=== PATIENT | female | born 1995 | race Caucasian/White ===

== ENCOUNTER 2023-05-10 20:47 | Outpatient (REF) | payer OTHER, SELFPAY ==
[2023-05-16 16:09] LABS: Age Gdln ACOG Testing Note (.); IGP, rfx Aptima HPV ASCU Note (.)
== END 2023-05-10 20:48 | disposition home or self-care (01) ==
LOC: LAB 20:47
PROVIDERS: PCP Family Medicine; Visit Provider Physician Assistant
DX: Z12.4 Encounter for screening for malignant neoplasm of cervix (principal)
CPT/HCPCS: G0145

== ENCOUNTER 2023-10-27 09:34 | Emergency (ER) | payer OTHER, SELFPAY ==
[2023-10-27 09:44] VITALS: BP 153/93; PULSE 56; RESP 16; TEMP 36.6; O2SAT 99; BMI 68.0
--- NOTE | 2023-10-27 09:54 | US_ITS ---
The [address] [address] Patient Name: MADDIE PACHECO MRN: [id number] date: 1995 Sex: F Assigned Patient Location: ED.MAIN Current Patient Location: ER Accession/Order Number: [id number] Exam Date: 10/27/2023 10:15 Report Date: 10/27/2023 10:42 At the request of: DUARTE ROBERTS Procedure: US right upper quadrant EXAMINATION: US right upper quadrant HISTORY: Right upper quadrant pain COMPARISON: No relevant comparison available. TECHNIQUE: Transabdominal evaluation of the right upper quadrant. FINDINGS: LIVER: Mild fatty infiltration. Color Doppler demonstrates patent hepatic veins. PORTAL VEIN: Duplex Doppler demonstrates normal hepatopetal flow pattern with flow velocity averaging 26 cm/s. GALLBLADDER: No visible gallstones, wall thickening, or pericholecystic free fluid. Negative sonographic Walters's sign. BILIARY: No abnormal dilation or stones. Common bile duct diameter is within normal limits. PANCREASE: No visible mass, abnormal atrophy, or duct dilation. KIDNEY: No hydronephrosis. No visible mass or stones. Size: 11.6 x 5.9 x 6.5 cm US/US right upper quadrant IMPRESSION: 1. No acute or suspicious findings to account for patient's symptoms. Electronically authenticated by: ULI INGRAM Date: 10/27/2023 10:42
--- NOTE | 2023-10-27 09:59 | ED.ABDPAIN1 ---
HPI - Abdominal Pain General Chief Complaint: Abdominal Pain Stated Complaint: ABD PAIN Time Seen by Provider: 10/27/23 09:38 Source: patient Mode of arrival: walk-in Limitations: no limitations History of Present Illness HPI narrative: 28-year-old female presents for right upper quadrant abdominal pain that she has had intermittently for 3 days. It seems to come on more when she eats. She was seen at another hospital yesterday and had blood work and was given a prescription for an outpatient ultrasound of her gallbladder which she has not yet done. No fever or trauma. Related Data Home Medications Medication Instructions Recorded Confirmed albuterol sulfate 90 mcg/actuation 1 inh inhalation Q6H PRN shortness 10/27/23 10/27/23 aerosol inhaler of breath or wheezing buspirone 15 mg tablet 30 mg PO BIDWM 10/27/23 10/27/23 citalopram 20 mg tablet 20 mg PO DAILY 10/27/23 10/27/23 lisinopril 10 mg tablet 10 mg PO DAILY 10/27/23 10/27/23 omeprazole 20 mg capsule,delayed 20 mg PO DAILY 10/27/23 10/27/23 release Allergies Allergy/AdvReac Type Severity Reaction Status Date / Time sumatriptan [From Imitrex] Allergy Severe Difficulty Verified 10/27/23 09:55 Breathing Review of Systems ROS Narrative A ten point review of systems is negative except as noted above. Exam Narrative Exam Narrative: Nurses note and vital signs reviewed and patient is not hypoxic. General: The patient appears well and in no apparent distress. Patient is resting comfortably on cart. Skin: Warm, dry, no pallor noted. There is no rash noted. Head: Normocephalic, atraumatic Eye: Normal conjunctiva, no drainage Ears, Nose, Mouth, and Throat: oral mucosa is moist. Nares patent. Cardiovascular: Regular Rate and Rhythm Respiratory: Patient is in no distress, no accessory muscle use, lungs are clear to auscultation, no wheezing, rales or rhonchi Back: non-tender GI: Obese, minimal tenderness in the right upper quadrant Musculoskeletal: The patient has no evidence of calf tenderness, no pitting edema, symmetrical pulses noted bilaterally Neurological: A&O, normal speech Psychiatric: Cooperative Constitutional Vital Signs, click to edit/add: Last Vital Signs Temp 98 F 10/27/23 09:44 Pulse 56 L 10/27/23 09:44 Resp 16 10/27/23 09:44 BP 153/93 H 10/27/23 09:44 Pulse Ox 99 10/27/23 09:44 O2 Del Method Room Air 10/27/23 09:44 Course Vital Signs Vital signs: Vital Signs Temperature 98 F 10/27/23 09:44 Pulse Rate 56 L 10/27/23 09:44 Respiratory Rate 16 10/27/23 09:44 Blood Pressure 153/93 H 10/27/23 09:44 Pulse Oximetry 99 10/27/23 09:44 Oxygen Delivery Method Room Air 10/27/23 09:44 Temperature 98 F 10/27/23 09:44 Pulse Rate 56 L 10/27/23 09:44 Respiratory Rate 16 10/27/23 09:44 Blood Pressure 153/93 H 10/27/23 09:44 Pulse Oximetry 99 10/27/23 09:44 Oxygen Delivery Method Room Air 10/27/23 09:44 MDM - Abdominal Pain MDM Narrative Medical decision making narrative: Gallbladder ultrasound here is negative. We obtained records from other hospital and she had a negative noncontrasted CAT scan and her blood work was negative as well. She is being discharged home and will follow-up with her PCP if symptoms persist. Treatment diagnosis and follow-up were discussed with the patient. Differential Diagnosis Differential diagnosis: Likely abdominal pain, constipation and gastroenteritis Imaging Data Gallbladder ultrasound: Radiologist's impression: ITS Impressions Upper Quadrant Ultrasound 10/27/23 09:54 IMPRESSION: 1. No acute or suspicious findings to account for patient's symptoms. Electronically authenticated by: ULI INGRAM Date: 10/27/2023 10:42 Discharge Plan Discharge Chief Complaint: Abdominal Pain Clinical Impression: Abdominal pain Patient Disposition: Home, Self-Care Time of Disposition Decision: 10:49 Condition: Good Mode of Transportation: Private Vehicle Prescriptions / Home Meds: No Action albuterol sulfate 90 mcg/actuation HFA aerosol inhaler 1 inh INHALATION Q6H PRN (Reason: shortness of breath or wheezing) buspirone 15 mg tablet 30 mg PO BIDWM citalopram 20 mg tablet 20 mg PO DAILY lisinopril 10 mg tablet 10 mg PO DAILY omeprazole 20 mg capsule,delayed release(DR/EC) 20 mg PO DAILY Instructions: Abdominal Pain (ED) Stand Alone Forms: Portal Instructions Referrals: JESSICA MARISCAL [Primary Care Provider] - 1 week
== END 2023-10-27 11:15 | disposition home or self-care (01) ==
PROVIDERS: Emergency Provider Emergency Medicine; PCP Family Medicine
DX: R10.11 Right upper quadrant pain (principal); E66.9 Obesity, unspecified; Z68.44 Body mass index [BMI] 60.0-69.9, adult
CPT/HCPCS: 76705; 99284

== ENCOUNTER 2025-03-25 07:46 | Outpatient (OUT) | payer OTHER, SELFPAY ==
--- OUTSIDE RECORDS SUMMARY | 2025-03-20 08:30 | XMS_ITS | Encounter Summary ---
Author Organization [facility] Address [address] [place] [address] Care Team Providers Care Supervisor Pl[employer] Name Role Phone Riddhi Plata MD Primary Care Provider [phone] Encounter Details Date Type Department Care Team (Late st Contact Info) Description 03/20/2025 8:30 AM EDT Ancillary Procedure [facility] [address] [place] [address] Missed menses Social History Tobacco Use Types Packs/Day Years Used Date Smoking Tobacco: Never Smokeless Tobacco: Never Alcohol Use Standard Drinks/Week Comments Never 0 (1 standard drink = 0.6 oz pure alcohol) Caffeine intake: 1-2 cups per day coffee Estimated Date of Delivery Comme nts Yes 10/16/2025 Based on last me nstrual period of 01/09/2025 Sex and Gender Information Value Date Recorded Sex Assigned at Not on file Legal Sex Female 9:44 PM EDT Gender Identity Not on file Sexual Orientation Not on file documented as of this encounter Plan of Treatment Upcoming Encounters Date Type Department Care Team (Late st Contact Info) Description 04/20/2025 9:10 AM EDT Routine [facility] [address] [address] Bin Morales DO [address] [facility] [place] [address] documented as of this encounter Goals Goal Patient Goal Type Associated Problems Recent Progress Patient-Stated? Author Help patient manage antidepressant medication Care Plan Patient on antidepressant monitoring plan Riddhi Atkinson MD Baseline PHQ-9 Care Plan Baseline PHQ-9 No Riddhi Plata MD documented as of this encounter Procedures Procedure Name Priority Date/Time Associated Diagnosis Comments US OB TRANSVAGINAL Routine 03/20/2025 8: 54 AM EDT Missed menses documented in this encounter Results * US OB transvaginal (03/20/2025 8:54 AM EDT) Anatomical Region Laterality Modality Body Ultrasound 03/20/2025 6:11 PM EDT Impressions 03/23/2025 8:01 AM EDT Findings consistent with a live intrauterine gestation, current sonographic age of 9 weeks and 2 days resulting in an estimated date of delivery of October 21, 2025. TRANSCRIBED BY: ELECTRONICALLY SIGNED BY: Aman Amado MD Narrative 03/23/2025 8:01 AM EDT FINDINGS: A single intrauterine gestational sac is present. No subchorionic hemorrhage. A single pole is present. Normal heart rate at 184 beats per minute. Yolk sac also is seen. Current sonographic age is 9 weeks and 2 days. Based on this age, current estimated date of delivery is October 21, 2025. No pelvic fluid or adnexal mass present. Cervical length is 4.3 cm, closed. Procedure Note Aman Amado MD - 03/23/2025 FINDINGS: A single intrauterine gestational sac is present. No subchorionichemorrhage. A single pole is present. Normal heart rate at184 beats per minute. Yolk sac also is seen. Current sonographic age is9 weeks and 2 days. Based on this age, current estimated date of deliveryis October 21, 2025. No pelvic fluid or adnexal mass present. Cervicallength is 4.3 cm, closed. IMPRESSION: Findings consistent with a live intrauterine gestation, currentsonographic age of 9 weeks and 2 days resulting in an estimated date ofdelivery of October 21, 2025. TRANSCRIBED BY: ELECTRONICALLY SIGNED BY: Aman Amado MD us Bin Carmen DO IMG OB US PROCEDURES Final Resul t documented in this encounter Visit Diagnoses Diagnosis Missed menses documented in this encounter Additional Health Concerns Active Problems Noted Date Diagnosed Date Patient on antidepressant monitoring plan 2023 Baseline PHQ-9 02/01/2024 documented as of this encounter Care Teams Supervisor Plastic Sheets Relationship Specialty Start Date End Date Riddhi Plata MD [address] [place] [address] PCP - General Family Medicine 01/16/23 documented as of this encounter
--- OUTSIDE RECORDS SUMMARY | 2025-03-20 09:00 | XMS_ITS | Encounter Summary ---
Author Organization [facility] Address [address] [place] [address] Care Team Providers Care Director Sales And Trade [employer] Name Role Phone Riddhi Plata MD Primary Care Provider [phone] Reason for Visit * Reason Comments Routine Visit Encounter Details Date Type Department Care Team (Late st Contact Info) Description 03/20/2025 9:00 AM EDT Initial [facility] [address] [place] [address] GA: 10w0d Social History Tobacco Use Types Packs/Day Years [...] on file documented as of this encounter Last Filed Vital Signs Vital Sign Reading Time Taken Comments Blood Pressure 118/70 03/20/2025 9:27 AM EDT Pulse - - Temperature - - Respiratory Rate - - Oxygen Saturation - - Inhaled Oxygen Concentration - - Weight 103 kg (227 lb) 03/20/2025 9:27 AM EDT Height - - Body Mass Index 42.89 10/10/2024 3:32 PM EST documented in this encounter Progress Notes * Leslye Chairez LPN - 03/20/2025 9:00 AM EDT Reason for Appointment: Patient ID: Shira Jett is a 29 y.o. female who presents for Routine Visit Patient presents today for a Nurse OB Intake appointment. Patient is 10w0d with a Estimated Date ofDelivery: 10/16/25 OB History Para Term AB Living 3 2 1 2 SAB IAB Ectopic Multiple Live Births # Outcome Date GA Lbr [place]/2nd Weight Sex Type Anes PTL Lv 3 Current 2 Para 11/20/21 8 lb 3 oz Vag-Spont 1 Term 11/18/18 39w0d 8 lb 2 oz M Vag-Spont Current Medications: has a current medication list which includes the following prescription(s): albuterol hfa, buspirone, citalopram, cyanocobalamin, omeprazole, ondansetron odt, and vitamins. Medical History: Active Ambulatory Problems Diagnosis Date Noted Morbid obesity with body mass index of 60.0-69.9 in [place] 01/26/2023 Polycystic ovarian disease 01/26/2023 Primary hypertension 01/26/2023 Adjustment disorder with anxiety 11/30/2021 Amnesia 05/17/2023 Anxiety 07/07/2019 Anemia 06/26/2019 Depression 06/13/2019 Disorder of endocrine system 05/17/2023 Family history of diabetes during 11/28/2021 Family history of thrombosis 03/17/2022 Frequent headaches 05/17/2023 Gastroesophageal reflux disease 12/15/2019 Gestational diabetes mellitus (GDM) ([facility]) 12/09/2018 History of diet controlled gestational diabetes mellitus (GDM) 11/30/2021 Iron deficiency anemia 12/29/2019 Irregular periods 05/17/2023 Menorrhagia with regular cycle 05/17/2023 Asthma ([facility]) 12/09/2018 Class 3 severe obesity due to excess calories with serious comorbidity and body mass index (BMI) of50.0 to 59.9 in adult [place] 05/17/2023 Nausea and vomiting 05/17/2023 Pneumonia due to infectious organism 07/30/2022 Preeclampsia in period ([facility]) 11/26/2021 Acute pulmonary embolism ([facility]) 05/17/2023 Single subsegmental pulmonary embolism without acute cor pulmonale ([facility]) 05/17/2023 Seasonal allergic rhinitis due to pollen 12/15/2019 Thyroid nodule 05/17/2023 Urinary tract infection without hematuria 05/17/2023 LUCIANO on CPAP 02/22/2023 History of pulmonary embolism 03/17/2022 Resolved Ambulatory Problems Diagnosis Date Noted No Resolved Ambulatory Problems Past Medical History: Diagnosis Date Acute memory impairment COVID 02/2020 Encounter for insertion of Mirena IUD GERD without esophagitis Gestational diabetes ([facility]) H/O blood clots H/O gastric bypass H/O: hypertension High blood pressure History of being hospitalized Hormone imbalance Intrauterine device surveillance Irregular bleeding Morbid obesity with BMI of 50.0-59.9, adult [place] Nausea Nausea with vomiting Pneumonia 07/30/2022 hypertension ([facility]) Pulmonary embolism ([facility]) 11/2021 Well woman exam Family History Problem Relation Name Age of Onset Hypertension Mother Diabetes Father Hypertension Father Mental illness Father Cancer Maternal Grandmother Cancer Paternal Grandmother Diabetes Paternal Grandfather Social History Tobacco Use Smoking status: Never Smokeless tobacco: Never Substance Use Topics Alcohol use: Never Comment: Caffeine intake: 1-2 cups per day coffee Drug use: Never Past Surgical History: Procedure Laterality Date CT ANGIOGRAM HEART CORONARY 07/30/2022 CT ANGIOGRAM TAVR 07/30/2022 CT ANGIOGRAM HEART CORONARY 11/23/2018 CT ANGIOGRAM TAVR 11/23/2018 GASTRIC BYPASS 04/23/2024 PELVIC LAPAROSCOPY 11/03/2022 with removal of IUD US GUIDED FINE PERCUTANEOUS ASPIRATION 06/14/2020 US GUIDED FINE PERCUTANEOUS ASPIRATION 06/14/2020 Allergies Allergen Reactions Sumatriptan Unknown and Anaphylaxis IMITREX FOR MIGRAINES Vitals: Estimated body mass index is 42.89 kg/m² as calculated from the following: Height as of 10/10/24: 5' 1 . Weight as of this encounter: 227 lb. BP: 118/70 Patient's last menstrual period was 01/09/2025. Assessment/Plan Diagnoses and all orders for this visit: Missed menses - Type and screen; Future - ABO/Rh; Future - CBC and differential - Hemoglobin A1c - RPR - Rubella antibody, IgG - Hepatitis B surface antigen - Hepatitis C antibody - HIV-1 and HIV-2 antibodies - Urine culture - POCT , urine manually resulted - POCT urinalysis dipstick manually resulted , unspecified [facility] - Type and screen; Future - ABO/Rh; Future - CBC and differential - Hemoglobin A1c - RPR - Rubella antibody, IgG - Hepatitis B surface antigen - Hepatitis C antibody - HIV-1 and HIV-2 antibodies - Rapid drug screen, urine; Future - ondansetron ODT (Zofran-ODT) 4 MG disintegrating tablet; Take 1 tablet (4 mg) by mouth every 6 (six) hours if needed for nausea or vomiting - Vit-Fe Fumarate-FA ( Vitamins) 28-0.8 MG tablet; Take 1 tablet by mouth Daily Encounter for supervision of normal first in first trimester ([facility]) - Rapid drug screen, urine; Future - Vit-Fe Fumarate-FA ( Vitamins) 28-0.8 MG tablet; Take 1 tablet by mouth Daily Nausea - ondansetron ODT (Zofran-ODT) 4 MG disintegrating tablet; Take 1 tablet (4 mg) by mouth every 6 (six) hours if needed for nausea or vomiting Nurse Note: OB Intake: Patient presents today for first OB visit. Patients history has been reviewed in great detail including any potential risks. Patient signed consent forms and patient desires testing in both trimesters. Patient currently has no complaints and has been advised to drink 6-8 glasses of water a day, eatno raw or undercooked meat, and stay away from [facility]. Patient has also been advised to not change litter boxes and eat 6 small meals a day. Patient has been consulted regarding the do's and don'ts ofpregnancy. Patient was given labs and all questions and concerns were answered. Patient given Frohna to have completed with initial labs and scripts for Zofran and prenatals sent in at this time. Follow Up: Patient is to return in 4 weeks for routine OB appointment. Follow Up: Patient is to have labs drawn at directed and return to office for initial OB appointment with provider. Patient may call office as needed with any concerns or questions. Nurse Visit Completed by: Leslye Chairez LPN documented in this encounter Plan of Treatment Upcoming Encounters Date Type Department Care Team (Late st Contact Info) Description 04/20/2025 9:10 AM EDT Routine [facility] [address] [place] [address] Bin Morales, DO [address] [place] [place] [address] Scheduled Orders Name Type Priority Associated Diagnoses Orde r Schedule Type and screen Lab Routine Missed menses , unspecified gestational age ([facility]) Expected: 03/20/2025 (Approximate), Expires: 03/20/2026 ABO/Rh Lab Routine Missed menses , unspecified gestational age ([facility]) Expected: 03/20/2025 (Approximate), Expires: 03/20/2026 CBC and differential Lab Routine Missed menses , unspecified gestational age ([facility]) Ordered: 03/20/2025 Hemoglobin A1c Lab Routine Missed menses , unspecified gestational age ([facility]) Ordered: 03/20/2025 RPR Lab Routine Missed menses , unspecified gestational age ([facility]) Ordered: 03/20/2025 Rubella antibody, IgG Lab Routine Missed menses , unspecified gestational age ([facility]) Ordered: 03/20/2025 Hepatitis B surface antigen Lab Routine Missed menses , unspecified gestational age ([facility]) Ordered: 03/20/2025 Hepatitis C antibody Lab Routine Missed menses , unspecified gestational age ([facility]) Ordered: 03/20/2025 HIV-1 and HIV-2 antibodies Lab Routine Missed menses , unspecified gestational age ([facility]) Ordered: 03/20/2025 Urine culture Microbiology Routine Missed menses Ordered: 03/20/2025 Rapid drug screen, urine Lab Routine , unspecified gestational age ([facility]) Encounter for supervision of normal first in first trimester ([facility]) Expected: 03/20/2025 (Approximate), Expires: 03/20/2026 documented as of this encounter Goals Goal Patient Goal Type Associated Problems Recent Progress Patient-Stated? Author Help patient manage antidepressant medication Care Plan Patient on antidepressant monitoring plan No Riddhi Plata MD Baseline PHQ-9 Care Plan Baseline PHQ-9 No Riddhi Plata MD documented as of this encounter Procedures Procedure Name Priority Date/Time Associated Diagnosis Comments POCT , URINE Routine 03/20/2025 9:06 AM EDT Missed menses POCT URINALYSIS DIPSTICK Routine 03/20/2025 9:06 AM EDT Missed menses documented in this encounter Results * POCT urinalysis dipstick manually resulted (03/20/2025 9:06 AM EDT) Color, UA Yellow Clarity, UA Clear Glucose, UA Negative Negative - 2000(110) ++++ mg/dL Bilirubin, UA Negative Negative - 4(70) +++ mg/dL Ketones, UA Negative Negative - 160(16) ++++ mg/dL Spec Grav, UA 1.020 1 - 1.03 Blood, UA Negative Negative - 50 Raul/mcL pH, UA 6.0 5 - 9 Protein, UA Negative Negative - 2000(20) ++++ mg/dL Urobilinogen, UA 2.0 0.2 - 12 mg/dL Leukocytes, UA Trace Negative - 500+++ Ramo/mcL Nitrite, UA Negative Negative - Positive Urine 03/20/2025 9:06 AM EDT Bin Carmen DO POINT OF CARE TEST ENTER/EDIT OR DERABLES Final Result * POCT , urine manually resulted (03/20/2025 9:06 AM EDT) Preg Test, Ur Positive Negative Urine 03/20/2025 9:06 AM EDT Bin Carmen DO POINT OF CARE TEST ENTER/EDIT OR DERABLES Final Result documented in this encounter Visit Diagnoses Diagnosis Missed menses , unspecified gestational age ([facility]) Encounter for supervision of normal first in first trimester ([facility]) Nausea Nausea alone documented in this encounter Additional Health Concerns Active Problems Noted Date Diagnosed Date Patient on antidepressant monitoring plan 2023 Baseline PHQ-9 02/01/2024 documented as of this encounter Care Teams Director Sales And Trade Marketing Relationship Specialty Start Date End Date Riddhi Plata MD [address] [place] [address] PCP - General Family Medicine 01/16/23 documented as of this encounter
--- OUTSIDE RECORDS SUMMARY | 2025-03-25 07:50 | XMS_ITS | Encounter Summary ---
Author Organization Movie[employer] tem Address [id number] [address] [place] [address] Care Team Providers Care Coal Trimmer Machine Operator Name Role Phone Riddhi Plata MD Primary Care Provider [phone] Reason for Visit * Reason Comments Med Refill Encounter Details Date Type Department Care Team (Late st Contact Info) Description 10/19/2024 Refill [facility] [address] [facility]. [address] [place] [phone] Moriah Lira PAPamelaC [address] [facility] [address] [place] [address] Malnutrition following gastrointestinal surgery; Postsurgical malabsorption; H/O gastric bypass Social History Tobacco Use Types Packs/Day Years Used Date Smoking Tobacco: Never Smokeless Tobacco: Never Alcohol Use Standard Drinks/Week Comments Not Currently 0 (1 standard drink = 0.6 oz pur e alcohol) social AHC Utilities Answer Date Recorded In the past 12 months has [employer], gas, oil, or water [employer] threatened to shut off services in your home? No 04/23/2024 AUDIT-C Answer Date Recorded Q1: How often do you have a drink containing alcohol? Never 04/23/2024 Q2: How many drinks containi ng alcohol do you have on a typical day when you are drinking? Patient does not drink Q3: How often do you have si x or more drinks on one occasion? Never 04/23/2024 PHQ-2 Answer Date Recorded Total Score 0 04/23/2024 PRAPARE - Transportation Answer Date Re corded In the past 12 months, has l ack of transportation kept you from medical appointments or from getting medications? No 04/10 In the past 12 months, has l ack of transportation kept you from meetings, work, or from getting things needed for daily living? No 04/23/2024 Housing Instability Answer Date Recorde d Are you worried or concerned that in the next two months you may not have stable housing that you own, rent or stay in as a part of a household? No 04/23/2024 Childcare Answer Date Recorded Childcare Unknown 02/13/2019 Employment Answer Date Recorded Employment Unknown 02/13/2019 Hunger Screening Answer Date Recorded Within the past 12 months we worried whether our food would run out before we got money to buy more. Never True 04/23/2024 Within the past 12 months th e food we bought just didn't last and we didn't have money to get more. Never True 04/23/2024 Purpose - Life Answer Date Recorded Purpose and direction in life Unknown Comments No Sex and Gender Information Value Date Recorded Sex Assigned at Female 07/30/2022 9:31 PM EST Legal Sex Female 11:49 AM EDT Gender Identity Female 07/30/2022 9:31 PM EST Sexual Orientation Straight 07/30/2022 9: 31 PM EST documented as of this encounter Plan of Treatment Upcoming Encounters Date Type Department Care Team (Late st Contact Info) Description 04/23/2025 8:30 AM EDT Office Visit [facility] [address] [facility]. [address] [place] [phone] Ken Manzo MD [address] [facility] [address] [place] [address] documented as of this encounter Goals Goal Patient Goal Type Associated Problems Recent Progress Patient-Stated? Author safe discharge to home General Yes Kate Blanton, RN Note: Evaluation of progress towards goal: safe transition from hospital to home with family support. documented as of this encounter Visit Diagnoses Diagnosis Malnutrition following gastrointestinal surgery Other and unspecified postsurgical nonabsorption Postsurgical malabsorption H/O gastric bypass documented in this encounter Additional Health Concerns Assessment Noted Time PHQ-9 Depression Total Score: 0 04/23/20 24 3:05 PM EDT documented as of this encounter Care Teams Coal Trimmer Machine Operator Relationship Specialty Start Date End Date Riddhi Plata MD PCP - General Family Medicine 12/09/23 documented as of this encounter
--- OUTSIDE RECORDS SUMMARY | 2025-03-25 07:50 | XMS_ITS | Encounter Summary ---
Author Organization [employer] tem Address [id number] [address] [place] [address] Care Team Providers Care Health Counselor Name Role Phone Riddhi Plata MD Primary Care Provider [phone] Reason for Visit * Reason Comments Med Refill Encounter Details Date Type Department Care Team (Late st Contact Info) Description 09/11/2024 Refill [facility] [address] [facility]. [address] [place] [phone] Moriah Lira PAPamelaC [address] [facility] [address] [place] [address] Social History Tobacco Use Types Packs/Day Years Used Date Smoking Tobacco: Never Smokeless Tobacco: Never Alcohol Use Standard Drinks/Week Comments Not Currently 0 (1 standard drink = 0.6 oz pur e alcohol) social AHC Utilities Answer Date Recorded In the past 12 months has [employer], gas, oil, or water company threatened to shut off services in your [...] PM EST documented as of this encounter Miscellaneous Notes * Telephone Encounter - Moriah Lira PA-C - 09/11/2024 8:12 PM EST Needs appointment documented in this encounter Plan of Treatment Upcoming Encounters Date Type Department Care Team (Late st Contact Info) Description 04/23/2025 8:30 AM EDT Office Visit [facility] [address] [facility]. [address] [place] [phone] Ken Manzo MD [address] [address] documented as of this encounter Goals Goal Patient Goal Type Associated Problems Recent Progress Patient-Stated? Author safe discharge to home General Yes Kate Blanton, RN Note: Evaluation of progress towards goal: safe transition from hospital to home with family support. documented as of this encounter Visit Diagnoses Not on filedocumented in this encounter Additional Health Concerns Assessment Noted Time PHQ-9 Depression Total Score: 0 04/23/20 24 3:05 PM EDT documented as of this encounter Care Teams Health Counselor Relationship Specialty Start Date End Date Riddhi Plata MD PCP - General Family Medicine 12/09/23 documented as of this encounter
--- OUTSIDE RECORDS SUMMARY | 2025-03-25 07:50 | XMS_ITS | Clinical Summary ---
Author Organization [employer] tem Address [id number] [address] [place] [address] Care Team Providers Care Fluxer Name Role Phone Riddhi Plata MD Primary Care Provider [phone] Allergies Active Allergy Reactions Criticality Noted Date Comments Sumatriptan Anaphylaxis,Other (S ee Comments) High 11/28/2018 IMITREX FOR MIGRAINES Medications albuterol (PROVENTIL HFA;VENTOLIN HFA) 90 mcg/actuation inhalerIndications: Mild intermittent asthma, unspecified whether complicated Inhale 2 puffs every 4 (four) hours as needed for wheezing. 18 g 07/28/20 22 Active lisinopriL (PRINIVIL,ZESTRIL) 20 mg tablet Take 0.5 tablets (10 mg total) by mouth in the morning. Active citalopram (CeleXA) 20 mg tabletIndications:a nxiety with depression Take 1 tablet (20 mg total) by mouth nightly Indications: anxiousness associated with depression. Active omeprazole (PriLOSEC) 40 mg capsule Take 1 capsule (40 mg total) by mouth every morning before breakfast. 90 capsule 04/24/20 24 Active folic acid (FOLVITE) 1 mg tabletIndications:H istory of Arlene-en-Y gastric bypass,Postsurgical malabsorption,Malnu trition following gastrointestinal surgery,Folate deficiency Take 1 tablet (1 mg total) by mouth in the morning. 90 tablet 01/03/20 Active ferrous sulfate 325 (65 FE) MG tabletIndications:H istory of Arlene-en-Y gastric bypass,Postsurgical malabsorption,Malnu trition following gastrointestinal surgery,Iron deficiency Take 1 tablet (325 mg total) by mouth in the morning. 90 tablet 01/03/20 Active cyanocobalamin (VITAMIN B-12) 1,000 mcg/mL injectionIndication s:History of Arlene-en-Y gastric bypass,Postsurgical malabsorption,Malnu trition following gastrointestinal surgery,B12 deficiency Inject 1 mL (1,000 mcg total) into the appropriate muscle every 30 (thirty) days. 3 mL 1 01/03/20 Active syringe with needle (BD LUER-KARENA SYRINGE) 3 mL 25 x 1 1/2 syringeIndications: History of Arlene-en-Y gastric bypass,Postsurgical malabsorption,Malnu trition following gastrointestinal surgery,B12 deficiency 1 SYRG by miscellaneous route every 30 (thirty) days. 3 each 1 01/03/20 Active Active Problems Problem Noted Date Diagnosed Date H/O gastric bypass 12/30/2024 Postsurgical malabsorption 12/30/2024 Malnutrition following gastrointestinal surgery 12/30/2024 Class 3 severe obesity with body mass index (BMI) of 60.0 to 69.9 in adult 04/23/2024 LUCIANO on CPAP 02/22/2023 History of pulmonary embolism 03/17/2022 Family history of thrombosis 03/17/2022 Asthma 12/09/2018 Resolved Problems Problem Noted Date Diagnosed Date Resolved Date Pneumonia due to infectious organism, unspecified laterality, unspecified part of lung 07/30/2022 05/24/2023 Gestational diabetes 12/09/2018 024 Preeclampsia, severe 11/23/2018 024 Encounters Date Type Department Care Team Description 01/01/2025 11:30 AM EDT Office Visit [facility] [address] [place] [phone] Ken Manzo MD Hoitenga, Kathleen M, PAPamelaC History of Arlene-en-Y gastric bypass (Primary Dx); Postsurgical malabsorption; Malnutrition following gastrointestinal surgery; History of anemia; B12 deficiency; Iron deficiency; Folate deficiency 01/01/2025 9:10 AM EDT - 01/01/2025 11:59 PM EDT Hospital Encounter [facility] [address] [place] [phone] Malnutrition following gastrointestinal surgery; Postsurgical malabsorption; H/O gastric bypass; History of anemia Discharge Disposition: Home 01/01/2025 Travel from Last 3 Months Immunizations No known immunizations Family History Medical History Relation Name Comments Arthritis Father Philip COPD Father Philip Clotting disorder Father Philip Depression Father Philip Diabetes Father Philip Hypertension Father Philip Mental illness Father Philip defects Maternal Grandfather Breast cancer Maternal Grandmother Bhavana Diabetes Maternal Grandmother Bhavana Ovarian cancer Maternal Grandmother Bhavana Anemia Mother Lynn Diabetes Mother Lynn Hypertension Mother Lynn defects Paternal Grandfather Shola Diabetes Paternal Grandfather Shola Asthma Paternal Grandmother Gary Breast cancer Paternal Grandmother Gary Diabetes Paternal Grandmother Gray Anesthesia problems Neg Hx Relation Name Status Comments Father Philip Alive Maternal Grandfather Maternal Grandmother Bhavana Mother Lynn Alive Paternal Grandfather Shola Paternal Grandmother Gary Social History Tobacco Use Types Packs/Day Years Used Date Smoking Tobacco: Never Smokeless Tobacco: Never Tobacco Cessation:Counseling Given: Not Answered Alcohol Use Standard Drinks/Week Comments Not Currently 0 (1 standard drink = 0.6 oz pur e alcohol) social [employer] Utilities Answer Date Recorded In the past 12 months has e [email or web address], gas, oil, or water [employer] threatened to shut off services in your [...] got money to buy more. Never True 12/15/2024 Within the past 12 months th e food we bought just didn't last and we didn't have money to get more. Never True 12/15/2024 Purpose - Life Answer Date Recorded Purpose and direction in life Unknown Comments No Sex and Gender Information Value Date Recorded Sex Assigned at Female 07/30/2022 9:31 PM EST Legal Sex Female 11:49 AM EDT Gender Identity Female 07/30/2022 9:31 PM EST Sexual Orientation Straight 07/30/2022 9: 31 PM EST Last Filed Vital Signs Vital Sign Reading Time Taken Comments Blood Pressure 110/73 01/01/2025 11:00 AM EDT Pulse 84 01/01/2025 11:00 AM EDT Temperature 36.6 C (97.8 F) 12/15/2024 1:00 PM EDT Respiratory Rate 18 12/15/2024 2:31 PM EDT Oxygen Saturation 100% 01/01/2025 11: 00 AM EDT Inhaled Oxygen Concentration - - Weight 108.7 kg (239 lb 11.2 oz) 2024 11:00 AM EDT Height 154.9 cm (5' 0.98 ) 01/01/2025 1 1:00 AM EDT Body Mass Index 45.31 01/01/2025 11:00 AM EDT Plan of Treatment Upcoming Encounters Date Type Department Care Team (Late st Contact Info) Description 04/23/2025 8:30 AM EDT Office Visit [facility] [address] [facility] [address] [place] [phone] Ken Manzo MD [address] [address] Health Maintenance Due Date Last Done Comments Pap Smear 2015 DTaP,Tdap and Td Vaccines (7 - Td or Tdap) 12/01/2018 12/01/2008, 01/14/1999, 10/23/1996, Additional history exists Depression Screening 04/23/2025 04/23/2024 Adult BMI Follow Up Plan 05/01/2025 05/01/2024 Influenza Vaccine 05/11/2025 08/11/2019, 07/11/2011 Adult BMI Screening 01/01/2026 01/01/2025 Tobacco Screening 01/01/2026 01/01/2025 Goals Goal Patient Goal Type Associated Problems Recent Progress Patient-Stated? Author safe discharge to home General Yes Kate Blanton, RN Note: Evaluation of progress towards goal: safe transition from hospital to home with family support. Medical Devices Not on file Procedures Procedure Name Priority Date/Time Associated Diagnosis Comments CBC WITH AUTO DIFFERENTIAL Routine 01/01/2025 9:09 AM EDT Malnutrition following gastrointestinal surgery Postsurgical malabsorption H/O gastric bypass History of anemia FERRITIN Routine 01/01/2025 9:09 AM EDT Malnutrition following gastrointestinal surgery Postsurgical malabsorption H/O gastric bypass History of anemia FOLATE Routine 01/01/2025 9:09 AM EDT Malnutrition following gastrointestinal surgery Postsurgical malabsorption H/O gastric bypass History of anemia IRON AND TIBC Routine 01/01/2025 9:09 AM EDT Malnutrition following gastrointestinal surgery Postsurgical malabsorption H/O gastric bypass History of anemia LIVER PANEL Routine 01/01/2025 9:09 AM EDT Malnutrition following gastrointestinal surgery Postsurgical malabsorption H/O gastric bypass History of anemia THIAMIN (VITAMIN B1), WB Routine 01/01/2025 9:09 AM EDT Malnutrition following gastrointestinal surgery Postsurgical malabsorption H/O gastric bypass History of anemia VITAMIN B12 Routine 01/01/2025 9:09 AM EDT Malnutrition following gastrointestinal surgery Postsurgical malabsorption H/O gastric bypass History of anemia VITAMIN D 25 HYDROXY Routine 01/01/2025 9:09 AM EDT Malnutrition following gastrointestinal surgery Postsurgical malabsorption H/O gastric bypass History of anemia from Last 3 Months Results * Thiamin (Vitamin B1), WB (01/01/2025 9:09 AM EDT) Pathologist [facility] Thiamine 118 70 - 180 nmol/L 01/04/2025 5:06 AM EDT [facility] Comment: NOTE ADDITIONAL INFORMATION This test was developed and its performance characteristics determined by [facility] in a manner consistent with CLIA requirements. This test has not been cleared or approved by the U.S. Food and Drug Administration. Test Performed by: [facility] - [facility] [address] [place] [address] Answering Service Agent: Jayce Daniels Ph.D.; CLIA# [id number] Blood Blood / Unknown 01/01/2025 9 :09 AM EDT 01/01/2025 9:11 AM EDT us May Dunlap ELECTRONIC TECHNOLOGIST-BANKRUPTCY LEGAL ASSISTANT LAB BLOOD ORDERABLES Fi nal Result [address] [place] [address] * (ABNORMAL) CBC auto differential (01/01/2025 9:09 AM EDT) Pathologist [facility] White Blood Cells 10.5 4.0 - 11.0 X10E9/L 01/01/2025 1:40 PM EDT [facility] RBC count 4.45 3.80 - 5.20 X10E12/L 01/01/2025 1:40 PM EDT [facility] Hemoglobin 12.8 11.7 - 15.5 g/dL 01/01/2025 1:40 PM EDT [facility] Hematocrit 38.0 35 - 47 % 01/01/2025 1:40 PM EDT [facility] MCV 85 80 - 100 fL 01/01/2025 1:40 PM EDT [facility] MCH 28.8 27 - 34 pg 01/01/2025 1:40 PM EDT [facility] MCHC 33.8 32 - 36 g/dL 01/01/2025 1:40 PM EDT [facility] RDW 14.2 11.5 - 15.0 % 01/01/2025 1:40 PM EDT [facility] Platelets 308 150 - 450 X10E9/L 01/01/2025 1:40 PM EDT [facility] MPV 8.7 7 - 12 fL 01/01/2025 1:40 PM EDT [facility] % neutrophils 57.9 % 01/01/2025 1:40 PM EDT [facility] % lymphocytes 36.4 % 01/01/2025 1:40 PM EDT [facility] % monocytes 4.1 % 01/01/2025 1:40 PM EDT [facility] % eosinophils 0.9 % 01/01/2025 1:40 PM EDT [facility] % Basophils 0.7 % 01/01/2025 1:40 PM EDT [facility] Neutrophils Absolute (A) 6.0 1.5 - 6.6 X10E9/L 01/01/2025 1:40 PM EDT [facility] Lymphocytes Absolute 3.8(H) 1.0 - 3.5 X10E9/L 01/01/2025 1:40 PM EDT [facility] Monocytes Absolute 0.4 0 - 0.9 X10E9/L 01/01/2025 1:40 PM EDT [facility] Eosinophils Absolute 0.1 0.0 - 0.4 X10E9/L 01/01/2025 1:40 PM EDT [facility] Basophils Absolute 0.1 0.0 - 0.2 X10E9/L 01/01/2025 1:40 PM EDT [facility] Blood / Unknown 01/01/2025 9 :09 AM EDT 01/01/2025 9:11 AM EDT [facility] Germ[facility] ELECTRONIC TECHNOLOGIST-[facility] BLOOD ORDERABLES Fi nal Result Performing Organization Address City/[facility]/ZIP Co de Phone Number [facility] [address] [place] [address], [address] [address] * (ABNORMAL) Iron and TIBC (01/01/2025 9:09 AM EDT) Iron 36(L) 50 - 170 ug/dL 01/01/2025 1:55 PM EDT [facility] Tibc-calc only do not order 346 250 - 425 ug/dL 01/01/2025 1:55 PM EDT [facility] Iron Saturation 10(L) 15 - 50 % SATURATION 01/01/2025 1:55 PM EDT [facility] PLASMA 01/01/2025 9:09 AM EDT 01/01/2025 9:11 AM EDT May Germán ELECTRONIC TECHNOLOGIST-[facility] BLOOD ORDERABLES Fi nal Result Performing Organization Address [facility]/ZIP Co de Phone Number [facility] [address] [place] [address], [facility] [address] [place] [address] * Vitamin D 25 hydroxy (01/01/2025 9:09 AM EDT) Vit D, 25-Hydroxy 32.4 30 - 100 ng/mL 01/01/2025 2:17 PM EDT [facility] Comment: Vitamin D status 25 [place] Vitamin D Deficiency <20 ng/mL Insufficiency 20-29 ng/mL Sufficiency 30-100 ng/mL Toxicity >100 ng/mL NOTE: A pediatric reference range has not been established by the sheep farm worker of this kit. The [place] [employer] recommends a Vitamin D level of = or >20ng/mL in infants and children. PLASMA 01/01/2025 9:09 AM EDT 01/01/2025 9:11 AM EDT May Dunlap ELECTRONIC TECHNOLOGIST-BANKRUPTCY LEGAL ASSISTANT LAB BLOOD ORDERABLES Fi nal Result Performing Organization Address City/[facility]/ZIP Co de Phone Number [facility] [address] [place] [address], [address] [address] * (ABNORMAL) Folate (01/01/2025 9:09 AM EDT) Folate 4.0(L) >5.8 ng/mL 01/01/2025 2:14 PM EDT [facility] Comment:NEW REFERENCE RANGE PLASMA 01/01/2025 9:09 AM EDT 01/01/2025 9:11 AM EDT May Dunlap ELECTRONIC TECHNOLOGIST-BANKRUPTCY LEGAL ASSISTANT LAB BLOOD ORDERABLES Fi nal Result Performing Organization Address [facility]/ZIP Co de Phone Number [facility] [address] [place] [address], [address] [address] * Ferritin (01/01/2025 9:09 AM EDT) Ferritin 40 11 - 307 ng/mL 01/01/2025 2:11 PM EDT [facility] PLASMA 01/01/2025 9:09 AM EDT 01/01/2025 9:11 AM EDT May Dunlap ELECTRONIC TECHNOLOGIST-BANKRUPTCY LEGAL ASSISTANT LAB BLOOD ORDERABLES Fi nal Result Performing Organization Address City/[facility]/ZIP Co de Phone Number [facility] [address] [place] [address], [address] [address] * Vitamin B12 (01/01/2025 9:09 AM EDT) Vitamin B-12 379 180 - 914 pg/mL 01/01/2025 2:13 PM EDT [facility] Serum / Unknown 01/01/2025 9 :09 AM EDT 01/01/2025 9:11 AM EDT May Dunlap ELECTRONIC TECHNOLOGIST-BANKRUPTCY LEGAL ASSISTANT LAB BLOOD ORDERABLES Fi nal Result [facility] [address] [facility] [address] [place] [address] * Liver panel (01/01/2025 9:09 AM EDT) Alkaline phosphatase 95 39 - 130 U/L 01/01/2025 1:55 PM EDT [facility] AST 18 0 - 41 U/L 01/01/2025 1:55 PM EDT [facility] ALT 24 0 - 31 U/L 01/01/2025 1:55 PM EDT [facility] Total Bilirubin 0.4 0.3 - 1.2 mg/dL 01/01/2025 1:55 PM EDT [facility] Bilirubin, direct 0.2 0.0 - 0.4 mg/dL 01/01/2025 1:55 PM EDT [facility] Albumin 4.1 3.2 - 5.3 g/dL 01/01/2025 1:55 PM EDT [facility] Total Protein 7.1 6.0 - 8.0 g/dL 01/01/2025 1:55 PM EDT [facility] PLASMA 01/01/2025 9:09 AM EDT 01/01/2025 9:11 AM EDT May Dunlap ELECTRONIC TECHNOLOGIST-BANKRUPTCY LEGAL ASSISTANT LAB BLOOD ORDERABLES Fi nal Result [facility] [address] [facility] [place] [address] from Last 3 Months Insurance [employer] Member Subscriber Plan / Payer (Ef fective 2023-Present) Name:Shira Jett Relation to Subscriber:Self Name:JohnieShira Libby Payer ID:[id number] (NAIC) Type:Not on file Address: [place] [phone] Advance Directives * Full Code (Latest Code Status on File) Date Activated Date Inactivated Comments 04/23/2024 11:06 AM 04/24/2024 4:47 PM * Full Code Date Activated Date Inactivated Comments 07/30/2022 11:42 PM 07/31/2022 2:48 PM * Full Code Date Activated Date Inactivated Comments 11/24/2018 10:44 PM 11/27/2018 4:48 PM Care Teams Fluxer Relationship Specialty Start Date End Date Riddhi Plata MD PCP - General Family Medicine 12/09/23
--- OUTSIDE RECORDS SUMMARY | 2025-03-25 07:50 | XMS_ITS | Encounter Summary ---
Author Organization [employer] tem Address [facility]-[id number] [address] [place] [address] Care Team Providers Care Distillery Supervisor Name Role Phone Riddhi Plata MD Primary Care Provider [phone] Reason for Visit * Reason Comments Med Refill Encounter Details Date Type Department Care Team (Late st Contact Info) Description 09/04/2024 Refill [facility] [address] [facility]. [address] [place] [phone] Moriah Lira PAPamelaC [address] [facility] [address] [place] [address] Social History Tobacco Use Types Packs/Day Years Used Date Smoking Tobacco: Never Smokeless Tobacco: Never Alcohol Use Standard Drinks/Week Comments Not Currently 0 (1 standard drink = 0.6 oz pur e alcohol) social [employer] Utilities Answer Date Recorded In the past 12 months has [employer], gas, oil, or water company threatened to [...] Telephone Encounter - Moriah Lira PA-C - 09/04/2024 7:50 AM EST Needs appointment documented in this encounter Plan of Treatment Upcoming Encounters Date Type Department Care Team (Late st Contact Info) Description 04/23/2025 8:30 AM EDT Office Visit [facility] [address] [facility] [place] [phone] Ken Manzo MD [address] [address] documented as of this encounter Goals Goal [...] documented as of this encounter Care Teams Distillery Supervisor Relationship Specialty Start Date End Date Riddhi Plata MD PCP - General Family Medicine 12/09/23 documented as of this encounter
--- OUTSIDE RECORDS SUMMARY | 2025-03-25 07:50 | XMS_ITS | Encounter Summary ---
Author Organization [employer] tem Address [facility] [place]-[id number] [address] [place] [address] Care Team Providers Care Toddler Lead Teacher Name Role Phone Riddhi Plata MD Primary Care Provider [phone] Reason for Visit * Reason Comments Med Refill Encounter Details Date Type Department Care Team (Late st Contact Info) Description 07/14/2024 Refill [facility] [address] [facility]. [address] [place] [address] Moriah Lira PAPamelaC [address] [facility] [address] [place] [address] Social History Tobacco Use Types Packs/Day Years Used Date Smoking Tobacco: Never Smokeless Tobacco: Never Alcohol Use Standard Drinks/Week Comments Not Currently 0 (1 standard drink = 0.6 oz pur e alcohol) social [facility] Utilities Answer Date Recorded In the past 12 months has [employer], gas, oil, or water company threatened to [...] Telephone Encounter - Moriah Lira PA-C - 07/14/2024 3:03 PM EST Will discuss possible need for refill at upcoming appointment 07/24/24. documented in this encounter Plan of Treatment Upcoming Encounters Date Type Department Care Team (Late st Contact Info) Description 04/23/2025 8:30 AM EDT Office Visit [facility] [address] [facility] [address] [place] [address] Ken Manzo MD [address] [facility] [place] [address] [place] [address] documented as of this encounter Goals Goal [...] documented as of this encounter Care Teams Toddler Lead Teacher Relationship Specialty Start Date End Date Riddhi Plata MD PCP - General Family Medicine 12/09/23 documented as of this encounter
--- OUTSIDE RECORDS SUMMARY | 2025-03-25 07:50 | XMS_ITS | Encounter Summary ---
Author Organization [employer] [facility] tem Address [facility]-[id number] [address] [place] [address] Care Team Providers Care Historical Archeologist Name Role Phone Riddhi Plata MD Primary Care Provider [phone] Encounter Details Date Type Department Care Team ([facility] st Contact Info) Description 09/01/2020 Orders Only [facility] [address] [facility]. [address] [place] [address] Aman Tang MD [address] [facility], [facility] [address] [place] [address] Social History Tobacco Use Types Packs/Day Years Used Date Smoking Tobacco: Never Smokeless Tobacco: Never Alcohol Use Standard Drinks/Week Comments Yes 0 (1 standard drink = 0.6 oz pur e alcohol) social PHQ-2 Answer Date Recorded Total Score 0 12/24/2018 Childcare Answer Date Recorded Childcare Unknown 02/13/2019 Employment Answer Date Recorded Employment Unknown 02/13/2019 Comments No Sex and Gender Information Value Date Recorded Sex Assigned at Female 07/30/2022 9:31 PM EST Legal Sex Female 11:49 AM EDT Gender Identity Female 07/30/2022 9:31 PM EST Sexual Orientation Straight 07/30/2022 9: 31 PM EST COVID-19 Exposure Response Date Recorded In the last month, have you been in contact with someone who was confirmed or suspected to have Coronavirus / COVID-19? No / Unsure 08/23/2020 9:25 AM EST documented as of this encounter Plan of Treatment Upcoming Encounters Date Type Department Care Team (Late st Contact Info) Description 04/23/2025 8:30 AM EDT Office Visit [facility] [address] [facility]. [address] [place] [id number] Ken Manzo MD [address] [facility] [place] [address] [place] [address] documented as of this encounter Procedures Procedure Name Priority Date/Time Associated Diagnosis Comments SURGICAL PATHOLOGY Routine 09/01/2020 10:00 AM EST documented in this encounter Results * Surgical Pathology (09/01/2020 10:00 AM EST) us Aman Tang MD PATHOLOGY/CYTOLOGY ORDERABLES Final Result MANUALLY TRANSCRIBED RESULTS documented in this encounter Visit Diagnoses Not on filedocumented in this encounter Additional Health Concerns Infection Onset Date Last Indicated Resolved Time COVID-19 Rule-Out 07/28/2022 07/28/2022 07/28/2022 5:50 PM EST COVID-19 Rule-Out 07/30/2022 07/30/2022 07/31/2022 12:22 PM EST COVID-19 Rule-Out 10/17/2022 10/17/2022 10/17/2022 5:21 PM EST Assessment Noted Time PHQ-9 Depression Total Score: 0 12/25/19 19 1:00 PM EDT documented as of this encounter Care Teams Historical Archeologist Relationship Specialty Start Date End Date Riddhi Plata MD PCP - General Family Medicine 12/09/23 documented as of this encounter
--- OUTSIDE RECORDS SUMMARY | 2025-03-25 07:50 | XMS_ITS | Encounter Summary ---
Author Organization [employer] tem Address [facility] [id number] [address] [place] [address] Care Team Providers Care Plastic Sheeting Cutter Name Role Phone Riddhi Plata MD Primary Care Provider [phone] Encounter Details Date Type Department Care Team (Late st Contact Info) Description 05/26/2022 Telephone [facility] [address] [place] [address] Diana Mccray Social History Tobacco Use Types Packs/Day Years Used Date Smoking Tobacco: Never Smokeless Tobacco: Never Alcohol Use Standard Drinks/Week Comments Not Currently 0 (1 standard drink = 0.6 oz pur e alcohol) social PHQ-2 Answer Date Recorded Total Score 0 12/24/2018 Childcare Answer Date Recorded Childcare Unknown 02/13/2019 Employment Answer Date Recorded Employment Unknown 02/13/2019 Purpose - Life Answer Date Recorded Purpose [...] Office Visit [facility] [address] [facility]. [address] [place] [address] Ken Manzo MD [address] [facility] [place] [address] [place] [address] documented as of this encounter Visit Diagnoses [...] documented as of this encounter Care Teams Plastic Sheeting Cutter Relationship Specialty Start Date End Date Riddhi Plata MD PCP - General Family Medicine 12/09/23 documented as of this encounter
--- OUTSIDE RECORDS SUMMARY | 2025-03-25 07:50 | XMS_ITS | Encounter Summary ---
Author Organization [employer] [facility] tem Address [facility] [id number] [address] [place] [address] Care Team Providers Care Slat Basket Maker Name Role Phone Riddhi Plata MD Primary Care Provider [phone] Encounter Details Date Type Department Care Team (Late st Contact Info) Description 01/22/2024 External Surgery [facility] [address] [facility] [address] [place] [phone] Isa Jack CMA Social History Tobacco Use Types Packs/Day Years [...] got money to buy more. Never True 12/09/2023 Within the past 12 months th e food we bought just didn't last and we didn't have money to get more. Never True 12/09/2023 Purpose - Life Answer Date Recorded Purpose [...] Office Visit [facility] [address] [facility] [place] [address] Ken Manzo MD [address] [facility] [place] [address] [place] [address] documented as of this encounter Goals Goal [...] documented as of this encounter Care Teams Slat Basket Maker Relationship Specialty Start Date End Date Riddhi Plata MD PCP - General Family Medicine 12/09/23 documented as of this encounter
--- OUTSIDE RECORDS SUMMARY | 2025-03-25 07:50 | XMS_ITS | Encounter Summary ---
Author Organization [employer] tem Address [facility] [place]-[id number] [address] [place] [address] Care Team Providers Care Garment Form Assembler Name Role Phone Riddhi Plata MD Primary Care Provider [phone] Reason for Visit * Reason Comments Med Refill Encounter Details Date Type Department Care Team (Late st Contact Info) Description 10/27/2024 Refill [facility] [address] [facility]. [address] [place] [address] Moriah Lira PA-C [address] [facility] [address] [place] [address] Class 3 severe obesity due to excess calories with serious comorbidity and body mass index (BMI) of 60.0 to 69.9 in adult (CMS-HCC); History of pulmonary embolism; Malnutrition following gastrointestinal surgery; Postsurgical malabsorption; H/O gastric bypass Social History Tobacco Use Types Packs/Day Years Used Date Smoking Tobacco: Never Smokeless Tobacco: Never Alcohol Use Standard Drinks/Week Comments Not Currently 0 (1 standard drink = 0.6 oz pur e alcohol) social AHC Utilities Answer Date Recorded In the past 12 months has [employer], gas, oil, or water [employer] threatened to shut off services in your [...] Office Visit [facility] [address] [facility]. [address] [place] [address] Kne Manzo MD [address] [facility] [address] [place] [address] documented as of this encounter Goals Goal Patient Goal Type Associated Problems Recent Progress Patient-Stated? Author safe discharge to home General Yes Kate Blanton, RN Note: Evaluation of progress towards goal: safe transition from hospital to home with family support. documented as of this encounter Visit Diagnoses Diagnosis Class 3 severe obesity due to excess calories with serious comorbidity and body mass index (BMI) of 60.0 to 69.9 in adult ([facility]) History of pulmonary embolism Personal history of venous thrombosis and embolism Malnutrition following gastrointestinal surgery Other and unspecified postsurgical nonabsorption Postsurgical malabsorption H/O gastric bypass documented in this encounter Additional Health Concerns Assessment Noted Time PHQ-9 Depression Total Score: 0 04/23/20 24 3:05 PM EDT documented as of this encounter Care Teams Garment Form Assembler Relationship Specialty Start Date End Date Riddhi Plata MD PCP - General Family Medicine 12/09/23 documented as of this encounter
--- OUTSIDE RECORDS SUMMARY | 2025-03-25 07:51 | XMS_ITS | Clinical Summary ---
Author Organization [facility] Address [address] [place] [address] Care Team Providers Care Air Conditioning Sheet Metal Installer Name Role Phone Riddhi Plata MD Primary Care Provider [phone] Allergies Active Allergy Reactions Criticality Noted Date Comments Sumatriptan Unknown,Anaphylaxis High 11/28/2018 IMITREX FOR MIGRAINES Medications albuterol HFA 90 mcg/act inhalerIndication s:Moderate persistent asthma without complication (HCC) Inhale 2 puffs every 4 (four) hours if needed for shortness of breath 18 g 3 02/01/20 24 Active busPIRone (Buspar) 15 MG tabletIndications :Anxiety Take 1 tablet (15 mg) by mouth in the morning and 1 tablet (15 mg) before bedtime. 200 tablet 3 02/01/20 24 Active citalopram (CeleXA) 20 MG tabletIndications :Anxiety Take 1 tablet (20 mg) by mouth in the morning. 100 tablet 3 02/01/20 24 Active omeprazole (PriLOSEC) [address] capsuleIndication s:Gastroesophagea l reflux disease without esophagitis TAKE 1 CAPSULE BY MOUTH DAILY 30 MINUTES BEFORE MORNING MEAL 100 capsule 3 02/01/20 24 Active cyanocobalamin (Vitamin B-12) 1000 MCG/ML injection 07/14/20 24 Active ondansetron ODT (Zofran-ODT) 4 MG disintegrating tabletIndications :, unspecified gestational age ([facility]),Nausea Take 1 tablet (4 mg) by mouth every 6 (six) hours if needed for nausea or vomiting 30 tablet 3 03/20/20 25 025 Active Vit-Fe Fumarate-FA ( Vitamins) 28-0.8 MG tabletIndications :, unspecified gestational age ([facility]),Encount er for supervision of normal first in first trimester ([facility]) Take 1 tablet by mouth Daily 30 tablet 6 03/20/20 25 026 Active D3-50 1.25 MG (97551 UT) capsule 05/30/20 23 025 Discontinued fluticasone (Flonase) 50 MCG/ACT nasal spray 11/12/19 24 025 Discontinued sertraline (Zoloft) 100 MG tablet 025 Discontinued predniSONE (Deltasone) 20 MG tablet 08/20/20 24 025 Discontinued azithromycin (Zithromax) 500 MG tablet 08/20/20 24 025 Discontinued Active Problems Problem Noted Date Diagnosed Date Amnesia 05/17/2023 Disorder of endocrine system 05/17/2023 Frequent headaches 05/17/2023 Irregular periods 05/17/2023 Menorrhagia with regular cycle 05/17/2023 Class 3 severe obesity due t o excess calories with serious comorbidity and body mass index (BMI) of 50.0 to 59.9 in adult 05/17/2023 Nausea and vomiting 05/17/2023 Acute pulmonary embolism 05/17/2023 Single subsegmental pulmonar y embolism without acute cor pulmonale 05/17/2023 Thyroid nodule 05/17/2023 Urinary tract infection without hematuria 2022 LUCIANO on CPAP 02/22/2023 Morbid obesity with body mass index of 60.0-69.9 in adult 01/26/2023 Polycystic ovarian disease 01/26/2023 Primary hypertension 01/26/2023 Pneumonia due to infectious organism 07/30/2022 Family history of thrombosis 03/17/2022 History of pulmonary embolism 03/17/2022 Adjustment disorder with anxiety 11/30/2021 History of diet controlled g estational diabetes mellitus (GDM) 11/30/2021 Family history of diabetes during 11/09 Preeclampsia in period ([facility]) 11/08 Overview (05/17/2023): 11/29/21: Discharged home with Labetalol 600 QID and Procardia 90 XL qd. Pt has appt with Dr. Morales in [place] 11/30/21 for her PP appt. Pt has BP cuff at home already and would like to f/u with [facility] Web Support Engineer 12/09/21: Decreased to Labetalol 600 TID 12/26/21: Decreased to Procardia 90 XL qd. Iron deficiency anemia 12/29/2019 Gastroesophageal reflux disease 12/15/2019 Seasonal allergic rhinitis due to pollen 020 Anxiety 07/07/2019 Anemia 06/26/2019 Depression 06/13/2019 Overview (05/17/2023): Started on Celexa Gestational diabetes mellitus (GDM) ([facility]) Asthma 12/09/2018 Estimated Date of Delivery Comme nts Yes 10/16/2025 Based on last me nstrual period of 01/09/2025 Encounters Date Type Department Care Team Description 03/20/2025 9:00 AM EDT Initial [facility] [address] [place] [address] [place]: 10w0d 03/20/2025 8:30 AM EDT Ancillary Procedure [facility] [address] [place] [address] Missed menses 03/20/2025 Abstract [facility] [address] [place] [address] Bin Morales DO 03/20/2025 Abstract [facility] [address] [place] [address] Bin Morales DO from Last 3 Months Immunizations Immunization Administration Dates Next Due DTaP, Unspecified 01/14/1999, 7,01/17/1996,09/28,03/28/1995 HPV, Quadrivalent 06/08/2009,02/05/2009,12/02/19 09 Hep A, ped/adol, 2 dose 02/08/2012,02/05/2009, Hep B, Adolescent or Pediatric 01/17/1996,1995,03/28/1995 HiB, unspecified 10/23/1996, 6,09/28/1995,03/28 Influenza, injectable, quadr ivalent, preservative free 08/11/2019 Influenza, seasonal, injectable 07/11/2011 MMR 01/14/1999,03/28/1995 Meningococcal MCV4P 12/01/2008 Polio, Unspecified 01/14/1999, 6,09/28/1995,03/28 Tdap 12/01/2008 Family History Medical History Relation Name Comments Diabetes Father Hypertension Father Mental illness Father Cancer Maternal Grandmother Hypertension Mother Diabetes Paternal Grandfather Cancer Paternal Grandmother Relation Name Status Comments Brother 1 Daughter 1 Father Alive Maternal Grandmother Mother Alive Paternal Grandfather Paternal Grandmother Sister 1 Son 1 Social History Tobacco Use Types Packs/Day Years Used Date Smoking Tobacco: Never Smokeless Tobacco: Never Tobacco Cessation:Counseling Given: Not Answered Alcohol Use Standard Drinks/Week Comments Never 0 [...] on file Sexual Orientation Not on file Last Filed Vital Signs Vital Sign Reading Time Taken Comments Blood Pressure 118/70 03/20/2025 9:27 AM EDT Pulse 91 10/10/2024 3:32 PM EST Temperature - - Respiratory Rate 18 10/10/2024 3:32 PM EST Oxygen Saturation 97% 10/10/2024 3:32 PM EST Inhaled Oxygen Concentration - - Weight 103 kg (227 lb) 03/20/2025 9:27 AM EDT Height 154.9 cm (5' 1 ) 10/10/2024 3:32 PM EST Body Mass Index 42.89 10/10/2024 3:32 PM EST Plan of Treatment Upcoming Encounters Date Type Department Care Team (Late st Contact Info) Description 04/20/2025 9:10 AM EDT Routine [facility] [address] [place] [address] Bin Morales, DO [address] [facility] [place] [address] Health Maintenance Due Date Last Done Comments Pap Smear 2015 Influenza Vaccine (#1) 2025 08/11/2019, 2010 Cervical Cancer Screening 06/07/2028 HPV/Cotest 06/07/2028 06/07/2023, 12/11/2017 Goals Goal Patient Goal Type Associated Problems Recent Progress Patient-Stated? Author Help patient manage antidepressant medication Care Plan Patient on antidepressant monitoring plan No Riddhi Plata MD Baseline PHQ-9 Care Plan Baseline PHQ-9 No Riddhi Plata MD Procedures Procedure Name Priority Date/Time Associated Diagnosis Comments POCT URINALYSIS DIPSTICK Routine 03/20/2025 9:06 AM EDT Missed menses POCT , URINE Routine 03/20/2025 9:06 AM EDT Missed menses US OB TRANSVAGINAL Routine 03/20/2025 8: 54 AM EDT Missed menses THINPREP PAP AND HPV MRNA E6/E7 W/RFL HPV 16,18/45 Routine 06/07/2023 4:13 PM EDT Well woman exam with routine gynecological exam from Last 3 Months or Most Recently Relevant to Health Maintenance Results * POCT , urine manually resulted (03/20/2025 9:06 AM EDT) Preg Test, Ur Positive Negative Urine 03/20/2025 9:06 AM EDT us Bin Morales DO POINT OF CARE TEST ENTER/EDIT OR DERABLES Final Result * POCT urinalysis dipstick manually resulted (03/20/2025 [...] - 9 Protein, UA Negative Negative - 1999(20) ++++ mg/dL Urobilinogen, UA 2.0 0.2 - 12 mg/dL Leukocytes, UA Trace Negative - 500+++ Ramo/mcL Nitrite, UA Negative Negative - Positive Urine 03/20/2025 9:06 AM EDT us Bin Morales DO POINT OF CARE TEST ENTER/EDIT OR DERABLES Final Result * US OB transvaginal (03/20/2025 8:54 AM [...] SIGNED BY: Aman Amado MD us Bin Morales DO IMG OB US PROCEDURES Final Resul t * THINPREP PAP AND HPV MRNA E6/E7 W/RFL HPV 16,18/45 (06/07/2023 4:13 PM EDT) us Winter [facility] BLOOD ORDERABLES Final Resul t EXTERNAL LAB from Last 3 Months or Most Recently Relevant to Health Maintenance Additional Health Concerns Active Problems Noted Date Diagnosed Date Patient on antidepressant monitoring plan 2023 Baseline PHQ-9 02/01/2024 Insurance [employer] Care Teams Air Conditioning Sheet Metal Installer Relationship Specialty Start Date End Date Riddhi Plata MD [address] [place] [address] PCP - General Family Medicine 01/16/23
--- OUTSIDE RECORDS SUMMARY | 2025-03-25 07:51 | XMS_ITS | Encounter Summary ---
Author Organization [employer] tem Address [facility] [place]-[id number] [address] [place] [address] Care Team Providers Care Privacy Analyst Name Role Phone Riddhi Plata MD Primary Care Provider [phone] Encounter Details Date Type Department Care Team (Late st Contact Info) Description 06/20/2023 Telephone [facility] [address] [address] Allyssa Carter LPN Social History Tobacco Use Types Packs/Day Years [...] encounter Miscellaneous Notes * Telephone Encounter - Allyssa Carter LPN - 06/20/2023 10:11 AM EDT Per cert LM on SE nurse line stating the ECHO is under re-view, you can still do the peer to peer if you would like, no date + time did they tell me it needed to be completed. Number to call is [phone], Tracking number is [id number]. documented in this encounter Plan of Treatment Upcoming Encounters Date Type Department Care Team (Late st Contact Info) Description 04/23/2025 8:30 AM EDT Office Visit [facility] [address] [facility] [place] [address] Ken Manzo MD [address] [facility] [address] [place] [address] documented as of this encounter Goals Goal [...] documented as of this encounter Care Teams Privacy Analyst Relationship Specialty Start Date End Date Riddhi Plata MD PCP - General Family Medicine 12/09/23 documented as of this encounter
--- OUTSIDE RECORDS SUMMARY | 2025-03-25 07:51 | XMS_ITS | Encounter Summary ---
Author Organization [facility] Address [address] [facility] [place] [address] Care Team Providers Care Line Installer Trolley Name Role Phone Riddhi Plata MD Primary Care Provider [phone] Encounter Details Date Type Department Care Team (Late Contact Info) Description 05/09/2023 Abstract [facility] [address] [place] [address] Winter English PA [address] [place] [address] [address] [place], [place] [address] Social History Tobacco Use Types Packs/Day Years Used Date Smoking Tobacco: Never Tobacco Cessation:Counseling Given: Not Answered Alcohol Use Standard Drinks/Week Comments Never 0 (1 standard drink = 0.6 oz pure alcohol) Caffeine intake: 1-2 cups per day coffee Comments Unknown Sex and Gender Information Value Date Recorded Sex Assigned at Not on file Legal Sex Female 9:44 PM EDT Gender Identity Not on file Sexual Orientation Not on file documented as of this encounter Plan of Treatment Upcoming Encounters Date Type Department Care Team (Late st Contact Info) Description 04/20/2025 9:10 AM EDT Routine [facility] [address] [place] [address] [address] Morales [address] [place], [place] [id number] documented as of this encounter Visit Diagnoses Not on filedocumented in this encounter Care Teams Line Installer Trolley Relationship Specialty Start Date End Date Riddhi Plata MD [address] [place] [address] PCP - General Family Medicine 01/16/23 documented as of this encounter
--- OUTSIDE RECORDS SUMMARY | 2025-03-25 07:51 | XMS_ITS | Encounter Summary ---
Author Organization [facility] Address [address] [facility] [place] [address] Care Team Providers Care Clinical Programmer Name Role Phone Riddhi Plata MD Primary Care Provider [phone] Encounter Details Date Type Department Care Team (Late st Contact Info) Description 03/20/2025 Abstract [facility] [address] [place] [address] [facility] [place], [facility] Social History Tobacco Use Types Packs/Day Years [...] Description 04/20/2025 9:10 AM EDT Routine [facility] [address] [place] [address] [facility] [place], [place] [id number] documented as of this encounter Goals Goal Patient Goal Type Associated Problems Recent Progress Patient-Stated? Author Help patient manage antidepressant medication Care Plan Patient on antidepressant monitoring plan No Riddhi Plata MD Baseline PHQ-9 Care Plan Baseline PHQ-9 No Riddhi Plata MD documented as of this encounter Visit Diagnoses Not on filedocumented in this encounter Additional Health Concerns Active Problems Noted Date Diagnosed Date Patient on antidepressant monitoring plan 2023 Baseline PHQ-9 02/01/2024 documented as of this encounter Care Teams Clinical Programmer Relationship Specialty Start Date End Date Riddhi Plata MD [address] [place] [address] PCP - General Family Medicine 01/16/23 documented as of this encounter
--- OUTSIDE RECORDS SUMMARY | 2025-03-25 07:51 | XMS_ITS | Encounter Summary ---
Author Organization [employer] tem Address [id number] [address] [place] [address] Care Team Providers Care Duplicating Machine Operator Name Role Phone Riddhi Plata MD Primary Care Provider [phone] Encounter Details Date Type Department Care Team (Late st Contact Info) Description 07/19/2023 Telephone [facility] Pulmonary/Sleep Medicine [address] [address] Lyla Butt, LEANDRO Social History Tobacco Use Types Packs/Day Years [...] got money to buy more. Never True 07/14/2023 Within the past 12 months th e food we bought just didn't last and we didn't have money to get more. Never True 07/14/2023 Purpose - Life Answer Date Recorded Purpose and direction in life Unknown Comments No Sex and Gender Information Value Date Recorded Sex Assigned at Female 07/30/2022 9:31 PM EST Legal Sex Female 11:49 AM EDT Gender Identity Female 07/30/2022 9:31 PM EST Sexual Orientation Straight 07/30/2022 9: 31 PM EST documented as of this encounter Miscellaneous Notes * Telephone Encounter - Lyla Butt RN - 07/19/2023 11:18 AM EST Patient called nurse line and stated she is trying to get Bariatric surgery and Dr Manzo needs clearance. House Decorator spoke to nurse Page at Dr Manzo office. Informed of clearance noted on 07-06-23. Page stated surgery/billing person said they have come across issues with insurance companies not approving/denying bariatric surgery. Page agreed to send a clearance for to our office for Dr Vidal to sign to help with insurance. House Decorator spoke to patient and informed on above. Patient agreeable documented in this encounter Plan of Treatment Upcoming Encounters Date Type Department Care Team (Late st Contact Info) Description 04/23/2025 8:30 AM EDT Office Visit [facility] General Surgery-Bariatric [address] [facility] [place] [address] Ken Manzo MD [address] [address] documented as of this encounter Goals Goal [...] documented as of this encounter Care Teams Duplicating Machine Operator Relationship Specialty Start Date End Date Riddhi Plata MD PCP - General Family Medicine 12/09/23 documented as of this encounter
--- OUTSIDE RECORDS SUMMARY | 2025-03-25 07:51 | XMS_ITS | Encounter Summary ---
Author Organization [facility] Address [address] [place] [address] Care Team Providers Care Heading And Priming Operator Name Role Phone Riddhi Plata MD Primary Care Provider [phone] Encounter Details Date Type Department Care Team (Late Contact Info) Description 05/18/2023 Abstract [facility] [address] [place] [phone] Riddhi Plata MD [address] [place], [place] [id number] Social History Tobacco Use Types Packs/Day Years [...] AM EDT Routine [facility] [address] [place] [address] Bin Morales DO [address] [place] [address] documented as of this encounter Visit Diagnoses Not on filedocumented in this encounter Care Teams Heading And Priming Operator Relationship Specialty Start Date End Date Riddhi Plata MD [address] [place] [address] PCP - General Family Medicine 01/16/23 documented as of this encounter
--- OUTSIDE RECORDS SUMMARY | 2025-03-25 07:51 | XMS_ITS | Encounter Summary ---
Author Organization [employer] Address [id number] [address] [place] [address] Care Team Providers Care General Internist And Physician Leader Name Role Phone Riddhi Plata MD Primary Care Provider [phone] Encounter Details Date Type Department Care Team (Late st Contact Info) Description 07/26/2023 Telephone [facility] Cardiology [address] [place] [address] Tal Nunez MD [address] [place], [place] [id number] Social History Tobacco Use Types Packs/Day Years [...] encounter Miscellaneous Notes * Telephone Encounter - Winter Zhang - 07/26/2023 8:12 AM EST This is notification that we have received a referral for the patient. Please reach out to schedulenew patient appointment in your office. Please check the referral tab in appt desk for details and to make sure to assign referral or schedule off of it. Thank you. documented in this encounter Plan of Treatment Upcoming Encounters Date Type Department Care Team (Late st Contact Info) Description 04/23/2025 8:30 AM EDT Office Visit [facility] General Surgery-Bariatric [address] [facility] [place] [address] Ken Manzo MD [address] [facility] [address] [place] [address] documented as of this encounter Goals Goal Patient Goal Type Associated Problems Recent Progress Patient-Stated? Author safe discharge to home General Yes Kate Blanton RN Note: Evaluation of progress towards goal: safe transition from hospital to home with family support. documented as of this encounter Visit Diagnoses Not on filedocumented in this encounter Additional Health Concerns Assessment Noted Time PHQ-9 Depression Total Score: 0 12/25/19 19 1:00 PM EDT documented as of this encounter Care Teams General Internist And Physician Leader Relationship Specialty Start Date End Date Riddhi Plata MD PCP - General Family Medicine 12/09/23 documented as of this encounter
--- OUTSIDE RECORDS SUMMARY | 2025-03-25 07:51 | XMS_ITS | Encounter Summary ---
Author Organization [employer] tem Address [facility] [id number] [address] [place] [address] Care Team Providers Care Regional Facilities Manager Name Role Phone Riddhi Plata MD Primary Care Provider [phone] Encounter Details Date Type Department Care Team (Late st Contact Info) Description 07/06/2023 Telephone [facility] Pulmonary/Sleep Medicine [address] [address] Lyla Butt RN Social History Tobacco Use Types Packs/Day Years [...] Telephone Encounter - Lyla Butt RN - 07/06/2023 10:36 AM EDT Commercial Airplane Pilot spoke to patient and informed per Dr Vidal, ECHO reviewed. Overall right ventricle and function appeared normal. It is noted that they could not estimate the RVSP to compare to prior imaging.Patient is cleared for surgery with low risk of post operative pulmonary complication. Patient agreeable ----- Message from Jalyn Vidal DO sent at 07/06/2023 7:52 AM EDT ----- Overall right ventricle and function appeared normal. It is noted that they could not estimate the RVSP to compare to her prior imaging. Patient is cleared for surgery with low risk of post operativepulmonary complication. Please see office note in Sept documented in this encounter Plan of Treatment Upcoming Encounters Date Type Department Care Team (Late st Contact Info) Description 04/23/2025 8:30 AM EDT Office Visit [facility] General Surgery-Bariatric [address] [facility] [place] [address] Ken Manzo MD [address] [address] documented as of this encounter Goals Goal [...] documented as of this encounter Care Teams Regional Facilities Manager Relationship Specialty Start Date End Date Riddhi Plata MD PCP - General Family Medicine 12/09/23 documented as of this encounter
--- OUTSIDE RECORDS SUMMARY | 2025-03-25 07:51 | XMS_ITS | Encounter Summary ---
Author Organization [facility] tem Address [id number] [address] [place] [address] Care Team Providers Care Information Officer Name Role Phone Riddhi Plata MD Primary Care Provider [phone] Encounter Details Date Type Department Care Team (Late st Contact Info) Description 09/14/2020 Orders Only [facility] General Surgery [address] [facility] [place] [address] Aman Tang MD [address] [facility], [facility] [address] [place] [address] Social History Tobacco Use Types Packs/Day Years [...] Office Visit [facility] General Surgery-Bariatric [address] [facility] [place] [phone] Ken Manzo MD [address] [facility] [place] [address] [place] [address] documented as of this encounter Procedures Procedure Name Priority Date/Time Associated Diagnosis Comments SURGICAL PATHOLOGY Routine 09/14/2020 4:02 PM EST documented in this encounter Results * Surgical Pathology (09/14/2020 4:02 PM EST) us Aman Tang MD PATHOLOGY/CYTOLOGY ORDERABLES [...] documented as of this encounter Care Teams Information Officer Relationship Specialty Start Date End Date Riddhi Plata MD PCP - General Family Medicine 12/09/23 documented as of this encounter
--- OUTSIDE RECORDS SUMMARY | 2025-03-25 07:51 | XMS_ITS | Encounter Summary ---
Author Organization [facility] Address [address] [place] [address] Care Team Providers Care Treasury Agent Name Role Phone Riddhi Plata MD Primary Care Provider [phone] Reason for Visit * Reason Comments Med Refill Encounter Details Date Type Department Care Team (Late st Contact Info) Description 01/29/2023 Refill [facility] [address] [place] [address] Riddhi Plata MD [address] [place], [place] [id number] Gastroesophageal reflux disease without esophagitis (Primary Dx); Anxiety Social History Tobacco Use Types Packs/Day Years Used Date Smoking Tobacco: Never Assessed Comments Unknown Sex and Gender Information Value Date Recorded Sex Assigned at Not on file Legal Sex Female 9:44 PM EDT Gender Identity Not on file Sexual Orientation Not on file documented as of this encounter Miscellaneous Notes * Telephone Encounter - Yolanda Castillo - 02/14/2023 11:18 AM EDT This message keeps coming from Summer back to me. Not sure if theres anything I am to do? Okay to close? * Telephone Encounter - Marce Tuttle NP - 02/08/2023 6:46 AM EDT Can you please help with this? * Telephone Encounter - Yolanda Castillo - 02/07/2023 1:14 PM EDT Pt is asking if referral for sleep study put in? No one has contacted her and its been about 2 weeks. * Telephone Encounter - Riddhi Plata MD - 01/29/2023 12:14 PM EDT Approving, but needs appt for additional refills. documented in this encounter Plan of Treatment Upcoming Encounters Date Type Department Care Team (Late st Contact Info) Description 04/20/2025 9:10 AM EDT Routine [facility] [address] [facility] [place] [address] Bin Morales, DO [address] [facility] [address] [place], [place] [id number] documented as of this encounter Visit Diagnoses Diagnosis Gastroesophageal reflux disease without esophagitis- Primary Esophageal reflux Anxiety Anxiety state, unspecified documented in this encounter Care Teams Treasury Agent Relationship Specialty Start Date End Date Riddhi Plata MD [address] [place] [address] PCP - General Family Medicine 01/16/23 documented as of this encounter
--- OUTSIDE RECORDS SUMMARY | 2025-03-25 07:51 | XMS_ITS | Encounter Summary ---
Author Organization [facility] Address [address] [facility] [place] [address] Care Team Providers Care Faculty Member Name Role Phone Riddhi Plata MD Primary Care Provider [phone] Encounter Details Date Type Department Care Team (Late st Contact Info) Description 03/20/2025 Abstract [facility] OB [address] [place] [address] Bin Morales [facility] [place], [facility] Social History Tobacco Use Types Packs/Day Years [...] Description 04/20/2025 9:10 AM EDT Routine [facility] [address] [place] [address] Bin Morales [facility] [address] [place], [place] [id number] documented as of this encounter Goals Goal [...] documented as of this encounter Care Teams Faculty Member Relationship Specialty Start Date End Date Riddhi Plata MD [address] [place] [address] PCP - General Family Medicine 01/16/23 documented as of this encounter
--- OUTSIDE RECORDS SUMMARY | 2025-03-25 07:51 | XMS_ITS | Encounter Summary ---
Author Organization [employer] tem Address [id number] [address] [place] [address] Care Team Providers Care Splitter Tender Name Role Phone Riddhi Plata MD Primary Care Provider [phone] Encounter Details Date Type Department Care Team (Late st Contact Info) Description 06/08/2023 Telephone [facility] Pulmonary/Sleep Medicine [address] [address] Lyla Butt RN Social History [...] Telephone Encounter - Lyla Butt RN - 06/08/2023 10:11 AM EDT Valorie at pre-cert, called nurse line and left message. Valorie stated a P2P needs to be done for ECHOd/t ASTRID stating not medically necessary d/t no documentation stating patient having chest pain or any breathing/heart problems. Sawmill Worker returned call and spoke with Fuentes. Informed in Dr Vidal's office note states, Given history of previous pulmonary emboli and isolated impaired DLCO, will obtain echocardiogram to re-evaluate right ventricular systolic pressure and exclude pulmonary hypertension. Fuentes spoke to Valorie and was informed Office note, PFT report and ECHO from 2018. Informed there was a ECHO completed 12-01-21 at [facility]. Fuentes stated, Valorie will refax everything including ECHO from 2021. Fuentes statedwill contact patient and re-schedule ECHO until approval can be obtained. Have 5 business days to perform P2P. Needs to be completed by end of business on 06-13-23 or will bedenied. ASTRID [phone] Ref #[id number] documented in this encounter Plan of Treatment Upcoming Encounters Date Type Department Care Team (Late st Contact Info) Description 04/23/2025 8:30 AM EDT Office Visit [facility] General Surgery-Bariatric [address] [facility] [place] [address] Ken Manzo MD [address] [facility] [address] [place] [address] documented as of this encounter Goals Goal Patient Goal Type Associated Problems Recent Progress Patient-Stated? Author safe discharge to home General Yes Kate Blanton, LEANDRO Note: Evaluation of progress towards goal: safe transition from hospital to home with family support. documented as of this encounter Visit Diagnoses Not on filedocumented in this encounter Additional Health Concerns Assessment Noted Time PHQ-9 Depression Total Score: 0 12/25/19 19 1:00 PM EDT documented as of this encounter Care Teams Splitter Tender Relationship Specialty Start Date End Date Riddhi Plata MD PCP - General Family Medicine 12/09/23 documented as of this encounter
--- OUTSIDE RECORDS SUMMARY | 2025-03-25 08:05 | XMS_ITS | CCD ---
Author Organization [facility] Care Team Providers Care Retrimmer Name Role Phone PHYSICIAN, DEFAULT Admitting Unavailable PHYSICIAN, DEFAULT Attending Unavailable Unavailable Primary Care Provider UnavailDUARTE Rutherford Attending Unavailable JADIELTONIA Attending Unavailable GIORGI, ZAINULABEDIN Admitting Unavailable GIORGI, ZAINULABEDIN Attending Unavailable DAVE ROBERTS Consulting Unavailable RITA DE LA ROSA Consulting Unavailable MAURICIO, ISIDRO ABURTO Consulting Un available MAURICIO, ISIDRO ABURTO Attending Un available MAURICIO, ISIDRO ABURTO Admitting Un available CARMEN ., DR ROTH Primary Care Unavailable CARMEN ., DR ROTH Attending Unavailable CARMEN ., DR ROTH Admitting Unavailable KARASIK ., DR MIR Consulting Unavailabl e CARMEN ., DR ROTH Primary Care Unavailable CARMEN ., DR ROTH Attending Unavailable CARMEN ., DR ROTH Admitting Unavailable CARMEN ., DR ROTH Consulting Unavailable CARMEN ., DR ROTH Procedure Practitioner Unavail able CARMEN ., DR ROTH Consulting Unavailable CARMEN ., DR ROTH Attending Unavailable CARMEN ., DR ROTH Admitting Unavailable CARMEN ., DR ROTH Primary Care Unavailable CARMEN ., DR ROTH Consulting Unavailable BONI, DR LOPEZ Primary Care Unavailable CARMEN ., DR ROTH Attending Unavailable CARMEN ., DR ROTH Admitting Unavailable HERNÁNDEZIMELDA OLIVO Consulting Unavailable CARMEN ., DR ROTH Consulting Unavailable BONI, DR LOPEZ Primary Care Unavailable CARMEN ., DR ROTH Attending Unavailable CARMEN ., DR ROTH Admitting Unavailable SCAR PEGUERO Consulting Unavailable SERGIO ALONSO Consulting Unavailable CARMEN ., DR ROTH Primary Care Unavailable CARMEN ., DR ROTH Attending Unavailable CARMEN ., DR ROTH Admitting Unavailable CARMEN ., DR ROTH Primary Care Unavailable CARMEN ., DR ROTH Attending Unavailable CARMEN ., DR ROTH Admitting Unavailable WEST, DR ASHLEY Weir Consulting Unavailable BONI, DR LOPEZ Primary Care Unavailable CARMEN ., DR ROTH Attending Unavailable CARMEN ., DR ROTH Admitting Unavailable CARMEN ., DR ROTH Consulting Unavailable WEST, DR ASHLEY Weir Consulting Unavailable CARMEN ., DR ROTH Primary Care Unavailable CARMEN ., DR ROTH Attending Unavailable CARMEN ., DR ROTH Admitting Unavailable CARMEN ., DR ROTH Consulting Unavailable CARMEN ., DR ROTH Consulting Unavailable CARMEN ., DR ROTH Primary Care Unavailable CARMEN ., DR ROTH Attending Unavailable CARMEN ., DR ROTH Admitting Unavailable JALYN VIDAL Attending Unavailable BONI, RIDDHI F Referring Unavailable BONI, RIDDHI F Primary Care Unavailable Boni GUERRERO, [facility] Primary Care Provider [phone] Boni GUERRERO, [facility] Primary Care Provider Boni GUERRERO, [facility] Primary Care Provider Boni GUERRERO, [facility] Primary Care Provider Boni GUERRERO, [facility] Primary Care Provider LES DIANE Attending Unavailable BONI, RIDDHI F Referring Unavailable BONI, RIDDHI F Primary Care Unavailable LES DIANE Attending Unavailable BONI, RIDDHI F Referring Unavailable BONI, RIDDHI F Primary Care Unavailable TONIA MANZO Attending Unavailable BONI, RIDDHI F Referring Unavailable BONI, RIDDHI F Primary Care Unavailable TONIA MANZO Referring Unavailable BONI, RIDDHI F Primary Care Unavailable TONIA MANZO Referring Unavailable OBNI, RIDDHI F Primary Care Unavailable BONI, RIDDHI F Referring Unavailable BONI, RIDDHI F Primary Care Unavailable TONIA MANZO Attending Unavailable TONIA MANZO Referring Unavailable BONI, RIDDHI F Primary Care Unavailable TONIA MANZO Admitting Unavailable TONIA MANZO Attending Unavailable BONI, RIDDHI F Primary Care Unavailable BONI, RIDDHI F Primary Care Unavailable TONIA MANZO Attending Unavailable BONI, RIDDHI F Referring Unavailable BONI, RIDDHI F Primary Care Unavailable LES DIANE Attending Unavailable BONI, RIDDHI F Referring Unavailable BONI, RIDDHI F Primary Care Unavailable TONIA MANZO Attending Unavailable BONI, RIDDHI Mcdaniel Referring Unavailable BONI, RIDDHI Mcdaniel Primary Care Unavailable LES DIANE Attending Unavailable BONI, RIDDHI Mcdaniel Referring Unavailable BONI, RIDDHI Mcdaniel Primary Care Unavailable BONI, RIDDHI Mcdaniel Referring Unavailable BONI, RIDDHI Mcdaniel Primary Care Unavailable MORIAH GUTHRIE Attending Unavailable BONI, RIDDHI Mcdaniel Referring Unavailable BONI, RIDDHI Mcdaniel Primary Care Unavailable MAY DUNLAP Referring Unavailable BONI, RIDDHI Mcdaniel Primary Care Unavailable BONI, RIDDHI Mcdaniel Primary Care Unavailable TONIA MANZO Referring Unavailable BONI, RIDDHI Mcdaniel Primary Care Unavailable OSIRIS VENEGAS Attending Unavailable BONI, RIDDHI Mcdaniel Referring Unavailable BONI, RIDDHI Mcdaniel Primary Care Unavailable BONI, RIDDHI Mcdaniel Attending Unavailable BONI, RIDDHI Mcdaniel Attending Unavailable BONI, RIDDHI Mcdaniel Attending Unavailable Allergies Allergy Classification Reported Allergen(s) Allergy Type Date of Onset Reaction(s) Facility (4 sources) [facility] Allergy 11-29-[address] [facility] [employer] (20 sources) SUMAtriptan; Translations: [SUMATRIPTAN] Drug Allergy 11-28-2018 Anaphylaxis, Unknown, Other (See Comments) [employer] Work Phone: Medications Current Medications Medication Drug Class(es) Dates Sig (Normalized) Sig (Original) acetaminophen 325 mg / oxyCODONE hydrochloride 5 mg oral tablet (7 sources) Opioid Agonist Start: 04-24-2024 End: 05-01-2024 oxyCODONE-acetamin ophen (PERCOCET) 5-325 mg per tablet Indications: Acute post-operative pain Take 1 tablet by mouth every 6 (six) hours as needed for pain for up to 7 days. Max Daily Amount: 4 tablets 15 tablet 04/24/2024 05/01/2024 Active Start: 04-23-2024 End: 04-24-2024 take 2 tablets by mouth every four hours as needed for pain 2 tablet, oral, Every 4 hours PRN, sever e pain - pain scale 7-10, Starting on Sun04/23/24 at 1412, Look-alike/sound-alike medication - verify indication for use. azithromycin 500 mg oral tablet (6 sources) Macrolide Antimicrobial Start: 08-20-2024 End: 03-20-2025 azithromycin (Zithromax) 500 MG tablet 08/20/2024 03/20/2025 Discontinued busPIRone hydrochloride 15 mg oral tablet (20 sources) Start: 07-04-2023 End: 01-31-2025 take 1 tablet by mouth in the morning busPIRone (Buspar) 15 MG tablet Indications: Anxiety Take 1 tablet (15 mg) by mouth in the morning and 1 tablet (15 mg) before bedtime. 200 tablet 3 02/01/2024 Active Start: 07-04-2023 End: 07-03-2024 take 50 mg by mouth in the morning buspirone HCl (BUSPIRONE ORAL) Take 50 mg by mouth in the morning and 50 mg before bedtime. 07/04/2023 07/03/2024 Start: 07-04-2023 End: 07-03-2024 take 50 mg by mouth in the morning buspirone HCl (BUSPIRONE ORAL) Take 50 mg by mouth in the morning and 50 mg before bedtime. 07/04/2023 07/03/2024 Active Start: 07-04-2023 End: 07-03-2024 take 50 mg by mouth in the morning buspirone HCl (BUSPIRONE ORAL) Take 50 mg by mouth in the morning and 50 mg before bedtime. 0 07/04/2023 07/03/2024 Active calcium carbonate 500 mg chewable tablet (1 source) Start: 11-26-2021 calcium carbon ate (TUMS) chewable tablet 1,000 mg 10 ml calcium gluconate 100 mg/ml injection (1 source) Start: 11-25-2021 calcium glucon ate 10 % injection 1,000 mg cefuroxime 500 mg oral tablet (2 sources) Cephalosporin Antibacterial Start: 08-25-2024 End: 09-08-2024 take 1 tablet by mouth in the morning cefuroxime (Ceftin) 500 MG tablet Indications: Non-recurrent acute serous otitis media of left ear Take 1 tablet (500 mg) by mouth in the morning and 1 tablet (500 mg) before bedtime. Do all this for 14 days. 28 tablet 08/25/2024 09/08/2024 Active cephalexin 500 mg oral capsule (2 sources) Cephalosporin Antibacterial Start: 06-12-2024 End: 06-19-2024 take 1 capsule by mouth in the morning, then take 1 capsule by mouth in the evening, then take 1 capsule by mouth at bedtime cephalexin (Keflex) 500 MG capsule Indications: Acute cystitis with hematuria Take 1 capsule (500 mg) by mouth in the morning and 1 capsule (500 mg) in the evening and 1 capsule (500 mg) before bedtime. Do all this for 7 days. 21 capsule 06/12/2024 06/19/2024 Active citalopram 20 mg oral tablet (20 sources) Serotonin Reuptake Inhibitor Start: 02-01-2024 End: 01-31-2025 take 1 tablet by mouth in the morning citalopram (CeleXA) 20 MG tablet Indications: Anxiety Take 1 tablet (20 mg) by mouth in the morning. 100 tablet 3 02/01/2024 Active Start: 11-27-2021 take 1 tablet by lora th once daily citalopram (CELEXA) 10 MG tablet Take 1 tablet by mouth daily 30 tablet 3 11/27/2021 Active diphenhydrAMINE hydrochloride 25 mg oral tablet (2 sources) Histamine-1 Receptor Antagonist Start: 11-26-2021 diphenhydrAMINE (BENADRYL) tablet 25 mg 0.4 ml enoxaparin sodium 100 mg/ml prefilled syringe (7 sources) Low Molecular Weight Heparin Start: 04-25-2024 End: 04-24-2024 inject 0.4 mL by subcutaneous injection once enoxaparin (LOVENOX) 40 mg/0.4 mL syringe Indications: Class 3 severe obesity due to excess calories with serious comorbidity and body mass index (BMI) of 60.0 to 69.9 in adult ([facility]) , History of pulmonary embolism Inject 0.4 mL (40 mg total) under the skin Every 12 (twelve) hours for 14 days. 11.2 mL 04/25/2024 04/24/2024 Discontinued Start: 04-24-2024 End: 05-08-2024 inject 0.4 mL by subcutaneous injection once enoxaparin (LOVENOX) 40 mg/0.4 mL syringe Indications: Class 3 severe obesity due to excess calories with serious comorbidity and body mass index (BMI) of 60.0 to 69.9 in adult ([facility]) , History of pulmonary embolism Inject 0.4 mL (40 mg total) under the skin Every 12 (twelve) hours for 14 days. 11.2 mL 04/24/2024 05/08/2024 Active Start: 04-24-2024 End: 04-24-2024 40 mg, subcutaneous, Every 1 2 hours scheduled, First dose on Belkis 04/24/24 at 0600, BMI greater than 40 Look-alike/sound-alike medication - verify indication for use. ethinyl estradiol 0.035 mg / norgestimate 0.25 mg oral tablet (2 sources) Progestin, Estrogen take 1 tablet by mouth once daily, then take 0.25-35 tablets by mouth once norgestimate-ethinyl estradiol (ORTHO-CYCLEN) 0.25-35 MG-MCG per tablet Take 1 tablet by mouth daily 0 Active fluticasone propionate 0.05 mg/actuat metered dose nasal spray (10 sources) Corticosteroid Start : 11-11 End: 03-20 fluticasone (Flonase) 50 MCG/ACT nasal spray 11/12/2023 03/20/2025 Discontinued hydrOXYzine hydrochloride 25 mg oral tablet (2 sources) Antihistamine Start : 11-26 hydrOXYzine (ATARAX) tablet 25 mg magnesium oxide 400 mg oral tablet (2 sources) Start : 08-25 take 1 tablet by mouth once daily magnesium oxide (MAG-OX) 400 MG tablet TAKE 1 TABLET BY MOUTH EVERY DAY 0 08/25/2021 Active 100 ml magnesium sulfate 10 mg/ml injection (5 sources) Start : 11-30 take 1000 mg intravenously every hour as needed 1,000 mg, IntraVENous, at 100 mL/hr, Administer over 1 Hours, PRN, Other, Per IV Magnesium Replacement Protocol, Starting on Sun11/30/21 at 2358 Mg Lab &nbs p;Replacement Action 1.4-1.6 1 gram IVPB x 2 doses &n bsp; &nb sp; &nbs p; &nbsp ; (2 gram Total) 1.0-1.3 1 gram IVPB x 4 doses &n bsp; &nb sp; &nbs p; &nbsp ; (4 gram Total) <1.0 &nb sp; &nbs p; CALL PHYSICIAN and & nbsp; &n bsp; &nb sp; &nbs p;1 gram IVPB x 4 doses & nbsp; (4 gram Total) Infuse at 1 gram/hr Repeat Mag level next AM Protocol not for use in Patients with CrCl<30ml/min Start: 11-26-2021 End: 11-26-2021 magnesium sulfate (35356 mg/ 500mL infusion) Start: 11-25-2021 End: 11-27-2021 magnesium sulfate 2000 mg in 50 mL IVPB premix melatonin 5 mg oral tablet (1 source) Start: 11-28-2021 melatonin tabl et 5 mg NIFEdipine 90 mg osmotic 24 hr extended release oral tablet (10 sources) Dihydropyridine Calcium Channel Sally Start: 11-28-2021 take 1 tablet by mouth once daily NIFEdipine (PROCARDIA XL) 90 MG extended release tablet Take 1 tablet by mouth daily 30 tablet 3 11/28/2021 Active Start: 11-28-2021 End: 11-28-2021 take 1 tablet by mouth once daily NIFEdipine (PROCARDIA XL) 60 MG extended release tablet Take 1 tablet by mouth daily 30 tablet 3 11/28/2021 11/28/2021 Discontinued (Stop Taking at Discharge) Start: 11-28-2021 NIFEdipine (IL OCARDIA XL) extended release tablet 90 mg Start: 11-26-2021 End: 11-28-2021 NIFEdipine (PROCARDIA XL) ex tended release tablet 30 mg omeprazole 40 mg delayed release oral capsule (20 sources) Proton Pump Inhibitor Start: 04-24-2024 take 1 capsule by mouth once daily before breakfast omeprazole (PriLOSEC) 40 mg capsule Take 1 capsule (40 mg total) by mouth every morning before breakfast. 90 capsule 04/24/2024 Active Start: 2020 End: 04-24-2024 omeprazole (PriLOSEC) [address] capsule Indications: Gastroesophageal reflux disease without esophagitis TAKE 1 CAPSULE BY MOUTH DAILY 30 MINUTES BEFORE MORNING MEAL 100 capsule 3 02/01/2024 Active ondansetron 4 mg disintegrating oral tablet (15 sources) Serotonin-3 Receptor Antagonist Start: 03-20-2025 End: 04-19-2025 take 1 tablet by mouth every six hours for nausea ondansetron ODT (Zofran-ODT) 4 MG disintegrating tablet Indications: , unspecified gestational age ([facility]) , Nausea Take 1 tablet (4 mg) by mouth every 6 (six) hours if needed for nausea or vomiting 30 tablet 3 03/20/2025 04/19/2025 Active Start: 04-24-2024 End: 01-01-2025 take 1 tablet by mouth every six hours as needed for nausea and vomiting ondansetron ODT (ZOFRAN ODT) 4 mg disintegrating tablet Dissolve 1 tablet (4 mg total) on tongue every 6 (six) hours as needed for nausea or vomiting. 20 tablet 1 04/24/2024 01/01/2025 Discontinued Start: 04-23-2024 End: 04-24-2024 take 4 mg intravenously every four hours as needed for nausea and vomiting Start: 11-30-2021 End: 11-30-2021 ondansetron (ZOFRAN) injecti on 4 mg Start: 11-26-2021 End: 11-26-2021 ondansetron (ZOFRAN-ODT) disintegrating tablet 4 mg Start: 10-25-2021 ondansetron (Z OFRAN-ODT) 4 MG disintegrating tablet DISSOLVE 1 TABLET EVERY 6 HOURS NEEDED FOR NAUSEA AND VOMITING 0 10/25/2021 Active ondansetron (ZOFRAN-ODT) disintegrating tablet 4 mg (1 source) Start: 11-30-2021 ondansetron (ZOFRAN-ODT) disintegrating tablet 4 mg oseltamivir 75 mg oral capsule (2 sources) Neuraminidase Inhibitor Start: 10-10-2024 End: 10-15-2024 take 1 capsule by mouth in the morning oseltamivir (Tamiflu) 75 MG capsule Indications: Influenza A Take 1 capsule (75 mg) by mouth in the morning and 1 capsule (75 mg) before bedtime. Do all this for 5 days. 10 capsule 10/10/2024 10/15/2024 Active Potassium Chloride (1 source) Start: 11-30-2021 potassium chloride (KLOR-CON M) extended release tablet 40 mEq predniSONE 20 mg oral tablet (6 sources) Start: 08-20-2024 End: 03-20-2025 predniSONE (Deltasone) 20 MG tablet 08/20/2024 03/20/2025 Discontinued Vit-Fe Fumarate-FA ( Vitamins) 28-0.8 MG tablet (1 source) Start: 03-20-2025 End: 03-20-2026 take 1 tablet by mouth once daily Vit-Fe Fumarate-FA ( Vitamins) 28-0.8 MG tablet Indications: , unspecified gestational age ([facility]) , Encounter for supervision of normal first in first trimester ([facility]) Take 1 tablet by mouth Daily 30 tablet 6 03/20/2025 03/20/2026 Active vitamin plus iron 29-1 MG tablet 1 tablet (1 source) Start: 11-26-2021 vitamin plus iron 29-1 MG tablet 1 tablet rivaroxaban (3 sources) Factor Xa Inhibitor Start: 12-01-2021 End: 12-22-2021 rivaroxaban (XARELTO) tablet 15 mg Start: 12-01-2021 rivaroxaban 15 & 20 MG Starter Pack Take as directed on package. 1 each 0 12/01/2021 Active 72 hr scopolamine 0.0139 mg/hr transdermal system (1 source) Anticholinergic Start: 03-27-2024 End: 03-27-2024 apply 1 dose transdermal route once daily scopolamine (TRANSDERM-SCOP) 1 mg/3 days Indications: PONV (postoperative nausea and vomiting) Place 1 patch on the skin once for [address] behind ear night before surgery. Wash hands immediately after applying. 1 patch 03/27/2024 03/27/2024 Active sertraline 100 mg oral tablet (12 sources) Serotonin Reuptake Inhibitor End: 03-20-2025 sertraline (Zoloft) 100 MG tablet 03/20/2025 Discontinued End: 11-27-2021 take 1 tablet by mouth once daily sertraline (ZOLOFT) 50 MG tablet Take 50 mg by mouth daily 0 11/27/2021 Discontinued (Stop Taking at Discharge) syringe with needle (BD LUER-KARENA SYRINGE) 3 mL 25 x 1 1/2 syringe (3 sources) Start: 06-04-2024 syringe with n eedle (BD LUER-KARENA SYRINGE) 3 mL 25 x 1 1/2 syringe Indications: Malnutrition following gastrointestinal surgery , Postsurgical malabsorption , H/O gastric bypass 1 SYRG by miscellaneous route every 30 (thirty) days. 3 each 06/04/2024 Active Completed/Discontinued Medications Medication Drug Class(es) Dates Sig (Normalized) Sig (Original) acetaminophen 500 mg oral tablet (4 sources) Start: 04-23-2024 End: 04-23-2024 take 1000 mg by mouth once 1,000 mg, oral, Once, On Sun04/23/24 at 0800, For 1 dose, Pre-op Start: 11-30-2021 acetaminophen (TYLENOL) tablet 650 mg Start: 11-25-2021 End: 11-25-2021 acetaminophen (TYLENOL) tabl et 1,000 mg acetaminophen 325 mg / HYDROcodone bitartrate 5 mg oral tablet (1 source) Opioid Agonist Start: 12-05-2021 End: 12-05-2021 HYDROcodone-acetaminophen (NORCO) 5-325 MG per tablet 1 tablet albuterol 0.83 mg/ml inhalation solution (20 sources) beta2-Adren ergic Agonist Start: 04-23-2024 End: 04-24-2024 take 2.5 mg by inhalation every six hours as needed for wheezing and dyspnea Start: 02-01-2024 take 2 puff(s) by in halation every four hours albuterol HFA 90 mcg/act inhaler Indications: Moderate persistent asthma without complication (HCC) Inhale 2 puffs every 4 (four) hours if needed for shortness of breath 18 g 3 02/01/2024 Active Start: 07-28-2022 take 2 puff(s) by in halation every four hours as needed for wheezing albuterol (PROVENTIL HFA;VENTOLIN HFA) 90 mcg/actuation inhaler Indications: Mild intermittent asthma, unspecified whether complicated Inhale 2 puffs every 4 (four) hours as needed for wheezing. 18 g 07/28/2022 Active apixaban 5 mg oral tablet (1 source) Factor Xa Inhibitor Start: 12-01-2021 End: 12-01-2021 apixaban starter pack (ELIQUIS DVT/PE STARTER PACK) 5 MG TBPK tablet Take 1 tablet by mouth See Admin Instructions 74 tablet 0 12/01/2021 12/01/2021 Discontinued (Stop Taking at Discharge) aprepitant 40 mg oral capsule (1 source) Substance P/Neurokinin-1 Receptor Antagonist Start: 04-23-2024 End: 04-23-2024 take 40 mg by mouth once 40 mg, oral, Once, On Sun04/23/24 at 0800, For 1 dose, Pre-op aspirin 325 mg delayed release oral tablet (1 source) Platelet Aggregation Inhibitor, Nonsteroidal Anti-inflammatory Drug Start: 12-01-2021 325 mg, Oral, DAILY, First dose on Belkis 12/01/21 at 0015, Until Discontinued Please give ASA dose upon admission if not done in ER then DAILY calcium chloride 0.0014 meq/ml / potassium chloride 0.004 meq/ml / sodium chloride 0.103 meq/ml / sodium lactate 0.028 meq/ml injectable solution (4 sources) Start: 04-23-2024 End: 04-24-2024 take 100 mL intravenously every hour 100 mL/hr, intravenous, Continuous, Starting on Sun04/23/24 at 1415 Start: 11-26-2021 End: 11-26-2021 IntraVENous, at 125 mL/hr, C ONTINUOUS, Starting on 11/26/21 at 0645 Start: 11-26-2021 End: 11-26-2021 lactated ringers infusion cholecalciferol 1.25 mg oral tablet (20 sources) Vitamin D Start: 03-27-2024 End: 01-01-2025 take 1 tablet by mouth every week cholecalciferol, vitamin D3, 50,000 units tablet Indications: Vitamin D deficiency Take 1 tablet (50,000 Units total) by mouth once a week. 12 tablet 03/27/2024 01/01/2025 Discontinued (Therapy completed) Start: 05-31-2023 End: 09-27-2023 take 1 tablet by mouth two times weekly cholecalciferol, vitamin D3, 50,000 units tablet Indications: Vitamin D deficiency Take 1 tablet (50,000 Units total) by mouth 2 (two) times a week. 24 tablet 0 05/31/2023 09/27/2023 Discontinued Start: 05-30-2023 End: 03-20-2025 D3-50 1.25 MG (07928 UT) cap mimi 05/30/2023 03/20/2025 Discontinued cyclobenzaprine hydrochloride 10 mg oral tablet (10 sources) Muscle Relaxant Start: 12-15-2024 End: 01-01-2025 take 1 tablet by mouth twice daily as needed for muscle spasms cyclobenzaprine (FLEXERIL) 10 mg tablet Take 1 tablet (10 mg total) by mouth 2 (two) times a day as needed for muscle spasms. 10 tablet 12/15/2024 01/01/2025 Discontinued Start: 04-24-2024 End: 01-01-2025 take 1 tablet by mouth three times daily as needed for muscle spasms cyclobenzaprine (FLEXERIL) 10 mg tablet Take 1 tablet (10 mg total) by mouth 3 (three) times a day as needed for muscle spasms. 20 tablet 04/24/2024 01/01/2025 Discontinued docusate sodium 100 mg oral capsule (16 sources) Start: 03-27-2024 End: 01-01-2025 take 1 capsule by mouth in the morning, then take 1 capsule by mouth every week at bedtime docusate sodium (COLACE) 100 mg capsule Indications: Constipation, unspecified constipation type Take 1 capsule (100 mg total) by mouth in the morning and 1 capsule (100 mg total) before bedtime. Start one week prior to surgery and continue two weeks after surgery.. 42 capsule 04/17/2024 01/01/2025 Discontinued 1 ml fentaNYL 0.05 mg/ml injection (1 source) Opioid Agonist Start: 04-23-2024 End: 04-23-2024 50 mcg, intravenous, Every 5 min PRN, Pain Scale 6-10, Starting on Sun04/23/24 at 1058, PACU (only), Up to a maximum dose of 150 mcg. Look-alike/sound-ali ke medication - verify indication for use. ferrous sulfate 325 mg delayed release oral tablet (4 sources) Start: 12-01-2021 take 325 mg by mouth once daily at breakfast 325 mg, Oral, DAILY WITH BREAKFAST, First dose on Belkis 12/01/21 at 0800, Until Discontinued Start: 11-30-2021 take 1 tablet by lora th once daily at breakfast ferrous sulfate (IRON 325) 325 (65 Fe) MG tablet Indications: Iron deficiency anemia secondary to inadequate dietary iron intake Take 1 tablet by mouth daily (with breakfast) 180 tablet 1 11/30/2021 Active Start: 11-26-2021 ferrous sulfat e (FE TABS 325) EC tablet 325 mg glucagon (rdna) 1 mg injecti on (1 source) Antihypoglycemic Agent Start: 04-23-2024 End: 04-24-2024 150 ml glucose 50 mg/ml inje ction (3 sources) Start: 04-23-2024 End: 04-24-2024 Start: 04-23-2024 End: 04-24-2024 Start: 04-23-2024 End: 04-24-2024 1 ml heparin sodium, porcine 5000 unt/ml injection (4 sources) Unfractionated Heparin, Anti-coagulant Start: 04-23-2024 End: 04-23-2024 inject 5000 [IU] by subcutaneous injection once 5,000 Units, subcutaneous, Once, On Sun04/23/24 at 0845, For 1 dose, Look-alike/sound-alike medication - verify indication for use. Observe for bleeding. Start: 11-30-2021 End: 11-30-2021 heparin (porcine) injection 10,000 Units Start: 11-30-2021 End: 12-01-2021 5-30 Units/kg/hr 126.6 kg (6 .33-37.98 mL/hr, rounded to 6.3-38 mL/hr), IntraVENous, CONTINUOUS, Starting on Belkis 12/01/21 at 0015, Until Belkis 12/01/21 at 0837 Initial dose 16.6 units/kg/hr Heparin Weight-Based Infusion: VTE/DVT/PE (Xa Monitoring) Initial dose is 16.6 units/kg/hr. WARNING Patient weight EXCEEDS max initial dose of 2100 units/hr. Please recalculate patient weight based initial dose. Recorded patient weight: 126.6 kg. Start at: 80 units/kg IV bolus x 1 (max 10,000 units), then 18 units/kg/hr (max initial rate 2100 units/hr) = 16.6 units/kg/hr. Adjust infusion rate based on Anti-Xa results (target range 0.3-0.7). For titration purposes, continue to use the initial weight of 126.6 kg for adjustments. Anti-Xa < 0.1 Heparin 80 units/kg (max 10,000 units) bolus, then increase infusion by 4 units/kg/hr Anti-Xa 0.1 - 0.29 Heparin 40 units/kg (max 5,000 units) bolus, then increase infusion by 2 units/kg/hr Anti-Xa 0.3 - 0.7 No bolus No change in rate Anti-Xa 0.71-0.8 No bolus Decrease infusion by 1 units/kg/hr Anti-Xa 0.81 - 0.99 No bolus Decrease infusion by 2 units/kg/hr Anti-Xa 1 unit/mL or greater Hold heparin for 60 min , then decrease infusion by 3 units/kg/hr from previous rate (no bolus for restart) Check Anti-Xa 6 hours after initiation and 6 hours after every dose change. When Anti-Xa is within target range for two consecutive times, check Anti-Xa once daily. *80 units/kg bolus max= 10,000 units *40 units/kg bolus max= 5,000 units (for bolus doses, use patient's current weight) . 1 ml hydrALAZINE hydrochloride 20 mg/ml injection (6 sources) Arteriolar Vasodilator Start: 11-28-2021 End: 11-28-2021 hydrALAZINE (APRESOLINE) injection 10 mg Start: 11-28-2021 End: 11-28-2021 hydrALAZINE (APRESOLINE) inj ection 10 mg Start: 11-28-2021 End: 11-28-2021 hydrALAZINE (APRESOLINE) inj ection 10 mg Start: 11-27-2021 End: 11-27-2021 hydrALAZINE (APRESOLINE) inj ection 10 mg Start: 11-27-2021 End: 11-27-2021 hydrALAZINE (APRESOLINE) 20 MG/ML injection Start: 11-25-2021 End: 11-25-2021 hydrALAZINE (APRESOLINE) inj ection 10 mg hyoscyamine sulfate 0.125 mg disintegrating oral tablet (1 source) Start: 04-23-2024 End: 04-24-2024 take 125 ug under the tongue four times daily 125 mcg, sublingual, 4 times daily, First dose on Sun04/23/24 at 1200 ibuprofen 800 mg oral tablet (4 sources) Nonsteroidal Anti-inflammatory Drug Start: 07-14-2023 End: 09-27-2023 take 1 tablet by mouth every six hours as needed for pain ibuprofen (MOTRIN) 800 mg tablet Take 1 tablet (800 mg total) by mouth every 6 (six) hours as needed for pain. 30 tablet 0 07/14/2023 09/27/2023 Discontinued Start: 11-26-2021 ibuprofen (ADV IL;MOTRIN) tablet 600 mg iopamidol (ISOVUE-370) 76 % injection 75 mL (1 source) Start: 11-30-2021 End: 11-30-2021 iopamidol (ISOVUE-370) 76 % injection 75 mL iopamidol (ISOVUE-370) 76 % injection 85 mL (1 source) Start: 11-26-2021 End: 11-26-2021 iopamidol (ISOVUE-370) 76 % injection 85 mL 1 ml ketorolac tromethamine 15 mg/ml injection (2 sources) Nonsteroidal Anti-inflammatory Drug, Cyclooxygenase Inhibitor Start: 04-23-2024 End: 04-24-2024 take 15 mg intravenously every six hours 15 mg, intravenous, Every 6 hours, First dose on Sun04/23/24 at 1500, For 5 days, Patients 65 years or older or weigh less than 50 kg. Hold for patients 80 or older. Maximum of 20 doses. Look-alike/sound -alike medication - verify indication for use. Duration of therapy is not to exceed 5 days. Maximum recommended dose + 120mg/24 hours. Start: 11-26-2021 End: 11-26-2021 ketorolac (TORADOL) injectio n 30 mg labetalol hydrochloride 200 mg oral tablet (19 sources) beta-Adrenergic Sally Start: 12-01-2021 take 600 mg by mouth four times daily 600 mg, Oral, 4 TIMES DAILY, First dose on Sun12/01/21 at 0015, Until Discontinued Start: 11-28-2021 End: 11-28-2021 take 2 tablets by mouth four times daily labetalol (NORMODYNE) 300 MG tablet Take 2 tablets by mouth 4 times daily 60 tablet 3 11/28/2021 Active Start: 11-27-2021 End: 11-28-2021 labetalol (NORMODYNE) tablet 600 mg Start: 11-27-2021 End: 11-28-2021 take 3 tablets by mouth at bedtime labetalol (NORMODYNE) 200 MG tablet Take 3 tablets by mouth in the morning, at noon, and at bedtime 120 tablet 1 11/27/2021 11/28/2021 Discontinued (REORDER) Start: 11-27-2021 labetalol (NOR MODYNE;TRANDATE) 5 MG/ML injection Start: 11-26-2021 labetalol (NOR MODYNE;TRANDATE) injection 40 mg Start: 11-26-2021 End: 11-27-2021 labetalol (NORMODYNE) tablet 400 mg Start: 11-26-2021 labetalol (NOR MODYNE;TRANDATE) injection 20 mg Start: 11-23-2021 End: 11-27-2021 labetalol (NORMODYNE) 200 MG tablet lidocaine 0.05 mg/mg medicated patch (3 sources) Antiarrhythmic, Amide Local Anesthetic Start: 07-14-2023 End: 09-27-2023 apply 1 dose transdermal route once daily, then apply 1 dose transdermal route every twelve hours lidocaine (LIDODERM) 5 % Place 1 patch on the skin daily. Remove & Discard patch within 12 hours or as directed by 15 patch 0 07/14/2023 09/27/2023 Discontinued lisinopril 10 mg oral tablet (20 sources) Angiotensin Converting Enzyme Inhibitor Start: 04-24-2024 End: 04-24-2024 take 10 mg by mouth once daily 10 mg, oral, Daily, First dose on [facility] 04/24/24 at 0900, Look-alike/sound- alike medication - verify indication for use. Start: 03-04-2024 End: 03-04-2025 take 1 tablet by mouth once daily lisinopril 20 MG tablet Indications: Gastroesophageal reflux disease without esophagitis Take 1 tablet (20 mg) by mouth Daily 100 tablet 3 03/04/2024 06/12/2024 Discontinued (Therapy completed) take 0.5 tablet by m outh in the morning lisinopriL (PRINIVIL,ZESTRIL) 20 mg tablet Take 0.5 tablets (10 mg total) by mouth in the morning. Active take 1 tablet by lora th in the morning lisinopriL (PRINIVIL,ZESTRIL) 20 mg tablet Take 1 tablet (20 mg total) by mouth in the morning. 0 Active take 1 tablet by lora th in the morning lisinopriL (PRINIVIL,ZESTRIL) 10 mg tablet Take 1 tablet (10 mg total) by mouth in the morning. 0 Active magnesium hydroxide 80 mg/ml oral suspension (1 source) Start: 11-30-2021 take 30 mL by mouth once daily as needed 30 mL, Oral, DAILY PRN, Starting on Sun11/30/21 at 2358, Until Discontinued, Constipation First line therapy for constipation. osmotic 24 hr metFORMIN hydrochloride 500 mg extended release oral tablet (3 sources) Biguanide End: 09-27-2023 take 1 tablet by mouth once daily at breakfast metFORMIN (FORTAMET) 500 MG (OSM) 24 hr tablet Take 1 tablet (500 mg total) by mouth daily with breakfast. 0 09/27/2023 Discontinued 1 ml morphine sulfate 4 mg/ml injection (2 sources) Opioid Agonist Start: 04-23-2024 End: 04-24-2024 take 4 mg intravenously every two hours as needed Start: 11-30-2021 End: 11-30-2021 morphine (PF) injection 2 mg nitroglycerin 0.4 mg sublingual tablet (1 source) Nitrate Vasodilator Start: 11-30-2021 0.4 mg, SubLINGual, EVERY 5 MIN PRN, 3 doses, Starting on Sun11/30/21 at 2358, Until Discontinued, Chest pain Place 1 tablet under tongue upon chest pain, wait 5 minutes and may repeat up to 3 doses in 15 minutes. Do not crush or break. 12 hr orphenadrine citrate 100 mg extended release oral tablet (3 sources) Muscle Relaxant Start: 07-14-2023 End: 09-27-2023 take 1 tablet by mouth in the morning, then take 1 tablet by mouth every twelve hours at bedtime orphenadrine (NORFLEX) 100 mg 12 hr tablet Take 1 tablet (100 mg total) by mouth in the morning and 1 tablet (100 mg total) before bedtime. 20 tablet 0 07/14/2023 09/27/2023 Discontinued pantoprazole 40 mg delayed release oral tablet (1 source) Proton Pump Inhibitor Start: 04-23-2024 End: 04-24-2024 40 mg, oral, Daily, First dose on Sun04/23/24 at 1500, Look-alike/sound-al derek medication - verify indication for use. If patient is receiving enteral feeding, consider alternative PPI or continue IV pantoprazole until the delayed-release tablet can be taken orally, Indication: GERD vit 10-iron fum-folic 65-1 mg tablet (3 sources) Start: 02-22-2023 End: 09-27-2023 take 1 tablet by mouth in the morning vit 10-iron fum-folic 65-1 mg tablet Indications: Morbid obesity (CMS-HCC) , Preop testing Take 1 tablet by mouth in the morning. 90 tablet 3 02/22/2023 09/27/2023 Discontinued Start: 02-22-2023 take 1 tablet by lora th in the morning vit 10-iron fum-folic 65-1 mg tablet Indications: Morbid obesity (CMS-HCC) , Preop testing Take 1 tablet by mouth in the morning. 90 tablet 3 02/22/2023 Active prochlorperazine 5 mg/ml injectable solution (1 source) Phenothiazine Start: 04-23-2024 End: 04-24-2024 take 5 mg intravenously every six hours as needed for nausea and vomiting 5 ml sodium chloride 9 mg/ml injection (9 sources) Start: 12-01-2021 take 1 dose intravenously twice daily 5-40 mL, IntraVENous, EVERY 12 HOURS SCHEDULED (2 times per day), First dose on Sun12/01/21 at 0900, Until Discontinued For Line Patency: Peripheral IV = 5 mL; Midline or Central Line = 10 mL/lumen.&nbs p; If following IV push medication, administer flush at same rate as the IV push. Flush volume is determined by type of infusion therapy being given. &nbsp ;For non-viscous solutions use: Periphe ral IV = 5 mL Midline or Central Line = 10 mL/lumen &nb sp;For viscous solutions (i.e. blood components, parenteral nutrition, contrast media, or after obtaining blood sample) use: Periphe ral IV = 10 mL Midline or Central Line = 20 mL/lumen Start: 11-30-2021 take 25 mL intraveno usly every hour as needed 25 mL, IntraVENous, at 100 mL/hr, PRN, If patient receiving piggyback infusions without ordered maintenance IV fluids or with frequent/long duration piggyback infusions, Starting on Sun11/30/21 at 2358 Administer at the same rate as the piggyback being infused. Start: 11-30-2021 take 10 mL intraveno usly once as needed 10 mL, IntraVENous, PRN, Starting on 11/30/21 at 2358, Until Discontinued, Line Care, After every IV line use Start: 11-30-2021 End: 12-01-2021 sodium chloride flush 0.9 % injection 10 mL Start: 11-30-2021 End: 11-30-2021 0.9 % sodium chloride bolus Start: 11-26-2021 take 1 dose intraven ously twice daily 5-40 mL, IntraVENous, EVERY 12 HOURS SCHEDULED (2 times per day), First dose on 11/26/21 at 0900 For Line Patency: Peripheral IV = 5 mL; Midline or Central Line = 10 mL/lumen. If following IV push medication, administer flush at same rate as the IV push. Flush volume is determined by type of infusion therapy being given. For non-viscous solutions use: Peripheral IV = 5 mL Midline or Central Line = 10 mL/lumen For viscous solutions (i.e. blood components, parenteral nutrition, contrast media, or after obtaining blood sample) use: Peripheral IV = 10 mL Midline or Central Line = 20 mL/lumen Start: 11-26-2021 take 25 mL intraveno usly every hour as needed 25 mL, IntraVENous, at 100 mL/hr, PRN, If patient receiving piggyback infusions without ordered maintenance IV fluids or with frequent/long duration piggyback infusions, Starting on 11/26/21 at 0623 Administer at the same rate as the piggyback being infused. Start: 11-26-2021 take 5-40 mL intrave nously once as needed 5-40 mL, IntraVENous, PRN, Line Care, After every IV line use, Starting on 11/26/21 at 0623 For Line Patency: Peripheral IV = 5 mL; Midline or Central Line = 10 mL/lumen. If following IV push medication, administer flush at same rate as the IV push. Flush volume is determined by type of infusion therapy being given. For non-viscous solutions use: Peripheral IV = 5 mL Midline or Central Line = 10 mL/lumen For viscous solutions (i.e. blood components, parenteral nutrition, contrast media, or after obtaining blood sample) use: Peripheral IV = 10 mL Midline or Central Line = 20 mL/lumen thiamine (B-1) 100 mg, folic acid (FOLVITE) 1 mg in sodium chloride 0.9 % 50 mL IVPB (1 source) Start: 04-23-2024 End: 04-23-2024 intravenous, at 102 mL/hr, Administer over 30 Minutes, Once, On Sun04/23/24 at 1130, For 1 dose, PACU (only), Look-alike/sound-alike medication - verify indication for use. vitamin b12 1 mg/ml injectable solution (13 sources) Vitamin B12 Start: 01-01-2025 End: 01-01-2025 cyanocobalamin (VITAMIN B-12 ) injection 1,000 mcg Start: 01-01-2025 End: 01-01-2025 inject 1000 ug by intramuscular injection once 1,000 mcg, intramuscular, Once, On [place] 01/01/25 at 1230, For 1 dose Start: 06-04-2024 cyanocobalamin (Vitamin B-12) 1000 MCG/ML injection 07/14/2024 Active Start: 06-04-2024 End: 06-04-2024 cyanocobalamin (VITAMIN B-12 ) injection 1,000 mcg Start: 06-04-2024 End: 06-04-2024 inject 1000 ug by intramuscular injection once 1,000 mcg, intramuscular, Once, On Sun06/04/24 at 1130, For 1 dose Problems Active Problems Problem Classification Problem Date Documented Da te Episodic/Chronic Adjustment disorders (12 sources) Adjustment disorder with anxious mood; Translations: [Adjustment disorder with anxiety] Onset: 2 11-30-2021 Chronic Anxiety disorders (10 sources) Anxiety; Translations: [Anxiety disorder, unspecified] Onset: 9 05-17-2023 Chronic Asthma (20 sources) Mild intermittent asthma, uncomplicated; Translations: [Asthma] Onset: 9 05-17-2023 Chronic Complications of surgical procedures or medical care (16 sources) Post-gastrointestinal tract surgery malnutrition; Translations: [Postsurgical malabsorption, not elsewhere classified] Onset: 5 05-01-2024 Chronic Contraceptive and procreative management (5 sources) Encounter for sterilization; Translations: [Encounter for removal of intrauterine contraceptive device] Onset: 3 Episodic Esophageal disorders (10 sources) Gastroesophageal reflux disease; Translations: [Gastro-esophageal reflux disease without esophagitis] Onset: 0 05-17-2023 Chronic Essential hypertension (11 sources) Essential hypertension; Translations: [Essential (primary) hypertension] Onset: 3 01-26-2023 Chronic Fever of unknown origin (2 sources) Fever; Translations: [Fever, unspecified] 10-10-2024 Episodic Genitourinary symptoms and ill-defined conditions (3 sources) Personal history of urinary (tract) infections; Translations: [Dysuria] Onset: 2 06-12-2024 Episodic Hypertension complicating ; childbirth and the puerperium (2 sources) Pre-eclampsia added to pre-existing hypertension; Translations: [Pre-existing hypertension with pre-eclampsia, unspecified trimester] Onset: 2 11-30-2021 Chronic Influenza (2 sources) Influenza due to Influenza A virus; Translations: [Influenza due to other identified influenza virus with other respiratory manifestations] 10-10-2024 Episodic Menstrual disorders (20 sources) Excessive and frequent menstruation with regular cycle; Translations: [Irregular periods] Onset: 2 Chronic Mood disorders (14 sources) Depressive disorder; Translations: [Depression] Onset: 9 Chronic Nausea and vomiting (13 sources) Nausea and vomiting; Translations: [Nausea with vomiting, unspecified] Onset: 3 05-17-2023 Episodic Nutritional deficiencies (4 sources) Vitamin D deficiency; Translations: [Vitamin D deficiency, unspecified] Onset: 4 08-25-2024 Chronic Nutritional deficiencies (3 sources) Cobalamin deficiency; Translations: [Deficiency of other specified B group vitamins] Onset: 5 06-04-2024 Episodic Other aftercare (1 source) Other residential (current) drug therapy; Translations: [[facility] CURRENT DRUG THERAPY] Onset: 3 Episodic Other complications of ; puerperium affecting management of mother (1 source) Obesity complicating childbirth; Translations: [OBESITY COMPLICATING CHILDBIRTH] Onset: 2 Chronic Other endocrine disorders (10 sources) Polycystic ovary syndrome; Translations: [Polycystic ovarian syndrome] Onset: 3 01-26-2023 Chronic Other gastrointestinal disorders (2 sources) History of bariatric surgical procedure; Translations: [Bariatric surgery status] 08-25-2024 Episodic Other gastrointestinal disorders (5 sources) History of bypass of stomach; Translations: [Bariatric surgery status] Onset: 5 05-01-2024 Episodic Other gastrointestinal disorders (2 sources) Bariatric surgery status; Translations: [Bariatric surgery status] Onset: 5 Episodic Other hematologic conditions (2 sources) History of anemia; Translations: [Personal history of diseases of the blood and blood-forming organs and certain disorders involving the immune mechanism] 10-30-2024 Episodic Other hematologic conditions (2 sources) Personal history of diseases of the blood and blood-forming organs and certain disorders involving the immune mechanism; Translations: [Personal history of diseases of the blood and blood-forming organs and certain disorders involving the immune mechanism] Onset: 5 Episodic Other lower respiratory disease (1 source) Dyspnea; Translations: [Shortness of breath] Episodic Other nervous system disorders (1 source) Other chronic pain; Translations: [Other chronic pain] Onset: 4 Chronic Other nutritional; endocrine; and metabolic disorders (20 sources) Severe obesity; Translations: [Morbid (severe) obesity due to excess calories] Onset: 3 Chronic Other nutritional; endocrine; and metabolic disorders (2 sources) Morbid (severe) obesity due to excess calories; Translations: [MORBID SEVERE OBES D/T EXCESS KALEY] Onset: 2 Chronic Other nutritional; endocrine; and metabolic disorders (11 sources) Body mass index 40+ - severely obese; Translations: [Morbid (severe) obesity due to excess calories] Onset: 3 01-26-2023 Chronic Other nutritional; endocrine; and metabolic disorders (8 sources) Morbid obesity; Translations: [Morbid (severe) obesity due to excess calories] 08-30-2023 Chronic Other nutritional; endocrine; and metabolic disorders (1 source) Body mass index (BMI) 60.0-69.9, adult; Translations: [Body mass index (BMI) 60.0-69.9, adult] Onset: 4 Chronic Other and delivery including normal (3 sources) Single live ; Translations: [] Onset: 2 03-20-2025 Episodic Other upper respiratory disease (10 sources) Allergic rhinitis due to pollen; Translations: [Allergic rhinitis due to pollen] Onset: 0 05-17-2023 Chronic Otitis media and related conditions (2 sources) Acute non-suppurative otitis media - serous; Translations: [Acute serous otitis media, left ear] 08-25-2024 Episodic Ovarian cyst (4 sources) Unspecified ovarian cyst, right side; Translations: [UNSPECIFIED OVARIAN CYST RIGHT SIDE] Onset: 3 Episodic Residual codes; unclassified (2 sources) Obstructive sleep apnea (adult) (pediatric); Translations: [Obstructive sleep apnea (adult) (pediatric)] Onset: 4 Chronic Residual codes; unclassified (3 sources) Sleep apnea; Translations: [Sleep apnea, unspecified] Onset: 3 02-22-2023 Chronic Residual codes; unclassified (20 sources) Obstructive sleep apnea syndrome; Translations: [Obstructive sleep apnea (adult) (pediatric)] Onset: 3 03-04-2024 Chronic Spondylosis; intervertebral disc disorders; other back problems (2 sources) Backache Onset: 5 Episodic Thyroid disorders (13 sources) Thyroid nodule; Translations: [Nontoxic single thyroid nodule] Onset: 3 Chronic Unclassified (1 source) PERSONAL HISTORY OF COVID-19; Translations: [PERSONAL HISTORY OF COVID-19] Onset: 2 Unclassified (1 source) CONTACT W/AND (SUSP) EXPOS COVID-19; Translations: [CONTACT W/AND (SUSP) EXPOS COVID-19] Onset: 2 Unclassified (10 sources) Patient on antidepressant monitoring plan Onset: 4 02-01-2024 Unclassified (10 sources) Baseline PHQ-9 Onset: 4 02-01-2024 Unclassified (1 source) Injection Onset: 5 Unclassified (1 source) Post-op Onset: 4 Unclassified (1 source) MORBID OBESITY/HYPERTENSION Onset: 4 Unclassified (1 source) Consult Onset: 4 Unclassified (1 source) Nutrition Counseling Onset: 4 Unclassified (1 source) Low back pain, unspecified; Translations: [Low back pain, unspecified] Onset: 5 Unclassified (1 source) Pre-op Exam Onset: 4 Past or Other Problems Problem Classification Problem Date Documented Da te Episodic/Chronic Abdominal pain (2 sources) Right upper quadrant pain; Translations: [Right upper quadrant pain] Onset: 03-27-2024 03-27-2024 Episodic Administrative/social admission (10 sources) Patient encounter status; Translations: [Dietary counseling and surveillance] Onset: 02-07-2024 08-30-2023 Episodic Deficiency and other anemia (14 sources) Anemia; Translations: [Anemia, unspecified] Onset: 06-26-2019 Episodic Deficiency and other anemia (12 sources) Iron deficiency anemia; Translations: [Iron deficiency anemia, unspecified] Onset: 12-29-2019 05-17-2023 Episodic Diabetes or abnormal glucose tolerance complicating ; childbirth; or the puerperium (20 sources) Gestational diabetes mellitus; Translations: [Gestational diabetes mellitus in , unspecified control] Onset: 12-09-2018 Resolved: 04-24-2024 Episodic Headache; including migraine (10 sources) Frequent headache; Translations: [Frequent headaches] Onset: 05-17-2023 05-17-2023 Episodic Hypertension complicating ; childbirth and the puerperium (20 sources) pre-eclampsia; Translations: [Unspecified pre-eclampsia, complicating the puerperium] Onset: 11-23-2018 Resolved: 04-24-2024 Episodic Immunizations and screening for infectious disease (1 source) Encounter for screening for human papillomavirus (HPV); Translations: [ENC SCREENING HUMAN PAPILLOMAVIRUS] Onset: 06-28-2022 Episodic Mood disorders (20 sources) Mood disorders Onset: 12-24-2018 Resolved: 04-23-2024 12-24-2018 Other endocrine disorders (10 sources) Disorder of endocrine system; Translations: [Endocrine disorder, unspecified] Onset: 05-17-2023 05-17-2023 Episodic Other gastrointestinal disorders (2 sources) Constipation; Translations: [Constipation, unspecified] 2024 Episodic Other gastrointestinal disorders (1 source) Constipation, unspecified; Translations: [Constipation, unspecified] Onset: 03-27-2024 Episodic Other nervous system disorders (1 source) Acute postoperative pain; Translations: [Other acute postprocedural pain] 04-24-2024 Episodic Other nervous system disorders (1 source) Other acute postprocedural pain; Translations: [Other acute postprocedural pain] Onset: 04-23-2024 Episodic Other screening for suspected conditions (not mental disorders or infectious disease) (4 sources) Encounter for screening for malignant neoplasm of cervix; Translations: [ENC SCREENING MALIG NEOPLASM CERV] Onset: 06-27-2022 Episodic Pneumonia (except that caused by tuberculosis or sexually transmitted disease) (20 sources) Pneumonia; Translations: [Pneumonia, unspecified organism] Onset: 07-30-2022 Resolved: 05-24-2023 05-17-2023 Episodic Pulmonary heart disease (20 sources) Acute pulmonary embolism; Translations: [Other pulmonary embolism without acute cor pulmonale] Onset: 03-17-2022 Episodic Residual codes; unclassified (14 sources) FH: Diabetes in ; Translations: [Family history of diabetes mellitus] Onset: 11-28-2021 Episodic Residual codes; unclassified (1 source) 39 weeks gestation of ; Translations: [39 WEEKS GESTATION OF ] Onset: 11-28-2021 Episodic Residual codes; unclassified (1 source) Personal history of other specified conditions; Translations: [PERSONAL HISTORY OTH SPEC CONDITION] Onset: 11-28-2021 Episodic Residual codes; unclassified (1 source) 38 weeks gestation of ; Translations: [38 WEEKS GESTATION OF ] Onset: 11-18-2021 Episodic Residual codes; unclassified (10 sources) Amnesia; Translations: [Other amnesia] Onset: 05-17-2023 05-17-2023 Episodic Residual codes; unclassified (20 sources) FH: Thrombosis; Translations: [Family history of ischemic heart disease and other diseases of the circulatory system] Onset: 03-17-2022 05-17-2023 Episodic Residual codes; unclassified (1 source) Procedure not done; Translations: [Procedure and treatment not carried out, unspecified reason] 2024 Episodic Residual codes; unclassified (1 source) Other specified postprocedural states; Translations: [Other specified postprocedural states] Onset: 03-27-2024 Episodic Residual codes; unclassified (1 source) Procedure and treatment not carried out, unspecified reason; Translations: [Procedure and treatment not carried out, unspecified reason] Onset: 03-27-2024 Episodic Urinary tract infections (12 sources) Urinary tract infectious disease; Translations: [Urinary tract infection, site not specified] Onset: 05-17-2023 05-17-2023 Episodic Results Test Name Value Interpretation Reference Range Facility HCG ( test) Ql (U)o n 03-20-2025 Interpretation and review of laboratory results Normal [facility] Preg Test, Ur Positive Negative Located within [facility] care [facility] OB TRANSVAGINALon 025 US OB TRANSVAGINAL FINDINGS: A single intrauterine gestational sac is [...] present. Cervical length is 4.3 cm, closed. IMPRESSION: Findings consistent with a live intrauterine gestation, current sonographic age of 9 weeks and 2 days resulting in an estimated date of delivery of October 21, 2025. TRANSCRIBED BY: ELECTRONICALLY SIGNED BY: Aman Amado MD Normal Not Available Comment on above: Order Comment: US OB TRANSVAGINAL No LMP recorded. Urinalysis macro (dipstick) panel (U)on 03-20-2025 Bilirubin, UA Negative Negative - 4(70) +++ mg/dL [facility] Blood, UA Negative Negative - 50 Raul/mcL [facility] Clarity, UA Clear [facility] Color, UA Yellow [facility] Glucose, UA Negative Negative - 2000(110) ++++ mg/dL [facility] Interpretation and review of laboratory results Normal [facility] Ketones, UA Negative Negative - 160(16) ++++ mg/dL [facility] Leukocytes, UA Trace Negative - 500+++ Ramo/mcL [facility] Nitrite, UA Negative Negative - Positive [facility] pH, UA 6 5 - 9 [facility] Protein, UA Negative Negative - 2000(20) ++++ mg/dL [facility] Spec Grav, UA 1.02 1 - 1.03 Located within [facility] care Urobilinogen, UA 2.0 0.2 - 12 mg/dL [facility] CBC AND AUTO DIFFon 24-20 25 ABSOLUTE BASOPHIL 0.1 X10E9/L Normal 0.0-0.2 [facility] Comment on above: Performed By: #### C BCA, FEPR, LIVR, 6-4, 9, 2284-04, 14053-5 #### [facility] ([id number]) [address] [place] [address], [address] [place] [address] #### 60661-9 #### [facility] ([id number]) [address] [place] [address] 38292 ABSOLUTE NEUTROPHIL 6.0 X10E9/L Normal 1.5-6.6 [facility] Comment on above: Performed By: #### C BCA, FEPR, LIVR, 2275-, 2132-05, 2284-04, 24271-5 #### [facility] ([id number]) [address] [place] [address], [address] [place] [address] #### 15557-8 #### [facility] ([id number]) [address] [place] [address] 42225 Basophils/100 WBC (Bld) 0.7 % Normal [facility] Comment on above: Performed By: #### C BCA, FEPR, LIVR, 2275-, 2132-05, 2284-04, 16309-2 #### [facility] ([id number]) [address] [place] [address], [address] [place] [address] #### 32168-2 #### [facility] ([id number]) [address] [place] [address] 46166 Eosinophils (Bld) [#/Vol] 0.1 10*3/uL Normal 0.0-0.4 [facility] Comment on above: Performed By: #### C BCA, FEPR, LIVR, 6-4, 9, 8, 74711-0 #### [facility] ([id number]) [address], [address] [place] [address] #### 21454-9 #### [facility] ([id number]) [address] [place] [address] 03428 Eosinophils/100 WBC (Bld) 0.9 % Normal [facility] Comment on above: Performed By: #### C BCA, FEPR, LIVR, 2275-12, 2132-05, 2284-04, 26052-9 #### [facility] ([id number]) [address], [address] [place] [address] #### 50440-3 #### [facility] ([id number]) [address] [place] [address] 01119 Erythrocyte distribution width (RBC) [Ratio] 14.2 % Normal 11.5-15.0 [facility] Comment on above: Performed By: #### C BCA, FEPR, LIVR, 2275-12, 2132-05, 2284-04, 52066-3 #### [facility] ([id number]) [address], [address] [place] [address] #### 21263-7 #### [facility] ([id number]) [address] [place] [address] 20042 Hematocrit (Bld) [Volume fraction] 38.0 % Normal 35-47 [facility] Comment on above: Performed By: #### C BCA, FEPR, LIVR, 2275-, 2132-05, 2284-04, 40524-2 #### [facility] ([id number]) [address], [address] [place] [address] #### 19485-3 #### [facility] ([id number]) [address] [place] [address] 53376 Hemoglobin (Bld) [Mass/Vol] 12.8 g/dL Normal 11.7-15.5 [facility] Comment on above: Performed By: #### C BCA, FEPR, LIVR, 6-4, 2132-05, 2284-04, 51492-0 #### [facility] ([id number]) [address], [address] [place] [address] #### 87839-0 #### [facility] ([id number]) [address] [place] [address] 61913 Lymphocytes (Bld) [#/Vol] 3.8 10*3/uL High 1.0-3.5 [facility] Comment on above: Performed By: #### C BCA, FEPR, LIVR, 2275-, 2132-05, 2284-04, 00237-4 #### [facility] ([id number]) [address], [address] [place] [address] #### 78713-7 #### [facility] ([id number]) [address] [place] [address] 47939 Lymphocytes/100 WBC (Bld) 36.4 % Normal [facility] Comment on above: Performed By: #### C BCA, FEPR, LIVR, 2275-, 2132-05, 2284-04, 71917-3 #### [facility] ([id number]) [address], [address] [place] [address] #### 92155-3 #### [facility] ([id number]) [address] [place] [address] 79857 MCH (RBC) [Entitic mass] 28.8 pg Normal 27-34 [facility] Comment on above: Performed By: #### C BCA, FEPR, LIVR, 2275-12, 2132-05, 2284-04, 92502-8 #### [facility] ([id number]) [address], [address] [place] [address] #### 91063-2 #### [facility] ([id number]) [address] [place] [address] 40811 MCHC (RBC) [Mass/Vol] 33.8 g/dL Normal 32-36 [facility] Comment on above: Performed By: #### C BCA, FEPR, LIVR, 2275-12, 2132-05, 2284-04, 06828-6 #### [facility] ([id number]) [address], [address] [place] [address] #### 16934-4 #### [facility] ([id number]) [address] [place] [address] 55008 MCV (RBC) [Entitic vol] 85 fL Normal 80-100 [facility] Comment on above: Performed By: #### C BCA, FEPR, LIVR, 2275-12, 2132-05, 2284-04, 44829-6 #### [facility] ([id number]) [address], [address] [place] [address] #### 74745-5 #### [facility] ([id number]) [address] [place] [address] 10376 Monocytes (Bld) [#/Vol] 0.4 10*3/uL Normal 0-0.9 [facility] Comment on above: Performed By: #### C BCA, FEPR, LIVR, 2275-12, 2132-05, 2284-04, 37025-1 #### [facility] ([id number]) [address], [address] [place] [address] #### 90338-8 #### [facility] ([id number]) [address] [place] [address] 93300 Monocytes/100 WBC (Bld) 4.1 % Normal [facility] Comment on above: Performed By: #### C BCA, FEPR, LIVR, 6-4, 9, 2284-04, 72279-8 #### [facility] ([id number]) [address], [address] [place] [address] #### 24272-6 #### [facility] ([id number]) [address] [place] [address] 00840 Neutrophils/100 WBC (Bld) 57.9 % Normal [facility] Comment on above: Performed By: #### C BCA, FEPR, LIVR, 2275-, 9, 2284-04, 76223-3 #### [facility] ([id number]) [address], [address] [place] [address] #### 25713-2 #### [facility] ([id number]) [address] [place] [address] 72976 Platelet mean volume (Bld) [Entitic vol] 8.7 fL Normal 7-12 [facility] Comment on above: Performed By: #### C BCA, FEPR, LIVR, 6-4, 9, 2284-04, 90854-1 #### [facility] ([id number]) [address], [address] [place] [address] #### 71487-7 #### [facility] ([id number]) [address] [place] [address] 27969 Platelets (Bld) [#/Vol] 308 10*3/uL Normal 150-450 [facility] Comment on above: Performed By: #### C BCA, FEPR, LIVR, 6-4, 9, 2283-8, 15422-5 #### [facility] ([id number]) [address], [address] [place] [address] #### 83440-9 #### [facility] ([id number]) [address] [place] [address] 96237 RBC COUNT 4.45 X10E12/L Normal 3.80-5.20 [facility] Comment on above: Performed By: #### C BCA, FEPR, LIVR, 6-4, 9, 2284-04, 40203-2 #### [facility] ([id number]) [address], [address] [place] [address] #### 36674-8 #### [facility] ([id number]) [address] [place] [address] 08471 WBC (Bld) [#/Vol] 10.5 10*3/uL Normal 4.0-11.0 [facility] Comment on above: Performed By: #### C BCA, FEPR, LIVR, 6-4, 9, 2283-8, 21588-8 #### [facility] ([id number]) [address], [address] [place] [address] #### 60774-1 #### [facility] ([id number]) [address] [place] [address] 24676 FERRITINon 01-01-2025 Ferritin [Mass/Vol] 40 ng/mL Normal 11-307 [facility] Comment on above: Performed By: #### H A1C, FEPR, 20882-1, 3016-3, 4-8, 2131- 9, 87090-3 #### [facility] ([id number]) [address], [address] [place] [address] #### 45023-4 #### [facility] ([id number]) [address] [place] [address] 30469 Folate [Mass/Vol]on 01-02-20 25 FOLIC ACID 4.0 ng/mL Low >5.8 [facility] Comment on above: Result Comment: NEW REFERENCE RANGE Performed By: #### H A1C, FEPR, 29331-0, 3016-3, 2284-8, 2-9, 57142-1 #### [facility] ([id number]) [address], [address] [place] [address] #### 01906-3 #### [facility] ([id number]) [address] [place] [address] 07410 IRON PROFILEon 01-01-2025 Iron [Mass/Vol] 36 ug/dL Low 50-170 [facility] Comment on above: Performed By: #### H A1C, FEPR, 83847-3, 3016-3, 2284-8, 2131- 9, 59704-4 #### [facility] ([id number]) [address] [facility], [address] [place] [address] #### 10043-0 #### [facility] ([id number]) [address] [place] [address] 76648 IRON BINDING 346 ug/dL Normal 250-425 [facility] Comment on above: Performed By: #### H A1C, FEPR, 03544-4, 3016-3, 2284-8, 2- 9, 73513-9 #### [facility] ([id number]) [address], [address] [place] [address] #### 38102-6 #### [facility] ([id number]) [address] [place] [address] 81224 IRON SATURATION 10 % SATURATION Low 15-50 [facility] Comment on above: Performed By: #### H A1C, FEPR, 51547-4, 3016-3, 2284-8, 2132- 9, 42023-2 #### [facility] ([id number]) [address], [address] [place] [address] #### 60048-9 #### [facility] ([id number]) [address] [place] [address] 73141 LIVER PANELon 01-01-2025 Albumin [Mass/Vol] 4.1 g/dL Normal 3.2-5.3 [facility] Comment on above: Performed By: #### H A1C, FEPR, 71064-6, 3016-3, 2284-8, 2131- 9, 84415-8 #### [facility] ([id number]) [address], [address] [place] [address] #### 58770-5 #### [facility] ([id number]) [address] [place] [address] 64093 ALP [Catalytic activity/Vol] 95 U/L Normal 39-130 [facility] Comment on above: Performed By: #### H A1C, FEPR, 51637-8, 3016-3, 2284-8, 2- 9, 45183-4 #### [facility] ([id number]) [address], [address] [place] [address] #### 45893-5 #### [facility] ([id number]) [address] [place] [address] 36049 ALT [Catalytic activity/Vol] 24 U/L Normal 0-31 [facility] Comment on above: Performed By: #### H A1C, FEPR, 99307-2, 3016-3, 2284-8, 2132- 9, 55185-4 #### [facility] ([id number]) [address], [address] [place] [address] #### 10653-5 #### [facility] ([id number]) [address] [place] [address] 73396 AST [Catalytic activity/Vol] 18 U/L Normal 0-41 [facility] Comment on above: Performed By: #### H A1C, FEPR, 73163-4, 3016-3, 2284-8, 2132- 9, 61995-4 #### [facility] ([id number]) [address] [place] [address] #### 75089-1 #### [facility] ([id number]) [address] [place] [address] 24751 Bilirubin [Mass/Vol] 0.4 mg/dL Normal 0.3-1.2 [facility] Comment on above: Performed By: #### H A1C, FEPR, 41559-9, 3016-3, 4-8, 2131- 9, 83757-5 #### [facility] ([id number]) [address] [facility], [address] [place] [address] #### 57932-4 #### [facility] ([id number]) [address] [place] [address] 80135 Bilirubin.direct [Mass/Vol] 0.2 mg/dL Normal 0.0-0.4 [facility] Comment on above: Performed By: #### H A1C, FEPR, 32566-5, 3016-3, 2284-8, 2131- 9, 93658-5 #### [facility] ([id number]) [address] [facility], [address] [place] [address] #### 33487-5 #### [facility] ([id number]) [address] [place] [address] 15975 Protein [Mass/Vol] 7.1 g/dL Normal 6.0-8.0 [facility] Comment on above: Performed By: #### H A1C, FEPR, 04691-4, 3016-3, 2284-8, 2- 9, 08122-9 #### [facility] ([id number]) [address], [address] [place] [address] #### 23468-8 #### [facility] ([id number]) [address] [place] [address] Thiamine (Bld) [Moles/Vol]on 01-01-2025 Thiamin (Vitamin B1), WB 118 nmol/L Normal 70-180 [facility] Comment on above: Result Comment: NOTE ADDITIONAL INFORMATION This test was developed and its performance characteristics determined by [facility] in a manner consistent with CLIA requirements. This test has not been cleared or approved by the U.S. Food and Drug Administration. Test Performed by: [facility] [address] [place] [address] Kettle Operator Head: Jayce Daniels Ph.D.; CLIA# [id number] Performed By: #### H A1C, FEPR, 19094-4, 3016-3, 2284-8, 2131-9, 22365-7 #### [facility] ([id number]) [address] [place] [address] #### 68199-5 #### [facility] ([id number]) [address] [place] [address] VITAMIN B12on 01-01-2025 Cobalamin (Vitamin B12) [Mass/Vol] 379 pg/mL Normal 180-914 [facility] Comment on above: Performed By: #### H A1C, FEPR, 17899-7, 3016-3, 2284-8, 2- 9, 40317-7 #### [facility] ([id number]) [address] [place] [address] #### 29761-9 #### [facility] ([id number]) [address] [place] [address] 98099 Vitamin D+Metabolites [Mass/ Vol]on 01-01-2025 VITAMIN D 25 HYD TOT 32.4 ng/mL Normal 30-100 [facility] Comment on above: Result Comment: Vitamin D status 25 [place] Vitamin D Deficiency <20 ng/mL Insufficiency 20-29 ng/mL Sufficiency 30-100 ng/mL Toxicity >100 ng/mL NOTE: A pediatric reference range has not been established by the sales porter of this kit. The [place] [employer] recommends a Vitamin D level of = or >20ng/mL in infants and children. Performed By: #### H A1C, FEPR, 80102-4, 3016-3, 2284-8, 2132-9, 54737-0 #### [facility] ([id number]) [address] [place] [address] #### 73421-6 #### [facility] ([id number]) [address] [place] [address] 34663 XR SPINE LUMBAR 2 OR 3 VWSon 12-15-2024 XR SPINE LUMBAR 2 OR 3 VWS XR SPINE LUMBAR 2 OR 3 VWS Clinical history: Back pain Lumbar spine: 12/15/2024 COMPARISON: None FINDINGS: 3 views lumbar spine were obtained. 5 lumbar-type vertebrae are present. Vertebral shapes are within normal limits. Disc spacing is normal. Facet alignment is anatomic. Some small bowel distention the right midabdomen may represent a localized ileus. IMPRESSION: No acute osseous abnormality evident radiographically. IMPRESSION: Nonspecific bowel gas pattern with possible localized ileus on the right. Finalized by Jovanni Gallegos MD on 12/15/2024 1:53 PM Normal [facility] - Microbiology an d Antimicrobial susceptibilityon 10-10-2024 SARS-CoV-2 (COVID-19) RNA MYNOR+probe Ql (Unsp spec) Negative [facility] No Panel Informationon 10-10 FLU A Positive [facility] FLU B Negative [facility] Interpretation and review of laboratory results Abnormal [facility] Urinalysis macro (dipstick) panel (U)on 06-12-2024 Bilirubin, UA Negative Negative - 4(70) +++ mg/dL [facility] Blood, UA Positive Negative - 50 Raul/mcL [facility] Clarity, UA Clear [facility] Color, UA Yellow [facility] Glucose, UA Negative Negative - 1999(110) ++++ mg/dL [facility] Interpretation and review of laboratory results Abnormal [facility] Ketones, UA Positive Negative - 160(16) ++++ mg/dL [facility] Leukocytes, UA 1+ Negative - 500+++ Ramo/mcL [facility] Nitrite, UA Negative Negative - Positive [facility] pH, UA 5.0 5 - 9 [facility] Protein, UA 1+ Negative - 1999(20) ++++ mg/dL [facility] Spec Grav, UA 1.020 1 - 1.03 [facility] Urobilinogen, UA 4.0 0.2 - 12 mg/dL [facility] ti Serviceson 05-01-2024 [facility] CREATININEon 04-24-2024 Creatinine [Mass/Vol] 0.69 mg/dL Normal 0.40-1.00 [facility] Comment on above: Result Comment: METH OD TRACEABLE TO IDMS STANDARD Performed By: #### C RT, PLTCT, #### [facility] ([id number]) [address], [address] [place] [address] eGFR (CKD-EPI) NON-RACE DEPENDENT >90 Normal >59 [facility] Comment on above: Result Comment: Reported eGFR is based on the CKD-EPI 2020 equation that does not use a race coefficient. Performed By: #### C RT, PLTCT, #### [facility] ([id number]) [address] [place] [address] Creatinine includes GFR, ser umon 04-24-2024 Creatinine [Mass/Vol] 0.69 mg/dL 0.40 - 1.00 mg/dL [facility] Comment on above: METHOD TRACEABLE TO IDMN STANDARD eGFR (CKD-EPI)non-race dependent - PINF [facility] Comment on above: Reported eGFR is based on the CKD-EPI 2020 equation that does not use a race coefficient. [facility] HGB AND HCTon 04-24-2024 Hematocrit (Bld) [Volume fraction] 35.0 % Normal 35-47 [facility] Comment on above: Performed By: #### C RT, PLTCT, HH #### [facility] ([id number]) [address], [address] [place] [address] Hemoglobin (Bld) [Mass/Vol] 11.4 g/dL Low 11.7-15.5 [facility] Comment on above: Performed By: #### C RT, PLTCT, HH #### [facility] ([id number]) [address], [address] [place] [address] Hemoglobin and hematocrit, b loodon 04-24-2024 Hematocrit (Bld) [Volume fraction] 35.0 % 35 - 47 % [facility] Hemoglobin (Bld) [Mass/Vol] 11.4 g/dL Low 11.7 - 15.5 g/dL [facility] Interpretation and review of laboratory results Abnormal [facility] No Panel Informationon 04-[address] [facility] PLATELET COUNT AND MPVon Platelet mean volume (Bld) [Entitic vol] 7.8 fL Normal 7-12 [facility] Comment on above: Performed By: #### C RT, PLTCT, HH #### [facility] ([id number]) [address], [address] [place] [address] Platelets (Bld) [#/Vol] 323 10*3/uL Normal 150-450 [facility] Comment on above: Performed By: #### C RT, PLTCT, HH #### [facility] ([id number]) [address], [address] [place] [address] Platelet counton 04-24-2024 Platelet mean volume (Bld) [Entitic vol] 7.8 fL 7 - [address] [facility] Platelets (Bld) [#/Vol] 323 10*3/uL [facility] HCG ( test) Ql (U)o n 04-23-[address] [facility] Beta HCG ( test) Ql (U) Negative Normal NEG [facility] Comment on above: Performed By: #### 2 106-3 #### [facility] ([id number]) [address] [place] [address] POCT , urineon 04-10 HCG ( test) Ql (U) Negative Negative^Nega tive [facility] BASIC METABOLIC PANLon 04-15 Anion gap [Moles/Vol] 11 mmol/L Normal 5-15 [facility] Comment on above: Performed By: #### C KELLY, BMP #### [facility] ([id number]) [address], [address] [place] [address] Calcium [Mass/Vol] 9.6 mg/dL Normal 8.5-10.5 [facility] Comment on above: Performed By: #### C BC, BMP #### [facility] ([id number]) [address], [address] [place] [address] Chloride [Moles/Vol] 102 mmol/L Normal 98-109 [facility] Comment on above: Performed By: #### C BC, BMP #### [facility] ([id number]) [address], [address] [place] [address] CO2 [Moles/Vol] 24 mmol/L Normal 22-32 [facility] Comment on above: Performed By: #### C BC, BMP #### [facility] ([id number]) [address], [address] [place] [address] Creatinine [Mass/Vol] 0.60 mg/dL Normal 0.40-1.00 [facility] Comment on above: Result Comment: METH OD TRACEABLE TO IDMS STANDARD Performed By: #### C KELLY, BMP #### [facility] ([id number]) [address], [address] [place] [address] eGFR (CKD-EPI) NON-RACE DEPENDENT >90 Normal >59 [facility] Comment on above: Result Comment: Reported eGFR is based on the CKD-EPI 2020 equation that does not use a race coefficient. Performed By: #### Deepika MENDOZA, BMP #### [facility] ([id number]) [address], [address] [place] [address] Glucose [Mass/Vol] 110 mg/dL High 65-99 [facility] Comment on above: Performed By: #### Deepika MENDOZA, BMP #### [facility] ([id number]) [address], [address] [place] [address] Potassium [Moles/Vol] 4.2 mmol/L Normal 3.5-5.0 [facility] Comment on above: Performed By: #### Deepika MENDOZA, BMP #### [facility] ([id number]) [address], [address] [place] [address] Sodium [Moles/Vol] 137 mmol/L Normal 134-146 [facility] Comment on above: Performed By: #### Deepika MENDOZA, BMP #### [facility] ([id number]) [address], [address] [place] [address] Urea nitrogen [Mass/Vol] 13 mg/dL Normal 5-23 [facility] Comment on above: Performed By: #### Deepika MENDOZA, BMP #### [facility] ([id number]) [address], [address] [place] [address] Basic Metabolic Panelon 08-0 Anion gap [Moles/Vol] 11 mmol/L 5 - 15 mmol/L [facility] Calcium [Mass/Vol] 9.6 mg/dL 8.5 - 10. 5 mg/dL [facility] Chloride [Moles/Vol] 102 mmol/L 98 - 10 9 mmol/L [facility] CO2 [Moles/Vol] 24 mmol/L 22 - 32 mmol/L [facility] Creatinine [Mass/Vol] 0.60 mg/dL 0.40 - 1.00 mg/dL [facility] Comment on above: METHOD TRACEABLE TO [facility] STANDARD eGFR (CKD-EPI)non-race dependent - PINF [facility] Comment on above: Reported eGFR is based on the CKD-EPI 2020 equation that does not use a race coefficient. Glucose [Mass/Vol] 110 mg/dL High 65 - 99 mg/dL [facility] Interpretation and review of laboratory results Abnormal [facility] Potassium [Moles/Vol] 4.2 mmol/L 3.5 - 5.0 mmol/L [facility] Sodium [Moles/Vol] 137 mmol/L 134 - 146 mmol/L [facility] Urea nitrogen [Mass/Vol] 13 mg/dL 5 - 23 mg/dL [facility] CBC without diffon Erythrocyte distribution width (RBC) [Ratio] 15.0 % 11.5 - 15.0 % [facility] Hematocrit (Bld) [Volume fraction] 38.3 % 35 - 47 % [facility] Hemoglobin (Bld) [Mass/Vol] 12.8 g/dL 11.7 - 15.5 g/dL [facility] MCH (RBC) [Entitic mass] 27.7 pg 27 - [address] [facility] MCHC (RBC) [Mass/Vol] 33.5 g/dL 32 - 36 g/dL [facility] MCV (RBC) [Entitic vol] 83 fL 80 - [address] [facility] Platelet mean volume (Bld) [Entitic vol] 7.9 fL 7 - [address] [facility] Platelets (Bld) [#/Vol] 318 10*3/uL [facility] RBC (Bld) [#/Vol] 4.63 10*6/uL [facility] WBC corrected for nucl RBC Auto (Bld) [#/Vol] 9.0 [facility] COMPLETE BLOOD COUNTon 04-15 Erythrocyte distribution width (RBC) [Ratio] 15.0 % Normal 11.5-15.0 [facility] Comment on above: Performed By: #### C KELLY, BMP #### [facility] ([id number]) [address], [address] [place] [address] Hematocrit (Bld) [Volume fraction] 38.3 % Normal 35-47 [facility] Comment on above: Performed By: #### Deepika MENDOZA, BMP #### [facility] ([id number]) [address], [address] [place] [address] Hemoglobin (Bld) [Mass/Vol] 12.8 g/dL Normal 11.7-15.5 [facility] Comment on above: Performed By: #### Deepika MENDOZA, BMP #### [facility] ([id number]) [address], [address] [place] [address] MCH (RBC) [Entitic mass] 27.7 pg Normal 27-34 [facility] [facility] Comment on above: Performed By: #### Deepika MENDOZA, BMP #### [facility] ([id number]) [address], [address] [place] [address] MCHC (RBC) [Mass/Vol] 33.5 g/dL Normal 32-36 [facility] Comment on above: Performed By: #### Deepika MENDOZA, BMP #### [facility] ([id number]) [address], [address] [place] [address] MCV (RBC) [Entitic vol] 83 fL Normal 80-100 [facility] Comment on above: Performed By: #### Deepika MENDOZA, BMP #### [facility] ([id number]) [address], [address] [place] [address] Platelet mean volume (Bld) [Entitic vol] 7.9 fL Normal 7-12 [facility] Comment on above: Performed By: #### C KELLY, BMP #### [facility] ([id number]) [address], [address] [place] [address] Platelets (Bld) [#/Vol] 318 10*3/uL Normal 150-450 [facility] Comment on above: Performed By: #### C KELLY, BMP #### [facility] ([id number]) [address], [address] [place] [address] RBC COUNT 4.63 X10E12/L Normal 3.80-5.20 [facility] Comment on above: Performed By: #### C KELLY, BMP #### [facility] ([id number]) [address] [address] [place] [address] WBC (Bld) [#/Vol] 9.0 10*3/uL Normal 4.0-11.0 [facility] Comment on above: Performed By: #### C KELLY, BMP #### [facility] ([id number]) [address] [address] [place] [address] Nicotine and Metabolites knapp el (U) [Mass/Vol]on 03-27-2024 Anabasine <2.0 Normal <2.0 [facility] Comment on above: Result Comment: NOTE ADDITIONAL INFORMATION This test was developed and its performance characteristics determined by [facility] in a manner consistent with CLIA requirements. This test has not been cleared or approved by the U.S. Food and Drug Administration. Test Performed by: [facility] [address] [place] [address] Kettle Operator Head: Jayce Daniels Ph.D.; CLIA# [id number] Cotinine <5.0 Normal <5.0 [facility] Nicotine <5.0 Normal <5.0 [facility] Nornicotine <2.0 Normal <2.0 [facility] Folate [Mass/Vol]on 03-24-20 FOLIC ACID 9.4 ng/mL Normal >5.8 [facility] Comment on above: Result Comment: NEW REFERENCE RANGE Performed By: #### H A1C, FEPR, 30310-1, 3016-3, 2284-8, 2131-9, 69110-1 #### [facility] ([id number]) [address] [place] [address], [address] [place] [address] #### 64401-7 #### [facility] ([id number]) [address] [place] [address] HGB A1C (GLYCO-HGB)on 2023 Glucose [Mass/Vol] 126 mg/dL Normal [facility] Comment on above: Performed By: #### H A1C, FEPR, 91403-5, 3016-3, 2283-8, 9, 75767-6 #### [facility] ([id number]) [address] [place] [address], [address] [place] [address] #### 40024-1 #### [facility] ([id number]) [address] [place] [address] HbA1c (Bld) [Mass fraction] 6.0 % High 4.4-5.6 [facility] Comment on above: Result Comment: NOTE ADA Guidelines Result HgbA1c Normal : less than 5.7 % Prediabetes : 5.7 % to 6.4 % Diabetes : > 6.4 % Use with caution in patients with abnormal hemoglobin variants as the half-life of red blood cells and in vivo glycation rates are affected. Performed By: #### H A1C, FEPR, 09311-9, 3016-3, 2284-8, 2131-9, 01987-2 #### [facility] ([id number]) [address] [facility], [address] [place] [address] #### 09910-5 #### [facility] ([id number]) [address] [place] [address] IRON PROFILEon 03-24-2024 Iron [Mass/Vol] 60 ug/dL Normal 50-170 [facility] Comment on above: Performed By: #### H A1C, FEPR, 31805-1, 3016-3, 2284-8, 2132- 9, 65924-9 #### [facility] ([id number]) [address] [place] [address], [address] [place] [address] #### 08025-4 #### [facility] ([id number]) [address] [place] [address] IRON BINDING 393 ug/dL Normal 250-425 [facility] Comment on above: Performed By: #### H A1C, FEPR, 83734-0, 3016-3, 2284-8, 2- 9, 52423-7 #### [facility] ([id number]) [address] [place] [address], [facility] [address] [place] [address] #### 35189-8 #### [facility] ([id number]) [address] [place] [address] IRON SATURATION 15 % SATURATION Normal 15-50 [facility] Comment on above: Performed By: #### H A1C, FEPR, 42138-1, 3016-3, 2284-8, 2132- 9, 98807-1 #### [facility] ([id number]) [address] [facility], [facility] [address] [place] [address] #### 64456-8 #### [facility] ([id number]) [address] [place] [address] Lipid 1996 panelon Cholesterol [Mass/Vol] 181 mg/dL Normal 150-200 [facility] Comment on above: Performed By: #### H A1C, FEPR, 87121-6, 3016-3, 2284-8, 2132- 9, 01397-2 #### [facility] ([id number]) [address] [place] [address] #### 96716-9 #### [facility] ([id number]) [address] [place] [address] Cholesterol in HDL [Mass/Vol] 38 mg/dL Low >39 [facility] Comment on above: Result Comment: HDL <40 mg/dL - High Risk HDL > or = 40mg/dL- Desirable HDL >60 mg/dL - Negative Risk Performed By: #### H A1C, FEPR, 89508-8, 3016-3, 2284-8, 2131-9, 04191-3 #### [facility] ([id number]) [address] [place] [address] #### 41318-9 #### [facility] ([id number]) [address] [place] [address] Cholesterol in LDL [Mass/Vol] 109 mg/dL Normal <130 [facility] Comment on above: Result Comment: LDL <100 mg/dL - Desirable LDL >160 mg/dL - High Risk Performed By: #### H A1C, FEPR, 43703-6, 3016-3, 2284-8, 2132-9, 40601-8 #### [facility] ([id number]) [address] [place] [address] #### 87827-7 #### [facility] ([id number]) [address] [place] [address] Cholesterol in VLDL [Mass/Vol] 34 mg/dL High 0-30 [facility] Comment on above: Performed By: #### H A1C, FEPR, 67950-0, 3016-3, 2284-8, 2- 9, 39934-4 #### [facility] ([id number]) [address] [place] [address] #### 77177-8 #### [facility] ([id number]) [address] [place] [address] CHOLESTEROL:HDL 4.8 Normal 1.0-5.0 [facility] Comment on above: Performed By: #### H A1C, FEPR, 40395-1, 3016-3, 2284-8, 2131- 9, 60481-2 #### [facility] ([id number]) [address] [place] [address] #### 83077-6 #### [facility] ([id number]) [address] [place] [address] Triglyceride [Mass/Vol] 172 mg/dL High 27-150 [facility] Comment on above: Performed By: #### H A1C, FEPR, 00537-5, 3016-3, 2284-8, 2131- 9, 12725-0 #### [facility] ([id number]) [address] [place] [address] #### 39700-9 #### [facility] ([id number]) [address] [place] [address] TSH Qnon 03-24-2024 TSH 1.53 uIU/mL Normal 0.49-4.67 [facility] Comment on above: Performed By: #### H A1C, FEPR, 60396-6, 3016-3, 2284-8, 2131- 9, 25059-1 #### [facility] ([id number]) [address] [place] [address] #### 47462-0 #### [facility] ([id number]) [address] [place] [address] VITAMIN B12on 03-24-2024 Cobalamin (Vitamin B12) [Mass/Vol] 344 pg/mL Normal 180-914 [facility] Comment on above: Performed By: #### H A1C, FEPR, 45919-9, 3016-3, 4-8, 9, 33798-3 #### [facility] ([id number]) [address] [place] [address] #### 43029-6 #### [facility] ([id number]) [address] [place] [address] Vitamin D+Metabolites [Mass/ Vol]on 03-24-2024 VITAMIN D 25 HYD TOT 24.7 ng/mL Low 30-100 [facility] Comment on above: Result Comment: Vitamin D status 25 [place] Vitamin D Deficiency <20 ng/mL Insufficiency 20-29 ng/mL Sufficiency 30-100 ng/mL Toxicity >100 ng/mL NOTE: A pediatric reference range has not been established by the sales porter of this kit. The [place] [employer] recommends a Vitamin D level of = or >20ng/mL in infants and children. Performed By: #### H A1C, FEPR, 93925-1, 3016-3, 2284-8, 2-9, 13149-5 #### [facility] ([id number]) [address] [place] [address] #### 89000-5 #### [facility] ([id number]) [address] [place] [address], [place] [address] CBC AUTO DIFFon 11-03-2022 BASO # 0.1 103/ul Normal 0.0-0.1 [facility] Comment on above: Performed By: #### C BC #### [facility] [address] [address] [address] Emmanuel Murray Basophils/100 WBC (Bld) 0.6 % Normal 0.2-2.0 [facility] Comment on above: Performed By: #### C BC #### [facility] [address] [address] [address] Emmanuel Murray EO # 0.2 103/ul Normal 0.0-0.7 [facility] Comment on above: Performed By: #### C BC #### [facility] [address] [address] [address] Emmanuel Murray Eosinophils/100 WBC (Bld) 1.8 % Normal 0.9-7.0 [facility] Comment on above: Performed By: #### C BC #### [facility] [address] [address] [address] Emmanuel Murray Erythrocyte distribution width (RBC) [Ratio] 14.4 % Normal 11.0-15.0 [facility] Comment on above: Performed By: #### C BC #### [facility] [address] [address] [address] Emmanuel Murray Hematocrit (Bld) [Volume fraction] 37.7 % Normal 36.0-48.0 [facility] Comment on above: Performed By: #### C BC #### [facility] [address] [address] [address] Emmanuel Murray Hemoglobin (Bld) [Mass/Vol] 12.2 g/dL Normal 12.0-16.0 [facility] Comment on above: Performed By: #### C BC #### [facility] [address] [address] [address] Emmanuel Murray IG # 0.08 10e3/ul Critically high 0.00-0.03 [facility] Comment on above: Performed By: #### C BC #### [facility] [address] [address] [address] Emmanuel Murray IG % 0.8 % Critically high 0.0-0.5 [facility] Comment on above: Performed By: #### C BC #### [facility] [address] [place] [address] Dr. Emmanuel Murray LYMPH # 3.0 103/ul Normal 1.2-3.8 [facility] Comment on above: Performed By: #### C BC #### [facility] [address] [place] [address] Dr. Emmanuel Murray Lymphocytes/100 WBC (Bld) 30.6 % Normal 20.5-60.0 [facility] Comment on above: Performed By: #### C BC #### [facility] [address] [place] [address] Dr. Emmanuel Murray MANUAL DIFF REQ NO Normal [facility] Comment on above: Performed By: #### C BC #### [facility] [address] [place] [address] Dr. Emmanuel Murray MCH (RBC) [Entitic mass] 26.0 pg Critically low 26.7-34.0 [facility] Comment on above: Performed By: #### C BC #### [facility] [address] [place] [address] Dr. Emmanuel Murray MCHC (RBC) [Mass/Vol] 32.4 g/dL Normal 29.9-35.2 [facility] Comment on above: Performed By: #### C BC #### [facility] [address] [place] [address] Dr. Emmanuel Murray MCV (RBC) [Entitic vol] 80.4 fL Critically low 81.0-99.0 [facility] Comment on above: Performed By: #### C BC #### [facility] [address] [place] [address] Dr. Emmanuel Murray MONO # 0.4 103/ul Normal 0.3-0.8 [facility] Comment on above: Performed By: #### C BC #### [facility] [address] [place] [address] Dr. Emmanuel Murray Monocytes/100 WBC (Bld) 4.6 % Normal 1.7-12.0 [facility] Comment on above: Performed By: #### C BC #### [facility] [address] [address] [address] Emmanuel Murray NEUT # 6.0 103/ul Normal 1.4-6.5 [facility] Comment on above: Performed By: #### C BC #### [facility] [address] [place] [address] Dr. Emmanuel Murray Neutrophils/100 WBC (Bld) 61.6 % Normal 43.0-75.0 [facility] Comment on above: Performed By: #### C BC #### [facility] [address] [place] [address] Dr. Emmanuel Murray Platelet mean volume (Bld) [Entitic vol] 8.9 fL Critically low 9.5-13.5 [facility] Comment on above: Performed By: #### C BC #### [facility] [address] [place] [address] Dr. Emmanuel Murray PLT 301 103/ul Normal 150-450 [facility] Comment on above: Performed By: #### C BC #### [facility] [address] [place] [address] Dr. Emmanuel Murray RBC 4.69 106/ul Normal 4.20-5.40 [facility] Comment on above: Performed By: #### C BC #### [facility] [address] [place] [address] Dr. Emmanuel Murray WBC 9.7 103/ul Normal 4.0-11.0 [facility] Comment on above: Performed By: #### C BC #### [facility] [address] [place] [address] Dr. Emmanuel Murray PREG QUANT HCGon 11-03-2022 HCG QUANT 1 mIU/mL Normal [facility] Comment on above: Performed By: #### C VDTBH #### [facility] [address] [place] [address] Dr. Emmanuel Murray HCG RANGE SEE BELOW [facility] Comment on above: Result Comment: 5-50 0.2-1 WEEK 50-500 1-2 WEEKS 100-5,000 2-3 WEEKS 500-10,000 3-4 WEEKS 1,000-50,000 4-5 WEEKS 10,000-100,000 5-6 WEEKS 15,000-200,000 6-8 WEEKS 10,000-100,000 2-3 MONTHS Performed By: #### [facility] #### [facility] [address] [place] [address] Dr. Emmanuel Murray US PELVIS AND TRANSVAGon US PELVIS AND TRANSVAG EXAMINATION: US PELVIS AND TRANSVAG HISTORY: Cyst of right ovary COMPARISON: 07/01/2022 FINDINGS: The uterus is normal in size, contour and myometrial echotexture measuring 9.6 x 5.5 x 4.9 cm, anteflexed. The endometrium measures 7 mm, normal. Linear hyperechogenicity in endometrial cavity Small amount of fluid in the endocervical canal The right ovary is normal in appearance measuring 3.3 x 2.7 x 2.5 cm. Normal color and Doppler flow. Left ovary is normal in appearance measuring 3.1 x 2.0 x 2.1 cm normal color and Doppler flow. Small amount of fluid in the endocervical canal. IMPRESSION: IUD normally positioned Electronically authenticated by: ASHLEY GRIER Date: 2022-09-26 16:50 Normal [facility] PAP ACOG PANEL 2: 20 to 28on 07-04-2022 . . Normal [facility] Comment on above: Performed By: #### 4 [id number] #### [facility] [address] [place] [address] Dr. Emmanuel Murray Age Gdln ACOG Testing 20- Normal [facility] Comment on above: Performed By: #### 4 [id number] #### [facility] [address] [place] [address] Dr. Emmanuel Murray DIAGNOSIS: Comment Normal [facility] Comment on above: Result Comment: NEGA TIVE FOR INTRAEPITHELIAL LESION OR MALIGNANCY. Performed By: #### 4 [id number] #### [facility] [address] [place] [address] Dr. Emmanuel Murray Methodology: Comment Normal [facility] Comment on above: Result Comment: This liquid based ThinPrep(R) pap test was screened with the use of an image guided system. Performed By: #### 4 [id number] #### [facility] [address] [place] [address] Dr. Emmanuel Murray Note: Comment Normal [facility] Comment on above: Result Comment: The Pap smear is a screening test designed to aid in the detection of premalignant and malignant conditions of the uterine cervix. It is not a diagnostic procedure and should not be used as the sole means of detecting cervical cancer. Both false-positive and false-negative reports do occur. . Performed By: #### 4 [id number] #### [facility] [address] [place] [address] Dr. Emmanuel Murray Performed by: Comment Normal [facility] Comment on above: Result Comment: Lana Grier, Clergy Member (ASCP) Performed By: #### 4 [id number] #### [facility] [address] [place] [address] Dr. Emmanuel Murray Reflex Criteria: Comment Normal [facility] Comment on above: Result Comment: The HPV DNA reflex criteria were not met with this specimen result therefore, no HPV testing was performed. . Performed By: #### 4 [id number] #### [facility] [address] [place] [address] Dr. Emmanuel Murray Specimen adequacy: Comment Normal [facility] Comment on above: Result Comment: Sati sfactory for evaluation. No endocervical component is identified. Performed By: #### 4 [id number] #### [facility] [address] [place] [address] Dr. Emmanuel Murray US PELVIS AND TRANSVAGon US PELVIS AND TRANSVAG EXAMINATION: US PELVIS AND TRANSVAG HISTORY: Excessive and frequent menstruation COMPARISON: No relevant comparison available. FINDINGS: The uterus is anteverted. The uterus is normal in size, contour and echotexture measuring 10.2 x 5.0 x 6.2 cm. The endometrium measures 1.1 cm. IUD identified normally positioned with acoustic shadowing The ovaries are not visualized No free fluid IMPRESSION: Normal appearance of the uterus Nonvisualization of the ovaries Electronically authenticated by: ASHLEY GRIER Date: 2022-07-02 16:21 Normal [facility] CBC AUTO DIFFon 07-01-2022 BASO # 0.0 103/ul Normal 0.0-0.1 [facility] Comment on above: Performed By: #### C BC #### [facility] [address] [place] [address] Dr. Emmanuel Murray Basophils/100 WBC (Bld) 0.5 % Normal 0.2-2.0 [facility] Comment on above: Performed By: #### C BC #### [facility] [address] [place] [address] Dr. Emmanuel Murray EO # 0.2 103/ul Normal 0.0-0.7 [facility] Comment on above: Performed By: #### C BC #### [facility] [address] [place] [address] Dr. Emmanuel Murray Eosinophils/100 WBC (Bld) 1.8 % Normal 0.9-7.0 [facility] Comment on above: Performed By: #### C BC #### [facility] [address] [place] [address] Dr. Emmanuel Murray Erythrocyte distribution width (RBC) [Ratio] 14.3 % Normal 11.0-15.0 [facility] Comment on above: Performed By: #### C BC #### [facility] [address] [place] [address] Dr. Emmanuel Murray Hematocrit (Bld) [Volume fraction] 36.8 % Normal 36.0-48.0 [facility] Comment on above: Performed By: #### C BC #### [facility] [address] [place] [address] Dr. Emmanuel Murray Hemoglobin (Bld) [Mass/Vol] 11.5 g/dL Critically low 12.0-16.0 [facility] Comment on above: Performed By: #### C BC #### [facility] [address] [place] [address] Dr. Emmanuel Murray IG # 0.03 10e3/ul Normal 0.00-0.03 [facility] Comment on above: Performed By: #### C BC #### [facility] [address] [place] [address] Dr. Emmanuel Murray IG % 0.4 % Normal 0.0-0.5 [facility] Comment on above: Performed By: #### C BC #### [facility] [address] [place] [address] Dr. Emmanuel Murray LYMPH # 1.9 103/ul Normal 1.2-3.8 [facility] Comment on above: Performed By: #### C BC #### [facility] [address] [place] [address] Dr. Emmanuel Murray Lymphocytes/100 WBC (Bld) 23.2 % Normal 20.5-60.0 [facility] Comment on above: Performed By: #### C BC #### [facility] [address] [place] [address] Dr. Emmanuel Murray MANUAL DIFF REQ NO Normal [facility] Comment on above: Performed By: #### C BC #### [facility] [address] [place] [address] Dr. Emmanuel Murray MCH (RBC) [Entitic mass] 25.6 pg Critically low 26.7-34.0 [facility] Comment on above: Performed By: #### C BC #### [facility] [address] [place] [address] Dr. Emmanuel Murray MCHC (RBC) [Mass/Vol] 31.3 g/dL Normal 29.9-35.2 [facility] Comment on above: Performed By: #### C BC #### [facility] [address] [place] [address] Dr. Emmanuel Murray MCV (RBC) [Entitic vol] 81.8 fL Normal 81.0-99.0 [facility] Comment on above: Performed By: #### C BC #### [facility] [address] [place] [address] Dr. Emmanuel Murray MONO # 0.3 103/ul Normal 0.3-0.8 [facility] Comment on above: Performed By: #### C BC #### [facility] [address] [place] [address] Dr. Emmanuel Murray Monocytes/100 WBC (Bld) 3.5 % Normal 1.7-12.0 [facility] Comment on above: Performed By: #### C BC #### [facility] [address] [place] [address] Dr. Emmanuel Murray NEUT # 5.9 103/ul Normal 1.4-6.5 [facility] Comment on above: Performed By: #### C BC #### [facility] [address] [place] [address] Dr. Emmanuel Murray Neutrophils/100 WBC (Bld) 70.6 % Normal 43.0-75.0 [facility] Comment on above: Performed By: #### C BC #### [facility] [address] [place] [address] Dr. Emmanuel Murray Platelet mean volume (Bld) [Entitic vol] 9.5 fL Normal 9.5-13.5 [facility] Comment on above: Performed By: #### C BC #### [facility] [address] [place] [address] Dr. Emmanuel Murray PLT 292 103/ul Normal 150-450 [facility] Comment on above: Performed By: #### C BC #### [facility] [address] [place] [address] Dr. Emmanuel Murray RBC 4.50 106/ul Normal 4.20-5.40 [facility] Comment on above: Performed By: #### C BC #### [facility] [address] [place] [address] Dr. Emmanuel Murray WBC 8.4 103/ul Normal 4.0-11.0 [facility] Comment on above: Performed By: #### C BC #### [facility] [address] [place] [address] Dr. Emmanuel Murray PREG QUANT HCGon 07-01-2022 HCG QUANT <1 Normal [facility] Comment on above: Performed By: #### P REGQNT, TSH #### [facility] [address] [place] [address] Dr. Emmanuel Murray HCG RANGE SEE BELOW Normal [facility] Comment on above: Result Comment: 5-50 0.2-1 WEEK 50-500 1-2 WEEKS 100-5,000 2-3 WEEKS 500-10,000 3-4 WEEKS 1,000-50,000 4-5 WEEKS 10,000-100,000 5-6 WEEKS 15,000-200,000 6-8 WEEKS 10,000-100,000 2-3 MONTHS Performed By: #### P REGQNT, TSH #### [facility] [address] [place] [address] Dr. Emmanuel Murray PROTIMEon 07-01-2022 INR Coag (PPP) [Relative time] 1.01 {INR} Normal [facility] Comment on above: Performed By: #### P T, PTT #### [facility] [address] [place] [address] Dr. Emmanuel Murray INR GUIDELINES SEE BELOW Normal [facility] Comment on above: Result Comment: SAMIA RED INR: 2.0 - 3.0 CONDITIONS NOT LISTED BELOW 2.5 - 3.5 FOR PROSTHETIC HEART VALVE REPLACEMENT 2.5 - 3.5 RECURRENT THROMBOSIS Performed By: #### P T, PTT #### [facility] [address] [place] [id number] Dr. Emmanuel Murray PT Coag (PPP) [Time] 10.9 s Normal 9.0-11.6 [facility] Comment on above: Performed By: #### P T, PTT #### [facility] [address] [place] [address] Dr. Emmanuel Murray PTTon 07-01-2022 aPTT Coag (Bld) [Time] 27.2 s Normal 22.3-36.2 [facility] Comment on above: Performed By: #### P T, PTT #### [facility] [address] [place] [address] Dr. Emmanuel Murray TSHon 07-01-2022 TSH 1.795 uIU/mL Normal 0.358-3.740 [facility] Comment on above: Performed By: #### P REGQNT, TSH #### [facility] [address] [address] [address] Emmanuel Murray Basic Metabolic Panelon 11-09 Anion gap [Moles/Vol] 13 mmol/L 9 - 17 mmol/L [employer] Calcium [Mass/Vol] 9.2 mg/dL 8.6 - 10. 4 mg/dL [employer] Chloride [Moles/Vol] 99 mmol/L 98 - 10 7 mmol/L [employer] CO2 [Moles/Vol] 23 mmol/L 20 - 31 mmol/L [facility] [employer] Creatinine [Mass/Vol] 0.53 mg/dL 0.50 - 0.90 mg/dL [facility] [employer] GFR >60 >60 mL/min [employer] GFR Non- >60 >60 mL/min [employer] GFR/1.73 sq M.predicted MDRD (S/P/Bld) [Vol rate/Area] [facility] [employer] Comment on above: Average GFR for 20-2 9 years old: 116 mL/min/1.73sq m Chronic Kidney Disease: <60 mL/min/1.73sq m Kidney failure: <15 mL/min/1.73sq m eGFR calculated using average adult body mass. Additional eGFR calculator available at: http://www.[employer]/multiple_crcl_2011.htm Glucose [Mass/Vol] 109 mg/dL High 70 - 99 mg/dL [facility] Interpretation and review of laboratory results Abnormal [employer] Potassium [Moles/Vol] 4.2 mmol/L 3.7 - 5.3 mmol/L [facility] [employer] Sodium [Moles/Vol] 135 mmol/L 135 - 144 mmol/L [facility] [employer] Urea nitrogen (BldV) [Mass/Vol] 13 mg/dL 6 - 20 mg/dL [employer] Urea nitrogen/Creatinine (Bld) [Mass ratio] 25 High [facility] [employer] Basic Metabolic Profon 12-05 (cont.) Normal [facility] Comment on above: Result Comment: Aver age GFR for 20-29 years old: 116 mL/min/1.73sq m Chronic Kidney Disease: <60 mL/min/1.73sq m Kidney failure: <15 mL/min/1.73sq m eGFR calculated using average adult body mass. Additional eGFR calculator available at: http://www.[employer]/multiple_crcl_2012.htm Performed By: #### C BC, HEPXA, CMPX, MG, TSHX, TROPI #### [facility] [address] [place] [address] Kettle Operator Head: Dexter Fried MD #### LIPR #### [address] [address] Kettle Operator Head: Paco Tatum MD Anion gap [Moles/Vol] 13 mmol/L Normal 9-17 [facility] Comment on above: Performed By: #### C BC, HEPXA, CMPX, MG, TSHX, TROPI #### [facility] [address] [place] [address] [employer] Head: Dexter Fried MD #### LIPR #### [address] [address] Kettle Operator Head: Paco Tatum MD BUN/CRE Ratio 25 High 9-20 [facility] Comment on above: Performed By: #### C BC, HEPXA, CMPX, MG, TSHX, TROPI #### [facility] [place] [address] Kettle Operator Head: Dexter Fried MD #### LIPR #### [address] [address] Kettle Operator Head: Paco Tatum MD Calcium [Mass/Vol] 9.2 mg/dL Normal 8.6-10.4 [facility] Comment on above: Performed By: #### C BC, HEPXA, CMPX, MG, TSHX, TROPI #### [facility] [address] [place] [address] Kettle Operator Head: Dexter Fried MD #### LIPR #### [address] [address] Kettle Operator Head: Paco Tatum MD Chloride [Moles/Vol] 99 mmol/L Normal 98-107 [facility] Comment on above: Performed By: #### C BC, HEPXA, CMPX, MG, TSHX, TROPI #### [facility] [address] [place] [address] Kettle Operator Head: Dexter Fried MD #### LIPR #### [address] [address] Kettle Operator Head: Paco Tatum MD CO2 [Moles/Vol] 23 mmol/L Normal 20-31 [facility] Comment on above: Performed By: #### C BC, HEPXA, CMPX, MG, TSHX, TROPI #### [facility] [address] [place] [address] Kettle Operator Head: Dexter Fried MD #### LIPR #### [address] [address] Kettle Operator Head: Paco Tatum MD Creatinine [Mass/Vol] 0.53 mg/dL Normal 0.50-0.90 [facility] Comment on above: Performed By: #### C BC, HEPXA, CMPX, MG, TSHX, TROPI #### [facility] [address] [place] [address] Kettle Operator Head: Dexter Fried MD #### LIPR #### [address] [address] Kettle Operator Head: Paco Tatum MD GFR, Amer >60 Normal >60 [facility] Comment on above: Performed By: #### C BC, HEPXA, CMPX, MG, TSHX, TROPI #### [facility] [address] [place] [address] Kettle Operator Head: Dexter Fried MD #### LIPR #### [address] [address] Kettle Operator Head: Paco Tatum MD GFR,non Amer >60 Normal >60 [facility] Comment on above: Performed By: #### C BC, HEPXA, CMPX, MG, TSHX, TROPI #### [facility] [address] [place] [address] Kettle Operator Head: Dexter Fried MD #### LIPR #### [address] [address] Kettle Operator Head: Paco Tatum MD Glucose [Mass/Vol] 109 mg/dL High 70-99 [facility] Comment on above: Performed By: #### C BC, HEPXA, CMPX, MG, TSHX, TROPI #### [facility] [address] [place] [address] Kettle Operator Head: Dexter Fried MD #### LIPR #### [address] [address] Kettle Operator Head: Paco Tatum MD Potassium [Moles/Vol] 4.2 mmol/L Normal 3.7-5.3 [facility] Comment on above: Performed By: #### C BC, HEPXA, CMPX, MG, TSHX, TROPI #### [facility] [address] [place] [address] Kettle Operator Head: Dexter Fried MD #### LIPR #### [address] [address] Kettle Operator Head: Paco Tatum MD Sodium [Moles/Vol] 135 mmol/L Normal 135-144 [facility] Comment on above: Performed By: #### C BC, HEPXA, CMPX, MG, TSHX, TROPI #### [facility] [address] [place] [address] Kettle Operator Head: Dexter Fried MD #### LIPR #### [id number] [place], [place] [phone] Kettle Operator Head: Paco Tatum MD Urea nitrogen [Mass/Vol] 13 mg/dL Normal 6-20 [facility] Comment on above: Performed By: #### C BC, HEPXA, CMPX, MG, TSHX, TROPI #### [facility] [address] [place], [place] [phone] Kettle Operator Head: Dexter Fried MD #### LIPR #### [id number] [place] [address] Kettle Operator Head: Paco Tatum MD CBC with Auto Differentialon 12-05-2021 Absolute Eos # 0.[address] [facility] th Absolute Immature Granulocyte 0.03 [facility] Absolute Lymph # 2.57 [facility]th Absolute [place] # 0.34 [facility] lt Basophils (Bld) [#/Vol] 0.10 10*3/uL [facility] Basophils/100 WBC (Bld) 1 % 0 - 2 % [facility] Eosinophils/100 WBC (Bld) 2 % 1 - 4 % [facility] Hematocrit (Bld) [Volume fraction] 38.1 % 36.3 - 47.1 % [facility] Hemoglobin.gastroint estinal spec 1 Ql (Stl) 11.8 g/dL Low 11.9 - 15.1 g/dL [facility] Immature granulocytes/100 WBC (Bld) 0 % 0 [facility] Interpretation and review of laboratory results Abnormal [facility] Lymphocytes/100 WBC (Bld) 29 % 24 - 43 % [facility] MCH (RBC) [Entitic mass] 26.5 pg 25.2 - 33.5 pg [facility] MCHC (RBC) [Mass/Vol] 31.0 g/dL 28.4 - 34.8 g/dL [facility] MCV (RBC) [Entitic vol] 85.6 fL 82.6 - 102.9 fL [facility] Monocytes/100 WBC (Bld) 4 % 3 - 12 % [facility] NRBC Automated 0.0 0.0 per 100 WBC [facility] Platelet distribution width (Bld) [Ratio] 14.2 % 11.8 - 14.4 % [facility] Platelet mean volume (Bld) [Entitic vol] 9.3 fL 8.1 - 13.5 fL [facility] Platelets (Bld) [#/Vol] 377 10*3/uL [facility] RBC (Bld) [#/Vol] 4.45 10*6/uL 3.95 - 5.1 1 m/uL [facility] Segmented neutrophils/100 WBC (Bld) 64 % 36 - 65 % [facility] Segs Absolute [address] [facility] WBC (Bld) [#/Vol] 8.8 10*3/uL [facility] CBC with Diffon 12-05-2021 Abs. Basophil 0.10 k/uL Normal 0.00-0.20 [facility] Comment on above: Performed By: #### C BC, HEPXA, CMPX, MG, TSHX, TROPI #### [facility] [address] [place] [address] Kettle Operator Head: Dexter Fried MD #### LIPR #### [facility] [employer] [address] [place] [phone] Kettle Operator Head: Paco Tatum MD Abs.Imm.Granulocyte 0.03 k/uL Normal 0.00-0.30 [facility] Comment on above: Performed By: #### C BC, HEPXA, CMPX, MG, TSHX, TROPI #### [facility] [address] [place], [place] [phone] Kettle Operator Head: Dexter Fried MD #### LIPR #### [address] [place] [address] Kettle Operator Head: Paco Tatum MD Abs.Neutrophil (Seg) 5.62 k/uL Normal 1.50-8.10 [facility] Comment on above: Performed By: #### C BC, HEPXA, CMPX, MG, TSHX, TROPI #### [facility] [address] [place] [address] Kettle Operator Head: Dexter Fried MD #### LIPR #### [address] [address] Kettle Operator Head: Paco Tatum MD Basophils/100 WBC (Bld) 1 % Normal 0-2 [facility] Comment on above: Performed By: #### C BC, HEPXA, CMPX, MG, TSHX, TROPI #### [facility] [address] [place] [address] Kettle Operator Head: Dexter Fried MD #### LIPR #### [address] [address] Kettle Operator Head: Paco Tatum MD Eosinophils (Bld) [#/Vol] 0.14 10*3/uL Normal 0.00-0.44 [facility] Comment on above: Performed By: #### C BC, HEPXA, CMPX, MG, TSHX, TROPI #### [facility] [address] [place] [address] Kettle Operator Head: Dexter Fried MD #### LIPR #### [address] [address] Kettle Operator Head: Paco Tatum MD Eosinophils/100 WBC (Bld) 2 % Normal 1-4 [facility] Comment on above: Performed By: #### C BC, HEPXA, CMPX, MG, TSHX, TROPI #### [facility] [address] [place] [address] Kettle Operator Head: Dexter Fried MD #### LIPR #### [address] [address] Kettle Operator Head: Paco Tatum MD Erythrocyte distribution width (RBC) [Ratio] 14.2 % Normal 11.8-14.4 [facility] Comment on above: Performed By: #### C BC, HEPXA, CMPX, MG, TSHX, TROPI #### [facility] [address] [place] [address] Kettle Operator Head: Dexter Fried MD #### LIPR #### [address] [address] Kettle Operator Head: Paco Tatum MD Hematocrit (Bld) [Volume fraction] 38.1 % Normal 36.3-47.1 [facility] Comment on above: Performed By: #### C BC, HEPXA, CMPX, MG, TSHX, TROPI #### [facility] [address] [place] [address] Kettle Operator Head: Dexter Fried MD #### LIPR #### [address] [address] Kettle Operator Head: Paco Tatum MD Hemoglobin (Bld) [Mass/Vol] 11.8 g/dL Low 11.9-15.1 [facility] Comment on above: Performed By: #### C BC, HEPXA, CMPX, MG, TSHX, TROPI #### [facility] [address] [place] [address] Kettle Operator Head: Dexter Fried MD #### LIPR #### [address] [address] Kettle Operator Head: Paco Tatum MD Immature granulocytes/100 WBC (Bld) 0 % Normal 0 [facility] Comment on above: Performed By: #### C BC, HEPXA, CMPX, MG, TSHX, TROPI #### [facility] [place] [address] Kettle Operator Head: Dexter Fried MD #### LIPR #### [address] [address] Kettle Operator Head: Paco Tatum MD Lymphocytes (Bld) [#/Vol] 2.57 10*3/uL Normal 1.10-3.70 [facility] Comment on above: Performed By: #### C BC, HEPXA, CMPX, MG, TSHX, TROPI #### [facility] [address] [place] [address] Kettle Operator Head: Dexter Fried MD #### LIPR #### [address] [address] Kettle Operator Head: Paco Tatum MD Lymphocytes/100 WBC (Bld) 29 % Normal 24-43 [facility] Comment on above: Performed By: #### C BC, HEPXA, CMPX, MG, TSHX, TROPI #### [facility] [address] [place] [address] Kettle Operator Head: Dexter Fried MD #### LIPR #### [address] [address] Kettle Operator Head: Paco Tatum MD MCH (RBC) [Entitic mass] 26.5 pg Normal 25.2-33.5 [facility] Comment on above: Performed By: #### C BC, HEPXA, CMPX, MG, TSHX, TROPI #### [facility] [address] [place] [address] Kettle Operator Head: Dexter Fried MD #### LIPR #### [address] [address] Kettle Operator Head: Paco Tatum MD MCHC (RBC) [Mass/Vol] 31.0 g/dL Normal 28.4-34.8 [facility] Comment on above: Performed By: #### C BC, HEPXA, CMPX, MG, TSHX, TROPI #### [facility] [address] [place] [address] Kettle Operator Head: Dexter Fried MD #### LIPR #### [address] [address] Kettle Operator Head: Paco Tatum MD MCV (RBC) [Entitic vol] 85.6 fL Normal 82.6-102.9 [facility] Comment on above: Performed By: #### C BC, HEPXA, CMPX, MG, TSHX, TROPI #### [facility] [address] [place] [address] Kettle Operator Head: Dexter Fried MD #### LIPR #### [address] [address] Kettle Operator Head: Paco Tatum MD Monocytes (Bld) [#/Vol] 0.34 10*3/uL Normal 0.10-1.20 [facility] Comment on above: Performed By: #### C BC, HEPXA, CMPX, MG, TSHX, TROPI #### [facility] [address] [place] [address] Kettle Operator Head: Dexter Fried MD #### LIPR #### [address] [address] Kettle Operator Head: Paco Tatum MD Monocytes/100 WBC (Bld) 4 % Normal 3-12 [facility] Comment on above: Performed By: #### C BC, HEPXA, CMPX, MG, TSHX, TROPI #### [facility] [address] [place] [address] Kettle Operator Head: Dexter Fried MD #### LIPR #### [address] [address] Kettle Operator Head: Paco Tatum MD Neutrophil (Seg) 64 % Normal 36-65 [facility] Comment on above: Performed By: #### C BC, HEPXA, CMPX, MG, TSHX, TROPI #### [facility] [address] [place] [address] Kettle Operator Head: Dexter Fried MD #### LIPR #### [address] [address] Kettle Operator Head: Paco Tatum MD NRBC Automated 0.0 per 100 WBC Normal 0.0 [facility] Comment on above: Performed By: #### C BC, HEPXA, CMPX, MG, TSHX, TROPI #### [facility] [address] [place] [address] Kettle Operator Head: Dexter Fried MD #### LIPR #### [address] [address] Kettle Operator Head: Paco Tatum MD Platelet mean volume (Bld) [Entitic vol] 9.3 fL Normal 8.1-13.5 [facility] Comment on above: Performed By: #### C BC, HEPXA, CMPX, MG, TSHX, TROPI #### [facility] [address] [place] [address] Kettle Operator Head: Dexter Fried MD #### LIPR #### [address] [address] Kettle Operator Head: Paco Tatum MD Platelets (Bld) [#/Vol] 377 10*3/uL Normal 138-453 [facility] Comment on above: Performed By: #### C BC, HEPXA, CMPX, MG, TSHX, TROPI #### [facility] [address] [place] [address] Kettle Operator Head: Dexter Fried MD #### LIPR #### [address] [address] Kettle Operator Head: Paco Tatum MD RBC (Bld) [#/Vol] 4.45 10*6/uL Normal 3.95-5.11 [facility] Comment on above: Performed By: #### C BC, HEPXA, CMPX, MG, TSHX, TROPI #### [facility] [address] [place] [address] Kettle Operator Head: Dexter Fried MD #### LIPR #### [address] [address] Kettle Operator Head: Paco Tatum MD WBC (Bld) [#/Vol] 8.8 10*3/uL Normal 3.5-11.3 [facility] Comment on above: Performed By: #### C BC, HEPXA, CMPX, MG, TSHX, TROPI #### [facility] [address] [place] [address] Kettle Operator Head: Dexter Fried MD #### LIPR #### [address] [address] Kettle Operator Head: Paco Tatum MD XR CHEST PORTABLEon 12-06-19 XR CHEST PORTABLE EXAMINATION: ONE XRAY VIEW OF THE CHEST 12/05/2021 3:55 pm COMPARISON: 11/30/2021 HISTORY: ORDERING SYSTEM PROVIDED HISTORY: cough Additional signs and symptoms: cough, sob and chest pain FINDINGS: The lungs are without acute focal process. No effusion or pneumothorax. The cardiomediastinal silhouette is stable. The osseous structures are intact without acute process. IMPRESSION: Stable chest without acute process. Interpreted by: Elmira Cisneros MD Signed by: Elmira Cisneros MD 12/05/21 Final result Normal [facility] Stable chest without acute process. [facility] EXAMINATION: ONE XRAY VIEW OF THE CHEST 12/05/2021 3:55 pm COMPARISON: 11/30/2021 HISTORY: ORDERING SYSTEM PROVIDED HISTORY: cough Additional signs and symptoms: cough, sob and chest pain FINDINGS: The lungs are without acute focal process. No effusion or pneumothorax. The cardiomediastinal silhouette is stable. The osseous structures are intact without acute process. [facility] Elmira Cisneros MD - 12/05/2021 EXAMINATION: ONE XRAY VIEW OF THE CHEST 12/05/2021 3:55 pm COMPARISON: 11/30/2021 HISTORY: ORDERING SYSTEM PROVIDED HISTORY: cough Additional signs and symptoms: cough, sob and chest pain FINDINGS: The lungs are without acute focal process. No effusion or pneumothorax. The cardiomediastinal silhouette is stable. The osseous structures are intact without acute process. IMPRESSION: Stable chest without acute process. [employer] Phone: Radiology Study observation (narrative) [employer] Phone: XR CHEST PORTABLEOrdered By: Elmira Cisneros on 12-05-2021 [facility] [place] [employer] Phone: Prot. Electrophoresis, Uron 12-02-2021 Pathologist Review: ELECTRONICALLY SIGNED. DEXTER FRIED M.D. Normal [facility] Comment on above: Performed By: #### C BC, HEPXA, CMPX, MG, TSHX, TROPI #### [facility] [address] [place] [address] Kettle Operator Head: Dexter Fried MD #### LIPR #### [facility] [address] [place], [place] [phone] Kettle Operator Head: Paco Tatum MD Ur.-Prot.Elect-Inter SLIGHTLY ELEVATED TOTAL PROTEIN CONCENTRATION. PATTERN OBSERVED IS INCREASED Normal [facility] Comment on above: Result Comment: CONC . OF LOW MOLECULAR WEIGHT PROTEINS. PATTERN MAY BE SEEN WITH MINIMAL RENAL DYSFUNCTION OR WITH VARIOUS INFLAMMITORY/INFECTIOUS PROCESSES IN THE BODY (OVERFLOW PROTEINURIA). Performed By: #### C BC, HEPXA, CMPX, MG, TSHX, TROPI #### [facility] [address] [place] [address] Kettle Operator Head: Dexter Fried MD #### LIPR #### [address] [address] Kettle Operator Head: Paco Tatum MD APTTon 12-01-2021 aPTT Coag (Bld) [Time] s Critically high 23.9-33.8 [facility] Comment on above: Result Comment: IV Heparin Therapy Range: 62.0-94.0 TEST CONFIRMED Performed By: #### C BC, HEPXA, CMPX, MG, TSHX, TROPI #### [facility] [address] [place] [address] Kettle Operator Head: Dexter Fried MD #### LIPR #### [address] [address] Kettle Operator Head: Paco Tatum MD aPTT Coag (Bld) [Time] 25.9 s Normal 23.9-33.8 [facility] Comment on above: Result Comment: IV Heparin Therapy Range: 62.0-94.0 Performed By: #### C BC, HEPXA, CMPX, MG, TSHX, TROPI #### [facility] [address] [place] [address] Kettle Operator Head: Dexter Fried MD #### LIPR #### [address] [address] Kettle Operator Head: Paco Tatum MD aPTT Coag (Bld) [Time] s Critically high [facility] Comment on above: IV Heparin Therapy Range: 62.0-94.0 TEST CONFIRMED Interpretation and review of laboratory results Abnormal [facility] Anti-Xa, Unfractionated Hepa rinon 12-01-2021 Anti-XA Unfrac Heparin 0.[address] [facility] CBCon 12-01-2021 Erythrocyte distribution width (RBC) [Ratio] 14.8 % High 11.8-14.4 [facility] Comment on above: Performed By: #### C BC, HEPXA, CMPX, MG, TSHX, TROPI #### [facility] [address] [place] [address] Kettle Operator Head: Dexter Fried MD #### LIPR #### [address] [phone] Kettle Operator Head: Paco Tatum MD Hematocrit (Bld) [Volume fraction] 33.3 % Low 36.3-47.1 [facility] Comment on above: Performed By: #### C BC, HEPXA, CMPX, MG, TSHX, TROPI #### [facility] [address] [place] [address] Kettle Operator Head: Dexter Fried MD #### LIPR #### [address] [address] Kettle Operator Head: Paco Tatum MD Hemoglobin (Bld) [Mass/Vol] 10.2 g/dL Low 11.9-15.1 [facility] Comment on above: Performed By: #### C BC, HEPXA, CMPX, MG, TSHX, TROPI #### [facility] [address] [place] [address] Kettle Operator Head: Dexter Fried MD #### LIPR #### [address] [address] Kettle Operator Head: Paco Tatum MD MCH (RBC) [Entitic mass] 26.4 pg Normal 25.2-33.5 [facility] Comment on above: Performed By: #### C BC, HEPXA, CMPX, MG, TSHX, TROPI #### [facility] [address] [place] [address] Kettle Operator Head: Dexter Fried MD #### LIPR #### [address] [address] Kettle Operator Head: Paco Tatum MD MCHC (RBC) [Mass/Vol] 30.6 g/dL Normal 28.4-34.8 [facility] Comment on above: Performed By: #### C BC, HEPXA, CMPX, MG, TSHX, TROPI #### [facility] [address] [place] [address] Kettle Operator Head: Dexter Fried MD #### LIPR #### [address] [address] Kettle Operator Head: Paco Tatum MD MCV (RBC) [Entitic vol] 86.3 fL Normal 82.6-102.9 [facility] Comment on above: Performed By: #### C BC, HEPXA, CMPX, MG, TSHX, TROPI #### [facility] [address] [place] [address] Kettle Operator Head: Dexter Fried MD #### LIPR #### [address] [address] Kettle Operator Head: Paco Tatum MD NRBC Automated 0.0 per 100 WBC Normal 0.0 [facility] Comment on above: Performed By: #### C BC, HEPXA, CMPX, MG, TSHX, TROPI #### [facility] [address] [place] [address] Kettle Operator Head: Dexter Fried MD #### LIPR #### [address] [address] Kettle Operator Head: Paco Tatum MD Platelet mean volume (Bld) [Entitic vol] 8.9 fL Normal 8.1-13.5 [facility] Comment on above: Performed By: #### C BC, HEPXA, CMPX, MG, TSHX, TROPI #### [facility] [address] [place] [address] Kettle Operator Head: Dexter Fried MD #### LIPR #### [address] [address] Kettle Operator Head: Paco Tatum MD Platelets (Bld) [#/Vol] 314 10*3/uL Normal 138-453 [facility] Comment on above: Performed By: #### C BC, HEPXA, CMPX, MG, TSHX, TROPI #### [facility] [address] [place] [address] Kettle Operator Head: Dexter Fried MD #### LIPR #### [address] [address] Kettle Operator Head: Paco Tatum MD RBC (Bld) [#/Vol] 3.86 10*6/uL Low 3.95-5.11 [facility] Comment on above: Performed By: #### C BC, HEPXA, CMPX, MG, TSHX, TROPI #### [facility] [address] [place] [address] Kettle Operator Head: Dexter Fried MD #### LIPR #### [address] [address] Kettle Operator Head: Paco Tatum MD WBC (Bld) [#/Vol] 10.0 10*3/uL Normal 3.5-11.3 [facility] Comment on above: Performed By: #### C BC, HEPXA, CMPX, MG, TSHX, TROPI #### [facility] [address] [place], [place] [id number] Kettle Operator Head: Dexter Fried MD #### LIPR #### [facility] [address] [place] [address] Kettle Operator Head: Paco Tatum MD Hematocrit (Bld) [Volume fraction] 33.3 % Low 36.3 - 47.1 % [facility] Hemoglobin.gastroint estinal spec 1 Ql (Stl) 10.2 g/dL Low 11.9 - 15.1 g/dL [facility] Interpretation and review of laboratory results Abnormal [facility] MCH (RBC) [Entitic mass] 26.4 pg 25.2 - 33.5 pg [facility] MCHC (RBC) [Mass/Vol] 30.6 g/dL 28.4 - 34.8 g/dL [facility] MCV (RBC) [Entitic vol] 86.3 fL 82.6 - 102.9 fL [facility] NRBC Automated 0.0 0.0 per 100 WBC [facility] Platelet distribution width (Bld) [Ratio] 14.8 % High 11.8 - 14.4 % [facility] Platelet mean volume (Bld) [Entitic vol] 8.9 fL 8.1 - 13.5 fL [facility] Platelets (Bld) [#/Vol] 314 10*3/uL [facility] RBC (Bld) [#/Vol] 3.86 10*6/uL Low 3.95 - 5.1 1 m/uL [facility] WBC (Bld) [#/Vol] 10.0 10*3/uL [facility] Erythrocyte distribution width (RBC) [Ratio] 14.8 % High 11.8-14.4 [facility] Comment on above: Performed By: #### P T, TROPI, PTT, CBC #### [facility] [address] [place] [address] Kettle Operator Head: Dexter Fried MD Hematocrit (Bld) [Volume fraction] 33.6 % Low 36.3-47.1 [facility] Comment on above: Performed By: #### P T, TROPI, PTT, CBC #### [facility] [place] [address] Kettle Operator Head: Dexter Fried MD Hemoglobin (Bld) [Mass/Vol] 10.4 g/dL Low 11.9-15.1 [facility] Comment on above: Performed By: #### P T, TROPI, PTT, CBC #### [facility] [address] [place] [address] Kettle Operator Head: Dexter Fried MD MCH (RBC) [Entitic mass] 26.7 pg Normal 25.2-33.5 [facility] Comment on above: Performed By: #### P T, TROPI, PTT, CBC #### [facility] [address] [place] [address]. [place] [address] Kettle Operator Head: Dexter Fried MD MCHC (RBC) [Mass/Vol] 31.0 g/dL Normal 28.4-34.8 [facility] Comment on above: Performed By: #### P T, TROPI, PTT, CBC #### [facility] [address] [place] [address]. [place] [address] Kettle Operator Head: Dexter Fried MD MCV (RBC) [Entitic vol] 86.2 fL Normal 82.6-102.9 [facility] Comment on above: Performed By: #### P T, TROPI, PTT, CBC #### [facility] [address] [place] [address]. [place] [address] Kettle Operator Head: Dexter Fried MD NRBC Automated 0.0 per 100 WBC Normal 0.0 [facility] Comment on above: Performed By: #### P T, TROPI, PTT, CBC #### [facility] [address] [place] [address] Kettle Operator Head: Dexter Fried MD Platelet mean volume (Bld) [Entitic vol] 9.1 fL Normal 8.1-13.5 [facility] Comment on above: Performed By: #### P T, TROPI, PTT, CBC #### [facility] [address] [place] [address] Kettle Operator Head: Dexter Fried MD Platelets (Bld) [#/Vol] 342 10*3/uL Normal 138-453 [facility] Comment on above: Performed By: #### P T, TROPI, PTT, CBC #### [facility] [address] [facility] [place] [address] Kettle Operator Head: Dexter Fried MD RBC (Bld) [#/Vol] 3.90 10*6/uL Low 3.95-5.11 [facility] Comment on above: Performed By: #### P T, TROPI, PTT, CBC #### [facility] [address] [facility] [place] [address] Kettle Operator Head: Dexter Fried MD WBC (Bld) [#/Vol] 10.4 10*3/uL Normal 3.5-11.3 [facility] Comment on above: Performed By: #### P T, TROPI, PTT, CBC #### [facility] [place] [address] Kettle Operator Head: Dexter Fried MD Hematocrit (Bld) [Volume fraction] 33.6 % Low 36.3 - 47.1 % [facility] Hemoglobin.gastroint estinal spec 1 Ql (Stl) 10.4 g/dL Low 11.9 - 15.1 g/dL [facility] Interpretation and review of laboratory results Abnormal [facility] MCH (RBC) [Entitic mass] 26.7 pg 25.2 - 33.5 pg [facility] MCHC (RBC) [Mass/Vol] 31.0 g/dL 28.4 - 34.8 g/dL [facility] MCV (RBC) [Entitic vol] 86.2 fL 82.6 - 102.9 fL [facility] NRBC Automated 0.0 0.0 per 100 WBC [facility] Platelet distribution width (Bld) [Ratio] 14.8 % High 11.8 - 14.4 % [facility] Platelet mean volume (Bld) [Entitic vol] 9.1 fL 8.1 - 13.5 fL [facility] Platelets (Bld) [#/Vol] 342 10*3/uL [facility] RBC (Bld) [#/Vol] 3.90 10*6/uL Low 3.95 - 5.1 1 m/uL [facility] WBC (Bld) [#/Vol] 10.4 10*3/uL [facility] CT CHEST PULMONARY EMBOLISM W CONTRASTon 12-01-2021 CT CHEST PULMONARY EMBOLISM W CONTRAST EXAMINATION: CTA OF THE CHEST 11/30/2021 6:40 pm TECHNIQUE: CTA of the chest was performed after the administration of intravenous contrast. Multiplanar reformatted images are provided for review. MIP images are provided for review. Dose modulation, iterative reconstruction, and/or weight based adjustment of the mA/kV was utilized to reduce the radiation dose to as low as reasonably achievable. COMPARISON: Chest x-ray dated November 30, 2021, prior CT PA dated November 26, 2021 HISTORY: ORDERING SYSTEM PROVIDED HISTORY: Elevated D-dimer, shortness of breath, chest pain TECHNOLOGIST PROVIDED HISTORY: Elevated D-dimer, shortness of breath, chest pain Decision Support Exception - unselect if not a suspected or confirmed emergency medical condition->Emergency Medical Condition (MA) Reason for Exam: Pt c/o pain to left shoulder that radiates to her chest with shortness of breath sudden onset this morning. FINDINGS: Pulmonary Arteries: Pulmonary arteries are adequately opacified for evaluation. A filling defect is present within a distal segmental and subsegmental branches of the right lower lobe pulmonary artery. Main and central pulmonary arteries opacified normally. No evidence of RV strain is present. Main pulmonary artery is normal in caliber. Mediastinum: No evidence of mediastinal lymphadenopathy. Thyroid gland is enlarged and heterogeneous. An approximate 13 mm nodule is present within the medial portion of the right lobe, extending into the isthmus of the thyroid gland. Cardiomegaly is present. The heart and pericardium demonstrate no acute abnormality. There is no acute abnormality of the thoracic aorta. Lungs/pleura: No focal area of consolidation, pleural effusion, or pneumothorax is noted. Patchy air trapping is present within the lower lobes. Upper Abdomen: Limited images of the upper abdomen are unremarkable. Soft Tissues/Bones: No acute bone or soft tissue abnormality. IMPRESSION: 1. Acute embolus, within a distal segmental and proximal subsegmental branches, right lower lobe pulmonary artery, without evidence of RV strain 2. Cardiomegaly 3. 13 mm thyroid nodule, within the medial portion of the right lobe extending into the isthmus. Recommendation as discussed below 4. Critical results were called by Dr. Ernie Gamino to COMPUTED TOMOGRAPHY TECHNOLOGIST Bandar Vaughan on 11/30/2021 at 10:54 p.m. hours. RECOMMENDATIONS: 1.3 cm incidental right thyroid nodule with heterogeneous and enlarged thyroid. Recommend thyroid US. Reference: J Am Sukhjinder Radiol. 2015 Oct;12(2): 143-50 Interpreted by: Ernie Gamino DO Signed by: Ernie Gamino DO 11/30/21 Final result Normal [facility] Comp Metabolic Pr/rfx MGon 0 12-01-2021 (cont.) Normal [facility] Comment on above: Result Comment: Aver age GFR for 20-29 years old: 116 mL/min/1.73sq m Chronic Kidney Disease: <60 mL/min/1.73sq m Kidney failure: <15 mL/min/1.73sq m eGFR calculated using average adult body mass. Additional eGFR calculator available at: http://www.[employer].com/multiple_crcl_2011.htm Performed By: #### C BC, HEPXA, CMPX, MG, TSHX, TROPI #### [facility] [address] [place] [address] Kettle Operator Head: Dexter Fried MD #### LIPR #### [address] [address] Kettle Operator Head: Paco Tatum MD Albumin [Mass/Vol] 3.4 g/dL Low 3.5-5.2 [facility] Comment on above: Performed By: #### C BC, HEPXA, CMPX, MG, TSHX, TROPI #### [facility] [address] [place] [address] Kettle Operator Head: Dexter Fried MD #### LIPR #### [address] [address] Kettle Operator Head: Paco Tatum MD Alkaline Phos 93 U/L Normal 35-104 [facility] Comment on above: Performed By: #### C BC, HEPXA, CMPX, MG, TSHX, TROPI #### [facility] [address] [place] [address] Kettle Operator Head: Dexter Fried MD #### LIPR #### [address] [address] Kettle Operator Head: Paco Tatum MD ALT [Catalytic activity/Vol] 28 U/L Normal 5-33 [facility] Comment on above: Performed By: #### C BC, HEPXA, CMPX, MG, TSHX, TROPI #### [facility] [address] [place] [address] Kettle Operator Head: Dexter Fried MD #### LIPR #### [address] [address] Kettle Operator Head: Paco Tatum MD Anion gap [Moles/Vol] 7 mmol/L Low 9-17 [facility] Comment on above: Performed By: #### C BC, HEPXA, CMPX, MG, TSHX, TROPI #### [facility] [address] [place] [address] Kettle Operator Head: Dexter Fried MD #### LIPR #### [address] [address] Kettle Operator Head: Paco Tatum MD AST [Catalytic activity/Vol] 16 U/L Normal <32 [facility] Comment on above: Performed By: #### C BC, HEPXA, CMPX, MG, TSHX, TROPI #### [facility] [address] [place] [address] Kettle Operator Head: Dexter Fried MD #### LIPR #### [address] [address] Kettle Operator Head: Paco Tatum MD Bilirubin [Mass/Vol] 0.18 mg/dL Low 0.3-1.2 [facility] Comment on above: Performed By: #### C BC, HEPXA, CMPX, MG, TSHX, TROPI #### [facility] [place] [address] Kettle Operator Head: Dexter Fried MD #### LIPR #### [address] [address] Kettle Operator Head: Paco Tatum MD BUN/CRE Ratio 21 High 9-20 [facility] Comment on above: Performed By: #### C BC, HEPXA, CMPX, MG, TSHX, TROPI #### [facility] [address] [place] [address] Kettle Operator Head: Dexter Fried MD #### LIPR #### [address] [address] Kettle Operator Head: Paco Tatum MD Calcium [Mass/Vol] 8.5 mg/dL Low 8.6-10.4 [facility] Comment on above: Performed By: #### C BC, HEPXA, CMPX, MG, TSHX, TROPI #### [facility] [address] [place] [address] Kettle Operator Head: Dexter Fried MD #### LIPR #### [address] [address] Kettle Operator Head: Paco Tatum MD Chloride [Moles/Vol] 105 mmol/L Normal 98-107 [facility] Comment on above: Performed By: #### C BC, HEPXA, CMPX, MG, TSHX, TROPI #### [facility] [address] [place] [address] Kettle Operator Head: Dexter Fried MD #### LIPR #### [address] [address] Kettle Operator Head: Paco Tatum MD CO2 [Moles/Vol] 25 mmol/L Normal 20-31 [facility] Comment on above: Performed By: #### C BC, HEPXA, CMPX, MG, TSHX, TROPI #### [facility] [address] [place] [address] Kettle Operator Head: Dexter Fried MD #### LIPR #### [address] [address] Kettle Operator Head: Paco Tatum MD Creatinine [Mass/Vol] 0.61 mg/dL Normal 0.50-0.90 [facility] Comment on above: Performed By: #### C BC, HEPXA, CMPX, MG, TSHX, TROPI #### [facility] [address] [place] [address] Kettle Operator Head: Dexter Fried MD #### LIPR #### [address] [address] Kettle Operator Head: Paco Tatum MD GFR, Amer >60 Normal >60 [facility] Comment on above: Performed By: #### C BC, HEPXA, CMPX, MG, TSHX, TROPI #### [facility] [address] [place] [address] Kettle Operator Head: Dexter Fried MD #### LIPR #### [address] [address] Kettle Operator Head: Paco Tatum MD GFR,non Amer >60 Normal >60 [facility] Comment on above: Performed By: #### C BC, HEPXA, CMPX, MG, TSHX, TROPI #### [facility] [address] [place] [address] Kettle Operator Head: Dexter Fried MD #### LIPR #### [address] [address] Kettle Operator Head: Paco Tatum MD Glucose [Mass/Vol] 90 mg/dL Normal 70-99 [facility] Comment on above: Performed By: #### C BC, HEPXA, CMPX, MG, TSHX, TROPI #### [facility] [place] [address] Kettle Operator Head: Dexter Fried MD #### LIPR #### [address] [address] Kettle Operator Head: Paco Tatum MD Potassium [Moles/Vol] 4.0 mmol/L Normal 3.7-5.3 [facility] Comment on above: Performed By: #### C BC, HEPXA, CMPX, MG, TSHX, TROPI #### [facility] [address] [place] [address] Kettle Operator Head: Dexter Fried MD #### LIPR #### [address] [address] Kettle Operator Head: Paco Tatum MD Protein [Mass/Vol] 6.3 g/dL Low 6.4-8.3 [facility] Comment on above: Performed By: #### C BC, HEPXA, CMPX, MG, TSHX, TROPI #### [facility] [address] [place] [address] Kettle Operator Head: Dexter Fried MD #### LIPR #### [address] [address] Kettle Operator Head: Paco Tatum MD Sodium [Moles/Vol] 137 mmol/L Normal 135-144 [facility] Comment on above: Performed By: #### C BC, HEPXA, CMPX, MG, TSHX, TROPI #### [facility] [address] [place] [address] Kettle Operator Head: Dexter Fried MD #### LIPR #### [address] [address] Kettle Operator Head: Paco Tatum MD Urea nitrogen [Mass/Vol] 13 mg/dL Normal 6-20 [facility] Comment on above: Performed By: #### C BC, HEPXA, CMPX, MG, TSHX, TROPI #### [facility] [address] [place] [address] Kettle Operator Head: Dexter Fried MD #### LIPR #### [address] [address] Kettle Operator Head: Paco Tatum MD Comprehensive Metabolic Pane l w/ Reflex to MGon 12-01-2021 Albumin [Mass/Vol] 3.4 g/dL Low 3.5 - 5.2 g/dL [facility] ALP (Bld) [Catalytic activity/Vol] 93 U/L 35 - 104 U/L [employer] ALT [Catalytic activity/Vol] 28 U/L 5 - 33 U/L [facility] [employer] Anion gap [Moles/Vol] 7 mmol/L Low 9 - 17 mmol/L [facility] [employer] AST [Catalytic activity/Vol] 16 U/L <[address] [facility] [employer] Bilirubin [Mass/Vol] 0.18 mg/dL Low 0.3 - 1 .2 mg/dL [facility] [employer] Calcium [Mass/Vol] 8.5 mg/dL Low 8.6 - 10. 4 mg/dL [facility] [employer] Chloride [Moles/Vol] 105 mmol/L 98 - 10 7 mmol/L [employer] CO2 [Moles/Vol] 25 mmol/L 20 - 31 mmol/L [facility] [employer] Creatinine [Mass/Vol] 0.61 mg/dL 0.50 - 0.90 mg/dL [facility] [employer] Free PSA/Total PSA [Mass fraction] 6.3 g/dL Low 6.4 - 8.3 g/dL [facility] [employer] GFR >60 >60 mL/min [employer] GFR Non- >60 >60 mL/min [facility] [employer] GFR/1.73 sq M.predicted MDRD (S/P/Bld) [Vol rate/Area] [facility] [employer] Comment on above: Average GFR for 20-2 9 years old: 116 mL/min/1.73sq m Chronic Kidney Disease: <60 mL/min/1.73sq m Kidney failure: <15 mL/min/1.73sq m eGFR calculated using average adult body mass. Additional eGFR calculator available at: http://www.[employer]/multiple_crcl_2011.htm Glucose [Mass/Vol] 90 mg/dL 70 - 99 mg/dL [facility] [employer] Interpretation and review of laboratory results Abnormal [facility] Potassium [Moles/Vol] 4.0 mmol/L 3.7 - 5.3 mmol/L [facility] [employer] Sodium [Moles/Vol] 137 mmol/L 135 - 144 mmol/L [facility] [employer] Urea nitrogen (BldV) [Mass/Vol] 13 mg/dL 6 - 20 mg/dL [facility] Urea nitrogen/Creatinine (Bld) [Mass ratio] 21 [facility] 12-01-2021 [facility] Transthoracic Echocardiography Report (TTE) Patient Name MILLIE Date of Study 12/01/2021 SHIRA Date of 1995 Gender Female Age 26 year(s) Race Room Number 2042 Height: 61 inch, 154.94 cm Corporate ID [id number] Weight: 279 pounds, 126.6 kg # Patient Acct [id number] BSA: 2.18 m^2 BMI: 52.72 # kg/m^2 MR # [id number] Volcanology Professor Ashley Mendez Interpreting Physician Mata Mar Fellow Referring Nurse Practitioner Interpreting Referring Physician Marilee Medina Fellow Type of Study TTE procedure:2D Echocardiogram, M-Mode, Doppler, Color Doppler. Procedure Date Date: 12/01/2021 Start: 02:19 PM Study Location: [facility] Technical Quality: Adequate visualization Indications:Pulmonary embolus. History / Tech. Comments: Procedure explained to patient. Patient Status: Inpatient Height: 61 inches Weight: 279.01 pounds BSA: 2.18 m^2 BMI: 52.72 kg/m^2 CONCLUSIONS Summary Mild left ventricular hypertrophy Global left ventricular systolic function is normal Estimated ejection fraction is 65 % . No significant valvular regurgitation or stenosis seen. No pericardial effusion seen. Normal aortic root dimension. Signature FINDINGS Left Atrium Left atrium is normal in size. Left Ventricle Mild left ventricular hypertrophy Global left ventricular systolic function is normal Estimated ejection fraction is 65 % . Right Atrium Right atrium is normal in size. Right Ventricle Normal right ventricular size and function. Mitral Valve Normal mitral valve structure and function. Trivial mitral regurgitation. Aortic Valve Normal aortic valve structure and function without stenosis or regurgitation. Tricuspid Valve Normal tricuspid valve structure and function. No tricuspid regurgitation was seen. Pulmonic Valve The pulmonic valve is normal in structure. No pulmonic insufficiency. Pericardial Effusion No pericardial effusion seen. Miscellaneous Normal aortic root dimension. M-mode / 2D Measurements & Calculations: LVIDd:4.8 cm(3.7 - 5.6 cm) Diastolic Volume:111 ml LVIDs:3.1 cm(2.2 - 4.0 cm) Systolic Volume:29.8 ml IVSd:1 cm(0.6 - 1.1 cm) Aortic Root:2.7 cm(2.0 - 3.7 cm) LVPWd:1.2 cm(0.6 - 1.1 cm) LA Dimension: 3.3 cm(1.9 - 4.0 cm) Fractional Shortenin.42 % LA volume/Index: 57.4 ml /26m^2 Calculated LVEF (%): 73.15 % Mitral: Aortic Valve Area (P1/2-Time): 2.5 cm^2 Peak Velocity: 1.83 m/s Peak E-Wave: 1.44 m/s Peak Gradient: 13.4 mmHg Peak A-Wave: 0.58 m/s E/A Ratio: 2.47 Peak Gradient: 8.29 mmHg Deceleration Time: 229 msec P1/2t: 88 msec Septal Wall E' velocity:0.09 m/s Lateral Wall E' velocity:0.13 m/s [facility] Mata Mar MD - 12/01/2021 [facility] Transthoracic Echocardiography Report (TTE) Patient Name MILLIE Date of Study 12/01/2021 SHIRA Date of 1995 Gender Female Age 26 year(s) Race Room Number 2042 Height: 61 inch, 154.94 cm Corporate ID [id number] Weight: 279 pounds, 126.6 kg # Patient Acct [id number] BSA: 2.18 m^2 BMI: 52.72 # kg/m^2 MR # [id number] Volcanology Professor Ashley Mendez Interpreting Physician Mata Mar Fellow Referring Nurse Practitioner Interpreting Referring Physician Marilee Medina Fellow Type of Study TTE procedure:2D Echocardiogram, M-Mode, Doppler, Color Doppler. Procedure Date Date: 12/01/2021 Start: 02:19 PM Study Location: [facility] Technical Quality: Adequate visualization Indications:Pulmonary embolus. History / Tech. Comments: Procedure explained to patient. Patient Status: Inpatient Height: 61 inches Weight: 279.01 pounds BSA: 2.18 m^2 BMI: 52.72 kg/m^2 CONCLUSIONS Summary Mild left ventricular hypertrophy Global left ventricular systolic function is normal Estimated ejection fraction is 65 % . No significant valvular regurgitation or stenosis seen. No pericardial effusion seen. Normal aortic root dimension. Signature - - - - FINDINGS Left Atrium Left atrium is normal in size. Left Ventricle Mild left ventricular hypertrophy Global left ventricular systolic function is normal Estimated ejection fraction is 65 % . Right Atrium Right atrium is normal in size. Right Ventricle Normal right ventricular size and function. Mitral Valve Normal mitral valve structure and function. Trivial mitral regurgitation. Aortic Valve Normal aortic valve structure and function without stenosis or regurgitation. Tricuspid Valve Normal tricuspid valve structure and function. No tricuspid regurgitation was seen. Pulmonic Valve The pulmonic valve is normal in structure. No pulmonic insufficiency. Pericardial Effusion No pericardial effusion seen. Miscellaneous Normal aortic root dimension. M-mode / 2D Measurements & Calculations: LVIDd:4.8 cm(3.7 - 5.6 cm) Diastolic Volume:111 ml LVIDs:3.1 cm(2.2 - 4.0 cm) Systolic Volume:29.8 ml IVSd:1 cm(0.6 - 1.1 cm) Aortic Root:2.7 cm(2.0 - 3.7 cm) LVPWd:1.2 cm(0.6 - 1.1 cm) LA Dimension: 3.3 cm(1.9 - 4.0 cm) Fractional Shortenin.42 % LA volume/Index: 57.4 ml /26m^2 Calculated LVEF (%): 73.15 % Mitral: Aortic Valve Area (P1/2-Time): 2.5 cm^2 Peak Velocity: 1.83 m/s Peak E-Wave: 1.44 m/s Peak Gradient: 13.4 mmHg Peak A-Wave: 0.58 m/s E/A Ratio: 2.47 Peak Gradient: 8.29 mmHg Deceleration Time: 229 msec P1/2t: 88 msec Septal Wall E' velocity:0.09 m/s Lateral Wall E' velocity:0.13 m/s [facility] [place] [employer] Phone: Echocardiogram 2D W M-ModeOr dered By: Mata Kellyceci on 12-01-2021 [facility] Phone: Heparin Anti-Xaon 12-01-2021 Heparin Anti-Xa 0.50 IU/L Normal 0.30-0.70 [facility] Comment on above: Performed By: #### C BC, HEPXA, CMPX, MG, TSHX, TROPI #### [facility] [address] [place] [address] Kettle Operator Head: Dexter Fried MD #### LIPR #### [facility] [place], [place] [id number] Kettle Operator Head: Paco Tatum MD Lipid Profileon 12-01-2021 Cholesterol [Mass/Vol] 217 mg/dL High <200 [facility] Comment on above: Result Comment: Cholesterol Guidelines: <200 Desirable 200-240 Borderline >240 Undesirable Performed By: #### C BC, HEPXA, CMPX, MG, TSHX, TROPI #### [facility] [address] [place] [address] Kettle Operator Head: Dexter Fried MD #### LIPR #### [facility] [place], [place] [address] Kettle Operator Head: Paco Tatum MD Cholesterol in HDL [Mass/Vol] 49 mg/dL Normal >40 [facility] Comment on above: Result Comment: HDL Guidelines: <40 Undesirable 40-59 Borderline >59 Desirable Performed By: #### C BC, HEPXA, CMPX, MG, TSHX, TROPI #### [facility] [place] [address] Kettle Operator Head: Dexter Fried MD #### LIPR #### [address] [address] Kettle Operator Head: Paco Tatum MD Cholesterol in LDL [Mass/Vol] 112 mg/dL Normal 0-130 [facility] Comment on above: Result Comment: LDL Guidelines: <100 Desirable 100-129 Near to/above Desirable 130-159 Borderline >159 Undesirable Direct (measured) LDL and calculated LDL are not interchangeable tests. Performed By: #### C BC, HEPXA, CMPX, MG, TSHX, TROPI #### [facility] [address] [place] [address] Kettle Operator Head: Dexter Fried MD #### LIPR #### [address] [phone] Kettle Operator Head: Paco Tatum MD Cholesterol.total/Ch olesterol in HDL [Mass ratio] 4.4 {ratio} Normal <5 [facility] Comment on above: Performed By: #### C BC, HEPXA, CMPX, MG, TSHX, TROPI #### [facility] [address] [place] [address] Kettle Operator Head: Dexter Fried MD #### LIPR #### [address] [address] Kettle Operator Head: Paco Tatum MD Triglyceride [Mass/Vol] 281 mg/dL High <150 [facility] Comment on above: Result Comment: Triglyceride Guidelines: <150 Desirable 150-199 Borderline 200-499 High >499 Very high Based on AHA Guidelines for fasting triglyceride, June 2012. Performed By: #### C BC, HEPXA, CMPX, MG, TSHX, TROPI #### [facility] [address] [place], [place] [phone] Kettle Operator Head: Dexter Fried MD #### LIPR #### [facility] [address] [place], [place] [phone] Kettle Operator Head: Paco Tatum MD Lipid panel - fastingon 11-09 Cholesterol [Mass/Vol] 217 mg/dL High <200 [facility] Comment on above: Cholesterol Guidelines: <200 Desirable 200-240 Borderline >240 Undesirable Cholesterol in HDL [Mass/Vol] 49 mg/dL >40 [facility] Comment on above: HDL Guidelines: <40 Undesirable 40-59 Borderline >59 Desirable Cholesterol in LDL [Mass/Vol] 112 mg/dL 0 - 130 mg/dL [facility] Comment on above: LDL Guidelines: <100 Desirable 100-129 Near to/above Desirable 130-159 Borderline >159 Undesirable Direct (measured) LDL and calculated LDL are not interchangeable tests. Cholesterol.total/Ch olesterol in HDL [Mass ratio] 4.4 {ratio} <5 [facility] Interpretation and review of laboratory results Abnormal [facility] Triglyceride [Mass/Vol] 281 mg/dL High <150 [facility] Comment on above: Triglyceride Guidelines: <150 Desirable 150-199 Borderline 200-499 High >499 Very high Based on AHA Guidelines for fasting triglyceride, June 2012. [facility] Magnesiumon 12-01-2021 Magnesium [Mass/Vol] 1.9 mg/dL Normal 1.6-2.6 [facility] Comment on above: Performed By: #### C BC, HEPXA, CMPX, MG, TSHX, TROPI #### [facility] [address] [place], [place] [phone] Kettle Operator Head: Dexter Fried MD #### LIPR #### [facility] [address] [place], [place] [phone] Kettle Operator Head: Paco Tatum MD Magnesium [Mass/Vol] 1.9 mg/dL 1.6 - 2 .6 mg/dL [facility] No Panel Informationon 12-[address] [facility] POC Glucose Fingerstickon Glucose [Mass/Vol] 91 mg/dL 65 - 105 mg/dL [facility] PTon 12-01-2021 INR Coag (PPP) [Relative time] 1.3 {INR} Normal [facility] Comment on above: Result Comment: Non-therapeutic Range: INR = 0.9-1.2 Therapeutic Range: Moderate Anticoagulant Intensity: INR = 2.0-3.0 High Anticoagulant Intensity: INR = 2.5-3.5 Performed By: #### C BC, HEPXA, CMPX, MG, TSHX, TROPI #### [facility] [address] [place] [address] Kettle Operator Head: Dexter Fried MD #### LIPR #### [place] [phone] Kettle Operator Head: Paco Tatum MD PT Coag (PPP) [Time] 16.0 s High 11.5-14.2 [facility] Comment on above: Performed By: #### C BC, HEPXA, CMPX, MG, TSHX, TROPI #### [facility] [address] [place] [address] Kettle Operator Head: Dexter Fried MD #### LIPR #### [place] [address] Kettle Operator Head: Paco Tatum MD INR Coag (PPP) [Relative time] 1.1 {INR} Normal [facility] Comment on above: Result Comment: Non-therapeutic Range: INR = 0.9-1.2 Therapeutic Range: Moderate Anticoagulant Intensity: INR = 2.0-3.0 High Anticoagulant Intensity: INR = 2.5-3.5 Performed By: #### C BC, HEPXA, CMPX, MG, TSHX, TROPI #### [facility] [address] [place] [address] Kettle Operator Head: Dexter Fried MD #### LIPR #### [address] [address] Kettle Operator Head: Paco Tatum MD PT Coag (PPP) [Time] 14.0 s Normal 11.5-14.2 [facility] Comment on above: Performed By: #### C BC, HEPXA, CMPX, MG, TSHX, TROPI #### [facility] [address] [place] [address] Kettle Operator Head: Dexter Fried MD #### LIPR #### [address] [address] Kettle Operator Head: Paco Tatum MD Prot. Electrophoresis, Uron 12-01-2021 Total Protein Conc. 15 mg/dL Normal [facility] Comment on above: Performed By: #### C BC, HEPXA, CMPX, MG, TSHX, TROPI #### [facility] [address] [place] [address] Kettle Operator Head: Dexter Freid MD #### LIPR #### [address] [address] Kettle Operator Head: Paco Tatum MD Protein / creatinine ratio, urineon 12-01-2021 Creatinine, Ur 96.1 mg/dL 28.0 - 217.0 mg/dL [facility] Protein (U) [Mass/Vol] 15 mg/dL [facility] Comment on above: No normal range esta blished. Urine Total Protein Creatinine Ratio 0.[address] [facility] Protein,Tot,Peytona Uron 2021 Creatinine [Mass/Vol] 96.1 mg/dL Normal 28.0-217.0 [facility] Comment on above: Performed By: #### C BC, HEPXA, CMPX, MG, TSHX, TROPI #### [facility] [address] [place] [address] Kettle Operator Head: Dexter Fried MD #### LIPR #### [address] [address] Kettle Operator Head: Paco Tatum MD Tot Prot. Conc. 15 mg/dL Normal [facility] Comment on above: Result Comment: No n ormal range established. Performed By: #### C BC, HEPXA, CMPX, MG, TSHX, TROPI #### [facility] [place] [address] Kettle Operator Head: Dexter Fried MD #### LIPR #### [address] [address] Kettle Operator Head: Paco Tatum MD TP/Cre Ratio 0.16 Normal 0.00-0.20 [facility] Comment on above: Performed By: #### C BC, HEPXA, CMPX, MG, TSHX, TROPI #### [facility] [place] [address] Kettle Operator Head: Dexter Fried MD #### LIPR #### [address] [address] Kettle Operator Head: Paco Tatum MD Protime-INRon 12-01-2021 INR Coag (Bld) [Relative time] 1.3 {INR} [facility] Comment on above: Non-therapeutic Range: INR = 0.9-1.2 Therapeutic Range: Moderate Anticoagulant Intensity: INR = 2.0-3.0 High Anticoagulant Intensity: INR = 2.5-3.5 Interpretation and review of laboratory results Abnormal [facility] PT Coag (PPP) [Time] [address] [facility] TSH w/reflex to FT4on 2021 TSH Qn 2.20 m[IU]/L Normal 0.30-5.00 [facility] Comment on above: Performed By: #### C BC, HEPXA, CMPX, MG, TSHX, TROPI #### [facility] [address] [place] [address] Kettle Operator Head: Dexter Fried MD #### LIPR #### [facility] [address] [place], [place] [phone] Kettle Operator Head: Paco Tatum MD TSH Qn 2.20 m[IU]/L [facility] Troponinon 12-01-2021 Troponin, High Sens <6 Normal 0-14 [facility] Comment on above: Result Comment: High Sensitivity Troponin values cannot be compared with other Troponin methodologies. Patients with high levels of Biotin oral intake (i.e >5mg/day) may have falsely decreased Troponin levels. Samples collected within 8 hours of biotin intake may require additional information for diagnosis. Performed By: #### C BC, HEPXA, CMPX, MG, TSHX, TROPI #### [facility] [address] [place] [address] Kettle Operator Head: Dexter Fried MD #### LIPR #### [facility] [address] [place], [place] [phone] Kettle Operator Head: Paco Tatum MD Troponin, High Sensitivity <6 0 - 14 ng/L [facility] Comment on above: High Sensitivity Troponin values cannot be compared with other Troponin methodologies. Patients with high levels of Biotin oral intake (i.e >5mg/day) may have falsely decreased Troponin levels. Samples collected within 8 hours of biotin intake may require additional information for diagnosis. Troponin, High Sens <6 Normal 0-14 [facility] Comment on above: Result Comment: High Sensitivity Troponin values cannot be compared with other Troponin methodologies. Patients with high levels of Biotin oral intake (i.e >5mg/day) may have falsely decreased Troponin levels. Samples collected within 8 hours of biotin intake may require additional information for diagnosis. Performed By: #### C BC, HEPXA, CMPX, MG, TSHX, TROPI #### [facility] [address] [place] [address] Kettle Operator Head: Dexter Fried MD #### LIPR #### [place] [id number] [place], [place] [phone] Kettle Operator Head: Paco Tatum MD Troponin, High Sensitivity <6 0 - 14 ng/L [facility] Comment on above: High Sensitivity Troponin values cannot be compared with other Troponin methodologies. Patients with high levels of Biotin oral intake (i.e >5mg/day) may have falsely decreased Troponin levels. Samples collected within 8 hours of biotin intake may require additional information for diagnosis. [facility] Troponin, High Sens <6 Normal 0-14 [facility] Comment on above: Result Comment: High Sensitivity Troponin values cannot be compared with other Troponin methodologies. Patients with high levels of Biotin oral intake (i.e >5mg/day) may have falsely decreased Troponin levels. Samples collected within 8 hours of biotin intake may require additional information for diagnosis. Performed By: #### C BC, HEPXA, CMPX, MG, TSHX, TROPI #### [facility] [address] [place] [address] Kettle Operator Head: Dexter Fried MD #### LIPR #### [address] [phone] Kettle Operator Head: Paco Tatum MD APTTon 11-30-2021 aPTT Coag (Bld) [Time] 25.9 s [facility] Comment on above: IV Heparin Therapy Range: 62.0-94.0 [facility] Brain Natri. Peptideon 11-30 Natriuretic peptide B (Bld) [Mass/Vol] 31 pg/mL Normal <300 [facility] Comment on above: Result Comment: An age-independent cutoff point of 300 pg/ml has a 98% negative predictive value excluding acute heart failure. Performed By: #### C BC, HEPXA, CMPX, MG, TSHX, TROPI #### [facility] [address] [place] [address] Kettle Operator Head: Dexter Fried MD #### LIPR #### [facility] [address] [place] [address] Kettle Operator Head: Paco Tatum MD Brain Natriuretic Peptideon 11-30-2021 Natriuretic peptide B (Bld) [Mass/Vol] 31 pg/mL <[address] [facility] [employer] Comment on above: An age-independent cutoff point of 300 pg/ml has a 98% negative predictive value excluding acute heart failure. CBC with Auto Differentialon 11-30-2021 Absolute Eos # 0.[address] [facility] th Absolute Immature Granulocyte 0.11 [facility] [employer] Absolute Lymph # 2.99 [employer] [facility] alth [facility] [place] [facility] Basophils (Bld) [#/Vol] 0.08 10*3/uL [employer] Basophils/100 WBC (Bld) 1 % 0 - 2 % [employer] Eosinophils/100 WBC (Bld) 2 % 1 - 4 % [employer] Hematocrit (Bld) [Volume fraction] 35.0 % Low 36.3 - 47.1 % [employer] Hemoglobin.gastroint estinal spec 1 Ql (Stl) 10.8 g/dL Low 11.9 - 15.1 g/dL [employer] Immature granulocytes/100 WBC (Bld) 1 % High 0 [facility] Interpretation and review of laboratory results Abnormal [employer] Lymphocytes/100 WBC (Bld) 29 % 24 - 43 % [facility] MCH (RBC) [Entitic mass] 26.6 pg 25.2 - 33.5 pg [facility] MCHC (RBC) [Mass/Vol] 30.9 g/dL 28.4 - 34.8 g/dL [facility] MCV (RBC) [Entitic vol] 86.2 fL 82.6 - 102.9 fL [employer] Monocytes/100 WBC (Bld) 6 % 3 - 12 % [employer] NRBC Automated 0.0 0.0 per 100 WBC [employer] Platelet distribution width (Bld) [Ratio] 14.8 % High 11.8 - 14.4 % [employer] Platelet mean volume (Bld) [Entitic vol] 9.1 fL 8.1 - 13.5 fL [employer] Platelets (Bld) [#/Vol] 351 10*3/uL [facility] RBC (Bld) [#/Vol] 4.06 10*6/uL 3.95 - 5.1 1 m/uL [facility] RBC (Bld) [#/Vol] ANISOCYTOSIS PRESENT [facility] Segmented neutrophils/100 WBC (Bld) 61 % 36 - 65 % [facility] Segs [facility] [address] [facility] W[facility] (Bld) [#/Vol] 10.2 10*3/uL [facility] CBC with Diffon 11-30-2021 Abs. Basophil 0.08 k/uL Normal 0.00-0.20 [facility] Comment on above: Performed By: #### C BC, HEPXA, CMPX, MG, TSHX, TROPI #### [facility] [address] [place] [address] Kettle Operator Head: Dexter Fried MD #### LIPR #### [address] [address] Kettle Operator Head: Paco Tatum MD Abs.Imm.Granulocyte 0.11 k/uL Normal 0.00-0.30 [facility] Comment on above: Performed By: #### C BC, HEPXA, CMPX, MG, TSHX, TROPI #### [facility] [address] [place] [address] Kettle Operator Head: Dexter Fried MD #### LIPR #### [address] [address] Kettle Operator Head: Paco Tatum MD Abs.Neutrophil (Seg) 6.17 k/uL Normal 1.50-8.10 [facility] Comment on above: Performed By: #### C BC, HEPXA, CMPX, MG, TSHX, TROPI #### [facility] [address] [place] [address] Kettle Operator Head: Dexter Fried MD #### LIPR #### [address] [address] Kettle Operator Head: Paco Tatum MD Basophils/100 WBC (Bld) 1 % Normal 0-2 [facility] Comment on above: Performed By: #### C BC, HEPXA, CMPX, MG, TSHX, TROPI #### [facility] [place] [address] Kettle Operator Head: Dexter Fried MD #### LIPR #### [address] [address] Kettle Operator Head: Paco Tatum MD Eosinophils (Bld) [#/Vol] 0.22 10*3/uL Normal 0.00-0.44 [facility] Comment on above: Performed By: #### C BC, HEPXA, CMPX, MG, TSHX, TROPI #### [facility] [address] [place] [address] Kettle Operator Head: Dexter Fried MD #### LIPR #### [address] [address] Kettle Operator Head: Paco Tatum MD Eosinophils/100 WBC (Bld) 2 % Normal 1-4 [facility] Comment on above: Performed By: #### C BC, HEPXA, CMPX, MG, TSHX, TROPI #### [facility] [address] [place] [address] Kettle Operator Head: Dexter Fried MD #### LIPR #### [address] [address] Kettle Operator Head: Paco Tatum MD Erythrocyte distribution width (RBC) [Ratio] 14.8 % High 11.8-14.4 [facility] Comment on above: Performed By: #### C BC, HEPXA, CMPX, MG, TSHX, TROPI #### [facility] [address] [place] [address] Kettle Operator Head: Dexter Fried MD #### LIPR #### [address] [address] Kettle Operator Head: Paco Tatum MD Hematocrit (Bld) [Volume fraction] 35.0 % Low 36.3-47.1 [facility] Comment on above: Performed By: #### C BC, HEPXA, CMPX, MG, TSHX, TROPI #### [facility] [address] [place] [address] Kettle Operator Head: Dexter Fried MD #### LIPR #### [address] [address] Kettle Operator Head: Paco Tatum MD Hemoglobin (Bld) [Mass/Vol] 10.8 g/dL Low 11.9-15.1 [facility] Comment on above: Performed By: #### C BC, HEPXA, CMPX, MG, TSHX, TROPI #### [facility] [address] [place] [address] Kettle Operator Head: Dexter Fried MD #### LIPR #### [address] [address] Kettle Operator Head: Paco Tatum MD Immature granulocytes/100 WBC (Bld) 1 % High 0 [facility] Comment on above: Performed By: #### C BC, HEPXA, CMPX, MG, TSHX, TROPI #### [facility] [address] [place] [address] Kettle Operator Head: Dexter Fried MD #### LIPR #### [address] [address] Kettle Operator Head: Paco Tatum MD Lymphocytes (Bld) [#/Vol] 2.99 10*3/uL Normal 1.10-3.70 [facility] Comment on above: Performed By: #### C BC, HEPXA, CMPX, MG, TSHX, TROPI #### [facility] [address] [place] [address] Kettle Operator Head: Dexter Fried MD #### LIPR #### [address] [address] Kettle Operator Head: Pcao Tatum MD Lymphocytes/100 WBC (Bld) 29 % Normal 24-43 [facility] Comment on above: Performed By: #### C BC, HEPXA, CMPX, MG, TSHX, TROPI #### [facility] [address] [place] [address] Kettle Operator Head: Dexter Fried MD #### LIPR #### [address] [address] Kettle Operator Head: Paco Tatum MD MCH (RBC) [Entitic mass] 26.6 pg Normal 25.2-33.5 [facility] Comment on above: Performed By: #### C BC, HEPXA, CMPX, MG, TSHX, TROPI #### [facility] [place] [address] Kettle Operator Head: Dexter Fried MD #### LIPR #### [address] [address] Kettle Operator Head: Paco Tatum MD MCHC (RBC) [Mass/Vol] 30.9 g/dL Normal 28.4-34.8 [facility] Comment on above: Performed By: #### C BC, HEPXA, CMPX, MG, TSHX, TROPI #### [facility] [place] [address] Kettle Operator Head: Dexter Fried MD #### LIPR #### [address] [address] Kettle Operator Head: Paco Tatum MD MCV (RBC) [Entitic vol] 86.2 fL Normal 82.6-102.9 [facility] Comment on above: Performed By: #### C BC, HEPXA, CMPX, MG, TSHX, TROPI #### [facility] [address] [place] [address] Kettle Operator Head: Dexter Fried MD #### LIPR #### [address] [address] Kettle Operator Head: Paco Tatum MD Monocytes (Bld) [#/Vol] 0.61 10*3/uL Normal 0.10-1.20 [facility] Comment on above: Performed By: #### C BC, HEPXA, CMPX, MG, TSHX, TROPI #### [facility] [address] [place] [address] Kettle Operator Head: Dexter Fried MD #### LIPR #### [address] [address] Kettle Operator Head: Paco Tatum MD Monocytes/100 WBC (Bld) 6 % Normal 3-12 [facility] Comment on above: Performed By: #### C BC, HEPXA, CMPX, MG, TSHX, TROPI #### [facility] [address] [place] [address] Kettle Operator Head: Dexter Fried MD #### LIPR #### [address] [address] Kettle Operator Head: Paco Tatum MD Neutrophil (Seg) 61 % Normal 36-65 [facility] Comment on above: Performed By: #### C BC, HEPXA, CMPX, MG, TSHX, TROPI #### [facility] [address] [place] [address] Kettle Operator Head: Dexter Fried MD #### LIPR #### [address] [address] Kettle Operator Head: Paco Tatum MD NRBC Automated 0.0 per 100 WBC Normal 0.0 [facility] Comment on above: Performed By: #### C BC, HEPXA, CMPX, MG, TSHX, TROPI #### [facility] [address] [place] [address] Kettle Operator Head: Dexter Fried MD #### LIPR #### [address] [address] Kettle Operator Head: Paco Tatum MD Platelet mean volume (Bld) [Entitic vol] 9.1 fL Normal 8.1-13.5 [facility] Comment on above: Performed By: #### C BC, HEPXA, CMPX, MG, TSHX, TROPI #### [facility] [address] [place] [address] Kettle Operator Head: Dexter Fried MD #### LIPR #### [address] [address] Kettle Operator Head: Paco Tatum MD Platelets (Bld) [#/Vol] 351 10*3/uL Normal 138-453 [facility] Comment on above: Performed By: #### C BC, HEPXA, CMPX, MG, TSHX, TROPI #### [facility] [address] [place] [address] Kettle Operator Head: Dexter Fried MD #### LIPR #### [address] [address] Kettle Operator Head: Paco Tatum MD RBC (Bld) [#/Vol] 4.06 10*6/uL Normal 3.95-5.11 [facility] Comment on above: Performed By: #### C BC, HEPXA, CMPX, MG, TSHX, TROPI #### [facility] [address] [place] [address] Kettle Operator Head: Dexter Fried MD #### LIPR #### [address] [address] Kettle Operator Head: Paco Tatum MD RBC morphology finding Nom (Bld) ANISOCYTOSIS PRESENT Normal [facility] Comment on above: Performed By: #### C BC, HEPXA, CMPX, MG, TSHX, TROPI #### [facility] [address] [place] [address] Kettle Operator Head: Dexter Fried MD #### LIPR #### [address] [address] Kettle Operator Head: Paco Tatum MD WBC (Bld) [#/Vol] 10.2 10*3/uL Normal 3.5-11.3 [facility] Comment on above: Performed By: #### C BC, HEPXA, CMPX, MG, TSHX, TROPI #### [facility] [address] [place] [address] Kettle Operator Head: Dexter Fried MD #### LIPR #### [address] [address] Kettle Operator Head: Paco Tatum MD CT CHEST PULMONARY EMBOLISM W CONTRASTon 11-30-2021 1. Acute embolus, within a distal segmental and proximal subsegmental branches, right lower lobe pulmonary artery, without evidence of RV strain 2. Cardiomegaly 3. 13 mm thyroid nodule, within the medial portion of the right lobe extending into the isthmus. Recommendation as discussed below 4. Critical results were called by Dr. Ernie Gamino to COMPUTED TOMOGRAPHY TECHNOLOGIST Bandar Vaughan on 11/30/2021 at 10:54 p.m. hours. RECOMMENDATIONS: 1.3 cm incidental right thyroid nodule with heterogeneous and enlarged thyroid. Recommend thyroid US. Reference: J Am Sukhjinder Radiol. 2014;12(2): 143-50 [facility] EXAMINATION: CTA OF THE CHEST 11/30/2021 6:40 pm TECHNIQUE: CTA of the chest was performed after the administration of intravenous contrast. Multiplanar reformatted images are provided for review. MIP images are provided for review. Dose modulation, iterative reconstruction, and/or weight based adjustment of the mA/kV was utilized to reduce the radiation dose to as low as reasonably achievable. COMPARISON: Chest x-ray dated November 30, 2021, prior CT PA dated November 26, 2021 HISTORY: ORDERING SYSTEM PROVIDED HISTORY: Elevated D-dimer, shortness of breath, chest pain TECHNOLOGIST PROVIDED HISTORY: Elevated D-dimer, shortness of breath, chest pain Decision Support Exception - unselect if not a suspected or confirmed emergency medical condition->Emergency Medical Condition (MA) Reason for Exam: Pt c/o pain to left shoulder that radiates to her chest with shortness of breath sudden onset this morning. FINDINGS: Pulmonary Arteries: Pulmonary arteries are adequately opacified for evaluation. A filling defect is present within a distal segmental and subsegmental branches of the right lower lobe pulmonary artery. Main and central pulmonary arteries opacified normally. No evidence of RV strain is present. Main pulmonary artery is normal in caliber. Mediastinum: No evidence of mediastinal lymphadenopathy. Thyroid gland is enlarged and heterogeneous. An approximate 13 mm nodule is present within the medial portion of the right lobe, extending into the isthmus of the thyroid gland. Cardiomegaly is present. The heart and pericardium demonstrate no acute abnormality. There is no acute abnormality of the thoracic aorta. Lungs/pleura: No focal area of consolidation, pleural effusion, or pneumothorax is noted. Patchy air trapping is present within the lower lobes. Upper Abdomen: Limited images of the upper abdomen are unremarkable. Soft Tissues/Bones: No acute bone or soft tissue abnormality. [facility] Ernie Gamino, - 11/30/2021 EXAMINATION: CTA OF THE CHEST 11/30/2021 6:40 pm TECHNIQUE: CTA of the chest was performed after the administration of intravenous contrast. Multiplanar reformatted images are provided for review. MIP images are provided for review. Dose modulation, iterative reconstruction, and/or weight based adjustment of the mA/kV was utilized to reduce the radiation dose to as low as reasonably achievable. COMPARISON: Chest x-ray dated November 30, 2021, prior CT PA dated November 26, 2021 HISTORY: ORDERING SYSTEM PROVIDED HISTORY: Elevated D-dimer, shortness of breath, chest pain TECHNOLOGIST PROVIDED HISTORY: Elevated D-dimer, shortness of breath, chest pain Decision Support Exception - unselect if not a suspected or confirmed emergency medical condition->Emergency Medical Condition (MA) Reason for Exam: Pt c/o pain to left shoulder that radiates to her chest with shortness of breath sudden onset this morning. FINDINGS: Pulmonary Arteries: Pulmonary arteries are adequately opacified for evaluation. A filling defect is present within a distal segmental and subsegmental branches of the right lower lobe pulmonary artery. Main and central pulmonary arteries opacified normally. No evidence of RV strain is present. Main pulmonary artery is normal in caliber. Mediastinum: No evidence of mediastinal lymphadenopathy. Thyroid gland is enlarged and heterogeneous. An approximate 13 mm nodule is present within the medial portion of the right lobe, extending into the isthmus of the thyroid gland. Cardiomegaly is present. The heart and pericardium demonstrate no acute abnormality. There is no acute abnormality of the thoracic aorta. Lungs/pleura: No focal area of consolidation, pleural effusion, or pneumothorax is noted. Patchy air trapping is present within the lower lobes. Upper Abdomen: Limited images of the upper abdomen are unremarkable. Soft Tissues/Bones: No acute bone or soft tissue abnormality. IMPRESSION: 1. Acute embolus, within a distal segmental and proximal subsegmental branches, right lower lobe pulmonary artery, without evidence of RV strain 2. Cardiomegaly 3. 13 mm thyroid nodule, within the medial portion of the right lobe extending into the isthmus. Recommendation as discussed below 4. Critical results were called by Dr. Ernie Gamino to DEREK Vaughan on 11/30/2021 at 10:54 p.m. hours. RECOMMENDATIONS: 1.3 cm incidental right thyroid nodule with heterogeneous and enlarged thyroid. Recommend thyroid US. Reference: J Am Sukhjinder Radiol. 2015 Oct;12(2): 143-[address] [facility] [employer] Phone: [facility] [employer] Work Phone: Radiology Study observation (narrative) [facility] [employer] Phone: Comp Metabolic Pr/rfx MGon 0 11-30-2021 (cont.) Normal [facility] Comment on above: Result Comment: Aver age GFR for 20-29 years old: 116 mL/min/1.73sq m Chronic Kidney Disease: <60 mL/min/1.73sq m Kidney failure: <15 mL/min/1.73sq m eGFR calculated using average adult body mass. Additional eGFR calculator available at: http://www.[employer]/multiple_crcl_2012.htm Performed By: #### C BC, HEPXA, CMPX, MG, TSHX, TROPI #### [facility] [place] [address] Kettle Operator Head: Dexter Fried MD #### LIPR #### [address] [id number] Kettle Operator Head: Paco Tatum MD Albumin [Mass/Vol] 3.7 g/dL Normal 3.5-5.2 [facility] Comment on above: Performed By: #### C BC, HEPXA, CMPX, MG, TSHX, TROPI #### [facility] [address] [place] [address] Kettle Operator Head: Dexter Fried MD #### LIPR #### [address] [id number] Kettle Operator Head: Paco Tatum MD Alkaline Phos 102 U/L Normal 35-104 [facility] Comment on above: Performed By: #### C BC, HEPXA, CMPX, MG, TSHX, TROPI #### [facility] [address] [place] [address] Kettle Operator Head: Dexter Fried MD #### LIPR #### [address] [address] Kettle Operator Head: Paco Tatum MD ALT [Catalytic activity/Vol] 31 U/L Normal 5-33 [facility] Comment on above: Performed By: #### C BC, HEPXA, CMPX, MG, TSHX, TROPI #### [facility] [address] [place] [address] Kettle Operator Head: Dexter Fried MD #### LIPR #### [address] [address] Kettle Operator Head: Paco Tatum MD Anion gap [Moles/Vol] 10 mmol/L Normal 9-17 [facility] Comment on above: Performed By: #### C BC, HEPXA, CMPX, MG, TSHX, TROPI #### [facility] [address] [place] [address] Kettle Operator Head: Dexter Fried MD #### LIPR #### [address] [address] Kettle Operator Head: Paco Tatum MD AST [Catalytic activity/Vol] 15 U/L Normal <32 [facility] Comment on above: Performed By: #### C BC, HEPXA, CMPX, MG, TSHX, TROPI #### [facility] [address] [place] [address] Kettle Operator Head: Dexter Fried MD #### LIPR #### [address] [address] Kettle Operator Head: Paco Tatum MD Bilirubin [Mass/Vol] 0.21 mg/dL Low 0.3-1.2 [facility] Comment on above: Performed By: #### C BC, HEPXA, CMPX, MG, TSHX, TROPI #### [facility] [address] [place] [address] Kettle Operator Head: Dexter Fried MD #### LIPR #### [address] [address] Kettle Operator Head: Paco Tatum MD BUN/CRE Ratio 29 High 9-20 [facility] Comment on above: Performed By: #### C BC, HEPXA, CMPX, MG, TSHX, TROPI #### [facility] [address] [place] [address] Kettle Operator Head: Dexter Fried MD #### LIPR #### [address] [address] Kettle Operator Head: Paco Tatum MD Calcium [Mass/Vol] 9.0 mg/dL Normal 8.6-10.4 [facility] Comment on above: Performed By: #### C BC, HEPXA, CMPX, MG, TSHX, TROPI #### [facility] [address] [place] [address] Kettle Operator Head: Dexter Fried MD #### LIPR #### [address] [address] Kettle Operator Head: Paco Tatum MD Chloride [Moles/Vol] 101 mmol/L Normal 98-107 [facility] Comment on above: Performed By: #### C BC, HEPXA, CMPX, MG, TSHX, TROPI #### [facility] [address] [place] [address] Kettle Operator Head: Dexter Fried MD #### LIPR #### [address] [address] Kettle Operator Head: Paco Tatum MD CO2 [Moles/Vol] 23 mmol/L Normal 20-31 [facility] Comment on above: Performed By: #### C BC, HEPXA, CMPX, MG, TSHX, TROPI #### [facility] [address] [place] [address] Kettle Operator Head: Dexter Fried MD #### LIPR #### [address] [address] Kettle Operator Head: aPco Tatum MD Creatinine [Mass/Vol] 0.55 mg/dL Normal 0.50-0.90 [facility] Comment on above: Performed By: #### C BC, HEPXA, CMPX, MG, TSHX, TROPI #### [facility] [address] [place] [address] Kettle Operator Head: Dexter Fried MD #### LIPR #### [address] [address] Kettle Operator Head: Paco Tatum MD GFR, Amer >60 Normal >60 [facility] Comment on above: Performed By: #### C BC, HEPXA, CMPX, MG, TSHX, TROPI #### [facility] [address] [place] [address] Kettle Operator Head: Dexter Fried MD #### LIPR #### [address] [address] Kettle Operator Head: Paco Tatum MD GFR,non Amer >60 Normal >60 [facility] Comment on above: Performed By: #### C BC, HEPXA, CMPX, MG, TSHX, TROPI #### [facility] [address] [place] [address] Kettle Operator Head: Dexter Fried MD #### LIPR #### [address] [address] Kettle Operator Head: Paco Tatum MD Glucose [Mass/Vol] 101 mg/dL High 70-99 [facility] Comment on above: Performed By: #### C BC, HEPXA, CMPX, MG, TSHX, TROPI #### [facility] [place] [address] Kettle Operator Head: Dexter Fried MD #### LIPR #### [address] [address] Kettle Operator Head: Paco Tatum MD Potassium [Moles/Vol] 4.0 mmol/L Normal 3.7-5.3 [facility] Comment on above: Performed By: #### C BC, HEPXA, CMPX, MG, TSHX, TROPI #### [facility] [address] [place] [address] Kettle Operator Head: Dexter Fried MD #### LIPR #### [address] [address] Kettle Operator Head: Paco Tatum MD Protein [Mass/Vol] 6.9 g/dL Normal 6.4-8.3 [facility] Comment on above: Performed By: #### C BC, HEPXA, CMPX, MG, TSHX, TROPI #### [facility] [address] [place] [address] Kettle Operator Head: Dexter Fried MD #### LIPR #### [address] [address] Kettle Operator Head: Paco Tatum MD Sodium [Moles/Vol] 134 mmol/L Low 135-144 [facility] Comment on above: Performed By: #### C BC, HEPXA, CMPX, MG, TSHX, TROPI #### [facility] [address] [place], [place] [phone] Kettle Operator Head: Dexter Fried MD #### LIPR #### [facility] [address] [place], [place] [phone] Kettle Operator Head: Paco Tatum MD Urea nitrogen [Mass/Vol] 16 mg/dL Normal 6-20 [facility] Comment on above: Performed By: #### C BC, HEPXA, CMPX, MG, TSHX, TROPI #### [facility] [address] [place], [place] [phone] Kettle Operator Head: Dexter Fried MD #### LIPR #### [facility] [address] [place], [place] [address] Kettle Operator Head: Paco Tatum MD Comprehensive Metabolic Pane l w/ Reflex to on 11-30-2021 Albumin [Mass/Vol] 3.7 g/dL 3.5 - 5.2 g/dL [facility] ALP (Bld) [Catalytic activity/Vol] 102 U/L 35 - 104 U/L [facility] ALT [Catalytic activity/Vol] 31 U/L 5 - 33 U/L [facility] Anion gap [Moles/Vol] 10 mmol/L 9 - 17 mmol/L [facility] AST [Catalytic activity/Vol] 15 U/L <32 [facility] Bilirubin [Mass/Vol] 0.21 mg/dL Low 0.3 - 1 .2 mg/dL [facility] Calcium [Mass/Vol] 9.0 mg/dL 8.6 - 10. 4 mg/dL [facility] Chloride [Moles/Vol] 101 mmol/L 98 - 10 7 mmol/L [facility] CO2 [Moles/Vol] 23 mmol/L 20 - 31 mmol/L [facility] Creatinine [Mass/Vol] 0.55 mg/dL 0.50 - 0.90 mg/dL [facility] Free PSA/Total PSA [Mass fraction] 6.9 g/dL 6.4 - 8.3 g/dL [facility] GFR >60 >60 mL/min [facility] GFR Non- >60 >60 mL/min [facility] [employer] GFR/1.73 sq M.predicted MDRD (S/P/Bld) [Vol rate/Area] [facility] Comment on above: Average GFR for 20-2 9 years old: 116 mL/min/1.73sq m Chronic Kidney Disease: <60 mL/min/1.73sq m Kidney failure: <15 mL/min/1.73sq m eGFR calculated using average adult body mass. Additional eGFR calculator available at: http://www.[employer]/multiple_crcl_2011.htm Glucose [Mass/Vol] 101 mg/dL High 70 - 99 mg/dL [facility] Potassium [Moles/Vol] 4.0 mmol/L 3.7 - 5.3 mmol/L [facility] [employer] Sodium [Moles/Vol] 134 mmol/L Low 135 - 144 mmol/L [facility] Urea nitrogen (BldV) [Mass/Vol] 16 mg/dL 6 - 20 mg/dL [facility] Urea nitrogen/Creatinine (Bld) [Mass ratio] [address] [facility] [employer] D-Dimer Teston 11-30-2021 D-Dimer Test 1.73 mg/L FEU High 0.00-0.59 [facility] Comment on above: Result Comment: When combined with a low clinical probability, a D dimer value of <0.50 mg/L FEU is considered negative for DVT and PE (negative predictive value of 98%, sensitivity of 97%). If this test is not being used to help rule out DVT and PE, then the following reference range should be utilized: 0.00 - 0.59 mg/L FEU. The D-Dimer assay is intended for use as an aid in the diagnosis of venous thromboembolism (DVT and PE) and the results should be interpreted in conjunction with the patient's medical history, clinical presentation, and other findings. Elevated levels of D-dimer activity can be seen in any state of coagulation activation and is not recommended in patients with therapeutic dose anticoagulant therapy for >24 hours, fibrinolytic therapy within the previous 7 days, trauma or surgery within the previous 4 weeks, disseminated malignancies, aortic aneurysm, sepsis, severe infections, pneumonia, severe skin infections, liver cirrhosis, advanced age, coronary disease, diabetes, and . A very low percentage of patients with DVT may yield D-dimer results below the cutoff of 0.5 mg/L FEU. This is known to be more prevalent in patients with distal DVT. Performed By: #### C BC, HEPXA, CMPX, MG, TSHX, TROPI #### [facility] [address] [place], [place] [id number] Kettle Operator Head: Dexter Fried MD #### LIPR #### [facility] [address] [place], [place] [phone] Kettle Operator Head: Paco Tatum MD D-Dimer, Quantitativeon 11-09 D-Dimer, Quant 1.73 [facility] Comment on above: When combined with a low clinical probability, a D dimer value of <0.50 mg/L FEU is considered negative for DVT and PE (negative predictive value of 98%, sensitivity of 97%). If this test is not being used to help rule out DVT and PE, then the following reference range should be utilized: 0.00 - 0.59 mg/L FEU. The D-Dimer assay is intended for use as an aid in the diagnosis of venous thromboembolism (DVT and PE) and the results should be interpreted in conjunction with the patient's medical history, clinical presentation, and other findings. Elevated levels of D-dimer activity can be seen in any state of coagulation activation and is not recommended in patients with therapeutic dose anticoagulant therapy for >24 hours, fibrinolytic therapy within the previous 7 days, trauma or surgery within the previous 4 weeks, disseminated malignancies, aortic aneurysm, sepsis, severe infections, pneumonia, severe skin infections, liver cirrhosis, advanced age, coronary disease, diabetes, and . A very low percentage of patients with DVT may yield D-dimer results below the cutoff of 0.5 mg/L FEU. This is known to be more prevalent in patients with distal DVT. Interpretation and review of laboratory results Abnormal [facility] Lactate Dehydrogenaseon 11-09 LDH [Catalytic activity/Vol] 171 U/L Normal 135-214 [facility] Comment on above: Performed By: #### C BC, HEPXA, CMPX, MG, TSHX, TROPI #### [facility] [address] [place] [address] Kettle Operator Head: Dexter Fried MD #### LIPR #### [id number] [place] [address] Kettle Operator Head: Paco Tatum MD LD 171 U/L 135 - 214 U/L [facility] Magnesiumon 11-30-2021 Magnesium [Mass/Vol] 1.9 mg/dL Normal 1.6-2.6 [facility] Comment on above: Performed By: #### C BC, HEPXA, CMPX, MG, TSHX, TROPI #### [facility] [address] [place] [address] Kettle Operator Head: Dexter Fried MD #### LIPR #### [address] [address] Kettle Operator Head: Paco Tatum MD Magnesium [Mass/Vol] 1.9 mg/dL 1.6 - 2 .6 mg/dL [facility] Microscopic Urinalysison - [facility] Bacteria, UA RARE Abnormal None [facility] Epithelial Cells UA 0 TO 2 [facility] Interpretation and review of laboratory results Abnormal [facility] RBC, UA 2 TO 5 [facility] WBC, UA 2 TO [address] [facility] No Panel Informationon 11-30 Interpretation and review of laboratory results Abnormal [facility] Prot. Electrophoresis, Uron 11-30-2021 Type of Specimen .CLEAN CATCH URINE Normal [facility] Comment on above: Performed By: #### C BC, HEPXA, CMPX, MG, TSHX, TROPI #### [facility] [address] [place] [address] Kettle Operator Head: Dexter Fried MD #### LIPR #### [id number] [place] [address] Kettle Operator Head: Paco Tatum MD Protime-INRon 11-30-2021 INR Coag (Bld) [Relative time] 1.1 {INR} [facility] Comment on above: Non-therapeutic Range: INR = 0.9-1.2 Therapeutic Range: Moderate Anticoagulant Intensity: INR = 2.0-3.0 High Anticoagulant Intensity: INR = 2.5-3.5 PT Coag (PPP) [Time] [address] [facility] Troponinon 11-30-2021 Troponin, High Sens <6 Normal 0-14 [facility] Comment on above: Result Comment: High Sensitivity Troponin values cannot be compared with other Troponin methodologies. Patients with high levels of Biotin oral intake (i.e >5mg/day) may have falsely decreased Troponin levels. Samples collected within 8 hours of biotin intake may require additional information for diagnosis. Performed By: #### C BC, HEPXA, CMPX, MG, TSHX, TROPI #### [facility] [address] [facility] [place] [address] Kettle Operator Head: Dexter Fried MD #### LIPR #### [id number] [place] [address] Kettle Operator Head: Paco Tatum MD Troponin, High Sensitivity <6 0 - 14 ng/L [facility] Comment on above: High Sensitivity Troponin values cannot be compared with other Troponin methodologies. Patients with high levels of Biotin oral intake (i.e >5mg/day) may have falsely decreased Troponin levels. Samples collected within 8 hours of biotin intake may require additional information for diagnosis. [facility] Troponin, High Sensitivity <6 0 - 14 ng/L [facility] Comment on above: High Sensitivity Troponin values cannot be compared with other Troponin methodologies. Patients with high levels of Biotin oral intake (i.e >5mg/day) may have falsely decreased Troponin levels. Samples collected within 8 hours of biotin intake may require additional information for diagnosis. UA w/Reflex Cultureon 2021 Bilirubin, SemiQt,Ur Negative Normal NEG [facility] Comment on above: Performed By: #### C BC, HEPXA, CMPX, MG, TSHX, TROPI #### [facility] [address] [place] [address] Kettle Operator Head: Dexter Fried MD #### LIPR #### [address] [address] Kettle Operator Head: Paco Tatum MD Blood, Urine 3+ Abnormal NEG [facility] Comment on above: Performed By: #### C BC, HEPXA, CMPX, MG, TSHX, TROPI #### [facility] [address] [place] [address] Kettle Operator Head: Dexter Fried MD #### LIPR #### [address] [address] Kettle Operator Head: Paco Tatum MD Clarity (U) SLIGHTLY CLOUDY Abnormal CLEAR [facility] Comment on above: Performed By: #### C BC, HEPXA, CMPX, MG, TSHX, TROPI #### [facility] [address] [place] [address] Kettle Operator Head: Dexter Fried MD #### LIPR #### [address] [address] Kettle Operator Head: Paco Tatum MD Color (U) Yellow Normal YEL [facility] Comment on above: Performed By: #### C BC, HEPXA, CMPX, MG, TSHX, TROPI #### [facility] [address] [place] [address] Kettle Operator Head: Dexter Fried MD #### LIPR #### [address] [address] Kettle Operator Head: Paco Tatum MD Glucose Ql (U) Negative Normal NEG [facility] Comment on above: Performed By: #### C BC, HEPXA, CMPX, MG, TSHX, TROPI #### [facility] [address] [place] [address] Kettle Operator Head: Dexter Fried MD #### LIPR #### [address] [address] Kettle Operator Head: Paco Tatum MD Ketones Ql (U) Negative Normal NEG [facility] Comment on above: Performed By: #### C BC, HEPXA, CMPX, MG, TSHX, TROPI #### [facility] [address] [place] [address] Kettle Operator Head: Dexter Fried MD #### LIPR #### [address] [address] Kettle Operator Head: Paco Tatum MD Leukocyte esterase Test strip Ql (U) SMALL Abnormal NEG [facility] Comment on above: Performed By: #### C BC, HEPXA, CMPX, MG, TSHX, TROPI #### [facility] [address] [place] [address] Kettle Operator Head: Dexter Fried MD #### LIPR #### [address] [address] Kettle Operator Head: Paco Tatum MD Nitrite,Ur Negative Normal NEG [facility] Comment on above: Performed By: #### C BC, HEPXA, CMPX, MG, TSHX, TROPI #### [facility] [address] [place] [address] Kettle Operator Head: Dexter Fried MD #### LIPR #### [address] [address] Kettle Operator Head: Paco Tatum MD PH,Ur 6.0 Normal 5.0-8.0 [facility] Comment on above: Performed By: #### C BC, HEPXA, CMPX, MG, TSHX, TROPI #### [facility] [address] [place] [address] Kettle Operator Head: Dexter Fried MD #### LIPR #### [address] [address] Kettle Operator Head: Paco Tatum MD Protein Ql (U) Negative Normal NEG [facility] Comment on above: Performed By: #### C BC, HEPXA, CMPX, MG, TSHX, TROPI #### [facility] [address] [place] [address] Kettle Operator Head: Dexter Fried MD #### LIPR #### [address] [address] Kettle Operator Head: Paco Tatum MD Spec. [place],Ur 1.035 High 1.005-1.030 [facility] Comment on above: Performed By: #### C BC, HEPXA, CMPX, MG, TSHX, TROPI #### [facility] [address] [place] [address] Kettle Operator Head: Dexter Fried MD #### LIPR #### [address] [address] Kettle Operator Head: Paco Tatum MD Urobilinogen,Ur Normal Normal NORM [facility] Comment on above: Performed By: #### C BC, HEPXA, CMPX, MG, TSHX, TROPI #### [facility] [place] [address] Kettle Operator Head: Dexter Fried MD #### LIPR #### [address] [address] Kettle Operator Head: Paco Tatum MD Uric Acidon 11-30-2021 Urate [Mass/Vol] 8.0 mg/dL High 2.4-5.7 [facility] Comment on above: Performed By: #### C BC, HEPXA, CMPX, MG, TSHX, TROPI #### [facility] [address] [place] [address] Kettle Operator Head: Dexter Fried MD #### LIPR #### [id number] [place], [place] [phone] Kettle Operator Head: Paco Tatum MD Urate [Mass/Vol] 8.0 mg/dL High 2.4 - 5.7 mg/dL [facility] Urinalysis with Reflex to Cu ltureon 11-30-2021 Bilirubin Urine Negative NEGATIVE [facility] Color, UA Yellow Yellow [facility] Glucose, Ur Negative NEGATIVE [facility] Interpretation and review of laboratory results Abnormal [facility] Ketones Ql (U) Negative NEGATIVE [facility] Leukocyte esterase Test strip Ql (U) SMALL Abnormal NEGATIVE [facility] Nitrite, Urine Negative NEGATIVE [facility] pH, UA 6.0 [facility] Protein, UA Negative NEGATIVE [facility] Specific [place], UA 1.035 High [facility] Turbidity UA SLIGHTLY CLOUDY Abnormal Clear [facility] Urine Hgb 3+ Abnormal NEGATIVE [facility] Urobilinogen, Urine Normal Normal [facility] Urinalysis,Microon 2 ----- Normal [facility] Comment on above: Performed By: #### C BC, HEPXA, CMPX, MG, TSHX, TROPI #### [facility] [address] [place] [address] Kettle Operator Head: Dexter Fried MD #### LIPR #### [address] [address] Kettle Operator Head: Paco Tatum MD Bacteria RARE Abnormal NONE [facility] Comment on above: Performed By: #### C BC, HEPXA, CMPX, MG, TSHX, TROPI #### [facility] [address] [place] [address] Kettle Operator Head: Dexter Fried MD #### LIPR #### [address] [address] Kettle Operator Head: Paco Tatum MD Epithelial cells LM Ql (Urine sed) 0 TO 2 Normal 0-5 [facility] Comment on above: Performed By: #### C BC, HEPXA, CMPX, MG, TSHX, TROPI #### [facility] [address] [place] [address] Kettle Operator Head: Dexter Fried MD #### LIPR #### [address] [address] Kettle Operator Head: Paco Tatum MD Urine RBC's 2 TO 5 Normal 0-2 [facility] Comment on above: Performed By: #### C BC, HEPXA, CMPX, MG, TSHX, TROPI #### [facility] [place] [address] Kettle Operator Head: Dexter Fried MD #### LIPR #### [address] [address] Kettle Operator Head: Paco Tatum MD Urine WBC's 2 TO 5 Normal 0-5 [facility] Comment on above: Performed By: #### C BC, HEPXA, CMPX, MG, TSHX, TROPI #### [facility] [place] [address] Kettle Operator Head: Dexter Fried MD #### LIPR #### [address] [address] Kettle Operator Head: Paco Tatum MD XR CHEST PORTABLEon 12-01-19 XR CHEST PORTABLE EXAMINATION: ONE XRAY VIEW OF THE CHEST 11/30/2021 5:46 pm COMPARISON: CT PA dated November 26, 2021 HISTORY: ORDERING SYSTEM PROVIDED HISTORY: sob TECHNOLOGIST PROVIDED HISTORY: sob Reason for Exam: SOB FINDINGS: Adequate inspiration is present. No focal area of consolidation or pneumothorax is noted. Heart size is prominent. Vascular markings are distinct. No acute osseous abnormality is present. IMPRESSION: 1. Cardiomegaly, without evidence of CHF Interpreted by: Ernie Gamino DO Signed by: Ernie Gamino DO 11/30/21 Final result Normal [facility] 1. Cardiomegaly, without evidence of CHF [facility] RIS CONSOLIDATED EXAMINATION: ONE XRAY VIEW OF THE CHEST 11/30/2021 5:46 pm COMPARISON: CT PA dated November 26, 2021 HISTORY: ORDERING SYSTEM PROVIDED HISTORY: sob TECHNOLOGIST PROVIDED HISTORY: sob Reason for Exam: SOB FINDINGS: Adequate inspiration is present. No focal area of consolidation or pneumothorax is noted. Heart size is prominent. Vascular markings are distinct. No acute osseous abnormality is present. [facility] RIS CONSOLIDATED Ernie Gamino DO - 11/30/2021 EXAMINATION: ONE XRAY VIEW OF THE CHEST 11/30/2021 5:46 pm COMPARISON: CT PA dated November 26, 2021 HISTORY: ORDERING SYSTEM PROVIDED HISTORY: sob TECHNOLOGIST PROVIDED HISTORY: sob Reason for Exam: SOB FINDINGS: Adequate inspiration is present. No focal area of consolidation or pneumothorax is noted. Heart size is prominent. Vascular markings are distinct. No acute osseous abnormality is present. IMPRESSION: 1. Cardiomegaly, without evidence of CHF [facility] Phone: Radiology Study observation (narrative) [facility] Phone: XR CHEST PORTABLEOrdered By: Ernie Gamino on 11-30-2021 [facility] Phone: CBC with Auto Differentialon 11-26-2021 Absolute Eos # 0.[address] [facility] Heal th Absolute Immature Granulocyte 0.13 [employer] Absolute Lymph # 1.98 [facility] al[facility] Absolute [place] # 0.51 [facility] lt Basophils (Bld) [#/Vol] 0.06 10*3/uL [employer] Basophils/100 WBC (Bld) 1 % 0 - 2 % [employer] Eosinophils/100 WBC (Bld) 3 % 1 - 4 % [facility] Hematocrit (Bld) [Volume fraction] 28.9 % Low 36.3 - 47.1 % [facility] Hemoglobin.gastroint estinal spec 1 Ql (Stl) 8.9 g/dL Low 11.9 - 15.1 g/dL [facility] Immature granulocytes/100 WBC (Bld) 2 % High 0 [facility] Interpretation and review of laboratory results Abnormal [facility] Lymphocytes/100 WBC (Bld) 23 % Low 24 - 43 % [facility] MCH (RBC) [Entitic mass] 26.5 pg 25.2 - 33.5 pg [facility] MCHC (RBC) [Mass/Vol] 30.8 g/dL 28.4 - 34.8 g/dL [facility] MCV (RBC) [Entitic vol] 86.0 fL 82.6 - 102.9 fL [facility] Monocytes/100 WBC (Bld) 6 % 3 - 12 % [facility] NRBC Automated 0.0 0.0 per 100 WBC [facility] Platelet distribution width (Bld) [Ratio] 14.8 % High 11.8 - 14.4 % [facility] Platelet mean volume (Bld) [Entitic vol] 10.3 fL 8.1 - 13.5 fL [facility] Platelets (Bld) [#/Vol] 236 10*3/uL [facility] RBC (Bld) [#/Vol] 3.36 10*6/uL Low 3.95 - 5.1 1 m/uL [facility] RBC (Bld) [#/Vol] ANISOCYTOSIS PRESENT [facility] Segmented neutrophils/100 WBC (Bld) 65 % 36 - 65 % [facility] Segs [facility] [address] [facility] WBC (Bld) [#/Vol] 8.7 10*3/uL [facility] CBC with Diffon 11-26-2021 Abs. Basophil 0.06 k/uL Normal 0.00-0.20 [facility] Comment on above: Performed By: #### C DP, CP, URI #### [facility] [place] [address] Kettle Operator Head: Paco Tatum MD Abs.Imm.Granulocyte 0.13 k/uL Normal 0.00-0.30 [facility] Comment on above: Performed By: #### C DP, CP, URI #### [place] [address] Kettle Operator Head: Paco Tatum MD Abs.Neutrophil (Seg) 5.77 k/uL Normal 1.50-8.10 [facility] Comment on above: Performed By: #### C DP, CP, URI #### [place] [address] Kettle Operator Head: Paco Tatum MD Basophils/100 WBC (Bld) 1 % Normal 0-2 [facility] Comment on above: Performed By: #### C DP, CP, URI #### [place] [address] Kettle Operator Head: Paco Tatum MD Eosinophils (Bld) [#/Vol] 0.23 10*3/uL Normal 0.00-0.44 [facility] Comment on above: Performed By: #### C DP, CP, URI #### [place] [address] Kettle Operator Head: Paco Tatum MD Eosinophils/100 WBC (Bld) 3 % Normal 1-4 [facility] Comment on above: Performed By: #### C DP, CP, URI #### [place] [address] Kettle Operator Head: Paco Tatum MD Erythrocyte distribution width (RBC) [Ratio] 14.8 % High 11.8-14.4 [facility] Comment on above: Performed By: #### C DP, CP, URI #### [address] [address] Kettle Operator Head: Paco Tatum MD Hematocrit (Bld) [Volume fraction] 28.9 % Low 36.3-47.1 [facility] Comment on above: Performed By: #### C DP, CP, URI #### [address] [address] Kettle Operator Head: Paco Tatum MD Hemoglobin (Bld) [Mass/Vol] 8.9 g/dL Low 11.9-15.1 [facility] Comment on above: Performed By: #### C DP, CP, URI #### [address] [address] Kettle Operator Head: Paco Tatum MD Immature granulocytes/100 WBC (Bld) 2 % High 0 [facility] Comment on above: Performed By: #### C DP, CP, URI #### [address] [address] Kettle Operator Head: Paco Tatum MD Lymphocytes (Bld) [#/Vol] 1.98 10*3/uL Normal 1.10-3.70 [facility] Comment on above: Performed By: #### C DP, CP, URI #### [address] [address] Kettle Operator Head: Paco Tatum MD Lymphocytes/100 WBC (Bld) 23 % Low 24-43 [facility] Comment on above: Performed By: #### C DP, CP, URI #### [place] [address] Kettle Operator Head: Paco Tatum MD MCH (RBC) [Entitic mass] 26.5 pg Normal 25.2-33.5 [facility] Comment on above: Performed By: #### C DP, CP, URI #### [address] [address] Kettle Operator Head: Paco Tatum MD MCHC (RBC) [Mass/Vol] 30.8 g/dL Normal 28.4-34.8 [facility] Comment on above: Performed By: #### C DP, CP, URI #### [facility] [employer] [address] [place] [address] Kettle Operator Head: Paco Tatum MD MCV (RBC) [Entitic vol] 86.0 fL Normal 82.6-102.9 [facility] Comment on above: Performed By: #### C DP, CP, URI #### [facility] [employer] [address] [place] [address] Kettle Operator Head: Paco Tatum MD Monocytes (Bld) [#/Vol] 0.51 10*3/uL Normal 0.10-1.20 [facility] Comment on above: Performed By: #### C DP, CP, URI #### [facility] [employer] [address] [place] [address] Kettle Operator Head: Paco Tatum MD Monocytes/100 WBC (Bld) 6 % Normal 3-12 [facility] Comment on above: Performed By: #### C DP, CP, URI #### [address] [address] Kettle Operator Head: Paco Tatum MD Neutrophil (Seg) 65 % Normal 36-65 [facility] Comment on above: Performed By: #### C DP, CP, URI #### [address] [address] Kettle Operator Head: Paco Tatum MD NRBC Automated 0.0 per 100 WBC Normal 0.0 [facility] Comment on above: Performed By: #### C DP, CP, URI #### [facility] [employer] [address] [place] [address] Kettle Operator Head: Paco Tatum MD Platelet mean volume (Bld) [Entitic vol] 10.3 fL Normal 8.1-13.5 [facility] Comment on above: Performed By: #### C DP, CP, URI #### [id number] [place] [address] Kettle Operator Head: Paco Tatum MD Platelets (Bld) [#/Vol] 236 10*3/uL Normal 138-453 [facility] Comment on above: Performed By: #### C DP, CP, URI #### [address] [address] Kettle Operator Head: Paco Tatum MD RBC (Bld) [#/Vol] 3.36 10*6/uL Low 3.95-5.11 [facility] Comment on above: Performed By: #### C DP, CP, URI #### [address] [address] Kettle Operator Head: Paco Tatum MD RBC morphology finding Nom (Bld) ANISOCYTOSIS PRESENT Normal [facility] Comment on above: Performed By: #### C DP, CP, URI #### [address] [address] Kettle Operator Head: Paco Tatum MD WBC (Bld) [#/Vol] 8.7 10*3/uL Normal 3.5-11.3 [facility] Comment on above: Performed By: #### C DP, CP, URI #### [address] [address] Kettle Operator Head: Paco Tatum MD COVID-19, Rapidon 11-26-2021 SARS-CoV-2 (COVID-19) RNA MYNOR+probe Ql (Unsp spec) Not detected Not Detected [facility] Comment on above: Rapid NAAT: The specimen is NEGATIVE for SARS-CoV-2, the novel coronavirus associated with COVID-19. The ID NOW COVID-19 assay is designed to detect the virus that causes COVID-19 in patients with signs and symptoms of infection who are suspected of COVID-19. An individual without symptoms of COVID-19 and who is not shedding SARS-CoV-2 virus would expect to have a negative (not detected) result in this assay. Negative results should be treated as presumptive and, if inconsistent with clinical signs and symptoms or necessary for patient management, should be tested with an alternative molecular assay. Negative results do not preclude SARS-CoV-2 infection and should not be used as the sole basis for patient management decisions. Fact sheet for Healthcare Providers: https://www.fda.gov/media/546150/download Fact sheet for Patients: https://www.fda.gov/media/943469/download Methodology: Isothermal Nucleic Acid Amplification Specimen Description .NASOPHARYNGEAL SWAB [facility] CT CHEST PULMONARY EMBOLISM W CONTRASTon 11-26-2021 CT CHEST PULMONARY EMBOLISM W CONTRAST EXAMINATION: CTA OF THE CHEST 11/26/2021 5:23 am TECHNIQUE: CTA of the chest was performed after the administration of intravenous contrast. Multiplanar reformatted images are provided for review. MIP images are provided for review. Dose modulation, iterative reconstruction, and/or weight based adjustment of the mA/kV was utilized to reduce the radiation dose to as low as reasonably achievable. COMPARISON: None. HISTORY: ORDERING SYSTEM PROVIDED HISTORY: tachypnea, chest pain TECHNOLOGIST PROVIDED HISTORY: tachypnea, chest pain Reason for Exam: CHEST PAIN,TACHYPNEA FINDINGS: Pulmonary Arteries: Pulmonary arteries are adequately opacified for evaluation. Motion artifact is noted, degrading evaluation of the segmental branches. No evidence for central pulmonary embolism. Main pulmonary artery is normal in caliber. Mediastinum: No evidence of mediastinal lymphadenopathy. The heart and pericardium demonstrate no acute abnormality. There is no acute abnormality of the thoracic aorta. Lungs/pleura: Respiratory motion artifact. No focal consolidation or pulmonary edema. No evidence of pleural effusion or pneumothorax. Upper Abdomen: No acute findings. The partially visualized liver and spleen appear enlarged. Soft Tissues/Bones: No acute bone or soft tissue abnormality. IMPRESSION: Motion degraded exam. No evidence for central pulmonary embolism. Probable subsegmental atelectasis in the lung bases. No consolidation. Interpreted by: Alok San MD Signed by: Alok San MD 11/26/21 Final result Normal [facility] Motion degraded exam . No evidence for central pulmonary embolism. Probable subsegmental atelectasis in the lung bases. No consolidation. [facility] RIS CONSOLIDATED EXAMINATION: CTA OF THE CHEST 11/26/2021 5:23 am TECHNIQUE: CTA of the chest was performed after the administration of intravenous contrast. Multiplanar reformatted images are provided for review. MIP images are provided for review. Dose modulation, iterative reconstruction, and/or weight based adjustment of the mA/kV was utilized to reduce the radiation dose to as low as reasonably achievable. COMPARISON: None. HISTORY: ORDERING SYSTEM PROVIDED HISTORY: tachypnea, chest pain TECHNOLOGIST PROVIDED HISTORY: tachypnea, chest pain Reason for Exam: CHEST PAIN,TACHYPNEA FINDINGS: Pulmonary Arteries: Pulmonary arteries are adequately opacified for evaluation. Motion artifact is noted, degrading evaluation of the segmental branches. No evidence for central pulmonary embolism. Main pulmonary artery is normal in caliber. Mediastinum: No evidence of mediastinal lymphadenopathy. The heart and pericardium demonstrate no acute abnormality. There is no acute abnormality of the thoracic aorta. Lungs/pleura: Respiratory motion artifact. No focal consolidation or pulmonary edema. No evidence of pleural effusion or pneumothorax. Upper Abdomen: No acute findings. The partially visualized liver and spleen appear enlarged. Soft Tissues/Bones: No acute bone or soft tissue abnormality. [facility] RIS CONSOLIDATED Alok San MD - 11/26/2021 EXAMINATION: CTA OF THE CHEST 11/26/2021 5:23 am TECHNIQUE: CTA of the chest was performed after the administration of intravenous contrast. Multiplanar reformatted images are provided for review. MIP images are provided for review. Dose modulation, iterative reconstruction, and/or weight based adjustment of the mA/kV was utilized to reduce the radiation dose to as low as reasonably achievable. COMPARISON: None. HISTORY: ORDERING SYSTEM PROVIDED HISTORY: tachypnea, chest pain TECHNOLOGIST PROVIDED HISTORY: tachypnea, chest pain Reason for Exam: CHEST PAIN,TACHYPNEA FINDINGS: Pulmonary Arteries: Pulmonary arteries are adequately opacified for evaluation. Motion artifact is noted, degrading evaluation of the segmental branches. No evidence for central pulmonary embolism. Main pulmonary artery is normal in caliber. Mediastinum: No evidence of mediastinal lymphadenopathy. The heart and pericardium demonstrate no acute abnormality. There is no acute abnormality of the thoracic aorta. Lungs/pleura: Respiratory motion artifact. No focal consolidation or pulmonary edema. No evidence of pleural effusion or pneumothorax. Upper Abdomen: No acute findings. The partially visualized liver and spleen appear enlarged. Soft Tissues/Bones: No acute bone or soft tissue abnormality. IMPRESSION: Motion degraded exam. No evidence for central pulmonary embolism. Probable subsegmental atelectasis in the lung bases. No consolidation. [facility] Phone: Radiology Study observation (narrative) [facility] Phone: CT CHEST PULMONARY EMBOLISM W CONTRASTOrdered By: Alok San on 11-26-2021 [facility] Phone: Comp Metabolic Profon 2021 (cont.) Normal [facility] Comment on above: Result Comment: Aver age GFR for 20-29 years old: 116 mL/min/1.73sq m Chronic Kidney Disease: <60 mL/min/1.73sq m Kidney failure: <15 mL/min/1.73sq m eGFR calculated using average adult body mass. Additional eGFR calculator available at: http://www.[employer]/multiple_crcl_2011.htm Performed By: #### C DENG PARIKH, URI #### [facility] [address] [place] [address] Kettle Operator Head: Paco Tatum MD Albumin [Mass/Vol] 3.3 g/dL Low 3.5-5.2 [facility] Comment on above: Performed By: #### C DENG PARIKH, URI #### [facility] [address] [place] [address] Kettle Operator Head: Paco Tatum MD Albumin/Glob Ratio 1.1 Normal 1.0-2.5 [facility] Comment on above: Performed By: #### C DENG PARIKH, URI #### [facility] [address] [place] [address] Kettle Operator Head: Paco Tatum MD Alkaline Phos 105 U/L High 35-104 [facility] Comment on above: Performed By: #### C DENG PARIKH, URI #### [facility] [address] [place] [address] Kettle Operator Head: Paco Tatum MD ALT [Catalytic activity/Vol] 44 U/L High 5-33 [facility] Comment on above: Performed By: #### C DP, CP, URI #### [address] [address] Kettle Operator Head: Paco Tatum MD Anion gap [Moles/Vol] 14 mmol/L Normal 9-17 [facility] Comment on above: Performed By: #### C DP, CP, URI #### [facility] [employer] [address] [place] [address] Kettle Operator Head: Paco aTtum MD AST [Catalytic activity/Vol] 26 U/L Normal <32 [facility] Comment on above: Performed By: #### C DP, CP, URI #### [address] [address] Kettle Operator Head: Paco Tatum MD Bilirubin [Mass/Vol] 0.19 mg/dL Low 0.3-1.2 [facility] Comment on above: Performed By: #### C DP, CP, URI #### [address] [address] Kettle Operator Head: Paco Tatum MD Calcium [Mass/Vol] 8.3 mg/dL Low 8.6-10.4 [facility] Comment on above: Performed By: #### C DP, CP, URI #### [address] [address] Kettle Operator Head: Paco Tatum MD Chloride [Moles/Vol] 102 mmol/L Normal 98-107 [facility] Comment on above: Performed By: #### C DP, CP, URI #### [facility] [employer] [address] [place] [address] Kettle Operator Head: Paco Tatum MD CO2 [Moles/Vol] 21 mmol/L Normal 20-31 [facility] Comment on above: Performed By: #### C DP, CP, URI #### [facility] [address] [place] [address] Kettle Operator Head: Paco Tatum MD Creatinine [Mass/Vol] 0.32 mg/dL Low 0.50-0.90 [facility] Comment on above: Performed By: #### C DP, CP, URI #### [facility] [employer] [address] [place] [address] Kettle Operator Head: Paco Tatum MD GFR, Amer >60 Normal >60 [facility] Comment on above: Performed By: #### C DP, CP, URI #### [facility] [employer] [address] [place] [address] Kettle Operator Head: Paco Tatum MD GFR,non Amer >60 Normal >60 [facility] Comment on above: Performed By: #### C DP, CP, URI #### [facility] [employer] [address] [place] [address] Kettle Operator Head: Paco Tatum MD Glucose [Mass/Vol] 98 mg/dL Normal 70-99 [facility] Comment on above: Performed By: #### C DP, CP, URI #### [facility] [employer] [address] [place] [address] Kettle Operator Head: Paco Tatum MD Potassium [Moles/Vol] 3.7 mmol/L Normal 3.7-5.3 [facility] Comment on above: Performed By: #### C DP, CP, URI #### [facility] [employer] [address] [place] [address] Kettle Operator Head: Paco Tatum MD Protein [Mass/Vol] 6.2 g/dL Low 6.4-8.3 [facility] Comment on above: Performed By: #### C DP, CP, URI #### [facility] [address] [place] [address] Kettle Operator Head: Paco Tatum MD Sodium [Moles/Vol] 137 mmol/L Normal 135-144 [facility] Comment on above: Performed By: #### C JL, DENG, URI #### [facility] [address] [place], [place] [id number] Kettle Operator Head: Paco Tatum MD Urea nitrogen [Mass/Vol] 7 mg/dL Normal 6-20 [facility] Comment on above: Performed By: #### C JL, DENG, URI #### [facility] [address] [place], [place] [phone] Kettle Operator Head: Paco Tatum MD Comprehensive Metabolic Pane [facility] 11-26-2021 Albumin [Mass/Vol] 3.3 g/dL Low 3.5 - 5.2 g/dL [facility] [employer] Albumin/Globulin [Mass ratio] 1.1 {ratio} [facility] ALP (Bld) [Catalytic activity/Vol] 105 U/L High 35 - 104 U/L [employer] ALT [Catalytic activity/Vol] 44 U/L High 5 - 33 U/L [employer] Anion gap [Moles/Vol] 14 mmol/L 9 - 17 mmol/L [facility] AST [Catalytic activity/Vol] 26 U/L <32 [employer] Bilirubin [Mass/Vol] 0.19 mg/dL Low 0.3 - 1 .2 mg/dL [employer] Calcium [Mass/Vol] 8.3 mg/dL Low 8.6 - 10. 4 mg/dL [employer] Chloride [Moles/Vol] 102 mmol/L 98 - 10 7 mmol/L [employer] CO2 [Moles/Vol] 21 mmol/L 20 - 31 mmol/L [employer] Creatinine [Mass/Vol] 0.32 mg/dL Low 0.50 - 0.90 mg/dL [employer] Free PSA/Total PSA [Mass fraction] 6.2 g/dL Low 6.4 - 8.3 g/dL [employer] GFR >60 >60 mL/min [employer] GFR Non- >60 >60 mL/min [facility] GFR/1.73 sq M.predicted MDRD (S/P/Bld) [Vol rate/Area] [facility] Comment on above: Average GFR for 20-2 9 years old: 116 mL/min/1.73sq m Chronic Kidney Disease: <60 mL/min/1.73sq m Kidney failure: <15 mL/min/1.73sq m eGFR calculated using average adult body mass. Additional eGFR calculator available at: http://www.[employer]/multiple_crcl_2012.htm Glucose [Mass/Vol] 98 mg/dL 70 - 99 mg/dL [facility] Potassium [Moles/Vol] 3.7 mmol/L 3.7 - 5.3 mmol/L [facility] Sodium [Moles/Vol] 137 mmol/L 135 - 144 mmol/L [facility] Urea nitrogen (BldV) [Mass/Vol] 7 mg/dL 6 - 20 mg/dL [facility] No Panel Informationon 11-26 Interpretation and review of laboratory results Abnormal [facility] Protein / Creatinine Ratio, Urineon 11-26-2021 Creatinine, Ur 31.3 mg/dL 28.0 - 217.0 mg/dL [facility] Interpretation and review of laboratory results Abnormal [facility] Protein (U) [Mass/Vol] 11 mg/dL [facility] Comment on above: No normal range esta blished. Urine Total Protein Creatinine Ratio 0.[address] [facility] Protein,Tot,Peytona Uron 2021 Creatinine [Mass/Vol] 31.3 mg/dL Normal 28.0-217.0 [facility] Comment on above: Performed By: #### C BC, HEPXA, CMPX, MG, TSHX, TROPI #### [facility] [address] [place] [address] Kettle Operator Head: Dexter Fried MD #### LIPR #### [facility] [address] [place], [place] [phone] Kettle Operator Head: Paco Tatum MD Tot Prot. Conc. 11 mg/dL Normal [facility] Comment on above: Result Comment: No n ormal range established. Performed By: #### C BC, HEPXA, CMPX, MG, TSHX, TROPI #### [facility] [address] [place] [address] Kettle Operator Head: Dexter Fried MD #### LIPR #### [id number] [place] [address] Kettle Operator Head: Paco Tatum MD TP/Cre Ratio 0.35 High 0.00-0.20 [facility] Comment on above: Performed By: #### C BC, HEPXA, CMPX, MG, TSHX, TROPI #### [facility] [address] [place] [address] Kettle Operator Head: Dexter Fried MD #### LIPR #### [address] [address] Kettle Operator Head: Paco Tatum MD [id number] 11-26-2021 SARS-CoV-2 (COVID-19) RNA MYNOR+probe Ql (Unsp spec) Not detected Normal NOTDET [facility] Comment on above: Result Comment: Rapid NAAT: The specimen is NEGATIVE for SARS-CoV-2, the novel coronavirus associated with COVID-19. The ID NOW COVID-19 assay is designed to detect the virus that causes COVID-19 in patients with signs and symptoms of infection who are suspected of COVID-19. An individual without symptoms of COVID-19 and who is not shedding SARS-CoV-2 virus would expect to have a negative (not detected) result in this assay. Negative results should be treated as presumptive and, if inconsistent with clinical signs and symptoms or necessary for patient management, should be tested with an alternative molecular assay. Negative results do not preclude SARS-CoV-2 infection and should not be used as the sole basis for patient management decisions. Fact sheet for Healthcare Providers: https://www.fda.gov/media/219046/download Fact sheet for Patients: https://www.fda.gov/media/705381/download Methodology: Isothermal Nucleic Acid Amplification Performed By: #### C OVRB #### [facility] [address] [place], [place] [id number] Kettle Operator Head: Dexter Fried MD Uric Acidon 11-26-2021 Urate [Mass/Vol] 6.4 mg/dL High 2.4-5.7 [facility] Comment on above: Performed By: #### C DP, CP, URI #### [facility] [address] [place], [place] [id number] Kettle Operator Head: Paco Tatum MD Urate [Mass/Vol] 6.4 mg/dL High 2.4 - 5.7 mg/dL [employer] Basic Metabolic Panelon 11-08 Anion gap [Moles/Vol] 11 mmol/L 9 - 17 mmol/L [employer] Calcium [Mass/Vol] 8.5 mg/dL Low 8.6 - 10. 4 mg/dL [facility] [employer] Chloride [Moles/Vol] 104 mmol/L 98 - 10 7 mmol/L [facility] [employer] CO2 [Moles/Vol] 22 mmol/L 20 - 31 mmol/L [employer] Creatinine [Mass/Vol] 0.43 mg/dL Low 0.50 - 0.90 mg/dL [employer] GFR >60 >60 mL/min [employer] GFR Non- >60 >60 mL/min [employer] GFR/1.73 sq M.predicted MDRD (S/P/Bld) [Vol rate/Area] [facility] Comment on above: Average GFR for 20-2 9 years old: 116 mL/min/1.73sq m Chronic Kidney Disease: <60 mL/min/1.73sq m Kidney failure: <15 mL/min/1.73sq m eGFR calculated using average adult body mass. Additional eGFR calculator available at: http://www.[employer]/multiple_crcl_2012.htm Glucose [Mass/Vol] 101 mg/dL High 70 - 99 mg/dL [employer] Potassium [Moles/Vol] 4.2 mmol/L 3.7 - 5.3 mmol/L [facility] [employer] Sodium [Moles/Vol] 137 mmol/L 135 - 144 mmol/L [facility] [employer] Urea nitrogen (BldV) [Mass/Vol] 9 mg/dL 6 - 20 mg/dL [facility] Urea nitrogen/Creatinine (Bld) [Mass ratio] 21 High [facility] Basic Metabolic Profon 11-25 Anion gap [Moles/Vol] 11 mmol/L Normal 9-17 [facility] Comment on above: Performed By: #### C BC, HEPXA, CMPX, MG, TSHX, TROPI #### [facility] [address] [place] [address] Kettle Operator Head: Dexter Fried MD #### LIPR #### [address] [address] Kettle Operator Head: Paco Tatum MD BUN/CRE Ratio 21 High 9-20 [facility] Comment on above: Performed By: #### C BC, HEPXA, CMPX, MG, TSHX, TROPI #### [facility] [address] [place] [address] Kettle Operator Head: Dexter Fried MD #### LIPR #### [address] [address] Kettle Operator Head: Paco Tatum MD Calcium [Mass/Vol] 8.5 mg/dL Low 8.6-10.4 [facility] Comment on above: Performed By: #### C BC, HEPXA, CMPX, MG, TSHX, TROPI #### [facility] [address] [place] [address] Kettle Operator Head: Dexter Fried MD #### LIPR #### [address] [address] Kettle Operator Head: Paco Tatum MD Chloride [Moles/Vol] 104 mmol/L Normal 98-107 [facility] Comment on above: Performed By: #### C BC, HEPXA, CMPX, MG, TSHX, TROPI #### [facility] [address] [place] [address] Kettle Operator Head: Dexter Fried MD #### LIPR #### [address] [address] Kettle Operator Head: Paco Tatum MD CO2 [Moles/Vol] 22 mmol/L Normal 20-31 [facility] Comment on above: Performed By: #### C BC, HEPXA, CMPX, MG, TSHX, TROPI #### [facility] [address] [place] [address] Kettle Operator Head: Dexter Fried MD #### LIPR #### [address] [address] Kettle Operator Head: Paco Tatum MD Creatinine [Mass/Vol] 0.43 mg/dL Low 0.50-0.90 [facility] Comment on above: Performed By: #### C BC, HEPXA, CMPX, MG, TSHX, TROPI #### [facility] [address] [place] [address] Kettle Operator Head: Dexter Fried MD #### LIPR #### [address] [address] Kettle Operator Head: Paco Tatum MD GFR, Amer >60 Normal >60 [facility] Comment on above: Performed By: #### C BC, HEPXA, CMPX, MG, TSHX, TROPI #### [facility] [address] [place] [address] Kettle Operator Head: Dexter Fried MD #### LIPR #### [address] [address] Kettle Operator Head: Paco Tatum MD GFR,non Amer >60 Normal >60 [facility] Comment on above: Performed By: #### C BC, HEPXA, CMPX, MG, TSHX, TROPI #### [facility] [address] [place] [address] Kettle Operator Head: Dexter Fried MD #### LIPR #### [address] [address] Kettle Operator Head: Paco Tatum MD Glucose [Mass/Vol] 101 mg/dL High 70-99 [facility] Comment on above: Performed By: #### C BC, HEPXA, CMPX, MG, TSHX, TROPI #### [facility] [address] [place] [address] Kettle Operator Head: Dexter Fried MD #### LIPR #### [address] [address] Kettle Operator Head: Paco Tatum MD Potassium [Moles/Vol] 4.2 mmol/L Normal 3.7-5.3 [facility] Comment on above: Performed By: #### C BC, HEPXA, CMPX, MG, TSHX, TROPI #### [facility] [address] [place] [address] Kettle Operator Head: Dexter Fried MD #### LIPR #### [address] [address] Kettle Operator Head: Paco Tatum MD Sodium [Moles/Vol] 137 mmol/L Normal 135-144 [facility] Comment on above: Performed By: #### C BC, HEPXA, CMPX, MG, TSHX, TROPI #### [facility] [address] [place] [address] Kettle Operator Head: Dexter Fried MD #### LIPR #### [address] [address] Kettle Operator Head: Paco Tatum MD Urea nitrogen [Mass/Vol] 9 mg/dL Normal 6-20 [facility] Comment on above: Performed By: #### C BC, HEPXA, CMPX, MG, TSHX, TROPI #### [facility] [address] [place] [address] Kettle Operator Head: Dexter Fried MD #### LIPR #### [id number] [place] [address] Kettle Operator Head: Paco Tatum MD (cont.) [facility] Comment on above: Result Comment: Aver age GFR for 20-29 years old: 116 mL/min/1.73sq m Chronic Kidney Disease: <60 mL/min/1.73sq m Kidney failure: <15 mL/min/1.73sq m eGFR calculated using average adult body mass. Additional eGFR calculator available at: http://www.[employer]/multiple_crcl_2012.htm Performed By: #### C BC, HEPXA, CMPX, MG, TSHX, TROPI #### [facility] [address] [place] [address] Kettle Operator Head: Dexter Fried MD #### LIPR #### [id number] [place] [address] Kettle Operator Head: Paco Tatum MD Brain Natri. Peptideon 11-25 Natriuretic peptide B (Bld) [Mass/Vol] 163 pg/mL Normal <300 [facility] Comment on above: Result Comment: An age-independent cutoff point of 300 pg/ml has a 98% negative predictive value excluding acute heart failure. Performed By: #### C BC, HEPXA, CMPX, MG, TSHX, TROPI #### [facility] [address] [place], [place] [id number] Kettle Operator Head: Dexter Fried MD #### LIPR #### [facility] [address] [place] [address] Kettle Operator Head: Paco Tatum MD Brain Natriuretic Peptideon 11-25-2021 Natriuretic peptide B (Bld) [Mass/Vol] 163 pg/mL <300 [employer] Comment on above: An age-independent cutoff point of 300 pg/ml has a 98% negative predictive value excluding acute heart failure. CBC with Auto Differentialon 11-25-2021 [facility] 0.[facility] Immature Granulocyte 0.10 [facility] Absolute Lymph # 2.14 [employer] [facility] Absolute Norton # 0.58 [employer] [facility] Basophils (Bld) [#/Vol] 0.05 10*3/uL [facility] Basophils/100 WBC (Bld) 1 % 0 - 2 % [facility] Eosinophils/100 WBC (Bld) 2 % 1 - 4 % [facility] Hematocrit (Bld) [Volume fraction] 28.0 % Low 36.3 - 47.1 % [employer] Hemoglobin.gastroint estinal spec 1 Ql (Stl) 8.8 g/dL Low 11.9 - 15.1 g/dL [facility] Immature granulocytes/100 WBC (Bld) 1 % High 0 [facility] Interpretation and review of laboratory results Abnormal [facility] Lymphocytes/100 WBC (Bld) 22 % Low 24 - 43 % [employer] MCH (RBC) [Entitic mass] 26.9 pg 25.2 - 33.5 pg [employer] MCHC (RBC) [Mass/Vol] 31.4 g/dL 28.4 - 34.8 g/dL [employer] MCV (RBC) [Entitic vol] 85.6 fL 82.6 - 102.9 fL [facility] Monocytes/100 WBC (Bld) 6 % 3 - 12 % [employer] NRBC Automated 0.2 High 0.0 per 100 WBC [employer] Platelet distribution width (Bld) [Ratio] 14.7 % High 11.8 - 14.4 % [employer] Platelet mean volume (Bld) [Entitic vol] 9.8 fL 8.1 - 13.5 fL [employer] Platelets (Bld) [#/Vol] 227 10*3/uL [employer] RBC (Bld) [#/Vol] 3.27 10*6/uL Low 3.95 - 5.1 1 m/uL [facility] RBC (Bld) [#/Vol] ANISOCYTOSIS PRESENT [facility] Segmented neutrophils/100 WBC (Bld) 68 % High 36 - 65 % [facility] Segs [facility] [address] [facility] WBC (Bld) [#/Vol] 9.6 10*3/uL [facility] CBC with Diffon 11-25-2021 Abs. Basophil 0.05 k/uL Normal 0.00-0.20 [facility] Comment on above: Performed By: #### C BC, HEPXA, CMPX, MG, TSHX, TROPI #### [facility] [address] [place] [address] Kettle Operator Head: Dexter Fried MD #### LIPR #### [address] [address] Kettle Operator Head: Paco Tatum MD Abs.Imm.Granulocyte 0.10 k/uL Normal 0.00-0.30 [facility] Comment on above: Performed By: #### C BC, HEPXA, CMPX, MG, TSHX, TROPI #### [facility] [address] [place] [address] Kettle Operator Head: Dexter Fried MD #### LIPR #### [address] [address] Kettle Operator Head: Paco Tatum MD Abs.Neutrophil (Seg) 6.46 k/uL Normal 1.50-8.10 [facility] Comment on above: Performed By: #### C BC, HEPXA, CMPX, MG, TSHX, TROPI #### [facility] [address] [place] [address] Kettle Operator Head: Dexter Fried MD #### LIPR #### [address] [address] Kettle Operator Head: Paco Tatum MD Basophils/100 WBC (Bld) 1 % Normal 0-2 [facility] Comment on above: Performed By: #### C BC, HEPXA, CMPX, MG, TSHX, TROPI #### [facility] [place] [address] Kettle Operator Head: Dexter Fried MD #### LIPR #### [address] [address] Kettle Operator Head: Pcao Tatum MD Eosinophils (Bld) [#/Vol] 0.22 10*3/uL Normal 0.00-0.44 [facility] Comment on above: Performed By: #### C BC, HEPXA, CMPX, MG, TSHX, TROPI #### [facility] [address] [place] [address] Kettle Operator Head: Dexter Fried MD #### LIPR #### [address] [address] Kettle Operator Head: Paco Tatum MD Eosinophils/100 WBC (Bld) 2 % Normal 1-4 [facility] Comment on above: Performed By: #### C BC, HEPXA, CMPX, MG, TSHX, TROPI #### [facility] [address] [place] [address] Kettle Operator Head: Dexter Fried MD #### LIPR #### [address] [address] Kettle Operator Head: Paco Tatum MD Erythrocyte distribution width (RBC) [Ratio] 14.7 % High 11.8-14.4 [facility] Comment on above: Performed By: #### C BC, HEPXA, CMPX, MG, TSHX, TROPI #### [facility] [address] [place] [address] Kettle Operator Head: Dexter Fried MD #### LIPR #### [address] [address] Kettle Operator Head: Paco Tatum MD Hematocrit (Bld) [Volume fraction] 28.0 % Low 36.3-47.1 [facility] Comment on above: Performed By: #### C BC, HEPXA, CMPX, MG, TSHX, TROPI #### [facility] [address] [place] [address] Kettle Operator Head: Dexter Fried MD #### LIPR #### [address] [address] Kettle Operator Head: Paco Tatum MD Hemoglobin (Bld) [Mass/Vol] 8.8 g/dL Low 11.9-15.1 [facility] Comment on above: Performed By: #### C BC, HEPXA, CMPX, MG, TSHX, TROPI #### [facility] [address] [place] [address] Kettle Operator Head: Dexter Fried MD #### LIPR #### [address] [address] Kettle Operator Head: Paco Tatum MD Immature granulocytes/100 WBC (Bld) 1 % High 0 [facility] Comment on above: Performed By: #### C BC, HEPXA, CMPX, MG, TSHX, TROPI #### [facility] [address] [place] [address] Kettle Operator Head: Dexter Fried MD #### LIPR #### [address] [address] Kettle Operator Head: Paco Tatum MD Lymphocytes (Bld) [#/Vol] 2.14 10*3/uL Normal 1.10-3.70 [facility] Comment on above: Performed By: #### C BC, HEPXA, CMPX, MG, TSHX, TROPI #### [facility] [address] [place] [address] Kettle Operator Head: Dexter Fried MD #### LIPR #### [address] [address] Kettle Operator Head: Paco Tatum MD Lymphocytes/100 WBC (Bld) 22 % Low 24-43 [facility] Comment on above: Performed By: #### C BC, HEPXA, CMPX, MG, TSHX, TROPI #### [facility] [address] [place] [address] Kettle Operator Head: Dexter Fried MD #### LIPR #### [address] [address] Kettle Operator Head: Paco Tatum MD MCH (RBC) [Entitic mass] 26.9 pg Normal 25.2-33.5 [facility] Comment on above: Performed By: #### C BC, HEPXA, CMPX, MG, TSHX, TROPI #### [facility] [address] [place] [address] Kettle Operator Head: Dexter Fried MD #### LIPR #### [address] [address] Kettle Operator Head: Paco Tatum MD MCHC (RBC) [Mass/Vol] 31.4 g/dL Normal 28.4-34.8 [facility] Comment on above: Performed By: #### C BC, HEPXA, CMPX, MG, TSHX, TROPI #### [facility] [address] [place] [address] Kettle Operator Head: Dexter Fried MD #### LIPR #### [id number] [place] [address] Kettle Operator Head: Paco Tatum MD MCV (RBC) [Entitic vol] 85.6 fL Normal 82.6-102.9 [facility] Comment on above: Performed By: #### C BC, HEPXA, CMPX, MG, TSHX, TROPI #### [facility] [address] [place] [address] Kettle Operator Head: Dexter Fried MD #### LIPR #### [address] [address] Kettle Operator Head: Paco Tatum MD Monocytes (Bld) [#/Vol] 0.58 10*3/uL Normal 0.10-1.20 [facility] Comment on above: Performed By: #### C BC, HEPXA, CMPX, MG, TSHX, TROPI #### [facility] [address] [place] [address] Kettle Operator Head: Dexter Fried MD #### LIPR #### [address] [address] Kettle Operator Head: Paco Tatum MD Monocytes/100 WBC (Bld) 6 % Normal 3-12 [facility] Comment on above: Performed By: #### C BC, HEPXA, CMPX, MG, TSHX, TROPI #### [facility] [address] [place] [address] Kettle Operator Head: Dexter Fried MD #### LIPR #### [address] [address] Kettle Operator Head: Paco Tatum MD Neutrophil (Seg) 68 % High 36-65 [facility] Comment on above: Performed By: #### C BC, HEPXA, CMPX, MG, TSHX, TROPI #### [facility] [address] [place] [address] Kettle Operator Head: Dexter Fried MD #### LIPR #### [address] [address] Kettle Operator Head: Paco Tatum MD NRBC Automated 0.2 per 100 WBC High 0.0 [facility] Comment on above: Performed By: #### C BC, HEPXA, CMPX, MG, TSHX, TROPI #### [facility] [address] [place] [address] Kettle Operator Head: Dexter Fried MD #### LIPR #### [address] [address] Kettle Operator Head: Paco Tatum MD Platelet mean volume (Bld) [Entitic vol] 9.8 fL Normal 8.1-13.5 [facility] Comment on above: Performed By: #### C BC, HEPXA, CMPX, MG, TSHX, TROPI #### [facility] [address] [place] [address] Kettle Operator Head: Dexter Fried MD #### LIPR #### [address] [address] Kettle Operator Head: Paco Tatum MD Platelets (Bld) [#/Vol] 227 10*3/uL Normal 138-453 [facility] Comment on above: Performed By: #### C BC, HEPXA, CMPX, MG, TSHX, TROPI #### [facility] [address] [place] [address] Kettle Operator Head: Dexter Fried MD #### LIPR #### [address] [address] Kettle Operator Head: Paco Tatum MD RBC (Bld) [#/Vol] 3.27 10*6/uL Low 3.95-5.11 [facility] Comment on above: Performed By: #### C BC, HEPXA, CMPX, MG, TSHX, TROPI #### [facility] [address] [place] [address] Kettle Operator Head: Dexter Fried MD #### LIPR #### [address] [address] Kettle Operator Head: Paco Tatum MD RBC morphology finding Nom (Bld) ANISOCYTOSIS PRESENT Normal [facility] Comment on above: Performed By: #### C BC, HEPXA, CMPX, MG, TSHX, TROPI #### [facility] [address] [place] [address] Kettle Operator Head: Dexter Fried MD #### LIPR #### [address] [address] Kettle Operator Head: Paco Tatum MD WBC (Bld) [#/Vol] 9.6 10*3/uL Normal 3.5-11.3 [facility] Comment on above: Performed By: #### C BC, HEPXA, CMPX, MG, TSHX, TROPI #### [facility] [address] [place] [address] Kettle Operator Head: Dexter Fried MD #### LIPR #### [address] [address] Kettle Operator Head: Paco Tatum MD Hepatic Function Panelon Albumin [Mass/Vol] 3.2 g/dL Low 3.5 - 5.2 g/dL [facility] ALP (Bld) [Catalytic activity/Vol] 102 U/L 35 - 104 U/L [facility] ALT [Catalytic activity/Vol] 44 U/L High 5 - 33 U/L [facility] AST [Catalytic activity/Vol] 29 U/L <32 [facility] Bilirubin [Mass/Vol] 0.13 mg/dL Low 0.3 - 1 .2 mg/dL [facility] Bilirubin, Indirect Can not be calculated 0.00 - 1.00 mg/dL [facility] Bilirubin.indirect [Mass/Vol] mg/dL <0.31 mg/dL [facility] Free PSA/Total PSA [Mass fraction] 6.2 g/dL Low 6.4 - 8.3 g/dL [facility] Lactate Dehydrogenaseon 11-08 LDH [Catalytic activity/Vol] 183 U/L Normal 135-214 [facility] Comment on above: Performed By: #### C BC, HEPXA, CMPX, MG, TSHX, TROPI #### [facility] [address] [place] [address] Kettle Operator Head: Dexter Fried MD #### LIPR #### [address] [address] Kettle Operator Head: Paco Tatum MD LD 183 U/L 135 - 214 U/L [facility] Liver Profileon 11-25-2021 Albumin [Mass/Vol] 3.2 g/dL Low 3.5-5.2 [facility] Comment on above: Performed By: #### C BC, HEPXA, CMPX, MG, TSHX, TROPI #### [facility] [address] [place] [address] Kettle Operator Head: Dexter Fried MD #### LIPR #### [facility] [address] [place] [address] Kettle Operator Head: Paco Tatum MD Alkaline Phos 102 U/L Normal 35-104 [facility] Comment on above: Performed By: #### C BC, HEPXA, CMPX, MG, TSHX, TROPI #### [facility] [address] [place] [address] Kettle Operator Head: Dexter Fried MD #### LIPR #### [address] [address] Kettle Operator Head: Paco Tatum MD ALT [Catalytic activity/Vol] 44 U/L High 5-33 [facility] Comment on above: Performed By: #### C BC, HEPXA, CMPX, MG, TSHX, TROPI #### [facility] [address] [place] [address] Kettle Operator Head: Dexter Fried MD #### LIPR #### [address] [address] Kettle Operator Head: Paco Tatum MD AST [Catalytic activity/Vol] 29 U/L Normal <32 [facility] Comment on above: Performed By: #### C BC, HEPXA, CMPX, MG, TSHX, TROPI #### [facility] [address] [place] [address] Kettle Operator Head: Dexter Fried MD #### LIPR #### [address] [address] Kettle Operator Head: Paco Tatum MD Bilirubin [Mass/Vol] 0.13 mg/dL Low 0.3-1.2 [facility] Comment on above: Performed By: #### C BC, HEPXA, CMPX, MG, TSHX, TROPI #### [facility] [address] [place] [address] Kettle Operator Head: Dexter Fried MD #### LIPR #### [address] [address] Kettle Operator Head: Paco Tatum MD Bilirubin, Indirect Can not be calculated Normal 0.00- 1.00 [facility] Comment on above: Performed By: #### C BC, HEPXA, CMPX, MG, TSHX, TROPI #### [facility] [place] [address] Kettle Operator Head: Dexter Fried MD #### LIPR #### [address] [address] Kettle Operator Head: Paco Tatum MD Bilirubin.indirect [Mass/Vol] mg/dL Normal <0.31 [facility] Comment on above: Performed By: #### C BC, HEPXA, CMPX, MG, TSHX, TROPI #### [facility] [address] [place] [address] Kettle Operator Head: Dexter Fried MD #### LIPR #### [address] [address] Kettle Operator Head: Paco Tatum MD Protein [Mass/Vol] 6.2 g/dL Low 6.4-8.3 [facility] Comment on above: Performed By: #### C BC, HEPXA, CMPX, MG, TSHX, TROPI #### [facility] [address] [place] [address] Kettle Operator Head: Dexter Fried MD #### LIPR #### [address] [address] Kettle Operator Head: Paco Tatum MD Magnesiumon 11-25-2021 Magnesium [Mass/Vol] 1.9 mg/dL Normal 1.6-2.6 [facility] Comment on above: Performed By: #### C BC, HEPXA, CMPX, MG, TSHX, TROPI #### [facility] [address] [place] [address] Kettle Operator Head: Dexter Fried MD #### LIPR #### [address] [phone] Kettle Operator Head: Paco Tatum MD Magnesium [Mass/Vol] 1.9 mg/dL 1.6 - 2 .6 mg/dL [facility] Microscopic Urinalysison - [facility] Bacteria, UA RARE Abnormal None [facility] Epithelial Cells UA 0 TO 2 [facility] Interpretation and review of laboratory results Abnormal [facility] RBC, UA 5 TO 10 [facility] WBC, UA 0 TO [address] [facility] No Panel Informationon 11-25 Interpretation and review of laboratory results Abnormal [facility] Troponinon 11-25-2021 Troponin, High Sens 6 ng/L Normal 0-14 [facility] Comment on above: Result Comment: High Sensitivity Troponin values cannot be compared with other Troponin methodologies. Patients with high levels of Biotin oral intake (i.e >5mg/day) may have falsely decreased Troponin levels. Samples collected within 8 hours of biotin intake may require additional information for diagnosis. Performed By: #### C BC, HEPXA, CMPX, MG, TSHX, TROPI #### [facility] [address] [place], [place] [phone] Kettle Operator Head: Dexter Fried MD #### LIPR #### [id number] [place], [place] [phone] Kettle Operator Head: Paco Tatum MD Troponin, High Sensitivity 6 ng/L 0 - 14 ng/L [facility] Comment on above: High Sensitivity Troponin values cannot be compared with other Troponin methodologies. Patients with high levels of Biotin oral intake (i.e >5mg/day) may have falsely decreased Troponin levels. Samples collected within 8 hours of biotin intake may require additional information for diagnosis. UA w/Reflex Cultureon 2021 Bilirubin, SemiQt,Ur Negative Normal NEG [facility] Comment on above: Performed By: #### C BC, HEPXA, CMPX, MG, TSHX, TROPI #### [facility] [address] [place], [place] [phone] Kettle Operator Head: Dexter Fried MD #### LIPR #### [address] [id number] Kettle Operator Head: Paco Tatum MD Blood, Urine 3+ Abnormal NEG [facility] Comment on above: Performed By: #### C BC, HEPXA, CMPX, MG, TSHX, TROPI #### [facility] [place] [address] Kettle Operator Head: Dexter Fried MD #### LIPR #### [address] [address] Kettle Operator Head: Paco Tatum MD Clarity (U) SLIGHTLY CLOUDY Abnormal CLEAR [facility] Comment on above: Performed By: #### C BC, HEPXA, CMPX, MG, TSHX, TROPI #### [facility] [address] [place] [id number] Kettle Operator Head: Dexter Fried MD #### LIPR #### [address] [address] Kettle Operator Head: Paco Tatum MD Color (U) SHIRA Abnormal YEL [facility] Comment on above: Performed By: #### C BC, HEPXA, CMPX, MG, TSHX, TROPI #### [facility] [address] [place] [address] Kettle Operator Head: Dexter Fried MD #### LIPR #### [address] [address] Kettle Operator Head: Paco Tatum MD Glucose Ql (U) Negative Normal NEG [facility] Comment on above: Performed By: #### C BC, HEPXA, CMPX, MG, TSHX, TROPI #### [facility] [address] [place] [address] Kettle Operator Head: Dexter Fried MD #### LIPR #### [address] [address] Kettle Operator Head: Paco Tatum MD Ketones Ql (U) Negative Normal NEG [facility] Comment on above: Performed By: #### C BC, HEPXA, CMPX, MG, TSHX, TROPI #### [facility] [address] [place] [address] Kettle Operator Head: Dexter Fried MD #### LIPR #### [address] [address] Kettle Operator Head: Paco Tatum MD Leukocyte esterase Test strip Ql (U) TRACE Abnormal NEG [facility] Comment on above: Performed By: #### C BC, HEPXA, CMPX, MG, TSHX, TROPI #### [facility] [address] [place] [address] Kettle Operator Head: Dexter Fried MD #### LIPR #### [address] [address] Kettle Operator Head: Paco Tatum MD Nitrite,Ur Negative Normal NEG [facility] Comment on above: Performed By: #### C BC, HEPXA, CMPX, MG, TSHX, TROPI #### [facility] [address] [place] [address] Kettle Operator Head: Dexter Fried MD #### LIPR #### [address] [address] Kettle Operator Head: Paco Tatum MD PH,Ur 6.0 Normal 5.0-8.0 [facility] Comment on above: Performed By: #### C BC, HEPXA, CMPX, MG, TSHX, TROPI #### [facility] [address] [place] [address] Kettle Operator Head: Dexter Fried MD #### LIPR #### [address] [address] Kettle Operator Head: Paco Tatum MD Protein Ql (U) Negative Normal NEG [facility] Comment on above: Performed By: #### C BC, HEPXA, CMPX, MG, TSHX, TROPI #### [facility] [address] [place] [address] Kettle Operator Head: Dexter Fried MD #### LIPR #### [address] [address] Kettle Operator Head: Paco Tatum MD Spec. [place],Ur 1.015 Normal 1.005-1.030 [facility] Comment on above: Performed By: #### C BC, HEPXA, CMPX, MG, TSHX, TROPI #### [facility] [address] [place] [address] Kettle Operator Head: Dexter Fried MD #### LIPR #### [address] [address] Kettle Operator Head: Paco Tatum MD Urobilinogen,Ur Normal Normal NORM [facility] Comment on above: Performed By: #### C BC, HEPXA, CMPX, MG, TSHX, TROPI #### [facility] [address] [place] [phone] Kettle Operator Head: Dexter Fried MD #### LIPR #### [address] [address] Kettle Operator Head: Paco Tatum MD Urinalysis with Reflex to Cu ltureon 11-25-2021 Bilirubin Urine Negative NEGATIVE [facility] Color, UA SHIRA Abnormal Yellow [facility] Glucose, Ur Negative NEGATIVE [facility] Interpretation and review of laboratory results Abnormal [facility] Ketones Ql (U) Negative NEGATIVE [facility] Leukocyte esterase Test strip Ql (U) TRACE Abnormal NEGATIVE [facility] Nitrite, Urine Negative NEGATIVE [facility] pH, UA 6.0 [facility] Protein, UA Negative NEGATIVE [facility] Specific [place], UA 1.015 [facility] Turbidity UA SLIGHTLY CLOUDY Abnormal Clear [facility] Urine Hgb 3+ Abnormal NEGATIVE [facility] Urobilinogen, Urine Normal Normal [facility] Urinalysis,Microon 2 ----- Normal [facility] Comment on above: Performed By: #### C BC, HEPXA, CMPX, MG, TSHX, TROPI #### [facility] [address] [place], [place] [phone] Kettle Operator Head: Dexter Fried MD #### LIPR #### [address] [phone] Kettle Operator Head: Paco Tatum MD Bacteria RARE Abnormal NONE [facility] Comment on above: Performed By: #### C BC, HEPXA, CMPX, MG, TSHX, TROPI #### [facility] [address] [place], [place] [id number] Kettle Operator Head: Dexter Fried MD #### LIPR #### [address] [phone] Kettle Operator Head: Paco Tatum MD Epithelial cells LM Ql (Urine sed) 0 TO 2 Normal 0-5 [facility] Comment on above: Performed By: #### C BC, HEPXA, CMPX, MG, TSHX, TROPI #### [facility] [address] [place], [place] [phone] Kettle Operator Head: Dexter Fried MD #### LIPR #### [address] [phone] Kettle Operator Head: Paco Tatum MD Urine RBC's 5 TO 10 Normal 0-2 [facility] Comment on above: Performed By: #### C BC, HEPXA, CMPX, MG, TSHX, TROPI #### [facility] [address] [place], [place] [phone] Kettle Operator Head: Dexter Fried MD #### LIPR #### [address] [phone] Kettle Operator Head: Paco Tatum MD Urine WBC's 0 TO 2 Normal 0-5 [facility] Comment on above: Performed By: #### C BC, HEPXA, CMPX, MG, TSHX, TROPI #### [facility] [address] [place], [place] [phone] Kettle Operator Head: Dexter Fried MD #### LIPR #### [address] [phone] Kettle Operator Head: Paco Tatum MD POINT OF CARE GLUCOSEon 11-08 Glucose [Mass/Vol] 123 mg/dL Critically high 74-106 [facility] Comment on above: Performed By: #### C VDTB #### [facility] [address] [place] [address] Dr. Emmanuel Murray CBC AUTO DIFFon 11-22-2021 BASO # 0.0 103/ul Normal 0.0-0.1 [facility] Comment on above: Performed By: #### C BC #### [facility] [address] [place] [address] Dr. Emmanuel Murray Basophils/100 WBC (Bld) 0.3 % Normal 0.2-2.0 [facility] Comment on above: Performed By: #### C BC #### [facility] [address] [place] [address] Dr. Emmanuel Murray EO # 0.2 103/ul Normal 0.0-0.7 [facility] Comment on above: Performed By: #### C BC #### [facility] [address] [address] [address] Emmanuel Murray Eosinophils/100 WBC (Bld) 1.4 % Normal 0.9-7.0 [facility] Comment on above: Performed By: #### C BC #### [facility] [address] [place] [address] Dr. Emmanuel Murray Erythrocyte distribution width (RBC) [Ratio] 14.7 % Normal 11.0-15.0 [facility] Comment on above: Performed By: #### C BC #### [facility] [address] [place] [address] Dr. Emmanuel Murray Hematocrit (Bld) [Volume fraction] 28.9 % Critically low 36.0-48.0 [facility] Comment on above: Performed By: #### C BC #### [facility] [address] [place] [address] Dr. Emmanuel Murray Hemoglobin (Bld) [Mass/Vol] 9.5 g/dL Critically low 12.0-16.0 [facility] Comment on above: Performed By: #### C BC #### [facility] [address] [place] [address] Dr. Emmanuel Murray IG # 0.09 10e3/ul Critically high 0.00-0.03 [facility] Comment on above: Performed By: #### C BC #### [facility] [address] [place] [address] Dr. Emmanuel Murray IG % 0.8 % Critically high 0.0-0.5 [facility] Comment on above: Performed By: #### C BC #### [facility] [address] [place] [address] Dr. Emmanuel Murray LYMPH # 2.5 103/ul Normal 1.2-3.8 [facility] Comment on above: Performed By: #### C BC #### [facility] [address] [place] [address] Dr. Emmanuel Murray Lymphocytes/100 WBC (Bld) 21.4 % Normal 20.5-60.0 [facility] Comment on above: Performed By: #### C BC #### [facility] [address] [place] [address] Dr. Emmanuel Murray MANUAL DIFF REQ NO Normal [facility] Comment on above: Performed By: #### C BC #### [facility] [address] [place] [address] Dr. Emmanuel Murray MCH (RBC) [Entitic mass] 28.1 pg Normal 26.7-34.0 [facility] Comment on above: Performed By: #### C BC #### [facility] [address] [place] [address] Dr. Emmanuel Murray MCHC (RBC) [Mass/Vol] 32.9 g/dL Normal 29.9-35.2 [facility] Comment on above: Performed By: #### C BC #### [facility] [address] [place] [address] Dr. Emmanuel Murray MCV (RBC) [Entitic vol] 85.5 fL Normal 81.0-99.0 [facility] Comment on above: Performed By: #### C BC #### [facility] [address] [place] [address] Dr. Emmanuel Murray MONO # 0.6 103/ul Normal 0.3-0.8 [facility] Comment on above: Performed By: #### C BC #### [facility] [address] [place] [address] Dr. Emmanuel Murray Monocytes/100 WBC (Bld) 5.2 % Normal 1.7-12.0 [facility] Comment on above: Performed By: #### C BC #### [facility] [address] [place] [address] Dr. Emmanuel Murray NEUT # 8.1 103/ul Critically high 1.4-6.5 [facility] Comment on above: Performed By: #### C BC #### [facility] [address] [place] [address] Dr. Emmanuel Murray Neutrophils/100 WBC (Bld) 70.9 % Normal 43.0-75.0 [facility] Comment on above: Performed By: #### C BC #### [facility] [address] [place] [address] Dr. Emmanuel Murray Platelet mean volume (Bld) [Entitic vol] 10.0 fL Normal 9.5-13.5 [facility] Comment on above: Performed By: #### C BC #### [facility] [address] [address] [address] Emmanuel Murray PLT 186 103/ul Normal 150-450 [facility] Comment on above: Performed By: #### C BC #### [facility] [address] [place] [address] Dr. Emmanuel Murray RBC 3.38 106/ul Critically low 4.20-5.40 [facility] Comment on above: Performed By: #### C BC #### [facility] [address] [place] [address] Dr. Emmanuel Murray WBC 11.4 103/ul Critically high 4.0-11.0 [facility] Comment on above: Performed By: #### C BC #### [facility] [address] [place] [address] Dr. Emmanuel Murray CBC AUTO DIFFon 11-20-2021 BASO # 0.1 103/ul Normal 0.0-0.1 [facility] Comment on above: Performed By: #### C VDTBH #### [facility] [address] [place] [address] Dr. Emmanuel Murray Basophils/100 WBC (Bld) 0.4 % Normal 0.2-2.0 [facility] Comment on above: Performed By: #### C VDTBH #### [facility] [address] [place] [address] Dr. Emmanuel Murray EO # 0.1 103/ul Normal 0.0-0.7 [facility] Comment on above: Performed By: #### C VDTBH #### [facility] [address] [place] [address] Dr. Emmanuel Murray Eosinophils/100 WBC (Bld) 0.4 % Critically low 0.9-7.0 [facility] Comment on above: Performed By: #### C VDTBH #### [facility] [address] [address] [address] Emmanuel Murray Erythrocyte distribution width (RBC) [Ratio] 14.8 % Normal 11.0-15.0 [facility] Comment on above: Performed By: #### C VDTBH #### [facility] [address] [place] [address] Dr. Emmanuel Murray Hematocrit (Bld) [Volume fraction] 32.6 % Critically low 36.0-48.0 [facility] Comment on above: Performed By: #### C VDTBH #### [facility] [address] [place] [address] Dr. Emmanuel Murray Hemoglobin (Bld) [Mass/Vol] 10.6 g/dL Critically low 12.0-16.0 [facility] Comment on above: Performed By: #### C VDTBH #### [facility] [address] [place] [address] Dr. Emmanuel Murray IG # 0.10 10e3/ul Critically high 0.00-0.03 [facility] Comment on above: Performed By: #### C VDTBH #### [facility] [address] [place] [address] Dr. Emmanuel Murray IG % 0.9 % Critically high 0.0-0.5 [facility] Comment on above: Performed By: #### C VDTBH #### [facility] [address] [place] [address] Dr. Emmanuel Murray LYMPH # 2.3 103/ul Normal 1.2-3.8 [facility] Comment on above: Performed By: #### C VDTBH #### [facility] [address] [place] [address] Dr. Emmanuel Murray Lymphocytes/100 WBC (Bld) 19.6 % Critically low 20.5-60.0 [facility] Comment on above: Performed By: #### C VDTBH #### [facility] [address] [place] [address] Dr. Emmanuel Murray MANUAL DIFF REQ NO Normal [facility] Comment on above: Performed By: #### C VDTBH #### [facility] [address] [address] [address] Emmanuel Murray MCH (RBC) [Entitic mass] 27.2 pg Normal 26.7-34.0 [facility] Comment on above: Performed By: #### C VDTBH #### [facility] [address] [place] [address] Dr. Emmanuel Murray MCHC (RBC) [Mass/Vol] 32.5 g/dL Normal 29.9-35.2 [facility] Comment on above: Performed By: #### C VDTBH #### [facility] [address] [place] [address] Dr. Emmanuel Murray MCV (RBC) [Entitic vol] 83.6 fL Normal 81.0-99.0 [facility] Comment on above: Performed By: #### C VDTBH #### [facility] [address] [place] [address] Dr. Emmanuel Murray MONO # 0.5 103/ul Normal 0.3-0.8 [facility] Comment on above: Performed By: #### C VDTBH #### [facility] [address] [place] [address] Dr. Emmanuel Murray Monocytes/100 WBC (Bld) 4.4 % Normal 1.7-12.0 [facility] Comment on above: Performed By: #### C VDTBH #### [facility] [address] [place] [address] Dr. Emmanuel Murray NEUT # 8.7 103/ul Critically high 1.4-6.5 [facility] Comment on above: Performed By: #### C VDTBH #### [facility] [address] [place] [address] Dr. Emmanuel Murray Neutrophils/100 WBC (Bld) 74.3 % Normal 43.0-75.0 [facility] Comment on above: Performed By: #### C VDTBH #### [facility] [address] [place] [address] Dr. Emmanuel Murray Platelet mean volume (Bld) [Entitic vol] 10.1 fL Normal 9.5-13.5 [facility] Comment on above: Performed By: #### C VDTBH #### [facility] [address] [place] [address] Dr. Emmanuel Murray PLT 239 103/ul Normal 150-450 [facility] Comment on above: Performed By: #### C VDTBH #### [facility] [address] [address] [address] Emmanuel Murray RBC 3.90 106/ul Critically low 4.20-5.40 [facility] Comment on above: Performed By: #### C VDTBH #### [facility] [address] [address] [address] Emmanuel Murray WBC 11.7 103/ul Critically high 4.0-11.0 [facility] Comment on above: Performed By: #### C VDTBH #### [facility] [address] [place] [address] Dr. Emmanuel Murray Covid-19 PCR ([facility])on 11-08 SARS-CoV-2 (COVID-19) RNA MYNOR+probe Ql (Unsp spec) Not detected Normal NOT DETECTED [facility] Comment on above: Result Comment: When diagnostic testing is negative, the possibility of a false negative should be considered in the context of a patient's recent exposures and the presence of clinical signs and symptoms consistent with SARS-CoV-2. This test is not yet approved or cleared by the [place] FDA. When there are no FDA-approved or cleared tests available, and other criteria are met, FDA can make tests available under an emergency access mechanism called an Emergency Use Authorization (EUA). The EUA for this test is supported by the [employer] Administrator of Health and Human Service's declaration that circumstances exist to justify the emergency use of in vitro diagnostics for the detection and/or diagnosis of the virus that causes COVID-19. This EUA will remain in effect for the duration of the COVID-19 declaration justifying emergency of IVDs, unless it is terminated or revoked by the FDA (after which the test may no longer be used). Performed By: #### C VDTBH #### [facility] [address] [place] [address] Dr. Emmanuel Murray DRUG SCREEN RAPID (URINE)on 11-20-2021 AMP Negative Normal NEGATIVE [facility] Comment on above: Performed By: #### D RUGRPD #### [facility] [address] [place] [address] Dr. Emmanuel Murray BAR Negative Normal NEGATIVE [facility] Comment on above: Performed By: #### D RUGRPD #### [facility] [address] [place] [address] Dr. Emmanuel Murray BUP Negative Normal NEGATIVE [facility] Comment on above: Performed By: #### D RUGRPD #### [facility] [address] [place] [address] Dr. Emmanuel Murray BZO Negative Normal NEGATIVE [facility] Comment on above: Performed By: #### D RUGRPD #### [facility] [address] [place] [address] Dr. Emmanuel Murray PATI Negative Normal NEGATIVE [facility] Comment on above: Performed By: #### D RUGRPD #### [facility] [address] [place] [address] Dr. Emmanuel Murray CUT-OFFS SEE BELOW Normal [facility] Comment on above: Result Comment: AMP (Amphetamine): 500ng/mL, BAR (Barbituates): 200 ng/mL, BZO (Benzodiazepines): 150 ng/mL, BUP (Buprenorphine): 10 ng/mL, PATI (Cocaine): 150 ng/mL, mAMP (Methamphetamine): 500 ng/mL, MTD (Methadone): 200 ng/mL, OPI (Opiates): 100 ng/mL, OXY (Oxycodone): 100 ng/mL, PCP (Phencyclidine): 25 ng/mL, PPX (Propoxyphene): 300 ng/mL, THC (Cannabinoids): 50 ng/mL, TCA (Trycyclic Antidepressants): 300 ng/mL Performed By: #### D RUGRPD #### [facility] [address] [place] [address] Dr. Emmanuel Murray DRUG CUT HEADER DRUG CLASS TEST SYSTEM CUT-OFF CONCENTRATIONS ARE FOLLOWS: Normal [facility] Comment on above: Performed By: #### D RUGRPD #### [facility] [address] [address] [address] Emmanuel Murray mAMP Negative Normal NEGATIVE [facility] Comment on above: Performed By: #### D RUGRPD #### [facility] [address] [address] [address] Emmanuel Murray MTD Negative Normal NEGATIVE [facility] Comment on above: Performed By: #### D RUGRPD #### [facility] [address] [address] [address] Emmanuel Murray OPI Negative Normal NEGATIVE [facility] Comment on above: Performed By: #### D RUGRPD #### [facility] [address] [place] [address] Dr. Emmanuel Murray OXY Negative Normal NEGATIVE [facility] Comment on above: Performed By: #### D RUGRPD #### [facility] [address] [place] [address] Dr. Emmanuel Murray PCP Negative Normal NEGATIVE [facility] Comment on above: Performed By: #### D RUGRPD #### [facility] [address] [place] [address] Dr. Emmanuel Murray PPX Negative Normal NEGATIVE [facility] Comment on above: Performed By: #### D RUGRPD #### [facility] [address] [place] [address] Dr. Emmanuel Murray TCA Negative Normal NEGATIVE [facility] Comment on above: Performed By: #### D RUGRPD #### [facility] [address] [place] [address] Dr. Emmanuel Murray THC Negative Normal NEGATIVE [facility] Comment on above: Performed By: #### D RUGRPD #### [facility] [address] [place] [address] Dr. Emmanuel Murray TYPE AND SCREENon 11-20-2021 TYPE AND SCREEN Negative Normal [facility] Comment on above: Performed By: #### C VDTBH #### [facility] [address] [place] [address] Dr. Emmanuel Murray Vital Signs Date Time Vital Sign Value Performing Clinician Facility 03-20-2025 09:27-0400 Body mass index (BMI) [Ratio] 42.89 kg/m2 [facility] 03-20-2025 09:27-0400 Body weight 102.97 kg [facility] 03-20-2025 09:27-0400 Diastolic blood pressure 70 mm[Hg] [facility] 03-20-2025 09:27-0400 Systolic blood pressure 118 mm[Hg] [facility] 01-01-2025 11:00-0400 Body height 154.9 cm Moriah Hoitenga PA-C Work Phone: [facility] 01-01-2025 11:00-0400 Body mass index (BMI) [Ratio] 45.31 kg/m2 Moriah Hoitenga PA-C Work Phone: [facility] 01-01-2025 11:00-0400 Body weight 108.73 kg Moriah Hoitenga PA-C Work Phone: [facility] 01-01-2025 11:00-0400 Diastolic blood pressure 73 mm[Hg] Moriah Hoitenga PA-C Work Phone: [facility] 01-01-2025 11:00-0400 Heart rate 84 /min Moriah Hoitenga PA-C Work Phone: [facility] 01-01-2025 11:00-0400 SaO2% (BldA) [Mass fraction] 100 % Moriah Hoitenga PA-C Work Phone: [facility] 01-01-2025 11:00-0400 Systolic blood pressure 110 mm[Hg] Moriah Hoitenga PA-C Work Phone: [facility] 10-10-2024 15:32-0500 Body height 154.9 cm Riddhi Plata MD Work Phone: [facility] 10-10-2024 15:32-0500 Body mass index (BMI) [Ratio] 50.26 kg/m2 Riddhi Plata MD Work Phone: [facility] 10-10-2024 15:32-0500 Body weight 120.66 kg Riddhi Plata MD Work Phone: [facility] 10-10-2024 15:32-0500 Diastolic blood pressure 74 mm[Hg] Riddhi Plata MD Work Phone: [facility] 10-10-2024 15:32-0500 Heart rate 91 /min Riddhi Plata MD Work Phone: [facility] 10-10-2024 15:32-0500 Respiratory rate 18 /min Riddhi Plata MD Work Phone: [facility] 10-10-2024 15:32-0500 SaO2% (BldA) [Mass fraction] 97 % Riddhi Plata MD Work Phone: [facility] 10-10-2024 15:32-0500 Systolic blood pressure 132 mm[Hg] Riddhi Plata MD Work Phone: [facility] 08-25-2024 08:16-0500 Body height 154.9 cm Riddhi Plata MD Work Phone: [facility] 08-25-2024 08:16-0500 Body mass index (BMI) [Ratio] 53.81 kg/m2 Riddhi Plata MD Work Phone: [facility] 08-25-2024 08:16-0500 Body weight 129.18 kg Riddhi Plata MD Work Phone: [facility] 08-25-2024 08:16-0500 Diastolic blood pressure 70 mm[Hg] Riddhi Plata MD Work Phone: [facility] 08-25-2024 08:16-0500 Heart rate 86 /min Riddhi Plata MD Work Phone: [facility] 08-25-2024 08:16-0500 Respiratory rate 18 /min Riddhi Plata MD Work Phone: [facility] 08-25-2024 08:16-0500 SaO2% (BldA) [Mass fraction] 98 % Riddhi Plata MD Work Phone: [facility] 08-25-2024 08:16-0500 Systolic blood pressure 114 mm[Hg] Riddhi Plata MD Work Phone: [facility] 06-12-2024 15:47-0400 Body height 154.9 cm Riddhi Plata MD Work Phone: [facility] 06-12-2024 15:47-0400 Body mass index (BMI) [Ratio] 60.27 kg/m2 Riddhi Plata MD Work Phone: [facility] 06-12-2024 15:47-0400 Body weight 144.7 kg Riddhi Plata MD Work Phone: [facility] 06-12-2024 15:47-0400 Respiratory rate 18 /min Riddhi Plata MD Work Phone: [facility] 06-04-2024 10:00-0400 Body height 154.[address] [facility] 06-04-2024 10:00-0400 Body mass index (BMI) [Ratio] 60.95 kg/m2 Les Sorg RD [facility] 06-04-2024 10:00-0400 Body weight 146.[address] [facility] 05-01-2024 12:07-0400 Body height 154.9 cm Tonia Manzo MD Work Phone: [facility] Comment on above: 5'1 05-01-2024 12:07-0400 Body mass index (BMI) [Ratio] 63.86 kg/m2 Tonia Manzo MD Work Phone: [facility] 05-01-2024 12:07-0400 Body weight 153.32 kg Tonia Manzo MD Work Phone: [facility] 05-01-2024 12:07-0400 Diastolic blood pressure 83 mm[Hg] Tonia Manzo MD Work Phone: [facility] 05-01-2024 12:07-0400 Heart rate 108 /min Tonia Manzo MD Work Phone: [facility] [employer] [facility] 05-01-2024 12:07-0400 Systolic blood pressure 127 mm[Hg] Tonia Manzo MD Work Phone: [facility] 04-24-2024 08:54-0400 Body height 154.9 cm Tonia Manzo MD Work Phone: [facility] 04-24-2024 08:35-0400 Body temperature 98.2 [degF] Tonia Manzo MD Work Phone: [facility] [employer] [facility] 04-24-2024 08:35-0400 Diastolic blood pressure 71 mm[Hg] Tonia Manzo MD Work Phone: [facility] 04-24-2024 08:35-0400 Heart rate 52 /min Tonia Manzo MD Work Phone: [facility] [employer] [facility] 04-24-2024 08:35-0400 Respiratory rate 20 /min Tonia Manzo MD Work Phone: [facility] [employer] [facility] 04-24-2024 08:35-0400 SaO2% (BldA) [Mass fraction] 98 % Tonia Manzo MD Work Phone: [facility] 04-24-2024 08:35-0400 Systolic blood pressure 133 mm[Hg] Tonia Manzo MD Work Phone: [facility] 04-24-2024 08:30-0400 Body mass index (BMI) [Ratio] 66.9 kg/m2 Tonia Manzo MD Work Phone: [facility] [employer] [facility] 04-24-2024 08:30-0400 Body weight 160.6 kg Tonia Manzo MD Work Phone: [facility] 04-15-2024 08:49-0400 Body height 154.9 cm [facility] [address] [facility] 04-15-2024 08:49-0400 Body mass index (BMI) [Ratio] 67.98 kg/m2 [facility] [address] [facility] 04-15-2024 08:49-0400 Body temperature 98.2 [degF] [facility] 04-15-2024 08:49-0400 Body weight 163.2 kg [facility] [address] [facility] 04-15-2024 08:49-0400 Diastolic blood pressure 58 mm[Hg] [facility] [address] [facility] 04-15-2024 08:49-0400 Heart rate 76 /min [facility] [address] [facility] 04-15-2024 08:49-0400 Respiratory rate 18 /min [facility] 04-15-2024 08:49-0400 SaO2% (BldA) [Mass fraction] 97 % [facility] [address] [facility] 04-15-2024 08:49-0400 Systolic blood pressure 112 mm[Hg] [facility] [address] [facility] 03-27-2024 13:33-0400 Body height 157.5 cm Tonia Manzo MD Work Phone: [facility] 03-27-2024 13:33-0400 Body mass index (BMI) [Ratio] 65.43 kg/m2 Tonia Manzo MD Work Phone: [facility] 03-27-2024 13:33-0400 Body weight 162.3 kg Tonia Manzo MD Work Phone: [facility] 03-27-2024 13:33-0400 Diastolic blood pressure 84 mm[Hg] Tonia Manzo MD Work Phone: [facility] 03-27-2024 13:33-0400 Heart rate 76 /min Tonia Manzo MD Work Phone: [facility] 03-27-2024 13:33-0400 Respiratory rate 16 /min Tonia Manzo MD Work Phone: [facility] 03-27-2024 13:33-0400 Systolic blood pressure 131 mm[Hg] Tonia Manzo MD Work Phone: [facility] 03-17-2024 08:27-0400 Body height 157.5 cm Osiris Venegas MD Work Phone: [facility] 03-17-2024 08:27-0400 Body mass index (BMI) [Ratio] 66.94 kg/m2 Osiris Venegas MD Work Phone: [facility] 03-17-2024 08:27-0400 Body weight 166.02 kg Osiris Venegas MD Work Phone: [facility] 03-17-2024 08:27-0400 Diastolic blood pressure 80 mm[Hg] sOiris Venegas MD Work Phone: [facility] 03-17-2024 08:27-0400 Heart rate 80 /min Osiris Venegas MD Work Phone: [facility] 03-17-2024 08:27-0400 SaO2% (BldA) [Mass fraction] 97 % Osiris Venegas MD Work Phone: [facility] 03-17-2024 08:27-0400 Systolic blood pressure 130 mm[Hg] Osiris Venegas MD Work Phone: [facility] 03-06-2024 13:00-0400 Body mass index (BMI) [Ratio] 66.21 kg/m2 Les Sorg RD [facility] 03-06-2024 13:00-0400 Body weight 164.[address] [facility] 02-07-2024 13:00-0400 Body mass index (BMI) [Ratio] 66.76 kg/m2 Les Sorg RD [facility] 02-07-2024 13:00-0400 Body weight 165.[address] [facility] 01-02-2024 12:00-0400 Body mass index (BMI) [Ratio] 65.41 kg/m2 Les Sorg RD [facility] 01-02-2024 12:00-0400 Body weight 162.[address] [facility] 12-05-2023 13:00-0400 Body mass index (BMI) [Ratio] 65.92 kg/m2 Les Sorg RD [facility] 12-05-2023 13:00-0400 Body weight 163.[address] [facility] 11-08-2023 11:00-0500 Body mass index (BMI) [Ratio] 65.66 kg/m2 Les Sorg RD [facility] 11-08-2023 11:00-0500 Body weight 162.[address] [facility] 10-10-2023 07:53-0500 Body height 154.9 cm Theodora Early MD Work Phone: [facility] 10-10-2023 07:53-0500 Body mass index (BMI) [Ratio] 68.4 kg/m2 Thoedora Early MD Work Phone: [facility] 10-10-2023 07:53-0500 Body weight 164.2 kg Theodora Early MD Work Phone: [facility] 10-10-2023 07:53-0500 Diastolic blood pressure 70 mm[Hg] Theodora Early MD Work Phone: [facility] 10-10-2023 07:53-0500 Heart rate 78 /min Theodora Early MD Work Phone: [facility] 10-10-2023 07:53-0500 SaO2% (BldA) [Mass fraction] 97 % Theodora Eraly MD Work Phone: [facility] 10-10-2023 07:53-0500 Systolic blood pressure 128 mm[Hg] Theodora Early MD Work Phone: [facility] 10-09-2023 11:00-0500 Body mass index (BMI) [Ratio] 67.38 kg/m2 Les Sorg RD [facility] 10-09-2023 11:00-0500 Body weight 161.[address] [facility] 09-27-2023 11:41-0500 Body height 154.9 cm Jalyn Vidal DO Work Phone: [facility] 09-27-2023 11:41-0500 Body mass index (BMI) [Ratio] 67.85 kg/m2 Jalyn Vidal DO Work Phone: [facility] [employer] 09-27-2023 11:41-0500 Body weight 162.89 kg Jalyn Vidal DO Work Phone: [facility] [employer] 09-27-2023 11:41-0500 Diastolic blood pressure 89 mm[Hg] Jalyn Vidal DO Work Phone: [facility] [employer] 09-27-2023 11:41-0500 Heart rate 68 /min Jalyn Viadl DO Work Phone: [facility] [employer] 09-27-2023 11:41-0500 SaO2% (BldA) [Mass fraction] 98 % Jalyn Vidal DO Work Phone: [facility] [employer] 09-27-2023 11:41-0500 Systolic blood pressure 144 mm[Hg] Jalyn Vidal DO Work Phone: [facility] [employer] 09-06-2023 11:00-0500 Body mass index (BMI) [Ratio] 67.17 kg/m2 Les Sorg RD [facility] [employer] 09-06-2023 11:00-0500 Body weight 161.[address] [facility] [employer] [facility] 12-05-2021 15:29-0400 Body height 154.9 cm Duarte Sosa MD Work Phone: [employer] 12-05-2021 15:29-0400 Body mass index (BMI) [Ratio] 51.51 kg/m2 Duarte Sosa MD Work Phone: [employer] 12-05-2021 15:29-0400 Body temperature 98.01 [degF] Duarte Sosa MD Work Phone: [employer] 12-05-2021 15:29-0400 Body weight 123.65 kg Duarte Sosa MD Work Phone: [employer] 12-05-2021 15:29-0400 Diastolic blood pressure 85 mm[Hg] Duarte Sosa MD Work Phone: [employer] 12-05-2021 15:29-0400 Heart rate 62 /min Duarte Sosa MD Work Phone: [employer] 12-05-2021 15:29-0400 Respiratory rate 14 /min Duarte Sosa MD Work Phone: [employer] 12-05-2021 15:29-0400 SaO2% (BldA) [Mass fraction] 100 % Duarte Sosa MD Work Phone: [employer] 12-05-2021 15:29-0400 Systolic blood pressure 128 mm[Hg] Duarte Sosa MD Work Phone: [employer] 12-01-2021 15:11-0400 Diastolic blood pressure 76 mm[Hg] Gunjan Valentino DO Work Phone: [employer] 12-01-2021 15:11-0400 Heart rate 77 /min Gunjan Valentino DO Work Phone: [employer] 12-01-2021 15:11-0400 Systolic blood pressure 155 mm[Hg] Gunjan Valentino DO Work Phone: [employer] 12-01-2021 04:14-0400 Body temperature 98.1 [degF] Gunjan Valentino DO Work Phone: [employer] 12-01-2021 04:00-0400 Respiratory rate 20 /min Gunjan Valentino DO Work Phone: [employer] 12-01-2021 04:00-0400 SaO2% (BldA) [Mass fraction] 95 % Gunjan Valentino DO Work Phone: [employer] 12-01-2021 00:00-0400 Body height 154.9 cm Gunjan Valentino DO Work Phone: [employer] 12-01-2021 00:00-0400 Body mass index (BMI) [Ratio] 52.72 kg/m2 Gunjan Valentino DO Work Phone: [employer] 12-01-2021 00:00-0400 Body weight 126.55 kg Gunjan Valentino DO Work Phone: [employer] 11-29-2021 09:58-0400 Diastolic blood pressure 64 mm[Hg] Marielos Torres MD Work Phone: [employer] 11-29-2021 09:58-0400 Heart rate 84 /min Marielos Torres MD Work Phone: [employer] 11-29-2021 09:58-0400 Respiratory rate 18 /min Marielos Torres MD Work Phone: [employer] 11-29-2021 09:58-0400 Systolic blood pressure 132 mm[Hg] Marielos Torres MD Work Phone: [employer] 11-29-2021 08:01-0400 Body temperature 97.9 [degF] Marielos Torres MD Work Phone: [employer] 11-28-2021 08:00-0400 SaO2% (BldA) [Mass fraction] 95 % Marielos Torres MD Work Phone: [employer] 11-26-2021 06:15-0400 Body height 154.9 cm Marielos Torres MD Work Phone: [employer] 11-26-2021 06:15-0400 Body mass index (BMI) [Ratio] 54.8 kg/m2 Marielos Torres MD Work Phone: [employer] 11-26-2021 06:15-0400 Body weight 131.54 kg Marielos Torres MD Work Phone: [employer] 11-26-2021 01:00-0400 Diastolic blood pressure 80 mm[Hg] Tonia Garibay DO Work Phone: [employer] 11-26-2021 01:00-0400 Heart rate 73 /min Tonia Garibay DO Work Phone: [employer] 11-26-2021 01:00-0400 Respiratory rate 28 /min Tonia Garibay DO Work Phone: [employer] 03-19-2022 01:00-0400 SaO2% (BldA) [Mass fraction] 96 % Tonia Garibay DO Work Phone: [employer] 11-26-2021 01:00-0400 Systolic blood pressure 142 mm[Hg] Toina Garibay DO Work Phone: [employer] 11-25-2021 18:54-0400 Body height 154.9 cm Tonia Garibay DO Work Phone: [employer] 11-25-2021 18:54-0400 Body mass index (BMI) [Ratio] 54.8 kg/m2 Tonia Garibay DO Work Phone: [employer] 11-25-2021 18:54-0400 Body temperature 98.2 [degF] Tonia Garibay DO Work Phone: [employer] 11-25-2021 18:54-0400 Body weight 131.54 kg Tonia Garibay DO Work Phone: [employer] Encounters Encounter Date Encounter Type Care Provider Facility Start: 03-20-2025 End: 03-20-2025 Office outpatient visit 5 minutes Carmen Nurse [facility] Comment on above: GA: 10w0d Start: 03-20-2025 End: 03-20-2025 ambulatory RIDDHI PLATA Not Available Start: 01-01-2025 End: 01-01-2025 Office outpatient visit 25 minutes Tonia Manzo MD Work Phone: [facility] Comment on above: History of Bonnie-en-Y gastric bypass (Primary Dx); Postsurgical malabsorption; Malnutrition following gastrointestinal surgery; History of anemia; B12 deficiency Start: 01-01-2025 End: [facility]-01[facility]: 01-01-[facility]25 End: 01-01-2025 ambulatory MAY DUNLAP [facility] Start: 12-15-2024 End: 12-15-2024 Emergency department patient visit RIDDHI PLATA [facility] Start: 10-30-2024 End: 10-30-2024 Orders Only Nilam Stallworth RN Work Phone: [facility] Comment on above: Malnutrition followi ng gastrointestinal surgery (Primary Dx); Postsurgical malabsorption; H/O gastric bypass; History of anemia Start: 10-10-2024 End: 10-10-2024 Office outpatient visit 15 minutes Riddhi Plata MD Work Phone: [facility] Comment on above: Influenza A (Primary Dx); Fever, unspecified fever cause Start: 10-10-2024 End: 10-10-2024 ambulatory RIDDHI PLATA Not Available Start: 10-10-2024 End: 10-10-2024 Bamboo flowsheet Riddhi Plata MD Work Phone: [facility] Start: 10-10-2024 End: 10-10-2024 Jennifero flowsheet Riddhi Plata MD Work Phone: [facility] Start: 08-25-2024 End: 08-25-2024 Bamboo flowsheet Riddhi Plata MD Work Phone: [facility] Start: 08-25-2024 End: 08-25-2024 Bamboo flowsheet Riddhi Plata MD Work Phone: [facility] Start: 08-25-2024 End: 08-25-2024 Office outpatient visit 15 minutes Riddhi Plata MD Work Phone: [facility] Comment on above: Non-recurrent acute serous otitis media of left ear (Primary Dx); Bariatric surgery status; Vitamin D deficiency; Iron deficiency anemia, unspecified iron deficiency anemia type Start: 08-25-2024 End: 08-25-2024 ambulatory RIDDHI PLATA Not Available Start: 06-12-2024 End: 06-12-2024 ambulatory RIDDHI PLATA Not Available Start: 06-12-2024 End: 06-12-2024 Office outpatient visit 15 minutes Riddhi Plata MD Work Phone: [facility] Comment on above: Acute cystitis with hematuria (Primary Dx); Dysuria Start: 06-12-2024 End: 06-12-2024 Bamboo flowsheet Riddhi Plata MD Work Phone: [facility] Start: 06-12-2024 End: 06-12-2024 Bamboo flowsheet Riddhi Plata MD Work Phone: [facility] Start: 06-04-2024 End: 06-04-2024 Ambulatory [facility] General Surgery-Bariatric Start: 06-04-2024 End: 06-04-2024 Admission to same day surgery center Tonia Manzo MD Work Phone: [facility] Comment on above: Dietary counseling a nd surveillance (Primary Dx); Malnutrition following gastrointestinal surgery; Postsurgical malabsorption; H/O gastric bypass Malnutrition followi ng gastrointestinal surgery (Primary Dx); Postsurgical malabsorption; H/O gastric bypass; B12 deficiency Start: 05-01-2024 End: 05-01-2024 Admission to same day surgery center Les Jose Maria [facility] Comment on above: Dietary counseling a nd surveillance (Primary Dx); Morbid obesity (CMS-HCC); Malnutrition following gastrointestinal surgery; Postsurgical malabsorption Start: 05-01-2024 End: 05-01-2024 Postop follow up visit related to original px Tonia Manzo MD Work Phone: [facility] Comment on above: LUCIANO on CPAP (Primary Dx); H/O gastric bypass; Postoperative malabsorption; Malnutrition following gastrointestinal surgery Start: 05-01-2024 End: 05-01-2024 ambulatory LES DIANE [facility] Start: 05-01-2024 End: 05-01-2024 ambulatory TONIA MANZO [facility] Start: 04-27-2024 End: 04-27-2024 Telephone encounter Shayy Alonso [facility] Comment on above: bloody mocus Start: 04-24-2024 End: 04-24-2024 Evaluation and management of inpatient RIDDHI PLATA [facility] Start: 04-23-2024 End: 04-24-2024 Evaluation and management of inpatient Tonia Manzo MD Work Phone: [facility] 5E Acute Comment on above: Class 3 severe obesi ty due to excess calories with serious comorbidity and body mass index (BMI) of 60.0 to 69.9 in adult ([facility]) (Primary Dx); History of pulmonary embolism; Acute post-operative pain Start: 04-17-2024 End: 04-17-2024 Telephone encounter Nilam Stalwlorth RN Work Phone: [facility] Start: 04-15-2024 End: 04-15-2024 Office outpatient visit 5 minutes [facility] Surg Nurse [facility] Comment on above: Morbid obesity with BMI of 60.0-69.9, adult ([facility]) (Primary Dx) Start: 04-15-2024 End: 04-15-2024 Patient encounter status Nilam Stallworth RN Work Phone: [facility] [employer] [facility] Work Phone: Start: 04-15-2024 Encounter for other preprocedural examination [facility] Start: 04-15-2024 End: 04-15-2024 Orders Only Nilam Stallworth RN Work Phone: [facility] Comment on above: Preop testing (Prima ry Dx) Pre-op testing (Prim joey Dx) Start: 03-27-2024 End: 03-27-2024 ambulatory TONIA M [facility] Start: 03-27-2024 End: 03-27-2024 Office outpatient visit 10 minutes Tonia Manzo MD Work Phone: [facility] Comment on above: PONV (postoperative nausea and vomiting) (Primary Dx); Unable to assess patient's smoking status within the last 12 months; Constipation, unspecified constipation type; Vitamin D deficiency; Chronic RUQ pain Start: 03-27-2024 End: 03-27-2024 ambulatory [facility] Maria Elena [facility] Start: 03-24-2024 End: 03-24-2024 ambulatory TONIA MANZO [facility] Start: 03-24-2024 Encounter for other preprocedural examination MAYBRIANNA DUNLAP [facility] Start: 03-17-2024 End: 03-17-2024 Office consultation new/estab patient 40 min Max Bhandari MD Work Phone: [facility] Comment on above: Preop cardiovascular exam (Primary Dx) Start: 03-17-2024 End: 03-17-2024 Patient encounter status Max Bhandari MD Work Phone: [facility] Start: 03-17-2024 End: 03-17-2024 ambulatory [facility] Start: 03-17-2024 Encounter for preprocedural cardiovascular examination [facility] Start: 03-12-2024 End: 03-12-2024 Telephone encounter Anne [facility] Start: 03-06-2024 End: 03-06-2024 Telemedicine consultation with patient Les Nogueirasanford RODRIGUEZ [facility] Comment on above: Pre-bariatric surger y nutrition evaluation (Primary Dx); Morbid obesity ([facility]) Start: 03-06-2024 End: 03-06-2024 ambulatory [facility] Start: 02-07-2024 End: 02-07-2024 Telemedicine consultation with patient Les Nogueirasanford RODRIGUEZ [facility] Comment on above: Pre-bariatric surger y nutrition evaluation (Primary Dx); Morbid obesity ([facility]) Start: 02-07-2024 End: 02-07-2024 ambulatory [facility] Start: 01-17-2024 End: 01-17-2024 Orders Only Isa Lehman [facility] Comment on above: Preop testing (Prima ry Dx) Start: 01-17-2024 End: 01-17-2024 [facility] Start: 01-02-2024 End: 01-02-2024 Admission to same day surgery center Les Diane RD [facility] Comment on above: Pre-bariatric surger y nutrition evaluation (Primary Dx); Morbid obesity ([facility]) Start: 12-05-2023 Patient encounter procedure Aby Davey [facility] Start: 12-05-2023 End: 12-05-2023 Admission to same day surgery center Les Diane RD [facility] Comment on above: Pre-bariatric surger y nutrition evaluation (Primary Dx); Morbid obesity ([facility]) Start: 11-08-2023 End: 11-08-2023 Admission to same day surgery center Les Diane RD [facility] Comment on above: Pre-bariatric surger y nutrition evaluation (Primary Dx); Morbid obesity ([facility]) Start: 10-10-2023 End: 10-10-2023 Office outpatient new 30 minutes Patel Alcaraz MD Work Phone: [facility] Comment on above: Preop testing (Prima ry Dx); LUCIANO on CPAP; History of pulmonary embolism; Class 2 severe obesity due to excess calories with serious comorbidity in adult, unspecified BMI ([facility]); Essential hypertension Start: 10-10-2023 End: 10-10-2023 Patient encounter status Patel Alcaraz MD Work Phone: [facility] Start: 10-09-2023 Telephone encounter [facility] Start: 10-09-2023 End: 10-09-2023 Admission to same day surgery center Les Diane RD [facility] Comment on above: Pre-bariatric surger y nutrition evaluation (Primary Dx); Morbid obesity ([facility]) Start: 09-27-2023 End: 09-27-2023 ambulatory [facility] Maria Elena COLTEN [facility] Start: 09-27-2023 End: 09-27-2023 Office outpatient visit 10 minutes Jalyn Vidal DO Work Phone: [facility] Comment on above: Mild intermittent as thma, unspecified whether complicated (Primary Dx); LUCIANO on CPAP Start: 09-26-2023 Chart abstracting Scanning Pro vider External [facility] Start: 09-06-2023 End: 09-06-2023 Admission to same day surgery center Les Diane RD [facility] Comment on above: Pre-bariatric surger y nutrition evaluation (Primary Dx); Morbid obesity ([facility]) Start: 09-06-2023 End: 09-06-[address] [facility] Start: 11-03-2022 End: 11-03-[address] BIN MORALES . Facility: Start: 10-29-2022 Encounter for other preprocedural examination DR BIN MORALES . [facility] Start: 10-29-2022 Encounter for preprocedural cardiovascular examination DR BIN MORALES . [facility] Start: 10-24-2022 End: 10-25-[address] BIN MORALES . Facility:[facility] Start: 10-24-2022 End: 10-25-2022 Encounter for other preprocedural examination DR BIN MORALES . Facility: Start: 09-26-2022 End: 09-27-[address] ASHLEY GRIER Facility:[facility] Start: 08-09-[address] BIN MORALES . Facili ty:[facility] Start: 08-04-[address] BIN MORALES . Facili ty:[facility] Start: 07-01-2022 End: 07-02-[address] ASHLEY GRIER Facility:[facility] Start: 06-27-2022 End: 06-27-[address] BIN MORALES . Facility: Start: 12-05-2021 End: 12-05-2021 Emergency department patient visit DUARTE SOSA [facility] Start: 12-05-2021 End: 12-05-2021 Emergency department patient visit Duarte Sosa MD Work Phone: [facility] ED Comment on above: Shortness of breath (Primary Dx) Start: 11-30-2021 End: 12-01-2021 Evaluation and management of inpatient MARILEE MEDINA [facility] Start: 11-30-2021 End: 12-01-2021 Evaluation and management of inpatient Gunjan Maria Elena Valentino DO [facility] Comment on above: Acute pulmonary embo lism, unspecified pulmonary embolism type, unspecified whether acute cor pulmonale present (HCC) (Primary Dx) Start: 11-26-2021 End: 11-29-2021 Evaluation and management of inpatient ISIDRO MARTÍNEZ [facility] Start: 11-26-2021 End: 11-29-2021 Evaluation and management of inpatient Marielos Torres MD Work Phone: [id number] Comment on above: Preeclampsia in post period (Primary Dx) Start: 11-25-2021 End: 11-26-2021 Emergency department patient visit TONIA GARIBAY [facility] Start: 11-25-2021 End: 11-26-2021 Emergency department patient visit Tonia Garibay DO Work Phone: [facility] ED Comment on above: Preeclampsia in post period (Primary Dx) Start: 11-21-[address] BIN MORALES . Facili ty:[facility] Start: 11-20-2021 End: 11-23-2021 Evaluation and management of inpatient DR CLARKE SCHUMACHER . Facility: Start: 11-17-2021 End: 11-17-[address] BIN MORALES . Facility: Start: 01-06-2019 End: 01-07-2019 Patient encounter procedure DEFAULT PHYSICIAN Facility:[facility] Procedures Date Procedure Procedure Detail Performing Clinician Start: 03-20-2025 Urnls dip stick/tabl et rgnt non-auto w/o micrscp Bin Morales DO Work Phone: Start: 01-01-2025 Follow-up visit Follow-up AKBAR GUTHRIE Start: 10-10-2024 STATUS COVID-19/FLU Kaley Plata MD Work Phone: Start: 06-12-2024 Urnls dip stick/tabl et rgnt non-auto w/o micrscp Riddhi Plata MD Work Phone: Start: 05-01-2024 AMB REFERRAL TO [facility] Tonia Manzo MD Work Phone: Start: 04-24-2024 Creatinine blood Arias Manzo MD Work Phone: Start: 04-23-2024 End: 04-23-2024 Laps gstr rstcv px w/byp bonnie-en-y limb <150 cm Tonia Manzo MD Work Phone: Start: 04-23-2024 Urine test visual color cmprsn meths Tonia Manzo MD Work Phone: Start: 04-23-2024 Adult depression scr eening assessment Shayy Alonso RMA Start: 04-15-2024 Basic metabolic pane l calcium total Hamilton Lee MD Work Phone: Start: 03-24-2024 Antibody helicobacte r pylori MAY DUNLAP Comment on above: Result Comment: NOTE Result indicates the absence of current Helicobacter pylori infection. Test Performed by: [place] [address] Kettle Operator Head: Jayce Daniels Ph.D.; CLIA# [id number] Performed By: #### H A1C, FEPR, 96015-7, 3016-3, 2284-8, 2132-9, 60615-6 #### [facility] ([id number]) [address] [place] [address], [address] [place] [address] #### [id number] #### [facility] ([id number]) [address] [place] [address], [place] [address] Start: 03-17-2024 Ecg routine ecg w/le ast 12 lds w/i&r Osiris Venegas MD Work Phone: Start: 10-10-2023 Ecg routine ecg w/le ast 12 lds w/i&r Theodora Early MD Work Phone: Start: 12-05-2021 Ecg routine ecg w/le ast 12 lds w/i&r Tonia Wolfe PA-C Start: 12-05-2021 Basic metabolic pane l calcium total Tonia Wolfe PA-C Start: 12-05-2021 Radiologic exam ches t single view Tonia Isidro Wolfe PA-C Start: 12-01-2021 Echo tthrc r-t 2d w/wom-mode compl spec&colr d Mairaniraj Gill KNITTER MACHINE - COMPUTED TOMOGRAPHY TECHNOLOGIST Work Phone: Start: 12-01-2021 ANTI-XA, UNFRACTIONA KATJA HEPARIN Timothy Hill KNITTER MACHINE - COMPUTED TOMOGRAPHY TECHNOLOGIST Work Phone: Start: 12-01-2021 End: 12-01-2021 Assay of magnesium Nevaeh Deckersullivan KNITTER MACHINE - COMPUTED TOMOGRAPHY TECHNOLOGIST Work Phone: Start: 12-01-2021 Lipid panel Nevaeh Vela [facility] KNITTER MACHINE - [facility] Work Phone: Start: 12-01-2021 Blood count complete automated Nevaeh Deckersullivan KNITTER MACHINE - COMPUTED TOMOGRAPHY TECHNOLOGIST Work Phone: Start: 11-30-2021 Ct thorax w/contrast material Bandar Vaughan KNITTER MACHINE - COMPUTED TOMOGRAPHY TECHNOLOGIST Work Phone: Start: 11-30-2021 Assay of troponin quantitative Bandar Vaughan KNITTER MACHINE - COMPUTED TOMOGRAPHY TECHNOLOGIST Work Phone: Start: 11-30-2021 Urinalysis microscopic only Badnar Vaughan KNITTER MACHINE - COMPUTED TOMOGRAPHY TECHNOLOGIST Work Phone: Start: 11-30-2021 Urnls dip stick/tabl et rgnt auto w/o microscopy Bandar Vaughan KNITTER MACHINE - COMPUTED TOMOGRAPHY TECHNOLOGIST Work Phone: Start: 11-30-2021 Radiologic exam ches t single view Bandar Vaughan KNITTER MACHINE - COMPUTED TOMOGRAPHY TECHNOLOGIST Work Phone: Start: 11-30-2021 End: 11-30-2021 Lactate dehydrogenase ldh Bandar Vaughan KNITTER MACHINE - COMPUTED TOMOGRAPHY TECHNOLOGIST Work Phone: Start: 11-30-2021 Ecg routine ecg w/le ast 12 lds w/i&r Bandar Vaughan KNITTER MACHINE - COMPUTED TOMOGRAPHY TECHNOLOGIST Work Phone: Start: 11-26-2021 Ct thorax w/contrast material Yessi Milton DO Work Phone: Start: 11-26-2021 Comprehensive metabo lic panel Yessi Milton DO Work Phone: Start: 11-26-2021 COVID-19, RAPID Tonia Garibay DO Work Phone: Start: 11-25-2021 End: 11-25-2021 Basic metabolic panel calcium total Tonia Garibay DO Work Phone: Start: 11-25-2021 Hepatic function panel Tonia Garibay DO Work Phone: Start: 11-25-2021 Urinalysis microscopic only Tonia Garibay DO Work Phone: Start: 11-25-2021 Urnls dip stick/tabl et rgnt auto w/o microscopy Tonia Garibay DO Work Phone: Start: 11-21-2021 Delivery of Products of Conception, External Approach DR BIN MORALES . Start: 11-21-2021 Drainage of Amniotic Fluid, Therapeutic from Products of Conception, Via Natural or Artificial Opening DR BIN MORALES . Start: 11-20-2021 Introduction of Othe r Hormone into Peripheral Vein, Percutaneous Approach DR BIN MORALES . History of gastroint estinal tract bypass History of Bonnie-en-Y gastric bypass Tonia Manzo MD Work Phone: Plan of Treatment Date Care Activity Detail Author Start: 06-07-2028 Screening for malign ant neoplasm of cervix [facility] Start: 01-01-2026 Adult BMI Screening Adult BMI Screen ing [facility] Start: 01-01-2026 Tobacco Screening Tobacco Screening [facility] Start: 06-04-2025 Adult BMI Screening Adult BMI Screen ing [facility] Start: 05-11-2025 Influenza vaccination P [facility] Start: 05-01-2025 Adult BMI Follow Up Plan Adult BMI F ollow Up Plan [facility] Start: 05-01-2025 Adult BMI Screening Adult BMI Screen ing [facility] Start: 05-01-2025 Tobacco Screening Tobacco Screening [facility] Start: 04-24-2025 Adult BMI Screening Adult BMI Screen ing [facility] Start: 04-23-2025 Depression Screening Depression Scre ening [facility] Start: 04-23-2025 Tobacco Screening Tobacco Screening [facility] Start: 04-23-2025 End: 04-23-2025 Patient encounter procedure 04/23/2025 8:30 AM EDT Office Visit [facility] [address] [place] [address] Tonia Manzo MD [address], [facility] [address] [place] [address] [facility] Start: 04-20-2025 End: 04-20-2025 Patient encounter procedure 04/20/2025 9:10 AM EDT Routine [facility] [address] [phone] Bin Morales, DO [address] [place], [place] [id number] [facility] Start: 04-15-2025 Adult BMI Screening Adult BMI Screen ing [facility] Start: 04-15-2025 Tobacco Screening Tobacco Screening [facility] Start: 04-10-2025 End: 04-10-2026 Calcium [Mass/volume] in Serum or Plasma Calcium Lab Routine History of Bonnie-en-Y gastric bypass Postsurgical malabsorption Malnutrition following gastrointestinal surgery Expected: 04/10/2025 (Approximate), Expires: 04/10/2026 [facility] Work Phone: Comment on above: Expected: 04/10/2025 (Approximate), Expires: 04/10/2026 Start: 04-10-2025 End: 04-10-2026 CBC W Auto Differential panel - Blood CBC auto differential Lab Routine History of Bonnie-en-Y gastric bypass Postsurgical malabsorption Malnutrition following gastrointestinal surgery Expected: 04/10/2025 (Approximate), Expires: 04/10/[address] [facility] Comment on above: Expected: 04/10/2025 (Approximate), Expires: 04/10/2026 Start: 04-10-2025 End: 04-10-2026 Copper, S Copper, S Lab Routine History of Bonnie-en-Y gastric bypass Postsurgical malabsorption Malnutrition following gastrointestinal surgery Expected: 04/10/2025 (Approximate), Expires: 04/10/[address] [facility] Comment on above: Expected: 04/10/2025 (Approximate), Expires: 04/10/2026 Start: 04-10-2025 End: 04-10-2026 Cyanocobalamin vitamin b-12 Vitamin B12 Lab Routine History of Bonnie-en-Y gastric bypass Postsurgical malabsorption Malnutrition following gastrointestinal surgery Expected: 04/10/2025 (Approximate), Expires: 04/10/[address] [facility] Comment on above: Expected: 04/10/2025 (Approximate), Expires: 04/10/2026 Start: 04-10-2025 End: 04-10-2026 Ferritin [Mass/volume] in Serum or Plasma Ferritin Lab Routine History of Bonnie-en-Y gastric bypass Postsurgical malabsorption Malnutrition following gastrointestinal surgery History of anemia Expected: 04/10/2025 (Approximate), Expires: 04/10/[address] [facility] Comment on above: Expected: 04/10/2025 (Approximate), Expires: 04/10/2026 Start: 04-10-2025 End: 04-10-2026 Folate Folate Lab Routine History of Bonnie-en-Y gastric bypass Postsurgical malabsorption Malnutrition following gastrointestinal surgery Expected: 04/10/2025 (Approximate), Expires: 04/10/[address] [facility] Comment on above: Expected: 04/10/2025 (Approximate), Expires: 04/10/2026 Start: 04-10-2025 End: 04-10-2026 Iron and TIBC Iron and TIBC Lab Routine History of Bonnie-en-Y gastric bypass Postsurgical malabsorption Malnutrition following gastrointestinal surgery History of anemia Expected: 04/10/2025 (Approximate), Expires: 04/10/[address] [facility] Comment on above: Expected: 04/10/2025 (Approximate), Expires: 04/10/2026 Start: 04-10-2025 End: 04-10-2026 Liver panel Liver panel Lab Routine History of Bonnie-en-Y gastric bypass Postsurgical malabsorption Malnutrition following gastrointestinal surgery Expected: 04/10/2025 (Approximate), Expires: 04/10/[address] [facility] Comment on above: Expected: 04/10/2025 (Approximate), Expires: 04/10/2026 Start: 04-10-2025 End: 04-10-2026 Parathyroid Hormone, intact Parathyroid Hormone, intact Lab Routine History of Bonnie-en-Y gastric bypass Postsurgical malabsorption Malnutrition following gastrointestinal surgery Expected: 04/10/2025 (Approximate), Expires: 04/10/[address] [facility] Comment on above: Expected: 04/10/2025 (Approximate), Expires: 04/10/2026 Start: 04-10-2025 End: 04-10-2026 Thiamin (Vitamin B1), WB Thiamin (Vitamin B1), WB Lab Routine History of Bonnie-en-Y gastric bypass Postsurgical malabsorption Malnutrition following gastrointestinal surgery Expected: 04/10/2025 (Approximate), Expires: 04/10/[address] [facility] Comment on above: Expected: 04/10/2025 (Approximate), Expires: 04/10/2026 Start: 04-10-2025 End: 04-10-2026 Vitamin A (Retinol) Vitamin A (Retinol) Lab Routine History of Bonnie-en-Y gastric bypass Postsurgical malabsorption Malnutrition following gastrointestinal surgery Expected: 04/10/2025 (Approximate), Expires: 04/10/[address] [facility] Comment on above: Expected: 04/10/2025 (Approximate), Expires: 04/10/2026 Start: 04-10-2025 End: 04-10-2026 Vitamin D 25 hydroxy Vitamin D 25 hydroxy Lab Routine History of Bonnie-en-Y gastric bypass Postsurgical malabsorption Malnutrition following gastrointestinal surgery Expected: 04/10/2025 (Approximate), Expires: 04/10/[address] [facility] Comment on above: Expected: 04/10/2025 (Approximate), Expires: 04/10/2026 Start: 04-10-2025 End: 04-10-2026 Zinc, Serum Zinc, Serum Lab Routine History of Bonnie-en-Y gastric bypass Postsurgical malabsorption Malnutrition following gastrointestinal surgery Expected: 04/10/2025 (Approximate), Expires: 04/10/[address] [facility] Comment on above: Expected: 04/10/2025 (Approximate), Expires: 04/10/2026 Start: 03-20-2025 End: 03-20-2026 ABO/Rh ABO/Rh Lab Routine Missed menses , unspecified gestational age ([facility]) Expected: 03/20/2025 (Approximate), Expires: 03/20/2026 [facility] Comment on above: Expected: 03/20/2025 (Approximate), Expires: 03/20/2026 Start: 03-20-2025 End: 03-20-2026 Blood type and Indirect antibody screen panel - Blood Type and screen Lab Routine Missed menses , unspecified gestational age ([facility]) Expected: 03/20/2025 (Approximate), Expires: 03/20/2026 [facility] Work Phone: Comment on above: Expected: 03/20/2025 (Approximate), Expires: 03/20/2026 Start: 03-20-2025 End: 03-20-2026 Drugs of abuse panel - Urine by Screen method Rapid drug screen, urine Lab Routine , unspecified gestational age ([facility]) Encounter for supervision of normal first in first trimester ([facility]) Expected: 03/20/2025 (Approximate), Expires: 03/20/2026 [facility] Comment on above: Expected: 03/20/2025 (Approximate), Expires: 03/20/2026 Start: 03-17-2025 Adult BMI Screening Adult BMI Screen ing [facility] Start: 03-17-2025 Tobacco Screening Tobacco Screening [facility] Start: 03-09-2025 Influenza vaccination Influenza Vacc ine (#1) [facility] Comment on above: Postponed from 05/11 (Patient Refused) Start: 03-06-2025 Adult BMI Screening Adult BMI Screen ing [facility] Start: 02-06-2025 Adult BMI Screening Adult BMI Screen ing [facility] Start: 01-01-2025 Adult BMI Screening Adult BMI Screen ing [facility] Start: 12-08-2024 Tobacco Screening Tobacco Screening [facility] Start: 12-04-2024 Adult BMI Screening [facility] ing [facility] Start: 11-13-2024 End: 11-13-2024 Patient encounter procedure 11/13/2024 11:00 AM EST Office Visit [facility] [address] [place] [phone] Tonia Manzo MD [address] [facility] [address] [place] [address] May Dunlap, KNITTER MACHINE-COMPUTED TOMOGRAPHY TECHNOLOGIST [address] [place] [address] [facility] Start: 11-07-2024 Adult BMI Screening Adult BMI Screen ing [facility] Start: 10-30-2024 End: 10-30-2025 CBC W Auto Differential panel - Blood CBC auto differential Lab Routine Malnutrition following gastrointestinal surgery Postsurgical malabsorption H/O gastric bypass History of anemia Expected: 10/30/2024, Expires: 10/30/2025 [employer] Work Phone: Comment on above: Expected: 10/30/2024 , Expires: 10/30/2025 Start: 10-30-2024 End: 10-30-2025 Cyanocobalamin vitamin b-12 Vitamin B12 Lab Routine Malnutrition following gastrointestinal surgery Postsurgical malabsorption H/O gastric bypass History of anemia Expected: 10/30/2024, Expires: 10/30/2025 [facility] Comment on above: Expected: 10/30/2024 , Expires: 10/30/2025 Start: 10-30-2024 End: 10-30-2025 Ferritin [Mass/volume] in Serum or Plasma Ferritin Lab Routine Malnutrition following gastrointestinal surgery Postsurgical malabsorption H/O gastric bypass History of anemia Expected: 10/30/2024, Expires: 10/30/2025 [facility] Comment on above: Expected: 10/30/2024 , Expires: 10/30/2025 Start: 10-30-2024 End: 10-30-2025 Folate Folate Lab Routine Malnutrition following gastrointestinal surgery Postsurgical malabsorption H/O gastric bypass History of anemia Expected: 10/30/2024, Expires: 10/30/[address] [facility] Comment on above: Expected: 10/30/2024 , Expires: 10/30/2025 Start: 10-30-2024 End: 10-30-2025 Iron and TIBC Iron and TIBC Lab Routine Malnutrition following gastrointestinal surgery Postsurgical malabsorption H/O gastric bypass History of anemia Expected: 10/30/2024, Expires: 10/30/[address] [facility] Comment on above: Expected: 10/30/2024 , Expires: 10/30/2025 Start: 10-30-2024 End: 10-30-2025 Liver panel Liver panel Lab Routine Malnutrition following gastrointestinal surgery Postsurgical malabsorption H/O gastric bypass History of anemia Expected: 10/30/2024, Expires: 10/30/[address] [facility] Comment on above: Expected: 10/30/2024 , Expires: 10/30/2025 Start: 10-30-2024 End: 10-30-2025 Thiamin (Vitamin B1), WB Thiamin (Vitamin B1), WB Lab Routine Malnutrition following gastrointestinal surgery Postsurgical malabsorption H/O gastric bypass History of anemia Expected: 10/30/2024, Expires: 10/30/[address] [facility] Comment on above: Expected: 10/30/2024 , Expires: 10/30/2025 Start: 10-30-2024 End: 10-30-2025 Vitamin D 25 hydroxy Vitamin D 25 hydroxy Lab Routine Malnutrition following gastrointestinal surgery Postsurgical malabsorption H/O gastric bypass History of anemia Expected: 10/30/2024, Expires: 10/30/[address] [facility] Comment on above: Expected: 10/30/2024 , Expires: 10/30/2025 Start: 10-26-2024 Tobacco Screening Tobacco Screening [facility] Start: 10-10-2024 End: 10-10-2024 Patient encounter procedure 10/10/2024 3:40 PM EST Office Visit [facility] [address] [place] [address] Riddhi Plata MD [address] [place], [place] [phone] Arrived [facility] Comment on above: Arrived Start: 10-10-2024 Adult BMI Screening Adult BMI Screen ing [facility] Start: 10-10-2024 Tobacco Screening Tobacco Screening [facility] Start: 09-27-2024 Adult BMI Screening Adult BMI Screen ing [facility] Start: 09-27-2024 Tobacco Screening Tobacco Screening [facility] Start: 09-06-2024 Adult BMI Screening Adult BMI Screen ing [facility] Start: 08-25-2024 End: 08-25-2025 25-hydroxyvitamin D3 [Mass/volume] in Serum or Plasma Vitamin D 25 hydroxy Lab Routine Bariatric surgery status Vitamin D deficiency Expected: 08/25/2024 (Approximate), Expires: 08/25/2025 [facility] Comment on above: Expected: 08/25/2024 (Approximate), Expires: 08/25/2025 Start: 08-25-2024 End: 08-25-2025 CBC W Auto Differential panel - Blood CBC and differential Lab Routine Bariatric surgery status Vitamin D deficiency Iron deficiency anemia, unspecified iron deficiency anemia type Expected: 08/25/2024 (Approximate), Expires: 08/25/2025 [facility] Comment on above: Expected: 08/25/2024 (Approximate), Expires: 08/25/2025 Start: 08-25-2024 End: 08-25-2025 Cobalamin (Vitamin B12) [Mass/volume] in Serum or Plasma Vitamin B12 Lab Routine Bariatric surgery status Vitamin D deficiency Iron deficiency anemia, unspecified iron deficiency anemia type Expected: 08/25/2024 (Approximate), Expires: 08/25/2025 [facility] Work Phone: Comment on above: Expected: 08/25/2024 (Approximate), Expires: 08/25/2025 Start: 08-25-2024 End: 08-25-2025 Iron + transferrin + TIBC Iron + transferrin + TIBC Lab Routine Bariatric surgery status Vitamin D deficiency Iron deficiency anemia, unspecified iron deficiency anemia type Expected: 08/25/2024 (Approximate), Expires: 08/25/2025 [facility] Comment on above: Expected: 08/25/2024 (Approximate), Expires: 08/25/2025 Start: 08-25-2024 End: 08-25-2024 Patient encounter procedure 08/25/2024 8:20 AM EST Office Visit [facility] [address] [facility] [place] [phone] Riddhi Plata MD [address] [facility] [place] [address] Arrived [facility] Comment on above: Arrived Start: 08-08-2024 Adult BMI Screening Adult BMI Screen ing [facility] Start: 07-31-2024 End: 04-30-2025 CBC W Auto Differential panel - Blood CBC auto differential Lab Routine H/O gastric bypass Postoperative malabsorption Malnutrition following gastrointestinal surgery Expected: 07/31/2024 (Approximate), Expires: 04/30/2025 [employer] Work Phone: Comment on above: Expected: 07/31/2024 (Approximate), Expires: 04/30/2025 Start: 07-31-2024 End: 04-30-2025 Cyanocobalamin vitamin b-12 Vitamin B12 Lab Routine H/O gastric bypass Postoperative malabsorption Malnutrition following gastrointestinal surgery Expected: 07/31/2024 (Approximate), Expires: 04/30/2025 [facility] Comment on above: Expected: 07/31/2024 (Approximate), Expires: 04/30/2025 Start: 07-31-2024 End: 04-30-2025 Folate Folate Lab Routine H/O gastric bypass Postoperative malabsorption Malnutrition following gastrointestinal surgery Expected: 07/31/2024 (Approximate), Expires: 04/30/2025 [facility] Comment on above: Expected: 07/31/2024 (Approximate), Expires: 04/30/2025 Start: 07-31-2024 End: 04-30-2025 Iron [Mass/volume] in Serum or Plasma Iron Lab Routine H/O gastric bypass Postoperative malabsorption Malnutrition following gastrointestinal surgery Expected: 07/31/2024 (Approximate), Expires: 04/30/2025 [facility] Comment on above: Expected: 07/31/2024 (Approximate), Expires: 04/30/2025 Start: 07-31-2024 End: 04-30-2025 Liver panel Liver panel Lab Routine H/O gastric bypass Postoperative malabsorption Malnutrition following gastrointestinal surgery Expected: 07/31/2024 (Approximate), Expires: 04/30/[address] [facility] Comment on above: Expected: 07/31/2024 (Approximate), Expires: 04/30/2025 Start: 07-31-2024 End: 04-30-2025 Thiamin (Vitamin B1), WB Thiamin (Vitamin B1), WB Lab Routine H/O gastric bypass Postoperative malabsorption Malnutrition following gastrointestinal surgery Expected: 07/31/2024 (Approximate), Expires: 04/30/[address] [facility] Comment on above: Expected: 07/31/2024 (Approximate), Expires: 04/30/2025 Start: 07-31-2024 End: 04-30-2025 Vitamin D 25 hydroxy Vitamin D 25 hydroxy Lab Routine H/O gastric bypass Postoperative malabsorption Malnutrition following gastrointestinal surgery Expected: 07/31/2024 (Approximate), Expires: 04/30/[address] [facility] Comment on above: Expected: 07/31/2024 (Approximate), Expires: 04/30/2025 Start: 07-24-2024 End: 07-24-2024 Patient encounter procedure 07/24/2024 11:30 AM EST Office Visit [facility] [address] [place] [phone] Tonia Manzo MD [address] [address] May Dunlap, KNITTER MACHINE-COMPUTED TOMOGRAPHY TECHNOLOGIST [address] [place] [id number] [facility] Start: 07-19-2024 Tobacco Screening Tobacco Screening [facility] Start: 06-12-2024 End: 06-12-2025 Bacteria identified in Urine by Culture Urine culture (clean catch) Microbiology Routine Dysuria Expected: 06/12/2024 (Approximate), Expires: 06/12/2025 [facility] Work Phone: Comment on above: Expected: 06/12/2024 (Approximate), Expires: 06/12/2025 Start: 06-12-2024 End: 06-12-2025 Urinalysis complete panel - Urine Urinalysis with reflex microscopic (clean catch) Lab Routine Dysuria Expected: 06/12/2024 (Approximate), Expires: 06/12/2025 [facility] Comment on above: Expected: 06/12/2024 (Approximate), Expires: 06/12/2025 Start: 06-04-2024 End: 06-04-2024 ambulatory 06/04/2024 10:30 AM EDT Support Visit [facility] [address] [place] [address] Tonia Manzo MD [address] [id number] [address] [facility] Start: 06-02-2024 End: 06-02-2024 ambulatory 06/02/2024 1:00 PM EDT Support Visit [facility] [address] [place] [address] Tonia Manzo MD [address] [address] Belem Pleitez LD [facility] Start: 05-11-2024 Influenza vaccination N [facility] Start: 05-01-2024 End: 05-01-2024 Patient encounter procedure 05/01/2024 1:30 PM EDT Office Visit [facility] [address] [place] [address] Tonia Manzo MD [address] [id number] [facility] Start: 05-01-2024 End: 05-01-2024 ambulatory 05/01/2024 1:00 PM EDT Support Visit [facility] [address] [place] [phone] [facility] Start: 04-23-2024 End: 04-23-2024 Admission to same day surgery center 04/23/2024 9:30 AM EDT - 04/23/2024 11:30 AM EDT Surgery [address] [phone] Tonia Manzo MD [address], [place] [address] [place] [id number] [facility] [61403 (CPT )] [facility] Comment on above: [facility] [82708 (CPT )] Start: 04-23-2024 End: 04-23-2024 Laps gstr rstcv px w/byp bonnie-en-y limb <150 cm [facility] MORBID OBESITY/HYPERTENSION 04/23/2024 9:30 AM EDT [facility] Start: 04-23-2024 Subsequent hospital visit by physician 04/23/2024 9:30 AM EDT Hospital Encounter [address] [place] [phone] Tonia Manzo MD [address], [place] [address] [place], [place] [phone] [facility] Start: 04-15-2024 End: 04-15-2025 XR Chest PA and Lateral [facility] Work Phone: Comment on above: Expected: 04/15/2024 (Approximate), Expires: 04/15/2025 Start: 03-27-2024 End: 07-12-2025 Nicotine and Metabolites, Random, Urine Nicotine and Metabolites, Random, Urine Lab Routine Unable to assess patient's smoking status within the last 12 months Expected: 03/27/2024, Expires: 2025 [facility] Work Phone: Comment on above: Expected: 03/27/2024 , Expires: 2025 Start: 03-27-2024 End: 03-27-2025 US Abdomen limited Ultrasound abdomen limited Imaging Routine Chronic RUQ pain Expected: 03/27/2024, Expires: 03/27/[address] [facility] Comment on above: Expected: 03/27/2024 , Expires: 03/27/2025 Start: 03-27-2024 End: 03-27-2024 Patient encounter procedure 03/27/2024 1:30 PM EDT Office Visit [facility] Physicians General Surgery-Bariatric [address] [place] [phone] Tonia Manzo MD [address] [address] [facility] General Surgery-Bariatric Start: 03-23-2024 Adult BMI Follow Up Plan Adult BMI F ollow Up Plan [facility] Start: 03-17-2024 End: 01-16-2025 Cyanocobalamin vitamin b-12 Vitamin B12 Lab Routine Preop testing Expected: 03/17/2024, Expires: 01/16/[address] [facility] Comment on above: Expected: 03/17/2024 , Expires: 01/16/2025 Start: 03-17-2024 End: 01-16-2025 Folate Folate Lab Routine Preop testing Expected: 03/17/2024, Expires: 01/16/[address] [facility] Comment on above: Expected: 03/17/2024 , Expires: 01/16/2025 Start: 03-17-2024 End: 01-16-2025 H Pylori Breath Adult H Pylori Breath Adult Lab Routine Preop testing Expected: 03/17/2024, Expires: 01/16/[address] [facility] Comment on above: Expected: 03/17/2024 , Expires: 01/16/2025 Start: 03-17-2024 End: 01-16-2025 Hemoglobin A1c/Hemoglobin.total in Blood Hemoglobin A1c Lab Routine Preop testing Expected: 03/17/2024, Expires: 01/16/2025 [employer] Work Phone: Comment on above: Expected: 03/17/2024 , Expires: 01/16/2025 Start: 03-17-2024 End: 01-16-2025 Iron and TIBC Iron and TIBC Lab Routine Preop testing Expected: 03/17/2024, Expires: 01/16/[address] [facility] Comment on above: Expected: 03/17/2024 , Expires: 01/16/2025 Start: 03-17-2024 End: 01-16-2025 Lipid 1996 panel - Serum or Plasma Lipid profile Lab Routine Preop testing Expected: 03/17/2024, Expires: 01/16/[address] [facility] Comment on above: Expected: 03/17/2024 , Expires: 01/16/2025 Start: 03-17-2024 End: 01-16-2025 Thyrotropin [Units/volume] in Serum or Plasma TSH Lab Routine Preop testing Expected: 03/17/2024, Expires: 01/16/[address] [facility] Comment on above: Expected: 03/17/2024 , Expires: 01/16/2025 Start: 03-17-2024 End: 01-16-2025 Vitamin D 25 hydroxy Vitamin D 25 hydroxy Lab Routine Preop testing Expected: 03/17/2024, Expires: 01/16/[address] [facility] Comment on above: Expected: 03/17/2024 , Expires: 01/16/2025 Start: 03-17-2024 End: 03-17-2024 Patient encounter procedure [facility] Card[facility] Start: 03-06-2024 End: 03-06-2024 Telemedicine consultation with patient 03/06/2024 1:30 PM EDT Telemedicine [facility] [address] [place] [phone] [facility] Start: 02-07-2024 End: 02-07-2024 ambulatory 02/07/2024 1:30 PM EDT Support Visit [facility] [address] [place] [address] [facility] Start: 01-02-2024 End: 01-02-2024 ambulatory 01/02/2024 12:30 PM EDT Support Visit [facility] [address] [place] [address] [facility] Start: 12-12-2023 End: 12-12-2023 Patient encounter procedure 12/12/2023 1:00 PM EDT Appointment [facility] [address] [place] [address] [facility] Start: 12-05-2023 End: 12-05-2023 ambulatory 12/05/2023 1:30 PM EDT Support Visit [facility] [address] [place] [address], [place] [phone] [facility] Start: 11-21-2023 End: 11-21-2023 Patient encounter procedure 11/21/2023 1:00 PM EDT Appointment [facility] [address] [place] [address] Tonia Manzo MD [address] [facility] Start: 11-08-2023 End: 11-08-2023 ambulatory 11/08/2023 11:30 AM EST Support Visit [facility] [address] [place] [address] [facility] Start: 10-10-2023 End: 10-10-2023 Patient encounter procedure 10/10/2023 8:15 AM EST Office Visit [facility] [address] [place] [phone] Patel Alcaraz MD [address] [place] [address] Theodora Early MD [address] [place] [address] [facility] Start: 10-09-2023 End: 10-09-2023 ambulatory 10/09/2023 11:00 AM EST Support Visit [facility] [address] [place] [phone] [facility] Start: 09-27-2023 End: 09-27-2023 Patient encounter procedure 09/27/2023 11:45 AM EST Office Visit [facility] [facility] [place] [phone] Jalyn Vidal DO [address] [address] [facility] Start: 05-11-2023 Influenza vaccination Influenza Vacc ine [facility] Start: 12-05-2022 Creatinine measurement Creatinine mo [facility] Start: 12-05-2022 Potassium monitoring Potassium monit [facility] Start: 12-01-2022 Creatinine measurement Creatinine mo [facility] Start: 12-01-2022 Potassium monitoring Potassium monit [facility] Start: 11-29-2022 Depression Monitoring Depression Mon [facility] Start: 11-26-2022 Creatinine measurement Creatinine mo [facility] Start: 11-26-2022 Potassium monitoring Potassium monit [facility] Start: 12-09-2021 End: 12-09-2021 Patient encounter procedure 12/09/2021 Office Visit Obstetrics and Gynecology Brandie Moore DO [address] [place] [address] [facility] [employer] [facility] [place] Start: 11-30-2021 End: 11-30-2021 Patient encounter procedure 11/30/2021 Office Visit Family Medicine Rochelle Louis MD [address] [place] [address] [facility] Start: 11-30-2021 End: 11-30-2021 Telemedicine consultation with patient 11/30/2021 Telemedicine Family Medicine Rochelle Louis MD [address] [place] [address] [facility] Start: 05-11-2021 Influenza vaccination Flu vaccine (# 1) [facility] Start: 12-01-2018 DTaP,Tdap and Td Vaccines (7 - Td or Tdap) DTaP,Tdap and Td Vaccines (7 - Td or Tdap) [facility] Start: 2015 Screening for malign ant neoplasm of cervix Pap smear [facility] Start: 2013 DTaP/Tdap/Td vaccine (1 - Tdap) DTaP/Tdap/Td vaccine (1 - Tdap) [facility] Start: 2009 HIV screening HIV screen [facility] Start: 2006 Depression Monitoring Depression Mon [facility] Start: 2006 Depression Screen Depression Screen [facility] Start: 2006 Depression Screening Depression Scre ening [facility] Start: 1999 COVID-19 Vaccine (1) COVID-19 Vaccin e (1) [facility] Start: 1995 Varicella vaccine (1 of 2 - 2-dose childhood series) Varicella vaccine (1 of 2 - 2-dose childhood series) [facility] Start: 1994 Hepatitis C screening Hepatitis C sc reen [facility] End: 12-07-2021 Anti-Xa, Unfractionated Heparin Anti-Xa, Unfractionated Heparin Lab Timed Every 6 Hours (Lab) for 7 Days starting 12/01/2021 until 12/07/2021 [employer]: Comment on above: Every 6 Hours (Lab) for 7 Days starting 12/01/2021 until 12/07/2021 Bacteria identified in Urine by Culture Urine culture Microbiology Routine Missed menses Ordered: 03/20/2025 [employer] Comment on above: Ordered: 03/20/2025 CBC panel - Blood by Automated count CBC Lab Routine Every Other Day until discontinued starting 12/02/2021 [employer]: Comment on above: Every Other Day unti l discontinued starting 12/02/2021 CBC W Auto Different ial panel - Blood CBC and differential Lab Routine Missed menses , unspecified gestational age ([facility]) Ordered: 03/20/2025 [employer] Comment on above: Ordered: 03/20/2025 EKG 12 lead EKG 12 lead ECG Routine As Needed until discontinued starting 11/30/2021 [employer]: Comment on above: As Needed until disc ontinued starting 11/30/2021 EKG 12 Lead EKG 12 Lead ECG STAT 11/30/2021 7:35 PM EDT [employer] Phone: EKG 12 Lead EKG 12 Lead ECG STAT 12/05/2021 4:00 PM EDT [employer] Glucose [Mass/volume ] in Serum or Plasma POCT Glucose Point of Care Testing Routine 4X Daily (AC & HS) until discontinued starting 12/01/2021 [employer] Phone: Comment on above: 4X Daily (AC & HS) u ntil discontinued starting 12/01/2021 Hemoglobin A1c/Hemoglobin.total in Blood Hemoglobin A1c Lab Routine Missed menses , unspecified gestational age ([facility]) Ordered: 03/20/2025 [employer] Comment on above: Ordered: 03/20/2025 Hepatitis B virus surface Ag [Presence] in Serum or Plasma by Immunoassay Hepatitis B surface antigen Lab Routine Missed menses , unspecified gestational age ([facility]) Ordered: 03/20/2025 [employer] Comment on above: Ordered: 03/20/2025 Hepatitis C virus Ab [Presence] in Serum or Plasma by Immunoassay Hepatitis C antibody Lab Routine Missed menses , unspecified gestational age ([facility]) [facility]20/2025 [facility] on above: Ordered: 03/20/2025 HIV-1/HIV-2 antigen/antibody combination immunoassay HIV-1 and HIV-2 antibodies Lab Routine Missed menses , unspecified gestational age ([facility]) Ordered: 03/20/2025 [facility] Comment on above: Ordered: 03/20/2025 End: 12-01-2021 Intermittent pulse oximetry Pulse Oximetry Spot Check Respiratory Care Routine One Time for 1 Occurrences starting 12/01/2021 until 12/01/2021 [employer]: Comment on above: One Time for 1 Occur rences starting 12/01/2021 until 12/01/2021 Nicotine and Metabol ites panel [Mass/volume] - Urine Nicotine and Metabolites, Random, Urine Lab Routine Unable to assess patient's smoking status within the last 12 months 03/27/2024 6:08 PM EDT [facility] [employer] Oxygen therapy [[facility] Data Set] Initiate Oxygen Therapy Protocol Respiratory Care Routine As Needed until discontinued starting 11/30/2021 [employer]: Comment on above: As Needed until disc ontinued starting 11/30/2021 POCT EKG POCT EKG ECG Rou octavio Preop testing 10/10/2023 [employer] Phone: POCT EKG POCT EKG ECG Rou octavio Preop cardiovascular exam 03/17/2024 [employer] Phone: Protein Electrophore sis, Urine Protein Electrophoresis, Urine Lab STAT 11/30/2021 9:20 PM EDT [employer]: Reagin Ab [Presence] in Serum by RPR RPR Lab Routine Missed menses , unspecified gestational age ([facility]) Ordered: 03/20/2025 [facility] Comment on above: Ordered: 03/20/2025 Rubella antibody, IgG Rubella an tibody, IgG Lab Routine Missed menses , unspecified gestational age ([facility]) Ordered: 03/20/2025 [facility] Comment on above: Ordered: 03/20/2025 Immunizations Immunization Date Immunization Notes Care Provider Fa cility 08-11-2019 influenza, injectabl e, quadrivalent, preservative free Riddhi Plata MD Work Phone: [facility] 08-11-2019 influenza virus vacc ine, unspecified formulation Les Diane [facility] 02-08-2012 hepatitis A vaccine, pediatric/adolescent dosage, 2 dose schedule Riddhi Plata MD Work Phone: [facility] 07-11-2011 influenza, seasonal, injectable Riddhi Plata MD Work Phone: [facility] 06-08-2009 human papilloma viru s vaccine, quadrivalent Riddhi Plata MD Work Phone: [facility] 02-05-2009 hepatitis A vaccine, pediatric/adolescent dosage, 2 dose schedule Riddhi Plata MD Work Phone: [facility] 02-05-2009 human papilloma viru s vaccine, quadrivalent Riddhi Plata MD Work Phone: [facility] 12-01-2008 hepatitis A vaccine, pediatric/adolescent dosage, 2 dose schedule Riddhi Plata MD Work Phone: [facility] 12-01-2008 human papilloma viru s vaccine, quadrivalent Riddhi Plata MD Work Phone: [facility] 12-01-2008 meningococcal polysaccharide (groups A, C, Y and W-135) diphtheria toxoid conjugate vaccine (MCV4P) Riddhi Plata MD Work Phone: [facility] 12-01-2008 tetanus toxoid, redu lanre diphtheria toxoid, and acellular pertussis vaccine, adsorbed Riddhi Plata MD Work Phone: [facility] 01-14-1999 diphtheria, tetanus toxoids and acellular pertussis vaccine, unspecified formulation Riddhi Plata MD Work Phone: [facility] 01-14-1999 measles, mumps and rubella virus vaccine Riddhi Plata MD Work Phone: [facility] 01-14-1999 poliovirus vaccine, unspecified formulation Riddhi Plata MD Work Phone: [facility] 10-23-1996 diphtheria, tetanus toxoids and acellular pertussis vaccine, unspecified formulation Riddhi Plata MD Work Phone: [facility] 10-23-1996 haemophilus influenz ae type b vaccine, conjugate unspecified formulation Riddhi Plata MD Work Phone: [facility] 01-17-1996 diphtheria, tetanus toxoids and acellular pertussis vaccine, unspecified formulation Riddhi Plata MD Work Phone: [facility] 01-17-1996 haemophilus influenz ae type b vaccine, conjugate unspecified formulation Riddhi Plata MD Work Phone: [facility] 01-17-1996 hepatitis B vaccine, pediatric or pediatric/adolescent dosage Riddhi Plata MD Work Phone: [facility] 01-17-1996 poliovirus vaccine, unspecified formulation Riddhi Plata MD Work Phone: [facility] 09-28-1995 diphtheria, tetanus toxoids and acellular pertussis vaccine, unspecified formulation Riddhi Plata MD Work Phone: [facility] 09-28-1995 haemophilus influenz ae type b vaccine, conjugate unspecified formulation Riddhi Plata MD Work Phone: [facility] 09-28-1995 hepatitis B vaccine, pediatric or pediatric/adolescent dosage Riddhi Plata MD Work Phone: [facility] 09-28-1995 poliovirus vaccine, unspecified formulation Riddhi Plata MD Work Phone: [facility] 03-28-1995 diphtheria, tetanus toxoids and acellular pertussis vaccine, unspecified formulation Riddhi Plata MD Work Phone: [facility] 03-28-1995 haemophilus influenz ae type b vaccine, conjugate unspecified formulation Riddhi Plata MD Work Phone: [facility] 03-28-1995 hepatitis B vaccine, pediatric or pediatric/adolescent dosage Riddhi Plata MD Work Phone: [facility] 03-28-1995 measles, mumps and rubella virus vaccine Riddhi Plata MD Work Phone: [facility] 03-28-1995 poliovirus vaccine, unspecified formulation Ridhdi Plata MD Work Phone: [facility] Healthcare Payers Date Payer Category Payer Private Health Insurance [id number] 2023 Managed Care Other (unspecified) [employer] [id number] 2023 Unknown [id number] 2023 Medicaid (Managed Care) [employer] [id number] 2021 Medicaid [id number] 2021 Medicaid [place] [employer] [id number] 2017 Unknown [id number] 2016 Unknown [id number] 1994 Unknown [id number] 2.16.840.1.692646.3.579.2. 647 1994 Unknown [id number] 2.16.840.1.456358.3.579.2. 177 1994 Unknown [id number] 2.16.840.1.662551.3.579.2. 177 1994 Unknown [id number] 2.16.840.1.793535.3.579.2. 177 1994 Unknown [id number] 2.16.840.1.108964.3.579.2. 175 1994 Unknown [id number] 2.16.840.1.068329.3.579.2. 593 1994 Unknown [id number] 2.16.840.1.214345.3.579.2. 593 1994 Unknown [id number] 2.16.840.1.537005.3.579.2. 593 1994 Unknown [id number] 2.16.840.1.348712.3.579.2. 593 1994 Unknown [id number] 2.16.840.1.943045.3.579.2. 593 1994 Unknown [id number] 2.16.840.1.816038.3.579.2. 593 1994 Unknown [id number] 2.16.840.1.232059.3.579.2. 593 1994 Unknown [id number] 2.16.840.1.933092.3.579.2. 593 1994 Unknown [id number] 2.16.840.1.705666.3.579.2. 593 1994 Unknown [id number] 2.16.840.1.091368.3.579.2. 593 1994 Unknown [id number] 2.16.840.1.330178.3.579.2. 1285 1994 Unknown [id number] 2.16840.1.393296.3.579.2. 1285 1994 Unknown [id number] 2.16.840.1.521228.3.579.2. 1285 1994 Unknown [id number] 2.16840.1.328330.3.579.2. 1285 1994 Unknown [id number] 2.16840.1.700712.3.579.2. 1285 1994 Unknown [id number] 2.0.1.138040.3.579.2. 1285 1994 Unknown [id number] 2.16840.1.942075.3.579.2. 1285 1994 Unknown [id number] 2.840.1.909621.3.579.2. 1285 1994 Unknown [id number] 2.16840.1.653165.3.579.2. 1285 1994 Unknown [id number] 2.840.1.578601.3.579.2. 1285 1994 Unknown [id number] 2.16840.1.840107.3.579.2. 1285 1994 Unknown [id number] 2.16840.1.842678.3.579.2. 1285 1994 Unknown [id number] 2.16840.1.426660.3.579.2. 1285 1994 Unknown [id number] 2.16840.1.442934.3.579.2. 1285 1994 Unknown [id number] 2.16.840.1.608581.3.579.2. 1286 1994 Unknown [id number] 2.16.840.1.071063.3.579.2. 1285 1994 Unknown [id number] 2.16.840.1.666542.3.579.2. 1285 1994 Unknown [id number] 2.16.840.1.792003.3.579.2. 1285 1994 Unknown [id number] 2.16.840.1.769026.3.579.2. 1285 1994 Unknown [id number] 2.16.840.1.533136.3.579.2. 1285 1994 Unknown [id number] 2.16.840.1.111945.3.579.2. 1285 1994 Unknown [id number] 2.16.840.1.822635.3.579.2. 1258 1994 Unknown [id number] 2.16.840.1.320074.3.579.2. 1258 1994 Unknown [id number] 2.16.840.1.893538.3.579.2. 1258 1994 Unknown [id number] 2.16.840.1.982974.3.579.2. 1258 1994 Unknown [id number] 2.16.840.1.016183.3.579.2. 1259 1959 Self-pay [id number] 1959 Unknown [id number] 1.2.840.436380.1.13.239.2. 7.3.967047.315 1959 Unknown [id number] 1.2.840.970855.1.13.239.2. 7.3.744564.315 Unknown Social History Date Type Detail Facility Tobacco smoking stat [facility] Tobacco smoking consumption unknown [employer] Work Phone: Start: 1995 Sex Assigned At Not on file [employer] [facility]: Start: 11-15-2021 End: 12-05-2021 Exposure to SARS-CoV-2 (event) Not sure [employer]: Start: 11-29-2021 End: 05-17-2023 Tobacco smoking status NHIS Never smoked tobacco [employer]: Start: 11-29-2021 End: 05-17-2023 Tobacco use and exposure Smokeless tobacco non-user [employer]: Start: 12-01-2021 End: 03-20-2025 Alcohol intake Lifetime non-drinker (finding) [employer]: Start: 11-29-2021 History SDOH Financial 5 [employer] Phone: Start: 11-29-2021 History SDOH Food Worry 1 [employer] Phone: Start: 03-04-2024 End: 10-11-2024 History of Social function [facility] Start: 03-04-2024 End: 10-11-2024 Tobacco use panel [facility] Start: 05-09-2023 Alcohol Comment Caffeine intake: 1-2 cups per day coffee [facility] Start: 07-19-2023 End: 01-01-2025 Alcohol intake Ex-drinker (finding) [facility] Adolescent depressio n screening assessment [address] [facility] Start: 12-17-2017 Alcohol Comment social [facility] Start: 1995 Sex Assigned At Female [facility] Start: 07-30-2022 Gender identity Identifies as female gender (finding) [facility] Start: 07-30-2022 Sexual orientation Heterosexual (finding) [facility] Has the [employer], [employer], or water [employer] threatened to shut off services in your home in past 12Mo No [facility] How often to you hav e a drink containing alcohol? Never [facility] Start: 04-15-2015 Sex Female (finding) [facility] Start: 01-23-2025 [facility] Goals Date Patient Goal Desired Activity /State Personal health goal Personal health goal Comment on above: Formatting of this n ote might be different from the original. Evaluation of progress towards goal: safe transition from hospital to home with family support. Clinical Notes 11-28-2021 to 03-20-2025 Leslye WANG Chairez - 03/20/2025 9:00 AM Gonzales Guthrie PA-C - 01/01/2025 11:30 AM Lucille Guzmán CMA - 01/01/2025 11:30 AM EDTPatigregg Stallworth RN - 10/30/2024 8:38 AM EST Note Date & Type Note Facility 03-20-2025 History of Present illness Narrative Reason for Appointment: Patient ID: Shira Jett is a 29 y.o. female who presents for Routine Visit Patient presents today for a Nurse OB Intake appointment. Patient is 10w0d with a Estimated Date of Delivery: 10/16/25 OB History Para Term AB Living [...] body mass index of 60.0-69.9 in adult ([facility]) 01/26/2023 Polycystic ovarian disease 01/26/2023 Primary hypertension 01/26/2023 Adjustment disorder with anxiety 11/30/2021 Amnesia 05/17/2023 Anxiety 07/07/2019 Anemia 06/26/2019 Depression 06/13/2019 Disorder of endocrine system 05/17/2023 Family history of diabetes during 11/28/2021 Family history of thrombosis 03/17/2022 Frequent headaches 05/17/2023 Gastroesophageal reflux disease 12/15/2019 Gestational diabetes mellitus (GDM) ([facility]) 12/09/2018 History of diet controlled gestational diabetes mellitus (GDM) 11/30/2021 Iron deficiency anemia 12/29/2019 Irregular periods 05/17/2023 Menorrhagia with regular cycle 05/17/2023 Asthma (HCC) 12/09/2018 Class 3 severe obesity due to excess calories with serious comorbidity and body mass index (BMI) of 50.0 to 59.9 in adult ([facility]) 05/17/2023 Nausea and vomiting 05/17/2023 Pneumonia due to infectious organism 07/30/2022 Preeclampsia in period ([facility]) 11/26/2021 Acute pulmonary embolism ([facility]) 05/17/2023 Single subsegmental pulmonary embolism without acute cor pulmonale ([facility]) 05/17/2023 Seasonal allergic rhinitis due to pollen 12/15/2019 Thyroid nodule 05/17/2023 Urinary tract infection without hematuria 05/17/2023 LUCIANO on CPAP 02/22/2023 History of pulmonary embolism 03/17/2022 Resolved Ambulatory Problems Diagnosis Date Noted No Resolved Ambulatory Problems Past Medical History: Diagnosis Date Acute memory impairment COVID 02/2020 Encounter for insertion of Mirena IUD GERD without esophagitis Gestational diabetes ([facility]) H/O blood clots H/O gastric bypass H/O: hypertension High blood pressure History of being hospitalized Hormone imbalance Intrauterine device surveillance Irregular bleeding Morbid obesity with BMI of 50.0-59.9, adult ([facility]) Nausea Nausea with vomiting Pneumonia 07/30/2022 hypertension ([facility]) Pulmonary embolism ([facility]) 11/2021 Well woman exam Family History Problem [...] Vitals: Estimated body mass index is 42.89 kg/m as calculated from the following: Height as [...] dipstick manually resulted , unspecified gestational age [facility] - Type and screen; Future - ABO/Rh; [...] supervision of normal first in first trimester ([facility]) - Rapid drug screen, urine; Future [...] drink 6-8 glasses of water a day, eat no raw or undercooked meat, and stay away from [facility]. Patient has also been advised to not change litter boxes and eat 6 small meals a day. Patient has been consulted regarding the do's and don'ts of . Patient was given labs and all questions and concerns were answered. Patient given [place] to have completed with initial labs and [...] Leslye Chairez LPN documented in this encounter [facility] 01-01-2025 History of Present illness Narrative Summary: 8 months s/p RYGB, Dr. Manzo Images from the original note were not included. [facility]RIC [address] [place] [id number] Subjective Patient ID: Shira eJtt is a 29 y.o. female who is an established patient. HPI: Shira is here for a late 6 month post-op visit, 8 months after robotic Bonnie-en-Y gastric bypass with Dr. Manzo on 04/23/24. She c/o left hip pain when standing for a long time at work and when she lies on her left side. She denies abdominal pain. Heartburn has improved. No nausea or emesis. Occasional constipation. No diarrhea. No dysphagia. Feeling a little fatigue recently. No rashes. Incisions healed well. Meals: 4-5 meals and snacks. Meal size is under 1 cup. + protein with every meal/snack. Getting about 50-60g of protein QD. Fluids: About 40 oz water SF and Gatorade daily. ETOH: None Tobacco/Nicotine: None NSAIDS: None. 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 Exercise: Just got a gym membership. Walking [address] No formal exercise plan. Control: Condoms. prevention for 12-18 months postop discussed with patient. The following portions of the patient's history were reviewed and updated as appropriate: allergies, current medications, past family history, past medical history, past social history, past surgical history, problem list, and medication reconciliation was completed including current medication and post discharge medication. Weight and Comorbid Conditions: 1. Morbid Obesity Height: 5 ft 1 in [place] body weight: 132 lb BMI 25.0 Personal Goal: To get healthy, stop BP meds, improve LUCIANO Pre op: 359 lb BMI 67.87 1 week post op: 338 lb BMI 63.86 6 weeks post op: NO [employer] VISIT 3 months post op: NO VISIT 8 months post op: 239 lb BMI 45.31 2. GERD - improved, continues on omeprazole 3. LUCIANO - continues using CPAP, feels more rested 4. PCOS - no change in facial hair growth. Has regular periods 5. H/o Vit D deficiency - current labs pending Vitamins: Multivitamin - PNV QD Calcium citrate - OTC calcium BID (meets recommended amts per pt) Vitamin B12 - B12 teaching and rx done 06/04/24, ran out about 2 months ago Other: none Past Medical History: Diagnosis Date ADHD (attention deficit hyperactivity disorder) Allergic Anemia while Anxiety Asthma Back pain Depression GERD (gastroesophageal reflux disease) Gestational diabetes 12/09/2018 Irregular heart beat Menstrual flow excessive Migraine Muscle pain Obesity Obstructive sleep apnea PCOS (polycystic ovarian syndrome) Pneumonia Preeclampsia, severe 11/23/2018 Pulmonary embolism ([facility]) Shortness of breath Visual impairment stigmatism ROS: Review of Systems Constitutional: Negative for fatigue. HENT: Negative for trouble swallowing. Cardiovascular: Negative for leg swelling. Gastrointestinal: Negative for abdominal distention, abdominal pain, constipation, diarrhea, nausea and vomiting. Skin: Negative for rash and wound (Incisions well-healed). Objective Lab Review: No results found for this or any previous visit (from the past 4 weeks). Vitals and Bariatric Vitals: Vitals: 01/01/25 1100 BP: 110/73 BP Site: Left Arm BP Postition: Sitting BP CUFF SIZE: L (13-17 inches) Pulse: 84 SpO2: 100% Weight: 108.7 kg (239 lb 11.2 oz) Height: 154.9 cm (5' 0.98 ) # Days Post Op: (LATE 6 MONTH bypass [place] 04/23/24) Weight: 108.7 kg (239 lb 11.2 oz) BMI: 45.31 Decrease in BMI: 22.56 Weight Lost (kg): 54.11 Weight Lost (lbs): 119.29 % Decreased BMI: 33.24 % Decreased Excess Weight: 52.55 Physical Exam Vitals reviewed. Constitutional: General: She is not in acute distress. Appearance: Normal appearance. She is obese. She is not ill-appearing, toxic-appearing or diaphoretic. HENT: Head: Normocephalic and atraumatic. Mouth/Throat: Mouth: Mucous membranes are moist. Pulmonary: Effort: Pulmonary effort is normal. Skin: Coloration: Skin is not jaundiced or pale. Neurological: Mental Status: She is alert and oriented to person, place, and time. Psychiatric: Mood and Affect: Mood normal. Behavior: Behavior normal. Behavior is cooperative. Thought Content: Thought content normal. Assesment and Plan: Shira was seen today for follow-up and injection. Diagnoses and all orders for this visit: History of Bonnie-en-Y gastric bypass - Calcium; Future - CBC auto differential; Future - Copper, S; Future - Ferritin; Future - Folate; Future - Iron and TIBC; Future - Zinc, Serum; Future - Vitamin D 25 hydroxy; Future - Vitamin B12; Future - Vitamin A (Retinol); Future - Thiamin (Vitamin B1), WB; Future - Parathyroid Hormone, intact; Future - Liver panel; Future Postsurgical malabsorption - Calcium; Future - CBC auto differential; Future - Copper, S; Future - Ferritin; Future - Folate; Future - Iron and TIBC; Future - Zinc, Serum; Future - Vitamin D 25 hydroxy; Future - Vitamin B12; Future - Vitamin A (Retinol); Future - Thiamin (Vitamin B1), WB; Future - Parathyroid Hormone, intact; Future - Liver panel; Future Malnutrition following gastrointestinal surgery - Calcium; Future - CBC auto differential; Future - Copper, S; Future - Ferritin; Future - Folate; Future - Iron and TIBC; Future - Zinc, Serum; Future - Vitamin D 25 hydroxy; Future - Vitamin B12; Future - Vitamin A (Retinol); Future - Thiamin (Vitamin B1), WB; Future - Parathyroid Hormone, intact; Future - Liver panel; Future History of anemia - Ferritin; Future - Iron and TIBC; Future B12 deficiency - cyanocobalamin (VITAMIN B-12) injection 1,000 mcg 8 months s/p RYGB, down 119.29 lbs (52.55% EBWL) Continue high protein, high veggie diet Can start eating nuts, seeds, fruits with skins and raw vegetables Consume 4-5 small meals per day, eating something every 3-4 hours Continue water intake; goal is at least 64 oz of water per day Increase exercise; goal is 150 minutes cardio per week and 2 days strength training Lifelong avoidance of all NSAIDs and tobacco/nicotine products to reduce risk of anastomotic ulcer formation. Lab results will be reviewed when available. F/U with PCP re: hip pain Continue PNV or MVT, calcium and vitamin B12 for life Follow up labs at 1 year, obtain 1 week prior to scheduled appointment Follow up in 6 months for annual visit with Dr. Manzo Total time spent was 35 minutes: Preparing to see the patient (e.g., review of tests) Obtaining and/or reviewing separately obtained history Performing a medically appropriate examination and/or evaluation Counseling and educating the patient/family/caregiver Ordering medications, tests, or procedures Documenting clinical information in the electronic or other health record Independently interpreting results (not separately reported) and communicating results to the patient/family/caregiver Moriah Guthrie PA-C 01/01/25 1258 Per order of JOSEPHINE Kessler, patient received B12 injection IM. Patient tolerated injection well. Patient was advised to stay in clinic for 20 minutes and to report any adverse reactions immediately. documented in this encounter [facility] 01-01-2025 Instructions Moriah Guthrie PA-C - 01/01/2025 11:30 AM EDT 8 months s/p RYGB, down 119.29 lbs (52.55% EBWL) Continue high protein, high veggie diet Can start eating nuts, seeds, fruits with skins and raw vegetables Consume 4-5 small meals per day, eating something every 3-4 hours Continue water intake; goal is at least 64 oz of water per day Increase exercise; goal is 150 minutes cardio per week and 2 days strength training Lifelong avoidance of all NSAIDs and tobacco/nicotine products to reduce risk of anastomotic ulcer formation. Lab results will be reviewed when available. Follow up with PCP re: hip pain Continue PNV or MVT, calcium and vitamin B12 for life Follow up labs at 1 year, obtain 1 week prior to scheduled appointment Follow up in 6 months for annual visit with Dr. Manzo documented in this encounter [facility] 10-30-2024 History of Present illness Narrative 6 month labs entered. Patient has appointment 11/13/24 with May. documented in this encounter [facility] 10-10-2024 History of Present illness Narrative Images from the original note were not included. Shira Jett is a 29 y.o. female presents with chief complaint of URI HPI: HPI History of Present Illness C/o chill body ache and cognestion x 2 days SUBJECTIVE: MEDICATIONS: Current Outpatient Medications Medication Instructions albuterol HFA 90 mcg/act inhaler 2 puffs, Inhalation, Every 4 hours PRN azithromycin (Zithromax) 500 MG tablet busPIRone (BUSPAR) 15 mg, Oral, 2 times daily citalopram (CELEXA) 20 mg, Oral, Every morning cyanocobalamin (Vitamin B-12) 1000 MCG/ML injection D3-50 1.25 MG (25728 UT) capsule fluticasone (Flonase) 50 MCG/ACT nasal spray omeprazole (PriLOSEC) [address] capsule TAKE 1 CAPSULE BY MOUTH DAILY 30 MINUTES BEFORE MORNING MEAL predniSONE (Deltasone) 20 MG tablet sertraline (Zoloft) 100 MG tablet ALLERGIES: Allergies Allergen Reactions Sumatriptan Unknown and Anaphylaxis IMITREX FOR MIGRAINES SURGICAL HISTORY: Past Surgical History: Procedure Laterality Date CT ANGIOGRAM HEART CORONARY 07/30/2022 CT ANGIOGRAM TAVR 07/30/2022 CT ANGIOGRAM HEART CORONARY 11/23/2018 CT ANGIOGRAM TAVR 11/23/2018 PELVIC LAPAROSCOPY 11/03/2022 with removal of IUD US GUIDED FINE PERCUTANEOUS ASPIRATION 06/14/2020 US GUIDED FINE PERCUTANEOUS ASPIRATION 06/14/2020 FAMILY HISTORY: Family History Problem Relation Name Age of Onset Hypertension Mother Diabetes Father Hypertension Father Mental illness Father Cancer Maternal Grandmother Cancer Paternal Grandmother Diabetes Paternal Grandfather SOCIAL HISTORY: Social History Tobacco Use Smoking status: Never Smokeless tobacco: Never Substance Use Topics Alcohol use: Never Comment: Caffeine intake: 1-2 cups per day coffee Drug use: Never Depression: Not at risk (04/23/2024) Received from [facility] PHQ-2 Total Score: 0 REVIEW OF SYMPTOMS: Review of Systems OBJECTIVE: Visit Vitals BP 132/74 (BP Location: Left arm, Patient Position: Sitting, BP Cuff Size: Large adult) Pulse 91 Resp 18 Ht 5' 1 Wt 266 lb SpO2 97% BMI 50.26 kg/m Smoking Status Never BSA 2.28 m Physical Exam Constitutional: Appearance: Normal appearance. She is normal weight. HENT: Head: Normocephalic and atraumatic. Right Ear: Tympanic membrane and ear canal normal. Left Ear: Tympanic membrane and ear canal normal. Nose: Congestion and rhinorrhea present. Mouth/Throat: Mouth: Mucous membranes are moist. Pharynx: Oropharyngeal exudate present. Eyes: Pupils: Pupils are equal, round, and reactive to light. Cardiovascular: Rate and Rhythm: Normal rate and regular rhythm. Heart sounds: No murmur heard. Pulmonary: Effort: Pulmonary effort is normal. Breath sounds: Normal breath sounds. No wheezing or rhonchi. Musculoskeletal: General: No swelling. Cervical back: Normal range of motion and neck supple. Right lower leg: No edema. Left lower leg: No edema. Lymphadenopathy: Cervical: No cervical adenopathy. Skin: General: Skin is warm and dry. Findings: No rash. Neurological: Mental Status: She is oriented to person, place, and time. Sensory: No sensory deficit. Gait: Gait normal. Psychiatric: Mood and Affect: Mood normal. Thought Content: Thought content normal. Judgment: Judgment normal. ASSESSMENT AND PLAN: Assessment/Plan Problem List Items Addressed This Visit None Visit Diagnoses Influenza A - Primary Relevant Medications oseltamivir (Tamiflu) 75 MG capsule Fever, unspecified fever cause Relevant Orders STATUS COVID-19/FLU (Completed) documented in this encounter [facility] 08-25-2024 History of Present illness Narrative Images from the original note were not included. Shira Jett is a 29 y.o. female presents with chief complaint of Earache (Bilateral ear pain. Patient states that she has pressure and ringing in her ears. Patient states that the left is worse. Patient went to Urgent Care on 08/19 and got azithromycin and prednisone, but it has not helped.) HPI: HPI Tinnitis, no vetigo and pressure. Decreaed hearing SUBJECTIVE: MEDICATIONS: Current Outpatient Medications Medication Instructions albuterol HFA 90 mcg/act inhaler 2 puffs, Inhalation, Every 4 hours PRN azithromycin (Zithromax) 500 MG tablet busPIRone (BUSPAR) 15 mg, Oral, 2 times daily citalopram (CELEXA) 20 mg, Oral, Every morning cyanocobalamin (Vitamin B-12) 1000 MCG/ML injection D3-50 1.25 MG (22249 UT) capsule fluticasone (Flonase) 50 MCG/ACT nasal spray omeprazole (PriLOSEC) [address] capsule TAKE 1 CAPSULE BY MOUTH DAILY 30 MINUTES BEFORE MORNING MEAL predniSONE (Deltasone) 20 MG tablet sertraline (Zoloft) 100 MG tablet Take 1 tablet every day by oral route for 30 days. ALLERGIES: Allergies Allergen Reactions Sumatriptan Unknown and Anaphylaxis IMITREX FOR MIGRAINES SURGICAL HISTORY: Past Surgical History: Procedure Laterality Date CT ANGIOGRAM HEART CORONARY 07/30/2022 CT ANGIOGRAM TAVR 07/30/2022 CT ANGIOGRAM HEART CORONARY 11/23/2018 CT ANGIOGRAM TAVR 11/23/2018 PELVIC LAPAROSCOPY 11/03/2022 with removal of IUD US GUIDED FINE PERCUTANEOUS ASPIRATION 06/14/2020 US GUIDED FINE PERCUTANEOUS ASPIRATION 06/14/2020 FAMILY HISTORY: Family History Problem Relation Name Age of Onset Hypertension Mother Diabetes Father Hypertension Father Mental illness Father Cancer Maternal Grandmother Cancer Paternal Grandmother Diabetes Paternal Grandfather SOCIAL HISTORY: Social History Tobacco Use Smoking status: Never Smokeless tobacco: Never Substance Use Topics Alcohol use: Never Comment: Caffeine intake: 1-2 cups per day coffee Drug use: Never Depression: Not at risk (04/23/2024) Received from [facility] [employer] [facility] PHQ-2 Total Score: 0 REVIEW OF SYMPTOMS: Review of Systems OBJECTIVE: Visit Vitals BP 114/70 (BP Location: Left arm, Patient Position: Sitting, BP Cuff Size: Large adult) Pulse 86 Resp 18 Ht 5' 1 Wt 284 lb 12.8 oz SpO2 98% BMI 53.81 kg/m Smoking Status Never BSA 2.36 m Physical Exam Constitutional: Appearance: Normal appearance. She is normal weight. HENT: Head: Normocephalic and atraumatic. Right Ear: Tympanic membrane and ear canal normal. Left Ear: Ear canal normal. Ears: Comments: Left tm with significant effusion Nose: Congestion and rhinorrhea present. Mouth/Throat: Mouth: Mucous membranes are moist. Pharynx: Oropharyngeal exudate present. Eyes: Pupils: Pupils are equal, round, and reactive to light. Cardiovascular: Rate and Rhythm: Normal rate and regular rhythm. Heart sounds: No murmur heard. Pulmonary: Effort: Pulmonary effort is normal. Breath sounds: Normal breath sounds. No wheezing or rhonchi. Musculoskeletal: General: No swelling. Cervical back: Normal range of motion and neck supple. Right lower leg: No edema. Left lower leg: No edema. Lymphadenopathy: Cervical: No cervical adenopathy. Skin: General: Skin is warm and dry. Findings: No rash. Neurological: Mental Status: She is oriented to person, place, and time. Sensory: No sensory deficit. Gait: Gait normal. Psychiatric: Mood and Affect: Mood normal. Thought Content: Thought content normal. Judgment: Judgment normal. ASSESSMENT AND PLAN: Assessment/Plan Problem List Items Addressed This Visit Iron deficiency anemia Relevant Orders Vitamin B12 CBC and differential Iron + transferrin + TIBC Other Visit Diagnoses Non-recurrent acute serous otitis media of left ear - Primary Relevant Medications cefuroxime (Ceftin) 500 MG tablet Bariatric surgery status Relevant Orders Vitamin B12 Vitamin D 25 hydroxy CBC and differential Iron + transferrin + TIBC Vitamin D deficiency Relevant Orders Vitamin B12 Vitamin D 25 hydroxy CBC and differential Iron + transferrin + TIBC Assessment & Plan documented in this encounter [facility] 06-12-2024 History of Present illness Narrative Shira Jett is a 29 y.o. female presents with chief complaint of UTI HPI: HPI SUBJECTIVE: MEDICATIONS: Current Outpatient Medications Medication Instructions albuterol HFA 90 mcg/act inhaler 2 puffs, Inhalation, Every 4 hours PRN busPIRone (BUSPAR) 15 mg, Oral, 2 times daily citalopram (CELEXA) 20 mg, Oral, Every morning D3-50 1.25 MG (09286 UT) capsule fluticasone (Flonase) 50 MCG/ACT nasal spray lisinopril 20 mg, Oral, Daily omeprazole (PriLOSEC) [address] capsule TAKE 1 CAPSULE BY MOUTH DAILY 30 MINUTES BEFORE MORNING MEAL sertraline (Zoloft) 100 MG tablet Take 1 tablet every day by oral route for 30 days. ALLERGIES: Allergies Allergen Reactions Sumatriptan Unknown and Anaphylaxis IMITREX FOR MIGRAINES SURGICAL HISTORY: Past Surgical History: Procedure Laterality Date CT ANGIOGRAM HEART CORONARY 07/30/2022 CT ANGIOGRAM TAVR 07/30/2022 CT ANGIOGRAM HEART CORONARY 11/23/2018 CT ANGIOGRAM TAVR 11/23/2018 PELVIC LAPAROSCOPY 11/03/2022 with removal of IUD US GUIDED FINE PERCUTANEOUS ASPIRATION 06/14/2020 US GUIDED FINE PERCUTANEOUS ASPIRATION 06/14/2020 FAMILY HISTORY: Family History Problem Relation Name Age of Onset Hypertension Mother Diabetes Father Hypertension Father Mental illness Father Cancer Maternal Grandmother Cancer Paternal Grandmother Diabetes Paternal Grandfather SOCIAL HISTORY: Social History Tobacco Use Smoking status: Never Smokeless tobacco: Never Substance Use Topics Alcohol use: Never Comment: Caffeine intake: 1-2 cups per day coffee Drug use: Never Depression: Not at risk (04/23/2024) Received from [employer] PHQ-2 Total Score: 0 REVIEW OF SYMPTOMS: Review of Systems OBJECTIVE: Visit Vitals Smoking Status Never Visit Vitals Resp 18 Ht 5' 1 Wt 319 lb BMI 60.27 kg/m Smoking Status Never BSA 2.5 m Physical Exam Constitutional: Appearance: Normal appearance. She is normal weight. Musculoskeletal: Cervical back: Normal range of motion and neck supple. Skin: General: Skin is warm and dry. Neurological: General: No focal deficit present. Mental Status: She is alert and oriented to person, place, and time. Mental status is at baseline. Psychiatric: Mood and Affect: Mood normal. Behavior: Behavior normal. Thought Content: Thought content normal. Judgment: Judgment normal. ASSESSMENT AND PLAN: Assessment/Plan Problem List Items Addressed This Visit None Visit Diagnoses Acute cystitis with hematuria - Primary Relevant Medications cephalexin (Keflex) 500 MG capsule Dysuria Relevant Orders POCT Urinalysis dipstick (Completed) Urine culture (clean catch) Urinalysis with reflex microscopic (clean catch) Reviewed diet, importance of vitamin comlpiance documented in this encounter [facility] 06-04-2024 History of Present illness Narrative Per order of JOSEPHINE Kessler, patient received education on self administration of B12 injection (IM). Patient tolerated injection well and was able to provide teach back instructions. A prescription will be sent to her pharmacy for her to do her injections at home. Patient was advised to stay in clinic for 20 minutes and to report any adverse reactions immediately. documented in this encounter [facility] 06-04-2024 History of Present illness Narrative Bariatric Medical Nutrition Therapy Nutritional Education Post-Op Weight Loss Surgery Shira Jett is a 29 y.o. female who presents for medical nutritional therapy education for post-bariatric surgery patients. Type of Surgery: RYGB Ht 154.9 cm (5' 1 ) Wt (!) 146.3 kg (322 lb 9.6 oz) BMI 60.95 kg/m Weight Lost (lbs): 36.4 since Surgery Date: 04/23/24 % Decreased Excess Weight: 16.03 % Decreased BMI: 10.14 Tacking intake in WEALTH at work sly. Struggles meeting 80 grams of protein everyday but getting it some days. Nutrition Diagnosis: Obesity as evidenced by BMI. Body mass index is 60.95 kg/m . Nutrition Intervention: Comprehensive Nutrition Education 1) Stressed permanent lifestyle changes with diet, exercise, and behavioral modifications to be successful with weight loss after weight loss surgery. 2) Reviewed post-op gastric reduction diet guidelines. Stressed the importance of proper food choices that are low in sugar and fat. Reviewed appropriate portion sizes and food labeling. Provided information on behavior modification with eating like taking small bites, chewing well, recognizing fullness, stopping eating when full, and taking time with meals. 3) Discussed the importance of adequate protein in the diet and ways to obtain this through high protein foods or supplements. 4) Discussed ways to prevent signs and symptoms of dumping syndrome. 5) Stressed the importance of adequate hydration (64 ounces/day). 6) Discussed post-op gastric reduction diet vitamin/mineral regimen that begins 6 weeks post weight loss surgery. 1) 2 multivitamins with iron daily or 1 vitamin daily. 2) 2058-4958 mg calcium in divided doses (2x/day) for sleeve and gastric bypass, 0302-6239 mg in divided doses (3x/day) for SADS and distalization of bypass. Calcium Citrate can be taken with or without meals, however Calcium Carbonate should be consumed with meals. Take at least 2 hours before or after taking iron, since calcium will decrease iron absorption. 3) 350-1000 mcg oral vitamin B12 daily or 1000 mcg monthly injectable. 7) Encouraged bariatric support group meetings for additional support. Written information on all discussed has been provided within the [facility] Bariatric Guide. Start time: 1038 End time: 1108 [facility] 06-04[facility] - 06/04/2024 10:30 AM EDT Read the [facility] Bariatric Guide. If you re looking for general health and wellness resources, please visit [email or web address] History of Present illness Narrative Bariatric Medical Nutrition Therapy Nutritional Assessment/Education Post-Op Weight Loss Surgery Shira Jett is a 29 y.o. female who presents s/p Bonnie-en-Y Gastric Bypass. Ht 154.9 cm (5' 1 ) Comment: 5'1 Wt (!) 153.3 kg (338 lb) LMP 03/07/2024 (Exact Date) BMI 63.86 kg/m Weight Lost (lbs): 21.01 since Surgery Date: 04/23/24 % Decreased BMI: 5.85 % Decreased Excess Weight: 9.26 Shira is drinking > 60 ounces of water and Powerade Zero. She is tolerating full liquids and at least 1 protein shake per day. She vomited once on a scrambled egg. Nutrition Diagnosis: Obesity as evidenced by BMI. Body mass index is 63.86 kg/m . Nutrition Intervention: Review nutrition education 1) Reinforced Day 3 tab in bariatric binder - eating for healing with full liquids. 2) Reinforced Day 10 tab in bariatric binder - eating for healing with creamy foods. Start of bariatric vitamin/mineral supplementation regimen. (05/03/24) 3) Reinforced day 17 tab in bariatric binder - eating for healing with soft foods. (05/10/24) 4) Reinforced compliance with diet progression to decrease complications and promote healing. 5) Reviewed common nutritional complaints after weight loss surgery. 6) Encouraged bariatric support group meetings for additional support. Written information on all discussed has been provided within the [facility] Bariatric Guide. Nutrition Monitoring: To follow up approximately 6 weeks post-op weight loss surgery. Start time: 1243 End time: 1301 documented in this encounter [facility] 05-01-[address] - 05/01/2024 1:00 PM EDT Read the [facility] Bariatric Guide. If you re looking for general health and wellness resources, please visit [email or web address] documented in this encounter [facility] 05-01-2024 History of Present illness Narrative [facility] [address] [place], [place] [id number] SURGICAL WEIGHT LOSS PROGRAM PROGRESS NOTE POSTOP 1 Week Patient: Shira Jett Service Date: 05/01/2024 BP 127/83 (BP Site: Right Wrist, BP CUFF SIZE: L (13-17 inches)) Pulse 108 Ht 154.9 cm (5' 1 ) Wt (!) 153.3 kg (338 lb) LMP 03/07/2024 (Exact Date) BMI 63.86 kg/m Subjective: Patient is here today for postoperative visit. she is 1 week s/p RYGB Has one more week of lovenox Weight loss since surgery: 21 pounds Complaints today: none. She did have a few episodes of vomiting Medication/Comorbidity changes: none Fluid intake [x] Less than 48 oz [] 48-64 oz [] 64 + oz Protein intake: less than 60 g/day Review of Systems: Review of Systems - General ROS: negative Respiratory ROS: no cough, shortness of breath, or wheezing Cardiovascular ROS: no chest pain or dyspnea on exertion Gastrointestinal ROS: no abdominal pain, change in bowel habits, or black or bloody stools Physical Assessment: BP 127/83 (BP Site: Right Wrist, BP CUFF SIZE: L (13-17 inches)) Pulse 108 Ht 154.9 cm (5' 1 ) Wt (!) 153.3 kg (338 lb) LMP 03/07/2024 (Exact Date) BMI 63.86 kg/m General Awake, alert and oriented Cardio-Pulmonary [x] Heart RRR [x] No murmurs [] Pulses nl x4 extrem [x] Good inspiratory effort [x] No wheezing [x] Lungs clear to auscultation bilaterally [] Other: Abdominal [x] Abd S/NT/ND/Benign [x] No abdominal mass/hernia [x] No Splenomegaly [] Other: Muskuloskeletal [x] Good muscle strength x4 extremities [x] nl gait and ambul [x] Nl ROM x4 extremities [] Other: Neurologic [x] Alert and oriented x3 [] Other: Skin [x] Intact w/ no open wounds [x] Incisions C/D/I [] Steri strips removed [x] No drainage or Infection [] Other: Assessment & Plan: S/P RYGB Plan RD visit today to discuss diet progression Will schedule for 6 week nutrition class Instructed on further follow up for the first year- 3, 6, 12 months [x] Daily protein (65-75gm/day) [x] Take Vitamins [x] Attend Support Group [x] Exercise Regularly documented in this encounter [facility] 04-27-2024 Miscellaneous Notes Contract: OC 105 Patient calling in stating she just had surgery on the Apr 23 and she is having bloody mucous when she coughs. Connected Dr. Manzo with Shira [facility] [employer] 04-27-2024 Telephone encounter Note Contract: OC 105 Patient calling in stating she just had surgery on the Apr 23 and she is having bloody mucous when she coughs. Connected Dr. Manzo with Shira [facility] 04-24-2024 Hospital course Narrative Images from the original note were not included. Admission date: 04/23/24 Discharge date: 04/24/24 Admission diagnoses: Morbid obesity, LUCIANO, HTN, GERD, h/o PE Discharge diagnoses: Same Procedures: Robotic Bonnie-en-Y Gastric Bypass Brief history: Shira Jett wished to proceed with weight loss surgery after discussing the risks and benefits with Dr. Manzo, undergoing multiple visits with our dietitians and a psychological evaluation. Hospital course: Shira Jett underwent the above-mentioned procedure on the day of admission and tolerated it well. On the morning of POD #1 the patient was doing well. We discussed discharge goals for later today. Patient was in agreement with that plan. Condition discharge: Good Disposition: To home Discharge instructions: Outlined with the patient and placed in the orders. Follow up with us next week in the office. Discharge medications: Your medication list START taking these medications Instructions Last Dose Given Next Dose Due cyclobenzaprine 10 mg tablet Commonly known as: FLEXERIL Take 1 tablet (10 mg total) by mouth 3 (three) times a day as needed for muscle spasms. enoxaparin 40 mg/0.4 mL syringe Commonly known as: LOVENOX Inject 0.4 mL (40 mg total) under the skin Every 12 (twelve) hours for 14 days. ondansetron ODT 4 mg disintegrating tablet Commonly known as: ZOFRAN ODT Dissolve 1 tablet (4 mg total) on tongue every 6 (six) hours as needed for nausea or vomiting. oxyCODONE-acetaminophen 5-325 mg per tablet Commonly known as: PERCOCET Take 1 tablet by mouth every 6 (six) hours as needed for pain for up to 7 days. Max Daily Amount: 4 tablets CHANGE how you take these medications Instructions Last Dose Given Next Dose Due docusate sodium 100 mg capsule Commonly known as: COLACE What changed: Another medication with the same name was removed. Continue taking this medication, and follow the directions you see here. Take 1 capsule (100 mg total) by mouth in the morning and 1 capsule (100 mg total) before bedtime. Start one week prior to surgery and continue two weeks after surgery.. omeprazole 40 mg capsule Commonly known as: PriLOSEC What changed: medication strength how much to take when to take this Take 1 capsule (40 mg total) by mouth every morning before breakfast. CONTINUE taking these medications Instructions Last Dose Given Next Dose Due albuterol 90 mcg/actuation inhaler Commonly known as: PROVENTIL HFA;VENTOLIN HFA Inhale 2 puffs every 4 (four) hours as needed for wheezing. BUSPIRONE ORAL cholecalciferol (vitamin D3) 50,000 units tablet Take 1 tablet (50,000 Units total) by mouth once a week. citalopram 20 mg tablet Commonly known as: CeleXA lisinopriL 20 mg tablet Commonly known as: PRINIVIL,ZESTRIL Where to Get Your Medications These medications were sent to [facility] [id number] [place] [id number] [place] [address] cyclobenzaprine 10 mg tablet enoxaparin 40 mg/0.4 mL syringe omeprazole 40 mg capsule ondansetron ODT 4 mg disintegrating tablet oxyCODONE-acetaminophen 5-325 mg per tablet Moriah Guthrie PA-C 04/24/24 1048 Moriah Guthrie PA-C 04/24/24 1050 documented in this encounter [facility] [employer] 04-24-2024 Progress note Formatting of t his note might be different from the original. DISCHARGE PLANNING NOTE Case discussed in daily transition rounds and chart reviewed by CN. Barriers to discharge include diet tolerance Discharge Plan remains: Home self care with family support. Family to transport home. Patient denies any needs for discharge at this time. CN will continue to follow and is available should any further needs arise. - Shira Bledsoe RN 04/24/24 10:44 AM [facility] [employer] 04-24-2024 Miscellaneous Notes DISCHARGE PLANNING NOTE Case discussed in daily transition rounds and chart reviewed by CN. Barriers to discharge include diet tolerance Discharge Plan remains: Home self care with family support. Family to transport home. Patient denies any needs for discharge at this time. CN will continue to follow and is available should any further needs arise. - Shira Bledsoe RN 04/24/24 10:44 AM Problem: Pain Goal: Patient goal is pain score less than 4, able to rest, and participant in treatment plan as appropriate Description: INTERVENTIONS: 1. Encourage patient or legal service center representative to report early pain and ask for pain medicine when needed 2. Assess pain using appropriate pain scale and include the scale used when documenting 3. Administer analgesics based on type and severity of pain and evaluate response within appropriate time frame 4. Implement non-pharmacological measures as appropriate and evaluate response 5. Consider cultural and social influences on pain and pain management 6. Notify LIP if interventions ineffective or patient reports new pain 7. Monitor vital signs including pulse ox, end-tidal CO2 based on pain intervention 8. Reassess pain per policy 9. Teach patient or legal service center representative interventions for comforting Outcome: Progressing Note: Evaluation of progress towards goal: medicated prn. Meds help, cont to monitor Problem: Safety Goal: Patient will be injury free during hospitalization Description: INTERVENTIONS: 1. Assess patient's risk for falls and implement fall prevention plan of care per policy 2. Provide and maintain a safe environment 3. Proper use of double Identifiers 4. Medication administration using the 5 rights 5. Hand hygiene 6. Specimens are labeled at the bedside 7. Instruct patient/ patient service center representative about use of safety devices 8. Include patient/ patient service center representative in decisions related to safety Outcome: Progressing Note: Evaluation of progress towards goal: safety maintained, hourly rounding, uses call light Problem: Infection Goal: Absence of infection during hospitalization Description: Interventions: 1. Assess and monitor for signs and symptoms of infection 2. Monitor lab/diagnostic results 3. Monitor all insertion sites i.e., indwelling lines, tubes and drains 4. Monitor endotracheal (as able) and nasal secretions for changes in amount and color 5. Administer medications as ordered 6. Instruct and encourage patient and family to use good hand hygiene technique 7. Identify and instruct patient/patient service center representative in use of appropriate isolation precautions for identified infection/symptoms 8. Provide and discuss with patient/patient service center representative on educational MDRO sheet 9. Encourage and monitor nutritional status daily and consult graphic art designer if indicated 10. Implement neutropenic guidelines as needed 11. Review exposure to history of communicable disease and recent travel history on admission 12. Encourage annual influenza vaccine 13. Encourage pneumonia vaccine Outcome: Progressing Note: Evaluation of progress towards goal: afebrile, cont to monitor Problem: Knowledge Deficit Goal: Patient/patient service center representative demonstrates understanding of disease process, treatment plan, medications, and discharge instructions Description: INTERVENTIONS 1. Complete learning assessment and assess knowledge base 2. Provide teaching at level of understanding 3. Provide teaching via preferred learning method(s) Outcome: Progressing Note: Evaluation of progress towards goal: voiced understanding poc freely Problem: Discharge Planning Goal: Discharge to post-acute care, other facility, or home with appropriate resources Description: Patient's goal is: INTERVENTIONS 1. Conduct assessment to determine patient/family and health care team treatment goals, and need for post-acute services based on payer coverage, community resources, and patient preferences, and barriers to discharge 2. Coordinate with Social work, Care Navigation, and Utilization Review to arrange appropriate level of services according to patient's needs based on patient preference and payer coverage in collaboration with the physician and health care team 3. Address psychosocial, clinical, and financial barriers to discharge as identified in assessment in conjunction with the patient/family and health care team 4. Consult appropriate ancillary services (i.e.. PT/OT/ST, etc) as needed 5. Communicate with and update the patient/family, physician, and health care team regarding progress on the discharge plan 6. Identify discharge learning needs (meds, wound care, etc). 7. Arrange for needed discharge transportation as appropriate Outcome: Progressing Note: Evaluation of progress towards goal: dc planning to home later today Additional Comments: Problem: Inadequate Airway Clearance Goal: Patient will maintain patent airway Description: INTERVENTIONS 1. Assess and monitor breath sounds, cough and sputum (if present) 2. Monitor respiratory rate and oxygen saturation 3. Collaborate with respiratory therapy to administer medication, oxygen, and suitable airway clearance techniques as ordered 4. Position patient for maximum ventilatory efficiency; elevate head of bed at least 30 degrees if appropriate 5. Provide adequate fluid intake to liquify secretions if appropriate 6. Suction secretions as indicated to maintain patent airway 7. Instruct patient to turn, cough, and deep breathe; encourage incentive spirometer if indicated Outcome: Progressing Note: Evaluation of progress towards goal: Pt vitals, labs, respiratory rate, and breath sounds monitored, pt able to turn self Problem: Anxiety Goal: Anxiety is at manageable level Description: Patient's goal is: INTERVENTIONS 1. Assess and monitor patient's anxiety level 2. Monitor for signs and symptoms of anxiety both physical and emotional (heart palpitations, chest pain, shortness of breath, headaches, nausea, feeling jumpy, restlessness, irritable, apprehensive) 3. Reorient/orient patient to unit/surroundings 4. Explain treatment plan 5. Explain tests/procedures prior to initiation 6. Encourage participation in care 7. Encourage verbalization of concerns/fears 8. Assess coping mechanisms 9. Assist in developing anxiety-reducing skills 10. Administer complimentary therapies 11. Manage patient's environment 12. Limit or eliminate stimulants such as caffeine and nicotine 13. Collaborate with ancillary departments 14. Include patient/patient service center representative in decisions related to anxiety Outcome: Progressing Note: Evaluation of progress towards goal: pt anxiety at tolerable level, vitals and behaviors monitored Problem: Inadequate Coping Goal: Demonstrates and verbalizes ability to cope effectively Description: Patient's goal is: INTERVENTIONS 1. Patient is able to verbalize feelings related to emotional state 2. Encourage verbalization of feelings, perceptions, fears, stressors, loss of loved ones 3. Encourage verbalization of problems out of their control 4. Encourage participation in care and self management 5. Inform patient of all treatment/care prior to providing care 6. Collaborate with pastoral/spiritual care, social work professor, mental health counselor as needed. 7. Instruct patient on diversional activities such as physical activity, distraction, and deep breathing exercises to assist with coping 8. Involve patient's service center representative in care Outcome: Progressing Note: Evaluation of progress towards goal: Patient is cooperative, social and attends unit programming. 1:1 interaction, support and encouragement provided. Patient discusses issues openly with staff and identifies stressors, develops goals and coping skills Problem: Pain Goal: Patient goal is pain score less than 4, able to rest, and participant in treatment plan as appropriate Description: INTERVENTIONS: 1. Encourage patient or legal service center representative to report early pain and ask for pain medicine when needed 2. Assess pain using appropriate pain scale and include the scale used when documenting 3. Administer analgesics based on type and severity of pain and evaluate response within appropriate time frame 4. Implement non-pharmacological measures as appropriate and evaluate response 5. Consider cultural and social influences on pain and pain management 6. Notify LIP if interventions ineffective or patient reports new pain 7. Monitor vital signs including pulse ox, end-tidal CO2 based on pain intervention 8. Reassess pain per policy 9. Teach patient or legal service center representative interventions for comforting Outcome: Progressing Note: Evaluation of progress towards goal: Patient's pain is assessed and documented with appropriate pain scale. Patient's pain is relieved with PRN medications. Problem: Safety Goal: Patient will be injury free during hospitalization Description: INTERVENTIONS: 1. Assess patient's risk for falls and implement fall prevention plan of care per policy 2. Provide and maintain a safe environment 3. Proper use of double Identifiers 4. Medication administration using the 5 rights 5. Hand hygiene 6. Specimens are labeled at the bedside 7. Instruct patient/ patient service center representative about use of safety devices 8. Include patient/ patient service center representative in decisions related to safety Outcome: Progressing Note: Evaluation of progress towards goal: Pt remains free from falls and injury, medicated using 5 rights, hand hygiene in and out of room, specimens labeled at bedside Problem: Infection Goal: Absence of infection during hospitalization Description: Interventions: 1. Assess and monitor for signs and symptoms of infection 2. Monitor lab/diagnostic results 3. Monitor all insertion sites i.e., indwelling lines, tubes and drains 4. Monitor endotracheal (as able) and nasal secretions for changes in amount and color 5. Administer medications as ordered 6. Instruct and encourage patient and family to use good hand hygiene technique 7. Identify and instruct patient/patient service center representative in use of appropriate isolation precautions for identified infection/symptoms 8. Provide and discuss with patient/patient service center representative on educational MDRO sheet 9. Encourage and monitor nutritional status daily and consult graphic art designer if indicated 10. Implement neutropenic guidelines as needed 11. Review exposure to history of communicable disease and recent travel history on admission 12. Encourage annual influenza vaccine 13. Encourage pneumonia vaccine Outcome: Progressing Note: Evaluation of progress towards goal: Pt vitals and labs monitored, proper standard precautions for infection prevention, all insertion/surgical sites monitored for infection Problem: Knowledge Deficit Goal: Patient/patient service center representative demonstrates understanding of disease process, treatment plan, medications, and discharge instructions Description: INTERVENTIONS 1. Complete learning assessment and assess knowledge base 2. Provide teaching at level of understanding 3. Provide teaching via preferred learning method(s) Outcome: Progressing Note: Evaluation of progress towards goal: Pt demonstrates understanding of disease process, treatment plan and medications Problem: Discharge Planning Goal: Discharge to post-acute care, other facility, or home with appropriate resources Description: Patient's goal is: INTERVENTIONS 1. Conduct assessment to determine patient/family and health care team treatment goals, and need for post-acute services based on payer coverage, community resources, and patient preferences, and barriers to discharge 2. Coordinate with Social work, Care Navigation, and Utilization Review to arrange appropriate level of services according to patient's needs based on patient preference and payer coverage in collaboration with the physician and health care team 3. Address psychosocial, clinical, and financial barriers to discharge as identified in assessment in conjunction with the patient/family and health care team 4. Consult appropriate ancillary services (i.e.. PT/OT/ST, etc) as needed 5. Communicate with and update the patient/family, physician, and health care team regarding progress on the discharge plan 6. Identify discharge learning needs (meds, wound care, etc). 7. Arrange for needed discharge transportation as appropriate Outcome: Progressing Note: Evaluation of progress towards goal: Awaiting discharge instructions Problem: Low Risk Fall Score Description: Spring Fall Score of 0 - 24 or indicated by [facility] Assessment Goal: Patient should be free from fall Description: Interventions: 1. [place] to environment 2. Hourly rounds addressing the 4 P's (Pain, Positioning, Possessions, Potty) 3. Clear area of hazards (spills, clutter, electrical cords, unnecessary equipment) 4. Place equipment (bed & TV controls, call light, phone, urinal) within reach 5. Encourage patient to wear glasses and hearing aides as appropriate 6. Maintain bed in lowest position 7. Lock wheels on bed/wheelchair 8. Provide adequate lighting, including night light 9. Assess need for additional bedding, food/fluids, pain med's prior to sleep/routinely 10. Provide gripper slippers or personal non-skid footwear 11. Teach patient and patient service center representative to maintain environment for safety and engage in all aspects of fall prevention program Outcome: Progressing Note: Evaluation of progress towards goal: Patient remains free from falls and injuries. Patient's 5 P's addressed. Patient bed is in a locked position. Patient has call light for assistance. Problem: Pain Goal: Patient goal is pain score less than 4, able to rest, and participant in treatment plan as appropriate Description: INTERVENTIONS: 1. Encourage patient or legal service center representative to report early pain and ask for pain medicine when needed 2. Assess pain using appropriate pain scale and include the scale used when documenting 3. Administer analgesics based on type and severity of pain and evaluate response within appropriate time frame 4. Implement non-pharmacological measures as appropriate and evaluate response 5. Consider cultural and social influences on pain and pain management 6. Notify LIP if interventions ineffective or patient reports new pain 7. Monitor vital signs including pulse ox, end-tidal CO2 based on pain intervention 8. Reassess pain per policy 9. Teach patient or legal service center representative interventions for comforting Outcome: Progressing Note: Evaluation of progress towards goal: patient states abdominal pain. Rn medicates per prn scale Problem: Safety Goal: Patient will be injury free during hospitalization Description: INTERVENTIONS: 1. Assess patient's risk for falls and implement fall prevention plan of care per policy 2. Provide and maintain a safe environment 3. Proper use of double Identifiers 4. Medication administration using the 5 rights 5. Hand hygiene 6. Specimens are labeled at the bedside 7. Instruct patient/ patient service center representative about use of safety devices 8. Include patient/ patient service center representative in decisions related to safety Outcome: Progressing Note: Evaluation of progress towards goal: patient is independent and stead on feet Problem: Knowledge Deficit Goal: Patient/patient service center representative demonstrates understanding of disease process, treatment plan, medications, and discharge instructions Description: INTERVENTIONS 1. Complete learning assessment and assess knowledge base 2. Provide teaching at level of understanding 3. Provide teaching via preferred learning method(s) Note: Evaluation of progress towards goal: patient educated on importance of ambulating in the hallways Bonnie-en-Y Gastric Bypass Operative Note Patient: Shira Jett : 1995 Date: 04/23/24 Preoperative diagnosis: Class 3 obesity with a BMI of 66.9 Postoperative diagnosis: same Procedure: Robotic Bonnie-en-Y Gastric Bypass Surgeon: Tonia Manzo MD Inspector Crystal: Hanna Jaquez MD-Fellow Anesthesia: General Endotracheal Intra-operative TAP Block Estimated Blood loss: 10 ml Fluids: 2L crystalloid Indications: The patient is a 29 y.o. female who presented with morbid obesity with associated comorbidities. The risks and benefits of weight loss surgery has been thoroughly discussed and reviewed and consent was obtained. The pre-op requirements for bariatric surgery have been met. Procedure: The patient was brought to the operating room and placed supine on the operating room table. After anesthesia was administered the abdomen was prepped and draped in the usual sterile fashion. I entered the abdomen approximately 12-14 cm distal to the xyophoid process and to the right of the midline. To do this a skin incision was made. A 0 degree laparoscope was then introduced using an optical access trocar. Pneumoperitoneum was then established through this trocar. Once pneumoperitoneum was created all ports were placed in a standard fashion for a robotic Bonnie-en-Y gastric bypass and a Eze liver retractor was also introduced in a subxyphoid location and the liver was elevated. Prior to proceeding with the operation, an intraoperative TAP block was performed. Under visualization with the laparoscope, a needle was inserted percutaneously and, confirming that I was in the right plane, 30 mL of Marcaine were injected on both sides for a total of 60 ml. Good separation of the muscle planes was seen bilaterally indicating good placement of the anesthetic solution. Prior to docking the robot, the ligament of Trietz was clearly identified and a distance of approximately 100 cm was measured and at this level, the mesentery was marked to delineate the proximal and distal bowel. One hemoclip was used to sonu the BP end and two clips were placed distally to sonu the Bonnie limb. The patient was then placed in the reverse trendelenburg position and the robotic patient cart was brought in the from the patient s side and docked and the remaining parts of the procedure were performed from the console. I first inspected the esophageal hiatus and there was no evidence of a significant hiatal hernia. The angle of His was mobilized bluntly. I then measured a distance of 5 cm distal to the GE junction and at this level, the lesser curve fat and vasculature were divided using the vessel sealer device, making sure to avoid the left gastric artery. Having gained clear access to the lesser sac, a 60 blue load robotic stapler was used to start the creation of the pouch distally. Once this fire was done then a 32 Qatari VisiGi 3D orogastric tube was guided along the lesser curve into the pouch and then the pouch was completed using a total of 3 white loads of the robotic stapler with the tube in place. Once the pouch was created then the omentum was reflected in the epigastrium and using the vessel sealer device I did divide the omentum starting at the transverse colon and working proximally to create a passage for the antecolic Bonnie limb. Next, the transverse mesocolon was elevated and the previously placed clips were easily identified marking proximal and distal. The bowel was then brought up to the pouch in an [place] loop technique and reached the pouch without any tension. Enterotomies were then made using the hot scissors in both pouch and the small bowel. A linear stapled gastrojejunostomy was then performed using a blue load robotic stapler to a distance of approximately 28 mm. The stoma was then closed in two layers using a 0 Stratafix suture in a running fashion. Prior to completing the stoma, the 32 Qatari tube was advanced from the pouch into the Bonnie limb. The sutures were secured using a hemlock. Once the gastrojejunostomy was completed, then the small bowel was divided just lateral to the gastrojejunostomy using a 60 white load of the robotic stapler. I then measured a distance of 120 cm for the Bonnie limb and the jejunojejunostomy was completed in the left upper quadrant. To do this, enterotomies were made using hot scissors in both the BP limb as well as the Bonnie limb and then a jdik-ky-hdgl stapled jejunojejunostomy was completed using a 60 white load robotic stapler. The jejunal defect was then closed using a running 2-0 V lock suture and then the mesenteric defect was closed with a running 2-0 Ethibond suture. Once this was all completed, an intraoperative leak test was performed using IcG and saline solution through the OG tube. The Bonnie limb was occluded. The pouch was then filled with the solution through the OG tube. The anastomosis and pouch staple line was inspected using the firefly function and there was no evidence of a leak. The pouch was suctioned out and the OG was withdrawn. Once this was completed then both anastomoses were checked one more time. There was no evidence of any bleeding or ischemia so the Eze liver retractor was removed under vision. All remaining robotic instruments were removed under vision, as were the ports and then the camera port was removed last. Once all ports were out all skin incisions were injected with local anesthetic solution, closed with 4-0 Monocryl suture and then skin glue material was applied. The patient tolerated the procedure well and was transferred to the recovery room in satisfactory condition. TONIA MANZO MD 04/23/24 documented in this encounter [facility] 04-24-2024 Plan of care note Problem: Pain Goal: Patient goal is pain score less than 4, able to rest, and participant in treatment plan as appropriate Description: INTERVENTIONS: 1. Encourage patient or legal service center representative to report early pain and ask for pain medicine when needed 2. Assess pain using appropriate pain scale and include the scale used when documenting 3. Administer analgesics based on type and severity of pain and evaluate response within appropriate time frame 4. Implement non-pharmacological measures as appropriate and evaluate response 5. Consider cultural and social influences on pain and pain management 6. Notify LIP if interventions ineffective or patient reports new pain 7. Monitor vital signs including pulse ox, end-tidal CO2 based on pain intervention 8. Reassess pain per policy 9. Teach patient or legal service center representative interventions for comforting Outcome: Progressing Note: Evaluation of progress towards goal: medicated prn. Meds help, cont to monitor Problem: Safety Goal: Patient will be injury free during hospitalization Description: INTERVENTIONS: 1. Assess patient's risk for falls and implement fall prevention plan of care per policy 2. Provide and maintain a safe environment 3. Proper use of double Identifiers 4. Medication administration using the 5 rights 5. Hand hygiene 6. Specimens are labeled at the bedside 7. Instruct patient/ patient service center representative about use of safety devices 8. Include patient/ patient service center representative in decisions related to safety Outcome: Progressing Note: Evaluation of progress towards goal: safety maintained, hourly rounding, uses call light Problem: Infection Goal: Absence of infection during hospitalization Description: Interventions: 1. Assess and monitor for signs and symptoms of infection 2. Monitor lab/diagnostic results 3. Monitor all insertion sites i.e., indwelling lines, tubes and drains 4. Monitor endotracheal (as able) and nasal secretions for changes in amount and color 5. Administer medications as ordered 6. Instruct and encourage patient and family to use good hand hygiene technique 7. Identify and instruct patient/patient service center representative in use of appropriate isolation precautions for identified infection/symptoms 8. Provide and discuss with patient/patient service center representative on educational MDRO sheet 9. Encourage and monitor nutritional status daily and consult graphic art designer if indicated 10. Implement neutropenic guidelines as needed 11. Review exposure to history of communicable disease and recent travel history on admission 12. Encourage annual influenza vaccine 13. Encourage pneumonia vaccine Outcome: Progressing Note: Evaluation of progress towards goal: afebrile, cont to monitor Problem: Knowledge Deficit Goal: Patient/patient service center representative demonstrates understanding of disease process, treatment plan, medications, and discharge instructions Description: INTERVENTIONS 1. Complete learning assessment and assess knowledge base 2. Provide teaching at level of understanding 3. Provide teaching via preferred learning method(s) Outcome: Progressing Note: Evaluation of progress towards goal: voiced understanding poc freely Problem: Discharge Planning Goal: Discharge to post-acute care, other facility, or home with appropriate resources Description: Patient's goal is: INTERVENTIONS 1. Conduct assessment to determine patient/family and health care team treatment goals, and need for post-acute services based on payer coverage, community resources, and patient preferences, and barriers to discharge 2. Coordinate with Social work, Care Navigation, and Utilization Review to arrange appropriate level of services according to patient's needs based on patient preference and payer coverage in collaboration with the physician and health care team 3. Address psychosocial, clinical, and financial barriers to discharge as identified in assessment in conjunction with the patient/family and health care team 4. Consult appropriate ancillary services (i.e.. PT/OT/ST, etc) as needed 5. Communicate with and update the patient/family, physician, and health care team regarding progress on the discharge plan 6. Identify discharge learning needs (meds, wound care, etc). 7. Arrange for needed discharge transportation as appropriate Outcome: Progressing Note: Evaluation of progress towards goal: dc planning to home later today Additional Comments: [facility] 04-24-2024 History of Present illness Narrative MBS Coordinator Rounding Note POD #1 Reinforced Postoperative Bariatric Goals with patient. Dietary Goals: 1. Reviewed examples of sugar-free clear liquids and protein shakes allowed on post-op day # 1 and # 2. 2. Reviewed fluid goal of 64 ounces to prevent dehydration. 3. Stressed measuring portion sizes utilizing medicine cups or 20-ounce sipping cup provided. 4. Educated on sugar-free, non-carbonated, non-alcoholic, caffeine free beverages. 5. Educated on no straws. 6. Reviewed diet advancement for the first two weeks as outlined in the Bariatric Patient Guide. 7. Reporting nausea to nurse immediately and available antiemetics. Tolerating water and and 1/2 of protein shake thus far. DVT Prophylaxis Goals: 1. Importance of ambulation in hallway every hour and sitting in recliner. 2. Wearing sequential compression device while in bed or chair for prolonged period. 3. Placing shoe magnet on doorframe to record how many times walked. 4. Pharmacological prophylaxis - Lovenox injection rationale. 5. Signs and symptoms to report while at home that may indicate DVT Complication. 6. Continuing ambulation after discharged. Pulmonary Goals: 1. Reinforce and demonstrate as needed proper technique in utilizing incentive spirometer. 10 times / hour while awake. Continuing for two weeks after discharge. 2. Deep breathing and coughing exercises. 3. Signs and symptoms to report while at home that may indicate PE complication. Needed instructions on correct technique of using IS. Able to raise IS to 1000. Generated a congestive cough. Unable to expectorate mucous. Does have a history of allergies. States she will be starting singular. Reviewed signs and symptoms that may indicate C-Pap/BIPAP machine pressures need adjusted. Pain Management Goals: 1. Encouraging oral pills to keep pain under control. 2. Encouraging discussion with nurse on a pain control plan. 3. Constipation issues that may occur requiring Milk of Magnesia or Miralax upon discharge. (Beginning within 48-hours after starting the Colace regimen with no bowel movement and continuing PRN). 4. Alerting surgeon of poor pain control after taking pain medication. States pain is well controlled with current pain regimen. Relays that the abdominal binder has really helped with her abdominal pain. Urinary Goals: 1. Possible green blue urine from Methylene blue dye (Drs. Rudolph and Lesa patient's only). 2. Utilizing measuring hat/urinal to make sure urinary output is good before discharge. 3. Reporting difficulty with urination. 4. Reviewed measures outlined in bariatric guide to prevent a UTI. States it was hard to start a urinary stream today but was able to void. Relates to dehydration, as she did not drink very much yesterday due to being groggy from anesthesia. Passing flatus. Denies having a bowel movement. Incision Line Goals: 1. Reviewed incision line care outlined in the Bariatric Patient Guide. 2. Reviewed signs and symptoms of possible infection that would need reported. 3. Showering Instructions. 4. Reviewed measures outlined in bariatric guide to prevent a SSI. Discharge Planning Goals: 1. Stressed importance of follow-up care for life. 2. Educated on having access to the bariatric surgeon bottom ironer 02/04, by calling the office phone number. Will monitor her B/P when goes home. Instructed to bring B/P log to her one-week follow-up appointment. All education provided outlined within the [facility] Bariatric Guide. Patient verbalized an understanding of all education reinforced. Personalized letter mailed to patient, providing report writer's contact information. Melanie Zee RN, CBN Metabolic & Bariatric Surgery Coordinator [facility] Shira Jett is doing very well. Tolerating liquids and protein shake. Mild nausea with drinking, no emesis, + flatus, no BM yet. Incisional pain controlled with Percocet. Voiding without difficulty. Ambulating in the halls. Discussed potential discharge later today if she continues to do well and tolerate protein drink. Patient agrees with the plan. Physical examination: Vitals: 04/24/24 0055 04/24/24 0329 04/24/24 0835 04/24/24 0854 BP: 151/66 143/69 133/71 Pulse: (!) 46 54 52 Resp: 19 20 20 Temp: 36.9 C (98.5 F) 36.8 C (98.2 F) 36.8 C (98.2 F) TempSrc: Oral Oral Oral SpO2: 96% 97% 98% Weight: Height: 154.9 cm (5' 1 ) Gen: WNWD, alert, NAD, answers questions appropriately. Sitting in bed. Lungs: normal effort. Heart: Regular rate Abd: Soft, obese, nondistended, appropriate incisional tenderness to palpation. Abdominal incisions C/D/I with skin glue. Abdominal binder in place. Ext: No calf tenderness or LE edema. EPCs are currently off, patient states she has been wearing them. Labs: Recent Results (from the past 18 hour(s)) Hemoglobin and hematocrit, blood Collection Time: 04/24/24 6:56 AM Result Value Ref Range Hemoglobin 11.4 (L) 11.7 - 15.5 g/dL Hematocrit 35.0 35 - 47 % Creatinine includes GFR, serum Collection Time: 04/24/24 6:56 AM Result Value Ref Range Creatinine 0.69 0.40 - 1.00 mg/dL eGFR (CKD-EPI)non-race dependent >90 >59 ml/min/1.73sq.m Platelet count Collection Time: 04/24/24 6:56 AM Result Value Ref Range Platelets 323 150 - 450 X10E9/L MPV 7.8 7 - 12 fL Assessment: 1. POD #1 s/p robotic Bonnie-en-Y gastric bypass - stable Plan: 1. Anticipate discharge to home later today if patient continues to tolerate protein drink. 2. Encouraged continued ambulation and use of incentive spirometer. 3. Continue outpatient postop DVT prophylaxis, Lovenox 40mg SQ Q12H x14 days, d/t h/o PE 3. Discharge instructions and medications reviewed with patient. 4. Discussed with Dr. Anais Guthrie PA-C 04/24/24 1041 documented in this encounter [facility] 04-23-2024 Plan of care note Problem: Inadequate Airway Clearance Goal: Patient will maintain patent airway Description: INTERVENTIONS 1. Assess and monitor breath sounds, cough and sputum (if present) 2. Monitor respiratory rate and oxygen saturation 3. Collaborate with respiratory therapy to administer medication, oxygen, and suitable airway clearance techniques as ordered 4. Position patient for maximum ventilatory efficiency; elevate head of bed at least 30 degrees if appropriate 5. Provide adequate fluid intake to liquify secretions if appropriate 6. Suction secretions as indicated to maintain patent airway 7. Instruct patient to turn, cough, and deep breathe; encourage incentive spirometer if indicated Outcome: Progressing Note: Evaluation of progress towards goal: Pt vitals, labs, respiratory rate, and breath sounds monitored, pt able to turn self Problem: Anxiety Goal: Anxiety is at manageable level Description: Patient's goal is: INTERVENTIONS 1. Assess and monitor patient's anxiety level 2. Monitor for signs and symptoms of anxiety both physical and emotional (heart palpitations, chest pain, shortness of breath, headaches, nausea, feeling jumpy, restlessness, irritable, apprehensive) 3. Reorient/orient patient to unit/surroundings 4. Explain treatment plan 5. Explain tests/procedures prior to initiation 6. Encourage participation in care 7. Encourage verbalization of concerns/fears 8. Assess coping mechanisms 9. Assist in developing anxiety-reducing skills 10. Administer complimentary therapies 11. Manage patient's environment 12. Limit or eliminate stimulants such as caffeine and nicotine 13. Collaborate with ancillary departments 14. Include patient/patient service center representative in decisions related to anxiety Outcome: Progressing Note: Evaluation of progress towards goal: pt anxiety at tolerable level, vitals and behaviors monitored Problem: Inadequate Coping Goal: Demonstrates and verbalizes ability to cope effectively Description: Patient's goal is: INTERVENTIONS 1. Patient is able to verbalize feelings related to emotional state 2. Encourage verbalization of feelings, perceptions, fears, stressors, loss of loved ones 3. Encourage verbalization of problems out of their control 4. Encourage participation in care and self management 5. Inform patient of all treatment/care prior to providing care 6. Collaborate with pastoral/spiritual care, social work professor, mental health counselor as needed. 7. Instruct patient on diversional activities such as physical activity, distraction, and deep breathing exercises to assist with coping 8. Involve patient's service center representative in care Outcome: Progressing Note: Evaluation of progress towards goal: Patient is cooperative, social and attends unit programming. 1:1 interaction, support and encouragement provided. Patient discusses issues openly with staff and identifies stressors, develops goals and coping skills Problem: Pain Goal: Patient goal is pain score less than 4, able to rest, and participant in treatment plan as appropriate Description: INTERVENTIONS: 1. Encourage patient or legal service center representative to report early pain and ask for pain medicine when needed 2. Assess pain using appropriate pain scale and include the scale used when documenting 3. Administer analgesics based on type and severity of pain and evaluate response within appropriate time frame 4. Implement non-pharmacological measures as appropriate and evaluate response 5. Consider cultural and social influences on pain and pain management 6. Notify LIP if interventions ineffective or patient reports new pain 7. Monitor vital signs including pulse ox, end-tidal CO2 based on pain intervention 8. Reassess pain per policy 9. Teach patient or legal service center representative interventions for comforting Outcome: Progressing Note: Evaluation of progress towards goal: Patient's pain is assessed and documented with appropriate pain scale. Patient's pain is relieved with PRN medications. Problem: Safety Goal: Patient will be injury free during hospitalization Description: INTERVENTIONS: 1. Assess patient's risk for falls and implement fall prevention plan of care per policy 2. Provide and maintain a safe environment 3. Proper use of double Identifiers 4. Medication administration using the 5 rights 5. Hand hygiene 6. Specimens are labeled at the bedside 7. Instruct patient/ patient service center representative about use of safety devices 8. Include patient/ patient service center representative in decisions related to safety Outcome: Progressing Note: Evaluation of progress towards goal: Pt remains free from falls and injury, medicated using 5 rights, hand hygiene in and out of room, specimens labeled at bedside Problem: Infection Goal: Absence of infection during hospitalization Description: Interventions: 1. Assess and monitor for signs and symptoms of infection 2. Monitor lab/diagnostic results 3. Monitor all insertion sites i.e., indwelling lines, tubes and drains 4. Monitor endotracheal (as able) and nasal secretions for changes in amount and color 5. Administer medications as ordered 6. Instruct and encourage patient and family to use good hand hygiene technique 7. Identify and instruct patient/patient service center representative in use of appropriate isolation precautions for identified infection/symptoms 8. Provide and discuss with patient/patient service center representative on educational MDRO sheet 9. Encourage and monitor nutritional status daily and consult graphic art designer if indicated 10. Implement neutropenic guidelines as needed 11. Review exposure to history of communicable disease and recent travel history on admission 12. Encourage annual influenza vaccine 13. Encourage pneumonia vaccine Outcome: Progressing Note: Evaluation of progress towards goal: Pt vitals and labs monitored, proper standard precautions for infection prevention, all insertion/surgical sites monitored for infection Problem: Knowledge Deficit Goal: Patient/patient service center representative demonstrates understanding of disease process, treatment plan, medications, and discharge instructions Description: INTERVENTIONS 1. Complete learning assessment and assess knowledge base 2. Provide teaching at level of understanding 3. Provide teaching via preferred learning method(s) Outcome: Progressing Note: Evaluation of progress towards goal: Pt demonstrates understanding of disease process, treatment plan and medications Problem: Discharge Planning Goal: Discharge to post-acute care, other facility, or home with appropriate resources Description: Patient's goal is: INTERVENTIONS 1. Conduct assessment to determine patient/family and health care team treatment goals, and need for post-acute services based on payer coverage, community resources, and patient preferences, and barriers to discharge 2. Coordinate with Social work, Care Navigation, and Utilization Review to arrange appropriate level of services according to patient's needs based on patient preference and payer coverage in collaboration with the physician and health care team 3. Address psychosocial, clinical, and financial barriers to discharge as identified in assessment in conjunction with the patient/family and health care team 4. Consult appropriate ancillary services (i.e.. PT/OT/ST, etc) as needed 5. Communicate with and update the patient/family, physician, and health care team regarding progress on the discharge plan 6. Identify discharge learning needs (meds, wound care, etc). 7. Arrange for needed discharge transportation as appropriate Outcome: Progressing Note: Evaluation of progress towards goal: Awaiting discharge instructions Problem: Low Risk Fall Score Description: Spring Fall Score of 0 - 24 or indicated by [facility] Assessment Goal: Patient should be free from fall Description: Interventions: 1. [place] to environment 2. Hourly rounds addressing the 4 P's (Pain, Positioning, Possessions, Potty) 3. Clear area of hazards (spills, clutter, electrical cords, unnecessary equipment) 4. Place equipment (bed & TV controls, call light, phone, urinal) within reach 5. Encourage patient to wear glasses and hearing aides as appropriate 6. Maintain bed in lowest position 7. Lock wheels on bed/wheelchair 8. Provide adequate lighting, including night light 9. Assess need for additional bedding, food/fluids, pain med's prior to sleep/routinely 10. Provide gripper slippers or personal non-skid footwear 11. Teach patient and patient service center representative to maintain environment for safety and engage in all aspects of fall prevention program Outcome: Progressing Note: Evaluation of progress towards goal: Patient remains free from falls and injuries. Patient's 5 P's addressed. Patient bed is in a locked position. Patient has call light for assistance. T [facility] [employer] [facility] 04-23-2024 Plan of care note Problem: Pain Goal: Patient goal is pain score less than 4, able to rest, and participant in treatment plan as appropriate Description: INTERVENTIONS: 1. Encourage patient or legal service center representative to report early pain and ask for pain medicine when needed 2. Assess pain using appropriate pain scale and include the scale used when documenting 3. Administer analgesics based on type and severity of pain and evaluate response within appropriate time frame 4. Implement non-pharmacological measures as appropriate and evaluate response 5. Consider cultural and social influences on pain and pain management 6. Notify LIP if interventions ineffective or patient reports new pain 7. Monitor vital signs including pulse ox, end-tidal CO2 based on pain intervention 8. Reassess pain per policy 9. Teach patient or legal service center representative interventions for comforting Outcome: Progressing Note: Evaluation of progress towards goal: patient states abdominal pain. Rn medicates per prn scale Problem: Safety Goal: Patient will be injury free during hospitalization Description: INTERVENTIONS: 1. Assess patient's risk for falls and implement fall prevention plan of care per policy 2. Provide and maintain a safe environment 3. Proper use of double Identifiers 4. Medication administration using the 5 rights 5. Hand hygiene 6. Specimens are labeled at the bedside 7. Instruct patient/ patient service center representative about use of safety devices 8. Include patient/ patient service center representative in decisions related to safety Outcome: Progressing Note: Evaluation of progress towards goal: patient is independent and stead on feet Problem: Knowledge Deficit Goal: Patient/patient service center representative demonstrates understanding of disease process, treatment plan, medications, and discharge instructions Description: INTERVENTIONS 1. Complete learning assessment and assess knowledge base 2. Provide teaching at level of understanding 3. Provide teaching via preferred learning method(s) Note: Evaluation of progress towards goal: patient educated on importance of ambulating in the hallways [facility] [employer] [facility] 04-23-2024 Procedure note Bonnie-en-Y Gastric Bypass Operative Note Patient: Shira Jett : 1995 Date: 04/23/24 Preoperative diagnosis: Class 3 obesity with a BMI of 66.9 Postoperative diagnosis: same Procedure: Robotic Bonnie-en-Y Gastric Bypass Surgeon: Tonia Manzo MD Inspector Crystal: Hanna Jaquez MD-Fellow Anesthesia: General Endotracheal Intra-operative TAP Block Estimated Blood loss: 10 ml Fluids: 2L crystalloid Indications: The patient is a 29 y.o. female who presented with morbid obesity with associated comorbidities. The risks and benefits of weight loss surgery has been thoroughly discussed and reviewed and consent was obtained. The pre-op requirements for bariatric surgery have been met. Procedure: The patient was brought to the operating room and placed supine on the operating room table. After anesthesia was administered the abdomen was prepped and draped in the usual sterile fashion. I entered the abdomen approximately 12-14 cm distal to the xyophoid process and to the right of the midline. To do this a skin incision was made. A 0 degree laparoscope was then introduced using an optical access trocar. Pneumoperitoneum was then established through this trocar. Once pneumoperitoneum was created all ports were placed in a standard fashion for a robotic Bonnie-en-Y gastric bypass and a Eze liver retractor was also introduced in a subxyphoid location and the liver was elevated. Prior to proceeding with the operation, an intraoperative TAP block was performed. Under visualization with the laparoscope, a needle was inserted percutaneously and, confirming that I was in the right plane, 30 mL of Marcaine were injected on both sides for a total of 60 ml. Good separation of the muscle planes was seen bilaterally indicating good placement of the anesthetic solution. Prior to docking the robot, the ligament of Trietz was clearly identified and a distance of approximately 100 cm was measured and at this level, the mesentery was marked to delineate the proximal and distal bowel. One hemoclip was used to sonu the BP end and two clips were placed distally to sonu the Bonnie limb. The patient was then placed in the reverse trendelenburg position and the robotic patient cart was brought in the from the patient s side and docked and the remaining parts of the procedure were performed from the console. I first inspected the esophageal hiatus and there was no evidence of a significant hiatal hernia. The angle of His was mobilized bluntly. I then measured a distance of 5 cm distal to the GE junction and at this level, the lesser curve fat and vasculature were divided using the vessel sealer device, making sure to avoid the left gastric artery. Having gained clear access to the lesser sac, a 60 blue load robotic stapler was used to start the creation of the pouch distally. Once this fire was done then a 32 Qatari VisiGi 3D orogastric tube was guided along the lesser curve into the pouch and then the pouch was completed using a total of 3 white loads of the robotic stapler with the tube in place. Once the pouch was created then the omentum was reflected in the epigastrium and using the vessel sealer device I did divide the omentum starting at the transverse colon and working proximally to create a passage for the antecolic Bonnie limb. Next, the transverse mesocolon was elevated and the previously placed clips were easily identified marking proximal and distal. The bowel was then brought up to the pouch in an Ararat loop technique and reached the pouch without any tension. Enterotomies were then made using the hot scissors in both pouch and the small bowel. A linear stapled gastrojejunostomy was then performed using a blue load robotic stapler to a distance of approximately 28 mm. The stoma was then closed in two layers using a 0 Stratafix suture in a running fashion. Prior to completing the stoma, the 32 Qatari tube was advanced from the pouch into the Bonnie limb. The sutures were secured using a hemlock. Once the gastrojejunostomy was completed, then the small bowel was divided just lateral to the gastrojejunostomy using a 60 white load of the robotic stapler. I then measured a distance of 120 cm for the Bonnie limb and the jejunojejunostomy was completed in the left upper quadrant. To do this, enterotomies were made using hot scissors in both the BP limb as well as the Bonnie limb and then a acdu-bd-cgmd stapled jejunojejunostomy was completed using a 60 white load robotic stapler. The jejunal defect was then closed using a running 2-0 V lock suture and then the mesenteric defect was closed with a running 2-0 Ethibond suture. Once this was all completed, an intraoperative leak test was performed using IcG and saline solution through the OG tube. The Bonnie limb was occluded. The pouch was then filled with the solution through the OG tube. The anastomosis and pouch staple line was inspected using the firefly function and there was no evidence of a leak. The pouch was suctioned out and the OG was withdrawn. Once this was completed then both anastomoses were checked one more time. There was no evidence of any bleeding or ischemia so the Eze liver retractor was removed under vision. All remaining robotic instruments were removed under vision, as were the ports and then the camera port was removed last. Once all ports were out all skin incisions were injected with local anesthetic solution, closed with 4-0 Monocryl suture and then skin glue material was applied. The patient tolerated the procedure well and was transferred to the recovery room in satisfactory condition. OTNIA MANZO MD 04/23/[address] [facility] 04-23-2024 Attending History and physical note HISTORY AND PHYSICAL INTERVAL NOTE: Shira Jett 1995 [id number] H&P reviewed. The patient was examined and there are no changes to the H&P. TONIA MANZO MD Source Note - Brenda Hubbard APRN-COMPUTED TOMOGRAPHY TECHNOLOGIST - 04/15/2024 8:30 AM EDT PRE-ADMISSION TESTING HISTORY AND PHYSICAL EXAM DATE: 04/15/24 PCP: Riddhi Plata MD HISTORY OF PRESENT ILLNESS: Shira Jett, a 29 y.o. White or female, presents to [facility] for a pre-surgical H&P. The patient has been diagnosed with MORBID OBESITY/HYPERTENSION . Patient states she has struggled with her weight for her entire life. She states that there is a family history of obesity on both sides. Patient does have a history of PCOS. Patient's mother had bariatric surgery many years ago. Patient has tried multiple diets to lose weight including portion control, keto, Atkins with very little sustained weight loss. She is currently walking almost daily for exercise and taking her kids to the park to play. She has been thinking about bariatric surgery for the last 2 years. Her family is supportive in her decision to undergo bariatric surgery. Her goal is to feel healthy, get her blood pressure under control and possibly go off of some of her medications as well as decreased her body and joint pain. She denies any recent illness, fever, or cough. Anesthesia problems: denies. Latex allergy: denies. Bleeding/ clotting disorders: denies. Recent hospitalizations: denies. PAST MEDICAL HISTORY: Past Medical History: Diagnosis Date ADHD (attention deficit hyperactivity disorder) Allergic Anemia while Anxiety Asthma Back pain Depression GERD (gastroesophageal reflux disease) Gestational diabetes 12/09/2018 Irregular heart beat Menstrual flow excessive Migraine Muscle pain Obesity Obstructive sleep apnea PCOS (polycystic ovarian syndrome) Pneumonia Preeclampsia, severe 11/23/2018 Pulmonary embolism ([facility]) Shortness of breath Visual impairment stigmatism PAST SURGICAL HISTORY: Past Surgical History: Procedure Laterality Date MINI-LAPAROTOMY removal of IUD FAMILY HISTORY: Family History Problem Relation Age of Onset Diabetes Mother Hypertension Mother Anemia Mother Diabetes Father Hypertension Father Arthritis Father Depression Father Clotting disorder Father COPD Father Mental illness Father Breast cancer Maternal Grandmother Diabetes Maternal Grandmother Ovarian cancer Maternal Grandmother defects Maternal Grandfather Diabetes Paternal Grandmother Asthma Paternal Grandmother Breast cancer Paternal Grandmother defects Paternal Grandfather Diabetes Paternal Grandfather Anesthesia problems Neg Hx SOCIAL HISTORY: The patient reports that she does not currently use alcohol. She reports that she has never smoked. She has never used smokeless tobacco. She reports no history of drug use. ALLERGIES: Allergies Allergen Reactions Sumatriptan Anaphylaxis and Other (See Comments) IMITREX FOR MIGRAINES MEDICATIONS: Current Outpatient Medications: albuterol (PROVENTIL HFA;VENTOLIN HFA) 90 mcg/actuation inhaler, Inhale 2 puffs every 4 (four) hours as needed for wheezing., Disp: 18 g, Rfl: 0 buspirone HCl (BUSPIRONE ORAL), Take 50 mg by mouth in the morning and 50 mg before bedtime., Disp: , Rfl: cholecalciferol, vitamin D3, 50,000 units tablet, Take 1 tablet (50,000 Units total) by mouth once a week., Disp: 12 tablet, Rfl: 0 citalopram (CeleXA) 20 mg tablet, Take 1 tablet (20 mg total) by mouth nightly Indications: anxiousness associated with depression., Disp: , Rfl: docusate sodium (COLACE) 100 mg capsule, Take 1 capsule (100 mg total) by mouth in the morning and 1 capsule (100 mg total) before bedtime. Start one week prior to surgery and continue two weeks after surgery.., Disp: 42 capsule, Rfl: 0 lisinopriL (PRINIVIL,ZESTRIL) 20 mg tablet, Take 0.5 tablets (10 mg total) by mouth in the morning., Disp: , Rfl: omeprazole (PriLOSEC) 20 mg capsule, Take 1 capsule (20 mg total) by mouth nightly., Disp: , Rfl: REVIEW OF SYSTEMS: Review of Systems Constitutional: Negative. HENT: Negative. Eyes: Negative. Respiratory: Positive for apnea. Negative for shortness of breath and wheezing. Cardiovascular: Negative for chest pain, palpitations and tachycardia. Gastrointestinal: GERD, morbid obesity Endocrine: Negative. Genitourinary: PCOS Musculoskeletal: Negative. Skin: Negative. Allergic/Immunologic: Negative. Neurological: Negative. Hematological: Negative. Psychiatric/Behavioral: Negative. VITAL SIGNS: BP 112/58 Pulse 76 Temp 36.8 C (98.2 F) (Temporal) Resp 18 Ht 154.9 cm (5' 1 ) Wt (!) 163.2 kg (359 lb 12.7 oz) LMP 03/07/2024 Comment: irregular cycles SpO2 97% BMI 67.98 kg/m PHYSICAL EXAM: Physical Exam Constitutional: Appearance: Normal appearance. HENT: Head: Normocephalic and atraumatic. Nose: Nose normal. Mouth/Throat: Pharynx: Oropharynx is clear. Eyes: Extraocular Movements: Extraocular movements intact. Conjunctiva/sclera: Conjunctivae normal. Pupils: Pupils are equal, round, and reactive to light. Cardiovascular: Rate and Rhythm: Normal rate and regular rhythm. Heart sounds: Normal heart sounds. Pulmonary: Effort: Pulmonary effort is normal. Breath sounds: Normal breath sounds. Abdominal: General: Bowel sounds are normal. Palpations: Abdomen is soft. Comments: Obesity Musculoskeletal: General: Normal range of motion. Cervical back: Normal range of motion and neck supple. Skin: General: Skin is warm. Neurological: General: No focal deficit present. Mental Status: She is alert and oriented to person, place, and time. RECENT LABS: Lab Results Component Value Date WBC 9.5 10/26/2023 HGB 11.7 10/26/2023 HCT 34.8 (L) 10/26/2023 PLT 332 10/26/2023 INR 1.4 (H) 07/30/2022 PTT 30 07/30/2022 SODIUM 133 (L) 10/26/2023 K 3.7 10/26/2023 CL 107 10/26/2023 CO2 21 (L) 10/26/2023 CALCIUM 9.0 10/26/2023 ALKPHOS 82 10/26/2023 ALBUMIN 3.7 10/26/2023 GLU 115 (H) 10/26/2023 HGBA1C 6.0 (H) 03/24/2024 ALT 69 (H) 10/26/2023 AST 39 10/26/2023 CREATININE 0.59 10/26/2023 BUN 12 10/26/2023 GFR >60 11/24/2021 GFR >60 11/24/2021 EGFR >90 10/26/2023 TSH 1.53 03/24/2024 *Please note that labs listed above are the most recent lab values available in [facility] at the time of the office visit and additional labs may have been drawn since that time. ASSESSMENT / DIAGNOSIS: MORBID OBESITY/HYPERTENSION PLAN: Shira Jett is scheduled for Davinci Bypass Gastric Bonnie En Y on 04/23/[address] Manzo. MACREL Louis 04/15/24 1001 MARCEL Louis 04/23/24 [id number] [facility] [employer] [facility] 04-23-2024 History and physical note HISTORY AND PHYSICAL INTERVAL NOTE: Shira Jett 1995 [id number] H&P reviewed. The patient was examined and there are no changes to the H&P. TONIA MANZO MD Source Note - Brenda Hubbard, KNITTER MACHINE-COMPUTED TOMOGRAPHY TECHNOLOGIST - 04/15/2024 8:30 AM EDT PRE-ADMISSION TESTING HISTORY AND PHYSICAL EXAM DATE: 04/15/24 PCP: Riddhi Plata MD HISTORY OF PRESENT ILLNESS: Shira Jett, a 29 y.o. White or female, presents to [facility] for a pre-surgical H&P. The patient has been diagnosed with MORBID OBESITY/HYPERTENSION . Patient states she has struggled with her weight for her entire life. She states that there is a family history of obesity on both sides. Patient does have a history of PCOS. Patient's mother had bariatric surgery many years ago. Patient has tried multiple diets to lose weight including portion control, keto, Atkins with very little sustained weight loss. She is currently walking almost daily for exercise and taking her kids to the park to play. She has been thinking about bariatric surgery for the last 2 years. Her family is supportive in her decision to undergo bariatric surgery. Her goal is to feel healthy, get her blood pressure under control and possibly go off of some of her medications as well as decreased her body and joint pain. She denies any recent illness, fever, or cough. Anesthesia problems: denies. Latex allergy: denies. Bleeding/ clotting disorders: denies. Recent hospitalizations: denies. PAST MEDICAL HISTORY: Past Medical History: Diagnosis Date ADHD (attention deficit hyperactivity disorder) Allergic Anemia while Anxiety Asthma Back pain Depression GERD (gastroesophageal reflux disease) Gestational diabetes 12/09/2018 Irregular heart beat Menstrual flow excessive Migraine Muscle pain Obesity Obstructive sleep apnea PCOS (polycystic ovarian syndrome) Pneumonia Preeclampsia, severe 11/23/2018 Pulmonary embolism ([facility]) Shortness of breath Visual impairment stigmatism PAST SURGICAL HISTORY: Past Surgical History: Procedure Laterality Date MINI-LAPAROTOMY removal of IUD FAMILY HISTORY: Family History Problem Relation Age of Onset Diabetes Mother Hypertension Mother Anemia Mother Diabetes Father Hypertension Father Arthritis Father Depression Father Clotting disorder Father COPD Father Mental illness Father Breast cancer Maternal Grandmother Diabetes Maternal Grandmother Ovarian cancer Maternal Grandmother defects Maternal Grandfather Diabetes Paternal Grandmother Asthma Paternal Grandmother Breast cancer Paternal Grandmother defects Paternal Grandfather Diabetes Paternal Grandfather Anesthesia problems Neg Hx SOCIAL HISTORY: The patient reports that she does not currently use alcohol. She reports that she has never smoked. She has never used smokeless tobacco. She reports no history of drug use. ALLERGIES: Allergies Allergen Reactions Sumatriptan Anaphylaxis and Other (See Comments) IMITREX FOR MIGRAINES MEDICATIONS: Current Outpatient Medications: albuterol (PROVENTIL HFA;VENTOLIN HFA) 90 mcg/actuation inhaler, Inhale 2 puffs every 4 (four) hours as needed for wheezing., Disp: 18 g, Rfl: 0 buspirone HCl (BUSPIRONE ORAL), Take 50 mg by mouth in the morning and 50 mg before bedtime., Disp: , Rfl: cholecalciferol, vitamin D3, 50,000 units tablet, Take 1 tablet (50,000 Units total) by mouth once a week., Disp: 12 tablet, Rfl: 0 citalopram (CeleXA) 20 mg tablet, Take 1 tablet (20 mg total) by mouth nightly Indications: anxiousness associated with depression., Disp: , Rfl: docusate sodium (COLACE) 100 mg capsule, Take 1 capsule (100 mg total) by mouth in the morning and 1 capsule (100 mg total) before bedtime. Start one week prior to surgery and continue two weeks after surgery.., Disp: 42 capsule, Rfl: 0 lisinopriL (PRINIVIL,ZESTRIL) 20 mg tablet, Take 0.5 tablets (10 mg total) by mouth in the morning., Disp: , Rfl: omeprazole (PriLOSEC) 20 mg capsule, Take 1 capsule (20 mg total) by mouth nightly., Disp: , Rfl: REVIEW OF SYSTEMS: Review of Systems Constitutional: Negative. HENT: Negative. Eyes: Negative. Respiratory: Positive for apnea. Negative for shortness of breath and wheezing. Cardiovascular: Negative for chest pain, palpitations and tachycardia. Gastrointestinal: GERD, morbid obesity Endocrine: Negative. Genitourinary: PCOS Musculoskeletal: Negative. Skin: Negative. Allergic/Immunologic: Negative. Neurological: Negative. Hematological: Negative. Psychiatric/Behavioral: Negative. VITAL SIGNS: BP 112/58 Pulse 76 Temp 36.8 C (98.2 F) (Temporal) Resp 18 Ht 154.9 cm (5' 1 ) Wt (!) 163.2 kg (359 lb 12.7 oz) LMP 03/07/2024 Comment: irregular cycles SpO2 97% BMI 67.98 kg/m PHYSICAL EXAM: Physical Exam Constitutional: Appearance: Normal appearance. HENT: Head: Normocephalic and atraumatic. Nose: Nose normal. Mouth/Throat: Pharynx: Oropharynx is clear. Eyes: Extraocular Movements: Extraocular movements intact. Conjunctiva/sclera: Conjunctivae normal. Pupils: Pupils are equal, round, and reactive to light. Cardiovascular: Rate and Rhythm: Normal rate and regular rhythm. Heart sounds: Normal heart sounds. Pulmonary: Effort: Pulmonary effort is normal. Breath sounds: Normal breath sounds. Abdominal: General: Bowel sounds are normal. Palpations: Abdomen is soft. Comments: Obesity Musculoskeletal: General: Normal range of motion. Cervical back: Normal range of motion and neck supple. Skin: General: Skin is warm. Neurological: General: No focal deficit present. Mental Status: She is alert and oriented to person, place, and time. RECENT LABS: Lab Results Component Value Date WBC 9.5 10/26/2023 HGB 11.7 10/26/2023 HCT 34.8 (L) 10/26/2023 PLT 332 10/26/2023 INR 1.4 (H) 07/30/2022 PTT 30 07/30/2022 SODIUM 133 (L) 10/26/2023 K 3.7 10/26/2023 CL 107 10/26/2023 CO2 21 (L) 10/26/2023 CALCIUM 9.0 10/26/2023 ALKPHOS 82 10/26/2023 ALBUMIN 3.7 10/26/2023 GLU 115 (H) 10/26/2023 HGBA1C 6.0 (H) 03/24/2024 ALT 69 (H) 10/26/2023 AST 39 10/26/2023 CREATININE 0.59 10/26/2023 BUN 12 10/26/2023 GFR >60 11/24/2021 GFR >60 11/24/2021 EGFR >90 10/26/2023 TSH 1.53 03/24/2024 *Please note that labs listed above are the most recent lab values available in [facility] at the time of the office visit and additional labs may have been drawn since that time. ASSESSMENT / DIAGNOSIS: MORBID OBESITY/HYPERTENSION PLAN: Shira Jett is scheduled for Davinci Bypass Gastric Bonnie En Y on 04/23/[address] Manzo. MARCEL Louis 04/15/24 1001 MARCEL Louis 04/23/24 [id number] documented in this encounter [facility] 04-17-2024 Miscellaneous Notes Patient contacted office. Needs RX for colace resent to [facility]. documented in this encounter [facility] 04-17-2024 Telephone encounter Note Patient contacted office. Needs RX for colace resent to [facility]. [facility] 04-16-2024 Note XR CHEST 2 VWS Clinical history: Preoperative evaluation. Comparisons: 11/24/2018 through 06/23/2023. Findings: PA and lateral chest radiographs were obtained. Cardiomediastinal silhouette and pulmonary vasculature appear within normal limits. Lungs appear clear. There is no evidence for pleural effusion nor pneumothorax. IMPRESSION: No evidence for acute cardiopulmonary disease. Finalized by Patel Abraham MD on 04/16/2024 11:03 AM [facility] 04-15-2024 History of Present illness Narrative Pre-operative Bariatric Educational Class Date and start time of pre-operative class: 04/15/2024 1418 Date and end time of pre-operative class: 04/15/2024 1530 DX: Morbid obesity, BMI 67.98 The following education was reviewed during the pre-operative class: 1. Reinforced potential risks already reviewed by the surgeon:leak, blood clots, pulmonary embolus, dumping syndrome, nutritional deficiencies and infection. 2. Reviewed patient's role in helping prevent complications: ambulating, deep breathing and coughing exercises, using incentive spirometer every hour X 10 times, following the recommended diet, compliance with taking recommended vitamins and minerals and knowing the signs and symptoms of complications to report. 3. [id number] steps to weight loss surgery. 4. Instructed to bring [facility] Bariatric Guide to all appointments. 5. Explained patient's role with importance of follow-up care in a comprehensive accredited program. 6. Reviewed Introduction tab - contact numbers and bariatric websites. Informed of having a physician on-call at all times during the day and night. 7. Reviewed Preparing for Surgery tab - Importance of exercise, Medications before and after surgery, Alcohol and Smoking, Tobacco policy, Your hospital stay. 8. Reviewed Surgery tab- Types of surgery, Benefits of laparoscopic surgery, Risks of bariatric operations, Pre-operative liquid diet, Before surgery, Pre-operative shower and Your surgery. 9. Reviewed Day 1 tab - Discharge from the hospital, Follow-up visits with your bariatric team, Support groups, Emotional concerns after weight loss surgery. 10. Demonstrated proper use of incentive spirometer, EPC cuffs, [employer] tennis shoe magnet, Lovenox injections, Drain care and Monitoring for signs and symptoms of infection, leak, blood clot or pulmonary embolus. 11. Provided an opportunity to ask questions. Written materials provided within the [facility] Bariatric Guide. Attesting Statement (Primary Care Exception) I reviewed the care furnished by the resident, immediately after the visit including the medical history, diagnosis, findings on physical examination, and treatment plan. I participated in the review and direction of the services furnished by Page Huang RN. [facility] Instructions Nilam Stallworth RN - 04/15/2024 2:00 PM EDT Preoperative Bariatric Surgery Educational Class [facility] 04-15-2024 History of Present illness Narrative Pre op CXR entered. documented in this encounter [facility] 04-15-2024 History and physical note PRE-ADMISSION TESTING HISTORY AND PHYSICAL EXAM DATE: 04/15/24 PCP: Riddhi Plata MD HISTORY OF PRESENT ILLNESS: Shira Jett, a 29 y.o. White or female, presents to [facility] for a pre-surgical H&P. The patient has been diagnosed with MORBID OBESITY/HYPERTENSION . Patient states she has struggled with her weight for her entire life. She states that there is a family history of obesity on both sides. Patient does have a history of PCOS. Patient's mother had bariatric surgery many years ago. Patient has tried multiple diets to lose weight including portion control, keto, Atkins with very little sustained weight loss. She is currently walking almost daily for exercise and taking her kids to the park to play. She has been thinking about bariatric surgery for the last 2 years. Her family is supportive in her decision to undergo bariatric surgery. Her goal is to feel healthy, get her blood pressure under control and possibly go off of some of her medications as well as decreased her body and joint pain. She denies any recent illness, fever, or cough. Anesthesia problems: denies. Latex allergy: denies. Bleeding/ clotting disorders: denies. Recent hospitalizations: denies. PAST MEDICAL HISTORY: Past Medical History: Diagnosis Date ADHD (attention deficit hyperactivity disorder) Allergic Anemia while Anxiety Asthma Back pain Depression GERD (gastroesophageal reflux disease) Gestational diabetes 12/09/2018 Irregular heart beat Menstrual flow excessive Migraine Muscle pain Obesity Obstructive sleep apnea PCOS (polycystic ovarian syndrome) Pneumonia Preeclampsia, severe 11/23/2018 Pulmonary embolism ([facility]) Shortness of breath Visual impairment stigmatism PAST SURGICAL HISTORY: Past Surgical History: Procedure Laterality Date MINI-LAPAROTOMY removal of IUD FAMILY HISTORY: Family History Problem Relation Age of Onset Diabetes Mother Hypertension Mother Anemia Mother Diabetes Father Hypertension Father Arthritis Father Depression Father Clotting disorder Father COPD Father Mental illness Father Breast cancer Maternal Grandmother Diabetes Maternal Grandmother Ovarian cancer Maternal Grandmother defects Maternal Grandfather Diabetes Paternal Grandmother Asthma Paternal Grandmother Breast cancer Paternal Grandmother defects Paternal Grandfather Diabetes Paternal Grandfather Anesthesia problems Neg Hx SOCIAL HISTORY: The patient reports that she does not currently use alcohol. She reports that she has never smoked. She has never used smokeless tobacco. She reports no history of drug use. ALLERGIES: Allergies Allergen Reactions Sumatriptan Anaphylaxis and Other (See Comments) IMITREX FOR MIGRAINES MEDICATIONS: Current Outpatient Medications: albuterol (PROVENTIL HFA;VENTOLIN HFA) 90 mcg/actuation inhaler, Inhale 2 puffs every 4 (four) hours as needed for wheezing., Disp: 18 g, Rfl: 0 buspirone HCl (BUSPIRONE ORAL), Take 50 mg by mouth in the morning and 50 mg before bedtime., Disp: , Rfl: cholecalciferol, vitamin D3, 50,000 units tablet, Take 1 tablet (50,000 Units total) by mouth once a week., Disp: 12 tablet, Rfl: 0 citalopram (CeleXA) 20 mg tablet, Take 1 tablet (20 mg total) by mouth nightly Indications: anxiousness associated with depression., Disp: , Rfl: docusate sodium (COLACE) 100 mg capsule, Take 1 capsule (100 mg total) by mouth in the morning and 1 capsule (100 mg total) before bedtime. Start one week prior to surgery and continue two weeks after surgery.., Disp: 42 capsule, Rfl: 0 lisinopriL (PRINIVIL,ZESTRIL) 20 mg tablet, Take 0.5 tablets (10 mg total) by mouth in the morning., Disp: , Rfl: omeprazole (PriLOSEC) 20 mg capsule, Take 1 capsule (20 mg total) by mouth nightly., Disp: , Rfl: REVIEW OF SYSTEMS: Review of Systems Constitutional: Negative. HENT: Negative. Eyes: Negative. Respiratory: Positive for apnea. Negative for shortness of breath and wheezing. Cardiovascular: Negative for chest pain, palpitations and tachycardia. Gastrointestinal: GERD, morbid obesity Endocrine: Negative. Genitourinary: PCOS Musculoskeletal: Negative. Skin: Negative. Allergic/Immunologic: Negative. Neurological: Negative. Hematological: Negative. Psychiatric/Behavioral: Negative. VITAL SIGNS: BP 112/58 Pulse 76 Temp 36.8 C (98.2 F) (Temporal) Resp 18 Ht 154.9 cm (5' 1 ) Wt (!) 163.2 kg (359 lb 12.7 oz) LMP 03/07/2024 Comment: irregular cycles SpO2 97% BMI 67.98 kg/m PHYSICAL EXAM: Physical Exam Constitutional: Appearance: Normal appearance. HENT: Head: Normocephalic and atraumatic. Nose: Nose normal. Mouth/Throat: Pharynx: Oropharynx is clear. Eyes: Extraocular Movements: Extraocular movements intact. Conjunctiva/sclera: Conjunctivae normal. Pupils: Pupils are equal, round, and reactive to light. Cardiovascular: Rate and Rhythm: Normal rate and regular rhythm. Heart sounds: Normal heart sounds. Pulmonary: Effort: Pulmonary effort is normal. Breath sounds: Normal breath sounds. Abdominal: General: Bowel sounds are normal. Palpations: Abdomen is soft. Comments: Obesity Musculoskeletal: General: Normal range of motion. Cervical back: Normal range of motion and neck supple. Skin: General: Skin is warm. Neurological: General: No focal deficit present. Mental Status: She is alert and oriented to person, place, and time. RECENT LABS: Lab Results Component Value Date WBC 9.5 10/26/2023 HGB 11.7 10/26/2023 HCT 34.8 (L) 10/26/2023 PLT 332 10/26/2023 INR 1.4 (H) 07/30/2022 PTT 30 07/30/2022 SODIUM 133 (L) 10/26/2023 K 3.7 10/26/2023 CL 107 10/26/2023 CO2 21 (L) 10/26/2023 CALCIUM 9.0 10/26/2023 ALKPHOS 82 10/26/2023 ALBUMIN 3.7 10/26/2023 GLU 115 (H) 10/26/2023 HGBA1C 6.0 (H) 03/24/2024 ALT 69 (H) 10/26/2023 AST 39 10/26/2023 CREATININE 0.59 10/26/2023 BUN 12 10/26/2023 GFR >60 11/24/2021 GFR >60 11/24/2021 EGFR >90 10/26/2023 TSH 1.53 03/24/2024 *Please note that labs listed above are the most recent lab values available in [facility] at the time of the office visit and additional labs may have been drawn since that time. ASSESSMENT / DIAGNOSIS: MORBID OBESITY/HYPERTENSION PLAN: Shira Jett is scheduled for Davinci Bypass Gastric Bonnie En Y on 04/23/[address] Manzo. MARCEL Louis 04/15/24 1001 [facility] Work Phone: 04-15-2024 History and physical note PRE-ADMISSION TESTING HISTORY AND PHYSICAL EXAM DATE: 04/15/24 PCP: Riddhi Plata MD HISTORY OF PRESENT ILLNESS: Shira Jett, a 29 y.o. White or female, presents to [facility] for a pre-surgical H&P. The patient has been diagnosed with MORBID OBESITY/HYPERTENSION . Patient states she has struggled with her weight for her entire life. She states that there is a family history of obesity on both sides. Patient does have a history of PCOS. Patient's mother had bariatric surgery many years ago. Patient has tried multiple diets to lose weight including portion control, keto, Atkins with very little sustained weight loss. She is currently walking almost daily for exercise and taking her kids to the park to play. She has been thinking about bariatric surgery for the last 2 years. Her family is supportive in her decision to undergo bariatric surgery. Her goal is to feel healthy, get her blood pressure under control and possibly go off of some of her medications as well as decreased her body and joint pain. She denies any recent illness, fever, or cough. Anesthesia problems: denies. Latex allergy: denies. Bleeding/ clotting disorders: denies. Recent hospitalizations: denies. PAST MEDICAL HISTORY: Past Medical History: Diagnosis Date ADHD (attention deficit hyperactivity disorder) Allergic Anemia while Anxiety Asthma Back pain Depression GERD (gastroesophageal reflux disease) Gestational diabetes 12/09/2018 Irregular heart beat Menstrual flow excessive Migraine Muscle pain Obesity Obstructive sleep apnea PCOS (polycystic ovarian syndrome) Pneumonia Preeclampsia, severe 11/23/2018 Pulmonary embolism ([facility]) Shortness of breath Visual impairment stigmatism PAST SURGICAL HISTORY: Past Surgical History: Procedure Laterality Date MINI-LAPAROTOMY removal of IUD FAMILY HISTORY: Family History Problem Relation Age of Onset Diabetes Mother Hypertension Mother Anemia Mother Diabetes Father Hypertension Father Arthritis Father Depression Father Clotting disorder Father COPD Father Mental illness Father Breast cancer Maternal Grandmother Diabetes Maternal Grandmother Ovarian cancer Maternal Grandmother defects Maternal Grandfather Diabetes Paternal Grandmother Asthma Paternal Grandmother Breast cancer Paternal Grandmother defects Paternal Grandfather Diabetes Paternal Grandfather Anesthesia problems Neg Hx SOCIAL HISTORY: The patient reports that she does not currently use alcohol. She reports that she has never smoked. She has never used smokeless tobacco. She reports no history of drug use. ALLERGIES: Allergies Allergen Reactions Sumatriptan Anaphylaxis and Other (See Comments) IMITREX FOR MIGRAINES MEDICATIONS: Current Outpatient Medications: albuterol (PROVENTIL HFA;VENTOLIN HFA) 90 mcg/actuation inhaler, Inhale 2 puffs every 4 (four) hours as needed for wheezing., Disp: 18 g, Rfl: 0 buspirone HCl (BUSPIRONE ORAL), Take 50 mg by mouth in the morning and 50 mg before bedtime., Disp: , Rfl: cholecalciferol, vitamin D3, 50,000 units tablet, Take 1 tablet (50,000 Units total) by mouth once a week., Disp: 12 tablet, Rfl: 0 citalopram (CeleXA) 20 mg tablet, Take 1 tablet (20 mg total) by mouth nightly Indications: anxiousness associated with depression., Disp: , Rfl: docusate sodium (COLACE) 100 mg capsule, Take 1 capsule (100 mg total) by mouth in the morning and 1 capsule (100 mg total) before bedtime. Start one week prior to surgery and continue two weeks after surgery.., Disp: 42 capsule, Rfl: 0 lisinopriL (PRINIVIL,ZESTRIL) 20 mg tablet, Take 0.5 tablets (10 mg total) by mouth in the morning., Disp: , Rfl: omeprazole (PriLOSEC) 20 mg capsule, Take 1 capsule (20 mg total) by mouth nightly., Disp: , Rfl: REVIEW OF SYSTEMS: Review of Systems Constitutional: Negative. HENT: Negative. Eyes: Negative. Respiratory: Positive for apnea. Negative for shortness of breath and wheezing. Cardiovascular: Negative for chest pain, palpitations and tachycardia. Gastrointestinal: GERD, morbid obesity Endocrine: Negative. Genitourinary: PCOS Musculoskeletal: Negative. Skin: Negative. Allergic/Immunologic: Negative. Neurological: Negative. Hematological: Negative. Psychiatric/Behavioral: Negative. VITAL SIGNS: BP 112/58 Pulse 76 Temp 36.8 C (98.2 F) (Temporal) Resp 18 Ht 154.9 cm (5' 1 ) Wt (!) 163.2 kg (359 lb 12.7 oz) LMP 03/07/2024 Comment: irregular cycles SpO2 97% BMI 67.98 kg/m PHYSICAL EXAM: Physical Exam Constitutional: Appearance: Normal appearance. HENT: Head: Normocephalic and atraumatic. Nose: Nose normal. Mouth/Throat: Pharynx: Oropharynx is clear. Eyes: Extraocular Movements: Extraocular movements intact. Conjunctiva/sclera: Conjunctivae normal. Pupils: Pupils are equal, round, and reactive to light. Cardiovascular: Rate and Rhythm: Normal rate and regular rhythm. Heart sounds: Normal heart sounds. Pulmonary: Effort: Pulmonary effort is normal. Breath sounds: Normal breath sounds. Abdominal: General: Bowel sounds are normal. Palpations: Abdomen is soft. Comments: Obesity Musculoskeletal: General: Normal range of motion. Cervical back: Normal range of motion and neck supple. Skin: General: Skin is warm. Neurological: General: No focal deficit present. Mental Status: She is alert and oriented to person, place, and time. RECENT LABS: Lab Results Component Value Date WBC 9.5 10/26/2023 HGB 11.7 10/26/2023 HCT 34.8 (L) 10/26/2023 PLT 332 10/26/2023 INR 1.4 (H) 07/30/2022 PTT 30 07/30/2022 SODIUM 133 (L) 10/26/2023 K 3.7 10/26/2023 CL 107 10/26/2023 CO2 21 (L) 10/26/2023 CALCIUM 9.0 10/26/2023 ALKPHOS 82 10/26/2023 ALBUMIN 3.7 10/26/2023 GLU 115 (H) 10/26/2023 HGBA1C 6.0 (H) 03/24/2024 ALT 69 (H) 10/26/2023 AST 39 10/26/2023 CREATININE 0.59 10/26/2023 BUN 12 10/26/2023 GFR >60 11/24/2021 GFR >60 11/24/2021 EGFR >90 10/26/2023 TSH 1.53 03/24/2024 *Please note that labs listed above are the most recent lab values available in [facility] at the time of the office visit and additional labs may have been drawn since that time. ASSESSMENT / DIAGNOSIS: MORBID OBESITY/HYPERTENSION PLAN: Shira Jett is scheduled for Davinci Bypass Gastric Bonnie En Y on 04/23/[address] Manzo. MARCEL Louis 04/15/24 1001 documented in this encounter [facility] 04-15-2024 Instructions Melanie Garcia RN - 04/15/2024 8:30 AM EDT Your surgery/procedure is scheduled at [facility] on at 9:30 am Arrival Time 7:30 am [facility] Address: [address] [place] [address] Park in [address] Parking lot located on [facility]. Report to the Entrance B. Check in at the information desk the surgery. The waiting room located on the second floor. If you have any questions prior to surgery, please call Pre-Admission Clinic at [phone] between 7:30 am and 4:30 pm Sunday through Sunday. If you have questions the morning of surgery, please call the Pre-op Department at [phone]. Notify your SURGEON if you develop any illness such as a cold, cough, fever, sore throat, vomiting or are hospitalized between now and your surgery. CONTINUE TO TAKE YOUR MEDICATIONS PRESCRIBED. DO NOT STOP YOUR PRESCRIBED MEDICATIONS UNLESS DIRECTED BY YOUR PRESCRIBING PHYSICIAN Take the following medications the morning of surgery with a sip of water: Lisinopril. Diabetic or weight loss medications: STOP Take inhalers as prescribed the morning of surgery. . Blood thinners: Medications such as Coumadin, Heparin, Aspirin, Plavix, Eliquis, Pradaxa) Please contact your physician regarding a stop/hold date for these medications. Diabetics: If you take insulin, contact your prescribing doctor for instructions on how to manage this the night before and the morning of surgery. Non-steriodal Anti-Inflammatory Drugs (NSAIDS)- Stop 3 days prior to surgery unless otherwise directed by your surgeon. Vitamins/Herbal Products: You may continue to take your prescribed vitamins such as potassium, iron, vitamin B, vitamin C, or multivitamin unless specifically instructed by your surgeon to stop. STOP taking all herbal products/teas one week prior to your surgery. Marijuana: Stop marijuana 72 hours prior to surgery, stop CBD oil 48 hours prior to surgery. If you have been given bowel prep instructions by your surgeon, please call the surgeon's office with any questions about these instructions. What do I do the day of Surgery? Age 2 through adult - Stop all solids by midnight, You may have clear liquids up to 2 hours before surgery, unless otherwise instructed by your surgeon. Clear liquids are: water, sports drinks such as Gatorade or G2, or apple juice. You may NOT have: tube feedings, dairy products, alcoholic beverages, orange juice, or any liquids with solids or pulp in it. If applicable, shower again with CHG soap the morning of your surgery. If you received a green plastic bracelet, bring it with you the day of surgery and your nurse will put it on you. In order to help prevent infection post-operatively, you may be asked to use a CHG mouthwash when you arrive to the Pre-op area. Your nurse will provide instruction the morning of. What do I need to do to prepare for surgery? If you will be going home the same day as your surgery, arrange for an adult over [address] Riding in a bus or taxi by yourself is not permitted. You should not smoke or drink alcohol 24 hours before your surgery. Alcohol thins the blood and may cause bleeding problems during surgery. Smoking increases the risk of breathing problems after surgery. Do not use lotions, creams, powders, perfume, make up, cologne or after-shaves day of surgery. Remove ALL jewelry including wedding rings, body piercings (including dermal piercings ,hair extensions that contain metal, nail italian, make-up, and contact lens. You may brush your teeth the morning of surgery, but do not swallow the water. Wear your dentures and partial plates to the hospital (no adhesive). Shower the night the before. If applicable, use the CHG (chlorhexidine gluconate) soap or wipes What should I bring to the hospital? If you received a green plastic bracelet, bring it with you the day of surgery and your nurse will put it on you. Eyeglass or contact lens case If you will be spending the night, please bring personal care items and leave them in the car until you are taken to your room after surgery. Leave ALL valuables at home. If any of these instructions conflict with those you received from the surgeon, please seek clarification from your surgeon's office. DEEP BREATHING EXERCISES This exercise helps promote good air exchange and helps to prevent pneumonia after surgery. Breathe in slowly and deeply through the nose. Hold your breath for a few seconds and then exhale slowly through the mouth. Repeat this three times and then cough.Coughing helps to clear your lungs. If you have had a surgery with an incision into your abdomen or chest, press gently against your incision with a pillow or a folded blanket when you cough. Please be aware - it may not be ruiz to cough following some types of surgeries involving the eyes, ears, sinuses and throat. Always follow your doctor's instructions. LEG EXERCISE These exercises help promote good circulation and help to prevent blood clots after surgery. Point your toes to the ceiling and then point them to the wall. Do this slowly about 15-20 times. You may also move your feet in circles. Do the exercise that is most comfortable for you. If you have had surgery involving your shoulder or arm, we recommend you move your fingers. PRACTICING We ask that you begin practicing these exercises before your surgery. After surgery try to do both exercises at least every 2 hours during the day and early evening. SURGICAL SITE INFECTION PREVENTION What is a Surgical Site Infection? Infection can happen to the area of the body where surgery is done. This is called a surgical site infection (SSI). A SSI does not happen very often. Can SSIs be treated? Antibiotics are used to treat SSI. Some patients may need another surgery to treat the infection. The doctor will discuss treatment options with you. What are some of the things that hospitals are doing to prevent SSIs? Soap and water or alcohol hand rub are used before and after caring for each patient. Special soap is used to clean surgery workers hands and arms just before the surgery. Masks, gowns, gloves and hair covers are worn during the surgery to keep the area clean. Hair in the surgery area may be removed with clippers (not razors). A special soap that kills germs is used to clean the skin at the surgery site. Antibiotics may be given before the surgery starts. What can you do to prevent SSIs? Before surgery: You may be asked to shower or bathe with a special soap that kills germs the night before and the day of surgery. Use the soap as you were told. If you smoke, stop or cut down. Ask your doctor about ways to quit. Do not shave near where you will have surgery. Shaving can irritate the skin and make it easier to get and infection. After surgery: Be sure that the doctors and nurses clean their hands before and after touching you. Be sure your family and friends clean their hands before and after visiting you. Do not be afraid to remind them. * Care for your wound at home as told by your doctor or nurse * Call your doctor right away if you have fever, redness, increased pain, or drainage at the surgery site. Further questions? Contact the doctor, nurse or the Infection Prevention and Control department if you have any questions. PATIENT RIGHTS AND RESPONSIBILITIES As a patient at [facility], you have the right to: Receive medical care and be informed of who is taking care of you Be treated with dignity and respect Have a family member/service center representative of choice and your physician notified of your admission Receive information and actively participate in decisions about your care and treatment Refuse care, treatment and services Decide who may provide your support and speak for you Access latter day and spiritual services Participate in ethical issues and questions about your care Receive private and confidential care Have appropriate assessment and management of your pain Know guest visitation restrictions or limitations Have an advance directive Access protective services Consent or refuse to participate in research studies or production or recordings, films or other images Have resolution of your complaints Receive information of hospital charges and payment methods Patient/patient service center representative responsibilities are to: Provide information about health status to facilitate care, treatment and services Follow the treatment, plan, keep appointments and speak up when you do not understand the plan Respect the rights of other patients and healthcare personnel Follow organizational rules and regulations that support quality care and a safe environment Fulfill financial obligations as promptly as possible Bathing Before Surgery- Patients greater than 2 months of age You can help to lower your chance of infection at the site of your surgery by showering or bathing with a special soap called chlorhexidine gluconate (CHG). Germs live on your skin. This special soap will help lower the amount of germs so they do not get into your surgery site. Special points to know: Do not use this soap if you know that you are allergic to CHG. Shower or bathe with CHG the night before and the morning of surgery. Do not shave the area of your body where the surgery will be done within 7 days of surgery. The CHG may make your skin a little dry, but do not use lotion. Steps for Bathing: Wash your hair as usual with your normal shampoo. Rinse your hair and body well after you shampoo to get rid all of the shampoo. Wash gently with the CHG from the neck down, but do not scrub the skin to hard. Be sure to wash the area of your surgery very well. If showering, turn the water off while washing and then turn the water back onto rinse. Do not get CHG in the genital (private) area. Do not get CHG in the eyes, ears, nose or mouth. (If the soap gets into the eyes, flush them immediately with water). Do not wash with regular soap after CHG is used. Pat skin dry with a soft, clean towel. Patient should sleep in freshly laundered night clothes and report for surgery in clean clothes. documented in this encounter [facility] 03-27-2024 History of Present illness Narrative Subjective: Patient is here today for her final preoperative visit. she has completed the preoperative MNT and psychological evaluation. All clearances have been reviewed. They have shown compliance throughout the process. Planned procedure: RYGB Physical Exam: BP 131/84 (BP Site: Left Arm, BP Postition: Sitting, BP CUFF SIZE: L (13-17 inches)) Pulse 76 Resp 16 Ht 157.5 cm (5' 2.01 ) Wt (!) 162.3 kg (357 lb 12.8 oz) BMI 65.43 kg/m Constitutional Appears well-developed and well-nourished. Eyes Pupils are equal, round, and reactive to light. Cardiovascular: Normal rate, regular rhythm and normal heart sounds. Pulmonary/Chest Effort normal. Skin Skin is warm. Psychiatric normal mood and affect. Assessment: Morbid obesity with BMI of 65 Need for postoperative DVT prophylaxis: no Plan: We did discuss her procedure in detail today and all questions were answered. ERAS protocol was discussed Prescription for preoperative scopolamine was given today Return for one week post operative visit [facility] History of Present illness Narrative Shira Jett Date of visit: 03/17/2024 Date of : 1995 Age: 28 y.o. Patient Active Problem List Diagnosis Preeclampsia, severe Asthma Gestational diabetes History of pulmonary embolism Family history of thrombosis LUCIANO on CPAP Allergies Allergen Reactions Sumatriptan Anaphylaxis and Other (See Comments) IMITREX FOR MIGRAINES Current Outpatient Medications Medication Sig Dispense Refill albuterol (PROVENTIL HFA;VENTOLIN HFA) 90 mcg/actuation inhaler Inhale 2 puffs every 4 (four) hours as needed for wheezing. 18 g 0 buspirone HCl (BUSPIRONE ORAL) Take 50 mg by mouth in the morning and 50 mg before bedtime. citalopram (CeleXA) 20 mg tablet Take 1 tablet (20 mg total) by mouth in the morning. lisinopriL (PRINIVIL,ZESTRIL) 20 mg tablet Take 0.5 tablets (10 mg total) by mouth in the morning. omeprazole (PriLOSEC) 20 mg capsule Take 1 capsule (20 mg total) by mouth every morning before breakfast. No current facility-administered medications for this visit. Chief Complaint Patient presents with Pre-op Exam Preop Bariatric surg Dr. Shirley History of Present Illness Very pleasant 28-year-old with medicines controlled hypertension in need of gastric bypass surgery. 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 She is good metabolic activity level above 4 Mets with no problems Past Medical History: Diagnosis Date ADHD (attention deficit hyperactivity disorder) Allergic Anemia Anxiety Asthma Back pain Depression GERD (gastroesophageal reflux disease) Gestational diabetes 12/09/2018 Heartburn Irregular heart beat Menstrual flow excessive Migraine Muscle pain Obesity Obstructive sleep apnea Pneumonia Preeclampsia, severe 11/23/2018 Pulmonary embolism ([facility]) Shortness of breath No data recorded No data recorded No data recorded History reviewed. No pertinent surgical history. Family History Problem Relation Age of Onset Diabetes Mother Hypertension Mother Anemia Mother Diabetes Father Hypertension Father Arthritis Father Depression Father Clotting disorder Father COPD Father Mental illness Father defects Maternal Grandfather Diabetes Paternal Grandmother Asthma Paternal Grandmother Breast cancer Paternal Grandmother defects Paternal Grandfather Diabetes Paternal Grandfather Breast cancer Maternal Grandmother Diabetes Maternal Grandmother Ovarian cancer Maternal Grandmother Social History Socioeconomic History Marital status: Single Spouse name: Not on file Number of children: Not on file Years of education: Not on file Highest education level: Not on file Occupational History Not on file Tobacco Use Smoking status: Never Smokeless tobacco: Never Vaping Use Vaping status: Never Used Substance and Sexual Activity Alcohol use: Not Currently Comment: social Drug use: No Sexual activity: Yes Partners: Female control/protection: Abstinence, Condom, None Other Topics Concern Caffeine Use Yes Social History Narrative Not on file Social Determinants of Health Financial Resource Strain: Low Risk (11/29/2021) Received from [facility] Overall Financial Resource Strain (CARDIA) Difficulty of Paying Living Expenses: Not hard at all Food Insecurity: No Food Insecurity (03/17/2024) Hunger Screening Food Insecurity - Worry: Never True Food Insecurity - Inability: Never True Transportation Needs: Not on file Physical Activity: Not on file Stress: Not on file Social Connections: Not on file Interpersonal Safety: Not on file Housing Instability: Not on file Review of Systems Review of Systems Constitutional: Negative. HENT: Negative. Eyes: Negative. Respiratory: Negative. Hematologic/Lymphatic: Negative. Skin: Negative. Musculoskeletal: Negative. Gastrointestinal: Negative. Neurological: Negative. Psychiatric/Behavioral: Positive for depression. The patient is nervous/anxious. Allergic/Immunologic: Positive for environmental allergies. CARDIOVASCULAR: Please review HPI. Physical Examination General appearance: Alert, oriented and cooperative. In no acute distress. Skin: Warm and dry to touch. Head: Normocephalic, without obvious abnormality, atraumatic. Ears, Nose, Mouth, Throat: Throat clear without erythema or exudate. Dentition intact. Eyes: Conjunctivae unremarkable, EOM intact. Neck: No JVD, No carotid bruit. Neck supple, trachea midline. Respiratory: Clear to auscultation bilaterally, no use of accessory muscles. Cardiovascular: RRR with normal S1 and S2 with no murmurs. Gastrointestinal: Soft, non-tender. Bowel sounds normal. Musculoskeletal: No peripheral edema. Neurologic: Oriented to time, person and place, affect appropriate. No focal/major motor defects noted. Psychiatric: Appropriate mood, memory and judgement. VITAL SIGNS: BP 130/80 (BP Site: Left Arm, BP Postition: Sitting) Pulse 80 Ht 157.5 cm (5' 2 ) Wt (!) 166 kg (366 lb) SpO2 97% BMI 66.94 kg/m No orders of the defined types were placed in this encounter. There are no discontinued medications. IMPRESSIONS/PLAN 1. Preop cardiovascular exam - POCT EKG 1. Low cardiovascular risk for anticipated gastric bypass surgery the patient can achieve above 4 Mets with no issues. Her ECG shows no significant changes TODAYS ORDERS Orders Placed This Encounter Procedures POCT EKG FOLLOW UP No follow-ups on file. PCP: Riddhi Plata MD Referring Physician: Riddhi Plata MD [address] [place] [address] documented in this encounter [facility] 03-12-2024 Miscellaneous Notes Called patient to remind them to bring their most current copy of their medication list with them to their appt. Patient verbalizes understanding. documented in this encounter [facility] 03-12-2024 Telephone encounter Note Called patient to remind them to bring their most current copy of their medication list with them to their appt. Patient verbalizes understanding. [facility] 03-06-2024 History of Present illness Narrative Bariatric Medical Nutrition Therapy Nutritional Assessment/Education Session #: 12 Shira Jett is a 28 y.o. female who presents for follow up medical nutritional therapy for weight loss surgery. Weight Change 03/06/2024 Weight: (!) 164.2 kg (362 lb) Weight Change: down 3 pounds in 1 month Diet Recall: Breakfast Snack Lunch Snack Dinner Snack Scrambled eggs with cheese and yogurt parfait: light vanilla yogurt, strawberries and protein granola Protein shake Taco Wright: Rice and crowder burrito Beverage Intake: water Physical Activity: lifting and walking with working 20 hours per week Shira has been focusing her meals on protein. Discussed healthier choices at [email or web address]. Bariatric Medical Nutrition Therapy Goal Summary Eat 4-5 meals per day. No night time snacking.: 75% of the time Avoid all sugars, sweets, desserts, and sugared beverages.: 75% of the time Eat fewer fried foods, limit fats added to foods, and avoid high-fat fast foods.: 75% of the time Eat protein-rich food at each meal.: 75% of the time Take a multi-vitamin/mineral supplement daily.: never (Ran out but will get more Flinstone's vitamins) Sip liquids. Drink 64 ounces/day.: 100% of the time Eliminate drinks with sugar, carbonation, caffeine and alcohol.: 100% of the time Eat meals very slowly (appr 30 mins per meal). Stop eating when full.: 75% of the time Take small bites. Chew foods well.: 75% of the time Avoid emotional eating/mindless eating.: 75% of the time Exercise 3 - 5 times per week by: 75% of the time Nutrition Diagnosis: Obesity as evidenced by BMI. Body mass index is 66.21 kg/m . Nutrition Intervention: Nutrition education Discussed diet and behavioral changes needed to be successful with weight loss surgery. Pt is to continue to work towards making medical nutrition therapy goals part of daily habits prior to surgery. 1) Eat 4-5 meals per day. No night time snacking. 2) Avoid all sugars, sweets and desserts. Read food labels and avoid foods/beverages with > 5 grams sugar per serving. 3) Eat fewer fried foods, limit fats added to foods, and avoid high fat fast foods. Read food labels for foods < 3 grams fat per serving. 4) Eat protein-rich food at each meal followed by vegetables, then fruit, while limiting starches. 5) Take a multivitamin/mineral supplement daily. 6) Sip 64 ounces of liquids between meals. 7) Eliminate drinks with sugar, alcohol, caffeine and carbonation. 8) Eat meals very slowly, approximately 30 minutes per meal. Stop eating when feel full. 9) Take small bites. Chew foods well. 10) Avoid emotional eating / mindless eating. 11) Exercise 3 times per week. Written information on all discussed has been provided within the [facility] Bariatric Guide. My contact name and number provided if questions or concerns arise. Nutrition Monitoring: To follow up in 1 month to show progress towards goals. Start time: 1316 End time: 1329 documented in this encounter [facility] 03-06-[address] - 03/06/2024 1:30 PM EDT Read the [facility] Bariatric Guide. If you re looking for general health and wellness resources, please visit [email or web address]. [facility] History of Present illness Narrative Bariatric Medical Nutrition Therapy Nutritional Assessment/Education Session #: 11 Shira Jett is a 28 y.o. female who presents for follow up medical nutritional therapy for weight loss surgery. Weight Change 02/07/2024 Weight: (!) 165.6 kg (365 lb) Weight Change: up 4.6 pounds in the last month, up 29.2 pounds in the last 11 months Shira feels her activity increased this month with extra walking with fun activities. She hasn't been feeling well so may skip meals with an upset stomach. She is limiting starches to dinner meal only. Diet Recall: Breakfast Snack Lunch Snack Dinner Snack Skipped as not feeling well Grilled chicken with cucumber salad Cheesy chicken baked with rice and peppers Beverage Intake: water, smaller amount of coffee with creamer every 3 days, Physical Activity: walking the zoo, went to [place] for vacation and walked at the [facility] trips and active with work Bariatric Medical Nutrition Therapy Goal Summary Eat 4-5 meals per day. No night time snacking.: 50% of the time Avoid all sugars, sweets, desserts, and sugared beverages.: 75% of the time Eat fewer fried foods, limit fats added to foods, and avoid high-fat fast foods.: 75% of the time Eat protein-rich food at each meal.: 75% of the time Take a multi-vitamin/mineral supplement daily.: 100% of the time (Taking Flinstone's with Iron supplements) Sip liquids. Drink 64 ounces/day.: 100% of the time Eliminate drinks with sugar, carbonation, caffeine and alcohol.: 75% of the time Eat meals very slowly (appr 30 mins per meal). Stop eating when full.: 75% of the time Take small bites. Chew foods well.: 75% of the time Avoid emotional eating/mindless eating.: 75% of the time Exercise 3 - 5 times per week by: 75% of the time Nutrition Diagnosis: Obesity as evidenced by BMI. Body mass index is 66.76 kg/m . Nutrition Intervention: Nutrition education Discussed diet and behavioral changes needed to be successful with weight loss surgery. Pt is to continue to work towards making medical nutrition therapy goals part of daily habits prior to surgery. 1) Eat 4-5 meals per day. No night time snacking. 2) Avoid all sugars, sweets and desserts. Read food labels and avoid foods/beverages with > 5 grams sugar per serving. 3) Eat fewer fried foods, limit fats added to foods, and avoid high fat fast foods. Read food labels for foods < 3 grams fat per serving. 4) Eat protein-rich food at each meal followed by vegetables, then fruit, while limiting starches. 5) Take a multivitamin/mineral supplement daily. 6) Sip 64 ounces of liquids between meals. 7) Eliminate drinks with sugar, alcohol, caffeine and carbonation. 8) Eat meals very slowly, approximately 30 minutes per meal. Stop eating when feel full. 9) Take small bites. Chew foods well. 10) Avoid emotional eating / mindless eating. 11) Exercise 3 times per week. Written information on all discussed has been provided [facility]. My contact name and number provided if questions or concerns arise. Nutrition Monitoring: To follow up in 1 month to show progress towards goals. Start time: 1330 End time: 1348 documented [facility] this [facility] 02-07-[address] - 02/07/2024 1:30 PM EDT Read the [facility]. If you re looking for general health and wellness resources, please visit [email or web address] documented [facility] this encounter [facility] History of Present illness Narrative Bariatric Medical Nutrition Therapy Nutritional Assessment/Education Session #: 10 Shira Jett is a 28 y.o. female who presents for follow up medical nutritional therapy for weight loss surgery. Weight Change 01/02/2024 Weight: (!) 162.2 kg (357 lb 9.6 oz) Weight Change: down down 2.8 pounds in the last month, but still up 21.8 pounds in the last 10 months of supervised dieting Shira has everything completed to submit off to insurance. Stressed avoiding caloric beverages. Diet Recall: Breakfast Snack Lunch Snack Dinner Snack [place] with cheese and low fat sour cream Clinton cheese and low fat sour cream Clinton cheese and low fat sour cream Beverage Intake: Propel, coffee with creamer, rarely 100% juice Physical Activity: Walking outside + working Bariatric Medical Nutrition Therapy Goal Summary Eat 4-5 meals per day. No night time snacking.: 50% of the time Avoid all sugars, sweets, desserts, and sugared beverages.: 50% of the time Eat fewer fried foods, limit fats added to foods, and avoid high-fat fast foods.: 50% of the time Eat protein-rich food at each meal.: 50% of the time Take a multi-vitamin/mineral supplement daily.: 100% of the time Sip liquids. Drink 64 ounces/day.: 100% of the time Eliminate drinks with sugar, carbonation, caffeine and alcohol.: 75% of the time Eat meals very slowly (appr 30 mins per meal). Stop eating when full.: 75% of the time Take small bites. Chew foods well.: 75% of the time Avoid emotional eating/mindless eating.: 75% of the time Exercise 3 - 5 times per week by: 75% of the time Nutrition Diagnosis: Obesity as evidenced by BMI. Body mass index is 65.41 kg/m . Nutrition Intervention: Nutrition education Discussed diet and behavioral changes needed to be successful with weight loss surgery. Pt is to continue to work towards making medical nutrition therapy goals part of daily habits prior to surgery. 1) Eat 4-5 meals per day. No night time snacking. 2) Avoid all sugars, sweets and desserts. Read food labels and avoid foods/beverages with > 5 grams sugar per serving. 3) Eat fewer fried foods, limit fats added to foods, and avoid high fat fast foods. Read food labels for foods < 3 grams fat per serving. 4) Eat protein-rich food at each meal followed by vegetables, then fruit, while limiting starches. 5) Take a multivitamin/mineral supplement daily. 6) Sip 64 ounces of liquids between meals. 7) Eliminate drinks with sugar, alcohol, caffeine and carbonation. 8) Eat meals very slowly, approximately 30 minutes per meal. Stop eating when feel full. 9) Take small bites. Chew foods well. 10) Avoid emotional eating / mindless eating. 11) Exercise 3 times per week. Written information on all discussed has been provided within the [facility] Bariatric Guide. My contact name and number provided if questions or concerns arise. Nutrition Monitoring: To follow up in 1 month to show progress towards goals. Start time: 1208 End time: 1219 documented in this encounter [facility] 01-02-[address] - 01/02/2024 12:30 PM EDT Read the [facility] Bariatric Guide. If you re looking for general health and wellness resources, please visit [email or web address]. documented in this encounter [facility] 12-05-2023 History of Present illness Narrative Patient visited the [facility] and received food on 12/05/23. Provided one time food bag today. Patient needs a referral. Aby Davey [facility] documented in this encounter [facility] 12-05-2023 History of Present illness Narrative Bariatric Medical Nutrition Therapy Nutritional Assessment/Education Session #: 9 Shira Jett is a 28 y.o. female who presents for follow up medical nutritional therapy for weight loss surgery. Weight Change 12/05/2023 Weight: (!) 163.5 kg (360 lb 6.4 oz) Weight Change: up 1.4 pounds in 1 month Shira's lost his job, so she started working with [employer]. She finds this has really increased her daily activity. She is drinking just water. But with lack of funds she has been using up foods in her house. She has applied for food stamps and hopes to get that soon. She has not tried food vega as the ones in her area only give starches. Discussed [facility]. Bariatric Medical Nutrition Therapy Goal Summary Eat 4-5 meals per day. No night time snacking.: 50% of the time Avoid all sugars, sweets, desserts, and sugared beverages.: 50% of the time Eat fewer fried foods, limit fats added to foods, and avoid high-fat fast foods.: 50% of the time Eat protein-rich food at each meal.: 50% of the time Take a multi-vitamin/mineral supplement daily.: 100% of the time Sip liquids. Drink 64 ounces/day.: 100% of the time Eliminate drinks with sugar, carbonation, caffeine and alcohol.: 75% of the time Eat meals very slowly (appr 30 mins per meal). Stop eating when full.: 75% of the time Take small bites. Chew foods well.: 75% of the time Avoid emotional eating/mindless eating.: 75% of the time Exercise 3 - 5 times per week by: 75% of the time Nutrition Diagnosis: Obesity as evidenced by BMI. Body mass index is 65.92 kg/m . Nutrition Intervention: Nutrition education Discussed diet and behavioral changes needed to be successful with weight loss surgery. Pt is to continue to work towards making medical nutrition therapy goals part of daily habits prior to surgery. 1) Eat 4-5 meals per day. No night time snacking. 2) Avoid all sugars, sweets and desserts. Read food labels and avoid foods/beverages with > 5 grams sugar per serving. 3) Eat fewer fried foods, limit fats added to foods, and avoid high fat fast foods. Read food labels for foods < 3 grams fat per serving. 4) Eat protein-rich food at each meal followed by vegetables, then fruit, while limiting starches. 5) Take a multivitamin/mineral supplement daily. 6) Sip 64 ounces of liquids between meals. 7) Eliminate drinks with sugar, alcohol, caffeine and carbonation. 8) Eat meals very slowly, approximately 30 minutes per meal. Stop eating when feel full. 9) Take small bites. Chew foods well. 10) Avoid emotional eating / mindless eating. 11) Exercise 3 times per week. Written information on all discussed has been provided within the [facility] Bariatric Guide. My contact name and number provided if questions or concerns arise. Nutrition Monitoring: To follow up in 1 month to show progress towards goals. Start time: 1332 End time: 1355 documented in this encounter [facility] 12-05-[address] - 12/05/2023 1:30 PM EDT Read the [facility] Bariatric Guide. If you re looking for general health and wellness resources, please visit [email or web address]. documented [facility] this encounter [facility] History of Present illness Narrative Bariatric Medical Nutrition Therapy Nutritional Assessment/Education Session #: 8 Shira Jett is a 28 y.o. female who presents for follow up medical nutritional therapy for weight loss surgery. Weight Change 11/08/2023 Weight: (!) 162.8 kg (359 lb) Weight Change: up 2.4 pounds in one month Shira is walking with a friend 1-2 times a week. She is drinking propel, crystal light, and coffee with creamer. Discussed switching to zero sugar creamer. She is eating protein with each meal. Discussed adding fruit to yogurt instead of having the Chobani flips. Diet Recall: Breakfast Snack Lunch Snack Dinner Snack 2 boiled eggs, grapes, yogurt (Chobani flip) Chicken stir chacon (birds eye) wright peppers, pineapple, and rice Pot roast with green beans and pepperoncini peppers Beverage Intake: Propel, crystal light, coffee with creamer, Physical Activity: walk with friend 1-2 days a week Bariatric Medical Nutrition Therapy Goal Summary Eat 4-5 meals per day. No night time snacking.: 75% of the time Avoid all sugars, sweets, desserts, and sugared beverages.: 100% of the time Eat fewer fried foods, limit fats added to foods, and avoid high-fat fast foods.: 100% of the time Eat protein-rich food at each meal.: 100% of the time Take a multi-vitamin/mineral supplement daily.: 100% of the time Sip liquids. Drink 64 ounces/day.: 100% of the time Eliminate drinks with sugar, carbonation, caffeine and alcohol.: 75% of the time Eat meals very slowly (appr 30 mins per meal). Stop eating when full.: 75% of the time Take small bites. Chew foods well.: 75% of the time Avoid emotional eating/mindless eating.: 100% of the time Exercise 3 - 5 times per week by: 50% of the time Nutrition Diagnosis: Obesity as evidenced by BMI. Body mass index is 65.66 kg/m . Nutrition Intervention: Nutrition education Discussed diet and behavioral changes needed to be successful with weight loss surgery. Pt is to continue to work towards making medical nutrition therapy goals part of daily habits prior to surgery. 1) Eat 4-5 meals per day. No night time snacking. 2) Avoid all sugars, sweets and desserts. Read food labels and avoid foods/beverages with > 5 grams sugar per serving. 3) Eat fewer fried foods, limit fats added to foods, and avoid high fat fast foods. Read food labels for foods < 3 grams fat per serving. 4) Eat protein-rich food at each meal followed by vegetables, then fruit, while limiting starches. 5) Take a multivitamin/mineral supplement daily. 6) Sip 64 ounces of liquids between meals. 7) Eliminate drinks with sugar, alcohol, caffeine and carbonation. 8) Eat meals very slowly, approximately 30 minutes per meal. Stop eating when feel full. 9) Take small bites. Chew foods well. 10) Avoid emotional eating / mindless eating. 11) Exercise 3 times per week. Written information on all discussed has been provided within the [facility] Bariatric Guide. My contact name and number provided if questions or concerns arise. Nutrition Monitoring: To follow up in 1 month to show progress towards goals. Start time: 1122 End time: 1138 documented in this encounter [facility] [employer] [facility] 11-08-[address] - 11/08/2023 11:30 AM EST Read the [facility] Bariatric Guide. If you re looking for general health and wellness resources, please visit [email or web address]. documented in this encounter [facility] 10-26-2023 Evaluation note Diagnosis PONV (postoperative nausea and vomiting)- Primary Nausea with vomiting Unable to assess patient's smoking status within the last 12 months Constipation, unspecified constipation type Vitamin D deficiency Chronic RUQ pain Abdominal pain, right upper quadrant documented in this encounter [facility]2024 History of Present illness Narrative* Theodora Early MD - 10/10/2023 8:15 AM EST Shira Souza Johnie Date of visit: 10/10/2023 Date of : 1995 Age: 28 y.o. Patient Active Problem List Diagnosis Preeclampsia, severe Asthma Gestational diabetes History of pulmonary embolism Family history of thrombosis LUCIANO on CPAP Allergies Allergen Reactions Sumatriptan Anaphylaxis and Other (See Comments) IMITREX FOR MIGRAINES Current Outpatient Medications Medication Sig Dispense Refill albuterol (PROVENTIL HFA;VENTOLIN HFA) 90 mcg/actuation inhaler Inhale 2 puffs every 4 (four) hoursas needed for wheezing. 18 g 0 buspirone HCl (BUSPIRONE ORAL) Take 50 mg by mouth in the morning and 50 mg before bedtime. citalopram (CeleXA) 20 mg tablet Take 1 tablet (20 mg total) by mouth in the morning. lisinopriL (PRINIVIL,ZESTRIL) 20 mg tablet Take 0.5 tablets (10 mg total) by mouth in the morning. omeprazole (PriLOSEC) 20 mg capsule Take 1 capsule (20 mg total) by mouth every morning before breakfast. No current facility-administered medications for this visit. 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 She has past medical history of morbid obesity, obstructive sleep apnea on CPAP, hypertension, history of pulmonary embolism. She had PE back in 2018 took oral anticoagulation for 6 months. She is on lisinopril for hypertension. Last year had echocardiogram in June that showed preserved ejection fraction with no significantvalvular disease She also had a Holter monitor placed for palpitation which showed normal sinus rhythm with PACs. She says after CPAP her symptoms have improved significantly she has mild shortness of breath with activity. However her blood pressure has improved. She reports no chest pain palpitations or syncope. She is getting prepared for gastric bypass surgery. This is not been scheduled yet. EKG in the office showed normal sinus rhythm. Past Medical History: Diagnosis Date ADHD (attention deficit hyperactivity disorder) Allergic Anemia Anxiety Asthma Back pain Depression GERD (gastroesophageal reflux disease) Gestational diabetes 12/09/2018 Heartburn Irregular heart beat Menstrual flow excessive Migraine Muscle pain Obesity Obstructive sleep apnea Pneumonia Preeclampsia, severe 11/23/2018 Pulmonary embolism ([facility]) Shortness of breath No data recorded No data recorded No data recorded History reviewed. No pertinent surgical history. Family History Problem Relation Age of Onset Diabetes Mother Hypertension Mother Anemia Mother Diabetes Father Hypertension Father Arthritis Father Depression Father Clotting disorder Father COPD Father Mental illness Father defects Maternal Grandfather Diabetes Paternal Grandmother Asthma Paternal Grandmother Breast cancer Paternal Grandmother defects Paternal Grandfather Diabetes Paternal Grandfather Breast cancer Maternal Grandmother Diabetes Maternal Grandmother Ovarian cancer Maternal Grandmother Social History Socioeconomic History Marital status: Single Spouse name: Not on file Number of children: Not on file Years of education: Not on file Highest education level: Not on file Occupational History Not on file Tobacco Use Smoking status: Never Smokeless tobacco: Never Vaping Use Vaping Use: Never used Substance and Sexual Activity Alcohol use: Not Currently Comment: social Drug use: No Sexual activity: Yes Partners: Female control/protection: Abstinence, Condom, None Other Topics Concern Caffeine Use Yes Social History Narrative Not on file Social Determinants of Health Financial Resource Strain: Not on file Food Insecurity: No Food Insecurity (10/10/2023) Hunger Screening Food Insecurity - Worry: Never True Food Insecurity - Inability: Never True Transportation Needs: Not on file Physical Activity: Not on file Stress: Not on file Social Connections: Not on file Interpersonal Safety: Not on file Housing Instability: Not on file Review of Systems Review of Systems Psychiatric/Behavioral: Positive for depression. The patient is nervous/anxious. Allergic/Immunologic: Positive for environmental allergies. CARDIOVASCULAR: Please review HPI. Physical Examination General appearance: Alert, oriented and cooperative. In no acute distress. Skin: Warm and dry to touch. Head: Normocephalic, without obvious abnormality, atraumatic. Ears, Nose, Mouth, Throat: Throat clear without erythema or exudate. Dentition intact. Eyes: Conjunctivae unremarkable, EOM intact. Neck: No JVD, No carotid bruit. Neck supple, trachea midline. Respiratory: Clear to auscultation bilaterally, no use of accessory muscles. Cardiovascular: RRR with normal S1 and S2 with no murmurs. Gastrointestinal: Soft, non-tender. Bowel sounds normal. Musculoskeletal: No peripheral edema. Neurologic: Oriented to time, person and place, affect appropriate. No focal/major motor defects noted. Psychiatric: Appropriate mood, memory and judgement. VITAL SIGNS: Ht 154.9 cm (5' 1 ) Wt (!) 164.2 kg (362 lb) BMI 68.40 kg/m No orders of the defined types were placed in this encounter. There are no discontinued medications. IMPRESSIONS/PLAN Preoperative cardiovascular risk assessment She is planned for gastric bypass surgery. Echo on 07/05/2023 showed preserved ejection fraction. Holter monitor on 11/16/2022 showed normal sinus rhythm with occasional PACs remote history of PE forwhich she took oral anticoagulation blood pressure is very well controlled. She is ambulating without any active cardiac symptoms. She should be okay to proceed with gastric bariatric surgery at moderate risk for periprocedure cardiovascular complication. This was discussed with the patient. EKG inthe office showed normal sinus rhythm. 2. Hypertension Continue lisinopril 3. Obstructive sleep apnea TODAYS ORDERS Orders Placed This Encounter Procedures POCT EKG FOLLOW UP No follow-ups on file. PCP: Riddhi Plata MD Referring Physician: Tonia Manzo MD [address] [place] [address] documented [address] History of Present illness Narrative* Les Diane RD - 10/09/2023 11:00 AM EST Bariatric Medical Nutrition Therapy Nutritional Assessment/Education Session #: 7 Shira Jett is a 28 y.o. female who presents for follow up medical nutritional therapy for weight loss surgery. Weight Change 10/09/2023 Weight: (!) 161.8 kg (356 lb 9.6 oz) Weight Change: up 1.1 pounds in one month Shira insurance lapsed and is in the process of getting it reinstated, will get requirements after reinstated. She is eating protein with each meal and discussed ways to make diet lower in fat. Diet Recall:Awake 7:00 am Breakfast 8:00 am Snack Lunch 12:30 pm Snack Dinner Snack Eggs with raspberries Air fried frozen breaded fish, tater tots, Hard boiled egg Tacos, with lettuce, cheese, sour cream, ground beef, and hard shells Beverage Intake: Powerade zero sugar, crystal light, 1 cup of coffee with creamer. Physical Activity: chasing two children Bariatric Medical Nutrition Therapy Goal Summary Eat 4-5 meals per day. No night time snacking.: 75% of the time Avoid all sugars, sweets, desserts, and sugared beverages.: 75% of the time Eat fewer fried foods, limit fats added to foods, and avoid high-fat fast foods.: 50% of the time Eat protein-rich food at each meal.: 100% of the time Take a multi-vitamin/mineral supplement daily.: 100% of the time Sip liquids. Drink 64 ounces/day.: 75% of the time Eliminate drinks with sugar, carbonation, caffeine and alcohol.: 75% of the time Eat meals very slowly (appr 30 mins per meal). Stop eating when full.: 75% of the time Take small bites. Chew foods well.: 75% of the time Avoid emotional eating/mindless eating.: 75% of the time Exercise 3 - 5 times per week by: 50% of the time Nutrition Diagnosis: Obesity as evidenced by BMI. Body mass index is 67.38 kg/m . Nutrition Intervention: Nutrition education Discussed diet and behavioral changes needed to be successful with weight loss surgery. Pt is to continue to work towards making medical nutrition therapy goals part of daily habits prior to surgery. 1) Eat 4-5 meals per day. No night time snacking. 2) Avoid all sugars, sweets and desserts. Read food labels and avoid foods/beverages with > 5 grams sugar per serving. 3) Eat fewer fried foods, limit fats added to foods, and avoid high fat fast foods. Read food labels for foods < 3 grams fat per serving. 4) Eat protein-rich food at each meal followed by vegetables, then fruit, while limiting starches. 5) Take a multivitamin/mineral supplement daily. 6) Sip 64 ounces of liquids between meals. 7) Eliminate drinks with sugar, alcohol, caffeine and carbonation. 8) Eat meals very slowly, approximately 30 minutes per meal. Stop eating when feel full. 9) Take small bites. Chew foods well. 10) Avoid emotional eating / mindless eating. 11) Exercise 3 times per week. Written information on all discussed has been provided within the [facility] Bariatric Guide. My contact name and number provided if questions or concerns arise. Nutrition Monitoring: To follow up in 1 month to show progress towards goals. Start time: 1045 End time: 1108 documented [address] [facility]24 Instructions* Patient Instructions* Les Diane RD - 10/09/2023 11:00 AM EST Read the [facility] Bariatric Guide. If you re looking for general health and wellness resources, please visit [email or web address]. documented in this encounterMount [facility]. [facility]01-[facility]-2024 Miscellaneous Notes* Telephone Encounter - Anne Ruiz CMA - 10/09/2023 10:27 AM EST Called patient to remind them to bring their most current copy of their medication list with them to their appt. Patient verbalizes understanding. documented in this encounter[facility]24 Telephone encounter Note* Telephone Encounter - Anne Ruiz CMA - 10/09/2023 10:27 AM EST Called patient to remind them to bring their most current copy of their medication list with them to their appt. Patient verbalizes understanding. [facility] [employer] [id number] History of Present illness Narrative* NEIL Mcgowan - 09/27/2023 11:45 AM EST Images from the original note were not included. * Jalyn Vidal DO - 09/27/2023 11:45 AM EST [facility] Progress Note [facility] - [facility] Jett Age - 28 [facility] 1995 [id number] ASSESSMENT Mild intermittent asthma, well controlled LUCIANO on CPAP History of pulmonary emboli, considered provoked. November 2021 -s/p hypercoagulable work up with hematology. Completed 6 months xarelto Seasonal allergies Adiposity with plans for upcoming bariatric surgery PLAN Continue p.r.n. rescue albuterol CPAP download reviewed. Encouraged ongoing excellent adherence Patient was given sample of alternative head gear to assess for better fit Ongoing daily exercise program, dietary efforts for goal of weight loss Return to clinic in 1 year earlier if needed SUBJECTIVE Shira presents for follow-up after her sleep study testing. She was a new patient at last office visit in May where she was pursuing surgical clearance for upcoming anticipated bariatric surgery. She is history of asthma which has not been bothered. She has not had any needs for her rescue albuterol inhaler since prior to last office visit. She did express some concerns related to her sleepwith increased sleep symptoms. She underwent home sleep study which was diagnostic of obstructive sleep apnea and she has since been started on auto CPAP with min pressure 5 max pressure 20. Downloadis reviewed today and demonstrates excellent adherence of the past 90 days with nearly 100% compliance of days used greater than 4 hours. Corrected AHI is well controlled less than 2. She states thatshe feels great on her CPAP. She sleeps much more soundly and wakes up feeling refreshed. She no longer dozes off during the day. She is really pleased with her CPAP machine. She does have some issues with the head gear feeling somewhat too large and she can not tightness any further. It is slidingoff of her head in the middle of the night. VITALS BP 144/89 Pulse 68 Ht 154.9 cm (5' 1 ) Wt (!) 162.9 kg (359 lb 1.6 oz) SpO2 98% BMI 67.85kg/m Exam General: Alert, oriented, no acute distress, nontoxic Chest: Clear to auscultation bilaterally without any crackles, wheezes, rhonchi. Normal AP diameter. CV: Regular rate regular rhythm Extremities: No distal cyanosis, clubbing Integumentary: Warm and dry. No rash or lesion Neuro: No lateralizing deficits. No tremors Meds Medications Reviewed. Dr. Jalyn Vidal DO. [facility] Office: [phone] [address] [facility]12-28-2023 History of Present illness Narrative* Les Diane, MICHAEL - 09/06/2023 11:00 AM EST Bariatric Medical Nutrition Therapy Nutritional Assessment/Education Session #: 6 Shira Jett is a 28 y.o. female who presents for follow up medical nutritional therapy for weight loss surgery. Weight Change 09/06/2023 Weight: (!) 161.3 kg (355 lb 8 oz) Weight Change: up 2.4 pounds in 1 month Diet Recall: Breakfast Snack Lunch Snack Dinner Snack Cheese eggs, sausage and low carb toast Beef stick [employer]: wings and fries Beverage Intake: crystal light, Cirkul Physical Activity: walking with shopping almost daily, walked the zoo 1x Discussed ways to make her diet healthier: using turkey sausage instead of pork sausage, avoiding fried foods with eating out and increasing vegetable intake. Bariatric Medical Nutrition Therapy Goal Summary Eat 4-5 meals per day. No night time snacking.: 75% of the time Avoid all sugars, sweets, desserts, and sugared beverages.: 75% of the time Eat fewer fried foods, limit fats added to foods, and avoid high-fat fast foods.: 50% of the time Eat protein-rich food at each meal.: 75% of the time Take a multi-vitamin/mineral supplement daily.: 100% of the time Sip liquids. Drink 64 ounces/day.: 75% of the time Eliminate drinks with sugar, carbonation, caffeine and alcohol.: 100% of the time Eat meals very slowly (appr 30 mins per meal). Stop eating when full.: 75% of the time Take small bites. Chew foods well.: 75% of the time Avoid emotional eating/mindless eating.: 75% of the time Exercise 3 - 5 times per week by: 75% of the time Awaiting cardiac clearance, UGI and labs. Nutrition Diagnosis: Obesity as evidenced by BMI. Body mass index is 67.17 kg/m . Nutrition Intervention: Nutrition education Discussed diet and behavioral changes needed to be successful with weight loss surgery. Pt is to continue to work towards making medical nutrition therapy goals part of daily habits prior to surgery. 1) Eat 4-5 meals per day. No night time snacking. 2) Avoid all sugars, sweets and desserts. Read food labels and avoid foods/beverages with > 5 grams sugar per serving. 3) Eat fewer fried foods, limit fats added to foods, and avoid high fat fast foods. Read food labels for foods < 3 grams fat per serving. 4) Eat protein-rich food at each meal followed by vegetables, then fruit, while limiting starches. 5) Take a multivitamin/mineral supplement daily. 6) Sip 64 ounces of liquids between meals. 7) Eliminate drinks with sugar, alcohol, caffeine and carbonation. 8) Eat meals very slowly, approximately 30 minutes per meal. Stop eating when feel full. 9) Take small bites. Chew foods well. 10) Avoid emotional eating / mindless eating. 11) Exercise 3 times per week. Written information on all discussed has been provided within the [facility] Bariatric Guide. My contact name and number provided if questions or concerns arise. Nutrition Monitoring: To follow up in 1 month to show progress towards goals. Start time: 1100 End time: 1119 documented in this [facility] Instructions* Patient Instructions* Les Diane RD - 09/06/2023 11:00 AM EST Read the [facility] Bariatric Guide. If you re looking for general health and wellness resources, please visit [email or web address]. documented in this encounterUC [facility] Hospital[facility]-24-2023 NoteOP Note OPERATION DATE: 11/03/2022 PROCEDURE: Diagnostic laparoscopy with removal of IUD. PREOPERATIVE DIAGNOSIS: Desires permanent sterilization, desires removal of IUD, multiparity. POSTOPERATIVE DIAGNOSIS: Desires permanent sterilization, desires removal of IUD, multiparity. ANESTHESIA: General. SURGEON: Bin Carmen, D.O. PRODUCTION INSPECTOR: TIMOTEO Watson URINE OUTPUT: Yellow and clear. BLOOD LOSS: 5 mL. SPECIMEN: None. FINDINGS: Unable to perform procedure due to patient's extreme BMI and inadequate visualization. PROCEDURE: Patient was taken back to the operating room. She was given general anesthesia without difficulty. She was prepped and draped in the normal sterile fashion, placed in Yellofins. The weighted speculum was placed in patient's vagina. The anterior lip of the cervix identified, grasped with a single tooth tenaculum and the IUD was removed. Attention was then turned to the patient's abdomen where a small infraumbilical incision was made. The blunt port was (sentence not completed). The abdomen was surveyed. The (sounds like S-check but unable to verify) was used to identify the fascia. Fascia was grasped with Christina clamps, tented up and excised sharply. The peritoneum was then entered bluntly. The port was then placed. The camera was inserted confirming placement. The abdomen was insufflated with approximately 4 liters of gas; however, due to unable to put patient in Trendelenburg due to respiratory trouble with ventilation, adequate visualization could not be obtained. At that point, the procedure was aborted. The fascia was closed using 0-Vicryl. This was performed without difficulty. The skin was closed using 4-0 Vicryl. Sponge, lap and needle counts were correct x2. Patient was waken up and taken to recovery.[id number] Discharge instructions* Instructions* Tonia Wolfe PA-C - 12/05/2021 Follow outpatient tomorrow with doctor or by calling [phone] or [phone]. Return to ER immediately if symptoms worsen or persist. * Attachments The following attachments cannot be sent through Care Everywhere. * SOB (Shortness of Breath) (Surinamese) documented in this [facility] Work Phone: [phone]) 331-770803-24-2022 History of Present illness Narrative* Sonu Morales - 12/01/2021 4:13 PM EDT CLINICAL PHARMACY NOTE: MEDS TO BEDS Total # of Prescriptions Filled: 1 The following medications were delivered to the patient: xarelto starter pack Additional Documentation: * Marilee Medina MD - 12/01/2021 8:44 AM EDT Images from the original note were not included. [facility] Office: [phone] Cem Jenkins DO, Cyrus Cannon DO, Dave Roberts DO, Ervin Laguna DO, Checo Metzger MD, Jesusita Magallanes MD, Michael Louis MD, Echo Payan MD, Britni Lau MD, Rui Obrien MD, Francesca Santillan MD, Isidro Cruz DO, Rudi Molina DO, Marilee Medina MD, Bonnie Verdugo DO, MD [place], Rashad Downing MD, Yifan Clements MD, Hamlet Jenkins DO, Suman Mclaughlin MD, Antonio Burr MD, Nevaeh Wisdom CNP, Violet Mojica CNP, Ysabel Steen CNP, Jami Heard, NAVYA, Tiomthy Hill CNP, Tayler Watts CNP, Grecia Chavez CNP, Shira Payne CNP, Sergio Steiner CNP, Alok Reese PA-C, Nilam Valdes DNP, Oriana Montero DNP, Krystina Gil CNP, Georgina Dale CNP, Stacy Velazquez CNP [facility] IN-PATIENT SERVICE [facility] Progress Note 12/01/2021 8:44 AM Name: Shira Leone Acct: [id number] Room: Day: 1 Admit Date: 11/30/2021 7:38 PM PCP: No primary care provider on file. Code Status: Full Code Subjective: C/C: Chief Complaint Patient presents with Chest Pain onset this morning, was admitted for preeclampsia Shortness of Breath Interval History Status: not changed. Patient seen and examined at bedside. No acute issues overnight. Blood pressure overall stable having minimal spotting while on heparin drip while therapeutic. Did discuss with patient about breast-feeding and she states that she has no intention to breast-feed her child. Brief History: 26-year-old female recently delivered at [place] around 11/24/2021 was transferred to [facility] for blood pressure management due to history of eclampsia 11/26/2021 discharged on labetalol 600 mg 4 times a day nifedipine 90 mg daily and was also started on Celexa 10 mg daily. Patient had anappointment with her PCP yesterday in the morning had no issues. Patient presented to the ER later on with new chest pain and pressure underwent CT PE protocol found to have acute PE of distal subsegmental proximal subsegmental branches of the right lower lobe pulmonary artery. Review of Systems: Constitutional: negative for chills, fevers, sweats Respiratory: negative for cough, dyspnea on exertion, shortness of breath, wheezing Cardiovascular: negative for chest pain, chest pressure/discomfort, lower extremity edema, palpitations Gastrointestinal: negative for abdominal pain, constipation, diarrhea, nausea, vomiting Neurological: negative for dizziness, headache Medications: Allergies: Allergies Allergen Reactions Sumatriptan Anaphylaxis IMITREX FOR MIGRAINES Fibrinolysin Current Meds: Scheduled Meds: apixaban 10 mg Oral BID Followed by [START ON 12/08/2021] apixaban 5 mg Oral BID citalopram 10 mg Oral Daily ferrous sulfate 325 mg Oral Daily with breakfast labetalol 600 mg Oral 4x Daily NIFEdipine 90 mg Oral Daily sodium chloride flush 5-40 mL IntraVENous 2 times per day aspirin 325 mg Oral Daily Continuous Infusions: sodium chloride PRN Meds: sodium chloride flush, sodium chloride, ondansetron OR ondansetron, acetaminophen OR acetaminophen, magnesium hydroxide, potassium chloride OR potassium alternative oral replacement OR potassium chloride, magnesium sulfate, nitroGLYCERIN Data: Past Medical History: has a past medical history of Gestational diabetes, pulmonary embolism, Pre-eclampsia in period, and Thyroid nodule. Social History: reports that she is a non-smoker but has been exposed to tobacco smoke. She has never used smokeless tobacco. She reports that she does not drink alcohol and does not use drugs. Family History: Family History Problem Relation Age of Onset Thyroid Disease Mother Pulmonary Embolism Father Hypertension Father Diabetes Father Vitals: BP (!) 96/48 Pulse 64 Temp 98.1 F (36.7 C) (Temporal) Resp 20 Ht 5' 1 (1.549 m) Wt 279 lb (126.6 kg) SpO2 95% BMI 52.72 kg/m Temp (24hrs), Av.8 F (36.6 C), Min:97.4 F (36.3 C), Max:98.1 F (36.7 C) Recent Labs 12/01/21 0414 POCGLU 91 I/O (24Hr): No intake or output data in the 24 hours ending 12/01/21 0844 Labs: Hematology: Recent Labs 11/30/21202012/01/21812/01/21357 WBC 10.2 10.4 10.0 RBC 4.06 3.90* 3.86* HGB 10.8* 10.4* 10.2* HCT 35.0* 33.6* 33.3* MCV 86.2 86.2 86.3 MCH 26.6 26.7 26.4 MCHC 30.9 31.0 30.6 RDW 14.8* 14.8* 14.8* PLT 351 342 314 MPV 9.1 9.1 8.9 INR 1.1 1.3 -- DDIMER 1.73* -- -- Chemistry: Recent Labs 11/30/21202011/30/21202011/30/21220112/01/21812/01/21 0358 NA 134* -- -- -- 137 K 4.0 -- -- -- 4.0 CL 101 -- -- -- 105 CO2 23 -- -- -- 25 GLUCOSE 101* -- -- -- 90 BUN 16 -- -- -- 13 CREATININE 0.55 -- -- -- 0.61 MG 1.9 -- -- -- 1.9 ANIONGAP 10 -- -- -- 7* LABGLOM >60 -- -- -- >60 GFRAA >60 -- -- -- >60 CALCIUM 9.0 -- -- -- 8.5* PROBNP 31 -- -- -- -- TROPHS <6 < > <6 <6 <6 < > = values in this interval not displayed. Recent Labs 11/30/21202012/01/21 0358 12/01/21 0414 PROT 6.9 6.3* -- LABALBU 3.7 3.4* -- TSH -- 2.20 -- AST 15 16 -- ALT 31 28 -- LDH 171 -- -- ALKPHOS 102 93 -- BILITOT 0.21* 0.18* -- URICACID 8.0* -- -- POCGLU -- -- 91 ABG:No results found for: POCPH, PHART, PH, POCPCO2, GZX6TCV, PCO2, POCPO2, PO2ART, PO2, POCHCO3, AME5EYO, HCO3, NBEA, PBEA, BEART, BE, THGBART, THB, EQU8JDD, UGQO0FDK, T8DJDAYC, O2SAT, FIO2 No results found for: SPECIAL No results found for: CULTURE Radiology: XR CHEST PORTABLE Result Date: 11/30/2021 1. Cardiomegaly, without evidence of CHF CT CHEST PULMONARY EMBOLISM W CONTRAST Result Date: 11/30/2021 1. Acute embolus, within a distal segmental and proximal subsegmental branches, right lower lobe pulmonary artery, without evidence of RV strain 2. Cardiomegaly 3. 13 mm thyroid nodule, within the medial portion of the right lobe extending into the isthmus. Recommendation as discussed below 4. Critical results were called by Dr. Ernie Gamino to COMPUTED TOMOGRAPHY TECHNOLOGIST Bandar Vaughan on 11/30/2021 at 10:54 p.m. hours. RECOMMENDATIONS: 1.3 cm incidental right thyroid nodule with heterogeneous and enlarged thyroid. Recommend thyroid US. Reference: J Am Sukhjinder Radiol. 2015 Oct;12(2): 143-50 CT CHEST PULMONARY EMBOLISM W CONTRAST Result Date: 11/26/2021 Motion degraded exam. No evidence for central pulmonary embolism. Probable subsegmental atelectasisin the lung bases. No consolidation. Physical Examination: General appearance: alert, cooperative and no distress Mental Status: oriented to person, place and time and normal affect Lungs: Decreased in bases Heart: regular rate and rhythm, no murmur Abdomen: soft, nontender, nondistended, normal bowel sounds, no masses, hepatomegaly, splenomegaly Extremities: no edema, redness, tenderness in the calves Skin: no gross lesions, rashes, induration Assessment: Hospital Problems Last Modified POA * (Principal) Acute pulmonary embolism (HCC) 11/30/2021 Yes Class 3 severe obesity due to excess calories with serious comorbidity and body mass index (BMI) of50.0 to 59.9 in adult (HCC) 11/30/2021 Yes Thyroid nodule 11/30/2021 Yes Plan: 1. Acute subsegmental PE. Did discuss with patient about treatment options occluding warfarin versus DOAC's did discuss about concerns with breast-feeding and they will ask. Patient tells me that shehas no intention of breast-feeding her child and would like to start Eliquis or xarelto. Did discuss with patient about monitoring bleeding and did discuss about if she continues to bleed that we would have to continue to monitor her. However if she continues to remain stable that she would prefer to go home and follow-up with outpatient laboratory for monitoring her hemoglobin hematocrit and will follow up with her PCP. Patient also endorses that she has a family history of her father having bi lateral DVTs requiring what appears to be a [place] filter in place. Due to insurance patient started on Xarelto 2. Outpatient ultrasound for thyroid nodule 3. Morbid obesity encourage weight loss 4. Discharge planning. Did discuss with patient she has 2 children at home that she wants to take care of. Does have assistance with her mother 5. Outpatient follow-up with hematology 6. Marilee Medina MD 12/01/2021 8:44 AM * Afsaneh Oviedo RN - 12/01/2021 12:00 AM EDT Patient arrived to room 2041. Vitals obtained. Orders released. documented in this [facility] Phone: [phone] 453-473503-24-2022 Hospital Discharge instructions* Discharge Instr - Activity* Stacy Conley RN - 12/01/2021 10:49 AM EDT Activity as Tolerated * Discharge Instr - Diet* Stacy Conley RN - 12/01/2021 1:22 PM EDT Good nutrition is important when healing from an illness, injury, or surgery. Follow any nutrition recommendations given to you during your hospital stay. If you were given an oral nutrition supplement while in the hospital, continue to take this supplement at home. You can take it with meals, in-between meals, and/or before bedtime. These supplements can be purchased at most local grocery stores, pharmacies, and chain videoNEXT-stores. If you have any questions about your diet or nutrition, call the hospital and ask for the dietitian. * Attachments The following attachments cannot be sent through Care Everywhere. * Pulmonary Embolism (Surinamese) * rivaroxaban (Surinamese) * Blood Clots: Inpatient: Quick List (Surinamese) * Blood Clots and : General Info (Surinamese) documented in this [facility] Work Phone: [phone] 371-875003-22-2022 History of Present illness Narrative* Milana Luong - 11/29/2021 11:03 AM EDT CLINICAL PHARMACY NOTE: MEDS TO BEDS Total # of Prescriptions Filled: 3 The following medications were delivered to the patient: Nifedipine er 90 mg tab Citalopram 10 mg tab Labetalol 300 mg tab Additional Documentation:Medications delivered to patients room 702 @ 10:38 am no copays. * Kitty Flores DO - 11/29/2021 2:14 AM EDT POST DAY # 8 Shira Leone is a 26 y.o. female This patient was seen & examined today. Her was complicated by: Patient Active Problem List Diagnosis Hx PP Pre E w/ SF Anemia Depression/Anxiety Hx GDM FHx DM Today she is doing well without any chief complaint. Her lochia is light. She denies chest pain, shortness of breath, headache, lightheadedness, and blurred vision. She is bottle feeding and she denies any breast tenderness. She is ambulating well. Her voiding pattern is normal. I reviewed signs and symptoms of post depression with the patient, she currently denies any of these symptoms. She is tolerating solids. She is feeling much better than she was yesterday. She states that she onlyhas a mild RIZVI here and there. She is less anxious since her blood pressures have been normal. Vital Signs: Vitals: 11/28/21 2101 11/28/21 2201 11/28/21 2301 11/29/21 0001 BP: (!) 144/82 (!) 146/82 138/66 135/68 Pulse: 73 78 75 72 Resp: 16 16 Temp: TempSrc: SpO2: Weight: Height: Physical Exam: General: no apparent distress, alert, and cooperative Neurologic: alert, oriented, normal speech, no focal findings or movement disorder noted Lungs: No increased work of breathing, good air exchange, clear to auscultation bilaterally, no crackles or wheezing Heart: regular rate and rhythm Abdomen: abdomen soft, non-distended, non-tender Fundus: non-tender, normal size, firm, below umbilicus Extremities: no calf tenderness, non edematous Lab: Lab Results Component Value Date HGB 8.9 (L) 11/26/2021 Lab Results Component Value Date HCT 28.9 (L) 11/26/2021 Assessment/Plan: 1. Shira Leone is a PPD # 8 s/p complicated by PP Pre E w/ SF's - S/p Mag x 24 hours - BP normotensive overnight, with several elevated blood pressures - Last severe 11/28/21 @ 1431 - Denies s/s of pre E - Labetalol increased to 600 QID 11/28 - Procardia increased to 90 XL daily 11/28 - S/p labetalol 20 IV x5, 40 IV x2 (last @0254, 11/28) - S/p IV Hydralazine 10 mg x4 (last @1539, 11/28) - Pre E labs x 1, P/C 0.35 - ALT/AST 44/29>44/26 2. Bottle feeding - Denies s/s of mastits 3. Depression/Anxiety - Denies SI/HI - On Celexa - Has an apt with her therapist next week 4. Anemia - Hg 8.9 - PO iron ordered - Asymptomatic 5. BMI 54 Counseling Completed: Secondary Smoke risks and Sudden Syndrome were reviewed with recommendations. Infant sleeping, back to sleep and avoidance of co-sleeping recommendations were reviewed. Signs and Symptoms of Post Depression were reviewed. The patient is to call if any occur. Signs and symptoms of Mastitis were reviewed. The patient is to call if any occur for follow up. Discharge instructions including pelvic rest, no driving with pain medicine and office follow-up were reviewed with patient Attending Physician: Dr. Reji Flores DO Water Meter Reader Resident 11/29/2021, 2:15 AM * Adeola Gupta DO - 11/28/2021 4:22 AM EDT POST DAY # 7 Shira Leone is a 26 y.o. female This patient was seen & examined today. Her was complicated by: Patient Active Problem List Diagnosis Preeclampsia in period Today she is doing well without any chief complaint. She states that she is just worried about herself and her pressures being so high. Counseled patient that now that baby is delivered we have access to whatever medications we need to adjust her blood pressures. Counseled her that we will not discharge her until her blood pressures are controlled and that we are adjusting her medications today. Patient also states that she has a lot of anxiety. Her Celexa was restarted yesterday and she has anapt with her therapist next week. Her lochia is light. She denies chest pain, shortness of breath, headache, lightheadedness, and blurred vision. She is breast feeding and she denies any breast tenderness. She is ambulating well. Her voiding pattern is normal. I reviewed signs and symptoms of post depression with the patient, she currently denies any of these symptoms. She is tolerating solids. Vital Signs: Vitals: 11/28/21 0350 11/28/21 0400 11/28/21 0410 11/28/21 0420 BP: (!) 153/64 (!) 161/76 (!) 156/67 (!) 153/69 Pulse: 83 79 84 85 Resp: Temp: TempSrc: SpO2: 97% 97% 98% Weight: Height: Physical Exam: General: no apparent distress, alert, and cooperative Neurologic: alert, oriented, normal speech, no focal findings or movement disorder noted Lungs: No increased work of breathing, good air exchange, clear to auscultation bilaterally, no crackles or wheezing Heart: regular rate and rhythm Abdomen: abdomen soft, non-distended, non-tender Fundus: non-tender, normal size, firm, below umbilicus Extremities: no calf tenderness, non edematous Lab: Lab Results Component Value Date HGB 8.9 (L) 11/26/2021 Lab Results Component Value Date HCT 28.9 (L) 11/26/2021 Assessment/Plan: 1. Shira Leone is a No obstetric history on file. PPD # 7 s/p complicated by PP Pre E w/ SF's - S/p Mag x 24 hours - BP elevated, with pressures requiring IV antihypertensives overnight - Last severe 11/28/21 @ 0400 - Denies s/s of pre E - Labetalol increased to 600 TID 11/27 - Procardia increased to 90 XL daily 11/28 - S/p labetalol 20 IV x4, 40 IV x2 (last @1724 11/27) S/p IV Hydralazine 10 mg x3 (last @0226, 11/28) - Pre E labs x 1, P/C 0.35 - ALT/AST 44/29>44/26 2. Breast feeding - Denies s/s of mastits 3. Depression/Anxiety - Denies SI/HI - Patient was restarted on her Celexa - Has an apt with her therapist next week 4. Anemia - Hgb 8.9 - PO iron ordered - Asymptomatic 5. BMI 54 Counseling Completed: Secondary Smoke risks and Sudden Syndrome were reviewed with recommendations. Infant sleeping, back to sleep and avoidance of co-sleeping recommendations were reviewed. Signs and Symptoms of Post Depression were reviewed. The patient is to call if any occur. Signs and symptoms of Mastitis were reviewed. The patient is to call if any occur for follow up. Discharge instructions including pelvic rest, no driving with pain medicine and office follow-up were reviewed with patient Attending Physician: Dr. Candy Flores DO Water Meter Reader Resident 11/28/2021, 4:22 AM Date: 11/28/2021 Time: 7:32 PM Patient Name: Shira Leone Patient : [id number] Room/Bed: 0702/0702-01 Admission Date/Time: 11/26/2021 2:06 AM Attending Physician Statement I have discussed the care of Shira Leone, including pertinent history and exam findings with the resident. I have reviewed and edited their note in the electronic medical record. The navarrete elements of all parts of the encounter have been performed/reviewed by me . I agree with the assessment, plan and orders as documented by the resident. The level of care submitted represents to the best of my ability the care documented in the medicalrecord today. GC Modifier. This service has been performed in part by a resident under the direction of a teaching physician. Continue to monitor BPs and adjust meds as needed. Hopefully DC home tomorrow. Attending's Name: ADEOLA GUPTA DO * Isidro Martínez DO - 11/27/2021 6:13 AM EDT Images from the original note were not included. POST DAY # 6 Shira Leone is a 26 y.o. female This patient was seen & examined today. on 11/21/21 complicated by PP preeclampsia w/ SF's Her was complicated by: Patient Active Problem List Diagnosis Preeclampsia in period Today she is doing well without any chief complaint. Her lochia is light. She denies chest pain, shortness of breath, headache, lightheadedness and blurred vision. She is breast feeding and she denies any breast tenderness. She is ambulating well. Her voiding pattern is normal. I reviewed signs andsymptoms of post depression with the patient, she currently denies any of these symptoms. She is tolerating solids. Vital Signs: Vitals: 11/26/21 2328 11/27/21 0402 11/27/21 0422 11/27/21 0531 BP: (!) 150/61 (!) 174/115 (!) 128/59 131/64 Pulse: 74 69 67 77 Resp: Temp: TempSrc: SpO2: Weight: Height: Physical Exam: General: no apparent distress, alert and cooperative Neurologic: alert, oriented, normal speech, no focal findings or movement disorder noted Lungs: No increased work of breathing, good air exchange, clear to auscultation bilaterally, no crackles or wheezing Heart: Normal apical impulse, regular rate and rhythm, normal S1 and S2, no S3 or S4, and no murmurnoted Abdomen: abdomen soft, non-distended, non-tender Fundus: non-tender, firm, below umbilicus Extremities: no calf tenderness, non edematous Lab: Lab Results Component Value Date HGB 8.9 (L) 11/26/2021 Lab Results Component Value Date HCT 28.9 (L) 11/26/2021 Assessment/Plan: Shira Leone is a PPD# 6 s/p complicated by PP preeclampsia w/ SF's - S/p Mag sulfate x24h - BPs elevated, last severe @ 0402 (11/27). RN noted poor fitting blood pressure cuff. Blood pressure cuff changed and repeat blood pressures normotensive. Will plan to continue to watch blood pressures closely today. - Patient denies any s/s PreE - PreE labs wnl x2, P/C 0.35 - Labetalol 400 mg TID (11/26) - Procardia 30 XL (11/26) - S/p IV labetalol 20 x2, 40 (0854, 11/26) - S/p IV Hydrazine 10 x1 - Continue to monitor closely 1. Hx depression/anxiety - Mood stable on no meds, however patient is requesting to start medications for anxiety. She states Zoloft and Celexa have not worked in the past, patient would like to start Celexa. - Denies SI/HI 2. Anemia - Hgb 8.9 - PO iron ordered - Clinically asymptomatic 3. BMI 54 4. Continue post care Counseling Completed: Secondary Smoke risks and Sudden Infant Syndrome were reviewed with recommendations. Infant sleeping, back to sleep and avoidance of co-sleeping recommendations were reviewed. Signs and Symptoms of Post Depression were reviewed. The patient is to call if any occur. Signs and symptoms of Mastitis were reviewed. The patient is to call if any occur for follow up. Discharge instructions including pelvic rest, no driving with pain medicine and office follow-up were reviewed with patient Attending Physician: Dr. Mauricio Moore DO Water Meter Reader Resident 11/27/2021, 6:13 AM Attending Physician Statement I have discussed the care of Shira Leone, including pertinent history and exam findings, with theresident. I have seen and examined the patient and the navarrete elements of all parts of the encounter have been performed by me. I agree with the assessment, plan and orders as documented by the resident. (GC Modifier) Isidro Martínez DO * Brandie Moore DO - 11/26/2021 7:13 PM EDT Resident Interval Magnesium Sulfate Note Shira Leone is a 26 y.o. female PPD# 5 s/p complicated by PP preeclampsia w/ SF's The patient is resting comfortably. She denies visual changes and abdominal pain in the right upperquadrant. She denies any shortness of breath, headache, or chest pain. She denies change in her extremities, regarding swelling. Continuous Medications: lactated ringers 75 mL/hr at 11/26/21 1358 sodium chloride magnesium sulfate 2,000 mg/hr (11/26/21 1358) Vitals: Vitals: 11/26/21 1601 11/26/21 1700 11/26/21 1801 11/26/21 1830 BP: (!) 143/71 (!) 145/73 (!) 140/68 Pulse: 78 78 76 Resp: 16 16 16 Temp: 98.1 F (36.7 C) TempSrc: Oral SpO2: 99% 99% 99% 97% Weight: Height: Physical Exam: Chest: clear to auscultation bilaterally Heart: RRR no murmur Abdomen: soft, nontender, nondistended Extremities: DTR normal Right: 2/4 Left: 2/4 Clonus: absent Urine Output: 125mL/hr; Yellow urine Labs: Last Magnesium Level: Lab Results Component Value Date MG 1.9 11/25/2021 BMP: Recent Labs 11/25/21205411/26/21 0310 NA 137 137 K 4.2 3.7 CL 104 102 CO2 22 21 BUN 9 7 CREATININE 0.43* 0.32* GLUCOSE 101* 98 ASSESSMENT/PLAN Shira Leone is a 26 y.o. female PPD# 5 s/p complicated by PP preeclampsia w/ SF's - Continue Magnesium Sulfate Treatment 2g/hr, off @ 2210 on 11/26/21 - BPs elevated, last severe @ 0827 (11/26) - Patient denies any s/s PreE - UOP adequate - PreE labs wnl x2, P/C 0.35 - Labetalol 400 mg TID (11/26) - Procardia 30 XL (11/26) - IV labetalol 20 x2, 40 (0854, 11/26) - IV Hydrazine 10 x1 - Continue to monitor closely Brandie Moore DO Water Meter Reader Resident 11/26/2021, 7:15 PM * Brandie Moore DO - 11/26/2021 3:09 PM EDT Resident Interval Magnesium Sulfate Note Shira Leone is a 26 y.o. female PPD# 5 s/p complicated by PP preeclampsia w/ SF's The patient is resting comfortably. She denies visual changes and abdominal pain in the right upperquadrant. She admits to a minor headache from the magnesium. She denies any shortness of breath or chest pain. She denies change in her extremities, regarding swelling. Continuous Medications: lactated ringers 75 mL/hr at 11/26/21 1358 sodium chloride magnesium sulfate 2,000 mg/hr (11/26/21 1358) Vitals: Vitals: 11/26/21 1231 11/26/21 1300 11/26/21 1400 11/26/21 1500 BP: (!) 123/59 138/82 (!) 141/80 (!) 142/62 Pulse: 81 88 85 81 Resp: Temp: 97.5 F (36.4 C) TempSrc: Oral SpO2: 98% 98% 98% Weight: Height: Physical Exam: Chest: clear to auscultation bilaterally Heart: RRR no murmur Abdomen: soft, nontender, nondistended Extremities: DTR decreased Right: 1/4 Left: 14 Clonus: absent Urine Output: 133mL/hr; Yellow urine Labs: Last Magnesium Level: Lab Results Component Value Date MG 1.9 11/25/2021 BMP: Recent Labs 11/25/21205411/26/21 0310 NA 137 137 K 4.2 3.7 CL 104 102 CO2 22 21 BUN 9 7 CREATININE 0.43* 0.32* GLUCOSE 101* 98 ASSESSMENT/PLAN Shira Leone is a 26 y.o. female PPD# 5 s/p complicated by PP preeclampsia w/ SF's - Continue Magnesium Sulfate Treatment 2g/hr, off @ 2210 on 11/26/21 - BPs elevated, last severe @ 0827 (11/26) - Patient admits to minor headache, denies any other s/s PreE - UOP adequate - PreE labs wnl x2, P/C 0.35 - Labetalol 400 mg TID (11/26) - Procardia 30 XL (11/26) - IV labetalol 20 x2, 40 (0854, 11/26) - IV Hydrazine 10 x1 - Continue to monitor closely Brandie Moore DO Water Meter Reader Resident 11/26/2021, 3:10 PM * Juliana Leyva DO - 11/26/2021 11:10 AM EDT Resident Interval Magnesium Sulfate Note Shira Leone is a 26 y.o. female No obstetric history on file. PPD# 5 s/p 11/21/21 The patient is resting comfortably. She denies visual changes and abdominal pain in the right upperquadrant. She denies any shortness of breath or chest pain. She denies change in her extremities, regarding swelling. She endorses dull mag headache but states she just took Tylenol. Reports feeling much better overall. Continuous Medications: lactated ringers 75 mL/hr at 11/26/21 0255 sodium chloride magnesium sulfate 2,000 mg/hr (11/26/21 0703) Vitals: Vitals: 11/26/21 0916 11/26/21 0931 11/26/21 1001 11/26/21 1031 BP: (!) 150/70 (!) 146/70 136/65 (!) 153/63 Pulse: 80 78 69 84 Resp: 16 Temp: TempSrc: SpO2: 98% Weight: Height: Physical Exam: Chest: clear to auscultation bilaterally Heart: RRR no murmur Abdomen: soft, nontender, nondistended Extremities: DTR decreased Right: 1/4 Left: 1/4 Clonus: absent Urine Output: 250mL out since admission; clear urine Labs: Last Magnesium Level: Lab Results Component Value Date MG 1.9 11/25/2021 BMP: Recent Labs 11/25/21205411/26/21 0310 NA 137 137 K 4.2 3.7 CL 104 102 CO2 22 21 BUN 9 7 CREATININE 0.43* 0.32* GLUCOSE 101* 98 ASSESSMENT/PLAN Shira Leone is a 26 y.o. female PPD#5 s/p 11/21/21 admitted with PP PreE with SF - Continue Magnesium Sulfate Treatment 2g/hr, off @ 2210 on 11/26/21 - No Mag levels q6hrs per provider - BPs elevated, non severe currently - Patient denies any s/s PreE - UOP adequate - PreE labs wnl x2, P/C 0.35 - S/p Labetalol IV 20 and Procardia XL 30mg at 0854 (11/26) - Continue labetalol 400mg TID (11/26) - Continue to monitor Juliana Leyva DO Water Meter Reader Resident 11/26/2021, 10:02 AM * Jenifer Maki DO - 11/26/2021 8:51 AM EDT Obstetric/Gynecology Resident Interval Note Notified by RN of severe range blood pressures. Will treat with IV labetalol 20 mg and add Procardia 30 mg XL. Jenifer Maki DO CLEAT THROWER Resident, PGY3 [place], [place] 11/26/2021, 8:51 AM * Juany Salmeron DO - 11/26/2021 6:54 AM EDT Resident Interval Magnesium Sulfate Note Shira Leone is a 26 y.o. female PPD# 5 s/p The patient is resting comfortably. She denies headache, visual changes, abdominal pain in the right upper quadrant and vaginal bleeding. She denies any shortness of breath or chest pain. She denies change in her extremities, regarding swelling. Continuous Medications: lactated ringers 75 mL/hr at 11/26/21 0255 sodium chloride magnesium sulfate Vitals: Vitals: 11/26/21 0545 11/26/21 0546 11/26/21 0607 11/26/21 0615 BP: (!) 165/75 (!) 157/73 (!) 158/78 Pulse: 79 80 74 Resp: (!) 33 (!) 36 Temp: TempSrc: SpO2: 96% 94% Weight: 290 lb (131.5 kg) Height: 5' 1 (1.549 m) Physical Exam: Chest: clear to auscultation bilaterally Heart: RRR no murmur Abdomen: soft, nontender, nondistended Extremities: DTR normal Right: +2/4 Left: +2/4 Clonus: absent Urine Output: None recorded Labs: Last Magnesium Level: Lab Results Component Value Date MG 1.9 11/25/2021 BMP: Recent Labs 11/25/21205411/26/21 0310 NA 137 137 K 4.2 3.7 CL 104 102 CO2 22 21 BUN 9 7 CREATININE 0.43* 0.32* GLUCOSE 101* 98 ASSESSMENT/PLAN Shira Leone is a 26 y.o. female PPD#5 s/p admitted with PP PreE w/ Sfs - Continue Magnesium Sulfate Treatment 2g/hr, off @ 2210 on 11/26/21 - no Mag levels q6hrs per provider - BPs have remained elevated with intermittent severe ranges - Patient denies any s/s PreE - UOP not recorded - PreE labs ALT/AST 44/29>44.26, P/C 0.35 Juany Salmeron DO Water Meter Reader Resident 11/26/2021, 6:54 AM documented in this [facility] Work Phone: [phone] 314-267003-21-2022 Hospital Discharge instructions* Instructions* Mich Duran DO - 11/28/2021 Images from the original note were not included. Learning About Preeclampsia After Childbirth What is preeclampsia? A woman with preeclampsia has blood pressure that is higher than usual. She may also have other serious symptoms. Preeclampsia can be dangerous. When it is severe, it can cause seizures (eclampsia) or liver or kidney damage. When the liver is affected, some women get HELLP syndrome, a blood-clotting and bleedingproblem. HELLP can come on quickly and can be deadly. This is why your doctor checks you and your baby often. Preeclampsia usually occurs after 20 weeks of . Most often, it starts near the end of and goes away after childbirth. But symptoms may last a few weeks or more and can get worse after delivery. Rarely, symptoms of preeclampsia don't show up until days or even weeks after childbirth. What are the symptoms? Mild preeclampsia usually doesn't cause symptoms. But preeclampsia can cause rapid weight gain and sudden swelling of the hands and face. Severe preeclampsia does cause symptoms. It can cause a very bad headache and trouble seeing and breathing. It also can cause belly pain. You may also urinate less than usual. What can you expect after you have had preeclampsia? In the hospital After the baby and the placenta are delivered, preeclampsia usually starts to improve. Most women get better in the first few days after childbirth. After having preeclampsia, you still have a risk of seizures for a day or more after childbirth. (Very rarely, seizures happen later on.) So your doctor may have you take magnesium sulfate for a day or more to prevent seizures. You may also take medicine to lower your blood pressure. When you go home Your blood pressure will most likely return to normal a few days after delivery. Your doctor will want to check your blood pressure sometime in the first week after you leave the hospital. Some women still have high blood pressure 6 weeks after childbirth. But most return to normal levels over the termite control servicer. Take and record your blood pressure at home if your doctor tells you to. ? Ask your doctor to check your blood pressure monitor to be sure that it is accurate and that the cuff fits you. Also ask your doctor to watch you use it, to make sure that you are using it right. ? You should not eat, use tobacco products, or use medicine known to raise blood pressure (such as some nasal decongestant sprays) before you take your blood pressure. ? Avoid taking your blood pressure if you have just exercised. Also avoid taking it if you are nervous or upset. Rest at least 15 minutes before you take your blood pressure. Be safe with medicines. If you take medicine, take it exactly as prescribed. Call your doctor if you think you are having a problem with your medicine. Do not smoke. Quitting smoking will help improve your baby's growth and health. If you need help quitting, talk to your doctor about stop-smoking programs and medicines. These can increase your chances of quitting for good. Eat a balanced and healthy diet that has lots of fruits and vegetables. Long-term health After you have had preeclampsia, you have a lsrumy-bvvi-lqysjlb risk of heart disease, stroke, and kidney disease. This may be because the same things that cause preeclampsia also cause heart and kidney disease. To protect your health, work with your doctor on living a heart-healthy lifestyle and getting the checkups you need. Your doctor may also want you to check your blood pressure at home. Follow-up care is a navarrete part of your treatment and safety. Be sure to make and go to all appointments, and call your doctor if you are having problems. It's also a good idea to know your test resultsand keep a list of the medicines you take. When should you call for help? Share this information with your partner or a friend. They can help you watch for warning signs. Call 911 anytime you think you may need emergency care. For example, call if: You passed out (lost consciousness). You have a seizure. Call your doctor now or seek immediate medical care if: You have symptoms of preeclampsia, such as: ? Sudden swelling of your face, hands, or feet. ? New vision problems (such as dimness, blurring, or seeing spots). ? A severe headache. Your blood pressure is very high, such as 160/110 or higher. Your blood pressure is higher than your doctor told you it should be, or it rises quickly. You have new nausea or vomiting. You have pain in your belly or pelvis. Watch closely for changes in your health, and be sure to contact your doctor if: You gain weight rapidly. Where can you learn more? Go to [email or web address] and sign in to your [email or web address] account. Enter Q718 in the Search Health Information box to learn more about Learning About Preeclampsia After Childbirth. If you do not have an account, please click on the Sign Up Now link. Current as of: February 23, 2021 Content Version: 13. [employer]. Care instructions adapted under license by [employer]. If you have questions about a medical condition or this instruction, always ask your healthcare professional. [employer] disclaims any warranty or liability for your use of this information. documented in this encounterCalligo Phone: evaluation note* Diagnosis Preeclampsia in period- Primary documented in this encounter [employer] Phone: [email or web address] note* Diagnosis Hx PP Pre E w/ SF- Primary Anemia Anemia, unspecified Depression/Anxiety Depressive disorder, not elsewhere classified Hx GDM Abnormal maternal glucose tolerance, complicating , childbirth, or the puerperium, unspecified as to episode of care FHx DM documented in this encounter [employer] Phone: evalhhmngk note* Diagnosis Acute pulmonary embolism, unspecified pulmonary embolism type, unspecified whether acute cor pulmonale present ([facility]) Class 3 severe obesity due to excess calories with serious comorbidity and body mass index (BMI) of 50.0 to 59.9 in adult ([facility]) Thyroid nodule Nontoxic uninodular goiter documented in this encounter [employer] Phone: evaluation note* Diagnosis Shortness of breath- Primary documented in this encounter [employer] Phone: evaluation note* Diagnosis Acute cystitis with hematuria- Primary Dysuria [facility] Diagnosis Non-recurrent acute serous otitis media of left ear- Primary Bariatric surgery status Vitamin D deficiency Iron deficiency anemia, unspecified iron deficiency anemia type [facility] Diagnosis Influenza A- Primary Influenza with other respiratory manifestations Fever, unspecified fever cause [facility] Diagnosis Pre-bariatric surgery nutrition evaluation- Primary Morbid obesity ([facility]) Morbid [facility] Diagnosis Pre-bariatric surgery nutrition evaluation- Primary Morbid obesity ([facility]) Morbid obesity [facility] Diagnosis Preop testing- Primary Unspecified pre-operative examination [facility] Diagnosis Mild intermittent asthma, unspecified whether complicated- Primary LUCIANO on CPAP [facility] Diagnosis Pre-bariatric surgery nutrition evaluation- Primary Morbid obesity ([facility]) Morbid obesity [facility] Diagnosis Preop testing- Primary Unspecified pre-operative examination LUCIANO on CPAP History of pulmonary embolism Personal history of venous thrombosis and embolism Class 2 severe obesity due to excess calories with serious comorbidity in adult, unspecified BMI ([facility]) Essential hypertension Unspecified essential hypertension [facility] Diagnosis Pre-bariatric surgery nutrition evaluation- Primary Morbid obesity ([facility]) Morbid obesity [facility] Diagnosis Pre-bariatric surgery nutrition evaluation- Primary Morbid obesity ([facility]) Morbid obesity [facility] Diagnosis Preop cardiovascular exam- Primary Pre-operative cardiovascular examination [facility] Diagnosis Preop testing- Primary Unspecified pre-operative examination [facility] Diagnosis Pre-op testing- Primary Unspecified pre-operative examination [facility] Diagnosis Constipation, unspecified constipation type- Primary [facility] Diagnosis Class 3 severe obesity with body mass index (BMI) of 60.0 to 69.9 in adult ([facility])- Primary Class 3 severe obesity due to excess calories with serious comorbidity and body mass index (BMI) of 60.0 to 69.9 in adult ([facility]) History of pulmonary embolism Personal history of venous thrombosis and embolism Acute post-operative pain [facility] Diagnosis Dietary counseling and surveillance- Primary Morbid obesity ([facility]) Morbid obesity Malnutrition following gastrointestinal surgery Other and unspecified postsurgical nonabsorption Postsurgical malabsorption [facility] Diagnosis LUCIANO on CPAP- Primary H/O gastric bypass Postoperative malabsorption Malnutrition following gastrointestinal surgery Other and unspecified postsurgical nonabsorption [facility] Diagnosis Morbid obesity with BMI of 60.0-69.9, adult ([facility])- Primary Dietary counseling and surveillance- Primary Malnutrition following gastrointestinal surgery Other and unspecified postsurgical nonabsorption Postsurgical malabsorption H/O gastric bypass [facility] Diagnosis Dietary counseling and surveillance- Primary Malnutrition following gastrointestinal surgery Other and unspecified postsurgical nonabsorption Postsurgical malabsorption H/O gastric bypass [facility] Diagnosis Malnutrition following gastrointestinal surgery- Primary Other and unspecified postsurgical nonabsorption Postsurgical malabsorption H/O gastric bypass B12 deficiency [facility] Diagnosis Malnutrition following gastrointestinal surgery- Primary Other and unspecified postsurgical nonabsorption Postsurgical malabsorption H/O gastric bypass History of anemia Personal history of diseases of blood and blood-forming organs [facility] Diagnosis History of Bonnie-en-Y gastric bypass- Primary Postsurgical malabsorption Malnutrition following gastrointestinal surgery Other and unspecified postsurgical nonabsorption History of anemia Personal history of diseases of blood and blood-forming organs B12 deficiency [facility]* Diagnosis Missed menses , unspecified gestational age ([facility]) Encounter for supervision of normal first in first trimester ([facility]) Nausea Nausea alone [facility] Discharge instructionsNot on filedocumented in this encounterPro[facility] SystemInstructionsNot on filedocumented in this encounterProMedica Health SystemInstructionsNot on filedocumented in this encounterProMedica Health SystemInstructionsNot on filedocumented in this encounterProMedica [facility] SystemInstructionsNot on filedocumented in this encounterProMedica Health SystemInstructionsNot on filedocumented in this encounterProMedica Health SystemInstructionsNot on filedocumented in this encounterProMedica Health SystemInstructionsNot on filedocumented in this encounterProMedica Health SystemInstructionsNot on filedocumented in this encounterProW[facility] SystemInstructionsNot on filedocumented in this encounterProWadsworth-Rittman [facility] SystemInstructionsNot on filedocumented in this encounterTol[facility] SystemInstructionsNot on filedocumented in this encounterMount St. [facility] HospitalReason for visit Narrative* Consultation (Routine) - Pending Review Specialty Diagnoses / Procedures Referred By [facility] Referred To Contact Nutrition Diagnoses Morbid obesity ([facility]) Pre-bariatric surgery nutrition evaluation Preop testing Tonia Manzo MD [address] , [address] [address] Referral ID Status Reason Start Date Expiration Date Visits Requested Visits Authorized [id number] Pending Review Specialty Services Required 02/22/2023 02/22/[address] [facility] N[facility]ative* Consultation (Routine) - Pending Review Specialty Diagnoses / Procedures [facility] Referred To Contact Nutrition Diagnoses Malnutrition following gastrointestinal surgery Postsurgical malabsorption Tonia Manzo MD [address] , [address] [address] Referral ID Status Reason Start Date Expiration Date Visits Requested Visits Authorized [id number] Pending Review Specialty Services Required 05/01/2024 05/01/[address] [facility] Summary Purpose Family History No Family History Records FoundNo Family History Records FoundNo Family History Records FoundNo Family History Records FoundNo Family History Records FoundNo Family History Records FoundNo Family History Records FoundNo Family History Records Found Advance Directives No Advanced Directives Records FoundLatest Code Status on File Code Status Date Activated Date Inactivated Comments Full Code 11/26/2021 6:26 AM Latest Code Status on File Code Status Date Activated Date Inactivated Comments Full Code 11/30/2021 11:58 PM Full Code 11/26/2021 6:26 AM 11/29/2021 1:42 PM Latest Code Status on File Code Status Date Activated Date Inactivated Comments Full Code 11/30/2021 11:58 PM 12/01/2021 6:28 PM Latest Code Status on File Code Status Date Activated Date Inactivated Comments Full Code 07/30/2022 11:42 PM 07/31/2022 2:48 PM Code Status History Code Status Date Activated Date Inactivated Comments Full Code 11/24/2018 10:44 PM 11/27/2018 4:48 PM Date Activated Date Inactivated Comments 07/30/2022 11:42 PM 07/31/2022 2:48 PM Date Activated Date Inactivated Comments 11/24/2018 10:44 PM 11/27/2018 4:48 PM Latest Code Status on File Code Status Date Activated Date Inactivated Comments Full Code 07/30/2022 11:42 PM 07/31/2022 2:48 PM Code Status History Code Status Date Activated Date Inactivated Comments Full Code 11/24/2018 10:44 PM 11/27/2018 4:48 PM Date Activated Date Inactivated Comments 04/23/2024 11:06 AM 04/24/2024 4:47 PM Date Activated Date Inactivated Comments 07/30/2022 11:42 PM 07/31/2022 2:48 PM Date Activated Date Inactivated Comments 11/24/2018 10:44 PM 11/27/2018 4:48 PM Date Activated Date Inactivated Comments 04/23/2024 11:06 AM 04/24/2024 4:47 PM Date Activated Date Inactivated Comments 07/30/2022 11:42 PM 07/31/2022 2:48 PM Date Activated Date Inactivated Comments 11/24/2018 10:44 PM 11/27/2018 4:48 PM Reason for Referral Specialty Diagnoses / Procedures Referred By Contac t Referred To Contact Procedures Discharge Follow-Up Moriah Guthrie PA-C [address] [address] Referral ID Status Reason Start Date Expiration Date V isits Requested Visits Authorized [id number] Pending Review 04/24/2024 04/24/2025 1 1 Specialty Diagnoses / Procedures Referred By Contac t Referred To Contact Procedures No dressing needed Moriah Guthrie PA-C [address] [facility] [address] [place] [id number] Referral ID Status Reason Start Date Expiration Date V isits Requested Visits Authorized [id number] Pending Review 04/24/2024 04/24/2025 1 1 Specialty Diagnoses / Procedures Referred By Contac t Referred To Contact Procedures Hygiene Moriah Guthrie PA-C [address] [facility] [address] [place] [id number] Referral ID Status Reason Start Date Expiration Date V isits Requested Visits Authorized [id number] Pending Review 04/24/2024 04/24/2025 1 1 Specialty Diagnoses / Procedures Referred By Contac t Referred To Contact Procedures Adult diet Moriah Guthrie PA-C [address] [facility] [address] [place] [address] Referral ID Status Reason Start Date Expiration Date V isits Requested Visits Authorized [id number] Pending Review 04/24/2024 04/24/2025 1 1 Additional Source Comments INFORMATION SOURCE (unrecogn ized section and content) DATE CREATED AUTHOR 01/10/2019 [facility] DATE CREATED AUTHOR AUTHOR'S ORGANIZ ATION 12/06/2021 [facility] DATE CREATED AUTHOR AUTHOR'S ORGANIZ ATION 01/16/2022 [facility] DATE CREATED AUTHOR AUTHOR'S ORGANIZ ATION 11/16/2022 [facility] DATE CREATED AUTHOR AUTHOR'S ORGANIZ ATION 09/30/2023 [facility] DATE CREATED AUTHOR AUTHOR'S ORGANIZ ATION 01/02/2025 [facility] DATE CREATED AUTHOR AUTHOR'S ORGANIZ ATION 01/04/2025 [facility] DATE CREATED AUTHOR AUTHOR'S ORGANIZ ATION 03/24/2025 [facility] EPIC Reason for Visit (unrecogniz ed section and content) Reason Comments Chest [facility] gave on 11[facility]21/21. Hypertension on 200 mg labetalol daily. Reason Comments Hypertension Specialty Diagnoses / Procedures Referred By Contac t Referred To Contact Diagnoses Preeclampsia in period Isidro Martínez DO [address] [address] [facility] [address] [place] [address] Referral ID Status Reason Start Date Expiration Date Visits Re quested Visits Authorized 1 1 Reason Comments Chest Pain onset this morning, was admitted for preeclampsia Shortness of Breath Specialty Diagnoses / Procedures Referred By Temi devi Referred To Contact Diagnoses Right pulmonary embolus (HCC) Acute pulmonary embolism, unspecified pulmonary embolism type, unspecified whether acute cor pulmonale present ([facility]) Marilee Medina MD [address] [place] [address] [facility] [address] [place] [address] Referral ID Status Reason Start Date Expiration Date Visits Re quested Visits Authorized 1 1 Reason Comments Shortness of Breath recently dx with pul monary embolism. pt was d/c and still feels sob Reason Comments UTI Patient presents tod ay for urinary frequency and urgency for 3 days. Reason Comments Earache Bilateral ear pain. Patient states that she has pressure and ringing in her ears. Patient states that the left is worse. Patient went to Urgent Care on 08/19 and got azithromycin and prednisone, but it has not helped. 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-ref from Maria Elena Manzo MD for pre op for bariatric surgery-patient has no date/time/place set for surgery-never seen cardiology-no covid-no cardiac devices-echo/labs done at [facility] 07/05-sched wt pt Specialty Diagnoses / Procedures Referred By Temi devi Referred To Contact Cardiology Diagnoses Preop testing Tonia Manzo MD [address] , [address] [place] [address] [facility] [address] [place] [address] Referral ID Status Reason Start Date Expiration Date Visits Requested Visits Authorized [id number] Pending Review Specialty Services Required 3 07/22/2024 1 1 Referral ID Status Reason Start Date Expiration Date V isits Requested Visits Authorized [id number] Closed Specialty Services Required 02/22/2023 02/22/2024 12 12 Reason Comments Pre-op Exam Preop Bariatric surg Dr. Shirley Reason Comments Consult Sign consent Specialty Diagnoses / Procedures Referred By Contac t Referred To Contact Diagnoses MORBID OBESITY/HYPERTENSION Procedures IL LAP GASTRIC BYPASS/BONNIE-EN-Y DAVINCI DV5 BYPASS GASTRIC BONNIE-EN Y Tonia aMnzo MD [address], [address] [address] Referral ID Status Reason Start Date Expiration Date Visits Re quested Visits Authorized [id number] 1 1 Reason Onset Date Comments bloody mocus 04/27/2024 Reason Comments Post-op 1 week RYGB; feels t ired;40 ounces of fluids; 2 protein shakes a day, struggles with the evening protein shake Reason Comments Patient Education Pre op bariatric sissy hannah education class Reason Comments Injection B12 lesson Reason Comments Follow-up LATE 6 MONTH bypass [place] 04/23/24 Injection B12 INJECTION Reason Comments Routine Visit Scheduled Active and Recently Administ ered Medications (unrecognized section and content) Medication Order 11/24/2021 11/25/2021 11/26/2021 acetaminophen (TYLENOL) tablet 1,000 mg (COMPLETED) 1,000 mg, Oral, ONCE, On Sun11/25/21 at 2330, For 1 dose, Maximum dose of acetaminophen is 4000 mg from all sources in 24 hours. 2324 (Given - Provider: Sabina Glover RN) hydrALAZINE (APRESOLINE) injection 10 mg (COMPLETED) 10 mg, IntraVENous, ONCE, On Sun11/25/21 at 2130, For 1 dose 2130 (Given - Provider: Mark Aguillon RN) magnesium sulfate 2000 mg in 50 mL IVPB premix 2,000 mg/hr (50 mL/hr), IntraVENous, Administer over 1 Hours, EVERY HOUR, First dose on Sun11/25/21 at 2215, For 48 hours, Pre-Infusion: Assess baseline vital signs, breath sounds, oxygen saturation level, intake and output, and neurologic status (deep tendon reflexes, presence or absence of clonus, and level of consciousness (LOC), presence of headaches or visual disturbances, presence or absence of epigastric pain. Vitals to include baseline temperature. Temperature to be reassessed every 4 hours if membranes are intact or every 2 hours if membranes have ruptured. Loading Dose/Infusion: Stay with the patient during the loading dose to monitor for adverse drug reactions. - Monitor pulse oximetry continuously throughout the infusion - Monitor vital signs, deep tendon reflexes, and LOC every 15 minutes for one hour, then every 30 minutes for one hour, then hourly while infusing Notify care provider immediately of absent deep tendon reflexes, a urine output of less than 30 mL/hour, respirations of less than 12 breaths/minute, or an oxygen saturation level of less than 90%. Grams to milligrams conversion table: 1 gram = 1000 mg 2 grams = 2000 mg 4 grams = 4000 mg 6 grams = 6000 mg 20 grams = 20,000 mg 2237 (New Bag - Provider: Sabina Glover RN) 0020 (New Bag - Provider: Sabina Glover RN)0021 (Stopped - Provider: Sabina Glover RN)0100 (Due)0120 (New Bag - Provider: Sabina Glover RN)0157 (Stopped - Provider: Sabina Glover RN)0159 (Due: Stopped - Provider: Sabina Glover RN)0200 (Due)0300 (Due)0400 (Due)0500 (Due)0600 (Due)0700 (Due)0800 (Due)0900 (Due)1000 (Due)1100 (Due)1200 (Due)1300 (Due)1400 (Due)1500 (Due)1600 (Due)1700 (Due)1800 (Due)1900 (Due)2000 (Due)2100 (Due)2200 (Due)2300 (Due) magnesium sulfate 2000 mg in dextrose 50 mL IVPB (COMPLETED) 2,000 mg, IntraVENous, at 300 mL/hr, Administer over 10 Minutes, EVERY 10 MIN, First dose on Sun11/25/21 at 2215, For 2 doses, Pre-Infusion: Assess baseline vital signs, breath sounds, oxygen saturation level, intake and output, and neurologic status (deep tendon reflexes, presence or absence of clonus, and level of consciousness (LOC). Vitals to include baseline temperature. Temperature to be reassessed every 4 hours if membranes are intact or every 2 hours if membranes have ruptured. Loading Dose/Infusion: Stay with the patient during the loading dose to monitor for adverse drug reactions. - Monitor pulse oximetry continuously throughout the infusion - Monitor vital signs, deep tendon reflexes, and LOC every 15 minutes for one hour, then every 30 minutes for one hour, then hourly while infusing Notify care provider immediately of absent deep tendon reflexes, a urine output of less than 30 mL/hour, respirations of less than 12 breaths/minute, or an oxygen saturation level of less than 90%. Grams to milligrams conversion table: 1 gram = 1000 mg 2 grams = 2000 mg 4 grams = 4000 mg 6 grams = 6000 mg 20 grams = 20,000 mg 2211 (New Bag - Provider: Sabina Glover RN)2223 (Stopped - Provider: Sabina Glover RN)2226 (New Bag - Provider: Sabina Glover RN)2240 (Stopped - Provider: Sabina Glover RN) PRN Medication Order 11/24/2021 11/25/2021 11/26/2021 calcium gluconate 10 % injection 1,000 mg 1,000 mg, IntraVENous, PRN, For suspected magnesium toxicity or for respiratory rate less than 6 per minute., Starting on Sun11/25/21 at 2142, Administer slow IV push over 5 minutes. Scheduled Medication Order 11/27/2021 11/28/2021 11/29/2021 citalopram (CELEXA) tablet 10 mg 10 mg, Oral, DAILY, First dose on Sun11/27/21 at 0900 0939 (Given - Provider: Gale Saravia RN) 0847 (Given - Provider: Liyah Asher RN) 0900 (Given - Provider: Nilam Montes, LEANDRO) ferrous sulfate (FE TABS 325) EC tablet 325 mg 325 mg, Oral, DAILY WITH BREAKFAST, First dose on Sun11/26/21 at 0800 0938 (Given - Provider: Gale Saravia RN) 0847 (Given - Provider: Liyah Asher RN) 0759 (Given - Provider: Nilam Montes, LEANDRO) hydrALAZINE (APRESOLINE) injection 10 mg (COMPLETED) 10 mg, IntraVENous, ONCE, On 11/27/21 at 2000, For 1 dose 1938 (Given - Provider: Radha Correa RN) hydrALAZINE (APRESOLINE) injection 10 mg (COMPLETED) 10 mg, IntraVENous, ONCE, On Sun11/28/21 at 0145, For 1 dose 0129 (Given - Provider: May Malone, LEANDRO) hydrALAZINE (APRESOLINE) injection 10 mg (COMPLETED) 10 mg, IntraVENous, ONCE, On Sun11/28/21 at 0230, For 1 dose 0226 (Given - Provider: May Malone, LEANDRO) hydrALAZINE (APRESOLINE) injection 10 mg (COMPLETED) 10 mg, IntraVENous, ONCE, On Sun11/28/21 at 1600, For 1 dose 1539 (Given - Provider: Liyah Asher RN) labetalol (NORMODYNE) tablet 400 mg (CANCELED) 400 mg, Oral, EVERY 8 HOURS, First dose on 11/26/21 at 0415 0409 (Given - Provider: Soco Navarro RN)1258 (Given - Provider: Gale Saravia RN) labetalol (NORMODYNE) tablet 600 mg (CANCELED) 600 mg, Oral, EVERY 8 HOURS, First dose (after last modification) on 11/27/21 at 2000, STAT 1846 (Given by Other - Provider: Radha Correa RN - Comment: Given by day shift nurse) 0407 (Given - Provider: May Malone, LEANDRO)1159 (Given - Provider: Liyah Asher, LEANDRO) labetalol (NORMODYNE) tablet 600 mg 600 mg, Oral, EVERY 6 HOURS, First dose (after last modification) on 11/28/21 at 1600, STAT 1539 (Given - Provider: Liyah Asher RN)2157 (Given - Provider: Emma Borja, LEANDRO) 0346 (Given - Provider: Emma Borja RN)0956 (Given - Provider: Nilam Montes RN)1600 (Due)2200 (Due) labetalol (NORMODYNE;TRANDATE) injection 20 mg (COMPLETED) 20 mg, IntraVENous, ONCE, On 11/27/21 at 1100, For 1 dose 1041 (Given - Provider: Gale Saravia RN) labetalol (NORMODYNE;TRANDATE) injection 20 mg (COMPLETED) 20 mg, IntraVENous, ONCE, On 11/27/21 at 1730, For 1 dose 1712 (Given - Provider: Gale Saravia RN) labetalol (NORMODYNE;TRANDATE) injection 20 mg (COMPLETED) 20 mg, IntraVENous, ONCE, On 11/28/21 at 0315, For 1 dose 0254 (Given - Provider: May Malone RN) NIFEdipine (PROCARDIA XL) extended release tablet 30 mg (CANCELED) 30 mg, Oral, DAILY, First dose on 11/27/21 at 0900, Do not crush or break. 938 (Given - Provider: Gale Saravia RN) NIFEdipine (PROCARDIA XL) extended release tablet 30 mg (COMPLETED) 30 mg, Oral, ONCE, On 11/27/21 at 2100, For 1 dose, Do not crush or break. 2053 (Given - Provider: Radha Correa RN) NIFEdipine (PROCARDIA XL) extended release tablet 90 mg 90 mg, Oral, DAILY, First dose on 11/28/21 at 0900, Do not crush or break. 0810 (Given - Provider: Liyah Asher RN) 0900 (Given - Provider: Nilam Montes RN) vitamin plus iron 29-1 MG tablet 1 tablet 1 tablet, Oral, DAILY, First dose on 11/26/21 at 0900 0938 (Given - Provider: Gale Saravia RN) 0847 (Given - Provider: Liyah Asher RN) 0900 (Given - Provider: Nilam Montes RN) sodium chloride flush 0.9 % injection 5-40 mL 5-40 mL, IntraVENous, EVERY 12 HOURS SCHEDULED (2 times per day), First dose on 11/26/21 at 0900, For Line Patency: Peripheral IV = 5 mL; Midline or Central Line = 10 mL/lumen. If following IV push medication, administer flush at same rate as the IV push. Flush volume is determined by type of infusion therapy being given. For non-viscous solutions use: Peripheral IV = 5 mL Midline or Central Line = 10 mL/lumen For viscous solutions (i.e. blood components, parenteral nutrition, contrast media, or after obtaining blood sample) use: Peripheral IV = 10 mL Midline or Central Line = 20 mL/lumen 1053 (Given - Provider: Gale Saravia RN)4 (Given - Provider: Radha Correa RN) 0848 (Given - Provider: Liyah Asher, LEANDRO)2111 (Given - Provider: Emma Borja, LEANDRO) 09 (Given - Provider: Nilam Montes, LEANDRO)2100 (Due) PRN Medication Order 11/27/2021 11/28/2021 11/29/2021 0.9 % sodium chloride infusion 25 mL, IntraVENous, at 100 mL/hr, PRN, If patient receiving piggyback infusions without ordered maintenance IV fluids or with frequent/long duration piggyback infusions, Starting on 11/26/21 at 0623, Administer at the same rate as the piggyback being infused. acetaminophen (TYLENOL) tablet 1,000 mg 1,000 mg, Oral, EVERY 6 HOURS PRN, Pain Mild (1-3), Starting on 11/26/21 at 0402, Maximum dose of acetaminophen is 4000 mg from all sources in 24 hours. 0129 (Given - Provider: May Malone RN)0815 (Given - Provider: Liyah Asher RN)2111 (Given - Provider: Emma Borja, LEANDRO) 0713 (Given - Provider: Nilam Montes, LEANDRO) calcium carbonate (TUMS) chewable tablet 1,000 mg 1,000 mg, Oral, 3 TIMES DAILY PRN, Heartburn, Starting on 11/26/21 at 0402 diphenhydrAMINE (BENADRYL) tablet 25 mg 25 mg, Oral, EVERY 6 HOURS PRN, Itching, Starting on 11/26/21 at 0402 diphenhydrAMINE (BENADRYL) tablet 25 mg 25 mg, Oral, EVERY 6 HOURS PRN, Itching, Sleep, Starting on 11/28/21 at 0422 0424 (Given - Provider: May Malone, LEANDRO) hydrOXYzine (ATARAX) tablet 25 mg 25 mg, Oral, 3 TIMES DAILY PRN, Itching, Anxiety, Starting on 11/26/21 at 2324 0013 (Given - Provider: Soco Navarro, RN) hydrOXYzine (ATARAX) tablet 25 mg 25 mg, Oral, 3 TIMES DAILY PRN, Itching, Anxiety, Starting on 11/27/21 at 2038 2054 (Given - Provider: Radha Correa, LEANDRO) ibuprofen (ADVIL;MOTRIN) tablet 600 mg 600 mg, Oral, EVERY 6 HOURS PRN, Pain Mild (1-3), Starting on 11/26/21 at 0401, Do not crush or chew. 0626 (Given - Provider: May Malone, LEANDRO)1400 (Given - Provider: Liyah Asher RN) melatonin tablet 5 mg 5 mg, Oral, NIGHTLY PRN, Sleep, Starting on 11/28/21 at 2100 2200 (Given - Provider: Emma Borja RN) sodium chloride flush 0.9 % injection 5-40 mL 5-40 mL, IntraVENous, PRN, Line Care, After every IV line use, Starting on 11/26/21 at 0623, For Line Patency: Peripheral IV = 5 mL; Midline or Central Line = 10 mL/lumen. If following IV push medication, administer flush at same rate as the IV push. Flush volume is determined by type of infusion therapy being given. For non-viscous solutions use: Peripheral IV = 5 mL Midline or Central Line = 10 mL/lumen For viscous solutions (i.e. blood components, parenteral nutrition, contrast media, or after obtaining blood sample) use: Peripheral IV = 10 mL Midline or Central Line = 20 mL/lumen 0939 (Given - Provider: Gale Saravia, LEANDRO) No Frequency Medication Order 11/27/2021 11/28/2021 11/29/2021 labetalol (NORMODYNE;TRANDATE) 5 MG/ML injection (COMPLETED) Starting on 11/27/21 at 1722, For 1 dose, Gale Saravia: cabinet override 1724 (Given - Provider: Gale Saravia RN) Scheduled Medication Order 11/29/2021 11/30/2021 12/01/2021 0.9 % sodium chloride bolus (COMPLETED) 1,000 mL (7.9 mL/kg), IntraVENous, at 1,000 mL/hr, Administer over 1 Hours, ONCE, On Sun11/30/21 at 2015, For 1 dose 2026 (New Bag - Provider: Casandra Maddox RN)2126 (Stopped - Provider: Casandra Maddox RN) 0.9 % sodium chloride bolus (COMPLETED) 80 mL (0.632 mL/kg), IntraVENous, at 80 mL/hr, Administer over 1 Hours, ONCE, On Sun11/30/21 at 2145, For 1 dose 2212 (New Bag - Provider: Juhi Yuan)2216 (Stopped - Provider: Juhi Yuan) apixaban (ELIQUIS) tablet 10 mg (CANCELED) 10 mg, Oral, 2 TIMES DAILY, 14 doses, First dose on Sun12/01/21 at 0900, Last dose on Sun12/07/21 at 2100, ANTICOAGULANT 0905 (Given - Provid er: Stacy Conley RN) aspirin EC tablet 325 mg 325 mg, Oral, DAILY, First dose on Sun12/01/21 at 0015, Until Discontinued, Please give ASA dose upon admission if not done in ER then DAILY 0124 (Given - Provid er: Afsaneh Oviedo RN) citalopram (CELEXA) tablet 10 mg 10 mg, Oral, DAILY, First dose on Sun12/01/21 at 0900, Until Discontinued 0855 (Given - Provid er: Stacy Conley RN) ferrous sulfate (FE TABS 325) EC tablet 325 mg 325 mg, Oral, DAILY WITH BREAKFAST, First dose on Sun12/01/21 at 0800, Until Discontinued 0855 (Given - Provid er: Stacy Conley RN) heparin (porcine) injection 10,000 Units (COMPLETED) 10,000 Units, IntraVENous, ONCE, 1 dose, On Sun11/30/21 at 2300, Initial one time bolus 2323 (Given - Provider: Casandra Maddox RN) labetalol (NORMODYNE) tablet 600 mg 600 mg, Oral, 4 TIMES DAILY, First dose on [facility] 12/01/21 at 0015, Until Discontinued 0124 (Given - Provid er: Afsaneh Oviedo RN)0856 (Given - Provider: Stacy Conley RN)1238 (Not Given - Provider: Stacy Conley RN - Reason: Patient/family refused)1511 (Given - Provider: Stacy Conley, LEANDRO)2100 (Due) morphine (PF) injection 2 mg (COMPLETED) 2 mg, IntraVENous, ONCE, 1 dose, On Sun11/30/21 at 2014, If oral and IV narcotics ordered, use oral first and only use IV if oral is ineffective or cannot take oral. Do Not give oral and IV within 1 hour of each other unless specifically ordered. 2026 (Given - Provider: Casandra Maddox RN) NIFEdipine (PROCARDIA XL) extended release tablet 90 mg 90 mg, Oral, DAILY, First dose on [place] 12/01/21 at 0900, Until Discontinued, Do not crush or break. 0855 (Given - Provid er: Stacy Conley RN) ondansetron (ZOFRAN) injection 4 mg (COMPLETED) 4 mg, IntraVENous, ONCE, 1 dose, On Sun11/30/21 at 2014 2026 (Given - Provider: Casandra Maddox RN) rivaroxaban (XARELTO) tablet 15 mg(Linked Group 1) ANTICOAGULANT! Renal dose for NONVALVULAR A.FIB is 15 mg/day for CrCl 15-50 mL/min., 15 mg, Oral, 2 TIMES DAILY WITH MEALS, 41 doses, First dose on Sun12/01/21 at 1700, Last dose on Sun12/21/21 at 1700, ANTICOAGULANT! Doses greater than 15 mg/day must be administered with food. 1700 (Due) rivaroxaban (XARELTO) tablet 20 mg(Linked Group 1) ANTICOAGULANT! Renal dose for NONVALVULAR A.FIB is 15 mg/day for CrCl 15-50 mL/min., 20 mg, Oral, DAILY WITH DINNER, First dose on [facility] 12/22/21 at 0800, Until Discontinued, ANTICOAGULANT! Doses greater than 15 mg/day must be administered with food. sodium chloride flush 0.9 % injection 5-40 mL 5-40 mL, IntraVENous, EVERY 12 HOURS SCHEDULED (2 times per day), First dose on [facility] 12/01/21 at 0900, Until Discontinued, For Line Patency: Peripheral IV = 5 mL; Midline or Central Line = 10 mL/lumen. If following IV push medication, administer flush at same rate as the IV push. Flush volume is determined by type of infusion therapy being given. For non-viscous solutions use: Peripheral IV = 5 mL Midline or Central Line = 10 mL/lumen For viscous solutions (i.e. blood components, parenteral nutrition, contrast media, or after obtaining blood sample) use: Peripheral IV = 10 mL Midline or Central Line = 20 mL/lumen 0900 (Not Given - Provider: Stacy Conley RN - Reason: IV Fluid Infusing)2100 (Due) Continuous Medication Order 11/29/2021 11/30/2021 12/01/2021 heparin 25,000 units in dextrose 5% 250 mL (premix) infusion (CANCELED) 5-30 Units/kg/hr 126.6 kg (6.33-37.98 mL/hr, rounded to 6.3-38 mL/hr), IntraVENous, CONTINUOUS, Starting on Sun11/30/21 at 2300, Until [facility] 12/01/21 at 0103, Initial dose 16.6 units/kg/hr Heparin Weight-Based Infusion: VTE/DVT/PE (Xa Monitoring) Initial dose is 16.6 units/kg/hr. WARNING Patient weight EXCEEDS max initial dose of 2100 units/hr. Please recalculate patient weight based initial dose. Recorded patient weight: 126.6 kg. Start at: 80 units/kg IV bolus x 1 (max 10,000 units), then 18 units/kg/hr (max initial rate 2100 units/hr) = 16.6 units/kg/hr. Adjust infusion rate based on Anti-Xa results (target range 0.3-0.7). For titration purposes, continue to use the initial weight of 126.6 kg for adjustments. Anti-Xa < 0.1 Heparin 80 units/kg (max 10,000 units) bolus, then increase infusion by 4 units/kg/hr Anti-Xa 0.1 - 0.29 Heparin 40 units/kg (max 5,000 units) bolus, then increase infusion by 2 units/kg/hr Anti-Xa 0.3 - 0.7 No bolus No change in rate Anti-Xa 0.71-0.8 No bolus Decrease infusion by 1 units/kg/hr Anti-Xa 0.81 - 0.99 No bolus Decrease infusion by 2 units/kg/hr Anti-Xa 1 unit/mL or greater Hold heparin for 60 min , then decrease infusion by 3 units/kg/hr from previous rate (no bolus for restart) Check Anti-Xa 6 hours after initiation and 6 hours after every dose change. When Anti-Xa is within target range for two consecutive times, check Anti-Xa once daily. *80 units/kg bolus max= 10,000 units *40 units/kg bolus max= 5,000 units, (for bolus doses, use patient's current weight) 2326 (New Bag - Provider: Casandra Maddox RN) heparin 25,000 units in dextrose 5% 250 mL (premix) infusion (CANCELED) 5-30 Units/kg/hr 126.6 kg (6.33-37.98 mL/hr, rounded to 6.3-38 mL/hr), IntraVENous, CONTINUOUS, Starting on [facility] 12/01/21 at 0015, Until [facility] 12/01/21 at 0837, Initial dose 16.6 units/kg/hr Heparin Weight-Based Infusion: VTE/DVT/PE (Xa Monitoring) Initial dose is 16.6 units/kg/hr. WARNING Patient weight EXCEEDS max initial dose of 2100 units/hr. Please recalculate patient weight based initial dose. Recorded patient weight: 126.6 kg. Start at: 80 units/kg IV bolus x 1 (max 10,000 units), then 18 units/kg/hr (max initial rate 2100 units/hr) = 16.6 units/kg/hr. Adjust infusion rate based on Anti-Xa results (target range 0.3-0.7). For titration purposes, continue to use the initial weight of 126.6 kg for adjustments. Anti-Xa < 0.1 Heparin 80 units/kg (max 10,000 units) bolus, then increase infusion by 4 units/kg/hr Anti-Xa 0.1 - 0.29 Heparin 40 units/kg (max 5,000 units) bolus, then increase infusion by 2 units/kg/hr Anti-Xa 0.3 - 0.7 No bolus No change in rate Anti-Xa 0.71-0.8 No bolus Decrease infusion by 1 units/kg/hr Anti-Xa 0.81 - 0.99 No bolus Decrease infusion by 2 units/kg/hr Anti-Xa 1 unit/mL or greater Hold heparin for 60 min , then decrease infusion by 3 units/kg/hr from previous rate (no bolus for restart) Check Anti-Xa 6 hours after initiation and 6 hours after every dose change. When Anti-Xa is within target range for two consecutive times, check Anti-Xa once daily. *80 units/kg bolus max= 10,000 units *40 units/kg bolus max= 5,000 units, (for bolus doses, use patient's current weight) . 0125 (Rate/Dose Veri fy - Provider: Afsaneh Oviedo RN)0730 (Rate/Dose Verify - Provider: Stacy Conley, LEANDRO)0853 (Stopped - Provider: Stacy Conley, LEANDRO) PRN Medication Order 11/29/2021 11/30/2021 12/01/2021 0.9 % sodium chloride infusion 25 mL, IntraVENous, at 100 mL/hr, PRN, If patient receiving piggyback infusions without ordered maintenance IV fluids or with frequent/long duration piggyback infusions, Starting on Sun11/30/21 at 2358, Administer at the same rate as the piggyback being infused. acetaminophen (TYLENOL) suppository 650 mg(Linked Group 2) 650 mg, Rectal, EVERY 6 HOURS PRN, Starting on Sun11/30/21 at 2358, Until Discontinued, Pain Mild (1-3), Fever, For temp greater than 100.4 F (38 C), Administer if oral route cannot be used. acetaminophen (TYLENOL) tablet 650 mg(Linked Group 2) 650 mg, Oral, EVERY 6 HOURS PRN, Starting on Sun11/30/21 at 2358, Until Discontinued, Pain Mild (1-3), Fever, For temp greater than 100.4 F (38 C), Maximum dose of acetaminophen is 4000 mg from all sources in 24 hours. iopamidol (ISOVUE-370) 76 % injection 75 mL (COMPLETED) 75 mL, IntraVENous, IMG ONCE PRN, 1 dose, Starting on Sun11/30/21 at 2140, Until Sun11/30/21 at 2213, Other 2213 (Given - Provider: Juhi Yuan) magnesium hydroxide (MILK OF MAGNESIA) 400 MG/5ML suspension 30 mL 30 mL, Oral, DAILY PRN, Starting on Sun11/30/21 at 2358, Until Discontinued, Constipation, First line therapy for constipation. magnesium sulfate 1000 mg in dextrose 5% 100 mL IVPB 1,000 mg, IntraVENous, at 100 mL/hr, Administer over 1 Hours, PRN, Other, Per IV Magnesium Replacement Protocol, Starting on Sun11/30/21 at 2358, Mg Lab Replacement Action 1.4-1.6 1 gram IVPB x 2 doses (2 gram Total) 1.0-1.3 1 gram IVPB x 4 doses (4 gram Total) <1.0 CALL PHYSICIAN and 1 gram IVPB x 4 doses (4 gram Total) Infuse at 1 gram/hr Repeat Mag level next AM Protocol not for use in Patients with CrCl<30ml/min nitroGLYCERIN (NITROSTAT) SL tablet 0.4 mg 0.4 mg, SubLINGual, EVERY 5 MIN PRN, 3 doses, Starting on Sun11/30/21 at 2358, Until Discontinued, Chest pain, Place 1 tablet under tongue upon chest pain, wait 5 minutes and may repeat up to 3 doses in 15 minutes. Do not crush or break. ondansetron (ZOFRAN) injection 4 mg(Linked Group 3) 4 mg, IntraVENous, EVERY 6 HOURS PRN, Starting on Sun11/30/21 at 2358, Until Discontinued, Nausea, Vomiting, Administer if oral route cannot be used. ondansetron (ZOFRAN-ODT) disintegrating tablet 4 mg(Linked Group 3) 4 mg, Oral, EVERY 8 HOURS PRN, Starting on Sun11/30/21 at 2358, Until Discontinued, Nausea, Vomiting potassium bicarb-citric acid (EFFER-K) effervescent tablet 40 mEq(Linked Group 4) 40 mEq, Oral, PRN, Starting on Sun11/30/21 at 2358, Until Discontinued, Per Potassium Replacement Protocol, Administer as alternative if patient unable to tolerate oral tablet. K Lab Replacement Action 3.1 to 3.5 40 mEq ORAL x 1 Under 3.1 Refer to IV replacement protocol Recheck K level in AM. Protocol not for use in patients with CrCl less than 30 mL/min. Do not chew or crush. Dissolve flavored tablets completely in 3 to 4 ounces of cold water; unflavored tablets may be dissolved in 3 to 4 ounces of cold juice. Patient to sip slowly over a 5 to 10 minute period. May further dilute if GI adverse effects occur. potassium chloride (KLOR-CON M) extended release tablet 40 mEq(Linked Group 4) 40 mEq, Oral, PRN, Starting on Sun11/30/21 at 2358, Until Discontinued, Potassium Replacement, May give oral solution if patient unable to tolerate tablet. K Lab Replacement Action 3.1-3.5 40 mEq ORAL x 1 2.7-3.0 Refer to IV replacement orders < 2.7 Refer to IV replacement orders Recheck K level in AM. Not for use in patients with CrCl less than 30 mL/min. potassium chloride 10 mEq/100 mL IVPB (Peripheral Line)(Linked Group 4) 10 mEq, IntraVENous, PRN, Starting on Sun11/30/21 at 2358, Until Discontinued, at 100 mL/hr, Potassium Replacement, K Lab Replacement Action 2.7-3.0 10 mEq IVPB x 6 doses (60 mEq Total) < 2.7 CALL PHYSICIAN and 10 mEq IVPB x 6 doses (60 mEq Total) Infuse at 10 mEq/hr Repeat Potassium lab 1 hour after final administration. Not for use in patients with CrCl less than 30 mL/min. sodium chloride flush 0.9 % injection 10 mL (CANCELED) 10 mL, IntraVENous, PRN, Starting on Sun11/30/21 at 2140, Until [place] 12/01/21 at 0116, Line Care 2213 (Given - Provider: Juhi Yuan) sodium chloride flush 0.9 % injection 10 mL 10 mL, IntraVENous, PRN, Starting on Sun11/30/21 at 2358, Until Discontinued, Line Care, After every IV line use Linked Groups Order Group 1: rivaroxaban (XARELTO) tablet 15 mgJump to med ANTICOAGULANT! Renal dose for NONVALVULAR A.FIB is 15 mg/day for CrCl 15-50 mL/min.
15 mg, Oral, 2 TIMES DAILY WITH MEALS, 41 doses, First dose on [facility] 12/01/21 at 1700, Last dose on Sun12/21/21 at 1700
ANTICOAGULANT! Doses greater than 15 mg/day must be administered with food.
Followed by rivaroxaban (XARELTO) tablet 20 mgJump to med ANTICOAGULANT! Renal dose for NONVALVULAR A.FIB is 15 mg/day for CrCl 15-50 mL/min.
20 mg, Oral, DAILY WITH DINNER, First dose on [facility] 12/22/21 at 0800, Until Discontinued
ANTICOAGULANT! Doses greater than 15 mg/day must be administered with food.
Group 2: acetaminophen (TYLENOL) tablet 650 mgJump to med 650 mg, Oral, EVERY 6 HOURS PRN, Starting on Sun11/30/21 at 2358, Until Discontinued, Pain Mild (1-3), Fever, For temp greater than 100.4 F (38 C)
Maximum dose of acetaminophen is 4000 mg from all sources in 24 hours.
Or acetaminophen (TYLENOL) suppository 650 mgJump to med 650 mg, Rectal, EVERY 6 HOURS PRN, Starting on Sun11/30/21 at 2358, Until Discontinued, Pain Mild (1-3), Fever, For temp greater than 100.4 F (38 C)
Administer if oral route cannot be used.
Group 3: ondansetron (ZOFRAN-ODT) disintegrating tablet 4 mgJump to med 4 mg, Oral, EVERY 8 HOURS PRN, Starting on Sun11/30/21 at 2358, Until Discontinued, Nausea, Vomiting Or ondansetron (ZOFRAN) injection 4 mgJump to med 4 mg, IntraVENous, EVERY 6 HOURS PRN, Starting on Sun11/30/21 at 2358, Until Discontinued, Nausea, Vomiting
Administer if oral route cannot be used.
Group 4: potassium chloride (KLOR-CON M) extended release tablet 40 mEqJump to med 40 mEq, Oral, PRN, Starting on Sun11/30/21 at 2358, Until Discontinued, Potassium Replacement
May give oral solution if patient unable to tolerate tablet. K Lab Replacement Action 3.1-3.5 40 mEq ORAL x 1 & nbsp; 2.7-3.0 Refer to IV replacement orders < 2.7 Refer to IV replacement orders Recheck K level in AM. Not for use in patients with CrCl less than 30 mL/min.
Or potassium bicarb-citric acid (EFFER-K) effervescent tablet 40 mEqJump to med 40 mEq, Oral, PRN, Starting on Sun11/30/21 at 2358, Until Discontinued, Per Potassium Replacement Protocol
Administer as alternative if patient unable to tolerate oral tablet. K Lab Repla cemen t Action 3.1 to 3.5 40 mEq ORAL x 1 Under 3.1 Refer to IV replacement protocol Recheck K level in AM. Protocol not for use in patients with CrCl less than 30 mL/min. Do not chew or crush. Dissolve flavored tablets completely in 3 to 4 ounces of cold water; unflavored tablets may be dissolved in 3 to 4 ounces of cold juice. Patient to sip slowly over a 5 to 10 minute period. May further dilute if GI adverse effects occur.
Or potassium chloride 10 mEq/100 mL IVPB (Peripheral Line)Jump to med 10 mEq, IntraVENous, PRN, Starting on Sun11/30/21 at 2358, Until Discontinued, at 100 mL/hr, Potassium Replacement
K Lab Replacement Action 2.7-3.0 10 mEq IVPB x 6 doses (60 mEq Total) < 2.7 CALL PHYSICIAN and 10 mEq IVPB x 6 doses (60 mEq Total) Infuse at 10 mEq/hr Repeat Potassium lab 1 hour after final administration. Not for use in patients with CrCl less than 30 mL/min.
Scheduled Medication Order 12/03/2021 12/04/2021 12/05/2021 HYDROcodone-acetaminophen (NORCO) 5-325 MG per tablet 1 tablet (COMPLETED) 1 tablet, Oral, ONCE, 1 dose, On Sun12/05/21 at 1600, Maximum dose of acetaminophen is 4000 mg from all sources in 24 hours. 1604 (Given - Provid er: Leatha Larsen RN) Scheduled Medication Order 04/22/2024 04/23/2024 04/24/2024 acetaminophen (TYLENOL EXTRA STRENGTH) tablet 1,000 mg (COMPLETED) 1,000 mg, oral, Once, On Sun04/23/24 at 0800, For 1 dose, Pre-op 0830 (Given - Provider: Essence Schulz RN) aprepitant (EMEND) capsule 40 mg (COMPLETED) 40 mg, oral, Once, On Sun04/23/24 at 0800, For 1 dose, Pre-op 0831 (Given - Provider: Essence Schulz RN) busPIRone (BUSPAR) tablet 15 mg 15 mg, oral, 2 times daily, First dose on Sun04/23/24 at 2100, Look-alike/sound-alike medication - verify indication for use. Avoid grapefruit juice. 2124 (Given - Provider: Macrina Armenta RN) 37 (Given - Provider: Olga Montana RN) ceFAZolin (ANCEF) 3,000 mg in sodium chloride 0.9 % 100 mL IVPB-MBP 3,000 mg, intravenous, at 200 mL/hr, Administer over 30 Minutes, Once, On Sun04/23/24 at 0845, For 1 dose, ADD-VANTAGE/MBP- Discard 24 hours after activating; dissolve drug prior to administration, Indication: Surgical prophylaxis 0845 (Due) citalopram (CeleXA) tablet 20 mg 20 mg, oral, Nightly, First dose on Sun04/23/24 at 2200, Look-alike/sound-alike medication - verify indication for use., Indications: anxiety with depression 2124 (Given - Provider: Macrina Armenta, RN) enoxaparin (LOVENOX) syringe 40 mg 40 mg, subcutaneous, Every 12 hours scheduled, First dose on Sun04/24/24 at 0600, BMI greater than 40 Look-alike/sound-alike medication - verify indication for use. 0613 (Given - Provid er: Macrina Armenta RN) heparin (porcine) injection 5,000 Units (COMPLETED) 5,000 Units, subcutaneous, Once, On Sun04/23/24 at 0845, For 1 dose, Look-alike/sound-alike medication - verify indication for use. Observe for bleeding. 0851 (Given - Provider: Essence Schulz RN) hyoscyamine sulfate (LEVSIN) tablet 125 mcg 125 mcg, sublingual, 4 times daily, First dose on Sun04/23/24 at 1200 1324 (Given - Provider: Marielos Crocker RN)1715 (Given - Provider: Staci Dey RN)2125 (Given - Provider: Macrina Armenta RN) 0837 (Given - Provider: Olga Montana, LEANDRO)1310 (Given - Provider: Olga Montana, LEANDOR) ketorolac (TORADOL) injection 15 mg 15 mg, intravenous, Every 6 hours, First dose on Sun04/23/24 at 1500, For 5 days, Patients 65 years or older or weigh less than 50 kg. Hold for patients 80 or older. Maximum of 20 doses. Look-alike/sound-alike medication - verify indication for use. Duration of therapy is not to exceed 5 days. Maximum recommended dose + 120mg/24 hours. 1444 (Given - Provider: Staci Dey RN)2125 (Given - Provider: Macrina Armenta, RN) 0324 (Given - Provider: Macrina Armenta RN)0837 (Given - Provider: Olga Montana RN) lisinopriL (PRINIVIL,ZESTRIL) tablet 10 mg 10 mg, oral, Daily, First dose on Sun04/24/24 at 0900, Look-alike/sound-alike medication - verify indication for use. 0837 (Given - Provid er: Ogla Montana RN) pantoprazole (PROTONIX) EC tablet 40 mg 40 mg, oral, Daily, First dose on Sun04/23/24 at 1500, Look-alike/sound-alike medication - verify indication for use. If patient is receiving enteral feeding, consider alternative PPI or continue IV pantoprazole until the delayed-release tablet can be taken orally, Indication: GERD 5 (Given - Provider: Macrina Armenta, RN) 0613 (Given - Provider: Macrina Armenta RN) thiamine (B-1) 100 mg, folic acid (FOLVITE) 1 mg in sodium chloride 0.9 % 50 mL IVPB (COMPLETED) intravenous, at 102 mL/hr, Administer over 30 Minutes, Once, On Sun04/23/24 at 1130, For 1 dose, PACU (only), Look-alike/sound-alike medication - verify indication for use. 1238 (New Bag - Provider: Marielos Crocker RN)1308 (Stop Bag - Provider: Marielos Crocker RN) Continuous Medication Order 04/22/2024 04/23/2024 04/24/2024 lactated ringers infusion (CANCELED) 50 mL/hr, intravenous, Continuous, Starting on Sun04/23/24 at 0800, Pre-op, If fluid restriction is not indicated, infuse at a rate up to 5 mL/kg/hr not to exceed the total replacement volume (2 ml/kg/hr) from the time NPO status was initiated. 0833 (New Bag - Provider: Essence Schulz RN)2009 (Stop Bag - Provider: Macrina Armenta RN) lactated ringers infusion 100 mL/hr, intravenous, Continuous, Starting on Sun04/23/24 at 1415 1444 (New Bag - Provider: Staci Dey RN)1849 (Rate/Dose Verify - Provider: Staci Dey RN)2009 (Rate/Dose Verify - Provider: Macrina Armenta, RN)2240 (Rate/Dose Verify - Provider: Macrina Armenta, RN) 0012 (New Bag - Provider: Cherise Choudhury RN)0955 (New Bag - Provider: Olga Montana RN) PRN Medication Order 04/22/2024 04/23/2024 04/24/2024 albuterol (PROVENTIL,VENTOLIN) nebulizer solution 2.5 mg 2.5 mg, nebulization, Every 6 hours PRN, wheezing, shortness of breath, Starting on Sun04/23/24 at 1412, Implement INPATIENT/ED Bronchodilator Clinical Practice Guidelines? Yes, Document: [email or web address]\[email or web address]\EP IC_Reference\Orders\Respirat ory Care Guidelines\CPG Bronchodilator 2019.pdf bupivacaine PF (MARCAINE) 0.5 % (5 mg/mL) injection (CANCELED) As needed, Starting on Sun04/23/24 at 0951, Intra-op 0934 (Given - Provider: Tonia Manzo MD) dextrose (GLUTOSE) 40 % gel 15 g 15 g, oral, As needed, low blood sugar, blood glucose less than 70 mg/dL, Starting on Sun04/23/24 at 1412, If patient conscious and taking PO. If blood glucose is not greater than 70 mg/dL after initial treatment, repeat treatment. dextrose 5 % (D5W) infusion 100 mL/hr, intravenous, Continuous PRN, blood glucose less than 70 mg/dL, Starting on Sun04/23/24 at 1412, Use immediately following dextrose 50% or glucagon treatment for patients who are unconscious or NPO. Contact prescriber for additional orders. If blood glucose is not greater than 70 mg/dL after initial treatment, repeat treatment. dextrose 50 % in water (D50W) 50% solution 25 mL 25 mL, intravenous, As needed, low blood sugar, blood glucose less than 70 mg/dL and unconscious or NPO with IV access, Starting on Sun04/23/24 at 1412, Push over 1-3 minutes STAT. If conscious and not NPO, immediately follow with meal tray or high protein (7 grams) snack if tray not available. If NPO, initiate 5% dextrose in water at 100 mL/hr and contact prescriber for additional orders. If blood glucose is not greater than 70 mg/dL after initial treatment, repeat treatment. VESICANT (RED) Warning: HYPERTONIC solution. fentaNYL (SUBLIMAZE) injection 50 mcg (CANCELED) 50 mcg, intravenous, Every 5 min PRN, Pain Scale 6-10, Starting on Sun04/23/24 at 1058, PACU (only), Up to a maximum dose of 150 mcg. Look-alike/sound-alike medication - verify indication for use. 1121 (Given - Provider: Marielos Crocker RN)1341 (Given - Provider: Marielos Crocker RN) glucagon HCL injection 1 mg 1 mg, intramuscular, As needed, low blood sugar, blood glucose less than 70 mg/dL and unconscious or NPO without IV access., Starting on Sun04/23/24 at 1412, If conscious and not NPO, immediately follow with meal tray or high protein (7Grams) snack if tray not available. If NPO, initiate IV 5% Dextrose/Water at 100 mL/hr and contact prescriber for additional orders. If blood glucose is not greater than 70 mg/dL after initial treatment, repeat treatment. morphine injection 4 mg 4 mg, intravenous, Every 2 hour PRN, pain unresponsive to oral pain medication or breakthrough pain, Starting on Sun04/23/24 at 1412, Look-alike/sound-alike medication - verify indication for use. ondansetron (PF) (ZOFRAN) injection 4 mg 4 mg, intravenous, Every 4 hours PRN, nausea, vomiting, Starting on Sun04/23/24 at 1412, Administer over 2-5 minutes. oxyCODONE (ROXICODONE) immediate release tablet 10 mg (CANCELED)(Linked Group 1) 10 mg, oral, Every 4 hours PRN, severe pain - pain scale 7-10, Starting on Sun04/23/24 at 1058, PACU (only), Look-alike/sound-alike medication - verify indication for use. Immediate release. 1323 (Given - Provider: Marielos Crocker RN) oxyCODONE-acetaminophen (PERCOCET) 5-325 mg per tablet 1 tablet 1 tablet, oral, Every 4 hours PRN, moderate pain - pain scale 4-6, Starting on Sun04/23/24 at 1412, Look-alike/sound-alike medication - verify indication for use. 2023 (Given - Provider: Macrina Armenta RN) oxyCODONE-acetaminophen (PERCOCET) 5-325 mg per tablet 2 tablet 2 tablet, oral, Every 4 hours PRN, severe pain - pain scale 7-10, Starting on Sun04/23/24 at 1412, Look-alike/sound-alike medication - verify indication for use. 1310 (Given - Provid er: Olga Montana RN) prochlorperazine (COMPAZINE) injection 5 mg 5 mg, intravenous, Every 6 hours PRN, nausea, vomiting, Starting on Sun04/23/24 at 1412, When administered via IV Push, do not exceed 5 mg per minute sodium chloride 0.9% (NS) irrigation bottle (CANCELED) As needed, Starting on Sun04/23/24 at 0925, Intra-op 0925 (Given - Provider: Tonia Manzo MD - Comment: GIVEN TO STERILE FI[employer]) Linked Groups Order Group 1: oxyCODONE (ROXICODONE) immediate release tablet 5 mg (CANCELED) 5 mg, oral, Every 4 hours PRN, pain scale 1-6, Starting on Sun04/23/24 at 1058, PACU (only), Look-alike/sound-alike medication - verify indication for use. Immediate release. Or oxyCODONE (ROXICODONE) immediate release tablet 10 mg (CANCELED)Jump to med 10 mg, oral, Every 4 hours PRN, severe pain - pain scale 7-10, Starting on Sun04/23/24 at 1058, PACU (only), Look-alike/sound-alike medication - verify indication for use. Immediate release. Ordered Prescriptions (unrec ognized section and content) Prescription Sig Dispensed Refills Start Date End Da te labetalol (NORMODYNE) 300 MG tablet Take 2 tablets by mouth 4 times daily 60 tablet 3 11/28/2021 NIFEdipine (PROCARDIA XL) 90 MG extended release tablet Take 1 tablet by mouth daily 30 tablet 3 11/28/2021 citalopram (CELEXA) 10 MG tablet Take 1 tablet by mouth daily 30 tablet 3 11/27/2021 NIFEdipine (PROCARDIA XL) 60 MG extended release tablet Take 1 tablet by mouth daily 30 tablet 3 11/28/2021 11/28/2021 labetalol (NORMODYNE) 300 MG tablet Take 2 tablets by mouth in the morning, at noon, and at bedtime 60 tablet 3 11/28/2021 11/28/2021 NIFEdipine (PROCARDIA XL) 30 MG extended release tablet Take 1 tablet by mouth daily 30 tablet 1 11/27/2021 11/28/2021 labetalol (NORMODYNE) 200 MG tablet Take 3 tablets by mouth in the morning, at noon, and at bedtime 120 tablet 1 11/27/2021 11/28/2021 Prescription Sig Dispensed Refills Start Date End Da te rivaroxaban 15 & 20 MG Starter Pack Take as directed on package. 1 each 0 12/01/2021 apixaban starter pack (ELIQUIS DVT/PE STARTER PACK) 5 MG TBPK tablet Take 1 tablet by mouth See Admin Instructions 74 tablet 0 12/01/2021 12/01/2021 Care Teams (unrecognized sec tion and content) Retrimmer Relationship Specialty Start Date End Date Riddhi Plata MD [address] [place] [address] PCP - General Family Medicine 01/16/23 Retrimmer Relationship Specialty Start Date End Date Riddhi Plata MD [address] [facility] [place] [address] PCP - General Family Medicine 01/16/23 Retrimmer Relationship Specialty Start Date End Date Riddhi Plata MD [address] [facility] [place] [address] PCP - General Family Medicine 01/16/23 Retrimmer Relationship Specialty Start Date End Date Riddhi Plata MD [address] [facility] [place] [address] PCP - General Family Medicine 01/16/23 Retrimmer Relationship Specialty Start Date End Date Riddhi Plata MD [address] [place] [address] PCP - General Family Medicine 06/27/22 Retrimmer Relationship Specialty Start Date End Date Riddhi Plata MD [address] [place] [address] PCP - General Family Medicine 12/09/23 Retrimmer Relationship Specialty Start Date End Date Riddhi Plata MD [address] [facility] [place] [address] PCP - General Family Medicine 12/09/23 Retrimmer Relationship Specialty Start Date End Date Riddhi Plata MD [address] [facility] [place] [address] PCP - General Family Medicine 06/27/22 Retrimmer Relationship Specialty Start Date End Date Riddhi Plata MD [address] [facility] [place] [address] PCP - General Family Medicine 06/27/22 Retrimmer Relationship Specialty Start Date End Date Riddhi Plata MD [address] [facility] [place] [address] PCP - General Family Medicine 06/27/22 Retrimmer Relationship Specialty Start Date End Date Riddhi Plata MD [address] [facility] [place] [address] PCP - General Family Medicine 06/27/22 Retrimmer Relationship Specialty Start Date End Date Riddhi Plata MD [address] [facility] [place] [address] PCP - General Family Medicine 06/27/22 Retrimmer Relationship Specialty Start Date End Date Riddhi Plata MD [address] [facility] [place] [address] PCP - General Family Medicine 12/09/23 Retrimmer Relationship Specialty Start Date End Date Riddhi Plata MD [address] [place] [address] PCP - General Family Medicine 12/09/23 Retrimmer Relationship Specialty Start Date End Date Riddhi Plata MD [address] [place] [address] PCP - General Family Medicine 12/09/23 Retrimmer Relationship Specialty Start Date End Date Riddhi Plata MD [address] [place] [address] PCP - General Family Medicine 12/09/23 Retrimmer Relationship Specialty Start Date End Date Riddhi Plata MD [address] [place] [address] PCP - General Family Medicine 06/27/22 Retrimmer Relationship Specialty Start Date End Date Riddhi Plata MD [address] [place] [address] PCP - General Family Medicine 12/09/23 Retrimmer Relationship Specialty Start Date End Date Riddhi Plata MD [address] [place] [address] PCP - General Family Medicine 06/27/22 Retrimmer Relationship Specialty Start Date End Date Riddhi Plata MD [address] [place] [address] PCP - General Family Medicine 12/09/23 Retrimmer Relationship Specialty Start Date End Date Riddhi Plata MD [address] [place] [address] PCP - General Family Medicine 12/09/23 Retrimmer Relationship Specialty Start Date End Date Riddhi Plata MD PCP - General Family Medicine 12/09/23 Retrimmer Relationship Specialty Start Date End Date Riddhi Plata MD PCP - General Family Medicine 12/09/23 Retrimmer Relationship Specialty Start Date End Date Riddhi Plata MD PCP - General Family Medicine 12/09/23 Retrimmer Relationship Specialty Start Date End Date Riddhi Plata MD PCP - General Family Medicine 12/09/23 Retrimmer Relationship Specialty Start Date End Date Riddhi Plata MD PCP - General Family Medicine 12/09/23 Retrimmer Relationship Specialty Start Date End Date Riddhi Plata MD PCP - General Family Medicine 12/09/23 Retrimmer Relationship Specialty Start Date End Date Riddhi Plata MD PCP - General Family Medicine 12/09/23 Retrimmer Relationship Specialty Start Date End Date Riddhi Plata MD PCP - General Family Medicine 12/09/23 Retrimmer Relationship Specialty Start Date End Date Riddhi Plata MD [address] [place] [address] PCP - General Family Medicine 01/16/23 FOR RECORDS PERTAINING TO PATIENTS WHO ARE OR HAVE BEEN ENROLLED IN A CHEMICAL DEPENDENCY/SUBSTANCEABUSE PROGRAM, SOME INFORMATION MAY BE OMITTED. This clinical summary was aggregated from multiple sources. Caution should be exercised in using it in the provision of clinical care. This summary normalizes information from multiple sources, and as a consequence, information in this document may materially change the coding, format and clinical context of patient data. In addition, data may be omitted in some cases. CLINICAL DECISIONS SHOULD BE BASED ON THE PRIMARY CLINICAL RECORDS. [facility]. provides no warranty or guarantee of the accuracy or completeness of information in this document.
[2025-03-25 08:43] LABS: Hematocrit 36.5 % (36.0-48.0); Hemoglobin 12.3 g/dL (12.0-16.0); Immature Granulocytes Abs Auto 0.04 10^3/uL (0.00-0.03); Immature Granulocytes Pct Auto 0.3 % (0.0-0.5); Lymphocytes Absolute Auto 3.0 10^3/uL (1.2-3.8); Mean Corpuscular HGB Conc 33.7 g/dL (29.9-35.2); Mean Corpuscular Hemoglobin 29.4 pg (26.7-34.0); Mean Corpuscular Volume 87.1 fL (81.0-99.0); Platelet Count 243 10^3/uL (150-450); Red Blood Count 4.19 10^6/uL (4.20-5.40); White Blood Count 12.4 10^3/uL (4.0-11.0)
[2025-03-25 08:54] LABS: Cannabinoid Screen Urine NEGATIVE (NEGATIVE); Methamphetamines Screen Urine NEGATIVE (NEGATIVE); Tricyclic Antidepressant Urine NEGATIVE (NEGATIVE)
[2025-03-26 05:10] LABS: Rubella Antibodies, IgG 1.59 index (Immune >0.99)
[2025-03-26 12:08] LABS: Rapid Plasma Reagin, Quant Non Reactive titer (NonRea<1:1)
== END 2025-03-25 07:47 | disposition home or self-care (01) ==
LOC: LAB 07:48
PROVIDERS: PCP Family Medicine; Visit Provider Obstetrics & Gynecology
DX: Z34.01 Encounter for supervision of normal first pregnancy, first trimester (principal); N92.6 Irregular menstruation, unspecified
CPT/HCPCS: 36415; 80307; 83036; 85025; 86592; 86762; 86803; 86850; 86900; 86901; 87086; 87340; 87389

== ENCOUNTER 2025-04-12 18:45 | Emergency (ER) | payer OTHER, SELFPAY ==
[2025-04-12 18:48] VITALS: BP 142/88; PULSE 61; TEMP 36.6; O2SAT 100; BMI 42.9
--- OUTSIDE RECORDS SUMMARY | 2025-04-12 18:51 | XMS_ITS | CCD ---
Author Organization [facility] Care Team Providers Care Head Charger Name Role Phone PHYSICIAN, DEFAULT Admitting Unavailable [...] RIDDHI F Primary Care Unavailable Boni GUERRERO, [facility] Primary Care Provider Boni GUERRERO, [facility] Primary Care Provider Boni GUERRERO, [facility] Primary Care Provider Boni GUERRERO, [facility] Primary Care Provider [phone] Boni GUERRERO, [facility] Primary Care Provider LES DIANE Attending Unavailable [...] Care Unavailable TONIA MANZO Attending Unavailable TONIA MNAZO Referring Unavailable BONI, RIDDHI F Primary Care [...] Facility (4 sources) [facility] Allergy 11-29-2021 [facility] DDN (20 sources) SUMAtriptan; Translations: [SUMATRIPTAN] Drug Allergy 11-28-2018 Anaphylaxis, Unknown, Other (See Comments) [employer] Work Phone: Medications Current Medications Medication Drug [...] (BMI) of 60.0 to 69.9 in adult ([facility]) , History of pulmonary embolism Inject 0.4 [...] (BMI) of 60.0 to 69.9 in adult ([facility]) , History of pulmonary embolism Inject 0.4 [...] CrCl<30ml/min Start: 11-26-2021 End: 11-26-2021 magnesium sulfate (36048 mg/ 500mL infusion) Start: 11-25-2021 End: 11-27-2021 [...] (Stop Taking at Discharge) Start: 11-28-2021 NIFEdipine (AR OCARDIA XL) extended release tablet 90 mg [...] Active ondansetron 4 mg disintegrating oral tablet (16 sources) Serotonin-3 Receptor Antagonist Start: 03-20-2025 End: 04-19-2025 take 1 tablet by mouth every six hours for nausea ondansetron ODT (Zofran-ODT) 4 MG disintegrating tablet Indications: , unspecified gestational age ([facility]) , Nausea Take 1 tablet (4 mg) [...] Vit-Fe Fumarate-FA ( Vitamins) 28-0.8 MG tablet (2 sources) Start: 03-20-2025 End: 03-20-2026 take 1 tablet by mouth once daily Vit-Fe Fumarate-FA ( Vitamins) 28-0.8 MG tablet Indications: , unspecified gestational age ([facility]) , Encounter for supervision of normal first in first trimester ([facility]) Take 1 tablet by mouth Daily [...] Start: 05-30-2023 End: 03-20-2025 D3-50 1.25 MG (36270 UT) cap mimi 05/30/2023 03/20/2025 Discontinued cyclobenzaprine [...] use. vitamin b12 1 mg/ml injectable solution (14 sources) Vitamin B12 Start: 01-01-2025 End: 01-01-2025 [...] Date Documented Da te Episodic/Chronic Adjustment disorders (13 sources) Adjustment disorder with anxious mood; Translations: [Adjustment disorder with anxiety] Onset: 2 11-30-2021 Chronic Anxiety disorders (11 sources) Anxiety; Translations: [Anxiety disorder, unspecified] Onset: [...] contraceptive device] Onset: 3 Episodic Esophageal disorders (11 sources) Gastroesophageal reflux disease; Translations: [Gastro-esophageal reflux disease without esophagitis] Onset: 0 05-17-2023 Chronic Essential hypertension (12 sources) Essential hypertension; Translations: [Essential (primary) hypertension] [...] [Irregular periods] Onset: 2 Chronic Mood disorders (15 sources) Depressive disorder; Translations: [Depression] Onset: 9 Chronic Nutritional deficiencies (4 sources) Vitamin D deficiency; Translations: [Vitamin D deficiency, unspecified] Onset: 4 08-25-2024 Chronic Nutritional deficiencies (3 sources) Cobalamin deficiency; Translations: [Deficiency of other specified B group vitamins] Onset: 5 06-04-2024 Episodic Other aftercare (1 source) Other fci (current) drug therapy; Translations: [OTH MCC CURRENT DRUG THERAPY] Onset: 3 Episodic Other complications of ; puerperium affecting management of mother (1 source) Obesity complicating childbirth; Translations: [OBESITY COMPLICATING CHILDBIRTH] Onset: 2 Chronic Other endocrine disorders (11 sources) Polycystic ovary syndrome; Translations: [Polycystic ovarian [...] Chronic Other nutritional; endocrine; and metabolic disorders (12 sources) Body mass index 40+ - severely [...] 2 03-20-2025 Episodic Other upper respiratory disease (11 sources) Allergic rhinitis due to pollen; Translations: [...] sources) Backache Onset: 5 Episodic Thyroid disorders (14 sources) Thyroid nodule; Translations: [Nontoxic single thyroid nodule] Onset: 3 Chronic Unclassified (1 source) PERSONAL HISTORY OF COVID-19; Translations: [PERSONAL HISTORY OF COVID-19] Onset: 2 Unclassified (1 source) CONTACT W/AND (SUSP) EXPOS COVID-19; Translations: [CONTACT W/AND (SUSP) EXPOS COVID-19] Onset: 2 Unclassified (11 sources) Patient on antidepressant monitoring plan Onset: 4 02-01-2024 Unclassified (11 sources) Baseline PHQ-9 Onset: 4 02-01-2024 Unclassified [...] 02-07-2024 08-30-2023 Episodic Deficiency and other anemia (15 sources) Anemia; Translations: [Anemia, unspecified] Onset: 06-26-2019 Episodic Deficiency and other anemia (13 sources) Iron deficiency anemia; Translations: [Iron deficiency anemia, unspecified] Onset: 12-29-2019 05-17-2023 Episodic Diabetes or abnormal glucose tolerance complicating ; childbirth; or the puerperium (20 sources) Gestational diabetes mellitus; Translations: [Gestational diabetes mellitus in , unspecified control] Onset: 12-09-2018 Resolved: 04-24-2024 Episodic Headache; including migraine (11 sources) Frequent headache; Translations: [Frequent headaches] Onset: [...] Mood disorders Onset: 12-24-2018 Resolved: 04-23-2024 12-24-2018 Nausea and vomiting (14 sources) Nausea and vomiting; Translations: [Nausea with vomiting, unspecified] Onset: 05-17-2023 05-17-2023 Episodic Other endocrine disorders (11 sources) Disorder of endocrine system; Translations: [Endocrine [...] pulmonale] Onset: 03-17-2022 Episodic Residual codes; unclassified (15 sources) FH: Diabetes in ; Translations: [Family [...] ] Onset: 11-18-2021 Episodic Residual codes; unclassified (11 sources) Amnesia; Translations: [Other amnesia] Onset: 05-17-2023 [...] reason] Onset: 03-27-2024 Episodic Urinary tract infections (13 sources) Urinary tract infectious disease; Translations: [Urinary tract infection, site not specified] Onset: 05-17-2023 05-17-2023 Episodic Results Test Name Value Interpretation Reference Range Facility BOX TESTon 03-25-2025 [facility] BOX1 [facility] [employer] BOX2 03/25/25 [facility] [employer] [facility] DDNcar e HCG ( test) Ql (U)o n 03-20-2025 Interpretation and review of laboratory results Normal [facility] Preg Test, Ur Positive Negative [facility] US OB TRANSVAGINALon 025 US OB TRANSVAGINAL FINDINGS: [...] UA Negative Negative - 4(70) +++ mg/dL [facility] Blood, UA Negative Negative - 50 Raul/mcL [facility] Clarity, UA Clear [facility] DDNoh re Color, UA Yellow [facility] [employer] Glucose, UA Negative Negative - 2000(110) ++++ mg/dL [facility] Interpretation and review of laboratory results Normal [facility] Ketones, UA Negative Negative - 160(16) ++++ mg/dL [facility] Leukocytes, UA Trace Negative - 500+++ Ramo/mcL [facility] Nitrite, UA Negative Negative - Positive [facility] pH, UA 6 5 - 9 [facility] Health[facility] Protein, UA Negative Negative - 2000(20) ++++ mg/dL [facility] Spec Grav, UA 1.02 1 - 1.03 [facility] Urobilinogen, UA 2.0 0.2 - 12 mg/dL [facility] CBC AND AUTO DIFFon 01-02-20 ABSOLUTE BASOPHIL 0.1 X10E9/L Normal 0.0-0.2 [facility] Comment on above: Performed By: #### C BCA, FEPR, LIVR, 6-4, 9, 8, 13646-4 #### [facility] ([id number]) [address] [place] [address], [address] [address] #### 50759-7 #### [facility] ([id number]) [address] [place] [address] 41682 ABSOLUTE NEUTROPHIL 6.0 X10E9/L Normal 1.5-6.6 [facility] Comment on above: Performed By: #### C BCA, FEPR, LIVR, 6-4, 9, 2284-04, 18608-4 #### [facility] ([id number]) [address] [place] [address], [address] [place] [address] #### 41356-5 #### [facility] ([id number]) [address] [place] [address]781 Basophils/100 WBC (Bld) 0.7 % Normal [facility] Comment on above: Performed By: #### C BCA, FEPR, LIVR, 6-4, 9, 8, 62214-8 #### [facility] ([id number]) [address], [address] [place] [address] #### 82088-3 #### [facility] ([id number]) [address] [place] [address] 26825 Eosinophils (Bld) [#/Vol] 0.1 10*3/uL Normal 0.0-0.4 [facility] Comment on above: Performed By: #### C BCA, FEPR, LIVR, 6-4, 2-9, 4-8, 11894-7 #### [facility] ([id number]) [address] [facility], [address] [place] [address] #### 52939-5 #### [facility] ([id number]) [address] [place] [address]126 Eosinophils/100 WBC (Bld) 0.9 % Normal [facility] Comment on above: Performed By: #### C BCA, FEPR, LIVR, 6-4, 2131-9, 2283-8, 90373-1 #### [facility] ([id number]) [address] [facility], [address] [place] [address] #### 58182-0 #### [facility] ([id number]) [address] [place] [address]684 Erythrocyte distribution width (RBC) [Ratio] 14.2 % Normal 11.5-15.0 [facility] Comment on above: Performed By: #### C BCA, FEPR, LIVR, 6-4, 2-9, 4-8, 99367-9 #### [facility] ([id number]) [address] [facility], [address] [place] [address] #### 40307-0 #### [facility] ([id number]) [address] [place] [address] 39786 Hematocrit (Bld) [Volume fraction] 38.0 % Normal 35-47 [facility] Comment on above: Performed By: #### C BCA, FEPR, LIVR, 6-4, 9, 2284-04, 38231-2 #### [facility] ([id number]) [address], [address] [place] [address] #### 47991-0 #### [facility] ([id number]) [address] [place] [address] 74083 Hemoglobin (Bld) [Mass/Vol] 12.8 g/dL Normal 11.7-15.5 [facility] Comment on above: Performed By: #### C BCA, FEPR, LIVR, 6-4, 2132-05, 2284-04, 58077-2 #### [facility] ([id number]) [address], [address] [place] [address] #### 57466-3 #### [facility] ([id number]) [address] [place] [address] 99052 Lymphocytes (Bld) [#/Vol] 3.8 10*3/uL High 1.0-3.5 [facility] Comment on above: Performed By: #### C BCA, FEPR, LIVR, 6-4, 2132-05, 2284-04, 53452-6 #### [facility] ([id number]) [address], [address] [place] [address] #### 55917-8 #### [facility] ([id number]) [address] [place] [address] 47873 Lymphocytes/100 WBC (Bld) 36.4 % Normal [facility] Comment on above: Performed By: #### C BCA, FEPR, LIVR, 6-4, 9, 8, 88399-8 #### [facility] ([id number]) [address], [address] [place] [address] #### 56643-3 #### [facility] ([id number]) [address] [place] [address] 17474 MCH (RBC) [Entitic mass] 28.8 pg Normal 27-34 [facility] Comment on above: Performed By: #### C BCA, FEPR, LIVR, 2275-, 2132-05, 2284-04, 80521-5 #### [facility] ([id number]) [address], [address] [place] [address] #### 13666-8 #### [facility] ([id number]) [address] [place] [address] 32890 MCHC (RBC) [Mass/Vol] 33.8 g/dL Normal 32-36 [facility] Comment on above: Performed By: #### C BCA, FEPR, LIVR, 2275-12, 2132-05, 2284-04, 87854-0 #### [facility] ([id number]) [address], [address] [place] [address] #### 07670-6 #### [facility] ([id number]) [address] [place] [address] 80984 MCV (RBC) [Entitic vol] 85 fL Normal 80-100 [facility] Comment on above: Performed By: #### C BCA, FEPR, LIVR, 2275-12, 2132-05, 2284-04, 46143-3 #### [facility] ([id number]) [address], [address] [place] [address] #### 02194-5 #### [facility] ([id number]) [address] [place] [address] 48882 Monocytes (Bld) [#/Vol] 0.4 10*3/uL Normal 0-0.9 [facility] Comment on above: Performed By: #### C BCA, FEPR, LIVR, 2275-4, 9, 8, 56209-2 #### [facility] ([id number]) [address] [facility], [address] [place] [address] #### 48146-3 #### [facility] ([id number]) [address] [place] [address] 53330 Monocytes/100 WBC (Bld) 4.1 % Normal [facility] Comment on above: Performed By: #### C BCA, FEPR, LIVR, 2275-, 2132-05, 2284-04, 47267-1 #### [facility] ([id number]) [address] [facility], [address] [place] [address] #### 92296-8 #### [facility] ([id number]) [address] [place] [address] 53025 Neutrophils/100 WBC (Bld) 57.9 % Normal [facility] Comment on above: Performed By: #### C BCA, FEPR, LIVR, 2275-12, 2132-05, 2284-04, 01682-0 #### [facility] ([id number]) [address] [facility], [address] [place] [address] #### 37362-6 #### [facility] ([id number]) [address] [place] [address] 63006 Platelet mean volume (Bld) [Entitic vol] 8.7 fL Normal 7-12 [facility] Comment on above: Performed By: #### C BCA, FEPR, LIVR, 2275-, 2132-05, 2284-04, 00750-5 #### [facility] ([id number]) [address] [facility], [address] [place] [address] #### 17125-3 #### [facility] ([id number]) [address] [place] [address] 37815 Platelets (Bld) [#/Vol] 308 10*3/uL Normal 150-450 [facility] Comment on above: Performed By: #### C BCA, FEPR, LIVR, 6-4, 2131-9, 2283-8, 44092-2 #### [facility] ([id number]) [address] [place] [address], [address] [place] [address] #### 34978-9 #### [facility] ([id number]) [address] [place] [address] 61004 RBC COUNT 4.45 X10E12/L Normal 3.80-5.20 [facility] Comment on above: Performed By: #### C BCA, FEPR, LIVR, 2275-4, 9, 2283-8, 30257-7 #### [facility] ([id number]) [address] [place] [address], [address] [place] [address] #### 30959-7 #### [facility] ([id number]) [address] [place] [address] 78491 WBC (Bld) [#/Vol] 10.5 10*3/uL Normal 4.0-11.0 [facility] Comment on above: Performed By: #### C BCA, FEPR, LIVR, 2275-4, 9, 2283-8, 72293-2 #### [facility] ([id number]) [address] [place] [address], [address] [place] [address] #### 61856-0 #### [facility] ([id number]) [address] [place] [address]148 FERRITINon 01-01-2025 Ferritin [Mass/Vol] 40 ng/mL Normal 11-307 [facility] Comment on above: Performed By: #### H A1C, FEPR, 29014-2, 3016-3, 2284-8, 2131- 9, 26399-8 #### [facility] ([id number]) [address], [address] [place] [address] #### 16073-3 #### [facility] ([id number]) [address] [place] [address] 67185 Folate [Mass/Vol]on 01-02-20 25 FOLIC ACID 4.0 ng/mL Low >5.8 [facility] Comment on above: Result Comment: NEW REFERENCE RANGE Performed By: #### H A1C, FEPR, 96295-0, 3016-3, 4-8, 2131-9, 77075-5 #### [facility] ([id number]) [address], [address] [place] [address] #### 93691-5 #### [facility] ([id number]) [address] [place] [address] 08543 IRON PROFILEon 01-01-2025 Iron [Mass/Vol] 36 ug/dL Low 50-170 [facility] Comment on above: Performed By: #### H A1C, FEPR, 28624-8, 3016-3, 4-8, 9, 05727-5 #### [facility] ([id number]) [address], [address] [place] [address] #### 87391-7 #### [facility] ([id number]) [address] [place] [address] 13265 IRON BINDING 346 ug/dL Normal 250-425 [facility] Comment on above: Performed By: #### H A1C, FEPR, 61897-2, 3016-3, 2284-8, 2131- 9, 83626-2 #### [facility] ([id number]) [address], [address] [place] [address] #### 49090-3 #### [facility] ([id number]) [address] [place] [address] IRON SATURATION 10 % SATURATION Low 15-50 [facility] Comment on above: Performed By: #### H A1C, FEPR, 73646-6, 3016-3, 2284-8, 2131- 9, 67641-0 #### [facility] ([id number]) [address] [facility], [address] [place] [address] #### 15989-4 #### [facility] ([id number]) [address] [place] [address] 14021 LIVER PANELon 01-01-2025 Albumin [Mass/Vol] 4.1 g/dL Normal 3.2-5.3 [facility] Comment on above: Performed By: #### H A1C, FEPR, 77326-1, 3016-3, 4-8, 9, 96498-4 #### [facility] ([id number]) [address] [facility], [address] [place] [address] #### 59187-2 #### [facility] ([id number]) [address] [place] [address] 79000 ALP [Catalytic activity/Vol] 95 U/L Normal 39-130 [facility] Comment on above: Performed By: #### H A1C, FEPR, 71998-4, 3016-3, 4-8, 9, 94300-3 #### [facility] ([id number]) [address] [facility], [address] [place] [address] #### 62899-9 #### [facility] ([id number]) [address] [place] [address] 28750 ALT [Catalytic activity/Vol] 24 U/L Normal 0-31 [facility] Comment on above: Performed By: #### H A1C, FEPR, 34276-2, 3016-3, 2284-8, 9, 01327-4 #### [facility] ([id number]) [address], [address] [place] [address] #### 16431-9 #### [facility] ([id number]) [address] [place] [address] 33112 AST [Catalytic activity/Vol] 18 U/L Normal 0-41 [facility] Comment on above: Performed By: #### H A1C, FEPR, 13007-1, 3016-3, 4-8, 9, 28119-5 #### [facility] ([id number]) [address], [address] [place] [address] #### 64592-6 #### [facility] ([id number]) [address] [place] [address] 73941 Bilirubin [Mass/Vol] 0.4 mg/dL Normal 0.3-1.2 [facility] Comment on above: Performed By: #### H A1C, FEPR, 78534-6, 3016-3, 4-8, 9, 25216-7 #### [facility] ([id number]) [address], [address] [place] [address] #### 25960-5 #### [facility] ([id number]) [address] [place] [address] 64835 Bilirubin.direct [Mass/Vol] 0.2 mg/dL Normal 0.0-0.4 [facility] Comment on above: Performed By: #### H A1C, FEPR, 22394-4, 3016-3, 4-8, 9, 77260-9 #### [facility] ([id number]) [address], [address] [place] [address] #### 95580-3 #### [facility] ([id number]) [address] [place] [address] Protein [Mass/Vol] 7.1 g/dL Normal 6.0-8.0 [facility] Comment on above: Performed By: #### H A1C, FEPR, 47038-2, 6-3, 4-8, 2131- 9, 19277-2 #### [facility] ([id number]) [address] [facility], [address] [place] [address] #### 16515-0 #### [facility] ([id number]) [address] [place] [address] Thiamine (Bld) [Moles/Vol]on 01-01-2025 Thiamin (Vitamin B1), WB 118 nmol/L Normal 70-180 [facility] Comment on above: Result Comment: NOTE ADDITIONAL INFORMATION This test was developed and its performance characteristics determined by [facility] in a manner consistent with CLIA requirements. This test has not been cleared or approved by the U.S. Food and Drug Administration. Test Performed by: [place] [address] Shooting Gallery Operator: Jayce Daniels Ph.D.; CLIA# [id number] Performed By: #### H A1C, FEPR, 26334-4, 6-3, 2283-8, 9, 54481-8 #### [facility] ([id number]) [address] [facility], [address] [place] [address] #### 85697-0 #### [facility] ([id number]) [address] [place] [address] 10507 VITAMIN B12on 01-01-2025 Cobalamin (Vitamin B12) [Mass/Vol] 379 pg/mL Normal 180-914 [facility] Comment on above: Performed By: #### H A1C, FEPR, 90476-5, 6-3, 2283-8, 2132- 9, 48153-5 #### [facility] ([id number]) [address], [address] [place] [address] #### 80749-0 #### [facility] ([id number]) [address] [place] [address] Vitamin D+Metabolites [Mass/ Vol]on 01-01-2025 VITAMIN D 25 HYD TOT 32.4 ng/mL Normal 30-100 [facility] Comment on above: Result Comment: Vitamin D status 25 [place] Vitamin D Deficiency <20 ng/mL Insufficiency 20-29 ng/mL Sufficiency 30-100 ng/mL Toxicity >100 ng/mL NOTE: A pediatric reference range has not been established by the wireless sales associate of this kit. The [place] [employer] recommends a Vitamin D level of = or >20ng/mL in infants and children. Performed By: #### H A1C, FEPR, 26055-9, 3016-3, 2284-8, 2-9, 90059-8 #### [facility] ([id number]) [address], [address] [place] [address] #### 68403-0 #### [facility] ([id number]) [address] [place] [address] 51579 XR SPINE LUMBAR 2 OR 3 VWSon [...] Gallegos MD on 12/15/2024 1:53 PM Normal [facility] - Microbiology an d Antimicrobial susceptibilityon 10-10-2024 SARS-CoV-2 (COVID-19) RNA MYNOR+probe Ql (Unsp spec) Negative [facility] No Panel Informationon 10-10 FLU A Positive [facility] FLU B Negative [facility] Interpretation and review of laboratory results Abnormal [facility] Urinalysis macro (dipstick) panel (U)on 06-12-2024 Bilirubin, UA Negative Negative - 4(70) +++ mg/dL [facility] Blood, UA Positive Negative - 50 Raul/mcL [facility] Clarity, UA Clear [facility] Healthoh re Color, UA Yellow [facility] Glucose, UA Negative Negative - 2000(110) ++++ mg/dL [facility] Interpretation and review of laboratory results Abnormal [facility] Ketones, UA Positive Negative - 160(16) ++++ mg/dL [facility] Leukocytes, UA 1+ Negative - 500+++ Ramo/mcL [facility] Nitrite, UA Negative Negative - Positive [facility] pH, UA 5.0 5 - 9 [facility] Protein, UA 1+ Negative - 1999(20) ++++ mg/dL [facility] Spec Grav, UA 1.020 1 - 1.03 [facility] Urobilinogen, UA 4.0 0.2 - 12 mg/dL [facility] ti Serviceson 05-01-2024 [facility] CREATININEon 04-24-2024 Creatinine [Mass/Vol] 0.69 mg/dL Normal 0.40-1.00 [facility] Comment on above: Result Comment: METH OD TRACEABLE TO IDMS STANDARD Performed By: #### C RT, PLTCT, #### [facility] ([id number]) [address] [facility], [address] [place] [address] eGFR (CKD-EPI) NON-RACE DEPENDENT >90 Normal >59 [facility] Comment on above: Result Comment: Reported eGFR is based on the CKD-EPI 2020 equation that does not use a race coefficient. Performed By: #### C RT, PLTCT, #### [facility] ([id number]) [address], [address] [place] [address] Creatinine includes GFR, ser umon 04-24-2024 Creatinine [Mass/Vol] 0.69 mg/dL 0.40 - 1.00 mg/dL [facility] Comment on above: METHOD TRACEABLE TO IDVA STANDARD eGFR (CKD-EPI)non-race dependent - PINF [facility] Comment on above: Reported eGFR is based on the CKD-EPI 2020 equation that does not use a race coefficient. [facility] HGB AND HCTon 04-24-2024 Hematocrit (Bld) [Volume fraction] 35.0 % Normal 35-47 [facility] Comment on above: Performed By: #### C RT, PLTCT, MELISSA #### [facility] ([id number]) [address], [address] [place] [address] Hemoglobin (Bld) [Mass/Vol] 11.4 g/dL Low 11.7-15.5 [facility] Comment on above: Performed By: #### C RT, PLTCT, MELISSA #### [facility] ([id number]) [address], [address] [place] [id number] Hemoglobin and hematocrit, b loodon 04-24-2024 Hematocrit (Bld) [Volume fraction] 35.0 % 35 - 47 % [facility] Hemoglobin (Bld) [Mass/Vol] 11.4 g/dL Low 11.7 - 15.5 g/dL [facility] Interpretation and review of laboratory results Abnormal [facility] No Panel Informationon 04-24 [facility] PLATELET COUNT AND MPVon Platelet mean volume (Bld) [Entitic vol] 7.8 fL Normal 7-12 [facility] Comment on above: Performed By: #### C RT, PLTCT, MELISSA #### [facility] ([id number]) [address], [address] [place] [address] Platelets (Bld) [#/Vol] 323 10*3/uL Normal 150-450 [facility] Comment on above: Performed By: #### C RT, PLTCT, #### [facility] ([id number]) [address], [address] [place] [address] Platelet counton 04-24-2024 Platelet mean volume (Bld) [Entitic vol] 7.8 fL 7 - 12 fL [facility] Platelets (Bld) [#/Vol] 323 10*3/uL [facility] HCG ( test) Ql (U)o n 04-23-2024 [facility] Beta HCG ( test) Ql (U) Negative Normal NEG [facility] Comment on above: Performed By: #### 2 106-3 #### [facility] ([id number]) [address] [place] [address] POCT , urineon 04-10 HCG ( test) Ql (U) Negative Negative^Nega tive [facility] BASIC METABOLIC PANLon 04-15 Anion gap [Moles/Vol] 11 mmol/L Normal 5-15 [facility] Comment on above: Performed By: #### C BC, BMP #### [facility] ([id number]) [address], [address] [place] [address] Calcium [Mass/Vol] 9.6 mg/dL Normal 8.5-10.5 [facility] Comment on above: Performed By: #### C BC, BMP #### [facility] ([id number]) [address], [address] [place] [address] Chloride [Moles/Vol] 102 mmol/L Normal 98-109 [facility] Comment on above: Performed By: #### C BC, BMP #### [facility] ([id number]) [address], [address] [place] [address] CO2 [Moles/Vol] 24 mmol/L Normal 22-32 [facility] Comment on above: Performed By: #### C KELLY, BMP #### [facility] ([id number]) [address] [address] Creatinine [Mass/Vol] 0.60 mg/dL Normal 0.40-1.00 [facility] Comment on above: Result Comment: METH OD TRACEABLE TO IDMS STANDARD Performed By: #### C KELLY, BMP #### [facility] ([id number]) [address] [address] eGFR (CKD-EPI) NON-RACE DEPENDENT >90 Normal >59 [facility] Comment on above: Result Comment: Reported eGFR is based on the CKD-EPI 2020 equation that does not use a race coefficient. Performed By: #### C KELLY, BMP #### [facility] ([id number]) [address], [address] [place] [address] Glucose [Mass/Vol] 110 mg/dL High 65-99 [facility] Comment on above: Performed By: #### C KELLY, BMP #### [facility] ([id number]) [address] [address] Potassium [Moles/Vol] 4.2 mmol/L Normal 3.5-5.0 [facility] Comment on above: Performed By: #### C KELLY, BMP #### [facility] ([id number]) [address] [address] [place] [address] Sodium [Moles/Vol] 137 mmol/L Normal 134-146 [facility] Comment on above: Performed By: #### C KELLY, BMP #### [facility] ([id number]) [address] [address] Urea nitrogen [Mass/Vol] 13 mg/dL Normal 5-23 [facility] Comment on above: Performed By: #### C KELLY, BMP #### [facility] ([id number]) [address] [facility] [place] [address] Basic Metabolic Panelon Anion gap [Moles/Vol] 11 mmol/L 5 - 15 mmol/L [facility] Calcium [Mass/Vol] 9.6 mg/dL 8.5 - 10. 5 mg/dL [facility] Chloride [Moles/Vol] 102 mmol/L 98 - 10 9 mmol/L [facility] CO2 [Moles/Vol] 24 mmol/L 22 - 32 mmol/L [facility] Creatinine [Mass/Vol] 0.60 mg/dL 0.40 - 1.00 mg/dL [facility] Comment on above: METHOD TRACEABLE TO IDVA STANDARD eGFR (CKD-EPI)non-race dependent - PINF [facility] Comment on above: Reported eGFR is based on the CKD-EPI 2020 equation that does not use a race coefficient. Glucose [Mass/Vol] 110 mg/dL High 65 - 99 mg/dL [facility] Interpretation and review of laboratory results Abnormal [facility] Potassium [Moles/Vol] 4.2 mmol/L 3.5 - 5.0 mmol/L [facility] Sodium [Moles/Vol] 137 mmol/L 134 - 146 mmol/L [facility] Urea nitrogen [Mass/Vol] 13 mg/dL 5 - 23 mg/dL [facility] CBC without diffon Erythrocyte distribution width (RBC) [Ratio] 15.0 % 11.5 - 15.0 % [facility] Hematocrit (Bld) [Volume fraction] 38.3 % 35 - 47 % [facility] Hemoglobin (Bld) [Mass/Vol] 12.8 g/dL 11.7 - 15.5 g/dL [facility] MCH (RBC) [Entitic mass] 27.7 pg 27 - 34 pg [facility] MCHC (RBC) [Mass/Vol] 33.5 g/dL 32 - 36 g/dL [facility] MCV (RBC) [Entitic vol] 83 fL 80 - 100 fL [facility] Platelet mean volume (Bld) [Entitic vol] 7.9 fL 7 - 12 fL [facility] Platelets (Bld) [#/Vol] 318 10*3/uL [facility] RBC (Bld) [#/Vol] 4.63 10*6/uL [facility] WBC corrected for nucl RBC Auto (Bld) [#/Vol] 9.0 [facility] COMPLETE BLOOD COUNTon 04-15 Erythrocyte distribution width (RBC) [Ratio] 15.0 % Normal 11.5-15.0 [facility] Comment on above: Performed By: #### C KELLY, BMP #### [facility] ([id number]) [address], [address] [place] [address] Hematocrit (Bld) [Volume fraction] 38.3 % Normal 35-47 [facility] Comment on above: Performed By: #### C KELLY, BMP #### [facility] ([id number]) [address], [address] [place] [address] Hemoglobin (Bld) [Mass/Vol] 12.8 g/dL Normal 11.7-15.5 [facility] Comment on above: Performed By: #### C KELLY, BMP #### [facility] ([id number]) [address], [address] [place] [address] MCH (RBC) [Entitic mass] 27.7 pg Normal 27-34 [facility] Comment on above: Performed By: #### C KELLY, BMP #### [facility] ([id number]) [address], [address] [place] [address] MCHC (RBC) [Mass/Vol] 33.5 g/dL Normal 32-36 [facility] Comment on above: Performed By: #### C KELLY, BMP #### [facility] ([id number]) [address], [address] [place] [address] MCV (RBC) [Entitic vol] 83 fL Normal 80-100 [facility] Comment on above: Performed By: #### C KELLY, BMP #### [facility] ([id number]) [address], [address] [place] [address] Platelet mean volume (Bld) [Entitic vol] 7.9 fL Normal 7-12 [facility] Comment on above: Performed By: #### C KELLY, BMP #### [facility] ([id number]) [address], [facility] [address] [place] [address] Platelets (Bld) [#/Vol] 318 10*3/uL Normal 150-450 [facility] Comment on above: Performed By: #### C KELLY, BMP #### [facility] ([id number]) [address], [address] [place] [address] RBC COUNT 4.63 X10E12/L Normal 3.80-5.20 [facility] Comment on above: Performed By: #### C KELLY, BMP #### [facility] ([id number]) [address], [address] [place] [address] WBC (Bld) [#/Vol] 9.0 10*3/uL Normal 4.0-11.0 [facility] Comment on above: Performed By: #### Deepika MENDOZA, BMP #### [facility] ([id number]) [address], [address] [place] [address] Nicotine and Metabolites knapp el (U) [Mass/Vol]on 03-27-2024 Anabasine <2.0 Normal <2.0 [facility] Comment on above: Result Comment: NOTE ADDITIONAL INFORMATION This test was developed and its performance characteristics determined by [facility] in a manner consistent with CLIA requirements. This test has not been cleared or approved by the U.S. Food and Drug Administration. Test Performed by: [facility] [address] [place] [address] Shooting Gallery Operator: Jayce Daniels Ph.D.; CLIA# [id number] Cotinine <5.0 Normal <5.0 [facility] Nicotine <5.0 Normal <5.0 [facility] Nornicotine <2.0 Normal <2.0 [facility] Folate [Mass/Vol]on 03-24-20 FOLIC ACID 9.4 ng/mL Normal >5.8 [facility] Comment on above: Result Comment: NEW REFERENCE RANGE Performed By: #### H A1C, FEPR, 60104-5, 3016-3, 2284-8, 2132-9, 71737-9 #### [facility] ([id number]) [address] [place] [address], [address] [address] #### 87747-5 #### [facility] ([id number]) [address] [place] [address] HGB A1C (GLYCO-HGB)on 2023 Glucose [Mass/Vol] 126 mg/dL Normal [facility] Comment on above: Performed By: #### H A1C, FEPR, 59389-2, 3016-3, 2284-8, 2132- 9, 47600-1 #### [facility] ([id number]) [address] [place] [address], [facility] [address] [place] [address] #### 58069-1 #### [facility] ([id number]) [address] [place] [address] HbA1c (Bld) [Mass fraction] 6.0 % High 4.4-5.6 [facility] Comment on above: Result Comment: NOTE ADA Guidelines Result HgbA1c Normal : less than 5.7 % Prediabetes : 5.7 % to 6.4 % Diabetes : > 6.4 % Use with caution in patients with abnormal hemoglobin variants as the half-life of red blood cells and in vivo glycation rates are affected. Performed By: #### H A1C, FEPR, 95834-9, 3016-3, 2284-8, 2131-9, 81916-1 #### [facility] ([id number]) [address] [place] [address] #### 73795-3 #### [facility] ([id number]) [address] [place] [address] IRON PROFILEon 03-24-2024 Iron [Mass/Vol] 60 ug/dL Normal 50-170 [facility] Comment on above: Performed By: #### H A1C, FEPR, 35449-6, 3016-3, 2284-8, 9, 99934-1 #### [facility] ([id number]) [address] [place] [address] #### 06897-0 #### [facility] ([id number]) [address] [place] [address] IRON BINDING 393 ug/dL Normal 250-425 [facility] Comment on above: Performed By: #### H A1C, FEPR, 07033-3, 3016-3, 4-8, 9, 78275-2 #### [facility] ([id number]) [address] [place] [address] #### 72932-0 #### [facility] ([id number]) [address] [place] [address] IRON SATURATION 15 % SATURATION Normal 15-50 [facility] Comment on above: Performed By: #### H A1C, FEPR, 05399-5, 3016-3, 2284-8, 9, 58812-0 #### [facility] ([id number]) [address] [place] [address] #### 93370-1 #### [facility] ([id number]) [address] [place] [address] Lipid 1996 panelon 4 Cholesterol [Mass/Vol] 181 mg/dL Normal 150-200 [facility] Comment on above: Performed By: #### H A1C, FEPR, 79209-2, 3016-3, 2284-8, 2132- 9, 67464-5 #### [facility] ([id number]) [address] [facility], [address] [place] [address] #### 70774-2 #### [facility] ([id number]) [address] [place] [address] Cholesterol in HDL [Mass/Vol] 38 mg/dL Low >39 [facility] Comment on above: Result Comment: HDL <40 mg/dL - High Risk HDL > or = 40mg/dL- Desirable HDL >60 mg/dL - Negative Risk Performed By: #### H A1C, FEPR, 89897-9, 3016-3, 4-8, 9, 82689-6 #### [facility] ([id number]) [address] [facility] [place] [address] #### 21834-9 #### [facility] ([id number]) [address] [place] [address] Cholesterol in LDL [Mass/Vol] 109 mg/dL Normal <130 [facility] Comment on above: Result Comment: LDL <100 mg/dL - Desirable LDL >160 mg/dL - High Risk Performed By: #### H A1C, FEPR, 15237-5, 3016-3, 2284-8, 2131-9, 04819-2 #### [facility] ([id number]) [address] [facility] [place] [address] #### 61664-2 #### [facility] ([id number]) [address] [place] [address] Cholesterol in VLDL [Mass/Vol] 34 mg/dL High 0-30 [facility] Comment on above: Performed By: #### H A1C, FEPR, 11645-6, 3016-3, 4-8, 2131- 9, 72661-1 #### [facility] ([id number]) [address] [facility] [place] [address] #### 91216-6 #### [facility] ([id number]) [address] [place] [address] CHOLESTEROL:HDL 4.8 Normal 1.0-5.0 [facility] Comment on above: Performed By: #### H A1C, FEPR, 66833-7, 3016-3, 4-8, 2131- 9, 41876-8 #### [facility] ([id number]) [address] [facility] [place] [address] #### 27781-8 #### [facility] ([id number]) [address] [place] [address] Triglyceride [Mass/Vol] 172 mg/dL High 27-150 [facility] Comment on above: Performed By: #### H A1C, FEPR, 40928-6, 3016-3, 2284-8, 2131- 9, 63639-4 #### [facility] ([id number]) [address] [facility] [place] [address] #### 30089-7 #### [facility] ([id number]) [address] [place] [address] TSH Qnon 03-24-2024 TSH 1.53 uIU/mL Normal 0.49-4.67 [facility] Comment on above: Performed By: #### H A1C, FEPR, 46903-4, 3016-3, 4-8, 9, 60935-2 #### [facility] ([id number]) [address] [facility] [place] [address] #### 39953-5 #### [facility] ([id number]) [address] [place] [address] VITAMIN B12on 03-24-2024 Cobalamin (Vitamin B12) [Mass/Vol] 344 pg/mL Normal 180-914 [facility] Comment on above: Performed By: #### H A1C, FEPR, 01402-4, 6-3, 8, , 32497-1 #### [facility] ([id number]) [address] [facility] [place] [address] #### 91026-5 #### [facility] ([id number]) [address] [place] [address] Vitamin D+Metabolites [Mass/ Vol]on 03-24-2024 VITAMIN D 25 HYD TOT 24.7 ng/mL Low 30-100 [facility] Comment on above: Result Comment: Vitamin D status 25 [place] Vitamin D Deficiency <20 ng/mL Insufficiency 20-29 ng/mL Sufficiency 30-100 ng/mL Toxicity >100 ng/mL NOTE: A pediatric reference range has not been established by the wireless sales associate of this kit. The [place] [employer] recommends a Vitamin D level of = or >20ng/mL in infants and children. Performed By: #### H A1C, FEPR, 44882-5, 3016-3, 4-8, 9, 97570-0 #### [facility] ([id number]) [address] [place] [address], [address] [place] [address] #### 35708-3 #### [facility] ([id number]) [address] [place] [address], [place] [address] CBC AUTO DIFFon 11-03-2022 BASO # 0.1 103/ul Normal 0.0-0.1 [facility] Comment on above: Performed By: #### C BC #### [facility] [address] [place] [address] Dr. Emmanuel Murray Basophils/100 WBC (Bld) 0.6 % Normal 0.2-2.0 [facility] Comment on above: Performed By: #### C BC #### [facility] [address] [place] [address] Dr. Emmanuel Murray EO # 0.2 103/ul Normal 0.0-0.7 [facility] Comment on above: Performed By: #### C BC #### [facility] [address] [place] [address] Dr. Emmanuel Murray Eosinophils/100 WBC (Bld) 1.8 % Normal 0.9-7.0 [facility] Comment on above: Performed By: #### C BC #### [facility] [address] [place] [address] Dr. Emmanuel Murray Erythrocyte distribution width (RBC) [Ratio] 14.4 % Normal 11.0-15.0 [facility] Comment on above: Performed By: #### C BC #### [facility] [address] [place] [address] Dr. Emmanuel Murray Hematocrit (Bld) [Volume fraction] 37.7 % Normal 36.0-48.0 [facility] Comment on above: Performed By: #### C BC #### [facility] [address] [place] [address] Dr. Emmanuel Murray Hemoglobin (Bld) [Mass/Vol] 12.2 g/dL Normal 12.0-16.0 [facility] Comment on above: Performed By: #### C BC #### [facility] [address] [address] [address] Emmanuel Murray IG # 0.08 10e3/ul Critically high 0.00-0.03 [facility] Comment on above: Performed By: #### C BC #### [facility] [address] [address] [address] Emmanuel Murray IG % 0.8 % Critically high 0.0-0.5 [facility] Comment on above: Performed By: #### C BC #### [facility] [address] [address] [address] Emmanuel Murray LYMPH # 3.0 103/ul Normal 1.2-3.8 [facility] Comment on above: Performed By: #### C BC #### [facility] [address] [place] [address] Dr. Emmanuel Murray Lymphocytes/100 WBC (Bld) 30.6 % Normal 20.5-60.0 [facility] Comment on above: Performed By: #### C BC #### [facility] [address] [place] [address] Dr. Emmanuel Murray MANUAL DIFF REQ NO Normal [facility] Comment on above: Performed By: #### C BC #### [facility] [address] [place] [address] Dr. Emmanuel Murray MCH (RBC) [Entitic mass] 26.0 pg Critically low 26.7-34.0 [facility] Comment on above: Performed By: #### C BC #### [facility] [address] [place] [address] Dr. Emmanuel Murray MCHC (RBC) [Mass/Vol] 32.4 g/dL Normal 29.9-35.2 [facility] Comment on above: Performed By: #### C BC #### [facility] [address] [place] [address] Dr. Emmanuel Murray MCV (RBC) [Entitic vol] 80.4 fL Critically low 81.0-99.0 [facility] Comment on above: Performed By: #### C BC #### [facility] [address] [place] [address] Dr. Emmanuel Murray MONO # 0.4 103/ul Normal 0.3-0.8 [facility] Comment on above: Performed By: #### C BC #### [facility] [address] [place] [address] Dr. Emmanuel Murray Monocytes/100 WBC (Bld) 4.6 % Normal 1.7-12.0 [facility] Comment on above: Performed By: #### C BC #### [facility] [address] [place] [address] Dr. Emmanuel Murray NEUT # 6.0 103/ul Normal 1.4-6.5 [facility] Comment on above: Performed By: #### C BC #### [facility] [address] [place] [address] Dr. Emmanuel Murray Neutrophils/100 WBC (Bld) 61.6 % Normal 43.0-75.0 [facility] Comment on above: Performed By: #### C BC #### [facility] [address] [place] [address] Dr. Emmanuel Murray Platelet mean volume (Bld) [Entitic vol] 8.9 fL Critically low 9.5-13.5 [facility] Comment on above: Performed By: #### C BC #### [facility] [address] [place] [address] Dr. Emmanuel Murray PLT 301 103/ul Normal 150-450 [facility] Comment on above: Performed By: #### C BC #### [facility] [address] [place] [address] Dr. Emmanuel Murray RBC 4.69 106/ul Normal 4.20-5.40 [facility] Comment on above: Performed By: #### C BC #### [facility] [address] [place] [address] Dr. Emmanuel Murray WBC 9.7 103/ul Normal 4.0-11.0 [facility] Comment on above: Performed By: #### C BC #### [facility] [address] [place] [address] Dr. Emmanuel Murray PREG QUANT HCGon 11-03-2022 HCG QUANT 1 mIU/mL Normal [facility] Comment on above: Performed By: #### C VDTBH #### [facility] [address] [place] [address] Dr. Emmanuel Murray HCG RANGE SEE BELOW Normal [facility] Comment on above: Result Comment: 5-50 0.2-1 WEEK 50-500 1-2 WEEKS 100-5,000 2-3 WEEKS 500-10,000 3-4 WEEKS 1,000-50,000 4-5 WEEKS 10,000-100,000 5-6 WEEKS 15,000-200,000 6-8 WEEKS 10,000-100,000 2-3 MONTHS Performed By: #### C VDTBH #### [facility] [address] [place] [address] Dr. Emmanuel Murray US PELVIS AND TRANSVAGon [...] by: ASHLEY GRIER Date: 2022-09-26 16:50 Normal [facility] PAP ACOG PANEL 2: 21 to 29on 07-04-2022 . . Normal [facility] Comment on above: Performed By: #### 4 [id number] #### [facility] [address] [place] [address] Dr. Emmanuel Murray Age Gdln ACOG Testing 21-29 Normal [facility] Comment on above: Performed By: #### 4 [id number] #### [facility] [address] [place] [address] Dr. Emmanuel Murray DIAGNOSIS: Comment Normal [facility] Comment on above: Result Comment: NEGA TIVE FOR INTRAEPITHELIAL LESION OR MALIGNANCY. Performed By: #### 4 [id number] #### [facility] [address] [place] [address] Dr. Emmanuel Murray Methodology: Comment Normal [facility] Comment on above: Result Comment: This liquid based ThinPrep(R) pap test was screened with the use of an image guided system. Performed By: #### 4 [id number] #### [facility] [address] [place] [address] Dr. Emmanuel Murray Note: Comment Normal [facility] Comment on above: Result Comment: The Pap smear is a screening test designed to aid in the detection of premalignant and malignant conditions of the uterine cervix. It is not a diagnostic procedure and should not be used as the sole means of detecting cervical cancer. Both false-positive and false-negative reports do occur. . Performed By: #### 4 [id number] #### [facility] [address] [place] [address] Dr. Emmanuel Murray Performed by: Comment Normal [facility] Comment on above: Result Comment: Lana Grier, Director Of Assessment (ASCP) Performed By: #### 4 [id number] #### [facility] [address] [place] [address] Dr. Emmanuel Murray Reflex Criteria: Comment Normal [facility] Comment on above: Result Comment: The HPV DNA reflex criteria were not met with this specimen result therefore, no HPV testing was performed. . Performed By: #### 4 [id number] #### [facility] [address] [place] [address] Dr. Emmanuel Murray Specimen adequacy: Comment Normal [facility] Comment on above: Result Comment: Sati sfactory for evaluation. No endocervical component is identified. Performed By: #### 4 [id number] #### [facility] [address] [place] [address] Dr. Emmanuel Murray US PELVIS AND TRANSVAGon [...] ASHLEY GRIER Date: 2022-07-02 16:21 Normal [facility] CBC AUTO DIFFon 07-01-2022 BASO # 0.0 103/ul Normal 0.0-0.1 [facility] Comment on above: Performed By: #### C BC #### [facility] [address] [place] [address] Dr. Emmanuel Murray Basophils/100 WBC (Bld) 0.5 % Normal 0.2-2.0 [facility] Comment on above: Performed By: #### C BC #### [facility] [address] [place] [address] Dr. Emmanuel Murray EO # 0.2 103/ul Normal 0.0-0.7 [facility] Comment on above: Performed By: #### C BC #### [facility] [address] [place] [address] Dr. Emmanuel Murray Eosinophils/100 WBC (Bld) 1.8 % Normal 0.9-7.0 [facility] Comment on above: Performed By: #### C BC #### [facility] [address] [place] [address] Dr. Emmanuel Murray Erythrocyte distribution width (RBC) [Ratio] 14.3 % Normal 11.0-15.0 [facility] Comment on above: Performed By: #### C BC #### [facility] [address] [place] [address] Dr. Emmanuel Murray Hematocrit (Bld) [Volume fraction] 36.8 % Normal 36.0-48.0 [facility] Comment on above: Performed By: #### C BC #### [facility] [address] [place] [address] Dr. Emmanuel Murray Hemoglobin (Bld) [Mass/Vol] 11.5 g/dL Critically low 12.0-16.0 [facility] Comment on above: Performed By: #### C BC #### [facility] [address] [place] [address] Dr. Emmanuel Murray IG # 0.03 10e3/ul Normal 0.00-0.03 [facility] Comment on above: Performed By: #### C BC #### [facility] [address] [place] [address] Dr. Emmanuel Murray IG % 0.4 % Normal 0.0-0.5 [facility] Comment on above: Performed By: #### C BC #### [facility] [address] [place] [address] Dr. Emmanuel Murray LYMPH # 1.9 103/ul Normal 1.2-3.8 [facility] Comment on above: Performed By: #### C BC #### [facility] [address] [place] [address] Dr. Emmanuel Murray Lymphocytes/100 WBC (Bld) 23.2 % Normal 20.5-60.0 [facility] Comment on above: Performed By: #### C BC #### [facility] [address] [place] [address] Dr. Emmanuel Murray MANUAL DIFF REQ NO Normal [facility] Comment on above: Performed By: #### C BC #### [facility] [address] [place] [address] Dr. Emmanuel Murray MCH (RBC) [Entitic mass] 25.6 pg Critically low 26.7-34.0 [facility] Comment on above: Performed By: #### C BC #### [facility] [address] [place] [address] Dr. Emmanuel Murray MCHC (RBC) [Mass/Vol] 31.3 g/dL Normal 29.9-35.2 [facility] Comment on above: Performed By: #### C BC #### [facility] [address] [place] [address] Dr. Emmanuel Murray MCV (RBC) [Entitic vol] 81.8 fL Normal 81.0-99.0 [facility] Comment on above: Performed By: #### C BC #### [facility] [address] [address] [address] Emmanuel Murray MONO # 0.3 103/ul Normal 0.3-0.8 [facility] Comment on above: Performed By: #### C BC #### [facility] [address] [address] [address] Emmanuel Murray Monocytes/100 WBC (Bld) 3.5 % Normal 1.7-12.0 [facility] Comment on above: Performed By: #### C BC #### [facility] [address] [address] [address] Emmanuel Murray NEUT # 5.9 103/ul Normal 1.4-6.5 [facility] Comment on above: Performed By: #### C BC #### [facility] [address] [place] [address] Dr. Emmanuel Murray Neutrophils/100 WBC (Bld) 70.6 % Normal 43.0-75.0 [facility] Comment on above: Performed By: #### C BC #### [facility] [address] [place] [address] Dr. Emmanuel Murray Platelet mean volume (Bld) [Entitic vol] 9.5 fL Normal 9.5-13.5 [facility] Comment on above: Performed By: #### C BC #### [facility] [address] [place] [address] Dr. Emmanuel Murray PLT 292 103/ul Normal 150-450 [facility] Comment on above: Performed By: #### C BC #### [facility] [address] [place] [address] Dr. Emmanuel Murray RBC 4.50 106/ul Normal 4.20-5.40 [facility] Comment on above: Performed By: #### C BC #### [facility] [address] [place] [address] Dr. Emmanuel Murray WBC 8.4 103/ul Normal 4.0-11.0 [facility] Comment on above: Performed By: #### C BC #### [facility] [address] [place] [address] Dr. Emmanuel Murray PREG QUANT HCGon 07-01-2022 HCG QUANT <1 Normal [facility] Comment on above: Performed By: #### P REGQNT, TSH #### [facility] [address] [place] [address] Dr. Emmanuel Murray HCG RANGE SEE BELOW Normal [facility] Comment on above: Result Comment: 5-50 0.2-1 WEEK 50-500 1-2 WEEKS 100-5,000 2-3 WEEKS 500-10,000 3-4 WEEKS 1,000-50,000 4-5 WEEKS 10,000-100,000 5-6 WEEKS 15,000-200,000 6-8 WEEKS 10,000-100,000 2-3 MONTHS Performed By: #### P REGQNT, TSH #### [facility] [address] [place] [address] Dr. Emmanuel Murray PROTIMEon 07-01-2022 INR Coag (PPP) [Relative time] 1.01 {INR} Normal [facility] Comment on above: Performed By: #### P T, PTT #### [facility] [address] [place] [address] Dr. Emmanuel Murray INR GUIDELINES SEE BELOW Normal [facility] Comment on above: Result Comment: SAMIA RED INR: 2.0 - 3.0 CONDITIONS NOT LISTED BELOW 2.5 - 3.5 FOR PROSTHETIC HEART VALVE REPLACEMENT 2.5 - 3.5 RECURRENT THROMBOSIS Performed By: #### P T, PTT #### [facility] [address] [place] [address] Dr. Emmanuel Murray PT Coag (PPP) [Time] 10.9 s Normal 9.0-11.6 [facility] Comment on above: Performed By: #### P T, PTT #### [facility] [address] [place] [address] Dr. Emmanuel Murray PTTon 07-01-2022 aPTT Coag (Bld) [Time] 27.2 s Normal 22.3-36.2 [facility] Comment on above: Performed By: #### P T, PTT #### [facility] [address] [address] [address] Emmanuel Murray TSHon 07-01-2022 TSH 1.795 uIU/mL Normal 0.358-3.740 [facility] Comment on above: Performed By: #### P REGQNT, TSH #### [facility] [address] [address] [address] Emmanuel Murray Basic Metabolic Panelon 11-09 Anion gap [Moles/Vol] 13 mmol/L 9 - 17 mmol/L [facility] Calcium [Mass/Vol] 9.2 mg/dL 8.6 - 10. 4 mg/dL [facility] Chloride [Moles/Vol] 99 mmol/L 98 - 10 7 mmol/L [facility] CO2 [Moles/Vol] 23 mmol/L 20 - 31 mmol/L [facility] Creatinine [Mass/Vol] 0.53 mg/dL 0.50 - 0.90 mg/dL [facility] GFR >60 >60 mL/min [facility] GFR Non- >60 >60 mL/min [facility] GFR/1.73 sq M.predicted MDRD (S/P/Bld) [Vol rate/Area] [facility] Comment on above: Average GFR for 20-2 9 years old: 116 mL/min/1.73sq m Chronic Kidney Disease: <60 mL/min/1.73sq m Kidney failure: <15 mL/min/1.73sq m eGFR calculated using average adult body mass. Additional eGFR calculator available at: http://www.[employer].LangoLab/multiple_crcl_2011.htm Glucose [Mass/Vol] 109 mg/dL High 70 - 99 mg/dL [facility] Interpretation and review of laboratory results Abnormal [facility] Potassium [Moles/Vol] 4.2 mmol/L 3.7 - 5.3 mmol/L [facility] Sodium [Moles/Vol] 135 mmol/L 135 - 144 mmol/L [facility] Urea nitrogen (BldV) [Mass/Vol] 13 mg/dL 6 - 20 mg/dL NCR [facility] Urea nitrogen/Creatinine (Bld) [Mass ratio] 25 High [facility] Basic Metabolic Profon 12-05 (cont.) Normal [facility] Comment on above: Result Comment: Aver age GFR for 20-29 years old: 116 mL/min/1.73sq m Chronic Kidney Disease: <60 mL/min/1.73sq m Kidney failure: <15 mL/min/1.73sq m eGFR calculated using average adult body mass. Additional eGFR calculator available at: http://www.[employer].Lango[employer]/multiple_crcl_2012.htm Performed By: #### C BC, HEPXA, CMPX, MG, TSHX, TROPI #### [facility] [address] [place] [address] Shooting Gallery Operator: Dexter Fried MD #### LIPR #### [address] [address] Shooting Gallery Operator: Paco Tatum MD Anion gap [Moles/Vol] 13 mmol/L Normal 9-17 [facility] Comment on above: Performed By: #### C BC, HEPXA, CMPX, MG, TSHX, TROPI #### [facility] [address] [place] [address] Shooting Gallery Operator: Dexter Fried MD #### LIPR #### [address] [address] Shooting Gallery Operator: Paco Tatum MD BUN/CRE Ratio 25 High 9-20 [facility] Comment on above: Performed By: #### C BC, HEPXA, CMPX, MG, TSHX, TROPI #### [facility] [address] [place] [address] Shooting Gallery Operator: Dexter Fried MD #### LIPR #### [address] [address] Shooting Gallery Operator: Paco Tatum MD Calcium [Mass/Vol] 9.2 mg/dL Normal 8.6-10.4 [facility] Comment on above: Performed By: #### C BC, HEPXA, CMPX, MG, TSHX, TROPI #### [facility] [address] [place] [address] Shooting Gallery Operator: Dexter Fried MD #### LIPR #### [address] [address] Shooting Gallery Operator: Paco Tatum MD Chloride [Moles/Vol] 99 mmol/L Normal 98-107 [facility] Comment on above: Performed By: #### C BC, HEPXA, CMPX, MG, TSHX, TROPI #### [facility] [address] [place] [address] Shooting Gallery Operator: Dexter Fried MD #### LIPR #### [address] [address] Shooting Gallery Operator: Paco Tatum MD CO2 [Moles/Vol] 23 mmol/L Normal 20-31 [facility] Comment on above: Performed By: #### C BC, HEPXA, CMPX, MG, TSHX, TROPI #### [facility] [address] [place] [address] Shooting Gallery Operator: Dexter Fried MD #### LIPR #### [address] [address] Shooting Gallery Operator: Paco Tatum MD Creatinine [Mass/Vol] 0.53 mg/dL Normal 0.50-0.90 [facility] Comment on above: Performed By: #### C BC, HEPXA, CMPX, MG, TSHX, TROPI #### [facility] [address] [place] [address] Shooting Gallery Operator: Dexter Fried MD #### LIPR #### [address] [address] Shooting Gallery Operator: Paco Tatum MD GFR, Amer >60 Normal >60 [facility] Comment on above: Performed By: #### C BC, HEPXA, CMPX, MG, TSHX, TROPI #### [facility] [address] [place] [address] Shooting Gallery Operator: Dexter Fried MD #### LIPR #### [address] [address] Shooting Gallery Operator: Paco Tatum MD GFR,non Amer >60 Normal >60 [facility] Comment on above: Performed By: #### C BC, HEPXA, CMPX, MG, TSHX, TROPI #### [facility] [address] [place] [address] Shooting Gallery Operator: Dexter Fried MD #### LIPR #### [address] [address] Shooting Gallery Operator: Paco Tatum MD Glucose [Mass/Vol] 109 mg/dL High 70-99 [facility] Comment on above: Performed By: #### C BC, HEPXA, CMPX, MG, TSHX, TROPI #### [facility] [address] [place] [address] Shooting Gallery Operator: Dexter Fried MD #### LIPR #### [address] [address] Shooting Gallery Operator: Paco Tatum MD Potassium [Moles/Vol] 4.2 mmol/L Normal 3.7-5.3 [facility] Comment on above: Performed By: #### C BC, HEPXA, CMPX, MG, TSHX, TROPI #### [facility] [address] [place] [address] Shooting Gallery Operator: Dexter Fried MD #### LIPR #### [address] [place] [address] Shooting Gallery Operator: Paco Tatum MD Sodium [Moles/Vol] 135 mmol/L Normal 135-144 [facility] Comment on above: Performed By: #### C BC, HEPXA, CMPX, MG, TSHX, TROPI #### [facility] [address] [place] [address] Shooting Gallery Operator: Dexter Fried MD #### LIPR #### [address] [phone] Shooting Gallery Operator: Paco Tatum MD Urea nitrogen [Mass/Vol] 13 mg/dL Normal 6-20 [facility] Comment on above: Performed By: #### C BC, HEPXA, CMPX, MG, TSHX, TROPI #### [facility] [address] [place] [address] Shooting Gallery Operator: Dexter Fried MD #### LIPR #### [address] [address] Shooting Gallery Operator: Paco Tatum MD CBC with Auto Differentialon 12-05-2021 Absolute Eos # 0.14 [facility] th Absolute Immature Granulocyte 0.03 [facility] Absolute Lymph # 2.57 [facility] Absolute [place] # 0.34 [facility] Basophils (Bld) [#/Vol] 0.10 10*3/uL [facility] Basophils/100 WBC (Bld) 1 % 0 - 2 % [facility] Eosinophils/100 WBC (Bld) 2 % 1 - 4 % [facility] Hematocrit (Bld) [Volume fraction] 38.1 % 36.3 - 47.1 % [facility] Hemoglobin.gastroint estinal spec 1 Ql (Stl) 11.8 g/dL Low 11.9 - 15.1 g/dL [facility] Immature granulocytes/100 WBC (Bld) 0 % 0 [facility] Interpretation and review of laboratory results Abnormal [facility] Lymphocytes/100 WBC (Bld) 29 % 24 - 43 % [facility] MCH (RBC) [Entitic mass] 26.5 pg 25.2 - 33.5 pg [facility] MCHC (RBC) [Mass/Vol] 31.0 g/dL 28.4 - 34.8 g/dL [facility] MCV (RBC) [Entitic vol] 85.6 fL 82.6 - 102.9 fL [facility] Monocytes/100 WBC (Bld) 4 % 3 - 12 % [facility] NRBC Automated 0.0 0.0 per 100 WBC [facility] Platelet distribution width (Bld) [Ratio] 14.2 % 11.8 - 14.4 % [facility] Platelet mean volume (Bld) [Entitic vol] 9.3 fL 8.1 - 13.5 fL [facility] Platelets (Bld) [#/Vol] 377 10*3/uL [facility] RBC (Bld) [#/Vol] 4.45 10*6/uL 3.95 - 5.1 1 m/uL [facility] Segmented neutrophils/100 WBC (Bld) 64 % 36 - 65 % [facility] Segs [facility] 5.[facility] [#/Vol] 8.8 10*3/uL [facility] CBC with Diffon 12-05-2021 Abs. Basophil 0.10 k/uL Normal 0.00-0.20 [facility] Comment on above: Performed By: #### C BC, HEPXA, CMPX, MG, TSHX, TROPI #### [facility] [address] [place] [address] Shooting Gallery Operator: Dexter Fried MD #### LIPR #### [facility] [address] [place], [place] [phone] Shooting Gallery Operator: Paco Tatum MD Abs.Imm.Granulocyte 0.03 k/uL Normal 0.00-0.30 [facility] Comment on above: Performed By: #### C BC, HEPXA, CMPX, MG, TSHX, TROPI #### [facility] [address] [place] [address] Shooting Gallery Operator: Dexter Fried MD #### LIPR #### [address] [address] Shooting Gallery Operator: Paco Tatum MD Abs.Neutrophil (Seg) 5.62 k/uL Normal 1.50-8.10 [facility] Comment on above: Performed By: #### C BC, HEPXA, CMPX, MG, TSHX, TROPI #### [facility] [address] [place] [address] Shooting Gallery Operator: Dexter Fried MD #### LIPR #### [address] [address] Shooting Gallery Operator: Paco Tatum MD Basophils/100 WBC (Bld) 1 % Normal 0-2 [facility] Comment on above: Performed By: #### C BC, HEPXA, CMPX, MG, TSHX, TROPI #### [facility] [address] [place] [address] Shooting Gallery Operator: Dexter Fried MD #### LIPR #### [address] [address] Shooting Gallery Operator: Paco Tatum MD Eosinophils (Bld) [#/Vol] 0.14 10*3/uL Normal 0.00-0.44 [facility] Comment on above: Performed By: #### C BC, HEPXA, CMPX, MG, TSHX, TROPI #### [facility] [address] [place] [address] Shooting Gallery Operator: Dexter Fried MD #### LIPR #### [address] [address] Shooting Gallery Operator: Paco Tatum MD Eosinophils/100 WBC (Bld) 2 % Normal 1-4 [facility] Comment on above: Performed By: #### C BC, HEPXA, CMPX, MG, TSHX, TROPI #### [facility] [address] [place] [address] Shooting Gallery Operator: Dexter Fried MD #### LIPR #### [address] [address] Shooting Gallery Operator: Paco Tatum MD Erythrocyte distribution width (RBC) [Ratio] 14.2 % Normal 11.8-14.4 [facility] Comment on above: Performed By: #### C BC, HEPXA, CMPX, MG, TSHX, TROPI #### [facility] [address] [place] [address] Shooting Gallery Operator: Dexter Fried MD #### LIPR #### [address] [address] Shooting Gallery Operator: Paco Tatum MD Hematocrit (Bld) [Volume fraction] 38.1 % Normal 36.3-47.1 [facility] Comment on above: Performed By: #### C BC, HEPXA, CMPX, MG, TSHX, TROPI #### [facility] [address] [place] [address] Shooting Gallery Operator: Dexter Fried MD #### LIPR #### [address] [address] Shooting Gallery Operator: Paco Tatum MD Hemoglobin (Bld) [Mass/Vol] 11.8 g/dL Low 11.9-15.1 [facility] Comment on above: Performed By: #### C BC, HEPXA, CMPX, MG, TSHX, TROPI #### [facility] [address] [place] [address] Shooting Gallery Operator: Dexter Fried MD #### LIPR #### [address] [address] Shooting Gallery Operator: Paco Tatum MD Immature granulocytes/100 WBC (Bld) 0 % Normal 0 [facility] Comment on above: Performed By: #### C BC, HEPXA, CMPX, MG, TSHX, TROPI #### [facility] [address] [place] [address] Shooting Gallery Operator: Dexter Fried MD #### LIPR #### [address] [address] Shooting Gallery Operator: Paco Tatum MD Lymphocytes (Bld) [#/Vol] 2.57 10*3/uL Normal 1.10-3.70 [facility] Comment on above: Performed By: #### C BC, HEPXA, CMPX, MG, TSHX, TROPI #### [facility] [address] [place] [address] Shooting Gallery Operator: Dexter Fried MD #### LIPR #### [address] [address] Shooting Gallery Operator: Paco Tatum MD Lymphocytes/100 WBC (Bld) 29 % Normal 24-43 [facility] Comment on above: Performed By: #### C BC, HEPXA, CMPX, MG, TSHX, TROPI #### [facility] [address] [place] [address] Shooting Gallery Operator: Dexter Fried MD #### LIPR #### [address] [address] Shooting Gallery Operator: Paco Tatum MD MCH (RBC) [Entitic mass] 26.5 pg Normal 25.2-33.5 [facility] Comment on above: Performed By: #### C BC, HEPXA, CMPX, MG, TSHX, TROPI #### [facility] [address] [place] [address] Shooting Gallery Operator: Dexter Fried MD #### LIPR #### [address] [address] Shooting Gallery Operator: Paco Tatum MD MCHC (RBC) [Mass/Vol] 31.0 g/dL Normal 28.4-34.8 [facility] Comment on above: Performed By: #### C BC, HEPXA, CMPX, MG, TSHX, TROPI #### [facility] [address] [place] [address] Shooting Gallery Operator: Dexter Fried MD #### LIPR #### [address] [address] Shooting Gallery Operator: Paco Tatum MD MCV (RBC) [Entitic vol] 85.6 fL Normal 82.6-102.9 [facility] Comment on above: Performed By: #### C BC, HEPXA, CMPX, MG, TSHX, TROPI #### [facility] [address] [place] [address] Shooting Gallery Operator: Dexter Fried MD #### LIPR #### [address] [address] Shooting Gallery Operator: Paco Tatum MD Monocytes (Bld) [#/Vol] 0.34 10*3/uL Normal 0.10-1.20 [facility] Comment on above: Performed By: #### C BC, HEPXA, CMPX, MG, TSHX, TROPI #### [facility] [address] [place] [address] Shooting Gallery Operator: Dexter Fried MD #### LIPR #### [address] [address] Shooting Gallery Operator: Paco Tatum MD Monocytes/100 WBC (Bld) 4 % Normal 3-12 [facility] Comment on above: Performed By: #### C BC, HEPXA, CMPX, MG, TSHX, TROPI #### [facility] [address] [place] [address] Shooting Gallery Operator: Dexter Fried MD #### LIPR #### [address] [address] Shooting Gallery Operator: Paco Tatum MD Neutrophil (Seg) 64 % Normal 36-65 [facility] Comment on above: Performed By: #### C BC, HEPXA, CMPX, MG, TSHX, TROPI #### [facility] [address] [place] [address] Shooting Gallery Operator: Dexter Fried MD #### LIPR #### [address] [address] Shooting Gallery Operator: Paco Tatum MD NRBC Automated 0.0 per 100 WBC Normal 0.0 [facility] Comment on above: Performed By: #### C BC, HEPXA, CMPX, MG, TSHX, TROPI #### [facility] [address] [place] [address] Shooting Gallery Operator: Dexter Fried MD #### LIPR #### [address] [address] Shooting Gallery Operator: Paco Tatum MD Platelet mean volume (Bld) [Entitic vol] 9.3 fL Normal 8.1-13.5 [facility] Comment on above: Performed By: #### C BC, HEPXA, CMPX, MG, TSHX, TROPI #### [facility] [address] [place] [address] Shooting Gallery Operator: Dexter Fried MD #### LIPR #### [address] [address] Shooting Gallery Operator: Paco Tatum MD Platelets (Bld) [#/Vol] 377 10*3/uL Normal 138-453 [facility] Comment on above: Performed By: #### C BC, HEPXA, CMPX, MG, TSHX, TROPI #### [facility] [address] [place] [address] Shooting Gallery Operator: Dexter Fried MD #### LIPR #### [address] [address] Shooting Gallery Operator: Paco Tatum MD RBC (Bld) [#/Vol] 4.45 10*6/uL Normal 3.95-5.11 [facility] Comment on above: Performed By: #### C BC, HEPXA, CMPX, MG, TSHX, TROPI #### [facility] [address] [place] [address] Shooting Gallery Operator: Dexter Fried MD #### LIPR #### [address] [address] Shooting Gallery Operator: Paco Tatum MD WBC (Bld) [#/Vol] 8.8 10*3/uL Normal 3.5-11.3 [facility] Comment on above: Performed By: #### C BC, HEPXA, CMPX, MG, TSHX, TROPI #### [facility] [address] [place] [address] Shooting Gallery Operator: Dexter Fried MD #### LIPR #### [address] [address] Shooting Gallery Operator: Paco Tatum MD XR CHEST PORTABLEon 12-06-19 [...] Elmira Cisneros MD 12/05/21 Final result Normal [facility] Stable chest without acute process. [facility] EXAMINATION: ONE XRAY VIEW OF THE CHEST 12/05/2021 3:55 pm COMPARISON: 11/30/2021 HISTORY: ORDERING SYSTEM PROVIDED HISTORY: cough Additional signs and symptoms: cough, sob and chest pain FINDINGS: The lungs are without acute focal process. No effusion or pneumothorax. The cardiomediastinal silhouette is stable. The osseous structures are intact without acute process. [facility] Elmira Cisneros MD - 12/05/2021 EXAMINATION: ONE XRAY VIEW OF THE CHEST 12/05/2021 3:55 pm COMPARISON: 11/30/2021 HISTORY: ORDERING SYSTEM PROVIDED HISTORY: cough Additional signs and symptoms: cough, sob and chest pain FINDINGS: The lungs are without acute focal process. No effusion or pneumothorax. The cardiomediastinal silhouette is stable. The osseous structures are intact without acute process. IMPRESSION: Stable chest without acute process. [employer]: Radiology Study observation (narrative) [employer]: XR CHEST PORTABLEOrdered By: Elmira Cisneros on 12-05-2021 [employer]: Prot. Electrophoresis, Uron 12-02-2021 Pathologist Review: ELECTRONICALLY SIGNED. DEXTER FRIED M.D. Normal [facility] Comment on above: Performed By: #### C BC, HEPXA, CMPX, MG, TSHX, TROPI #### [facility] [address] [place] [address] Shooting Gallery Operator: Dexter Fried MD #### LIPR #### [address] [address] Shooting Gallery Operator: Paco Tatum MD Ur.-Prot.Elect-Inter SLIGHTLY ELEVATED TOTAL PROTEIN CONCENTRATION. PATTERN OBSERVED IS INCREASED Normal [facility] Comment on above: Result Comment: CONC . OF LOW MOLECULAR WEIGHT PROTEINS. PATTERN MAY BE SEEN WITH MINIMAL RENAL DYSFUNCTION OR WITH VARIOUS INFLAMMITORY/INFECTIOUS PROCESSES IN THE BODY (OVERFLOW PROTEINURIA). Performed By: #### C BC, HEPXA, CMPX, MG, TSHX, TROPI #### [facility] [address] [place] [address] Shooting Gallery Operator: Dexter Fried MD #### LIPR #### [address] [address] Shooting Gallery Operator: Paco Tatum MD APTTon 12-01-2021 aPTT Coag (Bld) [Time] s Critically high 23.9-33.8 [facility] Comment on above: Result Comment: IV Heparin Therapy Range: 62.0-94.0 TEST CONFIRMED Performed By: #### C BC, HEPXA, CMPX, MG, TSHX, TROPI #### [facility] [address] [place] [address] Shooting Gallery Operator: Dexter Fried MD #### LIPR #### [address] [address] Shooting Gallery Operator: Paco Tatum MD aPTT Coag (Bld) [Time] 25.9 s Normal 23.9-33.8 [facility] Comment on above: Result Comment: IV Heparin Therapy Range: 62.0-94.0 Performed By: #### C BC, HEPXA, CMPX, MG, TSHX, TROPI #### [facility] [address] [place] [address] Shooting Gallery Operator: Dexter Fried MD #### LIPR #### [address] [id number] Shooting Gallery Operator: Paco Tatum MD aPTT Coag (Bld) [Time] s Critically high [facility] Comment on above: IV Heparin Therapy Range: 62.0-94.0 TEST CONFIRMED Interpretation and review of laboratory results Abnormal [facility] Anti-Xa, Unfractionated Hepa rinon 12-01-2021 Anti-XA Unfrac Heparin 0.5 [facility] CBCon 12-01-2021 Erythrocyte distribution width (RBC) [Ratio] 14.8 % High 11.8-14.4 [facility] Comment on above: Performed By: #### C BC, HEPXA, CMPX, MG, TSHX, TROPI #### [facility] [address] [place], [place] [id number] Shooting Gallery Operator: Dexter Fried MD #### LIPR #### [address] [phone] Shooting Gallery Operator: Paco Tatum MD Hematocrit (Bld) [Volume fraction] 33.3 % Low 36.3-47.1 [facility] Comment on above: Performed By: #### C BC, HEPXA, CMPX, MG, TSHX, TROPI #### [facility] [address] [place] [address] Shooting Gallery Operator: Dexter Fried MD #### LIPR #### [address] [phone] Shooting Gallery Operator: Paco Tatum MD Hemoglobin (Bld) [Mass/Vol] 10.2 g/dL Low 11.9-15.1 [facility] Comment on above: Performed By: #### C BC, HEPXA, CMPX, MG, TSHX, TROPI #### [facility] [address] [place] [address] Shooting Gallery Operator: Dexter Fried MD #### LIPR #### [address] [address] Shooting Gallery Operator: Paco Tatum MD MCH (RBC) [Entitic mass] 26.4 pg Normal 25.2-33.5 [facility] Comment on above: Performed By: #### C BC, HEPXA, CMPX, MG, TSHX, TROPI #### [facility] [address] [place] [address] Shooting Gallery Operator: Dexter Fried MD #### LIPR #### [address] [address] Shooting Gallery Operator: Paco Tatum MD MCHC (RBC) [Mass/Vol] 30.6 g/dL Normal 28.4-34.8 [facility] Comment on above: Performed By: #### C BC, HEPXA, CMPX, MG, TSHX, TROPI #### [facility] [address] [place] [address] Shooting Gallery Operator: Dexter Fried MD #### LIPR #### [address] [address] Shooting Gallery Operator: Paco Tatum MD MCV (RBC) [Entitic vol] 86.3 fL Normal 82.6-102.9 [facility] Comment on above: Performed By: #### C BC, HEPXA, CMPX, MG, TSHX, TROPI #### [facility] [address] [place] [address] Shooting Gallery Operator: Dexter Fried MD #### LIPR #### [address] [address] Shooting Gallery Operator: Paco Tatum MD NRBC Automated 0.0 per 100 WBC Normal 0.0 [facility] Comment on above: Performed By: #### C BC, HEPXA, CMPX, MG, TSHX, TROPI #### [facility] [address] [place] [address] Shooting Gallery Operator: Dexter Fried MD #### LIPR #### [address] [address] Shooting Gallery Operator: Paco Tatum MD Platelet mean volume (Bld) [Entitic vol] 8.9 fL Normal 8.1-13.5 [facility] Comment on above: Performed By: #### C BC, HEPXA, CMPX, MG, TSHX, TROPI #### [facility] [address] [place] [address] Shooting Gallery Operator: Dexter Fried MD #### LIPR #### [address] [address] Shooting Gallery Operator: Paco Tatum MD Platelets (Bld) [#/Vol] 314 10*3/uL Normal 138-453 [facility] Comment on above: Performed By: #### C BC, HEPXA, CMPX, MG, TSHX, TROPI #### [facility] [address] [place] [address] Shooting Gallery Operator: Dexter Fried MD #### LIPR #### [address] [address] Shooting Gallery Operator: Paco Tatum MD RBC (Bld) [#/Vol] 3.86 10*6/uL Low 3.95-5.11 [facility] Comment on above: Performed By: #### C BC, HEPXA, CMPX, MG, TSHX, TROPI #### [facility] [address] [place] [address] Shooting Gallery Operator: Dexter Fried MD #### LIPR #### [facility] [address] [place], [place] [phone] Shooting Gallery Operator: Paco Tatum MD WBC (Bld) [#/Vol] 10.0 10*3/uL Normal 3.5-11.3 [facility] Comment on above: Performed By: #### C BC, HEPXA, CMPX, MG, TSHX, TROPI #### [facility] [address] [place], [place] [phone] Shooting Gallery Operator: Dexter Fried MD #### LIPR #### [facility] [address] [place], [place] [phone] Shooting Gallery Operator: Paco Tatum MD Hematocrit (Bld) [Volume fraction] 33.3 % Low 36.3 - 47.1 % [facility] Hemoglobin.gastroint estinal spec 1 Ql (Stl) 10.2 g/dL Low 11.9 - 15.1 g/dL [facility] Interpretation and review of laboratory results Abnormal [facility] MCH (RBC) [Entitic mass] 26.4 pg 25.2 - 33.5 pg [facility] MCHC (RBC) [Mass/Vol] 30.6 g/dL 28.4 - 34.8 g/dL [facility] MCV (RBC) [Entitic vol] 86.3 fL 82.6 - 102.9 fL [facility] NRBC Automated 0.0 0.0 per 100 WBC [facility] Platelet distribution width (Bld) [Ratio] 14.8 % High 11.8 - 14.4 % [facility] Platelet mean volume (Bld) [Entitic vol] 8.9 fL 8.1 - 13.5 fL [facility] Platelets (Bld) [#/Vol] 314 10*3/uL [facility] RBC (Bld) [#/Vol] 3.86 10*6/uL Low 3.95 - 5.1 1 m/uL [facility] WBC (Bld) [#/Vol] 10.0 10*3/uL [facility] Erythrocyte distribution width (RBC) [Ratio] 14.8 % High 11.8-14.4 [facility] Comment on above: Performed By: #### P T, TROPI, PTT, CBC #### [facility] [address] [facility] [place] [address] Shooting Gallery Operator: Dexter Fried MD Hematocrit (Bld) [Volume fraction] 33.6 % Low 36.3-47.1 [facility] Comment on above: Performed By: #### P T, TROPI, PTT, CBC #### [facility] [place] [address] Shooting Gallery Operator: Dexter Fried MD Hemoglobin (Bld) [Mass/Vol] 10.4 g/dL Low 11.9-15.1 [facility] Comment on above: Performed By: #### P T, TROPI, PTT, CBC #### [facility] [address] [place] [address]. [place] [address] Shooting Gallery Operator: Dexter Fried MD MCH (RBC) [Entitic mass] 26.7 pg Normal 25.2-33.5 [facility] Comment on above: Performed By: #### P T, TROPI, PTT, CBC #### [facility] [address] [place] [address]. [place] [address] Shooting Gallery Operator: Dexter rFied MD MCHC (RBC) [Mass/Vol] 31.0 g/dL Normal 28.4-34.8 [facility] Comment on above: Performed By: #### P T, TROPI, PTT, CBC #### [facility] [address] [place] [address] Shooting Gallery Operator: Dexter Fried MD MCV (RBC) [Entitic vol] 86.2 fL Normal 82.6-102.9 [facility] Comment on above: Performed By: #### P T, TROPI, PTT, CBC #### [facility] [address] [place] [address] Shooting Gallery Operator: Dexter Fried MD NRBC Automated 0.0 per 100 WBC Normal 0.0 [facility] Comment on above: Performed By: #### P T, TROPI, PTT, CBC #### [facility] [address] [place] [address] Shooting Gallery Operator: Dexter Fried MD Platelet mean volume (Bld) [Entitic vol] 9.1 fL Normal 8.1-13.5 [facility] Comment on above: Performed By: #### P T, TROPI, PTT, CBC #### [facility] [address] [place] [address] Shooting Gallery Operator: Dexter Fried MD Platelets (Bld) [#/Vol] 342 10*3/uL Normal 138-453 [facility] Comment on above: Performed By: #### P T, TROPI, PTT, CBC #### [facility] [address] [place] [address] Shooting Gallery Operator: Dexter Fried MD RBC (Bld) [#/Vol] 3.90 10*6/uL Low 3.95-5.11 [facility] Comment on above: Performed By: #### P T, TROPI, PTT, CBC #### [facility] [address] [facility] [place] [address] Shooting Gallery Operator: Dexter Fried MD WBC (Bld) [#/Vol] 10.4 10*3/uL Normal 3.5-11.3 [facility] Comment on above: Performed By: #### P T, TROPI, PTT, CBC #### [facility] [address] [place] [address] Shooting Gallery Operator: Dexter Fried MD Hematocrit (Bld) [Volume fraction] 33.6 % Low 36.3 - 47.1 % [facility] Hemoglobin.gastroint estinal spec 1 Ql (Stl) 10.4 g/dL Low 11.9 - 15.1 g/dL [facility] Interpretation and review of laboratory results Abnormal [facility] MCH (RBC) [Entitic mass] 26.7 pg 25.2 - 33.5 pg [facility] MCHC (RBC) [Mass/Vol] 31.0 g/dL 28.4 - 34.8 g/dL [facility] MCV (RBC) [Entitic vol] 86.2 fL 82.6 - 102.9 fL [facility] NRBC Automated 0.0 0.0 per 100 WBC [facility] Platelet distribution width (Bld) [Ratio] 14.8 % High 11.8 - 14.4 % [facility] Platelet mean volume (Bld) [Entitic vol] 9.1 fL 8.1 - 13.5 fL [facility] Platelets (Bld) [#/Vol] 342 10*3/uL [facility] DDN RBC (Bld) [#/Vol] 3.90 10*6/uL Low 3.95 - 5.1 1 m/uL [facility] WBC (Bld) [#/Vol] 10.4 10*3/uL [facility] CT CHEST PULMONARY EMBOLISM W CONTRASTon [...] were called by Dr. Ernie Gamino to CASE CHECKER Bandar Vaughan on 11/30/2021 at 10:54 p.m. hours. RECOMMENDATIONS: 1.3 cm incidental right thyroid nodule with heterogeneous and enlarged thyroid. Recommend thyroid US. Reference: J Am Sukhjinder Radiol. 2015 Oct;12(2): 143-50 Interpreted by: Ernie Gamino DO Signed by: Ernie Gamino DO 11/30/21 Final result Normal [facility] Comp Metabolic Pr/rfx MGon 0 12-01-2021 (cont.) Normal [facility] Comment on above: Result Comment: Aver age GFR for 20-29 years old: 116 mL/min/1.73sq m Chronic Kidney Disease: <60 mL/min/1.73sq m Kidney failure: <15 mL/min/1.73sq m eGFR calculated using average adult body mass. Additional eGFR calculator available at: http://www.[employer]ango[employer]/multiple_crcl_2012.htm Performed By: #### C BC, HEPXA, CMPX, MG, TSHX, TROPI #### [facility] [address] [place] [address] Shooting Gallery Operator: Dexter Fried MD #### LIPR #### [address] [address] Shooting Gallery Operator: Paco Tatum MD Albumin [Mass/Vol] 3.4 g/dL Low 3.5-5.2 [facility] Comment on above: Performed By: #### C BC, HEPXA, CMPX, MG, TSHX, TROPI #### [facility] [address] [place] [address] Shooting Gallery Operator: Dexter Fried MD #### LIPR #### [address] [address] Shooting Gallery Operator: Paco Tatum MD Alkaline Phos 93 U/L Normal 35-104 [facility] Comment on above: Performed By: #### C BC, HEPXA, CMPX, MG, TSHX, TROPI #### [facility] [address] [place] [address] Shooting Gallery Operator: Dexter Fried MD #### LIPR #### [address] [address] Shooting Gallery Operator: Paco Tatum MD ALT [Catalytic activity/Vol] 28 U/L Normal 5-33 [facility] Comment on above: Performed By: #### C BC, HEPXA, CMPX, MG, TSHX, TROPI #### [facility] [address] [place] [address] Shooting Gallery Operator: Dexter Fried MD #### LIPR #### [address] [address] Shooting Gallery Operator: Paco Tatum MD Anion gap [Moles/Vol] 7 mmol/L Low 9-17 [facility] Comment on above: Performed By: #### C BC, HEPXA, CMPX, MG, TSHX, TROPI #### [facility] [address] [place] [address] Shooting Gallery Operator: Dexter Fried MD #### LIPR #### [address] [address] Shooting Gallery Operator: Paco Tatum MD AST [Catalytic activity/Vol] 16 U/L Normal <32 [facility] Comment on above: Performed By: #### C BC, HEPXA, CMPX, MG, TSHX, TROPI #### [facility] [address] [place] [address] Shooting Gallery Operator: Dexter Fried MD #### LIPR #### [address] [address] Shooting Gallery Operator: Paco Tatum MD Bilirubin [Mass/Vol] 0.18 mg/dL Low 0.3-1.2 [facility] Comment on above: Performed By: #### C BC, HEPXA, CMPX, MG, TSHX, TROPI #### [facility] [address] [place] [address] Shooting Gallery Operator: Dexter Fried MD #### LIPR #### [address] [address] Shooting Gallery Operator: Paco Tatum MD BUN/CRE Ratio 21 High 9-20 [facility] Comment on above: Performed By: #### C BC, HEPXA, CMPX, MG, TSHX, TROPI #### [facility] [address] [place] [address] Shooting Gallery Operator: Dexter Fried MD #### LIPR #### [address] [address] Shooting Gallery Operator: Paoc Tatum MD Calcium [Mass/Vol] 8.5 mg/dL Low 8.6-10.4 [facility] Comment on above: Performed By: #### C BC, HEPXA, CMPX, MG, TSHX, TROPI #### [facility] [address] [place] [address] Shooting Gallery Operator: Dexter Fried MD #### LIPR #### [address] [address] Shooting Gallery Operator: Paco Tatum MD Chloride [Moles/Vol] 105 mmol/L Normal 98-107 [facility] Comment on above: Performed By: #### C BC, HEPXA, CMPX, MG, TSHX, TROPI #### [facility] [address] [place] [address] Shooting Gallery Operator: Dexter Fried MD #### LIPR #### [address] [address] Shooting Gallery Operator: Paco Tatum MD CO2 [Moles/Vol] 25 mmol/L Normal 20-31 [facility] Comment on above: Performed By: #### C BC, HEPXA, CMPX, MG, TSHX, TROPI #### [facility] [address] [place] [address] Shooting Gallery Operator: Dexter Fried MD #### LIPR #### [address] [address] Shooting Gallery Operator: Paco Tatum MD Creatinine [Mass/Vol] 0.61 mg/dL Normal 0.50-0.90 [facility] Comment on above: Performed By: #### C BC, HEPXA, CMPX, MG, TSHX, TROPI #### [facility] [address] [place] [address] Shooting Gallery Operator: Dexter Fried MD #### LIPR #### [address] [address] Shooting Gallery Operator: Paco Tatum MD GFR, Amer >60 Normal >60 [facility] Comment on above: Performed By: #### C BC, HEPXA, CMPX, MG, TSHX, TROPI #### [facility] [address] [place] [address] Shooting Gallery Operator: Dexter Fried MD #### LIPR #### [address] [address] Shooting Gallery Operator: Paco Tatum MD GFR,non Amer >60 Normal >60 [facility] Comment on above: Performed By: #### C BC, HEPXA, CMPX, MG, TSHX, TROPI #### [facility] [address] [place] [address] Shooting Gallery Operator: Dexter Fried MD #### LIPR #### [address] [address] Shooting Gallery Operator: Paco Tatum MD Glucose [Mass/Vol] 90 mg/dL Normal 70-99 [facility] Comment on above: Performed By: #### C BC, HEPXA, CMPX, MG, TSHX, TROPI #### [facility] [address] [place] [address] Shooting Gallery Operator: Dexter Fried MD #### LIPR #### [address] [address] Shooting Gallery Operator: Paco Tatum MD Potassium [Moles/Vol] 4.0 mmol/L Normal 3.7-5.3 [facility] Comment on above: Performed By: #### C BC, HEPXA, CMPX, MG, TSHX, TROPI #### [facility] [address] [place] [address] Shooting Gallery Operator: Dexter Fried MD #### LIPR #### [address] [address] Shooting Gallery Operator: Paco Tatum MD Protein [Mass/Vol] 6.3 g/dL Low 6.4-8.3 [facility] Comment on above: Performed By: #### C BC, HEPXA, CMPX, MG, TSHX, TROPI #### [facility] [address] [place] [address] Shooting Gallery Operator: Dexter Fried MD #### LIPR #### [address] [address] Shooting Gallery Operator: Paco Tatum MD Sodium [Moles/Vol] 137 mmol/L Normal 135-144 [facility] Comment on above: Performed By: #### C BC, HEPXA, CMPX, MG, TSHX, TROPI #### [facility] [address] [place] [address] Shooting Gallery Operator: Dexter Fried MD #### LIPR #### [address] [address] Shooting Gallery Operator: Paco Tatum MD Urea nitrogen [Mass/Vol] 13 mg/dL Normal 6-20 [facility] Comment on above: Performed By: #### C BC, HEPXA, CMPX, MG, TSHX, TROPI #### [facility] [address] [place] [address] Shooting Gallery Operator: Dexter Fried MD #### LIPR #### [address] [address] Shooting Gallery Operator: Paco Tatum MD Comprehensive Metabolic Pane l w/ Reflex to MGon 12-01-2021 Albumin [Mass/Vol] 3.4 g/dL Low 3.5 - 5.2 g/dL [facility] [employer] [facility] ALP (Bld) [Catalytic activity/Vol] 93 U/L 35 - 104 U/L [facility] ALT [Catalytic activity/Vol] 28 U/L 5 - 33 U/L [facility] Anion gap [Moles/Vol] 7 mmol/L Low 9 - 17 mmol/L [facility] AST [Catalytic activity/Vol] 16 U/L <32 [facility] Bilirubin [Mass/Vol] 0.18 mg/dL Low 0.3 - 1 .2 mg/dL [facility] [employer] [facility] Calcium [Mass/Vol] 8.5 mg/dL Low 8.6 - 10. 4 mg/dL [facility] Chloride [Moles/Vol] 105 mmol/L 98 - 10 7 mmol/L [facility] CO2 [Moles/Vol] 25 mmol/L 20 - 31 mmol/L [facility] Creatinine [Mass/Vol] 0.61 mg/dL 0.50 - 0.90 mg/dL [facility] Free PSA/Total PSA [Mass fraction] 6.3 g/dL Low 6.4 - 8.3 g/dL [facility] [employer] [facility] GFR >60 >60 mL/min HowDo GFR Non- >60 >60 mL/min [facility] GFR/1.73 sq M.predicted MDRD (S/P/Bld) [Vol rate/Area] [facility] Comment on above: Average GFR for 20-2 9 years old: 116 mL/min/1.73sq m Chronic Kidney Disease: <60 mL/min/1.73sq m Kidney failure: <15 mL/min/1.73sq m eGFR calculated using average adult body mass. Additional eGFR calculator available at: http://www.[employer]/multiple_crcl_2011.htm Glucose [Mass/Vol] 90 mg/dL 70 - 99 mg/dL [facility]N Interpretation and review of laboratory results Abnormal [facility] Potassium [Moles/Vol] 4.0 mmol/L 3.7 - 5.3 mmol/L [facility] Sodium [Moles/Vol] 137 mmol/L 135 - 144 mmol/L [facility] Urea nitrogen (BldV) [Mass/Vol] 13 mg/dL 6 - 20 mg/dL [facility] Urea nitrogen/Creatinine (Bld) [Mass ratio] 21 High [facility] Echocardiogram 2D W M-Modeon 12-01-2021 [facility] Transthoracic Echocardiography Report (TTE) Patient Name MILLIE Date of Study 12/01/2021 SHIRA Date of 1995 Gender Female Age 26 year(s) Race Room Number 2042 Height: 61 inch, 154.94 cm Corporate ID [id number] Weight: 279 pounds, 126.6 kg # Patient Acct [id number] BSA: 2.18 m^2 BMI: 52.72 # kg/m^2 MR # [id number] Typesetting Machine Operator/Tender Ashley Mendez Interpreting Physician Mata Mar Fellow Referring Nurse Practitioner Interpreting Referring Physician Marilee Medina Fellow Type of Study TTE procedure:2D Echocardiogram, M-Mode, Doppler, Color Doppler. Procedure Date Date: 12/01/2021 Start: 02:19 PM Study Location: [facility] Technical Quality: Adequate visualization Indications:Pulmonary embolus. [...] velocity:0.09 m/s Lateral Wall E' velocity:0.13 m/s [facility] Mata Mar MD - 12/01/2021 [facility] Transthoracic Echocardiography Report (TTE) Patient Name MILLIE Date of Study 12/01/2021 SHIRA Date of 1995 Gender Female Age 26 year(s) Race Room Number 2042 Height: 61 inch, 154.94 cm Corporate ID [id number] Weight: 279 pounds, 126.6 kg # Patient Acct [id number] BSA: 2.18 m^2 BMI: 52.72 # kg/m^2 MR # [id number] Typesetting Machine Operator/Tender Ashley Mendez Interpreting Physician Mata Mar Fellow Referring Nurse Practitioner Interpreting Referring Physician Marilee Medina Fellow Type of Study TTE procedure:2D Echocardiogram, M-Mode, Doppler, Color Doppler. Procedure Date Date: 12/01/2021 Start: 02:19 PM Study Location: [facility] Technical Quality: Adequate visualization Indications:Pulmonary embolus. [...] velocity:0.09 m/s Lateral Wall E' velocity:0.13 m/s [facility] [employer] Phone: Echocardiogram 2D W M-ModeOr dered By: Mata Mar on 12-01-2021 [facility] [employer] Phone: Heparin Anti-Xaon 12-01-2021 Heparin Anti-Xa 0.50 IU/L Normal 0.30-0.70 [facility] Comment on above: Performed By: #### C BC, HEPXA, CMPX, MG, TSHX, TROPI #### [facility] [address] [place] [address] Shooting Gallery Operator: Dexter Fried MD #### LIPR #### [facility] [address] [place] [id number] Shooting Gallery Operator: Paco Tatum MD Lipid Profileon 12-01-2021 Cholesterol [Mass/Vol] 217 mg/dL High <200 [facility] Comment on above: Result Comment: Cholesterol Guidelines: <200 Desirable 200-240 Borderline >240 Undesirable Performed By: #### C BC, HEPXA, CMPX, MG, TSHX, TROPI #### [facility] [address] [place], [place] [id number] Shooting Gallery Operator: Dexter Fried MD #### LIPR #### [facility] [address] [place] [address] Shooting Gallery Operator: Paco Tatum MD Cholesterol in HDL [Mass/Vol] 49 mg/dL Normal >40 [facility] Comment on above: Result Comment: HDL Guidelines: <40 Undesirable 40-59 Borderline >59 Desirable Performed By: #### C BC, HEPXA, CMPX, MG, TSHX, TROPI #### [facility] [address] [place] [address] Shooting Gallery Operator: Dexter Fried MD #### LIPR #### [address] [address] Shooting Gallery Operator: Paco Tatum MD Cholesterol in LDL [Mass/Vol] 112 mg/dL Normal 0-130 [facility] Comment on above: Result Comment: LDL Guidelines: <100 Desirable 100-129 Near to/above Desirable 130-159 Borderline >159 Undesirable Direct (measured) LDL and calculated LDL are not interchangeable tests. Performed By: #### C BC, HEPXA, CMPX, MG, TSHX, TROPI #### [facility] [address] [place] [address] Shooting Gallery Operator: Dexter Fried MD #### LIPR #### [address] [address] Shooting Gallery Operator: Paco Tatum MD Cholesterol.total/Ch olesterol in HDL [Mass ratio] 4.4 {ratio} Normal <5 [facility] Comment on above: Performed By: #### C BC, HEPXA, CMPX, MG, TSHX, TROPI #### [facility] [place] [address] Shooting Gallery Operator: Dexter Fried MD #### LIPR #### [address] [address] Shooting Gallery Operator: Paco Tatum MD Triglyceride [Mass/Vol] 281 mg/dL High <150 [facility] Comment on above: Result Comment: Triglyceride Guidelines: <150 Desirable 150-199 Borderline 200-499 High >499 Very high Based on AHA Guidelines for fasting triglyceride, June 2012. Performed By: #### C BC, HEPXA, CMPX, MG, TSHX, TROPI #### [facility] [address] [place], [place] [phone] Shooting Gallery Operator: Dexter Fried MD #### LIPR #### [facility] [address] [place], [place] [phone] Shooting Gallery Operator: Paco Tatum MD Lipid panel - fasting 11-09 Cholesterol [Mass/Vol] 217 mg/dL High <200 [facility] Comment on above: Cholesterol Guidelines: <200 Desirable 200-240 Borderline >240 Undesirable Cholesterol in HDL [Mass/Vol] 49 mg/dL >40 [facility] Comment on above: HDL Guidelines: <40 Undesirable 40-59 Borderline >59 Desirable Cholesterol in LDL [Mass/Vol] 112 mg/dL 0 - 130 mg/dL [facility] Comment on above: LDL Guidelines: <100 Desirable 100-129 Near to/above Desirable 130-159 Borderline >159 Undesirable Direct (measured) LDL and calculated LDL are not interchangeable tests. Cholesterol.total/Ch olesterol in HDL [Mass ratio] 4.4 {ratio} <5 [facility] Interpretation and review of laboratory results Abnormal [facility] Triglyceride [Mass/Vol] 281 mg/dL High <150 [facility] Comment on above: Triglyceride Guidelines: <150 Desirable 150-199 Borderline 200-499 High >499 Very high Based on AHA Guidelines for fasting triglyceride, June 2012. [facility] Magnesiumon 12-01-2021 Magnesium [Mass/Vol] 1.9 mg/dL Normal 1.6-2.6 [facility] Comment on above: Performed By: #### C BC, HEPXA, CMPX, MG, TSHX, TROPI #### [facility] [address] [place], [place] [id number] Shooting Gallery Operator: Dexter Fried MD #### LIPR #### [address] [id number] Shooting Gallery Operator: Paco Tatum MD Magnesium [Mass/Vol] 1.9 mg/dL 1.6 - 2 .6 mg/dL [facility] No Panel Informationon 12-01 [facility] POC Glucose Fingerstickon Glucose [Mass/Vol] 91 mg/dL 65 - 105 mg/dL [facility] PTon 12-01-2021 INR Coag (PPP) [Relative time] 1.3 {INR} Normal [facility] Comment on above: Result Comment: Non-therapeutic Range: INR = 0.9-1.2 Therapeutic Range: Moderate Anticoagulant Intensity: INR = 2.0-3.0 High Anticoagulant Intensity: INR = 2.5-3.5 Performed By: #### C BC, HEPXA, CMPX, MG, TSHX, TROPI #### [facility] [address] [place] [address] Shooting Gallery Operator: Dexter Fried MD #### LIPR #### [address] [address] Shooting Gallery Operator: Paco Tatum MD PT Coag (PPP) [Time] 16.0 s High 11.5-14.2 [facility] Comment on above: Performed By: #### C BC, HEPXA, CMPX, MG, TSHX, TROPI #### [facility] [address] [place] [address] Shooting Gallery Operator: Dexter Fried MD #### LIPR #### [address] [phone] Shooting Gallery Operator: Paco Tatum MD INR Coag (PPP) [Relative time] 1.1 {INR} Normal [facility] Comment on above: Result Comment: Non-therapeutic Range: INR = 0.9-1.2 Therapeutic Range: Moderate Anticoagulant Intensity: INR = 2.0-3.0 High Anticoagulant Intensity: INR = 2.5-3.5 Performed By: #### C BC, HEPXA, CMPX, MG, TSHX, TROPI #### [facility] [place] [address] Shooting Gallery Operator: Dexter Fried MD #### LIPR #### [address] [phone] Shooting Gallery Operator: Paco Tatum MD PT Coag (PPP) [Time] 14.0 s Normal 11.5-14.2 [facility] Comment on above: Performed By: #### C BC, HEPXA, CMPX, MG, TSHX, TROPI #### [facility] [address] [place] [address] Shooting Gallery Operator: Dexter Fried MD #### LIPR #### [address] [address] Shooting Gallery Operator: Paco Tatum MD Prot. Electrophoresis, Uron 12-01-2021 Total Protein Conc. 15 mg/dL Normal [facility] Comment on above: Performed By: #### C BC, HEPXA, CMPX, MG, TSHX, TROPI #### [facility] [address] [place] [address] Shooting Gallery Operator: Dexter rFied MD #### LIPR #### [address] [address] Shooting Gallery Operator: Paco Tatum MD Protein / creatinine ratio, urineon 12-01-2021 Creatinine, Ur 96.1 mg/dL 28.0 - 217.0 mg/dL [facility] Protein (U) [Mass/Vol] 15 mg/dL [facility] Comment on above: No normal range esta blished. Urine Total Protein Creatinine Ratio 0.16 [facility] Protein,Tot,Barnum Uron 2021 Creatinine [Mass/Vol] 96.1 mg/dL Normal 28.0-217.0 [facility] Comment on above: Performed By: #### C BC, HEPXA, CMPX, MG, TSHX, TROPI #### [facility] [place] [address] Shooting Gallery Operator: Dexter Fried MD #### LIPR #### [address] [address] Shooting Gallery Operator: Paco Tatum MD Tot Prot. Conc. 15 mg/dL Normal [facility] Comment on above: Result Comment: No n ormal range established. Performed By: #### C BC, HEPXA, CMPX, MG, TSHX, TROPI #### [facility] [address] [place] [address] Shooting Gallery Operator: Dexter Fried MD #### LIPR #### [address] [address] Shooting Gallery Operator: Paco Tatum MD TP/Cre Ratio 0.16 Normal 0.00-0.20 [facility] Comment on above: Performed By: #### C BC, HEPXA, CMPX, MG, TSHX, TROPI #### [facility] [address] [place] [address] Shooting Gallery Operator: Dexter Fried MD #### LIPR #### [address] [address] Shooting Gallery Operator: Paco Tatum MD Protime-INRon 12-01-2021 INR Coag (Bld) [Relative time] 1.3 {INR} [facility] Comment on above: Non-therapeutic Range: INR = 0.9-1.2 Therapeutic Range: Moderate Anticoagulant Intensity: INR = 2.0-3.0 High Anticoagulant Intensity: INR = 2.5-3.5 Interpretation and review of laboratory results Abnormal [facility] PT Coag (PPP) [Time] 16 s High [facility] TSH w/reflex to FT4on 2021 TSH Qn 2.20 m[IU]/L Normal 0.30-5.00 [facility] Comment on above: Performed By: #### C BC, HEPXA, CMPX, MG, TSHX, TROPI #### [facility] [address] [place] [address] Shooting Gallery Operator: Dexter Fried MD #### LIPR #### [facility] [address] [place], [place] [phone] Shooting Gallery Operator: Paco Tatum MD TSH Qn 2.20 m[IU]/L [facility] Troponinon 12-01-2021 Troponin, High Sens <6 Normal 0-14 [facility] Comment on above: Result Comment: High Sensitivity Troponin values cannot be compared with other Troponin methodologies. Patients with high levels of Biotin oral intake (i.e >5mg/day) may have falsely decreased Troponin levels. Samples collected within 8 hours of biotin intake may require additional information for diagnosis. Performed By: #### C BC, HEPXA, CMPX, MG, TSHX, TROPI #### [facility] [address] [place] [address] Shooting Gallery Operator: Dexter Fried MD #### LIPR #### [facility] [address] [place], [place] [phone] Shooting Gallery Operator: Paco Tatum MD Troponin, High Sensitivity <6 0 - 14 ng/L [facility] Comment on above: High Sensitivity Troponin values cannot be compared with other Troponin methodologies. Patients with high levels of Biotin oral intake (i.e >5mg/day) may have falsely decreased Troponin levels. Samples collected within 8 hours of biotin intake may require additional information for diagnosis. Troponin, High Sens <6 Normal 0-14 [facility] Comment on above: Result Comment: High Sensitivity Troponin values cannot be compared with other Troponin methodologies. Patients with high levels of Biotin oral intake (i.e >5mg/day) may have falsely decreased Troponin levels. Samples collected within 8 hours of biotin intake may require additional information for diagnosis. Performed By: #### C BC, HEPXA, CMPX, MG, TSHX, TROPI #### [facility] [address] [place] [address] Shooting Gallery Operator: Dexter Fried MD #### LIPR #### [address] [phone] Shooting Gallery Operator: Paco Tatum MD Troponin, High Sensitivity <6 0 - 14 ng/L [facility] Comment on above: High Sensitivity Troponin values cannot be compared with other Troponin methodologies. Patients with high levels of Biotin oral intake (i.e >5mg/day) may have falsely decreased Troponin levels. Samples collected within 8 hours of biotin intake may require additional information for diagnosis. [facility] Troponin, High Sens <6 Normal 0-14 [facility] Comment on above: Result Comment: High Sensitivity Troponin values cannot be compared with other Troponin methodologies. Patients with high levels of Biotin oral intake (i.e >5mg/day) may have falsely decreased Troponin levels. Samples collected within 8 hours of biotin intake may require additional information for diagnosis. Performed By: #### C BC, HEPXA, CMPX, MG, TSHX, TROPI #### [facility] [address] [place] [address] [phone] Shooting Gallery Operator: Dexter Fried MD #### LIPR #### [address] [phone] Shooting Gallery Operator: Paco Tatum MD APTTon 11-30-2021 aPTT Coag (Bld) [Time] 25.9 s [facility] Comment on above: IV Heparin Therapy Range: 62.0-94.0 [facility] Brain Natri. Peptideon 11-30 Natriuretic peptide B (Bld) [Mass/Vol] 31 pg/mL Normal <300 [facility] Comment on above: Result Comment: An age-independent cutoff point of 300 pg/ml has a 98% negative predictive value excluding acute heart failure. Performed By: #### C KELLY HEPXA, CMPX, MG, TSHX, TROPI #### [facility] [address] [place] [address] Shooting Gallery Operator: Dexter Fried MD #### LIPR #### [facility] [address] [place], [place] [phone] Shooting Gallery Operator: Paco Tatum MD Brain Natriuretic Peptideon 11-30-2021 Natriuretic peptide B (Bld) [Mass/Vol] 31 pg/mL <300 [facility] Comment on above: An age-independent cutoff point of 300 pg/ml has a 98% negative predictive value excluding acute heart failure. CBC with Auto Differentialon 11-30-2021 Absolute Eos # 0.22 [facility] th Absolute Immature Granulocyte 0.11 [facility] [employer] [facility] Absolute Lymph # 2.99 [facility] [place] # 0.[address] [facility] lt Basophils (Bld) [#/Vol] 0.08 10*3/uL [facility] Basophils/100 WBC (Bld) 1 % 0 - 2 % [employer] Eosinophils/100 WBC (Bld) 2 % 1 - 4 % [employer] Hematocrit (Bld) [Volume fraction] 35.0 % Low 36.3 - 47.1 % [employer] Hemoglobin.gastroint estinal spec 1 Ql (Stl) 10.8 g/dL Low 11.9 - 15.1 g/dL [facility] Immature granulocytes/100 WBC (Bld) 1 % High 0 [facility] Interpretation and review of laboratory results Abnormal [facility] Lymphocytes/100 WBC (Bld) 29 % 24 - 43 % [facility] MCH (RBC) [Entitic mass] 26.6 pg 25.2 - 33.5 pg [facility] MCHC (RBC) [Mass/Vol] 30.9 g/dL 28.4 - 34.8 g/dL [facility] MCV (RBC) [Entitic vol] 86.2 fL 82.6 - 102.9 fL [facility] Monocytes/100 WBC (Bld) 6 % 3 - 12 % [facility] NRBC Automated 0.0 0.0 per 100 WBC [facility] Platelet distribution width (Bld) [Ratio] 14.8 % High 11.8 - 14.4 % [facility] Platelet mean volume (Bld) [Entitic vol] 9.1 fL 8.1 - 13.5 fL [facility] Platelets (Bld) [#/Vol] 351 10*3/uL [facility] RBC (Bld) [#/Vol] 4.06 10*6/uL 3.95 - 5.1 1 m/uL [facility] RBC (Bld) [#/Vol] ANISOCYTOSIS PRESENT [facility] Segmented neutrophils/100 WBC (Bld) 61 % 36 - 65 % [facility] Segs [facility] 6.17 [facility] [#/Vol] 10.2 10*3/uL [facility] CBC with Diffon 11-30-2021 Abs. Basophil 0.08 k/uL Normal 0.00-0.20 [facility] Comment on above: Performed By: #### C BC, HEPXA, CMPX, MG, TSHX, TROPI #### [facility] [address] [place] [address] Shooting Gallery Operator: Dexter Fried MD #### LIPR #### [place] [address] Shooting Gallery Operator: Paco Tatum MD Abs.Imm.Granulocyte 0.11 k/uL Normal 0.00-0.30 [facility] Comment on above: Performed By: #### C BC, HEPXA, CMPX, MG, TSHX, TROPI #### [facility] [address] [place] [address] Shooting Gallery Operator: Dexter Fried MD #### LIPR #### [place] [address] Shooting Gallery Operator: Paco Tatum MD Abs.Neutrophil (Seg) 6.17 k/uL Normal 1.50-8.10 [facility] Comment on above: Performed By: #### C BC, HEPXA, CMPX, MG, TSHX, TROPI #### [facility] [address] [place] [address] Shooting Gallery Operator: Dexter Fried MD #### LIPR #### [address] [address] Shooting Gallery Operator: Paco Tatum MD Basophils/100 WBC (Bld) 1 % Normal 0-2 [facility] Comment on above: Performed By: #### C BC, HEPXA, CMPX, MG, TSHX, TROPI #### [facility] [address] [place] [address] Shooting Gallery Operator: Dexter Fried MD #### LIPR #### [address] [address] Shooting Gallery Operator: Paco Tatum MD Eosinophils (Bld) [#/Vol] 0.22 10*3/uL Normal 0.00-0.44 [facility] Comment on above: Performed By: #### C BC, HEPXA, CMPX, MG, TSHX, TROPI #### [facility] [address] [place] [address] Shooting Gallery Operator: Dexter Fried MD #### LIPR #### [address] [address] Shooting Gallery Operator: Paco Tatum MD Eosinophils/100 WBC (Bld) 2 % Normal 1-4 [facility] Comment on above: Performed By: #### C BC, HEPXA, CMPX, MG, TSHX, TROPI #### [facility] [address] [place] [address] Shooting Gallery Operator: Dexter Fried MD #### LIPR #### [address] [address] Shooting Gallery Operator: Paco Tatum MD Erythrocyte distribution width (RBC) [Ratio] 14.8 % High 11.8-14.4 [facility] Comment on above: Performed By: #### C BC, HEPXA, CMPX, MG, TSHX, TROPI #### [facility] [address] [place] [address] Shooting Gallery Operator: Dexter Fried MD #### LIPR #### [address] [address] Shooting Gallery Operator: Paco Tatum MD Hematocrit (Bld) [Volume fraction] 35.0 % Low 36.3-47.1 [facility] Comment on above: Performed By: #### C BC, HEPXA, CMPX, MG, TSHX, TROPI #### [facility] [address] [place] [address] Shooting Gallery Operator: Dexter Fried MD #### LIPR #### [address] [address] Shooting Gallery Operator: Paco Tatum MD Hemoglobin (Bld) [Mass/Vol] 10.8 g/dL Low 11.9-15.1 [facility] Comment on above: Performed By: #### C BC, HEPXA, CMPX, MG, TSHX, TROPI #### [facility] [address] [place] [address] Shooting Gallery Operator: Dexter Fried MD #### LIPR #### [address] [address] Shooting Gallery Operator: Paco Tatum MD Immature granulocytes/100 WBC (Bld) 1 % High 0 [facility] Comment on above: Performed By: #### C BC, HEPXA, CMPX, MG, TSHX, TROPI #### [facility] [address] [place] [address] Shooting Gallery Operator: Dexter Fried MD #### LIPR #### [address] [address] Shooting Gallery Operator: Paco Tatum MD Lymphocytes (Bld) [#/Vol] 2.99 10*3/uL Normal 1.10-3.70 [facility] Comment on above: Performed By: #### C BC, HEPXA, CMPX, MG, TSHX, TROPI #### [facility] [address] [place] [address] Shooting Gallery Operator: Dexter Fried MD #### LIPR #### [address] [address] Shooting Gallery Operator: Paco Tatum MD Lymphocytes/100 WBC (Bld) 29 % Normal 24-43 [facility] Comment on above: Performed By: #### C BC, HEPXA, CMPX, MG, TSHX, TROPI #### [facility] [address] [place] [address] Shooting Gallery Operator: Dexter Fried MD #### LIPR #### [address] [address] Shooting Gallery Operator: Paco Tatum MD MCH (RBC) [Entitic mass] 26.6 pg Normal 25.2-33.5 [facility] Comment on above: Performed By: #### C BC, HEPXA, CMPX, MG, TSHX, TROPI #### [facility] [address] [place] [address] Shooting Gallery Operator: Dexter Fried MD #### LIPR #### [address] [address] Shooting Gallery Operator: Paco Tatum MD MCHC (RBC) [Mass/Vol] 30.9 g/dL Normal 28.4-34.8 [facility] Comment on above: Performed By: #### C BC, HEPXA, CMPX, MG, TSHX, TROPI #### [facility] [address] [place] [address] Shooting Gallery Operator: Dexter Fried MD #### LIPR #### [address] [address] Shooting Gallery Operator: Paco Tatum MD MCV (RBC) [Entitic vol] 86.2 fL Normal 82.6-102.9 [facility] Comment on above: Performed By: #### C BC, HEPXA, CMPX, MG, TSHX, TROPI #### [facility] [address] [place] [address] Shooting Gallery Operator: Dexter Fried MD #### LIPR #### [address] [address] Shooting Gallery Operator: Paco Tatum MD Monocytes (Bld) [#/Vol] 0.61 10*3/uL Normal 0.10-1.20 [facility] Comment on above: Performed By: #### C BC, HEPXA, CMPX, MG, TSHX, TROPI #### [facility] [address] [place] [address] Shooting Gallery Operator: Dexter Fried MD #### LIPR #### [address] [address] Shooting Gallery Operator: Paco Tatum MD Monocytes/100 WBC (Bld) 6 % Normal 3-12 [facility] Comment on above: Performed By: #### C BC, HEPXA, CMPX, MG, TSHX, TROPI #### [facility] [address] [place] [address] Shooting Gallery Operator: Dexter Fried MD #### LIPR #### [address] [address] Shooting Gallery Operator: Paco Tatum MD Neutrophil (Seg) 61 % Normal 36-65 [facility] Comment on above: Performed By: #### C BC, HEPXA, CMPX, MG, TSHX, TROPI #### [facility] [address] [place] [address] Shooting Gallery Operator: Dexter Fried MD #### LIPR #### [address] [address] Shooting Gallery Operator: Paco Tatum MD NRBC Automated 0.0 per 100 WBC Normal 0.0 [facility] Comment on above: Performed By: #### C BC, HEPXA, CMPX, MG, TSHX, TROPI #### [facility] [address] [place] [address] Shooting Gallery Operator: Dexter Fried MD #### LIPR #### [address] [address] Shooting Gallery Operator: Paco Tatum MD Platelet mean volume (Bld) [Entitic vol] 9.1 fL Normal 8.1-13.5 [facility] Comment on above: Performed By: #### C BC, HEPXA, CMPX, MG, TSHX, TROPI #### [facility] [place] [address] Shooting Gallery Operator: Dexter Fried MD #### LIPR #### [address] [address] Shooting Gallery Operator: Paco Tatum MD Platelets (Bld) [#/Vol] 351 10*3/uL Normal 138-453 [facility] Comment on above: Performed By: #### C BC, HEPXA, CMPX, MG, TSHX, TROPI #### [facility] [address] [place] [address] Shooting Gallery Operator: Dexter Fried MD #### LIPR #### [address] [address] Shooting Gallery Operator: Paco Tatum MD RBC (Bld) [#/Vol] 4.06 10*6/uL Normal 3.95-5.11 [facility] Comment on above: Performed By: #### C BC, HEPXA, CMPX, MG, TSHX, TROPI #### [facility] [address] [place] [address] Shooting Gallery Operator: Dexter Fried MD #### LIPR #### [address] [address] Shooting Gallery Operator: Paco Tatum MD RBC morphology finding Nom (Bld) ANISOCYTOSIS PRESENT Normal [facility] Comment on above: Performed By: #### C BC, HEPXA, CMPX, MG, TSHX, TROPI #### [facility] [address] [place] [address] Shooting Gallery Operator: Dexter Fried MD #### LIPR #### [address] [address] Shooting Gallery Operator: Paco Tatum MD WBC (Bld) [#/Vol] 10.2 10*3/uL Normal 3.5-11.3 [facility] Comment on above: Performed By: #### C BC, HEPXA, CMPX, MG, TSHX, TROPI #### [facility] [address] [place] [address] Shooting Gallery Operator: Dexter Fried MD #### LIPR #### [address] [address] Shooting Gallery Operator: Paco Tatum MD CT CHEST PULMONARY EMBOLISM [...] were called by Dr. Ernie Gamino to CASE CHECKER Bandar Vaughan on 11/30/2021 at 10:54 p.m. hours. RECOMMENDATIONS: 1.3 cm incidental right thyroid nodule with heterogeneous and enlarged thyroid. Recommend thyroid US. Reference: J Am Sukhjinder Radiol. 2015 Oct;12(2): 143-50 [facility] RIS CONSOLIDATED EXAMINATION: CTA OF THE CHEST 11/30/2021 [...] No acute bone or soft tissue abnormality. [facility] Ernie Langley, - 11/30/2021 EXAMINATION: CTA OF THE CHEST [...] J Am Sukhjinder Radiol. 2015 Oct;12(2): 143-50 [facility] [employer] Phone: [facility] [employer] Phone: Radiology Study observation (narrative) [facility] [employer] Phone: Comp Metabolic Pr/rfx MGon 0 11-30-2021 (cont.) Normal [facility] Comment on above: Result Comment: Aver age GFR for 20-29 years old: 116 mL/min/1.73sq m Chronic Kidney Disease: <60 mL/min/1.73sq m Kidney failure: <15 mL/min/1.73sq m eGFR calculated using average adult body mass. Additional eGFR calculator available at: http://www.LocalOn/multiple_crcl_2011.htm Performed By: #### C BC, HEPXA, CMPX, MG, TSHX, TROPI #### [facility] [address] [place] [address] Shooting Gallery Operator: Dexter Fried MD #### LIPR #### [address] [phone] Shooting Gallery Operator: Paco Tatum MD Albumin [Mass/Vol] 3.7 g/dL Normal 3.5-5.2 [facility] Comment on above: Performed By: #### C BC, HEPXA, CMPX, MG, TSHX, TROPI #### [facility] [address] [place] [address] Shooting Gallery Operator: Dexter Fried MD #### LIPR #### [address] [phone] Shooting Gallery Operator: Paco Tatum MD Alkaline Phos 102 U/L Normal 35-104 [facility] Comment on above: Performed By: #### C BC, HEPXA, CMPX, MG, TSHX, TROPI #### [facility] [address] [place] [address] Shooting Gallery Operator: Dexter Fried MD #### LIPR #### [address] [address] Shooting Gallery Operator: Paco Tatum MD ALT [Catalytic activity/Vol] 31 U/L Normal 5-33 [facility] Comment on above: Performed By: #### C BC, HEPXA, CMPX, MG, TSHX, TROPI #### [facility] [address] [place] [address] Shooting Gallery Operator: Dexter Fried MD #### LIPR #### [address] [address] Shooting Gallery Operator: Paco Tatum MD Anion gap [Moles/Vol] 10 mmol/L Normal 9-17 [facility] Comment on above: Performed By: #### C BC, HEPXA, CMPX, MG, TSHX, TROPI #### [facility] [address] [place] [address] Shooting Gallery Operator: Dexter Fried MD #### LIPR #### [address] [address] Shooting Gallery Operator: Paco Tatum MD AST [Catalytic activity/Vol] 15 U/L Normal <32 [facility] Comment on above: Performed By: #### C BC, HEPXA, CMPX, MG, TSHX, TROPI #### [facility] [address] [place] [address] Shooting Gallery Operator: Dexter Fried MD #### LIPR #### [address] [address] Shooting Gallery Operator: Paco Tatum MD Bilirubin [Mass/Vol] 0.21 mg/dL Low 0.3-1.2 [facility] Comment on above: Performed By: #### C BC, HEPXA, CMPX, MG, TSHX, TROPI #### [facility] [address] [place] [address] Shooting Gallery Operator: Dexter Fried MD #### LIPR #### [address] [address] Shooting Gallery Operator: Paco Tatum MD BUN/CRE Ratio 29 High 9-20 [facility] Comment on above: Performed By: #### C BC, HEPXA, CMPX, MG, TSHX, TROPI #### [facility] [address] [place] [address] Shooting Gallery Operator: Dexter Fried MD #### LIPR #### [address] [address] Shooting Gallery Operator: Paco Tatum MD Calcium [Mass/Vol] 9.0 mg/dL Normal 8.6-10.4 [facility] Comment on above: Performed By: #### C BC, HEPXA, CMPX, MG, TSHX, TROPI #### [facility] [place] [address] Shooting Gallery Operator: Dexter Fried MD #### LIPR #### [address] [address] Shooting Gallery Operator: Paco Tatum MD Chloride [Moles/Vol] 101 mmol/L Normal 98-107 [facility] Comment on above: Performed By: #### C BC, HEPXA, CMPX, MG, TSHX, TROPI #### [facility] [address] [place] [address] Shooting Gallery Operator: Dexter Fried MD #### LIPR #### [address] [address] Shooting Gallery Operator: Paco Tatum MD CO2 [Moles/Vol] 23 mmol/L Normal 20-31 [facility] Comment on above: Performed By: #### C BC, HEPXA, CMPX, MG, TSHX, TROPI #### [facility] [address] [place] [address] Shooting Gallery Operator: Dexter Fried MD #### LIPR #### [address] [address] Shooting Gallery Operator: Paco Tatum MD Creatinine [Mass/Vol] 0.55 mg/dL Normal 0.50-0.90 [facility] Comment on above: Performed By: #### C BC, HEPXA, CMPX, MG, TSHX, TROPI #### [facility] [address] [place] [address] Shooting Gallery Operator: Dexter Fried MD #### LIPR #### [address] [address] Shooting Gallery Operator: Paco Tatum MD GFR, Amer >60 Normal >60 [facility] Comment on above: Performed By: #### C BC, HEPXA, CMPX, MG, TSHX, TROPI #### [facility] [address] [place] [address] Shooting Gallery Operator: Dexter Fried MD #### LIPR #### [address] [address] Shooting Gallery Operator: Paco Tatum MD GFR,non Amer >60 Normal >60 [facility] Comment on above: Performed By: #### C BC, HEPXA, CMPX, MG, TSHX, TROPI #### [facility] [address] [place] [address] Shooting Gallery Operator: Dexter Fried MD #### LIPR #### [address] [address] Shooting Gallery Operator: Paco Tatum MD Glucose [Mass/Vol] 101 mg/dL High 70-99 [facility] Comment on above: Performed By: #### C BC, HEPXA, CMPX, MG, TSHX, TROPI #### [facility] [address] [place] [address] Shooting Gallery Operator: Dexter Fried MD #### LIPR #### [address] [address] Shooting Gallery Operator: Paco Tatum MD Potassium [Moles/Vol] 4.0 mmol/L Normal 3.7-5.3 [facility] Comment on above: Performed By: #### C BC, HEPXA, CMPX, MG, TSHX, TROPI #### [facility] [address] [place] [address] Shooting Gallery Operator: Dexter Fried MD #### LIPR #### [address] [address] Shooting Gallery Operator: Paco Tatum MD Protein [Mass/Vol] 6.9 g/dL Normal 6.4-8.3 [facility] Comment on above: Performed By: #### C BC, HEPXA, CMPX, MG, TSHX, TROPI #### [facility] [address] [place] [address] Shooting Gallery Operator: Dexter Fried MD #### LIPR #### [address] [address] Shooting Gallery Operator: Paco Tatum MD Sodium [Moles/Vol] 134 mmol/L Low 135-144 [facility] Comment on above: Performed By: #### C BC, HEPXA, CMPX, MG, TSHX, TROPI #### [facility] [address] [place], [place] [id number] Shooting Gallery Operator: Dexter Fried MD #### LIPR #### [facility] [address] [place], [place] [id number] Shooting Gallery Operator: Paco Tatum MD Urea nitrogen [Mass/Vol] 16 mg/dL Normal 6-20 [facility] Comment on above: Performed By: #### C BC, HEPXA, CMPX, MG, TSHX, TROPI #### [facility] [address] [place], [place] [phone] Shooting Gallery Operator: Dexter Fried MD #### LIPR #### [address] [place], [place] [id number] Shooting Gallery Operator: Paco Tatum MD Comprehensive Metabolic Pane l w/ Reflex to on 11-30-2021 Albumin [Mass/Vol] 3.7 g/dL 3.5 - 5.2 g/dL [facility] ALP (Bld) [Catalytic activity/Vol] 102 U/L 35 - 104 U/L [facility] ALT [Catalytic activity/Vol] 31 U/L 5 - 33 U/L [facility] Anion gap [Moles/Vol] 10 mmol/L 9 - 17 mmol/L [facility] AST [Catalytic activity/Vol] 15 U/L <32 [facility] Bilirubin [Mass/Vol] 0.21 mg/dL Low 0.3 - 1 .2 mg/dL [facility] Calcium [Mass/Vol] 9.0 mg/dL 8.6 - 10. 4 mg/dL [facility] Chloride [Moles/Vol] 101 mmol/L 98 - 10 7 mmol/L [facility] CO2 [Moles/Vol] 23 mmol/L 20 - 31 mmol/L [facility] Creatinine [Mass/Vol] 0.55 mg/dL 0.50 - 0.90 mg/dL [facility] Free PSA/Total PSA [Mass fraction] 6.9 g/dL 6.4 - 8.3 g/dL [facility] DDN GFR >60 >60 mL/min [facility] GFR Non- >60 >60 mL/min [facility] GFR/1.73 sq M.predicted MDRD (S/P/Bld) [Vol rate/Area] [facility] Comment on above: Average GFR for 20-2 9 years old: 116 mL/min/1.73sq m Chronic Kidney Disease: <60 mL/min/1.73sq m Kidney failure: <15 mL/min/1.73sq m eGFR calculated using average adult body mass. Additional eGFR calculator available at: http://www.LocalOn/Peek_crcl_2011.htm Glucose [Mass/Vol] 101 mg/dL High 70 - 99 mg/dL [facility] Potassium [Moles/Vol] 4.0 mmol/L 3.7 - 5.3 mmol/L [facility] Sodium [Moles/Vol] 134 mmol/L Low 135 - 144 mmol/L [facility] Urea nitrogen (BldV) [Mass/Vol] 16 mg/dL 6 - 20 mg/dL [facility] Urea nitrogen/Creatinine (Bld) [Mass ratio] 29 High [facility] D-Dimer Teston 11-30-2021 D-Dimer Test 1.73 mg/L FEU High 0.00-0.59 [facility] Comment on above: Result Comment: When [...] BC, HEPXA, CMPX, MG, TSHX, TROPI #### [facility] [address] [place], [place] [id number] Shooting Gallery Operator: Dexter Fried MD #### LIPR #### [facility] [address] [place], [place] [phone] Shooting Gallery Operator: Paco Tatum MD D-Dimer, Quantitativeon 11-09 D-Dimer, Quant 1.73 [facility] Comment on above: When combined with a [...] Interpretation and review of laboratory results Abnormal [facility] Lactate Dehydrogenaseon 11-09 LDH [Catalytic activity/Vol] 171 U/L Normal 135-214 [facility] Comment on above: Performed By: #### C BC, HEPXA, CMPX, MG, TSHX, TROPI #### [facility] [address] [place] [address] Shooting Gallery Operator: Dexter Fried MD #### LIPR #### [address] [place], [place] [phone] Shooting Gallery Operator: Paco Tatum MD LD 171 U/L 135 - 214 U/L [facility] Magnesiumon 11-30-2021 Magnesium [Mass/Vol] 1.9 mg/dL Normal 1.6-2.6 [facility] Comment on above: Performed By: #### C BC, HEPXA, CMPX, MG, TSHX, TROPI #### [facility] [address] [place], [place] [phone] Shooting Gallery Operator: Dexter Fried MD #### LIPR #### [address] [address] Shooting Gallery Operator: Paco Tatum MD Magnesium [Mass/Vol] 1.9 mg/dL 1.6 - 2 .6 mg/dL [facility] Microscopic Urinalysison - [facility] Bacteria, UA RARE Abnormal None [facility] Epithelial Cells UA 0 TO 2 [facility] Interpretation and review of laboratory results Abnormal [facility] RBC, UA 2 TO 5 [facility] WBC, UA 2 TO 5 [facility] No Panel Informationon 11-30 Interpretation and review of laboratory results Abnormal [facility] Prot. Electrophoresis, Uron 11-30-2021 Type of Specimen .CLEAN CATCH URINE Normal [facility] Comment on above: Performed By: #### C BC, HEPXA, CMPX, MG, TSHX, TROPI #### [facility] [address] [place], [place] [phone] Shooting Gallery Operator: Dexter Fried MD #### LIPR #### [facility] [address] [place], [place] [phone] Shooting Gallery Operator: Paco Tatum MD Protime-INRon 11-30-2021 INR Coag (Bld) [Relative time] 1.1 {INR} [facility] Comment on above: Non-therapeutic Range: INR = 0.9-1.2 Therapeutic Range: Moderate Anticoagulant Intensity: INR = 2.0-3.0 High Anticoagulant Intensity: INR = 2.5-3.5 PT Coag (PPP) [Time] 14 s [facility] Troponinon 11-30-2021 Troponin, High Sens <6 Normal 0-14 [facility] Comment on above: Result Comment: High Sensitivity Troponin values cannot be compared with other Troponin methodologies. Patients with high levels of Biotin oral intake (i.e >5mg/day) may have falsely decreased Troponin levels. Samples collected within 8 hours of biotin intake may require additional information for diagnosis. Performed By: #### C BC, HEPXA, CMPX, MG, TSHX, TROPI #### [facility] [address] [place], [place] [phone] Shooting Gallery Operator: Dexter Fried MD #### LIPR #### [facility] [address] [place], [place] [phone] Shooting Gallery Operator: Paco Tatum MD Troponin, High Sensitivity <6 0 - 14 ng/L [facility] Comment on above: High Sensitivity Troponin values cannot be compared with other Troponin methodologies. Patients with high levels of Biotin oral intake (i.e >5mg/day) may have falsely decreased Troponin levels. Samples collected within 8 hours of biotin intake may require additional information for diagnosis. [facility] Troponin, High Sensitivity <6 0 - 14 ng/L [facility] Comment on above: High Sensitivity Troponin values cannot be compared with other Troponin methodologies. Patients with high levels of Biotin oral intake (i.e >5mg/day) may have falsely decreased Troponin levels. Samples collected within 8 hours of biotin intake may require additional information for diagnosis. UA w/Reflex Cultureon 2021 Bilirubin, SemiQt,Ur Negative Normal NEG [facility] Comment on above: Performed By: #### C BC, HEPXA, CMPX, MG, TSHX, TROPI #### [facility] [address] [place] [address] Shooting Gallery Operator: Dexter Fried MD #### LIPR #### [address] [address] Shooting Gallery Operator: Paco Tatum MD Blood, Urine 3+ Abnormal NEG [facility] Comment on above: Performed By: #### C BC, HEPXA, CMPX, MG, TSHX, TROPI #### [facility] [address] [place] [address] Shooting Gallery Operator: Dexter Fried MD #### LIPR #### [address] [address] Shooting Gallery Operator: Paco Tatum MD Clarity (U) SLIGHTLY CLOUDY Abnormal CLEAR [facility] Comment on above: Performed By: #### C BC, HEPXA, CMPX, MG, TSHX, TROPI #### [facility] [address] [place] [address] Shooting Gallery Operator: Dexter Fried MD #### LIPR #### [address] [address] Shooting Gallery Operator: Paco Tatum MD Color (U) Yellow Normal YEL [facility] Comment on above: Performed By: #### C BC, HEPXA, CMPX, MG, TSHX, TROPI #### [facility] [address] [place] [address] Shooting Gallery Operator: Dexter Fried MD #### LIPR #### [address] [address] Shooting Gallery Operator: Paco Tatum MD Glucose Ql (U) Negative Normal NEG [facility] Comment on above: Performed By: #### C BC, HEPXA, CMPX, MG, TSHX, TROPI #### [facility] [address] [place] [address] Shooting Gallery Operator: Dexter Fried MD #### LIPR #### [address] [address] Shooting Gallery Operator: Paco Tatum MD Ketones Ql (U) Negative Normal NEG [facility] Comment on above: Performed By: #### C BC, HEPXA, CMPX, MG, TSHX, TROPI #### [facility] [address] [place] [address] Shooting Gallery Operator: Dexter Fried MD #### LIPR #### [address] [address] Shooting Gallery Operator: Paco Tatum MD Leukocyte esterase Test strip Ql (U) SMALL Abnormal NEG [facility] Comment on above: Performed By: #### C BC, HEPXA, CMPX, MG, TSHX, TROPI #### [facility] [address] [place] [address] Shooting Gallery Operator: Dexter Fried MD #### LIPR #### [address] [address] Shooting Gallery Operator: Paco Tatum MD Nitrite,Ur Negative Normal NEG [facility] Comment on above: Performed By: #### C BC, HEPXA, CMPX, MG, TSHX, TROPI #### [facility] [address] [place] [address] Shooting Gallery Operator: Dexter Fried MD #### LIPR #### [address] [address] Shooting Gallery Operator: Paco Tatum MD PH,Ur 6.0 Normal 5.0-8.0 [facility] Comment on above: Performed By: #### C BC, HEPXA, CMPX, MG, TSHX, TROPI #### [facility] [address] [place] [address] Shooting Gallery Operator: Dexter Fried MD #### LIPR #### [address] [address] Shooting Gallery Operator: Paco Tatum MD Protein Ql (U) Negative Normal NEG [facility] Comment on above: Performed By: #### C BC, HEPXA, CMPX, MG, TSHX, TROPI #### [facility] [address] [place] [address] Shooting Gallery Operator: Dexter Fried MD #### LIPR #### [address] [address] Shooting Gallery Operator: Paco Tatum MD Spec. Callahan,Ur 1.035 High 1.005-1.030 [facility] Comment on above: Performed By: #### C BC, HEPXA, CMPX, MG, TSHX, TROPI #### [facility] [address] [place] [address] Shooting Gallery Operator: Dexter Fried MD #### LIPR #### [address] [address] Shooting Gallery Operator: Paco Tatum MD Urobilinogen,Ur Normal Normal NORM [facility] Comment on above: Performed By: #### C BC, HEPXA, CMPX, MG, TSHX, TROPI #### [facility] [address] [place] [address] Shooting Gallery Operator: Dexter Fried MD #### LIPR #### [address] [place] [address] Shooting Gallery Operator: Paco Tatum MD Uric Acidon 11-30-2021 Urate [Mass/Vol] 8.0 mg/dL High 2.4-5.7 [facility] Comment on above: Performed By: #### C BC, HEPXA, CMPX, MG, TSHX, TROPI #### [facility] [address] [place] [address] Shooting Gallery Operator: Dexter Fried MD #### LIPR #### [facility] [address] [place] [address] Shooting Gallery Operator: Paco Tatum MD Urate [Mass/Vol] 8.0 mg/dL High 2.4 - 5.7 mg/dL [facility] Urinalysis with Reflex to Cu ltureon 11-30-2021 Bilirubin Urine Negative NEGATIVE [facility] Color, UA Yellow Yellow [facility] Glucose, Ur Negative NEGATIVE [facility] Interpretation and review of laboratory results Abnormal [facility] Ketones Ql (U) Negative NEGATIVE [facility] Leukocyte esterase Test strip Ql (U) SMALL Abnormal NEGATIVE [facility] Nitrite, Urine Negative NEGATIVE [facility] pH, UA 6.0 [facility] Protein, UA Negative NEGATIVE [facility] Specific Callahan, UA 1.035 High [facility] Turbidity UA SLIGHTLY CLOUDY Abnormal Clear [facility] ealt Urine Hgb 3+ Abnormal NEGATIVE [facility] Urobilinogen, Urine Normal Normal [facility] Urinalysis,Microon 2 ----- Normal [facility] Comment on above: Performed By: #### C BC, HEPXA, CMPX, MG, TSHX, TROPI #### [facility] [address] [place] [address] Shooting Gallery Operator: Dexter Fried MD #### LIPR #### [address] [address] Shooting Gallery Operator: Paco Tatum MD Bacteria RARE Abnormal NONE [facility] Comment on above: Performed By: #### C BC, HEPXA, CMPX, MG, TSHX, TROPI #### [facility] [address] [place] [address] Shooting Gallery Operator: Dexter Fried MD #### LIPR #### [address] [address] Shooting Gallery Operator: Paco Tatum MD Epithelial cells LM Ql (Urine sed) 0 TO 2 Normal 0-5 [facility] Comment on above: Performed By: #### C BC, HEPXA, CMPX, MG, TSHX, TROPI #### [facility] [address] [place] [address] Shooting Gallery Operator: Dexter Fried MD #### LIPR #### [address] [address] Shooting Gallery Operator: Paco Tatum MD Urine RBC's 2 TO 5 Normal 0-2 [facility] Comment on above: Performed By: #### C BC, HEPXA, CMPX, MG, TSHX, TROPI #### [facility] [address] [place] [address] Shooting Gallery Operator: Dexter Fried MD #### LIPR #### [address] [address] Shooting Gallery Operator: Paco Tatum MD Urine WBC's 2 TO 5 Normal 0-5 [facility] Comment on above: Performed By: #### C BC, HEPXA, CMPX, MG, TSHX, TROPI #### [facility] [address] [place] [address] Shooting Gallery Operator: Dexter Fried MD #### LIPR #### [address] [address] Shooting Gallery Operator: Paco Tatum MD XR CHEST PORTABLEon 12-01-19 [...] Ernie Gamino DO 11/30/21 Final result Normal [facility] 1. Cardiomegaly, without evidence of CHF [...] IMPRESSION: 1. Cardiomegaly, without evidence of CHF [facility] Phone: Radiology Study observation (narrative) [facility] Phone: XR CHEST PORTABLEOrdered By: Ernie Gamino on 11-30-2021 [facility] Phone: CBC with Auto Differentialon 11-26-2021 Absolute Eos # 0.23 [facility] Absolute Immature Granulocyte 0.13 [facility] Absolute Lymph # 1.98 [facility] Absolute [place] # 0.[address] [facility] lth Basophils (Bld) [#/Vol] 0.06 10*3/uL [facility] Basophils/100 WBC (Bld) 1 % 0 - 2 % [facility] Eosinophils/100 WBC (Bld) 3 % 1 - 4 % [facility] Hematocrit (Bld) [Volume fraction] 28.9 % Low 36.3 - 47.1 % [facility] Hemoglobin.gastroint estinal spec 1 Ql (Stl) 8.9 g/dL Low 11.9 - 15.1 g/dL [facility] Immature granulocytes/100 WBC (Bld) 2 % High 0 [facility] Interpretation and review of laboratory results Abnormal [facility] Lymphocytes/100 WBC (Bld) 23 % Low 24 - 43 % [facility] MCH (RBC) [Entitic mass] 26.5 pg 25.2 - 33.5 pg [facility] MCHC (RBC) [Mass/Vol] 30.8 g/dL 28.4 - 34.8 g/dL [facility] MCV (RBC) [Entitic vol] 86.0 fL 82.6 - 102.9 fL [facility] Monocytes/100 WBC (Bld) 6 % 3 - 12 % [facility] NRBC Automated 0.0 0.0 per 100 WBC [facility] Platelet distribution width (Bld) [Ratio] 14.8 % High 11.8 - 14.4 % [facility] Platelet mean volume (Bld) [Entitic vol] 10.3 fL 8.1 - 13.5 fL [facility] Platelets (Bld) [#/Vol] 236 10*3/uL [facility] RBC (Bld) [#/Vol] 3.36 10*6/uL Low 3.95 - 5.1 1 m/uL [facility] RBC (Bld) [#/Vol] ANISOCYTOSIS PRESENT [facility] Segmented neutrophils/100 WBC (Bld) 65 % 36 - 65 % [facility] [#/Vol] 8.7 10*3/uL [facility] CBC with Diffon 11-26-2021 Abs. Basophil 0.06 k/uL Normal 0.00-0.20 [facility] Comment on above: Performed By: #### C DP, CP, URI #### [address] [address] Shooting Gallery Operator: Paco Tatum MD Abs.Imm.Granulocyte 0.13 k/uL Normal 0.00-0.30 [facility] Comment on above: Performed By: #### C DP, CP, URI #### [address] [address] Shooting Gallery Operator: Paco Tatum MD Abs.Neutrophil (Seg) 5.77 k/uL Normal 1.50-8.10 [facility] Comment on above: Performed By: #### C DP, CP, URI #### [address] [address] Shooting Gallery Operator: Paco Tatum MD Basophils/100 WBC (Bld) 1 % Normal 0-2 [facility] Comment on above: Performed By: #### C DP, CP, URI #### [address] [address] Shooting Gallery Operator: Paco Tatum MD Eosinophils (Bld) [#/Vol] 0.23 10*3/uL Normal 0.00-0.44 [facility] Comment on above: Performed By: #### C DP, CP, URI #### [address] [address] Shooting Gallery Operator: Paco Tatum MD Eosinophils/100 WBC (Bld) 3 % Normal 1-4 [facility] Comment on above: Performed By: #### C DP, CP, URI #### [address] [address] Shooting Gallery Operator: Paco Tatum MD Erythrocyte distribution width (RBC) [Ratio] 14.8 % High 11.8-14.4 [facility] Comment on above: Performed By: #### C DP, CP, URI #### [address] [address] Shooting Gallery Operator: Paco Tatum MD Hematocrit (Bld) [Volume fraction] 28.9 % Low 36.3-47.1 [facility] Comment on above: Performed By: #### C DP, CP, URI #### [facility] [address] [place] [address] Shooting Gallery Operator: Paco Tatum MD Hemoglobin (Bld) [Mass/Vol] 8.9 g/dL Low 11.9-15.1 [facility] Comment on above: Performed By: #### C DP, CP, URI #### [address] [address] Shooting Gallery Operator: Paco Tatum MD Immature granulocytes/100 WBC (Bld) 2 % High 0 [facility] Comment on above: Performed By: #### C DP, CP, URI #### [address] [address] Shooting Gallery Operator: Paco Tatum MD Lymphocytes (Bld) [#/Vol] 1.98 10*3/uL Normal 1.10-3.70 [facility] Comment on above: Performed By: #### C DP, CP, URI #### [address] [address] Shooting Gallery Operator: Paco Tatum MD Lymphocytes/100 WBC (Bld) 23 % Low 24-43 [facility] Comment on above: Performed By: #### C DP, CP, URI #### [facility] [address] [place] [address] Shooting Gallery Operator: Paco Tatum MD MCH (RBC) [Entitic mass] 26.5 pg Normal 25.2-33.5 [facility] Comment on above: Performed By: #### C DP, CP, URI #### [facility] [address] [place] [address] Shooting Gallery Operator: Paco Tatum MD MCHC (RBC) [Mass/Vol] 30.8 g/dL Normal 28.4-34.8 [facility] Comment on above: Performed By: #### C DP CP, URI #### [address] [address] Shooting Gallery Operator: Paco Tatum MD MCV (RBC) [Entitic vol] 86.0 fL Normal 82.6-102.9 [facility] Comment on above: Performed By: #### C DP, CP, URI #### [address] [address] Shooting Gallery Operator: Paco Tatum MD Monocytes (Bld) [#/Vol] 0.51 10*3/uL Normal 0.10-1.20 [facility] Comment on above: Performed By: #### C DP, CP, URI #### [address] [address] Shooting Gallery Operator: Paco Tatum MD Monocytes/100 WBC (Bld) 6 % Normal 3-12 [facility] Comment on above: Performed By: #### C DP, CP, URI #### [address] [address] Shooting Gallery Operator: Paco Tatum MD Neutrophil (Seg) 65 % Normal 36-65 [facility] Comment on above: Performed By: #### C DP, CP, URI #### [address] [address] Shooting Gallery Operator: Paco Tatum MD NRBC Automated 0.0 per 100 WBC Normal 0.0 [facility] Comment on above: Performed By: #### C DP, CP, URI #### [address] [address] Shooting Gallery Operator: Paco Tatum MD Platelet mean volume (Bld) [Entitic vol] 10.3 fL Normal 8.1-13.5 [facility] Comment on above: Performed By: #### C JL CP, URI #### [address] [address] Shooting Gallery Operator: Paco Tatum MD Platelets (Bld) [#/Vol] 236 10*3/uL Normal 138-453 [facility] Comment on above: Performed By: #### C DP CP, URI #### [address] [address] Shooting Gallery Operator: Paco Tatum MD RBC (Bld) [#/Vol] 3.36 10*6/uL Low 3.95-5.11 [facility] Comment on above: Performed By: #### C DP CP, URI #### [address] [address] Shooting Gallery Operator: Paco Tatum MD RBC morphology finding Nom (Bld) ANISOCYTOSIS PRESENT Normal [facility] Comment on above: Performed By: #### C DENG PARIKH, URI #### [address] [address] Shooting Gallery Operator: Paco Tatum MD WBC (Bld) [#/Vol] 8.7 10*3/uL Normal 3.5-11.3 [facility] Comment on above: Performed By: #### C DP CP, URI #### [address] [address] Shooting Gallery Operator: Paco Tatum MD COVID-19, Rapidon 11-26-2021 SARS-CoV-2 (COVID-19) RNA MYNOR+probe Ql (Unsp spec) Not detected Not Detected [facility] Comment on above: Rapid NAAT: The [...] management decisions. Fact sheet for Healthcare Providers: https://www.fda.gov/media/491646/download Fact sheet for Patients: https://www.fda.gov/media/943251/download Methodology: Isothermal Nucleic Acid Amplification Specimen Description .NASOPHARYNGEAL SWAB [facility] CT CHEST PULMONARY EMBOLISM W CONTRASTon [...] Alok San MD 11/26/21 Final result Normal [facility] Motion degraded exam . No evidence for central pulmonary embolism. Probable subsegmental atelectasis in the lung bases. No consolidation. [facility] EXAMINATION: CTA OF THE CHEST 11/26/2021 [...] acute bone or soft tissue abnormality. [facility] Alok San MD - 11/26/2021 EXAMINATION: [...] atelectasis in the lung bases. No consolidation. [facility] Phone: Radiology Study observation (narrative) [facility] Phone: CT CHEST PULMONARY EMBOLISM W CONTRASTOrdered By: Alok San on 11-26-2021 [facility] Phone: Comp Metabolic Profon 2021 (cont.) Normal [facility] Comment on above: Result Comment: Aver age GFR for 20-29 years old: 116 mL/min/1.73sq m Chronic Kidney Disease: <60 mL/min/1.73sq m Kidney failure: <15 mL/min/1.73sq m eGFR calculated using average adult body mass. Additional eGFR calculator available at: http://www.LocalOn/multiple_crcl_2012.htm Performed By: #### C DENG PARIKH, URI #### [facility] [address] [place] [address] Shooting Gallery Operator: Paco Tatum MD Albumin [Mass/Vol] 3.3 g/dL Low 3.5-5.2 [facility] Comment on above: Performed By: #### C DENG PARIKH, URI #### [facility] [address] [place] [address] Shooting Gallery Operator: Paco Tatum MD Albumin/Glob Ratio 1.1 Normal 1.0-2.5 [facility] Comment on above: Performed By: #### C DENG PARIKH, URI #### [facility] [address] [place] [address] Shooting Gallery Operator: Paco Tatum MD Alkaline Phos 105 U/L High 35-104 [facility] Comment on above: Performed By: #### C JL CP, URI #### [facility] [place] [place] [address] Shooting Gallery Operator: Paco Tatum MD ALT [Catalytic activity/Vol] 44 U/L High 5-33 [facility] Comment on above: Performed By: #### C DP, CP, URI #### [facility] [address] [place] [address] Shooting Gallery Operator: Paco Tatum MD Anion gap [Moles/Vol] 14 mmol/L Normal 9-17 [facility] Comment on above: Performed By: #### C DP, CP, URI #### [facility] [address] [place] [address] Shooting Gallery Operator: Paco Tatum MD AST [Catalytic activity/Vol] 26 U/L Normal <32 [facility] Comment on above: Performed By: #### C DP, CP, URI #### [facility] [address] [place] [address] Shooting Gallery Operator: Paco Tatum MD Bilirubin [Mass/Vol] 0.19 mg/dL Low 0.3-1.2 [facility] Comment on above: Performed By: #### C DP, CP, URI #### [facility] [address] [place] [address] Shooting Gallery Operator: Paco Tatum MD Calcium [Mass/Vol] 8.3 mg/dL Low 8.6-10.4 [facility] Comment on above: Performed By: #### C DP, CP, URI #### [facility] [address] [place] [address] Shooting Gallery Operator: Paco Tatum MD Chloride [Moles/Vol] 102 mmol/L Normal 98-107 [facility] Comment on above: Performed By: #### C DP, CP, URI #### [facility] [address] [place] [address] Shooting Gallery Operator: Paco Tatum MD CO2 [Moles/Vol] 21 mmol/L Normal 20-31 [facility] Comment on above: Performed By: #### C DP, CP, URI #### [address] [address] Shooting Gallery Operator: Paco Tatum MD Creatinine [Mass/Vol] 0.32 mg/dL Low 0.50-0.90 [facility] Comment on above: Performed By: #### C DP, CP, URI #### [address] [address] Shooting Gallery Operator: Paco Tatum MD GFR, Amer >60 Normal >60 [facility] Comment on above: Performed By: #### C DP, CP, URI #### [address] [address] Shooting Gallery Operator: Paco Tatum MD GFR,non Amer >60 Normal >60 [facility] Comment on above: Performed By: #### C DP, CP, URI #### [address] [address] Shooting Gallery Operator: Paco Tatum MD Glucose [Mass/Vol] 98 mg/dL Normal 70-99 [facility] Comment on above: Performed By: #### C DP, CP, URI #### [address] [address] Shooting Gallery Operator: Paco Tatum MD Potassium [Moles/Vol] 3.7 mmol/L Normal 3.7-5.3 [facility] Comment on above: Performed By: #### C DP, CP, URI #### [facility] [address] [place] [address] Shooting Gallery Operator: Paco Tatum MD Protein [Mass/Vol] 6.2 g/dL Low 6.4-8.3 [facility] Comment on above: Performed By: #### C DP, CP, URI #### [facility] [address] [place] [address] Shooting Gallery Operator: Paco Tatum MD Sodium [Moles/Vol] 137 mmol/L Normal 135-144 [facility] Comment on above: Performed By: #### C DP, CP, URI #### [facility] [address] [place], [place] [phone] Shooting Gallery Operator: Paco Tatum MD Urea nitrogen [Mass/Vol] 7 mg/dL Normal 6-20 [facility] Comment on above: Performed By: #### C DENG PARIKH, URI #### [facility] [address] [place], [place] [phone] Shooting Gallery Operator: Paco Tatum MD Comprehensive Metabolic Pane [facility] 11-26-2021 Albumin [Mass/Vol] 3.3 g/dL Low 3.5 - 5.2 g/dL [facility] Albumin/Globulin [Mass ratio] 1.1 {ratio} [facility] ALP (Bld) [Catalytic activity/Vol] 105 U/L High 35 - 104 U/L [facility] ALT [Catalytic activity/Vol] 44 U/L High 5 - 33 U/L [facility] Anion gap [Moles/Vol] 14 mmol/L 9 - 17 mmol/L [facility] AST [Catalytic activity/Vol] 26 U/L <32 [facility] Bilirubin [Mass/Vol] 0.19 mg/dL Low 0.3 - 1 .2 mg/dL [facility] Calcium [Mass/Vol] 8.3 mg/dL Low 8.6 - 10. 4 mg/dL [facility] Chloride [Moles/Vol] 102 mmol/L 98 - 10 7 mmol/L [facility] CO2 [Moles/Vol] 21 mmol/L 20 - 31 mmol/L [facility] Creatinine [Mass/Vol] 0.32 mg/dL Low 0.50 - 0.90 mg/dL [facility] Free PSA/Total PSA [Mass fraction] 6.2 g/dL Low 6.4 - 8.3 g/dL [facility] GFR >60 >60 mL/min [facility] GFR Non- >60 >60 mL/min [facility] GFR/1.73 sq M.predicted MDRD (S/P/Bld) [Vol rate/Area] [facility] Comment on above: Average GFR for 20-2 9 years old: 116 mL/min/1.73sq m Chronic Kidney Disease: <60 mL/min/1.73sq m Kidney failure: <15 mL/min/1.73sq m eGFR calculated using average adult body mass. Additional eGFR calculator available at: http://www.LocalOn/multiple_crcl_2012.htm Glucose [Mass/Vol] 98 mg/dL 70 - 99 mg/dL [facility] Potassium [Moles/Vol] 3.7 mmol/L 3.7 - 5.3 mmol/L [facility] Sodium [Moles/Vol] 137 mmol/L 135 - 144 mmol/L [facility] Urea nitrogen (BldV) [Mass/Vol] 7 mg/dL 6 - 20 mg/dL [facility] No Panel Informationon 11-26 Interpretation and review of laboratory results Abnormal [facility] Protein / Creatinine Ratio, Urineon 11-26-2021 Creatinine, Ur 31.3 mg/dL 28.0 - 217.0 mg/dL [facility] Interpretation and review of laboratory results Abnormal [facility] Protein (U) [Mass/Vol] 11 mg/dL [facility] Comment on above: No normal range esta blished. Urine Total Protein Creatinine Ratio 0.35 High [facility] Protein,Tot,Barnum Uron 2021 Creatinine [Mass/Vol] 31.3 mg/dL Normal 28.0-217.0 [facility] Comment on above: Performed By: #### C BC, HEPXA, CMPX, MG, TSHX, TROPI #### [facility] [address] [place] [address] Shooting Gallery Operator: Dexter Fried MD #### LIPR #### [facility] [address] [place], [place] [phone] Shooting Gallery Operator: Paco Tatum MD Tot Prot. Conc. 11 mg/dL Normal [facility] Comment on above: Result Comment: No n ormal range established. Performed By: #### C BC, HEPXA, CMPX, MG, TSHX, TROPI #### [facility] [address] [place] [address] Shooting Gallery Operator: Dexter Fried MD #### LIPR #### [address] [address] Shooting Gallery Operator: Paco Tatum MD TP/Cre Ratio 0.35 High 0.00-0.20 [facility] Comment on above: Performed By: #### C BC, HEPXA, CMPX, MG, TSHX, TROPI #### [facility] [address] [place] [address] Shooting Gallery Operator: Dexter Fried MD #### LIPR #### [address] [place] [address] Shooting Gallery Operator: Paco Tatum MD [id number] 11-26-2021 SARS-CoV-2 (COVID-19) RNA MYNOR+probe Ql (Unsp spec) Not detected Normal [facility] Comment on above: Result Comment: Rapid [...] management decisions. Fact sheet for Healthcare Providers: https://www.fda.gov/media/965490/download Fact sheet for Patients: https://www.fda.gov/media/693482/download Methodology: Isothermal Nucleic Acid Amplification Performed By: #### C OVRB #### [facility] [address] [place], [place] [phone] Shooting Gallery Operator: Dexter Fried MD Uric Acidon 11-26-2021 Urate [Mass/Vol] 6.4 mg/dL High 2.4-5.7 [facility] Comment on above: Performed By: #### C DP, CP, URI #### [facility] [address] [place], [place] [id number] Shooting Gallery Operator: Paco Tatum MD Urate [Mass/Vol] 6.4 mg/dL High 2.4 - 5.7 mg/dL [facility] Basic Metabolic Panelon 11-08 Anion gap [Moles/Vol] 11 mmol/L 9 - 17 mmol/L [facility] Calcium [Mass/Vol] 8.5 mg/dL Low 8.6 - 10. 4 mg/dL [facility] Chloride [Moles/Vol] 104 mmol/L 98 - 10 7 mmol/L [facility] CO2 [Moles/Vol] 22 mmol/L 20 - 31 mmol/L [facility] Creatinine [Mass/Vol] 0.43 mg/dL Low 0.50 - 0.90 mg/dL [facility] GFR >60 >60 mL/min [facility] GFR Non- >60 >60 mL/min [facility] GFR/1.73 sq M.predicted MDRD (S/P/Bld) [Vol rate/Area] [facility] Comment on above: Average GFR for 20-2 9 years old: 116 mL/min/1.73sq m Chronic Kidney Disease: <60 mL/min/1.73sq m Kidney failure: <15 mL/min/1.73sq m eGFR calculated using average adult body mass. Additional eGFR calculator available at: http://www.[employer].LangoLab/multiple_crcl_2012.htm Glucose [Mass/Vol] 101 mg/dL High 70 - 99 mg/dL Project 2020 Potassium [Moles/Vol] 4.2 mmol/L 3.7 - 5.3 mmol/L [facility] Sodium [Moles/Vol] 137 mmol/L 135 - 144 mmol/L [facility] Urea nitrogen (BldV) [Mass/Vol] 9 mg/dL 6 - 20 mg/dL [facility] Urea nitrogen/Creatinine (Bld) [Mass ratio] 21 High [facility] Basic Metabolic Profon 11-25 Anion gap [Moles/Vol] 11 mmol/L Normal 9-17 [facility] Comment on above: Performed By: #### C BC, HEPXA, CMPX, MG, TSHX, TROPI #### [facility] [address] [place] [address] Shooting Gallery Operator: Dexter Fried MD #### LIPR #### [address] [address] Shooting Gallery Operator: Paco Tatum MD BUN/CRE Ratio 21 High 9-20 [facility] Comment on above: Performed By: #### C BC, HEPXA, CMPX, MG, TSHX, TROPI #### [facility] [address] [place] [address] Shooting Gallery Operator: Dexter Fried MD #### LIPR #### [address] [address] Shooting Gallery Operator: Paco Tatum MD Calcium [Mass/Vol] 8.5 mg/dL Low 8.6-10.4 [facility] Comment on above: Performed By: #### C BC, HEPXA, CMPX, MG, TSHX, TROPI #### [facility] [address] [place] [address] Shooting Gallery Operator: Dexter Fried MD #### LIPR #### [address] [id number] Shooting Gallery Operator: Paco Tatum MD Chloride [Moles/Vol] 104 mmol/L Normal 98-107 [facility] Comment on above: Performed By: #### C BC, HEPXA, CMPX, MG, TSHX, TROPI #### [facility] [address] [place] [address] Shooting Gallery Operator: Dexter Fried MD #### LIPR #### [address] [address] Shooting Gallery Operator: Paco Tatum MD CO2 [Moles/Vol] 22 mmol/L Normal 20-31 [facility] Comment on above: Performed By: #### C BC, HEPXA, CMPX, MG, TSHX, TROPI #### [facility] [address] [place] [address] Shooting Gallery Operator: Dexter Fried MD #### LIPR #### [address] [address] Shooting Gallery Operator: Paco Tatum MD Creatinine [Mass/Vol] 0.43 mg/dL Low 0.50-0.90 [facility] Comment on above: Performed By: #### C BC, HEPXA, CMPX, MG, TSHX, TROPI #### [facility] [address] [place] [address] Shooting Gallery Operator: Dexter Fried MD #### LIPR #### [address] [address] Shooting Gallery Operator: Paco Tatum MD GFR, Amer >60 Normal >60 [facility] Comment on above: Performed By: #### C BC, HEPXA, CMPX, MG, TSHX, TROPI #### [facility] [address] [place] [address] Shooting Gallery Operator: Dexter Fried MD #### LIPR #### [address] [place] [address] Shooting Gallery Operator: Paco Tatum MD GFR,non Amer >60 Normal >60 [facility] Comment on above: Performed By: #### C BC, HEPXA, CMPX, MG, TSHX, TROPI #### [facility] [address] [place] [address] Shooting Gallery Operator: Dexter Fried MD #### LIPR #### [address] [address] Shooting Gallery Operator: Paco Tatum MD Glucose [Mass/Vol] 101 mg/dL High 70-99 [facility] Comment on above: Performed By: #### C BC, HEPXA, CMPX, MG, TSHX, TROPI #### [facility] [address] [place] [address] Shooting Gallery Operator: Dexter Fried MD #### LIPR #### [address] [address] Shooting Gallery Operator: Paco Tatum MD Potassium [Moles/Vol] 4.2 mmol/L Normal 3.7-5.3 [facility] Comment on above: Performed By: #### C BC, HEPXA, CMPX, MG, TSHX, TROPI #### [facility] [address] [place] [address] Shooting Gallery Operator: Dexter Fried MD #### LIPR #### [address] [address] Shooting Gallery Operator: Paco Tatum MD Sodium [Moles/Vol] 137 mmol/L Normal 135-144 [facility] Comment on above: Performed By: #### C BC, HEPXA, CMPX, MG, TSHX, TROPI #### [facility] [address] [place] [address] Shooting Gallery Operator: Dexter Fried MD #### LIPR #### [address] [place] [address] Shooting Gallery Operator: Paco Tatum MD Urea nitrogen [Mass/Vol] 9 mg/dL Normal 6-20 [facility] Comment on above: Performed By: #### C BC, HEPXA, CMPX, MG, TSHX, TROPI #### [facility] [address] [place] [address] Shooting Gallery Operator: Dexter Fried MD #### LIPR #### [address] [address] Shooting Gallery Operator: Paco Tatum MD (cont.) Normal [facility] Comment on above: Result Comment: Aver age GFR for 20-29 years old: 116 mL/min/1.73sq m Chronic Kidney Disease: <60 mL/min/1.73sq m Kidney failure: <15 mL/min/1.73sq m eGFR calculated using average adult body mass. Additional eGFR calculator available at: http://www.[employer].LangoLab/multiple_crcl_2012.htm Performed By: #### C BC, HEPXA, CMPX, MG, TSHX, TROPI #### [facility] [address] [place] [address] Shooting Gallery Operator: Dexter Fried MD #### LIPR #### [address] [place] [address] Shooting Gallery Operator: Paco Tatum MD Brain Natri. Peptideon 11-25 Natriuretic peptide B (Bld) [Mass/Vol] 163 pg/mL Normal <300 [facility] Comment on above: Result Comment: An age-independent cutoff point of 300 pg/ml has a 98% negative predictive value excluding acute heart failure. Performed By: #### C BC, HEPXA, CMPX, MG, TSHX, TROPI #### [facility] [address] [place], [place] [phone] Shooting Gallery Operator: Dexter Fried MD #### LIPR #### [facility] [address] [place], [place] [phone] Shooting Gallery Operator: Paco Tatum MD Brain Natriuretic Peptideon 11-25-2021 Natriuretic peptide B (Bld) [Mass/Vol] 163 pg/mL <300 [facility] Comment on above: An age-independent cutoff point of 300 pg/ml has a 98% negative predictive value excluding acute heart failure. CBC with Auto Differentialon 11-25-2021 Absolute Eos # 0.22 [facility] th Absolute Immature Granulocyte 0.10 [facility] [employer] [facility] Absolute Lymph # 2.14 [facility] alth Absolute Wilkes # 0.[address] [facility] lth Basophils (Bld) [#/Vol] 0.05 10*3/uL [facility] Basophils/100 WBC (Bld) 1 % 0 - 2 % [facility] Eosinophils/100 WBC (Bld) 2 % 1 - 4 % [facility] Hematocrit (Bld) [Volume fraction] 28.0 % Low 36.3 - 47.1 % [facility] Hemoglobin.gastroint estinal spec 1 Ql (Stl) 8.8 g/dL Low 11.9 - 15.1 g/dL [facility] Immature granulocytes/100 WBC (Bld) 1 % High 0 [facility] Interpretation and review of laboratory results Abnormal [facility] Lymphocytes/100 WBC (Bld) 22 % Low 24 - 43 % [facility] MCH (RBC) [Entitic mass] 26.9 pg 25.2 - 33.5 pg [facility] MCHC (RBC) [Mass/Vol] 31.4 g/dL 28.4 - 34.8 g/dL [facility] MCV (RBC) [Entitic vol] 85.6 fL 82.6 - 102.9 fL [facility] Monocytes/100 WBC (Bld) 6 % 3 - 12 % [facility] NRBC Automated 0.2 High 0.0 per 100 WBC [facility] Platelet distribution width (Bld) [Ratio] 14.7 % High 11.8 - 14.4 % [facility] Platelet mean volume (Bld) [Entitic vol] 9.8 fL 8.1 - 13.5 fL [facility] Platelets (Bld) [#/Vol] 227 10*3/uL [facility] RBC (Bld) [#/Vol] 3.27 10*6/uL Low 3.95 - 5.1 1 m/uL [facility] RBC (Bld) [#/Vol] ANISOCYTOSIS PRESENT [facility] Segmented neutrophils/100 WBC (Bld) 68 % High 36 - 65 % [facility] Segs Absolute [facility]Bld[facility] [#/Vol] 9.6 10*3/uL [facility] CBC with Diffon 11-25-2021 Abs. Basophil 0.05 k/uL Normal 0.00-0.20 [facility] Comment on above: Performed By: #### C BC, HEPXA, CMPX, MG, TSHX, TROPI #### [facility] [address] [place] [address] Shooting Gallery Operator: Dexter Fried MD #### LIPR #### [address] [address] Shooting Gallery Operator: Paco Tatum MD Abs.Imm.Granulocyte 0.10 k/uL Normal 0.00-0.30 [facility] Comment on above: Performed By: #### C BC, HEPXA, CMPX, MG, TSHX, TROPI #### [facility] [address] [place] [address] Shooting Gallery Operator: Dexter Fried MD #### LIPR #### [address] [address] Shooting Gallery Operator: Paco Tatum MD Abs.Neutrophil (Seg) 6.46 k/uL Normal 1.50-8.10 [facility] Comment on above: Performed By: #### C BC, HEPXA, CMPX, MG, TSHX, TROPI #### [facility] [address] [place] [address] Shooting Gallery Operator: Dexter Fried MD #### LIPR #### [address] [address] Shooting Gallery Operator: Paco Tatum MD Basophils/100 WBC (Bld) 1 % Normal 0-2 [facility] Comment on above: Performed By: #### C BC, HEPXA, CMPX, MG, TSHX, TROPI #### [facility] [address] [place] [address] Shooting Gallery Operator: Dexter Fried MD #### LIPR #### [address] [address] Shooting Gallery Operator: Paco Tatum MD Eosinophils (Bld) [#/Vol] 0.22 10*3/uL Normal 0.00-0.44 [facility] Comment on above: Performed By: #### C BC, HEPXA, CMPX, MG, TSHX, TROPI #### [facility] [address] [place] [address] Shooting Gallery Operator: Dexter Fried MD #### LIPR #### [address] [address] Shooting Gallery Operator: Paco Tatum MD Eosinophils/100 WBC (Bld) 2 % Normal 1-4 [facility] Comment on above: Performed By: #### C BC, HEPXA, CMPX, MG, TSHX, TROPI #### [facility] [address] [place] [address] Shooting Gallery Operator: Dexter Fried MD #### LIPR #### [address] [address] Shooting Gallery Operator: Paco Tatum MD Erythrocyte distribution width (RBC) [Ratio] 14.7 % High 11.8-14.4 [facility] Comment on above: Performed By: #### C BC, HEPXA, CMPX, MG, TSHX, TROPI #### [facility] [address] [place] [address] Shooting Gallery Operator: Dexter Fried MD #### LIPR #### [address] [id number] Shooting Gallery Operator: Paco Tatum MD Hematocrit (Bld) [Volume fraction] 28.0 % Low 36.3-47.1 [facility] Comment on above: Performed By: #### C BC, HEPXA, CMPX, MG, TSHX, TROPI #### [facility] [address] [place] [address] Shooting Gallery Operator: Dexter Fried MD #### LIPR #### [address] [address] Shooting Gallery Operator: Paco Tatum MD Hemoglobin (Bld) [Mass/Vol] 8.8 g/dL Low 11.9-15.1 [facility] Comment on above: Performed By: #### C BC, HEPXA, CMPX, MG, TSHX, TROPI #### [facility] [address] [place] [address] Shooting Gallery Operator: Dexter Fried MD #### LIPR #### [address] [address] Shooting Gallery Operator: Paco Tatum MD Immature granulocytes/100 WBC (Bld) 1 % High 0 [facility] Comment on above: Performed By: #### C BC, HEPXA, CMPX, MG, TSHX, TROPI #### [facility] [address] [place] [address] Shooting Gallery Operator: Dexter Fried MD #### LIPR #### [address] [address] Shooting Gallery Operator: Paco Tatum MD Lymphocytes (Bld) [#/Vol] 2.14 10*3/uL Normal 1.10-3.70 [facility] Comment on above: Performed By: #### C BC, HEPXA, CMPX, MG, TSHX, TROPI #### [facility] [address] [place] [address] Shooting Gallery Operator: Dexter Fried MD #### LIPR #### [address] [address] Shooting Gallery Operator: Paco Tatum MD Lymphocytes/100 WBC (Bld) 22 % Low 24-43 [facility] Comment on above: Performed By: #### C BC, HEPXA, CMPX, MG, TSHX, TROPI #### [facility] [address] [place] [address] Shooting Gallery Operator: Dexter Fried MD #### LIPR #### [address] [address] Shooting Gallery Operator: Paco Tatum MD MCH (RBC) [Entitic mass] 26.9 pg Normal 25.2-33.5 [facility] Comment on above: Performed By: #### C BC, HEPXA, CMPX, MG, TSHX, TROPI #### [facility] [address] [place] [address] Shooting Gallery Operator: Dexter Fried MD #### LIPR #### [address] [address] Shooting Gallery Operator: Paco Tatum MD MCHC (RBC) [Mass/Vol] 31.4 g/dL Normal 28.4-34.8 [facility] Comment on above: Performed By: #### C BC, HEPXA, CMPX, MG, TSHX, TROPI #### [facility] [address] [place] [address] Shooting Gallery Operator: Dexter Fried MD #### LIPR #### [address] [address] Shooting Gallery Operator: Paco Tatum MD MCV (RBC) [Entitic vol] 85.6 fL Normal 82.6-102.9 [facility] Comment on above: Performed By: #### C BC, HEPXA, CMPX, MG, TSHX, TROPI #### [facility] [address] [place] [address] Shooting Gallery Operator: Dexter Fried MD #### LIPR #### [address] [address] Shooting Gallery Operator: Paco Tatum MD Monocytes (Bld) [#/Vol] 0.58 10*3/uL Normal 0.10-1.20 [facility] Comment on above: Performed By: #### C BC, HEPXA, CMPX, MG, TSHX, TROPI #### [facility] [address] [place] [address] Shooting Gallery Operator: Dexter Fried MD #### LIPR #### [address] [address] Shooting Gallery Operator: Paco Tatum MD Monocytes/100 WBC (Bld) 6 % Normal 3-12 [facility] Comment on above: Performed By: #### C BC, HEPXA, CMPX, MG, TSHX, TROPI #### [facility] [address] [place] [address] Shooting Gallery Operator: Dexter Fried MD #### LIPR #### [address] [address] Shooting Gallery Operator: Paco Tatum MD Neutrophil (Seg) 68 % High 36-65 [facility] Comment on above: Performed By: #### C BC, HEPXA, CMPX, MG, TSHX, TROPI #### [facility] [address] [place] [address] Shooting Gallery Operator: Dexter Fried MD #### LIPR #### [address] [address] Shooting Gallery Operator: Paco Tatum MD NRBC Automated 0.2 per 100 WBC High 0.0 [facility] Comment on above: Performed By: #### C BC, HEPXA, CMPX, MG, TSHX, TROPI #### [facility] [address] [place] [address] Shooting Gallery Operator: Dexter Fried MD #### LIPR #### [address] [address] Shooting Gallery Operator: Paco Tatum MD Platelet mean volume (Bld) [Entitic vol] 9.8 fL Normal 8.1-13.5 [facility] Comment on above: Performed By: #### C BC, HEPXA, CMPX, MG, TSHX, TROPI #### [facility] [address] [place] [address] Shooting Gallery Operator: Dexter Fried MD #### LIPR #### [address] [address] Shooting Gallery Operator: Paco Tatum MD Platelets (Bld) [#/Vol] 227 10*3/uL Normal 138-453 [facility] Comment on above: Performed By: #### C BC, HEPXA, CMPX, MG, TSHX, TROPI #### [facility] [address] [place] [address] Shooting Gallery Operator: Dexter Fried MD #### LIPR #### [address] [place] [address] Shooting Gallery Operator: Paco Tatum MD RBC (Bld) [#/Vol] 3.27 10*6/uL Low 3.95-5.11 [facility] Comment on above: Performed By: #### C BC, HEPXA, CMPX, MG, TSHX, TROPI #### [facility] [address] [place] [address] Shooting Gallery Operator: Dexter Fried MD #### LIPR #### [address] [address] Shooting Gallery Operator: Paco Tatum MD RBC morphology finding Nom (Bld) ANISOCYTOSIS PRESENT Normal [facility] Comment on above: Performed By: #### C BC, HEPXA, CMPX, MG, TSHX, TROPI #### [facility] [address] [place] [address] Shooting Gallery Operator: Dexter Fried MD #### LIPR #### [address] [address] Shooting Gallery Operator: Paco Tatum MD WBC (Bld) [#/Vol] 9.6 10*3/uL Normal 3.5-11.3 [facility] Comment on above: Performed By: #### C BC, HEPXA, CMPX, MG, TSHX, TROPI #### [facility] [address] [place] [address] Shooting Gallery Operator: Dexter Fried MD #### LIPR #### [address] [address] Shooting Gallery Operator: Paco Tatum MD Hepatic Function Panelon Albumin [Mass/Vol] 3.2 g/dL Low 3.5 - 5.2 g/dL [facility] ALP (Bld) [Catalytic activity/Vol] 102 U/L 35 - 104 U/L [facility] ALT [Catalytic activity/Vol] 44 U/L High 5 - 33 U/L [facility] AST [Catalytic activity/Vol] 29 U/L <32 [facility] Bilirubin [Mass/Vol] 0.13 mg/dL Low 0.3 - 1 .2 mg/dL [facility] Bilirubin, Indirect Can not be calculated 0.00 - 1.00 mg/dL [facility] Bilirubin.indirect [Mass/Vol] mg/dL <0.31 mg/dL [facility] Free PSA/Total PSA [Mass fraction] 6.2 g/dL Low 6.4 - 8.3 g/dL [facility] Lactate Dehydrogenaseon 11-08 LDH [Catalytic activity/Vol] 183 U/L Normal 135-214 [facility] Comment on above: Performed By: #### C BC, HEPXA, CMPX, MG, TSHX, TROPI #### [facility] [address] [place] [address] Shooting Gallery Operator: Dexter Fried MD #### LIPR #### [facility] [address] [place], [place] [id number] Shooting Gallery Operator: Paco Tatum MD LD 183 U/L 135 - 214 U/L [facility] Liver Profileon 11-25-2021 Albumin [Mass/Vol] 3.2 g/dL Low 3.5-5.2 [facility] Comment on above: Performed By: #### C BC, HEPXA, CMPX, MG, TSHX, TROPI #### [facility] [address] [place] [address] Shooting Gallery Operator: Dexter Fried MD #### LIPR #### [facility] [address] [place], [place] [phone] Shooting Gallery Operator: Paco Tatum MD Alkaline Phos 102 U/L Normal 35-104 [facility] Comment on above: Performed By: #### C BC, HEPXA, CMPX, MG, TSHX, TROPI #### [facility] [address] [place] [address] Shooting Gallery Operator: Dexter Fried MD #### LIPR #### [address] [address] Shooting Gallery Operator: Paco Tatum MD ALT [Catalytic activity/Vol] 44 U/L High 5-33 [facility] Comment on above: Performed By: #### C BC, HEPXA, CMPX, MG, TSHX, TROPI #### [facility] [address] [place] [address] Shooting Gallery Operator: Dexter Fried MD #### LIPR #### [address] [address] Shooting Gallery Operator: Paco Tatum MD AST [Catalytic activity/Vol] 29 U/L Normal <32 [facility] Comment on above: Performed By: #### C BC, HEPXA, CMPX, MG, TSHX, TROPI #### [facility] [address] [place] [address] Shooting Gallery Operator: Dexter Fried MD #### LIPR #### [address] [address] Shooting Gallery Operator: Paco Tatum MD Bilirubin [Mass/Vol] 0.13 mg/dL Low 0.3-1.2 [facility] Comment on above: Performed By: #### C BC, HEPXA, CMPX, MG, TSHX, TROPI #### [facility] [address] [place] [address] Shooting Gallery Operator: Dexter Fried MD #### LIPR #### [address] [address] Shooting Gallery Operator: Paco Tatum MD Bilirubin, Indirect Can not be calculated Normal 0.00- 1.00 [facility] Comment on above: Performed By: #### C BC, HEPXA, CMPX, MG, TSHX, TROPI #### [facility] [address] [place] [address] Shooting Gallery Operator: Dexter Fried MD #### LIPR #### [address] [address] Shooting Gallery Operator: Paco Tatum MD Bilirubin.indirect [Mass/Vol] mg/dL Normal <0.31 [facility] Comment on above: Performed By: #### C BC, HEPXA, CMPX, MG, TSHX, TROPI #### [facility] [address] [place] [address] Shooting Gallery Operator: Dexter Fried MD #### LIPR #### [address] [address] Shooting Gallery Operator: Paco Tatum MD Protein [Mass/Vol] 6.2 g/dL Low 6.4-8.3 [facility] Comment on above: Performed By: #### C BC, HEPXA, CMPX, MG, TSHX, TROPI #### [facility] [address] [place] [address] Shooting Gallery Operator: Dexter Fried MD #### LIPR #### [address] [address] Shooting Gallery Operator: Paco Tatum MD Magnesiumon 11-25-2021 Magnesium [Mass/Vol] 1.9 mg/dL Normal 1.6-2.6 [facility] Comment on above: Performed By: #### C BC, HEPXA, CMPX, MG, TSHX, TROPI #### [facility] [address] [place] [address] [place] [id number] Shooting Gallery Operator: Dexter Fried MD #### LIPR #### [facility] [address] [address] [place], [place] [id number] Shooting Gallery Operator: Paco Tatum MD Magnesium [Mass/Vol] 1.9 mg/dL 1.6 - 2 .6 mg/dL [facility] Microscopic Urinalysison - [facility] Bacteria, UA RARE Abnormal None [facility] Epithelial Cells UA 0 TO 2 [facility] Interpretation and review of laboratory results Abnormal [facility] RBC, UA 5 TO 10 [facility] WBC, UA 0 TO 2 [facility] No Panel Informationon 11-25 Interpretation and review of laboratory results Abnormal [facility] Troponinon 11-25-2021 Troponin, High Sens 6 ng/L Normal 0-14 [facility] Comment on above: Result Comment: High Sensitivity Troponin values cannot be compared with other Troponin methodologies. Patients with high levels of Biotin oral intake (i.e >5mg/day) may have falsely decreased Troponin levels. Samples collected within 8 hours of biotin intake may require additional information for diagnosis. Performed By: #### C BC, HEPXA, CMPX, MG, TSHX, TROPI #### [facility] [address] [facility] [place], [place] [phone] Shooting Gallery Operator: Dexter Fried MD #### LIPR #### [facility] [address] [place], [place] [phone] Shooting Gallery Operator: Paco Tatum MD Troponin, High Sensitivity 6 ng/L 0 - 14 ng/L [facility] Comment on above: High Sensitivity Troponin values cannot be compared with other Troponin methodologies. Patients with high levels of Biotin oral intake (i.e >5mg/day) may have falsely decreased Troponin levels. Samples collected within 8 hours of biotin intake may require additional information for diagnosis. UA w/Reflex Cultureon 2021 Bilirubin, SemiQt,Ur Negative Normal NEG [facility] Comment on above: Performed By: #### C BC, HEPXA, CMPX, MG, TSHX, TROPI #### [facility] [address] [place] [address] Shooting Gallery Operator: Dexter Fried MD #### LIPR #### [address] [address] Shooting Gallery Operator: Paco Tatum MD Blood, Urine 3+ Abnormal NEG [facility] Comment on above: Performed By: #### C BC, HEPXA, CMPX, MG, TSHX, TROPI #### [facility] [address] [place] [address] Shooting Gallery Operator: Dexter Fried MD #### LIPR #### [address] [address] Shooting Gallery Operator: Paco Tatum MD Clarity (U) SLIGHTLY CLOUDY Abnormal CLEAR [facility] Comment on above: Performed By: #### C BC, HEPXA, CMPX, MG, TSHX, TROPI #### [facility] [address] [place] [address] Shooting Gallery Operator: Dexter Fried MD #### LIPR #### [address] [address] Shooting Gallery Operator: Paco Tatum MD Color (U) SHIRA Abnormal YEL [facility] Comment on above: Performed By: #### C BC, HEPXA, CMPX, MG, TSHX, TROPI #### [facility] [address] [place] [address] Shooting Gallery Operator: Dexter Fried MD #### LIPR #### [address] [address] Shooting Gallery Operator: Paco Tatum MD Glucose Ql (U) Negative Normal NEG [facility] Comment on above: Performed By: #### C BC, HEPXA, CMPX, MG, TSHX, TROPI #### [facility] [address] [place] [address] Shooting Gallery Operator: Dexter Fried MD #### LIPR #### [address] [address] Shooting Gallery Operator: Paco Tatum MD Ketones Ql (U) Negative Normal NEG [facility] Comment on above: Performed By: #### C BC, HEPXA, CMPX, MG, TSHX, TROPI #### [facility] [address] [place] [address] Shooting Gallery Operator: Dexter Fried MD #### LIPR #### [address] [address] Shooting Gallery Operator: Paco Tatum MD Leukocyte esterase Test strip Ql (U) TRACE Abnormal NEG [facility] Comment on above: Performed By: #### C BC, HEPXA, CMPX, MG, TSHX, TROPI #### [facility] [address] [place] [address] Shooting Gallery Operator: Dexter Fried MD #### LIPR #### [address] [address] Shooting Gallery Operator: Paco Tatum MD Nitrite,Ur Negative Normal NEG [facility] Comment on above: Performed By: #### C BC, HEPXA, CMPX, MG, TSHX, TROPI #### [facility] [address] [place] [address] Shooting Gallery Operator: Dexter Fried MD #### LIPR #### [address] [address] Shooting Gallery Operator: Paco Tatum MD PH,Ur 6.0 Normal 5.0-8.0 [facility] Comment on above: Performed By: #### C BC, HEPXA, CMPX, MG, TSHX, TROPI #### [facility] [place] [address] Shooting Gallery Operator: Dexter Fried MD #### LIPR #### [address] [address] Shooting Gallery Operator: Paco Tatum MD Protein Ql (U) Negative Normal NEG [facility] Comment on above: Performed By: #### C BC, HEPXA, CMPX, MG, TSHX, TROPI #### [facility] [address] [place] [address] Shooting Gallery Operator: Dexter Fried MD #### LIPR #### [address] [address] Shooting Gallery Operator: Paco Tatum MD Spec. Callahan,Ur 1.015 Normal 1.005-1.030 [facility] Comment on above: Performed By: #### C BC, HEPXA, CMPX, MG, TSHX, TROPI #### [facility] [address] [place] [address] Shooting Gallery Operator: Dexter Fried MD #### LIPR #### [address] [address] Shooting Gallery Operator: Paco Tatum MD Urobilinogen,Ur Normal Normal NORM [facility] Comment on above: Performed By: #### C BC, HEPXA, CMPX, MG, TSHX, TROPI #### [facility] [address] [place] [address] Shooting Gallery Operator: Dexter Fried MD #### LIPR #### [address] [address] Shooting Gallery Operator: Paco Tatum MD Urinalysis with Reflex to Cu ltureon 11-25-2021 Bilirubin Urine Negative NEGATIVE [facility] Color, UA SHIRA Abnormal Yellow [facility] Glucose, Ur Negative NEGATIVE [facility] Interpretation and review of laboratory results Abnormal [facility] Ketones Ql (U) Negative NEGATIVE [facility] Leukocyte esterase Test strip Ql (U) TRACE Abnormal NEGATIVE [facility] Nitrite, Urine Negative NEGATIVE [facility] pH, UA 6.0 [facility] Protein, UA Negative NEGATIVE [facility] Specific Callahan, UA 1.015 [facility] Turbidity UA SLIGHTLY CLOUDY Abnormal Clear [facility] ealt Urine Hgb 3+ Abnormal NEGATIVE [facility] Urobilinogen, Urine Normal Normal [facility] Urinalysis,Microon 2 ----- Normal [facility] Comment on above: Performed By: #### C BC, HEPXA, CMPX, MG, TSHX, TROPI #### [facility] [address] [place] [address] Shooting Gallery Operator: Dexter Fried MD #### LIPR #### [address] [id number] Shooting Gallery Operator: Paco Tatum MD Bacteria RARE Abnormal NONE [facility] Comment on above: Performed By: #### C BC, HEPXA, CMPX, MG, TSHX, TROPI #### [facility] [address] [place] [address] Shooting Gallery Operator: Dexter Fried MD #### LIPR #### [address] [address] Shooting Gallery Operator: Paco Tatum MD Epithelial cells LM Ql (Urine sed) 0 TO 2 Normal 0-5 [facility] Comment on above: Performed By: #### C BC, HEPXA, CMPX, MG, TSHX, TROPI #### [facility] [address] [place], [place] [phone] Shooting Gallery Operator: Dexter Fried MD #### LIPR #### [address] [place], [place] [phone] Shooting Gallery Operator: Paco Tatum MD Urine RBC's 5 TO 10 Normal 0-2 [facility] Comment on above: Performed By: #### C BC, HEPXA, CMPX, MG, TSHX, TROPI #### [facility] [address] [place], [place] [phone] Shooting Gallery Operator: Dexter Fried MD #### LIPR #### [address] [id number] Shooting Gallery Operator: Paco Tatum MD Urine WBC's 0 TO 2 Normal 0-5 [facility] Comment on above: Performed By: #### C BC, HEPXA, CMPX, MG, TSHX, TROPI #### [facility] [address] [place] [address] Shooting Gallery Operator: Dexter Fried MD #### LIPR #### [address] [address] Shooting Gallery Operator: Paco Tatum MD POINT OF CARE GLUCOSEon 11-08 Glucose [Mass/Vol] 123 mg/dL Critically high 74-106 T [facility] Comment on above: Performed By: #### C VDTB #### [facility] [address] [place] [address] Dr. Emmanuel Murray CBC AUTO DIFFon 11-22-2021 BASO # 0.0 103/ul Normal 0.0-0.1 [facility] Comment on above: Performed By: #### C BC #### [facility] [address] [address] [address] Emmanuel Murray Basophils/100 WBC (Bld) 0.3 % Normal 0.2-2.0 [facility] Comment on above: Performed By: #### C BC #### [facility] [address] [address] [address] Emmanuel Murray EO # 0.2 103/ul Normal 0.0-0.7 [facility] Comment on above: Performed By: #### C BC #### [facility] [address] [place] [address] Dr. Emmanuel Murray Eosinophils/100 WBC (Bld) 1.4 % Normal 0.9-7.0 [facility] Comment on above: Performed By: #### C BC #### [facility] [address] [place] [address] Dr. Emmanuel Murray Erythrocyte distribution width (RBC) [Ratio] 14.7 % Normal 11.0-15.0 [facility] Comment on above: Performed By: #### C BC #### [facility] [address] [place] [address] Dr. Emmanuel Murray Hematocrit (Bld) [Volume fraction] 28.9 % Critically low 36.0-48.0 [facility] Comment on above: Performed By: #### C BC #### [facility] [address] [place] [address] Dr. Emmanuel Murray Hemoglobin (Bld) [Mass/Vol] 9.5 g/dL Critically low 12.0-16.0 [facility] Comment on above: Performed By: #### C BC #### [facility] [address] [place] [address] Dr. Emmanuel Murray IG # 0.09 10e3/ul Critically high 0.00-0.03 [facility] Comment on above: Performed By: #### C BC #### [facility] [address] [place] [address] Dr. Emmanuel Murray IG % 0.8 % Critically high 0.0-0.5 [facility] Comment on above: Performed By: #### C BC #### [facility] [address] [place] [address] Dr. Emmanuel Murray LYMPH # 2.5 103/ul Normal 1.2-3.8 [facility] Comment on above: Performed By: #### C BC #### [facility] [address] [place] [address] Dr. Emmanuel Murray Lymphocytes/100 WBC (Bld) 21.4 % Normal 20.5-60.0 [facility] Comment on above: Performed By: #### C BC #### [facility] [address] [place] [address] Dr. Emmanuel Murray MANUAL DIFF REQ NO Normal [facility] Comment on above: Performed By: #### C BC #### [facility] [address] [place] [address] Dr. Emmanuel Murray MCH (RBC) [Entitic mass] 28.1 pg Normal 26.7-34.0 [facility] Comment on above: Performed By: #### C BC #### [facility] [address] [place] [address] Dr. Emmanuel Murray MCHC (RBC) [Mass/Vol] 32.9 g/dL Normal 29.9-35.2 [facility] Comment on above: Performed By: #### C BC #### [facility] [address] [place] [address] Dr. Emmanuel Murray MCV (RBC) [Entitic vol] 85.5 fL Normal 81.0-99.0 [facility] Comment on above: Performed By: #### C BC #### [facility] [address] [place] [address] Dr. Emmanuel Murray MONO # 0.6 103/ul Normal 0.3-0.8 [facility] Comment on above: Performed By: #### C BC #### [facility] [address] [place] [address] Dr. Emmanuel Murray Monocytes/100 WBC (Bld) 5.2 % Normal 1.7-12.0 [facility] Comment on above: Performed By: #### C BC #### [facility] [address] [place] [address] Dr. Emmanuel Murray NEUT # 8.1 103/ul Critically high 1.4-6.5 [facility] Comment on above: Performed By: #### C BC #### [facility] [address] [place] [address] Dr. Emmanuel Murray Neutrophils/100 WBC (Bld) 70.9 % Normal 43.0-75.0 [facility] Comment on above: Performed By: #### C BC #### [facility] [address] [place] [address] Dr. Emmanuel Murray Platelet mean volume (Bld) [Entitic vol] 10.0 fL Normal 9.5-13.5 [facility] Comment on above: Performed By: #### C BC #### [facility] [address] [place] [address] Dr. Emmanuel Murray PLT 186 103/ul Normal 150-450 [facility] Comment on above: Performed By: #### C BC #### [facility] [address] [place] [address] Dr. Emmanuel Murray RBC 3.38 106/ul Critically low 4.20-5.40 [facility] Comment on above: Performed By: #### C BC #### [facility] [address] [place] [address] Dr. Emmanuel Murray WBC 11.4 103/ul Critically high 4.0-11.0 [facility] Comment on above: Performed By: #### C BC #### [facility] [address] [place] [address] Dr. Emmanuel Murray CBC AUTO DIFFon 11-20-2021 BASO # 0.1 103/ul Normal 0.0-0.1 [facility] Comment on above: Performed By: #### C VDTBH #### [facility] [address] [place] [address] Dr. Emmanuel Murray Basophils/100 WBC (Bld) 0.4 % Normal 0.2-2.0 [facility] Comment on above: Performed By: #### C VDTBH #### [facility] [address] [place] [address] Dr. Emmanuel Murray EO # 0.1 103/ul Normal 0.0-0.7 [facility] Comment on above: Performed By: #### C VDTBH #### [facility] [address] [place] [address] Dr. Emmanuel Murray Eosinophils/100 WBC (Bld) 0.4 % Critically low 0.9-7.0 [facility] Comment on above: Performed By: #### C VDTBH #### [facility] [address] [place] [address] Dr. Emmanuel Murray Erythrocyte distribution width (RBC) [Ratio] 14.8 % Normal 11.0-15.0 [facility] Comment on above: Performed By: #### C VDTBH #### [facility] [address] [place] [address] Dr. Emmanuel Murray Hematocrit (Bld) [Volume fraction] 32.6 % Critically low 36.0-48.0 [facility] Comment on above: Performed By: #### C VDTBH #### [facility] [address] [place] [address] Dr. Emmanuel Murray Hemoglobin (Bld) [Mass/Vol] 10.6 g/dL Critically low 12.0-16.0 [facility] Comment on above: Performed By: #### C VDTBH #### [facility] [address] [place] [address] Dr. Emmanuel Murray IG # 0.10 10e3/ul Critically high 0.00-0.03 [facility] Comment on above: Performed By: #### C VDTBH #### [facility] [address] [place] [address] Dr. Emmanuel Murray IG % 0.9 % Critically high 0.0-0.5 [facility] Comment on above: Performed By: #### C VDTBH #### [facility] [address] [place] [address] Dr. Emmanuel Murray LYMPH # 2.3 103/ul Normal 1.2-3.8 [facility] Comment on above: Performed By: #### C VDTBH #### [facility] [address] [place] [address] Dr. Emmanuel Murray Lymphocytes/100 WBC (Bld) 19.6 % Critically low 20.5-60.0 [facility] Comment on above: Performed By: #### C VDTBH #### [facility] [address] [place] [address] Dr. Emmanuel Murray MANUAL DIFF REQ NO Normal [facility] Comment on above: Performed By: #### C VDTBH #### [facility] [address] [place] [address] Dr. Emmanuel Murray MCH (RBC) [Entitic mass] 27.2 pg Normal 26.7-34.0 [facility] Comment on above: Performed By: #### C VDTBH #### [facility] [address] [place] [address] Dr. Emmanuel Murray MCHC (RBC) [Mass/Vol] 32.5 g/dL Normal 29.9-35.2 [facility] Comment on above: Performed By: #### C VDTBH #### [facility] [address] [place] [address] Dr. Emmanuel Murray MCV (RBC) [Entitic vol] 83.6 fL Normal 81.0-99.0 [facility] Comment on above: Performed By: #### C VDTBH #### [facility] [address] [place] [address] Dr. Emmanuel Murray MONO # 0.5 103/ul Normal 0.3-0.8 [facility] Comment on above: Performed By: #### C VDTBH #### [facility] [address] [place] [address] Dr. Emmanuel Murray Monocytes/100 WBC (Bld) 4.4 % Normal 1.7-12.0 [facility] Comment on above: Performed By: #### C VDTBH #### [facility] [address] [place] [address] Dr. Emmanuel Murray NEUT # 8.7 103/ul Critically high 1.4-6.5 [facility] Comment on above: Performed By: #### C VDTBH #### [facility] [address] [place] [address] Dr. Emmanuel Murray Neutrophils/100 WBC (Bld) 74.3 % Normal 43.0-75.0 [facility] Comment on above: Performed By: #### C VDTBH #### [facility] [address] [address] [address] Emmanuel Murray Platelet mean volume (Bld) [Entitic vol] 10.1 fL Normal 9.5-13.5 [facility] Comment on above: Performed By: #### C VDTBH #### [facility] [address] [address] [address] Emmanuel Murray PLT 239 103/ul Normal 150-450 [facility] Comment on above: Performed By: #### C VDTBH #### [facility] [address] [address] [address] Emmanuel Murray RBC 3.90 106/ul Critically low 4.20-5.40 [facility] Comment on above: Performed By: #### C VDTBH #### [facility] [address] [address] [address] Emmanuel Murray WBC 11.7 103/ul Critically high 4.0-11.0 [facility] Comment on above: Performed By: #### C VDTBH #### [facility] [address] [address] [address] Emmanuel Murray Covid-19 PCR ([facility])on 11-08 SARS-CoV-2 (COVID-19) RNA MYNOR+probe Ql (Unsp spec) Not detected Normal NOT DETECTED [facility] Comment on above: Result Comment: When [...] for this test is supported by the Chief Business Officer of Health and Human Service's declaration that [...] used). Performed By: #### C VDTBH #### [facility] [address] [place] [address] Dr. Emmanuel Murray DRUG SCREEN RAPID (URINE)on 11-20-2021 AMP Negative Normal NEGATIVE [facility] Comment on above: Performed By: #### D RUGRPD #### [facility] [address] [place] [address] Dr. Emmanuel Murray BAR Negative Normal NEGATIVE [facility] Comment on above: Performed By: #### D RUGRPD #### [facility] [address] [place] [address] Dr. Emmanuel Murray BUP Negative Normal NEGATIVE [facility] Comment on above: Performed By: #### D RUGRPD #### [facility] [address] [place] [address] Dr. Emmanuel Murray BZO Negative Normal NEGATIVE [facility] Comment on above: Performed By: #### D RUGRPD #### [facility] [address] [place] [address] Dr. Emmanuel Murray PATI Negative Normal NEGATIVE [facility] Comment on above: Performed By: #### D RUGRPD #### [facility] [address] [place] [address] Dr. Emmanuel Murray CUT-OFFS SEE BELOW Normal [facility] Comment on above: Result Comment: AMP (Amphetamine): 500ng/mL, BAR (Barbituates): 200 ng/mL, BZO (Benzodiazepines): 150 ng/mL, BUP (Buprenorphine): 10 ng/mL, PATI (Cocaine): 150 ng/mL, mAMP (Methamphetamine): 500 ng/mL, MTD (Methadone): 200 ng/mL, OPI (Opiates): 100 ng/mL, OXY (Oxycodone): 100 ng/mL, PCP (Phencyclidine): 25 ng/mL, PPX (Propoxyphene): 300 ng/mL, THC (Cannabinoids): 50 ng/mL, TCA (Trycyclic Antidepressants): 300 ng/mL Performed By: #### D RUGRPD #### [facility] [address] [address] [address] Emmanuel Murray DRUG CUT HEADER DRUG CLASS TEST SYSTEM CUT-OFF CONCENTRATIONS ARE FOLLOWS: Normal [facility] Comment on above: Performed By: #### D RUGRPD #### [facility] [address] [address] [address] Emmanuel Murray mAMP Negative Normal NEGATIVE [facility] Comment on above: Performed By: #### D RUGRPD #### [facility] [address] [address] [address] Emmanuel Murray MTD Negative Normal NEGATIVE [facility] Comment on above: Performed By: #### D RUGRPD #### [facility] [address] [place] [address] Dr. Emmanuel Murray OPI Negative Normal NEGATIVE [facility] Comment on above: Performed By: #### D RUGRPD #### [facility] [address] [place] [address] Dr. Emmanuel Murray OXY Negative Normal NEGATIVE [facility] Comment on above: Performed By: #### D RUGRPD #### [facility] [address] [address] [address] Emmanuel Murray PCP Negative Normal NEGATIVE [facility] Comment on above: Performed By: #### D RUGRPD #### [facility] [address] [place] [address] Dr. Emmanuel Murray PPX Negative Normal NEGATIVE [facility] Comment on above: Performed By: #### D RUGRPD #### [facility] [address] [address] [address] Emmanuel Murray TCA Negative Normal NEGATIVE [facility] Comment on above: Performed By: #### D RUGRPD #### [facility] [address] [address] [address] Emmanuel Murray THC Negative Normal NEGATIVE [facility] Comment on above: Performed By: #### D RUGRPD #### [facility] [address] [place] [address] Dr. Emmanuel Murray TYPE AND SCREENon 11-20-2021 TYPE AND SCREEN Negative Normal [facility] Comment on above: Performed By: #### C VDTB #### [facility] [address] [place] [address] Dr. Emmanuel Murray Vital Signs Date Time Vital Sign Value Performing Clinician Facility 03-20-2025 09:27-0400 Body mass index (BMI) [Ratio] 42.89 kg/m2 [facility] 03-20-2025 09:27-0400 Body weight 102.97 kg [facility] 03-20-2025 09:27-0400 Diastolic blood pressure 70 mm[Hg] [facility] 03-20-2025 09:27-0400 Systolic blood pressure 118 mm[Hg] [facility] 01-01-2025 11:00-0400 Body height 154.9 cm Moriah Hoitenga PA-C Work Phone: [facility] 01-01-2025 11:00-0400 Body mass index (BMI) [Ratio] 45.31 kg/m2 Moriah Hoitenga PA-C Work Phone: [facility] 01-01-2025 11:00-0400 Body weight 108.73 kg Moriah Hoitenga PA-C Work Phone: [facility] 01-01-2025 11:00-0400 Diastolic blood pressure 73 mm[Hg] Moriah Hoitenga PA-C Work Phone: [facility] 01-01-2025 11:00-0400 Heart rate 84 /min Moriah Hoitenga PA-C Work Phone: [facility] 01-01-2025 11:00-0400 SaO2% (BldA) [Mass fraction] 100 % Moriah Hoitenga PA-C Work Phone: [facility] 01-01-2025 11:00-0400 Systolic blood pressure 110 mm[Hg] Moriah Hoitenga PA-C Work Phone: [facility] 10-10-2024 15:32-0500 Body height 154.9 cm Riddhi Plata MD Work Phone: [facility] 10-10-2024 15:32-0500 Body mass index (BMI) [Ratio] 50.26 kg/m2 Riddhi Plata MD Work Phone: [facility] 10-10-2024 15:32-0500 Body weight 120.66 kg Riddhi Plata MD Work Phone: [facility] 10-10-2024 15:32-0500 Diastolic blood pressure 74 mm[Hg] Riddhi Plata MD Work Phone: [facility] 10-10-2024 15:32-0500 Heart rate 91 /min Riddhi Plata MD Work Phone: [facility] 10-10-2024 15:32-0500 Respiratory rate 18 /min Riddhi Plata MD Work Phone: [facility] 10-10-2024 15:32-0500 SaO2% (BldA) [Mass fraction] 97 % Riddhi Plata MD Work Phone: [facility] 10-10-2024 15:32-0500 Systolic blood pressure 132 mm[Hg] Riddhi Plata MD Work Phone: [facility] 08-25-2024 08:16-0500 Body height 154.9 cm Riddhi Plata MD Work Phone: [facility] 08-25-2024 08:16-0500 Body mass index (BMI) [Ratio] 53.81 kg/m2 Riddhi Plata MD Work Phone: [facility] 08-25-2024 08:16-0500 Body weight 129.18 kg Riddhi Plata MD Work Phone: [facility] 08-25-2024 08:16-0500 Diastolic blood pressure 70 mm[Hg] Riddhi Plata MD Work Phone: [facility] 08-25-2024 08:16-0500 Heart rate 86 /min Riddhi Plata MD Work Phone: [facility] 08-25-2024 08:16-0500 Respiratory rate 18 /min Riddhi Plata MD Work Phone: [facility] 08-25-2024 08:16-0500 SaO2% (BldA) [Mass fraction] 98 % Riddhi Plata MD Work Phone: [facility] 08-25-2024 08:16-0500 Systolic blood pressure 114 mm[Hg] Riddhi Plata MD Work Phone: [facility] 06-12-2024 15:47-0400 Body height 154.9 cm Riddhi Plata MD Work Phone: [facility] 06-12-2024 15:47-0400 Body mass index (BMI) [Ratio] 60.27 kg/m2 Riddhi Plata MD Work Phone: [facility] 06-12-2024 15:47-0400 Body weight 144.7 kg Riddhi Plata MD Work Phone: [facility] 06-12-2024 15:47-0400 Respiratory rate 18 /min Riddhi Plata MD Work Phone: [facility] 06-04-2024 10:00-0400 Body height 154.[address] [facility] 06-04-2024 10:00-0400 Body mass index (BMI) [Ratio] 60.95 kg/m2 Les Sorg RD [facility] 06-04-2024 10:00-0400 Body weight 146.[address] [facility] 05-01-2024 12:07-0400 Body height 154.9 cm Tonia Manzo MD Work Phone: [facility] Comment on above: 5'1 05-01-2024 12:07-0400 Body mass index (BMI) [Ratio] 63.86 kg/m2 Tonia Manzo MD Work Phone: [facility] 05-01-2024 12:07-0400 Body weight 153.32 kg Tonia Manzo MD Work Phone: [facility] 05-01-2024 12:07-0400 Diastolic blood pressure 83 mm[Hg] Tonia Manzo MD Work Phone: [facility] 05-01-2024 12:07-0400 Heart rate 108 /min Tonia Manzo MD Work Phone: [facility] 05-01-2024 12:07-0400 Systolic blood pressure 127 mm[Hg] Tonia Manzo MD Work Phone: [facility] [employer] 04-24-2024 08:54-0400 Body height 154.9 cm Tonia Manzo MD Work Phone: [facility] [employer] 04-24-2024 08:35-0400 Body temperature 98.2 [degF] Tonia Manzo MD Work Phone: [facility] 04-24-2024 08:35-0400 Diastolic blood pressure 71 mm[Hg] Tonia Manzo MD Work Phone: [facility] 04-24-2024 08:35-0400 Heart rate 52 /min Tonia Manzo MD Work Phone: [facility] 04-24-2024 08:35-0400 Respiratory rate 20 /min Tonia Manzo MD Work Phone: [facility] 04-24-2024 08:35-0400 SaO2% (BldA) [Mass fraction] 98 % Tonia Manzo MD Work Phone: [facility] 04-24-2024 08:35-0400 Systolic blood pressure 133 mm[Hg] Tonia Manzo MD Work Phone: [facility] 04-24-2024 08:30-0400 Body mass index (BMI) [Ratio] 66.9 kg/m2 Tonia Manzo MD Work Phone: [facility] 04-24-2024 08:30-0400 Body weight 160.6 kg Tonia Manzo MD Work Phone: [facility] 04-15-2024 08:49-0400 Body height 154.9 cm [facility] 04-15-2024 08:49-0400 Body mass index (BMI) [Ratio] 67.98 kg/m2 [facility] 04-15-2024 08:49-0400 Body temperature 98.2 [degF] [facility] 04-15-2024 08:49-0400 Body weight 163.2 kg [facility] 04-15-2024 08:49-0400 Diastolic blood pressure 58 mm[Hg] [facility] 04-15-2024 08:49-0400 Heart rate 76 /min [facility] 04-15-2024 08:49-0400 Respiratory rate 18 /min [facility] 04-15-2024 08:49-0400 SaO2% (BldA) [Mass fraction] 97 % [facility] 04-15-2024 08:49-0400 Systolic blood pressure 112 mm[Hg] [facility] 03-27-2024 13:33-0400 Body height 157.5 cm Tonia Manzo MD Work Phone: [facility] 03-27-2024 13:33-0400 Body mass index (BMI) [Ratio] 65.43 kg/m2 Tonia Manzo MD Work Phone: [facility] 03-27-2024 13:33-0400 Body weight 162.3 kg Tonia Manzo MD Work Phone: [facility] 03-27-2024 13:33-0400 Diastolic blood pressure 84 mm[Hg] Tonia Manzo MD Work Phone: [facility] 03-27-2024 13:33-0400 Heart rate 76 /min Tonia Manzo MD Work Phone: [facility] 03-27-2024 13:33-0400 Respiratory rate 16 /min Tonia Manzo MD Work Phone: [facility] 03-27-2024 13:33-0400 Systolic blood pressure 131 mm[Hg] Tonia Manzo MD Work Phone: [facility] 03-17-2024 08:27-0400 Body height 157.5 cm Osiris Venegas MD Work Phone: [facility] 03-17-2024 08:27-0400 Body mass index (BMI) [Ratio] 66.94 kg/m2 Osiris Venegas MD Work Phone: [facility] 03-17-2024 08:27-0400 Body weight 166.02 kg Osiris Venegas MD Work Phone: [facility] 03-17-2024 08:27-0400 Diastolic blood pressure 80 mm[Hg] Osiris Venegas MD Work Phone: [facility] 03-17-2024 08:27-0400 Heart rate 80 /min Osiris Venegas MD Work Phone: [facility] 03-17-2024 08:27-0400 SaO2% (BldA) [Mass fraction] 97 % Osiris Venegas MD Work Phone: [facility] 03-17-2024 08:27-0400 Systolic blood pressure 130 mm[Hg] Osiris Venegas MD Work Phone: [facility] 03-06-2024 13:00-0400 Body mass index (BMI) [Ratio] 66.21 kg/m2 Les Sorg RD [facility] 03-06-2024 13:00-0400 Body weight 164.[address] [facility] 02-07-2024 13:00-0400 Body mass index (BMI) [Ratio] 66.76 kg/m2 Les Sorg RD [facility] 02-07-2024 13:00-0400 Body weight 165.[address] [facility] 01-02-2024 12:00-0400 Body mass index (BMI) [Ratio] 65.41 kg/m2 Les Sorg RD [facility] 01-02-2024 12:00-0400 Body weight 162.[address] [facility] 12-05-2023 13:00-0400 Body mass index (BMI) [Ratio] 65.92 kg/m2 Les Sorg RD [facility] 12-05-2023 13:00-0400 Body weight 163.[address] [facility] 11-08-2023 11:00-0500 Body mass index (BMI) [Ratio] 65.66 kg/m2 Les Sorg RD [facility] 11-08-2023 11:00-0500 Body weight 162.[address] [facility] 10-10-2023 07:53-0500 Body height 154.9 cm Theodora Early MD Work Phone: 1(078)618-890053 [place] [address] 10-10-2023 07:53-0500 Body mass index (BMI) [Ratio] 68.4 kg/m2 Theodora Early MD Work Phone: 4(082)598-632153 [place] [address] 10-10-2023 07:53-0500 Body weight 164.2 kg Theodora Early MD Work Phone: 7(815)974-498453 [place] [address] 10-10-2023 07:53-0500 Diastolic blood pressure 70 mm[Hg] Theodora Early MD Work Phone: 8(792)685-484353 [place] [address] 10-10-2023 07:53-0500 Heart rate 78 /min Theodora Early MD Work Phone: [facility] 10-10-2023 07:53-0500 SaO2% (BldA) [Mass fraction] 97 % Theodora Early MD Work Phone: 9(328)614-331953 [place] [address] 10-10-2023 07:53-0500 Systolic blood pressure 128 mm[Hg] Theodora Early MD Work Phone: 3(281)283-725453 [place] [address] 10-09-2023 11:00-0500 Body mass index (BMI) [Ratio] 67.38 kg/m2 Les Sorg RD [facility] 10-09-2023 11:00-0500 Body weight 161.[address] [facility] 09-27-2023 11:41-0500 Body height 154.9 cm Jalyn Vidal DO Work Phone: [facility] [employer] 09-27-2023 11:41-0500 Body mass index (BMI) [Ratio] 67.85 kg/m2 Jalyn Vidal DO Work Phone: [facility] 09-27-2023 11:41-0500 Body weight 162.89 kg Jalyn Vidal DO Work Phone: [facility] [employer] 09-27-2023 11:41-0500 Diastolic blood pressure 89 mm[Hg] Jalyn Vidal DO Work Phone: [facility] [employer] 09-27-2023 11:41-0500 Heart rate 68 /min Jalyn Vidal DO Work Phone: [facility] [employer] 09-27-2023 11:41-0500 SaO2% (BldA) [Mass fraction] 98 % Jalyn Vidal DO Work Phone: [facility] [employer] 09-27-2023 11:41-0500 Systolic blood pressure 144 mm[Hg] Jalyn Vidal DO Work Phone: [facility] [employer] 09-06-2023 11:00-0500 Body mass index (BMI) [Ratio] 67.17 kg/m2 [facility] 09-06-2023 11:00-0500 Body weight 161.[address] [facility] 12-05-2021 15:29-0400 Body height 154.9 cm Duarte Sosa MD Work Phone: [employer] 12-05-2021 15:29-0400 Body mass index (BMI) [Ratio] 51.51 kg/m2 Duarte Sosa MD Work Phone: [employer] 12-05-2021 15:29-0400 Body temperature 98.01 [degF] Duarte Sosa MD Work Phone: [employer] 12-05-2021 15:29-0400 Body weight 123.65 kg Duarte Sosa MD Work Phone: [employer] 12-05-2021 15:29-0400 Diastolic blood pressure 85 mm[Hg] Duarte Sosa MD Work Phone: [employer] 12-05-2021 15:29-0400 Heart rate 62 /min Duarte Sosa MD Work Phone: [employer] 12-05-2021 15:29-0400 Respiratory rate 14 /min Duarte Sosa MD Work Phone: [employer] 12-05-2021 15:29-0400 SaO2% (BldA) [Mass fraction] 100 % Duarte Sosa MD Work Phone: [employer] 12-05-2021 15:29-0400 Systolic blood pressure 128 mm[Hg] Duarte Sosa MD Work Phone: [employer] 12-01-2021 15:11-0400 Diastolic blood pressure 76 mm[Hg] Gunjan Valentino DO Work Phone: [employer] 12-01-2021 15:11-0400 Heart rate 77 /min Gunjan Valentino DO Work Phone: [employer] 12-01-2021 15:11-0400 Systolic blood pressure 155 mm[Hg] Gunjan Valentino DO Work Phone: [employer] 12-01-2021 04:14-0400 Body temperature 98.1 [degF] Gunjan Valentino DO Work Phone: [employer] 12-01-2021 04:00-0400 Respiratory rate 20 /min Gunjan Valentino DO Work Phone: [employer] 12-01-2021 04:00-0400 SaO2% (BldA) [Mass fraction] 95 % Gunjan Valentino DO Work Phone: [employer] 12-01-2021 00:00-0400 Body height 154.9 cm Gunjan Valentino DO Work Phone: [employer] 12-01-2021 00:00-0400 Body mass index (BMI) [Ratio] 52.72 kg/m2 Gunjan Valentino DO Work Phone: [employer] 12-01-2021 00:00-0400 Body weight 126.55 kg Gunjan Valentino DO Work Phone: [employer] 11-29-2021 09:58-0400 Diastolic blood pressure 64 mm[Hg] Marielos Torres MD Work Phone: [employer] 11-29-2021 09:58-0400 Heart rate 84 /min Marielos Torres MD Work Phone: [employer] 11-29-2021 09:58-0400 Respiratory rate 18 /min Marielos Torres MD Work Phone: [employer] 11-29-2021 09:58-0400 Systolic blood pressure 132 mm[Hg] Marielos Torres MD Work Phone: [employer] 11-29-2021 08:01-0400 Body temperature 97.9 [degF] Marielos Torres MD Work Phone: [employer] 11-28-2021 08:00-0400 SaO2% (BldA) [Mass fraction] 95 % Marielos Torres MD Work Phone: [employer] 11-26-2021 06:15-0400 Body height 154.9 cm Marielos Torres MD Work Phone: [employer] 11-26-2021 06:15-0400 Body mass index (BMI) [Ratio] 54.8 kg/m2 Marielos Torres MD Work Phone: [employer] 11-26-2021 06:15-0400 Body weight 131.54 kg Marielos Torres MD Work Phone: [employer] 11-26-2021 01:00-0400 Diastolic blood pressure 80 mm[Hg] Tonia Garibay DO Work Phone: [employer] 11-26-2021 01:00-0400 Heart rate 73 /min Tonia Garibay DO Work Phone: [employer] 11-26-2021 01:00-0400 Respiratory rate 28 /min Tonia Garibay DO Work Phone: [employer] 11-26-2021 01:00-0400 SaO2% (BldA) [Mass fraction] 96 % Tonia Garibay DO Work Phone: [employer] 11-26-2021 01:00-0400 Systolic blood pressure 142 mm[Hg] Tonia Garibay DO Work Phone: [employer] 11-25-2021 18:54-0400 Body height 154.9 cm Tonia Garibay DO Work Phone: [employer] 11-25-2021 18:54-0400 Body mass index (BMI) [Ratio] 54.8 kg/m2 Tonia Garibay DO Work Phone: [employer] 11-25-2021 18:54-0400 Body temperature 98.2 [degF] Tonia Garibay DO Work Phone: [employer] 11-25-2021 18:54-0400 Body weight 131.54 kg Tonia Garibay DO Work Phone: [employer] Encounters Encounter Date Encounter Type Care Provider Facility Start: 03-25-2025 End: 03-25-2025 Clinisync Result Encounter Generic External Data Provider [facility] External Department Unsolicited Start: 03-25-2025 End: 03-25-2025 Clinisync Result Encounter Generic External Data Provider [facility] External Department Unsolicited Start: 03-20-2025 End: 03-20-2025 Office outpatient visit 5 minutes Carmen Nurse [facility] Comment on above: GA: 10w0d Start: 03-20-2025 End: 03-20-2025 ambulatory RIDDHI PLATA Not Available Start: 01-01-2025 End: 01-01-2025 Office outpatient visit 25 minutes Tonia Manzo MD Work Phone: [facility] Comment on above: History of Bonnie-en-Y gastric bypass (Primary Dx); Postsurgical malabsorption; Malnutrition following gastrointestinal surgery; History of anemia; B12 deficiency Start: 01-01-2025 End: 01-01-2025 ambulatory MORIAH Arredondo [facility] Start: 01-01-2025 End: 01-01-2025 ambulatory MAY DUNLAP [facility] Start: 12-15-2024 End: 12-15-2024 Emergency department patient visit RIDDHI Jonas CHRISTIANSONER [facility] Start: 10-30-2024 End: 10-30-2024 Orders Only Nilam Stallworth RN Work Phone: [facility] Comment on above: Malnutrition [...] [facility] Start: 10-10-2024 End: 10-10-2024 Bamboo flowsheet Riddhi [...] [facility] Start: 06-04-2024 End: 06-04-2024 Ambulatory [facility] Start: 06-04-2024 End: 06-04-2024 Admission to same day surgery center Tonia Manzo MD Work Phone: [facility] Comment on above: Dietary counseling a nd surveillance (Primary Dx); Malnutrition following gastrointestinal surgery; Postsurgical malabsorption; H/O gastric bypass Malnutrition followi ng gastrointestinal surgery (Primary Dx); Postsurgical malabsorption; H/O gastric bypass; B12 deficiency Start: 05-01-2024 End: 05-01-2024 Admission to same day surgery center Les Diane RD [facility] Comment on above: Dietary counseling a nd surveillance (Primary Dx); Morbid obesity ([facility]); Malnutrition following gastrointestinal surgery; Postsurgical malabsorption Start: 05-01-2024 End: 05-01-2024 Postop follow up visit related to original px Tonia Manzo MD Work Phone: [facility] Comment on above: LUCIANO on CPAP (Primary Dx); H/O gastric bypass; Postoperative malabsorption; Malnutrition following gastrointestinal surgery Start: 05-01-2024 End: [facility]-01[facility]: 05-01-[facility]24 End: 05-01-2024 ambulatory TONIA CABRERAMAN [facility] Start: 04-27-2024 End: 04-27-2024 Telephone encounter Shayy Alonso [facility] Comment on above: bloody mocus Start: 04-24-2024 End: 04-24-2024 Evaluation and management of inpatient RIDDHI PLATA [facility] Start: 04-23-2024 End: 04-24-2024 Evaluation and management of inpatient Tonia Manzo MD Work Phone: [facility] Acute Comment on above: Class 3 severe obesi ty due to excess calories with serious comorbidity and body mass index (BMI) of 60.0 to 69.9 in adult ([facility]) (Primary Dx); History of pulmonary embolism; Acute post-operative pain Start: 04-17-2024 End: 04-17-2024 Telephone encounter Nilam Stallworth RN Work Phone: [facility] Start: 04-15-2024 End: 04-15-2024 Office outpatient visit 5 minutes [facility] S[facility] Nurse [facility] Comment on above: Morbid obesity with BMI of 60.0-69.9, adult ([facility]) (Primary Dx) Start: 04-15-2024 End: 04-15-2024 Patient encounter status Nilam Stallworth RN Work Phone: [facility] Work Phone: Start: 04-15-2024 Encounter for other preprocedural examination [facility] Start: 04-15-2024 End: 04-15-2024 Orders Only Nilam Stallworth RN Work Phone: [facility] Comment on above: Preop testing (Prima ry Dx) Pre-op testing (Prim joey Dx) Start: 03-27-2024 End: 03-27-2024 ambulatory TONIA Maria Elena ANAIS [facility] Start: 03-27-2024 End: 03-27-2024 Office outpatient visit 10 minutes Tonia Manzo MD Work Phone: [facility] Comment on above: PONV (postoperative nausea and vomiting) (Primary Dx); Unable to assess patient's smoking status within the last 12 months; Constipation, unspecified constipation type; Vitamin D deficiency; Chronic RUQ pain Start: 03-27-2024 End: 03-27-2024 ambulatory TONIA Arredondo [facility] Start: 03-24-2024 End: 03-24-2024 ambulatory TONIA Arredondo [facility] Start: 03-24-2024 [facility] Start: 03-17-2024 End: 03-17-2024 Office consultation new/estab patient 40 min Max Bhandari MD Work Phone: [facility] Comment on above: Preop cardiovascular exam (Primary Dx) Start: 03-17-2024 End: 03-17-2024 Patient encounter status Max Bhandari MD Work Phone: [facility] Start: 03-17-2024 End: 03-17-2024 ambulatory [facility] Start: 03-17-2024 Encounter for preprocedural cardiovascular examination [facility] Start: 03-12-2024 End: 03-12-2024 Telephone encounter Anne Ruiz CMA [facility] Start: 03-06-2024 End: 03-06-2024 Telemedicine consultation with patient Les Jose Maria RODRIGUEZ [facility] Comment on above: Pre-bariatric surger y nutrition evaluation (Primary Dx); Morbid obesity ([facility]) Start: 03-06-2024 End: 03-06-2024 ambulatory [facility] Start: 02-07-2024 End: 02-07-2024 Telemedicine consultation with patient Les Nogueirasanford RODRIGUEZ [facility] Comment on above: Pre-bariatric surger y nutrition evaluation (Primary Dx); Morbid obesity ([facility]) Start: 02-07-2024 End: 02-07-2024 ambulatory [facility] Start: 01-17-2024 End: 01-17-2024 Orders Only [facility] Comment on above: Preop testing (Prima ry Dx) Start: 01-17-2024 End: 01-17-2024 Patient encounter status Isajeronimo Jack ROSARIO [facility] Start: 01-02-2024 End: 01-02-2024 Admission to same day surgery center Les Diane RD [facility] Comment on above: Pre-bariatric surger y nutrition evaluation (Primary Dx); Morbid obesity ([facility]) Start: 12-05-2023 Patient encounter procedure Aby Davey [facility] Start: 12-05-2023 End: 12-05-2023 Admission to same day surgery center Les Diane RD [facility] Comment on above: Pre-bariatric surger y nutrition evaluation (Primary Dx); Morbid obesity ([facility]) Start: 11-08-2023 End: 11-08-2023 Admission to same day surgery center Les Diane RD [facility] Comment on above: Pre-bariatric surger y nutrition evaluation (Primary Dx); Morbid obesity ([facility]) Start: 10-10-2023 End: 10-10-2023 Office outpatient new 30 minutes Patel Alcaraz MD Work Phone: [facility] Comment on above: Preop testing (Prima ry Dx); LUCIANO on CPAP; History of pulmonary embolism; Class 2 severe obesity due to excess calories with serious comorbidity in adult, unspecified BMI ([facility]); Essential hypertension Start: 10-10-2023 End: 10-10-2023 Patient encounter status Patel Alcaraz MD Work Phone: [facility] Start: 10-09-2023 Telephone encounter [facility] Start: 10-09-2023 End: 10-09-2023 Admission to same day surgery center Les Diane RD [facility] Comment on above: Pre-bariatric surger y nutrition evaluation (Primary Dx); Morbid obesity ([facility]) Start: 09-27-2023 End: 09-27-[address] [facility] Start: 09-27-2023 End: 09-27-2023 Office outpatient visit 10 minutes Jalyn Vidal DO Work Phone: [facility] Comment on above: Mild intermittent as thma, unspecified whether complicated (Primary Dx); LUCIANO on CPAP Start: 09-26-2023 Chart abstracting Scanning Pro vider External [facility] Start: 09-06-2023 End: 09-06-2023 Admission to same day surgery center Les Diane RD [facility] Comment on above: Pre-bariatric surger y nutrition evaluation (Primary Dx); Morbid obesity ([facility]) Start: 09-06-2023 End: 09-06-[address] [facility] Start: 11-03-2022 End: 11-03-[address] BIN MORALES . Facility:[facility] Start: 10-29-2022 Encounter for other preprocedural examination DR BIN MORALES . [facility] Start: 10-29-2022 Encounter for preprocedural cardiovascular examination DR BIN MORALES . [facility] Start: 10-24-2022 End: 10-25-[address] BIN MORALES . Facility:[facility] Start: 10-24-2022 End: 10-25-2022 Encounter for other preprocedural examination DR BIN MORALES . Facility:[facility] Start: 09-26-2022 End: 09-27-[address] ASHLEY GRIER Facility:[facility] Start: 08-09-[address] BIN MORALES . Facili ty:[facility] Start: 08-04-[address] BIN MORALES . Facili ty:[facility] Start: 07-01-2022 End: 07-02-[address] ASHLEY GRIER Facility:[facility] Start: 06-27-2022 End: 06-27-[address] BIN MORALES . Facility:[facility] Start: 12-05-2021 End: 12-05-2021 Emergency department patient visit DUARTE SOSA [facility] Start: 12-05-2021 End: 12-05-2021 Emergency department patient visit Duarte Sosa MD Work Phone: [facility] Comment on above: Shortness of breath (Primary Dx) Start: 11-30-2021 End: 12-01-2021 Evaluation and management of inpatient MARILEE MEDINA [facility] Start: 11-30-2021 End: 12-01-2021 Evaluation and management of inpatient Gunjan Valentino DO Work Phone: [facility] Comment on above: Acute pulmonary embo lism, unspecified pulmonary embolism type, unspecified whether acute cor pulmonale present (HCC) (Primary Dx) Start: 11-26-2021 End: 11-29-2021 Evaluation and management of inpatient ISIDRO ABURTO [facility] Start: 11-26-2021 End: 11-29-2021 Evaluation and management of inpatient Marielos Torres MD Work Phone: [facility] Comment on above: Preeclampsia in post period (Primary Dx) Start: 11-25-2021 End: 11-26-2021 Emergency department patient visit TONIALOC GARIBAY [facility] Start: 11-25-2021 End: 11-26-2021 Emergency department patient visit Tonia Garibay DO Work Phone: [facility] Comment on above: Preeclampsia in post period (Primary Dx) Start: 11-21-[address] BIN MORALES . Facili ty:[facility] Start: 11-20-2021 End: 11-23-2021 Evaluation and management of inpatient DR CLARKE SCHUMACHER . Facility:[facility] Start: 11-17-2021 End: 11-17-[address] BIN MORALES . Facility:[facility] Start: 01-06-2019 End: 01-07-2019 Patient encounter procedure DEFAULT PHYSICIAN Facility:[facility] Procedures Date Procedure Procedure Detail Performing Clinician Start: 03-25-2025 BOX TEST Bin mcmillan DO Work Phone: Start: 03-20-2025 Urnls dip stick/tabl et rgnt non-auto w/o micrscp Bin Morales DO Work Phone: Start: 01-01-2025 Follow-up visit Follow-up AKBAR GUTHRIE Start: 10-10-2024 STATUS COVID-19/FLU Mar malena Plata MD Work Phone: Start: 06-12-2024 Urnls dip stick/tabl et rgnt non-auto w/o micrscp Riddhi Plata MD Work Phone: Start: 05-01-2024 AMB REFERRAL TO NUTR ITION SERVICES Tonia Manzo MD Work Phone: [...] current Helicobacter pylori infection. Test Performed by: [facility] [address] [place] [address] Shooting Gallery Operator: Jayce Daniels Ph.D.; CLIA# [id number] Performed By: #### H A1C, FEPR, 33428-5, 3016-3, 2284-8, 2132-9, 61029-5 #### [facility] ([id number]) [address] [place] [address], [address] [place] [address] #### [id number] #### [facility] ([id number]) [address] [place] [address], [place] [address] Start: 03-17-2024 Ecg routine ecg w/le ast 12 lds w/i&r Osiris Venegas MD Work Phone: Start: 10-10-2023 Ecg routine ecg w/le ast 12 lds w/i&r Theodora Early MD Work Phone: Start: 12-05-2021 Ecg routine ecg w/le ast 12 lds w/i&r Tonia Wolfe PA-C Start: 12-05-2021 Basic metabolic pane l calcium total Tonia Wolfe PA-C Start: 12-05-2021 Radiologic exam ches t single view Tonia Wolfe PA-C Start: 12-01-2021 Echo tthrc r-t 2d w/wom-mode compl spec&colr d Maira Dave [employer] Work Phone: Start: 12-01-2021 ANTI-XA, UNFRACTIONA KATJA HEPARIN Timothy Hill [employer] Work Phone: Start: 12-01-2021 End: 12-01-2021 Assay of magnesium Nevaeh Benavidez [place] [employer] Work Phone: Start: 12-01-2021 Lipid panel Nevaeh oliver [facility] [employer] CASE [employer] Work Phone: Start: 12-01-2021 Blood count complete automated Nevaeh Reema [place] [employer] Work Phone: Start: 11-30-2021 Ct thorax w/contrast material Bandar Vaughan [employer] Work Phone: Start: 11-30-2021 Assay of troponin quantitative Bandar Vaughan [employer] Work Phone: Start: 11-30-2021 Urinalysis microscopic only Bandar Vaughan [employer] Work Phone: Start: 11-30-2021 Urnls dip stick/tabl et rgnt auto w/o microscopy Bandar Vaughan [employer] Work Phone: Start: 11-30-2021 Radiologic exam ches t single view Bandar Vaughan APRN - CASE CHECKER Work Phone: Start: 11-30-2021 End: 11-30-2021 Lactate dehydrogenase ldh Bandar Santiago CASE CHECKER Work Phone: Start: 11-30-2021 Ecg routine ecg w/le ast 12 lds w/i&r Bandar Vaughan APRN - CASE CHECKER Work Phone: Start: 11-26-2021 Ct thorax w/contrast material Yessi Milton DO Work Phone: Start: 11-26-2021 Comprehensive metabo lic panel Yessi Milton DO Work Phone: Start: 11-26-2021 COVID-19, RAPID Tonia Garibay DO Work Phone: Start: 11-25-2021 End: 11-25-2021 Basic metabolic panel calcium total Tonia Garibay DO Work Phone: Start: 11-25-2021 Hepatic function panel Tonia Garibay DO Work Phone: Start: 11-25-2021 Urinalysis microscopic only Tonai Garibay DO Work Phone: Start: 11-25-2021 Urnls [...] Screening for malign ant neoplasm of cervix [facility] Start: 01-01-2026 Adult BMI Screening Adult BMI Screen [facility] Start: 01-01-2026 Tobacco Screening Tobacco Screening [facility] Start: 06-04-2025 Adult BMI Screening Adult BMI Screen ing [facility] Start: 05-11-2025 Influenza vaccination P [facility] Start: 05-01-2025 Adult BMI Follow Up Plan Adult BMI F ollow Up Plan [facility] Start: 05-01-2025 Adult BMI Screening Adult BMI Screen ing [facility] Start: 05-01-2025 Tobacco Screening Tobacco Screening [facility] Start: 04-24-2025 Adult BMI Screening Adult BMI Screen ing [facility] Start: 04-23-2025 Depression Screening Depression Scre ening [facility] Start: 04-23-2025 Tobacco Screening Tobacco Screening [facility] Start: 04-23-2025 End: 04-23-2025 Patient encounter procedure 04/23/2025 8:30 AM EDT Office Visit [facility] [address] [facility] [facility] [address] [place] [phone] Tonia Manzo MD [address] [facility], [address] [address] [facility] Start: 04-20-2025 End: 04-20-2025 Patient encounter procedure 04/20/2025 9:10 AM EDT Routine [facility] [address] [facility] [place] [address] Bin Morales, [address] [facility] [place], [place] [id number] [facility] Start: 04-15-2025 Adult BMI Screening Adult BMI Screen ing [facility] Start: 04-15-2025 Tobacco Screening Tobacco Screening [facility] Start: 04-10-2025 End: 04-10-2026 Calcium [Mass/volume] in Serum or Plasma Calcium Lab Routine History of Bonnie-en-Y gastric bypass Postsurgical malabsorption Malnutrition following gastrointestinal surgery Expected: 04/10/2025 (Approximate), Expires: 04/10/2026 [facility] Work Phone: Comment on above: Expected: 04/10/2025 (Approximate), Expires: 04/10/2026 Start: 04-10-2025 End: 04-10-2026 CBC W Auto Differential panel - Blood CBC auto differential Lab Routine History of Bonnie-en-Y gastric bypass Postsurgical malabsorption Malnutrition following gastrointestinal surgery Expected: 04/10/2025 (Approximate), Expires: 04/10/2026 [facility] Comment on above: Expected: 04/10/2025 (Approximate), Expires: 04/10/2026 Start: 04-10-2025 End: 04-10-2026 Copper, S Copper, S Lab Routine History of Bonnie-en-Y gastric bypass Postsurgical malabsorption Malnutrition following gastrointestinal surgery Expected: 04/10/2025 (Approximate), Expires: 04/10/2026 [facility] Comment on above: Expected: 04/10/2025 (Approximate), Expires: 04/10/2026 Start: 04-10-2025 End: 04-10-2026 Cyanocobalamin vitamin b-12 Vitamin B12 Lab Routine History of Bonnie-en-Y gastric bypass Postsurgical malabsorption Malnutrition following gastrointestinal surgery Expected: 04/10/2025 (Approximate), Expires: 04/10/2026 [facility] Comment on above: Expected: 04/10/2025 (Approximate), Expires: 04/10/2026 Start: 04-10-2025 End: 04-10-2026 Ferritin [Mass/volume] in Serum or Plasma Ferritin Lab Routine History of Bonnie-en-Y gastric bypass Postsurgical malabsorption Malnutrition following gastrointestinal surgery History of anemia Expected: 04/10/2025 (Approximate), Expires: 04/10/2026 [facility] Comment on above: Expected: 04/10/2025 (Approximate), Expires: 04/10/2026 Start: 04-10-2025 End: 04-10-2026 Folate Folate Lab Routine History of Bonnie-en-Y gastric bypass Postsurgical malabsorption Malnutrition following gastrointestinal surgery Expected: 04/10/2025 (Approximate), Expires: 04/10/2026 [facility] Comment on above: Expected: 04/10/2025 (Approximate), Expires: 04/10/2026 Start: 04-10-2025 End: 04-10-2026 Iron and TIBC Iron and TIBC Lab Routine History of Bonnie-en-Y gastric bypass Postsurgical malabsorption Malnutrition following gastrointestinal surgery History of anemia Expected: 04/10/2025 (Approximate), Expires: 04/10/2026 [facility] Comment on above: Expected: 04/10/2025 (Approximate), Expires: 04/10/2026 Start: 04-10-2025 End: 04-10-2026 Liver panel Liver panel Lab Routine History of Bonnie-en-Y gastric bypass Postsurgical malabsorption Malnutrition following gastrointestinal surgery Expected: 04/10/2025 (Approximate), Expires: 04/10/2026 [facility] Comment on above: Expected: 04/10/2025 (Approximate), Expires: 04/10/2026 Start: 04-10-2025 End: 04-10-2026 Parathyroid Hormone, intact Parathyroid Hormone, intact Lab Routine History of Bonnie-en-Y gastric bypass Postsurgical malabsorption Malnutrition following gastrointestinal surgery Expected: 04/10/2025 (Approximate), Expires: 04/10/2026 [facility] Comment on above: Expected: 04/10/2025 (Approximate), Expires: 04/10/2026 Start: 04-10-2025 End: 04-10-2026 Thiamin (Vitamin B1), WB Thiamin (Vitamin B1), WB Lab Routine History of Bonnie-en-Y gastric bypass Postsurgical malabsorption Malnutrition following gastrointestinal surgery Expected: 04/10/2025 (Approximate), Expires: 04/10/2026 [facility] Comment on above: Expected: 04/10/2025 (Approximate), Expires: 04/10/2026 Start: 04-10-2025 End: 04-10-2026 Vitamin A (Retinol) Vitamin A (Retinol) Lab Routine History of Bonnie-en-Y gastric bypass Postsurgical malabsorption Malnutrition following gastrointestinal surgery Expected: 04/10/2025 (Approximate), Expires: 04/10/2026 [facility] Comment on above: Expected: 04/10/2025 (Approximate), Expires: 04/10/2026 Start: 04-10-2025 End: 04-10-2026 Vitamin D 25 hydroxy Vitamin D 25 hydroxy Lab Routine History of Bonnie-en-Y gastric bypass Postsurgical malabsorption Malnutrition following gastrointestinal surgery Expected: 04/10/2025 (Approximate), Expires: 04/10/2026 [facility] Comment on above: Expected: 04/10/2025 (Approximate), Expires: 04/10/2026 Start: 04-10-2025 End: 04-10-2026 Zinc, Serum Zinc, Serum Lab Routine History of Bonnie-en-Y gastric bypass Postsurgical malabsorption Malnutrition following gastrointestinal surgery Expected: 04/10/2025 (Approximate), Expires: 04/10/2026 [facility] Comment on above: Expected: 04/10/2025 (Approximate), Expires: 04/10/2026 Start: 03-20-2025 End: 03-20-2026 ABO/Rh ABO/Rh Lab Routine Missed menses , unspecified gestational age ([facility]) Expected: 03/20/2025 (Approximate), Expires: 03/20/2026 [facility] Comment on above: Expected: 03/20/2025 (Approximate), Expires: 03/20/2026 Start: 03-20-2025 End: 03-20-2026 Blood type and Indirect antibody screen panel - Blood Type and screen Lab Routine Missed menses , unspecified gestational age ([facility] Expected: 03/20/2025 (Approximate), Expires: 03/20/2026 [facility] Work Phone: Comment on above: Expected: 03/20/2025 (Approximate), Expires: 03/20/2026 Start: 03-20-2025 End: 03-20-2026 Drugs of abuse panel - Urine by Screen method Rapid drug screen, urine Lab Routine , unspecified gestational age ([facility]) Encounter for supervision of normal first in first trimester ([facility]) Expected: 03/20/2025 (Approximate), Expires: 03/20/2026 [facility] Comment on above: Expected: 03/20/2025 (Approximate), Expires: 03/20/2026 Start: 03-17-2025 Adult BMI Screening Adult BMI Screen ing [facility] Start: 03-17-2025 Tobacco Screening Tobacco Screening [facility] Start: 03-09-2025 Influenza vaccination Influenza Vacc ine (#1) [facility] Comment on above: Postponed from 05/11 (Patient Refused) Start: 03-06-2025 Adult BMI Screening Adult BMI Screen ing [facility] Start: 02-06-2025 Adult BMI Screening Adult BMI Screen ing [facility] Start: 01-01-2025 Adult BMI Screening Adult BMI Screen ing [facility] Start: 12-08-2024 Tobacco Screening Tobacco Screening [facility] Start: 12-04-2024 Adult BMI Screening Adult BMI Screen ing [facility] Start: 11-13-2024 End: 11-13-2024 Patient encounter procedure 11/13/2024 11:00 AM EST Office Visit [facility] [address] [place] [phone] Tonia Manzo MD [address] [place] [address] May Dunlap, [employer]CASE [employer]ER [address] [place] [address] [facility] Start: 11-07-2024 Adult BMI Screening Adult BMI Screen ing [facility] Start: 10-30-2024 End: 10-30-2025 CBC W Auto Differential panel - Blood CBC auto differential Lab Routine Malnutrition following gastrointestinal surgery Postsurgical malabsorption H/O gastric bypass History of anemia Expected: 10/30/2024, Expires: 10/30/2025 [facility] Work Phone: Comment on above: Expected: 10/30/2024 , Expires: 10/30/2025 Start: 10-30-2024 End: 10-30-2025 Cyanocobalamin vitamin b-12 Vitamin B12 Lab Routine Malnutrition following gastrointestinal surgery Postsurgical malabsorption H/O gastric bypass History of anemia Expected: 10/30/2024, Expires: 10/30/2025 [facility] Comment on above: Expected: 10/30/2024 , Expires: 10/30/2025 Start: 10-30-2024 End: 10-30-2025 Ferritin [Mass/volume] in Serum or Plasma Ferritin Lab Routine Malnutrition following gastrointestinal surgery Postsurgical malabsorption H/O gastric bypass History of anemia Expected: 10/30/2024, Expires: 10/30/2025 [facility] Comment on above: Expected: 10/30/2024 , Expires: 10/30/2025 Start: 10-30-2024 End: 10-30-2025 Folate Folate Lab Routine Malnutrition following gastrointestinal surgery Postsurgical malabsorption H/O gastric bypass History of anemia Expected: 10/30/2024, Expires: 10/30/2025 [facility] Comment on above: Expected: 10/30/2024 , Expires: 10/30/2025 Start: 10-30-2024 End: 10-30-2025 Iron and TIBC Iron and TIBC Lab Routine Malnutrition following gastrointestinal surgery Postsurgical malabsorption H/O gastric bypass History of anemia Expected: 10/30/2024, Expires: 10/30/2025 [facility] Comment on above: Expected: 10/30/2024 , Expires: 10/30/2025 Start: 10-30-2024 End: 10-30-2025 Liver panel Liver panel Lab Routine Malnutrition following gastrointestinal surgery Postsurgical malabsorption H/O gastric bypass History of anemia Expected: 10/30/2024, Expires: 10/30/2025 [facility] Comment on above: Expected: 10/30/2024 , Expires: 10/30/2025 Start: 10-30-2024 End: 10-30-2025 Thiamin (Vitamin B1), WB Thiamin (Vitamin B1), WB Lab Routine Malnutrition following gastrointestinal surgery Postsurgical malabsorption H/O gastric bypass History of anemia Expected: 10/30/2024, Expires: 10/30/2025 [facility] Comment on above: Expected: 10/30/2024 , Expires: 10/30/2025 Start: 10-30-2024 End: 10-30-2025 Vitamin D 25 hydroxy Vitamin D 25 hydroxy Lab Routine Malnutrition following gastrointestinal surgery Postsurgical malabsorption H/O gastric bypass History of anemia Expected: 10/30/2024, Expires: 10/30/2025 [facility] Comment on above: Expected: 10/30/2024 , Expires: 10/30/2025 Start: 10-26-2024 Tobacco Screening Tobacco Screening [facility] Start: 10-10-2024 End: 10-10-2024 Patient encounter procedure 10/10/2024 3:40 PM EST Office Visit [facility] [address] [place] [phone] Riddhi Plata MD [address] [place] [address] Arrived [facility] Comment on above: Arrived Start: 10-10-2024 Adult BMI Screening Adult BMI Screen ing [facility] Start: 10-10-2024 Tobacco Screening Tobacco Screening [facility] Start: 09-27-2024 Adult BMI Screening Adult BMI Screen ing [facility] Start: 09-27-2024 Tobacco Screening Tobacco Screening [facility] Start: 09-06-2024 Adult BMI Screening Adult BMI Screen ing [facility] Start: 08-25-2024 End: 08-25-2025 25-hydroxyvitamin D3 [Mass/volume] in Serum or Plasma Vitamin D 25 hydroxy Lab Routine Bariatric surgery status Vitamin D deficiency Expected: 08/25/2024 (Approximate), Expires: 08/25/2025 [facility] Comment on above: Expected: 08/25/2024 (Approximate), Expires: 08/25/2025 Start: 08-25-2024 End: 08-25-2025 CBC W Auto Differential panel - Blood CBC and differential Lab Routine Bariatric surgery status Vitamin D deficiency Iron deficiency anemia, unspecified iron deficiency anemia type Expected: 08/25/2024 (Approximate), Expires: 08/25/2025 [facility] Comment on above: Expected: 08/25/2024 (Approximate), Expires: 08/25/2025 Start: 08-25-2024 End: 08-25-2025 Cobalamin (Vitamin B12) [Mass/volume] in Serum or Plasma Vitamin B12 Lab Routine Bariatric surgery status Vitamin D deficiency Iron deficiency anemia, unspecified iron deficiency anemia type Expected: 08/25/2024 (Approximate), Expires: 08/25/2025 [facility] Work Phone: Comment on above: Expected: 08/25/2024 (Approximate), Expires: 08/25/2025 Start: 08-25-2024 End: 08-25-2025 Iron + transferrin + TIBC Iron + transferrin + TIBC Lab Routine Bariatric surgery status Vitamin D deficiency Iron deficiency anemia, unspecified iron deficiency anemia type Expected: 08/25/2024 (Approximate), Expires: 08/25/2025 [facility] Comment on above: Expected: 08/25/2024 (Approximate), Expires: 08/25/2025 Start: 08-25-2024 End: 08-25-2024 Patient encounter procedure 08/25/2024 8:20 AM EST Office Visit [facility] [address] [place] [phone] Riddhi Plata MD [address] [place] [address] Arrived [facility] Comment on above: Arrived Start: 08-08-2024 Adult BMI Screening Adult BMI Screen [facility] Start: 07-31-2024 End: 04-30-2025 CBC W Auto Differential panel - Blood CBC auto differential Lab Routine H/O gastric bypass Postoperative malabsorption Malnutrition following gastrointestinal surgery Expected: 07/31/2024 (Approximate), Expires: 04/30/2025 [employer] Work Phone: Comment on above: Expected: 07/31/2024 (Approximate), Expires: 04/30/2025 Start: 07-31-2024 End: 04-30-2025 Cyanocobalamin vitamin b-12 Vitamin B12 Lab Routine H/O gastric bypass Postoperative malabsorption Malnutrition following gastrointestinal surgery Expected: 07/31/2024 (Approximate), Expires: 04/30/2025 [facility] Comment on above: Expected: 07/31/2024 (Approximate), Expires: 04/30/2025 Start: 07-31-2024 End: 04-30-2025 Folate Folate Lab Routine H/O gastric bypass Postoperative malabsorption Malnutrition following gastrointestinal surgery Expected: 07/31/2024 (Approximate), Expires: 04/30/2025 [facility] Comment on above: Expected: 07/31/2024 (Approximate), Expires: 04/30/2025 Start: 07-31-2024 End: 04-30-2025 Iron [Mass/volume] in Serum or Plasma Iron Lab Routine H/O gastric bypass Postoperative malabsorption Malnutrition following gastrointestinal surgery Expected: 07/31/2024 (Approximate), Expires: 04/30/2025 [facility] Comment on above: Expected: 07/31/2024 (Approximate), Expires: 04/30/2025 Start: 07-31-2024 End: 04-30-2025 Liver panel Liver panel Lab Routine H/O gastric bypass Postoperative malabsorption Malnutrition following gastrointestinal surgery Expected: 07/31/2024 (Approximate), Expires: 04/30/2025 [facility] Comment on above: Expected: 07/31/2024 (Approximate), Expires: 04/30/2025 Start: 07-31-2024 End: 04-30-2025 Thiamin (Vitamin B1), WB Thiamin (Vitamin B1), WB Lab Routine H/O gastric bypass Postoperative malabsorption Malnutrition following gastrointestinal surgery Expected: 07/31/2024 (Approximate), Expires: 04/30/2025 [facility] Comment on above: Expected: 07/31/2024 (Approximate), Expires: 04/30/2025 Start: 07-31-2024 End: 04-30-2025 Vitamin D 25 hydroxy Vitamin D 25 hydroxy Lab Routine H/O gastric bypass Postoperative malabsorption Malnutrition following gastrointestinal surgery Expected: 07/31/2024 (Approximate), Expires: 04/30/2025 [facility] Comment on above: Expected: 07/31/2024 (Approximate), Expires: 04/30/2025 Start: 07-24-2024 End: 07-24-2024 Patient encounter procedure 07/24/2024 11:30 AM EST Office Visit [facility] General [facility]-B[facility] [address] [place] [address] Tonia Manzo MD [address] [address] May Dunlap, TRAVEL COUNSELOR [employer]-CASE CHECKER [address] [place] [address] [facility] General [facility] Start: 07-19-2024 Tobacco Screening Tobacco Screening [facility] Start: 06-12-2024 End: 06-12-2025 Bacteria identified in Urine by Culture Urine culture (clean catch) Microbiology Routine Dysuria Expected: 06/12/2024 (Approximate), Expires: 06/12/2025 [facility] Work Phone: Comment on above: Expected: 06/12/2024 (Approximate), Expires: 06/12/2025 Start: 06-12-2024 End: 06-12-2025 Urinalysis complete panel - Urine Urinalysis with reflex microscopic (clean catch) Lab Routine Dysuria Expected: 06/12/2024 (Approximate), Expires: 06/12/2025 [facility] Comment on above: Expected: 06/12/2024 (Approximate), Expires: 06/12/2025 Start: 06-04-2024 End: 06-04-2024 ambulatory 06/04/2024 10:30 AM EDT Support Visit [facility] [address] [place] [address] [phone] Tonia Manzo MD [address] [facility] Start: 06-02-2024 End: 06-02-2024 ambulatory 06/02/2024 1:00 PM EDT Support Visit [facility] [address] [place] [address] [phone] Tonia Manzo MD [address] [facility], [address] [address] Belem Pleitez LD [facility] Start: 05-11-2024 Influenza vaccination [facility] Start: 05-01-2024 End: 05-01-2024 Patient encounter procedure 05/01/2024 1:30 PM EDT Office Visit [facility] [address] [place] [address] Tonia Manzo MD [address] [address] [facility] Start: 05-01-2024 End: 05-01-2024 ambulatory 05/01/2024 1:00 PM EDT Support Visit [facility] [address] [place] [phone] Les Diane RD [facility] Start: 04-23-2024 End: 04-23-2024 Admission to same day surgery center 04/23/2024 9:30 AM EDT - 04/23/2024 11:30 AM EDT Surgery [address] [phone] Tonia Manzo MD [address] [address] [facility] [87134 (CPT )] [facility] Comment on above: [facility]IE [facility] Y [19091 (CPT )] Start: 04-23-2024 End: 04-23-2024 Laps gstr rstcv px w/byp bonnie-en-y limb <150 cm [facility] MORBID OBESITY/HYPERTENSION 04/23/2024 9:30 AM EDT [facility] Start: 04-23-2024 Subsequent hospital visit by physician 04/23/2024 9:30 AM EDT Hospital Encounter [facility] Surgery [address] [place] [address] [phone] Tonia Manzo MD [address] [facility], [facility] [address] [place], [place] [phone] [facility] - [facility] Start: 04-15-2024 End: 04-15-2025 XR Chest PA and Lateral [facility] Work Phone: Comment on above: Expected: 04/15/2024 (Approximate), Expires: 04/15/2025 Start: 03-27-2024 End: 2025 Nicotine and Metabolites, Random, Urine Nicotine and Metabolites, Random, Urine Lab Routine Unable to assess patient's smoking status within the last 12 months Expected: 03/27/2024, Expires: 2025 [facility] Work Phone: Comment on above: Expected: 03/27/2024 , Expires: 2025 Start: 03-27-2024 End: 03-27-2025 US Abdomen limited Ultrasound abdomen limited Imaging Routine Chronic RUQ pain Expected: 03/27/2024, Expires: 03/27/2025 [facility] Comment on above: Expected: 03/27/2024 , Expires: 03/27/2025 Start: 03-27-2024 End: 03-27-2024 Patient encounter procedure 03/27/2024 1:30 PM EDT Office Visit [facility] General Surgery-Bariatric [facility] [place] [address] Tonia Manzo MD [address] [facility] [address] [place] [address] [facility] General Surgery-B[facility] Start: 03-23-2024 Adult BMI Follow Up Plan Adult BMI F ollow Up Plan [facility] Start: 03-17-2024 End: 01-16-2025 Cyanocobalamin vitamin b-12 Vitamin B12 Lab Routine Preop testing Expected: 03/17/2024, Expires: 01/16/2025 [facility] Comment on above: Expected: 03/17/2024 , Expires: 01/16/2025 Start: 03-17-2024 End: 01-16-2025 Folate Folate Lab Routine Preop testing Expected: 03/17/2024, Expires: 01/16/2025 [facility] Comment on above: Expected: 03/17/2024 , Expires: 01/16/2025 Start: 03-17-2024 End: 01-16-2025 H Pylori Breath Adult H Pylori Breath Adult Lab Routine Preop testing Expected: 03/17/2024, Expires: 01/16/2025 [facility] Comment on above: Expected: 03/17/2024 , Expires: 01/16/2025 Start: 03-17-2024 End: 01-16-2025 Hemoglobin A1c/Hemoglobin.total in Blood Hemoglobin A1c Lab Routine Preop testing Expected: 03/17/2024, Expires: 01/16/2025 [facility] Work Phone: Comment on above: Expected: 03/17/2024 , Expires: 01/16/2025 Start: 03-17-2024 End: 01-16-2025 Iron and TIBC Iron and TIBC Lab Routine Preop testing Expected: 03/17/2024, Expires: 01/16/2025 [facility] Comment on above: Expected: 03/17/2024 , Expires: 01/16/2025 Start: 03-17-2024 End: 01-16-2025 Lipid 1996 panel - Serum or Plasma Lipid profile Lab Routine Preop testing Expected: 03/17/2024, Expires: 01/16/2025 [facility] Comment on above: Expected: 03/17/2024 , Expires: 01/16/2025 Start: 03-17-2024 End: 01-16-2025 Thyrotropin [Units/volume] in Serum or Plasma TSH Lab Routine Preop testing Expected: 03/17/2024, Expires: 01/16/2025 [facility] Comment on above: Expected: 03/17/2024 , Expires: 01/16/2025 Start: 03-17-2024 End: 01-16-2025 Vitamin D 25 hydroxy Vitamin D 25 hydroxy Lab Routine Preop testing Expected: 03/17/2024, Expires: 01/16/2025 [facility] Comment on above: Expected: 03/17/2024 , Expires: 01/16/2025 Start: 03-17-2024 End: 03-17-2024 Patient encounter procedure [facility] Start: 03-06-2024 End: 03-06-2024 Telemedicine consultation with patient 03/06/2024 1:30 PM EDT Telemedicine [facility] [address] [place] [address] [facility] Start: 02-07-2024 End: 02-07-2024 ambulatory 02/07/2024 1:30 PM EDT Support Visit [facility] [address] [place] [address], [place] [phone] [facility] Start: 01-02-2024 End: 01-02-2024 ambulatory 01/02/2024 12:30 PM EDT Support Visit [facility] [address] [place] [address] [facility] Start: 12-12-2023 End: 12-12-2023 Patient encounter procedure 12/12/2023 1:00 PM EDT Appointment [facility] - Radiology [address] [place] [address] [facility] - Radiology Start: 12-05-2023 End: 12-05-2023 ambulatory 12/05/2023 1:30 PM EDT Support Visit [facility] [address] [place] [address] [facility] Start: 11-21-2023 End: 11-21-2023 Patient encounter procedure 11/21/2023 1:00 PM EDT Appointment [facility] - Radiology [address] [facility] [place] [address] Tonia Manzo MD [address] [facility], [place] [address] [place] [address] [facility] - Radiology Start: 11-08-2023 End: 11-08-2023 ambulatory 11/08/2023 11:30 AM EST Support Visit [facility] [address] [place] [address] [facility] Start: 10-10-2023 End: 10-10-2023 Patient encounter procedure 10/10/2023 8:15 AM EST Office Visit [facility] [address] [facility] [address] [place] [phone] Patel Alcaraz MD [address] [place], [place] [phone] Theodora Early MD [address] [place] [address] [facility] Start: 10-09-2023 End: 10-09-2023 ambulatory 10/09/2023 11:00 AM EST Support Visit [facility] [address] [place] [phone] [facility] Start: 09-27-2023 End: 09-27-2023 Patient encounter procedure 09/27/2023 11:45 AM EST Office Visit [facility] Pul[facility]/Sleep [facility] [place] [place] [address] Jalyn Vidal DO [address] [address] [facility] Start: 05-11-2023 Influenza vaccination Influenza Vacc ine [facility] Start: 12-05-2022 Creatinine measurement Creatinine mo [facility] Start: 12-05-2022 Potassium monitoring Potassium monit [facility] Start: 12-01-2022 Creatinine measurement Creatinine mo [facility] Start: 12-01-2022 Potassium monitoring Potassium monit [facility] Start: 11-29-2022 Depression Monitoring Depression Mon [facility] Start: 11-26-2022 Creatinine measurement Creatinine mo [facility] Start: 11-26-2022 Potassium monitoring Potassium monit [facility] Start: 12-09-2021 End: 12-09-2021 Patient encounter procedure 12/09/2021 Office Visit Obstetrics and Gynecology Brandie Moore DO [address] [place] [address] [facility] Orthopedic Physical Therapist [place] Start: 11-30-2021 End: 11-30-2021 Patient encounter procedure 11/30/2021 Office Visit Family Medicine Rochelle Louis MD [address] [facility] [address] [place] [phone] [facility] Physicians [facility] Start: 11-30-2021 End: 11-30-2021 Telemedicine consultation with patient 11/30/2021 Telemedicine Family Medicine Rochelle Louis MD [address] [facility] [address] [place] [address] [facility] Start: 05-11-2021 Influenza vaccination Flu vaccine (# 1) [facility] Start: 12-01-2018 DTaP,Tdap and Td Vaccines (7 - Td or Tdap) DTaP,Tdap and Td Vaccines (7 - Td or Tdap) [facility] Start: 2015 Screening for malign ant neoplasm of cervix Pap smear [facility] Start: 2013 DTaP/Tdap/Td vaccine (1 - Tdap) DTaP/Tdap/Td vaccine (1 - Tdap) [facility] Start: 2009 HIV screening HIV screen [facility] Start: 2006 Depression Monitoring Depression Mon [facility] Start: 2006 Depression Screen Depression Screen [facility] Start: 2006 Depression Screening Depression Scre [facility] Start: 1999 COVID-19 Vaccine (1) COVID-19 Vaccin e (1) [facility] Start: 1995 Varicella vaccine (1 of 2 - 2-dose childhood series) Varicella vaccine (1 of 2 - 2-dose childhood series) [facility] Start: 1994 Hepatitis C screening Hepatitis C sc reen [facility] End: 12-07-2021 Anti-Xa, Unfractionated Heparin Anti-Xa, Unfractionated Heparin Lab Timed Every 6 Hours (Lab) for 7 Days starting 12/01/2021 until 12/07/2021 [facility] Phone: Comment on above: Every 6 Hours (Lab) for 7 Days starting 12/01/2021 until 12/07/2021 Bacteria identified in Urine by Culture Urine culture Microbiology Routine Missed menses Ordered: 03/20/2025 [employer] Comment on above: Ordered: 03/20/2025 CBC panel - Blood by Automated count CBC Lab Routine Every Other Day until discontinued starting 12/02/2021 [facility] Phone: Comment on above: Every Other Day unti l discontinued starting 12/02/2021 CBC W Auto Different ial panel - Blood CBC and differential Lab Routine Missed menses , unspecified gestational age ([facility]) Ordered: 03/20/2025 [employer] Comment on above: Ordered: 03/20/2025 EKG 12 lead EKG 12 lead ECG Routine As Needed until discontinued starting 11/30/2021 [facility] Phone: Comment on above: As Needed until disc ontinued starting 11/30/2021 EKG 12 Lead EKG 12 Lead ECG STAT 11/30/2021 7:35 PM EDT [facility] Phone: EKG 12 Lead EKG 12 Lead ECG STAT 12/05/2021 4:00 PM EDT [facility] Glucose [Mass/volume ] in Serum or Plasma POCT Glucose Point of Care Testing Routine 4X Daily (AC & HS) until discontinued starting 12/01/2021 [facility] Phone: Comment on above: 4X Daily (AC & HS) u ntil discontinued starting 12/01/2021 Hemoglobin A1c/Hemoglobin.total in Blood Hemoglobin A1c Lab Routine Missed menses , unspecified gestational age ([facility]) Ordered: 03/20/2025 [facility] Comment on above: Ordered: 03/20/2025 Hepatitis B virus surface Ag [Presence] in Serum or Plasma by Immunoassay Hepatitis B surface antigen Lab Routine Missed menses , unspecified gestational age ([facility]) Or[facility]: 03/20/2025 [facility] Comment on above: Ordered: 03/20/2025 Hepatitis C virus Ab [Presence] in Serum or Plasma by Immunoassay Hepatitis C antibody Lab Routine Missed menses , unspecified gestational age ([facility]) Ordered: 03/20/2025 [facility] Comment on above: Ordered: 03/20/2025 HIV-1/HIV-2 antigen/antibody combination immunoassay HIV-1 and HIV-2 antibodies Lab Routine Missed menses , unspecified gestational age ([facility]) Ordered: 03/20/2025 [facility] Comment on above: Ordered: 03/20/2025 End: 12-01-2021 Intermittent pulse oximetry Pulse Oximetry Spot Check Respiratory Care Routine One Time for 1 Occurrences starting 12/01/2021 until 12/01/2021 [facility]: Comment on above: One Time for 1 Occur rences starting 12/01/2021 until 12/01/2021 Nicotine and Metabol ites panel [Mass/volume] - Urine Nicotine and Metabolites, Random, Urine Lab Routine Unable to assess patient's smoking status within the last 12 months 03/27/2024 6:08 PM EDT [employer] Oxygen therapy [[facility] Data Set] Initiate Oxygen Therapy Protocol Respiratory Care Routine As Needed until discontinued starting 11/30/2021 [employer] Phone: Comment on above: As Needed until disc ontinued starting 11/30/2021 POCT EKG POCT EKG ECG Rou octavio Preop testing 10/10/2023 [employer] Phone: POCT EKG POCT EKG ECG Rou octavio Preop cardiovascular exam 03/17/2024 [employer] Phone: Protein Electrophore sis, Urine Protein Electrophoresis, Urine Lab STAT 11/30/2021 9:20 PM EDT [facility] Work Phone: Reagin Ab [Presence] in Serum by RPR RPR Lab Routine Missed menses , unspecified gestational age ([facility]) Ordered: 03/20/2025 [facility] Comment on above: Ordered: 03/20/2025 Rubella antibody, IgG Rubella an tibody, IgG Lab Routine Missed menses , unspecified gestational age ([facility]) Ordered: 03/20/2025 [facility] Comment on above: Ordered: 03/20/2025 Immunizations Immunization Date Immunization Notes Care Provider Fa cili 08-11-2019 influenza, injectabl e, quadrivalent, preservative free Riddhi Plata MD Work Phone: [facility] 08-11-2019 influenza virus vacc ine, unspecified formulation Les Diane [facility] 02-08-2012 hepatitis A vaccine, pediatric/adolescent dosage, 2 dose schedule Riddhi Plata MD Work Phone: [facility] 07-11-2011 influenza, seasonal, injectable Riddhi Plata MD Work Phone: [facility] 06-08-2009 human papilloma viru s vaccine, quadrivalent Riddhi Plata MD Work Phone: [facility] 02-05-2009 hepatitis A vaccine, pediatric/adolescent dosage, 2 dose schedule Riddhi Plata MD Work Phone: [facility] 02-05-2009 human papilloma viru s vaccine, quadrivalent Riddhi Plata MD Work Phone: [facility] 12-01-2008 hepatitis A vaccine, pediatric/adolescent dosage, 2 dose schedule Riddhi Plata MD Work Phone: [facility] 12-01-2008 human papilloma viru s vaccine, quadrivalent Riddhi Plata MD Work Phone: [facility] 12-01-2008 meningococcal polysaccharide (groups A, C, Y and W-135) diphtheria toxoid conjugate vaccine (MCV4P) Riddhi Plata MD Work Phone: [facility] 12-01-2008 tetanus toxoid, redu lanre diphtheria toxoid, and acellular pertussis vaccine, adsorbed Riddhi Plata MD Work Phone: [facility] 01-14-1999 diphtheria, tetanus toxoids and acellular pertussis vaccine, unspecified formulation Riddhi Plata MD Work Phone: [facility] 01-14-1999 measles, mumps and rubella virus vaccine Riddhi Plata MD Work Phone: [facility] 01-14-1999 poliovirus vaccine, unspecified formulation Riddhi Plata MD Work Phone: [facility] 10-23-1996 diphtheria, tetanus toxoids and acellular pertussis vaccine, unspecified formulation Riddhi Plata MD Work Phone: [facility] 10-23-1996 haemophilus influenz ae type b vaccine, conjugate unspecified formulation Riddhi Plata MD Work Phone: [facility] 01-17-1996 diphtheria, tetanus toxoids and acellular pertussis vaccine, unspecified formulation Riddhi Plata MD Work Phone: [facility] 01-17-1996 haemophilus influenz ae type b vaccine, conjugate unspecified formulation Riddhi Plata MD Work Phone: [facility] 01-17-1996 hepatitis B vaccine, pediatric or pediatric/adolescent dosage Riddhi Plata MD Work Phone: [facility] 01-17-1996 poliovirus vaccine, unspecified formulation Riddhi Plata MD Work Phone: [facility] 09-28-1995 diphtheria, tetanus toxoids and acellular pertussis vaccine, unspecified formulation Riddhi Plata MD Work Phone: [facility] 09-28-1995 haemophilus influenz ae type b vaccine, conjugate unspecified formulation Riddhi Plata MD Work Phone: [facility] 09-28-1995 hepatitis B vaccine, pediatric or pediatric/adolescent dosage Riddhi Plata MD Work Phone: [facility] 09-28-1995 poliovirus vaccine, unspecified formulation Riddhi Plata MD Work Phone: [facility] 03-28-1995 diphtheria, tetanus toxoids and acellular pertussis vaccine, unspecified formulation Riddhi Plata MD Work Phone: [facility] 03-28-1995 haemophilus influenz ae type b vaccine, conjugate unspecified formulation Riddhi Plata MD Work Phone: [facility] 03-28-1995 hepatitis B vaccine, pediatric or pediatric/adolescent dosage Riddhi Plata MD Work Phone: [facility] 03-28-1995 measles, mumps and rubella virus vaccine Riddhi Plata MD Work Phone: [facility] 03-28-1995 poliovirus vaccine, unspecified formulation Riddhi Plata MD Work Phone: [facility] Payers Date Payer Category Payer Private Health Insurance [id number] 2023 Managed Care Other (unspecified) [employer] [id number] 2023 Unknown [id number] 2023 Medicaid (Managed Care) [employer] [id number] 2021 Medicaid [id number] 2021 Medicaid [place] [employer] [id number] 2017 Unknown [id number] 2016 Unknown [id number] 1994 Unknown [id number] 2.16.840.1.586826.3.579.2. 647 1994 Unknown [id number] 2.16.840.1.250403.3.579.2. 177 1994 Unknown [id number] 2.16.840.1.699886.3.579.2. 177 1994 Unknown [id number] 2.16.840.1.466682.3.579.2. 177 1994 Unknown [id number] 2.16.840.1.448589.3.579.2. 175 1994 Unknown [id number] 2.16.840.1.461282.3.579.2. 593 1994 Unknown [id number] 2.16.840.1.332668.3.579.2. 593 1994 Unknown [id number] 2.16.840.1.749132.3.579.2. 593 1994 Unknown [id number] 2.16.840.1.236629.3.579.2. 593 1994 Unknown [id number] 2.16.840.1.185393.3.579.2. 593 1994 Unknown [id number] 2.16.840.1.742559.3.579.2. 59 1994 Unknown [id number] 2.16.840.1.781139.3.579.2. 59 1994 Unknown [id number] 2.16.840.1.439674.3.579.2. 59 1994 Unknown [id number] 2.16.840.1.388745.3.579.2. 59 1994 Unknown [id number] 2.16.840.1.644413.3.579.2. 59 1994 Unknown [id number] 2.16.840.1.595429.3.579.2. 1285 1994 Unknown [id number] 2.16.840.1.158923.3.579.2. 1285 1994 Unknown [id number] 2.16.840.1.053170.3.579.2. 1285 1994 Unknown [id number] 2.16.840.1.327250.3.579.2. 1285 1994 Unknown [id number] 2.16.840.1.422271.3.579.2. 1285 1994 Unknown [id number] 2.16.840.1.139141.3.579.2. 1285 1994 Unknown [id number] 2.16.840.1.747876.3.579.2. 1285 1994 Unknown [id number] 2.16.840.1.064761.3.579.2. 1285 1994 Unknown [id number] 2.16.840.1.176241.3.579.2. 1285 1994 Unknown [id number] 2.16.840.1.173536.3.579.2. 1285 1994 Unknown [id number] 2.16.840.1.007687.3.579.2. 1285 1994 Unknown [id number] 2.16.840.1.345159.3.579.2. 1285 1994 Unknown [id number] 2.16.840.1.041331.3.579.2. 1285 1994 Unknown [id number] 2.16.840.1.364923.3.579.2. 1285 1994 Unknown [id number] 2.16.840.1.226070.3.579.2. 1285 1994 Unknown [id number] 2.16.840.1.995062.3.579.2. 1285 1994 Unknown [id number] 2.16840.1.502092.3.579.2. 1285 1994 Unknown [id number] 2.16840.1.039032.3.579.2. 1285 1994 Unknown [id number] 2.16.840.1.350315.3.579.2. 1285 1994 Unknown [id number] 2.16.840.1.493828.3.579.2. 1285 1994 Unknown [id number] 2.16840.1.527442.3.579.2. 1285 1994 Unknown [id number] 2.16840.1.279096.3.579.2. 1258 1994 Unknown [id number] 2.16.840.1.449865.3.579.2. 1258 1994 Unknown [id number] 2.16.840.1.118441.3.579.2. 1258 1994 Unknown [id number] 2.16.840.1.647465.3.579.2. 1258 1994 Unknown [id number] 2.16.840.1.714541.3.579.2. 1259 1959 Self-pay [id number] 1959 Unknown [id number] 1.2.840.934870.1.13.239.2. 7.3.327424.315 1959 Unknown [id number] 1.2.840.795107.1.13.239.2. 7.3.843476.315 Unknown Social History Date Type Detail Facility Tobacco smoking stat [facility] Tobacco smoking consumption unknown [facility] Phone: Start: 1994 Sex Assigned At Not on file [facility] Phone: Start: 11-15-2021 End: 12-05-2021 Exposure to SARS-CoV-2 (event) Not sure [facility] [facility]: Start: 11-29-2021 End: 05-17-2023 Tobacco smoking status [facility] Never smoked tobacco [employer] Phone: Start: 11-29-2021 End: 05-17-2023 Tobacco use and exposure Smokeless tobacco non-user [employer] [facility]: Start: 12-01-2021 End: 03-20-2025 Alcohol intake Lifetime non-drinker (finding) [facility] Phone: Start: 11-29-2021 History SDOH Financial 5 [employer] Phone: Start: 11-29-2021 History SDOH Food Worry 1 [employer] Phone: Start: 03-04-2024 End: 10-11-2024 History of Social function [facility] Start: 03-04-2024 End: 10-11-2024 [facility] Start: 05-09-2023 Alcohol Comment Caffeine intake: 1-2 cups per day coffee [facility] Start: 07-19-2023 End: 01-01-2025 Alcohol intake Ex-drinker (finding) [facility] Adolescent depressio n screening assessment 0 [facility] Start: 12-17-2017 Alcohol Comment social [facility] Start: 1995 Sex Assigned At Female [facility] Start: 07-30-2022 Gender identity Identifies as female gender (finding) [facility] Start: 07-30-2022 Sexual orientation Heterosexual (finding) [facility] Has the electric, [employer] oil, or water company threatened to shut off services in your home in past 12Mo No [facility] How often to you hav e a drink containing alcohol? Never [facility] Start: 04-15-2015 Sex Female (finding) [facility] Start: 01-23-2025 [facility] Goals Date Patient Goal Desired Activity /State Personal health goal Personal health goal Comment on above: Formatting of this n ote might be different from the original. Evaluation of progress towards goal: safe transition from hospital to home with family support. Clinical Notes 11-28-2021 to 03-20-2025 Leslye Chairez LPN - 03/20/2025 9:00 AM Gonzales Guthrie PA-C [...] body mass index of 60.0-69.9 in adult ([facility]) 01/26/2023 Polycystic ovarian disease 01/26/2023 Primary hypertension 01/26/2023 Adjustment disorder with anxiety 11/30/2021 Amnesia 05/17/2023 Anxiety 07/07/2019 Anemia 06/26/2019 Depression 06/13/2019 Disorder of endocrine system 05/17/2023 Family history of diabetes during 11/28/2021 Family history of thrombosis 03/17/2022 Frequent headaches 05/17/2023 Gastroesophageal reflux disease 12/15/2019 Gestational diabetes mellitus (GDM) ([facility]) 12/09/2018 History of diet controlled gestational diabetes mellitus (GDM) 11/30/2021 Iron deficiency anemia 12/29/2019 Irregular periods 05/17/2023 Menorrhagia with regular cycle 05/17/2023 Asthma ([facility]) 12/09/2018 Class 3 severe obesity due to excess calories with serious comorbidity and body mass index (BMI) of 50.0 to 59.9 in adult ([facility]) 05/17/2023 Nausea and vomiting 05/17/2023 Pneumonia due to infectious organism 07/30/2022 Preeclampsia in period ([facility]) 11/26/2021 Acute pulmonary embolism ([facility]) 05/17/2023 Single subsegmental pulmonary embolism without acute cor pulmonale (HCC) 05/17/2023 Seasonal allergic rhinitis due to pollen 12/15/2019 Thyroid nodule 05/17/2023 Urinary tract infection without hematuria 05/17/2023 LUCIANO on CPAP 02/22/2023 History of pulmonary embolism 03/17/2022 Resolved Ambulatory Problems Diagnosis Date Noted No Resolved Ambulatory Problems Past Medical History: Diagnosis Date Acute memory impairment COVID 02/2020 Encounter for insertion of Mirena IUD GERD without esophagitis Gestational diabetes ([facility]) H/O blood clots H/O gastric bypass H/O: hypertension High blood pressure History of being hospitalized Hormone imbalance Intrauterine device surveillance Irregular bleeding Morbid obesity with BMI of 50.0-59.9, adult ([facility]) Nausea Nausea with vomiting Pneumonia 07/30/2022 hypertension ([facility]) Pulmonary embolism ([facility]) 11/2021 Well woman exam Family History Problem [...] dipstick manually resulted , unspecified gestational age ([facility]) - Type and screen; Future - ABO/Rh; [...] supervision of normal first in first trimester ([facility]) - Rapid drug screen, urine; Future - [...] undercooked meat, and stay away from [facility]. Patient has also been advised to not change litter boxes and eat 6 small meals a day. Patient has been consulted regarding the do's and don'ts of . Patient was given labs and all questions and concerns were answered. Patient given Dewy Rose to have completed with initial labs and [...] Leslye Chairez LPN documented in this encounter [facility] 01-01-2025 History of Present illness Narrative Summary: 8 months s/p RYGB, Dr. Manzo Images from the original note were not included. [facility] GENERAL SURGERY-BARIATRIC [address] [place] [id number] Subjective Patient ID: Shira Jett is a 29 y.o. female who is [...] Morbid Obesity Height: 5 ft 1 in [place] body weight: 132 lb BMI 25.0 Personal Goal: To get healthy, stop BP meds, improve LUCIANO Pre op: 359 lb BMI 67.87 1 week post op: 338 lb BMI 63.86 6 weeks post op: NO FAMILY PRACTICE DOCTOR VISIT 3 months post op: NO VISIT [...] syndrome) Pneumonia Preeclampsia, severe 11/23/2018 Pulmonary embolism ([facility]) Shortness of breath Visual impairment stigmatism ROS: [...] adverse reactions immediately. documented in this encounter [facility] 01-01-2025 Instructions Moriah Guthrie PA-C - 01/01/2025 [...] with Dr. Manzo documented in this encounter [facility] 10-30-2024 History of Present illness Narrative 6 month labs entered. Patient has appointment 11/13/24 with May. documented in this encounter [facility] 10-10-2024 History of Present illness Narrative Images [...] B-12) 1000 MCG/ML injection D3-50 1.25 MG (64789 UT) capsule fluticasone (Flonase) 50 MCG/ACT nasal [...] Depression: Not at risk (04/23/2024) Received from [facility] PHQ-2 Total Score: 0 REVIEW OF SYMPTOMS: [...] STATUS COVID-19/FLU (Completed) documented in this encounter [facility] 08-25-2024 History of Present illness Narrative Images [...] B-12) 1000 MCG/ML injection D3-50 1.25 MG (22006 UT) capsule fluticasone (Flonase) 50 MCG/ACT nasal [...] Depression: Not at risk (04/23/2024) Received from [facility] PHQ-2 Total Score: 0 REVIEW OF SYMPTOMS: [...] Assessment & Plan documented in this encounter [facility] 06-12-2024 History of Present illness Narrative Shira Jett is a 29 y.o. female presents with chief complaint of UTI HPI: HPI SUBJECTIVE: MEDICATIONS: Current Outpatient Medications Medication Instructions albuterol HFA 90 mcg/act inhaler 2 puffs, Inhalation, Every 4 hours PRN busPIRone (BUSPAR) 15 mg, Oral, 2 times daily citalopram (CELEXA) 20 mg, Oral, Every morning D3-50 1.25 MG (28958 UT) capsule fluticasone (Flonase) 50 MCG/ACT nasal [...] Depression: Not at risk (04/23/2024) Received from [facility] PHQ-2 Total Score: 0 REVIEW OF SYMPTOMS: [...] of vitamin comlpiance documented in this encounter [facility] 06-04-2024 History of Present illness Narrative Per [...] adverse reactions immediately. documented in this encounter [facility] 06-04-2024 History of Present illness Narrative Bariatric [...] % Decreased BMI: 10.14 Tacking intake in [employer] sly. Struggles meeting 80 grams of protein [...] iron daily or 1 vitamin daily. 2) 2612-8458 mg calcium in divided doses (2x/day) for sleeve and gastric bypass, 8408-8757 mg in divided doses (3x/day) for SADS [...] been provided within the [facility]. Start time: 1038 End time: 1108 documented in this encounter [facility] 06-04-[address] - 06/04/2024 10:30 AM EDT Read the [facility] Guide. If you re looking for general health and wellness resources, please visit [email or web address]. documented [facility] encounter [facility] History of Present illness Narrative Bariatric Medical [...] been provided within the [facility]. Nutrition Monitoring: To follow up approximately 6 weeks post-op weight loss surgery. Start time: 1243 End time: 1301 documented in this encounter [facility] 05-01-[address] - 05/01/2024 1:00 PM EDT Read the [facility] Guide. If you re looking for general health and wellness resources, please visit [email or web address] documented [facility] encounter [facility] 05-[facility] History of Present illness Narrative [facility] [address] [facility] [phone] SURGICAL WEIGHT LOSS PROGRAM PROGRESS NOTE POSTOP [...] [x] Exercise Regularly documented in this encounter [facility] 04-27-2024 Miscellaneous Notes Contract: OC 105 Patient calling in stating she just had surgery on the Apr 23 and she is having bloody mucous when she coughs. Connected Dr. Manzo with Shira documented in this encounter [facility] 04-27-2024 Telephone encounter Note Contract: OC 105 Patient calling in stating she just had surgery on the Apr 23 and she is having bloody mucous when she coughs. Connected Dr. Manzo with Shira [facility] 04-24-2024 Hospital course Narrative Images from the [...] Your Medications These medications were sent to [facility] [id number] [facility] [address] [facility] [address] [facility] [address] cyclobenzaprine 10 mg tablet enoxaparin 40 mg/0.4 mL syringe omeprazole 40 mg capsule ondansetron ODT 4 mg disintegrating tablet oxyCODONE-acetaminophen 5-325 mg per tablet Moriah Guthrie PA-C 04/24/24 1048 Moriah Guthrie PA-C 04/24/24 1050 documented in this encounter [facility] 04-24-2024 Progress note Formatting of t his [...] - Shira Bledsoe RN 04/24/24 10:44 AM [facility] 04-24-2024 Miscellaneous Notes DISCHARGE PLANNING NOTE Case [...] Description: INTERVENTIONS: 1. Encourage patient or legal district sales representative to report early pain and ask [...] per policy 9. Teach patient or legal district sales representative interventions for comforting Outcome: Progressing Note: [...] at the bedside 7. Instruct patient/ patient district sales representative about use of safety devices 8. Include patient/ patient district sales representative in decisions related to safety Outcome: [...] hygiene technique 7. Identify and instruct patient/patient district sales representative in use of appropriate isolation precautions for identified infection/symptoms 8. Provide and discuss with patient/patient district sales representative on educational MDRO sheet 9. Encourage and monitor nutritional status daily and consult drum sander if indicated 10. Implement neutropenic guidelines as needed 11. Review exposure to history of communicable disease and recent travel history on admission 12. Encourage annual influenza vaccine 13. Encourage pneumonia vaccine Outcome: Progressing Note: Evaluation of progress towards goal: afebrile, cont to monitor Problem: Knowledge Deficit Goal: Patient/patient district sales representative demonstrates understanding of disease process, treatment [...] Collaborate with ancillary departments 14. Include patient/patient district sales representative in decisions related to anxiety Outcome: [...] care 6. Collaborate with pastoral/spiritual care, social research assistant, mental health counselor as needed. 7. Instruct patient on diversional activities such as physical activity, distraction, and deep breathing exercises to assist with coping 8. Involve patient's district sales representative in care Outcome: Progressing Note: Evaluation [...] Description: INTERVENTIONS: 1. Encourage patient or legal district sales representative to report early pain and ask [...] per policy 9. Teach patient or legal district sales representative interventions for comforting Outcome: Progressing Note: [...] at the bedside 7. Instruct patient/ patient district sales representative about use of safety devices 8. Include patient/ patient district sales representative in decisions related to safety Outcome: [...] hygiene technique 7. Identify and instruct patient/patient district sales representative in use of appropriate isolation precautions for identified infection/symptoms 8. Provide and discuss with patient/patient district sales representative on educational MDRO sheet 9. Encourage and monitor nutritional status daily and consult drum sander if indicated 10. Implement neutropenic guidelines as needed 11. Review exposure to history of communicable disease and recent travel history on admission 12. Encourage annual influenza vaccine 13. Encourage pneumonia vaccine Outcome: Progressing Note: Evaluation of progress towards goal: Pt vitals and labs monitored, proper standard precautions for infection prevention, all insertion/surgical sites monitored for infection Problem: Knowledge Deficit Goal: Patient/patient district sales representative demonstrates understanding of disease process, treatment [...] be free from fall Description: Interventions: 1. [place] to environment 2. Hourly rounds addressing the [...] non-skid footwear 11. Teach patient and patient district sales representative to maintain environment for safety and [...] Description: INTERVENTIONS: 1. Encourage patient or legal district sales representative to report early pain and ask [...] per policy 9. Teach patient or legal district sales representative interventions for comforting Outcome: Progressing Note: [...] at the bedside 7. Instruct patient/ patient district sales representative about use of safety devices 8. Include patient/ patient district sales representative in decisions related to safety Outcome: Progressing Note: Evaluation of progress towards goal: patient is independent and stead on feet Problem: Knowledge Deficit Goal: Patient/patient district sales representative demonstrates understanding of disease process, treatment [...] Bonnie-en-Y Gastric Bypass Surgeon: Tonia Manzo MD Body Piercer: Hanna Jaquez MD-Fellow Anesthesia: General Endotracheal Intra-operative [...] brought up to the pouch in an [place] loop technique and reached the pouch without [...] as the Bonnie limb and then a [id number] stapled jejunojejunostomy was completed using a 60 [...] MANZO MD 04/23/24 documented in this encounter [facility] [employer] 04-24-2024 Plan of care note Problem: Pain Goal: Patient goal is pain score less than 4, able to rest, and participant in treatment plan as appropriate Description: INTERVENTIONS: 1. Encourage patient or legal district sales representative to report early pain and ask [...] per policy 9. Teach patient or legal district sales representative interventions for comforting Outcome: Progressing Note: [...] at the bedside 7. Instruct patient/ patient district sales representative about use of safety devices 8. Include patient/ patient district sales representative in decisions related to safety Outcome: [...] hygiene technique 7. Identify and instruct patient/patient district sales representative in use of appropriate isolation precautions for identified infection/symptoms 8. Provide and discuss with patient/patient district sales representative on educational MDRO sheet 9. Encourage and monitor nutritional status daily and consult drum sander if indicated 10. Implement neutropenic guidelines as needed 11. Review exposure to history of communicable disease and recent travel history on admission 12. Encourage annual influenza vaccine 13. Encourage pneumonia vaccine Outcome: Progressing Note: Evaluation of progress towards goal: afebrile, cont to monitor Problem: Knowledge Deficit Goal: Patient/patient district sales representative demonstrates understanding of disease process, treatment [...] planning to home later today Additional Comments: [facility] 04-24-2024 History of Present illness Narrative MBS [...] on having access to the bariatric surgeon glue bone drier 02/04, by calling the office phone number. Will monitor her B/P when goes home. Instructed to bring B/P log to her one-week follow-up appointment. All education provided outlined within the [facility]. Patient verbalized an understanding of all education reinforced. Personalized letter mailed to patient, providing quality analyst/technical writer's contact information. Melanie Zee RN, CBN Metabolic & Bariatric Surgery Coordinator [facility] Surgery Shira Jett is doing [...] Discussed with Dr. Anais Guthrie PA-C 04/24/24 1046 documented in this encounter [facility] [employer] 04-23-2024 Plan of care note Problem: Inadequate [...] Collaborate with ancillary departments 14. Include patient/patient district sales representative in decisions related to anxiety Outcome: [...] care 6. Collaborate with pastoral/spiritual care, social research assistant, mental health counselor as needed. 7. Instruct patient on diversional activities such as physical activity, distraction, and deep breathing exercises to assist with coping 8. Involve patient's district sales representative in care Outcome: Progressing Note: Evaluation [...] Description: INTERVENTIONS: 1. Encourage patient or legal district sales representative to report early pain and ask [...] per policy 9. Teach patient or legal district sales representative interventions for comforting Outcome: Progressing Note: [...] at the bedside 7. Instruct patient/ patient district sales representative about use of safety devices 8. Include patient/ patient district sales representative in decisions related to safety Outcome: [...] hygiene technique 7. Identify and instruct patient/patient district sales representative in use of appropriate isolation precautions for identified infection/symptoms 8. Provide and discuss with patient/patient district sales representative on educational MDRO sheet 9. Encourage and monitor nutritional status daily and consult drum sander if indicated 10. Implement neutropenic guidelines as needed 11. Review exposure to history of communicable disease and recent travel history on admission 12. Encourage annual influenza vaccine 13. Encourage pneumonia vaccine Outcome: Progressing Note: Evaluation of progress towards goal: Pt vitals and labs monitored, proper standard precautions for infection prevention, all insertion/surgical sites monitored for infection Problem: Knowledge Deficit Goal: Patient/patient district sales representative demonstrates understanding of disease process, treatment [...] be free from fall Description: Interventions: 1. [place] to environment 2. Hourly rounds addressing the [...] non-skid footwear 11. Teach patient and patient district sales representative to maintain environment for safety and engage in all aspects of fall prevention program Outcome: Progressing Note: Evaluation of progress towards goal: Patient remains free from falls and injuries. Patient's 5 P's addressed. Patient bed is in a locked position. Patient has call light for assistance. [facility] 04-23-2024 Plan of care note Problem: Pain Goal: Patient goal is pain score less than 4, able to rest, and participant in treatment plan as appropriate Description: INTERVENTIONS: 1. Encourage patient or legal district sales representative to report early pain and ask [...] per policy 9. Teach patient or legal district sales representative interventions for comforting Outcome: Progressing Note: [...] at the bedside 7. Instruct patient/ patient district sales representative about use of safety devices 8. Include patient/ patient district sales representative in decisions related to safety Outcome: Progressing Note: Evaluation of progress towards goal: patient is independent and stead on feet Problem: Knowledge Deficit Goal: Patient/patient district sales representative demonstrates understanding of disease process, treatment plan, medications, and discharge instructions Description: INTERVENTIONS 1. Complete learning assessment and assess knowledge base 2. Provide teaching at level of understanding 3. Provide teaching via preferred learning method(s) Note: Evaluation of progress towards goal: patient educated on importance of ambulating in the hallways [facility] 04-23-2024 Procedure note Bonnie-en-Y Gastric Bypass Operative Note Patient: Shira Jett : 1995 Date: 04/23/24 Preoperative diagnosis: Class 3 obesity with a BMI of 66.9 Postoperative diagnosis: same Procedure: Robotic Bonnie-en-Y Gastric Bypass Surgeon: Tonia Manzo MD Body Piercer: Hanna Jaquez MD-Fellow Anesthesia: General Endotracheal Intra-operative [...] brought up to the pouch in an [place] loop technique and reached the pouch without [...] as the Bonnie limb and then a [id number] stapled jejunojejunostomy was completed using a 60 [...] in satisfactory condition. TONIA MANZO MD 04/23/24 [facility] 04-23-2024 Attending History and physical note HISTORY AND PHYSICAL INTERVAL NOTE: Shira Jett 1995 [id number] H&P reviewed. The patient was examined and there are no changes to the H&P. TONIA MANZO MD Source Note - Brenda Hubbard, TRAVEL COUNSELOR [employer]-CASE CHECKER - 04/15/2024 8:30 AM EDT PRE-ADMISSION TESTING HISTORY AND PHYSICAL EXAM DATE: 04/15/24 PCP: Riddhi Plata MD HISTORY OF PRESENT ILLNESS: Shira Jett, a 29 y.o. White or female, presents to [facility] for a pre-surgical H&P. The patient has [...] syndrome) Pneumonia Preeclampsia, severe 11/23/2018 Pulmonary embolism ([facility]) Shortness of breath Visual impairment stigmatism PAST [...] the most recent lab values available in [facility] at the time of the office visit and additional labs may have been drawn since that time. ASSESSMENT / DIAGNOSIS: MORBID OBESITY/HYPERTENSION PLAN: Shira Jett is scheduled for Davinci Bypass Gastric Bonnie En Y on 04/23/[address] Manzo. MARCEL Louis 04/15/24 1001 MARCEL Louis 04/23/24 0843 [facility] 04-23-2024 History and physical note HISTORY AND PHYSICAL INTERVAL NOTE: Shira Jett 1995 [id number] H&P reviewed. The patient was examined and there are no changes to the H&P. TONIA MANZO MD Source Note - MARCEL Louis - 04/15/2024 8:30 AM EDT PRE-ADMISSION TESTING HISTORY AND PHYSICAL EXAM DATE: 04/15/24 PCP: Riddhi Plata MD HISTORY OF PRESENT ILLNESS: Shira Jett, a 29 y.o. White or female, presents to [facility] for a pre-surgical H&P. The patient has [...] syndrome) Pneumonia Preeclampsia, severe 11/23/2018 Pulmonary embolism ([facility]) Shortness of breath Visual impairment stigmatism PAST [...] the most recent lab values available in [facility] at the time of the office visit and additional labs may have been drawn since that time. ASSESSMENT / DIAGNOSIS: MORBID OBESITY/HYPERTENSION PLAN: Shira Jett is scheduled for Davinci Bypass Gastric Bonnie En Y on 04/23/[address] Manzo. Brenda Hubbard APRN-DEREK 04/15/24 1001 MARCEL Louis 04/23/24 0843 documented in this encounter [facility] 04-17-2024 Miscellaneous Notes Patient contacted office. Needs RX for colace resent to [facility]. documented in this encounter [facility] 04-17-2024 Telephone encounter Note Patient contacted office. Needs RX for colace resent to [facility]. [facility] 04-16-2024 Note XR CHEST 2 VWS Clinical history: Preoperative evaluation. Comparisons: 11/24/2018 through 06/23/2023. Findings: PA and lateral chest radiographs were obtained. Cardiomediastinal silhouette and pulmonary vasculature appear within normal limits. Lungs appear clear. There is no evidence for pleural effusion nor pneumothorax. IMPRESSION: No evidence for acute cardiopulmonary disease. Finalized by Patel Abraham MD on 04/16/2024 11:03 AM [facility] 04-15-2024 History of Present illness Narrative Pre-operative [...] and symptoms of complications to report. 3. [id number] steps to weight loss surgery. 4. Instructed to bring [facility] Guide to all appointments. 5. Explained [...] ask questions. Written materials provided within the [facility] Guide. Attesting Statement (Primary Care Exception) I reviewed the care furnished by the resident, immediately after the visit including the medical history, diagnosis, findings on physical examination, and treatment plan. I participated in the review and direction of the services furnished by Page Huang RN. documented in this encounter [facility] 04-15-2024 Instructions Nilam Stallworth RN - 04/15/2024 2:00 PM EDT Preoperative Bariatric Surgery Educational Class documented in this encounter [facility] 04-15-2024 History of Present illness Narrative Pre op CXR entered. documented in this encounter [facility] 04-15-2024 History and physical note PRE-ADMISSION TESTING HISTORY AND PHYSICAL EXAM DATE: 04/15/24 PCP: Riddhi Plata MD HISTORY OF PRESENT ILLNESS: Shira Jett, a 29 y.o. White or female, presents to [facility] for a pre-surgical H&P. The patient has [...] syndrome) Pneumonia Preeclampsia, severe 11/23/2018 Pulmonary embolism ([facility]) Shortness of breath Visual impairment stigmatism PAST [...] the most recent lab values available in [facility] at the time of the office visit and additional labs may have been drawn since that time. ASSESSMENT / DIAGNOSIS: MORBID OBESITY/HYPERTENSION PLAN: Shira Jett is scheduled for [facility] Bypass Gastric Bonnie En Y on 04/23/[address] Manzo. MARCEL Louis 04/15/24 1001 [facility] Work Phone: 04-15-2024 History and physical note PRE-ADMISSION TESTING HISTORY AND PHYSICAL EXAM DATE: 04/15/24 PCP: Riddhi Plata MD HISTORY OF PRESENT ILLNESS: Shira Jett, a 29 y.o. White or female, presents to [facility] for a pre-surgical H&P. The patient has [...] syndrome) Pneumonia Preeclampsia, severe 11/23/2018 Pulmonary embolism ([facility]) Shortness of breath Visual impairment stigmatism PAST [...] the most recent lab values available in [facility] at the time of the office visit and additional labs may have been drawn since that time. ASSESSMENT / DIAGNOSIS: MORBID OBESITY/HYPERTENSION PLAN: Shira Jett is scheduled for Davinci Bypass Gastric Bonnie En Y on 04/23/[address] Manzo. MARCEL Louis 04/15/24 1001 documented in this encounter [facility] 04-15-2024 Instructions Melanie Garcia RN - 04/15/2024 8:30 AM EDT Your surgery/procedure is scheduled at [facility] on at 9:30 am Arrival Time 7:30 am [facility] Address: [address] [place] [address] in [address]1 Parking lot located on [facility]. Report to the Entrance B. Check in at the information desk the surgery. The waiting room located on the second floor. If you have any questions prior to surgery, please call Pre-Admission Clinic at [phone] between 7:30 am and 4:30 pm Sunday through Sunday. If you have questions the morning of surgery, please call the Pre-op Department at [phone]. Notify your SURGEON if you develop any [...] piercings ,hair extensions that contain metal, nail occitan, make-up, and contact lens. You may brush [...] RIGHTS AND RESPONSIBILITIES As a patient at [facility], you have the right to: Receive medical care and be informed of who is taking care of you Be treated with dignity and respect Have a family member/district sales representative of choice and your physician notified of your admission Receive information and actively participate in decisions about your care and treatment Refuse care, treatment and services Decide who may provide your support and speak for you Access cheondoism and spiritual services Participate in ethical issues [...] of hospital charges and payment methods Patient/patient district sales representative responsibilities are to: Provide information about [...] in clean clothes. documented in this encounter [facility] 03-27-2024 History of Present illness Narrative Subjective: [...] post operative visit documented in this encounter [facility] 03-17-2024 History of Present illness Narrative Shira Souza Johnie Date of visit: 03/17/2024 Date of : [...] apnea Pneumonia Preeclampsia, severe 11/23/2018 Pulmonary embolism ([facility]) Shortness of breath No data recorded No [...] Resource Strain: Low Risk (11/29/2021) Re[facility] from [facility] Overall Financial Resource Strain (CARDIA) Difficulty [...] MD Referring Physician: Riddhi Plata MD [address] [place] [address] documented in this encounter [facility] 03-12-2024 Miscellaneous Notes Called patient to remind them to bring their most current copy of their medication list with them to their appt. Patient verbalizes understanding. documented in this encounter [facility] 03-12-2024 Telephone encounter Note Called patient to remind them to bring their most current copy of their medication list with them to their appt. Patient verbalizes understanding. [facility] 03-06-2024 History of Present illness Narrative Bariatric [...] meals on protein. Discussed healthier choices at [facility]. Bariatric Medical Nutrition Therapy Goal Summary Eat [...] all discussed has been provided within the [facility] Bariatric Guide. My contact name and number provided if questions or concerns arise. Nutrition Monitoring: To follow up in 1 month to show progress towards goals. Start time: 1316 End time: 1329 documented in this encounter [facility] 03-06-[address] - 03/06/2024 1:30 PM EDT Read the [facility] Bariatric Guide. If you re looking for general health and wellness resources, please visit [email or web address]. documented in this encounter [facility] 02-07-2024 History of Present illness Narrative Bariatric [...] Physical Activity: walking the zoo, went to [place] for vacation and walked at the [facility] trips and active with work Bariatric [...] all discussed has been provided within the [facility] Bariatric Guide. My contact name and number provided if questions or concerns arise. Nutrition Monitoring: To follow up in 1 month to show progress towards goals. Start time: 1330 End time: 1348 documented in this encounter [facility] 02-07-[address] - 02/07/2024 1:30 PM EDT Read the [facility] Bariatric Guide. If you re looking for general health and wellness resources, please visit [email or web address]. documented in this encounter [facility] 01-02-2024 History of Present illness Narrative Bariatric [...] Recall: Breakfast Snack Lunch Snack Dinner Snack [place] with cheese and low fat sour cream [place] cheese and low fat sour cream [place] cheese and low fat sour cream Beverage [...] all discussed has been provided within the [facility]. My contact name and number provided if questions or concerns arise. Nutrition Monitoring: To follow up in 1 month to show progress towards goals. Start time: 1208 End time: 1219 documented in this encounter [facility] 01-02-[address] - 01/02/2024 12:30 PM EDT Read the [facility] Bariatric Guide. If you re looking for general health and wellness resources, please visit [email or web address]. documented in this encounter [facility] 12-05-2023 History of Present illness Narrative Patient visited the [facility] and received food on 12/05/23. Provided one time food bag today. Patient needs a referral. Aby Davey [facility] documented in this encounter [facility] 12-05-2023 History of Present illness Narrative Bariatric Medical Nutrition Therapy Nutritional Assessment/Education Session #: 9 Shira Jett is a 28 y.o. female who presents for follow up medical nutritional therapy for weight loss surgery. Weight Change 12/05/2023 Weight: (!) 163.5 kg (360 lb 6.4 oz) Weight Change: up 1.4 pounds in 1 month Shira's lost his job, so she started working with [employer] and [employer]. She finds this has really increased her daily activity. She is drinking just water. But with lack of funds she has been using up foods in her house. She has applied for food stamps and hopes to get that soon. She has not tried food vega as the ones in her area only give starches. Discussed [facility]. Bariatric Medical Nutrition Therapy Goal [...] all discussed has been provided within the [facility] Bariatric Guide. My contact name and number provided if questions or concerns arise. Nutrition Monitoring: To follow up in 1 month to show progress towards goals. Start time: 1332 End time: 1355 documented in this encounter [facility] 12-05-[address] - 12/05/2023 1:30 PM EDT Read the [facility] Bariatric Guide. If you re looking for general health and wellness resources, please visit [email or web address]. documented in this encounter [facility] 11-08-2023 History of Present illness Narrative Bariatric [...] all discussed has been provided within the [facility] Bariatric Guide. My contact name and number provided if questions or concerns arise. Nutrition Monitoring: To follow up in 1 month to show progress towards goals. Start time: 1122 End time: 1138 documented in this encounter [facility] 11-08-[address] - 11/08/2023 11:30 AM EST Read the [facility] Bariatric Guide. If you re looking for general health and wellness resources, please visit [email or web address]. documented in this encounter [facility] Evaluation note Diagnosis PONV (postoperative nausea and vomiting)- Primary Nausea with vomiting Unable to assess patient's smoking status within the last 12 months Constipation, unspecified constipation type Vitamin D deficiency Chronic RUQ pain Abdominal pain, right upper quadrant documented in this encounter [facility]N [id number] History of Present illness Narrative* Theodora Early MD - 10/10/2023 8:15 AM EST Shira Millardgh Johnie Date of visit: 10/10/2023 Date of [...] Patient presents with New Patient pre op data input clerk-ref from Tonia Manzo MD for pre op [...] pulmonary embolism. She had PE back in 2019 took oral anticoagulation for 6 months. She [...] apnea Pneumonia Preeclampsia, severe 11/23/2018 Pulmonary embolism ([facility]) Shortness of breath No data recorded [...] Referring Physician: Tonia Manzo MD [address] [address] [facility] in [facility] [id number] History of Present illness Narrative* Les Diane [...] 1045 End time: 1108 documented in this [facility]01-30-2024 Instructions* Patient Instructions* Les Diane RD - 10/09/2023 11:00 AM EST Read the [facility] Bariatric Guide. If you re looking for general health and wellness resources, please visit [email or web address]. documented in this [facility]01-30-2024 Miscellaneous Notes* Telephone Encounter - Anne Ruiz CMA - 10/09/2023 10:27 AM EST Called patient to remind them to bring their most current copy of their medication list with them to their appt. Patient verbalizes understanding. documented in this [facility]01-30-2024 Telephone encounter Note* Telephone Encounter - Anne Ruiz CMA - 10/09/2023 10:27 AM EST Called patient to remind them to bring their most current copy of their medication list with them to their appt. Patient verbalizes understanding. [facility]01-18-2024 History of Present illness Narrative* NEIL Mcgowan - 09/27/2023 11:45 AM EST Images from the original note were not included. * Jalyn Arredondo Marcy, DO - 09/27/2023 11:45 AM EST [employer] [employer] Progress Note Patient - Shira Jett Age - 28 y.o. - 1995 ASSESSMENT Mild intermittent asthma, well controlled LUCIANO [...] Meds Medications Reviewed. Dr. Jalyn Vidal DO. [facility] Office: [phone] [facility] History of Present illness Narrative* Les Diane RD - 09/06/2023 11:00 AM EST Bariatric Medical Nutrition Therapy Nutritional Assessment/Education Session #: 6 Shira eJtt is a 28 y.o. female who presents [...] 1100 End time: 1119 documented in this encounterFort [facility] HospitalDynam[facility]12-28-2023 Instructions* Patient Instructions* Les Diane RD - 09/06/2023 11:00 AM EST Read the [facility] Bariatric Guide. If you re looking for general health and wellness resources, please visit [email or web address]. [facility]23 NoteOP Note OPERATION DATE: 11/03/2022 PROCEDURE: Diagnostic laparoscopy with removal of IUD. PREOPERATIVE DIAGNOSIS: Desires permanent sterilization, desires removal of IUD, multiparity. POSTOPERATIVE DIAGNOSIS: Desires permanent sterilization, desires removal of IUD, multiparity. ANESTHESIA: General. SURGEON: Bin Morales D.O. STEAM TRAP WORKER: TIMOTEO Watson URINE OUTPUT: Yellow and clear. BLOOD LOSS: 5 mL. SPECIMEN: None. FINDINGS: Unable to perform procedure due to patient's extreme BMI and inadequate visualization. PROCEDURE: Patient was taken back to the operating room. She was given general anesthesia without difficulty. She was prepped and draped in the normal sterile fashion, [facility]. The weighted speculum was placed in patient's [...] was waken up and taken to recovery.[id number] Hospital Discharge instructions* Instructions* Tonia Wolfe PA-C - 12/05/2021 Follow outpatient tomorrow with doctor or by calling [phone] or [phone]. Return to ER immediately if symptoms worsen or persist. * Attachments The following attachments cannot be sent through Care Everywhere. * SOB (Shortness of Breath) ([facility]) documented in this encounterKiala Phone: 1(781) 542-659403-24-2022 History of Present illness Narrative* Sonu Morales - 12/01/2021 4:13 PM EDT CLINICAL PHARMACY NOTE: MEDS TO BEDS Total # of Prescriptions Filled: 1 The following medications were delivered to the patient: xarelto starter pack Additional Documentation: * Marilee Medina MD - 12/01/2021 8:44 AM EDT Images from the original note were not included. [facility] Office: [phone] Cem Jenkins DO, Cyrus Cannon DO, Dave [...] CNP, Ysabel Steen CNP, Jami Heard, NAVYA, Timothy Hill CNP, Tayler Watts CNP, Grecia Chavez, CASE CHECKER, Shira Payne, CASE CHECKER, Sergio Steiner, CASE CHECKER, Alok Reese PA-C, Nilam Valdes DNP, Oriana Montero, CORNELL, Krystina Gil, DEREK, Georgina Dale CNP, Stacy Velazquez CNP [facility] IN-PATIENT SERVICE [facility] Progress Note 12/01/2021 8:44 AM Name: Shira Leone Acct: [id number] Room: Day: 1 Admit Date: 11/30/2021 7:38 [...] Brief History: 26-year-old female recently delivered at [place] around 11/24/2021 was transferred to [facility] for blood pressure management due to history [...] ending 12/01/21 0844 Labs: Hematology: Recent Labs 11/30/21202012/01/21812/01/21 0358 WBC 10.2 10.4 10.0 RBC 4.06 3.90* 3.86* HGB 10.8* 10.4* 10.2* HCT 35.0* 33.6* 33.3* MCV 86.2 86.2 86.3 MCH 26.6 26.7 26.4 MCHC 30.9 31.0 30.6 RDW 14.8* 14.8* 14.8* PLT 351 342 314 MPV 9.1 9.1 8.9 INR 1.1 1.3 -- DDIMER 1.73* -- -- Chemistry: Recent Labs 11/30/21202011/30/21202011/30/21220112/01/21 0009 12/01/21 0358 NA 134* -- -- -- 137 [...] this interval not displayed. Recent Labs 11/30/21202012/01/21 03512/01/21 0414 PROT 6.9 6.3* -- LABALBU 3.7 3.4* -- TSH -- 2.20 -- AST 15 16 -- ALT 31 28 -- LDH 171 -- -- ALKPHOS 102 93 -- BILITOT 0.21* 0.18* -- URICACID 8.0* -- -- POCGLU -- -- 91 ABG:No results found for: POCPH, PHART, PH, POCPCO2, EXH1NAG, PCO2, POCPO2, PO2ART, PO2, POCHCO3, EBW4SDA, HCO3, NBEA, PBEA, BEART, BE, THGBART, THB, KMC7VHT, SFQS2EYK, C6BIMCPM, O2SAT, FIO2 No results found for: SPECIAL [...] DVTs requiring what appears to be a Tonio filter in place. Due to insurance patient [...] 12:00 AM EDT Patient arrived to room 2042. Vitals obtained. Orders released. documented in this encounterKettering [facility] CenterPl[facility] Phone: 1(363) 283-793003-24-2022 Hospital Discharge instructions* Discharge Instr - Activity* [...] most local grocery stores, pharmacies, and chain [employer]-stores. If you have any questions about your diet or nutrition, call the hospital and ask for the dietitian. * Attachments The following attachments cannot be sent through Care Everywhere. * Pulmonary Embolism ([facility]) * rivaroxaban ([facility]) * Blood Clots: Inpatient: Quick List ([facility]) * Blood Clots and : General Info ([facility]) documented in this [facility] Phone: 1(831) 184-231303-22-2022 History of Present illness Narrative* Milana Luong - 11/29/2021 11:03 AM EDT CLINICAL PHARMACY NOTE: MEDS TO BEDS Total # of Prescriptions Filled: 3 The following medications were delivered to the patient: Nifedipine er 90 mg tab Citalopram 10 mg tab Labetalol 300 mg tab Additional Documentation:Medications delivered to patients room 702 @ 10:38 am no copays. * Kitty Flores, DO - 11/29/2021 2:14 AM EDT POST [...] patient Attending Physician: Dr. Reji Flores DO Orthopedic Physical Therapist Resident 11/29/2021, 2:15 AM * Adeola Gupta [...] Sudden Infant Syndrome were reviewed with recommendations. sleeping, back to sleep and avoidance of [...] patient Attending Physician: Dr. Candy Flores DO Orthopedic Physical Therapist Resident 11/28/2021, 4:22 AM Date: 11/28/2021 Time: 7:32 PM Patient Name: Shira Leone Patient : 1995 Room/Bed: [facility]/0702- Admission Date/Time: 11/26/2021 2:06 AM Attending Physician [...] Attending's Name: ADEOLA GUPTA DO * Isidro Chester DO - 11/27/2021 6:13 AM EDT Images [...] patient Attending Physician: Dr. Mauricio Moore DO Orthopedic Physical Therapist Resident 11/27/2021, 6:13 AM Attending Physician Statement I have discussed the care of Shira Leone, including pertinent history and exam findings, with theresident. I have seen and examined the patient and the navarrete elements of all parts of the encounter have been performed by me. I agree with the assessment, plan and orders as documented by the resident. (GC Modifier) Isidro Chester DO * Brandie Moore DO - 11/26/2021 [...] Continue to monitor closely Brandie Moore DO Orthopedic Physical Therapist Resident 11/26/2021, 7:15 PM * Brandie Moore [...] 142/62 Pulse: 81 88 85 81 Resp: 16 Temp: 97.5 F (36.4 C) TempSrc: Oral SpO2: 98% 98% 98% Weight: Height: Physical Exam: Chest: clear to auscultation bilaterally Heart: RRR no murmur Abdomen: soft, nontender, nondistended Extremities: DTR decreased Right: 09/13 Left: 09/13 Clonus: absent Urine Output: 133mL/hr; Yellow urine [...] Continue to monitor closely Brandie Moore DO Orthopedic Physical Therapist Resident 11/26/2021, 3:10 PM * Juliana Leyva DO - 11/26/2021 11:10 AM EDT Resident Interval Magnesium Sulfate Note Shira Leone is a 26 y.o. female No obstetric history on file. PPD# 5 s/p 3/14/22 The patient is resting comfortably. She denies [...] Pulse: 80 78 69 84 Resp: 16 16 Temp: TempSrc: SpO2: 98% Weight: Height: [...] - Continue to monitor Juliana Leyva DO Orthopedic Physical Therapist Resident 11/26/2021, 10:02 AM * Jenifer Maki DO - 11/26/2021 8:51 AM EDT Obstetric/Gynecology Resident Interval Note Notified by RN of severe range blood pressures. Will treat with IV labetalol 20 mg and add Procardia 30 mg XL. Jenifer Maki DO COUNTER HELPER Resident, PGY3 [place], [place] 11/26/2021, 8:51 AM * Juany Salmeron, - 11/26/2021 6:54 AM EDT Resident Interval [...] ALT/AST 44/29>44.26, P/C 0.35 Juany Salmeron DO Orthopedic Physical Therapist Resident 11/26/2021, 6:54 AM documented in this [facility] Phone: 1(573) 821-215003-21-2022 Hospital Discharge instructions* Instructions* Mich Duran DO [...] most return to normal levels over the medical terminologist. Take and record your blood pressure at [...] you have had preeclampsia, you have a [id number]-[id number] risk of heart disease, stroke, and kidney [...] Where can you learn more? Go to [email or web address] and sign in to your CH4e account. Enter Q718 in the Search Health Information box to learn more about Learning About Preeclampsia After Childbirth. If you do not have an account, please click on the Sign Up Now link. Current as of: February 23, 2021 Content Version: 13.1 [employer]. Care instructions adapted under license by [employer]. If you have questions about a medical condition or this instruction, always ask your healthcare professional. [employer] disclaims any warranty or liability for your use of this information. documented in this encounterKiala Phone: evaluation note* Diagnosis Preeclampsia in period- Primary documented in this encounter [facility] Phone: evalrpfxja note* Diagnosis Hx PP Pre E w/ SF- Primary Anemia Anemia, unspecified Depression/Anxiety Depressive disorder, not elsewhere classified Hx GDM Abnormal maternal glucose tolerance, complicating , childbirth, or the puerperium, unspecified as to episode of care FHx DM documented in this encounter [facility] Phone: evalttqshl note* Diagnosis Acute pulmonary embolism, unspecified pulmonary embolism type, unspecified whether acute cor pulmonale present ([facility]) Class 3 severe obesity due to excess calories with serious comorbidity and body mass index (BMI) of 50.0 to 59.9 in adult (HCC) Thyroid nodule Nontoxic uninodular goiter documented in this encounter [facility] Phone: evaluation note* Diagnosis Shortness of breath- Primary documented in this encounter [facility] Phone: evaluation note* Diagnosis Acute cystitis with hematuria- Primary Dysuria documented in this encounter [facility]* Diagnosis Non-recurrent acute serous otitis media of left ear- Primary Bariatric surgery status Vitamin D deficiency Iron deficiency anemia, unspecified iron deficiency anemia type documented in this encounter [facility] HealthcareEvaluation note* Diagnosis Influenza A- Primary Influenza with other respiratory manifestations Fever, unspecified fever cause documented in this encounter [facility] HealthcareEvaluation note* Diagnosis Pre-bariatric surgery nutrition evaluation- Primary Morbid obesity ([facility]) Morbid obesity [facility]* Diagnosis Pre-bariatric surgery nutrition evaluation- Primary Morbid obesity ([facility]) Morbid obesity documented [facility] encounter [facility]* Diagnosis Preop testing- Primary Unspecified pre-operative examination documented [facility]* Diagnosis Mild intermittent asthma, unspecified whether complicated- Primary LUCIANO on CPAP documented [facility] encounter [facility]* Diagnosis Pre-bariatric surgery nutrition evaluation- Primary Morbid obesity ([facility]) Morbid obesity [facility]* Diagnosis Preop testing- Primary Unspecified pre-operative examination LUCIANO on CPAP History of pulmonary embolism Personal history of venous thrombosis and embolism Class 2 severe obesity due to excess calories with serious comorbidity in adult, unspecified BMI ([facility]) Essential hypertension Unspecified essential hypertension documented [facility]* Diagnosis Pre-bariatric surgery nutrition evaluation- Primary Morbid obesity ([facility]) Morbid obesity documented [facility]* Diagnosis Pre-bariatric surgery nutrition evaluation- Primary Morbid obesity ([facility]) Morbid obesity [facility]* Diagnosis Preop cardiovascular exam- Primary Pre-operative cardiovascular examination [facility]* Diagnosis Preop testing- Primary Unspecified pre-operative examination [facility] Diagnosis Pre-op testing- Primary Unspecified pre-operative examination [facility] Diagnosis Constipation, unspecified constipation type- Primary [facility] Diagnosis Class 3 severe obesity with body mass index (BMI) of 60.0 to 69.9 in adult ([facility] Primary Class 3 severe obesity due to excess calories with serious comorbidity and body mass index (BMI) of 60.0 to 69.9 in adult ([facility]) History of pulmonary embolism Personal history of venous thrombosis and embolism Acute post-operative pain [facility] Diagnosis Dietary counseling and surveillance- Primary Morbid obesity ([facility]) Morbid obesity Malnutrition following gastrointestinal surgery Other and unspecified postsurgical nonabsorption Postsurgical malabsorption [facility] Diagnosis LUCIANO on CPAP- Primary H/O gastric bypass Postoperative malabsorption Malnutrition following gastrointestinal surgery Other and unspecified postsurgical nonabsorption [facility] Diagnosis Morbid obesity with BMI of 60.0-69.9, adult ([facility] Primary Dietary counseling and surveillance- Primary Malnutrition following gastrointestinal surgery Other and unspecified postsurgical nonabsorption Postsurgical malabsorption H/O gastric bypass [facility] Diagnosis Dietary counseling and surveillance- Primary Malnutrition following gastrointestinal surgery Other and unspecified postsurgical nonabsorption Postsurgical malabsorption H/O gastric bypass documented [facility] Diagnosis Malnutrition following gastrointestinal surgery- Primary Other and unspecified postsurgical nonabsorption Postsurgical malabsorption H/O gastric bypass B12 deficiency documented [facility] Diagnosis Malnutrition following gastrointestinal surgery- Primary Other and unspecified postsurgical nonabsorption Postsurgical malabsorption H/O gastric bypass History of anemia Personal history of diseases of blood and blood-forming organs documented [facility] Diagnosis History of Bonnie-en-Y gastric bypass- Primary Postsurgical malabsorption Malnutrition following gastrointestinal surgery Other and unspecified postsurgical nonabsorption History of anemia Personal history of diseases of blood and blood-forming organs B12 deficiency [facility] Diagnosis Missed menses , unspecified gestational age ([facility]) Encounter for supervision of normal first in first trimester ([facility]) Nausea Nausea alone [facility] instructionsNot on filedocumented in this encounterProMedica [...] encounterProMedica Health SystemInstructionsNot on filedocumented in this encounterProJoint [facility] SystemReason for visit Narrative* Consultation (Routine) - Pending Review Specialty Diagnoses / Procedures Referred By Temi devi Referred To Contact Nutrition Diagnoses Morbid obesity ([facility]) Pre-bariatric surgery nutrition evaluation Preop testing Tonia Manzo MD [address] , [address] [address] Referral ID Status Reason Start Date Expiration Date Visits Requested Visits Authorized [id number] Pending Review Specialty Services Required 02/22/2023 02/22/2024 12 12 [facility] Consultation (Routine) - Pending Review Specialty Diagnoses / Procedures Referred By Temi devi Referred To Contact Nutrition Diagnoses Malnutrition following gastrointestinal surgery Postsurgical malabsorption Tonia Manzo MD [address] [facility] [address] [place] [address] Referral ID Status Reason Start Date Expiration Date Visits Requested Visits Authorized [id number] Pending Review Specialty Services Required 05/01/2024 05/01/2025 12 12 [facility] Summary Purpose Family History No Family History Records FoundNo Family History Records FoundNo Family History Records FoundNo Family History Records FoundNo Family History Records FoundNo Family History Records FoundNo Family History Records FoundNo Family History Records Found Advance Directives Latest Code Status on File Code Status [...] Referral Specialty Diagnoses / Procedures Referred By Temi devi Referred To Contact Procedures Discharge Follow-Up Moriah Guthrie PA-C [address] [facility] [address] [place] [address] Referral ID Status Reason Start Date Expiration Date V isits Requested Visits Authorized [id number] Pending Review 04/24/2024 04/24/2025 1 1 Specialty Diagnoses / Procedures Referred By Contac t Referred To Contact Procedures No dressing needed Moriah Guthrie PA-C [address] [address] Referral ID Status Reason Start Date Expiration Date V isits Requested Visits Authorized [id number] Pending Review 04/24/2024 04/24/2025 1 1 Specialty Diagnoses / Procedures Referred By Contac t Referred To Contact Procedures Hygiene Moriah Guthrie PA-C [address] [address] Referral ID Status Reason Start Date Expiration Date V isits Requested Visits Authorized [id number] Pending Review 04/24/2024 04/24/2025 1 1 Specialty Diagnoses / Procedures Referred By Contac t Referred To Contact Procedures Adult diet Moriah Guthrie PA-C [address] [address] Referral ID Status Reason Start Date Expiration Date V isits Requested Visits Authorized [id number] Pending Review 04/24/2024 04/24/2025 1 1 Additional Source Comments INFORMATION SOURCE (unrecogn ized section and content) DATE CREATED AUTHOR 01/10/2019 [facility] DATE CREATED AUTHOR AUTHOR'S ORGANIZ ATION 12/06/2021 [facility] DATE CREATED AUTHOR AUTHOR'S ORGANIZ ATION 01/16/2022 [facility] DATE CREATED AUTHOR AUTHOR'S ORGANIZ ATION 11/16/2022 [facility] DATE CREATED AUTHOR AUTHOR'S ORGANIZ ATION 09/30/2023 [facility] DATE CREATED AUTHOR AUTHOR'S ORGANIZ ATION 01/02/2025 [facility] DATE CREATED AUTHOR AUTHOR'S ORGANIZ ATION 01/04/2025 [facility] DATE CREATED AUTHOR AUTHOR'S ORGANIZ ATION 03/24/2025 [facility] Reason for Visit (unrecogniz ed section and content) Reason Comments Chest Pain pressure in center o f chest. gave on 11/21/21. Hypertension on 200 mg labetalol daily. Reason Comments Hypertension Specialty Diagnoses / Procedures Referred By Temi devi Referred To Contact Diagnoses Preeclampsia in period Isidro Chester DO [address] [address] [facility] [address] [place] [address] Referral ID Status Reason Start Date Expiration Date Visits Re quested Visits Authorized 1 1 Reason Comments Chest Pain onset this morning, was admitted for preeclampsia Shortness of Breath Specialty Diagnoses / Procedures Referred By Temi devi Referred To Contact Diagnoses Right pulmonary embolus (HCC) Acute pulmonary embolism, unspecified pulmonary embolism type, unspecified whether acute cor pulmonale present (HCC) Marilee Medina MD [address] [place] [address] [facility] [address] [place] [address] Referral ID Status Reason Start Date Expiration [...] Referred To Contact Nutrition Diagnoses Morbid obesity ([facility]) Pre-bariatric surgery nutrition evaluation Preop testing Tonia Manzo MD [address] 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 clerk-ref from Maria Elena Manzo MD for pre op for bariatric surgery-patient has no date/time/place set for surgery-never seen cardiology-no covid-no cardiac devices-echo/labs done at [facility] 07/05-sched wt pt Specialty Diagnoses / Procedures Referred By Temi devi Referred To Contact Cardiology Diagnoses Preop testing Tonia Manzo MD [address], [place] [address] [place] [address] [facility] [address] [place] [address] Referral ID Status Reason Start Date Expiration Date Visits Requested Visits Authorized [id number] Pending Review Specialty Services Required 3 07/22/2024 1 1 Referral ID Status Reason Start Date Expiration Date V isits Requested Visits Authorized [id number] Closed Specialty Services Required 02/22/2023 02/22/2024 12 12 Reason Comments Pre-op Exam Preop Bariatric surg Dr. Shirley Reason Comments Consult Sign consent Specialty Diagnoses / Procedures Referred By Temi devi Referred To Contact Diagnoses MORBID OBESITY/HYPERTENSION Procedures AR LAP GASTRIC BYPASS/BONNIE-EN-Y DAVINCI DV5 BYPASS GASTRIC BONNIE-EN Y Tonia Manzo MD [address] , [place] [place] [address] Referral ID Status Reason Start Date Expiration Date Visits Re quested Visits Authorized [id number] 1 1 Reason Onset Date Comments bloody mocus 04/27/2024 Reason Comments Post-op 1 week RYGB; feels t ired;40 ounces of fluids; 2 protein shakes a day, struggles with the evening protein shake Reason Comments Patient Education Pre op bariatric sissy hannah education class Reason Comments Injection B12 lesson Reason Comments Follow-up LATE 6 MONTH bypass Anais 04/23/24 Injection B12 INJECTION Reason Comments Routine Visit Scheduled Active and Recently Administ ered Medications (unrecognized section and content) Medication Order 11/24/2021 11/25/202111/26/2021 acetaminophen (TYLENOL) tablet 1,000 mg (COMPLETED) 1,000 [...] 6000 mg 20 grams = 20,000 mg 221 (New Bag - Provider: Sabina Glover RN)2223 [...] at 0900 0939 (Given - Provider: Gale Saravia, LEANDRO) 0847 (Given - Provider: Liyah Asher, LEANDRO) 0900 (Given - Provider: Nilam Montes, LEANDRO) ferrous sulfate (FE TABS 325) EC tablet 325 mg 325 mg, Oral, DAILY WITH BREAKFAST, First dose on 11/26/21 at 0800 0938 (Given - Provider: Gale Saravia, LEANDRO) 0847 (Given - Provider: Liyah Asher, LEANDRO) 0759 (Given - Provider: Nilam Montes, LEANDRO) [...] shift nurse) 0407 (Given - Provider: May Malone RN)1159 (Given - Provider: Liyah Asher RN) labetalol (NORMODYNE) tablet 600 mg 600 mg, Oral, EVERY 6 HOURS, First dose (after last modification) on Sun11/28/21 at 1600, STAT 1539 (Given - Provider: Liyah Asher, LEANDRO)2157 (Given - Provider: Emma Borja RN) 0346 (Given - Provider: Emma Borja RN)0956 (Given - Provider: Nilam Montes RN)1600 (Due)2200 (Due) labetalol (NORMODYNE;TRANDATE) injection 20 mg (COMPLETED) 20 mg, IntraVENous, ONCE, On 11/27/21 at 1100, For 1 dose 1041 (Given - Provider: Gale Saravia RN) labetalol (NORMODYNE;TRANDATE) injection 20 mg (COMPLETED) 20 mg, IntraVENous, ONCE, On Sun11/27/21 at 1730, For 1 dose 1712 (Given - Provider: Gale Saravia RN) labetalol (NORMODYNE;TRANDATE) injection 20 mg (COMPLETED) 20 mg, IntraVENous, ONCE, On Sun11/28/21 at 0315, For 1 dose 0254 (Given - Provider: May Malone RN) NIFEdipine (PROCARDIA XL) extended release tablet 30 mg (CANCELED) 30 mg, Oral, DAILY, First dose on Sun11/27/21 at 0900, Do not crush or break. 938 (Given - Provider: Gale Saravia RN) NIFEdipine (PROCARDIA XL) extended release tablet 30 mg (COMPLETED) 30 mg, Oral, ONCE, On Sun11/27/21 at 2100, For 1 dose, Do not crush or break. 2053 (Given - Provider: Radha Correa RN) NIFEdipine (PROCARDIA XL) extended release tablet 90 mg 90 mg, Oral, DAILY, First dose on Sun11/28/21 at 0900, Do not crush or break. 0810 (Given - Provider: Liyah Asher RN) 0900 (Given - Provider: Nilam Montes, LEANDRO) vitamin plus iron 29-1 MG tablet 1 tablet 1 tablet, Oral, DAILY, First dose on 11/26/21 at 0900 0938 (Given - Provider: Gale Saravia RN) 0847 (Given - Provider: Liyah Asher RN) 0900 (Given - Provider: Nilam Montes, LEANDRO) sodium chloride flush 0.9 % injection 5-40 [...] mL/lumen 1053 (Given - Provider: Gale Saravia RN)2054 (Given - Provider: Radha Correa RN) 0848 (Given - Provider: Liyah Asher, LEANDRO)2111 (Given - Provider: Emma Borja, LEANDRO) 0902 (Given - Provider: Nilam Montes, LEANDRO)2100 (Due) [...] Liyah Asher RN)2111 (Given - Provider: Emma Borja RN) 0713 (Given - Provider: Nilam Montes, LEANDRO) [...] 2324 0013 (Given - Provider: Soco Navarro, LEANDRO) hydrOXYzine (ATARAX) tablet 25 mg 25 mg, Oral, 3 TIMES DAILY PRN, Itching, Anxiety, Starting on 11/27/21 at 2038 2054 (Given - Provider: Radha Correa, LEANDRO) ibuprofen (ADVIL;MOTRIN) tablet 600 mg 600 mg, Oral, EVERY 6 HOURS PRN, Pain Mild (1-3), Starting on 11/26/21 at 0401, Do not crush or chew. 0626 (Given - Provider: May Malone, LEANDRO)1400 (Given - Provider: Liyah Asher, LEANDRO) melatonin tablet 5 mg 5 mg, Oral, NIGHTLY PRN, Sleep, Starting on Sun11/28/21 at 2100 2200 (Given - Provider: Emma Borja, LEANDRO) sodium chloride flush 0.9 % injection 5-40 [...] (NORMODYNE;TRANDATE) 5 MG/ML injection (COMPLETED) Starting on Sun11/27/21 at 1722, For 1 dose, Gale Saravia: cabinet override 1724 (Given - Provider: Gale Saravia, RN) Scheduled Medication Order 11/29/2021 11/30/2021 12/01/2021 [...] dose on Sun12/01/21 at 0015, Until Discontinued 0124 (Given - Provid er: Afsaneh Oviedo RN)0856 (Given - Provider: Stacy Conley RN)1238 (Not Given - Provider: Stacy Conley RN - Reason: Patient/family refused)1511 (Given - Provider: Stacy Conley RN)2100 (Due) morphine (PF) injection 2 mg (COMPLETED) [...] 90 mg, Oral, DAILY, First dose on Sun12/01/21 at 0900, Until Discontinued, Do not crush [...] Stacy Conley, LEANDRO)0853 (Stopped - Provider: Stacy Conley RN) PRN Medication Order 11/29/2021 11/30/2021 12/01/2021 0.9 [...] Oral, DAILY WITH DINNER, First dose on Sun12/22/21 at 0800, Until Discontinued
ANTICOAGULANT! Doses greater [...] Sun04/23/24 at 0800, For 1 dose, Pre-op 829 (Given - Provider: Essence Schulz RN) aprepitant (EMEND) capsule 40 mg (COMPLETED) 40 mg, oral, Once, On Sun04/23/24 at 0800, For 1 dose, Pre-op 830 (Given - Provider: Essence Schulz RN) busPIRone (BUSPAR) tablet 15 mg 15 mg, oral, 2 times daily, First dose on Sun04/23/24 at 2100, Look-alike/sound-alike medication - verify indication for use. Avoid grapefruit juice. 2124 (Given - Provider: Macrina Armenta RN) 836 (Given - Provider: Olga Montana RN) ceFAZolin (ANCEF) 3,000 mg in sodium chloride 0.9 % 100 mL IVPB-MBP 3,000 mg, intravenous, at 200 mL/hr, Administer over 30 Minutes, Once, On Sun04/23/24 at 0845, For 1 dose, ADD-VANTAGE/MBP- Discard 24 hours after activating; dissolve drug prior to administration, Indication: Surgical prophylaxis 45 (Due) citalopram (CeleXA) tablet 20 mg 20 mg, oral, Nightly, First dose on Sun04/23/24 at 2200, Look-alike/sound-alike medication - verify indication for use., Indications: anxiety with depression 2124 (Given - Provider: Macrina Armenta RN) enoxaparin (LOVENOX) syringe 40 mg 40 mg, subcutaneous, Every 12 hours scheduled, First dose on Sun04/24/24 at 0600, BMI greater than 40 Look-alike/sound-alike medication - verify indication for use. 06 (Given - Provid er: Macrnia Armenta RN) heparin (porcine) injection 5,000 Units [...] Olga Montana, LEANDRO)1310 (Given - Provider: Olga Montana RN) ketorolac (TORADOL) injection 15 mg 15 mg, [...] Armenta, RN) 0324 (Given - Provider: Macrina Armenta, LEANDRO)0837 (Given - Provider: Olga Montana, LEANDRO) lisinopriL (PRINIVIL,ZESTRIL) tablet 10 mg 10 mg, oral, Daily, First dose on Belkis 04/24/24 at 0900, Look-alike/sound-alike medication - verify indication for use. 0837 (Given - Provid er: Olga Montana RN) pantoprazole (PROTONIX) EC tablet 40 mg 40 mg, oral, Daily, First dose on Sun04/23/24 at 1500, Look-alike/sound-alike medication - verify indication for use. If patient is receiving enteral feeding, consider alternative PPI or continue IV pantoprazole until the delayed-release tablet can be taken orally, Indication: GERD 2124 (Given - Provider: Macrina Armenta RN) 0613 (Given - Provider: Macrina Armenta [...] 1415 1444 (New Bag - Provider: Staci Dey, RN)1849 (Rate/Dose Verify - Provider: Staci Dey RN)2009 (Rate/Dose Verify - Provider: Macrina Armenta, RN)2240 (Rate/Dose Verify - Provider: Macrina Armenta, RN) 0012 (New Bag - Provider: Cherise Choudhury, RN)0955 (New Bag - Provider: Olga Montana, LEANDRO) PRN Medication Order 04/22/2024 04/23/2024 04/24/2024 albuterol (PROVENTIL,VENTOLIN) nebulizer solution 2.5 mg 2.5 mg, nebulization, Every 6 hours PRN, wheezing, shortness of breath, Starting on Sun04/23/24 at 1412, Implement INPATIENT/ED Bronchodilator Clinical Practice Guidelines? Yes, Document: [email or web address]\[email or web address] IC_Reference\Orders\Respirat ory Care Guidelines\CPG Bronchodilator 2020.pdf bupivacaine PF (MARCAINE) 0.5 % (5 mg/mL) [...] for use. 2023 (Given - Provider: Macrina rAmenta RN) oxyCODONE-acetaminophen (PERCOCET) 5-325 mg per tablet 2 tablet 2 tablet, oral, Every 4 hours PRN, severe pain - pain scale 7-10, Starting on Sun04/23/24 at 1412, Look-alike/sound-alike medication - verify indication for use. 1309 (Given - Provid er: Olga Montana RN) [...] Care Teams (unrecognized sec tion and content) Head Charger Relationship Specialty Start Date End Date Riddhi Plata MD [address] [facility] [place] [address] PCP - General Family Medicine 01/16/23 Head Charger Relationship Specialty Start Date End Date Riddhi Plata MD [address] [facility] [place] [address] PCP - General Family Medicine 01/16/23 Head Charger Relationship Specialty Start Date End Date Riddhi Plata MD [address] [facility] [place] [place] [address] PCP - General Family Medicine 01/16/23 Head Charger Relationship Specialty Start Date End Date Riddhi Plata MD [address] [facility] [place] [address] PCP - General Family Medicine 01/16/23 Head Charger Relationship Specialty Start Date End Date Riddhi Plata MD [address] [facility] [address] PCP - General Family Medicine 06/27/22 Head Charger Relationship Specialty Start Date End Date Riddhi Plata MD [address] [facility] [address] PCP - General Family Medicine 12/09/23 Head Charger Relationship Specialty Start Date End Date Riddhi Plata MD [address] [facility] [address] PCP - General Family Medicine 12/09/23 Head Charger Relationship Specialty Start Date End Date Riddhi Plata MD [address] [facility] [place] [address] PCP - General Family Medicine 06/27/22 Head Charger Relationship Specialty Start Date End Date Riddhi Plata MD [address] [facility] [address] PCP - General Family Medicine 06/27/22 Head Charger Relationship Specialty Start Date End Date Riddhi Plata MD [address] [facility] [address] PCP - General Family Medicine 06/27/22 Head Charger Relationship Specialty Start Date End Date Riddhi Plata MD [address] [facility] [address] PCP - General Family Medicine 06/27/22 Head Charger Relationship Specialty Start Date End Date Riddhi Plata MD [address] [place] [address] PCP - General Family Medicine 06/27/22 Head Charger Relationship Specialty Start Date End Date Riddhi Plata MD [address] [place] [address] PCP - General Family Medicine 12/09/23 Head Charger Relationship Specialty Start Date End Date Riddhi Plata MD [address] [place] [address] PCP - General Family Medicine 12/09/23 Head Charger Relationship Specialty Start Date End Date Riddhi Plata MD [address] [place] [address] PCP - General Family Medicine 12/09/23 Head Charger Relationship Specialty Start Date End Date Riddhi Plata MD [address] [place] [address] PCP - General Family Medicine 12/09/23 Head Charger Relationship Specialty Start Date End Date Riddhi Plata MD [address] [place] [address] PCP - General Family Medicine 06/27/22 Head Charger Relationship Specialty Start Date End Date Riddhi Plata MD [address] [place] [address] PCP - General Family Medicine 12/09/23 Head Charger Relationship Specialty Start Date End Date Riddhi Plata MD [address] [place] [address] PCP - General Family Medicine 06/27/22 Head Charger Relationship Specialty Start Date End Date Riddhi Plata MD [address] [place] [address] PCP - General Family Medicine 12/09/23 Head Charger Relationship Specialty Start Date End Date Riddhi Plata MD [address] [place] [address] PCP - General Family Medicine 12/09/23 Head Charger Relationship Specialty Start Date End Date Riddhi Plata MD PCP - General Family Medicine 12/09/23 Head Charger Relationship Specialty Start Date End Date Riddhi Plata MD PCP - General Family Medicine 12/09/23 Head Charger Relationship Specialty Start Date End Date Riddhi Plata MD PCP - General Family Medicine 12/09/23 Head Charger Relationship Specialty Start Date End Date Riddhi Plata MD PCP - General Family Medicine 12/09/23 Head Charger Relationship Specialty Start Date End Date Riddhi Plata MD PCP - General Family Medicine 12/09/23 Head Charger Relationship Specialty Start Date End Date Riddhi Plata MD PCP - General Family Medicine 12/09/23 Head Charger Relationship Specialty Start Date End Date Riddhi Plata MD PCP - General Family Medicine 12/09/23 Head Charger Relationship Specialty Start Date End Date Riddhi Plata MD PCP - General Family Medicine 12/09/23 Head Charger Relationship Specialty Start Date End Date Riddhi Plata MD [address] [place] [address] PCP - General Family Medicine 01/16/23 FOR [...] BE BASED ON THE PRIMARY CLINICAL RECORDS. [employer] [facility]. provides no warranty or guarantee of the accuracy or completeness of information in this document.
--- NOTE | 2025-04-12 19:11 | PC.NURSE ---
Patient resting on cot, family at bedside. She has had headache since , has taken Tylenol with no relief. She had preeclampsia with last and was worried because her BP was elevated at home today. BP was WNL during triage today.
[2025-04-12 19:52] LABS: Hematocrit 38.1 % (36.0-48.0); Hemoglobin 13.2 g/dL (12.0-16.0); Immature Granulocytes Abs Auto 0.04 10^3/uL (0.00-0.03); Immature Granulocytes Pct Auto 0.5 % (0.0-0.5); Lymphocytes Absolute Auto 2.3 10^3/uL (1.2-3.8); Mean Corpuscular HGB Conc 34.6 g/dL (29.9-35.2); Mean Corpuscular Hemoglobin 30.1 pg (26.7-34.0); Mean Corpuscular Volume 86.8 fL (81.0-99.0); Platelet Count 253 10^3/uL (150-450); Red Blood Count 4.39 10^6/uL (4.20-5.40); White Blood Count 8.3 10^3/uL (4.0-11.0)
[2025-04-12 19:53] LABS: Glucose Urine UA NEGATIVE (NEGATIVE)
[2025-04-12] MEDS: METOCLOPRAMIDE HCL 10 MG/2 ML VIAL 5 MG IVP (19:56)
[2025-04-12 20:09] LABS: Alanine Aminotransferase 25 U/L (14-59); Albumin Globulin Ratio 0.7; Albumin Level 3.2 g/dL (3.4-5.0); Alkaline Phosphatase 92 U/L (46-116); Anion Gap 13.0; Aspartate Amino Transferase 11 U/L (15-37); Blood Urea Nitrogen 6.0 mg/dL (7.0-18.0); Calcium 9.3 mg/dL (8.5-10.1); Carbon Dioxide 23.7 mmol/L (21.0-32.0); Chloride 102 mmol/L (98-107); Estimated GFR (African America >60 (>=60 mL/min/1.73m^2); Estimated GFR (Non-African Ame >60 (>=60 mL/min/1.73m^2); Globulin 4.3 g/dL; Glucose 91 mg/dL (74-106); Potassium 3.7 mmol/L (3.5-5.1); Sodium 135 mmol/L (136-145); Total Protein 7.5 g/dL (6.4-8.2)
--- NOTE | 2025-04-12 20:12 | ED_ITS ---
HPI HPI - General Adult General Chief complaint: Headache Stated complaint: headache/hypertension Time Seen by Provider: 04/12/25 18:55 Source: patient and family Mode of arrival: walk-in Limitations: no limitations History of Present Illness HPI narrative: 1-year-old female presents to the ER being 13 weeks . She is G3, P2 with a history of preeclampsia. She states she today started to develop a headache in the frontal aspect of her head she describes it as throbbing. She does have a history of migraines but does not typically take anything regularly for them. She states she did have a couple emesis episodes as well. She did have her normal onset of this headache and it was not sudden onset nor is it the worst headache of her life. Patient denies any chest pain shortness of breath abdominal pain vaginal discharge or bleeding. She is urinating normally. She states at home she took her blood pressure and systolic was in the 160s. She did reach out to her electrician helper [employer] who recommended she come to the ED for evaluation. Her blood pressure here is 142/88. Related Data Home Medications ?Medication ?Instructions ?Recorded ?Confirmed albuterol sulfate 90 mcg/actuation 1 inh inhalation Q6 H PRN shortness 10/27/23 04/12/25 aerosol inhaler of breath or wheezing buspirone 15 mg tablet 30 mg PO BIDWM PRN anxiety 0 10/27/23 04/12/25 citalopram 20 mg tablet 20 mg PO DAILY 10/27/23 0812/02 omeprazole 20 mg capsule,delayed 20 mg PO DAILY 04/12/25 release cyanocobalamin (vitamin B-12) 1,000 mcg IM .MONTHLY 04/12/25 1,000 mcg/mL injection solution folic acid 1 mg tablet 04/12/25 Allergies Allergy/AdvReac Type Severity Reaction Status Date / Time sumatriptan (From Imitrex) Allergy Severe Difficulty Verified 04/12/25 18:48 Breathing Opioid HPI Opioid Management Most Recent Opioid Data: Ur Phencyclidine Scrn, (NEGATIVE) Negative , 07:56 PFSH PFSH Social History Little interest or pleasure in doing things: not at all Feeling down, depressed, or hopeless: not at all Exam Constitutional Vital Signs, click to edit/add: Last Vital Signs Temp 98 F 04/12/25 18:48 Pulse 61 04/12/25 18:48 Resp 18 04/12/25 18:48 BP 116/70 04/12/25 21:06 Pulse Ox 100 04/12/25 18:48 O2 Del Method Room Air 04/12/25 18:48 Documenting provider has reviewed patient's vital signs: yes Common normals: no apparent distress General appearance: cooperative, comfortable and well developed HENMT Common normals: normocephalic and head/scalp atraumatic Head and scalp: normal to inspection Tympanic membrane: TMs normal bilaterally Mouth: oral and palatal mucosa normal, lip normal and tongue normal Throat: posterior oropharynx normal and tonsils normal Eye Common normals: PERRL, EOMs intact bilaterally and conjunctivae normal Conjunctiva: conjunctiva(e) normal Pupil: PERRL and accommodation reflex normal Respiratory Common normals: normal respiratory effort, no retractions and clear to auscultation bilaterally Cardio Common normals: regular rate, regular rhythm, S1 normal heart sound, S2 normal heart sound, no murmurs and peripheral pulses 2+ throughout GI Common normals: Normal to inspection, nondistended, normoactive bowel sounds present, soft to palpation and non-tender Neuro Keegan Coma Scale: document GCS findings Common normals: oriented x3 and CN's II-XII intact bilaterally Sensorium/orientation: awake, alert and oriented to person Meningeal signs: no meningeal signs Speech: speech normal Gait (neuro): normal gait Sensory exam: extremities Psych Common normals: mental status grossly normal Appearance: grossly normal Attitude: calm Course Vital Signs Vital signs: Vital Signs Temperature 98 F 04/12/25 18:48 Pulse Rate 61 04/12/25 18:48 Respiratory Rate 18 04/12/25 18:48 Blood Pressure 142/88 H 04/12/25 18:48 Pulse Oximetry 100 04/12/25 18:48 Oxygen Delivery Method Room Air 04/12/25 18:48 Temperature 98 F 04/12/25 18:48 Pulse Rate 61 04/12/25 18:48 Respiratory Rate 18 04/12/25 18:48 Blood Pressure 116/70 04/12/25 21:06 Pulse Oximetry 100 04/12/25 18:48 Oxygen Delivery Method Room Air 04/12/25 18:48 Medical Decision Making MDM Narrative Medical decision making narrative: 30-year-old female presents to the ER being 13 weeks . She is G3, P2 with a history of preeclampsia. She states she today started to develop a headache in the frontal aspect of her head she describes it as throbbing. She does have a history of migraines but does not typically take anything regularly for them. She states she did have a couple emesis episodes as well. She did have her normal onset of this headache and it was not sudden onset nor is it the worst headache of her life. Patient denies any chest pain shortness of breath abdominal pain vaginal discharge or bleeding. She is urinating normally. She states at home she took her blood pressure and systolic was in the 160s. She did reach out to her electrician helper [employer] who recommended she come to the ED for evaluation. Her blood pressure here is 142/88. Patient's exam patient is alert and oriented no acute distress. She is resting comfortably in her bed. Neurologically patient is intact. Pupils are equal and reactive good extraocular movements. HEENT exam is unremarkable heart lung soun ds are unremarkable abdomen is soft and nontender. Patient is mentating at baseline. She is pleasant and interactive. Patient's nausea and headache was treated with Reglan and Benadryl. Labs were obtained. She does not have thrombocytopenia no leukocytosis, no proteinuria, Patient's blood pressure was checked several other times. She had her final reading was 116/70. She had another reading in the 120 systolic. On reevaluation patient states she was feeling much better. She was resting comfortably in her room she was eating and drinking. She states her headache is completely resolved. She and her partner seem to be very relieved of the blood pressure levels as well as her lab values that were nonconcerning. I strongly advise she follow-up with her OB Dr. Morales. She will return with any worse or concerning symptoms. Both her and her partner understand all her discharge instructions and will follow-up as discussed Medical Records Medical records reviewed: Yes I reviewed the patient's medical records Lab Data Lab results reviewed: Yes I reviewed the patient's lab results Labs: Lab Results 04/12/25 04/12/25 Range/Units 19:25 19:35 WBC 8.3 (4.0-11.0) 10^3/uL RBC 4.39 (4.20-5.40) 10^6/uL Hgb 13.2 (12.0-16.0) g/dL Hct 38.1 (36.0-48.0) % MCV 86.8 (81.0-99.0) fL MCH 30.1 (26.7-34.0) pg MCHC 34.6 (29.9-35.2) g/dL RDW 13.6 (11.0-15.0) % Plt Count 253 (150-450) 10^3/uL MPV 10.0 (9.5-13.5) fL Neut % (Auto) 67.0 (43.0-75.0) % Lymph % (Auto) 27.3 (20.5-60.0) % [place] % (Auto) 4.0 (1.7-12.0) % Eos % (Auto) 0.7 L (0.9-7.0) % Baso % (Auto) 0.5 (0.2-2.0) % Neut # (Auto) 5.6 (1.4-6.5) 10^3/uL Lymph # (Auto) 2.3 (1.2-3.8) 10^3/uL [place] # (Auto) 0.3 (0.3-0.8) 10^3/uL Eos # (Auto) 0.1 (0.0-0.7) 10^3/uL Baso # (Auto) 0.0 (0.0-0.1) 10^3/uL Abs Immat Gran (auto) 0.04 H (0.00-0.03) 10^3/uL Imm/Tot Granulo (auto) 0.5 (0.0-0.5) % Sodium 135 L (136-145) mmol/L Potassium 3.7 (3.5-5.1) mmol/L Chloride 102 (98-107) mmol/L Carbon Dioxide 23.7 (21.0-32.0) mmol/L Anion Gap 13.0 BUN 6.0 L (7.0-18.0) mg/dL Creatinine 0.45 L (0.55-1.02) mg/dL Est GFR ( Amer) >60 (>=60 mL/min/1.73m^2) Est GFR (Non-Af Amer) >60 (>=60 mL/min/1.73m^2) BUN/Creatinine Ratio 13.3 Glucose 91 (74-106) mg/dL Calcium 9.3 (8.5-10.1) mg/dL Total Bilirubin 0.4 (0.2-1.0) mg/dL AST 11 L (15-37) U/L ALT 25 (14-59) U/L Alkaline Phosphatase 92 (46-116) U/L Total Protein 7.5 (6.4-8.2) g/dL Albumin 3.2 L (3.4-5.0) g/dL Globulin 4.3 g/dL Albumin/Globulin Ratio 0.7 Urine Color Yellow (YELLOW) Urine Clarity Slightly cloudy A (CLEAR) Urine pH 6.0 (5.0-9.0) Ur Specific Arnold 1.020 (1.005-1.025) Urine Protein Negative (NEG/TRACE) mg/dL Urine Glucose (UA) Negative (NEGATIVE) mg/dL Urine Ketones Negative (NEGATIVE) mg/dL Urine Occult Blood Negative (NEGATIVE) Urine Nitrite Negative (NEGATIVE) Urine Bilirubin Negative (NEGATIVE) Urine Urobilinogen 2.0 A (0.2-1.0) EU/dL Ur Leukocyte Esterase Small A (NEGATIVE) Discharge Plan Discharge Chief Complaint: Headache Clinical Impression: Headache, History of maternal hypertension Patient Disposition: Home, Self-Care Time of Disposition Decision: 21:20 Condition: Good Prescriptions / Home Meds: No Action albuterol sulfate 90 mcg/actuation HFA aerosol inhaler 1 inh INHALATION Q6H PRN (Reason: shortness of breath or wheezing) buspirone 15 mg tablet 30 mg PO BIDWM PRN (Reason: anxiety) citalopram 20 mg tablet 20 mg PO DAILY omeprazole 20 mg capsule,delayed release(DR/EC) 20 mg PO DAILY cyanocobalamin (vitamin B-12) 1,000 mcg/mL solution 1,000 mcg IM .MONTHLY folic acid 1 mg tablet Print Language: [place] Instructions: General Headache (ED), Hypertension During (ED) Referrals: Bin Morales DO [Physician, [employer]] - As soon as possible Referral Note: Call office tomorrow for follow up. JESSICA MARISCAL [Primary Care Provider, Family Practice] - 1 week Discharge Date/Time: 04/12/25 21:31
[2025-04-12] MEDS: DIPHENHYDRAMINE HCL 50 MG/ML VIAL 25 MG IVP (20:23)
[2025-04-12 20:30] VITALS: BP 123/84
[2025-04-12 21:06] VITALS: BP 116/70
== END 2025-04-12 21:31 | disposition home or self-care (01) ==
PROVIDERS: Physician Assistant; Emergency Provider Emergency Medicine; PCP Family Medicine
DX: O26.891 Other specified pregnancy related conditions, first trimester (principal); R51.9 Headache, unspecified; Z3A.13 13 weeks gestation of pregnancy
CPT/HCPCS: 36415; 80053; 81003; 85025; 96374; 96375; 99285; J1200; J2765

== ENCOUNTER 2025-06-10 20:30 | Outpatient (REF) | payer OTHER, SELFPAY ==
--- OUTSIDE RECORDS SUMMARY | 2025-05-29 09:30 | XMS_ITS | Encounter Summary ---
Author Organization [place] Address [id number] [address] [place] [address] Care Team Providers Care Director Of Accreditation Name Role Phone Riddhi Plata MD Primary Care Provider Reason for Visit * Diagnostic Imaging (Routine) - Pending Review Specialty Diagnoses / Procedures Referred By Contac t Referred To Contact Maternal and Medicine Diagnoses Screening, , for anatomic survey Procedures US MFM with or without consult US MFM with or without consult Maisha Pratt MD [address] [place] [address] Phone: tel: fax: Maternal- Medicine at [facility] [address] [place] [address] Phone: tel: fax: Referral ID Status Reason Start Date Expiration Date V isits Requested Visits Authorized [id number] Pending Review 04/24/2025 04/24/2026 1 1 Encounter Details Date Type Department Care Team (Latest Contact Info) Description 05/29/2025 9:30 AM EDT - 05/29/2025 11:59 PM EDT Hospital Encounter [facility] - MFM US Imaging [address] [place] [address] Screening, , for anatomic survey Discharge Disposition: Home Social History Tobacco Use Types Packs/Day Years Used Date Smoking Tobacco: Never Smokeless Tobacco: Never Alcohol Use Standard Drinks/Week Comments Not Currently 0 (1 standard drink = 0.6 oz pur e alcohol) social [facility] Utilities Answer Date Recorded In the past 12 months has th e electric, gas, oil, or water company threatened to [...] got money to buy more. Never True 05/29/2025 Within the past 12 months th e food we bought just didn't last and we didn't have money to get more. Never True 05/29/2025 Purpose - Life Answer Date Recorded Purpose and direction in life Unknown Estimated Date of Delivery Comme nts Yes 10/16/2025 Based on last me nstrual period of 01/09/2025 Sex and Gender Information Value Date Recorded Sex Assigned at Female 07/30/2022 9:31 PM EST Legal Sex Female 11:49 AM EDT Gender Identity Female 07/30/2022 9:31 PM EST Sexual Orientation Straight 07/30/2022 9: 31 PM EST documented as of this encounter Medications at Time of Discharge albuterol (PROVENTIL HFA;VENTOLIN HFA) 90 mcg/actuation inhalerIndications:Mi ld intermittent asthma, unspecified whether complicated Inhale 2 puffs every 4 (four) hours as needed for wheezing. 18 g 2 aspirin 81 mgIndications:20 weeks gestation of ,Chronic hypertension affecting Take 1 tablet (81 mg total) by mouth in the morning. 30 tablet 6 5 blood sugar diagnostic stripIndications:20 weeks gestation of ,History of gestational diabetes in prior , currently Check fingersticks 4 times daily, fasting and 1 hour after the start of a meal 100 strip 1 5 busPIRone (BUSPAR) 15 mg tablet Take 1 tablet (15 mg total) by mouth 2 (two) times a day as needed. citalopram (CeleXA) 20 mg tabletIndications:anx iety with depression Take 1 tablet (20 mg total) by mouth nightly Indications: anxiousness associated with depression. cyanocobalamin (VITAMIN B-12) 1,000 mcg/mL injectionIndications: History of Arlene-en-Y gastric bypass,Postsurgical malabsorption,Malnutr ition following gastrointestinal surgery,B12 deficiency Inject 1 mL (1,000 mcg total) into the appropriate muscle every 30 (thirty) days. 3 mL 1 5 enoxaparin (LOVENOX) 40 mg/0.4 mL syringeIndications:20 weeks gestation of ,History of maternal pulmonary embolus Inject 0.4 mL (40 mg total) under the skin in the morning and at bedtime. 12 mL 11 5 labetaloL (NORMODYNE) 200 mg tablet Take 1 tablet (200 mg total) by mouth 3 (three) times a day. omeprazole (PriLOSEC OTC) 20 mg EC tablet Take 1 tablet (20 mg total) by mouth in the morning. 115/iron/folic acid ( 19 ORAL) Take by mouth. sennosides-docusate sodium (SENOKOT-S) 8.6-50 mg Take 1 tablet by mouth in the morning. 30 tablet 6 5 syringe with needle (BD LUER-KARENA SYRINGE) 3 mL 25 x 1 1/2 syringeIndications:Hi story of Arlene-en-Y gastric bypass,Postsurgical malabsorption,Malnutr ition following gastrointestinal surgery,B12 deficiency 1 SYRG by miscellaneous route every 30 (thirty) days. 3 each 1 5 ferrous sulfate 325 (65 FE) MG tabletIndications:His tory of Arlene-en-Y gastric bypass,Postsurgical malabsorption,Malnutr ition following gastrointestinal surgery,Iron deficiency Take 1 tablet (325 mg total) by mouth in the morning. 90 tablet 5 06/08/20 25 folic acid (FOLVITE) 1 mg tabletIndications:His tory of Arlene-en-Y gastric bypass,Postsurgical malabsorption,Malnutr ition following gastrointestinal surgery,Folate deficiency Take 1 tablet (1 mg total) by mouth in the morning. 90 tablet 5 06/08/20 25 documented as of this encounter Plan of Treatment Upcoming Encounters Date Type Department Care Team (Late st Contact Info) Description 07/09/2025 9:45 AM EDT Appointment [facility] - [facility] US Imaging [address] [place] [id number] 07/09/2025 11:30 AM EDT Office Visit Maternal- Medicine at [facility] [address] [place] [id number] Sana Lima MD [address] [place] [address] documented as of this encounter Goals Goal Patient Goal Type Associated Problems Recent Progress Patient-Stated? Author safe discharge to home General Yes Kate Blanton, RN Note: Evaluation of progress towards goal: safe transition from hospital to home with family support. documented as of this encounter Procedures Procedure Name Priority Date/Time Associated Diagnosis Comments [facility] COMPREHENSIVE ANATOMIC SURVEY Routine 05/29/2025 12:07 PM EDT Screening, , for anatomic survey documented in this encounter Results * US MFM COMPREHENSIVE ANATOMIC SURVEY (05/29/2025 12:07 PM EDT) Anatomical Region Laterality Modality OB-SAP SOLUTION MANAGER CONSULTANT Ultrasound 05/29/2025 10:1 3 AM EDT Narrative 06/01/2025 5:47 PM EDT NAME: TARA PERKINS : 1995 SEX: F Accession Number: [id number] ORDERING PHYSICIAN: MAISHA PRATT REFERRING PHYSICIAN: GONZALEZ PASCAL Coding ----- --------- Procedures [id number]: Ultrasound, uterus, real time with image documentation, and maternal evaluation plus detailed anatomic examination, transabdominal approach;single or first gestation [id number]: Ultrasound, uterus, real time with image documentation, transvaginal Indication ----- --------- Screening for Anatomic Survey , Screening for cervical length , Obesity in , history of gastric bypass , history of PE , History of gestational hypertension , History of prior with gestational diabetes , Supervision of high risk . History ----- --------- OB History 3. Para 2 Children born living ?37w 2 T2L2 Current ----- --------- Cell free DNA low risk analysis Maternal Assessment ----- --------- Physical Exam Height 152 cm, 5 ft. Weight 108 kg, 239 lb. Initial weight 108 kg, 239 lb. BMI 46.68 kg/m . Initial BMI 46.68 kg/m Method ----- --------- Transabdominal and transvaginal ultrasound examination. View: Suboptimal view: limited by position. ----- --------- Wilder . Number of fetuses: 1 Dating ----- --------- LMP on: 01/09/2025 GA by LMP 20 w + 0 d SEBASTIAN by LMP: 10/16/2025 Previous Ultrasound on: 03/20/2025 Type of prior assessment: GA GA at prior assessment date 9 w + 2 d GA by previous U/S 19 w + 2 d SEBASTIAN by previous Ultrasound: 10/21/2025 Ultrasound examination on: 05/29/2025 GA by U/S based upon: AC, BPD, Femur, HC GA by U/S 19 w + 4 d SEBASTIAN by U/S: 10/19/2025 Assigned: based on the LMP, selected on 05/29/2025 Assigned GA (weeks days) 20 w + 0 d Assigned SEBASTIAN: 10/16/2025 General Evaluation ----- --------- Cardiac activity Present. FHR 150 bpm. Presentation: cephalic Placenta: Placental site: anterior, fundal, away from cervical os Umbilical cord: Cord vessels: 3 vessel cord. Insertion site: marginal insertion Amniotic fluid: Amount of AF: normal amount. MVP 4.7 cm Biometry ----- --------- Standard BPD 41.8 mm 18w 5d 7% Hadlock OFD 59.9 mm 20w 5d 75% Natalya HC 164.0 mm 19w 1d 10% Hadlock Cerebellum tr 21.6 mm 20w 3d 86% Hill Nuchal fold 3.4 mm AC 153.8 mm 20w 4d 64% Hadlock Femur 30.9 mm 19w 4d 27% Hadlock Humerus 29.7 mm 19w 5d 45% Natalya HC / AC 1.07 5% Hadlock EFW 324 g 44% Hadlock EFW (lb) 0 lb EFW (oz) 11 oz EFW by: Hadlock (SCS-NP-OG-FL) Extended Tibia 24.7 mm 18w 5d 17% Natalya Civil Engineering Technician 5.8 mm CM 4.6 mm 37% Nicolaides Inner IOD 12.4 mm Outer IOD 29.1 mm Nasal bone 5.7 mm 14% [place] Head / Face / Neck Cephalic index 0.70 <1% Nicolaides Nasal bone: present Extremities / Bony Struc FL / BPD 0.74 84% Hadlock FL / HC 0.19 65% Hadlock FL / AC 0.20 10% Hadlock Other Structures FHR 150 bpm Anatomy ----- --------- The following structures appear normal: Head/Neck: Cranium. Lateral ventricles. Choroid plexus. Midline falx. Cavum septi pellucidi. Cerebellum. Cisterna magna. Parenchyma. Neck. Nuchal fold. Face: Lips. Profile. Nose. Nasal bone. Maxilla. Mandible. Orbits. Heart/Thorax: RVOT view. LVOT view. 3-vessel view. 6-qtoqig-mlvacnz view. Situs. Aortic arch view. Bicaval view. Ductal arch view. Cardiac position. Cardiac axis. Cardiac size. Cardiac rhythm. Diaphragm. Abdomen: Abdom. wall. Cord insertion. Stomach. Kidneys. Bladder. Small bowel. Large bowel. Right renal artery. Left renal artery. Genitals. Extremities/Skeleton: Right upper arm. Right forearm. Right hand. Left upper arm. Left forearm. Left hand. Right upper leg. Right lower leg. Left upper leg. Left lower leg. The following structures could not be adequately visualized: Head / Neck Vermis. Heart / Thorax 4-chamber view. Interventricular septum. Great vessels. The following structures could not be examined: Heart / Thorax Right lung. Left lung. Spine: Cervical spine. Thoracic spine. Lumbar spine. Sacral spine. Extremities / Right foot. Left foot. Skeleton Maternal Structures ----- --------- Uterus Visualized Cervix Visualized Approach - Transvaginal: Cervical length 3.97 cm Right Ovary Not visualized Left Ovary Not visualized Cul de Sac Visualized. No free fluid visualized Impression ----- --------- Single live intrauterine consistent with 20w 0d with an SEBASTIAN of 10/16/2025. Normal growth. EFW measures at the 44%, AC measures at the 64%. Transvaginal cervical length measures 3.97 cm. Amniotic fluid MVP measures 4.7 cm. Marginal cord insertion noted. Recommendations ----- --------- Please see [facility] documentation from today. The patient is scheduled in four to six week(s) to complete anatomic survey. Subsequent follow up or other follow up as clinically determined by primary OB provider unless otherwise specified by [facility]. Results forwarded to ordering provider so they can follow up with the patient as necessary. Procedure Note Maisha Pratt MD - 06/01/2025 NAME: TARA PERKINS : 1995 SEX: F Accession Number: [id number] ORDERING PHYSICIAN: MAISHA PRATT REFERRING PHYSICIAN: GONZALEZ PASCAL Coding ----- --------- Procedures [id number]: Ultrasound, uterus, real time with imagedocumentation, and maternal evaluation plus detailed anatomic examination, transabdominalapproach;single or first gestation [id number]: Ultrasound, uterus, real time with imagedocumentation, transvaginal Indication ----- --------- Screening for Anatomic Survey , Screening for cervical length , Obesity inpregnancy , history of gastric bypass , history of PE , History of gestational hypertension , History of priorpregnancy with gestational diabetes , Supervision of high risk . History ----- --------- OB History 3. Para 2 Children born living ?37w 2 T2L2 Current ----- --------- Cell free DNA low risk analysis Maternal Assessment ----- --------- Physical Exam Height 152 cm, 5 ft. Weight 108 kg, 239 lb. Initial azjdip777 kg, 239 lb. BMI 46.68 kg/m . Initial BMI 46.68 kg/m Method ----- --------- Transabdominal and transvaginal ultrasound examination. View: Suboptimalview: limited by position. ----- --------- Wilder . Number of fetuses: 1 Dating ----- --------- LMP on: 01/09/2025 GA by LMP 20 w + 0 d SEBASTIAN by LMP: 10/16/2025 Previous Ultrasound on: 03/20/2025 Type of prior assessment: GA GA at prior assessment date 9 w + 2 d GA by previous U/S 19 w + 2 d SEBASTIAN by previous Ultrasound: 10/21/2025 Ultrasound examination on: 05/29/2025 GA by U/S based upon: AC, BPD, Femur, HC GA by U/S 19 w + 4 d SEBASTIAN by U/S: 10/19/2025 Assigned: based on the LMP, selected on 05/29/2025 Assigned GA (weeks days) 20 w + 0 d Assigned SEBASTIAN: 10/16/2025 General Evaluation ----- --------- Cardiac activity Present. FHR 150 bpm. Presentation: cephalic Placenta: Placental site: anterior, fundal, away from cervical os Umbilical cord: Cord vessels: 3 vessel cord. Insertion site: marginalinsertion Amniotic fluid: Amount of AF: normal amount. MVP 4.7 cm Biometry ----- --------- Standard BPD 41.8 mm 18w 5d 7% Hadlock OFD 59.9 mm 20w 5d 75% Natalya HC 164.0 mm 19w 1d 10% Hadlock Cerebellum tr 21.6 mm 20w 3d 86% Hill Nuchal fold 3.4 mm AC 153.8 mm 20w 4d 64% Hadlock Femur 30.9 mm 19w 4d 27% Hadlock Humerus 29.7 mm 19w 5d 45% Natalya HC / AC 1.07 5% Hadlock EFW 324 g 44% Hadlock EFW (lb) 0 lb EFW (oz) 11 oz EFW by: Hadlock (PLO-FD-JC-FL) Extended Tibia 24.7 mm 18w 5d 17% Natalya Civil Engineering Technician 5.8 mm CM 4.6 mm 37% Nicolaides Inner IOD 12.4 mm Outer IOD 29.1 mm Nasal bone 5.7 mm 14% [place] Head / Face / Neck Cephalic index 0.70 <1% Nicolaides Nasal bone: present Extremities / Bony Struc FL / BPD 0.74 84% Hadlock FL / HC 0.19 65% Hadlock FL / AC 0.20 10% Hadlock Other Structures FHR 150 bpm Anatomy ----- --------- The following structures appear normal: Head/Neck: Cranium. Lateral ventricles. Choroid plexus. Midline falx.Cavum septi pellucidi. Cerebellum. Cisterna magna. Parenchyma. Neck. Nuchal fold. Face: Lips. Profile. Nose. Nasal bone. Maxilla. Mandible. Orbits. Heart/Thorax: RVOT view. LVOT view. 3-vessel view. 5-vqvnvs-rlmmvvu view.Situs. Aortic arch view. Bicaval view. Ductal arch view. Cardiac position. Cardiac axis. Cardiac size. Cardiacrhythm. Diaphragm. Abdomen: Abdom. wall. Cord insertion. Stomach. Kidneys. Bladder. Smallbowel. Large bowel. Right renal artery. Left renal artery. Genitals. Extremities/Skeleton: Right upper arm. Right forearm. Right hand. Leftupper arm. Left forearm. Left hand. Right upper leg. Right lower leg. Left upper leg. Left lower leg. The following structures could not be adequately visualized: Head / Neck Vermis. Heart / Thorax 4-chamber view. Interventricular septum. Great vessels. The following structures could not be examined: Heart / Thorax Right lung. Left lung. Spine: Cervical spine. Thoracic spine. Lumbar spine. Sacral spine. Extremities / Right foot. Left foot. Skeleton Maternal Structures ----- --------- Uterus Visualized Cervix Visualized Approach - Transvaginal: Cervical length 3.97 cm Right Ovary Not visualized Left Ovary Not visualized Cul de Sac Visualized. No free fluid visualized Impression ----- --------- Single live intrauterine consistent with 20w 0d with an SEBASTIAN of10/16/2025. Normal growth. EFW measures at the 44%, AC measures at the 64%. Transvaginal cervical length measures 3.97 cm. Amniotic fluid MVP measures 4.7 cm. Marginal cord insertion noted. Recommendations ----- --------- Please see [facility] documentation from today. The patient is scheduled in four to six week(s) to complete anatomicsurvey. Subsequent follow up or other follow up as clinically determined byprimary OB provider unless otherwise specified by [facility]. Results forwarded to ordering provider so they can follow up with thepatient as necessary. us Maisha Pratt MD [facility] [place] Final Result documented in this encounter Visit Diagnoses Diagnosis Screening, , for anatomic survey Encounter for anatomic survey documented in this encounter Additional Health Concerns Assessment Noted Time PHQ-9 Depression Total Score: 0 04/23/20 24 3:05 PM EDT documented as of this encounter Care Teams Director Of Accreditation Relationship Specialty Start Date End Date Riddhi Plata MD PCP - General Family Medicine 12/09/23 documented as of this encounter
--- OUTSIDE RECORDS SUMMARY | 2025-05-29 11:00 | XMS_ITS | Encounter Summary ---
Author Organization [facility] Address [id number] [address] [place] [address] Care Team Providers Care Lead Application Architect Name Role Phone Riddhi Plata MD Primary Care Provider [phone] Reason for Referral * Cardiology (Routine) - Authorized Specialty Diagnoses / Procedures Referred By Contac t Referred To Contact Diagnoses 20 weeks gestation of Chronic hypertension affecting Procedures ECG 12 lead Maisha Pratt MD [address] [place] [address] Phone: tel: fax: Referral ID Status Reason Start Date Expiration Date V isits Requested Visits Authorized [id number] Authorized 05/29/2025 05/29/2026 1 1 Reason for Visit * Reason Comments Hx PE Hx Gastric Bypass Anemia Asthma Hx GDM Encounter Details Date Type Department Care Team (Late st Contact Info) Description 05/29/2025 11:00 AM EDT Office Visit Maternal- Medicine at [facility] [address] [place] [id number] Maisha Pratt MD [address] [id number] History of maternal pulmonary embolus (Primary Dx); 20 weeks gestation of ; Chronic hypertension affecting ; History of pre-eclampsia in prior , currently in second trimester; History of gestational diabetes in prior , currently in second trimester; History of prediabetes; Bariatric surgery status complicating , second trimester; Severe obesity due to excess calories affecting , antepartum ([facility]); Obstructive sleep apnea; History of gestational diabetes in prior , currently ; Depression affecting ; Anxiety disorder affecting , antepartum Social History Tobacco Use Types Packs/Day Years Used Date Smoking Tobacco: Never Smokeless Tobacco: Never Alcohol Use Standard Drinks/Week Comments Not Currently 0 (1 standard drink = 0.6 oz pur e alcohol) social [facility] Utilities Answer Date Recorded In the past 12 months has th e [employer], gas, oil, or water [email or web address] threatened to shut off services in your [...] PM EST documented as of this encounter Last Filed Vital Signs Vital Sign Reading Time Taken Comments Blood Pressure 100/62 05/29/2025 10:20 AM EDT Pulse 51 05/29/2025 10:20 AM EDT Temperature - - Respiratory Rate - - Oxygen Saturation - - Inhaled Oxygen Concentration - - Weight 103.5 kg (228 lb 3.2 oz) 025 10:20 AM EDT Height 154.9 cm (5' 0.98 ) 05/29/2025 1 0:20 AM EDT Body Mass Index 43.14 05/29/2025 10:20 AM EDT documented in this encounter Progress Notes * Winter Gibbons LPN - 05/29/2025 11:00 AM EDT Headache/epigastric pain/blurry vision/swelling? Headaches with blurry vision Cramping/contractions? No Spotting/vaginal bleeding? No Loss or gush of fluid like your water may have broken? No Do you have cats at home? Yes, indoor/outdoor Do you change the litter box (reason: risk of toxoplasmosis)? No Genetic testing done this here or other office? Yes, through primary OB, low risk Have you been seen here at [facility] in a previous ? No Recent ER visits or hospitalizations? Yes, for elevated blood pressure Bring blood sugar log or meter with you today? (Please bring them with you for every visit at [facility]) N/A Flu vaccine (Jul-November)? N/A Any concerns that you would like me to mention to the provider today? Increased urinary frequency denies burning, OB would like her to discuss Hx of blood clots - is a blood thinner needed, discuss BP management * Maisha Pratt MD - 05/29/2025 11:00 AM EDT REASON FOR CONSULTATION: History pulmonary embolus , history of gastric bypass HISTORY OF PRESENT ILLNESS: Shira Jett is a pleasant 30 y.o. at 20w0d due on Estimated Date of Delivery: 10/16/25. complicated by: CHTN, previously managed on lisinopril prior to weight loss and bariatric surgery. Currently managed on labetalol 200 mg TID. History of pulmonary embolism in 11/30/2021. 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 Patient's father with multiple episodes of DVT. History of prediabetes, A1c 6.1% in 2023, 5.0% following weight loss/bariatric surgery History of gestational diabetes in 2 prior pregnancies History of gastric bypass in 04/23/2024 (Bonnie-en-y surgery) Obesity affecting , pre gravid BMI >40 LUCIANO, uses CPAP machine History of gestational hypertension and preeclampsia Depression and anxiety, currently celexa and buspar. Mood stable. Denies SI/HI Today, the patient is doing well. She denies headaches, vision changes, nausea, vomiting, right upper quadrant or epigastric pain, SOB or chest pain. She denies contractions, vaginal bleeding, leaking of fluid. She reports good movement. Aneuploidy screening: low risk cell free DNA for trisomy 13, 18, 21, monosomy X, ([place]) Carrier screening: I have reviewed the pertinent available patient records including but not limited to notes, labs and images. PAST OBSTETRICAL HISTORY: OB History Para Term AB Living 3 2 2 0 0 2 SAB IAB Ectopic Multiple Live Births 0 0 0 0 2 # Outcome Date GA Lbr Aquilino/2nd Weight Sex Type Anes PTL Lv 3 Current 2 Term 11/21/21 39w1d 3.685 kg F Vag-Spont IRVIN Complications: Gestational hypertension, Gestational diabetes, Preeclampsia in period 1 Term 11/18/18 39w0d 3.685 kg M Vag-Spont N IRVIN Complications: Gestational diabetes, Preeclampsia in period MEDICAL HISTORY: Past Medical History: Diagnosis Date ADHD (attention deficit hyperactivity disorder) Anxiety Asthma, mild intermittent Depression Disorder of endocrine system GERD (gastroesophageal reflux disease) Gestational diabetes 12/09/2018 H/O gastric bypass History of anemia while History of pneumonia History of hypertension History of pre-eclampsia History of pulmonary embolism Irregular heart beat Migraine Obesity Obstructive sleep apnea PCOS (polycystic ovarian syndrome) Visual impairment stigmatism SURGICAL HISTORY: Past Surgical History: Procedure Laterality Date CARDIAC CATHETERIZATION 07/30/2022 CARDIAC CATHETERIZATION 11/23/2018 DAVINCI DV5 BYPASS GASTRIC BNONIE-EN Y N/A 04/23/2024 Performed by Ken Manzo MD at [facility] FINE NEEDLE ASPIRATION 06/14/2020 US Guided Percutaneous Aspiration MINI-LAPAROTOMY removal of IUD PELVIC LAPAROSCOPY 11/03/2022 with removal of IUD FAMILY/GENETIC HISTORY: Family History Problem Relation Age of Onset defects Paternal Grandfather Diabetes Paternal Grandfather Autoimmune disease Paternal Grandmother lupus Cancer Paternal Grandmother Diabetes Paternal Grandmother Asthma Paternal Grandmother Breast cancer Paternal Grandmother Cancer Maternal Grandmother Breast cancer Maternal Grandmother Diabetes Maternal Grandmother Ovarian cancer Maternal Grandmother defects Maternal Grandfather Diabetes Father Hypertension Father Arthritis Father Depression Father Clotting disorder Father COPD Father Mental illness Father Autoimmune disease Mother thyroid disease Diabetes Mother Hypertension Mother Anemia Mother Anesthesia problems Neg Hx Autism Neg Hx Developmental delay Neg Hx Down syndrome Neg Hx Bleeding Disorder Neg Hx Heart defect Neg Hx Sudden Neg Hx SOCIAL HISTORY: Social History Tobacco Use Smoking status: Never Smokeless tobacco: Never Vaping Use Vaping status: Never Used Substance Use Topics Alcohol use: Not Currently Comment: social Drug use: Never ALLERGIES: Allergies Allergen Reactions Sumatriptan Anaphylaxis and Other (See Comments) IMITREX FOR MIGRAINES CURRENT MEDICATIONS: Current Outpatient Medications: albuterol (PROVENTIL HFA;VENTOLIN HFA) 90 mcg/actuation inhaler, Inhale 2 puffs every 4 (four) hours as needed for wheezing., Disp: 18 g, Rfl: 0 busPIRone (BUSPAR) 15 mg tablet, Take 1 tablet (15 mg total) by mouth 2 (two) times a day as needed., Disp: , Rfl: citalopram (CeleXA) 20 mg tablet, Take 1 tablet (20 mg total) by mouth nightly Indications: anxiousness associated with depression., Disp: , Rfl: cyanocobalamin (VITAMIN B-12) 1,000 mcg/mL injection, Inject 1 mL (1,000 mcg total) into the appropriate muscle every 30 (thirty) days., Disp: 3 mL, Rfl: 1 labetaloL (NORMODYNE) 200 mg tablet, Take 1 tablet (200 mg total) by mouth 3 (three) times a day., Disp: , Rfl: 115/iron/folic acid ( 19 ORAL), Take by mouth., Disp: , Rfl: syringe with needle (BD LUER-KARENA SYRINGE) 3 mL 25 x 1 1/2 syringe, 1 SYRG by miscellaneous route every 30 (thirty) days., Disp: 3 each, Rfl: 1 aspirin 81 mg, Take 1 tablet (81 mg total) by mouth in the morning., Disp: 30 tablet, Rfl: 6 blood sugar diagnostic strip, Check fingersticks 4 times daily, fasting and 1 hour after the start of a meal, Disp: 100 strip, Rfl: 1 enoxaparin (LOVENOX) 40 mg/0.4 mL syringe, Inject 0.4 mL (40 mg total) under the skin in the morning and at bedtime., Disp: 12 mL, Rfl: 11 ferrous sulfate 325 (65 FE) MG tablet, Take 1 tablet (325 mg total) by mouth in the morning. (Patient not taking: Reported on 05/29/2025), Disp: 90 tablet, Rfl: 0 folic acid (FOLVITE) 1 mg tablet, Take 1 tablet (1 mg total) by mouth in the morning. (Patient not taking: Reported on 05/29/2025), Disp: 90 tablet, Rfl: 0 omeprazole (PriLOSEC OTC) 20 mg EC tablet, Take 1 tablet (20 mg total) by mouth in the morning., Disp: , Rfl: sennosides-docusate sodium (SENOKOT-S) 8.6-50 mg, Take 1 tablet by mouth in the morning., Disp: 30 tablet, Rfl: 6 RECENT HOSPITALIZATION: none HABITS: Patient activity no restrictions, diet no restrictions REVIEW OF SYSTEMS: Head and Neck: Negative for any dizziness and headaches. Cardiovascular and Respiratory System: Denies any chest pain, shortness of breath, and coughing. Abdominal and System: Denies any abdominal pain, nausea, vomiting, vaginal bleeding, and vaginal discharge REVIEW OF TESTS AND ULTRASOUND REPORTS: Referral records and the medical center chart were reviewed Pertinent Ultrasound findings are see formal ultrasound report. PHYSICAL EXAMINATION: BP 100/62 (BP Site: Left Arm, BP Postition: Sitting) Pulse 51 Ht 154.9 cm(5' 0.98 ) Wt 103.5 kg (228 lb 3.2 oz) LMP 01/09/2025 BMI 43.14 kg/m?? Well-appearing in no distress. Respirations not labored, speaking comfortably in full sentences Gravid abdomen OVERALL ASSESSMENT -Shira Jett is a pleasant 30 y.o. at 20w0d -history of pulmonary embolus, -family history of VTE -chronic hypertension affecting -history of preeclampsia in prior -history of gastric bypass -severe obesity affecting -history of prediabetes -history of gestational diabetes in prior -depression anxiety affecting COUNSELING/MEDICAL DECISION-MAKING History of pulmonary embolus in 2021, Women who are or in the period have a fourfold to fivefold increased risk of thromboembolism compared with non women. is associated with physiologic and anatomicchanges that increase the risk of thromboembolism, including hypercoagulability, increased venous stasis, were having as you have any any vaginal bleeding everything heart Breeze under lots decreasedvenous outflow compression of the inferior vena cava and pelvic veins by the enlarging uterus and decreased mobility. The most important individual risk factor for VTE in is a personal history of thrombosis.The risk of recurrent VTE during is increased threefold to fourfold (relative risk, 3.5; 95% CI, 1.6-7.8), and 15-25% of all cases of VTE in are recurrent events. The next most important individual risk factor for VTE in is the presence of a thrombophilia. Both acquired and inherited thrombophilias increase the risk of VTE. In the context of aIn those patients with asingle unprovoked VTE (includes no identified precipitating factors and prior VTE in or VTE associated with hormonal contraception) who were not on long-term anticoagulation, ACOG recommends that antepartum management and management can include prophylactic, intermediate dose, or adjusted dose low-molecular weight/unfractionated heparin to be continued through 6 weeks . Given patient's family history of DVTs and elevated BMI, we discussed antepartum management with intermediate area dose Lovenox at 0.5 mg/kg b.i.d.; transitioning to full-dose anticoagulation with Lovenox 1.0 mg/kg b.i.d. Signs and symptoms of VTE were reviewed in detail, including unilateral lower extremity swelling, pain, palpable cord, or erythema in a lower extremity, shortness of breath and difficulty breathing, and chest pain. I would recommend completing testing for inherited thrombophilias (protein S and C deficiency, antithrombin III deficiency), if this testing is positive I would transition patient to full-dose anticoagulation during the remainder her antepartum care. Reviewed precautions of holding Lovenox in the event of vaginal bleeding, signs symptoms of pretermlabor and PPROM. Additionally, reviewed with the patient the importance of holding her evening Lovenox the night prior to her scheduled induction of labor and the morning of her scheduled induction of labor. I do not recommend transitioning to heparin at the end of . Chronic Hypertension We discussed the risks of chronic hypertension including growth restriction, increased risk of preeclampsia, delivery, and/ or placental abruption. With mild hypertension, no underlyingcardiac disease, and normal renal function, most women do well in . We recommend baseline p reeclampsia labs, 24 hour urine protein, EKG and BNP. I explained that acceptable blood pressures in pregnancies with chronic hypertension < 140 systolic and <90 diastolic. Antihypertensive medication treatment with aim to maintain BPs <140/90 have demonstrated improvements in outcomes including development of severe preeclampsia, indicated delivery < 35 weeks, abruption, or , without increased risk of fetalgrowth restriction or other serious maternal or adverse outcomes. Based on this data, ACOGrecommends utilizing 140/90 as the threshold for initiation or titration of medical therapy for chronic hypertension in , rather than the previously recommended threshold of 160/110. Referenc e: PMID: [id number]. Blood pressures do increase as progresses and it is possible that she may require an increase in her medication dosing. However, any significant exacerbation in baseline BPs in after 20 weeks in a patient with CHTN should be worked up closely for possible superimposed preeclampsia. I recommended serial growth ultrasounds every 4 weeks after 20 weeks to ensure appropriate growth. In addition, testing recommended should be initiated at 32 weeks with once weekly NST and weekly MELY assesent, increase to twice weekly NSTs with weekly MELY at 36 weeks gestational age. With uncomplicated hypertension, reassuring testing, and no evidence of preeclampsia it is reasonable to deliver at 39 weeks. If complications arise, it may be necessary to deliver earlier. I also recommend baby aspirin once daily to reduce the risk of preeclampsia. There have been several dosing strategies for low dose aspirin for preeclampsia prevention, 81 mg (endorsed by ACOG) and 150 mg daily. Our practice continues to endorse the 81 mg dosing regimen for preeclampsia prevention as is recommended by the [place] [employer] Committee Opinion No. 743. Higher doses (150mg) have been studied, but utilized a screening strategy that is not widely performed in the [place] (serum analytes and uterine artery Doppler), limiting the generalizability of the findings. We discussed the safety profile of nifedipine and betal blockers when used to treat chronic hypertension in . Bariatric Surgery S/p Bariatric surgery It is advisable to delay for 12 to 24 month after bariatric surgeryto accommodate the rapid weight loss and allow attainment of goal weight. Complications associated with following bariatric surgery include but not limited to bowel obstruction, Band slippage, gastric ulcers and staple line strictures. Micronutrient supplementation may include Vitamins B1, B6, B12, D, and K, zinc, biotin, iron and calcium citrate. We discussed that given the theoretical risk of dumping syndrome with a 50 g glucose challenge testalternative testing for gestational diabetes should be considered in those pregnancies who cannot tolerate sugared soft drinks. Dumping syndrome typically does not occur in women who have undergone restrictive-type bariatric procedures such as gastric banding. These women can undergo standard testing for GDM. I recommend monitoring FSBG x4/day (fasting and 1hr postprandial) for 1-2 weeks now and again at 24-28 weeks gestation if negative initial screen. Additional recommendations for woman status post bariatric surgery include a nutrition consult (if not already placed), surveillance for adequate maternal weight gain during , serial growth ultrasounds. Due to micronutrient deficiencies, initial evaluation for micronutrient deficiencies includes laboratory workup of CBC, thiamine, vitamin B12, ferritin, iron, folate, vitamin-D and calcium. In each trimester follow-up with routine routine laboratory workup CBC, ferritin, B12, calcium and vitamin-D is recommended. Vitamin B1 deficiency is associated with neurological deficits, that are prominent if left untreated. The most common manifestation vitamin B1 deficiency in post bariatric bypass surgical patients isWernicke encephalopathy (encephalopathy, ocular motor dysfunction, and gait ataxia). Patients are re commended 50 mg of thiamine once to twice daily following bariatric surgery. Vitamin B12 deficiency results in pernicious anemia. Chronic vitamin B12 deficiency can also resultin peripheral neuropathy, which may not be reversible. Typically the body has 12-18 months storage of vitamin B12, thus vitamin B12 deficiencies commonly identified 2 years following bariatric surgery. Baby aspirin for the attempted prevention of preeclampsia is recommended. NSAIDs are known to increase the risk of developing marginal as ulcer following laparoscopic Bonnie-en-Y gastric bypass surgery. However a retrospective cohort study evaluating the risk of low-dose daily aspirin at 81 mg did not show an increased risk of marginal ulceration (8.3% aspirin vs 10.3% no aspirin, p=0.45) (PMBID: [id number]). Given well-established benefits baby aspirin for the prevention of preeclampsia, I recommend initiating baby aspirin even in the setting of history of Bonnie-en-Y surgery. Micronutrient Dosing Recommendations: Calcium: recommend 1000-1200mg daily; if deficient, recommend 8572-9938 mg PO daily in divided doses Vitamin D: recommend 800IU during and ; if deficient, recommend 3000-6000IU of D3 daily Vitamin B1: recommend 50mg daily; if deficient, recommend 100-250mg monthly IM injects or 100mg TIDPO until symptoms resolve Vitamin B12: recommend 35-100mcg daily PO; if deficient, recommend 1000mcg daily PO until level normalize Folate: recommend 800mcg-1000mcg daily PO (do not exceed 1mg daily); if deficient, recommend 1000mcg daily PO until levels normalize Iron: recommend 45-60mg of elemental iron daily from all sources; if deficient, recommend 150-300mgPO BID to TID OR IV iron SUMMARY/RECOMMENDATION: recommend obtaining baseline EKG and BNP in the setting of chronic hypertension and maternal age, ordered recommend baseline 24 hour urine protein in addition to CBC CMP uric acid and lactate dehydrogenase, ordered continue labetalol 200mg BID monitor BP daily at home, BP cuff prescribed, BP logs to be reviewed with primary OB uptitrate antihypertensives, either with labetalol or nifedipine, to maintain blood pressure goal of less than 140/90 if she develops severe range BPs in this , I recommend she be admitted to the hospital forevaluation of suspected superimposed preeclampsia. Initiated on baby aspirin for attempted preeclampsia prevention, see above counseling Evaluation for micronutrient deficiencies at first visit: CBC, thiamine (vitamin B1), vitamin B12, folate, ferritin, iron, vitamin D and calcium, ordered Continue evaluation for micronutrient deficiencies every trimester: CBC, ferritin, B12, calcium andVitamin D See above for specific recommendations regarding maintenance and repletion dosing of micronutrients Alternative testing for gestational diabetes as patient cannot tolerate 50g GCT. Consider FSBG x4/day x1-2 weeks as alternative testing Supplies ordered today. Recommend patient monitor for 2 weeks now and again at 26-28 weeks gestation if initial screening is negative Remainder of inherited thrombophilia testing ordered (protein S and C deficiency, antithrombin III deficiency) Initiated on intermediate anticoagulation dosing with Lovenox 0.5mg/kg BID for the remainder of DVT precautions reviewed Reviewed precautions of holding Lovenox in the event of vaginal bleeding, signs symptoms of pretermlabor and PPROM. Recommend holding evening Lovenox the night prior to her scheduled induction of labor and the morning of her scheduled induction of labor to facilitate regional anesthesia at time of labor/delviery Do not recommend transitioning to heparin at the end of . Transition to full-dose anticoagulation with Lovenox 1mg/kg BID for 6 weeks . Can be restarted during hospitalization once hemodynamically stable and cleared by anesthesia. Incomplete level 2 anatomy ultrasound, attempt completion in 4-6 weeks Serial growth ultrasound every 4 weeks starting at 24 weeks Level 2 anatomy ultrasound, attempt completion in 4-6 weeks through MFM serial growth ultrasounds every 4 weeks following completion of level 2 anatomy US, through primaryOB testing recommendation; weekly NSTs with MELY starting at 32 weeks, increasing to twice weekly NSTs with MELY starting at 36 weeks, given multiple comorbidities including chronic hypertension, elevated BMI reviewed monitoring for movements reviewed preeclampsia precautions Delivery recommended 38-39 weeks gestation at local hosptial DISPOSITION: At this point the patient is in complete care of her vp design. Patient does have ultrasound and office visit scheduled with us. Thank you for allowing me to participate in the care of Shira Jett. If there any questions please do not hesitate to contact us. Total time spent was 70 minutes: Preparing to see the patient (e.g., review of tests) Obtaining and/or reviewing separately obtained history Performing a medically appropriate examination and/or evaluation Counseling and educating the patient/family/caregiver Ordering medications, tests, or procedures Referring and communicating with other health care navigator (not separately reported) Documenting clinical information in the electronic or other health record Independently interpreting results (not separately reported) and communicating results to the patient/family/caregiver Maisha Pratt MD Maternal- Medicine [facility] [address] [place] [address] This document was created with [employer] technology. Though I make every effort to review the dictation as it is transcribed, on occasion the spoken word can be misinterpreted by the technology leading to inappropriate words, phrases, or sentences. This note is addressed to the requesting provider as a consultation for clinical guidance. Specificmedical abbreviations are occasionally used and those are generally approved by the [place]?Board of?Obstetrics and?Gynecology?as well as?[place]???s abbreviations. The above plan of care was based solely on the diagnoses for which a consultation was requested. ?More frequent testing may be indicated based on her other medical/obstetrical conditions. The management of other or medical conditions is beyond the scope of requested consultation and will c ontinue to be followed by the primary vp design or primary care provider. Note to patient: The Century Cures Act makes medical notes like these available to patients inthe interest of transparency. However, be advised this is a medical document. It is intended as peer to peer communication. It is written in medical language and may contain abbreviations or verbiagethat are unfamiliar. It may appear blunt or direct. Medical documents are intended to carry relevant information, facts as evident, and the clinical opinion of the practitioner. documented in this encounter Plan of Treatment Upcoming Encounters Date Type Department Care Team (Late st Contact Info) Description 07/09/2025 9:45 AM EDT Appointment [facility] [address] [place] [address] 07/09/2025 11:30 AM EDT Office Visit Maternal- Medicine at [facility] [address] [facility] [place] [address] Sana Lima MD [address] [place] [address] Scheduled Orders Name Type Priority Associated Diagnoses Orde r Schedule ECG 12 lead ECG Routine 20 weeks gestation of Chronic hypertension affecting 1 Occurrences starting 05/29/2025 until 05/29/2026 documented as of this encounter Goals Goal Patient Goal Type Associated Problems Recent Progress Patient-Stated? Author safe discharge to home General Yes Kate Blanton, LEANDRO Note: Evaluation of progress towards goal: safe transition from hospital to home with family support. documented as of this encounter Results * Anti thrombin 3 funct (05/29/2025 1:48 PM EDT) ANTI THROMBIN 3 FUNCT 93 83 - 128 % 06/05/2025 9:14 AM EDT [facility] Blood Venous blood / Unknown Venipuncture / Unknown 05/29/2025 1:48 PM EDT 05/29/2025 1:48 PM EDT us Maisha Pratt MD LAB BLOOD ORDERABLES Final Resul t [facility] [address] [place] [address], [place] [phone] * Protein C activity (05/29/2025 1:48 PM EDT) PROTEIN C ACTIVITY 137 70 - 140 % 06/05/2025 9:14 AM EDT [facility] Blood Venous blood / Unknown Venipuncture / Unknown 05/29/2025 1:48 PM EDT 05/29/2025 1:48 PM EDT us Maisha Pratt MD LAB BLOOD ORDERABLES Final Resul t [facility] [address] [place] [address], [place] [phone] * (ABNORMAL) Protein S activity (05/29/2025 1:48 PM EDT) PROTEIN S ACTIVITY 55(L) 64 - 149 % 06/05/2025 9:14 AM EDT [facility] Comment: Oral contraceptives, hormonal therapy, , acute illness,thrombosis, DIC, liver disease, warfarin or the presence of Factor V Leiden mutation, may lead to diminished recovery of Protein S. If Protein S activity is decreased, reflex testing for Protein S free and total antigen may be performed. Results of the test should be interpreted in conjunction with the patient's medical history, clinical presentation and other laboratory findings. Blood Venous blood / Unknown Venipuncture / Unknown 05/29/2025 1:48 PM EDT 05/29/2025 1:48 PM EDT Maisha Pratt MD LAB BLOOD ORDERABLES Final Resul t Performing Organization Address [facility] de Phone Number [facility] [address] [place] [address], * (ABNORMAL) Iron and TIBC (05/29/2025 1:48 PM EDT) Pathologist [facility] IRON 71 50 - 170 ug/dL 05/29/2025 3:58 PM EDT [facility] TRANSFERRIN 332 168 - 336 mg/dL 05/29/2025 3:58 PM EDT [facility] IRON BINDING 465(H) 250 - 425 ug/dL 05/29/2025 3:58 PM EDT [facility] IRON SATURATION 15 15 - 50 % SATURATION 05/29/2025 3:58 PM EDT [facility] Blood Venous blood / Unknown Venipuncture / Unknown 05/29/2025 1:48 PM EDT 05/29/2025 1:48 PM EDT Maisha Pratt MD LAB BLOOD ORDERABLES Final Resul t Performing Organization Address [facility] Co de Phone Number [facility] [address] [place] [address], * Ferritin (05/29/2025 1:48 PM EDT) [facility] FERRITIN 15 11 - 307 ng/mL 05/29/2025 4:12 PM EDT [facility] Blood Venous blood / Unknown Venipuncture / Unknown 05/29/2025 1:48 PM EDT 05/29/2025 1:48 PM EDT us Maisha Pratt MD LAB BLOOD ORDERABLES Final Resul t [facility] [address] [place] [address], * Folate (05/29/2025 1:48 PM EDT) [facility] FOLIC ACID 13.3 >5.8 ng/mL 05/29/2025 4:18 PM EDT [facility] Blood Venous blood / Unknown Venipuncture / Unknown 05/29/2025 1:48 PM EDT 05/29/2025 1:48 PM EDT us Maisha Pratt MD LAB BLOOD ORDERABLES Final Resul t Performing Organization Address City/[facility] Co de Phone Number [facility] [address] [place] [address], * Zinc, Serum (05/29/2025 1:48 PM EDT) [facility] ZINC, S 62 60 - 106 mcg/dL 05/30/2025 2:14 PM EDT [facility] Comment: ADDITIONAL INFORMATION This test was developed and its performance characteristics determined by [facility] in a manner consistent with CLIA requirements. This test has not been cleared or approved by the U.S. Food and Drug Administration. Test Performed by: [facility] [address] [place] [id number] Environmental Engineering Technician: Jayce Daniels Ph.D.; CLIA# [id number] Blood Venous blood / Unknown Venipuncture / Unknown 05/29/2025 1:48 PM EDT 05/29/2025 1:48 PM EDT Maisha Pratt MD LAB BLOOD ORDERABLES Final Resul t [facility] [address] [place] [address], [place] * (ABNORMAL) Vitamin D 25 hydroxy (05/29/2025 1:48 PM EDT) VITAMIN D 25 HYD TOT 27.1(L) 30.0 - 100.0 ng/mL 05/29/2025 4:18 PM EDT [facility] Blood Venous blood / Unknown Venipuncture / Unknown 05/29/2025 1:48 PM EDT 05/29/2025 1:48 PM EDT Narrative [facility] - 05/29/2025 4:18 PM EDT Vitamin D status 25 [place] Vitamin D Deficiency <20 ng/mL Insufficiency 20-29 ng/mL Sufficiency 30-100 ng/mL Toxicity >100 ng/mL NOTE: A pediatric reference range has not been established by the auto specialty services manager of this kit. The [place] [employer] recommends a Vitamin D level of = or >20ng/mL in infants and children. us Maisha Pratt MD LAB BLOOD ORDERABLES Final Resul t [facility] [address] [place] [address], [place] [phone] * Vitamin B12 (05/29/2025 1:48 PM EDT) VITAMIN B12 243 180 - 914 pg/mL 05/29/2025 4:20 PM EDT [facility] Blood Venous blood / Unknown Venipuncture / Unknown 05/29/2025 1:48 PM EDT 05/29/2025 1:48 PM EDT us Maisha Pratt MD LAB BLOOD ORDERABLES Final Resul t Performing Organization Address City/[facility]/ZIP Co de Phone Number [facility] [address] [place] [address], * Thiamin (Vitamin B1), WB (05/29/2025 1:48 PM EDT) THIAMIN (VITAMIN B1), WB 123 70 - 180 nmol/L 06/02/2025 2:13 PM EDT [facility] Comment: ADDITIONAL INFORMATION This test was developed and its performance characteristics determined by [facility] in a manner consistent with CLIA requirements. This test has not been cleared or approved by the U.S. Food and Drug Administration. Test Performed by: [facility] [address] [place] [address] Environmental Engineering Technician: Jayce Daniels Ph.D.; CLIA# [id number] Blood Venous blood / Unknown Venipuncture / Unknown 05/29/2025 1:48 PM EDT 05/29/2025 1:48 PM EDT us Maisha Pratt MD LAB BLOOD ORDERABLES Final Resul t [facility] [address] [place] [address], * LDH (05/29/2025 1:48 PM EDT) LDH 164 100 - 235 U/L 05/29/2025 3:58 PM EDT [facility] Blood Venous blood / Unknown Venipuncture / Unknown 05/29/2025 1:48 PM EDT 05/29/2025 1:48 PM EDT us Maisha Pratt MD LAB BLOOD ORDERABLES Final Resul t [facility] [address] [place] [address], [place] [phone] * Uric acid (05/29/2025 1:48 PM EDT) URIC ACID 4.4 2.6 - 7.2 mg/dL 05/29/2025 3:58 PM EDT [facility] Blood Venous blood / Unknown Venipuncture / Unknown 05/29/2025 1:48 PM EDT 05/29/2025 1:48 PM EDT us Maisha Pratt MD LAB BLOOD ORDERABLES Final Resul t Performing Organization Address City/[facility] Co de Phone Number [facility] [address] [place] [address], [place] [phone] * Protein creat ratio (05/29/2025 1:48 PM EDT) URINE PROTEIN, RANDOM (MG/L) 110 <120 mg/L 05/29/2025 3:58 PM EDT [facility] URINE CREATININE,RDM 138.80 mg/dL 05/29/2025 3:58 PM EDT [facility] U/PRO/EQUAL OPPORTUNITY DIRECTOR RATIO CALC 0.08 <=0.20 05/29/2025 3:58 PM EDT [facility] Urine Urine specimen collection, clean catch / Unknown Collection / Unknown 05/29/2025 1:48 PM EDT 05/29/2025 1:48 PM EDT Narrative [facility] - 05/29/2025 3:58 PM EDT Nephrotic Syndrome is associated with ratios >3.5 us Maisha Pratt MD URINE ORDERABLES Final Result Performing Organization Address City/[facility]/ZIP Co de Phone Number [facility] [address] [place] [id number], * (ABNORMAL) Comprehensive metabolic panel (05/29/2025 1:48 PM EDT) SODIUM 139 134 - 146 mmol/L 05/29/2025 3:58 PM EDT [facility] POTASSIUM 3.6 3.5 - 5.0 mmol/L 05/29/2025 3:58 PM EDT [facility] CHLORIDE 106 98 - 109 mmol/L 05/29/2025 3:58 PM EDT [facility] CARBON DIOXIDE 19(L) 22 - 32 mmol/L 05/29/2025 3:58 PM EDT [facility] ANION GAP 14 5 - 15 mmol/L 05/29/2025 3:58 PM EDT [facility] BLOOD UREA NITROGEN 9 5 - 23 mg/dL 05/29/2025 3:58 PM EDT [facility] CREATININE 0.45 0.40 - 1.00 mg/dL 05/29/2025 3:58 PM EDT [facility] Comment:METHOD TRACEABLE TO IDWA STANDARD GLUCOSE 128(H) 65 - 99 mg/dL 05/29/2025 3:58 PM EDT [facility] CALCIUM 8.8 8.5 - 10.5 mg/dL 05/29/2025 3:58 PM EDT [facility] TOTAL PROTEIN 6.5 6.0 - 8.0 g/dL 05/29/2025 3:58 PM EDT [facility] ALBUMIN 3.7 3.2 - 5.3 g/dL 05/29/2025 3:58 PM EDT [facility] ALKALINE PHOSPHATASE 69 39 - 130 U/L 05/29/2025 3:58 PM EDT [facility] AST 12 <=41 U/L 05/29/2025 3:58 PM EDT [facility] ALT 11 <=31 U/L 05/29/2025 3:58 PM EDT [facility] BILIRUBIN,TOTAL 0.3 0.3 - 1.2 mg/dL 05/29/2025 3:58 PM EDT [facility] EGFR Non-Race Dependent >90 >=60 ml/min/1.7 3sq.m 05/29/2025 3:58 PM EDT [facility] Comment: Reported eGFR is based on the CKD-EPI 2020 equation that does not use a race coefficient. Blood Venous blood / Unknown Venipuncture / Unknown 05/29/2025 1:48 PM EDT 05/29/2025 1:48 PM EDT us Maisha Pratt MD LAB BLOOD ORDERABLES Final Resul t [facility] [address] [place] [address], * (ABNORMAL) CBC without diff (05/29/2025 1:48 PM EDT) WBC 9.8 4 - 11 x10E9/L 05/29/2025 3:30 PM EDT [facility] RBC Count 3.81 3.8 - 5.2 X10E12/L 05/29/2025 3:30 PM EDT [facility] Hemoglobin 11.8 11.7 - 15.5 g/dL 05/29/2025 3:30 PM EDT [facility] Hematocrit 33.8(L) 35 - 47 % 05/29/2025 3:30 PM EDT [facility] MCV 89 80 - 100 fL 05/29/2025 3:30 PM EDT [facility] MCH 30.9 27 - 34 pg 05/29/2025 3:30 PM EDT [facility] MCHC 34.8 32 - 36 g/dL 05/29/2025 3:30 PM EDT [facility] RDW 13.5 11.5 - 15 % 05/29/2025 3:30 PM EDT [facility] Platelet Count 245 150 - 450 X10E9/L 05/29/2025 3:30 PM EDT [facility] MPV 8.4 7 - 12 fL 05/29/2025 3:30 PM EDT [facility] Blood Venous blood / Unknown Venipuncture / Unknown 05/29/2025 1:48 PM EDT 05/29/2025 1:48 PM EDT us Maisha Pratt MD LAB BLOOD ORDERABLES Final Resul t [facility] [address] [place] [address], [place] [phone] * B-type natriuretic peptide (05/29/2025 1:48 PM EDT) BNP 23 <=100 pg/mL 05/29/2025 4:03 PM EDT [facility] Blood Venous blood / Unknown Venipuncture / Unknown 05/29/2025 1:48 PM EDT 05/29/2025 1:48 PM EDT us Maisha Pratt MD LAB BLOOD ORDERABLES Final Resul t [facility] [address] [place] [address], documented in this encounter Visit Diagnoses Diagnosis History of maternal pulmonary embolus- Primary Personal history of venous thrombosis and embolism 20 weeks gestation of Chronic hypertension affecting History of pre-eclampsia in prior , currently in second trimester History of gestational diabetes in prior , currently in second trimester History of prediabetes Bariatric surgery status complicating , second trimester Severe obesity due to excess calories affecting , antepartum ([facility] Obstructive sleep apnea Obstructive sleep apnea (adult) (pediatric) History of gestational diabetes in prior , currently with other poor obstetric history Depression affecting Anxiety disorder affecting , antepartum documented in this encounter Additional Health Concerns Assessment Noted Time PHQ-9 Depression Total Score: 0 04/23/20 24 3:05 PM EDT documented as of this encounter Care Teams Lead Application Architect Relationship Specialty Start Date End Date Riddhi Plata MD PCP - General Family Medicine 12/09/23 documented as of this encounter
--- OUTSIDE RECORDS SUMMARY | 2025-06-10 08:49 | XMS_ITS ---
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 Name Role Phone JESSICA MARISCAL F Primary Care Unavailable KELLY VILLAREAL Referring Unavailable LOIDA, JESSICA F Primary Care Unavailable LANA GUTHRIE Attending Unavailable LOIDA, JESSICA F Referring Unavailable LOIDA, JESSICA F Primary Care Unavailable GONZALEZ PASCAL Referring Unavailable LOIDA JESSICA F Primary Care Unavailable ESTER MARIE Attending Unavailable GONZALEZ PASCAL Referring Unavailable LOIDA JESSICA F Primary Care Unavailable [place], ESTER Referring Unavailable JESSICA MARISCAL Primary Care Unavailable JESSICA MARISCAL Attending Unavailable GONZALEZ PASCAL Attending Unavailable [place] Attending Unavailable [place] Attending Unavailable JESSICA MARISCAL Attending Unavailable JESSICA MARISCAL Attending Unavailable PROBLEMS DATE TYPE CONDITION / CODE ATTENDING STATUS [facility] 05/29/2025 Unknown Personal history of pulmonary embolism / Z86.711(ICD-10) [facility] 05/29/2025 Unknown Personal history of other complications of , childbirth and the puerperium / Z87.59(ICD-10) [facility] 05/29/2025 Unknown 20 weeks gestati on of / Z3A.20(ICD-10) [facility] 05/29/2025 Unknown Unspecified pre-existing hypertension complicating , unspecified trimester / O10.919(ICD-10) [facility] 05/29/2025 Unknown Supervision of with other poor reproductive or obstetric history, second trimester / O09.292(ICD-10) [facility] 05/29/2025 Unknown Personal history of gestational diabetes / Z86.32(ICD-10) [facility] 05/29/2025 Unknown Personal history of other specified conditions / Z87.898(ICD-10) [facility] 05/29/2025 Unknown Bariatric surger y status complicating , second trimester / O99.842(ICD-10) [facility] 05/29/2025 Unknown Obesity complica ting , unspecified trimester / O99.210(ICD-10) [facility] 05/29/2025 Unknown Morbid (severe) obesity due to excess calories / E66.01(ICD-10) [facility] 05/29/2025 Unknown Obstructive slee p apnea (adult) (pediatric) / G47.33(ICD-10) [facility] 05/29/2025 Unknown Supervision of with other poor reproductive or obstetric history, unspecified trimester / O09.299(ICD-10) [place] [facility] 05/29/2025 Unknown Other mental dis orders complicating , unspecified trimester / O99.340(ICD-10) [facility] 05/29/2025 Unknown Depression, unsp ecified / F32.A(ICD-10) [facility] 05/29/2025 Unknown Anxiety disorder , unspecified / F41.9(ICD-10) [facility] 05/29/2025 Unknown Anemia / FREETEXT(AOF) [facility] 05/29/2025 Unknown Asthma / FREETEXT(AOF) [facility] 05/29/2025 Unknown Encounter for ot her specified screening / Z36.89(ICD-10) [facility] 01/01/2025 Unknown Deficiency of ot her specified B group vitamins / E53.8(ICD-10) LANA GUTHRIE [facility] 01/01/2025 Unknown Follow-up / FREETEXT(AOF) LANA GUTHRIE [facility] 01/01/2025 Unknown Injection / FREETEXT(AOF) LANA GUTHRIE [facility] 12/30/2024 Unknown Postsurgical malabsorption, not elsewhere classified / K91.2(ICD-10) [facility] 12/30/2024 Unknown Bariatric surger y status / Z98.84(ICD-10) [facility] 01/01/2025 Unknown Personal history of diseases of the blood and blood-forming organs and certain disorders involving the immune mechanism / Z86.2(ICD-10) [facility] 12/15/2024 Unknown Low back pain, unspecified / M54.50(ICD-10) [facility] 12/15/2024 Unknown Back Pain / FREETEXT(AOF) NA Active [facility] 12/15/2024 Unknown Back pain / UNK(Unknown) NA Active [facility] PROCEDURES No Procedure Records Found RESULTS CBC (NO DIFF) Collected: 05/29/2025 1:48 PM S tatus: COMPLETED Source: [facility] TYPE CODE TESTS RESULT OUT OF RANGE REFERENCE UNITS LAB WBC WBC 9.8 4-11 x10E9/L LAB RBC RBC COUNT 3.81 3.8-5.2 X10E12/L LAB HGB HEMOGLOBIN 11.8 11.7-15.5 g/dL LAB HCT HEMATOCRIT 33.8 Low 35-47 % LAB MCV MCV 89 80-100 fL LAB MCH MCH 30.9 27-34 pg LAB MCHC MCHC 34.8 32-36 g/dL LAB RDW RDW 13.5 11.5-15 % LAB PLTC PLATELET COUNT 245 150-450 X10E9/L LAB MPV MPV 8.4 7-12 fL Performed By: #### CBC #### [facility] ([facility]) [address] [place] [address] VIR PROTEIN CREAT RATIO Collected: 05/29/2025 1:48 PM Status: COMPLETED Source: [facility] Order Comment: Nephrotic Syn drome is associated with ratios >3.5 TYPE CODE TESTS RESULT OUT OF RANGE REFERENCE UNITS LAB UTPR URINE PROTEIN, RANDOM (MG/L) 110 <120 mg/L LAB UCRR URINE CREATININE,RDM 138.80 mg/dL LAB UPCRC U/PRO/SWEATER OPERATOR RATIO CALC 0.08 <=0.20 NA Performed By: #### UPCR #### [facility] ([facility]) [address] [place] [address] VIR URIC ACID Collected: 05/29/2025 1:48 PM S tatus: COMPLETED Source: [facility] TYPE CODE TESTS RESULT OUT OF RANGE REFERENCE UNITS LAB URIC URIC ACID 4.4 2.6-7.2 mg/dL Performed By: #### URIC #### [facility] ([facility]) [address] [place] [address] VIR COMPREHENSIVE METABOLIC PANEL Collected: 2024 1:48 PM Status: COMPLETED Source: [facility] TYPE CODE TESTS RESULT OUT OF RANGE REFERENCE UNITS LAB NA SODIUM 139 134-146 mmol/L LAB K POTASSIUM 3.6 3.5-5.0 mmol/L LAB CL CHLORIDE 106 98-109 mmol/L LAB CO2 CARBON DIOXIDE 19 Low 22-32 mmol/L LAB AGAP ANION GAP 14 5-15 mmol/L LAB BUN BLOOD UREA NITROGEN 9 5-23 mg/dL LAB CRET CREATININE 0.45 0.40-1.00 mg/dL Result Comment: METHOD TRACE ABLE TO IDMS STANDARD LAB GLU GLUCOSE 128 High 65-99 mg/dL LAB CA CALCIUM 8.8 8.5-10.5 mg/dL LAB TP TOTAL PROTEIN 6.5 6.0-8.0 g/dL LAB ALB ALBUMIN 3.7 3.2-5.3 g/dL LAB ALK ALKALINE PHOSPHATASE 69 39-130 U/L LAB AST AST 12 <=41 U/L LAB ALT ALT 11 <=31 U/L LAB TBIL BILIRUBIN,TOTAL 0.3 0.3-1.2 mg/dL LAB EGFR EGFR (CKD-EPI) NON-RACE DEPENDENT >^90 >=60 ml/min/1 .73sq.m Result Comment: Reported eGF R is based on the CKD-EPI 2020 equation that does not use a race coefficient. Performed By: #### CMP #### [facility] ([facility]) [address] [place] [address] VIR LDH Collected: 05/29/2025 1:48 PM S tatus: COMPLETED Source: [facility] TYPE CODE TESTS RESULT OUT OF RANGE REFERENCE UNITS LAB LDH LDH 164 100-235 U/L Performed By: #### LDH #### [facility] ([facility]) [address] [place] [address] VIR IRON AND TIBC Collected: 1:48 PM Status: COMPLETED Source: [facility] TYPE CODE TESTS RESULT OUT OF RANGE REFERENCE UNITS LAB FE IRON 71 50-170 ug/dL LAB TRF TRANSFERRIN 332 168-336 mg/dL LAB TIBC IRON BINDING 465 High 250-425 ug/dL LAB SAT IRON SATURATION 15 15-50 % SATURATION Performed By: #### FEPR #### [facility] ([facility]) [address] [place] [address] VIR B-TYPE NATRIURETIC PEPTIDE Collected: 1:48 PM Status: COMPLETED Source: [facility] TYPE CODE TESTS RESULT OUT OF RANGE REFERENCE UNITS LAB BNP B-TYPE NATRIURETIC PEPTIDE 23 <=100 pg/mL Performed By: #### BNP #### [facility] ([facility]) [address] [place] [address] VIR FERRITIN Collected: 05/29/2025 1:48 PM S tatus: COMPLETED Source: [facility] TYPE CODE TESTS RESULT OUT OF RANGE REFERENCE UNITS LAB FERR FERRITIN 15 11-307 ng/mL Performed By: #### FERR #### [facility] ([facility]) [address] [address] VIR VITAMIN D 25 HYDROXY Collected: 05/29/2025 1:48 PM Status: COMPLETED Source: [facility] Order Comment: Vitamin D sta tus 25 [place] Vitamin D Deficiency <20 ng/mL Insufficiency 20-29 ng/mL Sufficiency 30-100 ng/mL Toxicity >100 ng/mL NOTE: A pediatric reference range has not been established by the fur dyer of this kit. The [place] [employer] recommends a Vitamin D level of = or >20ng/mL in infants and children. TYPE CODE TESTS RESULT OUT OF RANGE REFERENCE UNITS LAB VITD VITAMIN D 25 HYD TOT 27.1 Low 30.0-100.0 ng/mL Performed By: #### VITD #### [facility] ([facility]) [address] [place] [address] VIR FOLATE Collected: 05/29/2025 1:48 PM S tatus: COMPLETED Source: [facility] TYPE CODE TESTS RESULT OUT OF RANGE REFERENCE UNITS LAB FOLI FOLIC ACID 13.3 >5.8 ng/mL Performed By: #### FOLI #### [facility] ([facility]) [address] [place] [address] VIR VITAMIN B12 Collected: 05/29/2025 1:48 PM S tatus: COMPLETED Source: [facility] TYPE CODE TESTS RESULT OUT OF RANGE REFERENCE UNITS LAB B12 VITAMIN B12 243 180-914 pg/mL Performed By: #### B12 #### [facility] ([facility]) [address] [place] [address] VIR ZINC, SERUM Collected: 1:48 PM Status: COMPLETED Source: [facility] TYPE CODE TESTS RESULT OUT OF RANGE REFERENCE UNITS LAB ZINCSR ZINC, S 62 60-106 mcg/dL Result Comment: ADDITIONAL INFORMATION This test was developed and its performance characteristics determined by [facility] in a manner consistent with CLIA requirements. This test has not been cleared or approved by the U.S. Food and Drug Administration. Test Performed by: [facility] [place] [address] Associate Professor Of Automation: Jayce Daniels Ph.D.; CLIA# [id number] Performed By: #### ZINCS ### # [facility] [employer] ([facility]) [address] [place] [address] VIR THIAMIN (VITAMIN B1), WB Collected: 1:48 PM Status: COMPLETED Source: [facility] TYPE CODE TESTS RESULT OUT OF RANGE REFERENCE UNITS LAB VTB1BR THIAMIN (VITAMIN B1), WB 123 70-180 nmol/L Result Comment: ADDITIONAL INFORMATION This test was developed and its performance characteristics determined by [facility] in a manner consistent with CLIA requirements. This test has not been cleared or approved by the U.S. Food and Drug Administration. Test Performed by: [facility] [place] [address] Associate Professor Of Automation: Jayce Daniels Ph.D.; CLIA# [id number] Performed By: #### VTB1B ### # [facility] [address] [place] [address] VIR PROTEIN S ACTIVITY Collected: 05/29/2025 1:48 P M Status: COMPLETED Source: [facility] TYPE CODE TESTS RESULT OUT OF RANGE REFERENCE UNITS LAB PRSAC PROTEIN S ACTIVITY 55 Low 64-149 % Result Comment: Oral contrac eptives, hormonal therapy, , acute illness,thrombosis, DIC, liver disease, warfarin or the presence of Factor V Leiden mutation, may lead to diminished recovery of Protein S. If Protein S activity is decreased, reflex testing for Protein S free and total antigen may be performed. Results of the test should be interpreted in conjunction with the patient's medical history, clinical presentation and other laboratory findings. Performed By: #### PRSAC ### # [facility] ([facility]) [address] [place] [address] VIR PROTEIN C ACTIVITY Collected: 05/29/2025 1:48 P M Status: COMPLETED Source: [facility] TYPE CODE TESTS RESULT OUT OF RANGE REFERENCE UNITS LAB PROTC PROTEIN C ACTIVITY 137 70-140 % Performed By: #### PROTC ### # [facility] ([facility]) [address] [place] [address] VIR ANTI THROMBIN 3 FUNCT Collected: 05/29/2025 1:4 8 PM Status: COMPLETED Source: [facility] TYPE CODE TESTS RESULT OUT OF RANGE REFERENCE UNITS LAB ATT3 ANTI THROMBIN 3 FUNCT 93 83-128 % Performed By: #### ATT3 #### [facility] ([facility]) [address] [place] [address] VIR US OB TRANSVAGINAL Observed: 03/20/2025 8:37 AM Status: F Source: [facility] EPIC Order Comment: US OB TRANSVA GINAL No LMP recorded. FINDINGS: A single intrauterine gestational sac is [...] BY: ELECTRONICALLY SIGNED BY: Aman Amado MD CBC AND AUTO DIFF Collected: 01/01/2025 9:09 AM Status: COMPLETED Source: [facility] TYPE CODE TESTS RESULT OUT OF RANGE REFERENCE UNITS LAB WBC(LOINC) WBC COUNT 10.5 4.0-11.0 X10E9/L LAB RBC(LOINC) RBC COUNT 4.45 3.80-5.20 X10E12/L LAB HGB(LOINC) HEMOGLOBIN 12.8 11.7-15.5 g/dL LAB HCT(LOINC) HEMATOCRIT 38.0 35-47 % LAB MCV(LOINC) MCV 85 80-100 fL LAB MCH(LOINC) MCH 28.8 27-34 pg LAB MCHC(LOINC) MCHC 33.8 32-36 g/dL LAB RDW(LOINC) RDW 14.2 11.5-15.0 % LAB PLTC(LOINC) PLATELET COUNT 308 150-450 X10E9 /L LAB MPV(LOINC) MPV 8.7 7-12 fL LAB NEUT(LOINC) % NEUTROPHILS 57.9 % LAB LYMP(LOINC) % LYMPHOCYTES 36.4 % LAB MONO(LOINC) % MONOCYTES 4.1 % LAB EOS(LOINC) % EOSINOPHILS 0.9 % LAB BASO(LOINC) % BASOPHILS 0.7 % LAB ANEUT(LOINC) ABSOLUTE NEUTROPHIL 6.0 1.5-6.6 X10E9/L LAB ALYMP(LOINC) ABSOLUTE LYMPHOCYTE 3.8 High 1.0-3.5 X10E9/L LAB AMONO(LOINC) ABSOLUTE MONOCYTE 0.4 0-0.9 X10E9/L LAB AEOS(LOINC) ABSOLUTE EOSINOPHIL 0.1 0.0-0.4 X10E9/L LAB ABASO(LOINC) ABSOLUTE BASOPHIL 0.1 0.0-0.2 X10E9/L Performed By: #### CBCA, FEP R, LIVR, 2275-4, 2132-9, 8, 13587-7 #### [facility] ([id number]) [address] [place] [address], [address] [address] #### 22469-2 #### [facility] ([id number]) [address] [place] [address] IRON PROFILE Collected: 9:09 AM Status: COMPLETED Source: [facility] TYPE CODE TESTS RESULT OUT OF RANGE REFERENCE UNITS LAB FE(LOINC) IRON 36 Low 50-170 ug/dL LAB TIBC(LOINC) IRON BINDING 346 250-425 ug/dL LAB SAT(LOINC) IRON SATURATION 10 Low 15-50 % SATURATION Performed By: #### CBCA, FEP R, LIVR, 2275-12, 2132-05, 8, 56577-2 #### [facility] ([id number]) [address] [place] [address], [place] [address] #### 56257-0 #### [facility] ([id number]) [address] [place] [address] LIVER PANEL Collected: 01/01/2025 9:09 AM S tatus: COMPLETED Source: [facility] TYPE CODE TESTS RESULT OUT OF RANGE REFERENCE UNITS LAB ALK2(LOINC) ALKALINE PHOSPHATASE 95 39-130 U/L LAB AST2(LOINC) AST 18 0-41 U/L LAB ALT(LOINC) ALT 24 0-31 U/L LAB TBIL2(LOINC) BILIRUBIN, TOTAL 0.4 0.3-1.2 mg /dL LAB DBIL(LOINC) BILIRUBIN,DIRECT 0.2 0.0-0.4 mg/ dL LAB ALB2(LOINC) ALBUMIN 4.1 3.2-5.3 g/dL LAB TP2(LOINC) TOTAL PROTEIN 7.1 6.0-8.0 g/dL Performed By: #### CBCA, FEP R, LIVR, 2275-4, 9, 8, 08512-6 #### [facility] ([id number]) [address] [place] [address], [address] [place] [address] #### 87483-0 #### [facility] ([id number]) [address] [place] [address] FERRITIN Collected: 01/01/2025 9:09 AM S tatus: COMPLETED Source: [facility] TYPE CODE TESTS RESULT OUT OF RANGE REFERENCE UNITS LAB FERR(LOINC) FERRITIN 40 11-307 ng/mL Performed By: #### CBCA, FEP R, LIVR, 2276-4, 2131-9, 4-8, 51065-1 #### [facility] ([id number]) [address] [place] [address] #### 54431-2 #### [facility] ([id number]) [address] [place] [address] VITAMIN B12 Collected: 01/01/2025 9:09 AM S tatus: COMPLETED Source: [facility] TYPE CODE TESTS RESULT OUT OF RANGE REFERENCE UNITS LAB B12(LOINC) VITAMIN B12 379 180-914 pg/mL Performed By: #### CBCA, FEP R, LIVR, 6-4, 2131-9, 4-8, 95446-3 #### [facility] ([id number]) [address] [place] [address], [facility] [address] [place] [address] #### 17104-7 #### [facility] ([id number]) [address] [place] [address] FOLIC ACID Collected: 01/01/2025 9:09 AM S tatus: COMPLETED Source: [facility] TYPE CODE TESTS RESULT OUT OF RANGE REFERENCE UNITS LAB FOLI(LOINC) FOLIC ACID 4.0 Low >5.8 ng/mL Result Comment: NEW REFERENC E RANGE Performed By: #### CBCA, FEP R, LIVR, 2276-4, 2131-9, 2284-8, 91625-1 #### [facility] ([id number]) [address] [place] [address], [address] [place] [address] #### 66689-8 #### [facility] ([id number]) [address] [place] [address] VITAMIN D 25 HYD TOT Collected: 01/01/2025 9:09 AM Status: COMPLETED Source: [facility] TYPE CODE TESTS RESULT OUT OF RANGE REFERENCE UNITS LAB VITD(LOINC) VITAMIN D 25 HYD TOT 32.4 30-100 ng/mL Result Comment: Vitamin D status 25 [place] Vitamin D Deficiency <20 ng/mL Insufficiency 20-29 ng/mL Sufficiency 30-100 ng/mL Toxicity >100 ng/mL NOTE: A pediatric reference range has not been established by the fur dyer of this kit. The [place] [employer] recommends a Vitamin D level of = or >20ng/mL in infants and children. Performed By: #### CBCA, FEP R, LIVR, 2276-4, 2132-9, 2284-8, 60462-5 #### [facility] ([id number]) [address] [place] [address], [address] [place] [address] #### 70509-3 #### [facility] ([id number]) [address] [place] [address] THIAMIN (VITAMIN B1), WB Collected: 9:09 AM Status: COMPLETED Source: [facility] TYPE CODE TESTS RESULT OUT OF RANGE REFERENCE UNITS LAB VTB1BR(LOINC) Thiamin (Vitamin B1), WB 118 70-180 nmol/L Result Comment: NOTE ADDITIONAL INFORMATION This test was developed and its performance characteristics determined by [facility] in a manner consistent with CLIA requirements. This test has not been cleared or approved by the U.S. Food and Drug Administration. Test Performed by: [facility] [address] [place] [address] Associate Professor Of Automation: Jayce Daniels Ph.D.; CLIA# [id number] Performed By: #### CBCA, FEP R, LIVR, 2276-4, 2132-9, 2284-8, 73012-4 #### [facility] ([id number]) [address] [facility], [address] [place] [address] #### 24742-9 #### [facility] ([id number]) [address] [facility] [place] [address] XR SPINE LUMBAR 2 OR 3 VWS Observed: 12/15/2024 1:41 PM Status: COMPLETED Source: [facility] XR SPINE LUMBAR 2 OR 3 VWS [...] Jovanni Gallegos MD on 12/15/2024 1:53 PM ALLERGIES DATE TYPE / CODE NAME / CODE REACTION SEVERITY SOURCE 11/28/2018 DRUG INGREDI/[id number]( SNOMED CT) [facility]ATR[facility]AN Anaphylaxis High [facility] ENCOUNTERS ADMIT/DISCHARGE ACCOUNT NUMBER ADMITTING ENCOUNTER CLASS LOCATION SOURCE 06/10/2025/06/10/20 [id number] Ambulatory Building:NOM S BCP OB [facility] 05/29/2025/05/29/20 [id number] Ambulatory Building:PTH _PCJ [facility] 05/29/2025/05/29/20 [id number] Ambulatory Buildin 4 [facility] 05/29/2025/05/29/20 [id number] Ambulatory Building:PTH _MFMUS [facility] 05/14/2025/05/14/20 [id number] Ambulatory Building:NOM S BCP OB [facility] EPIC 04/20/2025/04/20/20 25 [id number] Ambulatory Building:NOM S BCP OB [facility] EPIC 03/20/2025/03/20/20 25 [id number] Ambulatory Building:NOM S BCP OB [facility] EPIC 03/20/2025/03/20/20 25 [id number] Ambulatory Building:NOM S BCP OB [facility] 01/01/2025/01/02/20 25 [id number] Ambulatory Buildin 0 [facility] 01/01/2025/01/02/20 25 [id number] Ambulatory Building:PFM _LAB [facility] 12/15/2024/12/16/19 25 [id number] Emergency Building:PFM _EDRoom: H4Bed: H4 [facility] 10/10/2024/10/10/19 25 [id number] Ambulatory Building:[facility] 08/25/2024/08/25/20 24 [id number] Ambulatory Building:[facility] 06/12/2024/06/12/20 24 [id number] Ambulatory Building:[facility] PAYERS ENCOUNTER GUARANTOR PAYER SUBSCRIBER SOURCE 06/10/2025 MADDIE AGUERO: [place] [address]Biy: () Primary Insurance:[employer] milan Number: [id number] Date:2024-07-07 MADDIE AGUERO: [id number] [place] [address] [facility] 05/29/2025 MADDIE AGUERO: [place] [address]Vme: () Primary Insurance:[employer] cy Number: [id number] Date:2023-09-10 MADDIE AGUERO: [id number] [place] [address] [facility] 05/29/2025 MADDIE PACHECODOB: [place] [address]Frx: (HP) Primary Insurance:[employer]ENEFITS/[facility] cy Number: [id number] Date:2023-09-10 MADDIE PACHECOB: [id number] [place] [address] [facility] 05/29/2025 MADDIE PACHECODOB: [place] [address]Vng: (HP) Primary Insurance:[employer]EF[employer]/[facility] cy Number: [id number] Date:2023-09-10 MADDIE PACHECOB: [id number] [place] [address] [facility] 05/14/2025 MADDIE Hodge VINIB: [place] [address]Wjq: (HP) Primary Insurance:[employer] olicy Number: [id number] Date:2024-07-07 MADDIE PACHECOB: [id number] [place] [address] [facility] 04/20/2025 MADDIE Hodge VINIB: [place] [address]Xph: (HP) Primary Insurance:[employer] olicy Number: [id number] Date:2024-07-07 MADDIE Hodge VINIB: [id number] [place] [address] [facility] 03/20/2025 MADDIE Hodge TARADOB: [place] [address]Atj: (HP) Primary Insurance:[employer] olicy Number: [id number] Date:2024-07-07 MADDIE MARTINIB: [id number] [place] [address] [facility] 03/20/2025 MADDIE MARTINIB: [place] [address]Sve: (HP) Primary Insurance:[employer]EP [facility] Number: [id number] Date:2024-07-07 MADDIE MARTINIB: [id number] [place] [address] [facility] 01/01/2025 MADDIE CARDOZO VINIB: [place] [address]Dkj: (HP) Primary Insurance:[employer] cy Number: [id number] Date:2023-09-10 MADDIE PACHECOB: [id number] [place] [address] [facility] 01/01/2025 MADDIE PACHECOB: [place] [address]Ptb: (HP) Primary Insurance:[employer] BENEFITS/WHIRLPOOLPoli cy Number: [id number] Date:2023-09-10 MADDIE PACHECOB: [id number] [place] [address] [facility] 12/15/2024 MADDIE PACHECOB: [place] [address]Fpr: (HP) Primary Insurance:[employer] BENEFITS/WHIRLPOOLPoli cy Number: [id number] Date:2023-09-10 MADDIE PACHECOB: [id number] [place] [address] [facility] 10/10/2024 MADDIE PACHECOB: [place] [address]Ssj: (HP) Primary Insurance:[employer] MEDICAIDPolicy Number: [id number] Date:2023-01-08 MADDIE MARTINIB: [id number] [place] [address] [facility] EPIC 10/10/2024 Secondary Insurance:HEALTHSCOPEP olicy Number: [id number] Date:2024-07-07 MADDIE MARTINIB: [id number] [place] [address] [facility] EPIC 08/25/2024 MADDIE PACHECODOB: [place] [address]Jio: (HP) Primary Insurance:[employer] MEDICAIDPolicy Number: [id number] Date:2023-01-08 MADDIE MARTINIB: [id number] [place] [address] [facility] EPIC 08/25/2024 Secondary Insurance:HEALTHSCOPEP olicy Number: [id number] Date:2024-07-18 MADDIE MARTINIB: [id number] [place] [address] [facility] EPIC 06/12/2024 MADDIE MARTINIB: [place] [address]Hto: (HP) Primary Insurance:[employer] MEDICAIDPolicy Number: [id number] Date:2023-01-08 MADDIE MARTINIB: [id number] [place] [address] [facility] EPIC
--- OUTSIDE RECORDS SUMMARY | 2025-06-10 08:50 | XMS_ITS | Encounter Summary ---
Author Organization [facility] Address [address] [facility] [place] [address] Care Team Providers Care Sewing Machine Repairer Name Role Phone Riddhi Plata MD Primary Care Provider [phone] Reason for Visit * Reason Comments Routine Visit Encounter Details Date Type Department Care Team (Latest Contact Info) Description 06/10/2025 8:50 AM EDT Routine [facility] [address] [place] [address] Nena Spicer, RONALD [address] [place] [address] 21 weeks gestation of ([facility]); Well woman exam; Second trimester ([facility]); Screen for STD (sexually transmitted disease); Well woman exam with routine gynecological exam; Diabetes mellitus screening; Iron deficiency anemia, unspecified iron deficiency anemia type Social History Tobacco Use Types Packs/Day Years [...] Sign Reading Time Taken Comments Blood Pressure 122/72 06/10/2025 9:13 AM EDT Pulse - - Temperature - - Respiratory Rate - - Oxygen Saturation - - Inhaled Oxygen Concentration - - Weight 105 kg (231 lb) 06/10/2025 9:13 AM EDT Height - - Body Mass Index 43.65 10/10/2024 3:32 PM EST documented in this encounter Progress Notes * Nena Spicer NP - 06/10/2025 8:50 AM EDT Reason for Appointment: Patient ID: Shira Jett is a 30 y.o. female who presents for Routine Visit Patient presents today for Annual Exam., STD Check., and Return OB appointment. MEDICATIONS Current Outpatient Medications Medication Instructions albuterol HFA 90 mcg/act inhaler 2 puffs, Inhalation, Every 4 hours PRN busPIRone (Buspar) 15 MG tablet TAKE 1 TABLET BY MOUTH 2 TIMES A DAY (MORNING AND BEFORE BEDTIME) citalopram (CELEXA) 20 mg, Oral, Every morning cyanocobalamin (Vitamin B-12) 1000 MCG/ML injection labetalol (NORMODYNE) 200 mg, Oral, 3 times daily omeprazole (PriLOSEC) [address] capsule TAKE 1 CAPSULE BY MOUTH DAILY 30 MINUTES BEFORE MORNING MEAL Vit-Fe Fumarate-FA ( Vitamins) 28-0.8 MG tablet 1 tablet, Oral, Daily ALLERGIES Allergies Allergen Reactions Sumatriptan Unknown and Anaphylaxis IMITREX FOR MIGRAINES PROBLEMS Active Ambulatory Problems Diagnosis Date Noted Morbid obesity with body mass index of 60.0-69.9 in adult ([facility]) 01/26/2023 Polycystic ovarian disease 01/26/2023 Primary hypertension 01/26/2023 Adjustment disorder with anxiety 11/30/2021 Amnesia 05/17/2023 Anxiety 07/07/2019 Anemia 06/26/2019 Depression 06/13/2019 Disorder of endocrine system 05/17/2023 Family history of diabetes during 11/28/2021 Family history of thrombosis 03/17/2022 Frequent headaches 05/17/2023 Gastroesophageal reflux disease 12/15/2019 Gestational diabetes mellitus (GDM) ([facility]) 12/09/2018 History of diet controlled gestational diabetes mellitus (GDM) 11/30/2021 Iron deficiency anemia 12/29/2019 Irregular periods 05/17/2023 Menorrhagia with regular cycle 05/17/2023 Asthma ([facility]) 12/09/2018 Class 3 severe obesity due to excess calories with serious comorbidity and body mass index (BMI) of50.0 to 59.9 in adult ([facility]) 05/17/2023 Nausea and vomiting 05/17/2023 Pneumonia due to infectious organism 07/30/2022 Preeclampsia in period ([facility]) 11/26/2021 Acute pulmonary embolism (HCC) 05/17/2023 Single subsegmental pulmonary embolism without acute cor pulmonale (HCC) 05/17/2023 Seasonal allergic rhinitis due to pollen 12/15/2019 Thyroid nodule 05/17/2023 Urinary tract infection without hematuria 05/17/2023 LUCIANO on CPAP 02/22/2023 History of pulmonary embolism 03/17/2022 H/O gastric bypass 04/20/2025 Resolved Ambulatory Problems Diagnosis Date Noted No Resolved Ambulatory Problems Past Medical History: Diagnosis Date Acute memory impairment COVID 02/2020 Encounter for insertion of Mirena IUD GERD without esophagitis Gestational diabetes ([facility]) H/O blood clots H/O: hypertension High blood pressure History of being hospitalized Hormone imbalance Intrauterine device surveillance Irregular bleeding Morbid obesity with BMI of 50.0-59.9, adult ([facility]) Nausea Nausea with vomiting Pneumonia 07/30/2022 hypertension ([facility]) Pulmonary embolism (HCC) 11/2021 Well woman exam HISTORY PAST MEDICAL HISTORY SOCIAL HISTORY Past Medical History: Diagnosis Date Acute memory impairment Anemia Asthma (HCC) COVID 02/2020 Depression Encounter for insertion of Mirena IUD Frequent headaches GERD without esophagitis Gestational diabetes ([facility]) H/O blood clots H/O gastric bypass H/O: hypertension High blood pressure History of being hospitalized Pt was re-admitted to [facility] for HTN (11/2021) , Pt had a baby (11/21/21) Hormone imbalance Intrauterine device surveillance Irregular bleeding Morbid obesity with BMI of 50.0-59.9, adult ([facility]) Nausea Nausea with vomiting Pneumonia 07/30/2022 hypertension ([facility]) Pulmonary embolism (HCC) 11/2021 Rt. ; [facility] post Well woman exam Social History Tobacco Use Smoking status: Never Smokeless tobacco: Never Substance Use Topics Alcohol use: Never Comment: Caffeine intake: 1-2 cups per day coffee Drug use: Never FAMILY HISTORY Family History Problem Relation Name Age of Onset Hypertension Mother Diabetes Father Hypertension Father Mental illness Father Cancer Maternal Grandmother Cancer Paternal Grandmother Diabetes Paternal Grandfather SURGICAL HISTORY Past Surgical History: Procedure Laterality Date CT ANGIOGRAM HEART CORONARY 07/30/2022 CT ANGIOGRAM TAVR 07/30/2022 CT ANGIOGRAM HEART CORONARY 11/23/2018 CT ANGIOGRAM TAVR 11/23/2018 GASTRIC BYPASS 04/23/2024 PELVIC LAPAROSCOPY 11/03/2022 with removal of IUD US GUIDED FINE PERCUTANEOUS ASPIRATION 06/14/2020 US GUIDED FINE PERCUTANEOUS ASPIRATION 06/14/2020 REVIEW OF SYSTEMS Review of Systems: Review of Systems Constitutional: Negative. HENT: Negative. Eyes: Negative. Respiratory: Negative. Cardiovascular: Negative. Gastrointestinal: Negative. Genitourinary: Negative. Musculoskeletal: Negative. Skin: Negative. Neurological: Negative. All other systems reviewed and are negative. Hematological: Negative. Endocrine: Negative. Allergic/Immunologic: Negative. OBJECTIVE Objective: Physical Exam Constitutional: Appearance: Normal appearance. She is well-developed. Genitourinary: Vulva normal. Breasts: Breasts are soft. Right: Normal. Left: Normal. Cardiovascular: Rate and Rhythm: Normal rate and regular rhythm. Pulmonary: Effort: Pulmonary effort is normal. Breath sounds: Normal breath sounds. Abdominal: General: Bowel sounds are normal. There is no distension. Palpations: Abdomen is soft. Tenderness: There is no abdominal tenderness. There is no guarding or rebound. Musculoskeletal: General: No swelling. Normal range of motion. Right lower leg: No edema. Left lower leg: No edema. Neurological: Mental Status: She is alert and oriented to person, place, and time. Skin: General: Skin is warm and dry. Psychiatric: Mood and Affect: Mood normal. Behavior: Behavior normal. Vitals and nursing note reviewed. Exam conducted with a stem teacher present. Vitals: Estimated body mass index is 44.37 kg/m?? as calculated from the following: Height as of 10/10/24: 5' 1 . Weight as of 05/14/25: 234 lb 12.8 oz. BP: Patient's last menstrual period was 01/09/2025. ASSESSMENT & PLAN ICD-10-CM 1. 21 weeks gestation of ([facility]) Z3A.21 POCT urinalysis dipstick manually resulted 2. Well woman exam Z01.419 3. Second trimester ([facility]) Z34.92 4. Screen for STD (sexually transmitted disease) Z11.3 SURESWAB(R) ADVANCED VAGINITIS PLUS, TMA CHLAMYDIA TRACHOMATIS (GENITO/STI) Neisseria gonorrhea DNA probe, direct 5. Well woman exam with routine gynecological exam Z01.419 Pap Smear HPV DNA probe, amplified Return OB/Annual Exam: Patient presents today for an annual exam/routine obstetrics appointment. Patient is currently 21w5d . Patient is doing well and states she has no complaints. Pap/cultures was obtained without difficulty and patient was given msAFP order on 05/14/2025 to have obtained. Patient was given A1Cand CBC to have completed due to Gastric Surgery she did have. Orders Placed This Encounter Procedures HPV DNA probe, amplified CHLAMYDIA TRACHOMATIS (GENITO/STI) Neisseria gonorrhea DNA probe, direct POCT urinalysis dipstick manually resulted Follow Up: Patient is to return to our office in 4 weeks for routine OB appointment Documented by Leslye Chairez LPN on behalf of: Nena Spicer NP documented in this encounter Plan of Treatment Upcoming Encounters Date Type Department Care Team (Late st Contact Info) Description 07/08/2025 8:30 AM EDT Routine [facility] [address] [facility] [place] [address] Winter English PA [address] [place] [address] Scheduled Orders Name Type Priority Associated Diagnoses Orde r Schedule SURESWAB(R) ADVANCED VAGINITIS PLUS, TMA Pathology and Cytology Routine Screen for STD (sexually transmitted disease) Ordered: 06/10/2025 CHLAMYDIA TRACHOMATIS (GENITO/STI) Lab Routine Screen for STD (sexually transmitted disease) Ordered: 06/10/2025 Neisseria gonorrhea DNA probe, direct Lab Routine Screen for STD (sexually transmitted disease) Ordered: 06/10/2025 Pap Smear Pathology and Cytology Routine Well woman exam with routine gynecological exam Ordered: 06/10/2025 HPV DNA probe, amplified Microbiology Routine Well woman exam with routine gynecological exam Ordered: 06/10/2025 Hemoglobin A1c Lab Routine 21 weeks gestation of ([facility]) Second trimester ([facility]) Diabetes mellitus screening Expected: 06/10/2025 (Approximate), Expires: 06/10/2026 CBC and differential Lab Routine 21 weeks gestation of ([facility]) Second trimester ([facility]) Expected: 06/10/2025 (Approximate), Expires: 06/10/2026 documented as of this encounter Goals Goal Patient Goal Type Associated Problems Recent Progress Patient-Stated? Author Help patient manage antidepressant medication Care Plan Patient on antidepressant monitoring plan Riddhi Atkinson MD Baseline PHQ-9 Care Plan Baseline PHQ-9 Riddhi Atkinson MD documented as of this encounter Procedures Procedure Name Priority Date/Time Associated Diagnosis Comments POCT URINALYSIS DIPSTICK Routine 06/10/2025 9:14 AM EDT 21 weeks gestation of ([facility]) documented in this encounter Results * (ABNORMAL) POCT urinalysis dipstick manually resulted (06/10/2025 9:14 AM EDT) Color, UA Yellow Clarity, UA Clear Glucose, UA Negative Negative - 2000(110) ++++ mg/dL Bilirubin, UA Negative Negative - 4(70) +++ mg/dL Ketones, UA Negative Negative - 160(16) ++++ mg/dL Spec Grav, UA 1.025 1 - 1.03 Blood, UA Negative Negative - 50 Raul/mcL pH, UA 6.0 5 - 9 Protein, UA Trace Negative - 2000(20) ++++ mg/dL Urobilinogen, UA 2.0 0.2 - 12 mg/dL Leukocytes, UA Negative Negative - 500+++ Ramo/mcL Nitrite, UA Negative Negative - Positive Urine 06/10/2025 9:14 AM EDT Nena Spicer NP POINT OF CARE TEST ENTER/EDIT ORDERABLES Final Result documented in this encounter Visit Diagnoses Diagnosis 21 weeks gestation of ([facility]) Well woman exam Routine general medical examination at a health care facility Second trimester ([facility]) state, incidental Screen for STD (sexually transmitted disease) Screening examination for venereal disease Well woman exam with routine gynecological exam Routine gynecological examination Diabetes mellitus screening Screening for diabetes mellitus Iron deficiency anemia, unspecified iron deficiency anemia type documented in this encounter Additional Health Concerns Active Problems Noted Date Diagnosed Date Patient on antidepressant monitoring plan 2023 Baseline PHQ-9 02/01/2024 documented as of this encounter Care Teams Sewing Machine Repairer Relationship Specialty Start Date End Date Riddhi Plata MD [address] [id number] PCP - General Family Medicine 01/16/23 documented as of this encounter
--- OUTSIDE RECORDS SUMMARY | 2025-06-10 20:34 | XMS_ITS | Encounter Summary ---
Author Organization [facility] Address [address] [facility] [place] [address] Care Team Providers Care Diamond Assorter Name Role Phone Riddhi Plata MD Primary Care Provider [phone] Encounter Details Date Type Department Care Team (Late Contact Info) Description 06/01/2025 External Result Encounter [facility] T[facility] [address] [place] [address] Gonzalez Morales DO [address] [facility] [address] [place], [facility] Social History Tobacco Use Types Packs/Day Years [...] 07/08/2025 8:30 AM EDT Routine [facility] Nichole TAYLOR [address] [place] [address] Winter English PA [address] [facility] [address] [place], [place] [id number] documented as of this encounter Goals Goal Patient Goal Type Associated Problems Recent Progress Patient-Stated? Author Help patient manage antidepressant medication Care Plan Patient on antidepressant monitoring plan Riddhi Atkinson MD Baseline PHQ-9 Care Plan Baseline PHQ-9 Riddhi Atkinson MD documented as of this encounter Procedures Procedure Name Priority Date/Time Associated Diagnosis Comments US OB 14+ WEEKS ANATOMY SCAN 06/01/2025 5:47 PM EDT documented in this encounter Results * US OB 14+ weeks anatomy scan (06/01/2025 5:47 PM EDT) Anatomical Region Laterality Modality Body Ultrasound 06/01/2025 5:47 PM EDT Narrative 06/01/2025 5:47 PM EDT THIS EXAM WAS PERFORMED AT [facility] NAME: TARA PERKINS : 1995 SEX: F Accession Number: [id number] ORDERING PHYSICIAN: ESTER MARIE REFERRING PHYSICIAN: GONZALEZ MORALES Coding ----- --------- Procedures [id number]: Ultrasound, uterus, real time with image documentation, and maternal evaluation plus detailed anatomic examination, transabdominal approach;single or first gestation 81053: Ultrasound, uterus, real time with image documentation, [...] weight 108 kg, 239 lb. BMI 46.68 kg/m???. Initial BMI 46.68 kg/m??? Method ----- --------- Transabdominal and transvaginal ultrasound [...] EFW (oz) 11 oz EFW by: Hadlock ([id number]) Extended Tibia 24.7 mm 18w 5d 17% Natalya Junior Systems Analyst 5.8 mm CM 4.6 mm 37% Nicolaides [...] Heart/Thorax: RVOT view. LVOT view. 3-vessel view. 1-ggwzkc-znjclij view. Situs. Aortic arch view. Bicaval view. [...] insertion noted. Recommendations ----- --------- Please see MFM documentation from today. The patient is scheduled in four to six week(s) to complete anatomic survey. Subsequent follow up or other follow up as clinically determined by primary OB provider unless otherwise specified by MFM. Results forwarded to ordering provider so they can follow up with the patient as necessary. The copy-to physician of this order is GONZALEZ Jenkins The ordering physician of this order is ESTER Lopez Procedure Note Radiology, Radiologist, MD - 06/01/2025 THIS EXAM WAS PERFORMED AT [facility] NAME: TARA PERKINS : 1995 SEX: F Accession Number: [id number] ORDERING PHYSICIAN: ESTER MARIE REFERRING PHYSICIAN: GONZALEZ MORALES Coding ----- --------- Procedures [id number]: Ultrasound, uterus, real time with imagedocumentation, and maternal evaluation plus detailed anatomic examination, transabdominalapproach;single or first gestation 67427: Ultrasound, uterus, real time with imagedocumentation, transvaginal [...] ft. Weight 108 kg, 239 lb. Initial [id number] kg, 239 lb. BMI 46.68 kg/m???. Initial BMI 46.68 kg/m??? Method ----- --------- Transabdominal and transvaginal ultrasound [...] EFW (oz) 11 oz EFW by: Hadlock ([id number]) Extended Tibia 24.7 mm 18w 5d 17% Natalya Junior Systems Analyst 5.8 mm CM 4.6 mm 37% Nicolaides [...] Heart/Thorax: RVOT view. LVOT view. 3-vessel view. 3-zpjoac-hhidwwn view.Situs. Aortic arch view. Bicaval view. Ductal [...] insertion noted. Recommendations ----- --------- Please see [facility] documentation from today. The patient is scheduled in four to six week(s) to complete anatomicsurvey. Subsequent follow up or other follow up as clinically determined byprimary OB provider unless otherwise specified by [facility]. Results forwarded to ordering provider so they can follow up with thepatient as necessary. The copy-to physician of this order is GONZALEZ Jenkins The ordering physician of this order is ESTER Lopez us Gonzalez Morales DO [facility] OB US PROCEDURES Final Resul t documented in this encounter Visit Diagnoses Not on filedocumented in this encounter Additional Health Concerns Active Problems Noted Date Diagnosed Date Patient on antidepressant monitoring plan 2023 Baseline PHQ-9 02/01/2024 documented as of this encounter Care Teams Diamond Assorter Relationship Specialty Start Date End Date Riddhi Plata MD [address] [place] [address] PCP - General Family Medicine 01/16/23 documented as of this encounter
--- OUTSIDE RECORDS SUMMARY | 2025-06-10 20:34 | XMS_ITS | Encounter Summary ---
Author Organization [employer] Address [id number] [address] [place] [address] Care Team Providers Care Filter Operator Name Role Phone Riddhi Plata MD Primary Care Provider [phone] Encounter Details Date Type Department Care Team (Late st Contact Info) Description 07/26/2023 Telephone [facility] [address] [place] [address] Tal Nunez MD [address] [place], [place] [id number] Social History Tobacco Use Types Packs/Day Years [...] Info) Description 07/09/2025 9:45 AM EDT Appointment [facility] US Imaging [address] [place] [address] 07/09/2025 11:30 AM EDT Office Visit Maternal- Medicine at [facility] [address] [place] [address] Sana Lima MD [address] [place] [address] documented as of this encounter Goals Goal [...] documented as of this encounter Care Teams Filter Operator Relationship Specialty Start Date End Date Riddhi Plata MD PCP - General Family Medicine 12/09/23 documented as of this encounter
--- OUTSIDE RECORDS SUMMARY | 2025-06-10 20:34 | XMS_ITS | Encounter Summary ---
Author Organization [employer] Address [id number] [address] [place] [address] Care Team Providers Care Certified Tumor Registrar Name Role Phone Riddhi Plata MD Primary Care Provider [phone] Reason for Visit * Reason Comments Med Refill Encounter Details Date Type Department Care Team (Late st Contact Info) Description 07/14/2024 Refill [facility] General Surgery-Bariatric [address] [facility] [place] [phone] Moriah Lira PAPamelaC [address] [facility] [address] [place] [address] Social History Tobacco Use Types Packs/Day Years Used Date Smoking Tobacco: Never Smokeless Tobacco: Never Alcohol Use Standard Drinks/Week Comments Not Currently 0 (1 standard drink = 0.6 oz pur e alcohol) social [facility] Util[employer] Answer Date Recorded In the past 12 months has [employer], gas, oil, or water company threatened to [...] Info) Description 07/09/2025 9:45 AM EDT Appointment [facility] US Imaging [address] [place] [address] 07/09/2025 11:30 AM EDT Office Visit Maternal- Medicine at [facility] [address] [place] [address] Sana Lima MD [address] [place] [address] documented as of this encounter Goals Goal [...] documented as of this encounter Care Teams Certified Tumor Registrar Relationship Specialty Start Date End Date Riddhi Plata MD PCP - General Family Medicine 12/09/23 documented as of this encounter
--- OUTSIDE RECORDS SUMMARY | 2025-06-10 20:34 | XMS_ITS | Encounter Summary ---
Author Organization [facility] Address [address] [facility] [place] [address] Care Team Providers Care Commercial Insurance Underwriter Name Role Phone Ridhdi Plata MD Primary Care Provider [phone] Encounter Details Date Type Department Care Team (Late Contact Info) Description 06/02/2025 Abstract [facility] [address] [place] [address] Bin Morales DO [address] [facility] [address] [place], [facility] Social History Tobacco Use Types Packs/Day [...] Info) Description 07/08/2025 8:30 AM EDT Routine [facility] TAYL[facility] [address] [place] [address] Winter English PA [address] [facility] [address] [place], [place] [id number] documented as of this encounter Goals Goal [...] documented as of this encounter Care Teams Commercial Insurance Underwriter Relationship Specialty Start Date End Date Riddhi Plata MD [address] [place] [address] PCP - General Family Medicine 01/16/23 documented as of this encounter
--- OUTSIDE RECORDS SUMMARY | 2025-06-10 20:34 | XMS_ITS | Clinical Summary ---
Author Organization [employer] tem Address [id number] [address] [place] [address] Care Team Providers Care Ice Scraper Name Role Phone Riddhi Plata MD Primary Care Provider [phone] Allergies Active Allergy Reactions Criticality Noted Date Comments Sumatriptan Anaphylaxis,Other (S ee Comments) High 11/28/2018 IMITREX FOR MIGRAINES Medications albuterol (PROVENTIL HFA;VENTOLIN HFA) 90 mcg/actuation inhalerIndications :Mild intermittent asthma, unspecified whether complicated Inhale 2 puffs every 4 (four) hours as needed for wheezing. 18 g 022 Active citalopram (CeleXA) 20 mg tabletIndications: anxiety with depression Take 1 tablet (20 mg total) by mouth nightly Indications: anxiousness associated with depression. Active cyanocobalamin (VITAMIN B-12) 1,000 mcg/mL injectionIndicatio ns:History of Arlene-en-Y gastric bypass,Postsurgica l malabsorption,Maln utrition following gastrointestinal surgery,B12 deficiency Inject 1 mL (1,000 mcg total) into the appropriate muscle every 30 (thirty) days. 3 mL 1 025 Active syringe with needle (BD LUER-KARENA SYRINGE) 3 mL 25 x 1 /2 syringeIndications :History of Arlene-en-Y gastric bypass,Postsurgica l malabsorption,Maln utrition following gastrointestinal surgery,B12 deficiency 1 SYRG by miscellaneous route every 30 (thirty) days. 3 each Active omeprazole (PriLOSEC OTC) 20 mg EC tablet Take 1 tablet (20 mg total) by mouth in the morning. Active 115/iron/folic acid ( 19 ORAL) Take by mouth. Activ e labetaloL (NORMODYNE) 200 mg tablet Take 1 tablet (200 mg total) by mouth 3 (three) times a day. Active busPIRone (BUSPAR) 15 mg tablet Take 1 tablet (15 mg total) by mouth 2 (two) times a day as needed. Active sennosides-docusat e sodium (SENOKOT-S) 8.6-50 mg Take 1 tablet by mouth in the morning. 30 tablet Active aspirin 81 mgIndications:20 weeks gestation of ,Chronic hypertension affecting Take 1 tablet (81 mg total) by mouth in the morning. 30 tablet 025 Active blood sugar diagnostic stripIndications:2 0 weeks gestation of ,History of gestational diabetes in prior , currently Check fingersticks 4 times daily, fasting and 1 hour after the start of a meal 100 strip Active enoxaparin (LOVENOX) 40 mg/0.4 mL syringeIndications :20 weeks gestation of ,History of maternal pulmonary embolus Inject 0.4 mL (40 mg total) under the skin in the morning and at bedtime. 12 mL Active cholecalciferol 1,000 units tabletIndications: Vitamin D deficiency Take 1 tablet (1,000 Units total) by mouth in the morning for 30 days. 30 tablet 3 025 2024 Active ferrous sulfate 325 (65 FE) MG tabletIndications: History of Arlene-en-Y gastric bypass,Postsurgica l malabsorption,Maln utrition following gastrointestinal surgery,Iron deficiency Take 1 tablet (325 mg total) by mouth in the morning. 90 tablet 1 Active folic acid (FOLVITE) 400 MCG tablet Take 1 tablet (400 mcg total) by mouth in the morning. 30 tablet 6 025 Active lisinopriL (PRINIVIL,ZESTRIL) 20 mg tablet Take 0.5 tablets (10 mg total) by mouth in the morning. 2024 Discontinued omeprazole (PriLOSEC) 40 mg capsule Take 1 capsule (40 mg total) by mouth every morning before breakfast. 90 capsule 024 2024 Discontinued folic acid (FOLVITE) 1 mg tabletIndications: History of Arlene-en-Y gastric bypass,Postsurgica l malabsorption,Maln utrition following gastrointestinal surgery,Folate deficiency Take 1 tablet (1 mg total) by mouth in the morning. 90 tablet 025 2024 Discontinued ferrous sulfate 325 (65 FE) MG tabletIndications: History of Arlene-en-Y gastric bypass,Postsurgica l malabsorption,Maln utrition following gastrointestinal surgery,Iron deficiency Take 1 tablet (325 mg total) by mouth in the morning. 90 tablet 025 2024 Discontinued( Reorder) ondansetron (ZOFRAN) 4 mg tablet Take 1 tablet (4 mg total) by mouth every 8 (eight) hours as needed for nausea or vomiting. 2024 Discontinued Active Problems Problem Noted Date Diagnosed Date H/O gastric bypass 12/30/2024 Postsurgical malabsorption 12/30/2024 Malnutrition following gastrointestinal surgery 12/30/2024 Class 3 severe obesity with body mass index (BMI) of 60.0 to 69.9 in adult 04/23/2024 LUCIANO on CPAP 02/22/2023 History of pulmonary embolism 03/17/2022 Family history of thrombosis 03/17/2022 Asthma 12/09/2018 Estimated Date of Delivery Comme nts Yes 10/16/2025 Based on last me nstrual period of 01/09/2025 Resolved Problems Problem Noted Date Diagnosed Date Resolved Date Pneumonia due to infectious organism, unspecified laterality, unspecified part of lung 07/30/2022 05/24/2023 Gestational diabetes 12/09/2018 024 Preeclampsia, severe 11/23/2018 024 Encounters Date Type Department Care Team Description 06/08/2025 Orders Only Maternal- Medicine at [facility] [address] [place] [address] Ester Pratt MD History of Arlene-en-Y gastric bypass; Postsurgical malabsorption; Malnutrition following gastrointestinal surgery; Folate deficiency; Iron deficiency 06/01/2025 Results Follow-Up Maternal- Medicine at [facility] [address] [place] [phone] Ester Pratt MD B-type natriuretic peptide, CBC without diff, Comprehensive metabolic panel, Additional followed-up results: 05/29/2025 11:00 AM EDT Office Visit Maternal- Medicine at [facility] [address] [place] [phone] Ester Pratt MD History of maternal pulmonary embolus (Primary Dx); 20 weeks gestation of ; Chronic hypertension affecting ; History of pre-eclampsia in prior , currently in second trimester; History of gestational diabetes in prior , currently in second trimester; History of prediabetes; Bariatric surgery status complicating , second trimester; Severe obesity due to excess calories affecting , antepartum (CMS-HCC); Obstructive sleep apnea; History of gestational diabetes in prior , currently ; Depression affecting ; Anxiety disorder affecting , antepartum 05/29/2025 9:30 AM EDT - 05/29/2025 11:59 PM EDT Hospital Encounter [facility] Imaging [address] [place] [phone] Screening, , for anatomic survey Discharge Disposition: Home 05/29/2025 Orders Only Maternal- Medicine at [facility] [address] [place] [address] Winter Gibbons LPN 20 weeks gestation of (Primary Dx); Chronic hypertension affecting ; History of pre-eclampsia in prior , currently in second trimester; History of gestational diabetes in prior , currently in second trimester; History of prediabetes; Bariatric surgery status complicating , second trimester; Severe obesity due to excess calories affecting , antepartum (CMS-HCC); History of maternal pulmonary embolus; Obstructive sleep apnea; History of gestational diabetes in prior , currently ; Depression affecting ; Anxiety disorder affecting , antepartum 05/29/2025 Travel 05/28/2025 Orders Only Maternal- Medicine at [facility] [address] [place] [phone] Ref Prov, Not In System 05/28/2025 Abstract Maternal- Medicine at [facility] [address] [place] [phone] Ester Pratt MD 05/26/2025 Refill [facility] [address] [place] [phone] Moriah Lira PA-C History of Arlene-en-Y gastric bypass; Postsurgical malabsorption; Malnutrition following gastrointestinal surgery; B12 deficiency 05/21/2025 Refill [facility] [address] [place] [phone] Moriah Lira PA-C History of Arlene-en-Y gastric bypass; Postsurgical malabsorption; Malnutrition following gastrointestinal surgery; B12 deficiency 04/26/2025 Refill [facility] [address] [place] [phone] Moriah Lira PA-C History of Arlene-en-Y gastric bypass; Postsurgical malabsorption; Malnutrition following gastrointestinal surgery; B12 deficiency from Last 3 Months Immunizations No known immunizations Family History Medical History Relation Name Comments Arthritis Father Philip COPD Father Philip Clotting disorder Father Philip Depression Father Philip Diabetes Father Philip Hypertension Father Philip Mental illness Father Philip defects Maternal Grandfather Breast cancer Maternal Grandmother Bhavana Cancer Maternal Grandmother Bhavana Diabetes Maternal Grandmother Bhavana Ovarian cancer Maternal Grandmother Bhavana Anemia Mother Lynn Autoimmune disease Mother Lynn thyroid d isease Diabetes Mother Lynn Hypertension Mother Lynn defects Paternal Grandfather Shola Diabetes Paternal Grandfather Shola Asthma Paternal Grandmother Gary Autoimmune disease Paternal Grandmother Gary l upus Breast cancer Paternal Grandmother Gary Cancer Paternal Grandmother Gary Diabetes Paternal Grandmother Gary Anesthesia problems Neg Hx Autism Neg Hx Bleeding Disorder Neg Hx Developmental delay Neg Hx Down syndrome Neg Hx Heart defect Neg Hx Sudden Neg Hx Relation Name Status Comments Father Philip Alive Maternal Grandfather Maternal Grandmother Bhavana Mother Lynn Alive Paternal Grandfather Shola Paternal Grandmother Gary Social History Tobacco Use Types Packs/Day Years Used Date Smoking Tobacco: Never Smokeless Tobacco: Never Tobacco Cessation:Counseling Given: Not Answered Alcohol Use Standard Drinks/Week Comments Not Currently 0 (1 standard drink = 0.6 oz pur e alcohol) social [employer] Answer Date Recorded In the past [...] Pulse 51 05/29/2025 10:20 AM EDT Temperature 36.6 C (97.8 F) 12/15/2024 1:00 PM EDT Respiratory Rate 18 12/15/2024 2:31 PM EDT Oxygen Saturation 100% 01/01/2025 11: 00 AM EDT Inhaled Oxygen Concentration - - Weight 103.5 kg (228 lb 3.2 oz) 025 10:20 AM EDT Height 154.9 cm (5' 0.98 ) 05/29/2025 1 0:20 AM EDT Body Mass Index 43.14 05/29/2025 10:20 AM EDT Plan of Treatment Upcoming Encounters Date Type Department Care Team (Late st Contact Info) Description 07/09/2025 9:45 AM EDT Appointment [facility] Imaging [address] [place] [address] 07/09/2025 11:30 AM EDT Office Visit Maternal- Medicine at [facility] [address] [place] [address] Sana Lima MD [address] [place] [address] Health Maintenance Due Date Last Done Comments Pap Smear 2015 DTaP,Tdap and Td Vaccines (7 - Td or Tdap) 12/01/2018 12/01/2008, 01/14/1999, 10/23/1996, Additional history exists Depression Screening 04/23/2025 04/23/2024 Adult BMI Follow Up Plan 05/01/2025 05/01/2024 Influenza Vaccine 05/11/2025 08/11/2019, 07/11/2011 Adult BMI Screening 05/29/2026 05/29/2025 Tobacco Screening 05/29/2026 05/29/2025 Goals Goal Patient Goal Type Associated Problems Recent Progress Patient-Stated? Author safe discharge to home General Yes Kate Blanton, RN Note: Evaluation of progress towards goal: safe transition from hospital to home with family support. Medical Devices Not on file Procedures Procedure Name Priority Date/Time Associated Diagnosis Comments ANTI THROMBIN 3 FUNCT Routine 05/29/2025 1:48 PM EDT 20 weeks gestation of History of maternal pulmonary embolus PROTEIN C ACTIVITY Routine 05/29/2025 1: 48 PM EDT 20 weeks gestation of History of maternal pulmonary embolus PROTEIN S ACTIVITY Routine 05/29/2025 1: 48 PM EDT 20 weeks gestation of History of maternal pulmonary embolus IRON AND TIBC Routine 05/29/2025 1:48 PM EDT 20 weeks gestation of Bariatric surgery status complicating , second trimester FERRITIN Routine 05/29/2025 1:48 PM EDT 20 weeks gestation of Bariatric surgery status complicating , second trimester FOLATE Routine 05/29/2025 1:48 PM EDT 20 weeks gestation of Bariatric surgery status complicating , second trimester ZINC, SERUM Routine 05/29/2025 1:48 PM EDT 20 weeks gestation of Bariatric surgery status complicating , second trimester VITAMIN D 25 HYDROXY Routine 05/29/2025 1:48 PM EDT 20 weeks gestation of Bariatric surgery status complicating , second trimester VITAMIN B12 Routine 05/29/2025 1:48 PM EDT 20 weeks gestation of Bariatric surgery status complicating , second trimester THIAMIN (VITAMIN B1), WB Routine 05/29/2025 1:48 PM EDT 20 weeks gestation of Bariatric surgery status complicating , second trimester LDH Routine 05/29/2025 1:48 PM EDT 20 weeks gestation of Chronic hypertension affecting URIC ACID Routine 05/29/2025 1:48 PM EDT 20 weeks gestation of Chronic hypertension affecting PROTEIN CREAT RATIO Routine 05/29/2025 1 :48 PM EDT 20 weeks gestation of Chronic hypertension affecting COMPREHENSIVE METABOLIC PANEL Routine 05/29/2025 1:48 PM EDT 20 weeks gestation of Chronic hypertension affecting CBC (NO DIFF) Routine 05/29/2025 1:48 PM EDT 20 weeks gestation of Chronic hypertension affecting B-TYPE NATRIURETIC PEPTIDE Routine 05/29/2025 1:48 PM EDT 20 weeks gestation of Chronic hypertension affecting US MFM COMPREHENSIVE ANATOMIC SURVEY Routine 05/29/2025 12:07 PM EDT Screening, , for anatomic survey US PREG LMTD 1 OR MORE FETUS Routine 05/28/2025 11:41 AM EDT UNLISTED LAB TEST Routine 05/28/2025 11: 15 AM EDT TYPE AND SCREEN Routine 03/25/2025 TYPE AND SCREEN Routine 03/25/2025 DRUG SCREEN, URINE Routine 03/25/2025 CBC (NO DIFF) Routine 03/25/2025 HEMOGLOBIN A1C Routine 03/25/2025 BASIC METABOLIC PANEL Routine 03/25/2025 CBC AND DIFFERENTIAL Routine 03/25/2025 HEPATITIS C(HCV) ANTIBODY W/REFLEX TO PCR Routine 03/25/2025 HIV 1&2 AB/AG SCREEN (P24 AG) Routine 03/25/2025 RUBELLA IGG IMMUNE STATUS Routine 03/25/2025 HEPATITIS B SURFACE ANTIGEN Routine 03/25/2025 HIV 1&2 AB/AG SCREEN (P24 AG) Routine 03/25/2025 SYPHILIS TOTAL(UNKNOWN SYPHILIS STATUS) Routine 03/25/2025 from Last 3 Months Results * Thiamin (Vitamin B1), WB (05/29/2025 1:48 PM EDT) THIAMIN (VITAMIN B1), WB 123 70 - 180 nmol/L 06/02/2025 2:13 PM EDT [facility] Comment: ADDITIONAL INFORMATION This test was developed and its performance characteristics determined by [facility] in a manner consistent with CLIA requirements. This test has not been cleared or approved by the U.S. Food and Drug Administration. Test Performed by: [facility] [place] [address] Gyroscopic Instrument Mechanic: Jayce Daniels Ph.D.; CLIA# [id number] Blood Venous blood / Unknown Venipuncture / Unknown 05/29/2025 1:48 PM EDT 05/29/2025 1:48 PM EDT us Ester Pratt MD LAB BLOOD ORDERABLES Final Resul t [facility] [address] [place] [phone], * Zinc, Serum (05/29/2025 1:48 PM EDT) ZINC, S 62 60 - 106 mcg/dL 05/30/2025 2:14 PM EDT [facility] Comment: ADDITIONAL INFORMATION This test was developed and its performance characteristics determined by [facility] in a manner consistent with CLIA requirements. This test has not been cleared or approved by the U.S. Food and Drug Administration. Test Performed by: [facility] [address] [id number] Gyroscopic Instrument Mechanic: Jayce Daniels Ph.D.; CLIA# [id number] Blood Venous blood / Unknown Venipuncture / Unknown 05/29/2025 1:48 PM EDT 05/29/2025 1:48 PM EDT us Ester Pratt MD LAB BLOOD ORDERABLES Final Resul t Performing Organization Address City/[facility]/ZIP Co de Phone Number [facility] [address] [place] [phone], * Protein creat ratio (05/29/2025 1:48 PM EDT) URINE PROTEIN, RANDOM (MG/L) 110 <120 mg/L 05/29/2025 3:58 PM EDT [facility] URINE CREATININE,RDM 138.80 mg/dL 05/29/2025 3:58 PM EDT [facility] U/PRO/CONDUCTOR YARD RATIO CALC 0.08 <=0.20 05/29/2025 3:58 PM EDT [facility] Urine Urine specimen collection, clean catch / Unknown Collection / Unknown 05/29/2025 1:48 PM EDT 05/29/2025 1:48 PM EDT Narrative [facility] - 05/29/2025 3:58 PM EDT Nephrotic Syndrome is associated with ratios >3.5 us Ester Pratt MD URINE ORDERABLES Final Result [facility] [address] [place] [address], [place] [phone] * LDH (05/29/2025 1:48 PM EDT) Pathologist [facility] LDH 164 100 - 235 U/L 05/29/2025 3:58 PM EDT [facility] Blood Venous blood / Unknown Venipuncture / Unknown 05/29/2025 1:48 PM EDT 05/29/2025 1:48 PM EDT Ester Pratt MD LAB BLOOD ORDERABLES Final Resul t [facility] [address] [place] [address], [place] [phone] * (ABNORMAL) Iron and TIBC (05/29/2025 1:48 PM EDT) [facility] IRON 71 50 - 170 ug/dL 05/29/2025 3:58 PM EDT [facility] TRANSFERRIN 332 168 - 336 mg/dL 05/29/2025 3:58 PM EDT [facility] IRON BINDING 465(H) 250 - 425 ug/dL 05/29/2025 3:58 PM EDT [facility] IRON SATURATION 15 15 - 50 % SATURATION 05/29/2025 3:58 PM EDT [facility] Blood Venous blood / Unknown Venipuncture / Unknown 05/29/2025 1:48 PM EDT 05/29/2025 1:48 PM EDT us Ester Pratt MD LAB BLOOD ORDERABLES Final Resul t [facility] [address] [place] [address], [place] [phone] * (ABNORMAL) Vitamin D 25 hydroxy (05/29/2025 1:48 PM EDT) Pathologist [facility] VITAMIN D 25 HYD TOT 27.1(L) 30.0 - 100.0 ng/mL 05/29/2025 4:18 PM EDT [facility] Blood Venous blood / Unknown Venipuncture / Unknown 05/29/2025 1:48 PM EDT 05/29/2025 1:48 PM EDT Narrative [facility] - 05/29/2025 4:18 PM EDT Vitamin D status 25 [place] Vitamin D Deficiency <20 ng/mL Insufficiency 20-29 ng/mL Sufficiency 30-100 ng/mL Toxicity >100 ng/mL NOTE: A pediatric reference range has not been established by the parking lot attendant and cashier of this kit. The [place] [employer] recommends a Vitamin D level of = or >20ng/mL in infants and children. Ester Pratt MD LAB BLOOD ORDERABLES Final Resul t Performing Organization Address City/[facility]/ZIP Co de Phone Number [facility] [address] [place] [address], [place] [phone] * (ABNORMAL) Protein S activity (05/29/2025 1:48 PM EDT) [facility] PROTEIN S ACTIVITY 55(L) 64 - 149 % 06/05/2025 9:14 AM EDT [facility] Comment: Oral contraceptives, hormonal therapy, [...] PM EDT 05/29/2025 1:48 PM EDT us Ester Pratt MD LAB BLOOD ORDERABLES Final Resul t Performing Organization Address City/[facility]/ZIP Co de Phone Number [facility] [address] [place] [address], [place] [phone] * Protein C activity (05/29/2025 1:48 PM EDT) [facility] PROTEIN C ACTIVITY 137 70 - 140 % 06/05/2025 9:14 AM EDT [facility] Blood Venous blood / Unknown Venipuncture / Unknown 05/29/2025 1:48 PM EDT 05/29/2025 1:48 PM EDT Ester Pratt MD LAB BLOOD ORDERABLES Final Resul t Performing Organization Address City/[facility]/ZIP Co de Phone Number [facility] [address] [place] [address], [place] [phone] * Anti thrombin 3 funct (05/29/2025 1:48 PM EDT) [facility] ANTI THROMBIN 3 FUNCT 93 83 - 128 % 06/05/2025 9:14 AM EDT [facility] Blood Venous blood / Unknown Venipuncture / Unknown 05/29/2025 1:48 PM EDT 05/29/2025 1:48 PM EDT us Ester Pratt MD LAB BLOOD ORDERABLES Final Resul t [facility] [address] [place] [address], [place] [phone] * (ABNORMAL) CBC without diff (05/29/2025 1:48 PM EDT) Only the most recent of2 resultswithin the time period is included. [facility] WBC 9.8 4 - 11 x10E9/L 05/29/2025 3:30 PM EDT [facility] RBC Count 3.81 3.8 - 5.2 X10E12/L 05/29/2025 3:30 PM EDT [facility] Hemoglobin 11.8 11.7 - 15.5 g/dL 05/29/2025 3:30 PM EDT [facility] Hematocrit 33.8(L) 35 - 47 % 05/29/2025 3:30 PM EDT [facility] MCV 89 80 - 100 fL 05/29/2025 3:30 PM EDT [facility] MCH 30.9 27 - 34 pg 05/29/2025 3:30 PM EDT [facility] MCHC 34.8 32 - 36 g/dL 05/29/2025 3:30 PM EDT [facility] RDW 13.5 11.5 - 15 % 05/29/2025 3:30 PM EDT [facility] Platelet Count 245 150 - 450 X10E9/L 05/29/2025 3:30 PM EDT [facility] MPV 8.4 7 - 12 fL 05/29/2025 3:30 PM EDT [facility] Blood Venous blood / Unknown Venipuncture / Unknown 05/29/2025 1:48 PM EDT 05/29/2025 1:48 PM EDT Ester Pratt MD LAB BLOOD ORDERABLES Final Resul t [facility] [address] [place] [address], [place] [phone] * Uric acid (05/29/2025 1:48 PM EDT) URIC ACID 4.4 2.6 - 7.2 mg/dL 05/29/2025 3:58 PM EDT [facility] Blood Venous blood / Unknown Venipuncture / Unknown 05/29/2025 1:48 PM EDT 05/29/2025 1:48 PM EDT us Ester Pratt MD LAB BLOOD ORDERABLES Final Resul t [facility] [address] [place] [address], [place] [phone] * B-type natriuretic peptide (05/29/2025 1:48 PM EDT) BNP 23 <=100 pg/mL 05/29/2025 4:03 PM EDT [facility] Blood Venous blood / Unknown Venipuncture / Unknown 05/29/2025 1:48 PM EDT 05/29/2025 1:48 PM EDT us Ester Pratt MD LAB BLOOD ORDERABLES Final Resul t [facility] [address] [place] [address], * Folate (05/29/2025 1:48 PM EDT) Pathologist [facility] FOLIC ACID 13.3 >5.8 ng/mL 05/29/2025 4:18 PM EDT [facility] Blood Venous blood / Unknown Venipuncture / Unknown 05/29/2025 1:48 PM EDT 05/29/2025 1:48 PM EDT us Ester Pratt MD LAB BLOOD ORDERABLES Final Resul t [facility] [address] [place] [address], [place] [phone] * Ferritin (05/29/2025 1:48 PM EDT) Pathologist [facility] FERRITIN 15 11 - 307 ng/mL 05/29/2025 4:12 PM EDT [facility] Blood Venous blood / Unknown Venipuncture / Unknown 05/29/2025 1:48 PM EDT 05/29/2025 1:48 PM EDT us Ester Pratt MD LAB BLOOD ORDERABLES Final Resul t [facility] [address] [place] [address], [place] [phone] * Vitamin B12 (05/29/2025 1:48 PM EDT) VITAMIN B12 243 180 - 914 pg/mL 05/29/2025 4:20 PM EDT [facility] Blood Venous blood / Unknown Venipuncture / Unknown 05/29/2025 1:48 PM EDT 05/29/2025 1:48 PM EDT us Ester Pratt MD LAB BLOOD ORDERABLES Final Resul t [facility] [address] [place] [address], * (ABNORMAL) Comprehensive metabolic panel (05/29/2025 1:48 PM EDT) Pathologist [facility] SODIUM 139 134 - 146 mmol/L 05/29/2025 3:58 PM EDT [facility] POTASSIUM 3.6 3.5 - 5.0 mmol/L 05/29/2025 3:58 PM EDT [facility] CHLORIDE 106 98 - 109 mmol/L 05/29/2025 3:58 PM EDT [facility] CARBON DIOXIDE 19(L) 22 - 32 mmol/L 05/29/2025 3:58 PM EDT [facility] ANION GAP 14 5 - 15 mmol/L 05/29/2025 3:58 PM EDT [facility] BLOOD UREA NITROGEN 9 5 - 23 mg/dL 05/29/2025 3:58 PM EDT [facility] CREATININE 0.45 0.40 - 1.00 mg/dL 05/29/2025 3:58 PM EDT [facility] Comment:METHOD TRACEABLE TO IDMS STANDARD GLUCOSE 128(H) 65 - 99 mg/dL 05/29/2025 3:58 PM EDT [facility] CALCIUM 8.8 8.5 - 10.5 mg/dL 05/29/2025 3:58 PM EDT [facility] TOTAL PROTEIN 6.5 6.0 - 8.0 g/dL 05/29/2025 3:58 PM EDT [facility] ALBUMIN 3.7 3.2 - 5.3 g/dL 05/29/2025 3:58 PM EDT [facility] ALKALINE PHOSPHATASE 69 39 - 130 U/L 05/29/2025 3:58 PM EDT [facility] LABORATORY AST 12 <=41 U/L 05/29/2025 3:58 PM EDT [facility] ALT 11 <=31 U/L 05/29/2025 3:58 PM EDT [facility] BILIRUBIN,TOTAL 0.3 0.3 - 1.2 mg/dL 05/29/2025 3:58 PM EDT [facility] EGFR Non-Race Dependent >90 >=60 ml/min/1.7 3sq.m 05/29/2025 3:58 PM EDT [facility] Comment: Reported eGFR is based on the CKD-EPI 2020 equation that does not use a race coefficient. Blood Venous blood / Unknown Venipuncture / Unknown 05/29/2025 1:48 PM EDT 05/29/2025 1:48 PM EDT us Ester Pratt MD LAB BLOOD ORDERABLES Final Resul t [facility] [address] [place] [address], [place] [phone] * US MFM COMPREHENSIVE ANATOMIC SURVEY (05/29/2025 12:07 PM EDT) Anatomical Region Laterality Modality OB-CLAY PIGEON SETTER Ultrasound 05/29/2025 10:1 3 AM EDT Narrative 06/01/2025 5:47 PM EDT NAME: TARA PERKINS : 1995 SEX: F Accession Number: [id number] ORDERING PHYSICIAN: ESTER PRATT REFERRING PHYSICIAN: GONZALEZ PASCAL Coding ----- --------- Procedures [id number]: Ultrasound, uterus, real time with image documentation, and maternal evaluation plus detailed anatomic examination, transabdominal approach;single or first gestation [id number]: Ultrasound, uterus, real time with image documentation, [...] EFW (oz) 11 oz EFW by: Hadlock ([id number]) Extended Tibia 24.7 mm 18w 5d 17% Natalya Can Machine Operator 5.8 mm CM 4.6 mm 37% Nicolaides [...] Heart/Thorax: RVOT view. LVOT view. 3-vessel view. 4-fatiqq-svuycjr view. Situs. Aortic arch view. Bicaval view. [...] insertion noted. Recommendations ----- --------- Please see [facility] documentation from today. The patient is scheduled in four to six week(s) to complete anatomic survey. Subsequent follow up or other follow up as clinically determined by primary OB provider unless otherwise specified by MFM. Results forwarded to ordering provider so they can follow up with the patient as necessary. Procedure Note Ester Pratt MD - 06/01/2025 NAME: TARA PERKINS : 1995 SEX: F Accession Number: [id number] ORDERING PHYSICIAN: ESTER PRATT REFERRING PHYSICIAN: GONZALEZ PASCAL Coding ----- --------- Procedures [id number]: Ultrasound, uterus, real time with imagedocumentation, and maternal evaluation plus detailed anatomic examination, transabdominalapproach;single or first gestation [id number]: Ultrasound, uterus, real time with imagedocumentation, transvaginal [...] ft. Weight 108 kg, 239 lb. Initial kg, 239 lb. BMI 46.68 kg/m . [...] EFW (oz) 11 oz EFW by: Hadlock ([id number]) Extended Tibia 24.7 mm 18w 5d 17% Natalya Can Machine Operator 5.8 mm CM 4.6 mm 37% Nicolaides [...] Heart/Thorax: RVOT view. LVOT view. 3-vessel view. 2-uvpggw-yqlagkv view.Situs. Aortic arch view. Bicaval view. Ductal [...] byprimary OB provider unless otherwise specified by MFM. Results forwarded to ordering provider so they can follow up with thepatient as necessary. us Ester Pratt MD IMG US ORDERABLES Final Result * Ultrasound limited 1 or more fetus (05/28/2025 11:41 AM EDT) Anatomical Region Laterality Modality OB-CLAY PIGEON SETTER Ultrasound us Not In System Ref Prov IMG US ORDERABLES Final R esult * Unlisted Lab Test (05/28/2025 11:15 AM EDT) us Not In System Ref Prov LAB BLOOD ORDERABLES Jumana l Result Performing Organization Address City/[facility] Co de Phone Number MANUALLY TRANSCRIBED RESULTS * HIV 1&2 AB/AG Screen (P24 AG) (03/25/2025) Only the most recent of2 resultswithin the time period is included. HIV 1&2 AB/AG non reactive MAN UALLY TRANSCRIBED RESULTS Blood Venous blood / Unknown us Not In System Ref Prov LAB BLOOD ORDERABLES Jumana l Result Performing Organization Address City/[facility] Co de Phone Number MANUALLY TRANSCRIBED RESULTS * Rubella IGG immune status (03/25/2025) Rubella immune IgG 1.59 MANUALLY TRANSCRIBED RESULTS Blood Venous blood / Unknown us Not In System Ref Prov LAB BLOOD ORDERABLES Jumana l Result Performing Organization Address City/[facility] Co de Phone Number MANUALLY TRANSCRIBED RESULTS * Syphilis Total (Unknown Syphilis Status) (03/25/2025) Syphilis non reactive MANUALL Y TRANSCRIBED RESULTS Blood Venous blood / Unknown us Not In System Ref Prov LAB BLOOD ORDERABLES Jumana l Result Performing Organization Address City/[facility]/ZIP Co de Phone Number MANUALLY TRANSCRIBED RESULTS * Hepatitis C(HCV) Ab w/ Reflex to PCR (03/25/2025) Pathologist [facility] Hepatitis C Antibody non reactive MANUALLY TRANSCRIBED RESULTS Blood Venous blood / Unknown us Not In System Ref Prov LAB BLOOD ORDERABLES Jumana l Result MANUALLY TRANSCRIBED RESULTS * Drug Screen, Urine (03/25/2025) Pathologist [facility] Methadone negative MANUALLY TRANSCRIBED RESULTS Opiates negative MANUALLY TRANSCRIBED RESULTS Amphetamine/Methamp hetamine negative MANUALLY TRANSCRIBED RESULTS Cocaine Metabolite negative M ANUALLY TRANSCRIBED RESULTS Phencyclidine negative MANUAL LY TRANSCRIBED RESULTS Thc Marijuana, Urine negative MANUALLY TRANSCRIBED RESULTS Oxycodone negative MANUALLY TRANSCRIBED RESULTS Barbiturates negative MANUALL Y TRANSCRIBED RESULTS Benzodiazepines negative MANU ALLY TRANSCRIBED RESULTS Urine us Not In System Ref Prov URINE ORDERABLES Final Re sult Performing Organization Address [facility] Co de Phone Number MANUALLY TRANSCRIBED RESULTS * Hepatitis B surface antigen (03/25/2025) Pathologist [facility] Hepatitis B Surface Antigen negative MANUALLY TRANSCRIBED RESULTS Blood Venous blood / Unknown us Not In System Ref Prov LAB BLOOD ORDERABLES Jumana l Result Performing Organization Address City/[facility] Co de Phone Number MANUALLY TRANSCRIBED RESULTS * (ABNORMAL) CBC and differential (03/25/2025) Hemoglobin 12.3 12.0 - 16.0 g/dL MANUALLY TRANSCRIBED RESULTS Hematocrit 37 36 - 46 % MANUALLY TRANSCRIBED RESULTS Platelets 243 150 - 399 10*3/uL MANUALLY TRANSCRIBED RESULTS Auto WBC 12.4(A) 3.3 - 10.0 10*3/mL MANUALLY TRANSCRIBED RESULTS Blood us Gonzalez R Carmen DO LAB BLOOD ORDERABLES Final Resu lt MANUALLY TRANSCRIBED RESULTS * Type and screen (03/25/2025) Only the most recent of2 resultswithin the time period is included. Antibody Screen negative MANUALLY TRANSCRIBED RESULTS Blood Venous blood / Unknown us Not In System Ref Prov BLOOD BANK TEST ORDERABLE S Final Result MANUALLY TRANSCRIBED RESULTS * Hemoglobin A1c (03/25/2025) Hemoglobin A1C 5.0 4.0 - 6.0 % MANUALLY TRANSCRIBED RESULTS Blood Venous blood / Unknown us Gonzalez R Carmen DO LAB BLOOD ORDERABLES Final Resu lt Performing Organization Address City/[facility]/ZIP Co de Phone Number MANUALLY TRANSCRIBED RESULTS * Basic Metabolic Panel (03/25/2025) Glucose 97 mg/dL MANUALLY TRANSCRIBED RESULTS Blood Venous blood / Unknown us Gonzalez R Carmen DO LAB BLOOD ORDERABLES Final Resu lt Performing Organization Address City/[facility] Co de Phone Number MANUALLY TRANSCRIBED RESULTS from Last [address] [place] [address] [employer] Advance Directives * Full Code (Latest Code Status on File) Date Activated Date Inactivated Comments 04/23/2024 11:06 AM 04/24/2024 4:47 PM * Full Code Date Activated Date Inactivated Comments 07/30/2022 11:42 PM 07/31/2022 2:48 PM * Full Code Date Activated Date Inactivated Comments 11/24/2018 10:44 PM 11/27/2018 4:48 PM Care Teams Ice Scraper Relationship Specialty Start Date End Date Riddhi Plata MD PCP - General Family Medicine 12/09/23
--- OUTSIDE RECORDS SUMMARY | 2025-06-10 20:34 | XMS_ITS | Encounter Summary ---
Author Organization [employer] tem Address [id number] [address] [place] [address] Care Team Providers Care Marketing Segment Manager Name Role Phone Riddhi Plata MD Primary Care Provider [phone] Reason for Visit * Reason Comments Med Refill Encounter Details Date Type Department Care Team (Late st Contact Info) Description 05/21/2025 Refill [facility] General Surgery-Bariatric [address] [facility] [place] [address] Moriah Lira PAPamelaC [address] [facility] [address] [place] [address] History of Arlene-en-Y gastric bypass; Postsurgical malabsorption; Malnutrition following gastrointestinal surgery; B12 deficiency Social History Tobacco Use Types Packs/Day Years Used Date Smoking Tobacco: Never Smokeless Tobacco: Never Alcohol Use Standard Drinks/Week Comments Not Currently 0 (1 standard drink = 0.6 oz pur e alcohol) social [facility] Utilities Answer Date Recorded In the past 12 months has th e [employer], gas, oil, or water company threatened to [...] Info) Description 07/09/2025 9:45 AM EDT Appointment [facility] US Imaging [address] [place] [phone] 07/09/2025 11:30 AM EDT Office Visit Maternal- Medicine at [facility] [address] [place] [phone] Sana Lima MD [address] [facility] [place] [address] documented as of this encounter Goals Goal Patient Goal Type Associated Problems Recent Progress Patient-Stated? Author safe discharge to home General Yes Kate Blanton, RN Note: Evaluation of progress towards goal: safe transition from hospital to home with family support. 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
--- OUTSIDE RECORDS SUMMARY | 2025-06-10 20:34 | XMS_ITS | Encounter Summary ---
Author Organization [employer] tem Address [id number] [address] [place] [address] Care Team Providers Care Beach Lifeguard Name Role Phone Riddhi Plata MD Primary Care Provider [phone] Reason for Visit * Reason Comments Med Refill Encounter Details Date Type Department Care Team (Late st Contact Info) Description 05/26/2025 Refill [facility] General Surgery-Bariatric [address] [facility] [place] [phone] Moriah Lira PAPamelaC [address] [facility] [address] [place] [address] History of Arlene-en-Y gastric bypass; Postsurgical malabsorption; Malnutrition following gastrointestinal surgery; B12 deficiency Social History Tobacco Use Types Packs/Day Years Used Date Smoking Tobacco: Never Smokeless Tobacco: Never Alcohol Use Standard Drinks/Week Comments Not Currently 0 (1 standard drink = 0.6 oz pur e alcohol) social [facility] Utilities Answer Date Recorded In the past 12 months has th e [employer], gas, oil, or water company threatened to [...] Telephone Encounter - Moriah Lira PA-C - 05/26/2025 8:12 AM EDT Needs appt documented in this encounter Plan of Treatment Upcoming Encounters Date Type Department Care Team (Late st Contact Info) Description 07/09/2025 9:45 AM EDT Appointment [facility] US Imaging [address] [place] [address] 07/09/2025 11:30 AM EDT Office Visit Maternal- Medicine at [facility] [address] [place] [phone] Sana Lima MD [address] [place] [place] [address] documented as of this encounter Goals Goal [...] documented as of this encounter Care Teams Beach Lifeguard Relationship Specialty Start Date End Date Riddhi Plata MD PCP - General Family Medicine 12/09/23 documented as of this encounter
--- OUTSIDE RECORDS SUMMARY | 2025-06-10 20:34 | XMS_ITS | Encounter Summary ---
Author Organization [employer] tem Address [id number] [address] [place] [address] Care Team Providers Care Producer Assistant Name Role Phone Riddhi Plata MD Primary Care Provider [phone] Encounter Details Date Type Department Care Team (Late st Contact Info) Description 07/06/2023 Telephone [facility] Pulmonary/Sleep Medicine [address] [address] Lyla Butt RN Social History [...] Butt RN - 07/06/2023 10:36 AM EDT Pharmacist Manager spoke to patient and informed per Dr [...] [facility] US Imaging [address] [place] [address] 07/09/2025 11:30 AM EDT Office Visit Maternal- Medicine at [facility] [address] [place] [address] Sana Lima MD [address] [place] [address] documented as of this encounter Goals Goal [...] documented as of this encounter Care Teams Producer Assistant Relationship Specialty Start Date End Date Riddhi Plata MD PCP - General Family Medicine 12/09/23 documented as of this encounter
--- OUTSIDE RECORDS SUMMARY | 2025-06-10 20:34 | XMS_ITS | Encounter Summary ---
Author Organization [employer] tem Address [facility] [id number] [address] [place] [address] Care Team Providers Care Supervisor Grinding Name Role Phone Riddhi Plata MD Primary Care Provider [phone] Reason for Visit * Reason Onset Date Comments Med Refill 04/26/2025 Encounter Details Date Type Department Care Team (Late st Contact Info) Description 04/26/2025 Refill [facility] General Surgery-Bariatric [address] [facility] [place] [phone] Moriah Lira PA-C [address] [facility] [address] [place] [address] History of Arlene-en-Y gastric bypass; Postsurgical malabsorption; Malnutrition following gastrointestinal surgery; B12 deficiency Social History Tobacco Use Types Packs/Day Years Used Date Smoking Tobacco: Never Smokeless Tobacco: Never Alcohol Use Standard Drinks/Week Comments Not Currently 0 (1 standard drink = 0.6 oz pur e alcohol) social C Utilities Answer Date Recorded In the past 12 months has [employer], gas, oil, or water company threatened [...] encounter Miscellaneous Notes * Telephone Encounter - Nilam Stallworth RN - 04/26/2025 4:04 AM EDT 6 month supply prescribed 3 months ago. documented in this encounter Plan of Treatment Upcoming Encounters Date Type Department Care Team (Late st Contact Info) Description 07/09/2025 9:45 AM EDT Appointment [facility] US Imaging [address] [place] [address] 07/09/2025 11:30 AM EDT Office Visit Maternal- Medicine at [facility] [address] [facility] [address] Sana Lima MD [address] [place] [address] documented as of this encounter Goals Goal [...] as of this encounter Care Teams Supervisor Grinding Relationship Specialty Start Date End Date Riddhi Plata MD PCP - General Family Medicine 12/09/23 documented as of this encounter
--- OUTSIDE RECORDS SUMMARY | 2025-06-10 20:34 | XMS_ITS | Encounter Summary ---
Author Organization [employer] tem Address [facility] [place]-[id number] [address] [place] [address] Care Team Providers Care Park Recreation Manager Name Role Phone Riddhi Plata MD Primary Care Provider [phone] Encounter Details Date Type Department Care Team (Late st Contact Info) Description 06/20/2023 Telephone [facility]/Sleep Medicine [address] [address] Allyssa Carter LPN Social History [...] to be completed. Number to call is [phone], Tracking number is [id number]. documented in this encounter Plan of Treatment Upcoming Encounters Date Type Department Care Team (Late st Contact Info) Description 07/09/2025 9:45 AM EDT Appointment - [facility] US Imaging [address] [place] [address] 07/09/2025 11:30 AM EDT Office Visit Maternal- Medicine at [address] [place] [address] Sana Lima MD [address] [place] [address] documented as of this encounter Goals Goal [...] documented as of this encounter Care Teams Park Recreation Manager Relationship Specialty Start Date End Date Riddhi Plata MD PCP - General Family Medicine 12/09/23 documented as of this encounter
--- OUTSIDE RECORDS SUMMARY | 2025-06-10 20:34 | XMS_ITS | Encounter Summary ---
Author Organization [employer] tem Address [id number] [address] [place] [address] Care Team Providers Care Angle Shearer Name Role Phone Riddhi Plata MD Primary Care Provider [phone] Encounter Details Date Type Department Care Team (Late st Contact Info) Description 06/08/2023 Telephone [facility]/Sleep Medicine [address] [address] Lyla Butt RN Social History [...] having chest pain or any breathing/heart problems. Expanded Duty Dental Assistant returned call and spoke with Fuentes. Informed in Dr Vidal's office note states, Given history of previous pulmonary emboli and isolated impaired DLCO, will obtain echocardiogram to re-evaluate right ventricular systolic pressure and exclude pulmonary hypertension. Fuentes spoke to Valorie and was informed Office note, PFT report and ECHO from 2018. Informed there was a ECHO completed 12-01-21 at [facility] Everywhere. Fuentes stated, Valorie will refax everything including ECHO from 2021. Fuentes statedwill contact patient and re-schedule ECHO until approval can be obtained. Have 5 business days to perform P2P. Needs to be completed by end of business on 06-13-23 or will bedenied. [facility] [phone] Ref #[id number] documented in this encounter Plan of Treatment Upcoming Encounters Date Type Department Care Team (Late st Contact Info) Description 07/09/2025 9:45 AM EDT Appointment [facility] US Imaging [address] [place] [address] 07/09/2025 11:30 AM EDT Office Visit Maternal- Medicine at [facility] [address] [place] [address] Sana Lima MD [address] [place] [address] documented as of this encounter Goals Goal [...] documented as of this encounter Care Teams Angle Shearer Relationship Specialty Start Date End Date Riddhi Plata MD PCP - General Family Medicine 12/09/23 documented as of this encounter
--- OUTSIDE RECORDS SUMMARY | 2025-06-10 20:34 | XMS_ITS | Encounter Summary ---
Author Organization [employer] [facility] tem Address [id number] [address] [place] [address] Care Team Providers Care Line Haul Owner Operator Name Role Phone Riddhi Plata MD Primary Care Provider [phone] Encounter Details Date Type Department Care Team ([facility] st Contact Info) Description 09/01/2020 Orders Only [facility] General Surgery [address] [facility] [place] [address] Aman Tang MD [address] [facility], [facility] [address] [place] [address] Social History Tobacco Use Types Packs/Day Years [...] Info) Description 07/09/2025 9:45 AM EDT Appointment [facility] US Imaging [address] [place] [phone] 07/09/2025 11:30 AM EDT Office Visit Maternal- Medicine at [facility] [address] [place] [phone] Sana Lima MD [address] [place] [address] documented as of this encounter Procedures Procedure Name Priority Date/Time Associated Diagnosis Comments SURGICAL PATHOLOGY Routine 09/01/2020 10:00 AM EST documented in this encounter Results * Surgical Pathology (09/01/2020 10:00 AM EST) Aman Tang MD PATHOLOGY/CYTOLOGY ORDERABLES Final Result [...] documented as of this encounter Care Teams Line Haul Owner Operator Relationship Specialty Start Date End Date Riddhi Plata MD PCP - General Family Medicine 12/09/23 documented as of this encounter
--- OUTSIDE RECORDS SUMMARY | 2025-06-10 20:34 | XMS_ITS | Encounter Summary ---
Author Organization [facility] Address [address] [facility] [place] [address] Care Team Providers Care Diver Helper Name Role Phone Riddhi Plata MD Primary Care Provider [phone] Encounter Details Date Type Department Care Team (Late st Contact Info) Description 05/12/2025 Abstract [facility] [address] [facility] [place] [address] Roseanne Jones MA Social History Tobacco Use Types Packs/Day Years [...] 8:30 AM EDT Routine [facility] [address] [facility] [place] [address] Winter English PA [address] [place], [place] [id number] documented as of this encounter Goals Goal [...] documented as of this encounter Care Teams Diver Helper Relationship Specialty Start Date End Date Riddhi Plata MD [address] [place] [address] PCP - General Family Medicine 01/16/23 documented as of this encounter
--- OUTSIDE RECORDS SUMMARY | 2025-06-10 20:34 | XMS_ITS | Encounter Summary ---
Author Organization [facility] Address [address] [place] [address] Care Team Providers Care Epic Ambulatory Analyst Name Role Phone Riddhi Plata MD Primary Care Provider [phone] Encounter Details Date Type Department Care Team (Late st Contact Info) Description 06/10/2025 Bamboo flowsheet [facility] [address] [facility] [place] [address] Nena Spicer, RONALD [address] [facility] [place] [address] Social History Tobacco Use Types Packs/Day Years [...] Info) Description 07/08/2025 8:30 AM EDT Routine [facility] [address] [facility] [place] [address] Winter English PA [address] [place] [address] documented as of this encounter Goals Goal Patient Goal Type Associated Problems Recent Progress Patient-Stated? Author Help patient manage antidepressant medication Care Plan Patient on antidepressant monitoring plan No Riddhi Palta MD Baseline PHQ-9 Care Plan Baseline PHQ-9 No Riddhi Plata MD documented as of this encounter Visit Diagnoses Not on filedocumented in this encounter Additional Health Concerns Active Problems Noted Date Diagnosed Date Patient on antidepressant monitoring plan 2023 Baseline PHQ-9 02/01/2024 documented as of this encounter Care Teams Epic Ambulatory Analyst Relationship Specialty Start Date End Date Riddhi Plata MD [address] [place] [address] PCP - General Family Medicine 01/16/23 documented as of this encounter
--- OUTSIDE RECORDS SUMMARY | 2025-06-10 20:34 | XMS_ITS | Encounter Summary ---
Author Organization [employer] tem Address [facility] [id number] [address] [place] [address] Care Team Providers Care Safety Grooving Machine Operator Name Role Phone Riddhi Plata MD Primary Care Provider [phone] Reason for Visit * Reason Comments Med Refill Encounter Details Date Type Department Care Team (Late st Contact Info) Description 09/11/2024 Refill [facility] General [facility]-B[facility]ric [address] [facility]. [address] [place] [address] Moriah Lira PAPamelaC [address] [facility] [address] [place] [address] Social History Tobacco Use Types Packs/Day Years Used Date Smoking Tobacco: Never Smokeless Tobacco: Never Alcohol Use Standard Drinks/Week Comments Not Currently 0 (1 standard drink = 0.6 oz pur e alcohol) social AHC Utilities Answer Date Recorded In the past 12 months has [employer], gas, oil, or water company threatened to [...] Info) Description 07/09/2025 9:45 AM EDT Appointment [facility] US Imaging [address] [place] [address] 07/09/2025 11:30 AM EDT Office Visit Maternal- Medicine at [facility] [address] [place] [address] Sana Lima MD [address] [place] [address] documented as of this encounter Goals Goal [...] documented as of this encounter Care Teams Safety Grooving Machine Operator Relationship Specialty Start Date End Date Riddhi Plata MD PCP - General Family Medicine 12/09/23 documented as of this encounter
--- OUTSIDE RECORDS SUMMARY | 2025-06-10 20:34 | XMS_ITS | Encounter Summary ---
Author Organization [facility] tem Address [facility] [id number] [address] [place] [address] Care Team Providers Care Fret Saw Operator Name Role Phone Riddhi Plata MD Primary Care Provider [phone] Encounter Details Date Type Department Care Team (Late st Contact Info) Description 05/28/2025 Abstract Maternal- Medicine at [facility] [address] [place] [address] Maisha Pratt MD [address] [facility] 1st [place] [address] Social History Tobacco Use Types Packs/Day Years Used Date Smoking Tobacco: Never Smokeless Tobacco: Never Alcohol Use Standard Drinks/Week Comments Not Currently 0 (1 standard drink = 0.6 oz pur e alcohol) social C Utilities Answer Date Recorded In the past 12 months has [employer], gas, oil, or water company threatened to [...] 07/09/2025 9:45 AM EDT Appointment [facility] - [facility] US Imaging [address] [place] [address] 07/09/2025 11:30 AM EDT Office Visit Maternal- Medicine at [facility] [address] [place] [address] Sana Lima MD [address] [place] [address] documented as of this encounter Goals Goal Patient Goal Type Associated Problems Recent Progress Patient-Stated? Author safe discharge to home General Yes Kate Blanton, RN Note: Evaluation of progress towards goal: safe transition from hospital to home with family support. documented as of this encounter Procedures Procedure Name Priority Date/Time Associated Diagnosis Comments HIV 1&2 AB/AG SCREEN (P24 AG) Routine 03/25/2025 HIV 1&2 AB/AG SCREEN (P24 AG) Routine 03/25/2025 RUBELLA IGG IMMUNE STATUS Routine 03/25/2025 SYPHILIS TOTAL(UNKNOWN SYPHILIS STATUS) Routine 03/25/2025 HEPATITIS C(HCV) ANTIBODY W/REFLEX TO PCR Routine 03/25/2025 DRUG SCREEN, URINE Routine 03/25/2025 HEPATITIS B SURFACE ANTIGEN Routine 03/25/2025 CBC (NO DIFF) Routine 03/25/2025 CBC AND DIFFERENTIAL Routine 03/25/2025 TYPE AND SCREEN Routine 03/25/2025 TYPE AND SCREEN Routine 03/25/2025 HEMOGLOBIN A1C Routine 03/25/2025 BASIC METABOLIC PANEL Routine 03/25/2025 documented in this encounter Results * Drug Screen, Urine (03/25/2025) Methadone negative MANUALLY TRANSCRIBED RESULTS Opiates negative [...] ORDERABLES Final Re sult Performing Organization Address [facility] Co de Phone Number MANUALLY TRANSCRIBED RESULTS * CBC without diff (03/25/2025) Hemoglobin 12.3 MANUALLY TRANSCRIBED RESULTS Hematocrit 36.5 MANUALLY TRANSCRIBED RESULTS Rbc Mcv (Fl) By Automated Count 87.1 MANUALLY TRANSCRIBED RESULTS Platelets 243 MANUALLY TRANSCRIBED RESULTS Blood Venous blood / Unknown us Not In System Ref Prov LAB BLOOD ORDERABLES Jumana l Result Performing Organization Address [facility] de Phone Number MANUALLY TRANSCRIBED RESULTS * Type and screen (03/25/2025) Antibody Screen negative MANUALLY TRANSCRIBED RESULTS Blood Venous blood / Unknown us Not In System Ref Prov BLOOD BANK TEST ORDERABLE S Final Result Performing Organization Address [facility] de Phone Number MANUALLY TRANSCRIBED RESULTS * Hemoglobin A1c (03/25/2025) Hemoglobin A1C 5.0 4.0 - 6.0 % MANUALLY TRANSCRIBED RESULTS Blood Venous blood / Unknown us Bin R Carmen DO LAB BLOOD ORDERABLES Final Resu lt Performing Organization Address [facility] Co de Phone Number MANUALLY TRANSCRIBED RESULTS * Basic Metabolic Panel (03/25/2025) Glucose 97 mg/dL MANUALLY TRANSCRIBED RESULTS Blood Venous blood / Unknown us Bin R Carmen DO LAB BLOOD ORDERABLES Final Resu lt Performing Organization Address [facility] de Phone Number MANUALLY TRANSCRIBED RESULTS * (ABNORMAL) CBC and differential (03/25/2025) Hemoglobin 12.3 12.0 - 16.0 g/dL MANUALLY TRANSCRIBED RESULTS Hematocrit 37 36 - 46 % MANUALLY TRANSCRIBED RESULTS Platelets 243 150 - 399 10*3/uL MANUALLY TRANSCRIBED RESULTS Auto WBC 12.4(A) 3.3 - 10.0 10*3/mL MANUALLY TRANSCRIBED RESULTS Blood us Bin R Carmen DO LAB BLOOD ORDERABLES Final Resu lt MANUALLY TRANSCRIBED RESULTS * Hepatitis C(HCV) Ab w/ Reflex to PCR (03/25/2025) Hepatitis C Antibody non reactive MANUALLY TRANSCRIBED RESULTS Blood Venous blood / Unknown us Not In System Ref Prov LAB BLOOD ORDERABLES Jumana l Result Performing Organization Address [facility] Co de Phone Number MANUALLY TRANSCRIBED RESULTS * HIV 1&2 AB/AG Screen (P24 AG) (03/25/2025) HIV 1&2 AB/AG non reactive MAN UALLY TRANSCRIBED RESULTS Blood Venous blood / Unknown us Not In System Ref Prov LAB BLOOD ORDERABLES Jumana l Result Performing Organization Address [facility] de Phone Number MANUALLY TRANSCRIBED RESULTS * Type and screen (03/25/2025) Antibody Screen negative MANUALLY TRANSCRIBED RESULTS Blood Venous blood / Unknown us Not In System Ref Prov BLOOD BANK TEST ORDERABLE S Final Result MANUALLY TRANSCRIBED RESULTS * Rubella IGG immune status (03/25/2025) Rubella immune IgG 1.59 MANUALLY TRANSCRIBED RESULTS Blood Venous blood / Unknown us Not In System Ref Prov LAB BLOOD ORDERABLES Jumana l Result MANUALLY TRANSCRIBED RESULTS * Hepatitis B surface antigen (03/25/2025) Hepatitis B Surface Antigen negative MANUALLY TRANSCRIBED RESULTS Blood Venous blood / Unknown us Not In System Ref Prov LAB BLOOD ORDERABLES Jumana l Result MANUALLY TRANSCRIBED RESULTS * HIV 1&2 AB/AG Screen (P24 AG) (03/25/2025) HIV 1&2 AB/AG non reactive MAN UALLY TRANSCRIBED RESULTS Blood Venous blood / Unknown us Not In System Ref Prov LAB BLOOD ORDERABLES Jumana l Result MANUALLY TRANSCRIBED RESULTS * Syphilis Total (Unknown Syphilis Status) (03/25/2025) Syphilis non reactive MANUALL Y TRANSCRIBED RESULTS Blood Venous blood / Unknown us Not In System Ref Prov LAB BLOOD ORDERABLES Jumana l Result MANUALLY TRANSCRIBED RESULTS documented in this encounter Visit Diagnoses Not on filedocumented in this encounter Additional Health Concerns Assessment Noted Time PHQ-9 Depression Total Score: 0 04/23/20 24 3:05 PM EDT documented as of this encounter Care Teams Fret Saw Operator Relationship Specialty Start Date End Date Riddhi Plata MD PCP - General Family Medicine 12/09/23 documented as of this encounter
--- OUTSIDE RECORDS SUMMARY | 2025-06-10 20:34 | XMS_ITS | Encounter Summary ---
Author Organization [facility] tem Address [facility] [id number] [address] [place] [address] Care Team Providers Care Boilermaker Industrial Boilers Name Role Phone Riddhi Plata MD Primary Care Provider [phone] Encounter Details Date Type Department Care Team (Late st Contact Info) Description 01/22/2024 External Surgery [facility] General Surgery-B[facility]ric [address] [facility] [address] [place] [address] Isa Jack CMA Social History Tobacco [...] Info) Description 07/09/2025 9:45 AM EDT Appointment [facility] US Imaging [address] [place] [address] 07/09/2025 11:30 AM EDT Office Visit Maternal- Medicine at [facility] [address] [place] [address] Sana Lmia MD [address] [place] [address] documented as of this encounter Goals Goal [...] documented as of this encounter Care Teams Boilermaker Industrial Boilers Relationship Specialty Start Date End Date Riddhi Plata MD PCP - General Family Medicine 12/09/23 documented as of this encounter
--- OUTSIDE RECORDS SUMMARY | 2025-06-10 20:34 | XMS_ITS | Encounter Summary ---
Author Organization [employer] tem Address [facility] [id number] [address] [place] [address] Care Team Providers Care Wireless Sales Representative Name Role Phone Riddhi Plata MD Primary Care Provider [phone] Reason for Visit * Reason Comments Med Refill Encounter Details Date Type Department Care Team (Late st Contact Info) Description 10/27/2024 Refill [facility] General Surgery-Bariatric [address] [facility]. [address] [place] [address] Moriah Lira PA-C [address] [facility] [address] [place] [address] Class 3 severe obesity due [...] Recorded In the past 12 months has [employer], gas, oil, or water [employer] threatened to shut off services in your [...] Info) Description 07/09/2025 9:45 AM EDT Appointment [facility] US Imaging [address] [place] [address] 07/09/2025 11:30 AM EDT Office Visit Maternal- Medicine at [facility] [address] [place] [address] Sana Lima MD [address] [place] [address] documented as of this encounter Goals Goal [...] (BMI) of 60.0 to 69.9 in adult ([facility]) History of pulmonary embolism Personal history of venous thrombosis and embolism Malnutrition following gastrointestinal surgery Other and unspecified postsurgical nonabsorption Postsurgical malabsorption H/O gastric bypass documented in this encounter Additional Health Concerns Assessment Noted Time PHQ-9 Depression Total Score: 0 04/23/20 24 3:05 PM EDT documented as of this encounter Care Teams Wireless Sales Representative Relationship Specialty Start Date End Date Riddhi Plata MD PCP - General Family Medicine 12/09/23 documented as of this encounter
--- OUTSIDE RECORDS SUMMARY | 2025-06-10 20:34 | XMS_ITS | Encounter Summary ---
Author Organization [employer] tem Address [facility] [id number] [address] [place] [address] Care Team Providers Care Loader Demolder Name Role Phone Riddhi Plata MD Primary Care Provider [phone] Encounter Details Date Type Department Care Team (Late st Contact Info) Description 07/19/2023 Telephone [facility] Pulmonary/Sleep Medicine [address] [address] Lyla Butt, LEANDRO Social History [...] Bariatric surgery and Dr Manzo needs clearance. Retail Custodial Associate spoke to nurse Page at Dr Manzo office. Informed of clearance noted on 07-06-23. Page stated surgery/billing person said they have come across issues with insurance companies not approving/denying bariatric surgery. Page agreed to send a clearance for to our office for Dr Vidal to sign to help with insurance. Retail Custodial Associate spoke to patient and informed on above. Patient agreeable documented in this encounter Plan of Treatment Upcoming Encounters Date Type Department Care Team (Late st Contact Info) Description 07/09/2025 9:45 AM EDT Appointment [facility] US Imaging [address] [place] [address] 07/09/2025 11:30 AM EDT Office Visit Maternal- Medicine at [facility] [address] [place] [address] Sana Lima MD [address] [place] [address] documented as of this encounter Goals Goal [...] documented as of this encounter Care Teams Loader Demolder Relationship Specialty Start Date End Date Riddhi Plata MD PCP - General Family Medicine 12/09/23 documented as of this encounter
--- OUTSIDE RECORDS SUMMARY | 2025-06-10 20:34 | XMS_ITS | Encounter Summary ---
Author Organization [facility] Address [address] [facility] [place] [address] Care Team Providers Care Director Dance Name Role Phone Riddhi Plata MD Primary Care Provider [phone] Encounter Details Date Type Department Care Team (Late Contact Info) Description 05/18/2023 Abstract [facility] Family Medicine [address] [place] [address] Riddhi Plata MD [address] [place], [place] [phone] Social History Tobacco Use Types Packs/Day Years [...] Description 07/08/2025 8:30 AM EDT Routine [facility] [address] [facility] [place] [phone] Winter English PA [address] [place] [address] documented as of this encounter Visit Diagnoses Not on filedocumented in this encounter Care Teams Director Dance Relationship Specialty Start Date End Date Riddhi Plata MD [address] [facility] [place] [address] PCP - General Family Medicine 01/16/23 documented as of this encounter
--- OUTSIDE RECORDS SUMMARY | 2025-06-10 20:34 | XMS_ITS | Encounter Summary ---
Author Organization [employer] tem Address [facility] [id number] [address] [place] [address] Care Team Providers Care Mothercraft Nurse Name Role Phone Riddhi Plata MD Primary Care Provider [phone] Reason for Visit * Reason Comments Med Refill Encounter Details Date Type Department Care Team (Late st Contact Info) Description 09/04/2024 Refill [facility] General Surgery-Bariatric [address] [facility] [place] [address] Moriah Lira PAPamelaC [address] [facility] [address] [place] [address] Social History Tobacco Use Types Packs/Day Years Used Date Smoking Tobacco: Never Smokeless Tobacco: Never Alcohol Use Standard Drinks/Week Comments Not Currently 0 (1 standard drink = 0.6 oz pur e alcohol) social AHC Utilities Answer Date Recorded In the past 12 months has [employer], gas, oil, or water company threatened to [...] Info) Description 07/09/2025 9:45 AM EDT Appointment [facility] US Imaging [address] [place] [address] 07/09/2025 11:30 AM EDT Office Visit Maternal- Medicine at [facility] [address] [place] [address] Sana Lima MD [address] [place] [address] documented as of this encounter Goals Goal [...] documented as of this encounter Care Teams Mothercraft Nurse Relationship Specialty Start Date End Date Riddhi Plata MD PCP - General Family Medicine 12/09/23 documented as of this encounter
--- OUTSIDE RECORDS SUMMARY | 2025-06-10 20:34 | XMS_ITS | Encounter Summary ---
Author Organization [employer] tem Address [facility] [place] [facility] [id number] [address] [place] [address] Care Team Providers Care Bookbinder Apprentice Name Role Phone Riddhi Plata MD Primary Care Provider [phone] Reason for Visit * Reason Comments Med Refill Encounter Details Date Type Department Care Team (Late st Contact Info) Description 10/19/2024 Refill [facility] General Surgery-Bariatric [address] [facility] [place] [address] Moriah Lira PAPamelaC [address] [facility] [address] [place] [address] Malnutrition following gastrointestinal surgery; Postsurgical malabsorption; H/O gastric bypass Social History Tobacco Use Types Packs/Day Years Used Date Smoking Tobacco: Never Smokeless Tobacco: Never Alcohol Use Standard Drinks/Week Comments Not Currently 0 (1 standard drink = 0.6 oz pur e alcohol) social AHC Utilities Answer Date Recorded In the past 12 months has [employer], gas, oil, or water [employer] threatened to shut off services in your [...] Info) Description 07/09/2025 9:45 AM EDT Appointment [facility] US Imaging [address] [place] [address] 07/09/2025 11:30 AM EDT Office Visit Maternal- Medicine at [facility] [address] [place] [address] Sana Lima MD [address] [place] [address] documented as of this encounter Goals Goal [...] documented as of this encounter Care Teams Bookbinder Apprentice Relationship Specialty Start Date End Date Riddhi Plata MD PCP - General Family Medicine 12/09/23 documented as of this encounter
--- OUTSIDE RECORDS SUMMARY | 2025-06-10 20:34 | XMS_ITS | Encounter Summary ---
Author Organization [employer] tem Address [facility] [id number] [address] [place] [address] Care Team Providers Care International Banker Name Role Phone Riddhi Plata MD Primary Care Provider [phone] Encounter Details Date Type Department Care Team (Late st Contact Info) Description 05/26/2022 Telephone [facility] [address] [place] [address] Diana Mccray Social History Tobacco Use [...] 07/09/2025 9:45 AM EDT Appointment [facility] US Imaging [address] [place] [address] 07/09/2025 11:30 AM EDT Office Visit Maternal- Medicine at [facility] [address] [facility] [place] [address] Sana Lima MD [address] [place] [address] documented as of this encounter Visit Diagnoses [...] documented as of this encounter Care Teams International Banker Relationship Specialty Start Date End Date Riddhi Plata MD PCP - General Family Medicine 12/09/23 documented as of this encounter
--- OUTSIDE RECORDS SUMMARY | 2025-06-10 20:34 | XMS_ITS | Encounter Summary ---
Author Organization [facility] Address [address] [facility] [place] [address] Care Team Providers Care Engineering Design Supervisor Name Role Phone Riddhi Plata MD Primary Care Provider [phone] Encounter Details Date Type Department Care Team ([facility] Contact Info) Description 05/09/2023 Abstract [facility] [address] [place] [address] [place] [phone] Winter English PA [address] [place] [address] Dr [place], [place] [address] Social History Tobacco Use Types Packs/Day Years [...] Encounters Date Type Department Care Team (Late Contact Info) Description 07/08/2025 8:30 AM EDT Routine [facility] T[facility] [address] [facility] [address] Winter English PA [address] [place] [address] Dr [place], [facility] documented as of this encounter Visit Diagnoses Not on filedocumented in this encounter Care Teams Engineering Design Supervisor Relationship Specialty Start Date End Date Riddhi Plata MD [address] [place] [address] PCP - General Family Medicine 01/16/23 documented as of this encounter
--- OUTSIDE RECORDS SUMMARY | 2025-06-10 20:34 | XMS_ITS ---
Author Organization [employer] (ClinicalSummary Clone) Address Unknown Care Team Providers Care Transmitter Tester Name Role Phone Unavailable Primary Care Physician Unavailab le Results * [UNITY] ANEUPLOIDY NIPT Performed by: [employer] Component Value Range Date Fraction 4.8% 04/07/2025 02 :56 am UT Rh(D) NIPT RhD DETECTED 04/07/2025 02:5 6 am UTC Sex Chromosome Aneuploidy NOT DETECTED 02:56 am UTC Monosomy X LOW RISK <1 in 10,000 2024 02:56 am UTC Trisomy 13 LOW RISK <1 in 10,000 2024 02:56 am UTC Trisomy 18 LOW RISK <1 in 10,000 2024 02:56 am UTC Trisomy 21 LOW RISK <1 in 10,000 2024 02:56 am UTC Sex FEMALE 04/07/2025 02:5 6 am UTC Gestation CENTENO 04/07/20 02:56 am UTC For detailed report, see PDF See PDF 04/07/2025 02:56 am UTC 04/07/2025 02:5 6 am UT Social History Observation Value Start Date End Date
--- OUTSIDE RECORDS SUMMARY | 2025-06-10 20:34 | XMS_ITS | Encounter Summary ---
Author Organization [facility] Address [address] [place] [address] Care Team Providers Care Rn Home Health Name Role Phone Riddhi Plata MD Primary Care Provider [phone] Reason for Visit * Reason Comments Med Refill Encounter Details Date Type Department Care Team (Late st Contact Info) Description 01/29/2023 Refill [facility] Family Medicine [address] [place] [address] Riddhi Plata MD [address] [place], [place] [phone] Gastroesophageal reflux disease without esophagitis (Primary Dx); [...] Miscellaneous Notes * Telephone Encounter - Yolanda Catsillo - 02/14/2023 11:18 AM EDT This message [...] 07/08/2025 8:30 AM EDT Routine [facility] [address] [address] Winter English PA [address] [facility] [place] [address] documented as of this encounter Visit Diagnoses Diagnosis Gastroesophageal reflux disease without esophagitis- Primary Esophageal reflux Anxiety Anxiety state, unspecified documented in this encounter Care Teams Rn Home Health Relationship Specialty Start Date End Date Riddhi Plata MD [address] [place] [address] PCP - General Family Medicine 01/16/23 documented as of this encounter
--- OUTSIDE RECORDS SUMMARY | 2025-06-10 20:34 | XMS_ITS | Encounter Summary ---
Author Organization [employer] [facility] tem Address [facility] [id number] [address] [place] [address] Care Team Providers Care Latin Professor Name Role Phone Riddhi Plata MD Primary Care Provider [phone] Encounter Details Date Type Department Care Team (Late st Contact Info) Description 09/14/2020 Orders Only [facility] General Surgery [address] [facility] [place] [address] Aman Tang MD [address] [facility], [facility] [address] [place] [address] Social History Tobacco Use Types Packs/Day Years [...] Info) Description 07/09/2025 9:45 AM EDT Appointment [facility] US Imaging [address] [place] [address] 07/09/2025 11:30 AM EDT Office Visit Maternal- Medicine at [facility] [address] [place] [address] Sana Lima MD [address] [place] [address] documented as of this encounter Procedures Procedure Name Priority Date/Time Associated Diagnosis Comments SURGICAL PATHOLOGY Routine 09/14/2020 4:02 PM EST documented in this encounter Results * Surgical Pathology (09/14/2020 4:02 PM EST) Aman Tang MD PATHOLOGY/CYTOLOGY ORDERABLES Final [...] documented as of this encounter Care Teams Latin Professor Relationship Specialty Start Date End Date Riddhi Plata MD PCP - General Family Medicine 12/09/23 documented as of this encounter
--- OUTSIDE RECORDS SUMMARY | 2025-06-10 20:35 | XMS_ITS | Encounter Summary ---
Author Organization [facility] Address [address] [facility] [place] [address] Care Team Providers Care Office Inspector Name Role Phone Riddhi Plata MD Primary Care Provider [phone] Encounter Details Date Type Department Care Team (Late Contact Info) Description 03/20/2025 Abstract [facility] [address] [place] [place] [address] Bin Morales DO [address] [facility] [address] Kenneth Varela, [facility]11 Social History Tobacco Use Types Packs/Day [...] EDT Routine [facility] [address] [place] [address] Winter English PA [address] [facility] [address] [place], [place] [id number] documented as of this encounter Goals Goal [...] documented as of this encounter Care Teams Office Inspector Relationship Specialty Start Date End Date Riddhi Plata MD [address] [place] [address] PCP - General Family Medicine 01/16/23 documented as of this encounter
--- OUTSIDE RECORDS SUMMARY | 2025-06-10 20:35 | XMS_ITS | Encounter Summary ---
[id number] [address] [place] [address] Care Team Providers Care Registered Public Health Nurse Name Role Phone Riddhi Plata MD Primary Care Provider [phone] Reason for Referral * Diagnostic Imaging (Routine) - Pending Review Specialty Diagnoses / Procedures Referred By Contac t Referred To Contact Maternal and Medicine Diagnoses 20 weeks gestation of Chronic hypertension affecting History of pre-eclampsia in prior , currently in second trimester History of gestational diabetes in prior , currently in second trimester History of prediabetes Bariatric surgery status complicating , second trimester Severe obesity due to excess calories affecting , antepartum ([facility]) History of maternal pulmonary embolus Obstructive sleep apnea History of gestational diabetes in prior , currently Depression affecting Anxiety disorder affecting , antepartum Procedures US MFM with or without consult Maisha Pratt MD [address] [facility] [address] [place] [address] Phone: tel: fax: Maternal- Medicine at [facility] [address] [place] [address] Phone: tel: fax: Referral ID Status Reason Start Date Expiration Date V isits Requested Visits Authorized [id number] Pending Review 05/29/2025 05/29/2026 1 1 Encounter Details Date Type Department Care Team (Late st Contact Info) Description 05/29/2025 Orders Only Maternal- Medicine at [facility] [address] [place] [address] Winter Gibbons LPN 20 weeks gestation of (Primary Dx); Chronic hypertension affecting ; History of pre-eclampsia in prior , currently in second trimester; History of gestational diabetes in prior , currently in second trimester; History of prediabetes; Bariatric surgery status complicating , second trimester; Severe obesity due to excess calories affecting , antepartum ([facility]); History of maternal pulmonary embolus; Obstructive sleep apnea; History of gestational diabetes in prior , currently ; Depression affecting ; Anxiety disorder affecting , antepartum Social History Tobacco Use Types Packs/Day Years Used Date Smoking Tobacco: Never Smokeless Tobacco: Never Alcohol Use Standard Drinks/Week Comments Not Currently 0 (1 standard drink = 0.6 oz pur e alcohol) social [facility] Utilities Answer Date Recorded In the past 12 months has [employer], gas, oil, or water [employer] threatened to shut off services in your [...] Info) Description 07/09/2025 9:45 AM EDT Appointment [facility] [address] [place] [id number] 07/09/2025 11:30 AM EDT Office Visit Maternal- Medicine at [facility] [address] [place] [phone] Sana Lima MD [address] [place] [address] Scheduled Orders Name Type Priority Associated Diagnoses Orde r Schedule US M with or without consult Imaging Routine 20 weeks gestation of Chronic hypertension affecting History of pre-eclampsia in prior , currently in second trimester History of gestational diabetes in prior , currently in second trimester History of prediabetes Bariatric surgery status complicating , second trimester Severe obesity due to excess calories affecting , antepartum ([facility]) History of maternal pulmonary embolus Obstructive sleep apnea History of gestational diabetes in prior , currently Depression affecting Anxiety disorder affecting , antepartum Expected: 05/29/2025, Expires: 05/29/2026 documented as of this encounter Goals Goal Patient Goal Type Associated Problems Recent Progress Patient-Stated? Author safe discharge to home General Yes Kate Blanton, RN Note: Evaluation of progress towards goal: safe transition from hospital to home with family support. documented as of this encounter Visit Diagnoses Diagnosis 20 weeks gestation of - Primary Chronic hypertension affecting History of pre-eclampsia in prior , currently in second trimester History of gestational diabetes in prior , currently in second trimester History of prediabetes Bariatric surgery status complicating , second trimester Severe obesity due to excess calories affecting , antepartum ([facility]) History of maternal pulmonary embolus Personal history of venous thrombosis and embolism Obstructive sleep apnea Obstructive sleep apnea (adult) (pediatric) History of gestational diabetes in prior , currently with other poor obstetric history Depression affecting Anxiety disorder affecting , antepartum documented in this encounter Additional Health Concerns Assessment Noted Time PHQ-9 Depression Total Score: 0 04/23/20 3:05 PM EDT documented as of this encounter Care Teams Registered Public Health Nurse Relationship Specialty Start Date End Date Riddhi Plata MD PCP - General Family Medicine 12/09/23 documented as of this encounter
--- OUTSIDE RECORDS SUMMARY | 2025-06-10 20:35 | XMS_ITS | Encounter Summary ---
Author Organization [facility] Address [address] [facility] [place] [address] Care Team Providers Care Polishing Machine Operator Helper Name Role Phone Riddhi Plata MD Primary Care Provider [phone] Encounter Details Date Type Department Care Team (Late Contact Info) Description 03/20/2025 Abstract [facility] [address] [place] [address] Bin Morales DO [address] [facility] [facility] [address] [facility] [address] Kenneth Varela, [facility]11 Social History Tobacco Use Types Packs/Day [...] EDT Routine [facility] TAYLOR [address] [place] [address] Winter English PA [address] [facility] [address] [place], [place] [id number] documented as of this encounter Goals Goal [...] documented as of this encounter Care Teams Polishing Machine Operator Helper Relationship Specialty Start Date End Date Riddhi Plata MD [address] [place] [address] PCP - General Family Medicine 01/16/23 documented as of this encounter
--- OUTSIDE RECORDS SUMMARY | 2025-06-10 20:35 | XMS_ITS | Clinical Summary ---
Author Organization [facility] Healthcare Address [address] [place] [address] Care Team Providers Care Director Dermatology Name Role Phone Riddhi Plata MD Primary Care Provider [phone] Allergies Active Allergy Reactions Criticality Noted Date Comments Sumatriptan Unknown,Anaphylaxis High 11/28/2018 IMITREX FOR MIGRAINES Medications albuterol HFA 90 mcg/act inhalerIndicatio ns:Moderate persistent asthma without complication ([facility]) Inhale 2 puffs every 4 (four) hours if needed for shortness of breath 18 g 3 02/01/20 24 Active citalopram (CeleXA) 20 MG tabletIndication s:Anxiety Take 1 tablet (20 mg) by mouth in the morning. 100 tablet 3 02/01/20 24 Active omeprazole (PriLOSEC) [address] capsuleIndicatio ns:Gastroesophag eal reflux disease without esophagitis TAKE 1 CAPSULE BY MOUTH DAILY 30 MINUTES BEFORE MORNING MEAL 100 capsule 3 02/01/20 24 Active cyanocobalamin (Vitamin B-12) 1000 MCG/ML injection 07/14/20 24 Active Vit-Fe Fumarate-FA ( Vitamins) 28-0.8 MG tabletIndication s:, unspecified gestational age ([facility]),Encoun ter for supervision of normal first in first trimester ([facility]) Take 1 tablet by mouth Daily 30 tablet 6 03/20/20 25 026 Active labetalol (Normodyne) 200 MG tabletIndication s:Pre-existing essential hypertension during , antepartum ([facility]),Primar y hypertension,His tory of pulmonary embolism Take 1 tablet (200 mg) by mouth in the morning and 1 tablet (200 mg) in the evening and 1 tablet (200 mg) before bedtime. 90 tablet 1 05/04/20 25 Active busPIRone (Buspar) 15 MG tabletIndication s:Anxiety TAKE 1 TABLET BY MOUTH 2 TIMES A DAY (MORNING AND BEFORE BEDTIME) 180 tablet 11 05/25/20 25 Active busPIRone (Buspar) 15 MG tabletIndication s:Anxiety Take 1 tablet (15 mg) by mouth in the morning and 1 tablet (15 mg) before bedtime. 200 tablet 3 02/01/20 24 025 Discontinued Active Problems Problem Noted Date Diagnosed Date H/O gastric bypass 04/20/2025 Amnesia 05/17/2023 Disorder of endocrine system 05/17/2023 [...] of diabetes during 11/09 Preeclampsia in period ([facility]) 11/08 Overview (05/17/2023): 11/29/21: Discharged home with Labetalol 600 QID and Procardia 90 XL qd. Pt has appt with Dr. Morales in [place] 11/30/21 for her PP appt. Pt has BP cuff at home already and would like to f/u with [facility] [employer] 12/09/21: Decreased to Labetalol 600 TID 12/26/21: Decreased to Procardia 90 XL qd. Iron deficiency anemia 12/29/2019 Gastroesophageal reflux disease 12/15/2019 Seasonal allergic rhinitis due to pollen 020 Anxiety 07/07/2019 Anemia 06/26/2019 Depression 06/13/2019 Overview (05/17/2023): Started on Celexa Gestational diabetes mellitus (GDM) ([facility]) Asthma 12/09/2018 Estimated Date of Delivery Comme nts Yes 10/16/2025 Based on last me nstrual period of 01/09/2025 Encounters Date Type Department Care Team Description 06/10/2025 8:50 [place] [address] Nena Spicer NP 21 weeks gestation of ([facility]); Well woman exam; Second trimester ([facility]); Screen for STD (sexually transmitted disease); Well woman exam with routine gynecological exam; Diabetes mellitus screening; Iron deficiency anemia, unspecified iron deficiency anemia type 06/10/2025 Bamboo flowsheet [facility] [place] [address] [place] [address] Nena Spicer NP 06/02/20[place] [address] Gonzalez Morales, 06/01/2025 External [place] [address] Gonzalez Morales, 05/25/2025 Refill [facility] [address] [place] [address] Riddhi Plata MD Anxiety 05/14/2025 8:30 AM EDT Routine [facility] [place] [facility] [address] [place] [address] Nena Spicer NP Well woman exam with routine gynecological exam; Screening, , for anatomic survey ([facility]); Second trimester ([facility]); 17 weeks gestation of ([facility]); Vaginal discharge; STD exposure 05/12/2025 Abstract [facility] [place] [facility] [address] [place] [address] Roseanne Jones MA 05/04/2025 Telephone [facility] [place] [facility] [address] [place] [address] Maryana Orozco LPN 04/30/2025 Telephone [facility] [place] [facility] [address] [place] [address] [place] [address] Marav Cooney MA 04/27/2025 Telephone [facility] [place] [facility] [address] [place] [address] [place] [address] Marva Cooney MS 04/20/2025 9:10 AM EDT [facility]ine [facility] [place] [place] [address] Gonzalez Morales DO Second trimester ([facility]); 14 weeks gestation of ([facility]); Primary hypertension ; H/O gastric bypass; History of diet controlled gestational diabetes mellitus (GDM); Diabetes mellitus screening 04/20/2025 Bamboo flowsheet [facility] [place] [facility] [address] [place] [address] Gonzalez Morales DO 03/25/2025 Clinisync Result Encounter [facility] External Department Unsolicited Provider, Generic External Data 03/20/2025 9:00 AM EDT Initial [facility] [place] [address] GA: 10w0d 03/20/2025 8:30 AM EDT Ancillary Procedure [facility] [place] [phone] Missed menses 03/20/20[place] [phone] Gonzalez Morales DO 03/20/2025 Abstract [facility] [place] [place] [address] Gonzalez Morales, from Last 3 Months Immunizations Immunization Administration [...] Pressure 122/72 06/10/2025 9:13 AM EDT Pulse 91 10/10/2024 3:32 PM EST Temperature - - Respiratory Rate 18 10/10/2024 3:32 PM EST Oxygen Saturation 97% 10/10/2024 3:32 PM EST Inhaled Oxygen Concentration - - Weight 105 kg (231 lb) 06/10/2025 9:13 AM EDT Height 154.9 cm (5' 1 ) 10/10/2024 3:32 PM EST Body Mass Index 43.65 10/10/2024 3:32 PM EST Plan of Treatment Upcoming Encounters Date Type Department Care Team (Late st Contact Info) Description 07/08/2025 8:30 AM EDT Routine [facility] [place] [facility] [address] [place] [address] Winter English PA [address] [place] [address] Health Maintenance Due Date Last Done Comments [...] 9:14 AM EDT 21 weeks gestation of ([facility]) US OB 14+ WEEKS ANATOMY SCAN 06/01/2025 5:47 PM EDT POCT URINALYSIS DIPSTICK Routine 05/14/2025 9:32 AM EDT Second trimester ([facility]) 17 weeks gestation of ([facility]) POCT URINALYSIS DIPSTICK Routine 04/20/2025 9:22 AM EDT Second trimester ([facility]) HBSAG SCREEN Routine 03/25/2025 8:22 AM EDT RAPID PLASMA REAGIN, QUANT Routine 03/25/2025 8:22 AM EDT HIV AB/P24 AG WITH REFLEX Routine 03/25/2025 8:22 AM EDT HCV ANTIBODY RFX TO QUANT PCR Routine 03/25/2025 8:22 AM EDT ALL RUBELLA IGG AB Routine 03/25/2025 8: 22 AM EDT ALL TYPE AND SCREEN Routine 03/25/2025 8 :22 AM EDT MLR HEMOGLOBIN A1C Routine 03/25/2025 8: 22 AM EDT ALL CBC WITH AUTO DIFF Routine 03/25/2025 8:22 AM EDT BOX TEST Routine 03/25/2025 8:22 AM EDT URINE CULTURE, ROUTINE Routine 03/25/2025 7:56 AM EDT TBH DRUG SCREEN RAPID (URINE) Routine 03/25/2025 7:56 AM EDT POCT URINALYSIS DIPSTICK Routine 03/20/2025 9:06 AM [...] Recently Relevant to Health Maintenance Results * (ABNORMAL) POCT urinalysis dipstick manually resulted (06/10/2025 9:14 AM EDT) Only the most recent of4 resultswithin the time period is included. Color, UA Yellow Clarity, UA Clear Glucose, [...] - Positive Urine 06/10/2025 9:14 AM EDT us Nena Spicer NP POINT OF CARE TEST ENTER/EDIT ORDERABLES Final Result * US OB 14+ weeks anatomy scan (06/01/2025 5:47 PM EDT) Anatomical Region Laterality Modality Body Ultrasound 06/01/2025 5:47 PM EDT Narrative 06/01/2025 5:47 PM EDT THIS EXAM WAS PERFORMED AT [facility] NAME: TARA PERKINS : 1995 SEX: F Accession Number: [id number] ORDERING PHYSICIAN: ESTER PRATT REFERRING PHYSICIAN: GONZALEZ MORALES Coding ----- --------- Procedures [id number]: Ultrasound, uterus, real time with image documentation, and maternal evaluation plus detailed anatomic examination, transabdominal approach;single or first gestation [id number]: Ultrasound, uterus, real time with image documentation, [...] EFW (oz) 11 oz EFW by: Hadlock ([id number]) Extended Tibia 24.7 mm 18w 5d 17% Natalya Food Service Manager 5.8 mm CM 4.6 mm 37% Nicolaides [...] Heart/Thorax: RVOT view. LVOT view. 3-vessel view. 0-lsippq-xfbxuul view. Situs. Aortic arch view. Bicaval view. [...] insertion noted. Recommendations ----- --------- Please see [facility] documentation from today. The patient is scheduled in four to six week(s) to complete anatomic survey. Subsequent follow up or other follow up as clinically determined by primary OB provider unless otherwise specified by [facility]. Results forwarded to ordering provider so they can follow up with the patient as necessary. The copy-to physician of this order is GONZALEZ Jenkins The ordering physician of this order is ESTER Lopez Procedure Note Radiology, Radiologist, - 06/01/2025 THIS EXAM WAS PERFORMED AT [facility] NAME: TARA PERKINS : 1995 SEX: F Accession Number: [id number] ORDERING PHYSICIAN: ESTER PRATT REFERRING PHYSICIAN: GONZALEZ MORALES Coding ----- --------- Procedures [id number]: Ultrasound, uterus, real time with imagedocumentation, and maternal evaluation plus detailed anatomic examination, transabdominalapproach;single or first gestation [id number]: Ultrasound, uterus, real time with imagedocumentation, transvaginal [...] lb. Initial kg, 239 lb. BMI 46.68 kg/m???. Initial [...] EFW (oz) 11 oz EFW by: Hadlock ([id number]) Extended Tibia 24.7 mm 18w 5d 17% Natalya Food Service Manager 5.8 mm CM 4.6 mm 37% Nicolaides [...] Heart/Thorax: RVOT view. LVOT view. 3-vessel view. 6-avgmod-qbfixwh view.Situs. Aortic arch view. Bicaval view. Ductal [...] is ESTER Lopez us Gonzalez Morales DO IMG OB US PROCEDURES Final Resul t * BOX TEST (03/25/2025 8:22 AM EDT) BOX TEST SENT OUT [facility] BOX1 [facility] BOX2 03/25/25 [facility] 03/25/2025 8:22 AM EDT 03/25/2025 8:27 AM EDT Narrative CLINISY[facility] - 03/25/2025 8:42 AM EDT us Gonzalez Morales DO LAB BLOOD ORDERABLES Final Resul t Performing Organization Address City/[facility] Co de Phone Number [facility] * HBSAG SCREEN (03/25/2025 8:22 AM EDT) HBSAG SCREEN Negative Negative [facility] Comment: Performed at: [address] [id number] Director Of Construction: Sedrick Snider PhD, Phone: [phone] 03/25/2025 8:22 AM EDT 03/25/2025 8:27 AM EDT Narrative CLINISYNC - 03/26/2025 12:08 PM EDT us Generic External Data Provider LAB BLOOD ORDERAB LES Final Result Performing Organization Address City/[facility]/ZIP Co de Phone Number [facility] * RAPID PLASMA REAGIN, QUANT (03/25/2025 8:22 AM EDT) Pathologist [facility] RAPID PLASMA REAGIN, QUANT Non Reactive NonRea<1: 1 titer [facility] Comment: Please Note: This test does not meet current guidelines for screening and diagnosis of syphilis. This test is intended for following treatment response in patients being treated for syphilis infection. To screen for syphilis infection, a reflex cascade that includes both RPR and a treponema-specific assay should be utilized, such as Treponema pallidum (Syphilis) Screening [place] (423656) or Rapid Plasma Reagin (RPR) Test With Reflex to Quantitative RPR and Confirmatory Treponema pallidum Antibodies ([id number]). Performed at: [address] [id number] Director Of Construction: Sedrick Snider PhD, Phone: [phone] 03/25/2025 8:22 AM EDT 03/25/2025 8:27 AM EDT Narrative CLINISYWA - 03/26/2025 12:08 PM EDT Generic External Data Provider LAB BLOOD ORDERAB LES Final Result Performing Organization Address [facility]/ZIP Co de Phone Number [facility] * HIV AB/P24 AG WITH REFLEX (03/25/2025 8:22 AM EDT) [facility] HIV AB/P24 AG SCREEN Non Reactive Non Reactive [facility] Comment: HIV-1/HIV-2 antibodies and HIV-1 p24 antigen were NOT detected. There is no laboratory evidence of HIV infection. HIV Negative Performed at: [address] [id number] Director Of Construction: Sedrick Snider PhD, Phone: [phone] 03/25/2025 8:22 AM EDT 03/25/2025 8:27 AM EDT Narrative CLINISYNC - 03/26/2025 5:10 AM EDT Generic External Data Provider LAB BLOOD ORDERAB LES Final Result Performing Organization Address [facility]/ZIP Co de Phone Number [facility] * HCV ANTIBODY RFX TO QUANT PCR (03/25/2025 8:22 AM EDT) [facility] HCV AB Non Reactive Non Reactive [facility] INTERPRETATION: Comment . [facility] Comment: Not infected with HCV unless early or acute infection is suspected (which may be delayed in an immunocompromised individual), or other evidence exists to indicate HCV infection. 03/25/2025 8:22 AM EDT 03/25/2025 8:27 AM EDT Narrative CLINISYNC - 03/26/2025 5:10 AM EDT Generic External Data Provider LAB BLOOD ORDERAB LES Final Result Performing Organization Address [facility]/State/ZIP Co de Phone Number [facility] * MLR HEMOGLOBIN A1C (03/25/2025 8:22 AM EDT) [facility] GLYCOHEMOGLOBIN A1C 5.0 4.5 - 6.2 % [facility] Comment: ADA RECOMMENDED LIMIT 4.0 - 6.0 ADA THERAPEUTIC TARGET < 7.0 ACTION SUGGESTED > 7.0 ESTIMATED AVERAGE GLUCOSE 97 mg/dL [facility] 03/25/2025 8:22 AM EDT 03/25/2025 8:27 AM EDT Narrative CLINISYNC - 03/25/2025 8:55 AM EDT Gonzalez Morales DO CLINISYNC Final Result Performing Organization Address [facility] Co de Phone Number [facility] * ALL TYPE AND SCREEN (03/25/2025 8:22 AM EDT) [facility] BLOOD TYPE B Positive [facility] ANTIBODY SCREEN NEGATIVE TB 03/25/2025 8:22 AM EDT 03/25/2025 8:27 AM EDT Narrative CLINISYNC - 03/25/2025 9:51 AM EDT [facility] , Generic External Data Provider CLINISYNC F inal Result Performing Organization Address [facility] Co de Phone [facility] * ALL RUBELLA IGG AB (03/25/2025 8:22 AM EDT) [facility] RUBELLA ANTIBODIES, IGG 1.59 Immune >0.99 index [facility] Comment: Non-immune <0.90 Equivocal 0.90 - 0.99 Immune >0.99 Performed at: [facility] [address] [id number] Director Of Construction: Sedrick Snider PhD, Phone: [phone] 03/25/2025 8:22 AM EDT 03/25/2025 8:27 AM EDT Narrative CLINISYNC - 03/26/2025 5:10 AM EDT us Generic External Data Provider CLINISYNC F inal Result [facility] * (ABNORMAL) ALL CBC WITH AUTO DIFF (03/25/2025 8:22 AM EDT) [facility] TB WBC 12.4(H) 4.0 - 11.0 10 3/uL TBH TBH RBC 4.19(L) 4.20 - 5.40 10 6/uL TBH TBH HGB 12.3 12.0 - 16.0 g/dL TB TB HCT 36.5 36.0 - 48.0 % TBH TB MCV 87.1 81.0 - 99.0 fL TB TB MCH 29.4 26.7 - 34.0 pg TBH TBH MCHC 33.7 29.9 - 35.2 g/dL TB TB RDW 13.7 11.0 - 15.0 % TBH TB PLT 243 150 - 450 10 3/uL TBH TB MPV 10.5 9.5 - 13.5 fL TBH NEUTROPHILS PERCENT AUTO 70.1 43.0 - 75.0 % TBH LYMPHOCYTES PERCENT AUTO 24.3 20.5 - 60.0 % TBH MONOCYTES PERCENT AUTO 4.4 1.7 - 12.0 % TBH TBH EO % 0.6(L) 0.9 - 7.0 % TBH BASOPHILS PERCENT AUTO 0.3 0.2 - 2.0 % TB[facility] IMMATURE GRANULOCYTES PCT AUTO 0.3 0.0 - 0.5 % TBH NEUTROPHILS ABSOLUTE AUTO 8.7(H) 1.4 - 6.5 10 3/uL TBH LYMPHOCYTES ABSOLUTE AUTO 3.0 1.2 - 3.8 10 3/uL TBH MONOCYTES ABSOLUTE AUTO 0.6 0.3 - 0.8 10 3/uL TBH TBH EO # 0.1 0.0 - 0.7 10 3/uL TBH BASOPHILS ABSOLUTE AUTO 0.0 0.0 - 0.1 10 3/uL TBH IMMATURE GRANULOCYTES ABS AUTO 0.04(H) 0.00 - 0.03 10 3/uL [facility] 03/25/2025 8:22 AM EDT 03/25/2025 8:27 AM EDT Narrative CLINISYNC - 03/25/2025 8:46 AM EDT us Gonzalez Morales DO CLINISYNC Final Result Performing Organization Address City/[facility]/ZIP Co de Phone Number [facility] * URINE CULTURE, ROUTINE (03/25/2025 7:56 AM EDT) URINE CULTURE, ROUTINE Urine Culture, Routine [facility] URINE CULTURE, ROUTINE Mixed urogenital asim [facility] URINE CULTURE, ROUTINE 10,000-25,000 colony forming units per mL [facility] URINE CULTURE, ROUTINE [facility]formed at: [facility]INE C[facility], ROUTINE [address] [place] [id number] [facility] URINE CULTURE, ROUTINE Director Of Construction: Sedrick Snider PhD, Phone: [phone] [facility] 03/25/2025 7:56 AM EDT 03/25/2025 8:27 AM EDT Narrative CLINISYNC - 03/26/2025 9:10 PM EDT us Generic External Data Provider LAB BLOOD ORDERAB LES Final Result [facility] * TB DRUG SCREEN RAPID (URINE) (03/25/2025 7:56 AM EDT) CANNABINOID SCREEN URINE NEGATIVE NEGATIVE TBH PHENCYCLIDINE SCREEN URINE NEGATIVE NEGATIVE TBH COCAINE SCREEN URINE NEGATIVE NEGATIVE TBH METHAMPHETAMINES SCREEN URINE NEGATIVE NEGATIVE TBH OPIATE SCREEN URINE NEGATIVE NEGATIVE TBH AMPHETAMINE SCREEN URINE NEGATIVE NEGATIVE TBH BENZODIAZEPINES SCREEN URINE NEGATIVE NEGATIVE TBH TRICYCLIC ANTIDEPRESSANT URINE NEGATIVE NEGATIVE TBH METHADONE SCREEN URINE NEGATIVE NEGATIVE TBH BARBITURATES SCREEN URINE NEGATIVE NEGATIVE TBH OXYCODONE SCREEN URINE NEGATIVE NEGATIVE TBH BUPRENORPHINE SCREEN URINE NEGATIVE NEGATIVE TBH Comment: DRUG CLASS TEST SYSTEM CUT-OFF CONCENTRATIONS ARE FOLLOWS: AMP (Amphetamine): 500 ng/mL BAR (Barbiturates): 200 ng/mL BZO (Benzodiazepines): 150 ng/mL BUP (Buprenorphine): 10 ng/mL PATI (Cocaine): 150 ng/mL mAMP (Methamphetamine): 500 ng/mL MTD (Methadone): 200 ng/mL OPI (Opiates): 100 ng/mL OXY (Oxycodone): 100 ng/mL PCP (Phencyclidine): 25 ng/mL THC (Cannabinoids): 50 ng/mL TCA (Trycyclic Antidepressants): 300 ng/mL 03/25/2025 7:56 AM EDT 03/25/2025 8:27 AM EDT Narrative CLINISYNC - 03/25/2025 8:54 AM EDT us Gonzalez Carmen DO CLINISYNC Final Result [facility] * POCT , urine manually resulted (03/20/2025 9:06 AM EDT) Preg Test, Ur Positive Negative Urine 03/20/2025 9:06 AM EDT us Gonzalez Carmen DO POINT OF CARE TEST ENTER/EDIT [...] ELECTRONICALLY SIGNED BY: Aman Amado MD us Gonzalez Morales DO IMG OB US PROCEDURES Final Resul t * THINPREP PAP AND HPV MRNA E6/E7 W/RFL HPV 16,18/45 (06/07/2023 4:13 PM EDT) us Winter [facility] LAB BLOOD ORDERABLES Final Resul t EXTERNAL LAB from Last 3 Months or Most Recently Relevant to Health Maintenance Additional Health Concerns Active Problems Noted Date Diagnosed Date Patient on antidepressant monitoring plan 2023 Baseline PHQ-9 02/01/2024 [place] [address] Care Teams Director Dermatology Relationship Specialty Start Date End Date Riddhi Plata MD [address] [place] [address] PCP - General Family Medicine 01/16/23
--- OUTSIDE RECORDS SUMMARY | 2025-06-10 20:35 | XMS_ITS | Encounter Summary ---
Author Organization [facility] tem Address [id number] [address] [place] [address] Care Team Providers Care Construction Helper Name Role Phone Riddhi Plata MD Primary Care Provider [phone] Encounter Details Date Type Department Care Team (Late st Contact Info) Description 06/08/2025 Orders Only Maternal- Medicine at [facility] [address] [place] [phone] Maisha Pratt MD [address] [facility] 1[address] [place] [address] History of Arlene-en-Y gastric bypass; Postsurgical malabsorption; Malnutrition following gastrointestinal surgery; Folate deficiency; Iron deficiency Social History Tobacco Use Types Packs/Day Years Used Date Smoking Tobacco: Never Smokeless Tobacco: Never Alcohol Use Standard Drinks/Week Comments Not Currently 0 (1 standard drink = 0.6 oz pur e alcohol) social [facility] Utilities Answer Date Recorded In the past 12 months has [employer], gas, oil, or water [employer] threatened to shut off services in your [...] 07/09/2025 9:45 AM EDT Appointment [facility] US Imaging [address] [place] [phone] 07/09/2025 11:30 AM EDT Office Visit Maternal- Medicine at [facility] [address] [place] [phone] Sana Lima MD [address] [place] [address] documented as of this encounter Goals Goal [...] gastrointestinal surgery Other and unspecified postsurgical nonabsorption Folate deficiency Other B-complex deficiencies Iron deficiency Disorders of iron metabolism documented in this encounter Additional Health Concerns Assessment Noted Time PHQ-9 Depression Total Score: 0 04/23/20 24 3:05 PM EDT documented as of this encounter Care Teams Construction Helper Relationship Specialty Start Date End Date Riddhi Plata MD PCP - General Family Medicine 12/09/23 documented as of this encounter
--- OUTSIDE RECORDS SUMMARY | 2025-06-10 20:35 | XMS_ITS | Encounter Summary ---
Author Organization [employer] tem Address [id number] [address] [place] [address] Care Team Providers Care Motion Picture Equipment Machinist Name Role Phone Riddhi Plata MD Primary Care Provider [phone] Encounter Details Date Type Department Care Team (Latest Contact Info) Description 05/29/2025 Travel Social History Tobacco Use Types Packs/Day Years Used Date Smoking Tobacco: Never Smokeless Tobacco: Never Alcohol Use Standard Drinks/Week Comments Not Currently 0 (1 standard drink = 0.6 oz pur e alcohol) social [facility] Utilities Answer Date Recorded In the past 12 months has [employer], gas, oil, or water company threatened to [...] Info) Description 07/09/2025 9:45 AM EDT Appointment [facility] US Imaging [address] [place] [phone] 07/09/2025 11:30 AM EDT Office Visit Maternal- Medicine at [facility] [address] [place] [phone] Sana Lima MD [address] [place] [address] documented as of this encounter Goals Goal [...] documented as of this encounter Care Teams Motion Picture Equipment Machinist Relationship Specialty Start Date End Date Riddhi Plata MD PCP - General Family Medicine 12/09/23 documented as of this encounter
--- OUTSIDE RECORDS SUMMARY | 2025-06-10 20:35 | XMS_ITS | Encounter Summary ---
Author Organization [facility] [employer] [facility] tem Address [id number] [address] [place] [address] Care Team Providers Care Upholstery Restorer Name Role Phone Riddhi Plata MD Primary Care Provider [phone] Encounter Details Date Type Department Care Team (Late st Contact Info) Description 05/28/2025 Orders Only Maternal- Medicine at [facility] [address] [place] [address] Ref Prov, [place] [address] Social History Tobacco Use Types Packs/Day Years Used Date Smoking Tobacco: Never Smokeless Tobacco: Never Alcohol Use Standard Drinks/Week Comments Not Currently 0 (1 standard drink = 0.6 oz pur e alcohol) social [employer] Utilities Answer Date Recorded In the past 12 months has [employer], gas, oil, or water [employer] threatened to shut off services in your [...] Description 07/09/2025 9:45 AM EDT Appointment [facility] [address] [place] [phone] 07/09/2025 11:30 AM EDT Office Visit Maternal- Medicine at [facility] [address] [facility] [place] [phone] Sana Lima MD [address] [place], [place] [id number] documented as of this encounter Goals Goal Patient Goal Type Associated Problems Recent Progress Patient-Stated? Author safe discharge to home General Yes Kate Blanton, RN Note: Evaluation of progress towards goal: safe transition from hospital to home with family support. documented as of this encounter Procedures Procedure Name Priority Date/Time Associated Diagnosis Comments US PREG LMTD 1 OR MORE FETUS Routine 05/28/2025 11:41 AM EDT UNLISTED LAB TEST Routine 05/28/2025 11:15 AM EDT documented in this encounter Results * Ultrasound limited 1 or more fetus (05/28/2025 11:41 AM EDT) Anatomical Region Laterality Modality OB-CHEMIST ORGANIC Ultrasound us Not In System Ref Prov [...] documented as of this encounter Care Teams Upholstery Restorer Relationship Specialty Start Date End Date Riddhi Plata MD PCP - General Family Medicine 12/09/23 documented as of this encounter
--- OUTSIDE RECORDS SUMMARY | 2025-06-10 20:35 | XMS_ITS | Encounter Summary ---
Author Organization [facility] [employer] [facility] tem Address [id number] [address] [place] [address] Care Team Providers Care Real Estate Specialist Name Role Phone Riddhi Plata MD Primary Care Provider [phone] Encounter Details Date Type Department Care Team (Latest Contact Info) Description 06/01/2025 Results Follow-Up Maternal- Medicine at [facility] [address] [place] [phone] Maisha Pratt MD [address] [facility] 1[address] [place] [address] B-type natriuretic peptide, CBC without diff, Comprehensive metabolic panel, Additional followed-up results: 10 Social History Tobacco Use Types Packs/Day Years Used Date Smoking Tobacco: Never Smokeless Tobacco: Never Alcohol Use Standard Drinks/Week Comments Not Currently 0 (1 standard drink = 0.6 oz pur e alcohol) social [facility] Utilities Answer Date Recorded In the past 12 months has [employer], gas, oil, or water [employer] threatened to shut off services in your [...] Info) Description 07/09/2025 9:45 AM EDT Appointment [facility] Imaging [address] [place] [phone] 07/09/2025 11:30 AM EDT Office Visit Maternal- Medicine at [facility] [address] [place] [phone] Sana Lima MD [address] [place] [address] documented as of this encounter Goals Goal Patient Goal Type Associated Problems Recent Progress Patient-Stated? Author safe discharge to home General Yes Kate Blanton, RN Note: Evaluation of progress towards goal: safe transition from hospital to home with family support. documented as of this encounter Visit Diagnoses Diagnosis Vitamin D deficiency- Primary documented in this encounter Additional Health Concerns Assessment Noted Time PHQ-9 Depression Total Score: 0 04/23/20 24 3:05 PM EDT documented as of this encounter Care Teams Real Estate Specialist Relationship Specialty Start Date End Date Riddhi Plata MD PCP - General Family Medicine 12/09/23 documented as of this encounter
[2025-06-17 15:09] LABS: Age Gdln ACOG Testing Note (.); IGP, Aptima HPV, rfx 16/18,45 Note (.)
== END 2025-06-10 20:31 | disposition home or self-care (01) ==
LOC: LAB 20:30
PROVIDERS: PCP Family Medicine; Visit Provider Nurse Practitioner Family
DX: Z01.419 Encounter for gynecological examination (general) (routine) without abnormal findings (principal)
CPT/HCPCS: 87624; 88175

== ENCOUNTER 2025-07-01 08:53 | Outpatient (OUT) | payer OTHER, SELFPAY ==
--- OUTSIDE RECORDS SUMMARY | 2025-06-17 10:39 | XMS_ITS | Encounter Summary ---
Author Organization [facility] ideasoft tem Address [id number] [address] [place] [address] Care Team Providers Care Retail Greeting Card Merchandiser Name Role Phone Riddhi Plata MD Primary Care Provider [phone] Reason for Visit * ReasonCommentsShortness of BreathPt states SOB for the past couple days. Pain in ribs for about 1 week. States she is 23 weeks . Denies any chest pain. Encounter Details DateTypeDepartmentCare Team (Latest Contact Info)Sjiybevzjnh07/08/2025 10:39 AM EDT - 06/17/2025 12:10 PM EDTEmergency [facility] [address] [place] [id number] Jaswinder Melvin MD [address] [place] [address] [address] [place] [address] Symptomatic cholelithiasis (Primary Dx) Discharge Disposition: Home Social History Tobacco UseTypesPacks/DayYears UsedDateSmoking Tobacco: NeverSmokeless Tobacco: NeverAlcohol UseStandard Drinks/WeekCommentsNot Currently0 (1 standard drink = 0.6 oz pure alcohol)socialUNIVERSITY [facility] UtilitiesAnswerDate RecordedIn the past 12 months has the [employer], [employer], oil, or water [employer] threatened to shut off services in your home?No4AUDIT-CAnswerDate RecordedQ1: How often do you have a drink containing alcohol?Never04/23/2024Q2: How many drinks containing alcohol do you have on a typical day when you are drinking?Patient does not drink 04/23/2024Q3: How often do you have six or more drinks on one occasion?Never 04/23/2024HQ-2AnswerDate RecordedTotal Xfdcj287RAPARE - Transportation AnswerDate RecordedIn the past 12 months, has lack of transportation kept you from medical appointments or from getting medications?No04/23/2024In the past 12 months, has lack of transportation kept you from meetings, work, or from getting things needed for daily living?No04/23/2024Housing InstabilityAnswerDate RecordedAre you worried or concerned that in the next two months you may not have stable housing that you own, rent or stay in as a part of a household?No 04/23/2024hildcareAnswerDate TmwfldttNxwjwyrzpCjsogud23/06/2019EmploymentAnswer Date GbisjcctNkxoyizwnxObipoow65/06/2019Hunger ScreeningAnswerDate Recorded Within the past 12 months we worried whether our food would run out before we got money to buy more.Never True06/17/2025Within the past 12 months the food we bought just didn't last and we didn't have money to get more.Never True 06/17/2025Purpose - LifeAnswerDate RecordedPurpose and direction in lifeUnknown 1Estimated Date of SyfceekpLtacycycUdh13/06/2026Based on last menstrual period of 01/09/2025Sex and Gender InformationValueDate RecordedSex Assigned at ZznxyJbsfze41/20/2022 9:31 PM ESTLegal YyhFnelcc66/06/2015 11:49 AM EDTGender HmcmhlhiWyutdx60/20/2022 9:31 PM ESTSexual OrientationStraight 07/30/2022 9:31 PM ESTdocumented as of this encounter Last Filed Vital Signs Vital SignReadingTime TakenCommentsBlood Upxqoics560/4710/04/2025 10:45 AM EDT Rjatv213106/17/2025 12:09 PM UAHAqnatosygrz35.9 ??C (98.4 ??F)06/17/2025 10:42 AM EDTRespiratory Dfoy2287 12:09 PM EDTOxygen Ffugfqdsmg002%06/17/2025 12:09 PM EDTInhaled Oxygen Concentration--Amfvnj982.3 kg (230 lb)06/17/2025 10:42 AM TFOBlwvdl779.9 cm (5' 1 )06/17/2025 10:42 AM EDTBody Mass Index43.46 06/17/2025 10:42 AM EDTdocumented in this encounter Discharge Instructions * Attachments The following attachments cannot be sent through Care Everywhere. * Gallstones ??? ED discharge instructions (Kazakh) documented in this encounter Medications at Time of Discharge MedicationSigDispense QuantityRefillsLast FilledStart DateEnd Date albuterol (PROVENTIL HFA;VENTOLIN HFA) 90 mcg/actuation inhaler Indications:Mild intermittent asthma, unspecified whether complicatedInhale 2 puffs every 4 (four) hours as needed for wheezing. 18 g 07/28/2022 aspirin 81 mg Indications:20 weeks gestation of ,Chronic hypertension affecting pregnancyTake 1 tablet (81 mg total) by mouth in the morning. 30 tablet 6005/29/2025 blood sugar diagnostic strip Indications:20 weeks gestation of ,History of gestational diabetes in prior , currently Check fingersticks 4 times daily, fasting and 1 hour after the start of a meal 100 strip busPIRone (BUSPAR) 15 mg tablet Take 1 tablet (15 mg total) by mouth 2 (two) times a day as needed. cholecalciferol 1,000 units tablet Indications:Vitamin D deficiencyTake 1 tablet (1,000 Units total) by mouth in the morning for 30 days. 30 tablet 30951 citalopram (CeleXA) 20 mg tablet Indications:anxiety with depressionTake 1 tablet (20 mg total) by mouth nightly Indications: anxiousness associated with depression. cyanocobalamin (VITAMIN B-12) 1,000 mcg/mL injection Indications:History of Bonnie-en-Y gastric bypass,Postsurgical malabsorption, Malnutrition following gastrointestinal surgery,B12 deficiencyInject 1 mL (1,000 mcg total) into the appropriate muscle every 30 (thirty) days. 3 mL enoxaparin (LOVENOX) 40 mg/0.4 mL syringe Indications:20 weeks gestation of ,History of maternal pulmonary embolusInject 0.4 mL (40 mg total) under the skin in the morning and at bedtime. 12 mL ferrous sulfate 325 (65 FE) MG tablet Indications:History of Bonnie-en-Y gastric bypass,Postsurgical malabsorption, Malnutrition following gastrointestinal surgery,Iron deficiencyTake 1 tablet (325 mg total) by mouth in the morning. 90 tablet folic acid (FOLVITE) 400 MCG tablet Take 1 tablet (400 mcg total) by mouth in the morning. 30 tablet labetaloL (NORMODYNE) 200 mg tablet Take 1 tablet (200 mg total) by mouth 3 (three) times a day. omeprazole (PriLOSEC OTC) 20 mg EC tablet Take 1 tablet (20 mg total) by mouth in the morning. 115/iron/folic acid ( 19 ORAL) Take by mouth. sennosides-docusate sodium (SENOKOT-S) 8.6-50 mg Take 1 tablet by mouth in the morning. 30 tablet syringe with needle (BD LUER-KARENA SYRINGE) 3 mL 25 x 1 1/2 syringe Indications:History of Bonnie-en-Y gastric bypass,Postsurgical malabsorption, Malnutrition following gastrointestinal surgery,B12 deficiency1 SYRG by miscellaneous route every 30 (thirty) days. 3 each documented as of this encounter ED Notes * Jaswinder Melvin MD - 06/17/2025 10:52 AM EDT Images from the original note were not included. [facility] - EMERGENCY Pt Name: Shira Jett Birthdate: 1995 Chief Complaint: Chief Complaint Patient presents with Shortness of Breath Pt states SOB for the past couple days. Pain in ribs for about 1 week. States she is 23 weeks . Denies any chest pain. History of Present Illness: Initial evaluation performed at 10:[address] Lizeth Melvin. Patient is a 30 y.o. female who presents to the ED for evaluation of shortness of breath. Kirit statesdavon is about 20 weeks and was sent here by maternal- medicine for concern of shortness of breath with pain underneath both sides of her ribs. Pt states this is her third , and she has had preeclampsia with the other two pregnancies. She states that her pain started about a week ago, and the shortness of breath started yesterday. She states that the pain started out of nowhere, with no cause, and at first she thought it was gas pain. The shortness of breath started out of no where as well, and is usually worse when she is standing up and trying to do anything. She statesdavon does get a slight cough from this issue, but it is not productive. Pt states that nothing really makes the pain worse, except sometimes eating which also makes her shortness of breath worse. She states does still have her gallbladder and has history of bariatric surgery. She denied any chest pain, swelling in legs, smoking, or any vaginal bleeding. She states she has experienced some slight cramping and feeling as if her muscles are stiff. She also denied any recent travel or surgeries. Pt states she is on Lovenox for her history of pulmonary embolism. She denied missing any doses. She states her was conceived normally. 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 used: No Past Medical History: Past Medical History: Diagnosis Date ADHD (attention deficit hyperactivity disorder) Anxiety Asthma, mild intermittent Depression Disorder of endocrine system GERD (gastroesophageal reflux disease) Gestational diabetes 12/09/2018 H/O gastric bypass History of anemia while History of pneumonia History of hypertension History of pre-eclampsia History of pulmonary embolism Irregular heart beat Migraine Obesity Obstructive sleep apnea PCOS (polycystic ovarian syndrome) Visual impairment stigmatism Past Surgical History: Past Surgical History: Procedure Laterality Date CARDIAC CATHETERIZATION 07/30/2022 CARDIAC CATHETERIZATION 11/23/2018 RUT DV5 BYPASS GASTRIC BONNIE-EN Y N/A 04/23/2024 Performed by Ken Manzo MD at [facility] FINE NEEDLE ASPIRATION 06/14/2020 US Guided Percutaneous Aspiration MINI-LAPAROTOMY removal of IUD PELVIC LAPAROSCOPY 11/03/2022 with removal of IUD Family History: Family History Problem Relation Age [...] Heart defect Neg Hx Sudden Neg Hx Social History: Social History Socioeconomic History Marital status: Tobacco Use Smoking status: Never Smokeless tobacco: Never Vaping Use Vaping status: Never Used Substance and Sexual Activity Alcohol use: Not Currently Comment: social Drug use: Never Sexual activity: Defer Partners: Female control/protection: Abstinence, Condom, None Other Topics Concern Caffeine Use Yes Social Drivers of Health Financial Resource Strain: Low Risk (11/29/2021) Received from [facility] Overall Financial Resource Strain (CARDIA) Difficulty of Paying Living Expenses: Not hard at all Food Insecurity: No Food Insecurity (06/17/2025) Hunger Screening Food Insecurity - Worry: Never True Food Insecurity - Inability: Never True Transportation Needs: No Transportation Needs (04/23/2024) PRAPARE - Transportation Lack of Transportation (Medical): No Lack of Transportation (Non-Medical): No Interpersonal Safety: Not At Risk (04/23/2024) Humiliation, Afraid, Rape, and Kick questionnaire Fear of Current or Ex-Partner: No Emotionally Abused: No Physically Abused: No Sexually Abused: No Housing Instability: Low Risk (04/23/2024) Housing Instability Housing Instability: No Review of Systems: Review of Systems Physical Exam: ED Triage Vitals [06/17/25 1042] Temp Heart Rate Resp BP SpO2 36.9 ??C (98.4 ??F) 50 16 116/47 99 % Temp Source Heart Rate Source Patient Position BP Location FiO2 (%) Oral -- High-fowlers Left arm -- Vitals: 06/17/25 1042 06/17/25 1045 06/17/25 1209 BP: 116/47 116/47 Temp: 36.9 ??C (98.4 ??F) TempSrc: Oral Pulse: 50 72 Resp: 16 18 SpO2: 99% 99% 100% MAP (mmHg): 66 Height: 154.9 cm (5' 1 ) Weight: 104.3 kg (230 lb) 100 Physical Exam Vitals and nursing note reviewed. Constitutional: General: She is awake. She is not in acute distress. HENT: Head: Normocephalic and atraumatic. Eyes: Conjunctiva/sclera: Conjunctivae normal. Cardiovascular: Rate and Rhythm: Normal rate and regular rhythm. Heart sounds: No murmur heard. Pulmonary: Effort: Pulmonary effort is normal. No tachypnea. Breath sounds: Normal breath sounds and air entry. No decreased breath sounds, wheezing, rhonchi orrales. Chest: Chest wall: No tenderness. Abdominal: General: There is no distension. Palpations: Abdomen is soft. Tenderness: There is abdominal tenderness in the right upper quadrant. Positive signs include Walters's sign. Musculoskeletal: General: Normal range of motion. Cervical back: Normal range of motion and neck supple. Skin: General: Skin is warm and dry. Neurological: General: No focal deficit present. Mental Status: She is alert and oriented to person, place, and time. GCS: GCS eye subscore is 4. GCS verbal subscore is 5. GCS motor subscore is 6. Procedure: Procedures Re-evaluation: Re-Evaluation Medical Decision Making Problems Addressed: Symptomatic cholelithiasis: undiagnosed new problem with uncertain prognosis Amount and/or Complexity of Data Reviewed Labs: ordered. Decision-making details documented in ED Course. Radiology: ordered. Decision-making details documented in ED Course. ED Course: ED Course as of 06/17/25 1505 SunJun 17, 2025 1134 Lipase within normal indices, lessens concerns for pancreatitis. Mild leukocytosis likely related to , H&H reassuring against acute clinically significant anemia, normal platelets, sodium mildly low, no other electrolyte derangements, renal function within normal indices, unremarkable liver panel. Patient is on Lovenox and has not missed any doses therefore I have very low suspicion for acute VTE. No fever or productive cough to suggest pneumonia. [RH] 1135 Ultrasound abdomen limited Independently reviewed, gallstones present with the acoustic shadowing, no pericholecystic fluid. [RH] 1152 Ultrasound abdomen limited IMPRESSION: Cholelithiasis without sonographic evidence of acute cholecystitis. [RH] 1158 Plan to discharge patient with follow up to primary care physician. Patient given strict return precautions. Patient expressed understanding. All questions and concerns answered and addressed. Patient agreeable to discharge plan. [RH] ED Course User Index [RH] Jaswinder Melvin MD Clinical Impressions as of 06/17/25 1505 Symptomatic cholelithiasis . ED Disposition ED Disposition Discharge Date/Time SunJun 17, 2025 11:58 AM Comment At the time of discharge, the plan has been discussed with the patient regarding the diagnosis and prognosis. All questions have been answered. Verbal discharge instructions were discussed with the patient. The patient has been advised to follow up w ith their Primary Care Provider and Specialist within 1-2 days. The patient was also instructed to return to the ED if their symptoms change, worsen, new symptoms arise or if they have any additional concerns. . Please note that portions of this note were completed with a voice recognition program. Efforts were made to edit the dictations but occasionally words are mis-transcribed. Sher Weber 06/17/25 1103 Sher Weber 06/17/25 1112 Sher Weber 06/17/25 1141 Jaswinder Melvin MD 06/17/25 1505 documented in this encounter Plan of Treatment DateTypeDepartmentCare Team (Latest Contact Info)Iijgnthkder01/30/2025 9:45 AM EDTAppointment [facility] Imaging [address] [place] [phone] 07/09/2025 11:30 AM EDTOffice Visit [facility]aternal- [facility] at [facility] [address] [place] [address] Sana Lima MD [address] [place] [address] documented as of this encounter Goals GoalPatient Goal TypeAssociated ProblemsRecent ProgressPatient-Stated?Author safe discharge to home GeneralYesTrimble, Kate, RN Note: Evaluation of progress towards goal: safe transition from hospital to home with family support. documented as of this encounter Procedures Procedure NamePriorityDate/TimeAssociated DiagnosisCommentsUS ABDOMEN LMTDSTAT 06/17/2025 11:31 AM EDT ER EXTRA HSKERXMRE35/08/2025 11:24 AM EDT POCT NURSING URINE MACROSCOPIC FQJrhcuip70/08/2025 11:09 AM EDT EXTRA TUBES BLUE BQRKozrjui69/08/2025 11:04 AM EDT EXTRA XFBPPQtablpi41/08/2025 11:04 AM EDT CBC WITH AUTO FRNDCRYGBKYMEKBT12/08/2025 11:04 AM EDT CQAUBYFHFR36/08/2025 11:04 AM EDT COMPREHENSIVE METABOLIC OQPRYNTPK62/08/2025 11:04 AM EDT documented in this encounter Results * Ultrasound abdomen limited (06/17/2025 11:31 AM EDT)Anatomical Region LateralityModalityBody, AbdomenUltrasoundSpecimen (Source)Anatomical Location / LateralityCollection Method / VolumeCollection TimeReceived Time06/17/2025 11:33 AM EDT Narrative 06/17/2025 11:35 AM EDT US ABDOMEN LMTD HISTORY: ??Right upper quadrant pain COMPARISON: CT abdomen pelvis dated 10/26/2023 TECHNIQUE: Multiple real-time grayscale images were obtained in transverse and sagittal projections. Color Doppler was used. FINDINGS: Visualized portions of liver are homogenous in echotexture without demonstrated focal lesion. No intrahepatic biliary dilatation. ??The common duct is not dilated and measures 0.4 cm. Main portal vein is patent with appropriate direction of flow. Gallstone measures 0.9 cm without gallbladder distention, wall thickening, or pericholecystic fluid. Technologist reports negative sonographic Walters's sign. Visualized portions of the pancreatic head and body are unremarkable. Provided images of the right kidney show no abnormalities. IMPRESSION: Cholelithiasis without sonographic evidence of acute cholecystitis. Finalized by Murali Mendoza MD on 06/17/2025 11:35 AM Procedure Note Murali Mendoza MD - 06/17/2025 US ABDOMEN LMTD HISTORY: Right upper quadrant pain COMPARISON: CT abdomen pelvis dated 10/26/2023 TECHNIQUE: Multiple real-time grayscale images were obtained in transverseand sagittal projections. Color Doppler was used. FINDINGS: Visualized portions of liver are homogenous in echotexture withoutdemonstrated focal lesion. No intrahepatic biliary dilatation. The common duct is not dilated andmeasures 0.4 cm. Main portal vein is patent with appropriate direction of flow. Gallstone measures 0.9 cm without gallbladder distention, wall thickening,or pericholecystic fluid. Technologist reports negative sonographicMurphy's sign. Visualized portions of the pancreatic head and body are unremarkable. Provided images of the right kidney show no abnormalities. IMPRESSION: Cholelithiasis without sonographic evidence of acute cholecystitis. Finalized by Murali Mendoza MD on 06/17/2025 11:35 AM Authorizing ProviderResult TypeResult StatusJaswinder VEGA US ORDERABLES Final Result * Er Extra Urine (06/17/2025 11:24 AM EDT)ComponentValueRef RangeTest Method Analysis TimePerformed AtPathologist SignatureExtra TubeAuto Resulted 06/17/2025 1:01 PM EDTPROMEDST. BERNARDINE MEDICAL CENTERpecimen (Source) Anatomical Location / LateralityCollection Method / VolumeCollection Time Received TimeUrineUrine / UnknownCollection / Aaoxxvh5206/17/2025 11:24 AM EDT 06/17/2025 11:24 AM EDT Narrative Authorizing ProviderResult TypeResult StatusJaswinder Melvin MDURINE ORDERABLES Final ResultPerforming OrganizationAddressCity/State/ZIP CodePhone Number [facility] [address] [place] [address], [place] * POCT Nursing Urine Macroscopic UA (06/17/2025 11:09 AM EDT)ComponentValueRef RangeTest MethodAnalysis TimePerformed AtPathologist Psychiatric Urine Specific Gravity1.0251.010, 1.015, 1.020, 1.4129306/17/2025 11:10 AM EDT [facility] Urine Leukocyte EsteraseNegative Mtvuvzni75/08/2025 11:10 AM [facility]rine KgybfnzWfgseadfWnoopouk46/08/2025 11:10 AM [facility] Urine pH6.55.0, 6.0, 6.5, 7.0, 7.5, 8.0, 8.5, 5.510 11:10 AM [facility] Urine ProteinNegativeNegative 06/17/2025 11:10 AM [facility] Urine Glucose SnrifdozQldaksay17/08/2025 11:10 AM [facility] Urine MqlqrkhDnoapppbOyhdcxbz37/08/2025 11:10 AM [facility] Urine Urobilinogen2.0 E.U./dL06/17/2025 11:10 AM [facility] Urine MvznvbvqtBtxdwqbnDxeaeupy33/08/2025 11:10 AM [facility] Urine Blood/HGBNegativeNegative 06/17/2025 11:10 AM [facility]ITALpecimen (Source) Anatomical Location / LateralityCollection Method / VolumeCollection Time Received JhsoFkeyl11/08/2025 11:09 AM EDT1 11:10 AM EDT Narrative Authorizing ProviderResult TypeResult StatusJaswinder Melvin MDPOINT OF CARE TEST ORDERABLESFinal ResultPerforming OrganizationAddressCity/State/ZIP CodePhone Number [facility] [address] [place] [address], * Light Blue Top (06/17/2025 11:04 AM EDT)ComponentValueRef RangeTest Method Analysis TimePerformed AtPathologist SignatureExtra TubeAuto Resulted 06/17/2025 1:01 PM EDSCCI HOSPITAL LIMApecimen (Source) Anatomical Location / LateralityCollection Method / VolumeCollection Time Received TimeBloodVenous blood / Dcgehht2106/17/2025 11:04 AM EDT1 11:12 AM EDT Narrative Authorizing ProviderResult TypeResult StatusJaswinder GILBERT BLOOD ORDERABLES Final ResultPerforming OrganizationAddressCity/State/ZIP CodePhone Number [facility] [address] [place] [address], * (ABNORMAL) Comprehensive metabolic panel (06/17/2025 11:04 AM EDT)Component ValueRef RangeTest MethodAnalysis TimePerformed AtPathologist SignatureSODIUM 133(L)134 - 146 mmol/L1 11:31 AM [facility] WESTPOTASSIUM3.63.5 - 5.0 mmol/L1 11:31 AM [facility] WESTCHLORIDE10598 - 109 mmol/L1 11:31 AM [facility] WESTCARBON IDLAXBB08(L)22 - 32 mmol/L1 11:31 AM [facility] WESTANION GAP85 - 15 mmol/L1 11:31 AM [facility] WESTBLOOD UREA MSFYNRVU740 - 23 mg/dL 06/17/2025 11:31 AM [facility] WESTCREATININE0.540.40 - 1.00 mg/dL06/17/2025 11:31 AM [facility] WESTComment: METHOD TRACEABLE TO IDMS DWYBHWOFGALZKUX8162 - 99 mg/dL06/17/2025 11:31 AM EDT [facility] CENTERCALCIUM8.58.5 - 10.5 mg/dL06/17/2025 11:31 AM [facility] WESTTOTAL PROTEIN6.36.0 - 8.0 g/dL 06/17/2025 11:31 AM [facility] WESTALBUMIN3.0(L)3.2 - 5.3 g/dL06/17/2025 11:31 AM [facility] WESTALKALINE VPWQAKLVDSI1141 - 130 U/L1 11:31 AM [facility] WESTAST17<=41 U/L1 11:31 AM [facility] WESTALT17<=31 U/L1 11:31 AM [facility] WESTBILIRUBIN,TOTAL0.80.3 - 1.2 mg/dL06/17/2025 11:31 AM [facility] WESTEGFR Non-Race Dependent>90>=60 ml/min/1.73sq.m 06/17/2025 11:31 AM [facility] WESTComment: eGFR not reported due to non-numeric value for Creatinine. Reported eGFR is based on the CKD-EPI 2020 equation that does not use a race coefficient. Specimen (Source)Anatomical Location / LateralityCollection Method / Volume Collection TimeReceived TimeBloodVenous blood / UnknownVenipuncture / Unknown 06/17/2025 11:04 AM EDT1 11:11 AM EDT Narrative Authorizing ProviderResult TypeResult StatusJaswinder GILBERT BLOOD ORDERABLES Final ResultPerforming OrganizationAddressCity/State/ZIP CodePhone Number [address] [place] [address], * Lipase (06/17/2025 11:04 AM EDT)ComponentValueRef RangeTest MethodAnalysis TimePerformed AtPathologist PwuacyomzKMBPRN7823 - 40 U/L1 11:29 AM [facility]ITALpecimen (Source)Anatomical Location / LateralityCollection Method / VolumeCollection TimeReceived TimeBloodVenous blood / UnknownVenipuncture / Pdhfsmr7206/17/2025 11:04 AM EDT1 11:11 AM EDT Narrative Authorizing ProviderResult TypeResult StatusJaswinder GILBERT BLOOD ORDERABLES Final ResultPerforming OrganizationAddressCity/State/ZIP CodePhone Number [address] [place] [address], [place] * (ABNORMAL) CBC auto differential (06/17/2025 11:04 AM EDT)ComponentValueRef RangeTest MethodAnalysis TimePerformed AtPathologist RfisxrpfkYGU21.3(H)4 - 11 x10E9/L1 11:15 AM EDTPPEOPLES HOSPITALRBC Count 3.68(L)3.8 - 5.2 X10E12/L1 11:15 AM EDTPPEOPLES HOSPITALHemoglobin11.4(L)11.7 - 15.5 g/dL06/17/2025 11:15 AM EDTPPEOPLES HOSPITALHematocrit32.5(L)35 - 47 %06/17/2025 11:15 AM EDT [facility]ENTERV8880 - 100 fL06/17/2025 11:15 AM EDT [facility]ENTERH30.827 - 34 pg06/17/2025 11:15 AM EDT [facility]ENTERMCHC35.032 - 36 g/dL06/17/2025 11:15 AM EDT [facility] CENTERRDW13.411.5 - 15 %06/17/2025 11:15 AM EDT [facility] CENTERPlatelet Mbmrt771602 - 450 X10E9/L 06/17/2025 11:15 AM EDTPPEOPLES HOSPITALMPV7.67 - 12 fL 06/17/2025 11:15 AM EDTPPEOPLES HOSPITALNeutrophils %65.5% 06/17/2025 11:15 AM EDTPPEOPLES HOSPITALLymphocytes %27.4% 06/17/2025 11:15 AM EDTPPEOPLES HOSPITALMonocytes %4.5% 06/17/2025 11:15 AM EDTPPEOPLES HOSPITALEosinophils %1.3% 06/17/2025 11:15 AM EDTPPEOPLES HOSPITALBasophils %1.3% 06/17/2025 11:15 AM EDSYCAMORE MEDICAL CENTERNeutrophils Absolute (A)7.4(H)1.5 - 6.6 10*3/uL06/17/2025 11:15 AM EDSYCAMORE MEDICAL CENTERLymphocytes Absolute3.11.0 - 3.5 10*3/uL06/17/2025 11:15 AM EDT [facility]ITALMonocytes Absolute0.50.0 - 0.9 10*3/uL 06/17/2025 11:15 AM EDSYCAMORE MEDICAL CENTEREosinophils Absolute 0.10.0 - 0.4 10*3/uL06/17/2025 11:15 AM [facility] Basophils Absolute0.10.0 - 0.2 10*3/uL06/17/2025 11:15 AM [facility]Differential TypeAUTOMATED QRULEYEXYRAH89/08/2025 11:15 AM [facility] (Source)Anatomical Location / LateralityCollection Method / VolumeCollection TimeReceived TimeBloodVenous blood / UnknownVenipuncture / Vwaouot2706/17/2025 11:04 AM EDT1 11:11 AM EDT Narrative Authorizing ProviderResult TypeResult StatusJaswinder Melvin MDLAB BLOOD ORDERABLES Final ResultPerforming OrganizationAddressCity/State/ZIP CodePhone Number [facility] [address] documented in this encounter Visit Diagnoses Diagnosis Symptomatic cholelithiasis- Primary documented in this encounter Additional Health Concerns AssessmentNoted TimePHQ-9 Depression Total Score: 3:05 PM EDT documented as of this encounter Care Teams Team MemberRelationshipSpecialtyStart DateEnd Date Riddhi Plata MD PCP - GeneralFamily Medicine12/09/23documented as of this encounter
--- OUTSIDE RECORDS SUMMARY | 2025-06-23 04:05 | XMS_ITS | Encounter Summary ---
Author Organization [facility] centerMulticast Media tem Address [facility] [id number] [address] [place] [address] Care Team Providers Care Reading Coach Name Role Phone Riddhi Plata MD Primary Care Provider [phone] Reason for Visit * ReasonCommentsAbdominal PainPatient reports having rt sided abdominal pain that radiates to rt side of back. Constant and sharp. Tylenol has been ineffective. Denies contractions/tightening. Denies VB, LOF. +FMBack Pain Encounter Details DateTypeDepartmentCare Team (Latest Contact Info)Rzuthabxjwu48/14/2025 4:05 AM EDT - 06/23/2025 9:28 AM EDTEmergency [facility] [address] [place] [id number] Spencer Melendez DO [address] [place] [address] Nita Dunlap MD [address] [place] [address] Abdominal pain of multiple sites (Primary Dx) Discharge Disposition: Home Social History Tobacco UseTypesPacks/DayYears UsedDateSmoking Tobacco: NeverSmokeless Tobacco: NeverAlcohol UseStandard Drinks/WeekCommentsNot Currently0 (1 standard drink = 0.6 oz pure alcohol)[facility] UtilitiesAnswerDate RecordedIn the past 12 months has the electric, gas, oil, or water company threatened to shut off services in your home?No06/23/2025UDIT-CAnswerDate RecordedQ1: How often do you have a drink containing alcohol?Never04/23/2024Q2: How many drinks containing alcohol do you have on a typical day when you are drinking?Patient does not drink 04/23/2024Q3: How often do you have six or more drinks on one occasion?Never 04/23/2024Overall Financial Resource Strain (CARDIA)AnswerDate RecordedHow hard is it for you to pay for the very basics like food, housing, medical care, and heating?Not hard at all06/23/2025PHQ-2AnswerDate RecordedTotal [id number] PRAPARE - TransportationAnswerDate RecordedIn the past 12 months, has lack of transportation kept you from medical appointments or from getting medications?No 06/23/2025In the past 12 months, has lack of transportation kept you from meetings, work, or from getting things needed for daily living?No06/23/2025 Housing InstabilityAnswerDate RecordedAre you worried or concerned that in the next two months you may not have stable housing that you own, rent or stay in as a part of a household?No06/23/2025hildcareAnswerDate RecordedDo problems getting childcare administrator make it difficult for you to work or study?No06/23/2025 EmploymentAnswerDate VrpizgqbXbcycqpapeKbbtqnp72/06/2019Hunger ScreeningAnswer Date RecordedWithin the past 12 months we worried whether our food would run out before we got money to buy more.Never True06/23/2025Within the past 12 months the food we bought just didn't last and we didn't have money to get more.Never True06/23/2025Purpose - LifeAnswerDate RecordedPurpose and direction in life Ipjlkwx17/27/2021Estimated Date of EldlwdqwRpgklbshGiq44/06/2026Based on last menstrual period of 01/09/2025Sex and Gender InformationValueDate RecordedSex Assigned at ElhvoEtumpx15/20/2022 9:31 PM ESTLegal BueEzppcj21/06/2015 11:49 AM EDTGender ZphdsleaWsnnot36/20/2022 9:31 PM ESTSexual OrientationStraight 07/30/2022 9:31 PM ESTdocumented as of this encounter Last Filed Vital Signs Vital SignReadingTime TakenCommentsBlood Dtlgemrb50/561 7:07 AM EDT Cxxfp322106/23/2025 7:07 AM BLZNwvydzojpew27.8 ??C (98.2 ??F)06/23/2025 7:07 AM EDTRespiratory Tlle5397 7:07 AM EDTOxygen Oclupztvjy26%06/23/2025 5:39 AM EDTInhaled Oxygen Concentration--Yqyaeu691.3 kg (230 lb)06/23/2025 4:11 AM EZRWncztj989.9 cm (5' 1 )06/23/2025 4:11 AM EDTBody Mass Index43.4606/23/2025 4:11 AM EDTdocumented in this encounter Discharge Instructions * Attachments The following attachments cannot be sent through Care Everywhere. * Choosing surgery to treat gallstones (German) * [place] diet (German) documented in this encounter Medications at Time of Discharge MedicationSigDispense QuantityRefillsLast FilledStart DateEnd Date acetaminophen (TYLENOL EXTRA STRENGTH) 500 mg tablet Indications:painTake 3 tablets (1,500 mg total) by mouth every 8 (eight) hours as needed for pain Indications: pain. albuterol (PROVENTIL HFA;VENTOLIN HFA) 90 mcg/actuation inhaler Indications:Mild intermittent asthma, unspecified whether complicatedInhale 2 puffs every 4 (four) hours as needed for wheezing. 18 g 07/28/2022 aspirin 81 mg Indications:20 weeks gestation of ,Chronic hypertension affecting pregnancyTake 1 tablet (81 mg total) by mouth in the morning. 30 tablet blood sugar diagnostic strip Indications:20 weeks gestation [...] the morning and at bedtime. 12 mL 11005/29/2025 ferrous sulfate 325 (65 FE) MG tablet [...] 3 each documented as of this encounter Progress Notes * KATINA Pandey - 06/23/2025 9:07 AM EDT S: Continues to have some pain in her upper right quadrant with palpation Only with palpation. Right upper back pain remains continuously. Denies any nausea and has not had any vomiting. Ate regular diet. O: 98.2-58-18, BP 97/[address] and time Respirations ar e easy. Lungs clear to auscultation on all casiano. AP is regular rate and rhythm without murmur noted. Abdomen is soft, non distended, active bowel sounds in all four quadrants. She [place] have some tenderness in the right upper quadrant. No hepatomegaly noted. No CVA tenderness noted but states she has constant pain in her mid right back area. Voiding without difficulty. Gravid uterus at 23 weeks, non tender uterus. [place] was silent all night. Stable FHT with doppler this AM. Extremities without edema, tenderness or inflammation. Negative Homans' sign bilaterally. CT this morning is negative for any evidence of acute pulmonary Embolism or acute pulmonary infiltrate. S: 23 weeks gestation that is stable No evidence of pulmonary embolism Known cholelithiasis P: Discharge to home. She is to call her OB provider as well as MFM and let them know of this Visit and the results. Given written information on diet to help with symptoms of cholelithiasis. Discussed options of surgical removal of gall stones once her is complete and she has delivered. Keep her regular OB appointment as scheduled. KATINA Pandey 06/23/25 0936 documented in this encounter ED Notes * Spencer Melendez DO - 06/23/2025 4:18 AM EDT Images from the original note were not included. [facility] - EMERGENCY Pt Name: Shira Jett Birthdate: 1995 Chief Complaint: Chief Complaint Patient presents with ??? Abdominal Pain ??? Back Pain History of Present Illness: 30-year-old female at roughly 24 weeks gestation presenting for evaluation of abdominal pain. She states that the pain is located in the right upper quadrant, the right side of the middle of herback, and radiation down the abdomen and into the lower back. She states this is similar to when she was previously evaluated and found to have gallstones however no evidence of cholecystitis. She was subsequently discharged at that encounter about a week ago. She has had waxing and waning symptomshowever this evening she had acute onset of unrelenting pain. She took some Tylenol and last took 1500 mg at 0130 this morning. She denies any fevers, chills, nausea, vomiting, lightheadedness, dizziness, chest pain, shortness of breath. Pain is worse with palpation and improved slightly with sitting still but still present. Past Medical History: Past Medical History: Diagnosis Date ??? ADHD (attention deficit hyperactivity disorder) ??? Anxiety ??? Asthma, mild intermittent ??? Depression ??? Disorder of endocrine system ??? GERD (gastroesophageal reflux disease) ??? Gestational diabetes 12/09/2018 ??? H/O gastric bypass ??? History of anemia while ??? History of pneumonia ??? History of hypertension ??? History of pre-eclampsia ??? History of pulmonary embolism ??? Irregular heart beat ??? Migraine ??? Obesity ??? Obstructive sleep apnea ??? PCOS (polycystic ovarian syndrome) ??? Visual impairment stigmatism Past Surgical History: Past Surgical History: Procedure Laterality Date ??? CARDIAC CATHETERIZATION 07/30/2022 ??? CARDIAC CATHETERIZATION 11/23/2018 ??? ALEJOI DV5 BYPASS GASTRIC BONNIE-EN Y N/A 04/23/2024 Performed by Ken Manzo MD at [facility] ??? FINE NEEDLE ASPIRATION 06/14/2020 US Guided Percutaneous Aspiration ??? MINI-LAPAROTOMY removal of IUD ??? PELVIC LAPAROSCOPY 11/03/2022 with removal of IUD Family History: Family History Problem Relation Age of Onset ??? defects Paternal Grandfather ??? Diabetes Paternal Grandfather ??? Autoimmune disease Paternal Grandmother lupus ??? Cancer Paternal Grandmother ??? Diabetes Paternal Grandmother ??? Asthma Paternal Grandmother ??? Breast cancer Paternal Grandmother ??? Cancer Maternal Grandmother ??? Breast cancer Maternal Grandmother ??? Diabetes Maternal Grandmother ??? Ovarian cancer Maternal Grandmother ??? defects Maternal Grandfather ??? Diabetes Father ??? Hypertension Father ??? Arthritis Father ??? Depression Father ??? Clotting disorder Father ??? COPD Father ??? Mental illness Father ??? Autoimmune disease Mother thyroid disease ??? Diabetes Mother ??? Hypertension Mother ??? Anemia Mother ??? Anesthesia problems Neg Hx ??? Autism Neg Hx ??? Developmental delay Neg Hx ??? Down syndrome Neg Hx ??? Bleeding Disorder Neg Hx ??? Heart defect Neg Hx ??? Sudden Neg Hx Social History: Social History Socioeconomic History ??? Marital status: Tobacco Use ??? Smoking status: Never ??? Smokeless tobacco: Never Vaping Use ??? Vaping status: Never Used Substance and Sexual Activity ??? Alcohol use: Not Currently Comment: social ??? Drug use: Never ??? Sexual activity: Defer Partners: Female control/protection: Abstinence, Condom, None Other Topics Concern ??? Caffeine Use Yes Social Drivers of Health Financial Resource Strain: Low Risk (11/29/2021) Received from [facility] Overall Financial Resource Strain (CARDIA) ??? Difficulty of Paying Living Expenses: Not hard at all Food Insecurity: No Food Insecurity (06/23/2025) Hunger Screening ??? Food Insecurity - Worry: Never True ??? Food Insecurity - Inability: Never True Transportation Needs: No Transportation Needs (04/23/2024) PRAPARE - Transportation ??? Lack of Transportation (Medical): No ??? Lack of Transportation (Non-Medical): No Interpersonal Safety: Not At Risk (04/23/2024) Humiliation, Afraid, Rape, and Kick questionnaire ??? Fear of Current or Ex-Partner: No ??? Emotionally Abused: No ??? Physically Abused: No ??? Sexually Abused: No Housing Instability: Low Risk (04/23/2024) Housing Instability ??? Housing Instability: No Review of Systems: Review of Systems Physical Exam: ED Triage Vitals [06/23/25 0411] Temp Heart Rate Resp BP SpO2 -- 83 19 126/65 97 % Temp src Heart Rate Source Patient Position BP Location FiO2 (%) -- Pulse Ox Semi-fowlers Left arm -- Vitals: 06/23/25 0411 BP: 126/65 Pulse: 83 Resp: 19 SpO2: 97% Height: 154.9 cm (5' 1 ) Weight: 104.3 kg (230 lb) Physical Exam Vitals reviewed. HENT: Head: Normocephalic and atraumatic. Eyes: Conjunctiva/sclera: Conjunctivae normal. Cardiovascular: Rate and Rhythm: Normal rate. Pulmonary: Effort: Pulmonary effort is normal. Breath sounds: Normal breath sounds. Abdominal: General: There is no distension. Palpations: Abdomen is soft. Tenderness: There is abdominal tenderness in the right upper quadrant and right lower quadrant. There is right CVA tenderness. Comments: Gravid abdomen Musculoskeletal: General: Normal range of motion. Cervical back: Normal range of motion and neck supple. Skin: General: Skin is warm and dry. Neurological: General: No focal deficit present. Mental Status: She is alert and oriented to person, place, and time. GCS: GCS eye subscore is 4. GCS verbal subscore is 5. GCS motor subscore is 6. Procedure: Procedures Re-evaluation: Re-Evaluation Medical Decision Making 30-year-old female at 24 weeks gestation presenting for evaluation of abdominal pain. On physical examination she appears to be in no apparent distress vital signs are stable. There is some tenderness to palpation throughout the right side of the abdomen as well as in the right flank and lower back. Given her history of cholelithiasis I did keep her in the emergency department to test LFTs and lipase. These were within normal limits. Given her continued symptoms I think she would be best further evaluated in labor and delivery, especially since she is greater than 20 weeks gestation. Called up to labor and delivery and informed them that she would be transferred to their unit. Amount and/or Complexity of Data Reviewed Labs: ordered. Decision-making details documented in ED Course. ED Course: ED Course as of 06/23/25 0509 SunJun 23, [address] Dunlap who agreed with plan to send patient to L&D for further evaluation. [CEM] ED Course User Index [CEM] Spencer A Park, DO Clinical Impressions as of 06/23/25 0509 Abdominal pain of multiple sites . ED Disposition ED Disposition ED Transfer to L&D Date/Time SunJun 23, 2025 5:06 AM Comment -- . Please note that portions of this note were completed with a voice recognition program. Efforts were made to edit the dictations but occasionally words are mis-transcribed. Spencer Melendez DO 06/23/25 0421 Spencer Melendez DO 06/23/25 0507 * Emmanuelle Carlson RN - 06/23/2025 4:12 AM EDT Pt reports worsening RUQ abd pain since 9am yesterday. Taking tylenol without improvement. documented in this encounter Plan of Treatment DateTypeDepartmentCare Team (Latest Contact Info)Zuboiclnsaa45/30/2025 9:45 AM EDTAppointment [facility] [address] [place] [phone] 07/09/2025 11:30 AM EDTOffice Visit Maternal- Medicine at [facility] [address] [place] [address] Sana Lima MD [address] [place] [address] documented as of this encounter Goals GoalPatient Goal TypeAssociated ProblemsRecent ProgressPatient-Stated?Author safe discharge to home Kate Malave RN Note: Evaluation of progress towards goal: safe transition from hospital to home with family support. documented as of this encounter Procedures Procedure NamePriorityDate/TimeAssociated DiagnosisCommentsCT CTA CHESTSTAT 06/23/2025 8:40 AM EDT IXOKFQNCXLYHTP35/14/2025 5:20 AM EDT CBC WITH AUTO NTAWHIZTBNTTUVMW36/14/2025 4:21 AM EDT FDFRMGOQJQ74/14/2025 4:21 AM EDT COMPREHENSIVE METABOLIC QQCNIRAAL72/14/2025 4:21 AM EDT documented in this encounter Results * CT angiogram chest (06/23/2025 8:40 AM EDT)Anatomical RegionLateralityModality Lung, Body, Chest, Vascular, Body CoveraN/AComputed TomographySpecimen (Source)Anatomical Location / LateralityCollection Method / VolumeCollection TimeReceived Time06/23/2025 8:44 AM EDT Narrative 06/23/2025 8:49 AM EDT Clinical History: History of pulmonary embolism. CTA chest: 06/23/2025 Comparison: 07/30/2022 Procedure: Axial images were obtained through the chest following 100 mL Omnipaque 350 intravenously. Three-dimensional reconstructions were performed at a separate workstation under concurrent physician supervision. ??All CT scans at this facility use dose modulation, iterative reconstruction, and/or weight based dosing when appropriate to reduce radiation dose to as low as reasonably achievable. Findings: Evaluation is somewhat inhibited by difficulty positioning the patient. No pulmonary arterial filling defects are present and the caliber of pulmonary vessels is normal. The study is not optimized for thoracic aortic evaluation but no definite abnormality is present. The main pulmonary artery diameter is 2.8 cm. The ascending thoracic aortic diameter is 2.9 cm. The descending thoracic aortic diameter is 1.9 cm. There is no coronary artery calcification. The heart size is within normal limits with no pericardial effusion or filling defect. There is no acute osseous abnormality within the thorax. To rounded calcification in the right thyroid is nonspecific. IMPRESSION: No evidence of acute pulmonary embolism. No acute pulmonary infiltrate. Thyroid calcification is nonspecific. Finalized by Jovanni Gallegos MD on 06/23/2025 8:49 AM Procedure Note Jovanni Gallegos MD - 06/23/2025 Clinical History: History of pulmonary embolism. CTA chest: 06/23/2025 Comparison: 07/30/2022 Procedure: Axial images were obtained through the chest following 100 mL Omnipaque 350 intravenously. Three-dimensional reconstructions wereperformed at a separate workstation under concurrent physiciansupervision. All CT scans at this facility use dose modulation, iterativereconstruction, and/or weight based dosing when appropriate to reduce radiation dose to aslow as reasonably achievable. Findings: Evaluation is somewhat inhibited by difficulty positioning the patient. No pulmonary arterial filling defects are present and the caliber ofpulmonary vessels is normal. The study is not optimized for thoracicaortic evaluation but no definite abnormality is present. The main pulmonary artery diameter is 2.8 cm. The ascending thoracic aortic diameter is 2.9 cm. The descending thoracic aortic diameter is 1.9 cm. There is no coronary artery calcification. The heart size is within normal limits with no pericardial effusion orfilling defect. There is no acute osseous abnormality within the thorax. To rounded calcification in the right thyroid is nonspecific. IMPRESSION: No evidence of acute pulmonary embolism. No acute pulmonary infiltrate. Thyroid calcification is nonspecific. Finalized by Jovanni Gallegos MD on 06/23/2025 8:49 AM Authorizing ProviderResult TypeResult StatusCoribridget Dunlap MDNORMAN SPECIAL[facility] [place] [facility] ORDERABLES Final Result * Urinalysis (06/23/2025 5:20 AM EDT)ComponentValueRef RangeTest MethodAnalysis TimePerformed AtPathologist PlcgevrhcWZOHSMhoajgLqewtw08/14/2025 6:36 AM EDT [facility]ITALTURBIDITYClearClear06/23/2025 6:36 AM EDT [facility]ITALPECIFIC GRAVITY1.0201.003 - 1.035 06/23/2025 6:36 AM EDTPSAMARITAN HOSPITALNITRITENegative Pkzrkorm02/14/2025 6:36 AM EDTPSAMARITAN HOSPITALPH,URINE6.0 5.0 - 8.510 6:36 AM EDPROMEDICA TOLEDO HOSPITALLEUKOCYTE RPARDVLPTihbsyvkKcrkfozk17/14/2025 6:36 AM EDTPSAMARITAN HOSPITALPROTEINNegativeNegative06/23/2025 6:36 AM EDTPSAMARITAN HOSPITALKETONES (URINE)XnmxciqoJpqonnwn63/14/2025 6:36 AM EDT [facility]PITALUROBILINOGEN1.0 eu/dL0.2 eu/dL, 1.0 eu/dL 06/23/2025 6:36 AM EDTPSAMARITAN HOSPITALBILIRUBIN (URINE) YrlhtmybMhpyeqci66/14/2025 6:36 AM EDPROMEDICA TOLEDO HOSPITAL BLOOD/MBWPtftgaxmVakjbqoj53/14/2025 6:36 AM EDPROMEDICA TOLEDO HOSPITALGLUCOSE (URINE)NegativeNegative, 250 mg/dL06/23/2025 6:36 AM EDT [facility] (Source)Anatomical Location / LateralityCollection Method / VolumeCollection TimeReceived TimeUrineUrine specimen collection, clean catch / Vrejbuk7406/23/2025 5:20 AM EDT1 6:32 AM EDT Narrative Authorizing ProviderResult TypeResult StatusCojyoti Dunlap MDURINE ORDERABLES Final ResultPerforming OrganizationAddressCity/State/ZIP CodePhone Number [address] [place] [address], [place] * Lipase (06/23/2025 4:21 AM EDT)ComponentValueRef RangeTest MethodAnalysis Time Performed AtPathologist EqntjizspGOSDFE9058 - 40 U/L1 5:02 AM EDT [facility] (Source)Anatomical Location / LateralityCollection Method / VolumeCollection TimeReceived TimeBloodVenous blood / UnknownVenipuncture / Dnoiqhh8306/23/2025 4:21 AM EDT1 4:44 AM EDT Narrative Authorizing ProviderResult TypeResult StatusJemanjula BROWNAB BLOOD ORDERABLES Final ResultPerforming OrganizationAddressty/State/ZIP CodePhone Number [address] [address], [place] * (ABNORMAL) Comprehensive metabolic panel (06/23/2025 4:21 AM EDT)Component ValueRef RangeTest MethodAnalysis TimePerformed AtPathologist SignatureSODIUM 797571 - 146 mmol/L1 5:05 AM [facility] POTASSIUM3.93.5 - 5.0 mmol/L1 5:05 AM [facility] HOSPITALCHLORIDE10898 - 109 mmol/L1 5:05 AM [facility]ABIL[facility] HOSPITALCARBON MKKXXVB69(L)22 - 32 mmol/L1 5:05 AM EDT [facility]ITALANION GAP85 - 15 mmol/L1 5:05 AM [facility]ABIL[facility]ATION HOSPITALBLOOD UREA LXCIFZWO93 - 23 mg/dL 06/23/2025 5:05 AM [facility]ATION HOSPITALCREATININE0.440.40 - 1.00 mg/dL06/23/2025 5:05 AM [facility]AB[facility]ATION HOSPITALComment: METHOD TRACEABLE TO IDMS NFOKUZWDVJCXIBW6951 - 99 mg/dL06/23/2025 5:05 AM EDT [facility]OSPITALCALCIUM8.78.5 - 10.5 mg/dL06/23/2025 5:05 AM [facility]ABIL[facility]ATION HOSPITALTOTAL PROTEIN6.36.0 - 8.0 g/dL 06/23/2025 5:05 AM [facility]ABIL[facility]ATION HOSPITALALBUMIN3.1(L)3.2 - 5.3 g/dL06/23/2025 5:05 AM [facility] HOSPITALALKALINE FMOWTJDHGLK1012 - 130 U/L1 5:05 AM [facility]OS[facility]ITALAST11<=41 U/L1 5:05 AM [facility] ALT16<=31 U/L1 5:05 AM [facility] BILIRUBIN,TOTAL0.50.3 - 1.2 mg/dL06/23/2025 5:05 AM [facility] REHABILITATION HOSPITALEGFR Non-Race Dependent>90>=60 ml/min/1.73sq.m1 5:05 AM [facility]ABIL[facility]ATION HOSPITALComment: eGFR not reported due to non-numeric value for Creatinine. Reported eGFR is based on the CKD-EPI 2020 equation that does not use a race coefficient. Specimen (Source)Anatomical Location / LateralityCollection Method / Volume Collection TimeReceived TimeBloodVenous blood / UnknownVenipuncture / Unknown 06/23/2025 4:21 AM EDT1 4:44 AM EDT Narrative Authorizing ProviderResult TypeResult StatusJesse Lou Melendez [facility] BLOOD ORDERABLES Final ResultPerforming OrganizationAddressCity/State/ZIP CodePhone Number [facility] [address] [place] [address], * (ABNORMAL) CBC auto differential (06/23/2025 4:21 AM EDT)ComponentValueRef RangeTest MethodAnalysis TimePerformed AtPathologist SignatureWBC9.74 - 11 x10E9/L1 4:49 AM [facility]HABILITATION HOSPITALRBC Count3.38 (L)3.8 - 5.2 X10E12/L1 4:49 AM [facility] Rgsizyqkij02.6(L)11.7 - 15.5 g/dL06/23/2025 4:49 AM [facility]HABILITATION HOSPITALHematocrit29.9(L)35 - 47 %06/23/2025 4:49 AM [facility] HOSPITALMCV8880 - 100 fL06/23/2025 4:49 AM [facility]ABIL[facility]ATION HOSPITALMCH31.327 - 34 pg06/23/2025 4:49 AM [facility]ABIL[facility]ATION HOSPITALMCHC35.332 - 36 g/dL06/23/2025 4:49 AM [facility]ABILITATION HOSPITALRDW13.011.5 - 15 %06/23/2025 4:49 AM [facility]HABILITATION HOSPITALPlatelet Cexpf463303 - 450 X10E9/L1 4:49 AM [facility]ATION HOSPITALMPV7.87 - 12 fL06/23/2025 4:49 AM EDT [facility]ITALNeutrophils %69.6%06/23/2025 4:49 AM EDT [facility] HOSPITALLymphocytes %24.9%06/23/2025 4:49 AM EDT [facility] HOSPITALMonocytes %4.0%06/23/2025 4:49 AM EDT [facility] HOSPITALEosinophils %1.1%06/23/2025 4:49 AM EDT [facility]ITALBasophils %0.4%06/23/2025 4:49 AM EDT [facility]OSPITALNeutrophils Absolute (A)6.8(H)1.5 - 6.6 10*3/uL06/23/2025 4:49 AM EDTPSAMARITAN HOSPITALLymphocytes Absolute2.41.0 - 3.5 10*3/uL06/23/2025 4:49 AM EDTPPOMERENE HOSPITAL HOSPITALMonocytes Absolute0.40.0 - 0.9 10*3/uL06/23/2025 4:49 AM EDTPPOMERENE HOSPITAL HOSPITALEosinophils Absolute0.10.0 - 0.4 10*3/uL06/23/2025 4:49 AM EDTPSAMARITAN HOSPITALBasophils Absolute0.00.0 - 0.2 10*3/uL06/23/2025 4:49 AM [facility] HOSPITALDifferential TypeAUTOMATED GOIXSXDVKQFY74/14/2025 4:49 AM EDTRUMBULL MEMORIAL HOSPITALpecimen (Source)Anatomical Location / LateralityCollection Method / VolumeCollection TimeReceived TimeBloodVenous blood / UnknownVenipuncture / Ljxppvg2706/23/2025 4:21 AM EDT1 4:44 AM EDT Narrative Authorizing ProviderResult TypeResult StatusJesse Lou Melendez [facility]AB BLOOD ORDERABLES Final ResultPerforming OrganizationAddressCity/State/ZIP CodePhone Number [facility] [address] [place] [address], documented in this encounter Visit Diagnoses Diagnosis Abdominal pain of multiple sites- Primary documented in this encounter Administered Medications Medication OrderMAR ActionAction DateDoseRateSite cyclobenzaprine (FLEXERIL) tablet 10 mg 10 mg, oral, Once, On Sun06/23/25 at 0700, For 1 dose Given06/23/2025 7:08 AM EDT10 mg iohexoL (OMNIPAQUE) 350 mg iodine/mL injection 100 mL 100 mL, intravenous, Once in imaging, contrast, Starting on Sun06/23/25 at 0719, For 1 dose, VESICANT (RED) Given06/23/2025 8:22 AM RPE681 mL sodium chloride 0.9 % flush 10 mL 10 mL, intravenous, As needed, line care, Starting on Sun06/23/25 at 0719 Given06/23/2025 7:37 AM EDT10 mL sodium chloride 0.9 % radiology injection 80 mL, intravenous, Once in imaging, pre/post contrast, Starting on Sun06/23/25 at 0719, For 1 dose Given06/23/2025 8:21 AM EDT80 mLdocumented in this encounter Active and Recently Administered Medications Times are shown in EDT.Medication Order/// cyclobenzaprine (FLEXERIL) tablet 10 mg (COMPLETED) 10 mg, oral, Once, On Sun06/23/25 at 0700, For 1 dose * 0708 (Given - Provider: Jenny Duffy RN) Medication Order// iohexoL (OMNIPAQUE) 350 mg iodine/mL injection 100 mL (COMPLETED) 100 mL, intravenous, Once in imaging, contrast, Starting on e 06/23/25 at 0719, For 1 dose, VESICANT (RED) * 0822 (Given - Provider: Anne Maldonado - Comment: lot [id number] exp 03/09/28) sodium chloride 0.9 % flush 10 mL 10 mL, intravenous, As needed, line care, Starting on 06/23/25 at 0719 * 0737 (Given - Provider: Anne Maldonado) sodium chloride 0.9 % radiology injection (COMPLETED) 80 mL, intravenous, Once in imaging, pre/post contrast, Starting on Sun06/23/25 at 0719, For 1 dose * 0821 (Given - Provider: Anne Maldonado) documented in this encounter Additional Health Concerns AssessmentNoted TimePHQ-9 Depression Total Score: 3:05 PM EDT documented as of this encounter Care Teams Team MemberRelationshipSpecialtyStart DateEnd Date Riddhi Plata MD PCP - GeneralFamily Medicine12/09/23documented as of this encounter
--- OUTSIDE RECORDS SUMMARY | 2025-06-24 13:40 | XMS_ITS | Encounter Summary ---
Author Organization [facility] Address [address] [place] [address] Care Team Providers Care Lithographic Printing Machinist Name Role Phone Riddhi Plata MD Primary Care Provider [phone] Reason for Visit * ReasonCommentsRoutine Visit Encounter Details DateTypeDepartmentCare Team (Latest Contact Info)Uyofmhuzzsj90/15/2025 1:40 PM EDTRoutine [facility] [address] [place] [address] Winter English PA [address] [place] [address] Gallstones and inflammation of gallbladder without obstruction (Primary Dx); Second trimester ([facility]); 23 weeks gestation of ([facility]); History of diet controlled gestational diabetes mellitus (GDM); Preeclampsia in period ([facility]); History of pulmonary embolism; Primary hypertension; Diabetes mellitus screening Social History Tobacco UseTypesPacks/DayYears UsedDateSmoking Tobacco: NeverSmokeless Tobacco: NeverAlcohol UseStandard Drinks/WeekCommentsNever0 (1 standard drink = 0.6 oz pure alcohol)Caffeine intake: 1-2 cups per day coffeeEstimated Date of GsstultvNrtmwszbQbn39/06/2026ased on last menstrual period of 01/09/2025Sex and Gender InformationValueDate RecordedSex Assigned at BirthNot on fileLegal Sex Fyqtvj0311/22/2022 9:44 PM EDTGender IdentityNot on fileSexual OrientationNot on filedocumented as of this encounter Last Filed Vital Signs Vital SignReadingTime TakenCommentsBlood Asvvudiu930/7006/24/2025 1:57 PM EDT Pulse--Temperature--Respiratory Rate--Oxygen Saturation--Inhaled Oxygen Concentration--Kwtvlh211 kg (234 lb)06/24/2025 1:57 PM EDTHeight--Body Mass [...] body mass index of 60.0-69.9 in adult ([facility]) 01/26/2023 Polycystic ovarian disease 01/26/2023 Primary hypertension 01/26/2023 Adjustment disorder with anxiety 11/30/2021 Amnesia 05/17/2023 Anxiety 07/07/2019 Anemia 06/26/2019 Depression 06/13/2019 Disorder of endocrine system 05/17/2023 Family history of diabetes during 11/28/2021 Family history of thrombosis 03/17/2022 Frequent headaches 05/17/2023 Gastroesophageal reflux disease 12/15/2019 Gestational diabetes mellitus (GDM) ([facility]) 12/09/2018 History of diet controlled gestational diabetes mellitus (GDM) 11/30/2021 Iron deficiency anemia 12/29/2019 Irregular periods 05/17/2023 Menorrhagia with regular cycle 05/17/2023 Asthma ([facility]) 12/09/2018 Class 3 severe obesity due to excess calories with serious comorbidity and body mass index (BMI) of50.0 to 59.9 in adult ([facility]) 05/17/2023 Nausea and vomiting 05/17/2023 Pneumonia due to infectious organism 07/30/2022 Preeclampsia in period ([facility]) 11/26/2021 Acute pulmonary embolism ([facility]) 05/17/2023 Single subsegmental pulmonary embolism without acute cor pulmonale ([facility]) 05/17/2023 Seasonal allergic rhinitis due to pollen 12/15/2019 Thyroid nodule 05/17/2023 Urinary tract infection without hematuria 05/17/2023 LUCIANO on CPAP 02/22/2023 History of pulmonary embolism 03/17/2022 H/O gastric bypass 04/20/2025 Resolved Ambulatory Problems Diagnosis Date Noted No Resolved Ambulatory Problems Past Medical History: Diagnosis Date Acute memory impairment COVID 02/2020 Encounter for insertion of Mirena IUD GERD without esophagitis Gestational diabetes ([facility]) H/O blood clots H/O: hypertension High blood pressure History of being hospitalized Hormone imbalance Intrauterine device surveillance Irregular bleeding Morbid obesity with BMI of 50.0-59.9, adult ([facility]) Nausea Nausea with vomiting Pneumonia 07/30/2022 hypertension ([facility]) Pulmonary embolism ([facility]) 11/2021 Well woman exam HISTORY PAST MEDICAL [...] nursing note reviewed. Exam conducted with a catering driver present. Vitals: Estimated body mass index is 43.65 kg/m?? as calculated from the following: Height as of 10/10/24: 5' 1 . Weight as of 06/10/25: 231 lb. BP: Patient's last menstrual period was 01/09/2025. ASSESSMENT & PLAN ICD-10-CM 1. Second trimester ([facility]) Z34.92 POCT urinalysis dipstick manually resulted 2. 23 weeks gestation of ([facility]) Z3A.23 3. History of diet controlled gestational diabetes mellitus (GDM) Z86.32 4. Preeclampsia in period ([facility]) O14.95 5. History of pulmonary embolism Z86.711 [...] given A1C/CBC order to have scheduled at [facility]. Pt can't not drink the glucose drink due to having gastric bypass surgery. Pt was advised to make sure to have her blood drawn. PVU. Pt states she was dx w/gallstones at the [facility] on 06/17/2025. Pt states she ended [...] Frequent headaches GERD without esophagitis Gestational diabetes ([facility]) H/O blood clots H/O gastric bypass H/O: hypertension High blood pressure History of being hospitalized Pt was re-admitted to [facility] for HTN (11/2021) , Pt had a baby (11/21/21) Hormone imbalance Intrauterine device surveillance Irregular bleeding Morbid obesity with BMI of 50.0-59.9, adult ([facility]) Nausea Nausea with vomiting Pneumonia 07/30/2022 hypertension ([facility]) Pulmonary embolism ([facility]) 11/2021 Rt. ; [facility] post Well woman exam [3] Family History [...] Plan of Treatment DateTypeDepartmentCare Team (Latest Contact Info)Kldrpexmuud90/29/2025 8:30 AM EDTRoutine [facility] [address] [place] [phone] Winter English PA [address] [place] [address] NameTypePriorityAssociated DiagnosesOrder ScheduleCBC and differentialLabRoutine Diabetes mellitus [...] cholecystitis, without mention of obstruction Second trimester ([facility]) state, incidental 23 weeks gestation of ([facility]) History of diet controlled gestational diabetes mellitus (GDM) Preeclampsia in period ([facility]) History of pulmonary embolism Personal history of venous thrombosis and embolism Primary hypertension Unspecified essential hypertension Diabetes mellitus screening Screening for diabetes mellitus documented in this encounter Additional Health Concerns Active ProblemsNoted DateDiagnosed DatePatient on antidepressant monitoring plan 4Baseline PHQ-904documented as of this encounter Care Teams Team MemberRelationshipSpecialtyStart DateEnd Date Riddhi Plata MD [address] [place] [address] PCP - GeneralFamily Medicine01/16/23documented as of this encounter
--- OUTSIDE RECORDS SUMMARY | 2025-07-01 08:59 | XMS_ITS | Encounter Summary ---
Author Organization [facility] Address [address] [place] [address] Care Team Providers Care Slip Filler Name Role Phone Riddhi Plata MD Primary Care Provider [phone] Encounter Details DateTypeDepartmentCare Team (Latest Contact Info)Rkijsipnmgm32/14/2025Telephone [facility] [address] [place] [address] Bin Morales DO [address] [place] [address] Social History Tobacco UseTypesPacks/DayYears UsedDateSmoking Tobacco: NeverSmokeless Tobacco: NeverAlcohol UseStandard Drinks/WeekCommentsNever0 (1 standard drink = 0.6 oz pure alcohol)Caffeine intake: 1-2 cups per day coffeeEstimated Date of HvaogzoyWqdwvlfpZpz46/06/2026Based on last menstrual period of 01/09/2025Sex and Gender InformationValueDate RecordedSex Assigned at BirthNot on fileLegal Sex Svfhqy2011/22/2022 9:44 PM EDTGender IdentityNot on fileSexual OrientationNot on filedocumented as of this encounter Miscellaneous Notes * Telephone Encounter - Leslye Chairez LPN - 06/23/2025 9:45 AM EDT Patient called the office and she left a voicemail that she is leaving the ER now and that she doeshave Gallstones and she is not sure if she need to follow up with Dr or her PCP. Patient call was returned and she was advised we will have her follow with and she can reach out to her PCP also. Patient states that she was in [place]. Transferred to clerical to schedule appointment. documented in this encounter Plan of Treatment DateTypeDepartmentCare Team (Latest Contact Info)Lxnldfeauux15/29/2025 8:30 AM EDTRoutine [facility] [address] [place] [phone] Winter English PA [address] [place] [address] documented as of this encounter Goals GoalPatient Goal TypeAssociated ProblemsRecent ProgressPatient-Stated?Author Help patient manage antidepressant medication Care PlanPatient on antidepressant monitoring planRiddhi Lerma MD Baseline PHQ-9 Care PlanBaseline PHQ-9Riddhi Lerma, MDdocumented as of this encounter Visit Diagnoses Not on filedocumented in this encounter Additional Health Concerns Active ProblemsNoted DateDiagnosed DatePatient on antidepressant monitoring plan 4Baseline PHQ-904documented as of this encounter Care Teams Team MemberRelationshipSpecialtyStart DateEnd Date Riddhi Plata MD [address] [place] [address] PCP - GeneralFamily Medicine01/16/23documented as of this encounter
--- OUTSIDE RECORDS SUMMARY | 2025-07-01 08:59 | XMS_ITS | Encounter Summary ---
Author Organization [facility] Address [address] [place] [address] Care Team Providers Care Marketing Communication Manager Name Role Phone Riddhi Plata MD Primary Care Provider [phone] Encounter Details DateTypeDepartmentCare Team (Latest Contact Info)Kbcwmkvopix55/09/2025Orders Only CHEVY TAYLOR [email or web address] [place] [address] Leslye Chairez LPN [address] [facility] [address] [facility] Social History Tobacco UseTypesPacks/DayYears UsedDateSmoking Tobacco: NeverSmokeless Tobacco: NeverAlcohol UseStandard Drinks/WeekCommentsNever0 (1 standard drink = 0.6 oz pure alcohol)Caffeine intake: 1-2 cups per day coffeeEstimated Date of DqxorzhqDoperyqpMam13/06/2026Based on last menstrual period of 01/09/2025Sex and Gender InformationValueDate RecordedSex Assigned at BirthNot on fileLegal Sex Dsrthq4111/22/2022 9:44 PM EDTGender IdentityNot on fileSexual OrientationNot on filedocumented as of this encounter Plan of Treatment DateTypeDepartmentCare Team (Latest Contact Info)Eihvvrpgoof31/29/2025 8:30 AM EDTRoutine [facility] [address] [address] [email or web address] [place] [address] Winter English PA [address] [place], [facility] documented as of this encounter Goals GoalPatient Goal TypeAssociated ProblemsRecent ProgressPatient-Stated?Author Help patient manage antidepressant medication Care PlanPatient on antidepressant monitoring Riddhi Mcdonald MD Baseline PHQ-9 Care PlanBaseline PHQ-9Riddhi Lerma, MDdocumented as of this encounter Procedures Procedure NamePriorityDate/TimeAssociated DiagnosisCommentsPAP SMEARRoutine 06/10/2025 12:00 AM EDTdocumented in this encounter Results * Pap Smear (06/10/2025 12:00 AM EDT)Specimen (Source)Anatomical Location / LateralityCollection Method / VolumeCollection TimeReceived TimeSwabCervical swab / Unknown Narrative Authorizing ProviderResult TypeResult StatusFazio Nurse Noms Bcp ObLAB CYTOLOGY ORDERABLESFinal ResultPerforming OrganizationAddressCity/State/ZIP CodePhone Number EXTERNAL LAB documented in this encounter Visit Diagnoses Not on filedocumented in this encounter Additional Health Concerns Active ProblemsNoted DateDiagnosed DatePatient on antidepressant monitoring plan 4Baseline PHQ-904documented as of this encounter Care Teams Team MemberRelationshipSpecialtyStart DateEnd Date Riddhi Plata MD [address] [place] [address] PCP - GeneralFamily Medicine01/16/23documented as of this encounter
--- OUTSIDE RECORDS SUMMARY | 2025-07-01 08:59 | XMS_ITS | Encounter Summary ---
Author Organization [facility] Address [address] [facility] [place] [address] Care Team Providers Care Jigger Crown Pouncing Machine Operator Name Role Phone Riddhi Plata MD Primary Care Provider [phone] Encounter Details DateTypeDepartmentCare Team (Latest Contact Info)Gbdqeztvzzd56/01/2025linisync Result Encounter [facility] External Department Unsolicited Nena Spicer, RONALD [address] [facility] [address] [place] [address] Social History Tobacco UseTypesPacks/DayYears UsedDateSmoking Tobacco: NeverSmokeless Tobacco: NeverAlcohol UseStandard Drinks/WeekCommentsNever0 (1 standard drink = 0.6 oz pure alcohol)Caffeine intake: 1-2 cups per day coffeeEstimated Date of DzkhejcsYexpbhxfNym71/06/2026Based on last menstrual period of 01/09/2025Sex and Gender InformationValueDate RecordedSex Assigned at BirthNot on fileLegal Sex Mrmfme1311/22/2022 9:44 PM EDTGender IdentityNot on fileSexual OrientationNot on filedocumented as of this encounter Plan of Treatment DateTypeDepartmentCare Team (Latest Contact Info)Ajhbtzetdlz34/29/2025 8:30 AM EDTRoutine [facility] [address] [place] [address] Winter English PA [address] [facility] [address] documented as of this encounter Goals GoalPatient Goal TypeAssociated ProblemsRecent ProgressPatient-Stated?Author Help patient manage antidepressant medication Care PlanPatient on antidepressant monitoring Riddhi Mcdonald MD Baseline PHQ-9 Care PlanBaseline PHQ-9Riddhi Lerma, MDdocumented as of this encounter Procedures Procedure NamePriorityDate/TimeAssociated DiagnosisCommentsIGPMIKEIMA HPV,AGE QGYZMfkctvg17/01/2025 9:06 AM EDT documented in this encounter Results * IGP,APTIMA HPV,AGE GDLN (06/10/2025 9:06 AM EDT)ComponentValueRef RangeTest MethodAnalysis TimePerformed AtPathologist SignatureAGE GDLN ACOG TESTINGNote. TBHComment: ?? TESTS ? RESULT ??FLAG ??UNITS ?REF RANGE ??LAB ?? Clinician Provided Cytology Information ?? Source.............Endocervix ?? No. of containers..01 ThinPrep Vial Age Algo ACOG Luisa... ??30-65 ? 01 ?FLAG LEGEND: ?L-Low Normal,H-High Normal,LL-Alert Low,HH-Alert High <-Panic Low,>-Panic High,A-Abnormal,AA-Critical Abnormal Performed at: 01 =G ?[facility] ?? [address] ??[phone] ?? Flores Rodgers MD, IGP, APTIMA HPV, RFX 16/18,45Note.TBHComment: ?? TESTS ? RESULT ??FLAG ??UNITS ?REF RANGE ??LAB DIAGNOSIS: ?02 ?? NEGATIVE FOR INTRAEPITHELIAL LESION OR MALIGNANCY. Specimen adequacy: ?02 ?? Satisfactory for evaluation. No endocervical component is identified. Performed by: ? 02 ?? Jorge Whittington, Assistant Teacher (ASCP) . ? 02 Note: ? Note ?02 ?? The Pap smear is a screening test designed to aid in the ?? detection of premalignant and malignant conditions of the ?? uterine cervix. ??It is not a diagnostic procedure and ?? should not be used as the sole means of detecting cervical ?? cancer. ??Both false-positive and false-negative reports do ?? occur. Test Methodology: ? Note ?02 ?? This liquid based ThinPrep(R) pap test was screened with ?? the use of an image guided system. HPV Genotype Reflex ?? Note ?02 ?? Criteria not met, HPV Genotype not performed. ?FLAG LEGEND: ?L-Low Normal,H-High Normal,LL-Alert Low,HH-Alert High <-Panic Low,>-Panic High,A-Abnormal,AA-Critical Abnormal Performed at: 02 WB ?[facility] ?? [address] [place] [address] ??[phone] ?? Flores Rodgers MD, HPV APTIMANegativeNegativeTBHComment: This nucleic acid amplification test detects fourteen high- risk HPV types (16,18,31,33,35,39,45,51,52,56,58,59,66,68) without differentiation. Performed at: ??=G - [facility] ??[id number] Unit [employer]: Flores Rodgers MD, Phone: ??[phone] Performed at: ??WB - [facility] ??[id number] Unit Manager [employer]: Flores Rodgers MD, Phone: ??[phone] Specimen (Source)Anatomical Location / LateralityCollection Method / Volume Collection TimeReceived Time06/10/2025 9:06 AM EDT1 8:57 PM EDT Narrative [facility] - 06/17/2025 3:09 PM EDT [facility] ENDOCERVIX Authorizing ProviderResult TypeResult StatusGeneric External Data ProviderLAB BLOOD ORDERABLESFinal ResultPerforming OrganizationAddressCity/State/ZIP Code Phone Number [facility] documented in this encounter Visit Diagnoses Not on filedocumented in this encounter Additional Health Concerns Active ProblemsNoted DateDiagnosed DatePatient on antidepressant monitoring plan 4Baseline PHQ-904documented as of this encounter Care Teams Team MemberRelationshipSpecialtyStart DateEnd Date Riddhi Plata MD [address] [place] [address] PCP - GeneralFamily Medicine01/16/23documented as of this encounter
--- OUTSIDE RECORDS SUMMARY | 2025-07-01 08:59 | XMS_ITS | Clinical Summary ---
Author Organization [employer] tem Address [id number] [address] [place] [address] Care Team Providers Care Sales Advisor Name Role Phone Riddhi Plata MD Primary Care Provider [phone] Allergies Active AllergyReactionsCriticalityNoted DateCommentsSumatriptanAnaphylaxis,Other (See Comments)High11/28/2018 IMITREX FOR MIGRAINES Medications MedicationSigDispense QuantityRefillsLast FilledStart DateEnd DateStatus albuterol (PROVENTIL HFA;VENTOLIN HFA) 90 mcg/actuation inhaler Indications:Mild intermittent asthma, unspecified whether complicatedInhale 2 puffs every 4 (four) hours as needed for wheezing. 18 g 2Active Additional Information Patient not taking.Reported on 06/23/2025 citalopram (CeleXA) 20 mg tablet Indications:anxiety with depressionTake 1 tablet (20 mg total) by mouth nightly Indications: anxiousness associated with depression.Active cyanocobalamin (VITAMIN B-12) 1,000 mcg/mL injection Indications:History of Arlene-en-Y gastric bypass,Postsurgical malabsorption, Malnutrition following gastrointestinal surgery,B12 deficiencyInject 1 mL (1,000 mcg total) into the appropriate muscle every 30 (thirty) days. 3 mL 5Active Additional Information Patient not taking.Reported on 06/23/2025 syringe with needle (BD LUER-KARENA SYRINGE) 3 mL 25 x 1 1/2 syringe Indications:History of Arlene-en-Y gastric bypass,Postsurgical malabsorption, Malnutrition following gastrointestinal surgery,B12 deficiency1 SYRG by miscellaneous route every 30 (thirty) days. 3 each 5Active omeprazole (PriLOSEC OTC) 20 mg EC tablet Take 1 tablet (20 mg total) by mouth in the morning.Active 115/iron/folic acid ( 19 ORAL) Take by mouth.Active labetaloL (NORMODYNE) 200 mg tablet Take 1 tablet (200 mg total) by mouth 3 (three) times a day.Active busPIRone (BUSPAR) 15 mg tablet Take 1 tablet (15 mg total) by mouth 2 (two) times a day as needed.Active sennosides-docusate sodium (SENOKOT-S) 8.6-50 mg Take 1 tablet by mouth in the morning. 30 tablet 605Active aspirin 81 mg Indications:20 weeks gestation of ,Chronic hypertension affecting pregnancyTake 1 tablet (81 mg total) by mouth in the morning. 30 tablet 605Active blood sugar diagnostic strip Indications:20 weeks gestation of ,History of gestational diabetes in prior , currently Check fingersticks 4 times daily, fasting and 1 hour after the start of a meal 100 strip 5Active enoxaparin (LOVENOX) 40 mg/0.4 mL syringe Indications:20 weeks gestation of ,History of maternal pulmonary embolusInject 0.4 mL (40 mg total) under the skin in the morning and at bedtime. 12 mL 1105Active cholecalciferol 1,000 units tablet Indications:Vitamin D deficiencyTake 1 tablet (1,000 Units total) by mouth in the morning for 30 days. 30 tablet 309/2107265Active ferrous sulfate 325 (65 FE) MG tablet Indications:History of Arlene-en-Y gastric bypass,Postsurgical malabsorption, Malnutrition following gastrointestinal surgery,Iron deficiencyTake 1 tablet (325 mg total) by mouth in the morning. 90 tablet 5Active folic acid (FOLVITE) 400 MCG tablet Take 1 tablet (400 mcg total) by mouth in the morning. 30 tablet 5Active acetaminophen (TYLENOL EXTRA STRENGTH) 500 mg tablet Indications:painTake 3 tablets (1,500 mg total) by mouth every 8 (eight) hours as needed for pain Indications: pain.Active folic acid (FOLVITE) 1 mg tablet Indications:History of Arlene-en-Y gastric bypass,Postsurgical malabsorption, Malnutrition following gastrointestinal surgery,Folate deficiencyTake 1 tablet (1 mg total) by mouth in the morning. 90 tablet Discontinued ferrous sulfate 325 (65 FE) MG tablet Indications:History of Arlene-en-Y gastric bypass,Postsurgical malabsorption, Malnutrition following gastrointestinal surgery,Iron deficiencyTake 1 tablet (325 mg total) by mouth in the morning. 90 tablet Discontinued(Reorder) Active Problems ProblemNoted DateDiagnosed DateH/O gastric jzftpp7312/30/2024Postsurgical dnlfbkiwqcvhx24/22/2025Malnutrition following gastrointestinal ycnhouf8312/30/2024 Class 3 severe obesity with body mass index (BMI) of 60.0 to 69.9 in adult 04/23/2024OSA on CPAP02/22/2023History of pulmonary doehfszj53/08/2022Family history of oksqgconlb93/08/4743Bduvlb77/01/2019Estimated Date of CwsobgowRhpxgeowXwd57/06/2026ased on last menstrual period of 01/09/2025 Resolved Problems ProblemNoted DateDiagnosed DateResolved DatePneumonia due to infectious organism, unspecified laterality, unspecified part of lung Gestational emxmeuvl68reeclampsia, mawhpe91 Encounters DateTypeDepartmentCare TuqkSlkqjscpixd03/16/2025Orders Only Maternal- Medicine at [facility] [address] [place] [address] Winter Gibbons LPN History of gestational diabetes in prior , currently in second trimester (PrimaryDx); History of prediabetes; History of gestational diabetes in prior , currently raisxfch39/14/2025 4:05 AM EDT - 06/23/2025 9:28 AM [facility]TE[facility] [place] [facility] [address] [place] [phone] Spencer Melendez DO Kovach, Corie L, MD Abdominal pain of multiple sites (Primary Dx) Discharge Disposition: Home06/23/20258147Xobdsg40/13/2025Telephone Maternal- Medicine at [facility] [address] [place] [phone] Winter Gibbons LPN 06/17/2025 10:39 AM EDT - 06/17/2025 12:10 PM EDTEmerKing[facility] [place] [facility] [address] [place] [address] Jaswinder Melvin MD Symptomatic cholelithiasis (Primary Dx) Discharge Disposition: Home06/17/20257376Boxapd02/08/2025Telephone Maternal- Medicine at [facility] [address] [place] [phone] Winter Gibbons LPN 06/16/2025Refill [facility] General Surgery-Bariatric [address] [place] [address] [address] [place] [phone] Moriah Lira PA-C History of Arlene-en-Y gastric bypass; Postsurgical malabsorption; Malnutrition following gastrointestinal surgery; B12 nqujjxczno34/29/2025Orders Only Maternal- Medicine at [facility] [address] [place] [phone] Ester Marie MD History of Arlene-en-Y gastric bypass; Postsurgical malabsorption; Malnutrition following gastrointestinal surgery; Folate deficiency; Iron epjuesxecd34/22/2025Results Follow-Up Maternal- Medicine at [facility] [address] [place] [phone] Ester Marie MD B-type natriuretic peptide, CBC without diff, Comprehensive metabolic panel, Additional followed-upresults: 11:00 AM EDTOffice Visit Maternal- Medicine at [facility] [address] [place] [phone] Ester Marie MD History of maternal pulmonary embolus (Primary Dx); 20 weeks gestation of ; Chronic hypertension affecting ; History of pre-eclampsia in prior , currently in second trimester; History of gestational diabetes in prior , currently in second trimester; History of prediabetes; Bariatric surgery status complicating , second trimester; Severe obesity due to excess calories affecting , antepartum ([facility]); Obstructive sleep apnea; History of gestational diabetes in prior , currently ; Depression affecting ; Anxiety disorder affecting , zmbrwihewn31/19/2025 9:30 AM EDT - 05/29/2025 11:59 PM EDTHospital Encounter [facility] US Imaging [address] [place] [phone] Screening, , for anatomic survey Discharge Disposition: Home05/29/2025Orders Only Maternal- Medicine at [address] [phone] Winter Gibbons LPN 20 weeks gestation of (Primary Dx); Chronic hypertension affecting ; History of pre-eclampsia in prior , currently in second trimester; History of gestational diabetes in prior , currently in second trimester; History of prediabetes; Bariatric surgery status complicating , second trimester; Severe obesity due to excess calories affecting , antepartum ([facility]); History of maternal pulmonary embolus; Obstructive sleep apnea; History of gestational diabetes in prior , currently ; Depression affecting ; Anxiety disorder affecting , hithgsltcy82/19/7258Scqvaz19/18/2025Orders Only Maternal- Medicine at [address] [phone] Ref Prov, Not In System 05/28/2025bstract Maternal- Medicine at [address] [place] [address] Ester Marie MD 05/26/2025[facility] [address] [place] [phone] Moriah Lira PA-C History of Arlene-en-Y gastric bypass; Postsurgical malabsorption; Malnutrition following gastrointestinal surgery; B12 utuysmfvsl88/11/2025Refill [facility] [address] [place] [phone] Moriah Lira PA-C History of Arlene-en-Y gastric bypass; Postsurgical malabsorption; Malnutrition following gastrointestinal surgery; B12 vaxkxjbfuo54/17/2025[facility] [address] [place] [phone] Moriah Lira PA-C History of Arlene-en-Y gastric bypass; Postsurgical malabsorption; Malnutrition following gastrointestinal surgery; B12 deficiencyfrom Last 3 Months Immunizations No known immunizations Family History Medical HistoryRelationNameCommentsArthritisFatherSeanCOPDFatherSeanClotting disorderFatherSeanDepressionFatherSeanDiabetesFatherSeanHypertensionFatherSean Mental illnessFatherSeanBirth defectsMaternal GrandfatherBreast cancerMaternal GrandmotherBettyCancerMaternal GrandmotherBettyDiabetesMaternal GrandmotherBetty Ovarian cancerMaternal GrandmotherBettyAnemiaMotherTerriAutoimmune diseaseMother Territhyroid diseaseDiabetesMotherTerriHypertensionMotherTerriBirth defects Paternal GrandfatherTimDiabetesPaternal GrandfatherTimAsthmaPaternal Grandmother JeanAutoimmune diseasePaternal GrandmotherJeanlupusBreast cancerPaternal GrandmotherJeanCancerPaternal GrandmotherJeanDiabetesPaternal GrandmotherJean Anesthesia problemsNeg HxAutismNeg HxBleeding DisorderNeg HxDevelopmental delay Neg HxDown syndromeNeg HxHeart defectNeg HxSudden deathNeg HxRelationNameStatus CommentsFatherSeanAliveMaternal GrandfatherMaternal GrandmotherBettyMotherTerri AlivePaternal GrandfatherTimPaternal GrandmotherJean Social History Tobacco UseTypesPacks/DayYears UsedDateSmoking Tobacco: NeverSmokeless Tobacco: Never Tobacco Cessation:Counseling Given: Not Answered Alcohol UseStandard Drinks/WeekCommentsNot Currently0 (1 standard drink = 0.6 oz pure alcohol)[facility] UtilitiesAnswerDate RecordedIn the past 12 months has the [employer], gas, oil, or water [employer] threatened to shut off services in your home?No06/23/2025UDIT-CAnswerDate RecordedQ1: How often do you have a drink containing alcohol?Never04/23/2024Q2: How many drinks containing alcohol do you have on a typical day when you are drinking?Patient does not drink04/23/2024Q3: How often do you have six or more drinks on one occasion?Never04/23/2024Overall Financial Resource Strain (CARDIA)AnswerDate RecordedHow hard is it for you to pay for the very basics like food, housing, medical care, and heating?Not hard at all06/23/2025PHQ-2AnswerDate RecordedTotal Vuutw395RAPARE - TransportationAnswerDate RecordedIn the past 12 months, [...] part of a household?No06/23/2025hildcareAnswerDate RecordedDo problems getting child care associate make it difficult for you to work or study?No06/23/2025 EmploymentAnswerDate GvixumxhIgkqvsavphXnwxnxs53/06/2019Hunger ScreeningAnswer Date RecordedWithin the past 12 months we worried whether our food would run out before we got money to buy more.Never True06/23/2025Within the past 12 months the food we bought just didn't last and we didn't have money to get more.Never True06/23/2025Purpose - LifeAnswerDate RecordedPurpose and direction in life Mosdxte79/27/2021Estimated Date of CqkexnpsHunjujsqPda93/06/2026Based on last menstrual period of 01/09/2025Sex and Gender InformationValueDate RecordedSex Assigned at ScggxUleppa83/20/2022 9:31 PM ESTLegal EcnRwyetg41/06/2015 11:49 AM EDTGender QgcogydgYdudef75/20/2022 9:31 PM ESTSexual OrientationStraight 07/30/2022 9:31 PM EST Last Filed Vital Signs Vital SignReadingTime TakenCommentsBlood Krsufpje19/561 7:07 AM EDT Fvuaz941106/23/2025 7:07 AM KIUFujqxtvwvbj95.8 ??C (98.2 ??F)06/23/2025 7:07 AM EDTRespiratory Qfro1597 7:07 AM EDTOxygen Egpmhezzhz49%06/23/2025 5:39 AM EDTInhaled Oxygen Concentration--Dxulwi461.3 kg (230 lb)06/23/2025 4:11 AM SEUWphlfn048.9 cm (5' 1 )06/23/2025 4:11 AM EDTBody Mass Index43.4606/23/2025 4:11 AM EDT Plan of Treatment DateTypeDepartmentCare Team (Latest Contact Info)Moixglsbztn85/30/2025 9:45 AM EDTAppointment [facility] Imaging [address] [place] [phone] 07/09/2025 11:30 AM EDTOffice Visit Maternal- Medicine at [facility] [address] [place] [phone] Sana Lima MD [address], [place] [phone] Health MaintenanceDue DateLast DoneCommentsDTaP,Tdap and Td Vaccines (7 - Td or Tdap), 01/14/1999, 10/23/1996, Additional history exists Depression Htmyrhgjb10dult BMI Follow Up Plan05/01/2025 05/01/2024Influenza Eogoqwh31/10/2018, 07/11/2011dult BMI Screening Tobacco Vrnochcto63Pap Smear06/10/2028 06/10/2025 Goals GoalPatient Goal TypeAssociated ProblemsRecent ProgressPatient-Stated?Author safe discharge to home Kate Malave RN Note: Evaluation of progress towards goal: safe transition from hospital to home with family support. Medical Devices Not on file Procedures Procedure NamePriorityDate/TimeAssociated DiagnosisCommentsCT CTA CHESTSTAT 06/23/2025 8:40 AM EDT WDHWMYWCMYPRHM66/14/2025 5:20 AM EDT NQEEDRBHTN08/14/2025 4:21 AM EDT COMPREHENSIVE METABOLIC UURBXCATR16/14/2025 4:21 AM EDT CBC WITH AUTO PUIKNUYWCMZEGQJU21/14/2025 4:21 AM EDT US ABDOMEN RHNVPDWN76/08/2025 11:31 AM EDT ER EXTRA QKYSZVGHF75/08/2025 11:24 AM EDT POCT NURSING URINE MACROSCOPIC NMGuipnxx42/08/2025 11:09 AM EDT EXTRA TUBES BLUE CNZLgpcuwu81/08/2025 11:04 AM EDT EXTRA BCEJEPabwxaj61/08/2025 11:04 AM EDT COMPREHENSIVE METABOLIC HRCYWSEZQ82/08/2025 11:04 AM EDT KBCAQGVDXJ85/08/2025 11:04 AM EDT CBC WITH AUTO BKRMBCZJHXINQZQC40/08/2025 11:04 AM EDT ANTI THROMBIN 3 KNYIOChhhblg23/19/2025 1:48 PM EDT 20 weeks gestation of History of maternal pulmonary embolus PROTEIN C SGJTUEGGPlmbuzd23/19/2025 1:48 PM EDT 20 weeks gestation of History of maternal pulmonary embolus PROTEIN S GQMMEEJCFkuhidu01/19/2025 1:48 PM EDT 20 weeks gestation of History of maternal pulmonary embolus IRON AND OAPLFvbnshy36/19/2025 1:48 PM EDT 20 weeks gestation of Bariatric surgery status complicating , second trimester EKUAGOYKPuszntu63/19/2025 1:48 PM EDT 20 weeks gestation of Bariatric surgery status complicating , second trimester GQHBGLMgwewdj74/19/2025 1:48 PM EDT 20 weeks gestation of Bariatric surgery status complicating , second trimester ZINC, GIFBSQthekin09/19/2025 1:48 PM EDT 20 weeks gestation of Bariatric surgery status complicating , second trimester VITAMIN D 25 NVHLZQGWoexwew21/19/2025 1:48 PM EDT 20 weeks gestation of Bariatric surgery status complicating , second trimester VITAMIN C12Npypgfr43/19/2025 1:48 PM EDT 20 weeks gestation of Bariatric surgery status complicating , second trimester THIAMIN (VITAMIN B1), BTXchvzgv96/19/2025 1:48 PM EDT 20 weeks gestation of Bariatric surgery status complicating , second trimester XHAOjgbcaj10/19/2025 1:48 PM EDT 20 weeks gestation of Chronic hypertension affecting URIC QWARHqnneqj90/19/2025 1:48 PM EDT 20 weeks gestation of Chronic hypertension affecting PROTEIN CREAT ORHFMSvhxejj16/19/2025 1:48 PM EDT 20 weeks gestation of Chronic hypertension affecting COMPREHENSIVE METABOLIC HBHRAJgthgbl03/19/2025 1:48 PM EDT 20 weeks gestation of Chronic hypertension affecting CBC (NO DIFF)Aqamftk2605/29/2025 1:48 PM EDT 20 weeks gestation of Chronic hypertension affecting B-TYPE NATRIURETIC GPPXLYWDmwixny83/19/2025 1:48 PM EDT 20 weeks gestation of Chronic hypertension affecting US MFM COMPREHENSIVE ANATOMIC RCGTZIHnuycij05/19/2025 12:07 PM EDT Screening, , for anatomic survey US PREG LMTD 1 OR MORE RYHMZKbjdcpl82/18/2025 11:41 AM EDTUNLISTED LAB TEST Vbvqwyu9905/28/2025 11:15 AM EDTfrom Last 3 Months Results * CT angiogram chest (06/23/2025 8:40 [...] 06/23/2025 8:49 AM Authorizing ProviderResult TypeResult StatusCoribridget VEGA CT ORDERABLES Final Result * Urinalysis (06/23/2025 5:20 AM EDT)ComponentValueRef RangeTest MethodAnalysis TimePerformed AtPathologist GxrmtlyfcCGYXCXumzmhJttwpg20/14/2025 6:36 AM EDT [facility]ITALTURBIDITYClearClear06/23/2025 6:36 AM EDT [facility]ITALPECIFIC GRAVITY1.0201.003 - 1.035 06/23/2025 6:36 AM EDTPUNIVERSITY HOSPITALS HEALTH SYSTEMNITRITENegative Yebzvenl49/14/2025 6:36 AM EDOH[facility]HE[facility]FIELD [facility]OSPITALPH,URINE6.0 5.0 - 8.510 6:36 AM EDOHIOHEALTH MANSFIELD HOSPITALLEUKOCYTE PFHQVFZTKnxcfxhnYvwydybi10/14/2025 6:36 AM [facility]ENTERPROTEINNegativeNegative06/23/2025 6:36 AM EDTPUNIVERSITY HOSPITALS HEALTH SYSTEMKETONES (URINE)FjosbgpsGlxeoaxy49/14/2025 6:36 AM EDT [facility]ITALUROBILINOGEN1.0 eu/dL0.2 eu/dL, 1.0 eu/dL 06/23/2025 6:36 AM EDOHIOHEALTH MANSFIELD HOSPITALBILIRUBIN (URINE) WwcwtjxkJjorivij52/14/2025 6:36 AM [facility] BLOOD/AOIMwbxrxmeNjdwisal47/14/2025 6:36 AM [facility] CENTERGLUCOSE (URINE)NegativeNegative, 250 mg/dL06/23/2025 6:36 AM EDT [facility]ITALpecimen (Source)Anatomical Location / LateralityCollection Method / VolumeCollection TimeReceived TimeUrineUrine specimen collection, clean catch / Ncvkvfb3506/23/2025 5:20 AM EDT1 6:32 AM EDT Narrative Authorizing ProviderResult TypeResult StatusCojyoti UNGER ORDERABLES Final ResultPerforming OrganizationAddressCity/State/ZIP CodePhone Number [facility] [address] [place] [address], [place] * (ABNORMAL) CBC auto differential (06/23/2025 4:21 AM EDT) Only the most recent of2 resultswithin the time period is included. ComponentValueRef RangeTest MethodAnalysis TimePerformed AtPathologist Signature WBC9.74 - 11 x10E9/L1 4:49 AM EDTPUNIVERSITY HOSPITALS HEALTH SYSTEMRBC Count3.38(L)3.8 - 5.2 X10E12/L1 4:49 AM EDTPUNIVERSITY HOSPITALS HEALTH SYSTEMHemoglobin10.6(L)11.7 - 15.5 g/dL06/23/2025 4:49 AM EDTPUNIVERSITY HOSPITALS HEALTH SYSTEMHematocrit29.9(L)35 - 47 %06/23/2025 4:49 AM EDOHIOHEALTH MANSFIELD HOSPITALMCV8880 - 100 fL06/23/2025 4:49 AM EDTPUNIVERSITY HOSPITALS HEALTH SYSTEMMCH31.327 - 34 pg06/23/2025 4:49 AM EDTPUNIVERSITY HOSPITALS HEALTH SYSTEMMCHC35.332 - 36 g/dL06/23/2025 4:49 AM EDTPUNIVERSITY HOSPITALS HEALTH SYSTEMRDW13.011.5 - 15 %06/23/2025 4:49 AM EDOHIOHEALTH MANSFIELD HOSPITALPlatelet Vsdhd352322 - 450 X10E9/L1 4:49 AM EDT [facility]ITALMPV7.87 - 12 fL06/23/2025 4:49 AM EDT [facility]ITALNeutrophils %69.6%06/23/2025 4:49 AM EDT [facility]ITALLymphocytes %24.9%06/23/2025 4:49 AM EDT [facility] HOSPITALMonocytes %4.0%06/23/2025 4:49 AM EDT [facility]ITALEosinophils %1.1%06/23/2025 4:49 AM EDT [facility]ITALBasophils %0.4%06/23/2025 4:49 AM EDT [facility]OSPITALNeutrophils Absolute (A)6.8(H)1.5 - 6.6 10*3/uL06/23/2025 4:49 AM [facility] CENTERLymphocytes Absolute2.41.0 - 3.5 10*3/uL06/23/2025 4:49 AM EDOHIOHEALTH MANSFIELD HOSPITALMonocytes Absolute0.40.0 - 0.9 10*3/uL06/23/2025 4:49 AM [facility] CENTEREosinophils Absolute0.10.0 - 0.4 10*3/uL06/23/2025 4:49 AM [facility] CENTERBasophils Absolute0.00.0 - 0.2 10*3/uL 06/23/2025 4:49 AM [facility] CENTERDifferential Type AUTOMATED ZRECIGQGGUOM05/14/2025 4:49 AM [facility] Specimen (Source)Anatomical Location / LateralityCollection Method / Volume Collection TimeReceived TimeBloodVenous blood / UnknownVenipuncture / Unknown 06/23/2025 4:21 AM EDT1 4:44 AM EDT Narrative Authorizing ProviderResult TypeResult StatusJesse Lou Melendez [facility] BLOOD ORDERABLES Final ResultPerforming OrganizationAddressCity/State/ZIP CodePhone Number [facility] [address] [place] [address], * Lipase (06/23/2025 4:21 AM EDT) Only the most recent of2 resultswithin the time period is included. ComponentValueRef RangeTest MethodAnalysis TimePerformed AtPathologist Signature CZNJWZ2711 - 40 U/L1 5:02 AM [facility] Specimen (Source)Anatomical Location / LateralityCollection Method / Volume Collection TimeReceived TimeBloodVenous blood / UnknownVenipuncture / Unknown 06/23/2025 4:21 AM EDT1 4:44 AM EDT Narrative Authorizing ProviderResult TypeResult StatusJessbridget TRIPP BLOOD ORDERABLES Final ResultPerforming OrganizationAddressCity/State/ZIP CodePhone Number [facility] [address] [place] [address], * (ABNORMAL) Comprehensive metabolic panel (06/23/2025 4:21 AM EDT) Only the most recent of3 resultswithin the time period is included. ComponentValueRef RangeTest MethodAnalysis TimePerformed AtPathologist Signature FNTVVR813792 - 146 mmol/L1 5:05 AM [facility] CENTERPOTASSIUM3.93.5 - 5.0 mmol/L1 5:05 AM [facility] CENTERCHLORIDE10898 - 109 mmol/L1 5:05 AM [facility] CENTERCARBON WBMCLHY55(L)22 - 32 mmol/L1 5:05 AM EDT [facility]ITALANION GAP85 - 15 mmol/L1 5:05 AM EDT [facility]OSPITALBLOOD UREA EJVWZMQP36 - 23 mg/dL06/23/2025 5:05 AM [facility] CENTERCREATININE0.440.40 - 1.00 mg/dL 06/23/2025 5:05 AM [facility] CENTERComment:METHOD TRACEABLE TO IDMS XBHLMKCMLEEMRKT4857 - 99 mg/dL06/23/2025 5:05 AM [facility] CENTERCALCIUM8.78.5 - 10.5 mg/dL06/23/2025 5:05 AM EDT [facility]ITALTOTAL PROTEIN6.36.0 - 8.0 g/dL06/23/2025 5:05 AM [facility] CENTERALBUMIN3.1(L)3.2 - 5.3 g/dL06/23/2025 5:05 AM [facility] CENTERALKALINE PBGWYGWXSLH9793 - 130 U/L 06/23/2025 5:05 AM [facility]ENTERAST11<=41 U/L1 5:05 AM [facility]ENTERALT16<=31 U/L1 5:05 AM [facility] CENTERBILIRUBIN,TOTAL0.50.3 - 1.2 mg/dL 06/23/2025 5:05 AM [facility] CENTEREGFR Non-Race Dependent >90>=60 ml/min/1.73sq.m1 5:05 AM [facility] Comment: eGFR not reported due to non-numeric value for Creatinine. Reported eGFR is based on the CKD-EPI 2020 equation that does not use a race coefficient. Specimen (Source)Anatomical Location / LateralityCollection Method / Volume Collection TimeReceived TimeBloodVenous blood / UnknownVenipuncture / Unknown 06/23/2025 4:21 AM EDT1 4:44 AM EDT Narrative Authorizing ProviderResult TypeResult StatusJesse Lou Melendez [facility] BLOOD ORDERABLES Final ResultPerforming OrganizationAddressCity/State/ZIP CodePhone Number [facility] [address] [place] [address], [place] * Ultrasound abdomen limited (06/17/2025 11:31 AM [...] AtPathologist SignatureExtra TubeAuto Resulted 06/17/2025 1:01 PM EDTPROMEDSIERRA VISTA REGIONAL MEDICAL CENTERpecimen (Source) Anatomical Location / LateralityCollection Method / VolumeCollection Time Received TimeUrineUrine / UnknownCollection / Hyxmhqx3506/17/2025 11:24 AM EDT 06/17/2025 11:24 AM EDT Narrative Authorizing ProviderResult TypeResult StatusJaswinder Melvin MDURINE ORDERABLES Final ResultPerforming OrganizationAddressCity/State/ZIP CodePhone Number [facility] [address] [place] [address], [place] * POCT Nursing Urine Macroscopic UA (06/17/2025 11:09 AM EDT)ComponentValueRef RangeTest MethodAnalysis TimePerformed AtPathologist SignaturePOC Urine Specific Gravity1.0251.010, 1.015, 1.020, 1.7988806/17/2025 11:10 AM EDT [facility] Urine Leukocyte EsteraseNegative Bxmxmqyv19/08/2025 11:10 AM [facility] Urine QzibyzsZnpgchmlWfcagyll66/08/2025 11:10 AM [facility] Urine pH6.55.0, 6.0, 6.5, 7.0, 7.5, 8.0, 8.5, 5.510 11:10 AM [facility] Urine ProteinNegativeNegative 06/17/2025 11:10 AM [facility] Urine Glucose WvqinnpoRzxkwdkc89/08/2025 11:10 AM [facility] Urine VjqbccgVvsgtusqBzruptqw61/08/2025 11:10 AM [facility] Urine Urobilinogen2.0 E.U./dL06/17/2025 11:10 AM [facility] Urine BcphgjpfeXvgrywhkRxoxuikm53/08/2025 11:10 AM [facility] Urine Blood/HGBNegativeNegative 06/17/2025 11:10 AM [facility] (Source) Anatomical Location / LateralityCollection Method / VolumeCollection Time Received GmldJtxlf08/08/2025 11:09 AM EDT1 11:10 AM EDT Narrative Authorizing ProviderResult TypeResult StatusJaswinder Melvin MDPOINT OF CARE TEST ORDERABLESFinal ResultPerforming OrganizationAddressCity/State/ZIP CodePhone Number [facility] [address] [place] [address], * Light Blue Top (06/17/2025 11:04 AM EDT)ComponentValueRef RangeTest Method Analysis TimePerformed AtPathologist SignatureExtra TubeAuto Resulted 06/17/2025 1:01 PM EDTPROM[facility]ITALSpecimen (Source) Anatomical Location / LateralityCollection Method / VolumeCollection Time Received TimeBloodVenous blood / Znedexg1506/17/2025 11:04 AM EDT1 11:12 AM EDT Narrative Authorizing ProviderResult TypeResult StatusJaswinder Melvin MDLAB BLOOD ORDERABLES Final ResultPerforming OrganizationAddressCity/State/ZIP CodePhone Number [facility] [address] [facility] [place] [address], [place] * Thiamin (Vitamin B1), WB (05/29/2025 1:48 PM EDT)ComponentValueRef RangeTest MethodAnalysis TimePerformed AtPathologist SignatureTHIAMIN (VITAMIN B1), [place] [address] - 180 nmol/L06/02/2025 2:[address] [facility] LABORATORIESComment: ADDITIONAL INFORMATION This test was developed and its performance characteristics determined by [facility] in a manner consistent with CLIA requirements. This test has not been cleared or approved by the U.S. Food and Drug Administration. Test Performed by: [facility] [address] [place] [address] Adoption Manager: Jayce Daniels Ph.D.; CLIA# [id number] Specimen (Source)Anatomical Location / LateralityCollection Method / Volume Collection TimeReceived TimeBloodVenous blood / UnknownVenipuncture / Unknown 05/29/2025 1:48 PM EDT05/29/2025 1:48 PM EDT Narrative Authorizing ProviderResult TypeResult StatusEster Marie GALAB BLOOD ORDERABLES Final ResultPerforming OrganizationAddressty/State/ZIP CodePhone Number [facility] [address] [place] [address], [place] * Zinc, Serum (05/29/2025 1:48 PM EDT)ComponentValueRef RangeTest MethodAnalysis TimePerformed AtPathologist SignatureZINC, S6260 - 106 mcg/dL05/30/2025 2:[address] [facility] LABORATORIESComment: ADDITIONAL INFORMATION This test was developed and its performance characteristics determined by [facility] in a manner consistent with CLIA requirements. This test has not been cleared or approved by the U.S. Food and Drug Administration. Test Performed by: [facility] [address] [place] [address] Adoption Manager: Jayce Daniels Ph.D.; CLIA# [id number] Specimen (Source)Anatomical Location / LateralityCollection Method / Volume Collection TimeReceived TimeBloodVenous blood / UnknownVenipuncture / Unknown 05/29/2025 1:48 PM EDT05/29/2025 1:48 PM EDT Narrative Authorizing ProviderResult TypeResult Lara GILBERT BLOOD ORDERABLES Final ResultPerforming OrganizationAddressCity/State/ZIP CodePhone Number [facility] [address] [place] [address], * Protein creat ratio (05/29/2025 1:48 PM EDT)ComponentValueRef RangeTest Method Analysis TimePerformed AtPathologist SignatureURINE PROTEIN, RANDOM (MG/L)110 <120 mg/L05/29/2025 3:58 PM [facility] LABORATORYURINE CREATININE,SWV906.80mg/dL05/29/2025 3:58 PM [facility] LABORATORYU/PRO/MARINA DRY DOCK MANAGER RATIO CALC0.08<=0. 3:58 PM [facility] LABORATORYSpecimen (Source)Anatomical Location / LateralityCollection Method / VolumeCollection TimeReceived TimeUrineUrine specimen collection, clean catch / UnknownCollection / Oqozgze9805/29/2025 1:48 PM EDT05/29/2025 1:48 PM EDT Narrative [facility] - 05/29/2025 3:58 PM EDT Nephrotic Syndrome is associated with ratios >3.5 Authorizing ProviderResult TypeResult Lara UNGER ORDERABLESFinal ResultPerforming OrganizationAddressCity/State/ZIP CodePhone Number [facility] [address] [place] [address], * LDH (05/29/2025 1:48 PM EDT)ComponentValueRef RangeTest MethodAnalysis Time Performed AtPathologist PhyfncuznFEB997847 - 235 U/L05/29/2025 3:58 PM EDT [facility] LABORATORYSpecimen (Source)Anatomical Location / LateralityCollection Method / VolumeCollection TimeReceived TimeBloodVenous blood / UnknownVenipuncture / Nfctguz7005/29/2025 1:48 PM EDT05/29/2025 1:48 PM EDT Narrative Authorizing ProviderResult TypeResult StatusEster [facility] HealthLAB BLOOD ORDERABLES Final ResultPerforming OrganizationAddressCity/State/ZIP CodePhone Number [facility] [address] [place] [address], [place] [phone] * (ABNORMAL) Iron and TIBC (05/29/2025 1:48 PM EDT)ComponentValueRef RangeTest MethodAnalysis TimePerformed AtPathologist HdiqwbmohQETM7319 - 170 ug/dL 05/29/2025 3:58 PM [facility] ISQWKNMEZGOVNHGIYSLLU057447 - 336 mg/dL05/29/2025 3:58 PM [facility] LABORATORYIRON BINDING 465(H)250 - 425 ug/dL05/29/2025 3:58 PM [facility] IRON QKEACPFJMX2332 - 50 % ACBTQNWCUE40/19/2025 3:58 PM [facility] LABORATORYSpecimen (Source)Anatomical Location / LateralityCollection Method / VolumeCollection TimeReceived TimeBloodVenous blood / Unknown Venipuncture / Qgoesnk4105/29/2025 1:48 PM EDT05/29/2025 1:48 PM EDT Narrative Authorizing ProviderResult TypeResult Lara [facility]LAB BLOOD ORDERABLES Final ResultPerforming OrganizationAddressCity/State/ZIP CodePhone Number [facility] [address] [place] [address], [place] [phone] * (ABNORMAL) Vitamin D 25 hydroxy (05/29/2025 1:48 PM EDT)ComponentValueRef RangeTest MethodAnalysis TimePerformed AtPathologist SignatureVITAMIN D 25 HYD TOT27.1(L)30.0 - 100.0 ng/mL05/29/2025 4:18 PM [facility] LABORATORYSpecimen (Source)Anatomical Location / LateralityCollection Method / VolumeCollection TimeReceived TimeBloodVenous blood / UnknownVenipuncture / Uvavxsm4105/29/2025 1:48 PM EDT05/29/2025 1:48 PM EDT Narrative [facility] - 05/29/2025 4:18 PM EDT Vitamin D status 25 [place] Vitamin D Deficiency <20 ng/mL Insufficiency ? 20-29 ng/mL Sufficiency ? 30-100 ng/mL Toxicity >100 ng/mL NOTE: A pediatric reference range has not been established by the shingle inspector of this kit. The [place] [employer] recommends a Vitamin D level of = or >20ng/mL in infants and children. Authorizing ProviderResult TypeResult StatusE[facility] BLOOD ORDERABLES Final ResultPerforming OrganizationAddressCity/State/ZIP CodePhone Number [facility] [address] [place] [address], * (ABNORMAL) Protein S activity (05/29/2025 1:48 PM EDT)ComponentValueRef Range Test MethodAnalysis TimePerformed AtPathologist SignaturePROTEIN S QJRCXJOT63 (L)64 - 149 %06/05/2025 9:14 AM [facility] LABORATORYComment: Oral contraceptives, hormonal therapy, , acute illness,thrombosis, ??DIC, liver disease, warfarin or the presence of Factor V Leiden mutation, may lead to diminished recovery of Protein S. If Protein S activity is decreased, reflex testing for Protein S free and total antigen may be performed. Results of the test should be interpreted in conjunction with the patient's medical history, clinical presentation and other laboratory findings. Specimen (Source)Anatomical Location / LateralityCollection Method / Volume Collection TimeReceived TimeBloodVenous blood / UnknownVenipuncture / Unknown 05/29/2025 1:48 PM EDT05/29/2025 1:48 PM EDT Narrative Authorizing ProviderResult TypeResult Lara Marie MDLAB BLOOD ORDERABLES Final ResultPerforming OrganizationAddressCity/State/ZIP CodePhone Number [facility] [address] [place] [address], [place] [phone] * Protein C activity (05/29/2025 1:48 PM EDT)ComponentValueRef RangeTest Method Analysis TimePerformed AtPathologist SignaturePROTEIN C JBGWVDZF46020 - 140 % 06/05/2025 9:14 AM [facility] LABORATORYSpecimen (Source) Anatomical Location / LateralityCollection Method / VolumeCollection Time Received TimeBloodVenous blood / UnknownVenipuncture / Zssktkw6405/29/2025 1:48 PM EDT05/29/2025 1:48 PM EDT Narrative Authorizing ProviderResult TypeResult Lara [facility] BLOOD ORDERABLES Final ResultPerforming OrganizationAddressCity/State/ZIP CodePhone Number [facility] [address] [place] [address], [place] [phone] * Anti thrombin 3 funct (05/29/2025 1:48 PM EDT)ComponentValueRef RangeTest MethodAnalysis TimePerformed AtPathologist SignatureANTI THROMBIN 3 XEZSP5878 - 128 %06/05/2025 9:14 AM [facility] LABORATORYSpecimen (Source)Anatomical Location / LateralityCollection Method / VolumeCollection TimeReceived TimeBloodVenous blood / UnknownVenipuncture / Dvbkffq2605/29/2025 1:48 PM EDT05/29/2025 1:48 PM EDT Narrative Authorizing ProviderResult TypeResult [facility] CampusEster [facility] HealthLAB BLOOD ORDERABLES Final ResultPerforming OrganizationAddressCity/State/ZIP CodePhone Number [facility] [address] [place] [address], [place] [phone] * (ABNORMAL) CBC without diff (05/29/2025 1:48 PM EDT)ComponentValueRef Range Test MethodAnalysis TimePerformed AtPathologist SignatureWBC9.84 - 11 x10E9/L 05/29/2025 3:30 PM [facility] LABORATORYRBC Count3.813.8 - 5.2 X10E12/L05/29/2025 3:30 PM [facility] Xndnrzvwls21.811.7 - 15.5 g/dL05/29/2025 3:30 PM [facility] KMUYFDQRIKJdzzgcucjk67.8(L)35 - 47 %05/29/2025 3:30 PM [facility] CVDOKAXIZEVVU6839 - 100 fL05/29/2025 3:30 PM [facility] RIFLUNIXEPAWZ44.927 - 34 pg05/29/2025 3:30 PM [facility] JHZSGTXBOBOHME06.832 - 36 g/dL05/29/2025 3:30 PM [facility] JTPWAWQXGXWYF95.511.5 - 15 %05/29/2025 3:30 PM [facility] LABORATORYPlatelet Kxnwb687578 - 450 X10E9/L05/29/2025 3:30 PM EDT [facility] LABORATORYMPV8.47 - 12 MO05/29/2025 3:30 PM [facility] LABORATORYSpecimen (Source)Anatomical Location / Laterality Collection Method / VolumeCollection TimeReceived TimeBloodVenous blood / UnknownVenipuncture / Xiybvlb3205/29/2025 1:48 PM EDT05/29/2025 1:48 PM EDT Narrative Authorizing ProviderResult TypeResult StatusIra [facility] BLOOD ORDERABLES Final ResultPerforming OrganizationAddressCity/State/ZIP CodePhone Number [facility] [address] [place] [id number], * Uric acid (05/29/2025 1:48 PM EDT)ComponentValueRef RangeTest MethodAnalysis TimePerformed AtPathologist SignatureURIC ACID4.42.6 - 7.2 mg/dL05/29/2025 3:58 PM [facility] LABORATORYSpecimen (Source)Anatomical Location / LateralityCollection Method / VolumeCollection TimeReceived Time BloodVenous blood / UnknownVenipuncture / Pwakzgc5605/29/2025 1:48 PM EDT 05/29/2025 1:48 PM EDT Narrative Authorizing ProviderResult TypeResult Lara Marie MDLAB BLOOD ORDERABLES Final ResultPerforming OrganizationAddressCity/State/ZIP CodePhone Number [facility] [address] [place] [address], * B-type natriuretic peptide (05/29/2025 1:48 PM EDT)ComponentValueRef RangeTest MethodAnalysis TimePerformed AtPathologist CizdepcbzDDA51<=100 pg/mL05/29/2025 4:03 PM [facility] LABORATORYSpecimen (Source)Anatomical Location / LateralityCollection Method / VolumeCollection TimeReceived Time BloodVenous blood / UnknownVenipuncture / Cgyfpcw1005/29/2025 1:48 PM EDT 05/29/2025 1:48 PM EDT Narrative Authorizing ProviderResult TypeResult Lara [facility] BLOOD ORDERABLES Final ResultPerforming OrganizationAddressCity/State/ZIP CodePhone Number [facility] [address] [place] [address], * Folate (05/29/2025 1:48 PM EDT)ComponentValueRef RangeTest MethodAnalysis Time Performed AtPathologist SignatureFOLIC ACID13.3>5.8 ng/mL05/29/2025 4:18 PM [facility] LABORATORYSpecimen (Source)Anatomical Location / LateralityCollection Method / VolumeCollection TimeReceived TimeBloodVenous blood / UnknownVenipuncture / Qekfsrl2505/29/2025 1:48 PM EDT05/29/2025 1:48 PM EDT Narrative Authorizing ProviderResult TypeResult Lara [facility]LAB BLOOD ORDERABLES Final ResultPerforming OrganizationAddressCity/State/ZIP CodePhone Number [facility] [address] [place] [address], * Ferritin (05/29/2025 1:48 PM EDT)ComponentValueRef RangeTest MethodAnalysis TimePerformed AtPathologist DilfvhkjiAVTTONRO7994 - 307 ng/mL05/29/2025 4:12 PM [facility] LABORATORYSpecimen (Source)Anatomical Location / LateralityCollection Method / VolumeCollection TimeReceived TimeBloodVenous blood / UnknownVenipuncture / Vnlzvgr4105/29/2025 1:48 PM EDT05/29/2025 1:48 PM EDT Narrative Authorizing ProviderResult TypeResult StatusGreystone Park Psychiatric HospitalLAB BLOOD ORDERABLES Final ResultPerforming OrganizationAddressCity/State/ZIP CodePhone Number [facility] [address] [place] [address], * Vitamin B12 (05/29/2025 1:48 PM EDT)ComponentValueRef RangeTest MethodAnalysis TimePerformed AtPathologist SignatureVITAMIN [id number] - 914 pg/mL05/29/2025 4:20 PM [facility] LABORATORYSpecimen (Source)Anatomical Location / LateralityCollection Method / VolumeCollection TimeReceived Time BloodVenous blood / UnknownVenipuncture / Frqvwtr3705/29/2025 1:48 PM EDT 05/29/2025 1:48 PM EDT Narrative Authorizing ProviderResult TypeResult StatusEster [facility] HealthLAB BLOOD ORDERABLES Final ResultPerforming OrganizationAddressCity/State/ZIP CodePhone Number [facility] [address] [place] [address], * [facility] COMPREHENSIVE ANATOMIC SURVEY (05/29/2025 12:07 PM EDT)Anatomical RegionLateralityModalityOB-GYNUltrasoundSpecimen (Source)Anatomical Location / LateralityCollection Method / VolumeCollection TimeReceived Time05/29/2025 10:13 AM EDT Narrative 06/01/2025 5:47 PM EDT NAME: ??TARA PERKINS : 1995 SEX: F Accession Number: [id number] ORDERING PHYSICIAN: ESTER MARIE REFERRING PHYSICIAN: GONZALEZ PASCAL Coding Procedures ? 20630: Ultrasound, uterus, real time with image documentation, and maternal evaluation ? plus detailed anatomic examination, transabdominal approach;single or first gestation ? 67706: Ultrasound, uterus, real time with image documentation, transvaginal Indication Screening for Anatomic Survey , Screening for cervical length , Obesity in , history of gastric bypass , history of PE , History of gestational hypertension , History of prior with gestational diabetes , Supervision of high risk . History OB History ? 3. Para 2 ? Children born living ?37w 2 ? T2L2 Current Cell free DNA ?low risk analysis Maternal Assessment Physical Exam ??Height 152 cm, 5 ft. Weight 108 kg, 239 lb. Initial weight 108 kg, 239 lb. BMI 46.68 kg/m??. Initial BMI ? 46.68 kg/m?? Method Transabdominal and transvaginal ultrasound examination. View: Suboptimal view: limited by position. Wilder . Number of fetuses: 1 Dating LMP on: ?01/09/2025 GA by LMP ?20 w + 0 d SEBASTIAN by LMP: ?10/16/2025 Previous Ultrasound on: ?03/20/2025 Type of prior assessment: ?GA GA at prior assessment date ?9 w + 2 d GA by previous U/S ? 19 w + 2 d SEBASTIAN by previous Ultrasound: ?10/21/2025 Ultrasound examination on: ? 05/29/2025 GA by U/S based upon: ??AC, BPD, Femur, HC GA by U/S ?19 w + 4 d SEBASTIAN by U/S: ?10/19/2025 Assigned: ?based on the LMP, selected on 05/29/2025 Assigned GA (weeks days) ? 20 w + 0 d Assigned SEBASTIAN: ??10/16/2025 General Evaluation Cardiac activity Present. FHR 150 bpm. Presentation: cephalic Placenta: Placental site: anterior, fundal, away from cervical os Umbilical cord: Cord vessels: 3 vessel cord. Insertion site: marginal insertion Amniotic fluid: Amount of AF: normal amount. MVP 4.7 cm Biometry Standard BPD ?41.8 mm 18w 5d 7% Hadlock OFD ?59.9 mm 20w 5d 75% Natalya HC ? 164.0 mm ?19w 1d 10% Hadlock Cerebellum tr ??21.6 mm 20w 3d 86% Hill Nuchal fold ?3.4 mm AC ? 153.8 mm ?20w 4d 64% Hadlock Femur ??30.9 mm 19w 4d 27% Hadlock Humerus ?29.7 mm 19w 5d 45% Natalya HC / AC ?1.07 ? 5% Hadlock EFW ?324 g ?44% Hadlock EFW (lb) ? 0 lb EFW (oz) ? 11 oz EFW by: ?Hadlock (WEK-YJ-LD-FL) Extended Tibia ??24.7 mm 18w 5d 17% Natalya Waste Machine Operator ? 5.8 mm CM ? 4.6 mm ?? 37% Nicolaides Inner IOD ?12.4 mm Outer IOD ?29.1 mm Nasal bone ? 5.7 mm ?? 14% [place] Head / Face / Neck Cephalic index 0.70 <1% Nicolaides Nasal bone: ?present Extremities / Bony Struc FL / BPD ? 0.74 ? 84% Hadlock FL / HC ?0.19 ? 65% Hadlock FL / AC ?0.20 ? 10% Hadlock Other Structures FHR ?150 bpm Anatomy The following structures appear normal: Head/Neck: Cranium. Lateral ventricles. Choroid plexus. Midline falx. Cavum septi pellucidi. Cerebellum. Cisterna ? magna. Parenchyma. ? Neck. Nuchal fold. Face: Lips. Profile. Nose. Nasal bone. Maxilla. Mandible. Orbits. Heart/Thorax: RVOT view. LVOT view. 3-vessel view. 9-jzdknw-rcpstyb view. Situs. Aortic arch view. Bicaval view. Ductal ? arch view. Cardiac position. Cardiac axis. Cardiac size. Cardiac rhythm. ? Diaphragm. Abdomen: Abdom. wall. Cord insertion. Stomach. Kidneys. Bladder. Small bowel. Large bowel. Right renal artery. ? Left renal artery. Genitals. Extremities/Skeleton: Right upper arm. Right forearm. Right hand. Left upper arm. Left forearm. Left hand. Right upper leg. ? Right lower leg. Left upper leg. Left lower leg. The following structures could not be adequately visualized: Head / Neck ?Vermis. Heart / Thorax 4-chamber view. Interventricular septum. Great vessels. The following structures could not be examined: Heart / Thorax Right lung. Left lung. Spine: Cervical spine. Thoracic spine. Lumbar spine. Sacral spine. Extremities / ??Right foot. Left foot. Skeleton Maternal Structures Uterus Visualized Cervix Visualized ? Approach - Transvaginal: Cervical length 3.97 cm Right Ovary ?Not visualized Left Ovary ? Not visualized Cul de Sac ? Visualized. No free fluid visualized Impression Single live intrauterine consistent with 20w 0d with an SEBASTIAN of 10/16/2025. Normal growth. EFW measures at the 44%, AC measures at the 64%. Transvaginal cervical length measures 3.97 cm. Amniotic fluid MVP measures 4.7 cm. Marginal cord insertion noted. Recommendations Please see [facility] documentation from today. The patient is scheduled in four to six week(s) to complete anatomic survey. Subsequent follow up or other follow up as clinically determined by primary OB provider unless otherwise specified by [facility]. Results forwarded to ordering provider so they can follow up with the patient as necessary. Procedure Note Ester Marie MD - 06/01/2025 NAME: TARA PERKINS : 1995 SEX: F Accession Number: [id number] ORDERING PHYSICIAN: ESTER MARIE REFERRING PHYSICIAN: GONZALEZ PASCAL Coding Procedures 88900: Ultrasound, uterus, real time with image documentation, and maternal evaluation plus detailed anatomic examination, transabdominalapproach;single or first gestation 86842: Ultrasound, uterus, real time with imagedocumentation, transvaginal Indication Screening for Anatomic Survey , Screening for cervical length , Obesity in , history of gastric bypass , history of PE , History of gestational hypertension , History of priorpregnancy with gestational diabetes , Supervision of high risk . History OB History 3. Para 2 Children born living ?37w 2 T2L2 Current Cell free DNA low risk analysis Maternal Assessment Physical Exam Height 152 cm, 5 ft. Weight 108 kg, 239 lb. Initial ewdvdd770 kg, 239 lb. BMI 46.68 kg/m??. Initial BMI 46.68 kg/m?? Method Transabdominal and transvaginal ultrasound examination. View: Suboptimalview: limited by position. Wilder . Number of fetuses: 1 Dating LMP on: 01/09/2025 GA by LMP 20 [...] 0 d Assigned SEBASTIAN: 10/16/2025 General Evaluation Cardiac activity Present. FHR 150 bpm. Presentation: cephalic Placenta: Placental site: anterior, fundal, away from cervical os Umbilical cord: Cord vessels: 3 vessel cord. Insertion site: marginalinsertion Amniotic fluid: Amount of AF: normal amount. MVP 4.7 cm Biometry Standard BPD 41.8 mm 18w 5d 7% [...] EFW (oz) 11 oz EFW by: Hadlock (LMA-UN-NC-FL) Extended Tibia 24.7 mm 18w 5d 17% Natalya Waste Machine Operator 5.8 mm CM 4.6 mm 37% Nicolaides Inner IOD 12.4 mm Outer IOD 29.1 mm Nasal bone 5.7 mm 14% Quartzyek Head / Face / Neck Cephalic index 0.70 <1% Nicolaides Nasal bone: present Extremities / Bony Struc FL / BPD 0.74 84% Hadlock FL / HC 0.19 65% Hadlock FL / AC 0.20 10% Hadlock Other Structures FHR 150 bpm Anatomy The following structures appear normal: Head/Neck: Cranium. Lateral ventricles. Choroid plexus. Midline falx.Cavum septi pellucidi. Cerebellum. Cisterna magna. Parenchyma. Neck. Nuchal fold. Face: Lips. Profile. Nose. Nasal bone. Maxilla. Mandible. Orbits. Heart/Thorax: RVOT view. LVOT view. 3-vessel view. 9-yfdyow-tmwojdw view.Situs. Aortic arch view. Bicaval view. Ductal [...] Right foot. Left foot. Skeleton Maternal Structures Uterus Visualized Cervix Visualized Approach - Transvaginal: Cervical length 3.97 cm Right Ovary Not visualized Left Ovary Not visualized Cul de Sac Visualized. No free fluid visualized Impression Single live intrauterine consistent with 20w 0d with an SEBASTIAN of 10/16/2025. Normal growth. EFW measures at the 44%, AC measures at the 64%. Transvaginal cervical length measures 3.97 cm. Amniotic fluid MVP measures 4.7 cm. Marginal cord insertion noted. Recommendations Please see [facility] documentation from today. The patient is scheduled in four to six week(s) to complete anatomicsurvey. Subsequent follow up or other follow up as clinically determined byprimary OB provider unless otherwise specified by [facility]. Results forwarded to ordering provider so they can follow up with thepatient as necessary. Authorizing ProviderResult TypeResult Lara VEGA US ORDERABLES Final Result * Ultrasound limited 1 or more fetus (05/28/2025 11:41 AM EDT) Anatomical RegionLateralityModalityOB-GYNUltrasound Narrative Authorizing ProviderResult TypeResult StatusNot In System Ref ProvIMG US ORDERABLESFinal Result * Unlisted Lab Test (05/28/2025 11:15 AM EDT) Narrative Authorizing ProviderResult TypeResult StatusNot In System Ref ProvLAB BLOOD ORDERABLESFinal ResultPerforming OrganizationAddressCity/State/ZIP CodePhone Number MANUALLY TRANSCRIBED RESULTS from Last [address] [place] [address] Advance Directives * Full Code (Latest Code Status on File) Date ActivatedDate OserotfhasdLxzuqcwg71/14/2025 9:38 AM06/23/2025 11:46 AM * Full Code Date ActivatedDate InactivatedComments04/23/2024 11:06 AM04/24/2024 4:47 PM * Full Code Date ActivatedDate RopvdopgqgvMuhqjnct46/20/2022 11:42 PM07/31/2022 2:48 PM * Full Code Date ActivatedDate InactivatedComments11/24/2018 10:44 PM11/27/2018 4:48 PM Care Teams Team MemberRelationshipSpecialtyStart DateEnd Date Riddhi Plata MD PCP - GeneralFamily Medicine12/09/23
--- OUTSIDE RECORDS SUMMARY | 2025-07-01 09:00 | XMS_ITS | Encounter Summary ---
Author Organization [employer] tem Address [facility] [place]-[id number] [address] [place] [address] Care Team Providers Care Clinical Trials Specialist Name Role Phone Riddhi Plata MD Primary Care Provider [phone] Encounter Details DateTypeDepartmentCare Team (Latest Contact Info)Yhltiqglpru93/14/2025Travel Social History Tobacco UseTypesPacks/DayYears UsedDateSmoking Tobacco: NeverSmokeless Tobacco: NeverAlcohol UseStandard Drinks/WeekCommentsNot Currently0 (1 standard drink = 0.6 oz pure alcohol)socialAH UtilitiesAnswerDate RecordedIn the past 12 months has the [employer], gas, oil, or water [employer] threatened to shut off services in your [...] care, and heating?Not hard at all06/23/2025PHQ-2AnswerDate RecordedTotal Sjvah888/ PRAPARE - TransportationAnswerDate RecordedIn the past 12 [...] part of a household?No06/23/2025hildcareAnswerDate RecordedDo problems getting early childhood worker make it difficult for you to work or study?No06/23/2025 EmploymentAnswerDate DskvxjfiNqrkgyzjdrVxmhurz39/06/2019Hunger ScreeningAnswer Date RecordedWithin the past 12 months we worried whether our food would run out before we got money to buy more.Never True06/23/2025Within the past 12 months the food we bought just didn't last and we didn't have money to get more.Never True06/23/2025Purpose - LifeAnswerDate RecordedPurpose and direction in life Zyaqqfq15/27/2021Estimated Date of ScfrepkrUkchqqaoVkc89/06/2026Based on last menstrual period of 01/09/2025Sex and Gender InformationValueDate RecordedSex Assigned at QatbyIfatuw81/20/2022 9:31 PM ESTLegal HwnDlfrup21/06/2015 11:49 AM EDTGender JkmnfyewOjahrz14/20/2022 9:31 PM ESTSexual OrientationStraight 07/30/2022 9:31 PM ESTdocumented as of this encounter Plan of Treatment DateTypeDepartmentCare Team (Latest Contact Info)Frbknizgvvq24/30/2025 9:45 AM EDTAppointment [facility] US Imaging [address] [place] [phone] 07/09/2025 11:30 AM EDTOffice Visit Maternal- Medicine at [facility] [address] [place] [address] Sana Lima MD [address] [place] [address] documented as of this encounter Goals GoalPatient Goal TypeAssociated ProblemsRecent ProgressPatient-Stated?Author safe discharge to home Kate Malave RN Note: Evaluation of progress towards goal: safe transition from hospital to home with family support. documented as of this encounter Visit Diagnoses Not on filedocumented in this encounter Additional Health Concerns AssessmentNoted TimePHQ-9 Depression Total Score: 3:05 PM EDT documented as of this encounter Care Teams Team MemberRelationshipSpecialtyStart DateEnd Date Riddhi Plata MD PCP - GeneralFamily Medicine12/09/23documented as of this encounter
--- OUTSIDE RECORDS SUMMARY | 2025-07-01 09:00 | XMS_ITS | Encounter Summary ---
Author Organization [employer] tem Address [facility] [id number] [address] [place] [address] Care Team Providers Care Barrel Bridge Assembler Name Role Phone Riddhi Plata MD Primary Care Provider [phone] Encounter Details DateTypeDepartmentCare Team (Latest Contact Info)Byybihvkrxf71/08/2025Travel Social History Tobacco UseTypesPacks/DayYears UsedDateSmoking Tobacco: NeverSmokeless Tobacco: NeverAlcohol UseStandard Drinks/WeekCommentsNot Currently0 (1 standard drink = 0.6 oz pure alcohol)[facility] UtilitiesAnswerDate RecordedIn the past 12 months has the [employer], gas, oil, or water [employer] threatened to shut off services in your home?No04/23/2024UDIT-CAnswerDate RecordedQ1: How often do you have a drink containing alcohol?Never04/23/2024Q2: How many drinks containing alcohol do you have on a typical day when you are drinking?Patient does not drink 04/23/2024Q3: How often do you have six or more drinks on one occasion?Never 04/23/2024HQ-2AnswerDate RecordedTotal [id number] - Transportation AnswerDate RecordedIn the past 12 [...] in as a part of a household?No 4ChildcareAnswerDate LslpzpzuJahhsanzdQopqrpb28/06/2019EmploymentAnswer Date GqgamatgSbucxcrmsiYpjevdl47/06/2019Hunger ScreeningAnswerDate Recorded Within the past 12 months we worried whether our food would run out before we got money to buy more.Never True06/17/2025Within the past 12 months the food we bought just didn't last and we didn't have money to get more.Never True 06/17/2025Purpose - LifeAnswerDate RecordedPurpose and direction in lifeUnknown 1Estimated Date of JwtbdgibFalmhukgEtd81/06/2026Based on last menstrual period of 01/09/2025Sex and Gender InformationValueDate RecordedSex Assigned at BownoNyehly15/20/2022 9:31 PM ESTLegal EipSspfsa16/06/2015 11:49 AM EDTGender VtktpkdrLucuxv35/20/2022 9:31 PM ESTSexual OrientationStraight 07/30/2022 9:31 PM ESTdocumented as of this encounter Plan of Treatment DateTypeDepartmentCare Team (Latest Contact Info)Wxywlhvvafv69/30/2025 9:45 AM EDTAppointment [facility] US Imaging [address] [place] [phone] 07/09/2025 11:30 AM EDTOffice Visit Maternal- Medicine at [facility] [address] [place] [address] Sana Lima MD [address] [place] [address] documented as of this encounter Goals GoalPatient [...]
--- OUTSIDE RECORDS SUMMARY | 2025-07-01 09:00 | XMS_ITS | Encounter Summary ---
Author Organization [facility] tem Address [facility] [place][id number] [address] [place] [address] Care Team Providers Care Steam Hand Name Role Phone Riddhi Plata MD Primary Care Provider [phone] Encounter Details DateTypeDepartmentCare Team (Latest Contact Info)Kxqnwsqziuz72/16/2025Orders Only Maternal- Medicine at [facility] [address] [facility] [place] [phone] Winter Gibbons LPN History of gestational diabetes in prior , currently in second trimester (PrimaryDx); History of prediabetes; History of gestational diabetes in prior , currently Social History Tobacco UseTypesPacks/DayYears UsedDateSmoking Tobacco: NeverSmokeless Tobacco: NeverAlcohol UseStandard Drinks/WeekCommentsNot Currently0 (1 standard drink = 0.6 oz pure alcohol)Bree[employer] UtilitiesAnswerDate RecordedIn the past 12 months has the [employer], gas, oil, or water [email or web address] threatened to shut off services in your [...] care, and heating?Not hard at all06/23/2025PHQ-2AnswerDate RecordedTotal [id number] PRAPARE - TransportationAnswerDate RecordedIn the past 12 [...] of a household?No06/23/2025hildcareAnswerDate RecordedDo problems getting childcare center director make it difficult for you to work or study?No06/23/2025 EmploymentAnswerDate EnqozfncUqukgsccvtEeksmvx99/06/2019Hunger ScreeningAnswer Date RecordedWithin the past 12 months we worried whether our food would run out before we got money to buy more.Never True06/23/2025Within the past 12 months the food we bought just didn't last and we didn't have money to get more.Never True06/23/2025Purpose - LifeAnswerDate RecordedPurpose and direction in life Hkssxey05/27/2021Estimated Date of QowfwgofIbibqxmlRco11/06/2026Based on last menstrual period of 01/09/2025Sex and Gender InformationValueDate RecordedSex Assigned at TnhsbVytfwt40/20/2022 9:31 PM ESTLegal HbzJfhbqc31/06/2015 11:49 AM EDTGender TaxbmyexCobbvt63/20/2022 9:31 PM ESTSexual OrientationStraight 07/30/2022 9:31 PM ESTdocumented as of this encounter Plan of Treatment DateTypeDepartmentCare Team (Latest Contact Info)Ysaldkxieba64/30/2025 9:45 AM EDTAppointment [facility] US Imaging [address] [place] [address] 07/09/2025 11:30 AM EDTOffice Visit Maternal- Medicine at [facility] [address] [place] [address] Sana Lima MD [address] [place] [address] documented as of this encounter Goals GoalPatient Goal TypeAssociated ProblemsRecent ProgressPatient-Stated?Author safe discharge to home Kate Malave RN Note: Evaluation of progress towards goal: safe transition from hospital to home with family support. documented as of this encounter Visit Diagnoses Diagnosis History of gestational diabetes in prior , currently in second trimester- Primary History of prediabetes History of gestational diabetes in prior , currently with other poor obstetric history documented in this encounter Additional Health Concerns AssessmentNoted TimePHQ-9 Depression Total Score: 3:05 PM EDT documented as of this encounter Care Teams Team MemberRelationshipSpecialtyStart DateEnd Date Riddhi Plata MD PCP - GeneralFamily Medicine12/09/23documented as of this encounter
--- OUTSIDE RECORDS SUMMARY | 2025-07-01 09:00 | XMS_ITS | Encounter Summary ---
Author Organization [facility] tem Address [facility] [place]-[id number] [address] [place] [address] Care Team Providers Care Tank Truck Loader Name Role Phone Riddhi Plata MD Primary Care Provider [phone] Encounter Details DateTypeDepartmentCare Team (Latest Contact Info)Bumqcjibbkx94/08/2025Telephone Maternal- Medicine at [facility] [address] [facility] [place] [address] Winter Gibbons LPN Social History Tobacco UseTypesPacks/DayYears UsedDateSmoking Tobacco: NeverSmokeless Tobacco: NeverAlcohol UseStandard Drinks/WeekCommentsNot Currently0 (1 standard drink = 0.6 oz pure alcohol)[facility] UtilitiesAnswerDate RecordedIn the past 12 months has the [employer], gas, oil, or water [employer] threatened to shut off services in your home?No4AUDIT-CAnswerDate RecordedQ1: How often do you have a drink containing alcohol?Never04/23/2024Q2: How many drinks containing alcohol do you have on a typical day when you are drinking?Patient does not drink 04/23/2024Q3: How often do you have six or more drinks on one occasion?Never 4PHQ-2AnswerDate RecordedTotal [id number] - Transportation AnswerDate RecordedIn the past 12 [...] as a part of a household?No 04/23/2024hildcareAnswerDate KgxrfvhtTteuocubuKxhacpu63/06/2019EmploymentAnswer Date JhxsamagNrrmcsolodWvzpmfn57/06/2019Hunger ScreeningAnswerDate Recorded Within the past 12 months we worried whether our food would run out before we got money to buy more.Never True06/17/2025Within the past 12 months the food we bought just didn't last and we didn't have money to get more.Never True 06/17/2025Purpose - LifeAnswerDate RecordedPurpose and direction in lifeUnknown 1Estimated Date of FwtpzxqsIdiprrjfVjm91/06/2026Based on last menstrual period of 01/09/2025Sex and Gender InformationValueDate RecordedSex Assigned at FjloaRwrcua92/20/2022 9:31 PM ESTLegal UzdWbdtfm69/06/2015 11:49 AM EDTGender OwmczmhkEddpwq01/20/2022 9:31 PM ESTSexual OrientationStraight 07/30/2022 9:31 PM ESTdocumented as of this encounter Miscellaneous Notes * Telephone Encounter - Winter Gibbons LPN - 06/17/2025 8:59 AM EDT Spoke with patient in regards to mychart message from last evening. Patient states the SOB and under the rib pain comes and goes. Denies headache or blurry vision but is noticing some swelling. Patient states this started out of the blue. Lawn Mower Mechanic encouraged patient to be evaluated as soon as possible at the closest Emergency Room for further evaluation. Patient verbalized understanding. documented in this encounter Plan of Treatment DateTypeDepartmentCare Team (Latest Contact Info)Jyojzuoofjp70/30/2025 9:45 AM EDTAppointment [facility] US Imaging [address] [place] [address] 07/09/2025 11:30 AM EDTOffice Visit Maternal- Medicine at [facility] [address] [place] [address] Sana Lima MD [address] [place] [address] documented as of this encounter Goals GoalPatient [...]
--- OUTSIDE RECORDS SUMMARY | 2025-07-01 09:00 | XMS_ITS | Encounter Summary ---
Author Organization [facility] tem Address [facility] [place]-[id number] [address] [place] [address] Care Team Providers Care Overweaver Name Role Phone Riddhi Plata MD Primary Care Provider [phone] Encounter Details DateTypeDepartmentCare Team (Latest Contact Info)Uddmtymcmwn53/13/2025Telephone Maternal- Medicine at [facility] [address] [facility] [place] [phone] Winter Gibbons LPN Social History Tobacco UseTypesPacks/DayYears UsedDateSmoking Tobacco: NeverSmokeless Tobacco: NeverAlcohol UseStandard Drinks/WeekCommentsNot Currently0 (1 standard drink = 0.6 oz pure alcohol)[facility] UtilitiesAnswerDate RecordedIn the past 12 months has the [employer], gas, oil, or water [employer] threatened to shut off services in your [...] care, and heating?Not hard at all06/23/2025PHQ-2AnswerDate RecordedTotal [id number] PRAPARE - TransportationAnswerDate RecordedIn the past 12 [...] of a household?No06/23/2025hildcareAnswerDate RecordedDo problems getting children's ministry director make it difficult for you to work or study?No06/23/2025 EmploymentAnswerDate PhafwkacMuhmejkixoOlftuno30/06/2019Hunger ScreeningAnswer Date RecordedWithin the past 12 months we worried whether our food would run out before we got money to buy more.Never True06/23/2025Within the past 12 months the food we bought just didn't last and we didn't have money to get more.Never True06/23/2025Purpose - LifeAnswerDate RecordedPurpose and direction in life Harafyd18/27/2021Estimated Date of JoqddukaKvunqhufFmi19/06/2026Based on last menstrual period of 01/09/2025Sex and Gender InformationValueDate RecordedSex Assigned at DpomhMbonkk77/20/2022 9:31 PM ESTLegal WpwYfvkbd16/06/2015 11:49 AM EDTGender MgpbljwpDqrjha60/20/2022 9:31 PM ESTSexual OrientationStraight 07/30/2022 9:31 PM ESTdocumented as of this encounter Miscellaneous Notes * Telephone Encounter - Winter Gibbons LPN - 06/22/2025 3:41 PM EDT Left voicemail at [facility] pharmacy with my direct phone number to inquire why patient is unable to refill her Lovexox as the prior auth was approved by insurance last week. documented in this encounter Plan of Treatment DateTypeDepartmentCare Team (Latest Contact Info)Lbullmhyefk19/30/2025 9:45 AM EDTAppointment [facility] US Imaging [address] [place] [address] 07/09/2025 11:30 AM EDTOffice Visit Maternal- Medicine at [facility] [address] [place] [address] Sana Lima MD [address] [place] [address] documented as of this encounter Goals GoalPatient [...]
--- OUTSIDE RECORDS SUMMARY | 2025-07-01 09:00 | XMS_ITS | Encounter Summary ---
Author Organization [facility] Address [address] [place] [address] Care Team Providers Care Channeler Insole Name Role Phone Riddhi Plata MD Primary Care Provider [phone] Reason for Visit * ReasonCommentsMed Refill Encounter Details DateTypeDepartmentCare Team (Latest Contact Info)Ruhdbittoyj71/18/2025Refill [facility] [address] [place] [address] Bin Morales DO [address] [facility] [address] Kenneth Varela, [facility]11 Pre-existing essential hypertension during , antepartum ([facility]); Primary hypertension; History of pulmonary embolism Social History Tobacco UseTypesPacks/DayYears UsedDateSmoking Tobacco: NeverSmokeless Tobacco: NeverAlcohol UseStandard Drinks/WeekCommentsNever0 (1 standard drink = 0.6 oz pure alcohol)Caffeine intake: 1-2 cups per day coffeeEstimated Date of XmapowbdMdhrmlsbMfg22/06/2026Based on last menstrual period of 01/09/2025Sex and Gender InformationValueDate RecordedSex Assigned at BirthNot on fileLegal Sex Vymkgi4211/22/2022 9:44 PM EDTGender IdentityNot on fileSexual OrientationNot on filedocumented as of this encounter Plan of Treatment DateTypeDepartmentCare Team (Latest Contact Info)Tjboxpujhqq87/29/2025 8:30 AM EDTRoutine [facility] [address] [place] [address] Winter English PA [address] [place] [address] [place] [address] documented as of this encounter Goals GoalPatient Goal TypeAssociated ProblemsRecent ProgressPatient-Stated?Author Help patient manage antidepressant medication Care PlanPatient on antidepressant monitoring planRiddhi Lerma MD Baseline PHQ-9 Care PlanBaseline PHQ-9Riddhi Lerma, MDdocumented as of this encounter Visit Diagnoses Diagnosis Pre-existing essential hypertension during , antepartum ([facility]) Primary hypertension Unspecified essential hypertension History of pulmonary embolism Personal history of venous thrombosis and embolism documented in this encounter Additional Health Concerns Active ProblemsNoted DateDiagnosed DatePatient on antidepressant monitoring plan 4Baseline PHQ-904documented as of this encounter Care Teams Team MemberRelationshipSpecialtyStart DateEnd Date Riddhi Plata MD [address] [place] [address] PCP - GeneralFamily Medicine01/16/23documented as of this encounter
--- OUTSIDE RECORDS SUMMARY | 2025-07-01 09:00 | XMS_ITS | Clinical Summary ---
Author Organization [facility] Address [address] [place] [address] Care Team Providers Care Socket Welder Helper Name Role Phone Riddhi Plata MD Primary Care Provider [phone] Allergies Active AllergyReactionsCriticalityNoted DateCommentsSumatriptanAnaphylaxis, MyzudvoLnhx82/21/2019 IMITREX FOR MIGRAINES Other Reaction(s): Other (See Comments) Medications MedicationSigDispense QuantityRefillsLast FilledStart DateEnd DateStatus albuterol HFA 90 mcg/act inhaler Indications:Moderate persistent asthma without complication (HCC)Inhale 2 puffs every 4 (four) hours if needed for shortness of breath 18 g ctive citalopram (CeleXA) 20 MG tablet Indications:AnxietyTake 1 tablet (20 mg) by mouth in the morning. 100 tablet ctive omeprazole (PriLOSEC) [address] capsule Indications:Gastroesophageal reflux disease without esophagitisTAKE 1 CAPSULE BY MOUTH DAILY 30 MINUTES BEFORE MORNING MEAL 100 capsule ctive cyanocobalamin (Vitamin B-12) 1000 MCG/ML injection 07/14/2024ctive Vit-Fe Fumarate-FA ( Vitamins) 28-0.8 MG tablet Indications:, unspecified gestational age ([facility]),Encounter for supervision of normal first in first trimester ([facility])Take 1 tablet by mouth Daily 30 tablet 605003/20/2026ctive labetalol (Normodyne) 200 MG tablet Indications:Pre-existing essential hypertension during , antepartum ([facility]),Primary hypertension,History of pulmonary embolismTake 1 tablet (200 mg) by mouth in the morning and 1 tablet (200 mg) in the evening and 1 tablet (200 mg) before bedtime. 90 tablet 5Active busPIRone (Buspar) 15 MG tablet Indications:AnxietyTAKE 1 TABLET BY MOUTH 2 TIMES A DAY (MORNING AND BEFORE BEDTIME) 180 tablet 1105Active acetaminophen-codeine (Tylenol w/ Codeine #3) 300-30 MG tablet Indications:Gallstones and inflammation of gallbladder without obstructionTake 1 tablet by mouth every 6 (six) hours if needed for severe pain for up to 5 days 20 tablet Expired Active Problems ProblemNoted DateDiagnosed DateH/O gastric ldcomx0504/20/20251805Mgtxtsu87/07/2023 Disorder of endocrine lxqbib6905/17/2023Frequent /07/2023Irregular exhyyoh7405/17/2023Menorrhagia with regular cycle05/17/2023lass 3 severe obesity due to excess calories with serious comorbidity and body mass index (BMI) of50.0 to 59.9 in adult05/17/2023Nausea and rxniddru23/07/2023cute pulmonary embolism 05/17/2023Single subsegmental pulmonary embolism without acute cor pulmonale 05/17/2023Thyroid ihvsap5505/17/2023Urinary tract infection without hematuria 05/17/2023OSA on CPAP02/22/2023Morbid obesity with body mass index of 60.0-69.9 in adult01/26/2023olycystic ovarian wydjkxc6001/26/2023rimary hypertension 01/26/2023neumonia due to infectious wuziceih18/20/2022Family history of /08/2022History of pulmonary egqgbudb26/08/2022djustment disorder with khskmgl3111/30/2021History of diet controlled gestational diabetes mellitus (GDM)11/30/2021Family history of diabetes during fjuebevtz13/21/2022reeclampsia in period ([facility])11/26/2021 Overview (05/17/2023): 11/29/21: Discharged home with Labetalol 600 QID and Procardia 90 XL qd. Pt has appt with Dr. Morales in [place] 11/30/21 for her PP appt. Pt has BP cuff at home already and would like to f/u with [facility] Grant Officer 12/09/21: Decreased to Labetalol 600 TID 12/26/21: Decreased to Procardia 90 XL qd. Iron deficiency zdndqv6512/29/2019Gastroesophageal reflux erhmxjk6812/15/2019 Seasonal allergic rhinitis due to aojadl4112/15/20192889Bamebor05/28/2019Anemia 06/26/20199440Auwxkwmjjx01/04/2019 Overview (05/17/2023): Started on Celexa Gestational diabetes mellitus (GDM) ([facility])12/09/20180473Xucnbl88/01/2019 Estimated Date of SvckkxsqFogoeimtDlg49/06/2026Based on last menstrual period of 01/09/2025 Encounters DateTypeDepartmentCare ZfgvMrthvjwhboe31/18/2025Refill [facility] [address] [place] [address] [place] [address] Gonzalez Morales DO Pre-existing essential hypertension during , antepartum ([facility]); Primary hypertension; History of pulmonary gbrtyjua81/15/2025 1:40 PM EDTRoutine [facility] [address] [place] [address] [place] [address] Winter English PA Gallstones and inflammation of gallbladder without obstruction (Primary Dx); Second trimester ([facility]); 23 weeks gestation of ([facility]); History of diet controlled gestational diabetes mellitus (GDM); Preeclampsia in period ([facility]); History of pulmonary embolism; Primary hypertension; Diabetes mellitus hqlzirgiq04/14/2025Telephone [facility] [address] [place] [address] [place] [address] Gonzalez Morales DO 06/18/2025Orders Only [facility] [address] [place], [place] [address] [place] [address] Leslye Chairez LPN 06/10/2025 8:50 AM EDTRoutine [facility] [address] [place] [address] Nena Spicer NP 21 weeks gestation of ([facility]); Well woman exam; Second trimester ([facility]); Screen for STD (sexually transmitted disease); Well woman exam with routine gynecological exam; Diabetes mellitus screening; Iron deficiency anemia, unspecified iron deficiency anemia type06/10/2025 Clinisync Result Encounter [facility] External Department Unsolicited Nena Spicer NP 06/10/2025amboo flowsheet [facility] [address] [place] [address] Nena Spicer NP 06/02/2025bstract [facility] [address] [place] [address] Gonzalez Morales, DO 06/01/2025External Result Encounter [facility] [address] [place] [address] Gonzalez Morales, DO 05/25/2025Refill [facility] [address] [place] [address] Riddhi Plata MD Umtnggk7205/14/2025 8:30 AM EDTRoutine [facility] [address] [place] [address] Nena Spicer NP Well woman exam with routine gynecological exam; Screening, , for anatomic survey ([facility]); Second trimester ([facility]); 17 weeks gestation of ([facility]); Vaginal discharge; STD wjjliqhp54/02/2025bstract [facility] [address] [place] [address] Roseanne Jones MA 05/04/2025Telephone [facility] [address] [facility] [place] [address] Maryana Orozco LPN 04/30/2025Telephone [facility] [address] [facility] [place] [address] Marva Cooney, [place] 04/27/2025Telephone [facility] [address] [facility] [place] [address] Marva Cooney, [place] 04/20/2025 9:10 AM EDTRoutine [facility] [place]ole [place] [address] Gonzalez Morales DO Second trimester ([facility]); 14 weeks gestation of ([facility]); Primary hypertension ; H/O gastric bypass; History of diet controlled gestational diabetes mellitus (GDM); Diabetes mellitus xjyqyzizk66/11/2025amboo flowsheet [facility] [address] [place] [address] Gonzalez Morales DO from Last 3 Months Immunizations ImmunizationAdministration DatesNext DueDTaP, Gnbiqtreepg75/07/1999,10/23/1996, 01/17/1996,09/28/1995,03/28/1995HPV, Vehnwkecjyek07/29/2009,02/05/2009, 12/01/2008Hep A, ped/adol, 2 dose02/08/2012,02/05/2009,12/01/2008Hep B, Adolescent or Alamhplky55/09/1996,09/28/1995,03/28/1995HiB, unspecified 10/23/1996,01/17/1996,09/28/1995,03/28/1995Influenza, injectable, quadrivalent, preservative free08/11/2019Influenza, seasonal, wdtfoolcae36/01/2011MMR 01/14/1999,03/28/1995Meningococcal DNC6D4412/01/2008Polio, Gbuidrzpewh67/07/1999, 01/17/1996,09/28/1995,03/28/1995Tdap12/01/2008 Family History Medical HistoryRelationNameCommentsDiabetesFatherHypertensionFatherMental illnessFatherCancerMaternal GrandmotherHypertensionMotherDiabetesPaternal GrandfatherCancerPaternal UdmcrbzkghqOvoghoekObfdVbmlbvPmfxmzyiBixxwxm2Vmumgdba6 FatherAliveMaternal GrandmotherMotherAlivePaternal GrandfatherPaternal IffvlluxqbnDwxhbj0Mlg4 Social History Tobacco UseTypesPacks/DayYears UsedDateSmoking Tobacco: NeverSmokeless Tobacco: Never Tobacco Cessation:Counseling Given: Not Answered Alcohol UseStandard Drinks/WeekCommentsNever0 (1 standard drink = 0.6 oz pure alcohol)Caffeine intake: 1-2 cups per day coffeeEstimated Date of RkcrlhgmYmuexkyjOdj44/06/2026Based on last menstrual period of 01/09/2025Sex and Gender InformationValueDate RecordedSex Assigned at BirthNot on fileLegal Sex Keccpm8911/22/2022 9:44 PM EDTGender IdentityNot on fileSexual OrientationNot on file Last Filed Vital Signs Vital SignReadingTime TakenCommentsBlood Fisbipcj244/7006/24/2025 1:57 PM EDT Bgyaz636310/10/2024 3:32 PM ESTTemperature--Respiratory Ozhx712410/10/2024 3:32 PM ESTOxygen Mfpcdaimob63%10/10/2024 3:32 PM ESTInhaled Oxygen Concentration-- Rvtowl344 kg (234 lb)06/24/2025 1:57 PM JQDBzdyxl562.9 cm (5' 1 )10/10/2024 3:32 PM ESTBody Mass Index44.21010/10/2024 3:32 PM EST Plan of Treatment DateTypeDepartmentCare Team (Latest Contact Info)Pkvasbddtev48/29/2025 8:30 AM EDTRoutine [facility] [address] [facility] [place] [address] Winter English PA [address] [facility] [address] [place], [place] [id number] Health MaintenanceDue DateLast DoneCommentsInfluenza Vaccine (#1)05/11/2025 08/11/2019, 07/11/2011HPV/Xlirmi64, 12/11/2017Cervical Cancer Wcguiqssp45/01/2028Pap Smear Goals GoalPatient Goal TypeAssociated ProblemsRecent ProgressPatient-Stated?Author Help patient manage antidepressant medication Care PlanPatient on antidepressant monitoring Riddhi Mcdonald MD Baseline PHQ-9 Care PlanBaseline PHQ-9Riddhi Lerma MD Procedures Procedure NamePriorityDate/TimeAssociated DiagnosisCommentsRECURRENT VAGINITIS (HTRX)Jddxgbm2806/10/2025 10:04 AM EDT POCT URINALYSIS MZUMTGKZBxporgb13/01/2025 9:14 AM EDT 21 weeks gestation of ([facility]) IGP,APTIMA HPV,AGE GSFSVuhburb38/01/2025 9:06 AM EDT PAP HDCIXAdopouu86/01/2025 12:00 AM EDTUS OB 14+ WEEKS ANATOMY SCAN06/01/2025 5:47 PM EDT POCT URINALYSIS DDRTOCRVRmplpor05/04/2025 9:32 AM EDT Second trimester ([facility]) 17 weeks gestation of ([facility]) POCT URINALYSIS GWWBFFBNZeuqywh08/11/2025 9:22 AM EDT Second trimester ([facility]) THINPREP PAP AND HPV MRNA E6/E7 W/RFL HPV 16,18/98Hmjljyu62/28/2023 4:13 PM EDT Well woman exam with routine gynecological exam from Last 3 Months or Most Recently Relevant to Health Maintenance Results * RECURRENT VAGINITIS (HTRX) (06/10/2025 10:04 AM EDT)ComponentValueRef Range Test MethodAnalysis TimePerformed AtPathologist SignatureATOPOBIUM VAGINAE0 19.961 - 24.689 ppm06/11/2025 6:30 AM EDTHealthTrackRx at LabPortATOPOBIUM VAGINAENot Ixbobhud33.961 - 24.689 ppm06/11/2025 6:30 AM EDTHealthTrackRx at [facility] CenterBVAB 2,3 (BACTERIAL VAGINOSIS ASSOCIATED BACTERIA 2, 3); MOBILUNCUS SPP 019.961 - 24.689 ppm06/11/2025 6:30 AM EDTHealthTrackRx at [facility] CenterBVAB 2,3 (BACTERIAL VAGINOSIS ASSOCIATED BACTERIA 2, 3); MOBILUNCUS SPPNot Detected 19.961 - 24.689 ppm06/11/2025 6:30 AM EDTHealthTrackRx at [facility]ty CenterCANDIDA ALBICANS, PARAPSILOSIS, UWJFIJUJHT868.000 - 30.347 ppm06/11/2025 6:30 AM EDT [facility] CenterCANDIDA ALBICANS, PARAPSILOSIS, TROPICALISNot Detected 23.000 - 30.347 ppm06/11/2025 6:30 AM EDTHealthTrackRx at [facility]ty CenterCANDIDA NVAXKUYO149.000 - 31.618 ppm06/11/2025 6:30 AM EDTHealthTrackRx at [facility] YUAN GLABRATANot Nlzsgnxi48.000 - 31.618 ppm06/11/2025 6:30 AM EDT [facility] CenterCANDIDA ECHDKG750.000 - 30.873 ppm06/11/2025 6:30 AM EDTHealthTrackRx at [facility]ty CenterCANDIDA KRUSEINot Ijtbltqc74.000 - 30.873 ppm 06/11/2025 6:30 AM EDTHealthTrackRx at [facility]ty CenterCHLAMYDIA BHTYEEBAXAL653.000 - 31.586 ppm06/11/2025 6:30 AM EDTHealthTrackRx at [facility]ty CenterCHLAMYDIA TRACHOMATIS Not Hbgxxvok37.000 - 31.586 ppm06/11/2025 6:30 AM EDTHealthTrackRx at [facility] GARDNERELLA PGREEZNHZ287.961 - 24.689 ppm06/11/2025 6:30 AM EDTHealthTrackRx at LabInd[facility]ony HospitalGARDNERELLA VAGINALISNot Dmmnddtp54.961 - 24.689 ppm06/11/2025 6:30 AM EDTHealthTrackRx at LabPortMEGASPHAERA (TYPES 1, 2)019.961 - 24.689 ppm 06/11/2025 6:30 AM EDTHealthTrackRx at LabPortMEGASPHAERA (TYPES 1, 2)Not Fcrhtyil67.961 - 24.689 ppm06/11/2025 6:30 AM EDTHealthTrackRx at [facility] NEISSERIA HQTRCNAVCFB947.000 - 32.587 ppm06/11/2025 6:30 AM EDTHealthTrackRx at [facility]ty CenterNEISSERIA GONORRHOEAENot Wnpnwbmg21.000 - 32.587 ppm06/11/2025 6:30 AM EDTHealthTrackRx at LabInd[facility] Saxony HospitalTRICHOMONAS IXZCJFRBH550.000 - 31.995 ppm 06/11/2025 6:30 AM EDTHealthTrackRx at LabInd[facility] Saxony HospitalTRICHOMONAS VAGINALISNot Kusncrla51.000 - 31.995 ppm06/11/2025 6:30 AM EDTHealthTrackRx at [facility] MYCOPLASMA DDNCNCGAEN347.961 - 24.689 ppm06/11/2025 6:30 AM EDTHealthTrackRx at LabInd[facility]ony HospitalMYCOPLASMA GENITALIUMNot Xhnvedct42.961 - 24.689 ppm06/11/2025 6:30 AM EDTHealthTrackRx at LabPortSpecimen (Source)Anatomical Location / LateralityCollection Method / VolumeCollection TimeReceived TimeTissue 06/10/2025 10:04 AM EDT1 1:43 AM EDT Narrative Authorizing ProviderResult TypeResult StatusKrconstantin Spicer NPLAB BLOOD ORDERABLESFinal ResultPerforming OrganizationAddressCity/State/ZIP CodePhone Number [facility] [address] [address] * (ABNORMAL) POCT urinalysis dipstick manually resulted (06/10/2025 9:14 AM EDT) Only the most recent of3 resultswithin the time period is included. ComponentValueRef RangeTest MethodAnalysis TimePerformed AtPathologist Signature Color, UAYellowClarity, UAClearGlucose, UANegativeNegative - 1999(110) ++++ mg/dLBilirubin, UANegativeNegative - 4(70) +++ mg/dLKetones, UANegativeNegative - 160(16) ++++ mg/dLSpec Grav, UA1.0251 - 1.03Blood, UANegativeNegative - 50 Raul/mcLpH, UA6.05 - 9Protein, UATraceNegative - 1999(20) ++++ mg/dLUrobilinogen, UA2.00.2 - 12 mg/dLLeukocytes, UANegativeNegative - 500+++ Ramo/mcLNitrite, UA NegativeNegative - PositiveSpecimen (Source)Anatomical Location / Laterality Collection Method / VolumeCollection TimeReceived UpscValbq56/01/2025 9:14 AM EDT Narrative Authorizing ProviderResult TypeResult StatusNena Spicer [facility] CARE TEST ENTER/EDIT ORDERABLESFinal Result * IGP,APTIMA HPV,AGE GDLN (06/10/2025 9:06 AM [...] at: 01 =G ?[facility] ?? [address] [place] ??[phone] ?? Flores Rodgers MD, IGP, APTIMA HPV, RFX 16/18,45Note.TBHComment: ?? TESTS ? RESULT ??FLAG ??UNITS ?REF RANGE ??LAB DIAGNOSIS: ?02 ?? NEGATIVE FOR INTRAEPITHELIAL LESION OR MALIGNANCY. Specimen adequacy: ?02 ?? Satisfactory for evaluation. No endocervical component is identified. Performed by: ? 02 ?? Jorge Whittington, Circular Saw Edge Fuser (ASCP) . ? 02 Note: ? Note [...] Low,>-Panic High,A-Abnormal,AA-Critical Abnormal Performed at: 02 WB ?[facility] ?? [address] [place] ??[address] ?? Flores Rodgers MD, HPV APTIMANegativeNegativeTBHComment: This nucleic acid amplification test detects fourteen high- risk HPV types (16,18,31,33,35,39,45,51,52,56,58,59,66,68) without differentiation. Performed at: ??=G - [facility] [address] ??[id number] [place]: Flores Rodgers MD, Phone: ??[phone] Performed at: ??WB - [facility] [address] ??[id number] [place]: Flores Rodgers MD, Phone: ??[phone] Specimen (Source)Anatomical Location / LateralityCollection Method / Volume Collection TimeReceived Time06/10/2025 9:06 AM EDT1 8:57 PM EDT Narrative ABHIJITWA - 06/17/2025 3:09 PM EDT SPATULA-ALONE ENDOCERVIX Authorizing ProviderResult TypeResult StatusGeneric External Data ProviderLAB BLOOD ORDERABLESFinal ResultPerforming OrganizationAddressCity/State/ZIP Code Phone Number [facility] * Pap Smear (06/10/2025 12:00 AM EDT)Specimen (Source)Anatomical Location / LateralityCollection Method / VolumeCollection TimeReceived TimeSwabCervical swab / Unknown Narrative Authorizing ProviderResult TypeResult StatusFazio Nurse Noms Bcp ObLAB CYTOLOGY ORDERABLESFinal ResultPerforming OrganizationAddressCity/State/ZIP CodePhone Number EXTERNAL LAB * US OB 14+ weeks anatomy scan (06/01/2025 5:47 PM EDT)Anatomical Region LateralityModalityBodyUltrasoundSpecimen (Source)Anatomical Location / LateralityCollection Method / VolumeCollection TimeReceived Time06/01/2025 5:47 PM EDT Narrative 06/01/2025 5:47 PM EDT THIS EXAM WAS PERFORMED AT [facility] NAME: ??TARA PERKINS : 1995 SEX: F Accession Number: [id number] ORDERING PHYSICIAN: ESTER PRATT REFERRING PHYSICIAN: GONZALEZ MORALES Coding Procedures ? 68462: Ultrasound, uterus, real time with image documentation, and maternal evaluation ? plus detailed anatomic examination, transabdominal approach;single or first gestation ? 21838: Ultrasound, uterus, real time with image documentation, [...] 239 lb. BMI 46.68 kg/m???. Initial BMI ? 46.68 kg/m??? Method Transabdominal and transvaginal ultrasound examination. View: [...] (oz) ? 11 oz EFW by: ?Hadlock ([id number]) Extended Tibia ??24.7 mm 18w 5d 17% [address] Operations Clerk ? 5.8 mm CM ? 4.6 mm [...] Heart/Thorax: RVOT view. LVOT view. 3-vessel view. 2-fqdqto-gjnwqxo view. Situs. Aortic arch view. Bicaval view. [...] Marginal cord insertion noted. Recommendations Please see M documentation from today. The patient is scheduled in four to six week(s) to complete anatomic survey. Subsequent follow up or other follow up as clinically determined by primary OB provider unless otherwise specified by M. Results forwarded to ordering provider so they can follow up with the patient as necessary. The copy-to physician of this order is GONZALEZ Jenkins The ordering physician of this order is ESTER Lopez Procedure Note Radiology, Radiologist, - 06/01/2025 THIS EXAM WAS PERFORMED AT [facility] NAME: TARA PERKINS : 1995 SEX: F Accession Number: [id number] ORDERING PHYSICIAN: ESTER PRATT REFERRING PHYSICIAN: GONZALEZ MORALES Coding Procedures 35001: Ultrasound, uterus, real time with image documentation, and maternal evaluation plus detailed anatomic examination, transabdominalapproach;single or first gestation 73276: Ultrasound, uterus, real time with imagedocumentation, transvaginal [...] ft. Weight 108 kg, 239 lb. Initial npoeii950 kg, 239 lb. BMI 46.68 kg/m???. Initial BMI 46.68 kg/m??? Method Transabdominal and transvaginal ultrasound examination. View: [...] EFW (oz) 11 oz EFW by: Hadlock ([id number]) Extended Tibia 24.7 mm 18w 5d 17% [address] Operations Clerk 5.8 mm CM 4.6 mm 37% Nicolaides [...] Heart/Thorax: RVOT view. LVOT view. 3-vessel view. 4-amhwmc-qbvseyi view.Situs. Aortic arch view. Bicaval view. Ductal [...] Marginal cord insertion noted. Recommendations Please see M documentation from today. The patient is scheduled in four to six week(s) to complete anatomicsurvey. Subsequent follow up or other follow up as clinically determined byprimary OB provider unless otherwise specified by M. Results forwarded to ordering provider so they can follow up with thepatient as necessary. The copy-to physician of this order is GONZALEZ Jenkins The ordering physician of this order is ESTER Lopez Authorizing ProviderResult TypeResult StatusCorey Carmen DOIMG OB US PROCEDURES Final Result * THINPREP PAP AND HPV MRNA E6/E7 W/RFL HPV 16,18/45 (06/07/2023 4:13 PM EDT) Narrative Authorizing ProviderResult TypeResult StatusAmy Amador PALAB BLOOD ORDERABLES Final ResultPerforming OrganizationAddressCity/State/ZIP CodePhone Number EXTERNAL LAB from Last 3 Months or Most Recently Relevant to Health Maintenance Additional Health Concerns Active ProblemsNoted DateDiagnosed DatePatient on antidepressant monitoring plan 02/01/2024aseline PHQ-9002/01/2024 Insurance [facility] [facility] [place] [address] Care Teams Team MemberRelationshipSpecialtyStart DateEnd Date Riddhi Plata MD [address] [place] [address] PCP - GeneralFamily Medicine01/16/23
--- OUTSIDE RECORDS SUMMARY | 2025-07-01 09:04 | XMS_ITS | CCD ---
Author Organization [facility] CliniSymd Care Team Providers Care Pullman Conductor Name Role Phone PHYSICIAN, DEFAULT Admitting Unavailable PHYSICIAN, DEFAULT Attending Unavailable Unavailable Primary Care Provider UnavailDUARTE Rutherford Attending Unavailable LANITONIA BOLAÑOS Attending Unavailable GIORGI, ZAINULABEDIN Admitting Unavailable GIORGI, [...] MIR Consulting Unavailabl e CARMEN ., DR ROHT Primary Care Unavailable CARMEN ., DR ROTH [...] Unavailable CARMEN ., DR ROTH Admitting Unavailable IMELDA HERNÁNDEZ Consulting Unavailable CARMEN ., DR ROTH Consulting [...] BONI, RIDDHI F Referring Unavailable BONI, RIDDHI Jonas Primary Care Unavailable Boni GUERRERO, [facility] Primary Care Provider [phone] Boni GUERRERO, [facility] Primary Care Provider Boni GUERRERO, [facility] Primary Care Provider Boni GUERRERO, [facility] Primary Care Provider Boni GUERRERO, [facility] Primary Care Provider [phone] Boni GUERRERO, [facility] Primary Care Provider [phone] MORIAH GUTHRIE Attending Unavailable BONI, RIDDHI F Referring Unavailable BONI, RIDDHI Jonas Primary Care Unavailable CARMENBIN R Referring Unavailable BONI, RIDDHI F Primary Care Unavailable PRATT, ESTER Attending Unavailable CARMENBIN R Referring Unavailable BONI, RIDDHI Jonas Primary Care Unavailable PRATT, ESTER Referring Unavailable BONI, RIDDHI F Primary Care Unavailable BONI, RIDDHI F Primary Care Unavailable MAY DUNLAP Referring Unavailable BONI, RIDDHI F Primary Care Unavailable BONI, RIDDHI F Primary Care Unavailable ERASTO ELLSWORTH Attending Unavailable BONI, RIDDHI F Primary Care Unavailable KHUSHBOO LITTLE Admitting Unavailable KHUSHBOO LITTLE Attending Unavailable BONI, RIDDHI F Attending Unavailable CARMENBIN Attending Unavailable DANNIELLENED HYDE Attending Unavailable DANNIELLENED SUBRAMANIAN Attending Unavailable BONI, RIDDHI F Attending Unavailable WINTER ENGLISH Attending Unavailable Allergies Allergy ClassificationReported Allergen(s)Allergy TypeDate of OnsetReaction(s) Facility (4 sources)PlasminDrug [facility]kmz07-42-7947[facility] (20 sources)SUMAtriptan; Translations: [SUMATRIPTAN]Drug Lohegda19-61-4330 Anaphylaxis, Unknown, Other (See Comments)[employer] Work Phone: Medications Current Medications MedicationDrug Class(es)DatesSig (Normalized)Sig (Original)acetaminophen 300 mg / codeine phosphate 30 mg oral tablet (2 sources)Opioid AgonistStart: 06-24-2025 End: 32-60-2665tcdw 1 tablet by mouth every six hours for painacetaminophen- codeine (Tylenol w/ Codeine #3) 300-30 MG tablet Indications: Gallstones and inflammation of gallbladder without obstruction Take 1 tablet by mouth every 6 (six) hours if needed for severe pain for up to 5 days 20 tablet 06/24/2025 06/29/2025 Activeacetaminophen 325 mg / oxyCODONE hydrochloride 5 mg oral tablet (7 sources)Opioid AgonistStart: 04-24-2024 End: 64-16-4153tjrHJYDPD-acetaminophen (PERCOCET) 5-325 mg per tablet Indications: Acute post-operative pain Take 1 tablet by mouth every 6 (six) hours as needed for pain for up to 7 days. Max Daily Amount: 4 tablets 15 tablet 04/24/2024 05/01/2024 ActiveStart: 04-23-2024 End: 48-75-9232foqg 2 tablets by mouth every four hours as needed for pain2 tablet, oral, Every 4 hours PRN, severe pain - pain scale 7-10, Starting on Sun04/23/24 at 1412, Look-alike/sound-alike medication - verify indication for use. aspirin 81 mg delayed release oral tablet (7 sources)Platelet Aggregation Inhibitor, Nonsteroidal Anti-inflammatory Drug Start: 75-34-0936fyco 1 tablet by mouth in the morningaspirin 81 mg Indications: 20 weeks gestation of , Chronic hypertension affecting Take 1 tablet (81 mg total) by mouth in the morning. 30 tablet 6 05/29/2025 Active Start: 50-16-6872046 mg, Oral, DAILY, First dose on Belkis 12/01/21 at 0015, Until Discontinued Please give ASA dose upon admission if not done in ER then DAILY azithromycin 500 mg oral tablet (6 sources)Macrolide AntimicrobialStart: 08-20-2024 End: 24-70-5369dybztnhkeyvh (Zithromax) 500 MG tablet 08/20/2024 03/20/2025 DiscontinuedbusPIRone hydrochloride 15 mg oral tablet (20 sources)Start: 07-04-2023 End: 72-10-1645gdlr 1 tablet by mouth twice daily at bedtimebusPIRone (Buspar) 15 MG tablet Indications: Anxiety TAKE 1 TABLET BY MOUTH 2 TIMES A DAY (MORNING AND BEFORE BEDTIME) 180 tablet 11 05/25/2025 ActiveStart: 07-04-2023 End: 44-06-4484xwqi 50 mg by mouth in the morningbuspirone HCl (BUSPIRONE ORAL) Take 50 mg by mouth in the morning and 50 mg before bedtime. 07/04/2023 07/03/2024Start: 07-04-2023 End: 55-86-1954ghps 50 mg by mouth in the morningbuspirone HCl (BUSPIRONE ORAL) Take 50 mg by mouth in the morning and 50 mg before bedtime. 07/04/2023 07/03/2024 ActiveStart: 07-04-2023 End: 65-36-6487polp 50 mg by mouth in the morningbuspirone HCl (BUSPIRONE ORAL) Take 50 mg by mouth in the morning and 50 mg before bedtime. 0 07/04/2023 07/03/2024 Activecalcium carbonate 500 mg chewable tablet (1 source)Start: 01-18-3936woxfudr carbonate (TUMS) chewable tablet 1,000 mg10 ml calcium gluconate 100 mg/ml injection (1 source)Start: 22-63-5609uswrmid gluconate 10 % injection 1,000 mgcefuroxime 500 mg oral tablet (2 sources)Cephalosporin AntibacterialStart: 08-25-2024 End: 71-82-9929hwec 1 tablet by mouth in the morningcefuroxime (Ceftin) 500 MG tablet Indications: Non-recurrent acute serous otitis media of left ear Take 1 tablet (500 mg) by mouth in the morning and 1 tablet (500 mg) before bedtime. Do all this for14 days. 28 tablet 08/25/2024 09/08/2024 Activecephalexin 500 mg oral capsule (2 sources)Cephalosporin AntibacterialStart: 06-12-2024 End: 08-60-9127hdiy 1 capsule by mouth in the morning, then take 1 capsule by mouth in the evening, then take 1 capsule by mouth at bedtimecephalexin (Keflex) 500 MG capsule Indications: Acute cystitis with hematuria Take 1 capsule (500 mg) by mouth in the morning and 1 capsule (500 mg) in the evening and 1 capsule (500 mg) before bedtime. Do all this for 7 days. 21 capsule 06/12/2024 06/19/2024 Activecholecalciferol 0.025 mg oral tablet (20 sources)Vitamin DStart: 06-01-2025 End: 79-20-6168lzrw 1 tablet by mouth once in the morningcholecalciferol 1,000 units tablet Indications: Vitamin D deficiency Take 1 tablet (1,000 Units total) by mouth in the morning for 30 days. 30 tablet 3 06/01/2025 07/01/2025 Active Start: 03-27-2024 End: 02-59-2671jodj 1 tablet by mouth every weekcholecalciferol, vitamin D3, 50,000 units tablet Indications: Vitamin D deficiency Take 1 tablet (50,000 Units total) by mouth once a week. 12 tablet 03/27/2024 01/01/2025 Discontinued (Therapy completed)Start: 05-31-2023 End: 87-25-1562cpsa 1 tablet by mouth two times weeklycholecalciferol, vitamin D3, 50,000 units tablet Indications: Vitamin D deficiency Take 1 tablet (50,000 Units total) by mouth 2 (two) times a week. 24 tablet 0 05/31/2023 09/27/2023 DiscontinuedStart: 05-30-2023 End: 54-32-8911Q0-50 1.25 MG (60021 UT) capsule 05/30/2023 03/20/2025 Discontinuedcitalopram 20 mg oral tablet (20 sources)Serotonin Reuptake InhibitorStart: 02-01-2024 End: 63-81-1312mfjh 1 tablet by mouth in the morningcitalopram (CeleXA) 20 MG tablet Indications: Anxiety Take 1 tablet (20 mg) by mouth in the morning. 100 tablet 3 02/01/2024 ActiveStart: 14-16-6266tyzd 1 tablet by mouth once daily citalopram (CELEXA) 10 MG tablet Take 1 tablet by mouth daily 30 tablet 3 11/27/2021 ActivediphenhydrAMINE hydrochloride 25 mg oral tablet (2 sources)Histamine-1 Receptor AntagonistStart: 71-10-0035mrlrcldcatAANLB (BENADRYL) tablet 25 mgdocusate sodium 50 mg / sennosides, nursing home 8.6 mg oral tablet (6 sources)Start: 25-05-4456pfwy 1 tablet by mouth in the morningsennosides- docusate sodium (SENOKOT-S) 8.6-50 mg Take 1 tablet by mouth in the morning. 30 tablet Active0.4 ml enoxaparin sodium 100 mg/ml prefilled syringe (13 sources)Low Molecular Weight HeparinStart: 00-85-6012jsesyt 0.4 mL by subcutaneous injection at bedtimeenoxaparin (LOVENOX) 40 mg/0.4 mL syringe Indications: 20 weeks gestation of , History ofmaternal pulmonary embolus Inject 0.4 mL (40 mg total) under the skin in the morning and at bedtime. 12 mL 11 05/29/2025 ActiveStart: 04-25-2024 End: 78-07-8432ifxnpt 0.4 mL by subcutaneous injection onceenoxaparin (LOVENOX) 40 mg/0.4 mL syringe Indications: Class 3 severe obesity due to excess calories with serious comorbidity and body mass index (BMI) of 60.0 to 69.9 in adult [place] , History ofpulmonary embolism Inject 0.4 mL (40 mg total) under the skin Every 12 (twelve) hours for 14 days. 11.2 mL 04/25/2024 04/24/2024 DiscontinuedStart: 04-24-2024 End: 54-38-2077ytgnfo 0.4 mL by subcutaneous injection onceenoxaparin (LOVENOX) 40 mg/0.4 mL syringe Indications: Class 3 severe obesity due to excess calories with serious comorbidity and body mass index (BMI) of 60.0 to 69.9 in adult ([facility] , History ofpulmonary embolism Inject 0.4 mL (40 mg total) under the skin Every 12 (twelve) hours for 14 days. 11.2 mL 04/24/2024 05/08/2024 Active Start: 04-24-2024 End: 40-06-674956 mg, subcutaneous, Every 12 hours scheduled, First dose on Sun04/24/24 at 0600, BMI greater than 40 Look-alike/sound-alike medication - verify indication for use.ethinyl estradiol 0.035 mg / norgestimate 0.25 mg oral tablet (2 sources)Progestin, Estrogentake 1 tablet by mouth once daily, then take 0.25- 35 tablets by mouth oncenorgestimate-ethinyl estradiol (ORTHO-CYCLEN) 0.25-35 MG-MCG per tablet Take 1 tablet by mouth daily 0 Activeferrous sulfate 325 mg oral tablet (12 sources)Start: 01-02-2025 End: 28-72-4415lsgv 1 tablet by mouth in the morningferrous sulfate 325 (65 FE) MG tablet Indications: History of Bonnie-en-Y gastric bypass , Postsurgical malabsorption , Malnutrition following gastrointestinal surgery , Iron deficiency Take 1 tablet (325 mg total) by mouth in the morning. 90 tablet 1 06/08/2025 ActiveStart: 80-92-0176pwbc 325 mg by mouth once daily at breakfast 325 mg, Oral, DAILY WITH BREAKFAST, First dose on Sun12/01/21 at 0800, Until DiscontinuedStart: 09-99-2527tcaj 1 tablet by mouth once daily at breakfast ferrous sulfate (IRON 325) 325 (65 Fe) MG tablet Indications: Iron deficiency anemia secondary to inadequate dietary iron intake Take 1 tablet by mouth daily (with breakfast) 180 tablet 1 11/30/2021 ActiveStart: 06-44-2615cyvfcxo sulfate (FE TABS 325) EC tablet 325 mgfluticasone propionate 0.05 mg/actuat metered dose nasal spray (10 sources)CorticosteroidStart: 11-12-2023 End: 71-18-6609lbircezakgl (Flonase) 50 MCG/ACT nasal spray 11/12/2023 03/20/2025 Discontinuedfolic acid 0.4 mg oral tablet (8 sources)Start: 26-67-6261zurq 1 tablet by mouth in the morningfolic acid (FOLVITE) 400 MCG tablet Take 1 tablet (400 mcg total) by mouth in the morning. 30 tablet 6 06/08/2025 ActiveStart: 01-02-2025 End: 70-62-3528cewk 1 tablet by mouth in the morningfolic acid (FOLVITE) 1 mg tablet Indications: History of Bonnie-en-Y gastric bypass , Postsurgical mal absorption , Malnutrition following gastrointestinal surgery , Folate deficiency Take 1 tablet (1 mg total) by mouth in the morning. 90 tablet 01/02/2025 06/08/2025 DiscontinuedhydrOXYzine hydrochloride 25 mg oral tablet (2 sources)AntihistamineStart: 66-52-7500ihpqUWZsakw (ATARAX) tablet 25 mg labetalol hydrochloride 200 mg oral tablet (20 sources)beta-Adrenergic BlockerStart: 05-04-2025 End: 40-49-7163wdoe 1 tablet by mouth in the morning, then take 1 tablet by mouth in the evening, then take 1 tablet by mouth at bedtimelabetalol (Normodyne) 200 MG tablet Indications: Pre-existing essential hypertension during , antepartum ([facility]) , Primary hypertension , History of pulmonary embolism Take 1 tablet (200 mg) by mouth in the morning and 1 tablet (200 mg) in the evening and 1 tablet (200 mg) before bedtime. 90 tablet 1 05/04/2025 ActiveStart: 51-57-8101ixps 600 mg by mouth four times dvcra431 mg, Oral, 4 TIMES DAILY, First dose on Belkis 12/01/21 at 0015, Until DiscontinuedStart: 11-28-2021 End: 73-18-3577tffo 2 tablets by mouth four times dailylabetalol (NORMODYNE) 300 MG tablet Take 2 tablets by mouth 4 times daily 60 tablet 3 11/28/2021 Active Start: 11-27-2021 End: 56-79-7296olzefrfcg (NORMODYNE) tablet 600 mgStart: 11-27-2021 End: 53-13-8698ocjb 3 tablets by mouth at bedtimelabetalol (NORMODYNE) 200 MG tablet Take 3 tablets by mouth in the morning, at noon, and at foxnzbq953 tablet 1 11/27/2021 11/28/2021 Discontinued (REORDER)Start: 55-80-9633imwsvdrou (NORMODYNE;TRANDATE) 5 MG/ML injectionStart: 79-18-7097yqptykrck (NORMODYNE;TRANDATE) injection 40 mgStart: 11-26-2021 End: 32-28-5299ixypjixpr (NORMODYNE) tablet 400 mgStart: 99-20-8241hwcqzajee (NORMODYNE;TRANDATE) injection 20 mgStart: 11-23-2021 End: 44-36-2754gxalctidh (NORMODYNE) 200 MG tabletmagnesium oxide 400 mg oral tablet (2 sources)Start: 43-11-5147xhfq 1 tablet by mouth once dailymagnesium oxide (MAG-OX) 400 MG tablet TAKE 1 TABLET BY MOUTH EVERY DAY 0 08/25/2021 Cnhsim140 ml magnesium sulfate 10 mg/ml injection (5 sources)Start: 10-28-8304lkrd 1000 mg intravenously every hour as needed1,000 mg, IntraVENous, at 100 mL/hr, Administer over 1 Hours, PRN, Other, Per IV Magnesium Replacement Protocol, Starting on Sun11/30/21 at 2358 Mg Lab Replacement Action 1.4- 1.6 1 gram IVPB x 2 doses&am p;nbsp; &am p;nbsp; (2 gram Total) 1.0- 1.3 1 gram IVPB x 4 doses & amp;nbsp; & amp;nbsp; (4 gram Total) <1.0 CALL PHYSICIAN and 1 gram IVPB x 4 doses (4 gram Total) Infuse at 1 gram/hr Repeat Mag level next AM Protocol not for use in Patients with CrCl<30ml/min Start: 11-26-2021 End: 90-30-9247ogmoblseg sulfate (59924 mg/500mL infusion)Start: 11-25-2021 End: 48-30-1833uczdfooqq sulfate 2000 mg in 50 mL IVPB premixmelatonin 5 mg oral tablet (1 source)Start: 79-62-6738ohcwwvzpe tablet 5 mgNIFEdipine 90 mg osmotic 24 hr extended release oral tablet (10 sources)Dihydropyridine Calcium Channel BlockerStart: 64-98-2193fmar 1 tablet by mouth once dailyNIFEdipine (PROCARDIA XL) 90 MG extended release tablet Take 1 tablet by mouth daily 30 tablet 3 11/28/2021 ActiveStart: 11-28-2021 End: 69-08-9557vaqg 1 tablet by mouth once dailyNIFEdipine (PROCARDIA XL) 60 MG extended release tablet Take 1 tablet by mouth daily 30 tablet 3 11/28/2021 11/28/2021 Discontinued (Stop Taking at Discharge)Start: 00-68-8776SSAZjilorw (PROCARDIA XL) extended release tablet 90 mgStart: 11-26-2021 End: 09-10-5682ZIOKafpukb (PROCARDIA XL) extended release tablet 30 mg ondansetron 4 mg disintegrating oral tablet (18 sources)Serotonin-3 Receptor AntagonistStart: 03-20-2025 End: 94-84-3677ljbx 1 tablet by mouth every six hours for nauseaondansetron ODT (Zofran-ODT) 4 MG disintegrating tablet Indications: , unspecified gestational age ([facility]) , Nausea Take 1 tablet (4 mg) by mouth every 6 (six) hours if needed for nausea or vomiting 30 tablet 3 03/20/2025 04/19/2025 Active Start: 04-24-2024 End: 45-91-0663miqx 1 tablet by mouth every six hours as needed for nausea and vomitingondansetron ODT (ZOFRAN ODT) 4 mg disintegrating tablet Dissolve 1 tablet (4 mg total) on tongue every 6 (six) hours as needed for nausea or vomiting. 20 tablet 1 04/24/2024 01/01/2025 DiscontinuedStart: 04-23-2024 End: 35-04-3379vqyd 4 mg intravenously every four hours as needed for nausea and vomitingStart: 11-30-2021 End: 83-92-9783mexhntpcvws (ZOFRAN) injection 4 mgStart: 11-26-2021 End: 01-56-2282leaqziernuc (ZOFRAN-ODT) disintegrating tablet 4 mgStart: 46-93-2082oeflnazgedz (ZOFRAN-ODT) 4 MG disintegrating tablet DISSOLVE 1 TABLET EVERY 6 HOURS NEEDED FOR NAUSEA AND VOMITING 0 10/25/2021 Active End: 18-41-4797qnvy 1 tablet by mouth every eight hours as needed for nausea and vomitingondansetron (ZOFRAN) 4 mg tablet Take 1 tablet (4 mg total) by mouth every 8 (eight) hours as needed for nausea or vomiting. 05/29/2025 Discontinued ondansetron (ZOFRAN-ODT) disintegrating tablet 4 mg (1 source)Start: 01-45-3985rwzutqyiseq (ZOFRAN-ODT) disintegrating tablet 4 mg oseltamivir 75 mg oral capsule (2 sources)Neuraminidase InhibitorStart: 10-10-2024 End: 29-63-3272yfsf 1 capsule by mouth in the morningoseltamivir (Tamiflu) 75 MG capsule Indications: Influenza A Take 1 capsule (75 mg) by mouth in themorning and 1 capsule (75 mg) before bedtime. Do all this for 5 days. 10 capsule 10/10/2024 10/15/2024 ActivePotassium Chloride (1 source)Start: 70-82-0472egtdgfdxc chloride (KLOR-CON M) extended release tablet 40 mEqpredniSONE 20 mg oral tablet (6 sources)Start: 08-20-2024 End: 43-30-8129xknjboYZTX (Deltasone) 20 MG tablet 08/20/2024 03/20/2025 Discontinuedprenatal 115/iron/folic acid ( 19 ORAL) (7 sources) 115/iron/folic acid ( 19 ORAL) Take by mouth. Active Vit-Fe Fumarate-FA ( Vitamins) 28-0.8 MG tablet (14 sources)Start: 03-20-2025 End: 83-14-4717lpkg 1 tablet by mouth once dailyPrenatal Vit-Fe Fumarate-FA ( Vitamins) 28-0.8 MG tablet Indications: , unspecified [facility] age [facility] , Encounter for supervision of normal first in first trimester([facility]) Take 1 tablet by mouth Daily 30 tablet 6 03/20/2025 03/20/2026 Activeprenatal vitamin plus iron 29-1 MG tablet 1 tablet (1 source)Start: 00-96-1887ntxbmmom vitamin plus iron 29-1 MG tablet 1 tablet rivaroxaban (3 sources)Factor Xa InhibitorStart: 12-01-2021 End: 46-28-8830agvqvhmuote (XARELTO) tablet 15 mgStart: 76-36-0168edthjrjbsxx 15 & 20 MG Starter Pack Take as directed on package. 1 each 0 12/01/2021 Odlnya89 hr scopolamine 0.0139 mg/hr transdermal system (1 source)AnticholinergicStart: 03-27-2024 End: 28-75-6706apdgl 1 dose transdermal route once dailyscopolamine (TRANSDERM- SCOP) 1 mg/3 days Indications: PONV (postoperative nausea and vomiting) Place 1 patch on the skin once for [address] behind ear night before surgery. Wash hands immediatelyafter applying. 1 patch 03/27/2024 03/27/2024 Activesertraline 100 mg oral tablet (12 sources)Serotonin Reuptake Inhibitor End: 91-13-5371jitojnnadb (Zoloft) 100 MG tablet 03/20/2025 Discontinued End: 21-35-2012apgh 1 tablet by mouth once dailysertraline (ZOLOFT) 50 MG tablet Take 50 mg by mouth daily 0 11/27/2021 Discontinued (Stop Taking at Discharge) syringe with needle (BD LUER-KARENA SYRINGE) 3 mL 25 x 1 1/2 syringe (10 sources)Start: 61-19-5287ffvvdhz with needle (BD LUER-KARENA SYRINGE) 3 mL 25 x 1 1/2 syringe Indications: History of Bonnie-en-Y gastric bypass , Postsurgical malabsorption , Malnutrition following gastrointestinal surgery , B12 deficiency 1 SYRG by miscellaneous route every 30 (thirty) days. 3 each 1 01/02/2025 ActiveStart: 46-31-4368besiiad with needle (BD LUER-KARENA SYRINGE) 3 mL 25 x 1 1/2 syringe Indications: Malnutrition following gastrointestinal surgery , Postsurgical malabsorption , H/O gastric bypass 1 SYRG by miscellaneo us route every 30 (thirty) days. 3 each 06/04/2024 Activevitamin b12 1 mg/ml injectable solution (20 sources)Vitamin E14Witby: 01-01-2025 End: 28-27-9571ggafssjsiflufd (VITAMIN B-12) injection 1,000 mcgStart: 01-01-2025 End: 63-31-1910ugeutd 1000 ug by intramuscular injection once1,000 mcg, intramuscular, Once, On Sun01/01/25 at 1230, For 1 doseStart: 06-04-2024 cyanocobalamin (VITAMIN B-12) 1,000 mcg/mL injection Indications: History of Bonnie-en-Y gastric bypass , Postsurgical malabsorption , Malnutrition following gastrointestinal surgery , B12 deficiency Inject 1 mL (1,000 mcg total) into the appropriate muscle every 30 (thirty) days. 3 mL 1 01/02/2025 ActiveStart: 06-04-2024 End: 41-96-4827igbtvxqejqyjol (VITAMIN B-12) injection 1,000 mcgStart: 06-04-2024 End: 49-11-1770cmfdym 1000 ug by intramuscular injection once1,000 mcg, intramuscular, Once, On Sun06/04/24 at 1130, For 1 dose Completed/Discontinued Medications MedicationDrug Class(es)DatesSig (Normalized)Sig (Original)acetaminophen 500 mg oral tablet (5 sources)Start: 04-23-2024 End: 05-91-7938bdrp 1000 mg by mouth once1,000 mg, oral, Once, On Sun04/23/24 at 0800, For 1 dose, Pre-opStart: 96-92-2483apsqhxhablghy (TYLENOL) tablet 650 mg Start: 11-25-2021 End: 19-17-1694uftxkzexmzfao (TYLENOL) tablet 1,000 mgtake 3 tablets by mouth every eight hours as needed for painacetaminophen (TYLENOL EXTRA STRENGTH) 500 mg tablet Indications: pain Take 3 tablets (1,500 mg total) by mouth every 8 (eight) hours as needed for pain Indications: pain. Activeacetaminophen 325 mg / HYDROcodone bitartrate 5 mg oral tablet (1 source)Opioid AgonistStart: 12-05-2021 End: 08-02-8762PFFQZwencea-acetaminophen (NORCO) 5-325 MG per tablet 1 tablet albuterol 0.83 mg/ml inhalation solution (20 sources)beta2-Adrenergic AgonistStart: 04-23-2024 End: 04-35-1733gzam 2.5 mg by inhalation every six hours as needed for wheezing and dyspneaStart: 02-12-2818kznu 2 puff(s) by inhalation every four hours albuterol HFA 90 mcg/act inhaler Indications: Moderate persistent asthma without complication (HCC)Inhale 2 puffs every 4 (four) hours if needed for shortness of breath 18 g 3 02/01/2024 ActiveStart: 84-34-7753ipsi 2 puff(s) by inhalation every four hours as needed for wheezingalbuterol (PROVENTIL HFA;VENTOLIN HFA) 90 mcg/actuation inhaler Indications: Mild intermittent asthma, unspecified whether complicated Inhale 2 puffs every 4 (four) hours as needed for wheezing. 18 g109/27/2021 Activeapixaban 5 mg oral tablet (1 source)Factor Xa InhibitorStart: 12-01-2021 End: 15-20-2625uozildjg starter pack (ELIQUIS DVT/PE STARTER PACK) 5 MG TBPK tablet Take 1 tablet by mouth See Admin Instructions 74 tablet 0 12/01/2021 12/01/2021 Discontinued (Stop Taking at Discharge)aprepitant 40 mg oral capsule (1 source)Substance P/Neurokinin-1 Receptor AntagonistStart: 04-23-2024 End: 36-89-8830qyop 40 mg by mouth once40 mg, oral, Once, On Sun04/23/24 at 0800, For 1 dose, Pre-opcalcium chloride 0.0014 meq/ml / potassium chloride 0.004 meq/ml / sodium chloride 0.103 meq/ml / sodium lactate 0.028 meq/ml injectable solution (4 sources)Start: 04-23-2024 End: 42-65-8110lljc 100 mL intravenously every onzf438 mL/hr, intravenous, Continuous, Starting on Sun04/23/24 at 1415Start: 11-26-2021 End: 37-67-0314CgcjtSDQgnu, at 125 mL/hr, CONTINUOUS, Starting on Sun11/26/21 at 0645Start: 11-26-2021 End: 36-51-0788yvzmgfst ringers infusioncyclobenzaprine hydrochloride 10 mg oral tablet (10 sources)Muscle RelaxantStart: 12-15-2024 End: 89-42-1305uiki 1 tablet by mouth twice daily as needed for muscle spasms cyclobenzaprine (FLEXERIL) 10 mg tablet Take 1 tablet (10 mg total) by mouth 2 (two) times a day asneeded for muscle spasms. 10 tablet 12/15/2024 01/01/2025 DiscontinuedStart: 04-24-2024 End: 94-48-0690ztvo 1 tablet by mouth three times daily as needed for muscle spasmscyclobenzaprine (FLEXERIL) 10 mg tablet Take 1 tablet (10 mg total) by mouth 3 (three) times a day as needed for muscle spasms. 20 tablet 04/24/2024 01/01/2025 Discontinueddocusate sodium 100 mg oral capsule (16 sources)Start: 03-27-2024 End: 27-61-3040lytn 1 capsule by mouth in the morning, then take 1 capsule by mouth every week at bedtimedocusate sodium (COLACE) 100 mg capsule Indications: Constipation, unspecified constipation type Take 1 capsule (100 mg total) by mouth in the morning and 1 capsule (100 mg total) before bedtime. Start one week prior to surgery and continue two weeks after surgery.. 42 capsule 04/17/2024 01/01/20252699Tfhfhcayketj9 ml fentaNYL 0.05 mg/ml injection (1 source)Opioid AgonistStart: 04-23-2024 End: mcg, intravenous, Every 5 min PRN, Pain Scale 6-10, Starting on Sun04/23/24 at 1058, PACU (only), Up to a maximum dose of 150 mcg. Look-alike/sound-alike medication - verify indication for use.glucagon (rdna) 1 mg injection (1 source)Antihypoglycemic AgentStart: 04-23-2024 End: 64-59-9505131 ml glucose 50 mg/ml injection (3 sources)Start: 04-23-2024 End: 05-01-6329Jcaco: 04-23-2024 End: 87-67-8213Xgvvl: 04-23-2024 End: ml heparin sodium, porcine 5000 unt/ml injection (4 sources)Unfractionated Heparin, Anti-coagulantStart: 04-23-2024 End: 77-87-6612umovyj 5000 [IU] by subcutaneous injection once5,000 Units, subcutaneous, Once, On Sun04/23/24 at 0845, For 1 dose, Look-alike/sound-alike medication - verify indication for use. Observe for bleeding.Start: 11-30-2021 End: 34-72-1715svnqrow (porcine) injection 10,000 UnitsStart: 11-30-2021 End: -30 Units/kg/hr 126.6 kg (6.33-37.98 mL/hr, rounded to [...] IV bolus x 1 (max 10,000 units), then18 units/kg/hr (max initial rate 2100 units/hr) = 16.6 units/kg/hr. Adjust infusion rate based on Anti-Xa results (target range 0.3-0.7). For titrationpurposes, continue to use the initial weight of 126.6 kg for adjustments. Anti-Xa < 0.1 Heparin 80 units/kg (max 10,000 units) bolus, then increase infusion by 4 units/kg/hr Anti- Xa 0.1 - 0.29 Heparin 40 units/kg (max 5,000 units)bolus, then increase infusion by 2 units/kg/hr Anti-Xa 0.3 - 0.7 No bolu s No change in rate Anti-Xa 0.71-0.8 No bolus Decrease infusion by 1 units/kg/hr Anti- Xa 0.81 - 0.99 No bolus Decrease infusion by 2 units/kg/hr Anti-Xa 1 unit/mL or greater Hold heparin for 60 min, then decrease infusion by 3 units/kg/hr from previous rate (no bolus for restart) Check Anti-Xa 6 hours after initiation and 6 hours after every dose change. When Anti-Xa is within target range for two consecutive times, check Anti-Xa once daily. *80 units/kg bolus max= 10,000 units *40 units/kg bolus max= 5,000 units (for bolus doses, use patient's current weight) .1 ml hydrALAZINE hydrochloride 20 mg/ml injection (6 sources)Arteriolar VasodilatorStart: 11-28-2021 End: 60-41-6959fwtoVTEBZSO (APRESOLINE) injection 10 mgStart: 11-28-2021 End: 78-72-7714achuMGTISJT (APRESOLINE) injection 10 mgStart: 11-28-2021 End: 26-00-4293nkxeMENQQCO (APRESOLINE) injection 10 mgStart: 11-27-2021 End: 58-52-5350jmnnSTGRXBT (APRESOLINE) injection 10 mgStart: 11-27-2021 End: 08-37-5969kdnbGJYPXII (APRESOLINE) 20 MG/ML injectionStart: 11-25-2021 End: 39-14-0086viljMJODZCH (APRESOLINE) injection 10 mghyoscyamine sulfate 0.125 mg disintegrating oral tablet (1 source)Start: 04-23-2024 End: 32-12-1378kwla 125 ug under the tongue four times jqujq213 mcg, sublingual, 4 times daily, First dose on Sun04/23/24 at 1200ibuprofen 800 mg oral tablet (4 sources)Nonsteroidal Anti-inflammatory DrugStart: 07-14-2023 End: 46-36-1049oosl 1 tablet by mouth every six hours as needed for pain ibuprofen (MOTRIN) 800 mg tablet Take 1 tablet (800 mg total) by mouth every 6 (six) hours as needed for pain. 30 tablet 0 07/14/2023 09/27/2023 Discontinued Start: 78-47-0772mkvaybbgs (ADVIL;MOTRIN) tablet 600 mgiopamidol (ISOVUE-370) 76 % injection 75 mL (1 source)Start: 11-30-2021 End: 33-25-5941aibnknitn (ISOVUE-370) 76 % injection 75 mLiopamidol (ISOVUE-370) 76 % injection 85 mL (1 source)Start: 11-26-2021 End: 70-37-4572omluienie (ISOVUE-370) 76 % injection 85 mL1 ml ketorolac tromethamine 15 mg/ml injection (2 sources)Nonsteroidal Anti-inflammatory Drug, Cyclooxygenase InhibitorStart: 04-23-2024 End: 17-87-9758hzmh 15 mg intravenously every six hours15 mg, intravenous, Every 6 hours, First dose on Sun04/23/24 at 1500, For 5 days, Patients 65 yearsor older or weigh less than 50 kg. Hold for patients 80 or older. Maximum of 20 doses. Look-alike/sound-alike medication - verify indication for use. Duration of therapy is not to exceed 5 days. Maximum recommended dose + 120mg/24 hours. Start: 11-26-2021 End: 48-33-4737eudgyojqb (TORADOL) injection 30 mglidocaine 0.05 mg/mg medicated patch (3 sources)Antiarrhythmic, Amide Local AnestheticStart: 07-14-2023 End: 08-63-7370unqga 1 dose transdermal route once daily, then apply 1 dose transdermal route every twelve hourslidocaine (LIDODERM) 5 % Place 1 patch on the skin daily. Remove & Discard patch within 12 hours or as directed by 15 patch 0 07/14/2023 09/27/2023 Discontinuedlisinopril 10 mg oral tablet (20 sources)Angiotensin Converting Enzyme InhibitorStart: 04-24-2024 End: 85-60-7820mxdu 10 mg by mouth once daily10 mg, oral, Daily, First dose on Sun04/24/24 at 0900, Look-alike/sound-alike medication - verify indication for use.Start: 03-04-2024 End: 62-34-3705bwbx 1 tablet by mouth once dailylisinopril 20 MG tablet Indications: Gastroesophageal reflux disease without esophagitis Take 1 tablet (20 mg) by mouth Daily 100 tablet 3 03/04/2024 06/12/2024 Discontinued (Therapy completed) End: 02-87-4224vcvt 0.5 tablet by mouth in the morninglisinopriL (PRINIVIL,ZESTRIL) 20 mg tablet Take 0.5 tablets (10 mg total) by mouth in the morning. 05/29/2025 Discontinuedtake 1 tablet by mouth in the morninglisinopriL (PRINIVIL,ZESTRIL) 20 mg tablet Take 1 tablet (20 mg total) by mouth in the morning. 0 Activetake 1 tablet by mouth in the morninglisinopriL (PRINIVIL,ZESTRIL) 10 mg tablet Take 1 tablet (10 mg total) by mouth in the morning. 0 Activemagnesium hydroxide 80 mg/ml oral suspension (1 source)Start: 06-22-0974znpd 30 mL by mouth once daily as mhmtpy19 mL, Oral, DAILY PRN, Starting on Sun11/30/21 at 2358, Until Discontinued, Constipation First line therapy for constipation.osmotic 24 hr metFORMIN hydrochloride 500 mg extended release oral tablet (3 sources)Biguanide End: 64-67-2657rxwi 1 tablet by mouth once daily at breakfastmetFORMIN (FORTAMET) 500 MG (OSM) 24 hr tablet Take 1 tablet (500 mg total) by mouth daily with breakfast. 0 09/27/2023 Discontinued1 ml morphine sulfate 4 mg/ml injection (2 sources)Opioid AgonistStart: 04-23-2024 End: 06-95-6406fcxu 4 mg intravenously every two hours as neededStart: 11-30-2021 End: 16-49-9398ugtdxlts (PF) injection 2 mgnitroglycerin 0.4 mg sublingual tablet (1 source)Nitrate VasodilatorStart: .4 mg, SubLINGual, EVERY 5 MIN PRN, 3 doses, Starting on Sun11/30/21 at 2358, Until Discontinued, Chest pain Place 1 tablet under tongue upon chest pain, wait 5 minutes and may repeat up to 3 doses in 15 minutes. Do not crush or break.omeprazole 40 mg delayed release oral capsule (20 sources)Proton Pump InhibitorStart: 04-24-2024 End: 12-16-4380mjkv 1 capsule by mouth once daily before breakfastomeprazole (PriLOSEC) 40 mg capsule Take 1 capsule (40 mg total) by mouth every morning before breakfast. 90 capsule 04/24/2024 05/29/2025 DiscontinuedStart: 2020 End: 85-35-8749dvzgrfnabp (PriLOSEC) [address] capsule Indications: Gastroesophageal reflux disease without esophagitis TAKE 1 CAPSULE BY MOUTH DAILY 30 MINUTES BEFORE MORNING MEAL 100 capsule 3 02/01/2024 Activetake 1 tablet by mouth in the morningomeprazole (PriLOSEC OTC) 20 mg EC tablet Take 1 tablet (20 mg total) by mouth in the morning. Biczwc59 hr orphenadrine citrate 100 mg extended release oral tablet (3 sources)Muscle RelaxantStart: 07-14-2023 End: 85-82-5356liqr 1 tablet by mouth in the morning, then take 1 tablet by mouth every twelve hours at bedtimeorphenadrine (NORFLEX) 100 mg 12 hr tablet Take 1 tablet (100 mg total) by mouth in the morning and1 tablet (100 mg total) before bedtime. 20 tablet 0 07/14/2023 09/27/2023 Discontinuedpantoprazole 40 mg delayed release oral tablet (1 source)Proton Pump InhibitorStart: 04-23-2024 End: 84-22-518094 mg, oral, Daily, First dose on Sun04/23/24 at 1500, Look-alike/sound-alike medication - verify indication for use. If patient is receiving enteral feeding, consider alternative PPI or continue IV pantoprazole until the delayed-release tablet can be taken orally, Indication: GERDprenatal vit 10-iron fum-folic 65-1 mg tablet (3 sources)Start: 02-22-2023 End: 23-28-6975nzbs 1 tablet by mouth in the morningprenatal vit 10-iron fum- folic 65-1 mg tablet Indications: Morbid obesity (CMS-HCC) , Preop testingTake 1 tablet by mouth in the morning. 90 tablet 3 02/22/2023 09/27/2023 Discontinued Start: 72-72-1870wmjq 1 tablet by mouth in the morningprenatal vit 10-iron fum- folic 65-1 mg tablet Indications: Morbid obesity (CMS-HCC) , Preop testingTake 1 tablet by mouth in the morning. 90 tablet 3 02/22/2023 Activeprochlorperazine 5 mg/ml injectable solution (1 source)PhenothiazineStart: 04-23-2024 End: 25-98-5976zyhx 5 mg intravenously every six hours as needed for nausea and vomiting5 ml sodium chloride 9 mg/ml injection (9 sources)Start: 95-62-6469sjgg 1 dose intravenously twice daily5-40 mL, IntraVENous, EVERY 12 HOURS SCHEDULED (2 [...] mL Midline or Central Line = 20 mL/lumenStart: 28-24-7688ipll 25 mL intravenously every hour as bsajck93 mL, IntraVENous, at 100 mL/hr, PRN, If patient receiving piggyback infusions without ordered maintenance IV fluids or with frequent/long duration piggyback infusions, Starting on Sun11/30/21 at 2358 Administer at the same rate as the piggyback being infused.Start: 11-30-2021 take 10 mL intravenously once as ojrqro90 mL, IntraVENous, PRN, Starting on 11/30/21 at 2358, Until Discontinued, Line Care, After every IV line useStart: 11-30-2021 End: 54-52-2778fgiiyo chloride flush 0.9 % injection 10 mLStart: 11-30-2021 End: .9 % sodium chloride bolusStart: 78-49-6760tmch 1 dose intravenously twice daily5-40 mL, IntraVENous, EVERY 12 HOURS SCHEDULED (2 times per day), First dose on 11/26/21 at 0900For Line Patency: Peripheral IV = 5 mL; [...] parenteral nutrition, contrast media, or after obtaining bloodsample) use: Peripheral IV = 10 mL Midline or Central Line = 20 mL/lumenStart: 80-48-4954dsyk 25 mL intravenously every hour as sjvimm14 mL, IntraVENous, at 100 mL/hr, PRN, If patient receiving piggyback infusions without ordered maintenance IV fluids or with frequent/long duration piggyback infusions, Starting on 11/26/21 at 0623 Administer at the same rate as the piggyback being infused.Start: 11-26-2021 take 5-40 mL intravenously once as needed5-40 mL, IntraVENous, PRN, Line Care, After every IV line use, Starting on 11/26/21 at 0623 For Line Patency: Peripheral IV = 5 mL; Midline or Central Line = 10 mL/lumen. If foll owing IV push medication, administer flush at same [...] chloride 0.9 % 50 mL IVPB (1 source)Start: 04-23-2024 End: 64-81-9205jseoyazwcbl, at 102 mL/hr, Administer over 30 Minutes, Once, On Sun04/23/24 at 1130, For 1 dose, PACU (only), Look-alike/sound-alike medication - verify indication for use. Problems Active Problems Problem ClassificationProblemDateDocumented DateEpisodic/ChronicAbdominal pain (3 sources)Right upper quadrant pain; Translations: [Right upper quadrant pain] Onset: 954244-93-5139VfjwultkAhvikjseky disorders (20 sources)Adjustment disorder with anxious mood; Translations: [Adjustment disorder with anxiety]Onset: 377597-89-6052KyurbnzNpbflls disorders (20 sources)Anxiety; Translations: [Anxiety disorder, unspecified]Onset: 376455-67-7449XlvqvsdKvvadk (20 sources)Mild intermittent asthma, uncomplicated; Translations: [Asthma] Onset: 369957-52-3574RxlnnynDjljenm tract disease (3 sources)Calculus of gallbladder without cholecystitis without obstruction; Translations: [Gallbladder calculus with acute cholecystitis and no obstruction] Onset: 994529-82-6904CyacendlUggnhrqrhegss of surgical procedures or medical care (20 sources)Post-gastrointestinal tract surgery malnutrition; Translations: [Postsurgical malabsorption, not elsewhere classified]Onset: 12-30-2024 45-43-2565ShcplidCtkfkqrrgywxn and procreative management (5 sources)Encounter for sterilization; Translations: [Encounter for removal of intrauterine contraceptive device]Onset: 14-80-4113GzbgxzfnLrugetgvbj disorders (20 sources)Gastroesophageal reflux disease; Translations: [Gastro-esophageal reflux disease without esophagitis]Onset: 675344-20-0096TgxatatBzohigmpx hypertension (20 sources)Essential hypertension; Translations: [Essential (primary) hypertension]Onset: 071008-20-7825OpwdwriFqthf of unknown origin (2 sources)Fever; Translations: [Fever, unspecified]60-32-7703Pivygyfv Genitourinary symptoms and ill-defined conditions (3 sources)Personal history of urinary (tract) infections; Translations: [Dysuria]Onset: 265343-12-9670QxixlgjjNyhfruocbbci complicating ; childbirth and the puerperium (7 sources)Pre-eclampsia added to pre-existing hypertension; Translations: [Pre- existing hypertension with pre-eclampsia, unspecified trimester]Onset: 873053-25-9027IisunoeChtubzzvflxqk and screening for infectious disease (5 sources)Encounter for screening for human papillomavirus (HPV); Translations: [Exposure to sexually transmissible disorder]Onset: 001586-76-1055Ilmusumo Influenza (2 sources)Influenza due to Influenza A virus; Translations: [Influenza due to other identified influenza virus with other respiratory manifestations] 77-09-1097BwpjjysaLjvuzxxio disorders (20 sources)Excessive and frequent menstruation with regular cycle; Translations: [Irregular periods]Onset: 17-51-1839CimrfoaRjkq disorders (20 sources)Depressive disorder; Translations: [Depression]Onset: 06-13-2019 ChronicNutritional deficiencies (3 sources)Vitamin D deficiency; Translations: [Vitamin D deficiency, unspecified]93-09-3257OlmwyfwHrjoo aftercare (1 source)Other rn long term care (current) drug therapy; Translations: [OTH RETIREMENT CURRENT DRUG THERAPY]Onset: 29-61-0799DyckzkpoGnpcs complications of ; puerperium affecting management of mother (1 source)Obesity complicating childbirth; Translations: [OBESITY COMPLICATING CHILDBIRTH]Onset: 30-79-9531XarrnmkBqsac complications of (3 sources)Maternal obesity complicating , childbirth and the puerperium, antepartum; Translations: [Obesity complicating , unspecified trimester]69-40-7409TxwgzyiTiljy complications of (1 source)Obesity complicating , unspecified trimester; Translations: [Obesity complicating , unspecified trimester]Onset: 55-58-3423Ptfhmpz Other complications of (3 sources)History of pre-eclampsia; Translations: [Supervision of with other poor reproductive or obstetric history, second trimester]05-29-2025 EpisodicOther complications of (4 sources)Supervision of with other poor reproductive or obstetric history, second trimester; Translations: [ with other poor obstetric history]Onset: 005307-52-0912CbmqkxoaWkush complications of (3 sources)History of gestational diabetes mellitus; Translations: [Supervision of with other poor reproductive or obstetric history, unspecified trimester]82-29-1531HpbysiyhGeqks complications of (3 sources)Depressive disorder in mother complicating ; Translations: [Other mental disorders complicating , unspecified trimester]05-29-2025 EpisodicOther complications of (3 sources)Other mental disorders complicating , unspecified trimester; Translations: [Mental disorders of mother, antepartum condition or complication] Onset: 356365-19-6715NzbhlugoHbwgs complications of (1 source)Bariatric surgery status complicating , second trimester; Translations: [Bariatric surgerystatus complicating , second trimester] Onset: 49-69-6416NgabpcdiGzfox complications of (1 source)Supervision of with other poor reproductive or obstetric history, unspecified trimester; Translations: [Supervision of with other poor reproductive or obstetric history, unspecified trimester]Onset: 57-92-0366McgsjgxzDwxxn complications of (1 source)Other specified related conditions, unspecified trimester; Translations: [Other specifiedpregnancy related conditions, unspecified trimester]Onset: 61-42-7802XcehfygiSwmca endocrine disorders (20 sources)Polycystic ovary syndrome; Translations: [Polycystic ovarian syndrome]Onset: 328490-51-3990LhvmbohEdjau female genital disorders (2 sources)Vaginal discharge; Translations: [Other specified noninflammatory disorders of vagina]45-32-9449HcwyrjrkFwqog gastrointestinal disorders (5 sources)History of bariatric surgical procedure; Translations: [Bariatric surgery status]65-99-9408EsvmwltwWwprq hematologic conditions (2 sources)History of anemia; Translations: [Personal history of diseases of the blood and blood-forming organs and certain disorders involving the immune mechanism]10-73-8939BhtfpyxeHmgqt lower respiratory disease (2 sources)Dyspnea; Translations: [Shortness of breath]Onset: 04-14-8421Ooibtquk Other nutritional; endocrine; and metabolic disorders (20 sources)Severe obesity; Translations: [Morbid (severe) obesity due to excess calories]Onset: 57-13-9152MemwbtoKltnr nutritional; endocrine; and metabolic disorders (2 sources)Morbid (severe) obesity due to excess calories; Translations: [MORBID SEVERE OBES D/T EXCESS KALEY]Onset: 58-99-5016BctmpirWvqol nutritional; endocrine; and metabolic disorders (20 sources)Body mass index 40+ - severely obese; Translations: [Morbid (severe) obesity due to excess calories]Onset: 340205-56-1466AzkqvhgMlzyh nutritional; endocrine; and metabolic disorders (8 sources)Morbid obesity; Translations: [Morbid (severe) obesity due to excess calories]31-73-3896WksutivXgoun and delivery including normal (11 sources)Single live ; Translations: []Onset: 11-28-2021 27-41-2704OlhlbkqjXqlkk screening for suspected conditions (not mental disorders or infectious disease) (13 sources)Encounter for screening for malignant neoplasm of cervix; Translations: [Patient encounter status]Onset: 17-91-8995QhyecehcLswww upper respiratory disease (20 sources)Allergic rhinitis due to pollen; Translations: [Allergic rhinitis due to pollen]Onset: 248627-55-8115PabxvbmQvgryb media and related conditions (2 sources)Acute non-suppurative otitis media - serous; Translations: [Acute serous otitis media, left ear]49-52-0338VqsqoixuSxdfnja cyst (4 sources)Unspecified ovarian cyst, right side; Translations: [UNSPECIFIED OVARIAN CYST RIGHT SIDE]Onset: 87-14-5627TudblhwjXdpwmgkx codes; unclassified (2 sources)Obstructive sleep apnea (adult) (pediatric); Translations: [Obstructive sleep apnea (adult) (pediatric)]Onset: 54-30-8139XeuvjfhHtxdeznh codes; unclassified (3 sources)Sleep apnea; Translations: [Sleep apnea, unspecified]Onset: 024675-39-2710VwoewdlBxwvbqrd codes; unclassified (20 sources)Obstructive sleep apnea syndrome; Translations: [Obstructive sleep apnea (adult) (pediatric)]Onset: 294624-96-7002DfzijzvDwhjorig codes; unclassified (2 sources)Personal history of other specified conditions; Translations: [PERSONAL HISTORY OTH SPEC CONDITION]Onset: 21-20-2258UokvgbfbMoifgjyl codes; unclassified (2 sources)Gestation period, 14 weeks; Translations: [14 weeks gestation of ]54-70-8708QguqofarBhmjijiu codes; unclassified (2 sources)Gestation period, 17 weeks; Translations: [17 weeks gestation of ]77-44-8031DreawfkdBijhpsnw codes; unclassified (4 sources)Gestation period, 20 weeks; Translations: [20 weeks gestation of ]44-30-8730QxdbvdnfCznltkmk codes; unclassified (4 sources)H/O: endocrine disorder; Translations: [Personal history of other specified conditions]28-49-2556KnuqukmyLlndelwm codes; unclassified (2 sources)Gestation period, 21 weeks; Translations: [21 weeks gestation of ]55-67-4608BhjnzodiXhxxaykx codes; unclassified (1 source)Personal history of other complications of , childbirth and the puerperium; Translations: [Personal history of other complications of , childbirth and the puerperium]Onset: 82-04-6935SyrnephgCcnbhkyb codes; unclassified (1 source)20 weeks gestation of ; Translations: [20 weeks gestation of ]Onset: 35-97-4288RkfaeqrnRvnaxtfn codes; unclassified (2 sources)Gestation period, 23 weeks; Translations: [23 weeks gestation of ]21-78-8729JubllnouIidghxj disorders (20 sources)Thyroid nodule; Translations: [Nontoxic single thyroid nodule]Onset: 47-08-3694CslotywRllcitjbkgew (1 source)PERSONAL HISTORY OF COVID-19; Translations: [PERSONAL HISTORY OF COVID-19]Onset: 87-39-9744Gnqgvqtrcuoi (1 source)CONTACT W/AND (SUSP) EXPOS COVID-19; Translations: [CONTACT W/AND (SUSP) EXPOS COVID-19]Onset: 52-46-0225Myzqfpshdjkx (20 sources)Patient on antidepressant monitoring planOnset: 251101-62-5346 Unclassified (20 sources)Baseline PHQ-9Onset: 598907-52-1789Vkgvmlbwdfow (1 source)Hx PEOnset: 04-70-6530Ijntncbyfqfh (1 source)InjectionOnset: 60-69-3323Aetxhivgpfaa (1 source)Abdominal pain of multiple sites; Translations: [Abdominal pain of multiple sites]Onset: 65-74-6569Othykdusbjfw (1 source)Low back pain, unspecified; Translations: [Low back pain, unspecified] Onset: 12-15-2024 Past or Other Problems Problem ClassificationProblemDateDocumented DateEpisodic/Chronic Administrative/social admission (9 sources)Patient encounter status; Translations: [Dietary counseling and surveillance]81-67-5395VnvbscfvDfoqtsktuj and other anemia (20 sources)Anemia; Translations: [Anemia, unspecified]Onset: 43-47-7969Uiykagbi Deficiency and other anemia (20 sources)Iron deficiency anemia; Translations: [Iron deficiency anemia, unspecified]Onset: 895550-86-2384FzncutdpSouvorro or abnormal glucose tolerance complicating ; childbirth; or the puerperium (20 sources)Gestational diabetes mellitus; Translations: [Gestational diabetes mellitus in , unspecified control]Onset: 12-09-2018 Resolved: 64-18-3472NjbxjeysSjevtbzw; including migraine (20 sources)Frequent headache; Translations: [Frequent headaches]Onset: 068157-75-2851DpyfyvkpAltqsagotxra complicating ; childbirth and the puerperium (20 sources) pre-eclampsia; Translations: [Unspecified pre-eclampsia, complicating the puerperium]Onset: 11-23-2018 Resolved: 58-27-3859AtmbdyljBtic disorders (20 sources)Mood disorders; Translations: [Depression, unspecified]Onset: 12-24-2018 Resolved: Nausea and vomiting (20 sources)Nausea and vomiting; Translations: [Nausea with vomiting, unspecified]Onset: 315494-06-9731IykdibwnZipymlkygto deficiencies (5 sources)Cobalamin deficiency; Translations: [Deficiency of other specified B group vitamins]Onset: 416193-49-3872OilsjlreMwcqg endocrine disorders (20 sources)Disorder of endocrine system; Translations: [Endocrine disorder, unspecified]Onset: 929890-37-0091AuezevnzNvney gastrointestinal disorders (2 sources)Constipation; Translations: [Constipation, unspecified]2024 EpisodicOther gastrointestinal disorders (20 sources)History of bypass of stomach; Translations: [Bariatric surgery status]Onset: 654479-17-2968KerfhgguAhqwl gastrointestinal disorders (2 sources)Bariatric surgery status; Translations: [Bariatric surgery status] Onset: 11-73-5025HtuinuvpDtgxk hematologic conditions (2 sources)Personal history of diseases of the blood and blood-forming organs and certain disorders involving the immune mechanism; Translations: [Personal history of diseases of the blood and blood-forming organs and certain disorders involving the immune mechanism]Onset: 46-99-4211ZxlcrrypJymem nervous system disorders (1 source)Acute postoperative pain; Translations: [Other acute postprocedural pain]09-11-5329EqtuprwwZvsgguxhp (except that caused by tuberculosis or sexually transmitted disease) (20 sources)Pneumonia; Translations: [Pneumonia, unspecified organism]Onset: 07-30-2022 Resolved: 974936-31-0269YruqgshwWgaoqoosd heart disease (20 sources)Acute pulmonary embolism; Translations: [Other pulmonary embolism without acute cor pulmonale]Onset: 64-50-1857EdhtiwztOpjaitwd codes; unclassified (20 sources)FH: Diabetes in ; Translations: [Family history of diabetes mellitus]Onset: 71-01-6744BlentpzuBmjtfoso codes; unclassified (1 source)39 weeks gestation of ; Translations: [39 WEEKS GESTATION OF ]Onset: 98-85-2187VepxfbigVmgvnajn codes; unclassified (1 source)38 weeks gestation of ; Translations: [38 WEEKS GESTATION OF ]Onset: 95-64-4167FvxxrnhoFetjvvoc codes; unclassified (20 sources)Amnesia; Translations: [Other amnesia]Onset: 759934-07-8167 EpisodicResidual codes; unclassified (20 sources)FH: Thrombosis; Translations: [Family history of ischemic heart disease and other diseases of the circulatory system]Onset: EpisodicResidual codes; unclassified (1 source)Procedure not done; Translations: [Procedure and treatment not carried out, unspecified reason]51-10-2397ThkbdpgnMojwajrnekv; intervertebral disc disorders; other back problems (2 sources)BackacheOnset: 80-58-7124MdugnoloHjcvnhvaicgg (1 source)History of gestational diabetes in prior , currently in second qjvxqxomu87-19-9328Nvxxiumggizr (1 source)Anxiety disorder affecting , euxihighrm07-23-2946Zvstgfj tract infections (20 sources)Urinary tract infectious disease; Translations: [Urinary tract infection, site not specified]Onset: 475678-88-8673Ilqfvnph Results Test NameValueInterpretationReference RangeFacilityCBC WITH AUTO DIFFERENTIALon 85-22-8077NXCCRXOAA ABSOLUTE COUNT (10*3/UL) BY AUTOMATED COUNT0.0 10*3/uLNormal 0.0-0.2PKindred Hospital LimaComment on above:Performed By: #### CBCA, FEPR, LIVR, 2276-4, 2131-9, 4-8, 17273-7 #### [facility] ([id number]) [address] [place] [address], [address] [place] [address] #### 12165-7 #### [facility] ([id number]) [address] [place] [address] 80783NBKVPVMXH RELATIVE PERCENT BY AUTOMATED COUNT0.4 %Normal [facility] CenterComment on above:Performed By: #### CBCA, FEPR, LIVR, 6-4, 9, 2283-8, 24063-8 #### [facility] ([id number]) [address] [place] [address], [address] [place] [address] #### 25766-5 #### [facility] ([id number]) [address] [place] [address] 91772ZEABLSOKYHE DIFFERENTIAL TYPEAUTOMATED DIFFERENTIALNormal [facility] CenterComment on above:Performed By: #### CBCA, FEPR, LIVR, 6-4, 9, 4-8, 75749-8 #### [facility] ([id number]) [address] [place] [address], [address] [place] [address] #### 03533-2 #### [facility] ([id number]) [address] [place] [address] 50893Eyqkjxihfnp (Bld) [#/Vol]0.1 10*3/uLNormal0.0-0.4ProMedica Marquette HospitalComment on above:Performed By: #### CBCA, FEPR, LIVR, 6-4, 9, 2284-04, 33694-6 #### [facility] ([id number]) [address] [facility], [address] [place] [address] #### 54386-5 #### [facility] ([id number]) [address] [place] [address] 04472AWHFCDPJMYT RELATIVE PERCENT BY AUTOMATED COUNT1.1 %Normal [facility] Medical CenterComment on above:Performed By: #### CBCA, FEPR, LIVR, 2275-, 2132-05, 2284-04, 71860-9 #### [facility] ([id number]) [address] [facility], [facility] [address] [place] [address] #### 64823-1 #### [facility] ([id number]) [address] [place] [address] 82420Xlmcnknbdjh distribution width (RBC) [Ratio]13.0 %Brvsii98.5-15 [facility] Medical CenterComment on above:Performed By: #### CBCA, FEPR, LIVR, 2275-4, 2132-05, 2284-04, 65091-7 #### [facility] ([id number]) [address] [facility], [address] [place] [address] #### 16985-4 #### [facility] ([id number]) [address] [place] [address] 53736Hwiqnymnkc (Bld) [Volume fraction]29.9 %Esq72-07OesFouhwdTrinity Health System Twin City Medical CenterComment on above:Performed By: #### CBCA, FEPR, LIVR, 6-4, 2132-05, 2284-04, 11870-3 #### [facility] ([id number]) [address] [facility], [address] [place] [address] #### 99914-0 #### [facility] ([id number]) [address] [place] [address] 69479Rgokgymhqj (Bld) [Mass/Vol]10.6 g/dLLow11.7-15.5PKindred Hospital LimaComment on above:Performed By: #### CBCA, FEPR, LIVR, 6-4, 2-9, 4-8, 88944-9 #### [facility] ([id number]) [address], [address] [place] [address] #### 47340-4 #### [facility] ([id number]) [address] [place] [address] 02097CGMDUZSQTIB ABSOLUTE COUNT (10*3/UL) BY AUTOMATED COUNT2.4 10*3/uLNormal1.0-3.5PKindred Hospital LimaComment on above:Performed By: #### CBCA, FEPR, LIVR, 6-4, 2131-9, 4-8, 73695-4 #### [facility] ([id number]) [address] [facility], [address] [place] [address] #### 95125-9 #### [facility] ([id number]) [address] [place] [address] 38711EDOEFDPJCER RELATIVE PERCENT BY AUTOMATED COUNT24.9 %Normal Pro[facility]icSonora Regional Medical CenterComment on above:Performed By: #### CBCA, FEPR, LIVR, 6-4, 2131-9, 4-8, 18637-0 #### [facility] ([id number]) [address], [address] [place] [address] #### 94803-4 #### [facility] ([id number]) [address] [place] [address] 05592AFK (RBC) [Entitic mass]31.3 vlCjdepc34-91GfkQiskil Marquette HospitalComment on above:Performed By: #### CBCA, FEPR, LIVR, 6-4, 9, 2283-8, 78098-2 #### [facility] ([id number]) [address], [address] [place] [address] #### 65216-8 #### [facility] ([id number]) [address] [place] [address] 16170BWCN (RBC) [Mass/Vol]35.3 g/hLGvujcp76-68YqdQbwlvlThe Hospitals Of Providence Sierra CampusComment on above:Performed By: #### CBCA, FEPR, LIVR, 6-4, 2132-05, 2284-04, 71002-7 #### [facility] ([id number]) [address], [address] [place] [address] #### 70762-1 #### [facility] ([id number]) [address] [place] [address] 67522CVI (RBC) [Entitic vol]88 vVOfcptu50-857WyxQtauof Fremont HospitalComment on above:Performed By: #### CBCA, FEPR, LIVR, 6-4, 2132-05, 2284-04, 31566-8 #### [facility] ([id number]) [address], [address] [place] [address] #### 39831-6 #### [facility] ([id number]) [address] [place] [address] 64211PBJLNHEAG ABSOLUTE COUNT (10*3/UL) BY AUTOMATED COUNT0.4 10*3/uLNormal0.0-0.9ProThe Hospitals Of Providence Sierra CampusComment on above:Performed By: #### CBCA, FEPR, LIVR, 6-4, 9, 8, 01943-2 #### [facility] ([id number]) [address], [address] [place] [address] #### 55090-3 #### [facility] ([id number]) [address] [place] [address] 26488NZWZFNCFM RELATIVE PERCENT BY AUTOMATED COUNT4.0 %Normal [facility] CenterComment on above:Performed By: #### CBCA, FEPR, LIVR, 2276-4, 2-9, 2284-8, 02592-0 #### [facility] ([id number]) [address], [address] [place] [address] #### 33318-4 #### [facility] ([id number]) [address] [place] [address] 29694WVYOOHEYQBZ ABSOLUTE COUNT BY AUTOMATED COUNT6.8 10*3/uLHigh 1.5-6.6ProMedica Los Alamitos Medical CenterComment on above:Performed By: #### CBCA, FEPR, LIVR, 6-4, 2131-9, 4-8, 38034-0 #### [facility] ([id number]) [address], [address] [place] [address] #### 73257-3 #### [facility] ([id number]) [address] [place] [address] 08918TNSLVIQODGH RELATIVE PERCENT BY AUTOMATED COUNT69.6 %Normal [facility] CenterComment on above:Performed By: #### CBCA, FEPR, LIVR, 6-4, 2131-9, 4-8, 28879-4 #### [facility] ([id number]) [address], [address] [place] [address] #### 80768-8 #### [facility] ([id number]) [address] [place] [address] 83945Zncascvl mean volume (Bld) [Entitic vol]7.8 fLNormal7-12 ProMMemorial Medical CenterComment on above:Performed By: #### CBCA, FEPR, LIVR, 2276-4, 2-9, 2284-8, 66285-9 #### [facility] ([id number]) [address], [address] [place] [address] #### 19664-7 #### [facility] ([id number]) [address] [place] [address] 42845Vlanyqdpn (Bld) [#/Vol]244 10*3/aMBexicq060-896JztJqlpik Fremont HospitalComment on above:Performed By: #### CBCA, FEPR, LIVR, 2276-4, 2131-9, 4-8, 19450-6 #### [facility] ([id number]) [address], [address] [place] [address] #### 75062-7 #### [facility] ([id number]) [address] [place] [address] 63999MKG COUNT3.38 X10E12/LLow3.8-5.2PKindred Hospital Lima Comment on above:Performed By: #### CBCA, FEPR, LIVR, 2276-4, 2131-9, 4-8, 07840-8 #### [facility] ([id number]) [address], [address] [place] [address] #### 89282-6 #### [facility] ([id number]) [address] [place] [address] 07392CRF (Bld) [#/Vol]9.7 10*3/uLNormal4-11ProThe Hospitals Of Providence Sierra CampusComment on above:Performed By: #### CBCA, FEPR, LIVR, 2276-4, 2-9, 2284-8, 06090-5 #### [facility] ([id number]) [address], [address] [place] [address] #### 66921-8 #### [facility] ([id number]) [address] [place], [place] [address]IPEHRJCDVEZWX METABOLIC PANELon 27-79-3879Iqtikic [Mass/Vol]3.1 g/dLLow3.2-5.3PKindred Hospital LimaComment on above:Performed By: #### CBCA, FEPR, LIVR, 2276-4, 2131-9, 4-8, 58118-1 #### [facility] ([id number]) [address], [address] [place] [address] #### 19134-1 #### [facility] ([id number]) [address] [place] [address] 43584UTM [Catalytic activity/Vol]62 U/XTsgcrv46-332WrcZkanjkThe Hospitals Of Providence Sierra CampusComment on above:Performed By: #### CBCA, FEPR, LIVR, 6-4, 2131-9, 4-8, 28034-8 #### [facility] ([id number]) [address], [address] [place] [address] #### 76746-1 #### [facility] ([id number]) [address] [place] [address] 67663XAA [Catalytic activity/Vol]16 U/LNormal<=31PKindred Hospital LimaComment on above:Performed By: #### CBCA, FEPR, LIVR, 6-4, 2131-9, 4-8, 28949-0 #### [facility] ([id number]) [address], [address] [place] [address] #### 79514-8 #### [facility] ([id number]) [address] [place] [address] 07587Ayfjb gap [Moles/Vol]8 mmol/LNormal5-15ProMarshall Medical Center Southmont HospitalComment on above:Performed By: #### CBCA, FEPR, LIVR, 6-4, 2132-05, 2284-04, 16404-0 #### [facility] ([id number]) [address], [address] [place] [address] #### 21150-8 #### [facility] ([id number]) [address] [place] [address] 41335HMI [Catalytic activity/Vol]11 U/LNormal<=41ProThe Hospitals Of Providence Sierra CampusComment on above:Performed By: #### CBCA, FEPR, LIVR, 2275-4, 2132-05, 2284-04, 45323-1 #### [facility] ([id number]) [address], [address] [place] [address] #### 63340-1 #### [facility] ([id number]) [address] [place] [address] 77087Wwqrrcbba [Mass/Vol]0.5 mg/dLNormal0.3-1.2PKindred Hospital LimaComment on above:Performed By: #### CBCA, FEPR, LIVR, 6-4, 2132-05, 2284-04, 36412-6 #### [facility] ([id number]) [address], [address] [place] [address] #### 01488-6 #### [facility] ([id number]) [address] [place] [address] 63049Jlrcaxq [Mass/Vol]8.7 mg/dLNormal8.5-10.5PKindred Hospital LimaComment on above:Performed By: #### CBCA, FEPR, LIVR, 6-4, 2132-05, 2284-04, 49404-0 #### [facility] ([id number]) [address], [address] [place] [address] #### 38482-4 #### [facility] ([id number]) [address] [place] [address] 09692Icabcimr [Moles/Vol]108 mmol/UGdytvf37-659OfuOfjqdxThe Hospitals Of Providence Sierra CampusComment on above:Performed By: #### CBCA, FEPR, LIVR, 6-4, 9, 4-8, 37171-5 #### [facility] ([id number]) [address], [address] [place] [address] #### 05018-8 #### [facility] ([id number]) [address] [place] [address] 89646OS9 [Moles/Vol]20 mmol/DAzi16-15UrzRxfxxqKindred Hospital Lima Comment on above:Performed By: #### CBCA, FEPR, LIVR, 6-4, 9, 2284-04, 89188-8 #### [facility] ([id number]) [address], [address] [place] [address] #### 01873-6 #### [facility] ([id number]) [address] [place] [address] 67887Prjzswagsv [Mass/Vol]0.44 mg/dLNormal0.40-1.00[facility] Medical CenterComment on above:Result Comment: METHOD TRACEABLE TO IDMS STANDARD Performed By: #### CBCA, FEPR, LIVR, 6-4, 9, 4-8, 01759-1 #### [facility] ([id number]) [address], [address] [place] [address] #### 82445-8 #### [facility] ([id number]) [address] [place] [address] 92486ZFZZ (CKD-EPI) NON-RACE DEPENDENT>^90Normal>=60ProThe Hospitals Of Providence Sierra CampusComment on above:Result Comment: eGFR not reported due to non- numeric value for Creatinine. Reported eGFR is based on the CKD-EPI 2020 equation that does not use a race coefficient.Performed By: #### CBCA, FEPR, LIVR, 6-4, 2132-05, 2284-04, 07835-1 #### [facility] ([id number]) [address] [facility], [facility] [address] [place] [address] #### 17325-5 #### [facility] ([id number]) [address] [place] [address] 65013Nagdrps [Mass/Vol]97 mg/qPIrlhfj54-94FizWgigvaTrinity Health System [facility] Center Comment on above:Performed By: #### CBCA, FEPR, LIVR, 2275-12, 2132-05, 2284-04, 97631-1 #### [facility] ([id number]) [address] [facility], [address] [place] [address] #### 40132-2 #### [facility] ([id number]) [address] [place] [address] 02446Fhxcndebi [Moles/Vol]3.9 mmol/LNormal3.5-5.0ProThe Hospitals Of Providence Sierra CampusComment on above:Performed By: #### CBCA, FEPR, LIVR, 2275-12, 2132-05, 2284-04, 05069-5 #### [facility] ([id number]) [address] [facility], [address] [place] [address] #### 04857-4 #### [facility] ([id number]) [address] [place] [address] 89311Rolmnkw [Mass/Vol]6.3 g/dLNormal6.0-8.0ProThe Hospitals Of Providence Sierra CampusComment on above:Performed By: #### CBCA, FEPR, LIVR, 2275-, 2132-05, 2284-8, 73100-8 #### [facility] ([id number]) [address], [address] [place] [address] #### 61608-5 #### [facility] ([id number]) [address] [place] [address] 94449Japrlu [Moles/Vol]136 mmol/STqzmxu292-366ZofNohglv [facility]remont HospitalComment on above:Performed By: #### CBCA, FEPR, LIVR, 2276-4, 2132-9, 2284-8, 86049-1 #### [facility] ([id number]) [address] [facility], [address] [place] [address] #### 11806-9 #### [facility] ([id number]) [address] [place] [address] 49863Dabr nitrogen [Mass/Vol]9 mg/dLNormal5-23ProThe Hospitals Of Providence Sierra CampusComment on above:Performed By: #### CBCA, FEPR, LIVR, 2276-4, 2132-9, 2284-8, 62923-9 #### [facility] ([id number]) [address], [address] [place] [address] #### 14056-7 #### [facility] ([id number]) [address] [place] [address] [id number] CTA CHESTon 26-37-3830ZS CTA CHESTCT CTA CHEST Clinical History: History of pulmonary embolism. CTA chest: 06/23/2025 Comparison: 07/30/2022 Procedure: Axial images were obtained through the chest following 100 mL Omnipaque 350 intravenously. Three-dimensional reconstructions were performed at a separate workstation under concurrent physician supervision. All CT scans at this facility use [...] by Jovanni Gallegos MD on 06/23/2025 8:49 AMNormalTrinity Health System Twin City Medical CenterLIPASEon 77-78-4152Nohfib [Catalytic activity/Vol]25 U/THbdcsf60-21 [facility] Medical CenterComment on above:Performed By: #### CBCA, FEPR, LIVR, 6-4, 9, 2283-8, 48896-2 #### [facility] ([id number]) [address] [place] [address], [address] [place] [address] #### 37603-8 #### [facility] ([id number]) [address] [place] [address] 07483EUIVVRJQBMio 62-07-7599Nnwuevugo Ql (U)NegativeNormalNegative [facility] Medical CenterComment on above:Performed By: #### CBCA, FEPR, LIVR, 6-4, 9, 4-8, 74793-2 #### [facility] ([id number]) [address] [place] [address], [address] [place] [address] #### 81471-3 #### [facility] ([id number]) [address] [place] [address] 29919KSRJS/HGBNegativeNormalNegativeTrinity Health System [facility] Center Comment on above:Performed By: #### CBCA, FEPR, LIVR, 6-4, 9, 4-8, 54772-3 #### [facility] ([id number]) [address] [place] [address], [address] [place] [address] #### 43971-7 #### [facility] ([id number]) [address] [place] [address] 38359Lzcjj (U)YellowNormalYellowTrinity Health System Twin City Medical CenterComment on above:Performed By: #### CBCA, FEPR, LIVR, 6-4, 2131-9, 4-8, 86008-0 #### [facility] ([id number]) [address] [place] [address], [address] [place] [address] #### 40834-2 #### [facility] ([id number]) [address] [place] [address] 75958Vgcjguc Ql (U)NegativeNormalNegative, 250 mg/dLProThe Hospitals Of Providence Sierra CampusComment on above:Performed By: #### CBCA, FEPR, LIVR, 6-4, 2131-9, 2283-8, 54985-5 #### [facility] ([id number]) [address] [place] [address], [address] [place] [address] #### 51326-8 #### [facility] ([id number]) [address] [place] [address] 94377Dnsmbua Ql (U)NegativeNormalNegativeTrinity Health System [facility] Comment on above:Performed By: #### CBCA, FEPR, LIVR, 6-4, 2131-9, 2283-8, 22912-7 #### [facility] ([id number]) [address] [place] [address], [address] [place] [address] #### 75486-2 #### [facility] ([id number]) [address] [place] [address] 02595Bphkjtfhs esterase Test strip Ql (U)NegativeNormalNegative [facility] CenterComment on above:Performed By: #### CBCA, FEPR, LIVR, 2276-4, 2131-9, 4-8, 39311-1 #### [facility] ([id number]) [address], [address] [place] [address] #### 95130-0 #### [facility] ([id number]) [address] [place] [address] 11257Wqbwdrj Ql (U)NegativeNormalNegDoctors Hospital Comment on above:Performed By: #### CBCA, FEPR, LIVR, 6-4, 2131-9, 2283-8, 51202-3 #### [facility] ([id number]) [address] [facility], [address] [place] [address] #### 34913-2 #### [facility] ([id number]) [address] [place] [address] 19860RK,URINE6.2Dgwfhh7.0-8.5Pro[facility] Medical CenterComment on above:Performed By: #### CBCA, FEPR, LIVR, 6-4, 2131-9, 2283-8, 62335-2 #### [facility] ([id number]) [address] [facility], [address] [place] [address] #### 50981-6 #### [facility] ([id number]) [address] [place] [address] 54032Rwewqdp Ql (U)NegativeNormalNegDoctors Hospital Comment on above:Performed By: #### CBCA, FEPR, LIVR, 6-4, 2131-9, 4-8, 91622-6 #### [facility] ([id number]) [address], [address] [place] [address] #### 66521-1 #### [facility] ([id number]) [address] [place] [address] 74829Bubgojit gravity (U) [Rel density]1.882Cjuzee5.003-1.035 [facility] Medical CenterComment on above:Performed By: #### CBCA, FEPR, LIVR, 2275-12, 2132-05, 2284-04, 62457-8 #### [facility] ([id number]) [address] [facility], [address] [place] [address] #### 33634-2 #### [facility] ([id number]) [address] [place] [address] 80582NELUKPWGKOxdeyQwmojaMhrmxDbrSnmyao [facility]remont HospitalComment on above:Performed By: #### CBCA, FEPR, LIVR, 2275-12, 2132-05, 2284-04, 47938-8 #### [facility] ([id number]) [address] [facility] [facility], [address] [place] [address] #### 66804-5 #### [facility] ([id number]) [address] [place] [address] [id number] eu/dLNormal0.2 eu/dL, 1.0 eu/dLTrinity Health System Twin City Medical CenterComment on above:Performed By: #### CBCA, FEPR, LIVR, 2275-12, 2132-05, 2284-04, 00803-4 #### [facility] ([id number]) [address] [facility], [address] [place] [address] #### 44997-5 #### [facility] ([id number]) [address] [place] [address] [id number] WITH AUTO DIFFERENTIALon [id number] ABSOLUTE COUNT (10*3/UL) BY AUTOMATED COUNT0.1 10*3/uLNormal0.0-0.2[facility] Comment on above:Performed By: #### CBCA, FEPR, LIVR, 4, 9, 2283-8, 06175-1 #### [facility] ([id number]) [address], [address] [place] [address] #### 52682-6 #### [facility] ([id number]) [address] [place] [address] [id number] RELATIVE PERCENT BY AUTOMATED COUNT1.3 %Normal [facility] City Medical CenterComment on above:Performed By: #### CBCA, FEPR, LIVR, 6-4, 9, 2283-8, 30125-4 #### [facility] ([id number]) [address] [facility], [address] [place] [address] #### 15720-2 #### [facility] ([id number]) [address] [place] [address] [id number] DIFFERENTIAL TYPEAUTOMATED DIFFERENTIALNormal [facility] CenterComment on above:Performed By: #### CBCA, FEPR, LIVR, 6-4, 9, 2284-04, 07224-9 #### [facility] ([id number]) [address] [facility], [address] [place] [address] #### 08237-5 #### [facility] ([id number]) [address] [place] [address] [id number] (Bld) [#/Vol]0.1 10*3/uLNormal0.0-0.4[facility] CenterCombeaumont hospital on above:Performed By: #### CBCA, FEPR, LIVR, 6-4, 9, 2284-04, 62093-4 #### [facility] ([id number]) [address], [address] [place] [address] #### 53713-0 #### [facility] ([id number]) [address] [place] [address] [id number] RELATIVE PERCENT BY AUTOMATED COUNT1.3 %Normal [facility] CenterComment on above:Performed By: #### CBCA, FEPR, LIVR, 6-4, 9, 8, 01216-5 #### [facility] ([id number]) [address] [place] [address], [address] [place] [address] #### 25824-6 #### [facility] ([id number]) [address] [place] [address] [id number] distribution width (RBC) [Ratio]13.4 %Eeuael77.5-15 [facility] Medical CenterComment on above:Performed By: #### CBCA, FEPR, LIVR, 2275-12, 2132-05, 2284-04, 78527-2 #### [facility] ([id number]) [address] [place] [address], [address] [place] [address] #### 05475-4 #### [facility] ([id number]) [address] [place] [address] [id number] (Bld) [Volume fraction]32.5 %Sth71-71TjsAqagbv [facility] Medical CenterComment on above:Performed By: #### CBCA, FEPR, LIVR, 2275-12, 2132-05, 2284-04, 91722-1 #### [facility] ([id number]) [address] [place] [address], [address] [place] [address] #### 89049-6 #### [facility] ([id number]) [address] [place] [address] 99635Mreaxsyfqq (Bld) [Mass/Vol]11.4 g/dLLow11.7-15.5[facility] CenterComment on above:Performed By: #### CBCA, FEPR, LIVR, 2275-, 2132-05, 2284-04, 70267-5 #### [facility] ([id number]) [address], [address] [place] [address] #### 70165-3 #### [facility] ([id number]) [address] [place] [address] [id number] ABSOLUTE COUNT (10*3/UL) BY AUTOMATED COUNT3.1 10*3/uLNormal1.0-3.5[facility] CenterComment on above:Performed By: #### CBCA, FEPR, LIVR, 6-, 2132-05, 2284-04, 28258-5 #### [facility] ([id number]) [address] [facility], [address] [place] [address] #### 45321-4 #### [facility] ([id number]) [address] [place] [address] [id number] RELATIVE PERCENT BY AUTOMATED COUNT27.4 %Normal [facility] CenterComment on above:Performed By: #### CBCA, FEPR, LIVR, 2275-12, 2132-05, 2284-04, 57843-0 #### [facility] ([id number]) [address], [address] [place] [address] #### 95850-1 #### [facility] ([id number]) [address] [place] [address] 62861LDK (RBC) [Entitic mass]30.8 upPeyzyf54-26ZowUldojf [facility] Al[facility]itos Medical CenterComment on above:Performed By: #### CBCA, FEPR, LIVR, 2275-, 2132-05, 2284-04, 52726-8 #### [facility] ([id number]) [address], [address] [place] [address] #### 48663-2 #### [facility] ([id number]) [address] [place] [address] 02875BUGM (RBC) [Mass/Vol]35.0 g/mKRohyyv69-34AskOkczlwTrinity Health System Twin City Medical CenterComment on above:Performed By: #### CBCA, FEPR, LIVR, 2275-4, 9, 8, 31097-5 #### [facility] ([id number]) [address], [address] [place] [address] #### 97953-4 #### [facility] ([id number]) [address] [place] [address] 11825KXW (RBC) [Entitic vol]88 gZAueudl51-999IxcSdsvsv [facility]remont HospitalComment on above:Performed By: #### CBCA, FEPR, LIVR, 2275-, 2132-05, 2284-04, 95985-5 #### [facility] ([id number]) [address], [address] [place] [address] #### 41481-1 #### [facility] ([id number]) [address] [place] [address] 53786TMFQSXGOM ABSOLUTE COUNT (10*3/UL) BY AUTOMATED COUNT0.5 10*3/uLNormal0.0-0.9ProThe Hospitals Of Providence Sierra CampusComment on above:Performed By: #### CBCA, FEPR, LIVR, 2275-4, 2132-05, 2284-04, 60564-9 #### [facility] ([id number]) [address], [address] [place] [address] #### 45406-5 #### [facility] ([id number]) [address] [place] [address] 46166ZNCRMZBOE RELATIVE PERCENT BY AUTOMATED COUNT4.5 %Normal [facility] Medical CenterComment on above:Performed By: #### CBCA, FEPR, LIVR, 2275-4, 2132-05, 8, 95884-4 #### [facility] ([id number]) [address], [address] [place] [address] #### 33707-6 #### [facility] ([id number]) [address] [place] [address] 74967SORRBTDBIBX ABSOLUTE COUNT BY AUTOMATED COUNT7.4 10*3/uLHigh 1.5-6.6ProMount Carmel Health Systemca [place] Medical CenterComment on above:Performed By: #### CBCA, FEPR, LIVR, 2275-, 2132-05, 2284-04, 09696-1 #### [facility] ([id number]) [address], [address] [place] [address] #### 97783-1 #### [facility] ([id number]) [address] [place] [address] 63137PEUOSACMIZW RELATIVE PERCENT BY AUTOMATED COUNT65.5 %Normal [facility] Twin City Medical CenterComment on above:Performed By: #### CBCA, FEPR, LIVR, 2275-12, 2132-05, 2284-04, 01026-5 #### [facility] ([id number]) [address], [address] [place] [address] #### 64309-8 #### [facility] ([id number]) [address] [place] [address] 56342Icfkzjnd mean volume (Bld) [Entitic vol]7.6 fLNormal7-12 [facility] Medical CenterComment on above:Performed By: #### CBCA, FEPR, LIVR, 2275-, 2132-05, 2284-04, 14965-0 #### [facility] ([id number]) [address], [address] [place] [address] #### 80988-5 #### [facility] ([id number]) [address] [place] [address] 93312Gmhyjefho (Bld) [#/Vol]262 10*3/dWDlsjzz309-826KgqOyxuztTrinity Health System Twin City Medical CenterComment on above:Performed By: #### CBCA, FEPR, LIVR, 2276-4, 2-9, 2284-8, 00047-8 #### [facility] ([id number]) [address], [address] [place] [address] #### 02030-1 #### [facility] ([id number]) [address] [place] [address] 00682IKL COUNT3.68 X10E12/LLow3.8-5.2PKindred Hospital Lima Comment on above:Performed By: #### CBCA, FEPR, LIVR, 6-4, 2131-9, 4-8, 05183-2 #### [facility] ([id number]) [address], [address] [place] [address] #### 30922-5 #### [facility] ([id number]) [address] [place] [address] 30629BUB (Bld) [#/Vol]11.3 10*3/uLHigh4-11[facility] Comment on above:Performed By: #### CBCA, FEPR, LIVR, 6-4, 2131-9, 4-8, 73669-4 #### [facility] ([id number]) [address], [address] [place] [address] #### 44178-0 #### [facility] ([id number]) [address] [place] [address] 10690UCACDKAENJFYN METABOLIC PANELon 34-29-3614Ejicouo [Mass/Vol]3.0 g/dLLow3.2-5.3PKindred Hospital LimaComment on above:Performed By: #### CBCA, FEPR, LIVR, 2276-4, 2131-9, 2283-8, 33086-3 #### [facility] ([id number]) [address], [address] [place] [address] #### 68194-3 #### [facility] ([id number]) [address] [place] [address] 82978SGW [Catalytic activity/Vol]60 U/DClxzek25-903TgmPqdxvpThe Hospitals Of Providence Sierra CampusComment on above:Performed By: #### CBCA, FEPR, LIVR, 6-4, 9, 2284-04, 07294-7 #### [facility] ([id number]) [address], [address] [place] [address] #### 61942-4 #### [facility] ([id number]) [address] [place] [address] 26705CUU [Catalytic activity/Vol]17 U/LNormal<=31ProMedMorningside HospitalComment on above:Performed By: #### CBCA, FEPR, LIVR, 6-4, 2132-05, 2284-04, 64623-5 #### [facility] ([id number]) [address], [address] [place] [address] #### 88927-7 #### [facility] ([id number]) [address] [place] [address] 75424Bgowa gap [Moles/Vol]8 mmol/LNormal5-15ProThe Hospitals Of Providence Sierra CampusComment on above:Performed By: #### CBCA, FEPR, LIVR, 6-4, 2132-05, 2284-04, 24050-9 #### [facility] ([id number]) [address], [address] [place] [address] #### 97132-5 #### [facility] ([id number]) [address] [place] [address] 20844ZIJ [Catalytic activity/Vol]17 U/LNormal<=41ProThe Hospitals Of Providence Sierra CampusComment on above:Performed By: #### CBCA, FEPR, LIVR, 2275-4, 2132-05, 2284-04, 36101-6 #### [facility] ([id number]) [address] [place] [address], [address] [place] [address] #### 41349-2 #### [facility] ([id number]) [address] [place] [address] 41372Sldjhlkwa [Mass/Vol]0.8 mg/dLNormal0.3-1.2PKindred Hospital LimaComment on above:Performed By: #### CBCA, FEPR, LIVR, 2275-12, 2132-05, 2284-04, 59492-2 #### [facility] ([id number]) [address] [place] [address], [address] [place] [address] #### 34735-9 #### [facility] ([id number]) [address] [place] [address] 64843Jysuapt [Mass/Vol]8.5 mg/dLNormal8.5-10.5PKindred Hospital LimaComment on above:Performed By: #### CBCA, FEPR, LIVR, 2275-12, 2132-05, 2284-04, 99543-9 #### [facility] ([id number]) [address] [place] [address], [address] [place] [address] #### 23214-2 #### [facility] ([id number]) [address] [place] [address] 47552Xajjcazz [Moles/Vol]105 mmol/VKunjvi31-457ZhaQnpkrnThe Hospitals Of Providence Sierra CampusComment on above:Performed By: #### CBCA, FEPR, LIVR, 2275-12, 2132-05, 2284-04, 35711-4 #### [facility] ([id number]) [address], [address] [place] [address] #### 71001-6 #### [facility] ([id number]) [address] [place] [address] 74094LK5 [Moles/Vol]20 mmol/SAos30-90FuxYtmsdpKindred Hospital Lima Comment on above:Performed By: #### CBCA, FEPR, LIVR, 6-4, 9, 8, 17197-7 #### [facility] ([id number]) [address], [address] [place] [address] #### 41363-8 #### [facility] ([id number]) [address] [place] [address] 74701Uxpmhbndag [Mass/Vol]0.54 mg/dLNormal0.40-1.00Tr[facility] Twin City Medical CenterComment on above:Result Comment: METHOD TRACEABLE TO IDMS STANDARD Performed By: #### CBCA, FEPR, LIVR, 6-4, 9, 8, 50954-8 #### [facility] ([id number]) [address], [address] [place] [address] #### 32354-6 #### [facility] ([id number]) [address] [place] [address] 40576BRAY (CKD-EPI) NON-RACE DEPENDENT>^90Normal>=60ProThe Hospitals Of Providence Sierra CampusComment on above:Result Comment: eGFR not reported due to non- numeric value for Creatinine. Reported eGFR is based on the CKD-EPI 2020 equation that does not use a race coefficient.Performed By: #### CBCA, FEPR, LIVR, 2276-4, 2131-9, 4-8, 08752-7 #### [facility] ([id number]) [address], [address] [place] [address] #### 45141-7 #### [facility] ([id number]) [address] [place] [address] 53658Lgbpxdo [Mass/Vol]96 mg/dMKzfjod27-40EelEthgqxThe Hospitals Of Providence [facility] Campus Comment on above:Performed By: #### CBCA, FEPR, LIVR, 6-4, 9, 2284-04, 43925-9 #### [facility] ([id number]) [address], [address] [place] [address] #### 42022-4 #### [facility] ([id number]) [address] [place] [address] 48476Drykarhuv [Moles/Vol]3.6 mmol/LNormal3.5-5.0ProThe Hospitals Of Providence Sierra CampusComment on above:Performed By: #### CBCA, FEPR, LIVR, 6-4, 2132-05, 2284-04, 00499-9 #### [facility] ([id number]) [address], [address] [place] [address] #### 32480-6 #### [facility] ([id number]) [address] [place] [address] 21726Heomtab [Mass/Vol]6.3 g/dLNormal6.0-8.0ProThe Hospitals Of Providence Sierra CampusComment on above:Performed By: #### CBCA, FEPR, LIVR, 6-4, 9, 2284-04, 65313-9 #### [facility] ([id number]) [address], [address] [place] [address] #### 97771-3 #### [facility] ([id number]) [address] [place] [address] 53039Gnulam [Moles/Vol]133 mmol/LGcf286-172UsyGiiqqeThe Hospitals Of Providence Sierra CampusComment on above:Performed By: #### CBCA, FEPR, LIVR, 6-4, 2131-9, 4-8, 27269-7 #### [facility] ([id number]) [address] [place] [address], [address] [place] [address] #### 93004-5 #### [facility] ([id number]) [address] [place] [address] 11387Ipof nitrogen [Mass/Vol]12 mg/dLNormal5-23Pro[facility] Medical CenterCombeaumont hospital on above:Performed By: #### CBCA, FEPR, LIVR, 6-4, 9, 2283-8, 73088-5 #### [facility] ([id number]) [address] [place] [address], [address] [place] [address] #### 99094-7 #### [facility] ([id number]) [address] [place] [address] 34640KGV,APTIMA HPV,AGE GDLNon 33-16-6975ZXR GDLN ACOG TESTINGNote. [facility] Van Wert HospitalComment on above:TESTS RESULT FLAG UNITS REF RANGE LAB Clinician Provided Cytology Information Source.............Endocervix No. of containers..01 ThinPrep Vial Age Algo ACOG Luisa... FLAG LEGEND: L-Low Normal,H-High Normal,LL-Alert Low,HH-Alert High <-Panic Low,>-Panic High,A-Abnormal,AA-Critical Abnormal Performed at: 01 =[address] [place] [address] Flores Rodgers MD, HPV APTIMANegativeNegativeNOMS HealthcareComment on above:This nucleic acid amplification test detects fourteen high- risk HPV types (16,18,31,33,35,39,45,51,52,56,58,59,66,68) without differentiation. Performed at: =[address], [place] [id number] [employer] Museum Aide: Flores Rodgers MD, Phone: [phone] Performed at: [address] [id number] [employer] Aide: Flores Rodgers MD, Phone: [phone] IGP, APTIMA HPV, RFX 16/18,45Note.NOMS HealthcareComment on above:TESTS RESULT FLAG UNITS REF RANGE LAB DIAGNOSIS: 02 NEGATIVE FOR INTRAEPITHELIAL LESION OR MALIGNANCY. Specimen adequacy: 02 Satisfactory for evaluation. No endocervical component is identified. Performed by: 02 Jorge Whittington, Custom Clothier (ASCP) . 02 Note: Note 02 The Pap smear is a screening test designed to aid in the detection of premalignant and malignant conditions of the uterine cervix. It is not a diagnostic procedure and should not be used as the sole means of detecting cervical cancer. Both false-positive and false-negative reports do occur. Test Methodology: Note 02 This liquid based ThinPrep(R) pap test was screened with the use of an image guided system. HPV Genotype Reflex Note 02 Criteria not met, HPV Genotype not performed. FLAG LEGEND: L-Low Normal,H-High Normal,LL-Alert Low,HH-Alert High <-Panic Low,>-Panic High,A-Abnormal,AA-Critical Abnormal Performed at: 02 [facility] [address] [place] [address] Flores Rodgers MD, SPATULA-ALONE ENDOCERVIX CLINISYNCNOMS HealthcareLIPASEon 51-39-7625Obfpoa [Catalytic activity/Vol]25 U/L Vkoelc56-50VlkHiuczjTrinity Health System Twin City Medical CenterComment on above:Performed By: #### CBCA, FEPR, LIVR, 2276-4, 2132-9, 2284-8, 91501-5 #### [facility] ([id number]) [address] [place] [address], [address] [place] [address] #### 70675-4 #### [facility] ([id number]) [address] [place] [address], [place], [place] [address]VSRE NURSING URINE MACROSCOPIC UAon 10-24-3047UNYJMJTUY LAMBERT NegativeNormalNegativeTrinity Health System Twin City Medical CenterComment on above:Performed By: #### NUM #### [facility] ([facility]) [address] [place] [address] VIRBLOOD/HGB NURNegativeNormalNegativeTrinity Health System Twin City Medical CenterComment on above:Performed By: #### NUM #### [facility] ([facility]) [address] [place] [address] VIRGLUCOSE NURNegativeNormalNegativeTrinity Health System [facility] Center Comment on above:Performed By: #### NUM #### [facility] ([address] [address] VIRKETONES NURNegativeWachapreagueNegativeTrinity Health System [facility] Comment on above:Performed By: #### NUM #### [facility] ([address] [place] [address] VIRLEUKOCYTE ESTERASE NURNegativeNormalNegativeTrinity Health System Twin City Medical CenterComment on above:Performed By: #### NUM #### [facility] ([address] [address] VIRNITRITE NURNegativeWachapreagueNegDoctors Hospital Comment on above:Performed By: #### NUM #### [facility] ([address] [address] VIRPH NUR6.5Euzsbh3.0, 6.0, 6.5, 7.0, 7.5, 8.0, 8.5, 5.5 [facility] Medical CenterComment on above:Performed By: #### NUM #### [facility] ([address] [address] VIRPROTEIN NURNegativeWachapreagueNegDoctors Hospital Comment on above:Performed By: #### NUM #### [facility] ([address] [place] [address] VIRSPECIFIC GRAVITY NUR1.327Ptmzgd9.010, 1.015, 1.020, 1.025 [facility] Medical CenterComment on above:Performed By: #### NUM #### [facility] ([address] [address] VIRUROBILINOGEN NUR2.0 E.U./dLEllett Memorial HospitalalTrinity Health System [facility] Comment on above:Performed By: #### NUM #### [facility] ([address] [place] [address] VIRUS ABDOMEN LMTDon 14-99-3021XH ABDOMEN LMTDUS ABDOMEN LMTD US ABDOMEN LMTD HISTORY: Right upper quadrant pain COMPARISON: CT abdomen pelvis dated 10/26/2023 TECHNIQUE: Multiple real-time grayscale images were obtained in transverse and sagittal projections. Color Doppler was used. FINDINGS: Visualized portions of liver are homogenous in echotexture without demonstrated focal lesion. No intrahepatic biliary dilatation. The common duct is not dilated and measures [...] by Murali Mendoza MD on 06/17/2025 11:35 AMNormalProThe Hospitals Of Providence Sierra CampusUrinalysis macro (dipstick) panel (U)on 95-71-6510Cmyckjtqc, UANegative Negative - 4(70) +++ mg/dLNOMS HealthcareBlood, UANegativeNegative - 50 Raul/mcL NOMS HealthcareClarity, UAClearNOMS HealthcareColor, UAYellowNOMS Healthcare Glucose, UANegativeNegative - 2000(110) ++++ mg/dLNOMS HealthcareInterpretation and review of laboratory resultsAbnormalNOMS HealthcareKetones, UANegative Negative - 160(16) ++++ mg/dLNOMS HealthcareLeukocytes, UANegativeNegative - 500+++ Ramo/mcLNOMS HealthcareNitrite, UANegativeNegative - PositiveNOMS HealthcarepH, UA65 - 9NOMS HealthcareProtein, UATraceNegative - 2000(20) ++++ mg/dLNOMS HealthcareSpec Grav, UA1.0251 - 1.03NOMS HealthcareUrobilinogen, UA2.0 0.2 - 12 mg/dLNOMS HealthcareNOMS HealthcareANTI THROMBIN 3 FUNCTon 05-29-2025 ANTI THROMBIN 3 FUNCT93 %Ugashg50-737AykJyyuehMercy Health Willard HospitalComment on above: Performed By: #### UPCR #### [facility] ([facility]) [address] [place] [address] VIRB-TYPE NATRIURETIC PEPTIDEon 57-70-6886Zdzifgrcmms peptide B (Bld) [Mass/Vol]23 pg/mLNormal<=100Pro[facility]ica Augusta HospitalComment on above: Performed By: #### BNP #### [facility] ([facility]) [address] [place] [address] VIRCBC (NO DIFF)on 57-96-7881Dgnbokmlqpq distribution width (RBC) [Ratio]13.5 %Qilolt40.5-15ProMedica Augusta HospitalComment on above: Performed By: #### CBC #### [facility] ([facility]) [address] [place] [address] VIRHematocrit (Bld) [Volume fraction]33.8 %Tcf98-56VpoGxifcm Augusta HospitalComment on above:Performed By: #### CBC #### [facility] ([facility]) [address] [place] [address] VIRHemoglobin (Bld) [Mass/Vol]11.8 g/xYIaxnda77.7-15.5ProMedica Augusta HospitalComment on above:Performed By: #### CBC #### [facility] ([facility]) [address] [place] [address] VIRMCH (RBC) [Entitic mass]30.9 myHigdwa72-28HfhRgmawa Augusta HospitalComment on above:Performed By: #### CBC #### [facility] ([facility]) [address] [place] [address] VIRMCHC (RBC) [Mass/Vol]34.8 g/kEXfqmba23-80MboOqthej Augusta HospitalComment on above:Performed By: #### CBC #### [facility] ([facility]) [address] [place] [address] VIRMCV (RBC) [Entitic vol]89 pBGcebin05-119GvkOprsrq [place] HospitalComment on above:Performed By: #### CBC #### [facility] ([facility]) [address] [place] [address] VIRPlatelet mean volume (Bld) [Entitic vol]8.4 fLNormal7-12 [facility] ToledoComment on above:Performed By: #### CBC #### [facility] ([facility]) [address] [place] [address] VIRPlatelets (Bld) [#/Vol]245 10*3/zSBuayif044-669HqwFwzrbo [place] HospitalComment on above:Performed By: #### CBC #### [facility] ([facility]) [address] [place] [address] VIRRBC COUNT3.81 X10E12/LNormal3.8-5.2PC[facility]innati [facility] Comment on above:Performed By: #### CBC #### [facility] ([facility]) [address] [place] [address] VIRWBC (Bld) [#/Vol]9.8 10*3/uLNormal4-11ProMercy Health Willard HospitalComment on above:Performed By: #### CBC #### [facility] ([facility]) [address] [place] [address] VIRCBC without diffon 14-65-5482Kdjoirpqyln distribution width (RBC) [Ratio]13.5 %11.5 - 15 %[facility] Medical CenterHematocrit (Bld) [Volume fraction]33.8 %Low35 - 47 %[facility] Medical CenterHemoglobin (Bld) [Mass/Vol] 11.8 g/dL11.7 - 15.5 g/dLOhio State University Wexner Medical CenterInterpretation and review of laboratory resultsAbnormalMartins Ferry Hospital (RBC) [Entitic mass]30.9 pg 27 - 34 [facility] (RBC) [Mass/Vol]34.8 g/dL32 - 36 g/dL [facility] Medical CenterMCV (RBC) [Entitic vol]89 fL80 - 100 [facility] SystemPlatelet mean volume (Bld) [Entitic vol]8.4 fL7 - 12 [facility] Sports MedicinePlatelets (Bld) [#/Vol]245 10*3/[facility]rosse PointeRBC (Bld) [#/Vol] 3.81 10*6/[facility]-Grosse PointeWBC LM Ql (Sput)9.8[facility] Medical CenterCOMPREHENSIVE METABOLIC PANELon 07-64-1203Palmehf [Mass/Vol]3.7 g/dLNormal3.2-5.3PCincinnati VA Medical CenterComment on above: Performed By: #### CMP #### [facility] ([facility]) [address] [place] [address] VIRALP [Catalytic activity/Vol]69 U/LPtulmb59-842PqnPgbnar [place] HospitalComment on above:Performed By: #### CMP #### [facility] ([facility]) [address] [place] [address] VIRALT [Catalytic activity/Vol]11 U/LNormal<=31PCincinnati VA Medical CenterComment on above:Performed By: #### CMP #### [facility] ([facility]) [address] [place] [address] VIRAnion gap [Moles/Vol]14 mmol/LNormal5-15Pro[facility] [place] [facility] HospitalComment on above:Performed By: #### CMP #### [facility] ([facility]) [address] [place] [address] VIRAST [Catalytic activity/Vol]12 U/LNormal<=41Pro[facility] [place] [facility] HospitalComment on above:Performed By: #### CMP #### [facility] ([facility]) [address] [place] [address] VIRBilirubin [Mass/Vol]0.3 mg/dLNormal0.3-1.2Pro[facility] HospitalComment on above:Performed By: #### CMP #### [facility] ([facility]) [address] [place] [address] VIRCalcium [Mass/Vol]8.8 mg/dLNormal8.5-10.5PCincinnati VA Medical CenterComment on above:Performed By: #### CMP #### [facility] ([facility]) [address] [place] [address] VIRChloride [Moles/Vol]106 mmol/QVkaqhh78-735QuwZpzyyo [place] HospitalComment on above:Performed By: #### CMP #### [facility] ([facility]) [address] [place] [address] VIRCO2 [Moles/Vol]19 mmol/BSxp29-65CtbPrbqub [facility] Comment on above:Performed By: #### CMP #### [facility] ([facility]) [address] [place] [address] VIRCreatinine [Mass/Vol]0.45 mg/dLNormal0.40-1.00Pro[facility] [place] [facility] HospitalComment on above:Result Comment: METHOD TRACEABLE TO IDMS STANDARDPerformed By: #### CMP #### [facility] ([facility]) [address] [place] [address] VIREGFR (CKD-EPI) NON-RACE DEPENDENT>^90Normal>=60ProMercy Health Willard HospitalComment on above:Result Comment: Reported eGFR is based on the CKD-EPI 2021 equation that does not use a race coefficient.Performed By: #### CMP #### [facility] ([facility]) [address] [place] [address] VIRGlucose [Mass/Vol]128 mg/wCRkio74-09EsbJuzazn [place] HospitalComment on above:Performed By: #### CMP #### [facility] ([facility]) [address] [place] [address] VIRPotassium [Moles/Vol]3.6 mmol/LNormal3.5-5.0ProMedica Kent HospitalComment on above:Performed By: #### CMP #### [facility] ([facility]) [address] [place] [address] VIRProtein [Mass/Vol]6.5 g/dLNormal6.0-8.0ProMedica Kent HospitalComment on above:Performed By: #### CMP #### [facility] ([facility]) [address] [place] [address] VIRSodium [Moles/Vol]139 mmol/HIwggzh276-375TrxPwlqwp Kent HospitalComment on above:Performed By: #### CMP #### [facility] ([facility]) [address] [place] [address] VIRUrea nitrogen [Mass/Vol]9 mg/dLNormal5-23ProMedica Kent HospitalComment on above:Performed By: #### CMP #### [facility] ([facility]) [address] [place] [address] VIRFERRITINon 23-93-4189Zeonsijx [Mass/Vol]15 ng/gXHczeet22-751 [facility] Augusta HospitalComment on above:Performed By: #### FERR #### [facility] ([facility]) [address] [place] [address] VIRFOLATEon 01-82-2906BJBWU ACID13.3 ng/mLNormal>5.8ProMedica [facility] HospitalComment on above:Performed By: #### FOLI #### [facility] ([facility]) [address] [place] [address] VIRIRON AND TIBCon 43-71-8583Kzsq [Mass/Vol]71 ug/dLNormal 50-170ProMedica [facility] HospitalComment on above:Performed By: #### FEPR #### [facility] ([facility]) [address] [place] [address] VIRIRON LLGDGAP435 ug/eOVexi675-894NrbQlnjdl [facility] Comment on above:Performed By: #### FEPR #### [facility] ([facility]) [address] [place] [address] VIRIRON SFUFWQNMLN50 % HFUSWXFHNOBrehbn10-42SsnYudira [place] HospitalComment on above:Performed By: #### FEPR #### [facility] ([facility]) [address] [place] [address] VIRTransferrin [Mass/Vol]332 mg/kCLiqfsc976-292CjwBgdqxf [place] HospitalComment on above:Performed By: #### FEPR #### [facility] ([facility]) [address] [place] [address] VIRLDHon 86-90-5570IQR024 U/MUzygfh959-351WftOpmffd [place] HospitalComment on above:Performed By: #### LDH #### [facility] ([facility]) [address] [place] [address] VIRPROTEIN C ACTIVITYon 98-11-3307GVJIOUP C AWUSKFLK497 %Normal 70-140ProMercy Health Willard HospitalComment on above:Performed By: #### UPCR #### [facility] ([facility]) [address] [place] [address] VIRPROTEIN CREAT RATIOon 05-29-2025U/PRO/ASSORTMENT PLANNER RATIO CALC0.08 Normal<=0.20ProMercy Health Willard HospitalComment on above:Order Comment: Nephrotic Syndrome is associated with ratios >3.5Performed By: #### UPCR #### [facility] ([facility]) [address] [place] [address] VIRURINE CREATININE,KPI177.80 mg/dLNormalProMercy Health Willard HospitalComment on above:Order Comment: Nephrotic Syndrome is associated with ratios >3.5Performed By: #### UPCR #### [facility] ([facility]) [address] [place] [address] VIRURINE PROTEIN, RANDOM (MG/L)110 mg/LNormal<120ProMercy Health Willard HospitalComment on above:Order Comment: Nephrotic Syndrome is associated with ratios >3.5Performed By: #### UPCR #### [facility] ([facility]) [address] [place] [address] VIRPROTEIN S ACTIVITYon 45-13-5496GPKESXC S UDYTXPHC17 %Low 64-149ProMercy Health Willard HospitalComment on above:Result Comment: Oral contraceptives, hormonal therapy, , acute illness,thrombosis, DIC, harley er disease, warfarin or the presence of Factor V Leiden mutation, may lead to diminished recovery of Protein S. If Protein S activity is decreased, reflex testing for Protein S free and total antigen may be performed. Results of the test should be interpreted in conjunction with the patient's medical history, clinical presentation and other laboratory findings.Performed By: #### UPCR #### [facility] ([facility]) [address] [place] [address] VIRTHIAMIN (VITAMIN B1), WBon 71-71-2261VUNGFUD (VITAMIN B1), WB123 nmol/LUvuyus91-535JsvXirmlc [place] HospitalComment on above:Result Comment: ADDITIONAL INFORMATION This test was developed and its performance characteristics determined by [facility] in a manner consistent with CLIA requirements. This test has not been cleared or approved by the U.S. Food and Drug Administration. Test Performed by: [facility] [address] [place] [address] [employer] Aide: Jayce Daniels Ph.D.; CLIA# [id number] By: #### UPCR #### [facility] ([facility]) [address] [place] [address] VIRURIC ACIDon 62-66-7798Eryos [Mass/Vol]4.4 mg/dLNormal2.6-7.2 [facility]rbana HospitalComment on above:Performed By: #### URIC #### [facility] ([facility]) [address] [place] [address] VIRVITAMIN B12on 18-88-2778Evbjdqyem (Vitamin B12) [Mass/Vol] 243 pg/yNMnbugo046-894NjbQrjkdo [facility] HospitalComment on above:Performed By: #### UPCR #### [facility] ([facility]) [address] [place] [address] VIRVITAMIN D 25 HYDROXYon 29-78-6051YAGEPRZ D 25 HYD TOT27.1 ng/mLLow30.0-100.0Pro[facility]ica [facility] Urbana HospitalComment on above:Order Comment: Vitamin D status 25 [place] Vitamin D Deficiency <20 ng/mL Insufficiency 20-29 ng/mL Sufficiency 30-100 ng/mL Toxicity >100 ng/mL NOTE: A pediatric reference range has not been established by the hand potter of this kit. The [place] [employer] recommends a Vitamin D level of = or >20ng/mL in infants and children.Performed By: #### VITD #### [facility] ([facility]) [address] [place] [address] VIRZINC, SERUMon 34-64-1419OZEH, S62 mcg/pFNopndf30-356 [facility]rbana HospitalComment on above:Result Comment: ADDITIONAL INFORMATION This test was developed and its performance characteristics determined by [facility] in a manner consistent with CLIA requirements. This test has not been cleared or approved by the U.S. Food and Drug Administration. Test Performed by: [facility] [address] [place] [address] [employer] Aide: Jayce Daniels Ph.D.; CLIA# [id number] By: #### UPCR #### [facility] ([facility]) [address] [place] [address] VIRUrinalysis macro (dipstick) panel (U)on 83-43-7763Uvxynwhrp, UANegativeNegative - 4(70) +++ mg/dLNOMS HealthcareBlood, UANegativeNegative - 50 Raul/mcLNOMS HealthcareClarity, UAClearNOMS HealthcareColor, UAYellowNOMS HealthcareGlucose, UANegativeNegative - 1999(110) ++++ mg/dLNOMS Healthcare Interpretation and review of laboratory resultsNormalNOMS HealthcareKetones, UA NegativeNegative - 160(16) ++++ mg/dLNOMS HealthcareLeukocytes, UANegative Negative - 500+++ Ramo/mcLNOMS HealthcareNitrite, UANegativeNegative - Positive NOMS HealthcarepH, UA5.55 - 9NOMS HealthcareProtein, UANegativeNegative - 1999(20) ++++ mg/dLNOMS HealthcareSpec Grav, UA1.021 - 1.03N[facility] Healthcare Urobilinogen, UA1.00.2 - 12 mg/dLNOMS [facility] HospitalNOHI HealthcareUrinalysis macro (dipstick) panel (U)on 89-18-4168Qymcchchy, UANegativeNegative - 4(70) +++ mg/dL NOMS HealthcareBlood, UANegativeNegative - 50 Raul/mcLNOMS HealthcareClarity, UA ClearNOMS HealthcareColor, UAAmberNOMS HealthcareGlucose, UANegativeNegative - 1999(110) ++++ mg/dLNOMS HealthcareInterpretation and review of laboratory resultsNormalNOMS HealthcareKetones, UANegativeNegative - 160(16) ++++ mg/dLNOMS HealthcareLeukocytes, UANegativeNegative - 500+++ Ramo/[facility] SystemNOHI Healthcare Nitrite, UANegativeNegative - PositiveNOMS HealthcarepH, UA65 - 9[facility] Protein, UANegativeNegative - 2000(20) ++++ mg/dLNOMS HealthcareSpec Grav, UA 1.031 - 1.03NOMS HealthcareUrobilinogen, UA1.00.2 - 12 mg/dLNOMS HealthcareNOHI HealthcareBOX TESTon 70-34-2749JLV TEST SENT OUTUNHillside HospitalHbbtodtljyHAE0JYQFQ NOMS QgsjkbjaemSEB21/NOHI HealthcareCLINISYNCBasic Metabolic Panelon 02-09-8999Uyriytn [Mass/Vol]97 mg/dLOhio State University Wexner Medical CenterCBC and differential on 34-92-1584Faburlrxpi (Bld) [Volume fraction]37 %36 - 46 %[facility] Medical CenterInterpretation and review of laboratory resultsAbnormalOhio State University Wexner Medical CenterWBC (Bld) [#/Vol]12.4 10*3/mLAbnormal3.3 - 10.0 10*3/mLOhio State University Wexner Medical CenterCBC without diffon 61-73-6229Qubeuqtyja (Bld) [Volume fraction]36.5 % [facility] CenterRb Mcv (Fl) By Automated Count87.1PWadsworth-Rittman HospitalDrug Screen, Urineon 11-78-5092Xoldlzvytrc/MethamphetamineNegative [facility] Medical CenterBarbituratesNegativeOhio State University [facility] Center BenzodiazepinesNegativeOhio State University Wexner Medical CenterCocaine MetaboliteNegative [facility] Medical CenterMethadoneNegativeOhio State University Wexner Medical CenterOpiatesNegative [facility] Medical CenterOxycodoneNegativeOhio State University Wexner Medical CenterPhencyclidine NegativeOhio State University Wexner Medical CenterThc Marijuana, UrineNegativeOhio State University Wexner Medical CenterHBV surface Ag IA Qlon 01-60-8201Drjocwtdi B Surface AntigenNegative [facility] Medical CenterHCV Ab IA Qlon 17-84-9995GBV Ab Ql (S)Non-Reactive [facility] Medical CenterHIV 1+2 Ab+HIV1 p24 Ag IA Qlon 64-05-3170LKP 1&2 AB/AG Non-ReactiveOhio State University Wexner Medical CenterHemoglobin A1con 04-22-6877MpR4l (Bld) [Mass fraction]5 %4.0 - 6.0 %[facility] CenterLaboratory - Hematology and Cell countson 59-98-7243Dydxwcmrbb (Bld) [Mass/Vol]12.3 g/dLOhio State University Wexner Medical Center Platelets (Bld) [#/Vol]243 10*3/uLOhio State University Wexner Medical CenterNo Panel Informationon 11-20-8228ASNU HealthcareRubella IGG immune statuson 29-47-3866Zppezwe immune IgG1.59[facility] Medical CenterT. pallidum IgG+IgM IA Ql (S)Ordered By: Anne Pozo on 93-13-7218IqhpijikVmb-ReactiveOhio State University Wexner Medical CenterHCG ( test) Ql (U)on 75-71-6464Agdliklpclacvv and review of laboratory resultsNormal NOMS HealthcarePreg Test, UrPositiveNegativeNOMS HealthcareNOMS HealthcareUS OB TRANSVAGINALon 75-56-7085BM OB TRANSVAGINALFINDINGS: A single intrauterine gestational sac is present. [...] 21, 2025. TRANSCRIBED BY: ELECTRONICALLY SIGNED BY: Alfonso RockwellNot AvailableComment on above:Order Comment: US OB TRANSVAGINAL No LMP recorded.Urinalysis macro (dipstick) panel (U)on 71-80-8663Gmovohtjv, UA NegativeNegative - 4(70) +++ mg/dLNOMS HealthcareBlood, UANegativeNegative - 50 Raul/mcLNOMS HealthcareClarity, UAClearNOMS HealthcareColor, UAYellowNOMS HealthcareGlucose, UANegativeNegative - 1999(110) ++++ mg/dLNOHI Healthcare Interpretation and review of laboratory resultsNormalNOMS HealthcareKetones, UA NegativeNegative - 160(16) ++++ mg/dLNOMS HealthcareLeukocytes, UATraceNegative - 500+++ Ramo/mcLNOMS HealthcareNitrite, UANegativeNegative - PositiveNOMS HealthcarepH, UA65 - 9NOMS HealthcareProtein, UANegativeNegative - 2000(20) ++++ mg/dLNOMS HealthcareSpec Grav, UA1.021 - 1.03NOMS HealthcareUrobilinogen, UA2.0 0.2 - 12 mg/dLNOOutagamie County Health CenterCB AND AUTO DIFFon 01-01-2025 ABSOLUTE BASOPHIL0.1 X10E9/LNormal0.0-0.2ProMedMorningside HospitalComment on above:Performed By: #### CBCA, FEPR, LIVR, 2275-4, 2131-9, 2283-8, 71951-2 #### [facility] ([id number]) [address], [address] [place] [address] #### 30472-7 #### [facility] ([id number]) [address] [place] [address] 31130MEBKWMZU NEUTROPHIL6.0 X10E9/LNormal1.5-6.6ProThe Hospitals Of Providence Sierra CampusComment on above:Performed By: #### CBCA, FEPR, LIVR, 2275-, 2132-05, 2284-04, 93197-3 #### [facility] ([id number]) [address], [address] [place] [address] #### 62020-9 #### [facility] ([id number]) [address] [place] [address] 91720Acxijcmsv/100 WBC (Bld)0.7 %NormalProThe Hospitals Of Providence Sierra Campus Comment on above:Performed By: #### CBCA, FEPR, LIVR, 2275-4, 2132-05, 2284-04, 23761-9 #### [facility] ([id number]) [address], [address] [place] [address] #### 18139-8 #### [facility] ([id number]) [address] [place] [address] 05801Rqnvdfttrpu (Bld) [#/Vol]0.1 10*3/uLNormal0.0-0.4ProThe Hospitals Of Providence Sierra CampusComment on above:Performed By: #### CBCA, FEPR, LIVR, 2276-4, 2131-9, 4-8, 70711-0 #### [facility] ([id number]) [address], [address] [place] [address] #### 19174-7 #### [facility] ([id number]) [address] [place] [address] 97391Pwjtzpvwpfm/100 WBC (Bld)0.9 %NormalProThe Hospitals Of Providence Sierra Campus Comment on above:Performed By: #### CBCA, FEPR, LIVR, 6-4, 9, 2283-8, 62698-2 #### [facility] ([id number]) [address], [address] [place] [address] #### 29691-9 #### [facility] ([id number]) [address] [place] [address] 98118Wbcrtwjrzsp distribution width (RBC) [Ratio]14.2 %Normal 11.5-15.0ProThe Hospitals Of Providence Sierra CampusComment on above:Performed By: #### CBCA, FEPR, LIVR, 6-4, 9, 2284-04, 12159-3 #### [facility] ([id number]) [address], [address] [place] [address] #### 90376-8 #### [facility] ([id number]) [address] [place] [address] 40009Knnpkrtxnq (Bld) [Volume fraction]38.0 %Psdamy36-75PvaHryfldThe Hospitals Of Providence Sierra CampusComment on above:Performed By: #### CBCA, FEPR, LIVR, 6-4, 9, 2284-04, 24474-0 #### [facility] ([id number]) [address], [address] [place] [address] #### 50049-9 #### [facility] ([id number]) [address] [place] [address] 33385Lpoxdbylnz (Bld) [Mass/Vol]12.8 g/zLMsmtiv47.7-15.5PKindred Hospital LimaComment on above:Performed By: #### CBCA, FEPR, LIVR, 6-4, 2-9, 2284-8, 03933-6 #### [facility] ([id number]) [address], [address] [place] [address] #### 78009-1 #### [facility] ([id number]) [address] [place] [address] 46189Zlskbdnkldc (Bld) [#/Vol]3.8 10*3/uLHigh1.0-3.5PKindred Hospital LimaComment on above:Performed By: #### CBCA, FEPR, LIVR, 6-4, 2131-9, 4-8, 31985-7 #### [facility] ([id number]) [address], [address] [place] [address] #### 88039-0 #### [facility] ([id number]) [address] [place] [address] 79677Ucgnrbnsnkz/100 WBC (Bld)36.4 %NormalProThe Hospitals Of [facility] Campus Comment on above:Performed By: #### CBCA, FEPR, LIVR, 6-4, 2131-9, 4-8, 34846-1 #### [facility] ([id number]) [address], [address] [place] [address] #### 75648-3 #### [facility] ([id number]) [address] [place] [address] 78034VIZ (RBC) [Entitic mass]28.8 sxSbensk08-75TtfRvqwvzThe Hospitals Of Providence Sierra CampusComment on above:Performed By: #### CBCA, FEPR, LIVR, 6-4, 2131-9, 4-8, 48373-2 #### [facility] ([id number]) [address], [address] [place] [address] #### 40776-3 #### [facility] ([id number]) [address] [place] [address] 96828SOWY (RBC) [Mass/Vol]33.8 g/sJZmglah60-87IypGeswsiThe Hospitals Of Providence Sierra CampusComment on above:Performed By: #### CBCA, FEPR, LIVR, 6-4, 2131-9, 2283-8, 64399-8 #### [facility] ([id number]) [address], [address] [place] [address] #### 59561-5 #### [facility] ([id number]) [address] [place] [address] 28151STW (RBC) [Entitic vol]85 wIClnvwz82-994XezQeajar Fremont HospitalComment on above:Performed By: #### CBCA, FEPR, LIVR, 6-4, 9, 2283-8, 72798-8 #### [facility] ([id number]) [address], [address] [place] [address] #### 42919-6 #### [facility] ([id number]) [address] [place] [address] 32677Gyeztiwfb (Bld) [#/Vol]0.4 10*3/uLNormal0-0.9[facility] City Medical CenterComment on above:Performed By: #### CBCA, FEPR, LIVR, 6-4, 2131-9, 4-8, 11414-0 #### [facility] ([id number]) [address], [address] [place] [address] #### 94381-7 #### [facility] ([id number]) [address] [place] [address] 69745Wjmzqxsww/100 WBC (Bld)4.1 %[facility] Comment on above:Performed By: #### CBCA, FEPR, LIVR, 6-4, 9, 2283-8, 00997-1 #### [facility] ([id number]) [address], [address] [place] [address] #### 34989-8 #### [facility] ([id number]) [address] [place] [address] 94627Andlbyeziei/100 WBC (Bld)57.9 %[facility] Comment on above:Performed By: #### CBCA, FEPR, LIVR, 2275-, 2132-05, 2284-04, 46775-9 #### [facility] ([id number]) [address], [address] [place] [address] #### 29207-8 #### [facility] ([id number]) [address] [place] [address] 79881Kpmhapxp mean volume (Bld) [Entitic vol]8.7 fLNormal7-12 ProMedicSonora Regional Medical CenterComment on above:Performed By: #### CBCA, FEPR, LIVR, 2275-, 9, 2284-04, 43647-1 #### [facility] ([id number]) [address], [address] [place] [address] #### 81538-8 #### [facility] ([id number]) [address] [place] [address] 85121Dbxgfdmaw (Bld) [#/Vol]308 10*3/jMQokbaz431-673AfkOaubomTrinity Health System Twin City Medical CenterComment on above:Performed By: #### CBCA, FEPR, LIVR, 6-4, 9, 2283-8, 84306-5 #### [facility] ([id number]) [address] [facility], [address] [place] [address] #### 80128-0 #### [facility] ([id number]) [address] [place] [address] 79111TMV COUNT4.45 X10E12/LNormal3.80-5.20[facility] Comment on above:Performed By: #### CBCA, FEPR, LIVR, 2275-4, 9, 8, 20697-1 #### [facility] ([id number]) [address] [place] [address], [address] [place] [address] #### 08377-3 #### [facility] ([id number]) [address] [place] [address] 37926FGD (Bld) [#/Vol]10.5 10*3/uLNormal4.0-11.0[facility] Medical CenterComment on above:Performed By: #### CBCA, FEPR, LIVR, 2275-, 2132-05, 2284-04, 87211-0 #### [facility] ([id number]) [address] [place] [address], [address] [place] [address] #### 43825-8 #### [facility] ([id number]) [address] [place] [address] 60968BGZQPPJAki 57-41-7919Dedqpazt [Mass/Vol]40 ng/zVAhsdaw53-184 [facility] Medical CenterComment on above:Performed By: #### CBCA, FEPR, LIVR, 2275-4, 9, 2284-04, 03916-4 #### [facility] ([id number]) [address], [address] [place] [address] #### 56923-3 #### [facility] ([id number]) [address] [place] [address] 29880Ixxjbw [Mass/Vol]on 82-58-1856WAVXG ACID4.0 ng/mLLow>5.8 [facility] Medical CenterComment on above:Result Comment: NEW REFERENCE [facility] Performed By: #### CBCA, FEPR, LIVR, 6-4, 9, 8, 03084-6 #### [facility] ([id number]) [address] [place] [address], [address] [place] [address] #### 35904-2 #### [facility] ([id number]) [address] [place] [address] 50825EWTK PROFILEon 55-32-5275Kwpq [Mass/Vol]36 ug/oKRwu99-977 [facility] Medical CenterComment on above:Performed By: #### CBCA, FEPR, LIVR, 2275-4, 2132-05, 2284-04, 25329-6 #### [facility] ([id number]) [address] [place] [address], [address] [place] [address] #### 65372-0 #### [facility] ([id number]) [address] [place] [address] 87980EFBD OKGMGVB941 ug/zSNsjqrw589-791OhwIcbzuaTrinity Health System [facility] Center Comment on above:Performed By: #### CBCA, FEPR, LIVR, 2275-4, 2132-05, 2284-04, 66225-6 #### [facility] ([id number]) [address] [place] [address], [address] [place] [address] #### 37039-9 #### [facility] ([id number]) [address] [place] [address] 42093VAHH KTNYNXVWKB08 % CLFARZQUJMAgl55-86LdzAdjwpu [facility]remont HospitalComment on above:Performed By: #### CBCA, FEPR, LIVR, 6-4, 2131-9, 4-8, 26200-4 #### [facility] ([id number]) [address], [address] [place] [address] #### 68394-3 #### [facility] ([id number]) [address] [place] [address] 71779EBCEJ PANELon 80-41-8799Pfkctcq [Mass/Vol]4.1 g/dLNormal3.2-5.3 [facility] CenterComment on above:Performed By: #### CBCA, FEPR, LIVR, 6-4, 9, 2283-8, 35734-2 #### [facility] ([id number]) [address] [facility], [address] [place] [address] #### 69577-4 #### [facility] ([id number]) [address] [place] [address] [id number] [Catalytic activity/Vol]95 U/KWqipvb12-603KcsSluspu [facility] CenterComment on above:Performed By: #### CBCA, FEPR, LIVR, 6-4, 2131-9, 2283-8, 52823-8 #### [facility] ([id number]) [address] [facility], [address] [place] [address] #### 33148-4 #### [facility] ([id number]) [address] [place] [address] [id number] [Catalytic activity/Vol]24 U/LNormal0-31[facility] CenterComment on above:Performed By: #### CBCA, FEPR, LIVR, 6-4, 2131-9, 2283-8, 72292-9 #### [facility] ([id number]) [address] [facility] [facility], [address] [place] [address] #### 16249-2 #### [facility] ([id number]) [address] [place] [address] [id number] [Catalytic activity/Vol]18 U/LNormal0-41ProThe [facility] Sierra CampusComment on above:Performed By: #### CBCA, FEPR, LIVR, 2275-4, 2131-9, 2283-8, 18386-0 #### [facility] ([id number]) [address] [place] [address], [address] [place] [address] #### 09799-3 #### [facility] ([id number]) [address] [place] [address] [id number] [Mass/Vol]0.4 mg/dLNormal0.3-1.2ProMedMorningside HospitalComment on above:Performed By: #### CBCA, FEPR, LIVR, 2275-, 2132-05, 2284-04, 84315-1 #### [facility] ([id number]) [address] [place] [address], [address] [place] [address] #### 74487-1 #### [facility] ([id number]) [address] [place] [address] [id number].direct [Mass/Vol]0.2 mg/dLNormal0.0-0.4ProThe Hospitals [facility] Sierra CampusComment on above:Performed By: #### CBCA, FEPR, LIVR, 2275-4, 9, 2284-04, 25554-3 #### [facility] ([id number]) [address] [place] [address], [address] [place] [address] #### 12015-8 #### [facility] ([id number]) [address] [place] [address] 87469Vcnjlov [Mass/Vol]7.1 g/dLNormal6.0-8.0ProThe Hospitals [facility] Sierra CampusComment on above:Performed By: #### CBCA, FEPR, LIVR, 6-4, 9, 8, 79539-4 #### [facility] ([id number]) [address] [facility], [address] [place] [address] #### 56697-2 #### [facility] ([id number]) [address] [place], [place] [address] 57014Pobtqpdv (Bld) [Moles/Vol]on 15-96-2156Ahccrdf (Vitamin B1), WB 118 nmol/HBzilyj91-614EsyIdvxha [facility] Al[facility]itos Medical CenterComment on above:Result Comment: NOTE ADDITIONAL INFORMATION This test was developed and its performance characteristics determined by [facility] in a manner consistent with CLIA requirements. This test has not been cleared or approved by the U.S. Food and Drug Administration. Test Performed by: [facility] [address] [place] [address] Art Museum Aide: Jayce Daniels Ph.D.; CLIA# [id number] By: #### CBCA, FEPR, LIVR, 2275-12, 2132-05, 2284-04, 62939-3 #### [facility] ([id number]) [address] [facility], [address] [place] [address] #### [id number] #### [facility] ([id number]) [address] [place] [address] [id number] B12on 22-37-4698Fxldahdst (Vitamin B12) [Mass/Vol]379 pg/zHKyqghs671-520DjaGpsjvg [facility] Medical CenterComment on above:Performed By: #### CBCA, FEPR, LIVR, 2275-12, 2132-05, 2284-04, 94926-4 #### [facility] ([id number]) [address] [facility], [address] [place] [address] #### [id number] #### [facility] ([id number]) [address] [place] [address] 20610Dzvdwei D+Metabolites [Mass/Vol]on 33-30-8207VZAPKGG D 25 HYD TOT32.4 ng/kULrkaix39-860CjxQglwftTrinity Health System Twin City Medical CenterComment on above:Result Comment: Vitamin D status 25 [place] Vitamin D Deficiency <20 ng/mL Insufficiency 20-29 ng/mL Sufficiency 30-100 ng/mL Toxicity >100 ng/mL NOTE: A pediatric reference range has not been established by the hand potter of this kit. The [place] [employer] recommends a Vitamin D level of = or >20ng/mL in infants and children.Performed By: #### CBCA, FEPR, LIVR, 2276-4, 2132-9, 2284-8, 07431- 6 #### [facility] ([id number]) [address] [place] [address], [address] [place] [address] #### 57351-4 #### [facility] ([id number]) [address] [place] [address] [id number] SPINE LUMBAR 2 OR 3 VWSon 18-55-8880WV SPINE LUMBAR 2 OR 3 VWSXR SPINE LUMBAR 2 OR 3 VWS Clinical [...] by Jovanni Gallegos MD on 12/15/2024 1:53 PMNormalProThe Hospitals Of Providence Sierra CampusLaboratory - Microbiology and Antimicrobial susceptibilityon 10-10-2024 SARS-CoV-2 (COVID-19) RNA MYNOR+probe Ql (Unsp spec)NegativeNOHI HealthcareNo Panel Informationon 51-67-8969VGV APositiveNOMS HealthcareFLU BNegativeNOMS HealthcareInterpretation and review of laboratory resultsAbnoThe Children's Hospital Foundation NOMS HealthcareUrinalysis macro (dipstick) panel (U)on 27-01-2298Dzlwebkzq, UA NegativeNegative - 4(70) +++ mg/dLNOMS HealthcareBlood, UAPositiveNegative - 50 Raul/mcLNOHI HealthcareClarity, UAClearNOMS HealthcareColor, UAYellowNOHI HealthcareGlucose, UANegativeNegative - 2000(110) ++++ mg/dLNOHI Healthcare Interpretation and review of laboratory resultsAbnoAultman Hospital HealthcareKetones, UAPositiveNegative - 160(16) ++++ mg/dLDAVIS HOSPITAL AND MEDICAL [facility]ENTER HealthcareLeukocytes, UA1+Negative - 500+++ Ramo/mcLDAVIS HOSPITAL AND MEDICAL CENTER HealthcareNitrite, UANegativeNegative - PositiveNOMS HealthcarepH, UA5.05 - 9NOMS HealthcareProtein, UA1+Negative - 2000(20) ++++ mg/dLNOHI HealthcareSpec Grav, UA1.0201 - 1.03NOHI HealthcareUrobilinogen, UA4.0 0.2 - 12 mg/dLNOHI HealthcareNOHI HealthcareAmbulatory referral to Nutrition Serviceson 18-79-3200ZdlOmyemv[address] [place], [place] [address]Creatinine includes GFR, serumon 76-15-1438Ieqvenzbwe [Mass/Vol]0.69 mg/dL0.40 - 1.00 mg/dLOhio State University Wexner Medical CenterComment on above:METHOD TRACEABLE TO [facility] STANDARDeGFR (CKD-EPI)non-race dependent- [facility] Children's HospitalComment on above: Reported eGFR is based on the CKD-EPI 2020 equation that does not use a race coefficient. [facility] Medical CenterHemoglobin and hematocrit, bloodon 12-73-8720Odhhhjqgsa (Bld) [Volume fraction]35.0 %35 - 47 %[facility] Medical CenterHemoglobin (Bld) [Mass/Vol]11.4 g/dLLow11.7 - 15.5 g/dLOhio State University Wexner Medical CenterInterpretation and review of laboratory resultsAbElmira Psychiatric CenterNo Panel Information on 95-19-1629InnXmlkfnWadsworth-Rittman HospitalPlatelet counton 11-32-4912Rsxmygng mean volume (Bld) [Entitic vol]7.8 fL7 - 12 fLPWadsworth-Rittman HospitalPlatelets (Bld) [#/Vol]323 10*3/uLProPremier HealthHCG ( test) Ql (U)on 69-17-4121HwoXuagjpWadsworth-Rittman HospitalPOCT , urineon 52-86-3119KGG ( test) Ql (U)NegativeNegative^NegativeOhio State University Wexner Medical CenterBasi Metabolic Panelon 69-33-9611Qyxwo gap [Moles/Vol]11 mmol/L5 - 15 mmol/[facility] SystemCalcium [Mass/Vol]9.6 mg/dL8.5 - 10.5 mg/dLOhio State University Wex[facility] Medical Center Chloride [Moles/Vol]102 mmol/L98 - 109 mmol/[facility] Health SystemCO2 [Moles/Vol]24 mmol/L22 - 32 mmol/[facility] SystemCreatinine [Mass/Vol] 0.60 mg/dL0.40 - 1.00 mg/dLOhio State University Wexner Medical CenterComment on above:METHOD TRACEABLE TO IDHI STANDARDeGFR (CKD-EPI)non-race dependent- [facility] Children's HospitalComment on above: Reported eGFR is based on the CKD-EPI 2020 equation that does not use a race coefficient. Glucose [Mass/Vol]110 mg/rHPfge45 - 99 mg/dLOhio State University Wexner Medical Center Interpretation and review of laboratory resultsAbnormalOhio State University [facility]ner Medical Center Potassium [Moles/Vol]4.2 mmol/L3.5 - 5.0 mmol/[facility] Health SystemSodium [Moles/Vol]137 mmol/L134 - 146 mmol/[facility] SystemUrea nitrogen [Mass/Vol]13 mg/dL5 - 23 mg/dLEncompass HealthCBC without diffon 58-99-3284Nyfqqowvvzx distribution width (RBC) [Ratio]15.0 %11.5 - 15.0 %[facility] Medical CenterHematocrit (Bld) [Volume fraction]38.3 %35 - 47 % [facility] Medical CenterHemoglobin (Bld) [Mass/Vol]12.8 g/dL11.7 - 15.5 g/dL [facility] ClinicH (RBC) [Entitic mass]27.7 pg27 - [address] [facility] HospitalMCHC (RBC) [Mass/Vol]33.5 g/dL32 - 36 g/dLOhio State University Wexner Medical CenterMCV (RBC) [Entitic vol]83 fL80 - 100 [facility] Sports MedicinePlatelet mean volume (Bld) [Entitic vol]7.9 fL7 - 12 [facility] Sports MedicinePlatelets (Bld) [#/Vol]318 10*3/[facility]-Grosse PointeRBC (Bld) [#/Vol]4.63 10*6/[facility]rosse PointeWBC corrected for nucl RBC Auto (Bld) [#/Vol]9.0[facility] Medical CenterCBC AUTO DIFFon 11-00-4276OWJY #0.1 103/ulNormal0.0-0.1 [facility] HospitalComment on above:Performed By: #### CBC #### [facility] [address] [address] [address] Emmanuel MurrayBasophils/100 WBC (Bld)0.6 %Normal0.2-2.0[facility] Comment on above:Performed By: #### CBC #### [facility] [address] [address] [address] Emmanuel Hopkins #0.2 103/ulNormal0.0-0.7ThMercy Health St. Rita's Medical CenterComment on above: Performed By: #### CBC #### [facility] [address] [address] [address] Emmanuel Brownosinophils/100 WBC (Bld)1.8 %Normal0.9-7.0[facility] Comment on above:Performed By: #### CBC #### [facility] [address] [address] [address] Emmanuel Brownrythrocyte distribution width (RBC) [Ratio]14.4 %Zuwkfj50.0-15.0 [facility] HospitalComment on above:Performed By: #### CBC #### [facility] [address] [address] [address] Emmanuel MurrayHematocrit (Bld) [Volume fraction]37.7 %Bqtotw09.0-48.0The St. Anthony'S HospitalComment on above:Performed By: #### CBC #### [facility] [address] [address] [address] Emmanuel MurrayHemoglobin (Bld) [Mass/Vol]12.2 g/qHNoqjuq12.0-16.0The St. Anthony'S HospitalComment on above:Performed By: #### CBC #### [facility] [address] [address] [address] Emmanuel Gunderson #0.08 10e3/ulCritically high0.00-0.03The [facility] Comment on above:Performed By: #### CBC #### [facility] [address] [address] [address] Emmanuel Gunderson %0.8 %Critically high0.0-0.5The St. Anthony'S HospitalComment on above:Performed By: #### CBC #### [facility] [address] [address] [address] Emmanuel Dorsey #3.0 103/ulNormal1.2-3.8The St. Anthony'S HospitalComment on above:Performed By: #### CBC #### [facility] [address] [address] [address] Emmanuel Hanksmphocytes/100 WBC (Bld)30.6 %Pksrak35.5-60.0The St. Anthony'S HospitalComment on above:Performed By: #### CBC #### [facility] [address] [address] [address] Emmanuel MurrayMANUAL DIFF REQNONormalThe St. Anthony'S HospitalComment on above: Performed By: #### CBC #### [facility] [address] [address] [address] Emmanuel Austin (RBC) [Entitic mass]26.0 pgCritically low26.7-34.0The St[facility]'S HospitalComment on above:Performed By: #### CBC #### [facility] [address] [address] [address] Emmanuel MarcusHC (RBC) [Mass/Vol]32.4 g/sEAbkpfh93.9-35.2The St. [facility]'S HospitalComment on above:Performed By: #### CBC #### [facility] [address] [place] [address] Dr. Emmanuel MarcusV (RBC) [Entitic vol]80.4 fLCritically low81.0-99.0The St. [facility]'S HospitalComment on above:Performed By: #### CBC #### [facility] [address] [place] [address] Dr. Emmanuel Baldwin #0.4 103/ulNormal0.3-0.8The St. Anthony'S HospitalComment on above:Performed By: #### CBC #### [facility] [address] [place] [address] Dr. Emmanuel Sanchezocytes/100 WBC (Bld)4.6 %Normal1.7-12.0The [facility] Comment on above:Performed By: #### CBC #### [facility] [address] [place] [address] Dr. Emmanuel VillaltaUT #6.0 103/ulNormal1.4-6.5The St. [facility]'S HospitalComment on above:Performed By: #### CBC #### [facility] [address] [place] [address] Dr. Emmanuel Villaltautrophils/100 WBC (Bld)61.6 %Aogigd97.0-75.0The St[facility]'S HospitalComment on above:Performed By: #### CBC #### [facility] [address] [place] [address] Dr. Emmanuel Coboslet mean volume (Bld) [Entitic vol]8.9 fLCritically low 9.5-13.5The St. [facility]'S HospitalComment on above:Performed By: #### CBC #### [facility] [address] [place] [address] Dr. Emmanuel MurrayPLT301 103/zuOtfnpd598-772Wnj St. Anthony'S HospitalComment on above: Performed By: #### CBC #### [facility] [address] [place] [address] Dr. Emmanuel MurrayRBC4.69 106/ulNormal4.20-5.40[facility] HospitalComment on above:Performed By: #### CBC #### [facility] [address] [place] [address] Dr. Emmanuel MurrayWBC9.7 103/ulNormal4.0-11.0The St. [facility]'S HospitalComment on above: Performed By: #### CBC #### [facility] [address] [place] [address] Dr. Emmanuel MurrayPREG QUANT HCGon 17-37-2331DZC QUANT1 mIU/mLNormalThe St. Anthony'S HospitalComment on above:Performed By: #### CVDTBH #### [facility] [address] [place] [address] Dr. Emmanuel MurrayHCG RANGESEE Martins Ferry HospitalComment on above: Result Comment: 5-50 0.2-1 WEEK 50-500 1-2 WEEKS 100-5,000 2-3 WEEKS 500-10,000 3-4 WEEKS 1,000-50,000 4-5 WEEKS 10,000-100,000 5-6 WEEKS 15,000-200,000 6-8 WEEKS 10,000-100,000 2-3 MONTHSPerformed By: #### CVDTBH #### [facility] [address] [place] [address] Dr. Emmanuel MurrayUS PELVIS AND TRANSVAGon 13-49-3102YC PELVIS AND TRANSVAG EXAMINATION: US PELVIS AND [...] Electronically authenticated by: ASHLEY GRIER Date: 2022-09-26 16:50[facility] HospitalOG PANEL 2: 21 to 29on 07-04-2022..NormalThe [facility] on above:Performed By: #### [id number] #### [facility] [address] [place] [address] Dr. Emmanuel MurrayAge Gdln ACOG Jzjtnzh26-16CfvnsbJaaWilson Memorial Hospital on above:Performed By: #### [id number] #### [facility] [address] [place] [address] Dr. Emmanuel MurrayDIAGNOSIS:CommentOhioHealth Pickerington Methodist Hospital on above: Result Comment: NEGATIVE FOR INTRAEPITHELIAL LESION OR MALIGNANCY.Performed By: #### [id number] #### [facility] [address] [place] [address] Dr. Emmanuel MurrayMethodology:CommentOhioHealth Pickerington Methodist Hospital on above: Result Comment: This liquid based ThinPrep(R) pap test was screened with the use of an image guided system.Performed By: #### [id number] #### [facility] [address] [place] [address] Dr. Emmanuel MurrayNote:CommentOhioHealth Pickerington Methodist Hospital on above:Result Comment: The Pap smear is a screening test designed to aid in the detection of premalignant and malignant conditions of the uterine cervix. It is not a diagnostic procedure and should not be used as the sole means of detecting cervical cancer. Both false-positive and false-negative reports do occur. .Performed By: #### [id number] #### [facility] [address] [place] [address] Dr. Emmanuel MurrayPerformed by:CommentOhioHealth Pickerington Methodist Hospital on above: Result Comment: Nathalia Grier, Furniture Assembler (ASCP)Performed By: #### [id number] #### [facility] [address] [place] [address] Dr. Emmanuel MurrayReflex Criteria:CommentOhioHealth Pickerington Methodist Hospital on above:Result Comment: The HPV DNA reflex criteria were not met with this specimen result therefore, no HPV testing was performed. .Performed By: #### [id number] #### [facility] [address] [place] [address] Dr. Emmanuel MurraySpecimemelody adequacy:CommentOhioHealth Pickerington Methodist Hospital on above:Result Comment: Satisfactory for evaluation. No endocervical component is identified.Performed By: #### [id number] #### [facility] [address] [place] [address] Dr. Emmanuel MurrayUS PELVIS AND TRANSVAGon 24-38-7695AP PELVIS AND TRANSVAG EXAMINATION: US PELVIS AND [...] Electronically authenticated by: ASHLEY GRIER Date: 2022-07-02 16:21[facility] AUTO DIFFon 95-79-2685WPPG #0.0 103/ulNormal0.0-0.1The St[facility]'S HospitalComment on above:Performed By: #### CBC #### [facility] [address] [place] [address] Dr. Emmanuel MurrayBasophils/100 WBC (Bld)0.5 %Normal0.2-2.0The [facility] Comment on above:Performed By: #### CBC #### [facility] [address] [place] [address] Dr. Emmanuel Hopkins #0.2 103/ulNormal0.0-0.7The [facility]S HospitalCombeaumont hospital on above: Performed By: #### CBC #### [facility] [address] [place] [address] Dr. Emmanuel Brownosinophils/100 WBC (Bld)1.8 %Normal0.9-7.0The [facility] Comment on above:Performed By: #### CBC #### [facility] [address] [place] [address] Dr. Emmanuel Brownrythrocyte distribution width (RBC) [Ratio]14.3 %Bagejm30.0-15.0 [facility] HospitalComment on above:Performed By: #### CBC #### [facility] [address] [place] [address] Dr. Emmanuel MurrayHematocrit (Bld) [Volume fraction]36.8 %Kovymy86.0-48.0The St. [facility]'S HospitalComment on above:Performed By: #### CBC #### [facility] [address] [place] [address] Dr. Emmanuel MurrayHemoglobin (Bld) [Mass/Vol]11.5 g/dLCritically low12.0-16.0The St[facility]'S HospitalComment on above:Performed By: #### CBC #### [facility] [address] [place] [address] Dr. Emmanuel Gunderson #0.03 10e3/ulNormal0.00-0.03The St[facility]'S HospitalComment on above:Performed By: #### CBC #### [facility] [address] [place] [address] Dr. Emmanuel Gunderson %0.4 %Normal0.0-0.5The St[facility]'S HospitalComment on above: Performed By: #### CBC #### [facility] [address] [place] [address] Dr. Emmanuel Dorsey #1.9 103/ulNormal1.2-3.8The St[facility]'S HospitalComment on above:Performed By: #### CBC #### [facility] [address] [place] [address] Dr. Emmanuel Gonzalezhocytes/100 WBC (Bld)23.2 %Ccjbxh24.5-60.0The [facility]'S HospitalComment on above:Performed By: #### CBC #### [facility] [address] [place] [address] Dr. Emmanuel AwadUAL DIFF REQNONormalThe St. Anthony'S HospitalComment on above: Performed By: #### CBC #### [facility] [address] [place] [address] Dr. Emmanuel Marcus (RBC) [Entitic mass]25.6 pgCritically low26.7-34.0The [facility]'S HospitalComment on above:Performed By: #### CBC #### [facility] [address] [place] [address] Dr. Emmanuel Marcus (RBC) [Mass/Vol]31.3 g/dPUcdspx79.9-35.2The [facility] HospitalComment on above:Performed By: #### CBC #### [facility] [address] [place] [address] Dr. Emmanuel Guerra (RBC) [Entitic vol]81.8 aAZzefvc94.0-99.0The [facility]'S HospitalComment on above:Performed By: #### CBC #### [facility] [address] [place] [address] Dr. Emmanuel Baldwin #0.3 103/ulNormal0.3-0.8The [facility]'S HospitalComment on above:Performed By: #### CBC #### [facility] [address] [place] [address] Dr. Emmanuel Sanchezocytes/100 WBC (Bld)3.5 %Normal1.7-12.0The [facility] Comment on above:Performed By: #### CBC #### [facility] [address] [place] [address] Dr. Emmanuel Hannah #5.9 103/ulNormal1.4-6.5The [facility]'S HospitalComment on above:Performed By: #### CBC #### [facility] [address] [place] [address] Dr. Emmanuel Villaltautrophils/100 WBC (Bld)70.6 %Xaditr46.0-75.0The [facility]'S HospitalComment on above:Performed By: #### CBC #### [facility] [address] [place] [address] Dr. Yilan ChangPlatelet mean volume (Bld) [Entitic vol]9.5 fLNormal9.5-13.5ThMercy Health St. Rita's Medical CenterComment on above:Performed By: #### CBC #### [facility] [address] [place] [address] Dr. Emmaneul MurrayPLT292 103/loCstwgx074-331Tia St. [facility]'S HospitalComment on above: Performed By: #### CBC #### [facility] [address] [place] [address] Dr. Emmanuel MurrayRBC4.50 106/ulNormal4.20-5.40The St[facility]'S HospitalComment on above:Performed By: #### CBC #### [facility] [address] [place] [address] Dr. Emmanuel MurrayWBC8.4 103/ulNormal4.0-11.0The [facility]'S HospitalComment on above: Performed By: #### CBC #### [facility] [address] [place] [address] Dr. Emmanuel MurrayPRETrini QUANT HCGon 50-93-0980FNJ QUANT<1NormalThe [facility] Comment on above:Performed By: #### PREGQNT, TSH #### [facility] [address] [place] [address] Dr. Emmanuel Vasquez RANGESEE BELOWNoUniversity Hospitals Cleveland Medical CenterComment on above: Result Comment: 5-50 0.2-1 WEEK 50-500 1-2 WEEKS 100-5,000 2-3 WEEKS 500-10,000 3-4 WEEKS 1,000-50,000 4-5 WEEKS 10,000-100,000 5-6 WEEKS 15,000-200,000 6-8 WEEKS 10,000-100,000 2-3 MONTHSPerformed By: #### PREGQNT, TSH #### [facility] [address] [place] [address] Dr. Emmanuel MurrayPROTIMEon 74-83-3565OBI Coag (PPP) [Relative time]1.01 {INR} NormalMercy Health West HospitalComment on above:Performed By: #### PT, PTT #### [facility] [address] [address] [address] Emmanuel Cantu Corey HospitalComment on above:Result Comment: DESIRED INR: 2.0 - 3.0 CONDITIONS NOT LISTED BELOW 2.5 - 3.5 FOR PROSTHETIC HEART VALVE REPLACEMENT 2.5 - 3.5 RECURRENT THROMBOSIS Performed By: #### PT, PTT #### [facility] [address] [address] [address] Emmanuel Sterling Coag (PPP) [Time]10.9 sNormal9.0-11.6The [facility] Comment on above:Performed By: #### PT, PTT #### [facility] [address] [place] [address] Dr. Emmanuel Lobo 30-58-2383jIRH Coag (Bld) [Time]27.2 rRlkqkv91.3-36.2Mer[facility] West HospitalComment on above:Performed By: #### PT, PTT #### [facility] [address] [place] [address] Dr. Emmanuel Gtz 33-30-9054RIT8.795 uIU/mLNormal0.358-3.740The St[facility]'S HospitalComment on above:Performed By: #### PREGQNT, TSH #### [facility] [address] [place] [address] Dr. Emmanuel Saunders Metabolic Panelon 27-63-0859Tojcg gap [Moles/Vol]13 mmol/L9 - 17 mmol/LMercy HealthCalcium [Mass/Vol]9.2 mg/dL8.6 - 10.4 mg/dLMercy Health Chloride [Moles/Vol]99 mmol/L98 - 107 mmol/LMercy HealthCO2 [Moles/Vol]23 mmol/L 20 - 31 mmol/LMercy HealthCreatinine [Mass/Vol]0.53 mg/dL0.50 - 0.90 mg/dLMercy HealthGFR >60>60 mL/minMercy HealthGFR Non->60 >60 mL/minMercy HealthGFR/1.73 sq M.predicted MDRD (S/P/Bld) [Vol rate/Area] [facility] HospitalComment on above:Average GFR for 20-29 years old: 116 mL/min/1.73sq m Chronic Kidney Disease: <60 mL/min/1.73sq m Kidney failure: <15 mL/min/1.73sq m eGFR calculated using average adult body mass. Additional eGFR calculator available at: http://www.Iizuu/multiple_crcl_2011.htm Glucose [Mass/Vol]109 mg/vJAcvi50 - 99 mg/dLOhiohealth Hardin Memorial HospitalInterpretation and review of laboratory resultsAbnormalFisher-Titus Medical Center HealthPotassium [Moles/Vol]4.2 mmol/L 3.7 - 5.3 mmol/LMercy HealthSodium [Moles/Vol]135 mmol/L135 - 144 mmol/LMercy HealthUrea nitrogen (BldV) [Mass/Vol]13 mg/dL6 - 20 mg/dLFisher-Titus Medical Center HealthUrea nitrogen/Creatinine (Bld) [Mass ratio]25[facility] Health CenterBasic Metabolic Profon 12-05-2021(cont.)[facility] Medical CenterComment on above: Result Comment: Average GFR for 20-29 years old: 116 mL/min/1.73sq m Chronic Kidney Disease: <60 mL/min/1.73sq m Kidney failure: <15 mL/min/1.73sq m eGFR calculated using average adult body mass. Additional eGFR calculator available at: http://www.Iizuu/Xhale_crcl_2011.htmPerformed By: #### CBC, HEPXA, CMPX, MG, TSHX, TROPI #### [facility] [address] [place] [address] Art Museum Aide: Dexter Fried MD #### LIPR #### [facility] coRank [address] [place] [address] Art Museum Aide: Flynn Porter gap [Moles/Vol]13 mmol/LNormal9-17[facility] Brent[facility] HospitalComment on above:Performed By: #### CBC, HEPXA, CMPX, MG, TSHX, TROPI #### [facility] [address] [place] [address] Art Museum Aide: Dexter Fried MD #### LIPR #### [address] [address] Art Museum Aide: Paco Tatum MDBUN/CRE Ukpea07Vocf8-27PmsdbSuburban Community Hospital & Brentwood Hospital Comment on above:Performed By: #### CBC, HEPXA, CMPX, MG, TSHX, TROPI #### [facility] [address] [place] [address] Art Museum Aide: Dexter Fried MD #### LIPR #### [address] [address] Art Museum Aide: CELESTE Porteralcium [Mass/Vol]9.2 mg/dLNormal8.6-10.4[facility] Brentwood HospitalComment on above:Performed By: #### CBC, HEPXA, CMPX, MG, TSHX, TROPI #### [facility] [address] [place] [address] [employer] Museum Aide: Dexter Fried MD #### LIPR #### [address] [address] Art Museum Aide: CELESTE Porterhloride [Moles/Vol]99 mmol/SEhztsa35-374OhcukSuburban Community Hospital & Brentwood HospitalComment on above:Performed By: #### CBC, HEPXA, CMPX, MG, TSHX, TROPI #### [facility] [address] [place] [address] Art Museum Aide: Dexter Fried MD #### LIPR #### [address] [address] Art Museum Aide: Paco Tatum MDCO2 [Moles/Vol]23 mmol/GNzzrtl41-50Rxihx [facility] on above:Performed By: #### CBC, HEPXA, CMPX, MG, TSHX, TROPI #### [facility] [address] [place] [address] Art Museum Aide: Dexter Fried MD #### LIPR #### [address] [address] Art Museum Aide: Fiordaliza Porter [Mass/Vol]0.53 mg/dLNormal0.50-0.90 [facility] on above:Performed By: #### CBC, HEPXA, CMPX, MG, TSHX, TROPI #### [facility] [address] [place] [address] Art Museum Aide: Dexter Fried MD #### LIPR #### [address] [address] Art Museum Aide: Paco Tatum MDGFR, Amer>60Normal>60[facility] on above:Performed By: #### CBC, HEPXA, CMPX, MG, TSHX, TROPI #### [facility] [address] [place] [address] Art Museum Aide: Dexter Fried MD #### LIPR #### [address] [address] Art Museum Aide: Paco Tatum MDGFR,non Amer>60Normal>60[facility] on above:Performed By: #### CBC, HEPXA, CMPX, MG, TSHX, TROPI #### [facility] [address] [place] [address] Art Museum Aide: Dexter Fried MD #### LIPR #### [address] [address] Art Museum Aide: Paco Tatum MDGlucose [Mass/Vol]109 mg/dESqlw56-59RozfhForks Community HospitalComment on above:Performed By: #### CBC, HEPXA, CMPX, MG, TSHX, TROPI #### [facility] [address] [place] [address] Art Museum Aide: Dexter Fried MD #### LIPR #### [address] [address] Art Museum Aide: RAHUL Porterotassium [Moles/Vol]4.2 mmol/LNormal3.7-5.3 [facility] on above:Performed By: #### CBC, HEPXA, CMPX, MG, TSHX, TROPI #### [facility] [address] [place] [address] Art Museum Aide: Dexter Fried MD #### LIPR #### [address] [address] Art Museum Aide: Paco Tatum MDSodium [Moles/Vol]135 mmol/RYyfjkk976-294FtzkcSuburban Community Hospital & [facility]wood HospitalCombeaumont hospital on above:Performed By: #### CBC, HEPXA, CMPX, MG, TSHX, TROPI #### [facility] [address] [place] [address] Art Museum Aide: Dexter Fried MD #### LIPR #### [address] [address] Art Museum Aide: Paco Tatum MDUrea nitrogen [Mass/Vol]13 mg/dLNormal6-20[facility]Com[facility] on above:Performed By: #### CBC, HEPXA, CMPX, MG, TSHX, TROPI #### [facility] [address] [place] [address] Art Museum Aide: Dexter Fried MD #### LIPR #### [facility] [address] [place] [address] Art Museum Aide: Paco Tatum [facility] with Auto Differentialon [id number] Eos #0.14MerProvidence St. Joseph's HospitalAbsolute Immature Granulocyte0.03Mer HealthAbsolute Lymph #2.57Mer HealthAbsolute Towns #0.34MerProvidence St. Joseph's HospitalBasophils (Bld) [#/Vol]0.10 10*3/uLMer HealthBasophils/100 WBC (Bld)1 %0 - 2 %[facility] HospitalEosinophils/100 WBC (Bld)2 %1 - 4 %[facility] HospitalHematocrit (Bld) [Volume fraction]38.1 %36.3 - 47.1 %[facility] HospitalHemoglobin.gastrointestinal spec 1 Ql (Stl)11.8 g/dLLow11.9 - 15.1 g/dLOhiohealth Hardin Memorial HospitalImmature granulocytes/100 WBC (Bld)0 %0[facility] Interpretation and review of laboratory resultsAbnormalOhiohealth Hardin Memorial Hospital Lymphocytes/100 WBC (Bld)29 %24 - 43 %[facility] HospitalH (RBC) [Entitic mass]26.5 pg25.2 - 33.5 pgMercy Health Kings Mills HospitalHC (RBC) [Mass/Vol]31.0 g/dL28.4 - 34.8 g/dLMercy Health Kings Mills HospitalV (RBC) [Entitic vol]85.6 fL82.6 - 102.9 fLOhiohealth Hardin Memorial HospitalMonocytes/100 WBC (Bld)4 %3 - 12 %[facility] HospitalNRBC Automated0.00.0 per 100 WBCFisher-Titus Medical Center HealthPlatelet distribution width (Bld) [Ratio]14.2 %11.8 - 14.4 %[facility] HospitalPlatelet mean volume (Bld) [Entitic vol]9.3 fL8.1 - 13.5 fLFisher-[facility] HealthPlatelets (Bld) [#/Vol] 377 10*3/uLMer HealthRBC (Bld) [#/Vol]4.45 10*6/uL3.95 - 5.11 m/[facility] Segmented neutrophils/100 WBC (Bld)64 %36 - 65 %[facility] HospitalSegs Absolute5.62 [facility] HospitalWBC (Bld) [#/Vol]8.8 10*3/[facility] HospitalCBC with Diffon [id number]. Basophil0.10 k/uLNormal0.00-0.20[facility] Brentwood HospitalComment on above:Performed By: #### CBC, HEPXA, CMPX, MG, TSHX, TROPI #### [facility] [address] [place] [address] Art Museum Aide: Dexter Fried MD #### LIPR #### [address] [address] Art Museum Aide: Khadra Porter.Imm.Granulocyte0.03 k/uLNormal0.00-0.30[facility] HospitalCombeaumont hospital on above:Performed By: #### CBC, HEPXA, CMPX, MG, TSHX, TROPI #### [facility] [address] [place] [address] Art Museum Aide: Dexter Fried MD #### LIPR #### [address] [address] Art Museum Aide: Khadra Porter.Neutrophil (Seg)5.62 k/uLNormal1.50-8.10 [facility] HospitalCombeaumont hospital on above:Performed By: #### CBC, HEPXA, CMPX, MG, TSHX, TROPI #### [facility] [address] [place] [address] Art Museum Aide: Dexter Fried MD #### LIPR #### [address] [address] Art Museum Aide: Paco Madoff, MDBasophils/100 WBC (Bld)1 %Normal0-2Mclevel[facility] hospitaly [facility] HospitalComment on above:Performed By: #### CBC, HEPXA, CMPX, MG, TSHX, TROPI #### [facility] [address] [place] [address] Art Museum Aide: Dexter Fried MD #### LIPR #### [address] [address] Art Museum Aide: Paco Tatum MDEosinophils (Bld) [#/Vol]0.14 10*3/uLNormal 0.00-0.44[facility] HospitalCombeaumont hospital on above:Performed By: #### CBC, HEPXA, CMPX, MG, TSHX, TROPI #### [facility] [address] [place] [address] Art Museum Aide: Dexter Fried MD #### LIPR #### [address] [address] Art Museum Aide: Paco Tatum MDEosinophils/100 WBC (Bld)2 %Normal1-4[facility] Brentwood HospitalComment on above:Performed By: #### CBC, HEPXA, CMPX, MG, TSHX, TROPI #### [facility] [address] [place] [address] Art Museum Aide: Dexter Fried MD #### LIPR #### [address] [address] Art Museum Aide: Paco Tatum MDErythrocyte distribution width (RBC) [Ratio]14.2 %Fcatzf44.8-14.4[facility] Brentwood HospitalComment on above:Performed By: #### CBC, HEPXA, CMPX, MG, TSHX, TROPI #### [facility] [address] [place] [address] [place] [address] Art Museum Aide: Dexter Fried MD #### LIPR #### [address] [address] Art Museum Aide: Paco Tatum MDHematocrit (Bld) [Volume fraction]38.1 %Normal 36.3-47.1MSt. John of God Hospital on above:Performed By: #### CBC, HEPXA, CMPX, MG, TSHX, TROPI #### [facility] [address] [place] [address] Art Museum Aide: Dexter Fried MD #### LIPR #### [address] [address] Art Museum Aide: Paco Tatum MDHemoglobin (Bld) [Mass/Vol]11.8 g/dLLow11.9-15.1 [facility] HospitalCombeaumont hospital on above:Performed By: #### CBC, HEPXA, CMPX, MG, TSHX, TROPI #### [facility] [address] [place] [address] Art Museum Aide: Dexter Fried MD #### LIPR #### [address] [address] Art Museum Aide: Paco Tatum MDImmature granulocytes/100 WBC (Bld)0 %Normal0 [facility] HospitalCombeaumont hospital on above:Performed By: #### CBC, HEPXA, CMPX, MG, TSHX, TROPI #### [facility] [address] [place] [address] Art Museum Aide: Dexter Fried MD #### LIPR #### [address] [address] Art Museum Aide: Paco Tatum MDLymphocytes (Bld) [#/Vol]2.57 10*3/uLNormal 1.10-3.70[facility] Brentwood HospitalComment on above:Performed By: #### CBC, HEPXA, CMPX, MG, TSHX, TROPI #### [facility] [address] [place] [address] Art Museum Aide: Dexter Fried MD #### LIPR #### [address] [address] Art Museum Aide: Paco Tatum MDLymphocytes/100 WBC (Bld)29 %Sxevjm37-47VpiwfSuburban Community Hospital & Brentwood HospitalCombeaumont hospital on above:Performed By: #### CBC, HEPXA, CMPX, MG, TSHX, TROPI #### [facility] [address] [place] [address] Art Museum Aide: Dexter Fried MD #### LIPR #### [address] [address] Art Museum Aide: AMIRA Porter (RBC) [Entitic mass]26.5 asHkrguu36.2-33.5 [facility] HospitalCombeaumont hospital on above:Performed By: #### CBC, HEPXA, CMPX, MG, TSHX, TROPI #### [facility] [address] [place] [address] Art Museum Aide: Dexter Fried MD #### LIPR #### [address] [address] Art Museum Aide: AMIRA PorterC (RBC) [Mass/Vol]31.0 g/oLXdjnol40.4-34.8 [facility] on above:Performed By: #### CBC, HEPXA, CMPX, MG, TSHX, TROPI #### [facility] [address] [place] [address] Art Museum Aide: Dexter Fried MD #### LIPR #### [address] [address] Art Museum Aide: OCTAVIA PorterCV (RBC) [Entitic vol]85.6 aFXqpdaf41.6-102.9 [facility] HospitalCombeaumont hospital on above:Performed By: #### CBC, HEPXA, CMPX, MG, TSHX, TROPI #### [facility] [address] [place] [address] Art Museum Aide: Dexter Fried MD #### LIPR #### [address] [address] Art Museum Aide: Paco Tatum MDMonocytes (Bld) [#/Vol]0.34 10*3/uLNormal 0.10-1.20[facility] Brentwood HospitalComment on above:Performed By: #### CBC, HEPXA, CMPX, MG, TSHX, TROPI #### [facility] [address] [place] [address] Art Museum Aide: Dexter Fried MD #### LIPR #### [address] [address] Art Museum Aide: OCTAVIA Porteronocytes/100 WBC (Bld)4 %Normal3-12[facility] Brentwood HospitalComment on above:Performed By: #### CBC, HEPXA, CMPX, MG, TSHX, TROPI #### [facility] [address] [place] [address] Art Museum Aide: Dexter Fried MD #### LIPR #### [address] [address] Art Museum Aide: Paco Tatum MDNeutrophil (Seg)64 %Yhngww42-95NkfpzMercy Health Anderson Hospital on above:Performed By: #### CBC, HEPXA, CMPX, MG, TSHX, TROPI #### [facility] [place] [address] Art Museum Aide: Dexter Fried MD #### LIPR #### [address] [address] Art Museum Aide: Paco Tatum MDNRBC Automated0.0 per 100 WBCNormal0.0[facility] on above:Performed By: #### CBC, HEPXA, CMPX, MG, TSHX, TROPI #### [facility] [address] [place] [address] Art Museum Aide: Dexter Fried MD #### LIPR #### [address] [address] Art Museum Aide: Keysha Porter mean volume (Bld) [Entitic vol]9.3 fL Normal8.1-13.5[facility] on above:Performed By: #### CBC, HEPXA, CMPX, MG, TSHX, TROPI #### [facility] [address] [place] [address] Art Museum Aide: Dexter Fried MD #### LIPR #### [address] [address] Art Museum Aide: Dinorah Portertejocelyn (Bld) [#/Vol]377 10*3/jZGmcvfd502-580 [facility] on above:Performed By: #### CBC, HEPXA, CMPX, MG, TSHX, TROPI #### [facility] [address] [place] [address] Art Museum Aide: Dexter Fried MD #### LIPR #### [facility] [address] [place] [address] Art Museum Aide: PATRICIA Porter (Bld) [#/Vol]4.45 10*6/uLNormal3.95-5.11 [facility] Brentwood HospitalComment on above:Performed By: #### CBC, HEPXA, CMPX, MG, TSHX, TROPI #### [facility] [address] [place] [address] Art Museum Aide: Dexter Fried MD #### LIPR #### [address] [address] Art Museum Aide: Paco Tatum MDKINGS COUNTY H[facility] (Bld) [#/Vol]8.8 10*3/uLNormal3.5-11.3MForks Community HospitalComment on above:Performed By: #### CBC, HEPXA, CMPX, MG, TSHX, TROPI #### [facility] [address] [place] [address] Art Museum Aide: Dexter Fried MD #### LIPR #### [address] [address] Art Museum Aide: ALFIE Porter CHEST PORTABLEon [id number] CHEST PORTABLE EXAMINATION: ONE XRAY VIEW OF [...] Signed by: Elmira Cisneros MD 12/05/21 Final resultNormalMerCity Emergency Hospitaltable chest without acute process. MHPN RIS CONSOLIDATEDEXAMINATION: ONE XRAY VIEW OF THE CHEST 12/05/2021 3:55 pm COMPARISON: 11/30/2021 HISTORY: ORDERING SYSTEM PROVIDED HISTORY: cough Additional signs and symptoms: cough, sob and chest pain FINDINGS: The lungs are without acute focal process. No effusion or pneumothorax. The cardiomediastinal silhouette is stable. The osseous structures are intact without acute process. [facility] Elmira August MD - 12/05/2021 EXAMINATION: ONE XRAY VIEW OF THE CHEST 12/05/2021 3:55 pm COMPARISON: 11/30/2021 HISTORY: ORDERING SYSTEM PROVIDED HISTORY: cough Additional signs and symptoms: cough, sob and chest pain FINDINGS: The lungs are without acute focal process. No effusion or pneumothorax. The cardiomediastinal silhouette is stable. The osseous structures are intact without acute process. IMPRESSION: Stable chest without acute process. [email or web address] Phone: radiology Study observation (narrative)[email or web address] Phone: XR CHEST PORTABLEOrdered By: Elmira Cisneros on [id number] Work Phone: Prot. Electrophoresis, Uron [id number] Review:ELECTRONICALLY SIGNED. DEXTER FRIED M.D.NormalSuburban Community Hospital & Brentwood HospitalComment on above:Performed By: #### CBC, HEPXA, CMPX, MG, TSHX, TROPI #### [facility] [address] [place] [address] Art Museum Aide: Dexter Fried MD #### LIPR #### [facility] [address] [place] [address] Art Museum Aide: Paco Tatum MDUr.-Prot.Elect-InterSLIGHTLY ELEVATED TOTAL PROTEIN CONCENTRATION. PATTERN OBSERVED IS INCREASEDNormalSuburban Community Hospital & Brentwood HospitalComment on above:Result Comment: CONC. OF LOW MOLECULAR WEIGHT PROTEINS. PATTERN MAY BE SEEN WITH MINIMAL RENAL DYSFUNCTION OR WITH VARIOUS INFLAMMITORY/INFECTIOUS PROCESSES IN THE BODY (OVERFLOW PROTEINURIA).Performed By: #### CBC, HEPXA, CMPX, MG, TSHX, TROPI #### [facility] [place] [address] Art Museum Aide: Dexter Fried MD #### LIPR #### [address] [address] Art Museum Aide: Dash Porter [id number] Coag (Bld) [Time]s Critically high23.9-33.8[facility] Brentwood HospitalComment on above:Result Comment: IV Heparin Therapy Range: 62.0-94.0 TEST CONFIRMEDPerformed By: #### CBC, HEPXA, CMPX, MG, TSHX, TROPI #### [facility] [address] [place] [address] Art Museum Aide: Dexter Fried MD #### LIPR #### [address] [address] Art Museum Aide: Belgica PorterT Coag (Bld) [Time]25.9 eUrtcht17.9-33.8[facility] & Brentwood HospitalComment on above:Result Comment: IV Heparin Therapy Range: 62.0-94.0Performed By: #### CBC, HEPXA, CMPX, MG, TSHX, TROPI #### [facility] [address] [place] [address] Art Museum Aide: Dexter Fried MD #### LIPR #### [address] [address] Art Museum Aide: Belgica PorterT Coag (Bld) [Time]sCritically [facility] HospitalComment on above: IV Heparin Therapy Range: 62.0-94.0 TEST CONFIRMED Interpretation and review of laboratory resultsAbnormalMayo Clinic Health System[facility] Anti-Xa, Unfractionated Heparinon [id number]-XA Unfrac Heparin0.5[facility]– Chippewa ValleyCBCon 36-02-9597Osozdurxrlf distribution width (RBC) [Ratio] 14.8 %High11.8-14.4[facility] HospitalCombeaumont hospital on above:Performed By: #### CBC, HEPXA, CMPX, MG, TSHX, TROPI #### [facility] [address] [place] [address] Art Museum Aide: Dexter Fried MD #### LIPR #### [address] [address] Art Museum Aide: Paco Tatum MDHematocrit (Bld) [Volume fraction]33.3 %Low 36.3-47.1MForks Community HospitalComment on above:Performed By: #### CBC, HEPXA, CMPX, MG, TSHX, TROPI #### [facility] [address] [place] [address] Art Museum Aide: Dexter Fried MD #### LIPR #### [address] [address] Art Museum Aide: Paco Tatum MDHemoglobin (Bld) [Mass/Vol]10.2 g/dLLow11.9-15.1 [facility] HospitalCombeaumont hospital on above:Performed By: #### CBC, HEPXA, CMPX, MG, TSHX, TROPI #### [facility] [address] [place] [address] Art Museum Aide: Dexter Fried MD #### LIPR #### [address] [address] Art Museum Aide: OCTAVIA PorterCH (RBC) [Entitic mass]26.4 rrSwxppm18.2-33.5 [facility] HospitalCombeaumont hospital on above:Performed By: #### CBC, HEPXA, CMPX, MG, TSHX, TROPI #### [facility] [address] [place] [address] Art Museum Aide: Dexter Fried MD #### LIPR #### [address] [address] Art Museum Aide: OCTAVIA PorterCHC (RBC) [Mass/Vol]30.6 g/pMIeczrh16.4-34.8 [facility] HospitalCombeaumont hospital on above:Performed By: #### CBC, HEPXA, CMPX, MG, TSHX, TROPI #### [facility] [address] [place] [address] Art Museum Aide: Dexter Fried MD #### LIPR #### [address] [address] Art Museum Aide: OCTAVIA PorterCV (RBC) [Entitic vol]86.3 dRZiutxr80.6-102.9 [facility] HospitalCombeaumont hospital on above:Performed By: #### CBC, HEPXA, CMPX, MG, TSHX, TROPI #### [facility] [address] [place] [address] Art Museum Aide: Dexter Fried MD #### LIPR #### [address] [address] Art Museum Aide: Paco Tatum MDNRBC Automated0.0 per 100 WBCNormal0.0[facility] on above:Performed By: #### CBC, HEPXA, CMPX, MG, TSHX, TROPI #### [facility] [address] [place] [address] Art Museum Aide: Dexter Fried MD #### LIPR #### [address] [address] Art Museum Aide: RAHUL Porterlatelet mean volume (Bld) [Entitic vol]8.9 fL Normal8.1-13.5[facility] on above:Performed By: #### CBC, HEPXA, CMPX, MG, TSHX, TROPI #### [facility] [address] [place] [address] Art Museum Aide: Dexter Fried MD #### LIPR #### [address] [address] Art Museum Aide: Dinorah Portertesturdy memorial hospital (Bld) [#/Vol]314 10*3/pEWjblll572-674 [facility] on above:Performed By: #### CBC, HEPXA, CMPX, MG, TSHX, TROPI #### [facility] [address] [place] [address] Art Museum Aide: Dexter Fried MD #### LIPR #### [address] [address] Art Museum Aide: PATRICIA Porter (Bld) [#/Vol]3.86 10*6/uLLow3.95-5.11[facility] HospitalCombeaumont hospital on above:Performed By: #### CBC, HEPXA, CMPX, MG, TSHX, TROPI #### [facility] [address] [place] [address] Art Museum Aide: Dexter Fried MD #### LIPR #### [address] [address] Art Museum Aide: Paco Tatum MDKINGS COUNTY H[facility] (Bld) [#/Vol]10.0 10*3/uLNormal3.5-11.3MSt. John of God Hospital on above:Performed By: #### CBC, HEPXA, CMPX, MG, TSHX, TROPI #### [facility] [address] [place], [place] [address] Art Museum Aide: Dexter Fried MD #### LIPR #### [facility] [address] [place], [place] [phone] Art Museum Aide: Paco Tatum MDHematocrit (Bld) [Volume fraction]33.3 %Low36.3 - 47.1 %[facility] Memorial HospitalHemoglobin.gastrointestinal spec 1 Ql (Stl)10.2 g/dLLow11.9 - 15.1 g/dLOhiohealth Hardin Memorial HospitalInterpretation and review of laboratory resultsAbnormal [facility] (RBC) [Entitic mass]26.4 pg25.2 - 33.5 pgMercy Health Kings Mills HospitalHC (RBC) [Mass/Vol]30.6 g/dL28.4 - 34.8 g/dLMercy Health Kings Mills HospitalV (RBC) [Entitic vol]86.3 fL 82.6 - 102.9 fLOhiohealth Hardin Memorial HospitalNRBC Automated0.00.0 per 100 WBCFisher-Titus Medical Center HealthPlatelet distribution width (Bld) [Ratio]14.8 %High11.8 - 14.4 %[facility] Memorial HospitalPlatelet mean volume (Bld) [Entitic vol]8.9 fL8.1 - 13.5 fLFisher-Titus Medical Center HealthPlatelets (Bld) [#/Vol]314 10*3/uLOhiohealth Hardin Memorial HospitalRBC (Bld) [#/Vol]3.86 10*6/uLLow3.95 - 5.11 m/uL [facility] HospitalWBC (Bld) [#/Vol]10.0 10*3/uLTriHealth Bethesda Butler Hospital HealthErythrocyte distribution width (RBC) [Ratio]14.8 %High11.8-14.4[facility] Comment on above:Performed By: #### PT, TROPI, PTT, CBC #### [facility] [address] [place] [address] Art Museum Aide: Dexter Fried MDHematocrit (Bld) [Volume fraction]33.6 %Low 36.3-47.1[facility] Valley HospitalComment on above:Performed By: #### PT, TROPI, PTT, CBC #### [facility] [address] [place] [address] Art Museum Aide: Dexter Fried MDHemoglobin (Bld) [Mass/Vol]10.4 g/dLLow 11.9-15.1MForks Community HospitalCombeaumont hospital on above:Performed By: #### PT, TROPI, PTT, CBC #### [facility] [address] [place] [address] Art Museum Aide: AMIRA Herrera (RBC) [Entitic mass]26.7 cpDzqlnp73.2-33.5 [facility] on above:Performed By: #### PT, TROPI, PTT, CBC #### [facility] [address] [place] [address] Art Museum Aide: AMIRA HerreraC (RBC) [Mass/Vol]31.0 g/jKHjatzr63.4-34.8 [facility] on above:Performed By: #### PT, TROPI, PTT, CBC #### [facility] [address] [place] [address] Art Museum Aide: OCTAVIA HerreraCV (RBC) [Entitic vol]86.2 yWGqstuq92.6-102.9 [facility] on above:Performed By: #### PT, TROPI, PTT, CBC #### [facility] [address] [place] [address] Art Museum Aide: JANNETH HerreraBC Automated0.0 per 100 WBCNormal0.0[facility] on above:Performed By: #### PT, TROPI, PTT, CBC #### [facility] [address] [place] [address] Art Museum Aide: Keysha Herrera mean volume (Bld) [Entitic vol]9.1 fL Normal8.1-13.5[facility] on above:Performed By: #### PT, TROPI, PTT, CBC #### [facility] [address] [facility] [place] [address] Art Museum Aide: Jason Herrera (Bld) [#/Vol]342 10*3/zXNiwvth533-181 [facility] HospitalCombeaumont hospital on above:Performed By: #### PT, TROPI, PTT, CBC #### [facility] [address] [place] [address] Art Museum Aide: PATRICIA Herrera (Bld) [#/Vol]3.90 10*6/uLLow3.95-5.11[facility] HospitalCombeaumont hospital on above:Performed By: #### PT, TROPI, PTT, CBC #### [facility] [address] [facility] [place] [address] Art Museum Aide: Dexter Fried MDWBC (Bld) [#/Vol]10.4 10*3/uLNormal3.5-11.3 [facility] HospitalCombeaumont hospital on above:Performed By: #### PT, TROPI, PTT, CBC #### [facility] [address] [facility] [place] [address] Art Museum Aide: Dexter Fried MDHematocrit (Bld) [Volume fraction]33.6 %Low36.3 - 47.1 %[facility] HospitalHemoglobin.gastrointestinal spec 1 Ql (Stl)10.4 g/dLLow11.9 - 15.1 g/dLOhiohealth Hardin Memorial HospitalInterpretation and review of laboratory resultsAbnormal [facility] (RBC) [Entitic mass]26.7 pg25.2 - 33.5 pgMercy Health Kings Mills HospitalHC (RBC) [Mass/Vol]31.0 g/dL28.4 - 34.8 g/dLMercy Health Kings Mills HospitalV (RBC) [Entitic vol]86.2 fL 82.6 - 102.9 fLOhiohealth Hardin Memorial HospitalNRBC Automated0.00.0 per 100 WBCOhiohealth Hardin Memorial HospitalPlatelet distribution width (Bld) [Ratio]14.8 %High11.8 - 14.4 %[facility] HospitalPlatelet mean volume (Bld) [Entitic vol]9.1 fL8.1 - 13.5 fLOhiohealth Hardin Memorial HospitalPlatelets (Bld) [#/Vol]342 10*3/uLOhiohealth Hardin Memorial HospitalRBC (Bld) [#/Vol]3.90 10*6/uLLow3.95 - 5.11 m/uL [facility] HospitalWBC (Bld) [#/Vol]10.4 10*3/uLTriHealth Bethesda Butler Hospital HealthCT CHEST PULMONARY EMBOLISM W CONTRASTon [id number] CHEST PULMONARY EMBOLISM W CONTRAST EXAMINATION: CTA [...] were called by Dr. Ernie Gamino to [employer] Bandar Vaughan on 11/30/2021 at 10:54 p.m. hours. RECOMMENDATIONS: 1.3 cm incidental right thyroid nodule with heterogeneous and enlarged thyroid. Recommend thyroid US. Reference: J Am Sukhjinder Radiol. 2015 Oct;12(2): 143-50 Interpreted by: Ernie Gamino DO Signed by: Ernie Gamino DO 11/30/21 Final resultNormalSuburban Community Hospital & Brentwood HospitalComp Metabolic Pr/rfx MGon 12-01-2021 (cont.)NormalSuburban Community Hospital & Brentwood HospitalComment on above:Result Comment: Average GFR for 20-29 years old: 116 mL/min/1.73sq m Chronic Kidney Disease: <60 mL/min/1.73sq m Kidney failure: <15 mL/min/1.73sq m eGFR calculated using average adult body mass. Additional eGFR calculator available at: http://www.cVidya.com/multiple_crcl_2012.htmPerformed By: #### CBC, HEPXA, CMPX, MG, TSHX, TROPI #### [facility] [address] [place] [address] Art Museum Aide: Dexter Fried MD #### LIPR #### [facility]Rank [address] [place] [address] Art Museum Aide: Paco Madoff, MDAlbumin [Mass/Vol]3.4 g/dLLow3.5-5.2[facility]y [facility] on above:Performed By: #### CBC, HEPXA, CMPX, MG, TSHX, TROPI #### [facility] [address] [place] [address] Art Museum Aide: Dexter Fried MD #### LIPR #### [address] [address] Art Museum Aide: Angela Porterline Phos93 U/ZYkyryd11-519NkfbxMercy Health Anderson Hospital on above:Performed By: #### CBC, HEPXA, CMPX, MG, TSHX, TROPI #### [facility] [address] [place] [address] Art Museum Aide: Dexter Fried MD #### LIPR #### [address] [address] Art Museum Aide: Paco Tatum MDALT [Catalytic activity/Vol]28 U/LNormal5-33 [facility] on above:Performed By: #### CBC, HEPXA, CMPX, MG, TSHX, TROPI #### [facility] [address] [place] [address] Art Museum Aide: Dexter Fried MD #### LIPR #### [address] [address] Art Museum Aide: Flynn Porter gap [Moles/Vol]7 mmol/LLow9-17[facility] on above:Performed By: #### CBC, HEPXA, CMPX, MG, TSHX, TROPI #### [facility] [address] [place] [address] Art Museum Aide: Dexter Fried MD #### LIPR #### [address] [address] Art Museum Aide: Paco Tatum MDAST [Catalytic activity/Vol]16 U/LNormal<32MerLegacy HealthComment on above:Performed By: #### CBC, HEPXA, CMPX, MG, TSHX, TROPI #### [facility] [address] [place] [address] Art Museum Aide: Dexter Fried MD #### LIPR #### [address] [address] Art Museum Aide: Paco Tatum MDBilirubin [Mass/Vol]0.18 mg/dLLow0.3-1.2MForks Community HospitalComment on above:Performed By: #### CBC, HEPXA, CMPX, MG, TSHX, TROPI #### [facility] [address] [place] [address] Art Museum Aide: Dexter Fried MD #### LIPR #### [address] [address] Art Museum Aide: Paco Tatum MDBUN/CRE Eucww81Zbst6-94CrhjiSuburban Community Hospital & Brentwood Hospital Comment on above:Performed By: #### CBC, HEPXA, CMPX, MG, TSHX, TROPI #### [facility] [address] [place] [address] Art Museum Aide: Dexter Fried MD #### LIPR #### [address] [address] Art Museum Aide: CELESTE Porteralcium [Mass/Vol]8.5 mg/dLLow8.6-10.4Sub[facility] Hospital & Brentwood HospitalComment on above:Performed By: #### CBC, HEPXA, CMPX, MG, TSHX, TROPI #### [facility] [address] [place] [address] Art Museum Aide: Dexter Fried MD #### LIPR #### [address] [address] Art Museum Aide: CELESTE Porterhloride [Moles/Vol]105 mmol/BZspnjo59-998XbajpSuburban Community Hospital & Brentwood HospitalComment on above:Performed By: #### CBC, HEPXA, CMPX, MG, TSHX, TROPI #### [facility] [address] [place] [address] Art Museum Aide: Dexter Fried MD #### LIPR #### [address] [address] Art Museum Aide: CELESTE PorterO2 [Moles/Vol]25 mmol/KEsevuy17-39QgeobSuburban Community Hospital & Brentwood HospitalCombeaumont hospital on above:Performed By: #### CBC, HEPXA, CMPX, MG, TSHX, TROPI #### [facility] [address] [place] [address] Art Museum Aide: Dexter Fried MD #### LIPR #### [address] [address] Art Museum Aide: CELESTE Porterreatinine [Mass/Vol]0.61 mg/dLNormal0.50-0.90 [facility] Brentwood HospitalCombeaumont hospital on above:Performed By: #### CBC, HEPXA, CMPX, MG, TSHX, TROPI #### [facility] [address] [place] [address] Art Museum Aide: Dexter Fried MD #### LIPR #### [address] [address] Art Museum Aide: Paco Madoff, MDGFR, Amer>60Normal>60MerLegacy HealthCombeaumont hospital on above:Performed By: #### CBC, HEPXA, CMPX, MG, TSHX, TROPI #### [facility] [address] [place] [address] Art Museum Aide: Dexter Fried MD #### LIPR #### [address] [address] Art Museum Aide: Paco Tatum MDGFR,non Amer>60Normal>60[facility] HospitalCombeaumont hospital on above:Performed By: #### CBC, HEPXA, CMPX, MG, TSHX, TROPI #### [facility] [address] [place] [address] Art Museum Aide: Dexter Fried MD #### LIPR #### [address] [address] Art Museum Aide: Paco Tatum MDGlucose [Mass/Vol]90 mg/iDNgebgd90-66Lfpis[address] [place], [place] [address]Combeaumont hospital on above:Performed By: #### CBC, HEPXA, CMPX, MG, TSHX, TROPI #### [facility] [address] [place] [address] Art Museum Aide: Dexter Fried MD #### LIPR #### [address] [address] Art Museum Aide: RAHUL Porterotassium [Moles/Vol]4.0 mmol/LNormal3.7-5.3 [facility] Brentwood HospitalCombeaumont hospital on above:Performed By: #### CBC, HEPXA, CMPX, MG, TSHX, TROPI #### [facility] [address] [place] [address] Art Museum Aide: Dexter Fried MD #### LIPR #### [address] [address] Art Museum Aide: RAHUL Porterrotein [Mass/Vol]6.3 g/dLLow6.4-8.3MForks Community HospitalComment on above:Performed By: #### CBC, HEPXA, CMPX, MG, TSHX, TROPI #### [facility] [address] [place] [address] Art Museum Aide: Dexter Fried MD #### LIPR #### [address] [address] Art Museum Aide: KELLY Porterodium [Moles/Vol]137 mmol/WHeyzfk750-991YwqxwSuburban Community Hospital & Brentwood HospitalComment on above:Performed By: #### CBC, HEPXA, CMPX, MG, TSHX, TROPI #### [facility] [address] [place] [address] Art Museum Aide: Dexter Fried MD #### LIPR #### [address] [address] Art Museum Aide: Paco Tatum MDUrea nitrogen [Mass/Vol]13 mg/dLNormal6-20[facility] & Brentwood HospitalComment on above:Performed By: #### CBC, HEPXA, CMPX, MG, TSHX, TROPI #### [facility] [address] [place] [address] Art Museum Aide: Dexter Fried MD #### LIPR #### [address] [address] Art Museum Aide: CELESTE Porteromprehensive Metabolic Panel w/ Reflex to MGon 07-72-4771Apfrcsp [Mass/Vol]3.4 g/dLLow3.5 - 5.2 g/dLFisher-[facility] HealthALP (Bld) [Catalytic activity/Vol]93 U/L35 - 104 U/LMercy HealthALT [Catalytic activity/Vol]28 U/L5 - 33 U/LMercy HealthAnion gap [Moles/Vol]7 mmol/LLow9 - 17 mmol/LMercy HealthAST [Catalytic activity/Vol]16 U/L<32Mer HealthBilirubin [Mass/Vol]0.18 mg/dLLow0.3 - 1.2 mg/dLMercy HealthCalcium [Mass/Vol]8.5 mg/dLLow 8.6 - 10.4 mg/dLMercy HealthChloride [Moles/Vol]105 mmol/L98 - 107 mmol/LMercy HealthCO2 [Moles/Vol]25 mmol/L20 - 31 mmol/LMercy HealthCreatinine [Mass/Vol] 0.61 mg/dL0.50 - 0.90 mg/dLOhiohealth Hardin Memorial HospitalFree PSA/Total PSA [Mass fraction]6.3 g/dLLow6.4 - 8.3 g/dLFisher-Titus Medical Center HealthGFR >60>60 mL/minFisher-Titus Medical Center Health GFR Non->60>60 mL/minMercy HealthGFR/1.73 sq M.predicted MDRD (S/P/Bld) [Vol rate/Area][facility] HospitalComment on above:Average GFR for 20-29 years old: 116 mL/min/1.73sq m Chronic Kidney Disease: <60 mL/min/1.73sq m Kidney failure: <15 mL/min/1.73sq m eGFR calculated using average adult body mass. Additional eGFR calculator available at: http://www.cVidya.[employer]/multiple_crcl_2011.htm Glucose [Mass/Vol]90 mg/dL70 - 99 mg/dLFisher-Titus Medical Center HealthInterpretation and review of laboratory resultsAbnormalMer HealthPotassium [Moles/Vol]4.0 mmol/L3.7 - 5.3 mmol/LMercy HealthSodium [Moles/Vol]137 mmol/L135 - 144 mmol/LMercy HealthUrea nitrogen (BldV) [Mass/Vol]13 mg/dL6 - 20 mg/dLMercy HealthUrea nitrogen/Creatinine (Bld) [Mass ratio]21HighMer HealthEchocardiogram 2D W M-Modeon [id number] [facility] Transthoracic Echocardiography Report (TTE) Patient Name MILLIE Date of Study 12/01/2021 SHIRA Date of 1995 Gender Female Age 26 year(s) Race Room Number 2042 Height: 61 inch, 154.94 cm Corporate ID [id number] Weight: 279 pounds, 126.6 kg # Patient Acct [id number] BSA: 2.18 m^2 BMI: 52.72 # kg/m^2 MR # [id number] [employer] Public Ashley Mendez Interpreting Physician Mata Mar Fellow Referring Nurse Practitioner Interpreting Referring Physician Camelia Medina Fellow Type of Study TTE procedure:2D Echocardiogram, M-Mode, Doppler, Color Doppler. Procedure Date Date: 12/01/2021 Start: 02:19 PM Study Location: [facility] Technical Quality: Adequate visualization Indications:Pulmonary embolus. [...] E' velocity:0.09 m/s Lateral Wall E' velocity:0.13 m/sMHPN Mata Stapleton MD - 12/01/2021 [facility] Transthoracic Echocardiography Report (TTE) Patient Name MILLIE Date of Study 12/01/2021 SHIRA Date of 1995 Gender Female Age 26 year(s) Race Room Number 2042 Height: 61 inch, 154.94 cm Corporate ID [id number] Weight: 279 pounds, 126.6 kg # Patient Acct [id number] BSA: 2.18 m^2 BMI: 52.72 # kg/m^2 MR # [id number] [employer] Ashley Mendez Interpreting Physician Mata Mar Fellow Referring Nurse Practitioner Interpreting Referring Physician Camelia Medina Fellow Type of Study TTE procedure:2D Echocardiogram, M-Mode, Doppler, Color Doppler. Procedure Date Date: 12/01/2021 Start: 02:19 PM Study Location: [facility] Technical Quality: Adequate visualization Indications:Pulmonary embolus. [...] E' velocity:0.09 m/s Lateral Wall E' velocity:0.13 m/sMercy Health Work Phone: echocardiogram 2D W M-ModeOrdered By: Mata aMr on 74-90-1736CcfkcMartins Ferry Hospital Phone: Heparin Anti-Xaon 53-40-7233Lwszxlw Anti-Xa0.50 IU/L Normal0.30-0.70[facility] & Brentwood HospitalComment on above:Performed By: #### CBC, HEPXA, CMPX, MG, TSHX, TROPI #### [facility] [address] [place], [place] [phone] Art Museum Aide: Dexter Fried MD #### LIPR #### [facility] [employer] [address] [place] [phone] Art Museum Aide: Paco Tatum MDLipid Profileon 19-36-8481Vjvzztjixog [Mass/Vol] 217 mg/dLHigh<200MerLegacy HealthComment on above:Result Comment: Cholesterol Guidelines: <200 Desirable 200-240 Borderline >240 UndesirablePerformed By: #### CBC, HEPXA, CMPX, MG, TSHX, TROPI #### [facility] [address] [place] [address] Art Museum Aide: Dexter Fried MD #### LIPR #### [facility] [employer] [address] [place] [phone] Art Museum Aide: CELESTE Porterholesterol in HDL [Mass/Vol]49 mg/dLNormal>40 [facility] on above:Result Comment: HDL Guidelines: <40 Undesirable 40-59 Borderline >59 DesirablePerformed By: #### CBC, HEPXA, CMPX, MG, TSHX, TROPI #### [facility] [address] [place] [address] Art Museum Aide: Dexter Fried MD #### LIPR #### [address] [address] Art Museum Aide: CELESTE Porterholesterol in LDL [Mass/Vol]112 mg/dLNormal 0-130[facility] on above:Result Comment: LDL Guidelines: <100 Desirable 100-129 Near to/above Desirable 130-159 Borderline >159 Undesirable Direct (measured) LDL and calculated LDL are not interchangeable tests.Performed By: #### CBC, HEPXA, CMPX, MG, TSHX, TROPI #### [facility] [address] [place] [address] Art Museum Aide: Dexter Fried MD #### LIPR #### [address] [address] Art Museum Aide: Alejandro Porter.total/Cholesterol in HDL [Mass ratio]4.4 {ratio}Normal<5Mer[facility] HospitalCombeaumont hospital on above:Performed By: #### CBC, HEPXA, CMPX, MG, TSHX, TROPI #### [facility] [place] [address] Art Museum Aide: Dexter Fried MD #### LIPR #### [address] [address] Art Museum Aide: Paco Tatum MDTriglyceride [Mass/Vol]281 mg/dLHigh<150[facility] on above:Result Comment: Triglyceride Guidelines: <150 Desirable 150-199 Borderline 200-499 High >499 Very high Based on AHA Guidelines for fasting triglyceride, June 2012.Performed By: #### CBC, HEPXA, CMPX, MG, TSHX, TROPI #### [facility] [address] [place] [address] Art Museum Aide: Dexter Fried MD #### LIPR #### [facility] [address] [place] [phone] Art Museum Aide: Paco Tatum MDLipid panel - fastingon 72-85-7046Pvkugztpobv [Mass/Vol]217 mg/dLHigh<200Mercy HealthComment on above: Cholesterol Guidelines: <200 Desirable 200-240 Borderline >240 Undesirable Cholesterol in HDL [Mass/Vol]49 mg/dL>40Mercy HealthComment on above: HDL Guidelines: <40 Undesirable 40-59 Borderline >59 Desirable Cholesterol in LDL [Mass/Vol]112 mg/dL0 - 130 mg/dLMer HealthComment on above: LDL Guidelines: <100 Desirable 100-129 Near to/above Desirable 130-159 Borderline >159 Undesirable Direct (measured) LDL and calculated LDL are not interchangeable tests. Cholesterol.total/Cholesterol in HDL [Mass ratio]4.4 {ratio}<5[facility] Interpretation and review of laboratory resultsAbnormalMerProvidence St. Joseph's HospitalTriglyceride [Mass/Vol]281 mg/dLHigh<150Mercy HealthComment on above: Triglyceride Guidelines: <150 Desirable 150-199 Borderline 200-499 High >499 Very high Based on AHA Guidelines for fasting triglyceride, June 2012. [facility] HospitalMagnesiumon 07-37-4151Hxqyyxdhi [Mass/Vol]1.9 mg/dLNormal1.6-2.6 [facility] Brent[facility] HospitalComment on above:Performed By: #### CBC, HEPXA, CMPX, MG, TSHX, TROPI #### [facility] [address] [place], [place] [phone] Art Museum Aide: Dexter Fried MD #### LIPR #### [address] [phone] Art Museum Aide: Jani Portergnesium [Mass/Vol]1.9 mg/dL1.6 - 2.6 mg/dL [facility] HospitalNo Panel Informationon 67-74-2740KsaicRogers Memorial Hospital - [place] Glucose Fingerstickon 53-92-9525Bigzdms [Mass/Vol]91 mg/dL65 - 105 mg/dLFormerly named [facility] 16-70-1415LPY Coag (PPP) [Relative time]1.3 {INR}NormalSuburban Community Hospital & Brentwood HospitalComment on above:Result Comment: Non-therapeutic Range: INR = 0.9-1.2 Therapeutic Range: Moderate Anticoagulant Intensity: INR = 2.0-3.0 High Anticoagulant Intensity: INR = 2.5-3.5Performed By: #### CBC, HEPXA, CMPX, MG, TSHX, TROPI #### [facility] [address] [place] [address] Art Museum Aide: Dexter Fried MD #### LIPR #### [place] [address] Art Museum Aide: NAT Porter Coag (PPP) [Time]16.0 sHigh11.5-14.2Mer[facility] Multicare Valley HospitalComment on above:Performed By: #### CBC, HEPXA, CMPX, MG, TSHX, TROPI #### [facility] [address] [place] [address] Art Museum Aide: Dexter Fried MD #### LIPR #### [place] [address] Art Museum Aide: Paco Tatum MDINR Coag (PPP) [Relative time]1.1 {INR}Normal [facility] Brent[facility] HospitalCombeaumont hospital on above:Result Comment: Non-therapeutic Range: INR = 0.9-1.2 Therapeutic Range: Moderate Anticoagulant Intensity: INR = 2.0-3.0 High Anticoagulant Intensity: INR = 2.5-3.5Performed By: #### CBC, HEPXA, CMPX, MG, TSHX, TROPI #### [facility] [address] [place] [address] Art Museum Aide: Dexter Fried MD #### LIPR #### [address] [phone] Art Museum Aide: NAT Porter Coag (PPP) [Time]14.0 oPkluog84.5-14.2Mer[facility] Valley HospitalComment on above:Performed By: #### CBC, HEPXA, CMPX, MG, TSHX, TROPI #### [facility] [address] [place] [address] Art Museum Aide: Dexter Fried MD #### LIPR #### [address] [address] Art Museum Aide: Dariel Porter. Electrophoresis, Uron 97-83-5006Rwuhy Protein Conc.15 mg/dLNormalSuburban Community Hospital & Brentwood HospitalComment on above:Performed By: #### CBC, HEPXA, CMPX, MG, TSHX, TROPI #### [facility] [address] [place] [address] Art Museum Aide: Dexter Fried MD #### LIPR #### [address] [address] Art Museum Aide: RAHUL Porterrotein / creatinine ratio, urineon 12-01-2021 Creatinine, Ur96.1 mg/dL28.0 - 217.0 mg/dLMercy HealthProtein (U) [Mass/Vol]15 mg/dLMercy HealthComment on above:No normal range established.Urine Total Protein Creatinine Ratio0.16Mercy HealthMercy HealthProtein,Tot,[place] Uron 73-33-1500Mkjlnnzuus [Mass/Vol]96.1 mg/tGLfhvsm25.0-217.0[facility] Comment on above:Performed By: #### CBC, HEPXA, CMPX, MG, TSHX, TROPI #### [facility] [place] [address] Art Museum Aide: Dexter Fried MD #### LIPR #### [address] [address] Art Museum Aide: Paco Tatum MDTot Prot. Conc.15 mg/dLNoWood County HospitalComment on above:Result Comment: No normal range established.Performed By: #### CBC, HEPXA, CMPX, MG, TSHX, TROPI #### [facility] [address] [place] [address] Art Museum Aide: Dexter Fried MD #### LIPR #### [address] [address] Art Museum Aide: Paco Tatum MDTP/Cre Ratio0.02Yxwhrh7.00-0.20[facility] Brentwood HospitalComment on above:Performed By: #### CBC, HEPXA, CMPX, MG, TSHX, TROPI #### [facility] [address] [place] [address] Art Museum Aide: Dexter Fried MD #### LIPR #### [address] [address] Art Museum Aide: RAHUL Porterrotime-INRon 79-31-9662QDS Coag (Bld) [Relative time]1.3 {INR}[facility] HospitalCombeaumont hospital on above: Non-therapeutic Range: INR = 0.9-1.2 Therapeutic Range: Moderate Anticoagulant Intensity: INR = 2.0-3.0 High Anticoagulant Intensity: INR = 2.5-3.5 Interpretation and review of laboratory resultsAbnormalMercy HealthPT Coag (PPP) [Time]16 [facility] w/reflex to FT4on 79-53-6094WBQ Qn2.20 m[IU]/LNormal0.30-5.00[facility] on above:Performed By: #### CBC, HEPXA, CMPX, MG, TSHX, TROPI #### [facility] [address] [place] [address] Art Museum Aide: Dexter Fried MD #### LIPR #### [facility] [place], [place] [phone] Art Museum Aide: Paco Tatum MDPEACEHEALTH ST. [facility] Qn2.20 m[IU]/[facility] Health Systemoponinon 14-64-0407Wygweapx, High Sens<2Shnqqm7-76BxufySuburban Community Hospital & Brentwood HospitalCombeaumont hospital on above:Result Comment: High Sensitivity Troponin values cannot be compared with other Troponin methodologies. Patients with high levels of Biotin oral intake (i.e >5mg/day) may have falsely decreased Troponin levels. Samples collected within 8 hours of biotin intake may require additional information for diagnosis.Performed By: #### CBC, HEPXA, CMPX, MG, TSHX, TROPI #### [facility] [address] [place] [address] Art Museum Aide: Dexter Fried MD #### LIPR #### [facility] [employer] [address] [place] [phone] Art Museum Aide: Yuri Porter, High Sensitivity<60 - 14 ng/[facility] on above: High Sensitivity Troponin values cannot be compared with other Troponin methodologies. Patients with high levels of Biotin oral intake (i.e >5mg/day) may have falsely decreased Troponin levels. Samples collected within 8 hours of biotin intake may require additional information for diagnosis. Troponin, High Sens<5Uzsacn5-52FiierSuburban Community Hospital & Brentwood HospitalCombeaumont hospital on above:Result Comment: High Sensitivity Troponin values cannot be compared with other Troponin methodologies. Patients with high levels of Biotin oral intake (i.e >5mg/day) may have falsely decreased Troponin levels. Samples collected within 8 hours of biotin intake may require additional information for diagnosis.Performed By: #### CBC, HEPXA, CMPX, MG, TSHX, TROPI #### [facility] [address] [place], [place] [phone] Art Museum Aide: Dexter Fried MD #### LIPR #### [address] [phone] Art Museum Aide: Yuri Porter, High Sensitivity<60 - 14 ng/LMMercy Health Perrysburg Hospital on above: High Sensitivity Troponin values cannot be compared with other Troponin methodologies. Patients with high levels of Biotin oral intake (i.e >5mg/day) may have falsely decreased Troponin levels. Samples collected within 8 hours of biotin intake may require additional information for diagnosis. Holzer Hospitalmaxim, High Sens<8Ubwcln7-88Iensr [facility] on above:Result Comment: High Sensitivity Troponin values cannot be compared with other Troponin methodologies. Patients with high levels of Biotin oral intake (i.e >5mg/day) may have falsely decreased Troponin levels. Samples collected within 8 hours of biotin intake may require additional information for diagnosis.Performed By: #### CBC, HEPXA, CMPX, MG, TSHX, TROPI #### [facility] [address] [place], [place] [phone] Art Museum Aide: Dexter Fried MD #### LIPR #### [place] [address] [place], [place] [phone] Art Museum Aide: Dash Porter 90-74-7458xBLB Coag (Bld) [Time]25.9 s [facility] on above: IV Heparin Therapy Range: 62.0-94.0 [facility] Natri. Peptideon 91-51-2008Utefcmvjgcf peptide B (Bld) [Mass/Vol]31 pg/mLNormal<300Mer[facility] Coffee City HospitalComment on above:Result Comment: An age-independent cutoff point of 300 pg/ml has a 98% negative predictive value excluding acute heart failure.Performed By: #### CBC, HEPXA, CMPX, MG, TSHX, TROPI #### [facility] [address] [place], [place] [phone] Art Museum Aide: Dexter Fried MD #### LIPR #### [facility] [address] [place], [place] [phone] Art Museum Aide: Paco Tatum MDBrain Natriuretic Peptideon 11-30-2021 Natriuretic peptide B (Bld) [Mass/Vol]31 pg/mL<300Ohio[facility] Hardin Memorial HospitalComment on above: An age-independent cutoff point of 300 pg/ml has a 98% negative predictive value excluding acute heart failure. CBC with Auto Differentialon 56-01-4700Efqmrubf Eos #0.22MerProvidence St. Joseph's HospitalAbsolute Immature Granulocyte0.11Ohiohealth Hardin Memorial HospitalAbsolute Lymph #2.99MercValley HealthAbsolute Towns #0.61Ohio[facility] Hardin Memorial HospitalBasophils (Bld) [#/Vol]0.08 10*3/uLOhiohealth Hardin Memorial Hospital Basophils/100 WBC (Bld)1 %0 - 2 %[facility] HospitalEosinophils/100 WBC (Bld)2 %1 - 4 % [facility] HospitalHematocrit (Bld) [Volume fraction]35.0 %Low36.3 - 47.1 %[facility] Hemoglobin.gastrointestinal spec 1 Ql (Stl)10.8 g/dLLow11.9 - 15.1 g/dLOhiohealth Hardin Memorial HospitalImmature granulocytes/100 WBC (Bld)1 %Qzth7OrjgjOhiohealth Hardin Memorial HospitalInterpretation and review of laboratory resultsAbnormalOhiohealth Hardin Memorial HospitalLymphocytes/100 WBC (Bld)29 %24 - 43 %[facility] HospitalH (RBC) [Entitic mass]26.6 pg25.2 - 33.5 pgMercy Health Kings Mills HospitalHC (RBC) [Mass/Vol]30.9 g/dL28.4 - 34.8 g/dLMercy Health Kings Mills HospitalV (RBC) [Entitic vol]86.2 fL82.6 - 102.9 fLOhiohealth Hardin Memorial HospitalMonocytes/100 WBC (Bld)6 %3 - 12 %[facility] HospitalNRBC Automated0.00.0 per 100 WBCOhiohealth Hardin Memorial HospitalPlatelet distribution width (Bld) [Ratio] 14.8 %High11.8 - 14.4 %[facility] Memorial HospitalPlatelet mean volume (Bld) [Entitic vol]9.1 fL8.1 - 13.5 fLFisher-Titus Medical Center HealthPlatelets (Bld) [#/Vol]351 10*3/uLOhiohealth Hardin Memorial HospitalRBC (Bld) [#/Vol]4.06 10*6/uL3.95 - 5.11 m/[facility] Barber[facility] CampusRBC (Bld) [#/Vol] ANISOCYTOSIS PRESENTOhiohealth Hardin Memorial HospitalSegmented neutrophils/100 WBC (Bld)61 %36 - 65 % [facility] Memorial HospitalSegs Absolute6.17Ohio[facility] Hard[facility] Memorial HospitalWBC (Bld) [#/Vol]10.2 10*3/[facility] HospitalCBC with Diffon [id number]. Basophil0.08 k/uLNormal 0.00-0.20[facility] Brentwood HospitalComment on above:Performed By: #### CBC, HEPXA, CMPX, MG, TSHX, TROPI #### [facility] [address] [place] [address] Art Museum Aide: Dexter Fried MD #### LIPR #### [place] [id number] Art Museum Aide: MDAbs. GermanImm.Granulocyte0.11 k/uLNormal0.00-0.30[facility] Brentwood HospitalComment on above:Performed By: #### CBC, HEPXA, CMPX, MG, TSHX, TROPI #### [facility] [place], [place] [phone] Art Museum Aide: Dexter Fried MD #### LIPR #### [address] [phone] Art Museum Aide: Paco Madoff, MDAbs.Neutrophil (Seg)6.17 k/uLNormal1.50-8.10 [facility] on above:Performed By: #### CBC, HEPXA, CMPX, MG, TSHX, TROPI #### [facility] [address] [place] [address] Art Museum Aide: Dexter Fried MD #### LIPR #### [address] [address] Art Museum Aide: Paco Tatum MDBasophils/100 WBC (Bld)1 %Normal0-2MForks Community HospitalCombeaumont hospital on above:Performed By: #### CBC, HEPXA, CMPX, MG, TSHX, TROPI #### [facility] [address] [place] [address] Art Museum Aide: Dexter Fried MD #### LIPR #### [place] [address] Art Museum Aide: Paco Tatum MDEosinophils (Bld) [#/Vol]0.22 10*3/uLNormal 0.00-0.44[facility] on above:Performed By: #### CBC, HEPXA, CMPX, MG, TSHX, TROPI #### [facility] [address] [place] [address] Art Museum Aide: Dexter Fried MD #### LIPR #### [address] [address] Art Museum Aide: Paco Tatum MDEosinophils/100 WBC (Bld)2 %Normal1-4[facility] on above:Performed By: #### CBC, HEPXA, CMPX, MG, TSHX, TROPI #### [facility] [address] [place] [address] Art Museum Aide: Dexter Fried MD #### LIPR #### [address] [address] Art Museum Aide: Paco Tatum MDErythrocyte distribution width (RBC) [Ratio]14.8 %High11.8-14.4[facility] on above:Performed By: #### CBC, HEPXA, CMPX, MG, TSHX, TROPI #### [facility] [address] [place] [address] Art Museum Aide: Dexter Fried MD #### LIPR #### [address] [address] Art Museum Aide: Paco Tatum MDHematocrit (Bld) [Volume fraction]35.0 %Low 36.3-47.1[facility]y [facility] HospitalCombeaumont hospital on above:Performed By: #### CBC, HEPXA, CMPX, MG, TSHX, TROPI #### [facility] [address] [place] [address] Art Museum Aide: Dexter Fried MD #### LIPR #### [address] [address] Art Museum Aide: Paco Tatum MDHemoglobin (Bld) [Mass/Vol]10.8 g/dLLow11.9-15.1 [facility] on above:Performed By: #### CBC, HEPXA, CMPX, MG, TSHX, TROPI #### [facility] [address] [place] [address] Art Museum Aide: Dexter Fried MD #### LIPR #### [address] [address] Art Museum Aide: Paco Tatum MDImmature granulocytes/100 WBC (Bld)1 %Knbf1HxwosSuburban Community Hospital & Brentwood HospitalCombeaumont hospital on above:Performed By: #### CBC, HEPXA, CMPX, MG, TSHX, TROPI #### [facility] [address] [place] [address] Art Museum Aide: Dexter Fried MD #### LIPR #### [address] [address] Art Museum Aide: Paco Tatum MDLymphocytes (Bld) [#/Vol]2.99 10*3/uLNormal 1.10-3.70[facility] HospitalCombeaumont hospital on above:Performed By: #### CBC, HEPXA, CMPX, MG, TSHX, TROPI #### [facility] [address] [place] [address] Art Museum Aide: Dexter Fried MD #### LIPR #### [address] [address] Art Museum Aide: Paco Tatum MDLymphocytes/100 WBC (Bld)29 %Tzbhij02-57KxhxtSuburban Community Hospital & Brentwood HospitalCombeaumont hospital on above:Performed By: #### CBC, HEPXA, CMPX, MG, TSHX, TROPI #### [facility] [address] [place] [address] Art Museum Aide: Dexter Fried MD #### LIPR #### [address] [address] Art Museum Aide: OCTAVIA PorterCH (RBC) [Entitic mass]26.6 rpMiglvd78.2-33.5 [facility] HospitalCombeaumont hospital on above:Performed By: #### CBC, HEPXA, CMPX, MG, TSHX, TROPI #### [facility] [address] [place] [phone] Art Museum Aide: Dexter Fried MD #### LIPR #### [address] [address] Art Museum Aide: OCTAVIA PorterCHC (RBC) [Mass/Vol]30.9 g/rFRufjon40.4-34.8 [facility] Brent[facility] HospitalComment on above:Performed By: #### CBC, HEPXA, CMPX, MG, TSHX, TROPI #### [facility] [address] [place] [address] Art Museum Aide: Dexter Fried MD #### LIPR #### [address] [address] Art Museum Aide: OCTAVIA PorterCV (RBC) [Entitic vol]86.2 eKXmnady21.6-102.9 [facility] HospitalCombeaumont hospital on above:Performed By: #### CBC, HEPXA, CMPX, MG, TSHX, TROPI #### [facility] [address] [place] [address] Art Museum Aide: eDxter Fried MD #### LIPR #### [address] [address] Art Museum Aide: Paco Tatum MDMonocytes (Bld) [#/Vol]0.61 10*3/uLNormal 0.10-1.20[facility] HospitalCombeaumont hospital on above:Performed By: #### CBC, HEPXA, CMPX, MG, TSHX, TROPI #### [facility] [address] [place] [address] Art Museum Aide: Dexter Fried MD #### LIPR #### [address] [address] Art Museum Aide: Paco Tatum MDMonocytes/100 WBC (Bld)6 %Normal3-12[facility] HospitalCombeaumont hospital on above:Performed By: #### CBC, HEPXA, CMPX, MG, TSHX, TROPI #### [facility] [address] [place] [address] Art Museum Aide: Dexter Fried MD #### LIPR #### [address] [address] Art Museum Aide: Paco Tatum MDNeutrophil (Seg)61 %Zmaahr82-03NfvaaSuburban Community Hospital & Brentwood HospitalCombeaumont hospital on above:Performed By: #### CBC, HEPXA, CMPX, MG, TSHX, TROPI #### [facility] [address] [place] [address] Art Museum Aide: Dexter Fried MD #### LIPR #### [address] [address] Art Museum Aide: Paco Tatum MDNRBC Automated0.0 per 100 WBCNormal0.0[facility] HospitalCombeaumont hospital on above:Performed By: #### CBC, HEPXA, CMPX, MG, TSHX, TROPI #### [facility] [address] [place] [address] Art Museum Aide: Dexter Fried MD #### LIPR #### [address] [address] Art Museum Aide: RAHUL Porterlatejavier mean volume (Bld) [Entitic vol]9.1 fL Normal8.1-13.5[facility] HospitalCombeaumont hospital on above:Performed By: #### CBC, HEPXA, CMPX, MG, TSHX, TROPI #### [facility] [address] [place] [address] Art Museum Aide: Dexter Fried MD #### LIPR #### [address] [address] Art Museum Aide: Dinorah Portertelets (Bld) [#/Vol]351 10*3/fJWeqgzo449-514 [facility] on above:Performed By: #### CBC, HEPXA, CMPX, MG, TSHX, TROPI #### [facility] [address] [place] [address] Art Museum Aide: Dexter Fried MD #### LIPR #### [address] [address] Art Museum Aide: PATRICIA Porter (Bld) [#/Vol]4.06 10*6/uLNormal3.95-5.11 [facility] on above:Performed By: #### CBC, HEPXA, CMPX, MG, TSHX, TROPI #### [facility] [address] [place] [address] Art Museum Aide: Dexter Fried MD #### LIPR #### [address] [address] Art Museum Aide: PATRICIA Porter morphology finding Nom (Bld)ANISOCYTOSIS PRESENTNormalMercy Prosser Memorial Hospital on above:Performed By: #### CBC, HEPXA, CMPX, MG, TSHX, TROPI #### [facility] [address] [place] [address] Art Museum Aide: Dexter Fried MD #### LIPR #### [address] [address] Art Museum Aide: Paco Tatum MDWBC (Bld) [#/Vol]10.2 10*3/uLNormal3.5-11.3[facility] City HospitalComment on above:Performed By: #### CBC, HEPXA, CMPX, MG, TSHX, TROPI #### [facility] [address] [place] [address] Art Museum Aide: Dexter Fried MD #### LIPR #### [facility] [address] [place], [place] [phone] Art Museum Aide: Paco Tatum, MDCT CHEST PULMONARY EMBOLISM W CONTRASTon . Acute embolus, within a distal segmental and proximal subsegmental branches, right lower lobe pulmonary artery, without evidence of RV strain 2. Cardiomegaly 3. 13 mm thyroid nodule, within the medial portion of the right lobe extending into the isthmus. Recommendation as discussed below 4. Critical results were called by Dr. Ernie Gamino to [employer] Bandar Vaughan on 11/30/2021 at 10:54 p.m. hours. RECOMMENDATIONS: 1.3 cm incidental right thyroid nodule with heterogeneous and enlarged thyroid. Recommend thyroid US. Reference: J Am Sukhjinder Radiol. 2015 Oct;12(2): 143-50 [facility] RIS CONSOLIDATEDEXAMINATION: CTA OF THE CHEST 11/30/2021 6:40 pm [...] No acute bone or soft tissue abnormality. [facility] Ernie Cooney, DO - 11/30/2021 EXAMINATION: CTA OF THE CHEST [...] were called by Dr. Ernie Gamino to [employer] Bandar Phanel on 11/30/2021 at 10:54 p.m. hours. RECOMMENDATIONS: 1.3 cm incidental right thyroid nodule with heterogeneous and enlarged thyroid. Recommend thyroid US. Reference: J Am Sukhjinder Radiol. 2015 Oct;12(2): 143-50 [email or web address] Phone: [facility] Centerjslyhl Phone: radiology Study observation (narrative)[email or web address] Phone: comp Metabolic Pr/rfx MGon 11-30-2021(cont.)Normal [facility] Brent[facility] HospitalComment on above:Result Comment: Average GFR for 20-29 years old: 116 mL/min/1.73sq m Chronic Kidney Disease: <60 mL/min/1.73sq m Kidney failure: <15 mL/min/1.73sq m eGFR calculated using average adult body mass. Additional eGFR calculator available at: http://www.cVidya.[employer]/multiple_crcl_2012.htmPerformed By: #### CBC, HEPXA, CMPX, MG, TSHX, TROPI #### [facility] [address] [place] [address] Art Museum Aide: Dexter Fried MD #### LIPR #### [facility] [address] [place] [address] Art Museum Aide: Paco Tatum MDAlbumin [Mass/Vol]3.7 g/dLNormal3.5-5.2[facility] Valley HospitalComment on above:Performed By: #### CBC, HEPXA, CMPX, MG, TSHX, TROPI #### [facility] [address] [place] [address] Art Museum Aide: Dexter Fried MD #### LIPR #### [address] [address] Art Museum Aide: Dinah Porter Ojrc976 U/SZjrytp04-820TqwujSuburban Community Hospital & Brentwood HospitalComment on above:Performed By: #### CBC, HEPXA, CMPX, MG, TSHX, TROPI #### [facility] [address] [place] [address] Art Museum Aide: Dexter Fried MD #### LIPR #### [address] [address] Art Museum Aide: MELITA Porter [Catalytic activity/Vol]31 U/LNormal5-33 [facility] Brent[facility] HospitalComment on above:Performed By: #### CBC, HEPXA, CMPX, MG, TSHX, TROPI #### [facility] [address] [place] [address] Art Museum Aide: Dexter Fried MD #### LIPR #### [address] [address] Art Museum Aide: Flynn Porter gap [Moles/Vol]10 mmol/LNormal9-17[facility] HospitalComment on above:Performed By: #### CBC, HEPXA, CMPX, MG, TSHX, TROPI #### [facility] [address] [place] [address] Art Museum Aide: Dexter Fried MD #### LIPR #### [address] [address] Art Museum Aide: Paco Tatum MDAST [Catalytic activity/Vol]15 U/LNormal<32[facility] Brent[facility] HospitalComment on above:Performed By: #### CBC, HEPXA, CMPX, MG, TSHX, TROPI #### [facility] [address] [place] [address] Art Museum Aide: Dexter Fried MD #### LIPR #### [address] [address] Art Museum Aide: Paco Tatum MDBilirubin [Mass/Vol]0.21 mg/dLLow0.3-1.2[facility]y [facility] HospitalComment on above:Performed By: #### CBC, HEPXA, CMPX, MG, TSHX, TROPI #### [facility] [address] [place] [address] Art Museum Aide: Dexter Fried MD #### LIPR #### [address] [address] Art Museum Aide: Paco Tatum MDBUN/CRE Wqcar71Fozs9-25OpkrdSuburban Community Hospital & Brentwood Hospital Comment on above:Performed By: #### CBC, HEPXA, CMPX, MG, TSHX, TROPI #### [facility] [address] [place] [address] Art Museum Aide: Dexter Fried MD #### LIPR #### [address] [address] Art Museum Aide: CELESTE Porteralcium [Mass/Vol]9.0 mg/dLNormal8.6-10.4[facility] Brent[facility] HospitalComment on above:Performed By: #### CBC, HEPXA, CMPX, MG, TSHX, TROPI #### [facility] [address] [place] [address] Art Museum Aide: Dexter Fried MD #### LIPR #### [address] [address] Art Museum Aide: CELESTE Porterhloride [Moles/Vol]101 mmol/RGvvudb50-473CppxhSuburban Community Hospital & Brentwood HospitalCombeaumont hospital on above:Performed By: #### CBC, HEPXA, CMPX, MG, TSHX, TROPI #### [facility] [address] [place] [address] Art Museum Aide: Dexter Fried MD #### LIPR #### [address] [address] Art Museum Aide: Paco Tatum MDCO2 [Moles/Vol]23 mmol/FIajamy79-93IpttlSuburban Community Hospital & Brentwood HospitalCombeaumont hospital on above:Performed By: #### CBC, HEPXA, CMPX, MG, TSHX, TROPI #### [facility] [address] [place] [address] Art Museum Aide: Dexter Fried MD #### LIPR #### [address] [address] Art Museum Aide: CELESTE Porterreatinine [Mass/Vol]0.55 mg/dLNormal0.50-0.90 [facility] HospitalCombeaumont hospital on above:Performed By: #### CBC, HEPXA, CMPX, MG, TSHX, TROPI #### [facility] [address] [place] [address] Art Museum Aide: Dexter Fried MD #### LIPR #### [address] [address] Art Museum Aide: Paco Tatum MDGFR, Amer>60Normal>60[facility] Brent[facility] HospitalComment on above:Performed By: #### CBC, HEPXA, CMPX, MG, TSHX, TROPI #### [facility] [address] [place] [address] Art Museum Aide: Dexter Fried MD #### LIPR #### [address] [address] Art Museum Aide: Paco Tatum MDGFR,non Amer>60Normal>60[facility] HospitalCombeaumont hospital on above:Performed By: #### CBC, HEPXA, CMPX, MG, TSHX, TROPI #### [facility] [address] [place] [address] Art Museum Aide: Dexter Fried MD #### LIPR #### [address] [address] Art Museum Aide: Paco Tatum MDGlucose [Mass/Vol]101 mg/pRHvaw02-37BdnpnForks Community HospitalCombeaumont hospital on above:Performed By: #### CBC, HEPXA, CMPX, MG, TSHX, TROPI #### [facility] [address] [place] [address] Art Museum Aide: Dexter Fried MD #### LIPR #### [address] [address] Art Museum Aide: RAHUL Porterotassium [Moles/Vol]4.0 mmol/LNormal3.7-5.3 [facility] on above:Performed By: #### CBC, HEPXA, CMPX, MG, TSHX, TROPI #### [facility] [address] [place] [address] Art Museum Aide: Dexter Fried MD #### LIPR #### [address] [address] Art Museum Aide: Paco Tatum MDProtein [Mass/Vol]6.9 g/dLNormal6.4-8.3MForks Community HospitalCombeaumont hospital on above:Performed By: #### CBC, HEPXA, CMPX, MG, TSHX, TROPI #### [facility] [address] [place] [address] Art Museum Aide: Dexter Fried MD #### LIPR #### [address] [address] Art Museum Aide: Paco Tatum MDSodium [Moles/Vol]134 mmol/ZXys542-594TshxtSuburban Community Hospital & Brentwood HospitalComment on above:Performed By: #### CBC, HEPXA, CMPX, MG, TSHX, TROPI #### [facility] [address] [place] [address] Art Museum Aide: Dexter Fried MD #### LIPR #### [address] [address] Art Museum Aide: Paco Tatum MDUrea nitrogen [Mass/Vol]16 mg/dLNormal6-20[facility] HospitalComment on above:Performed By: #### CBC, HEPXA, CMPX, MG, TSHX, TROPI #### [facility] [address] [place] [address] Art Museum Aide: Dexter Fried MD #### LIPR #### [address] [address] Art Museum Aide: CELESTE Porteromprehensive Metabolic Panel w/ Reflex to MGon [id number] [Mass/Vol]3.7 g/dL3.5 - 5.2 g/dLFisher-Titus Medical Center HealthALP (Bld) [Catalytic activity/Vol]102 U/L35 - 104 U/LMercy HealthALT [Catalytic activity/Vol]31 U/L5 - 33 U/LMercy HealthAnion gap [Moles/Vol]10 mmol/L9 - 17 mmol/LMercy HealthAST [Catalytic activity/Vol]15 U/L<32Mer HealthBilirubin [Mass/Vol]0.21 mg/dLLow0.3 - 1.2 mg/dLMercy HealthCalcium [Mass/Vol]9.0 mg/dL8.6 - 10.4 mg/dLMercy HealthChloride [Moles/Vol]101 mmol/L98 - 107 mmol/LMercy HealthCO2 [Moles/Vol]23 mmol/L20 - 31 mmol/LMercy HealthCreatinine [Mass/Vol] 0.55 mg/dL0.50 - 0.90 mg/dLOhiohealth Hardin Memorial HospitalFree PSA/Total PSA [Mass fraction]6.9 g/dL6.4 - 8.3 g/dLFisher-Titus Medical Center HealthGFR >60>60 mL/minFisher-Titus Medical Center HealthGFR Non->60>60 mL/minFisher-Titus Medical Center HealthGFR/1.73 sq M.predicted MDRD (S/P/Bld) [Vol rate/Area][facility] HospitalComment on above:Average GFR for 20-29 years old: 116 mL/min/1.73sq m Chronic Kidney Disease: <60 mL/min/1.73sq m Kidney failure: <15 mL/min/1.73sq m eGFR calculated using average adult body mass. Additional eGFR calculator available at: http://www.I[employer]uu/multiple_crcl_2011.htm Glucose [Mass/Vol]101 mg/pFOtva48 - 99 mg/dLFisher-Titus Medical Center HealthPotassium [Moles/Vol]4.0 mmol/L3.7 - 5.3 mmol/LMercy HealthSodium [Moles/Vol]134 mmol/GRpi323 - 144 mmol/LMercy HealthUrea nitrogen (BldV) [Mass/Vol]16 mg/dL6 - 20 mg/dLFisher-Titus Medical Center HealthUrea nitrogen/Creatinine (Bld) [Mass ratio]29HighFisher-Titus Medical Center HealthD-Dimer Test on 40-73-4325F-Dimer Test1.73 mg/L FEUHigh0.00-0.59[facility] Comment on above:Result Comment: When combined with a low clinical [...] be more prevalent in patients with distal DVT.Performed By: #### CBC, HEPXA, CMPX, MG, TSHX, TROPI #### [facility] [address] [place], [place] [phone] Art Museum Aide: Dexter Fried MD #### LIPR #### [facility] [address] [place], [place] [phone] Art Museum Aide: PRASAD Porter-Dimer, Quantitativeon [id number]-Dimer, Quant 1.73[facility] Ridge Medical Centerment on above: When combined with a low [...] distal DVT. Interpretation and review of laboratory resultsAbnormalMayo Clinic Health System– [facility] Lactate Dehydrogenaseon [id number] [Catalytic activity/Vol]171 U/LNormal 135-214[facility] Brent[facility] HospitalComment on above:Performed By: #### CBC, HEPXA, CMPX, MG, TSHX, TROPI #### [facility] [address] [place] [address] Art Museum Aide: Dexter Fried MD #### LIPR #### [facility]Rank [address] [place] [phone] Art Museum Aide: Paco Tatum MDLD171 U/L135 - 214 U/LMercy HealthMagnesiumon [id number] [Mass/Vol]1.9 mg/dLNormal1.6-2.6M[facility] hospitaly [facility] Comment on above:Performed By: #### CBC, HEPXA, CMPX, MG, TSHX, TROPI #### [facility] [address] [place] [address] Art Museum Aide: Dexter Fried MD #### LIPR #### [address] [address] Art Museum Aide: Jani Portergnesium [Mass/Vol]1.9 mg/dL1.6 - 2.6 mg/dL [facility] HospitalMicroscopic Urinalysison 11-30-2021-[facility] HospitalBacteria, UARARE AbnormalNoneMerc HealthEpithelial Cells UA0 TO 2[facility]cy HealthInterpretation and review of laboratory resultsAbnoKettering HealthRBC, UA2 TO 5[facility] HospitalWBC, UA 2 TO 5[facility] ValleyNo Panel Informationon [id number] and review of laboratory resultsAbOsceola [facility]add [facility] Prot. Electrophoresis, Uron [id number] of Specimen.CLEAN CATCH URINENormal [facility] HospitalComment on above:Performed By: #### CBC, HEPXA, CMPX, MG, TSHX, TROPI #### [facility] [address] [place], [place] [phone] Art Museum Aide: Dexter Fried MD #### LIPR #### [place] [address] [place], [place] [address] Art Museum Aide: Paco Tatum [facility]-INRon [id number] Coag (Bld) [Relative time]1.1 {INR}[facility] on above: Non-therapeutic Range: INR = 0.9-1.2 Therapeutic Range: Moderate Anticoagulant Intensity: INR = 2.0-3.0 High Anticoagulant Intensity: INR = 2.5-3.5 PT Coag (PPP) [Time]14 sMcleveland clinic mercy hospitaly [facility] HealthTroponinon [id number], High Sens<8Gkpnhh4-65SquybSuburban Community Hospital & Brentwood HospitalCombeaumont hospital on above:Result Comment: High Sensitivity Troponin values cannot be compared with other Troponin methodologies. Patients with high levels of Biotin oral intake (i.e >5mg/day) may have falsely decreased Troponin levels. Samples collected within 8 hours of biotin intake may require additional information for diagnosis.Performed By: #### CBC, HEPXA, CMPX, MG, TSHX, TROPI #### [facility] [address] [place], [place] [phone] Art Museum Aide: Dexter Fried MD #### LIPR #### [place] [address] [place] [address] Art Museum Aide: Yuri Porter, High Sensitivity<60 - 14 ng/LMercy HealthComment on above: High Sensitivity Troponin values cannot be compared with other Troponin methodologies. Patients with high levels of Biotin oral intake (i.e >5mg/day) may have falsely decreased Troponin levels. Samples collected within 8 hours of biotin intake may require additional information for diagnosis. [facility] Memorial HospitalTroponin, High Sensitivity<60 - 14 ng/LMercy HealthComment on above: High Sensitivity Troponin values cannot be compared with other Troponin methodologies. Patients with high levels of Biotin oral intake (i.e >5mg/day) may have falsely decreased Troponin levels. Samples collected within 8 hours of biotin intake may require additional information for diagnosis. UA w/Reflex Cultureon [id number], SemiQt,UrNegativeNormalNEGMerLegacy HealthComment on above:Performed By: #### CBC, HEPXA, CMPX, MG, TSHX, TROPI #### [facility] [address] [place], [place] [phone] Art Museum Aide: Dexter Fried MD #### LIPR #### [address] [phone] Art Museum Aide: Gerber Porter, Urine3+AbnormalNEGSuburban Community Hospital & [facility] Comment on above:Performed By: #### CBC, HEPXA, CMPX, MG, TSHX, TROPI #### [facility] [address] [place], [place] [phone] Art Museum Aide: Dexter Fried MD #### LIPR #### [address] [phone] Art Museum Aide: Nenita Porter (U)SLIGHTLY CLOUDYAbnormalCLEARMForks Community HospitalComment on above:Performed By: #### CBC, HEPXA, CMPX, MG, TSHX, TROPI #### [facility] [address] [place] [address] Art Museum Aide: Dexter Fried MD #### LIPR #### [address] [address] Art Museum Aide: CELESTE Porterolor (U)YellowNormalYELMerLegacy Health Comment on above:Performed By: #### CBC, HEPXA, CMPX, MG, TSHX, TROPI #### [facility] [address] [place] [address] Art Museum Aide: Dexter Fried MD #### LIPR #### [address] [address] Art Museum Aide: Paco Tatum MDGlucose Ql (U)NegativeNormalNEGMerLegacy HealthComment on above:Performed By: #### CBC, HEPXA, CMPX, MG, TSHX, TROPI #### [facility] [address] [place] [address] Art Museum Aide: Dexter Fried MD #### LIPR #### [address] [address] Art Museum Aide: Paco Tatum MDKetones Ql (U)NegativeNormalNEGMercy Multicare Valley HospitalComment on above:Performed By: #### CBC, HEPXA, CMPX, MG, TSHX, TROPI #### [facility] [address] [place] [address] Art Museum Aide: Dexter Fried MD #### LIPR #### [address] [address] Art Museum Aide: Paco Tatum MDLeukocyte esterase Test strip Ql (U)SMALL AbnormalNEGMercy Multicare Valley HospitalComment on above:Performed By: #### CBC, HEPXA, CMPX, MG, TSHX, TROPI #### [facility] [address] [place] [address] Art Museum Aide: Dexter Fried MD #### LIPR #### [address] [address] Art Museum Aide: Paco Tatum MDNitrite,UrNegativeNormalNEGGenesis Hospitalment on above:Performed By: #### CBC, HEPXA, CMPX, MG, TSHX, TROPI #### [facility] [address] [place] [address] Art Museum Aide: Dexter Fried MD #### LIPR #### [address] [address] Art Museum Aide: RAHUL Porter,Ur6.3Wmfite9.0-8.0[facility] Comment on above:Performed By: #### CBC, HEPXA, CMPX, MG, TSHX, TROPI #### [facility] [address] [place] [address] Art Museum Aide: Dexter Fried MD #### LIPR #### [address] [address] Art Museum Aide: RAHUL Porterrotein Ql (U)NegativeNormalNEGMercy Health Anderson Hospital on above:Performed By: #### CBC, HEPXA, CMPX, MG, TSHX, TROPI #### [facility] [address] [place] [address] Art Museum Aide: Dexter Fried MD #### LIPR #### [address] [address] Art Museum Aide: KELLY Porterpec. [place],Ur1.687Ulfp6.005-1.030[facility] on above:Performed By: #### CBC, HEPXA, CMPX, MG, TSHX, TROPI #### [facility] [address] [place] [address] Art Museum Aide: Dexter Fried MD #### LIPR #### [address] [phone] Art Museum Aide: Paco Tatum MDUrobilinogen,UrNormalNormalNORMMercy Health Anderson Hospital on above:Performed By: #### CBC, HEPXA, CMPX, MG, TSHX, TROPI #### [facility] [address] [place] [address] [phone] Art Museum Aide: Dexter Fried MD #### LIPR #### [address] [address] Art Museum Aide: Arlene Porter Acidon [id number] [Mass/Vol]8.0 mg/dL High2.4-5.7[facility] on above:Performed By: #### CBC, HEPXA, CMPX, MG, TSHX, TROPI #### [facility] [address] [place] [address] Art Museum Aide: Dexter Fried MD #### LIPR #### [address] [address] Art Museum Aide: Paco Tatum MDUrate [Mass/Vol]8.0 mg/dLHigh2.4 - 5.7 mg/dL [facility] HealthUrinalysis with Reflex to Cultureon [id number] Urine NegativeNEGATIVEMercy HealthColor, UAYellowYellowMercy HealthGlucose, UrNegative NEGATIVEMercy HealthInterpretation and review of laboratory resultsAbnormalMercy HealthKetones Ql (U)NegativeNEGATIVEMercy HealthLeukocyte esterase Test strip Ql (U)SMALLAbnormalNEGATIVEMercy HealthNitrite, UrineNegativeNEGATIVEMercy HealthpH, UA6.0Mercy HealthProtein, UANegativeNEGATIVEMercy HealthSpecific [place], UA1.035HighMercy HealthTurbidity UASLIGHTLY CLOUDYAbnormalClearMercy HealthUrine Hgb3+AbnormalNEGATIVEMercy HealthUrobilinogen, UrineNormalNormal [facility] HealthUrinalysis,Microon 11-30-2021-----NormalMercy Multicare Valley HospitalComment on above:Performed By: #### CBC, HEPXA, CMPX, MG, TSHX, TROPI #### [facility] [address] [place] [address] Art Museum Aide: Dexter Fried MD #### LIPR #### [address] [phone] Art Museum Aide: Paco Tatum MDBacteriaRAREAbnormAshtabula General Hospital Comment on above:Performed By: #### CBC, HEPXA, CMPX, MG, TSHX, TROPI #### [facility] [address] [place] [address] [phone] Art Museum Aide: Dexter Fried MD #### LIPR #### [address] [phone] Art Museum Aide: Paco Tatum MDEpithelial cells LM Ql (Urine sed)0 TO 2Normal 0-5MerLegacy HealthComment on above:Performed By: #### CBC, HEPXA, CMPX, MG, TSHX, TROPI #### [facility] [address] [place] [address] [phone] Art Museum Aide: Dexter Fried MD #### LIPR #### [address] [phone] Art Museum Aide: Paco Tatum MDUrine RBC's2 TO 5Nappun0-9DgyvaForks Community HospitalComment on above:Performed By: #### CBC, HEPXA, CMPX, MG, TSHX, TROPI #### [facility] [address] [place] [address] Art Museum Aide: Dexter Fried MD #### LIPR #### [facility] [address] [place] [address] Art Museum Aide: Mary Porter WBC's2 TO 8Nxghvg8-1RhrzcSuburban Community Hospital & Brentwood HospitalComment on above:Performed By: #### CBC, HEPXA, CMPX, MG, TSHX, TROPI #### [facility] [address] [place] [address] Art Museum Aide: Dexter Fried MD #### LIPR #### [address] [address] Art Museum Aide: ALFIE Porter CHEST PORTABLEon [id number] CHEST PORTABLE EXAMINATION: ONE XRAY VIEW OF [...] Signed by: Ernie Gamino DO 11/30/21 Final resultNormalSuburban Community Hospital & [facility]wood Hospital1. Cardiomegaly, without evidence of CHF MHPN RIS CONSOLIDATEDEXAMINATION: ONE XRAY VIEW OF THE CHEST 11/30/2021 5:46 pm COMPARISON: CT PA dated November 26, 2021 HISTORY: ORDERING SYSTEM PROVIDED HISTORY: sob TECHNOLOGIST PROVIDED HISTORY: sob Reason for Exam: SOB FINDINGS: Adequate inspiration is present. No focal area of consolidation or pneumothorax is noted. Heart size is prominent. Vascular markings are distinct. No acute osseous abnormality is present. MHPN Ernie Cooney, DO - 11/30/2021 EXAMINATION: ONE XRAY VIEW [...] IMPRESSION: 1. Cardiomegaly, without evidence of CHF [employer] Work Phone: radiology Study observation (narrative)[email or web address] Phone: xr CHEST PORTABLEOrdered By: Ernie Gamino on [id number] Work Phone: cbc with Auto Differentialon [id number] Eos # 0.23[facility] Medical CenterPulmonxAbsolute Immature Granulocyte0.13[facility] Medical CenterPulmonxAbsolute Lymph # 1.98[facility] Medical CenterPulmonxAbsolute Towns #0.51[facility] Medical CenterPulmonxBasophils (Bld) [#/Vol]0.06 10*3/uLTrinity Health System Twin City Medical CenterPulmonxBasophils/100 WBC (Bld)1 %0 - 2 %[facility]beighVivoEosinophils/100 WBC (Bld)3 %1 - 4 %[facility] GlenbeighVivoHematocrit (Bld) [Volume fraction]28.9 %Low36.3 - 47.1 %[facility] JumpStartHemoglobin.gastrointestinal spec 1 Ql (Stl)8.9 g/dLLow11.9 - 15.1 g/dLTrinity Health System Twin City Medical CenterPulmonxImmature granulocytes/100 WBC (Bld)2 %Eyux9Gjxal JumpStart Interpretation and review of laboratory resultsAbnormalOhiohealth Hardin Memorial Hospital Lymphocytes/100 WBC (Bld)23 %Low24 - 43 %[facility] HospitalH (RBC) [Entitic mass] 26.5 pg25.2 - 33.5 pgMercy Health Kings Mills HospitalHC (RBC) [Mass/Vol]30.8 g/dL28.4 - 34.8 g/dL [facility] HospitalV (RBC) [Entitic vol]86.0 fL82.6 - 102.9 fLOhiohealth Hardin Memorial Hospital Monocytes/100 WBC (Bld)6 %3 - 12 %[facility] HospitalNRBC Automated0.00.0 per 100 WBC [facility] HospitalPlatelet distribution width (Bld) [Ratio]14.8 %High11.8 - 14.4 % [facility] Memorial HospitalPlatelet mean volume (Bld) [Entitic vol]10.3 fL8.1 - 13.5 fLOhiohealth Hardin Memorial HospitalPlatelets (Bld) [#/Vol]236 10*3/[facility] CampusRBC (Bld) [#/Vol]3.36 10*6/uLLow3.95 - 5.11 m/[facility] CampusRBC (Bld) [#/Vol]ANISOCYTOSIS PRESENTOhiohealth Hardin Memorial HospitalSegmented neutrophils/100 WBC (Bld)65 %36 - 65 %[facility] Memorial HospitalSegs Absolute 5.77Ohio[facility] Memorial HospitalWBC (Bld) [#/Vol]8.7 10*3/[facility] HospitalCBC with Diffon [id number]. Basophil0.06 k/uLNormal0.00-0.20Mer[facility] County Community HospitalComment on above:Performed By: #### DENG MERRILL, URI #### [facility] [address] [place] [address] Art Museum Aide: Khadra Porter.Imm.Granulocyte0.13 k/uLNormal0.00-0.30[facility] HospitalComment on above:Performed By: #### DENG MERRILL, URI #### [facility] [address] [place] [address] Art Museum Aide: Khadra Porter.Neutrophil (Seg)5.77 k/uLNormal1.50-8.10 [facility] HospitalComment on above:Performed By: #### DENG MERRILL, URI #### [facility] [address] [place], [place] [phone] Art Museum Aide: Paco Tatum MDBasophils/100 WBC (Bld)1 %Normal0-2MSherman Oaks Hospital and the Grossman Burn CenterComment on above:Performed By: #### CDP, CP, URI #### [address] [address] Art Museum Aide: Paco Tatum MDEosinophils (Bld) [#/Vol]0.23 10*3/uLNormal 0.00-0.44[facility] Community HospitalComment on above:Performed By: #### GARFIELD, CP, URI #### [address] [address] Art Museum Aide: Paco Tatum MDEosinophils/100 WBC (Bld)3 %Normal1-4Mer[facility] Community HospitalComment on above:Performed By: #### GARFIELD, CP, URI #### [place] [address] Art Museum Aide: Paco Tatum MDErythrocyte distribution width (RBC) [Ratio]14.8 %High11.8-14.4Mer[facility] Community HospitalComment on above:Performed By: #### DENG MERRILL, URI #### [address] [address] Art Museum Aide: Paco Tatum MDHematocrit (Bld) [Volume fraction]28.9 %Low 36.3-47.1MSherman Oaks Hospital and the Grossman Burn CenterComment on above:Performed By: #### GARFIELD, CP, URI #### [address] [address] Art Museum Aide: Paco Tatum MDHemoglobin (Bld) [Mass/Vol]8.9 g/dLLow11.9-15.1 [facility] HospitalComment on above:Performed By: #### CDP, CP, URI #### [facility] [address] [place] [address] Art Museum Aide: Paco Tatum MDImmature granulocytes/100 WBC (Bld)2 %Dxeo0FbbyyMercer County Community HospitalComment on above:Performed By: #### GARFIELD, CP, URI #### [facility] [address] [place] [address] Art Museum Aide: Kris Portermphocytes (Bld) [#/Vol]1.98 10*3/uLNormal 1.10-3.70[facility] Community HospitalComment on above:Performed By: #### GARFIELD, CP, URI #### [facility] [address] [place] [address] Art Museum Aide: Scarlett Porterhocytes/100 WBC (Bld)23 %Rlz17-41ChoffMercer County Community HospitalComment on above:Performed By: #### GARFIELD, CP, URI #### [address] [address] Art Museum Aide: OCTAVIA PorterCH (RBC) [Entitic mass]26.5 iiUjhtmx88.2-33.5 [facility] HospitalComment on above:Performed By: #### GARFIELD, DENG, URI #### [facility] [address] [place] [address] Art Museum Aide: OCTAVIA PorterCHC (RBC) [Mass/Vol]30.8 g/vMDvgvlt27.4-34.8 [facility] HospitalComment on above:Performed By: #### GARFIELD, CP, URI #### [facility] [address] [place] [address] Art Museum Aide: OCTAVIA PorterCV (RBC) [Entitic vol]86.0 gIJouupq85.6-102.9 [facility] HospitalComment on above:Performed By: #### GARFIELD, CP, URI #### [facility] [address] [place] [address] Art Museum Aide: Paco Madoff, MDMonocytes (Bld) [#/Vol]0.51 10*3/uLNormal 0.10-1.20[facility] HospitalComment on above:Performed By: #### GARFIELD, CP, URI #### [facility] [address] [place] [address] Art Museum Aide: Paco Tatum MDMonocytes/100 WBC (Bld)6 %Normal3-12[facility] HospitalComment on above:Performed By: #### CDP, CP, URI #### [facility] [address] [place] [address] Art Museum Aide: Vi Porterutrophil (Seg)65 %Kbqdex91-94RgfrqMercer County Community HospitalComment on above:Performed By: #### GARFIELD CP, URI #### [address] [address] Art Museum Aide: Paco Tatum MDNRBC Automated0.0 per 100 WBCNormal0.0Mer[facility] County Community HospitalComment on above:Performed By: #### GARFIELD CP, URI #### [facility] [address] [place] [address] Art Museum Aide: RAHUL Porterlatelet mean volume (Bld) [Entitic vol]10.3 fL Normal8.1-13.5[facility] Community HospitalComment on above:Performed By: #### GARFIELD, CP, URI #### [facility] [address] [place] [address] Art Museum Aide: Paco Tatum MDPlatelets (Bld) [#/Vol]236 10*3/lRCpkmli641-267 [facility] HospitalComment on above:Performed By: #### GARFIELD, CP, URI #### [facility] [address] [place] [address] Art Museum Aide: Paco Tatum MDRBC (Bld) [#/Vol]3.36 10*6/uLLow3.95-5.11[facility] Of NorwalkComment on above:Performed By: #### DENG MERRILL, URI #### [facility] [address] [place] [address] Art Museum Aide: PATRICIA Porter morphology finding Nom (Bld)ANISOCYTOSIS PRESENTNormalMerRancho Springs Medical CenterComment on above:Performed By: #### DENG MERRILL, URI #### [facility] [address] [place] [address] Art Museum Aide: BREEZY Porter (Bld) [#/Vol]8.7 10*3/uLNormal3.5-11.3[facility] Hospital Of NorwalkComment on above:Performed By: #### DENG MERRILL, URI #### [facility] [address] [place] [address] Art Museum Aide: CELESTE PorterOVID-19, Rapidon [id number]-CoV-2 (COVID- 19) RNA MYNOR+probe Ql (Unsp spec)Not detectedNot [facility]Health Mansfield HospitalComment on above: Rapid NAAT: The specimen is [...] management decisions. Fact sheet for Healthcare Providers: https://www.fda.gov/media/972747/download Fact sheet for Patients: https://www.fda.gov/media/053323/download Methodology: Isothermal Nucleic Acid Amplification Specimen Description.NASOPHARYNGEAL SWABMercy HealthMercy HealthCT CHEST PULMONARY EMBOLISM W CONTRASTon [id number] CHEST PULMONARY EMBOLISM W CONTRAST EXAMINATION: CTA [...] Signed by: Alok San MD 11/26/21 Final resultNoOhioHealth Dublin Methodist HospitalMotion degraded exam. No evidence for central pulmonary embolism. Probable subsegmental atelectasis in the lung bases. No consolidation. PN RIS CONSOLIDATEDEXAMINATION: CTA OF THE CHEST 11/26/2021 5:23 am [...] No acute bone or soft tissue abnormality. [facility] Alok Saleem MD - 11/26/2021 EXAMINATION: CTA OF THE [...] atelectasis in the lung bases. No consolidation. [email or web address] Phone: radiology Study observation (narrative)[email or web address] Phone: cT CHEST PULMONARY EMBOLISM W CONTRASTOrdered By: Alok San on [email or web address] Phone: Comp Metabolic Profon 11-26-2021(cont.)NormalMercer County Community HospitalComment on above:Result Comment: Average GFR for 20-29 years old: 116 mL/min/1.73sq m Chronic Kidney Disease: <60 mL/min/1.73sq m Kidney failure: <15 mL/min/1.73sq m eGFR calculated using average adult body mass. Additional eGFR calculator available at: http://www.Iizuu/multiple_crcl_2012.htmPerformed By: #### DENG MERRILL, URI #### [facility] [address] [place] [address] Art Museum Aide: Paco Tatum MDAlbumin [Mass/Vol]3.3 g/dLLow3.5-5.2MSherman Oaks Hospital and the Grossman Burn CenterComment on above:Performed By: #### DENG MERRILL, URI #### [facility] [address] [place] [address] Art Museum Aide: Paco Tatum MDAlbumin/Glob Ratio1.7Jweopz6.0-2.5[facility] Community HospitalComment on above:Performed By: #### DENG MERRILL, URI #### [facility] [address] [place] [address] Art Museum Aide: Clovis Porterkaline Lzsf882 U/SXebr44-649WniruMercer County Community HospitalComment on above:Performed By: #### DENG MERRILL, URI #### [facility] [address] [place] [address] Art Museum Aide: Paco Tatum MDALT [Catalytic activity/Vol]44 U/LHigh5-33[facility] Community HospitalComment on above:Performed By: #### DENG MERRILL, URI #### [facility] [address] [place] [address] Art Museum Aide: Paco Tatum MDAnion gap [Moles/Vol]14 mmol/LNormal9-17[facility] Community HospitalComment on above:Performed By: #### GARFIELD, CP, URI #### [facility] [address] [place] [address] Art Museum Aide: Paco Tatum MDAST [Catalytic activity/Vol]26 U/LNormal<32[facility] Community HospitalComment on above:Performed By: #### GARFIELD, CP, URI #### [facility] [address] [place] [address] Art Museum Aide: Paco Tatum MDBilirubin [Mass/Vol]0.19 mg/dLLow0.3-1.2MSherman Oaks Hospital and the Grossman Burn CenterComment on above:Performed By: #### GARFIELD CP, URI #### [facility] [address] [place] [address] Art Museum Aide: Paco Tatum MDCalcium [Mass/Vol]8.3 mg/dLLow8.6-10.4[facility] Community HospitalComment on above:Performed By: #### GARFIELD, CP, URI #### [facility] [address] [place] [address] Art Museum Aide: Paco Tatum MDChloride [Moles/Vol]102 mmol/TVvfjsp79-684PuxmiMercer County Community HospitalComment on above:Performed By: #### GARFIELD, CP, URI #### [facility] [address] [place] [address] Art Museum Aide: Paco Tatum MDCO2 [Moles/Vol]21 mmol/JFizslx48-44VmcyoMercer County Community HospitalComment on above:Performed By: #### CDP, CP, URI #### [facility] [address] [place] [address] Art Museum Aide: Paco Tatum MDCreatinine [Mass/Vol]0.32 mg/dLLow0.50-0.90Mer[facility] County Community HospitalComment on above:Performed By: #### CDP, CP, URI #### [facility] [address] [place] [address] Art Museum Aide: Paco Tatum MDGFR, Amer>60Normal>60[facility] Community HospitalComment on above:Performed By: #### GARFIELD CP, URI #### [facility] [address] [place] [address] Art Museum Aide: Paco Tatum MDGFR,non Amer>60Normal>60[facility] Community HospitalComment on above:Performed By: #### GARFIELD CP, URI #### [facility] [address] [place] [address] Art Museum Aide: Paco Tatum MDGlucose [Mass/Vol]98 mg/pDTyrgkd89-10WyjfmSherman Oaks Hospital and the Grossman Burn CenterComment on above:Performed By: #### DENG MERRILL, URI #### [address] [address] Art Museum Aide: RAHUL Porterotassium [Moles/Vol]3.7 mmol/LNormal3.7-5.3 [facility] HospitalComment on above:Performed By: #### DENG MERRILL, URI #### [facility] [address] [place] [address] Art Museum Aide: Paco Tatum MDProtein [Mass/Vol]6.2 g/dLLow6.4-8.3MSherman Oaks Hospital and the Grossman Burn CenterComment on above:Performed By: #### GARFIELD CP, URI #### [facility] [address] [place] [address] Art Museum Aide: Paco Tatum MDSodium [Moles/Vol]137 mmol/WXxqkru428-278MsbpeMercer County Community HospitalComment on above:Performed By: #### GARFIELD CP, URI #### [facility] [address] [place] [address] Art Museum Aide: Paco Tatum MDUrea nitrogen [Mass/Vol]7 mg/dLNormal6-20[facility] HospitalComment on above:Performed By: #### GARFIELD, CP, URI #### [facility] [address] [phone] Art Museum Aide: Paco Tatum [facility] HEALDTONomprehensive Metabolic Panelon 11-26-2021 Albumin [Mass/Vol]3.3 g/dLLow3.5 - 5.2 g/dLFisher-Titus [facility] Center HealthAlbumin/Globulin [Mass ratio]1.1 {ratio}[facility] HospitalALP (Bld) [Catalytic activity/Vol]105 U/LHigh35 - 104 U/LMercy HealthALT [Catalytic activity/Vol]44 U/LHigh5 - 33 U/LMercy Health Anion gap [Moles/Vol]14 mmol/L9 - 17 mmol/LMercy HealthAST [Catalytic activity/Vol]26 U/L<32Mer HealthBilirubin [Mass/Vol]0.19 mg/dLLow0.3 - 1.2 mg/dLFisher-T[facility] Center HealthCalcium [Mass/Vol]8.3 mg/dLLow8.6 - 10.4 mg/dLOhiohealth Hardin Memorial Hospital Chloride [Moles/Vol]102 mmol/L98 - 107 mmol/LMercy HealthCO2 [Moles/Vol]21 mmol/L20 - 31 mmol/LMercy HealthCreatinine [Mass/Vol]0.32 mg/dLLow0.50 - 0.90 mg/dLOhiohealth Hardin Memorial HospitalFree PSA/Total PSA [Mass fraction]6.2 g/dLLow6.4 - 8.3 g/dL [facility] HospitalGFR >60>60 mL/minFisher-Titus Medical Center HealthGFR Non->60>60 mL/minFisher-Titus Medical Center HealthGFR/1.73 sq M.predicted MDRD (S/P/Bld) [Vol rate/Area][facility] HospitalComment on above:Average GFR for 20-29 years old: 116 mL/min/1.73sq m Chronic Kidney Disease: <60 mL/min/1.73sq m Kidney failure: <15 mL/min/1.73sq m eGFR calculated using average adult body mass. Additional eGFR calculator available at: http://www.globalrp.com/multiple_crcl_2011.htm Glucose [Mass/Vol]98 mg/dL70 - 99 mg/dLFisher-Titus Medical Center HealthPotassium [Moles/Vol]3.7 mmol/L3.7 - 5.3 mmol/LMercy HealthSodium [Moles/Vol]137 mmol/L135 - 144 mmol/L [facility] HospitalUrea nitrogen (BldV) [Mass/Vol]7 mg/dL6 - 20 mg/dLOhiohealth Hardin Memorial HospitalNo Panel Informationon [id number] and review of laboratory results AbnormalTriHealth Bethesda Butler Hospital HealthProtein / Creatinine Ratio, Urineon 11-26-2021 Creatinine, Ur31.3 mg/dL28.0 - 217.0 mg/dLOhiohealth Hardin Memorial HospitalInterpretation and review of laboratory resultsAbnormalFisher-[facility] HealthProtein (U) [Mass/Vol]11 mg/dLOhiohealth Hardin Memorial HospitalComment on above:No normal range established.Urine Total Protein Creatinine Ratio0.35HighTriHealth Bethesda Butler Hospital HealthProtein,Tot,[place] Uron 11-26-2021 Creatinine [Mass/Vol]31.3 mg/kHYtbgbt41.0-217.0[facility] Brentwood HospitalComment on above:Performed By: #### CBC, HEPXA, CMPX, MG, TSHX, TROPI #### [facility] [address] [place] [address] Art Museum Aide: Dexter Fried MD #### LIPR #### [address] [address] Art Museum Aide: Paco Tatum MDTot Prot. Conc.11 mg/dLNormalSuburban Community Hospital & [facility] on above:Result Comment: No normal range established.Performed By: #### CBC, HEPXA, CMPX, MG, TSHX, TROPI #### [facility] [address] [place] [address] Art Museum Aide: Dexter Fried MD #### LIPR #### [address] [phone] Art Museum Aide: Paco Tatum MDTP/Cre Ratio0.39Nrml1.00-0.20[facility] HospitalComment on above:Performed By: #### CBC, HEPXA, CMPX, MG, TSHX, TROPI #### [facility] [address] [place], [place] [phone] Art Museum Aide: Dexter Fried MD #### LIPR #### [facility] [address] [place], [place] [phone] Art Museum Aide: RADHA Porter-CoV-2on [id number]-CoV-2 (COVID-19) RNA MYNOR+probe Ql (Unsp spec)Not detectedNormalNOTDESelect Medical Specialty Hospital - ColumbusComment on above:Result Comment: Rapid NAAT: The specimen is NEGATIVE [...] management decisions. Fact sheet for Healthcare Providers: https://www.fda.gov/media/302273/download Fact sheet for Patients: https://www.fda.gov/media/701888/download Methodology: Isothermal Nucleic Acid AmplificationPerformed By: #### COVRB #### [facility] [address] [place], [place] [phone] Art Museum Aide: Dexter Fried MDUric Acidon [id number] [Mass/Vol]6.4 mg/dL High2.4-5.7Mer[facility] County Community HospitalComment on above:Performed By: #### CDP, CP, URI #### [facility] [address] [place] [address] Art Museum Aide: Paco Tatum MDUrate [Mass/Vol]6.4 mg/dLHigh2.4 - 5.7 mg/dL [facility] Metabolic Panelon [id number] gap [Moles/Vol]11 mmol/L9 - 17 mmol/LMercy HealthCalcium [Mass/Vol]8.5 mg/dLLow8.6 - 10.4 mg/dLFisher-[facility] Health Chloride [Moles/Vol]104 mmol/L98 - 107 mmol/LMercy HealthCO2 [Moles/Vol]22 mmol/L20 - 31 mmol/LMercy HealthCreatinine [Mass/Vol]0.43 mg/dLLow0.50 - 0.90 mg/dLFisher-Titus Medical Center HealthGFR >60>60 mL/minFisher-Titus Medical Center HealthGFR Non->60>60 mL/minTrinity Health System Twin City Medical Centercy HealthGFR/1.73 sq M.predicted MDRD (S/P/Bld) [Vol rate/Area]Ohio[facility] Hardin Memorial HospitalComment on above:Average GFR for 20-29 years old: 116 mL/min/1.73sq m Chronic Kidney Disease: <60 mL/min/1.73sq m Kidney failure: <15 mL/min/1.73sq m eGFR calculated using average adult body mass. Additional eGFR calculator available at: http://www.cVidya.[employer]/multiple_crcl_2011.htm Glucose [Mass/Vol]101 mg/xOGyds71 - 99 mg/dLFisher-Titus Medical Center HealthPotassium [Moles/Vol]4.2 mmol/L3.7 - 5.3 mmol/LMercy HealthSodium [Moles/Vol]137 mmol/L135 - 144 mmol/L [facility] HealthUrea nitrogen (BldV) [Mass/Vol]9 mg/dL6 - 20 mg/dLFisher-Titus Medical Center HealthUrea nitrogen/Creatinine (Bld) [Mass ratio]21HighOhiohealth Hardin Memorial HospitalBasic Metabolic Profon 95-24-9111Asgbf gap [Moles/Vol]11 mmol/LNormal9-17[facility] HospitalComment on above:Performed By: #### CBC, HEPXA, CMPX, MG, TSHX, TROPI #### [facility] [address] [place] [address] Art Museum Aide: Dexter Fried MD #### LIPR #### [address] [address] Art Museum Aide: Paco Tatum MDBUN/CRE Sqszp21Chbm6-07SsgjmSuburban Community Hospital & [facility] Comment on above:Performed By: #### CBC, HEPXA, CMPX, MG, TSHX, TROPI #### [facility] [address] [place] [address] Art Museum Aide: Dexter Fried MD #### LIPR #### [address] [address] Art Museum Aide: CELESTE Porteralcium [Mass/Vol]8.5 mg/dLLow8.6-10.4[facility]wood HospitalComment on above:Performed By: #### CBC, HEPXA, CMPX, MG, TSHX, TROPI #### [facility] [address] [place] [address] Art Museum Aide: Dexter Fried MD #### LIPR #### [address] [address] Art Museum Aide: Paco Tatum MDChloride [Moles/Vol]104 mmol/OFtagah70-168RkpclSuburban Community Hospital & Brentwood HospitalComment on above:Performed By: #### CBC, HEPXA, CMPX, MG, TSHX, TROPI #### [facility] [address] [place] [address] Art Museum Aide: Dexter Fried MD #### LIPR #### [address] [address] Art Museum Aide: Paco Tatum MDCO2 [Moles/Vol]22 mmol/LTnehja66-55SqsaiLegacy HealthCombeaumont hospital on above:Performed By: #### CBC, HEPXA, CMPX, MG, TSHX, TROPI #### [facility] [address] [place] [address] Art Museum Aide: Dexter Fried MD #### LIPR #### [address] [address] Art Museum Aide: Paco Tatum MDCreatinine [Mass/Vol]0.43 mg/dLLow0.50-0.90[facility] HospitalCombeaumont hospital on above:Performed By: #### CBC, HEPXA, CMPX, MG, TSHX, TROPI #### [facility] [address] [place] [address] Art Museum Aide: Dexter Fried MD #### LIPR #### [address] [address] Art Museum Aide: Paco Tatum MDGFR, Amer>60Normal>60MerLegacy HealthCombeaumont hospital on above:Performed By: #### CBC, HEPXA, CMPX, MG, TSHX, TROPI #### [facility] [address] [place] [address] Art Museum Aide: Dexter Fried MD #### LIPR #### [address] [address] Art Museum Aide: Paco Tatum MDGFR,non Amer>60Normal>60MerLegacy HealthCombeaumont hospital on above:Performed By: #### CBC, HEPXA, CMPX, MG, TSHX, TROPI #### [facility] [address] [place] [address] Art Museum Aide: Dexter Fried MD #### LIPR #### [address] [address] Art Museum Aide: Paco Tatum MDGlucose [Mass/Vol]101 mg/bUDxfx69-65LxoagForks Community HospitalComment on above:Performed By: #### CBC, HEPXA, CMPX, MG, TSHX, TROPI #### [facility] [address] [place] [address] Art Museum Aide: Dexter Fried MD #### LIPR #### [address] [address] Art Museum Aide: RAHUL Porterotassium [Moles/Vol]4.2 mmol/LNormal3.7-5.3 [facility] HospitalCombeaumont hospital on above:Performed By: #### CBC, HEPXA, CMPX, MG, TSHX, TROPI #### [facility] [address] [place] [address] Art Museum Aide: Dexter Fried MD #### LIPR #### [address] [address] Art Museum Aide: Paco Tatum MDSodium [Moles/Vol]137 mmol/WKjnjai091-239MgxbbSuburban Community Hospital & [facility] HospitalCombeaumont hospital on above:Performed By: #### CBC, HEPXA, CMPX, MG, TSHX, TROPI #### [facility] [address] [place] [address] Art Museum Aide: Dexter Fried MD #### LIPR #### [address] [address] Art Museum Aide: Paco Tatum MDUrea nitrogen [Mass/Vol]9 mg/dLNormal6-20[facility] HospitalComment on above:Performed By: #### CBC, HEPXA, CMPX, MG, TSHX, TROPI #### [facility] [address] [place] [address] Art Museum Aide: Dexter Fried MD #### LIPR #### [address] [address] Art Museum Aide: Paco Tatum MD(cont.)[facility] CenterCombeaumont hospital on above:Result Comment: Average GFR for 20-29 years old: 116 mL/min/1.73sq m Chronic Kidney Disease: <60 mL/min/1.73sq m Kidney failure: <15 mL/min/1.73sq m eGFR calculated using average adult body mass. Additional eGFR calculator available at: http://www.[employer]/multiple_crcl_2012.htmPerformed By: #### CBC, HEPXA, CMPX, MG, TSHX, TROPI #### [facility] [address] [place] [address] Art Museum Aide: Dexter Fried MD #### LIPR #### [address] [address] Art Museum Aide: Paco Tatum MDBrain Natri. Peptideon 53-49-4736Rxkzmdurate peptide B (Bld) [Mass/Vol]163 pg/mLNormal<300[facility] HospitalCombeaumont hospital on above:Result Comment: An age-independent cutoff point of 300 pg/ml has a 98% negative predictive value excluding acute heart failure.Performed By: #### CBC, HEPXA, CMPX, MG, TSHX, TROPI #### [facility] [place] [address] Art Museum Aide: Dexter Fried MD #### LIPR #### [address] [address] Art Museum Aide: Paco Tatum MDBrain Natriuretic Peptideon 11-25-2021 Natriuretic peptide B (Bld) [Mass/Vol]163 pg/mL<300Ohiohealth Hardin Memorial HospitalComment on above: An age-independent cutoff point of 300 pg/ml has a 98% negative predictive value excluding acute heart failure. CBC with Auto Differentialon 77-90-8682Kxnaladw Eos #0.22MerProvidence St. Joseph's HospitalAbsolute Immature Granulocyte0.10Ohio[facility] Hardin Memorial HospitalAbsolute Lymph #2.14MerProvidence St. Joseph's HospitalAbsolute Towns #0.58Ohio[facility] Hardin Memorial HospitalBasophils (Bld) [#/Vol]0.05 10*3/uLOhiohealth Hardin Memorial Hospital Basophils/100 WBC (Bld)1 %0 - 2 %[facility] Memorial HospitalEosinophils/100 WBC (Bld)2 %1 - 4 % [facility] Memorial HospitalHematocrit (Bld) [Volume fraction]28.0 %Low36.3 - 47.1 %[facility] Hemoglobin.gastrointestinal spec 1 Ql (Stl)8.8 g/dLLow11.9 - 15.1 g/dLOhiohealth Hardin Memorial HospitalImmature granulocytes/100 WBC (Bld)1 %Hfnh2XronyOhiohealth Hardin Memorial HospitalInterpretation and review of laboratory resultsAbnormalOhiohealth Hardin Memorial HospitalLymphocytes/100 WBC (Bld)22 %Low 24 - 43 %[facility] Memorial HospitalMCH (RBC) [Entitic mass]26.9 pg25.2 - 33.5 pgOhiohealth Hardin Memorial Hospital MCHC (RBC) [Mass/Vol]31.4 g/dL28.4 - 34.8 g/dLOhiohealth Hardin Memorial HospitalMCV (RBC) [Entitic vol]85.6 fL82.6 - 102.9 fLOhiohealth Hardin Memorial HospitalMonocytes/100 WBC (Bld)6 %3 - 12 %[facility] Memorial HospitalNRBC Automated0.2High0.0 per 100 WBCOhiohealth Hardin Memorial HospitalPlatelet distribution width (Bld) [Ratio]14.7 %High11.8 - 14.4 %Ohio[facility] Hard[facility] Memorial HospitalPlatelet mean volume (Bld) [Entitic vol]9.8 fL8.1 - 13.5 fLFisher-T[facility] HealthPlatelets (Bld) [#/Vol]227 10*3/uL [facility] Memorial HospitalRBC (Bld) [#/Vol]3.27 10*6/uLLow3.95 - 5.11 m/uLSelect Medical Specialty Hospital - [facility]on (Bld) [#/Vol]ANISOCYTOSIS PRESENTOhioHealth Grady Memorial Hospital neutrophils/100 WBC (Bld) 68 %High36 - 65 %Ohio[facility] Memorial HospitalSe Absolute6.46Ohiohealth Hardin Memorial HospitalWBC (Bld) [#/Vol]9.6 10*3/uLMidwest Orthopedic Specialty Hospital with Diffon [id number]. Basophil0.05 k/uL Normal0.00-0.20[facility] HospitalComment on above:Performed By: #### CBC, HEPXA, CMPX, MG, TSHX, TROPI #### [facility] [address] [place] [address] Art Museum Aide: Dexter Fried MD #### LIPR #### [address] [address] Art Museum Aide: Khadra Porter.Imm.Granulocyte0.10 k/uLNormal0.00-0.30[facility] HospitalComment on above:Performed By: #### CBC, HEPXA, CMPX, MG, TSHX, TROPI #### [facility] [address] [place] [address] Art Museum Aide: Dexter Fried MD #### LIPR #### [address] [address] Art Museum Aide: Khadra Porter.Neutrophil (Seg)6.46 k/uLNormal1.50-8.10 [facility] HospitalCombeaumont hospital on above:Performed By: #### CBC, HEPXA, CMPX, MG, TSHX, TROPI #### [facility] [address] [place] [address] Art Museum Aide: Dexter Fried MD #### LIPR #### [address] [address] Art Museum Aide: Paco Tatum MDBasophils/100 WBC (Bld)1 %Normal0-2Mclevel[facility] clinic mercy hospitaly [facility]are Valley HospitalComment on above:Performed By: #### CBC, HEPXA, CMPX, MG, TSHX, TROPI #### [facility] [address] [place] [address] Art Museum Aide: Dexter Fried MD #### LIPR #### [address] [address] Art Museum Aide: Paco Tatum MDEosinophils (Bld) [#/Vol]0.22 10*3/uLNormal 0.00-0.44[facility] HospitalCombeaumont hospital on above:Performed By: #### CBC, HEPXA, CMPX, MG, TSHX, TROPI #### [facility] [address] [place] [address] Art Museum Aide: Dexter Fried MD #### LIPR #### [address] [address] Art Museum Aide: MARQUITA Porterosinophils/100 WBC (Bld)2 %Normal1-4[facility] HospitalComment on above:Performed By: #### CBC, HEPXA, CMPX, MG, TSHX, TROPI #### [facility] [address] [place] [address] Art Museum Aide: Dexter Fried MD #### LIPR #### [address] [address] Art Museum Aide: Paco Tatum MDErythrocyte distribution width (RBC) [Ratio]14.7 %High11.8-14.4[facility] HospitalComment on above:Performed By: #### CBC, HEPXA, CMPX, MG, TSHX, TROPI #### [facility] [address] [place] [address] Art Museum Aide: Dexter Fried MD #### LIPR #### [address] [address] Art Museum Aide: Paco Tatum MDHematocrit (Bld) [Volume fraction]28.0 %Low 36.3-47.1M[facility] hospitaly [facility] on above:Performed By: #### CBC, HEPXA, CMPX, MG, TSHX, TROPI #### [facility] [address] [place] [address] Art Museum Aide: Dexter Fried MD #### LIPR #### [address] [address] Art Museum Aide: Paco Tatum MDHemoglobin (Bld) [Mass/Vol]8.8 g/dLLow11.9-15.1 [facility] on above:Performed By: #### CBC, HEPXA, CMPX, MG, TSHX, TROPI #### [facility] [address] [place] [address] Art Museum Aide: Dexter Fried MD #### LIPR #### [address] [address] Art Museum Aide: Paco Tatum MDImmature granulocytes/100 WBC (Bld)1 %Lqtf9VckslLegacy HealthCombeaumont hospital on above:Performed By: #### CBC, HEPXA, CMPX, MG, TSHX, TROPI #### [facility] [place] [address] Art Museum Aide: Dexter Fried MD #### LIPR #### [address] [address] Art Museum Aide: Paco Tatum MDLymphocytes (Bld) [#/Vol]2.14 10*3/uLNormal 1.10-3.70[facility] HospitalComment on above:Performed By: #### CBC, HEPXA, CMPX, MG, TSHX, TROPI #### [facility] [address] [place] [address] Art Museum Aide: Dexter Fried MD #### LIPR #### [address] [address] Art Museum Aide: Paco Tatum MDLymphocytes/100 WBC (Bld)22 %Vjg94-74YhgisSuburban Community Hospital & Brentwood HospitalComment on above:Performed By: #### CBC, HEPXA, CMPX, MG, TSHX, TROPI #### [facility] [address] [place] [address] Art Museum Aide: Dexter Fried MD #### LIPR #### [address] [address] Art Museum Aide: OCTAVIA PorterCH (RBC) [Entitic mass]26.9 guQvlnez64.2-33.5 [facility] HospitalCombeaumont hospital on above:Performed By: #### CBC, HEPXA, CMPX, MG, TSHX, TROPI #### [facility] [address] [place] [address] Art Museum Aide: Dexter Fried MD #### LIPR #### [address] [address] Art Museum Aide: AMIRA PorterC (RBC) [Mass/Vol]31.4 g/iYNmcjjt14.4-34.8 [facility] HospitalCombeaumont hospital on above:Performed By: #### CBC, HEPXA, CMPX, MG, TSHX, TROPI #### [facility] [address] [place] [address] Art Museum Aide: Dexter Fried MD #### LIPR #### [address] [address] Art Museum Aide: OCTAVIA PorterCV (RBC) [Entitic vol]85.6 cJGukvgg93.6-102.9 [facility] on above:Performed By: #### CBC, HEPXA, CMPX, MG, TSHX, TROPI #### [facility] [address] [place] [address] Art Museum Aide: Dexter Fried MD #### LIPR #### [address] [address] Art Museum Aide: OCTAVIA Porteronocytes (Bld) [#/Vol]0.58 10*3/uLNormal 0.10-1.20[facility] on above:Performed By: #### CBC, HEPXA, CMPX, MG, TSHX, TROPI #### [facility] [address] [place] [address] Art Museum Aide: Dexter Fried MD #### LIPR #### [address] [address] Art Museum Aide: OCTAVIA Porteronocytes/100 WBC (Bld)6 %Normal3-12[facility] HospitalCombeaumont hospital on above:Performed By: #### CBC, HEPXA, CMPX, MG, TSHX, TROPI #### [facility] [address] [place] [address] Art Museum Aide: Dexter Fried MD #### LIPR #### [address] [address] Art Museum Aide: Paco Tatum MDNeutrophil (Seg)68 %Orhk49-92XyhtqMercy Health Anderson Hospital on above:Performed By: #### CBC, HEPXA, CMPX, MG, TSHX, TROPI #### [facility] [address] [place] [address] Art Museum Aide: Dexter Fried MD #### LIPR #### [address] [address] Art Museum Aide: Paco Tatum MDNRBC Automated0.2 per 100 WBCHigh0.0[facility] on above:Performed By: #### CBC, HEPXA, CMPX, MG, TSHX, TROPI #### [facility] [address] [place] [address] Art Museum Aide: Dexter Fried MD #### LIPR #### [address] [address] Art Museum Aide: Keysha Porter mean volume (Bld) [Entitic vol]9.8 fL Normal8.1-13.5[facility] on above:Performed By: #### CBC, HEPXA, CMPX, MG, TSHX, TROPI #### [facility] [address] [place] [address] Art Museum Aide: Dexter Fried MD #### LIPR #### [address] [address] Art Museum Aide: Dinorah Portertejocelyn (Bld) [#/Vol]227 10*3/jRRptatf527-977 [facility] on above:Performed By: #### CBC, HEPXA, CMPX, MG, TSHX, TROPI #### [facility] [address] [place] [address] Art Museum Aide: Dexter Fried MD #### LIPR #### [address] [address] Art Museum Aide: PATRICIA Porter (Bld) [#/Vol]3.27 10*6/uLLow3.95-5.11[facility] HospitalComment on above:Performed By: #### CBC, HEPXA, CMPX, MG, TSHX, TROPI #### [facility] [address] [place] [address] Art Museum Aide: Dexter Fried MD #### LIPR #### [address] [address] Art Museum Aide: PATRICIA Porter morphology finding Nom (Bld)ANISOCYTOSIS PRESENTNormalSuburban Community Hospital & Brentwood HospitalComment on above:Performed By: #### CBC, HEPXA, CMPX, MG, TSHX, TROPI #### [facility] [address] [place] [address] Art Museum Aide: Dexter Fried MD #### LIPR #### [address] [address] Art Museum Aide: Paco Tatum MDWBC (Bld) [#/Vol]9.6 10*3/uLNormal3.5-11.3Mclevel[facility] clinic [facility] hospitaly [facility] Valley HospitalComment on above:Performed By: #### CBC, HEPXA, CMPX, MG, TSHX, TROPI #### [facility] [address] [place] [address] Art Museum Aide: Dexter Fried MD #### LIPR #### [address] [address] Art Museum Aide: Paco Tatum MDHepatic Function Panelon [id number] [Mass/Vol]3.2 g/dLLow3.5 - 5.2 g/dLMercy HealthALP (Bld) [Catalytic activity/Vol]102 U/L35 - 104 U/LMercy HealthALT [Catalytic activity/Vol]44 U/L High5 - 33 U/LMercy HealthAST [Catalytic activity/Vol]29 U/L<32MerProvidence St. [facility] Hospital Bilirubin [Mass/Vol]0.13 mg/dLLow0.3 - 1.2 mg/dLFisher-Titus Medical Center HealthBilirubin, Indirect Can not be calculated0.00 - 1.00 mg/dLOhiohealth Hardin Memorial HospitalBilirubin.indirect [Mass/Vol] mg/dL<0.31 mg/dLOhiohealth Hardin Memorial HospitalFree PSA/Total PSA [Mass fraction]6.2 g/dLLow6.4 - 8.3 g/dLOhiohealth Hardin Memorial HospitalLactate Dehydrogenaseon 26-02-9887SAA [Catalytic activity/Vol]183 U/CQrlmpe870-863UjbdcSuburban Community Hospital & Brentwood HospitalComment on above: Performed By: #### CBC, HEPXA, CMPX, MG, TSHX, TROPI #### [facility] [address] [place] [address] Art Museum Aide: Dexter Fried MD #### LIPR #### [facility] coRank [address] [place] [phone] Art Museum Aide: Paco Tatum MDLD183 U/L135 - 214 U/LMcleveland clinic mercy hospitaly HealthLiver Profile on 04-68-4613Eyzotvm [Mass/Vol]3.2 g/dLLow3.5-5.2MForks Community HospitalComment on above:Performed By: #### CBC, HEPXA, CMPX, MG, TSHX, TROPI #### [facility] [address] [place] [address] Art Museum Aide: Dexter Fried MD #### LIPR #### [address] [address] Art Museum Aide: Dinah Porter Wqmh150 U/XPfoydn93-657EazaySuburban Community Hospital & Brentwood HospitalComment on above:Performed By: #### CBC, HEPXA, CMPX, MG, TSHX, TROPI #### [facility] [address] [place] [address] Art Museum Aide: Dexter Fried MD #### LIPR #### [address] [address] Art Museum Aide: Paco Tatum MDALT [Catalytic activity/Vol]44 U/LHigh5-33[facility] HospitalCombeaumont hospital on above:Performed By: #### CBC, HEPXA, CMPX, MG, TSHX, TROPI #### [facility] [address] [place] [address] Art Museum Aide: Dexter Fried MD #### LIPR #### [address] [address] Art Museum Aide: Paco Tatum MDAST [Catalytic activity/Vol]29 U/LNormal<32[facility] HospitalCombeaumont hospital on above:Performed By: #### CBC, HEPXA, CMPX, MG, TSHX, TROPI #### [facility] [address] [place] [address] Art Museum Aide: Dexter Fried MD #### LIPR #### [address] [address] Art Museum Aide: Paco Tatum MDBilirubin [Mass/Vol]0.13 mg/dLLow0.3-1.2M[facility] hospitaly [facility] HospitalCombeaumont hospital on above:Performed By: #### CBC, HEPXA, CMPX, MG, TSHX, TROPI #### [facility] [address] [place] [address] Art Museum Aide: Dexter Fried MD #### LIPR #### [address] [address] Art Museum Aide: Paco Tatum MDBilirubin, IndirectCan not be calculatedNormal 0.00-1.00[facility] Centercy [facility] Valley HospitalComment on above:Performed By: #### CBC, HEPXA, CMPX, MG, TSHX, TROPI #### [facility] [address] [place] [address] Art Museum Aide: Dexter Fried MD #### LIPR #### [address] [address] Art Museum Aide: Oumou Porterirubin.indirect [Mass/Vol]mg/dLNormal<0.31 [facility] HospitalComment on above:Performed By: #### CBC, HEPXA, CMPX, MG, TSHX, TROPI #### [facility] [address] [place] [address] Art Museum Aide: Dexter Fried MD #### LIPR #### [address] [address] Art Museum Aide: Paco Tatum MDProtein [Mass/Vol]6.2 g/dLLow6.4-8.3Mercy [facility] Valley HospitalComment on above:Performed By: #### CBC, HEPXA, CMPX, MG, TSHX, TROPI #### [facility] [address] [place] [address] Art Museum Aide: Dexter Fried MD #### LIPR #### [place] [address] Art Museum Aide: Jani Portergnesiumon 06-14-6073Xytxzaqba [Mass/Vol]1.9 mg/dLNormal1.6-2.6Mercy [facility] Valley HospitalComment on above:Performed By: #### CBC, HEPXA, CMPX, MG, TSHX, TROPI #### [facility] [address] [place], [place] [phone] Art Museum Aide: Dexter Fried MD #### LIPR #### [place] [address] [place], [place] [phone] Art Museum Aide: Jani Portergnesium [Mass/Vol]1.9 mg/dL1.6 - 2.6 mg/dL [facility] HospitalMicroscopic Urinalysison 11-25-2021-[facility] Memorial HospitalBacteria, UARARE AbnormalNoneMercy HealthEpithelial Cells UA0 TO 2Mercy HealthInterpretation and review of laboratory resultsAbnormAkron Children's HospitalRBC, UA5 TO [address] Joseph's HospitalWBC, UA0 TO 2[facility] HospitalNo Panel Informationon [id number] and review of laboratory resultsAbOsceola Ladd [facility] Troponinon [id number], High Sens6 ng/LNormal0-14[facility] Comment on above:Result Comment: High Sensitivity Troponin values cannot be compared with other Troponin methodologies. Patients with high levels of Biotin oral intake (i.e >5mg/day) may have falsely decreased Troponin levels. Samples collected within 8 hours of biotin intake may require additional information for diagnosis.Performed By: #### CBC, HEPXA, CMPX, MG, TSHX, TROPI #### [facility] [address] [place], [place] [id number] Art Museum Aide: Dexter Fried MD #### LIPR #### [address] [id number] Art Museum Aide: Paco Tatum MDTroponin, High Sensitivity6 ng/L0 - 14 ng/LMercy Premier Health Miami Valley HospitalComment on above: High Sensitivity Troponin values cannot be compared with other Troponin methodologies. Patients with high levels of Biotin oral intake (i.e >5mg/day) may have falsely decreased Troponin levels. Samples collected within 8 hours of biotin intake may require additional information for diagnosis. UA w/Reflex Cultureon [id number], SemiQt,UrNegativeNormalNEGMerLegacy HealthComment on above:Performed By: #### CBC, HEPXA, CMPX, MG, TSHX, TROPI #### [facility] [address] [place] [address] [employer] Museum Aide: Dexter Fried MD #### LIPR #### [address] [address] Art Museum Aide: Gerber Porter, Urine3+AbnormalNEGSuburban Community Hospital & [facility] Comment on above:Performed By: #### CBC, HEPXA, CMPX, MG, TSHX, TROPI #### [facility] [address] [place] [address] Art Museum Aide: Dexter Fried MD #### LIPR #### [address] [address] Art Museum Aide: CELESTE Porterscrity (U)SLIGHTLY CLOUDYAbnormalCLEARMercy Multicare Valley HospitalComment on above:Performed By: #### CBC, HEPXA, CMPX, MG, TSHX, TROPI #### [facility] [address] [place] [address] Art Museum Aide: Dexter Fried MD #### LIPR #### [address] [address] Art Museum Aide: CELESTE Porterbarn[facility] (U)AMBERAbnormalYELMerLegacy Health Comment on above:Performed By: #### CBC, HEPXA, CMPX, MG, TSHX, TROPI #### [facility] [address] [place] [address] Art Museum Aide: Dexter Fried MD #### LIPR #### [address] [address] Art Museum Aide: Paco Tatum MDGlucose Ql (U)NegativeNormalNEGMercy [facility] on above:Performed By: #### CBC, HEPXA, CMPX, MG, TSHX, TROPI #### [facility] [address] [place] [address] Art Museum Aide: Dexter Fried MD #### LIPR #### [address] [address] Art Museum Aide: Paco Tatum MDKetones Ql (U)NegativeNormalNEGMercy [facility] on above:Performed By: #### CBC, HEPXA, CMPX, MG, TSHX, TROPI #### [facility] [address] [place] [address] Art Museum Aide: Dexter Fried MD #### LIPR #### [address] [address] Art Museum Aide: Paco Tatum MDLeukocyte esterase Test strip Ql (U)TRACE AbnormalNEGMercy Multicare Valley HospitalCombeaumont hospital on above:Performed By: #### CBC, HEPXA, CMPX, MG, TSHX, TROPI #### [facility] [address] [place] [address] Art Museum Aide: Dexter Fried MD #### LIPR #### [address] [address] Art Museum Aide: Paco Tatum MDNitrite,UrNegativeNormalNEGMerLourdes Counseling Center on above:Performed By: #### CBC, HEPXA, CMPX, MG, TSHX, TROPI #### [facility] [address] [place] [address] Art Museum Aide: Dexter Fried MD #### LIPR #### [address] [address] Art Museum Aide: RAHUL Porter,Ur6.2Cjuofa6.0-8.0[facility] Comment on above:Performed By: #### CBC, HEPXA, CMPX, MG, TSHX, TROPI #### [facility] [address] [place] [address] Art Museum Aide: Dexter Fried MD #### LIPR #### [address] [address] Art Museum Aide: RAHUL [facility]co[facility] Ql (U)NegativeNormalNEGSuburban Community Hospital & Brentwood HospitalComment on above:Performed By: #### CBC, HEPXA, CMPX, MG, TSHX, TROPI #### [facility] [address] [place] [address] Art Museum Aide: Dexter Fried MD #### LIPR #### [address] [address] Art Museum Aide: KELLY Porterpec. [place],Ur1.489Llfpcd8.005-1.030[facility] Brentwood HospitalComment on above:Performed By: #### CBC, HEPXA, CMPX, MG, TSHX, TROPI #### [facility] [address] [place] [address] Art Museum Aide: Dexter Fried MD #### LIPR #### [address] [address] Art Museum Aide: Paco Tatum MDUrobilinogen,UrNormalNormalNORMMercy Health [facility] Hospital on above:Performed By: #### CBC, HEPXA, CMPX, MG, TSHX, TROPI #### [facility] [address] [place] [address] [phone] Art Museum Aide: Dexter Fried MD #### LIPR #### [address] [phone] Art Museum Aide: Paco Tatum MDUrinalysis with Reflex to Cultureon 11-25-2021 Bilirubin UrineNegativeNEGATIVEMercy HealthColor, UAAMBERAbnormalYellowMercy HealthGlucose, UrNegativeNEGATIVEMercy HealthInterpretation and review of laboratory resultsAbnormalMercy HealthKetones Ql (U)NegativeNEGATIVEMercy Health Leukocyte esterase Test strip Ql (U)TRACEAbnormalNEGATIVEMercy HealthNitrite, UrineNegativeNEGATIVEMercy HealthpH, UA6.0Mercy HealthProtein, UANegative NEGATIVEMercy HealthSpecific [place], UA1.015Mercy HealthTurbidity UASLIGHTLY CLOUDYAbnormalClearMercy HealthUrine Hgb3+AbnormalNEGATIVEMercy Health Urobilinogen, UrineNormalNormalMercy HealthMercy HealthUrinalysis,Microon 11-25-2021-----NormalSuburban Community Hospital & Brentwood HospitalComment on above:Performed By: #### CBC, HEPXA, CMPX, MG, TSHX, TROPI #### [facility] [address] [place] [address] Art Museum Aide: Dexter Fried MD #### LIPR #### [address] [phone] Art Museum Aide: Paco Tatum MDBacteriaRAREAbSt. Mary's Medical [facility] Comment on above:Performed By: #### CBC, HEPXA, CMPX, MG, TSHX, TROPI #### [facility] [address] [place] [address] Art Museum Aide: Dexter Fried MD #### LIPR #### [address] [phone] Art Museum Aide: Paco Tatum MDEpithelial cells LM Ql (Urine sed)0 TO 2Normal 0-5Mercy [facility]are Valley HospitalComment on above:Performed By: #### CBC, HEPXA, CMPX, MG, TSHX, TROPI #### [facility] [address] [place] [address] Art Museum Aide: Dexter Fried MD #### LIPR #### [address] [address] Art Museum Aide: Paco Tatum MDUrine RBC's5 TO 47Ojsmef8-9Angzs [facility]are Valley HospitalComment on above:Performed By: #### CBC, HEPXA, CMPX, MG, TSHX, TROPI #### [facility] [address] [place] [address] Art Museum Aide: Dexter Fried MD #### LIPR #### [address] [address] Art Museum Aide: Paco Tatum MDUrine WBC's0 TO 6Luoldo9-1Twwsj [facility] Valley HospitalComment on above:Performed By: #### CBC, HEPXA, CMPX, MG, TSHX, TROPI #### [facility] [address] [place] [address] Art Museum Aide: Dexter Fried MD #### LIPR #### [address] [address] Art Museum Aide: Paco Tatum [facility] MEDICAL CENTEROINT OF CARE GLUCOSEon 86-63-5620Zebgwoq [Mass/Vol]123 mg/dLCritically hchy42-232Wxo [facility] on above: Performed By: #### CVDTBH #### [facility] [address] [place] [address] Dr. Emmanuel Dugan AUTO DIFFon 20-50-9238SDDP #0.0 103/ulNormal0.0-0.1The Nichole HospitalComment on above:Performed By: #### CBC #### [facility] [address] [place] [address] Dr. Emmaunel MurrayBasophils/100 WBC (Bld)0.3 %Normal0.2-2.0[facility] Comment on above:Performed By: #### CBC #### [facility] [address] [place] [address] Dr. Emmanuel Hopkins #0.2 103/ulNormal0.0-0.7The St. [facility]'S HospitalComment on above: Performed By: #### CBC #### [facility] [address] [place] [address] Dr. Emmanuel Brownosinophils/100 WBC (Bld)1.4 %Normal0.9-7.0[facility] Comment on above:Performed By: #### CBC #### [facility] [address] [place] [address] Dr. Emmanuel Brownrythrocyte distribution width (RBC) [Ratio]14.7 %Vldche34.0-15.0 [facility] HospitalComment on above:Performed By: #### CBC #### [facility] [address] [place] [address] Dr. Emmanuel MurrayHematocrit (Bld) [Volume fraction]28.9 %Critically low36.0-48.0 [facility] HospitalComment on above:Performed By: #### CBC #### [facility] [address] [place] [address] Dr. Emmanuel MurrayHemoglobin (Bld) [Mass/Vol]9.5 g/dLCritically low12.0-16.0[facility] HospitalComment on above:Performed By: #### CBC #### [facility] [address] [place] [address] Dr. Emmanuel Gunderson #0.09 10e3/ulCritically high0.00-0.03[facility] Comment on above:Performed By: #### CBC #### [facility] [address] [place] [address] Dr. Emmanuel Gunderson %0.8 %Critically high0.0-0.5The St. [facility]'S HospitalComment on above:Performed By: #### CBC #### [facility] [address] [place] [address] Dr. Emmanuel Dorsey #2.5 103/ulNormal1.2-3.8The St[facility]'S HospitalComment on above:Performed By: #### CBC #### [facility] [address] [place] [address] Dr. Emmanuel Gonzalezhocytes/100 WBC (Bld)21.4 %Trazoz36.5-60.0The [facility]'S HospitalComment on above:Performed By: #### CBC #### [facility] [address] [place] [address] Dr. Emmanuel Guevara DIFF REQNONormalThe St. Anthony'S HospitalComment on above: Performed By: #### CBC #### [facility] [address] [place] [address] Dr. Emmanuel Austin (RBC) [Entitic mass]28.1 oyVpzdaz31.7-34.0The St[facility]'S HospitalComment on above:Performed By: #### CBC #### [facility] [address] [place] [address] Dr. Emmanuel Marcus (RBC) [Mass/Vol]32.9 g/nWLoxdmx58.9-35.2The St[facility]'S HospitalComment on above:Performed By: #### CBC #### [facility] [address] [place] [address] Dr. Emmanuel Guerra (RBC) [Entitic vol]85.5 xCJfajby49.0-99.0The St[facility]'S HospitalComment on above:Performed By: #### CBC #### [facility] [address] [place] [address] Dr. Emmanuel Baldwin #0.6 103/ulNormal0.3-0.8The [facility]'S HospitalComment on above:Performed By: #### CBC #### [facility] [address] [place] [address] Dr. Emmanuel Sanchezocytes/100 WBC (Bld)5.2 %Normal1.7-12.0The [facility] Comment on above:Performed By: #### CBC #### [facility] [address] [place] [address] Dr. Emmanuel Hannah #8.1 103/ulCritically high1.4-6.5ThMercy Health St. [facility] Comment on above:Performed By: #### CBC #### [facility] [address] [place] [address] Dr. Emmanuel Villaltautrophils/100 WBC (Bld)70.9 %Kauxgp38.0-75.0The [facility]'S HospitalComment on above:Performed By: #### CBC #### [facility] [address] [place] [address] Dr. Emmanuel Coboslet mean volume (Bld) [Entitic vol]10.0 fLNormal9.5-13.5The St. [facility]'S HospitalComment on above:Performed By: #### CBC #### [facility] [address] [place] [address] Dr. Emmanuel MurrayPLT186 103/pnHfrsze272-188Vvz St. Anthony'S HospitalComment on above: Performed By: #### CBC #### [facility] [address] [place] [address] Dr. Emmanuel MurrayRBC3.38 106/ulCritically low4.20-5.40The [facility]'S HospitalComment on above:Performed By: #### CBC #### [facility] [address] [place] [address] Dr. Emmanuel MurrayWBC11.4 103/ulCritically high4.0-11.0The [facility]'S HospitalComment on above:Performed By: #### CBC #### [facility] [address] [place] [address] Dr. Emmanuel DuganC AUTO DIFFon 48-10-7453DMTK #0.1 103/ulNormal0.0-0.1The [facility]'S HospitalComment on above:Performed By: #### CVDTBH #### [facility] [address] [place] [address] Dr. Emmanuel MurrayBasophils/100 WBC (Bld)0.4 %Normal0.2-2.0The [facility] Comment on above:Performed By: #### CVDTBH #### [facility] [address] [place] [address] Dr. Emmanuel Hopkins #0.1 103/ulNormal0.0-0.7The [facility]'S HospitalComment on above: Performed By: #### CVDTBH #### [facility] [address] [place] [address] Dr. Emmanuel Brownosinophils/100 WBC (Bld)0.4 %Critically low0.9-7.0The [facility]'S HospitalComment on above:Performed By: #### CVDTBH #### [facility] [address] [place] [address] Dr. Emmanuel Brownrythrocyte distribution width (RBC) [Ratio]14.8 %Xommfa86.0-15.[address] [facility]'S HospitalComment on above:Performed By: #### CVDTBH #### [facility] [address] [place] [address] Dr. Emmanuel MurrayHematocrit (Bld) [Volume fraction]32.6 %Critically low36.0-48.[address] [facility]'S HospitalComment on above:Performed By: #### CVDTBH #### [facility] [address] [place] [address] Dr. Emmanuel MurrayHemoglobin (Bld) [Mass/Vol]10.6 g/dLCritically low12.0-16.0The [facility]'S HospitalComment on above:Performed By: #### CVDTBH #### [facility] [address] [place] [address] Dr. Emmanuel Gunderson #0.10 10e3/ulCritically high0.00-0.03The [facility] Comment on above:Performed By: #### CVDTBH #### [facility] [address] [place] [address] Dr. Emmanuel Gunderson %0.9 %Critically high0.0-0.5The [facility]'S HospitalComment on above:Performed By: #### CVDTBH #### [facility] [address] [place] [address] Dr. Emmanuel Dorsey #2.3 103/ulNormal1.2-3.8The [facility]'S HospitalComment on above:Performed By: #### CVDTBH #### [facility] [address] [place] [address] Dr. Emmanuel Gonzalezhocytes/100 WBC (Bld)19.6 %Critically low20.5-60.0The [facility]'S HospitalComment on above:Performed By: #### CVDTBH #### [facility] [address] [place] [address] Dr. Emmanuel Guevara DIFF REQNONormalThe St. [facility]'S HospitalComment on above: Performed By: #### CVDTBH #### [facility] [address] [place] [address] Dr. Emmanuel Austin (RBC) [Entitic mass]27.2 wkSdubqn95.7-34.0The St[facility]'S HospitalComment on above:Performed By: #### CVDTBH #### [facility] [address] [place] [address] Dr. Emmanuel Marcus (RBC) [Mass/Vol]32.5 g/cIBatxju91.9-35.2The [facility]'S HospitalComment on above:Performed By: #### CVDTBH #### [facility] [address] [place] [address] Dr. Emmanuel Marcus (RBC) [Entitic vol]83.6 oKVcwcym82.0-99.0The [facility]'S HospitalComment on above:Performed By: #### CVDTBH #### [facility] [address] [place] [address] Dr. Emmanuel Baldwin #0.5 103/ulNormal0.3-0.8The [facility]'S HospitalComment on above:Performed By: #### CVDTBH #### [facility] [address] [place] [address] Dr. Emmanuel Sanchezocytes/100 WBC (Bld)4.4 %Normal1.7-12.0[facility] Comment on above:Performed By: #### CVDTBH #### [facility] [address] [place] [address] Dr. Emmanuel Hannah #8.7 103/ulCritically high1.4-6.5ThMercy Health St. [facility] Comment on above:Performed By: #### CVDTBH #### [facility] [address] [place] [address] Dr. Emmanuel Villaltautrophils/100 WBC (Bld)74.3 %Ejepyx22.0-75.0The [facility]'S HospitalComment on above:Performed By: #### CVDTBH #### [facility] [address] [place] [address] Dr. Emmanuel MurrayPlatelet mean volume (Bld) [Entitic vol]10.1 fLNormal9.5-13.5The St[facility]'S HospitalComment on above:Performed By: #### CVDTBH #### [facility] [address] [place] [address] Dr. Emmanuel MurrayPLT239 103/mgAnxlqe363-861JqaMercy Health West HospitalComment on above: Performed By: #### CVDTBH #### [facility] [address] [place] [address] Dr. Emmanuel MurrayRBC3.90 106/ulCritically low4.20-5.40The [facility]'S HospitalComment on above:Performed By: #### CVDTBH #### [facility] [address] [place] [address] Dr. Emmanuel MurrayWBC11.7 103/ulCritically high4.0-11.0[facility] HospitalComment on above:Performed By: #### CVDTBH #### [facility] [address] [place] [address] Dr. Emmanuel Handyvid-19 PCR (CVDENCOMPASS RE[facility])on [id number]-CoV-2 (COVID-19) RNA MYNOR+probe Ql (Unsp spec)Not detectedNormalNOT DETECTEDThe [facility] Comment on above:Result Comment: When diagnostic testing is negative, the [...] for this test is supported by the [place] of Health and Human Service's declaration that circumstances exist to justify the emergency use of in vitro diagnostics for the detection and/or diagnosis of the virus that causes COVID-19. This EUA will remain in effect for the duration of the COVID-19 declaration justifying emergency of IVDs, unless it is terminated or revoked by the FDA (after which the test may no longer be used).Performed By: #### CVDTBH #### [facility] [address] [place] [address] Dr. Emmanuel MurrayDRUG SCREEN RAPID (URINE)on [id number]pKFGWTJLZ [facility] HospitalComment on above:Performed By: #### DRUGRPD #### [facility] [address] [place] [address] Dr. Emmanuel MurrayBARNegativeNormalNEGATIVEMercy Health West HospitalComment on above: Performed By: #### DRUGRPD #### [facility] [address] [place] [address] Dr. Emmanuel MurrayBUPNegativeNormalNEGATIVEMercy Health West HospitalComment on above: Performed By: #### DRUGRPD #### [facility] [address] [place] [address] Dr. Emmanuel MurrayBZONegativeNormalNEGATIVEMercy Health West HospitalComment on above: Performed By: #### DRUGRPD #### [facility] [address] [place] [address] Dr. Emmanuel MurrayCOCNegativeNormalNEGATIVEMercy Health West HospitalComment on above: Performed By: #### DRUGRPD #### [facility] [address] [place] [address] Dr. Emmanuel MillardAshtabula County Medical Centerment on above: Result Comment: AMP (Amphetamine): 500ng/mL, BAR (Barbituates): 200 ng/mL, BZO (Benzodiazepines): 150 ng/mL, BUP (Buprenorphine): 10 ng/mL, PATI (Cocaine): 150 ng/mL, mAMP (Methamphetamine): 500 ng/mL, MTD (Methadone): 200 ng/mL, OPI (Opiates): 100 ng/mL, OXY (Oxycodone): 100 ng/mL, PCP (Phencyclidine): 25 ng/mL, PPX (Propoxyphene): 300 ng/mL, THC (Cannabinoids): 50 ng/mL, TCA (Trycyclic Antidepressants): 300 ng/mLPerformed By: #### DRUGRPD #### [facility] [address] [place] [address] Dr. Emmanuel MurrayDRUG CUT HEADERDRUG CLASS TEST SYSTEM CUT-OFF CONCENTRATIONS ARE FOLLOWS:NormalThe St. [facility]'S HospitalComment on above:Performed By: #### DRUGRPD #### [facility] [address] [place] [address] Dr. Emmanuel MurraymAMPNegativeNormalNEGATIVEMercy Health West HospitalCombeaumont hospital on above: Performed By: #### DRUGRPD #### [facility] [address] [place] [address] Dr. Emmanuel MurrayMTDNegativeNormalNEGATIVEMercy Health West HospitalCombeaumont hospital on above: Performed By: #### DRUGRPD #### [facility] [address] [place] [address] Dr. Emmanuel PruittINegativeNormalNEGATIVEMercy Health West HospitalCombeaumont hospital on above: Performed By: #### DRUGRPD #### [facility] [address] [place] [address] Dr. Emmanuel MurrayOXYNegativeNormalNEGATIVEMercy Health West HospitalCombeaumont hospital on above: Performed By: #### DRUGRPD #### [facility] [address] [place] [address] Dr. Emmanuel MurrayPCPNegativeNormalNEGAvita Health System Ontario HospitalComment on above: Performed By: #### DRUGRPD #### [facility] [address] [address] [address] Emmanuel MurrayPPXNegativeNormalNEGAvita Health System Ontario HospitalComment on above: Performed By: #### DRUGRPD #### [facility] [address] [address] [address] Emmanuel MurrayTCANegativeNormalNEGAvita Health System Ontario HospitalComment on above: Performed By: #### DRUGRPD #### [facility] [address] [address] [address] Emmanuel MurrayTHCNegativeNormalNEGAvita Health System Ontario HospitalComment on above: Performed By: #### DRUGRPD #### [facility] [address] [address] [address] Emmanuel MurrayTYPE AND SCREENon 66-42-0734FWLY AND SCREENNegativeNormalThMercy Health St. Rita's Medical CenterComment on above:Performed By: #### CVDTBH #### [facility] [address] [address] [address] Emmanuel Murray Vital Signs Date TimeVital SignValuePerforming OwfbfqwkaUlsccwky25-39-8779 13:57-0400Body mass index (BMI) [Ratio]44.21 kg/m2Winter BURTON Work Phone: [phone]-[facility] HospitalBeegeoevld72-97-1660 13:57-0400Body .14 kgWinter BURTON Work Phone: [phone]-[facility] HospitalNyxxiqzotm86-38-2395 13:57-0400Diastolic blood yalukxqx20 mm[Hg]Winter BURTON Work Phone: [phone]-[facility] HospitalSnxhgdzytk21-83-7476 13:57-0400Systolic blood uqdftyho420 mm[Hg]Winter BURTON Work Phone: [phone] [place], [place] [address]Ezhbnlhywr03-24-6702 09:13-0400Body mass index (BMI) [Ratio]43.65 kg/l2RtruubanNed Spicer NP Work Phone: [facility] HospitalZogglwkimw01-75-9246 09:13-0400Body tfpeun957.78 kgNed Spicer [employer] Work Phone: [phone]10-01-2025 09:13-0400Diastolic blood fplwtxed45 mm[Hg]Ned Spicer [employer] Work Phone: [phone] [place], [place] [address]Mubfikfatx77-25-6427 09:13-0400Systolic blood mm[Hg]Ned Spicer [employer] Work Phone: [phone] [place], [place] 0156909-19-2025 10:20-0400Body bfogrd005.9 cmEster Pratt MD Work Phone: [phone] [place], [place] 3376509-19-2025 10:20-0400Body mass index (BMI) [Ratio]43.14 kg/m2Ester Pratt MD Work Phone: [phone] [place], [place] 3376509-19-2025 10:20-0400Body wxdfnu744.51 kgEster Pratt MD Work Phone: [phone] [place], [place] 3376509-19-2025 10:20-0400Diastolic blood mm[Hg]Ester Pratt MD Work Phone: [phone] [place], [place] 3376509-19-2025 10:20-0400Heart rate 51 /Kelley Pratt MD Work Phone: [phone] [place], [place] 3376509-19-2025 10:20-0400Systolic blood ujzrkbsl015 mm[Hg]Ester Pratt MD Work Phone: [phone] [place], [place] 3376509-04-2025 08:53-0400Body mass index (BMI) [Ratio]44.37 kg/i2ZvwlwxzkNed Spicer [employer] Work Phone: [phone] [place], [place] 0156909-04-2025 08:53-0400Body bgtqwi080.5 kgNed Spicer [employer] Work Phone: [phone] [place], [place] [address]156909-04-2025 08:53-0400Diastolic blood ylhyavht23 mm[Hg]Ned Spicer [employer] Work Phone: [phone] [place], [place] [address]Hbglhjazdf09-08-9183 08:53-0400Systolic blood mxzfgbiz634 mm[Hg]Ned Spicer [employer] Work Phone: [facility] HospitalOnktxyhsao67-77-3112 09:17-0400Body mass index (BMI) [Ratio]43.08 kg/y2Jylrq Carmen DO Work Phone: [facility] HospitalGeqobtzsig62-03-1655 09:17-0400Body .42 kgCorey Carmen DO Work Phone: [facility] HospitalTlswwvlvqo83-93-1408 09:17-0400Diastolic blood mjiqtowd90 mm[Hg]Bin Carmen DO Work Phone: [facility] HospitalRsydszfwsn13-64-3802 09:17-0400Systolic blood kyjsztpc638 mm[Hg]Bin Carmen DO Work Phone: [facility] HospitalUeayehnrhr95-81-1653 09:27-0400Body mass index (BMI) [Ratio]42.89 kg/o0KgfqeUtica Psychiatric Center07-11-2025 09:27-0400Body weight 102.97 kgUtica Psychiatric [facility]07[facility] 09:27-0400Diastolic blood owqoibaw03 mm[Hg][facility]07-11-2025 09:27-0400Systolic blood iqmsmwcb210 mm[Hg][facility]04-24-2025 11:00-0400Body lbykqv424.9 cmKathleen Hoitenga PA-C Work Phone: [facility]04-24-2025 11:00-0400Body mass index (BMI) [Ratio]45.31 kg/p2Ffehyxfn Hoitenga PA-C Work Phone: [facility]04-24-2025 11:00-0400Body ecicvy772.73 kgKathleen Hoitenga PA-C Work Phone: [facility]04-24-2025 11:00-0400Diastolic blood lgbxutrv28 mm[Hg]Moriah Hoitenga PA-C Work Phone: 1(419)291-[address] [place], [place] 5465904-24-2025 11:00-0400Heart rate 84 /minMoriah Bhattia PA-C Work Phone: 1(717)[facility] [place], [place] 5465904-24-2025 11:00-7996FhN6% (BldA) [Mass fraction]100 %Moriah Bhattia PA-C Work Phone: 1(664)882-[address] [place], [place] 5465904-24-2025 11:00-0400Systolic blood bjdehbjf127 mm[Hg]Moriah Guthrie PA-C Work Phone: 1(075)[facility] [place], [place] 5465901-31-2025 15:32-0500Body bbkvyk364.9 cmRiddhi Plata MD Work Phone: [phone] HospitalTfxdhvsmva37-40-7239 15:32-0500Body mass index (BMI) [Ratio]50.26 kg/m2Riddhi Plata MD Work Phone: 1(596)864-[address] [place], [place] [address]Toxjwxvmwo58-43-4672 15:32-0500Body .66 kgRiddhi Plata MD Work Phone: [phone])150-76[facility] HospitalHzbpvkpfou27-91-9335 15:32-0500Diastolic blood bjdbcown86 mm[Hg]Riddhi Plata MD Work Phone: [phone] HospitalTebhcnogjl96-70-2557 15:32-0500Heart rate91 /min Riddhi Plata MD Work Phone: [phone] HospitalCdkonluqwl49-61-2229 15:32-0500Respiratory rate18 /minRiddhi Plata MD Work Phone: 1(040)991-16[facility] HospitalNbvpmqncdc74-27-8132 15:32-6543LtY9% (BldA) [Mass fraction]97 %Riddhi Plata MD Work Phone: 1(674)832-47[facility] HospitalDbvegqimid26-66-1766 15:32-0500Systolic blood rvuoyaln260 mm[Hg]Riddhi Plata MD Work Phone: [facility] HospitalXmpemglcku69-61-1718 08:16-0500Body xadarl253.9 cmRiddhi Plata MD Work Phone: 1(354)020-[address] [place], [place] [address]Kvqwyyqplj02-97-7806 08:16-0500Body mass index (BMI) [Ratio]53.81 kg/m2Riddhi Plata MD Work Phone: 1(490)[facility] [place], [place] [address]Wkepywvfoq79-50-0086 08:16-0500Body .18 kgRiddhi Plata MD Work Phone: 1(721)[facility] [place], [place] [address]Bbfyladods49-18-3661 08:16-0500Diastolic blood xsyjaafy35 mm[Hg]Riddhi Plata MD Work Phone: 1(537)[facility] [place], [place] [address]Eighkkpwuj22-83-1305 08:16-0500Heart rate86 /min Riddhi Plata MD Work Phone: 1(284)[address] [place] [address]-16-2024 08:16-0500Respiratory rate18 /minRiddhi Plata MD Work Phone: 1(875)[address] [place] [address]-16-2024 08:16-2582YmO4% (BldA) [Mass fraction]98 %Riddhi Plata MD Work Phone: 1(238)[address] [place], [place] 9950612-16-2024 08:16-0500Systolic blood umjwkbqp565 mm[Hg]Riddih Plata MD Work Phone: 1(323)[address] [place], [place] 9950610-03-2024 15:47-0400Body .9 cmRiddhi Plata MD Work Phone: 1(593)[facility] [place], [place] [address]Kniigvpett11-40-7490 15:47-0400Body mass index (BMI) [Ratio]60.27 kg/m2Riddhi Plata MD Work Phone: 1(644)[address] [place], [place] 9950610-03-2024 15:47-0400Body mdflej022.7 kgRiddhi Plata MD Work Phone: 1(403)[address] [place] [address]-03-2024 15:47-0400Respiratory rate18 /minRiddhi Plata MD Work Phone: 1(250)[address] [place], [place] 9950609-25-2024 10:00-0400Body hbldly371.9 cmShannon [facility]09-25-2024 10:00-0400Body mass index (BMI) [Ratio]60.95 kg/e8Cvthmgc [facility]09-25-2024 10:00-0400Body uphlgk297.33 kgShannon Jerog [facility]08-22-2024 12:07-0400Body gipqnw777.9 cmMattblair Manzo MD Work Phone: 1(732)[facility] [place], [place] [address]Comment on above:5'1 05-01-2024 12:07-0400Body mass index (BMI) [Ratio]63.86 kg/s0IsnllkyTonia Manzo MD Work Phone: 1(748)[address] [place], [place] 7644808-22-2024 12:07-0400Body rngphe596.32 kgTonia Manzo MD Work Phone: 1(545)[address] [place], [place] 7644808-22-2024 12:07-0400Diastolic blood vcbhykws21 mm[Hg]Tonia Manzo MD Work Phone: 1(133)[address] [place], [place] 7644808-22-2024 12:07-0400Heart rate 108 /minMattblair Manzo MD Work Phone: 1(667)[address] [place], [place] 7644808-22-2024 12:07-0400Systolic blood tcuyfdyo718 mm[Hg]Tonia Manzo MD Work Phone: 1(544)[address] [place], [place] 7644808-15-2024 08:54-0400Body .9 cmMalionel Mnazo MD Work Phone: 1(277)[facility] [place], [place] 4448308-15-2024 08:35-0400Body agyqhsedwbm42.2 [degF]Tonia Manzo MD Work Phone: 1(597)[facility] [place], [place] 4448308-15-2024 08:35-0400Diastolic blood tdvxvxuy66 mm[Hg]Tonia Manzo MD Work Phone: 1(292)[facility] [place], [place] 4448308-15-2024 08:35-0400Heart rate 52 /minMattblair Manzo MD Work Phone: 1(813)[address] [place], [place] 7644808-15-2024 08:35-0400 Respiratory rate20 /minTonia Manzo MD Work Phone: [facility]08-15-2024 08:35-7683FcY3% (BldA) [Mass fraction]98 %Tonia Manzo MD Work Phone: [facility]08-15-2024 08:35-0400Systolic blood nwteexne193 mm[Hg]Tonia Manzo MD Work Phone: [facility]08-15-2024 08:30-0400Body mass index (BMI) [Ratio]66.9 kg/f8Nqhohpsblair Manzo MD Work Phone: [phone])811-[facility]08-15-2024 08:30-0400Body kxfrum255.6 kgMattlaw Anais GUERRERO Work Phone: [facility]08-06-2024 08:49-0400Body zabnfz588.[address]08-06-2024 08:49-0400Body mass index (BMI) [Ratio]67.98 kg/r0Drfdg[address]08-06-2024 08:49-0400Body zuypdpmrztf32.2 [degF][address]08-06-2024 08:49-0400Body zejsxi641.[address]08-06-2024 08:49-0400Diastolic blood mm[Hg][address]08-06-2024 08:49-0400Heart rate 76 /min[address]08-06-2024 08:49-0400Respiratory rate18 /min[address]08-06-2024 08:49-6626KaA7% (BldA) [Mass fraction]97 %[address]08-06-2024 08:49-0400Systolic blood twrntaww244 mm[Hg][address]07-18-2024 13:33-0400Body height 157.5 cmMattblair Manzo MD Work Phone: 1(934)476-[facility]07-18-2024 13:33-0400Body mass index (BMI) [Ratio]65.43 kg/k2Twmomywblair Manzo MD Work Phone: 1(005)685-[facility] MilwaukeeBar[facility] HospitalAO[facility] Medical Ryfozo25-97-5237 13:33-0400Body .3 kgMattblair Manzo MD Work Phone: 1(439)496-[facility] HospitalSterio.me Xoabit44-30-1978 13:33-0400Diastolic blood ylfgmyed39 mm[Hg]Tonia Manzo MD Work Phone: 1(204)[facility] [place], [place] [address]Sterio.me Dhuhik13-21-2606 13:33-0400Heart rate 76 /minMattblair Manzo MD Work Phone: 1(640)[facility] [place], [place] [address]Sterio[employer]me Kfxveq51-53-1331 13:33-0400 Respiratory rate16 /minMattlaw Anais GUERRERO Work Phone: 1(979)[facility] [place]9[facility] HospitalSterio.me Qkiroe54-30-1534 13:33-0400Systolic blood ognokvpn546 mm[Hg]Tonia Manzo MD Work Phone: 1(385)707-[facility] [place]2[facility] HospitalSterio.me Ujvjas52-84-4577 08:27-0400Body mvoims779.5 April Venegas MD Work Phone: 1(161)758-[address] [place], [place] [address] Ipdczq20-25-8464 08:27-0400Body mass index (BMI) [Ratio]66.94 kg/a1Pasupjseferino Venegas MD Work Phone: 1(619)736-[address] [place], [place] [address] Qiplql73-44-0908 08:27-0400Body lsteop232.02 kgThseferino Venegas MD Work Phone: 1(567)265-[facility]endingStandardBarre City HospitalAO[facility] Medical Outlrr68-90-6488 08:27-0400Diastolic blood qxzoxorj03 mm[Hg]Cr Venegas MD Work Phone: 1(528)004-LendingStandardBarre City HospitalAO[facility] Medical Apxtyc58-25-4307 08:27-0400Heart rate 80 /minThseferino Venegas MD Work Phone: 1(655)768-LendingStandardBarre City HospitalAO[facility] Medical Whuhgy81-13-1576 08:27-3661KcO7% (BldA) [Mass fraction]97 %Cr Venegas MD Work Phone: 1(622)565-[address] [place], [place] [address]85007-08-2024 08:27-0400Systolic blood vqolzwrz804 mm[Hg]Cr Venegas MD Work Phone: [facility]06-27-2024 13:00-0400Body mass index (BMI) [Ratio]66.21 kg/u6Iemyorp [facility]06-27-2024 13:00-0400Body mvflan721.2 kgShannon [facility]05-30-2024 13:00-0400Body mass index (BMI) [Ratio]66.76 kg/g5Hdutdue [facility]05-30-2024 13:00-0400Body cuipaz324.56 kgShannon [facility]04-24-2024 12:00-0400Body mass index (BMI) [Ratio]65.41 kg/m2 Jenny [facility]04-24-2024 12:00-0400Body lpzgre792.21 kg Jenny [facility]03-27-2024 13:00-0400Body mass index (BMI) [Ratio]65.92 kg/i9Dtyelqp [facility]03-27-2024 13:00-0400 Body qvawdz069.48 kgShannon [facility]02-29-2024 11:00-0500 Body mass index (BMI) [Ratio]65.66 kg/x7Qxiuidb [facility] 11-08-2023 11:00-0500Body diqjkx945.84 kgShannon [facility] 10-10-2023 07:53-0500Body riamjq362.9 cmTheodora Early MD Work Phone: 8(198)454-[address] [place], [place] 3685001-31-2024 07:53-0500Body mass index (BMI) [Ratio]68.4 kg/w0HopbfoTheodora Early MD Work Phone: [facility]01-31-2024 07:53-0500Body wyscft618.2 kgTheodora Early MD Work Phone: [facility] [employer] Tttglm97-09-0599 07:53-0500Diastolic blood fvxsnnly10 mm[Hg]Theodora Early MD Work Phone: [facility] [employer] Upeaye18-55-2450 07:53-0500Heart rate 78 /minTheodora Early MD Work Phone: [phone] [employer] Iadhdq20-78-7735 07:53-7567DhW1% (BldA) [Mass fraction]97 %Theodora Early MD Work Phone: 1(339)300-[address] [place] [address] [employer] Conmqg62-91-1217 07:53-0500Systolic blood oxigxbhi812 mm[Hg]Theodora Early MD Work Phone: 1(593)279-[address] [place] [address] [employer] Riwbbh08-17-1435 11:00-0500Body mass index (BMI) [Ratio]67.38 kg/m2Moearae [facility] [employer] Qkoesp32-25-3488 11:00-0500Body tdhujt599.75 kgJenny NogueiraRiverside Methodist Hospital01-18-2024 11:41-0500Body ycjfqk641.9 cmSradha Vidal DO Work Phone: [facility] [employer] Nupkwf93-15-2416 11:41-0500Body mass index (BMI) [Ratio]67.85 kg/w6IggicuJalyn Vidal DO Work Phone: [facility] [employer] Czcrpc65-42-0142 11:41-0500Body .89 kgJalyn Vidal DO Work Phone: [facility] [employer] Xubzrp67-15-9554 11:41-0500Diastolic blood azojoqgt14 mm[Hg]Jalyn Vidal DO Work Phone: [facility] [employer] Qsrypq51-75-1763 11:41-0500Heart rate 68 /minSradha Vidal DO Work Phone: [facility] [employer] Jjdmok11-66-7254 11:41-8434ArV3% (BldA) [Mass fraction]98 %Jalyn Vidal DO Work Phone: [facility]01-18-2024 11:41-0500Systolic blood mm[Hg]Jalyn Vidal DO Work Phone: [facility]12-28-2023 11:00-0500Body mass index (BMI) [Ratio]67.17 kg/e6Exzakpedoug Moise [facility]12-28-2023 11:00-0500Body sejooq612.25 kgShannon Jose Maria [facility]03-28-2022 15:29-0400Body htbixy258.9 cmDuarte Sosa MD Work Phone: [facility] HospitalDxfbuy71-56-9261 15:29-0400Body mass index (BMI) [Ratio]51.51 kg/h1JfvcqwrDuarte Sosa MD Work Phone: [facility] HospitalKqspku47-75-7947 15:29-0400Body mjjfjvkiogc87.01 [degF]Duarte Sosa MD Work Phone: 1(218)095-[facility]1[place] [address]Sautnq77-52-7040 15:29-0400Body xigjop093.65 kg Duarte Sosa MD Work Phone: [facility] HospitalKwueip94-39-1428 15:29-0400Diastolic blood wpjegitw79 mm[Hg]Duarte Sosa MD Work Phone: [facility] HospitalPqavzj44-35-8097 15:29-0400Heart rate62 /min Duarte Sosa MD Work Phone: 1(842)202-[facility]2[place] [address]Miabvp82-85-4268 15:29-0400Respiratory rate14 /minDuarte Sosa MD Work Phone: [place] [address]Myqrba14-10-0529 15:29-1881KtW6% (BldA) [Mass fraction]100 %Duarte Sosa MD Work Phone: [place] [address]Jrzpuj61-21-4430 15:29-0400Systolic blood irlozhdq075 mm[Hg]Duarte Sosa MD Work Phone: [place] [address]Kqccdl24-58-0162 15:11-0400Diastolic blood ywjgjejv67 mm[Hg]Gunjan Valentino DO Work Phone: 1(548)831-[address] [place] [address]-24-2022 15:11-0400Heart rate77 /min Gunjan Valentino DO Work Phone: 1(197)[facility] [place] [address]-24-2022 15:11-0400Systolic blood qpvcakvk651 mm[Hg]Gunjan Valentino DO Work Phone: 1(618)505-[address] [place] [address]-24-2022 04:14-0400Body fmpadtrgwut67.1 [degF]Gunjan Valentino DO Work Phone: 1(778)574-[address] [place] [address]-24-2022 04:00-0400Respiratory rate20 /minGunjan Valentino DO Work Phone: 1(580)116-[address] [place] [address]-24-2022 04:00-7769AzM3% (BldA) [Mass fraction]95 %Gunjan Valentino DO Work Phone: 1(521)818-[address] [place] [address]-24-2022 00:00-0400Body msfrey789.9 cm Gunjan Valentino DO Work Phone: 1(915)014-[address] [place] [address]-24-2022 00:00-0400Body mass index (BMI) [Ratio]52.72 kg/z1DpploclrGunjan Valentino DO Work Phone: 1(218)[facility] [place] [address]-24-2022 00:00-0400Body amutgl315.55 kg Gunjan Valentino DO Work Phone: 1(805)[facility] [place], [place] [address]503-22-2022 09:58-0400Diastolic blood lgjodsyj10 mm[Hg]Marielos Torres MD Work Phone: 1(030)977-[address] [place] [address]-22-2022 09:58-0400Heart rate84 /min Marielos Torres MD Work Phone: 1(568)[facility] [place] [address]-22-2022 09:58-0400Respiratory rate18 /minMarielos Torres MD Work Phone: 1(437)447-[address] [place] [address]-22-2022 09:58-0400Systolic blood pyhsisnn496 mm[Hg]Marielos Torres MD Work Phone: 1(685)[facility] [place] [address]-22-2022 08:01-0400Body pbwoyykqynu59.9 [degF]Marielos Torres MD Work Phone: 1(723)[address] [place] [address]-21-2022 08:00-0652TbF2% (BldA) [Mass fraction]95 %Marielos Torres MD Work Phone: 1(202)[address] [place] [address]-19-2022 06:15-0400Body riokzt225.9 cm Marielos Torres MD Work Phone: 1(243)[address] [place] [address]-19-2022 06:15-0400Body mass index (BMI) [Ratio]54.8 kg/w5Oozmzplxoneal Torres MD Work Phone: 1(712)[address] [place] [address]-19-2022 06:15-0400Body hjhosk591.54 kg Marielos Torres MD Work Phone: 1(254)[address] [place] [address]-19-2022 01:00-0400Diastolic blood trsujbbd16 mm[Hg]Tonia Lani DO Work Phone: 1(201)[address] [place] [address]-19-2022 01:00-0400Heart rate73 /min Tonia Lani DO Work Phone: 1(809)[address] [place] [address]-19-2022 01:00-0400Respiratory rate28 /minMatthew Lani DO Work Phone: 1(806)[address] [place] [address]-19-2022 01:00-1279AbZ0% (BldA) [Mass fraction]96 %Tonia Lani DO Work Phone: 1(158)[address] [place] [address]-19-2022 01:00-0400Systolic blood usazkund951 mm[Hg]Tonia Lani DO Work Phone: 1(660)[address] [place] [address]-18-2022 18:54-0400Body .9 cm Tonia Lani DO Work Phone: 1(731)[address] [place] [address]-18-2022 18:54-0400Body mass index (BMI) [Ratio]54.8 kg/m8Frocrxf Lani DO Work Phone: 1(749)[address] [place] [address]-18-2022 18:54-0400Body qewjylmtdvk98.2 [degF]Tonia Garibay DO Work Phone: [facility] HospitalSgjbhy40-10-7154 18:54-0400Body ykxtoy639.54 kg Tonia Garibay DO Work Phone: [facility] Encounters Encounter DateEncounter TypeCare ProviderFacilityStart: 06-25-2025 End: 88-92-6748Kosyrf OnlyAmy Edwige LPNMaternal- Medicine at [facility]Comment on above:History of gestational diabetes in prior , currently in second trimester (PrimaryDx); History of prediabetes; History of gestational diabetes in prior , currently Start: 06-24-2025 End: 78-00-1565Wjgzckwg flow Jennifer BURTON Work Phone: [facility] Nichole OBGYNComment on above:Gallstones and inflammation of gallbladder without obstruction (Primary Dx); Second trimester ([facility] 23 weeks gestation of ([facility]); History of diet controlled gestational diabetes mellitus (GDM); Preeclampsia in period ([facility]); History of pulmonary embolism; Primary hypertension; Diabetes mellitus screeningStart: 06-24-2025 End: 82-74-1815irivqxwdydRYG RAMEYNot AvailableStart: 06-23-2025 End: 07-91-7198mvczpdwqfcSDIK [facility] HospitalStart: 06-22-2025 End: 82-30-2833Cgohyfseo encounterAmy Edwige LPNMaternal- Medicine at [facility]art: 06-17-2025 End: 32-98-7439Syakwaguh encounterAmy Edwige LPNMaternal- Medicine at [facility]: 06-17-2025 End: 78-47-1442Msmminadc department patient visitRIDDHI [facility] Hospitaltart: 06-10-2025 End: 69-02-4935Txjiyc flowsheetNed Spicer NP Work Phone: [facility] Nichole OBGYNStart: 06-10-2025 End: 69-89-8298Hqtzsn flowsheetWayneconstantin Spicer NP Work Phone: noMS Varela OBGYNStart: 06-10-2025 End: 82-45-5435Evwdogvqu Result EncounterNed Spicer NP Work Phone: no External Department UnsolicitedStart: 06-10-2025 End: 20-43-2353Xbiaigg encounter procedureNed Spicer NP Work Phone: no HealthcareStart: 06-10-2025 End: 43-41-9999Tioasist flow sheetNed Spicer NP Work Phone: noMS Varela OBGYNComment on above:21 weeks gestation of ([facility]); Well woman exam; Second trimester ([facility]); Screen for STD (sexually transmitted disease); Well woman exam with routine gynecological exam; Diabetes mellitus screening; Iron deficiency anemia, unspecified iron deficiency anemia typeStart: 06-10-2025 End: 82-27-7736eejyhmxzdfCQAXMGVM EBERLYNot AvailableStart: 06-08-2025 End: 16-98-6768ObogxgSamantha Pratt MD Work Phone: [phone]-Jmyqp Medicine at [facility] Comment on above:History of Bonnie-en-Y gastric bypass; Postsurgical malabsorption; Malnutrition following gastrointestinal surgery; Folate deficiency; Iron deficiencyStart: 05-29-2025 End: 64-13-0797Lsbvmm consultation new/estab patient 80 Kelley Pratt MD Work Phone: [phone]-Epfcx Medicine at [facility] Comment on above:History of maternal pulmonary embolus (Primary Dx); 20 weeks gestation of ; Chronic hypertension affecting ; History of pre-eclampsia in prior , currently in second trimester; History of gestational diabetes in prior , currently in second trimester; History of prediabetes; Bariatric surgery status complicating , second trimester; Severe obesity due to excess calories affecting , antepartum ([facility] Obstructive sleep apnea; History of gestational diabetes in prior , currently ; Depression affecting ; Anxiety disorder affecting , antepartumStart: 05-29-2025 End: 93-16-5698Qwhcgx OnlyAmy Edwige LPNMaternal- Medicine at [facility]edoComment on above:20 weeks gestation of (Primary Dx); Chronic hypertension affecting ; History of pre-eclampsia in prior , currently in second trimester; History of gestational diabetes in prior , currently in second trimester; History of prediabetes; Bariatric surgery status complicating , second trimester; Severe obesity due to excess calories affecting , antepartum ([facility]); History of maternal pulmonary embolus; Obstructive sleep apnea; History of gestational diabetes in prior , currently ; Depression affecting ; Anxiety disorder affecting , antepartumStart: 05-28-2025 End: 47-76-9742Erfbg Arthur Pratt MD Work Phone: [phone]-Txetl Medicine at [facility] Start: 05-25-2025 End: 39-91-1783PctwmtImzw F Bower MD Work Phone: [facility] NaplesComment on above:Anxiety Start: 05-14-2025 End: 33-18-8268Vdlgkwf encounter procedureNed Spicer NP Work Phone: [facility] Work Phone: Start: 05-14-2025 End: 24-98-9778Ihwvnflc flow sheetNed Spicer NP Work Phone: [facility] Nichole OBGYNComment on above:Well woman exam with routine gynecological exam; Screening, , for anatomic survey ([facility]); Second trimester ([facility]); 17 weeks gestation of ([facility]); Vaginal discharge; STD exposureStart: 05-14-2025 End: 62-70-5618bkcmlxieoyBOHOBTXJ EBERLYNot AvailableStart: 04-20-2025 End: 77-44-5014Zqfcuc flowsheetBin Morales DO Work Phone: [facility] Nichole OBGYNStart: 04-20-2025 End: 17-93-0903Kwksvr flowsheetCorey Carmen DO Work Phone: NO Nichole OBGYNStart: 04-20-2025 End: 10-20-0669Hiylodrq flow sheetCorey Carmen DO Work Phone: NO [facility] OBGYNComment on above:Second trimester ([facility] 14 weeks gestation of ([facility]); Primary hypertension ; H/O gastric bypass; History of diet controlled gestational diabetes mellitus (GDM); Diabetes mellitus screeningStart: 04-20-2025 End: 37-06-1413hfvkxwnxklFWOEV FAZIONot AvailableStart: 03-25-2025 End: 52-84-4782Zpgagwnpq Result EncounterGeneric External Data ProviderNOMS External Department UnsolicitedStart: 03-25-2025 End: 25-90-3386Fwjedwlva Result EncounterGeneric External Data ProviderNOMS External Department UnsolicitedStart: 03-20-2025 End: 39-78-8028Xuvahl outpatient visit 5 minutesFazio Nurse Noms Bcp ObNOMS BCP OBComment on above:GA: 27k9kYmcqz: 03-20-2025 End: 44-40-1352txustzqtcpMNNG BOWERNot AvailableStart: 01-01-2025 End: 79-75-8746Ingkbr outpatient visit 25 minutesTonia Manzo MD Work Phone: [facility]-BariatricComment on above:History of Bonnie-en-Y gastric bypass (Primary Dx); Postsurgical malabsorption; Malnutrition following gastrointestinal surgery; History of anemia; B12 deficiencyStart: 01-01-2025 End: 61-08-3382nyhpgkrbakICKOQEHW M HOITENGAProMedica Kent HospitalStart: 01-01-2025 End: 12-38-3499ceypoufdunPGBJPE L OSWALDMiddletown Hospital HospitalStart: 12-15-2024 End: 69-74-0009Tcvzgmgio department patient visitRIDDHI PLATAProMedica Fostoria Community Hospitaltart: 10-30-2024 End: 07-56-0745NcippbSamantha Stallworth RN Work Phone: [facility]-BariatricComment on above:Malnutrition following gastrointestinal surgery (Primary Dx); Postsurgical malabsorption; H/O gastric bypass; History of anemiaStart: 10-10-2024 End: 23-06-9680Obfzxw outpatient visit 15 Ed Plata MD Work Phone: NOQF FNR FMComment on above:Influenza A (Primary Dx); Fever, unspecified fever causeStart: 10-10-2024 End: 36-81-5964vikohygyxpOZOJ F BOWERNot AvailableStart: 10-10-2024 End: 79-66-9189Lnbpod Gallo Plata MD Work Phone: [facility] FNR FMStart: 10-10-2024 End: 91-10-9108Hkwccv Gallo Plata MD Work Phone: [facility] FNR FMStart: 08-25-2024 End: 70-93-7254Tjdbna Gallo Plata MD Work Phone: [facility] FNR FMStart: 08-25-2024 End: 07-62-9051Jsstgm Gallo Plata MD Work Phone: [facility] FNR FMStart: 08-25-2024 End: 12-88-0983Edmvny outpatient visit 15 Ed Plata MD Work Phone: [facility] FNR FMComment on above:Non-recurrent acute serous otitis media of left ear (Primary Dx); Bariatric surgery status; Vitamin D deficiency; Iron deficiency anemia, unspecified iron deficiency anemia typeStart: 08-25-2024 End: 82-24-1903nxftupevxxISKJ F BOWERNot AvailableStart: 06-12-2024 End: 47-11-5959Yywmnz outpatient visit 15 Ed Plata MD Work Phone: [facility] FNR FMComment on above:Acute cystitis with hematuria (Primary Dx); DysuriaStart: 06-12-2024 End: 33-48-7128Oisvoo Gallo Plata MD Work Phone: noms FNR FMStart: 06-12-2024 End: 87-97-2021Hmelul Gallo Plata MD Work Phone: noms FNR FMStart: 06-04-2024 End: 03-96-6639FgpsjsqklzQot [facility] P07IueYytgbq Physicians General Surgery-BariatricStart: 06-04-2024 End: 77-68-5326Nrnyirnwl to same day surgery Fabiana Manzo MD Work Phone: [facility] DieticiansComment on above: Dietary counseling and surveillance (Primary Dx); Malnutrition following gastrointestinal surgery; Postsurgical malabsorption; H/O gastric bypassMalnutrition following gastrointestinal surgery (Primary Dx); Postsurgical malabsorption; H/O gastric bypass; B12 deficiencyStart: 05-01-2024 End: 41-88-0314Uejmajlvb to same day surgery [facility] Systemro[facility] Moise [facility] DieticiansComment on above:Dietary counseling and surveillance (Primary Dx); Morbid obesity ([facility]); Malnutrition following gastrointestinal surgery; Postsurgical malabsorptionStart: 05-01-2024 End: 60-11-7096Jbhyhk follow up visit related to original pxTonia Manzo MD Work Phone: [facility] General Surgery-BariatricComment on above:LUCIANO on CPAP (Primary Dx); H/O gastric bypass; Postoperative malabsorption; Malnutrition following gastrointestinal surgeryStart: 04-27-2024 End: 56-09-0802Zhzyiytvi encounterCreedmoor Psychiatric Centerjody Alonso [facility] Call Center Comment on above:bloody mocusStart: 04-23-2024 End: 63-18-1457Gmbokcbgym and management of inpatientTonia Manzo MD Work Phone: [phone] AcuteComment on above:Class 3 severe obesity due to excess calories with serious comorbidity and body mass index (BMI) of60.0 to 69.9 in adult ([facility]) (Primary Dx); History of pulmonary embolism; Acute post-operative painStart: 04-17-2024 End: 15-27-5408Xzirltdox encounterNilam Stallworth RN Work Phone: [facility] Physicians General Surgery-BariatricStart: 04-15-2024 End: 84-20-5546Kexujm outpatient visit 5 minutesWlc [facility] S[facility] NurseProMedica Physicians General Surgery-BariatricComment on above:Morbid obesity with BMI of 60.0-69.9, adult (CMS-HCC) (Primary Dx)Start: 04-15-2024 End: 79-61-0473Svmtsp OnlyNilam Stallworth RN Work Phone: [facility] Physicians General Surgery-BariatricComment on above:Preop testing (Primary Dx)Pre-op testing (Primary Dx)Start: 04-15-2024 End: 43-17-4766Uaqsfqi encounter statusNilam Stallworth RN Work Phone: p[facility] Work Phone: start: 03-27-2024 End: 52-13-5122Nvlgzg outpatient visit 10 minutesMattblair Manzo MD Work Phone: [facility] Physicians General Surgery-BariatricComment on above:PONV (postoperative nausea and vomiting) (Primary Dx); Unable to assess patient's smoking status within the last 12 months; Constipation, unspecified constipation type; Vitamin D deficiency; Chronic RUQ painStart: 03-17-2024 End: 76-05-3872Bimdju consultation new/estab patient 40 Sylwia Bhandari MD Work Phone: [facility] Physicians CardiologyComment on above:Preop cardiovascular exam (Primary Dx)Start: 03-17-2024 End: 09-02-4983Ncunfgy encounter Bryn Bhandari MD Work Phone: [facility] HospitalAOI Medical SystemStart: 03-12-2024 End: 44-64-7267Uqtbdyxkw encounterAnne Ruiz CMASouthview Medical Center Physicians CardiologyStart: 03-06-2024 End: 04-56-1911Nbskmzrcmtss consultation with Pema Moise [facility] DieticiansComment on above:Pre-bariatric surgery nutrition evaluation (Primary Dx); Morbid obesity ([facility])Start: 02-07-2024 End: 44-92-7568Nwuokmtdovrd consultation with [facility] DieticiansComment on above:Pre-bariatric surgery nutrition evaluation (Primary Dx); Morbid obesity ([facility])Start: 01-17-2024 End: 81-08-6427Jkuufa OnlyIsa [facility] Physicians General Surgery-BariatricComment on above:Preop testing (Primary Dx)Start: 01-17-2024 End: 23-50-5434Ldszdeu encounter [facility] Start: 01-02-2024 End: 94-50-4786Ugmqrxtus to same day surgery [facility] DieticiansComment on above:Pre-bariatric surgery nutrition evaluation (Primary Dx); Morbid obesity ([facility])Start: 48-43-3114Mrlukzt encounter procedureMaalejo DaveyRangely District Hospital - Food ClinicStart: 12-05-2023 End: 35-15-7693Xmzjhgksz to same day surgery [facility] DieticiansComment on above:Pre-bariatric surgery nutrition evaluation (Primary Dx); Morbid obesity ([facility])Start: 11-08-2023 End: 01-21-4127Rmvywvlyp to same day surgery [facility] DieticiansComment on above:Pre-bariatric surgery nutrition evaluation (Primary Dx); Morbid obesity ([facility])Start: 10-10-2023 End: 77-26-3740Wjkdul outpatient new 30 minutesPatel Alcaraz MD Work Phone: [facility] Physicians CardiologyComment on above:Preop testing (Primary Dx); LUCIANO on CPAP; History of pulmonary embolism; Class 2 severe obesity due to excess calories with serious comorbidity in adult, unspecified BMI ([facility]); Essential hypertensionStart: 10-10-2023 End: 00-97-9578Fcnmjdl encounter statusPatel Alcaraz MD Work Phone: [facility] Hospitaltart: 28-15-0160Dvbkntimp encounterJetim Ruiz [facility] HospitalMed[facility] Physicians CardiologyStart: 10-09-2023 End: 17-83-1695Wdviqkrup to same day surgery [facility] DieticiansComment on above:Pre-bariatric surgery nutrition evaluation (Primary Dx); Morbid obesity ([facility])Start: 09-27-2023 End: 22-08-2443ybuwxcwadkCJISMMEncompass Health [facility] Ambulatory PPGStart: 09-27-2023 End: 76-54-9568Xnnryp outpatient visit 10 minutesJalyn Arredondo [facility] DO Work Phone: [facility] Pulmonary/Sleep MedicineComment on above:Mild intermittent asthma, unspecified whether complicated (Primary Dx); LUCIANO on CPAPStart: 85-29-2617Lfwyq abstractingScanning Provider ExternalBarre City HospitalMedica Physicians CardiologyStart: 09-06-2023 End: 50-57-8900Sgwwqftas to same day surgery [facility] DieticiansComment on above:Pre-bariatric surgery nutrition evaluation (Primary Dx); Morbid obesity ([facility])Start: 09-06-2023 End: 13-63-1113iokrffbokzDfffdhtUvalde Memorial Hospital Dieticians Start: 11-03-2022 End: 44-22-0939wwzzmtbrreDA BIN CARMEN .Facility:Q9Incjr: 96-85-7747Shdbugwgz for other preprocedural examinationDR BIN CARMEN .[facility] Hamiltontart: 16-91-7150Vxfvnjlms for preprocedural cardiovascular examinationDR BIN CARMEN . [facility]Start: 10-24-2022 End: 64-30-9587lmdcywyylxMD BIN CARMEN .Facility:O1Qyeld: 10-24-2022 End: 47-06-4276Nggqnoslu for other preprocedural examinationDR BIN CARMEN . Facility:M3Hlcwg: 09-26-2022 End: 47-10-7110tutwggngvtLO ASHLEY Veracility:I1Mwpys: 87-84-0817fvpmhmgvqaRZ BIN CARMEN .Facility:S9Uashx: 24-48-6136lieppdnswvQW BIN CARMEN .Facility:H1 Start: 07-01-2022 End: 66-82-4220yjsrnxiszrWA ASHLEY Weir TriHealthcility:O8Tffru: 06-27-2022 End: 35-07-7336bgeozuywwnVS BIN CARMEN .Facility:B6Tysen: 12-05-2021 End: 18-68-5116Hcnztutai department patient visitJEJUDY SOSAAdams County Regional Medical Centertart: 12-05-2021 End: 91-82-5499Tlydbyofs department patient visitDuarte Sosa MD Work Phone: [facility] EDComment on above:Shortness of breath (Primary Dx)Start: 11-30-2021 End: 42-48-1779Rpmxutgttv and management of inpatientZAINULABEDIN WAQARMercy Island Hospitaltart: 11-30-2021 End: 65-22-6755Ajkedulloo and management of inpatientAngeline M Chelsy DO Work Phone: stAZ CVICUComment on above:Acute pulmonary embolism, unspecified pulmonary embolism type, unspecified whether acute cor pulmonale present (HCC) (Primary Dx)Start: 11-26-2021 End: 48-87-0108Ppzuemsdji and management of inpatientCHRISTOPHER LAMONTE LUKENTEMeVencor Hospitaltart: 11-26-2021 End: 05-95-0496Fgtcgcvtdt and management of inpatientCooneal Torres MD Work Phone: stVZ 7A Labor & DeliveryComment on above:Preeclampsia in period (Primary Dx)Start: 11-25-2021 End: 40-32-0115Oycsdtemu department patient visitMATTHEW SYVERSONAdams County Regional Medical Centertart: 11-25-2021 End: 08-31-6357Smwkvbxds department patient visitMatthew Lani DO Work Phone: [facility] EDComment on above:Preeclampsia in period (Primary Dx)Start: 46-64-2063jfrydlzprvCI BIN CARMEN . Facility:H4Iwjze: 11-20-2021 End: 85-58-3192Iuglzbfsvg and management of inpatientDR CLARKE SCHUMACHER . Facility:G8Ulvgg: 11-17-2021 End: 18-13-8113lfobwseyyvEM BIN MORALES .Facility:H4Bqlmu: 01-06-2019 End: 10-60-6959Eyhddct encounter procedureDEFAULT PHYSICIANFacility:[facility] Procedures DateProcedureProcedure DetailPerforming ClinicianStart: 22-15-9171Qpxhu dip stick/tablet rgnt non-auto w/o micrscpKristina Dannielle [employer] Work Phone: Start: 60-97-4475POH,APTIMA HPV,AGE GDLNGeneric External Data ProviderStart: 43-87-5195Evlurzrzhbw observation [Identifier] in Cervix by Cyto stainWinter BURTON Work Phone: Start: 28-81-4930Hqynu dip stick/tablet rgnt non-auto w/o micrscpKristina Dannielle [employer] Work Phone: Start: 16-73-7591Sbatn dip stick/tablet rgnt non-auto w/o micrscpCorey Carmen DO Work Phone: Start: 31-29-8882Ilmlxosr Zaina Pratt MD Work Phone: Start: 72-28-2558Vghek metabolic panel calcium total Bin R Carmen DO Work Phone: Start: 86-51-4830LQR W Auto Differential panel - Blood Bin R Carmen DO Work Phone: Start: 97-19-8441Cwst scrn 1+ class nonchromoNot In System Ref ProvStart: 98-63-5263Cismatlib c antibodyNot In System Ref ProvStart: 83-58-6923XVK 1&2 AB/AG SCREEN (P24 AG)Not In System Ref ProvStart: 03-25-2025 Iaad ia hepatitis b surface antigenNot In System Ref ProvStart: 03-25-2025 SYPHILIS TOTAL(UNKNOWN SYPHILIS STATUS)Not In System Ref ProvStart: 03-25-2025 TYPE AND SCREENNot In System Ref ProvStart: 16-09-9737GOK TESTCorey Carmen DO Work Phone: Start: 77-50-6525Nbroo dip stick/tablet rgnt non-auto w/o micrscpCorey Carmen DO Work Phone: Start: 27-18-0447Selpnb-up visitFollow-upKATHLEEN Maria Elena HOITENGAStart: 92-09-9327LHOGPZ COVID-19/FLUMarmalena Plata MD Work Phone: Start: 81-61-7170Xmycv dip stick/tablet rgnt non-auto w/o micrscpMary Jonas Plata MD Work Phone: Start: 26-96-1074NOH REFERRAL TO NUTRITION SERVICES Tonia Manzo MD Work Phone: Start: 73-02-9233Magagaiyuz bloodMattblair Manzo MD Work Phone: Start: 04-23-2024 End: 54-12-4255Cuzg gstr rstcv px w/byp bonnie-en-y limb <150 cmMattblair Manzo MD Work Phone: Start: 89-36-2272Eixrt test visual color cmprsn methsMattblair Manzo MD Work Phone: Start: 90-41-6341Qlgtv depression screening assessment Shayy Alonso RMAStart: 98-93-7565Jxrms metabolic panel calcium totalOmar Rosa GUERRERO Work Phone: start: 44-11-4902Akv routine ecg w/least 12 lds w/i&r Cr Venegas MD Work Phone: Start: 38-19-7634Kqy routine ecg w/least 12 lds w/i&r Theodora Early MD Work Phone: Start: 92-85-8277Wlk routine ecg w/least 12 lds w/i&r Tonia BURTON-CStart: 70-23-3458Zjzsu metabolic panel calcium totalMatthew Isidro BURTON-CStart: 82-99-5829Yqebspvlll exam chest single viewMatthew Isidro BURTON-CStart: 23-28-4008Vlgd tthrc r-t 2d w/wom-mode compl spec&colr dNichole Dave [employer] OPERATOR - [employer]YOR [employer]ER Work Phone: Start: 30-89-9991NURS-XA, UNFRACTIONATED HEPARINJamie Sergio [employer]MING [employer] OPERATOR - [employer] CON[employer]YOR T[employer]ER Work Phone: Start: 12-01-2021 End: 08-96-7039Woqfr of magnesiumShirley [facility] FORMING MILL OPERATOR - [employer] CONVEYOR TENDER Work Phone: Start: 54-32-4908Ycuoq panelShirWomen & Infants Hospital of [facility] FORMING MILL OPERATOR - [employer] CONVEYOR TENDER Work Phone: Start: 94-88-1412Bsdil count complete automatedWhitesburg Arh Hospital FORMING MILL OPERATOR - [employer] CONVEYOR TENDER Work Phone: Start: 89-42-0195Iw thorax w/contrast materialEric Clement FORMING MILL OPERATOR - [employer] CONVEYOR TENDER Work Phone: Start: 15-71-9367Xyyzw of troponin quantitativeEric Clement [employer]MING MILL OPERATOR - [employer]ER Work Phone: Start: 94-68-3031Vommwudhdr microscopic onlyEric Clement [employer]MING MILL OPERATOR - [employer]YOR T[employer]ER Work Phone: Start: 93-60-8578Bxuff dip stick/tablet rgnt auto w/o microscopyEric Clement FORMING MILL OPERATOR - [employer] CONVEYOR TENDER Work Phone: Start: 50-80-9714Hhaulaosbm exam chest single viewEric Clement FORMING MILL OPERATOR - [employer] CONVEYOR TENDER Work Phone: Start: 11-30-2021 End: 51-21-7421Xxuzohp dehydrogenase ldhEric Clement FORMING MILL OPERATOR - [employer]YOR T[employer]ER Work Phone: Start: 19-63-4555Nai routine ecg w/least 12 lds w/i&r Bandar Clement FORMING MILL OPERATOR - [employer] CON[employer]YOR TENDER Work Phone: Start: 59-88-9115Lf thorax w/contrast materialKrista Lizeth Milton DO Work Phone: Start: 40-06-1746Oypeewbmiaxlr metabolic panelKrista R Yoan DO Work Phone: Start: 57-27-8397HJDCY-19, RAPIDMatthew Lani DO Work Phone: Start: 11-25-2021 End: 32-16-6333Nuqbj metabolic panel calcium totalMatthew Lani DO Work Phone: Start: 33-15-6224Cxlhbpz function panelMatthew Lani DO Work Phone: Start: 35-50-9763Aaecycuyoe microscopic onlyMatthew Lani DO Work Phone: Start: 31-94-4319Zifph dip stick/tablet rgnt auto w/o microscopyMatthew Lani DO Work Phone: Start: 42-47-2526Vtdsufos of Products of Conception, External ApproachDR BIN MORALES .Start: 67-73-5834Enkmgwbr of Amniotic Fluid, Therapeutic from Products of Conception, Via Natural or Artificial OpeningDR BIN MORALES .Start: 16-02-0175Zrgazqwneohl of Other Hormone into Peripheral Vein, Percutaneous ApproachDR BIN MORALES .History of gastrointestinal tract bypassHistory of Bonnie-en-Y gastric bypassTonia Manzo MD Work Phone: History of gastrointestinal tract bypassHistory of Bonnie-en-Y gastric bypassEster Pratt MD Work Phone: Plan of Treatment DateCare ActivityDetailAuthorStart: 65-88-9236Ucftlahse for malignant neoplasm of cervixNOMS HealthcareStart: 78-98-4030Alzvjqgxd for malignant neoplasm of cervixNOMS HealthcareStart: 64-62-7643Nftzj BMI ScreeningAdult BMI Screening [facility] SystemStart: 20-17-0803Cigxqkw ScreeningTobacco Screening [facility] Hospitaltart: 96-83-6497Ywcsh BMI ScreeningAdult BMI Screening [facility] Hospitaltart: 43-11-5776Kmcel BMI ScreeningAdult BMI Screening [facility]tart: 33-34-1667Yzgdshd ScreeningTobacco Screening [facility]tart: 00-76-9638Uiunu BMI ScreeningAdult BMI Screening [facility]tart: 40-18-5030Iszoyqb ScreeningTobacco Screening [facility] Hospitaltart: 07-09-2025 End: 42-70-3180Npxmmly encounter bsbxspfwe82/30/2025 11:30 AM EDT Office Visit Maternal- Medicine at [facility] [address] [place] [address] Sana Lima MD [address] [place], [place] [phone] (Work) [facility]: 07-09-2025 End: 32-95-9536Tgojucr encounter mmmuemypo85/30/2025 9:45 AM EDT Appointment [facility] [address] [place] [address] [phone] County Hospital US ImagingStart: 07-08-2025 End: 57-21-0270Tgxyhao encounter amaqaemmt33/29/2025 8:30 AM EDT Routine [facility] Nichole TAYLOR [address] [place], [place] Winter English PA [address] [place] [address] CHEVY ESCOTOGYNStart: 06-24-2025 End: 37-14-6933SND W Auto Differential panel - BloodCBC and differential Lab Routine Diabetes mellitus screening Expected: 06/24/2025 (Approximate), Expires: 06/24/2026[facility] Work Phone: comment on above:Expected: 06/24/2025 (Approximate), Expires: 06/24/2026Start: 06-10-2025 End: 28-23-3627XBW W Auto Differential panel - BloodCBC and differential Lab Routine 21 weeks gestation of ([facility]) Second trimester ([facility]) Expected: 06/10/2025 (Approximate), Expires: 06/10/2026[facility] Comment on above:Expected: 06/10/2025 (Approximate), Expires: 06/10/2026Start: 06-10-2025 End: 22-88-1359Vbthwdhjes A1c/Hemoglobin.total in BloodHemoglobin A1c Lab Routine 21 weeks gestation of ([facility]) Second trimester ([facility]) Diabetes mellitus screening Expected: 06/10/2025 (Approximate), Expires: 06/10/2026N[facility]S HealthcareComment on above:Expected: 06/10/2025 (Approximate), Expires: 06/10/2026Start: 06-10-2025 End: 76-31-9208Ikyydzf encounter procedureNOHI Nichole OBGYNComment on above: ArrivedStart: 24-12-2375Biesq BMI ScreeningAdult BMI ScreeningProRegency Hospital Cleveland Westtart: 05-29-2025 End: 57-85-3469W[place] MFM with or without consultUS MFM with or without consult Imaging Routine 20 weeks gestation of Chronic hypertensionaffecting History of pre-eclampsia in prior , currently in second trimester History of gestational diabetes in prior , currently in second trimester History of prediabetes Bariatric surgery status complicating , second trimester Severe obesity due to excess calories affecting , antepartum ([facility]) History of maternal pulmonary embolus Obstructive sleep apnea History of gestational diabetes in prior , currently Depression affecting Anxiety disorder affecting , antepartum Expected: 05/29/2025, Expires: 05/29/2026[facility] Work Phone: comment on above:Expected: 05/29/2025, Expires: 05/29/2026Start: 05-29-2025 End: 73-35-3152Yspyzhl encounter procedureProMediMercy Health [facility] Hospital US ImagingStart: 05-14-2025 End: 18-90-8630Xwdzx fetoprotein, maternalAlpha fetoprotein, maternal Lab Routine Second trimester ([facility]) 17 weeks gestation of ([facility]) Expected: 05/14/2025 (Approximate), Expires: 11/11/2025[facility] Work Phone: comment on above:Expected: 05/14/2025 (Approximate), Expires: 11/11/2025Start: 05-14-2025 End: 33-85-0928Vxqcxrl encounter mzzxunqhp71/04/2025 8:30 AM EDT Routine NOMEl STRETEN [address] [place], [id number] Ned Spicer, [employer] [address] [place] [address] N[facility] Nichole OBGYNStart: 41-78-0127Ddiqzwhud vaccinationProLakehealth [facility] SystemStart: 64-48-9016Cylqc BMI Follow Up PlanAdult BMI Follow Up PlanUniversity Hospitals Conne[facility] SystemStart: 05-01-2025 Adult BMI ScreeningAdult BMI ScreeningSouthview Medical Center Health SystemStart: 05-01-2025 Tobacco ScreeningTobacco ScreeningSouthview Medical Center Health SystemStart: 45-87-3536Ybbkf BMI ScreeningAdult BMI ScreeningSouthview Medical Center Health SystemStart: 04-23-2025 Depression ScreeningDepression ScreeningSouthview Medical Center Health SystemStart: 04-23-2025 Tobacco ScreeningTobacco ScreeningSouthview Medical Center Health SystemStart: 04-23-2025 End: 05-71-3554Smbtegv encounter tnusefrak95/14/2025 8:30 AM EDT Office Visit [facility] [address] [place] [phone] Tonia Manzo MD [address] [address] [facility] [place] [address] [facility] General Surgery-BariatricStart: 04-20-2025 End: 08-73-2992Glfgaknesum of glucose 1 hour after glucose challenge for glucose tolerance testGlucose tolerance, 1 hour Lab Routine Diabetes mellitus screening Expected: 04/20/2025 (Approximate), Expires: 04/20/2026[facility] Work Phone: comment on above:Expected: 04/20/2025 (Approximate), Expires: 04/20/2026Start: 04-20-2025 End: 36-97-8710Skvgbrw encounter procedureNOCOMMUNITY HOSPITAL OF SAN BERNARDINO OBComment on above:Arrived Start: 16-88-2332Kyxvn BMI ScreeningAdult BMI ScreeningUniversity Hospitals [facility] System Start: 20-31-0739Gsanfpc ScreeningTobacco ScreeningGood Hope Hospitaltart: 04-10-2025 End: 73-67-1087Ayxylrk [Mass/volume] in Serum or PlasmaCalcium Lab Routine History of Bonnie-en-Y gastric bypass Postsurgical malabsorption Malnutrition foll owing gastrointestinal surgery Expected: 04/10/2025 (Approximate), Expires: 04/10/2026ProMount Carmel Health SystemNavTech Work Phone: Comment on above:Expected: 04/10/2025 (Approximate), Expires: 04/10/2026Start: 04-10-2025 End: 39-23-3673FJM W Auto Differential panel - BloodCBC auto differential Lab Routine History of Bonnie-en-Y gastric bypass Postsurgical malabsorption Mal nutrition following gastrointestinal surgery Expected: 04/10/2025 (Approximate), Expires: 04/10/2026ProLakehealth Beachwood Medical Center SystemComment on above:Expected: 04/10/2025 (Approximate), Expires: 04/10/2026Start: 04-10-2025 End: 19-50-0519AtqulcChristo romano S Lab Routine History of Bonnie-en-Y gastric bypass Postsurgical malabsorption Malnutrition following gastrointestinal surgery Expected: 04/10/2025 (Approximate), Expires: 04/10/2026ProLakehealth Beachwood Medical Center SystemComment on above:Expected: 04/10/2025 (Approximate), Expires: 04/10/2026 Start: 04-10-2025 End: 98-86-6110Tzcbpsumlywtdh vitamin b-12Vitamin B12 Lab Routine History of Bonnie-en-Y gastric bypass Postsurgical malabsorption Malnutritionfollowing gastrointestinal surgery Expected: 04/10/2025 (Approximate), Expires: 04/10/2026 [facility] CenterComment on above:Expected: 04/10/2025 (Approximate), Expires: 04/10/2026Start: 04-10-2025 End: 93-83-9402Qrsoxsgs [Mass/volume] in Serum or PlasmaFerritin Lab Routine History of Bonnie-en-Y gastric bypass Postsurgical malabsorption Malnutrition fol lowing gastrointestinal surgery History of anemia Expected: 04/10/2025 (Approximate), Expires: 04/10/2026[facility] CenterComment on above: Expected: 04/10/2025 (Approximate), Expires: 04/10/2026Start: 04-10-2025 End: 69-72-6748KjqybzUdpkzx Lab Routine History of Bonnie-en-Y gastric bypass Postsurgical malabsorption Malnutrition following gastrointestinal surgery Expected: 04/10/2025 (Approximate), Expires: 04/10/2026[facility] Comment on above:Expected: 04/10/2025 (Approximate), Expires: 04/10/2026Start: 04-10-2025 End: 58-24-7974Fbyi and TIBCIron and TIBC Lab Routine History of Bonnie-en-Y gastric bypass Postsurgical malabsorption Malnutrition following gastrointestinal surgery History of anemia Expected: 04/10/2025 (Approximate), Expires:04/10/2026[facility] CenterComment on above:Expected: 04/10/2025 (Approximate), Expires: 04/10/2026Start: 04-10-2025 End: 77-02-8169Thmmu panelLiver panel Lab Routine History of Bonnie-en-Y gastric bypass Postsurgical malabsorption Malnutritionfollowing gastrointestinal surgery Expected: 04/10/2025 (Approximate), Expires: 04/10/2026[facility] Comment on above:Expected: 04/10/2025 (Approximate), Expires: 04/10/2026Start: 04-10-2025 End: 37-44-4209Ffoyiobdigs Hormone, intactParathyroid Hormone, intact Lab Routine History of Bonnie-en-Y gastric bypass Postsurgical malabsorption Malnutrition following gastrointestinal surgery Expected: 04/10/2025 (Approximate), Expires: 04/10/2026[facility] CenterComment on above: Expected: 04/10/2025 (Approximate), Expires: 04/10/2026Start: 04-10-2025 End: 59-68-5810Xyqmngh (Vitamin B1), WBThiamin (Vitamin B1), WB Lab Routine History of Bonnie-en-Y gastric bypass Postsurgical malabsorptionMalnutrition following gastrointestinal surgery Expected: 04/10/2025 (Approximate), Expires: 04/10/2026[facility] CenterComment on above:Expected: 04/10/2025 (Approximate), Expires: 04/10/2026Start: 04-10-2025 End: 34-16-4911Xrblfhd A (Retinol)Vitamin A (Retinol) Lab Routine History of Bonnie-en-Y gastric bypass Postsurgical malabsorption Malnutrition following gastrointestinal surgery Expected: 04/10/2025 (Approximate), Expires: 04/10/2026 [facility] CenterComment on above:Expected: 04/10/2025 (Approximate), Expires: 04/10/2026Start: 04-10-2025 End: 20-79-9302Bwobqsp D 25 hydroxyVitamin D 25 hydroxy Lab Routine History of Bonnie-en-Y gastric bypass Postsurgical malabsorption Malnutrition following gastrointestinal surgery Expected: 04/10/2025 (Approximate), Expires: 04/10/2026 [facility] CenterComment on above:Expected: 04/10/2025 (Approximate), Expires: 04/10/2026Start: 04-10-2025 End: 91-63-0277Sijl, SerumZinc, Serum Lab Routine History of Bonnie-en-Y gastric bypass Postsurgical malabsorption Malnutritionfollowing gastrointestinal surgery Expected: 04/10/2025 (Approximate), Expires: 04/10/2026[facility] Comment on above:Expected: 04/10/2025 (Approximate), Expires: 04/10/2026Start: 03-20-2025 End: 97-68-5788LQZ/RhABO/Rh Lab Routine Missed menses , unspecified gestational age ([facility]) Expected: 03/20/2025 (Approximate), Expires: 03/20/2026[facility] HealthcareComment on above:Expected: 03/20/2025 (Approximate), Expires: 03/20/2026Start: 03-20-2025 End: 44-31-7307Umgqp type and Indirect antibody screen panel - BloodType and screen Lab Routine Missed menses , unspecified gestational age ([facility]) Expected: 03/20/2025 (Approximate), Expires: 03/20/2026[facility] Work Phone: comment on above:Expected: 03/20/2025 (Approximate), Expires: 03/20/2026Start: 03-20-2025 End: 24-80-1049Glxan of abuse panel - Urine by Screen methodRapid drug screen, urine Lab Routine , unspecified gestational age ([facility]) Encounter for supervision of normal first in first trimester ([facility]) Expected: 03/20/2025 (Approximate), Expires: 03/20/2026[facility] HealthcareComment on above: Expected: 03/20/2025 (Approximate), Expires: 03/20/2026Start: 58-36-2138Ewoco BMI ScreeningAdult BMI ScreeningProLakehealth Beachwood Medical Center SystemStart: 55-03-1210Ebztaud ScreeningTobacco ScreeningUniversity Hospitals Conneaut Medical Center SystemStart: 19-82-5844Pszgaethm vaccinationInfluenza Vaccine (#1)[facility] HealthcareComment on above:Postponed from 05/11/2024 (Patient Refused)Start: 34-26-8375Pzacm BMI ScreeningAdult BMI ScreeningProNoland Hospital Tuscaloosa Health SystemStart: 59-25-2825Uatgf BMI ScreeningAdult BMI ScreeningProMedica Health SystemStart: 62-87-5378Oshqx BMI ScreeningAdult BMI ScreeningProMedica Health SystemStart: 52-44-9047Ypdpfuk ScreeningTobacco ScreeningProNoland Hospital Tuscaloosa Health SystemStart: 76-36-2404Ylnvk BMI ScreeningAdult BMI ScreeningProMount Carmel Health Systemca Health SystemStart: 11-13-2024 End: 14-45-8264Gsulbvs encounter yishxummm26/06/2025 11:00 AM EST Office Visit [facility] [address] [facility] [place] [phone] Tonia Manzo MD [address] [facility] [address] [place] [address] May Dunlap, FORMING MILL OPERATOR-CHIP BIN CONVEYOR TENDER [address] [place] [address] [facility] General Surgery-BariatricStart: 88-21-9517Ynubm BMI ScreeningAdult BMI ScreeningProMount Carmel Health SystemFliplifetart: 10-30-2024 End: 74-26-6482KAK W Auto Differential panel - BloodCBC auto differential Lab Routine Malnutrition following gastrointestinal surgery Postsurgical malab sorption H/O gastric bypass History of anemia Expected: 10/30/2024, Expires: 10/30/2025[facility] Hospital[facility] Work Phone: Comment on above:Expected: 10/30/2024, Expires: 10/30/2025Start: 10-30-2024 End: 88-41-2083Lwbbbyguipexsr vitamin b-12Vitamin B12 Lab Routine Malnutrition following gastrointestinal surgery Postsurgical malabsorption H/O gastric bypass History of anemia Expected: 10/30/2024, Expires: 10/30/2025[facility] HospitalFieldView SolutionsComment on above:Expected: 10/30/2024, Expires: 10/30/2025Start: 10-30-2024 End: 91-91-7204Nmgglrfj [Mass/volume] in Serum or PlasmaFerritin Lab Routine Malnutrition following gastrointestinal surgery Postsurgical malabsorption H/O gastric bypass History of anemia Expected: 10/30/2024, Expires: 10/30/2025 [facility]CentrePathComment on above:Expected: 10/30/2024, Expires: 10/30/2025Start: 10-30-2024 End: 02-39-6330AulvlcDmivcy Lab Routine Malnutrition following gastrointestinal surgery Postsurgical malabsorption H/O gastric bypass History of anemia Expected: 10/30/2024, Expires: 10/30/2025[facility] CenterComment on above:Expected: 10/30/2024, Expires: 10/30/2025Start: 10-30-2024 End: 61-68-3816Tbuf and TIBCIron and TIBC Lab Routine Malnutrition following gastrointestinal surgery Postsurgical malabsorption H/O gastric bypass History of anemia Expected: 10/30/2024, Expires: 10/30/2025[facility] Comment on above:Expected: 10/30/2024, Expires: 10/30/2025Start: 10-30-2024 End: 38-96-8321Hutwi panelLiver panel Lab Routine Malnutrition following gastrointestinal surgery Postsurgical malabsorption H/O gastric bypass History of anemia Expected: 10/30/2024, Expires: 10/30/2025[facility] Comment on above:Expected: 10/30/2024, Expires: 10/30/2025Start: 10-30-2024 End: 23-84-2581Sjlaute (Vitamin B1), WBThiamin (Vitamin B1), WB Lab Routine Malnutrition following gastrointestinal surgery Postsurgical malabsorption H/O gastric bypass History of anemia Expected: 10/30/2024, Expires: 10/30/2025 [facility] CenterComment on above:Expected: 10/30/2024, Expires: 10/30/2025Start: 10-30-2024 End: 81-93-4013Npvaiix D 25 hydroxyVitamin D 25 hydroxy Lab Routine Malnutrition following gastrointestinal surgery Postsurgical malabsorption H/O gastric bypass History of anemia Expected: 10/30/2024, Expires: 10/30/2025[facility] CenterComment on above:Expected: 10/30/2024, Expires: 10/30/2025Start: 59-80-3425Rpjqnup ScreeningTobacco ScreeningGood Hope Hospitaltart: 10-10-2024 End: 80-81-7766Qdkqnri encounter ltpdifywf17/31/2025 3:40 PM EST Office Visit [facility] [address] [place] [address] Riddhi Plata MD [address] [place] [address] [facility] FMComment on above:ArrivedStart: 47-83-3799Iotbm BMI Screening Adult BMI ScreeningUniversity Hospitals Conneaut Medical Center SystemStart: 92-68-0467Rjyhsnt Screening Tobacco ScreeningProNoland Hospital Tuscaloosa Health SystemStart: 04-11-8069Oieol BMI Screening Adult BMI ScreeningProLakehealth Beachwood Medical Center SystemStart: 10-15-0465Pwivehb Screening Tobacco ScreeningUniversity Hospitals Conneaut Medical Center SystemStart: 27-09-7751Ogqgd BMI Screening Adult BMI ScreeningUniversity Hospitals Conneaut Medical Center SystemStart: 08-25-2024 End: 934914-tasqjadnczdyug D3 [Mass/volume] in Serum or PlasmaVitamin D 25 hydroxy Lab Routine Bariatric surgery status Vitamin D deficiency Expected: 08/25/2024(Approximate), Expires: 08/25/2025[facility] HealthcareComment on above: Expected: 08/25/2024 (Approximate), Expires: 08/25/2025Start: 08-25-2024 End: 13-45-2179QDQ W Auto Differential panel - BloodCBC and differential Lab Routine Bariatric surgery status Vitamin D deficiency Iron deficiency anemia, unspecified iron deficiency anemia type Expected: 08/25/2024 (Approximate), Expires: 08/25/2025[facility] HealthcareComment on above:Expected: 08/25/2024 (Approximate), Expires: 08/25/2025Start: 08-25-2024 End: 23-73-2380Pgwyapzaq (Vitamin B12) [Mass/volume] in Serum or PlasmaVitamin B12 Lab Routine Bariatric surgery status Vitamin D deficiency Iron deficiency anemia, unspecified iron deficiency anemia type Expected: 08/25/2024 (Approximate), Expires: 08/25/2025[facility] Healthcare Work Phone: Comment on above:Expected: 08/25/2024 (Approximate), Expires: 08/25/2025Start: 08-25-2024 End: 06-50-3883Sfqm + transferrin + TIBCIron + transferrin + TIBC Lab Routine Bariatric surgery status Vitamin D deficiency Iron deficiencyanemia, unspecified iron deficiency anemia type Expected: 08/25/2024 (Approximate), Expires: 08/25/2025[facility] HospitalComment on above:Expected: 08/25/2024 (Approximate), Expires: 08/25/2025Start: 08-25-2024 End: 85-69-9691Vawvful encounter gynzxspqm06/16/2024 8:20 AM EST Office Visit [facility] [address] [place] [address] Riddhi Plata MD [address] [place], [place] [phone] [facility] HOSPITALLizeth Comment on above:ArrivedStart: 56-22-4861Cnufg BMI Screening Adult BMI ScreeningGood Hope Hospitaltart: 07-31-2024 End: 94-95-6990LHU W Auto Differential panel - BloodCBC auto differential Lab Routine H/O gastric bypass Postoperative malabsorption Malnutrition following gastrointestinal surgery Expected: 07/31/2024 (Approximate), Expires: 04/30/2025 [facility] Work Phone: Comment on above:Expected: 07/31/2024 (Approximate), Expires: 04/30/2025Start: 07-31-2024 End: 84-95-6205Tocgqvxqrqfzaz vitamin b-12Vitamin B12 Lab Routine H/O gastric bypass Postoperative malabsorption Malnutrition following gastrointestinal surgery Expected: 07/31/2024 (Approximate), Expires: 04/30/2025ProLakehealth [facility] SystemComment on above:Expected: 07/31/2024 (Approximate), Expires: 04/30/2025 Start: 07-31-2024 End: 00-97-0903IftrfeUtrrmm Lab Routine H/O gastric bypass Postoperative malabsorption Malnutrition following gastrointestinal surgery Expected: 07/31/2024 (Approximate), Expires: 04/30/2025ProL[facility] SystemComment on above:Expected: 07/31/2024 (Approximate), Expires: 04/30/2025Start: 07-31-2024 End: 65-47-5364Iodl [Mass/volume] in Serum or PlasmaIron Lab Routine H/O gastric bypass Postoperative malabsorption Malnutrition following gastrointestinal surgery Expected: 07/31/2024 (Approximate), Expires: 04/30/2025[facility] CenterComment on above:Expected: 07/31/2024 (Approximate), Expires: 04/30/2025 Start: 07-31-2024 End: 41-81-4710Fxqry panelLiver panel Lab Routine H/O gastric bypass Postoperative malabsorption Malnutrition following gastrointestinal surgery Expected: 07/31/2024 (Approximate), Expires: 04/30/2025[facility] System Comment on above:Expected: 07/31/2024 (Approximate), Expires: 04/30/2025Start: 07-31-2024 End: 08-69-0083Azghcys (Vitamin B1), WBThiamin (Vitamin B1), WB Lab Routine H/O gastric bypass Postoperative malabsorption Malnutrition following gastrointestinal surgery Expected: 07/31/2024 (Approximate), Expires: 04/30/2025 [facility] CenterComment on above:Expected: 07/31/2024 (Approximate), Expires: 04/30/2025Start: 07-31-2024 End: 97-98-5504Giwhwtw D 25 hydroxyVitamin D 25 hydroxy Lab Routine H/O gastric bypass Postoperative malabsorption Malnutrition following gastrointestinal surgery Expected: 07/31/2024 (Approximate), Expires: 04/30/2025[facility] CenterComment on above:Expected: 07/31/2024 (Approximate), Expires: 04/30/2025 Start: 07-24-2024 End: 82-92-1687Tvlmdmm encounter ygopobbuw02/14/2024 11:30 AM EST Office Visit [facility] [address] [place] [phone] Tonia Manzo MD [address] [address] May Dunlap, FORMING MILL OPERATOR-CHIP BIN CONVEYOR TENDER [address] [place], [place] [phone] [facility] Surgery-BariatricStart: 34-22-7413Zwbeuxx ScreeningTobacco ScreeningGood Hope Hospitaltart: 06-12-2024 End: 36-67-6121Wxvnhvyr identified in Urine by CultureUrine culture (clean catch) Microbiology Routine Dysuria Expected: 06/12/2024 (Approximate), Expires: 06/12/2025[facility] Healthcare Work Phone: Comment on above:Expected: 06/12/2024 (Approximate), Expires: 06/12/2025Start: 06-12-2024 End: 29-33-7415Bntucckybd complete panel - UrineUrinalysis with reflex microscopic (clean catch) Lab Routine Dysuria Expected: 06/12/2024 (Approxima te), Expires: 06/12/2025[facility] HealthcareComment on above:Expected: 06/12/2024 (Approximate), Expires: 06/12/2025Start: 06-04-2024 End: 68-64-0913mkyiwefqws54/25/2024 10:30 AM EDT Support Visit [facility] [address] [place] [address] [phone] Tonia Manzo MD [address] [phone] Jenny Moise RDRangely [facility] Start: 06-02-2024 End: 79-85-5367rmexvzrorh25/23/2024 1:00 PM EDT Support Visit [facility] [address] [place] [address] [phone] Tonia Manzo MD [address] [phone] Belem Pleitez LDRangely District Hospital DieticiansStart: 33-18-2196Ezuabckyj [facility] HealthcareStart: 05-01-2024 End: 03-45-6252Bozecoj encounter zcaiekoav06/22/2024 1:30 PM EDT Office Visit [facility] General Surgery-Bariatric [address] [place] [address] Tonia Manzo MD [address] [facility] [place] [address] [facility] General Surgery-BariatricStart: 05-01-2024 End: 63-70-7545lwcfaqyjvn54/22/2024 1:00 PM EDT Support Visit [facility] [address] [place] [address] Jenny Moise RDProMount Carmel Health Systemca [facility] DieticiansStart: 04-23-2024 End: 60-84-6695Hzqgyhsuz to same day surgery tlwdum4404/23/2024 9:30 AM EDT - 04/23/2024 11:30 AM EDT Surgery [facility] Surgery [address] [place] [phone] Tonia Manzo MD [address] [facility], [address] [address] DAVINCI BYPASS GASTRIC BONNIE EN Y [68047 (CPT )][facility] SurgeryComment on above:DAVINCI BYPASS GASTRIC BONNIE EN Y [58260 (CPT )]Start: 04-23-2024 End: 08-59-1726Tsex gstr rstcv px w/byp bonnie-en-y limb <150 cmDAVINCI BYPASS GASTRIC BONNIE EN Y MORBID OBESITY/HYPERTENSION 04/23/2024 9:30 AM EDTTOLEDO SURGERYStart: 48-58-1983Fjxmdsqyas hospital visit by kmrzfzcwo93/14/2024 9:30 AM EDT Hospital Encounter [facility] Surgery [address] [place] [phone] Tonia Manzo MD [address] [facility] [address] [place], [place] [phone] (Work) [facility] - SurgeryStart: 04-15-2024 End: 57-99-8357VB Chest PA and LateralProMedica Work Phone: Comment on above:Expected: 04/15/2024 (Approximate), Expires: 04/15/2025Start: 03-27-2024 End: 13-60-4738Pwaytiwf and Metabolites, Random, UrineNicotine and Metabolites, Random, Urine Lab Routine Unable to assess patient's smoking status within the last 12 months Expected: 03/27/2024, Expires: 2025[facility] Work Phone: Comment on above:Expected: 03/27/2024, Expires: 2025Start: 03-27-2024 End: 64-88-8688MS Abdomen limitedUltrasound abdomen limited Imaging Routine Chronic RUQ pain Expected: 03/27/2024, Expires: 03/27/2025[facility] SystemComment on above:Expected: 03/27/2024, Expires: 03/27/2025Start: 03-27-2024 End: 90-92-2719Weciign encounter qavkxokya38/18/2024 1:30 PM EDT Office Visit [facility] General Surgery-Bariatric [address] [place] [address] Tonia Manzo MD [address] [address] [facility] General Surgery-BariatricStart: 10-27-5009Ljngn BMI Follow Up PlanAdult BMI Follow Up PlanUniversity Hospitals Conneaut Medical Center SystemStart: 03-17-2024 End: 99-30-3823Ydckvkkaifynqd vitamin b-12Vitamin B12 Lab Routine Preop testing Expected: 03/17/2024, Expires: 01/16/2025[facility] SystemComment on above:Expected: 03/17/2024, Expires: 01/16/2025Start: 03-17-2024 End: 08-43-4945NqurudYgbksb Lab Routine Preop testing Expected: 03/17/2024, Expires: 01/16/2025[facility] CenterComment on above:Expected: 03/17/2024, Expires: 01/16/2025Start: 03-17-2024 End: 01-16-2025H Pylori Breath AdultH Pylori Breath Adult Lab Routine Preop testing Expected: 03/17/2024, Expires: 01/16/2025[facility] CenterComment on above:Expected: 03/17/2024, Expires: 01/16/2025Start: 03-17-2024 End: 69-01-8734Ucspaeddfl A1c/Hemoglobin.total in BloodHemoglobin A1c Lab Routine Preop testing Expected: 03/17/2024, Expires: 01/16/2025[facility] Work Phone: Comment on above:Expected: 03/17/2024, Expires: 01/16/2025Start: 03-17-2024 End: 62-42-1398Mhdy and TIBCIron and TIBC Lab Routine Preop testing Expected: 03/17/2024, Expires: 01/16/2025[facility] CenterComment on above:Expected: 03/17/2024, Expires: 01/16/2025Start: 03-17-2024 End: 58-20-9530Xxxjq 1996 panel - Serum or PlasmaLipid profile Lab Routine Preop testing Expected: 03/17/2024, Expires: 01/16/2025[facility] CenterComment on above:Expected: 03/17/2024, Expires: 01/16/2025Start: 03-17-2024 End: 97-91-3123Ujmyvusmkut [Units/volume] in Serum or PlasmaTSH Lab Routine Preop testing Expected: 03/17/2024, Expires: 01/16/2025[facility] Comment on above:Expected: 03/17/2024, Expires: 01/16/2025Start: 03-17-2024 End: 80-78-5538Qqyvlzj D 25 hydroxyVitamin D 25 hydroxy Lab Routine Preop testing Expected: 03/17/2024, Expires: 01/16/2025[facility] SystemComment on above:Expected: 03/17/2024, Expires: 01/16/2025Start: 03-17-2024 End: 13-96-3658Zuzwdbu encounter procedureProNoland Hospital Tuscaloosa Physicians CardiologyStart: 03-06-2024 End: 98-05-0781Niqhshxdcfnh consultation with myaerqq7003/06/2024 1:30 PM EDT Telemedicine [facility] [address] [place] [address], [place] [phone] Jenny Moise RDRangely [facility] Start: 02-07-2024 End: 92-61-2146lxhwqjaxye79/30/2024 1:30 PM EDT Support Visit [facility] [address] [place] [phone] Jenny Moise RDRangely [facility] Hospital DieticiansStart: 01-02-2024 End: 86-73-2806ikqvehgwjn41/24/2024 12:30 PM EDT Support Visit [facility] [address] [place] [phone] Jenny Moise RDRangely District Hospital DieticiansStart: 12-12-2023 End: 97-05-2021Ccjhjoq encounter sxiblypfr53/03/2024 1:00 PM EDT Appointment [facility] - Radiology [address] [place] [address] UxkQccnuvACMC [facility] - RadiologyStart: 12-05-2023 End: 56-71-3674sdyxuyfzfj60/27/2024 1:30 PM EDT Support Visit [facility] [address] [place] [phone] Jenny Moise RDRangely District Hospital DieticiansStart: 11-21-2023 End: 96-65-0043Nsongpy encounter lxvjnfqla97/13/2024 1:00 PM EDT Appointment [facility] - Radiology [address] [place] [address] Tonia Manzo MD [address] [facility] [address] [place] [address] [facility] - RadiologyStart: 11-08-2023 End: 33-03-1312wskqpuomkh79/29/2024 11:30 AM EST Support Visit [facility] [address] [place] [phone] Jenny Moise RDRangely District Hospital DieticiansStart: 10-10-2023 End: 27-66-7397Atcifrl encounter kbbtqfbku80/31/2024 8:15 AM EST Office Visit [facility] [address] [facility] [address] [place] [address] Patel Alcaraz MD [address] [place], [place] [phone] Theodora Early MD [address] [place] [address] [facility] CardiologyStart: 10-09-2023 End: 12-20-4906fugrbvvluv76/30/2024 11:00 AM EST Support Visit [facility] [address] [place] [phone] Jenny Moise RDRangely District Hospital DieticiansStart: 09-27-2023 End: 20-50-5814Kwaajmg encounter pjolmlfyw58/18/2024 11:45 AM EST Office Visit [facility] [address] [facility] [place] [address] [place] [address] [place] [address] [facility] Pulmonary/Sleep MedicineStart: 12-70-7025Awwslassg vaccinationInfluenza Vaccine [facility] SystemStart: 00-70-3200Dgxmffrtlx measurementCreatinine monitoringOhiohealth Hardin Memorial HospitalStart: 26-27-8052Lftyrmzgl monitoringPotassium monitoring [facility] HospitalStart: 04-52-2963Mxlujgubit measurementCreatinine monitoringOhiohealth Hardin Memorial HospitalStart: 90-15-7046Dvbllesbv monitoringPotassium monitoringOhiohealth Hardin Memorial Hospital Start: 44-37-5870Desdnufhdh MonitoringDepression MonitoringOhiohealth Hardin Memorial HospitalStart: 51-47-6843Gmhrjswklh measurementCreatinine [facility] HospitalStart: 63-92-9718Wptnkikma monitoringPotassium monitoringOhiohealth Hardin Memorial HospitalStart: 12-09-2021 End: 11-09-6255Oiofkjh encounter axmhwhsvp60/01/2022 Office Visit Obstetrics and Gynecology Brandie Moore, [address] [place] [address] [facility] [place]fieldStart: 11-30-2021 End: 97-51-3494Ffhjuhw encounter qhhrzmjet03/23/2022 Office Visit Family Medicine Rochelle Louis MD [address] [facility] [address] [place] [address] [facility] CenterStart: 11-30-2021 End: 61-59-6500Qfhmncwnuhgr consultation with mhibttk7911/30/2021 Telemedicine Family Medicine Rochelle Louis MD [address] [facility] [address] [place] [address] [facility] Start: 68-02-9123Rgczxlzvc vaccinationFlu vaccine (#1)[facility] HospitalStart: 18-39-0931FBfV,Tdap and Td Vaccines (7 - Td or Tdap)DTaP,Tdap and Td Vaccines (7 - Td or Tdap)[facility] SystemStart: 48-51-7443Ceebwrtbk for malignant neoplasm of cervixPap smearOhiohealth Hardin Memorial HospitalStart: 53-34-7872IPzZ/Tdap/Td vaccine (1 - Tdap)DTaP/Tdap/Td vaccine (1 - Tdap)[facility] HospitalStart: 70-70-6025UCZ screening HIV screenOhiohealth Hardin Memorial HospitalStart: 58-33-4077Bhwnksiehx MonitoringDepression MonitoringOhiohealth Hardin Memorial HospitalStart: 98-19-9333Knvarhasmd ScreenDepression ScreenSelect Medical Cleveland Clinic Rehabilitation Hospital, Edwin Shawart: 59-86-6859Zqhijjaibc ScreeningDepression ScreeningGood Hope Hospitaltart: 98-03-5660AVAUK-19 Vaccine (1)COVID-19 Vaccine (1)[facility] Start: 51-48-4732Gzjoxqbpx vaccine (1 of 2 - 2-dose childhood series)Varicella vaccine (1 of 2 - 2-dose childhood series)[facility] HospitalStart: 23-91-9061Tdbstdpil C screeningHepatitis C screenOhiohealth Hardin Memorial Hospital End: 79-76-2215Shzn thrombin 3 functAnti thrombin 3 funct Lab Routine 20 weeks gestation of History of maternal pulmonary embolus 1 Occurrences starting 05/29/2025 until 05/29/2026[facility] CenterComment on above:1 Occurrences starting 05/29/2025 until 6Anti thrombin 3 functAnti thrombin 3 funct Lab Routine 20 weeks gestation of History of maternal pulmonary embolus 05/29/2025 1:48 PM [facility] End: 06-71-3422Qekj-Xa, Unfractionated HeparinAnti-Xa, Unfractionated Heparin Lab Timed Every 6 Hours (Lab) for 7 Days starting 12/01/2021 until 12/07/2021 [facility] [employer] Phone: comment on above:Every 6 Hours (Lab) for 7 Days starting 12/01/2021 until 12/07/2021acteria identified in Urine by CultureUrine culture Microbiology Routine Missed menses Ordered: 03/20/2025[facility] Comment on above:Ordered: 5CBC panel - Blood by Automated countCBC Lab Routine Every Other Day until discontinued starting 12/02/2021[facility] [employer] Phone: comment on above:Every Other Day until discontinued starting 2CBC W Auto Differential panel - BloodCBC and differential Lab Routine Missed menses , unspecified gestational age ([facility]) Ordered: 03/20/2025[facility] HospitalComment on above:Ordered: 03/20/2025HLAMYDIA TRACHOMATIS (GENITO/STI)CHLAMYDIA TRACHOMATIS (GENITO/STI) Lab Routine Screen for STD (sexually transmitted disease) Ordered: 06/10/2025[facility] HospitalComment on above:Ordered: 06/10/2025 End: 50-36-7986Hleiuxbvcumir metabolic 2000 panel - Serum or PlasmaComprehensive metabolic panel Lab Routine 20 weeks gestation of Chronic hypertension affecting 1 Occurrences starting 05/29/2025 until 05/29/2026[facility] SystemComment on above:1 Occurrences starting 05/29/2025 until 05/29/2026omprehensive metabolic 1999 panel - Serum or Plasma Comprehensive metabolic panel Lab Routine 20 weeks gestation of Chronic hypertension affecting 05/29/2025 1:48 PM [facility] End: 29-27-8777Megbxwiukimaqp vitamin b-12Vitamin B12 Lab Routine 20 weeks gestation of Bariatric surgery status complicating , second trimester 1 Occurrences starting 05/29/2025 until 05/29/2026[facility] CenterComment on above:1 Occurrences starting 05/29/2025 until 05/29/2026 Cyanocobalamin vitamin b-12Vitamin B12 Lab Routine 20 weeks gestation of Bariatric surgery status complicating , second trimester 05/29/2025 1:48 PM [facility] Cervical or vaginal smear or scraping studyPap Smear Pathology and Cytology Routine Well woman exam with routine gynecological exam Ordered: 06/10/2025[facility] HospitalComment on above: Ordered: 06/10/2025 End: 79-62-0562ITJ 12 leadECG 12 lead ECG Routine 20 weeks gestation of Chronic hypertension affecting 1 Occurrences starting 05/29/2025 until 05/29/2026[employer] Phone: comment on above:1 Occurrences starting 05/29/2025 until 05/29/2026EKG 12 leadEKG 12 lead ECG Routine As Needed until discontinued starting 11/30/2021[facility] Work Phone: comment on above:As Needed until discontinued starting 11/30/2021EKG 12 LeadEKG 12 Lead ECG STAT 11/30/2021 7:35 PM [employer] Phone: ekg 12 LeadEKG 12 Lead ECG STAT 12/05/2021 4:00 PM [facility] [employer] End: 73-29-8361Ensmxxpz [Mass/volume] in Serum or PlasmaFerritin Lab Routine 20 weeks gestation of Bariatric surgery status complicating , second trimester 1 Occurrences starting 05/29/2025 until 05/29/2026[facility] HospitalSterio.me SystemComment on above:1 Occurrences starting 05/29/2025 until 05/29/2026 Ferritin [Mass/volume] in Serum or PlasmaFerritin Lab Routine 20 weeks gestation of Bariatric surgery status complicating , second trimester 05/29/2025 1:48 PM [facility] End: 96-36-2669SechkeEqgohs Lab Routine 20 weeks gestation of Bariatric surgery status complicating ,second trimester 1 Occurrences starting 05/29/2025 until 05/29/2026[facility]AO[facility] SystemComment on above:1 Occurrences starting 05/29/2025 until 05/29/2026FolateFolate Lab Routine 20 weeks gestation of Bariatric surgery status complicating , second trimester 05/29/2025 1:48 PM [facility]PharmaGlucose [Mass/volume] in Serum or PlasmaPOCT Glucose Point of Care Testing Routine 4X Daily (AC & HS) until discontinued starting 12/01/2021[facility] Centerjslyhl Phone: comment on above:4X Daily (AC & HS) until discontinued starting 12/01/2021Hemoglobin A1c/Hemoglobin.total in BloodHemoglobin A1c Lab Routine Missed menses , unspecified gestational age ([facility]) Ordered: 03/20/2025[facility] [employer] SystemsComment on above:Ordered: 03/20/2025Hepatitis B virus surface Ag [Presence] in Serum or Plasma by ImmunoassayHepatitis B surface antigen Lab Routine Missed menses , unspecified gestational age ([facility]) Ordered: 03/20/2025[facility] HealthcareComment on above:Ordered: 03/20/2025 Hepatitis C virus Ab [Presence] in Serum or Plasma by ImmunoassayHepatitis C antibody Lab Routine Missed menses , unspecified gestational age ([facility]) Ordered: 03/20/2025[facility] HealthcareComment on above:Ordered: 03/20/2025 HIV-1/HIV-2 antigen/antibody combination immunoassayHIV-1 and HIV-2 antibodies Lab Routine Missed menses , unspecified gestational age ([facility]) Ordered: 03/20/2025[facility] HealthcareComment on above:Ordered: 03/20/2025Human papilloma virus DNA [Presence] in Unspecified specimen by Probe with amplificationHPV DNA probe, amplified Microbiology Routine Well woman exam with routine gynecological exam Ordered: 06/10/2025[facility] HealthcareComment on above: Ordered: 06/10/2025 End: 43-21-9178Dhholuoninkq pulse oximetryPulse Oximetry Spot Check Respiratory Care Routine One Time for 1 Occurrences starting 12/01/2021 until 12/01/2021 [email or web address] Phone: comment on above:One Time for 1 Occurrences starting 12/01/2021 until 12/01/2021 End: 23-89-9202Vlvt and TIBCIron and TIBC Lab Routine 20 weeks gestation of Bariatric surgery status complicating , second trimester 1 Occurrences starting 05/29/2025 until 05/29/2026[facility] CenterComment on above:1 Occurrences starting 05/29/2025 until 05/29/2026Iron and TIBCIron and TIBC Lab Routine 20 weeks gestation of Bariatric surgery status complicating , second trimester 05/29/2025 1:48 PM [facility] End: 41-69-2331GZRLHN Lab Routine 20 weeks gestation of Chronic hypertension affecting 1 Occurrences starting 05/29/2025 until 05/29/2026[facility] SystemComment on above:1 Occurrences starting 05/29/2025 until 05/29/2026LDHLDH Lab Routine 20 weeks gestation of Chronic hypertension affecting 51:48 PM [facility] End: 48-91-3663Xkhdgxppcwe peptide B [Mass/volume] in BloodB-type natriuretic peptide Lab Routine 20 weeks gestation of Chronic hypertension affecting 1 Occurrences starting 05/29/2025 until 05/29/2026[facility] CenterComment on above:1 Occurrences starting 05/29/2025 until 05/29/2026 Natriuretic peptide B [Mass/volume] in BloodB-type natriuretic peptide Lab Routine 20 weeks gestation of Chronic hypertension affecting 05/29/2025 1:48 PM [facility] [employer]iPharmaNeisseria gonorrhoeae DNA [Presence] in Unspecified specimen by MYNOR with probe detectionNeisseria gonorrhea DNA probe, direct Lab Routine Screen for STD (sexually transmitted disease) Ordered: 06/10/2025[facility] HospitalComment on above:Ordered: 06/10/2025 Nicotine and Metabolites panel [Mass/volume] - UrineNicotine and Metabolites, Random, Urine Lab Routine Unable to assess patient's smoking status within the last 12 months 03/27/2024 6:08 PM [facility]armaOxygen therapy [Minimum Data Set]Initiate Oxygen Therapy Protocol Respiratory Care Routine As Needed until discontinued starting 11/30/2021[facility] CenterPulmonx Work Phone: comment on above:As Needed until discontinued starting 11/30/2021OCT EKGPOCT EKG ECG Routine Preop testing 10/10/2023[employer] Work Phone: POCT EKGPOCT EKG ECG Routine Preop cardiovascular exam 03/17/2024[employer] Work Phone: End: 58-91-5874Zzoiywu C activityProtein C activity Lab Routine 20 weeks gestation of History of maternal pulmonary embolus 1 Occurrences starting 05/29/2025 until 05/29/2026[facility] HospitalAO[facility] Medical [facility] AlmaComment on above:1 Occurrences starting 05/29/2025 until 05/29/2026Protein C activityProtein C activity Lab Routine 20 weeks gestation of History of maternal pulmonary embolus 05/29/2025 1:48 PM [employer] End: 46-60-8727Ejqiffv creat ratioProtein creat ratio Lab Routine 20 weeks gestation of Chronic hypertension affecting 1 Occurrences starting 05/29/2025 until 05/29/2026[facility] HospitalSterio.me [facility] AlmaComment on above:1 Occurrences starting 05/29/2025 until 05/29/2026Protein creat ratioProtein creat ratio Lab Routine 20 weeks gestation of Chronic hypertension affecting 05/29/2025 1:48 PM [facility] [employer]iPharmaProtein Electrophoresis, UrineProtein Electrophoresis, Urine Lab STAT 11/30/2021 9:20 PM [employer] Work Phone: End: 23-38-7827Whgprgc S activityProtein S activity Lab Routine 20 weeks gestation of History of maternal pulmonary embolus 1 Occurrences starting 05/29/2025 until 05/29/2026[facility] HospitalSendUsComment on above:1 Occurrences starting 05/29/2025 until 05/29/2026Protein S activityProtein S activity Lab Routine 20 weeks gestation of History of maternal pulmonary embolus 05/29/2025 1:48 PM [facility] [employer]armaReagin Ab [Presence] in Serum by RPRRPR Lab Routine Missed menses , unspecified gestational age ([facility]) Ordered: 03/20/2025[facility] [employer] SystemsComment on above: Ordered: 03/20/2025Rubella antibody, IgGRubella antibody, IgG Lab Routine Missed menses , unspecified gestational age ([facility]) Ordered: 03/20/2025[facility] [employer] SystemsComment on above:Ordered: 03/20/2025SURESWAB(R) ADVANCED VAGINITIS PLUS, TMASURESWAB(R) ADVANCED VAGINITIS PLUS, TMA Pathology and Cytology Routine Screen for STD (sexually transmitted disease) Ordered: 06/10/2025[facility] [employer] Work Phone: comment on above:Ordered: 06/10/2025 End: 60-24-9632Pcxqhzx (Vitamin B1), WBThiamin (Vitamin B1), WB Lab Routine 20 weeks gestation of Bariatric surgery status complicating , second trimester 1 Occurrences starting 05/29/2025 until 05/29/2026[facility] HospitalSterio.me [facility] AlmaComment on above:1 Occurrences starting 05/29/2025 until 05/29/2026 Thiamin (Vitamin B1), WBThiamin (Vitamin B1), WB Lab Routine 20 weeks gestation of Bariatric surgery status complicating , second trimester 05/29/2025 1:48 PM [facility] [employer] End: 46-85-0841Alaoc [Mass/volume] in Serum or PlasmaUric acid Lab Routine 20 weeks gestation of Chronic hypertension affecting 1 Occ urrences starting 05/29/2025 until 05/29/2026[facility] [employer] [facility] AlmaComment on above:1 Occurrences starting 05/29/2025 until 05/29/2026Urate [Mass/volume] in Serum or PlasmaUric acid Lab Routine 20 weeks gestation of Chronic hypertension affecting 05/29/2025 1:48 PM [facility] End: 13-12-8926Jlfdhkq D 25 hydroxyVitamin D 25 hydroxy Lab Routine 20 weeks gestation of Bariatric surgery status complicating , second trimester 1 Occurrences starting 05/29/2025 until 05/29/2026[facility] [employer] [facility] AlmaComment on above:1 Occurrences starting 05/29/2025 until 05/29/2026Vitamin D 25 hydroxyVitamin D 25 hydroxy Lab Routine 20 weeks gestation of Bariatric surgery status complicating , second trimester 05/29/2025 1:48 PM [facility] End: 16-13-3511Unps, SerumZinc, Serum Lab Routine 20 weeks gestation of Bariatric surgery status complicating , second trimester 1 Occurrences starting 05/29/2025 until 05/29/2026[facility] [employer] [facility] AlmaComment on above:1 Occurrences starting 05/29/2025 until 05/29/2026Zinc, SerumZinc, Serum Lab Routine 20 weeks gestation of Bariatric surgery status complicating , second trimester 05/29/2025 1:48 PM [facility] Immunizations Immunization DateImmunizationNotesCare HikscsxfLcfkkcpn73-96-5786giilmnsbu, injectable, quadrivalent, preservative freeRiddhi Plata MD Work Phone: [facility] HospitalQfoxdjzmwb23-66-9844eweerybtl virus vaccine, unspecified formulationSEncompass Health Rehabilitation Hospital of Sewickley05-31-2012hepatitis A vaccine, pediatric/adolescent dosage, 2 dose scheduleRiddhi Plata MD Work Phone: [facility] HospitalDdesmnojaz87-53-0370puelabucs, seasonal, injectableRiddhi Plata MD Work Phone: [facility] HospitalGadqlppdfd90-65-3583ubadi papilloma virus vaccine, quadrivalentRiddhi Plata MD Work Phone: [facility] HospitalClyeafxpvw32-34-2198cmhhfbipj A vaccine, pediatric/adolescent dosage, 2 dose scheduleRiddhi Plata MD Work Phone: [facility] HospitalUofwtlpldp36-74-7213ennex papilloma virus vaccine, quadrivalentRiddhi Plata MD Work Phone: [facility] HospitalXjznriovkp50-40-5999poakeicoz A vaccine, pediatric/adolescent dosage, 2 dose scheduleRiddhi Plata MD Work Phone: [facility] HospitalJcslzeptgl42-75-6513wjrrz papilloma virus vaccine, quadrivalentRiddhi Plata MD Work Phone: [facility] HospitalXhlyhzcdlg64-97-4748elsbqbpvkguoz polysaccharide (groups A, C, Y and W-135) diphtheria toxoid conjugate vaccine (MCV4P)Riddhi Plata MD Work Phone: [facility] HospitalFffyllhgnm28-28-3342kaulaws toxoid, reduced diphtheria toxoid, and acellular pertussis vaccine, adsorbedRiddhi Plata MD Work Phone: [facility] HospitalHsexoernyb70-77-0030gzdmnndnhn, tetanus toxoids and acellular pertussis vaccine, unspecified formulationRiddhi Plata MD Work Phone: [facility] HospitalYepurergis18-21-1893hcdihzu, mumps and rubella virus vaccineRiddhi Plata MD Work Phone: [facility] HospitalLceyaenssk43-57-8952njuclleemc vaccine, unspecified formulationRiddhi Plata MD Work Phone: [facility] HospitalBfyaqfulhf29-82-6448ssndsxrowq, tetanus toxoids and acellular pertussis vaccine, unspecified formulationRiddhi Plata MD Work Phone: [facility] HospitalXkyzhscxey65-65-5429qsdthpzrwop influenzae type b vaccine, conjugate unspecified formulationRiddhi Plata MD Work Phone: [facility] HospitalNpvlvzpiwx98-73-6030zsqtrifcdv, tetanus toxoids and acellular pertussis vaccine, unspecified formulationRiddhi Plata MD Work Phone: [facility] HospitalIikrgepojm41-38-7038lgqppvmrzzn influenzae type b vaccine, conjugate unspecified formulationRiddhi Plata MD Work Phone: [facility] HospitalBwhgzszded54-64-0559pankiqadj B vaccine, pediatric or pediatric/adolescent dosageRiddhi Plata MD Work Phone: [facility] HospitalLcfbhlaxge91-86-8756ikjnmiqonn vaccine, unspecified formulationRiddhi Plata MD Work Phone: [facility] HospitalPzdwirzxkj62-02-3253ckydvyzusq, tetanus toxoids and acellular pertussis vaccine, unspecified formulationRiddhi Plata MD Work Phone: [facility] HospitalXogvyykdvy65-03-7786mzacevsuysp influenzae type b vaccine, conjugate unspecified formulationRiddhi Plata MD Work Phone: [facility] HospitalVfavmiqobi06-63-0970osglgsknf B vaccine, pediatric or pediatric/adolescent Jazlyn Plata MD Work Phone: [facility] HospitalZzhizdyzzb64-30-3307ozkyfprntg vaccine, unspecified formulationRiddhi Plata MD Work Phone: [facility] HospitalYgnzwhiykh41-88-7992ldepooylee, tetanus toxoids and acellular pertussis vaccine, unspecified formulationRiddhi Plata MD Work Phone: [facility] HospitalZwbezehliu27-06-7117rslnjcmzvrs influenzae type b vaccine, conjugate unspecified formulationRiddhi Plata MD Work Phone: [facility] HospitalZwkqhzodaj67-47-8705zugaduldq B vaccine, pediatric or pediatric/adolescent Jazlyn Plata MD Work Phone: [facility] HospitalYbfrzqfbmr49-92-0425aczlcoa, mumps and rubella virus vaccineRiddhi Plata MD Work Phone: [facility] HospitalKmbyeqezec66-74-8875vmbjvwlrwi vaccine, unspecified formulationRiddhi Plata MD Work Phone: [facility] Payers DatePayer CategoryPayerPolicy [id number] Health Insurance [id number] Care Other (unspecified)[employer] [id number] Medicaid (Managed Care)[employer] Member Subscriber Plan / Payer (Effective 2023-Present) Name: Shira Jett Relation to Subscriber: Self Name: Shira Jett Payer ID: Not on file Group ID: Not on file Type: Not on file Address: [address] [place] [id number] [id number] 2021Medicaid [place] [employer] Member Subscriber Plan / Payer (Effective 2021-Present) Name: Shira Jett Relation to Subscriber: Self Name: Shira Jett Payer ID: [id number] (NAIC) Group ID: Type: Not on file Address: [address] [place] [id number] [id number] 10.26.840.1.802800.3.57[id number] 2840.1.963537.3.57[id number] 2.16.840.1.294607.3.57[id number] 2.16.840.1.742827.3.57[id number] 2.16840.1.448698.3.57[id number] 2.16840.1.355243.3.57[id number] 2.840.1.554809.3.57[id number] 2.840.1.030855.3.57[id number] 2.840.1.151171.3.57[id number] 2.840.1.484587.3.57[id number] 2.840.1.847042.3.579.2.75280-90-5233Mxbvkdy9691519 2.840.1.406102.3.579.2.09834-90-0836Ekrmxci6763827 2.840.1.577801.3.579.[id number] 2.840.1.466298.3.57[id number] 2.840.1.581163.3.579.2.35369-52-3115Tbpxikb7506684 2.840.1.810706.3.57[id number] 2.16.840.1.225357.3.57[id number] 2.0.1.225556.3.57[id number] 2.840.1.306885.3.579.[id number] 2.0.1.248283.3.57[id number] 2.0.1.403419.3.579.[id number] 2..1.841967.3.57[id number] 2.0.1.708955.3.579.2.[id number] 2..1.949582.3.579.2.1[id number] 2..1.232638.3.57[id number] 2.840.1.211185.3.57[id number] 2..1.607323.3.579.2.291169-34-7091Skaomnt12670572 2.0.1.801227.3.579.2.894812-86-1729Dzhhsxi02073097 2..1.655146.3.579.2.306673-51-7775Gulnobz58740055 2.840.1.681375.3.579.2.396760-73-5991Tjvrwyz3034029 2.0.1.775635.3.579.2.601289-53-9746Abdlzhv1273494 2.16.840.1.701789.3.579.2.793558-21-0032Upgs-wpf04266401676-97-5989Zraprzm [id number] 1.2.840.791049.1.13.239.2.7.3.510715.24293-59-2269Uixkpmw [id number] 1.2.840.043634.1.13.239.2.7.3.144304.315Unknown Social History DateTypeDetailFacilityTobacco smoking status NHISTobacco smoking consumption unknownTrinity Health System [facility] CenterPulmonx Work Phone: start: 02-81-8844Bac Assigned At BirthNot on [facility] CenterP[facility]x Work Phone: start: 11-15-2021 End: 60-08-5788Imeqgwyl to SARS-CoV-2 (event)Not sureTrinity Health System Twin City Medical CenterPulmonx Work Phone: start: 11-29-2021 End: 72-02-5961Rdgmxvz smoking status NHISNever smoked tobaccoTrinity Health System Twin City Medical Centerjslyhl Phone: start: 11-29-2021 End: 82-52-8482Zevxrqi use and exposureSmokeless tobacco non-userTrinity Health System Twin [facility] Medical CenterPulmonx Work Phone: start: 12-01-2021 End: 96-63-1806Xcjcstn intakeLifetime non-drinker (finding)[facility] [employer] Work Phone: start: 48-00-5091Bheeuxv SDOH Iaojydmku0Fvcat Health Work Phone: start: 02-55-6472Mpvxxzq SDOH Food Uwfka1Iamwv Health Work Phone: start: 10-06-2020 End: 36-19-4827Zzfikab of Social functionProAOI Medical SystemStart: 10-06-2020 End: 59-66-7193Rklemkg use panelGood Hope Hospitaltart: 36-12-0106Nlgcpeq CommentCaffeine intake: 1-2 cups per day coffeeTwo Rivers Psychiatric HospitalStart: 07-19-2023 End: 49-20-7773Bmnctnb intakeEx-drinker (finding)[facility] Hospitaltart: 11-36-4513Vnhueuchjh depression screening rfylotvcjp2OacKtrbwk[address] [place] [address] Start: 42-67-3411Ojftufe CommentsocialGood Hope Hospitaltart: 1995 Sex Assigned At BirthDo[facility] Hospital [facility] Springfieldtart: 16-63-2906Pivttj identityIdentifies as female gender (finding)[facility] Hospitaltart: 49-42-4069Fietrz orientationHeterosexual (finding)[facility] CenterHa the [employer] gas, oil, or water Decisyon threatened to shut off services in your home in past 12MoNTriHealth Good Samaritan HospitalHow often to you have a drink containing alcohol?NeverGood Hope Hospitaltart: 67-26-7098ZjzIarmkh (finding)[facility] Hospitaltart: 71-08-6114CvjroiozhJUWR Healthcare Medical Equipment Procedure CodeEquipment CodeEquipment Original TextEquipment IdentifierDates Check fingersticks 4 times daily, fasting and 1 hour after the start of a meal [id number]: 05-29-2025 Goals DatePatient GoalDesired Activity/StatePersonal health goalPersonal health goal Comment on above: Evaluation of progress towards goal: safe transition from hospital to home with family support. Clinical Notes 11-28-2021 to 06-24-2025 Note Date & RrfaWzrbBveangll18-22-0116 History of Present illness Narrative* JOSEPHINE Chinchilla - 06/24/2025 1:40 PM EDT [...] index of 60.0-69.9 in adult ([facility] 01/26/2023 Polycystic ovarian disease 01/26/2023 Primary hypertension 01/26/2023 Adjustment disorder with anxiety 11/30/2021 Amnesia 05/17/2023 Anxiety 07/07/2019 Anemia 06/26/2019 Depression 06/13/2019 Disorder of endocrine system 05/17/2023 Family history of diabetes during 11/28/2021 Family history of thrombosis 03/17/2022 Frequent headaches 05/17/2023 Gastroesophageal reflux disease 12/15/2019 Gestational diabetes mellitus (GDM) ([facility]) 12/09/2018 History of diet controlled gestational diabetes mellitus (GDM) 11/30/2021 Iron deficiency anemia 12/29/2019 Irregular periods 05/17/2023 Menorrhagia with regular cycle 05/17/2023 Asthma ([facility]) 12/09/2018 Class 3 severe obesity due to excess calories with serious comorbidity and body mass index (BMI) of50.0 to 59.9 in adult ([facility] 05/17/2023 Nausea and vomiting 05/17/2023 Pneumonia due to infectious organism 07/30/2022 Preeclampsia in period ([facility]) 11/26/2021 Acute pulmonary embolism ([facility]) 05/17/2023 Single subsegmental pulmonary embolism without acute cor pulmonale ([facility]) 05/17/2023 Seasonal allergic rhinitis due to pollen 12/15/2019 Thyroid nodule 05/17/2023 Urinary tract infection without hematuria 05/17/2023 LUCIANO on CPAP 02/22/2023 History of pulmonary embolism 03/17/2022 H/O gastric bypass 04/20/2025 Resolved Ambulatory Problems Diagnosis Date Noted No Resolved Ambulatory Problems Past Medical History: Diagnosis Date Acute memory impairment COVID 02/2020 Encounter for insertion of Mirena IUD GERD without esophagitis Gestational diabetes ([facility]) H/O blood clots H/O: hypertension High blood pressure History of being hospitalized Hormone imbalance Intrauterine device surveillance Irregular bleeding Morbid obesity with BMI of 50.0-59.9, adult ([facility] Nausea Nausea with vomiting Pneumonia 07/30/2022 hypertension ([facility]) Pulmonary embolism ([facility]) 11/2021 Well woman exam HISTORY PAST MEDICAL [...] nursing note reviewed. Exam conducted with a community health outreach worker present. Vitals: Estimated body mass index is 43.65 kg/m as calculated from the following: Height as of 10/10/24: 5' 1 . Weight as of 06/10/25: 231 lb. BP: Patient's last menstrual period was 01/09/2025. ASSESSMENT & PLAN ICD-10-CM 1. Second trimester ([facility]) Z34.92 POCT urinalysis dipstick manually resulted 2. 23 weeks gestation of ([facility] [facility]) Z3A.23 3. History of diet controlled gestational diabetes mellitus (GDM) Z86.32 4. Preeclampsia in period ([facility]) O14.95 5. History of pulmonary embolism [...] given A1C/CBC order to have scheduled at [facility]. Pt can't not drink the glucose drink due to having gastric bypass surgery. Pt was advised to make sure to have her blood drawn. PVU. Pt states she was dx w/gallstones at the [facility] on 06/17/2025. Pt states she ended up [...] Diagnosis Date Acute memory impairment Anemia Asthma ([facility]) COVID 02/2020 Depression Encounter for insertion of Mirena IUD Frequent headaches GERD without esophagitis Gestational diabetes ([facility]) H/O blood clots H/O gastric bypass H/O: hypertension High blood pressure History of being hospitalized Pt was re-admitted to [facility] for HTN (11/2021) , Pt had a baby (11/21/21) Hormone imbalance Intrauterine device surveillance Irregular bleeding Morbid obesity with BMI of 50.0-59.9, adult (CMS-HCC) Nausea Nausea with vomiting Pneumonia 07/30/2022 hypertension (HHS-HCC) Pulmonary embolism (HCC) 11/2021 Rt. ; [place] post Well woman exam [3] Family History [...] FINE PERCUTANEOUS ASPIRATION 06/14/2020 documented in this encounterTwo Rivers Psychiatric [id number] Miscellaneous Notes* Telephone Encounter - Winter Gibbons LPN - 06/22/2025 3:41 PM EDT Left voicemail at [facility] with my direct phone number to inquire why patient is unable to refill her Lovexox as the prior auth was approved by insurance last week. [facility] Telephone encounter Note* Telephone Encounter - Winter Gibbons LPN - 06/22/2025 3:41 PM EDT Left voicemail at [facility] with my direct phone number to inquire why patient is unable to refill her Lovexox as the prior auth was approved by insurance last week. [facility]10[facility] Miscellaneous Notes* Telephone Encounter - Winter Gibbons LPN - 06/17/2025 8:59 AM EDT Spoke with patient in regards to [employer] message from last evening. Patient states the SOB and under the rib pain comes and goes. Denies headache or blurry vision but is noticing some swelling. Patient states this started out of the blue. Beef Skinner encouraged patient to be evaluated as soon as possible at the closest Emergency Room for further evaluation. Patient verbalized understanding. documented in this encounterOhio [facility]-2025 Telephone encounter Note* Telephone Encounter - Winter Gibbons LPN - 06/17/2025 8:59 AM EDT Spoke with patient in regards to [employer] message from last evening. Patient states the SOB and under the rib pain comes and goes. Denies headache or blurry vision but is noticing some swelling. Patient states this started out of the blue. [employer] encouraged patient to be evaluated as soon as possible at the closest Emergency Room for further evaluation. Patient verbalized understanding. [facility]10[facility]01-[facility]25 History of Present illness Narrative* Ned Spicer NP - 06/10/2025 8:50 AM EDT [...] index of 60.0-69.9 in adult ([facility]) 01/26/2023 Polycystic ovarian disease 01/26/2023 Primary hypertension 01/26/2023 Adjustment disorder with anxiety 11/30/2021 Amnesia 05/17/2023 Anxiety 07/07/2019 Anemia 06/26/2019 Depression 06/13/2019 Disorder of endocrine system 05/17/2023 Family history of diabetes during 11/28/2021 Family history of thrombosis 03/17/2022 Frequent headaches 05/17/2023 Gastroesophageal reflux disease 12/15/2019 Gestational diabetes mellitus (GDM) ([facility]) 12/09/2018 History of diet controlled gestational diabetes mellitus (GDM) 11/30/2021 Iron deficiency anemia 12/29/2019 Irregular periods 05/17/2023 Menorrhagia with regular cycle 05/17/2023 Asthma ([facility]) 12/09/2018 Class 3 severe obesity due to excess calories with serious comorbidity and body mass index (BMI) of50.0 to 59.9 in adult ([facility]) 05/17/2023 Nausea and vomiting 05/17/2023 Pneumonia due to infectious organism 07/30/2022 Preeclampsia in period ([facility]) 11/26/2021 Acute pulmonary embolism ([facility]) 05/17/2023 Single subsegmental pulmonary embolism without acute [...] IUD GERD without esophagitis Gestational diabetes ([facility]) H/O blood clots H/O: hypertension High blood pressure History of being hospitalized Hormone imbalance Intrauterine device surveillance Irregular bleeding Morbid obesity with BMI of 50.0-59.9, adult ([facility]) Nausea Nausea with vomiting Pneumonia 07/30/2022 hypertension ([facility]) Pulmonary embolism ([facility]) 11/2021 Well woman exam HISTORY PAST MEDICAL HISTORY SOCIAL HISTORY Past Medical History: Diagnosis Date Acute memory impairment Anemia Asthma (HCC) COVID 02/2020 Depression Encounter for insertion of Mirena IUD Frequent headaches GERD without esophagitis Gestational diabetes ([facility]) H/O blood clots H/O gastric bypass H/O: hypertension High blood pressure History of being hospitalized Pt was re-admitted to [facility] for HTN (11/2021) , Pt had a baby (11/21/21) Hormone imbalance Intrauterine device surveillance Irregular bleeding Morbid obesity with BMI of 50.0-59.9, adult ([facility]) Nausea Nausea with vomiting Pneumonia 07/30/2022 hypertension ([facility]) Pulmonary embolism ([facility]) 11/2021 Rt. ; [facility] post Well woman exam Social History Tobacco [...] nursing note reviewed. Exam conducted with a community health outreach worker present. Vitals: Estimated body mass index is 44.37 kg/m as calculated from the following: Height as of 10/10/24: 5' 1 . Weight as of 05/14/25: 234 lb 12.8 oz. BP: Patient's last menstrual period was 01/09/2025. ASSESSMENT & PLAN ICD-10-CM 1. 21 weeks gestation of ([facility]) Z3A.21 POCT urinalysis dipstick manually resulted 2. Well woman exam Z01.419 3. Second trimester ([facility]) Z34.92 4. Screen for STD (sexually transmitted [...] by Leslye Chairez LPN on behalf of: Ned Spicer NP documented in this encounterTwo Rivers Psychiatric [id number] History of Present illness Narrative* Winter Gibbons LPN - 05/29/2025 11:00 AM [...] risk Have you been seen here at [facility] in a previous ? No Recent ER visits or hospitalizations? Yes, for elevated blood pressure Bring blood sugar log or meter with you today? (Please bring them with you for every visit at [facility]) N/A Flu vaccine (Jul-November)? N/A Any concerns that you would like me to mention to the provider today? Increased urinary frequency denies burning, OB would like her to discuss Hx of blood clots - is a blood thinner needed, discuss BP management * Ester Pratt MD - 05/29/2025 11:00 AM EDT [...] for trisomy 13, 18, 21, monosomy X, ([place]) Carrier screening: I have reviewed the pertinent [...] Term 11/21/21 39w1d 3.685 kg F Vag-Spont HARLEY Complications: Gestational hypertension, Gestational diabetes, Preeclampsia in period 1 Term 11/18/18 39w0d 3.685 kg M Vag-Spont N [place] Complications: Gestational diabetes, Preeclampsia in period MEDICAL [...] Date CARDIAC CATHETERIZATION 07/30/2022 CARDIAC CATHETERIZATION 11/23/2018 SHIRLEYINCI DV5 BYPASS GASTRIC BONNIE-EN Y N/A 04/23/2024 Performed by Tonia Manzo MD at [facility] FINE NEEDLE ASPIRATION 06/14/2020 US Guided [...] TESTS AND ULTRASOUND REPORTS: Referral records and epic chart were reviewed Pertinent Ultrasound findings are see formal ultrasound report. PHYSICAL EXAMINATION: BP 100/62 (BP Site: Left Arm, BP Postition: Sitting) Pulse 51 Ht 154.9 cm(5' 0.98 ) Wt 103.5 kg (228 lb 3.2 oz) LMP 01/09/2025 BMI 43.14 kg/m Well-appearing in no distress. Respirations not labored, [...] recommended threshold of 160/110. Referenc e: PMID: [id number], 2021. Blood pressures do increase as progresses and [...] preeclampsia prevention as is recommended by the [place] [employer] Committee Opinion No. 743. [...] aspirin vs 10.3% no aspirin, p=0.45) (PMBID: [id number]). Given well-established benefits baby aspirin for the prevention of preeclampsia, I recommend initiating baby aspirin even in the setting of history of Bonnie-en-Y surgery. Micronutrient Dosing Recommendations: Calcium: recommend 1000-1200mg daily; if deficient, recommend [id number] mg PO daily in divided doses Vitamin [...] ultrasound, attempt completion in 4-6 weeks through [facility] serial growth ultrasounds every 4 weeks following [...] patient is in complete care of her automation sales manager. Patient does have ultrasound and office visit [...] procedures Referring and communicating with other health neurocritical care physician (not separately reported) Documenting clinical information in the electronic or other health record Independently interpreting results (not separately reported) and communicating results to the patient/family/caregiver Ester Pratt MD Maternal- Medicine [facility] [address] [place] [address] This document was created with [employer] technology. Though I make every effort to review the dictation as it is transcribed, on occasion the spoken word can be misinterpreted by the technology leading to inappropriate words, phrases, or sentences. This note is addressed to the requesting provider as a consultation for clinical guidance. Specificmedical abbreviations are occasionally used and those are generally approved by the [place]?Board of?Obstetrics and?Gynecology?as well as?Antonio s abbreviations. The above plan of care was based solely on the diagnoses for which a consultation was requested. ?More frequent testing may be indicated based on her other medical/obstetrical conditions. The management of other or medical conditions is beyond the scope of requested consultation and will c ontinue to be followed by the primary automation sales manager or primary care provider. Note to patient: The Cures Act makes medical notes like these [...] opinion of the practitioner. documented in this encounterOhio [facility]09-[facility]-2025 Telephone encounter Note* Telephone Encounter - Riddhi Plata MD - 05/25/2025 6:30 PM EDT Approvals with refills [facility] [id number] Miscellaneous Notes* Telephone Encounter - Riddhi Plata MD - 05/25/2025 6:30 PM EDT Approvals with refills documented in this encounterTwo Rivers Psychiatric [id number] History of Present illness Narrative* Ned Spicer NP - 05/14/2025 8:30 AM EDT Reason for Appointment: Patient ID: Shira Jett is a 30 y.o. female who presents for No chief complaint on file. Patient presents today for Return OB appointment. [...] body mass index of 60.0-69.9 in adult ([facility]) 01/26/2023 Polycystic ovarian disease 01/26/2023 Primary hypertension 01/26/2023 Adjustment disorder with anxiety 11/30/2021 Amnesia 05/17/2023 Anxiety 07/07/2019 Anemia 06/26/2019 Depression 06/13/2019 Disorder of endocrine system 05/17/2023 Family history of diabetes during 11/28/2021 Family history of thrombosis 03/17/2022 Frequent headaches 05/17/2023 Gastroesophageal reflux disease 12/15/2019 Gestational diabetes mellitus (GDM) ([facility]) 12/09/2018 History of diet controlled gestational diabetes mellitus (GDM) 11/30/2021 Iron deficiency anemia 12/29/2019 Irregular periods 05/17/2023 Menorrhagia with regular cycle 05/17/2023 Asthma ([facility]) 12/09/2018 Class 3 severe obesity due to excess calories with serious comorbidity and body mass index (BMI) of50.0 to 59.9 in adult ([facility]) 05/17/2023 Nausea and vomiting 05/17/2023 Pneumonia due to infectious organism 07/30/2022 Preeclampsia in period ([facility]) 11/26/2021 Acute pulmonary embolism ([facility]) 05/17/2023 Single subsegmental pulmonary embolism without acute cor pulmonale ([facility]) 05/17/2023 Seasonal allergic rhinitis due to pollen 12/15/2019 Thyroid nodule 05/17/2023 Urinary tract infection without hematuria 05/17/2023 LUCIANO on CPAP 02/22/2023 History of pulmonary embolism 03/17/2022 H/O gastric bypass 04/20/2025 Resolved Ambulatory Problems Diagnosis Date Noted No Resolved Ambulatory Problems Past Medical History: Diagnosis Date Acute memory impairment COVID 02/2020 Encounter for insertion of Mirena IUD GERD without esophagitis Gestational diabetes ([facility]) H/O blood clots H/O: hypertension High blood pressure History of being hospitalized Hormone imbalance Intrauterine device surveillance Irregular bleeding Morbid obesity with BMI of 50.0-59.9, adult ([facility]) Nausea Nausea with vomiting Pneumonia 07/30/2022 hypertension ([facility]) Pulmonary embolism ([facility]) 11/2021 Well woman exam HISTORY PAST MEDICAL HISTORY SOCIAL HISTORY Past Medical History: Diagnosis Date Acute memory impairment Anemia Asthma ([facility]) COVID 02/2020 Depression Encounter for insertion of Mirena IUD Frequent headaches GERD without esophagitis Gestational diabetes ([facility]) H/O blood clots H/O gastric bypass H/O: hypertension High blood pressure History of being hospitalized Pt was re-admitted to [facility] for HTN (11/2021) , Pt had a baby (11/21/21) Hormone imbalance Intrauterine device surveillance Irregular bleeding Morbid obesity with BMI of 50.0-59.9, adult ([facility]) Nausea Nausea with vomiting Pneumonia 07/30/2022 hypertension ([facility]) Pulmonary embolism ([facility]) 11/2021 Rt. ; [facility] post Well woman exam Social History Tobacco [...] SYSTEMS Review of Systems: Review of Systems OBJECTIVE Objective: OBGyn Exam Vitals: Estimated body mass index is 44.37 kg/m as calculated from the following: Height as of 10/10/24: 5' 1 . Weight as of this encounter: 234 lb 12.8 oz. BP: 124/80 Patient's last menstrual period was 01/09/2025. ASSESSMENT & PLAN ICD-10-CM 1. Well woman exam with routine gynecological exam Z01.419 Pap Smear HPV DNA probe, amplified 2. Screening, , for anatomic survey ([facility]) Z36.89 US OB 14+ weeks anatomy scan US OB 14+ weeks anatomy scan 3. Second trimester ([facility]) Z34.92 POCT urinalysis dipstick manually resulted Alpha fetoprotein, maternal Alpha fetoprotein, maternal 4. 17 weeks gestation of ([facility]) Z3A.17 POCT urinalysis dipstick manually resulted Alpha fetoprotein, maternal Alpha fetoprotein, maternal 5. Vaginal discharge N89.8 SURESWAB(R) ADVANCED VAGINITIS PLUS, TMA 6. STD exposure Z20.2 CHLAMYDIA TRACHOMATIS (GENITO/STI) Neisseria gonorrhea DNA probe, direct Return OB: Patient presents today for a routine obstetrics appointment. Patient is currently 17w6d . Patient states she is doing well but has complaints of being tired due to current . Patient has verbalizes frequent movement. labor precautions was discussed/given and patient was instructed to perform kick counts three times a day. Orders Placed This Encounter Procedures HPV DNA probe, amplified US OB 14+ weeks anatomy scan CHLAMYDIA TRACHOMATIS (GENITO/STI) Neisseria gonorrhea DNA probe, direct Alpha fetoprotein, maternal POCT urinalysis dipstick manually resulted Follow Up: Patient is to return to office in 4 week for routine OB appointment. Patient is scheduled with [facility] on May 29 and was given early 1 hour GTT at last appointment an states she will obtain 1 hour glucose this week. Taking Labetalol 200 mg TID and monitoring B/P at home. B/P today 124/80. Documented by Ned Spicer NP on behalf of: Ned Spicer NP documented in this encounterTwo Rivers Psychiatric [id number] History of Present illness Narrative* Ned Spicer NP - 04/20/2025 9:10 AM EDT Reason for Appointment: Patient ID: [...] morning cyanocobalamin (Vitamin B-12) 1000 MCG/ML injection omeprazole (PriLOSEC) [address] capsule TAKE 1 CAPSULE BY MOUTH DAILY 30 MINUTES BEFORE MORNING MEAL Vit-Fe Fumarate-FA ( Vitamins) 28-0.8 MG tablet 1 tablet, Oral, Daily ALLERGIES Allergies Allergen Reactions Sumatriptan Unknown and Anaphylaxis IMITREX FOR MIGRAINES PROBLEMS Active Ambulatory Problems Diagnosis Date Noted Morbid obesity with body mass index of 60.0-69.9 in adult ([facility]) 01/26/2023 Polycystic ovarian disease 01/26/2023 Primary hypertension 01/26/2023 Adjustment disorder with anxiety 11/30/2021 Amnesia 05/17/2023 Anxiety 07/07/2019 Anemia 06/26/2019 Depression 06/13/2019 Disorder of endocrine system 05/17/2023 Family history of diabetes during 11/28/2021 Family history of thrombosis 03/17/2022 Frequent headaches 05/17/2023 Gastroesophageal reflux disease 12/15/2019 Gestational diabetes mellitus (GDM) ([facility]) 12/09/2018 History of diet controlled gestational diabetes mellitus (GDM) 11/30/2021 Iron deficiency anemia 12/29/2019 Irregular periods 05/17/2023 Menorrhagia with regular cycle 05/17/2023 Asthma ([facility]) 12/09/2018 Class 3 severe obesity due to excess calories with serious comorbidity and body mass index (BMI) of50.0 to 59.9 in adult ([facility]) 05/17/2023 Nausea and vomiting 05/17/2023 Pneumonia due to infectious organism 07/30/2022 Preeclampsia in period ([facility]) 11/26/2021 Acute pulmonary embolism ([facility]) 05/17/2023 Single subsegmental pulmonary embolism without acute [...] IUD GERD without esophagitis Gestational diabetes ([facility]) H/O blood clots H/O: hypertension High blood pressure History of being hospitalized Hormone imbalance Intrauterine device surveillance Irregular bleeding Morbid obesity with BMI of 50.0-59.9, adult ([facility]) Nausea Nausea with vomiting Pneumonia 07/30/2022 hypertension ([facility]) Pulmonary embolism ([facility]) 11/2021 Well woman exam HISTORY PAST MEDICAL HISTORY SOCIAL HISTORY Past Medical History: Diagnosis Date Acute memory impairment Anemia Asthma (HCC) COVID 02/2020 Depression Encounter for insertion of Mirena IUD Frequent headaches GERD without esophagitis Gestational diabetes ([facility]) H/O blood clots H/O gastric bypass H/O: hypertension High blood pressure History of being hospitalized Pt was re-admitted to [facility] for HTN (11/2021) , Pt had a baby (11/21/21) Hormone imbalance Intrauterine device surveillance Irregular bleeding Morbid obesity with BMI of 50.0-59.9, adult ([facility]) Nausea Nausea with vomiting Pneumonia 07/30/2022 hypertension ([facility]) Pulmonary embolism ([facility]) 11/2021 Rt. ; [facility] post Well woman exam Social History Tobacco [...] nursing note reviewed. Exam conducted with a community health outreach worker present. Vitals: Estimated body mass index is 43.08 kg/m as calculated from the following: Height as of 10/10/24: 5' 1 . Weight as of this encounter: 228 lb. BP: 138/78 Patient's last menstrual period was 01/09/2025. ASSESSMENT & PLAN ICD-10-CM 1. Second trimester ([facility]) Z34.92 POCT urinalysis dipstick manually resulted 2. 14 weeks gestation of ([facility]) Z3A.14 3. Primary hypertension I10 4. H/O gastric bypass Z98.84 5. History of diet controlled gestational diabetes mellitus (GDM) Z86.32 Return OB: Patient presents today for a routine obstetrics appointment. Patient is currently 14w3d . Patient states she is doing well but has complaints of being tired due to current . Patient has verbalizes frequent movement. labor precautions was discussed/given and patient was instructed to perform kick counts three times a day. Orders Placed This Encounter Procedures POCT urinalysis dipstick manually resulted Follow Up: Patient is to return to office in 3 week for routine OB appointment. Will refer to MFM with historyof PE and gastric bypass. Will obtain early 1 hour glucose. Documented by Ned Spicer NP on behalf of: Bin Morales DO documented in this encounterTwo Rivers Psychiatric [id number] History of Present illness Narrative* Leslye Chairez LPN - 03/20/2025 9:00 AM [...] index of 60.0-69.9 in adult ([facility]) 01/26/2023 Polycystic ovarian disease 01/26/2023 Primary hypertension 01/26/2023 Adjustment disorder with anxiety 11/30/2021 Amnesia 05/17/2023 Anxiety 07/07/2019 Anemia 06/26/2019 Depression 06/13/2019 Disorder of endocrine system 05/17/2023 Family history of diabetes during 11/28/2021 Family history of thrombosis 03/17/2022 Frequent headaches 05/17/2023 Gastroesophageal reflux disease 12/15/2019 Gestational diabetes mellitus (GDM) ([facility]) 12/09/2018 History of diet controlled gestational diabetes mellitus (GDM) 11/30/2021 Iron deficiency anemia 12/29/2019 Irregular periods 05/17/2023 Menorrhagia with regular cycle 05/17/2023 Asthma ([facility]) 12/09/2018 Class 3 severe obesity due to excess calories with serious comorbidity and body mass index (BMI) of50.0 to 59.9 in adult ([facility]) 05/17/2023 Nausea and vomiting 05/17/2023 Pneumonia due to infectious organism 07/30/2022 Preeclampsia in period ([facility]) 11/26/2021 Acute pulmonary embolism ([facility]) 05/17/2023 Single subsegmental pulmonary embolism without acute cor pulmonale ([facility]) 05/17/2023 Seasonal allergic rhinitis due to pollen 12/15/2019 Thyroid nodule 05/17/2023 Urinary tract infection without hematuria 05/17/2023 LUCIANO on CPAP 02/22/2023 History of pulmonary embolism 03/17/2022 Resolved Ambulatory Problems Diagnosis Date Noted No Resolved Ambulatory Problems Past Medical History: Diagnosis Date Acute memory impairment COVID 02/2020 Encounter for insertion of Mirena IUD GERD without esophagitis Gestational diabetes ([facility]) H/O blood clots H/O gastric bypass H/O: hypertension High blood pressure History of being hospitalized Hormone imbalance Intrauterine device surveillance Irregular bleeding Morbid obesity with BMI of 50.0-59.9, adult ([facility]) Nausea Nausea with vomiting Pneumonia 07/30/2022 hypertension ([facility]) Pulmonary embolism (HCC) 11/2021 Well woman exam Family History Problem [...] dipstick manually resulted , unspecified gestational age ([facility]) - Type and screen; Future - ABO/Rh; [...] of normal first in first trimester ([facility]) - Rapid drug screen, urine; Future [...] or undercooked meat, and stay away from [facility]. Patient has also been advised to not change litter boxes and eat 6 small meals a day. Patient has been consulted regarding the do's and don'ts ofpregnancy. Patient was given labs and all questions and concerns were answered. Patient given [place] to have completed with initial labs and [...] by: Leslye Chairez LPN documented in this encounterTwo Rivers Psychiatric [id number] History of Present illness Narrative* Moriah Guthrie PA-C - 01/01/2025 11:30 AM EDTSummary: 8 months s/p RYGB, Dr. Manzo Images from the original note were not included. [facility] [address] [place] [phone] Subjective Patient ID: Shira Jett is a [...] improved. No nausea or emesis. Occasional constipation. Nodiarrhea. No dysphagia. Feeling a little fatigue recently. [...] past medical history, past social history, past surgicalhistory, problem list, and medication reconciliation was completed including current medication andpost discharge medication. Weight and Comorbid Conditions: 1. Morbid Obesity Height: 5 ft 1 in [place] body weight: 132 lb BMI 25.0 Personal Goal: To get healthy, stop BP meds, improve LUCIANO Pre op: 359 lb BMI 67.87 1 week post op: 338 lb BMI 63.86 6 weeks post op: NO INSPECTOR AND CLERK VISIT 3 months post op: NO VISIT [...] syndrome) Pneumonia Preeclampsia, severe 11/23/2018 Pulmonary embolism ([facility]) Shortness of breath Visual impairment stigmatism ROS: Review of Systems Constitutional: Negative for fatigue. HENT: Negative for trouble swallowing. Cardiovascular: Negative for leg swelling. Gastrointestinal: Negative for abdominal distention, abdominal pain, constipation, diarrhea, nauseaand vomiting. Skin: Negative for rash and wound [...] Days Post Op: (LATE 6 MONTH bypass [place] 04/23/24) Weight: 108.7 kg (239 lb 11.2 oz) BMI: 45.31 Decrease in BMI: 22.56 Weight Lost (kg): 54.11 Weight Lost (lbs): 119.29 % Decreased BMI: 33.24 % Decreased Excess Weight: 52.55 Physical Exam Vitals reviewed. Constitutional: General: She is not in acute distress. Appearance: Normal appearance. She is obese. She is not ill-appearing, toxic- appearing or diaphoretic. HENT: Head: Normocephalic and atraumatic. [...] the patient/family/caregiver Moriah Guthrie PA-C 01/01/25 1258 * Judson Guzmán CMA - 01/01/2025 11:30 AM EDT Per order of JOSEPHINE Kessler, patient received B12 injection IM. Patient tolerated injection well. Patient was advised to stay in clinic for 20 minutes and to report any adverse reactions immediately. documented in this encounterCleveland Clinic Lutheran HospitalNavTech University Of [facility] [id number] Instructions* Patient Instructions* Moriah Guthrie PA-C - 01/01/2025 11:30 AM [...] visit with Dr. Manzo documented in this encounterOhio State University [facility]02-20-2025 History of Present illness Narrative* Nilam Stallworth RN - 10/30/2024 8:38 AM EST 6 month labs entered. Patient has appointment 11/13/24 with May. documented in this encounterOhio State University [facility]01-31-2025 History of Present illness Narrative* Riddhi Plata MD - 10/10/2024 3:40 PM EST Images from the original note were [...] B-12) 1000 MCG/ML injection D3-50 1.25 MG (73941 UT) capsule fluticasone (Flonase) 50 MCG/ACT nasal [...] Depression: Not at risk (04/23/2024) Received from [employer] PHQ-2 Total Score: 0 REVIEW OF SYMPTOMS: [...] Orders STATUS COVID-19/FLU (Completed) documented in this encounterTwo Rivers Psychiatric [id number] History of Present illness Narrative* Riddhi Plata MD - 08/25/2024 8:20 AM EST Images from the original note [...] B-12) 1000 MCG/ML injection D3-50 1.25 MG (19601 UT) capsule fluticasone (Flonase) 50 MCG/ACT nasal [...] Depression: Not at risk (04/23/2024) Received from [employer] PHQ-2 Total Score: 0 REVIEW OF SYMPTOMS: [...] TIBC Assessment & Plan documented in this encounterTwo Rivers Psychiatric [id number] History of Present illness Narrative* Riddhi Plata MD - 06/12/2024 3:20 PM EDT Shira Jett is a 29 y.o. female presents with chief complaint of UTI HPI: HPI SUBJECTIVE: MEDICATIONS: Current Outpatient Medications Medication Instructions albuterol HFA 90 mcg/act inhaler 2 puffs, Inhalation, Every 4 hours PRN busPIRone (BUSPAR) 15 mg, Oral, 2 times daily citalopram (CELEXA) 20 mg, Oral, Every morning D3-50 1.25 MG (40782 UT) capsule fluticasone (Flonase) 50 MCG/ACT nasal [...] Depression: Not at risk (04/23/2024) Received from [employer] PHQ-2 Total Score: 0 REVIEW OF SYMPTOMS: [...] importance of vitamin comlpiance documented in this encounterTwo Rivers Psychiatric HospitalNplizbrlcb82-84-4674 History of Present illness Narrative* Judson Guzmán CMA - 06/04/2024 11:30 AM EDT Per order of JOSEPHINE Kessler, patient received education on self administration of B12 injection (IM). Patient tolerated injection well and was able to provide teach back instructions. A prescription will be sent to her pharmacy for her to do her injections at home. Patient was advised to stay in clinic for 20 minutes and to report any adverse reactions immediately. documented in this encounterOhio State University [facility] Center09-25-2024 History of Present illness Narrative* Jenny Moise, MICHAEL - 06/04/2024 10:30 AM EDT Bariatric Medical Nutrition Therapy Nutritional Education Post-Op [...] % Decreased BMI: 10.14 Tacking intake in [employer] sly. Struggles meeting 80 grams of protein [...] vitamin/mineral regimen that begins 6 weeks post weightloss surgery. 1) 2 multivitamins with iron daily or 1 vitamin daily. 2) 1508-4619 mg calcium in divided doses (2x/day) for sleeve and gastric bypass, 4351-3920 mg in divided doses (3x/day) for SADS [...] all discussed has been provided within the [facility] Bariatric Guide. Start time: 1038 End time: 1108 documented in this encounterCleveland Clinic Lutheran HospitalFieldView Solutions09-25-2024 Instructions* Patient Instructions* Jenny Moise RD - 06/04/2024 10:30 AM EDT Read the [facility] Bariatric Guide. If you re looking for general health and wellness resources, please visit [email or web address]. documented in this encounterCleveland Clinic Lutheran HospitalSterio.me [id number] History of Present illness Narrative* Jenny Moise RD - 05/01/2024 1:00 PM EDT Bariatric Medical Nutrition Therapy Nutritional Assessment/Education Post-Op [...] all discussed has been provided within the [facility] Bariatric Guide. Nutrition Monitoring: To follow up approximately 6 weeks post-op weight loss surgery. Start time: 1243 End time: 1301 documented in this encounterOhio State University [facility]08-22-2024 Instructions* Patient Instructions* Jenny Moise RD - 05/01/2024 1:00 PM EDT Read the [facility] Bariatric Guide. If you re looking for general health and wellness resources, please visit [facility] [email or web address]. documented in this encounterOhio State University [facility]08-22-2024 History of Present illness Narrative* Tonia Manzo MD - 05/01/2024 12:30 PM EDT [facility] [address] [place] [phone] SURGICAL WEIGHT LOSS PROGRAM PROGRESS NOTE POSTOP [...] Group [x] Exercise Regularly documented in this encounterOhio State University [facility] Center08-18-2024 Miscellaneous Notes* Telephone Encounter - Shayy Alonso Lou - 04/27/2024 1:07 PM EDT Contract: OC 105 Patient calling in stating she just had surgery on the Apr 23 and she is having bloody mucous when she coughs. Connected Dr. Manzo with Shira documented in this encounterOhio State University [facility] Center08-18-2024 Telephone encounter Note* Telephone Encounter - NEIL Davenport - 04/27/2024 1:07 PM EDT Contract: OC 105 Patient calling in stating she just had surgery on the Apr 23 and she is having bloody mucous when she coughs. Connected Dr. Manzo with Shira [facility]08-15-2024 Hospital course Narrative* Moriah Guthrie PA-C - 04/24/2024 10:46 AM EDT Images from the original note [...] up to 7 days. Max Daily Amount: 4tablets CHANGE how you take these medications Instructions [...] Your Medications These medications were sent to [facility] [id number] [facility] [address] [facility] [address] [facility] [address] cyclobenzaprine 10 mg tablet enoxaparin 40 mg/0.4 mL syringe omeprazole 40 mg capsule ondansetron ODT 4 mg disintegrating tablet oxyCODONE-acetaminophen 5-325 mg per tablet Moriah Guthrie PA-C 04/24/24 1048 Moriah Guthrie PA-C 04/24/24 1050 documented in this encounterOhio State University [facility] Center08-15-2024 Progress note* Discharge Planning Note - Shira Bledsoe RN - 04/24/2024 10:43 AM EDT DISCHARGE PLANNING NOTE Case discussed in daily transition rounds and chart reviewed by CN. Barriers to discharge include diet tolerance Discharge Plan remains: Home self care with family support. Family to transport home. Patient denies any needs for discharge at this time. CN will continue to follow and is available should any further needs arise. - Shira Bledsoe RN 04/24/24 10:44 AM [facility]08-15-2024 Miscellaneous Notes* Discharge Planning Note - Shira Bledsoe RN - 04/24/2024 10:43 AM EDT DISCHARGE PLANNING NOTE Case discussed in daily transition rounds and chart reviewed by CN. Barriers to discharge include diet tolerance Discharge Plan remains: Home self care with family support. Family to transport home. Patient denies any needs for discharge at this time. CN will continue to follow and is available should any further needs arise. - Shira Bledsoe RN 04/24/24 10:44 AM * Plan of Care - Olga Montana RN - 04/24/2024 10:34 AM EDT Problem: Pain Goal: Patient goal is pain score less than 4, able to rest, and participant in treatment plan as appropriate Description: INTERVENTIONS: 1. Encourage patient or legal business office representative to report early pain and ask [...] per policy 9. Teach patient or legal business office representative interventions for comforting Outcome: Progressing Note: [...] at the bedside 7. Instruct patient/ patient business office representative about use of safety devices 8. Include patient/ patient business office representative in decisions related to safety Outcome: [...] hygiene technique 7. Identify and instruct patient/patient business office representative in use of appropriate isolation precautionsfor identified infection/symptoms 8. Provide and discuss with patient/patient business office representative on educational MDRO sheet 9. Encourage and monitor nutritional status daily and consult data processing equipment repairer if indicated 10. Implement neutropenic guidelines as needed 11. Review exposure to history of communicable disease and recent travel history on admission 12. Encourage annual influenza vaccine 13. Encourage pneumonia vaccine Outcome: Progressing Note: Evaluation of progress towards goal: afebrile, cont to monitor Problem: Knowledge Deficit Goal: Patient/patient business office representative demonstrates understanding of disease process, treatment plan,medications, and discharge instructions Description: INTERVENTIONS 1. Complete [...] planning to home later today Additional Comments: * Plan of Care - Macrina Armenta RN - 04/23/2024 10:46 PM EDT Problem: Inadequate Airway Clearance Goal: Patient will [...] anxiety both physical and emotional (heart palpitations, chestpain, shortness of breath, headaches, nausea, feeling jumpy, [...] Collaborate with ancillary departments 14. Include patient/patient business office representative in decisions related to anxiety Outcome: [...] care 6. Collaborate with pastoral/spiritual care, social welfare clerk, mental health counselor as needed. 7. Instruct patient on diversional activities such as physical activity, distraction, and deep breathing exercises to assist with coping 8. Involve patient's business office representative in care Outcome: Progressing Note: Evaluation of progress towards goal: Patient is cooperative, social and attends unit programming. 1:1 interaction, support and encouragement provided. Patient discusses issues openly with staffand identifies stressors, develops goals and coping skills Problem: Pain Goal: Patient goal is pain score less than 4, able to rest, and participant in treatment plan as appropriate Description: INTERVENTIONS: 1. Encourage patient or legal business office representative to report early pain and ask [...] per policy 9. Teach patient or legal business office representative interventions for comforting Outcome: Progressing Note: [...] at the bedside 7. Instruct patient/ patient business office representative about use of safety devices 8. Include patient/ patient business office representative in decisions related to safety Outcome: Progressing Note: Evaluation of progress towards goal: Pt remains free from falls and injury, medicated using 5rights, hand hygiene in and out of room, [...] hygiene technique 7. Identify and instruct patient/patient business office representative in use of appropriate isolation precautionsfor identified infection/symptoms 8. Provide and discuss with patient/patient business office representative on educational MDRO sheet 9. Encourage and monitor nutritional status daily and consult data processing equipment repairer if indicated 10. Implement neutropenic guidelines as needed 11. Review exposure to history of communicable disease and recent travel history on admission 12. Encourage annual influenza vaccine 13. Encourage pneumonia vaccine Outcome: Progressing Note: Evaluation of progress towards goal: Pt vitals and labs monitored, proper standard precautions for infection prevention, all insertion/surgical sites monitored for infection Problem: Knowledge Deficit Goal: Patient/patient business office representative demonstrates understanding of disease process, treatment plan,medications, and discharge instructions Description: INTERVENTIONS 1. Complete [...] of 0 - 24 or indicated by [facility] Rehab Assessment Goal: Patient should be free from fall Description: Interventions: 1. [place] to environment 2. Hourly rounds addressing the [...] non-skid footwear 11. Teach patient and patient business office representative to maintain environment for safety and engage in all aspects of fall prevention program Outcome: Progressing Note: Evaluation of progress towards goal: Patient remains free from falls and injuries. Patient's 5 P's addressed. Patient bed is in a locked position. Patient has call light for assistance. * Plan of Care - Staci Dey RN - 04/23/2024 3:23 PM EDT Problem: Pain Goal: Patient goal is pain score less than 4, able to rest, and participant in treatment plan as appropriate Description: INTERVENTIONS: 1. Encourage patient or legal business office representative to report early pain and ask [...] per policy 9. Teach patient or legal business office representative interventions for comforting Outcome: Progressing Note: [...] at the bedside 7. Instruct patient/ patient business office representative about use of safety devices 8. Include patient/ patient business office representative in decisions related to safety Outcome: Progressing Note: Evaluation of progress towards goal: patient is independent and stead on feet Problem: Knowledge Deficit Goal: Patient/patient business office representative demonstrates understanding of disease process, treatment plan,medications, and discharge instructions Description: INTERVENTIONS 1. Complete learning assessment and assess knowledge base 2. Provide teaching at level of understanding 3. Provide teaching via preferred learning method(s) Note: Evaluation of progress towards goal: patient educated on importance of ambulating in the hallways * Op Note - Tonia Manzo MD - 04/23/2024 9:02 AM EDT Bonnie-en-Y Gastric Bypass Operative Note Patient: Shira Jett : 1995 Date: 04/23/24 Preoperative diagnosis: Class 3 obesity with a BMI of 66.9 Postoperative diagnosis: same Procedure: Robotic Bonnie-en-Y Gastric Bypass Surgeon: Tonia Manzo MD Post Hole Digging Machine Operator: Hanna Jaquez MD-Fellow Anesthesia: General Endotracheal Intra-operative [...] total of 60 ml. Good separation of themuscle planes was seen bilaterally indicating good placement of the anesthetic solution. Prior to docking the robot, the ligament of Trietz was clearly identified and a distance of approximately 100 cm was measured and at this level, the mesentery was marked to delineate the proximal anddistal bowel. One hemoclip was used to sonu [...] this fire was done then a 32 [place] VisiGi 3D orogastric tube was guided along [...] at the transverse colon and working proximally tocreate a passage for the antecolic Bonnie limb. Next, the transverse mesocolon was elevated and the pr eviously placed clips were easily identified marking proximal and distal. The bowel was then brought up to the pouch in an [place] loop technique and reached the pouch without any tension. Enterotomieswere then made using the hot scissors in both pouch and the small bowel. A linear stapled gastrojejunostomy was then performed using a blue load robotic stapler to a distance of approximately 28 mm. The stoma was then closed in two layers using a 0 Stratafix suture in a running fashion. Prior to completing the stoma, the 32 [place] tube was advanced from the pouch into the Bonnie limb. The sutures were secured using a hemlock. Once the gastrojejunostomy was completed, then the small bowel was divided just lateral to the gastrojejunostomy using a 60 white load of the robotic stapler. I then measured a distance of 120 cm for the Bonnie limb and the jejunojejunostomy was completed in the left upperquadrant. To do this, enterotomies were made using hot scissors in both the BP limb as well as the Bonnie limb and then a [id number] stapled jejunojejunostomy was completed using a 60 white load robot ic stapler. The jejunal defect was then closed [...] was no evidence of a leak. The pouchwas suctioned out and the OG was withdrawn. Once this was completed then both anastomoses were checked one more time. There was no evidence of any bleeding or ischemia so the Eze liver retractor was removed under vision. All remaining robotic instruments were removed under vision, as were theports and then the camera port was removed last. Once all ports were out all skin incisions were injected with local anesthetic solution, closed with 4-0 Monocryl suture and then skin glue material was applied. The patient tolerated the procedure well and was transferred to the recovery room in satisfactory condition. TONIA MANZO MD 04/23/24 documented in this [facility]08-15-2024 Plan of care note * Plan of Care - Olga Montana RN - 04/24/2024 10:34 AM EDT Problem: Pain Goal: Patient goal is pain score less than 4, able to rest, and participant in treatment plan as appropriate Description: INTERVENTIONS: 1. Encourage patient or legal business office representative to report early pain and ask [...] per policy 9. Teach patient or legal business office representative interventions for comforting Outcome: Progressing Note: [...] at the bedside 7. Instruct patient/ patient business office representative about use of safety devices 8. Include patient/ patient business office representative in decisions related to safety Outcome: [...] hygiene technique 7. Identify and instruct patient/patient business office representative in use of appropriate isolation precautionsfor identified infection/symptoms 8. Provide and discuss with patient/patient business office representative on educational MDRO sheet 9. Encourage and monitor nutritional status daily and consult data processing equipment repairer if indicated 10. Implement neutropenic guidelines as needed 11. Review exposure to history of communicable disease and recent travel history on admission 12. Encourage annual influenza vaccine 13. Encourage pneumonia vaccine Outcome: Progressing Note: Evaluation of progress towards goal: afebrile, cont to monitor Problem: Knowledge Deficit Goal: Patient/patient business office representative demonstrates understanding of disease process, treatment plan,medications, and discharge instructions Description: INTERVENTIONS 1. Complete [...] planning to home later today Additional Comments: T [facility]08-15-2024 History of Present illness Narrative* Melanie Zee RN - 04/24/2024 10:30 AM EDT MBS Coordinator Rounding Note POD #1 Reinforced [...] proper technique in utilizing incentive spirometer. 10 times/ hour while awake. Continuing for two weeks [...] was able to void. Relates to dehydration, asshe did not drink very much yesterday due [...] on having access to the bariatric surgeon monitoring analyst 02/04, by calling the office phone number. Will monitor her B/P when goes home. Instructed to bring B/P log to her one-week follow-up appointment. All education provided outlined within the [facility] Bariatric Guide. Patient verbalized an understanding of all education reinforced. Personalized letter mailed to patient, providing medical technical writer's contact information. Melanie Zee RN, CBN Metabolic & Bariatric Surgery Coordinator [facility] Weight Loss Surgery * Moriah Guthrie PA-C - 04/24/2024 9:30 AM EDT Shira Jett is doing very well. Tolerating liquids and protein shake. Mild nausea with drinking, no emesis, + flatus, no BM yet. Incisional pain controlled with Percocet. Voiding without difficulty. Ambulating in the halls. Discussed potential discharge later today if she continues to do welland tolerate protein drink. Patient agrees with the [...] nondistended, appropriate incisional tenderness to palpation. Abdominal incisionsC/D/I with skin glue. Abdominal binder in place. [...] Guthrie PA-C 04/24/24 1046 documented in this encounterOhio State University [facility]08-14-2024 Plan of care note * Plan of Care - Macrina Armenta RN - 04/23/2024 10:46 PM EDT Problem: Inadequate Airway Clearance Goal: Patient will [...] anxiety both physical and emotional (heart palpitations, chestpain, shortness of breath, headaches, nausea, feeling jumpy, [...] Collaborate with ancillary departments 14. Include patient/patient business office representative in decisions related to anxiety Outcome: [...] care 6. Collaborate with pastoral/spiritual care, social welfare clerk, mental health counselor as needed. 7. Instruct patient on diversional activities such as physical activity, distraction, and deep breathing exercises to assist with coping 8. Involve patient's business office representative in care Outcome: Progressing Note: Evaluation of progress towards goal: Patient is cooperative, social and attends unit programming. 1:1 interaction, support and encouragement provided. Patient discusses issues openly with staffand identifies stressors, develops goals and coping skills Problem: Pain Goal: Patient goal is pain score less than 4, able to rest, and participant in treatment plan as appropriate Description: INTERVENTIONS: 1. Encourage patient or legal business office representative to report early pain and ask [...] per policy 9. Teach patient or legal business office representative interventions for comforting Outcome: Progressing Note: [...] at the bedside 7. Instruct patient/ patient business office representative about use of safety devices 8. Include patient/ patient business office representative in decisions related to safety Outcome: Progressing Note: Evaluation of progress towards goal: Pt remains free from falls and injury, medicated using 5rights, hand hygiene in and out of room, [...] hygiene technique 7. Identify and instruct patient/patient business office representative in use of appropriate isolation precautionsfor identified infection/symptoms 8. Provide and discuss with patient/patient business office representative on educational MDRO sheet 9. Encourage and monitor nutritional status daily and consult data processing equipment repairer if indicated 10. Implement neutropenic guidelines as needed 11. Review exposure to history of communicable disease and recent travel history on admission 12. Encourage annual influenza vaccine 13. Encourage pneumonia vaccine Outcome: Progressing Note: Evaluation of progress towards goal: Pt vitals and labs monitored, proper standard precautions for infection prevention, all insertion/surgical sites monitored for infection Problem: Knowledge Deficit Goal: Patient/patient business office representative demonstrates understanding of disease process, treatment plan,medications, and discharge instructions Description: INTERVENTIONS 1. Complete [...] of 0 - 24 or indicated by [facility] Assessment Goal: Patient should be free from fall Description: Interventions: 1. [place] to environment 2. Hourly rounds addressing the [...] non-skid footwear 11. Teach patient and patient business office representative to maintain environment for safety and engage in all aspects of fall prevention program Outcome: Progressing Note: Evaluation of progress towards goal: Patient remains free from falls and injuries. Patient's 5 P's addressed. Patient bed is in a locked position. Patient has call light for assistance. [facility]08-14-2024 Plan of care note* Plan of Care - Staci Dey RN - 04/23/2024 3:23 PM EDT Problem: Pain Goal: Patient goal is pain score less than 4, able to rest, and participant in treatment plan as appropriate Description: INTERVENTIONS: 1. Encourage patient or legal business office representative to report early pain and ask [...] per policy 9. Teach patient or legal business office representative interventions for comforting Outcome: Progressing Note: [...] at the bedside 7. Instruct patient/ patient business office representative about use of safety devices 8. Include patient/ patient business office representative in decisions related to safety Outcome: Progressing Note: Evaluation of progress towards goal: patient is independent and stead on feet Problem: Knowledge Deficit Goal: Patient/patient business office representative demonstrates understanding of disease process, treatment plan,medications, and discharge instructions Description: INTERVENTIONS 1. Complete learning assessment and assess knowledge base 2. Provide teaching at level of understanding 3. Provide teaching via preferred learning method(s) Note: Evaluation of progress towards goal: patient educated on importance of ambulating in the hallways [employer] [id number] Procedure note* Op Note - Tonia Manzo MD - 04/23/2024 9:02 AM EDT Bonnie-en-Y Gastric Bypass Operative Note Patient: Shira Jett : 1995 Date: 04/23/24 Preoperative diagnosis: Class 3 obesity with a BMI of 66.9 Postoperative diagnosis: same Procedure: Robotic Bonnie-en-Y Gastric Bypass Surgeon: Tonia Manzo MD Post Hole Digging Machine Operator: Hanna Jaquez MD-Fellow Anesthesia: General Endotracheal Intra-operative [...] total of 60 ml. Good separation of themuscle planes was seen bilaterally indicating good placement of the anesthetic solution. Prior to docking the robot, the ligament of Trietz was clearly identified and a distance of approximately 100 cm was measured and at this level, the mesentery was marked to delineate the proximal anddistal bowel. One hemoclip was used to sonu [...] this fire was done then a 32 Rwandan VisiGi 3D orogastric tube was guided along [...] at the transverse colon and working proximally tocreate a passage for the antecolic Bonnie limb. Next, the transverse mesocolon was elevated and the pr eviously placed clips were easily identified marking proximal and distal. The bowel was then brought up to the pouch in an [place] loop technique and reached the pouch without any tension. Enterotomieswere then made using the hot scissors in both pouch and the small bowel. A linear stapled gastrojejunostomy was then performed using a blue load robotic stapler to a distance of approximately 28 mm. The stoma was then closed in two layers using a 0 Stratafix suture in a running fashion. Prior to completing the stoma, the 32 Rwandan tube was advanced from the pouch into the Bonnie limb. The sutures were secured using a hemlock. Once the gastrojejunostomy was completed, then the small bowel was divided just lateral to the gastrojejunostomy using a 60 white load of the robotic stapler. I then measured a distance of 120 cm for the Bonnie limb and the jejunojejunostomy was completed in the left upperquadrant. To do this, enterotomies were made using hot scissors in both the BP limb as well as the Bonnie limb and then a pivx-lv-wcpg stapled jejunojejunostomy was completed using a 60 white load robot ic stapler. The jejunal defect was then closed [...] was no evidence of a leak. The pouchwas suctioned out and the OG was withdrawn. Once this was completed then both anastomoses were checked one more time. There was no evidence of any bleeding or ischemia so the Eze liver retractor was removed under vision. All remaining robotic instruments were removed under vision, as were theports and then the camera port was removed last. Once all ports were out all skin incisions were injected with local anesthetic solution, closed with 4-0 Monocryl suture and then skin glue material was applied. The patient tolerated the procedure well and was transferred to the recovery room in satisfactory condition. TONIA MANZO MD 04/23/24 [facility]ClauseMatchGalion Community [id number] Attending History and physical note* Tonia Manzo MD - 04/23/2024 8:43 AM EDT HISTORY AND PHYSICAL INTERVAL NOTE: Shira Jett 1995 [id number] H&P reviewed. The patient was examined and there are no changes to the H&P. TONIA MANZO MD Source Note - Brendany Hubbard APRN-CHIP BIN CONVEYOR TENDER - 04/15/2024 8:30 AM EDT PRE-ADMISSION TESTING HISTORY AND PHYSICAL EXAM DATE: 04/15/24 PCP: Riddhi Plata MD HISTORY OF PRESENT ILLNESS: Shira Jett, a 29 y.o. White or female, presents to [facility] for a pre-surgical H&P.The patient has been diagnosed with MORBID OBESITY/HYPERTENSION [...] syndrome) Pneumonia Preeclampsia, severe 11/23/2018 Pulmonary embolism ([facility]) Shortness of breath Visual impairment stigmatism PAST [...] the morning and 50 mg before bedtime., Disp:, Rfl: cholecalciferol, vitamin D3, 50,000 units tablet, [...] the most recent lab values available in [facility] at the time ofthe office visit and additional labs may have been drawn since that time. ASSESSMENT / DIAGNOSIS: MORBID OBESITY/HYPERTENSION PLAN: Shira Jett is scheduled for Davinci Bypass Gastric Bonnie En Y on 04/23/[address] Manzo. MARCEL Louis 04/15/24 1001 MARCEL Louis 04/23/24 0843 [facility]08-14-2024 History and physical note* Tonia Manzo MD - 04/23/2024 8:43 AM EDT HISTORY AND PHYSICAL INTERVAL NOTE: Shira Jett 1995 [id number] H&P reviewed. The patient was examined and there are no changes to the H&P. TONIA MANZO MD Source Note - MARCEL Louis - 04/15/2024 8:30 AM EDT PRE-ADMISSION TESTING HISTORY AND PHYSICAL EXAM DATE: 04/15/24 PCP: Riddhi Plata MD HISTORY OF PRESENT ILLNESS: Shira Jett, a 29 y.o. White or female, presents to [facility] for a pre-surgical H&P.The patient has been diagnosed with MORBID OBESITY/HYPERTENSION [...] syndrome) Pneumonia Preeclampsia, severe 11/23/2018 Pulmonary embolism ([facility]) Shortness of breath Visual impairment stigmatism PAST [...] the morning and 50 mg before bedtime., Disp:, Rfl: cholecalciferol, vitamin D3, 50,000 units tablet, [...] the most recent lab values available in [facility] at the time ofthe office visit and additional labs may have been drawn since that time. ASSESSMENT / DIAGNOSIS: MORBID OBESITY/HYPERTENSION PLAN: Shira Jett is scheduled for Davinci Bypass Gastric Bonnie En Y on 04/23/[address] Manzo. Brenda Hubbard APRN-DEREK 04/15/24 1001 Brenda Hubbard APRN-DEREK 04/23/24 0843 documented in [facility]Ohio [facility] Miscellaneous Notes* Telephone Encounter - Nilam Stallworth RN - 04/17/2024 1:49 PM EDT Patient contacted office. Needs RX for colace resent to [facility]. documented in [facility] Telephone encounter Note* Telephone Encounter - Nilam Stallworth RN - 04/17/2024 1:49 PM EDT Patient contacted office. Needs RX for colace resent to [facility]. [facility]08-06-2024 History of Present illness Narrative* Nilam Stallworth RN - 04/15/2024 2:00 PM EDT Pre-operative Bariatric Educational Class Date and start time of pre-operative class: 04/15/2024 1418 Date and end time of pre-operative class: 04/15/2024 1530 DX: Morbid obesity, BMI 67.98 The following education was reviewed during the pre-operative class: 1. Reinforced potential risks already reviewed by the surgeon:leak, blood clots, pulmonary embolus,dumping syndrome, nutritional deficiencies and infection. 2. Reviewed patient's role in helping prevent complications: ambulating, deep breathing and coughing exercises, using incentive spirometer every hour X 10 times, following the recommended diet, compliance with taking recommended vitamins and minerals and knowing the signs and symptoms of complications to report. 3. [id number] steps to weight loss surgery. 4. Instructed to bring [facility] Bariatric Guide to all appointments. [...] bariatric operations, Pre-operative liquid diet, Before surgery, Pre- operative shower and Your surgery. 9. Reviewed Day [...] materials provided within the [facility] Bariatric Guide. * Tonia Manzo MD - 04/15/2024 2:00 PM EDT Attesting Statement (Primary Care Exception) I reviewed the care furnished by the resident, immediately after the visit including the medical history, diagnosis, findings on physical examination, and treatment plan. I participated in the reviewand direction of the services furnished by Page Huang RN. documented in this [facility]08-06-2024 Instructions* Patient Instructions* Nilam Stallworth RN - 04/15/2024 2:00 PM EDT Preoperative Bariatric Surgery Educational Class documented in this [facility]08-06-2024 History of Present illness Narrative* Nilam Stallworth RN - 04/15/2024 1:23 PM EDT Pre op CXR entered. documented in this [facility]08-06-2024 History and physical note* MARCEL Louis - 04/15/2024 8:30 AM EDT PRE-ADMISSION TESTING HISTORY AND PHYSICAL EXAM DATE: 04/15/24 PCP: Riddhi Plata MD HISTORY OF PRESENT ILLNESS: Shira Jett, a 29 y.o. White or female, presents to [facility] for a pre-surgical H&P.The patient has been diagnosed with MORBID OBESITY/HYPERTENSION [...] syndrome) Pneumonia Preeclampsia, severe 11/23/2018 Pulmonary embolism ([facility]) Shortness of breath Visual impairment stigmatism PAST [...] the morning and 50 mg before bedtime., Disp:, Rfl: cholecalciferol, vitamin D3, 50,000 units tablet, [...] the most recent lab values available in [facility] at the time ofthe office visit and additional labs may have been drawn since that time. ASSESSMENT / DIAGNOSIS: MORBID OBESITY/HYPERTENSION PLAN: Shira Jett is scheduled for Davinci Bypass Gastric Bonnie En Y on 04/23/[address] Manzo. Brenda Hubbard APRN-CHIP BIN CONVEYOR TENDER 04/15/24 1001 [employer] Work Phone: [phone]) 126-355108-06-2024 History and physical note* Brenda Hubbard, [employer]MING MILL OPERATOR-CHIP BIN CONVEYOR TENDER - 04/15/2024 8:30 AM EDT PRE-ADMISSION TESTING HISTORY AND PHYSICAL EXAM DATE: 04/15/24 PCP: Riddhi Plata MD HISTORY OF PRESENT ILLNESS: Shira Jett, a 29 y.o. White or female, presents to [facility] for a pre-surgical H&P.The patient has been diagnosed with MORBID OBESITY/HYPERTENSION [...] syndrome) Pneumonia Preeclampsia, severe 11/23/2018 Pulmonary embolism ([facility]) Shortness of breath Visual impairment stigmatism PAST [...] the morning and 50 mg before bedtime., Disp:, Rfl: cholecalciferol, vitamin D3, 50,000 units tablet, [...] the most recent lab values available in [facility] at the time ofthe office visit and additional labs may have been drawn since that time. ASSESSMENT / DIAGNOSIS: MORBID OBESITY/HYPERTENSION PLAN: Shira Jett is scheduled for Davinci Bypass Gastric Bonnie En Y on 04/23/[address] Manzo. MARCEL Louis 04/15/24 1001 documented in this encounterOhio [facility]08[facility]2024 Instructions* Patient Instructions* Melanie Garcia RN - 04/15/2024 8:30 AM EDT Your surgery/procedure is scheduled at [facility] on at 9:30 am Arrival Time 7:30 am [facility] Address: [address] [place] [address] in [address]ing lot located on [facility]. Report to the Entrance B. Check in at the information desk the surgery. The waiting room located on the second floor. If you have any questions prior to surgery, please call Pre-Admission Clinic at [phone] between 7:30 am and 4:30 pm Sunday through Sunday. If you have questions the morning of surgery, please call the Pre-op Department at [phone]. Notify your SURGEON if you develop any [...] specifically instructed by your surgeon to stop. STOPtaking all herbal products/teas one week prior to [...] piercings ,hair extensions that contain metal, nail tamazight, make-up, and contact lens. You may brush [...] items and leave them in the car untilyou are taken to your room after surgery. [...] following some types of surgeries involving the eyes,ears, sinuses and throat. Always follow your doctor's [...] RIGHTS AND RESPONSIBILITIES As a patient at [facility], you have the right to: Receive medical care and be informed of who is taking care of you Be treated with dignity and respect Have a family member/business office representative of choice and your physician notified of your admission Receive information and actively participate in decisions about your care and treatment Refuse care, treatment and services Decide who may provide your support and speak for you Access mandaen and spiritual services Participate in ethical issues [...] of hospital charges and payment methods Patient/patient business office representative responsibilities are to: Provide information about [...] Germs live on your skin. This special soapwill help lower the amount of germs so [...] skin to hard. Be sure to wash thearea of your surgery very well. If showering, [...] surgery in clean clothes. 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 Overall Financial Resource Strain (CARDIA) Difficulty [...] MD Referring Physician: Riddhi Plata MD [address] [place] [address] documented in this encounterOhio State University [facility]07-03-2024 Miscellaneous Notes* Telephone Encounter - Anne Ruiz CMA - 03/12/2024 9:12 AM EDT Called patient to remind them to bring their most current copy of their medication list with them to their appt. Patient verbalizes understanding. documented in this encounterOhio State University [facility]07-03-2024 Telephone encounter Note* Telephone Encounter - Anne Ruiz CMA - 03/12/2024 9:12 AM EDT Called patient to remind them to bring their most current copy of their medication list with them to their appt. Patient verbalizes understanding. [facility]06-27-2024 History of Present illness Narrative* Jenny Moise RD - 03/06/2024 1:30 PM EDT Bariatric Medical Nutrition Therapy Nutritional Assessment/Education Session [...] yogurt, strawberries and protein granola Protein shake [facility]: Rice and crowder burrito Beverage Intake: water Physical Activity: lifting and walking with working 20 hours per week Shira has been focusing her meals on protein. Discussed healthier choices at [facility]. Bariatric Medical Nutrition Therapy Goal Summary [...] never (Ran out but will get more FlSoldsietone's vitamins) Sip liquids. Drink 64 ounces/day.: 100% [...] all discussed has been provided within the [facility] Bariatric Guide. My contact name and number provided if questions or concerns arise. Nutrition Monitoring: To follow up in 1 month to show progress towards goals. Start time: 1316 End time: 1329 documented in this encounterOhio State University [facility]06-27-2024 Instructions* Patient Instructions* Jenny Moise RD - 03/06/2024 1:30 PM EDT [facility]. If you re looking for general health and wellness resources, please visit [email or web address]. documented in this encounterOhio State University [facility]05-30-2024 History of Present illness Narrative* Jenny Moise RD - 02/07/2024 1:30 PM EDT Bariatric Medical Nutrition Therapy Nutritional Assessment/Education Session [...] Physical Activity: walking the zoo, went to [place] for vacation and walked [facility] the [facility] and active with work Bariatric Medical Nutrition [...] 1330 End time: 1348 documented in this encounterSouthview [facility] Center JumpStart [id number] Instructions* Patient Instructions* Jenny Moise RD - 02/07/2024 1:30 PM EDT Read the [facility] Bariatric Guide. If you re looking for general health and wellness resources, please visit [email or web address]. documented in this encounterOhio State University [facility]04-24-2024 History of Present illness Narrative* Jenny Moise RD - 01/02/2024 12:30 PM EDT Bariatric Medical Nutrition Therapy Nutritional Assessment/Education Session [...] Recall: Breakfast Snack Lunch Snack Dinner Snack [place] with cheese and low fat sour cream [place]bbering cheese and low fat sour cream [place] cheese and low fat sour cream Beverage [...] 1208 End time: 1219 documented in this encounterCleveland Clinic Lutheran HospitalNavTech University Of [facility] [id number] Instructions* Patient Instructions* Jenny Moise RD - 01/02/2024 12:30 PM EDT Read the [facility] Bariatric Guide. If you re looking for general health and wellness resources, please visit [email or web address]. documented in this encounterCleveland Clinic Lutheran HospitalSterio.me [id number] History of Present illness Narrative* Aby Escobarfaina - 12/05/2023 1:55 PM EDT Patient visited the [facility] and received food on 12/05/23. Provided one time food bag today. Patient needs a referral. [facility] documented in this encounterOhio State University [facility]03-27-2024 History of Present illness Narrative* Jenny Moise, RD - 12/05/2023 1:30 PM EDT Bariatric Medical Nutrition Therapy Nutritional Assessment/Education Session #: 9 Shira Jett is a 28 y.o. female who presents for follow up medical nutritional therapy for weight loss surgery. Weight Change 12/05/2023 Weight: (!) 163.5 kg (360 lb 6.4 oz) Weight Change: up 1.4 pounds in 1 month Shira's lost his job, so she started working with [employer] and [employer]. She finds this has really increased her daily activity. She is drinking just water. But with lack of funds shehas been using up foods in her house. [...] all discussed has been provided [facility] the [facility]. My contact name and number provided if questions or concerns arise. Nutrition Monitoring: To follow up in 1 month to show progress towards goals. Start time: 1332 End time: 1355 documented in this encounterCleveland Clinic Lutheran HospitalSterio.me [id number] Instructions* Patient Instructions* Jenny Moise RD - 12/05/2023 1:30 PM EDT [facility]. If you re looking for general health and wellness resources, please visit [email or web address]. documented in this encounterCleveland Clinic Lutheran HospitalSterio.me [id number] History of Present illness Narrative* Jenny Moise RD - 11/08/2023 11:30 AM EST Bariatric Medical Nutrition Therapy Nutritional [...] (Chobani flip) Chicken stir chacon (birds eye) sahni peppers, pineapple, and rice Pot roast with [...] all discussed has been provided within the [facility] Bariatric Guide. My contact name and number provided if questions or concerns arise. Nutrition Monitoring: To follow up in 1 month to show progress towards goals. Start time: 1122 End time: 1138 documented in this encounterSouthview Medical Center [employer] [id number] Instructions* Patient Instructions* Jenny Moise RD - 11/08/2023 11:30 AM EST [facility]. If you re looking for general health and wellness resources, please visit [facility] [email or web address]. documented in this encounterSouthview Medical Center JumpStart [id number] Evaluation note* Diagnosis PONV (postoperative nausea and vomiting)- Primary Nausea with vomiting Unable to assess patient's smoking status within the last 12 months Constipation, unspecified constipation type Vitamin D deficiency Chronic RUQ pain Abdominal pain, right upper quadrant documented in this encounter [facility]01-31-2024 History of Present illness Narrative* Theodora Early [...] Patient presents with New Patient pre op intake clinician-ref from Tonia Manzo MD for pre op [...] apnea Pneumonia Preeclampsia, severe 11/23/2018 Pulmonary embolism ([facility]) Shortness of breath No data recorded No [...] Referring Physician: Tonia Manzo MD [address] [address] documented in this encounterOhio State University [facility]01-30-2024 History of Present illness Narrative* Jenny Moise, RD - 10/09/2023 11:00 AM EST Bariatric [...] 1045 End time: 1108 documented in this encounterBarre City HospitalSendUs01-30-2024 Instructions* Patient Instructions* Jenny Moise RD - 10/09/2023 11:00 AM EST Read the [facility] Bariatric Guide. If you re looking for general health and wellness resources, please visit [email or web address]. documented in this encounterBarre City HospitalSendUs01-30-2024 Miscellaneous Notes* Telephone Encounter - Anne Ruiz CMA - 10/09/2023 10:27 AM EST Called patient to remind them to bring their most current copy of their medication list with them to their appt. Patient verbalizes understanding. documented in this encounterCleveland Clinic Lutheran HospitalFieldView Solutions01-30-2024 Telephone encounter Note* Telephone Encounter - Anne Ruiz CMA - 10/09/2023 10:27 AM EST Called patient to remind them to bring their most current copy of their medication list with them to their appt. Patient verbalizes understanding. [facility] JumpStart [id number] History of Present illness Narrative* NEIL Mcgowan - 09/27/2023 11:45 AM EST Images from the original note were not included. * Jalyn Vidal DO - 09/27/2023 11:45 AM EST [facility] Pulmonary And Sleep Progress Note Patient - [...] Meds Medications Reviewed. Dr. Jalyn Vidal DO. [facility] Pulmonary & Critical Care Office: [phone] documented in this encounter[facility]12-28-2023 History of Present illness Narrative* Jenny Moise, RD - 09/06/2023 11:00 AM EST Bariatric [...] 1100 End time: 1119 documented in this encounterOhio [facility]12-28-2023 Instructions* Patient Instructions* Jenny Moise RD - 09/06/2023 11:00 AM EST Read the [facility] Bariatric Guide. If you re looking for general health and wellness resources, please visit [email or web address]. documented in this encounterOhio State [facility]02-24-2023 NoteOP Note OPERATION DATE: 11/03/2022 PROCEDURE: Diagnostic laparoscopy with removal of IUD. PREOPERATIVE DIAGNOSIS: Desires permanent sterilization, desires removal of IUD, multiparity. POSTOPERATIVE DIAGNOSIS: Desires permanent sterilization, desires removal of IUD, multiparity. ANESTHESIA: General. SURGEON: Bin Morales D.O. MICROWAVE REMOTE SENSING SCIENTIST: TIMOTEO Watson URINE OUTPUT: Yellow and clear. BLOOD LOSS: 5 mL. SPECIMEN: None. FINDINGS: Unable to perform procedure due to patient's extreme BMI and inadequate visualization. PROCEDURE: Patient was taken back to the operating room. She was given general anesthesia without difficulty. She was prepped and draped in the normal sterile fashion, [facility] The weighted speculum was placed in [...] was waken up and taken to recovery.[facility] [id number] Hospital Discharge instructions* Instructions* Tonia Wolfe PA-C - 12/05/2021 Follow outpatient tomorrow with doctor or by calling [phone] or [phone]. Return to ER immediately if symptoms worsen or persist. * Attachments The following attachments cannot be sent through Care Everywhere. * SOB (Shortness of Breath) (Gambian) documented in this caro [email or web address] Phone: 1([phone]) 328-270003-24-2022 History of Present illness Narrative* Sonu Morales - 12/01/2021 4:13 PM EDT CLINICAL PHARMACY NOTE: MEDS TO BEDS Total # of Prescriptions Filled: 1 The following medications were delivered to the patient: xarelto starter pack Additional Documentation: * Camelia Medina MD - 12/01/2021 8:44 AM EDT Images from the original note were not included. [facility] Office: [phone] Cem Jenkins DO, Cyrus Cannon DO, Dave Roberts DO, Ervin Laguna DO, Checo Metzger MD, Jesusita Magallanes MD, Michael Louis MD, Echo Payan MD, Britni Lau MD, Rui Obrien MD, Francesca Santillan MD, Isidro Cruz DO, Rudi Molina DO, Camelia Medina MD, Bonnie Verdugo DO, MD [place], Rashad Downing MD, Yifan Clements MD, Hamlet Jenkins DO, Suman Mclaughlin MD, Antonio Burr MD, Nevaeh Wisdom CNP, Violet Mojica CNP, Ysabel Steen CNP, Jami Heard, NAVYA, Timothy Hill, DEREK, Tayler Watts, DEREK, Grecia Chavez, DEREK, Shira Payne, DEREK, Sergio Steiner, DEREK, Alok Reese PA-C, Nilam Valdes, CORNELL, Oriana Montero, CORNELL, Krystina Gil, DEREK, Georgina Dale, DEREK, Stacy Velazquez, CHIP BIN CONVEYOR TENDER [facility] IN-PATIENT SERVICE [facility] Progress Note 12/01/2021 8:44 AM Name: Shira Leone Acct: [id number] Room: Day: 1 Admit Date: 11/30/2021 7:38 [...] Brief History: 26-year-old female recently delivered at [facility] around 11/24/2021 was transferred to [facility] for blood pressure management due to history [...] ending 12/01/21 0844 Labs: Hematology: Recent Labs 11/30/21202012/01/21 0009 12/01/21 0358 WBC 10.2 10.4 10.0 RBC 4.06 3.90* 3.86* HGB 10.8* 10.4* 10.2* HCT 35.0* 33.6* 33.3* MCV 86.2 86.2 86.3 MCH 26.6 26.7 26.4 MCHC 30.9 31.0 30.6 RDW 14.8* 14.8* 14.8* PLT 351 342 314 MPV 9.1 9.1 8.9 INR 1.1 1.3 -- DDIMER 1.73* -- -- Chemistry: Recent Labs 11/30/21202011/30/21202011/30/21220112/01/219 12/01/21357 NA 134* -- -- -- 137 K [...] in this interval not displayed. Recent Labs 11/30/21202012/01/2135712/01/21413 PROT 6.9 6.3* -- LABALBU 3.7 3.4* -- TSH -- 2.20 -- AST 15 16 -- ALT 31 28 -- LDH 171 -- -- ALKPHOS 102 93 -- BILITOT 0.21* 0.18* -- URICACID 8.0* -- -- POCGLU -- -- 91 ABG:No results found for: POCPH, PHART, PH, POCPCO2, CXX2IRK, PCO2, POCPO2, PO2ART, PO2, POCHCO3, MGU3DWJ, HCO3, NBEA, PBEA, BEART, BE, THGBART, THB, YME0CMX, ROPU4ZNU, E9CIVAQH, O2SAT, FIO2 No results found for: SPECIAL [...] were called by Dr. Ernie Gamino to CHIP BIN CONVEYOR TENDER Bandar Vaughan on 11/30/2021 at 10:54 p.m. hours. RECOMMENDATIONS: 1.3 cm incidental right thyroid nodule with heterogeneous and enlarged thyroid. Recommend thyroid US. Reference: J Am Sukhjinder Radiol. 2014;12(2): 143-50 CT CHEST PULMONARY EMBOLISM W CONTRAST [...] DVTs requiring what appears to be a [place] filter in place. Due to insurance patient started on Xarelto 2. Outpatient ultrasound for thyroid nodule 3. Morbid obesity encourage weight loss 4. Discharge planning. Did discuss with patient she has 2 children at home that she wants to take care of. Does have assistance with her mother 5. Outpatient follow-up with hematology 6. Camelia Medina MD 12/01/2021 8:44 AM * Afsaneh Oviedo RN - 12/01/2021 12:00 AM EDT Patient arrived to room 2041. Vitals obtained. Orders released. documented in this encounterTrinity [facility] Centerjslyhl Phone: 1(191) 914-877003-24-2022 Hospital Discharge instructions* Discharge Instr - Activity* [...] at most local grocery stores, pharmacies, and [employer]-stores. If you have any questions about your diet or nutrition, call the hospital and ask for the dietitian. * Attachments The following attachments cannot be sent through Care Everywhere. * Pulmonary Embolism (Gambian) * rivaroxaban (Gambian) * Blood Clots: Inpatient: Quick List (Gambian) * Blood Clots and : General Info (Gambian) documented in this [email or web address] Phone: 1(183) 973-878103-22-2022 History of Present illness Narrative* Milana Luong [...] and Sudden Syndrome were reviewed with recommendations. sleeping, back [...] patient Attending Physician: Dr. Reji Flores DO [employer]ress [employer] Foundation Sewer Resident 11/29/2021, 2:15 AM * Adeola Gupta [...] IV x4, 40 IV x2 (last @1724 3/20) S/p IV Hydralazine 10 mg x3 (last [...] patient Attending Physician: Dr. Candy Flores DO [employer] Sewer Resident 11/28/2021, 4:22 AM Date: 11/28/2021 Time: 7:32 PM Patient Name: Shira Leone Patient : [id number] Room/Bed: [address] [place], [place] [id number] Ad[facility] Date/Time: 11/26/2021 2:06 AM Attending Physician [...] patient Attending Physician: Dr. Mauricio Moore DO [employer] Sewer Resident 11/27/2021, 6:13 AM Attending Physician Statement [...] Pulse: 78 78 76 Resp: 16 16 Temp: 98.1 F (36.7 C) [...] Continue to monitor closely Brandie Moore DO [employer]er Resident 11/26/2021, 7:15 PM * Brandie Moore [...] 1/4 Left: 1/4 Clonus: absent Urine Output: 133mL/hr; Yellow urine [...] Continue to monitor closely Brandie Moore DO [employer] Sewer Resident 11/26/2021, 3:10 PM * Juliana Leyva [...] Pulse: 80 78 69 84 Resp: 16 18 16 16 Temp: TempSrc: SpO2: 98% Weight: [...] - Continue to monitor Juliana Leyva DO [employer]er Resident 11/26/2021, 10:02 AM * Jenifer Maki DO - 11/26/2021 8:51 AM EDT Obstetric/Gynecology Resident Interval Note Notified by RN of severe range blood pressures. Will treat with IV labetalol 20 mg and add Procardia 30 mg XL. Jenifer Maki DO JUKE[employer] COIN COLLECTOR Resident, PGY3 [place], [place] 11/26/2021, 8:51 AM * Juany Salmeron [...] ALT/AST 44/29>44.26, P/C 0.35 Juany Salmeron DO [employer]er Resident 11/26/2021, 6:54 AM documented in this [facility] Phone: [phone]) 698-313203-21-2022 Hospital Discharge instructions* Instructions* Mich Duran DO [...] most return to normal levels over the [place] [facility]. Take and record your blood pressure at [...] you have had preeclampsia, you have a jzojgt-rsmu-bqzgcyy risk of heart disease, stroke, and kidney [...] Where can you learn more? Go to [email or web address] and sign in to your [email or web address] account. Enter Q718 in the Search Health Information box to learn more about Learning About Preeclampsia After Childbirth. If you do not have an account, please click on the Sign Up Now link. Current as of: February 23, 2021 Content Version: 13. [employer] Player. Care instructions adapted under license by [employer]. If you have questions about a medical condition or this instruction, always ask your healthcare professional. [employer] disclaims any warranty or liability for your use of this information. documented in this [email or web address] Phone: evaluation note* Diagnosis Preeclampsia in period- Primary documented in this encounter [email or web address] Phone: evaluation note* Diagnosis Hx PP Pre E w/ SF- Primary Anemia Anemia, unspecified Depression/Anxiety Depressive disorder, not elsewhere classified Hx GDM Abnormal maternal glucose tolerance, complicating , childbirth, or the puerperium, unspecified as to episode of care FHx DM documented in this encounter [email or web address] Phone: evaluation note* Diagnosis Acute pulmonary embolism, unspecified pulmonary embolism type, unspecified whether acute cor pulmonale present ([facility]) Class 3 severe obesity due to excess calories with serious comorbidity and body mass index (BMI) of50.0 to 59.9 in adult (HCC) Thyroid nodule Nontoxic uninodular goiter documented in this encounter [email or web address] Phone: evalbgjxgh note* Diagnosis Shortness of breath- Primary documented in this encounter [email or web address] Phone: evaluation note* Diagnosis Acute cystitis with hematuria- Primary Dysuria documented in this encounter [facility] HealthcareEvaluation note* Diagnosis Non-recurrent acute serous otitis media of left ear- Primary Bariatric surgery status Vitamin D deficiency Iron deficiency anemia, unspecified iron deficiency anemia type documented in this encounter [facility] HealthcareEvaluation note* Diagnosis Influenza A- Primary Influenza with other respiratory manifestations Fever, unspecified fever cause documented in this encounter [facility] HealthcareEvaluation note* Diagnosis Pre-bariatric surgery nutrition evaluation- Primary Morbid obesity ([facility]) Morbid obesity documented in this encounter [facility] SystemEvaluation note* Diagnosis Pre-bariatric surgery nutrition evaluation- Primary Morbid obesity ([facility]) Morbid obesity documented in this encounter [facility] SystemEvaluation note* Diagnosis Preop testing- Primary Unspecified pre-operative examination documented in this encounter [facility] SystemEvaluation note* Diagnosis Mild intermittent asthma, unspecified whether complicated- Primary LUCIANO on CPAP documented in this encounter [facility] SystemEvaluation note* Diagnosis Pre-bariatric surgery nutrition evaluation- Primary Morbid obesity ([facility]) Morbid obesity documented in this encounter [facility] SystemEvaluation note* Diagnosis Preop testing- Primary Unspecified pre-operative examination LUCIANO on CPAP History of pulmonary embolism Personal history of venous thrombosis and embolism Class 2 severe obesity due to excess calories with serious comorbidity in adult, unspecified BMI ([facility]) Essential hypertension Unspecified essential hypertension documented in this encounter [facility] SystemEvaluation note* Diagnosis Pre-bariatric surgery nutrition evaluation- Primary Morbid obesity ([facility]) Morbid obesity documented in this encounter [facility] SystemEvaluation note* Diagnosis Pre-bariatric surgery nutrition evaluation- Primary Morbid obesity ([facility]) Morbid obesity documented in this encounter [facility] SystemEvaluation note* Diagnosis Preop cardiovascular exam- Primary Pre-operative cardiovascular examination documented in this encounter [facility] SystemEvaluation note* Diagnosis Preop testing- Primary Unspecified pre-operative examination documented in this encounter [facility] SystemEvaluation note* Diagnosis Pre-op testing- Primary Unspecified pre-operative examination documented in this encounter [facility] SystemEvaluation note* Diagnosis Constipation, unspecified constipation type- Primary documented in this encounter [facility] SystemEvaluation note* Diagnosis Class 3 severe obesity with body mass index (BMI) of 60.0 to 69.9 in adult ([facility] Primary Class 3 severe obesity due to excess calories with serious comorbidity and body mass index (BMI) of60.0 to 69.9 in adult ([facility]) History of pulmonary embolism Personal history of venous thrombosis and embolism Acute post-operative pain documented in this encounter [facility] SystemEvaluation note* Diagnosis Dietary counseling and surveillance- Primary Morbid obesity ([facility]) Morbid obesity Malnutrition following gastrointestinal surgery Other and unspecified postsurgical nonabsorption Postsurgical malabsorption documented in this encounter [facility] SystemEvaluation note* Diagnosis LUCIANO on CPAP- Primary H/O gastric bypass Postoperative malabsorption Malnutrition following gastrointestinal surgery Other and unspecified postsurgical nonabsorption documented in this encounter [facility] SystemEvaluation note* Diagnosis Morbid obesity with BMI of 60.0-69.9, adult ([facility])- Primary Dietary counseling and surveillance- Primary Malnutrition following gastrointestinal surgery Other and unspecified postsurgical nonabsorption Postsurgical malabsorption H/O gastric bypass documented in this encounter [facility] SystemEvaluation note* Diagnosis Dietary counseling and surveillance- Primary Malnutrition following gastrointestinal surgery Other and unspecified postsurgical nonabsorption Postsurgical malabsorption H/O gastric bypass documented in this encounter [facility] SystemEvaluation note* Diagnosis Malnutrition following gastrointestinal surgery- Primary Other and unspecified postsurgical nonabsorption Postsurgical malabsorption H/O gastric bypass B12 deficiency documented in this encounter [facility] SystemEvaluation note* Diagnosis Malnutrition following gastrointestinal surgery- Primary Other and unspecified postsurgical nonabsorption Postsurgical malabsorption H/O gastric bypass History of anemia Personal history of diseases of blood and blood-forming organs documented in this encounter [facility] SystemEvaluation note* Diagnosis History of Bonnie-en-Y gastric bypass- Primary Postsurgical malabsorption Malnutrition following gastrointestinal surgery Other and unspecified postsurgical nonabsorption History of anemia Personal history of diseases of blood and blood-forming organs B12 deficiency [facility]* Diagnosis Missed menses , unspecified gestational age ([facility]) Encounter for supervision of normal first in first trimester ([facility]) Nausea Nausea alone documented in this encounter [facility] HealthcareEvaluation note* Diagnosis Second trimester ([facility]) state, incidental 14 weeks gestation of ([facility]) Primary hypertension Unspecified essential hypertension H/O gastric bypass History of diet controlled gestational diabetes mellitus (GDM) Diabetes mellitus screening Screening for diabetes mellitus documented in this encounter [facility] HealthcareEvaluation note* Diagnosis Well woman exam with routine gynecological exam Routine gynecological examination Screening, , for anatomic survey ([facility]) Encounter for anatomic survey Second trimester ([facility]) state, incidental 17 weeks gestation of ([facility]) Vaginal discharge Leukorrhea, not specified as infective STD exposure documented in this encounter [facility] HealthcareEvaluation note* Diagnosis Anxiety Anxiety state, unspecified documented in this encounter [facility] HealthcareEvaluation note* Diagnosis History of maternal pulmonary embolus- Primary Personal history of venous thrombosis and embolism 20 weeks gestation of Chronic hypertension affecting History of pre-eclampsia in prior , currently in second trimester History of gestational diabetes in prior , currently in second trimester History of prediabetes Bariatric surgery status complicating , second trimester Severe obesity due to excess calories affecting , antepartum ([facility]) Obstructive sleep apnea Obstructive sleep apnea (adult) (pediatric) History of gestational diabetes in prior , currently with other poor obstetric history Depression affecting Anxiety disorder affecting , antepartum documented in this encounter [facility] SystemEvaluation note* Diagnosis 20 weeks gestation of - Primary Chronic hypertension affecting History of pre-eclampsia in prior , currently in second trimester History of gestational diabetes in prior , currently in second trimester History of prediabetes Bariatric surgery status complicating , second trimester Severe obesity due to excess calories affecting , antepartum ([facility]) History of maternal pulmonary embolus Personal history of venous thrombosis and embolism Obstructive sleep apnea Obstructive sleep apnea (adult) (pediatric) History of gestational diabetes in prior , currently with other poor obstetric history Depression affecting Anxiety disorder affecting , antepartum documented in this encounter [facility] SystemEvaluation note* Diagnosis History of Bonnie-en-Y gastric bypass Postsurgical malabsorption Malnutrition following gastrointestinal surgery Other and unspecified postsurgical nonabsorption Folate deficiency Other B-complex deficiencies Iron deficiency Disorders of iron metabolism documented in this encounter [facility] SystemEvaluation note* Diagnosis 21 weeks gestation of ([facility]) Well woman exam Routine general medical examination at a health care facility Second trimester ([facility]) state, incidental Screen for STD (sexually transmitted disease) Screening examination for venereal disease Well woman exam with routine gynecological exam Routine gynecological examination Diabetes mellitus screening Screening for diabetes mellitus Iron deficiency anemia, unspecified iron deficiency anemia type documented in this encounter [facility] HealthcareEvaluation note* Diagnosis Gallstones and inflammation of gallbladder without obstruction- Primary Calculus of gallbladder with acute cholecystitis, without mention of obstruction Second trimester ([facility]) state, incidental 23 weeks gestation of ([facility]) History of diet controlled gestational diabetes mellitus (GDM) Preeclampsia in period ([facility]) History of pulmonary embolism Personal history of venous thrombosis and embolism Primary hypertension Unspecified essential hypertension Diabetes mellitus screening Screening for diabetes mellitus documented in this encounter [facility] HealthcareEvaluation note* Diagnosis History of gestational diabetes in prior , currently in second trimester- Primary History of prediabetes History of gestational diabetes in prior , currently with other poor obstetric history documented [facility] this encounter [facility] Discharge instructionsNot on filedocumented in this encounterProMedior Health SystemInstructionsNot on filedocumented in this encounterProMedica [...] encounterProMedica Health SystemInstructionsNot on filedocumented in this encounterProNoland Hospital Tuscal[facility] Health SystemInstructionsNot on filedocumented in this encounterProNoland Hospital Tuscaloosa Health SystemInstructionsNot on filedocumented in this encounterProNoland Hospital Tuscal[facility] Health SystemInstructionsNot on filedocumented in this encounterProLakehealth [facility] SystemInstructionsNot on filedocumented in this encounterProLakehealth Beachwood Medical Center SystemReason for visit Narrative* Consultation (Routine) - Pending ReviewSpecialtyDiagnoses / ProceduresReferred By Contact Referred To ContactNutrition Diagnoses Morbid obesity (CMS-HCC) Pre-bariatric surgery nutrition evaluation Preop testing Tonia Manzo MD [address] [facility], [place] [address] Referral IDStatusReasonStgreat neck DateExpiration DateVisits RequestedVisits [id number] Review Specialty Services Required / [facility] CenterReason for visit Narrative* Consultation (Routine) - Pending ReviewSpecialtyDiagnoses / ProceduresReferred By ContactReferred To ContactNutrition Diagnoses Malnutrition following gastrointestinal surgery Postsurgical malabsorption Tonia Manzo MD [address] [facility], [address] [address] Referral IDStatusReasonStgreat neck DateExpiration DateVisits RequestedVisits [id number] Review Specialty Services Required [facility] Summary Purpose Family History No Family History Records FoundNo Family History Records FoundNo Family History Records FoundNo Family History Records FoundNo Family History Records FoundNo Family History Records FoundNo Family History Records FoundNo Family History Records Found Advance Directives No Advanced Directives Records FoundLatest Code Status on File Code StatusDate ActivatedDate InactivatedCommentsFull Code11/26/2021 6:26 AMCode StatusDate ActivatedDate InactivatedCommentsFull Code11/30/2021 11:58 PMFull Code 11/26/2021 6:26 AM11/29/2021 1:42 PMCode StatusDate ActivatedDate Inactivated CommentsFull Code11/30/2021 11:58 PM12/01/2021 6:28 PMCode StatusDate Activated Date InactivatedCommentsFull Code07/30/2022 11:42 PM07/31/2022 2:48 PMCode StatusDate ActivatedDate InactivatedCommentsFull Code11/24/2018 10:44 PM11/27/2018 4:48 PMDate ActivatedDate NmhqcekhuklYhuflzny73/20/2022 11:42 PM07/31/2022 2:48 PMDate ActivatedDate InactivatedComments11/24/2018 10:44 PM11/27/2018 4:48 PMCode StatusDate ActivatedDate InactivatedCommentsFull Code07/30/2022 11:42 PM 07/31/2022 2:48 PMCode StatusDate ActivatedDate InactivatedCommentsFull Code 11/24/2018 10:44 PM11/27/2018 4:48 PMDate ActivatedDate InactivatedComments 04/23/2024 11:06 AM04/24/2024 4:47 PMDate ActivatedDate InactivatedComments 07/30/2022 11:42 PM07/31/2022 2:48 PMDate ActivatedDate InactivatedComments 11/24/2018 10:44 PM11/27/2018 4:48 PMDate ActivatedDate InactivatedComments 04/23/2024 11:06 AM04/24/2024 4:47 PMDate ActivatedDate InactivatedComments 07/30/2022 11:42 PM07/31/2022 2:48 PMDate ActivatedDate InactivatedComments 11/24/2018 10:44 PM11/27/2018 4:48 PMDate ActivatedDate InactivatedComments 06/23/2025 9:38 AM06/23/2025 11:46 AMDate ActivatedDate InactivatedComments 04/23/2024 11:06 AM04/24/2024 4:47 PMDate ActivatedDate InactivatedComments 07/30/2022 11:42 PM07/31/2022 2:48 PMDate ActivatedDate InactivatedComments 11/24/2018 10:44 PM11/27/2018 4:48 PM Reason for Referral SpecialtyDiagnoses / ProceduresReferred By ContactReferred To Contact Procedures Discharge Follow-Up Moriah Guthrie PA-C [address] [address] Referral IDStatusReasonStart DateExpiration DateVisits RequestedVisits [id number] / ProceduresReferred By ContactReferred To Contact Procedures No dressing needed Moriah Guthrie PA-C [address] [address] Referral IDStatusReasonStart DateExpiration DateVisits RequestedVisits [id number] / ProceduresReferred By ContactReferred To Contact Procedures Hygiene Moriah Guthrie PA-C [address] [address] Referral IDStatusReasonStart DateExpiration DateVisits RequestedVisits [id number] [id number] / ProceduresReferred By ContactReferred To Contact Procedures Adult diet Moriah Guthrie PA-C [address] [address] Referral IDStatusReasonStart DateExpiration DateVisits RequestedVisits [id number] Review Additional Source Comments INFORMATION SOURCE (unrecogn ized section and content) DATE CREATED AUTHOR 01/10/2019 [facility] DATE CREATED AUTHOR AUTHOR'S ORGANIZ ATION 12/06/2021 [facility] DATE CREATED AUTHOR AUTHOR'S ORGANIZ ATION 01/16/2022 [facility] DATE CREATED AUTHOR AUTHOR'S ORGANIZ ATION 11/16/2022 [facility] DATE CREATED AUTHOR AUTHOR'S ORGANIZ ATION 09/30/2023 [facility] DATE CREATED AUTHOR AUTHOR'S ORGANIZ ATION 06/12/2025 [facility] DATE CREATED AUTHOR AUTHOR'S ORGANIZ ATION 06/24/2025 [facility] DATE CREATED AUTHOR AUTHOR'S ORGANIZ ATION 06/26/2025 [facility] Reason for Visit (unrecogniz ed section and content) ReasonCommentsChest Painpressure in center of chest. gave on 11/21/21. Hypertensionon 200 mg labetalol daily.ReasonCommentsHypertensionSpecialty Diagnoses / ProceduresReferred By ContactReferred To Contact Diagnoses Preeclampsia in period Isidro Chester DO [address] [facility] [address] [place] [address] Referral IDStatusRetwo [facility] hospitalStart DateExpiration DateVisits RequestedVisits [id number] Painonset this morning, was admitted for preeclampsiaShortness of BreathSpecialtyDiagnoses / ProceduresReferred By ContactReferred To Contact Diagnoses Right pulmonary embolus (HCC) Acute pulmonary embolism, unspecified pulmonary embolism type, unspecified whether acute cor pulmonale present (HCC) Camelia Medina MD [address] [place] [address] [facility] [id number] [place] [address] Referral IDStatusReasonStart DateExpiration DateVisits RequestedVisits [id number] of Breathrecently dx with pulmonary embolism. pt was d/c and still feels sobReasonCommentsUTIPatient presents today for urinary frequency and urgency for 3 days.ReasonCommentsEaracheBilateral ear pain. Patient states that she has pressure and ringing in her ears. Patient states that the left is worse. Patient went to Urgent Care on 08/19 and got azithromycin and prednisone, but it has not helped.ReasonCommentsURIReason CommentsNutrition CounselingSpecialtyDiagnoses / ProceduresReferred By Contact Referred To ContactNutrition Diagnoses Morbid obesity ([facility]) Pre-bariatric surgery nutrition evaluation Preop testing [facility]onia Manzo [facility] [address] [facility] [place] [address] [place] [address] Referral IDStatusReasonStart DateExpiration DateVisits RequestedVisits [id number] Review Specialty Services Required [id number] ApneaDME: MSCComplianceAsthmaReason CommentsNew Patientpre op intake clinician-ref from Tonia Manzo MD for pre op for bariatric surgery-patient has no date/time/place set for surgery-never seen cardiology-no covid-no cardiac devices-echo[facility]abs [facility]-sched wt pt SpecialtyDiagnoses / ProceduresReferred By ContactReferred To ContactCardiology Diagnoses Preop testing Tonia Manzo MD [address] , [place] [address] [place] [address] [facility] [address] [place] [address] Referral IDStatusReasonStart DateExpiration DateVisits RequestedVisits [id number] Review Specialty Services Required 1Referral IDStatusReasonStart DateExpiration DateVisits RequestedVisits [id number] Specialty Services Required [id number]-tt ExamPreop Bariatric surg Dr. Shirley ReasonCommentsConsultSign consentSpecialtyDiagnoses / ProceduresReferred By ContactReferred To Contact Diagnoses MORBID OBESITY/HYPERTENSION Procedures CO LAP GASTRIC BYPASS/BONNIE-EN-Y DAVINCI DV5 BYPASS GASTRIC BONNIE-EN Y Tonia Manzo MD [address] [facility] [place] [address] [place] [address] Referral IDStatusReasonStart DateExpiration DateVisits RequestedVisits [id number] DateCommentsbloody mocus4ReasonComments Post-op1 week RYGB; feels tired;40 ounces of fluids; 2 protein shakes a day, struggles with the evening protein shakeReasonCommentsPatient EducationPre op bariatric surgery education [id number] lessonReasonComments Follow-upLATE 6 MONTH bypass [facility] 04/23/[id number] INJECTIONReasonComments Routine VisitReasonCommentsMed RefillReasonCommentsHx PEHx Gastric BypassAnemiaAsthmaHx GDM Scheduled Active and Recently Administ ered Medications (unrecognized section and content) Medication Order// acetaminophen (TYLENOL) tablet 1,000 mg (COMPLETED) 1,000 mg, Oral, ONCE, On Sun11/25/21 at 2330, For 1 dose, Maximum dose of acetaminophen is 4000 mg from all sources in 24 hours. * 2324 (Given - Provider: Sabina Glover RN) hydrALAZINE (APRESOLINE) injection 10 mg (COMPLETED) 10 mg, IntraVENous, ONCE, On Sun11/25/21 at 2130, For 1 dose * 2130 (Given - Provider: Mark Aguillon RN) magnesium sulfate 2000 mg in 50 mL IVPB premix 2,000 mg/hr (50 mL/hr), IntraVENous, Administer over 1 Hours, EVERY HOUR, First dose on Sun11/25/21at 2215, For 48 hours, Pre-Infusion: Assess baseline [...] 4000 mg 6 grams = 6000 mg 20grams = 20,000 mg * 2237 (New Bag - Provider: Sabina Glover RN) * 0020 (New Bag - Provider: Sabina Glover RN) * 0021 (Stopped - Provider: Sabina Glover RN) * 0100 (Due) * 0120 (New Bag - Provider: Sabina Glover RN) * 0157 (Stopped - Provider: Sabina Glover RN) * 0159 (Due: Stopped - Provider: Sabina Glover RN) * 0200 (Due) * 0300 (Due) * 0400 (Due) * 0500 (Due) * 0600 (Due) * 0700 (Due) * 0800 (Due) * 0900 (Due) * 1000 (Due) * 1100 (Due) * 1200 (Due) * 1300 (Due) * 1400 (Due) * 1500 (Due) * 1600 (Due) * 1700 (Due) * 1800 (Due) * 1900 (Due) * 2000 (Due) * 2100 (Due) * 2200 (Due) * 2300 (Due) magnesium sulfate 2000 mg in dextrose [...] 6000 mg 20 grams = 20,000 mg * 2211 (New Bag - Provider: Sabina Glover, LEANDRO) * 2223 (Stopped - Provider: Sabina Glover, LEANDRO) * 2226 (New Bag - Provider: Sabina Glover, LEANDRO) * 2240 (Stopped - Provider: Sabina Glover RN) Medication Order// calcium gluconate 10 % injection 1,000 mg 1,000 mg, IntraVENous, PRN, For suspected magnesium toxicity or for respiratory rate less than 6 per minute., Starting on Sun11/25/21 at 2142, Administer slow IV push over 5 minutes. Medication Order// citalopram (CELEXA) tablet 10 mg 10 mg, Oral, DAILY, First dose on Sun11/27/21 at 0900 * 0939 (Given - Provider: Gale Saravia RN) * 0847 (Given - Provider: Liyah Asher RN) * 0900 (Given - Provider: Nilam Montes RN) ferrous sulfate (FE TABS 325) EC tablet 325 mg 325 mg, Oral, DAILY WITH BREAKFAST, First dose on Sun11/26/21 at 0800 * 0938 (Given - Provider: Gale Saravia RN) * 0847 (Given - Provider: Liyah Asher RN) * 0759 (Given - Provider: Nilam Montes RN) hydrALAZINE (APRESOLINE) injection 10 mg (COMPLETED) 10 mg, IntraVENous, ONCE, On 11/27/21 at 2000, For 1 dose * 1938 (Given - Provider: Radha Correa RN) hydrALAZINE (APRESOLINE) injection 10 mg (COMPLETED) 10 mg, IntraVENous, ONCE, On Sun11/28/21 at 0145, For 1 dose * 0129 (Given - Provider: May Malone RN) hydrALAZINE (APRESOLINE) injection 10 mg (COMPLETED) 10 mg, IntraVENous, ONCE, On Sun11/28/21 at 0230, For 1 dose * 0226 (Given - Provider: May Malone, LEANDRO) hydrALAZINE (APRESOLINE) injection 10 mg (COMPLETED) 10 mg, IntraVENous, ONCE, On 11/28/21 at 1600, For 1 dose * 1539 (Given - Provider: Liyah Asher, LEANDRO) labetalol (NORMODYNE) tablet 400 mg (CANCELED) 400 mg, Oral, EVERY 8 HOURS, First dose on 11/26/21 at 0415 * 0409 (Given - Provider: Soco Navarro, LEANDRO) * 1258 (Given - Provider: Gale Saravia, LEANDRO) labetalol (NORMODYNE) tablet 600 mg (CANCELED) 600 mg, Oral, EVERY 8 HOURS, First dose (after last modification) on 11/27/21 at 2000, STAT * 1846 (Given by Other - Provider: Radha Correa RN - Comment: Given by day shift nurse) * 0407 (Given - Provider: May Malone, LEANDRO) * 1159 (Given - Provider: Liyah Asher, LEANDRO) labetalol (NORMODYNE) tablet 600 mg 600 mg, Oral, EVERY 6 HOURS, First dose (after last modification) on Sun11/28/21 at 1600, STAT * 1539 (Given - Provider: Liyah Asher, LEANDRO) * 2157 (Given - Provider: Emma Borja, LEANDRO) * 0346 (Given - Provider: Emma Borja, LEANDRO) * 0956 (Given - Provider: Nilam Montes RN) * 1600 (Due) * 2200 (Due) labetalol (NORMODYNE;TRANDATE) injection 20 mg (COMPLETED) 20 mg, IntraVENous, ONCE, On 11/27/21 at 1100, For 1 dose * 1041 (Given - Provider: Gale Saravia, LEANDRO) labetalol (NORMODYNE;TRANDATE) injection 20 mg (COMPLETED) 20 mg, IntraVENous, ONCE, On 11/27/21 at 1730, For 1 dose * 1712 (Given - Provider: Gale Saravia, LEANDRO) labetalol (NORMODYNE;TRANDATE) injection 20 mg (COMPLETED) 20 mg, IntraVENous, ONCE, On 11/28/21 at 0315, For 1 dose * 0254 (Given - Provider: May Malone RN) NIFEdipine (PROCARDIA XL) extended release tablet 30 mg (CANCELED) 30 mg, Oral, DAILY, First dose on 11/27/21 at 0900, Do not crush or break. * 0939 (Given - Provider: Gale Saravia RN) NIFEdipine (PROCARDIA XL) extended release tablet 30 mg (COMPLETED) 30 mg, Oral, ONCE, On 11/27/21 at 2100, For 1 dose, Do not crush or break. * 2053 (Given - Provider: Radha Correa, LEANDRO) NIFEdipine (PROCARDIA XL) extended release tablet 90 mg 90 mg, Oral, DAILY, First dose on 11/28/21 at 0900, Do not crush or break. * 0810 (Given - Provider: Liyah Asher RN) * 0900 (Given - Provider: Nilam Montes RN) vitamin plus iron 29-1 MG tablet 1 tablet 1 tablet, Oral, DAILY, First dose on 11/26/21 at 0900 * 0938 (Given - Provider: Gale Saravia RN) * 0847 (Given - Provider: Liyah Asher, LEANDRO) * 0900 (Given - Provider: Nilam Montes RN) [...] Midline or Central Line = 20 mL/lumen * 1053 (Given - Provider: Gale Saravia RN) * 2054 (Given - Provider: Radha Correa, LEANDRO) * 0848 (Given - Provider: Liyah Asher RN) * 2111 (Given - Provider: Emma Borja, LEANDRO) * 0902 (Given - Provider: Nilam Montes, RN) * 2100 (Due) Medication Order// 0.9 % sodium chloride infusion 25 mL, [...] mg from all sources in 24 hours. * 0129 (Given - Provider: May Malone RN) * 0815 (Given - Provider: Liyah Asher RN) * 2111 (Given - Provider: Emma Borja RN) * 0713 (Given - Provider: Nilam Montes, LEANDRO) [...] Itching, Sleep, Starting on 11/28/21 at 0422 * 0424 (Given - Provider: May Malone, LEANDRO) hydrOXYzine (ATARAX) tablet 25 mg 25 mg, Oral, 3 TIMES DAILY PRN, Itching, Anxiety, Starting on 11/26/21 at 2324 * 0013 (Given - Provider: Soco Navarro RN) hydrOXYzine (ATARAX) tablet 25 mg 25 mg, Oral, 3 TIMES DAILY PRN, Itching, Anxiety, Starting on 11/27/21 at 2038 * 2054 (Given - Provider: Radha Correa RN) ibuprofen (ADVIL;MOTRIN) tablet 600 mg 600 mg, Oral, EVERY 6 HOURS PRN, Pain Mild (1-3), Starting on 11/26/21 at 0401, Do not crush or chew. * 0626 (Given - Provider: May Malone RN) * 1400 (Given - Provider: Liyah Asher RN) melatonin tablet 5 mg 5 mg, Oral, NIGHTLY PRN, Sleep, Starting on 11/28/21 at 2100 * 2200 (Given - Provider: Emma Broja RN) sodium chloride flush 0.9 % injection 5-40 mL 5-40 mL, IntraVENous, PRN, Line Care, After every IV line use, Starting on 11/26/21 at 0623, ForLine Patency: Peripheral IV = 5 mL; Midline or Central Line = 10 mL/lumen. If following IV push medication, administer flush at same rate as the IV push. Flush volume is determined by type of infusion therapy being given. For non-viscous solutions use: Peripheral IV = 5 mL Midline or Central Line =10 mL/lumen For viscous solutions (i.e. blood components, parenteral nutrition, contrast media, or after obtaining blood sample) use: Peripheral IV = 10 mL Midline or Central Line = 20 mL/lumen * 0939 (Given - Provider: Gale Saravia RN) Medication Order// labetalol (NORMODYNE;TRANDATE) 5 MG/ML injection (COMPLETED) Starting on Sun11/27/21 at 1722, For 1 dose, Gale Saravia: cabinet override * 1724 (Given - Provider: Gale Saravia RN) Medication Order// 0.9 % sodium chloride bolus (COMPLETED) 1,000 mL (7.9 mL/kg), IntraVENous, at 1,000 mL/hr, Administer over 1 Hours, ONCE, On Sun11/30/21 [id number], For 1 dose * 2026 (New Bag - Provider: Casandra Maddox RN) * 2126 (Stopped - Provider: Casandra Maddox RN) 0.9 % sodium chloride bolus (COMPLETED) 80 mL (0.632 mL/kg), IntraVENous, at 80 mL/hr, Administer over 1 Hours, ONCE, On Sun11/30/21 at 2145, For 1 dose * 2213 (New Bag - Provider: Juhi Yuan) * 2217 (Stopped - Provider: Juhi Yuan) apixaban (ELIQUIS) tablet 10 mg (CANCELED) 10 mg, Oral, 2 TIMES DAILY, 14 doses, First dose on Sun12/01/21 at 0900, Last dose on Sun12/07/21 at 2100, ANTICOAGULANT * 0905 (Given - Provider: Stacy Conley, LEANDRO) aspirin EC tablet 325 mg 325 mg, Oral, DAILY, First dose on Sun12/01/21 at 0015, Until Discontinued, Please give ASA dose upon admission if not done in ER then DAILY * 0124 (Given - Provider: Afsaneh Oviedo, LEANDRO) citalopram (CELEXA) tablet 10 mg 10 mg, Oral, DAILY, First dose on Sun12/01/21 at 0900, Until Discontinued * 0855 (Given - Provider: Stacy Conley RN) ferrous sulfate (FE TABS 325) EC tablet 325 mg 325 mg, Oral, DAILY WITH BREAKFAST, First dose on Sun12/01/21 at 0800, Until Discontinued * 0855 (Given - Provider: Stacy Conley RN) heparin (porcine) injection 10,000 Units (COMPLETED) 10,000 Units, IntraVENous, ONCE, 1 dose, On Sun11/30/21 at 2300, Initial one time bolus * 2323 (Given - Provider: Casandra Maddox RN) labetalol (NORMODYNE) tablet 600 mg 600 mg, Oral, 4 TIMES DAILY, First dose on Sun12/01/21 at 0015, Until Discontinued * 0124 (Given - Provider: Afsaneh Oviedo RN) * 0856 (Given - Provider: Stacy Conley RN) * 1238 (Not Given - Provider: Stacy Conley RN - Reason: Patient/family refused) * 1511 (Given - Provider: Stacy Conley RN) * 2100 (Due) morphine (PF) injection 2 mg (COMPLETED) 2 mg, IntraVENous, ONCE, 1 dose, On Sun11/30/21 at 2015, If oral and IV narcotics ordered, use oralfirst and only use IV if oral is ineffective or cannot take oral. Do Not give oral and IV within 1 hour of each other unless specifically ordered. * 2026 (Given - Provider: Casandra Maddox RN) NIFEdipine (PROCARDIA XL) extended release tablet 90 mg 90 mg, Oral, DAILY, First dose on [place] 12/01/21 at 0900, Until Discontinued, Do not crush or break. * 0855 (Given - Provider: Stacy Conley RN) ondansetron (ZOFRAN) injection 4 mg (COMPLETED) 4 mg, IntraVENous, ONCE, 1 dose, On Sun11/30/21 at 2014 * 2026 (Given - Provider: Casandra Maddox RN) rivaroxaban (XARELTO) tablet 15 mg(Linked Group 1) ANTICOAGULANT! Renal dose for NONVALVULAR A.FIB is 15 mg/day for CrCl 15-50 mL/min., 15 mg, Oral, 2TIMES DAILY WITH MEALS, 41 doses, First dose on Sun12/01/21 at 1700, Last dose on Sun12/21/21 at 1700, ANTICOAGULANT! Doses greater than 15 mg/day must be administered with food. * 1700 (Due) rivaroxaban (XARELTO) tablet 20 mg(Linked [...] dose on Sun12/01/21 at 0900, Until Discontinued, For Line Patency: Peripheral IV = 5 mL; Midline or Central Line = 10 mL/lumen.If following IV push medication, administer flush at same rate as the IV push. Flush volume is determined by type of infusion therapy being given. For non-viscous solutions use: Peripheral IV = 5 mL Midline or Central Line = 10 mL/lumen For viscous solutions (i.e. blood components, parenteral nutrition, contrast media, or after obtaining blood sample) use: Peripheral IV = 10 mL Midline or CentralLine = 20 mL/lumen * 0900 (Not Given - Provider: Stacy Conley RN - Reason: IV Fluid Infusing) * 2100 (Due) Medication Order/ heparin 25,000 units in dextrose 5% 250 [...] bolus x 1 (max 10,000 units), then 18units/kg/hr (max initial rate 2100 units/hr) = 16.6 units/kg/hr. Adjust infusion rate based on Anti-Xa results (target range 0.3-0.7). For titration purposes, continue to use the initial weight of 126.6 kg for adjustments. Anti-Xa < 0.1 Heparin 80 units/kg (max 10,000 units) bolus, then increaseinfusion by 4 units/kg/hr Anti-Xa 0.1 - 0.29 Heparin 40 units/kg (max 5,000 units) bolus, then increase infusion by 2 units/kg/hr Anti-Xa 0.3 - 0.7 No bolus No change in rate Anti-Xa 0.71-0.8 No bolus Decrease infusion by 1 units/kg/hr Anti-Xa 0.81 - 0.99 No bolus Decrease infusion by 2 units/kg/hrAnti-Xa 1 unit/mL or greater Hold heparin for 60 min , then decrease infusion by 3 units/kg/hr fromprevious rate (no bolus for restart) Check Anti-Xa 6 hours after initiation and 6 hours after everydose change. When Anti-Xa is within target range for two consecutive times, check Anti-Xa once daily. *80 units/kg bolus max= 10,000 units *40 units/kg bolus max= 5,000 units, (for bolus doses, use patient's current weight) * 2326 (New Bag - Provider: Casandra Maddox [...] bolus x 1 (max 10,000 units), then 18units/kg/hr (max initial rate 2100 units/hr) = 16.6 units/kg/hr. Adjust infusion rate based on Anti-Xa results (target range 0.3-0.7). For titration purposes, continue to use the initial weight of 126.6 kg for adjustments. Anti-Xa < 0.1 Heparin 80 units/kg (max 10,000 units) bolus, then increaseinfusion by 4 units/kg/hr Anti-Xa 0.1 - 0.29 Heparin 40 units/kg (max 5,000 units) bolus, then increase infusion by 2 units/kg/hr Anti-Xa 0.3 - 0.7 No bolus No change in rate Anti-Xa 0.71-0.8 No bolus Decrease infusion by 1 units/kg/hr Anti-Xa 0.81 - 0.99 No bolus Decrease infusion by 2 units/kg/hrAnti-Xa 1 unit/mL or greater Hold heparin for 60 min , then decrease infusion by 3 units/kg/hr fromprevious rate (no bolus for restart) Check Anti-Xa 6 hours after initiation and 6 hours after everydose change. When Anti-Xa is within target range for two consecutive times, check Anti-Xa once daily. *80 units/kg bolus max= 10,000 units *40 units/kg bolus max= 5,000 units, (for bolus doses, use patient's current weight) . * 0125 (Rate/Dose Verify - Provider: Afsaneh Oviedo RN) * 0730 (Rate/Dose Verify - Provider: Stacy Conley, LEANDRO) * 0853 (Stopped - Provider: Stacy Conley, LEANDRO) Medication Order// 0.9 % sodium chloride infusion 25 mL, [...] at 2140, Until Sun11/30/21 at 2213, Other * 2213 (Given - Provider: Juhi Yuan) magnesium [...] minutes and may repeat up to 3 dosesin 15 minutes. Do not crush or break. [...] Refer to IV replacement orders Recheck K levelin AM. Not for use in patients with CrCl less than 30 mL/min. potassium chloride 10 mEq/100 mL IVPB (Peripheral Line)(Linked Group 4) 10 mEq, IntraVENous, PRN, Starting on Sun11/30/21 at 2358, Until Discontinued, at 100 mL/hr, Potassium Replacement, K Lab Replacement Action 2.7-3.0 10 mEq IVPB x 6 doses (60 mEq Total) < 2.7 CALLPHYSICIAN and 10 mEq IVPB x 6 doses (60 mEq Total) Infuse at 10 mEq/hr Repeat Potassium lab 1 hour after final administration. Not for use in patients with CrCl less than 30 mL/min. sodium chloride flush 0.9 % injection 10 mL (CANCELED) 10 mL, IntraVENous, PRN, Starting on Sun11/30/21 at 2140, Until Sun12/01/21 at 0116, Line Care * 2213 (Given - Provider: Juhi Yuan) sodium chloride flush 0.9 % injection 10 mL 10 mL, IntraVENous, PRN, Starting on Sun11/30/21 at 2358, Until Discontinued, Line Care, After every IV line use Order Group 1: rivaroxaban (XARELTO) tablet 15 mgJump to med ANTICOAGULANT! Renal dose for NONVALVULAR A.FIB is 15 mg/day for CrCl 15-50 mL/min.
15 mg,Oral, 2 TIMES DAILY WITH MEALS, 41 doses, First dose on Sun12/01/21 at 1700, Last dose on Sun12/21/21 at 1700
ANTICOAGULANT! Doses greater than 15 mg/day must be administered with food.
Followed by rivaroxaban (XARELTO) tablet 20 mgJump to med ANTICOAGULANT! Renal dose for NONVALVULAR A.FIB is 15 mg/day for CrCl 15-50 mL/min.
20 mg,Oral, DAILY WITH DINNER, First dose on Sun12/22/21 [...] unable to tolerate oral tablet. K Lab & amp;nbsp; Replacement Action 3.1 to 3.5 &am p;nbsp; 40 mEq ORAL x 1 Under 3.1 &nbs p; Refer to IV replacement protocol Recheck K [...] patients with CrCl less than 30 mL/min.
Medication Order12/03/// HYDROcodone-acetaminophen (NORCO) 5-325 MG per tablet 1 tablet (COMPLETED) 1 tablet, Oral, ONCE, 1 dose, On Sun12/05/21 at 1600, Maximum dose of acetaminophen is 4000 mg fromall sources in 24 hours. * 1604 (Given - Provider: Leatha Larsen RN) Medication Order// acetaminophen (TYLENOL EXTRA STRENGTH) tablet 1,000 mg (COMPLETED) 1,000 mg, oral, Once, On Sun04/23/24 at 0800, For 1 dose, Pre-op * 0830 (Given - Provider: Essence Schulz, LEANDRO) aprepitant (EMEND) capsule 40 mg (COMPLETED) 40 mg, oral, Once, On Sun04/23/24 at 0800, For 1 dose, Pre-op * 0831 (Given - Provider: Essence Schulz RN) busPIRone (BUSPAR) tablet 15 mg 15 mg, oral, 2 times daily, First dose on Sun04/23/24 at 2100, Look-alike/sound-alike medication - verify indication for use. Avoid grapefruit juice. * 212 (Given - Provider: Macrina Armenta RN) * 0837 (Given - Provider: Olga Montana RN) ceFAZolin (ANCEF) 3,000 mg in sodium chloride 0.9 % 100 mL IVPB-MBP 3,000 mg, intravenous, at 200 mL/hr, Administer over 30 Minutes, Once, On Sun04/23/24 at 0845, For 1 dose, ADD-VANTAGE/MBP- Discard 24 hours after activating; dissolve drug prior to administration, Indication: Surgical prophylaxis * 0845 (Due) citalopram (CeleXA) tablet 20 mg 20 mg, oral, Nightly, First dose on Sun04/23/24 at 2200, Look-alike/sound-alike medication - verifyindication for use., Indications: anxiety with depression * 212 (Given - Provider: Macrina Armenta, LEANDRO) enoxaparin (LOVENOX) syringe 40 mg 40 mg, subcutaneous, Every 12 hours scheduled, First dose on Sun04/24/24 at 0600, BMI greater than 40 Look-alike/sound-alike medication - verify indication for use. * 0613 (Given - Provider: Macrina Armenta, LEANDRO) heparin (porcine) injection 5,000 Units (COMPLETED) 5,000 Units, subcutaneous, Once, On Sun04/23/24 at 0845, For 1 dose, Look-alike/sound-alike medication - verify indication for use. Observe for bleeding. * 0851 (Given - Provider: Essence Schulz RN) hyoscyamine sulfate (LEVSIN) tablet 125 mcg 125 mcg, sublingual, 4 times daily, First dose on Sun04/23/24 at 1200 * 1324 (Given - Provider: Marielos Crocker RN) * 1715 (Given - Provider: Staci Dey, LEANDRO) * 2125 (Given - Provider: Macrina Armenta, LEANDRO) * 0837 (Given - Provider: Olga Montana, LEANDRO) * 1310 (Given - Provider: Olga Montana, LEANDRO) ketorolac (TORADOL) injection 15 mg 15 mg, intravenous, Every 6 hours, First dose on Sun04/23/24 at 1500, For 5 days, Patients 65 yearsor older or weigh less than 50 kg. Hold for patients 80 or older. Maximum of 20 doses. Look-alike/sound-alike medication - verify indication for use. Duration of therapy is not to exceed 5 days. Maximum recommended dose + 120mg/24 hours. * 1444 (Given - Provider: Staci Dey RN) * 2125 (Given - Provider: Macrina Armenta, LEANDRO) * 0324 (Given - Provider: Macrina Armenta, LEANDRO) * 0837 (Given - Provider: Olga Montana, LEANDRO) lisinopriL (PRINIVIL,ZESTRIL) tablet 10 mg 10 mg, oral, Daily, First dose on Sun04/24/24 at 0900, Look-alike/sound-alike medication - verify indication for use. * 0837 (Given - Provider: Olga Montana, LEANDRO) pantoprazole (PROTONIX) EC tablet 40 mg 40 mg, oral, Daily, First dose on Sun04/23/24 at 1500, Look-alike/sound-alike medication - verify indication for use. If patient is receiving enteral feeding, consider alternative PPI or continue IV pantoprazole until the delayed-release tablet can be taken orally, Indication: GERD * 2125 (Given - Provider: Macrina Armenta, RN) * 0613 (Given - Provider: Macrina Armenta, RN) thiamine (B-1) 100 mg, folic acid (FOLVITE) 1 mg in sodium chloride 0.9 % 50 mL IVPB (COMPLETED) intravenous, at 102 mL/hr, Administer over 30 Minutes, Once, On Sun04/23/24 at 1130, For 1 dose, PACU (only), Look-alike/sound-alike medication - verify indication for use. * 1238 (New Bag - Provider: Marielos Crocker, RN) * 1308 (Stop Bag - Provider: Marielos Crocker, RN) Medication Order// lactated ringers infusion (CANCELED) 50 mL/hr, intravenous, Continuous, Starting on Sun04/23/24 at 0800, Pre-op, If fluid restriction isnot indicated, infuse at a rate up to 5 mL/kg/hr not to exceed the total replacement volume (2 ml/kg/hr) from the time NPO status was initiated. * 0833 (New Bag - Provider: Essence Schulz RN) * 2009 (Stop Bag - Provider: Macrina Armenta, LEANDRO) lactated ringers infusion 100 mL/hr, intravenous, Continuous, Starting on Sun04/23/24 at 1415 * 1444 (New Bag - Provider: Staci Dey, LEANDRO) * 1849 (Rate/Dose Verify - Provider: Staci Dey, LEANDRO) * 2009 (Rate/Dose Verify - Provider: Macrina Armenta, RN) * 2240 (Rate/Dose Verify - Provider: Macrina Armenta, RN) * 0012 (New Bag - Provider: Cherise Choudhury, LEANDRO) * 0955 (New Bag - Provider: Olga Montana, LEANDRO) Medication Order/// albuterol (PROVENTIL,VENTOLIN) nebulizer solution 2.5 mg 2.5 mg, nebulization, Every 6 hours PRN, wheezing, shortness of breath, Starting on Sun04/23/24 at 1412, Implement INPATIENT/ED Bronchodilator Clinical Practice Guidelines? Yes, Document: \[email or web address]\epic\[email or web address]_Reference\Orders\Respiratory Care Guidelines\CPG Bronchodilator 2020.pdf bupivacaine PF (MARCAINE) 0.5 % (5 mg/mL) injection (CANCELED) As needed, Starting on Sun04/23/24 at 0951, Intra-op * 0934 (Given - Provider: Tonia Manzo MD) [...] glucose less than 70 mg/dL and unconscious orNPO with IV access, Starting on Sun04/23/24 at [...] Look-alike/sound-alike medication - verify indication for use. * 1121 (Given - Provider: Marielos Crocker RN) * 1341 (Given - Provider: Marielos Crocker RN) glucagon HCL injection 1 mg 1 mg, intramuscular, As needed, low blood sugar, blood glucose less than 70 mg/dL and unconscious or NPO without IV access., Starting on Sun04/23/24 at 1412, If conscious and not NPO, immediately follow with meal tray or high protein (7Grams) snack if tray not available. If NPO, initiate IV 5% Dextr ose/Water at 100 mL/hr and contact prescriber for [...] nausea, vomiting, Starting on Sun04/23/24 at 1412, Administerover 2-5 minutes. oxyCODONE (ROXICODONE) immediate release tablet 10 mg (CANCELED)(Linked Group 1) 10 mg, oral, Every 4 hours PRN, severe pain - pain scale 7-10, Starting on Sun04/23/24 at 1058, PACU (only), Look-alike/sound-alike medication - verify indication for use. Immediate release. * 1323 (Given - Provider: Marielos Crocker RN) oxyCODONE-acetaminophen (PERCOCET) 5-325 mg per tablet 1 tablet 1 tablet, oral, Every 4 hours PRN, moderate pain - pain scale 4-6, Starting on Sun04/23/24 at 1412,Look-alike/sound-alike medication - verify indication for use. * 2023 (Given - Provider: Macrina Armenta RN) oxyCODONE-acetaminophen (PERCOCET) 5-325 mg per tablet 2 tablet 2 tablet, oral, Every 4 hours PRN, severe pain - pain scale 7-10, Starting on Sun04/23/24 at 1412, Look-alike/sound-alike medication - verify indication for use. * 1310 (Given - Provider: Olga Montana RN) prochlorperazine (COMPAZINE) injection 5 mg 5 mg, intravenous, Every 6 hours PRN, nausea, vomiting, Starting on Sun04/23/24 at 1412, When administered via IV Push, do not exceed 5 mg per minute sodium chloride 0.9% (NS) irrigation bottle (CANCELED) As needed, Starting on Sun04/23/24 at 0925, Intra-op * 0925 (Given - Provider: Tonia Manzo MD - Comment: GIVEN TO [employer]) Order Group 1: oxyCODONE (ROXICODONE) immediate release [...] Ordered Prescriptions (unrec ognized section and content) PrescriptionSigDispensedRefillsStart DateEnd labetalol (NORMODYNE) 300 MG tablet Take 2 tablets by mouth 4 times daily 60 tablet NIFEdipine (PROCARDIA XL) 90 MG extended release tablet Take 1 tablet by mouth daily 30 tablet citalopram (CELEXA) 10 MG tablet Take 1 tablet by mouth daily 30 tablet NIFEdipine (PROCARDIA XL) 60 MG extended release tablet Take 1 tablet by mouth daily 30 tablet labetalol (NORMODYNE) 300 MG tablet Take 2 tablets by mouth in the morning, at noon, and at bedtime 60 tablet NIFEdipine (PROCARDIA XL) 30 MG extended release tablet Take 1 tablet by mouth daily 30 tablet labetalol (NORMODYNE) 200 MG tablet Take 3 tablets by mouth in the morning, at noon, and at bedtime 120 tablet rescriptionSigDispensedRefillsStart DateEnd rivaroxaban 15 & 20 MG Starter Pack Take as directed on package. 1 each apixaban starter pack (ELIQUIS DVT/PE STARTER PACK) 5 MG TBPK tablet Take 1 tablet by mouth See Admin Instructions 74 tablet Care Teams (unrecognized sec tion and content) Team MemberRelationshipSpecialtyStart DateEnd Date Riddhi Plata MD [address] [facility] [place] [address] PCP - GeneralFamily Medicine01/16/23Team MemberRelationshipSpecialtyStart DateEnd Date Riddhi Plata MD [address] [facility] [place] [address] PCP - GeneralFamily Medicine01/16/23Team MemberRelationshipSpecialtyStart DateEnd Date Riddhi Plata MD [address] [facility] [place] [address] PCP - GeneralFamily Medicine01/16/23Team MemberRelationshipSpecialtyStart DateEnd Date Riddhi Plata MD [address] [facility] [place] [address] PCP - GeneralFamily Medicine01/16/23Team MemberRelationshipSpecialtyStart DateEnd Date Riddhi Plata MD [address] [facility] [place] [address] PCP - GeneralFamily Brdlfcug59/18/22Team MemberRelationshipSpecialtyStart Date End Date Riddhi Plata MD [address] [facility] [place] [address] PCP - GeneralFamily Medicine12/09/23Team MemberRelationshipSpecialtyStart DateEnd Date Riddhi Plata MD [address] [place] [address] PCP - GeneralFamily Medicine12/09/23Team MemberRelationshipSpecialtyStart DateEnd Date Riddhi Plata MD [address] [place] [address] PCP - GeneralFamily Witfrgxu42/18/22Team MemberRelationshipSpecialtyStart Date End Date Riddhi Plata MD [address] [place] [address] PCP - GeneralFamily Egpjkbdz40/18/22Team MemberRelationshipSpecialtyStart Date End Date Riddhi Plata MD [address] [place] [address] PCP - GeneralFamily Qrmslwkc08/18/22Team MemberRelationshipSpecialtyStart Date End Date Riddhi Plata MD [address] [place] [address] PCP - GeneralFamily Hkkhyeyd25/18/22Team MemberRelationshipSpecialtyStart Date End Date Riddhi Plata MD [address] [place] [address] PCP - GeneralFamily Dtgagmyl25/18/22Team MemberRelationshipSpecialtyStart Date End Date Riddhi Plata MD [address] [place] [address] PCP - GeneralFamily Medicine12/09/23Team MemberRelationshipSpecialtyStart DateEnd Date Riddhi Plata MD [address] [place] [address] PCP - GeneralFamily Medicine12/09/23Team MemberRelationshipSpecialtyStart DateEnd Date Riddhi Plata MD [address] [place] [address] PCP - GeneralFamily Medicine12/09/23Team MemberRelationshipSpecialtyStart DateEnd Date Riddhi Plata MD [address] [place] [address] PCP - GeneralFamily Medicine12/09/23Team MemberRelationshipSpecialtyStart DateEnd Date Riddhi Plata MD [address] [place] [address] PCP - GeneralFamily Tburbyzz18/18/22Team MemberRelationshipSpecialtyStart Date End Date Riddhi Plata MD [address] [place] [address] PCP - GeneralFamily Medicine12/09/23Team MemberRelationshipSpecialtyStart DateEnd Date Riddhi Plata MD [address] [place] [address] PCP - GeneralFamily Clwwfcwz65/18/22Team MemberRelationshipSpecialtyStart Date End Date Riddhi Plata MD [address] [place] [address] PCP - GeneralFamily Medicine12/09/23Team MemberRelationshipSpecialtyStart DateEnd Date Riddhi Plata MD [address] [place] [address] PCP - GeneralFamily Medicine12/09/23Team MemberRelationshipSpecialtyStart DateEnd Date Riddhi Plata MD PCP - GeneralFamily Medicine12/09/23Team MemberRelationshipSpecialtyStart DateEnd Date Riddhi Plata MD PCP - GeneralFamily Medicine12/09/23Team MemberRelationshipSpecialtyStart DateEnd Date Riddhi Plata MD PCP - Generalmily Medicine12/09/23Team MemberRelationshipSpecialtyStart DateEnd Date Riddhi Plata MD PCP - Generalmily Medicine12/09/23Team MemberRelationshipSpecialtyStart DateEnd Date Riddhi Plata MD PCP - GeneralFamily Medicine12/09/23Team MemberRelationshipSpecialtyStart DateEnd Date Riddhi Plata MD PCP - GeneralFamily Medicine12/09/23Team MemberRelationshipSpecialtyStart DateEnd Date Riddhi Plata MD PCP - GeneralFamily Medicine12/09/23Team MemberRelationshipSpecialtyStart DateEnd Date Riddhi Plata MD PCP - GeneralFamily Medicine12/09/23Team MemberRelationshipSpecialtyStart DateEnd Date Riddhi Plata MD [address] [place] [facility] [address] PCP - GeneralFamily Medicine01/16/23am MemberRelationshipSpecialtyStart DateEnd Date Riddhi Plata MD [address] [place] [facility] [address] PCP - GeneralFamily Medicine01/16/23am MemberRelationshipSpecialtyStart DateEnd Date Riddhi Plata MD [address] [place] [facility] [address] PCP - GeneralFamily Medicine01/16/23Team MemberRelationshipSpecialtyStart DateEnd Date Riddhi Plata MD PCP - GeneralFamily Medicine12/09/23Team MemberRelationshipSpecialtyStart DateEnd Date Riddhi Plata MD PCP - GeneralFamily Medicine12/09/23Team MemberRelationshipSpecialtyStart DateEnd Date Riddhi Plata MD PCP - GeneralFamily Medicine12/09/23Team MemberRelationshipSpecialtyStart DateEnd Date Riddhi Plata MD PCP - GeneralFamily Medicine12/09/23Team MemberRelationshipSpecialtyStart DateEnd Date Riddhi Plata MD [address] [facility] [place] [address] [facility]01/16/23Te MemberRelationshipSpecialtyStart DateEnd Date Riddhi Plata MD [address] [place] [place] [address] [facility] - [facility]01/16/23Te MemberRelationshipSpecialtyStart DateEnd Date Riddhi Plata MD [facility]12/09/23Te MemberRelationshipSpecialtyStart DateEnd Date Riddhi Plata MD [address] [facility] [place] [address] [facility] - [facility]01/16/23Te MemberRelationshipSpecialtyStart DateEnd Date Riddhi Plata MD [facility] - [facility]12/09/23 FOR RECORDS PERTAINING TO PATIENTS WHO ARE [...] BE BASED ON THE PRIMARY CLINICAL RECORDS. [facility]. provides no warranty or guarantee of the accuracy or completeness of information in this document.
[2025-07-01 09:49] LABS: Hematocrit 29.7 % (36.0-48.0); Hemoglobin 10.2 g/dL (12.0-16.0); Immature Granulocytes Abs Auto 0.06 10^3/uL (0.00-0.03); Immature Granulocytes Pct Auto 0.5 % (0.0-0.5); Lymphocytes Absolute Auto 2.9 10^3/uL (1.2-3.8); Mean Corpuscular HGB Conc 34.3 g/dL (29.9-35.2); Mean Corpuscular Hemoglobin 31.3 pg (26.7-34.0); Mean Corpuscular Volume 91.1 fL (81.0-99.0); Platelet Count 247 10^3/uL (150-450); Red Blood Count 3.26 10^6/uL (4.20-5.40); White Blood Count 11.4 10^3/uL (4.0-11.0)
== END 2025-07-01 08:54 | disposition home or self-care (01) ==
LOC: LAB 08:56
PROVIDERS: PCP Family Medicine; Visit Provider Nurse Practitioner Family
DX: Z34.92 Encounter for supervision of normal pregnancy, unspecified, second trimester (principal); Z3A.21 21 weeks gestation of pregnancy
CPT/HCPCS: 36415; 83036; 85025

== ENCOUNTER 2025-07-05 19:31 | Observation (INO) | payer OTHER, SELFPAY ==
--- OUTSIDE RECORDS SUMMARY | 2025-06-23 04:05 | XMS_ITS | Encounter Summary ---
Author Organization [facility] Address [facility] [id number] [address] 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 Constant and sharp. Tylenol has been ineffective. Denies contractions/tightening. Denies VB, LOF. +FMBack Pain Encounter Details DateTypeDepartmentCare Team (Latest Contact Info)Bszddahsptj01/14/2025 4:05 AM EDT - 06/23/2025 9:28 AM EDTEmergency [facility] [address] [place] [id number] Spencer Melendez DO [address] [place] [address] Nita Dunlap MD [address] [place] [address] Abdominal pain of multiple sites (Primary Dx) Discharge Disposition: Home Social History Tobacco UseTypesPacks/DayYears UsedDateSmoking Tobacco: NeverSmokeless Tobacco: NeverAlcohol UseStandard Drinks/WeekCommentsNot Currently0 (1 standard drink = 0.6 oz pure alcohol)[facility] UtilitiesAnswerDate RecordedIn the past 12 months has [...] care, and heating?Not hard at all06/23/2025PHQ-2AnswerDate RecordedTotal Qtlvx092 PRAPARE - TransportationAnswerDate RecordedIn the past 12 [...] part of a household?No06/23/2025hildcareAnswerDate RecordedDo problems getting children's service 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 make it difficult for you to work or study?No06/23/2025 EmploymentAnswerDate GnxrhxeiTjlilmcyelUrtgsvx29/06/2019Hunger ScreeningAnswer Date RecordedWithin the past 12 months we worried whether our food would run out before we got money to buy more.Never True06/23/2025Within the past 12 months the food we bought just didn't last and we didn't have money to get more.Never True06/23/2025Purpose - LifeAnswerDate RecordedPurpose and direction in life Ccjljjh53/27/2021Estimated Date of CagqwsdaNbgdsmtsDdi11/06/2026Based on last menstrual period of 01/09/2025Sex and Gender InformationValueDate RecordedSex Assigned at EfydnCzyqeb71/20/2022 9:31 PM ESTLegal EakTmggdo55/06/2015 11:49 AM EDTGender VssbphdyProwdy03/20/2022 9:31 PM ESTSexual OrientationStraight 07/30/2022 9:31 PM ESTdocumented as of this encounter Last Filed Vital Signs Vital SignReadingTime TakenCommentsBlood Asrrzauf53/561 7:07 AM EDT Ocgtm449106/23/2025 7:07 AM BMAWcovehhupnh01.8 ??C (98.2 ??F)06/23/2025 7:07 AM EDTRespiratory Oqcv5511 7:07 AM EDTOxygen Hmxyjixeav15%06/23/2025 5:39 AM EDTInhaled Oxygen Concentration--Uwazwu763.3 kg (230 lb)06/23/2025 4:11 AM YYCEjkupi183.9 cm (5' 1 )06/23/2025 4:11 AM EDTBody Mass Index43.4606/23/2025 4:11 AM EDTdocumented in this encounter Discharge Instructions * Attachments The following attachments cannot be sent through Care Everywhere. * Choosing surgery to treat gallstones (Slovenian) * Camuy diet (Slovenian) documented in this encounter Medications at Time [...] day as needed. citalopram (CeleXA) 20 mg tablet Indications:anxiety with [...] route every 30 (thirty) days. 3 each cholecalciferol 1,000 units tablet Indications:Vitamin D deficiencyTake 1 tablet (1,000 Units total) by mouth in the morning for 30 days. 30 tablet 30951documented as of this encounter Progress Notes * [...] uterus at 23 weeks, non tender uterus. [place] was silent all night. Stable FHT with [...] from the original note were not included. [facility] - EMERGENCY Pt Name: Shira Jett Birthdate: [...] Resource Strain: Low Risk (11/29/2021) Received from [facility] Overall Financial Resource Strain (CARDIA) ??? [...] Course as of 06/23/25 0509 SunJun 23, [address] Dunlap who agreed with [...] Plan of Treatment DateTypeDepartmentCare Team (Latest Contact Info)Uaawvmzntnu59/30/2025 9:45 AM EDTAppointment [facility] [address] [place] [id number] 07/09/2025 11:30 AM EDTOffice Visit Maternal- Medicine at [facility] [address] [place] [address] Sana Lima MD [address] [place] [address] documented as of this encounter Goals GoalPatient Goal TypeAssociated ProblemsRecent ProgressPatient-Stated?Author safe discharge to home Kate Malave RN Note: Evaluation of progress towards goal: safe transition from hospital to home with family support. documented as of this encounter Procedures Procedure NamePriorityDate/TimeAssociated DiagnosisCommentsCT CTA CHESTSTAT 06/23/2025 8:40 AM EDT VVORDHWQHNOPBI49/14/2025 5:20 AM EDT CBC WITH AUTO BMKIMDUPQGGDREFS48/14/2025 4:21 AM EDT NRHMXLBZZG23/14/2025 4:21 AM EDT COMPREHENSIVE METABOLIC MUQGUKVBB42/14/2025 4:21 AM EDT documented in this encounter [...] 8:49 AM Authorizing ProviderResult TypeResult StatusCoribridget Dunlap MD[facility] [place]LES Final Result * Urinalysis (06/23/2025 5:20 AM EDT)ComponentValueRef RangeTest MethodAnalysis TimePerformed AtPathologist JdvygtrfwAWKDZRyubmpWsnajg89/14/2025 6:36 AM EDT [facility]ENTERTURBIDITYClearClear06/23/2025 6:36 AM EDT [facility]ENTERPECIFIC GRAVITY1.0201.003 - 1.035 06/23/2025 6:36 AM EDTPASHTABULA GENERAL HOSPITALNITRITENegative Tpcsytvp96/14/2025 6:36 AM EDTPASHTABULA GENERAL HOSPITALPH,URINE6.0 5.0 - 8.510 6:36 AM EDMCCULLOUGH-HYDE MEMORIAL HOSPITALLEUKOCYTE ISYECKLTXehwepfoTfvjprry74/14/2025 6:36 AM EDTPASHTABULA GENERAL HOSPITALPROTEINNegativeNegative06/23/2025 6:36 AM EDTPASHTABULA GENERAL HOSPITALKETONES (URINE)VkmfwkuoZfnvqtwi30/14/2025 6:36 AM EDT [facility] CENTERUROBILINOGEN1.0 eu/dL0.2 eu/dL, 1.0 eu/dL 06/23/2025 6:36 AM EDTPASHTABULA GENERAL HOSPITALBILIRUBIN (URINE) LlbzdrdzXiaxbqle81/14/2025 6:36 AM EDMCCULLOUGH-HYDE MEMORIAL [facility]ITAL BLOOD/AEXRrvhacbaMkyzaduz68/14/2025 6:36 AM EDMCCULLOUGH-HYDE MEMORIAL HOSPITALGLUCOSE (URINE)NegativeNegative, 250 mg/dL06/23/2025 6:36 AM EDT [facility] (Source)Anatomical Location / LateralityCollection Method / VolumeCollection TimeReceived TimeUrineUrine specimen collection, clean catch / Eldtmus2606/23/2025 5:20 AM EDT1 6:32 AM EDT Narrative Authorizing ProviderResult TypeResult StatusCojyoti Dunlap MDURINE ORDERABLES Final ResultPerforming OrganizationAddressCity/State/ZIP CodePhone Number [address] [place] [address], [place] * Lipase (06/23/2025 4:21 AM EDT)ComponentValueRef RangeTest MethodAnalysis Time Performed AtPathologist NumprknfrLRETJD3112 - 40 U/L1 5:02 AM EDT [facility] (Source)Anatomical Location / LateralityCollection Method / VolumeCollection TimeReceived TimeBloodVenous blood / UnknownVenipuncture / Wggfzsz2506/23/2025 4:21 AM EDT1 4:44 AM EDT Narrative Authorizing ProviderResult TypeResult StatusJemanjula BROWNAB BLOOD ORDERABLES Final ResultPerforming OrganizationAddressty/State/ZIP CodePhone Number [address] [address], [place] * (ABNORMAL) Comprehensive metabolic panel (06/23/2025 4:21 AM EDT)Component ValueRef RangeTest MethodAnalysis TimePerformed AtPathologist SignatureSODIUM 390908 - 146 mmol/L1 5:[address] [facility] POTASSIUM3.93.5 - 5.0 mmol/L1 5:[address] [facility] CENTERCHLORIDE10898 - 109 mmol/L1 5:[address] [facility] CENTERCARBON HCTBORB60(L)22 - 32 mmol/L1 5:05 AM EDT [facility]ENTERANION GAP85 - 15 mmol/L1 5:[address] [facility] CENTERBLOOD UREA JDPWTVNR68 - 23 mg/dL 06/23/2025 5:[address] [facility] CENTERCREATININE0.440.40 - 1.00 mg/dL06/23/2025 5:[address] [facility] CENTERComment: METHOD TRACEABLE TO IDMS SQCZFPVPPBXZGCU1680 - 99 mg/dL06/23/2025 5:05 AM EDT [facility] CENTERCALCIUM8.78.5 - 10.5 mg/dL06/23/2025 5:[address] [facility] CENTERTOTAL PROTEIN6.36.0 - 8.0 g/dL 06/23/2025 5:[address] [facility] CENTERALBUMIN3.1(L)3.2 - 5.3 g/dL06/23/2025 5:[address] [facility] CENTERALKALINE DLVRZQXDZIQ4256 - 130 U/L1 5:[address] [facility] CENTERAST11<=41 U/L1 5:[address] [facility] ALT16<=31 U/L1 5:[address] [facility] BILIRUBIN,TOTAL0.50.3 - 1.2 mg/dL06/23/2025 5:[address] [facility] MEDICAL CENTEREGFR Non-Race Dependent>90>=60 ml/min/1.73sq.m1 5:[address] [facility] MED[facility] CENTERComment: eGFR not reported due to non-numeric value for Creatinine. Reported eGFR is based on the CKD-EPI 2020 equation that does not use a race coefficient. Specimen (Source)Anatomical Location / LateralityCollection Method / Volume Collection TimeReceived TimeBloodVenous blood / UnknownVenipuncture / Unknown 06/23/2025 4:21 AM EDT1 4:44 AM EDT Narrative Authorizing ProviderResult TypeResult StatusJesse Lou Melendez [facility] BLOOD ORDERABLES Final ResultPerforming OrganizationAddressCity/State/ZIP CodePhone Number [facility] [address] [place] [address], * (ABNORMAL) CBC auto differential (06/23/2025 4:21 AM EDT)ComponentValueRef RangeTest MethodAnalysis TimePerformed AtPathologist SignatureWBC9.74 - 11 x10E9/L1 4:[address] [facility] MED[facility] CENTERRBC Count3.38 (L)3.8 - 5.2 X10E12/L1 4:[address] [facility] Wzyqteegwp05.6(L)11.7 - 15.5 g/dL06/23/2025 4:[address] [facility] CENTERHematocrit29.9(L)35 - 47 %06/23/2025 4:[address] [facility] CENTERMCV8880 - 100 fL06/23/2025 4:[address] [facility] CENTERMCH31.327 - 34 pg06/23/2025 4:[address] [facility] CENTERMCHC35.332 - 36 g/dL06/23/2025 4:[address] [facility] CENTERRDW13.011.5 - 15 %06/23/2025 4:[address] [facility] CENTERPlatelet Dafta788995 - 450 X10E9/L1 4:[address] [facility] CENTERMPV7.87 - 12 fL06/23/2025 4:49 AM EDT [facility]ENTERNeutrophils %69.6%06/23/2025 4:[address] [facility] HOSPITALLymphocytes %24.9%06/23/2025 4:[address] EDT [facility] HOSPITALMonocytes %4.0%06/23/2025 4:49 [address] EDT [facility] HOSPITALEosinophils %1.1%06/23/2025 4:49 AM EDT [facility]ENTERBasophils %0.4%06/23/2025 4:49 AM EDT [facility] CENTERNeutrophils Absolute (A)6.8(H)1.5 - 6.6 10*3/uL06/23/2025 4:49 AM EDTPASHTABULA GENERAL HOSPITALLymphocytes Absolute2.41.0 - 3.5 10*3/uL06/23/2025 4:49 AM EDTPWAYNE HEALTHCARE MAIN CAMPUS HOSPITALMonocytes Absolute0.40.0 - 0.9 10*3/uL06/23/2025 4:49 AM EDTPWAYNE HEALTHCARE MAIN CAMPUS HOSPITALEosinophils Absolute0.10.0 - 0.4 10*3/uL06/23/2025 4:49 AM EDTPASHTABULA GENERAL HOSPITALBasophils Absolute0.00.0 - 0.2 10*3/uL06/23/2025 4:[address] [facility] CENTERDifferential TypeAUTOMATED SERZUCBZYEUE61/14/2025 4:49 AM EDNORWALK MEMORIAL HOSPITALpecimen (Source)Anatomical Location / LateralityCollection Method / VolumeCollection TimeReceived TimeBloodVenous blood / UnknownVenipuncture / Vgacuwa0306/23/2025 4:21 AM EDT1 4:44 AM EDT Narrative Authorizing ProviderResult TypeResult StatusJesse Lou Melendez [facility]AB BLOOD ORDERABLES Final ResultPerforming OrganizationAddressCity/State/ZIP CodePhone Number [facility] [address] [place] [address], documented in this encounter Visit Diagnoses Diagnosis [...] 1 dose, VESICANT (RED) Given06/23/2025 8:22 AM FSJ847 mL sodium chloride 0.9 % flush 10 [...] - Provider: Anne Maldonado - Comment: lot [id number] exp 03/09/28) sodium chloride 0.9 % flush [...]
--- OUTSIDE RECORDS SUMMARY | 2025-06-24 13:40 | XMS_ITS | Encounter Summary ---
Author Organization [facility] Address [address] [place] [address] Care Team Providers Care Precast Worker Name Role Phone Riddhi Plata MD Primary Care Provider [phone] Reason for Visit * ReasonCommentsRoutine Visit Encounter Details DateTypeDepartmentCare Team (Latest Contact Info)Yykikvboezh45/15/2025 1:40 PM EDTRoutine [facility] [address] [address] Winter English PA [address] [place] [address] Gallstones and inflammation of gallbladder without obstruction (Primary Dx); Second trimester ([facility]); 23 weeks gestation of ([facility]); History of diet controlled gestational diabetes mellitus (GDM); Preeclampsia in period ([facility]); History of pulmonary embolism; Primary hypertension; Diabetes mellitus screening Social History Tobacco UseTypesPacks/DayYears UsedDateSmoking Tobacco: NeverSmokeless Tobacco: NeverAlcohol UseStandard Drinks/WeekCommentsNever0 (1 standard drink = 0.6 oz pure alcohol)Caffeine intake: 1-2 cups per day coffeeEstimated Date of LaidnueiHhokzocoJiv18/06/2026ased on last menstrual period of 01/09/2025Sex and Gender InformationValueDate RecordedSex Assigned at BirthNot on fileLegal Sex Nkakth2411/22/2022 9:44 PM EDTGender IdentityNot on fileSexual OrientationNot on filedocumented as of this encounter Last Filed Vital Signs Vital SignReadingTime TakenCommentsBlood Zwncgwai604/7006/24/2025 1:57 PM EDT Pulse--Temperature--Respiratory Rate--Oxygen Saturation--Inhaled Oxygen Concentration--Adjwet780 kg (234 lb)06/24/2025 1:57 PM EDTHeight--Body Mass Index44. 3:32 PM ESTdocumented in this encounter Progress Notes * JOSEPHINE Chinchilla - 06/24/2025 1:40 PM EDT Reason for Appointment: Patient ID: Shira Jett is a 30 y.o. female who presents for Routine Visit Patient presents today for Return OB appointment. MEDICATIONS Current Outpatient Medications [...] MG tablet 1 tablet, Oral, Daily ALLERGIES Allergies[1] PROBLEMS Active Ambulatory Problems Diagnosis Date Noted Morbid obesity with body mass index of 60.0-69.9 in adult ([facility]) 01/26/2023 Polycystic ovarian disease 01/26/2023 Primary hypertension 01/26/2023 Adjustment disorder with anxiety 11/30/2021 Amnesia 05/17/2023 Anxiety 07/07/2019 Anemia 06/26/2019 Depression 06/13/2019 Disorder of endocrine system 05/17/2023 Family history of diabetes during 11/28/2021 Family history of thrombosis 03/17/2022 Frequent headaches 05/17/2023 Gastroesophageal reflux disease 12/15/2019 Gestational diabetes mellitus (GDM) ([facility]) 12/09/2018 History of diet controlled gestational diabetes mellitus (GDM) 11/30/2021 Iron deficiency anemia 12/29/2019 Irregular periods 05/17/2023 Menorrhagia with regular cycle 05/17/2023 Asthma ([facility]) 12/09/2018 Class 3 severe obesity due to excess calories with serious comorbidity and body mass index (BMI) of50.0 to 59.9 in adult ([facility]) 05/17/2023 Nausea and vomiting 05/17/2023 Pneumonia due to infectious organism 07/30/2022 Preeclampsia in period ([facility]) 11/26/2021 Acute pulmonary embolism ([facility]) 05/17/2023 Single subsegmental pulmonary embolism without acute cor pulmonale ([facility]) 05/17/2023 Seasonal allergic rhinitis due to pollen 12/15/2019 Thyroid nodule 05/17/2023 Urinary tract infection without hematuria 05/17/2023 LUCIANO on CPAP 02/22/2023 History of pulmonary embolism 03/17/2022 H/O gastric bypass 04/20/2025 Resolved Ambulatory Problems Diagnosis Date Noted No Resolved Ambulatory Problems Past Medical History: Diagnosis Date Acute memory impairment COVID 02/2020 Encounter for insertion of Mirena IUD GERD without esophagitis Gestational diabetes ([facility]) H/O blood clots H/O: hypertension High blood pressure History of being hospitalized Hormone imbalance Intrauterine device surveillance Irregular bleeding Morbid obesity with BMI of 50.0-59.9, adult ([facility]) Nausea Nausea with vomiting Pneumonia 07/30/2022 hypertension ([facility]) Pulmonary embolism ([facility]) 11/2021 Well woman exam HISTORY PAST MEDICAL HISTORY SOCIAL HISTORY Medical History[2] Social History Tobacco Use Smoking status: Never Smokeless tobacco: Never Substance Use Topics Alcohol use: Never Comment: Caffeine intake: 1-2 cups per day coffee Drug use: Never FAMILY HISTORY Family History[3] SURGICAL HISTORY Surgical History[4] REVIEW OF SYSTEMS Review of Systems: Review of Systems Constitutional: Negative. HENT: Negative. Eyes: Negative. Respiratory: Negative. Cardiovascular: Negative. Gastrointestinal: Negative. Intermittent Right Upper Quad pain recently diagnosed with gallstones Genitourinary: Negative. Musculoskeletal: Negative. Skin: Negative. Neurological: Negative. All other systems reviewed and are negative. Hematological: Negative. Endocrine: Negative. Allergic/Immunologic: Negative. OBJECTIVE Objective: Physical Exam Constitutional: Appearance: Normal appearance. She is well-developed. Cardiovascular: Rate and Rhythm: Normal rate and [...] nursing note reviewed. Exam conducted with a windmill technician present. Vitals: Estimated body mass index is 43.65 kg/m?? as calculated from the following: Height as of 10/10/24: 5' 1 . Weight as of 06/10/25: 231 lb. BP: Patient's last menstrual period was 01/09/2025. ASSESSMENT & PLAN ICD-10-CM 1. Second trimester ([facility]) Z34.92 POCT urinalysis dipstick manually resulted 2. 23 weeks gestation of ([facility]) Z3A.23 3. History of diet controlled gestational diabetes mellitus (GDM) Z86.32 4. Preeclampsia in period ([facility]) O14.95 5. History of pulmonary embolism Z86.711 6. Primary hypertension I10 7. Diabetes mellitus screening Z13.1 CBC and differential CBC and differential CANCELED: CBC CANCELED: Glucose tolerance, 1 hour CANCELED: CBC CANCELED: Glucose tolerance, 1 hour Return OB: Patient presents today for a routine obstetrics appointment. Patient is currently 23w5d . Patient states she is doing well but has complaints of being tired due to current . Patient has verbalizes frequent movement. labor precautions was discussed/given and patient was instructed to perform kick counts three times a day. Patient was given A1C/CBC order to have scheduled at [facility]. Pt can't not drink the glucose drink due to having gastric bypass surgery. Pt was advised to make sure to have her blood drawn. PVU. Pt states she was dx w/gallstones at the [facility] on 06/17/2025. Pt states she ended up atthe ER again on yesterday 06/23/2025 w/Gallstone pain again. Pt was advised to see OB or PCP for a referral to a specialist by the ER doctor. Orders Placed This Encounter Procedures CBC and differential POCT urinalysis dipstick manually resulted Follow Up: Patient is to return to office in 3 week for routine OB appointment. Documented by Marva Cooney MA on behalf of: JOSEPHINE Chinchilla [1] Allergies Allergen Reactions Sumatriptan Anaphylaxis and Unknown IMITREX FOR MIGRAINES Other Reaction(s): Other (See Comments) [2] Past Medical History: Diagnosis Date Acute memory impairment Anemia Asthma (HCC) COVID 02/2020 Depression Encounter for insertion of Mirena IUD Frequent headaches GERD without esophagitis Gestational diabetes ([facility]) H/O blood clots H/O gastric bypass H/O: hypertension High blood pressure History of being hospitalized Pt was re-admitted to [facility] for HTN (11/2021) , Pt had a baby (11/21/21) Hormone imbalance Intrauterine device surveillance Irregular bleeding Morbid obesity with BMI of 50.0-59.9, adult ([facility]) Nausea Nausea with vomiting Pneumonia 07/30/2022 hypertension ([facility]) Pulmonary embolism ([facility]) 11/2021 Rt. ; [facility] post Well woman exam [3] Family History Problem Relation Name Age of Onset Hypertension Mother Diabetes Father Hypertension Father Mental illness Father Cancer Maternal Grandmother Cancer Paternal Grandmother Diabetes Paternal Grandfather [4] Past Surgical History: Procedure Laterality Date CT ANGIOGRAM HEART CORONARY 07/30/2022 CT ANGIOGRAM TAVR 07/30/2022 CT ANGIOGRAM HEART CORONARY 11/23/2018 CT ANGIOGRAM TAVR 11/23/2018 CT ANGIOGRAM HEART CORONARY 06/23/2025 CT ANGIOGRAM TAVR 06/23/2025 GASTRIC BYPASS 04/23/2024 PELVIC LAPAROSCOPY 11/03/2022 with removal of IUD US GUIDED FINE PERCUTANEOUS ASPIRATION 06/14/2020 US GUIDED FINE PERCUTANEOUS ASPIRATION 06/14/2020 documented in this encounter Plan of Treatment DateTypeDepartmentCare Team (Latest Contact Info)Tqolpgfkyev78/29/2025 8:30 AM EDTRoutine [facility] [address] [id number] Winter English PA [address] [place] [address] NameTypePriorityAssociated DiagnosesOrder ScheduleCBC and differentialLabRoutine Diabetes mellitus screening Expected: 06/24/2025 (Approximate), Expires: 06/24/2026documented as of this encounter Goals GoalPatient Goal TypeAssociated ProblemsRecent ProgressPatient-Stated?Author Help patient manage antidepressant medication Care PlanPatient on antidepressant monitoring Riddhi Mcdonald MD Baseline PHQ-9 Care PlanBaseline PHQ-9Riddhi Lerma, MDdocumented as of this encounter Visit Diagnoses Diagnosis Gallstones and inflammation of gallbladder without obstruction- Primary Calculus of gallbladder with acute cholecystitis, without mention of obstruction Second trimester ([facility]) state, incidental 23 weeks gestation of ([facility]) History of diet controlled gestational diabetes mellitus (GDM) Preeclampsia in period ([facility]) History of pulmonary embolism Personal history of venous thrombosis and embolism Primary hypertension Unspecified essential hypertension Diabetes mellitus screening Screening for diabetes mellitus documented in this encounter Additional Health Concerns Active ProblemsNoted DateDiagnosed DatePatient on antidepressant monitoring plan 4Baseline PHQ-904documented as of this encounter Care Teams Team MemberRelationshipSpecialtyStart DateEnd Date Riddhi Plata MD [address] [place] [address] PCP - GeneralFamily Medicine01/16/23documented as of this encounter
--- OUTSIDE RECORDS SUMMARY | 2025-07-05 19:36 | XMS_ITS | Clinical Summary ---
Author Organization [facility] Address [id number] [address] [place] [address] Care Team Providers Care Tours Captain Name Role Phone Riddhi Plata MD Primary Care Provider [phone] Allergies Active AllergyReactionsCriticalityNoted DateCommentsSumatriptanAnaphylaxis,Other (See Comments)High11/28/2018 IMITREX [...] mouth in the morning. 30 tablet 5Active aspirin 81 mg Indications:20 weeks gestation of ,Chronic hypertension affecting pregnancyTake 1 tablet (81 mg total) by mouth in the morning. 30 tablet 5Active blood sugar diagnostic strip Indications:20 weeks gestation [...] the morning and at bedtime. 12 mL 5Active ferrous sulfate 325 (65 FE) MG tablet [...] by mouth in the morning. 90 tablet /Discontinued ferrous sulfate 325 (65 FE) MG tablet Indications:History of Arlene-en-Y gastric bypass,Postsurgical malabsorption, Malnutrition following gastrointestinal surgery,Iron deficiencyTake 1 tablet (325 mg total) by mouth in the morning. 90 tablet /Discontinued(Reorder) cholecalciferol 1,000 units tablet Indications:Vitamin D deficiencyTake 1 tablet (1,000 Units total) by mouth in the morning for 30 days. 30 tablet Expired Active Problems ProblemNoted DateDiagnosed DateH/O gastric knyvia3612/30/2024Postsurgical tmwtzummakayl74/22/2025Malnutrition following gastrointestinal lsjeanq6112/30/2024 Class 3 severe obesity with body mass index (BMI) of 60.0 to 69.9 in adult 04/23/2024OSA on CPAP02/22/2023History of pulmonary /08/2022Family history of ocizrdgiej27/08/0122Wdzzff36/01/2019Estimated Date of QgoaccytYpauevddIlo10/06/2026ased on last menstrual period of 01/09/2025 Resolved Problems ProblemNoted DateDiagnosed DateResolved DatePneumonia due to infectious organism, unspecified laterality, unspecified part of lung/ Gestational odyqufra464Preeclampsia, arrlkt60 Encounters DateTypeDepartmentCare FlthNhxdhjsifsl03/24/2025Telephone [facility] Physicians General Surgery-Bariatric [address] [facility] [address] [place] [address] Ken Manzo MD 06/25/2025Orders Only Maternal- Medicine at [facility] [address] [place] [address] Winter Gibbons LPN History of gestational diabetes in prior , currently in second trimester (PrimaryDx); History of prediabetes; History of gestational diabetes in prior , currently qcvhhyma33/14/2025 4:05 AM EDT - 06/23/2025 9:28 [facility] [address] [place] [phone] [phone] Spencer Melendez DO Kovach, Corie L, MD Abdominal pain of multiple sites (Primary Dx) Discharge Disposition: Home06/23/20255970Dpgaxn34/13/2025Telephone Maternal- Medicine at [address] [phone] Winter Gibbons LPN 06/17/2025 10:39 AM EDT - 06/17/2025 12:10 PM [facility] [address] [place] [address] Jaswinder Melvin MD Symptomatic cholelithiasis (Primary Dx) Discharge Disposition: Home06/17/20250586Ugrvzs94/08/2025Telephone Maternal- Medicine at [address] [phone] Winter Gibbons LPN 06/16/2025Refill [facility] Physicians General Surgery-Bariatric [address] [facility] [address] [place] [phone] Moriah Lira PA-C History of Arlene-en-Y gastric bypass; Postsurgical malabsorption; Malnutrition following gastrointestinal surgery; B12 xvnxayfofr72/29/2025Orders Only Maternal- Medicine at [address] [phone] Ester Marie MD History of Arlene-en-Y gastric bypass; Postsurgical malabsorption; Malnutrition following gastrointestinal surgery; Folate deficiency; Iron mlbtqjribr59/22/2025Results Follow-Up Maternal- Medicine at [facility] [address] [place] [phone] Ester Marie MD B-type natriuretic peptide, CBC without diff, Comprehensive metabolic panel, Additional followed-upresults: 11:00 AM EDTOffice Visit Maternal- Medicine at [facility] [address] [place] [phone] Ester Marie MD History of maternal pulmonary [...] Depression affecting ; Anxiety disorder affecting , cpgkbcgnir62/19/2025 9:30 AM EDT - 05/29/2025 11:59 PM EDTHospital Encounter [facility] US Imaging [address] [place] [phone] Screening, , for anatomic survey Discharge Disposition: [place]05/29/2025Orders Only Maternal- Medicine at [facility] [address] [place] [phone] Winter Gibbons LPN 20 weeks gestation of [...] Depression affecting ; Anxiety disorder affecting , nemqlbzlyd39/19/9046Hbdagc44/18/2025Orders Only Maternal- Medicine at [facility] [address] [place] [address] Ref Prov, Not In System 05/28/2025bstract Maternal- Medicine at [facility] [address] [place] [address] Ester Marie MD 05/26/2025Refill [facility] Surgery-Bariatric [address] [place] [address] [address] [place] [phone] Moriah Lira PA-C History of Arlene-en-Y gastric bypass; Postsurgical malabsorption; Malnutrition following gastrointestinal surgery; B12 /11/2025Refill [facility] Surgery[address] [phone] Moriah Lira PA-C History of Arlene-en-Y gastric bypass; Postsurgical malabsorption; Malnutrition following gastrointestinal surgery; B12 xsadhhsnet23/17/2025Refill [facility] Surgery-Bariatric [address] [place] [address] [address] [place] [phone] Moriah Lira PA-C History of Arlene-en-Y gastric [...] (1 standard drink = 0.6 oz pure alcohol)socialQuaero UtilitiesAnswerDate RecordedIn the past 12 months has the [place], gas, oil, or water SmartPill threatened to shut off services in your [...] care, and heating?Not hard at all06/23/2025PHQ-2AnswerDate RecordedTotal Vddxs862RAPARE - TransportationAnswerDate RecordedIn the past 12 months, [...] of a household?No06/23/2025hildcareAnswerDate RecordedDo problems getting child and adolescent psychologist make it difficult for you to work or study?No06/23/2025 EmploymentAnswerDate QevzbrmrNrlgbckxxgKrskivx94/06/2019Hunger ScreeningAnswer Date RecordedWithin the past 12 months we worried whether our food would run out before we got money to buy more.Never True06/23/2025Within the past 12 months the food we bought just didn't last and we didn't have money to get more.Never True06/23/2025Purpose - LifeAnswerDate RecordedPurpose and direction in life Yqckwkm68/27/2021Estimated Date of XfmuygzaGxxeirtwZfi60/06/2026Based on last menstrual period of 01/09/2025Sex and Gender InformationValueDate RecordedSex Assigned at JxvbzQorsfn43/20/2022 9:31 PM ESTLegal OfmPxfefr26/06/2015 11:49 AM EDTGender TmsebhpsFjqbfw31/20/2022 9:31 PM ESTSexual OrientationStraight 07/30/2022 9:31 PM EST Last Filed Vital Signs Vital SignReadingTime TakenCommentsBlood Zlrmgckm09/561 7:07 AM EDT Zwhjc262706/23/2025 7:07 AM DUVYhpsrmsmhyn55.8 ??C (98.2 ??F)06/23/2025 7:07 AM EDTRespiratory Cgrh5941 7:07 AM EDTOxygen Czzmnqmbpo77%06/23/2025 5:39 AM EDTInhaled Oxygen Concentration--Qyaspb196.3 kg (230 lb)06/23/2025 4:11 AM UXDQlspfj040.9 cm (5' 1 )06/23/2025 4:11 AM EDTBody Mass Index43.4606/23/2025 4:11 AM EDT Plan of Treatment DateTypeDepartmentCare Team (Latest Contact Info)Kkzhbjaswdk18/30/2025 9:45 AM EDTAppointment [facility] US Imaging [address] [place] [phone] 07/09/2025 11:30 AM EDTOffice Visit Maternal- Medicine at [facility] [address] [place] [phone] Sana Lima MD [address] [place] [address] Health MaintenanceDue DateLast DoneCommentsDTaP,Tdap and Td Vaccines (7 - Td or Tdap), 01/14/1999, 10/23/1996, Additional history exists Depression Moyacmybn31/dult BMI Follow Up Plan05/01/2025 05/01/2024Influenza Pjegyrk42/10/2018, 07/11/2011dult BMI Screening Tobacco Xbjxdyrqy58Pap Smear06/10/2028 06/10/2025 Goals GoalPatient Goal TypeAssociated ProblemsRecent ProgressPatient-Stated?Author safe discharge to home Kate Malave RN Note: Evaluation of progress towards goal: safe transition from hospital to home with family support. Medical Devices Not on file Procedures Procedure NamePriorityDate/TimeAssociated DiagnosisCommentsCT CTA CHESTSTAT 06/23/2025 8:40 AM EDT IBQETPDBPNEUKN26/14/2025 5:20 AM EDT YFTOBHOWIU04/14/2025 4:21 AM EDT COMPREHENSIVE METABOLIC CQZGQSMEJ33/14/2025 4:21 AM EDT CBC WITH AUTO QZMLOSOVYDWVTWAH75/14/2025 4:21 AM EDT US ABDOMEN JZRUACBQ59/08/2025 11:31 AM EDT ER EXTRA RPBDTLCXS52/08/2025 11:24 AM EDT POCT NURSING URINE MACROSCOPIC NHLnzzcyf05/08/2025 11:09 AM EDT EXTRA TUBES BLUE UCXUoovono24/08/2025 11:04 AM EDT EXTRA KPUOUXksaosj00/08/2025 11:04 AM EDT COMPREHENSIVE METABOLIC IPSDLABZW99/08/2025 11:04 AM EDT UCEZYBGYJL66/08/2025 11:04 AM EDT CBC WITH AUTO YGAEVZZNIEFXVEPB30/08/2025 11:04 AM EDT ANTI THROMBIN 3 JJYQUDzyttbd04/19/2025 1:48 PM EDT 20 weeks gestation of History of maternal pulmonary embolus PROTEIN C XOYOHGUIRzjueqq91/19/2025 1:48 PM EDT 20 weeks gestation of History of maternal pulmonary embolus PROTEIN S DWKUQZXNIiducse83/19/2025 1:48 PM EDT 20 weeks gestation of History of maternal pulmonary embolus IRON AND ZZFXInlslqb69/19/2025 1:48 PM EDT 20 weeks gestation of Bariatric surgery status complicating , second trimester CZSOCNMNQflxnud74/19/2025 1:48 PM EDT 20 weeks gestation of Bariatric surgery status complicating , second trimester CDNEAHJkrilrg13/19/2025 1:48 PM EDT 20 weeks gestation of Bariatric surgery status complicating , second trimester ZINC, NEZXFIyqbtwz89/19/2025 1:48 PM EDT 20 weeks gestation of Bariatric surgery status complicating , second trimester VITAMIN D 25 ZYOTDCOQzvjuhv47/19/2025 1:48 PM EDT 20 weeks gestation of Bariatric surgery status complicating , second trimester VITAMIN N03Raubmbe63/19/2025 1:48 PM EDT 20 weeks gestation of Bariatric surgery status complicating , second trimester THIAMIN (VITAMIN B1), BQSoippnp30/19/2025 1:48 PM EDT 20 weeks gestation of Bariatric surgery status complicating , second trimester NPKNejsjjw60/19/2025 1:48 PM EDT 20 weeks gestation of Chronic hypertension affecting URIC KOSKNtcuykl68/19/2025 1:48 PM EDT 20 weeks gestation of Chronic hypertension affecting PROTEIN CREAT OEIBAHfhvcst60/19/2025 1:48 PM EDT 20 weeks gestation of Chronic hypertension affecting COMPREHENSIVE METABOLIC UXDWWLtkozre24/19/2025 1:48 PM EDT 20 weeks gestation of Chronic hypertension affecting CBC (NO DIFF)Shnpgvn0805/29/2025 1:48 PM EDT 20 weeks gestation of Chronic hypertension affecting B-TYPE NATRIURETIC MTGCOZIDmgcukt39/19/2025 1:48 PM EDT 20 weeks gestation of Chronic hypertension affecting US MFM COMPREHENSIVE ANATOMIC AGPODHMuhsrgn30/19/2025 12:07 PM EDT Screening, , for anatomic survey US PREG LMTD 1 OR MORE WZAMXZqvgbkt28/18/2025 11:41 AM EDTUNLISTED LAB TEST Ifhtqmy0105/28/2025 11:15 AM EDTfrom Last 3 Months Results [...] 8:49 AM Authorizing ProviderResult TypeResult StatusCoribridget Dunlap MDTrini CT ORDERABLES Final Result * Urinalysis (06/23/2025 5:20 AM EDT)ComponentValueRef RangeTest MethodAnalysis TimePerformed AtPathologist DftkrgafgWOJZGTowtlgLobvgi63/14/2025 6:36 AM EDT [facility]ITALTURBIDITYClearClear06/23/2025 6:36 AM EDT [facility]PECIFIC GRAVITY1.0201.003 - 1.035 06/23/2025 6:36 AM [facility]NITRITENegative Hidtvfuv00/14/2025 6:36 AM [facility]PH,URINE6.0 5.0 - 8.510 6:36 AM [facility]ICLEUKOCYTE WDDKBSOKHrrmykepSbdhmxdy79/14/2025 6:36 AM [facility]ICPROTEINNegativeNegative06/23/2025 6:36 AM EDLANCASTER MUNICIPAL HOSPITALKETONES (URINE)WbipfghuTwvvvumy11/14/2025 6:36 AM EDT [facility]OSPITALUROBILINOGEN1.0 eu/dL0.2 eu/dL, 1.0 eu/dL 06/23/2025 6:36 AM EDLANCASTER MUNICIPAL HOSPITALBILIRUBIN (URINE) QqycvqpqOhnbeksn24/14/2025 6:36 AM [facility] BLOOD/DLRHtiqroamGyiucjwc12/14/2025 6:36 AM [facility]ICGLUCOSE (URINE)NegativeNegative, 250 mg/dL06/23/2025 6:36 AM EDT [facility]ITALpecimen (Source)Anatomical Location / LateralityCollection Method / VolumeCollection TimeReceived TimeUrineUrine specimen collection, clean catch / Kjzdsap9806/23/2025 5:20 AM EDT1 6:32 AM EDT Narrative Authorizing ProviderResult TypeResult StatusCojyoti Dunlap MDURINE ORDERABLES Final ResultPerforming OrganizationAddressCity/State/ZIP CodePhone Number [facility] [address] [place] [address], * (ABNORMAL) CBC auto differential (06/23/2025 4:21 AM EDT) Only the most recent of2 resultswithin the time period is included. ComponentValueRef RangeTest MethodAnalysis TimePerformed AtPathologist Signature WBC9.74 - 11 x10E9/L1 4:49 AM EDTPSOUTHERN OHIO MEDICAL CENTERRBC Count3.38(L)3.8 - 5.2 X10E12/L1 4:49 AM [facility]ICHemoglobin10.6(L)11.7 - 15.5 g/dL06/23/2025 4:49 AM EDLANCASTER MUNICIPAL HOSPITALHematocrit29.9(L)35 - 47 %06/23/2025 4:49 AM EDTPSOUTHERN OHIO MEDICAL CENTERMCV8880 - 100 fL06/23/2025 4:49 AM EDLANCASTER MUNICIPAL HOSPITALMCH31.327 - 34 pg06/23/2025 4:49 AM [facility]ICMCHC35.332 - 36 g/dL06/23/2025 4:49 AM [facility]ICRDW13.011.5 - 15 %06/23/2025 4:49 AM [facility]ICPlatelet Svjmn727574 - 450 X10E9/L1 4:49 AM EDT [facility]ITALMPV7.87 - 12 fL06/23/2025 4:49 AM EDT [facility]ITALNeutrophils %69.6%06/23/2025 4:49 AM EDT [facility]ITALLymphocytes %24.9%06/23/2025 4:49 AM EDT [facility]ITALMonocytes %4.0%06/23/2025 4:49 AM EDT [facility]OS[facility]ITALEosinophils %1.1%06/23/2025 4:49 AM EDT [facility]ITALBasophils %0.4%06/23/2025 4:49 AM EDT [facility]OSPITALNeutrophils Absolute (A)6.8(H)1.5 - 6.6 10*3/uL06/23/2025 4:49 AM [facility]ICLymphocytes Absolute2.41.0 - 3.5 10*3/uL06/23/2025 4:49 AM EDLANCASTER MUNICIPAL HOSPITALMonocytes Absolute0.40.0 - 0.9 10*3/uL06/23/2025 4:49 AM [facility]ICEosinophils Absolute0.10.0 - 0.4 10*3/uL06/23/2025 4:49 AM [facility]ICBasophils Absolute0.00.0 - 0.2 10*3/uL 06/23/2025 4:49 AM [facility]ICDifferential Type AUTOMATED CPFNLXBMJGYP15/14/2025 4:49 AM [facility] Specimen (Source)Anatomical Location / LateralityCollection Method / Volume Collection TimeReceived TimeBloodVenous blood / UnknownVenipuncture / Unknown 06/23/2025 4:21 AM EDT1 4:44 AM EDT Narrative Authorizing ProviderResult TypeResult StatusJesse Lou [facility] BLOOD ORDERABLES Final ResultPerforming OrganizationAddressCity/State/ZIP CodePhone Number [facility] [address] [facility] [place] [address], * Lipase (06/23/2025 4:21 AM EDT) Only the most recent of2 resultswithin the time period is included. ComponentValueRef RangeTest MethodAnalysis TimePerformed AtPathologist Signature [id number] - 40 U/L1 5:02 AM [facility] Specimen (Source)Anatomical Location / LateralityCollection Method / Volume Collection TimeReceived TimeBloodVenous blood / UnknownVenipuncture / Unknown 06/23/2025 4:21 AM EDT1 4:44 AM EDT Narrative Authorizing ProviderResult TypeResult StatusJessbridget TRIPP BLOOD ORDERABLES Final ResultPerforming OrganizationAddressCity/State/ZIP CodePhone Number [facility] [address] [place] [address], * (ABNORMAL) Comprehensive metabolic panel (06/23/2025 4:21 AM EDT) Only the most recent of3 resultswithin the time period is included. ComponentValueRef RangeTest MethodAnalysis TimePerformed AtPathologist Signature WEWNRI970182 - 146 mmol/L1 5:05 AM [facility]ICPOTASSIUM3.93.5 - 5.0 mmol/L1 5:05 AM [facility]ICCHLORIDE10898 - 109 mmol/L1 5:05 AM [facility]ICCARBON ECVOFQD14(L)22 - 32 mmol/L1 5:05 AM EDT [facility]ITALANION GAP85 - 15 mmol/L1 5:05 AM EDT [facility]PITALBLOOD UREA ZFKJQKCG64 - 23 mg/dL06/23/2025 5:05 AM [facility]ICCREATININE0.440.40 - 1.00 mg/dL 06/23/2025 5:05 AM [facility]ICComment:METHOD TRACEABLE TO IDMS IAIABFWNJLTEDQW0511 - 99 mg/dL06/23/2025 5:05 AM [facility]ICCALCIUM8.78.5 - 10.5 mg/dL06/23/2025 5:05 AM EDT [facility]OS[facility]ITALTOTAL PROTEIN6.36.0 - 8.0 g/dL06/23/2025 5:05 AM [facility]ICALBUMIN3.1(L)3.2 - 5.3 g/dL06/23/2025 5:05 AM [facility]ICALKALINE KKTLJFSPMJL9519 - 130 U/L 06/23/2025 5:05 AM [facility]ICAST11<=41 U/L1 5:05 AM [facility]ICALT16<=31 U/L1 5:05 AM [facility]ICBILIRUBIN,TOTAL0.50.3 - 1.2 mg/dL 06/23/2025 5:05 AM [facility]INICEGFR Non-Race Dependent >90>=60 ml/min/1.73sq.m1 5:05 AM [facility] Comment: eGFR not reported due to non-numeric value for Creatinine. Reported eGFR is based on the CKD-EPI 2020 equation that does not use a race coefficient. Specimen (Source)Anatomical Location / LateralityCollection Method / Volume Collection TimeReceived TimeBloodVenous blood / UnknownVenipuncture / Unknown 06/23/2025 4:21 AM EDT1 4:44 AM EDT Narrative Authorizing ProviderResult TypeResult StatusJesse Lou Melendez [facility] BLOOD ORDERABLES Final ResultPerforming OrganizationAddressCity/State/ZIP CodePhone Number [facility] [address] [place] [address], [place] * Ultrasound abdomen limited (06/17/2025 11:31 [...] 06/17/2025 11:35 AM Authorizing ProviderResult TypeResult StatusJaswinder Melvin MDIMG US ORDERABLES Final Result * Er Extra Urine (06/17/2025 11:24 AM EDT)ComponentValueRef RangeTest Method Analysis TimePerformed AtPathologist SignatureExtra TubeAuto Resulted 06/17/2025 1:01 PM EDTPST. FRANCIS HOSPITALpecimen (Source) Anatomical Location / LateralityCollection Method / VolumeCollection Time Received TimeUrineUrine / UnknownCollection / Mjvvrem4206/17/2025 11:24 AM EDT 06/17/2025 11:24 AM EDT Narrative Authorizing ProviderResult TypeResult StatusJaswinder UNGER ORDERABLES Final ResultPerforming OrganizationAddressCity/State/ZIP CodePhone Number [facility] [address] [place] [address], [place] * POCT Nursing Urine Macroscopic UA (06/17/2025 11:09 AM EDT)ComponentValueRef RangeTest MethodAnalysis TimePerformed AtPathologist [facility] Urine Specific Gravity1.0251.010, 1.015, 1.020, 1.5344106/17/2025 11:10 AM EDT [facility] Urine Leukocyte EsteraseNegative Qiaqihvs15/08/2025 11:10 AM [facility] Urine EhwbkltIlacwrcjDhskuuny68/08/2025 11:10 AM [facility] Urine pH6.55.0, 6.0, 6.5, 7.0, 7.5, 8.0, 8.5, 5. 11:10 AM [facility] Urine ProteinNegativeNegative 06/17/2025 11:10 AM [facility] Urine Glucose CpjmegzqEeryvutl73/08/2025 11:10 AM [facility] Urine UxhftnvTwhoitvqMnkawfht64/08/2025 11:10 AM [facility] Urine Urobilinogen2.0 E.U./dL06/17/2025 11:10 AM [facility] Urine DzdamovzaMuqqirujOufizfov98/08/2025 11:10 AM [facility] Urine Blood/HGBNegativeNegative 06/17/2025 11:10 AM [facility]ITALpecimen (Source) Anatomical Location / LateralityCollection Method / VolumeCollection Time Received OyuuZaiaa14/08/2025 11:09 AM EDT1 11:10 AM EDT Narrative Authorizing ProviderResult TypeResult StatusJaswinder Melvin MDPOINT OF CARE TEST ORDERABLESFinal ResultPerforming OrganizationAddressCity/State/ZIP CodePhone Number [address] [place] [address], [place] * Light Blue Top (06/17/2025 11:04 AM EDT)ComponentValueRef RangeTest Method Analysis TimePerformed AtPathologist SignatureExtra TubeAuto Resulted 06/17/2025 1:01 PM EDTPROMEDICA LITTLE COMPANY OF MARY HOSPITALpecimen (Source) Anatomical Location / LateralityCollection Method / VolumeCollection Time Received TimeBloodVenous blood / Vieyulr0806/17/2025 11:04 AM EDT1 11:12 AM EDT Narrative Authorizing ProviderResult TypeResult StatusJaswinder GILBERT BLOOD ORDERABLES Final ResultPerforming OrganizationAddressCity/State/ZIP CodePhone Number [facility] [address] [place] [address], [place] * Thiamin (Vitamin B1), WB (05/29/2025 1:48 PM EDT)ComponentValueRef RangeTest MethodAnalysis TimePerformed AtPathologist SignatureTHIAMIN (VITAMIN B1), [place] [address] - 180 nmol/L06/02/2025 2:13 PM EDKINDRED [facility] LABORATORIESComment: ADDITIONAL INFORMATION This test was developed and its performance characteristics determined by [facility] in a manner consistent with CLIA requirements. This test has not been cleared or approved by the U.S. Food and Drug Administration. Test Performed by: [facility] - [address] [address] Teacher Public Health: Jayce Daniels Ph.D.; CLIA# [id number] Specimen (Source)Anatomical Location / LateralityCollection Method / Volume Collection TimeReceived TimeBloodVenous blood / UnknownVenipuncture / Unknown 05/29/2025 1:48 PM EDT05/29/2025 1:48 PM EDT Narrative Authorizing ProviderResult TypeResult StatusEster Marie MDLAB BLOOD ORDERABLES Final ResultPerforming OrganizationAddressCity/State/ZIP CodePhone Number [facility] [address] [place] [address], [place] * Zinc, Serum (05/29/2025 1:48 PM EDT)ComponentValueRef RangeTest MethodAnalysis TimePerformed AtPathologist SignatureZINC, S6260 - 106 mcg/dL05/30/2025 2:14 PM EDKINDRED [facility] LABORATORIESComment: ADDITIONAL INFORMATION This test was developed and its performance characteristics determined by [facility] in a manner consistent with CLIA requirements. This test has not been cleared or approved by the U.S. Food and Drug Administration. Test Performed by: [facility] - [facility] [address] [place] [address] Teacher Public Health: Jayce Daniels Ph.D.; CLIA# [id number] Specimen (Source)Anatomical Location / LateralityCollection Method / Volume Collection TimeReceived TimeBloodVenous blood / UnknownVenipuncture / Unknown 05/29/2025 1:48 PM EDT05/29/2025 1:48 PM EDT Narrative Authorizing ProviderResult TypeResult StatusEster GILBERT BLOOD ORDERABLES Final ResultPerforming OrganizationAddressCity/State/ZIP CodePhone Number [facility] [address] [place] [address], * Protein creat ratio (05/29/2025 1:48 PM EDT)ComponentValueRef RangeTest Method Analysis TimePerformed AtPathologist SignatureURINE PROTEIN, RANDOM (MG/L)110 <120 mg/L05/29/2025 3:58 PM [facility] LABORATORYURINE CREATININE,USD522.80mg/dL05/29/2025 3:58 PM [facility] LABORATORYU/PRO/LAMP INSPECTOR RATIO CALC0.08<=0. 3:58 PM [facility] LABORATORYSpecimen (Source)Anatomical Location / LateralityCollection Method / VolumeCollection TimeReceived TimeUrineUrine specimen collection, clean catch / UnknownCollection / Ynfqeia3905/29/2025 1:48 PM EDT05/29/2025 1:[address] [facility] - 05/29/2025 3:58 PM EDT Nephrotic Syndrome is associated with ratios >3.5 Authorizing ProviderResult TypeResult Lara UNGER ORDERABLESFinal ResultPerforming OrganizationAddressCity/State/ZIP CodePhone Number [facility] [address] [place] [address], * LDH (05/29/2025 1:48 PM EDT)ComponentValueRef RangeTest MethodAnalysis Time Performed AtPathologist DgepqihmoHVN000225 - 235 U/L05/29/2025 3:[address] [facility] LABORATORYSpecimen (Source)Anatomical Location / LateralityCollection Method / VolumeCollection TimeReceived TimeBloodVenous blood / UnknownVenipuncture / Cwochpn7105/29/2025 1:48 PM EDT05/29/2025 1:48 PM EDT Narrative Authorizing ProviderResult TypeResult StatusEster GILBERT BLOOD ORDERABLES Final ResultPerforming OrganizationAddressCity/State/ZIP CodePhone Number [facility] [address] [place] [address], * (ABNORMAL) Iron and TIBC (05/29/2025 1:48 PM EDT)ComponentValueRef RangeTest MethodAnalysis TimePerformed AtPathologist EdgvipwhkJUQZ6962 - 170 ug/dL 05/29/2025 3:58 PM [facility] HDODTKRAYSILGBEDGTXAX882945 - 336 mg/dL05/29/2025 3:58 PM [facility] LABORATORYIRON BINDING 465(H)250 - 425 ug/dL05/29/2025 3:58 PM [facility] IRON WDMPHAUELS6354 - 50 % XUNZDJDANK43/19/2025 3:58 PM [facility] LABORATORYSpecimen (Source)Anatomical Location / LateralityCollection Method / VolumeCollection TimeReceived TimeBloodVenous blood / Unknown Venipuncture / Wabpctg5605/29/2025 1:48 PM EDT05/29/2025 1:48 PM EDT Narrative Authorizing ProviderResult TypeResult Lara GILBERT BLOOD ORDERABLES Final ResultPerforming OrganizationAddressCity/State/ZIP CodePhone Number [facility] [address] [place] [address], * (ABNORMAL) Vitamin D 25 hydroxy (05/29/2025 1:48 PM EDT)ComponentValueRef RangeTest MethodAnalysis TimePerformed AtPathologist SignatureVITAMIN D 25 HYD TOT27.1(L)30.0 - 100.0 ng/mL05/29/2025 4:18 PM [facility]ATORYSpecimen (Source)Anatomical Location / LateralityCollection Method / VolumeCollection TimeReceived TimeBloodVenous blood / UnknownVenipuncture / Fklyimz0505/29/2025 1:48 PM EDT05/29/2025 1:[address] [facility] - 05/29/2025 4:18 PM EDT Vitamin D status 25 [place] Vitamin D Deficiency <20 ng/mL Insufficiency ? 20-29 ng/mL Sufficiency ? 30-100 ng/mL Toxicity >100 ng/mL NOTE: A pediatric reference range has not been established by the sugar cane planter machine operator of this kit. The [place] [employer] recommends a Vitamin D level of = or >20ng/mL in infants and children. Authorizing ProviderResult TypeResult StatusGrand Lake Joint [facility] BLOOD ORDERABLES Final ResultPerforming OrganizationAddressCity/State/ZIP CodePhone Number [facility] [address] [place] [address], * (ABNORMAL) Protein S activity (05/29/2025 1:48 PM EDT)ComponentValueRef Range Test MethodAnalysis TimePerformed AtPathologist SignaturePROTEIN S MRLITTFQ76 (L)64 - 149 %06/05/2025 9:14 AM [facility]ATORYComment: Oral contraceptives, hormonal therapy, , acute [...] 1:48 PM EDT Narrative Authorizing ProviderResult TypeResult StatusCommunity Medical CenterLAB BLOOD ORDERABLES Final ResultPerforming OrganizationAddressCity/State/ZIP CodePhone Number [facility] [address] [place] [address], * Protein C activity (05/29/2025 1:48 PM EDT)ComponentValueRef RangeTest Method Analysis TimePerformed AtPathologist SignaturePROTEIN C IYXBQGFD94911 - 140 % 06/05/2025 9:14 AM [facility]YSpecimen (Source) Anatomical Location / LateralityCollection Method / VolumeCollection Time Received TimeBloodVenous blood / UnknownVenipuncture / Gtzfjbq2805/29/2025 1:48 PM EDT05/29/2025 1:48 PM EDT Narrative Authorizing ProviderResult TypeResult [facility] ORDERABLES Final ResultPerforming OrganizationAddressty/State/ZIP CodePhone Number [facility] [address] [place] [address], [place] [phone] * Anti thrombin 3 funct (05/29/2025 1:48 PM EDT)ComponentValueRef RangeTest MethodAnalysis TimePerformed AtPathologist SignatureANTI THROMBIN 3 MSANK4464 - 128 %06/05/2025 9:14 AM [facility]YSpecimen (Source)Anatomical Location / LateralityCollection Method / VolumeCollection TimeReceived TimeBloodVenous blood / UnknownVenipuncture / Tivydzx4205/29/2025 1:48 PM EDT05/29/2025 1:48 PM EDT Narrative Authorizing ProviderResult TypeResult [facility] BLOOD ORDERABLES Final ResultPerforming OrganizationAddressCity/State/ZIP CodePhone Number [facility] [address] [place] [address], [place] [phone] * (ABNORMAL) CBC without diff (05/29/2025 1:48 PM EDT)ComponentValueRef Range Test MethodAnalysis TimePerformed AtPathologist SignatureWBC9.84 - 11 x10E9/L 05/29/2025 3:30 PM [facility]ORATORYRBC Count3.813.8 - 5.2 X10E12/L05/29/2025 3:30 PM [facility] Pakffonuoe19.811.7 - 15.5 g/dL05/29/2025 3:30 PM [facility] DNZHIKLJSJJbgsbrblew91.8(L)35 - 47 %05/29/2025 3:30 PM [facility] NOFCNINBADNFA7559 - 100 fL05/29/2025 3:30 PM [facility] IZSYXEFEAQTHW25.927 - 34 pg05/29/2025 3:30 PM [facility] LOXHZXXKRCKJSQ49.832 - 36 g/dL05/29/2025 3:30 PM [facility] JGVHJXJQJNXMF27.511.5 - 15 %05/29/2025 3:30 PM [facility] LABORATORYPlatelet Pnxvh537728 - 450 X10E9/L05/29/2025 3:[address] [facility]ORYMPV8.47 - 12 [place]05/29/2025 3:30 PM [facility]ATORYSpecimen (Source)Anatomical Location / Laterality Collection Method / VolumeCollection TimeReceived TimeBloodVenous blood / UnknownVenipuncture / Rlxxcsi3805/29/2025 1:48 PM EDT05/29/2025 1:48 PM EDT Narrative Authorizing ProviderResult TypeResult StatusIra [facility] BLOOD ORDERABLES Final ResultPerforming OrganizationAddressCity/State/ZIP CodePhone Number [facility] [address] [place] [address], [place] [phone] * Uric acid (05/29/2025 1:48 PM EDT)ComponentValueRef RangeTest MethodAnalysis TimePerformed AtPathologist SignatureURIC ACID4.42.6 - 7.2 mg/dL05/29/2025 3:58 PM [facility]YSpecimen (Source)Anatomical Location / LateralityCollection Method / VolumeCollection TimeReceived Time BloodVenous blood / UnknownVenipuncture / Vzppeyv6405/29/2025 1:48 PM EDT 05/29/2025 1:48 PM EDT Narrative Authorizing ProviderResult TypeResult StatusEster Marie MDLAB BLOOD ORDERABLES Final ResultPerforming OrganizationAddressCity/State/ZIP CodePhone Number [facility] [address] [place] [address], [place] [phone] * B-type natriuretic peptide (05/29/2025 1:48 PM EDT)ComponentValueRef RangeTest MethodAnalysis TimePerformed AtPathologist UyngpeffnSXW00<=100 pg/mL05/29/2025 4:03 PM [facility]YSpecimen (Source)Anatomical Location / LateralityCollection Method / VolumeCollection TimeReceived Time BloodVenous blood / UnknownVenipuncture / Ywixzqp3805/29/2025 1:48 PM EDT 05/29/2025 1:48 PM EDT Narrative Authorizing ProviderResult TypeResult Lara Marie MDLAB BLOOD ORDERABLES Final ResultPerforming OrganizationAddressCity/State/ZIP CodePhone Number [facility] [address] [place] [address], [place] [phone] * Folate (05/29/2025 1:48 PM EDT)ComponentValueRef RangeTest MethodAnalysis Time Performed AtPathologist SignatureFOLIC ACID13.3>5.8 ng/mL05/29/2025 4:18 PM [facility]YSpecimen (Source)Anatomical Location / LateralityCollection Method / VolumeCollection TimeReceived TimeBloodVenous blood / UnknownVenipuncture / Gkgiymw5205/29/2025 1:48 PM EDT05/29/2025 1:48 PM EDT Narrative Authorizing ProviderResult TypeResult Lara Marie MDLAB BLOOD ORDERABLES Final ResultPerforming OrganizationAddressCity/State/ZIP CodePhone Number [facility] [address] [place] [address], * Ferritin (05/29/2025 1:48 PM EDT)ComponentValueRef RangeTest MethodAnalysis TimePerformed AtPathologist EbayvzdwtYWIYDWWC3955 - 307 ng/mL05/29/2025 4:12 PM [facility]YSpecimen (Source)Anatomical Location / LateralityCollection Method / VolumeCollection TimeReceived TimeBloodVenous blood / UnknownVenipuncture / Nqatybe1005/29/2025 1:48 PM EDT05/29/2025 1:48 PM EDT Narrative Authorizing ProviderResult TypeResult StatusEster Marie MDLAB BLOOD ORDERABLES Final ResultPerforming OrganizationAddressCity/State/ZIP CodePhone Number [facility] [address] [place] [address], * Vitamin B12 (05/29/2025 1:48 PM EDT)ComponentValueRef RangeTest MethodAnalysis TimePerformed AtPathologist SignatureVITAMIN [id number] - 914 pg/mL05/29/2025 4:20 PM [facility]YSpecimen (Source)Anatomical Location / LateralityCollection Method / VolumeCollection TimeReceived Time BloodVenous blood / UnknownVenipuncture / Xryqkfa9305/29/2025 1:48 PM EDT 05/29/2025 1:48 PM EDT Narrative Authorizing ProviderResult TypeResult StatusEster Marie MDLAB BLOOD ORDERABLES Final ResultPerforming OrganizationAddressCity/State/ZIP CodePhone Number [facility] [address] [place] [address], * MF COMPREHENSIVE ANATOMIC SURVEY (05/29/2025 12:07 PM EDT)Anatomical RegionLateralityModalityOB-GYNUltrasoundSpecimen (Source)Anatomical Location / LateralityCollection Method / VolumeCollection TimeReceived Time05/29/2025 10:13 AM EDT Narrative 06/01/2025 5:47 PM EDT NAME: ??TARA PERKINS : 1995 SEX: F Accession Number: [id number] ORDERING PHYSICIAN: ESTER MARIE REFERRING PHYSICIAN: GONZALEZ PASCAL Coding Procedures ? 46880: Ultrasound, uterus, real time with image documentation, and maternal evaluation ? plus detailed anatomic examination, transabdominal approach;single or first gestation ? 35476: Ultrasound, uterus, real time with image documentation, [...] (oz) ? 11 oz EFW by: ?Hadlock (PRN-GG-TN-FL) Extended Tibia ??24.7 mm 18w 5d 17% Natalya [employer]ty Claim Adjuster ? 5.8 mm CM ? 4.6 mm [...] Heart/Thorax: RVOT view. LVOT view. 3-vessel view. 2-ddzeap-ffcoesm view. Situs. Aortic arch view. Bicaval view. [...] Marginal cord insertion noted. Recommendations Please see [facility] documentation from today. The patient is [...] PERKINS : 1995 SEX: F Accession Number: [id number] ORDERING PHYSICIAN: ESTER MARIE REFERRING PHYSICIAN: GONZALEZ PASCAL Coding Procedures 74733: Ultrasound, uterus, real time with image documentation, and maternal evaluation plus detailed anatomic examination, transabdominalapproach;single or first gestation 08133: Ultrasound, uterus, real time with imagedocumentation, transvaginal [...] ft. Weight 108 kg, 239 lb. Initial hitrqa268 kg, 239 lb. BMI 46.68 kg/m??. Initial [...] EFW (oz) 11 oz EFW by: Hadlock (NMT-ZC-SH-FL) Extended Tibia 24.7 mm 18w 5d 17% [employer]ya [employer] Claim Adjuster 5.8 mm CM 4.6 mm 37% Nicolaides [...] Heart/Thorax: RVOT view. LVOT view. 3-vessel view. 2-gboymu-ecoivjj view.Situs. Aortic arch view. Bicaval view. Ductal [...] with thepatient as necessary. Authorizing ProviderResult TypeResult StatusEster Marie MDIMG US ORDERABLES Final Result * Ultrasound limited 1 or more fetus (05/28/2025 11:41 AM EDT) Anatomical RegionLateralityModalityOB-GYNUltrasound Narrative Authorizing ProviderResult TypeResult StatusNot In System Ref ProvIMG US ORDERABLESFinal Result * Unlisted Lab Test (05/28/2025 11:15 AM EDT) Narrative Authorizing ProviderResult TypeResult StatusNot In System Ref ProvLAB BLOOD ORDERABLESFinal ResultPerforming OrganizationAddressCity/State/ZIP CodePhone Number MANUALLY TRANSCRIBED RESULTS from Last 3 Months Insurance Advance Directives * Full Code (Latest Code Status on File) Date ActivatedDate FmvwieunudeSxxgyeme70/14/2025 9:38 AM06/23/2025 11:46 AM * Full Code Date ActivatedDate InactivatedComments04/23/2024 11:06 AM04/24/2024 4:47 PM * Full Code Date ActivatedDate MfzskpzmgbzHlxxwevb62/20/2022 11:42 PM07/31/2022 2:48 PM * Full Code Date ActivatedDate InactivatedComments11/24/2018 10:44 PM11/27/2018 4:48 PM Care Teams Team MemberRelationshipSpecialtyStart DateEnd Date Riddhi Plata MD PCP - GeneralFamily Medicine12/09/23
--- OUTSIDE RECORDS SUMMARY | 2025-07-05 19:36 | XMS_ITS ---
Author Organization [facility] Source Produ ction (ClinicalSummary Clone) Address Unknown Care Team Providers Care Alliance Consultant Name Role Phone Unavailable Primary Care Physician Unavailab le Results * [UNITY] ANEUPLOIDY NIPT Performed by: [facility] Component Value Range Date Fraction 4.8% 04/07/2025 02:56 am UTCRh(D) NIPTRhD VHCOFASK24/29/2025 02:56 am UTCSex Chromosome AneuploidyNOT OYQYIAEG20/29/2025 02:56 am UTCMonosomy XLOW RISK <1 in 02:56 am UTCTrisomy 13LOW RISK <1 in 02:56 am UTCTrisomy 18LOW RISK <1 in 02:56 am UTCTrisomy 21LOW RISK <1 in 02:56 am UTCFetal UzrFHAYVK73/29/2025 02:56 am UTCPregnancy NkdzusurtQHEGBJHAK39/29/2025 02:56 am UTCFor detailed report, see PDFSee PDF 04/07/2025 02:56 am UTC04/07/2025 02:56 am UTC Social History Observation Value Start Date End Date
--- OUTSIDE RECORDS SUMMARY | 2025-07-05 19:36 | XMS_ITS | Encounter Summary ---
Author Organization [facility] Address [address] [place] [address] Care Team Providers Care Beamer Hand Name Role Phone Riddhi Plata MD Primary Care Provider [phone] Encounter Details DateTypeDepartmentCare Team (Latest Contact Info)Vpsyyidniuf86/22/2025linisync Result Encounter [facility] Department Unsolicited Provider, Generic External Data Social History Tobacco UseTypesPacks/DayYears UsedDateSmoking Tobacco: NeverSmokeless Tobacco: NeverAlcohol UseStandard Drinks/WeekCommentsNever0 (1 standard drink = 0.6 oz pure alcohol)Caffeine intake: 1-2 cups per day coffeeEstimated Date of HrrvaoydOfzztlmwHlb98/06/2026Based on last menstrual period of 01/09/2025Sex and Gender InformationValueDate RecordedSex Assigned at BirthNot on fileLegal Sex Quduyl2511/22/2022 9:44 PM EDTGender IdentityNot on fileSexual OrientationNot on filedocumented as of this encounter Plan of Treatment DateTypeDepartmentCare Team (Latest Contact Info)Atcartzvowc73/29/2025 8:30 AM EDTRoutine [facility] [address] [place] [phone] Winter English PA [address] [place], [place] [phone] documented as of this encounter Goals GoalPatient Goal TypeAssociated ProblemsRecent ProgressPatient-Stated?Author Help patient manage antidepressant medication Care PlanPatient on antidepressant monitoring Riddhi Mcdonald MD Baseline PHQ-9 Care PlanBaseline PHQ-9NoRiddhi Plata, MDdocumented as of this encounter Procedures Procedure NamePriorityDate/TimeAssociated DiagnosisCommentsMLR HEMOGLOBIN A1C Crvhvja0207/01/2025 9:21 AM EDT ALL CBC WITH AUTO IVCPDtxbzqg61/22/2025 9:21 AM EDT documented in this encounter Results * (ABNORMAL) ALL CBC WITH AUTO DIFF (07/01/2025 9:21 AM EDT)ComponentValueRef RangeTest MethodAnalysis TimePerformed AtPathologist SignatureTBH WBC11.4(H) 4.0 - 11.0 10 3/uLTBHTBH RBC3.26(L)4.20 - 5.40 10 6/uLTBHTBH HGB10.2(L)12.0 - 16.0 g/dLTBHTBH HCT29.7(L)36.0 - 48.0 %TBHTBH MCV91.181.0 - 99.0 fLTBHTBH MCH 31.326.7 - 34.0 pgTBHTBH MCHC34.329.9 - 35.2 g/dLTBHTBH RDW13.011.0 - 15.0 % TBHTBH EIA506567 - 450 10 3/uLTBHTBH MPV9.79.5 - 13.5 fLTBHNEUTROPHILS PERCENT AUTO68.243.0 - 75.0 %TBHLYMPHOCYTES PERCENT AUTO25.520.5 - 60.0 %TBHMONOCYTES PERCENT AUTO4.51.7 - 12.0 %TBHTBH EO %0.90.9 - 7.0 %TBHBASOPHILS PERCENT AUTO 0.40.2 - 2.0 %TBHIMMATURE GRANULOCYTES PCT AUTO0.50.0 - 0.5 %TBHNEUTROPHILS ABSOLUTE AUTO7.8(H)1.4 - 6.5 10 3/uLTBHLYMPHOCYTES ABSOLUTE AUTO2.91.2 - 3.8 10 3/uLTBHMONOCYTES ABSOLUTE AUTO0.50.3 - 0.8 10 3/uLTBHTBH EO #0.10.0 - 0.7 10 3/uLTBHBASOPHILS ABSOLUTE AUTO0.10.0 - 0.1 10 3/uLTBHIMMATURE GRANULOCYTES ABS AUTO0.06(H)0.00 - 0.03 10 3/uLTBHSpecimen (Source)Anatomical Location / LateralityCollection Method / VolumeCollection TimeReceived Time07/01/2025 9:21 AM EDT1 9:38 AM EDT Narrative [facility] - 07/01/2025 9:55 AM EDT Authorizing ProviderResult TypeResult StatusGeneric External Data Provider CLINISYNCFinal ResultPerforming OrganizationAddressCity/State/ZIP CodePhone Number [facility] * MLR HEMOGLOBIN A1C (07/01/2025 9:21 AM EDT)ComponentValueRef RangeTest Method Analysis TimePerformed AtPathologist SignatureGLYCOHEMOGLOBIN A1C4.84.5 - 6.2 %TBHComment: ADA RECOMMENDED LIMIT 4.0 - 6.0 ADA THERAPEUTIC TARGET < 7.0 ACTION SUGGESTED > 7.0 ESTIMATED AVERAGE TLMMBGI48fw/dLTBHSpecimen (Source)Anatomical Location / LateralityCollection Method / VolumeCollection TimeReceived Time07/01/2025 9:21 AM EDT1 9:38 AM EDT Narrative [facility] - 07/01/2025 9:54 AM EDT Authorizing ProviderResult TypeResult StatusGeneric External Data Provider CLINISYNCFinal ResultPerforming OrganizationAddressCity/State/ZIP CodePhone Number [facility] documented in this encounter Visit Diagnoses Not on filedocumented in this encounter Additional Health Concerns Active ProblemsNoted DateDiagnosed DatePatient on antidepressant monitoring plan 4Baseline PHQ-904documented as of this encounter Care Teams Team MemberRelationshipSpecialtyStart DateEnd Date Riddhi Plata MD [address] [place] [address] PCP - GeneralFamily Medicine01/16/23documented as of this encounter
--- OUTSIDE RECORDS SUMMARY | 2025-07-05 19:36 | XMS_ITS | Encounter Summary ---
Author Organization [employer] [facility] tem Address [id number] [address] [place] [address] Care Team Providers Care Distributor Cleaner Name Role Phone Riddhi Plata MD Primary Care Provider [phone] Encounter Details DateTypeDepartmentCare Team (Latest Contact Info)Dvtbbcsxtld96/24/2025Telephone [facility]-B[facility] [address] [place] [address] Ken Manzo MD [address] [place] [address] Social History Tobacco UseTypesPacks/DayYears UsedDateSmoking Tobacco: NeverSmokeless Tobacco: NeverAlcohol UseStandard Drinks/WeekCommentsNot Currently0 (1 standard drink = 0.6 oz pure alcohol)socialSCCI HOSPITAL LIMA UtilitiesAnswerDate RecordedIn the past 12 months has [...] care, and heating?Not hard at all06/23/2025PHQ-2AnswerDate RecordedTotal Bapug014 PRAPARE - TransportationAnswerDate RecordedIn the past 12 [...] of a household?No06/23/2025hildcareAnswerDate RecordedDo problems getting child nutrition assistant make it difficult for you to work or study?No06/23/2025 EmploymentAnswerDate LzvwrigcVjbjkyagmaHlxleyq68/06/2019Hunger ScreeningAnswer Date RecordedWithin the past 12 months we worried whether our food would run out before we got money to buy more.Never True06/23/2025Within the past 12 months the food we bought just didn't last and we didn't have money to get more.Never True06/23/2025Purpose - LifeAnswerDate RecordedPurpose and direction in life Lixacvx83/27/2021Estimated Date of HqvwatnvFvqjsmotUkz47/06/2026Based on last menstrual period of 01/09/2025Sex and Gender InformationValueDate RecordedSex Assigned at ZhmznVfgrww69/20/2022 9:31 PM ESTLegal VdeAbvdqm83/06/2015 11:49 AM EDTGender XkafyjssBjumvv95/20/2022 9:31 PM ESTSexual OrientationStraight 07/30/2022 9:31 PM ESTdocumented as of this encounter Miscellaneous Notes * Telephone Encounter - Nilsa Jessica - 07/03/2025 9:38 AM EDT LMOM for pt to call the office and make an appt documented in this encounter Plan of Treatment DateTypeDepartmentCare Team (Latest Contact Info)Itstmbyjnae31/30/2025 9:45 AM EDTAppointment [facility] [address] [place] [address] 07/09/2025 11:30 AM EDTOffice Visit Maternal- Medicine at [facility] [address] [place] [address] Sana Lima MD [address] [place] [address] documented as of this encounter Goals GoalPatient [...]
--- OUTSIDE RECORDS SUMMARY | 2025-07-05 19:37 | XMS_ITS | Encounter Summary ---
Author Organization [facility] tem Address [id number] [address] [place] [address] Care Team Providers Care Burner Hand Name Role Phone Riddhi Plata MD Primary Care Provider [phone] Encounter Details DateTypeDepartmentCare Team (Latest Contact Info)Pesekjnetfw89/16/2025Orders Only Maternal- Medicine at [facility] [address] [facility] [place] [phone] Winter Gibbons LPN History of gestational diabetes in prior , currently in second trimester (PrimaryDx); History of prediabetes; History of gestational diabetes in prior , currently Social History Tobacco UseTypesPacks/DayYears UsedDateSmoking Tobacco: NeverSmokeless Tobacco: NeverAlcohol UseStandard Drinks/WeekCommentsNot Currently0 (1 standard drink = 0.6 oz pure alcohol)[employer] UtilitiesAnswerDate RecordedIn the past 12 months has the [employer], gas, oil, or water [employer] threatened to shut off services in your [...] care, and heating?Not hard at all06/23/2025PHQ-2AnswerDate RecordedTotal Hnjrr057 PRAPARE - TransportationAnswerDate RecordedIn the past 12 [...] a household?No06/23/2025hildcareAnswerDate RecordedDo problems getting child care sitter make it difficult for you to work or study?No06/23/2025 EmploymentAnswerDate JkxedbunCicgjkvuhaYrfxstm87/06/2019Hunger ScreeningAnswer Date RecordedWithin the past 12 months we worried whether our food would run out before we got money to buy more.Never True06/23/2025Within the past 12 months the food we bought just didn't last and we didn't have money to get more.Never True06/23/2025Purpose - LifeAnswerDate RecordedPurpose and direction in life Kawkqne08/27/2021Estimated Date of AmlhkityLcgdzzwkDdx10/06/2026Based on last menstrual period of 01/09/2025Sex and Gender InformationValueDate RecordedSex Assigned at NdkulUfiyyb15/20/2022 9:31 PM ESTLegal FzgEadxat16/06/2015 11:49 AM EDTGender YwerkkdtZofwdd77/20/2022 9:31 PM ESTSexual OrientationStraight 07/30/2022 9:31 PM ESTdocumented as of this encounter Plan of Treatment DateTypeDepartmentCare Team (Latest Contact Info)Hwxfqvhqjch56/30/2025 9:45 AM EDTAppointment [facility] [address] [place] [address] 07/09/2025 11:30 AM EDTOffice Visit Maternal- Medicine at [facility] [address] [place] [address] Sana Lima MD [address] [place] [address] documented as of this encounter Goals GoalPatient [...]
--- OUTSIDE RECORDS SUMMARY | 2025-07-05 19:37 | XMS_ITS | Encounter Summary ---
Author Organization [employer] tem Address [id number] [address] [place] [address] Care Team Providers Care Ventilating Engineer Name Role Phone Riddhi Plata MD Primary Care Provider [phone] Encounter Details DateTypeDepartmentCare Team (Latest Contact Info)Hfbbezqdhbs32/14/2025Travel Social History Tobacco UseTypesPacks/DayYears UsedDateSmoking Tobacco: NeverSmokeless Tobacco: NeverAlcohol UseStandard Drinks/WeekCommentsNot Currently0 (1 standard drink = 0.6 oz pure alcohol)socialAH UtilitiesAnswerDate RecordedIn the past 12 months has the [employer], gas, oil, or water [employer] threatened to shut off services in your [...] care, and heating?Not hard at all06/23/2025PHQ-2AnswerDate RecordedTotal Dubhb391/ PRAPARE - TransportationAnswerDate RecordedIn the past 12 [...] a household?No06/23/2025hildcareAnswerDate RecordedDo problems getting early childhood associate teacher make it difficult for you to work or study?No06/23/2025 EmploymentAnswerDate JuvjcoohHcwipcfqszWllrjvp74/06/2019Hunger ScreeningAnswer Date RecordedWithin the past 12 months we worried whether our food would run out before we got money to buy more.Never True06/23/2025Within the past 12 months the food we bought just didn't last and we didn't have money to get more.Never True06/23/2025Purpose - LifeAnswerDate RecordedPurpose and direction in life Ikthvdd54/27/2021Estimated Date of NkdmxpfrFitbdpycEzy02/06/2026Based on last menstrual period of 01/09/2025Sex and Gender InformationValueDate RecordedSex Assigned at RpixrVcwsdh31/20/2022 9:31 PM ESTLegal ZulFsxrab13/06/2015 11:49 AM EDTGender CtijyfqkVnefqn13/20/2022 9:31 PM ESTSexual OrientationStraight 07/30/2022 9:31 PM ESTdocumented as of this encounter Plan of Treatment DateTypeDepartmentCare Team (Latest Contact Info)Hpraolhsavs47/30/2025 9:45 AM EDTAppointment [facility] [address] [place] [phone] 07/09/2025 11:30 AM EDTOffice Visit [facility] at [facility] [address] [place] [phone] Sana Lima MD [address] [place] [address] documented as of this encounter Goals GoalPatient [...]
--- OUTSIDE RECORDS SUMMARY | 2025-07-05 19:37 | XMS_ITS | Encounter Summary ---
Author Organization [facility] Address [address] [place] [address] Care Team Providers Care Past Due Accounts Clerk Name Role Phone Riddhi Plata MD Primary Care Provider [phone] Encounter Details DateTypeDepartmentCare Team (Latest Contact Info)Uqbcqdcmgcx38/14/2025Telephone [facility] [address] [facility] [place] [place] [address] Bin Morales DO [address] [facility] [place] [address] Social History Tobacco UseTypesPacks/DayYears UsedDateSmoking Tobacco: NeverSmokeless Tobacco: NeverAlcohol UseStandard Drinks/WeekCommentsNever0 (1 standard drink = 0.6 oz pure alcohol)Caffeine intake: 1-2 cups per day coffeeEstimated Date of RiyosgguTqnlplelXtx41/06/2026Based on last menstrual period of 01/09/2025Sex and Gender InformationValueDate RecordedSex Assigned at BirthNot on fileLegal Sex Tptfiu6311/22/2022 9:44 PM EDTGender IdentityNot on fileSexual OrientationNot [...] also. Patient states that she was in [place] [facility]. Transferred to clerical to schedule appointment. documented in this encounter Plan of Treatment DateTypeDepartmentCare Team (Latest Contact Info)Cjflrtokbur24/29/2025 8:30 AM EDTRoutine [facility] [address] [place] [id number] Winter English PA [address] [place] [address] documented as of this encounter Goals GoalPatient [...] DateEnd Date Riddhi Plata MD [address] [place] [address] PCP - GeneralFamily Medicine01/16/23documented as of this encounter
--- OUTSIDE RECORDS SUMMARY | 2025-07-05 19:37 | XMS_ITS | Encounter Summary ---
Author Organization [facility] Address [address] [place] [address] Care Team Providers Care Fireproof Door Maker Name Role Phone Riddhi Plata MD Primary Care Provider [phone] Reason for Visit * ReasonCommentsMed Refill Encounter Details DateTypeDepartmentCare Team (Latest Contact Info)Trjkhjkfkcl96/18/2025Refill [facility] [address] [place] [address] Bin Morales DO [address] [facility] [address] [place], [facility] Pre-existing essential hypertension during , antepartum ([facility]); Primary hypertension; History of pulmonary embolism Social History Tobacco UseTypesPacks/DayYears UsedDateSmoking Tobacco: NeverSmokeless Tobacco: NeverAlcohol UseStandard Drinks/WeekCommentsNever0 (1 standard drink = 0.6 oz pure alcohol)Caffeine intake: 1-2 cups per day coffeeEstimated Date of CvplwaiaBkpgxsduGah24/06/2026Based on last menstrual period of 01/09/2025Sex and Gender InformationValueDate RecordedSex Assigned at BirthNot on fileLegal Sex Fowmjl7711/22/2022 9:44 PM EDTGender IdentityNot on fileSexual OrientationNot on filedocumented as of this encounter Plan of Treatment DateTypeDepartmentCare Team (Latest Contact Info)Knufgirsgna19/29/2025 8:30 AM EDTRoutine [facility] [address] [place] [address] Winter English PA [address] [place] [address] [place] [address] documented as of this encounter Goals GoalPatient Goal TypeAssociated ProblemsRecent ProgressPatient-Stated?Author Help patient manage antidepressant medication Care PlanPatient on antidepressant monitoring planRiddhi Lerma MD Baseline PHQ-9 Care PlanBaseline PHQ-9Riddhi Lerma, MDdocumented as of this encounter Visit Diagnoses Diagnosis Pre-existing essential hypertension during , antepartum ([facility]) Primary hypertension Unspecified essential hypertension History of pulmonary embolism Personal history of venous thrombosis and embolism documented in this encounter Additional Health Concerns Active ProblemsNoted DateDiagnosed DatePatient on antidepressant monitoring plan 4Baseline PHQ-904documented as of this encounter Care Teams Team MemberRelationshipSpecialtyStart DateEnd Date Riddhi Plata MD [address] [place] [address] PCP - GeneralFamily Medicine01/16/23documented as of this encounter
--- OUTSIDE RECORDS SUMMARY | 2025-07-05 19:37 | XMS_ITS | CCD ---
Author Organization [facility] Care Team Providers Care Nursing Teacher Name Role Phone PHYSICIAN, DEFAULT Admitting Unavailable PHYSICIAN, DEFAULT Attending Unavailable Unavailable Primary Care Provider UnavailDUARTE Rutherford Attending Unavailable LANITONIA Attending Unavailable GIORGI, ZAINULABEDIN Admitting Unavailable GIORGI, [...] RIDDHI Jonas Primary Care Unavailable Boni GUERRERO, [facility] Primary Care Provider Boni GUERRERO, [facility] Primary Care Provider Boni GUERRERO, [facility] Primary Care Provider [phone] Boni GUERRERO, [facility] Primary Care Provider [phone] Boni GUERRERO, [facility] Primary Care Provider Boni GUERRERO, [facility] Primary Care Provider MORIAH GUTHRIE Attending Unavailable BONI, RIDDHI F Referring Unavailable BONI, RIDDHI Mcdaniel Primary Care Unavailable CARMENBIN R Referring Unavailable BONI, RIDDHI Jonas Primary Care Unavailable PRATT, ESTER Attending Unavailable CARMENBIN R Referring Unavailable BONI, RIDDHI F Primary Care Unavailable PRATT, ESTER Referring Unavailable BONI, RIDDHI F Primary Care Unavailable BONI, RIDDHI F Primary Care Unavailable MAY DUNLAP Referring Unavailable BONI, RIDDHI F Primary Care Unavailable BONI, RIDDHI F Primary Care Unavailable ERASTO ELLSWORTH Attending Unavailable BONI, RIDDHI F Primary Care Unavailable KHUSHBOO LITTLE Admitting Unavailable KHUSHBOO LITTLE Attending Unavailable BONI, RIDDHI F Attending Unavailable BIN MORALES Attending Unavailable NED SPICER Attending Unavailable NED SPICER Attending Unavailable BONI, RIDDHI Jonas Attending Unavailable WINTER ENGLISH Attending Unavailable Allergies Allergy ClassificationReported Allergen(s)Allergy TypeDate of OnsetReaction(s) Facility (4 sources)[facility]83-44-1125[facility] (20 sources)SUMAtriptan; Translations: [SUMATRIPTAN]Drug [id number] Anaphylaxis, Unknown, Other (See Comments)[facility] Phone: Medications Current Medications MedicationDrug Class(es)DatesSig (Normalized)Sig (Original)acetaminophen 300 mg / codeine phosphate 30 mg oral tablet (2 sources)Opioid AgonistStart: 06-24-2025 End: 81-80-9307hpal 1 tablet by mouth every six hours for painacetaminophen- codeine (Tylenol w/ Codeine #3) 300-30 MG tablet Indications: Gallstones and inflammation of gallbladder without obstruction Take 1 tablet by mouth every 6 (six) hours if needed for severe pain for up to 5 days 20 tablet 06/24/2025 06/29/2025 Activeacetaminophen 325 mg / oxyCODONE hydrochloride 5 mg oral tablet (7 sources)Opioid AgonistStart: 04-24-2024 End: 58-20-0459wniELUDBY-acetaminophen (PERCOCET) 5-325 mg per tablet Indications: Acute post-operative pain Take 1 tablet by mouth every 6 (six) hours as needed for pain for up to 7 days. Max Daily Amount: 4 tablets 15 tablet 04/24/2024 05/01/2024 ActiveStart: 04-23-2024 End: 49-66-6303fenr 2 tablets by mouth every four hours as needed for pain2 tablet, oral, Every 4 hours PRN, severe pain - pain scale 7-10, Starting on Sun04/23/24 at 1412, Look-alike/sound-alike medication - verify indication for use. aspirin 81 mg delayed release oral tablet (7 sources)Platelet Aggregation Inhibitor, Nonsteroidal Anti-inflammatory Drug Start: 55-53-9114kuyf 1 tablet by mouth in the morningaspirin 81 mg Indications: 20 weeks gestation of , Chronic hypertension affecting Take 1 tablet (81 mg total) by mouth in the morning. 30 tablet 6 05/29/2025 Active Start: 74-22-5896376 mg, Oral, DAILY, First dose on Sun12/01/21 at 0015, Until Discontinued Please give ASA dose upon admission if not done in ER then DAILY azithromycin 500 mg oral tablet (6 sources)Macrolide AntimicrobialStart: 08-20-2024 End: 08-90-9869gkmkxmyjfxby (Zithromax) 500 MG tablet 08/20/2024 03/20/2025 DiscontinuedbusPIRone hydrochloride 15 mg oral tablet (20 sources)Start: 07-04-2023 End: 41-13-7529vlwq 1 tablet by mouth twice daily at bedtimebusPIRone (Buspar) 15 MG tablet Indications: Anxiety TAKE 1 TABLET BY MOUTH 2 TIMES A DAY (MORNING AND BEFORE BEDTIME) 180 tablet 11 05/25/2025 ActiveStart: 07-04-2023 End: 47-94-5428kmrw 50 mg by mouth in the morningbuspirone HCl (BUSPIRONE ORAL) Take 50 mg by mouth in the morning and 50 mg before bedtime. 07/04/2023 07/03/2024Start: 07-04-2023 End: 03-45-5161axye 50 mg by mouth in the morningbuspirone HCl (BUSPIRONE ORAL) Take 50 mg by mouth in the morning and 50 mg before bedtime. 07/04/2023 07/03/2024 ActiveStart: 07-04-2023 End: 04-55-2869qtde 50 mg by mouth in the morningbuspirone HCl (BUSPIRONE ORAL) Take 50 mg by mouth in the morning and 50 mg before bedtime. 0 07/04/2023 07/03/2024 Activecalcium carbonate 500 mg chewable tablet (1 source)Start: 25-09-6437dkvyxes carbonate (TUMS) chewable tablet 1,000 mg10 ml calcium gluconate 100 mg/ml injection (1 source)Start: 07-01-7071hrjvlnh gluconate 10 % injection 1,000 mgcefuroxime 500 mg oral tablet (2 sources)Cephalosporin AntibacterialStart: 08-25-2024 End: 08-33-3509vhgx 1 tablet by mouth in the morningcefuroxime (Ceftin) 500 MG tablet Indications: Non-recurrent acute serous otitis media of left ear Take 1 tablet (500 mg) by mouth in the morning and 1 tablet (500 mg) before bedtime. Do all this for14 days. 28 tablet 08/25/2024 09/08/2024 Activecephalexin 500 mg oral capsule (2 sources)Cephalosporin AntibacterialStart: 06-12-2024 End: 12-73-9616yppt 1 capsule by mouth in the morning, [...] oral tablet (20 sources)Vitamin DStart: 06-01-2025 End: 29-88-8519znqv 1 tablet by mouth once in the morningcholecalciferol 1,000 units tablet Indications: Vitamin D deficiency Take 1 tablet (1,000 Units total) by mouth in the morning for 30 days. 30 tablet 3 06/01/2025 07/01/2025 Active Start: 03-27-2024 End: 42-66-4869egvi 1 tablet by mouth every weekcholecalciferol, vitamin D3, 50,000 units tablet Indications: Vitamin D deficiency Take 1 tablet (50,000 Units total) by mouth once a week. 12 tablet 03/27/2024 01/01/2025 Discontinued (Therapy completed)Start: 05-31-2023 End: 58-10-9206xpxm 1 tablet by mouth two times weeklycholecalciferol, vitamin D3, 50,000 units tablet Indications: Vitamin D deficiency Take 1 tablet (50,000 Units total) by mouth 2 (two) times a week. 24 tablet 0 05/31/2023 09/27/2023 DiscontinuedStart: 05-30-2023 End: 69-02-7532Z8-50 1.25 MG (02449 UT) capsule 05/30/2023 03/20/2025 Discontinuedcitalopram 20 mg oral tablet (20 sources)Serotonin Reuptake InhibitorStart: 02-01-2024 End: 88-73-8225gffj 1 tablet by mouth in the morningcitalopram (CeleXA) 20 MG tablet Indications: Anxiety Take 1 tablet (20 mg) by mouth in the morning. 100 tablet 3 02/01/2024 ActiveStart: 79-81-7500cbkd 1 tablet by mouth once daily citalopram (CELEXA) 10 MG tablet Take 1 tablet by mouth daily 30 tablet 3 11/27/2021 ActivediphenhydrAMINE hydrochloride 25 mg oral tablet (2 sources)Histamine-1 Receptor AntagonistStart: 39-46-8435vblfwryvbdTNSLD (BENADRYL) tablet 25 mgdocusate sodium 50 mg / sennosides, senior care 8.6 mg oral tablet (6 sources)Start: 21-44-7237ueps 1 tablet by mouth in the morningsennosides- docusate sodium (SENOKOT-S) 8.6-50 mg Take 1 tablet by mouth in the morning. 30 tablet Active0.4 ml enoxaparin sodium 100 mg/ml prefilled syringe (13 sources)Low Molecular Weight HeparinStart: 48-81-9100qlhxsp 0.4 mL by subcutaneous injection at bedtimeenoxaparin (LOVENOX) 40 mg/0.4 mL syringe Indications: 20 weeks gestation of , History ofmaternal pulmonary embolus Inject 0.4 mL (40 mg total) under the skin in the morning and at bedtime. 12 mL 11 05/29/2025 ActiveStart: 04-25-2024 End: 07-92-9569pgsykg 0.4 mL by subcutaneous injection onceenoxaparin (LOVENOX) 40 mg/0.4 mL syringe Indications: Class 3 severe obesity due to excess calories with serious comorbidity and body mass index (BMI) of 60.0 to 69.9 in adult ([facility]) , History ofpulmonary embolism Inject 0.4 mL (40 mg total) under the skin Every 12 (twelve) hours for 14 days. 11.2 mL 04/25/2024 04/24/2024 DiscontinuedStart: 04-24-2024 End: 87-89-2210bezauf 0.4 mL by subcutaneous injection onceenoxaparin (LOVENOX) 40 mg/0.4 mL syringe Indications: Class 3 severe obesity due to excess calories with serious comorbidity and body mass index (BMI) of 60.0 to 69.9 in adult ([facility]) , History ofpulmonary embolism Inject 0.4 mL (40 mg total) under the skin Every 12 (twelve) hours for 14 days. 11.2 mL 04/24/2024 05/08/2024 Active Start: 04-24-2024 End: 77-78-188108 mg, subcutaneous, Every 12 hours scheduled, First [...] mg oral tablet (12 sources)Start: 01-02-2025 End: 71-67-7923pptk 1 tablet by mouth in the morningferrous sulfate 325 (65 FE) MG tablet Indications: History of Bonnie-en-Y gastric bypass , Postsurgical malabsorption , Malnutrition following gastrointestinal surgery , Iron deficiency Take 1 tablet (325 mg total) by mouth in the morning. 90 tablet 1 06/08/2025 ActiveStart: 84-53-0518tsgm 325 mg by mouth once daily at breakfast 325 mg, Oral, DAILY WITH BREAKFAST, First dose on Sun12/01/21 at 0800, Until DiscontinuedStart: 16-00-4957mjwd 1 tablet by mouth once daily at breakfast ferrous sulfate (IRON 325) 325 (65 Fe) MG tablet Indications: Iron deficiency anemia secondary to inadequate dietary iron intake Take 1 tablet by mouth daily (with breakfast) 180 tablet 1 11/30/2021 ActiveStart: 06-87-4029oqeeidg sulfate (FE TABS 325) EC tablet 325 mgfluticasone propionate 0.05 mg/actuat metered dose nasal spray (10 sources)CorticosteroidStart: 11-12-2023 End: 44-79-3840rmdufbtepun (Flonase) 50 MCG/ACT nasal spray 11/12/2023 03/20/2025 Discontinuedfolic acid 0.4 mg oral tablet (8 sources)Start: 68-47-0662diwm 1 tablet by mouth in the morningfolic acid (FOLVITE) 400 MCG tablet Take 1 tablet (400 mcg total) by mouth in the morning. 30 tablet 6 06/08/2025 ActiveStart: 01-02-2025 End: 34-91-4612jmxc 1 tablet by mouth in the morningfolic acid (FOLVITE) 1 mg tablet Indications: History of Bonnie-en-Y gastric bypass , Postsurgical mal absorption , Malnutrition following gastrointestinal surgery , Folate deficiency Take 1 tablet (1 mg total) by mouth in the morning. 90 tablet 01/02/2025 06/08/2025 DiscontinuedhydrOXYzine hydrochloride 25 mg oral tablet (2 sources)AntihistamineStart: 16-90-8573ydpvPSXqvux (ATARAX) tablet 25 mg labetalol hydrochloride 200 mg oral tablet (20 sources)beta-Adrenergic BlockerStart: 05-04-2025 End: 19-35-4757gpwi 1 tablet by mouth in the morning, then take 1 tablet by mouth in the evening, then take 1 tablet by mouth at bedtimelabetalol (Normodyne) 200 MG tablet Indications: Pre-existing essential hypertension during , antepartum ([facility]) , Primary hypertension , History of pulmonary embolism Take 1 tablet (200 mg) by mouth in the morning and 1 tablet (200 mg) in the evening and 1 tablet (200 mg) before bedtime. 90 tablet 1 05/04/2025 ActiveStart: 52-93-7888nmux 600 mg by mouth four times ghuki715 mg, Oral, 4 TIMES DAILY, First dose on Belk[place] 12/01/21 at 0015, Until DiscontinuedStart: 11-28-2021 End: 79-65-0286sgyj 2 tablets by mouth four times dailylabetalol (NORMODYNE) 300 MG tablet Take 2 tablets by mouth 4 times daily 60 tablet 3 11/28/2021 Active Start: 11-27-2021 End: 62-62-2616xbykenxpb (NORMODYNE) tablet 600 mgStart: 11-27-2021 End: 81-68-6365tiem 3 tablets by mouth at bedtimelabetalol (NORMODYNE) 200 MG tablet Take 3 tablets by mouth in the morning, at noon, and at vrowrsz680 tablet 1 11/27/2021 11/28/2021 Discontinued (REORDER)Start: 57-79-5810vjhuuaxpd (NORMODYNE;TRANDATE) 5 MG/ML injectionStart: 78-94-6275onujrqfzm (NORMODYNE;TRANDATE) injection 40 mgStart: 11-26-2021 End: 60-44-0936xxqxsrwry (NORMODYNE) tablet 400 mgStart: 33-74-5148lvsyifwrx (NORMODYNE;TRANDATE) injection 20 mgStart: 11-23-2021 End: 12-37-5541jgxbrkfrw (NORMODYNE) 200 MG tabletmagnesium oxide 400 mg oral tablet (2 sources)Start: 08-42-8663vnhu 1 tablet by mouth once dailymagnesium oxide (MAG-OX) 400 MG tablet TAKE 1 TABLET BY MOUTH EVERY DAY 0 08/25/2021 Zhctqn760 ml magnesium sulfate 10 mg/ml injection (5 sources)Start: 22-09-4303jwbf 1000 mg intravenously every hour as needed1,000 [...] in Patients with CrCl<30ml/min Start: 11-26-2021 End: 00-36-4271jwsvwkoyu sulfate (21758 mg/500mL infusion)Start: 11-25-2021 End: 53-27-7422umdiqooix sulfate 2000 mg in 50 mL IVPB premixmelatonin 5 mg oral tablet (1 source)Start: 56-59-5512pbawknzfn tablet 5 mgNIFEdipine 90 mg osmotic 24 hr extended release oral tablet (10 sources)Dihydropyridine Calcium Channel BlockerStart: 36-70-1767nuqd 1 tablet by mouth once dailyNIFEdipine (PROCARDIA XL) 90 MG extended release tablet Take 1 tablet by mouth daily 30 tablet 3 11/28/2021 ActiveStart: 11-28-2021 End: 97-66-4468eqim 1 tablet by mouth once dailyNIFEdipine (PROCARDIA XL) 60 MG extended release tablet Take 1 tablet by mouth daily 30 tablet 3 11/28/2021 11/28/2021 Discontinued (Stop Taking at Discharge)Start: 02-98-1838JMQDzzvhwc (PROCARDIA XL) extended release tablet 90 mgStart: 11-26-2021 End: 16-79-1784FSLRspiizu (PROCARDIA XL) extended release tablet 30 mg ondansetron 4 mg disintegrating oral tablet (18 sources)Serotonin-3 Receptor AntagonistStart: 03-20-2025 End: 03-35-5337kzzs 1 tablet by mouth every six hours for nauseaondansetron ODT (Zofran-ODT) 4 MG disintegrating tablet Indications: , unspecified gestational age ([facility]) , Nausea Take 1 tablet (4 mg) by mouth every 6 (six) hours if needed for nausea or vomiting 30 tablet 3 03/20/2025 04/19/2025 Active Start: 04-24-2024 End: 78-55-1733koae 1 tablet by mouth every six hours as needed for nausea and vomitingondansetron ODT (ZOFRAN ODT) 4 mg disintegrating tablet Dissolve 1 tablet (4 mg total) on tongue every 6 (six) hours as needed for nausea or vomiting. 20 tablet 1 04/24/2024 01/01/2025 DiscontinuedStart: 04-23-2024 End: 37-99-7886ctba 4 mg intravenously every four hours as needed for nausea and vomitingStart: 11-30-2021 End: 25-14-1953ncdtgkkoqoq (ZOFRAN) injection 4 mgStart: 11-26-2021 End: 06-10-3334ibprqwthshr (ZOFRAN-ODT) disintegrating tablet 4 mgStart: 78-64-4333svqmmobnglm (ZOFRAN-ODT) 4 MG disintegrating tablet DISSOLVE 1 TABLET EVERY 6 HOURS NEEDED FOR NAUSEA AND VOMITING 0 10/25/2021 Active End: 07-66-9155xqud 1 tablet by mouth every eight hours as needed for nausea and vomitingondansetron (ZOFRAN) 4 mg tablet Take 1 tablet (4 mg total) by mouth every 8 (eight) hours as needed for nausea or vomiting. 05/29/2025 Discontinued ondansetron (ZOFRAN-ODT) disintegrating tablet 4 mg (1 source)Start: 93-21-4382hitdtpcpodt (ZOFRAN-ODT) disintegrating tablet 4 mg oseltamivir 75 mg oral capsule (2 sources)Neuraminidase InhibitorStart: 10-10-2024 End: 38-40-9263ffxf 1 capsule by mouth in the morningoseltamivir (Tamiflu) 75 MG capsule Indications: Influenza A Take 1 capsule (75 mg) by mouth in themorning and 1 capsule (75 mg) before bedtime. Do all this for 5 days. 10 capsule 10/10/2024 10/15/2024 ActivePotassium Chloride (1 source)Start: 48-81-1239agjvyqehp chloride (KLOR-CON M) extended release tablet 40 mEqpredniSONE 20 mg oral tablet (6 sources)Start: 08-20-2024 End: 41-58-9604sgqyvsVTHR (Deltasone) 20 MG tablet 08/20/2024 03/20/2025 Discontinuedprenatal 115/iron/folic acid ( 19 ORAL) (7 sources) 115/iron/folic acid ( 19 ORAL) Take by mouth. Active Vit-Fe Fumarate-FA ( Vitamins) 28-0.8 MG tablet (15 sources)Start: 03-20-2025 End: 06-68-4679rslq 1 tablet by mouth once dailyPrenatal Vit-Fe Fumarate-FA ( Vitamins) 28-0.8 MG tablet Indications: , unspecified gestational age ([facility]) , Encounter for supervision of normal first in first trimester([facility]) Take 1 tablet by mouth Daily 30 tablet 6 03/20/2025 03/20/2026 Activeprenatal vitamin plus iron 29-1 MG tablet 1 tablet (1 source)Start: 20-57-5823awbfpksu vitamin plus iron 29-1 MG tablet 1 tablet rivaroxaban (3 sources)Factor Xa InhibitorStart: 12-01-2021 End: 49-52-8561gotckmtogpp (XARELTO) tablet 15 mgStart: 69-27-4988navqjuwkksp 15 & 20 MG Starter Pack Take as directed on package. 1 each 0 12/01/2021 Mlhncr44 hr scopolamine 0.0139 mg/hr transdermal system (1 source)AnticholinergicStart: 03-27-2024 End: 57-31-9566pfnke 1 dose transdermal route once dailyscopolamine (TRANSDERM- SCOP) 1 mg/3 days Indications: PONV (postoperative nausea and vomiting) Place 1 patch on the skin once for [address] behind ear night before surgery. Wash hands immediatelyafter applying. 1 patch 03/27/2024 03/27/2024 Activesertraline 100 mg oral tablet (12 sources)Serotonin Reuptake Inhibitor End: 23-31-6227lrmatmfhlx (Zoloft) 100 MG tablet 03/20/2025 Discontinued End: 44-52-9139nqgd 1 tablet by mouth once dailysertraline (ZOLOFT) 50 MG tablet Take 50 mg by mouth daily 0 11/27/2021 Discontinued (Stop Taking at Discharge) syringe with needle (BD LUER-KARENA SYRINGE) 3 mL 25 x 1 1/2 syringe (10 sources)Start: 33-65-7901kuabyaf with needle (BD LUER-KARENA SYRINGE) 3 mL 25 x 1 1/2 syringe Indications: History of Bonnie-en-Y gastric bypass , Postsurgical malabsorption , Malnutrition following gastrointestinal surgery , B12 deficiency 1 SYRG by miscellaneous route every 30 (thirty) days. 3 each 1 01/02/2025 ActiveStart: 07-76-3318lhcnmgh with needle (BD LUER-KARENA SYRINGE) 3 mL 25 x 1 1/2 syringe Indications: Malnutrition following gastrointestinal surgery , Postsurgical malabsorption , H/O gastric bypass 1 SYRG by miscellaneo us route every 30 (thirty) days. 3 each 06/04/2024 Activevitamin b12 1 mg/ml injectable solution (20 sources)Vitamin Q72Evunj: 01-01-2025 End: 16-80-1880pauhvbmapafhii (VITAMIN B-12) injection 1,000 mcgStart: 01-01-2025 End: 45-20-2774zmysgm 1000 ug by intramuscular injection once1,000 mcg, intramuscular, Once, On Sun01/01/25 at 1230, For 1 doseStart: 06-04-2024 cyanocobalamin (Vitamin B-12) 1000 MCG/ML injection 07/14/2024 ActiveStart: 06-04-2024 End: 36-66-9444ikhgziyxxukqec (VITAMIN B-12) injection 1,000 mcgStart: 06-04-2024 End: 39-80-1658djtuuh 1000 ug by intramuscular injection once1,000 mcg, intramuscular, Once, On Sun06/04/24 at 1130, For 1 dose Completed/Discontinued Medications MedicationDrug Class(es)DatesSig (Normalized)Sig (Original)acetaminophen 500 mg oral tablet (5 sources)Start: 04-23-2024 End: 65-35-4735uupb 1000 mg by mouth once1,000 mg, oral, Once, On Sun04/23/24 at 0800, For 1 dose, Pre-opStart: 02-06-9855ydeqxbnnreffh (TYLENOL) tablet 650 mg Start: 11-25-2021 End: 15-24-6585xiregyvdlyril (TYLENOL) tablet 1,000 mgtake 3 tablets by mouth every eight hours as needed for painacetaminophen (TYLENOL EXTRA STRENGTH) 500 mg tablet Indications: pain Take 3 tablets (1,500 mg total) by mouth every 8 (eight) hours as needed for pain Indications: pain. Activeacetaminophen 325 mg / HYDROcodone bitartrate 5 mg oral tablet (1 source)Opioid AgonistStart: 12-05-2021 End: 28-19-2677VSJFLqbzghl-acetaminophen (NORCO) 5-325 MG per tablet 1 tablet albuterol 0.83 mg/ml inhalation solution (20 sources)beta2-Adrenergic AgonistStart: 04-23-2024 End: 63-39-9016gigq 2.5 mg by inhalation every six hours as needed for wheezing and dyspneaStart: 70-67-4593ihqy 2 puff(s) by inhalation every four hours albuterol HFA 90 mcg/act inhaler Indications: Moderate persistent asthma without complication (HCC)Inhale 2 puffs every 4 (four) hours if needed for shortness of breath 18 g 3 02/01/2024 ActiveStart: 96-56-6696rxjf 2 puff(s) by inhalation every four hours as needed for wheezingalbuterol (PROVENTIL HFA;VENTOLIN HFA) 90 mcg/actuation inhaler Indications: Mild intermittent asthma, unspecified whether complicated Inhale 2 puffs every 4 (four) hours as needed for wheezing. 18 g109/27/2021 Activeapixaban 5 mg oral tablet (1 source)Factor Xa InhibitorStart: 12-01-2021 End: 22-40-3623bnrzqjti starter pack (ELIQUIS DVT/PE STARTER PACK) 5 MG TBPK tablet Take 1 tablet by mouth See Admin Instructions 74 tablet 0 12/01/2021 12/01/2021 Discontinued (Stop Taking at Discharge)aprepitant 40 mg oral capsule (1 source)Substance P/Neurokinin-1 Receptor AntagonistStart: 04-23-2024 End: 24-16-9196ufat 40 mg by mouth once40 mg, oral, Once, On Sun04/23/24 at 0800, For 1 dose, Pre-opcalcium chloride 0.0014 meq/ml / potassium chloride 0.004 meq/ml / sodium chloride 0.103 meq/ml / sodium lactate 0.028 meq/ml injectable solution (4 sources)Start: 04-23-2024 End: 84-47-8717uymy 100 mL intravenously every ulwg715 mL/hr, intravenous, Continuous, Starting on Sun04/23/24 at 1415Start: 11-26-2021 End: 84-83-9025NvkemQTMfqd, at 125 mL/hr, CONTINUOUS, Starting on Sun11/26/21 at 0645Start: 11-26-2021 End: 03-71-5210egoaasab ringers infusioncyclobenzaprine hydrochloride 10 mg oral tablet (10 sources)Muscle RelaxantStart: 12-15-2024 End: 45-66-0486hjcg 1 tablet by mouth twice daily as needed for muscle spasms cyclobenzaprine (FLEXERIL) 10 mg tablet Take 1 tablet (10 mg total) by mouth 2 (two) times a day asneeded for muscle spasms. 10 tablet 12/15/2024 01/01/2025 DiscontinuedStart: 04-24-2024 End: 57-16-5410vqaz 1 tablet by mouth three times daily as needed for muscle spasmscyclobenzaprine (FLEXERIL) 10 mg tablet Take 1 tablet (10 mg total) by mouth 3 (three) times a day as needed for muscle spasms. 20 tablet 04/24/2024 01/01/2025 Discontinueddocusate sodium 100 mg oral capsule (16 sources)Start: 03-27-2024 End: 91-11-9784cozp 1 capsule by mouth in the morning, then take 1 capsule by mouth every week at bedtimedocusate sodium (COLACE) 100 mg capsule Indications: Constipation, unspecified constipation type Take 1 capsule (100 mg total) by mouth in the morning and 1 capsule (100 mg total) before bedtime. Start one week prior to surgery and continue two weeks after surgery.. 42 capsule 04/17/2024 01/01/20253005Dbrohaozbacj7 ml fentaNYL 0.05 mg/ml injection (1 source)Opioid AgonistStart: 04-23-2024 End: mcg, intravenous, Every 5 min PRN, Pain Scale 6-10, Starting on Sun04/23/24 at 1058, PACU (only), Up to a maximum dose of 150 mcg. Look-alike/sound-alike medication - verify indication for use.glucagon (rdna) 1 mg injection (1 source)Antihypoglycemic AgentStart: 04-23-2024 End: 60-78-1197020 ml glucose 50 mg/ml injection (3 sources)Start: 04-23-2024 End: 75-12-7352Mbxos: 04-23-2024 End: 39-24-5238Rrhpv: 04-23-2024 End: ml heparin sodium, porcine 5000 unt/ml injection (4 sources)Unfractionated Heparin, Anti-coagulantStart: 04-23-2024 End: 32-09-0149ewcgnr 5000 [IU] by subcutaneous injection once5,000 Units, subcutaneous, Once, On Sun04/23/24 at 0845, For 1 dose, Look-alike/sound-alike medication - verify indication for use. Observe for bleeding.Start: 11-30-2021 End: 22-02-2907mlenfei (porcine) injection 10,000 UnitsStart: 11-30-2021 End: -30 [...] mg/ml injection (6 sources)Arteriolar VasodilatorStart: 11-28-2021 End: 74-95-7550bwrzMMVVRTG (APRESOLINE) injection 10 mgStart: 11-28-2021 End: 54-70-3772swyyNPOSXFJ (APRESOLINE) injection 10 mgStart: 11-28-2021 End: 13-26-6501kachIRTHJLJ (APRESOLINE) injection 10 mgStart: 11-27-2021 End: 78-84-3463qxhgXGWQYUF (APRESOLINE) injection 10 mgStart: 11-27-2021 End: 63-65-4892wnocIDVONFO (APRESOLINE) 20 MG/ML injectionStart: 11-25-2021 End: 30-40-3801gkdyYEKGLJW (APRESOLINE) injection 10 mghyoscyamine sulfate 0.125 mg disintegrating oral tablet (1 source)Start: 04-23-2024 End: 13-55-9948qnnv 125 ug under the tongue four times xjuha363 mcg, sublingual, 4 times daily, First dose on Sun04/23/24 at 1200ibuprofen 800 mg oral tablet (4 sources)Nonsteroidal Anti-inflammatory DrugStart: 07-14-2023 End: 79-30-7859vzwg 1 tablet by mouth every six hours as needed for pain ibuprofen (MOTRIN) 800 mg tablet Take 1 tablet (800 mg total) by mouth every 6 (six) hours as needed for pain. 30 tablet 0 07/14/2023 09/27/2023 Discontinued Start: 48-49-9190vbcyewykz (ADVIL;MOTRIN) tablet 600 mgiopamidol (ISOVUE-370) 76 % injection 75 mL (1 source)Start: 11-30-2021 End: 91-17-4425nkpbvjxsm (ISOVUE-370) 76 % injection 75 mLiopamidol (ISOVUE-370) 76 % injection 85 mL (1 source)Start: 11-26-2021 End: 10-00-3247xmxnlvycu (ISOVUE-370) 76 % injection 85 mL1 ml ketorolac tromethamine 15 mg/ml injection (2 sources)Nonsteroidal Anti-inflammatory Drug, Cyclooxygenase InhibitorStart: 04-23-2024 End: 19-66-6029hklj 15 mg intravenously every six hours15 mg, [...] dose + 120mg/24 hours. Start: 11-26-2021 End: 35-34-0368obnwzejpg (TORADOL) injection 30 mglidocaine 0.05 mg/mg medicated patch (3 sources)Antiarrhythmic, Amide Local AnestheticStart: 07-14-2023 End: 82-38-6303dltjl 1 dose transdermal route once daily, then apply 1 dose transdermal route every twelve hourslidocaine (LIDODERM) 5 % Place 1 patch on the skin daily. Remove & Discard patch within 12 hours or as directed by 15 patch 0 07/14/2023 09/27/2023 Discontinuedlisinopril 10 mg oral tablet (20 sources)Angiotensin Converting Enzyme InhibitorStart: 04-24-2024 End: 00-13-0101lepq 10 mg by mouth once daily10 mg, oral, Daily, First dose on Sun04/24/24 at 0900, Look-alike/sound-alike medication - verify indication for use.Start: 03-04-2024 End: 12-45-6887enid 1 tablet by mouth once dailylisinopril 20 MG tablet Indications: Gastroesophageal reflux disease without esophagitis Take 1 tablet (20 mg) by mouth Daily 100 tablet 3 03/04/2024 06/12/2024 Discontinued (Therapy completed) End: 37-61-7557zpho 0.5 tablet by mouth in the morninglisinopriL [...] hydroxide 80 mg/ml oral suspension (1 source)Start: 81-46-2470jmgz 30 mL by mouth once daily as mL, Oral, DAILY PRN, Starting on Sun11/30/21 at 2358, Until Discontinued, Constipation First line therapy for constipation.osmotic 24 hr metFORMIN hydrochloride 500 mg extended release oral tablet (3 sources)Biguanide End: 43-66-7993fcbn 1 tablet by mouth once daily at breakfastmetFORMIN (FORTAMET) 500 MG (OSM) 24 hr tablet Take 1 tablet (500 mg total) by mouth daily with breakfast. 0 09/27/2023 Discontinued1 ml morphine sulfate 4 mg/ml injection (2 sources)Opioid AgonistStart: 04-23-2024 End: 40-33-5864paze 4 mg intravenously every two hours as neededStart: 11-30-2021 End: 11-82-9015sqspbmfw (PF) injection 2 mgnitroglycerin 0.4 mg sublingual [...] capsule (20 sources)Proton Pump InhibitorStart: 04-24-2024 End: 50-99-3742lumj 1 capsule by mouth once daily before breakfastomeprazole (PriLOSEC) 40 mg capsule Take 1 capsule (40 mg total) by mouth every morning before breakfast. 90 capsule 04/24/2024 05/29/2025 DiscontinuedStart: 2020 End: 36-69-4963ueocqwjwzx (PriLOSEC) [address] capsule Indications: Gastroesophageal reflux disease without esophagitis TAKE 1 CAPSULE BY MOUTH DAILY 30 MINUTES BEFORE MORNING MEAL 100 capsule 3 02/01/2024 Activetake 1 tablet by mouth in the morningomeprazole (PriLOSEC OTC) 20 mg EC tablet Take 1 tablet (20 mg total) by mouth in the morning. Ucyvvt81 hr orphenadrine citrate 100 mg extended release oral tablet (3 sources)Muscle RelaxantStart: 07-14-2023 End: 13-11-8408obio 1 tablet by mouth in the morning, then take 1 tablet by mouth every twelve hours at bedtimeorphenadrine (NORFLEX) 100 mg 12 hr tablet Take 1 tablet (100 mg total) by mouth in the morning and1 tablet (100 mg total) before bedtime. 20 tablet 0 07/14/2023 09/27/2023 Discontinuedpantoprazole 40 mg delayed release oral tablet (1 source)Proton Pump InhibitorStart: 04-23-2024 End: 91-26-424128 mg, oral, Daily, First dose on Sun04/23/24 at 1500, Look-alike/sound-alike medication - verify indication for use. If patient is receiving enteral feeding, consider alternative PPI or continue IV pantoprazole until the delayed-release tablet can be taken orally, Indication: GERDprenatal vit 10-iron fum-folic 65-1 mg tablet (3 sources)Start: 02-22-2023 End: 87-78-9485okzv 1 tablet by mouth in the morningprenatal vit 10-iron fum- folic 65-1 mg tablet Indications: Morbid obesity (CMS-HCC) , Preop testingTake 1 tablet by mouth in the morning. 90 tablet 3 02/22/2023 09/27/2023 Discontinued Start: 76-41-3389tyeg 1 tablet by mouth in the morningprenatal vit 10-iron fum- folic 65-1 mg tablet Indications: Morbid obesity (CMS-HCC) , Preop testingTake 1 tablet by mouth in the morning. 90 tablet 3 02/22/2023 Activeprochlorperazine 5 mg/ml injectable solution (1 source)PhenothiazineStart: 04-23-2024 End: 63-33-5737xrke 5 mg intravenously every six hours as needed for nausea and vomiting5 ml sodium chloride 9 mg/ml injection (9 sources)Start: 34-89-4889frkc 1 dose intravenously twice daily5-40 mL, IntraVENous, EVERY 12 HOURS SCHEDULED (2 times per day), First dose on Belkis 12/01/21 at 0900, Until Discontinued For Line Patency: [...] Midline or Central Line = 20 mL/lumenStart: 58-89-1889scha 25 mL intravenously every hour as rjkxac52 mL, IntraVENous, at 100 mL/hr, PRN, If patient receiving piggyback infusions without ordered maintenance IV fluids or with frequent/long duration piggyback infusions, Starting on Sun11/30/21 at 2358 Administer at the same rate as the piggyback being infused.Start: 11-30-2021 take 10 mL intravenously once as ckhwfi54 mL, IntraVENous, PRN, Starting on Sun11/30/21 at 2358, Until Discontinued, Line Care, After every IV line useStart: 11-30-2021 End: 76-37-9040ixbjxr chloride flush 0.9 % injection 10 mLStart: 11-30-2021 End: .9 % sodium chloride bolusStart: 16-27-2844uuxl 1 dose intravenously twice daily5-40 mL, IntraVENous, [...] Midline or Central Line = 20 mL/lumenStart: 97-92-9514eqbr 25 mL intravenously every hour as orsvgd90 mL, IntraVENous, at 100 mL/hr, PRN, If [...] 50 mL IVPB (1 source)Start: 04-23-2024 End: 34-84-9789aqktlhioqcp, at 102 mL/hr, Administer over 30 Minutes, Once, On Sun04/23/24 at 1130, For 1 dose, PACU (only), Look-alike/sound-alike medication - verify indication for use. Problems Active Problems Problem ClassificationProblemDateDocumented DateEpisodic/ChronicAbdominal pain (3 sources)Right upper quadrant pain; Translations: [Right upper quadrant pain] Onset: 918473-76-8136XgnhsbutHaobcwnbns disorders (20 sources)Adjustment disorder with anxious mood; Translations: [Adjustment disorder with anxiety]Onset: 408365-31-1534OkzpztkRqejcvm disorders (20 sources)Anxiety; Translations: [Anxiety disorder, unspecified]Onset: 074886-65-5717WfddgraByvxkw (20 sources)Mild intermittent asthma, uncomplicated; Translations: [Asthma] Onset: 259478-84-4308NhhdrmdIuhizel tract disease (3 sources)Calculus of gallbladder without cholecystitis without obstruction; Translations: [Gallbladder calculus with acute cholecystitis and no obstruction] Onset: 346485-04-5253CdulksitHjdltoeaxxljj of surgical procedures or medical care (20 sources)Post-gastrointestinal tract surgery malnutrition; Translations: [Postsurgical malabsorption, not elsewhere classified]Onset: 12-30-2024 08-82-5998KyggyynOjeuabvqruewz and procreative management (5 sources)Encounter for sterilization; Translations: [Encounter for removal of intrauterine contraceptive device]Onset: 33-88-8769PgmupjxePibitojarv disorders (20 sources)Gastroesophageal reflux disease; Translations: [Gastro-esophageal reflux disease without esophagitis]Onset: 520514-92-2851AubfczoPsuzvncht hypertension (20 sources)Essential hypertension; Translations: [Essential (primary) hypertension]Onset: 945815-17-2148AnvwnavOkngv of unknown origin (2 sources)Fever; Translations: [Fever, unspecified]89-19-6519Vqmdxzdw Genitourinary symptoms and ill-defined conditions (3 sources)Personal history of urinary (tract) infections; Translations: [Dysuria]Onset: 139445-32-4516SjbuspnaAwalpyxlkyrp complicating ; childbirth and the puerperium (7 sources)Pre-eclampsia added to pre-existing hypertension; Translations: [Pre- existing hypertension with pre-eclampsia, unspecified trimester]Onset: 754073-89-4478PxtttjuCttkmbamhlusg and screening for infectious disease (5 sources)Encounter for screening for human papillomavirus (HPV); Translations: [Exposure to sexually transmissible disorder]Onset: 810283-75-8385Aghthxmx Influenza (2 sources)Influenza due to Influenza A virus; Translations: [Influenza due to other identified influenza virus with other respiratory manifestations] 18-65-5892IuzjyknvSgbhydirx disorders (20 sources)Excessive and frequent menstruation with regular cycle; Translations: [Irregular periods]Onset: 91-52-7023HhotkeoMvil disorders (20 sources)Depressive disorder; Translations: [Depression]Onset: 06-13-2019 ChronicNutritional deficiencies (3 sources)Vitamin D deficiency; Translations: [Vitamin D deficiency, unspecified]99-53-5142ZxbprmdVllml aftercare (1 source)Other intermediate accountant (current) drug therapy; Translations: [OTH MOTORBOAT MECHANIC CURRENT DRUG THERAPY]Onset: 57-30-0651FtfxxfoiClxau complications of ; puerperium affecting management of mother (1 source)Obesity complicating childbirth; Translations: [OBESITY COMPLICATING CHILDBIRTH]Onset: 67-37-5638OwvavrjCppnz complications of (3 sources)Maternal obesity complicating , childbirth and the puerperium, antepartum; Translations: [Obesity complicating , unspecified trimester]52-51-7810OtqznwaGioff complications of (1 source)Obesity complicating , unspecified trimester; Translations: [Obesity complicating , unspecified trimester]Onset: 20-23-0351Tmrnyhf Other complications of (3 sources)History of pre-eclampsia; Translations: [Supervision of with other poor reproductive or obstetric history, second trimester]05-29-2025 EpisodicOther complications of (4 sources)Supervision of with other poor reproductive or obstetric history, second trimester; Translations: [ with other poor obstetric history]Onset: 890313-62-3680HheidsviGlctv complications of (3 sources)History of gestational diabetes mellitus; Translations: [Supervision of with other poor reproductive or obstetric history, unspecified trimester]45-44-7134PmlrkmjdNfskq complications of (3 sources)Depressive disorder in mother complicating ; Translations: [Other mental disorders complicating , unspecified trimester]05-29-2025 EpisodicOther complications of (3 sources)Other mental disorders complicating , unspecified trimester; Translations: [Mental disorders of mother, antepartum condition or complication] Onset: 675351-98-7553RrolmpxaHdthb complications of (1 source)Bariatric surgery status complicating , second trimester; Translations: [Bariatric surgerystatus complicating , second trimester] Onset: 26-01-0490IixsiurzZlyxk complications of (1 source)Supervision of with other poor reproductive or obstetric history, unspecified trimester; Translations: [Supervision of with other poor reproductive or obstetric history, unspecified trimester]Onset: 39-75-7615QjxusbqyRxrab complications of (1 source)Other specified related conditions, unspecified trimester; Translations: [Other specifiedpregnancy related conditions, unspecified trimester]Onset: 78-00-5871YqiqckdkQarva endocrine disorders (20 sources)Polycystic ovary syndrome; Translations: [Polycystic ovarian syndrome]Onset: 325527-46-5019ZsjqcoxNrhlj female genital disorders (2 sources)Vaginal discharge; Translations: [Other specified noninflammatory disorders of vagina]13-30-5271EuhsgzwkCkikh gastrointestinal disorders (5 sources)History of bariatric surgical procedure; Translations: [Bariatric surgery status]97-31-9304YngdmzwfHdjpc gastrointestinal disorders (20 sources)History of bypass of stomach; Translations: [Bariatric surgery status]Onset: 311093-57-1411ZgcubrzhVuuea hematologic conditions (2 sources)History of anemia; Translations: [Personal history of diseases of the blood and blood-forming organs and certain disorders involving the immune mechanism]94-32-3017DvcddyxvMoqkt lower respiratory disease (2 sources)Dyspnea; Translations: [Shortness of breath]Onset: 28-91-9171Dzjriebv Other nutritional; endocrine; and metabolic disorders (20 sources)Severe obesity; Translations: [Morbid (severe) obesity due to excess calories]Onset: 29-80-1780FhftvacUnyzp nutritional; endocrine; and metabolic disorders (2 sources)Morbid (severe) obesity due to excess calories; Translations: [MORBID SEVERE OBES D/T EXCESS KALEY]Onset: 47-19-1529QlfmbkaBdccj nutritional; endocrine; and metabolic disorders (20 sources)Body mass index 40+ - severely obese; Translations: [Morbid (severe) obesity due to excess calories]Onset: 447337-26-7741CdqgfipFwwex nutritional; endocrine; and metabolic disorders (8 sources)Morbid obesity; Translations: [Morbid (severe) obesity due to excess calories]34-56-2609YcnuxglYcwim and delivery including normal (11 sources)Single live ; Translations: []Onset: 11-28-2021 52-43-4726AmcqywqqSdgat screening for suspected conditions (not mental disorders or infectious disease) (13 sources)Encounter for screening for malignant neoplasm of cervix; Translations: [Patient encounter status]Onset: 48-98-0776AxahjuesPbfuy upper respiratory disease (20 sources)Allergic rhinitis due to pollen; Translations: [Allergic rhinitis due to pollen]Onset: 421215-27-8360OhjgaeiRnyoff media and related conditions (2 sources)Acute non-suppurative otitis media - serous; Translations: [Acute serous otitis media, left ear]90-51-1376FpeczwpxCkunypf cyst (4 sources)Unspecified ovarian cyst, right side; Translations: [UNSPECIFIED OVARIAN CYST RIGHT SIDE]Onset: 75-18-3002CkzrvjpeQltsruya codes; unclassified (2 sources)Obstructive sleep apnea (adult) (pediatric); Translations: [Obstructive sleep apnea (adult) (pediatric)]Onset: 18-54-5010TjyvxcxAjzhxrmu codes; unclassified (3 sources)Sleep apnea; Translations: [Sleep apnea, unspecified]Onset: 894937-79-4925MasyijgWvjcmmnz codes; unclassified (20 sources)Obstructive sleep apnea syndrome; Translations: [Obstructive sleep apnea (adult) (pediatric)]Onset: 827717-95-7780XroeverKntxbroh codes; unclassified (2 sources)Personal history of other specified conditions; Translations: [PERSONAL HISTORY OTH SPEC CONDITION]Onset: 90-99-3040AcfviuryAtmxksmi codes; unclassified (2 sources)Gestation period, 14 weeks; Translations: [14 weeks gestation of ]06-37-7976QsuqyvytPximjaes codes; unclassified (2 sources)Gestation period, 17 weeks; Translations: [17 weeks gestation of ]67-84-8059MsqrpdgvOmkmhkip codes; unclassified (4 sources)Gestation period, 20 weeks; Translations: [20 weeks gestation of ]30-31-5167XmkviokuEzzbnzne codes; unclassified (4 sources)H/O: endocrine disorder; Translations: [Personal history of other specified conditions]44-82-4763PkqujvjxIueaijcb codes; unclassified (2 sources)Gestation period, 21 weeks; Translations: [21 weeks gestation of ]84-95-5048QumrznueUieckrbn codes; unclassified (1 source)Personal history of other complications of , childbirth and the puerperium; Translations: [Personal history of other complications of , childbirth and the puerperium]Onset: 55-47-3835YcshjbnjMabppwpd codes; unclassified (1 source)20 weeks gestation of ; Translations: [20 weeks gestation of ]Onset: 78-30-5840QhyztwncJeyzohxd codes; unclassified (2 sources)Gestation period, 23 weeks; Translations: [23 weeks gestation of ]04-01-7664DsnprqowNgaugfy disorders (20 sources)Thyroid nodule; Translations: [Nontoxic single thyroid nodule]Onset: 00-36-5309OpqdkddVittrqyhzgkx (1 source)PERSONAL HISTORY OF COVID-19; Translations: [PERSONAL HISTORY OF COVID-19]Onset: 98-62-7645Pxlebvtdmqzs (1 source)CONTACT W/AND (SUSP) EXPOS COVID-19; Translations: [CONTACT W/AND (SUSP) EXPOS COVID-19]Onset: 96-16-1431Ggcdrwtzoexh (20 sources)Patient on antidepressant monitoring planOnset: 395038-27-4908 Unclassified (20 sources)Baseline PHQ-9Onset: 698294-03-5228Nhznhithewci (1 source)Hx PEOnset: 80-53-1815Khicqxgeecyq (1 source)InjectionOnset: 14-63-5550Xrrdzwxprozu (1 source)Abdominal pain of multiple sites; Translations: [Abdominal pain of multiple sites]Onset: 57-89-9560Vhapqxzzxccm (1 source)Low back pain, unspecified; Translations: [Low back pain, unspecified] Onset: 12-15-2024 Past or Other Problems Problem ClassificationProblemDateDocumented DateEpisodic/Chronic Administrative/social admission (9 sources)Patient encounter status; Translations: [Dietary counseling and surveillance]35-51-7852AmoidsmxQwhgcvbybu and other anemia (20 sources)Anemia; Translations: [Anemia, unspecified]Onset: 93-35-3044Ppxudldl Deficiency and other anemia (20 sources)Iron deficiency anemia; Translations: [Iron deficiency anemia, unspecified]Onset: 969086-10-6952OxcerubfYhhtjzog or abnormal glucose tolerance complicating ; childbirth; or the puerperium (20 sources)Gestational diabetes mellitus; Translations: [Gestational diabetes mellitus in , unspecified control]Onset: 12-09-2018 Resolved: 84-36-5690MlhvkokkBdovlfhf; including migraine (20 sources)Frequent headache; Translations: [Frequent headaches]Onset: 941279-24-0520LwwaubfwWcwzhswfgmnz complicating ; childbirth and the puerperium (20 sources) pre-eclampsia; Translations: [Unspecified pre-eclampsia, complicating the puerperium]Onset: 11-23-2018 Resolved: 48-38-7577MdsucfgzSkca disorders (20 sources)Mood disorders; Translations: [Depression, unspecified]Onset: 12-24-2018 Resolved: Nausea and vomiting (20 sources)Nausea and vomiting; Translations: [Nausea with vomiting, unspecified]Onset: 346666-24-8732DriwbaxxVfykmgegxmq deficiencies (5 sources)Cobalamin deficiency; Translations: [Deficiency of other specified B group vitamins]Onset: 259544-33-8796GwddkumxKjsog endocrine disorders (20 sources)Disorder of endocrine system; Translations: [Endocrine disorder, unspecified]Onset: 159711-91-2202AwkutvekMquvo gastrointestinal disorders (2 sources)Constipation; Translations: [Constipation, unspecified]2024 EpisodicOther gastrointestinal disorders (2 sources)Bariatric surgery status; Translations: [Bariatric surgery status] Onset: 34-67-5377JdouoxsgEpeun hematologic conditions (2 sources)Personal history of diseases of the blood and blood-forming organs and certain disorders involving the immune mechanism; Translations: [Personal history of diseases of the blood and blood-forming organs and certain disorders involving the immune mechanism]Onset: 86-19-8542MnilwsekLtnbr nervous system disorders (1 source)Acute postoperative pain; Translations: [Other acute postprocedural pain]54-55-8063DuuhzhdlSxczkgzcy (except that caused by tuberculosis or sexually transmitted disease) (20 sources)Pneumonia; Translations: [Pneumonia, unspecified organism]Onset: 07-30-2022 Resolved: 883869-94-0802MesusoskJqoursgxq heart disease (20 sources)Acute pulmonary embolism; Translations: [Other pulmonary embolism without acute cor pulmonale]Onset: 36-19-1178IboqmvlfFtanjuar codes; unclassified (20 sources)FH: Diabetes in ; Translations: [Family history of diabetes mellitus]Onset: 22-60-4833DftbmtakNrqirzau codes; unclassified (1 source)39 weeks gestation of ; Translations: [39 WEEKS GESTATION OF ]Onset: 70-41-7019AjtoxhcsZxfqples codes; unclassified (1 source)38 weeks gestation of ; Translations: [38 WEEKS GESTATION OF ]Onset: 46-84-3476KvbysvxyIrirwqzz codes; unclassified (20 sources)Amnesia; Translations: [Other amnesia]Onset: EpisodicResidual codes; unclassified (20 sources)FH: Thrombosis; Translations: [Family history of ischemic heart disease and other diseases of the circulatory system]Onset: EpisodicResidual codes; unclassified (1 source)Procedure not done; Translations: [Procedure and treatment not carried out, unspecified reason]36-34-3369AranguthOjvwrmtkohw; intervertebral disc disorders; other back problems (2 sources)BackacheOnset: 99-54-8822SiwjyeviZtvustuwoamg (1 source)History of gestational diabetes in prior , currently in second epipdcttv83-77-8605Inbbsythcdue (1 source)Anxiety disorder affecting , -93-3881Hhdrnel tract infections (20 sources)Urinary tract infectious disease; Translations: [Urinary tract infection, site not specified]Onset: 447810-58-9112Cutqovzr Results Test NameValueInterpretationReference RangeFacilityMLR HEMOGLOBIN A1Con 33-53-5967Lvsudzq [Mass/Vol]91 mg/dLNOCenterpoint Medical CenterIbjefgbjxpVzX6l (Bld) [Mass fraction] 4.8 %4.5 - 6.2 %NOMS HealthcareComment on above:ADA RECOMMENDED LIMIT 4.0 - 6.0 ADA THERAPEUTIC TARGET < 7.0 ACTION SUGGESTED > 7.0 CLINISYNCNOCenterpoint Medical CenterCBC WITH AUTO DIFFERENTIALon 24-83-1380AYZVUOAEX ABSOLUTE COUNT (10*3/UL) BY AUTOMATED COUNT0.0 10*3/uLNormal0.0-0.2[facility] HospitalComment on above:Performed By: #### CBCA, FEPR, LIVR, 6-4, 2132-05, 2284-04, 14933-7 #### [facility] ([id number]) [address] [place] [address], [address] [place] [address] #### 78817-7 #### [facility] ([id number]) [address] [place] [address] 19771LCQYYIWQS RELATIVE PERCENT BY AUTOMATED COUNT0.4 %Normal [facility] HospitalComment on above:Performed By: #### CBCA, FEPR, LIVR, 2275-4, 2132-05, 2284-04, 68821-1 #### [facility] ([id number]) [address] [place] [address], [address] [place] [address] #### 42791-8 #### [facility] ([id number]) [address] [place] [address] 49556OUHQVOLHTGN DIFFERENTIAL TYPEAUTOMATED DIFFERENTIALNormal [facility] HospitalComment on above:Performed By: #### CBCA, FEPR, LIVR, 6-4, 2132-05, 2284-04, 23664-0 #### [facility] ([id number]) [address] [place] [address], [address] [place] [address] #### 84789-4 #### [facility] ([id number]) [address] [place] [address] 47073Xtaagbekapv (Bld) [#/Vol]0.1 10*3/uLNormal0.0-0.4[facility] HospitalComment on above:Performed By: #### CBCA, FEPR, LIVR, 2275-4, 9, 8, 33907-8 #### [facility] ([id number]) [address] [place] [address], [address] [place] [address] #### 63368-3 #### [facility] ([id number]) [address] [place] [address] 43893XUJRCRZHBGS RELATIVE PERCENT BY AUTOMATED COUNT1.1 %Normal [facility] HospitalComment on above:Performed By: #### CBCA, FEPR, LIVR, 2275-12, 2132-05, 2284-04, 58993-3 #### [facility] ([id number]) [address] [place] [address], [address] [place] [address] #### 91396-9 #### [facility] ([id number]) [address] [place] [address] 97290Eejkdznttfi distribution width (RBC) [Ratio]13.0 %Blmvgg43.5-15 [facility] HospitalComment on above:Performed By: #### CBCA, FEPR, LIVR, 2275-12, 2132-05, 2284-04, 88195-3 #### [facility] ([id number]) [address] [place] [address], [address] [place] [address] #### 92240-0 #### [facility] ([id number]) [address] [place] [address] 33170Mswptcknvw (Bld) [Volume fraction]29.9 %Ewd05-63JmeAwxvdlMethodist Mckinney HospitalComment on above:Performed By: #### CBCA, FEPR, LIVR, 2275, 2132-05, 2284-04, 64890-5 #### [facility] ([id number]) [address], [address] [place] [address] #### 42675-0 #### [facility] ([id number]) [address] [place] [address] 67595Cxxkmrcmhb (Bld) [Mass/Vol]10.6 g/dLLow11.7-15.5POhioHealth Southeastern Medical CenterComment on above:Performed By: #### CBCA, FEPR, LIVR, 2275-, 2132-05, 2284-04, 38594-7 #### [facility] ([id number]) [address], [address] [place] [address] #### 45441-5 #### [facility] ([id number]) [address] [place] [address] [id number] ABSOLUTE COUNT (10*3/UL) BY AUTOMATED COUNT2.4 10*3/uLNormal1.0-3.5POhioHealth Southeastern Medical CenterComment on above:Performed By: #### CBCA, FEPR, LIVR, 2275-, 2132-05, 2284-04, 67555-7 #### [facility] ([id number]) [address], [address] [place] [address] #### 27879-6 #### [facility] ([id number]) [address] [place] [address] 82524VKUSXAWFZFD RELATIVE PERCENT BY AUTOMATED COUNT24.9 %Normal [facility] HospitalComment on above:Performed By: #### CBCA, FEPR, LIVR, 2275-, 2132-05, 2284-04, 63695-6 #### [facility] ([id number]) [address], [address] [place] [address] #### 43094-1 #### [facility] ([id number]) [address] [place] [address] 19990CPT (RBC) [Entitic mass]31.3 elUlbobb79-11BarCkjqzqMethodist Mckinney HospitalComment on above:Performed By: #### CBCA, FEPR, LIVR, 6-4, 2131-9, 4-8, 20101-8 #### [facility] ([id number]) [address], [address] [address] [place] [address] #### 20587-4 #### [facility] ([id number]) [address] [place] [address] 68004RHYR (RBC) [Mass/Vol]35.3 g/yGYcbgmy34-04QevQrpelnMethodist Mckinney HospitalComment on above:Performed By: #### CBCA, FEPR, LIVR, 2275-4, 9, 2284-04, 44427-2 #### [facility] ([id number]) [address], [address] [place] [address] #### 87658-4 #### [facility] ([id number]) [address] [place] [address] 90034FNR (RBC) [Entitic vol]88 dAFyeiim75-708VssPjcblg [facility] HospitalComment on above:Performed By: #### CBCA, FEPR, LIVR, 6-4, 9, 2283-8, 21645-1 #### [facility] ([id number]) [address], [address] [place] [address] #### 77318-9 #### [facility] ([id number]) [address] [place] [address] 19458DFYHKMRZV ABSOLUTE COUNT (10*3/UL) BY AUTOMATED COUNT0.4 10*3/uLNormal0.0-0.9ProMethodist Mckinney HospitalComment on above:Performed By: #### CBCA, FEPR, LIVR, 6-4, 2131-9, 4-8, 18767-9 #### [facility] ([id number]) [address], [address] [place] [address] #### 75986-2 #### [facility] ([id number]) [address] [place] [address] 34768YBXLUOSVP RELATIVE PERCENT BY AUTOMATED COUNT4.0 %Normal [facility] HospitalComment on above:Performed By: #### CBCA, FEPR, LIVR, 6-4, 2131-9, 2283-8, 78320-9 #### [facility] ([id number]) [address] [facility], [address] [place] [address] #### 04082-9 #### [facility] ([id number]) [address] [place] [address] 40782QZXKOXOHVKT ABSOLUTE COUNT BY AUTOMATED COUNT6.8 10*3/uLHigh 1.5-6.6Pro[facility] HospitalComment on above:Performed By: #### CBCA, FEPR, LIVR, 6-4, 2131-9, 2283-8, 84049-5 #### [facility] ([id number]) [address], [address] [place] [address] #### 04987-7 #### [facility] ([id number]) [address] [place] [address] 73563ZGRCVHRCDRU RELATIVE PERCENT BY AUTOMATED COUNT69.6 %Normal [facility] HospitalComment on above:Performed By: #### CBCA, FEPR, LIVR, 6-4, 2131-9, 4-8, 76440-6 #### [facility] ([id number]) [address], [address] [place] [address] #### 21620-9 #### [facility] ([id number]) [address] [place] [address] 00585Tksuroht mean volume (Bld) [Entitic vol]7.8 fLNormal7-12 [facility] HospitalComment on above:Performed By: #### CBCA, FEPR, LIVR, 6-4, 2131-9, 4-8, 96953-3 #### [facility] ([id number]) [address], [address] [place] [address] #### 62224-5 #### [facility] ([id number]) [address] [place] [address] 74540Helxfskmj (Bld) [#/Vol]244 10*3/oJTcojwm487-921UjlCuogyc [facility] HospitalComment on above:Performed By: #### CBCA, FEPR, LIVR, 2275-4, 2132-05, 2284-04, 19294-7 #### [facility] ([id number]) [address], [address] [place] [address] #### 61441-8 #### [facility] ([id number]) [address] [place] [address] 86021IDH COUNT3.38 X10E12/LLow3.8-5.2POhioHealth [facility] Medical [facility] Comment on above:Performed By: #### CBCA, FEPR, LIVR, 6-4, 9, 8, 72999-3 #### [facility] ([id number]) [address], [address] [place] [address] #### 06916-3 #### [facility] ([id number]) [address] [place] [address] 48230DEP (Bld) [#/Vol]9.7 10*3/uLNormal4-11ProMethodist Mckinney HospitalComment on above:Performed By: #### CBCA, FEPR, LIVR, 6-4, 2131-9, 2283-8, 39558-8 #### [facility] ([id number]) [address], [address] [place] [address] #### 61771-6 #### [facility] ([id number]) [address] [place] [address] 59991DKXVBDTGNTOOG METABOLIC PANELon 41-09-5359Jkbgbhc [Mass/Vol]3.1 g/dLLow3.2-5.3Pro[facility] HospitalComment on above:Performed By: #### CBCA, FEPR, LIVR, 6-4, 9, 2284-04, 31782-4 #### [facility] ([id number]) [address], [address] [place] [address] #### 50039-6 #### [facility] ([id number]) [address] [place] [address] 92847UDI [Catalytic activity/Vol]62 U/VUabmcs29-443FtkQsnfmb [facility] HospitalComment on above:Performed By: #### CBCA, FEPR, LIVR, 6-4, 9, 8, 98731-5 #### [facility] ([id number]) [address], [address] [place] [address] #### 92999-2 #### [facility] ([id number]) [address] [place] [address] 11657EWW [Catalytic activity/Vol]16 U/LNormal<=31POhioHealth Southeastern Medical CenterComment on above:Performed By: #### CBCA, FEPR, LIVR, 6-4, 9, 2284-04, 15542-6 #### [facility] ([id number]) [address], [address] [place] [address] #### 06120-4 #### [facility] ([id number]) [address] [place] [address] 12354Ddkqu gap [Moles/Vol]8 mmol/LNormal5-15[facility] HospitalComment on above:Performed By: #### CBCA, FEPR, LIVR, 6-4, 9, 8, 76552-6 #### [facility] ([id number]) [address] [facility], [address] [place] [address] #### 07975-9 #### [facility] ([id number]) [address] [place] [address] 16054TJP [Catalytic activity/Vol]11 U/LNormal<=41ProMethodist Mckinney HospitalComment on above:Performed By: #### CBCA, FEPR, LIVR, 2275-, 2132-05, 2284-04, 07646-6 #### [facility] ([id number]) [address] [facility], [address] [place] [address] #### 72387-5 #### [facility] ([id number]) [address] [place] [address] 25236Jeqwukkdg [Mass/Vol]0.5 mg/dLNormal0.3-1.2POhioHealth Southeastern Medical CenterComment on above:Performed By: #### CBCA, FEPR, LIVR, 2275-4, 2132-05, 2284-04, 68103-1 #### [facility] ([id number]) [address] [facility], [address] [place] [address] #### 58813-5 #### [facility] ([id number]) [address] [place] [address] 08293Svylwhi [Mass/Vol]8.7 mg/dLNormal8.5-10.5POhioHealth Southeastern Medical CenterComment on above:Performed By: #### CBCA, FEPR, LIVR, 6-4, 2132-05, 2284-04, 74812-2 #### [facility] ([id number]) [address], [address] [place] [address] #### 76579-2 #### [facility] ([id number]) [address] [place] [address] 31611Kdxldbqw [Moles/Vol]108 mmol/GYnjqjn45-197OuhFrctgdMethodist Mckinney HospitalComment on above:Performed By: #### CBCA, FEPR, LIVR, 2275-4, 2132-05, 2284-04, 72931-1 #### [facility] ([id number]) [address], [address] [place] [address] #### 22737-8 #### [facility] ([id number]) [address] [place] [address] 14597EM7 [Moles/Vol]20 mmol/RJee91-27BffZnjfjnOhioHealth Southeastern Medical Center Comment on above:Performed By: #### CBCA, FEPR, LIVR, 2275-, 2132-05, 2284-04, 74405-0 #### [facility] ([id number]) [address], [address] [place] [address] #### 19687-0 #### [facility] ([id number]) [address] [place] [address] 90078Tcirioonui [Mass/Vol]0.44 mg/dLNormal0.40-1.00ProMethodist Mckinney HospitalComment on above:Result Comment: METHOD TRACEABLE TO IDMS STANDARD Performed By: #### CBCA, FEPR, LIVR, 6-4, 2132-05, 2284-04, 15843-6 #### [facility] ([id number]) [address], [address] [place] [address] #### 97875-3 #### [facility] ([id number]) [address] [place] [address] 85547EONN (CKD-EPI) NON-RACE DEPENDENT>^90Normal>=60ProMethodist Mckinney HospitalComment on above:Result Comment: eGFR not reported due to non- numeric value for Creatinine. Reported eGFR is based on the CKD-EPI 2020 equation that does not use a race coefficient.Performed By: #### CBCA, FEPR, LIVR, 2276-4, 9, 8, 85886-9 #### [facility] ([id number]) [address] [facility], [address] [place] [address] #### 66478-5 #### [facility] ([id number]) [address] [place] [address] 61091Cawxtog [Mass/Vol]97 mg/hYAlpkyd17-06AcaRauvjwMethodist Mckinney Hospital Comment on above:Performed By: #### CBCA, FEPR, LIVR, 6-4, 9, 2284-04, 30191-9 #### [facility] ([id number]) [address] [facility], [address] [place] [address] #### 10440-0 #### [facility] ([id number]) [address] [place] [address] 82815Efsvrkfec [Moles/Vol]3.9 mmol/LNormal3.5-5.0ProMethodist Mckinney HospitalComment on above:Performed By: #### CBCA, FEPR, LIVR, 6-4, 9, 2283-8, 53704-3 #### [facility] ([id number]) [address] [facility], [address] [place] [address] #### 75340-3 #### [facility] ([id number]) [address] [place] [address] 33856Uayxtot [Mass/Vol]6.3 g/dLNormal6.0-8.0ProMethodist Mckinney HospitalComment on above:Performed By: #### CBCA, FEPR, LIVR, 6-4, 2131-9, 4-8, 21169-7 #### [facility] ([id number]) [address], [address] [place] [address] #### 76588-5 #### [facility] ([id number]) [address] [place] [address] 68078Etfndd [Moles/Vol]136 mmol/NLifwrw092-080UvtOfcoko [facility] HospitalComment on above:Performed By: #### CBCA, FEPR, LIVR, 6-4, 9, 4-8, 20365-0 #### [facility] ([id number]) [address], [address] [place] [address] #### 06945-2 #### [facility] ([id number]) [address] [place] [address] 89395Gpya nitrogen [Mass/Vol]9 mg/dLNormal5-23ProMethodist Mckinney HospitalComment on above:Performed By: #### CBCA, FEPR, LIVR, 6-4, 9, 4-8, 49636-4 #### [facility] ([id number]) [address], [address] [place] [address] #### 22322-2 #### [facility] ([id number]) [address] [place] [address] 08593LN CTA CHESTon 12-09-3534EV CTA CHESTCT CTA CHEST Clinical History: History [...] by Jovanni Gallegos MD on 06/23/2025 8:49 AMNormalHenry County HospitalLIPASEon 91-72-6043Tdwgwp [Catalytic activity/Vol]25 U/YFendrb22-37 [facility] HospitalComment on above:Performed By: #### CBCA, FEPR, LIVR, 2276-4, 2-9, 4-8, 93165-3 #### [facility] ([id number]) [address] [place] [address], [address] [place] [address] #### 93609-8 #### [facility] ([id number]) [address] [place] [address] 15302OXGSITGNFOch 34-74-8392Nzhqgaabz Ql (U)NegativeNormalNegative [facility] HospitalComment on above:Performed By: #### CBCA, FEPR, LIVR, 2276-4, 2132-9, 2284-8, 70375-7 #### [facility] ([id number]) [address] [place] [address], [address] [place] [address] #### 16292-1 #### [facility] ([id number]) [address] [place] [address] 23731JBJOF/HGBNegativeNormalNegativeHenry County Hospital Comment on above:Performed By: #### CBCA, FEPR, LIVR, 6-4, 2131-9, 2283-8, 49974-0 #### [facility] ([id number]) [address] [facility], [address] [place] [address] #### 61998-0 #### [facility] ([id number]) [address] [place] [address] 69334Qglhy (U)YellowNormalYellowHenry County HospitalComment on above:Performed By: #### CBCA, FEPR, LIVR, 6-4, 2131-9, 2283-8, 22946-3 #### [facility] ([id number]) [address] [facility], [address] [place] [address] #### 76628-0 #### [facility] ([id number]) [address] [place] [address] 12656Hfgfgli Ql (U)NegativeNormalNegative, 250 mg/dLHenry County HospitalComment on above:Performed By: #### CBCA, FEPR, LIVR, 6-4, 9, 2283-8, 70832-6 #### [facility] ([id number]) [address] [facility], [address] [place] [address] #### 67204-2 #### [facility] ([id number]) [address] [place] [address] 23410Lhlcrui Ql (U)NegativeNormalNegativeHenry County Hospital Comment on above:Performed By: #### CBCA, FEPR, LIVR, 6-4, 9, 2283-8, 82755-9 #### [facility] ([id number]) [address] [facility], [address] [place] [address] #### 78004-7 #### [facility] ([id number]) [address] [place] [address] 42652Jhsvtcsmp esterase Test strip Ql (U)NegativeNormalNegative [facility] HospitalComment on above:Performed By: #### CBCA, FEPR, LIVR, 2276-4, 2-9, 2284-8, 85550-4 #### [facility] ([id number]) [address] [facility], [address] [place] [address] #### 39136-9 #### [facility] ([id number]) [address] [place] [address] 80035Zfoiiuc Ql (U)NegativeNormalNegativeHenry County Hospital Comment on above:Performed By: #### CBCA, FEPR, LIVR, 6-4, 2131-9, 4-8, 40685-5 #### [facility] ([id number]) [address] [place] [address], [address] [place] [address] #### 27537-1 #### [facility] ([id number]) [address] [place] [address] 45951SJ,URINE6.5Afmkpi5.0-8.5Pro[facility] HospitalComment on above:Performed By: #### CBCA, FEPR, LIVR, 6-4, 2-9, 4-8, 39730-8 #### [facility] ([id number]) [address] [facility], [address] [place] [address] #### 94409-7 #### [facility] ([id number]) [address] [place] [address] 14224Jxmniss Ql (U)NegativeNormalNegativeHenry County Hospital Comment on above:Performed By: #### CBCA, FEPR, LIVR, 2276-4, 2-9, 2284-8, 70563-6 #### [facility] ([id number]) [address], [address] [place] [address] #### 14989-6 #### [facility] ([id number]) [address] [place] [address] 61199Meodratr gravity (U) [Rel density]1.316Idlaer5.003-1.035 [facility] HospitalComment on above:Performed By: #### CBCA, FEPR, LIVR, 6-4, 2131-9, 4-8, 15350-8 #### [facility] ([id number]) [address], [address] [place] [address] #### 26053-8 #### [facility] ([id number]) [address] [place] [address] 16775EXFPFEUUMHmdmiBwahcfVummuHrtHtglsj [facility] HospitalComment on above:Performed By: #### CBCA, FEPR, LIVR, 6-4, 9, 4-8, 86307-6 #### [facility] ([id number]) [address], [address] [place] [address] #### 60283-4 #### [facility] ([id number]) [address] [place] [address] 85827BXRGULEQAJRN8.0 eu/dLNormal0.2 eu/dL, 1.0 eu/dLHenry County HospitalComment on above:Performed By: #### CBCA, FEPR, LIVR, 6-4, 2131-9, 4-8, 08212-7 #### [facility] ([id number]) [address], [address] [place] [address] #### 53928-9 #### [facility] ([id number]) [address] [place] [address] 83254GYC WITH AUTO DIFFERENTIALon 41-43-5543OPZHTDRXC ABSOLUTE COUNT (10*3/UL) BY AUTOMATED COUNT0.1 10*3/uLNormal0.0-0.2POhioHealth [facility] Comment on above:Performed By: #### CBCA, FEPR, LIVR, 6-4, 9, 8, 86966-9 #### [facility] ([id number]) [address] [facility], [address] [place] [address] #### 16546-6 #### [facility] ([id number]) [address] [place] [address] 39778MRJPEWXAV RELATIVE PERCENT BY AUTOMATED COUNT1.3 %Normal [facility] HospitalComment on above:Performed By: #### CBCA, FEPR, LIVR, 2275-4, 2132-05, 2284-04, 74078-6 #### [facility] ([id number]) [address] [facility], [address] [place] [address] #### 66041-1 #### [facility] ([id number]) [address] [place] [address] 87540KCIZCEUYCPD DIFFERENTIAL TYPEAUTOMATED DIFFERENTIALNormal [facility] HospitalComment on above:Performed By: #### CBCA, FEPR, LIVR, 2275-4, 2132-05, 2284-04, 57001-8 #### [facility] ([id number]) [address] [facility], [address] [place] [address] #### 84409-2 #### [facility] ([id number]) [address] [place] [address] 36163Ugzhxsyvhqq (Bld) [#/Vol]0.1 10*3/uLNormal0.0-0.4[facility] HospitalComment on above:Performed By: #### CBCA, FEPR, LIVR, 6-4, 9, 2284-04, 48317-1 #### [facility] ([id number]) [address] [facility], [address] [place] [address] #### 89968-7 #### [facility] ([id number]) [address] [place] [address] 36265ASUCKJURHDM RELATIVE PERCENT BY AUTOMATED COUNT1.3 %Normal [facility] HospitalComment on above:Performed By: #### CBCA, FEPR, LIVR, 2276-4, 2131-9, 4-8, 81863-2 #### [facility] ([id number]) [address] [facility], [address] [place] [address] #### 86440-7 #### [facility] ([id number]) [address] [place] [address] 33685Zuzxnfsrxic distribution width (RBC) [Ratio]13.4 %Opydpd31.5-15 [facility] HospitalComment on above:Performed By: #### CBCA, FEPR, LIVR, 6-4, 2131-9, 4-8, 40522-6 #### [facility] ([id number]) [address] [facility], [facility] [address] [place] [address] #### 92893-0 #### [facility] ([id number]) [address] [place] [address] 29237Ewulmpdsad (Bld) [Volume fraction]32.5 %Qlw74-88CkpOtbdgk [facility] HospitalComment on above:Performed By: #### CBCA, FEPR, LIVR, 6-4, 2131-9, 4-8, 14044-1 #### [facility] ([id number]) [address] [facility], [address] [place] [address] #### 73161-9 #### [facility] ([id number]) [address] [place] [address] 69715Bufqlpklzj (Bld) [Mass/Vol]11.4 g/dLLow11.7-15.5POhioHealth Southeastern Medical CenterComment on above:Performed By: #### CBCA, FEPR, LIVR, 6-4, 2131-9, 2283-8, 58748-0 #### [facility] ([id number]) [address], [address] [place] [address] #### 12312-6 #### [facility] ([id number]) [address] [place] [address] 74092BXFABLRSGCN ABSOLUTE COUNT (10*3/UL) BY AUTOMATED COUNT3.1 10*3/uLNormal1.0-3.5POhioHealth Southeastern Medical CenterComment on above:Performed By: #### CBCA, FEPR, LIVR, 6-4, 9, 2283-8, 25954-1 #### [facility] ([id number]) [address] [facility], [address] [place] [address] #### 58238-8 #### [facility] ([id number]) [address] [place] [address] 48305SHEDQUVBZEZ RELATIVE PERCENT BY AUTOMATED COUNT27.4 %Normal [facility]ic[facility] Hospital of SacramentoComment on above:Performed By: #### CBCA, FEPR, LIVR, 6-4, 9, 8, 42364-5 #### [facility] ([id number]) [address] [facility], [address] [place] [address] #### 32786-9 #### [facility] ([id number]) [address] [place] [address] 15074LRQ (RBC) [Entitic mass]30.8 xjYoozxq22-86EsyBlrnal [facility] HospitalComment on above:Performed By: #### CBCA, FEPR, LIVR, 6-4, 9, 4-8, 36623-1 #### [facility] ([id number]) [address], [address] [place] [address] #### 05916-5 #### [facility] ([id number]) [address] [place] [address] 45970HBID (RBC) [Mass/Vol]35.0 g/qGRixesf26-21GftBfniyjMethodist Mckinney HospitalComment on above:Performed By: #### CBCA, FEPR, LIVR, 6-4, 2131-9, 2283-8, 36430-7 #### [facility] ([id number]) [address], [address] [place] [address] #### 91734-8 #### [facility] ([id number]) [address] [place] [address] 68567JJQ (RBC) [Entitic vol]88 zPUpaath45-510KlxAmdkem Fremont HospitalComment on above:Performed By: #### CBCA, FEPR, LIVR, 6-4, 2131-9, 4-8, 78307-8 #### [facility] ([id number]) [address], [address] [place] [address] #### 40928-4 #### [facility] ([id number]) [address] [place] [address] 44826YQARBKPIU ABSOLUTE COUNT (10*3/UL) BY AUTOMATED COUNT0.5 10*3/uLNormal0.0-0.9ProMethodist Mckinney HospitalComment on above:Performed By: #### CBCA, FEPR, LIVR, 6-4, 2131-9, 4-8, 29483-4 #### [facility] ([id number]) [address], [address] [place] [address] #### 20878-8 #### [facility] ([id number]) [address] [place] [address] 28852CIUDPNHQZ RELATIVE PERCENT BY AUTOMATED COUNT4.5 %Normal [facility] HospitalComment on above:Performed By: #### CBCA, FEPR, LIVR, 6-4, 9, 2283-8, 92741-9 #### [facility] ([id number]) [address], [address] [place] [address] #### 91823-6 #### [facility] ([id number]) [address] [place] [address] 49069HFSMVLGRXIM ABSOLUTE COUNT BY AUTOMATED COUNT7.4 10*3/uLHigh 1.5-6.6[facility] Hospitalca [facility] HospitalComment on above:Performed By: #### CBCA, FEPR, LIVR, 6-4, 9, 8, 66478-9 #### [facility] ([id number]) [address] [facility], [address] [place] [address] #### 34462-4 #### [facility] ([id number]) [address] [place] [address] 83898WANAKMGXGSA RELATIVE PERCENT BY AUTOMATED COUNT65.5 %Normal [facility] HospitalComment on above:Performed By: #### CBCA, FEPR, LIVR, 6-4, 9, 8, 46620-4 #### [facility] ([id number]) [address], [address] [place] [address] #### 02819-8 #### [facility] ([id number]) [address] [place] [address] 00939Mehjvlfj mean volume (Bld) [Entitic vol]7.6 fLNormal7-12 [facility] HospitalComment on above:Performed By: #### CBCA, FEPR, LIVR, 6-4, 9, 4-8, 39710-0 #### [facility] ([id number]) [address], [address] [place] [address] #### 70074-5 #### [facility] ([id number]) [address] [place], [place] [address]Pknowmfyb (Bld) [#/Vol]262 10*3/oWGeimvk274-383BzqYcwtalHenry County HospitalComment on above:Performed By: #### CBCA, FEPR, LIVR, 2276-4, 2-9, 2284-8, 27068-7 #### [facility] ([id number]) [address] [facility], [address] [place] [address] #### 38821-4 #### [facility] ([id number]) [address] [place] [address] 87209CQK COUNT3.68 X10E12/LLow3.8-5.2POhioHealth Southeastern Medical [facility] Comment on above:Performed By: #### CBCA, FEPR, LIVR, 2276-4, 2-9, 2284-8, 70089-0 #### [facility] ([id number]) [address] [facility], [address] [place] [address] #### 33155-1 #### [facility] ([id number]) [address] [place] [address] 23191YAM (Bld) [#/Vol]11.3 10*3/uLHigh4-11[facility] Comment on above:Performed By: #### CBCA, FEPR, LIVR, 2276-4, 2-9, 2284-8, 24327-1 #### [facility] ([id number]) [address], [address] [place] [address] #### 17288-1 #### [facility] ([id number]) [address] [place] [address] 39645VVLSOVXNUUVMK METABOLIC PANELon 73-88-6114Foclsod [Mass/Vol]3.0 g/dLLow3.2-5.3POhioHealth Southeastern Medical CenterComment on above:Performed By: #### CBCA, FEPR, LIVR, 6-4, 9, 8, 89941-8 #### [facility] ([id number]) [address] [facility], [address] [place] [address] #### 23685-2 #### [facility] ([id number]) [address] [place] [address] 03340ILW [Catalytic activity/Vol]60 U/ZKanqay33-933KweKprxrdMethodist Mckinney HospitalComment on above:Performed By: #### CBCA, FEPR, LIVR, 2275-4, 2132-05, 2284-04, 53416-0 #### [facility] ([id number]) [address] [place] [address], [address] [place] [address] #### 87673-6 #### [facility] ([id number]) [address] [place] [address] 70716VGB [Catalytic activity/Vol]17 U/LNormal<=31POhioHealth Southeastern Medical CenterComment on above:Performed By: #### CBCA, FEPR, LIVR, 6-4, 9, 2284-04, 41409-0 #### [facility] ([id number]) [address] [place] [address], [address] [place] [address] #### 89346-1 #### [facility] ([id number]) [address] [place] [address] 28368Xctjd gap [Moles/Vol]8 mmol/LNormal5-15ProMethodist Mckinney HospitalComment on above:Performed By: #### CBCA, FEPR, LIVR, 6-4, 9, 2284-04, 83246-7 #### [facility] ([id number]) [address], [address] [place] [address] #### 83350-1 #### [facility] ([id number]) [address] [place] [address] 60538ZLC [Catalytic activity/Vol]17 U/LNormal<=41ProMedica Little Company Of Mary HospitalComment on above:Performed By: #### CBCA, FEPR, LIVR, 6-4, 9, 8, 72016-9 #### [facility] ([id number]) [address] [facility] [facility], [address] [place] [address] #### 08351-1 #### [facility] ([id number]) [address] [place] [address] 55182Qofcavcxq [Mass/Vol]0.8 mg/dLNormal0.3-1.2ProMedMetropolitan State HospitalComment on above:Performed By: #### CBCA, FEPR, LIVR, 6-4, 9, 8, 17359-0 #### [facility] ([id number]) [address] [facility], [address] [place] [address] #### 06153-9 #### [facility] ([id number]) [address] [place] [address] 46454Bushyuo [Mass/Vol]8.5 mg/dLNormal8.5-10.5POhioHealth Southeastern Medical CenterComment on above:Performed By: #### CBCA, FEPR, LIVR, 6-4, 9, 8, 86588-3 #### [facility] ([id number]) [address] [facility], [address] [place] [address] #### 11101-7 #### [facility] ([id number]) [address] [place] [address] 05710Zlrdhdlc [Moles/Vol]105 mmol/KRlqrpj02-872GqtGxyhfgMethodist Mckinney HospitalComment on above:Performed By: #### CBCA, FEPR, LIVR, 6-4, 2132-05, 2284-04, 49095-1 #### [facility] ([id number]) [address], [address] [place] [address] #### 43778-7 #### [facility] ([id number]) [address] [place] [address] 78060GJ5 [Moles/Vol]20 mmol/IHmk52-45JjaNeeatbOhioHealth Southeastern Medical Center Comment on above:Performed By: #### CBCA, FEPR, LIVR, 2275-, 2132-05, 2284-04, 35606-8 #### [facility] ([id number]) [address] [facility], [address] [place] [address] #### 72964-4 #### [facility] ([id number]) [address] [place] [address] 62072Iafvargulj [Mass/Vol]0.54 mg/dLNormal0.40-1.00Henry County HospitalComment on above:Result Comment: METHOD TRACEABLE TO IDMS STANDARD Performed By: #### CBCA, FEPR, LIVR, 2275-4, 2132-05, 2284-04, 59328-0 #### [facility] ([id number]) [address], [address] [place] [address] #### 63853-5 #### [facility] ([id number]) [address] [place] [address] 98909WWMJ (CKD-EPI) NON-RACE DEPENDENT>^90Normal>=60ProMethodist Mckinney HospitalComment on above:Result Comment: eGFR not reported due to non- numeric value for Creatinine. Reported eGFR is based on the CKD-EPI 2020 equation that does not use a race coefficient.Performed By: #### CBCA, FEPR, LIVR, 2276-4, 2132-05, 2284-04, 61955-4 #### [facility] ([id number]) [address], [address] [place] [address] #### 38524-2 #### [facility] ([id number]) [address] [place] [address] 95952Yjqrjgj [Mass/Vol]96 mg/zPDbzaer00-58MydXptlsvMethodist Mckinney Hospital Comment on above:Performed By: #### CBCA, FEPR, LIVR, 2275-4, 9, 2284-04, 95164-3 #### [facility] ([id number]) [address], [address] [place] [address] #### 88389-6 #### [facility] ([id number]) [address] [place] [address] 78886Nwyguqlav [Moles/Vol]3.6 mmol/LNormal3.5-5.0ProMethodist Mckinney HospitalComment on above:Performed By: #### CBCA, FEPR, LIVR, 2275-, 2132-05, 2284-04, 22578-3 #### [facility] ([id number]) [address], [address] [place] [address] #### 93218-3 #### [facility] ([id number]) [address] [place] [address] 31245Plwdtro [Mass/Vol]6.3 g/dLNormal6.0-8.0ProMethodist Mckinney HospitalComment on above:Performed By: #### CBCA, FEPR, LIVR, 6-4, 2132-05, 2284-04, 92652-0 #### [facility] ([id number]) [address], [address] [place] [address] #### 54531-8 #### [facility] ([id number]) [address] [place] [address] 01676Wpidnz [Moles/Vol]133 mmol/UOmh737-113BtmObtaykMethodist Mckinney HospitalComment on above:Performed By: #### CBCA, FEPR, LIVR, 2276-4, 2132-9, 2284-8, 83847-8 #### [facility] ([id number]) [address] [place] [address], [address] [place] [address] #### 33966-2 #### [facility] ([id number]) [address] [place] [address] 21954Plnl nitrogen [Mass/Vol]12 mg/dLNormal5-23ProMethodist Mckinney HospitalComment on above:Performed By: #### CBCA, FEPR, LIVR, 6-4, 2-9, 2284-8, 43849-1 #### [facility] ([id number]) [address] [place] [address], [address] [place] [address] #### 84876-2 #### [facility] ([id number]) [address] [place] [address] 29078VWF,APTIMA HPV,AGE GDLNon 17-36-0775PCY GDLN ACOG TESTINGNote. NOMS HealthcareComment on above:TESTS RESULT FLAG UNITS REF RANGE LAB Clinician Provided Cytology Information Source.............Endocervix No. of containers..01 ThinPrep Vial Age Algo ACOG Luisa... 29- FLAG LEGEND: L-Low Normal,H-High Normal,LL-Alert Low,HH-Alert High <-Panic Low,>-Panic High,A-Abnormal,AA-Critical Abnormal Performed at: 01 =[address] [address] Flores Rodgers MD, HPV APTIMANegativeNegativeNOMS HealthcareComment on above:This nucleic acid amplification test detects fourteen high- risk HPV types (16,18,31,33,35,39,45,51,52,56,58,59,66,68) without differentiation. Performed at: =[facility] [id number] Sample Puller: Flores Rodgers MD, Phone: [phone] Performed at: [facility] [id number] Sample Puller: Flores Rodgers MD, Phone: [phone] IGP, APTIMA HPV, RFX 16/18,45Note.NOMS HealthcareComment on above:TESTS RESULT FLAG UNITS REF RANGE LAB DIAGNOSIS: 02 NEGATIVE FOR INTRAEPITHELIAL LESION OR MALIGNANCY. Specimen adequacy: 02 Satisfactory for evaluation. No endocervical component is identified. Performed by: 02 Jorge Whittington, Ios Developer ([facility]) . 02 Note: Note 02 The Pap [...] High,A-Abnormal,AA-Critical Abnormal Performed at: 02 [address] [facility] [address] [address] Flores Rodgers MD, SPATULA-ALONE ENDOCERVIX CLINISYNCNOMS HealthcareLIPASEon 04-30-8672Yjkaix [Catalytic activity/Vol]25 U/L Njjzmr80-68ItfGjnfkcMethodist Mckinney HospitalComment on above:Performed By: #### CBCA, FEPR, LIVR, 2276-4, 2132-9, 2284-8, 00510-7 #### [facility] ([id number]) [address] [facility], [address] [place] [address] #### 15774-1 #### [facility] ([id number]) [address] [place] [address], [place], [place] [address] NURSING URINE MACROSCOPIC UAon 26-62-6122BLEUOQGAV LAMBERT NegativeNormalNegativeHenry County HospitalComment on above:Performed By: #### NUM #### [facility] ([facility]) [address] [place] [address] VIRBLOOD/HGB NURNegativeNormalNegativeProMethodist Mckinney HospitalComment on above:Performed By: #### NUM #### [facility] ([address] [place] [address] VIRGLUCOSE NURNegativeNoalNegMarion Hospital Comment on above:Performed By: #### NUM #### [facility] ([address] [facility] [place] [address] VIRKETONES NURNegativeNoatrium health carolinas rehabilitation charlotteNegMarion Hospital Comment on above:Performed By: #### NUM #### [facility] ([address] [address] VIRLEUKOCYTE ESTERASE NURNegativeNormalNegMarion HospitalComment on above:Performed By: #### NUM #### [facility] ([address] [address] VIRNITRITE NURNegativeNormalNegMarion Hospital Comment on above:Performed By: #### NUM #### [facility] ([address] [address] VIRPH NUR6.9Tvveav4.0, 6.0, 6.5, 7.0, 7.5, 8.0, 8.5, 5.5 [facility] County HospitalComment on above:Performed By: #### NUM #### [facility] ([address] [address] VIRPROTEIN NURNegativeNormalNegMarion Hospital Comment on above:Performed By: #### NUM #### [facility] ([address] [address] VIRSPECIFIC GRAVITY NUR1.478Lilrnv2.010, 1.015, 1.020, 1.025 [facility] HospitalComment on above:Performed By: #### NUM #### [facility] ([address] [place] [address] VIRUROBILINOGEN NUR2.0 E.U./dLNoAshtabula County Medical Center Comment on above:Performed By: #### NUM #### [facility]) [address] [place] [address] VIRUS ABDOMEN LMTDon 12-74-7566DU ABDOMEN LMTDUS ABDOMEN LMTD US ABDOMEN LMTD [...] by Murali Mendoza MD on 06/17/2025 11:35 AMNormalHenry County HospitalUrinalysis macro (dipstick) panel (U)on 22-37-6222Yydxsompq, UANegative Negative - 4(70) +++ mg/dLNOMS HealthcareBlood, [...] - 1.03NOMS HealthcareUrobilinogen, UA2.0 0.2 - 12 mg/dLNOCenterpoint Medical CenterNOCenterpoint Medical CenterANTI THROMBIN 3 FUNCTon 05-29-2025 ANTI THROMBIN 3 FUNCT93 %Kkllmp23-809OsaWunbhj Clarkston HospitalComment on above: Performed By: #### UPCR #### [facility] ([facility]) [address] [place] [address] VIRB-TYPE NATRIURETIC PEPTIDEon 31-87-1664Xaenyjubqoa peptide B (Bld) [Mass/Vol]23 pg/mLNormal<=100ProMedica Baumann HospitalComment on above: Performed By: #### BNP #### [facility] ([facility]) [address] [place] [address] VIRCBC (NO DIFF)on 84-39-8525Sxajocqnjto distribution width (RBC) [Ratio]13.5 %Xvibba43.5-15ProMedica [facility]ston HospitalComment on above: Performed By: #### CBC #### [facility] ([facility]) [address] [place] [address] VIRHematocrit (Bld) [Volume fraction]33.8 %Hnu47-71KojGgsigi [place]ston HospitalComment on above:Performed By: #### CBC #### [facility] ([facility]) [address] [place] [address] VIRHemoglobin (Bld) [Mass/Vol]11.8 g/rGLjfeyd26.7-15.5ProMedica [facility]ston HospitalComment on above:Performed By: #### CBC #### [facility] ([facility]) [address] [place] [address] VIRMCH (RBC) [Entitic mass]30.9 xaSsaqow85-42QtsWqkjtu [place] HospitalComment on above:Performed By: #### CBC #### [facility] ([facility]) [address] [place] [address] VIRMCHC (RBC) [Mass/Vol]34.8 g/xBQfzvqx33-11DjeKynidb Baumann HospitalComment on above:Performed By: #### CBC #### [facility] ([facility]) [address] [place] [address] VIRMCV (RBC) [Entitic vol]89 lQNlppgn39-085FgxVwlxqr [place] HospitalComment on above:Performed By: #### CBC #### [facility] ([facility]) [address] [place] [address] VIRPlatelet mean volume (Bld) [Entitic vol]8.4 fLNormal7-12 Pro[facility] HospitalComment on above:Performed By: #### CBC #### [facility] ([facility]) [address] [place] [address] VIRPlatelets (Bld) [#/Vol]245 10*3/sSWsoxtw614-524RftYmdkyg [place] HospitalComment on above:Performed By: #### CBC #### [facility] ([facility]) [address] [place] [address] VIRRBC COUNT3.81 X10E12/LNormal3.8-5.2[facility] Comment on above:Performed By: #### CBC #### [facility] ([facility]) [address] [place] [address] VIRWBC (Bld) [#/Vol]9.8 10*3/uLNormal4-11ProTrinity Health System West Campusca [place] HospitalComment on above:Performed By: #### CBC #### [facility] ([facility]) [address] [place] [address] VIRCBC without diffon 59-96-4297Fypbgoqcvoz distribution width (RBC) [Ratio]13.5 %11.5 - 15 %ProMedica Health SystemHematocrit (Bld) [Volume fraction]33.8 %Low35 - 47 %ProMedica Health SystemHemoglobin (Bld) [Mass/Vol] 11.8 g/dL11.7 - 15.5 g/dLProMedica Health SystemInterpretation and review of laboratory resultsAbnormalProMedica Health SystemMCH (RBC) [Entitic mass]30.9 pg 27 - 34 pgPJoint Township District Memorial HospitalMCHC (RBC) [Mass/Vol]34.8 g/dL32 - 36 g/dL ProMWayne HospitalMCV (RBC) [Entitic vol]89 fL80 - 100 [facility] HospitalPlatelet mean volume (Bld) [Entitic vol]8.4 fL7 - 12 [facility] HospitalPlatelets (Bld) [#/Vol]245 10*3/[facility]Pipp HospitalRBC (Bld) [#/Vol] 3.81 10*6/[facility] HospitalWBC LM Ql (Sput)9.8[facility] Health SystemCOMPREHENSIVE METABOLIC PANELon 79-78-2163Akcryck [Mass/Vol]3.7 g/dLNormal3.2-5.3PProMedica Flower HospitalComment on above: Performed By: #### CMP #### [facility] ([facility]) [address] [place] [address] VIRALP [Catalytic activity/Vol]69 U/EStbfgd34-525EquMfgpxo [place] HospitalComment on above:Performed By: #### CMP #### [facility] ([facility]) [address] [place] [address] VIRALT [Catalytic activity/Vol]11 U/LNormal<=31PProMedica Flower HospitalComment on above:Performed By: #### CMP #### [facility] ([facility]) [address] [place] [address] VIRAnion gap [Moles/Vol]14 mmol/LNormal5-15ProMercy Health Tiffin HospitalComment on above:Performed By: #### CMP #### [facility] ([facility]) [address] [place] [address] VIRAST [Catalytic activity/Vol]12 U/LNormal<=41ProMercy Health Tiffin Hospital HospitalComment on above:Performed By: #### CMP #### [facility] ([facility]) [address] [place] [address] VIRBilirubin [Mass/Vol]0.3 mg/dLNormal0.3-1.2PProMedica [facility] HospitalComment on above:Performed By: #### CMP #### [facility] ([facility]) [address] [place] [address] VIRCalcium [Mass/Vol]8.8 mg/dLNormal8.5-10.5PProMedica [facility]iance [facility] HospitalComment on above:Performed By: #### CMP #### [facility] ([facility]) [address] [place] [address] VIRChloride [Moles/Vol]106 mmol/EPvjmkf54-752CmbKmukjv [place] HospitalComment on above:Performed By: #### CMP #### [facility] ([facility]) [address] [place] [address] VIRCO2 [Moles/Vol]19 mmol/KMrx07-44FpoYloooy [facility] Comment on above:Performed By: #### CMP #### [facility] ([facility]) [address] [place] [address] VIRCreatinine [Mass/Vol]0.45 mg/dLNormal0.40-1.00ProMercy Health Tiffin HospitalComment on above:Result Comment: METHOD TRACEABLE TO IDMS STANDARDPerformed By: #### CMP #### [facility] ([facility]) [address] [place] [address] VIREGFR (CKD-EPI) NON-RACE DEPENDENT>^90Normal>=60ProMercy Health Tiffin Hospital HospitalComment on above:Result Comment: Reported eGFR is based on the CKD-EPI 2020 equation that does not use a race coefficient.Performed By: #### CMP #### [facility] ([facility]) [address] [place] [address] VIRGlucose [Mass/Vol]128 mg/dZIqox38-24OkoQhjtrb [place] HospitalComment on above:Performed By: #### CMP #### [facility] ([facility]) [address] [place] [address] VIRPotassium [Moles/Vol]3.6 mmol/LNormal3.5-5.0ProMedica Baumann HospitalComment on above:Performed By: #### CMP #### [facility] ([facility]) [address] [place] [address] VIRProtein [Mass/Vol]6.5 g/dLNormal6.0-8.0ProMedica Baumann HospitalComment on above:Performed By: #### CMP #### [facility] ([facility]) [address] [place] [address] VIRSodium [Moles/Vol]139 mmol/OWmlnfd196-665GpuGwpecv Baumann HospitalComment on above:Performed By: #### CMP #### [facility] ([facility]) [address] [place] [address] VIRUrea nitrogen [Mass/Vol]9 mg/dLNormal5-23ProMedica Baumann HospitalComment on above:Performed By: #### CMP #### [facility] ([facility]) [address] [place] [address] VIRFERRITINon 20-22-1254Zueuwqqt [Mass/Vol]15 ng/qXTckpcx01-203 [facility]umann HospitalComment on above:Performed By: #### FERR #### [facility] ([facility]) [address] [place] [address] VIRFOLATEon 30-23-0727GTEEL ACID13.3 ng/mLNormal>5.8ProMedica Bamuann HospitalComment on above:Performed By: #### FOLI #### [facility] ([facility]) [address] [place] [address] VIRIRON AND TIBCon 63-20-3757Qgvx [Mass/Vol]71 ug/dLNormal 50-170ProMedica Baumann HospitalComment on above:Performed By: #### FEPR #### [facility] ([facility]) [address] [place] [address] VIRIRON HFDXDGH889 ug/qYGozo819-097PwdHarxkb [facility] Comment on above:Performed By: #### FEPR #### [facility] ([facility]) [address] [place] [address] VIRIRON PBIIFIIVEV43 % CDNZNDPRWILowgnl95-25EigQwbqta [place] HospitalComment on above:Performed By: #### FEPR #### [facility] ([facility]) [address] [place] [address] VIRTransferrin [Mass/Vol]332 mg/aFJqkeqq927-091BuoMfbmny [place] HospitalComment on above:Performed By: #### FEPR #### [facility] ([facility]) [address] [place] [address] VIRLDHon 13-09-5295HGE772 U/FNogmrw829-625KgoBkbbva [place] HospitalComment on above:Performed By: #### LDH #### [facility] ([facility]) [address] [place] [address] VIRPROTEIN C ACTIVITYon 30-43-1572JOCODJK C NYDNIEYQ871 %Normal 70-140ProMercy Health Tiffin HospitalComment on above:Performed By: #### UPCR #### [facility] ([facility]) [address] [place] [address] VIRPROTEIN CREAT RATIOon 05-29-2025U/PRO/SOFT METALS ENGRAVER HAND RATIO CALC0.08 Normal<=0.20ProMercy Health Tiffin HospitalComment on above:Order Comment: Nephrotic Syndrome is associated with ratios >3.5Performed By: #### UPCR #### [facility] ([facility]) [address] [place] [address] VIRURINE CREATININE,LUJ164.80 mg/dLNormalProMercy Health Tiffin Hospital HospitalComment on above:Order Comment: Nephrotic Syndrome is associated with ratios >3.5Performed By: #### UPCR #### [facility] ([facility]) [address] [place] [address] VIRURINE PROTEIN, RANDOM (MG/L)110 mg/LNormal<120ProMercy Health Tiffin HospitalComaleda e. [facility] on above:Order Comment: Nephrotic Syndrome is associated with ratios >3.5Performed By: #### UPCR #### [facility] ([facility]) [address] [place] [address] VIRPROTEIN S ACTIVITYon 57-98-1273UNLGUVG S [id number] %Low 64-149ProMercy Health Tiffin HospitalComaleda e. [facility] on above:Result Comment: Oral contraceptives, hormonal therapy, [...] other laboratory findings.Performed By: #### UPCR #### [facility] ([facility]) [address] [place] [address] VIRTHIAMIN (VITAMIN B1), WBon 71-60-3761OXKNPQB (VITAMIN B1), WB123 nmol/TKajzmn75-481UpcAsdxdg [facility]Com[facility] on above:Result Comment: ADDITIONAL INFORMATION This test was developed and its performance characteristics determined by [facility] in a manner consistent with CLIA requirements. This test has not been cleared or approved by the [place]. Food and Drug Administration. Test Performed by: [facility] [address] [place] [address] Sample Puller: Jayce Daniels Ph.D.; CLIA# [id number] By: #### UPCR #### [facility] ([facility]) [address] [place] [address] VIRURIC ACIDon 07-32-5938Omiig [Mass/Vol]4.4 mg/dLNormal2.6-7.2 [facility] CenterComment on above:Performed By: #### URIC #### [facility] ([facility]) [address] [place] [address] VIRVITAMIN B12on 76-85-0816Aqplaynwc (Vitamin B12) [Mass/Vol] 243 pg/eQFypsig250-369CozPqeqxq [facility] City Medical CenterComment on above:Performed By: #### UPCR #### [facility] ([facility]) [address] [place] [address] VIRVITAMIN D 25 HYDROXYon 55-85-9319ZKTFNRH D 25 HYD TOT27.1 ng/mLLow30.0-100.0[facility] Twin City Medical CenterComment on above:Order Comment: Vitamin D status 25 [place] Vitamin D Deficiency <20 ng/mL Insufficiency 20-29 ng/mL Sufficiency 30-100 ng/mL Toxicity >100 ng/mL NOTE: A pediatric reference range has not been established by the hopper filler of this kit. The [place] [employer] recommends a Vitamin D level of = or >20ng/mL in infants and children.Performed By: #### VITD #### [facility] ([facility]) [address] [place] [address] VIRZINC, SERUMon 96-46-1526VANY, S62 mcg/dNPklojm47-093 [facility] CenterComment on above:Result Comment: ADDITIONAL INFORMATION This test was developed and its performance characteristics determined by [facility] in a manner consistent with CLIA requirements. This test has not been cleared or approved by the U.S. Food and Drug Administration. Test Performed by: [facility] [address] [place] [address] Sample Puller: Jayce Daniels Ph.D.; IA# [id number] By: #### UPCR #### [facility] ([facility]) [address] [place] [address] VIRUrinalysis macro (dipstick) panel (U)on 07-01-2003Kzpklsqhu, UANegativeNegative - 4(70) +++ mg/dLNOMS HealthcareBlood, UANegativeNegative - 50 Raul/mcLNOMS HealthcareClarity, UAClearNOMS HealthcareColor, UAYellowNOMS HealthcareGlucose, UANegativeNegative - 2000(110) ++++ mg/dLNOMS Healthcare Interpretation and review of laboratory resultsNormalNOMS HealthcareKetones, UA NegativeNegative - 160(16) ++++ mg/dLNOMS HealthcareLeukocytes, UANegative Negative - 500+++ Ramo/mcLNOMS HealthcareNitrite, UANegativeNegative - Positive NOMS HealthcarepH, UA5.55 - 9NOMS HealthcareProtein, UANegativeNegative - 1999(20) ++++ mg/dLNOMS HealthcareSpec Grav, UA1.021 - 1.03N[facility] Healthcare Urobilinogen, UA1.00.2 - 12 mg/dLNOMS HealthcareNOMS HealthcareUrinalysis macro (dipstick) panel (U)on 08-06-4160Afffwryou, UANegativeNegative - 4(70) +++ mg/dL NOMS HealthcareBlood, UANegativeNegative - 50 Raul/mcLNOMS HealthcareClarity, UA ClearNOMS HealthcareColor, UAAmberNOMS HealthcareGlucose, UANegativeNegative - 2000(110) ++++ mg/dLNOMS HealthcareInterpretation and review of laboratory resultsNormalNOMS HealthcareKetones, UANegativeNegative - 160(16) ++++ mg/dLNOMS HealthcareLeukocytes, UANegativeNegative - 500+++ Ramo/mcLNOMS Healthcare Nitrite, UANegativeNegative - PositiveNOMS HealthcarepH, UA65 - 9[facility] Protein, UANegativeNegative - 2000(20) ++++ mg/dLNOMS HealthcareSpec Grav, UA 1.031 - 1.03NOMS HealthcareUrobilinogen, UA1.00.2 - 12 mg/dLNOHI HealthcareNOHI HealthcareBOX TESTon 20-29-9833NQZ TEST SENT OUTUNITYNOHI JtujdzcgvdYCC1YMWAO [facility] WmcsapwrxxFYD80/16/25NOHI HealthcareCLINISYNCBasic Metabolic Panelon 64-52-1000Pplymju [Mass/Vol]97 mg/dLOhio State Health SystemCBC and differential on 12-77-2788Iubngnrruz (Bld) [Volume fraction]37 %36 - 46 %[facility] Health SystemInterpretation and review of laboratory resultsAbnormalOhio State Health SystemWBC (Bld) [#/Vol]12.4 10*3/mLAbnormal3.3 - 10.0 10*3/mLOhio State Health SystemCBC without diffon 37-44-8741Zavgfvzszs (Bld) [Volume fraction]36.5 % [facility] SystemRb Mcv (Fl) By Automated Count87.1PJoint Township District Memorial HospitalDrug Screen, Urineon 36-87-2221Ruwelhibjat/MethamphetamineNegative [facility] SystemBarbituratesNegativePremier Health [facility] System BenzodiazepinesNegativeOhio State Health SystemCocaine MetaboliteNegative [facility] SystemMethadoneNegativeOhio State Health SystemOpiatesNegative [facility] SystemOxycodoneNegativeOhio State Health SystemPhencyclidine NegativeOhio State Health SystemThc Marijuana, UrineNegativeOhio State Health SystemHBV surface Ag IA Qlon 80-31-2333Szvzkifan B Surface AntigenNegative [facility] Health SystemHCV Ab IA Qlon 63-15-1279VLL Ab Ql (S)Non-Reactive [facility] Health SystemHIV 1+2 Ab+HIV1 p24 Ag IA Qlon 05-99-4682MXD 1&2 AB/AG Non-ReactiveOhio State Health SystemHemoglobin A1con 83-45-7048QvT3n (Bld) [Mass fraction]5 %4.0 - 6.0 %[facility] SystemLaboratory - Hematology and Cell countson 42-80-7482Amfonowgfs (Bld) [Mass/Vol]12.3 g/dLOhio State Health System Platelets (Bld) [#/Vol]243 10*3/uLOhio State Health SystemNo Panel Informationon 85-41-2672IJRW HealthcareRubella IGG immune statuson 47-74-3009Skibybs immune IgG1.59Ohio State Health SystemT. pallidum IgG+IgM IA Ql (S)Ordered By: Anne Pozo on 18-46-4464RhigodojAxl-ReactiveOhio State Health SystemHCG ( test) Ql (U)on 70-63-9265Aqbdgiwvkdbroy and review of laboratory resultsNormal [facility] HealthcarePreg Test, UrPositiveNegativeNOMS HealthcareNOMS HealthcareUS OB TRANSVAGINALon 74-37-0783IF OB TRANSVAGINALFINDINGS: A single intrauterine gestational sac [...] No LMP recorded.Urinalysis macro (dipstick) panel (U)on 91-52-3618Courjugja, UA NegativeNegative - 4(70) +++ mg/dLNOMS HealthcareBlood, UANegativeNegative - 50 Raul/mcLNOMS HealthcareClarity, UAClearNOMS HealthcareColor, UAYellowNOMS HealthcareGlucose, UANegativeNegative - 2000(110) ++++ mg/dLNOMS Healthcare Interpretation and review of laboratory resultsNormalNOHI HealthcareKetones, UA NegativeNegative - 160(16) ++++ mg/dLNOMS HealthcareLeukocytes, UATraceNegative - 500+++ Ramo/mcLNOMS HealthcareNitrite, UANegativeNegative - PositiveNOMS HealthcarepH, UA65 - 9NOMS HealthcareProtein, UANegativeNegative - 2000(20) ++++ mg/dLNOMS HealthcareSpec Grav, UA1.021 - 1.03NOMS HealthcareUrobilinogen, UA2.0 0.2 - 12 mg/dLNOMS HealthcareNOMS HealthcareCBC AND AUTO DIFFon 01-01-2025 ABSOLUTE BASOPHIL0.1 X10E9/LNormal0.0-0.2[facility] Mary HospitalComment on above:Performed By: #### CBCA, FEPR, LIVR, 6-4, 2131-9, 4-8, 13448-9 #### [facility] ([id number]) [address] [place] [address], [address] [place] [address] #### 14094-1 #### [facility] ([id number]) [address] [place] [address] 15560SDSWTTQG NEUTROPHIL6.0 X10E9/LNormal1.5-6.6ProMethodist Mckinney HospitalComment on above:Performed By: #### CBCA, FEPR, LIVR, 6-4, 9, 4-8, 05885-2 #### [facility] ([id number]) [address] [place] [address], [address] [place] [address] #### 16847-5 #### [facility] ([id number]) [address] [place] [address] 95757Ofccqxmqs/100 WBC (Bld)0.7 %NormalHenry County Hospital Comment on above:Performed By: #### CBCA, FEPR, LIVR, 6-4, 2131-9, 4-8, 24301-0 #### [facility] ([id number]) [address] [place] [address], [address] [place] [address] #### 33874-7 #### [facility] ([id number]) [address] [place] [address] 27920Ncqvcmohzwg (Bld) [#/Vol]0.1 10*3/uLNormal0.0-0.4ProMethodist Mckinney HospitalComment on above:Performed By: #### CBCA, FEPR, LIVR, 2275-, 2132-05, 2284-04, 25599-5 #### [facility] ([id number]) [address] [facility], [address] [place] [address] #### 26203-0 #### [facility] ([id number]) [address] [place] [address] 28355Jyykrsfbuzb/100 WBC (Bld)0.9 %NormalProMethodist Mckinney Hospital Comment on above:Performed By: #### CBCA, FEPR, LIVR, 2275-12, 2132-05, 2284-04, 19288-8 #### [facility] ([id number]) Formerly [facility], [facility] [facility], [address] [place] [address] #### 24907-9 #### [facility] ([id number]) [address] [place] [address] 89287Axnqeffaoux distribution width (RBC) [Ratio]14.2 %Normal 11.5-15.0ProMethodist Mckinney HospitalComment on above:Performed By: #### CBCA, FEPR, LIVR, 2275-12, 2132-05, 2284-04, 55710-7 #### [facility] ([id number]) [address] [facility], [address] [place] [address] #### 16225-5 #### [facility] ([id number]) [address] [place] [address] 28145Rznlkajnhj (Bld) [Volume fraction]38.0 %Cbrlid85-35XgiOeuhthMethodist Mckinney HospitalComment on above:Performed By: #### CBCA, FEPR, LIVR, 2275-12, 2132-05, 2284-04, 78558-0 #### [facility] ([id number]) [address] [facility], [address] [place] [address] #### 94206-2 #### [facility] ([id number]) [address] [place] [address] 87958Cifpnbveod (Bld) [Mass/Vol]12.8 g/eSJwvzzg46.7-15.5POhioHealth Southeastern Medical CenterComment on above:Performed By: #### CBCA, FEPR, LIVR, 6-4, 9, 2283-8, 09649-9 #### [facility] ([id number]) [address] [facility], [address] [place] [address] #### 84617-1 #### [facility] ([id number]) [address] [place] [address] 60699Eurxkfwxjyy (Bld) [#/Vol]3.8 10*3/uLHigh1.0-3.5POhioHealth Southeastern Medical CenterComment on above:Performed By: #### CBCA, FEPR, LIVR, 6-4, 9, 2283-8, 21908-0 #### [facility] ([id number]) [address] [facility], [address] [place] [address] #### 43727-7 #### [facility] ([id number]) [address] [place] [address] 37376Jgdjzithzio/100 WBC (Bld)36.4 %NormalProMedica [facility] Comment on above:Performed By: #### CBCA, FEPR, LIVR, 6-4, 9, 8, 33743-2 #### [facility] ([id number]) [address] [facility], [address] [place] [address] #### 05787-3 #### [facility] ([id number]) [address] [place] [address] 29394PVZ (RBC) [Entitic mass]28.8 esUruszy01-58UjwQyaprsMethodist Mckinney HospitalComment on above:Performed By: #### CBCA, FEPR, LIVR, 6-4, 2132-05, 2284-04, 69224-9 #### [facility] ([id number]) [address], [address] [place] [address] #### 49976-0 #### [facility] ([id number]) [address] [place] [address] 34192SXTS (RBC) [Mass/Vol]33.8 g/pBVbkwko63-59FjjAootbdMethodist Mckinney HospitalComment on above:Performed By: #### CBCA, FEPR, LIVR, 2275-12, 2132-05, 2284-04, 44222-1 #### [facility] ([id number]) [address], [address] [place] [address] #### 92018-8 #### [facility] ([id number]) [address] [place] [address] 15275ADM (RBC) [Entitic vol]85 tZLzwmia01-541PivJbquak Fremont HospitalComment on above:Performed By: #### CBCA, FEPR, LIVR, 2275-12, 2132-05, 2284-04, 23228-5 #### [facility] ([id number]) [address], [address] [place] [address] #### 22743-4 #### [facility] ([id number]) [address] [place] [address] 11480Oumodpflv (Bld) [#/Vol]0.4 10*3/uLNormal0-0.9ProMethodist Mckinney HospitalComment on above:Performed By: #### CBCA, FEPR, LIVR, 2275-, 2132-05, 2284-04, 28060-8 #### [facility] ([id number]) [address], [address] [place] [address] #### 86271-8 #### [facility] ([id number]) [address] [place] [address] 16663Qvqjagioe/100 WBC (Bld)4.1 %[facility] Comment on above:Performed By: #### CBCA, FEPR, LIVR, 6-4, 9, 2283-8, 59230-0 #### [facility] ([id number]) [address] [facility], [address] [place] [address] #### 52303-3 #### [facility] ([id number]) [address] [place] [address] 69580Vgnybxumwqi/100 WBC (Bld)57.9 %[facility] Comment on above:Performed By: #### CBCA, FEPR, LIVR, 6-4, 9, 2283-, 29663-0 #### [facility] ([id number]) [address] [facility], [address] [place] [address] #### 05501-0 #### [facility] ([id number]) [address] [place] [address] 60496Sajzeiri mean volume (Bld) [Entitic vol]8.7 fLNormal7-12 ProMedicMethodist Hospital of SacramentoComment on above:Performed By: #### CBCA, FEPR, LIVR, 6-4, 9, 2283-8, 94598-1 #### [facility] ([id number]) [address], [address] [place] [address] #### 86818-5 #### [facility] ([id number]) [address] [place] [address] 55084Sdtfzpqku (Bld) [#/Vol]308 10*3/nXRswknw211-598PyyQmusth Fremont HospitalComment on above:Performed By: #### CBCA, FEPR, LIVR, 2275-, 2132-05, 2284-04, 63106-1 #### [facility] ([id number]) [address], [address] [place] [address] #### 69282-4 #### [facility] ([id number]) [address] [place] [address] 57766HWV COUNT4.45 X10E12/LNormal3.80-5.20[facility] Comment on above:Performed By: #### CBCA, FEPR, LIVR, 2275-12, 2132-05, 2284-04, 33289-1 #### [facility] ([id number]) [address] [facility], [address] [place] [address] #### 63823-5 #### [facility] ([id number]) [address] [place] [address] 22688RWM (Bld) [#/Vol]10.5 10*3/uLNormal4.0-11.0[facility] HospitalComment on above:Performed By: #### CBCA, FEPR, LIVR, 2275-12, 2132-05, 2284-04, 79249-5 #### [facility] ([id number]) [address], [address] [place] [address] #### 83354-3 #### [facility] ([id number]) [address] [place] [address] 28280NDXTAXCOlu 51-31-1171Tynpeife [Mass/Vol]40 ng/kKJzkkam20-932 [facility] HospitalComment on above:Performed By: #### CBCA, FEPR, LIVR, 2275-12, 2132-05, 2284-04, 41470-3 #### [facility] ([id number]) [address] [facility], [address] [place] [address] #### 11616-0 #### [facility] ([id number]) [address] [place] [address] 69451Nkpgxi [Mass/Vol]on 40-05-6541UOJQN ACID4.0 ng/mLLow>5.8 [facility] HospitalComment on above:Result Comment: NEW REFERENCE RANGE Performed By: #### CBCA, FEPR, LIVR, 6-4, 9, 8, 84888-6 #### [facility] ([id number]) [address] [place] [address], [address] [place] [address] #### 57420-2 #### [facility] ([id number]) [address] [place] [address] 25772DWQL PROFILEon 92-77-8939Kfhn [Mass/Vol]36 ug/xVHwx89-379 [facility] HospitalComment on above:Performed By: #### CBCA, FEPR, LIVR, 6-4, 2132-05, 2284-04, 62075-4 #### [facility] ([id number]) [address] [place] [address], [address] [place] [address] #### 00586-8 #### [facility] ([id number]) [address] [place] [address] 98567NSBL VZGJJXY284 ug/eYFyrajl473-854YpmZbmjbq [facility] Comment on above:Performed By: #### CBCA, FEPR, LIVR, 6-4, 9, 2284-04, 54791-3 #### [facility] ([id number]) [address] [facility], [address] [place] [address] #### 96264-2 #### [facility] ([id number]) [address] [place] [address] 98549BZPL UAFCMLYNZJ10 % IJOTBTZTYOZew86-17XqyGbbqwz [facility] HospitalComment on above:Performed By: #### CBCA, FEPR, LIVR, 2275-4, 2132-05, 2284-04, 59560-5 #### [facility] ([id number]) [address] [facility], [address] [place] [address] #### 00595-2 #### [facility] ([id number]) [address] [place] [address] 71436ADUIE PANELon 73-12-7559Uzpxonu [Mass/Vol]4.1 g/dLNormal3.2-5.3 [facility] HospitalComment on above:Performed By: #### CBCA, FEPR, LIVR, 2275-12, 2132-05, 2284-04, 20722-0 #### [facility] ([id number]) Formerly [facility], [facility] [facility], [address] [place] [address] #### 82338-7 #### [facility] ([id number]) [address] [place] [address] 71500WPL [Catalytic activity/Vol]95 U/YXdtkbx75-520ItkAawczgMethodist Mckinney HospitalComment on above:Performed By: #### CBCA, FEPR, LIVR, 2275-12, 2132-05, 2284-04, 69257-8 #### [facility] ([id number]) [address] [facility], [address] [place] [address] #### 74857-7 #### [facility] ([id number]) [address] [place] [address] 62903JZC [Catalytic activity/Vol]24 U/LNormal0-31Pro[facility] HospitalComment on above:Performed By: #### CBCA, FEPR, LIVR, 2275-12, 2132-05, 2284-04, 57714-3 #### [facility] ([id number]) [address], [address] [place] [address] #### 89146-8 #### [facility] ([id number]) [address] [place] [address] 45263AQC [Catalytic activity/Vol]18 U/LNormal0-41ProMethodist Mckinney HospitalComment on above:Performed By: #### CBCA, FEPR, LIVR, 6-4, 9, 2284-04, 78896-6 #### [facility] ([id number]) [address] [facility] [facility], [address] [place] [address] #### 54246-4 #### [facility] ([id number]) [address] [place] [address] 87250Eohbbqhpk [Mass/Vol]0.4 mg/dLNormal0.3-1.2Pro[facility] HospitalComment on above:Performed By: #### CBCA, FEPR, LIVR, 2275-4, 9, 2284-04, 31150-5 #### [facility] ([id number]) [address], [address] [place] [address] #### 57011-7 #### [facility] ([id number]) [address] [place] [address] 13182Ngqwaxevk.direct [Mass/Vol]0.2 mg/dLNormal0.0-0.4ProMethodist Mckinney HospitalComment on above:Performed By: #### CBCA, FEPR, LIVR, 6-4, 9, 2284-04, 38464-6 #### [facility] ([id number]) [address], [address] [place] [address] #### 48544-7 #### [facility] ([id number]) [address] [place] [address] 83264Ahgrxko [Mass/Vol]7.1 g/dLNormal6.0-8.0ProMethodist Mckinney HospitalComment on above:Performed By: #### CBCA, FEPR, LIVR, 2275-12, 2132-05, 2284-04, 35110-7 #### [facility] ([id number]) [address], [address] [place] [address] #### 59081-5 #### [facility] ([id number]) [address] [place] [address] 08389Somrrbej (Bld) [Moles/Vol]on 64-90-4239Kwtssdc (Vitamin B1), WB 118 nmol/TEijrns94-836MlbVdwpagMethodist Mckinney HospitalComment on above:Result Comment: NOTE ADDITIONAL INFORMATION This test was developed and its performance characteristics determined by [facility] in a manner consistent with CLIA requirements. This test has not been cleared or approved by the U.S. Food and Drug Administration. Test Performed by: [facility] [address] [place], [place] [id number] Sample Puller: Jayce Daniels Ph.D.; CLIA# [id number] By: #### CBCA, FEPR, LIVR, 2275-12, 2132-05, 2284-04, 16087-2 #### [facility] ([id number]) [address] [facility] [facility], [address] [place] [address] #### 49963-6 #### [facility] ([id number]) [address] [place], [place] [address]JZJYGGH B12on 85-21-2485Fdpaibnmd (Vitamin B12) [Mass/Vol]379 pg/vUYjoclf023-583KcgEulaqt [facility] HospitalComment on above:Performed By: #### CBCA, FEPR, LIVR, 2275-12, 2132-9, 2284-8, 81031-7 #### [facility] ([id number]) [address] [place] [address], [address] [place] [address] #### 67042-0 #### [facility] ([id number]) [address] [place] [address] 49742Juaymat D+Metabolites [Mass/Vol]on 40-76-5584TYAVUIB D 25 HYD TOT32.4 ng/bVYohsyx35-945LjsBhyzzo [facility] HospitalComment on above:Result Comment: Vitamin D status 25 [place] Vitamin D Deficiency <20 ng/mL Insufficiency 20-29 ng/mL Sufficiency 30-100 ng/mL Toxicity >100 ng/mL NOTE: A pediatric reference range has not been established by the hopper filler of this kit. The [employer] recommends a Vitamin D level of = or >20ng/mL in infants and children.Performed By: #### CBCA, FEPR, LIVR, 2276-4, 2-9, 2284-8, 90606- 6 #### [facility] ([id number]) [address] [place] [address], [address] [place] [address] #### 38224-1 #### [facility] ([id number]) [address] [place] [address] [id number] SPINE LUMBAR 2 OR 3 VWSon [id number] SPINE LUMBAR 2 OR 3 VWSXR SPINE [...] by Jovanni Gallegos MD on 12/15/2024 1:53 PMNormalProMethodist Mckinney HospitalLaboratory - Microbiology and Antimicrobial susceptibilityon 10-10-2024 SARS-CoV-2 (COVID-19) RNA MYNOR+probe Ql (Unsp spec)NegativeNOMS HealthcareNo Panel Informationon [id number] APositiveNOMS HealthcareFLU BNegativeNOMS HealthcareInterpretation and review of laboratory resultsAbnormalProgress [facility] NOMS HealthcareUrinalysis macro (dipstick) panel (U)on 34-76-1143Ebtjbuvxe, UA NegativeNegative - 4(70) +++ mg/dLNOHI HealthcareBlood, UAPositiveNegative - 50 Raul/mcLNOMS HealthcareClarity, UAClearNOMS HealthcareColor, UAYellowNOHI HealthcareGlucose, UANegativeNegative - 2000(110) ++++ mg/dLNOMS Healthcare Interpretation and review of laboratory resultsAbnormalSTEWARD HEALTH CARE SYSTEM HealthcareKetones, UAPositiveNegative - 160(16) ++++ mg/dLNOHI HealthcareLeukocytes, UA1+Negative - 500+++ Ramo/mcLNOHI HealthcareNitrite, UANegativeNegative - PositiveNOMS HealthcarepH, UA5.05 - 9NOMS HealthcareProtein, UA1+Negative - 2000(20) ++++ mg/dLNOHI HealthcareSpec Grav, UA1.0201 - 1.03NOMS HealthcareUrobilinogen, UA4.0 0.2 - 12 mg/dLNOHI HealthcareNOMS HealthcareAmbulatory referral to Nutrition Serviceson [id number] [place], [place] [address]Creatinine includes GFR, serumon 29-27-2728Tyjyvafgaj [Mass/Vol]0.69 mg/dL0.40 - 1.00 mg/dLOhio State Health SystemComment on above:METHOD TRACEABLE TO IDHI STANDARDeGFR (CKD-EPI)non-race dependent- [facility] HospitalComment on above: Reported eGFR is based on the CKD-EPI 2020 equation that does not use a race coefficient. [facility] Health SystemHemoglobin and hematocrit, bloodon 43-22-2949Ivoccvamqr (Bld) [Volume fraction]35.0 %35 - 47 %[facility] SystemHemoglobin (Bld) [Mass/Vol]11.4 g/dLLow11.7 - 15.5 g/dLOhio State Health SystemInterpretation and review of laboratory resultsAbnoUNC Health Johnston ClaytonNo Panel Information on 23-70-8634WmnPnxjzj Health SystemPlatelet counton 57-93-1124Gymllrro mean volume (Bld) [Entitic vol]7.8 fL7 - 12 fLPJoint Township District Memorial HospitalPlatelets (Bld) [#/Vol]323 10*3/uLProSumma Health Barberton CampusHCG ( test) Ql (U)on 08-36-7569MrgOmdcekJoint Township District Memorial HospitalPOCT , urineon 65-02-1612NAX ( test) Ql (U)NegativeNegative^NegativeOhio State Health SystemBasi Metabolic Panelon 59-97-5583Vcjks gap [Moles/Vol]11 mmol/L5 - 15 mmol/[facility] SystemCalcium [Mass/Vol]9.6 mg/dL8.5 - 10.5 mg/dLOhio State Health System Chloride [Moles/Vol]102 mmol/L98 - 109 mmol/[facility] Health SystemCO2 [Moles/Vol]24 mmol/L22 - 32 mmol/[facility] SystemCreatinine [Mass/Vol] 0.60 mg/dL0.40 - 1.00 mg/dLOhio State Health SystemComment on above:METHOD TRACEABLE TO IDHI STANDARDeGFR (CKD-EPI)non-race dependent- PINEllis Fischel Cancer CenterComment on above: Reported eGFR is based on the CKD-EPI 2020 equation that does not use a race coefficient. Glucose [Mass/Vol]110 mg/bQQpen15 - 99 mg/dLOhio State Health System Interpretation and review of laboratory resultsAbnoUNC Health Johnston Clayton Potassium [Moles/Vol]4.2 mmol/L3.5 - 5.0 mmol/[facility] SystemSodium [Moles/Vol]137 mmol/L134 - 146 mmol/[facility] SystemUrea nitrogen [Mass/Vol]13 mg/dL5 - 23 mg/dLBrooke Glen Behavioral HospitalCBC without diffon [id number] distribution width (RBC) [Ratio]15.0 %11.5 - 15.0 %[facility] SystemHematocrit (Bld) [Volume fraction]38.3 %35 - 47 % [facility] SystemHemoglobin (Bld) [Mass/Vol]12.8 g/dL11.7 - 15.5 g/dL [facility] SystemMCH (RBC) [Entitic mass]27.7 pg27 - 34 [facility] HospitalMCHC (RBC) [Mass/Vol]33.5 g/dL32 - 36 g/dLOhio State Health SystemMCV (RBC) [Entitic vol]83 fL80 - 100 [facility] HospitalPlatelet mean volume (Bld) [Entitic vol]7.9 fL7 - 12 [facility] HospitalPlatelets (Bld) [#/Vol]318 10*3/[facility] HospitalRBC (Bld) [#/Vol]4.63 10*6/[facility] HospitalWBC corrected for nucl RBC Auto (Bld) [#/Vol]9.0[facility] SystemCBC AUTO DIFFon [id number] #0.1 103/ulNormal0.0-0.1 [facility] Community HospitalComment on above:Performed By: #### CBC #### [facility] [address] [place] [address] Dr. Emmanuel MurrayBasophils/100 WBC (Bld)0.6 %Normal0.2-2.0[facility] Comment on above:Performed By: #### CBC #### [facility] [address] [place] [address] Dr. Emmanuel Hopkins #0.2 103/ulNormal0.0-0.7The [facility] HospitalComment on above: Performed By: #### CBC #### [facility] [address] [place] [address] Dr. Emmanuel Brownosinophils/100 WBC (Bld)1.8 %Normal0.9-7.0[facility] Comment on above:Performed By: #### CBC #### [facility] [address] [place] [address] Dr. Yilan ChangErythrocyte distribution width (RBC) [Ratio]14.4 %Johzay44.0-15.0 The [facility] HospitalComment on above:Performed By: #### CBC #### [facility] [address] [place] [address] Dr. Emmanuel MurrayHematocrit (Bld) [Volume fraction]37.7 %Bbvchy30.0-48.0The [facility] HospitalComment on above:Performed By: #### CBC #### [facility] [address] [place] [address] Dr. Emmanuel MurrayHemoglobin (Bld) [Mass/Vol]12.2 g/dIZhabzm31.0-16.0The [facility] HospitalComment on above:Performed By: #### CBC #### [facility] [address] [place] [address] Dr. Emmanuel Gunderson #0.08 10e3/ulCritically high0.00-0.03The [facility] Comment on above:Performed By: #### CBC #### [facility] [address] [place] [address] Dr. Emmanuel Gunderson %0.8 %Critically high0.0-0.5The [facility] HospitalComment on above:Performed By: #### CBC #### [facility] [address] [place] [address] Dr. Emmanuel Dorsey #3.0 103/ulNormal1.2-3.8The [facility] HospitalComment on above:Performed By: #### CBC #### [facility] [address] [place] [address] Dr. Emmanuel Cateshocytes/100 WBC (Bld)30.6 %Xxywbp30.5-60.0The [facility] HospitalComment on above:Performed By: #### CBC #### [facility] [address] [place] [address] Dr. Emmanuel AwadUAL DIFF REQNONormalThe [facility] HospitalComment on above: Performed By: #### CBC #### [facility] [address] [place] [address] Dr. Emmanuel Austin (RBC) [Entitic mass]26.0 pgCritically low26.7-34.0The [facility] HospitalComment on above:Performed By: #### CBC #### [facility] [address] [place] [address] Dr. Emmanuel Marcus (RBC) [Mass/Vol]32.4 g/iXIbnhqe66.9-35.2The [facility] HospitalComment on above:Performed By: #### CBC #### [facility] [address] [place] [address] Dr. Emmanuel Marcus (RBC) [Entitic vol]80.4 fLCritically low81.0-99.0The [facility] HospitalComment on above:Performed By: #### CBC #### [facility] [address] [place] [address] Dr. Emmanuel Baldwin #0.4 103/ulNormal0.3-0.8The [facility] HospitalComment on above:Performed By: #### CBC #### [facility] [address] [place] [address] Dr. Emmanuel Sanchezocytes/100 WBC (Bld)4.6 %Normal1.7-12.0The [facility] Comment on above:Performed By: #### CBC #### [facility] [address] [place] [address] Dr. Emmanuel Hannah #6.0 103/ulNormal1.4-6.5The [facility] HospitalComment on above:Performed By: #### CBC #### [facility] [address] [place] [address] Dr. Emmanuel Hamptonutrophils/100 WBC (Bld)61.6 %Wjafcf12.0-75.0The [facility] HospitalComment on above:Performed By: #### CBC #### [facility] [address] [place] [address] Dr. Emmanuel Coboslet mean volume (Bld) [Entitic vol]8.9 fLCritically low 9.5-13.5The [facility] HospitalComment on above:Performed By: #### CBC #### [facility] [address] [place] [address] Dr. Emmanuel MurrayPLT301 103/emZxyqhu964-654UdsHocking Valley Community HospitalComment on above: Performed By: #### CBC #### [facility] [address] [place] [address] Dr. Emmanuel MurrayRBC4.69 106/ulNormal4.20-5.40The [facility] HospitalComment on above:Performed By: #### CBC #### [facility] [address] [place] [address] Dr. Emmanuel MurrayWBC9.7 103/ulNormal4.0-11.0The [facility] HospitalComment on above: Performed By: #### CBC #### [facility] [address] [place] [address] Dr. Emmanuel MurrayPREG QUANT HCGon [id number] QUANT1 mIU/mLNormalThe [facility] HospitalComment on above:Performed By: #### CVDTBH #### [facility] [address] [place] [address] Dr. Emmanuel MurrayHCG [facility] Orthopedic CenterComment on above: Result Comment: 5-50 0.2-1 WEEK 50-500 1-2 WEEKS 100-5,000 2-3 WEEKS 500-10,000 3-4 WEEKS 1,000-50,000 4-5 WEEKS 10,000-100,000 5-6 WEEKS 15,000-200,000 6-8 WEEKS 10,000-100,000 2-3 MONTHSPerformed By: #### CVDTBH #### [facility] [address] [place] [address] Dr. Emmanuel MurrayUS PELVIS AND TRANSVAGon [id number] PELVIS AND TRANSVAG EXAMINATION: US PELVIS AND [...] Electronically authenticated by: ASHLEY GRIER Date: 2022-09-26 16:50McKitrick HospitalOG PANEL 2: 21 to 29on 07-04-2022..NormalThe [facility] on above:Performed By: #### [id number] #### [facility] [address] [place] [address] Dr. Emmanuel MurrayAge [facility] Fmoothk90-95HuykbmScwWooster Community Hospital on above:Performed By: #### [id number] #### [facility] [address] [place] [address] Dr. Emmanuel MurrayDIAGNOSIS:CommentSt. Anthony's Hospital on above: Result Comment: NEGATIVE FOR INTRAEPITHELIAL LESION OR MALIGNANCY.Performed By: #### [id number] #### [facility] [address] [place] [address] Dr. Emmanuel MurrayMethodology:CommentSt. Anthony's Hospital on above: Result Comment: This liquid based ThinPrep(R) pap test was screened with the use of an image guided system.Performed By: #### [id number] #### [facility] [address] [place] [address] Dr. Emmanuel MurrayNote:CommentSt. Anthony's Hospital on above:Result Comment: The Pap smear is a screening test designed to aid in the detection of premalignant and malignant conditions of the uterine cervix. It is not a diagnostic procedure and should not be used as the sole means of detecting cervical cancer. Both false-positive and false-negative reports do occur. .Performed By: #### [id number] #### [facility] [address] [place] [address] Dr. Emmanuel MurrayPerformed by:CommentSt. Anthony's Hospital on above: Result Comment: Nathalia Grier, Body Piercer (ASCP)Performed By: #### [id number] #### [facility] [address] [place] [address] Dr. Emmanuel MurrayReflex Criteria:CommentSt. Anthony's Hospital on above:Result Comment: The HPV DNA reflex criteria were not met with this specimen result therefore, no HPV testing was performed. .Performed By: #### [id number] #### [facility] [address] [place] [address] Dr. Emmanuel MurraySpecimen adequacy:CommentSt. Anthony's Hospital on above:Result Comment: Satisfactory for evaluation. No endocervical component is identified.Performed By: #### [id number] #### [facility] [address] [place] [address] Dr. Emmanuel MurrayUS PELVIS AND TRANSVAGon [id number] PELVIS AND TRANSVAG EXAMINATION: US PELVIS AND [...] Electronically authenticated by: ASHLEY GRIER Date: 2022-07-02 16:21[facility] AUTO DIFFon [id number] #0.0 103/ulNormal0.0-0.1The [facility]tering Healthment on above:Performed By: #### CBC #### [facility] [address] [place] [address] Dr. Emmanuel MurrayBasophils/100 WBC (Bld)0.5 %Normal0.2-2.0[facility] Comment on above:Performed By: #### CBC #### [facility] [address] [place] [address] Dr. Emmanuel Hopkins #0.2 103/ulNormal0.0-0.7The Kettering Healthment on above: Performed By: #### CBC #### [facility] [address] [address] [address] Emmanuel Brownosinophils/100 WBC (Bld)1.8 %Normal0.9-7.0The [facility] on above:Performed By: #### CBC #### [facility] [address] [place] [address] Dr. Emmanuel Brownrythrocyte distribution width (RBC) [Ratio]14.3 %Sxyhvt17.0-15.0 The [facility] HospitalComment on above:Performed By: #### CBC #### [facility] [address] [place] [address] Dr. Emmanuel MurrayHematocrit (Bld) [Volume fraction]36.8 %Zfjprx34.0-48.0The [facility] HospitalComment on above:Performed By: #### CBC #### [facility] [address] [place] [address] Dr. Emmanuel MurrayHemoglobin (Bld) [Mass/Vol]11.5 g/dLCritically low12.0-16.0The [facility] HospitalComment on above:Performed By: #### CBC #### [facility] [address] [place] [address] Dr. Emmanuel Gunderson #0.03 10e3/ulNormal0.00-0.03The [facility] HospitalComment on above:Performed By: #### CBC #### [facility] [address] [place] [address] Dr. Emmanuel Gunderson %0.4 %Normal0.0-0.5The [facility] Healthment on above: Performed By: #### CBC #### [facility] [address] [place] [address] Dr. Emmanuel CatesH #1.9 103/ulNormal1.2-3.8The [facility] HospitalComment on above:Performed By: #### CBC #### [facility] [address] [place] [address] Dr. Emmanuel Hanksmphocytes/100 WBC (Bld)23.2 %Minauz99.5-60.0The [facility] HospitalComment on above:Performed By: #### CBC #### [facility] [address] [address] [address] Emmanuel Guevara DIFF REQNONormalThe [facility] HospitalComment on above: Performed By: #### CBC #### [facility] [address] [place] [address] Dr. Emmanuel Marcus (RBC) [Entitic mass]25.6 pgCritically low26.7-34.0The [facility] HospitalComment on above:Performed By: #### CBC #### [facility] [address] [place] [address] Dr. Emmanuel Marcus (RBC) [Mass/Vol]31.3 g/wIVnsslm67.9-35.2The [facility] HospitalComment on above:Performed By: #### CBC #### [facility] [address] [place] [address] Dr. Emmanuel Marcus (RBC) [Entitic vol]81.8 kQDwzrek97.0-99.0The [facility] HospitalComment on above:Performed By: #### CBC #### [facility] [address] [place] [address] Dr. Emmanuel Baldwin #0.3 103/ulNormal0.3-0.8The [facility] HospitalComment on above:Performed By: #### CBC #### [facility] [address] [place] [address] Dr. Emmanuel Sanchezocytes/100 WBC (Bld)3.5 %Normal1.7-12.0The [facility] Comment on above:Performed By: #### CBC #### [facility] [address] [place] [address] Dr. Emmanuel Hannah #5.9 103/ulNormal1.4-6.5The [facility] HospitalComment on above:Performed By: #### CBC #### [facility] [address] [place] [address] Dr. Emmanuel Hamptonutrophils/100 WBC (Bld)70.6 %Utdmrk34.0-75.0[facility] HospitalComment on above:Performed By: #### CBC #### [facility] [address] [address] [address] Emmanuel Christy mean volume (Bld) [Entitic vol]9.5 fLNormal9.5-13.5The [facility] HospitalComment on above:Performed By: #### CBC #### [facility] [address] [place] [address] Dr. Emmanuel IslasT292 103/jnKhhlwt036-165Epp [facility] HospitalComment on above: Performed By: #### CBC #### [facility] [address] [place] [address] Dr. Emmanuel MurrayRBC4.50 106/ulNormal4.20-5.40[facility] HospitalComaleda e. [facility] on above:Performed By: #### CBC #### [facility] [address] [place] [address] Dr. Emmanuel MurrayWBC8.4 103/ulNormal4.0-11.0[facility] Anne Hospitalment on above: Performed By: #### CBC #### [facility] [address] [place] [address] Dr. Emmanuel King QUANT HCGon [id number] QUANT<1NormalHocking Valley Community Hospital Comment on above:Performed By: #### PREGQNT, TSH #### [facility] [address] [place] [address] Dr. Emmanuel Vasquez RANGESEE BELOWNoUniversity Hospitals St. John Medical Centere [facility] HospitalComment on above: Result Comment: 5-50 0.2-1 WEEK 50-500 1-2 WEEKS 100-5,000 2-3 WEEKS 500-10,000 3-4 WEEKS 1,000-50,000 4-5 WEEKS 10,000-100,000 5-6 WEEKS 15,000-200,000 6-8 WEEKS 10,000-100,000 2-3 MONTHSPerformed By: #### PREGQNT, TSH #### [facility] [address] [place] [address] Dr. Emmanuel MurrayPROTIMEon [id number] Coag (PPP) [Relative time]1.01 {INR} NormalThe [facility] HospitalComment on above:Performed By: #### PT, PTT #### [facility] [address] [place] [address] Dr. Emmanuel Cantu GUIDELINESSEE [facility] Hospital, AvonComment on above:Result Comment: DESIRED INR: 2.0 - 3.0 CONDITIONS NOT LISTED BELOW 2.5 - 3.5 FOR PROSTHETIC HEART VALVE REPLACEMENT 2.5 - 3.5 RECURRENT THROMBOSIS Performed By: #### PT, PTT #### [facility] [address] [place] [address] Dr. Emmanuel Sterling Coag (PPP) [Time]10.9 sNormal9.0-11.6The [facility] Comment on above:Performed By: #### PT, PTT #### [facility] [address] [place] [address] Dr. Emmanuel Lobo [id number] Coag (Bld) [Time]27.2 lUyemwc44.3-36.2[facility] HospitalComment on above:Performed By: #### PT, PTT #### [facility] [address] [place] [address] Dr. Emmanuel Gtz [id number] uIU/mLNormal0.358-3.740The [facility] HospitalComaleda e. l[facility] center on above:Performed By: #### PREGQNT, TSH #### [facility] [address] [place] [address] Dr. Emmanuel Saunders Metabolic Panelon [id number] gap [Moles/Vol]13 mmol/L9 - 17 mmol/LMercy HealthCalcium [Mass/Vol]9.2 mg/dL8.6 - 10.4 mg/dLUniversity Hospitals Par[facility] Chloride [Moles/Vol]99 mmol/L98 - 107 mmol/LMercy HealthCO2 [Moles/Vol]23 mmol/L 20 - 31 mmol/LMercy HealthCreatinine [Mass/Vol]0.53 mg/dL0.50 - 0.90 mg/dLMercy HealthGFR >60>60 mL/minBrown Memorial Hospital HealthGFR Non->60 >60 mL/minBrown Memorial Hospital HealthGFR/1.73 sq M.predicted MDRD (S/P/Bld) [Vol rate/Area] [facility] on above:Average GFR for 20-29 years old: 116 mL/min/1.73sq m Chronic Kidney Disease: <60 mL/min/1.73sq m Kidney failure: <15 mL/min/1.73sq m eGFR calculated using average adult body mass. Additional eGFR calculator available at: http://www.[employer]/multiple_crcl_2011.htm Glucose [Mass/Vol]109 mg/wZTdnf68 - 99 mg/dLBrown Memorial Hospital HealthInterpretation and review of laboratory resultsAbnormalUniversity Hospitals Parma Medical CenterPotassium [Moles/Vol]4.2 mmol/L 3.7 - 5.3 mmol/LMercy HealthSodium [Moles/Vol]135 mmol/L135 - 144 mmol/LMercy HealthUrea nitrogen (BldV) [Mass/Vol]13 mg/dL6 - 20 mg/dLBrown Memorial Hospital HealthUrea nitrogen/Creatinine (Bld) [Mass ratio]25ThedaCare Regional Medical Center–NeenahBasic Metabolic Profon 12-05-2021(cont.)[facility] HospitalComaleda e[facility] on above: Result Comment: Average GFR for 20-29 years old: 116 mL/min/1.73sq m Chronic Kidney Disease: <60 mL/min/1.73sq m Kidney failure: <15 mL/min/1.73sq m eGFR calculated using average adult body mass. Additional eGFR calculator available at: http://www.[employer]/multiple_crcl_2011.htmPerformed By: #### CBC, HEPXA, CMPX, MG, TSHX, TROPI #### [facility] [address] [place] [address] Sample Puller: Dexter Fried MD #### LIPR #### [facility] [address] [place] [address] Sample Puller: Paco Madoff, MDAnion gap [Moles/Vol]13 mmol/LNormal9-17L[facility] Memorial HospitalComment on above:Performed By: #### CBC, HEPXA, CMPX, MG, TSHX, TROPI #### [facility] [address] [place] [address] Sample Puller: Dexter Fried MD #### LIPR #### [address] [address] Sample Puller: Paco Tatum MDBUN/CRE Ohquf81Iqlm9-68GtkmmLicking Memorial Hospital Comment on above:Performed By: #### CBC, HEPXA, CMPX, MG, TSHX, TROPI #### [facility] [address] [place] [address] Sample Puller: Dexter Fried MD #### LIPR #### [address] [address] Sample Puller: CELESTE Porteralcium [Mass/Vol]9.2 mg/dLNormal8.6-10.4[facility] HospitalComment on above:Performed By: #### CBC, HEPXA, CMPX, MG, TSHX, TROPI #### [facility] [address] [place] [address] Sample Puller: Dexter Fried MD #### LIPR #### [address] [address] Sample Puller: Paco Tatum MDChloride [Moles/Vol]99 mmol/TEszpuu32-979AdvsiLicking Memorial HospitalComment on above:Performed By: #### CBC, HEPXA, CMPX, MG, TSHX, TROPI #### [facility] [address] [place] [address] Sample Puller: Dexter Fried MD #### LIPR #### [address] [address] Sample Puller: CELESTE PorterO2 [Moles/Vol]23 mmol/TNvpykj43-27XmbbzLicking Memorial HospitalComaleda e. [facility] medical center on above:Performed By: #### CBC, HEPXA, CMPX, MG, TSHX, TROPI #### [facility] [address] [place] [address] Sample Puller: Dexter Fried MD #### LIPR #### [address] [address] Sample Puller: CELESTE Porterreatinine [Mass/Vol]0.53 mg/dLNormal0.50-0.90 [facility] HospitalComaleda e. [facility] medical center on above:Performed By: #### CBC, HEPXA, CMPX, MG, TSHX, TROPI #### [facility] [address] [place] [address] Sample Puller: Dexter Fried MD #### LIPR #### [address] [address] Sample Puller: Paco Tatum MDGFR, Amer>60Normal>60L[facility] HospitalComaleda e. [facility] medical center on above:Performed By: #### CBC, HEPXA, CMPX, MG, TSHX, TROPI #### [facility] [address] [place] [address] Sample Puller: Dexter Fried MD #### LIPR #### [address] [address] Sample Puller: Pcao Tatum MDGFR,non Amer>60Normal>60MerSnoqualmie Valley HospitalComaleda e. l[facility] veterans affairs medical center on above:Performed By: #### CBC, HEPXA, CMPX, MG, TSHX, TROPI #### [facility] [address] [place] [address] Sample Puller: Dexter Fried MD #### LIPR #### [address] [address] Sample Puller: Paco Tatum MDGlucose [Mass/Vol]109 mg/vEVyqh81-37AvtvxHarborview Medical CenterComaleda e. [facility] affairs medical center on above:Performed By: #### CBC, HEPXA, CMPX, MG, TSHX, TROPI #### [facility] [address] [place] [address] Sample Puller: Dexter Fried MD #### LIPR #### [address] [address] Sample Puller: RAHUL Porterotassium [Moles/Vol]4.2 mmol/LNormal3.7-5.3 [facility] HospitalComaleda e. [facility] affairs medical center on above:Performed By: #### CBC, HEPXA, CMPX, MG, TSHX, TROPI #### [facility] [address] [place] [address] Sample Puller: Dexter Fried MD #### LIPR #### [address] [address] Sample Puller: Paco Tatum MDSodium [Moles/Vol]135 mmol/UHztodd116-362TuaylLicking Memorial HospitalComaleda e. [facility] affairs medical center on above:Performed By: #### CBC, HEPXA, CMPX, MG, TSHX, TROPI #### [facility] [place] [address] Sample Puller: Dexter Fried MD #### LIPR #### [address] [address] Sample Puller: Paco Tatum MDUrea nitrogen [Mass/Vol]13 mg/dLNormal6-20[facility] HospitalComment on above:Performed By: #### CBC, HEPXA, CMPX, MG, TSHX, TROPI #### [facility] [address] [place] [address] Sample Puller: Dxeter Fried MD #### LIPR #### [facility] [address] [place], [place] [id number] Sample Puller: Paco Tatum [facility] with Auto Differentialon [id number] Eos #0.14MerWillapa Harbor HospitalAbsolute Immature Granulocyte0.03[facility] Parma Medical CenterAbsolute Lymph #2.57[facility] Hospitals [facility] Medical CenterAbsolute Whiteside #0.34[facility] Medical CenterBasophils (Bld) [#/Vol]0.10 10*3/uLUniversity Hospitals Parma Medical CenterBasophils/100 WBC (Bld)1 %0 - 2 %[facility] Medical CenterEosinophils/100 WBC (Bld)2 %1 - 4 %[facility] Medical CenterHematocrit (Bld) [Volume fraction]38.1 %36.3 - 47.1 %[facility] Medical CenterHemoglobin.gastrointestinal spec 1 Ql (Stl)11.8 g/dLLow11.9 - 15.1 g/dLUniversity Hospitals Parma Medical CenterImmature granulocytes/100 WBC (Bld)0 %0[facility] Interpretation and review of laboratory resultsAbnormalUniversity Hospitals Parma Medical Center Lymphocytes/100 WBC (Bld)29 %24 - 43 %[facility] HospitalH (RBC) [Entitic mass]26.5 pg25.2 - 33.5 pgAdams County HospitalHC (RBC) [Mass/Vol]31.0 g/dL28.4 - 34.8 g/dLAdams County HospitalV (RBC) [Entitic vol]85.6 fL82.6 - 102.9 fLUniversity Hospitals Parma Medical CenterMonocytes/100 WBC (Bld)4 %3 - 12 %[facility] Medical CenterNRBC Automated0.00.0 per 100 WBCUniversity Hospitals Parma Medical CenterPlatelet distribution width (Bld) [Ratio]14.2 %11.8 - 14.4 %[facility] Parma Medical CenterPlatelet mean volume (Bld) [Entitic vol]9.3 fL8.1 - 13.5 [facility] System East CampusPlatelets (Bld) [#/Vol] 377 10*3/[facility] CenterRBC (Bld) [#/Vol]4.45 10*6/uL3.95 - 5.11 m/[facility] Segmented neutrophils/100 WBC (Bld)64 %36 - 65 %[facility] Medical CenterSegs Absolute5.62 [facility] Medical CenterWBC (Bld) [#/Vol]8.8 10*3/[facility] Lafayette CountyCBC with Diffon [id number]. Basophil0.10 k/uLNormal0.00-0.20[facility] HospitalComment on above:Performed By: #### CBC, HEPXA, CMPX, MG, TSHX, TROPI #### [facility] [address] [place] [address] Sample Puller: Dexter Fried MD #### LIPR #### [address] [address] Sample Puller: Khadra Porter.Imm.Granulocyte0.03 k/uLNormal0.00-0.30[facility] HospitalComment on above:Performed By: #### CBC, HEPXA, CMPX, MG, TSHX, TROPI #### [facility] [address] [place] [address] Sample Puller: Dexter Fried MD #### LIPR #### [address] [address] Sample Puller: Khadra Porter.Neutrophil (Seg)5.62 k/uLNormal1.50-8.10 [facility] HospitalComaleda e. [facility] on above:Performed By: #### CBC, HEPXA, CMPX, MG, TSHX, TROPI #### [facility] [address] [place] [address] Sample Puller: Dexter Fried MD #### LIPR #### [address] [address] Sample Puller: Paco Tatum MDBasophils/100 WBC (Bld)1 %Normal0-2[facility] CenterComaleda e. [facility] on above:Performed By: #### CBC, HEPXA, CMPX, MG, TSHX, TROPI #### [facility] [address] [place] [address] Sample Puller: Dexter Fried MD #### LIPR #### [address] [address] Sample Puller: Paco Tatum MDEosinophils (Bld) [#/Vol]0.14 10*3/uLNormal 0.00-0.44[facility] HospitalComaleda e. [facility] on above:Performed By: #### CBC, HEPXA, CMPX, MG, TSHX, TROPI #### [facility] [address] [place] [address] Sample Puller: Dexter Fried MD #### LIPR #### [address] [address] Sample Puller: Paco Tatum MDEosinophils/100 WBC (Bld)2 %Normal1-4[facility] HospitalComaleda e[facility] on above:Performed By: #### CBC, HEPXA, CMPX, MG, TSHX, TROPI #### [facility] [address] [place] [address] Sample Puller: Dexter Fried MD #### LIPR #### [address] [address] Sample Puller: Paco Tatum MDErythrocyte distribution width (RBC) [Ratio]14.2 %Kbojrs66.8-14.4[facility] on above:Performed By: #### CBC, HEPXA, CMPX, MG, TSHX, TROPI #### [facility] [address] [place] [address] Sample Puller: Dexter Fried MD #### LIPR #### [address] [address] Sample Puller: Paco Tatum MDHematocrit (Bld) [Volume fraction]38.1 %Normal 36.3-47.1MHarborview Medical CenterComaleda e. [facility] on above:Performed By: #### CBC, HEPXA, CMPX, MG, TSHX, TROPI #### [facility] [address] [place] [address] Sample Puller: Dexter Fried MD #### LIPR #### [address] [address] Sample Puller: Paco Tatum MDHemoglobin (Bld) [Mass/Vol]11.8 g/dLLow11.9-15.1 [facility] on above:Performed By: #### CBC, HEPXA, CMPX, MG, TSHX, TROPI #### [facility] [address] [place] [address] Sample Puller: Dexter Fried MD #### LIPR #### [address] [address] Sample Puller: Paco Tatum MDImmature granulocytes/100 WBC (Bld)0 %Normal0 [facility] on above:Performed By: #### CBC, HEPXA, CMPX, MG, TSHX, TROPI #### [facility] [address] [place] [address] Sample Puller: Dexter Fried MD #### LIPR #### [address] [address] Sample Puller: Kris Portermphocytes (Bld) [#/Vol]2.57 10*3/uLNormal 1.10-3.70[facility] HospitalComaleda [facility] on above:Performed By: #### CBC, HEPXA, CMPX, MG, TSHX, TROPI #### [facility] [address] [place] [address] Sample Puller: Dexter Fried MD #### LIPR #### [address] [address] Sample Puller: Scarlett Porterhocytes/100 WBC (Bld)29 %Lwnwhw41-22LiumrLicking Memorial HospitalComaleda e. [facility] on above:Performed By: #### CBC, HEPXA, CMPX, MG, TSHX, TROPI #### [facility] [address] [place] [address] Sample Puller: Dexter Fried MD #### LIPR #### [address] [address] Sample Puller: Paco Tatum MDMCH (RBC) [Entitic mass]26.5 xxJmjhfx84.2-33.5 [facility] HospitalComaleda e[facility] on above:Performed By: #### CBC, HEPXA, CMPX, MG, TSHX, TROPI #### [facility] [address] [place] [address] Sample Puller: Dexter Fried MD #### LIPR #### [address] [address] Sample Puller: Paco Tatum MDMCHC (RBC) [Mass/Vol]31.0 g/eWEphqpu17.4-34.8 [facility] HospitalComment on above:Performed By: #### CBC, HEPXA, CMPX, MG, TSHX, TROPI #### [facility] [address] [place] [address] Sample Puller: Dexter Fried MD #### LIPR #### [address] [address] Sample Puller: OCTAVIA PorterCV (RBC) [Entitic vol]85.6 bGHytbgk14.6-102.9 [facility] HospitalComment on above:Performed By: #### CBC, HEPXA, CMPX, MG, TSHX, TROPI #### [facility] [address] [place] [address] Sample Puller: Dexter Fried MD #### LIPR #### [address] [address] Sample Puller: OCTAVIA Porteronocytes (Bld) [#/Vol]0.34 10*3/uLNormal 0.10-1.20[facility] HospitalComment on above:Performed By: #### CBC, HEPXA, CMPX, MG, TSHX, TROPI #### [facility] [address] [place] [address] Sample Puller: Dexter Fried MD #### LIPR #### [address] [address] Sample Puller: Paco Tatum MDMonocytes/100 WBC (Bld)4 %Normal3-12[facility] HospitalComment on above:Performed By: #### CBC, HEPXA, CMPX, MG, TSHX, TROPI #### [facility] [address] [place] [address] Sample Puller: Dexter Fried MD #### LIPR #### [address] [address] Sample Puller: Paco Tatum MDNeutrophil (Seg)64 %Bpbbju02-78HltitOur Lady of Mercy Hospital on above:Performed By: #### CBC, HEPXA, CMPX, MG, TSHX, TROPI #### [facility] [address] [place] [address] Sample Puller: Dexter Fried MD #### LIPR #### [address] [address] Sample Puller: Paco Tatum MDNRBC Automated0.0 per 100 WBCNormal0.0[facility] on above:Performed By: #### CBC, HEPXA, CMPX, MG, TSHX, TROPI #### [facility] [address] [place] [address] Sample Puller: Dexter Fried MD #### LIPR #### [address] [address] Sample Puller: Keysha Porter mean volume (Bld) [Entitic vol]9.3 fL Normal8.1-13.5[facility] on above:Performed By: #### CBC, HEPXA, CMPX, MG, TSHX, TROPI #### [facility] [address] [place] [address] Sample Puller: Dexter Fried MD #### LIPR #### [address] [address] Sample Puller: Dinorah Portertejocelyn (Bld) [#/Vol]377 10*3/lCKtdifw078-542 [facility] on above:Performed By: #### CBC, HEPXA, CMPX, MG, TSHX, TROPI #### [facility] [address] [place] [address] Sample Puller: Dexter Fried MD #### LIPR #### [address] [address] Sample Puller: Paco Tatum [facility] (Bld) [#/Vol]4.45 10*6/uLNormal3.95-5.11 [facility] HospitalComment on above:Performed By: #### CBC, HEPXA, CMPX, MG, TSHX, TROPI #### [facility] [address] [place] [address] Sample Puller: Dexter Fried MD #### LIPR #### [address] [address] Sample Puller: Paco Tatum MDROCKEFELLER WAR [facility]ONSTR[facility] (Bld) [#/Vol]8.8 10*3/uLNormal3.5-11.3MHarborview Medical CenterComment on above:Performed By: #### CBC, HEPXA, CMPX, MG, TSHX, TROPI #### [facility] [address] [place] [address] Sample Puller: Dexter Fried MD #### LIPR #### [address] [address] Sample Puller: ALFIE Porter CHEST PORTABLEon [id number] CHEST PORTABLE EXAMINATION: ONE XRAY VIEW OF [...] Signed by: Elmira Cisneros MD 12/05/21 Final resultNormalLouis Stokes Cleveland VA Medical Centertable chest without acute process. [facility] CONSOLIDATEDEXAMINATION: ONE XRAY VIEW OF THE CHEST 12/05/2021 3:55 pm COMPARISON: 11/30/2021 HISTORY: ORDERING SYSTEM PROVIDED HISTORY: cough Additional signs and symptoms: cough, sob and chest pain FINDINGS: The lungs are without acute focal process. No effusion or pneumothorax. The cardiomediastinal silhouette is stable. The osseous structures are intact without acute process. [facility] Elmira August MD - 12/05/2021 EXAMINATION: ONE XRAY VIEW OF THE CHEST 12/05/2021 3:55 pm COMPARISON: 11/30/2021 HISTORY: ORDERING SYSTEM PROVIDED HISTORY: cough Additional signs and symptoms: cough, sob and chest pain FINDINGS: The lungs are without acute focal process. No effusion or pneumothorax. The cardiomediastinal silhouette is stable. The osseous structures are intact without acute process. IMPRESSION: Stable chest without acute process. [employer] Phone: radiology Study observation (narrative)[employer] Phone: XR CHEST PORTABLEOrdered By: Elmira Cisneros on [id number] Phone: Prot. Electrophoresis, Uron [id number] Review:ELECTRONICALLY SIGNED. DEXTER FRIED M.D.[facility] County HospitalComment on above:Performed By: #### CBC, HEPXA, CMPX, MG, TSHX, TROPI #### [facility] [address] [place] [address] Sample Puller: Dexter Fried MD #### LIPR #### [facility] [address] [place], [place] [id number] Sample Puller: Paco Tatum MDUr.-Prot.Elect-InterSLIGHTLY ELEVATED TOTAL PROTEIN CONCENTRATION. PATTERN OBSERVED IS INCREASEDNormalMerSnoqualmie Valley HospitalComment on above:Result Comment: CONC. OF LOW MOLECULAR WEIGHT PROTEINS. PATTERN MAY BE SEEN WITH MINIMAL RENAL DYSFUNCTION OR WITH VARIOUS INFLAMMITORY/INFECTIOUS PROCESSES IN THE BODY (OVERFLOW PROTEINURIA).Performed By: #### CBC, HEPXA, CMPX, MG, TSHX, TROPI #### [facility] [address] [place] [address] Sample Puller: Dexter Fried MD #### LIPR #### [address] [address] Sample Puller: Dash Porter [id number] Coag (Bld) [Time]s Critically high23.9-33.8[facility] HospitalComment on above:Result Comment: IV Heparin Therapy Range: 62.0-94.0 TEST CONFIRMEDPerformed By: #### CBC, HEPXA, CMPX, MG, TSHX, TROPI #### [facility] [address] [place] [address] Sample Puller: Dexter Fried MD #### LIPR #### [address] [address] Sample Puller: Diego Porter Coag (Bld) [Time]25.9 oCwrwwz97.9-33.8[facility] HospitalComment on above:Result Comment: IV Heparin Therapy Range: 62.0-94.0Performed By: #### CBC, HEPXA, CMPX, MG, TSHX, TROPI #### [facility] [address] [place] [address] Sample Puller: Dexter Fried MD #### LIPR #### [address] [address] Sample Puller: Diego Porter Coag (Bld) [Time]sCritically highUniversity Hospitals Parma Medical CenterComment on above: IV Heparin Therapy Range: 62.0-94.0 TEST CONFIRMED Interpretation and review of laboratory resultsAbnormalMercy HealthMercy Health Anti-Xa, Unfractionated Heparinon [id number]-XA Unfrac Heparin0.5[facility] [facility]– Menomonee FallsCBCon 85-98-9961Mwjpljjyzxe distribution width (RBC) [Ratio] 14.8 %High11.8-14.4[facility] HospitalComment on above:Performed By: #### CBC, HEPXA, CMPX, MG, TSHX, TROPI #### [facility] [address] [place] [address] Sample Puller: Dexter Fried MD #### LIPR #### [address] [address] Sample Puller: Paco Tatum MDHematocrit (Bld) [Volume fraction]33.3 %Low 36.3-47.1MHarborview Medical CenterComment on above:Performed By: #### CBC, HEPXA, CMPX, MG, TSHX, TROPI #### [facility] [address] [place] [address] Sample Puller: Dexter Fried MD #### LIPR #### [address] [address] Sample Puller: Paco Tatum MDHemoglobin (Bld) [Mass/Vol]10.2 g/dLLow11.9-15.1 [facility] HospitalComment on above:Performed By: #### CBC, HEPXA, CMPX, MG, TSHX, TROPI #### [facility] [address] [place] [address] Sample Puller: Dexter Fried MD #### LIPR #### [address] [address] Sample Puller: OCTAVIA PorterCH (RBC) [Entitic mass]26.4 shRnppmt70.2-33.5 [facility] on above:Performed By: #### CBC, HEPXA, CMPX, MG, TSHX, TROPI #### [facility] [address] [place] [address] Sample Puller: Dexter Fried MD #### LIPR #### [address] [id number] Sample Puller: OCTAVIA PorterCHC (RBC) [Mass/Vol]30.6 g/yHYmydhl63.4-34.8 [facility] on above:Performed By: #### CBC, HEPXA, CMPX, MG, TSHX, TROPI #### [facility] [address] [place] [address] Sample Puller: Dexter Fried MD #### LIPR #### [place] [address] Sample Puller: OCTAVIA PorterCV (RBC) [Entitic vol]86.3 uDGtydmz81.6-102.9 [facility] on above:Performed By: #### CBC, HEPXA, CMPX, MG, TSHX, TROPI #### [facility] [address] [place] [address] Sample Puller: Dexter Fried MD #### LIPR #### [address] [address] Sample Puller: Paco Tatum MDNRBC Automated0.0 per 100 WBCNormal0.0[facility] on above:Performed By: #### CBC, HEPXA, CMPX, MG, TSHX, TROPI #### [facility] [address] [place] [address] Sample Puller: Dexter Fried MD #### LIPR #### [facility] [place] [address] Sample Puller: Keysha Porter mean volume (Bld) [Entitic vol]8.9 fL Normal8.1-13.5[facility] on above:Performed By: #### CBC, HEPXA, CMPX, MG, TSHX, TROPI #### [facility] [address] [place] [address] Sample Puller: Dexter Fried MD #### LIPR #### [address] [address] Sample Puller: Jason Porter (Bld) [#/Vol]314 10*3/oXOyvgst120-239 [facility] on above:Performed By: #### CBC, HEPXA, CMPX, MG, TSHX, TROPI #### [facility] [address] [place] [address] Sample Puller: Dexter Fried MD #### LIPR #### [address] [address] Sample Puller: INDER PorterBC (Bld) [#/Vol]3.86 10*6/uLLow3.95-5.11[facility] on above:Performed By: #### CBC, HEPXA, CMPX, MG, TSHX, TROPI #### [facility] [address] [place] [address] Sample Puller: Dexter Fried MD #### LIPR #### [address] [address] Sample Puller: Paco Tatum MDWBC (Bld) [#/Vol]10.0 10*3/uLNormal3.5-11.3[facility] Medical CenterComment on above:Performed By: #### CBC, HEPXA, CMPX, MG, TSHX, TROPI #### [facility] [address] [place], [place] [address] Sample Puller: Dexter Fried MD #### LIPR #### [facility] [address] [place], [place] [id number] Sample Puller: Paco Tatum MDHematocrit (Bld) [Volume fraction]33.3 %Low36.3 - 47.1 %[facility] Medical CenterHemoglobin.gastrointestinal spec 1 Ql (Stl)10.2 g/dLLow11.9 - 15.1 g/dLUniversity Hospitals Parma Medical CenterInterpretation and review of laboratory resultsAbnormal Adams County HospitalH (RBC) [Entitic mass]26.4 pg25.2 - 33.5 pgAdams County HospitalHC (RBC) [Mass/Vol]30.6 g/dL28.4 - 34.8 g/dLAdams County HospitalV (RBC) [Entitic vol]86.3 fL 82.6 - 102.9 fLUniversity Hospitals Parma Medical CenterNRBC Automated0.00.0 per 100 WBCUniversity Hospitals Parma Medical CenterPlatelet distribution width (Bld) [Ratio]14.8 %High11.8 - 14.4 %[facility] Medical CenterPlatelet mean volume (Bld) [Entitic vol]8.9 fL8.1 - 13.5 fLBrown Memorial Hospital HealthPlatelets (Bld) [#/Vol]314 10*3/uLUniversity Hospitals Parma Medical CenterRBC (Bld) [#/Vol]3.86 10*6/uLLow3.95 - 5.11 m/uL [facility] Medical CenterWBC (Bld) [#/Vol]10.0 10*3/uLSelect Medical OhioHealth Rehabilitation Hospital HealthErythrocyte distribution width (RBC) [Ratio]14.8 %High11.8-14.4[facility] Comment on above:Performed By: #### PT, TROPI, PTT, CBC #### [facility] [address] [place], [place] [address] Sample Puller: Dexter Fried MDHematocrit (Bld) [Volume fraction]33.6 %Low 36.3-47.1Muniversity hospitals beachwood medical centery Coulee Medical CenterComaleda e. [facility] on above:Performed By: #### PT, TROPI, PTT, CBC #### [facility] [address] [place] [address] Sample Puller: Dexter Fried MDHemoglobin (Bld) [Mass/Vol]10.4 g/dLLow 11.9-15.1Mer[facility] Medical CenterComment on above:Performed By: #### PT, TROPI, PTT, CBC #### [facility] [address] [place] [address] Sample Puller: OCTAVIA HerreraCH (RBC) [Entitic mass]26.7 riGktoar83.2-33.5 [facility] HospitalComaleda e. [facility] on above:Performed By: #### PT, TROPI, PTT, CBC #### [facility] [address] [place] [address] Sample Puller: AMIRA HerreraC (RBC) [Mass/Vol]31.0 g/bMJzcvxp57.4-34.8 [facility] HospitalComaleda e. [facility] on above:Performed By: #### PT, TROPI, PTT, CBC #### [facility] [address] [place] [address]. [place] [address] Sample Puller: OCTAVIA HerreraCV (RBC) [Entitic vol]86.2 xBCfhvhc37.6-102.9 [facility] HospitalComaleda e. [facility] on above:Performed By: #### PT, TROPI, PTT, CBC #### [facility] [address] [place] [address]. [place] [address] Sample Puller: JANNETH HerreraBC Automated0.0 per 100 WBCNormal0.0[facility] on above:Performed By: #### PT, TROPI, PTT, CBC #### [facility] [address] [place] [address] Sample Puller: Keysha Herrera mean volume (Bld) [Entitic vol]9.1 fL Normal8.1-13.5[facility] HospitalComaleda e. [facility] on above:Performed By: #### PT, TROPI, PTT, CBC #### [facility] [address] [place] [address] Sample Puller: Jason Herrera (Bld) [#/Vol]342 10*3/fCVslzry109-466 [facility] on above:Performed By: #### PT, TROPI, PTT, CBC #### [facility] [place] [address] Sample Puller: INDER HerreraBC (Bld) [#/Vol]3.90 10*6/uLLow3.95-5.11[facility] on above:Performed By: #### PT, TROPI, PTT, CBC #### [facility] [address] [place] [address] Sample Puller: BREEZY Herrera (Bld) [#/Vol]10.4 10*3/uLNormal3.5-11.3 [facility] on above:Performed By: #### PT, TROPI, PTT, CBC #### [facility] [address] [place] [address] Sample Puller: Dexter Fried MDHematocrit (Bld) [Volume fraction]33.6 %Low36.3 - 47.1 %[facility] Medical CenterHemoglobin.gastrointestinal spec 1 Ql (Stl)10.4 g/dLLow11.9 - 15.1 g/dLUniversity Hospitals Parma Medical CenterInterpretation and review of laboratory resultsAbnormal [facility] County HospitalH (RBC) [Entitic mass]26.7 pg25.2 - 33.5 pgAdams County HospitalHC (RBC) [Mass/Vol]31.0 g/dL28.4 - 34.8 g/dLAdams County HospitalV (RBC) [Entitic vol]86.2 fL 82.6 - 102.9 fLUniversity Hospitals Parma Medical CenterNRBC Automated0.00.0 per 100 WBCUniversity Hospitals Parma Medical CenterPlatelet distribution width (Bld) [Ratio]14.8 %High11.8 - 14.4 %[facility] Medical CenterPlatelet mean volume (Bld) [Entitic vol]9.1 fL8.1 - 13.5 fLUniversity Hospitals Parma Medical CenterPlatelets (Bld) [#/Vol]342 10*3/uLUniversity Hospitals Parma Medical CenterRBC (Bld) [#/Vol]3.90 10*6/uLLow3.95 - 5.11 m/uL [facility] Medical CenterWBC (Bld) [#/Vol]10.4 10*3/uLSelect Medical OhioHealth Rehabilitation Hospital HealthCT CHEST PULMONARY EMBOLISM W CONTRASTon [id number] CHEST PULMONARY EMBOLISM W CONTRAST EXAMINATION: CTA [...] were called by Dr. Ernie Gamino to ANNEALING [employer] OPERATOR Bandar Vaughan on 11/30/2021 at 10:54 p.m. hours. RECOMMENDATIONS: 1.3 cm incidental right thyroid nodule with heterogeneous and enlarged thyroid. Recommend thyroid US. Reference: J Am Sukhjinder Radiol. 2015 Oct;12(2): 143-50 Interpreted by: Ernie Gamino DO Signed by: Ernie Gamino DO 11/30/21 Final resultNormalMerSnoqualmie Valley HospitalComp Metabolic Pr/rfx MGon 12-01-2021 (cont.)NormalMerSnoqualmie Valley HospitalComment on above:Result Comment: Average GFR for 20-29 years old: 116 mL/min/1.73sq m Chronic Kidney Disease: <60 mL/min/1.73sq m Kidney failure: <15 mL/min/1.73sq m eGFR calculated using average adult body mass. Additional eGFR calculator available at: http://www.[employer].com/multiple_crcl_2012.htmPerformed By: #### CBC, HEPXA, CMPX, MG, TSHX, TROPI #### [facility] [address] [place] [address] Sample Puller: Dexter Fried MD #### LIPR #### [address] [address] Sample Puller: Paco Tatum MDAlbumin [Mass/Vol]3.4 g/dLLow3.5-5.2MHarborview Medical CenterComaleda e. [facility] on above:Performed By: #### CBC, HEPXA, CMPX, MG, TSHX, TROPI #### [facility] [address] [place] [address] Sample Puller: Dexter Fried MD #### LIPR #### [address] [address] Sample Puller: Angela Porterline Phos93 U/OLkguqd86-107HvrhoLicking Memorial HospitalComaleda e. [facility] center on above:Performed By: #### CBC, HEPXA, CMPX, MG, TSHX, TROPI #### [facility] [address] [place] [address] Sample Puller: Dexter Fried MD #### LIPR #### [address] [address] Sample Puller: Paco Tatum MDALT [Catalytic activity/Vol]28 U/LNormal5-33 [facility] HospitalComaleda e. [facility] on above:Performed By: #### CBC, HEPXA, CMPX, MG, TSHX, TROPI #### [facility] [address] [place] [address] Sample Puller: Dexter Fried MD #### LIPR #### [address] [address] Sample Puller: Paco Tatum MDAnimateo gap [Moles/Vol]7 mmol/LLow9-17[facility] HospitalComaleda e. [facility] on above:Performed By: #### CBC, HEPXA, CMPX, MG, TSHX, TROPI #### [facility] [address] [place] [address] Sample Puller: Dexter Fried MD #### LIPR #### [address] [address] Sample Puller: Paco Tatum MDAST [Catalytic activity/Vol]16 U/LNormal<32L[facility] HospitalComment on above:Performed By: #### CBC, HEPXA, CMPX, MG, TSHX, TROPI #### [facility] [address] [place] [address] Sample Puller: Dexter Fried MD #### LIPR #### [address] [address] Sample Puller: Paco Tatum MDBilirubin [Mass/Vol]0.18 mg/dLLow0.3-1.2[facility] Medical CenterComment on above:Performed By: #### CBC, HEPXA, CMPX, MG, TSHX, TROPI #### [facility] [address] [place] [address] Sample Puller: Dexter Fried MD #### LIPR #### [address] [address] Sample Puller: Paco Tatum MDBUN/CRE Zayjp50Ohnr2-12DwvsvLicking Memorial Hospital Comment on above:Performed By: #### CBC, HEPXA, CMPX, MG, TSHX, TROPI #### [facility] [address] [place] [address] Sample Puller: Dexter Fried MD #### LIPR #### [address] [address] Sample Puller: CELESTE Porteralcium [Mass/Vol]8.5 mg/dLLow8.6-10.4[facility] HospitalComment on above:Performed By: #### CBC, HEPXA, CMPX, MG, TSHX, TROPI #### [facility] [address] [place] [address] Sample Puller: Dexter Fried MD #### LIPR #### [address] [address] Sample Puller: CELESTE Porterhloride [Moles/Vol]105 mmol/SZkrbjp09-776DlqybLicking Memorial HospitalComment on above:Performed By: #### CBC, HEPXA, CMPX, MG, TSHX, TROPI #### [facility] [address] [place] [address] Sample Puller: Dexter Fried MD #### LIPR #### [address] [address] Sample Puller: Paco Ttaum MDCO2 [Moles/Vol]25 mmol/XHobswp25-95CsbcxLicking Memorial HospitalComaleda e. [facility] center on above:Performed By: #### CBC, HEPXA, CMPX, MG, TSHX, TROPI #### [facility] [address] [place] [address] Sample Puller: Dexter Fried MD #### LIPR #### [address] [address] Sample Puller: CELESTE Porterreatinine [Mass/Vol]0.61 mg/dLNormal0.50-0.90 [facility] HospitalComaleda e. [facility] center on above:Performed By: #### CBC, HEPXA, CMPX, MG, TSHX, TROPI #### [facility] [address] [place] [address] Sample Puller: Dexter Fried MD #### LIPR #### [address] [address] Sample Puller: Paco Tatum MDGFR, Amer>60Normal>60MerSnoqualmie Valley HospitalComaleda e. [facility] on above:Performed By: #### CBC, HEPXA, CMPX, MG, TSHX, TROPI #### [facility] [address] [place] [address] Sample Puller: Dexter Fried MD #### LIPR #### [address] [address] Sample Puller: MARTHA Porter,non Amer>60Normal>60[facility] CenterComaleda [facility] on above:Performed By: #### CBC, HEPXA, CMPX, MG, TSHX, TROPI #### [facility] [address] [place] [address] Sample Puller: Dexter Fried MD #### LIPR #### [address] [address] Sample Puller: Paco Tatum MDGlucose [Mass/Vol]90 mg/gLLvgjqr34-76Ceaxf[address] [place], [place] [address] on above:Performed By: #### CBC, HEPXA, CMPX, MG, TSHX, TROPI #### [facility] [address] [place] [address] Sample Puller: Dexter Fried MD #### LIPR #### [address] [address] Sample Puller: RAHUL Porterotassium [Moles/Vol]4.0 mmol/LNormal3.7-5.3 [facility] HospitalCom[facility] on above:Performed By: #### CBC, HEPXA, CMPX, MG, TSHX, TROPI #### [facility] [place] [address] Sample Puller: Dexter Fried MD #### LIPR #### [address] [address] Sample Puller: RAHUL Porterrotein [Mass/Vol]6.3 g/dLLow6.4-8.3MProtestant Hospital on above:Performed By: #### CBC, HEPXA, CMPX, MG, TSHX, TROPI #### [facility] [address] [place] [address] Sample Puller: Dexter Fried MD #### LIPR #### [address] [address] Sample Puller: KELLY Porterodium [Moles/Vol]137 mmol/WIfqmua207-444UjrapLicking Memorial HospitalComaleda e. [facility] on above:Performed By: #### CBC, HEPXA, CMPX, MG, TSHX, TROPI #### [facility] [address] [place] [address] Sample Puller: Dexter Fried MD #### LIPR #### [address] [address] Sample Puller: Paco Tatum MDUrea nitrogen [Mass/Vol]13 mg/dLNormal6-20[facility] on above:Performed By: #### CBC, HEPXA, CMPX, MG, TSHX, TROPI #### [facility] [address] [place] [address] Sample Puller: Dexter Fried MD #### LIPR #### [address] [address] Sample Puller: CELESTE Porteromprehensive Metabolic Panel w/ Reflex to MGon 20-11-6236Tarltdz [Mass/Vol]3.4 g/dLLow3.5 - 5.2 g/dLMercy HealthALP (Bld) [Catalytic activity/Vol]93 U/L35 - 104 U/LMercy HealthALT [Catalytic activity/Vol]28 U/L5 - 33 U/LMercy HealthAnion gap [Moles/Vol]7 mmol/LLow9 - 17 mmol/LMercy HealthAST [Catalytic activity/Vol]16 U/L<32Mercy HealthBilirubin [Mass/Vol]0.18 mg/dLLow0.3 - 1.2 mg/dLMercy HealthCalcium [Mass/Vol]8.5 mg/dLLow 8.6 - 10.4 mg/dLMercy HealthChloride [Moles/Vol]105 mmol/L98 - 107 mmol/LMercy HealthCO2 [Moles/Vol]25 mmol/L20 - 31 mmol/LMercy HealthCreatinine [Mass/Vol] 0.61 mg/dL0.50 - 0.90 mg/dLMemorial Health Systemcy HealthFree PSA/Total PSA [Mass fraction]6.3 g/dLLow6.4 - 8.3 g/dLMercy HealthGFR >60>60 mL/minMercy Health GFR Non->60>60 mL/minMercy HealthGFR/1.73 sq M.predicted MDRD (S/P/Bld) [Vol rate/Area][facility] CenterComment on above:Average GFR for 20-29 years old: 116 mL/min/1.73sq m Chronic Kidney Disease: <60 mL/min/1.73sq m Kidney failure: <15 mL/min/1.73sq m eGFR calculated using average adult body mass. Additional eGFR calculator available at: http://www.[employer].Posto7/multiple_crcl_2011.htm Glucose [Mass/Vol]90 mg/dL70 - 99 mg/dLMemorial Health Systemcy HealthInterpretation and review of laboratory resultsAbnormalMer HealthPotassium [Moles/Vol]4.0 mmol/L3.7 - 5.3 mmol/LMercy HealthSodium [Moles/Vol]137 mmol/L135 - 144 mmol/LMercy HealthUrea nitrogen (BldV) [Mass/Vol]13 mg/dL6 - 20 mg/dLMercy HealthUrea nitrogen/Creatinine (Bld) [Mass ratio]21HighBrown Memorial Hospital HealthEchocardiogram 2D W M-Modeon 03-40-2613EULYGMERCY [facility] Transthoracic Echocardiography Report (TTE) Patient Name MILLIE Date of Study 12/01/2021 SHIRA Date of 1995 Gender Female Age 26 year(s) Race Room Number 2042 Height: 61 inch, 154.94 cm Corporate ID [id number] Weight: 279 pounds, 126.6 kg # Patient Acct [id number] BSA: 2.18 m^2 BMI: 52.72 # kg/m^2 MR # [id number] Armament Mechanic Ashley Mendez Interpreting Physician Mata Mar Fellow Referring Nurse Practitioner Interpreting Referring Physician Camelia Medina Fellow Type of Study TTE procedure:2D Echocardiogram, M-Mode, Doppler, Color Doppler. Procedure Date Date: 12/01/2021 Start: 02:19 PM Study Location: [facility] Technical Quality: Adequate visualization Indications:Pulmonary [...] velocity:0.13 m/sMHPN Mata Stapleton MD - 12/01/[address] [facility] Transthoracic Echocardiography Report (TTE) Patient Name MILLIE Date of Study 12/01/2021 SHIRA Date of 1995 Gender Female Age 26 year(s) Race Room Number 2042 Height: 61 inch, 154.94 cm Corporate ID [id number] Weight: 279 pounds, 126.6 kg # Patient Acct [id number] BSA: 2.18 m^2 BMI: 52.72 # kg/m^2 MR # [id number] Armament Mechanic Ashley Mendez Interpreting Physician Mata Mar Fellow Referring Nurse Practitioner Interpreting Referring Physician Camelia Medina Fellow Type of Study TTE procedure:2D Echocardiogram, M-Mode, Doppler, Color Doppler. Procedure Date Date: 12/01/2021 Start: 02:19 PM Study Location: [facility] Technical Quality: Adequate visualization Indications:Pulmonary [...] velocity:0.09 m/s Lateral Wall E' velocity:0.13 m/sMercy Nortis Work Phone: echocardiogram 2D W M-ModeOrdered By: Mata Mar on [id number] [facility] Work Phone: Heparin Anti-Xaon 19-31-6895Bveyzyx Anti-Xa0.50 IU/L Normal0.30-0.70[facility] HospitalComment on above:Performed By: #### CBC, HEPXA, CMPX, MG, TSHX, TROPI #### [facility] [address] [place], [place] [id number] Sample Puller: Dexter Fried MD #### LIPR #### [facility] [employer] [address] [place] [address] [phone] Sample Puller: Paco Tatum MDLipid Profileon 54-52-7312Iysavloexvo [Mass/Vol] 217 mg/dLHigh<200MerSnoqualmie Valley HospitalComment on above:Result Comment: Cholesterol Guidelines: <200 Desirable 200-240 Borderline >240 UndesirablePerformed By: #### CBC, HEPXA, CMPX, MG, TSHX, TROPI #### [facility] [address] [place], [place] [id number] Sample Puller: Dexter Fried MD #### LIPR #### [address] [address] Sample Puller: CELESTE Porterholesterol in HDL [Mass/Vol]49 mg/dLNormal>40 [facility] on above:Result Comment: HDL Guidelines: <40 Undesirable 40-59 Borderline >59 DesirablePerformed By: #### CBC, HEPXA, CMPX, MG, TSHX, TROPI #### [facility] [address] [place] [address] Sample Puller: Dexter Fried MD #### LIPR #### [address] [address] Sample Puller: CELESTE Porterholesterol in LDL [Mass/Vol]112 mg/dLNormal 0-130[facility] CenterComaleda [facility] on above:Result Comment: LDL Guidelines: <100 Desirable 100-129 Near to/above Desirable 130-159 Borderline >159 Undesirable Direct (measured) LDL and calculated LDL are not interchangeable tests.Performed By: #### CBC, HEPXA, CMPX, MG, TSHX, TROPI #### [facility] [address] [place] [address] Sample Puller: Dexter Fried MD #### LIPR #### [address] [address] Sample Puller: Cherry Porterstsusan.total/Cholesterol in HDL [Mass ratio]4.4 {ratio}Normal<5[facility] CenterComaleda e. [facility] on above:Performed By: #### CBC, HEPXA, CMPX, MG, TSHX, TROPI #### [facility] [address] [place] [address] Sample Puller: Dexter Fried MD #### LIPR #### [facility] [employer] [address] [place] [address] [phone] Sample Puller: Paco Tatum MDTriglyceride [Mass/Vol]281 mg/dLHigh<150MerSnoqualmie Valley HospitalComment on above:Result Comment: Triglyceride Guidelines: <150 Desirable 150-199 Borderline 200-499 High >499 Very high Based on AHA Guidelines for fasting triglyceride, June 2012.Performed By: #### CBC, HEPXA, CMPX, MG, TSHX, TROPI #### [facility] [address] [place], [place] [id number] Sample Puller: Dexter Fried MD #### LIPR #### [facility] [address] [place], [place] [phone] Sample Puller: Paco Tatum MDLipid panel - fastingon 91-38-4302Tkabxuhzevy [Mass/Vol]217 mg/dLHigh<200Mercy HealthComment on above: Cholesterol Guidelines: <200 Desirable 200-240 Borderline >240 Undesirable Cholesterol in HDL [Mass/Vol]49 mg/dL>40Mer HealthComment on above: HDL Guidelines: <40 Undesirable 40-59 Borderline >59 Desirable Cholesterol in LDL [Mass/Vol]112 mg/dL0 - 130 mg/dLUniversity Hospitals Parma Medical CenterComment on above: LDL Guidelines: <100 Desirable 100-129 Near to/above Desirable 130-159 Borderline >159 Undesirable Direct (measured) LDL and calculated LDL are not interchangeable tests. Cholesterol.total/Cholesterol in HDL [Mass ratio]4.4 {ratio}<5[facility] Interpretation and review of laboratory resultsAbnormalMercy HealthTriglyceride [Mass/Vol]281 mg/dLHigh<150Mercy HealthComment on above: Triglyceride Guidelines: <150 Desirable 150-199 Borderline 200-499 High >499 Very high Based on AHA Guidelines for fasting triglyceride, June 2012. [facility] Medical CenterMagnesiumon 66-51-4152Shofglzks [Mass/Vol]1.9 mg/dLNormal1.6-2.6 [facility] HospitalComment on above:Performed By: #### CBC, HEPXA, CMPX, MG, TSHX, TROPI #### [facility] [address] [place] [address] Sample Puller: Dexter Fried MD #### LIPR #### [address] [phone] Sample Puller: Jani Portergnesium [Mass/Vol]1.9 mg/dL1.6 - 2.6 mg/dL [facility] CenterNo Panel Informationon 58-77-4803PtozxUpland Hills Health Glucose Fingerstickon 33-15-2823Aqexfdk [Mass/Vol]91 mg/dL65 - 105 mg/dLAscension [facility] 19-79-3081ONV Coag (PPP) [Relative time]1.3 {INR}NormalLicking Memorial HospitalComment on above:Result Comment: Non-therapeutic Range: INR = 0.9-1.2 Therapeutic Range: Moderate Anticoagulant Intensity: INR = 2.0-3.0 High Anticoagulant Intensity: INR = 2.5-3.5Performed By: #### CBC, HEPXA, CMPX, MG, TSHX, TROPI #### [facility] [address] [place] [address] Sample Puller: Dexter Fried MD #### LIPR #### [address] [address] Sample Puller: NAT Porter Coag (PPP) [Time]16.0 sHigh11.5-14.2Mer[facility] Coulee Medical CenterComment on above:Performed By: #### CBC, HEPXA, CMPX, MG, TSHX, TROPI #### [facility] [place] [address] Sample Puller: Dexter Fried MD #### LIPR #### [address] [address] Sample Puller: Paco Tatum MDINR Coag (PPP) [Relative time]1.1 {INR}Normal [facility] HospitalComment on above:Result Comment: Non-therapeutic Range: INR = 0.9-1.2 Therapeutic Range: Moderate Anticoagulant Intensity: INR = 2.0-3.0 High Anticoagulant Intensity: INR = 2.5-3.5Performed By: #### CBC, HEPXA, CMPX, MG, TSHX, TROPI #### [facility] [address] [place] [address] Sample Puller: Dexter Fried MD #### LIPR #### [address] [address] Sample Puller: NAT Porter Coag (PPP) [Time]14.0 jBcfljn95.5-14.2MHarborview Medical CenterComaleda e. [facility] on above:Performed By: #### CBC, HEPXA, CMPX, MG, TSHX, TROPI #### [facility] [address] [place] [address] Sample Puller: Dexter Fried MD #### LIPR #### [address] [address] Sample Puller: Dariel Porter. Electrophoresis, Uron 97-04-7646Zrkto Protein Conc.15 mg/dLNormalLicking Memorial HospitalComaleda e. [facility] on above:Performed By: #### CBC, HEPXA, CMPX, MG, TSHX, TROPI #### [facility] [address] [place] [address] Sample Puller: Dexter Fried MD #### LIPR #### [address] [address] Sample Puller: RAHUL Porterrotein / creatinine ratio, urineon 12-01-2021 Creatinine, Ur96.1 mg/dL28.0 - 217.0 mg/dLMercy HealthProtein (U) [Mass/Vol]15 mg/dLMer HealthComment on above:No normal range established.Urine Total Protein Creatinine Ratio0.16[facility] [facility] Menomonee FallsProtein,Tot,Sylvester Uron 60-92-0853Jadrozpjcu [Mass/Vol]96.1 mg/tESxyaky10.0-217.0[facility] Comment on above:Performed By: #### CBC, HEPXA, CMPX, MG, TSHX, TROPI #### [facility] [place] [address] Sample Puller: Dexter Fried MD #### LIPR #### [address] [phone] Sample Puller: Paco Tatum MDTot Prot. Conc.15 mg/dLNoCincinnati Children's Hospital Medical CenterComment on above:Result Comment: No normal range established.Performed By: #### CBC, HEPXA, CMPX, MG, TSHX, TROPI #### [facility] [address] [place] [address] Sample Puller: Dexter Fried MD #### LIPR #### [address] [address] Sample Puller: Paco Tatum MDTP/Cre Ratio0.71Jjgotp2.00-0.20[facility] HospitalComment on above:Performed By: #### CBC, HEPXA, CMPX, MG, TSHX, TROPI #### [facility] [address] [place] [address] Sample Puller: Dexter Fried MD #### LIPR #### [address] [address] Sample Puller: Dariel Porterime-INRon 05-65-1437MUV Coag (Bld) [Relative time]1.3 {INR}[facility] Medical CenterComaleda e. [facility] on above: Non-therapeutic Range: INR = 0.9-1.2 Therapeutic Range: Moderate Anticoagulant Intensity: INR = 2.0-3.0 High Anticoagulant Intensity: INR = 2.5-3.5 Interpretation and review of laboratory resultsAbParma Community General HospitalPT Coag (PPP) [Time]16 [facility] w/reflex to FT4on 64-86-9566NWW Qn2.20 m[IU]/LNormal0.30-5.00[facility] HospitalComment on above:Performed By: #### CBC, HEPXA, CMPX, MG, TSHX, TROPI #### [facility] [address] [place] [address] Sample Puller: Dexter Fried MD #### LIPR #### [facility] CenterTriventus [facility] [place], [place] [phone] Sample Puller: Paco Tatum MDHARBORVIEW MEDICAL CENTER Qn2.20 m[IU]/[facility] Hospitaloponinon 33-64-7826Ovwwfycp, High Sens<2Clbfdd7-82YbjmvLicking Memorial HospitalComment on above:Result Comment: High Sensitivity Troponin values cannot be compared with other Troponin methodologies. Patients with high levels of Biotin oral intake (i.e >5mg/day) may have falsely decreased Troponin levels. Samples collected within 8 hours of biotin intake may require additional information for diagnosis.Performed By: #### CBC, HEPXA, CMPX, MG, TSHX, TROPI #### [facility] [address] [place] [address] Sample Puller: Dexter Fried MD #### LIPR #### [employer] [address] [place], [place] [phone] Sample Puller: Yuri Porter, High Sensitivity<60 - 14 ng/[facility] on above: High Sensitivity Troponin values cannot be compared with other Troponin methodologies. Patients with high levels of Biotin oral intake (i.e >5mg/day) may have falsely decreased Troponin levels. Samples collected within 8 hours of biotin intake may require additional information for diagnosis. Troponin, High Sens<9Twdydc7-79Eonku [facility] on above:Result Comment: High Sensitivity Troponin values cannot be compared with other Troponin methodologies. Patients with high levels of Biotin oral intake (i.e >5mg/day) may have falsely decreased Troponin levels. Samples collected within 8 hours of biotin intake may require additional information for diagnosis.Performed By: #### CBC, HEPXA, CMPX, MG, TSHX, TROPI #### [facility] [address] [place] [address] Sample Puller: Dexter Fried MD #### LIPR #### [address] [id number] Sample Puller: Alhaji Porternin, High Sensitivity<60 - 14 ng/LMFirelands Regional Medical Center on above: High Sensitivity Troponin values cannot be compared with other Troponin methodologies. Patients with high levels of Biotin oral intake (i.e >5mg/day) may have falsely decreased Troponin levels. Samples collected within 8 hours of biotin intake may require additional information for diagnosis. [facility] Hospitaloponin, High Sens<0Pkngsa5-75OcpkzOur Lady of Mercy Hospital on above:Result Comment: High Sensitivity Troponin values cannot be compared with other Troponin methodologies. Patients with high levels of Biotin oral intake (i.e >5mg/day) may have falsely decreased Troponin levels. Samples collected within 8 hours of biotin intake may require additional information for diagnosis.Performed By: #### CBC, HEPXA, CMPX, MG, TSHX, TROPI #### [facility] [address] [place] [address] Sample Puller: Dexter Fried MD #### LIPR #### [address] [address] Sample Puller: Dash Porter 91-01-3705oXXF Coag (Bld) [Time]25.9 s [facility] on above: IV Heparin Therapy Range: 62.0-94.0 [facility] Medical CenterBrain Natri. Peptideon 56-37-5868Vsakhnxxtcv peptide B (Bld) [Mass/Vol]31 pg/mLNormal<300[facility] HospitalComment on above:Result Comment: An age-independent cutoff point of 300 pg/ml has a 98% negative predictive value excluding acute heart failure.Performed By: #### CBC, HEPXA, CMPX, MG, TSHX, TROPI #### [facility] [address] [place] [address] Sample Puller: Dexter Fried MD #### LIPR #### [facility] [address] [place], [place] [id number] Sample Puller: Paco Tatum MDBrain Natriuretic Peptideon 11-30-2021 Natriuretic peptide B (Bld) [Mass/Vol]31 pg/mL<300[facility] Medical CenterComment on above: An age-independent cutoff point of 300 pg/ml has a 98% negative predictive value excluding acute heart failure. CBC with Auto Differentialon 33-80-8522Pouutpyy Eos #0.22MerWillapa Harbor HospitalAbsolute Immature Granulocyte0.11[facility] Medical CenterAbsolute Lymph #2.99MercInova Women's HospitalAbsolute Whiteside #0.61[facility] Medical CenterBasophils (Bld) [#/Vol]0.08 10*3/uLUniversity Hospitals Parma Medical Center Basophils/100 WBC (Bld)1 %0 - 2 %[facility] CenterEosinophils/100 WBC (Bld)2 %1 - 4 % [facility] Medical CenterHematocrit (Bld) [Volume fraction]35.0 %Low36.3 - 47.1 %[facility] Hemoglobin.gastrointestinal spec 1 Ql (Stl)10.8 g/dLLow11.9 - 15.1 g/dLUniversity Hospitals Parma Medical CenterImmature granulocytes/100 WBC (Bld)1 %Irrs2SpwmyUniversity Hospitals Parma Medical CenterInterpretation and review of laboratory resultsAbnormalUniversity Hospitals Parma Medical CenterLymphocytes/100 WBC (Bld)29 %24 - 43 %[facility] (RBC) [Entitic mass]26.6 pg25.2 - 33.5 pgHolzer Medical Center – Jackson (RBC) [Mass/Vol]30.9 g/dL28.4 - 34.8 g/dLUniversity Hospitals Parma Medical CenterMCV (RBC) [Entitic vol]86.2 fL82.6 - 102.9 fLUniversity Hospitals Parma Medical CenterMonocytes/100 WBC (Bld)6 %3 - 12 %[facility] Medical CenterNRBC Automated0.00.0 per 100 WBCUniversity Hospitals Parma Medical CenterPlatelet distribution width (Bld) [Ratio] 14.8 %High11.8 - 14.4 %[facility] Medical CenterPlatelet mean volume (Bld) [Entitic vol]9.1 fL8.1 - 13.5 fLUniversity Hospitals Parma Medical CenterPlatelets (Bld) [#/Vol]351 10*3/[facility]'s Medical CenterRBC (Bld) [#/Vol]4.06 10*6/uL3.95 - 5.11 m/[facility] CenterC (Bld) [#/Vol] ANISOCYTOSIS PRESENTUniversity Hospitals Parma Medical CenterSegmented neutrophils/100 WBC (Bld)61 %36 - 65 % [facility] Medical CenterSegs Absolute6.17[facility] Medical CenterWBC (Bld) [#/Vol]10.2 10*3/[facility] Lafayette CountyCBC with Diffon 75-88-1227Pfm. Basophil0.08 k/uLNormal 0.00-0.20[facility] HospitalComment on above:Performed By: #### CBC, HEPXA, CMPX, MG, TSHX, TROPI #### [facility] [address] [place] [address] Sample Puller: Dexter Fried MD #### LIPR #### [facility] [address] [place], [place] 2586[address] Sample Puller: Khadra Porter.Imm.Granulocyte0.11 k/uLNormal0.00-0.30[facility] HospitalComment on above:Performed By: #### CBC, HEPXA, CMPX, MG, TSHX, TROPI #### [facility] [address] [place], [place] [phone] Sample Puller: Dexter Fried MD #### LIPR #### [address] [address] Sample Puller: Khadra Porter.Neutrophil (Seg)6.17 k/uLNormal1.50-8.10 [facility] on above:Performed By: #### CBC, HEPXA, CMPX, MG, TSHX, TROPI #### [facility] [address] [place] [address] Sample Puller: Dexter Fried MD #### LIPR #### [address] [address] Sample Puller: Paco Tatum MDBasophils/100 WBC (Bld)1 %Normal0-2M[facility] medical centery [facility] on above:Performed By: #### CBC, HEPXA, CMPX, MG, TSHX, TROPI #### [facility] [address] [place] [address] Sample Puller: Dexter Fried MD #### LIPR #### [address] [address] Sample Puller: MARQUITA Porterosinophils (Bld) [#/Vol]0.22 10*3/uLNormal 0.00-0.44[facility] on above:Performed By: #### CBC, HEPXA, CMPX, MG, TSHX, TROPI #### [facility] [address] [place] [address] Sample Puller: Dexter Fried MD #### LIPR #### [address] [address] Sample Puller: MARQUITA Porterosinophils/100 WBC (Bld)2 %Normal1-4Mercy Macedonia HospitalComment on above:Performed By: #### CBC, HEPXA, CMPX, MG, TSHX, TROPI #### [facility] [address] [place] [address] Sample Puller: Dexter Fried MD #### LIPR #### [address] [address] Sample Puller: Paco Tatum MDErythrocyte distribution width (RBC) [Ratio]14.8 %High11.8-14.4[facility] HospitalComment on above:Performed By: #### CBC, HEPXA, CMPX, MG, TSHX, TROPI #### [facility] [address] [place] [address] Sample Puller: Dexter Fried MD #### LIPR #### [address] [address] Sample Puller: Paco Tatum MDHematocrit (Bld) [Volume fraction]35.0 %Low 36.3-47.1M[facility] hospitals beach[facility] medical centery Coulee Medical CenterComment on above:Performed By: #### CBC, HEPXA, CMPX, MG, TSHX, TROPI #### [facility] [address] [place] [address] Sample Puller: Dexter Fried MD #### LIPR #### [address] [address] Sample Puller: Paco Tatum MDHemoglobin (Bld) [Mass/Vol]10.8 g/dLLow11.9-15.1 [facility] HospitalComaleda e. [facility] on above:Performed By: #### CBC, HEPXA, CMPX, MG, TSHX, TROPI #### [facility] [address] [place] [address] Sample Puller: Dexter Fried MD #### LIPR #### [address] [address] Sample Puller: Leeroy Portermature granulocytes/100 WBC (Bld)1 %Fbjn5NxrddLicking Memorial HospitalComaleda e. [facility] on above:Performed By: #### CBC, HEPXA, CMPX, MG, TSHX, TROPI #### [facility] [address] [place] [address] Sample Puller: Dexter Fried MD #### LIPR #### [address] [address] Sample Puller: Paco Tatum MDLymphocytes (Bld) [#/Vol]2.99 10*3/uLNormal 1.10-3.70[facility] HospitalComaleda e. [facility] on above:Performed By: #### CBC, HEPXA, CMPX, MG, TSHX, TROPI #### [facility] [address] [place] [address] Sample Puller: Dexter Fried MD #### LIPR #### [address] [address] Sample Puller: Paco Tatum MDLymphocytes/100 WBC (Bld)29 %Lpyhhn04-76SpuuiLicking Memorial HospitalComaleda e. [facility] on above:Performed By: #### CBC, HEPXA, CMPX, MG, TSHX, TROPI #### [facility] [address] [place] [address] Sample Puller: Dexter Fried MD #### LIPR #### [address] [address] Sample Puller: OCTAVIA PorterCH (RBC) [Entitic mass]26.6 upVwjgzt60.2-33.5 [facility] HospitalComaleda e. [facility] on above:Performed By: #### CBC, HEPXA, CMPX, MG, TSHX, TROPI #### [facility] [address] [place] [address] Sample Puller: Dexter Fried MD #### LIPR #### [address] [address] Sample Puller: OCTAVIA PorterCHC (RBC) [Mass/Vol]30.9 g/nLRvsbft40.4-34.8 [facility] HospitalComment on above:Performed By: #### CBC, HEPXA, CMPX, MG, TSHX, TROPI #### [facility] [address] [place] [address] Sample Puller: Dexter Fried MD #### LIPR #### [address] [address] Sample Puller: OCTAVIA PorterCV (RBC) [Entitic vol]86.2 ePCgleyo94.6-102.9 [facility] HospitalComaleda [facility] on above:Performed By: #### CBC, HEPXA, CMPX, MG, TSHX, TROPI #### [facility] [address] [place] [address] Sample Puller: Dexter Fried MD #### LIPR #### [address] [address] Sample Puller: OCTAVIA Porteronocytes (Bld) [#/Vol]0.61 10*3/uLNormal 0.10-1.20[facility] on above:Performed By: #### CBC, HEPXA, CMPX, MG, TSHX, TROPI #### [facility] [address] [place] [address] Sample Puller: Dexter Fried MD #### LIPR #### [address] [address] Sample Puller: OCTAVIA Porteronocytes/100 WBC (Bld)6 %Normal3-12[facility]Com[facility] on above:Performed By: #### CBC, HEPXA, CMPX, MG, TSHX, TROPI #### [facility] [address] [place] [address] Sample Puller: Dexter Fried MD #### LIPR #### [address] [address] Sample Puller: Paco Tatum MDNeutrophil (Seg)61 %Ttuofn63-70BtkijLicking Memorial HospitalComment on above:Performed By: #### CBC, HEPXA, CMPX, MG, TSHX, TROPI #### [facility] [address] [place] [address] Sample Puller: Dexter Fried MD #### LIPR #### [address] [address] Sample Puller: Paco Tatum MDNRBC Automated0.0 per 100 WBCNormal0.0[facility] HospitalCom[facility]a [facility] on above:Performed By: #### CBC, HEPXA, CMPX, MG, TSHX, TROPI #### [facility] [address] [place] [address] Sample Puller: Dexter Fried MD #### LIPR #### [address] [address] Sample Puller: RAHUL Porterlatelet mean volume (Bld) [Entitic vol]9.1 fL Normal8.1-13.5[facility] HospitalCom[facility]a [facility] on above:Performed By: #### CBC, HEPXA, CMPX, MG, TSHX, TROPI #### [facility] [address] [place] [address] Sample Puller: Dexter Fried MD #### LIPR #### [address] [address] Sample Puller: Jason Porter (Bld) [#/Vol]351 10*3/fNSrchsd641-044 [facility] on above:Performed By: #### CBC, HEPXA, CMPX, MG, TSHX, TROPI #### [facility] [address] [place] [address] Sample Puller: Dexter Fried MD #### LIPR #### [address] [address] Sample Puller: PATRICIA Porter (Bld) [#/Vol]4.06 10*6/uLNormal3.95-5.11 [facility] on above:Performed By: #### CBC, HEPXA, CMPX, MG, TSHX, TROPI #### [facility] [address] [place] [address] Sample Puller: Dexter Fried MD #### LIPR #### [address] [address] Sample Puller: PATRICIA Porter morphology finding Nom (Bld)ANISOCYTOSIS PRESENTNormalMerYakima Valley Memorial Hospital on above:Performed By: #### CBC, HEPXA, CMPX, MG, TSHX, TROPI #### [facility] [address] [place] [address] Sample Puller: Dexter Fried MD #### LIPR #### [address] [address] Sample Puller: Paco Tatum MDWBC (Bld) [#/Vol]10.2 10*3/uLNormal3.5-11.3[facility]lee Medical CenterComment on above:Performed By: #### CBC, HEPXA, CMPX, MG, TSHX, TROPI #### [facility] [address] [place] [address] Sample Puller: Dexter Fried MD #### LIPR #### [facility] [address] [place] [address] Sample Puller: Paco Tatum, MDCT CHEST PULMONARY EMBOLISM W CONTRASTon . Acute embolus, within a distal segmental and proximal subsegmental branches, right lower lobe pulmonary artery, without evidence of RV strain 2. Cardiomegaly 3. 13 mm thyroid nodule, within the medial portion of the right lobe extending into the isthmus. Recommendation as discussed below 4. Critical results were called by Dr. Ernie Gamino to ANNEALING [employer] OPERATOR Bandar Vaughan on 11/30/2021 at 10:54 p.m. hours. RECOMMENDATIONS: 1.3 cm incidental right thyroid nodule with heterogeneous and enlarged thyroid. Recommend thyroid US. Reference: J Am Sukhjinder Radiol. 2015 Oct;12(2): 143-50 [facility] RIS CONSOLIDATEDEXAMINATION: CTA OF THE CHEST 11/30/2021 [...] No acute bone or soft tissue abnormality. [facility] Ernie Cooney, DO - 11/30/2021 EXAMINATION: CTA [...] J Am Sukhjinder Radiol. 2015 Oct;12(2): 143-50 [facility] Work Phone: [facility] Work Phone: radiology Study observation (narrative)[facility] Phone: comp Metabolic Pr/rfx MGon 11-30-2021(cont.)Normal [facility] HospitalComment on above:Result Comment: Average GFR for 20-29 years old: 116 mL/min/1.73sq m Chronic Kidney Disease: <60 mL/min/1.73sq m Kidney failure: <15 mL/min/1.73sq m eGFR calculated using average adult body mass. Additional eGFR calculator available at: http://www.[employer].Posto7/multiple_crcl_2012.htmPerformed By: #### CBC, HEPXA, CMPX, MG, TSHX, TROPI #### [facility] [address] [place] [address] Sample Puller: Dexter Fried MD #### LIPR #### [facility] [address] [place] [address] Sample Puller: Paco Tatum MDAlbumin [Mass/Vol]3.7 g/dLNormal3.5-5.2MHarborview Medical CenterComaleda e. [facility] on above:Performed By: #### CBC, HEPXA, CMPX, MG, TSHX, TROPI #### [facility] [address] [place] [address] Sample Puller: Dexter Fried MD #### LIPR #### [address] [address] Sample Puller: Angela Porterline Lpvb153 U/XTprzfm47-509QbymeLicking Memorial HospitalComaleda e. [facility] on above:Performed By: #### CBC, HEPXA, CMPX, MG, TSHX, TROPI #### [facility] [address] [place] [address] Sample Puller: Dexter Fried MD #### LIPR #### [address] [address] Sample Puller: Paco Tatum MDALT [Catalytic activity/Vol]31 U/LNormal5-33 [facility] HospitalCom[facility]a [facility] on above:Performed By: #### CBC, HEPXA, CMPX, MG, TSHX, TROPI #### [facility] [address] [place] [address] Sample Puller: Dexter Fried MD #### LIPR #### [address] [address] Sample Puller: Flynn Porter gap [Moles/Vol]10 mmol/LNormal9-17[facility] on above:Performed By: #### CBC, HEPXA, CMPX, MG, TSHX, TROPI #### [facility] [address] [place] [address] Sample Puller: Dexter Fried MD #### LIPR #### [address] [address] Sample Puller: Paco Tatum MDAST [Catalytic activity/Vol]15 U/LNormal<32MerSnoqualmie Valley HospitalComment on above:Performed By: #### CBC, HEPXA, CMPX, MG, TSHX, TROPI #### [facility] [address] [place] [address] Sample Puller: Dexter Fried MD #### LIPR #### [address] [address] Sample Puller: Paco Tatum MDBilirubin [Mass/Vol]0.21 mg/dLLow0.3-1.2Mer[facility]lee Medical CenterComment on above:Performed By: #### CBC, HEPXA, CMPX, MG, TSHX, TROPI #### [facility] [address] [place] [address] Sample Puller: Dexter Fried MD #### LIPR #### [address] [address] Sample Puller: Paco Tatum MDBUN/CRE Prabz22Imav9-87PogkbLicking Memorial Hospital Comment on above:Performed By: #### CBC, HEPXA, CMPX, MG, TSHX, TROPI #### [facility] [address] [place] [address] Sample Puller: Dexter Fried MD #### LIPR #### [address] [address] Sample Puller: CELESTE Porteralcium [Mass/Vol]9.0 mg/dLNormal8.6-10.4[facility] HospitalComment on above:Performed By: #### CBC, HEPXA, CMPX, MG, TSHX, TROPI #### [facility] [address] [place] [address] Sample Puller: Dexter Fried MD #### LIPR #### [address] [address] Sample Puller: CELESTE Porterhloride [Moles/Vol]101 mmol/BLoudum32-207YubmlLicking Memorial HospitalComaleda e. [facility] on above:Performed By: #### CBC, HEPXA, CMPX, MG, TSHX, TROPI #### [facility] [address] [place] [address] Sample Puller: Dexter Fried MD #### LIPR #### [address] [address] Sample Puller: CELESTE PorterO2 [Moles/Vol]23 mmol/WMvhnpr32-75SxrssLicking Memorial HospitalComaleda e. [facility] on above:Performed By: #### CBC, HEPXA, CMPX, MG, TSHX, TROPI #### [facility] [address] [place] [address] Sample Puller: Dexter Fried MD #### LIPR #### [address] [address] Sample Puller: CELESTE Porterreatinine [Mass/Vol]0.55 mg/dLNormal0.50-0.90 [facility] HospitalComaleda [facility] on above:Performed By: #### CBC, HEPXA, CMPX, MG, TSHX, TROPI #### [facility] [address] [place] [address] Sample Puller: Dexter Fried MD #### LIPR #### [address] [address] Sample Puller: Paco Tatum MDGFR, Amer>60Normal>60MerYakima Valley Memorial Hospital on above:Performed By: #### CBC, HEPXA, CMPX, MG, TSHX, TROPI #### [facility] [address] [place] [address] Sample Puller: Dexter Fried MD #### LIPR #### [address] [address] Sample Puller: Paco Tatum MDGFR,non Amer>60Normal>60[facility] on above:Performed By: #### CBC, HEPXA, CMPX, MG, TSHX, TROPI #### [facility] [address] [place] [address] Sample Puller: Dexter Fried MD #### LIPR #### [address] [address] Sample Puller: Paco Tatum MDGlucose [Mass/Vol]101 mg/fJTofi05-07Xjskb[address] [place], [place] [address] on above:Performed By: #### CBC, HEPXA, CMPX, MG, TSHX, TROPI #### [facility] [address] [place] [address] Sample Puller: Dexter Fried MD #### LIPR #### [address] [address] Sample Puller: RAHUL Porterotassium [Moles/Vol]4.0 mmol/LNormal3.7-5.3 [facility] on above:Performed By: #### CBC, HEPXA, CMPX, MG, TSHX, TROPI #### [facility] [address] [place] [address] Sample Puller: Dexter Fried MD #### LIPR #### [address] [address] Sample Puller: RAHUL Porterrotein [Mass/Vol]6.9 g/dLNormal6.4-8.3MHarborview Medical CenterComment on above:Performed By: #### CBC, HEPXA, CMPX, MG, TSHX, TROPI #### [facility] [address] [place] [address] Sample Puller: Dexter Fried MD #### LIPR #### [address] [address] Sample Puller: KELLY Porterodium [Moles/Vol]134 mmol/GYua644-049KflbgLicking Memorial HospitalComment on above:Performed By: #### CBC, HEPXA, CMPX, MG, TSHX, TROPI #### [facility] [address] [place] [address] Sample Puller: Dexter Fried MD #### LIPR #### [address] [address] Sample Puller: Paco Tatum MDUrea nitrogen [Mass/Vol]16 mg/dLNormal6-20[facility] HospitalComment on above:Performed By: #### CBC, HEPXA, CMPX, MG, TSHX, TROPI #### [facility] [address] [place] [address] Sample Puller: Dexter Fried MD #### LIPR #### [address] [address] Sample Puller: CELESTE Porteromprehensive Metabolic Panel w/ Reflex to MGon [id number] [Mass/Vol]3.7 g/dL3.5 - 5.2 g/dLMercy HealthALP (Bld) [Catalytic activity/Vol]102 U/L35 - 104 U/LMercy HealthALT [Catalytic activity/Vol]31 U/L5 - 33 U/LMercy HealthAnion gap [Moles/Vol]10 mmol/L9 - 17 mmol/LMercy HealthAST [Catalytic activity/Vol]15 U/L<32Mercy HealthBilirubin [Mass/Vol]0.21 mg/dLLow0.3 - 1.2 mg/dLMercy HealthCalcium [Mass/Vol]9.0 mg/dL8.6 - 10.4 mg/dLMercy HealthChloride [Moles/Vol]101 mmol/L98 - 107 mmol/LMercy HealthCO2 [Moles/Vol]23 mmol/L20 - 31 mmol/LMercy HealthCreatinine [Mass/Vol] 0.55 mg/dL0.50 - 0.90 mg/dLMercy HealthFree PSA/Total PSA [Mass fraction]6.9 g/dL6.4 - 8.3 g/dLMercy HealthGFR >60>60 mL/minMercy HealthGFR Non->60>60 mL/minMercy HealthGFR/1.73 sq M.predicted MDRD (S/P/Bld) [Vol rate/Area][facility] CenterComment on above:Average GFR for 20-29 years old: 116 mL/min/1.73sq m Chronic Kidney Disease: <60 mL/min/1.73sq m Kidney failure: <15 mL/min/1.73sq m eGFR calculated using average adult body mass. Additional eGFR calculator available at: http://www.[employer].Posto7/multiple_crcl_2011.htm Glucose [Mass/Vol]101 mg/rAVhwf20 - 99 mg/dLMercy HealthPotassium [Moles/Vol]4.0 mmol/L3.7 - 5.3 mmol/LMercy HealthSodium [Moles/Vol]134 mmol/SEwa024 - 144 mmol/LMercy HealthUrea nitrogen (BldV) [Mass/Vol]16 mg/dL6 - 20 mg/dLMercy HealthUrea nitrogen/Creatinine (Bld) [Mass ratio]29HighMercy HealthD-Dimer Test on 17-36-1779N-Dimer Test1.73 mg/L FEUHigh0.00-0.59[facility] Comment on above:Result Comment: When combined [...] CBC, HEPXA, CMPX, MG, TSHX, TROPI #### [facility] [address] [place], [place] [address] Sample Puller: Dexter Fried MD #### LIPR #### [facility] [address] [place], [place] 69[address]808 Sample Puller: Paco Tatum, PRASAD-Dimer, Quantitativeon 09-17-0038U-Dimer, Quant 1.73HighUniversity Hospitals Parma Medical CenterComment on above: When combined with a low [...] distal DVT. Interpretation and review of laboratory resultsAbnormalFroedtert Menomonee Falls Hospital[place] Lactate Dehydrogenaseon [id number] [Catalytic activity/Vol]171 U/LNormal 135-214[facility] HospitalComment on above:Performed By: #### CBC, HEPXA, CMPX, MG, TSHX, TROPI #### [facility] [address] [place] [address] Sample Puller: Dexter Fried MD #### LIPR #### [address] [address] Sample Puller: Paco Tatum MDLD171 U/L135 - 214 U/LMercy HealthMagnesiumon 56-79-1896Eekvbovyg [Mass/Vol]1.9 mg/dLNormal1.6-2.6Muniversity hospitals beachwood medical centery [facility] Comment on above:Performed By: #### CBC, HEPXA, CMPX, MG, TSHX, TROPI #### [facility] [address] [place] [address] Sample Puller: Dexter Fried MD #### LIPR #### [address] [address] Sample Puller: Jani Portergnesium [Mass/Vol]1.9 mg/dL1.6 - 2.6 mg/dL [facility] Medical CenterMicroscopic Urinalysison 11-30-2021-[facility] Medical CenterBacteria, UARARE AbnormalNoneMercy HealthEpithelial Cells UA0 TO 2Merc HealthInterpretation and review of laboratory resultsAbnoOhio Valley Surgical HospitalRBC, UA2 TO 5[facility] Medical CenterWBC, UA 2 TO 5[facility] HealthNo Panel Informationon [id number] and review of laboratory resultsAbDepartment of Veterans Affairs [facility] Prot. Electrophoresis, Uron [id number] of Specimen.CLEAN CATCH URINENoal [facility] HospitalComment on above:Performed By: #### CBC, HEPXA, CMPX, MG, TSHX, TROPI #### [facility] [address] [place] [address] Sample Puller: Dexter Fried MD #### LIPR #### [facility] [address] [place], [place] 16315[address] Sample Puller: RAHUL Portergallup indian medical centerime-INRon [id number] Coag (Bld) [Relative time]1.1 {INR}[facility] on above: Non-therapeutic Range: INR = 0.9-1.2 Therapeutic Range: Moderate Anticoagulant Intensity: INR = 2.0-3.0 High Anticoagulant Intensity: INR = 2.5-3.5 PT Coag (PPP) [Time]14 sMercy [facility] HealthTroponinon 70-58-4042Ewnvsujt, High Sens<1Tzgris1-34GxabwLicking Memorial HospitalComaleda e. [facility] on above:Result Comment: High Sensitivity Troponin values cannot be compared with other Troponin methodologies. Patients with high levels of Biotin oral intake (i.e >5mg/day) may have falsely decreased Troponin levels. Samples collected within 8 hours of biotin intake may require additional information for diagnosis.Performed By: #### CBC, HEPXA, CMPX, MG, TSHX, TROPI #### [facility] [address] [place] [address] Sample Puller: Dexter Fried MD #### LIPR #### [address] [address] Sample Puller: Yuri Porter, High Sensitivity<60 - 14 ng/LMercy St. Rita'S HospitalComment on above: High Sensitivity Troponin values cannot be compared with other Troponin methodologies. Patients with high levels of Biotin oral intake (i.e >5mg/day) may have falsely decreased Troponin levels. Samples collected within 8 hours of biotin intake may require additional information for diagnosis. [facility] HealthJennifer, High Sensitivity<60 - 14 ng/LMercy St[address] Rita'S HospitalComment on above: High Sensitivity Troponin values cannot be compared with other Troponin methodologies. Patients with high levels of Biotin oral intake (i.e >5mg/day) may have falsely decreased Troponin levels. Samples collected within 8 hours of biotin intake may require additional information for diagnosis. UA w/Reflex Cultureon [id number], SemiQt,UrNegativeNormalNEGMercy Coulee Medical CenterComment on above:Performed By: #### CBC, HEPXA, CMPX, MG, TSHX, TROPI #### [facility] [address] [place] [address] Sample Puller: Dexter Fried MD #### LIPR #### [address] [address] Sample Puller: Gerber Porter, Urine3+AbnormalNEGMercy [facility] Medical Center Comment on above:Performed By: #### CBC, HEPXA, CMPX, MG, TSHX, TROPI #### [facility] [address] [place] [address] Sample Puller: Dexter Fried MD #### LIPR #### [address] [address] Sample Puller: Nenita Porter (U)SLIGHTLY CLOUDYAbnormalCLEARMercy Macedonia HospitalComment on above:Performed By: #### CBC, HEPXA, CMPX, MG, TSHX, TROPI #### [facility] [address] [place] [address] Sample Puller: Dexter Fried MD #### LIPR #### [address] [address] Sample Puller: CELESTE Porterolor (U)YellowNormalYELMerSnoqualmie Valley Hospital Comment on above:Performed By: #### CBC, HEPXA, CMPX, MG, TSHX, TROPI #### [facility] [address] [place] [address] Sample Puller: Dexter Fried MD #### LIPR #### [address] [address] Sample Puller: Paco Tatum MDGlucose Ql (U)NegativeNormalNEGLicking Memorial HospitalComment on above:Performed By: #### CBC, HEPXA, CMPX, MG, TSHX, TROPI #### [facility] [address] [place] [address] Sample Puller: Dexter Fried MD #### LIPR #### [address] [address] Sample Puller: Paco Tatum MDKetones Ql (U)NegativeNormalNEGLicking Memorial HospitalComment on above:Performed By: #### CBC, HEPXA, CMPX, MG, TSHX, TROPI #### [facility] [address] [place] [address] Sample Puller: Dexter Fried MD #### LIPR #### [address] [address] Sample Puller: Paco Tatum MDLeukocyte esterase Test strip Ql (U)SMALL AbnormalNEGMercy Coulee Medical CenterComment on above:Performed By: #### CBC, HEPXA, CMPX, MG, TSHX, TROPI #### [facility] [address] [place] [address] Sample Puller: Dexter Fried MD #### LIPR #### [address] [address] Sample Puller: Paco Tatum MDNitrite,UrNegativeNormalNEGLicking Memorial HospitalComment on above:Performed By: #### CBC, HEPXA, CMPX, MG, TSHX, TROPI #### [facility] [address] [place] [address] Sample Puller: Dexter Fried MD #### LIPR #### [address] [address] Sample Puller: Paco Tatum [facility],Ur6.9Cskzcl6.0-8.0[facility] Comment on above:Performed By: #### CBC, HEPXA, CMPX, MG, TSHX, TROPI #### [facility] [address] [place] [address] Sample Puller: Dexter Fried MD #### LIPR #### [address] [address] Sample Puller: RAHUL Portermorristown medical center Ql (U)NegativeNormalNEGMerSnoqualmie Valley HospitalComment on above:Performed By: #### CBC, HEPXA, CMPX, MG, TSHX, TROPI #### [facility] [address] [place] [address] Sample Puller: Dexter Fried MD #### LIPR #### [address] [place] [address] Sample Puller: KELLY Porterpec. [place],Ur1.119Ctlh3.005-1.030[facility] on above:Performed By: #### CBC, HEPXA, CMPX, MG, TSHX, TROPI #### [facility] [address] [place] [address] Sample Puller: Dexter Fried MD #### LIPR #### [address] [address] Sample Puller: Paco Tatum MDUrobilinogen,UrNormalNormalNORMOur [facility] of [facility] on above:Performed By: #### CBC, HEPXA, CMPX, MG, TSHX, TROPI #### [facility] [address] [place] [address] Sample Puller: Dexter Fried MD #### LIPR #### [address] [address] Sample Puller: Paco Tatum MDUric Acidon 72-63-0363Plecm [Mass/Vol]8.0 mg/dL High2.4-5.7[facility] on above:Performed By: #### CBC, HEPXA, CMPX, MG, TSHX, TROPI #### [facility] [address] [place] [address] Sample Puller: Dexter Fried MD #### LIPR #### [address] [address] Sample Puller: Paco Tatum MDUrate [Mass/Vol]8.0 mg/dLHigh2.4 - 5.7 mg/dL [facility] Medical CenterUrinalysis with Reflex to Cultureon [id number] Urine NegativeNEGATIVEUniversity Hospitals Parma Medical CenterColor, UAYellowYellowMercy HealthGlucose, UrNegative NEGATIVEMercy HealthInterpretation and review of laboratory resultsAbnormalMercy HealthKetones Ql (U)NegativeNEGATIVEMercy HealthLeukocyte esterase Test strip Ql (U)SMALLAbnormalNEGATIVEMercy HealthNitrite, UrineNegativeNEGATIVEMercy HealthpH, UA6.0Mercy HealthProtein, UANegativeNEGATIVEMercy HealthSpecific [place], UA1.035HighMercy HealthTurbidity UASLIGHTLY CLOUDYAbnormalClearMercy HealthUrine Hgb3+AbnormalNEGATIVEMercy HealthUrobilinogen, UrineNormalNormal [facility] HealthUrinalysis,Microon 11-30-2021-----NormalLicking Memorial HospitalComment on above:Performed By: #### CBC, HEPXA, CMPX, MG, TSHX, TROPI #### [facility] [address] [place] [address] Sample Puller: Dexter Fried MD #### LIPR #### [address] [id number] Sample Puller: Paco Tatum MDBacarloseriaRARETrinity Health System Comment on above:Performed By: #### CBC, HEPXA, CMPX, MG, TSHX, TROPI #### [facility] [address] [place] [address] [phone] Sample Puller: Dexter Fried MD #### LIPR #### [address] [address] Sample Puller: Paco Tatum MDEpithelial cells LM Ql (Urine sed)0 TO 2Normal 0-5L[facility] HospitalComment on above:Performed By: #### CBC, HEPXA, CMPX, MG, TSHX, TROPI #### [facility] [address] [place], [place] [id number] Sample Puller: Dexter Fried MD #### LIPR #### [facility] [address] [place] [address] Sample Puller: Mary Porter RBC's2 TO 4Ltnsrb8-0Rjccj [facility] CenterComaleda e. [facility] on above:Performed By: #### CBC, HEPXA, CMPX, MG, TSHX, TROPI #### [facility] [place] [address] Sample Puller: Dexter Fried MD #### LIPR #### [facility] [address] [place] [address] Sample Puller: Mary Porter WBC's2 TO 9Itffts2-2ZajwbLicking Memorial HospitalComaleda e. [facility] on above:Performed By: #### CBC, HEPXA, CMPX, MG, TSHX, TROPI #### [facility] [address] [place] [address] Sample Puller: Dexter Fried MD #### LIPR #### [address] [address] Sample Puller: ALFIE Porter CHEST PORTABLEon [id number] CHEST PORTABLE EXAMINATION: ONE XRAY VIEW OF [...] Signed by: Ernie Gamino DO 11/30/21 Final resultNormalLicking Memorial Hospital1. Cardiomegaly, without evidence of CHF MHPN [...] distinct. No acute osseous abnormality is present. Ernie Berrios, DO - 11/30/2021 EXAMINATION: ONE XRAY VIEW [...] IMPRESSION: 1. Cardiomegaly, without evidence of CHF [employer] Work Phone: radiology Study observation (narrative)[employer] Phone: xr CHEST PORTABLEOrdered By: Ernie Gamino on [id number] Work Phone: cbc with Auto Differentialon [id number] Eos # 0.23[facility] Health SystemTake Me Home TaxiAbsolute Immature Granulocyte0.13[facility] SystemTake Me Home TaxiAbsolute Lymph # 1.98[facility] SystemTake Me Home TaxiAbsolute Whiteside #0.51[facility] SystemTake Me Home TaxiBasophils (Bld) [#/Vol]0.06 10*3/uLMemorial Health SystemTake Me Home TaxiBasophils/100 WBC (Bld)1 %0 - 2 %[facility] CenterONStorEosinophils/100 WBC (Bld)3 %1 - 4 %[facility] CenterONStorHematocrit (Bld) [Volume fraction]28.9 %Low36.3 - 47.1 %[facility] NortisHemoglobin.gastrointestinal spec 1 Ql (Stl)8.9 g/dLLow11.9 - 15.1 g/dLBrown Memorial Hospital NortisImmature granulocytes/100 WBC (Bld)2 %Ywqv7AycvdUniversity Hospitals Parma Medical Center Interpretation and review of laboratory resultsAbnormalUniversity Hospitals Parma Medical Center Lymphocytes/100 WBC (Bld)23 %Low24 - 43 %[facility] HospitalH (RBC) [Entitic mass] 26.5 pg25.2 - 33.5 pgAdams County HospitalHC (RBC) [Mass/Vol]30.8 g/dL28.4 - 34.8 g/dL [facility] HospitalV (RBC) [Entitic vol]86.0 fL82.6 - 102.9 fLUniversity Hospitals Parma Medical Center Monocytes/100 WBC (Bld)6 %3 - 12 %[facility] Medical CenterNRBC Automated0.00.0 per 100 WBC [facility] Medical CenterPlatelet distribution width (Bld) [Ratio]14.8 %High11.8 - 14.4 % [facility] Medical CenterPlatelet mean volume (Bld) [Entitic vol]10.3 fL8.1 - 13.5 fLUniversity Hospitals Parma Medical CenterPlatelets (Bld) [#/Vol]236 10*3/[facility] CenterRBC (Bld) [#/Vol]3.36 10*6/uLLow3.95 - 5.11 m/[facility] Medical CenterRBC (Bld) [#/Vol]ANISOCYTOSIS PRESENTUniversity Hospitals Parma Medical CenterSegmented neutrophils/100 WBC (Bld)65 %36 - 65 %[facility] Medical CenterSegs Absolute 5.77[facility] Medical CenterWBC (Bld) [#/Vol]8.7 10*3/[facility] Lafayette CountyCBC with Diffon 08-07-9328Xdd. Basophil0.06 k/uLNormal0.00-0.20[facility] John Medical CenterComment on above:Performed By: #### DENG MERRILL, URI #### [facility] CenterTrivent[facility] [address] [place], [place] [address] Sample Puller: Khadra Porter.Imm.Granulocyte0.13 k/uLNormal0.00-0.30[facility] John Medical CenterComment on above:Performed By: #### DENG MERRILL, URI #### [facility] [address] [place] [address] Sample Puller: Khadra Porter.Neutrophil (Seg)5.77 k/uLNormal1.50-8.[address] John Medical CenterComment on above:Performed By: #### DENG MERRILL, URI #### [facility] CenterT[facility] [address] [place] [address] Sample Puller: Paco Tatum MDBasophils/100 WBC (Bld)1 %Normal0-2MLos Angeles Community HospitalComment on above:Performed By: #### CDP, CP, URI #### [facility] [address] [place] [address] Sample Puller: Paco Tatum MDEosinophils (Bld) [#/Vol]0.23 10*3/uLNormal 0.00-0.44[facility] John Medical CenterComment on above:Performed By: #### GARFIELD, CP, URI #### [facility] [address] [place] [address] Sample Puller: MARQUITA Porterosinophils/100 WBC (Bld)3 %Normal1-4[facility] John Medical CenterComment on above:Performed By: #### GARFIELD, CP, URI #### [facility] [address] [place] [address] Sample Puller: Paco Tatum MDErythrocyte distribution width (RBC) [Ratio]14.8 %High11.8-14.4[facility] John Medical CenterComment on above:Performed By: #### GARFIELD, CP, URI #### [facility] [address] [place] [address] Sample Puller: Paco Tatum MDHematocrit (Bld) [Volume fraction]28.9 %Low 36.3-47.1MLos Angeles Community HospitalComment on above:Performed By: #### CDP, CP, URI #### [facility] [address] [place] [address] Sample Puller: Paco Tatum MDHemoglobin (Bld) [Mass/Vol]8.9 g/dLLow11.9-15.[address] John Medical CenterComment on above:Performed By: #### CDP, CP, URI #### [facility] [address] [place] [address] Sample Puller: Leeroy Portermature granulocytes/100 WBC (Bld)2 %Pdwv1FkfjmUniversity Hospitals St. John Medical CenterComment on above:Performed By: #### DENG MERRILL, URI #### [facility] [address] [place] [address] Sample Puller: Paco Tatum MDLymphocytes (Bld) [#/Vol]1.98 10*3/uLNormal 1.10-3.70[facility] John Medical CenterComment on above:Performed By: #### DENG MERRILL, URI #### [address] [address] Sample Puller: Kris Portermphocytes/100 WBC (Bld)23 %Wbv15-61IuiraUniversity Hospitals St. John Medical CenterComment on above:Performed By: #### DENG MERRILL, URI #### [address] [address] Sample Puller: OCTAVIA PorterCH (RBC) [Entitic mass]26.5 ihLkqkwb45.2-33.[address] John Medical CenterComment on above:Performed By: #### DENG MERRILL, URI #### [address] [address] Sample Puller: OCTAVIA PorterCHC (RBC) [Mass/Vol]30.8 g/vQZxpckt87.4-34.[address] John Medical CenterComment on above:Performed By: #### DENG MERRILL, URI #### [address] [address] Sample Puller: OCTAVIA PorterCV (RBC) [Entitic vol]86.0 oBHhvgdd34.6-102.[address] John Medical CenterComment on above:Performed By: #### DENG MERRILL, URI #### [facility] [address] [place] [address] Sample Puller: Paco Tatum MDMonocytes (Bld) [#/Vol]0.51 10*3/uLNormal 0.10-1.20[facility] John Medical CenterComment on above:Performed By: #### GARFIELD, CP, URI #### [facility] [address] [place] [address] Sample Puller: OCTAVIA Porteronocytes/100 WBC (Bld)6 %Normal3-12[facility] John Medical CenterComment on above:Performed By: #### GARFIELD CP, URI #### [address] [address] Sample Puller: Paco Tatum MDNeutrophil (Seg)65 %Ybmohz45-64PzhwjUniversity Hospitals St. John Medical CenterComment on above:Performed By: #### GARFIELD, CP, URI #### [address] [address] Sample Puller: Paco Tatum MDNRBC Automated0.0 per [address] John Medical CenterComment on above:Performed By: #### GARFIELD CP, URI #### [address] [address] Sample Puller: Dinorah Portertelet mean volume (Bld) [Entitic vol]10.3 fL Normal8.1-13.5[facility] John Medical CenterComment on above:Performed By: #### GARFIELD, CP, URI #### [address] [address] Sample Puller: Paco Tatum MDPlatelets (Bld) [#/Vol]236 10*3/vWJwmzkv813-[address] John Medical CenterComment on above:Performed By: #### CDP, CP, URI #### [facility] [address] [place] [address] Sample Puller: PATRICIA Porter (Bld) [#/Vol]3.36 10*6/uLLow3.95-5.11[facility] John Medical CenterComment on above:Performed By: #### CDP, CP, URI #### [facility] [address] [place] [address] Sample Puller: PATRICIA Porter morphology finding Nom (Bld)ANISOCYTOSIS PRESENTNormalUniversity Hospitals St. John Medical CenterComment on above:Performed By: #### CDP, CP, URI #### [facility] [address] [place] [address] Sample Puller: BREEZY Porter (Bld) [#/Vol]8.7 10*3/uLNormal3.5-11.3Muniversity hospitals beachwood medical centery [facility] Community HospitalComment on above:Performed By: #### CDP, CP, URI #### [facility] [address] [place] [address] Sample Puller: GURPREET Porter-19, Rapidon 07-63-6130DNIK-CoV-2 (COVID- 19) RNA MYNOR+probe Ql (Unsp spec)Not detectedNot [facility] Allen HospitalComment on above: Rapid NAAT: The specimen [...] management decisions. Fact sheet for Healthcare Providers: https://www.fda.gov/media/122663/download Fact sheet for Patients: https://www.fda.gov/media/106787/download Methodology: Isothermal Nucleic Acid Amplification Specimen Description.NASOPHARYNGEAL SWABFroedtert Menomonee Falls Hospital– [place]e FallsCT CHEST PULMONARY EMBOLISM W CONTRASTon [id number] CHEST PULMONARY EMBOLISM W CONTRAST EXAMINATION: CTA [...] Signed by: Alok San MD 11/26/21 Final resultNoMarietta Osteopathic ClinicMotion degraded exam. No evidence for central pulmonary [...] No acute bone or soft tissue abnormality. [facility] Alok Saleem MD - 11/26/2021 EXAMINATION: CTA [...] atelectasis in the lung bases. No consolidation. [employer] Phone: radiology Study observation (narrative)[employer] Phone: cT CHEST PULMONARY EMBOLISM W CONTRASTOrdered By: Alok San on 11-74-1664Fwn[facility] Work Phone: Comp Metabolic Profon 11-26-2021(cont.)NormalUniversity Hospitals St. John Medical CenterComment on above:Result Comment: Average GFR for 20-29 years old: 116 mL/min/1.73sq m Chronic Kidney Disease: <60 mL/min/1.73sq m Kidney failure: <15 mL/min/1.73sq m eGFR calculated using average adult body mass. Additional eGFR calculator available at: http://www.[employer]/multiple_crcl_2011.htmPerformed By: #### DENG MERRILL, URI #### [facility] [address] [place] [address] Sample Puller: Paco Tatum MDAlbumin [Mass/Vol]3.3 g/dLLow3.5-5.2MLos Angeles Community HospitalComment on above:Performed By: #### DENG MERRILL, URI #### [facility] [address] [place] [address] Sample Puller: Paco Tatum MDAlbumin/Glob Ratio1.5Fxmtwt1.0-2.5[facility] John Medical CenterComment on above:Performed By: #### GARFIELD CP, URI #### [facility] [address] [place] [address] Sample Puller: Clovis Porterkaline Yhfk290 U/TXekk42-072WabpdUniversity Hospitals St. John Medical CenterComment on above:Performed By: #### GARFIELD CP, URI #### [facility] [address] [place] [address] Sample Puller: Paco Tatum MDALT [Catalytic activity/Vol]44 U/LHigh5-33[facility] John Medical CenterComment on above:Performed By: #### CDP, CP, URI #### [facility] [address] [place] [address] Sample Puller: Paco Tatum MDAnion gap [Moles/Vol]14 mmol/LNormal9-17[facility] John Medical CenterComment on above:Performed By: #### DENG MERRILL, URI #### [facility] [address] [place] [address] Sample Puller: Paco Tatum MDAST [Catalytic activity/Vol]26 U/LNormal<32[facility] John Medical CenterComment on above:Performed By: #### DENG MERRILL, URI #### [facility] [address] [place] [address] Sample Puller: Paco Tatum MDBilirubin [Mass/Vol]0.19 mg/dLLow0.3-1.2MLos Angeles Community HospitalComment on above:Performed By: #### DENG MERRILL, URI #### [facility] [address] [place] [address] Sample Puller: CELESTE Porteralcium [Mass/Vol]8.3 mg/dLLow8.6-10.4[facility] John Medical CenterComment on above:Performed By: #### DENG MERRILL, URI #### [facility] [address] [place] [address] Sample Puller: CELESTE Porterhloride [Moles/Vol]102 mmol/NVrwifh91-487IeryaUniversity Hospitals St. John Medical CenterComment on above:Performed By: #### DENG MERRILL, URI #### [facility] [address] [place] [address] Sample Puller: Paco Tatum MDCO2 [Moles/Vol]21 mmol/ISkxdax78-81XdahrUniversity Hospitals St. John Medical CenterComment on above:Performed By: #### DENG MERRILL, URI #### [facility] [address] [place] [address] Sample Puller: CELESTE Porterreatinine [Mass/Vol]0.32 mg/dLLow0.50-0.90[facility] John Medical CenterComment on above:Performed By: #### DENG MERRILL, URI #### [facility] [address] [place] [address] Sample Puller: Paco Tatum MDGFR, Amer>60Normal>60MerCorcoran District HospitalComment on above:Performed By: #### DENG MERRILL, URI #### [facility] [address] [place] [address] Sample Puller: Paco Tatum MDGFR,non Amer>60Normal>60[facility] Medical CenterComment on above:Performed By: #### DENG MERRILL, URI #### [facility] [address] [place] [address] Sample Puller: Paco Tatum MDGlucose [Mass/Vol]98 mg/qSQlbnxa30-35FaulfLos Angeles Community HospitalComment on above:Performed By: #### DENG MERRILL, URI #### [place] [address] Sample Puller: Paco Tatum MDPotassium [Moles/Vol]3.7 mmol/LNormal3.7-5.[address] [facility] Medical CenterComment on above:Performed By: #### DENG MERRILL, URI #### [address] [address] Sample Puller: Paco Tatum MDProtein [Mass/Vol]6.2 g/dLLow6.4-8.3MLos Angeles Community HospitalComment on above:Performed By: #### DENG MERRILL, URI #### [facility] [address] [place] [address] Sample Puller: Paco Tatum MDSodium [Moles/Vol]137 mmol/VSqozuw469-404MtubyUniversity Hospitals St. John Medical CenterComment on above:Performed By: #### DENG MERRILL, URI #### [facility] [address] [place], [place] [address] Sample Puller: Paco Tatum MDUrea nitrogen [Mass/Vol]7 mg/dLNormal6-20[facility] John Medical CenterComment on above:Performed By: #### GARFIELD, CP, URI #### [facility] CenterData [facility] [address] [place], [place] [address] Sample Puller: CELESTE Porteromprehensive Metabolic Panelon 11-26-2021 Albumin [Mass/Vol]3.3 g/dLLow3.5 - 5.2 g/dLBrown Memorial Hospital HealthAlbumin/Globulin [Mass ratio]1.1 {ratio}[facility] HealthALP (Bld) [Catalytic activity/Vol]105 U/LHigh35 - 104 U/LMercy HealthALT [Catalytic activity/Vol]44 U/LHigh5 - 33 U/LMercy Health Anion gap [Moles/Vol]14 mmol/L9 - 17 mmol/LMercy HealthAST [Catalytic activity/Vol]26 U/L<32[facility] HealthBilirubin [Mass/Vol]0.19 mg/dLLow0.3 - 1.2 mg/dLBrown Memorial Hospital HealthCalcium [Mass/Vol]8.3 mg/dLLow8.6 - 10.4 mg/dLUniversity Hospitals Par[facility] Center Chloride [Moles/Vol]102 mmol/L98 - 107 mmol/LMercy HealthCO2 [Moles/Vol]21 mmol/L20 - 31 mmol/LMercy HealthCreatinine [Mass/Vol]0.32 mg/dLLow0.50 - 0.90 mg/dLUniversity Hospitals Parma Medical CenterFree PSA/Total PSA [Mass fraction]6.2 g/dLLow6.4 - 8.3 g/dL [facility] HealthGFR >60>60 mL/minBrown Memorial Hospital HealthGFR Non->60>60 mL/minBrown Memorial Hospital HealthGFR/1.73 sq M.predicted MDRD (S/P/Bld) [Vol rate/Area][facility] CenterComment on above:Average GFR for 20-29 years old: 116 mL/min/1.73sq m Chronic Kidney Disease: <60 mL/min/1.73sq m Kidney failure: <15 mL/min/1.73sq m eGFR calculated using average adult body mass. Additional eGFR calculator available at: http://www.[employer] Store/multiple_crcl_2012.htm Glucose [Mass/Vol]98 mg/dL70 - 99 mg/dLBrown Memorial Hospital HealthPotassium [Moles/Vol]3.7 mmol/L3.7 - 5.3 mmol/LMercy HealthSodium [Moles/Vol]137 mmol/L135 - 144 mmol/L [facility] Medical CenterUrea nitrogen (BldV) [Mass/Vol]7 mg/dL6 - 20 mg/dLUniversity Hospitals Parma Medical CenterNo Panel Informationon [id number] and review of laboratory results AbnormalUC Healthcy HealthProtein / Creatinine Ratio, Urineon 11-26-2021 Creatinine, Ur31.3 mg/dL28.0 - 217.0 mg/dLBrown Memorial Hospital HealthInterpretation and review of laboratory resultsAbnormalBrown Memorial Hospital HealthProtein (U) [Mass/Vol]11 mg/dLUniversity Hospitals Parma Medical CenterComment on above:No normal range established.Urine Total Protein Creatinine Ratio0.35HighSelect Medical OhioHealth Rehabilitation Hospital HealthProtein,Tot,Sylvester Uron 11-26-2021 Creatinine [Mass/Vol]31.3 mg/rXMjfdqz35.0-217.0Licking Memorial HospitalComment on above:Performed By: #### CBC, HEPXA, CMPX, MG, TSHX, TROPI #### [facility] [address] [place] [address] Sample Puller: Dexter Fried MD #### LIPR #### [facility] [address] [place] [address] Sample Puller: Paco Tatum MDTot Prot. Conc.11 mg/dLNormalLicking Memorial HospitalComaleda e. [facility] on above:Result Comment: No normal range established.Performed By: #### CBC, HEPXA, CMPX, MG, TSHX, TROPI #### [facility] [address] [place] [address] Sample Puller: Dexter Fried MD #### LIPR #### [address] [place] [address] Sample Puller: Paco Tatum MDTP/Cre Ratio0.22Dxbv7.00-0.20L[facility] HospitalComaleda e. lutz veterans affairs medical center on above:Performed By: #### CBC, HEPXA, CMPX, MG, TSHX, TROPI #### [facility] [address] [place] [address] Sample Puller: Dexter Fried MD #### LIPR #### [address] [id number] Sample Puller: RADHA Porter-CoV-2on [id number]-CoV-2 (COVID-19) RNA MYNOR+probe Ql (Unsp spec)Not detectedNormalNOTDEercFerry County Memorial HospitalComaleda e. [facility] medical center on above:Result Comment: Rapid NAAT: The specimen [...] management decisions. Fact sheet for Healthcare Providers: https://www.fda.gov/media/246033/download Fact sheet for Patients: https://www.fda.gov/media/725728/download Methodology: Isothermal Nucleic Acid AmplificationPerformed By: #### COVRB #### [facility] [address] [place], [place] [address] Sample Puller: Dexter Fried MDUric Acidon [id number] [Mass/Vol]6.4 mg/dL High2.4-5.7[facility] John Medical CenterComment on above:Performed By: #### CDP, CP, URI #### [facility] [address] [place] [address] Sample Puller: Paco Tatum MDUrate [Mass/Vol]6.4 mg/dLHigh2.4 - 5.7 mg/dL [facility] Medical CenterBasic Metabolic Panelon [id number] gap [Moles/Vol]11 mmol/L9 - 17 mmol/LMercy HealthCalcium [Mass/Vol]8.5 mg/dLLow8.6 - 10.4 mg/dLBrown Memorial Hospital Health Chloride [Moles/Vol]104 mmol/L98 - 107 mmol/LMercy HealthCO2 [Moles/Vol]22 mmol/L20 - 31 mmol/LMercy HealthCreatinine [Mass/Vol]0.43 mg/dLLow0.50 - 0.90 mg/dLBrown Memorial Hospital HealthGFR >60>60 mL/minMercy HealthGFR Non->60>60 mL/minMemorial Health Systemcy HealthGFR/1.73 sq M.predicted MDRD (S/P/Bld) [Vol rate/Area][facility] Medical CenterComment on above:Average GFR for 20-29 years old: 116 mL/min/1.73sq m Chronic Kidney Disease: <60 mL/min/1.73sq m Kidney failure: <15 mL/min/1.73sq m eGFR calculated using average adult body mass. Additional eGFR calculator available at: http://www.[employer].Posto7/multiple_crcl_2012.htm Glucose [Mass/Vol]101 mg/pKXsqr78 - 99 mg/dLBrown Memorial Hospital HealthPotassium [Moles/Vol]4.2 mmol/L3.7 - 5.3 mmol/LMercy HealthSodium [Moles/Vol]137 mmol/L135 - 144 mmol/L [facility] HealthUrea nitrogen (BldV) [Mass/Vol]9 mg/dL6 - 20 mg/dLBrown Memorial Hospital HealthUrea nitrogen/Creatinine (Bld) [Mass ratio]21HighPremier Health Metabolic Profon 62-92-0281Bfexo gap [Moles/Vol]11 mmol/LNormal9-17Licking Memorial HospitalComment on above:Performed By: #### CBC, HEPXA, CMPX, MG, TSHX, TROPI #### [facility] [address] [place] [address] Sample Puller: Dexter Fried MD #### LIPR #### [address] [address] Sample Puller: Paco Tatum MDBUN/CRE Uhrvv48Grks0-09XnbfhLicking Memorial Hospital Comment on above:Performed By: #### CBC, HEPXA, CMPX, MG, TSHX, TROPI #### [facility] [address] [place] [address] Sample Puller: Dexter Fried MD #### LIPR #### [address] [address] Sample Puller: CELESTE Porteralcium [Mass/Vol]8.5 mg/dLLow8.6-10.4L[facility] Memorial HospitalComment on above:Performed By: #### CBC, HEPXA, CMPX, MG, TSHX, TROPI #### [facility] [address] [place] [address] Sample Puller: Dexter Fried MD #### LIPR #### [address] [address] Sample Puller: CELESTE Porterhloride [Moles/Vol]104 mmol/BVficqv27-895EyodyLicking Memorial HospitalComment on above:Performed By: #### CBC, HEPXA, CMPX, MG, TSHX, TROPI #### [facility] [address] [place] [address] Sample Puller: Dexter Fried MD #### LIPR #### [address] [address] Sample Puller: CELESTE PorterO2 [Moles/Vol]22 mmol/BVfdfpl85-31DnuzdLicking Memorial HospitalComment on above:Performed By: #### CBC, HEPXA, CMPX, MG, TSHX, TROPI #### [facility] [address] [place] [address] Sample Puller: Dexter Fried MD #### LIPR #### [address] [address] Sample Puller: CELESTE Porterreatinine [Mass/Vol]0.43 mg/dLLow0.50-0.90L[facility] HospitalComaleda e. [facility] affairs medical center on above:Performed By: #### CBC, HEPXA, CMPX, MG, TSHX, TROPI #### [facility] [address] [place] [address] Sample Puller: Dexter Fried MD #### LIPR #### [address] [address] Sample Puller: Paco Tatum MDGFR, Amer>60Normal>60L[facility] HospitalComaleda e. [facility] affairs medical center on above:Performed By: #### CBC, HEPXA, CMPX, MG, TSHX, TROPI #### [facility] [address] [place] [address] Sample Puller: Dexter Fried MD #### LIPR #### [address] [address] Sample Puller: Paco Tatum MDGFR,non Amer>60Normal>60L[facility] Memorial HospitalComment on above:Performed By: #### CBC, HEPXA, CMPX, MG, TSHX, TROPI #### [facility] [address] [place] [address] Sample Puller: Dexter Fried MD #### LIPR #### [address] [address] Sample Puller: Paco Tatum MDGlucose [Mass/Vol]101 mg/eFNqzs83-93RtuxlHarborview Medical CenterComaleda e. [facility] medical center on above:Performed By: #### CBC, HEPXA, CMPX, MG, TSHX, TROPI #### [facility] [address] [place] [address] Sample Puller: Dexter Fried MD #### LIPR #### [address] [address] Sample Puller: RAHUL Porterotassium [Moles/Vol]4.2 mmol/LNormal3.7-5.3 [facility] HospitalComaleda e. [facility] medical center on above:Performed By: #### CBC, HEPXA, CMPX, MG, TSHX, TROPI #### [facility] [address] [place] [address] Sample Puller: Dexter Fried MD #### LIPR #### [address] [address] Sample Puller: Paco Tatum MDSodium [Moles/Vol]137 mmol/FPjeqgg922-601LldcaLicking Memorial HospitalComaleda e. [facility] affairs medical center on above:Performed By: #### CBC, HEPXA, CMPX, MG, TSHX, TROPI #### [facility] [address] [place] [address] Sample Puller: Dexter Fried MD #### LIPR #### [address] [address] Sample Puller: Paco Tatum MDUrea nitrogen [Mass/Vol]9 mg/dLNormal6-20L[facility] HospitalComment on above:Performed By: #### CBC, HEPXA, CMPX, MG, TSHX, TROPI #### [facility] [address] [place] [address] Sample Puller: Dexter Fried MD #### LIPR #### [address] [place], [place] [address] Sample Puller: Paco Tatum MD(cont.)[facility] HospitalComaleda e. [facility] on above:Result Comment: Average GFR for 20-29 years old: 116 mL/min/1.73sq m Chronic Kidney Disease: <60 mL/min/1.73sq m Kidney failure: <15 mL/min/1.73sq m eGFR calculated using average adult body mass. Additional eGFR calculator available at: http://www.[employer].Posto7/multiple_crcl_2012.htmPerformed By: #### CBC, HEPXA, CMPX, MG, TSHX, TROPI #### [facility] [address] [place] [address] Sample Puller: Dexter Fried MD #### LIPR #### [address] [id number] Sample Puller: Paco Tatum MDBrain Natri. Peptideon 25-13-2318Wygcfbhwntl peptide B (Bld) [Mass/Vol]163 pg/mLNormal<300Licking Memorial HospitalComaleda e. [facility] medical center on above:Result Comment: An age-independent cutoff point of 300 pg/ml has a 98% negative predictive value excluding acute heart failure.Performed By: #### CBC, HEPXA, CMPX, MG, TSHX, TROPI #### [facility] [address] [place], [place] [address] Sample Puller: Dexter Fried MD #### LIPR #### [facility] CenterT[facility] [address] [place] [address] Sample Puller: Adeel Porter Natriuretic Peptideon 11-25-2021 Natriuretic peptide B (Bld) [Mass/Vol]163 pg/mL<300MerWillapa Harbor HospitalComment on above: An age-independent cutoff point of 300 pg/ml has a 98% negative predictive value excluding acute heart failure. CBC with Auto Differentialon [id number] Eos #0.22MerWillapa Harbor HospitalAbsolute Immature Granulocyte0.10MerWillapa Harbor HospitalAbsolute Lymph #2.14MerWillapa Harbor HospitalAbsolute Whiteside #0.58MerWillapa Harbor HospitalBasophils (Bld) [#/Vol]0.05 10*3/uLMer Nortis Basophils/100 WBC (Bld)1 %0 - 2 %[facility] CenterONStorEosinophils/100 WBC (Bld)2 %1 - 4 % [facility] NortisHematocrit (Bld) [Volume fraction]28.0 %Low36.3 - 47.1 %[facility] CenterONStor Hemoglobin.gastrointestinal spec 1 Ql (Stl)8.8 g/dLLow11.9 - 15.1 g/dLBrown Memorial Hospital NortisImmature granulocytes/100 WBC (Bld)1 %Mbyz8EramzUniversity Hospitals Parma Medical CenterInterpretation and review of laboratory resultsAbnormalUniversity Hospitals Parma Medical CenterLymphocytes/100 WBC (Bld)22 %Low 24 - 43 %[facility] NortisH (RBC) [Entitic mass]26.9 pg25.2 - 33.5 pgUniversity Hospitals Parma Medical Center MCHC (RBC) [Mass/Vol]31.4 g/dL28.4 - 34.8 g/dLUniversity Hospitals Parma Medical CenterMCV (RBC) [Entitic vol]85.6 fL82.6 - 102.9 fLBrown Memorial Hospital NortisMonocytes/100 WBC (Bld)6 %3 - 12 %AdspringrNRBC Automated0.2High0.0 per 100 WBCUniversity Hospitals Parma Medical CenterPlatelet distribution width (Bld) [Ratio]14.7 %High11.8 - 14.4 %[facility] NortisPlatelet mean volume (Bld) [Entitic vol]9.8 fL8.1 - 13.5 fLBrown Memorial Hospital HealthPlatelets (Bld) [#/Vol]227 10*3/uL [facility] (Bld) [#/Vol]3.27 10*6/uLLow3.95 - 5.11 m/[facility] (Bld) [#/Vol]ANISOCYTOSIS PRESENTSelect Medical [facility] Clinic [facility] neutrophils/100 WBC (Bld) 68 %High36 - 65 %[facility] CenterSe Absolute6.46[facility] Medical CenterWBC (Bld) [#/Vol]9.6 10*3/uLFroedtert Menomonee Falls Hospital– Menomonee FallsCB with Diffon [id number]. Basophil0.05 k/uL Normal0.00-0.20Licking [facility] HospitalComment on above:Performed By: #### CBC, HEPXA, CMPX, MG, TSHX, TROPI #### [facility] [address] [place] [address] Sample Puller: Dexter Fried MD #### LIPR #### [address] [address] Sample Puller: Khadra Porter.Imm.Granulocyte0.10 k/uLNormal0.00-0.30L[facility] Memorial HospitalComment on above:Performed By: #### CBC, HEPXA, CMPX, MG, TSHX, TROPI #### [facility] [address] [place] [address] Sample Puller: Dexter Fried MD #### LIPR #### [address] [address] Sample Puller: Khadra Porter.Neutrophil (Seg)6.46 k/uLNormal1.50-8.10 [facility] HospitalComaleda e. [facility] on above:Performed By: #### CBC, HEPXA, CMPX, MG, TSHX, TROPI #### [facility] [address] [place] [address] Sample Puller: Dexter Fried MD #### LIPR #### [address] [address] Sample Puller: Paco Tatum MDBasophils/100 WBC (Bld)1 %Normal0-2[facility] on above:Performed By: #### CBC, HEPXA, CMPX, MG, TSHX, TROPI #### [facility] [address] [place] [address] Sample Puller: Dexter Fried MD #### LIPR #### [address] [address] Sample Puller: Paco Tatum MDEosinophils (Bld) [#/Vol]0.22 10*3/uLNormal 0.00-0.44[facility] on above:Performed By: #### CBC, HEPXA, CMPX, MG, TSHX, TROPI #### [facility] [address] [place] [address] Sample Puller: Dexter Fried MD #### LIPR #### [address] [address] Sample Puller: Paco Tatum MDEosinophils/100 WBC (Bld)2 %Normal1-4[facility] HospitalComaleda e. [facility] on above:Performed By: #### CBC, HEPXA, CMPX, MG, TSHX, TROPI #### [facility] [address] [place] [address] Sample Puller: Dexter Fried MD #### LIPR #### [address] [address] Sample Puller: Paco Tatum MDErythrocyte distribution width (RBC) [Ratio]14.7 %High11.8-14.4[facility] on above:Performed By: #### CBC, HEPXA, CMPX, MG, TSHX, TROPI #### [facility] [address] [place] [address] Sample Puller: Dexter Fried MD #### LIPR #### [address] [address] Sample Puller: Paco Tatum MDHematocrit (Bld) [Volume fraction]28.0 %Low 36.3-47.1Muniversity hospitals beach[facility] medical centery [facility] Medical CenterComaleda e. [facility] on above:Performed By: #### CBC, HEPXA, CMPX, MG, TSHX, TROPI #### [facility] [address] [place] [address] Sample Puller: Dexter Fried MD #### LIPR #### [address] [address] Sample Puller: Paco Tatum MDHemoglobin (Bld) [Mass/Vol]8.8 g/dLLow11.9-15.1 [facility] HospitalComaleda e. [facility] on above:Performed By: #### CBC, HEPXA, CMPX, MG, TSHX, TROPI #### [facility] [address] [place] [address] Sample Puller: Dexter Fried MD #### LIPR #### [address] [address] Sample Puller: Paco Tatum MDImmature granulocytes/100 WBC (Bld)1 %Sueh1KjaycLicking Memorial HospitalComaleda e. [facility] on above:Performed By: #### CBC, HEPXA, CMPX, MG, TSHX, TROPI #### [facility] [address] [place] [address] Sample Puller: Dexter Fried MD #### LIPR #### [address] [address] Sample Puller: Paco Tatum MDLymphocytes (Bld) [#/Vol]2.14 10*3/uLNormal 1.10-3.70[facility] HospitalComaleda e. [facility] on above:Performed By: #### CBC, HEPXA, CMPX, MG, TSHX, TROPI #### [facility] [address] [place] [address] Sample Puller: Dexter Fried MD #### LIPR #### [address] [address] Sample Puller: Kris Portermphocytes/100 WBC (Bld)22 %Rty30-18OfadvLicking Memorial HospitalComment on above:Performed By: #### CBC, HEPXA, CMPX, MG, TSHX, TROPI #### [facility] [address] [place] [address] Sample Puller: Dexter Fried MD #### LIPR #### [address] [address] Sample Puller: OCTAVIA PorterCH (RBC) [Entitic mass]26.9 zgFbzmmv08.2-33.5 [facility] HospitalComaleda e. [facility] on above:Performed By: #### CBC, HEPXA, CMPX, MG, TSHX, TROPI #### [facility] [address] [place] [address] Sample Puller: Dexter Fried MD #### LIPR #### [address] [address] Sample Puller: OCTAVIA PorterCHC (RBC) [Mass/Vol]31.4 g/rJYylxji13.4-34.8 [facility] HospitalComaleda e. [facility] on above:Performed By: #### CBC, HEPXA, CMPX, MG, TSHX, TROPI #### [facility] [address] [place] [address] Sample Puller: Dexter Fried MD #### LIPR #### [address] [address] Sample Puller: OCTAVIA PorterCV (RBC) [Entitic vol]85.6 iXWpvlud86.6-102.9 [facility] on above:Performed By: #### CBC, HEPXA, CMPX, MG, TSHX, TROPI #### [facility] [address] [place] [address] Sample Puller: Dexter Fried MD #### LIPR #### [address] [address] Sample Puller: Paco Tatum MDMonocytes (Bld) [#/Vol]0.58 10*3/uLNormal 0.10-1.20[facility] on above:Performed By: #### CBC, HEPXA, CMPX, MG, TSHX, TROPI #### [facility] [address] [place] [address] Sample Puller: Dexter Fried MD #### LIPR #### [address] [address] Sample Puller: Paco Tatum MDMonocytes/100 WBC (Bld)6 %Normal3-12[facility] on above:Performed By: #### CBC, HEPXA, CMPX, MG, TSHX, TROPI #### [facility] [address] [place] [address] Sample Puller: Dexter Fried MD #### LIPR #### [address] [address] Sample Puller: Paco Tatum MDNeutrophil (Seg)68 %Pmlh79-55HkphhOur Lady of Mercy Hospital on above:Performed By: #### CBC, HEPXA, CMPX, MG, TSHX, TROPI #### [facility] [place] [address] Sample Puller: Dexter Fried MD #### LIPR #### [address] [address] Sample Puller: Paco Tatum MDNRBC Automated0.2 per 100 WBCHigh0.0[facility] on above:Performed By: #### CBC, HEPXA, CMPX, MG, TSHX, TROPI #### [facility] [address] [place] [address] Sample Puller: Dexter Fried MD #### LIPR #### [address] [address] Sample Puller: Keysha Porter mean volume (Bld) [Entitic vol]9.8 fL Normal8.1-13.5[facility] on above:Performed By: #### CBC, HEPXA, CMPX, MG, TSHX, TROPI #### [facility] [address] [place] [address] Sample Puller: Dexter Fried MD #### LIPR #### [address] [address] Sample Puller: Jason Porter (Bld) [#/Vol]227 10*3/mXIseody153-093 [facility] on above:Performed By: #### CBC, HEPXA, CMPX, MG, TSHX, TROPI #### [facility] [address] [place] [address] Sample Puller: Dexter Fried MD #### LIPR #### [address] [address] Sample Puller: PATRICIA Porter (Bld) [#/Vol]3.27 10*6/uLLow3.95-5.11[facility] on above:Performed By: #### CBC, HEPXA, CMPX, MG, TSHX, TROPI #### [facility] [address] [place] [address] Sample Puller: Dexter Fried MD #### LIPR #### [address] [address] Sample Puller: PATRICIA Porter morphology finding Nom (Bld)ANISOCYTOSIS PRESENTNormalLicking Memorial HospitalComaleda e. [facility] on above:Performed By: #### CBC, HEPXA, CMPX, MG, TSHX, TROPI #### [facility] [address] [place] [address] Sample Puller: Dexter Fried MD #### LIPR #### [address] [address] Sample Puller: Paco Tatum MDWBC (Bld) [#/Vol]9.6 10*3/uLNormal3.5-11.3MProtestant Hospital on above:Performed By: #### CBC, HEPXA, CMPX, MG, TSHX, TROPI #### [facility] [address] [place] [address] Sample Puller: Dexter Fried MD #### LIPR #### [address] [address] Sample Puller: Paco Tatum MDHepatic Function Panelon [id number] [Mass/Vol]3.2 g/dLLow3.5 - 5.2 g/dLMercy HealthALP (Bld) [Catalytic activity/Vol]102 U/L35 - 104 U/LMercy HealthALT [Catalytic activity/Vol]44 U/L High5 - 33 U/LMercy HealthAST [Catalytic activity/Vol]29 U/L<32[facility] Bilirubin [Mass/Vol]0.13 mg/dLLow0.3 - 1.2 mg/dLMer HealthBilirubin, Indirect Can not be calculated0.00 - 1.00 mg/dLMer HealthBilirubin.indirect [Mass/Vol] mg/dL<0.31 mg/dLBrown [facility] Hospital HealthFree PSA/Total PSA [Mass fraction]6.2 g/dLLow6.4 - 8.3 g/dLMercy HealthLactate Dehydrogenaseon [id number] [Catalytic activity/Vol]183 U/OSiqgpd594-279NmaaqSnoqualmie Valley HospitalComment on above: Performed By: #### CBC, HEPXA, CMPX, MG, TSHX, TROPI #### [facility] [address] [place] [address] Sample Puller: Dexter Fried MD #### LIPR #### [facility] CenterTrivent[facility] [address] [place] [address] Sample Puller: Paco Tatum MDLD183 U/L135 - 214 U/LMercy HealthLiver Profile on [id number] [Mass/Vol]3.2 g/dLLow3.5-5.2Mer[facility]lee Medical CenterComment on above:Performed By: #### CBC, HEPXA, CMPX, MG, TSHX, TROPI #### [facility] [address] [place] [address] Sample Puller: Dexter Fried MD #### LIPR #### [facility] [address] [place] [address] Sample Puller: Dinah Porter Ucoe621 U/HXfvqqf25-813SprykOur Lady of Mercy Hospital on above:Performed By: #### CBC, HEPXA, CMPX, MG, TSHX, TROPI #### [facility] [address] [place] [address] Sample Puller: Dexter Fried MD #### LIPR #### [address] [address] Sample Puller: Paco Tatum MDALT [Catalytic activity/Vol]44 U/LHigh5-33[facility] on above:Performed By: #### CBC, HEPXA, CMPX, MG, TSHX, TROPI #### [facility] [address] [place] [address] Sample Puller: Dexter Fried MD #### LIPR #### [address] [address] Sample Puller: Paco Tatum MDAST [Catalytic activity/Vol]29 U/LNormal<32[facility] on above:Performed By: #### CBC, HEPXA, CMPX, MG, TSHX, TROPI #### [facility] [address] [place] [address] Sample Puller: Dexter Fried MD #### LIPR #### [address] [address] Sample Puller: Paco Tatum MDBilirubin [Mass/Vol]0.13 mg/dLLow0.3-1.2MProtestant Hospital on above:Performed By: #### CBC, HEPXA, CMPX, MG, TSHX, TROPI #### [facility] [address] [place] [address] Sample Puller: Dexter Fried MD #### LIPR #### [address] [address] Sample Puller: Paco Tatum MDBilirubin, IndirectCan not be calculatedNormal 0.00-1.00L[facility] HospitalComment on above:Performed By: #### CBC, HEPXA, CMPX, MG, TSHX, TROPI #### [facility] [address] [place] [address] Sample Puller: Dexter Fried MD #### LIPR #### [address] [address] Sample Puller: Cat Porter.indirect [Mass/Vol]mg/dLNormal<0.31 [facility] HospitalComment on above:Performed By: #### CBC, HEPXA, CMPX, MG, TSHX, TROPI #### [facility] [address] [place] [address] Sample Puller: Dexter Fried MD #### LIPR #### [address] [address] Sample Puller: Paco Tatum MDProtein [Mass/Vol]6.2 g/dLLow6.4-8.3[facility] Medical CenterComaleda e. [facility] on above:Performed By: #### CBC, HEPXA, CMPX, MG, TSHX, TROPI #### [facility] [address] [place] [address] Sample Puller: Dexter Fried MD #### LIPR #### [address] [address] Sample Puller: Paco Tatum MDMagnesiumon [id number] [Mass/Vol]1.9 mg/dLNormal1.6-2.6Mer[facility]lee Medical CenterComment on above:Performed By: #### CBC, HEPXA, CMPX, MG, TSHX, TROPI #### [facility] [address] [place], [place] [address] Sample Puller: eDxter Fried MD #### LIPR #### [address] [place], [place] [address]687[address] Sample Puller: Jani Portergnesium [Mass/Vol]1.9 mg/dL1.6 - 2.6 mg/dL [facility] Medical CenterMicroscopic Urinalysison 11-25-2021-[facility] Medical CenterBacteria, UARARE AbnormalNoneMetrinity health system west campus HealthEpithelial Cells UA0 TO 2Mmetrohealth parma medical center HealthInterpretation and review of laboratory resultsAbnoOhio Valley Surgical HospitalRBC, UA5 TO 10[facility] CenterWBC, UA0 TO 2Muniversity hospitals beachwood medical centery [facility] HospitalNo Panel Informationon [id number] and review of laboratory resultsAbDepartment of Veterans Affairs [facility] Troponinon [id number], High Sens6 ng/LNormal0-14[facility] Comment on above:Result Comment: High Sensitivity Troponin values cannot be compared with other Troponin methodologies. Patients with high levels of Biotin oral intake (i.e >5mg/day) may have falsely decreased Troponin levels. Samples collected within 8 hours of biotin intake may require additional information for diagnosis.Performed By: #### CBC, HEPXA, CMPX, MG, TSHX, TROPI #### [facility] [address] [place] [address] Sample Puller: Dexter Freid MD #### LIPR #### [facility] [address] [place], [place] 8422608 Sample Puller: Paco Tatum MDTroponin, High Sensitivity6 ng/L0 - 14 ng/LMuniversity hospitals beachwood medical centery HealthComment on above: High Sensitivity Troponin values cannot be compared with other Troponin methodologies. Patients with high levels of Biotin oral intake (i.e >5mg/day) may have falsely decreased Troponin levels. Samples collected within 8 hours of biotin intake may require additional information for diagnosis. UA w/Reflex Cultureon [id number], SemiQt,UrNegativeNormalNEGMerSnoqualmie Valley HospitalComment on above:Performed By: #### CBC, HEPXA, CMPX, MG, TSHX, TROPI #### [facility] [address] [place] [address] Sample Puller: Dexter Fried MD #### LIPR #### [address] [address] Sample Puller: Gerber Porter, Urine3+AbnormalNEGLicking Memorial Hospital Comment on above:Performed By: #### CBC, HEPXA, CMPX, MG, TSHX, TROPI #### [facility] [address] [place] [address] Sample Puller: Dexter Fried MD #### LIPR #### [address] [address] Sample Puller: Nenita Porter (U)SLIGHTLY CLOUDYAbnormalCLEARMercFerry County Memorial HospitalComment on above:Performed By: #### CBC, HEPXA, CMPX, MG, TSHX, TROPI #### [facility] [address] [place] [address] Sample Puller: Dexter Fried MD #### LIPR #### [address] [address] Sample Puller: June Porter (U)AMBERAbnormalYMercy Health Anderson Hospital Comment on above:Performed By: #### CBC, HEPXA, CMPX, MG, TSHX, TROPI #### [facility] [address] [place] [address] Sample Puller: Dexter Fried MD #### LIPR #### [address] [address] Sample Puller: Paco Tatum MDGlucose Ql (U)NegativeNormalNEGMerYakima Valley Memorial Hospital on above:Performed By: #### CBC, HEPXA, CMPX, MG, TSHX, TROPI #### [facility] [address] [place] [address] Sample Puller: Dexter Fried MD #### LIPR #### [address] [address] Sample Puller: Paco Tatum MDKetones Ql (U)NegativeNormalNEGMerSnoqualmie Valley HospitalComaleda e. [facility] on above:Performed By: #### CBC, HEPXA, CMPX, MG, TSHX, TROPI #### [facility] [address] [place] [address] Sample Puller: Dexter Fried MD #### LIPR #### [address] [address] Sample Puller: Paco Tatum MDLeukocyte esterase Test strip Ql (U)TRACE AbnormalNEGMercy Coulee Medical CenterComaleda e. [facility] on above:Performed By: #### CBC, HEPXA, CMPX, MG, TSHX, TROPI #### [facility] [address] [place] [address] Sample Puller: Dexter Fried MD #### LIPR #### [address] [address] Sample Puller: Paco Tatum MDNitrite,UrNegativeNormalNEGMerSnoqualmie Valley HospitalComaleda e. [facility] on above:Performed By: #### CBC, HEPXA, CMPX, MG, TSHX, TROPI #### [facility] [address] [place] [address] Sample Puller: Dexter Fried MD #### LIPR #### [address] [address] Sample Puller: RAHUL Porter,Ur6.5Txxyco5.0-8.0[facility] Comment on above:Performed By: #### CBC, HEPXA, CMPX, MG, TSHX, TROPI #### [facility] [address] [place] [address] Sample Puller: Dexter Fried MD #### LIPR #### [address] [address] Sample Puller: RAHUL Portermorristown medical center Ql (U)NegativeNormalNEGLicking Memorial HospitalComment on above:Performed By: #### CBC, HEPXA, CMPX, MG, TSHX, TROPI #### [facility] [address] [place] [address] Sample Puller: Dexter Fried MD #### LIPR #### [address] [address] Sample Puller: Paco Tatum [facility] [place] CITYpec. [place],Ur1.608Zszntn3.005-1.030L[facility] Memorial HospitalComment on above:Performed By: #### CBC, HEPXA, CMPX, MG, TSHX, TROPI #### [facility] [address] [place] [address] Sample Puller: Dexter Fried MD #### LIPR #### [address] [address] Sample Puller: Paco Tatum MDUrobilinogen,UrNormalNormalNORMLicking Memorial HospitalComment on above:Performed By: #### CBC, HEPXA, CMPX, MG, TSHX, TROPI #### [facility] [address] [place] [address] Sample Puller: Dexter Fried MD #### LIPR #### [address] [id number] Sample Puller: Paco Tatum MDUrinalysis with Reflex to Cultureon 11-25-2021 Bilirubin UrineNegativeNEGATIVEMercy HealthColor, UAAMBERAbnormalYellowMercy HealthGlucose, UrNegativeNEGATIVEMercy HealthInterpretation and review of laboratory resultsAbnormalMercy HealthKetones Ql (U)NegativeNEGATIVEMercy Health Leukocyte esterase Test strip Ql (U)TRACEAbnormalNEGATIVEMercy HealthNitrite, UrineNegativeNEGATIVEMercy HealthpH, UA6.0Mercy HealthProtein, UANegative NEGATIVEMercy HealthSpecific [place], UA1.015Mercy HealthTurbidity UASLIGHTLY CLOUDYAbnormalClearMercy HealthUrine Hgb3+AbnormalNEGATIVEMercy Health Urobilinogen, UrineNormalNormalMercy HealthMercy HealthUrinalysis,Microon 11-25-2021-----NormalLicking Memorial HospitalComment on above:Performed By: #### CBC, HEPXA, CMPX, MG, TSHX, TROPI #### [facility] [address] [place] [address] Sample Puller: Dexter Fried MD #### LIPR #### [address] [address] Sample Puller: Paco Tatum MDBacteriaRAREAbSelect Medical Specialty Hospital [facility] [place] Comment on above:Performed By: #### CBC, HEPXA, CMPX, MG, TSHX, TROPI #### [facility] [address] [place] [address] Sample Puller: Dexter Fried MD #### LIPR #### [address] [address] Sample Puller: Paco Tatum MDEpithelial cells LM Ql (Urine sed)0 TO 2Normal 0-5Mer[facility] Coulee Medical CenterComment on above:Performed By: #### CBC, HEPXA, CMPX, MG, TSHX, TROPI #### [facility] [address] [place] [address] Sample Puller: Dexter Fried MD #### LIPR #### [address] [address] Sample Puller: Paco Tatum MDUrine RBC's5 TO 34Dohrpo4-9Gfeac [facility]lee Medical CenterComment on above:Performed By: #### CBC, HEPXA, CMPX, MG, TSHX, TROPI #### [facility] [address] [place] [address] Sample Puller: Dexter Fried MD #### LIPR #### [address] [address] Sample Puller: Paco Tatum MDUrine WBC's0 TO 1Eyxcfj1-9Kdkex [facility]lee Medical CenterComment on above:Performed By: #### CBC, HEPXA, CMPX, MG, TSHX, TROPI #### [facility] [address] [place] [address] Sample Puller: Dexter Fried MD #### LIPR #### [address] [address] Sample Puller: Paco Tatum [facility] GLUCOSEon [id number] [Mass/Vol]123 mg/dLCritically snsp22-085SrgHocking Valley Community HospitalComment on above: Performed By: #### CVDTB #### [facility] [address] [address] [address] Emmanuel Cantu AUTO DIFFon [id number] #0.0 103/ulNormal0.0-0.1The [facility] Mercy HospitalComment on above:Performed By: #### CBC #### [facility] [address] [place] [address] Dr. Emmanuel MurrayBasophils/100 WBC (Bld)0.3 %Normal0.2-2.0[facility] Comment on above:Performed By: #### CBC #### [facility] [address] [place] [address] Dr. Emmanuel Hopkins #0.2 103/ulNormal0.0-0.7The [facility] HospitalComment on above: Performed By: #### CBC #### [facility] [address] [place] [address] Dr. Emmanuel Brownosinophils/100 WBC (Bld)1.4 %Normal0.9-7.0[facility] Comment on above:Performed By: #### CBC #### [facility] [address] [place] [address] Dr. Emmanuel Brownrythrocyte distribution width (RBC) [Ratio]14.7 %Dhubyg53.0-15.0 [facility] HospitalComment on above:Performed By: #### CBC #### [facility] [address] [place] [address] Dr. Emmanuel MurrayHematocrit (Bld) [Volume fraction]28.9 %Critically low36.0-48.0 [facility] HospitalComment on above:Performed By: #### CBC #### [facility] [address] [place] [address] Dr. Emmanuel MurrayHemoglobin (Bld) [Mass/Vol]9.5 g/dLCritically low12.0-16.0The [facility] HospitalComment on above:Performed By: #### CBC #### [facility] [address] [place] [address] Dr. Emmanuel Gunderson #0.09 10e3/ulCritically high0.00-0.03[facility] Comment on above:Performed By: #### CBC #### [facility] [address] [address] [address] Emmanuel Gunderson %0.8 %Critically high0.0-0.5The [facility] HospitalComment on above:Performed By: #### CBC #### [facility] [address] [address] [address] Emmanuel Dorsey #2.5 103/ulNormal1.2-3.8The [facility] HospitalComment on above:Performed By: #### CBC #### [facility] [address] [address] [address] Emmanuel Cateshocytes/100 WBC (Bld)21.4 %Nqyvyh69.5-60.0Hocking Valley Community HospitalComment on above:Performed By: #### CBC #### [facility] [address] [place] [address] Dr. Emmanuel Guevara DIFF REQNONormalThe [facility] Mer[facility] HospitalComment on above: Performed By: #### CBC #### [facility] [address] [address] [address] Emmanuel Austin (RBC) [Entitic mass]28.1 hnBmxiua44.7-34.0The [facility] HospitalComment on above:Performed By: #### CBC #### [facility] [address] [address] [address] Emmanuel Marcus (RBC) [Mass/Vol]32.9 g/bNDhflnw29.9-35.2The [facility] HospitalComment on above:Performed By: #### CBC #### [facility] [address] [place] [address] Dr. Emmanuel Marcus (RBC) [Entitic vol]85.5 lTToehrr66.0-99.0The [facility] HospitalComment on above:Performed By: #### CBC #### [facility] [address] [place] [address] Dr. Emmanuel Baldwin #0.6 103/ulNormal0.3-0.8The [facility] HospitalComment on above:Performed By: #### CBC #### [facility] [address] [place] [address] Dr. Emmanuel Sanchezocytes/100 WBC (Bld)5.2 %Normal1.7-12.0[facility] Comment on above:Performed By: #### CBC #### [facility] [address] [place] [address] Dr. Emmanuel Hannah #8.1 103/ulCritically high1.4-6.5[facility] Comment on above:Performed By: #### CBC #### [facility] [address] [place] [address] Dr. Emmanuel Hamptonutrophils/100 WBC (Bld)70.9 %Atnawf71.0-75.0The [facility] HospitalComment on above:Performed By: #### CBC #### [facility] [address] [place] [address] Dr. Emmanuel Coboslet mean volume (Bld) [Entitic vol]10.0 fLNormal9.5-13.5The [facility] HospitalComment on above:Performed By: #### CBC #### [facility] [address] [place] [address] Dr. Emmanuel MurrayPLT186 103/nxBtiggi478-946Qcx [facility] HospitalComment on above: Performed By: #### CBC #### [facility] [address] [place] [address] Dr. Emmanuel LarsenC3.38 106/ulCritically low4.20-5.40The [facility] HospitalComment on above:Performed By: #### CBC #### [facility] [address] [place] [address] Dr. Emmanuel MurrayWBC11.4 103/ulCritically high4.0-11.0The [facility] HospitalComment on above:Performed By: #### CBC #### [facility] [address] [place] [address] Dr. Emmanuel Cantu AUTO DIFFon [id number] #0.1 103/ulNormal0.0-0.1The [facility] HospitalComment on above:Performed By: #### CVDTBH #### [facility] [address] [place] [address] Dr. Emmanuel MurrayBasophils/100 WBC (Bld)0.4 %Normal0.2-2.0[facility] Comment on above:Performed By: #### CVDTBH #### [facility] [address] [place] [address] Dr. Emmanuel Hopkins #0.1 103/ulNormal0.0-0.7The [facility] HospitalComment on above: Performed By: #### CVDTBH #### [facility] [address] [place] [address] Dr. Emmanuel Brownosinophils/100 WBC (Bld)0.4 %Critically low0.9-7.0The [facility] HospitalComment on above:Performed By: #### CVDTBH #### [facility] [address] [place] [address] Dr. Emmanuel Brownrythrocyte distribution width (RBC) [Ratio]14.8 %Ooxytt30.0-15.0 The [facility] HospitalComment on above:Performed By: #### CVDTBH #### [facility] [address] [place] [address] Dr. Emmanuel MurrayHematocrit (Bld) [Volume fraction]32.6 %Critically low36.0-48.0 The [facility] HospitalComment on above:Performed By: #### CVDTBH #### [facility] [address] [place] [address] Dr. Emmanuel MurrayHemoglobin (Bld) [Mass/Vol]10.6 g/dLCritically low12.0-16.0The [facility] HospitalComment on above:Performed By: #### CVDTBH #### [facility] [address] [place] [address] Dr. Emmanuel Gunderson #0.10 10e3/ulCritically high0.00-0.03[facility] Comment on above:Performed By: #### CVDTBH #### [facility] [address] [address] [address] Emmanuel Gunderson %0.9 %Critically high0.0-0.5The [facility] HospitalComment on above:Performed By: #### CVDTBH #### [facility] [address] [address] [address] Emmanuel Dorsey #2.3 103/ulNormal1.2-3.8The [facility] HospitalComment on above:Performed By: #### CVDTBH #### [facility] [address] [place] [address] Dr. Emmanuel Cateshocytes/100 WBC (Bld)19.6 %Critically low20.5-60.0The [facility] HospitalComment on above:Performed By: #### CVDTBH #### [facility] [address] [place] [address] Dr. Emmanuel AwadUAL DIFF REQNONormalThe [facility] HospitalComment on above: Performed By: #### CVDTBH #### [facility] [address] [place] [address] Dr. Emmanuel Marcus (RBC) [Entitic mass]27.2 ypWagnee25.7-34.0The [facility] HospitalComment on above:Performed By: #### CVDTBH #### [facility] [address] [place] [address] Dr. Emmanuel Marcus (RBC) [Mass/Vol]32.5 g/xWZkgbdn55.9-35.2The [facility] HospitalComment on above:Performed By: #### CVDTBH #### [facility] [address] [place] [address] Dr. Emmanuel Marcus (RBC) [Entitic vol]83.6 xOFmowhf74.0-99.0The [facility] HospitalComment on above:Performed By: #### CVDTBH #### [facility] [address] [place] [address] Dr. Emmanuel Baldwin #0.5 103/ulNormal0.3-0.8The [facility] HospitalComment on above:Performed By: #### CVDTBH #### [facility] [address] [place] [address] Dr. Emmanuel Sanchezocytes/100 WBC (Bld)4.4 %Normal1.7-12.0[facility] Comment on above:Performed By: #### CVDTBH #### [facility] [address] [place] [address] Dr. Emmanuel Hannah #8.7 103/ulCritically high1.4-6.5[facility] Comment on above:Performed By: #### CVDTBH #### [facility] [address] [place] [address] Dr. Emmanuel Hamptonutrophils/100 WBC (Bld)74.3 %Wibetv63.0-75.0The [facility] HospitalComment on above:Performed By: #### CVDTBH #### [facility] [address] [place] [address] Dr. Emmanuel Christy mean volume (Bld) [Entitic vol]10.1 fLNormal9.5-13.5The [facility] HospitalComment on above:Performed By: #### CVDTBH #### [facility] [address] [place] [address] Dr. Emmanuel MurrayPLT239 103/hpYjkxsn478-481Qjd [facility] HospitalComment on above: Performed By: #### CVDTBH #### [facility] [address] [place] [address] Dr. Emmanuel MuraryRBC3.90 106/ulCritically low4.20-5.40The [facility] HospitalComment on above:Performed By: #### CVDTBH #### [facility] [address] [place] [address] Dr. Emmanuel PerezBC11.7 103/ulCritically high4.0-11.0The [facility] HospitalComment on above:Performed By: #### CVDTBH #### [facility] [address] [place] [address] Dr. Yilan ChangCovid-19 PCR (CVDTB)on [id number]-CoV-2 (COVID-19) RNA MYNOR+probe Ql (Unsp spec)Not detectedNormalNOT DETECTEDHocking Valley Community Hospital Comment on above:Result Comment: When diagnostic [...] for this test is supported by the [employer] of [employer] and Human Service's declaration that [...] longer be used).Performed By: #### CVDTBH #### [facility] [address] [place] [address] Dr. Emmanuel Katz SCREEN RAPID (URINE)on 23-04-1826YODLgvyabbyLxlvolGOZCMJJC [facility] HospitalComment on above:Performed By: #### DRUGRPD #### [facility] [address] [place] [address] Dr. Emmanuel MurrayBARNegativeNormalNEGATIVEHocking Valley Community HospitalComment on above: Performed By: #### DRUGRPD #### [facility] [address] [place] [address] Dr. Emmanuel MurrayBUPNegativeNormalNEGATIVEHocking Valley Community HospitalComment on above: Performed By: #### DRUGRPD #### [facility] [address] [place] [address] Dr. Emmanuel MurrayBZONegativeNormalNEGATIVEHocking Valley Community HospitalComment on above: Performed By: #### DRUGRPD #### [facility] [address] [place] [address] Dr. Emmanuel AguilartiveNormalNEGATIVEHocking Valley Community HospitalComment on above: Performed By: #### DRUGRPD #### [facility] [address] [place] [address] Dr. Emmanuel MillardCleveland Clinic Akron GeneralComment on above: Result Comment: AMP (Amphetamine): 500ng/mL, BAR (Barbituates): 200 ng/mL, BZO (Benzodiazepines): 150 ng/mL, BUP (Buprenorphine): 10 ng/mL, PATI (Cocaine): 150 ng/mL, mAMP (Methamphetamine): 500 ng/mL, MTD (Methadone): 200 ng/mL, OPI (Opiates): 100 ng/mL, OXY (Oxycodone): 100 ng/mL, PCP (Phencyclidine): 25 ng/mL, PPX (Propoxyphene): 300 ng/mL, THC (Cannabinoids): 50 ng/mL, TCA (Trycyclic Antidepressants): 300 ng/mLPerformed By: #### DRUGRPD #### [facility] [address] [place] [address] Dr. Emmanuel MurrayDRUG CUT HEADERDRUG CLASS TEST SYSTEM CUT-OFF CONCENTRATIONS ARE FOLLOWS:NormalThe [facility] Mercy HospitalComment on above:Performed By: #### DRUGRPD #### [facility] [address] [place] [address] Dr. Emmanuel MurraymAMPNegativeNormalNEGATIVEHocking Valley Community HospitalComment on above: Performed By: #### DRUGRPD #### [facility] [address] [place] [address] Dr. Emmanuel MurrayMTDNegativeNormalNEGATIVEHocking Valley Community HospitalComaleda [facility] on above: Performed By: #### DRUGRPD #### [facility] [address] [place] [address] Dr. Emmanuel AlexgativeNormalNEGATIVEHocking Valley Community HospitalComment on above: Performed By: #### DRUGRPD #### [facility] [address] [place] [address] Dr. Emmanuel MurrayOXYNegativeNormalNEGATIVEHocking Valley Community HospitalComment on above: Performed By: #### DRUGRPD #### [facility] [address] [address] [address] Emmanuel MurrayPCPNegativeNormalNEGKettering Health Main CampusComment on above: Performed By: #### DRUGRPD #### [facility] [address] [address] [address] Emmanuel MurrayPPXNegativeNormalNEGKettering Health Main CampusComment on above: Performed By: #### DRUGRPD #### [facility] [address] [address] [address] Emmanuel MurrayTCANegativeNormalNEGATIVEHocking Valley Community HospitalComment on above: Performed By: #### DRUGRPD #### [facility] [address] [address] [address] Emmanuel MurrayTHCNegativeNormalNEGKettering Health Main CampusComment on above: Performed By: #### DRUGRPD #### [facility] [address] [address] [address] Emmanuel MurrayTYPE AND SCREENon 78-19-2590HBAJ AND SCREENNegativeNormalThHighland District HospitalComment on above:Performed By: #### CVDTBH #### [facility] [address] [address] [address] Emmanuel Murray Vital Signs Date TimeVital SignValuePerforming FzpmcvqwjVizofumy61-03-7182 13:57-0400Body mass index (BMI) [Ratio]44.21 kg/m2Winter BURTON Work Phone: [facility] HospitalZbnxmlspmw90-83-0060 13:57-0400Body destqo646.14 kgWinter BURTON Work Phone: [facility] HospitalEpslyeygpn73-37-4211 13:57-0400Diastolic blood wipwtcjs47 mm[Hg]Winter BURTON Work Phone: [facility] HospitalEvzahadzyu75-29-0450 13:57-0400Systolic blood bgeqvstn882 mm[Hg]Winter BURTON Work Phone: [facility] HospitalMbveomqgcg17-00-5372 09:13-0400Body mass index (BMI) [Ratio]43.65 kg/l0XytmclcgNed Spicer CAP AND STUD MACHINE OPERATOR Work Phone: 1(423)[address] [place], [place] 7730610-01-2025 09:13-0400Body .78 kgNed Spicer CAP AND STUD MACHINE OPERATOR Work Phone: [phone])[address] [place], [place] 7730610-01-2025 09:13-0400Diastolic blood ihtrnqjb29 mm[Hg]Ned Spicer [employer] AND STUD MACHINE OPERATOR Work Phone: 1(419)[address] [place], [place] 7730610-01-2025 09:13-0400Systolic blood xgomzvkg875 mm[Hg]Ned Spicer CAP AND STUD MACHINE OPERATOR Work Phone: 1(419)[address] [place], [place] 7730609-19-2025 10:20-0400Body smahfg018.9 cmEster Pratt MD Work Phone: 1(419)[address] [place], [place] 7547909-19-2025 10:20-0400Body mass index (BMI) [Ratio]43.14 kg/m2Ester Pratt MD Work Phone: [phone])[address] [place], [place] 7547909-19-2025 10:20-0400Body eqehaf315.51 kgEster Pratt MD Work Phone: [phone])[address] [place], [place] 7547909-19-2025 10:20-0400Diastolic blood phdezebc53 mm[Hg]Ester Pratt MD Work Phone: 1(419)[address] [place], [place] 7547909-19-2025 10:20-0400Heart rate 51 /Kelley Pratt MD Work Phone: 1(419)[address] [place], [place] 7547909-19-2025 10:20-0400Systolic blood zwnxioix489 mm[Hg]Ester Pratt MD Work Phone: 1(419)[address] [place], [place] 7547909-04-2025 08:53-0400Body mass index (BMI) [Ratio]44.37 kg/y0QgiidhhwNed Spicer CAP AND STUD MACHINE OPERATOR Work Phone: 1(419)[address] [place], [place] 7730609-04-2025 08:53-0400Body satnhm707.5 kgNed Spicer CAP AND STUD MACHINE OPERATOR Work Phone: [phone])[address] [place], [place] 7730609-04-2025 08:53-0400Diastolic blood tmgmykzx65 mm[Hg]Ned Philiperly CAP AND STUD MACHINE OPERATOR Work Phone: 1(775)411-[address] [place], [place] [address]Wvvzzfeuxz80-61-1795 08:53-0400Systolic blood pugpzfsv234 mm[Hg]Ned Spicer CAP AND STUD MACHINE OPERATOR Work Phone: 1(866)[address]08-11-2025 09:17-0400Body mass index (BMI) [Ratio]43.08 kg/e3Lysuw Carmen DO Work Phone: [phone])[address]08-11-2025 09:17-0400Body qkjife478.42 kgCorey Carmen DO Work Phone: [phone])[phone]08-11-2025 09:17-0400Diastolic blood mjdapshy12 mm[Hg]Bin Carmen DO Work Phone: 1([phone])441-[address] [place], [place] [address]Sgupzdmkfn68-74-0636 09:17-0400Systolic blood wglouymx186 mm[Hg]Bin Isaaco DO Work Phone: [phone])[address]07-11-2025 09:27-0400Body mass index (BMI) [Ratio]42.89 kg/f9JxqwiCo[facility]07-11-2025 09:27-0400Body weight 102.97 kgCo[facility]07-11-2025 09:27-0400Diastolic blood xwyfiyfs40 mm[Hg][facility]07-11-2025 09:27-0400Systolic blood pyaxtkfb887 mm[Hg][facility]04-24-2025 11:00-0400Body cjmjha315.9 cmKathleen Hoitenga PA-C Work Phone: [facility]04-24-2025 11:00-0400Body mass index (BMI) [Ratio]45.31 kg/a6Awqvuvdu Hoitenga PA-C Work Phone: [facility]04-24-2025 11:00-0400Body dloagg468.73 kgKathleen Hoitenga PA-C Work Phone: 1(419)291-[address] [place], [place] 5646404-24-2025 11:00-0400Diastolic blood uhzlupcs39 mm[Hg]Moriah Cardenasnga PA-C Work Phone: 1(877)581-[address] [place], [place] 5646404-24-2025 11:00-0400Heart rate 84 /minMoriah Cardenasnga PA-C Work Phone: [phone] [place], [place] 5646404-24-2025 11:00-6209WxS9% (BldA) [Mass fraction]100 %Moriha Cardenasnga PA-C Work Phone: 1(982)548-[address] [place], [place] 5646404-24-2025 11:00-0400Systolic blood wunptdth069 mm[Hg]Moriah Cardenasnga PA-C Work Phone: [phone] [place], [place] 5646401-31-2025 15:32-0500Body cpaqmr495.9 cmRiddhi Plata MD Work Phone: [phone] HospitalQqwrkoqskp96-77-6868 15:32-0500Body mass index (BMI) [Ratio]50.26 kg/m2Riddhi Plata MD Work Phone: [phone] HospitalQsqjcuogjv98-60-3788 15:32-0500Body pncnef838.66 kgRiddhi Plata MD Work Phone: [facility] HospitalHrmcfovuaj87-79-1431 15:32-0500Diastolic blood sfzfidgb89 mm[Hg]Riddhi Plata MD Work Phone: [facility] HospitalMaoazjcsma05-40-8966 15:32-0500Heart rate91 /min Riddhi Plata MD Work Phone: [facility] HospitalWvapnzzkal75-33-2262 15:32-0500Respiratory rate18 /minRiddhi Plata MD Work Phone: [facility] HospitalNgeqhjlufz39-61-2328 15:32-8810KgX5% (BldA) [Mass fraction]97 %Riddhi Plata MD Work Phone: [facility] HospitalPlsyvkmtnt31-28-6009 15:32-0500Systolic blood tqattgyp683 mm[Hg]Riddhi Plata MD Work Phone: 1(419)355-[address] [place], [place] [address]Nokgmruksv54-16-3856 08:16-0500Body nsthfi771.9 cmRiddhi Plata MD Work Phone: 1(101)[address] [place], [place] 9836512-16-2024 08:16-0500Body mass index (BMI) [Ratio]53.81 kg/m2Riddhi Plata MD Work Phone: 1(137)[address] [place] [address]-16-2024 08:16-0500Body hvovhc725.18 kgRiddhi Plata MD Work Phone: 1(237)[address] [place], [place] 9836512-16-2024 08:16-0500Diastolic blood dbpnfxvi76 mm[Hg]Riddhi Plata MD Work Phone: 1(723)[address] [place], [place] 9836512-16-2024 08:16-0500Heart rate86 /min Riddhi Plata MD Work Phone: 1(563)[address] [place] [address]-16-2024 08:16-0500Respiratory rate18 /minRiddhi Plata MD Work Phone: 1(836)[address] [place], [place] 9836512-16-2024 08:16-6695CnN9% (BldA) [Mass fraction]98 %Riddhi Plata MD Work Phone: 1(790)[facility] [address] [place], [place] [address]Uaucdminlm07-82-2287 08:16-0500Systolic blood gtthofdo782 mm[Hg]Riddhi Plata MD Work Phone: 1(416)[facility] [address] [place], [place] [address]Ukqoejljew70-27-3149 15:47-0400Body dufeja530.9 cmRiddhi Plata MD Work Phone: 1(133)[address] [place], [place] 9836510-03-2024 15:47-0400Body mass index (BMI) [Ratio]60.27 kg/m2Riddhi Plata MD Work Phone: 1(515)[facility] [address] [place], [place] [address]Ojqkghnqvr07-35-3929 15:47-0400Body .7 kgRiddhi Plata MD Work Phone: 1(148)[address] [place], [place] 9836510-03-2024 15:47-0400Respiratory rate18 /minRiddhi Plata MD Work Phone: 1(045)[address] [place], [place] 9836509-25-2024 10:00-0400Body .[address] [facility]09-25-2024 10:00-0400Body mass index (BMI) [Ratio]60.95 kg/p3UfhgbtaJenny Moise [facility]09-25-2024 10:00-0400Body mtcgbe193.33 kgJenny [facility]08-22-2024 12:07-0400Body rarclv664.9 cmMattblair Manzo MD Work Phone: [phone])[address] [place], [place] [address]Comment on above:5'1 05-01-2024 12:07-0400Body mass index (BMI) [Ratio]63.86 kg/r8ZqeokisTonia Manzo MD Work Phone: 1(778)[address] [place], [place] 9355208-22-2024 12:07-0400Body owrxxy391.32 kgTonia Manzo MD Work Phone: 1(811)[address] [place], [place] 9355208-22-2024 12:07-0400Diastolic blood laxxtruo62 mm[Hg]Tonia Manzo MD Work Phone: 1(999)[address] [place], [place] 9355208-22-2024 12:07-0400Heart rate 108 /minMattblair Manzo MD Work Phone: 1(920)[address] [place], [place] 9355208-22-2024 12:07-0400Systolic blood mm[Hg]Tonia Manzo MD Work Phone: 1(631)[address] [place], [place] 9355208-15-2024 08:54-0400Body fueqco592.9 cmTonia Manzo MD Work Phone: 1(737)[address] [place], [place] 9355208-15-2024 08:35-0400Body zcfsefaneun22.2 [degF]Tonia Manzo MD Work Phone: 1(537)[address] [place], [place] 9355208-15-2024 08:35-0400Diastolic blood yulftxku56 mm[Hg]Tonia Manzo MD Work Phone: 1(908)[address] [place], [place] 9355208-15-2024 08:35-0400Heart rate 52 /minMattblair Manzo MD Work Phone: [facility]08-15-2024 08:35-0400 Respiratory rate20 /minTonia Manzo MD Work Phone: [facility]08-15-2024 08:35-5588EuL9% (BldA) [Mass fraction]98 %Tonia Manzo MD Work Phone: 1(652)503-[facility]08-15-2024 08:35-0400Systolic blood mm[Hg]Tonia Manzo MD Work Phone: 1(610)187-[facility]08-15-2024 08:30-0400Body mass index (BMI) [Ratio]66.9 kg/d0FupvdtgTonia Manzo MD Work Phone: 1(066)477-[facility]08-15-2024 08:30-0400Body rdetkh757.6 kgTonia Manzo MD Work Phone: 1(333)171-[facility]08-06-2024 08:49-0400Body fvmtov986.[address]08-06-2024 08:49-0400Body mass index (BMI) [Ratio]67.98 kg/g3Hhyst[address]08-06-2024 08:49-0400Body wvntrjvqarl87.2 [degF][address]08-06-2024 08:49-0400Body caxltp452.[address]08-06-2024 08:49-0400Diastolic blood pyifcqjp26 mm[Hg][address]08-06-2024 08:49-0400Heart rate 76 /min[address]08-06-2024 08:49-0400Respiratory rate18 /min[address]08-06-2024 08:49-4914PrO7% (BldA) [Mass fraction]97 %[address]08-06-2024 08:49-0400Systolic blood ezsoluzw262 mm[Hg][address]07-18-2024 13:33-0400Body height 157.5 cmMattblair Manzo MD Work Phone: [facility] Pxudzx20-64-9994 13:33-0400Body mass index (BMI) [Ratio]65.43 kg/i7Xjnxxmylionel Manzo MD Work Phone: [facility] Kiqbyi59-86-1657 13:33-0400Body jhmnex817.3 kgMattblair Manzo MD Work Phone: [phone])430[facility]07-18-2024 13:33-0400Diastolic blood ifaorefq60 mm[Hg]Tonia Manzo MD Work Phone: 1(750)668-[facility] Lwutqv91-20-7291 13:33-0400Heart rate 76 /minMattblair Manzo MD Work Phone: [phone] Zunyau71-30-6215 13:33-0400 Respiratory rate16 /minMattblair Manzo MD Work Phone: [phone])430[facility] Ppphup80-41-0780 13:33-0400Systolic blood hohohwni803 mm[Hg]Tonia Manzo MD Work Phone: 1([phone]07-08-2024 08:27-0400Body uikmbo411.5 April Venegas MD Work Phone: [facility] Oucjxf46-51-6739 08:27-0400Body mass index (BMI) [Ratio]66.94 kg/n2CletohCr Venegas MD Work Phone: [facility] Yawwqj65-18-0577 08:27-0400Body gdhedx108.02 kgCr Venegas MD Work Phone: [facility] Ilftyb14-97-9295 08:27-0400Diastolic blood mm[Hg]Cr Venegas MD Work Phone: [facility] Qakkax55-40-8021 08:27-0400Heart rate 80 /minCr Venegas MD Work Phone: 1(223)176-[address] [place], [place] 9825007-08-2024 08:27-7393GyE9% (BldA) [Mass fraction]97 %Cr Venegas MD Work Phone: 1(372)[address]07-08-2024 08:27-0400Systolic blood guuqrsqh413 mm[Hg]Cr Venegas MD Work Phone: 1(026)[address]06-27-2024 13:00-0400Body mass index (BMI) [Ratio]66.21 kg/s0Dctiedd [facility]06-27-2024 13:00-0400Body mvvugn841.2 kgShannon [facility]05-30-2024 13:00-0400Body mass index (BMI) [Ratio]66.76 kg/t6Myefrmt [facility]05-30-2024 13:00-0400Body .56 kgShannon [facility]04-24-2024 12:00-0400Body mass index (BMI) [Ratio]65.41 kg/m2 Jenny [facility]04-24-2024 12:00-0400Body gxvekn047.21 kg Jenny [facility]03-27-2024 13:00-0400Body mass index (BMI) [Ratio]65.92 kg/r0Gxeyqtm [facility]03-27-2024 13:00-0400 Body oppvte601.48 kgShannon [facility]02-29-2024 11:00-0500 Body mass index (BMI) [Ratio]65.66 kg/u6Uszcycp [facility] 11-08-2023 11:00-0500Body .84 kgannon [facility] 10-10-2023 07:53-0500Body cgcekj742.9 cmTheodora Early MD Work Phone: 1(745)579-[address] [place], [place] 9825001-31-2024 07:53-0500Body mass index (BMI) [Ratio]68.4 kg/w6WxbwhpTheodora Early MD Work Phone: [facility] Iljiwg35-91-6951 07:53-0500Body riaetc438.2 kgTheodora Early MD Work Phone: 1(481)191-[address] [place] [address] [facility] Tiogkh38-56-5975 07:53-0500Diastolic blood dlfipmba88 mm[Hg]Theodora Early MD Work Phone: 1(202)697-[address] [place] [address] [facility] Lncyys51-03-2850 07:53-0500Heart rate 78 /minTheodora Early MD Work Phone: 1(391)835-[address] [place] [address] [facility] Uvrnlq40-21-9848 07:53-4431XfY1% (BldA) [Mass fraction]97 %Theodora Early MD Work Phone: 1(145)782-[address] [place], [place] 9825001-31-2024 07:53-0500Systolic blood csbavsnc947 mm[Hg]Theodora Early MD Work Phone: 1(564)838-[address] [place], [place] 9825001-30-2024 11:00-0500Body mass index (BMI) [Ratio]67.38 kg/r0Lhkpjqg [facility]01-30-2024 11:00-0500Body lwtjku896.[address] [facility]01-18-2024 11:41-0500Body nhgwha460.9 cmSradha Vidal DO Work Phone: [facility]01-18-2024 11:41-0500Body mass index (BMI) [Ratio]67.85 kg/v7Dodjkt Marcy DO Work Phone: [facility] Usgejh15-65-9877 11:41-0500Body .89 kgJalyn Lomaston DO Work Phone: [facility] Hixcqq56-08-5321 11:41-0500Diastolic blood mm[Hg]Jalynbismark Vidal DO Work Phone: [facility] Ahbsnk95-35-9156 11:41-0500Heart rate 68 /minSradha Marcy DO Work Phone: [facility]01-18-2024 11:41-3519ZnD7% (BldA) [Mass fraction]98 %Jalyn Vidal DO Work Phone: [facility]01-18-2024 11:41-0500Systolic blood skkzrzxa935 mm[Hg]Jalyn Vidal DO Work Phone: [facility]12-28-2023 11:00-0500Body mass index (BMI) [Ratio]67.17 kg/s8Qinfuie [facility]12-28-2023 11:00-0500Body .[address] [facility]03-28-2022 15:29-0400Body ycxxzu339.9 cmDuarte Sosa MD Work Phone: [facility] CenterSzoihc52-44-1172 15:29-0400Body mass index (BMI) [Ratio]51.51 kg/s8BkaveurDuarte Sosa MD Work Phone: [facility] CenterSeulmc58-75-9366 15:29-0400Body wdushhpadpd87.01 [degF]Duarte Sosa MD Work Phone: [place] [phone] 15:29-0400Body .65 kg Duarte Sosa MD Work Phone: [facility] CenterAzjlzc00-41-6972 15:29-0400Diastolic blood bzkuzswq11 mm[Hg]Duarte Sosa MD Work Phone: [place] [phone] 15:29-0400Heart rate62 /min Duarte Sosa MD Work Phone: [place] [phone] 15:29-0400Respiratory rate14 /minDuarte Sosa MD Work Phone: [place] [phone] 15:29-4501MmX3% (BldA) [Mass fraction]100 %Duarte Sosa MD Work Phone: [place] [address]Yuwsip23-27-6299 15:29-0400Systolic blood antuavji608 mm[Hg]Duarte Sosa MD Work Phone: [place] [phone] 15:11-0400Diastolic blood mmfeoitu72 mm[Hg]Gunjan Valentino DO Work Phone: 1(703)534-[address] [place], [place] [address]Xorjrp96-06-8763 15:11-0400Heart rate77 /min Gunjan Valentino DO Work Phone: 1(799)010-[address] [place] [address]-24-2022 15:11-0400Systolic blood dmdheciz615 mm[Hg]Gunjan Valentino DO Work Phone: 1(389)681-[address] [place] [address]-24-2022 04:14-0400Body .1 [degF]Gunjan Valentino DO Work Phone: 1(503)887-[address] [place] [address]-24-2022 04:00-0400Respiratory rate20 /minGunjan Valentino DO Work Phone: 1(218)472-[address] [place] [address]-24-2022 04:00-0214AuK4% (BldA) [Mass fraction]95 %Gunjan Valentino DO Work Phone: 1(558)231-[address] [place] [address]-24-2022 00:00-0400Body zbnuze600.9 cm Gunjan Valentino DO Work Phone: 1(486)857-[address] [place] [address]-24-2022 00:00-0400Body mass index (BMI) [Ratio]52.72 kg/w4BffwrvotGunjan Valentino DO Work Phone: 1(426)334-[address] [place] [address]-24-2022 00:00-0400Body qtuhxi701.55 kg Gunjan Valentino DO Work Phone: 1(765)172-[address] [place] [address]-22-2022 09:58-0400Diastolic blood uvsmfray65 mm[Hg]Marielos Torres MD Work Phone: 1(983)481-[address] [place] [address]-22-2022 09:58-0400Heart rate84 /min Marielos Torres MD Work Phone: 1(333)407-[address] [place] [address]-22-2022 09:58-0400Respiratory rate18 /minMarielos Torres MD Work Phone: 1(419)[address] [place] [address]-22-2022 09:58-0400Systolic blood mm[Hg]Marielos Torres MD Work Phone: 1(067)[address] [place] [address]-22-2022 08:01-0400Body etvgwguujaa50.9 [degF]Marielos Torres MD Work Phone: 1(439)[address] [place] [address]-21-2022 08:00-1541MiQ1% (BldA) [Mass fraction]95 %Marielos Torres MD Work Phone: 1(669)[address] [place] [address]-19-2022 06:15-0400Body nmoijo366.9 cm Marielos Torres MD Work Phone: 1(330)[address] [place] [address]-19-2022 06:15-0400Body mass index (BMI) [Ratio]54.8 kg/q6KgbohcdsMarielos Torres MD Work Phone: 1(250)[address] [place] [address]-19-2022 06:15-0400Body hpdsvo051.54 kg Marielos Torres MD Work Phone: 1(718)[address] [place] [address]-19-2022 01:00-0400Diastolic blood daydgfit21 mm[Hg]Tonia Lani DO Work Phone: 1(106)[address] [place] [address]-19-2022 01:00-0400Heart rate73 /min Tonia Lani DO Work Phone: 1(999)[address] [place] [address]-19-2022 01:00-0400Respiratory rate28 /minMatthew Lani DO Work Phone: 1(716)[address] [place] [address]-19-2022 01:00-2099TgL0% (BldA) [Mass fraction]96 %Tonia Lani DO Work Phone: 1(178)[address] [place] [address]-19-2022 01:00-0400Systolic blood hvwuhcfb067 mm[Hg]Tonia Lani DO Work Phone: 1(949)[address] [place] [address]-18-2022 18:54-0400Body zpmzji665.9 cm Tonia Lani DO Work Phone: [address] [place] [address]-18-2022 18:54-0400Body mass index (BMI) [Ratio]54.8 kg/e1Lqbsqtg Lani DO Work Phone: AdspringrRpwerx61-02-6543 18:54-0400Body yttbtceiutb59.2 [degF]Tonia Lani DO Work Phone: AdspringrRcgdsw27-99-3898 18:54-0400Body zpbqib170.54 kg Tonia Garibay DO Work Phone: [facility] Encounters Encounter DateEncounter TypeCare ProviderFacilityStart: 07-01-2025 End: 42-76-7896Xeykmbkxe Result EncounterGeneric External Data ProviderNOMS External Department UnsolicitedStart: 07-01-2025 End: 03-75-6649Egsbvcqgd Result EncounterGeneric External Data ProviderNOMS External Department UnsolicitedStart: 06-25-2025 End: 42-20-0032Ifjcsj OnlyAmy Edwige LPNMaternal- Medicine at [facility] CenterComment on above:History of gestational diabetes in prior , currently in second trimester (PrimaryDx); History of prediabetes; History of gestational diabetes in prior , currently Start: 06-24-2025 End: 67-56-7653Duwedgmn flow sheetWinter BURTON Work Phone: NOFS Ines OBGYNComment on above:Gallstones and inflammation of gallbladder without obstruction (Primary Dx); Second trimester ([facility]-HCC); 23 weeks gestation of ([facility]); History of diet controlled gestational diabetes mellitus (GDM); Preeclampsia in period ([facility]); History of pulmonary embolism; Primary hypertension; Diabetes mellitus screeningStart: 06-24-2025 End: 46-76-6509hvcedjnctwCGJ RAMEYNot AvailableStart: 06-23-2025 End: 65-66-0602vsgtumshccHNOC F [facility] HospitalStart: 06-22-2025 End: 00-90-5397Myyavwryl encounterAmy Edwige LPNMaternal- Medicine at [facility]ertart: 06-17-2025 End: 06-20-6740Ijwgltebd encounterWinter Gibbons LPNMaternal- Medicine at [facility] Centertart: 06-17-2025 End: 55-51-1357Nxicjafhx department patient visitRIDDHI Buenrostroca [facility] HospitalStart: 06-10-2025 End: 41-52-4863Znyfjc flowsSagar Spicer CAP AND STUD MACHINE OPERATOR Work Phone: NO Ines OBGYNStart: 06-10-2025 End: 46-40-3593Ckvrry flowsheetNed Spicer CAP AND STUD MACHINE OPERATOR Work Phone: NOYZ Ines OBGYNStart: 06-10-2025 End: 37-78-2101Mtpenypnm Result EncounterNed Spicer NP Work Phone: NONA External Department UnsolicitedStart: 06-10-2025 End: 55-97-3718Eusqkfi encounter procedureNed Spicer NP Work Phone: NOMS HealthcareStart: 06-10-2025 End: 47-22-3011Vhgzyjex flow sheetNed Spicer CAP AND STUD MACHINE OPERATOR Work Phone: noMS Ines OBGYNComment on above:21 weeks gestation of ([facility]); Well woman exam; Second trimester ([facility]); Screen for STD (sexually transmitted disease); Well woman exam with routine gynecological exam; Diabetes mellitus screening; Iron deficiency anemia, unspecified iron deficiency anemia typeStart: 06-10-2025 End: 30-22-5798mwxfipjigkJNCBVQWW EBERLYNot AvailableStart: 06-08-2025 End: 87-26-6784Rhxrmn Caitlin Pratt MD Work Phone: [phone]-Dzaaf Medicine at [facility] Comment on above:History of Bonnie-en-Y gastric bypass; Postsurgical malabsorption; Malnutrition following gastrointestinal surgery; Folate deficiency; Iron deficiencyStart: 05-29-2025 End: 56-61-1963Rtvyqm consultation new/estab patient 80 Kelley Pratt MD Work Phone: Qawqhfoh-Ormch Medicine at [facility] Comment on above:History of maternal pulmonary embolus (Primary Dx); 20 weeks gestation of ; Chronic hypertension affecting ; History of pre-eclampsia in prior , currently in second trimester; History of gestational diabetes in prior , currently in second trimester; History of prediabetes; Bariatric surgery status complicating , second trimester; Severe obesity due to excess calories affecting , antepartum ([facility]); Obstructive sleep apnea; History of gestational diabetes in prior , currently ; Depression affecting ; Anxiety disorder affecting , antepartumStart: 05-29-2025 End: 79-58-1144Ukdojz OnlyAmy Van Vleck LPNMaternal- Medicine at [facility] CenterComment on above:20 weeks gestation of (Primary Dx); [...] Anxiety disorder affecting , antepartumStart: 05-28-2025 End: 91-30-7444Mwuzw Arthur Pratt MD Work Phone: [phone]-Xuvoa Medicine at [facility] Start: 05-25-2025 End: 92-65-9902HsadcoVtqj F Bower MD Work Phone: [facility] HospitalComment on above:Anxiety Start: 05-14-2025 End: 00-15-9433Yajlgnv encounter procedureNed Spicer NP Work Phone: [facility] Work Phone: Start: 05-14-2025 End: 44-05-2246Unnhghmq flow sheetNed Spicer NP Work Phone: noms Ines OBGYNComment on above:Well woman exam with routine gynecological exam; Screening, , for anatomic survey ([facility]); Second trimester ([facility]); 17 weeks gestation of ([facility]); Vaginal discharge; STD exposureStart: 05-14-2025 End: 76-14-6505zujtgptjenYSNGIBQY EBERLYNot AvailableStart: 04-20-2025 End: 84-80-8365Vutfqm flowsheetCorey Carmen DO Work Phone: NOMS Ines OBGYNStart: 04-20-2025 End: 41-51-0722Pwwbkb flowsheetCorey Carmen DO Work Phone: [facility] [place] OBGYNStart: 04-20-2025 End: 92-84-0145Uqdjfmqj flow sheetCorey Carmen DO Work Phone: [facility] Ines OBGYNComment on above:Second trimester ([facility]); 14 weeks gestation of ([facility]); Primary hypertension ; H/O gastric bypass; History of diet controlled gestational diabetes mellitus (GDM); Diabetes mellitus screeningStart: 04-20-2025 End: 07-98-2125qgmtqpnygpFOUSA FAZIONot AvailableStart: 03-25-2025 End: 58-17-1722Ekrfkiitx Result EncounterGeneric External Data ProviderNOMS External Department UnsolicitedStart: 03-25-2025 End: 66-22-8872Yecocjwxm Result EncounterGeneric External Data ProviderNOMS External Department UnsolicitedStart: 03-20-2025 End: 87-23-7702Qlwvcb outpatient visit 5 minutesCarmen Nurse [facility] Bcp ObNOMS BCP OBComment on above:GA: 43n8pLzxiy: 03-20-2025 End: 76-33-5360lfdpuqcniwJGXG BOWERNot AvailableStart: 01-01-2025 End: 31-13-6047Eopszj outpatient visit 25 minutesTonia Manzo MD Work Phone: [facility] Surgery-BariatricComment on above:History of Bonnie-en-Y gastric bypass (Primary Dx); Postsurgical malabsorption; Malnutrition following gastrointestinal surgery; History of anemia; B12 deficiencyStart: 01-01-2025 End: 96-62-8280eushsaspxvJCHZKZLP M HOITENGAProMedOhioHealth Van [facility]ert Hospital HospitalStart: 01-01-2025 End: 30-92-3747iffycdkyebNGAUWL L [facility] HospitalStart: 12-15-2024 End: 63-74-7977Pqnqbvbpi department patient visitRIDDHI Mcdaniel B[facility]IWood County Hospital HospitalStart: 10-30-2024 End: 66-44-4931HbiomdSamantha Stallworth RN Work Phone: [facility] General Surgery-BariatricComment on above:Malnutrition following gastrointestinal surgery (Primary Dx); Postsurgical malabsorption; H/O gastric bypass; History of anemiaStart: 10-10-2024 End: 90-08-8352Dkwier outpatient visit 15 minutesRiddhi Plata MD Work Phone: noms FNR FMComment on above:Influenza A (Primary Dx); Fever, unspecified fever causeStart: 10-10-2024 End: 96-16-3268fwqkmjmutwRKYB F BOWERNot AvailableStart: 10-10-2024 End: 21-32-2135Kujoog Gallo Plata MD Work Phone: noms FNR FMStart: 10-10-2024 End: 38-96-6177Jbuhww Gallo Plata MD Work Phone: [facility] FNR FMStart: 08-25-2024 End: 06-13-1642Sthwkd Gallo Plata MD Work Phone: NOIF FNR FMStart: 08-25-2024 End: 32-67-4909Ydfumv Gallo Plata MD Work Phone: [facility] FNR FMStart: 08-25-2024 End: 99-06-9582Dskpbs outpatient visit 15 minutesRiddhi Plata MD Work Phone: noms FNR FMComment on above:Non-recurrent acute serous otitis media of left ear (Primary Dx); Bariatric surgery status; Vitamin D deficiency; Iron deficiency anemia, unspecified iron deficiency anemia typeStart: 08-25-2024 End: 96-02-9315jtuvfkjdyiOEKG F BOWERNot AvailableStart: 06-12-2024 End: 90-37-9863Umjijs outpatient visit 15 minutesRiddhi Plata MD Work Phone: noms FNR FMComment on above:Acute cystitis with hematuria (Primary Dx); DysuriaStart: 06-12-2024 End: 35-98-4891Oijaej Gallo Plata MD Work Phone: noms FNR FMStart: 06-12-2024 End: 40-63-4628Vfhwte Gallo Plata MD Work Phone: noms FNR FMStart: 06-04-2024 End: 51-64-2016QwohafvmzaIst [facility] B95HotDguigjYuma District Hospital Surgery-BariatricStart: 06-04-2024 End: 15-12-6370Lzimtilsj to same day surgery stockvilleTonia Manzo MD Work Phone: [facility] DieticiansComment on above: Dietary counseling and surveillance (Primary Dx); Malnutrition following gastrointestinal surgery; Postsurgical malabsorption; H/O gastric bypassMalnutrition following gastrointestinal surgery (Primary Dx); Postsurgical malabsorption; H/O gastric bypass; B12 deficiencyStart: 05-01-2024 End: 26-50-2014Ocazvncfr to same day surgery [facility] Hospitalrobert Moise [facility] DieticiansComment on above:Dietary counseling and surveillance (Primary Dx); Morbid obesity ([facility]); Malnutrition following gastrointestinal surgery; Postsurgical malabsorptionStart: 05-01-2024 End: 89-94-7094Cxsovj follow up visit related to original pxTonia Manzo MD Work Phone: [facility]-BariatricComment on above:LUCIANO on CPAP (Primary Dx); H/O gastric bypass; Postoperative malabsorption; Malnutrition following gastrointestinal surgeryStart: 04-27-2024 End: 79-15-8860Qgzjynixn encounterShayy Alonso [facility] Comment on above:bloody mocusStart: 04-23-2024 End: 08-81-9740Fpwvourtey and management of inpatientMalionel Manzo MD Work Phone: [phone] AcuteComment on above:Class 3 severe obesity due to excess calories with serious comorbidity and body mass index (BMI) of60.0 to 69.9 in adult ([facility]) (Primary Dx); History of pulmonary embolism; Acute post-operative painStart: 04-17-2024 End: 39-22-2078Xsfurwexo encounterNilam Stallworth RN Work Phone: [facility] Surgery-BariatricStart: 04-15-2024 End: 02-21-3647Odnkvu outpatient visit 5 minutesWlc [facility] Surg NurseProLake Martin [facility] Physicians General Surgery-BariatricComment on above:Morbid obesity with BMI of 60.0-69.9, adult ([facility]) (Primary Dx)Start: 04-15-2024 End: 04-57-1811Ebmvfo OnlyNilam Stallworth RN Work Phone: [facility] General Surgery-BariatricComment on above:Preop testing (Primary Dx)Pre-op testing (Primary Dx)Start: 04-15-2024 End: 99-95-4536Olibrdo encounter statusNilam Stallworth RN Work Phone: [facility] Work Phone: start: 03-27-2024 End: 00-92-7373Ilvfbz outpatient visit 10 minutesTonia Manzo MD Work Phone: [facility] Phys[facility] General Surgery-BariatricComment on above:PONV (postoperative nausea and vomiting) (Primary Dx); Unable to assess patient's smoking status within the last 12 months; Constipation, unspecified constipation type; Vitamin D deficiency; Chronic RUQ painStart: 03-17-2024 End: 12-88-2446Ykxtim consultation new/estab patient 40 Sylwia Bhandari MD Work Phone: [facility] Physicians CardiologyComment on above:Preop cardiovascular exam (Primary Dx)Start: 03-17-2024 End: 24-58-0780Cpdcaun encounter Bryn Bhandari MD Work Phone: [facility] access hospitaltart: 03-12-2024 End: 62-42-1598Faxyglhrb encounterMercedhaydee Ruiz [facility] Physicians CardiologyStart: 03-06-2024 End: 65-14-6405Pdvguoloobkw consultation with [facility] DieticiansComment on above:Pre-bariatric surgery nutrition evaluation (Primary Dx); Morbid obesity ([facility])Start: 02-07-2024 End: 98-45-7243Lqswaselynpi consultation with [facility] DieticiansComment on above:Pre-bariatric surgery nutrition evaluation (Primary Dx); Morbid obesity ([facility])Start: 01-17-2024 End: 82-26-2387Vfweej OnlyIsa MetcalfMercy Medical Center Physicians General Surgery-BariatricComment on above:Preop testing (Primary Dx)Start: 01-17-2024 End: 78-80-7861Lvktwot encounter statusNortheast Regional Medical Centerjessica [facility] Start: 01-02-2024 End: 41-39-6041Sdaymuikg to same day surgery [facility] DieticiansComment on above:Pre-bariatric surgery nutrition evaluation (Primary Dx); Morbid obesity ([facility])Start: 99-28-4397Emxaqeu encounter procedureMadismateo DaveyAdventHealth Parker - Food ClinicStart: 12-05-2023 End: 00-62-7732Bpdggqmkj to same day surgery [facility] DieticiansComment on above:Pre-bariatric surgery nutrition evaluation (Primary Dx); Morbid obesity ([facility])Start: 11-08-2023 End: 30-03-0153Ahfktckrr to same day surgery [facility] DieticiansComment on above:Pre-bariatric surgery nutrition evaluation (Primary Dx); Morbid obesity ([facility])Start: 10-10-2023 End: 26-25-5091Chndpq outpatient new 30 minutesPatel Alcaraz MD Work Phone: [facility] Physicians CardiologyComment on above:Preop testing (Primary Dx); LUCIANO on CPAP; History of pulmonary embolism; Class 2 severe obesity due to excess calories with serious comorbidity in adult, unspecified BMI ([facility]); Essential hypertensionStart: 10-10-2023 End: 78-20-7606Udkmcus encounter statusPatel Alcaraz MD Work Phone: [facility] SystemStart: 35-04-8323Lkjwcynhk encounterAnne Ruiz [facility] HospitalMeditn Physicians CardiologyStart: 10-09-2023 End: 67-43-1989Pnqmfpbrq to same day surgery [facility] DieticiansComment on above:Pre-bariatric surgery nutrition evaluation (Primary Dx); Morbid obesity ([facility])Start: 09-27-2023 End: 01-56-0835mxltzdmxvgQWGSNYNorthwest Medical Center Ambulatory PPGStart: 09-27-2023 End: 04-65-8774Pvkjla outpatient visit 10 minutesU[facility] Work Phone: [facility] Physicians Pulmonary/Sleep MedicineComment on above:Mild intermittent asthma, unspecified whether complicated (Primary Dx); LUCIANO on CPAPStart: 24-77-5130Joacy abstractingScanning Provider [facility] CardiologyStart: 09-06-2023 End: 67-88-4769Xsfjbjkkp to same day surgery [facility] DieticiansComment on above:Pre-bariatric surgery nutrition evaluation (Primary Dx); Morbid obesity ([facility])Start: 09-06-2023 End: 74-77-4261lcztmnxhrnErlxhjpMemorial [facility] Dieticians Start: 11-03-2022 End: 87-79-3070graxmjidheRT BIN MORALES .Facility:O9Yuqra: 97-71-5752Brmcjsbkr for other preprocedural examinationDR BIN MORALES .[facility] HospitalStart: 74-30-4803Ppbuozmhq for preprocedural cardiovascular examinationDR BIN MORALES . [facility] Centertart: 10-24-2022 End: 20-56-8474ctbivtuentPY BIN CARMEN .Facility:P1Geeon: 10-24-2022 End: 70-84-7543Duijwvkyz for other preprocedural examinationDR BIN CARMEN . Facility:R8Sbknw: 09-26-2022 End: 82-93-4495nxbawgzapsZK ASHLEY V WESTFacility:M0Fjtdp: 76-00-8999izbrykainoLX BIN CARMEN .Facility:A3Lkhwc: 86-73-7828mczxmogqwlXP BIN CARMEN .Facility:H1 Start: 07-01-2022 End: 04-63-2967gldyxetcccPR ASHLEY V WESTFacility:I6Ugwql: 06-27-2022 End: 03-17-9471eqtcyauwalKP BIN CARMEN .Facility:I4Dagyd: 12-05-2021 End: 24-66-2225Gtlgrhzrh department patient visitDUARTE SOSALouis Stokes Cleveland VA Medical Centertart: 12-05-2021 End: 38-71-1307Iqhgwgpdk department patient visitDuarte Sosa MD Work Phone: [facility] EDComment on above:Shortness of breath (Primary Dx)Start: 11-30-2021 End: 57-52-2428Pgosuseuwa and management of inpatientZAINULABEDIN WAQARMercy Lourdes Medical Centertart: 11-30-2021 End: 54-80-3218Euaxfviwuc and management of inpatientAngeline Maria Elena Valentino DO Work Phone: ST[facility] CVICUComment on above:Acute pulmonary embolism, unspecified pulmonary embolism type, unspecified whether acute cor pulmonale present (HCC) (Primary Dx)Start: 11-26-2021 End: 79-32-7960Btjwtmygyh and management of inpatientCHRISTOPHER LAMONTE NICOLEOhioHealth Marion General Hospitaltart: 11-26-2021 End: 72-92-4075Mljplqditq and management of inpatientCooneal Torres MD Work Phone: STV[facility] 7A Labor & DeliveryComment on above:Preeclampsia in period (Primary Dx)Start: 11-25-2021 End: 79-70-1695Oiqumuojo department patient visitMATTHEW SYVERSONKettering Health – So[facility] HospitalStart: 11-25-2021 End: 35-12-8694Xljhdezzb department patient visitMatthew Lani DO Work Phone: [facility] Olimpia EDComment on above:Preeclampsia in period (Primary Dx)Start: 53-68-6770xvfskxovkkHV BIN MORALES . Facility:W2Nvnme: 11-20-2021 End: 43-59-7495Yvvxdncudr and management of inpatientDR CLARKE SCHUMACHER . Facility:F3Jitjz: 11-17-2021 End: 41-35-1331syeolltdqcQK BIN MORALES .Facility:E5Faqzq: 01-06-2019 End: 18-36-9812Jqlduno encounter procedureDEFAULT PHYSICIANFacility:[facility] Procedures DateProcedureProcedure DetailPerforming ClinicianStart: 30-65-4191DFZ HEMOGLOBIN K1NIijuhte External Data ProviderStart: 90-40-3222Olbee dip stick/tablet rgnt non-auto w/o micrscpKristina Dannielle CAP AND STUD MACHINE OPERATOR Work Phone: Start: 84-03-5565PTZ,APTIMA HPV,AGE GDLNGeneric External Data ProviderStart: 35-98-7206Twkduunmqri observation [Identifier] in Cervix by Cyto stainWinter BURTON Work Phone: Start: 69-39-2748Hxsqe dip stick/tablet rgnt non-auto w/o micrscpKristina Dannielle CAP AND STUD MACHINE OPERATOR Work Phone: Start: 73-43-3364Bnwzv dip stick/tablet rgnt non-auto w/o micrscpCorey Carmen DO Work Phone: Start: 34-25-9131Wzxtpoigbrittany Pratt MD Work Phone: Start: 80-22-2141Ybvep metabolic panel calcium total Bin R Carmen DO Work Phone: Start: 11-51-6613UHS W Auto Differential panel - Blood Bin R Carmen DO Work Phone: Start: 97-95-6828Snmx scrn 1+ class nonchromoNot In System Ref ProvStart: 30-26-2026Rihwgzyln c antibodyNot In System Ref ProvStart: 38-52-9141AWW 1&2 AB/AG SCREEN (P24 AG)Not In System Ref ProvStart: 03-25-2025 Iaad ia hepatitis b surface antigenNot In System Ref ProvStart: 03-25-2025 SYPHILIS TOTAL(UNKNOWN SYPHILIS STATUS)Not In System Ref ProvStart: 03-25-2025 TYPE AND SCREENNot In System Ref ProvStart: 92-87-1670VDZ TESTCorey Carmen DO Work Phone: Start: 72-34-1466Vvgjd dip stick/tablet rgnt non-auto w/o micrscpCorey Carmen DO Work Phone: Start: 13-91-6244Blvdnt-up visitFollow-upKATHLEEN Maria Elena HOITENGAStart: 46-57-1330WFJFQR COVID-19/FLUMary Jonas Plata MD Work Phone: Start: 77-59-2140Zxqgi dip stick/tablet rgnt non-auto w/o micrscpMary Jonas Plata MD Work Phone: Start: 52-04-5738OBL REFERRAL TO NUTRITION SERVICES Tonia Manzo MD Work Phone: Start: 32-62-9420Rflzxkwbth bloodMattblair Manzo MD Work Phone: Start: 04-23-2024 End: 02-80-4927Nynv gstr rstcv px w/byp bonnie-en-y limb <150 cmMattblair Manzo MD Work Phone: Start: 06-74-9445Rdgko test visual color cmprsn methsMattblair Manzo MD Work Phone: Start: 13-10-3251Skzlg depression screening assessment Shayy Alonso RMAStart: 03-77-3916Zmwuj metabolic panel calcium totalOmar Rosa GUERRERO Work Phone: start: 97-66-5905Ajw routine ecg w/least 12 lds w/i&r Cr Venegas MD Work Phone: Start: 07-00-0410Dad routine ecg w/least 12 lds w/i&r Theodora Early MD Work Phone: Start: 96-86-1802Ttl routine ecg w/least 12 lds w/i&r Tonia Isidro Wolfe PA-CStart: 85-47-2454Rnyey metabolic panel calcium totalMatthew Isidro Wolfe PA-CStart: 94-89-1751Fwlwcfypib exam chest single viewMatthew Isidro BURTON-CStart: 67-64-9991Fxwg tthrc r-t 2d w/wom-mode compl spec&colr dNichole Dave ATMOSPHERIC SCIENCES PROFESSOR - ANNEALING TORCH OPERATOR Work Phone: Start: 06-26-2934DBYW-XA, UNFRACTIONATED HEPARINJamie Sergio ATMOSPHERIC SCIENCES PROFESSOR - ANNEALING TORCH OPERATOR Work Phone: Start: 12-01-2021 End: 83-16-1253Qbcfr of magnesiumShirley [facility] ATMOSPHERIC SCIENCES PROFESSOR - ANNEALING TORCH OPERATOR Work Phone: Start: 35-35-6584Zpyhq panelShirley [facility] ATMOSPHERIC SCIENCES PROFESSOR - ANNEALING TORCH OPERATOR Work Phone: Start: 68-11-6886Grtnj count complete automatedShirley [facility] ATMOSPHERIC SCIENCES PROFESSOR - ANNEALING TORCH OPERATOR Work Phone: Start: 25-30-7454Yg thorax w/contrast materialEric Clement ATMOSPHERIC SCIENCES PROFESSOR - ANNEALING TORCH OPERATOR Work Phone: Start: 75-68-0112Mismi of troponin quantitativeEric Clement ATMOSPHERIC SCIENCES PROFESSOR - ANNEALING TORCH OPERATOR Work Phone: Start: 57-18-6919Uhjacnosth microscopic onlyEric Clement ATMOSPHERIC SCIENCES PROFESSOR - ANNEALING TORCH OPERATOR Work Phone: Start: 74-78-5871Pkppu dip stick/tablet rgnt auto w/o microscopyEric Clement ATMOSPHERIC SCIENCES PROFESSOR - ANNEALING TORCH OPERATOR Work Phone: Start: 99-07-1118Lchpnlixht exam chest single viewEric Clement ATMOSPHERIC SCIENCES PROFESSOR - ANNEALING TORCH OPERATOR Work Phone: Start: 11-30-2021 End: 91-72-0318Zbufbxf dehydrogenase ldhEric Clement ATMOSPHERIC SCIENCES PROFESSOR - ANNEALING TORCH OPERATOR Work Phone: Start: 10-00-2002Bry routine ecg w/least 12 lds w/i&r Bandar Clement ATMOSPHERIC SCIENCES PROFESSOR - ANNEALING TORCH OPERATOR Work Phone: Start: 42-62-9222Zi thorax w/contrast materialKrista R Yoan DO Work Phone: Start: 71-06-1539Mfzgopkuaewmb metabolic panelKrista R Yona DO Work Phone: Start: 27-23-4916FLIPC-19, RAPIDMatthew Lani DO Work Phone: Start: 11-25-2021 End: 88-30-2230Dockl metabolic panel calcium totalMatthew Lani DO Work Phone: Start: 31-86-0212Iykxsqn function panelMatthew Lani DO Work Phone: Start: 17-59-8482Srwwpcxcoh microscopic onlyMatthew Lani DO Work Phone: Start: 14-22-1014Thqxt dip stick/tablet rgnt auto w/o microscopyMatthew Lani DO Work Phone: Start: 01-74-2189Hflbwoza of Products of Conception, External ApproachDR BIN MORALES .Start: 65-62-0563Plessbek of Amniotic Fluid, Therapeutic from Products of Conception, Via Natural or Artificial OpeningDR BIN MORALES .Start: 81-69-5265Bitvyhqldrda of Other Hormone into Peripheral Vein, Percutaneous ApproachDR BIN MORALES .History of gastrointestinal tract bypassHistory of Bonnie-en-Y gastric bypassMalionel Manzo MD Work Phone: History of gastrointestinal tract bypassHistory of Bonnie-en-Y gastric bypassEster Pratt MD Work Phone: Plan of Treatment DateCare ActivityDetailAuthorStart: 96-86-1179Dybjpvtak for malignant neoplasm of cervixNOMS HealthcareStart: 56-21-4164Hvvplhfjj for malignant neoplasm of cervixNOMS HealthcareStart: 78-45-8053Ahxjx BMI ScreeningAdult BMI Screening Critical access hospitaltart: 12-68-4986Vooeooy ScreeningTobacco Screening Critical access hospitaltart: 59-41-4276Qipdf BMI ScreeningAdult BMI Screening Critical access hospitaltart: 63-58-5376Tvpgl BMI ScreeningAdult BMI Screening Critical access hospitaltart: 16-65-6785Izhetrw ScreeningTobacco Screening Critical access hospitaltart: 30-67-6898Ejucm BMI ScreeningAdult BMI Screening Critical access hospitaltart: 84-88-6201Zewputk ScreeningTobacco Screening Critical access hospitaltart: 07-09-2025 End: 87-27-3216Qeyhash encounter bxzkhvhuj87/30/2025 11:30 AM EDT Office Visit Maternal- Medicine at [facility] [address] [place] [phone] Sana Lima MD [address], [place] [phone] (Work) [facility] 07-09-2025 End: 98-51-8319Qvsoxpv encounter jpeqirppi58/30/2025 9:45 AM EDT Appointment [facility] [address] [place] [address] [phone] Health US ImagingStart: 07-08-2025 End: 20-17-5828Cycbwyg encounter xhuoadlap59/29/2025 8:30 AM EDT Routine [facility] [place]es [place] [address] [place], [id number] Winter English PA [address] [place] [address] CHEVY [place] OBGYNStart: 06-24-2025 End: 03-77-0965TAE W Auto Differential panel - BloodCBC and differential Lab Routine Diabetes mellitus screening Expected: 06/24/2025 (Approximate), Expires: 06/24/2026[facility] Work Phone: comment on above:Expected: 06/24/2025 (Approximate), Expires: 06/24/2026Start: 06-10-2025 End: 90-80-3677CQX W Auto Differential panel - BloodCBC and differential Lab Routine 21 weeks gestation of ([facility]) Second trimester ([facility]) Expected: 06/10/2025 (Approximate), Expires: 06/10/2026[facility] Comment on above:Expected: 06/10/2025 (Approximate), Expires: 06/10/2026Start: 06-10-2025 End: 61-61-9298Jrlbapmzgr A1c/Hemoglobin.total in BloodHemoglobin A1c Lab Routine 21 weeks gestation of ([facility]) Second trimester ([facility]) Diabetes mellitus screening Expected: 06/10/2025 (Approximate), Expires: 06/10/2026[facility] HealthcareComment on above:Expected: 06/10/2025 (Approximate), Expires: 06/10/2026Start: 06-10-2025 End: 88-44-5651Iqzmgfr encounter procedureNOMS Varela OBGYNComment on above: ArrivedStart: 72-72-7300Cxaqy BMI ScreeningAdult BMI ScreeningPremier Health Atrium Medical Center SystemStart: 05-29-2025 End: 44-12-0994UW MFM with or without consultUS MFM with or without consult Imaging Routine 20 weeks gestation of Chronic hypertensionaffecting History of pre-eclampsia in prior , currently in second trimester History of gestational diabetes in prior , currently in second trimester History of prediabetes Bariatric surgery status complicating , second trimester Severe obesity due to excess calories affecting , antepartum ([facility]) History of maternal pulmonary embolus Obstructive sleep apnea History of gestational diabetes in prior , currently Depression affecting Anxiety disorder affecting , antepartum Expected: 05/29/2025, Expires: 05/29/2026[facility] Work Phone: comment on above:Expected: 05/29/2025, Expires: 05/29/2026Start: 05-29-2025 End: 17-20-4210Blcjqhc encounter procedureMercy Health [facility] Hospital US ImagingStart: 05-14-2025 End: 35-20-4872Vveoz fetoprotein, maternalAlpha fetoprotein, maternal Lab Routine Second trimester ([facility]) 17 weeks gestation of ([facility]) Expected: 05/14/2025 (Approximate), Expires: 11/11/2025[facility] Work Phone: comment on above:Expected: 05/14/2025 (Approximate), Expires: 11/11/2025Start: 05-14-2025 End: 88-77-9530Nvylemy encounter wxexsgtwi67/04/2025 8:30 AM EDT Routine CHEVY TAYLOR [address] [id number] Ned Spicer, CAP AND STUD MACHINE OPERATOR [address] [place] [address] CHEVY CORREIAtart: 59-51-2046Wgernvhwo vaccinationPremier Health Atrium Medical Center SystemStart: 96-61-0737Ambrj BMI Follow Up PlanAdult BMI Follow Up PlanPremier Health Atrium Medical Center SystemStart: 05-01-2025 Adult BMI ScreeningAdult BMI ScreeningPremier Health Atrium Medical Center SystemStart: 05-01-2025 Tobacco ScreeningTobacco ScreeningPremier Health Atrium Medical Center SystemStart: 04-29-1560Tbyds BMI ScreeningAdult BMI ScreeningMain [facility] Center Health SystemStart: 04-23-2025 Depression ScreeningDepression ScreeningPremier Health Atrium Medical Center SystemStart: 04-23-2025 Tobacco ScreeningTobacco ScreeningProMetrohealth [facility] SystemStart: 04-23-2025 End: 72-14-3635Vquwqik encounter xvcyvjusw45/14/2025 8:30 AM EDT Office Visit [facility] [address] [place] [address] Tonia Manzo MD [address] [facility] [address] [place] [address] [facility] Surgery-BariatricStart: 04-20-2025 End: 99-38-8689Yvqdvswjthz of glucose 1 hour after glucose challenge for glucose tolerance testGlucose tolerance, 1 hour Lab Routine Diabetes mellitus screening Expected: 04/20/2025 (Approximate), Ex[facility]: [facility]/2026[facility] Work Phone: comment on above:Expected: 04/20/2025 (Approximate), Expires: 04/20/2026Start: 04-20-2025 End: 54-35-5848Zvverdu encounter procedureNOMS [facility] OBComment on above:Arrived Start: 48-60-5663Rihzl BMI ScreeningAdult BMI ScreeningMain Campus Medical Center Health System Start: 28-76-2586Yvuduku ScreeningTobacco ScreeningPremier Health Atrium Medical Center SystemStart: 04-10-2025 End: 00-92-3358Nwivcdb [Mass/volume] in Serum or PlasmaCalcium Lab Routine History of Bonnie-en-Y gastric bypass Postsurgical malabsorption Malnutrition foll owing gastrointestinal surgery Expected: 04/10/2025 (Approximate), Expires: 04/10/2026[facility] Work Phone: Comment on above:Expected: 04/10/2025 (Approximate), Expires: 04/10/2026Start: 04-10-2025 End: 81-17-3565RZW W Auto Differential panel - BloodCBC auto differential Lab Routine History of Bonnie-en-Y gastric bypass Postsurgical malabsorption Mal nutrition following gastrointestinal surgery Expected: 04/10/2025 (Approximate), Expires: 04/10/2026[facility] SystemComment on above:Expected: 04/10/2025 (Approximate), Expires: 04/10/2026Start: 04-10-2025 End: 85-76-1165VjlaxeChristo romano S Lab Routine History of Bonnie-en-Y gastric bypass Postsurgical malabsorption Malnutrition following gastrointestinal surgery Expected: 04/10/2025 (Approximate), Expires: 04/10/2026[facility] SystemComment on above:Expected: 04/10/2025 (Approximate), Expires: 04/10/2026 Start: 04-10-2025 End: 56-83-1385Ycksfjpznnlmyy vitamin b-12Vitamin B12 Lab Routine History of Bonnie-en-Y gastric bypass Postsurgical malabsorption Malnutritionfollowing gastrointestinal surgery Expected: 04/10/2025 (Approximate), Expires: 04/10/2026 [facility] SystemComment on above:Expected: 04/10/2025 (Approximate), Expires: 04/10/2026Start: 04-10-2025 End: 69-28-6928Xvfyfsox [Mass/volume] in Serum or PlasmaFerritin Lab Routine History of Bonnie-en-Y gastric bypass Postsurgical malabsorption Malnutrition fol lowing gastrointestinal surgery History of anemia Expected: 04/10/2025 (Approximate), Expires: 04/10/2026[facility] SystemComment on above: Expected: 04/10/2025 (Approximate), Expires: 04/10/2026Start: 04-10-2025 End: 48-67-4390StcsoaDowyez Lab Routine History of Bonnie-en-Y gastric bypass Postsurgical malabsorption Malnutrition following gastrointestinal surgery Expected: 04/10/2025 (Approximate), Expires: 04/10/2026[facility] Comment on above:Expected: 04/10/2025 (Approximate), Expires: 04/10/2026Start: 04-10-2025 End: 31-57-7121Arkd and TIBCIron and TIBC Lab Routine History of Bonnie-en-Y gastric bypass Postsurgical malabsorption Malnutrition following gastrointestinal surgery History of anemia Expected: 04/10/2025 (Approximate), Expires:04/10/2026[facility] SystemComment on above:Expected: 04/10/2025 (Approximate), Expires: 04/10/2026Start: 04-10-2025 End: 07-84-4644Meazm panelLiver panel Lab Routine History of Bonnie-en-Y gastric bypass Postsurgical malabsorption Malnutritionfollowing gastrointestinal surgery Expected: 04/10/2025 (Approximate), Expires: 04/10/2026[facility] Comment on above:Expected: 04/10/2025 (Approximate), Expires: 04/10/2026Start: 04-10-2025 End: 47-84-0235Slqcgewsrpz Hormone, intactParathyroid Hormone, intact Lab Routine History of Bonnie-en-Y gastric bypass Postsurgical malabsorption Malnutrition following gastrointestinal surgery Expected: 04/10/2025 (Approximate), Expires: 04/10/2026[facility] SystemComment on above: Expected: 04/10/2025 (Approximate), Expires: 04/10/2026Start: 04-10-2025 End: 19-34-0541Jhlyzun (Vitamin B1), WBThiamin (Vitamin B1), WB Lab Routine History of Bonnie-en-Y gastric bypass Postsurgical malabsorptionMalnutrition following gastrointestinal surgery Expected: 04/10/2025 (Approximate), Expires: 04/10/2026[facility] SystemComment on above:Expected: 04/10/2025 (Approximate), Expires: 04/10/2026Start: 04-10-2025 End: 06-91-6727Zmeeciw A (Retinol)Vitamin A (Retinol) Lab Routine History of Bonnie-en-Y gastric bypass Postsurgical malabsorption Malnutrition following gastrointestinal surgery Expected: 04/10/2025 (Approximate), Expires: 04/10/2026 [facility] SystemComment on above:Expected: 04/10/2025 (Approximate), Expires: 04/10/2026Start: 04-10-2025 End: 82-27-8164Ymfdbvl D 25 hydroxyVitamin D 25 hydroxy Lab Routine History of Bonnie-en-Y gastric bypass Postsurgical malabsorption Malnutrition following gastrointestinal surgery Expected: 04/10/2025 (Approximate), Expires: 04/10/2026 [facility] SystemComment on above:Expected: 04/10/2025 (Approximate), Expires: 04/10/2026Start: 04-10-2025 End: 30-22-4090Tqdz, SerumZinc, Serum Lab Routine History of Bonnie-en-Y gastric bypass Postsurgical malabsorption Malnutritionfollowing gastrointestinal surgery Expected: 04/10/2025 (Approximate), Expires: 04/10/2026[facility] Comment on above:Expected: 04/10/2025 (Approximate), Expires: 04/10/2026Start: 03-20-2025 End: 35-63-2994SKU/RhABO/Rh Lab Routine Missed menses , unspecified gestational age ([facility]) Expected: 03/20/2025 (Approximate), Expires: 03/20/2026[facility] HealthcareComment on above:Expected: 03/20/2025 (Approximate), Expires: 03/20/2026Start: 03-20-2025 End: 24-85-9503Sycjd type and Indirect antibody screen panel - BloodType and screen Lab Routine Missed menses , unspecified gestational age ([facility]) Expected: 03/20/2025 (Approximate), Expires: 03/20/2026[facility] Work Phone: comment on above:Expected: 03/20/2025 (Approximate), Expires: 03/20/2026Start: 03-20-2025 End: 06-65-4571Vemqk of abuse panel - Urine by Screen methodRapid drug screen, urine Lab Routine , unspecified gestational age ([facility]) Encounter for supervision of normal first in first trimester ([facility]) Expected: 03/20/2025 (Approximate), Expires: 03/20/2026[facility] HealthcareComment on above: Expected: 03/20/2025 (Approximate), Expires: 03/20/2026Start: 74-81-0957Qrzbk BMI ScreeningAdult BMI ScreeningProMetrohealth [facility] SystemStart: 67-98-8746Wywhjcd ScreeningTobacco ScreeningProMetrohealth Par[facility] Center SystemStart: 55-81-0756Ntepipgao vaccinationInfluenza Vaccine (#1)[facility] HealthcareComment on above:Postponed from 05/11/2024 (Patient Refused)Start: 74-24-3641Pecfr BMI ScreeningAdult BMI ScreeningProMetrohealth Par[facility] Medical Center SystemStart: 88-70-5744Yrbuk BMI ScreeningAdult BMI ScreeningProMetrohealth Par[facility] Center SystemStart: 32-95-7895Tzhgi BMI ScreeningAdult BMI ScreeningProMetrohealth Par[facility] SystemStart: 73-28-6665Hpwflyq ScreeningTobacco ScreeningProMetrohealth Par[facility] Center SystemStart: 57-72-1509Yecpt BMI ScreeningAdult BMI ScreeningProMetrohealth Par[facility] SystemStart: 11-13-2024 End: 38-63-1948Rejtdle encounter gwoicsqza97/06/2025 11:00 AM EST Office Visit [facility] [address] [place] [address].[address] [place] [phone] Tonia Manzo MD [address] [address] May Dunlap, ATMOSPHERIC SCIENCES PROFESSOR-ANNEALING TORCH OPERATOR [address] [place] [address] [facility] Surgery-BariatricStart: 61-28-2729Cnfhc BMI ScreeningAdult BMI ScreeningProMetrohealth Par[facility] SystemStart: 10-30-2024 End: 95-08-5358AVJ W Auto Differential panel - BloodCBC auto differential Lab Routine Malnutrition following gastrointestinal surgery Postsurgical malab sorption H/O gastric bypass History of anemia Expected: 10/30/2024, Expires: 10/30/2025[facility] Work Phone: Comment on above:Expected: 10/30/2024, Expires: 10/30/2025Start: 10-30-2024 End: 25-49-8467Lwdmhvppsuzzod vitamin b-12Vitamin B12 Lab Routine Malnutrition following gastrointestinal surgery Postsurgical malabsorption H/O gastric bypass History of anemia Expected: 10/30/2024, Expires: 10/30/2025[facility] SystemComment on above:Expected: 10/30/2024, Expires: 10/30/2025Start: 10-30-2024 End: 16-27-8337Cgtglkuf [Mass/volume] in Serum or PlasmaFerritin Lab Routine Malnutrition following gastrointestinal surgery Postsurgical malabsorption H/O gastric bypass History of anemia Expected: 10/30/2024, Expires: 10/30/2025 [facility] SystemComment on above:Expected: 10/30/2024, Expires: 10/30/2025Start: 10-30-2024 End: 28-56-8618PcxalpQrehwd Lab Routine Malnutrition following gastrointestinal surgery Postsurgical malabsorption H/O gastric bypass History of anemia Expected: 10/30/2024, Expires: 10/30/2025[facility] SystemComment on above:Expected: 10/30/2024, Expires: 10/30/2025Start: 10-30-2024 End: 55-84-3362Wwme and TIBCIron and TIBC Lab Routine Malnutrition following gastrointestinal surgery Postsurgical malabsorption H/O gastric bypass History of anemia Expected: 10/30/2024, Expires: 10/30/2025[facility] Comment on above:Expected: 10/30/2024, Expires: 10/30/2025Start: 10-30-2024 End: 28-32-0777Wsabq panelLiver panel Lab Routine Malnutrition following gastrointestinal surgery Postsurgical malabsorption H/O gastric bypass History of anemia Expected: 10/30/2024, Expires: 10/30/2025[facility] Comment on above:Expected: 10/30/2024, Expires: 10/30/2025Start: 10-30-2024 End: 15-03-3829Kceszka (Vitamin B1), WBThiamin (Vitamin B1), WB Lab Routine Malnutrition following gastrointestinal surgery Postsurgical malabsorption H/O gastric bypass History of anemia Expected: 10/30/2024, Expires: 10/30/2025 [facility] SystemComment on above:Expected: 10/30/2024, Expires: 10/30/2025Start: 10-30-2024 End: 22-27-1109Vcxoqwn D 25 hydroxyVitamin D 25 hydroxy Lab Routine Malnutrition following gastrointestinal surgery Postsurgical malabsorption H/O gastric bypass History of anemia Expected: 10/30/2024, Expires: 10/30/2025[facility] SystemComment on above:Expected: 10/30/2024, Expires: 10/30/2025Start: 56-98-3030Refuerg ScreeningTobacco ScreeningProAkron Children's Hospitaltart: 10-10-2024 End: 26-20-1516Lhmphmf encounter vzjzcivtt58/31/2025 3:40 PM EST Office Visit [facility] FNLizeth [address] [place] [phone] Riddhi Plata MD [address] [place] [address] [facility]ST[facility] VALER[facility] FMComment on above:ArrivedStart: 58-35-4934Asgpd BMI Screening Adult BMI ScreeningProAkron Children's Hospitaltart: 69-59-9055Lkigavq Screening Tobacco ScreeningCritical access hospitaltart: 29-18-5459Fzyux BMI Screening Adult BMI ScreeningCritical access hospitaltart: 20-04-5360Dvpuwdb Screening Tobacco ScreeningPremier Health Atrium Medical Center SystemStart: 43-93-3289Tfwfo BMI Screening Adult BMI ScreeningCritical access hospitaltart: 08-25-2024 End: 967081-rwuwgnhymbxcyh D3 [Mass/volume] in Serum or PlasmaVitamin D 25 hydroxy Lab Routine Bariatric surgery status Vitamin D deficiency Expected: 08/25/2024(Approximate), Expires: 08/25/2025[facility] HealthcareComment on above: Expected: 08/25/2024 (Approximate), Expires: 08/25/2025Start: 08-25-2024 End: 91-15-3996XRZ W Auto Differential panel - BloodCBC and differential Lab Routine Bariatric surgery status Vitamin D deficiency Iron deficiency anemia, unspecified iron deficiency anemia type Expected: 08/25/2024 (Approximate), Expires: 08/25/2025[facility] HealthcareComment on above:Expected: 08/25/2024 (Approximate), Expires: 08/25/2025Start: 08-25-2024 End: 04-41-1828Tbemfptda (Vitamin B12) [Mass/volume] in Serum or PlasmaVitamin B12 Lab Routine Bariatric surgery status Vitamin D deficiency Iron deficiency anemia, unspecified iron deficiency anemia type Expected: 08/25/2024 (Approximate), Expires: 08/25/2025[facility] Work Phone: Comment on above:Expected: 08/25/2024 (Approximate), Expires: 08/25/2025Start: 08-25-2024 End: 74-34-0370Nsvz + transferrin + TIBCIron + transferrin + TIBC Lab Routine Bariatric surgery status Vitamin D deficiency Iron deficiencyanemia, unspecified iron deficiency anemia type Expected: 08/25/2024 (Approximate), Expires: 08/25/2025[facility] HealthcareComment on above:Expected: 08/25/2024 (Approximate), Expires: 08/25/2025Start: 08-25-2024 End: 58-74-9620Dcwxkfy encounter crdrgckme57/16/2024 8:20 AM EST Office Visit [facility] [address] [place] [phone] Riddhi Plata MD [address] [place], [place] [phone] Rosamaria PADILLA Comment on above:ArrivedStart: 27-78-5022Uirib BMI Screening Adult BMI ScreeningCritical access hospitaltart: 07-31-2024 End: 23-13-3183BLC W Auto Differential panel - BloodCBC auto differential Lab Routine H/O gastric bypass Postoperative malabsorption Malnutrition following gastrointestinal surgery Expected: 07/31/2024 (Approximate), Expires: 04/30/2025 [facility] Work Phone: Comment on above:Expected: 07/31/2024 (Approximate), Expires: 04/30/2025Start: 07-31-2024 End: 58-44-6646Vnueolqilwzbjg vitamin b-12Vitamin B12 Lab Routine H/O gastric bypass Postoperative malabsorption Malnutrition following gastrointestinal surgery Expected: 07/31/2024 (Approximate), Expires: 04/30/2025[facility] SystemComment on above:Expected: 07/31/2024 (Approximate), Expires: 04/30/2025 Start: 07-31-2024 End: 19-36-8468OxlbdiDbpuli Lab Routine H/O gastric bypass Postoperative malabsorption Malnutrition following gastrointestinal surgery Expected: 07/31/2024 (Approximate), Expires: 04/30/2025[facility] SystemComment on above:Expected: 07/31/2024 (Approximate), Expires: 04/30/2025Start: 07-31-2024 End: 26-55-1582Ibdd [Mass/volume] in Serum or PlasmaIron Lab Routine H/O gastric bypass Postoperative malabsorption Malnutrition following gastrointestinal surgery Expected: 07/31/2024 (Approximate), Expires: 04/30/2025[facility] SystemComment on above:Expected: 07/31/2024 (Approximate), Expires: 04/30/2025 Start: 07-31-2024 End: 61-74-7563Onwma panelLiver panel Lab Routine H/O gastric bypass Postoperative malabsorption Malnutrition following gastrointestinal surgery Expected: 07/31/2024 (Approximate), Expires: 04/30/2025[facility] Comment on above:Expected: 07/31/2024 (Approximate), Expires: 04/30/2025Start: 07-31-2024 End: 85-86-4020Bjyaeft (Vitamin B1), WBThiamin (Vitamin B1), WB Lab Routine H/O gastric bypass Postoperative malabsorption Malnutrition following gastrointestinal surgery Expected: 07/31/2024 (Approximate), Expires: 04/30/2025 [facility] SystemComment on above:Expected: 07/31/2024 (Approximate), Expires: 04/30/2025Start: 07-31-2024 End: 12-98-2588Tayuybm D 25 hydroxyVitamin D 25 hydroxy Lab Routine H/O gastric bypass Postoperative malabsorption Malnutrition following gastrointestinal surgery Expected: 07/31/2024 (Approximate), Expires: 04/30/2025[facility] SystemComment on above:Expected: 07/31/2024 (Approximate), Expires: 04/30/2025 Start: 07-24-2024 End: 80-22-3822Acgqgzk encounter uggzcrreo94/14/2024 11:30 AM EST Office Visit [facility] [address] [facility] [place] [phone] Tonia Manzo MD [address] [address] May Dunlap, ATMOSPHERIC SCIENCES PROFESSOR-ANNEALING TORCH OPERATOR [address] [place], [place] [phone] [facility] Surgery-BariatricStart: 86-49-7312Dbrorpm ScreeningTobacco ScreeningCritical access hospitaltart: 06-12-2024 End: 68-71-4034Iydpefsz identified in Urine by CultureUrine culture (clean catch) Microbiology Routine Dysuria Expected: 06/12/2024 (Approximate), Expires: 06/12/2025[facility] Work Phone: Comment on above:Expected: 06/12/2024 (Approximate), Expires: 06/12/2025Start: 06-12-2024 End: 70-88-8645Fiprxcazpx complete panel - UrineUrinalysis with reflex microscopic (clean catch) Lab Routine Dysuria Expected: 06/12/2024 (Approxima te), Expires: 06/12/2025[facility] HospitalComment on above:Expected: 06/12/2024 (Approximate), Expires: 06/12/2025Start: 06-04-2024 End: 18-81-6266tpfbnagljs55/25/2024 10:30 AM EDT Support Visit [facility] [address] [place] [phone] Tonia Manzo MD [address] [address] Jenny Moise RDAdventHealth [facility] Start: 06-02-2024 End: 52-47-2499oeixwwfkqv09/23/2024 1:00 PM EDT Support Visit [facility] [address] [place] [phone] Tonia Manzo MD [address] [facility], [address] [phone] Belem Pleitez LDAdventHealth Parker DieticiansStart: 80-96-5072FudeuibpeBuchanan General HospitalStart: 05-01-2024 End: 22-49-3089Fjsdfry encounter wvtrpyyfq33/22/2024 1:30 PM EDT Office Visit [facility] General Surgery-Bariatric [address] [place] [phone] Tonia Manzo MD [address] [facility], [address] [address] [facility] Surgery-BariatricStart: 05-01-2024 End: 87-91-5657xkyvcdpcpf00/22/2024 1:00 PM EDT Support Visit [facility] [address] [place] [phone] Jenny Moise RDAdventHealth Parker DieticiansStart: 04-23-2024 End: 60-36-9870Ljcnwskyf to same day surgery qwgkpj8804/23/2024 9:30 AM EDT - 04/23/2024 11:30 AM EDT Surgery [facility] - Surgery [address] [place] [phone] Tonia Manzo MD [address] [facility], [address] [address] DAVINCI BYPASS GASTRIC BONNIE EN Y [81177 (CPT )][facility] - SurgeryComment on above:DAVINCI BYPASS GASTRIC BONNIE EN Y [02288 (CPT )]Start: 04-23-2024 End: 79-29-0394Kqta gstr rstcv px w/byp bonnie-en-y limb <150 cmDAVINCI BYPASS GASTRIC BONNIE EN Y MORBID OBESITY/HYPERTENSION 04/23/2024 9:30 AM EDTTOLEDO SURGERYStart: 32-95-6773Lfxjhybhxa hospital visit by mjrijvpxh04/14/2024 9:30 AM EDT Hospital Encounter [facility] Surgery [address] [place] [phone] Tonia Manzo MD [address] [facility], [address] [phone] (Work) [facility] - SurgeryStart: 04-15-2024 End: 18-29-2665OV Chest PA and [facility] Work Phone: Comment on above:Expected: 04/15/2024 (Approximate), Expires: 04/15/2025Start: 03-27-2024 End: 27-09-3245Vdxewren and Metabolites, Random, UrineNicotine and Metabolites, Random, Urine Lab Routine Unable to assess patient's smoking status within the last 12 months Expected: 03/27/2024, Expires: 2025[facility] Work Phone: Comment on above:Expected: 03/27/2024, Expires: 2025Start: 03-27-2024 End: 09-36-9153SK Abdomen limitedUltrasound abdomen limited Imaging Routine Chronic RUQ pain Expected: 03/27/2024, Expires: 03/27/2025Pro[facility] Campusca Health SystemComment on above:Expected: 03/27/2024, Expires: 03/27/2025Start: 03-27-2024 End: 53-59-6499Gssmkac encounter lbsncanoa35/18/2024 1:30 PM EDT Office Visit [facility] General [facility]-B[facility]ric [address] [place] [phone] Tonia Manzo MD [address] [facility], [address] [address] [facility] Physicians General Surgery-BariatricStart: 48-01-1744Yqihd BMI Follow Up PlanAdult BMI Follow Up PlanCritical access hospitaltart: 03-17-2024 End: 25-39-4482Oxlxlmjzyhwhgs vitamin b-12Vitamin B12 Lab Routine Preop testing Expected: 03/17/2024, Expires: 01/16/2025[facility] SystemComment on above:Expected: 03/17/2024, Expires: 01/16/2025Start: 03-17-2024 End: 99-19-2613WhqypmXxlnxh Lab Routine Preop testing Expected: 03/17/2024, Expires: 01/16/2025[facility] SystemComment on above:Expected: 03/17/2024, Expires: 01/16/2025Start: 03-17-2024 End: 01-16-2025H Pylori Breath AdultH Pylori Breath Adult Lab Routine Preop testing Expected: 03/17/2024, Expires: 01/16/2025[facility] SystemComment on above:Expected: 03/17/2024, Expires: 01/16/2025Start: 03-17-2024 End: 10-54-2126Oublquopbh A1c/Hemoglobin.total in BloodHemoglobin A1c Lab Routine Preop testing Expected: 03/17/2024, Expires: 01/16/2025[facility] Work Phone: Comment on above:Expected: 03/17/2024, Expires: 01/16/2025Start: 03-17-2024 End: 01-63-1231Sciu and TIBCIron and TIBC Lab Routine Preop testing Expected: 03/17/2024, Expires: 01/16/2025[facility] SystemComment on above:Expected: 03/17/2024, Expires: 01/16/2025Start: 03-17-2024 End: 79-71-9876Kigzd 1996 panel - Serum or PlasmaLipid profile Lab Routine Preop testing Expected: 03/17/2024, Expires: 01/16/2025[facility] SystemComment on above:Expected: 03/17/2024, Expires: 01/16/2025Start: 03-17-2024 End: 89-45-4626Vohqrdynpzx [Units/volume] in Serum or PlasmaTSH Lab Routine Preop testing Expected: 03/17/2024, Expires: 01/16/2025[facility] Comment on above:Expected: 03/17/2024, Expires: 01/16/2025Start: 03-17-2024 End: 27-75-8764Svaovpq D 25 hydroxyVitamin D 25 hydroxy Lab Routine Preop testing Expected: 03/17/2024, Expires: 01/16/2025[facility] SystemComment on above:Expected: 03/17/2024, Expires: 01/16/2025Start: 03-17-2024 End: 08-91-5389Uvthvwe encounter procedureProLake Martin Community Hospital Physicians CardiologyStart: 03-06-2024 End: 10-70-2777Boegwvrknsdr consultation with ukfnbnt6603/06/2024 1:30 PM EDT Telemedicine [facility] [address] [place] [phone] Jenny Moise RDAd[facility]Health [facility] Start: 02-07-2024 End: 64-38-4544vymxugwkwm61/30/2024 1:30 PM EDT Support Visit [facility] [address] [place] [phone] Jenny Moise RDAdventHealth Parker DieticiansStart: 01-02-2024 End: 53-34-3619bwaojnkjcc60/24/2024 12:30 PM EDT Support Visit [facility] [address] [place] [address] Jenny Moise RDAdventHealth Parker DieticiansStart: 12-12-2023 End: 53-98-1426Bbbgeae encounter jdfpiavxv42/03/2024 1:00 PM EDT Appointment [facility] - Radiology [address] [place] [address] JvcQuvnlqKettering Health [facility] - RadiologyStart: 12-05-2023 End: 29-81-6649igmqwzcsjn10/27/2024 1:30 PM EDT Support Visit [facility] [address] [place] [phone] Jenny Moise RDAdventHealth Parker DieticiansStart: 11-21-2023 End: 68-45-8618Hiibyim encounter jodtjcjqg82/13/2024 1:00 PM EDT Appointment [facility] - Radiology [address] [place] [address] Tonia Manzo MD [address] [facility] [address] [place] [address] [facility] RadiologyStart: 11-08-2023 End: 61-40-4784ujmafuowvv22/29/2024 11:30 AM EST Support Visit [facility] [address] [place] [phone] Jenny Moise RDProSt. Mary'[facility] Medical Center DieticiansStart: 10-10-2023 End: 99-06-8075Tfucwfa encounter ikvjesgka83/31/2024 8:15 AM EST Office Visit [facility] [address] [place] [address] Patel Alcaraz MD [address] [place] [address] Theodora Early MD [address] [place] [address] [facility] Physicians CardiologyStart: 10-09-2023 End: 51-34-0829gxlejxzrdr15/30/2024 11:00 AM EST Support Visit [facility] [address] [place] [phone] Jenny Moise RDAdventHealth Parker DieticiansStart: 09-27-2023 End: 51-81-5093Aqnnmcv encounter ryqhjsrhj40/18/2024 11:45 AM EST Office Visit [facility] Pulmonary/Sleep Medicine [address] [place] [address] Jalyn Vidal, DO [address] [address] [facility] Pulmonary/Sleep MedicineStart: 64-05-8266Tqihxhrgf vaccinationInfluenza Vaccine [facility] SystemStart: 47-42-1883Jlwjkkwxrn measurementCreatinine monitoringMercy HealthStart: 55-08-5799Mzkigmjzf monitoringPotassium monitoring [facility] HealthStart: 08-43-5294Ghtxohkjqw measurementCreatinine monitoringMercy HealthStart: 59-22-0412Yypndjpxg monitoringPotassium monitoringMemorial Health Systemcy Health Start: 34-70-6243Kklwmlrnsh MonitoringDepression MonitoringMercy HealthStart: 74-38-3901Qybboovnza measurementCreatinine monitoringMercy HealthStart: 98-91-2531Heuthukpp monitoringPotassium monitoringMercy HealthStart: 12-09-2021 End: 12-12-2316Ltqhkhl encounter oxpeuadbh97/01/2022 Office Visit Obstetrics and Gynecology Brandie Moore, DO [address] [place] [address] [facility] Medicaid [facility] Careart: 11-30-2021 End: 88-47-7827Gnhrfjj encounter zzitrsbso01/23/2022 Office Visit Family Medicine Rochelle Louis MD [address] [facility] [address] [place] [address] [facility]: 11-30-2021 End: 12-77-3818Nnpfncdzfvos consultation with zvokoam1311/30/2021 Telemedicine Family Medicine Rochelle Louis MD [address] [facility] [address] [place] [address] [facility] [place] Start: 19-31-2627Xgdftnyhq vaccinationFlu vaccine (#1)[facility] CenterStart: 92-74-9340RLzQ,Tdap and Td Vaccines (7 - Td or Tdap)DTaP,Tdap and Td Vaccines (7 - Td or Tdap)Critical access hospitaltart: 91-80-7810Howmmjiha for malignant neoplasm of cervixPap smearUniversity Hospitals Parma Medical CenterStart: 64-00-6866RNsV/Tdap/Td vaccine (1 - Tdap)DTaP/Tdap/Td vaccine (1 - Tdap)[facility] CenterStart: 31-32-9343SOO screening HIV screenUniversity Hospitals Parma Medical CenterStart: 11-88-6539Iljhuueltm MonitoringDepression MonitoringUniversity Hospitals Parma Medical CenterStart: 29-27-5599Yuepnwzsdb ScreenDepression ScreenUniversity Hospitals Parma Medical CenterStart: 08-66-2170Dswdrxqeyr ScreeningDepression ScreeningCritical access hospitaltart: 50-19-0964QJCQY-19 Vaccine (1)COVID-19 Vaccine (1)[facility] Start: 67-04-7655Ozdsecfzx vaccine (1 of 2 - 2-dose childhood series)Varicella vaccine (1 of 2 - 2-dose childhood series)[facility] CenterStart: 10-34-6200Mequyqffn C screeningHepatitis C [facility] End: 67-80-9123Ylby thrombin 3 functAnti thrombin 3 funct Lab Routine 20 weeks gestation of History of maternal pulmonary embolus 1 Occurrences starting 05/29/2025 until 05/29/2026[facility] SystemComment on above:1 Occurrences starting 05/29/2025 until 6Anti thrombin 3 functAnti thrombin 3 funct Lab Routine 20 weeks gestation of History of maternal pulmonary embolus 05/29/2025 1:48 [facility] End: 42-35-0126Alwf-Xa, Unfractionated HeparinAnti-Xa, Unfractionated Heparin Lab Timed Every 6 Hours (Lab) for 7 Days starting 12/01/2021 until 12/07/2021 [facility] Work Phone: comment on above:Every 6 Hours (Lab) for 7 Days starting 12/01/2021 until 12/07/2021acteria identified in Urine by CultureUrine culture Microbiology Routine Missed menses Ordered: 03/20/2025[facility] Healthcare Comment on above:Ordered: 03/20/2025BC panel - Blood by Automated countCBC Lab Routine Every Other Day until discontinued starting 12/02/2021[employer] Work Phone: comment on above:Every Other Day until discontinued starting 12/02/2021BC W Auto Differential panel - BloodCBC and differential Lab Routine Missed menses , unspecified gestational age ([facility]) Ordered: 03/20/2025[facility] HealthcareComment on above:Ordered: 03/20/2025HLAMYDIA TRACHOMATIS (GENITO/STI)CHLAMYDIA TRACHOMATIS (GENITO/STI) Lab Routine Screen for STD (sexually transmitted disease) Ordered: 06/10/2025[facility] HealthcareComment on above:Ordered: 06/10/2025 End: 79-79-4234Xrvdxbxkbadgn metabolic 2000 panel - Serum or PlasmaComprehensive metabolic panel Lab Routine 20 weeks gestation of Chronic hypertension affecting 1 Occurrences starting 05/29/2025 until 05/29/2026[facility] SystemComment on above:1 Occurrences starting 05/29/2025 until 05/29/2026omprehensive metabolic 2000 panel - Serum or Plasma Comprehensive metabolic panel Lab Routine 20 weeks gestation of Chronic hypertension affecting 05/29/2025 1:48 PM [facility] End: 96-25-3722Qwwbnzqbtoysep vitamin b-12Vitamin B12 Lab Routine 20 weeks gestation of Bariatric surgery status complicating , second trimester 1 Occurrences starting 05/29/2025 until 05/29/2026[facility] SystemComment on above:1 Occurrences starting 05/29/2025 until 05/29/2026 Cyanocobalamin vitamin b-12Vitamin B12 Lab Routine 20 weeks gestation of Bariatric surgery status complicating , second trimester 05/29/2025 1:48 PM [facility] CenterProtoGeo [facility] MichiganCytology Cervical or vaginal smear or scraping studyPap Smear Pathology and Cytology Routine Well woman exam with routine gynecological exam Ordered: 06/10/2025[facility] HealthcareComment on above: Ordered: 06/10/2025 End: 62-67-0334BDE 12 leadECG 12 lead ECG Routine 20 weeks gestation of Chronic hypertension affecting 1 Occurrences starting 05/29/2025 until 05/29/2026[facility] Phone: comment on above:1 Occurrences starting 05/29/2025 until 05/29/2026EKG 12 leadEKG 12 lead ECG Routine As Needed until discontinued starting 11/30/2021[employer] Phone: comment on above:As Needed until discontinued starting 11/30/2021EKG 12 LeadEKG 12 Lead ECG STAT 11/30/2021 7:35 PM [employer] Phone: ekg 12 LeadEKG 12 Lead ECG STAT 12/05/2021 4:00 PM [employer] End: 28-60-8361Fnqrzjvm [Mass/volume] in Serum or PlasmaFerritin Lab Routine 20 weeks gestation of Bariatric surgery status complicating , second trimester 1 Occurrences starting 05/29/2025 until 05/29/2026[facility] HospitalLe Lutin [email or web address] on above:1 Occurrences starting 05/29/2025 until 05/29/2026 Ferritin [Mass/volume] in Serum or PlasmaFerritin Lab Routine 20 weeks gestation of Bariatric surgery status complicating , second trimester 05/29/2025 1:48 PM [employer] End: 16-94-7071MjbskgCspwaq Lab Routine 20 weeks gestation of Bariatric surgery status complicating ,second trimester 1 Occurrences starting 05/29/2025 until 05/29/2026[facility] [email or web address] SystemComment on above:1 Occurrences starting 05/29/2025 until 05/29/2026FolateFolate Lab Routine 20 weeks gestation of Bariatric surgery status complicating , second trimester 05/29/2025 1:48 PM NetPaymentGlucose [Mass/volume] in Serum or PlasmaPOCT Glucose Point of Care Testing Routine 4X Daily (AC & HS) until discontinued starting 12/01/2021[employer] Phone: comment on above:4X Daily (AC & HS) until discontinued starting 12/01/2021Hemoglobin A1c/Hemoglobin.total in BloodHemoglobin A1c Lab Routine Missed menses , unspecified gestational age ([facility]) Ordered: 03/20/2025[facility] HealthcareComment on above:Ordered: 03/20/2025Hepatitis B virus surface Ag [Presence] in Serum or Plasma by ImmunoassayHepatitis B surface antigen Lab Routine Missed menses , unspecified gestational age ([facility]) Ordered: 03/20/2025[facility] HealthcareComment on above:Ordered: 03/20/2025 Hepatitis C virus Ab [Presence] in Serum or Plasma by ImmunoassayHepatitis C antibody Lab Routine Missed menses , unspecified gestational age ([facility]) Ordered: 03/20/2025[facility] HealthcareComment on above:Ordered: 03/20/2025 HIV-1/HIV-2 antigen/antibody combination immunoassayHIV-1 and HIV-2 antibodies Lab Routine Missed menses , unspecified gestational age ([facility]) Ordered: 03/20/2025[facility] HealthcareComment on above:Ordered: 03/20/2025Human papilloma virus DNA [Presence] in Unspecified specimen by Probe with amplificationHPV DNA probe, amplified Microbiology Routine Well woman exam with routine gynecological exam Ordered: 06/10/2025[facility] HealthcareComment on above: Ordered: 06/10/2025 End: 42-35-8428Hsvzaechqvky pulse oximetryPulse Oximetry Spot Check Respiratory Care Routine One Time for 1 Occurrences starting 12/01/2021 until 12/01/2021 [employer] Phone: comment on above:One Time for 1 Occurrences starting 12/01/2021 until 12/01/2021 End: 17-32-1300Zfeu and TIBCIron and TIBC Lab Routine 20 weeks gestation of Bariatric surgery status complicating , second trimester 1 Occurrences starting 05/29/2025 until 05/29/2026[facility] SystemComment on above:1 Occurrences starting 05/29/2025 until 05/29/2026Iron and TIBCIron and TIBC Lab Routine 20 weeks gestation of Bariatric surgery status complicating , second trimester 05/29/2025 1:48 PM [facility] End: 94-53-3565XHLAHX Lab Routine 20 weeks gestation of Chronic hypertension affecting 1 Occurrences starting 05/29/2025 until 05/29/2026[facility] HospitalPawaa Software [facility] MichiganComment on above:1 Occurrences starting 05/29/2025 until 05/29/2026LDHLDH Lab Routine 20 weeks gestation of Chronic hypertension affecting 51:48 PM [facility] End: 71-19-7672Wupjbsuhxdv peptide B [Mass/volume] in BloodB-type natriuretic peptide Lab Routine 20 weeks gestation of Chronic hypertension affecting 1 Occurrences starting 05/29/2025 until 05/29/2026[facility] SystemComment on above:1 Occurrences starting 05/29/2025 until 05/29/2026 Natriuretic peptide B [Mass/volume] in BloodB-type natriuretic peptide Lab Routine 20 weeks gestation of Chronic hypertension affecting 05/29/2025 1:48 PM [facility] HealthNeisseria gonorrhoeae DNA [Presence] in Unspecified specimen by MYNOR with probe detectionNeisseria gonorrhea DNA probe, direct Lab Routine Screen for STD (sexually transmitted disease) Ordered: 06/10/2025[facility] HospitalComment on above:Ordered: 06/10/2025 Nicotine and Metabolites panel [Mass/volume] - UrineNicotine and Metabolites, Random, Urine Lab Routine Unable to assess patient's smoking status within the last 12 months 03/27/2024 6:08 PM [facility] CenterProtoGeo [facility] MichiganOxygen therapy [Minimum Data Set]Initiate Oxygen Therapy Protocol Respiratory Care Routine As Needed until discontinued starting 11/30/2021[facility] [employer] Work Phone: comment on above:As Needed until discontinued starting 11/30/2021OCT EKGPOCT EKG ECG Routine Preop testing [employer] Work Phone: POCT EKGPOCT EKG ECG Routine Preop cardiovascular exam [employer] Work Phone: End: 82-61-1933Ojzvprr C activityProtein C activity Lab Routine 20 weeks gestation of History of maternal pulmonary embolus 1 Occurrences starting 05/29/2025 until 05/29/2026[facility] HospitalPawaa Software [facility] MichiganComment on above:1 Occurrences starting 05/29/2025 until 09/19/2026Protein C activityProtein C activity Lab Routine 20 weeks gestation of History of maternal pulmonary embolus 05/29/2025 1:48 PM [employer] [facility] End: 56-83-2973Zsroodc creat ratioProtein creat ratio Lab Routine 20 weeks gestation of Chronic hypertension affecting 1 Occurrences starting 05/29/2025 until 05/29/2026[facility] [employer] SystemComment on above:1 Occurrences starting 05/29/2025 until 05/29/2026Protein creat ratioProtein creat ratio Lab Routine 20 weeks gestation of Chronic hypertension affecting 05/29/2025 1:48 PM [facility] GRAPEVINEGreenPeak TechnologiesProtein Electrophoresis, UrineProtein Electrophoresis, Urine Lab STAT 11/30/2021 9:20 PM [employer] Phone: End: 84-48-8940Oopxsjg S activityProtein S activity Lab Routine 20 weeks gestation of History of maternal pulmonary embolus 1 Occurrences starting 05/29/2025 until 05/29/2026[facility] HospitalPawaa Software [facility] MichiganComment on above:1 Occurrences starting 05/29/2025 until 05/29/2026Protein S activityProtein S activity Lab Routine 20 weeks gestation of History of maternal pulmonary embolus 05/29/2025 1:48 PM [employer] [facility] MichiganReagin Ab [Presence] in Serum by RPRRPR Lab Routine Missed menses , unspecified gestational age ([facility]) Ordered: 03/20/2025[facility] HealthcareComment on above: Ordered: 03/20/2025Rubella antibody, IgGRubella antibody, IgG Lab Routine Missed menses , unspecified gestational age ([facility]) Ordered: 03/20/2025[facility] HealthcareComment on above:Ordered: 03/20/2025SURESWAB(R) ADVANCED VAGINITIS PLUS, TMASURESWAB(R) ADVANCED VAGINITIS PLUS, TMA Pathology and Cytology Routine Screen for STD (sexually transmitted disease) Ordered: 06/10/2025[facility] [employer] Work Phone: comment on above:Ordered: 06/10/2025 End: 92-55-2848Myrdvka (Vitamin B1), WBThiamin (Vitamin B1), WB Lab Routine 20 weeks gestation of Bariatric surgery status complicating , second trimester 1 Occurrences starting 05/29/2025 until 05/29/2026[facility] HospitalPawaa Software [facility] MichiganComment on above:1 Occurrences starting 05/29/2025 until 05/29/2026 Thiamin (Vitamin B1), WBThiamin (Vitamin B1), WB Lab Routine 20 weeks gestation of Bariatric surgery status complicating , second trimester 05/29/2025 1:48 PM [employer] End: 06-51-2493Hwueo [Mass/volume] in Serum or PlasmaUric acid Lab Routine 20 weeks gestation of Chronic hypertension affecting 1 Occ urrences starting 05/29/2025 until 05/29/2026[facility] HospitalPawaa Software SystemComment on above:1 Occurrences starting 05/29/2025 until 05/29/2026Urate [Mass/volume] in Serum or PlasmaUric acid Lab Routine 20 weeks gestation of Chronic hypertension affecting 05/29/2025 1:48 PM [employer] End: 52-34-0079Secooxd D 25 hydroxyVitamin D 25 hydroxy Lab Routine 20 weeks gestation of Bariatric surgery status complicating , second trimester 1 Occurrences starting 05/29/2025 until 05/29/2026[facility] HospitalPawaa Software [facility] MichiganComment on above:1 Occurrences starting 05/29/2025 until 05/29/2026Vitamin D 25 hydroxyVitamin D 25 hydroxy Lab Routine 20 weeks gestation of Bariatric surgery status complicating , second trimester 05/29/2025 1:48 PM [employer] End: 55-04-6011Aluk, SerumZinc, Serum Lab Routine 20 weeks gestation of Bariatric surgery status complicating , second trimester 1 Occurrences starting 05/29/2025 until 05/29/2026[facility] HospitalPawaa Software [facility] MichiganComment on above:1 Occurrences starting 05/29/2025 until 05/29/2026Zinc, SerumZinc, Serum Lab Routine 20 weeks gestation of Bariatric surgery status complicating , second trimester 05/29/2025 1:48 PM [employer] [facility] Immunizations Immunization DateImmunizationNotesCare RvvxnseaMsmjmwyb80-86-5398xtnjxlmnp, injectable, quadrivalent, preservative Mitch Plata MD Work Phone: NOCenterpoint Medical CenterQraqgtjrxh96-08-4095mbigtnxnn virus vaccine, unspecified formulationSrobert Moise [facility]05-31-2012hepatitis A vaccine, pediatric/adolescent dosage, 2 dose scheduleRiddhi Plata MD Work Phone: [facility] HospitalLbvopbabbg15-78-1921opvogsjwc, seasonal, injectableRiddhi Plata MD Work Phone: [facility] HospitalFnhyrvfpua47-96-8492fatzu papilloma virus vaccine, quadrivalentRiddhi Plata MD Work Phone: [facility] HospitalTnhzqzhfhn52-64-8010hxhlazfqp A vaccine, pediatric/adolescent dosage, 2 dose scheduleRiddhi Plata MD Work Phone: [facility] HospitalGrkvqcotnr01-76-9427nywdn papilloma virus vaccine, quadrivalentRiddhi Palta MD Work Phone: [facility] HospitalQnijkkwbys14-89-9807ymjwcumor A vaccine, pediatric/adolescent dosage, 2 dose scheduleRiddhi Plata MD Work Phone: [facility] HospitalMirrehczqk76-79-8331jdwet papilloma virus vaccine, quadrivalentRiddhi Plata MD Work Phone: [facility] HospitalGqgvmoyujm85-90-7022gkubzbudoseww polysaccharide (groups A, C, Y and W-135) diphtheria toxoid conjugate vaccine (MCV4P)Riddhi Plata MD Work Phone: [facility] HospitalKmccsppfzq07-85-2914vqmsfvm toxoid, reduced diphtheria toxoid, and acellular pertussis vaccine, adsorbedRiddhi Plata MD Work Phone: [facility] HospitalBxdrurifrr12-34-8747tkgrvtfyls, tetanus toxoids and acellular pertussis vaccine, unspecified formulationRiddhi Plata MD Work Phone: [facility] HospitalUwnlpjnoft35-77-4638oxsrwqo, mumps and rubella virus vaccineRiddhi Plata MD Work Phone: [facility] HospitalJdrikjjipx73-94-6733frltmssnxu vaccine, unspecified formulationRiddhi Plata MD Work Phone: [facility] HospitalUbogwivyao82-26-0986tirsincfxu, tetanus toxoids and acellular pertussis vaccine, unspecified formulationRiddhi Plata MD Work Phone: [phone] [place], [place] [address]Tkogpjomzs28-93-4205iigyyhjljqd influenzae type b vaccine, conjugate unspecified formulationRiddhi Plata MD Work Phone: [phone] HospitalShzdkizamz34-95-6113tatzduskyn, tetanus toxoids and acellular pertussis vaccine, unspecified formulationRiddhi Plata MD Work Phone: [phone] HospitalRbnogdemil28-57-3548vaddhppezda influenzae type b vaccine, conjugate unspecified formulationRiddhi Plata MD Work Phone: [phone] [place], [place] [address]Btrfokhtzg63-40-4367vcqjgniae B vaccine, pediatric or pediatric/adolescent dosageRiddhi Plata MD Work Phone: [phone] [place], [place] [address]Sfiiibuzfr70-31-0534oevujotpib vaccine, unspecified formulationRiddhi Plata MD Work Phone: [phone] [place], [place] [address]Atwgsjifwm85-41-6921mycjzzzrtt, tetanus toxoids and acellular pertussis vaccine, unspecified formulationRiddhi Plata MD Work Phone: [phone] [place], [place] [address]Batywiiubk54-20-9336vsumfjaizuo influenzae type b vaccine, conjugate unspecified formulationRiddhi Plata MD Work Phone: [phone] HospitalDxdjhylawc67-11-7706otolgvhle B vaccine, pediatric or pediatric/adolescent dosageRiddhi Plata MD Work Phone: [phone] HospitalXdzszjrxuu28-51-3842jsqczcbtkb vaccine, unspecified formulationRiddhi Plata MD Work Phone: [place] [address]Wdkrkzbmnu00-39-1596wxvreuivls, tetanus toxoids and acellular pertussis vaccine, unspecified formulationRiddhi Plata MD Work Phone: [facility] HospitalAkzvavzidu13-50-6384stkfvgpkyzd influenzae type b vaccine, conjugate unspecified formulationRiddhi Plata MD Work Phone: [place] [address]Qatzysjhvg69-47-3307jskpehpyt B vaccine, pediatric or pediatric/adolescent Jazlyn Plata MD Work Phone: [place] [address]Zhsuqjydrj76-72-0622ilpnwtx, mumps and rubella virus vaccineRiddhi Plata MD Work Phone: [place] [address]Oouosocwyx51-36-8057etsvjttlkn vaccine, unspecified formulationRiddhi Plata MD Work Phone: [facility] Payers DatePayer CategoryPayerPolicy [id number] Health Insurance [id number] Care Other (unspecified)[employer] [id number] Medicaid (Managed Care)[employer] Member Subscriber Plan / Payer (Effective 2023-Present) Name: Shira Jett Relation to Subscriber: Self Name: Shira Jett Payer ID: Not on file Group ID: Not on file Type: Not on file Address: [facility] [address] [place] [id number] [id number] 2021Medicaid [place] [employer] Member Subscriber Plan / Payer (Effective 2021-Present) Name: Shira Jett Relation to Subscriber: Self Name: Shira Jett Payer ID: [id number] (NAIC) Group ID: Type: Not on file Address: [facility] [address] [place] [id number] [id number] 2.16.840.1.431972.3.57[id number] 2.16840.1.445075.3.57[id number] 2.16.840.1.584567.3.57[id number] 2.16840.1.113845.3.57[id number] 2.16840.1.702533.3.57[id number] 2.16.840.1.668080.3.57[id number] 2.16.840.1.545990.3.57[id number] 2.16.840.1.688185.3.57[id number] 2.16840.1.245795.3.57[id number] 2.16840.1.428269.3.57[id number] 2.16840.1.723748.3.57[id number] 2.16.840.1.117201.3.57[id number] 2.16840.1.831636.3.57[id number] 2.16840.1.585183.3.57[id number] 2.16840.1.001560.3.57[id number] 2.840.1.582947.3.579.[id number] 2.840.1.433976.3.579.[id number] 2.840.1.859245.3.57[id number] 2.840.1.541626.3.57[id number] 2.0.1.984718.3.57[id number] 2.840.1.109513.3.57[id number] 2.840.1.498065.3.57[id number] 2.0.1.431270.3.57[id number] 2.840.1.865571.3.579.2.[id number] 2.840.1.610284.3.57[id number] 2.840.1.240773.3.57[id number] 2.840.1.407222.3.579.2.[id number] 2.16.840.1.033106.3.57[id number] 2.16.840.1.030098.3.579.[id number] 2.16.840.1.891768.3.579.2.[id number] 2.16.840.1.496055.3.579.2.[id number] 2.16.840.1.444198.3.579.2.588462-19-0293Avzo-qpn78284205000-84-5450Qwhiccn [id number] 1.2.840.266721.1.13.239.2.7.3.532407.13088-76-3918Ahrhshx [id number] 1.2.840.235375.1.13.239.2.7.3.594765.315Unknown Social History DateTypeDetailFacilityTobacco smoking status NHISTobacco smoking consumption unknownBrown [facility] Phone: start: 53-44-7014Vhq Assigned At BirthNot on [facility] Phone: start: 11-15-2021 End: 07-93-0737Zqhwtjec to SARS-CoV-2 (event)Not sureMemorial Health SystemRedbeacon Phone: start: 11-29-2021 End: 09-29-3443Bfwfaju smoking status NHISNever smoked tobaccoMemorial Health SystemRedbeacon Phone: start: 11-29-2021 End: 09-33-0903Nfjluyk use and exposureSmokeless tobacco non-userMemorial Health SystemRedbeacon Phone: start: 12-01-2021 End: 90-03-0201Mwnotql intakeLifetime non-drinker (finding)[facility] Work Phone: start: 23-10-0116Iqyxvcp SDOH Jhbyhepwl1Aicdk Health Work Phone: start: 27-02-4907Oboflhm SDOH Food Xgxju9Wobvl Health Work Phone: start: 03-04-2024 End: 32-28-6953Xztlgat of Social functionPremier Health [facility] SystemStart: 03-04-2024 End: 46-44-6780Ftxhkvx use panelCritical access hospitaltart: 84-77-5825Tyckwum CommentCaffeine intake: 1-2 cups per day coffeeProgress West HospitalStart: 07-19-2023 End: 33-65-4243Jdiuwhi intakeEx-drinker (finding)Critical access hospitaltart: 14-77-7566Fpaolqscow depression screening nkulcmcmms3FpvZzgkje[address] [place] [address] Start: 12-40-6179Wzxdtja CommentsocialCritical access hospitaltart: 1995 Sex Assigned At BirthH[facility]ibal Regional Hospitaltart: 63-69-0624Zpfiqd identityIdentifies as female gender (finding)Critical access hospitaltart: 27-77-2237Waoagu orientationHeterosexual (finding)[facility] SystemHas the electric, gas, oil, or water company threatened to shut off services in your home in past 12Zucker Hillside HospitalHow often to you have a drink containing alcohol?NeverCritical access hospitaltart: 70-83-1500JggWbedhs (finding)Critical access hospitaltart: 89-23-3470ZmptzsgcnXKBL [facility] Medical Equipment Procedure CodeEquipment CodeEquipment Original TextEquipment IdentifierDates Check fingersticks 4 times daily, fasting and 1 hour after the start of a meal [id number]: 05-29-2025 Goals DatePatient GoalDesired Activity/StatePersonal health goalPersonal health goal Comment on above: Evaluation of progress towards goal: safe transition from hospital to home with family support. Clinical Notes 11-28-2021 to 06-24-2025 Note Date & DgyiObbpLheynakf08-57-0922 History of Present illness Narrative* JOSEPHINE Chinchilla [...] reflux disease 12/15/2019 Gestational diabetes mellitus (GDM) ([facility]) 12/09/2018 History of diet controlled gestational diabetes mellitus (GDM) 11/30/2021 Iron deficiency anemia 12/29/2019 Irregular periods 05/17/2023 Menorrhagia with regular cycle 05/17/2023 Asthma ([facility]) 12/09/2018 Class 3 severe obesity due to excess calories with serious comorbidity and body mass index (BMI) of50.0 to 59.9 in adult ([facility]) 05/17/2023 Nausea and vomiting 05/17/2023 Pneumonia due to infectious organism 07/30/2022 Preeclampsia in period ([facility]) 11/26/2021 Acute pulmonary embolism (HCC) 05/17/2023 Single [...] Mirena IUD GERD without esophagitis Gestational diabetes ([facility]) H/O blood clots H/O: hypertension High blood pressure History of being hospitalized Hormone imbalance Intrauterine device surveillance Irregular bleeding Morbid obesity with BMI of 50.0-59.9, adult ([facility]) Nausea Nausea with vomiting Pneumonia 07/30/2022 hypertension ([facility]) Pulmonary embolism (HCC) 11/2021 Well woman exam [...] nursing note reviewed. Exam conducted with a electrical equipment technician present. Vitals: Estimated body mass index is 43.65 kg/m as calculated from the following: Height as of 10/10/24: 5' 1 . Weight as of 06/10/25: 231 lb. BP: Patient's last menstrual period was 01/09/2025. ASSESSMENT & PLAN ICD-10-CM 1. Second trimester ([facility]) Z34.92 POCT urinalysis dipstick manually resulted 2. 23 weeks gestation of ([facility]) Z3A.23 3. History of diet controlled gestational diabetes mellitus (GDM) Z86.32 4. Preeclampsia in period ([facility]) O14.95 5. History of pulmonary embolism Z86.711 [...] given A1C/CBC order to have scheduled at [facility]. Pt can't not drink the glucose drink due to having gastric bypass surgery. Pt was advised to make sure to have her blood drawn. PVU. Pt states she was dx w/gallstones at the [facility] on 06/17/2025. Pt states she ended [...] Frequent headaches GERD without esophagitis Gestational diabetes ([facility]) H/O blood clots H/O gastric bypass H/O: hypertension High blood pressure History of being hospitalized Pt was re-admitted to [facility] for HTN (11/2021) , Pt had a baby (11/21/21) Hormone imbalance Intrauterine device surveillance Irregular bleeding Morbid obesity with BMI of 50.0-59.9, adult ([facility]) Nausea Nausea with vomiting Pneumonia 07/30/2022 hypertension ([facility]) Pulmonary embolism (HCC) 11/2021 Rt. ; [facility] post Well woman exam [3] Family History [...] FINE PERCUTANEOUS ASPIRATION 06/14/2020 documented in this encounterProgress West HospitalRtczhvcqtw70-15-2310 Miscellaneous Notes* Telephone Encounter - Winter Gibbons LPN - 06/22/2025 3:41 PM EDT Left voicemail at [facility] pharmacy with my direct phone number to inquire why patient is unable to refill her Lovexox as the prior auth was approved by insurance last week. documented in this encounterOhio State Health System10-13-2025 Telephone encounter Note* Telephone Encounter - Winter Gibbons LPN - 06/22/2025 3:41 PM EDT Left voicemail at [facility] with my direct phone number to inquire why patient is unable to refill her Lovexox as the prior auth was approved by insurance last week. [facility]10-08-2025 Miscellaneous Notes* Telephone Encounter - Winter Gibbons LPN - 06/17/2025 8:59 AM EDT Spoke with patient in regards to [employer] message from last evening. Patient states the SOB and under the rib pain comes and goes. Denies headache or blurry vision but is noticing some swelling. Patient states this started out of the blue. Reference Library Assistant encouraged patient to be evaluated as soon as possible at the closest Emergency Room for further evaluation. Patient verbalized understanding. documented in this encounterOhio State Health System10-08-2025 Telephone encounter Note* Telephone Encounter - Winter Gibbons LPN - 06/17/2025 8:59 AM EDT Spoke with patient in regards to [employer] message from last evening. Patient states the SOB and under the rib pain comes and goes. Denies headache or blurry vision but is noticing some swelling. Patient states this started out of the blue. Reference Library Assistant encouraged patient to be evaluated as soon as possible at the closest Emergency Room for further evaluation. Patient verbalized understanding. [facility]10-01-2025 History of Present illness Narrative* Ned Spicer [...] reflux disease 12/15/2019 Gestational diabetes mellitus (GDM) ([facility]) 12/09/2018 History of diet controlled gestational diabetes mellitus (GDM) 11/30/2021 Iron deficiency anemia 12/29/2019 Irregular periods 05/17/2023 Menorrhagia with regular cycle 05/17/2023 Asthma ([facility]) 12/09/2018 Class 3 severe obesity due to excess calories with serious comorbidity and body mass index (BMI) of50.0 to 59.9 in adult ([facility]) 05/17/2023 Nausea and vomiting 05/17/2023 Pneumonia due to infectious organism 07/30/2022 Preeclampsia in period ([facility]) 11/26/2021 Acute pulmonary embolism ([facility]) 05/17/2023 Single subsegmental pulmonary embolism without acute cor pulmonale ([facility]) 05/17/2023 Seasonal allergic rhinitis due to pollen 12/15/2019 Thyroid nodule 05/17/2023 Urinary tract infection without hematuria 05/17/2023 LUCIANO on CPAP 02/22/2023 History of pulmonary embolism 03/17/2022 H/O gastric bypass 04/20/2025 Resolved Ambulatory Problems Diagnosis Date Noted No Resolved Ambulatory Problems Past Medical History: Diagnosis Date Acute memory impairment COVID 02/2020 Encounter for insertion of Mirena IUD GERD without esophagitis Gestational diabetes ([facility]) H/O blood clots H/O: hypertension High blood pressure History of being hospitalized Hormone imbalance Intrauterine device surveillance Irregular bleeding Morbid obesity with BMI of 50.0-59.9, adult ([facility]) Nausea Nausea with vomiting Pneumonia 07/30/2022 hypertension ([facility]) Pulmonary embolism (HCC) 11/2021 Well woman exam HISTORY PAST MEDICAL HISTORY SOCIAL HISTORY Past Medical History: Diagnosis Date Acute memory impairment Anemia Asthma (HCC) COVID 02/2020 Depression Encounter for insertion of Mirena IUD Frequent headaches GERD without esophagitis Gestational diabetes ([facility]) H/O blood clots H/O gastric bypass H/O: hypertension High blood pressure History of being hospitalized Pt was re-admitted to [facility] for HTN (11/2021) , Pt had a baby (11/21/21) Hormone imbalance Intrauterine device surveillance Irregular bleeding Morbid obesity with BMI of 50.0-59.9, adult ([facility]) Nausea Nausea with vomiting Pneumonia 07/30/2022 hypertension ([facility]) Pulmonary embolism (HCC) 11/2021 Rt. ; [facility] post Well woman exam Social [...] nursing note reviewed. Exam conducted with a electrical equipment technician present. Vitals: Estimated body mass index is 44.37 kg/m as calculated from the following: Height as of 10/10/24: 5' 1 . Weight as of 05/14/25: 234 lb 12.8 oz. BP: Patient's last menstrual period was 01/09/2025. ASSESSMENT & PLAN ICD-10-CM 1. 21 weeks gestation of ([facility]) Z3A.21 POCT urinalysis dipstick manually resulted 2. Well woman exam Z01.419 3. Second trimester ([facility]) Z34.92 4. Screen for STD (sexually transmitted [...] of: Ned Spicer NP documented in this encounterProgress West HospitalRczryfqpak62-51-2534 History of Present illness Narrative* Winter Gibbons [...] risk Have you been seen here at [facility] in a previous ? No Recent ER visits or hospitalizations? Yes, for elevated blood pressure Bring blood sugar log or meter with you today? (Please bring them with you for every visit at [facility]) N/A Flu vaccine (Jul-November)? N/A Any [...] for trisomy 13, 18, 21, monosomy X, ([place]) Carrier screening: I have reviewed the pertinent [...] CARDIAC CATHETERIZATION 11/23/2018 DAVINCI DV5 BYPASS GASTRIC BONNIE-EN Y N/A 04/23/2024 Performed by Tonia Manzo MD at [facility] FINE NEEDLE ASPIRATION 06/14/2020 US Guided [...] recommended threshold of 160/110. Referenc e: PMID: [id number], 2021. Blood pressures do increase as progresses [...] preeclampsia prevention as is recommended by the [place] [employer] Committee Opinion No. 743. [...] aspirin vs 10.3% no aspirin, p=0.45) (PMBID: [id number]). Given well-established benefits baby aspirin for the prevention of preeclampsia, I recommend initiating baby aspirin even in the setting of history of Bonnie-en-Y surgery. Micronutrient Dosing Recommendations: Calcium: recommend 1000-1200mg daily; if deficient, recommend 1237-7137 mg PO daily in divided doses Vitamin [...] patient is in complete care of her unix analyst. Patient does have ultrasound and office visit [...] procedures Referring and communicating with other health primary care coordinator (not separately reported) Documenting clinical information in the electronic or other health record Independently interpreting results (not separately reported) and communicating results to the patient/family/caregiver Ester Pratt MD Maternal- Medicine [facility] [address] [facility] 1st [place] [address] This document was created with PlaySay technology. Though I make every effort to review the dictation as it is transcribed, on occasion the spoken word can be misinterpreted by the technology leading to inappropriate words, phrases, or sentences. This note is addressed to the requesting provider as a consultation for clinical guidance. Specificmedical abbreviations are occasionally used and those are generally approved by the [place]?Board of?Obstetrics and?Gynecology?as well as?Antonio dewey abbreviations. The above plan of care was based solely on the diagnoses for which a consultation was requested. ?More frequent testing may be indicated based on her other medical/obstetrical conditions. The management of other or medical conditions is beyond the scope of requested consultation and will c ontinue to be followed by the primary unix analyst or primary care provider. Note to patient: [...] the practitioner. documented in this encounterOhio State Health System09-15-2025 Telephone encounter Note* Telephone Encounter - Riddhi Plata MD - 05/25/2025 6:30 PM EDT Approvals with refills Progress West HospitalHmdkyvtiha54-54-1735 Miscellaneous Notes* Telephone Encounter - Riddhi Plata MD - 05/25/2025 6:30 PM EDT Approvals with refills documented in this encounterProgress West HospitalWjnyxajcsr88-06-2659 History of Present illness Narrative* Ned Spicer [...] reflux disease 12/15/2019 Gestational diabetes mellitus (GDM) ([facility]) 12/09/2018 History of diet controlled gestational diabetes mellitus (GDM) 11/30/2021 Iron deficiency anemia 12/29/2019 Irregular periods 05/17/2023 Menorrhagia with regular cycle 05/17/2023 Asthma ([facility]) 12/09/2018 Class 3 severe obesity due to excess calories with serious comorbidity and body mass index (BMI) of50.0 to 59.9 in adult ([facility]) 05/17/2023 Nausea and vomiting 05/17/2023 Pneumonia due to infectious organism 07/30/2022 Preeclampsia in period ([facility]) 11/26/2021 Acute pulmonary embolism ([facility]) 05/17/2023 Single subsegmental pulmonary embolism without acute cor pulmonale ([facility]) 05/17/2023 Seasonal allergic rhinitis due to pollen 12/15/2019 Thyroid nodule 05/17/2023 Urinary tract infection without hematuria 05/17/2023 LUCIANO on CPAP 02/22/2023 History of pulmonary embolism 03/17/2022 H/O gastric bypass 04/20/2025 Resolved Ambulatory Problems Diagnosis Date Noted No Resolved Ambulatory Problems Past Medical History: Diagnosis Date Acute memory impairment COVID 02/2020 Encounter for insertion of Mirena IUD GERD without esophagitis Gestational diabetes ([facility]) H/O blood clots H/O: hypertension High blood pressure History of being hospitalized Hormone imbalance Intrauterine device surveillance Irregular bleeding Morbid obesity with BMI of 50.0-59.9, adult ([facility]) Nausea Nausea with vomiting Pneumonia 07/30/2022 hypertension ([facility]) Pulmonary embolism (HCC) 11/2021 Well woman exam HISTORY PAST MEDICAL HISTORY SOCIAL HISTORY Past Medical History: Diagnosis Date Acute memory impairment Anemia Asthma (HCC) COVID 02/2020 Depression Encounter for insertion of Mirena IUD Frequent headaches GERD without esophagitis Gestational diabetes ([facility]) H/O blood clots H/O gastric bypass H/O: hypertension High blood pressure History of being hospitalized Pt was re-admitted to [facility] for HTN (11/2021) , Pt had a baby (11/21/21) Hormone imbalance Intrauterine device surveillance Irregular bleeding Morbid obesity with BMI of 50.0-59.9, adult ([facility]) Nausea Nausea with vomiting Pneumonia 07/30/2022 hypertension ([facility]) Pulmonary embolism (HCC) 11/2021 Rt. ; [facility] post Well woman exam Social [...] amplified 2. Screening, , for anatomic survey ([facility]) Z36.89 US OB 14+ weeks anatomy scan US OB 14+ weeks anatomy scan 3. Second trimester ([facility]) Z34.92 POCT urinalysis dipstick manually resulted Alpha fetoprotein, maternal Alpha fetoprotein, maternal 4. 17 weeks gestation of ([facility]) Z3A.17 POCT urinalysis dipstick manually resulted Alpha [...] routine OB appointment. Patient is scheduled with [facility] on May 29 and was given early 1 hour GTT at last appointment an states she will obtain 1 hour glucose this week. Taking Labetalol 200 mg TID and monitoring B/P at home. B/P today 124/80. Documented by Ned Spicer NP on behalf of: Ned Spicer NP documented in this encounterProgress West HospitalHydujdlsys34-12-5482 History of Present illness Narrative* Ned Spicer [...] reflux disease 12/15/2019 Gestational diabetes mellitus (GDM) ([facility]) 12/09/2018 History of diet controlled gestational diabetes mellitus (GDM) 11/30/2021 Iron deficiency anemia 12/29/2019 Irregular periods 05/17/2023 Menorrhagia with regular cycle 05/17/2023 Asthma ([facility]) 12/09/2018 Class 3 severe obesity due to excess calories with serious comorbidity and body mass index (BMI) of50.0 to 59.9 in adult ([facility]) 05/17/2023 Nausea and vomiting 05/17/2023 Pneumonia due to infectious organism 07/30/2022 Preeclampsia in period ([facility]) 11/26/2021 Acute pulmonary embolism ([facility]) 05/17/2023 Single subsegmental pulmonary embolism without acute cor pulmonale ([facility]) 05/17/2023 Seasonal allergic rhinitis due to pollen 12/15/2019 Thyroid nodule 05/17/2023 Urinary tract infection without hematuria 05/17/2023 LUCIANO on CPAP 02/22/2023 History of pulmonary embolism 03/17/2022 H/O gastric bypass 04/20/2025 Resolved Ambulatory Problems Diagnosis Date Noted No Resolved Ambulatory Problems Past Medical History: Diagnosis Date Acute memory impairment COVID 02/2020 Encounter for insertion of Mirena IUD GERD without esophagitis Gestational diabetes ([facility]) H/O blood clots H/O: hypertension High blood pressure History of being hospitalized Hormone imbalance Intrauterine device surveillance Irregular bleeding Morbid obesity with BMI of 50.0-59.9, adult ([facility]) Nausea Nausea with vomiting Pneumonia 07/30/2022 hypertension ([facility]CC) Pulmonary embolism (HCC) 11/2021 Well woman exam HISTORY PAST MEDICAL HISTORY SOCIAL HISTORY Past Medical History: Diagnosis Date Acute memory impairment Anemia Asthma (HCC) COVID 02/2020 Depression Encounter for insertion of Mirena IUD Frequent headaches GERD without esophagitis Gestational diabetes ([facility]) H/O blood clots H/O gastric bypass H/O: hypertension High blood pressure History of being hospitalized Pt was re-ad[facility] to [facility] for HTN (11/2021) , Pt had a baby (11/21/21) Hormone imbalance Intrauterine device surveillance Irregular bleeding Morbid obesity with BMI of 50.0-59.9, adult ([facility]) Nausea Nausea with vomiting Pneumonia 07/30/2022 hypertension ([facility]) Pulmonary embolism (HCC) 11/2021 Rt. ; [facility] post Well woman exam Social [...] nursing note reviewed. Exam conducted with a electrical equipment technician present. Vitals: Estimated body mass index is 43.08 kg/m as calculated from the following: Height as of 10/10/24: 5' 1 . Weight as of this encounter: 228 lb. BP: 138/78 Patient's last menstrual period was 01/09/2025. ASSESSMENT & PLAN ICD-10-CM 1. Second trimester ([facility]) Z34.92 POCT urinalysis dipstick manually resulted 2. 14 weeks gestation of ([facility]) Z3A.14 3. Primary hypertension I10 4. H/O [...] of: Bin Morales DO documented in this encounterProgress West [id number] History of Present illness Narrative* Leslye Chairez, WANG - 03/20/2025 9:00 AM EDT Reason for [...] reflux disease 12/15/2019 Gestational diabetes mellitus (GDM) ([facility]) 12/09/2018 History of diet controlled gestational diabetes mellitus (GDM) 11/30/2021 Iron deficiency anemia 12/29/2019 Irregular periods 05/17/2023 Menorrhagia with regular cycle 05/17/2023 Asthma ([facility]) 12/09/2018 Class 3 severe obesity due to excess calories with serious comorbidity and body mass index (BMI) of50.0 to 59.9 in adult ([facility]) 05/17/2023 Nausea and vomiting 05/17/2023 Pneumonia due to infectious organism 07/30/2022 Preeclampsia in period ([facility]) 11/26/2021 Acute pulmonary embolism (HCC) 05/17/2023 Single [...] Mirena IUD GERD without esophagitis Gestational diabetes ([facility]) H/O blood clots H/O gastric bypass H/O: hypertension High blood pressure History of being hospitalized Hormone imbalance Intrauterine device surveillance Irregular bleeding Morbid obesity with BMI of 50.0-59.9, adult ([facility]) Nausea Nausea with vomiting Pneumonia 07/30/2022 hypertension ([facility]) Pulmonary embolism (HCC) 11/2021 Well woman exam [...] dipstick manually resulted , unspecified gestational age ([facility]) - Type and screen; Future - ABO/Rh; [...] supervision of normal first in first trimester ([facility]) - Rapid drug screen, urine; Future [...] or undercooked meat, and [facility] away from [facility]. Patient has also been advised to not change litter boxes and eat 6 small meals a day. Patient has been consulted regarding the do's and don'ts ofpregnancy. Patient was given labs and all questions and concerns were answered. Patient given [place] to have completed with initial labs and [...] by: Leslye Chairez LPN documented in this encounterProgress West [id number] History of Present illness Narrative* Moriah Guthrie PA-C - 01/01/2025 11:30 AM EDTSummary: 8 months s/p RYGB, Dr. Manzo Images from the original note were not included. 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 documented in this encounterMagruder HospitalPawaa Software [id number] Instructions* Patient Instructions* Moriah Guthrie PA-C - [...] Dr. Manzo documented in this encounterOhio State Health System02-20-2025 History of Present illness Narrative* Nilam Stallworth RN - 10/30/2024 8:38 AM EST 6 month labs entered. Patient has appointment 11/13/24 with May. documented in this encounterOhio State Health System01-31-2025 History of Present illness Narrative* Riddhi Plata [...] B-12) 1000 MCG/ML injection D3-50 1.25 MG (55545 UT) capsule fluticasone (Flonase) 50 MCG/ACT nasal [...] Depression: Not at risk (04/23/2024) Received from [facility] PHQ-2 Total Score: 0 REVIEW OF SYMPTOMS: [...] Orders STATUS COVID-19/FLU (Completed) documented in this encounterProgress West [id number] History of Present illness Narrative* Riddhi Plata [...] B-12) 1000 MCG/ML injection D3-50 1.25 MG (57651 UT) capsule fluticasone (Flonase) 50 MCG/ACT nasal [...] Depression: Not at risk (04/23/2024) Re[facility] PHQ-2 Total Score: 0 REVIEW OF [...] TIBC Assessment & Plan documented in this encounterProgress West [id number] History of Present illness Narrative* Riddhi Plata [...] mg, Oral, Every morning D3-50 1.25 MG (58260 UT) capsule fluticasone (Flonase) 50 MCG/ACT nasal [...] Depression: Not at risk (04/23/2024) Received from [facility] PHQ-2 Total Score: 0 REVIEW OF [...] importance of vitamin comlpiance documented in this encounterProgress West [id number] History of Present illness Narrative* Judson Guzmán [...] reactions immediately. documented in this encounterOhio State Health System09-25-2024 History of Present illness Narrative* Jenny Moise RD - 06/04/2024 10:30 AM EDT Bariatric Medical [...] % Decreased BMI: 10.14 Tacking intake in [employer] sly. Struggles meeting 80 grams of protein [...] iron daily or 1 vitamin daily. 2) 5170-1748 mg calcium in divided doses (2x/day) for sleeve and gastric bypass, 8811-3404 mg in divided doses (3x/day) for SADS [...] all discussed has been provided within the [facility]. Start time: 1038 End time: 1108 documented in this encounterMagruder HospitalPawaa Software [id number] Instructions* Patient Instructions* Jenny Moise RD - 06/04/2024 10:30 AM EDT Read the [facility] B[facility]ric Guide. If you re looking for general health and wellness resources, please visit [email or web address]. documented in this encounterMagruder HospitalPawaa Software [id number] History of Present illness Narrative* Jenny Moise [...] time: 1301 documented in this encounterOhio State Health System08-22-2024 Instructions* Patient Instructions* Jenny Moise RD - 05/01/2024 1:00 PM EDT Read the [facility] Bariatric Guide. If you re looking for general health and wellness resources, please visit [email or web address]. documented in this encounterOhio State Health System08-22-2024 History of Present illness Narrative* Tonia Manzo MD - 05/01/2024 12:30 PM EDT [facility]-BARIATRIC [address] [place] [phone] SURGICAL WEIGHT LOSS PROGRAM PROGRESS NOTE POSTOP [...] Exercise Regularly documented in this encounterOhio State Health System08-18-2024 Miscellaneous Notes* Telephone Encounter - NEIL Davenport - 04/27/2024 1:07 PM EDT Contract: OC 105 Patient calling in stating she just had surgery on the Apr 23 and she is having bloody mucous when she coughs. Connected Dr. Manzo with Shira documented in this encounterOhio State Health System08-18-2024 Telephone encounter Note* Telephone Encounter - NEIL Davenport - 04/27/2024 1:07 PM EDT Contract: OC 105 Patient calling in stating she just had surgery on the Apr 23 and she is having bloody mucous when she coughs. Connected Dr. Manzo with Shira [facility] Hospital course Narrative* Moriah Guthrie PA-C - [...] Your Medications These medications were sent to [facility] [id number] [facility] [address] [facility] [address] [facility] [id number] cyclobenzaprine 10 mg tablet enoxaparin 40 mg/0.4 mL syringe omeprazole 40 mg capsule ondansetron ODT 4 mg disintegrating tablet oxyCODONE-acetaminophen 5-325 mg per tablet Moriah Guthrie PA-C 04/24/24 1048 Moriah Guthrie PA-C 04/24/24 1050 documented in this encounterOhio State Health System08-15-2024 Progress note* Discharge Planning Note - Shira [...] Bledsoe RN 04/24/24 10:44 AM [facility]08-[facility]-2024 Miscellaneous Notes* Discharge Planning Note - Shira [...] Description: INTERVENTIONS: 1. Encourage patient or legal client service representative to report early pain and ask [...] per policy 9. Teach patient or legal client service representative interventions for comforting Outcome: Progressing Note: [...] at the bedside 7. Instruct patient/ patient client service representative about use of safety devices 8. Include patient/ patient client service representative in decisions related to safety Outcome: [...] hygiene technique 7. Identify and instruct patient/patient client service representative in use of appropriate isolation precautionsfor identified infection/symptoms 8. Provide and discuss with patient/patient client service representative on educational MDRO sheet 9. Encourage and monitor nutritional status daily and consult returned goods repairer if indicated 10. Implement neutropenic guidelines as needed 11. Review exposure to history of communicable disease and recent travel history on admission 12. Encourage annual influenza vaccine 13. Encourage pneumonia vaccine Outcome: Progressing Note: Evaluation of progress towards goal: afebrile, cont to monitor Problem: Knowledge Deficit Goal: Patient/patient client service representative demonstrates understanding of disease process, treatment [...] Collaborate with ancillary departments 14. Include patient/patient client service representative in decisions related to anxiety Outcome: [...] care 6. Collaborate with pastoral/spiritual care, social science manager, mental health counselor as needed. 7. Instruct patient on diversional activities such as physical activity, distraction, and deep breathing exercises to assist with coping 8. Involve patient's client service representative in care Outcome: Progressing Note: Evaluation [...] Description: INTERVENTIONS: 1. Encourage patient or legal client service representative to report early pain and ask [...] per policy 9. Teach patient or legal client service representative interventions for comforting Outcome: Progressing Note: [...] at the bedside 7. Instruct patient/ patient client service representative about use of safety devices 8. Include patient/ patient client service representative in decisions related to safety Outcome: [...] hygiene technique 7. Identify and instruct patient/patient client service representative in use of appropriate isolation precautionsfor identified infection/symptoms 8. Provide and discuss with patient/patient client service representative on educational MDRO sheet 9. Encourage and monitor nutritional status daily and consult returned goods repairer if indicated 10. Implement neutropenic guidelines as needed 11. Review exposure to history of communicable disease and recent travel history on admission 12. Encourage annual influenza vaccine 13. Encourage pneumonia vaccine Outcome: Progressing Note: Evaluation of progress towards goal: Pt vitals and labs monitored, proper standard precautions for infection prevention, all insertion/surgical sites monitored for infection Problem: Knowledge Deficit Goal: Patient/patient client service representative demonstrates understanding of disease process, treatment [...] of 0 - 24 or indicated by [facility] Rehab Assessment Goal: Patient should be free from fall Description: Interventions: 1. [place] to environment 2. Hourly rounds addressing the [...] non-skid footwear 11. Teach patient and patient client service representative to maintain environment for safety and [...] Description: INTERVENTIONS: 1. Encourage patient or legal client service representative to report early pain and ask [...] per policy 9. Teach patient or legal client service representative interventions for comforting Outcome: Progressing Note: [...] at the bedside 7. Instruct patient/ patient client service representative about use of safety devices 8. Include patient/ patient client service representative in decisions related to safety Outcome: Progressing Note: Evaluation of progress towards goal: patient is independent and stead on feet Problem: Knowledge Deficit Goal: Patient/patient client service representative demonstrates understanding of disease process, treatment [...] Bonnie-en-Y Gastric Bypass Surgeon: Tonia Manzo MD Religious Studies Professor: Hanna Jaquez MD-Fellow Anesthesia: General Endotracheal Intra-operative [...] this fire was done then a 32 Mongolian VisiGi 3D orogastric tube was guided along [...] brought up to the pouch in an [place] loop technique and reached the pouch without [...] Prior to completing the stoma, the 32 Mongolian tube was advanced from the pouch into [...] as the Bonnie limb and then a [id number]-oz-[id number] stapled jejunojejunostomy was completed using a 60 [...] TONIA MANZO MD 04/23/24 documented in this encounterOhio State Health System08-15-2024 Plan of care note * Plan of Care - Olga Montana RN - 04/24/2024 10:34 AM EDT Problem: Pain Goal: Patient goal is pain score less than 4, able to rest, and participant in treatment plan as appropriate Description: INTERVENTIONS: 1. Encourage patient or legal client service representative to report early pain and ask [...] per policy 9. Teach patient or legal client service representative interventions for comforting Outcome: Progressing Note: [...] at the bedside 7. Instruct patient/ patient client service representative about use of safety devices 8. Include patient/ patient client service representative in decisions related to safety Outcome: [...] hygiene technique 7. Identify and instruct patient/patient client service representative in use of appropriate isolation precautionsfor identified infection/symptoms 8. Provide and discuss with patient/patient client service representative on educational MDRO sheet 9. Encourage and monitor nutritional status daily and consult returned goods repairer if indicated 10. Implement neutropenic guidelines as needed 11. Review exposure to history of communicable disease and recent travel history on admission 12. Encourage annual influenza vaccine 13. Encourage pneumonia vaccine Outcome: Progressing Note: Evaluation of progress towards goal: afebrile, cont to monitor Problem: Knowledge Deficit Goal: Patient/patient client service representative demonstrates understanding of disease process, treatment [...] planning to home later today Additional Comments: [facility]08-15-2024 History of Present illness Narrative* Melanie Zee [...] on having access to the bariatric surgeon contact lens edge buffer 02/04, by calling the office phone number. Will monitor her B/P when goes home. Instructed to bring B/P log to her one-week follow-up appointment. All education provided outlined within the [facility] Bariatric Guide. Patient verbalized an understanding of all education reinforced. Personalized letter mailed to patient, providing com writer's contact information. Melanie Zee RN, CBN Metabolic & Bariatric Surgery Coordinator [facility] Weight Loss Surgery * Moriah [...] 04/24/24 1046 documented in this encounterOhio State Health System08-14-2024 Plan of care note * Plan of [...] Collaborate with ancillary departments 14. Include patient/patient client service representative in decisions related to anxiety Outcome: [...] care 6. Collaborate with pastoral/spiritual care, social science manager, mental health counselor as needed. 7. Instruct patient on diversional activities such as physical activity, distraction, and deep breathing exercises to assist with coping 8. Involve patient's client service representative in care Outcome: Progressing Note: Evaluation [...] Description: INTERVENTIONS: 1. Encourage patient or legal client service representative to report early pain and ask [...] per policy 9. Teach patient or legal client service representative interventions for comforting Outcome: Progressing Note: [...] at the bedside 7. Instruct patient/ patient client service representative about use of safety devices 8. Include patient/ patient client service representative in decisions related to safety Outcome: [...] hygiene technique 7. Identify and instruct patient/patient client service representative in use of appropriate isolation precautionsfor identified infection/symptoms 8. Provide and discuss with patient/patient client service representative on educational MDRO sheet 9. Encourage and monitor nutritional status daily and consult returned goods repairer if indicated 10. Implement neutropenic guidelines as needed 11. Review exposure to history of communicable disease and recent travel history on admission 12. Encourage annual influenza vaccine 13. Encourage pneumonia vaccine Outcome: Progressing Note: Evaluation of progress towards goal: Pt vitals and labs monitored, proper standard precautions for infection prevention, all insertion/surgical sites monitored for infection Problem: Knowledge Deficit Goal: Patient/patient client service representative demonstrates understanding of disease process, treatment [...] of 0 - 24 or indicated by [facility] Re[facility] Assessment Goal: Patient should be free from fall Description: Interventions: 1. [place] to environment 2. Hourly rounds addressing the [...] non-skid footwear 11. Teach patient and patient client service representative to maintain environment for safety and engage in all aspects of fall prevention program Outcome: Progressing Note: Evaluation of progress towards goal: Patient remains free from falls and injuries. Patient's 5 P's addressed. Patient bed is in a locked position. Patient has call light for assistance. [facility] Plan of care note* Plan of Care - Staci Dey RN - 04/23/2024 3:23 PM EDT Problem: Pain Goal: Patient goal is pain score less than 4, able to rest, and participant in treatment plan as appropriate Description: INTERVENTIONS: 1. Encourage patient or legal client service representative to report early pain and ask [...] per policy 9. Teach patient or legal client service representative interventions for comforting Outcome: Progressing Note: [...] at the bedside 7. Instruct patient/ patient client service representative about use of safety devices 8. Include patient/ patient client service representative in decisions related to safety Outcome: Progressing Note: Evaluation of progress towards goal: patient is independent and stead on feet Problem: Knowledge Deficit Goal: Patient/patient client service representative demonstrates understanding of disease process, treatment plan,medications, and discharge instructions Description: INTERVENTIONS 1. Complete learning assessment and assess knowledge base 2. Provide teaching at level of understanding 3. Provide teaching via preferred learning method(s) Note: Evaluation of progress towards goal: patient educated on importance of ambulating in the hallways [facility]08-14-[facility] Procedure note* Op Note - Tonia Manzo MD - 04/23/2024 9:02 AM EDT Bonnie-en-Y Gastric Bypass Operative Note Patient: Shira Jett : 1995 Date: 04/23/24 Preoperative diagnosis: Class 3 obesity with a BMI of 66.9 Postoperative diagnosis: same Procedure: Robotic Bonnie-en-Y Gastric Bypass Surgeon: Tonia Manzo MD Religious Studies Professor: Hanna Jaquez MD-Fellow Anesthesia: General Endotracheal Intra-operative [...] this fire was done then a 32 Mongolian VisiGi 3D orogastric tube was guided along [...] brought up to the pouch in an [place] loop technique and reached the pouch without [...] Prior to completing the stoma, the 32 Mongolian tube was advanced from the pouch into [...] as the Bonnie limb and then a [id number] stapled jejunojejunostomy was completed using a 60 [...] in satisfactory condition. TONIA MANZO MD 04/23/24 [facility]08-14-[facility] Attending History and physical note* Tonia Manzo MD - 04/23/2024 8:43 AM EDT HISTORY AND PHYSICAL INTERVAL NOTE: Shira Jett 1995 [id number] H&P reviewed. The patient was examined and there are no changes to the H&P. TONIA MANZO MD Source Note - rBenda Hubbard APRN-DEREK - 04/15/2024 8:30 AM EDT PRE-ADMISSION TESTING HISTORY AND PHYSICAL EXAM DATE: 04/15/24 PCP: Riddhi Plata MD HISTORY OF PRESENT ILLNESS: Shira Jett, a 29 y.o. White or female, presents to [facility] for a pre-surgical H&P.The patient has [...] syndrome) Pneumonia Preeclampsia, severe 11/23/2018 Pulmonary embolism ([facility]) Shortness of breath Visual impairment stigmatism PAST [...] the most recent lab values available in [facility] at the time ofthe office visit and additional labs may have been drawn since that time. ASSESSMENT / DIAGNOSIS: MORBID OBESITY/HYPERTENSION PLAN: Shira Jett is scheduled for Davinci Bypass Gastric Bonnie En Y on 04/23/[address] Manzo. MARCEL Louis 04/15/24 1001 MARCEL Louis 04/23/24 0843 [facility]08-14-2024 History and physical note* Tonia Manzo MD - 04/23/2024 8:43 AM EDT HISTORY AND PHYSICAL INTERVAL NOTE: Shira Jett 1995 [id number] H&P reviewed. The patient was examined and there are no changes to the H&P. TONIA MANZO MD Source Note - Brenda Lizeth Hubbard, ATMOSPHERIC SCIENCES PROFESSOR-ANNEALING TORCH OPERATOR - 04/15/2024 8:30 AM EDT PRE-ADMISSION TESTING HISTORY AND PHYSICAL EXAM DATE: 04/15/24 PCP: Riddhi Plata MD HISTORY OF PRESENT ILLNESS: Shira Jett, a 29 y.o. White or female, presents to [facility] for a pre-surgical H&P.The patient has [...] syndrome) Pneumonia Preeclampsia, severe 11/23/2018 Pulmonary embolism ([facility]) Shortness of breath Visual impairment stigmatism PAST [...] the most recent lab values available in [facility] at the time ofthe office visit and additional labs may have been drawn since that time. ASSESSMENT / DIAGNOSIS: MORBID OBESITY/HYPERTENSION PLAN: Shira Jett is scheduled for Davinci Bypass Gastric Bonnie En Y on 04/23/[address] Manzo. Brenda Hubbard APRN-DEREK 04/15/24 1001 MARCEL Louis 04/23/24 0843 documented in this encounterOhio State Health System08-08-2024 Miscellaneous Notes* Telephone Encounter - Nilam Stallworth RN - 04/17/2024 1:49 PM EDT Patient contacted office. Needs RX for colace resent to [facility]. documented in this encounterOhio State Health System08-08-2024 Telephone encounter Note* Telephone Encounter - Nilam Stallworth RN - 04/17/2024 1:49 PM EDT Patient contacted office. Needs RX for colace resent to [facility]. [facility] History of Present illness Narrative* Nilam Stallworth [...] and symptoms of complications to report. 3. [id number] steps to weight loss surgery. 4. Instructed [...] by Page Huang RN. documented in this [facility] [id number] Instructions* Patient Instructions* Nilam Stallworth RN - 04/15/2024 2:00 PM EDT Preoperative Bariatric Surgery Educational Class documented in this encounterProSum[facility]-06-[facility] History of Present illness Narrative* Nilam Stallworth RN - 04/15/2024 1:23 PM EDT Pre op CXR entered. documented in this encounterOhio State Health System08-06-2024 History and physical note* Brenda Hubbard APRN-DEREK - 04/15/2024 8:30 AM EDT PRE-ADMISSION TESTING HISTORY AND PHYSICAL EXAM DATE: 04/15/24 PCP: Riddhi Plata MD HISTORY OF PRESENT ILLNESS: Shira Jett, a 29 y.o. White or female, presents to [facility] for a pre-surgical H&P.The patient has [...] syndrome) Pneumonia Preeclampsia, severe 11/23/2018 Pulmonary embolism ([facility]) Shortness of breath Visual impairment stigmatism PAST [...] the most recent lab values available in [facility] at the time ofthe office visit and additional labs may have been drawn since that time. ASSESSMENT / DIAGNOSIS: MORBID OBESITY/HYPERTENSION PLAN: Shira Jett is scheduled for Davinci Bypass Gastric Obnnie En Y on 04/23/[address] Manzo. MARCEL Louis 04/15/24 1001 [employer] Work Phone: 1(271) 348-838308-06-2024 History and physical note* MARCEL Louis - 04/15/2024 8:30 AM EDT PRE-ADMISSION TESTING HISTORY AND PHYSICAL EXAM DATE: 04/15/24 PCP: Riddhi Plata MD HISTORY OF PRESENT ILLNESS: Shira Jett, a 29 y.o. White or female, presents to [facility] for a pre-surgical H&P.The patient has [...] syndrome) Pneumonia Preeclampsia, severe 11/23/2018 Pulmonary embolism ([facility]) Shortness of breath Visual impairment stigmatism PAST [...] the most recent lab values available in [facility] at the time ofthe office visit and additional labs may have been drawn since that time. ASSESSMENT / DIAGNOSIS: MORBID OBESITY/HYPERTENSION PLAN: Shira Jett is scheduled for Davinci Bypass Gastric Bonnie En Y on 04/23/[address] Manzo. MARCEL Louis 04/15/24 1001 documented in this encounterOhio State Health System08-06-2024 Instructions* Patient Instructions* Melanie Garcia RN - 04/15/2024 8:30 AM EDT Your surgery/procedure is scheduled at [facility] on at 9:30 am Arrival Time 7:30 am [facility] Address: [address] [place] [address]. [address] in [address]1 Parking lot located on [facility]. Report to the Entrance B. Check in at the information desk the surgery. The waiting room located on the second floor. If you have any questions prior to surgery, please call Pre-Admission Clinic at [phone] between 7:30 am and 4:30 pm Sunday through Sunday. If you have questions the morning of surgery, please call the Pre-op Department at [phone]. Notify your SURGEON if you develop any [...] piercings ,hair extensions that contain metal, nail serbian, make-up, and contact lens. You may brush [...] RIGHTS AND RESPONSIBILITIES As a patient at [facility], you have the right to: Receive medical care and be informed of who is taking care of you Be treated with dignity and respect Have a family member/client service representative of choice and your physician notified of your admission Receive information and actively participate in decisions about your care and treatment Refuse care, treatment and services Decide who may provide your support and speak for you Access islam and spiritual services Participate in ethical issues [...] of hospital charges and payment methods Patient/patient client service representative responsibilities are to: Provide information about [...] clean clothes. documented in this encounterOhio State Health System07-18-2024 History of Present illness Narrative* Tonia Manzo [...] week post operative visit documented in this encounterMagruder HospitalHeart Health [facility] [id number] History of Present illness Narrative* Cr Venegas MD - 03/17/2024 8:15 AM EDT Shira Souza Johnie Date of visit: 03/17/2024 [...] apnea Pneumonia Preeclampsia, severe 11/23/2018 Pulmonary embolism ([facility]) Shortness of breath No data recorded No [...] Resource Strain: Low Risk (11/29/2021) Received from [facility] Overall Financial Resource Strain (CARDIA) Difficulty [...] Referring Physician: Riddhi Plata MD [address] [place] [address] documented in this encounterOhio State Health System07-03-2024 Miscellaneous Notes* Telephone Encounter - Anne Ruiz CMA - 03/12/2024 9:12 AM EDT Called patient to remind them to bring their most current copy of their medication list with them to their appt. Patient verbalizes understanding. documented in this encounterOhio State Health System07-03-2024 Telephone encounter Note* Telephone Encounter - Anne Ruiz CMA - 03/12/2024 9:12 AM EDT Called patient to remind them to bring their most current copy of their medication list with them to their appt. Patient verbalizes understanding. [facility] History of Present illness Narrative* Jenny Moise, RD - 03/06/2024 1:30 PM EDT Bariatric [...] walking with working 20 hours per week Shiar has been focusing her meals on protein. Discussed healthier choices at [facility]. Bariatric Medical Nutrition Therapy Goal Summary Eat [...] all discussed has been provided within the [facility] Bariatric Guide. My contact name and number provided if questions or concerns arise. Nutrition Monitoring: To follow up in 1 month to show progress towards goals. Start time: 1316 End time: 1329 documented in this encounterOhio State Health System06-27-2024 Instructions* Patient Instructions* Jenny Moise RD - 03/06/2024 1:30 PM EDT Read the [facility] Bariatric Guide. If you re looking for general health and wellness resources, please visit [facility]icaat[facility] health [email or web address]. documented in this encounterOhio State Health System05-30-2024 History of Present illness Narrative* Jenny Moise [...] Physical Activity: walking the zoo, went to [place] for vacation and walked at the [facility] and active with work Bariatric Medical Nutrition [...] all discussed has been provided within the [facility] Bariatric Guide. My contact name and number provided if questions or concerns arise. Nutrition Monitoring: To follow up in 1 month to show progress towards goals. Start time: 1330 End time: 1348 documented in this encounterOhio State Health System05-30-2024 Instructions* Patient Instructions* Jenny Moise RD - 02/07/2024 1:30 PM EDT Read the [facility] Bariatric Guide. If you re looking for general health and wellness resources, please visit [facility] [email or web address]. documented in this encounterOhio State Health System04-24-2024 History of Present illness Narrative* Jenny Moise [...] Recall: Breakfast Snack Lunch Snack Dinner Snack [place] with cheese and low fat sour cream [place] cheese and low fat sour cream [place] cheese and low fat sour cream Beverage [...] 1208 End time: 1219 documented in this encounterOhio State Health System04-24-2024 Instructions* Patient Instructions* Jenny Moise RD - 01/02/2024 12:30 PM EDT Read the [facility] Bariatric Guide. If you re looking for general health and wellness resources, please visit [email or web address] [email or web address]. documented in this encounterOhio State Health System03-27-2024 History of Present illness Narrative* Aby Davey - 12/05/2023 1:55 PM EDT Patient visited the Food Clinic and received food on 12/05/23. Provided one time food bag today. Patient needs a referral. Allen Petar [facility] documented in this encounterOhio State Health System03-27-2024 History of Present illness Narrative* Jenny Moise RD - 12/05/2023 1:30 PM EDT Bariatric Medical Nutrition Therapy Nutritional Assessment/Education Session #: 9 Shira Jett is a 28 y.o. female who presents for follow up medical nutritional therapy for weight loss surgery. Weight Change 12/05/2023 Weight: (!) 163.5 kg (360 lb 6.4 oz) Weight Change: up 1.4 pounds in 1 month Shira's lost his job, so she started working with [employer] and [employer]. She finds this has really increased her daily activity. She is drinking just water. But with lack of funds shehas been using up foods in her house. She has applied for food stamps and hopes to get that soon. She has not tried food vega as the ones in her area only give starches. Discussed [facility]. Bariatric Medical Nutrition Therapy Goal [...] 1332 End time: 1355 documented in this encounterBrattleboro Memorial HospitalLe Lutin rouge.com03-27-2024 Instructions* Patient Instructions* Jenny Moise RD - 12/05/2023 1:30 PM EDT Read the [facility] Bariatric Guide. If you re looking for general health and wellness resources, please visit [email or web address]. documented in this encounterOhio State Health System02-29-2024 History of Present illness Narrative* Jenny Moise [...] all discussed has been provided within the [facility] Bariatric Guide. My contact name and number provided if questions or concerns arise. Nutrition Monitoring: To follow up in 1 month to show progress towards goals. Start time: 1122 End time: 1138 documented in this encounterOhio State Health System02-29-2024 Instructions* Patient Instructions* Jenny Moise RD - 11/08/2023 11:30 AM EST Read the [facility] Bariatric Guide. If you re looking for general health and wellness resources, please visit [email or web address] [email or web address]. documented in this encounterOhio State Health System02-16-2024 Evaluation note* Diagnosis PONV (postoperative nausea and vomiting)- Primary Nausea with vomiting Unable to assess patient's smoking status within the last 12 months Constipation, unspecified constipation type Vitamin D deficiency Chronic RUQ pain Abdominal pain, right upper quadrant documented in this encounter [facility]01-31-2024 History of Present illness Narrative* Theodora Early MD - 10/10/2023 8:15 AM EST Shira Jett Date of visit: 10/10/2023 Date of : [...] Patient presents with New Patient pre op fnp-ref from Tonia Manzo MD for pre op [...] apnea Pneumonia Preeclampsia, severe 11/23/2018 Pulmonary embolism (CMS-HCC) Shortness of breath No data recorded No [...] Referring Physician: Tonia Manzo MD [address] [facility] [place] [address] documented in this encounterOhio State Health System01-30-2024 History of Present illness Narrative* Jenny Nogueirasanford, RD - 10/09/2023 11:00 AM EST Bariatric [...] 1045 End time: 1108 documented in this encounterMagruder HospitalPredictive Biosciences01-30-2024 Instructions* Patient Instructions* Jenny Moise RD - 10/09/2023 11:00 AM EST Read the [facility] Bariatric Guide. If you re looking for general health and wellness resources, please visit [facility] [email or web address]. documented in this encounterOhio State Health System01-30-2024 Miscellaneous Notes* Telephone Encounter - Anne Ruiz CMA - 10/09/2023 10:27 AM EST Called patient to remind them to bring their most current copy of their medication list with them to their appt. Patient verbalizes understanding. documented in this encounterOhio State Health System01-30-2024 Telephone encounter Note* Telephone Encounter - Anne Ruiz CMA - 10/09/2023 10:27 AM EST Called patient to remind them to bring their most current copy of their medication list with them to their appt. Patient verbalizes understanding. [facility]01-[facility] History of Present illness Narrative* NEIL Mcgowan - 09/27/2023 11:45 AM EST Images from the original note were not included. * Jalyn Vidal DO - 09/27/2023 11:45 AM EST [facility] Pulmonary And Sleep Progress Note [...] clinic in 1 year earlier if needed LOGAN Silva presents for follow-up after her sleep study [...] Meds Medications Reviewed. Dr. Jalyn Vidal DO. [facility] Office: [phone] documented in this encounterMagruder HospitalHeart Health [facility] HospitalXcnfth27-33-1386 History of Present illness Narrative* Jenny Moise, MICHAEL - 09/06/2023 11:00 AM EST Bariatric [...] all discussed has been provided within the [facility] Guide. My contact name and number provided if questions or concerns arise. Nutrition Monitoring: To follow up in 1 month to show progress towards goals. Start time: 1100 End time: 1119 documented in this encounterOhio State Health System12-28-2023 Instructions* Patient Instructions* Jenny Moise RD - 09/06/2023 11:00 AM EST Read the [facility] Bariat[facility] Guide. If you re looking for general health and wellness resources, please visit [facility] community [email or web address]. documented in this encounterOhio State Health System02-24-2023 NoteOP Note OPERATION DATE: 11/03/2022 PROCEDURE: Diagnostic laparoscopy with removal of IUD. PREOPERATIVE DIAGNOSIS: Desires permanent sterilization, desires removal of IUD, multiparity. POSTOPERATIVE DIAGNOSIS: Desires permanent sterilization, desires removal of IUD, multiparity. ANESTHESIA: General. SURGEON: Bin Morales D.O. COMPUTER REPAIR TECHNICIAN: TIMOTEO Watson URINE OUTPUT: Yellow and clear. [...] was waken up and taken to recovery.[facility] [id number] Hospital Discharge instructions* Instructions* Tonia Wolfe PA-C - 12/05/2021 Follow outpatient tomorrow with doctor or by calling [phone] or [phone]. Return to ER immediately if symptoms worsen or persist. * Attachments The following attachments cannot be sent through Care Everywhere. * SOB (Shortness of Breath) (Uruguayan) documented in this [facility] System[facility] Home Taxi Work Phone: 1(991) 622-386903-24-2022 History of Present illness Narrative* Sonu Morales - 12/01/2021 4:13 PM EDT CLINICAL PHARMACY NOTE: MEDS TO BEDS Total # of Prescriptions Filled: 1 The following medications were delivered to the patient: xarelto starter pack Additional Documentation: * Camelia Medina MD - 12/01/2021 8:44 AM EDT Images from the original note were not included. [facility] Office: [phone] Cem Jenkins DO, Cyrus Canonn DO, Dave Roberts DO, Ervin Laguna DO, Checo Metzger MD, Jesusita Magallanes MD, Michael Louis MD, Echo Payan MD, Britni Lau MD, Rui Obrien MD, Francesca Santillan MD, Isidro Cruz DO, Rudi Molina DO, Camelia Medina MD, Bonnie Verdugo DO, MD [place], Rashad Downing MD, Yifan Clements MD, Hamlet Jenkins DO, Suman Mclaughlin MD, Antonio Burr MD, Nevaeh Wisdom, ANNEALING TORCH OPERATOR, Violet Mojica, ANNEALING TORCH OPERATOR, Ysabel Steen, ANNEALING TORCH OPERATOR, Jami Heard, ELECTRONICS WORKER, Timothy Hill, ANNEALING TORCH OPERATOR, Tayler Watts, ANNEALING TORCH OPERATOR, Grecia Chavez, ANNEALING TORCH OPERATOR, Shira Payne, ANNEALING TORCH OPERATOR, Sergio Steiner, ANNEALING TORCH OPERATOR, Alok Reese PA-C, Nilam Valdes, DNP, Oriana Montero, DNP, Krystina Gil, ANNEALING TORCH OPERATOR, Georgina Dale, ANNEALING TORCH OPERATOR, Stacy Velazquez, ANNEALING TORCH OPERATOR [facility] IN-PATIENT SERVICE [facility] Progress Note 12/01/2021 8:44 AM Name: Shira Leone Acct: [id number] Room: Day: 1 Admit Date: 11/30/2021 7:38 [...] Brief History: 26-year-old female recently delivered at [facility] around 11/24/2021 was transferred to [facility] for blood pressure management due [...] DDIMER 1.73* -- -- Chemistry: Recent Labs 11/30/21202011/30/21202011/30/21220112/01/21812/01/21357 NA 134* -- -- -- 137 K [...] in this interval not displayed. Recent Labs 11/30/21202012/01/2135712/01/214 PROT 6.9 6.3* -- LABALBU 3.7 3.4* -- TSH -- 2.20 -- AST 15 16 -- ALT 31 28 -- LDH 171 -- -- ALKPHOS 102 93 -- BILITOT 0.21* 0.18* -- URICACID 8.0* -- -- POCGLU -- -- 91 ABG:No results found for: POCPH, PHART, PH, POCPCO2, HUR6OOJ, PCO2, POCPO2, PO2ART, PO2, POCHCO3, BVP2DRY, HCO3, NBEA, PBEA, BEART, BE, THGBART, THB, XMT5KEW, DNTK1CLD, O5NNILSI, O2SAT, FIO2 No results found for: SPECIAL [...] were called by Dr. Ernie Gamino to ANNEALING TORCH OPERATOR Bandar Vaughan on 11/30/2021 at 10:54 p.m. [...] DVTs requiring what appears to be a [place] filter in place. Due to insurance patient [...] Vitals obtained. Orders released. documented in this [facility] SystemRedbeacon Phone: 1(479) 230-436203-24-2022 Hospital Discharge instructions* Discharge Instr - Activity* [...] at most local grocery stores, pharmacies, and [employer]. If you have any questions about your diet or nutrition, call the hospital and ask for the dietitian. * Attachments The following attachments cannot be sent through Care Everywhere. * Pulmonary Embolism (Uruguayan) * rivaroxaban (Uruguayan) * Blood Clots: Inpatient: Quick List (Uruguayan) * Blood Clots and : General Info (Uruguayan) documented in this [facility] SystemTake [facility] Home Taxi Work Phone: 1(365) 564-549303-22-2022 History of Present illness Narrative* Milana Luong [...] patient Attending Physician: Dr. Reji Flores DO Medicaid Biller Resident 11/29/2021, 2:15 AM * Adeola Gupta [...] patient Attending Physician: Dr. Candy Flores DO Medicaid Biller Resident 11/28/2021, 4:22 AM Date: 11/28/2021 Time: 7:32 PM Patient Name: Shira Leone Patient : [id number] Room/Bed: [facility]/0702- Admission Date/Time: 11/26/2021 2:06 AM Attending Physician [...] patient Attending Physician: Dr. Mauricio Moore DO Medicaid Biller Resident 11/27/2021, 6:13 AM Attending Physician Statement [...] Continue to monitor closely Brandie Moore DO Medicaid Biller Resident 11/26/2021, 7:15 PM * Brandie Moore [...] Pulse: 81 88 85 81 Resp: 16 18 16 Temp: 97.5 F (36.4 C) TempSrc: [...] Continue to monitor closely Brandie Moore DO Medicaid Biller Resident 11/26/2021, 3:10 PM * Juliana Leyva [...] Date MG 1.9 11/25/2021 BMP: Recent Labs 11/25/21205422 0310 NA 137 137 K 4.2 3.7 [...] - Continue to monitor Juliana Leyva DO Medicaid Biller Resident 11/26/2021, 10:02 AM * Jenifer Maki DO - 11/26/2021 8:51 AM EDT Obstetric/Gynecology Resident Interval Note Notified by RN of severe range blood pressures. Will treat with IV labetalol 20 mg and add Procardia 30 mg XL. Jenifer Maki DO RECAPPER Resident, PGY3 [place], [place] 11/26/2021, 8:51 AM * Juany Salmeron [...] ALT/AST 44/29>44.26, P/C 0.35 Juany Salmeron DO Medicaid Biller Resident 11/26/2021, 6:54 AM documented in this [facility] Phone: 1(531) 352-216103-21-2022 Hospital Discharge instructions* Instructions* Mich Duran DO [...] most return to normal levels over the fpc. Take and record your blood pressure at [...] you have had preeclampsia, you have a hbutii-puxq-qppbksw risk of heart disease, stroke, and kidney [...] Where can you learn more? Go to [email or web address] and sign in to your [employer] account. Enter Q718 in the Search Health Information box to learn more about Learning About Preeclampsia After Childbirth. If you do not have an account, please click on the Sign Up Now link. Current as of: February 23, 2021 Content Version: 13. [employer]. Care instructions adapted under license by [employer]. If you have questions about a medical condition or this instruction, always ask your healthcare professional. [employer] disclaims any warranty or liability for your use of this information. documented in this encounterSustainX Phone: evaluation note* Diagnosis Preeclampsia in period- Primary documented in this encounter [employer] Phone: evaluation note* Diagnosis Hx PP Pre E w/ SF- Primary Anemia Anemia, unspecified Depression/Anxiety Depressive disorder, not elsewhere classified Hx GDM Abnormal maternal glucose tolerance, complicating , childbirth, or the puerperium, unspecified as to episode of care FHx DM documented in this encounter [employer] Phone: evaluation note* Diagnosis Acute pulmonary embolism, unspecified pulmonary embolism type, unspecified whether acute cor pulmonale present ([facility]) Class 3 severe obesity due to excess calories with serious comorbidity and body mass index (BMI) of50.0 to 59.9 in adult ([facility]) Thyroid nodule Nontoxic uninodular goiter documented in this encounter [employer] Phone: evaluation note* Diagnosis Shortness of breath- Primary documented in this encounter [employer] Phone: evaluation note* Diagnosis Acute cystitis with hematuria- Primary Dysuria documented in this encounter [facility] HealthcareEvaluation note* Diagnosis Non-recurrent acute serous otitis media of left ear- Primary Bariatric surgery status Vitamin D deficiency Iron deficiency anemia, unspecified iron deficiency anemia type documented in this encounter [facility] HealthcareEvaluation note* Diagnosis Influenza A- Primary Influenza with other respiratory manifestations Fever, unspecified fever cause documented in this encounter [facility] HealthcareEvaluation note* Diagnosis Pre-bariatric surgery nutrition evaluation- Primary Morbid obesity ([facility]) Morbid obesity documented in this encounter [facility] SystemEvaluation note* Diagnosis Pre-bariatric surgery nutrition evaluation- Primary Morbid obesity ([facility]) Morbid obesity documented in this encounter [facility] SystemEvaluation note* Diagnosis Preop testing- Primary Unspecified pre-operative examination documented in this encounter [facility]wo[facility] SystemEvaluation note* Diagnosis Mild intermittent asthma, unspecified whether complicated- Primary LUCIANO on CPAP documented in this encounter [facility] SystemEvaluation note* Diagnosis Pre-bariatric surgery nutrition evaluation- Primary Morbid obesity ([facility]) Morbid obesity documented in this encounter [facility] SystemEvaluation note* Diagnosis Preop testing- Primary Unspecified pre-operative examination LUCIANO on CPAP History of pulmonary embolism Personal history of venous thrombosis and embolism Class 2 severe obesity due to excess calories with serious comorbidity in adult, unspecified BMI ([facility]) Essential hypertension Unspecified essential hypertension documented in this encounter [facility] SystemEvaluation note* Diagnosis Pre-bariatric surgery nutrition evaluation- Primary Morbid obesity ([facility]) Morbid obesity documented in this encounter [facility] SystemEvaluation note* Diagnosis Pre-bariatric surgery nutrition evaluation- Primary Morbid obesity ([facility]) Morbid obesity documented in this encounter [facility]* Diagnosis Preop cardiovascular exam- Primary Pre-operative cardiovascular examination documented in this encounter [facility]* Diagnosis Preop testing- Primary Unspecified pre-operative examination documented in this encounter [facility]* Diagnosis Pre-op testing- Primary Unspecified pre-operative examination documented in this encounter [facility]* Diagnosis Constipation, unspecified constipation type- Primary documented in this encounter [facility]* Diagnosis Class 3 severe obesity with body mass index (BMI) of 60.0 to 69.9 in adult ([facility])- Primary Class 3 severe obesity due to excess calories with serious comorbidity and body mass index (BMI) of60.0 to 69.9 in adult ([facility]) History of pulmonary embolism Personal history of venous thrombosis and embolism Acute post-operative pain documented in this encounter [facility]* Diagnosis Dietary counseling and surveillance- Primary Morbid obesity ([facility]) Morbid obesity Malnutrition following gastrointestinal surgery Other and unspecified postsurgical nonabsorption Postsurgical malabsorption documented in this encounter [facility]* Diagnosis LUCIANO on CPAP- Primary H/O gastric bypass Postoperative malabsorption Malnutrition following gastrointestinal surgery Other and unspecified postsurgical nonabsorption documented in this encounter [facility]* Diagnosis Morbid obesity with BMI of 60.0-69.9, adult ([facility])- Primary Dietary counseling and surveillance- Primary Malnutrition following gastrointestinal surgery Other and unspecified postsurgical nonabsorption Postsurgical malabsorption H/O gastric bypass documented in this encounter [facility]* Diagnosis Dietary counseling and surveillance- Primary Malnutrition following gastrointestinal surgery Other and unspecified postsurgical nonabsorption Postsurgical malabsorption H/O gastric bypass [facility] Diagnosis Malnutrition following gastrointestinal surgery- Primary Other and unspecified postsurgical nonabsorption Postsurgical malabsorption H/O gastric bypass B12 deficiency documented in this encounter [facility]* Diagnosis Malnutrition following gastrointestinal surgery- Primary Other and unspecified postsurgical nonabsorption Postsurgical malabsorption H/O gastric bypass History of anemia Personal history of diseases of blood and blood-forming organs documented in this encounter [facility]* Diagnosis History of Bonnie-en-Y gastric bypass- Primary Postsurgical malabsorption Malnutrition following gastrointestinal surgery Other and unspecified postsurgical nonabsorption History of anemia Personal history of diseases of blood and blood-forming organs B12 deficiency documented in this encounter [facility]* Diagnosis Missed menses , unspecified gestational age ([facility]) Encounter for supervision of normal first in first trimester ([facility]) Nausea Nausea alone documented in this encounter [facility]* Diagnosis Second trimester ([facility]) state, incidental 14 weeks gestation of ([facility]) Primary hypertension Unspecified essential hypertension H/O gastric bypass History of diet controlled gestational diabetes mellitus (GDM) Diabetes mellitus screening Screening for diabetes mellitus documented in this encounter [facility] HealthcareEvaluation note* Diagnosis Well woman exam with routine gynecological exam Routine gynecological examination Screening, , for anatomic survey ([facility]) Encounter for anatomic survey Second trimester ([facility]) state, incidental 17 weeks gestation of ([facility]) Vaginal discharge Leukorrhea, not specified as infective STD exposure documented in this encounter [facility]* Diagnosis Anxiety Anxiety state, unspecified documented in this encounter [facility] HealthcareEvaluation note* Diagnosis History of maternal pulmonary embolus- Primary Personal history of venous thrombosis and embolism 20 weeks gestation of Chronic hypertension affecting History of pre-eclampsia in prior , currently in second trimester History of gestational diabetes in prior , currently in second trimester History of prediabetes Bariatric surgery status complicating , second trimester Severe obesity due to excess calories affecting , antepartum ([facility]) Obstructive sleep apnea Obstructive sleep apnea (adult) (pediatric) History of gestational diabetes in prior , currently with other poor obstetric history Depression affecting Anxiety disorder affecting , antepartum documented in this encounter [facility]* Diagnosis 20 weeks gestation of - Primary Chronic hypertension affecting History of pre-eclampsia in prior , currently in second trimester History of gestational diabetes in prior , currently in second trimester History of prediabetes Bariatric surgery status complicating , second trimester Severe obesity due to excess calories affecting , antepartum ([facility]) History of maternal pulmonary embolus Personal history of venous thrombosis and embolism Obstructive sleep apnea Obstructive sleep apnea (adult) (pediatric) History of gestational diabetes in prior , currently with other poor obstetric history Depression affecting Anxiety disorder affecting , antepartum documented in this encounter [facility]* Diagnosis History of Bonnie-en-Y gastric bypass Postsurgical malabsorption Malnutrition following gastrointestinal surgery Other and unspecified postsurgical nonabsorption Folate deficiency Other B-complex deficiencies Iron deficiency Disorders of iron metabolism documented in this encounter [facility]* Diagnosis 21 weeks gestation of ([facility]) Well woman exam Routine general medical examination at a health care facility Second trimester ([facility]) state, incidental Screen for STD (sexually transmitted disease) Screening examination for venereal disease Well woman exam with routine gynecological exam Routine gynecological examination Diabetes mellitus screening Screening for diabetes mellitus Iron deficiency anemia, unspecified iron deficiency anemia type documented in this encounter [facility] HealthcareEvaluation note* Diagnosis Gallstones and inflammation of gallbladder without obstruction- Primary Calculus of gallbladder with acute cholecystitis, without mention of obstruction Second trimester ([facility]) state, incidental 23 weeks gestation of ([facility]) History of diet controlled gestational diabetes mellitus (GDM) Preeclampsia in period ([facility]) History of pulmonary embolism Personal history of venous thrombosis and embolism Primary hypertension Unspecified essential hypertension Diabetes mellitus screening Screening for diabetes mellitus documented in this encounter [facility] note* Diagnosis History of gestational diabetes in prior , currently in second trimester- Primary History of prediabetes History of gestational diabetes in prior , currently with other poor obstetric history [facility] Dis[facility] instructionsNot on filedocumented in this [facility] SystemInstructionsNot on filedocumented in this [facility] SystemInstructionsNot on filedocumented in this encounter[facility] SystemInstructionsNot on filedocumented in this encounterProMed[facility] Health [...] SystemInstructionsNot on filedocumented in this encounterProMedica Health SystemReason for visit Narrative* Consultation (Routine) - Pending ReviewSpecialtyDiagnoses / ProceduresReferred By Contact Referred To ContactNutrition Diagnoses Morbid obesity ([facility]) Pre-bariatric surgery nutrition evaluation Preop testing Tonia Manzo MD [address] [place] [address] Referral IDStatusReasonStart DateExpiration DateVisits RequestedVisits [id number] Review Special[facility] Required [facility] SystemReason for [facility] Narrative* Consultation (Routine) - Pending ReviewSpecialtyDiagnoses / ProceduresReferred By ContactReferred To ContactNutrition Diagnoses Malnutrition following gastrointestinal surgery Postsurgical malabsorption Tonia Manzo MD [address] [facility], [address] [address] Referral IDStatusReasonStart DateExpiration DateVisits RequestedVisits [id number] Review Specialty Services Required [facility] Summary Purpose Family History No Family History Records FoundNo Family History Records FoundNo Family History Records FoundNo Family History Records FoundNo Family History Records FoundNo Family History Records FoundNo Family History Records FoundNo Family History Records Found Advance Directives Code StatusDate ActivatedDate InactivatedCommentsFull Code11/26/2021 6:26 AMCode StatusDate ActivatedDate InactivatedCommentsFull Code11/30/2021 11:58 PMFull Code 11/26/2021 6:26 AM11/29/2021 1:42 PMCode StatusDate ActivatedDate Inactivated CommentsFull Code11/30/2021 11:58 PM12/01/2021 6:28 PMCode StatusDate Activated Date InactivatedCommentsFull Code07/30/2022 11:42 PM07/31/2022 2:48 PMCode StatusDate ActivatedDate InactivatedCommentsFull Code11/24/2018 10:44 PM11/27/2018 4:48 PMDate ActivatedDate LeegtxntmatRmutbsbk12/20/2022 11:42 PM07/31/2022 2:48 PMDate ActivatedDate InactivatedComments11/24/2018 10:44 [...] Procedures Discharge Follow-Up Moriah Guthrie PA-C [address] [id number] Referral IDStatusReasonStart DateExpiration DateVisits RequestedVisits [id number] / ProceduresReferred By ContactReferred To Contact Procedures No dressing needed Moriah Guthrie PA-C [address] [address] Referral IDStatusReasonStart DateExpiration DateVisits RequestedVisits [id number] / ProceduresReferred By ContactReferred To Contact Procedures Hygiene Moriah Guthrie PA-C [address] [address] Referral IDStatusReasonStart DateExpiration DateVisits RequestedVisits [id number] / ProceduresReferred By ContactReferred To Contact Procedures Adult diet Moriah Guthrie PA-C [address] [address] Referral IDStatusReasonStart DateExpiration DateVisits RequestedVisits [id number] Review Additional Source Comments INFORMATION SOURCE (unrecogn ized section and content) DATE CREATED AUTHOR 01/10/2019 [facility] DATE CREATED AUTHOR AUTHOR'S ORGANIZ ATION 12/06/2021 [facility] DATE CREATED AUTHOR AUTHOR'S ORGANIZ ATION 01/16/[address] [facility] DATE CREATED AUTHOR AUTHOR'S ORGANIZ ATION 11/16/2022 [facility] DATE CREATED AUTHOR AUTHOR'S ORGANIZ ATION 09/30/2023 [facility] DATE CREATED AUTHOR AUTHOR'S ORGANIZ ATION 06/12/2025 [facility] DATE CREATED AUTHOR AUTHOR'S ORGANIZ ATION 06/24/2025 [facility] DATE CREATED AUTHOR AUTHOR'S ORGANIZ ATION 06/26/2025 [facility] Reason for Visit (unrecogniz ed section and content) ReasonCommentsChest Painpressure in center of chest. gave on 11/21/21. Hypertensionon 200 mg labetalol daily.ReasonCommentsHypertensionSpecialty Diagnoses / ProceduresReferred By ContactReferred To Contact Diagnoses Preeclampsia in period Isidro Chester DO [address] [address] [facility] [id number] [place] [address] Ref[facility]Status[facility] DateExpiration DateVisits RequestedVisits [id number] Painonset this morning, was admitted for preeclampsiaShortness of BreathSpecialtyDiagnoses / ProceduresReferred By ContactReferred To Contact Diagnoses Right pulmonary embolus (HCC) Acute pulmonary embolism, unspecified pulmonary embolism type, unspecified whether acute cor pulmonale present (HCC) [place] [address] [place] [address] [facility] [id number] [place] [address] Referral IDStatusReasonStart DateExpiration DateVisits RequestedVisits [id number] of Breathrecently dx with pulmonary embolism. pt [...] Contact Referred To ContactNutrition Diagnoses Morbid obesity ([facility]) Pre-bariatric surgery nutrition evaluation Preop testing Tonia Manzo MD [address] [facility], [address] [address] Referral IDStatusReasonStart DateExpiration DateVisits RequestedVisits [id number] Review Specialty Services Required [id number] ApneaDME: MSCComplianceAsthmaReason CommentsNew Patientpre op fnp-ref from Tonia Manzo MD for pre op for bariatric surgery-patient has no date/time/place set for surgery-never seen cardiology-no covid-no cardiac devices-echo/labs done at [facility]-sched wt pt SpecialtyDiagnoses / ProceduresReferred By ContactReferred To ContactCardiology Diagnoses Preop testing Tonia Manzo MD [address] [facility] [address] [place] [address] [facility] [address] [place] [address] Referral IDStatusReasonStart DateExpiration DateVisits RequestedVisits [id number] Review Specialty Services Required 1Referral IDStatusReasonStart DateExpiration DateVisits RequestedVisits [id number] Specialty Services Required 6/15/13398/14/88689052DwmfguZtubvpbcIec-uk ExamPreop Bariatric surg Dr. Shirley ReasonCommentsConsultSign consentSpecialtyDiagnoses / ProceduresReferred By ContactReferred To Contact Diagnoses MORBID OBESITY/HYPERTENSION Procedures AR LAP GASTRIC BYPASS/BONNIE-EN-Y DAVINCI DV5 BYPASS GASTRIC BONNIE-EN Y Tonia Manzo MD [address] [facility], [place] [address] Referral IDStatusReasonStart DateExpiration DateVisits RequestedVisits [id number] DateCommentsbloody mocus4ReasonComments Post-op1 week RYGB; feels tired;40 ounces of fluids; 2 protein shakes a day, struggles with the evening protein shakeReasonCommentsPatient EducationPre op bariatric surgery education bsukcNelqlfToinjawhXnbmolvzxE07 lessonReasonComments Follow-upLATE 6 MONTH bypass Anais 04/23/[id number] INJECTIONReasonComments Routine VisitReasonCommentsMed RefillReasonCommentsHx PEHx Gastric BypassAnemiaAsthmaHx [...] Sun11/25/21 at 2130, For 1 dose * 0 (Given - Provider: Mark Aguillon RN) magnesium [...] * 2211 (New Bag - Provider: Sabina Glover RN) * 2223 (Stopped - Provider: Sabina Glover RN) * 2226 (New Bag - Provider: Sabina Glover RN) * 2240 (Stopped - Provider: Sabina Glover RN) Medication Order/// calcium gluconate 10 % injection 1,000 mg [...] LEANDRO) * 0900 (Given - Provider: Nilam Montes, LEANDRO) ferrous sulfate (FE TABS 325) EC tablet 325 mg 325 mg, Oral, DAILY WITH BREAKFAST, First dose on Sun11/26/21 at 0800 * 0938 (Given - Provider: Gale Saravia RN) * 0847 (Given - Provider: Liyah Asher, LEANDRO) * 0759 (Given - Provider: Nilam Montes, LEANDRO) hydrALAZINE (APRESOLINE) injection 10 mg (COMPLETED) 10 mg, IntraVENous, ONCE, On 11/27/21 at 2000, For 1 dose * 1938 (Given - Provider: Radha Correa RN) hydrALAZINE (APRESOLINE) injection 10 mg (COMPLETED) 10 mg, IntraVENous, ONCE, On 11/28/21 at 0145, For 1 dose * 0129 (Given - Provider: May Malone, LEANDRO) hydrALAZINE (APRESOLINE) injection 10 mg (COMPLETED) 10 mg, IntraVENous, ONCE, On Sun11/28/21 at 0230, For 1 dose * 0226 (Given - Provider: May Malone, LEANDRO) hydrALAZINE (APRESOLINE) injection 10 mg (COMPLETED) 10 mg, IntraVENous, ONCE, On Sun11/28/21 at 1600, For 1 dose * 1539 (Given - Provider: Liyah Asher, ELANDRO) labetalol (NORMODYNE) tablet 400 mg (CANCELED) 400 mg, Oral, EVERY 8 HOURS, First dose on 11/26/21 at 0415 * 0409 (Given - Provider: Soco Navarro RN) * 1258 (Given - Provider: Gale Saravia, [...] dose * 1041 (Given - Provider: Gale Saravia RN) labetalol (NORMODYNE;TRANDATE) injection 20 mg (COMPLETED) 20 mg, IntraVENous, ONCE, On 11/27/21 at 1730, For 1 dose * 1712 (Given - Provider: Gale Saravia RN) labetalol (NORMODYNE;TRANDATE) injection 20 mg (COMPLETED) 20 mg, IntraVENous, ONCE, On Sun11/28/21 at 0315, For 1 dose * 0254 [...] break. * 2053 (Given - Provider: Radha Correa RN) NIFEdipine (PROCARDIA XL) extended release tablet 90 mg 90 mg, Oral, DAILY, First dose on Sun11/28/21 at 0900, Do not crush or break. * 0810 (Given - Provider: Liyah Asher RN) * 0900 (Given - Provider: Nilam Montes, LEANDRO) vitamin plus iron 29-1 MG tablet 1 tablet 1 tablet, Oral, DAILY, First dose on Sun11/26/21 at 0900 * 0938 (Given - Provider: Gale Saravia RN) * 0847 (Given - Provider: Liyah Asher, LEANDRO) * 0900 (Given - Provider: Nilam Montes RN) sodium chloride flush 0.9 % injection 5-40 mL 5-40 mL, IntraVENous, EVERY 12 HOURS SCHEDULED (2 times per day), First dose on Sun11/26/21 at 0900, For Line Patency: Peripheral IV [...] mL/lumen * 1053 (Given - Provider: Gale Saravia, RN) * 2053 (Given - Provider: Radha Correa RN) * 0848 (Given - Provider: Liyah Asher, LEANDRO) * 2111 (Given - Provider: Emma Borja, LEANDRO) * 09 (Given - Provider: Nilam Montes, LEANDRO) * 2100 (Due) Medication Order// 0.9 % [...] RN) * 0815 (Given - Provider: Liyah Asher, LEANDRO) * 2111 (Given - Provider: Emma Borja, LEANDRO) * 0713 (Given - Provider: Nilam Montes RN) calcium carbonate (TUMS) chewable tablet 1,000 mg [...] 2324 * 0013 (Given - Provider: Soco Navarro, LEANDRO) hydrOXYzine (ATARAX) tablet 25 mg 25 mg, Oral, 3 TIMES DAILY PRN, Itching, Anxiety, Starting on 11/27/21 at 2038 * 2054 (Given - Provider: Radha Correa, [...] 2100 * 2200 (Given - Provider: Emma Borja RN) [...] mL/lumen * 0939 (Given - Provider: Gale Saravia, LEANDRO) Medication Order/ labetalol (NORMODYNE;TRANDATE) 5 MG/ML injection (COMPLETED) Starting on 11/27/21 at 1722, For 1 dose, Gale Saravia: cabinet override * 1724 (Given - Provider: Gale Saravia RN) Medication Order// 0.9 % sodium chloride bolus (COMPLETED) 1,000 mL (7.9 mL/kg), IntraVENous, at 1,000 mL/hr, Administer over 1 Hours, ONCE, On Sun11/30/21 [id number], For 1 dose * 2026 (New Bag - Provider: Casandra Maddox RN) * 2126 (Stopped - Provider: Casandra Maddox RN) 0.9 % sodium chloride bolus (COMPLETED) 80 mL (0.632 mL/kg), IntraVENous, at 80 mL/hr, Administer over 1 Hours, ONCE, On Sun11/30/21 at 2145, For 1 dose * 2212 (New Bag - Provider: Juhi Yuan) * 2216 (Stopped - Provider: Juhi Yuan) apixaban (ELIQUIS) tablet 10 mg (CANCELED) 10 mg, Oral, 2 TIMES DAILY, 14 doses, First dose on Sun12/01/21 at 0900, Last dose on Sun12/07/21 at 2100, ANTICOAGULANT * 0905 (Given - Provider: Stacy Conley RN) aspirin EC tablet 325 mg 325 mg, Oral, DAILY, First dose on Sun12/01/21 at 0015, Until Discontinued, Please give ASA dose upon admission if not done in ER then DAILY * 0124 (Given - Provider: Afsaneh Oviedo RN) citalopram (CELEXA) tablet 10 [...] IV Fluid Infusing) * 2100 (Due) Medication Order11/29/ heparin 25,000 units in dextrose 5% 250 [...] . * 0125 (Rate/Dose Verify - Provider: Afsanhe Oviedo RN) * 0730 (Rate/Dose Verify - [...] mg,Oral, DAILY WITH DINNER, First dose on Belkis [...] with CrCl less than 30 mL/min.
Medication Order12/03//// HYDROcodone-acetaminophen (NORCO) 5-325 MG per tablet 1 tablet (COMPLETED) 1 tablet, Oral, ONCE, 1 dose, On Sun12/05/21 at 1600, Maximum dose of acetaminophen is 4000 mg fromall sources in 24 hours. * 1604 (Given - Provider: Leatha Larsen RN) Medication Order04/22//// acetaminophen (TYLENOL EXTRA STRENGTH) tablet 1,000 mg (COMPLETED) 1,000 mg, oral, Once, On Sun04/23/24 at 0800, For 1 dose, Pre-op * 0830 (Given - Provider: Essence Schulz RN) aprepitant (EMEND) capsule 40 mg (COMPLETED) 40 mg, oral, Once, On Sun04/23/24 at 0800, For 1 dose, Pre-op * 0831 (Given - Provider: Essence Schulz RN) busPIRone (BUSPAR) tablet 15 mg 15 mg, oral, 2 times daily, First dose on Sun04/23/24 at 2100, Look-alike/sound-alike medication - verify indication for use. Avoid grapefruit juice. * 2125 (Given - Provider: Macrina Armenta RN) * [...] * 212 (Given - Provider: Macrina Armenta, RN) enoxaparin [...] * 0837 (Given - Provider: Olga Montana, RN) * 1310 (Given - Provider: Olga Montana, [...] hours. * 1444 (Given - Provider: Staci Dey, RN) * 2125 (Given - Provider: Macrina Armenta, RN) * 0324 (Given - Provider: Macrina Armenta, RN) * 0837 (Given - Provider: Olga Montana, LEANDRO) lisinopriL (PRINIVIL,ZESTRIL) tablet 10 mg 10 mg, oral, Daily, First dose on Sun04/24/24 at 0900, Look-alike/sound-alike medication - verify indication for use. * 0837 (Given - Provider: Olga Montana RN) pantoprazole (PROTONIX) EC tablet [...] * 1238 (New Bag - Provider: Marielos Crocker RN) * 1308 (Stop Bag - Provider: Marielos Crocker, RN) Medication Order04/22//// lactated ringers infusion (CANCELED) 50 mL/hr, intravenous, Continuous, Starting on Sun04/23/24 at 0800, Pre-op, If fluid restriction isnot indicated, infuse at a rate up to 5 mL/kg/hr not to exceed the total replacement volume (2 ml/kg/hr) from the time NPO status was initiated. * 0833 (New Bag - Provider: Essence Schulz RN) * 2009 (Stop Bag - Provider: Macrina Armenta, RN) lactated ringers infusion 100 mL/hr, intravenous, Continuous, Starting on Sun04/23/24 at 1415 * 1444 (New Bag - Provider: Staci Dey, LEANDRO) * 1849 (Rate/Dose Verify - Provider: Staci Dey, RN) * 2009 (Rate/Dose Verify - Provider: Macrina Armenta, RN) * 2240 (Rate/Dose Verify - Provider: Macrina Armenta, RN) * 0012 (New Bag - Provider: Cherise Choudhury RN) * 0955 (New Bag - Provider: Olga Montana RN) Medication Order// albuterol (PROVENTIL,VENTOLIN) nebulizer solution 2.5 mg 2.5 [...] (unrec ognized section and content) PrescriptionSigDispensedRefillsStart DateEnd Date labetalol (NORMODYNE) 300 MG tablet Take 2 tablets by mouth 4 times daily 60 tablet NIFEdipine (PROCARDIA XL) 90 MG extended release tablet Take 1 tablet by mouth daily 30 tablet citalopram (CELEXA) 10 MG tablet Take 1 tablet by mouth daily 30 tablet NIFEdipine (PROCARDIA XL) 60 MG extended release tablet Take 1 tablet by mouth daily 30 tablet / labetalol (NORMODYNE) 300 MG tablet Take 2 tablets by mouth in the morning, at noon, and at bedtime 60 tablet NIFEdipine (PROCARDIA XL) 30 MG extended release tablet Take 1 tablet by mouth daily 30 tablet labetalol (NORMODYNE) 200 MG tablet Take 3 tablets by mouth in the morning, at noon, and at bedtime 120 tablet rescriptionSigDispensedRefillsStart rivaroxaban 15 & 20 MG Starter Pack Take as directed on package. 1 each apixaban starter pack (ELIQUIS DVT/PE STARTER PACK) 5 MG TBPK tablet Take 1 tablet by mouth See Admin Instructions 74 tablet Care Teams (unrecognized sec tion and content) Team MemberRelationshipSpecialtyStart DateEnd Date Riddhi Plata MD [address] [place] [address] PCP - GeneralFamily Medicine01/16/23Te MemberRelationshipSpecialtyStart DateEnd Date Riddhi Plata MD [address] [place] [address] PCP - GeneralFamily Medicine01/16/23 MemberRelationshipSpecialtyStart DateEnd Date Riddhi Plata MD [address] [place] [address] PCP - GeneralFamily Medicine01/16/23 MemberRelationshipSpecialtyStart DateEnd Date Riddhi Plata MD [address] [place] [address] PCP - GeneralFamily Medicine01/16/23Te MemberRelationshipSpecialtyStart DateEnd Date Riddhi Plata MD [address] [place] [address] PCP - GeneralFamily Zlesgulo08/18/22Team MemberRelationshipSpecialtyStart Date End Date Riddhi Plata MD [address] [place] [address] PCP - GeneralFamily Medicine12/09/23Team MemberRelationshipSpecialtyStart DateEnd Date Riddhi Plata MD [address] [place] [address] PCP - GeneralFamily Medicine12/09/23Team MemberRelationshipSpecialtyStart DateEnd Date Riddhi Plata MD [address] [place] [address] PCP - GeneralFamily Irrzmnbz46/18/22Team MemberRelationshipSpecialtyStart Date End Date Riddhi Plata MD [address] [place] [address] PCP - GeneralFamily Yehfigfv19/18/22Team MemberRelationshipSpecialtyStart Date End Date Riddhi lPata MD [address] [place] [address] PCP - GeneralFamily Hbqgstnq53/18/22Team MemberRelationshipSpecialtyStart Date End Date Riddhi Plata MD [address] [place] [address] PCP - GeneralFamily Loiaobqn61/18/22Team MemberRelationshipSpecialtyStart Date End Date Riddhi Plata MD [address] [place] [address] PCP - GeneralFamily Mptuisnh06/18/22Team MemberRelationshipSpecialtyStart Date End Date Riddhi Plata MD [address] [place] [address] PCP - GeneralFamily Medicine12/09/23Team MemberRelationshipSpecialtyStart DateEnd Date Riddhi Plata MD [address] [place] [address] PCP - GeneralFamily Medicine12/09/23Team MemberRelationshipSpecialtyStart DateEnd Date Riddhi Plata MD [address] [place] [address] PCP - GeneralFamily Medicine12/09/23Team MemberRelationshipSpecialtyStart DateEnd Date Riddhi Plata MD [address] [place] [address] PCP - GeneralFamily Medicine12/09/23Team MemberRelationshipSpecialtyStart DateEnd Date Riddhi Plata MD [address] [place] [address] PCP - GeneralFamily Wbinewqk17/18/22Team MemberRelationshipSpecialtyStart Date End Date Riddhi Plata MD [address] [place] [address] PCP - GeneralFamily Medicine12/09/23Team MemberRelationshipSpecialtyStart DateEnd Date Riddhi Plata MD [address] [place] [address] PCP - GeneralFamily Jzjogmuw95/18/22Team MemberRelationshipSpecialtyStart Date End Date Riddhi Plata MD [address] [facility] [place] [address] PCP - GeneralFamily Medicine12/09/23Team MemberRelationshipSpecialtyStart DateEnd Date Riddhi Plata MD [address] [place] [address] PCP - GeneralFamily Medicine12/09/23Team MemberRelationshipSpecialtyStart DateEnd Date [...] DateEnd Date Riddhi Plata MD [address] [place] [facility] [place] [address] PCP - GeneralFamily Medicine01/16/23Team MemberRelationshipSpecialtyStart DateEnd Date Riddhi Plata MD [address] [place] [facility] [place] [address] PCP - GeneralFamily Medicine01/16/23Team MemberRelationshipSpecialtyStart DateEnd Date Riddhi Plata MD [address] [place] [address] PCP - GeneralFamily Medicine01/16/23Team MemberRelationshipSpecialtyStart DateEnd Date Riddhi Plata MD PCP - GeneralFamily Medicine12/09/23Team MemberRelationshipSpecialtyStart DateEnd Date Riddhi Plata MD PCP - GeneralFamily Medicine12/09/23Team MemberRelationshipSpecialtyStart DateEnd Date Riddhi Plata MD [facility]12/09/23Te MemberRelationshipSpecialtyStart DateEnd Date Riddhi Plata MD [facility]12/09/23Te MemberRelationshipSpecialtyStart DateEnd Date Riddhi Plata MD [address] [place] [facility] [place] [address] [facility]01/16/23Te MemberRelationshipSpecialtyStart DateEnd Date Riddhi Plata MD [address] [place] [facility] [place] [address] [facility]01/16/23Te MemberRelationshipSpecialtyStart DateEnd Date Riddhi Plata MD [facility]12/09/23Te MemberRelationshipSpecialtyStart DateEnd Date Riddhi Plata MD [address] [place] [facility] [place] [address] [facility]01/16/23Te MemberRelationshipSpecialtyStart DateEnd Date Riddhi Plata MD [facility]12/09/23 FOR RECORDS PERTAINING TO PATIENTS WHO ARE [...] BE BASED ON THE PRIMARY CLINICAL RECORDS. Agent [facility]. provides no warranty or guarantee of the accuracy or completeness of information in this document.
--- OUTSIDE RECORDS SUMMARY | 2025-07-05 19:37 | XMS_ITS | Encounter Summary ---
Author Organization [facility] tem Address [id number] [place] [address] Care Team Providers Care Sledger Name Role Phone Riddhi Plata MD Primary Care Provider [phone] Encounter Details DateTypeDepartmentCare Team (Latest Contact Info)Rrpkszatebq11/13/2025Telephone Maternal- Medicine at [facility] [address] [facility] [place] [id number] Winter Gibbons LPN Social History Tobacco UseTypesPacks/DayYears UsedDateSmoking Tobacco: NeverSmokeless Tobacco: NeverAlcohol UseStandard Drinks/WeekCommentsNot Currently0 (1 standard drink = 0.6 oz pure alcohol)[facility] UtilitiesAnswerDate RecordedIn the past 12 months has the [employer], gas, oil, or water [employer] threatened to shut off services in your [...] care, and heating?Not hard at all06/23/2025PHQ-2AnswerDate RecordedTotal [id number] PRAPARE - TransportationAnswerDate RecordedIn the past 12 [...] of a household?No06/23/2025hildcareAnswerDate RecordedDo problems getting child welfare director make it difficult for you to work or study?No06/23/2025 EmploymentAnswerDate JbaeunbiOvyqgrprtjNnishym27/06/2019Hunger ScreeningAnswer Date RecordedWithin the past 12 months we worried whether our food would run out before we got money to buy more.Never True06/23/2025Within the past 12 months the food we bought just didn't last and we didn't have money to get more.Never True06/23/2025Purpose - LifeAnswerDate RecordedPurpose and direction in life Ntkdfmb25/27/2021Estimated Date of JbxfhwtwDfxdxcneJut82/06/2026Based on last menstrual period of 01/09/2025Sex and Gender InformationValueDate RecordedSex Assigned at [employer]53/20/2022 9:31 PM ESTLegal YtmMtvncn49/06/2015 11:49 AM EDTGender BisjjxhmXxaiye90/20/2022 9:31 PM ESTSexual OrientationStraight 07/30/2022 9:31 PM ESTdocumented as of this encounter Miscellaneous Notes * Telephone Encounter - Winter Gibbons LPN - 06/22/2025 3:41 PM EDT Left voicemail at [facility] pharmacy with my direct phone number to inquire why patient is unable to refill her Lovexox as the prior auth was approved by insurance last week. documented in this encounter Plan of Treatment DateTypeDepartmentCare Team (Latest Contact Info)Qvunksnukad79/30/2025 9:45 AM EDTAppointment [facility] - [facility] [address] [place] [address] 07/09/2025 11:30 AM EDTOffice Visit Maternal- Medicine at [facility] [address] [place] [address] Sana Lima MD [address] [place] [address] documented as of this encounter Goals GoalPatient [...]
--- OUTSIDE RECORDS SUMMARY | 2025-07-05 19:37 | XMS_ITS | Clinical Summary ---
Author Organization [facility] Healthcare Address [address] [place] [address] Care Team Providers Care Concrete Products Dispatcher Name Role Phone Riddhi Plata MD Primary Care Provider [phone] Allergies Active AllergyReactionsCriticalityNoted DateCommentsSumatriptanAnaphylaxis, UshesjcJsou76/21/2019 IMITREX FOR MIGRAINES Other Reaction(s): Other (See [...] 28-0.8 MG tablet Indications:, unspecified gestational age ([facility]),Encounter for supervision of normal first in first trimester ([facility])Take 1 tablet by mouth Daily 30 tablet 605003/20/2026ctive busPIRone (Buspar) 15 MG tablet Indications:AnxietyTAKE 1 TABLET BY MOUTH 2 TIMES A DAY (MORNING AND BEFORE BEDTIME) 180 tablet 1105Active labetalol (Normodyne) 200 MG tablet Indications:Pre-existing essential hypertension during , antepartum ([facility]),Primary hypertension,History of pulmonary embolismTAKE 1 TABLET BY MOUTH 3 TIMES A DAY IN THE MORNING, EVENING AND BEFORE BEDTIME 90 tablet tive labetalol (Normodyne) 200 MG tablet Indications:Pre-existing essential hypertension during , antepartum ([facility]),Primary hypertension,History of pulmonary embolismTake 1 tablet (200 mg) by mouth in the morning and 1 tablet (200 mg) in the evening and 1 tablet (200 mg) before bedtime. 90 tablet Discontinued acetaminophen-codeine (Tylenol w/ Codeine #3) 300-30 MG tablet Indications:Gallstones and inflammation of gallbladder without obstructionTake 1 tablet by mouth every 6 (six) hours if needed for severe pain for up to 5 days 20 tablet Expired Active Problems ProblemNoted DateDiagnosed DateH/O gastric mqxmes2004/20/20258455Sroldxe02/07/2023 Disorder of endocrine atgusk6605/17/2023Frequent jyxgnwrna59/07/2023Irregular cofoemq6805/17/2023Menorrhagia with regular cycle05/17/2023lass 3 severe obesity due to excess calories with serious comorbidity and body mass index (BMI) of50.0 to 59.9 in adult05/17/2023Nausea and idbpzbwj76/07/2023cute pulmonary embolism 05/17/2023Single subsegmental pulmonary embolism without acute cor pulmonale 05/17/2023Thyroid ikryqg8505/17/2023Urinary tract infection without hematuria 05/17/2023OSA on CPAP02/22/2023Morbid obesity with body mass index of 60.0-69.9 in adult01/26/2023olycystic ovarian pusbpwe3901/26/2023rimary hypertension 01/26/2023neumonia due to infectious tfuowsnj99/20/2022Family history of ixqwyitexg01/08/2022History of pulmonary /08/2022djustment disorder with bddxwar9411/30/2021History of diet controlled gestational diabetes mellitus (GDM)11/30/2021Family history of diabetes during htpvtacrp90/21/2022Preeclampsia in period ([facility])11/26/2021 Overview (05/17/2023): 11/29/21: Discharged home with Labetalol 600 QID and Procardia 90 XL qd. Pt has appt with Dr. Morales in [place] 11/30/21 for her PP appt. Pt has BP cuff at home already and would like to f/u with [facility] [employer] [facility] 12/09/21: Decreased to Labetalol 600 TID 12/26/21: Decreased to Procardia 90 XL qd. Iron deficiency hoeonu1612/29/2019Gastroesophageal reflux hiznmqb6812/15/2019 Seasonal allergic rhinitis due to lvtdqw8212/15/20191931Dwflyfr34/28/2019Anemia 06/26/20193182Bhmacptfkg86/04/2019 Overview (05/17/2023): Started on Celexa Gestational diabetes mellitus (GDM) ([facility])12/09/20189858Csnsvx18/01/2019 Estimated Date of ZfaubdtxOdfgcjedCtz21/06/2026Based on last menstrual period of 01/09/2025 Encounters DateTypeDepartmentCare UxooEaewbfusqfu66/22/2025Clinisync Result Encounter [facility] External Department Unsolicited Provider, Generic External Data 06/27/2025Refill [facility] [place] [address] Gonzalez Morales DO Pre-existing essential hypertension during , antepartum ([facility]); Primary hypertension; History of pulmonary eqswogda41/15/2025 1:40 [place] [address] Winter English PA Gallstones and inflammation of gallbladder without obstruction (Primary Dx); Second trimester ([facility]); 23 weeks gestation of ([facility]); History of diet controlled gestational diabetes mellitus (GDM); Preeclampsia in period ([facility]); History of pulmonary embolism; Primary hypertension; Diabetes mellitus uksavygyq35/14/2025Telephone [facility] [place] [facility] [address] [place] [address] Gonzalez Morales, DO 06/18/2025Orders Only [facility] [place] [facility] [address] [place] [address] Leslye Chairez LPN 06/10/2025 8:50 AM EDTRoutine N[facility] [place] [facility] [address] [place] [place] [address] Nena Spicer NP 21 weeks gestation of ([facility]); Well woman exam; Second trimester ([facility]); Screen for STD (sexually transmitted disease); Well woman exam with routine gynecological exam; Diabetes mellitus screening; Iron deficiency anemia, unspecified iron deficiency anemia type06/10/2025 Clinisync Result Encounter [facility] External Department Unsolicited Nena Spicer NP 06/10/2025amboo flowsheet [facility] [place] [facility] [address] [place] [address] Nena Spicer NP 06/02/2025bstract [facility] [place] [facility] [address] [place] [address] Gonzalez Morales, DO 06/01/2025External Result Encounter [facility] [place] [facility] [address] [place] [address] Gonzalez Morales, DO 05/25/2025Refill [facility] [address] [place] [address] Riddhi Plata MD Knrewlo3605/14/2025 8:30 AM EDTRoutine NOM[facility] [place] [facility] [address] [place] [address] Dannielle, Nena, [employer] Well woman exam with routine gynecological exam; Screening, , for anatomic survey ([facility]); Second trimester ([facility]); 17 weeks gestation of ([facility]); Vaginal discharge; STD kyuozepr95/02/2025bstract [facility] [place] [facility] [address] [facility] [place] [phone] Roseanne Jones MA 05/04/2025Telephone [facility] [place] [facility] [address] [place] [address] Maryana Orozco LPN 04/30/2025Telephone [facility] [place] [facility] [address] [facility] [place] [phone] Marva Cooney MA 04/27/2025Telephone [facility] [place] [facility] [address] [place] [address] Marva Cooney CA 04/20/2025 9:10 AM EDTRoutine [facility] [place] [facility] [address] [place] [address] Gonzalez Morales DO Second trimester ([facility]); 14 weeks gestation of ([facility]); Primary hypertension ; H/O gastric bypass; History of diet controlled gestational diabetes mellitus (GDM); Diabetes mellitus /11/2025amboo flowsheet [facility] [place] [facility] [address] [facility] [place] [address] Gonzalez Morales DO from Last 3 Months Immunizations ImmunizationAdministration DatesNext DueDTaP, Qilhlvuqgjj49/07/1999,10/23/1996, 01/17/1996,09/28/1995,03/28/1995HPV, Qwgpuqjgvcwu40/29/2009,02/05/2009, 12/01/2008Hep A, ped/adol, 2 dose02/08/2012,02/05/2009,12/01/2008Hep B, Adolescent or Wfwebhfua98/09/1996,09/28/1995,03/28/1995HiB, unspecified 10/23/1996,01/17/1996,09/28/1995,03/28/1995Influenza, injectable, quadrivalent, preservative free08/11/2019Influenza, seasonal, evwrmxthkp60/01/2011MMR 01/14/1999,03/28/1995Meningococcal PLQ8P1812/01/2008Polio, Fnbsqgqdhnd84/07/1999, 01/17/1996,09/28/1995,03/28/1995Tdap12/01/2008 Family History Medical HistoryRelationNameCommentsDiabetesFatherHypertensionFatherMental illnessFatherCancerMaternal GrandmotherHypertensionMotherDiabetesPaternal GrandfatherCancerPaternal KvnpokxwlpcEgztudnqCuzdSykwgmLkkjhnckAqxikyo7Qkdfgoef6 FatherAliveMaternal GrandmotherMotherAlivePaternal GrandfatherPaternal KzouinfbhhgHwonxd1Fyt1 Social History Tobacco UseTypesPacks/DayYears UsedDateSmoking Tobacco: NeverSmokeless Tobacco: Never Tobacco Cessation:Counseling Given: Not Answered Alcohol UseStandard Drinks/WeekCommentsNever0 (1 standard drink = 0.6 oz pure alcohol)Caffeine intake: 1-2 cups per day coffeeEstimated Date of VdrqomquCxnokaszTxw83/06/2026Based on last menstrual period of 01/09/2025Sex and Gender InformationValueDate RecordedSex Assigned at BirthNot on fileLegal Sex Lbictb1411/22/2022 9:44 PM EDTGender IdentityNot on fileSexual OrientationNot on file Last Filed Vital Signs Vital SignReadingTime TakenCommentsBlood Ikmuzplt348/7010 1:57 PM EDT Zunyc738010/10/2024 3:32 PM ESTTemperature--Respiratory Nyjd503110/10/2024 3:32 PM ESTOxygen Epdyfpnfee49%10/10/2024 3:32 PM ESTInhaled Oxygen Concentration-- Zgkxag588 kg (234 lb)06/24/2025 1:57 PM IYZNmdrim782.9 cm (5' 1 )10/10/2024 3:32 PM ESTBody Mass Index44.21010/10/2024 3:32 PM EST Plan of Treatment DateTypeDepartmentCare Team (Latest Contact Info)Ncmmexhczch00/29/2025 8:30 AM EDTRoutine [facility] [place] [facility] [address] [place] [address] Winter English PA [address] [place] [address] Health MaintenanceDue DateLast DoneCommentsInfluenza Vaccine (#1)05/11/2025 08/11/2019, 07/11/2011HPV/Jkupzg62, 12/11/2017Cervical Cancer Ozayripvp85/01/2028Pap Smear Goals GoalPatient Goal TypeAssociated ProblemsRecent ProgressPatient-Stated?Author Help patient manage antidepressant medication Care PlanPatient on antidepressant monitoring Riddhi Mcdonald MD Baseline PHQ-9 Care PlanBaseline PHQ-9Riddhi Lerma MD Procedures Procedure NamePriorityDate/TimeAssociated DiagnosisCommentsALL CBC WITH AUTO FLLACztkvij51/22/2025 9:21 AM EDT MLR HEMOGLOBIN J1XGhngpst41/22/2025 9:21 AM EDT RECURRENT VAGINITIS (HTRX)Tfrhanv7706/10/2025 10:04 AM EDT POCT URINALYSIS JLLNHOVFCtnzkal65/01/2025 9:14 AM EDT 21 weeks gestation of ([facility]) IGP,APTIMA HPV,AGE QXASRinakgg15/01/2025 9:06 AM EDT PAP MZMFZZgefwjr10/01/2025 12:00 AM EDTUS OB 14+ WEEKS ANATOMY SCAN06/01/2025 5:47 PM EDT POCT URINALYSIS KKPLIMZDRifwvhr51/04/2025 9:32 AM EDT Second trimester ([facility]) 17 weeks gestation of ([facility]) POCT URINALYSIS PRDHMJQRWnmpogk42/11/2025 9:22 AM EDT Second trimester ([facility]) THINPREP PAP AND HPV MRNA E6/E7 W/RFL HPV 16,18/74Ibbgjbq35/28/2023 4:13 PM EDT Well woman exam with routine gynecological exam from Last 3 Months or Most Recently Relevant to Health Maintenance Results * MLR HEMOGLOBIN A1C (07/01/2025 9:21 AM EDT)ComponentValueRef RangeTest Method Analysis TimePerformed AtPathologist SignatureGLYCOHEMOGLOBIN A1C4.84.5 - 6.2 %TBHComment: ADA RECOMMENDED LIMIT 4.0 - 6.0 ADA THERAPEUTIC TARGET < 7.0 ACTION SUGGESTED > 7.0 ESTIMATED AVERAGE WMAKWJI49aq/dLTBHSpecimen (Source)Anatomical Location / LateralityCollection Method / VolumeCollection TimeReceived Time07/01/2025 9:21 AM EDT1 9:38 AM EDT Narrative CLINISYNC - 07/01/2025 9:54 AM EDT Authorizing ProviderResult TypeResult StatusGeneric External Data Provider CLINISYNCFinal ResultPerforming OrganizationAddressCity/State/ZIP CodePhone Number [facility] * (ABNORMAL) ALL CBC WITH AUTO DIFF (07/01/2025 9:21 AM EDT)ComponentValueRef RangeTest MethodAnalysis TimePerformed AtPathologist SignatureTBH WBC11.4(H) 4.0 - 11.0 10 3/uLTBHTBH RBC3.26(L)4.20 - 5.40 10 6/uLTBHTBH HGB10.2(L)12.0 - 16.0 g/dLTBHTBH HCT29.7(L)36.0 - 48.0 %TBHTBH MCV91.181.0 - 99.0 fLTBHTBH MCH 31.326.7 - 34.0 pgTBHTBH MCHC34.329.9 - 35.2 g/dLTBHTBH RDW13.011.0 - 15.0 % TBHTBH LZU894391 - 450 10 3/uLTBHTBH MPV9.79.5 - 13.5 [...] 9:21 AM EDT1 9:38 AM EDT Narrative SUZANISYNC - 07/01/2025 9:55 AM EDT Authorizing ProviderResult TypeResult StatusGeneric External Data Provider CLINISYNCFinal ResultPerforming OrganizationAddressCity/State/ZIP CodePhone Number [facility] * RECURRENT VAGINITIS (HTRX) (06/10/2025 10:04 AM EDT)ComponentValueRef Range Test MethodAnalysis TimePerformed AtPathologist SignatureATOPOBIUM VAGINAE0 19.961 - 24.689 ppm06/11/2025 6:30 AM EDTHealthTrackRx at LabPortATOPOBIUM VAGINAENot Vfgnnrto23.961 - 24.689 ppm06/11/2025 6:30 AM EDTHealthTrackRx at LabPortBVAB 2,3 (BACTERIAL VAGINOSIS ASSOCIATED BACTERIA 2, 3); MOBILUNCUS SPP 019.961 - 24.689 ppm06/11/2025 6:30 AM EDTHealthTrackRx at [facility] HealthcareBVAB 2,3 (BACTERIAL VAGINOSIS ASSOCIATED BACTERIA 2, 3); MOBILUNCUS SPPNot Detected 19.961 - 24.689 ppm06/11/2025 6:30 AM EDTHealthTrackRx at LabSaint John'S Health SystemCANDIDA ALBICANS, PARAPSILOSIS, WWOJWOBPTP847.000 - 30.347 ppm06/11/2025 6:30 AM EDT [facility] HealthcareCANDIDA ALBICANS, PARAPSILOSIS, TROPICALISNot Detected 23.000 - 30.347 ppm06/11/2025 6:30 AM EDTHealthTrackRx at [facility] HealthcareCANDIDA KSKVVHXD227.000 - 31.618 ppm06/11/2025 6:30 AM EDTHealthTrackRx at [facility] YUAN GLABRATANot Eayzcygb72.000 - 31.618 ppm06/11/2025 6:30 AM EDT [facility] HealthcareCANDIDA SEPLML179.000 - 30.873 ppm06/11/2025 6:30 AM EDTHealthTrackRx at [facility] HealthcareCANDIDA KRUSEINot Ikwxurro51.000 - 30.873 ppm 06/11/2025 6:30 AM EDTHealthTrackRx at [facility]itan HealthcareCHLAMYDIA ZXWFDYJTPOW600.000 - 31.586 ppm06/11/2025 6:30 AM EDTHealthTrackRx at [facility] HealthcareCHLAMYDIA TRACHOMATIS Not Lxovzvmy65.000 - 31.586 ppm06/11/2025 6:30 AM EDTHealthTrackRx at [facility] GARDNERELLA KLGDDHWMD386.961 - 24.689 ppm06/11/2025 6:30 AM EDTHealthTrackRx at [facility]itan HealthcareGARDNERELLA VAGINALISNot Zinzsmzn13.961 - 24.689 ppm06/11/2025 6:30 AM EDTHealthTrackRx at [facility]itan HealthcareMEGASPHAERA (TYPES 1, 2)019.961 - 24.689 ppm 06/11/2025 6:30 AM EDTHealthTrackRx at Sam[facility]itan HealthcareMEGASPHAERA (TYPES 1, 2)Not Prqqamlz78.961 - 24.689 ppm06/11/2025 6:30 AM EDTHealthTrackRx at LabPort NEISSERIA ALOUGSKKVIL829.000 - 32.587 ppm06/11/2025 6:30 AM EDTHealthTrackRx at LabSaint John'S Health SystemNEISSERIA GONORRHOEAENot Lvgsqxaa64.000 - 32.587 ppm06/11/2025 6:30 AM EDTHealthTrackRx at LabSaint John'S Health SystemTRICHOMONAS BJVFTDNHC413.000 - 31.995 ppm 06/11/2025 6:30 AM EDTHealthTrackRx at LabPortTRICHOMONAS VAGINALISNot Qeofnujk06.000 - 31.995 ppm06/11/2025 6:30 AM EDTHealthTrackRx at LabPort MYCOPLASMA EXYMGLDJZX398.961 - 24.689 ppm06/11/2025 6:30 AM EDTHealthTrackRx at LabSaint John'S Health SystemMYCOPLASMA GENITALIUMNot Uwibfcko62.961 - 24.689 ppm06/11/2025 6:30 AM EDTHealthTrackRx at LabPortSpecimen (Source)Anatomical Location / LateralityCollection Method / VolumeCollection TimeReceived TimeTissue 06/10/2025 10:04 AM EDT1 1:43 AM EDT Narrative Authorizing ProviderResult TypeResult StatusNena Spicer NPLAB BLOOD ORDERABLESFinal ResultPerforming OrganizationAddressCity/State/ZIP CodePhone Number [facility] at LabSaint [facility] [address] [place] [address] * (ABNORMAL) POCT urinalysis dipstick manually resulted (06/10/2025 9:14 AM EDT) Only the most recent of3 resultswithin the time period is included. ComponentValueRef RangeTest MethodAnalysis TimePerformed AtPathologist Signature Color, UAYellowClarity, UAClearGlucose, UANegativeNegative - 2000(110) ++++ mg/dLBilirubin, UANegativeNegative - 4(70) +++ mg/dLKetones, UANegativeNegative - 160(16) ++++ mg/dLSpec Grav, UA1.0251 - 1.03Blood, UANegativeNegative - 50 Raul/mcLpH, UA6.05 - 9Protein, UATraceNegative - 2000(20) ++++ mg/dLUrobilinogen, UA2.00.2 - 12 mg/dLLeukocytes, UANegativeNegative - 500+++ Ramo/mcLNitrite, UA NegativeNegative - PositiveSpecimen (Source)Anatomical Location / Laterality Collection Method / VolumeCollection TimeReceived JycbQhvwb59/01/2025 9:14 AM EDT Narrative Authorizing ProviderResult TypeResult StatusNena Spicer [facility] TEST ENTER/EDIT ORDERABLESFinal Result * IGP,APTIMA [...] at: 01 =G ?[facility] [place] ?? [address] [place] ??[phone] ?? Flores Rodgers MD, IGP, APTIMA HPV, RFX 16/18,45Note.TBHComment: ?? TESTS ? RESULT ??FLAG ??UNITS ?REF RANGE ??LAB DIAGNOSIS: ?02 ?? NEGATIVE FOR INTRAEPITHELIAL LESION OR MALIGNANCY. Specimen adequacy: ?02 ?? Satisfactory for evaluation. No endocervical component is identified. Performed by: ? 02 ?? Jorge Whittington, Allied Health Teacher (ASCP) . ? 02 Note: ? [...] High,A-Abnormal,AA-Critical Abnormal Performed at: 02 WB ?[facility] [place] ?? [address] [place], [place] ??[phone] ?? Flores Rodgers MD, HPV APTIMANegativeNegativeTBHComment: This nucleic acid amplification test detects fourteen high- risk HPV types (16,18,31,33,35,39,45,51,52,56,58,59,66,68) without differentiation. Performed at: ??=G - [facility] [address] [place], [place] ??[id number] Field Hauler: Flores Rodgers MD, Phone: ??[phone] Performed at: ??WB - [facility] [address], [place] ??[id number] Field Hauler: Flores Rodgers MD, Phone: ??[phone] Specimen (Source)Anatomical Location / LateralityCollection Method / Volume Collection TimeReceived Time06/10/2025 9:06 AM EDT1 8:57 PM EDT Narrative CLINISYNC - 06/17/2025 3:09 PM EDT [facility] Authorizing ProviderResult TypeResult StatusGeneric External Data ProviderLAB BLOOD ORDERABLESFinal ResultPerforming OrganizationAddressCity/State/ZIP Code Phone Number CLINISYNC TBH * Pap Smear (06/10/2025 12:00 AM EDT)Specimen [...] PM EDT THIS EXAM WAS PERFORMED AT [facility] NAME: ??ATRA PERKINS : 1995 SEX: F Accession Number: [id number] ORDERING PHYSICIAN: ESTER PRATT REFERRING PHYSICIAN: GONZALEZ MORALES Coding Procedures ? 68351: Ultrasound, uterus, real time with image documentation, and maternal evaluation ? plus detailed anatomic examination, transabdominal approach;single or first gestation ? 59518: Ultrasound, uterus, real time with image documentation, [...] (oz) ? 11 oz EFW by: ?Hadlock ([facility]-FS-FL) Extended Tibia ??24.7 mm 18w 5d 17% Natalya Production Worker ? 5.8 mm CM ? 4.6 mm [...] Heart/Thorax: RVOT view. LVOT view. 3-vessel view. 3-vsoczc-amwowbm view. Situs. Aortic arch view. Bicaval view. [...] Marginal cord insertion noted. Recommendations Please see MFM documentation from today. The [...] - 06/01/2025 THIS EXAM WAS PERFORMED AT [facility] NAME: TARA PERKINS : 1995 SEX: F Accession Number: [id number] ORDERING PHYSICIAN: ESTER PRATT REFERRING PHYSICIAN: GONZALEZ MORALES Coding Procedures 91933: Ultrasound, uterus, real time with image documentation, and maternal evaluation plus detailed anatomic examination, transabdominalapproach;single or first gestation 68063: Ultrasound, uterus, real time with imagedocumentation, transvaginal [...] ft. Weight 108 kg, 239 lb. Initial ynasnl265 kg, 239 lb. BMI 46.68 kg/m???. Initial [...] EFW (oz) 11 oz EFW by: Hadlock ([facility]-BU-KB-FL) Extended Tibia 24.7 mm 18w 5d 17% Natalya Production Worker 5.8 mm CM 4.6 mm 37% Nicolaides [...] Heart/Thorax: RVOT view. LVOT view. 3-vessel view. 5-dzbbgn-atggkhi view.Situs. Aortic arch view. Bicaval view. Ductal [...] Marginal cord insertion noted. Recommendations Please see [facility] documentation from today. The patient is scheduled in four to six week(s) to complete anatomicsurvey. Subsequent follow up or other follow up as clinically determined byprimary OB provider unless otherwise specified by [facility]. Results forwarded to ordering provider so they can follow up with thepatient as necessary. The copy-to physician of this order is GONZALEZ Jenkins The ordering physician of this order is ESTER Lopez Authorizing ProviderResult TypeResult StatusCoremalena GARCIA OB US PROCEDURES Final Result * THINPREP PAP AND HPV MRNA E6/E7 W/RFL HPV 16,18/45 (06/07/2023 4:13 PM EDT) Narrative Authorizing ProviderResult TypeResult StatusAmy [facility] BLOOD ORDERABLES Final ResultPerforming OrganizationAddressCity/State/ZIP CodePhone Number EXTERNAL LAB from Last 3 Months or Most Recently Relevant to Health Maintenance Additional Health Concerns Active ProblemsNoted DateDiagnosed DatePatient on antidepressant monitoring plan 4Baseline PHQ-9002/01/2024 Insurance Care Teams Team MemberRelationshipSpecialtyStart DateEnd Date Riddhi Plata MD [address] [place] [address] PCP - GeneralFamily Medicine01/16/23
[2025-07-05 20:07] VITALS: BP 119/64; PULSE 77
[2025-07-05 20:21] LABS: Glucose Urine UA NEGATIVE (NEGATIVE)
== END 2025-07-05 22:00 | disposition home or self-care (01) ==
PROVIDERS: Midwife; Admitting Provider Obstetrics & Gynecology; PCP Family Medicine; Visit Provider Obstetrics & Gynecology
DX: O99.891 Other specified diseases and conditions complicating pregnancy (principal); R10.9 Unspecified abdominal pain; Z91.81 History of falling; Z3A.25 25 weeks gestation of pregnancy
CPT/HCPCS: 59025; 76815; 81003; 84112; G0378; G0379

== ENCOUNTER 2025-07-08 09:21 | Outpatient (OUT) | payer OTHER, SELFPAY ==
--- OUTSIDE RECORDS SUMMARY | 2025-06-24 13:40 | XMS_ITS | Encounter Summary ---
Author Organization [facility] Address [address] [place] [address] Care Team Providers Care Quartz Mounter Name Role Phone Riddhi Plata MD Primary Care Provider [phone] Reason for Visit * ReasonCommentsRoutine Visit Encounter Details DateTypeDepartmentCare Team (Latest Contact Info)Wlnawvojpxu32/15/2025 1:40 PM EDTRoutine [facility] [address] [address] Winter English PA [address] [place] [address] Gallstones and inflammation of gallbladder without obstruction (Primary Dx); Second trimester ([facility]); 23 weeks gestation of ([facility]); History of diet controlled gestational diabetes mellitus (GDM); Preeclampsia in period ([facility]); History of pulmonary embolism; Primary hypertension; Diabetes mellitus screening Social History Tobacco UseTypesPacks/DayYears UsedDateSmoking Tobacco: NeverSmokeless Tobacco: NeverAlcohol UseStandard Drinks/WeekCommentsNever0 (1 standard drink = 0.6 oz pure alcohol)Caffeine intake: 1-2 cups per day coffeeEstimated Date of RmodelzwBlzeeemnAab18/06/2026ased on last menstrual period of 01/09/2025Sex and Gender InformationValueDate RecordedSex Assigned at BirthNot on fileLegal Sex Purzve0011/22/2022 9:44 PM EDTGender IdentityNot on fileSexual OrientationNot on filedocumented as of this encounter Last Filed Vital Signs Vital SignReadingTime TakenCommentsBlood Uyjwxkfz889/7006/24/2025 1:57 PM EDT Pulse--Temperature--Respiratory Rate--Oxygen Saturation--Inhaled Oxygen Concentration--Iiqops935 kg (234 lb)06/24/2025 1:57 PM EDTHeight--Body Mass [...] body mass index of 60.0-69.9 in adult ([facility]) 01/26/2023 Polycystic ovarian disease 01/26/2023 Primary hypertension 01/26/2023 Adjustment disorder with anxiety 11/30/2021 Amnesia 05/17/2023 Anxiety 07/07/2019 Anemia 06/26/2019 Depression 06/13/2019 Disorder of endocrine system 05/17/2023 Family history of diabetes during 11/28/2021 Family history of thrombosis 03/17/2022 Frequent headaches 05/17/2023 Gastroesophageal reflux disease 12/15/2019 Gestational diabetes mellitus (GDM) ([facility]) 12/09/2018 History of diet controlled gestational diabetes mellitus (GDM) 11/30/2021 Iron deficiency anemia 12/29/2019 Irregular periods 05/17/2023 Menorrhagia with regular cycle 05/17/2023 Asthma ([facility]) 12/09/2018 Class 3 severe obesity due to excess calories with serious comorbidity and body mass index (BMI) of50.0 to 59.9 in adult ([facility]) 05/17/2023 Nausea and vomiting 05/17/2023 Pneumonia due to infectious organism 07/30/2022 Preeclampsia in period ([facility]) 11/26/2021 Acute pulmonary embolism ([facility]) 05/17/2023 Single subsegmental pulmonary embolism without acute cor pulmonale ([facility]) 05/17/2023 Seasonal allergic rhinitis due to pollen 12/15/2019 Thyroid nodule 05/17/2023 Urinary tract infection without hematuria 05/17/2023 LUCIANO on CPAP 02/22/2023 History of pulmonary embolism 03/17/2022 H/O gastric bypass 04/20/2025 Resolved Ambulatory Problems Diagnosis Date Noted No Resolved Ambulatory Problems Past Medical History: Diagnosis Date Acute memory impairment COVID 02/2020 Encounter for insertion of Mirena IUD GERD without esophagitis Gestational diabetes ([facility]) H/O blood clots H/O: hypertension High blood pressure History of being hospitalized Hormone imbalance Intrauterine device surveillance Irregular bleeding Morbid obesity with BMI of 50.0-59.9, adult ([facility]) Nausea Nausea with vomiting Pneumonia 07/30/2022 hypertension ([facility]) Pulmonary embolism ([facility]) 11/2021 Well woman exam HISTORY PAST MEDICAL [...] nursing note reviewed. Exam conducted with a gas appliance adjuster present. Vitals: Estimated body mass index is 43.65 kg/m?? as calculated from the following: Height as of 10/10/24: 5' 1 . Weight as of 06/10/25: 231 lb. BP: Patient's last menstrual period was 01/09/2025. ASSESSMENT & PLAN ICD-10-CM 1. Second trimester ([facility]) Z34.92 POCT urinalysis dipstick manually resulted 2. 23 weeks gestation of ([facility]) Z3A.23 3. History of diet controlled gestational diabetes mellitus (GDM) Z86.32 4. Preeclampsia in period ([facility]) O14.95 5. History of pulmonary embolism Z86.711 [...] given A1C/CBC order to have scheduled at [facility]. Pt can't not drink the glucose drink due to having gastric bypass surgery. Pt was advised to make sure to have her blood drawn. PVU. Pt states she was dx w/gallstones at the [facility] on 06/17/2025. Pt states she ended up [...] Frequent headaches GERD without esophagitis Gestational diabetes ([facility]) H/O blood clots H/O gastric bypass H/O: hypertension High blood pressure History of being hospitalized Pt was re-admitted to [facility] for HTN (11/2021) , Pt had a baby (11/21/21) Hormone imbalance Intrauterine device surveillance Irregular bleeding Morbid obesity with BMI of 50.0-59.9, adult ([facility]) Nausea Nausea with vomiting Pneumonia 07/30/2022 hypertension ([facility]) Pulmonary embolism ([facility]) 11/2021 Rt. ; [facility] post Well woman exam [3] Family [...] Plan of Treatment DateTypeDepartmentCare Team (Latest Contact Info)Insipeytcrx17/20/2025 9:00 AM ESTRoutine [facility] [address] [place] [address] Bin Morales DO [address] [place] [address] NameTypePriorityAssociated DiagnosesOrder ScheduleCBC and differentialLabRoutine Diabetes mellitus [...] cholecystitis, without mention of obstruction Second trimester ([facility]) state, incidental 23 weeks gestation of ([facility]) History of diet controlled gestational diabetes mellitus (GDM) Preeclampsia in period ([facility]) History of pulmonary embolism Personal history of venous thrombosis and embolism Primary hypertension Unspecified essential hypertension Diabetes mellitus screening Screening for diabetes mellitus documented in this encounter Additional Health Concerns Active ProblemsNoted DateDiagnosed DatePatient on antidepressant monitoring plan 4Baseline PHQ-904documented as of this encounter Care Teams Team MemberRelationshipSpecialtyStart DateEnd Date Riddhi Plata MD [address] [place] [address] PCP - GeneralFamily Medicine01/16/23documented as of this encounter
--- OUTSIDE RECORDS SUMMARY | 2025-07-08 08:30 | XMS_ITS | Encounter Summary ---
Author Organization [facility] Address [address] [place] [address] Care Team Providers Care Personal Injury Law Specialist Name Role Phone Riddhi Plata MD Primary Care Provider [phone] Reason for Visit * ReasonCommentsRoutine Visit Encounter Details DateTypeDepartmentCare Team (Latest Contact Info)Swbgmyrngtn43/29/2025 8:30 AM EDTRoutine [facility] OBGY[facility] [address] [place] [place] [address] Winter English PA [address] [place], [place] [id number] Second trimester ([facility] 25 weeks gestation of ([facility]); Pruritus Social History Tobacco UseTypesPacks/DayYears UsedDateSmoking Tobacco: NeverSmokeless Tobacco: NeverAlcohol UseStandard Drinks/WeekCommentsNever0 (1 standard drink = 0.6 oz pure alcohol)Caffeine intake: 1-2 cups per day coffeeEstimated Date of EqjlzieyLbsivilqQxb32/06/2026ased on last menstrual period of 01/09/2025Sex and Gender InformationValueDate RecordedSex Assigned at BirthNot on fileLegal Sex Kxjjtc7811/22/2022 9:44 PM EDTGender IdentityNot on fileSexual OrientationNot on filedocumented as of this encounter Last Filed Vital Signs Vital SignReadingTime TakenCommentsBlood Xafbpwud186/6807/08/2025 8:38 AM EDT Pulse--Temperature--Respiratory Rate--Oxygen Saturation--Inhaled Oxygen Concentration--Vvubsj949 kg (237 lb 6.4 oz)07/08/2025 8:38 AM EDTHeight--Body Mass Index44.8610/10/2024 3:32 PM ESTdocumented in this encounter Plan of Treatment DateTypeDepartmentCare Team (Latest Contact Info)Hznvokcyfve28/20/2025 9:00 AM ESTRoutine [facility] [address] [place] [id number] Bin Morales DO [address] [place] [address] NameTypePriorityAssociated DiagnosesOrder ScheduleHepatitis C antibodyLabRoutine Pruritus Expected: 07/08/2025 (Approximate), Expires: 07/08/2026Hepatic function panelLab Routine Pruritus Expected: 07/08/2025 (Approximate), Expires: 07/08/2026TSHLabRoutine Pruritus Expected: 07/08/2025 (Approximate), Expires: 07/08/2026ile acids, totalLab Routine Pruritus Expected: 07/08/2025 (Approximate), Expires: 07/08/2026BC and differentialLab Routine Pruritus Expected: 07/08/2025 (Approximate), Expires: 07/08/2026documented as of this encounter Goals GoalPatient Goal TypeAssociated ProblemsRecent ProgressPatient-Stated?Author Help patient manage antidepressant medication Care PlanPatient on antidepressant monitoring Riddhi Mcdonald MD Baseline PHQ-9 Care PlanBaseline PHQ-9Riddhi Lerma, MDdocumented as of this encounter Procedures Procedure NamePriorityDate/TimeAssociated DiagnosisCommentsPOCT URINALYSIS GHSHLVJFRwayows02/29/2025 8:48 AM EDT 25 weeks gestation of ([facility]) documented in this encounter Results * (ABNORMAL) POCT urinalysis dipstick manually resulted (07/08/2025 8:48 AM EDT) ComponentValueRef RangeTest MethodAnalysis TimePerformed AtPathologist SignatureColor, UAYellowClarity, UAClearGlucose, UANegativeNegative - 1999(110) ++++ mg/dLBilirubin, UANegativeNegative - 4(70) +++ mg/dLKetones, UA NegativeNegative - 160(16) ++++ mg/dLSpec Grav, UA1.0301 - 1.03Blood, UA NegativeNegative - 50 Raul/mcLpH, UA6.05 - 9Protein, UATraceNegative - 2000(20) ++++ mg/dLUrobilinogen, UA0.20.2 - 12 mg/dLLeukocytes, UATraceNegative - 500+++ Ramo/mcLNitrite, UANegativeNegative - PositiveSpecimen (Source) Anatomical Location / LateralityCollection Method / VolumeCollection Time Received KgcvBmmyz87/29/2025 8:48 AM EDT Narrative Authorizing ProviderResult TypeResult StatusWinter English [facility] TEST ENTER/EDIT ORDERABLESFinal Result documented in this encounter Visit Diagnoses Diagnosis Second trimester ([facility]) state, incidental 25 weeks gestation of ([facility]) Pruritus Unspecified pruritic disorder documented in this encounter Additional Health Concerns Active ProblemsNoted DateDiagnosed DatePatient on antidepressant monitoring plan 4Baseline PHQ-904documented as of this encounter Care Teams Team MemberRelationshipSpecialtyStart DateEnd Date Riddhi Plata MD [address] [place] [address] PCP - GeneralFamily Medicine01/16/23documented as of this encounter
--- OUTSIDE RECORDS SUMMARY | 2025-07-08 09:28 | XMS_ITS | Encounter Summary ---
Author Organization [employer] [facility] tem Address [id number] [address] [place] [address] Care Team Providers Care Military Education Coordinator Name Role Phone Riddhi Plata MD Primary Care Provider [phone] Encounter Details DateTypeDepartmentCare Team (Latest Contact Info)Cbhybkwpnuj60/24/2025Telephone [facility] [address] [place] [address] Ken Manzo MD [address] [place] [address] Social History Tobacco UseTypesPacks/DayYears UsedDateSmoking Tobacco: NeverSmokeless [...] care, and heating?Not hard at all06/23/2025PHQ-2AnswerDate RecordedTotal Pnjbp964 PRAPARE - TransportationAnswerDate RecordedIn the past 12 [...] for you to work or study?No06/23/2025 EmploymentAnswerDate BhawngmhJcflvjnkgzDfptxxu27/06/2019Hunger ScreeningAnswer Date RecordedWithin the past 12 months we worried whether our food would run out before we got money to buy more.Never True06/23/2025Within the past 12 months the food we bought just didn't last and we didn't have money to get more.Never True06/23/2025Purpose - LifeAnswerDate RecordedPurpose and direction in life Kdkzqnm37/27/2021Estimated Date of AxyfqfuuEbunjascRjq64/06/2026Based on last menstrual period of 01/09/2025Sex and Gender InformationValueDate RecordedSex Assigned at XtrcaAcmidr43/20/2022 9:31 PM ESTLegal VfwLoeidg60/06/2015 11:49 AM EDTGender HelmuuvcTtrdtc64/20/2022 9:31 PM ESTSexual OrientationStraight 07/30/2022 9:31 PM ESTdocumented as of this encounter Miscellaneous Notes * Telephone Encounter - Nilsa Jessica - 07/03/2025 9:38 AM EDT LMOM for pt to call the office and make an appt documented in this encounter Plan of Treatment DateTypeDepartmentCare Team (Latest Contact Info)Wvbnwavyzzt02/30/2025 9:45 AM EDTAppointment [facility] [address] [place] [address] 07/09/2025 11:30 AM EDTOffice Visit Maternal- Medicine at [facility] [address] [place] [address] Sana Lima MD [address] [place] [address] documented as of this encounter Goals GoalPatient [...]
--- OUTSIDE RECORDS SUMMARY | 2025-07-08 09:29 | XMS_ITS | Encounter Summary ---
Author Organization [facility] tem Address [id number] [address] [place] [address] Care Team Providers Care Silver Lap Machine Tender Name Role Phone Riddhi Plata MD Primary Care Provider [phone] Encounter Details DateTypeDepartmentCare Team (Latest Contact Info)Ebshtawnmcp11/16/2025Orders Only Maternal- Medicine at [facility] [address] [facility] [place] [phone] Winter Gibbons LPN History of gestational diabetes in prior , currently in second trimester ([facility]); History of prediabetes; History of gestational diabetes in prior , currently Social History Tobacco UseTypesPacks/DayYears UsedDateSmoking Tobacco: NeverSmokeless Tobacco: NeverAlcohol UseStandard Drinks/WeekCommentsNot Currently0 (1 standard drink = 0.6 oz pure alcohol)Applause UtilitiesAnswerDate RecordedIn the past 12 months has the [employer], gas, oil, or water [employer] threatened to shut off services in your [...] care, and heating?Not hard at all06/23/2025PHQ-2AnswerDate RecordedTotal Xzbbn070 PRAPARE - TransportationAnswerDate RecordedIn the past 12 [...] of a household?No06/23/2025hildcareAnswerDate RecordedDo problems getting child support investigator make it difficult for you to work or study?No06/23/2025 EmploymentAnswerDate QlsjugweFfexgjvigxZoilknu65/06/2019Hunger ScreeningAnswer Date RecordedWithin the past 12 months we worried whether our food would run out before we got money to buy more.Never True06/23/2025Within the past 12 months the food we bought just didn't last and we didn't have money to get more.Never True06/23/2025Purpose - LifeAnswerDate RecordedPurpose and direction in life Qjvdnwd25/27/2021Estimated Date of MhmfkhfkWqqilzgbSae50/06/2026Based on last menstrual period of 01/09/2025Sex and Gender InformationValueDate RecordedSex Assigned at EkldeMcquvl56/20/2022 9:31 PM ESTLegal ChbPamlta77/06/2015 11:49 AM EDTGender RnakjhazHyfhve28/20/2022 9:31 PM ESTSexual OrientationStraight 07/30/2022 9:31 PM ESTdocumented as of this encounter Plan of Treatment DateTypeDepartmentCare Team (Latest Contact Info)Rpslwojnekw76/30/2025 9:45 AM EDTAppointment [facility] [address] [place] [address] 07/09/2025 11:30 AM EDTOffice Visit Maternal- Medicine at [facility] [address] [place] [address] Sana Lima MD [address] [place] [address] documented as of this encounter Goals GoalPatient Goal TypeAssociated ProblemsRecent ProgressPatient-Stated?Author safe discharge to home Kate aMlave RN Note: Evaluation of progress towards goal: [...]
--- OUTSIDE RECORDS SUMMARY | 2025-07-08 09:29 | XMS_ITS | Clinical Summary ---
Author Organization Ziptr tem Address [id number] [address] [place] [address] Care Team Providers Care Curbing Stonecutter Name Role Phone Riddhi Plata MD Primary Care Provider [phone] Allergies Active AllergyReactionsCriticalityNoted DateCommentsSumatriptanAnaphylaxis,Other (See Comments)High11/28/2018 IMITREX [...] hours as needed for pain Indications: pain.Active cholecalciferol 1,000 units tablet Indications:Vitamin D deficiencyTake 1 tablet (1,000 Units total) by mouth in the morning for 30 days. 30 tablet Expired Active Problems ProblemNoted DateDiagnosed DateH/O gastric pasfyu9012/30/2024Postsurgical eywrgxqmknemh84/22/2025Malnutrition following gastrointestinal izoqgub2312/30/2024 Class 3 severe obesity with body mass index (BMI) of 60.0 to 69.9 in adult 04/23/2024OSA on CPAP02/22/2023History of pulmonary /08/2022Family history of /08/4304Cqtcja65/01/2019Estimated Date of YgnluhgpOztxneqkSyc05/06/2026ased on last menstrual period of 01/09/2025 Resolved Problems ProblemNoted DateDiagnosed DateResolved DatePneumonia due to infectious organism, unspecified laterality, unspecified part of lung Gestational hzujchcg324Preeclampsia, kximmb53 Encounters DateTypeDepartmentCare FymiRpxyswhskvo23/24/2025Telephone [facility]-B[facility]ric [address] [place] [phone] Ken Manzo MD 06/25/2025Orders Only Maternal- Medicine at [facility] [address] [place] [address] Winter Gibbons LPN History of gestational diabetes in prior , currently in second trimester (PrimaryDx); History of prediabetes; History of gestational diabetes in prior , currently dxhehund15/14/2025 4:05 AM EDT - 06/23/2025 9:28 AM EDTEmergency [facility] [address] [place] [phone] Spencer Melendez DO Kovach, Corie L, MD Abdominal pain of multiple sites (Primary Dx) Discharge Disposition: Home06/23/20252596Rfkkwm97/13/2025Telephone Maternal- Medicine at [facility] [address] [place] [address] Winter Gibbons LPN 06/17/2025 10:39 AM EDT - 06/17/2025 12:10 PM EDTEmergency [facility] - Emergency [address] [place] [address] Jaswinder Melvin MD Symptomatic cholelithiasis (Primary Dx) Discharge Disposition: Home06/17/20253489Hvdfki95/08/2025Telephone Maternal- Medicine at [place] [address] [place] [address] Winter Gibbons LPN 06/16/2025Refill [facility] General [facility]-Bariatric [address] [place] [address] Moriah Lira PA-C History of Arlene-en-Y gastric bypass; Postsurgical malabsorption; Malnutrition following gastrointestinal surgery; B12 dbzxbyqfgh34/29/2025Orders Only Maternal- Medicine at [place] [address] [place] [phone] Ester Marie MD History of Arlene-en-Y gastric bypass; Postsurgical malabsorption; Malnutrition following gastrointestinal surgery; Folate deficiency; Iron xhxcluntsz37/22/2025Results Follow-Up Maternal- Medicine at [place] [address] [place] [phone] Ester Marie MD B-type natriuretic peptide, CBC without diff, Comprehensive metabolic panel, Additional followed-upresults: 11:00 AM EDTOffice Visit Maternal- Medicine at [place] [address] [place] [phone] Ester Marie MD History of maternal pulmonary [...] Depression affecting ; Anxiety disorder affecting , ecblxyquyh67/19/2025 9:30 AM EDT - 05/29/2025 11:[address] [facility] [address] [place] [address] Screening, , for anatomic survey Discharge Disposition: Home05/29/2025Orders Only Maternal- Medicine at [facility] [address] [place] [phone] Winter Gibbons LPN 20 weeks gestation of [...] Depression affecting ; Anxiety disorder affecting , kbzxyzqauj87/19/6872Vaqswy43/18/2025Orders Only Maternal- Medicine at [facility] [address] [place] [address] Ref Prov, Not In System 05/28/2025bstract Maternal- Medicine at [facility] [address] [place] [address] Ester Marie MD 05/26/2025Refill [facility]ric [address] [place] [address] Moriah Lira PA-C History of Arlene-en-Y gastric bypass; Postsurgical malabsorption; Malnutrition following gastrointestinal surgery; B12 ldprlopwlv35/11/2025[facility] [address] [phone] Moriah Lira PA-C History of Arlene-en-Y gastric bypass; Postsurgical malabsorption; Malnutrition following gastrointestinal surgery; B12 swfdrtlkoi91/17/2025[facility] [address] [place] [phone] Moriah Lira PA-C History of Arlene-en-Y gastric [...] (1 standard drink = 0.6 oz pure alcohol)Count includes the [facility] UtilitiesAnswerDate RecordedIn the past 12 months has [...] care, and heating?Not hard at all06/23/2025PHQ-2AnswerDate RecordedTotal Jvmmv805RAPARE - TransportationAnswerDate RecordedIn the past 12 months, [...] for you to work or study?No06/23/2025 EmploymentAnswerDate LuaoqjelGnhdwecpkhEhjauah18/06/2019Hunger ScreeningAnswer Date RecordedWithin the past 12 months we worried whether our food would run out before we got money to buy more.Never True06/23/2025Within the past 12 months the food we bought just didn't last and we didn't have money to get more.Never True06/23/2025Purpose - LifeAnswerDate RecordedPurpose and direction in life Wmnlalo24/27/2021Estimated Date of TnhnsdjtGwodiueyCcq38/06/2026Based on last menstrual period of 5/2/2025Sex and Gender InformationValueDate RecordedSex Assigned at AdnylPxzdmy04/20/2022 9:31 PM ESTLegal OovWvgenq18/06/2015 11:49 AM EDTGender CngpgkvvDyxqrq81/20/2022 9:31 PM ESTSexual OrientationStraight 07/30/2022 9:31 PM EST Last Filed Vital Signs Vital SignReadingTime TakenCommentsBlood Snwsdyko89/561 7:07 AM EDT Mnelw659206/23/2025 7:07 AM LSNRonfvjajqby37.8 ??C (98.2 ??F)06/23/2025 7:07 AM EDTRespiratory Tlie6349 7:07 AM EDTOxygen Fdobsonfyy74%06/23/2025 5:39 AM EDTInhaled Oxygen Concentration--Qyfnlj995.3 kg (230 lb)06/23/2025 4:11 AM ZRSYyriqe423.9 cm (5' 1 )06/23/2025 4:11 AM EDTBody Mass Index43.4606/23/2025 4:11 AM EDT Plan of Treatment DateTypeDepartmentCare Team (Latest Contact Info)Hbhrqvzbypl94/30/2025 [address] [facility] Imaging [address] [place] [phone] 07/09/2025 11:30 AM EDTOffice Visit Maternal- Medicine at [facility] [address] [place] [phone] Sana Lima MD [address] [place] [address] Health MaintenanceDue DateLast DoneCommentsDTaP,Tdap and Td Vaccines (7 - Td or Tdap), 01/14/1999, 10/23/1996, Additional history exists Depression Zixicszao55/dult BMI Follow Up Plan05/01/2025 05/01/2024Influenza Tyzfgus03/10/2018, 07/11/2011dult BMI Screening Tobacco Lwdxlnhih39Pap Smear06/10/2028 06/10/2025 Goals GoalPatient Goal TypeAssociated ProblemsRecent ProgressPatient-Stated?Author safe discharge to home Kate Malave RN Note: Evaluation of progress towards goal: safe transition from hospital to home with family support. Medical Devices Not on file Procedures Procedure NamePriorityDate/TimeAssociated DiagnosisCommentsCT CTA CHESTSTAT 06/23/2025 8:40 AM EDT CZOXWCNWDVAMCL67/14/2025 5:20 AM EDT DWVWEGEZCV83/14/2025 4:21 AM EDT COMPREHENSIVE METABOLIC CUNPDNWOC73/14/2025 4:21 AM EDT CBC WITH AUTO SGEZKRLCNMNBOUMM60/14/2025 4:21 AM EDT US ABDOMEN YOQUJCQD65/08/2025 11:31 AM EDT ER EXTRA BJPUFKAYR89/08/2025 11:24 AM EDT POCT NURSING URINE MACROSCOPIC HPZplszdr85/08/2025 11:09 AM EDT EXTRA TUBES BLUE NZUVotvvlu23/08/2025 11:04 AM EDT EXTRA IAZPPUmcesod14/08/2025 11:04 AM EDT COMPREHENSIVE METABOLIC WVLMDJWUT40/08/2025 11:04 AM EDT VCDSOHJRCC88/08/2025 11:04 AM EDT CBC WITH AUTO OLVAJNSIDLLESKKN52/08/2025 11:04 AM EDT ANTI THROMBIN 3 WWQXSPpioocw34/19/2025 1:48 PM EDT 20 weeks gestation of History of maternal pulmonary embolus PROTEIN C ZHIITCMBChbtsam43/19/2025 1:48 PM EDT 20 weeks gestation of History of maternal pulmonary embolus PROTEIN S YVMRWZSMAcmvowr54/19/2025 1:48 PM EDT 20 weeks gestation of History of maternal pulmonary embolus IRON AND XWVMWqnnamf83/19/2025 1:48 PM EDT 20 weeks gestation of Bariatric surgery status complicating , second trimester QTXAGWVIMdmuzid99/19/2025 1:48 PM EDT 20 weeks gestation of Bariatric surgery status complicating , second trimester LTDBWQCdunwqi04/19/2025 1:48 PM EDT 20 weeks gestation of Bariatric surgery status complicating , second trimester ZINC, SSJZTBsczblx43/19/2025 1:48 PM EDT 20 weeks gestation of Bariatric surgery status complicating , second trimester VITAMIN D 25 IGGFRFDKwegnfq30/19/2025 1:48 PM EDT 20 weeks gestation of Bariatric surgery status complicating , second trimester VITAMIN C45Jhtzpvv18/19/2025 1:48 PM EDT 20 weeks gestation of Bariatric surgery status complicating , second trimester THIAMIN (VITAMIN B1), ZJWkspvmx58/19/2025 1:48 PM EDT 20 weeks gestation of Bariatric surgery status complicating , second trimester TCDKxkmiuz77/19/2025 1:48 PM EDT 20 weeks gestation of Chronic hypertension affecting URIC UYHLFnsnmup12/19/2025 1:48 PM EDT 20 weeks gestation of Chronic hypertension affecting PROTEIN CREAT RBWOFGbrwktv66/19/2025 1:48 PM EDT 20 weeks gestation of Chronic hypertension affecting COMPREHENSIVE METABOLIC LUKFEYluocrt87/19/2025 1:48 PM EDT 20 weeks gestation of Chronic hypertension affecting CBC (NO DIFF)Xkfvrsv2405/29/2025 1:48 PM EDT 20 weeks gestation of Chronic hypertension affecting B-TYPE NATRIURETIC QKWTHIRRswiqvr70/19/2025 1:48 PM EDT 20 weeks gestation of Chronic hypertension affecting US MFM COMPREHENSIVE ANATOMIC AGEGYIVgihuzs28/19/2025 12:07 PM EDT Screening, , for anatomic survey US PREG LMTD 1 OR MORE MVUNJJnjpfdb82/18/2025 11:41 AM EDTUNLISTED LAB TEST Oqipojh2605/28/2025 11:15 AM EDTfrom Last 3 Months Results [...] on 06/23/2025 8:49 AM Authorizing ProviderResult TypeResult StatusCojyoti Dunlap MDTrini CT ORDERABLES Final Result * Urinalysis (06/23/2025 5:20 AM EDT)ComponentValueRef RangeTest MethodAnalysis TimePerformed AtPathologist RdqoavttgARPZFTlrnsyJkqckr48/14/2025 6:36 AM EDT [facility]USMIXZDTFAOTZUXOKCZTvzdfSzice75/14/2025 6:36 AM EDT [facility] TOLEDOPECIFIC GRAVITY1.0201.003 - 1.035 06/23/2025 6:36 AM EDFOSTORIA CITY HOSPITALNITRITENegative Zzwnqqkc10/14/2025 6:36 AM [facility]PH,URINE6.0 5.0 - 8.510 6:36 AM [facility]OSPITALLEUKOCYTE CEVIMCRPMnzcsameSiioyflp87/14/2025 6:36 AM [facility]ITALPROTEINNegativeNegative06/23/2025 6:36 AM EDFOSTORIA CITY HOSPITALKETONES (URINE)EdaoxdioRqvsfaxz79/14/2025 6:36 AM EDT [facility]ITALUROBILINOGEN1.0 eu/dL0.2 eu/dL, 1.0 eu/dL 06/23/2025 6:36 AM EDFOSTORIA CITY HOSPITALBILIRUBIN (URINE) ClrnglvsObodyesp79/14/2025 6:36 AM [facility] BLOOD/SJHPkaeobkcSeqsleoz93/14/2025 6:36 AM [facility]OSPITALGLUCOSE (URINE)NegativeNegative, 250 mg/dL06/23/2025 6:36 AM EDT [facility] TOLEDOpecimen (Source)Anatomical Location / LateralityCollection Method / VolumeCollection TimeReceived TimeUrineUrine specimen collection, clean catch / Lfzyyha2606/23/2025 5:20 AM EDT1 6:32 AM EDT Narrative Authorizing ProviderResult TypeResult StatusCoribridget Dunlap MDURINE ORDERABLES Final ResultPerforming OrganizationAddressCity/State/ZIP CodePhone Number [facility] [address] [place] [address], * (ABNORMAL) CBC auto differential (06/23/2025 4:21 AM EDT) Only the most recent of2 resultswithin the time period is included. ComponentValueRef RangeTest MethodAnalysis TimePerformed AtPathologist Signature WBC9.74 - 11 x10E9/L1 4:49 AM EDTPAULTMAN HOSPITALRBC Count3.38(L)3.8 - 5.2 X10E12/L1 4:49 AM EDTPAULTMAN HOSPITALHemoglobin10.6(L)11.7 - 15.5 g/dL06/23/2025 4:49 AM EDTPAULTMAN HOSPITALHematocrit29.9(L)35 - 47 %06/23/2025 4:49 AM EDTPMIAMI VALLEY HOSPITALV8880 - 100 fL06/23/2025 4:49 AM EDTPMIAMI VALLEY HOSPITALH31.327 - 34 pg06/23/2025 4:49 AM EDTPAULTMAN HOSPITALMCHC35.332 - 36 g/dL06/23/2025 4:49 AM EDTPAULTMAN HOSPITALRDW13.011.5 - 15 %06/23/2025 4:49 AM EDTPAULTMAN HOSPITALPlatelet Icuxz889830 - 450 X10E9/L1 4:49 AM EDT [facility]OS[facility]ITALMPV7.87 - 12 fL06/23/2025 4:49 AM EDT [facility]OS[facility]ITALNeutrophils %69.6%06/23/2025 4:49 AM EDT [facility] HOSPITALLymphocytes %24.9%06/23/2025 4:49 AM EDT [facility]ITALMonocytes %4.0%06/23/2025 4:49 AM EDT [facility]OS[facility]ITALEosinophils %1.1%06/23/2025 4:49 AM EDT [facility]OS[facility]ITALBasophils %0.4%06/23/2025 4:49 AM EDT [facility] HOSPITALNeutrophils Absolute (A)6.8(H)1.5 - 6.6 10*3/uL06/23/2025 4:49 AM EDTPAULTMAN HOSPITALLymphocytes Absolute2.41.0 - 3.5 10*3/uL06/23/2025 4:49 AM EDFOSTORIA CITY HOSPITALMonocytes Absolute0.40.0 - 0.9 10*3/uL06/23/2025 4:49 AM EDFOSTORIA CITY HOSPITALEosinophils Absolute0.10.0 - 0.4 10*3/uL06/23/2025 4:49 AM [facility]OSPITALBasophils Absolute0.00.0 - 0.2 10*3/uL 06/23/2025 4:49 AM [facility]OSPITALDifferential Type AUTOMATED EQUJTFKSCTSY69/14/2025 4:49 AM [facility] Specimen (Source)Anatomical Location / LateralityCollection Method / Volume Collection TimeReceived TimeBloodVenous blood / UnknownVenipuncture / Unknown 06/23/2025 4:21 AM EDT1 4:44 AM EDT Narrative Authorizing ProviderResult TypeResult StatusJesse A Park DOLAB BLOOD ORDERABLES Final ResultPerforming OrganizationAddressCity/State/ZIP CodePhone Number [address] [place] [address], [place] * Lipase (06/23/2025 4:21 AM EDT) Only the most recent of2 resultswithin the time period is included. ComponentValueRef RangeTest MethodAnalysis TimePerformed AtPathologist Signature GSYGTO2278 - 40 U/L1 5:02 AM [facility] Specimen (Source)Anatomical Location / LateralityCollection Method / Volume Collection TimeReceived TimeBloodVenous blood / UnknownVenipuncture / Unknown 06/23/2025 4:21 AM EDT1 4:44 AM EDT Narrative Authorizing ProviderResult TypeResult StatusJesse A Park DOLAB BLOOD ORDERABLES Final ResultPerforming OrganizationAddressty/State/ZIP CodePhone Number [address] [place] [address], [place] * (ABNORMAL) Comprehensive metabolic panel (06/23/2025 4:21 AM EDT) Only the most recent of3 resultswithin the time period is included. ComponentValueRef RangeTest MethodAnalysis TimePerformed AtPathologist Signature JDFNDG429371 - 146 mmol/L1 5:05 AM [facility] HOSPITALPOTASSIUM3.93.5 - 5.0 mmol/L1 5:05 AM [facility] HOSPITALCHLORIDE10898 - 109 mmol/L1 5:05 AM [facility] HOSPITALCARBON GVAWBBF19(L)22 - 32 mmol/L1 5:05 AM EDT [facility]OS[facility]ITALANION GAP85 - 15 mmol/L1 5:05 AM EDT [facility] HOSPITALBLOOD UREA OOWUZMWJ47 - 23 mg/dL06/23/2025 5:05 AM [facility] HOSPITALCREATININE0.440.40 - 1.00 mg/dL 06/23/2025 5:05 AM [facility]OSPITALComment:METHOD TRACEABLE TO IDMS JPHZRNGGYSXAWWC2767 - 99 mg/dL06/23/2025 5:05 AM [facility]FF[facility] HOSPITALCALCIUM8.78.5 - 10.5 mg/dL06/23/2025 5:05 AM EDT [facility] HOSPITALTOTAL PROTEIN6.36.0 - 8.0 g/dL06/23/2025 5:05 AM [facility] HOSPITALALBUMIN3.1(L)3.2 - 5.3 g/dL06/23/2025 5:05 AM [facility]OSPITALALKALINE DXDUCSJNTJT9515 - 130 U/L 06/23/2025 5:05 AM [facility]ITALAST11<=41 U/L1 5:05 AM EDFOSTORIA CITY HOSPITALALT16<=31 U/L1 5:05 AM [facility] HOSPITALBILIRUBIN,TOTAL0.50.3 - 1.2 mg/dL 06/23/2025 5:05 AM EDFOSTORIA CITY HOSPITALEGFR Non-Race Dependent >90>=60 ml/min/1.73sq.m1 5:05 AM EDTPROMEDICA [facility] Comment: eGFR not reported due to non-numeric value for Creatinine. Reported eGFR is based on the CKD-EPI 2020 equation that does not use a race coefficient. Specimen (Source)Anatomical Location / LateralityCollection Method / Volume Collection TimeReceived TimeBloodVenous blood / UnknownVenipuncture / Unknown 06/23/2025 4:21 AM EDT1 4:44 AM EDT Narrative Authorizing ProviderResult TypeResult StatusJesse Lou Melendez DOLAB BLOOD ORDERABLES Final ResultPerforming OrganizationAddressCity/State/ZIP CodePhone Number [facility] [address] [place] [address], [place] * Ultrasound abdomen limited (06/17/2025 11:31 [...] on 06/17/2025 11:35 AM Authorizing ProviderResult TypeResult Rizwan VEGA US ORDERABLES Final Result * Er Extra Urine (06/17/2025 11:24 AM EDT)ComponentValueRef RangeTest Method Analysis TimePerformed AtPathologist SignatureExtra TubeAuto Resulted 06/17/2025 1:01 PM EDAULTMAN ALLIANCE COMMUNITY HOSPITALpecimen (Source) Anatomical Location / LateralityCollection Method / VolumeCollection Time Received TimeUrineUrine / UnknownCollection / Eqpulbm9806/17/2025 11:24 AM EDT 06/17/2025 11:24 AM EDT Narrative Authorizing ProviderResult TypeResult Rizwan UNGER ORDERABLES Final ResultPerforming OrganizationAddressCity/State/ZIP CodePhone Number [facility] [address] [place] [address], * POCT Nursing Urine Macroscopic UA (06/17/2025 11:09 AM EDT)ComponentValueRef RangeTest MethodAnalysis TimePerformed AtPathologist SignatureVERMONT PS[facility] Urine Specific Gravity1.0251.010, 1.015, 1.020, 1.7497006/17/2025 11:10 AM EDT [facility] Urine Leukocyte EsteraseNegative Mrwdjean65/08/2025 11:10 AM [facility] Urine ItskfhtPamdrvzkRlshedqd69/08/2025 11:10 AM [facility] Urine pH6.55.0, 6.0, 6.5, 7.0, 7.5, 8.0, 8.5, 5. 11:10 AM [facility]UN[facility] Urine ProteinNegativeNegative 06/17/2025 11:10 AM [facility] Urine Glucose EkjgdushIlzfofcn85/08/2025 11:10 AM [facility] Urine VptavuuMctlwxvpTquaxkzi24/08/2025 11:10 AM [facility]UN[facility] Urine Urobilinogen2.0 E.U./dL06/17/2025 11:10 AM [facility]UN[facility] Urine NhgoasjtrNiokjurjKhbqbhqi56/08/2025 11:10 AM [facility] Urine Blood/HGBNegativeNegative 06/17/2025 11:10 AM [facility] (Source) Anatomical Location / LateralityCollection Method / VolumeCollection Time Received OvyvQalwc07/08/2025 11:09 AM EDT1 11:10 AM EDT Narrative Authorizing ProviderResult TypeResult Rizwan Melvin [facility]ERO[facility] TEST ORDERABLESFinal ResultPerforming OrganizationAddressty/State/ZIP CodePhone Number [facility] [address] [place] [address], * Light Blue Top (06/17/2025 11:04 AM EDT)ComponentValueRef RangeTest Method Analysis TimePerformed AtPathologist SignatureExtra TubeAuto Resulted 06/17/2025 1:01 PM [facility] (Source) Anatomical Location / LateralityCollection Method / VolumeCollection Time Received TimeBloodVenous blood / Gvjpnwx8906/17/2025 11:04 AM EDT1 11:12 AM EDT Narrative Authorizing ProviderResult TypeResult StatusJaswinder Melvin MDLAB BLOOD ORDERABLES Final ResultPerforming OrganizationAddressCity/State/ZIP CodePhone Number [facility] [address] [facility] [place] [address], * Thiamin (Vitamin B1), WB (05/29/2025 1:48 PM EDT)ComponentValueRef RangeTest MethodAnalysis TimePerformed AtPathologist SignatureTHIAMIN (VITAMIN B1), [place] [address] - 180 nmol/L06/02/2025 2:13 PM EDHCA FLORIDA MEMORIAL HOSPITAL LABORATORIESComment: ADDITIONAL INFORMATION This test was developed and its performance characteristics determined by [facility] in a manner consistent with CLIA requirements. This test has not been cleared or approved by the U.S. Food and Drug Administration. Test Performed by: [place] [address] Primary Care Coordinator: Jayce Daniels Ph.D.; CLIA# [id number] Specimen (Source)Anatomical Location / LateralityCollection Method / Volume Collection TimeReceived TimeBloodVenous blood / UnknownVenipuncture / Unknown 05/29/2025 1:48 PM EDT05/29/2025 1:48 PM EDT Narrative Authorizing ProviderResult TypeResult StatusIra [facility] BLOOD ORDERABLES Final ResultPerforming OrganizationAddressCity/State/ZIP CodePhone Number [facility] [address] [place] [address], * Zinc, Serum (05/29/2025 1:48 PM EDT)ComponentValueRef RangeTest MethodAnalysis TimePerformed AtPathologist SignatureZINC, S6260 - 106 mcg/dL05/30/2025 2:14 PM EDHCA FLORIDA MEMORIAL HOSPITAL LABORATORIESComment: ADDITIONAL INFORMATION This test was developed and its performance characteristics determined by [facility] in a manner consistent with CLIA requirements. This test has not been cleared or approved by the U.S. Food and Drug Administration. Test Performed by: [facility] [place] [address] Primary Care Coordinator: Jayce Daniels Ph.D.; CLIA# [id number] Specimen (Source)Anatomical Location / LateralityCollection Method / Volume Collection TimeReceived TimeBloodVenous blood / UnknownVenipuncture / Unknown 05/29/2025 1:48 PM EDT05/29/2025 1:48 PM EDT Narrative Authorizing ProviderResult TypeResult Lara GILBERT BLOOD ORDERABLES Final ResultPerforming OrganizationAddressCity/State/ZIP CodePhone Number [facility] [address] [place] [address], [place] * Protein creat ratio (05/29/2025 1:48 PM EDT)ComponentValueRef RangeTest Method Analysis TimePerformed AtPathologist SignatureURINE PROTEIN, RANDOM (MG/L)110 <120 mg/L05/29/2025 3:58 PM [facility] LABORATORYURINE CREATININE,YEQ803.80mg/dL05/29/2025 3:58 PM [facility] LABORATORYU/PRO/ALCOHOLISM WORKER RATIO CALC0.08<=0. 3:58 PM [facility] LABORATORYSpecimen (Source)Anatomical Location / LateralityCollection Method / VolumeCollection TimeReceived TimeUrineUrine specimen collection, clean catch / UnknownCollection / Diqqrnj5705/29/2025 1:48 PM EDT05/29/2025 1:48 PM EDT Narrative [facility] - 05/29/2025 3:58 PM EDT Nephrotic Syndrome is associated with ratios >3.5 Authorizing ProviderResult TypeResult StatusEster UNGER ORDERABLESFinal ResultPerforming OrganizationAddressCity/State/ZIP CodePhone Number [facility] [address] [place] [address], * LDH (05/29/2025 1:48 PM EDT)ComponentValueRef RangeTest MethodAnalysis Time Performed AtPathologist ShcezmhpcOEL863423 - 235 U/L05/29/2025 3:58 PM EDT [facility]ATORYSpecimen (Source)Anatomical Location / LateralityCollection Method / VolumeCollection TimeReceived TimeBloodVenous blood / UnknownVenipuncture / Wjdriav5205/29/2025 1:48 PM EDT05/29/2025 1:48 PM EDT Narrative Authorizing ProviderResult TypeResult StatusIra Terence GUERREROLAB BLOOD ORDERABLES Final ResultPerforming OrganizationAddressCity/State/ZIP CodePhone Number [facility] [address] [place] [address], * (ABNORMAL) Iron and TIBC (05/29/2025 1:48 PM EDT)ComponentValueRef RangeTest MethodAnalysis TimePerformed AtPathologist AuvoigmouKXGR8848 - 170 ug/dL 05/29/2025 3:58 PM [facility] VNTHHARMPFXQUTMRYJSWZ996297 - 336 mg/dL05/29/2025 3:58 PM [facility] LABORATORYIRON BINDING 465(H)250 - 425 ug/dL05/29/2025 3:58 PM [facility] IRON RTBDCTDBIK3340 - 50 % JSVYTYYHOS59/19/2025 3:58 PM [facility] LABORATORYSpecimen (Source)Anatomical Location / LateralityCollection Method / VolumeCollection TimeReceived TimeBloodVenous blood / Unknown Venipuncture / Zfyxhng1605/29/2025 1:48 PM EDT05/29/2025 1:48 PM EDT Narrative Authorizing ProviderResult TypeResult Lara GILBERT BLOOD ORDERABLES Final ResultPerforming OrganizationAddressCity/State/ZIP CodePhone Number [facility] [address] [place] [address], * (ABNORMAL) Vitamin D 25 hydroxy (05/29/2025 1:48 PM EDT)ComponentValueRef RangeTest MethodAnalysis TimePerformed AtPathologist SignatureVITAMIN D 25 HYD TOT27.1(L)30.0 - 100.0 ng/mL05/29/2025 4:18 PM [facility] LABORATORYSpecimen (Source)Anatomical Location / LateralityCollection Method / VolumeCollection TimeReceived TimeBloodVenous blood / UnknownVenipuncture / Wdvkgrd3105/29/2025 1:48 PM EDT05/29/2025 1:48 PM EDT Narrative [facility] - 05/29/2025 4:18 PM EDT Vitamin D status 25 [place] Vitamin D Deficiency <20 ng/mL Insufficiency ? 20-29 ng/mL Sufficiency ? 30-100 ng/mL Toxicity >100 ng/mL NOTE: A pediatric reference range has not been established by the geospatial information scientist of this kit. The [place] [employer] recommends a Vitamin D level of = or >20ng/mL in infants and children. Authorizing ProviderResult TypeResult StatusSelect At [place] silkfred BLOOD ORDERABLES Final ResultPerforming OrganizationAddressCity/State/ZIP CodePhone Number [facility] [address] [place] [address] [address] [place] [address], * (ABNORMAL) Protein S activity (05/29/2025 1:48 PM EDT)ComponentValueRef Range Test MethodAnalysis TimePerformed AtPathologist SignaturePROTEIN S QPFSZVHP79 (L)64 - 149 %06/05/2025 9:14 AM [facility] LABORATORYComment: Oral contraceptives, hormonal therapy, , [...] 1:48 PM EDT Narrative Authorizing ProviderResult TypeResult StatusSelect At [place] silkfred BLOOD ORDERABLES Final ResultPerforming OrganizationAddressCity/State/ZIP CodePhone Number [facility] [address] [place] [address], * Protein C activity (05/29/2025 1:48 PM EDT)ComponentValueRef RangeTest Method Analysis TimePerformed AtPathologist SignaturePROTEIN C OUBIPLXY03084 - 140 % 06/05/2025 9:14 AM [facility] LABORATORYSpecimen (Source) Anatomical Location / LateralityCollection Method / VolumeCollection Time Received TimeBloodVenous blood / UnknownVenipuncture / Qirgpjz0105/29/2025 1:48 PM EDT05/29/2025 1:48 PM EDT Narrative Authorizing ProviderResult TypeResult StatusShore Memorial HospitalLAB BLOOD ORDERABLES Final ResultPerforming OrganizationAddressCity/State/ZIP CodePhone Number [facility] [address] [place] [address], * Anti thrombin 3 funct (05/29/2025 1:48 PM EDT)ComponentValueRef RangeTest MethodAnalysis TimePerformed AtPathologist SignatureANTI THROMBIN 3 KMCRF2951 - 128 %06/05/2025 9:14 AM [facility] LABORATORYSpecimen (Source)Anatomical Location / LateralityCollection Method / VolumeCollection TimeReceived TimeBloodVenous blood / UnknownVenipuncture / Wyeapsa7005/29/2025 1:48 PM EDT05/29/2025 1:48 PM EDT Narrative Authorizing ProviderResult TypeResult StatusShore Memorial HospitalLAB BLOOD ORDERABLES Final ResultPerforming OrganizationAddressCity/State/ZIP CodePhone Number [facility] [address] [place] [address], * (ABNORMAL) CBC without diff (05/29/2025 1:48 PM EDT)ComponentValueRef Range Test MethodAnalysis TimePerformed AtPathologist SignatureWBC9.84 - 11 x10E9/L 05/29/2025 3:30 PM [facility] LABORATORYRBC Count3.813.8 - 5.2 X10E12/L05/29/2025 3:30 PM [facility] Etqtnpfeyl34.811.7 - 15.5 g/dL05/29/2025 3:30 PM [facility] HWBMEOELNZXcjgnnpeie32.8(L)35 - 47 %05/29/2025 3:30 PM [facility] EKXHMAYYROIQX5225 - 100 fL05/29/2025 3:30 PM [facility] YOBDBGTTSUFYF27.927 - 34 pg05/29/2025 3:30 PM [facility] TKGRGGFPMWISSM80.832 - 36 g/dL05/29/2025 3:30 PM [facility] OMOTADWCBLEQL79.511.5 - 15 %05/29/2025 3:30 PM [facility] LABORATORYPlatelet Tgcag667689 - 450 X10E9/L05/29/2025 3:30 PM EDT [facility]ORATORYMPV8.47 - 12 HI05/29/2025 3:30 PM [facility] LABORATORYSpecimen (Source)Anatomical Location / Laterality Collection Method / VolumeCollection TimeReceived TimeBloodVenous blood / UnknownVenipuncture / Rajookn1105/29/2025 1:48 PM EDT05/29/2025 1:48 PM EDT Narrative Authorizing ProviderResult TypeResult Lara GILBERT BLOOD ORDERABLES Final ResultPerforming OrganizationAddressCity/State/[place] [address], * Uric acid (05/29/2025 1:48 PM EDT)ComponentValueRef RangeTest MethodAnalysis TimePerformed AtPathologist SignatureURIC ACID4.42.6 - 7.2 mg/dL05/29/2025 3:58 PM [facility] LABORATORYSpecimen (Source)Anatomical Location / LateralityCollection Method / VolumeCollection TimeReceived Time BloodVenous blood / UnknownVenipuncture / Dtsvgct2705/29/2025 1:48 PM EDT 05/29/2025 1:48 PM EDT Narrative Authorizing ProviderResult TypeResult Lara Marie MDLAB BLOOD ORDERABLES Final ResultPerforming OrganizationAddressCity/State/ZIP CodePhone Number [facility] [address] [place] [address], * B-type natriuretic peptide (05/29/2025 1:48 PM EDT)ComponentValueRef RangeTest MethodAnalysis TimePerformed AtPathologist IjyqxjwqxGYE32<=100 pg/mL05/29/2025 4:03 PM [facility] LABORATORYSpecimen (Source)Anatomical Location / LateralityCollection Method / VolumeCollection TimeReceived Time BloodVenous blood / UnknownVenipuncture / Szyqryw4605/29/2025 1:48 PM EDT 05/29/2025 1:48 PM EDT Narrative Authorizing ProviderResult TypeResult StatusIra Terence GUERREROLAB BLOOD ORDERABLES Final ResultPerforming OrganizationAddressCity/State/ZIP CodePhone Number [facility] [address] [place] [address], * Folate (05/29/2025 1:48 PM EDT)ComponentValueRef RangeTest MethodAnalysis Time Performed AtPathologist SignatureFOLIC ACID13.3>5.8 ng/mL05/29/2025 4:18 PM [facility] LABORATORYSpecimen (Source)Anatomical Location / LateralityCollection Method / VolumeCollection TimeReceived TimeBloodVenous blood / UnknownVenipuncture / Kditewp6305/29/2025 1:48 PM EDT05/29/2025 1:48 PM EDT Narrative Authorizing ProviderResult TypeResult StatusIra Terence GUERREROLAB BLOOD ORDERABLES Final ResultPerforming OrganizationAddressCity/State/ZIP CodePhone Number [facility] [address] [place] [address], * Ferritin (05/29/2025 1:48 PM EDT)ComponentValueRef RangeTest MethodAnalysis TimePerformed AtPathologist ZolxmdadrYXMUCHXT6676 - 307 ng/mL05/29/2025 4:12 PM [facility] LABORATORYSpecimen (Source)Anatomical Location / LateralityCollection Method / VolumeCollection TimeReceived TimeBloodVenous blood / UnknownVenipuncture / Wqxbire4805/29/2025 1:48 PM EDT05/29/2025 1:48 PM EDT Narrative Authorizing ProviderResult TypeResult StatusEster Severance MDLAB BLOOD ORDERABLES Final ResultPerforming OrganizationAddressCity/State/ZIP CodePhone Number [facility] [address] [place] [address], * Vitamin B12 (05/29/2025 1:48 PM EDT)ComponentValueRef RangeTest MethodAnalysis TimePerformed AtPathologist SignatureVITAMIN [id number] - 914 pg/mL05/29/2025 4:20 PM EDTTMER[facility]ATORYSpecimen (Source)Anatomical Location / LateralityCollection Method / VolumeCollection TimeReceived Time BloodVenous blood / UnknownVenipuncture / Rrtgkys2405/29/2025 1:48 PM EDT 05/29/2025 1:48 PM EDT Narrative Authorizing ProviderResult TypeResult StatusEster Marie MDLAB BLOOD ORDERABLES Final ResultPerforming OrganizationAddressCity/State/ZIP CodePhone Number [facility] [address] [place] [address], * [facility] COMPREHENSIVE ANATOMIC SURVEY (05/29/2025 12:07 PM EDT)Anatomical RegionLateralityModalityOB-GYNUltrasoundSpecimen (Source)Anatomical Location / LateralityCollection Method / VolumeCollection TimeReceived Time05/29/2025 10:13 AM EDT Narrative 06/01/2025 5:47 PM EDT NAME: ??TARA PERKINS : 1995 SEX: F Accession Number: [id number] ORDERING PHYSICIAN: ESTER MARIE REFERRING PHYSICIAN: GONZALEZ PASCAL Coding Procedures ? 93481: Ultrasound, uterus, real time with image documentation, and maternal evaluation ? plus detailed anatomic examination, transabdominal approach;single or first gestation ? 02006: Ultrasound, uterus, real time with image documentation, [...] (oz) ? 11 oz EFW by: ?Hadlock (BBS-JY-IU-FL) Extended Tibia ??24.7 mm 18w 5d 17% Natalya Swimming Pool Cleaner ? 5.8 mm CM ? 4.6 mm ?? 37% Nicolaides Inner IOD ?12.4 mm Outer IOD ?29.1 mm Nasal bone ? 5.7 mm ?? 14% [facility] Head / Face / Neck Cephalic index [...] Heart/Thorax: RVOT view. LVOT view. 3-vessel view. 3-tptikm-guvwadc view. Situs. Aortic arch view. Bicaval view. [...] PERKINS : 1995 SEX: F Accession Number: [id number] ORDERING PHYSICIAN: ESTER MARIE REFERRING PHYSICIAN: GONZALEZ PASCAL Coding Procedures 14582: Ultrasound, uterus, real time with image documentation, and maternal evaluation plus detailed anatomic examination, transabdominalapproach;single or first gestation 26849: Ultrasound, uterus, real time with imagedocumentation, transvaginal [...] ft. Weight 108 kg, 239 lb. Initial zbfomy567 kg, 239 lb. BMI 46.68 kg/m??. Initial [...] EFW (oz) 11 oz EFW by: Hadlock (GZN-ZI-GO-FL) Extended Tibia 24.7 mm 18w 5d 17% Natalya Swimming Pool Cleaner 5.8 mm CM 4.6 mm 37% Nicolaides [...] Heart/Thorax: RVOT view. LVOT view. 3-vessel view. 2-gohvjx-pkebxwx view.Situs. Aortic arch view. Bicaval view. Ductal [...] Marginal cord insertion noted. Recommendations Please see [facility] documentation from today. The patient is scheduled in four to six week(s) to complete anatomicsurvey. Subsequent follow up or other follow up as clinically determined byprimary OB provider unless otherwise specified by [facility]. Results forwarded to ordering provider so they can follow up with thepatient as necessary. Authorizing ProviderResult TypeResult StatusIra Terence GUERREROHILLCREST [facility] US ORDERABLES Final Result * Ultrasound limited [...] (Latest Code Status on File) Date ActivatedDate VfqqchxpqwgLcjjzpbm09/14/2025 9:38 AM06/23/2025 11:46 AM * Full Code Date ActivatedDate InactivatedComments04/23/2024 11:06 AM04/24/2024 4:47 PM * Full Code Date ActivatedDate OtwcraflssmBmtcczky78/20/2022 11:42 PM07/31/2022 2:48 PM * Full Code Date ActivatedDate InactivatedComments11/24/2018 10:44 PM11/27/2018 4:48 PM Care Teams Team MemberRelationshipSpecialtyStart DateEnd Date Riddhi Plata MD PCP - GeneralFamily Medicine12/09/23
--- OUTSIDE RECORDS SUMMARY | 2025-07-08 09:29 | XMS_ITS | Encounter Summary ---
Author Organization [facility] Address [address] [place] [address] Care Team Providers Care Bi Manager Name Role Phone Riddhi Plata MD Primary Care Provider [phone] Reason for Visit * ReasonCommentsMed Refill Encounter Details DateTypeDepartmentCare Team (Latest Contact Info)Whauvviqnio14/18/2025Refill [facility] [address] [place] [address] Bin Morales DO [address] [place], [place] [address]Paulette Varela, [place] [address] Pre-existing essential hypertension during , antepartum ([facility]); Primary hypertension; History of pulmonary embolism Social History Tobacco UseTypesPacks/DayYears UsedDateSmoking Tobacco: NeverSmokeless Tobacco: NeverAlcohol UseStandard Drinks/WeekCommentsNever0 (1 standard drink = 0.6 oz pure alcohol)Caffeine intake: 1-2 cups per day coffeeEstimated Date of KpeusvmuJgbtskmvBfa89/06/2026Based on last menstrual period of 01/09/2025Sex and Gender InformationValueDate RecordedSex Assigned at BirthNot on fileLegal Sex Bwmove7111/22/2022 9:44 PM EDTGender IdentityNot on fileSexual OrientationNot on filedocumented as of this encounter Plan of Treatment DateTypeDepartmentCare Team (Latest Contact Info)Xecuxqtmxix78/20/2025 9:00 AM ESTRoutine [facility] [address] [facility] [place] [address] Bin Morales, DO [address] [facility] [address] [place] [address] documented as of this encounter Goals GoalPatient Goal TypeAssociated ProblemsRecent ProgressPatient-Stated?Author Help patient manage antidepressant medication Care PlanPatient on antidepressant monitoring planRdidhi Lerma MD Baseline PHQ-9 Care PlanBaseline PHQ-9Riddhi Lerma, MDdocumented as of this encounter Visit Diagnoses Diagnosis Pre-existing essential hypertension during , antepartum ([facility]) Primary hypertension Unspecified essential hypertension History of pulmonary embolism Personal history of venous thrombosis and embolism documented in this encounter Additional Health Concerns Active ProblemsNoted DateDiagnosed DatePatient on antidepressant monitoring plan 4Baseline PHQ-904documented as of this encounter Care Teams Team MemberRelationshipSpecialtyStart DateEnd Date Riddhi Plata MD [address] [place] [address] PCP - GeneralFamily Medicine01/16/23documented as of this encounter
--- OUTSIDE RECORDS SUMMARY | 2025-07-08 09:29 | XMS_ITS | Encounter Summary ---
Author Organization [facility] Address [address] [place] [address] Care Team Providers Care Database Support Name Role Phone Riddhi Plata MD Primary Care Provider Encounter Details DateTypeDepartmentCare Team (Latest Contact Info)Ilrzrvuvsgj49/29/2025amboo flowsheet CHEVY TAYLOR [address] [place] [address] Winter English PA [address] [facility] [address] [place], [facility] Social History Tobacco UseTypesPacks/DayYears UsedDateSmoking Tobacco: NeverSmokeless Tobacco: NeverAlcohol UseStandard Drinks/WeekCommentsNever0 (1 standard drink = 0.6 oz pure alcohol)Caffeine intake: 1-2 cups per day coffeeEstimated Date of XyalrvgkQjadvayvWsk44/06/2026Based on last menstrual period of 01/09/2025Sex and Gender InformationValueDate RecordedSex Assigned at BirthNot on fileLegal Sex Pstazh8311/22/2022 9:44 PM EDTGender IdentityNot on fileSexual OrientationNot on filedocumented as of this encounter Plan of Treatment DateTypeDepartmentCare Team (Latest Contact Info)Fnrdmutgezc15/20/2025 9:[address] [place] [address] Bin Morales DO [address] [place] [place], [facility] documented as of this encounter Goals GoalPatient [...] DateEnd Date Riddhi Plata MD [address] [place] [address] PCP - GeneralFamily Medicine01/16/23documented as of this encounter
--- OUTSIDE RECORDS SUMMARY | 2025-07-08 09:29 | XMS_ITS | Clinical Summary ---
Author Organization [facility] Healthcare Address [address] [place] [address] Care Team Providers Care Payroll Examiner Name Role Phone Riddhi Plata MD Primary Care Provider [phone] Allergies Active AllergyReactionsCriticalityNoted DateCommentsSumatriptanAnaphylaxis, ZyfhkvhQbmc07/21/2019 IMITREX FOR MIGRAINES Other Reaction(s): Other (See [...] 28-0.8 MG tablet Indications:, unspecified gestational age ([facility]),Encounter for supervision of normal first in first trimester ([facility])Take 1 tablet by mouth Daily [...] Expired Active Problems ProblemNoted DateDiagnosed DateH/O gastric mkvavu8604/20/20250570Zgesvfv50/07/2023 Disorder of endocrine nrifum4705/17/2023Frequent /07/2023Irregular excegbo2705/17/2023Menorrhagia with regular cycle05/17/2023lass 3 severe obesity due to excess calories with serious comorbidity and body mass index (BMI) of50.0 to 59.9 in adult05/17/2023Nausea and zcnytlfs60/07/2023cute pulmonary embolism 05/17/2023Single subsegmental pulmonary embolism without acute cor pulmonale 05/17/2023Thyroid cteaep0005/17/2023Urinary tract infection without hematuria 05/17/2023OSA on CPAP02/22/2023Morbid obesity with body mass index of 60.0-69.9 in adult01/26/2023olycystic ovarian otanfnt6701/26/2023rimary hypertension 01/26/2023neumonia due to infectious mingiahk63/20/2022Family history of /08/2022History of pulmonary wdeqkawu87/08/2022djustment disorder with jrpuwvn1711/30/2021History of diet controlled gestational diabetes mellitus (GDM)11/30/2021Family history of diabetes during ctimxapxv67/21/2022Preeclampsia in period ([facility])11/26/2021 Overview (05/17/2023): 11/29/21: Discharged home with Labetalol 600 QID and Procardia 90 XL qd. Pt has appt with Dr. Morales in [place] 11/30/21 for her PP appt. Pt has BP cuff at home already and would like to f/u with [facility] Wharf Tender 12/09/21: Decreased to Labetalol 600 TID 12/26/21: Decreased to Procardia 90 XL qd. Iron deficiency xdqpwe2612/29/2019Gastroesophageal reflux zmfzfiw1512/15/2019 Seasonal allergic rhinitis due to kaofcz7812/15/20198239Ioxghqz95/28/2019Anemia 06/26/20193050Wgjbctkham09/04/2019 Overview (05/17/2023): Started on Celexa Gestational diabetes mellitus (GDM) ([facility])12/09/20183952Yfbhbn23/01/2019 Estimated Date of XdeuyvbjMccakzrfRri10/06/2026Based on last menstrual period of 01/09/2025 Encounters DateTypeDepartmentCare YvrdDbvdufkhecz79/29/2025 8:30 AM EDTRoutine NOMS [address]ole [address] [place] [phone] Winter English PA Second trimester ([facility]); 25 weeks gestation of ([facility]); Cbssgapz82/29/2025Bamboo flowsheet N[facility] [address] [place] [phone] Winter English PA 5Clinisync Result Encounter NOMS External Department Unsolicited Gonzalez Morales DO 5Clinisync Result Encounter NOMS External Department Unsolicited Provider, Generic External Data 06/27/2025Refill [facility] [address] [place] [phone] Gonzalez Morales, Pre-existing essential hypertension during , antepartum ([facility]); Primary hypertension; History of pulmonary ipujdsqb91/15/2025 1:40 PM EDTRoutine NOMS Nichole Robles [facility] [place] [address] Winter English PA Gallstones and inflammation of gallbladder without obstruction (Primary Dx); Second trimester ([facility]); 23 weeks gestation of ([facility]); History of diet controlled gestational diabetes mellitus (GDM); Preeclampsia in period ([facility]); History of pulmonary embolism; Primary hypertension; Diabetes mellitus tqhykjzsk46/14/2025Telephone NOMS Nichole [address]RE[address]N Travis [facility] [place] [phone] Gonzalez Morales DO 06/18/2025Orders Only [facility] Nichole Robles [facility] [place] [address] Leslye Chairez LPN 06/10/2025 8:50 AM EDTRoutine NOMS [place] [address] Nena Spicer NP 21 weeks gestation of ([facility]); Well woman exam; Second trimester ([facility]); Screen for STD (sexually transmitted disease); Well woman exam with routine gynecological exam; Diabetes mellitus screening; Iron deficiency anemia, unspecified iron deficiency anemia type06/10/2025 Clinisync Result Encounter NOMS External Department Unsolicited Nena Spicer NP 06/10/2025amboo flowsheet N[facility]S Nichole Robles [facility] [place] [address] Nena Spicer NP 06/02/2025bstract [facility] Nichole TAYLOR [address] [place] [address] [place] [address] Gonzalez Morales DO 06/01/2025External Result Encounter [facility] [address] [facility] [place] [address] Gonzalez Morales DO 05/25/2025Refill NOMS [facility] Medicine [address] [facility] [place] [address] Riddhi Plata MD Ndgmbah4305/14/2025 8:30 AM EDTRoutine NOMS [place] [facility] [address] [facility] [place] [address] Nena Spicer NP Well woman exam with routine gynecological exam; Screening, , for anatomic survey ([facility]); Second trimester ([facility]); 17 weeks gestation of ([facility]); Vaginal discharge; STD rnianxrg34/02/2025bstract N[facility] [place] [facility] [address] [facility] [place] [address] Roseanne Jones MA 05/04/2025Telephone [facility] [address] [facility] [place] [address] Maryana Orozco LPN 04/30/2025Telephone [facility] [address] [facility] [place] [address] Marva Cooney [place] 04/27/2025Telephone [facility] [address] [facility] [place] [address] Marva Cooney [place] 04/20/2025 9:10 AM EDTRoutine N[facility] [address] [facility] [place] [address] Gonzalez Morales DO Second trimester ([facility]); 14 weeks gestation of ([facility]); Primary hypertension ; H/O gastric bypass; History of diet controlled gestational diabetes mellitus (GDM); Diabetes mellitus unmrutljs88/11/2025amboo flowsheet N[facility] [address] [facility] [place] [phone] Gonzalez Morales DO from Last 3 Months Immunizations ImmunizationAdministration DatesNext DueDTaP, Qyllckjvcrl60/07/1999,10/23/1996, 01/17/1996,09/28/1995,03/28/1995HPV, Xobuxsnunnig43/29/2009,02/05/2009, 12/01/2008Hep A, ped/adol, 2 dose02/08/2012,02/05/2009,12/01/2008Hep B, Adolescent or Onwphulaw82/09/1996,09/28/1995,03/28/1995HiB, unspecified 10/23/1996,01/17/1996,09/28/1995,03/28/1995Influenza, injectable, quadrivalent, preservative free08/11/2019Influenza, seasonal, epnpvshnli78/01/2011MMR 01/14/1999,03/28/1995Meningococcal USX3L2912/01/2008Polio, Uvnujrrkbbs53/07/1999, 01/17/1996,09/28/1995,03/28/1995Tdap12/01/2008 Family History Medical HistoryRelationNameCommentsDiabetesFatherHypertensionFatherMental illnessFatherCancerMaternal GrandmotherHypertensionMotherDiabetesPaternal GrandfatherCancerPaternal ObicxwrcihuVetwhqyvDyceCskitpUqwszogeLbusqkq7Qkvevlbs2 FatherAliveMaternal GrandmotherMotherAlivePaternal GrandfatherPaternal RchlfsmflflPyklid5Vrr8 Social History Tobacco UseTypesPacks/DayYears UsedDateSmoking Tobacco: NeverSmokeless Tobacco: Never Tobacco Cessation:Counseling Given: Not Answered Alcohol UseStandard Drinks/WeekCommentsNever0 (1 standard drink = 0.6 oz pure alcohol)Caffeine intake: 1-2 cups per day coffeeEstimated Date of SbwixpioEubzykkzJnu11/06/2026Based on last menstrual period of 01/09/2025Sex and Gender InformationValueDate RecordedSex Assigned at BirthNot on fileLegal Sex Hjssbf6411/22/2022 9:44 PM EDTGender IdentityNot on fileSexual OrientationNot on file Last Filed Vital Signs Vital SignReadingTime TakenCommentsBlood Qfkojked994/6810 8:38 AM EDT Qyejg726510/10/2024 3:32 PM ESTTemperature--Respiratory Mtqa274810/10/2024 3:32 PM ESTOxygen Rjfifbkxxd59%10/10/2024 3:32 PM ESTInhaled Oxygen Concentration-- Dmkakz311 kg (237 lb 6.4 oz)07/08/2025 8:38 AM NNJImuvrh600.9 cm (5' 1 ) 10/10/2024 3:32 PM ESTBody Mass Index44.8610/10/2024 3:32 PM EST Plan of Treatment DateTypeDepartmentCare Team (Latest Contact Info)Mmwlihepsxt17/20/2025 9:00 AM ESTRoutine N[facility] [address] [facility] [place] [phone] CarmenGonzalez reza, [address] [facility] [address] [place], [place] [phone] Health MaintenanceDue DateLast DoneCommentsVaricella Vaccines (1 of 2 - 13+ 2- dose series)2007Pneumococcal Vaccine: Pediatrics (0 to 5 Years) and At- Risk Patients (6 to 64 Years) (1 of 2 - PCV)2013DTaP/Tdap/Td Vaccines (7 - Td or Tdap), 01/14/1999, 10/23/1996, Additional history existsCOVID-19 Vaccine ( season)2025Influenza Vaccine (#1) /10/2018, 07/11/2011HPV/Hajkcg11, 12/11/2017 Cervical Cancer Uywieusyu45/01/2028Pap SmearHepatitis B XpzovouyUzorjvpaa52/09/1996, 09/28/1995, 03/28/1995HIB VaccinesCompleted 10/23/1996, 01/17/1996, 09/28/1995, Additional history existsIPV Vaccines Vrepzkkxb74/07/1999, 01/17/1996, 09/28/1995, Additional history existsMMR StoglocfAkppojqyd35/07/1999, 03/28/1995HPV JikrsrviRygzhlgdl94/29/2009, 02/05/2009, 12/01/2008Hepatitis A AtlyfbvnFurgelycp25/31/2012, 02/05/2009, 12/01/2008Meningococcal B VaccineAged OutNo longer eligible based on patient's age to complete this topicMeningococcal VaccineAged OutNo longer eligible based on patient's age to complete this topicRotavirus VaccinesAged OutNo longer eligible based on patient's age to complete this topic Goals GoalPatient Goal TypeAssociated ProblemsRecent ProgressPatient-Stated?Author Help patient manage antidepressant medication Care PlanPatient on antidepressant monitoring Riddhi Mcdonald MD Baseline PHQ-9 Care PlanBaseline PHQ-9Riddhi Lerma MD Procedures Procedure NamePriorityDate/TimeAssociated DiagnosisCommentsPOCT URINALYSIS VBRRUYOXYczhzvf22/29/2025 8:48 AM EDT 25 weeks gestation of ([facility]) MMJBWAMXGcxklmn47/26/2025 8:00 PM EDT TBH UA (CLEAN/CATCH) RAILROAD SIGNAL OPERATOR/MICRO IF IND.Somitxh8307/05/2025 7:50 PM EDT ALL CBC WITH AUTO ITXTAuwpurp03/22/2025 9:21 AM EDT MLR HEMOGLOBIN Q2JBplhllu00/22/2025 9:21 AM EDT RECURRENT VAGINITIS (HTRX)Ndmltbt7906/10/2025 10:04 AM EDT POCT URINALYSIS UQZZJDMBYehdoqh25/01/2025 9:14 AM EDT 21 weeks gestation of ([facility]) IGP,APTIMA HPV,AGE NVHAOohkufs21/01/2025 9:06 AM EDT PAP USOWQMagcxlc15/01/2025 12:00 AM EDTUS OB 14+ WEEKS ANATOMY SCAN06/01/2025 5:47 PM EDT POCT URINALYSIS ZVPBUBRUVzczhdy85/04/2025 9:32 AM EDT Second trimester ([facility]) 17 weeks gestation of ([facility]) POCT URINALYSIS TEFNWUAHTcyknjy32/11/2025 9:22 AM EDT Second trimester ([facility]) THINPREP PAP AND HPV MRNA E6/E7 W/RFL HPV 16,18/30Baecjnh66/28/2023 4:13 PM EDT Well woman exam with routine gynecological exam from Last 3 Months or Most Recently Relevant to Health Maintenance Results * (ABNORMAL) POCT urinalysis dipstick manually resulted (07/08/2025 8:48 AM EDT) Only the most recent of4 resultswithin the time period is included. ComponentValueRef RangeTest MethodAnalysis TimePerformed AtPathologist Signature Color, UAYellowClarity, UAClearGlucose, UANegativeNegative - 2000(110) ++++ mg/dLBilirubin, UANegativeNegative - 4(70) +++ mg/dLKetones, UANegativeNegative - 160(16) ++++ mg/dLSpec Grav, UA1.0301 - 1.03Blood, UANegativeNegative - 50 Raul/mcLpH, UA6.05 - 9Protein, UATraceNegative - 2000(20) ++++ mg/dLUrobilinogen, UA0.20.2 - 12 mg/dLLeukocytes, UATraceNegative - 500+++ Ramo/mcLNitrite, UA NegativeNegative - PositiveSpecimen (Source)Anatomical Location / Laterality Collection Method / VolumeCollection TimeReceived SxtaOiaun42/29/2025 8:48 AM EDT Narrative Authorizing ProviderResult TypeResult StatusPratt Clinic / [facility] OF CARE TEST ENTER/EDIT ORDERABLESFinal Result * AMNISURE (07/05/2025 8:00 PM EDT)ComponentValueRef RangeTest MethodAnalysis TimePerformed AtPathologist SignatureTBH AMNISURENEGATIVENEGATIVETBHSpecimen (Source)Anatomical Location / LateralityCollection Method / VolumeCollection TimeReceived Time07/05/2025 8:00 PM EDT1 8:21 PM EDT Narrative CLINISYNC - 07/05/2025 8:27 PM EDT Authorizing ProviderResult TypeResult StatusValerie L Floro CNMLAB BLOOD ORDERABLESFinal ResultPerforming OrganizationAddressCity/State/ZIP CodePhone Number [facility] * (ABNORMAL) TBH UA (CLEAN/CATCH) RAILROAD SIGNAL OPERATOR/MICRO IF IND. (07/05/2025 7:50 PM EDT) ComponentValueRef RangeTest MethodAnalysis TimePerformed AtPathologist SignatureCOLOR URINEYELLOWYELLOWTBHCLARITY URINECLEARCLEARTBHSPECIFIC GRAVITY URINE1.0201.005 - 1.025TBHPH URINE6.05.0 - 9.0TBHPROTEIN URINENEGATIVE NEG/TRACE mg/dLTBHGLUCOSE URINE UANEGATIVENEGATIVE mg/dLTBHBILIRUBIN URINE NEGATIVENEGATIVETBHKETONES URINETRACE(A)NEGATIVE mg/dLTBHBLOOD URINENEGATIVE NEGATIVETBHNITRITE URINENEGATIVENEGATIVETBHUROBILINOGEN URINE2.0(A)0.2 - 1.0 EU/dLTBHLEUKOCYTE ESTERASE URINENEGATIVENEGATIVETBHURINE MICROSCOPIC INDICATED NOTBHSpecimen (Source)Anatomical Location / LateralityCollection Method / VolumeCollection TimeReceived Time07/05/2025 7:50 PM EDT1 8:17 PM EDT Narrative CLINISYNC - 07/05/2025 8:22 PM EDT Authorizing ProviderResult TypeResult StatusCorey Carmen DOCLINISYNCFinal Result Performing OrganizationAddressCity/State/ZIP CodePhone Number [facility] * MLR HEMOGLOBIN A1C (07/01/2025 9:21 AM EDT)ComponentValueRef RangeTest Method Analysis TimePerformed AtPathologist SignatureGLYCOHEMOGLOBIN A1C4.84.5 - 6.2 %TBHComment: ADA RECOMMENDED LIMIT 4.0 - 6.0 ADA THERAPEUTIC TARGET < 7.0 ACTION SUGGESTED > 7.0 ESTIMATED AVERAGE ACFDFUX29bn/dLTBHSpecimen (Source)Anatomical Location / LateralityCollection Method / VolumeCollection TimeReceived Time07/01/2025 9:21 AM EDT1 9:38 AM EDT Narrative CLINISYNC - 07/01/2025 9:54 AM EDT Authorizing ProviderResult TypeResult StatusGeneric External Data Provider CLINISYNCFinal ResultPerforming OrganizationAddressCity/State/ZIP CodePhone Number [facility] * (ABNORMAL) ALL CBC WITH AUTO DIFF (07/01/2025 9:21 AM EDT)ComponentValueRef RangeTest MethodAnalysis TimePerformed AtPathologist SignatureTBH WBC11.4(H) 4.0 - 11.0 10 3/uLTBHTBH RBC3.26(L)4.20 - 5.40 10 6/uLTBHTBH HGB10.2(L)12.0 - 16.0 g/dLTBHTBH HCT29.7(L)36.0 - 48.0 %TBHTBH MCV91.181.0 - 99.0 fLTBHTBH MCH 31.326.7 - 34.0 pgTBHTBH MCHC34.329.9 - 35.2 g/dLTBHTBH RDW13.011.0 - 15.0 % TBHTBH QBH885871 - 450 10 3/uLTBHTBH MPV9.79.5 - 13.5 [...] Provider CLINISYNCFinal ResultPerforming OrganizationAddressCity/State/ZIP CodePhone Number [facility] * RECURRENT VAGINITIS (HTRX) (06/10/2025 10:04 AM EDT)ComponentValueRef Range Test MethodAnalysis TimePerformed AtPathologist SignatureATOPOBIUM VAGINAE0 19.961 - 24.689 ppm06/11/2025 6:30 AM EDTHealthTrackRx at LabPortATOPOBIUM VAGINAENot Mpqzreyk02.961 - 24.689 ppm06/11/2025 6:30 AM EDTHealthTrackRx at [facility] CenterPortBVAB 2,3 (BACTERIAL VAGINOSIS ASSOCIATED BACTERIA 2, 3); MOBILUNCUS SPP 019.961 - 24.689 ppm06/11/2025 6:30 AM EDTHealthTrackRx at [facility] HospitalBVAB 2,3 (BACTERIAL VAGINOSIS ASSOCIATED BACTERIA 2, 3); MOBILUNCUS SPPNot Detected 19.961 - 24.689 ppm06/11/2025 6:30 AM EDTHealthTrackRx at LabPortCANDIDA ALBICANS, PARAPSILOSIS, BRGBXXDRVH580.000 - 30.347 ppm06/11/2025 6:30 AM EDT [facility] at LabPortCANDIDA ALBICANS, PARAPSILOSIS, TROPICALISNot Detected 23.000 - 30.347 ppm06/11/2025 6:30 AM EDTHealthTrackRx at LabPortCANDIDA CNWTMUGC876.000 - 31.618 ppm06/11/2025 6:30 AM EDTHealthTrackRx at [facility] YUAN GLABRATANot Lvzyyxmt26.000 - 31.618 ppm06/11/2025 6:30 AM EDT [facility] HospitalCANDIDA QOLVIP487.000 - 30.873 ppm06/11/2025 6:30 AM EDTHealthTrackRx at [facility] HospitalCANDIDA KRUSEINot Yvaqqmhe06.000 - 30.873 ppm 06/11/2025 6:30 AM EDTHealthTrackRx at [facility] HospitalCHLAMYDIA UBJIIUBWMTH990.000 - 31.586 ppm06/11/2025 6:30 AM EDTHealthTrackRx at [facility] HospitalCHLAMYDIA TRACHOMATIS Not Wuwxtmsh28.000 - 31.586 ppm06/11/2025 6:30 AM EDTHealthTrackRx at [facility] GARDNERELLA EJBFFVYYV247.961 - 24.689 ppm06/11/2025 6:30 AM EDTHealthTrackRx at [facility] HospitalGARDNERELLA VAGINALISNot Umecbynm88.961 - 24.689 ppm06/11/2025 6:30 AM EDTHealthTrackRx at [facility] HospitalMEGASPHAERA (TYPES 1, 2)019.961 - 24.689 ppm 06/11/2025 6:30 AM EDTHealthTrackRx at [facility] HospitalMEGASPHAERA (TYPES 1, 2)Not Dxmgzkwa89.961 - 24.689 ppm06/11/2025 6:30 AM EDTHealthTrackRx at [facility] NEISSERIA HXHHVDIKPLZ579.000 - 32.587 ppm06/11/2025 6:30 AM EDTHealthTrackRx at [facility] HospitalNEISSERIA GONORRHOEAENot Fixobzyd22.000 - 32.587 ppm06/11/2025 6:30 AM EDTHealthTrackRx at [facility] HospitalTRICHOMONAS EGBOARWNC864.000 - 31.995 ppm 06/11/2025 6:30 AM EDTHealthTrackRx at [facility] HospitalTRICHOMONAS VAGINALISNot Mayxhjcy49.000 - 31.995 ppm06/11/2025 6:30 AM EDTHealthTrackRx at [facility] MYCOPLASMA YGTMSXZUIC495.961 - 24.689 ppm06/11/2025 6:30 AM EDTHealthTrackRx at [facility] HospitalMYCOPLASMA GENITALIUMNot Ozocrtva53.961 - 24.689 ppm06/11/2025 6:30 AM EDTHealthTrackRx at LabOur Lady Of Peace HospitalSpecimen (Source)Anatomical Location / LateralityCollection Method / VolumeCollection TimeReceived TimeTissue 06/10/2025 10:04 AM EDT1 1:43 AM EDT Narrative Authorizing ProviderResult TypeResult StatusNena Spicer NPLAB BLOOD ORDERABLESFinal ResultPerforming OrganizationAddressCity/State/ZIP CodePhone Number [facility] [address] [address] * IGP,APTIMA HPV,AGE GDLN (06/10/2025 9:06 AM [...] at: 01 =G ?[facility] ?? [address] [place] ??[address] ?? Flores Rodgers MD, IGP, APTIMA HPV, RFX 16/18,45Note.TBHComment: ?? TESTS ? RESULT ??FLAG ??UNITS ?REF RANGE ??LAB DIAGNOSIS: ?02 ?? NEGATIVE FOR INTRAEPITHELIAL LESION OR MALIGNANCY. Specimen adequacy: ?02 ?? Satisfactory for evaluation. No endocervical component is identified. Performed by: ? 02 ?? Jorge Whittington, Swimmer (ASCP) . ? 02 Note: ? Note [...] at: 02 WB ?[facility] ?? [address] [place] ??[address] ?? lFores Rodgers MD, HPV APTIMANegativeNegativeTBHComment: This nucleic acid amplification test detects fourteen high- risk HPV types (16,18,31,33,35,39,45,51,52,56,58,59,66,68) without differentiation. Performed at: ??=G - [facility] [address] ??[id number] Block Hacker: Flores Rodgers MD, Phone: ??[phone] Performed at: ??WB - [facility] [address] ??[id number] Block Hacker: Flores Rodgers MD, Phone: ??[phone] Specimen (Source)Anatomical Location / LateralityCollection Method / Volume Collection TimeReceived Time06/10/2025 9:06 AM EDT1 8:57 PM EDT Narrative CLINISYNC - 06/17/2025 3:09 PM EDT SPATULA-ALONE ENDOCERVIX Authorizing ProviderResult TypeResult StatusGeneric External Data ProviderLAB BLOOD ORDERABLESFinal ResultPerforming OrganizationAddressCity/State/ZIP Code Phone Number [facility] * Pap Smear (06/10/2025 12:00 AM [...] PM EDT THIS EXAM WAS PERFORMED AT [facility] NAME: ??TARA PERKINS : 1995 SEX: F Accession Number: [id number] ORDERING PHYSICIAN: ESTER PRATT REFERRING PHYSICIAN: GONZALEZ MORALES Coding Procedures ? 99575: Ultrasound, uterus, real time with image documentation, and maternal evaluation ? plus detailed anatomic examination, transabdominal approach;single or first gestation ? 12164: Ultrasound, uterus, real time with image documentation, [...] (oz) ? 11 oz EFW by: ?Hadlock ([id number]-FL) Extended Tibia ??24.7 mm 18w 5d 17% Natalya Batch Operator ? 5.8 mm CM ? 4.6 [...] Heart/Thorax: RVOT view. LVOT view. 3-vessel view. 8-kmfrot-zvykbvw view. Situs. Aortic arch view. Bicaval view. [...] Marginal cord insertion noted. Recommendations Please see [facility] documentation from today. The patient is scheduled in four to six week(s) to complete anatomic survey. Subsequent follow up or other follow up as clinically determined by primary OB provider unless otherwise specified by [facility]. Results forwarded to ordering provider so they can follow up with the patient as necessary. The copy-to physician of this order is GONZALEZ Jenkins The ordering physician of this order is ESTER Lopez Procedure Note Radiology, Radiologist, MD - 06/01/2025 THIS EXAM WAS PERFORMED AT [facility] NAME: TARA PERKINS : 1995 SEX: F Accession Number: [id number] ORDERING PHYSICIAN: ESTER PRATT REFERRING PHYSICIAN: GONZALEZ MORALES Coding Procedures 74661: Ultrasound, uterus, real time with image documentation, and maternal evaluation plus detailed anatomic examination, transabdominalapproach;single or first gestation 00300: Ultrasound, uterus, real time with imagedocumentation, transvaginal [...] ft. Weight 108 kg, 239 lb. Initial kdpqwa005 kg, 239 lb. BMI 46.68 kg/m???. Initial [...] EFW (oz) 11 oz EFW by: Hadlock ([id number]-EW-FL) Extended Tibia 24.7 mm 18w 5d 17% Natalya Batch Operator 5.8 mm CM 4.6 mm 37% Nicolaides Inner IOD 12.4 mm Outer IOD 29.1 mm Nasal bone 5.7 mm 14% [facility] Head / Face / Neck Cephalic index [...] Heart/Thorax: RVOT view. LVOT view. 3-vessel view. 3-xnusys-liujusm view.Situs. Aortic arch view. Bicaval view. Ductal [...] Marginal cord insertion noted. Recommendations Please see [facility] documentation from today. The patient is scheduled in four to six week(s) to complete anatomicsurvey. Subsequent follow up or other follow up as clinically determined byprimary OB provider unless otherwise specified by [facility]. Results forwarded to ordering provider so they can follow up with thepatient as necessary. The copy-to physician of this order is GONZALEZ Jenkins The ordering physician of this order is ESTER Lopez Authorizing ProviderResult TypeResult StatusCorey Carmen GARCIA OB US PROCEDURES Final Result * THINPREP PAP AND HPV MRNA E6/E7 W/RFL HPV 16,18/45 (06/07/2023 4:13 PM EDT) Narrative Authorizing ProviderResult TypeResult StatusAmy Amador GIVENS BLOOD ORDERABLES Final ResultPerforming OrganizationAddressCity/State/ZIP CodePhone Number EXTERNAL LAB from Last 3 Months or Most Recently Relevant to Health Maintenance Additional Health Concerns Active ProblemsNoted DateDiagnosed DatePatient on antidepressant monitoring plan 02/01/2024aseline PHQ-9002/01/2024 [place] [address] Care Teams Team MemberRelationshipSpecialtyStart DateEnd Date Riddhi Plata MD [address] [place] [address] PCP - GeneralFamily Medicine01/16/23
--- OUTSIDE RECORDS SUMMARY | 2025-07-08 09:29 | XMS_ITS | Encounter Summary ---
Author Organization [facility] Address [address] [place] [address] Care Team Providers Care Silk Screen Printing Racker Name Role Phone Riddhi Plata MD Primary Care Provider [phone] Encounter Details DateTypeDepartmentCare Team (Latest Contact Info)Egkrkxwonbr20/22/2025linisync Result Encounter [facility] External Department Unsolicited Provider, Generic External Data Social History Tobacco UseTypesPacks/DayYears UsedDateSmoking Tobacco: NeverSmokeless Tobacco: NeverAlcohol UseStandard Drinks/WeekCommentsNever0 (1 standard drink = 0.6 oz pure alcohol)Caffeine intake: 1-2 cups per day coffeeEstimated Date of OfmplejgWcxgtejnIhq63/06/2026Based on last menstrual period of 01/09/2025Sex and Gender InformationValueDate RecordedSex Assigned at BirthNot on fileLegal Sex Fiusgp5511/22/2022 9:44 PM EDTGender IdentityNot on fileSexual OrientationNot on filedocumented as of this encounter Plan of Treatment DateTypeDepartmentCare Team (Latest Contact Info)Ugtqbasrroe06/20/2025 9:00 AM ESTRoutine [facility] [address] [id number] Bin Morales DO [address] [place] [address] documented as of this encounter Goals GoalPatient Goal TypeAssociated ProblemsRecent ProgressPatient-Stated?Author Help patient manage antidepressant medication Care PlanPatient on antidepressant monitoring Riddhi Mcdonald MD Baseline PHQ-9 Care PlanBaseline PHQ-9NoMikeer, Riddhi F, MDdocumented as of this encounter Procedures Procedure NamePriorityDate/TimeAssociated DiagnosisCommentsMLR HEMOGLOBIN A1C Vsyhfmz4607/01/2025 9:21 AM EDT ALL CBC WITH AUTO YSZKUhzxvwf80/22/2025 9:21 AM EDT documented in this encounter Results * (ABNORMAL) ALL CBC WITH AUTO DIFF (07/01/2025 9:21 AM EDT)ComponentValueRef RangeTest MethodAnalysis TimePerformed AtPathologist SignatureTBH WBC11.4(H) 4.0 - 11.0 10 3/uLTBHTBH RBC3.26(L)4.20 - 5.40 10 6/uLTBHTBH HGB10.2(L)12.0 - 16.0 g/dLTBHTBH HCT29.7(L)36.0 - 48.0 %TBHTBH MCV91.181.0 - 99.0 fLTBHTBH MCH 31.326.7 - 34.0 pgTBHTBH MCHC34.329.9 - 35.2 g/dLTBHTBH RDW13.011.0 - 15.0 % TBHTBH [id number] - 450 10 3/uLTBHTBH MPV9.79.5 - 13.5 [...] 7.0 ACTION SUGGESTED > 7.0 ESTIMATED AVERAGE TUFHRTR67bi/dLTBHSpecimen (Source)Anatomical Location / LateralityCollection Method / VolumeCollection [...] Date Riddhi Plata MD [address] [place] [address] PCP - GeneralFamily Medicine01/16/23documented as of this encounter
--- OUTSIDE RECORDS SUMMARY | 2025-07-08 09:30 | XMS_ITS | Encounter Summary ---
Author Organization [facility] Address [address] [facility] [address] Care Team Providers Care Communications Engineer Name Role Phone Riddhi Plata MD Primary Care Provider [phone] Encounter Details DateTypeDepartmentCare Team (Latest Contact Info)Jljatkmblnr31/26/2025linisync Result Encounter [facility] Unsolicited Bin Morales, DO [address] [place], [place] [id number] Social History Tobacco UseTypesPacks/DayYears UsedDateSmoking Tobacco: NeverSmokeless Tobacco: NeverAlcohol UseStandard Drinks/WeekCommentsNever0 (1 standard drink = 0.6 oz pure alcohol)Caffeine intake: 1-2 cups per day coffeeEstimated Date of XajtflnwRytqgqaeYgo86/06/2026Based on last menstrual period of 01/09/2025Sex and Gender InformationValueDate RecordedSex Assigned at BirthNot on fileLegal Sex Tkcehg0411/22/2022 9:44 PM EDTGender IdentityNot on fileSexual OrientationNot on filedocumented as of this encounter Plan of Treatment DateTypeDepartmentCare Team (Latest Contact Info)Ikqapcwceiw10/20/2025 9:00 AM ESTRoutine [facility] [address] [place] [address] Bin Morales, DO [address] [place], [place] [phone] documented as of this encounter Goals GoalPatient Goal TypeAssociated ProblemsRecent ProgressPatient-Stated?Author Help patient manage antidepressant medication Care PlanPatient on antidepressant monitoring Riddhi Mcdonald MD Baseline PHQ-9 Care PlanBaseline PHQ-9Riddhi Lerma, MDdocumented as of this encounter Procedures Procedure NamePriorityDate/TimeAssociated DiagnosisCommentsAMNISURERoutine 07/05/2025 8:00 PM EDT [facility] UA (CLEAN/CATCH) FURNITURE FINISHER/MICRO IF IND.Bdjyzzq0907/05/2025 7:50 PM EDT documented in this encounter Results * AMNISURE (07/05/2025 8:00 PM EDT)ComponentValueRef RangeTest MethodAnalysis TimePerformed AtPathologist SignatureTBH AMNISURENEGATIVENEGATIVETBHSpecimen (Source)Anatomical Location / LateralityCollection Method / VolumeCollection TimeReceived Time07/05/2025 8:00 PM EDT1 8:21 PM EDT Narrative [facility] - 07/05/2025 8:27 PM EDT Authorizing ProviderResult TypeResult StatusValerie Naveen Blood CNMLAB BLOOD ORDERABLESFinal ResultPerforming OrganizationAddressCity/State/ZIP CodePhone Number [facility]IN[facility] TB * (ABNORMAL) [facility] UA (CLEAN/CATCH) FURNITURE FINISHER/MICRO IF IND. (07/05/2025 7:50 PM EDT) ComponentValueRef [...] Carmen DOCLINISYNCFinal Result Performing OrganizationAddressCity/State/ZIP CodePhone Number [facility] documented in this encounter Visit Diagnoses Not on filedocumented in this encounter Additional Health Concerns Active ProblemsNoted DateDiagnosed DatePatient on antidepressant monitoring plan 4Baseline PHQ-904documented as of this encounter Care Teams Team MemberRelationshipSpecialtyStart DateEnd Date Riddhi Plata MD [address] [place] [address] PCP - GeneralFamily Medicine01/16/23documented as of this encounter
--- OUTSIDE RECORDS SUMMARY | 2025-07-08 09:39 | XMS_ITS | CCD ---
Author Organization [facility] Care Team Providers Care Senior Ui Software Engineer Name Role Phone PHYSICIAN, DEFAULT Admitting Unavailable [...] RIDDHI Jonas Primary Care Unavailable Boni GUERRERO, [facility] Primary Care Provider [phone] Boni GUERRERO, [facility] Primary Care Provider Boni GUERRERO, [facility] Primary Care Provider Boni GUERRERO, [facility] Primary Care Provider Boni GUERRERO, [facility] Primary Care Provider [phone] Boni GUERRERO, [facility] Primary Care Provider MORIAH GUTHRIE Attending Unavailable [...] Allergen(s)Allergy TypeDate of OnsetReaction(s) Facility (4 sources)PlasminDrug [id number] (20 sources)SUMAtriptan; Translations: [SUMATRIPTAN]Drug [id number] Anaphylaxis, Unknown, Other (See Comments)[employer] Phone: Medications Current Medications MedicationDrug Class(es)DatesSig (Normalized)Sig (Original)acetaminophen 300 mg / codeine phosphate 30 mg oral tablet (2 sources)Opioid AgonistStart: 06-24-2025 End: 14-30-2767xznd 1 tablet by mouth every six hours for painacetaminophen- codeine (Tylenol w/ Codeine #3) 300-30 MG tablet Indications: Gallstones and inflammation of gallbladder without obstruction Take 1 tablet by mouth every 6 (six) hours if needed for severe pain for up to 5 days 20 tablet 06/24/2025 06/29/2025 Activeacetaminophen 325 mg / oxyCODONE hydrochloride 5 mg oral tablet (7 sources)Opioid AgonistStart: 04-24-2024 End: 16-68-3285mgcROCJCB-acetaminophen (PERCOCET) 5-325 mg per tablet Indications: Acute post-operative pain Take 1 tablet by mouth every 6 (six) hours as needed for pain for up to 7 days. Max Daily Amount: 4 tablets 15 tablet 04/24/2024 05/01/2024 ActiveStart: 04-23-2024 End: 94-77-9181ytoy 2 tablets by mouth every four hours as needed for pain2 tablet, oral, Every 4 hours PRN, severe pain - pain scale 7-10, Starting on Sun04/23/24 at 1412, Look-alike/sound-alike medication - verify indication for use. aspirin 81 mg delayed release oral tablet (7 sources)Platelet Aggregation Inhibitor, Nonsteroidal Anti-inflammatory Drug Start: 41-14-7973ffsg 1 tablet by mouth in the morningaspirin 81 mg Indications: 20 weeks gestation of , Chronic hypertension affecting Take 1 tablet (81 mg total) by mouth in the morning. 30 tablet 6 05/29/2025 Active Start: 75-07-8583274 mg, Oral, DAILY, First dose on Sun12/01/21 at 0015, Until Discontinued Please give ASA dose upon admission if not done in ER then DAILY azithromycin 500 mg oral tablet (6 sources)Macrolide AntimicrobialStart: 08-20-2024 End: 05-19-4809xxnlrizrjvva (Zithromax) 500 MG tablet 08/20/2024 03/20/2025 DiscontinuedbusPIRone hydrochloride 15 mg oral tablet (20 sources)Start: 07-04-2023 End: 57-38-7180tsic 1 tablet by mouth twice daily at bedtimebusPIRone (Buspar) 15 MG tablet Indications: Anxiety TAKE 1 TABLET BY MOUTH 2 TIMES A DAY (MORNING AND BEFORE BEDTIME) 180 tablet 11 05/25/2025 ActiveStart: 07-04-2023 End: 73-08-1383mobj 50 mg by mouth in the morningbuspirone HCl (BUSPIRONE ORAL) Take 50 mg by mouth in the morning and 50 mg before bedtime. 07/04/2023 07/03/2024Start: 07-04-2023 End: 66-17-1157tjgy 50 mg by mouth in the morningbuspirone HCl (BUSPIRONE ORAL) Take 50 mg by mouth in the morning and 50 mg before bedtime. 07/04/2023 07/03/2024 ActiveStart: 07-04-2023 End: 15-45-3692xhfg 50 mg by mouth in the morningbuspirone HCl (BUSPIRONE ORAL) Take 50 mg by mouth in the morning and 50 mg before bedtime. 0 07/04/2023 07/03/2024 Activecalcium carbonate 500 mg chewable tablet (1 source)Start: 38-76-2035utwrytt carbonate (TUMS) chewable tablet 1,000 mg10 ml calcium gluconate 100 mg/ml injection (1 source)Start: 27-05-1918rnxmljp gluconate 10 % injection 1,000 mgcefuroxime 500 mg oral tablet (2 sources)Cephalosporin AntibacterialStart: 08-25-2024 End: 82-04-6872fjdo 1 tablet by mouth in the morningcefuroxime (Ceftin) 500 MG tablet Indications: Non-recurrent acute serous otitis media of left ear Take 1 tablet (500 mg) by mouth in the morning and 1 tablet (500 mg) before bedtime. Do all this for14 days. 28 tablet 08/25/2024 09/08/2024 Activecephalexin 500 mg oral capsule (2 sources)Cephalosporin AntibacterialStart: 06-12-2024 End: 25-89-3356nkyi 1 capsule by mouth in the morning, [...] oral tablet (20 sources)Vitamin DStart: 06-01-2025 End: 92-52-6756kknb 1 tablet by mouth once in the morningcholecalciferol 1,000 units tablet Indications: Vitamin D deficiency Take 1 tablet (1,000 Units total) by mouth in the morning for 30 days. 30 tablet 3 06/01/2025 07/01/2025 Active Start: 03-27-2024 End: 65-20-8404hqaj 1 tablet by mouth every weekcholecalciferol, vitamin D3, 50,000 units tablet Indications: Vitamin D deficiency Take 1 tablet (50,000 Units total) by mouth once a week. 12 tablet 03/27/2024 01/01/2025 Discontinued (Therapy completed)Start: 05-31-2023 End: 10-24-6012ilgv 1 tablet by mouth two times weeklycholecalciferol, vitamin D3, 50,000 units tablet Indications: Vitamin D deficiency Take 1 tablet (50,000 Units total) by mouth 2 (two) times a week. 24 tablet 0 05/31/2023 09/27/2023 DiscontinuedStart: 05-30-2023 End: 42-59-9881I6-50 1.25 MG (70031 UT) capsule 05/30/2023 03/20/2025 Discontinuedcitalopram 20 mg oral tablet (20 sources)Serotonin Reuptake InhibitorStart: 02-01-2024 End: 49-56-7235chmk 1 tablet by mouth in the morningcitalopram (CeleXA) 20 MG tablet Indications: Anxiety Take 1 tablet (20 mg) by mouth in the morning. 100 tablet 3 02/01/2024 ActiveStart: 68-09-5846tbqr 1 tablet by mouth once daily citalopram (CELEXA) 10 MG tablet Take 1 tablet by mouth daily 30 tablet 3 11/27/2021 ActivediphenhydrAMINE hydrochloride 25 mg oral tablet (2 sources)Histamine-1 Receptor AntagonistStart: 73-52-3690foenwlrbvbPYFZI (BENADRYL) tablet 25 mgdocusate sodium 50 mg / sennosides, prison 8.6 mg oral tablet (6 sources)Start: 73-01-5839ovhj 1 tablet by mouth in the morningsennosides- docusate sodium (SENOKOT-S) 8.6-50 mg Take 1 tablet by mouth in the morning. 30 tablet Active0.4 ml enoxaparin sodium 100 mg/ml prefilled syringe (13 sources)Low Molecular Weight HeparinStart: 89-09-2540eqnlmi 0.4 mL by subcutaneous injection at bedtimeenoxaparin (LOVENOX) 40 mg/0.4 mL syringe Indications: 20 weeks gestation of , History ofmaternal pulmonary embolus Inject 0.4 mL (40 mg total) under the skin in the morning and at bedtime. 12 mL 11 05/29/2025 ActiveStart: 04-25-2024 End: 02-00-3071mgoorc 0.4 mL by subcutaneous injection onceenoxaparin (LOVENOX) 40 mg/0.4 mL syringe Indications: Class 3 severe obesity due to excess calories with serious comorbidity and body mass index (BMI) of 60.0 to 69.9 in adult ([facility]) , History ofpulmonary embolism Inject 0.4 mL (40 mg total) under the skin Every 12 (twelve) hours for 14 days. 11.2 mL 04/25/2024 04/24/2024 DiscontinuedStart: 04-24-2024 End: 71-05-2817xgvmkt 0.4 mL by subcutaneous injection onceenoxaparin (LOVENOX) 40 mg/0.4 mL syringe Indications: Class 3 severe obesity due to excess calories with serious comorbidity and body mass index (BMI) of 60.0 to 69.9 in adult ([facility]) , History ofpulmonary embolism Inject 0.4 mL (40 mg total) under the skin Every 12 (twelve) hours for 14 days. 11.2 mL 04/24/2024 05/08/2024 Active Start: 04-24-2024 End: 16-48-552118 mg, subcutaneous, Every 12 hours scheduled, First [...] mg oral tablet (12 sources)Start: 01-02-2025 End: 09-22-9778uaip 1 tablet by mouth in the morningferrous sulfate 325 (65 FE) MG tablet Indications: History of Bonnie-en-Y gastric bypass , Postsurgical malabsorption , Malnutrition following gastrointestinal surgery , Iron deficiency Take 1 tablet (325 mg total) by mouth in the morning. 90 tablet 1 06/08/2025 ActiveStart: 42-56-0398hexy 325 mg by mouth once daily at breakfast 325 mg, Oral, DAILY WITH BREAKFAST, First dose on Sun12/01/21 at 0800, Until DiscontinuedStart: 50-12-3823vngw 1 tablet by mouth once daily at breakfast ferrous sulfate (IRON 325) 325 (65 Fe) MG tablet Indications: Iron deficiency anemia secondary to inadequate dietary iron intake Take 1 tablet by mouth daily (with breakfast) 180 tablet 1 11/30/2021 ActiveStart: 54-48-0355gjfwnvi sulfate (FE TABS 325) EC tablet 325 mgfluticasone propionate 0.05 mg/actuat metered dose nasal spray (10 sources)CorticosteroidStart: 11-12-2023 End: 58-52-6970lfwqwsnifyc (Flonase) 50 MCG/ACT nasal spray 11/12/2023 03/20/2025 Discontinuedfolic acid 0.4 mg oral tablet (8 sources)Start: 90-06-7891ukmx 1 tablet by mouth in the morningfolic acid (FOLVITE) 400 MCG tablet Take 1 tablet (400 mcg total) by mouth in the morning. 30 tablet 6 06/08/2025 ActiveStart: 01-02-2025 End: 99-42-0275xnfz 1 tablet by mouth in the morningfolic acid (FOLVITE) 1 mg tablet Indications: History of Bonnie-en-Y gastric bypass , Postsurgical mal absorption , Malnutrition following gastrointestinal surgery , Folate deficiency Take 1 tablet (1 mg total) by mouth in the morning. 90 tablet 01/02/2025 06/08/2025 DiscontinuedhydrOXYzine hydrochloride 25 mg oral tablet (2 sources)AntihistamineStart: 07-06-7233fssfYMZjmnd (ATARAX) tablet 25 mg labetalol hydrochloride 200 mg oral tablet (20 sources)beta-Adrenergic BlockerStart: 19-24-2680scwl 1 tablet by mouth three times daily at bedtimelabetalol (Normodyne) 200 MG tablet Indications: Pre- existing essential hypertension during , antepartum ([facility]HS-HCC) , Primary hypertension , History of pulmonary embolism TAKE 1 TABLET BY MOUTH 3 TIMES A DAY IN THE MORNING, EVENING AND BEFORE BEDTIME 90 tablet 1 07/01/2025 Active Start: 05-04-2025 End: 19-43-0905wqll 1 tablet by mouth in the morning, then take 1 tablet by mouth in the evening, then take 1 tablet by mouth at bedtimelabetalol (Normodyne) 200 MG tablet Indications: Pre-existing essential hypertension during , antepartum ([facility]HS-HCC) , Primary hypertension , History of pulmonary embolism Take 1 tablet (200 mg) by mouth in the morning and 1 tablet (200 mg) in the evening and 1 tablet (200 mg) before bedtime. 90 tablet 1 05/04/2025 ActiveStart: 09-29-2712xxcz 600 mg by mouth four times sgifr432 mg, Oral, 4 TIMES DAILY, First dose on Belkis 12/01/21 at 0015, Until DiscontinuedStart: 11-28-2021 End: 72-62-1990vfte 2 tablets by mouth four times dailylabetalol (NORMODYNE) 300 MG tablet Take 2 tablets by mouth 4 times daily 60 tablet 3 11/28/2021 Active Start: 11-27-2021 End: 84-51-9689kzynkhovk (NORMODYNE) tablet 600 mgStart: 11-27-2021 End: 52-99-4481jwfn 3 tablets by mouth at bedtimelabetalol (NORMODYNE) 200 MG tablet Take 3 tablets by mouth in the morning, at noon, and at qkbolpr498 tablet 1 11/27/2021 11/28/2021 Discontinued (REORDER)Start: 43-31-5667sbanfepmw (NORMODYNE;TRANDATE) 5 MG/ML injectionStart: 02-11-1979rrdqvxubn (NORMODYNE;TRANDATE) injection 40 mgStart: 11-26-2021 End: 98-79-2694bissbyvba (NORMODYNE) tablet 400 mgStart: 50-04-6770sjpxtutmc (NORMODYNE;TRANDATE) injection 20 mgStart: 11-23-2021 End: 12-22-9608fyzklzqio (NORMODYNE) 200 MG tabletmagnesium oxide 400 mg oral tablet (2 sources)Start: 03-90-3557hshd 1 tablet by mouth once dailymagnesium oxide (MAG-OX) 400 MG tablet TAKE 1 TABLET BY MOUTH EVERY DAY 0 08/25/2021 Nuvzeg972 ml magnesium sulfate 10 mg/ml injection (5 sources)Start: 49-24-9586nfwf 1000 mg intravenously every hour as needed1,000 [...] in Patients with CrCl<30ml/min Start: 11-26-2021 End: 41-27-3302gvqbpubbf sulfate (94940 mg/500mL infusion)Start: 11-25-2021 End: 37-77-9239ablkyggvx sulfate 2000 mg in 50 mL IVPB premixmelatonin 5 mg oral tablet (1 source)Start: 86-18-6030vdhkjxqhi tablet 5 mgNIFEdipine 90 mg osmotic 24 hr extended release oral tablet (10 sources)Dihydropyridine Calcium Channel BlockerStart: 10-34-0427ozwm 1 tablet by mouth once dailyNIFEdipine (PROCARDIA XL) 90 MG extended release tablet Take 1 tablet by mouth daily 30 tablet 3 11/28/2021 ActiveStart: 11-28-2021 End: 98-20-4875ksqn 1 tablet by mouth once dailyNIFEdipine (PROCARDIA XL) 60 MG extended release tablet Take 1 tablet by mouth daily 30 tablet 3 11/28/2021 11/28/2021 Discontinued (Stop Taking at Discharge)Start: 55-86-7365BTGDihpvgt (PROCARDIA XL) extended release tablet 90 mgStart: 11-26-2021 End: 45-69-8853RWIXgujggn (PROCARDIA XL) extended release tablet 30 mg ondansetron 4 mg disintegrating oral tablet (18 sources)Serotonin-3 Receptor AntagonistStart: 03-20-2025 End: 88-11-3428lwpp 1 tablet by mouth every six hours for nauseaondansetron ODT (Zofran-ODT) 4 MG disintegrating tablet Indications: , unspecified gestational age ([facility]) , Nausea Take 1 tablet (4 mg) by mouth every 6 (six) hours if needed for nausea or vomiting 30 tablet 3 03/20/2025 04/19/2025 Active Start: 04-24-2024 End: 74-67-3096ntop 1 tablet by mouth every six hours as needed for nausea and vomitingondansetron ODT (ZOFRAN ODT) 4 mg disintegrating tablet Dissolve 1 tablet (4 mg total) on tongue every 6 (six) hours as needed for nausea or vomiting. 20 tablet 1 04/24/2024 01/01/2025 DiscontinuedStart: 04-23-2024 End: 60-96-8892fgjc 4 mg intravenously every four hours as needed for nausea and vomitingStart: 11-30-2021 End: 10-32-4128tqjizofuupf (ZOFRAN) injection 4 mgStart: 11-26-2021 End: 07-95-8675qvwmbiveztx (ZOFRAN-ODT) disintegrating tablet 4 mgStart: 74-17-6014moyuwxdmemu (ZOFRAN-ODT) 4 MG disintegrating tablet DISSOLVE 1 TABLET EVERY 6 HOURS NEEDED FOR NAUSEA AND VOMITING 0 10/25/2021 Active End: 64-04-0961anxk 1 tablet by mouth every eight hours as needed for nausea and vomitingondansetron (ZOFRAN) 4 mg tablet Take 1 tablet (4 mg total) by mouth every 8 (eight) hours as needed for nausea or vomiting. 05/29/2025 Discontinued ondansetron (ZOFRAN-ODT) disintegrating tablet 4 mg (1 source)Start: 30-86-3521qublmtskbxj (ZOFRAN-ODT) disintegrating tablet 4 mg oseltamivir 75 mg oral capsule (2 sources)Neuraminidase InhibitorStart: 10-10-2024 End: 88-30-9762kgbu 1 capsule by mouth in the morningoseltamivir (Tamiflu) 75 MG capsule Indications: Influenza A Take 1 capsule (75 mg) by mouth in themorning and 1 capsule (75 mg) before bedtime. Do all this for 5 days. 10 capsule 10/10/2024 10/15/2024 ActivePotassium Chloride (1 source)Start: 85-78-0569wcsztxyfg chloride (KLOR-CON M) extended release tablet 40 mEqpredniSONE 20 mg oral tablet (6 sources)Start: 08-20-2024 End: 31-34-4202xupoywWYOI (Deltasone) 20 MG tablet 08/20/2024 03/20/2025 Discontinuedprenatal 115/iron/folic acid ( 19 ORAL) (7 sources) 115/iron/folic acid ( 19 ORAL) Take by mouth. Active Vit-Fe Fumarate-FA ( Vitamins) 28-0.8 MG tablet (16 sources)Start: 03-20-2025 End: 70-01-3060staa 1 tablet by mouth once dailyPrenatal Vit-Fe Fumarate-FA ( Vitamins) 28-0.8 MG tablet Indications: , unspecified gestational age ([facility]) , Encounter for supervision of normal first in first trimester([facility]) Take 1 tablet by mouth Daily 30 tablet 6 03/20/2025 03/20/2026 Activeprenatal vitamin plus iron 29-1 MG tablet 1 tablet (1 source)Start: 13-22-6692mhynitgn vitamin plus iron 29-1 MG tablet 1 tablet rivaroxaban (3 sources)Factor Xa InhibitorStart: 12-01-2021 End: 26-84-5849pxsjutmagas (XARELTO) tablet 15 mgStart: 41-91-9210nszoqtmifgp 15 & 20 MG Starter Pack Take as directed on package. 1 each 0 12/01/2021 Ahlgoj35 hr scopolamine 0.0139 mg/hr transdermal system (1 source)AnticholinergicStart: 03-27-2024 End: 16-51-1973juhut 1 dose transdermal route once dailyscopolamine (TRANSDERM- SCOP) 1 mg/3 days Indications: PONV (postoperative nausea and vomiting) Place 1 patch on the skin once for [address] behind ear night before surgery. Wash hands immediatelyafter applying. 1 patch 03/27/2024 03/27/2024 Activesertraline 100 mg oral tablet (12 sources)Serotonin Reuptake Inhibitor End: 47-05-9511vrbtvehjqr (Zoloft) 100 MG tablet 03/20/2025 Discontinued End: 03-89-4099vgie 1 tablet by mouth once dailysertraline (ZOLOFT) 50 MG tablet Take 50 mg by mouth daily 0 11/27/2021 Discontinued (Stop Taking at Discharge) syringe with needle (BD LUER-KARENA SYRINGE) 3 mL 25 x 1 1/2 syringe (10 sources)Start: 97-79-9302gfbkgri with needle (BD LUER-KARENA SYRINGE) 3 mL 25 x 1 1/2 syringe Indications: History of Bonnie-en-Y gastric bypass , Postsurgical malabsorption , Malnutrition following gastrointestinal surgery , B12 deficiency 1 SYRG by miscellaneous route every 30 (thirty) days. 3 each 1 01/02/2025 ActiveStart: 92-46-6248rhaimrm with needle (BD LUER-KARENA SYRINGE) 3 mL 25 x 1 1/2 syringe Indications: Malnutrition following gastrointestinal surgery , Postsurgical malabsorption , H/O gastric bypass 1 SYRG by miscellaneo us route every 30 (thirty) days. 3 each 06/04/2024 Activevitamin b12 1 mg/ml injectable solution (20 sources)Vitamin S44Kuyvk: 01-01-2025 End: 84-44-1082bdhezzxehnvjjr (VITAMIN B-12) injection 1,000 mcgStart: 01-01-2025 End: 31-09-0185gyghgp 1000 ug by intramuscular injection once1,000 mcg, intramuscular, Once, On Belkis 01/01/25 at 1230, For 1 doseStart: 06-04-2024 cyanocobalamin (Vitamin B-12) 1000 MCG/ML injection 07/14/2024 ActiveStart: 06-04-2024 End: 46-67-4339kfeuphdzamblwf (VITAMIN B-12) injection 1,000 mcgStart: 06-04-2024 End: 12-63-5436snqzmk 1000 ug by intramuscular injection once1,000 mcg, intramuscular, Once, On Sun06/04/24 at 1130, For 1 dose Completed/Discontinued Medications MedicationDrug Class(es)DatesSig (Normalized)Sig (Original)acetaminophen 500 mg oral tablet (5 sources)Start: 04-23-2024 End: 38-77-8013vhup 1000 mg by mouth once1,000 mg, oral, Once, On Sun04/23/24 at 0800, For 1 dose, Pre-opStart: 70-17-5511zqachvpiazgtp (TYLENOL) tablet 650 mg Start: 11-25-2021 End: 34-09-3843hmyfpvmrmbzfm (TYLENOL) tablet 1,000 mgtake 3 tablets by mouth every eight hours as needed for painacetaminophen (TYLENOL EXTRA STRENGTH) 500 mg tablet Indications: pain Take 3 tablets (1,500 mg total) by mouth every 8 (eight) hours as needed for pain Indications: pain. Activeacetaminophen 325 mg / HYDROcodone bitartrate 5 mg oral tablet (1 source)Opioid AgonistStart: 12-05-2021 End: 45-28-1632BZLRIsaloai-acetaminophen (NORCO) 5-325 MG per tablet 1 tablet albuterol 0.83 mg/ml inhalation solution (20 sources)beta2-Adrenergic AgonistStart: 04-23-2024 End: 58-29-6994uajq 2.5 mg by inhalation every six hours as needed for wheezing and dyspneaStart: 47-28-6806uijl 2 puff(s) by inhalation every four hours albuterol HFA 90 mcg/act inhaler Indications: Moderate persistent asthma without complication (HCC)Inhale 2 puffs every 4 (four) hours if needed for shortness of breath 18 g 3 02/01/2024 ActiveStart: 64-31-4789ctlx 2 puff(s) by inhalation every four hours as needed for wheezingalbuterol (PROVENTIL HFA;VENTOLIN HFA) 90 mcg/actuation inhaler Indications: Mild intermittent asthma, unspecified whether complicated Inhale 2 puffs every 4 (four) hours as needed for wheezing. 18 07/28/2022 Activeapixaban 5 mg oral tablet (1 source)Factor Xa InhibitorStart: 12-01-2021 End: 31-77-7418sgvlxbxy starter pack (ELIQUIS DVT/PE STARTER PACK) 5 MG TBPK tablet Take 1 tablet by mouth See Admin Instructions 74 tablet 0 12/01/2021 12/01/2021 Discontinued (Stop Taking at Discharge)aprepitant 40 mg oral capsule (1 source)Substance P/Neurokinin-1 Receptor AntagonistStart: 04-23-2024 End: 50-71-2655fmsj 40 mg by mouth once40 mg, oral, Once, On Sun04/23/24 at 0800, For 1 dose, Pre-opcalcium chloride 0.0014 meq/ml / potassium chloride 0.004 meq/ml / sodium chloride 0.103 meq/ml / sodium lactate 0.028 meq/ml injectable solution (4 sources)Start: 04-23-2024 End: 56-53-5929cyur 100 mL intravenously every aesj596 mL/hr, intravenous, Continuous, Starting on Sun04/23/24 at 1415Start: 11-26-2021 End: 51-62-8226NavskXROrvh, at 125 mL/hr, CONTINUOUS, Starting on Sun11/26/21 at 0645Start: 11-26-2021 End: 43-65-2592kzdtcpgk ringers infusioncyclobenzaprine hydrochloride 10 mg oral tablet (10 sources)Muscle RelaxantStart: 12-15-2024 End: 97-21-0649gsfm 1 tablet by mouth twice daily as needed for muscle spasms cyclobenzaprine (FLEXERIL) 10 mg tablet Take 1 tablet (10 mg total) by mouth 2 (two) times a day asneeded for muscle spasms. 10 tablet 12/15/2024 01/01/2025 DiscontinuedStart: 04-24-2024 End: 76-26-4599teyk 1 tablet by mouth three times daily as needed for muscle spasmscyclobenzaprine (FLEXERIL) 10 mg tablet Take 1 tablet (10 mg total) by mouth 3 (three) times a day as needed for muscle spasms. 20 tablet 04/24/2024 01/01/2025 Discontinueddocusate sodium 100 mg oral capsule (16 sources)Start: 03-27-2024 End: 21-73-5213vmvc 1 capsule by mouth in the morning, then take 1 capsule by mouth every week at bedtimedocusate sodium (COLACE) 100 mg capsule Indications: Constipation, unspecified constipation type Take 1 capsule (100 mg total) by mouth in the morning and 1 capsule (100 mg total) before bedtime. Start one week prior to surgery and continue two weeks after surgery.. 42 capsule 04/17/2024 01/01/20258658Rvqmpawjpufr4 ml fentaNYL 0.05 mg/ml injection (1 source)Opioid AgonistStart: 04-23-2024 End: mcg, intravenous, Every 5 min PRN, Pain Scale 6-10, Starting on Sun04/23/24 at 1058, PACU (only), Up to a maximum dose of 150 mcg. Look-alike/sound-alike medication - verify indication for use.glucagon (rdna) 1 mg injection (1 source)Antihypoglycemic AgentStart: 04-23-2024 End: 16-25-7424355 ml glucose 50 mg/ml injection (3 sources)Start: 04-23-2024 End: 72-09-9007Hmsyv: 04-23-2024 End: 53-81-3020Nbpzx: 04-23-2024 End: ml heparin sodium, porcine 5000 unt/ml injection (4 sources)Unfractionated Heparin, Anti-coagulantStart: 04-23-2024 End: 15-41-8318jkxjbl 5000 [IU] by subcutaneous injection once5,000 Units, subcutaneous, Once, On Sun04/23/24 at 0845, For 1 dose, Look-alike/sound-alike medication - verify indication for use. Observe for bleeding.Start: 11-30-2021 End: 80-94-7392mkxgysn (porcine) injection 10,000 UnitsStart: 11-30-2021 End: -30 [...] mg/ml injection (6 sources)Arteriolar VasodilatorStart: 11-28-2021 End: 31-57-1695wcrrRYIYMXG (APRESOLINE) injection 10 mgStart: 11-28-2021 End: 17-29-1256ogrpMUPPPMB (APRESOLINE) injection 10 mgStart: 11-28-2021 End: 73-03-4789zhrsJBBXPQZ (APRESOLINE) injection 10 mgStart: 11-27-2021 End: 75-88-0227ljnsYSURHFS (APRESOLINE) injection 10 mgStart: 11-27-2021 End: 76-93-5363pmmdXOYYWFB (APRESOLINE) 20 MG/ML injectionStart: 11-25-2021 End: 15-95-5762yygkMVZOQQB (APRESOLINE) injection 10 mghyoscyamine sulfate 0.125 mg disintegrating oral tablet (1 source)Start: 04-23-2024 End: 22-60-7908hazm 125 ug under the tongue four times iycow095 mcg, sublingual, 4 times daily, First dose on Sun04/23/24 at 1200ibuprofen 800 mg oral tablet (4 sources)Nonsteroidal Anti-inflammatory DrugStart: 07-14-2023 End: 52-79-1902qihm 1 tablet by mouth every six hours as needed for pain ibuprofen (MOTRIN) 800 mg tablet Take 1 tablet (800 mg total) by mouth every 6 (six) hours as needed for pain. 30 tablet 0 07/14/2023 09/27/2023 Discontinued Start: 02-97-5241culxybqgz (ADVIL;MOTRIN) tablet 600 mgiopamidol (ISOVUE-370) 76 % injection 75 mL (1 source)Start: 11-30-2021 End: 23-24-6897wcosoocfd (ISOVUE-370) 76 % injection 75 mLiopamidol (ISOVUE-370) 76 % injection 85 mL (1 source)Start: 11-26-2021 End: 22-42-6001vrzvygogy (ISOVUE-370) 76 % injection 85 mL1 ml ketorolac tromethamine 15 mg/ml injection (2 sources)Nonsteroidal Anti-inflammatory Drug, Cyclooxygenase InhibitorStart: 04-23-2024 End: 93-15-0117fuxd 15 mg intravenously every six hours15 mg, [...] dose + 120mg/24 hours. Start: 11-26-2021 End: 98-96-3139kkjwevdae (TORADOL) injection 30 mglidocaine 0.05 mg/mg medicated patch (3 sources)Antiarrhythmic, Amide Local AnestheticStart: 07-14-2023 End: 98-02-8490tyqqv 1 dose transdermal route once daily, then apply 1 dose transdermal route every twelve hourslidocaine (LIDODERM) 5 % Place 1 patch on the skin daily. Remove & Discard patch within 12 hours or as directed by 15 patch 0 07/14/2023 09/27/2023 Discontinuedlisinopril 10 mg oral tablet (20 sources)Angiotensin Converting Enzyme InhibitorStart: 04-24-2024 End: 93-24-5457silo 10 mg by mouth once daily10 mg, oral, Daily, First dose on Sun04/24/24 at 0900, Look-alike/sound-alike medication - verify indication for use.Start: 03-04-2024 End: 19-19-4397cepz 1 tablet by mouth once dailylisinopril 20 MG tablet Indications: Gastroesophageal reflux disease without esophagitis Take 1 tablet (20 mg) by mouth Daily 100 tablet 3 03/04/2024 06/12/2024 Discontinued (Therapy completed) End: 70-28-3524jqzl 0.5 tablet by mouth in the morninglisinopriL [...] hydroxide 80 mg/ml oral suspension (1 source)Start: 07-75-3423auco 30 mL by mouth once daily as mL, Oral, DAILY PRN, Starting on Sun11/30/21 at 2358, Until Discontinued, Constipation First line therapy for constipation.osmotic 24 hr metFORMIN hydrochloride 500 mg extended release oral tablet (3 sources)Biguanide End: 73-79-0305wmcd 1 tablet by mouth once daily at breakfastmetFORMIN (FORTAMET) 500 MG (OSM) 24 hr tablet Take 1 tablet (500 mg total) by mouth daily with breakfast. 0 09/27/2023 Discontinued1 ml morphine sulfate 4 mg/ml injection (2 sources)Opioid AgonistStart: 04-23-2024 End: 52-85-8025lfzd 4 mg intravenously every two hours as neededStart: 11-30-2021 End: 38-60-0587qyroqmuz (PF) injection 2 mgnitroglycerin 0.4 mg sublingual [...] capsule (20 sources)Proton Pump InhibitorStart: 04-24-2024 End: 57-86-2560qeuc 1 capsule by mouth once daily before breakfastomeprazole (PriLOSEC) 40 mg capsule Take 1 capsule (40 mg total) by mouth every morning before breakfast. 90 capsule 04/24/2024 05/29/2025 DiscontinuedStart: 2020 End: 25-55-6139hgziiyilhx (PriLOSEC) [address] capsule Indications: Gastroesophageal reflux disease without esophagitis TAKE 1 CAPSULE BY MOUTH DAILY 30 MINUTES BEFORE MORNING MEAL 100 capsule 3 02/01/2024 Activetake 1 tablet by mouth in the morningomeprazole (PriLOSEC OTC) 20 mg EC tablet Take 1 tablet (20 mg total) by mouth in the morning. Mgqpdk11 hr orphenadrine citrate 100 mg extended release oral tablet (3 sources)Muscle RelaxantStart: 07-14-2023 End: 95-36-4093iqws 1 tablet by mouth in the morning, then take 1 tablet by mouth every twelve hours at bedtimeorphenadrine (NORFLEX) 100 mg 12 hr tablet Take 1 tablet (100 mg total) by mouth in the morning and1 tablet (100 mg total) before bedtime. 20 tablet 0 07/14/2023 09/27/2023 Discontinuedpantoprazole 40 mg delayed release oral tablet (1 source)Proton Pump InhibitorStart: 04-23-2024 End: 28-04-692364 mg, oral, Daily, First dose on Sun04/23/24 at 1500, Look-alike/sound-alike medication - verify indication for use. If patient is receiving enteral feeding, consider alternative PPI or continue IV pantoprazole until the delayed-release tablet can be taken orally, Indication: GERDprenatal vit 10-iron fum-folic 65-1 mg tablet (3 sources)Start: 02-22-2023 End: 02-35-1094tppn 1 tablet by mouth in the morningprenatal vit 10-iron fum- folic 65-1 mg tablet Indications: Morbid obesity (CMS-HCC) , Preop testingTake 1 tablet by mouth in the morning. 90 tablet 3 02/22/2023 09/27/2023 Discontinued Start: 09-43-1760iahe 1 tablet by mouth in the morningprenatal vit 10-iron fum- folic 65-1 mg tablet Indications: Morbid obesity (CMS-HCC) , Preop testingTake 1 tablet by mouth in the morning. 90 tablet 3 02/22/2023 Activeprochlorperazine 5 mg/ml injectable solution (1 source)PhenothiazineStart: 04-23-2024 End: 35-84-3846hbpn 5 mg intravenously every six hours as needed for nausea and vomiting5 ml sodium chloride 9 mg/ml injection (9 sources)Start: 88-56-8607lyjs 1 dose intravenously twice daily5-40 mL, IntraVENous, [...] Midline or Central Line = 20 mL/lumenStart: 44-02-7648oyns 25 mL intravenously every hour as mL, IntraVENous, at 100 mL/hr, PRN, If patient receiving piggyback infusions without ordered maintenance IV fluids or with frequent/long duration piggyback infusions, Starting on 11/30/21 at 2358 Administer at the same rate as the piggyback being infused.Start: 11-30-2021 take 10 mL intravenously once as iybjgj89 mL, IntraVENous, PRN, Starting on 11/30/21 at 2358, Until Discontinued, Line Care, After every IV line useStart: 11-30-2021 End: 20-32-3952nipjrd chloride flush 0.9 % injection 10 mLStart: 11-30-2021 End: .9 % sodium chloride bolusStart: 74-66-8241flbd 1 dose intravenously twice daily5-40 mL, IntraVENous, EVERY 12 HOURS SCHEDULED (2 times per day), First dose on [facility] 11/26/21 at 0900For Line Patency: Peripheral IV [...] Midline or Central Line = 20 mL/lumenStart: 69-09-6998izvm 25 mL intravenously every hour as lbdqra94 mL, IntraVENous, at 100 mL/hr, PRN, If [...] 50 mL IVPB (1 source)Start: 04-23-2024 End: 16-75-6430qpgifnvsglk, at 102 mL/hr, Administer over 30 Minutes, Once, On Sun04/23/24 at 1130, For 1 dose, PACU (only), Look-alike/sound-alike medication - verify indication for use. Problems Active Problems Problem ClassificationProblemDateDocumented DateEpisodic/ChronicAbdominal pain (3 sources)Right upper quadrant pain; Translations: [Right upper quadrant pain] Onset: 764007-66-7554LdulgvhqVcpzqavfxj disorders (20 sources)Adjustment disorder with anxious mood; Translations: [Adjustment disorder with anxiety]Onset: 969358-16-8915RmkxoaiCmnjzvt disorders (20 sources)Anxiety; Translations: [Anxiety disorder, unspecified]Onset: 893302-61-7841QdwxbadZjegul (20 sources)Mild intermittent asthma, uncomplicated; Translations: [Asthma] Onset: 124281-18-1152ObsosogRarumbl tract disease (3 sources)Calculus of gallbladder without cholecystitis without obstruction; Translations: [Gallbladder calculus with acute cholecystitis and no obstruction] Onset: 389512-58-8449VfvyhglgAmbfxrgenwoyh of surgical procedures or medical care (20 sources)Post-gastrointestinal tract surgery malnutrition; Translations: [Postsurgical malabsorption, not elsewhere classified]Onset: 12-30-2024 07-29-4149IitfvruJdeyivpzszsxl and procreative management (5 sources)Encounter for sterilization; Translations: [Encounter for removal of intrauterine contraceptive device]Onset: 23-56-9810ErvmigpbYoxlmdgxet disorders (20 sources)Gastroesophageal reflux disease; Translations: [Gastro-esophageal reflux disease without esophagitis]Onset: 525726-84-1676MmhlmfaYzrcjrfhp hypertension (20 sources)Essential hypertension; Translations: [Essential (primary) hypertension]Onset: 469796-07-6480QdzbhghTsspk of unknown origin (2 sources)Fever; Translations: [Fever, unspecified]02-63-4834Tdaunxcl Genitourinary symptoms and ill-defined conditions (3 sources)Personal history of urinary (tract) infections; Translations: [Dysuria]Onset: 976503-48-0029TsjufehgYtffwbzasrpi complicating ; childbirth and the puerperium (7 sources)Pre-eclampsia added to pre-existing hypertension; Translations: [Pre- existing hypertension with pre-eclampsia, unspecified trimester]Onset: 127728-53-5968IbcghfbGcacaqutbvbad and screening for infectious disease (5 sources)Encounter for screening for human papillomavirus (HPV); Translations: [Exposure to sexually transmissible disorder]Onset: 216979-55-9485Svapxtpg Influenza (2 sources)Influenza due to Influenza A virus; Translations: [Influenza due to other identified influenza virus with other respiratory manifestations] 90-75-7528PsfkbvgeMxofxovxy disorders (20 sources)Excessive and frequent menstruation with regular cycle; Translations: [Irregular periods]Onset: 23-93-9616MnxxonkQlrr disorders (20 sources)Depressive disorder; Translations: [Depression]Onset: 06-13-2019 ChronicNutritional deficiencies (3 sources)Vitamin D deficiency; Translations: [Vitamin D deficiency, unspecified]38-82-5454FjjlvnoBqdxe aftercare (1 source)Other fpc (current) drug therapy; Translations: [OTH STATION BAGGAGE AGENT CURRENT DRUG THERAPY]Onset: 16-46-2887OtodbxauSzdsu complications of ; puerperium affecting management of mother (1 source)Obesity complicating childbirth; Translations: [OBESITY COMPLICATING CHILDBIRTH]Onset: 56-42-9855AkvnblvXadef complications of (3 sources)Maternal obesity complicating , childbirth and the puerperium, antepartum; Translations: [Obesity complicating , unspecified trimester]31-22-1445YapokwrIhujw complications of (1 source)Obesity complicating , unspecified trimester; Translations: [Obesity complicating , unspecified trimester]Onset: 84-27-9662Vrnzmgi Other complications of (3 sources)History of pre-eclampsia; Translations: [Supervision of with other poor reproductive or obstetric history, second trimester]05-29-2025 EpisodicOther complications of (4 sources)Supervision of with other poor reproductive or obstetric history, second trimester; Translations: [ with other poor obstetric history]Onset: 339932-97-7908KbmmybmsKrkkr complications of (3 sources)History of gestational diabetes mellitus; Translations: [Supervision of with other poor reproductive or obstetric history, unspecified trimester]58-27-6430TdtmizgiVhjcc complications of (3 sources)Depressive disorder in mother complicating ; Translations: [Other mental disorders complicating , unspecified trimester]05-29-2025 EpisodicOther complications of (3 sources)Other mental disorders complicating , unspecified trimester; Translations: [Mental disorders of mother, antepartum condition or complication] Onset: 861406-60-8231JtwkmkznRnhob complications of (1 source)Bariatric surgery status complicating , second trimester; Translations: [Bariatric surgerystatus complicating , second trimester] Onset: 18-11-4925ZqipmgqaAojnc complications of (1 source)Supervision of with other poor reproductive or obstetric history, unspecified trimester; Translations: [Supervision of with other poor reproductive or obstetric history, unspecified trimester]Onset: 84-20-4565UnilqbsnOxjpj complications of (1 source)Other specified related conditions, unspecified trimester; Translations: [Other specifiedpregnancy related conditions, unspecified trimester]Onset: 95-58-2270QfcausryZjeqi endocrine disorders (20 sources)Polycystic ovary syndrome; Translations: [Polycystic ovarian syndrome]Onset: 000013-54-3934ZbfusjyFczyt female genital disorders (2 sources)Vaginal discharge; Translations: [Other specified noninflammatory disorders of vagina]92-16-3147XcbbiqkjNusyn gastrointestinal disorders (5 sources)History of bariatric surgical procedure; Translations: [Bariatric surgery status]31-95-4701NczvsmpnUifqb gastrointestinal disorders (20 sources)History of bypass of stomach; Translations: [Bariatric surgery status]Onset: 448830-31-4299YzatpqmyUxfqb hematologic conditions (2 sources)History of anemia; Translations: [Personal history of diseases of the blood and blood-forming organs and certain disorders involving the immune mechanism]83-49-3477OwwqymvbLanky lower respiratory disease (2 sources)Dyspnea; Translations: [Shortness of breath]Onset: 70-24-8363Exkrwvau Other nutritional; endocrine; and metabolic disorders (20 sources)Severe obesity; Translations: [Morbid (severe) obesity due to excess calories]Onset: 70-69-7865CkuekjzOsqrs nutritional; endocrine; and metabolic disorders (2 sources)Morbid (severe) obesity due to excess calories; Translations: [MORBID SEVERE OBES D/T EXCESS KALEY]Onset: 64-31-6237JpupchhLdmmj nutritional; endocrine; and metabolic disorders (20 sources)Body mass index 40+ - severely obese; Translations: [Morbid (severe) obesity due to excess calories]Onset: 350756-71-5795WugugebGocjl nutritional; endocrine; and metabolic disorders (8 sources)Morbid obesity; Translations: [Morbid (severe) obesity due to excess calories]15-20-9772ZbjtjibLpepf and delivery including normal (11 sources)Single live ; Translations: []Onset: 11-28-2021 25-56-4443HqjxrorqNyhwq screening for suspected conditions (not mental disorders or infectious disease) (13 sources)Encounter for screening for malignant neoplasm of cervix; Translations: [Patient encounter status]Onset: 33-02-9200NorlojsxRjcuk upper respiratory disease (20 sources)Allergic rhinitis due to pollen; Translations: [Allergic rhinitis due to pollen]Onset: 121233-21-2274RfobkqaJztkwm media and related conditions (2 sources)Acute non-suppurative otitis media - serous; Translations: [Acute serous otitis media, left ear]62-64-2426CgndeljaUzsfxdg cyst (4 sources)Unspecified ovarian cyst, right side; Translations: [UNSPECIFIED OVARIAN CYST RIGHT SIDE]Onset: 48-29-4639AccoxkumRkkwlmvf codes; unclassified (2 sources)Obstructive sleep apnea (adult) (pediatric); Translations: [Obstructive sleep apnea (adult) (pediatric)]Onset: 45-89-4118OlmiybbEucticys codes; unclassified (3 sources)Sleep apnea; Translations: [Sleep apnea, unspecified]Onset: 668731-61-6768CajmcenDuhzatvp codes; unclassified (20 sources)Obstructive sleep apnea syndrome; Translations: [Obstructive sleep apnea (adult) (pediatric)]Onset: 623865-04-3550TjedholJvtejsya codes; unclassified (2 sources)Personal history of other specified conditions; Translations: [PERSONAL HISTORY OTH SPEC CONDITION]Onset: 60-03-7750DojkpzugNldwehli codes; unclassified (2 sources)Gestation period, 14 weeks; Translations: [14 weeks gestation of ]79-76-1484XzbcnrzoGczfntat codes; unclassified (2 sources)Gestation period, 17 weeks; Translations: [17 weeks gestation of ]77-50-8291FwwycxtfCdjmyzzd codes; unclassified (4 sources)Gestation period, 20 weeks; Translations: [20 weeks gestation of ]62-37-6414XzwzspanUbtfmhzv codes; unclassified (4 sources)H/O: endocrine disorder; Translations: [Personal history of other specified conditions]69-13-8351JutybytxMknjoczn codes; unclassified (2 sources)Gestation period, 21 weeks; Translations: [21 weeks gestation of ]35-82-5765LjmocmxnDxyykahi codes; unclassified (1 source)Personal history of other complications of , childbirth and the puerperium; Translations: [Personal history of other complications of , childbirth and the puerperium]Onset: 85-06-3539YemsacauMqfygkvs codes; unclassified (1 source)20 weeks gestation of ; Translations: [20 weeks gestation of ]Onset: 33-09-1526QcogymukJprcqjxx codes; unclassified (2 sources)Gestation period, 23 weeks; Translations: [23 weeks gestation of ]37-21-1727NjmxauohJiwwghw disorders (20 sources)Thyroid nodule; Translations: [Nontoxic single thyroid nodule]Onset: 31-88-2916HicxljxLhbeqyrhsvrp (1 source)PERSONAL HISTORY OF COVID-19; Translations: [PERSONAL HISTORY OF COVID-19]Onset: 07-21-5994Eoqanppqdepg (1 source)CONTACT W/AND (SUSP) EXPOS COVID-19; Translations: [CONTACT W/AND (SUSP) EXPOS COVID-19]Onset: 51-25-3589Recassjdtkzv (20 sources)Patient on antidepressant monitoring planOnset: 329640-20-2241 Unclassified (20 sources)Baseline PHQ-9Onset: 615177-05-0882Syluxxjalgfc (1 source)Hx PEOnset: 86-68-8885Nxywmxfbpplp (1 source)InjectionOnset: 14-05-9209Vdnjvmnqirye (1 source)Abdominal pain of multiple sites; Translations: [Abdominal pain of multiple sites]Onset: 75-78-6723Kqeawykqrzfi (1 source)Low back pain, unspecified; Translations: [Low back pain, unspecified] Onset: 12-15-2024 Past or Other Problems Problem ClassificationProblemDateDocumented DateEpisodic/Chronic Administrative/social admission (9 sources)Patient encounter status; Translations: [Dietary counseling and surveillance]60-69-6286VlalxhjaFedkxnlbum and other anemia (20 sources)Anemia; Translations: [Anemia, unspecified]Onset: 77-13-2971Yhchhkis Deficiency and other anemia (20 sources)Iron deficiency anemia; Translations: [Iron deficiency anemia, unspecified]Onset: 633613-19-7630IfhzzlqvKjkmperx or abnormal glucose tolerance complicating ; childbirth; or the puerperium (20 sources)Gestational diabetes mellitus; Translations: [Gestational diabetes mellitus in , unspecified control]Onset: 12-09-2018 Resolved: 36-91-1049XqkrevklGwvdmwlj; including migraine (20 sources)Frequent headache; Translations: [Frequent headaches]Onset: 562496-57-4758YfoepmiyLyrhsnvrojva complicating ; childbirth and the puerperium (20 sources) pre-eclampsia; Translations: [Unspecified pre-eclampsia, complicating the puerperium]Onset: 11-23-2018 Resolved: 25-47-5480AkltmscmZpai disorders (20 sources)Mood disorders; Translations: [Depression, unspecified]Onset: 12-24-2018 Resolved: Nausea and vomiting (20 sources)Nausea and vomiting; Translations: [Nausea with vomiting, unspecified]Onset: 415840-50-7637HxpscnkcSotqbzouzgj deficiencies (5 sources)Cobalamin deficiency; Translations: [Deficiency of other specified B group vitamins]Onset: 313579-77-3726ZyxtzqhiDfkmq endocrine disorders (20 sources)Disorder of endocrine system; Translations: [Endocrine disorder, unspecified]Onset: 725851-01-5448AeyqwoixOydsn gastrointestinal disorders (2 sources)Constipation; Translations: [Constipation, unspecified]2024 EpisodicOther gastrointestinal disorders (2 sources)Bariatric surgery status; Translations: [Bariatric surgery status] Onset: 87-81-9456EyhtaipdFkphh hematologic conditions (2 sources)Personal history of diseases of the blood and blood-forming organs and certain disorders involving the immune mechanism; Translations: [Personal history of diseases of the blood and blood-forming organs and certain disorders involving the immune mechanism]Onset: 67-61-8707MmeiqjeuNgqzz nervous system disorders (1 source)Acute postoperative pain; Translations: [Other acute postprocedural pain]23-28-7161SqdzerqiZyejaznlh (except that caused by tuberculosis or sexually transmitted disease) (20 sources)Pneumonia; Translations: [Pneumonia, unspecified organism]Onset: 07-30-2022 Resolved: 494830-06-1054QrfijmyoYbswnuvjk heart disease (20 sources)Acute pulmonary embolism; Translations: [Other pulmonary embolism without acute cor pulmonale]Onset: 22-27-1125TqqvwwruLkvpdslz codes; unclassified (20 sources)FH: Diabetes in ; Translations: [Family history of diabetes mellitus]Onset: 69-30-1991NskrtkjgTybchxcu codes; unclassified (1 source)39 weeks gestation of ; Translations: [39 WEEKS GESTATION OF ]Onset: 51-67-9532UgqcqvbbRwaejhmq codes; unclassified (1 source)38 weeks gestation of ; Translations: [38 WEEKS GESTATION OF ]Onset: 89-53-1489UkqlstifCewjwckr codes; unclassified (20 sources)Amnesia; Translations: [Other amnesia]Onset: 582600-68-5830 EpisodicResidual codes; unclassified (20 sources)FH: Thrombosis; Translations: [Family history of ischemic heart disease and other diseases of the circulatory system]Onset: 429325-31-3400 EpisodicResidual codes; unclassified (1 source)Procedure not done; Translations: [Procedure and treatment not carried out, unspecified reason]05-76-0909ZpmweeegWhqgbffmcks; intervertebral disc disorders; other back problems (2 sources)BackacheOnset: 75-47-7566HgwiswacOpyilpvjkemh (1 source)History of gestational diabetes in prior , currently in second yttxnwowg92-20-5393Lnctcafprlms (1 source)Anxiety disorder affecting , gttbmeurpp40-16-1069Ghgyotp tract infections (20 sources)Urinary tract infectious disease; Translations: [Urinary tract infection, site not specified]Onset: 148903-82-5796Ksvetkan Results Test NameValueInterpretationReference RangeFacilityTBH UA (CLEAN/CATCH) DECATING MACHINE OPERATOR/MICRO IF IND.on 10-36-6140VGKALYUMS URINENegativeNEGATIVENOMS Healthcare BLOOD URINENegativeNEGATIVENOOH HealthcareClarity (U)CLEARCLEARNOMS Healthcare Color (U)YELLOWYELLOWNOMS HealthcareGLUCOSE URINE UANegativeNEGATIVE mg/dLNOOH HealthcareInterpretation and review of laboratory resultsAbnormalNOOH Healthcare Ketones Ql (U)TRACEAbnormalNEGATIVE mg/dLNOOH HealthcareLeukocyte esterase Test strip Ql (U)NegativeNEGATIVENOMS HealthcareNITRITE URINENegativeNEGATIVENOOH HealthcarepH (U)6.0 [pH]5.0 - 9.0NOMS HealthcarePROTEIN URINENegativeNEG/TRACE mg/dLNOOH HealthcareSPECIFIC GRAVITY URINE1.0201.005 - 1.025NOOH HealthcareURINE MICROSCOPIC INDICATEDNONOMS HealthcareUROBILINOGEN URINE2.0 EU/dLAbnormal0.2 - 1.0 EU/dLNOOH HealthcareCLINISYNCNOMS HealthcareMLR HEMOGLOBIN A1Con 07-01-2025 Glucose [Mass/Vol]91 mg/dLNOOH KjxkpixawpSnJ1w (Bld) [Mass fraction]4.8 %4.5 - 6.2 %NOMS HealthcareComment on above:ADA RECOMMENDED LIMIT 4.0 - 6.0 ADA THERAPEUTIC TARGET < 7.0 ACTION SUGGESTED > 7.0 CLINISYNCNOMS HealthcareCBC WITH AUTO DIFFERENTIALon 70-96-1497YODHCEPZE ABSOLUTE COUNT (10*3/UL) BY AUTOMATED COUNT0.0 10*3/uLNormal0.0-0.2Pro[facility] Children’S HospitalComment on above:Performed By: #### CBCA, FEPR, LIVR, 2276-4, 2132-9, 2284-8, 21845-8 #### [facility] ([id number]) [address], [address] [place] [address] #### 99511-3 #### [facility] ([id number]) [address] [place] [address] 75107BLRNDZILU RELATIVE PERCENT BY AUTOMATED COUNT0.4 %Normal [facility] CenterComment on above:Performed By: #### CBCA, FEPR, LIVR, 6-4, 2131-9, 4-8, 85127-6 #### [facility] ([id number]) [address], [address] [place] [address] #### 25975-3 #### [facility] ([id number]) [address] [place] [address] 19217QERHBAHPKWY DIFFERENTIAL TYPEAUTOMATED DIFFERENTIALNormal [facility] CenterComment on above:Performed By: #### CBCA, FEPR, LIVR, 6-4, 9, 8, 95952-6 #### [facility] ([id number]) [address], [address] [place] [address] #### 79316-5 #### [facility] ([id number]) [address] [place] [address] 61989Mlhvsntsyqh (Bld) [#/Vol]0.1 10*3/uLNormal0.0-0.4Pro[facility] Children’S HospitalComment on above:Performed By: #### CBCA, FEPR, LIVR, 6-4, 2131-9, 4-8, 45581-6 #### [facility] ([id number]) [address], [address] [place] [address] #### 04927-3 #### [facility] ([id number]) [address] [place] [address] 83716OIOVDIPPDBP RELATIVE PERCENT BY AUTOMATED COUNT1.1 %Normal [facility] CenterComment on above:Performed By: #### CBCA, FEPR, LIVR, 6-4, 9, 8, 44443-9 #### [facility] ([id number]) [address], [address] [place] [address] #### 87635-2 #### [facility] ([id number]) [address] [place] [address] 11162Vkwcfllozry distribution width (RBC) [Ratio]13.0 %Toijgp71.5-15 [facility]’S HospitalComment on above:Performed By: #### CBCA, FEPR, LIVR, 2275-4, 2132-05, 2284-04, 32669-3 #### [facility] ([id number]) [address], [address] [place] [address] #### 78150-7 #### [facility] ([id number]) [address] [place] [address] 14979Nlsmbiilcc (Bld) [Volume fraction]29.9 %Gqr16-31RnrFrhdxi Valley Children’S HospitalComment on above:Performed By: #### CBCA, FEPR, LIVR, 2275-4, 2132-05, 2284-04, 71248-7 #### [facility] ([id number]) [address], [address] [place] [address] #### 63124-9 #### [facility] ([id number]) [address] [place] [address] 89780Kdvvlphpyo (Bld) [Mass/Vol]10.6 g/dLLow11.7-15.5Pro[facility] Children’S HospitalComment on above:Performed By: #### CBCA, FEPR, LIVR, 6-4, 9, 2284-04, 58665-0 #### [facility] ([id number]) [address], [address] [place] [address] #### 08146-6 #### [facility] ([id number]) [address] [place] [address] 87109EYSJZXOSYNV ABSOLUTE COUNT (10*3/UL) BY AUTOMATED COUNT2.4 10*3/uLNormal1.0-3.5[facility]’S HospitalComment on above:Performed By: #### CBCA, FEPR, LIVR, 2276-4, 2-9, 2284-8, 46375-4 #### [facility] ([id number]) [address] [place] [address] #### 79343-4 #### [facility] ([id number]) [address] [place] [address] 45857TDFHAWGFWND RELATIVE PERCENT BY AUTOMATED COUNT24.9 %Normal [facility]’S HospitalComment on above:Performed By: #### CBCA, FEPR, LIVR, 6-4, 2131-9, 4-8, 08862-4 #### [facility] ([id number]) [address], [address] [place] [address] #### 48620-0 #### [facility] ([id number]) [address] [place] [address] 71842ERN (RBC) [Entitic mass]31.3 yeManeks31-48XwlKpvavhThe University [facility] Health Clear Lake CampusComment on above:Performed By: #### CBCA, FEPR, LIVR, 2276-4, 2131-9, 4-8, 15290-6 #### [facility] ([id number]) [address], [address] [place] [address] #### 49298-6 #### [facility] ([id number]) [address] [place] [address] [id number] (RBC) [Mass/Vol]35.3 g/iCSarufj74-23HxxGyyaffThe University Of [facility] Medical Branch Health Clear Lake CampusComment on above:Performed By: #### CBCA, FEPR, LIVR, 6-4, 2131-9, 2283-8, 59975-8 #### [facility] ([id number]) [address], [address] [place] [address] #### 27618-3 #### [facility] ([id number]) [address] [place] [address] [id number] (RBC) [Entitic vol]88 bXFdmkxg61-017RmfClfzoq [facility] HospitalComment on above:Performed By: #### CBCA, FEPR, LIVR, 6-4, 9, 8, 54315-6 #### [facility] ([id number]) [address], [address] [place] [address] #### 07800-0 #### [facility] ([id number]) [address] [place] [address] [id number] ABSOLUTE COUNT (10*3/UL) BY AUTOMATED COUNT0.4 10*3/uLNormal0.0-0.9[facility] CenterComveterans affairs medical center on above:Performed By: #### CBCA, FEPR, LIVR, 6-4, 2131-9, 2283-8, 86139-7 #### [facility] ([id number]) [address], [address] [place] [address] #### 00714-6 #### [facility] ([id number]) [address] [place] [address] [id number] RELATIVE PERCENT BY AUTOMATED COUNT4.0 %Normal ProMLos Angeles County High Desert HospitalComveterans affairs medical center on above:Performed By: #### CBCA, FEPR, LIVR, 6-4, 2131-9, 4-8, 33571-5 #### [facility] ([id number]) [address] [facility], [address] [place] [address] #### 79150-4 #### [facility] ([id number]) [address] [place] [address] [id number] ABSOLUTE COUNT BY AUTOMATED COUNT6.8 10*3/uLHigh 1.5-6.6[facility] CenterComveterans affairs medical center on above:Performed By: #### CBCA, FEPR, LIVR, 6-4, 2131-9, 4-8, 39162-9 #### [facility] ([id number]) [address] [facility], [address] [place] [address] #### 85265-5 #### [facility] ([id number]) [address] [place] [address] [id number] RELATIVE PERCENT BY AUTOMATED COUNT69.6 %Normal [facility] Medical CenterComment on above:Performed By: #### CBCA, FEPR, LIVR, 6-4, 9, 8, 09621-6 #### [facility] ([id number]) [address] [facility] [facility], [address] [place] [address] #### 84475-3 #### [facility] ([id number]) [address] [place] [address] 35056Iydtdpab mean volume (Bld) [Entitic vol]7.8 fLNormal7-12 [facility] CenterComment on above:Performed By: #### CBCA, FEPR, LIVR, 6-4, 9, 4-8, 25183-1 #### [facility] ([id number]) [address], [address] [place] [address] #### 63201-7 #### [facility] ([id number]) [address] [place] [address] [id number] (Bld) [#/Vol]244 10*3/iDIptzkq332-462SksLlssig [facility]remont HospitalComment on above:Performed By: #### CBCA, FEPR, LIVR, 2276-4, 2131-9, 4-8, 95354-5 #### [facility] ([id number]) [address], [address] [place] [address] #### 41802-6 #### [facility] ([id number]) [address] [place] [address] [id number] COUNT3.38 X10E12/LLow3.8-5.2P[facility] Comment on above:Performed By: #### CBCA, FEPR, LIVR, 6-4, 9, 2284-04, 41828-9 #### [facility] ([id number]) [address] [facility] [facility], [address] [place] [address] #### 68297-6 #### [facility] ([id number]) [address] [place] [address] [id number] (Bld) [#/Vol]9.7 10*3/uLNormal4-11[facility] Medical CenterComment on above:Performed By: #### CBCA, FEPR, LIVR, 6-4, 9, 2283-8, 54645-1 #### [facility] ([id number]) [address] [facility], [address] [place] [address] #### 43073-8 #### [facility] ([id number]) [address] [place] [address] [id number] METABOLIC PANELon 64-48-1069Vgvqhpf [Mass/Vol]3.1 g/dLLow3.2-5.3PWilson Memorial HospitalComment on above:Performed By: #### CBCA, FEPR, LIVR, 2276-4, 2131-9, 4-8, 36295-1 #### [facility] ([id number]) [address] [facility], [address] [place] [address] #### 18938-5 #### [facility] ([id number]) [address] [place] [address] [id number] [Catalytic activity/Vol]62 U/QKshxkf31-946ElsVwpyfpThe University Of Texas Medical Branch Health Clear Lake CampusComment on above:Performed By: #### CBCA, FEPR, LIVR, 2276-4, 2131-9, 4-8, 43237-6 #### [facility] ([id number]) [address] [facility], [address] [place] [address] #### 31153-4 #### [facility] ([id number]) [address] [place] [address] [id number] [Catalytic activity/Vol]16 U/LNormal<=31ProMedica Valley Children’S HospitalComment on above:Performed By: #### CBCA, FEPR, LIVR, 6-4, 2131-9, 4-8, 37205-3 #### [facility] ([id number]) [address] [facility], [address] [place] [address] #### 39010-9 #### [facility] ([id number]) [address] [place] [address] [id number] gap [Moles/Vol]8 mmol/LNormal5-15ProThe University Of [facility] Branch Health Clear Lake CampusComment on above:Performed By: #### CBCA, FEPR, LIVR, 2276-4, 2131-9, 4-8, 66614-5 #### [facility] ([id number]) [address] [facility], [address] [place] [address] #### 92600-8 #### [facility] ([id number]) [address] [place] [address] [id number] [Catalytic activity/Vol]11 U/LNormal<=41ProThe University Of [facility] Branch Health Clear Lake CampusComment on above:Performed By: #### CBCA, FEPR, LIVR, 6-4, 9, 2283-8, 35867-0 #### [facility] ([id number]) [address] [facility], [address] [place] [address] #### 52431-8 #### [facility] ([id number]) [address] [place] [address] 04818Uzzorbset [Mass/Vol]0.5 mg/dLNormal0.3-1.2ProMedHollywood Community Hospital of Van NuysComment on above:Performed By: #### CBCA, FEPR, LIVR, 2275-4, 2132-05, 2284-04, 86115-0 #### [facility] ([id number]) [address] [place] [address], [address] [place] [address] #### 14481-8 #### [facility] ([id number]) [address] [place] [address] 42517Lldggde [Mass/Vol]8.7 mg/dLNormal8.5-10.5PWilson Memorial HospitalComment on above:Performed By: #### CBCA, FEPR, LIVR, 2275-4, 2132-05, 2284-04, 29779-1 #### [facility] ([id number]) [address] [place] [address], [address] [place] [address] #### 70444-4 #### [facility] ([id number]) [address] [place] [address] 07467Vhgzquea [Moles/Vol]108 mmol/OCjowww37-267PpsQiiiva Valley Children’S HospitalComment on above:Performed By: #### CBCA, FEPR, LIVR, 6-4, 9, 8, 83187-5 #### [facility] ([id number]) [address] [place] [address], [address] [place] [address] #### 41584-4 #### [facility] ([id number]) [address] [place] [address] [id number] [Moles/Vol]20 mmol/QShf31-53GauLuxdhsWilson Memorial Hospital Comment on above:Performed By: #### CBCA, FEPR, LIVR, 2276-4, 2132-9, 2284-8, 35152-3 #### [facility] ([id number]) [address], [address] [place] [address] #### 44535-0 #### [facility] ([id number]) [address] [place] [address] 03709Xdbihjxswc [Mass/Vol]0.44 mg/dLNormal0.40-1.00[facility] Medical CenterComment on above:Result Comment: METHOD TRACEABLE TO IDMS STANDARD Performed By: #### CBCA, FEPR, LIVR, 6-4, 2131-9, 4-8, 09419-5 #### [facility] ([id number]) [address] [facility], [address] [place] [address] #### 21433-9 #### [facility] ([id number]) [address] [place] [address] [id number] (CKD-EPI) NON-RACE DEPENDENT>^90Normal>=60Tr[facility] Regional Medical CenterComment on above:Result Comment: eGFR not reported due to non- numeric value for Creatinine. Reported eGFR is based on the CKD-EPI 2021 equation that does not use a race coefficient.Performed By: #### CBCA, FEPR, LIVR, 2276-4, 2-9, 2284-8, 49318-1 #### [facility] ([id number]) [address], [address] [place] [address] #### 34376-3 #### [facility] ([id number]) [address] [place] [address] 43269Ndpczdg [Mass/Vol]97 mg/hZFpnjhm42-53WpnVjbtzfTrumbull Regional Medical Center Comment on above:Performed By: #### CBCA, FEPR, LIVR, 2275-12, 2132-05, 2284-04, 44872-4 #### [facility] ([id number]) [address], [address] [place] [address] #### 25272-9 #### [facility] ([id number]) [address] [place], [place] [address]Umthbpmta [Moles/Vol]3.9 mmol/LNormal3.5-5.0ProThe University Of Texas [facility] Branch Health Clear Lake CampusComment on above:Performed By: #### CBCA, FEPR, LIVR, 2275-12, 2132-05, 2284-04, 32208-9 #### [facility] ([id number]) [address], [address] [place] [address] #### 59213-2 #### [facility] ([id number]) [address] [place] [address] [id number] [Mass/Vol]6.3 g/dLNormal6.0-8.0ProThe University Of [facility] Branch Health Clear Lake CampusComment on above:Performed By: #### CBCA, FEPR, LIVR, 2275-12, 2132-05, 2284-04, 95601-5 #### [facility] ([id number]) [address], [address] [place] [address] #### 49186-1 #### [facility] ([id number]) [address] [place] [address] 36580Dmelxk [Moles/Vol]136 mmol/ODmsjce613-947CotRhkcgv [facility] HospitalComment on above:Performed By: #### CBCA, FEPR, LIVR, 2275-12, 2132-05, 2284-04, 71324-6 #### [facility] ([id number]) [address], [address] [place] [address] #### 56881-0 #### [facility] ([id number]) [address] [facility], [place], [place] [address]Aull nitrogen [Mass/Vol]9 mg/dLNormal5-23[facility] Medical CenterComment on above:Performed By: #### CBCA, FEPR, LIVR, 2276-4, 2132-9, 2284-8, 22713-8 #### [facility] ([id number]) [address] [facility], [address] [place] [address] #### 87982-0 #### [facility] ([id number]) [address] [facility], [place], [place] [address]UL CTA CHESTon 69-63-3148IS CTA CHESTCT CTA CHEST Clinical History: History [...] by Jovanni Gallegos MD on 06/23/2025 8:49 AMNormalProThe University Of [facility] Medical Branch Health Clear Lake CampusLIPASEon 82-86-3549Sloqww [Catalytic activity/Vol]25 U/KEygnpp07-30 [facility] Medical CenterComment on above:Performed By: #### CBCA, FEPR, LIVR, 2276-4, 2131-9, 4-8, 96019-8 #### [facility] ([id number]) [address], [address] [place] [address] #### 89781-1 #### [facility] ([id number]) [address] [place] [address] 35186NHNPNCAZTYmi 15-01-5349Fdympivzh Ql (U)NegativeNormalNegative [facility] Medical CenterComment on above:Performed By: #### CBCA, FEPR, LIVR, 6-4, 2131-9, 2283-8, 80959-3 #### [facility] ([id number]) [address] [facility], [address] [place] [address] #### 60203-9 #### [facility] ([id number]) [address] [place] [address] 27054BLRJZ/HGBNegativeNormalNegSalem Regional Medical Center Comment on above:Performed By: #### CBCA, FEPR, LIVR, 6-4, 2131-9, 2283-8, 58335-8 #### [facility] ([id number]) [address], [address] [place] [address] #### 24076-5 #### [facility] ([id number]) [address] [place] [address] 17181Mnnvm (U)YellowNormalYellowTrumbull Regional Medical CenterComment on above:Performed By: #### CBCA, FEPR, LIVR, 6-4, 2131-9, 4-8, 87216-6 #### [facility] ([id number]) [address], [address] [place] [address] #### 83584-9 #### [facility] ([id number]) [address] [place] [address] 15262Umchrxm Ql (U)NegativeNormalNegative, 250 mg/dLProThe University Of [facility] Health Clear [facility] CampusComment on above:Performed By: #### CBCA, FEPR, LIVR, 2275-4, 9, 8, 27019-1 #### [facility] ([id number]) [address], [address] [place] [address] #### 54198-7 #### [facility] ([id number]) [address] [place] [address] 16085Vzgevqn Ql (U)NegativeNormalNegSalem Regional Medical Center Comment on above:Performed By: #### CBCA, FEPR, LIVR, 2275-12, 2132-05, 2284-04, 21223-8 #### [facility] ([id number]) [address], [address] [place] [address] #### 42518-8 #### [facility] ([id number]) [address] [place] [address] 59257Otvgpfezp esterase Test strip Ql (U)NegativeNormalNegative [facility]’S HospitalComment on above:Performed By: #### CBCA, FEPR, LIVR, 2275-4, 2132-05, 2284-04, 57643-9 #### [facility] ([id number]) [address], [address] [place] [address] #### 71313-9 #### [facility] ([id number]) [address] [place] [address] 56560Bbpsrib Ql (U)NegativeNormalNegSalem Regional Medical Center Comment on above:Performed By: #### CBCA, FEPR, LIVR, 2276-4, 2132-05, 4-8, 92948-2 #### [facility] ([id number]) [address] [facility], [address] [place] [address] #### 44446-3 #### [facility] ([id number]) [address] [place] [address] 20400XZ,URINE6.5Wbwgek5.0-8.5ProMed[facility] Valley Children’S HospitalComment on above:Performed By: #### CBCA, FEPR, LIVR, 6-4, 9, 4-8, 31970-7 #### [facility] ([id number]) [address] [facility], [address] [place] [address] #### 04749-1 #### [facility] ([id number]) [address] [place] [address] 21763Uggdikk Ql (U)NegativeNormalNegativeProMedica Valley Children’S Hospital Comment on above:Performed By: #### CBCA, FEPR, LIVR, 6-4, 9, 2283-8, 99312-6 #### [facility] ([id number]) [address] [facility], [address] [place] [address] #### 21641-9 #### [facility] ([id number]) [address] [place] [address] 43147Lrxkmwge gravity (U) [Rel density]1.831Liaoay6.003-1.035 [facility] Children’S HospitalComment on above:Performed By: #### CBCA, FEPR, LIVR, 6-4, 9, 2283-8, 71568-4 #### [facility] ([id number]) [address] [facility], [address] [place] [address] #### 93696-7 #### [facility] ([id number]) [address] [place] [address] [id number]lYokYzftwc [facility] HospitalComment on above:Performed By: #### CBCA, FEPR, LIVR, 2275-12, 2132-05, 2284-04, 83122-6 #### [facility] ([id number]) [address] [facility], [address] [place] [address] #### 07182-6 #### [facility] ([id number]) [address] [place] [address] [id number] eu/dLNormal0.2 eu/dL, 1.0 eu/dLTrumbull Regional Medical CenterComment on above:Performed By: #### CBCA, FEPR, LIVR, 2275-12, 2132-05, 2284-04, 49125-0 #### [facility] ([id number]) [address] [facility], [address] [place] [address] #### 77939-6 #### [facility] ([id number]) [address] [place] [address] 43771TZS WITH AUTO DIFFERENTIALon 52-75-0745JPWSKWSVO ABSOLUTE COUNT (10*3/UL) BY AUTOMATED COUNT0.1 10*3/uLNormal0.0-0.2P[facility] Comment on above:Performed By: #### CBCA, FEPR, LIVR, 2275-12, 2132-05, 2284-04, 65517-9 #### [facility] ([id number]) [address] [facility], [address] [place] [address] #### 67198-3 #### [facility] ([id number]) [address] [place] [address] [id number] RELATIVE PERCENT BY AUTOMATED COUNT1.3 %Normal [facility]’S HospitalComment on above:Performed By: #### CBCA, FEPR, LIVR, 2275-12, 2132-05, 2284-04, 59054-5 #### [facility] ([id number]) [address], [address] [place] [address] #### 31823-3 #### [facility] ([id number]) [address] [place] [address] 36012UUORIHNJCKR DIFFERENTIAL TYPEAUTOMATED DIFFERENTIALNormal ProMLos Angeles County High Desert HospitalComment on above:Performed By: #### CBCA, FEPR, LIVR, 6-4, 2132-05, 2284-04, 12587-4 #### [facility] ([id number]) [address], [address] [place] [address] #### 01131-2 #### [facility] ([id number]) [address] [place] [address] 42788Ogfbqdwglod (Bld) [#/Vol]0.1 10*3/uLNormal0.0-0.4ProMedica Valley Children’S HospitalComment on above:Performed By: #### CBCA, FEPR, LIVR, 2275-4, 2132-05, 2284-04, 99582-4 #### [facility] ([id number]) [address], [address] [place] [address] #### 75654-7 #### [facility] ([id number]) [address] [place] [address] [id number] RELATIVE PERCENT BY AUTOMATED COUNT1.3 %Normal [facility] CenterComment on above:Performed By: #### CBCA, FEPR, LIVR, 2275-4, 2132-05, 2284-04, 62153-6 #### [facility] ([id number]) [address], [address] [place] [address] #### 65712-3 #### [facility] ([id number]) [address] [place] [address] 21512Rodkcmxejrj distribution width (RBC) [Ratio]13.4 %Wzyzec08.5-15 [facility]’S HospitalComment on above:Performed By: #### CBCA, FEPR, LIVR, 2275-12, 2132-05, 8, 01823-8 #### [facility] ([id number]) [address], [address] [place] [address] #### 70961-1 #### [facility] ([id number]) [address] [place] [address] 14332Mducgvghyr (Bld) [Volume fraction]32.5 %End99-32DsrVdaucu Valley Children’S HospitalComment on above:Performed By: #### CBCA, FEPR, LIVR, 2275-12, 2132-05, 2284-04, 63167-0 #### [facility] ([id number]) [address], [address] [place] [address] #### 41419-1 #### [facility] ([id number]) [address] [place] [address] [id number] (Bld) [Mass/Vol]11.4 g/dLLow11.7-15.5PWilson Memorial HospitalComment on above:Performed By: #### CBCA, FEPR, LIVR, 2275-12, 2132-05, 2284-04, 14322-7 #### [facility] ([id number]) [address], [address] [place] [address] #### 82886-1 #### [facility] ([id number]) [address] [place] [address] [id number] ABSOLUTE COUNT (10*3/UL) BY AUTOMATED COUNT3.1 10*3/uLNormal1.0-3.5PWilson Memorial HospitalComment on above:Performed By: #### CBCA, FEPR, LIVR, 2275-12, 9, 2283-8, 23408-5 #### [facility] ([id number]) [address], [address] [place] [address] #### 73595-3 #### [facility] ([id number]) [address] [place] [address] [id number] RELATIVE PERCENT BY AUTOMATED COUNT27.4 %Normal [facility]’S HospitalComment on above:Performed By: #### CBCA, FEPR, LIVR, 6-4, 9, 2283-8, 69035-0 #### [facility] ([id number]) [address], [address] [place] [address] #### 57885-5 #### [facility] ([id number]) [address] [place] [address] [id number] (RBC) [Entitic mass]30.8 ljVjxwhg86-02FydEuxbamThe University Of [facility] Medical Branch Health Clear Lake CampusComment on above:Performed By: #### CBCA, FEPR, LIVR, 2275-4, 2132-05, 2284-04, 39131-8 #### [facility] ([id number]) [address], [address] [place] [address] #### 87649-9 #### [facility] ([id number]) [address] [place] [address] [id number] (RBC) [Mass/Vol]35.0 g/pRNdbkve83-89JdhUjpuolThe University [facility] Health [facility] CampusComment on above:Performed By: #### CBCA, FEPR, LIVR, 6-4, 2132-05, 2284-04, 84867-8 #### [facility] ([id number]) [address], [address] [place] [address] #### 23485-3 #### [facility] ([id number]) [address] [place] [address] [id number] (RBC) [Entitic vol]88 mQAfjdhz88-662BfwQbbacm [facility]rem[facility] HospitalComment on above:Performed By: #### CBCA, FEPR, LIVR, 2275-12, 2132-05, 8, 84272-9 #### [facility] ([id number]) [address], [address] [place] [address] #### 79572-2 #### [facility] ([id number]) [address] [place] [address] [id number] ABSOLUTE COUNT (10*3/UL) BY AUTOMATED COUNT0.5 10*3/uLNormal0.0-0.9ProThe [facility] Health [facility] CampusComment on above:Performed By: #### CBCA, FEPR, LIVR, 2275-12, 2132-05, 2284-04, 33540-6 #### [facility] ([id number]) [address], [address] [place] [address] #### 93902-3 #### [facility] ([id number]) [address] [place] [address] [id number] RELATIVE PERCENT BY AUTOMATED COUNT4.5 %Normal ProMLos Angeles County High Desert HospitalComment on above:Performed By: #### CBCA, FEPR, LIVR, 2275-12, 2132-05, 2284-04, 66927-2 #### [facility] ([id number]) [address] [address], [address] [place] [address] #### 84252-2 #### [facility] ([id number]) [address] [place] [address] [id number] ABSOLUTE COUNT BY AUTOMATED COUNT7.4 10*3/uLHigh 1.5-6.6ProThe [facility] Health [facility] CampusComment on above:Performed By: #### CBCA, FEPR, LIVR, 2275-12, 2132-05, 8, 86078-6 #### [facility] ([id number]) [address], [address] [place] [address] #### 63927-8 #### [facility] ([id number]) [address] [place] [address] [id number] RELATIVE PERCENT BY AUTOMATED COUNT65.5 %Normal [facility] CenterComment on above:Performed By: #### CBCA, FEPR, LIVR, 6-4, 2132-05, 8, 77005-1 #### [facility] ([id number]) [address], [address] [place] [address] #### 73006-8 #### [facility] ([id number]) [address] [place] [address] [id number] mean volume (Bld) [Entitic vol]7.6 fLNormal7-12 [facility] CenterComment on above:Performed By: #### CBCA, FEPR, LIVR, 2275-, 2132-05, 2284-04, 82444-2 #### [facility] ([id number]) [address], [address] [place] [address] #### 63483-8 #### [facility] ([id number]) [address] [place] [address] [id number] (Bld) [#/Vol]262 10*3/qIPvzuzq229-322EjfSqlyuy [facility] Children’S HospitalComment on above:Performed By: #### CBCA, FEPR, LIVR, 6-4, 2132-05, 2284-04, 98871-5 #### [facility] ([id number]) [address], [address] [place] [address] #### 88963-4 #### [facility] ([id number]) [address] [place] [address] [id number] COUNT3.68 X10E12/LLow3.8-5.2PWilson [facility] Comment on above:Performed By: #### CBCA, FEPR, LIVR, 2275-12, 2132-05, 2284-04, 62531-0 #### [facility] ([id number]) [address], [address] [place] [address] #### 93523-5 #### [facility] ([id number]) [address] [place] [address] [id number] (Bld) [#/Vol]11.3 10*3/uLHigh4-11[facility] Comment on above:Performed By: #### CBCA, FEPR, LIVR, 2275-12, 2132-05, 2284-04, 60357-3 #### [facility] ([id number]) [address] [facility], [address] [place] [address] #### 27519-0 #### [facility] ([id number]) [address] [place] [address] 15018DZDVCAANTNPAY METABOLIC PANELon 59-46-9403Njhryhg [Mass/Vol]3.0 g/dLLow3.2-5.3PWilson Memorial HospitalComment on above:Performed By: #### CBCA, FEPR, LIVR, 2275-12, 2132-05, 2284-04, 93482-4 #### [facility] ([id number]) [address] [facility], [address] [place] [address] #### 04330-5 #### [facility] ([id number]) [address] [place] [address] 23039FDA [Catalytic activity/Vol]60 U/RXtibnp81-485KdhMualdvThe University Of Texas Medical Branch Health Clear Lake CampusComment on above:Performed By: #### CBCA, FEPR, LIVR, 2275-12, 2131-9, 4-8, 71236-0 #### [facility] ([id number]) [address], [address] [place] [address] #### 29221-9 #### [facility] ([id number]) [address] [place], [place] [address]DNZ [Catalytic activity/Vol]17 U/LNormal<=31ProMedica Valley Children’S HospitalComment on above:Performed By: #### CBCA, FEPR, LIVR, 6-4, 2131-9, 4-8, 80573-7 #### [facility] ([id number]) [address], [address] [place] [address] #### 42222-5 #### [facility] ([id number]) [address] [place] [address] 25019Ecngr gap [Moles/Vol]8 mmol/LNormal5-15ProThe University Of [facility] Medical Branch Health Clear Lake CampusComment on above:Performed By: #### CBCA, FEPR, LIVR, 6-4, 9, 2283-8, 20775-7 #### [facility] ([id number]) [address], [address] [place] [address] #### 70547-6 #### [facility] ([id number]) [address] [place] [address] 80950JGH [Catalytic activity/Vol]17 U/LNormal<=41ProThe University Of Texas Medical Branch Health Clear Lake CampusComment on above:Performed By: #### CBCA, FEPR, LIVR, 6-4, 9, 2283-8, 76038-4 #### [facility] ([id number]) [address], [address] [place] [address] #### 51027-4 #### [facility] ([id number]) [address] [place] [address] 08894Cmrvqbpwc [Mass/Vol]0.8 mg/dLNormal0.3-1.2PWilson Memorial HospitalComment on above:Performed By: #### CBCA, FEPR, LIVR, 2275-4, 2132-05, 8, 73460-1 #### [facility] ([id number]) [address] [facility], [address] [place] [address] #### 81004-8 #### [facility] ([id number]) [address] [place] [address] 73698Eshcfck [Mass/Vol]8.5 mg/dLNormal8.5-10.5PWilson Memorial HospitalComment on above:Performed By: #### CBCA, FEPR, LIVR, 2275-12, 2132-05, 2284-04, 59669-1 #### [facility] ([id number]) [address] [facility], [address] [place] [address] #### 76531-3 #### [facility] ([id number]) [address] [place] [address] 83347Tcabiolv [Moles/Vol]105 mmol/BWzvvqm62-263ApsXuundf Valley Children’S HospitalComment on above:Performed By: #### CBCA, FEPR, LIVR, 2275-, 2132-05, 2284-04, 00223-3 #### [facility] ([id number]) [address] [facility], [address] [place] [address] #### 82756-1 #### [facility] ([id number]) [address] [place] [address] 65981AD4 [Moles/Vol]20 mmol/LRvd78-03SqyPbipesWilson Memorial Hospital Comment on above:Performed By: #### CBCA, FEPR, LIVR, 2275-, 2132-05, 2284-04, 88799-1 #### [facility] ([id number]) [address] [place] [address], [address] [place] [address] #### 48977-4 #### [facility] ([id number]) [address] [place] [address] 93832Afrhnjlcld [Mass/Vol]0.54 mg/dLNormal0.40-1.00Trumbull Regional Medical CenterComment on above:Result Comment: METHOD TRACEABLE TO IDMS STANDARD Performed By: #### CBCA, FEPR, LIVR, 6-4, 9, 2283-8, 83984-6 #### [facility] ([id number]) [address] [place] [address], [facility] [address] [place] [address] #### 26931-1 #### [facility] ([id number]) [address] [place] [address] 06709YLWV (CKD-EPI) NON-RACE DEPENDENT>^90Normal>=60ProThe University Of Texas Medical Branch Health Clear Lake CampusComment on above:Result Comment: eGFR not reported due to non- numeric value for Creatinine. Reported eGFR is based on the CKD-EPI 2020 equation that does not use a race coefficient.Performed By: #### CBCA, FEPR, LIVR, 6-4, 9, 2283-8, 78719-8 #### [facility] ([id number]) [address] [place] [address], [facility] [address] [place] [address] #### 19060-0 #### [facility] ([id number]) [address] [place] [address] 23750Qzljoqu [Mass/Vol]96 mg/zSJpwomk08-21EspZaeoryTrumbull Regional Medical Center Comment on above:Performed By: #### CBCA, FEPR, LIVR, 6-4, 9, 4-8, 76136-3 #### [facility] ([id number]) [address] [place] [address], [address] [place] [address] #### 04139-7 #### [facility] ([id number]) [address] [place] [address] 96126Ypxhuvanv [Moles/Vol]3.6 mmol/LNormal3.5-5.0ProThe University Of Texas Medical Branch Health Clear Lake CampusComment on above:Performed By: #### CBCA, FEPR, LIVR, 6-4, 9, 2284-04, 59612-4 #### [facility] ([id number]) [address] [facility], [address] [place] [address] #### 76486-9 #### [facility] ([id number]) [address] [place] [address] 74828Culbrot [Mass/Vol]6.3 g/dLNormal6.0-8.0ProThe University Of Texas Medical Branch Health Clear Lake CampusComment on above:Performed By: #### CBCA, FEPR, LIVR, 2275-12, 2132-05, 2284-04, 15453-6 #### [facility] ([id number]) [address] [facility], [address] [place] [address] #### 81549-6 #### [facility] ([id number]) [address] [place] [address] 12321Vjnday [Moles/Vol]133 mmol/QMiq118-559TuyOukvkzThe University Of Texas Medical Branch Health Clear Lake CampusComment on above:Performed By: #### CBCA, FEPR, LIVR, 2275-4, 2132-05, 2284-04, 69185-0 #### [facility] ([id number]) [address] [facility], [address] [place] [address] #### 32264-4 #### [facility] ([id number]) [address] [place] [address] 46749Shix nitrogen [Mass/Vol]12 mg/dLNormal5-23ProThe University Of Texas [facility] Branch Health Clear Lake CampusComment on above:Performed By: #### CBCA, FEPR, LIVR, 2276-4, 2132-9, 2284-8, 61273-9 #### [facility] ([id number]) [address] [facility], [address] [place] [address] #### 30696-2 #### [facility] ([id number]) [address] [facility], FIRST FLOOR [place], [place] [address]SON,APTIMA HPV,AGE GDLNon 35-13-4537JVS GDLN ACOG TESTINGNote. NOMS HealthcareComment on above:TESTS RESULT FLAG UNITS REF RANGE LAB Clinician Provided Cytology Information Source.............Endocervix No. of containers..01 ThinPrep Vial Age Algo ACOG Luisa... FLAG LEGEND: L-Low Normal,H-High Normal,LL-Alert Low,HH-Alert High <-Panic Low,>-Panic High,A-Abnormal,AA-Critical Abnormal Performed at: 01 =G [facility] [address] [address] Flores Rodgers MD, HPV APTIMANegativeNegativeNOMS HealthcareComment on above:This nucleic acid amplification test detects fourteen high- risk HPV types (16,18,31,33,35,39,45,51,52,56,58,59,66,68) without differentiation. Performed at: =G - [facility] [address], [place] [id number] Proof Technician: Flores Rodgers MD, Phone: [phone] Performed at: - [facility], [place] [id number] Proof Technician: Flores Rodgers MD, Phone: [phone] IGP, APTIMA HPV, RFX 16/18,45Note.NOMS HealthcareComment on above:TESTS RESULT FLAG UNITS REF RANGE LAB DIAGNOSIS: 02 NEGATIVE FOR INTRAEPITHELIAL LESION OR MALIGNANCY. Specimen adequacy: 02 Satisfactory for evaluation. No endocervical component is identified. Performed by: 02 Jorge Whittington, Tissue Recovery Technician ([facility]) . 02 Note: Note 02 The Pap [...] <-Panic Low,>-Panic High,A-Abnormal,AA-Critical Abnormal Performed at: [address] [facility] [address] [address] Flores Rodgers MD, SPATULA-ALONE ENDOCERVIX CLINISYNCNOMS HealthcareLIPASEon 79-98-0377Rsuahm [Catalytic activity/Vol]25 U/L Xvmkrd89-13NloSujmgiTrumbull Regional Medical CenterComment on above:Performed By: #### CBCA, FEPR, LIVR, 2276-4, 2132-9, 2284-8, 34321-9 #### [facility] ([id number]) [address] [place] [address], [address] [place] [address] #### 91485-1 #### [facility] ([id number]) [address] [place] [address], FIRST FLOOR [place], [place] [address]SWFX NURSING URINE MACROSCOPIC UAon 59-81-1104LHKGLAQAW LAMBERT NegativeNormalNegativeTrumbull Regional Medical CenterComment on above:Performed By: #### NUM #### [facility] ([facility]) [address] [place] [address] VIRBLOOD/HGB NURNegativeResearch Psychiatric CenteralNegSalem Regional Medical CenterComment on above:Performed By: #### NUM #### [facility] ([facility]) [address] [place] [address] VIRGLUCOSE NURNegativeNonovant health thomasville medical centerNegSalem Regional Medical Center Comment on above:Performed By: #### NUM #### [facility] ([facility]) [address] [place] [address] VIRKETONES NURNegativeNoalNegSalem Regional Medical Center Comment on above:Performed By: #### NUM #### [facility] ([facility]) [address] [place] [address] VIRLEUKOCYTE ESTERASE NURNegativeNormalNegSalem Regional Medical CenterComment on above:Performed By: #### NUM #### [facility] ([facility] [address] VIRNITRITE NURNegativeNormalNegativeTrumbull Regional Medical Center Comment on above:Performed By: #### NUM #### [facility] ([address] [place] [address] VIRPH NUR6.7Wmnsjw9.0, 6.0, 6.5, 7.0, 7.5, 8.0, 8.5, 5.5 Tr[facility]ull Regional Medical CenterComment on above:Performed By: #### NUM #### [facility] ([address] [address] VIRPROTEIN NURNegativeNormscNegativeTrumbull Regional Medical Center Comment on above:Performed By: #### NUM #### [facility] ([address] [address] VIRSPECIFIC GRAVITY NUR1.362Fmuzdd4.010, 1.015, 1.020, 1.025 Tr[facility]ull Regional Medical CenterComment on above:Performed By: #### NUM #### [facility] ([address] [address] VIRUROBILINOGEN NUR2.0 E.U./dLKettering Health Springfield Comment on above:Performed By: #### NUM #### [facility] ([address] [address] VIRUS ABDOMEN LMTDon 46-75-9553CG ABDOMEN LMTDUS ABDOMEN LMTD US ABDOMEN LMTD [...] by Murali Mendoza MD on 06/17/2025 11:35 AMNormalProMediPalomar Medical CenterUrinalysis macro (dipstick) panel (U)on 63-81-8201Zmnofmosy, UANegative Negative - 4(70) +++ mg/dLNOMS HealthcareBlood, [...] 3 FUNCTon 05-29-2025 ANTI THROMBIN 3 FUNCT93 %Mgsikc19-437ItyGjikpiChildren'S Hospital For RehabilitationComment on above: Performed By: #### UPCR #### [facility] ([facility]) [address] [place] [address] VIRB-TYPE NATRIURETIC PEPTIDEon 45-63-9881Qxswqiclvmk peptide B (Bld) [Mass/Vol]23 pg/mLNormal<=100ProChildren'S Hospital For RehabilitationComment on above: Performed By: #### BNP #### [facility] ([facility]) [address] [place] [address] VIRCBC (NO DIFF)on 28-41-7750Jdutbcrdlor distribution width (RBC) [Ratio]13.5 %Tkzfii50.5-15ProMedica Kent HospitalComment on above: Performed By: #### CBC #### [facility] ([facility]) [address] [place] [address] VIRHematocrit (Bld) [Volume fraction]33.8 %Qph85-35BcgXtgpsx Kent HospitalComment on above:Performed By: #### CBC #### [facility] ([facility]) [address] [place] [address] VIRHemoglobin (Bld) [Mass/Vol]11.8 g/xWPzaxbk50.7-15.5ProMedica Mcdaniels HospitalComment on above:Performed By: #### CBC #### [facility] ([facility]) [address] [place] [address] VIRMCH (RBC) [Entitic mass]30.9 rfFyciig03-11YpmUcdzzs Kent HospitalComment on above:Performed By: #### CBC #### [facility] ([facility]) [address] [place] [address] VIRMCHC (RBC) [Mass/Vol]34.8 g/sPXxlfjr20-29PwmWbbpoh Mcdaniels HospitalComment on above:Performed By: #### CBC #### [facility] ([facility]) [address] [place] [address] VIRMCV (RBC) [Entitic vol]89 qYPpvfgi10-531RtiIdvthl Kent HospitalComment on above:Performed By: #### CBC #### [facility] ([facility]) [address] [place] [address] VIRPlatelet mean volume (Bld) [Entitic vol]8.4 fLNormal7-12 ProMedica Mcdaniels HospitalComment on above:Performed By: #### CBC #### [facility] ([facility]) [address] [place] [address] VIRPlatelets (Bld) [#/Vol]245 10*3/fFWlhlhx547-739XnzLkeqya [place] HospitalComment on above:Performed By: #### CBC #### [facility] ([facility]) [address] [place] [address] VIRRBC COUNT3.81 X10E12/LNormal3.8-5.2PWood County Hospital Comment on above:Performed By: #### CBC #### [facility] ([facility]) [address] [place] [address] VIRWBC (Bld) [#/Vol]9.8 10*3/uLNormal4-11K[facility]tering Memorial HospitalComment on above:Performed By: #### CBC #### [facility] ([facility]) [address] [place] [address] VIRCBC without diffon 01-66-5031Bsofctogqab distribution width (RBC) [Ratio]13.5 %11.5 - 15 %[facility] Health SystemHematocrit (Bld) [Volume fraction]33.8 %Low35 - 47 %[facility] Health SystemHemoglobin (Bld) [Mass/Vol] 11.8 g/dL11.7 - 15.5 g/dLMount Carmel Health SystemInterpretation and review of laboratory resultsAbnoAtrium Health Kings MountainH (RBC) [Entitic mass]30.9 pg 27 - 34 [facility] SouthMCHC (RBC) [Mass/Vol]34.8 g/dL32 - 36 g/dL [facility] Health SystemMCV (RBC) [Entitic vol]89 fL80 - 100 [facility] Medical CenterPlatelet mean volume (Bld) [Entitic vol]8.4 fL7 - 12 [facility] Medical CenterPlatelets (Bld) [#/Vol]245 10*3/uLMount Carmel Health SystemRBC (Bld) [#/Vol] 3.81 10*6/uLMount Carmel Health SystemWBC LM Ql (Sput)9.8[facility] Medical CenterCOMPREHENSIVE METABOLIC PANELon 72-08-1011Jsuztgk [Mass/Vol]3.7 g/dLNormal3.2-5.3ProMedica Kent HospitalComment on above: Performed By: #### CMP #### [facility] ([facility]) [address] [place] [address] VIRALP [Catalytic activity/Vol]69 U/CLmvxbq58-353GvoAezztz Kent HospitalComment on above:Performed By: #### CMP #### [facility] ([facility]) [address] [place] [address] VIRALT [Catalytic activity/Vol]11 U/LNormal<=31ProMedica [facility] HospitalComment on above:Performed By: #### CMP #### [facility] ([facility]) [address] [place] [address] VIRAnion gap [Moles/Vol]14 mmol/LNormal5-15ProMedica [facility] HospitalComment on above:Performed By: #### CMP #### [facility] ([facility]) [address] [place] [address] VIRAST [Catalytic activity/Vol]12 U/LNormal<=41ProMedica [facility] HospitalComment on above:Performed By: #### CMP #### [facility] ([facility]) [address] [place] [address] VIRBilirubin [Mass/Vol]0.3 mg/dLNormal0.3-1.2ProMedKing's Daughters Medical Center Ohio HospitalComment on above:Performed By: #### CMP #### [facility] ([facility]) [address] [place] [address] VIRCalcium [Mass/Vol]8.8 mg/dLNormal8.5-10.5ProMedbaypointe hospital Kent HospitalComment on above:Performed By: #### CMP #### [facility] ([facility]) [address] [place] [address] VIRChloride [Moles/Vol]106 mmol/GAczuiz11-218NlqEhbolr Kent HospitalComment on above:Performed By: #### CMP #### [facility] ([facility]) [address] [place] [address] VIRCO2 [Moles/Vol]19 mmol/GDhw65-14QntNpgdfnFayette County Memorial Hospital Comment on above:Performed By: #### CMP #### [facility] ([facility]) [address] [place] [address] VIRCreatinine [Mass/Vol]0.45 mg/dLNormal0.40-1.00ProCorey Hospitalca Mcdaniels HospitalComment on above:Result Comment: METHOD TRACEABLE TO IDMS STANDARDPerformed By: #### CMP #### [facility] ([facility]) [address] [place] [address] VIREGFR (CKD-EPI) NON-RACE DEPENDENT>^90Normal>=60ProChildren'S Hospital For RehabilitationComment on above:Result Comment: Reported eGFR is based on the CKD-EPI 2020 equation that does not use a race coefficient.Performed By: #### CMP #### [facility] ([facility]) [address] [place] [address] VIRGlucose [Mass/Vol]128 mg/rLCwsu94-63SygVgloui [facility]edo HospitalComment on above:Performed By: #### CMP #### [facility] ([facility]) [address] [place] [address] VIRPotassium [Moles/Vol]3.6 mmol/LNormal3.5-5.0ProLima City Hospital HospitalComment on above:Performed By: #### CMP #### [facility] ([facility]) [address] [place] [address] VIRProtein [Mass/Vol]6.5 g/dLNormal6.0-8.0ProLima City Hospital HospitalComment on above:Performed By: #### CMP #### [facility] ([facility]) [address] [place] [address] VIRSodium [Moles/Vol]139 mmol/GHhhsju332-712EatXdgsgm [facility] HospitalComment on above:Performed By: #### CMP #### [facility] ([facility]) [address] [place] [address] VIRUrea nitrogen [Mass/Vol]9 mg/dLNormal5-23ProMedica Mcdaniels HospitalComment on above:Performed By: #### CMP #### [facility] ([facility]) [address] [place] [address] VIRFERRITINon 22-66-9200Cmmuhepp [Mass/Vol]15 ng/mHSxmcvu88-632 ProMedica Mcdaniels HospitalComment on above:Performed By: #### FERR #### [facility] ([facility]) [address] [place] [address] VIRFOLATEon 73-05-1290TIABM ACID13.3 ng/mLNormal>5.8ProMedica Mcdaniels HospitalComment on above:Performed By: #### FOLI #### [facility] ([facility]) [address] [place] [address] VIRIRON AND TIBCon 72-46-1269Dqfe [Mass/Vol]71 ug/dLNormal 50-170ProMedica Mcdaniels HospitalComment on above:Performed By: #### FEPR #### [facility] ([facility]) [address] [place] [address] VIRIRON FHGQHLJ891 ug/nGCwca201-982ShpQeasqx [facility] Comment on above:Performed By: #### FEPR #### [facility] ([facility]) [address] [place] [address] VIRIRON BQALTMECEF82 % MNLSULJAIZBptlqy42-35KrzNxfnly Mcdaniels HospitalComment on above:Performed By: #### FEPR #### [facility] ([facility]) [address] [place] [address] VIRTransferrin [Mass/Vol]332 mg/qRHcdlhy075-069HwnBrnbvh [place] HospitalComment on above:Performed By: #### FEPR #### [facility] ([facility]) [address] [place] [address] VIRLDHon 16-86-4861IIZ838 U/NOdutdi206-017XfuFhgalb [place] HospitalComment on above:Performed By: #### LDH #### [facility] ([facility]) [address] [place] [address] VIRPROTEIN C ACTIVITYon 11-80-2866CNSUNPO C RIDPCGQT326 %Normal 70-140ProChildren'S Hospital For RehabilitationComment on above:Performed By: #### UPCR #### [facility] ([facility]) [address] [place] [address] VIRPROTEIN CREAT RATIOon 05-29-2025U/PRO/LOCKSTITCH SLEEVE MAKER RATIO CALC0.08 Normal<=0.20ProChildren'S Hospital For RehabilitationComment on above:Order Comment: Nephrotic Syndrome is associated with ratios >3.5Performed By: #### UPCR #### [facility] ([facility]) [address] [place] [address] VIRURINE CREATININE,MPQ604.80 mg/dLNormalProChildren'S Hospital For RehabilitationComment on above:Order Comment: Nephrotic Syndrome is associated with ratios >3.5Performed By: #### UPCR #### [facility] ([facility]) [address] [place] [address] VIRURINE PROTEIN, RANDOM (MG/L)110 mg/LNormal<120ProChildren'S Hospital For RehabilitationComment on above:Order Comment: Nephrotic Syndrome is associated with ratios >3.5Performed By: #### UPCR #### [facility] ([facility]) [address] [place] [address] VIRPROTEIN S ACTIVITYon 08-98-2723QATHVLG S VKIABQAO35 %Low 64-149ProChildren'S Hospital For RehabilitationComment on above:Result Comment: Oral contraceptives, hormonal therapy, [...] other laboratory findings.Performed By: #### UPCR #### [facility] ([facility]) [address] [place] [address] VIRTHIAMIN (VITAMIN B1), WBon 22-30-2483ZOCVUQV (VITAMIN B1), WB123 nmol/LGidyqq34-910QouNuzmcd [facility]edo HospitalComment on above:Result Comment: ADDITIONAL INFORMATION This test was developed and its performance characteristics determined by [facility] in a manner consistent with CLIA requirements. This test has not been cleared or approved by the U.S. Food and Drug Administration. Test Performed by: [place] [address] Proof Technician: Jayce Daniels Ph.D.; CLIA# [id number] By: #### UPCR #### [facility] ([facility]) [address] [place] [address] VIRURIC ACIDon 43-83-3178Twjhr [Mass/Vol]4.4 mg/dLNormal2.6-7.2 [facility] Va Medical CenterComment on above:Performed By: #### URIC #### [facility] ([facility]) [address] [place] [address] VIRVITAMIN B12on 61-86-9997Qmjogbhgg (Vitamin B12) [Mass/Vol] 243 pg/lNZbjygy105-155DsrCqqore Togus Va Medical CenterComment on above:Performed By: #### UPCR #### [facility] ([facility]) [address] [place] [address] VIRVITAMIN D 25 HYDROXYon 54-07-0303OQQBRZT D 25 HYD TOT27.1 ng/mLLow30.0-100.0ProChildren'S Hospital For RehabilitationComment on above:Order Comment: Vitamin D status 25 [place] Vitamin D Deficiency <20 ng/mL Insufficiency 20-29 ng/mL Sufficiency 30-100 ng/mL Toxicity >100 ng/mL NOTE: A pediatric reference range has not been established by the director of medicare of this kit. The [place] [employer] recommends a Vitamin D level of = or >20ng/mL in infants and children.Performed By: #### VITD #### [facility] ([facility]) [address] [place] [address] VIRZINC, SERUMon 64-88-8217FISS, S62 mcg/zGWpyyyj28-706 [facility] Va Medical CenterComment on above:Result Comment: ADDITIONAL INFORMATION This test was developed and its performance characteristics determined by [facility] in a manner consistent with CLIA requirements. This test has not been cleared or approved by the U.S. Food and Drug Administration. Test Performed by: [place] [address] Proof Technician: Jayce Daniels Ph.D.; CLIA# [id number] By: #### UPCR #### [facility] ([facility]) [address] [place] [address] VIRUrinalysis macro (dipstick) panel (U)on 88-31-6131Uosnxeoeb, UANegativeNegative - 4(70) +++ mg/dLNOMS HealthcareBlood, UANegativeNegative - 50 Raul/mcLNOMS HealthcareClarity, UAClearNOMS HealthcareColor, UAYellowNOMS HealthcareGlucose, UANegativeNegative - 2000(110) ++++ mg/dLNOMS Healthcare Interpretation and review of laboratory resultsNormalNOMS HealthcareKetones, UA NegativeNegative - 160(16) ++++ mg/dLNOMS HealthcareLeukocytes, UANegative Negative - 500+++ Ramo/mcLNOMS HealthcareNitrite, UANegativeNegative - Positive NOMS HealthcarepH, UA5.55 - 9NOMS HealthcareProtein, UANegativeNegative - 2000(20) ++++ mg/dLNOMS HealthcareSpec Grav, UA1.021 - 1.03NOMS Healthcare Urobilinogen, UA1.00.2 - 12 mg/dLNOMS HealthcareNOMS HealthcareUrinalysis macro (dipstick) panel (U)on 48-54-9733Rpjqoqccx, UANegativeNegative - 4(70) +++ mg/dL NOMS HealthcareBlood, UANegativeNegative - 50 Raul/mcLNOMS HealthcareClarity, UA ClearNOMS HealthcareColor, UAAmberNOOH HealthcareGlucose, UANegativeNegative - 2000(110) ++++ mg/dLNOOH HealthcareInterpretation and review of laboratory resultsNormalSEVIER VALLEY [facility] HealthcareKetones, UANegativeNegative - 160(16) ++++ mg/dLSEVIER VALLEY HOSPITAL HealthcareLeukocytes, UANegativeNegative - 500+++ Ramo/[facility] Healthcare Nitrite, UANegativeNegative - PositiveNOMS HealthcarepH, UA65 - 9NOOH Healthcare Protein, UANegativeNegative - 2000(20) ++++ mg/dLNOMS HealthcareSpec Grav, UA 1.031 - 1.03NOOH HealthcareUrobilinogen, UA1.00.2 - 12 mg/dLSaint Luke's Health SystemNOMS HealthcareBOX TESTon 23-67-8748RIM TEST SENT OUTUNOHIOHEALTH SHELBY [facility] NpqxvkikwoSSK5UNBXE [facility] GrayzoizocKTB28/NOOH HealthcareCLINISYNCBasic Metabolic Panelon 04-01-2317Cxriufm [Mass/Vol]97 mg/dLGreen Cross Hospital SystemCBC and differential on 84-40-6980Kdyzjcckpz (Bld) [Volume fraction]37 %36 - 46 %[facility] SystemInterpretation and review of laboratory resultsAbnoAtrium Health Carolinas Rehabilitation CharlotteWBC (Bld) [#/Vol]12.4 10*3/mLAbnormal3.3 - 10.0 10*3/mLGreen Cross Hospital SystemCBC without diffon 62-39-4634Ixfylgcbjh (Bld) [Volume fraction]36.5 % [facility] Mcv (Fl) By Automated Count87.1PWood County HospitalDrug Screen, Urineon 81-19-7415Fwkqtetplrk/MethamphetamineNegative [facility] SystemBarbituratesNegativeMount [facility] Health System BenzodiazepinesNegativeMount [facility]el Health SystemCocaine MetaboliteNegative [facility] SystemMethadoneNegativeMount Carmel Health SystemOpiatesNegative [facility] SystemOxycodoneNegativeMount Carmel Health SystemPhencyclidine NegativeMount Carmel Health SystemTh Marijuana, UrineNegativeMount Carmel Health SystemHBV surface Ag IA Qlon 83-77-8295Bgfgywxwl B Surface AntigenNegative [facility] SystemHCV Ab IA Qlon 40-17-5563DSU Ab Ql (S)Non-Reactive [facility] SystemHIV 1+2 Ab+HIV1 p24 Ag IA Qlon 84-84-2618ZHI 1&2 AB/AG Non-ReactiveMount Carmel Health SystemHemoglobin A1con 90-89-8539HiR2q (Bld) [Mass fraction]5 %4.0 - 6.0 %[facility] SystemLaboratory - Hematology and Cell countson 52-50-6248Yhvrxpdkil (Bld) [Mass/Vol]12.3 g/dLMount Carmel Health System Platelets (Bld) [#/Vol]243 10*3/uLMount Carmel Health SystemNo Panel Informationon 30-26-0568IPDO HealthcareRubella IGG immune statuson 21-19-0707Soaldkj immune IgG1.59[facility] Health SystemT. pallidum IgG+IgM IA Ql (S)Ordered By: Anne Pozo on 74-11-3174JmleekyzAmt-ReactiveMount Carmel Health SystemHCG ( test) Ql (U)on 54-55-5098Bkfssyyonmekpl and review of laboratory resultsNormal NOMS HealthcarePreg Test, UrPositiveNegativeNOSaint Francis Hospital & Health ServicesNOOH HealthcareUS OB TRANSVAGINALon 31-86-4129DT OB TRANSVAGINALFINDINGS: A single intrauterine gestational sac [...] No LMP recorded.Urinalysis macro (dipstick) panel (U)on 60-64-0728Mbmgkdqxe, UA NegativeNegative - 4(70) +++ mg/dLNOMS HealthcareBlood, [...] AND AUTO DIFFon 01-01-2025 ABSOLUTE BASOPHIL0.1 X10E9/LNormal0.0-0.2ProMedica Valley Children’S HospitalComment on above:Performed By: #### CBCA, FEPR, LIVR, 2276-4, 2132-9, 2284-8, 70118-9 #### [facility] ([id number]) [address] [facility], [address] [place] [address] #### 42146-9 #### [facility] ([id number]) [address] [place] [address] 86463IWEBFOSJ NEUTROPHIL6.0 X10E9/LNormal1.5-6.6ProThe University Of Texas Medical Branch Health Clear Lake CampusComment on above:Performed By: #### CBCA, FEPR, LIVR, 2275-4, 9, 2283-8, 73540-4 #### [facility] ([id number]) [address] [place] [address], [address] [place] [address] #### 75852-5 #### [facility] ([id number]) [address] [place] [address] 02993Zshmvrnsb/100 WBC (Bld)0.7 %[facility] Comment on above:Performed By: #### CBCA, FEPR, LIVR, 2275-12, 2132-05, 8, 18409-5 #### [facility] ([id number]) [address] [place] [address], [address] [place] [address] #### 52837-1 #### [facility] ([id number]) [address] [place] [address] 94811Dwpbycpxdjb (Bld) [#/Vol]0.1 10*3/uLNormal0.0-0.4Trumbull Regional Medical CenterComment on above:Performed By: #### CBCA, FEPR, LIVR, 2275-4, 9, 8, 13326-1 #### [facility] ([id number]) [address] [place] [address], [address] [place] [address] #### 59987-6 #### [facility] ([id number]) [address] [place] [address] 39801Pktuntqocsm/100 WBC (Bld)0.9 %[facility] Comment on above:Performed By: #### CBCA, FEPR, LIVR, 2275-4, 2132-05, 2284-04, 22242-7 #### [facility] ([id number]) [address], [address] [place] [address] #### 96199-9 #### [facility] ([id number]) [address] [place] [address] 10508Pbdnyvbpeqn distribution width (RBC) [Ratio]14.2 %Normal 11.5-15.0Trumbull Regional Medical CenterComment on above:Performed By: #### CBCA, FEPR, LIVR, 6-4, 2132-05, 2284-04, 11749-7 #### [facility] ([id number]) [address], [address] [place] [address] #### 28184-3 #### [facility] ([id number]) [address] [place] [address] 74161Iegfdrafyf (Bld) [Volume fraction]38.0 %Yxfnda96-19McdQxjbkqThe University Of [facility] Medical Branch Health Clear Lake CampusComment on above:Performed By: #### CBCA, FEPR, LIVR, 2275-, 2132-05, 2284-04, 41251-7 #### [facility] ([id number]) [address], [address] [place] [address] #### 45816-9 #### [facility] ([id number]) [address] [place] [address] 08306Yvlmcbwkxy (Bld) [Mass/Vol]12.8 g/pOYabusu36.7-15.5ProMedica Valley Children’S HospitalComment on above:Performed By: #### CBCA, FEPR, LIVR, 2275-, 2132-05, 2284-04, 83704-3 #### [facility] ([id number]) [address], [address] [place] [address] #### 95913-9 #### [facility] ([id number]) [address] [place] [address] 55968Bkpvavotpin (Bld) [#/Vol]3.8 10*3/uLHigh1.0-3.5PWilson Memorial HospitalComment on above:Performed By: #### CBCA, FEPR, LIVR, 6-4, 2-9, 4-8, 57900-8 #### [facility] ([id number]) [address] [place] [address] #### 61029-4 #### [facility] ([id number]) [address] [place] [address] 94758Lvtuzvpwfjz/100 WBC (Bld)36.4 %NormalTrumbull Regional Medical Center Comment on above:Performed By: #### CBCA, FEPR, LIVR, 6-4, 9, 8, 94323-4 #### [facility] ([id number]) [address] [address], [address] [place] [address] #### 04955-5 #### [facility] ([id number]) [address] [place] [address] 54803MKV (RBC) [Entitic mass]28.8 vfWicefu38-79ZuoVlfashTrumbull Regional Medical CenterComment on above:Performed By: #### CBCA, FEPR, LIVR, 6-4, 9, 8, 14916-6 #### [facility] ([id number]) [address] [address], [address] [place] [address] #### 08172-4 #### [facility] ([id number]) [address] [place] [address] 01519IMIP (RBC) [Mass/Vol]33.8 g/sEYqrknh74-44IhyPvhiypThe University Of [facility] Branch Health Clear Lake CampusComment on above:Performed By: #### CBCA, FEPR, LIVR, 2276-4, 9, 2283-8, 11155-9 #### [facility] ([id number]) [address] [place] [address], [address] [place] [address] #### 76438-5 #### [facility] ([id number]) [address] [place] [address] 24201FTT (RBC) [Entitic vol]85 eDIxxkbd46-104NidAlytoy Fremont HospitalComment on above:Performed By: #### CBCA, FEPR, LIVR, 2275-4, 9, 2284-04, 06859-6 #### [facility] ([id number]) [address] [place] [address], [address] [place] [address] #### 28667-9 #### [facility] ([id number]) [address] [place] [address] 53858Mjshykzup (Bld) [#/Vol]0.4 10*3/uLNormal0-0.9ProThe University Of [facility] Health Clear Lake CampusComment on above:Performed By: #### CBCA, FEPR, LIVR, 2275-4, 2132-05, 2284-04, 53800-5 #### [facility] ([id number]) [address] [place] [address], [address] [place] [address] #### 19384-3 #### [facility] ([id number]) [address] [place] [address] 31803Ytwmrlzzo/100 WBC (Bld)4.1 %NormalProThe University Of [facility] Comment on above:Performed By: #### CBCA, FEPR, LIVR, 6-, 2132-05, 2284-04, 13205-2 #### [facility] ([id number]) [address] [place] [address], [address] [place] [address] #### 48193-1 #### [facility] ([id number]) [address] [place] [address] 59165Ffoxqjpsknh/100 WBC (Bld)57.9 %NormalTrumbull Regional Medical Center Comment on above:Performed By: #### CBCA, FEPR, LIVR, 2275-4, 2132-05, 8, 42913-2 #### [facility] ([id number]) [address], [address] [place] [address] #### 17450-5 #### [facility] ([id number]) [address] [place] [address] 38009Ibtnlbzo mean volume (Bld) [Entitic vol]8.7 fLNormal7-12 [facility] Regional Medical CenterComment on above:Performed By: #### CBCA, FEPR, LIVR, 2275-12, 2132-05, 2284-04, 71518-4 #### [facility] ([id number]) [address], [address] [place] [address] #### 94537-0 #### [facility] ([id number]) [address] [place] [address] 86777Ksjpsczcm (Bld) [#/Vol]308 10*3/jCKpwvcl245-580QkaJtdjkgTrumbull Regional Medical CenterComment on above:Performed By: #### CBCA, FEPR, LIVR, 2275-12, 2132-05, 8, 65688-4 #### [facility] ([id number]) [address], [address] [place] [address] #### 09518-4 #### [facility] ([id number]) [address] [place] [address] 03420WOZ COUNT4.45 X10E12/LNormal3.80-5.20[facility] Comment on above:Performed By: #### CBCA, FEPR, LIVR, 2275, 2132-05, 2284-04, 20122-4 #### [facility] ([id number]) [address] [place] [address] [address] [place] [address] #### 63270-2 #### [facility] ([id number]) [address] [place] [address] 13048ZCY (Bld) [#/Vol]10.5 10*3/uLNormal4.0-11.0ProMedica Valley Children’S HospitalComment on above:Performed By: #### CBCA, FEPR, LIVR, 2275-12, 2132-05, 2284-04, 26737-0 #### [facility] ([id number]) [address] [place] [address], [address] [address] #### 00282-4 #### [facility] ([id number]) [address] [place] [address] 92060BZPLSTKFim 57-47-3541Aycexqeo [Mass/Vol]40 ng/eSVridvj48-279 [facility] Medical CenterComment on above:Performed By: #### CBCA, FEPR, LIVR, 2275-12, 2132-05, 2284-04, 18266-8 #### [facility] ([id number]) [address] [place] [address] [address] [place] [address] #### 94339-3 #### [facility] ([id number]) [address] [place] [address] 30129Yclnwd [Mass/Vol]on 50-72-8971EKTJI ACID4.0 ng/mLLow>5.8 [facility] Medical CenterComment on above:Result Comment: NEW REFERENCE RANGE Performed By: #### CBCA, FEPR, LIVR, 2275-, 2132-05, 2284-04, 64375-6 #### [facility] ([id number]) [address] [place] [address], [address] [place] [address] #### 15491-0 #### [facility] ([id number]) [address] [place] [address] 96442WEUB PROFILEon 70-48-8170Hllh [Mass/Vol]36 ug/zVKar67-531 [facility] Medical CenterComment on above:Performed By: #### CBCA, FEPR, LIVR, 6-4, 9, 2283-8, 01887-9 #### [facility] ([id number]) [address] [facility], [address] [place] [address] #### 59422-0 #### [facility] ([id number]) [address] [place] [address] 79613KIDS XGICCHL823 ug/qRAcrjac622-372OgoAlvoycTrumbull Regional Medical Center Comment on above:Performed By: #### CBCA, FEPR, LIVR, 2275-, 2132-05, 8, 13843-0 #### [facility] ([id number]) [address] [place] [address], [address] [place] [address] #### 01874-9 #### [facility] ([id number]) [address] [place] [address] 52546ZSMW ICAXQIYNPQ14 % RHESLBBWGGLxs40-80AtdRlscma Fremont HospitalComment on above:Performed By: #### CBCA, FEPR, LIVR, 2275-4, 2132-05, 8, 31520-9 #### [facility] ([id number]) [address] [facility], [address] [place] [address] #### 01299-2 #### [facility] ([id number]) [address] [place] [address] 47107PCMTT PANELon 97-72-1698Lkpzlnu [Mass/Vol]4.1 g/dLNormal3.2-5.3 [facility] Medical CenterComment on above:Performed By: #### CBCA, FEPR, LIVR, 2276-4, 2131-9, 2283-8, 64030-5 #### [facility] ([id number]) [address], [address] [place] [address] #### 24841-7 #### [facility] ([id number]) [address] [place] [address] 11289LIX [Catalytic activity/Vol]95 U/XRctcnr77-643DryOkhnxwTrumbull Regional Medical CenterComment on above:Performed By: #### CBCA, FEPR, LIVR, 6-4, 9, 2283-8, 15622-2 #### [facility] ([id number]) [address] [facility] [address] [place] [address] #### 28796-9 #### [facility] ([id number]) [address] [place] [address] 96322ADL [Catalytic activity/Vol]24 U/LNormal0-31ProMedHollywood Community Hospital of Van NuysComment on above:Performed By: #### CBCA, FEPR, LIVR, 6-4, 9, 2283-8, 41668-6 #### [facility] ([id number]) [address], [address] [place] [address] #### 73968-4 #### [facility] ([id number]) [address] [place] [address] 57335DKY [Catalytic activity/Vol]18 U/LNormal0-41ProThe University Of [facility] Branch Health Clear Lake CampusComment on above:Performed By: #### CBCA, FEPR, LIVR, 2276-4, 9, 2283-8, 49017-9 #### [facility] ([id number]) [address], [address] [place] [address] #### 86579-0 #### [facility] ([id number]) [address] [place] [address] 53094Sarewgfpl [Mass/Vol]0.4 mg/dLNormal0.3-1.2PWilson Memorial HospitalComment on above:Performed By: #### CBCA, FEPR, LIVR, 6-4, 2131-9, 4-8, 30782-8 #### [facility] ([id number]) [address], [address] [place] [address] #### 32702-3 #### [facility] ([id number]) [address] [place] [address] 18423Nksvftaeh.direct [Mass/Vol]0.2 mg/dLNormal0.0-0.4ProThe University Of [facility] Branch Health Clear Lake CampusComment on above:Performed By: #### CBCA, FEPR, LIVR, 2275-4, 9, 8, 82484-4 #### [facility] ([id number]) [address] [facility] [address] [place] [address] #### 59820-5 #### [facility] ([id number]) [address] [place] [address] 24967Ospevao [Mass/Vol]7.1 g/dLNormal6.0-8.0Trumbull Regional Medical CenterComment on above:Performed By: #### CBCA, FEPR, LIVR, 6-4, 9, 8, 76953-9 #### [facility] ([id number]) [address] [facility], [address] [place] [address] #### 17500-1 #### [facility] ([id number]) [address] [place] [address] 20722Sztueoup (Bld) [Moles/Vol]on 15-43-2401Hcpkhve (Vitamin B1), WB 118 nmol/CVuyghm51-388PhaDmnqcuThe University Of [facility] Branch Health Clear Lake CampusComment on above:Result Comment: NOTE ADDITIONAL INFORMATION This test was developed and its performance characteristics determined by [facility] in a manner consistent with CLIA requirements. This test has not been cleared or approved by the U.S. Food and Drug Administration. Test Performed by: [facility] [address] [place] [address] Proof Technician: Jayce Daniels Ph.D.; CLIA# [id number] By: #### CBCA, FEPR, LIVR, 6-4, 9, 8, 54332-2 #### [facility] ([id number]) [address] [facility], [address] [place] [address] #### 48786-5 #### [facility] ([id number]) [address] [place] [address] 47085YFGPVWB B12on 79-72-3297Idjxaokoj (Vitamin B12) [Mass/Vol]379 pg/rFYrsbpn534-071LoxAznkth Valley Children’S HospitalComveterans affairs medical center on above:Performed By: #### CBCA, FEPR, LIVR, 6-4, 9, 8, 97771-1 #### [facility] ([id number]) [address], [address] [place] [address] #### 76464-8 #### [facility] ([id number]) [address] [place] [address] 50668Pvguuap D+Metabolites [Mass/Vol]on 90-28-4242TMDBAHF D 25 HYD TOT32.4 ng/jDZcqazl10-713CsfRwlymz Valley Children’S HospitalComveterans affairs medical center on above:Result Comment: Vitamin D status 25 [place] Vitamin D Deficiency <20 ng/mL Insufficiency 20-29 ng/mL Sufficiency 30-100 ng/mL Toxicity >100 ng/mL NOTE: A pediatric reference range has not been established by the director of medicare of this kit. The [place] [employer] recommends a Vitamin D level of = or >20ng/mL in infants and children.Performed By: #### CBCA, FEPR, LIVR, 2276-4, 2132-9, 2284-8, 72225- 6 #### [facility] ([id number]) [address] [facility] [facility] [place] [address] #### 87488-8 #### [facility] ([id number]) [address] [facility] FIRST FLO[address] [place], [place] [address]MN SPINE LUMBAR 2 OR 3 VWSon 66-77-6735BQ SPINE LUMBAR 2 OR 3 VWSXR SPINE [...] by Jovanni Gallegos MD on 12/15/2024 1:53 PMNormalProMedica Valley Children’S HospitalLaboratory - Microbiology and Antimicrobial susceptibilityon 10-10-2024 SARS-CoV-2 (COVID-19) RNA MYNOR+probe Ql (Unsp spec)NegativeNOOH HealthcareNo Panel Informationon 13-46-3111HYM APositiveNOMS HealthcareFLU BNegativeNOMS HealthcareInterpretation and review of laboratory resultsAbnormalSaint Luke's Health System NOMS HealthcareUrinalysis macro (dipstick) panel (U)on 75-73-0953Vbuhrcakl, UA NegativeNegative - 4(70) +++ mg/dLNOMS HealthcareBlood, UAPositiveNegative - 50 Raul/mcLNOMS HealthcareClarity, UAClearNOMS HealthcareColor, UAYellowNOMS HealthcareGlucose, UANegativeNegative - 2000(110) ++++ mg/dLNOMS Healthcare Interpretation and review of laboratory resultsAbnormalNOOH HealthcareKetones, UAPositiveNegative - 160(16) ++++ mg/dLSEVIER VALLEY HOSPITAL HealthcareLeukocytes, UA1+Negative - 500+++ Ramo/mcLNOOH HealthcareNitrite, UANegativeNegative - PositiveNOMS HealthcarepH, UA5.05 - 9NOMS HealthcareProtein, UA1+Negative - 2000(20) ++++ mg/dLNOOH HealthcareSpec Grav, UA1.0201 - 1.03NOOH HealthcareUrobilinogen, UA4.0 0.2 - 12 mg/dLNOSaint Francis Hospital & Health ServicesNOOH HealthcareAmbulatory referral to Nutrition Serviceson 20-06-5029ZlpUnqtlfWood County HospitalCreatinine includes GFR, serumon 75-76-3756Frweipxadb [Mass/Vol]0.69 mg/dL0.40 - 1.00 mg/dLMount Carmel Health SystemComment on above:METHOD TRACEABLE TO BACKUS HOSPITAL STANDARDeGFR (CKD-EPI)non-race dependent- PINLiberty HospitalComment on above: Reported eGFR is based on the CKD-EPI 2020 equation that does not use a race coefficient. [facility] Health SystemHemoglobin and hematocrit, bloodon 34-91-4192Jqnpixaowo (Bld) [Volume fraction]35.0 %35 - 47 %[facility] Health SystemHemoglobin (Bld) [Mass/Vol]11.4 g/dLLow11.7 - 15.5 g/dLMount Carmel Health SystemInterpretation and review of laboratory resultsAbnoAtrium Health Carolinas Rehabilitation CharlotteNo Panel Information on 58-18-9316FypTxmyqjWood County HospitalPlatelet counton 15-13-9706Uejrffbl mean volume (Bld) [Entitic vol]7.8 fL7 - 12 [facility] CenterPlatelets (Bld) [#/Vol]323 10*3/uLMount Carmel Health SystemHCG ( test) Ql (U)on [id number] County HospitalPOCT , urineon [id number] ( test) Ql (U)NegativeNegative^NegativeMount Carmel Health SystemBasic Metabolic Panelon [id number] gap [Moles/Vol]11 mmol/L5 - 15 mmol/[facility] DaytonCalcium [Mass/Vol]9.6 mg/dL8.5 - 10.5 mg/dLMount [facility]el Health System Chloride [Moles/Vol]102 mmol/L98 - 109 mmol/[facility] SystemCO2 [Moles/Vol]24 mmol/L22 - 32 mmol/[facility] DaytonCreatinine [Mass/Vol] 0.60 mg/dL0.40 - 1.00 mg/dLMount Carmel Health SystemComment on above:METHOD TRACEABLE TO BACKUS HOSPITAL STANDARDeGFR (CKD-EPI)non-race dependent- [facility] Community HospitalComment on above: Reported eGFR is based on the CKD-EPI 2020 equation that does not use a race coefficient. Glucose [Mass/Vol]110 mg/aTSksa52 - 99 mg/dLMount Carmel Health System Interpretation and review of laboratory resultsAbnormalMount [facility]el Health System Potassium [Moles/Vol]4.2 mmol/L3.5 - 5.0 mmol/Counts include [facility]odium [Moles/Vol]137 mmol/L134 - 146 mmol/[facility] DaytonUrea nitrogen [Mass/Vol]13 mg/dL5 - 23 mg/dLEncompass Health Rehabilitation Hospital of AltoonaCBC without diffon [id number] distribution width (RBC) [Ratio]15.0 %11.5 - 15.0 %[facility] SystemHematocrit (Bld) [Volume fraction]38.3 %35 - 47 % [facility] SystemHemoglobin (Bld) [Mass/Vol]12.8 g/dL11.7 - 15.5 g/dL [facility] HospitalH (RBC) [Entitic mass]27.7 pg27 - 34 [facility] SouthMCHC (RBC) [Mass/Vol]33.5 g/dL32 - 36 g/dLMount Carmel Health SystemMCV (RBC) [Entitic vol]83 fL80 - 100 [facility] CenterPlatelet mean volume (Bld) [Entitic vol]7.9 fL7 - 12 [facility] CenterPlatelets (Bld) [#/Vol]318 10*3/uLProCommunity Memorial HospitalRBC (Bld) [#/Vol]4.63 10*6/uLMount Carmel Health SystemWBC corrected for nucl RBC Auto (Bld) [#/Vol]9.0[facility] CenterCBC AUTO DIFFon [id number] #0.1 103/ulNormal0.0-0.1 [facility] SystemComment on above:Performed By: #### CBC #### [facility] [address] [place] [address] Dr. Emmanuel MurrayBasophils/100 WBC (Bld)0.6 %Normal0.2-2.0[facility] Comment on above:Performed By: #### CBC #### [facility] [address] [place] [address] Dr. Emmanuel Hopkins #0.2 103/ulNormal0.0-0.7The [facility] Medical CenterComment on above: Performed By: #### CBC #### [facility] [address] [place] [address] Dr. Emmanuel Brownosinophils/100 WBC (Bld)1.8 %Normal0.9-7.0[facility] Comment on above:Performed By: #### CBC #### [facility] [address] [place] [address] Dr. Emmanuel Brownrythrocyte distribution width (RBC) [Ratio]14.4 %Yyippl52.0-15.0 [facility] SystemComment on above:Performed By: #### CBC #### [facility] [address] [place] [address] Dr. Emmanuel MurrayHematocrit (Bld) [Volume fraction]37.7 %Pwpxfc81.0-48.0[facility] SystemComment on above:Performed By: #### CBC #### [facility] [address] [place] [address] Dr. Emmanuel MurrayHemoglobin (Bld) [Mass/Vol]12.2 g/iYYccclp67.0-16.0[facility] SystemComment on above:Performed By: #### CBC #### [facility] [address] [place] [address] Dr. Emmanuel Gunderson #0.08 10e3/ulCritically high0.00-0.03The [facility] Comment on above:Performed By: #### CBC #### [facility] [address] [place] [address] Dr. Emmanuel Gunderson %0.8 %Critically high0.0-0.5The [facility] Medical CenterComment on above:Performed By: #### CBC #### [facility] [address] [place] [address] Dr. Emmanuel Dorsey #3.0 103/ulNormal1.2-3.8The [facility] CenterComment on above:Performed By: #### CBC #### [facility] [address] [place] [address] Dr. Emmanuel Cateshocytes/100 WBC (Bld)30.6 %Bsebvr41.5-60.0The [facility] CenterComment on above:Performed By: #### CBC #### [facility] [address] [place] [address] Dr. Emmanuel AwadUAL DIFF REQNONormalThe [facility] Medical CenterComment on above: Performed By: #### CBC #### [facility] [address] [place] [address] Dr. Emmanuel Austin (RBC) [Entitic mass]26.0 pgCritically low26.7-34.0The [facility] CenterComment on above:Performed By: #### CBC #### [facility] [address] [place] [address] Dr. Emmanuel Marcus (RBC) [Mass/Vol]32.4 g/iQDemvxo05.9-35.2The [facility] CenterComment on above:Performed By: #### CBC #### [facility] [address] [place] [address] Dr. Emmanuel Marcus (RBC) [Entitic vol]80.4 fLCritically low81.0-99.0The [facility] CenterComment on above:Performed By: #### CBC #### [facility] [address] [place] [address] Dr. Emmanuel Baldwin #0.4 103/ulNormal0.3-0.8The [facility] CenterComment on above:Performed By: #### CBC #### [facility] [address] [place] [address] Dr. Emmanuel Sanchezocytes/100 WBC (Bld)4.6 %Normal1.7-12.0The [facility] Comment on above:Performed By: #### CBC #### [facility] [address] [place] [address] Dr. Emmanuel VillaltaUT #6.0 103/ulNormal1.4-6.5The [facility] CenterComment on above:Performed By: #### CBC #### [facility] [address] [place] [address] Dr. Emmanuel Villaltautrophils/100 WBC (Bld)61.6 %Qkbpiy26.0-75.0The [facility] CenterComment on above:Performed By: #### CBC #### [facility] [address] [place] [address] Dr. Emmanuel Christy mean volume (Bld) [Entitic vol]8.9 fLCritically low 9.5-13.5The [facility] CenterComment on above:Performed By: #### CBC #### [facility] [address] [place] [address] Dr. Emmanuel MurrayPLT301 103/hhElvstj082-327Lyf [facility] CenterComment on above: Performed By: #### CBC #### [facility] [address] [place] [address] Dr. Emmanuel MurrayRBC4.69 106/ulNormal4.20-5.40The [facility] CenterComment on above:Performed By: #### CBC #### [facility] [address] [place] [address] Dr. Emmanuel MurrayWBC9.7 103/ulNormal4.0-11.0The [facility] CenterComment on above: Performed By: #### CBC #### [facility] [address] [place] [address] Dr. Emmanuel MurrayPREG QUANT HCGon [id number] QUANT1 mIU/mLNormalThe [facility] CenterComment on above:Performed By: #### CVDTBH #### [facility] [address] [place] [address] Dr. Emmanuel GandhiG RANGESEE BELOWAkron Children's HospitalComment on above: Result Comment: 5-50 0.2-1 WEEK 50-500 1-2 WEEKS 100-5,000 2-3 WEEKS 500-10,000 3-4 WEEKS 1,000-50,000 4-5 WEEKS 10,000-100,000 5-6 WEEKS 15,000-200,000 6-8 WEEKS 10,000-100,000 2-3 MONTHSPerformed By: #### CVDTBH #### [facility] [address] [place] [address] Dr. Emmanuel MurrayUS PELVIS AND TRANSVAGon [id number] PELVIS AND TRANSVAG EXAMINATION: US PELVIS AND [...] Electronically authenticated by: ASHLEY GRIER Date: 2022-09-26 16:50[facility] ACOG PANEL 2: 21 to 29on 07-04-2022..NormalThe [facility] Medical CenterComment on above:Performed By: #### [id number] #### [facility] [address] [place] [address] Dr. Emmanuel MurrayAge Gdln ACOG Qxfjrvx47-45KattarNxpKnox Community HospitalComment on above:Performed By: #### [id number] #### [facility] [address] [place] [address] Dr. Emmanuel MurrayDIAGNOSIS:CommentThe [facility] on above: Result Comment: NEGATIVE FOR INTRAEPITHELIAL LESION OR MALIGNANCY.Performed By: #### [id number] #### [facility] [address] [place] [address] Dr. Emmanuel MurrayMethodology:CommentThe [facility] on above: Result Comment: This liquid based ThinPrep(R) pap test was screened with the use of an image guided system.Performed By: #### [id number] #### [place] [address] Dr. Emmanuel MurrayNote:CommentThe [facility] on above:Result Comment: The Pap smear is a screening test designed to aid in the detection of premalignant and malignant conditions of the uterine cervix. It is not a diagnostic procedure and should not be used as the sole means of detecting cervical cancer. Both false-positive and false-negative reports do occur. .Performed By: #### [id number] #### [place] [address] Dr. Emmanuel MurrayPerformed by:CommentThe [facility] on above: Result Comment: Nathalia Grier, Auto Tester (ASCP)Performed By: #### [id number] #### [facility] [address] [place] [address] Dr. Emmanuel MurrayReflex Criteria:CommentThe [facility] on above:Result Comment: The HPV DNA reflex criteria were not met with this specimen result therefore, no HPV testing was performed. .Performed By: #### [id number] #### [facility] [address] [place] [address] Dr. Emmanuel MurraySpecimen adequacy:CommentThe [facility] on above:Result Comment: Satisfactory for evaluation. No endocervical component is identified.Performed By: #### [id number] #### [facility] [address] [place] [address] Dr. Emmanuel MurrayUS PELVIS AND TRANSVAGon [id number] PELVIS AND TRANSVAG EXAMINATION: US PELVIS AND [...] Electronically authenticated by: ASHLEY GRIER Date: 2022-07-02 16:21NormalThe [facility] AUTO DIFFon [id number] #0.0 103/ulNormal0.0-0.1The [facility] CenterComment on above:Performed By: #### CBC #### [facility] [address] [place] [address] Dr. Emmanuel MurrayBasophils/100 WBC (Bld)0.5 %Normal0.2-2.0[facility] Comment on above:Performed By: #### CBC #### [facility] [address] [place] [address] [address] Emmanuel Hopkins #0.2 103/ulNormal0.0-0.7The [facility] Medical CenterComment on above: Performed By: #### CBC #### [facility] [address] [place] [address] Dr. Emmanuel Brownosinophils/100 WBC (Bld)1.8 %Normal0.9-7.0[facility] Comment on above:Performed By: #### CBC #### [facility] [address] [place] [address] [address] Emmanuel Brownrythrocyte distribution width (RBC) [Ratio]14.3 %Diyxfr46.0-15.0 The [facility] Medical CenterComment on above:Performed By: #### CBC #### [facility] [address] [place] [address] Dr. Emmanuel MurrayHematocrit (Bld) [Volume fraction]36.8 %Nsaasl69.0-48.0The [facility] Medical CenterComment on above:Performed By: #### CBC #### [facility] [address] [place] [address] Dr. Emmanuel MurrayHemoglobin (Bld) [Mass/Vol]11.5 g/dLCritically low12.0-16.0The [facility] CenterComment on above:Performed By: #### CBC #### [facility] [address] [place] [address] Dr. Emmanuel Gunderson #0.03 10e3/ulNormal0.00-0.03The [facility] CenterComment on above:Performed By: #### CBC #### [facility] [address] [place] [address] Dr. Emmanuel Gunderson %0.4 %Normal0.0-0.5The [facility] Medical CenterComment on above: Performed By: #### CBC #### [facility] [address] [place] [address] Dr. Emmanuel Dorsey #1.9 103/ulNormal1.2-3.8The [facility] CenterComment on above:Performed By: #### CBC #### [facility] [address] [place] [address] Dr. Emmanuel Cateshocytes/100 WBC (Bld)23.2 %Kzxkwl47.5-60.0The [facility] CenterComment on above:Performed By: #### CBC #### [facility] [address] [place] [address] Dr. Emmanuel AwadUAL DIFF REQNONormalThe [facility] CenterComment on above: Performed By: #### CBC #### [facility] [address] [place] [address] Dr. Emmanuel Marcus (RBC) [Entitic mass]25.6 pgCritically low26.7-34.0The [facility] CenterComment on above:Performed By: #### CBC #### [facility] [address] [place] [address] Dr. Emmanuel Marcus (RBC) [Mass/Vol]31.3 g/wAUkgseb92.9-35.2The [facility] CenterComment on above:Performed By: #### CBC #### [facility] [address] [place] [address] [address] Emmanuel MarcusV (RBC) [Entitic vol]81.8 iOMaghhm77.0-99.0The [facility] CenterComment on above:Performed By: #### CBC #### [facility] [address] [place] [address] [address] Emmanuel Baldwin #0.3 103/ulNormal0.3-0.8The [facility] HospitalComment on above:Performed By: #### CBC #### [facility] [address] [place] [address] Dr. Emmanuel Sanchezocytes/100 WBC (Bld)3.5 %Normal1.7-12.0The [facility] on above:Performed By: #### CBC #### [facility] [address] [place] [address] Dr. Emmanuel Hannah #5.9 103/ulNormal1.4-6.5The [facility] CenterComment on above:Performed By: #### CBC #### [facility] [address] [place] [address] Dr. Emmanuel Villaltautrophils/100 WBC (Bld)70.6 %Ddbdwb59.0-75.0The [facility] CenterComment on above:Performed By: #### CBC #### [facility] [address] [place] [address] Dr. Emmanuel Coboslet mean volume (Bld) [Entitic vol]9.5 fLNormal9.5-13.5The [facility] CenterComment on above:Performed By: #### CBC #### [facility] [address] [place] [address] Dr. Emmanuel MurrayPLT292 103/qzQhvfjc763-342Oek [facility] CenterComment on above: Performed By: #### CBC #### [facility] [address] [place] [address] Dr. Emmanuel MurrayRBC4.50 106/ulNormal4.20-5.40The [facility] CenterComment on above:Performed By: #### CBC #### [facility] [address] [place] [address] Dr. Emmanuel MurrayWBC8.4 103/ulNormal4.0-11.0[facility] on above: Performed By: #### CBC #### [facility] [address] [place] [address] Dr. Emmanuel King QUANT HCGon [id number] QUANT<1NormalAvita Health System Comment on above:Performed By: #### PREGQNT, TSH #### [facility] [address] [place] [address] Dr. Emmanuel Vasquez RANGESEE [facility] on above: Result Comment: 5-50 0.2-1 WEEK 50-500 1-2 WEEKS 100-5,000 2-3 WEEKS 500-10,000 3-4 WEEKS 1,000-50,000 4-5 WEEKS 10,000-100,000 5-6 WEEKS 15,000-200,000 6-8 WEEKS 10,000-100,000 2-3 MONTHSPerformed By: #### PREGQNT, TSH #### [facility] [address] [place] [address] Dr. Emmanuel MurrayPROTIMEon [id number] Coag (PPP) [Relative time]1.01 {INR} NormalOhio State East Hospital on above:Performed By: #### PT, PTT #### [facility] [address] [place] [address] Dr. Emmanuel Cantu GUIDELINESE Genesis HospitalComveterans affairs medical center on above:Result Comment: DESIRED INR: 2.0 - 3.0 CONDITIONS NOT LISTED BELOW 2.5 - 3.5 FOR PROSTHETIC HEART VALVE REPLACEMENT 2.5 - 3.5 RECURRENT THROMBOSIS Performed By: #### PT, PTT #### [facility] [address] [place] [address] Dr. Emmanuel MurrayPT Coag (PPP) [Time]10.9 sNormal9.0-11.6ThRegency Hospital Cleveland East Comment on above:Performed By: #### PT, PTT #### [facility] [address] [address] [address] Emmanuel Lobo [id number] Coag (Bld) [Time]27.2 pDpjdxi93.3-36.2The [facility] on above:Performed By: #### PT, PTT #### [facility] [address] [address] [address] Emmanuel Gtz 59-50-2431LIN4.795 uIU/mLNormal0.358-3.740The [facility] CenterComveterans affairs medical center on above:Performed By: #### PREGQNT, TSH #### [facility] [address] [place] [address] Dr. Emmanuel Saunders Metabolic Panelon [id number] gap [Moles/Vol]13 mmol/L9 - 17 mmol/LMercy HealthCalcium [Mass/Vol]9.2 mg/dL8.6 - 10.4 mg/dLHocking Valley Community Hospital Health Chloride [Moles/Vol]99 mmol/L98 - 107 mmol/LMercy HealthCO2 [Moles/Vol]23 mmol/L 20 - 31 mmol/LMercy HealthCreatinine [Mass/Vol]0.53 mg/dL0.50 - 0.90 mg/dLMercy HealthGFR >60>60 mL/minMercy HealthGFR Non->60 >60 mL/minMercy HealthGFR/1.73 sq M.predicted MDRD (S/P/Bld) [Vol rate/Area] [facility] HospitalComveterans affairs medical center on above:Average GFR for 20-29 years old: 116 mL/min/1.73sq m Chronic Kidney Disease: <60 mL/min/1.73sq m Kidney failure: <15 mL/min/1.73sq m eGFR calculated using average adult body mass. Additional eGFR calculator available at: http://www.Lessno.HydroLogex/multiple_crcl_2012.htm Glucose [Mass/Vol]109 mg/eMDhkt61 - 99 mg/dLMer HealthInterpretation and review of laboratory resultsAbnormalMer HealthPotassium [Moles/Vol]4.2 mmol/L 3.7 - 5.3 mmol/LMercy HealthSodium [Moles/Vol]135 mmol/L135 - 144 mmol/LMercy HealthUrea nitrogen (BldV) [Mass/Vol]13 mg/dL6 - 20 mg/dLHocking Valley Community Hospital HealthUrea nitrogen/Creatinine (Bld) [Mass ratio]25HighWisconsin Heart Hospital– WauwatosaBasic Metabolic Profon 12-05-2021(cont.)NormalCleveland Clinic Marymount HospitalComment on above: Result Comment: Average GFR for 20-29 years old: 116 mL/min/1.73sq m Chronic Kidney Disease: <60 mL/min/1.73sq m Kidney failure: <15 mL/min/1.73sq m eGFR calculated using average adult body mass. Additional eGFR calculator available at: http://www.Milk/multiple_crcl_2012.htmPerformed By: #### CBC, HEPXA, CMPX, MG, TSHX, TROPI #### [facility] [address] [place] [phone] Proof Technician: Dexter Fried MD #### LIPR #### [address] [phone] Proof Technician: Flynn Porter gap [Moles/Vol]13 mmol/LNormal9-17[facility] HospitalComment on above:Performed By: #### CBC, HEPXA, CMPX, MG, TSHX, TROPI #### [facility] [place], [place] [id number] Proof Technician: Dexter Fried MD #### LIPR #### [address] [phone] Proof Technician: Paco Tatum MDBUN/CRE Fquoe22Fzom7-99AzamhCleveland Clinic Marymount Hospital Comment on above:Performed By: #### CBC, HEPXA, CMPX, MG, TSHX, TROPI #### [facility] [address] [place] [phone] Proof Technician: Dexter Fried MD #### LIPR #### [address] [phone] Proof Technician: Paco Tatum MDCalcium [Mass/Vol]9.2 mg/dLNormal8.6-10.4[facility] HospitalComveterans affairs medical center on above:Performed By: #### CBC, HEPXA, CMPX, MG, TSHX, TROPI #### [facility] [address] [place] [phone] Proof Technician: Dexter Fried MD #### LIPR #### [address] [phone] Proof Technician: CELESTE Porterhloride [Moles/Vol]99 mmol/IQhspmx25-625ZyxenCleveland Clinic Marymount HospitalComveterans affairs medical center on above:Performed By: #### CBC, HEPXA, CMPX, MG, TSHX, TROPI #### [facility] [address] [place] [address] Proof Technician: Dexter Fried MD #### LIPR #### [address] [address] Proof Technician: Paco Tatum MDCO2 [Moles/Vol]23 mmol/CHupeie50-19NijigCleveland Clinic Marymount HospitalComveterans affairs medical center on above:Performed By: #### CBC, HEPXA, CMPX, MG, TSHX, TROPI #### [facility] [address] [place] [phone] Proof Technician: Dexter Fried MD #### LIPR #### [address] [address] Proof Technician: CELESTE Porterreatinine [Mass/Vol]0.53 mg/dLNormal0.50-0.90 [facility] on above:Performed By: #### CBC, HEPXA, CMPX, MG, TSHX, TROPI #### [facility] [address] [place] [phone] Proof Technician: Dexter Fried MD #### LIPR #### [address] [address] Proof Technician: Paco Tatum MDGFR, Amer>60Normal>60[facility] HospitalComveterans affairs medical center on above:Performed By: #### CBC, HEPXA, CMPX, MG, TSHX, TROPI #### [facility] [address] [place] [phone] Proof Technician: Dexter Fried MD #### LIPR #### [address] [address] Proof Technician: Paco Tatum MDGFR,non Amer>60Normal>60[facility] HospitalComveterans affairs medical center on above:Performed By: #### CBC, HEPXA, CMPX, MG, TSHX, TROPI #### [facility] [address] [place] [phone] Proof Technician: Dexter Fried MD #### LIPR #### [address] [address] Proof Technician: Paco Tatum MDGlucose [Mass/Vol]109 mg/rDYolh13-37LvodoGalion Hospital on above:Performed By: #### CBC, HEPXA, CMPX, MG, TSHX, TROPI #### [facility] [address] [place] [phone] Proof Technician: Dexter Fried MD #### LIPR #### [address] [phone] Proof Technician: Paco Tatum, MDPotassium [Moles/Vol]4.2 mmol/LNormal3.7-5.3 [facility] HospitalComveterans affairs medical center on above:Performed By: #### CBC, HEPXA, CMPX, MG, TSHX, TROPI #### [facility] [address] [place] [phone] Proof Technician: Dexter Fried MD #### LIPR #### [address] [address] Proof Technician: Paco Tatum MDSodium [Moles/Vol]135 mmol/CAugemn410-328OvomqCleveland Clinic Marymount HospitalComveterans affairs medical center on above:Performed By: #### CBC, HEPXA, CMPX, MG, TSHX, TROPI #### [facility] [address] [place] [phone] Proof Technician: Dexter Fried MD #### LIPR #### [address] [address] Proof Technician: Paco Tatum MDUrea nitrogen [Mass/Vol]13 mg/dLNormal6-20[facility] HospitalComveterans affairs medical center on above:Performed By: #### CBC, HEPXA, CMPX, MG, TSHX, TROPI #### [facility] [address] [place] [phone] Proof Technician: Dexter Fried MD #### LIPR #### [address] [address] Proof Technician: CELESTE Porter with Auto Differentialon [id number] Eos #0.14Mercy HealthAbsolute Immature Granulocyte0.03Mercy HealthAbsolute Lymph #2.57Mercy HealthAbsolute [place] #0.34Mercy HealthBasophils (Bld) [#/Vol]0.10 10*3/uLCleveland Clinic Mentor HospitalBasophils/100 WBC (Bld)1 %0 - 2 %[facility] HospitalEosinophils/100 WBC (Bld)2 %1 - 4 %[facility] HospitalHematocrit (Bld) [Volume fraction]38.1 %36.3 - 47.1 %[facility] HospitalHemoglobin.gastrointestinal spec 1 Ql (Stl)11.8 g/dLLow11.9 - 15.1 g/dLCleveland Clinic Mentor HospitalImmature granulocytes/100 WBC (Bld)0 %[address] [place] [address] Interpretation and review of laboratory resultsAbnormUniversity Hospitals Health System Lymphocytes/100 WBC (Bld)29 %24 - 43 %Pomerene HospitalH (RBC) [Entitic mass]26.5 pg25.2 - 33.5 pgPomerene HospitalHC (RBC) [Mass/Vol]31.0 g/dL28.4 - 34.8 g/dLPomerene HospitalV (RBC) [Entitic vol]85.6 fL82.6 - 102.9 fLCleveland Clinic Mentor HospitalMonocytes/100 WBC (Bld)4 %3 - 12 %[facility] HospitalNRBC Automated0.00.0 per 100 WBCCleveland Clinic Mentor HospitalPlatelet distribution width (Bld) [Ratio]14.2 %11.8 - 14.4 %[facility] Ment[facility] HospitalPlatelet mean volume (Bld) [Entitic vol]9.3 fL8.1 - 13.5 fLCleveland Clinic Mentor HospitalPlatelets (Bld) [#/Vol] 377 10*3/[facility] CenterRBC (Bld) [#/Vol]4.45 10*6/uL3.95 - 5.11 m/[facility] Segmented neutrophils/100 WBC (Bld)64 %36 - 65 %[facility] HospitalSegs Absolute5.62 [facility] HospitalWBC (Bld) [#/Vol]8.8 10*3/[facility] CenterCBC with Diffon [id number]. Basophil0.10 k/uLNormal0.00-0.20[facility] HospitalComment on above:Performed By: #### CBC, HEPXA, CMPX, MG, TSHX, TROPI #### [facility] [address] [place] [phone] Proof Technician: Dexter Fried MD #### LIPR #### [address] [address] Proof Technician: Khadra Porter.Imm.Granulocyte0.03 k/uLNormal0.00-0.30[facility] HospitalComveter[facility] affairs [facility] on above:Performed By: #### CBC, HEPXA, CMPX, MG, TSHX, TROPI #### [facility] [address] [place] [address] Proof Technician: Dexter Fried MD #### LIPR #### [address] [address] Proof Technician: Khadra Porter.Neutrophil (Seg)5.62 k/uLNormal1.50-8.10 [facility]Comv[facility] on above:Performed By: #### CBC, HEPXA, CMPX, MG, TSHX, TROPI #### [facility] [address] [place] [address] Proof Technician: Dexter Fried MD #### LIPR #### [address] [address] Proof Technician: Paco Tatum MDBasophils/100 WBC (Bld)1 %Normal0-2[facility] HospitalComv[facility] on above:Performed By: #### CBC, HEPXA, CMPX, MG, TSHX, TROPI #### [facility] [address] [place] [address] Proof Technician: Dexter Fried MD #### LIPR #### [address] [address] Proof Technician: Paco Tatum MDEosinophils (Bld) [#/Vol]0.14 10*3/uLNormal 0.00-0.44[facility] on above:Performed By: #### CBC, HEPXA, CMPX, MG, TSHX, TROPI #### [facility] [address] [place] [address] Proof Technician: Dexter Fried MD #### LIPR #### [address] [address] Proof Technician: Paco Tatum MDEosinophils/100 WBC (Bld)2 %Normal1-4[facility] on above:Performed By: #### CBC, HEPXA, CMPX, MG, TSHX, TROPI #### [facility] [address] [place] [address] Proof Technician: Dexter Fried MD #### LIPR #### [place] [address] Proof Technician: Paco Tatum MDErythrocyte distribution width (RBC) [Ratio]14.2 %Gvmzch58.8-14.4[facility] HospitalComv[facility] affairs [facility] on above:Performed By: #### CBC, HEPXA, CMPX, MG, TSHX, TROPI #### [facility] [address] [place] [address] Proof Technician: Dexter Fried MD #### LIPR #### [address] [address] Proof Technician: Paco Tatmu MDHematocrit (Bld) [Volume fraction]38.1 %Normal 36.3-47.1[facility] on above:Performed By: #### CBC, HEPXA, CMPX, MG, TSHX, TROPI #### [facility] [address] [place] [address] Proof Technician: Dexter Fried MD #### LIPR #### [address] [address] Proof Technician: Paco Tatum MDHemoglobin (Bld) [Mass/Vol]11.8 g/dLLow11.9-15.1 [facility] on above:Performed By: #### CBC, HEPXA, CMPX, MG, TSHX, TROPI #### [facility] [address] [place] [address] Proof Technician: Dexter Fried MD #### LIPR #### [address] [address] Proof Technician: Paco Tatum MDImmature granulocytes/100 WBC (Bld)0 %Normal0 [facility]Comv[facility] on above:Performed By: #### CBC, HEPXA, CMPX, MG, TSHX, TROPI #### [facility] [address] [place] [address] Proof Technician: Dexter Fried MD #### LIPR #### [address] [address] Proof Technician: Paco Tatum MDLymphocytes (Bld) [#/Vol]2.57 10*3/uLNormal 1.10-3.70[facility] on above:Performed By: #### CBC, HEPXA, CMPX, MG, TSHX, TROPI #### [facility] [address] [place] [address] Proof Technician: Dexter Fried MD #### LIPR #### [address] [address] Proof Technician: Paco Tatum MDLymphocytes/100 WBC (Bld)29 %Quriro73-35IuxblCleveland Clinic Marymount HospitalComment on above:Performed By: #### CBC, HEPXA, CMPX, MG, TSHX, TROPI #### [facility] [address] [place] [address] Proof Technician: Dexter Fried MD #### LIPR #### [address] [address] Proof Technician: AMIRA Porter (RBC) [Entitic mass]26.5 jbVnozjf80.2-33.5 [facility] HospitalComment on above:Performed By: #### CBC, HEPXA, CMPX, MG, TSHX, TROPI #### [facility] [address] [place] [address] Proof Technician: Dexter Fried MD #### LIPR #### [address] [address] Proof Technician: AMIRA PorterC (RBC) [Mass/Vol]31.0 g/cWWpgfld57.4-34.8 [facility] HospitalComment on above:Performed By: #### CBC, HEPXA, CMPX, MG, TSHX, TROPI #### [facility] [address] [place] [address] Proof Technician: Dexter Fried MD #### LIPR #### [address] [address] Proof Technician: OCTAVIA PorterCV (RBC) [Entitic vol]85.6 zPZdrhqs07.6-102.9 [facility] HospitalComveter[facility] affairs medical center on above:Performed By: #### CBC, HEPXA, CMPX, MG, TSHX, TROPI #### [facility] [address] [place] [address] Proof Technician: Dexter Fried MD #### LIPR #### [address] [address] Proof Technician: Paco Tatum MDMonocytes (Bld) [#/Vol]0.34 10*3/uLNormal 0.10-1.20[facility] on above:Performed By: #### CBC, HEPXA, CMPX, MG, TSHX, TROPI #### [facility] [address] [place] [address] Proof Technician: Dexter Fried MD #### LIPR #### [address] [address] Proof Technician: Paco Tatum MDMonocytes/100 WBC (Bld)4 %Normal3-12[facility] HospitalComveterans affairs medical center on above:Performed By: #### CBC, HEPXA, CMPX, MG, TSHX, TROPI #### [facility] [address] [place] [address] Proof Technician: Dexter Fried MD #### LIPR #### [address] [address] Proof Technician: Paco Tatum MDNeutrophil (Seg)64 %Qylirn87-75YadavAccess Hospital Dayton on above:Performed By: #### CBC, HEPXA, CMPX, MG, TSHX, TROPI #### [facility] [address] [place] [address] Proof Technician: Dexter Fried MD #### LIPR #### [address] [address] Proof Technician: Paco Tatum MDNRBC Automated0.0 per 100 WBCNormal0.0[facility] on above:Performed By: #### CBC, HEPXA, CMPX, MG, TSHX, TROPI #### [facility] [address] [place] [address] Proof Technician: Dexter Fried MD #### LIPR #### [address] [address] Proof Technician: Keysha Porter mean volume (Bld) [Entitic vol]9.3 fL Normal8.1-13.5[facility] on above:Performed By: #### CBC, HEPXA, CMPX, MG, TSHX, TROPI #### [facility] [address] [place] [address] Proof Technician: Dexter Fried MD #### LIPR #### [address] [address] Proof Technician: Jason Porter (Bld) [#/Vol]377 10*3/dGXmmvug198-254 [facility] on above:Performed By: #### CBC, HEPXA, CMPX, MG, TSHX, TROPI #### [facility] [address] [place] [address] Proof Technician: Dexter Fried MD #### LIPR #### [address] [address] Proof Technician: PATRICIA Porter (Bld) [#/Vol]4.45 10*6/uLNormal3.95-5.11 [facility] on above:Performed By: #### CBC, HEPXA, CMPX, MG, TSHX, TROPI #### [facility] [address] [place] [address] Proof Technician: Dexter Fried MD #### LIPR #### [facility] [address] [place] [address] Proof Technician: Paco Tatum MDWBC (Bld) [#/Vol]8.8 10*3/uLNormal3.5-11.3[facility] HospitalComment on above:Performed By: #### CBC, HEPXA, CMPX, MG, TSHX, TROPI #### [facility] [address] [place] [address] Proof Technician: Dexter Fried MD #### LIPR #### [facility] [address] [place] [address] Proof Technician: ALFIE Porter CHEST PORTABLEon [id number] CHEST PORTABLE EXAMINATION: ONE XRAY VIEW OF [...] Signed by: Elmira Cisneros MD 12/05/21 Final resultNormalMercy Deer Park Hospitaltable chest without acute process. [facility] CON[facility]ATEDEXAM[facility]ATION[facility] ONE XRAY VIEW OF THE CHEST 12/05/2021 3:55 pm COMPARISON: 11/30/2021 HISTORY: ORDERING SYSTEM PROVIDED HISTORY: cough Additional signs and symptoms: cough, sob and chest pain FINDINGS: The lungs are without acute focal process. No effusion or pneumothorax. The cardiomediastinal silhouette is stable. The osseous structures are intact without acute process. [facility] Elmira August MD - 12/05/2021 EXAMINATION: ONE XRAY VIEW OF THE CHEST 12/05/2021 3:55 pm COMPARISON: 11/30/2021 HISTORY: ORDERING SYSTEM PROVIDED HISTORY: cough Additional signs and symptoms: cough, sob and chest pain FINDINGS: The lungs are without acute focal process. No effusion or pneumothorax. The cardiomediastinal silhouette is stable. The osseous structures are intact without acute process. IMPRESSION: Stable chest without acute process. [employer] Phone: radiology Study observation (narrative)[facility] HospitaltheDrop Phone: XR CHEST PORTABLEOrdered By: Elmira Cisneros on [id number] Health Segopotso Phone: Prot. Electrophoresis, Uron [id number] Review:ELECTRONICALLY SIGNED. DEXTER FRIED M.D.[facility]inity [facility] SystemComment on above:Performed By: #### CBC, HEPXA, CMPX, MG, TSHX, TROPI #### [facility] [address] [place] [address] Proof Technician: Dexter Fried MD #### LIPR #### [facility] [employer] [address] [place] [address] Proof Technician: Aysha Porter.-Prot.Elect-InterSLIGHTLY ELEVATED TOTAL PROTEIN CONCENTRATION. PATTERN OBSERVED IS INCREASEDNormalCleveland Clinic Marymount HospitalComment on above:Result Comment: CONC. OF LOW MOLECULAR WEIGHT PROTEINS. PATTERN MAY BE SEEN WITH MINIMAL RENAL DYSFUNCTION OR WITH VARIOUS INFLAMMITORY/INFECTIOUS PROCESSES IN THE BODY (OVERFLOW PROTEINURIA).Performed By: #### CBC, HEPXA, CMPX, MG, TSHX, TROPI #### [facility] [address] [place] [address] Proof Technician: Dexter Fried MD #### LIPR #### [facility] [address] [place] [address] Proof Technician: Dash Porter [id number] Coag (Bld) [Time]s Critically high23.9-33.8[facility] HospitalComment on above:Result Comment: IV Heparin Therapy Range: 62.0-94.0 TEST CONFIRMEDPerformed By: #### CBC, HEPXA, CMPX, MG, TSHX, TROPI #### [facility] [address] [place] [address] Proof Technician: Dexter Fried MD #### LIPR #### [address] [phone] Proof Technician: Diego Porter Coag (Bld) [Time]25.9 uQzfxsa57.9-33.8[facility] HospitalComveterans affairs medical center on above:Result Comment: IV Heparin Therapy Range: 62.0-94.0Performed By: #### CBC, HEPXA, CMPX, MG, TSHX, TROPI #### [facility] [address] [place] [address] [phone] Proof Technician: Dexter Fried MD #### LIPR #### [address] [phone] Proof Technician: Diego Porter Coag (Bld) [Time]sCritically highCleveland Clinic Mentor HospitalComveterans affairs medical center on above: IV Heparin Therapy Range: 62.0-94.0 TEST CONFIRMED Interpretation and review of laboratory resultsAbnormalWisconsin Heart Hospital– [facility] Anti-Xa, Unfractionated Heparinon [id number]-XA Unfrac Heparin0.5[facility]– WauwatosaCBCon 14-11-9953Amryosuhyer distribution width (RBC) [Ratio] 14.8 %High11.8-14.4[facility] HospitalComment on above:Performed By: #### CBC, HEPXA, CMPX, MG, TSHX, TROPI #### [facility] [address] [place] [address] [phone] Proof Technician: Dexter Fried MD #### LIPR #### [address] [phone] Proof Technician: Paco Tatum MDHematocrit (Bld) [Volume fraction]33.3 %Low 36.3-47.1MSwedish Medical Center IssaquahComment on above:Performed By: #### CBC, HEPXA, CMPX, MG, TSHX, TROPI #### [facility] [address] [place] [address] Proof Technician: Dexter Fried MD #### LIPR #### [address] [address] Proof Technician: Paco Tatum MDHemoglobin (Bld) [Mass/Vol]10.2 g/dLLow11.9-15.1 [facility] HospitalComment on above:Performed By: #### CBC, HEPXA, CMPX, MG, TSHX, TROPI #### [facility] [address] [place] [address] Proof Technician: Dexter Fried MD #### LIPR #### [address] [address] Proof Technician: OCTAVIA PorterCH (RBC) [Entitic mass]26.4 cqKdmezs42.2-33.5 [facility] HospitalComment on above:Performed By: #### CBC, HEPXA, CMPX, MG, TSHX, TROPI #### [facility] [address] [place] [address] Proof Technician: Dexter Fried MD #### LIPR #### [address] [address] Proof Technician: AMIRA PorterC (RBC) [Mass/Vol]30.6 g/lDAclbjv59.4-34.8 [facility] HospitalComment on above:Performed By: #### CBC, HEPXA, CMPX, MG, TSHX, TROPI #### [facility] [address] [place] [address] Proof Technician: Dexter Fried MD #### LIPR #### [address] [address] Proof Technician: OCTAVIA PorterCV (RBC) [Entitic vol]86.3 qFGwykwy44.6-102.9 [facility] on above:Performed By: #### CBC, HEPXA, CMPX, MG, TSHX, TROPI #### [facility] [address] [place] [address] Proof Technician: Dexter Fried MD #### LIPR #### [address] [address] Proof Technician: Paco Tatum MDNRBC Automated0.0 per 100 WBCNormal0.0[facility] on above:Performed By: #### CBC, HEPXA, CMPX, MG, TSHX, TROPI #### [facility] [address] [place] [address] Proof Technician: Dexter Fried MD #### LIPR #### [address] [address] Proof Technician: Keysha Porter mean volume (Bld) [Entitic vol]8.9 fL Normal8.1-13.5[facility] on above:Performed By: #### CBC, HEPXA, CMPX, MG, TSHX, TROPI #### [facility] [address] [place] [address] Proof Technician: Dexter Fried MD #### LIPR #### [address] [address] Proof Technician: Jason Porter (Bld) [#/Vol]314 10*3/tNXdxsnw588-617 [facility] HospitalComveterans affairs medical center on above:Performed By: #### CBC, HEPXA, CMPX, MG, TSHX, TROPI #### [facility] [address] [place] [address] Proof Technician: Dexter Fried MD #### LIPR #### [address] [address] Proof Technician: PATRICIA Porter (Bld) [#/Vol]3.86 10*6/uLLow3.95-5.11[facility] HospitalComveterans affairs medical center on above:Performed By: #### CBC, HEPXA, CMPX, MG, TSHX, TROPI #### [facility] [address] [place] [address] Proof Technician: Dexter Fried MD #### LIPR #### [address] [address] Proof Technician: Paco Tatum MDELMIRA PSYCH[facility]ATRIC C[facility] (Bld) [#/Vol]10.0 10*3/uLNormal3.5-11.3[facility] on above:Performed By: #### CBC, HEPXA, CMPX, MG, TSHX, TROPI #### [facility] [address] [place] [address] Proof Technician: Dexter Fried MD #### LIPR #### [address] [address] Proof Technician: Paco Tatum MDHematocrit (Bld) [Volume fraction]33.3 %Low36.3 - 47.1 %[facility] HospitalHemoglobin.gastrointestinal spec 1 Ql (Stl)10.2 g/dLLow11.9 - 15.1 g/dLCleveland Clinic Mentor HospitalInterpretation and review of laboratory resultsAbnormal [facility] HealthM[facility] (RBC) [Entitic mass]26.4 pg25.2 - 33.5 pgPomerene HospitalHC (RBC) [Mass/Vol]30.6 g/dL28.4 - 34.8 g/dLPomerene HospitalV (RBC) [Entitic vol]86.3 fL 82.6 - 102.9 fLCleveland Clinic Mentor HospitalNRBC Automated0.00.0 per 100 WBCCleveland Clinic Mentor HospitalPlatelet distribution width (Bld) [Ratio]14.8 %High11.8 - 14.4 %[facility] HospitalPlatelet mean volume (Bld) [Entitic vol]8.9 fL8.1 - 13.5 fLHocking Valley Community Hospital HealthPlatelets (Bld) [#/Vol]314 10*3/uLCleveland Clinic Mentor HospitalRBC (Bld) [#/Vol]3.86 10*6/uLLow3.95 - 5.11 m/uL [facility] HospitalWBC (Bld) [#/Vol]10.0 10*3/uLKettering Health Behavioral Medical Center HealthErythrocyte distribution width (RBC) [Ratio]14.8 %High11.8-14.4[facility] Comment on above:Performed By: #### PT, TROPI, PTT, CBC #### [facility] [address] [place] [address] Proof Technician: Dexter Fried MDHematocrit (Bld) [Volume fraction]33.6 %Low 36.3-47.1[facility] HospitalComment on above:Performed By: #### PT, TROPI, PTT, CBC #### [facility] [address] [place] [address] Proof Technician: Dexter Fried MDHemoglobin (Bld) [Mass/Vol]10.4 g/dLLow 11.9-15.1[facility] HospitalComment on above:Performed By: #### PT, TROPI, PTT, CBC #### [facility] [address] [place] [address] Proof Technician: AMIRA Herrera (RBC) [Entitic mass]26.7 vjBtthdy60.2-33.5 [facility] on above:Performed By: #### PT, TROPI, PTT, CBC #### [facility] [address] [facility] [address] Proof Technician: AMIRA HerreraC (RBC) [Mass/Vol]31.0 g/jUOijjya31.4-34.8 [facility] on above:Performed By: #### PT, TROPI, PTT, CBC #### [facility] [address] [place] [address]. [place] [address] Proof Technician: AYAKA Herrera (RBC) [Entitic vol]86.2 vOCxfzti79.6-102.9 [facility] on above:Performed By: #### PT, TROPI, PTT, CBC #### [facility] [facility] [address] Proof Technician: DONALD Herrera Automated0.0 per 100 WBCNormal0.0[facility] on above:Performed By: #### PT, TROPI, PTT, CBC #### [facility] [address] [place] [address]. [place] [address] Proof Technician: Keysha Herrera mean volume (Bld) [Entitic vol]9.1 fL Normal8.1-13.5[facility] on above:Performed By: #### PT, TROPI, PTT, CBC #### [facility] [address] [place] [address]. [place] [address] Proof Technician: Jason Herrera (Bld) [#/Vol]342 10*3/cIIlbxxf082-332 [facility] HospitalComment on above:Performed By: #### PT, TROPI, PTT, CBC #### [facility] [address] [facility] [place] [address] Proof Technician: PATRICIA Herrera (Bld) [#/Vol]3.90 10*6/uLLow3.95-5.11[facility] HospitalComveterans affairs medical center on above:Performed By: #### PT, TROPI, PTT, CBC #### [facility] [address] [facility] [address] Proof Technician: BREEZY Herrera (Bld) [#/Vol]10.4 10*3/uLNormal3.5-11.3 [facility] HospitalComveterans affairs medical center on above:Performed By: #### PT, TROPI, PTT, CBC #### [facility] [address] [place] [address]. [place] [address] Proof Technician: Dexter Fried MDHematocrit (Bld) [Volume fraction]33.6 %Low36.3 - 47.1 %[facility] HospitalHemoglobin.gastrointestinal spec 1 Ql (Stl)10.4 g/dLLow11.9 - 15.1 g/dLCleveland Clinic Mentor HospitalInterpretation and review of laboratory resultsAbnormal [facility] (RBC) [Entitic mass]26.7 pg25.2 - 33.5 pgPomerene HospitalHC (RBC) [Mass/Vol]31.0 g/dL28.4 - 34.8 g/dLPomerene HospitalV (RBC) [Entitic vol]86.2 fL 82.6 - 102.9 fLCleveland Clinic Mentor HospitalNRBC Automated0.00.0 per 100 WBCCleveland Clinic Mentor HospitalPlatelet distribution width (Bld) [Ratio]14.8 %High11.8 - 14.4 %[facility] HospitalPlatelet mean volume (Bld) [Entitic vol]9.1 fL8.1 - 13.5 fLHocking Valley Community Hospital HealthPlatelets (Bld) [#/Vol]342 10*3/uLCleveland Clinic Mentor HospitalRBC (Bld) [#/Vol]3.90 10*6/uLLow3.95 - 5.11 m/uL [facility] ([facility]) [#/Vol]10.4 10*3/[facility] CenterCT CHEST PULMONARY EMBOLISM W CONTRASTon [id number] CHEST PULMONARY EMBOLISM W CONTRAST EXAMINATION: CTA [...] were called by Dr. Ernie Gamino to RN RECRUITMENT Bandar Vaughan on 11/30/2021 at 10:54 p.m. hours. RECOMMENDATIONS: 1.3 cm incidental right thyroid nodule with heterogeneous and enlarged thyroid. Recommend thyroid US. Reference: J Am Sukhjinder Radiol. 2015 Oct;12(2): 143-50 Interpreted by: Ernie Gamino DO Signed by: Ernei Gamino DO 11/30/21 Final resultNormalBarnesville Hospital Metabolic Pr/rfx MGon 12-01-2021 (cont.)NormalAccess Hospital [facility] on above:Result Comment: Average GFR for 20-29 years old: 116 mL/min/1.73sq m Chronic Kidney Disease: <60 mL/min/1.73sq m Kidney failure: <15 mL/min/1.73sq m eGFR calculated using average adult body mass. Additional eGFR calculator available at: http://www.Lessno.HydroLogex/multiple_crcl_2012.htmPerformed By: #### CBC, HEPXA, CMPX, MG, TSHX, TROPI #### [facility] [address] [place] [address] Proof Technician: Dexter Fried MD #### LIPR #### [facility] [employer] [address] [place] [address] [phone] Proof Technician: Clovis Porterbumin [Mass/Vol]3.4 g/dLLow3.5-5.2[facility] HospitalComment on above:Performed By: #### CBC, HEPXA, CMPX, MG, TSHX, TROPI #### [facility] [address] [place], [place] [phone] Proof Technician: Dexter Fried MD #### LIPR #### [facility] [employer] [address] [place] [address] [phone] Proof Technician: Paco Madoff, MDAlkaline Phos93 U/LXdqonr45-312ImokoCleveland Clinic Marymount HospitalComveterans affairs medical center on above:Performed By: #### CBC, HEPXA, CMPX, MG, TSHX, TROPI #### [facility] [address] [place] [address] Proof Technician: Dexter Fried MD #### LIPR #### [address] [address] Proof Technician: Paco Tatum MDALT [Catalytic activity/Vol]28 U/LNormal5-33 [facility] HospitalComveterans affairs medical center on above:Performed By: #### CBC, HEPXA, CMPX, MG, TSHX, TROPI #### [facility] [address] [place] [address] Proof Technician: Dexter Fried MD #### LIPR #### [address] [address] Proof Technician: Flynn Porter gap [Moles/Vol]7 mmol/LLow9-17[facility] HospitalComveterans affairs medical center on above:Performed By: #### CBC, HEPXA, CMPX, MG, TSHX, TROPI #### [facility] [address] [place] [address] Proof Technician: Dexter Fried MD #### LIPR #### [address] [address] Proof Technician: Paco Tatum MDAST [Catalytic activity/Vol]16 U/LNormal<32[facility] HospitalComveterans affairs medical center on above:Performed By: #### CBC, HEPXA, CMPX, MG, TSHX, TROPI #### [facility] [address] [place] [address] Proof Technician: Dexter Fried MD #### LIPR #### [address] [address] Proof Technician: Paco Tatum MDBilirubin [Mass/Vol]0.18 mg/dLLow0.3-1.2MSwedish Medical Center IssaquahComment on above:Performed By: #### CBC, HEPXA, CMPX, MG, TSHX, TROPI #### [facility] [address] [place] [address] Proof Technician: Dexter Fried MD #### LIPR #### [address] [address] Proof Technician: Paco Tatum MDBUN/CRE [id number] [place] [address] Comment on above:Performed By: #### CBC, HEPXA, CMPX, MG, TSHX, TROPI #### [facility] [address] [place] [address] Proof Technician: Dexter Fried MD #### LIPR #### [address] [address] Proof Technician: CELESTE Porteralcium [Mass/Vol]8.5 mg/dLLow8.6-10.4[facility] HospitalComment on above:Performed By: #### CBC, HEPXA, CMPX, MG, TSHX, TROPI #### [facility] [address] [place] [address] Proof Technician: Dexter Fried MD #### LIPR #### [address] [address] Proof Technician: CELESTE Porterhloride [Moles/Vol]105 mmol/NVscpct68-075GeooiCleveland Clinic Marymount HospitalComment on above:Performed By: #### CBC, HEPXA, CMPX, MG, TSHX, TROPI #### [facility] [address] [place] [address] Proof Technician: Dexter Fried MD #### LIPR #### [address] [address] Proof Technician: Paco Tatum MDCO2 [Moles/Vol]25 mmol/UWvvygq55-34KbuucColumbia Basin HospitalComveterans affairs medical center on above:Performed By: #### CBC, HEPXA, CMPX, MG, TSHX, TROPI #### [facility] [address] [place] [address] Proof Technician: Dexter Fried MD #### LIPR #### [address] [address] Proof Technician: CELESTE Porterreatinine [Mass/Vol]0.61 mg/dLNormal0.50-0.90 [facility] HospitalComveterans affairs medical center on above:Performed By: #### CBC, HEPXA, CMPX, MG, TSHX, TROPI #### [facility] [address] [place] [address] Proof Technician: Dexter Fried MD #### LIPR #### [address] [address] Proof Technician: Paco Tatum MDGFR, Amer>60Normal>60[facility] HospitalComveterans affairs medical center on above:Performed By: #### CBC, HEPXA, CMPX, MG, TSHX, TROPI #### [facility] [place] [address] Proof Technician: Dexter Fried MD #### LIPR #### [address] [address] Proof Technician: Paco Tatum MDGFR,non Amer>60Normal>60[facility] HospitalComveterans affairs medical center on above:Performed By: #### CBC, HEPXA, CMPX, MG, TSHX, TROPI #### [facility] [address] [place] [phone] Proof Technician: Dexter Fried MD #### LIPR #### [address] [address] Proof Technician: Paco Tatum MDGlucose [Mass/Vol]90 mg/hFYivtkf70-34PgqhqSwedish Medical Center IssaquahComveterans affairs medical center on above:Performed By: #### CBC, HEPXA, CMPX, MG, TSHX, TROPI #### [facility] [address] [place] [address] Proof Technician: Dexter Fried MD #### LIPR #### [address] [address] Proof Technician: Paco Tatum MDPotassium [Moles/Vol]4.0 mmol/LNormal3.7-5.3 [facility] on above:Performed By: #### CBC, HEPXA, CMPX, MG, TSHX, TROPI #### [facility] [address] [place] [phone] Proof Technician: Dexter Fried MD #### LIPR #### [address] [address] Proof Technician: Paco Tatum MDProtein [Mass/Vol]6.3 g/dLLow6.4-8.3MGalion Hospital on above:Performed By: #### CBC, HEPXA, CMPX, MG, TSHX, TROPI #### [facility] [address] [place] [address] Proof Technician: Dexter Fried MD #### LIPR #### [address] [place] [address] Proof Technician: KELLY Porterodium [Moles/Vol]137 mmol/FLyduhy656-234IevncCleveland Clinic Marymount HospitalComveterans affairs medical center on above:Performed By: #### CBC, HEPXA, CMPX, MG, TSHX, TROPI #### [facility] [address] [place] [address] Proof Technician: Dexter Fried MD #### LIPR #### [address] [address] Proof Technician: Paco Tatum MDUrea nitrogen [Mass/Vol]13 mg/dLNormal6-20[facility] HospitalComveterans affairs medical center on above:Performed By: #### CBC, HEPXA, CMPX, MG, TSHX, TROPI #### [facility] [address] [place] [address] Proof Technician: Dexter Fried MD #### LIPR #### [address] [address] Proof Technician: CELESTE Porteromprehensive Metabolic Panel w/ Reflex to MGon 75-75-1394Fsmqnhw [Mass/Vol]3.4 g/dLLow3.5 - 5.2 g/dLMercy HealthALP (Bld) [Catalytic activity/Vol]93 U/L35 - 104 U/LMercy HealthALT [Catalytic activity/Vol]28 U/L5 - 33 U/LMercy HealthAnion gap [Moles/Vol]7 mmol/LLow9 - 17 mmol/LMercy HealthAST [Catalytic activity/Vol]16 U/L<32Mercy HealthBilirubin [Mass/Vol]0.18 mg/dLLow0.3 - 1.2 mg/dLMercy HealthCalcium [Mass/Vol]8.5 mg/dLLow 8.6 - 10.4 mg/dLMercy HealthChloride [Moles/Vol]105 mmol/L98 - 107 mmol/LMercy HealthCO2 [Moles/Vol]25 mmol/L20 - 31 mmol/LMercy HealthCreatinine [Mass/Vol] 0.61 mg/dL0.50 - 0.90 mg/dLCleveland Clinic Mentor HospitalFree PSA/Total PSA [Mass fraction]6.3 g/dLLow6.4 - 8.3 g/dLCleveland Clinic Mentor HospitalGFR >60>60 mL/minCleveland Clinic Mentor Hospital GFR Non->60>60 mL/minHocking Valley Community Hospital HealthGFR/1.73 sq M.predicted MDRD (S/P/Bld) [Vol rate/Area][facility] HospitalComment on above:Average GFR for 20-29 years old: 116 mL/min/1.73sq m Chronic Kidney Disease: <60 mL/min/1.73sq m Kidney failure: <15 mL/min/1.73sq m eGFR calculated using average adult body mass. Additional eGFR calculator available at: http://www.Milk/multiple_crcl_2011.htm Glucose [Mass/Vol]90 mg/dL70 - 99 mg/dLHocking Valley Community Hospital HealthInterpretation and review of laboratory resultsAbnormalHocking Valley Community Hospital HealthPotassium [Moles/Vol]4.0 mmol/L3.7 - 5.3 mmol/LMercy HealthSodium [Moles/Vol]137 mmol/L135 - 144 mmol/LMercy HealthUrea nitrogen (BldV) [Mass/Vol]13 mg/dL6 - 20 mg/dLHocking Valley Community Hospital HealthUrea nitrogen/Creatinine (Bld) [Mass ratio]21HighCleveland Clinic Mentor HospitalEchocardiogram 2D W M-Modeon [id number] LAKE [facility] Transthoracic Echocardiography Report (TTE) Patient Name MILLIE Date of Study 12/01/2021 SHIRA Date of 1995 Gender Female Age 26 year(s) Race Room Number 2041 Height: 61 inch, 154.94 cm Corporate ID [id number] Weight: 279 pounds, 126.6 kg # Patient Acct [id number] BSA: 2.18 m^2 BMI: 52.72 # kg/m^2 MR # [id number] 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 Procedure Date Date: 12/01/2021 Start: 02:19 PM Study Location: [facility] Technical Quality: Adequate visualization Indications:Pulmonary embolus. 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 Procedure Date Date: 12/01/2021 Start: 02:19 PM Study Location: [facility] Technical Quality: Adequate visualization Indications:Pulmonary embolus. [...] velocity:0.09 m/s Lateral Wall E' velocity:0.13 m/sMercy e(ye)BRAIN Work Phone: echocardiogram 2D W M-ModeOrdered By: Mata Mar on [id number] e(ye)BRAIN Work Phone: Heparin Anti-Xaon 81-10-3029Zobnudo Anti-Xa0.50 IU/L Normal0.30-0.70[facility] on above:Performed By: #### CBC, HEPXA, CMPX, MG, TSHX, TROPI #### [facility] [address] [place] [address] Proof Technician: Dexter Fried MD #### LIPR #### [address] [phone] Proof Technician: Paco Tatum MDLipid Profileon [id number] [Mass/Vol] 217 mg/dLHigh<200[facility] on above:Result Comment: Cholesterol Guidelines: <200 Desirable 200-240 Borderline >240 UndesirablePerformed By: #### CBC, HEPXA, CMPX, MG, TSHX, TROPI #### [facility] [address] [place] [phone] Proof Technician: Dexter Fried MD #### LIPR #### [facility] [employer] [address] [place] [address] [phone] Proof Technician: CELESTE Porterholesterol in HDL [Mass/Vol]49 mg/dLNormal>40 [facility] on above:Result Comment: HDL Guidelines: <40 Undesirable 40-59 Borderline >59 DesirablePerformed By: #### CBC, HEPXA, CMPX, MG, TSHX, TROPI #### [facility] [address] [place] [address] Proof Technician: Dexter Fried MD #### LIPR #### [address] [phone] Proof Technician: CELESTE Porterholesterol in LDL [Mass/Vol]112 mg/dLNormal 0-130[facility] HospitalComment on above:Result Comment: LDL Guidelines: <100 Desirable 100-129 Near to/above Desirable 130-159 Borderline >159 Undesirable Direct (measured) LDL and calculated LDL are not interchangeable tests.Performed By: #### CBC, HEPXA, CMPX, MG, TSHX, TROPI #### [facility] [address] [place] [address] Proof Technician: Dexter Fried MD #### LIPR #### [facility] [employer] [address] [place] [address] [phone] Proof Technician: CELESTE Porterholesmith.total/Cholesterol in HDL [Mass ratio]4.4 {ratio}Normal<5[facility] HospitalComveterans affairs medical center on above:Performed By: #### CBC, HEPXA, CMPX, MG, TSHX, TROPI #### [facility] [address] [place] [address] Proof Technician: Dexter Fried MD #### LIPR #### [facility] [employer] [address] [place] [address] Proof Technician: Paco Tatum MDTriglyceride [Mass/Vol]281 mg/dLHigh<150Mer[facility] HospitalComveterans affairs medical center on above:Result Comment: Triglyceride Guidelines: <150 Desirable 150-199 Borderline 200-499 High >499 Very high Based on AHA Guidelines for fasting triglyceride, June 2012.Performed By: #### CBC, HEPXA, CMPX, MG, TSHX, TROPI #### [facility] [place] [address] Proof Technician: Dexter Fried MD #### LIPR #### [employer] [address] [place] [phone] Proof Technician: Paco Tatum MDLipid panel - fastingon 95-18-8887Rhopoqwrlla [Mass/Vol]217 mg/dLHigh<200[facility] Ment[facility] HospitalComment on above: Cholesterol Guidelines: <200 Desirable 200-240 Borderline >240 Undesirable Cholesterol in HDL [Mass/Vol]49 mg/dL>40C[facility] Ment[facility] HospitalComment on above: HDL Guidelines: <40 Undesirable 40-59 Borderline >59 Desirable Cholesterol in LDL [Mass/Vol]112 mg/dL0 - 130 mg/dLCleveland Clinic Mentor HospitalComment on above: LDL Guidelines: <100 Desirable 100-129 Near to/above Desirable 130-159 Borderline >159 Undesirable Direct (measured) LDL and calculated LDL are not interchangeable tests. Cholesterol.total/Cholesterol in HDL [Mass ratio]4.4 {ratio}<5[facility] Interpretation and review of laboratory resultsAbnormalCleveland Clinic Mentor HospitalTriglyceride [Mass/Vol]281 mg/dLHigh<150C[facility] HospitalComment on above: Triglyceride Guidelines: <150 Desirable 150-199 Borderline 200-499 High >499 Very high Based on AHA Guidelines for fasting triglyceride, June 2012. [facility] HospitalMagnesiumon [id number] [Mass/Vol]1.9 mg/dLNormal1.6-2.6 [facility] HospitalComment on above:Performed By: #### CBC, HEPXA, CMPX, MG, TSHX, TROPI #### [facility] [address] [place] [address] Proof Technician: Dexter Fried MD #### LIPR #### [facility] [address] [place], [place] [phone] Proof Technician: Paco Tatum MDMagnesium [Mass/Vol]1.9 mg/dL1.6 - 2.6 mg/dL [facility] HospitalNo Panel Informationon 48-19-3211GpiyaUpland Hills Health Glucose Fingerstickon 40-67-7760Fpwbtmr [Mass/Vol]91 mg/dL65 - 105 mg/dLThedaCare Regional Medical Center–Neenah 74-74-4276RER Coag (PPP) [Relative time]1.3 {INR}NormalCleveland Clinic Marymount HospitalComment on above:Result Comment: Non-therapeutic Range: INR = 0.9-1.2 Therapeutic Range: Moderate Anticoagulant Intensity: INR = 2.0-3.0 High Anticoagulant Intensity: INR = 2.5-3.5Performed By: #### CBC, HEPXA, CMPX, MG, TSHX, TROPI #### [facility] [address] [place] [address] Proof Technician: Dexter Fried MD #### LIPR #### [address] [address] Proof Technician: NAT Porter Coag (PPP) [Time]16.0 sHigh11.5-14.2MGalion Hospital on above:Performed By: #### CBC, HEPXA, CMPX, MG, TSHX, TROPI #### [facility] [address] [place] [address] Proof Technician: Dexter Fried MD #### LIPR #### [address] [address] Proof Technician: ADRIANE PorterR Coag (PPP) [Relative time]1.1 {INR}Normal [facility] HospitalComveterans affairs medical center on above:Result Comment: Non-therapeutic Range: INR = 0.9-1.2 Therapeutic Range: Moderate Anticoagulant Intensity: INR = 2.0-3.0 High Anticoagulant Intensity: INR = 2.5-3.5Performed By: #### CBC, HEPXA, CMPX, MG, TSHX, TROPI #### [facility] [address] [place] [address] Proof Technician: Dexter Fried MD #### LIPR #### [place] [address] Proof Technician: NAT Porter Coag (PPP) [Time]14.0 xXrgnem07.5-14.2MSwedish Medical Center IssaquahComment on above:Performed By: #### CBC, HEPXA, CMPX, MG, TSHX, TROPI #### [facility] [address] [place] [address] Proof Technician: Dexter Fried MD #### LIPR #### [address] [address] Proof Technician: RAHUL Porterrot. Electrophoresis, Uron [id number] Protein Conc.15 mg/dLNormalCleveland Clinic Marymount HospitalComment on above:Performed By: #### CBC, HEPXA, CMPX, MG, TSHX, TROPI #### [facility] [address] [place] [phone] Proof Technician: Dexter Fried MD #### LIPR #### [address] [address] Proof Technician: RAHUL Porterrotein / creatinine ratio, urineon 12-01-2021 Creatinine, Ur96.1 mg/dL28.0 - 217.0 mg/dLHocking Valley Community Hospital HealthProtein (U) [Mass/Vol]15 mg/dLCleveland Clinic Mentor HospitalComment on above:No normal range established.Urine Total Protein Creatinine Ratio0.16MerAtrium Health HealthProtein,Tot,[place] Uron 87-34-3819Cquhdwtplu [Mass/Vol]96.1 mg/pZJfbpyx25.0-217.0[facility] Comment on above:Performed By: #### CBC, HEPXA, CMPX, MG, TSHX, TROPI #### [facility] [address] [place] [address] Proof Technician: Dexter Fried MD #### LIPR #### [address] [address] Proof Technician: Paco Tatum MDTot Prot. Conc.15 mg/dLNormalCleveland Clinic Marymount HospitalComment on above:Result Comment: No normal range established.Performed By: #### CBC, HEPXA, CMPX, MG, TSHX, TROPI #### [facility] [address] [place] [phone] Proof Technician: Dexter Fried MD #### LIPR #### [address] [phone] Proof Technician: Paco Tatum MDTP/Cre Ratio0.50Akspmc9.00-0.20[facility] HospitalComveterans affairs medical center on above:Performed By: #### CBC, HEPXA, CMPX, MG, TSHX, TROPI #### [facility] [address] [place] [address] [phone] Proof Technician: Dexter Fried MD #### LIPR #### [address] [phone] Proof Technician: RAHUL Porterrotime-INRon 06-32-0640RCU Coag (Bld) [Relative time]1.3 {INR}[facility] on above: Non-therapeutic Range: INR = 0.9-1.2 Therapeutic Range: Moderate Anticoagulant Intensity: INR = 2.0-3.0 High Anticoagulant Intensity: INR = 2.5-3.5 Interpretation and review of laboratory resultsAbPremier Health Atrium Medical Center Coag (PPP) [Time]16 [facility] w/reflex to FT4on [id number] Qn2.20 m[IU]/LNormal0.30-5.00[facility] on above:Performed By: #### CBC, HEPXA, CMPX, MG, TSHX, TROPI #### [facility] [address] [place] [address] Proof Technician: Dexter Fried MD #### LIPR #### [address] [phone] Proof Technician: Paco Tatum MDWAYS[facility] Qn2.20 m[IU]/[facility] Hospitaloporamirez 69-58-3085Svpszxtn, High Sens<5Rmzcjf0-73Yjabb [facility] on above:Result Comment: High Sensitivity Troponin values cannot be compared with other Troponin methodologies. Patients with high levels of Biotin oral intake (i.e >5mg/day) may have falsely decreased Troponin levels. Samples collected within 8 hours of biotin intake may require additional information for diagnosis.Performed By: #### CBC, HEPXA, CMPX, MG, TSHX, TROPI #### [facility] [address] [place], [place] [phone] Proof Technician: Dexter Fried MD #### LIPR #### [facility] [employer] [address] [place] [address] [phone] Proof Technician: Yuri Porter, High Sensitivity<60 - 14 ng/Paulding County HospitalComveterans affairs medical center on above: High Sensitivity Troponin values cannot be compared with other Troponin methodologies. Patients with high levels of Biotin oral intake (i.e >5mg/day) may have falsely decreased Troponin levels. Samples collected within 8 hours of biotin intake may require additional information for diagnosis. Troponin, High Sens<8Nlzcfq4-10QpontColumbia Basin HospitalComveterans affairs medical center on above:Result Comment: High Sensitivity Troponin values cannot be compared with other Troponin methodologies. Patients with high levels of Biotin oral intake (i.e >5mg/day) may have falsely decreased Troponin levels. Samples collected within 8 hours of biotin intake may require additional information for diagnosis.Performed By: #### CBC, HEPXA, CMPX, MG, TSHX, TROPI #### [facility] [address] [place], [place] [phone] Proof Technician: Dexter Fried MD #### LIPR #### [employer] [address] [place] [address] [phone] Proof Technician: Yuri Porter, High Sensitivity<60 - 14 ng/LMOhioHealth Shelby Hospital on above: High Sensitivity Troponin values cannot be compared with other Troponin methodologies. Patients with high levels of Biotin oral intake (i.e >5mg/day) may have falsely decreased Troponin levels. Samples collected within 8 hours of biotin intake may require additional information for diagnosis. [facility] HospitalTroponin, High Sens<7Zdrcne9-02PpwzuAstria Regional Medical Center on above:Result Comment: High Sensitivity Troponin values cannot be compared with other Troponin methodologies. Patients with high levels of Biotin oral intake (i.e >5mg/day) may have falsely decreased Troponin levels. Samples collected within 8 hours of biotin intake may require additional information for diagnosis.Performed By: #### CBC, HEPXA, CMPX, MG, TSHX, TROPI #### [facility] [address] [place] [address] Proof Technician: Dexter Fried MD #### LIPR #### [address] [phone] Proof Technician: Dash Porter [id number] Coag (Bld) [Time]25.9 s [facility] on above: IV Heparin Therapy Range: 62.0-94.0 [facility] Natri. Peptideon 80-06-8826Wsyiqhwpfqs peptide B (Bld) [Mass/Vol]31 pg/mLNormal<300MerColumbia Basin HospitalComveterans affairs medical center on above:Result Comment: An age-independent cutoff point of 300 pg/ml has a 98% negative predictive value excluding acute heart failure.Performed By: #### CBC, HEPXA, CMPX, MG, TSHX, TROPI #### [facility] [address] [place] [address] Proof Technician: Dexter Fried MD #### LIPR #### [place] [address] [place] [address] Proof Technician: Paco Tatum MDBrain Natriuretic Peptideon 11-30-2021 Natriuretic peptide B (Bld) [Mass/Vol]31 pg/mL<300C[facility] HospitalComment on above: An age-independent cutoff point of 300 pg/ml has a 98% negative predictive value excluding acute heart failure. CBC with Auto Differentialon [id number] Eos #0.22MerTri-State Memorial HospitalAbsolute Immature Granulocyte0.11[facility] HospitalAbsolute Lymph #2.99MercSouthside Regional Medical CenterAbsolute [place] #0.61[facility] HospitalBasophils (Bld) [#/Vol]0.08 10*3/uLCleveland Clinic Mentor Hospital Basophils/100 WBC (Bld)1 %0 - 2 %[facility] HospitalEosinophils/100 WBC (Bld)2 %1 - 4 % [facility] HospitalHematocrit (Bld) [Volume fraction]35.0 %Low36.3 - 47.1 %[facility] Hemoglobin.gastrointestinal spec 1 Ql (Stl)10.8 g/dLLow11.9 - 15.1 g/dLCleveland Clinic Mentor HospitalImmature granulocytes/100 WBC (Bld)1 %Anzy5FarnbCleveland Clinic Mentor HospitalInterpretation and review of laboratory resultsAbnormalCleveland Clinic Mentor HospitalLymphocytes/100 WBC (Bld)29 %24 - 43 %Pomerene HospitalH (RBC) [Entitic mass]26.6 pg25.2 - 33.5 pgPomerene HospitalHC (RBC) [Mass/Vol]30.9 g/dL28.4 - 34.8 g/dLPomerene HospitalV (RBC) [Entitic vol]86.2 fL82.6 - 102.9 fLCleveland Clinic Mentor HospitalMonocytes/100 WBC (Bld)6 %3 - 12 %[facility] HospitalNRBC Automated0.00.0 per 100 WBCCleveland Clinic Mentor HospitalPlatelet distribution width (Bld) [Ratio] 14.8 %High11.8 - 14.4 %[facility] HospitalPlatelet mean volume (Bld) [Entitic vol]9.1 fL8.1 - 13.5 fLHocking Valley Community Hospital HealthPlatelets (Bld) [#/Vol]351 10*3/uLCleveland Clinic Mentor HospitalRBC (Bld) [#/Vol]4.06 10*6/uL3.95 - 5.11 m/uLCleveland Clinic Mentor HospitalRBC (Bld) [#/Vol] ANISOCYTOSIS PRESENTAultman Hospital neutrophils/100 WBC (Bld)61 %36 - 65 % [facility] Absolute6.17[facility] HospitalWBC (Bld) [#/Vol]10.2 10*3/uLAurora Medical Center– Burlington with Diffon 45-93-2845Vnf. Basophil0.08 k/uLNormal 0.00-0.20[facility] HospitalComment on above:Performed By: #### CBC, HEPXA, CMPX, MG, TSHX, TROPI #### [facility] [address] [place] [address] Proof Technician: Dexter Fried MD #### LIPR #### [address] [address] Proof Technician: Khadra Porter.Imm.Granulocyte0.11 k/uLNormal0.00-0.30[facility] HospitalComment on above:Performed By: #### CBC, HEPXA, CMPX, MG, TSHX, TROPI #### [facility] [address] [place] [phone] Proof Technician: Dexter Fried MD #### LIPR #### [address] [address] Proof Technician: Khadra Porter.Neutrophil (Seg)6.17 k/uLNormal1.50-8.10 [facility] on above:Performed By: #### CBC, HEPXA, CMPX, MG, TSHX, TROPI #### [facility] [address] [place] [address] Proof Technician: Dexter Fried MD #### LIPR #### [address] [address] Proof Technician: Paco Tatum MDBasophils/100 WBC (Bld)1 %Normal0-2Mlutheran hospitaly [facility] HospitalComment on above:Performed By: #### CBC, HEPXA, CMPX, MG, TSHX, TROPI #### [facility] [address] [place] [phone] Proof Technician: Dexter Fried MD #### LIPR #### [address] [address] Proof Technician: Paco Tatum MDEosinophils (Bld) [#/Vol]0.22 10*3/uLNormal 0.00-0.44[facility] HospitalComment on above:Performed By: #### CBC, HEPXA, CMPX, MG, TSHX, TROPI #### [facility] [address] [place] [address] Proof Technician: Dexter Fried MD #### LIPR #### [address] [address] Proof Technician: Paco Tatum MDEosinophils/100 WBC (Bld)2 %Normal1-4[facility] HospitalComment on above:Performed By: #### CBC, HEPXA, CMPX, MG, TSHX, TROPI #### [facility] [address] [place] [phone] Proof Technician: Dexter Fried MD #### LIPR #### [address] [address] Proof Technician: Paco Tatum MDErythrocyte distribution width (RBC) [Ratio]14.8 %High11.8-14.4[facility] HospitalComment on above:Performed By: #### CBC, HEPXA, CMPX, MG, TSHX, TROPI #### [facility] [address] [place] [phone] Proof Technician: Dexter Fried MD #### LIPR #### [address] [address] Proof Technician: Paco Tatum MDHematocrit (Bld) [Volume fraction]35.0 %Low 36.3-47.1[facility] on above:Performed By: #### CBC, HEPXA, CMPX, MG, TSHX, TROPI #### [facility] [address] [place] [phone] Proof Technician: Dexter Fried MD #### LIPR #### [address] [address] Proof Technician: Paco Tatum MDHemoglobin (Bld) [Mass/Vol]10.8 g/dLLow11.9-15.1 [facility] on above:Performed By: #### CBC, HEPXA, CMPX, MG, TSHX, TROPI #### [facility] [address] [place] [address] Proof Technician: Dexter Fried MD #### LIPR #### [address] [address] Proof Technician: Paco Tatum MDImmature granulocytes/100 WBC (Bld)1 %Tnru7JbmkkAstria Regional Medical Center on above:Performed By: #### CBC, HEPXA, CMPX, MG, TSHX, TROPI #### [facility] [address] [place] [address] Proof Technician: Dexter Fried MD #### LIPR #### [address] [address] Proof Technician: Paco Tatum MDLymphocytes (Bld) [#/Vol]2.99 10*3/uLNormal 1.10-3.70[facility] HospitalComveterans affairs medical center on above:Performed By: #### CBC, HEPXA, CMPX, MG, TSHX, TROPI #### [facility] [address] [place] [phone] Proof Technician: Dexter Fried MD #### LIPR #### [address] [address] Proof Technician: Paco Tatum MDLymphocytes/100 WBC (Bld)29 %Yungtt25-33WtemrCleveland Clinic Marymount HospitalComveterans affairs medical center on above:Performed By: #### CBC, HEPXA, CMPX, MG, TSHX, TROPI #### [facility] [address] [place] [address] Proof Technician: Dexter Fried MD #### LIPR #### [address] [address] Proof Technician: OCTAVIA PorterCH (RBC) [Entitic mass]26.6 saCztcip48.2-33.5 [facility] HospitalComveterans affairs medical center on above:Performed By: #### CBC, HEPXA, CMPX, MG, TSHX, TROPI #### [facility] [address] [place] [address] Proof Technician: Dexter Fried MD #### LIPR #### [address] [address] Proof Technician: AMIRA PorterC (RBC) [Mass/Vol]30.9 g/fWNprtuw79.4-34.8 [facility] HospitalComveterans affairs medical center on above:Performed By: #### CBC, HEPXA, CMPX, MG, TSHX, TROPI #### [facility] [address] [place] [phone] Proof Technician: Dexter Fried MD #### LIPR #### [address] [address] Proof Technician: OCTAVIA PorterCV (RBC) [Entitic vol]86.2 qUMjjptb85.6-102.9 [facility] on above:Performed By: #### CBC, HEPXA, CMPX, MG, TSHX, TROPI #### [facility] [address] [place] [address] Proof Technician: Dexter Fried MD #### LIPR #### [address] [address] Proof Technician: OCTAVIA Porteronocytes (Bld) [#/Vol]0.61 10*3/uLNormal 0.10-1.20[facility] on above:Performed By: #### CBC, HEPXA, CMPX, MG, TSHX, TROPI #### [facility] [address] [place] [address] Proof Technician: Dexter Fried MD #### LIPR #### [address] [address] Proof Technician: OCTAVIA Porteronocytes/100 WBC (Bld)6 %Normal3-12[facility] on above:Performed By: #### CBC, HEPXA, CMPX, MG, TSHX, TROPI #### [facility] [address] [place] [address] Proof Technician: Dexter Fried MD #### LIPR #### [address] [address] Proof Technician: Paco Tatum MDNeutrophil (Seg)61 %Aaxibw34-76YcmjtAccess Hospital [facility] on above:Performed By: #### CBC, HEPXA, CMPX, MG, TSHX, TROPI #### [facility] [address] [place] [address] Proof Technician: Dexter Fried MD #### LIPR #### [address] [address] Proof Technician: Paco Tatum MDNRBC Automated0.0 per 100 WBCNormal0.0[facility] on above:Performed By: #### CBC, HEPXA, CMPX, MG, TSHX, TROPI #### [facility] [address] [place] [address] Proof Technician: Dexter Fried MD #### LIPR #### [address] [address] Proof Technician: Keysha Porter mean volume (Bld) [Entitic vol]9.1 fL Normal8.1-13.5[facility] on above:Performed By: #### CBC, HEPXA, CMPX, MG, TSHX, TROPI #### [facility] [address] [place] [address] Proof Technician: Dexter Fried MD #### LIPR #### [address] [address] Proof Technician: Jason Porter (Bld) [#/Vol]351 10*3/iESmatxt718-951 [facility] on above:Performed By: #### CBC, HEPXA, CMPX, MG, TSHX, TROPI #### [facility] [address] [place] [address] Proof Technician: Dexter Fried MD #### LIPR #### [address] [address] Proof Technician: PATRICIA Porter (Bld) [#/Vol]4.06 10*6/uLNormal3.95-5.11 [facility] HospitalComment on above:Performed By: #### CBC, HEPXA, CMPX, MG, TSHX, TROPI #### [facility] [address] [place] [address] Proof Technician: Dexter Fried MD #### LIPR #### [address] [address] Proof Technician: PATRICIA Porter morphology finding Nom (Bld)ANISOCYTOSIS PRESENTNormalMercy Multicare Tacoma General HospitalComment on above:Performed By: #### CBC, HEPXA, CMPX, MG, TSHX, TROPI #### [facility] [address] [place] [address] Proof Technician: Dexter Fried MD #### LIPR #### [address] [address] Proof Technician: Paco Tatum MDWBC (Bld) [#/Vol]10.2 10*3/uLNormal3.5-11.3MSwedish Medical Center IssaquahComveterans affairs medical center on above:Performed By: #### CBC, HEPXA, CMPX, MG, TSHX, TROPI #### [facility] [address] [place] [address] Proof Technician: Dexter Fried MD #### LIPR #### [address] [address] Proof Technician: Paco Tatum, MDCT CHEST PULMONARY EMBOLISM W CONTRASTon . Acute embolus, within a distal segmental and proximal subsegmental branches, right lower lobe pulmonary artery, without evidence of RV strain 2. Cardiomegaly 3. 13 mm thyroid nodule, within the medial portion of the right lobe extending into the isthmus. Recommendation as discussed below 4. Critical results were called by Dr. Ernie Gamino to RN RECRUITMENT Bandar Vaughan on 11/30/2021 at 10:54 p.m. hours. RECOMMENDATIONS: 1.3 cm incidental right thyroid nodule with heterogeneous and enlarged thyroid. Recommend thyroid US. Reference: J Am Sukhjinder Radiol. 2014;12(2): 143-50 [facility] RIS CONSOLIDATEDEXAMINATION: CTA OF THE CHEST 11/30/2021 [...] No acute bone or soft tissue abnormality. [facility] Ernie Main, DO - 11/30/2021 EXAMINATION: CTA OF THE [...] J Am Sukhjinder Radiol. 2015 Oct;12(2): 143-50 [facility] e(ye)BRAIN Work Phone: [facility] e(ye)BRAIN Work Phone: radiology Study observation (narrative)[facility] e(ye)BRAIN Work Phone: comp Metabolic Pr/rfx MGon 11-30-2021(cont.)Normal [facility] HospitalComment on above:Result Comment: Average GFR for 20-29 years old: 116 mL/min/1.73sq m Chronic Kidney Disease: <60 mL/min/1.73sq m Kidney failure: <15 mL/min/1.73sq m eGFR calculated using average adult body mass. Additional eGFR calculator available at: http://www.Milk/multiple_crcl_2012.htmPerformed By: #### CBC, HEPXA, CMPX, MG, TSHX, TROPI #### [facility] [address] [place] [address] Proof Technician: Dexter Fried MD #### LIPR #### [address] [address] Proof Technician: Paco Tatum MDAlbumin [Mass/Vol]3.7 g/dLNormal3.5-5.2[facility] HospitalComveterans affairs medical center on above:Performed By: #### CBC, HEPXA, CMPX, MG, TSHX, TROPI #### [facility] [address] [place] [address] Proof Technician: Dexter Fried MD #### LIPR #### [address] [address] Proof Technician: Clovis Porterkaline Tllg167 U/QTnohbi07-900ZojthCleveland Clinic Marymount HospitalComment on above:Performed By: #### CBC, HEPXA, CMPX, MG, TSHX, TROPI #### [facility] [address] [place] [address] Proof Technician: Dexter Fried MD #### LIPR #### [address] [address] Proof Technician: Paco Tatum MDALT [Catalytic activity/Vol]31 U/LNormal5-33 [facility] on above:Performed By: #### CBC, HEPXA, CMPX, MG, TSHX, TROPI #### [facility] [address] [place] [address] Proof Technician: Dexter Fried MD #### LIPR #### [address] [address] Proof Technician: Paco Tatum MDAnion gap [Moles/Vol]10 mmol/LNormal9-17[facility] on above:Performed By: #### CBC, HEPXA, CMPX, MG, TSHX, TROPI #### [facility] [address] [place] [address] Proof Technician: Dexter Fried MD #### LIPR #### [address] [address] Proof Technician: Paco Tatum MDAST [Catalytic activity/Vol]15 U/LNormal<32[facility] on above:Performed By: #### CBC, HEPXA, CMPX, MG, TSHX, TROPI #### [facility] [address] [place] [address] Proof Technician: Dexter Fried MD #### LIPR #### [address] [address] Proof Technician: Paco Tatum MDBilirubin [Mass/Vol]0.21 mg/dLLow0.3-1.2MSwedish Medical Center IssaquahComment on above:Performed By: #### CBC, HEPXA, CMPX, MG, TSHX, TROPI #### [facility] [address] [place] [address] Proof Technician: Dexter Fried MD #### LIPR #### [address] [address] Proof Technician: Paco Tatum MDBUN/CRE Mtzpk10Nwlt2-41DpvsmCleveland Clinic [facility]mount Hospital Comment on above:Performed By: #### CBC, HEPXA, CMPX, MG, TSHX, TROPI #### [facility] [address] [place] [address] Proof Technician: Dexter Fried MD #### LIPR #### [address] [address] Proof Technician: CELESTE Porteralcium [Mass/Vol]9.0 mg/dLNormal8.6-10.4[facility] HospitalComment on above:Performed By: #### CBC, HEPXA, CMPX, MG, TSHX, TROPI #### [facility] [address] [place] [address] Proof Technician: Dexter Fried MD #### LIPR #### [address] [address] Proof Technician: Paco Tatum MDChloride [Moles/Vol]101 mmol/KAujpyk06-751TcwcxCleveland Clinic Marymount HospitalComment on above:Performed By: #### CBC, HEPXA, CMPX, MG, TSHX, TROPI #### [facility] [address] [place] [address] Proof Technician: Dexter Fried MD #### LIPR #### [address] [address] Proof Technician: CELESTE PorterO2 [Moles/Vol]23 mmol/TZsokpm22-40WipflCleveland Clinic Marymount HospitalComveterans affairs medical center on above:Performed By: #### CBC, HEPXA, CMPX, MG, TSHX, TROPI #### [facility] [address] [place] [address] Proof Technician: Dexter Fried MD #### LIPR #### [address] [address] Proof Technician: CELESTE Porterreatinine [Mass/Vol]0.55 mg/dLNormal0.50-0.90 [facility] HospitalComveterans affairs medical center on above:Performed By: #### CBC, HEPXA, CMPX, MG, TSHX, TROPI #### [facility] [address] [place] [address] Proof Technician: Dexter Fried MD #### LIPR #### [address] [address] Proof Technician: Paco Tatum MDGFR, Amer>60Normal>60[facility] HospitalComveterans affairs medical center on above:Performed By: #### CBC, HEPXA, CMPX, MG, TSHX, TROPI #### [facility] [address] [place] [address] Proof Technician: Dexter Fried MD #### LIPR #### [address] [address] Proof Technician: Paco Tatum MDGFR,non Amer>60Normal>60[facility] HospitalComveterans affairs medical center on above:Performed By: #### CBC, HEPXA, CMPX, MG, TSHX, TROPI #### [facility] [address] [place] [address] Proof Technician: Dexter Fried MD #### LIPR #### [address] [address] Proof Technician: Paco Tatum MDGlucose [Mass/Vol]101 mg/kWKvau48-23YbbnvSwedish Medical Center IssaquahComment on above:Performed By: #### CBC, HEPXA, CMPX, MG, TSHX, TROPI #### [facility] [address] [place] [address] Proof Technician: Dexter Fried MD #### LIPR #### [address] [address] Proof Technician: Paco Tatum MDPotassium [Moles/Vol]4.0 mmol/LNormal3.7-5.3 [facility] HospitalComment on above:Performed By: #### CBC, HEPXA, CMPX, MG, TSHX, TROPI #### [facility] [address] [place] [address] Proof Technician: Dexter Fried MD #### LIPR #### [address] [address] Proof Technician: Paco Tatum MDProtein [Mass/Vol]6.9 g/dLNormal6.4-8.3MSwedish Medical Center IssaquahComveterans affairs medical center on above:Performed By: #### CBC, HEPXA, CMPX, MG, TSHX, TROPI #### [facility] [address] [place] [address] Proof Technician: Dexter Fried MD #### LIPR #### [address] [address] Proof Technician: Paco Tatum MDSodium [Moles/Vol]134 mmol/CZkc866-858OynzdCleveland Clinic Marymount HospitalComment on above:Performed By: #### CBC, HEPXA, CMPX, MG, TSHX, TROPI #### [facility] [address] [place] [address] Proof Technician: Dexter Fried MD #### LIPR #### [facility] [place], [place] [phone] Proof Technician: Paco Tatum MDUrea nitrogen [Mass/Vol]16 mg/dLNormal6-20[facility] HospitalComment on above:Performed By: #### CBC, HEPXA, CMPX, MG, TSHX, TROPI #### [facility] [address] [place] [address] [phone] Proof Technician: Dexter Fried MD #### LIPR #### [address] [phone] Proof Technician: CELESTE Porteromprehensive Metabolic Panel w/ Reflex to MGon 18-09-7860Gvhnphp [Mass/Vol]3.7 g/dL3.5 - 5.2 g/dLMercy HealthALP (Bld) [Catalytic activity/Vol]102 U/L35 - 104 U/LMercy HealthALT [Catalytic activity/Vol]31 U/L5 - 33 U/LMercy HealthAnion gap [Moles/Vol]10 mmol/L9 - 17 mmol/LMercy HealthAST [Catalytic activity/Vol]15 U/L<32Mercy HealthBilirubin [Mass/Vol]0.21 mg/dLLow0.3 - 1.2 mg/dLMercy HealthCalcium [Mass/Vol]9.0 mg/dL8.6 - 10.4 mg/dLMercy HealthChloride [Moles/Vol]101 mmol/L98 - 107 mmol/LMercy HealthCO2 [Moles/Vol]23 mmol/L20 - 31 mmol/LMercy HealthCreatinine [Mass/Vol] 0.55 mg/dL0.50 - 0.90 mg/dLCleveland Clinic Mentor HospitalFree PSA/Total PSA [Mass fraction]6.9 g/dL6.4 - 8.3 g/dLHocking Valley Community Hospital HealthGFR >60>60 mL/minHocking Valley Community Hospital HealthGFR Non->60>60 mL/minHocking Valley Community Hospital HealthGFR/1.73 sq M.predicted MDRD (S/P/Bld) [Vol rate/Area][facility] HospitalComment on above:Average GFR for 20-29 years old: 116 mL/min/1.73sq m Chronic Kidney Disease: <60 mL/min/1.73sq m Kidney failure: <15 mL/min/1.73sq m eGFR calculated using average adult body mass. Additional eGFR calculator available at: http://www.Milk/multiple_crcl_2011.htm Glucose [Mass/Vol]101 mg/nTLyrh46 - 99 mg/dLHocking Valley Community Hospital HealthPotassium [Moles/Vol]4.0 mmol/L3.7 - 5.3 mmol/LMercy HealthSodium [Moles/Vol]134 mmol/SNls775 - 144 mmol/LMercy HealthUrea nitrogen (BldV) [Mass/Vol]16 mg/dL6 - 20 mg/dLHocking Valley Community Hospital HealthUrea nitrogen/Creatinine (Bld) [Mass ratio]29HighCleveland Clinic Mentor HospitalD-Dimer Test on 62-87-6731H-Dimer Test1.73 mg/L FEUHigh0.00-0.59[facility] Comment on above:Result Comment: When combined [...] HEPXA, CMPX, MG, TSHX, TROPI #### [facility] [address] [place], [place] [phone] Proof Technician: Dexter Fried MD #### LIPR #### [facility] [employer] [address] [place], [place] [phone] Proof Technician: Paco Tatum, MDD-Dimer, Quantitativeon [id number]-Dimer, Quant 1.73Memorial HospitalComment on above: When combined with a low [...] distal DVT. Interpretation and review of laboratory resultsAbnormHospital Sisters Health System [facility] Lactate Dehydrogenaseon 86-03-1038VCA [Catalytic activity/Vol]171 U/LNormal 135-214[facility] HospitalComment on above:Performed By: #### CBC, HEPXA, CMPX, MG, TSHX, TROPI #### [facility] [address] [place] [address] [phone] Proof Technician: Dexter Fried MD #### LIPR #### [address] [phone] Proof Technician: Paco Tatum MDLD171 U/L135 - 214 U/LMercy HealthMagnesiumon 36-69-4584Magcrxyaz [Mass/Vol]1.9 mg/dLNormal1.6-2.6MSwedish Medical Center Issaquah Comment on above:Performed By: #### CBC, HEPXA, CMPX, MG, TSHX, TROPI #### [facility] [address] [place] [address] [phone] Proof Technician: Dexter Fried MD #### LIPR #### [address] [phone] Proof Technician: Paco Tatum MDMagnesium [Mass/Vol]1.9 mg/dL1.6 - 2.6 mg/dL [facility] HospitalMicroscopic Urinalysison 11-30-2021-[facility] HospitalBacteria, UARARE AbnormalNoneMercy HealthEpithelial Cells UA0 TO 2Merc HealthInterpretation and review of laboratory resultsAbnoGreen Cross HospitalRBC, UA2 TO 5[facility] HospitalWBC, UA 2 TO 5[facility] WauwatosaNo Panel Informationon [id number] and review of laboratory resultsAbWisconsin Heart Hospital– Wauwatosa Prot. Electrophoresis, Uron [id number] of Specimen.CLEAN CATCH URINENormal [facility] HospitalComment on above:Performed By: #### CBC, HEPXA, CMPX, MG, TSHX, TROPI #### [facility] [address] [place], [place] [phone] Proof Technician: Dexter Fried MD #### LIPR #### [facility] [employer] [facility] [place] [phone] Proof Technician: RAHUL Porterrotime-INRon [id number] Coag (Bld) [Relative time]1.1 {INR}[facility] HospitalComveterans affairs medical center on above: Non-therapeutic Range: INR = 0.9-1.2 Therapeutic Range: Moderate Anticoagulant Intensity: INR = 2.0-3.0 High Anticoagulant Intensity: INR = 2.5-3.5 PT Coag (PPP) [Time]14 sMercSumma Health Barberton Campusoponinon 91-17-9178Eafgohql, High Sens<9Grwiib3-49YmqdxCleveland Clinic Marymount HospitalComveterans affairs medical center on above:Result Comment: High Sensitivity Troponin values cannot be compared with other Troponin methodologies. Patients with high levels of Biotin oral intake (i.e >5mg/day) may have falsely decreased Troponin levels. Samples collected within 8 hours of biotin intake may require additional information for diagnosis.Performed By: #### CBC, HEPXA, CMPX, MG, TSHX, TROPI #### [facility] [address] [place] [address] Proof Technician: Dexter Fried MD #### LIPR #### [facility] [employer] [address] [place], [place] [phone] Proof Technician: Yuri Porter High Sensitivity<60 - 14 ng/LMercy [facility] Southeastern Medical CenterComveterans affairs medical center on above: High Sensitivity Troponin values cannot be compared with other Troponin methodologies. Patients with high levels of Biotin oral intake (i.e >5mg/day) may have falsely decreased Troponin levels. Samples collected within 8 hours of biotin intake may require additional information for diagnosis. [facility] HospitalRitanin, High Sensitivity<60 - 14 ng/LMercy [facility] Medical CenterComveterans affairs medical center on above: High Sensitivity Troponin values cannot be compared with other Troponin methodologies. Patients with high levels of Biotin oral intake (i.e >5mg/day) may have falsely decreased Troponin levels. Samples collected within 8 hours of biotin intake may require additional information for diagnosis. UA w/Reflex Cultureon [id number], SemiQt,UrNegativeNormalNEGMercy [facility] on above:Performed By: #### CBC, HEPXA, CMPX, MG, TSHX, TROPI #### [facility] [address] [place] [address] Proof Technician: Dexter Fried MD #### LIPR #### [address] [address] Proof Technician: Gerber Porter, Urine3+AbnormalNEGCleveland Clinic Marymount Hospital Comment on above:Performed By: #### CBC, HEPXA, CMPX, MG, TSHX, TROPI #### [facility] [address] [place] [address] Proof Technician: Dexter Fried MD #### LIPR #### [address] [address] Proof Technician: Angie Porter (U)SLIGHTLY CLOUDYAbnormalCLEARMercFormerly [facility] Psych[facility] HospitalComveterans affairs medical center on above:Performed By: #### CBC, HEPXA, CMPX, MG, TSHX, TROPI #### [facility] [address] [place] [phone] Proof Technician: Dexter Fried MD #### LIPR #### [address] [address] Proof Technician: June Porter (U)YellowNormalYELMerColumbia Basin Hospital Comment on above:Performed By: #### CBC, HEPXA, CMPX, MG, TSHX, TROPI #### [facility] [address] [place] [address] Proof Technician: Dexter Fried MD #### LIPR #### [address] [address] Proof Technician: Paco Tatum MDGlucose Ql (U)NegativeNormalNEGMerAstria Regional Medical Center on above:Performed By: #### CBC, HEPXA, CMPX, MG, TSHX, TROPI #### [facility] [address] [place] [address] Proof Technician: Dexter Fried MD #### LIPR #### [address] [address] Proof Technician: Paco Tatum MDKetones Ql (U)NegativeNormalNEGMerAstria Regional Medical Center on above:Performed By: #### CBC, HEPXA, CMPX, MG, TSHX, TROPI #### [facility] [address] [place] [address] Proof Technician: Dexter Fried MD #### LIPR #### [address] [address] Proof Technician: Paco Tatum MDLeukocyte esterase Test strip Ql (U)SMALL AbnormalNEGMerColumbia Basin HospitalComveterans affairs medical center on above:Performed By: #### CBC, HEPXA, CMPX, MG, TSHX, TROPI #### [facility] [address] [place] [address] Proof Technician: Dexter Fried MD #### LIPR #### [address] [address] Proof Technician: Paco Tatum MDNitrite,UrNegativeNormalNEGMerAstria Regional Medical Center on above:Performed By: #### CBC, HEPXA, CMPX, MG, TSHX, TROPI #### [facility] [address] [place] [address] Proof Technician: Dexter Fried MD #### LIPR #### [address] [address] Proof Technician: Paco Tatum [facility],Ur6.2Vhgayv2.0-8.0[facility] Comment on above:Performed By: #### CBC, HEPXA, CMPX, MG, TSHX, TROPI #### [facility] [address] [place] [address] Proof Technician: Dexter Fried MD #### LIPR #### [address] [address] Proof Technician: RAHUL Portercommunity medical center Ql (U)NegativeNormalNEGCleveland Clinic Marymount HospitalComment on above:Performed By: #### CBC, HEPXA, CMPX, MG, TSHX, TROPI #### [facility] [address] [place] [address] Proof Technician: Dexter Fried MD #### LIPR #### [address] [address] Proof Technician: Paco Tatum [facility] [place]ULSApec. [place],Ur1.382Nsbr0.005-1.030[facility] HospitalComment on above:Performed By: #### CBC, HEPXA, CMPX, MG, TSHX, TROPI #### [facility] [address] [place] [address] Proof Technician: Dexter Fried MD #### LIPR #### [address] [address] Proof Technician: Paco Tatum MDUrobilinogen,UrNormalNormalNORMCleveland Clinic Marymount HospitalComment on above:Performed By: #### CBC, HEPXA, CMPX, MG, TSHX, TROPI #### [facility] [address] [place] [address] Proof Technician: Dexter Fried MD #### LIPR #### [place] [address] [place], [place] [phone] Proof Technician: Paco Tatum MDUric Acidon 45-44-1105Oqaei [Mass/Vol]8.0 mg/dL High2.4-5.7Mer[facility]oma General HospitalComment on above:Performed By: #### CBC, HEPXA, CMPX, MG, TSHX, TROPI #### [facility] [address] [place] [address] Proof Technician: Dexter Fried MD #### LIPR #### [address] [phone] Proof Technician: Paco Tatum MDUrate [Mass/Vol]8.0 mg/dLHigh2.4 - 5.7 mg/dL Merc HealthUrinalysis with Reflex to Cultureon [id number] Urine NegativeNEGATIVEMercy HealthColor, UAYellowYellowMercy HealthGlucose, UrNegative NEGATIVEMercy HealthInterpretation and review of laboratory resultsAbnormalMercy HealthKetones Ql (U)NegativeNEGATIVEMercy HealthLeukocyte esterase Test strip Ql (U)SMALLAbnormalNEGATIVEMercy HealthNitrite, UrineNegativeNEGATIVEMercy HealthpH, UA6.0Mercy HealthProtein, UANegativeNEGATIVEMercy HealthSpecific [place], UA1.035HighMercy HealthTurbidity UASLIGHTLY CLOUDYAbnormalClearMercy HealthUrine Hgb3+AbnormalNEGATIVEMercy HealthUrobilinogen, UrineNormalNormal [facility] Hospitaly HealthMercy HealthUrinalysis,Microon 11-30-2021-----NormalMercy Multicare Tacoma General HospitalComment on above:Performed By: #### CBC, HEPXA, CMPX, MG, TSHX, TROPI #### [facility] [address] [place] [address] Proof Technician: Dexter Fried MD #### LIPR #### [address] [address] Proof Technician: Annabella PortercteriaRAREAbmercy hospital st. louisalNONEMeAstria Sunnyside Hospital Comment on above:Performed By: #### CBC, HEPXA, CMPX, MG, TSHX, TROPI #### [facility] [address] [place] [address] Proof Technician: Dexter Fried MD #### LIPR #### [address] [address] Proof Technician: Paco Tatum MDEpithelial cells LM Ql (Urine sed)0 TO 2Normal 0-5[facility] HospitalComment on above:Performed By: #### CBC, HEPXA, CMPX, MG, TSHX, TROPI #### [facility] [address] [place] [address] Proof Technician: Dexter Fried MD #### LIPR #### [address] [address] Proof Technician: Paco Tatum MDUrine RBC's2 TO 8Rxamlq4-4WkhxkFormerly [facility] Psychiatric HospitalComment on above:Performed By: #### CBC, HEPXA, CMPX, MG, TSHX, TROPI #### [facility] [address] [place] [address] Proof Technician: Dexter Fried MD #### LIPR #### [address] [address] Proof Technician: Paco Tatum MDUrine WBC's2 TO 2Ryauym3-2AtdvqColumbia Basin HospitalComment on above:Performed By: #### CBC, HEPXA, CMPX, MG, TSHX, TROPI #### [facility] [address] [place], [place] [phone] Proof Technician: Dexter Fried MD #### LIPR #### [facility] [address] [place] [address] Proof Technician: ALFIE Porter CHEST PORTABLEon [id number] CHEST PORTABLE EXAMINATION: ONE XRAY VIEW OF [...] Signed by: Ernie Gamino DO 11/30/21 Final resultNormalMercy Multicare [facility] Hospital1. Cardiomegaly, without evidence of CHF [facility] RIS CONSOLIDATEDEXAMINATION: ONE XRAY VIEW OF THE CHEST 11/30/2021 5:46 pm COMPARISON: CT PA dated November 26, 2021 HISTORY: ORDERING SYSTEM PROVIDED HISTORY: sob TECHNOLOGIST PROVIDED HISTORY: sob Reason for Exam: SOB FINDINGS: Adequate inspiration is present. No focal area of consolidation or pneumothorax is noted. Heart size is prominent. Vascular markings are distinct. No acute osseous abnormality is present. PN RIS Ernie Main DO - 11/30/2021 EXAMINATION: ONE XRAY VIEW [...] IMPRESSION: 1. Cardiomegaly, without evidence of CHF LUVHAN Work Phone: radiology Study observation (narrative)[facility] e(ye)BRAIN Work Phone: xr CHEST PORTABLEOrdered By: Ernie Gamino on [id number] e(ye)BRAIN Work Phone: cbc with Auto Differentialon [id number] Eos # 0.23[facility] HospitalAbsolute Immature Granulocyte0.13[facility] HospitalAbsolute Lymph # 1.98[facility] HospitalAbsolute [place] #0.51[facility] HospitalBasophils (Bld) [#/Vol]0.06 10*3/uLCleveland Clinic Mentor HospitalBasophils/100 WBC (Bld)1 %0 - 2 %[facility] HospitalEosinophils/100 WBC (Bld)3 %1 - 4 %[facility] HospitalHematocrit (Bld) [Volume fraction]28.9 %Low36.3 - 47.1 %[facility] HospitalHemoglobin.gastrointestinal spec 1 Ql (Stl)8.9 g/dLLow11.9 - 15.1 g/dLCleveland Clinic Mentor HospitalImmature granulocytes/100 WBC (Bld)2 %Kxtt[address] [place] [address] Interpretation and review of laboratory resultsAbnormalCleveland Clinic [facility] Hospital Lymphocytes/100 WBC (Bld)23 %Low24 - 43 %[facility] HospitalH (RBC) [Entitic mass] 26.5 pg25.2 - 33.5 pgPomerene HospitalHC (RBC) [Mass/Vol]30.8 g/dL28.4 - 34.8 g/dL [facility]omerene HospitalV (RBC) [Entitic vol]86.0 fL82.6 - 102.9 fLCleveland Clinic Mentor Hospital Monocytes/100 WBC (Bld)6 %3 - 12 %[facility] HospitalNRBC Automated0.00.0 per 100 WBC [facility] HospitalPlatelet distribution width (Bld) [Ratio]14.8 %High11.8 - 14.4 % [facility] HospitalPlatelet mean volume (Bld) [Entitic vol]10.3 fL8.1 - 13.5 fLCleveland Clinic Mentor HospitalPlatelets (Bld) [#/Vol]236 10*3/uLCleveland Clinic Mentor HospitalRBC (Bld) [#/Vol]3.36 10*6/uLLow3.95 - 5.11 m/[facility] CenterRBC (Bld) [#/Vol]ANISOCYTOSIS PRESENTCleveland Clinic Mentor HospitalSehealthsouth deaconess rehabilitation hospital neutrophils/100 WBC (Bld)65 %36 - 65 %[facility] HospitalSe Absolute 5.77[facility] HospitalWBC (Bld) [#/Vol]8.7 10*3/uLWisconsin Heart Hospital– WauwatosaCB with Diffon [id number]. Basophil0.06 k/uLNormal0.00-0.20[facility] HospitalComment on above:Performed By: #### GARFIELD, CP, URI #### [address] [address] Proof Technician: MDAbs. GermanImm.Granulocyte0.13 k/uLNormal0.00-0.30[facility] HospitalComment on above:Performed By: #### DENG MERRILL, URI #### [address] [address] Proof Technician: Khadra Porter.Neutrophil (Seg)5.77 k/uLNormal1.50-8.10 [facility] HospitalComment on above:Performed By: #### GARFIELD, DENG, URI #### [address] [address] Proof Technician: Paco Tatum MDBasophils/100 WBC (Bld)1 %Normal0-2MTustin Hospital Medical CenterComment on above:Performed By: #### GARFIELD, CP, URI #### [address] [address] Proof Technician: MARQUITA Porterosinophils (Bld) [#/Vol]0.23 10*3/uLNormal 0.00-0.44[facility] HospitalComment on above:Performed By: #### GARFIELD, CP, URI #### [address] [address] Proof Technician: Paco Madoff, MDEosinophils/100 WBC (Bld)3 %Normal1-4[facility] HospitalComment on above:Performed By: #### DENG MERRILL, URI #### [address] [address] Proof Technician: Paco Tatum MDErythrocyte distribution width (RBC) [Ratio]14.8 %High11.8-14.4[facility] HospitalComment on above:Performed By: #### DENG MERRILL, URI #### [address] [address] Proof Technician: Paco Tatum MDHematocrit (Bld) [Volume fraction]28.9 %Low 36.3-47.1MTustin Hospital Medical CenterComment on above:Performed By: #### DENG MERRILL, URI #### [address] [address] Proof Technician: Paco Tatum MDHemoglobin (Bld) [Mass/Vol]8.9 g/dLLow11.9-15.1 [facility] HospitalComment on above:Performed By: #### DENG MERRILL, URI #### [address] [address] Proof Technician: Paco Tatum MDImmature granulocytes/100 WBC (Bld)2 %Jjxb1QahutMemorial Health System Marietta Memorial HospitalComment on above:Performed By: #### DENG MERRILL, URI #### [address] [address] Proof Technician: Paco Tatum MDLymphocytes (Bld) [#/Vol]1.98 10*3/uLNormal 1.10-3.70[facility] HospitalComment on above:Performed By: #### DENG MERRILL, URI #### [address] [address] Proof Technician: Paco Tatum MDLymphocytes/100 WBC (Bld)23 %Zic14-45WzxhaMemorial Health System Marietta Memorial HospitalComment on above:Performed By: #### DENG MERRILL, URI #### [address] [address] Proof Technician: OCTAVIA PorterCH (RBC) [Entitic mass]26.5 jlXgbyje75.2-33.5 [facility] HospitalComment on above:Performed By: #### GARFIELD, CP, URI #### [address] [address] Proof Technician: OCTAVIA PorterCHC (RBC) [Mass/Vol]30.8 g/wQExrsbk30.4-34.8 [facility] HospitalComment on above:Performed By: #### DENG MERRILL, URI #### [place] [address] Proof Technician: OCTAVIA PorterCV (RBC) [Entitic vol]86.0 oVMlqqms43.6-102.9 [facility] HospitalComment on above:Performed By: #### DENG MERRILL, URI #### [place] [address] Proof Technician: OCTAVIA Porteronocytes (Bld) [#/Vol]0.51 10*3/uLNormal 0.10-1.20[facility] HospitalComment on above:Performed By: #### GARFIELD, CP, URI #### [place] [address] Proof Technician: OCTAVIA Porteronocytes/100 WBC (Bld)6 %Normal3-12[facility] HospitalComment on above:Performed By: #### GARFIELD, CP, URI #### [facility] [employer] [address] [place] [address] Proof Technician: Paco Tatum MDNeutrophil (Seg)65 %Goydym51-28XaudfMemorial Health System Marietta Memorial HospitalComment on above:Performed By: #### DENG MERRILL, URI #### [facility] [address] [place] [address] Proof Technician: Paco Tatum MDNRBC Automated0.0 per 100 WBCNormal0.0[facility] HospitalComment on above:Performed By: #### CDP, CP, URI #### [facility] [address] [place] [address] Proof Technician: Dinorah Portertejavier mean volume (Bld) [Entitic vol]10.3 fL Normal8.1-13.5[facility] HospitalComment on above:Performed By: #### DENG MERRILL, URI #### [facility] [address] [place] [address] Proof Technician: Dinorah Portertejocelyn (Bld) [#/Vol]236 10*3/yWOfwewg308-503 [facility] HospitalComment on above:Performed By: #### GARFIELD, CP, URI #### [facility] [address] [place] [address] Proof Technician: INDER PorterBC (Bld) [#/Vol]3.36 10*6/uLLow3.95-5.11[facility] HospitalComment on above:Performed By: #### GARFIELD, CP, URI #### [facility] [address] [place] [address] Proof Technician: PATRICIA Porter morphology finding Nom (Bld)ANISOCYTOSIS PRESENTNormalMemorial Health System Marietta Memorial HospitalComment on above:Performed By: #### GARFIELD, CP, URI #### [address] [address] Proof Technician: BREEZY Porter (Bld) [#/Vol]8.7 10*3/uLNormal3.5-11.3Mer[facility]ammoth HospitalComment on above:Performed By: #### DENG MERRILL, PATRICEI #### [facility] [employer] [address] [place] [address] Proof Technician: Paco Tatum [facility] TULSAOVID-19, Rapidon [id number]-CoV-2 (COVID- 19) RNA MYNOR+probe Ql (Unsp spec)Not detectedNot Western Reserve HospitalComment on above: Rapid NAAT: The specimen [...] management decisions. Fact sheet for Healthcare Providers: https://www.fda.gov/media/400140/download Fact sheet for Patients: https://www.fda.gov/media/281124/download Methodology: Isothermal Nucleic Acid Amplification Specimen Description.NASOPHARYNGEAL SWABWisconsin Heart Hospital– WauwatosaCT CHEST PULMONARY EMBOLISM W CONTRASTon [id number] CHEST PULMONARY EMBOLISM W CONTRAST EXAMINATION: CTA [...] Signed by: Alok San MD 11/26/21 Final resultNormalMemorial Health System Marietta Memorial HospitalMotion degraded exam. No evidence for central pulmonary embolism. Probable subsegmental atelectasis in the lung bases. No consolidation. [facility] CONSOLIDATEDEXAMINATION: CTA OF THE CHEST 11/26/2021 5:23 [...] No acute bone or soft tissue abnormality. [facility] Alok Ray MD - 11/26/2021 EXAMINATION: CTA OF THE [...] atelectasis in the lung bases. No consolidation. [employer] Phone: radiology Study observation (narrative)[employer] Phone: cT CHEST PULMONARY EMBOLISM W CONTRASTOrdered By: Alok San on 12-01-2558TdcxkBizible Phone: Comp Metabolic Profon 11-26-2021(cont.)NormalMemorial Health System Marietta Memorial HospitalComment on above:Result Comment: Average GFR for 20-29 years old: 116 mL/min/1.73sq m Chronic Kidney Disease: <60 mL/min/1.73sq m Kidney failure: <15 mL/min/1.73sq m eGFR calculated using average adult body mass. Additional eGFR calculator available at: http://www.Lessno.HydroLogex/multiple_crcl_2012.htmPerformed By: #### CDP, CP, URI #### [facility] [address] [place] [address] Proof Technician: Paco Tatum MDAlbumin [Mass/Vol]3.3 g/dLLow3.5-5.2MTustin Hospital Medical CenterComment on above:Performed By: #### DENG MERRILL, URI #### [facility] [address] [place] [address] Proof Technician: Paco Tatum MDAlbumin/Glob Ratio1.4Oessfd4.0-2.5[facility] HospitalComment on above:Performed By: #### DENG MERRILL, URI #### [facility] [address] [place] [address] Proof Technician: Paco Tatum MDAlkaline Vuna985 U/BMwhj27-810IhfkpMemorial Health System Marietta Memorial HospitalComment on above:Performed By: #### DENG MERRILL, URI #### [facility] [address] [place] [address] Proof Technician: Paco Tatum MDALT [Catalytic activity/Vol]44 U/LHigh5-33[facility] HospitalComment on above:Performed By: #### DENG MERRILL, URI #### [facility] [address] [place] [address] Proof Technician: Paco Tatum MDAnion gap [Moles/Vol]14 mmol/LNormal9-17[facility] HospitalComment on above:Performed By: #### DENG MERRILL, URI #### [facility] [address] [place] [address] Proof Technician: Paco Tatum MDAST [Catalytic activity/Vol]26 U/LNormal<32[facility] HospitalComment on above:Performed By: #### DENG MERRILL, URI #### [facility] [address] [place] [address] Proof Technician: Paco Tatum MDBilirubin [Mass/Vol]0.19 mg/dLLow0.3-1.2MTustin Hospital Medical CenterComment on above:Performed By: #### GARFIELD, CP, URI #### [facility] [address] [place] [address] Proof Technician: CELESTE Porteralcium [Mass/Vol]8.3 mg/dLLow8.6-10.4[facility] HospitalComment on above:Performed By: #### GARFIELD, CP, URI #### [facility] [address] [place] [address] Proof Technician: Paco Tatum MDChloride [Moles/Vol]102 mmol/LYmhezi62-104AprliMemorial Health System Marietta Memorial HospitalComment on above:Performed By: #### GARFIELD CP, URI #### [facility] [address] [place] [address] Proof Technician: Paco Tatum MDCO2 [Moles/Vol]21 mmol/WVlehxs10-01VjybpVan Ness campusComment on above:Performed By: #### GARFIELD, CP, URI #### [facility] [address] [place] [address] Proof Technician: CELESTE Porterreatinine [Mass/Vol]0.32 mg/dLLow0.50-0.90[facility] HospitalComment on above:Performed By: #### GARFIELD, CP, URI #### [facility] [address] [place] [address] Proof Technician: MARTHA Porter, Amer>60Normal>60MerVan Ness campusComment on above:Performed By: #### GARFIELD, CP, URI #### [facility] [address] [place] [address] Proof Technician: Paco Tatum MDGFR,non Amer>60Normal>60MerVan Ness campusComment on above:Performed By: #### GARFIELD, CP, URI #### [facility] [address] [place] [address] Proof Technician: Paco Tatum MDGlucose [Mass/Vol]98 mg/vCGxmqfm40-41DubqnTustin Hospital Medical CenterComment on above:Performed By: #### DENG MERRILL, URI #### [facility] [address] [place] [address] Proof Technician: Paco Tatum MDPotassium [Moles/Vol]3.7 mmol/LNormal3.7-5.3 [facility] HospitalComment on above:Performed By: #### DENG MERRILL, URI #### [address] [address] Proof Technician: Paco Tatum MDProtein [Mass/Vol]6.2 g/dLLow6.4-8.3MTustin Hospital Medical CenterComment on above:Performed By: #### DENG MERRILL, URI #### [facility] [employer] [address] [place] [address] Proof Technician: Paco Tatum MDSodium [Moles/Vol]137 mmol/NHvhvmd516-233WwcngMemorial Health System Marietta Memorial HospitalComment on above:Performed By: #### DENG MERRILL, URI #### [facility] [employer] [address] [place] [address] Proof Technician: Paco Tatum MDUrea nitrogen [Mass/Vol]7 mg/dLNormal6-20[facility] HospitalComment on above:Performed By: #### DENG MERRILL, URI #### [facility] [employer] [address] [place] [address] Proof Technician: CELESTE Porteromprehensive Metabolic Panelon 11-26-2021 Albumin [Mass/Vol]3.3 g/dLLow3.5 - 5.2 g/dLCleveland Clinic Mentor HospitalAlbumin/Globulin [Mass ratio]1.1 {ratio}[facility] HospitalALP (Bld) [Catalytic activity/Vol]105 U/LHigh35 - 104 U/LMercy HealthALT [Catalytic activity/Vol]44 U/LHigh5 - 33 U/LMercy Health Anion gap [Moles/Vol]14 mmol/L9 - 17 mmol/LMercy HealthAST [Catalytic activity/Vol]26 U/L<32Mer HealthBilirubin [Mass/Vol]0.19 mg/dLLow0.3 - 1.2 mg/dLHocking Valley [facility] Hospital HealthCalcium [Mass/Vol]8.3 mg/dLLow8.6 - 10.4 mg/dLCleveland Clinic Ment[facility] Hospital Chloride [Moles/Vol]102 mmol/L98 - 107 mmol/LMercy HealthCO2 [Moles/Vol]21 mmol/L20 - 31 mmol/LMercy HealthCreatinine [Mass/Vol]0.32 mg/dLLow0.50 - 0.90 mg/dLCleveland Clinic Mentor HospitalFree PSA/Total PSA [Mass fraction]6.2 g/dLLow6.4 - 8.3 g/dL [facility] HealthGFR >60>60 mL/minHocking Valley Community Hospital HealthGFR Non->60>60 mL/minHocking Valley Community Hospital HealthGFR/1.73 sq M.predicted MDRD (S/P/Bld) [Vol rate/Area][facility] HospitalComment on above:Average GFR for 20-29 years old: 116 mL/min/1.73sq m Chronic Kidney Disease: <60 mL/min/1.73sq m Kidney failure: <15 mL/min/1.73sq m eGFR calculated using average adult body mass. Additional eGFR calculator available at: http://www.Lessno.HydroLogex/multiple_crcl_2011.htm Glucose [Mass/Vol]98 mg/dL70 - 99 mg/dLHocking Valley Community Hospital HealthPotassium [Moles/Vol]3.7 mmol/L3.7 - 5.3 mmol/LMercy HealthSodium [Moles/Vol]137 mmol/L135 - 144 mmol/L [facility] HospitalUrea nitrogen (BldV) [Mass/Vol]7 mg/dL6 - 20 mg/dLCleveland Clinic Mentor HospitalNo Panel Informationon [id number] and review of laboratory results AbnormalKettering Health Behavioral Medical Center HealthProtein / Creatinine Ratio, Urineon 03-19-2022 Creatinine, Ur31.3 mg/dL28.0 - 217.0 mg/dLHocking Valley [facility] Hospital HealthInterpretation and review of laboratory resultsAbnormalHocking Valley [facility] Hospital HealthProtein (U) [Mass/Vol]11 mg/dLCleveland Clinic Mentor HospitalComment on above:No normal range established.Urine Total Protein Creatinine Ratio0.35HighKettering Health Behavioral Medical Center HealthProtein,Tot,[place] Uron 11-26-2021 Creatinine [Mass/Vol]31.3 mg/uDOacwcp92.0-217.0[facility] on above:Performed By: #### CBC, HEPXA, CMPX, MG, TSHX, TROPI #### [facility] [address] [place] [address] Proof Technician: Dexter Fried MD #### LIPR #### [address] [address] Proof Technician: Paco Tatum MDTot Prot. Conc.11 mg/dLNormTrinity Health System [facility] on above:Result Comment: No normal range established.Performed By: #### CBC, HEPXA, CMPX, MG, TSHX, TROPI #### [facility] [address] [place] [address] Proof Technician: Dexter Fried MD #### LIPR #### [address] [address] Proof Technician: Paco Tatum MDTP/Cre Ratio0.29Qpai1.00-0.20[facility] on above:Performed By: #### CBC, HEPXA, CMPX, MG, TSHX, TROPI #### [facility] [address] [place] [address] Proof Technician: Dexter Fried MD #### LIPR #### [address] [address] Proof Technician: RADHA Porter-CoV-2on [id number]-CoV-2 (COVID-19) RNA MYNOR+probe Ql (Unsp spec)Not detectedNormalNOTDEOhioHealth Southeastern Medical CenterComment on above:Result Comment: Rapid NAAT: The specimen [...] management decisions. Fact sheet for Healthcare Providers: https://www.fda.gov/media/771591/download Fact sheet for Patients: https://www.fda.gov/media/889497/download Methodology: Isothermal Nucleic Acid AmplificationPerformed By: #### COVRB #### [facility] [address] [place] [address] Proof Technician: Dexter Fried MDUric Acidon [id number] [Mass/Vol]6.4 mg/dL High2.4-5.7[facility] HospitalComment on above:Performed By: #### CDP, CP, URI #### [facility] [address] [place] [address] Proof Technician: Paco Tatum MDUrate [Mass/Vol]6.4 mg/dLHigh2.4 - 5.7 mg/dL [facility] HospitalBasic Metabolic Panelon 98-14-5665Heavh gap [Moles/Vol]11 mmol/L9 - 17 mmol/LMercy HealthCalcium [Mass/Vol]8.5 mg/dLLow8.6 - 10.4 mg/dLCleveland Clinic [facility] Hospital Chloride [Moles/Vol]104 mmol/L98 - 107 mmol/LMercy HealthCO2 [Moles/Vol]22 mmol/L20 - 31 mmol/LMercy HealthCreatinine [Mass/Vol]0.43 mg/dLLow0.50 - 0.90 mg/dLHocking Valley Community Hospital HealthGFR >60>60 mL/minHocking Valley Community Hospital HealthGFR Non->60>60 mL/minHocking Valley Community Hospital HealthGFR/1.73 sq M.predicted MDRD (S/P/Bld) [Vol rate/Area][facility] HospitalComment on above:Average GFR for 20-29 years old: 116 mL/min/1.73sq m Chronic Kidney Disease: <60 mL/min/1.73sq m Kidney failure: <15 mL/min/1.73sq m eGFR calculated using average adult body mass. Additional eGFR calculator available at: http://www.Milk/multiple_crcl_2012.htm Glucose [Mass/Vol]101 mg/lOAzej16 - 99 mg/dLHocking Valley Community Hospital HealthPotassium [Moles/Vol]4.2 mmol/L3.7 - 5.3 mmol/LMercy HealthSodium [Moles/Vol]137 mmol/L135 - 144 mmol/L [facility] HospitalUrea nitrogen (BldV) [Mass/Vol]9 mg/dL6 - 20 mg/dLCleveland Clinic Mentor HospitalUrea nitrogen/Creatinine (Bld) [Mass ratio]21Memorial HospitalBasic Metabolic Profon 16-01-1944Zvywa gap [Moles/Vol]11 mmol/LNormal9-17[facility] HospitalComment on above:Performed By: #### CBC, HEPXA, CMPX, MG, TSHX, TROPI #### [facility] [address] [place], [place] [phone] Proof Technician: Dexter Fried MD #### LIPR #### [facility] [employer] [address] [place], [place] [phone] Proof Technician: Paco Tatum MDBUN/CRE Pogqp14Fpga2-76OvblfCleveland Clinic Marymount Hospital Comment on above:Performed By: #### CBC, HEPXA, CMPX, MG, TSHX, TROPI #### [facility] [place] [address] Proof Technician: Dexter Fried MD #### LIPR #### [address] [address] Proof Technician: CELESTE Porteralcium [Mass/Vol]8.5 mg/dLLow8.6-10.4[facility] HospitalComveterans affairs medical center on above:Performed By: #### CBC, HEPXA, CMPX, MG, TSHX, TROPI #### [facility] [address] [place] [address] Proof Technician: Dexter Fried MD #### LIPR #### [address] [address] Proof Technician: CELESTE Porterhloride [Moles/Vol]104 mmol/RCyxmhz52-815XudbxAccess Hospital Dayton on above:Performed By: #### CBC, HEPXA, CMPX, MG, TSHX, TROPI #### [facility] [address] [place] [address] Proof Technician: Dexter Fried MD #### LIPR #### [address] [address] Proof Technician: CELESTE PorterO2 [Moles/Vol]22 mmol/NMuymrx20-30EencuAccess Hospital Dayton on above:Performed By: #### CBC, HEPXA, CMPX, MG, TSHX, TROPI #### [facility] [address] [place] [address] Proof Technician: Dexter Fried MD #### LIPR #### [address] [address] Proof Technician: CELESTE Porterreatinine [Mass/Vol]0.43 mg/dLLow0.50-0.90[facility] on above:Performed By: #### CBC, HEPXA, CMPX, MG, TSHX, TROPI #### [facility] [address] [place] [address] Proof Technician: Dexter Fried MD #### LIPR #### [address] [address] Proof Technician: Paco Tatum MDGFR, Amer>60Normal>60MerAstria Regional Medical Center on above:Performed By: #### CBC, HEPXA, CMPX, MG, TSHX, TROPI #### [facility] [address] [place] [address] Proof Technician: Dexter Fried MD #### LIPR #### [address] [address] Proof Technician: Paco Tatum MDGFR,non Amer>60Normal>60MerColumbia Basin HospitalComveterans affairs medical center on above:Performed By: #### CBC, HEPXA, CMPX, MG, TSHX, TROPI #### [facility] [address] [place] [address] Proof Technician: Dexter Fried MD #### LIPR #### [address] [address] Proof Technician: Paco Tatum MDGlucose [Mass/Vol]101 mg/tRHunu14-92Ztnws [facility] on above:Performed By: #### CBC, HEPXA, CMPX, MG, TSHX, TROPI #### [facility] [address] [place] [address] Proof Technician: Dexter Fried MD #### LIPR #### [place] [place] [address] Proof Technician: RAHUL Porterotassium [Moles/Vol]4.2 mmol/LNormal3.7-5.3 [facility] HospitalComment on above:Performed By: #### CBC, HEPXA, CMPX, MG, TSHX, TROPI #### [facility] [address] [place] [address] Proof Technician: Dexter Fried MD #### LIPR #### [address] [address] Proof Technician: KELLY Porterodium [Moles/Vol]137 mmol/ROrhjse530-539JtyrfCleveland Clinic Marymount HospitalComment on above:Performed By: #### CBC, HEPXA, CMPX, MG, TSHX, TROPI #### [facility] [address] [place] [address] Proof Technician: Dexter Fried MD #### LIPR #### [address] [address] Proof Technician: Paco Tatum MDUrea nitrogen [Mass/Vol]9 mg/dLNormal6-20[facility] HospitalComment on above:Performed By: #### CBC, HEPXA, CMPX, MG, TSHX, TROPI #### [facility] [address] [place] [address] Proof Technician: Dexter Fried MD #### LIPR #### [address] [address] Proof Technician: Paco Tatum MD(cont.)Trinity Health SystemComment on above:Result Comment: Average GFR for 20-29 years old: 116 mL/min/1.73sq m Chronic Kidney Disease: <60 mL/min/1.73sq m Kidney failure: <15 mL/min/1.73sq m eGFR calculated using average adult body mass. Additional eGFR calculator available at: http://www.Lessno.HydroLogex/multiple_crcl_2012.htmPerformed By: #### CBC, HEPXA, CMPX, MG, TSHX, TROPI #### [facility] [address] [place] [address] Proof Technician: Dexter Fried MD #### LIPR #### [facility] [employer] [facility] [place], [place] [phone] Proof Technician: Paco Tatum MDBrain Natri. Peptideon 94-69-9193Uyqtoytzzym peptide B (Bld) [Mass/Vol]163 pg/mLNormal<300MerColumbia Basin HospitalComment on above:Result Comment: An age-independent cutoff point of 300 pg/ml has a 98% negative predictive value excluding acute heart failure.Performed By: #### CBC, HEPXA, CMPX, MG, TSHX, TROPI #### [facility] [place] [address] Proof Technician: Dexter Fried MD #### LIPR #### [facility] [employer] [address] [place] [phone] Proof Technician: Paco Tatum MDBrain Natriuretic Peptideon 11-25-2021 Natriuretic peptide B (Bld) [Mass/Vol]163 pg/mL<300Mer HealthComment on above: An age-independent cutoff point of 300 pg/ml has a 98% negative predictive value excluding acute heart failure. CBC with Auto Differentialon [id number] Eos #0.22[facility] HealthAbsolute Immature Granulocyte0.10[facility] HealthAbsolute Lymph #2.14[facility] HealthAbsolute [place] #0.58Mercy HealthBasophils (Bld) [#/Vol]0.05 10*3/uLMercy Health Basophils/100 WBC (Bld)1 %0 - 2 %[facility]cy HealthEosinophils/100 WBC (Bld)2 %1 - 4 % [facility] HospitalHematocrit (Bld) [Volume fraction]28.0 %Low36.3 - 47.1 %[facility] Hemoglobin.gastrointestinal spec 1 Ql (Stl)8.8 g/dLLow11.9 - 15.1 g/dLCleveland Clinic Mentor HospitalImmature granulocytes/100 WBC (Bld)1 %Drbz9AaiicCleveland Clinic Mentor HospitalInterpretation and review of laboratory resultsAbnormalCleveland Clinic Mentor HospitalLymphocytes/100 WBC (Bld)22 %Low 24 - 43 %[facility] HospitalH (RBC) [Entitic mass]26.9 pg25.2 - 33.5 pgCleveland Clinic [facility] Hospital MCHC (RBC) [Mass/Vol]31.4 g/dL28.4 - 34.8 g/dLPomerene HospitalV (RBC) [Entitic vol]85.6 fL82.6 - 102.9 fLCleveland Clinic Mentor HospitalMonocytes/100 WBC (Bld)6 %3 - 12 %[facility] HospitalNRBC Automated0.2High0.0 per 100 WBCCleveland Clinic Mentor HospitalPlatelet distribution width (Bld) [Ratio]14.7 %High11.8 - 14.4 %[facility] HospitalPlatelet mean volume (Bld) [Entitic vol]9.8 fL8.1 - 13.5 fLCleveland Clinic Mentor HospitalPlatelets (Bld) [#/Vol]227 10*3/uL [facility] HospitalRBC (Bld) [#/Vol]3.27 10*6/uLLow3.95 - 5.11 m/uLCleveland Clinic Mentor HospitalRBC (Bld) [#/Vol]ANISOCYTOSIS PRESENTPremier Health Miami Valley Hospitalgmented neutrophils/100 WBC (Bld) 68 %High36 - 65 %[facility] HospitalSegs Absolute6.46[facility] HospitalWBC (Bld) [#/Vol]9.6 10*3/uLWisconsin Heart Hospital– WauwatosaCBC with Diffon [id number]. Basophil0.05 k/uL Normal0.00-0.20[facility] HospitalComment on above:Performed By: #### CBC, HEPXA, CMPX, MG, TSHX, TROPI #### [facility] [address] [place] [phone] Proof Technician: Dexter Fried MD #### LIPR #### [address] [address] Proof Technician: Khadra Porter.Imm.Granulocyte0.10 k/uLNormal0.00-0.30[facility] HospitalComveterans affairs medical center on above:Performed By: #### CBC, HEPXA, CMPX, MG, TSHX, TROPI #### [facility] [address] [place] [phone] Proof Technician: Dexter Fried MD #### LIPR #### [address] [address] Proof Technician: Khadra Porter.Neutrophil (Seg)6.46 k/uLNormal1.50-8.10 [facility] HospitalComveterans affairs medical center on above:Performed By: #### CBC, HEPXA, CMPX, MG, TSHX, TROPI #### [facility] [address] [place] [address] Proof Technician: Dexter Fried MD #### LIPR #### [address] [address] Proof Technician: Paco Tatum MDBasophils/100 WBC (Bld)1 %Normal0-2[facility] HospitalComveterans affairs medical center on above:Performed By: #### CBC, HEPXA, CMPX, MG, TSHX, TROPI #### [facility] [address] [place] [address] 207[address] Proof Technician: Dexter Fried MD #### LIPR #### [address] [address] Proof Technician: Paco Tatum MDEosinophils (Bld) [#/Vol]0.22 10*3/uLNormal 0.00-0.44[facility] HospitalComment on above:Performed By: #### CBC, HEPXA, CMPX, MG, TSHX, TROPI #### [facility] [address] [place] [address] Proof Technician: Dexter Fried MD #### LIPR #### [address] [address] Proof Technician: Paco Tatum MDEosinophils/100 WBC (Bld)2 %Normal1-4[facility] HospitalComveterans affairs medical center on above:Performed By: #### CBC, HEPXA, CMPX, MG, TSHX, TROPI #### [facility] [address] [place] [address] Proof Technician: Dexter Fried MD #### LIPR #### [address] [address] Proof Technician: Paco Tatum MDErythrocyte distribution width (RBC) [Ratio]14.7 %High11.8-14.4[facility] HospitalComveterans affairs medical center on above:Performed By: #### CBC, HEPXA, CMPX, MG, TSHX, TROPI #### [facility] [address] [place] [address] Proof Technician: Dexter Fried MD #### LIPR #### [address] [address] Proof Technician: Paco Tatum MDHematocrit (Bld) [Volume fraction]28.0 %Low 36.3-47.1[facility] hospitaly [facility] on above:Performed By: #### CBC, HEPXA, CMPX, MG, TSHX, TROPI #### [facility] [address] [place] [address] Proof Technician: Dexter Fried MD #### LIPR #### [address] [address] Proof Technician: Paco Tatum MDHemoglobin (Bld) [Mass/Vol]8.8 g/dLLow11.9-15.1 [facility] HospitalComveterans affairs medical center on above:Performed By: #### CBC, HEPXA, CMPX, MG, TSHX, TROPI #### [facility] [address] [place] [address] Proof Technician: Dexter Fried MD #### LIPR #### [address] [address] Proof Technician: Paco Tatum MDImmature granulocytes/100 WBC (Bld)1 %Etxj9XgkusCleveland Clinic Marymount HospitalComveterans affairs medical center on above:Performed By: #### CBC, HEPXA, CMPX, MG, TSHX, TROPI #### [facility] [address] [place] [address] Proof Technician: Dexter Fried MD #### LIPR #### [address] [address] Proof Technician: Paco Tatum MDLymphocytes (Bld) [#/Vol]2.14 10*3/uLNormal 1.10-3.70[facility] HospitalComveterans affairs medical center on above:Performed By: #### CBC, HEPXA, CMPX, MG, TSHX, TROPI #### [facility] [address] [place] [address] Proof Technician: Dexter Fried MD #### LIPR #### [address] [address] Proof Technician: Paco Tatum MDLymphocytes/100 WBC (Bld)22 %Aop10-24AqospCleveland Clinic Marymount HospitalComveterans affairs medical center on above:Performed By: #### CBC, HEPXA, CMPX, MG, TSHX, TROPI #### [facility] [address] [place] [address] Proof Technician: Dexter Fried MD #### LIPR #### [address] [address] Proof Technician: OCTAVIA PorterCH (RBC) [Entitic mass]26.9 giGpetgm74.2-33.5 [facility] HospitalComveterans affairs medical center on above:Performed By: #### CBC, HEPXA, CMPX, MG, TSHX, TROPI #### [facility] [address] [place] [address] Proof Technician: Dexter Fried MD #### LIPR #### [address] [address] Proof Technician: AMIRA PorterC (RBC) [Mass/Vol]31.4 g/kXBzdqva26.4-34.8 [facility] on above:Performed By: #### CBC, HEPXA, CMPX, MG, TSHX, TROPI #### [facility] [address] [place] [phone] Proof Technician: Dexter Fried MD #### LIPR #### [address] [address] Proof Technician: OCTAVIA PorterCV (RBC) [Entitic vol]85.6 bNQneynh40.6-102.9 [facility] on above:Performed By: #### CBC, HEPXA, CMPX, MG, TSHX, TROPI #### [facility] [address] [place] [address] Proof Technician: Dexter Fried MD #### LIPR #### [address] [address] Proof Technician: Paco Tatum MDMonocytes (Bld) [#/Vol]0.58 10*3/uLNormal 0.10-1.20[facility] on above:Performed By: #### CBC, HEPXA, CMPX, MG, TSHX, TROPI #### [facility] [address] [place] [address] Proof Technician: Dexter Fried MD #### LIPR #### [address] [address] Proof Technician: Paco Tatum MDMonocytes/100 WBC (Bld)6 %Normal3-12[facility] HospitalComveterans affairs medical center on above:Performed By: #### CBC, HEPXA, CMPX, MG, TSHX, TROPI #### [facility] [address] [place] [address] Proof Technician: Dexter Fried MD #### LIPR #### [address] [address] Proof Technician: Paco Tatum MDNeutrophil (Seg)68 %Yvcc93-78WvrhjAccess Hospital Dayton on above:Performed By: #### CBC, HEPXA, CMPX, MG, TSHX, TROPI #### [facility] [address] [place] [phone] Proof Technician: Dexter Fried MD #### LIPR #### [address] [address] Proof Technician: Paco Tatum MDNRBC Automated0.2 per 100 WBCHigh0.0[facility] on above:Performed By: #### CBC, HEPXA, CMPX, MG, TSHX, TROPI #### [facility] [address] [place] [address] Proof Technician: Dexter Fried MD #### LIPR #### [address] [address] Proof Technician: Keysha Porter mean volume (Bld) [Entitic vol]9.8 fL Normal8.1-13.5[facility] on above:Performed By: #### CBC, HEPXA, CMPX, MG, TSHX, TROPI #### [facility] [address] [place] [address] Proof Technician: Dexter Fried MD #### LIPR #### [address] [address] Proof Technician: Jason Porter (Bld) [#/Vol]227 10*3/jVGmpwrr505-255 [facility] on above:Performed By: #### CBC, HEPXA, CMPX, MG, TSHX, TROPI #### [facility] [address] [place] [address] Proof Technician: Dexter Fried MD #### LIPR #### [address] [address] Proof Technician: PATRICIA Porter (Bld) [#/Vol]3.27 10*6/uLLow3.95-5.11[facility] on above:Performed By: #### CBC, HEPXA, CMPX, MG, TSHX, TROPI #### [facility] [address] [place] [address] Proof Technician: Dexter Fried MD #### LIPR #### [address] [place] [address] Proof Technician: PATRICIA Porter morphology finding Nom (Bld)ANISOCYTOSIS PRESENTNormalMercy Multicare Tacoma General HospitalComment on above:Performed By: #### CBC, HEPXA, CMPX, MG, TSHX, TROPI #### [facility] [address] [place], [place] [phone] Proof Technician: Dexter Fried MD #### LIPR #### [address] [address] Proof Technician: Paco Tatum MDWBC (Bld) [#/Vol]9.6 10*3/uLNormal3.5-11.3[facility] HospitalComment on above:Performed By: #### CBC, HEPXA, CMPX, MG, TSHX, TROPI #### [facility] [address] [place] [address]62 Proof Technician: Dexter Fried MD #### LIPR #### [address] [address] Proof Technician: Paco Tatum MDHepatic Function Panelon [id number] [Mass/Vol]3.2 g/dLLow3.5 - 5.2 g/dLMercy HealthALP (Bld) [Catalytic activity/Vol]102 U/L35 - 104 U/LMercy HealthALT [Catalytic activity/Vol]44 U/L High5 - 33 U/LMercy HealthAST [Catalytic activity/Vol]29 U/L<32[facility] Bilirubin [Mass/Vol]0.13 mg/dLLow0.3 - 1.2 mg/dLMercy HealthBilirubin, Indirect Can not be calculated0.00 - 1.00 mg/dLMercy HealthBilirubin.indirect [Mass/Vol] mg/dL<0.31 mg/dLMercy HealthFree PSA/Total PSA [Mass fraction]6.2 g/dLLow6.4 - 8.3 g/dLCleveland Clinic Mentor HospitalLactate Dehydrogenaseon 09-34-3499CKB [Catalytic activity/Vol]183 U/FPipjof950-461LrhevCleveland Clinic Marymount HospitalComment on above: Performed By: #### CBC, HEPXA, CMPX, MG, TSHX, TROPI #### [facility] [address] [place] [address] Proof Technician: Dexter Fried MD #### LIPR #### [address] [address] Proof Technician: Paco Tatum MDLD183 U/L135 - 214 U/LMWyandot Memorial HospitalLiver Profile on 05-18-6959Yklmjdy [Mass/Vol]3.2 g/dLLow3.5-5.2MSwedish Medical Center IssaquahComment on above:Performed By: #### CBC, HEPXA, CMPX, MG, TSHX, TROPI #### [facility] [address] [place] [address] Proof Technician: Dexter Fried MD #### LIPR #### [address] [address] Proof Technician: Dinah Porter Onsz976 U/KVyanse11-969GrprbCleveland Clinic Marymount HospitalComveterans affairs medical center on above:Performed By: #### CBC, HEPXA, CMPX, MG, TSHX, TROPI #### [facility] [address] [place] [address] Proof Technician: Dexter Fried MD #### LIPR #### [address] [address] Proof Technician: Paco Tatum MDALT [Catalytic activity/Vol]44 U/LHigh5-33[facility] HospitalComment on above:Performed By: #### CBC, HEPXA, CMPX, MG, TSHX, TROPI #### [facility] [address] [place] [address] Proof Technician: Dexter Fried MD #### LIPR #### [address] [address] Proof Technician: Paco Tatum MDAST [Catalytic activity/Vol]29 U/LNormal<32MerColumbia Basin HospitalComment on above:Performed By: #### CBC, HEPXA, CMPX, MG, TSHX, TROPI #### [facility] [address] [place] [address] Proof Technician: Dexter Fried MD #### LIPR #### [address] [address] Proof Technician: Paco Tatum MDBilirubin [Mass/Vol]0.13 mg/dLLow0.3-1.2[facility] on above:Performed By: #### CBC, HEPXA, CMPX, MG, TSHX, TROPI #### [facility] [address] [place] [address] Proof Technician: Dexter Fried MD #### LIPR #### [address] [address] Proof Technician: Paco Tatum MDBilirubin, IndirectCan not be calculatedNormal 0.00-1.00[facility] on above:Performed By: #### CBC, HEPXA, CMPX, MG, TSHX, TROPI #### [facility] [address] [place] [address] Proof Technician: Dexter Fried MD #### LIPR #### [address] [address] Proof Technician: Paco Madoff, MDBilirubin.indirect [Mass/Vol]mg/dLNormal<0.31 [facility] HospitalComment on above:Performed By: #### CBC, HEPXA, CMPX, MG, TSHX, TROPI #### [facility] [place] [address] Proof Technician: Dexter Fried MD #### LIPR #### [address] [address] Proof Technician: Paco Tatum, MDProtein [Mass/Vol]6.2 g/dLLow6.4-8.3[facility] HospitalComment on above:Performed By: #### CBC, HEPXA, CMPX, MG, TSHX, TROPI #### [facility] [address] [place] [address] Proof Technician: Dexter Fried MD #### LIPR #### [address] [address] Proof Technician: Jani Portergnesiumon 29-89-0088Ijsyujhea [Mass/Vol]1.9 mg/dLNormal1.6-2.6[facility] HospitalComment on above:Performed By: #### CBC, HEPXA, CMPX, MG, TSHX, TROPI #### [facility] [address] [place] [address] Proof Technician: Dexter Fried MD #### LIPR #### [address] [address] Proof Technician: Paco Tatum MDMagnesium [Mass/Vol]1.9 mg/dL1.6 - 2.6 mg/dL [facility] HospitalMicroscopic Urinalysison 11-25-2021-[facility] HospitalBacteria, UARARE AbnormalNoneMercy HealthEpithelial Cells UA0 TO 2Mercy HealthInterpretation and review of laboratory resultsAbnormalMercy HealthRBC, UA5 TO 10MerTri-State Memorial HospitalWBC, UA0 TO 2[facility]No Panel Informationon [id number] and review of laboratory resultsAbnormAurora Health Care [facility] Troponinon 85-77-8148Dfzfgvom, High Sens6 ng/LNormal0-14[facility] Comment on above:Result Comment: High Sensitivity Troponin values cannot be compared with other Troponin methodologies. Patients with high levels of Biotin oral intake (i.e >5mg/day) may have falsely decreased Troponin levels. Samples collected within 8 hours of biotin intake may require additional information for diagnosis.Performed By: #### CBC, HEPXA, CMPX, MG, TSHX, TROPI #### [facility] [address] [place] [address] Proof Technician: Dexter Fried MD #### LIPR #### [facility] [employer] [address] [place] [address] [phone] Proof Technician: Yuri Porter, High Sensitivity6 ng/L0 - 14 ng/LMWyandot Memorial HospitalComment on above: High Sensitivity Troponin values cannot be compared with other Troponin methodologies. Patients with high levels of Biotin oral intake (i.e >5mg/day) may have falsely decreased Troponin levels. Samples collected within 8 hours of biotin intake may require additional information for diagnosis. UA w/Reflex Cultureon [id number], SemiQt,UrNegativeNormalNEGCleveland Clinic Marymount HospitalComment on above:Performed By: #### CBC, HEPXA, CMPX, MG, TSHX, TROPI #### [facility] [address] [place] [address] Proof Technician: Dexter Fried MD #### LIPR #### [facility] [employer] [address] [place] [address] Proof Technician: Paco Tatum MDBlood, Urine3+AbnormalNEGCleveland Clinic Marymount Hospital Comment on above:Performed By: #### CBC, HEPXA, CMPX, MG, TSHX, TROPI #### [facility] [place] [address] Proof Technician: Dexter Fried MD #### LIPR #### [address] [address] Proof Technician: Kathie Porterrity (U)SLIGHTLY CLOUDYAbnormalCLEARMercFormerly West Seattle Psychiatric HospitalComment on above:Performed By: #### CBC, HEPXA, CMPX, MG, TSHX, TROPI #### [facility] [address] [place] [address] Proof Technician: Dexter Fried MD #### LIPR #### [address] [address] Proof Technician: CELESTE Porterolor (U)AMBERAbnormalYGenesis Hospital Comment on above:Performed By: #### CBC, HEPXA, CMPX, MG, TSHX, TROPI #### [facility] [address] [place] [address] Proof Technician: Dexter Fried MD #### LIPR #### [address] [address] Proof Technician: Paco Tatum MDGlucose Ql (U)NegativeNormalNEGAccess Hospital Dayton on above:Performed By: #### CBC, HEPXA, CMPX, MG, TSHX, TROPI #### [facility] [address] [place] [address] Proof Technician: Dexter Fried MD #### LIPR #### [address] [address] Proof Technician: Paco Tatum MDKetones Ql (U)NegativeNormalNEGMerColumbia Basin HospitalComment on above:Performed By: #### CBC, HEPXA, CMPX, MG, TSHX, TROPI #### [facility] [address] [place] [address] Proof Technician: Dexter Fried MD #### LIPR #### [address] [address] Proof Technician: Paco Tatum MDLeukocyte esterase Test strip Ql (U)TRACE AbnormalNEGCleveland Clinic Marymount HospitalComment on above:Performed By: #### CBC, HEPXA, CMPX, MG, TSHX, TROPI #### [facility] [address] [place] [address] Proof Technician: Dexter Fried MD #### LIPR #### [address] [address] Proof Technician: Paco Tatum MDNitrite,UrNegativeNormalNEGCleveland Clinic Marymount HospitalComment on above:Performed By: #### CBC, HEPXA, CMPX, MG, TSHX, TROPI #### [facility] [address] [place] [address] Proof Technician: Dexter Fried MD #### LIPR #### [address] [address] Proof Technician: Paco Tatum [facility],Ur6.0Wwfmoq0.0-8.0[facility] Comment on above:Performed By: #### CBC, HEPXA, CMPX, MG, TSHX, TROPI #### [facility] [address] [place] [address] 19965 Proof Technician: Dexter Fried MD #### LIPR #### [address] [address] Proof Technician: RAHUL Porterrotein Ql (U)NegativeNormalNEGMercy Multicare Tacoma General HospitalComveterans affairs medical center on above:Performed By: #### CBC, HEPXA, CMPX, MG, TSHX, TROPI #### [facility] [address] [place] [address] Proof Technician: Dexter Fried MD #### LIPR #### [address] [address] Proof Technician: KELLY Porterpec. [place],Ur1.459Mzomba9.005-1.030[facility] on above:Performed By: #### CBC, HEPXA, CMPX, MG, TSHX, TROPI #### [facility] [address] [place] [address] Proof Technician: Dexter Fried MD #### LIPR #### [address] [address] Proof Technician: Paco Tatum MDUrobilinogen,UrNormalNormalNORMMercy [facility] HospitalComveterans affairs medical center on above:Performed By: #### CBC, HEPXA, CMPX, MG, TSHX, TROPI #### [facility] [address] [place] [address] Proof Technician: Dexter Fried MD #### LIPR #### [address] [address] Proof Technician: Paco Tatum MDUrinalysis with Reflex to Cultureon 11-25-2021 Bilirubin UrineNegativeNEGATIVEMercy HealthColor, UAAMBERAbnormalYellowMercy HealthGlucose, UrNegativeNEGATIVEMercy HealthInterpretation and review of laboratory resultsAbnormalMercy HealthKetones Ql (U)NegativeNEGATIVEMercy Health Leukocyte esterase Test strip Ql (U)TRACEAbnormalNEGATIVEMercy HealthNitrite, UrineNegativeNEGATIVEMercy HealthpH, UA6.0Mercy HealthProtein, UANegative NEGATIVEMercy HealthSpecific [place], UA1.015Mercy HealthTurbidity UASLIGHTLY CLOUDYAbnormalClearMercy HealthUrine Hgb3+AbnormalNEGATIVEMercy Health Urobilinogen, UrineNormalNormalMercy HealthMercy HealthUrinalysis,Microon 11-25-2021-----NormalMercy Multicare Tacoma General HospitalComment on above:Performed By: #### CBC, HEPXA, CMPX, MG, TSHX, TROPI #### [facility] [address] [place] [address] Proof Technician: Dexter Fried MD #### LIPR #### [address] [address] Proof Technician: Paco Tatum MDBacteriaRAREAbDoctors Hospital Comment on above:Performed By: #### CBC, HEPXA, CMPX, MG, TSHX, TROPI #### [facility] [address] [place] [address] Proof Technician: Dexter Fried MD #### LIPR #### [address] [phone] Proof Technician: Paco Tatum MDEpithelial cells LM Ql (Urine sed)0 TO 2Normal 0-5MerColumbia Basin HospitalComment on above:Performed By: #### CBC, HEPXA, CMPX, MG, TSHX, TROPI #### [facility] [address] [place] [address] Proof Technician: Dexter Fried MD #### LIPR #### [address] [address] Proof Technician: Paco Tatum MDUrine RBC's5 TO 64Vfuhix8-4Iokxz [facility] HospitalComment on above:Performed By: #### CBC, HEPXA, CMPX, MG, TSHX, TROPI #### [facility] [address] [place], [place] [phone] Proof Technician: Dexter Fried MD #### LIPR #### [address] [phone] Proof Technician: Paco Tatum MDUrine WBC's0 TO 7Oanems3-4IibtbCleveland Clinic Marymount HospitalComment on above:Performed By: #### CBC, HEPXA, CMPX, MG, TSHX, TROPI #### [facility] [address] [place] [address] [phone] Proof Technician: Dexter Fried MD #### LIPR #### [address] [phone] Proof Technician: Paco Tatum [facility] GLUCOSEon 16-66-2468Shfzwmy [Mass/Vol]123 mg/dLCritically gxvu22-000WljAvita Health SystemComment on above: Performed By: #### CVDTBH #### [facility] [address] [address] [address] Emmanuel Cantu AUTO DIFFon 63-51-5108OPKU #0.0 103/ulNormal0.0-0.1The [facility] Medical CenterComment on above:Performed By: #### CBC #### [facility] [address] [address] [address] Emmanuel Russophils/100 WBC (Bld)0.3 %Normal0.2-2.0The [facility] Comment on above:Performed By: #### CBC #### [facility] [address] [address] [address] Emmanuel Hopkins #0.2 103/ulNormal0.0-0.7The [facility] Medical CenterComment on above: Performed By: #### CBC #### [facility] [address] [address] [address] Emmanuel Brownosinophils/100 WBC (Bld)1.4 %Normal0.9-7.0The [facility] Comment on above:Performed By: #### CBC #### [facility] [address] [address] [address] Emmanuel Brownrythrocyte distribution width (RBC) [Ratio]14.7 %Adwefm14.0-15.0 [facility] Health SystemComment on above:Performed By: #### CBC #### [facility] [address] [place] [address] Dr. Emmanuel MurrayHematocrit (Bld) [Volume fraction]28.9 %Critically low36.0-48.0 The [facility] Medical CenterComment on above:Performed By: #### CBC #### [facility] [address] [place] [address] Dr. Emmanuel MurrayHemoglobin (Bld) [Mass/Vol]9.5 g/dLCritically low12.0-16.0The [facility] CenterComment on above:Performed By: #### CBC #### [facility] [address] [place] [address] Dr. Emmanuel Gunderson #0.09 10e3/ulCritically high0.00-0.03The [facility] Comment on above:Performed By: #### CBC #### [facility] [address] [place] [address] Dr. Emmanule Gunderson %0.8 %Critically high0.0-0.5The [facility] Medical CenterComment on above:Performed By: #### CBC #### [facility] [address] [place] [address] Dr. Emmanuel CatesH #2.5 103/ulNormal1.2-3.8The [facility] Medical CenterComment on above:Performed By: #### CBC #### [facility] [address] [place] [address] Dr. Emmanuel Hanksmphocytes/100 WBC (Bld)21.4 %Famybe54.5-60.0The Nichole HospitalComment on above:Performed By: #### CBC #### [facility] [address] [address] [address] Emmanuel Guevara DIFF REQNONormalThe [facility]woodsment on above: Performed By: #### CBC #### [facility] [address] [address] [address] Emmanuel Marcus (RBC) [Entitic mass]28.1 dpTgvcci36.7-34.0The [facility] CenterComment on above:Performed By: #### CBC #### [facility] [address] [address] [address] Emmanuel Marcus (RBC) [Mass/Vol]32.9 g/vOVylbii60.9-35.2The [facility] on above:Performed By: #### CBC #### [facility] [address] [place] [address] Dr. Emmanuel Marcus (RBC) [Entitic vol]85.5 cRTgffkg51.0-99.0The [facility]ment on above:Performed By: #### CBC #### [facility] [address] [place] [address] Dr. Emmanuel Baldwin #0.6 103/ulNormal0.3-0.8The [facility] on above:Performed By: #### CBC #### [facility] [address] [place] [address] Dr. Emmanuel Sanchezocytes/100 WBC (Bld)5.2 %Normal1.7-12.0[facility] Comment on above:Performed By: #### CBC #### [facility] [address] [address] [address] Emmanuel Hannah #8.1 103/ulCritically high1.4-6.5The [facility] Comment on above:Performed By: #### CBC #### [facility] [address] [place] [address] Dr. Emmanuel Villaltautrophils/100 WBC (Bld)70.9 %Cssdso31.0-75.0The Nich[facility] HospitalComment on above:Performed By: #### CBC #### [facility] [address] [place] [address] Dr. Emmanuel Coboslet mean volume (Bld) [Entitic vol]10.0 fLNormal9.5-13.5The [facility] CenterComment on above:Performed By: #### CBC #### [facility] [address] [place] [address] Dr. Emmanuel MurrayPLT186 103/nfKxbrxa999-117Gfa [facility] CenterComment on above: Performed By: #### CBC #### [facility] [address] [place] [address] Dr. Emmanule MurrayRBC3.38 106/ulCritically low4.20-5.40The [facility] CenterComment on above:Performed By: #### CBC #### [facility] [address] [place] [address] Dr. Emmanuel MurrayWBC11.4 103/ulCritically high4.0-11.0The [facility] CenterComment on above:Performed By: #### CBC #### [facility] [address] [place] [address] Dr. Emmanuel Cantu AUTO DIFFon 15-59-6262JFEE #0.1 103/ulNormal0.0-0.1The [facility] on above:Performed By: #### CVDTBH #### [facility] [address] [place] [address] Dr. Emmanuel MurrayBasophils/100 WBC (Bld)0.4 %Normal0.2-2.0The [facility] Comment on above:Performed By: #### CVDTBH #### [facility] [address] [place] [address] Dr. Emmanuel Hopkins #0.1 103/ulNormal0.0-0.7The [facility] on above: Performed By: #### CVDTBH #### [facility] [address] [place] [address] Dr. Emmanuel Brownosinophils/100 WBC (Bld)0.4 %Critically low0.9-7.0The [facility] CenterComment on above:Performed By: #### CVDTBH #### [facility] [address] [place] [address] Dr. Emmanuel Brownrythrocyte distribution width (RBC) [Ratio]14.8 %Onrlxk39.0-15.0 [facility] SystemComment on above:Performed By: #### CVDTBH #### [facility] [address] [place] [address] Dr. Emmanuel MurrayHematocrit (Bld) [Volume fraction]32.6 %Critically low36.0-48.0 The [facility] CenterComment on above:Performed By: #### CVDTBH #### [facility] [address] [place] [address] Dr. Emmanuel MurrayHemoglobin (Bld) [Mass/Vol]10.6 g/dLCritically low12.0-16.0The [facility] CenterComment on above:Performed By: #### CVDTBH #### [facility] [address] [place] [address] Dr. Emmanuel Gunderson #0.10 10e3/ulCritically high0.00-0.03The [facility] Comment on above:Performed By: #### CVDTBH #### [facility] [address] [place] [address] Dr. Emmanuel MurrayIG %0.9 %Critically high0.0-0.5The [facility] CenterComment on above:Performed By: #### CVDTBH #### [facility] [address] [place] [address] Dr. Emmanuel Dorsey #2.3 103/ulNormal1.2-3.8The [facility] CenterComment on above:Performed By: #### CVDTBH #### [facility] [address] [place] [address] Dr. Emmanuel Hanksmphocytes/100 WBC (Bld)19.6 %Critically low20.5-60.0[facility] SystemComment on above:Performed By: #### CVDTBH #### [facility] [address] [place] [address] Dr. Emmanuel Guevara DIFF REQNONormalThe [facility] CenterComment on above: Performed By: #### CVDTBH #### [facility] [address] [place] [address] Dr. Emmanuel Marcus (RBC) [Entitic mass]27.2 veAqrhtv07.7-34.0The [facility] CenterComment on above:Performed By: #### CVDTBH #### [facility] [address] [place] [address] Dr. Emmanuel Marcus (RBC) [Mass/Vol]32.5 g/cCGdwncz00.9-35.2The [facility] CenterComment on above:Performed By: #### CVDTBH #### [facility] [address] [place] [address] Dr. Emmanuel Marcus (RBC) [Entitic vol]83.6 uVCztmcn03.0-99.0The [facility] CenterComment on above:Performed By: #### CVDTBH #### [facility] [address] [place] [address] Dr. Emmanuel Baldwin #0.5 103/ulNormal0.3-0.8The [facility] CenterComment on above:Performed By: #### CVDTBH #### [facility] [address] [place] [address] Dr. Emmanuel Sanchezocytes/100 WBC (Bld)4.4 %Normal1.7-12.0[facility] Comment on above:Performed By: #### CVDTBH #### [facility] [address] [place] [address] Dr. Emmanuel Hannah #8.7 103/ulCritically high1.4-6.5The [facility] Comment on above:Performed By: #### CVDTBH #### [facility] [address] [place] [address] Dr. Emmanuel Villaltautrophils/100 WBC (Bld)74.3 %Dbehiw59.0-75.0The [facility] CenterComment on above:Performed By: #### CVDTBH #### [facility] [address] [place] [address] Dr. Emmanuel MurrayPlatelet mean volume (Bld) [Entitic vol]10.1 fLNormal9.5-13.5The [facility] CenterComment on above:Performed By: #### CVDTBH #### [facility] [address] [place] [address] Dr. Emmanuel MurrayPLT239 103/gzPgcmjn680-291Qcq [facility] CenterComment on above: Performed By: #### CVDTBH #### [facility] [address] [place] [address] Dr. Emmanuel MurrayRBC3.90 106/ulCritically low4.20-5.40The [facility] CenterComment on above:Performed By: #### CVDTBH #### [facility] [address] [place] [address] Dr. Emmanuel MurrayWBC11.7 103/ulCritically high4.0-11.0The [facility] CenterComment on above:Performed By: #### CVDTBH #### [facility] [address] [place] [address] Dr. Emmanuel MurrayCovid-19 PCR ([facility])on 70-77-5076LGNG-CoV-2 (COVID-19) RNA MYNOR+probe Ql (Unsp spec)Not detectedNormalNOT DETECTEDThe [facility] Comment on above:Result Comment: When diagnostic testing [...] for this test is supported by the [place] of Health and Human Service's declaration that [...] longer be used).Performed By: #### CVDTBH #### [facility] [address] [place] [address] Dr. Emmanuel MurrayDRUG SCREEN RAPID (URINE)on 63-87-2087CKKQpkxpvhtNehqdmSHCMMMEI [facility] SystemComment on above:Performed By: #### DRUGRPD #### [facility] [address] [place] [address] Dr. Emmanuel MurrayBARNegativeNormalNEGATIVEAvita Health SystemComment on above: Performed By: #### DRUGRPD #### [facility] [address] [place] [address] Dr. Emmanuel MurrayBUPNegativeNormalNEGMercer County Community HospitalComment on above: Performed By: #### DRUGRPD #### [facility] [address] [place] [address] Dr. Emmanuel MurrayBZONegativeNormalNEGMercer County Community HospitalComment on above: Performed By: #### DRUGRPD #### [facility] [address] [place] [address] Dr. Emmanuel MurrayCOCNegativermalNEGMercer County Community HospitalComment on above: Performed By: #### DRUGRPD #### [facility] [address] [place] [address] Dr. Emmanuel MillardSouthern Ohio Medical CenterComment on above: Result Comment: AMP (Amphetamine): 500ng/mL, BAR (Barbituates): 200 ng/mL, BZO (Benzodiazepines): 150 ng/mL, BUP (Buprenorphine): 10 ng/mL, PATI (Cocaine): 150 ng/mL, mAMP (Methamphetamine): 500 ng/mL, MTD (Methadone): 200 ng/mL, OPI (Opiates): 100 ng/mL, OXY (Oxycodone): 100 ng/mL, PCP (Phencyclidine): 25 ng/mL, PPX (Propoxyphene): 300 ng/mL, THC (Cannabinoids): 50 ng/mL, TCA (Trycyclic Antidepressants): 300 ng/mLPerformed By: #### DRUGRPD #### [facility] [address] [place] [address] Dr. Emmanuel MurrayDRUG CUT HEADERDRUG CLASS TEST SYSTEM CUT-OFF CONCENTRATIONS ARE FOLLOWS:NormalThe [facility] CenterComment on above:Performed By: #### DRUGRPD #### [facility] [address] [place] [address] Dr. Emmanuel MurraymAMPNegativeNormalNEGATIVEAvita Health SystemComment on above: Performed By: #### DRUGRPD #### [facility] [address] [place] [address] Dr. Emmanuel MurrayMTDNegativeNormalNEGATIVEAvita Health SystemComment on above: Performed By: #### DRUGRPD #### [facility] [address] [place] [address] Dr. Emmanuel MurrayOPINegativeNormalNEGATIVEAvita Health SystemComment on above: Performed By: #### DRUGRPD #### [facility] [address] [place] [address] Dr. Emmanuel MurrayOXYNegativeNormalNEGATIVEAvita Health SystemComment on above: Performed By: #### DRUGRPD #### [facility] [address] [place] [address] Dr. Emmanuel MurrayPCPNegativeNormalNEGATIVEAvita Health SystemComment on above: Performed By: #### DRUGRPD #### [facility] [address] [place] [address] Dr. Emmanuel MurrayPPXNegativeNormalNEGATIVEAvita Health SystemComment on above: Performed By: #### DRUGRPD #### [facility] [address] [place] [address] Dr. Emmanuel MurrayTCANegativeNormalNEGATIVEAvita Health SystemComment on above: Performed By: #### DRUGRPD #### [facility] [address] [place] [address] Dr. Emmanuel MurrayTHCNegativeNormalNEGATIVEAvita Health SystemComment on above: Performed By: #### DRUGRPD #### [facility] [address] [id number] [address] Emmanuel MurrayTYPE AND SCREENon 07-34-4569XTMO AND SCREENNegativeNormalThRegency Hospital Cleveland EastComment on above:Performed By: #### CVDTBH #### [facility] [address] [id number] [address] Emmanuel Murray Vital Signs Date TimeVital SignValuePerforming OjduganihEzbtntdb98-18-2595 13:57-0400Body mass index (BMI) [Ratio]44.21 kg/m2Winter BURTON Work Phone: [phone] SystemRruzpsxmve35-29-4905 13:57-0400Body fdouws181.14 kgWinter BURTON Work Phone: [phone] SystemGcjihmvych64-01-9754 13:57-0400Diastolic blood iiibcogo03 mm[Hg]Winter BURTON Work Phone: [phone] [place], [place] [address]Jhtnajoiye96-07-2634 13:57-0400Systolic blood srwuquzj843 mm[Hg]Winter BURTON Work Phone: [phone] SystemDijybzvzfc56-63-6472 09:13-0400Body mass index (BMI) [Ratio]43.65 kg/v2GxjchjyxNed Spicer NP Work Phone: [facility] SystemTtuydcabcg36-28-4365 09:13-0400Body vfimlk350.78 kgNed Spicer NP Work Phone: [phone] SystemFhiqhhhrvu02-91-4572 09:13-0400Diastolic blood mm[Hg]Ned Spicer NP Work Phone: [phone] SystemLksyugvshp70-34-8211 09:13-0400Systolic blood wwfscgco613 mm[Hg]Ned Spicer NP Work Phone: [facility] SystemVvblbqkvka91-67-2733 10:20-0400Body dejxcv567.9 cmEster Pratt MD Work Phone: [phone])[address] [place], [place] 9259209-19-2025 10:20-0400Body mass index (BMI) [Ratio]43.14 kg/m2Ester Pratt MD Work Phone: [phone])[address] [place], [place] 9259209-19-2025 10:20-0400Body .51 kgEster Pratt MD Work Phone: [phone])[address] [place], [place] 9259209-19-2025 10:20-0400Diastolic blood vhdunujt28 mm[Hg]Ester Pratt MD Work Phone: [phone])[address] [place], [place] 9259209-19-2025 10:20-0400Heart rate 51 /Kelley Pratt MD Work Phone: [phone])[address] [place], [place] 9259209-19-2025 10:20-0400Systolic blood yxvekvbr891 mm[Hg]Ester Pratt MD Work Phone: [phone])[address] [place], [place] 9259209-04-2025 08:53-0400Body mass index (BMI) [Ratio]44.37 kg/c9OcpwppzxNed Spicer RECORDS COORDINATOR Work Phone: [phone]09-04-2025 08:53-0400Body hquoti092.5 kgNed Spicer RECORDS COORDINATOR Work Phone: [phone]-[facility] SystemKvkzarsxfp96-50-7081 08:53-0400Diastolic blood omwpfyre37 mm[Hg]Ned Spicer RECORDS COORDINATOR Work Phone: [phone]-[facility] SystemSklqgopkad48-22-2657 08:53-0400Systolic blood ideujima768 mm[Hg]Ned Spicer RECORDS COORDINATOR Work Phone: [phone]08-11-2025 09:17-0400Body mass index (BMI) [Ratio]43.08 kg/z4Ahpny Carmen DO Work Phone: [facility] SystemIodqxxpbhg19-77-0034 09:17-0400Body koxxgc238.42 kgCorey Carmen DO Work Phone: [facility] SystemAemhdghwcd39-54-0260 09:17-0400Diastolic blood ebtkgkzs73 mm[Hg]Bin Carmen DO Work Phone: [facility] SystemVutuibgiqe41-66-9599 09:17-0400Systolic blood utnqrule818 mm[Hg]Bin Morales DO Work Phone: [facility] SystemAyatrxornd24-35-4523 09:27-0400Body mass index (BMI) [Ratio]42.89 kg/k3[facility]au[facility]07-11-2025 09:27-0400Body weight 102.97 [facility]07-11-2025 09:27-0400Diastolic blood mm[Hg][facility]07-11-2025 09:27-0400Systolic blood iabstyba709 mm[Hg][facility]04-24-2025 11:00-0400Body kahjho191.9 cmKatjackelyn Hoitenga PA-C Work Phone: [phone]04-24-2025 11:00-0400Body mass index (BMI) [Ratio]45.31 kg/g3Ojnzlofi Hoitenga PA-C Work Phone: [phone]04-24-2025 11:00-0400Body .73 kgKatelviaeen Hoitenga PA-C Work Phone: [phone]-[facility]04-24-2025 11:00-0400Diastolic blood ivltmpof06 mm[Hg]Moriah Hoitenga PA-C Work Phone: [phone]04-24-2025 11:00-0400Heart rate 84 /minKathleen Hoitenga PA-C Work Phone: [phone]04-24-2025 11:00-7128QpR3% (BldA) [Mass fraction]100 %Moriah Hoitenga PA-C Work Phone: [phone]04-24-2025 11:00-0400Systolic blood tnkgwyer188 mm[Hg]Moriah Hoitenga PA-C Work Phone: [phone]01-31-2025 15:32-0500Body yzkkjg481.9 cmRiddhi Plata MD Work Phone: [phone]01-31-2025 15:32-0500Body mass index (BMI) [Ratio]50.26 kg/m2Riddhi Plata MD Work Phone: [phone])[address] [place], [place] 0624801-31-2025 15:32-0500Body wjnaqw843.66 kgRiddhi Plata MD Work Phone: [phone])[address] [place], [place] 0624801-31-2025 15:32-0500Diastolic blood edlnuyym63 mm[Hg]Riddhi Plata MD Work Phone: [phone])[address] [place], [place] 0624801-31-2025 15:32-0500Heart rate91 /min Riddhi Plata MD Work Phone: [phone])[address] [place], [place] 0624801-31-2025 15:32-0500Respiratory rate18 /minRiddhi Plata MD Work Phone: [phone] [place], [place] 0624801-31-2025 15:32-1956UfF7% (BldA) [Mass fraction]97 %Riddhi Plata MD Work Phone: [phone])[address] [place], [place] 0624801-31-2025 15:32-0500Systolic blood dbwazpnq455 mm[Hg]Riddhi Plata MD Work Phone: [phone])[address] [place], [place] 0624812-16-2024 08:16-0500Body yvhehl641.9 cmRiddhi Plata MD Work Phone: [phone])[address] [place] [address]-16-2024 08:16-0500Body mass index (BMI) [Ratio]53.81 kg/m2Riddhi Plata MD Work Phone: 1(158)[address] [place] [address]-16-2024 08:16-0500Body zxmaol877.18 kgRiddhi Plata MD Work Phone: [phone])[address] [place] [address]-16-2024 08:16-0500Diastolic blood bgcznyua00 mm[Hg]Riddhi Plata MD Work Phone: [phone])[address] [place] [address]-16-2024 08:16-0500Heart rate86 /min Riddhi Plata MD Work Phone: [phone] [place], [place] [address]Xxqaagwgjr60-51-3945 08:16-0500Respiratory rate18 /minRiddhi Plata MD Work Phone: [phone] [place], [place] [address]Vwcvegaynq68-50-1745 08:16-6947GoF5% (BldA) [Mass fraction]98 %Riddhi Plata MD Work Phone: [phone])[address]12-16-2024 08:16-0500Systolic blood evntsgkn276 mm[Hg]Riddhi Plata MD Work Phone: [phone])[address]10-03-2024 15:47-0400Body caqwls470.9 cmRiddhi Plata MD Work Phone: [phone])[address] [place], [place] 0624810-03-2024 15:47-0400Body mass index (BMI) [Ratio]60.27 kg/m2Riddhi Plata MD Work Phone: [phone])[address]10-03-2024 15:47-0400Body wawgmc101.7 kgRiddhi Plata MD Work Phone: [phone])[address] [place], [place] 0624810-03-2024 15:47-0400Respiratory rate18 /Stacy Plata MD Work Phone: [phone]09-25-2024 10:00-0400Body fhekyi482.9 cmSsimonenon [facility]09-25-2024 10:00-0400Body mass index (BMI) [Ratio]60.95 kg/d6Asfywim [facility]09-25-2024 10:00-0400Body xpoglg247.33 kgShannon [facility]08-22-2024 12:07-0400Body qouigs703.9 cmMattblair Manzo MD Work Phone: [facility] SystemComment on above:5'1 05-01-2024 12:07-0400Body mass index (BMI) [Ratio]63.86 kg/c0Cupnjokblair Manzo MD Work Phone: [facility]08-22-2024 12:07-0400Body igmbbx708.32 kgMattlaw Anais GUERRERO Work Phone: 1(305)[facility] [place], [place] 5986708-22-2024 12:07-0400Diastolic blood slzedhly03 mm[Hg]Tonia Manzo MD Work Phone: 1(356)[facility] [place], [place] 5986708-22-2024 12:07-0400Heart rate 108 /minMattlaw Anais GUERRERO Work Phone: 1(211)[facility] [place], [place] 5986708-22-2024 12:07-0400Systolic blood utkekrjg323 mm[Hg]Tonia Manzo MD Work Phone: 1([phone] [place], [place] 5351708-15-2024 08:54-0400Body .9 cmMalionel Manzo MD Work Phone: [phone] [place], [place] 5351708-15-2024 08:35-0400Body ryywrhisyvb03.2 [degF]Tonia Manzo MD Work Phone: [phone] [place], [place] 5351708-15-2024 08:35-0400Diastolic blood ucowydwh31 mm[Hg]Tonia Manzo MD Work Phone: [phone] [place], [place] 5351708-15-2024 08:35-0400Heart rate 52 /minMattblair Manzo MD Work Phone: 1(540)[address] [place], [place] 5351708-15-2024 08:35-0400 Respiratory rate20 /minMalionel Manzo MD Work Phone: [phone])[address] [place], [place] 5351708-15-2024 08:35-3046QxB2% (BldA) [Mass fraction]98 %Tonia Manzo MD Work Phone: 1(295)[facility] [place], [place] 5986708-15-2024 08:35-0400Systolic blood pbqcrqam547 mm[Hg]Tonia Manzo MD Work Phone: 1(277)[facility] [place], [place] 5986708-15-2024 08:30-0400Body mass index (BMI) [Ratio]66.9 kg/z9GhuwfavTonia Manzo MD Work Phone: [facility]08-15-2024 08:30-0400Body uqhsmg894.6 kgMalionel Manzo MD Work Phone: [facility]08-06-2024 08:49-0400Body kqoeyw729.[address]08-06-2024 08:49-0400Body mass index (BMI) [Ratio]67.98 kg/z2Ejxlb[address]08-06-2024 08:49-0400Body sbojamdfdid76.2 [degF][address]08-06-2024 08:49-0400Body nqkvyu194.[address]08-06-2024 08:49-0400Diastolic blood mm[Hg][address]08-06-2024 08:49-0400Heart rate 76 /min[address]08-06-2024 08:49-0400Respiratory rate18 /min[address]08-06-2024 08:49-4826IyC6% (BldA) [Mass fraction]97 %[address]08-06-2024 08:49-0400Systolic blood pljgomji743 mm[Hg][address]07-18-2024 13:33-0400Body height 157.5 cmMattblair Manzo MD Work Phone: [facility]07-18-2024 13:33-0400Body mass index (BMI) [Ratio]65.43 kg/n4Myoxrppblair Manzo MD Work Phone: [facility]07-18-2024 13:33-0400Body jouxca574.3 kgTonia Manzo MD Work Phone: [facility]07-18-2024 13:33-0400Diastolic blood adrqvatv26 mm[Hg]Tonia Manzo MD Work Phone: [facility]07-18-2024 13:33-0400Heart rate 76 /minMatthew Anais GUERRERO Work Phone: [facility] e(ye)BRAIN Usuksc22-69-3845 13:33-0400 Respiratory rate16 /minMattblair Manzo MD Work Phone: [facility] e(ye)BRAIN Wlhxsm59-50-2160 13:33-0400Systolic blood mm[Hg]Tonia Manzo MD Work Phone: [facility]07-08-2024 08:27-0400Body tuntpr518.5 April Venegas MD Work Phone: [phone]-[facility] '[facility] TapCh[facility] e(ye)BRAIN Nbafod47-43-4978 08:27-0400Body mass index (BMI) [Ratio]66.94 kg/i7Hgooknseferino Venegas MD Work Phone: [phone]-[facility] '[facility] TapMount [facility]el Health System07-08-2024 08:27-0400Body .02 kgThseferino Venegas MD Work Phone: [phone]-[facility] TapCh[facility] e(ye)BRAIN Vqunwz73-41-2686 08:27-0400Diastolic blood cjglylmd22 mm[Hg]Cr Venegas MD Work Phone: [phone]-[facility] '[facility] TapChillicothe [facility] e(ye)BRAIN Rbtgqq12-56-5241 08:27-0400Heart rate 80 /minCr Venegas MD Work Phone: [phone]-Tap [facility] TapCh[facility] e(ye)BRAIN Idlhlv15-34-6222 08:27-9572WnJ2% (BldA) [Mass fraction]97 %Cr Venegas MD Work Phone: [phone]-Tap 'n TapMount [facility]el [facility]07-08-2024 08:27-0400Systolic blood grspsjac728 mm[Hg]Cr Venegas MD Work Phone: [phone]-Tap 'n TapMount Carmel Health System06-27-2024 13:00-0400Body mass index (BMI) [Ratio]66.21 kg/n8Ohjbkxt Sorg [facility]06-27-2024 13:00-0400Body xixhsu841.2 kgShannon Sorg [facility]05-30-2024 13:00-0400Body mass index (BMI) [Ratio]66.76 kg/h0Mlgozlx Sorg RDProMedica Health Ztuwdd33-84-2488 13:00-0400Body qbavhl069.56 kgJenny [facility]04-24-2024 12:00-0400Body mass index (BMI) [Ratio]65.41 kg/m2 Jenny [facility]04-24-2024 12:00-0400Body gxewvg590.21 kg Jenny [facility]03-27-2024 13:00-0400Body mass index (BMI) [Ratio]65.92 kg/z3Shuflhv [facility]03-27-2024 13:00-0400 Body zqadkn248.48 kgJenny [facility]02-29-2024 11:00-0500 Body mass index (BMI) [Ratio]65.66 kg/e7Elizlqs [facility] 11-08-2023 11:00-0500Body twvhyv108.84 kgdoug [facility] 10-10-2023 07:53-0500Body yydmvc841.9 cmTheodora Early MD Work Phone: [phone]01-31-2024 07:53-0500Body mass index (BMI) [Ratio]68.4 kg/j9ZkifudTheodora Early MD Work Phone: [phone]01-31-2024 07:53-0500Body yjjtnl562.2 kgTheodora Early MD Work Phone: [phone])[address]01-31-2024 07:53-0500Diastolic blood mm[Hg]Theodora Early MD Work Phone: [phone])[address]01-31-2024 07:53-0500Heart rate 78 /minTheodora Early MD Work Phone: [phone]01-31-2024 07:53-3539ZxK2% (BldA) [Mass fraction]97 %Theodora Early MD Work Phone: [phone])095-[address] [place], [place] [address]01-31-2024 07:53-0500Systolic blood lvwlabon192 mm[Hg]Theodora Early MD Work Phone: [facility]01-30-2024 11:00-0500Body mass index (BMI) [Ratio]67.38 kg/g6Ejrzjyd [facility]01-30-2024 11:00-0500Body lgweab881.75 kgAddyannon [facility]01-18-2024 11:41-0500Body coyxvg855.9 Michael Vidal DO Work Phone: [facility]01-18-2024 11:41-0500Body mass index (BMI) [Ratio]67.85 kg/c2MwsrbvJalyn Vidal DO Work Phone: [facility]01-18-2024 11:41-0500Body .89 kgJalyn Vidal DO Work Phone: [facility]01-18-2024 11:41-0500Diastolic blood oljcxyvl72 mm[Hg]Jalyn Vidal DO Work Phone: [facility]01-18-2024 11:41-0500Heart rate 68 /minSradha Vidal DO Work Phone: [facility]01-18-2024 11:41-6987UkG3% (BldA) [Mass fraction]98 %Jalyn Vidal DO Work Phone: [facility]01-18-2024 11:41-0500Systolic blood ooagdmie886 mm[Hg]Jalyn Vidal DO Work Phone: [facility]12-28-2023 11:00-0500Body mass index (BMI) [Ratio]67.17 kg/n6Ilmggkc [facility]12-28-2023 11:00-0500Body .25 kgAddyannon [facility]03-28-2022 15:29-0400Body qrwain444.9 Rosalie Sosa MD Work Phone: [place] [address]Bohfnc86-28-4103 15:29-0400Body mass index (BMI) [Ratio]51.51 kg/i3YzhdapdDuarte Sosa MD Work Phone: [place] [address]Wubbtg39-78-5379 15:29-0400Body bmzoivcaboz42.01 [degF]Duarte Sosa MD Work Phone: [place] [address]Gwpshu65-86-8440 15:29-0400Body dbxakz327.65 kg Duarte Sosa MD Work Phone: [place] [address]Sltlgb97-07-8297 15:29-0400Diastolic blood etrirleg09 mm[Hg]Duarte Sosa MD Work Phone: [place] [address]Anthwv95-66-3691 15:29-0400Heart rate62 /min Duarte Sosa MD Work Phone: [place] [address]Mgpebt96-47-1175 15:29-0400Respiratory rate14 /minDuarte Sosa MD Work Phone: [place] [address]Eqnecb40-96-5976 15:29-7531RiB9% (BldA) [Mass fraction]100 %Duarte Sosa MD Work Phone: [place] [address]Toxerk46-58-9435 15:29-0400Systolic blood wmztuxlv900 mm[Hg]Duarte Sosa MD Work Phone: [place] [address]Dufbfz76-63-5348 15:11-0400Diastolic blood ovwhihyo66 mm[Hg]Gunjan Valentino DO Work Phone: [place] [address]Emivax58-55-6030 15:11-0400Heart rate77 /min Gunjan Valentino DO Work Phone: [place] [address]Tomoko25-28-0397 15:11-0400Systolic blood bvjijbbd311 mm[Hg]Gunjan Valentino DO Work Phone: [place] [address]Dyjtqj26-95-6818 04:14-0400Body wteghlkwfue41.1 [degF]Gunjan Valentino DO Work Phone: [place] [address]Rssdcu89-96-0878 04:00-0400Respiratory rate20 /minAngefredrick Valentino DO Work Phone: [phone] [place], [place] 1571603-24-2022 04:00-3654SvQ2% (BldA) [Mass fraction]95 %Gunjan Valentino DO Work Phone: [phone] named [facility] [place], [place] [address]903-24-2022 00:00-0400Body tpevue994.9 cm Gunjan Valentino DO Work Phone: [phone])[address] [place], [place] 1571603-24-2022 00:00-0400Body mass index (BMI) [Ratio]52.72 kg/u0YlbxagfqGunjan Valentino DO Work Phone: [phone])[address] [place] [address]-24-2022 00:00-0400Body taqsdn686.55 kg Gunjan Valentino DO Work Phone: [phone] [place], [place] 157[address]03-22-2022 09:58-0400Diastolic blood udmjgvdv20 mm[Hg]Marielos Torres MD Work Phone: [phone])[address] [place], [place] 1571603-22-2022 09:58-0400Heart rate84 /min Marielos Torres MD Work Phone: [phone])[address] [place] [address]-22-2022 09:58-0400Respiratory rate18 /minMarielos Torres MD Work Phone: [phone] [place] [address]-22-2022 09:58-0400Systolic blood jkmlusqb453 mm[Hg]Marielos Torres MD Work Phone: [phone] [place] [address]-22-2022 08:01-0400Body szhumnwrmbl89.9 [degF]Marielos Torres MD Work Phone: [phone])[address] [place] [address]-21-2022 08:00-9289MzH0% (BldA) [Mass fraction]95 %Marielos Torres MD Work Phone: [phone])[address] [place] [address]-19-2022 06:15-0400Body hmxlge532.9 cm Marielos Torres MD Work Phone: [phone])[address] [place] [address]-19-2022 06:15-0400Body mass index (BMI) [Ratio]54.8 kg/p9GsnmzszuMarielos Torres MD Work Phone: [phone])297-[address] [place] [address]-19-2022 06:15-0400Body .54 kg Marielos Torres MD Work Phone: [phone])592-[address] [place] [address]-19-2022 01:00-0400Diastolic blood krypledx55 mm[Hg]Tonia Celisverson DO Work Phone: 1([phone])132-[address] [place] [address]-19-2022 01:00-0400Heart rate73 /min Tonia Lani DO Work Phone: 1(325)013-[address] [place] [address]-19-2022 01:00-0400Respiratory rate28 /minMattblair Lani DO Work Phone: [phone])648-[address] [place] [address]-19-2022 01:00-0421HsE0% (BldA) [Mass fraction]96 %Tonia Celisverson DO Work Phone: 1(446)114-[address] [place] [address]-19-2022 01:00-0400Systolic blood fpnzrdpe244 mm[Hg]Tonia Celisverson DO Work Phone: 1([phone])169-[address] [place] [address]-18-2022 18:54-0400Body eachla522.9 cm Tonia Celisverson DO Work Phone: [phone])495-[address] [place] [address]-18-2022 18:54-0400Body mass index (BMI) [Ratio]54.8 kg/p3Dccvhoj Lani DO Work Phone: 1(706)505-[address] [place] [address]-18-2022 18:54-0400Body rgdljaruvzo65.2 [degF]Tonia Celisverson DO Work Phone: [phone])907-[address] [place] [address]-18-2022 18:54-0400Body mfkotr322.54 kg Tonia Celisverson DO Work Phone: [phone]-[facility] Encounters Encounter DateEncounter TypeCare ProviderFacilityStart: 07-05-2025 End: 49-99-8294Didwaraxc Result EncounterCorey Carmen DO Work Phone: NORL External Department UnsolicitedStart: 07-05-2025 End: 94-93-8767Skeqizjdp Result EncounterCorey Carmen DO Work Phone: NORE External Department UnsolicitedStart: 07-01-2025 End: 71-50-7882Wkeafaify Result EncounterGeneric External Data ProviderNOMS External Department UnsolicitedStart: 07-01-2025 End: 72-78-8628Ufunfrxky Result EncounterGeneric External Data ProviderNOMS External Department UnsolicitedStart: 06-25-2025 End: 06-46-9853Edthbd OnlyAmy Miami LPNMaternal- Medicine at [facility] HospitalComment on above:History of gestational diabetes in prior , currently in second trimester (PrimaryDx); History of prediabetes; History of gestational diabetes in prior , currently Start: 06-24-2025 End: 28-66-2259Aztwmoal flow sheetWinter BURTON Work Phone: [facility] OBGYNComment on above:Gallstones and inflammation of gallbladder without obstruction (Primary Dx); Second trimester ([facility]); 23 weeks gestation of ([facility]); History of diet controlled gestational diabetes mellitus (GDM); Preeclampsia in period ([facility]); History of pulmonary embolism; Primary hypertension; Diabetes mellitus screeningStart: 06-24-2025 End: 01-82-6276fffmjujbddMNR RAMEYNot AvailableStart: 06-23-2025 End: 19-58-3216bajbiyunkyZIAZ Jonas [facility] HospitalStart: 06-22-2025 End: 55-60-5614Ghvypqnoj encounterAmy Edwige LPNMaternal- Medicine at [facility]ertart: 06-17-2025 End: 93-52-3931Axrovhrac encounterAmy Miami LPNMaternal- Medicine at [facility]ertart: 06-17-2025 End: 76-02-1852Qkiyhlpov department patient visitRIDDHI Mcdaniel [facility] Hospitaltart: 06-10-2025 End: 74-30-0083Xiovmy flowsSagar Spicer NP Work Phone: [facility] OBGYNStart: 06-10-2025 End: 59-92-3309Egnwnz flowsheetNed Spicer NP Work Phone: noMS [facility] OBGYNStart: 06-10-2025 End: 41-84-2856Fncsxxddp Result EncounterNed Spicer NP Work Phone: no External Department UnsolicitedStart: 06-10-2025 End: 59-14-9046Pjnmmdh encounter procedureNed Spicer NP Work Phone: NO HealthcareStart: 06-10-2025 End: 41-06-3238Ktiasiet flow sheetNed Spicer RECORDS COORDINATOR Work Phone: noMS [facility] OBGYNComment on above:21 weeks gestation of ([facility]); Well woman exam; Second trimester ([facility]); Screen for STD (sexually transmitted disease); Well woman exam with routine gynecological exam; Diabetes mellitus screening; Iron deficiency anemia, unspecified iron deficiency anemia typeStart: 06-10-2025 End: 61-54-0930hdkukjkjtzLJKQAGUR EBERLYNot AvailableStart: 06-08-2025 End: 23-86-0204UvgjzwSamantha Pratt MD Work Phone: [phone]-Akxmv [facility] Comment on above:History of Bonnie-en-Y gastric bypass; Postsurgical malabsorption; Malnutrition following gastrointestinal surgery; Folate deficiency; Iron deficiencyStart: 05-29-2025 End: 61-57-9082Qtweku consultation new/estab patient 80 Kelley Pratt MD Work Phone: [phone]-Gldjp [facility] Comment on above:History of maternal pulmonary embolus (Primary Dx); 20 weeks gestation of ; Chronic hypertension affecting ; History of pre-eclampsia in prior , currently in second trimester; History of gestational diabetes in prior , currently in second trimester; History of prediabetes; Bariatric surgery status complicating , second trimester; Severe obesity due to excess calories affecting , antepartum ([facility]); Obstructive sleep apnea; History of gestational diabetes in prior , currently ; Depression affecting ; Anxiety disorder affecting , antepartumStart: 05-29-2025 End: 11-12-6002Tvgmdi OnlyAmy Miami LPNMaternal- Medicine at [facility] HospitalComment on above:20 weeks gestation of (Primary Dx); Chronic hypertension affecting ; History of pre-eclampsia in prior , currently in second trimester; History of gestational diabetes in prior , currently in second trimester; History of prediabetes; Bariatric surgery status complicating , second trimester; Severe obesity due to excess calories affecting , antepartum ([facility]); History of maternal pulmonary embolus; Obstructive sleep apnea; History of gestational diabetes in prior , currently ; Depression affecting ; Anxiety disorder affecting , antepartumStart: 05-28-2025 End: 62-89-9454Iypjv Arthur Pratt MD Work Phone: [phone]-Zkffb [facility] Start: 05-25-2025 End: 87-28-2645TlvflhHeai F Bower MD Work Phone: N[facility] SystemComment on above:Anxiety Start: 05-14-2025 End: 23-53-8904Oqkrgem encounter procedureNed Spicer NP Work Phone: [facility] Work Phone: Start: 05-14-2025 End: 17-39-6474Rsujuclk flow sheetNed Spicer NP Work Phone: noms [place] OBGYNComment on above:Well woman exam with routine gynecological exam; Screening, , for anatomic survey ([facility]); Second trimester ([facility]); 17 weeks gestation of ([facility]); Vaginal discharge; STD exposureStart: 05-14-2025 End: 17-86-1351wumtfifhcrGDTUSTGG EBERLYNot AvailableStart: 04-20-2025 End: 59-38-3368Jvjtuk flowsheetBin Morales DO Work Phone: noms [place] OBGYNStart: 04-20-2025 End: 57-94-7322Ubqudj flowsheetCorey Carmen DO Work Phone: NOMS [place] OBGYNStart: 04-20-2025 End: 10-48-4473Fgocydcz flow sheetCorey Carmen DO Work Phone: NOMS [place] OBGYNComment on above:Second trimester ([facility]); 14 weeks gestation of ([facility]); Primary hypertension ; H/O gastric bypass; History of diet controlled gestational diabetes mellitus (GDM); Diabetes mellitus screeningStart: 04-20-2025 End: 94-76-8293mhghtnrxosHSRYW FAZIONot AvailableStart: 03-25-2025 End: 74-89-5607Sjyvfitkl Result EncounterGeneric External Data ProviderNOMS External Department UnsolicitedStart: 03-25-2025 End: 82-77-2259Dleqhfyqq Result EncounterGeneric External Data ProviderNOMS External Department UnsolicitedStart: 03-20-2025 End: 31-54-6739Rmrddj outpatient visit 5 minutesFazio Nurse Noms Bcp ObNOMS BCP OBComment on above:GA: 58l2vRglxt: 03-20-2025 End: 81-05-5075tuvboegrzzLBGS BOWERNot AvailableStart: 01-01-2025 End: 90-53-8247Gzfpmi outpatient visit 25 minutesTonia Manzo MD Work Phone: [facility] General Surgery-BariatricComment on above:History of Bonnie-en-Y gastric bypass (Primary Dx); Postsurgical malabsorption; Malnutrition following gastrointestinal surgery; History of anemia; B12 deficiencyStart: 01-01-2025 End: 62-09-9279sserppwncrXNERGDWS M HOITENGLong Rosarioo HospitalStart: 01-01-2025 End: 99-15-7069dvpcgwnvrmVTYLUI L OSWALDNewark Hospital HospitalStart: 12-15-2024 End: 36-36-3823Ftvowlrun department patient visitRIDDHI PLATANewark Hospital HospitalStart: 10-30-2024 End: 51-73-5690HzbbvtSamantha Stallworth RN Work Phone: [facility] General Surgery-BariatricComment on above:Malnutrition following gastrointestinal surgery (Primary Dx); Postsurgical malabsorption; H/O gastric bypass; History of anemiaStart: 10-10-2024 End: 18-47-7279Hldcdy outpatient visit 15 minutesRiddhi Plata MD Work Phone: [facility] FNR FMComment on above:Influenza A (Primary Dx); Fever, unspecified fever causeStart: 10-10-2024 End: 45-28-2558fyxqpmgidiAZRR F BOWERNot AvailableStart: 10-10-2024 End: 21-45-1151Ptbqwu Gallo Plata MD Work Phone: [facility] FNR FMStart: 10-10-2024 End: 77-55-3731Mcodll Gallo Plata MD Work Phone: [facility] FNR FMStart: 08-25-2024 End: 21-59-5792Bassvq Gallo Plata MD Work Phone: [facility] FNR FMStart: 08-25-2024 End: 33-57-0054Fvzjjr Gallo Plata MD Work Phone: [facility] FNR FMStart: 08-25-2024 End: 82-30-5024Irsbos outpatient visit 15 minutesRiddhi Plata MD Work Phone: [facility] FNR FMComment on above:Non-recurrent acute serous otitis media of left ear (Primary Dx); Bariatric surgery status; Vitamin D deficiency; Iron deficiency anemia, unspecified iron deficiency anemia typeStart: 08-25-2024 End: 26-33-1807lozapixqdqGXFN F BOWERNot AvailableStart: 06-12-2024 End: 63-00-7916Wsuaoy outpatient visit 15 minutesRiddhi Plata MD Work Phone: [facility] FNR FMComment on above:Acute cystitis with hematuria (Primary Dx); DysuriaStart: 06-12-2024 End: 39-00-6427Pqsxeu Gallo Plata MD Work Phone: noms FNR FMStart: 06-12-2024 End: 10-49-5793Quifbf Gallo Plata MD Work Phone: noms FNR FMStart: 06-04-2024 End: 09-57-6581VqgfyhywnsMxe [facility] W72VgdBtfigj Physicians General Surgery-BariatricStart: 06-04-2024 End: 78-76-0282Indlxfrio to same day surgery centerTonia Manzo MD Work Phone: [facility] DieticiansComment on above: Dietary counseling and surveillance (Primary Dx); Malnutrition following gastrointestinal surgery; Postsurgical malabsorption; H/O gastric bypassMalnutrition following gastrointestinal surgery (Primary Dx); Postsurgical malabsorption; H/O gastric bypass; B12 deficiencyStart: 05-01-2024 End: 77-95-0877Ojfhyxdzs to same day surgery [facility] Rehabilitationrobert Moise [facility] DieticiansComment on above:Dietary counseling and surveillance (Primary Dx); Morbid obesity ([facility]); Malnutrition following gastrointestinal surgery; Postsurgical malabsorptionStart: 05-01-2024 End: 23-68-7013Dyoynt follow up visit related to original pxTonia Manzo MD Work Phone: [facility] General Surgery-BariatricComment on above:LUCIANO on CPAP (Primary Dx); H/O gastric bypass; Postoperative malabsorption; Malnutrition following gastrointestinal surgeryStart: 04-27-2024 End: 11-45-6756Efjrsfrhl encounterShayy Alonso [facility] Comment on above:bloody mocusStart: 04-23-2024 End: 67-18-0403Scgqxihdaz and management of inpatientTonia Manzo MD Work Phone: [phone] AcuteComment on above:Class 3 severe obesity due to excess calories with serious comorbidity and body mass index (BMI) of60.0 to 69.9 in adult ([facility]) (Primary Dx); History of pulmonary embolism; Acute post-operative painStart: 04-17-2024 End: 71-13-3036Weaubvtki encounterNilam Stallworth RN Work Phone: [facility] General Surgery-BariatricStart: 04-15-2024 End: 64-43-7895Qpaljq outpatient visit 5 minutesWlc Whpr Surg NurseProMedica Physicians General Surgery-BariatricComment on above:Morbid obesity with BMI of 60.0-69.9, adult ([facility]) (Primary Dx)Start: 04-15-2024 End: 41-09-3515Ubekmk OnlyNilam Stallworth RN Work Phone: [facility] General Surgery-BariatricComment on above:Preop testing (Primary Dx)Pre-op testing (Primary Dx)Start: 04-15-2024 End: 91-01-3363Cwolbuy encounter statusNilam Stallworth RN Work Phone: [facility] Work Phone: start: 03-27-2024 End: 80-46-9968Laoogx outpatient visit 10 minutesMattblair Manzo MD Work Phone: [facility] Physicians General Surgery-BariatricComment on above:PONV (postoperative nausea and vomiting) (Primary Dx); Unable to assess patient's smoking status within the last 12 months; Constipation, unspecified constipation type; Vitamin D deficiency; Chronic RUQ painStart: 03-17-2024 End: 16-38-3569Upnfcy consultation new/estab patient 40 Sylwia Bhandari MD Work Phone: [facility] Physicians CardiologyComment on above:Preop cardiovascular exam (Primary Dx)Start: 03-17-2024 End: 12-74-1976Syeznkv encounter Bryn Bhandari MD Work Phone: [facility] HospitalNiko [facility] Health systemtart: 03-12-2024 End: 24-19-6039Qybmjsvnj encounterAnne Ruiz CMASt. Albans HospitalMedica Physicians CardiologyStart: 03-06-2024 End: 62-27-2637Zfodusybufob consultation with [facility] DieticiansComment on above:Pre-bariatric surgery nutrition evaluation (Primary Dx); Morbid obesity ([facility])Start: 02-07-2024 End: 38-27-6775Kysauysvcaue consultation with [facility] DieticiansComment on above:Pre-bariatric surgery nutrition evaluation (Primary Dx); Morbid obesity ([facility])Start: 01-17-2024 End: 63-67-7304Ybsplo OnlyIsa [facility] Physicians General Surgery-BariatricComment on above:Preop testing (Primary Dx)Start: 01-17-2024 End: 76-64-9464Tgsjlcl encounter [facility] Start: 01-02-2024 End: 58-98-0430Gvkzphqjh to same day surgery [facility] DieticiansComment on above:Pre-bariatric surgery nutrition evaluation (Primary Dx); Morbid obesity ([facility])Start: 05-17-8758Azxjfot encounter procedureMadis RomieRoane General Hospital - Food ClinicStart: 12-05-2023 End: 84-25-5570Iqnorjpkq to same day surgery [facility] DieticiansComment on above:Pre-bariatric surgery nutrition evaluation (Primary Dx); Morbid obesity ([facility])Start: 11-08-2023 End: 37-11-3082Fmoxeyirl to same day surgery [facility] DieticiansComment on above:Pre-bariatric surgery nutrition evaluation (Primary Dx); Morbid obesity ([facility])Start: 10-10-2023 End: 57-63-8910Wcymwo outpatient new 30 minutesPatel Alcaraz MD Work Phone: [facility] Physicians CardiologyComment on above:Preop testing (Primary Dx); LUCIANO on CPAP; History of pulmonary embolism; Class 2 severe obesity due to excess calories with serious comorbidity in adult, unspecified BMI ([facility]); Essential hypertensionStart: 10-10-2023 End: 56-88-5206Ozkfdhe encounter statusPatel Alcaraz MD Work Phone: [facility] Hospitaltart: 52-20-8597Fqkbqnxun encounterAnne Ruiz [facility]Med[facility] Physicians CardiologyStart: 10-09-2023 End: 47-54-3041Ctzxfewdj to same day surgery [facility] DieticiansComment on above:Pre-bariatric surgery nutrition evaluation (Primary Dx); Morbid obesity ([facility])Start: 09-27-2023 End: 13-22-8310mxfrajzoifNNKGWE [facility] Ambulatory PPGStart: 09-27-2023 End: 86-45-9032Bbingp outpatient visit 10 minutesJalyn Arredondo Elston DO Work Phone: [facility] Pulmonary/Sleep MedicineComment on above:Mild intermittent asthma, unspecified whether complicated (Primary Dx); LUCIANO on CPAPStart: 58-08-1530Wmrob abstractingScanning Provider ExternalSt. Albans HospitalMediva Physicians CardiologyStart: 09-06-2023 End: 02-27-7462Vxxwbeoia to same day surgery [facility] DieticiansComment on above:Pre-bariatric surgery nutrition evaluation (Primary Dx); Morbid obesity ([facility])Start: 09-06-2023 End: 68-02-8929owfxlfgumoXqvtnulSouth [facility] Dieticians Start: 11-03-2022 End: 08-27-2618higqvhomfgIC BIN CARMEN .Facility:X7Uyfgh: 29-01-6450Crqlvswfs for other preprocedural examinationDR BIN CARMEN .[facility]Start: 14-48-0920Oxjoqpcqg for preprocedural cardiovascular examinationDR BIN CARMEN . [facility] Hospitaltart: 10-24-2022 End: 97-92-1351boirbuhoesVZ BIN CARMEN .Facility:Z5Eqyxk: 10-24-2022 End: 20-54-5169Mszthummo for other preprocedural examinationDR BIN CARMEN . Facility:B5Gqzff: 09-26-2022 End: 59-90-1521pfjifpajpxGJ ASHLEY Weir WESTFacility:I3Isknh: 53-72-0019cfergysmvyBH BIN CARMEN .Facility:E2Fixee: 41-70-2347uubbrtglvyIR BIN CARMEN .Facility:H1 Start: 07-01-2022 End: 52-51-0156benfdfkbzeYG ASHLEY Weir [facility] Hospitalcility:W7Hpjrn: 06-27-2022 End: 50-31-1863zxpiadscgnWB BIN CARMEN .Facility:O0Zndco: 12-05-2021 End: 06-34-7521Tospxprqz department patient visitDUARTE KraftSeattle VA Medical Centertart: 12-05-2021 End: 53-57-2184Jwdrlxbhh department patient visitDuarte Sosa MD Work Phone: [facility] EDComment on above:Shortness of breath (Primary Dx)Start: 11-30-2021 End: 02-96-1408Zflaarkljk and management of inpatientZAINULABEDIN WAQARMercy Deer Park Hospitaltart: 11-30-2021 End: 80-51-4475Eotruywykc and management of inpatientAngeline M Valentino DO Work Phone: stAZ CVICUComment on above:Acute pulmonary embolism, unspecified pulmonary embolism type, unspecified whether acute cor pulmonale present (HCC) (Primary Dx)Start: 11-26-2021 End: 54-98-0805Myqhwbradp and management of inpatientCHRISTOPHER LAMONTE COREYMercy Health Tiffin Hospitaltart: 11-26-2021 End: 79-56-5037Qmdfriobne and management of inpatientCooneal Torres MD Work Phone: stVZ 7A Labor & DeliveryComment on above:Preeclampsia in period (Primary Dx)Start: 11-25-2021 End: 02-52-1882Ujxdinbhi department patient visitMATTHEW SYVERSONPomerene Hospitaltart: 11-25-2021 End: 68-68-2843Bcwceovsi department patient visitMatthew Lani DO Work Phone: [facility] EDComment on above:Preeclampsia in period (Primary Dx)Start: 77-45-2729zvjmkgvsmnLX BIN CARMEN . Facility:W0Vfqdp: 11-20-2021 End: 56-63-9840Ebsxkbqqvk and management of inpatientDR CLARKE SCHUMACHER . Facility:A6Xrlkl: 11-17-2021 End: 98-41-0917pabvkcvltlVD BIN MORALES .Facility:P7Lfrwe: 01-06-2019 End: 94-53-6175Xncrfen encounter procedureDEFAULT PHYSICIANFacility:[facility] Procedures DateProcedureProcedure DetailPerforming ClinicianStart: 98-06-2498LAS UA (CLEAN/CATCH) DECATING MACHINE OPERATOR/MICRO IF IND.Bin Morales DO Work Phone: Start: 17-70-0156KUD HEMOGLOBIN N9PJwkxxvp External Data ProviderStart: 68-60-2735Qcvnh dip stick/tablet rgnt non-auto w/o micrscp Ned Spicer RECORDS COORDINATOR Work Phone: Start: 92-96-0056SLI,APTIMA HPV,AGE GDLNGeneric External Data ProviderStart: 21-74-9930Gfhqklbesgy observation [Identifier] in Cervix by Cyto stainWinter BURTON Work Phone: Start: 85-04-9054Infbz dip stick/tablet rgnt non-auto w/o micrscpNed Spicer NP Work Phone: Start: 32-83-7777Ulozw dip stick/tablet rgnt non-auto w/o micrscpCorey Carmen DO Work Phone: Start: 06-54-3983Pfeifsxg Zaina Pratt MD Work Phone: Start: 17-47-3525Eeuil metabolic panel calcium total Bin R Carmen DO Work Phone: Start: 25-35-2024NNC W Auto Differential panel - Blood Bin R Carmen DO Work Phone: Start: 25-43-6653Ggky scrn 1+ class nonchromoNot In System Ref ProvStart: 14-87-7300Uxwozqrkn c antibodyNot In System Ref ProvStart: 01-12-2106PST 1&2 AB/AG SCREEN (P24 AG)Not In System Ref ProvStart: 03-25-2025 Iaad ia hepatitis b surface antigenNot In System Ref ProvStart: 03-25-2025 SYPHILIS TOTAL(UNKNOWN SYPHILIS STATUS)Not In System Ref ProvStart: 03-25-2025 TYPE AND SCREENNot In System Ref ProvStart: 99-19-1879CHK TESTCorey Carmen DO Work Phone: Start: 88-38-3233Mcrgt dip stick/tablet rgnt non-auto w/o micrscpCorey Carmen DO Work Phone: Start: 73-15-8758Isuqrl-up visitFollow-upKATHLMICKI Arredondo HOITENGAStart: 62-31-9316CJDCMT COVID-19/FLURiddhi Plata MD Work Phone: Start: 94-65-8271Cvnah dip stick/tablet rgnt non-auto w/o micrscpMary Jonas Plata MD Work Phone: Start: 43-28-3603IFD REFERRAL TO NUTRITION SERVICES Tonia Manzo MD Work Phone: Start: 85-89-9551Motvpmelpi bloodMattblair Manzo MD Work Phone: Start: 04-23-2024 End: 05-58-3086Xkxi gstr rstcv px w/byp bonnie-en-y limb <150 cmMattblair Manzo MD Work Phone: Start: 43-49-7121Pylid test visual color cmprsn methsMattblair Manzo MD Work Phone: Start: 44-81-7760Jdesy depression screening assessment Shayy Alonso RMAStart: 20-46-9989Alome metabolic panel calcium totalOmar Rosa GUERRERO Work Phone: start: 55-91-2612Mmw routine ecg w/least 12 lds w/i&r Cr Venegas MD Work Phone: Start: 34-72-5492Qap routine ecg w/least 12 lds w/i&r Theodora Early MD Work Phone: Start: 35-16-1061Cph routine ecg w/least 12 lds w/i&r Tonia Isidro Wolfe PA-CStart: 67-68-5077Zznrp metabolic panel calcium totalMatthew Isidro Wolfe PA-CStart: 64-81-3371Iecudfmoyw exam chest single viewMatthew Isidro Wolfe PA-CStart: 88-98-1826Abtg tthrc r-t 2d w/wom-mode compl spec&colr dNichole Dave MASCARA MOLDER - RN RECRUITMENT Work Phone: Start: 44-05-4111LRKK-XA, UNFRACTIONATED HEPARINJamie Sergio [employer]A MOLDER - RN RECRUITMENT Work Phone: Start: 12-01-2021 End: 34-01-0922Abpjg of magnesiumShirley [facility] MAS[employer] M[employer]DER - RN RECRUITMENT Work Phone: Start: 57-24-4250Qbjoa panelShirley [facility] MAS[employer]A M[employer]DER - RN RECRUITMENT Work Phone: Start: 87-56-7567Gjxeq count complete automatedGateway Rehabilitation Hospital MASCARA MOLDER - RN RECRUITMENT Work Phone: Start: 66-28-9152Pc thorax w/contrast materialEric Clement [employer] M[employer] - RN RECRUITMENT Work Phone: Start: 14-03-7483Wzazj of troponin quantitativeEric Clement [employer] M[employer]DER - RN RECRUITMENT Work Phone: Start: 13-82-5313Anwnjzaifd microscopic onlyEric Clement [employer] M[employer] - RN RECRUITMENT Work Phone: Start: 75-05-7405Jsfrd dip stick/tablet rgnt auto w/o microscopyEric Clement [employer] M[employer] - RN RECRUITMENT Work Phone: Start: 60-47-7911Iwdjoclwja exam chest single viewEric Clement [employer] M[employer] - RN RECRUITMENT Work Phone: Start: 11-30-2021 End: 95-83-1778Nmroqxz dehydrogenase ldhEric Clement [employer] M[employer] - RN RECRUITMENT Work Phone: Start: 73-84-1675Dkz routine ecg w/least 12 lds w/i&r Bandar Clement [employer] MOLDER - RN RECRUITMENT Work Phone: Start: 50-54-1798Pd thorax w/contrast materialKrista R Yoan DO Work Phone: Start: 63-69-3159Lvevcacgsmaha metabolic panelKrista R Yoan DO Work Phone: Start: 72-32-8698RDZZL-19, RAPIDMatthew Lani DO Work Phone: Start: 11-25-2021 End: 99-07-6739Awicl metabolic panel calcium totalMatthew Lani DO Work Phone: Start: 78-85-1960Myctthm function panelMatthew Lani DO Work Phone: Start: 48-24-2568Ztgwhcabeu microscopic onlyMatthew Lani DO Work Phone: Start: 98-59-3747Qizmr dip stick/tablet rgnt auto w/o microscopyMatthew Lani DO Work Phone: Start: 70-00-8950Xailhume of Products of Conception, External ApproachDR BIN MORALES .Start: 45-72-2630Tkyfyrsf of Amniotic Fluid, Therapeutic from Products of Conception, Via Natural or Artificial OpeningDR BIN MORALES .Start: 88-23-6304Pugodueoaexp of Other Hormone into Peripheral Vein, Percutaneous ApproachDR BIN MORALES .History of gastrointestinal tract bypassHistory of Bonnie-en-Y gastric bypassTonia Manzo MD Work Phone: History of gastrointestinal tract bypassHistory of Bonnie-en-Y gastric bypassEster Pratt MD Work Phone: Plan of Treatment DateCare ActivityDetailAuthorStart: 77-63-7682Lphfrlxyi for malignant neoplasm of cervixNOMS HealthcareStart: 56-41-2482Mxfbcntet for malignant neoplasm of cervixNOMS HealthcareStart: 73-48-9287Uagdc BMI ScreeningAdult BMI Screening [facility]: 28-77-7044Fkmtses ScreeningTobacco Screening [facility] Hospitaltart: 51-32-8481Skany BMI ScreeningAdult BMI Screening [facility] Hospitaltart: 04-45-2058Jssjj BMI ScreeningAdult BMI Screening [facility]tart: 39-77-0422Odupexl ScreeningTobacco Screening [facility]tart: 43-64-9622Rnfup BMI ScreeningAdult BMI Screening [facility]: 33-86-6285Vnxyuyt ScreeningTobacco Screening [facility]tart: 07-09-2025 End: 45-64-0701Kvvsqhz encounter frpjkiifk65/30/2025 11:30 AM EDT Office Visit [facility]- Medicine at [facility] [address] [place] [address] Sana Lima MD [address], [place] [phone] (Work) [facility] 07-09-2025 End: 65-26-9866Hjnkiji encounter ssdqogaoy17/30/2025 9:45 AM EDT Appointment [facility] [address] [place] [address] [phone] Memorial Hospital US ImagingStart: 07-08-2025 End: 52-23-4415Mcmmyjf encounter gevhovyhl30/29/2025 8:30 AM EDT Routine [facility]AY[facility]OR [address] [place], [id number] Winter English PA [address] [place] [address] [facility] [place] OBGYNStart: 06-24-2025 End: 42-21-3470DZR W Auto Differential panel - BloodCBC and differential Lab Routine Diabetes mellitus screening Expected: 06/24/2025 (Approximate), Expires: 06/24/2026[facility] Work Phone: comment on above:Expected: 06/24/2025 (Approximate), Expires: 06/24/2026Start: 06-10-2025 End: 47-32-7618JHF W Auto Differential panel - BloodCBC and differential Lab Routine 21 weeks gestation of ([facility]) Second trimester ([facility]) Expected: 06/10/2025 (Approximate), Expires: 06/10/2026[facility] Healthcare Comment on above:Expected: 06/10/2025 (Approximate), Expires: 06/10/2026Start: 06-10-2025 End: 44-96-9618Giqekzseri A1c/Hemoglobin.total in BloodHemoglobin A1c Lab Routine 21 weeks gestation of ([facility]) Second trimester ([facility]) Diabetes mellitus screening Expected: 06/10/2025 (Approximate), Expires: 06/10/2026[facility] HealthcareComment on above:Expected: 06/10/2025 (Approximate), Expires: 06/10/2026Start: 06-10-2025 End: 67-56-9765Irbcdea encounter procedureNOMS Varela OBGYNComment on above: ArrivedStart: 70-22-5686Fjbnz BMI ScreeningAdult BMI ScreeningGreen Cross Hospital SystemStart: 05-29-2025 End: 29-13-2310GI MFM with or without consultUS MFM with or without consult Imaging Routine 20 weeks gestation of Chronic hypertensionaffecting History of pre-eclampsia in prior , currently in second trimester History of gestational diabetes in prior , currently in second trimester History of prediabetes Bariatric surgery status complicating , second trimester Severe obesity due to excess calories affecting , antepartum ([facility]) History of maternal pulmonary embolus Obstructive sleep apnea History of gestational diabetes in prior , currently Depression affecting Anxiety disorder affecting , antepartum Expected: 05/29/2025, Expires: 05/29/2026[facility] Work Phone: comment on above:Expected: 05/29/2025, Expires: 05/29/2026Start: 05-29-2025 End: 09-74-6200Vtrnflm encounter procedureTriHealth [facility] US ImagingStart: 05-14-2025 End: 34-46-2366Etkwa fetoprotein, maternalAlpha fetoprotein, maternal Lab Routine Second trimester ([facility]) 17 weeks gestation of ([facility]) Expected: 05/14/2025 (Approximate), Expires: 11/11/2025[facility] Work Phone: comment on above:Expected: 05/14/2025 (Approximate), Expires: 11/11/2025Start: 05-14-2025 End: 70-37-3974Zngjtjc encounter weaesndck69/04/2025 8:30 AM EDT Routine CHEVY TAYLOR [address] [place], [id number] Ned Spicer, RECORDS COORDINATOR [address] [place] [address] [address]NStart: 83-31-0637Tjvmjntng vaccinationGreen Cross Hospital SystemStart: 68-03-7410Yrwse BMI Follow Up PlanAdult BMI Follow Up PlanGreen Cross Hospital SystemStart: 05-01-2025 Adult BMI ScreeningAdult BMI ScreeningDunlap Memorial Hospitalca [facility] SystemStart: 05-01-2025 Tobacco ScreeningTobacco ScreeningDunlap Memorial Hospitalca [facility] SystemStart: 64-10-8156Evope BMI ScreeningAdult BMI ScreeningDunlap Memorial Hospitalca [facility] SystemStart: 04-23-2025 Depression ScreeningDepression ScreeningGreen Cross Hospital SystemStart: 04-23-2025 Tobacco ScreeningTobacco ScreeningDunlap Memorial Hospitalca [facility] SystemStart: 04-23-2025 End: 80-25-0398Efuccfm encounter fdyldhsnz36/14/2025 8:30 AM EDT Office Visit [facility] [address] [place] [address] [address] [place] [phone] Tonia Manzo MD [address] [facility] [address] [place] [address] [facility] Surgery-BariatricStart: 04-20-2025 End: 90-84-3500Ycuevhuunwe of glucose 1 hour after glucose challenge for glucose tolerance testGlucose tolerance, 1 hour Lab Routine Diabetes mellitus screening Expected: 04/20/2025 (Approximate), Expires: 04/20/2026[facility] Work Phone: comment on above:Expected: 04/20/2025 (Approximate), Expires: 04/20/2026Start: 04-20-2025 End: 69-35-1304Mdxperj encounter procedureNOMS [facility] OBComment on above:Arrived Start: 86-77-0311Jzitq BMI ScreeningAdult BMI ScreeningGreen Cross Hospital System Start: 81-90-6066Cfnfyya ScreeningTobacco ScreeningNovant Health Medical Park Hospitaltart: 04-10-2025 End: 41-73-3128Hqpuwxf [Mass/volume] in Serum or PlasmaCalcium Lab Routine History of Bonnie-en-Y gastric bypass Postsurgical malabsorption Malnutrition foll owing gastrointestinal surgery Expected: 04/10/2025 (Approximate), Expires: 04/10/2026[facility] Work Phone: Comment on above:Expected: 04/10/2025 (Approximate), Expires: 04/10/2026Start: 04-10-2025 End: 33-13-2122LMP W Auto Differential panel - BloodCBC auto differential Lab Routine History of Bonnie-en-Y gastric bypass Postsurgical malabsorption Mal nutrition following gastrointestinal surgery Expected: 04/10/2025 (Approximate), Expires: 04/10/2026[facility] SystemComment on above:Expected: 04/10/2025 (Approximate), Expires: 04/10/2026Start: 04-10-2025 End: 65-38-4766TcxsvjChristo romano S Lab Routine History of Bonnie-en-Y gastric bypass Postsurgical malabsorption Malnutrition following gastrointestinal surgery Expected: 04/10/2025 (Approximate), Expires: 04/10/2026[facility] SystemComment on above:Expected: 04/10/2025 (Approximate), Expires: 04/10/2026 Start: 04-10-2025 End: 83-66-1590Qkqqdnfwsjueww vitamin b-12Vitamin B12 Lab Routine History of Bonnie-en-Y gastric bypass Postsurgical malabsorption Malnutritionfollowing gastrointestinal surgery Expected: 04/10/2025 (Approximate), Expires: 04/10/2026 [facility] SystemComment on above:Expected: 04/10/2025 (Approximate), Expires: 04/10/2026Start: 04-10-2025 End: 63-76-9219Xuxrfphy [Mass/volume] in Serum or PlasmaFerritin Lab Routine History of Bonnie-en-Y gastric bypass Postsurgical malabsorption Malnutrition fol lowing gastrointestinal surgery History of anemia Expected: 04/10/2025 (Approximate), Expires: 04/10/2026[facility] SystemComment on above: Expected: 04/10/2025 (Approximate), Expires: 04/10/2026Start: 04-10-2025 End: 06-60-9574DzhazsSfqllv Lab Routine History of Bonnie-en-Y gastric bypass Postsurgical malabsorption Malnutrition following gastrointestinal surgery Expected: 04/10/2025 (Approximate), Expires: 04/10/2026[facility] Comment on above:Expected: 04/10/2025 (Approximate), Expires: 04/10/2026Start: 04-10-2025 End: 27-68-8680Jbhx and TIBCIron and TIBC Lab Routine History of Bonnie-en-Y gastric bypass Postsurgical malabsorption Malnutrition following gastrointestinal surgery History of anemia Expected: 04/10/2025 (Approximate), Expires:04/10/2026[facility] SystemComment on above:Expected: 04/10/2025 (Approximate), Expires: 04/10/2026Start: 04-10-2025 End: 37-18-0274Qborf panelLiver panel Lab Routine History of Bonnie-en-Y gastric bypass Postsurgical malabsorption Malnutritionfollowing gastrointestinal surgery Expected: 04/10/2025 (Approximate), Expires: 04/10/2026[facility] Comment on above:Expected: 04/10/2025 (Approximate), Expires: 04/10/2026Start: 04-10-2025 End: 81-96-3126Iktboubgowz Hormone, intactParathyroid Hormone, intact Lab Routine History of Bonnie-en-Y gastric bypass Postsurgical malabsorption Malnutrition following gastrointestinal surgery Expected: 04/10/2025 (Approximate), Expires: 04/10/2026[facility] SystemComment on above: Expected: 04/10/2025 (Approximate), Expires: 04/10/2026Start: 04-10-2025 End: 27-29-5389Ywyapok (Vitamin B1), WBThiamin (Vitamin B1), WB Lab Routine History of Bonnie-en-Y gastric bypass Postsurgical malabsorptionMalnutrition following gastrointestinal surgery Expected: 04/10/2025 (Approximate), Expires: 04/10/2026[facility] SystemComment on above:Expected: 04/10/2025 (Approximate), Expires: 04/10/2026Start: 04-10-2025 End: 11-65-7528Maxkpdl A (Retinol)Vitamin A (Retinol) Lab Routine History of Bonnie-en-Y gastric bypass Postsurgical malabsorption Malnutrition following gastrointestinal surgery Expected: 04/10/2025 (Approximate), Expires: 04/10/2026 [facility] SystemComment on above:Expected: 04/10/2025 (Approximate), Expires: 04/10/2026Start: 04-10-2025 End: 65-32-1544Jjxkkdg D 25 hydroxyVitamin D 25 hydroxy Lab Routine History of Bonnie-en-Y gastric bypass Postsurgical malabsorption Malnutrition following gastrointestinal surgery Expected: 04/10/2025 (Approximate), Expires: 04/10/2026 [facility] SystemComment on above:Expected: 04/10/2025 (Approximate), Expires: 04/10/2026Start: 04-10-2025 End: 25-15-7114Fpal, SerumZinc, Serum Lab Routine History of Bonnie-en-Y gastric bypass Postsurgical malabsorption Malnutritionfollowing gastrointestinal surgery Expected: 04/10/2025 (Approximate), Expires: 04/10/2026[facility] Comment on above:Expected: 04/10/2025 (Approximate), Expires: 04/10/2026Start: 03-20-2025 End: 11-79-7320XXJ/RhABO/Rh Lab Routine Missed menses , unspecified gestational age ([facility]) Expected: 03/20/2025 (Approximate), Expires: 03/20/2026[facility] HealthcareComment on above:Expected: 03/20/2025 (Approximate), Expires: 03/20/2026Start: 03-20-2025 End: 73-49-4471Suqfd type and Indirect antibody screen panel - BloodType and screen Lab Routine Missed menses , unspecified gestational age ([facility]) Expected: 03/20/2025 (Approximate), Expires: 03/20/2026[facility] Work Phone: comment on above:Expected: 03/20/2025 (Approximate), Expires: 03/20/2026Start: 03-20-2025 End: 07-58-4972Xigew of abuse panel - Urine by Screen methodRapid drug screen, urine Lab Routine , unspecified gestational age ([facility]) Encounter for supervision of normal first in first trimester ([facility]) Expected: 03/20/2025 (Approximate), Expires: 03/20/2026[facility] HealthcareComment on above: Expected: 03/20/2025 (Approximate), Expires: 03/20/2026Start: 59-62-6607Nfwdg BMI ScreeningAdult BMI ScreeningProC[facility] SystemStart: 45-62-4759Dnnqqlz ScreeningTobacco ScreeningProCincinnati Va Medical Center SystemStart: 79-32-6745Kxoufgfiq vaccinationInfluenza Vaccine (#1)[facility] HealthcareComment on above:Postponed from 05/11/2024 (Patient Refused)Start: 12-67-1803Utizn BMI ScreeningAdult BMI ScreeningProCincinnati Va Medical Center SystemStart: 99-89-8766Vodbp BMI ScreeningAdult BMI ScreeningProCincinnati Va Medical Center SystemStart: 34-78-8856Yzmou BMI ScreeningAdult BMI ScreeningGreen Cross Hospital SystemStart: 48-83-9669Mfgzoih ScreeningTobacco ScreeningGreen Cross Hospital SystemStart: 27-06-7277Zztmq BMI ScreeningAdult BMI ScreeningNovant Health Medical Park Hospitaltart: 11-13-2024 End: 58-21-4518Pcpyfbb encounter prvgetbvn87/06/2025 11:00 AM EST Office Visit [facility] [address] [place] [phone] Tonia Manzo MD [address] [facility] [address] [place] [address] May Dunlap, MASCARA MOLDER-RN RECRUITMENT [address] [place] [address] [facility] Surgery-BariatricStart: 60-73-8834Aiwtk BMI ScreeningAdult BMI ScreeningProDayton VA Medical Centertart: 10-30-2024 End: 21-85-7779RNK W Auto Differential panel - BloodCBC auto differential Lab Routine Malnutrition following gastrointestinal surgery Postsurgical malab sorption H/O gastric bypass History of anemia Expected: 10/30/2024, Expires: 10/30/2025[facility] Work Phone: Comment on above:Expected: 10/30/2024, Expires: 10/30/2025Start: 10-30-2024 End: 01-50-0482Cvaaomugymsghs vitamin b-12Vitamin B12 Lab Routine Malnutrition following gastrointestinal surgery Postsurgical malabsorption H/O gastric bypass History of anemia Expected: 10/30/2024, Expires: 10/30/2025[facility] SystemComment on above:Expected: 10/30/2024, Expires: 10/30/2025Start: 10-30-2024 End: 81-71-5001Lswmkasc [Mass/volume] in Serum or PlasmaFerritin Lab Routine Malnutrition following gastrointestinal surgery Postsurgical malabsorption H/O gastric bypass History of anemia Expected: 10/30/2024, Expires: 10/30/2025 [facility] SystemComment on above:Expected: 10/30/2024, Expires: 10/30/2025Start: 10-30-2024 End: 56-74-7761NpuasbBxpvgb Lab Routine Malnutrition following gastrointestinal surgery Postsurgical malabsorption H/O gastric bypass History of anemia Expected: 10/30/2024, Expires: 10/30/2025[facility] SystemComment on above:Expected: 10/30/2024, Expires: 10/30/2025Start: 10-30-2024 End: 93-11-9133Mjmp and TIBCIron and TIBC Lab Routine Malnutrition following gastrointestinal surgery Postsurgical malabsorption H/O gastric bypass History of anemia Expected: 10/30/2024, Expires: 10/30/2025[facility] Comment on above:Expected: 10/30/2024, Expires: 10/30/2025Start: 10-30-2024 End: 76-92-9919Fcoxa panelLiver panel Lab Routine Malnutrition following gastrointestinal surgery Postsurgical malabsorption H/O gastric bypass History of anemia Expected: 10/30/2024, Expires: 10/30/2025[facility] Comment on above:Expected: 10/30/2024, Expires: 10/30/2025Start: 10-30-2024 End: 10-84-5686Fdholxs (Vitamin B1), WBThiamin (Vitamin B1), WB Lab Routine Malnutrition following gastrointestinal surgery Postsurgical malabsorption H/O gastric bypass History of anemia Expected: 10/30/2024, Expires: 10/30/2025 [facility] SystemComment on above:Expected: 10/30/2024, Expires: 10/30/2025Start: 10-30-2024 End: 75-58-4334Pyddaru D 25 hydroxyVitamin D 25 hydroxy Lab Routine Malnutrition following gastrointestinal surgery Postsurgical malabsorption H/O gastric bypass History of anemia Expected: 10/30/2024, Expires: 10/30/2025[facility] SystemComment on above:Expected: 10/30/2024, Expires: 10/30/2025Start: 27-72-8162Qqmjxzy ScreeningTobacco ScreeningProCincinnati Va Medical Center SystemStart: 10-10-2024 End: 64-89-7357Lljdczi encounter hvxjtaelc89/31/2025 3:40 PM EST Office Visit [facility] [address] [place] [phone] Riddhi Plata MD [address] [place] [address] [facility] F[facility] FMComment on above:ArrivedStart: 84-94-5165Bqmfl BMI Screening Adult BMI ScreeningProCorey Hospitalca Health SystemStart: 86-58-3054Jqlhrvp Screening Tobacco ScreeningProCorey Hospitalca Health SystemStart: 37-84-5037Ztmuh BMI Screening Adult BMI ScreeningProDecatur [facility] Hospital Health SystemStart: 17-91-5572Esnmewp Screening Tobacco ScreeningProCorey Hospitalca Health SystemStart: 77-27-4292Mtjpr BMI Screening Adult BMI ScreeningProCorey Hospitalca [facility] SystemStart: 08-25-2024 End: 473168-hojvovtqnmehkx D3 [Mass/volume] in Serum or PlasmaVitamin D 25 hydroxy Lab Routine Bariatric surgery status Vitamin D deficiency Expected: 08/25/2024(Approximate), Expires: 08/25/2025[facility] HealthcareComment on above: Expected: 08/25/2024 (Approximate), Expires: 08/25/2025Start: 08-25-2024 End: 06-24-7421SSI W Auto Differential panel - BloodCBC and differential Lab Routine Bariatric surgery status Vitamin D deficiency Iron deficiency anemia, unspecified iron deficiency anemia type Expected: 08/25/2024 (Approximate), Expires: 08/25/2025[facility] HealthcareComment on above:Expected: 08/25/2024 (Approximate), Expires: 08/25/2025Start: 08-25-2024 End: 54-96-0622Froespkcu (Vitamin B12) [Mass/volume] in Serum or PlasmaVitamin B12 Lab Routine Bariatric surgery status Vitamin D deficiency Iron deficiency anemia, unspecified iron deficiency anemia type Expected: 08/25/2024 (Approximate), Expires: 08/25/2025[facility] Work Phone: Comment on above:Expected: 08/25/2024 (Approximate), Expires: 08/25/2025Start: 08-25-2024 End: 42-87-8804Mkik + transferrin + TIBCIron + transferrin + TIBC Lab Routine Bariatric surgery status Vitamin D deficiency Iron deficiencyanemia, unspecified iron deficiency anemia type Expected: 08/25/2024 (Approximate), Expires: 08/25/2025[facility] HealthcareComment on above:Expected: 08/25/2024 (Approximate), Expires: 08/25/2025Start: 08-25-2024 End: 94-33-6418Gnbriew encounter kehuubmja03/16/2024 8:20 AM EST Office Visit [facility] [address] [place] [address] Riddhi Plata MD [address] [place] [address] [facility]ALL[facility] Comment on above:ArrivedStart: 41-16-7339Lpeta BMI Screening Adult BMI ScreeningNovant Health Medical Park Hospitaltart: 07-31-2024 End: 85-04-2849VLG W Auto Differential panel - BloodCBC auto differential Lab Routine H/O gastric bypass Postoperative malabsorption Malnutrition following gastrointestinal surgery Expected: 07/31/2024 (Approximate), Expires: 04/30/2025 [facility] Work Phone: Comment on above:Expected: 07/31/2024 (Approximate), Expires: 04/30/2025Start: 07-31-2024 End: 63-62-3763Nlzyedtwjpsyss vitamin b-12Vitamin B12 Lab Routine H/O gastric bypass Postoperative malabsorption Malnutrition following gastrointestinal surgery Expected: 07/31/2024 (Approximate), Expires: 04/30/2025[facility] HospitalComment on above:Expected: 07/31/2024 (Approximate), Expires: 04/30/2025 Start: 07-31-2024 End: 08-59-0489YbwiipMyhoyv Lab Routine H/O gastric bypass Postoperative malabsorption Malnutrition following gastrointestinal surgery Expected: 07/31/2024 (Approximate), Expires: 04/30/2025[facility] SystemComment on above:Expected: 07/31/2024 (Approximate), Expires: 04/30/2025Start: 07-31-2024 End: 98-61-4616Ppks [Mass/volume] in Serum or PlasmaIron Lab Routine H/O gastric bypass Postoperative malabsorption Malnutrition following gastrointestinal surgery Expected: 07/31/2024 (Approximate), Expires: 04/30/2025[facility] SystemComment on above:Expected: 07/31/2024 (Approximate), Expires: 04/30/2025 Start: 07-31-2024 End: 83-07-9400Durpw panelLiver panel Lab Routine H/O gastric bypass Postoperative malabsorption Malnutrition following gastrointestinal surgery Expected: 07/31/2024 (Approximate), Expires: 04/30/2025[facility] Comment on above:Expected: 07/31/2024 (Approximate), Expires: 04/30/2025Start: 07-31-2024 End: 96-79-6675Uvhrnvl (Vitamin B1), WBThiamin (Vitamin B1), WB Lab Routine H/O gastric bypass Postoperative malabsorption Malnutrition following gastrointestinal surgery Expected: 07/31/2024 (Approximate), Expires: 04/30/2025 [facility] on above:Expected: 07/31/2024 (Approximate), Expires: 04/30/2025Start: 07-31-2024 End: 48-34-2440Iaraszg D 25 hydroxyVitamin D 25 hydroxy Lab Routine H/O gastric bypass Postoperative malabsorption Malnutrition following gastrointestinal surgery Expected: 07/31/2024 (Approximate), Expires: 04/30/2025[facility] SystemComment on above:Expected: 07/31/2024 (Approximate), Expires: 04/30/2025 Start: 07-24-2024 End: 06-36-7982Xhyggle encounter arkqeqmwg66/14/2024 11:30 AM EST Office Visit [facility] [address] [place] [address] Tonia Manzo MD [address] [address] May Dunlap, MASCARA MOLDER-RN RECRUITMENT [address] [place], [place] [phone] [facility] General Surgery-BariatricStart: 18-22-8027Fbhdaaf ScreeningTobacco ScreeningGreen Cross Hospital SystemStart: 06-12-2024 End: 97-89-9592Jjrzaqjy identified in Urine by CultureUrine culture (clean catch) Microbiology Routine Dysuria Expected: 06/12/2024 (Approximate), Expires: 06/12/2025[facility] Work Phone: Comment on above:Expected: 06/12/2024 (Approximate), Expires: 06/12/2025Start: 06-12-2024 End: 71-02-3697Pmzenxauin complete panel - UrineUrinalysis with reflex microscopic (clean catch) Lab Routine Dysuria Expected: 06/12/2024 (Approxima te), Expires: 06/12/2025[facility] HealthcareComment on above:Expected: 06/12/2024 (Approximate), Expires: 06/12/2025Start: 06-04-2024 End: 83-59-0232zyhvsyvrcy40/25/2024 10:30 AM EDT Support Visit [facility] [address] [place] [phone] Tonia Manzo MD [address] [address] Jenny Moise [facility]DMontrose [facility] Start: 06-02-2024 End: 61-24-4923cybkxjsetm39/23/2024 1:00 PM EDT Support Visit [facility] [address] [place] [phone] Tonia Manzo MD [address] [address] Belem Pleitez LDMontrose Memorial Hospital DieticiansStart: 76-91-6527IfwmqghafChesapeake Regional Medical CenterStart: 05-01-2024 End: 72-18-1037Jkuefnf encounter tiuftqnuk58/22/2024 1:30 PM EDT Office Visit [facility] [address] [place] [phone] Tonia Manzo MD [address] [facility], [address] [address] [facility] General Surgery-BariatricStart: 05-01-2024 End: 03-05-8237ngadcuoela08/22/2024 1:00 PM EDT Support Visit [facility] [address] [place] [phone] Jenny Moise RDMontrose [facility] Hospital DieticiansStart: 04-23-2024 End: 45-65-6627Vsosyvcln to same day surgery dfviva1204/23/2024 9:30 AM EDT - 04/23/2024 11:30 AM EDT Surgery [facility] - Surgery [address] [place] [phone] Tonia Manzo MD [address] [facility], [address] [address] DAVINCI BYPASS GASTRIC BONNIE EN Y [[id number] (CPT )][facility] - SurgeryComment on above:DAVINCI BYPASS GASTRIC BONNIE EN Y [[id number] (CPT )]Start: 04-23-2024 End: 02-77-6515Wjgy gstr rstcv px w/byp bonnie-en-y limb <150 cmDAVINCI BYPASS GASTRIC BONNIE EN Y MORBID OBESITY/HYPERTENSION 04/23/2024 9:30 AM EDTTOLEDO SURGERYStart: 98-93-4574Nhchhixslg hospital visit by lhvpushmy28/14/2024 9:30 AM EDT [facility] [address] [place] [phone] Tonia Manzo MD [address] [facility] [address] [place], [place] [phone] (Work) [facility] - SurgeryStart: 04-15-2024 End: 87-66-7468BE Chest PA and Lateral[facility] Work Phone: Comment on above:Expected: 04/15/2024 (Approximate), Expires: 04/15/2025Start: 03-27-2024 End: 76-22-1195Zwzmiuee and Metabolites, Random, UrineNicotine and Metabolites, Random, Urine Lab Routine Unable to assess patient's smoking status within the last 12 months Expected: 03/27/2024, Expires: 2025[facility] Work Phone: Comment on above:Expected: 03/27/2024, Expires: 2025Start: 03-27-2024 End: 72-16-9703GQ Abdomen limitedUltrasound abdomen limited Imaging Routine Chronic RUQ pain Expected: 03/27/2024, Expires: 03/27/2025[facility] SystemComment on above:Expected: 03/27/2024, Expires: 03/27/2025Start: 03-27-2024 End: 07-87-4347Zvwgjkg encounter peorgcxvd89/18/2024 1:30 PM EDT Office Visit [facility] General Surgery-Bariatric [address] [place] [phone] Tonia Manzo MD [address] [address] [facility] General Surgery-BariatricStart: 99-76-8446Cdjeg BMI Follow Up PlanAdult BMI Follow Up PlanProDecatur Morgan Hospital Health SystemStart: 03-17-2024 End: 98-76-3902Wanmxevhhfmrbl vitamin b-12Vitamin B12 Lab Routine Preop testing Expected: 03/17/2024, Expires: 01/16/2025[facility] SystemComment on above:Expected: 03/17/2024, Expires: 01/16/2025Start: 03-17-2024 End: 07-50-3485FkrmopRmdflw Lab Routine Preop testing Expected: 03/17/2024, Expires: 01/16/2025[facility] SystemComment on above:Expected: 03/17/2024, Expires: 01/16/2025Start: 03-17-2024 End: 01-16-2025H Pylori Breath AdultH Pylori Breath Adult Lab Routine Preop testing Expected: 03/17/2024, Expires: 01/16/2025[facility] SystemComment on above:Expected: 03/17/2024, Expires: 01/16/2025Start: 03-17-2024 End: 38-53-2711Bylchcxffb A1c/Hemoglobin.total in BloodHemoglobin A1c Lab Routine Preop testing Expected: 03/17/2024, Expires: 01/16/2025[facility] Work Phone: Comment on above:Expected: 03/17/2024, Expires: 01/16/2025Start: 03-17-2024 End: 36-39-6350Hnad and TIBCIron and TIBC Lab Routine Preop testing Expected: 03/17/2024, Expires: 01/16/2025[facility] SystemComment on above:Expected: 03/17/2024, Expires: 01/16/2025Start: 03-17-2024 End: 05-15-6451Gawgw 1996 panel - Serum or PlasmaLipid profile Lab Routine Preop testing Expected: 03/17/2024, Expires: 01/16/2025[facility] SystemComment on above:Expected: 03/17/2024, Expires: 01/16/2025Start: 03-17-2024 End: 73-75-8322Eiiiwpmwrlu [Units/volume] in Serum or PlasmaTSH Lab Routine Preop testing Expected: 03/17/2024, Expires: 01/16/2025[facility] Comment on above:Expected: 03/17/2024, Expires: 01/16/2025Start: 03-17-2024 End: 11-43-9491Iuruwxy D 25 hydroxyVitamin D 25 hydroxy Lab Routine Preop testing Expected: 03/17/2024, Expires: 01/16/2025[facility] SystemComment on above:Expected: 03/17/2024, Expires: 01/16/2025Start: 03-17-2024 End: 64-76-1701Tvhkjbw encounter procedureProDecatur Morgan Hospital Physicians CardiologyStart: 03-06-2024 End: 26-36-4454Petcfjejrsdy consultation with ompkvoz2903/06/2024 1:30 PM EDT Telemedicine [facility] [address] [place] [phone] Jenny Moise RDMontrose [facility] Start: 02-07-2024 End: 67-35-0273rveuxgdyqe78/30/2024 1:30 PM EDT Support Visit [facility] [address] [place] [phone] Jenny Moise RDMontrose [facility] Hospital DieticiansStart: 01-02-2024 End: 07-07-9180flsilpdxmf32/24/2024 12:30 PM EDT Support Visit [facility] [address] [place] [phone] Jenny Moise RDMontrose [facility] Hospital DieticiansStart: 12-12-2023 End: 11-13-7801Nkpbzbs encounter etrklecel14/03/2024 1:00 PM EDT Appointment [facility] - Radiology [address] [place] [address] KstFrsswfSCCI Hospital [facility] - RadiologyStart: 12-05-2023 End: 94-30-3913nmsopzyusg91/27/2024 1:30 PM EDT Support Visit [facility] [address] [place] [phone] Jenny Moise RDMontrose [facility] Hospital DieticiansStart: 11-21-2023 End: 64-77-5965Yaqzpfp encounter wjkmrvatr48/13/2024 1:00 PM EDT Appointment [facility] - Radiology [address] [place] [phone] Tonia Manzo MD [address] [facility] [address] [place] [address] [facility] - RadiologyStart: 11-08-2023 End: 71-13-8781arpbuvlyyj77/29/2024 11:30 AM EST Support Visit [facility] [address] [place] [phone] Jenny Moise RDMontrose [facility] Hospital DieticiansStart: 10-10-2023 End: 56-66-4577Lvjztwd encounter /31/2024 8:15 AM EST Office Visit [facility] [address] [place] [phone] Patel Alcaraz MD [address] [place], [place] [phone] Theodora Early MD [address] [place] [address] [facility] CardiologyStart: 10-09-2023 End: 51-32-3276dgdhlmbntc37/30/2024 11:00 AM EST Support Visit [facility] [address] [place] [phone] Jenny Moise RDM[facility]rose [facility] DieticiansStart: 09-27-2023 End: 52-27-2574Rhickgb encounter deoesdxgt17/18/2024 11:45 AM EST Office Visit [facility] Pul[facility]/Sleep Medicine [address] [place] [address] Jalyn Vidal, DO [address] [address] [facility] Pulmonary/Sleep MedicineStart: 31-88-4751Dsjoorshw vaccinationInfluenza Vaccine [facility] SystemStart: 04-40-7039Siscwbpyyc measurementCreatinine monitoringHocking Valley Community Hospital HealthStart: 92-99-9473Hjwzmowio monitoringPotassium monitoring [facility] HospitalStart: 20-53-1755Dacksxohhr measurementCreatinine monitoringMer HealthStart: 68-13-8719Slpcbtlyy monitoringPotassium monitoringHocking Valley Community Hospital Health Start: 73-07-0494Vgtrvshnpt MonitoringDepression MonitoringCleveland Clinic Mentor HospitalStart: 09-48-7318Edtrtailke measurementCreatinine monitoringC[facility] Clinic Mentor HospitalStart: 46-36-2985Nwpvobrpp monitoringPotassium monitoringCleveland Clinic Mentor HospitalStart: 12-09-2021 End: 26-75-8838Zeuxijd encounter pxxuaiklu17/01/2022 Office Visit Obstetrics and Gynecology Brandie Moore, DO [address] [place] [address] [facility] [employer] [facility]: 11-30-2021 End: 76-20-7218Tvvnvjp encounter xunoxruqk23/23/2022 Office Visit Family Medicine Rochelle Louis MD [address] [facility] [address] [place] [address] [facility]: 11-30-2021 End: 94-80-8453Fgfnmrvhyvwz consultation with zhtlrgu6911/30/2021 Telemedicine Family Medicine Rochelle Louis MD [address] [facility] [address] [place] [phone] [facility] Start: 07-89-4944Dykmjzooh vaccinationFlu vaccine (#1)[facility] HospitalStart: 45-86-0159YTaN,Tdap and Td Vaccines (7 - Td or Tdap)DTaP,Tdap and Td Vaccines (7 - Td or Tdap)[facility] Hospitaltart: 94-45-8088Edazczgrz for malignant neoplasm of cervixPap smearCleveland Clinic Mentor HospitalStart: 20-62-3366IJaN/Tdap/Td vaccine (1 - Tdap)DTaP/Tdap/Td vaccine (1 - Tdap)[facility] HospitalStart: 39-09-6426NJK screening HIV screenCleveland Clinic Mentor HospitalStart: 93-91-8375Zjwookhqvc MonitoringDepression MonitoringC[facility] Clinic Ment[facility] HospitalStart: 20-29-1472Tusmdsdtya ScreenDepression ScreenCleveland Clinic Mentor HospitalStart: 68-00-8299Xqvpwdrrtd ScreeningDepression ScreeningNovant Health Medical Park Hospitaltart: 03-25-4325XKOCQ-19 Vaccine (1)COVID-19 Vaccine (1)[facility] Start: 34-46-6218Qbkerdkzk vaccine (1 of 2 - 2-dose childhood series)Varicella vaccine (1 of 2 - 2-dose childhood series)[facility] Hospitalart: 49-54-0264Iegteioue C screeningHepatitis C [facility] End: 90-64-3855Mbsv thrombin 3 functAnti thrombin 3 funct Lab Routine 20 weeks gestation of History of maternal pulmonary embolus 1 Occurrences starting 05/29/2025 until 05/29/2026[facility] SystemComment on above:1 Occurrences starting 05/29/2025 until 6Anti thrombin 3 functAnti thrombin 3 funct Lab Routine 20 weeks gestation of History of maternal pulmonary embolus 05/29/2025 1:48 PM [facility] End: 25-11-4027Jgrj-Xa, Unfractionated HeparinAnti-Xa, Unfractionated Heparin Lab Timed Every 6 Hours (Lab) for 7 Days starting 12/01/2021 until 12/07/2021 [facility] Work Phone: comment on above:Every 6 Hours (Lab) for 7 Days starting 12/01/2021 until 12/07/2021acteria identified in Urine by CultureUrine culture Microbiology Routine Missed menses Ordered: 03/20/2025[facility] Comment on above:Ordered: 03/20/2025BC panel - Blood by Automated countCBC Lab Routine Every Other Day until discontinued starting 12/02/2021[facility] HospitalSea[facility] International Work Phone: comment on above:Every Other Day until discontinued starting 2CBC W Auto Differential panel - BloodCBC and differential Lab Routine Missed menses , unspecified gestational age ([facility]) Ordered: 03/20/2025[facility] HealthcareComment on above:Ordered: 03/20/2025HLAMYDIA TRACHOMATIS (GENITO/STI)CHLAMYDIA TRACHOMATIS (GENITO/STI) Lab Routine Screen for STD (sexually transmitted disease) Ordered: 06/10/2025[facility] HealthcareComment on above:Ordered: 06/10/2025 End: 89-96-4976Uhnkyllbuofap metabolic 1999 panel - Serum or PlasmaComprehensive metabolic panel Lab Routine 20 weeks gestation of Chronic hypertension affecting 1 Occurrences starting 05/29/2025 until 05/29/2026[facility] HospitalNiko Niko SystemComment on above:1 Occurrences starting 05/29/2025 until 05/29/2026omprehensive metabolic 2000 panel - Serum or Plasma Comprehensive metabolic panel Lab Routine 20 weeks gestation of Chronic hypertension affecting 05/29/2025 1:48 PM [facility] End: 62-04-6134Pwxjpsyefjjhpc vitamin b-12Vitamin B12 Lab Routine 20 weeks gestation of Bariatric surgery status complicating , second trimester 1 Occurrences starting 05/29/2025 until 05/29/2026[facility] HospitalNiko Niko SystemComment on above:1 Occurrences starting 05/29/2025 until 05/29/2026 Cyanocobalamin vitamin b-12Vitamin B12 Lab Routine 20 weeks gestation of Bariatric surgery status complicating , second trimester 05/29/2025 1:48 PM [facility] HospitalCytology Cervical or vaginal smear or scraping studyPap Smear Pathology and Cytology Routine Well woman exam with routine gynecological exam Ordered: 06/10/2025[facility] NuveComment on above: Ordered: 06/10/2025 End: 91-28-3280URR 12 leadECG 12 lead ECG Routine 20 weeks gestation of Chronic hypertension affecting 1 Occurrences starting 05/29/2025 until 05/29/2026[employer] Work Phone: comment on above:1 Occurrences starting 05/29/2025 until 05/29/2026EKG 12 leadEKG 12 lead ECG Routine As Needed until discontinued starting 11/30/2021[facility] Phone: comment on above:As Needed until discontinued starting 11/30/2021EKG 12 LeadEKG 12 Lead ECG STAT 11/30/2021 7:35 PM [facility] Phone: eKG 12 LeadEKG 12 Lead ECG STAT 12/05/2021 4:00 PM [facility] End: 73-05-6149Apuszbij [Mass/volume] in Serum or PlasmaFerritin Lab Routine 20 weeks gestation of Bariatric surgery status complicating , second trimester 1 Occurrences starting 05/29/2025 until 05/29/2026[facility] HospitalNeironComment on above:1 Occurrences starting 05/29/2025 until 05/29/2026 Ferritin [Mass/volume] in Serum or PlasmaFerritin Lab Routine 20 weeks gestation of Bariatric surgery status complicating , second trimester 05/29/2025 1:48 PM [employer] End: 42-64-6246WmulxkCqfnwu Lab Routine 20 weeks gestation of Bariatric surgery status complicating ,second trimester 1 Occurrences starting 05/29/2025 until 05/29/2026[facility] HospitalNeironComment on above:1 Occurrences starting 05/29/2025 until 05/29/2026FolateFolate Lab Routine 20 weeks gestation of Bariatric surgery status complicating , second trimester 05/29/2025 1:48 PM IdenIveGlucose [Mass/volume] in Serum or PlasmaPOCT Glucose Point of Care Testing Routine 4X Daily (AC & HS) until discontinued starting 12/01/2021[facility] Phone: comment on above:4X Daily (AC & HS) until discontinued starting 12/01/2021Hemoglobin A1c/Hemoglobin.total in BloodHemoglobin A1c Lab Routine Missed menses , unspecified gestational age ([facility]) Ordered: 03/20/2025[facility] SystemComment on above:Ordered: 03/20/2025Hepatitis B virus surface Ag [Presence] in Serum or Plasma by ImmunoassayHepatitis B surface antigen Lab Routine Missed menses , unspecified gestational age ([facility] C) Ordered: 03/20/2025[facility] HealthcareComment on above:Ordered: 03/20/2025 Hepatitis C virus Ab [Presence] in Serum or Plasma by ImmunoassayHepatitis C antibody Lab Routine Missed menses , unspecified gestational age ([facility]) Ordered: 03/20/2025[facility] HealthcareComment on above:Ordered: 03/20/2025 HIV-1/HIV-2 antigen/antibody combination immunoassayHIV-1 and HIV-2 antibodies Lab Routine Missed menses , unspecified gestational age ([facility]) Ordered: 03/20/2025[facility] HealthcareComment on above:Ordered: 03/20/2025Human papilloma virus DNA [Presence] in Unspecified specimen by Probe with amplificationHPV DNA probe, amplified Microbiology Routine Well woman exam with routine gynecological exam Ordered: 06/10/2025[facility] HealthcareComment on above: Ordered: 06/10/2025 End: 94-75-9781Kpnbimtirjrs pulse oximetryPulse Oximetry Spot Check Respiratory Care Routine One Time for 1 Occurrences starting 12/01/2021 until 12/01/2021 [employer] Phone: comment on above:One Time for 1 Occurrences starting 12/01/2021 until 12/01/2021 End: 18-15-1347Pmpt and TIBCIron and TIBC Lab Routine 20 weeks gestation of Bariatric surgery status complicating , second trimester 1 Occurrences starting 05/29/2025 until 05/29/2026[facility] SystemComment on above:1 Occurrences starting 05/29/2025 until 05/29/2026Iron and TIBCIron and TIBC Lab Routine 20 weeks gestation of Bariatric surgery status complicating , second trimester 05/29/2025 1:48 PM [facility] End: 94-10-4826DKOOXI Lab Routine 20 weeks gestation of Chronic hypertension affecting 1 Occurrences starting 05/29/2025 until 05/29/2026[facility] SystemComment on above:1 Occurrences starting 05/29/2025 until 05/29/2026LDHLDH Lab Routine 20 weeks gestation of Chronic hypertension affecting 51:48 PM [facility] End: 04-57-0638Altxmzcsclt peptide B [Mass/volume] in BloodB-type natriuretic peptide Lab Routine 20 weeks gestation of Chronic hypertension affecting 1 Occurrences starting 05/29/2025 until 05/29/2026[facility] SystemComment on above:1 Occurrences starting 05/29/2025 until 05/29/2026 Natriuretic peptide B [Mass/volume] in BloodB-type natriuretic peptide Lab Routine 20 weeks gestation of Chronic hypertension affecting 05/29/2025 1:48 PM [facility] HospitalNeisseria gonorrhoeae DNA [Presence] in Unspecified specimen by MYNOR with probe detectionNeisseria gonorrhea DNA probe, direct Lab Routine Screen for STD (sexually transmitted disease) Ordered: 06/10/2025[facility] SystemComment on above:Ordered: 06/10/2025 Nicotine and Metabolites panel [Mass/volume] - UrineNicotine and Metabolites, Random, Urine Lab Routine Unable to assess patient's smoking status within the last 12 months 03/27/2024 6:08 PM [facility] HOSPITALAdMobOxygen therapy [Minimum Data Set]Initiate Oxygen Therapy Protocol Respiratory Care Routine As Needed until discontinued starting 11/30/2021[facility] HospitalSea[facility] International Work Phone: comment on above:As Needed until discontinued starting 11/30/2021OCT EKGPOCT EKG ECG Routine Preop testing 10/10/2023[employer] Work Phone: POCT EKGPOCT EKG ECG Routine Preop cardiovascular exam 03/17/2024[employer] Work Phone: End: 12-62-5657Vohbkcg C activityProtein C activity Lab Routine 20 weeks gestation of History of maternal pulmonary embolus 1 Occurrences starting 05/29/2025 until 05/29/2026[facility] HospitalNiko Niko [facility] HospitalComment on above:1 Occurrences starting 05/29/2025 until 05/29/2026Protein C activityProtein C activity Lab Routine 20 weeks gestation of History of maternal pulmonary embolus 05/29/2025 1:48 PM RRsat [facility] End: 69-07-6276Fuuwbfw creat ratioProtein creat ratio Lab Routine 20 weeks gestation of Chronic hypertension affecting 1 Occurrences starting 05/29/2025 until 05/29/2026[facility] HospitalNiko Niko SystemComment on above:1 Occurrences starting 05/29/2025 until 05/29/2026Protein creat ratioProtein creat ratio Lab Routine 20 weeks gestation of Chronic hypertension affecting 05/29/2025 1:48 PM [facility] HospitalLam[facility] HospitalProtein Electrophoresis, UrineProtein Electrophoresis, Urine Lab STAT 11/30/2021 9:20 PM [facility] e(ye)BRAIN Work Phone: End: 11-87-9241Ukazcqq S activityProtein S activity Lab Routine 20 weeks gestation of History of maternal pulmonary embolus 1 Occurrences starting 05/29/2025 until 05/29/2026[facility] HospitalNiko Niko [facility] HospitalComment on above:1 Occurrences starting 05/29/2025 until 05/29/2026Protein S activityProtein S activity Lab Routine 20 weeks gestation of History of maternal pulmonary embolus 05/29/2025 1:48 PM [facility] HospitalLam[facility] HospitalReagin Ab [Presence] in Serum by RPRRPR Lab Routine Missed menses , unspecified gestational age ([facility]) Ordered: 03/20/2025[facility] HealthcareComment on above: Ordered: 03/20/2025Rubella antibody, IgGRubella antibody, IgG Lab Routine Missed menses , unspecified gestational age ([facility]) Ordered: 03/20/2025[facility] HealthcareComment on above:Ordered: 03/20/2025SURESWAB(R) ADVANCED VAGINITIS PLUS, TMASURESWAB(R) ADVANCED VAGINITIS PLUS, TMA Pathology and Cytology Routine Screen for STD (sexually transmitted disease) Ordered: 06/10/2025[facility] [employer] Work Phone: comment on above:Ordered: 06/10/2025 End: 21-45-8800Weucqkg (Vitamin B1), WBThiamin (Vitamin B1), WB Lab Routine 20 weeks gestation of Bariatric surgery status complicating , second trimester 1 Occurrences starting 05/29/2025 until 05/29/2026[facility] e(ye)BRAIN SystemComment on above:1 Occurrences starting 05/29/2025 until 05/29/2026 Thiamin (Vitamin B1), WBThiamin (Vitamin B1), WB Lab Routine 20 weeks gestation of Bariatric surgery status complicating , second trimester 05/29/2025 1:48 PM [facility] e(ye)BRAIN [facility] End: 48-97-7547Mokts [Mass/volume] in Serum or PlasmaUric acid Lab Routine 20 weeks gestation of Chronic hypertension affecting 1 Occ urrences starting 05/29/2025 until 05/29/2026[facility]Comment on above:1 Occurrences starting 05/29/2025 until 05/29/2026Urate [Mass/volume] in Serum or PlasmaUric acid Lab Routine 20 weeks gestation of Chronic hypertension affecting 05/29/2025 1:48 PM [facility] End: 33-33-3758Hvsvdgr D 25 hydroxyVitamin D 25 hydroxy Lab Routine 20 weeks gestation of Bariatric surgery status complicating , second trimester 1 Occurrences starting 05/29/2025 until 05/29/2026[facility] SystemComment on above:1 Occurrences starting 05/29/2025 until 05/29/2026Vitamin D 25 hydroxyVitamin D 25 hydroxy Lab Routine 20 weeks gestation of Bariatric surgery status complicating , second trimester 05/29/2025 1:48 PM [facility] End: 75-10-1571Ipdb, SerumZinc, Serum Lab Routine 20 weeks gestation of Bariatric surgery status complicating , second trimester 1 Occurrences starting 05/29/2025 until 05/29/2026[facility] SystemComment on above:1 Occurrences starting 05/29/2025 until 05/29/2026Zinc, SerumZinc, Serum Lab Routine 20 weeks gestation of Bariatric surgery status complicating , second trimester 05/29/2025 1:48 PM [facility] Immunizations Immunization DateImmunizationNotesCare YholmqhoQfzhrooi04-29-9175cafukgnfn, injectable, quadrivalent, preservative freeRiddhi Plata MD Work Phone: [facility] SystemJxdepyphpm77-96-9710yagcrlbya virus vaccine, unspecified formulationSmemorial [facility] JeroM[facility]05-31-2012hepatitis A vaccine, pediatric/adolescent dosage, 2 dose scheduleRiddhi Plata MD Work Phone: [facility] SystemWljmpfkcyx99-82-8797zsdbifcls, seasonal, injectableRiddhi Plata MD Work Phone: [facility] SystemEhoblevruf42-67-2804wklvp papilloma virus vaccine, quadrivalentRiddhi Plata MD Work Phone: [phone] SystemUsnlcefuwu83-42-8887zsxpqizka A vaccine, pediatric/adolescent dosage, 2 dose scheduleRiddhi Plata MD Work Phone: [facility] SystemDxmwubzdam23-30-5944fcbzn papilloma virus vaccine, quadrivalentRiddhi Plata MD Work Phone: [phone] SystemRrkfxvryja65-93-3507ocvyatvim A vaccine, pediatric/adolescent dosage, 2 dose scheduleRiddhi Plata MD Work Phone: [facility] SystemPdlqxwjztu78-73-3246dldzn papilloma virus vaccine, quadrivalentRiddhi Plata MD Work Phone: [phone] SystemXatctiogma12-67-7439sxsarizdrdzwx polysaccharide (groups A, C, Y and W-135) diphtheria toxoid conjugate vaccine (MCV4P)Riddhi Plata MD Work Phone: [phone] SystemWwgffeokwn68-14-7181gpcjfoi toxoid, reduced diphtheria toxoid, and acellular pertussis vaccine, adsorbedRiddhi Plata MD Work Phone: [facility] SystemJaxpamvdoz18-23-1414knoauzunhu, tetanus toxoids and acellular pertussis vaccine, unspecified formulationRiddhi Plata MD Work Phone: [phone] SystemJwjxpbwqxi16-69-4784inpjlqx, mumps and rubella virus vaccineRiddhi Plata MD Work Phone: [phone] SystemQpxfwogoes96-07-9662ghwvlyqykz vaccine, unspecified formulationRiddhi Plata MD Work Phone: [facility] SystemEugodmtjun12-59-1925saelsorntu, tetanus toxoids and acellular pertussis vaccine, unspecified formulationRiddhi Plata MD Work Phone: [phone] SystemXzkhypnxdz36-42-7473vxctmcglobi influenzae type b vaccine, conjugate unspecified formulationRiddhi Plata MD Work Phone: [facility] SystemNndqvjpnbc79-82-4548qmmjsywwgw, tetanus toxoids and acellular pertussis vaccine, unspecified formulationRiddhi Plata MD Work Phone: [facility] SystemZbkfksarsv51-03-8532pprgzjdoesg influenzae type b vaccine, conjugate unspecified formulationRiddhi Plata MD Work Phone: [facility] SystemOtljbbcemy77-68-1315nuhhijnix B vaccine, pediatric or pediatric/adolescent dosageRiddhi Plata MD Work Phone: [facility] SystemWxowqenvyq88-25-1021ljtwjcljdo vaccine, unspecified formulationRiddhi Plata MD Work Phone: [facility] SystemPltchkxsky47-90-0191sehoezwfxe, tetanus toxoids and acellular pertussis vaccine, unspecified formulationRiddhi Plata MD Work Phone: [facility] SystemVdbuichpsa26-12-2215udwbvpvihll influenzae type b vaccine, conjugate unspecified formulationRiddhi Plata MD Work Phone: [facility] SystemGkgbdhwkuo64-90-1482mbaoazvjb B vaccine, pediatric or pediatric/adolescent dosageRiddhi Plata MD Work Phone: [facility] SystemFsjzlnzysb66-23-0579amoxlssmkg vaccine, unspecified formulationRiddhi Plata MD Work Phone: [facility] SystemMibijjreai67-51-4502uwbhjzzicv, tetanus toxoids and acellular pertussis vaccine, unspecified formulationRiddhi Plata MD Work Phone: [facility] SystemTfhseqfwab68-91-4492ldghzotwfsa influenzae type b vaccine, conjugate unspecified formulationRiddhi Plata MD Work Phone: [facility] SystemPrrylhdjkx42-06-7569scyemonuf B vaccine, pediatric or pediatric/adolescent dosageRiddhi Plata MD Work Phone: [place] [address]Fcuybstotr30-49-8667junsbsk, mumps and rubella virus vaccineRiddhi Plata MD Work Phone: [facility] SystemCacaargyzu60-73-7485ssozdjhczb vaccine, unspecified formulationRiddhi Plata MD Work Phone: [facility] Payers DatePayer CategoryPayerPolicy [id number] Health Insurance [id number] Care Other (unspecified)[employer] [id number] Medicaid (Managed Care)[employer] [employer] [id number] [id number] 2021Medicaid [place] [employer] Member Subscriber Plan / Payer (Effective 2021-Present) Name: Shira Jett Relation to Subscriber: Self Name: Shira Jett Payer ID: [id number] (NAIC) Group ID: Type: Not on file Address: [address] [place] [id number] [id number] 2.16.840.1.442243.3.57[id number] 2.16840.1.501878.3.579.2.853 [id number] 2.16840.1.396689.3.57[id number] 2.16840.1.448783.3.57[id number] 2.840.1.601536.3.57[id number] 2.840.1.456405.3.57[id number] 2.840.1.596525.3.57[id number] 2.840.1.160021.3.57[id number] 2.840.1.364584.3.57[id number] 2.840.1.155958.3.57[id number] 2.840.1.122633.3.57[id number] 2.840.1.375928.3.57[id number] 2.840.1.846346.3.57[id number] 2.16840.1.502599.3.57[id number] 2.16840.1.371438.3.57[id number] 2.840.1.347034.3.579.[id number] 2.840.1.876767.3.579.2.64[id number] 2.840.1.980339.3.57[id number] 2.840.1.117153.3.57[id number] 2.0.1.678335.3.579.[id number] 2.0.1.867041.3.57[id number] 2.0.1.837069.3.57[id number] 2.0.1.755623.3.579.[id number] 2.840.1.288863.3.57[id number] 2.0.1.333522.3.57[id number] 2.840.1.637483.3.57[id number] 2.0.1.080012.3.579.[id number] 2.840.1.892522.3.57[id number] 2.840.1.144781.3.57[id number] 2.16.840.1.047329.3.579.2.4139 [id number] 2.16.840.1.585493.3.57[id number] 2.16.840.1.050877.3.579.2.782050-82-7178Enrs-nlk84841810632-08-4629Iukhvfa [id number] 1.2.840.244686.1.13.239.2.7.3.729734.48945-32-3682Kjkfldr [id number] 1.2.840.399251.1.13.239.2.7.3.028107.315Unknown Social History DateTypeDetailFacilityTobacco smoking status NHISTobacco smoking consumption unknownH[facility](ye)BRAIN Work Phone: start: 05-51-0172Hmp Assigned At BirthNot on [facility] e(ye)BRAIN Work Phone: start: 11-15-2021 End: 50-98-4715Emgmnlyt to SARS-CoV-2 (event)Not sureHocking Valley Community Hospital e(ye)BRAIN Work Phone: start: 11-29-2021 End: 00-59-9941Vwjkopr smoking status NHISNever smoked tobaccoHocking Valley Community Hospital e(ye)BRAIN Work Phone: start: 11-29-2021 End: 17-23-0498Prbzyyd use and exposureSmokeless tobacco non-userHocking Valley Community Hospital e(ye)BRAIN Work Phone: start: 12-01-2021 End: 35-97-0371Bxyoouc intakeLifetime non-drinker (finding)[facility] Health Work Phone: start: 23-21-8750Svzojqc SDOH Roqucwgde1Orsjx Health Work Phone: start: 87-72-1116Oxeflki SDOH Food Ingfe8Yeymq e(ye)BRAIN Work Phone: start: 03-04-2024 End: 96-72-2890Wiaydsf of Social functionNovant Health Medical Park Hospitaltart: 03-04-2024 End: 74-03-3162Aaifsnp use panelNovant Health Medical Park Hospitaltart: 73-46-6954Cumjzix CommentCaffeine intake: 1-2 cups per day coffeeSaint Luke's Health SystemStart: 07-19-2023 End: 45-20-8073Kakzjcn intakeEx-drinker (finding)[facility] Hospitaltart: 84-71-0876Frusmwmezr depression screening szoybgvpvg9MmlSiperxMount Carmel Health System Start: 17-40-1641Lovdmaw CommentsocialNovant Health Medical Park Hospitaltart: 1995 Sex Assigned At BirthMiss[facility] Delta Medical Centertart: 95-43-4260Zybzvd identityIdentifies as female gender (finding)[facility] Hospitaltart: 61-62-7225Bxiuvr orientationHeterosexual (finding)[facility] SystemHas the Sosh, oil, or water Wingz threatened to shut off services in your home in past 12University [facility] Health NetworkHow often to you have a drink containing alcohol?NeverNovant Health Medical Park Hospitaltart: 94-42-4032FboFhcxep (finding)[facility] Hospitaltart: 71-19-3366UrhdscyvlNELX Healthcare Medical Equipment Procedure CodeEquipment CodeEquipment Original TextEquipment IdentifierDates Check fingersticks 4 times daily, fasting and 1 hour after the start of a meal [id number]: 05-29-2025 Goals DatePatient GoalDesired Activity/StatePersonal health goalPersonal health goal Comment on above: Evaluation of progress towards goal: safe transition from hospital to home with family support. Clinical Notes 11-28-2021 to 06-24-2025 Note Date & YjicEsbsGkuglzvs26-25-1859 History of Present illness Narrative* JOSEPHINE Chinchilla [...] body mass index of 60.0-69.9 in adult ([facility]) 01/26/2023 Polycystic ovarian disease 01/26/2023 Primary hypertension 01/26/2023 Adjustment disorder with anxiety 11/30/2021 Amnesia 05/17/2023 Anxiety 07/07/2019 Anemia 06/26/2019 Depression 06/13/2019 Disorder of endocrine system 05/17/2023 Family history of diabetes during 11/28/2021 Family history of thrombosis 03/17/2022 Frequent headaches 05/17/2023 Gastroesophageal reflux disease 12/15/2019 Gestational diabetes mellitus (GDM) ([facility]) 12/09/2018 History of diet controlled gestational diabetes mellitus (GDM) 11/30/2021 Iron deficiency anemia 12/29/2019 Irregular periods 05/17/2023 Menorrhagia with regular cycle 05/17/2023 Asthma ([facility]) 12/09/2018 Class 3 severe obesity due to excess calories with serious comorbidity and body mass index (BMI) of50.0 to 59.9 in adult ([facility]) 05/17/2023 Nausea and vomiting 05/17/2023 Pneumonia due to infectious organism 07/30/2022 Preeclampsia in period ([facility]) 11/26/2021 Acute pulmonary embolism ([facility]) 05/17/2023 Single subsegmental pulmonary embolism without acute cor pulmonale ([facility]) 05/17/2023 Seasonal allergic rhinitis due to pollen 12/15/2019 Thyroid nodule 05/17/2023 Urinary tract infection without hematuria 05/17/2023 LUCIANO on CPAP 02/22/2023 History of pulmonary embolism 03/17/2022 H/O gastric bypass 04/20/2025 Resolved Ambulatory Problems Diagnosis Date Noted No Resolved Ambulatory Problems Past Medical History: Diagnosis Date Acute memory impairment COVID 02/2020 Encounter for insertion of Mirena IUD GERD without esophagitis Gestational diabetes ([facility]) H/O blood clots H/O: hypertension High blood pressure History of being hospitalized Hormone imbalance Intrauterine device surveillance Irregular bleeding Morbid obesity with BMI of 50.0-59.9, adult ([facility]) Nausea Nausea with vomiting Pneumonia 07/30/2022 hypertension ([facility]) Pulmonary embolism ([facility]) 11/2021 Well woman exam HISTORY PAST [...] nursing note reviewed. Exam conducted with a windscreen fitter present. Vitals: Estimated body mass index is 43.65 kg/m as calculated from the following: Height as of 10/10/24: 5' 1 . Weight as of 06/10/25: 231 lb. BP: Patient's last menstrual period was 01/09/2025. ASSESSMENT & PLAN ICD-10-CM 1. Second trimester ([facility]) Z34.92 POCT urinalysis dipstick manually resulted 2. 23 weeks gestation of ([facility]) Z3A.23 3. History of diet controlled gestational diabetes mellitus (GDM) Z86.32 4. Preeclampsia in period ([facility]) O14.95 5. History of pulmonary embolism [...] given A1C/CBC order to have scheduled at [facility]. Pt can't not drink the glucose drink due to having gastric bypass surgery. Pt was advised to make sure to have her blood drawn. PVU. Pt states she was dx w/gallstones at the [facility] on 06/17/2025. Pt states she ended up [...] headaches GERD without esophagitis Gestational diabetes ([facility]) H/O blood clots H/O gastric bypass H/O: hypertension High blood pressure History of being hospitalized Pt was re-admitted to [facility] for HTN (11/2021) , Pt had a baby (11/21/21) Hormone imbalance Intrauterine device surveillance Irregular bleeding Morbid obesity with BMI of 50.0-59.9, adult (CMS-HCC) Nausea Nausea with vomiting Pneumonia 07/30/2022 hypertension (HHS-HCC) Pulmonary embolism (HCC) 11/2021 Rt. ; [facility] Well woman exam [3] Family History [...] FINE PERCUTANEOUS ASPIRATION 06/14/2020 documented in this encounterSaint Luke's Health SystemRmdaqmxelg58-99-6181 Miscellaneous Notes* Telephone Encounter - Winter Gibbons LPN - 06/22/2025 3:41 PM EDT [facility]email at [facility] with my direct phone number to inquire why patient is unable to refill her Lovexox as the prior auth was approved by insurance last week. documented in this encounterMount Carmel [facility] System10-13-2025 Telephone encounter Note* Telephone Encounter - Winter Gibbons LPN - 06/22/2025 3:41 PM EDT Left voicemail at [email or web address] with my direct phone number to inquire why patient is unable to refill her Lovexox as the prior auth was approved by insurance last week. [facility]10-08-2025 Miscellaneous Notes* Telephone Encounter - Winter Gibbons LPN - 06/17/2025 8:59 AM EDT Spoke with patient in regards to [employer] message from last evening. Patient states the SOB and under the rib pain comes and goes. Denies headache or blurry vision but is noticing some swelling. Patient states this started out of the blue. Personal Lines Agent encouraged patient to be evaluated as soon as possible at the closest Emergency Room for further evaluation. Patient verbalized understanding. documented in this encounterMount Carmel Health System10-08-2025 Telephone encounter Note* Telephone Encounter - Winter Gibbons LPN - 06/17/2025 8:59 AM EDT Spoke with patient in regards to [employer] message from last evening. Patient states the SOB and under the rib pain comes and goes. Denies headache or blurry vision but is noticing some swelling. Patient states this started out of the blue. Personal Lines Agent encouraged patient to be evaluated as soon as possible at the closest Emergency Room for further evaluation. Patient verbalized understanding. [facility]10-01-2025 History of Present illness Narrative* [...] body mass index of 60.0-69.9 in adult ([facility]) 01/26/2023 Polycystic ovarian disease 01/26/2023 Primary hypertension 01/26/2023 Adjustment disorder with anxiety 11/30/2021 Amnesia 05/17/2023 Anxiety 07/07/2019 Anemia 06/26/2019 Depression 06/13/2019 Disorder of endocrine system 05/17/2023 Family history of diabetes during 11/28/2021 Family history of thrombosis 03/17/2022 Frequent headaches 05/17/2023 Gastroesophageal reflux disease 12/15/2019 Gestational diabetes mellitus (GDM) ([facility]) 12/09/2018 History of diet controlled gestational diabetes mellitus (GDM) 11/30/2021 Iron deficiency anemia 12/29/2019 Irregular periods 05/17/2023 Menorrhagia with regular cycle 05/17/2023 Asthma ([facility]) 12/09/2018 Class 3 severe obesity due to excess calories with serious comorbidity and body mass index (BMI) of50.0 to 59.9 in adult ([facility]) 05/17/2023 Nausea and vomiting 05/17/2023 Pneumonia due to infectious organism 07/30/2022 Preeclampsia in period ([facility]) 11/26/2021 Acute pulmonary embolism ([facility]) 05/17/2023 Single subsegmental pulmonary embolism without acute cor pulmonale ([facility]) 05/17/2023 Seasonal allergic rhinitis due to pollen 12/15/2019 Thyroid nodule 05/17/2023 Urinary tract infection without hematuria 05/17/2023 LUCIANO on CPAP 02/22/2023 History of pulmonary embolism 03/17/2022 H/O gastric bypass 04/20/2025 Resolved Ambulatory Problems Diagnosis Date Noted No Resolved Ambulatory Problems Past Medical History: Diagnosis Date Acute memory impairment COVID 02/2020 Encounter for insertion of Mirena IUD GERD without esophagitis Gestational diabetes ([facility]) H/O blood clots H/O: hypertension High blood pressure History of being hospitalized Hormone imbalance Intrauterine device surveillance Irregular bleeding Morbid obesity with BMI of 50.0-59.9, adult ([facility]) Nausea Nausea with vomiting Pneumonia 07/30/2022 hypertension (HHS-HCC) Pulmonary embolism (HCC) 11/2021 Well woman exam HISTORY PAST MEDICAL HISTORY SOCIAL HISTORY Past Medical History: Diagnosis Date Acute memory impairment Anemia Asthma (HCC) COVID 02/2020 Depression Encounter for insertion of Mirena IUD Frequent headaches GERD without esophagitis Gestational diabetes ([facility]) H/O blood clots H/O gastric bypass H/O: hypertension High blood pressure History of being hospitalized Pt was re-admitted to [facility] for HTN (11/2021) , Pt had a baby (11/21/21) Hormone imbalance Intrauterine device surveillance Irregular bleeding Morbid obesity with BMI of 50.0-59.9, adult ([facility]) Nausea Nausea with vomiting Pneumonia 07/30/2022 hypertension ([facility]) Pulmonary embolism (HCC) 11/2021 Rt. ; [facility] post Well woman exam Social History Tobacco [...] nursing note reviewed. Exam conducted with a windscreen fitter present. Vitals: Estimated body mass index is 44.37 kg/m as calculated from the following: Height as of 10/10/24: 5' 1 . Weight as of 05/14/25: 234 lb 12.8 oz. BP: Patient's last menstrual period was 01/09/2025. ASSESSMENT & PLAN ICD-10-CM 1. 21 weeks gestation of ([facility]) Z3A.21 POCT urinalysis dipstick manually resulted 2. Well woman exam Z01.419 3. Second trimester ([facility]) Z34.92 4. Screen for STD (sexually [...] of: Ned Spicer NP documented in this encounterSaint Luke's Health SystemMuqesdgoth03-78-1119 History of Present illness Narrative* Winter Gibbons [...] risk Have you been seen here at [facility] in a previous ? No Recent ER visits or hospitalizations? Yes, for elevated blood pressure Bring blood sugar log or meter with you today? (Please bring them with you for every visit at [facility]) N/A Flu vaccine (Jul-November)? N/A Any concerns [...] for trisomy 13, 18, 21, monosomy X, ([place]) Carrier screening: I have reviewed the pertinent [...] Date CARDIAC CATHETERIZATION 07/30/2022 CARDIAC CATHETERIZATION 11/23/2018 ALEJOI DV5 BYPASS GASTRIC BONNIE-EN Y N/A 04/23/2024 Performed by Tonia Mnazo MD at [facility] FINE NEEDLE ASPIRATION 06/14/2020 US Guided [...] recommended threshold of 160/110. Referenc e: PMID: [id number], 2021. Blood pressures do increase as progresses [...] preeclampsia prevention as is recommended by the [place] [employer]ne[employer] Committee Opinion No. 743. [...] aspirin vs 10.3% no aspirin, p=0.45) (PMBID: [id number]). Given well-established benefits baby aspirin for the prevention of preeclampsia, I recommend initiating baby aspirin even in the setting of history of Bonnie-en-Y surgery. Micronutrient Dosing Recommendations: Calcium: recommend 1000-1200mg daily; if deficient, recommend 8924-2315 mg PO daily in divided doses Vitamin [...] patient is in complete care of her plumber and tinner. Patient does have ultrasound and office visit [...] procedures Referring and communicating with other health behavioral health care coordinator (not separately reported) Documenting clinical information in the electronic or other health record Independently interpreting results (not separately reported) and communicating results to the patient/family/caregiver Ester Pratt MD Maternal- Medicine [place] [id number] [place] [address] This document was created with [employer] technology. Though I make every effort to review the dictation as it is transcribed, on occasion the spoken word can be misinterpreted by the technology leading to inappropriate words, phrases, or sentences. This note is addressed to the requesting provider as a consultation for clinical guidance. Specificmedical abbreviations are occasionally used and those are generally approved by the [place]?Board of?Obstetrics and?Gynecology?as well as?Antonio dewey abbreviations. The above plan of care was based solely on the diagnoses for which a consultation was requested. ?More frequent testing may be indicated based on her other medical/obstetrical conditions. The management of other or medical conditions is beyond the scope of requested consultation and will c ontinue to be followed by the primary plumber and tinner or primary care provider. Note to patient: [...] opinion of the practitioner. documented in this encounterMount Carmel Health System09-15-2025 Telephone encounter Note* Telephone Encounter - Riddhi Plata MD - 05/25/2025 6:30 PM EDT Approvals with refills [facility] SystemOitltlvfoo65-82-9665 Miscellaneous Notes* Telephone Encounter - Riddhi Plata MD - 05/25/2025 6:30 PM EDT Approvals with refills documented in this encounterSaint Luke's Health SystemGhydrilgov41-21-8663 History of Present illness Narrative* Ned Spicer [...] body mass index of 60.0-69.9 in adult ([facility]) 01/26/2023 Polycystic ovarian disease 01/26/2023 Primary hypertension 01/26/2023 Adjustment disorder with anxiety 11/30/2021 Amnesia 05/17/2023 Anxiety 07/07/2019 Anemia 06/26/2019 Depression 06/13/2019 Disorder of endocrine system 05/17/2023 Family history of diabetes during 11/28/2021 Family history of thrombosis 03/17/2022 Frequent headaches 05/17/2023 Gastroesophageal reflux disease 12/15/2019 Gestational diabetes mellitus (GDM) ([facility]) 12/09/2018 History of diet controlled gestational diabetes mellitus (GDM) 11/30/2021 Iron deficiency anemia 12/29/2019 Irregular periods 05/17/2023 Menorrhagia with regular cycle 05/17/2023 Asthma ([facility]) 12/09/2018 Class 3 severe obesity due to excess calories with serious comorbidity and body mass index (BMI) of50.0 to 59.9 in adult ([facility]) 05/17/2023 Nausea and vomiting 05/17/2023 Pneumonia due to infectious organism 07/30/2022 Preeclampsia in period ([facility]) 11/26/2021 Acute pulmonary embolism (HCC) 05/17/2023 Single [...] IUD GERD without esophagitis Gestational diabetes ([facility]) H/O blood clots H/O: hypertension High blood pressure History of being hospitalized Hormone imbalance Intrauterine device surveillance Irregular bleeding Morbid obesity with BMI of 50.0-59.9, adult ([facility]) Nausea Nausea with vomiting Pneumonia 07/30/2022 hypertension ([facility]) Pulmonary embolism (HCC) 11/2021 Well woman exam HISTORY PAST MEDICAL HISTORY SOCIAL HISTORY Past Medical History: Diagnosis Date Acute memory impairment Anemia Asthma ([facility]) COVID 02/2020 Depression Encounter for insertion of Mirena IUD Frequent headaches GERD without esophagitis Gestational diabetes ([facility]) H/O blood clots H/O gastric bypass H/O: hypertension High blood pressure History of being hospitalized Pt was re-admitted to [facility] for HTN (11/2021) , Pt had a baby (11/21/21) Hormone imbalance Intrauterine device surveillance Irregular bleeding Morbid obesity with BMI of 50.0-59.9, adult ([facility]) Nausea Nausea with vomiting Pneumonia 07/30/2022 hypertension ([facility]) Pulmonary embolism (HCC) 11/2021 Rt. ; [facility] post Well woman exam Social History Tobacco [...] 2. Screening, , for anatomic survey ([facility]) Z36.89 US OB 14+ weeks anatomy scan US OB 14+ weeks anatomy scan 3. Second trimester ([facility]) Z34.92 POCT urinalysis dipstick manually resulted Alpha fetoprotein, maternal Alpha fetoprotein, maternal 4. 17 weeks gestation of ([facility]) Z3A.17 POCT urinalysis dipstick manually resulted [...] routine OB appointment. Patient is scheduled with [facility] on May 29 and was given early 1 hour GTT at last appointment an states she will obtain 1 hour glucose this week. Taking Labetalol 200 mg TID and monitoring B/P at home. B/P today 124/80. Documented by Ned Spicer NP on behalf of: Ned Spicer NP documented in this encounterSaint Luke's Health [id number] History of Present illness Narrative* Ned Spicer [...] body mass index of 60.0-69.9 in adult ([facility]) 01/26/2023 Polycystic ovarian disease 01/26/2023 Primary hypertension 01/26/2023 Adjustment disorder with anxiety 11/30/2021 Amnesia 05/17/2023 Anxiety 07/07/2019 Anemia 06/26/2019 Depression 06/13/2019 Disorder of endocrine system 05/17/2023 Family history of diabetes during 11/28/2021 Family history of thrombosis 03/17/2022 Frequent headaches 05/17/2023 Gastroesophageal reflux disease 12/15/2019 Gestational diabetes mellitus (GDM) ([facility]) 12/09/2018 History of diet controlled gestational diabetes mellitus (GDM) 11/30/2021 Iron deficiency anemia 12/29/2019 Irregular periods 05/17/2023 Menorrhagia with regular cycle 05/17/2023 Asthma ([facility]) 12/09/2018 Class 3 severe obesity due to excess calories with serious comorbidity and body mass index (BMI) of50.0 to 59.9 in adult ([facility]) 05/17/2023 Nausea and vomiting 05/17/2023 Pneumonia due to infectious organism 07/30/2022 Preeclampsia in period ([facility]) 11/26/2021 Acute pulmonary embolism (HCC) 05/17/2023 Single [...] IUD GERD without esophagitis Gestational diabetes ([facility]) H/O blood clots H/O: hypertension High blood pressure History of being hospitalized Hormone imbalance Intrauterine device surveillance Irregular bleeding Morbid obesity with BMI of 50.0-59.9, adult ([facility]) Nausea Nausea with vomiting Pneumonia 07/30/2022 hypertension ([facility]) Pulmonary embolism (HCC) 11/2021 Well woman exam HISTORY PAST MEDICAL HISTORY SOCIAL HISTORY Past Medical History: Diagnosis Date Acute memory impairment Anemia Asthma ([facility]) COVID 02/2020 Depression Encounter for insertion of Mirena IUD Frequent headaches GERD without esophagitis Gestational diabetes ([facility]) H/O blood clots H/O gastric bypass H/O: hypertension High blood pressure History of being hospitalized Pt was re-admitted to [facility] for HTN (11/2021) , Pt had a baby (11/21/21) Hormone imbalance Intrauterine device surveillance Irregular bleeding Morbid obesity with BMI of 50.0-59.9, adult ([facility]) Nausea Nausea with vomiting Pneumonia 07/30/2022 hypertension ([facility]) Pulmonary embolism (HCC) 11/2021 Rt. ; [facility] post Well woman exam Social History Tobacco [...] nursing note reviewed. Exam conducted with a windscreen fitter present. Vitals: Estimated body mass index is 43.08 kg/m as calculated from the following: Height as of 10/10/24: 5' 1 . Weight as of this encounter: 228 lb. BP: 138/78 Patient's last menstrual period was 01/09/2025. ASSESSMENT & PLAN ICD-10-CM 1. Second trimester ([facility]) Z34.92 POCT urinalysis dipstick manually resulted 2. 14 weeks gestation of ([facility]) Z3A.14 3. Primary hypertension I10 4. [...] for routine OB appointment. Will refer to M with historyof PE and gastric bypass. Will obtain early 1 hour glucose. Documented by Ned Spicer NP on behalf of: Bin Morales DO documented in this encounterSaint Luke's Health [id number] History of Present illness Narrative* Leslye Chairez [...] body mass index of 60.0-69.9 in adult ([facility]) 01/26/2023 Polycystic ovarian disease 01/26/2023 Primary hypertension 01/26/2023 Adjustment disorder with anxiety 11/30/2021 Amnesia 05/17/2023 Anxiety 07/07/2019 Anemia 06/26/2019 Depression 06/13/2019 Disorder of endocrine system 05/17/2023 Family history of diabetes during 11/28/2021 Family history of thrombosis 03/17/2022 Frequent headaches 05/17/2023 Gastroesophageal reflux disease 12/15/2019 Gestational diabetes mellitus (GDM) ([facility]) 12/09/2018 History of diet controlled gestational diabetes mellitus (GDM) 11/30/2021 Iron deficiency anemia 12/29/2019 Irregular periods 05/17/2023 Menorrhagia with regular cycle 05/17/2023 Asthma ([facility]) 12/09/2018 Class 3 severe obesity due to excess calories with serious comorbidity and body mass index (BMI) of50.0 to 59.9 in adult ([facility]) 05/17/2023 Nausea and vomiting 05/17/2023 Pneumonia due to infectious organism 07/30/2022 Preeclampsia in period ([facility]) 11/26/2021 Acute pulmonary embolism ([facility]) 05/17/2023 Single subsegmental pulmonary embolism without acute cor pulmonale ([facility]) 05/17/2023 Seasonal allergic rhinitis due to pollen 12/15/2019 Thyroid nodule 05/17/2023 Urinary tract infection without hematuria 05/17/2023 LUCIANO on CPAP 02/22/2023 History of pulmonary embolism 03/17/2022 Resolved Ambulatory Problems Diagnosis Date Noted No Resolved Ambulatory Problems Past Medical History: Diagnosis Date Acute memory impairment COVID 02/2020 Encounter for insertion of Mirena IUD GERD without esophagitis Gestational diabetes ([facility]) H/O blood clots H/O gastric bypass H/O: hypertension High blood pressure History of being hospitalized Hormone imbalance Intrauterine device surveillance Irregular bleeding Morbid obesity with BMI of 50.0-59.9, adult ([facility]) Nausea Nausea with vomiting Pneumonia 07/30/2022 hypertension ([facility]) Pulmonary embolism ([facility]) 11/2021 Well woman exam Family History Problem [...] dipstick manually resulted , unspecified gestational age ([facility]) - Type and screen; Future - [...] of normal first in first trimester ([facility]) - Rapid drug screen, urine; Future [...] or undercooked meat, and [facility]. Patient has also been advised to not change litter boxes and eat 6 small meals a day. Patient has been consulted regarding the do's and don'ts ofpregnancy. Patient was given labs and all questions and concerns were answered. Patient given [place] to have completed with initial labs and [...] by: Leslye Chairez LPN documented in this encounterSaint Luke's Health [id number] History of Present illness Narrative* Moriah Guthrie PA-C - 01/01/2025 11:30 AM EDTSummary: 8 months s/p FRANK, Dr. Manzo Images from the original note were not included. [facility] GENERAL SURGERY-BARIATRIC [facility] [address] [place] [phone] Subjective Patient ID: Shira Jett is a [...] Morbid Obesity Height: 5 ft 1 in [place] body weight: 132 lb BMI 25.0 Personal Goal: To get healthy, stop BP meds, improve LUCIANO Pre op: 359 lb BMI 67.87 1 week post op: 338 lb BMI 63.86 6 weeks post op: NO RECRUITING CONSULTANT VISIT 3 months post op: NO VISIT [...] syndrome) Pneumonia Preeclampsia, severe 11/23/2018 Pulmonary embolism ([facility]) Shortness of breath Visual impairment stigmatism ROS: [...] any adverse reactions immediately. documented in this [facility]04-24-2025 Instructions* Patient Instructions* Moriah Guthrie PA-C - [...] visit with Dr. Manzo documented in this encounterMount Carmel Health System02-20-2025 History of Present illness Narrative* Nilam Stallworth RN - 10/30/2024 8:38 AM EST 6 month labs entered. Patient has appointment 11/13/24 with May. documented in this encounterMount Carmel Health System01-31-2025 History of Present illness Narrative* [...] B-12) 1000 MCG/ML injection D3-50 1.25 MG (52593 UT) capsule fluticasone (Flonase) 50 MCG/ACT nasal [...] Depression: Not at risk (04/23/2024) Received from [employer] PHQ-2 Total Score: 0 REVIEW OF SYMPTOMS: [...] Orders STATUS COVID-19/FLU (Completed) documented in this encounterSaint Luke's Health SystemYqphumchus14-17-7723 History of Present illness Narrative* Riddhi Plata [...] B-12) 1000 MCG/ML injection D3-50 1.25 MG (50733 UT) capsule fluticasone (Flonase) 50 MCG/ACT nasal [...] Depression: Not at risk (04/23/2024) Received from [employer] PHQ-2 Total Score: 0 REVIEW OF SYMPTOMS: [...] TIBC Assessment & Plan documented in this encounterSaint Luke's Health SystemDpamfrddox26-63-0352 History of Present illness Narrative* Riddhi Plata [...] mg, Oral, Every morning D3-50 1.25 MG (20578 UT) capsule fluticasone (Flonase) 50 MCG/ACT nasal [...] Depression: Not at risk (04/23/2024) Received from [employer] PHQ-2 Total Score: 0 REVIEW OF SYMPTOMS: [...] importance of vitamin comlpiance documented in this encounterSaint Luke's Health SystemKivvoiszjq99-71-3955 History of Present illness Narrative* Judson Guzmán [...] any adverse reactions immediately. documented in this encounterMount Carmel Health System09-25-2024 History of Present illness Narrative* [...] % Decreased BMI: 10.14 Tacking intake in [employer] sly. Struggles meeting 80 grams of protein [...] iron daily or 1 vitamin daily. 2) 3218-7473 mg calcium in divided doses (2x/day) for sleeve and gastric bypass, 3953-5707 mg in divided doses (3x/day) for SADS [...] all discussed has been provided within the [facility] Bariatric Guide. Start time: 1038 End time: 110 documented in this encounterMount Carmel Health System09-25-2024 Instructions* Patient Instructions* Jenny Moise RD - 06/04/2024 10:30 AM EDT [facility]. If you re looking for general health and wellness resources, please visit [email or web address] documented in this [facility]08-22-2024 History of Present illness Narrative* Jenny Moise [...] Weight Lost (lbs): 21.01 since Surgery Date: 08/14/24 % Decreased BMI: 5.85 % Decreased Excess [...] all discussed has been provided within the [facility] Bariatric Guide. Nutrition Monitoring: To follow up approximately 6 weeks post-op weight loss surgery. Start time: 1243 End time: 1301 documented in this encounterMount Carmel Health System08-22-2024 Instructions* Patient Instructions* Jenny Moise RD - 05/01/2024 1:00 PM EDT Read the [facility] Bariatric Guide. If you re looking for general health and wellness resources, please visit [email or web address] documented in this encounterMount Carmel Health System08-22-2024 History of Present illness Narrative* Toina Manzo MD - 05/01/2024 12:30 PM EDT [facility] GENERAL SURGERY-BARIATRIC [address] [place] [phone] SURGICAL WEIGHT LOSS PROGRAM PROGRESS NOTE POSTOP [...] Group [x] Exercise Regularly documented in this encounterMount Carmel Health System08-18-2024 Miscellaneous Notes* Telephone Encounter - NEIL Davenport - 04/27/2024 1:07 PM EDT Contract: OC 105 Patient calling in stating she just had surgery on the Apr 23 and she is having bloody mucous when she coughs. Connected Dr. Manzo with Shira documented in this encounterMount Carmel Health System08-18-2024 Telephone encounter Note* Telephone Encounter - NEIL Davenport - 04/27/2024 1:07 PM EDT Contract: OC 105 Patient calling in stating she just had surgery on the Apr 23 and she is having bloody mucous when she coughs. Connected Dr. Manzo with Shira [facility]08-15-2024 Hospital course Narrative* Moriah Guthrie [...] Your Medications These medications were sent to [facility] [id number] [facility] [address] [facility] [address] [facility] [id number] cyclobenzaprine 10 mg tablet enoxaparin 40 mg/0.4 mL syringe omeprazole 40 mg capsule ondansetron ODT 4 mg disintegrating tablet oxyCODONE-acetaminophen 5-325 mg per tablet Moriah Guthrie PA-C 04/24/24 1048 Moriah Guthrie PA-C 04/24/24 1050 documented in this encounterMount Carmel Health System08-15-2024 Progress note* Discharge Planning Note [...] - Shira Bledsoe RN 04/24/24 10:44 AM [facility]08-15-2024 Miscellaneous Notes* Discharge Planning Note [...] Description: INTERVENTIONS: 1. Encourage patient or legal rental representative to report early pain and ask [...] per policy 9. Teach patient or legal rental representative interventions for comforting Outcome: Progressing Note: [...] at the bedside 7. Instruct patient/ patient rental representative about use of safety devices 8. Include patient/ patient rental representative in decisions related to safety Outcome: [...] hygiene technique 7. Identify and instruct patient/patient rental representative in use of appropriate isolation precautionsfor identified infection/symptoms 8. Provide and discuss with patient/patient rental representative on educational MDRO sheet 9. Encourage and monitor nutritional status daily and consult store mgr if indicated 10. Implement neutropenic guidelines as needed 11. Review exposure to history of communicable disease and recent travel history on admission 12. Encourage annual influenza vaccine 13. Encourage pneumonia vaccine Outcome: Progressing Note: Evaluation of progress towards goal: afebrile, cont to monitor Problem: Knowledge Deficit Goal: Patient/patient rental representative demonstrates understanding of disease process, treatment [...] Collaborate with ancillary departments 14. Include patient/patient rental representative in decisions related to anxiety Outcome: [...] care 6. Collaborate with pastoral/spiritual care, social group worker, mental health counselor as needed. 7. Instruct patient on diversional activities such as physical activity, distraction, and deep breathing exercises to assist with coping 8. Involve patient's rental representative in care Outcome: Progressing Note: Evaluation [...] Description: INTERVENTIONS: 1. Encourage patient or legal rental representative to report early pain and ask [...] per policy 9. Teach patient or legal rental representative interventions for comforting Outcome: Progressing Note: [...] at the bedside 7. Instruct patient/ patient rental representative about use of safety devices 8. Include patient/ patient rental representative in decisions related to safety Outcome: [...] hygiene technique 7. Identify and instruct patient/patient rental representative in use of appropriate isolation precautionsfor identified infection/symptoms 8. Provide and discuss with patient/patient rental representative on educational MDRO sheet 9. Encourage and monitor nutritional status daily and consult store mgr if indicated 10. Implement neutropenic guidelines as needed 11. Review exposure to history of communicable disease and recent travel history on admission 12. Encourage annual influenza vaccine 13. Encourage pneumonia vaccine Outcome: Progressing Note: Evaluation of progress towards goal: Pt vitals and labs monitored, proper standard precautions for infection prevention, all insertion/surgical sites monitored for infection Problem: Knowledge Deficit Goal: Patient/patient rental representative demonstrates understanding of disease process, treatment [...] of 0 - 24 or indicated by [facility] Rehab Assessment Goal: Patient should be free from fall Description: Interventions: 1. [place] to environment 2. Hourly rounds addressing the [...] non-skid footwear 11. Teach patient and patient rental representative to maintain environment for safety and [...] Description: INTERVENTIONS: 1. Encourage patient or legal rental representative to report early pain and ask [...] per policy 9. Teach patient or legal rental representative interventions for comforting Outcome: Progressing Note: [...] at the bedside 7. Instruct patient/ patient rental representative about use of safety devices 8. Include patient/ patient rental representative in decisions related to safety Outcome: Progressing Note: Evaluation of progress towards goal: patient is independent and stead on feet Problem: Knowledge Deficit Goal: Patient/patient rental representative demonstrates understanding of disease process, treatment [...] Bonnie-en-Y Gastric Bypass Surgeon: Tonia Manzo MD Balance Assembler: Hanna Jaquez MD-Fellow Anesthesia: General Endotracheal Intra-operative [...] this fire was done then a 32 Dutch [employer] 3D orogastric tube was guided along the [...] brought up to the pouch in an [place] loop technique and reached the pouch without [...] Prior to completing the stoma, the 32 Dutch tube was advanced from the pouch into [...] as the Bonnie limb and then a pjaf-op-nolr stapled jejunojejunostomy was completed using a 60 [...] TONIA MANZO MD 04/23/24 documented in this encounterMount Carmel Health System08-15-2024 Plan of care note * Plan of Care - Olga Montana RN - 04/24/2024 10:34 AM EDT Problem: Pain Goal: Patient goal is pain score less than 4, able to rest, and participant in treatment plan as appropriate Description: INTERVENTIONS: 1. Encourage patient or legal rental representative to report early pain and ask [...] per policy 9. Teach patient or legal rental representative interventions for comforting Outcome: Progressing Note: [...] at the bedside 7. Instruct patient/ patient rental representative about use of safety devices 8. Include patient/ patient rental representative in decisions related to safety Outcome: [...] hygiene technique 7. Identify and instruct patient/patient rental representative in use of appropriate isolation precautionsfor identified infection/symptoms 8. Provide and discuss with patient/patient rental representative on educational MDRO sheet 9. Encourage and monitor nutritional status daily and consult store mgr if indicated 10. Implement neutropenic guidelines as needed 11. Review exposure to history of communicable disease and recent travel history on admission 12. Encourage annual influenza vaccine 13. Encourage pneumonia vaccine Outcome: Progressing Note: Evaluation of progress towards goal: afebrile, cont to monitor Problem: Knowledge Deficit Goal: Patient/patient rental representative demonstrates understanding of disease process, treatment [...] planning to home later today Additional Comments: [facility] e(ye)BRAIN [id number] History of Present illness Narrative* Melanie Zee [...] was able to void. Relates to dehydration, val did not drink very much yesterday due [...] on having access to the bariatric surgeon online services manager 02/04, by calling the office phone number. Will monitor her B/P when goes home. Instructed to bring B/P log to her one-week follow-up appointment. All education provided outlined within the [facility] Bariatric Guide. Patient verbalized an understanding of all education reinforced. Personalized letter mailed to patient, providing fiction writer's contact information. Melanie Zee RN, CBN Metabolic & Bariatric Surgery Coordinator [facility] Weight Loss Surgery * Moriah [...] Guthrie PA-C 04/24/24 1046 documented in this encounterMount Carmel Health System08-14-2024 Plan of care note * [...] Collaborate with ancillary departments 14. Include patient/patient rental representative in decisions related to anxiety Outcome: [...] care 6. Collaborate with pastoral/spiritual care, social group worker, mental health counselor as needed. 7. Instruct patient on diversional activities such as physical activity, distraction, and deep breathing exercises to assist with coping 8. Involve patient's rental representative in care Outcome: Progressing Note: Evaluation [...] Description: INTERVENTIONS: 1. Encourage patient or legal rental representative to report early pain and ask [...] per policy 9. Teach patient or legal rental representative interventions for comforting Outcome: Progressing Note: [...] at the bedside 7. Instruct patient/ patient rental representative about use of safety devices 8. Include patient/ patient rental representative in decisions related to safety Outcome: [...] hygiene technique 7. Identify and instruct patient/patient rental representative in use of appropriate isolation precautionsfor identified infection/symptoms 8. Provide and discuss with patient/patient rental representative on educational MDRO sheet 9. Encourage and monitor nutritional status daily and consult store mgr if indicated 10. Implement neutropenic guidelines as needed 11. Review exposure to history of communicable disease and recent travel history on admission 12. Encourage annual influenza vaccine 13. Encourage pneumonia vaccine Outcome: Progressing Note: Evaluation of progress towards goal: Pt vitals and labs monitored, proper standard precautions for infection prevention, all insertion/surgical sites monitored for infection Problem: Knowledge Deficit Goal: Patient/patient rental representative demonstrates understanding of disease process, treatment [...] of 0 - 24 or indicated by [facility] Rehab Assessment Goal: Patient should be free from fall Description: Interventions: 1. [place] to environment 2. Hourly rounds addressing the [...] non-skid footwear 11. Teach patient and patient rental representative to maintain environment for safety and engage in all aspects of fall prevention program Outcome: Progressing Note: Evaluation of progress towards goal: Patient remains free from falls and injuries. Patient's 5 P's addressed. Patient bed is in a locked position. Patient has call light for assistance. [facility] [id number] Plan of care note* Plan of Care - Staci Dey RN - 04/23/2024 3:23 PM EDT Problem: Pain Goal: Patient goal is pain score less than 4, able to rest, and participant in treatment plan as appropriate Description: INTERVENTIONS: 1. Encourage patient or legal rental representative to report early pain and ask [...] per policy 9. Teach patient or legal rental representative interventions for comforting Outcome: Progressing Note: [...] at the bedside 7. Instruct patient/ patient rental representative about use of safety devices 8. Include patient/ patient rental representative in decisions related to safety Outcome: Progressing Note: Evaluation of progress towards goal: patient is independent and stead on feet Problem: Knowledge Deficit Goal: Patient/patient rental representative demonstrates understanding of disease process, treatment plan,medications, and discharge instructions Description: INTERVENTIONS 1. Complete learning assessment and assess knowledge base 2. Provide teaching at level of understanding 3. Provide teaching via preferred learning method(s) Note: Evaluation of progress towards goal: patient educated on importance of ambulating in the hallways [facility] [id number] Procedure note* Op Note - Tonia Manzo MD - 04/23/2024 9:02 AM EDT Bonnie-en-Y Gastric Bypass Operative Note Patient: Shira Jett : 1995 Date: 04/23/24 Preoperative diagnosis: Class 3 obesity with a BMI of 66.9 Postoperative diagnosis: same Procedure: Robotic Bonnie-en-Y Gastric Bypass Surgeon: Tonia Manzo MD Balance Assembler: Hanna Jaquez MD-Fellow Anesthesia: General Endotracheal Intra-operative [...] this fire was done then a 32 Dutch VisiGi 3D orogastric tube was guided along [...] brought up to the pouch in an [place] loop technique and reached the pouch without [...] Prior to completing the stoma, the 32 Dutch tube was advanced from the pouch into [...] as the Bonnie limb and then a pctc-iw-arro stapled jejunojejunostomy was completed using a 60 [...] in satisfactory condition. TONIA MANZO MD 04/23/24 [facility]08-14-2024 Attending History and physical note* Tonia Manzo MD - 04/23/2024 8:43 AM EDT HISTORY AND PHYSICAL INTERVAL NOTE: Shira Jett 1995 [id number] H&P reviewed. The patient was examined and there are no changes to the H&P. TONIA MANZO MD Source Note - Brenda Hubbard APRN-RN RECRUITMENT - 04/15/2024 8:30 AM EDT PRE-ADMISSION TESTING HISTORY AND PHYSICAL EXAM DATE: 04/15/24 PCP: Riddhi Plata MD HISTORY OF PRESENT ILLNESS: Shira Jett, a 29 y.o. White or female, presents to [facility] for a pre-surgical H&P.The patient has [...] syndrome) Pneumonia Preeclampsia, severe 11/23/2018 Pulmonary embolism ([facility]) Shortness of breath Visual impairment stigmatism [...] the most recent lab values available in [facility] at the time ofthe office visit and additional labs may have been drawn since that time. ASSESSMENT / DIAGNOSIS: MORBID OBESITY/HYPERTENSION PLAN: Shira Jett is scheduled for Davinci Bypass Gastric Bonnie En Y on 04/23/[address] Manzo. Brenda Hubbard APRN-DEREK 04/15/24 1001 Brenda Hubbard APRN-DEREK 04/23/24 0843 [facility] e(ye)BRAIN [id number] History and physical note* Tonia Manzo MD - 04/23/2024 8:43 AM EDT HISTORY AND PHYSICAL INTERVAL NOTE: Shira Jett 1995 [id number] H&P reviewed. The patient was examined and there are no changes to the H&P. TONIA MANZO MD Source Note - Brenda Hubbard, MASCARA MOLDER-RN RECRUITMENT - 04/15/2024 8:30 AM EDT PRE-ADMISSION TESTING HISTORY AND PHYSICAL EXAM DATE: 04/15/24 PCP: Riddhi Plata MD HISTORY OF PRESENT ILLNESS: Shira Jett, a 29 y.o. White or female, presents to [facility] for a pre-surgical H&P.The patient has [...] syndrome) Pneumonia Preeclampsia, severe 11/23/2018 Pulmonary embolism ([facility]) Shortness of breath Visual impairment stigmatism [...] the most recent lab values available in [facility] at the time ofthe office visit and additional labs may have been drawn since that time. ASSESSMENT / DIAGNOSIS: MORBID OBESITY/HYPERTENSION PLAN: Shira Jett is scheduled for Davinci Bypass Gastric Bonnie En Y on 04/23/[address] Manzo. Brenda Hubbard APRN-DEREK 04/15/24 1001 MARCEL Louis 04/23/24 0843 documented in this encounterMount Carmel Health System08-08-2024 Miscellaneous Notes* Telephone Encounter - Nilam Stallworth RN - 04/17/2024 1:49 PM EDT Patient contacted office. Needs RX for colace resent to [facility]. documented in this encounterMount Carmel Health System08-08-2024 Telephone encounter Note* Telephone Encounter - Nilam Stallworth RN - 04/17/2024 1:49 PM EDT Patient contacted office. Needs RX for colace resent to [facility]. [facility] History of Present illness Narrative* [...] and symptoms of complications to report. 3. [id number] steps to weight loss surgery. 4. Instructed to bring [facility] appointments. 5. Explained [...] by Page Huang RN. documented in this [facility]08-06-2024 Instructions* Patient Instructions* Nilam Stallworth RN - 04/15/2024 2:00 PM EDT Preoperative Bariatric Surgery Educational Class documented in this [facility]08-06-2024 History of Present illness Narrative* Nilam Stallworth RN - 04/15/2024 1:23 PM EDT Pre op CXR entered. documented in this encounterMount Carmel Health System08-06-2024 History and physical note* Brenda Hubbard, MAC-RN RECRUITMENT - 04/15/2024 8:30 AM EDT PRE-ADMISSION TESTING HISTORY AND PHYSICAL EXAM DATE: 04/15/24 PCP: Riddhi Plata MD HISTORY OF PRESENT ILLNESS: Shira Jett, a 29 y.o. White or female, presents to [facility] for a pre-surgical H&P.The patient has [...] syndrome) Pneumonia Preeclampsia, severe 11/23/2018 Pulmonary embolism ([facility]) Shortness of breath Visual impairment stigmatism [...] the most recent lab values available in [facility] at the time ofthe office visit and additional labs may have been drawn since that time. ASSESSMENT / DIAGNOSIS: MORBID OBESITY/HYPERTENSION PLAN: Shira Jett is scheduled for Davinci Bypass Gastric Bonnie En Y on 04/23/[address] Manzo. MARCEL Louis 04/15/24 1001 [employer] Work Phone: 1(258) 201-837008-06-2024 History and physical note* MARCEL Louis - 04/15/2024 8:30 AM EDT PRE-ADMISSION TESTING HISTORY AND PHYSICAL EXAM DATE: 04/15/24 PCP: Riddhi Plata MD HISTORY OF PRESENT ILLNESS: Shira Jett, a 29 y.o. White or female, presents to [facility] for a pre-surgical H&P.The patient has [...] syndrome) Pneumonia Preeclampsia, severe 11/23/2018 Pulmonary embolism ([facility]) Shortness of breath Visual impairment stigmatism [...] the most recent lab values available in [facility] at the time ofthe office visit and additional labs may have been drawn since that time. ASSESSMENT / DIAGNOSIS: MORBID OBESITY/HYPERTENSION PLAN: Shira Jett is scheduled for Davinci Bypass Gastric Bonnie En Y on 04/23/[address] Manzo. MARCEL Louis 04/15/24 1001 documented in this encounterMount Carmel Health System08-06-2024 Instructions* Patient Instructions* Melanie Garcia RN - 04/15/2024 8:30 AM EDT Your surgery/procedure is scheduled at [facility] on at 9:30 am Arrival Time 7:30 am [facility] Address: [address] [place] [address] in P1 Parking lot located on [facility]. Report to the Entrance B. Check in at the information desk the surgery. The waiting room located on the second floor. If you have any questions prior to surgery, please call Pre-Admission Clinic at [phone] between 7:30 am and 4:30 pm Sunday through Sunday. If you have questions the morning of surgery, please call the Pre-op Department at [phone]. Notify your SURGEON if you develop any [...] piercings ,hair extensions that contain metal, nail sinhala, make-up, and contact lens. You may brush [...] RIGHTS AND RESPONSIBILITIES As a patient at [facility], you have the right to: Receive medical care and be informed of who is taking care of you Be treated with dignity and respect Have a family member/rental representative of choice and your physician notified of your admission Receive information and actively participate in decisions about your care and treatment Refuse care, treatment and services Decide who may provide your support and speak for you Access yazidi and spiritual services Participate in ethical issues [...] of hospital charges and payment methods Patient/patient rental representative responsibilities are to: Provide information about [...] surgery in clean clothes. documented in this encounterMount Carmel Health System07-18-2024 History of Present illness Narrative* [...] week post operative visit documented in this encounterMount Carmel Health System07-08-2024 History of Present illness Narrative* Cr Venegas [...] apnea Pneumonia Preeclampsia, severe 11/23/2018 Pulmonary embolism ([facility]) Shortness of breath No data recorded No [...] (11/29/2021) Received from [facility] Overall Financial Resource Strain (CARDIA) Difficulty [...] Referring Physician: Riddhi Plata MD [address] [place] [address] documented in this encounterMount Carmel Health System07-03-2024 Miscellaneous Notes* Telephone Encounter - Anne Ruiz CMA - 03/12/2024 9:12 AM EDT Called patient to remind them to bring their most current copy of their medication list with them to their appt. Patient verbalizes understanding. documented in this encounterMount Carmel Health System07-03-2024 Telephone encounter Note* Telephone Encounter - Anne Ruiz CMA - 03/12/2024 9:12 AM EDT Called patient to remind them to bring their most current copy of their medication list with them to their appt. Patient verbalizes understanding. [facility] e(ye)BRAIN [id number] History of Present illness Narrative* Jenny Moise [...] meals on protein. Discussed healthier [facility]. Bariatric Medical Nutrition Therapy Goal Summary Eat [...] never (Ran out but will get more [employer] vitamins) Sip liquids. Drink 64 ounces/day.: 100% [...] all discussed has been provided within the [facility] Bariatric Guide. My contact name and number provided if questions or concerns arise. Nutrition Monitoring: To follow up in 1 month to show progress towards goals. Start time: 1316 End time: 1329 documented in this encounterDunlap Memorial HospitalNiko Niko [id number] Instructions* Patient Instructions* Jenny Moise RD - 03/06/2024 1:30 PM EDT Read the [facility] Bariatric Guide. If you re looking for general health and wellness resources, please visit [employer]otechformerly mercy hospital [email or web address]. documented in this encounterDunlap Memorial HospitalNiko Niko [id number] History of Present illness Narrative* Jenny Moise [...] Physical Activity: walking the zoo, went to [place] for vacation and [facility] and active with work Bariatric Medical [...] 1330 End time: 1348 documented in this encounterDunlap Memorial HospitalCornerstone Pharmaceuticals [facility] [id number] Instructions* Patient Instructions* Jenny Moise RD - 02/07/2024 1:30 PM EDT Read the [facility]ji Bariatric Guide. If you re looking for general health and wellness resources, please visit [employer] [email or web address]. documented in this encounterDunlap Memorial HospitalCornerstone Pharmaceuticals [facility] HospitalEpootf08-85-5506 History of Present illness Narrative* Jenny Moise [...] Recall: Breakfast Snack Lunch Snack Dinner Snack Neligh with cheese and low fat sour cream Neligh cheese and low fat sour cream Neligh cheese and low fat sour cream Beverage [...] 1208 End time: 1219 documented in this encounterDunlap Memorial HospitalNiko Niko [id number] Instructions* Patient Instructions* Jenny Moise RD - 01/02/2024 12:30 PM EDT Read the [facility] Bariatric Guide. If you re looking for general health and wellness resources, please visit [employer] [email or web address]. documented in this encounterMount Carmel Health System03-27-2024 History of Present illness Narrative* Aby Davey - 12/05/2023 1:55 PM EDT Patient visited the Food [facility] and received food on 12/05/23. Provided one time food bag today. Patient needs a referral. Aby Davey [facility] documented in this encounterMount Carmel Health System03-27-2024 History of Present illness Narrative* Jenny Moise, [...] his job, so she started working with [employer] and [employer]. She finds this has really increased her daily activity. She is drinking just water. But with lack of funds shehas been using up foods in her house. She has applied for food stamps and hopes to get that soon. She has not tried food vega as the ones in her area only give starches. [facility]. Bariatric Medical Nutrition Therapy Goal [...] 1332 End time: 1355 documented in this encounterDunlap Memorial HospitalNiko Niko [id number] Instructions* Patient Instructions* Jenny Moise RD - 12/05/2023 1:30 PM EDT Read the [facility] Bariatric Guide. If you re looking for general health and wellness resources, please visit Aurin [email or web address]. documented in this encounterDunlap Memorial HospitalNiko Niko [id number] History of Present illness Narrative* Jenny Moise [...] all discussed has been provided within the [facility] Bariatric Guide. My contact name and number provided if questions or concerns arise. Nutrition Monitoring: To follow up in 1 month to show progress towards goals. Start time: 1122 End time: 1138 documented in this encounterMount Carmel Health System02-29-2024 Instructions* Patient Instructions* Jenny Moise RD - 11/08/2023 11:30 AM EST Read the [facility] B[facility]ric Guide. If you re looking for general health and wellness resources, please visit mor[facility] county [email or web address]. documented in this encounterMount Carmel Health System02-16-2024 Evaluation note* Diagnosis PONV (postoperative nausea and vomiting)- Primary Nausea with vomiting Unable to assess patient's smoking status within the last 12 months Constipation, unspecified constipation type Vitamin D deficiency Chronic RUQ pain Abdominal pain, right upper quadrant documented in this encounter [facility]01-[facility]-2024 History of Present illness Narrative* [...] Patient presents with New Patient pre op fish seiner-ref from Tonia Manzo MD for pre op [...] apnea Pneumonia Preeclampsia, severe 11/23/2018 Pulmonary embolism ([facility]) Shortness of breath No data recorded No [...] Referring Physician: Tonia Manzo MD [address] [facility] [place] [address] documented in this encounterMount Carmel Health System01-30-2024 History of Present illness Narrative* Jenny Moise, [...] 1045 End time: 1108 documented in this encounterDunlap Memorial HospitalGeoPalz01-30-2024 Instructions* Patient Instructions* Jenny Moise RD - 10/09/2023 11:00 AM EST Read the [facility] Bariatric Guide. If you re looking for general health and wellness resources, please visit Aurin [email or web address]. documented in this encounterDunlap Memorial Hospitalca [facility] [id number] Miscellaneous Notes* Telephone Encounter - Anne Ruiz CMA - 10/09/2023 10:27 AM EST Called patient to remind them to bring their most current copy of their medication list with them to their appt. Patient verbalizes understanding. documented in this encounterMount Carmel Health System01-30-2024 Telephone encounter Note* Telephone Encounter - Anne Ruiz CMA - 10/09/2023 10:27 AM EST Called patient to remind them to bring their most current copy of their medication list with them to their appt. Patient verbalizes understanding. [facility] History of Present illness Narrative* NEIL Mcgowan - 09/27/2023 11:45 AM EST Images from the original note were not included. * Jalyn Vidal DO - 09/27/2023 11:45 AM EST [facility] Pulmonary And Sleep Progress Note [...] Meds Medications Reviewed. Dr. Jalyn Vidal DO. [facility] Physicians Pulmonary & Critical Care Office: [phone] documented in this encounterMount Carmel Health System12-28-2023 History of Present illness Narrative* Jenny Moise RD - 09/06/2023 11:00 AM EST Bariatric [...] Busters: wings and fries Beverage Intake: crystal Mary mack Physical Activity: walking with shopping almost daily, [...] 1100 End time: 1119 documented in this encounterMount Carmel Health System12-28-2023 Instructions* Patient Instructions* Jenny Moise RD - 09/06/2023 11:00 AM EST Read the [facility] Bariatric Guide. If you re looking for general health and wellness resources, please visit [facility] hospitalSeaChange [email or web address]. documented in this encounterMount Carmel Health System02-24-2023 NoteOP Note OPERATION DATE: 11/03/2022 PROCEDURE: Diagnostic laparoscopy with removal of IUD. PREOPERATIVE DIAGNOSIS: Desires permanent sterilization, desires removal of IUD, multiparity. POSTOPERATIVE DIAGNOSIS: Desires permanent sterilization, desires removal of IUD, multiparity. ANESTHESIA: General. SURGEON: Bin Morales D.O. WEB SERVICES MANAGER: TIMOTEO Watson URINE OUTPUT: Yellow and clear. BLOOD LOSS: 5 mL. SPECIMEN: None. FINDINGS: Unable to perform procedure due to patient's extreme BMI and inadequate visualization. PROCEDURE: Patient was taken back to the operating room. She was given general anesthesia without difficulty. She was prepped and draped in the normal sterile fashion, placed in [facility]. The weighted speculum was placed in patient's [...] was waken up and taken to recovery.[facility] [id number] Hospital Discharge instructions* Instructions* Tonia Wolfe PA-C - 12/05/2021 Follow outpatient tomorrow with doctor or by calling [phone] or [phone]. Return to ER immediately if symptoms worsen or persist. * Attachments The following attachments cannot be sent through Care Everywhere. * SOB (Shortness of Breath) (Beninese) documented in this [facility] hospitalB[facility] Phone: 1(235) 234-550603-24-2022 History of Present illness Narrative* Sonu Morales - 12/01/2021 4:13 PM EDT CLINICAL PHARMACY NOTE: MEDS TO BEDS Total # of Prescriptions Filled: 1 The following medications were delivered to the patient: xarelto starter pack Additional Documentation: * Camelia Medina MD - 12/01/2021 8:44 AM EDT Images from the original note were not included. [facility] Office: [phone] Cem Jenkins DO, Cyrus Cannon DO, Dave [...] Mclaughlin MD, Antonio Burr MD, Nevaeh Wisdom, RN RECRUITMENT, Violet Mojica, RN RECRUITMENT, Ysabel Steen, RN RECRUITMENT, Jami Heard, DECATING MACHINE OPERATOR, Timothy Hill, RN RECRUITMENT, Tayler Watts, RN RECRUITMENT, Grecia Chavez, RN RECRUITMENT, Shira Payne, RN RECRUITMENT, Sergio Steiner, RN RECRUITMENT, Alok Reese PA-C, Nilam Valdes, CORNELL, Oriana Montero, CORNELL, Krystina Gil, DEREK, Georgina Dale, RN RECRUITMENT, Stacy Velazquez, RN RECRUITMENT [facility] IN-PATIENT SERVICE [facility] Progress Note 12/01/2021 8:44 AM Name: Shira Leone Acct: [id number] Room: Day: 1 Admit Date: 11/30/2021 7:38 [...] Brief History: 26-year-old female recently delivered at [facility] around 11/24/2021 was transferred to [facility] for blood pressure management due to [...] in this interval not displayed. Recent Labs 11/30/21202012/01/2135712/01/21 0414 PROT 6.9 6.3* -- LABALBU 3.7 3.4* -- TSH -- 2.20 -- AST 15 16 -- ALT 31 28 -- LDH 171 -- -- ALKPHOS 102 93 -- BILITOT 0.21* 0.18* -- URICACID 8.0* -- -- POCGLU -- -- 91 ABG:No results found for: POCPH, PHART, PH, POCPCO2, OYT2KFG, PCO2, POCPO2, PO2ART, PO2, POCHCO3, FEG1QQA, HCO3, NBEA, PBEA, BEART, BE, THGBART, THB, WQB1DCJ, WQOD7WAN, X0NPCBGT, O2SAT, FIO2 No results found for: SPECIAL [...] were called by Dr. Ernie Gamino to RN RECRUITMENT Bandar Phanel on 11/30/2021 at 10:54 p.m. [...] DVTs requiring what appears to be a [place] filter in place. Due to insurance patient [...] Vitals obtained. Orders released. documented in this [facility] Phone: 1(997) 832-585903-24-2022 Hospital Discharge instructions* Discharge Instr - Activity* [...] most local grocery stores, pharmacies, and chain [employer]-stores. If you have any questions about your diet or nutrition, call the hospital and ask for the dietitian. * Attachments The following attachments cannot be sent through Care Everywhere. * Pulmonary Embolism (Beninese) * rivaroxaban (Beninese) * Blood Clots: Inpatient: Quick List (Beninese) * Blood Clots and : General Info (Beninese) documented in this encounterLUVHAN Work Phone: 1(846) 540-621103-22-2022 History of Present illness Narrative* Milana Luong [...] patient Attending Physician: Dr. Reji Flores DO Abalone Processor Resident 11/29/2021, 2:15 AM * Adeola Gupta [...] patient Attending Physician: Dr. Candy Flores DO Abalone Processor Resident 11/28/2021, 4:22 AM Date: 11/28/2021 Time: 7:32 PM Patient Name: Shira Leone Patient : 1995 Room/Bed: [address] [place] [address] Admission Date/Time: 11/26/2021 2:06 AM Attending Physician [...] needed. Hopefully DC home tomorrow. Attending's Name: ADEOAL GUPTA DO * Isidro Chester DO - [...] patient Attending Physician: Dr. Mauricio Moore DO Abalone Processor Resident 11/27/2021, 6:13 AM Attending Physician Statement [...] CREATININE 0.43* 0.32* GLUCOSE 101* 98 ASSESSMENT/PLAN Sihra Leone is a 26 y.o. female PPD# [...] Continue to monitor closely Brandie Moore DO Abalone Processor Resident 11/26/2021, 7:15 PM * Brandie Moore, DO - 11/26/2021 3:09 PM EDT Resident [...] Continue to monitor closely Brandie Moore DO Abalone Processor Resident 11/26/2021, 3:10 PM * Juliana Leyva [...] - Continue to monitor Juliana Leyva DO Abalone Processor Resident 11/26/2021, 10:02 AM * Jenifer Maki DO - 11/26/2021 8:51 AM EDT Obstetric/Gynecology Resident Interval Note Notified by RN of severe range blood pressures. Will treat with IV labetalol 20 mg and add Procardia 30 mg XL. Jenifer Maki DO DIESEL ENGINE ERECTOR Resident, PGY3 [place], [place] 11/26/2021, 8:51 AM * Juany Salmeron [...] ALT/AST 44/29>44.26, P/C 0.35 Juany Salmeron DO Abalone Processor Resident 11/26/2021, 6:54 AM documented in this [facility] Phone: 1(434) 539-715503-21-2022 Hospital Discharge instructions* Instructions* Mich Duran DO [...] you have had preeclampsia, you have a pwqoik-utsc-emsfxgg risk of heart disease, stroke, and kidney [...] Where can you learn more? Go to [email or web address] and sign in to your [employer] account. Enter Q718 in the Search Health Information box to learn more about Learning About Preeclampsia After Childbirth. If you do not have an account, please click on the Sign Up Now link. Current as of: February 23, 2021 Content Version: 13. [email or web address]. Care instructions adapted under license by [employer]. If you have questions about a medical condition or this instruction, always ask your healthcare professional. [email or web address] disclaims any warranty or liability for your use of this information. documented in this encounterBizible Phone: evaluation note* Diagnosis Preeclampsia in period- Primary documented in this encounter [employer] Phone: evaluation note* Diagnosis Hx PP Pre E w/ SF- Primary Anemia Anemia, unspecified Depression/Anxiety Depressive disorder, not elsewhere classified Hx GDM Abnormal maternal glucose tolerance, complicating , childbirth, or the puerperium, unspecified as to episode of care FHx DM documented in this encounter [employer] Phone: evaluation note* Diagnosis Acute pulmonary embolism, unspecified pulmonary embolism type, unspecified whether acute cor pulmonale present ([facility]) Class 3 severe obesity due to excess calories with serious comorbidity and body mass index (BMI) of50.0 to 59.9 in adult ([facility]) Thyroid nodule Nontoxic uninodular goiter documented in this encounter [employer] Phone: [email or web address] note* Diagnosis Shortness of breath- Primary documented in this encounter [employer] Phone: [email or web address] note* Diagnosis Acute cystitis with hematuria- Primary Dysuria documented in this encounter [facility] HealthcareEvaluation note* Diagnosis Non-recurrent acute serous otitis media of left ear- Primary Bariatric surgery status Vitamin D deficiency Iron deficiency anemia, unspecified iron deficiency anemia type documented in this encounter [facility] HealthcareEvaluation note* Diagnosis Influenza A- Primary Influenza with other respiratory manifestations Fever, unspecified fever cause documented in this encounter [facility] HealthcareEvaluation note* Diagnosis Pre-bariatric surgery nutrition evaluation- Primary Morbid obesity ([facility]) Morbid [facility] Diagnosis Pre-bariatric surgery nutrition evaluation- Primary Morbid obesity ([facility]) Morbid [facility] Diagnosis Preop testing- Primary Unspecified pre-operative examination [facility] Diagnosis Mild intermittent asthma, unspecified whether complicated- Primary LUCIANO on CPAP [facility]* Diagnosis Pre-bariatric surgery nutrition evaluation- Primary Morbid obesity ([facility]) Morbid obesity [facility] Diagnosis Preop testing- Primary Unspecified pre-operative examination LUCIANO on CPAP History of pulmonary embolism Personal history of venous thrombosis and embolism Class 2 severe obesity due to excess calories with serious comorbidity in adult, unspecified BMI ([facility]) Essential hypertension Unspecified essential hypertension [facility] Diagnosis Pre-bariatric surgery nutrition evaluation- Primary Morbid obesity ([facility]) Morbid obesity documented [facility]* Diagnosis Pre-bariatric surgery nutrition evaluation- Primary Morbid obesity ([facility]) Morbid obesity documented in this encounter [facility]* Diagnosis Preop cardiovascular exam- Primary Pre-operative cardiovascular examination documented in this encounter [facility]* Diagnosis Preop testing- Primary Unspecified pre-operative examination documented in this encounter [facility]* Diagnosis Pre-op testing- Primary Unspecified pre-operative examination documented in this encounter [facility]* Diagnosis Constipation, unspecified constipation type- Primary documented in this encounter [facility]* Diagnosis Class 3 severe obesity with body mass index (BMI) of 60.0 to 69.9 in adult ([facility])- Primary Class 3 severe obesity due to excess calories with serious comorbidity and body mass index (BMI) of60.0 to 69.9 in adult ([facility]) History of pulmonary embolism Personal history of venous thrombosis and embolism Acute post-operative pain documented in this encounter [facility]* Diagnosis Dietary counseling and surveillance- Primary Morbid obesity ([facility]) Morbid obesity Malnutrition following gastrointestinal surgery Other and unspecified postsurgical nonabsorption Postsurgical malabsorption documented in this encounter [facility]* Diagnosis LUCIANO on CPAP- Primary H/O gastric bypass Postoperative malabsorption Malnutrition following gastrointestinal surgery Other and unspecified postsurgical nonabsorption documented in this encounter [facility]* Diagnosis Morbid obesity with BMI of 60.0-69.9, adult ([facility])- Primary Dietary counseling and surveillance- Primary Malnutrition following gastrointestinal surgery Other and unspecified postsurgical nonabsorption Postsurgical malabsorption H/O gastric bypass documented in this encounter [facility]* Diagnosis Dietary counseling and surveillance- Primary Malnutrition following gastrointestinal surgery Other and unspecified postsurgical nonabsorption Postsurgical malabsorption H/O gastric bypass documented in this encounter [facility]* Diagnosis Malnutrition following gastrointestinal surgery- Primary Other and unspecified postsurgical nonabsorption Postsurgical malabsorption H/O gastric bypass B12 deficiency documented in this encounter [facility]* Diagnosis Malnutrition following gastrointestinal surgery- Primary Other and unspecified postsurgical nonabsorption Postsurgical malabsorption H/O gastric bypass History of anemia Personal history of diseases of blood and blood-forming organs [facility] Diagnosis History of Bonnie-en-Y gastric bypass- Primary Postsurgical malabsorption Malnutrition following gastrointestinal surgery Other and unspecified postsurgical nonabsorption History of anemia Personal history of diseases of blood and blood-forming organs B12 deficiency [facility]* Diagnosis Missed menses , unspecified gestational age ([facility]) Encounter for supervision of normal first in first trimester ([facility]) Nausea Nausea alone documented in this encounter [facility]* Diagnosis Second trimester ([facility]) state, incidental 14 weeks gestation of ([facility]) Primary hypertension Unspecified essential hypertension H/O gastric bypass History of diet controlled gestational diabetes mellitus (GDM) Diabetes mellitus screening Screening for diabetes mellitus documented in this encounter [facility] HealthcareEvaluation note* Diagnosis Well woman exam with routine gynecological exam Routine gynecological examination Screening, , for anatomic survey ([facility]) Encounter for anatomic survey Second trimester ([facility]) state, incidental 17 weeks gestation of ([facility]) Vaginal discharge Leukorrhea, not specified as infective STD exposure documented in this encounter [facility] HealthcareEvaluation note* Diagnosis Anxiety Anxiety state, unspecified documented in this encounter [facility]* Diagnosis History of maternal pulmonary embolus- Primary Personal history of venous thrombosis and embolism 20 weeks gestation of Chronic hypertension affecting History of pre-eclampsia in prior , currently in second trimester History of gestational diabetes in prior , currently in second trimester History of prediabetes Bariatric surgery status complicating , second trimester Severe obesity due to excess calories affecting , antepartum ([facility]) Obstructive sleep apnea Obstructive sleep apnea (adult) (pediatric) History of gestational diabetes in prior , currently with other poor obstetric history Depression affecting Anxiety disorder affecting , antepartum [facility] Diagnosis 20 weeks gestation of - Primary Chronic hypertension affecting History of pre-eclampsia in prior , currently in second trimester History of gestational diabetes in prior , currently in second trimester History of prediabetes Bariatric surgery status complicating , second trimester Severe obesity due to excess calories affecting , antepartum ([facility]) History of maternal pulmonary embolus Personal history of venous thrombosis and embolism Obstructive sleep apnea Obstructive sleep apnea (adult) (pediatric) History of gestational diabetes in prior , currently with other poor obstetric history Depression affecting Anxiety disorder affecting , antepartum documented in this encounter [facility]* Diagnosis History of Bonnie-en-Y gastric bypass Postsurgical malabsorption Malnutrition following gastrointestinal surgery Other and unspecified postsurgical nonabsorption Folate deficiency Other B-complex deficiencies Iron deficiency Disorders of iron metabolism documented in this encounter [facility]* Diagnosis 21 weeks gestation of ([facility]) Well woman exam Routine general medical examination at a health care facility Second trimester ([facility]) state, incidental Screen for STD (sexually transmitted disease) Screening examination for venereal disease Well woman exam with routine gynecological exam Routine gynecological examination Diabetes mellitus screening Screening for diabetes mellitus Iron deficiency anemia, unspecified iron deficiency anemia type documented in this encounter [facility]Evaluation [facility]* Diagnosis Gallstones and inflammation of gallbladder without obstruction- Primary Calculus of gallbladder with acute cholecystitis, without mention of obstruction Second trimester ([facility]) state, incidental 23 weeks gestation of ([facility]) History of diet controlled gestational diabetes mellitus (GDM) Preeclampsia in period ([facility]) History of pulmonary embolism Personal history of venous thrombosis and embolism Primary hypertension Unspecified essential hypertension Diabetes mellitus screening Screening for diabetes mellitus documented in this encounter [facility] HealthcareEvaluation note* Diagnosis History of gestational diabetes in prior , currently in second trimester- Primary History of prediabetes History of gestational diabetes in prior , currently with other poor obstetric history documented [facility] encounter [facility] Discharge instructionsNot on filedocumented in this encounterProMed[facility] SystemInstructionsNot on filedocumented in this encounterProMed[facility] Health SystemInstructionsNot on filedocumented in this encounterProMedica Health SystemInstructionsNot on filedocumented in this encounterProMediva Health SystemInstructionsNot on filedocumented in this encounterProMediva Health SystemInstructionsNot on filedocumented in this encounterPro[facility] SystemInstructionsNot on filedocumented in this encounterPro[facility] SystemInstructionsNot on filedocumented in this encounterProMedica Health SystemInstructionsNot on filedocumented in this encounterProMedica Health SystemInstructionsNot on filedocumented in this encounterProMedica Health SystemInstructionsNot on filedocumented in this encounterProMedica Health SystemInstructionsNot on filedocumented in this encounterProMedica Health SystemInstructionsNot on filedocumented in this encounterProMedica Health SystemInstructionsNot on filedocumented in this encounterProMedica Health SystemInstructionsNot on filedocumented in this encounterProMedica Health SystemInstructionsNot on filedocumented in this encounterProCorey Hospital[facility] Health SystemInstructionsNot on filedocumented in this encounterProCincinnati [facility] SystemReason for visit Narrative* Consultation (Routine) - Pending ReviewSpecialtyDiagnoses / ProceduresReferred By Contact Referred To ContactNutrition Diagnoses Morbid obesity ([facility]) Pre-bariatric surgery nutrition evaluation Preop testing Tonia Manzo MD [address] [place] [address] Referral IDStatusReasonStart DateExpiration DateVisits RequestedVisits [id number] Review Specialty Services Required [facility] for [facility] Narrative* Consultation (Routine) - Pending ReviewSpecialtyDiagnoses / ProceduresReferred By ContactReferred To ContactNutrition Diagnoses Malnutrition following gastrointestinal surgery Postsurgical malabsorption Tonia Manzo MD [address] [facility] [place] [address] Referral IDStatusReasonStart DateExpiration DateVisits RequestedVisits [id number] Review Specialty Services Required [facility] Summary Purpose Family History No [...] InactivatedCommentsFull Code11/24/2018 10:44 PM11/27/2018 4:48 PMDate ActivatedDate CvohtlimimjJdpeudvt82/20/2022 11:42 PM07/31/2022 2:48 PMDate ActivatedDate InactivatedComments11/24/2018 10:44 [...] Contact Procedures Discharge Follow-Up Moriah Guthrie PA-C [address] [place] [address] Referral IDStatusReasonStart DateExpiration DateVisits RequestedVisits [id number] / ProceduresReferred By ContactReferred To Contact Procedures No dressing needed Moriah Guthrie PA-C [address] [address] Referral IDStatusReasonStart DateExpiration DateVisits RequestedVisits [id number] [id number] / ProceduresReferred By ContactReferred To Contact Procedures Hygiene Moriah Guthrie PA-C [address] [address] Referral IDStatusReasonStart DateExpiration DateVisits RequestedVisits [id number] [id number] / ProceduresReferred By ContactReferred To Contact Procedures Adult diet Moriah Guthrie PA-C [address] [address] Referral IDStatusReasonStart DateExpiration DateVisits RequestedVisits [id number] Review Additional Source Comments INFORMATION SOURCE (unrecogn ized section and content) DATE CREATED AUTHOR 01/10/2019 [facility] DATE CREATED AUTHOR AUTHOR'S ORGANIZ ATION 12/06/2021 [facility] DATE CREATED AUTHOR AUTHOR'S ORGANIZ ATION 01/16/2022 [facility] DATE CREATED AUTHOR AUTHOR'S ORGANIZ ATION 11/16/2022 [facility] DATE CREATED AUTHOR AUTHOR'S ORGANIZ ATION 09/30/2023 [facility] DATE CREATED AUTHOR AUTHOR'S ORGANIZ ATION 06/12/2025 [facility] DATE CREATED AUTHOR AUTHOR'S ORGANIZ ATION 06/24/2025 [facility] DATE CREATED AUTHOR AUTHOR'S ORGANIZ ATION 06/26/2025 [facility] Reason for Visit (unrecogniz ed section and content) ReasonCommentsChest Painpressure in center of chest. gave on 11/21/21. Hypertensionon 200 mg labetalol daily.ReasonCommentsHypertensionSpecialty Diagnoses / ProceduresReferred By ContactReferred To Contact Diagnoses Preeclampsia in period Isidro Chester DO [address] [address] [facility] [id number] [place] [address] Referral IDStat[facility] DateExpiration DateVisits RequestedVisits [id number] Painonset this morning, was admitted for preeclampsiaShortness of BreathSpecialtyDiagnoses / ProceduresReferred By ContactReferred To Contact Diagnoses Right pulmonary embolus (HCC) Acute pulmonary embolism, unspecified pulmonary embolism type, unspecified whether acute cor pulmonale present (HCC) Camelia Medina MD [address] [place] [address] [facility] [address] [place] [address] Referral [facility]StatusRe[facility] DateExpiration DateVisits RequestedVisits [id number] of Breathrecently dx with pulmonary embolism. 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-ref from Tonia Manzo MD for pre op for bariatric surgery-patient has no date/time/place set for surgery-never seen cardiology-no covid-no cardiac devices-echo/labs done at [facility] 07[facility]-sched wt pt SpecialtyDiagnoses / ProceduresReferred By ContactReferred To ContactCardiology Diagnoses Preop testing Tonia Manzo MD [address], [place] [address] [place] [address] [facility] [address] [place] [address] Referral IDStatusReasonStart DateExpiration DateVisits RequestedVisits [id number] Review Specialty Services Required 1Referral IDStatusReasonStart DateExpiration DateVisits RequestedVisits [id number] Specialty Services Required [id number]-sa ExamPreop Bariatric surg Dr. Shirley ReasonCommentsConsultSign consentSpecialtyDiagnoses / ProceduresReferred By ContactReferred To Contact Diagnoses MORBID OBESITY/HYPERTENSION Procedures [place] LAP GASTRIC BYPASS/BONNIE-EN-Y DAVINCI DV5 BYPASS GASTRIC BONNIE-EN Y Tonia Manzo MD [address] [facility] [place] [address] Referral IDStatusReasonStart DateExpiration DateVisits RequestedVisits [id number] DateCommentsbloody mocus4ReasonComments Post-op1 week RYGB; feels tired;40 ounces of fluids; 2 protein shakes a day, struggles with the evening protein shakeReasonCommentsPatient EducationPre op bariatric surgery education un[id number] lessonReasonComments Follow-upLATE 6 MONTH bypass Anais 04/23/2485OhycrfhowD41 INJECTIONReasonComments Routine VisitReasonCommentsMed RefillReasonCommentsHx PEHx Gastric BypassAnemiaAsthmaHx [...] 2211 (New Bag - Provider: Sabina Glover, RN) * 2223 (Stopped - Provider: Sabina Glover, RN) * 2226 (New Bag - Provider: Sabina Glover, RN) * 224 (Stopped - Provider: Sabina Glover RN) Medication Order/// calcium gluconate 10 % injection 1,000 mg 1,000 mg, IntraVENous, PRN, For suspected magnesium toxicity or for respiratory rate less than 6 per minute., Starting on Sun11/25/21 at 2142, Administer slow IV push over 5 minutes. Medication Order/// citalopram (CELEXA) tablet 10 mg 10 mg, Oral, DAILY, First dose on 11/27/21 at 0900 * 0939 (Given - Provider: Gale Saravia RN) * 0847 (Given - Provider: Liyah Asher, LEANDRO) * 0900 (Given - Provider: Nilam Montes, LEANDRO) ferrous sulfate (FE TABS 325) EC tablet 325 mg 325 mg, Oral, DAILY WITH BREAKFAST, First dose on 11/26/21 at 0800 * 0938 (Given - Provider: Gale Saravia RN) * 0847 (Given - Provider: Liyah Asher, LEANDRO) * 0759 (Given - Provider: Nilam Montes, LENADRO) hydrALAZINE (APRESOLINE) injection 10 mg (COMPLETED) 10 mg, IntraVENous, ONCE, On 11/27/21 at 2000, For 1 dose * 1938 (Given - Provider: Radha Correa RN) hydrALAZINE (APRESOLINE) injection 10 mg (COMPLETED) 10 mg, IntraVENous, ONCE, On Mon /21/22 at 0145, For 1 dose * 0129 [...] Oral, EVERY 8 HOURS, First dose on Sun11/26/21 at 0415 * 0409 (Given - Provider: [...] STAT * 1539 (Given - Provider: Liyah Asher RN) * 2157 (Given - Provider: Emma Borja, [...] Asher RN) * 0900 (Given - Provider: Nliam Montes, LEANDRO) vitamin plus iron 29-1 MG [...] RN) * 2053 (Given - Provider: Radha Correa, RN) * 0848 (Given - Provider: Liyah Asher, RN) * 2111 (Given - Provider: Emma Borja, LEANDRO) * 0902 (Given - Provider: Nilam Montes, RN) * 2100 (Due) Medication Order/ 0.9 % sodium chloride infusion 25 mL, [...] hours. * 0129 (Given - Provider: May Malone, LEANDRO) * 0815 (Given - Provider: Liyah Asher, LEANDRO) * 2111 (Given - Provider: Emma Borja, LEANDRO) * 0713 (Given - Provider: Nilam Montes, [...] chew. * 0626 (Given - Provider: May Malone, LEANDRO) * 1400 (Given - Provider: Liyah Asher, LEANDRO) melatonin [...] Administer over 1 Hours, ONCE, On Sun11/30/21 ml3422, For 1 dose * 2026 (New Bag - Provider: Casandra Maddox RN) * 2126 (Stopped - Provider: Casandra Maddox RN) 0.9 % sodium chloride bolus (COMPLETED) 80 mL (0.632 mL/kg), IntraVENous, at 80 mL/hr, Administer over 1 Hours, ONCE, On Sun11/30/21 at 2145, For 1 dose * 221 (New Bag - Provider: Juhi Yuan) * 221 (Stopped - Provider: Juhi Yuan) apixaban (ELIQUIS) [...] IV Fluid Infusing) * 2100 (Due) Medication Order heparin 25,000 units in dextrose 5% 250 [...] indication for use. Avoid grapefruit juice. * 2124 (Given - Provider: Macrina Armenta RN) * [...] for use., Indications: anxiety with depression * 2124 (Given - Provider: Macrina Armenta RN) enoxaparin (LOVENOX) syringe 40 mg 40 mg, subcutaneous, Every 12 hours scheduled, First dose on Sun04/24/24 at 0600, BMI greater than 40 Look-alike/sound-alike medication - verify indication for use. * 0613 (Given - Provider: Macrina Armenta RN) heparin (porcine) injection 5,000 [...] RN) * 1715 (Given - Provider: Staci Dey RN) * 2125 (Given - Provider: Macrina Armenta RN) * 0837 (Given - Provider: Olga Montana, LEANDRO) * 1310 (Given - Provider: Olga Montana RN) ketorolac [...] LEANDRO) * 0837 (Given - Provider: Olga Montana RN) lisinopriL [...] Bag - Provider: Olga Montana RN) Medication Order/// albuterol (PROVENTIL,VENTOLIN) nebulizer solution 2.5 [...] at noon, and at bedtime 120 tablet /rescriptionSigDispensedRefillsStart DateEnd rivaroxaban 15 & 20 MG Starter Pack Take as directed on package. 1 each apixaban starter pack (ELIQUIS DVT/PE STARTER PACK) 5 MG TBPK tablet Take 1 tablet by mouth See Admin Instructions 74 tablet Care Teams (unrecognized sec tion and content) Team MemberRelationshipSpecialtyStart DateEnd Date Riddhi Plata MD [address] [place] [facility] [place] [address] PCP - GeneralFamily Medicine01/16/23Te MemberRelationshipSpecialtyStart DateEnd Date Riddhi Plata MD [address] [place] [facility] [place] [address] PCP - GeneralFamily Medicine01/16/23Team MemberRelationshipSpecialtyStart DateEnd Date Riddhi Plata MD [address] [place] [facility] [place] [address] PCP - GeneralFamily Medicine01/16/23 MemberRelationshipSpecialtyStart DateEnd Date Riddhi Plata MD [address] [place] [facility] [place] [address] PCP - GeneralFamily Medicine01/16/23Team MemberRelationshipSpecialtyStart DateEnd Date Riddhi Plata MD [address] [place] [address] PCP - GeneralFamily Mamrpjth79/18/22Team MemberRelationshipSpecialtyStart Date End Date Riddhi Plata MD [address] [place] [address] PCP - GeneralFamily Medicine12/09/23Team MemberRelationshipSpecialtyStart DateEnd Date Riddhi Plata MD [address] [place] [address] PCP - GeneralFamily Medicine12/09/23Team MemberRelationshipSpecialtyStart DateEnd Date Riddhi Plata MD [address] [place] [address] PCP - GeneralFamily Ludjviaw54/18/22Team MemberRelationshipSpecialtyStart Date End Date Riddhi Plata MD [address] [place] [address] PCP - GeneralFamily Mvsejkyh42/18/22Team MemberRelationshipSpecialtyStart Date End Date Riddhi Plata MD [address] [place] [address] PCP - GeneralFamily Umysqzrc16/18/22Team MemberRelationshipSpecialtyStart Date End Date Riddhi Plata MD [address] [place] [address] PCP - GeneralFamily Kubfohyu69/18/22Team MemberRelationshipSpecialtyStart Date End Date Riddhi Plata MD [address] [place] [address] PCP - GeneralFamily Vinssdmu22/18/22Team MemberRelationshipSpecialtyStart Date End Date Riddhi Plata MD [address] [place] [address] PCP - GeneralFamily Medicine12/09/23Team MemberRelationshipSpecialtyStart DateEnd Date Riddhi Plata MD [address] [place] [address] PCP - GeneralFamily Medicine12/09/23Team MemberRelationshipSpecialtyStart DateEnd Date Riddhi Plata MD [address] [place] [address] PCP - GeneralFamily Medicine12/09/23Team MemberRelationshipSpecialtyStart DateEnd Date Riddhi Plata MD [address] [place] [address] PCP - GeneralFamily Medicine12/09/23Team MemberRelationshipSpecialtyStart DateEnd Date Riddhi Plata MD [address] [place] [address] PCP - GeneralFamily Miwrjuhn40/18/22Team MemberRelationshipSpecialtyStart Date End Date Riddhi Plata MD [address] [place] [address] PCP - GeneralFamily Medicine12/09/23Team MemberRelationshipSpecialtyStart DateEnd Date Riddhi Plata MD [address] [place] [address] PCP - GeneralFamily Adcxdlrc96/18/22Team MemberRelationshipSpecialtyStart Date End Date Riddhi Plata MD [address] [place] [address] PCP - GeneralFamily Medicine12/09/23Team MemberRelationshipSpecialtyStart DateEnd Date Riddhi Plata MD [address] [place] [address] PCP - GeneralFamily Medicine12/09/23Team MemberRelationshipSpecialtyStart DateEnd Date [...] DateEnd Date Riddhi Plata MD [address] [place] [facility] [place] [address] PCP - GeneralFamily Medicine01/16/23am MemberRelationshipSpecialtyStart DateEnd Date Riddhi Plata MD [address] [place] [address] PCP - GeneralFamily Medicine01/16/23Team MemberRelationshipSpecialtyStart DateEnd Date Riddhi Plata MD [address] [place] [address] PCP - GeneralFamily Medicine01/16/23Team MemberRelationshipSpecialtyStart DateEnd Date Riddhi Plata MD PCP - GeneralFamily Medicine12/09/23Team MemberRelationshipSpecialtyStart DateEnd Date Riddhi Plata MD PCP - GeneralFamily Medicine12/09/23Team MemberRelationshipSpecialtyStart DateEnd Date Riddhi Plata MD PCP - GeneralFamily Medicine12/09/23Team MemberRelationshipSpecialtyStart DateEnd Date Riddhi Plata MD [facility]12/09/23Te MemberRelationshipSpecialtyStart DateEnd Date Riddhi Plata MD [address] [facility] [place] [address] [facility]01/16/23Te MemberRelationshipSpecialtyStart DateEnd Date Riddhi Plata MD [address] [place] [facility] [place] [address] [facility]01/16/23Te MemberRelationshipSpecialtyStart DateEnd Date Riddhi Plata MD [facility]12/09/23Te MemberRelationshipSpecialtyStart DateEnd Date Riddhi Plata MD [address] [place] [facility] [place] [address] [facility]01/16/23Te MemberRelationshipSpecialtyStart DateEnd Date Riddhi Plata MD [facility]12/09/23 FOR RECORDS PERTAINING TO PATIENTS WHO ARE [...] BE BASED ON THE PRIMARY CLINICAL RECORDS. [employer] [facility]. provides no warranty or guarantee of the accuracy or completeness of information in this document.
[2025-07-08 10:04] LABS: Hematocrit 31.3 % (36.0-48.0); Hemoglobin 10.4 g/dL (12.0-16.0); Immature Granulocytes Abs Auto 0.06 10^3/uL (0.00-0.03); Immature Granulocytes Pct Auto 0.5 % (0.0-0.5); Lymphocytes Absolute Auto 2.8 10^3/uL (1.2-3.8); Mean Corpuscular HGB Conc 33.2 g/dL (29.9-35.2); Mean Corpuscular Hemoglobin 30.6 pg (26.7-34.0); Mean Corpuscular Volume 92.1 fL (81.0-99.0); Platelet Count 265 10^3/uL (150-450); Red Blood Count 3.40 10^6/uL (4.20-5.40); White Blood Count 11.5 10^3/uL (4.0-11.0)
[2025-07-08 11:32] LABS: Alanine Aminotransferase 16 U/L (14-59); Albumin Globulin Ratio 0.8; Albumin Level 2.9 g/dL (3.4-5.0); Alkaline Phosphatase 74 U/L (46-116); Aspartate Amino Transferase 8 U/L (15-37); Globulin 3.7 g/dL; Thyroid Stimulating Hormone 2.180 uIU/mL (0.358-3.740); Total Protein 6.6 g/dL (6.4-8.2)
== END 2025-07-08 09:22 | disposition home or self-care (01) ==
LOC: LAB 09:23
PROVIDERS: PCP Family Medicine; Visit Provider Physician Assistant
DX: L29.9 Pruritus, unspecified (principal)
CPT/HCPCS: 36415; 80076; 82239; 84443; 85025; 86803

== ENCOUNTER 2025-08-21 11:06 | Outpatient (OUT) | payer OTHER, SELFPAY ==
[2025-08-21 11:15] VITALS: BP 95/52; PULSE 82
== END 2025-08-21 12:16 | disposition home or self-care (01) ==
LOC: FBCO 11:08 → FBC 11:12
PROVIDERS: PCP Family Medicine; Visit Provider Obstetrics & Gynecology
DX: O24.419 Gestational diabetes mellitus in pregnancy, unspecified control (principal); Z3A.32 32 weeks gestation of pregnancy
CPT/HCPCS: 59025

== ENCOUNTER 2025-08-25 10:56 | Outpatient (OUT) | payer OTHER, SELFPAY ==
--- OUTSIDE RECORDS SUMMARY | 2025-08-11 08:40 | XMS_ITS | Encounter Summary ---
Author Organization [facility] Address [address] [place] [address] Care Team Providers Care Security Shift Supervisor Name Role Phone Riddhi Plata MD Primary Care Provider [phone] Reason for Visit * ReasonCommentsRoutine Visit Encounter Details DateTypeDepartmentCare Team (Latest Contact Info)Anpklncgabf85/02/2025 8:40 AM ESTRoutine [facility] [address] [place] [address] Bin Morales DO [address] [place], [place] [id number] 30 weeks gestation of ([facility]); Third trimester ([facility]); History of diet controlled gestational diabetes mellitus (GDM); Preeclampsia in period ([facility]); History of pulmonary embolism; Primary hypertension Social History Tobacco UseTypesPacks/DayYears UsedDateSmoking Tobacco: NeverSmokeless Tobacco: NeverAlcohol UseStandard Drinks/WeekCommentsNever0 (1 standard drink = 0.6 oz pure alcohol)Caffeine intake: 1-2 cups per day coffeeEstimated Date of OlvokdrbHlqwpvmhLgp03/06/2026ased on last menstrual period of 01/09/2025Sex and Gender InformationValueDate RecordedSex Assigned at BirthNot on fileLegal Sex Vsmuvt1411/22/2022 9:44 PM EDTGender IdentityNot on fileSexual OrientationNot on filedocumented as of this encounter Last Filed Vital Signs Vital SignReadingTime TakenCommentsBlood Iavdjwir424/6008/11/2025 9:02 AM EST Pulse--Temperature--Respiratory Rate--Oxygen Saturation--Inhaled Oxygen Concentration--Okdvlk047 kg (235 lb 12.8 oz)08/11/2025 9:02 AM ESTHeight--Body Mass Index44.5501 3:32 PM ESTdocumented in this encounter Progress Notes * Lakshmi Alfonzo, PRESS OPERATOR - 08/11/2025 8:40 AM EST Reason for Appointment: Patient ID: Shira Jett is a 30 y.o. female who presents for Routine Visit Patient presents today for Return OB appointment. MEDICATIONS Current Outpatient Medications Medication Instructions albuterol HFA 90 mcg/act inhaler 2 puffs, Inhalation, Every 4 hours PRN busPIRone (Buspar) 15 MG tablet TAKE 1 TABLET BY MOUTH 2 TIMES A DAY (MORNING AND BEFORE BEDTIME) cholecalciferol (Vitamin D3) 25 MCG (1000 UT) tablet 1 tablet, Daily citalopram (CELEXA) 20 mg, Oral, Every morning cyanocobalamin (Vitamin B-12) 1000 MCG/ML injection Enoxaparin Sodium 40 mg, 2 times daily ferrous sulfate 325 mg, Daily RT folic acid (FOLVITE) 400 mcg, Daily RT labetalol (Normodyne) 200 MG tablet TAKE 1 TABLET BY MOUTH 3 TIMES A DAY IN THE MORNING, EVENING AND BEFORE BEDTIME omeprazole (PriLOSEC) [address] capsule TAKE 1 CAPSULE BY MOUTH DAILY 30 MINUTES BEFORE MORNING MEAL Vit-Fe Fumarate-FA ( Vitamins) 28-0.8 MG tablet 1 tablet, Oral, Daily senna-docusate (Indira-Colace) 8.6-50 MG tablet 1 tablet, Daily RT ALLERGIES Allergies Allergen Reactions Sumatriptan Anaphylaxis and Unknown IMITREX FOR MIGRAINES Other Reaction(s): Other (See Comments) PROBLEMS Active Ambulatory Problems Diagnosis Date Noted Morbid obesity with body mass index of 60.0-69.9 in adult ([facility]) 01/26/2023 Polycystic ovarian disease 01/26/2023 Primary hypertension 01/26/2023 Adjustment disorder with anxiety 11/30/2021 Amnesia 05/17/2023 Anxiety 07/07/2019 Anemia 06/26/2019 Depression 06/13/2019 Disorder of endocrine system 05/17/2023 Family history of diabetes during 11/28/2021 Family history of thrombosis 03/17/2022 Frequent headaches 05/17/2023 Gastroesophageal reflux disease 12/15/2019 Gestational diabetes mellitus (GDM) ([facility]) 12/09/2018 History of diet controlled gestational [...] to infectious organism 07/30/2022 Preeclampsia in period ([facility]) 11/26/2021 Acute pulmonary embolism ([facility] [...] Mirena IUD GERD without esophagitis Gestational diabetes ([facility]) H/O blood clots H/O: hypertension High blood pressure History of being hospitalized Hormone imbalance Intrauterine device surveillance Irregular bleeding Morbid obesity with BMI of 50.0-59.9, adult [place] Nausea Nausea with vomiting Pneumonia 07/30/2022 hypertension ([facility]) Pulmonary embolism ([facility]) 11/2021 Well woman exam HISTORY PAST MEDICAL HISTORY SOCIAL HISTORY Past Medical History: Diagnosis Date Acute memory impairment Anemia Asthma ([facility]) COVID 02/2020 Depression Encounter for insertion of Mirena IUD Frequent headaches GERD without esophagitis Gestational diabetes ([facility]) H/O blood clots H/O gastric bypass H/O: hypertension High blood pressure History of being hospitalized Pt was re-admitted to [facility] for HTN (11/2021) , Pt had a baby (11/21/21) Hormone imbalance Intrauterine device surveillance Irregular bleeding Morbid obesity with BMI of 50.0-59.9, adult ([facility]) Nausea Nausea with vomiting Pneumonia 07/30/2022 hypertension ([facility]) Pulmonary embolism ([facility]) 11/2021 Rt. ; [facility] post Well woman exam Social [...] nursing note reviewed. Exam conducted with a assembler erector present. Vitals: Estimated body mass index is 44.55 kg/m?? as calculated from the following: Height as of 25: 5' 1 . Weight as of this encounter: 235 lb 12.8 oz. BP: 120/60 Patient's last menstrual period was 01/09/2025. Assessment/Plan ICD-10-CM 1. 30 weeks gestation of ([facility]) Z3A.30 POCT urinalysis dipstick manually resulted US biophysical profile w non stress test 2. Third trimester ([facility]) Z34.93 POCT urinalysis dipstick manually resulted US biophysical profile w non stress test 3. History of diet controlled gestational diabetes mellitus (GDM) Z86.32 POCT urinalysis dipstick manually resulted US biophysical profile w non stress test 4. Preeclampsia in period ([facility]) O14.95 POCT urinalysis dipstick manually resulted US biophysical profile w non stress test 5. History of pulmonary embolism Z86.711 POCT urinalysis dipstick manually resulted US biophysical profile w non stress test 6. Primary hypertension I10 POCT urinalysis dipstick manually resulted US biophysical profile w non stress test Assessment/Plan Return OB: Patient presents today for a routine obstetrics appointment. Patient is currently 30w4d . Patient states she is doing well but has complaints of being tired due to current . Patient has verbalizes frequent movement. labor precautions was discussed/given and patient was instructed to perform kick counts three times a day. Pt having problems with asthma. Pt has pain/pressure low back and tailbone. Pt to come off work at this time d/t health concerns while being . Orders Placed This Encounter Procedures US biophysical profile w non stress test POCT urinalysis dipstick manually resulted Follow Up: Patient is to return to office in 2 week for routine OB appointment. Documented by Lakshmi Mejía LPN on behalf of: Bin Morales DO documented in this encounter Plan of Treatment DateTypeDepartmentCare Team (Latest Contact Info)Rkbmmgscgnk60/17/2025 11:20 AM ESTRoutine [facility] [address] [place] [address] [place] [id number] Winter English PA [address] [place] [address] [place] [id number] NameTypePriorityAssociated DiagnosesOrder ScheduleUS biophysical profile w non stress testImagingRoutine 30 weeks gestation of ([facility]) Third trimester ([facility]) History of diet controlled gestational diabetes mellitus (GDM) Preeclampsia in period ([facility]) History of pulmonary embolism Primary hypertension Expected: 08/11/2025 (Approximate), Expires: 02/09/2026documented as of this encounter Goals GoalPatient Goal TypeAssociated ProblemsRecent ProgressPatient-Stated?Author Help patient manage antidepressant medication Care PlanPatient on antidepressant monitoring Riddhi Mcdonald MD Baseline PHQ-9 Care PlanBaseline PHQ-9Riddhi Lerma MDdocumented as of this encounter Procedures Procedure NamePriorityDate/TimeAssociated DiagnosisCommentsPOCT URINALYSIS MWKNVSWJBhafysf34/02/2025 9:11 AM EST 30 weeks gestation of ([facility]) Third trimester ([facility]) History of diet controlled gestational diabetes mellitus (GDM) Preeclampsia in period ([facility]) History of pulmonary embolism Primary hypertension documented in this encounter Results * (ABNORMAL) POCT urinalysis dipstick manually resulted (08/11/2025 9:11 AM EST) ComponentValueRef RangeTest MethodAnalysis TimePerformed AtPathologist SignatureColor, UAYellowClarity, UAClearGlucose, UANegativeNegative - 1999(110) ++++ mg/dLBilirubin, UANegativeNegative - 4(70) +++ mg/dLKetones, UA NegativeNegative - 160(16) ++++ mg/dLSpec Grav, UA1.0301 - 1.03Blood, UA NegativeNegative - 50 Raul/mcLpH, UA6.05 - 9Protein, UAPositiveNegative - 2000(20) ++++ mg/dLUrobilinogen, UA1.00.2 - 12 mg/dLLeukocytes, UA2+Negative - 500+++ Ramo/mcLNitrite, UANegativeNegative - PositiveSpecimen (Source) Anatomical Location / LateralityCollection Method / VolumeCollection Time Received PltcUcxgb39/02/2025 9:11 AM EST Narrative Authorizing ProviderResult TypeResult StatusCorey Carmen DOPOINT OF CARE TEST ENTER/EDIT ORDERABLESFinal Result documented in this encounter Visit Diagnoses Diagnosis 30 weeks gestation of ([facility]) Third trimester ([facility]) state, incidental History of diet controlled gestational diabetes mellitus (GDM) Preeclampsia in period ([facility]) History of pulmonary embolism Personal history of venous thrombosis and embolism Primary hypertension Unspecified essential hypertension documented in this encounter Additional Health Concerns Active ProblemsNoted DateDiagnosed DatePatient on antidepressant monitoring plan 4Baseline [id number]-904documented as of this encounter Care Teams Team MemberRelationshipSpecialtyStart DateEnd Date Riddhi Plata MD [address] [place] [address] PCP - GeneralFamily Medicine01/16/23documented as of this encounter
--- OUTSIDE RECORDS SUMMARY | 2025-08-17 11:02 | XMS_ITS | Encounter Summary ---
Author Organization [facility] tem Address [facility] [id number] [address] [place] [address] Care Team Providers Care Local Company Hazmat Driver Name Role Phone Riddhi Plata MD Primary Care Provider [phone] Reason for Referral * Diagnostic Imaging (Routine) - Pending ReviewSpecialtyDiagnoses / Procedures Referred By ContactReferred To ContactMaternal and Medicine Diagnoses Pre-diabetes History of gestational diabetes in prior , currently History of Arlene-en-Y gastric bypass Chronic hypertension affecting History of pre-eclampsia in prior , currently in second trimester Procedures US MF with or without consult Sana Lima MD [address] [place] [address] Phone: tel: fax: Maternal- Medicine at [facility] [address] [place] [address] Phone: tel: fax: Referral IDStatusReasonStart DateExpiration DateVisits RequestedVisits [id number] Reason for Visit * Diagnostic Imaging (Routine) - Pending ReviewSpecialtyDiagnoses / Procedures Referred By ContactReferred To ContactMaternal and Medicine Diagnoses Pre-diabetes History of gestational diabetes in prior , currently History of Arlene-en-Y gastric bypass Chronic hypertension affecting History of pre-eclampsia in prior , currently in second trimester Procedures US [facility] with or without consult Sana Lima MD [address] [place] [address] Phone: tel: fax: Maternal- Medicine at [facility] [address] [place] [address] Phone: tel: fax: Referral IDStatusReasonStart DateExpiration DateVisits RequestedVisits [id number] Encounter Details DateTypeDepartmentCare Team (Latest Contact Info)Deybltmdnxp96/08/2025 11:02 AM EST - 08/17/2025 11:59 PM ESTHospital Encounter [facility] - [facility] US Imaging [address] [place] [address] Pre-diabetes; History of gestational diabetes in prior , currently ; History of Arlene-en-Y gastric bypass; Chronic hypertension affecting ; History of pre-eclampsia in prior , currently in second trimester Discharge Disposition: Home Social History Tobacco UseTypesPacks/DayYears UsedDateSmoking Tobacco: NeverSmokeless Tobacco: NeverAlcohol UseStandard Drinks/WeekCommentsNot Currently0 (1 standard drink = 0.6 oz pure alcohol)Green [employer] UtilitiesAnswerDate RecordedIn the past 12 months has the [employer], [employer], or water [employer] threatened to shut off services in your [...] care, and heating?Not hard at all06/23/2025PHQ-2AnswerDate RecordedTotal Nxwdm513 PRAPARE - TransportationAnswerDate RecordedIn the past 12 [...] for you to work or study?No06/23/2025 EmploymentAnswerDate CgctyyioDyiaaakhuoEsxwmot18/06/2019Hunger ScreeningAnswer Date RecordedWithin the past 12 months we worried whether our food would run out before we got money to buy more.Never True06/23/2025Within the past 12 months the food we bought just didn't last and we didn't have money to get more.Never True06/23/2025Purpose - LifeAnswerDate RecordedPurpose and direction in life Qcnivge69/27/2021Estimated Date of JmthovstYroeyeusFox53/06/2026Based on last menstrual period of 01/09/2025Sex and Gender InformationValueDate RecordedSex Assigned at VveysZytkvu33/20/2022 9:31 PM ESTLegal GnvGxpwek89/06/2015 11:49 AM EDTGender CavrhnhjVneuyo33/20/2022 9:31 PM ESTSexual OrientationStraight 07/30/2022 9:31 PM [...] Plan of Treatment DateTypeDepartmentCare Team (Latest Contact Info)Nqhgqlyphlm51/30/2025 2:15 PM ESTAppointment [facility] - [facility]ound [address] [place] [address] 09/17/2025 10:15 AM ESTOffice Visit [facility] [address] [place] [address] [place] [address] [place] [address] 09/22/2025 3:15 PM ESTAppointment [facility] - Ultrasound [address] [place] [address] documented as of this encounter Goals GoalPatient Goal TypeAssociated ProblemsRecent ProgressPatient-Stated?Author safe discharge to home Kate Malave, LEANDRO Note: Evaluation of progress towards goal: safe transition from hospital to home with family support. documented as of this encounter Procedures Procedure NamePriorityDate/TimeAssociated DiagnosisCommentsUS MFM OB FOLLOW-UP, 1 FBWDIPsapwih66/08/2025 12:46 PM EST Pre-diabetes History of gestational diabetes in prior , currently History of Arlene-en-Y gastric bypass Chronic hypertension affecting History of pre-eclampsia in prior , currently in second trimester documented in this encounter Results * US MFM OB FOLLOW-UP, 1 FETUS (08/17/2025 12:46 PM EST)Anatomical Region LateralityModalityOB-GYNUltrasoundSpecimen (Source)Anatomical Location / LateralityCollection Method / VolumeCollection TimeReceived Time08/17/2025 11:44 AM EST Narrative 08/17/2025 1:15 PM EST NAME: ??TARA PERKINS : 1995 SEX: F Accession Number: [id number] ORDERING PHYSICIAN: SANA LIMA REFERRING PHYSICIAN: SANA LIMA Coding Procedures ? 54756: Ultrasound, uterus, real time with image documentation, follow up,transabdominal ? approach per fetus ? 63337: Doppler velocimetry, ; umbilical artery Indication Screening [...] (oz) ? 4 oz EFW by: ?Hadlock ([id number]-FL) Extended Tibia ??48.6 mm 29w 2d 8% [...] Thorax RVOT view. LVOT view. 3-vessel view. 2-gsnquv-gdmnqee view. Aortic arch view. Bicaval view. Ductal [...] PERKINS : 1995 SEX: F Accession Number: [id number] ORDERING PHYSICIAN: SANA LIMA REFERRING PHYSICIAN: SANA LIMA Coding Procedures 41792: Ultrasound, uterus, real time with image documentation, follow up, transabdominal approach per fetus 33142: Doppler velocimetry, ; umbilical artery Indication Screening [...] EFW (oz) 4 oz EFW by: Hadlock ([id number]-ZH-EF-FL) Extended Tibia 48.6 mm 29w 2d 8% [...] Thorax RVOT view. LVOT view. 3-vessel view. 0-ftksng-jjlbdtq view.Aortic arch view. Bicaval view. Ductal arch [...]
--- OUTSIDE RECORDS SUMMARY | 2025-08-17 12:30 | XMS_ITS | Encounter Summary ---
[facility] Organization [facility] tem Address [id number] [address] [place] [address] Care Team Providers Care Real Estate Intern Name Role Phone Riddhi Plata MD Primary Care Provider [phone] Reason for Visit * ReasonCommentsAdd on FGR Encounter Details DateTypeDepartmentCare Team (Latest Contact Info)Bkzradmikpw67/08/2025 12:30 PM ESTOffice Visit Maternal- [facility] at [facility] [address] [place] [id number] Sana Lima MD [address], [place] [id number] 31 weeks gestation of (Primary Dx); Poor growth affecting management of mother in third trimester, single or unspecified fetus; H/O gastric bypass; History of pulmonary embolism; Chronic hypertension affecting Social History Tobacco UseTypesPacks/DayYears UsedDateSmoking Tobacco: NeverSmokeless Tobacco: Never Tobacco Cessation:Counseling Given: Not Answered Alcohol UseStandard Drinks/WeekCommentsNot Currently0 (1 standard drink = 0.6 oz pure alcohol)socialAHC UtilitiesAnswerDate RecordedIn the past 12 months has the [employer], gas, oil, or water [employer] threatened to shut off services in your [...] care, and heating?Not hard at all06/23/2025PHQ-2AnswerDate RecordedTotal Ycdqa338RAPARE - TransportationAnswerDate RecordedIn the past 12 months, [...] of a household?No06/23/2025hildcareAnswerDate RecordedDo problems getting child psychologist make it difficult for you to work or study?No06/23/2025 EmploymentAnswerDate FjlrxuatOoluwhklkeCkfigbo46/06/2019Hunger ScreeningAnswer Date RecordedWithin the past 12 months we worried whether our food would run out before we got money to buy more.Never True06/23/2025Within the past 12 months the food we bought just didn't last and we didn't have money to get more.Never True06/23/2025Purpose - LifeAnswerDate RecordedPurpose and direction in life Ccfwcgo29/27/2021Estimated Date of IlfhcsscZnwzzzntXuj69/06/2026Based on last menstrual period of 01/09/2025Sex and Gender InformationValueDate RecordedSex Assigned at BppxnJlkssi35/20/2022 9:31 PM ESTLegal LpxXfciqq20/06/2015 11:49 AM EDTGender BbahcnifWenswj78/20/2022 9:31 PM ESTSexual OrientationStraight 07/30/2022 9:31 PM ESTdocumented as of this encounter Last Filed Vital Signs Vital SignReadingTime TakenCommentsBlood Xfsqwhvc311/7508/17/2025 12:17 PM EST Cxopu734708/17/2025 12:17 PM ESTTemperature--Respiratory Rate--Oxygen Saturation-- Inhaled Oxygen Concentration--Weight--Height--Body Mass Index--documented in this encounter Progress Notes * Anne Pozo RN - 08/17/2025 12:30 PM EST Headache/epigastric pain/blurry vision/swelling? no Cramping/contractions? [place]itt[place] Joseph Spotting or vaginal bleeding? no Loss or gush of fluid like your water may have broken? no Recent ER visits or hospitalizations? no Any concerns that you would like me to mention to the provider today? RSV Vaccine in * Sana Lima MD - 08/17/2025 12:30 PM EST [facility] Follow-up visit Reason For Consult: ADD-ON for new diagnosis of diagnosis of non-severe FGR 6% with normal Dopplers Please refer to original consult not from 07/09/2025 for following problems History of preeclampsia, chronic hypertension, history of pulmonary embolism in period, history of prediabetes, history of gestational diabetes in prior , history of gastric bypass, obesity with BMI 44, LUCIANO on CPAP, depression and anxiety HPI: Shira Jett is a 30 y.o. at 31w3d with Estimated Date of Delivery: 10/16/25 based on LMP=US at 9w2d who presented for consultation from Bin Gaspar DO regarding Chief Complaint Patient presents with Add on FGR I have reviewed the pertinent available patient records including but not limited to notes, labs and images She presents today with She reports that she is doing well. She reports normal movements and she denies leakage of fluid, contractions or vaginal bleeding. She denies fever, chills, nausea, vomiting, shortness of breath, chest pain, headache, blurry vision, right upper quadrant pain or edema. complicated by: 1. CHTN, previously managed on lisinopril prior to weight loss and bariatric surgery. Currently managed on labetalol 200 mg TID. Stable. 2. Hx of PP PreE with pulmonary embolism - currently on Lovenox 40 mg BID (prothrombin, factor 5, antithrombin 3, protein C - negative/normal. Protein S decreased however patient was tested during . APLS not applicable because she is taking anticoagulation currently. We will offer testing post delivery). Patient's father with multiple episodes of DVT - no genetic testing 3. History of prediabetes, A1c 6.1% in 2023, 5.0% following weight loss/bariatric, surgery, most recent 4.8 on June 2025. Supposed to get BS check as diabetic screening however - glucometer was not approved by insurance. Offered to place CGM today at [facility] office. 4.History of gestational diabetes in 2 prior pregnancies 5.History of gastric bypass in 04/23/2024 (Bonnie-en-y surgery) 6. Obesity affecting , pre gravid BMI >40 7. LUCIANO, uses CPAP machine 8. Depression and anxiety, currently celexa and buspar. Mood stable. Denies SI/HI 9. Gallbladder disease Complications: Problem List Items Addressed This Visit None Denies family history of: learning difficulties, congenital anomalies, DVT/VTE, early-onset cancer,early-onset cardiac disease or other inherited conditions Cell free DNA: Low risk Carrier screen: MSAFP: No results found for: MSAFPMOM , MSAFP , MSAFPSCR Folic acid: vitamins, folic acid Denies tobacco or marijuana smoking, alcohol or other substance use in Denies exposure to cat litter, farming animals, toxic exposure to chemical at work/environment Recent hospitalization (past 30 days): denies Review of systems: Review of systems was noncontributory OB Hx: OB History Para Term AB Living 3 [...] IRVIN Complications: Gestational diabetes, Preeclampsia in period PREECLAMPSIA SCREEN ([place] Preventive Services Task Force) Patient is at high risk if 1 or more factors present. Incidence of preeclampsia is >= 8%: [x]Prior preeclampsia []Multiple gestation []Chronic hypertension []Type 1 or 2 diabetes []Renal disease []Autoimmune disease (Lupus, APLS) Patient is at moderate risk is several risk factors are present: []Nulliparity [x]Obesity (BMI >= 30) []Family history of preeclampsia (mother, sister) []Sociodemographic characteristics (AA, low socioeconomic status) []Age >= 35 []Personal history factor (Previous SGA, adverse outcome, > 10 years from last ) PMH: Past Medical History: Diagnosis Date ADHD (attention deficit hyperactivity disorder) Anxiety Asthma, mild intermittent Depression Disorder of endocrine system GERD (gastroesophageal reflux disease) Gestational diabetes 12/09/2018 H/O gastric bypass History of anemia while History of pneumonia History of hypertension History of pre-eclampsia History of pulmonary embolism Irregular heart beat Migraine Obesity Obstructive sleep apnea PCOS (polycystic ovarian syndrome) Visual impairment stigmatism PSHIST: Past Surgical History: Procedure Laterality Date CARDIAC CATHETERIZATION 07/30/2022 CARDIAC CATHETERIZATION 11/23/2018 DAVINCI DV5 BYPASS GASTRIC BONNIE-EN Y N/A 04/23/2024 Performed by Ken Manzo MD at [facility] FINE NEEDLE ASPIRATION 06/14/2020 US Guided Percutaneous Aspiration MINI-LAPAROTOMY removal of IUD PELVIC LAPAROSCOPY 11/03/2022 with removal of IUD Allergies: Allergies Allergen Reactions Sumatriptan Anaphylaxis and Other (See Comments) IMITREX FOR MIGRAINES Meds: Current Outpatient Medications: acetaminophen (TYLENOL EXTRA STRENGTH) 500 mg tablet, Take 3 tablets (1,500 mg total) by mouth every 8 (eight) hours as needed for pain Indications: pain., Disp: , Rfl: albuterol (PROVENTIL HFA;VENTOLIN HFA) 90 mcg/actuation inhaler, Inhale 2 puffs every 4 (four) hours as needed for wheezing., Disp: 18 g, Rfl: 0 aspirin 81 mg, Take 1 tablet (81 mg total) by mouth in the morning., Disp: 30 tablet, Rfl: 6 blood sugar diagnostic strip, 1 strip by other route as needed for high blood sugar. Strips that will be compatible with patient glucometer and supported by her insurance, Disp: 100 strip, Rfl: 6 blood sugar diagnostic strip, Check fingersticks 4 times daily, fasting and 1 hour after the start of a meal, Disp: 100 strip, Rfl: 1 busPIRone (BUSPAR) 15 mg tablet, Take 1 tablet (15 mg total) by mouth 2 (two) times a day as needed. (Patient not taking: Reported on 07/09/2025), Disp: , Rfl: citalopram (CeleXA) 20 mg tablet, Take 1 tablet (20 mg total) by mouth nightly Indications: anxiousness associated with depression., Disp: , Rfl: cyanocobalamin (VITAMIN B-12) 1,000 mcg/mL injection, Inject 1 mL (1,000 mcg total) into the appropriate muscle every 30 (thirty) days., Disp: 3 mL, Rfl: 1 enoxaparin (LOVENOX) 40 mg/0.4 mL syringe, Inject 0.4 mL (40 mg total) under the skin in the morning and at bedtime., Disp: 12 mL, Rfl: 11 ferrous sulfate 325 (65 FE) MG tablet, Take 1 tablet (325 mg total) by mouth in the morning., Disp:90 tablet, Rfl: 1 folic acid (FOLVITE) 400 MCG tablet, Take 1 tablet (400 mcg total) by mouth in the morning., Disp: 30 tablet, Rfl: 6 labetaloL (NORMODYNE) 200 mg tablet, Take 1 tablet (200 mg total) by mouth 3 (three) times a day., Disp: , Rfl: omeprazole (PriLOSEC OTC) 20 mg EC tablet, Take 1 tablet (20 mg total) by mouth in the morning. (Patient not taking: Reported on 07/09/2025), Disp: , Rfl: 115/iron/folic acid ( 19 ORAL), Take by mouth., Disp: , Rfl: sennosides-docusate sodium (SENOKOT-S) 8.6-50 mg, Take 1 tablet by mouth in the morning., Disp: 30 tablet, Rfl: 6 syringe with needle (BD LUER-KARENA SYRINGE) 3 mL 25 x 1 1/2 syringe, 1 SYRG by miscellaneous route every 30 (thirty) days., Disp: 3 each, Rfl: 1 SH: Social History Socioeconomic History Marital status: Spouse name: Not on file Number of [...] Social History Narrative Not on file Social Drivers of Health Financial Resource Strain: Low Risk (06/23/2025) Overall Financial Resource Strain (CARDIA) Difficulty of Paying Living Expenses: Not hard at all Food Insecurity: No Food Insecurity (06/23/2025) Hunger Screening Food Insecurity - Worry: Never True Food Insecurity - Inability: Never True Transportation Needs: No Transportation Needs (06/23/2025) PRAPARE - Transportation Lack of Transportation (Medical): No Lack of Transportation (Non-Medical): No Physical Activity: Not on file Stress: Not on file Social Connections: Not on file Interpersonal Safety: Not At Risk (06/23/2025) Humiliation, Afraid, Rape, and Kick questionnaire Fear of Current or Ex-Partner: No Emotionally Abused: No Physically Abused: No Sexually Abused: No Housing Instability: Low Risk (06/23/2025) Housing Instability Housing Instability: No Physical Exam: Vital Signs Vitals: 08/17/25 1217 BP: 114/75 BP Site: Right Arm BP Postition: Sitting BP CUFF SIZE: L (13-17 inches) Pulse: 70 Physical Exam: Gen: Not in acute distress, alert and oriented. Eyes: Pupils equal and reactive Chest: Nonlabored breathing Cardiac: Pulse was regular on vital signs assessment Abdomen: Gravid Skin/extremities: Appears intact. No visible lesions MS:no visible edema Neuro: No focal deficits Recent notes, laboratory evaluation and images reviewed labs reviewed: Recent Results (from the past 40 weeks) Vitamin D 25 hydroxy Collection Time: 01/01/25 9:09 AM Result Value Ref Range Vit D, 25-Hydroxy 32.4 30 - 100 ng/mL Vitamin B12 Collection Time: 01/01/25 9:09 AM Result Value Ref Range Vitamin B-12 379 180 - 914 pg/mL Thiamin (Vitamin B1), WB Collection Time: 01/01/25 9:09 AM Result Value Ref Range Thiamine 118 70 - 180 nmol/L Liver panel Collection Time: 01/01/25 9:09 AM Result Value Ref Range Alkaline phosphatase 95 39 - 130 U/L AST 18 0 - 41 U/L ALT 24 0 - 31 U/L Total Bilirubin 0.4 0.3 - 1.2 mg/dL Bilirubin, direct 0.2 0.0 - 0.4 mg/dL Albumin 4.1 3.2 - 5.3 g/dL Total Protein 7.1 6.0 - 8.0 g/dL Iron and TIBC Collection Time: 01/01/25 9:09 AM Result Value Ref Range Iron 36 (L) 50 - 170 ug/dL Tibc-calc only do not order 346 250 - 425 ug/dL Iron Saturation 10 (L) 15 - 50 % SATURATION Folate Collection Time: 01/01/25 9:09 AM Result Value Ref Range Folate 4.0 (L) >5.8 ng/mL Ferritin Collection Time: 01/01/25 9:09 AM Result Value Ref Range Ferritin 40 11 - 307 ng/mL CBC auto differential Collection Time: 01/01/25 9:09 AM Result Value Ref Range White Blood Cells 10.5 4.0 - 11.0 X10E9/L RBC count 4.45 3.80 - 5.20 X10E12/L Hemoglobin 12.8 11.7 - 15.5 g/dL Hematocrit 38.0 35 - 47 % MCV 85 80 - 100 fL MCH 28.8 27 - 34 pg MCHC 33.8 32 - 36 g/dL RDW 14.2 11.5 - 15.0 % Platelets 308 150 - 450 X10E9/L MPV 8.7 7 - 12 fL % neutrophils 57.9 % % lymphocytes 36.4 % % monocytes 4.1 % % eosinophils 0.9 % % Basophils 0.7 % Neutrophils Absolute (A) 6.0 1.5 - 6.6 X10E9/L Lymphocytes Absolute 3.8 (H) 1.0 - 3.5 X10E9/L Monocytes Absolute 0.4 0 - 0.9 X10E9/L Eosinophils Absolute 0.1 0.0 - 0.4 X10E9/L Basophils Absolute 0.1 0.0 - 0.2 X10E9/L Syphilis Total (Unknown Syphilis Status) Collection Time: 03/25/25 12:00 AM Result Value Ref Range Syphilis non reactive HIV 1&2 AB/AG Screen (P24 AG) Collection Time: 03/25/25 12:00 AM Result Value Ref Range HIV 1&2 AB/AG non reactive Hepatitis B surface antigen Collection Time: 03/25/25 12:00 AM Result Value Ref Range Hepatitis B Surface Antigen negative Rubella IGG immune status Collection Time: 03/25/25 12:00 AM Result Value Ref Range Rubella immune IgG 1.59 Type and screen Collection Time: 03/25/25 12:00 AM Result Value Ref Range Antibody Screen negative HIV 1&2 AB/AG Screen (P24 AG) Collection Time: 03/25/25 12:00 AM Result Value Ref Range HIV 1&2 AB/AG non reactive Hepatitis C(HCV) Ab w/ Reflex to PCR Collection Time: 03/25/25 12:00 AM Result Value Ref Range Hepatitis C Antibody non reactive CBC and differential Collection Time: 03/25/25 12:00 AM Result Value Ref Range Hemoglobin 12.3 12.0 - 16.0 g/dL Hematocrit 37 36 - 46 % Platelets 243 150 - 399 10*3/uL Auto WBC 12.4 (A) 3.3 - 10.0 10*3/mL Basic Metabolic Panel Collection Time: 03/25/25 12:00 AM Result Value Ref Range Glucose 97 mg/dL Hemoglobin A1c Collection Time: 03/25/25 12:00 AM Result Value Ref Range Hemoglobin A1C 5.0 4.0 - 6.0 % Type and screen Collection Time: 03/25/25 12:00 AM Result Value Ref Range Antibody Screen negative CBC without diff Collection Time: 03/25/25 12:00 AM Result Value Ref Range Hemoglobin 12.3 Hematocrit 36.5 Rbc Mcv (Fl) By Automated Count 87.1 Platelets 243 Drug Screen, Urine Collection Time: 03/25/25 12:00 AM Specimen: Urine Result Value Ref Range Methadone negative Opiates negative Amphetamine/Methamphetamine negative Cocaine Metabolite negative Phencyclidine negative Thc Marijuana, Urine negative Oxycodone negative Barbiturates negative Benzodiazepines negative B-type natriuretic peptide Collection Time: 05/29/25 1:48 PM Result Value Ref Range BNP 23 <=100 pg/mL CBC without diff Collection Time: 05/29/25 1:48 PM Result Value Ref Range WBC 9.8 4 - 11 x10E9/L RBC Count 3.81 3.8 - 5.2 X10E12/L Hemoglobin 11.8 11.7 - 15.5 g/dL Hematocrit 33.8 (L) 35 - 47 % MCV 89 80 - 100 fL MCH 30.9 27 - 34 pg MCHC 34.8 32 - 36 g/dL RDW 13.5 11.5 - 15 % Platelet Count 245 150 - 450 X10E9/L MPV 8.4 7 - 12 fL Comprehensive metabolic panel Collection Time: 05/29/25 1:48 PM Result Value Ref Range SODIUM 139 134 - 146 mmol/L POTASSIUM 3.6 3.5 - 5.0 mmol/L CHLORIDE 106 98 - 109 mmol/L CARBON DIOXIDE 19 (L) 22 - 32 mmol/L ANION GAP 14 5 - 15 mmol/L BLOOD UREA NITROGEN 9 5 - 23 mg/dL CREATININE 0.45 0.40 - 1.00 mg/dL GLUCOSE 128 (H) 65 - 99 mg/dL CALCIUM 8.8 8.5 - 10.5 mg/dL TOTAL PROTEIN 6.5 6.0 - 8.0 g/dL ALBUMIN 3.7 3.2 - 5.3 g/dL ALKALINE PHOSPHATASE 69 39 - 130 U/L AST 12 <=41 U/L ALT 11 <=31 U/L BILIRUBIN,TOTAL 0.3 0.3 - 1.2 mg/dL EGFR Non-Race Dependent >90 >=60 ml/min/1.73sq.m Protein creat ratio Collection Time: 05/29/25 1:48 PM Specimen: Urine, Clean Catch Midstream Result Value Ref Range URINE PROTEIN, RANDOM (MG/L) 110 <120 mg/L URINE CREATININE,RDM 138.80 mg/dL U/PRO/SEISMIC SURVEY ASSISTANT RATIO CALC 0.08 <=0.20 Uric acid Collection Time: 05/29/25 1:48 PM Result Value Ref Range URIC ACID 4.4 2.6 - 7.2 mg/dL LDH Collection Time: 05/29/25 1:48 PM Result Value Ref Range LDH 164 100 - 235 U/L Thiamin (Vitamin B1), WB Collection Time: 05/29/25 1:48 PM Result Value Ref Range THIAMIN (VITAMIN B1), WB 123 70 - 180 nmol/L Vitamin B12 Collection Time: 05/29/25 1:48 PM Result Value Ref Range VITAMIN B12 243 180 - 914 pg/mL Vitamin D 25 hydroxy Collection Time: 05/29/25 1:48 PM Result Value Ref Range VITAMIN D 25 HYD TOT 27.1 (L) 30.0 - 100.0 ng/mL Zinc, Serum Collection Time: 05/29/25 1:48 PM Result Value Ref Range ZINC, S 62 60 - 106 mcg/dL Folate Collection Time: 05/29/25 1:48 PM Result Value Ref Range FOLIC ACID 13.3 >5.8 ng/mL Ferritin Collection Time: 05/29/25 1:48 PM Result Value Ref Range FERRITIN 15 11 - 307 ng/mL Iron and TIBC Collection Time: 05/29/25 1:48 PM Result Value Ref Range IRON 71 50 - 170 ug/dL TRANSFERRIN 332 168 - 336 mg/dL IRON BINDING 465 (H) 250 - 425 ug/dL IRON SATURATION 15 15 - 50 % SATURATION Protein S activity Collection Time: 05/29/25 1:48 PM Result Value Ref Range PROTEIN S ACTIVITY 55 (L) 64 - 149 % Protein C activity Collection Time: 05/29/25 1:48 PM Result Value Ref Range PROTEIN C ACTIVITY 137 70 - 140 % Anti thrombin 3 funct Collection Time: 05/29/25 1:48 PM Result Value Ref Range ANTI THROMBIN 3 FUNCT 93 83 - 128 % CBC auto differential Collection Time: 06/17/25 11:04 AM Result Value Ref Range WBC 11.3 (H) 4 - 11 x10E9/L RBC Count 3.68 (L) 3.8 - 5.2 X10E12/L Hemoglobin 11.4 (L) 11.7 - 15.5 g/dL Hematocrit 32.5 (L) 35 - 47 % MCV 88 80 - 100 fL MCH 30.8 27 - 34 pg MCHC 35.0 32 - 36 g/dL RDW 13.4 11.5 - 15 % Platelet Count 262 150 - 450 X10E9/L MPV 7.6 7 - 12 fL Neutrophils % 65.5 % Lymphocytes % 27.4 % Monocytes % 4.5 % Eosinophils % 1.3 % Basophils % 1.3 % Neutrophils Absolute (A) 7.4 (H) 1.5 - 6.6 10*3/uL Lymphocytes Absolute 3.1 1.0 - 3.5 10*3/uL Monocytes Absolute 0.5 0.0 - 0.9 10*3/uL Eosinophils Absolute 0.1 0.0 - 0.4 10*3/uL Basophils Absolute 0.1 0.0 - 0.2 10*3/uL Differential Type AUTOMATED DIFFERENTIAL Lipase Collection Time: 06/17/25 11:04 AM Result Value Ref Range LIPASE 25 17 - 40 U/L Comprehensive metabolic panel Collection Time: 06/17/25 11:04 AM Result Value Ref Range SODIUM 133 (L) 134 - 146 mmol/L POTASSIUM 3.6 3.5 - 5.0 mmol/L CHLORIDE 105 98 - 109 mmol/L CARBON DIOXIDE 20 (L) 22 - 32 mmol/L ANION GAP 8 5 - 15 mmol/L BLOOD UREA NITROGEN 12 5 - 23 mg/dL CREATININE 0.54 0.40 - 1.00 mg/dL GLUCOSE 96 65 - 99 mg/dL CALCIUM 8.5 8.5 - 10.5 mg/dL TOTAL PROTEIN 6.3 6.0 - 8.0 g/dL ALBUMIN 3.0 (L) 3.2 - 5.3 g/dL ALKALINE PHOSPHATASE 60 39 - 130 U/L AST 17 <=41 U/L ALT 17 <=31 U/L BILIRUBIN,TOTAL 0.8 0.3 - 1.2 mg/dL EGFR Non-Race Dependent >90 >=60 ml/min/1.73sq.m Light Blue Top Collection Time: 06/17/25 11:04 AM Result Value Ref Range Extra Tube Auto Resulted POCT Nursing Urine Macroscopic UA Collection Time: 06/17/25 11:09 AM Result Value Ref Range POC Urine Specific Christoval 1.025 1.010, 1.015, 1.020, 1.025 POC Urine Leukocyte Esterase Negative Negative POC Urine Nitrite Negative Negative POC Urine pH 6.5 5.0, 6.0, 6.5, 7.0, 7.5, 8.0, 8.5, 5.5 POC Urine Protein Negative Negative POC Urine Glucose Negative Negative POC Urine Ketones Negative Negative POC Urine Urobilinogen 2.0 E.U./dL POC Urine Bilirubin Negative Negative POC Urine Blood/HGB Negative Negative Er Extra Urine Collection Time: 06/17/25 11:24 AM Specimen: Urine Result Value Ref Range Extra Tube Auto Resulted CBC auto differential Collection Time: 06/23/25 4:21 AM Result Value Ref Range WBC 9.7 4 - 11 x10E9/L RBC Count 3.38 (L) 3.8 - 5.2 X10E12/L Hemoglobin 10.6 (L) 11.7 - 15.5 g/dL Hematocrit 29.9 (L) 35 - 47 % MCV 88 80 - 100 fL MCH 31.3 27 - 34 pg MCHC 35.3 32 - 36 g/dL RDW 13.0 11.5 - 15 % Platelet Count 244 150 - 450 X10E9/L MPV 7.8 7 - 12 fL Neutrophils % 69.6 % Lymphocytes % 24.9 % Monocytes % 4.0 % Eosinophils % 1.1 % Basophils % 0.4 % Neutrophils Absolute (A) 6.8 (H) 1.5 - 6.6 10*3/uL Lymphocytes Absolute 2.4 1.0 - 3.5 10*3/uL Monocytes Absolute 0.4 0.0 - 0.9 10*3/uL Eosinophils Absolute 0.1 0.0 - 0.4 10*3/uL Basophils Absolute 0.0 0.0 - 0.2 10*3/uL Differential Type AUTOMATED DIFFERENTIAL Comprehensive metabolic panel Collection Time: 06/23/25 4:21 AM Result Value Ref Range SODIUM 136 134 - 146 mmol/L POTASSIUM 3.9 3.5 - 5.0 mmol/L CHLORIDE 108 98 - 109 mmol/L CARBON DIOXIDE 20 (L) 22 - 32 mmol/L ANION GAP 8 5 - 15 mmol/L BLOOD UREA NITROGEN 9 5 - 23 mg/dL CREATININE 0.44 0.40 - 1.00 mg/dL GLUCOSE 97 65 - 99 mg/dL CALCIUM 8.7 8.5 - 10.5 mg/dL TOTAL PROTEIN 6.3 6.0 - 8.0 g/dL ALBUMIN 3.1 (L) 3.2 - 5.3 g/dL ALKALINE PHOSPHATASE 62 39 - 130 U/L AST 11 <=41 U/L ALT 16 <=31 U/L BILIRUBIN,TOTAL 0.5 0.3 - 1.2 mg/dL EGFR Non-Race Dependent >90 >=60 ml/min/1.73sq.m Lipase Collection Time: 06/23/25 4:21 AM Result Value Ref Range LIPASE 25 17 - 40 U/L Urinalysis Collection Time: 06/23/25 5:20 AM Specimen: Urine, Clean Catch Midstream Result Value Ref Range COLOR Yellow Yellow TURBIDITY Clear Clear SPECIFIC GRAVITY 1.020 1.003 - 1.035 NITRITE Negative Negative PH,URINE 6.0 5.0 - 8.5 LEUKOCYTE ESTERASE Negative Negative PROTEIN Negative Negative KETONES (URINE) Negative Negative UROBILINOGEN 1.0 eu/dL 0.2 eu/dL, 1.0 eu/dL BILIRUBIN (URINE) Negative Negative BLOOD/HGB Negative Negative GLUCOSE (URINE) Negative Negative, 250 mg/dL Previous Ultrasound findings No results found. Today's Ultrasound findings Single live intrauterine . growth restriction with EFW measuring at the 6%. AC measures at the 9%. [id number] g Amniotic fluid MVP measures 4.8 cm. Umbilical artery S/D ratio in normal range. ASSESSMENT and PLAN 30 y.o. @ at 31w3d with Estimated Date of Delivery: 10/16/25 here for consultation regarding: Non- severe FGR with EFW 6% and normal UA Dopplers We reviewed the findings of growth restriction which is defined as an estimated weight or abdominal circumference less than the 10th percentile for gestational age. While the majority of fetuses with prenatally identified growth restriction will actually be just constitutionally small , the goal of additional testing is to identify cases of pathologic restricted growth. Potential etiologies of growth restriction include: genetic abnormalities, infection, maternal infection, structural anomalies, extremes of maternal age, teratogens, multiple gestation, smoking and/or alcohol use, and maternal conditions such as chronic hypertension, preeclampsia, chronic kidney disease, or pregestational diabetes. Also placenta issues such as placenta insufficiency can be a significant cause for growth restriction. Denies feeling sick early in the or havingflu-like symptoms. Denies exposure to cat litter or handling soil. She denies having infectious exposure during the . She has a low risk cell free DNA. Diagnostic testing is recommended (including microarray) when FGR is detected and a malformation, polyhydramnios, or both are present regardless of gestational age. We discussed the risks/benefits of diagnostic testing. diagnostic testing is recommended when unexplained isolated FGR is diagnosed at <32 weeks of gestation. If diagnotic testing is performed than CMV testing shouldalso be performed. If diagnostic testing is not desired, serologic testing for CMV in the third trimester is not warranted in the absence of risk factors or ultrasound markers of infection. Limitations of serologies were reviewed. Patient and her declined amniocentesis for genetics and infection. No sonographic evidence of infection on today's ultrasound. After reviewing available diagnostic genetic and infectious testing in the form of amniocentesis versus evaluation and risks and benefits of both patient desires evaluation if needed. Serologies declined. There are increased rates of morbidity and mortality with growth restriction which warrants increased surveillance and consideration of betamethasone for lung maturity if premature delivery is indicated. Normal interval growth, normal umbilical artery dopplers, and normalamniotic fluid levels better support a diagnosis of constitutionally small fetus, and have lower risk for adverse outcomes. Delivery timing depends on the results of the workup and testing. Mode of delivery does not have to be altered for FGR, though rates of are higher due to frequent intolerance of labor. Baby is at risk for NICU admission and prematurity. Risks reviewed with patient. Reviewed long-term outcomes in babies with growth restriction. FGR babies are at increased risk of early-onset cardiometabolic diseases later on in life and some are also at risk of poor neurodevelopmental outcomes. Women who experience growth restriction are themselves at an increased risk of long-term cardiovascular disease. Timing of delivery: Based on ultrasound findings today recommend delivery at 38 weeks [facility] recommendations summary FGR is defined as EFW <10% and/or AC <10%ile. - Uncomplicated, no concurrent findings, EFW 3-10%ile or AC <10%: 38w0d - 39w0d - Uncomplicated, no concurrent findings, EFW <3%ile: 37w0d or at time of diagnosis if diagnosed later - elevated S/D ratio, or resistance index >95th %ile with present end-diastolic flow in umbilical artery: 37w0d or at time of diagnosis if diagnosed later - absent end-diastolic flow umbilical artery: [id number] or at time of diagnosis if diagnosed later - reversed end-diastolic flow umbilical artery: [id number]-[id number] or at time of diagnosis if diagnosed later - concurrent conditions (oligohydramnios, maternal comorbidity such as preeclampsia, chronic hypertension) : 34w0d- 37w6d - concurrent conditions (ie, abnormal umbilical artery doppler): 34w0d - 37w6d. Consider delivery at 32w0d with reversed end diastolic flow RECOMMENDATIONS [x] Aneuploidy screening - completed - low risk [x] Low dose aspirin 81 mg q.day for preeclampsia prevention [x] Continue labetalol 200 mg Q12h. BP logs encourage to bring each OB visit. No logs today, but report BP in target< 140/90. Today in office BP wnl. [x] Detailed anatomic evaluation - new diagnosis of FGR today - see discussion above. Plan to obtain growth ultrasound with MFM office in 3 weeks. [x] Normal UA Doppler today. Plan to repeat Doppler in 1 week with MFM and in 3 weeks with MFM. Afterwards if Doppler remains normal we will do Q 2 weeks. [x] Unable to do fasting and postprandial blood sugar checks - per patient glucometer was not covered by her insurance. CGM placed today in MFM office. MFM continue weekly review CGM reading and treat as appropriate if diagnosed with GDMA [x] Serial growth assessments Q 4 weeks after next growth (non-severe FGR) [x] testing to be initiated weekly at 32 weeks with NST / DVP and twice weekly at 36 with NST and weekly DVP We will do NST today at MFM office. Patient told me she already has a scheduled surveillance test in her primary OB office next week. Please let MFM team know if those test desire to be done with MFM office. [x] Mode of delivery [x] Anticipated spontaneous vaginal delivery [x] Delivery time for chronic hypertension controlled on medication delivery recommended early term/full term from 37 0/7 - 39 6/7 weeks of gestation. In settings of current non-severe FGR with normal Dopplers would recommend delivery at 38 0/7 weeks. This may be adjusted further depending on fetalgrowth and Doppler abnormalities. [x] Delivery planned at local hospital [x] Continue Lovenox 40 mg q.12 hours in , transitioning to full-dose anticoagulation with Lovenox 1.0 mg/kg b.i.d. for the duration 6 weeks . [x] Use SCDs in labor and , early activation of patient post delivery [x] Continue nutrition labs checks once in trimester and supplement as needed - per patient this has been done with primary OB Plan reviewed with patient. She vocalized understanding all questions answered. The patient is to continue with routine care in your office Thank you for allowing me to participate in her care. Please contact me if you have any concerns. Sana Lima MD, PhD, FACOG (she/hers) Maternal- Medicine [facility] [address] [place] [address] This document was created with [employer] (NOOM) technology. Though I make every effort to review the dictation as it is transcribed, on occasion the spoken word can be misinterpreted by the technology leading to inappropriate words, phrases, or sentences. This note is addressed to the requesting provider as a consultation for clinical guidance. Specificmedical abbreviations are occasionally used and those are generally approved by the [place]?Board of?Obstetrics and?Gynecology?as well as?Antonio???s abbreviations. The above plan of care was based solely on the diagnoses for which a consultation was requested. ?More frequent testing may be indicated based on her other medical/obstetrical conditions. The management of other or medical conditions is beyond the scope of requested consultation and will c ontinue to be followed by the primary drill rig operator or primary care provider. Note to patient: [...] Plan of Treatment DateTypeDepartmentCare Team (Latest Contact Info)Zeksdrvlhrr12/30/2025 2:15 PM ESTAppointment [facility] [address] [place] [phone] 09/17/2025 10:15 AM ESTOffice Visit [facility] [address] [facility] [address] [facility] [place] [address] Jalyn Vidal, DO [address] [address] 09/22/2025 3:15 PM ESTAppointment [facility] [address] [place] [address] documented as of this encounter Goals GoalPatient Goal TypeAssociated ProblemsRecent ProgressPatient-Stated?Author safe discharge to home Kate Malave RN Note: Evaluation of progress towards goal: safe transition from hospital to home with family support. documented as of this encounter Visit Diagnoses Diagnosis 31 weeks gestation of - Primary Poor growth affecting management of mother in third trimester, single or unspecified fetus H/O gastric bypass History of pulmonary embolism Personal history of venous thrombosis and embolism Chronic hypertension affecting documented in this encounter Additional Health Concerns AssessmentNoted TimePHQ-9 Depression Total Score: 3:05 PM EDT documented as of this encounter Care Teams Team MemberRelationshipSpecialtyStart DateEnd Date Riddhi Plata MD PCP - GeneralFamily Medicine12/09/23documented as of this encounter
--- OUTSIDE RECORDS SUMMARY | 2025-08-17 13:15 | XMS_ITS | Encounter Summary ---
Author Organization [employer] [email or web address] tem Address [id number] [address] [place] [address] Care Team Providers Care Law Researcher Name Role Phone Riddhi Plata MD Primary Care Provider [phone] Reason for Visit * OBGYN (Routine) - Pending ReviewSpecialtyDiagnoses / ProceduresReferred By ContactReferred To ContactMaternal and Medicine Diagnoses Pre-diabetes History of gestational diabetes in prior , currently History of Arlene-en-Y gastric bypass Chronic hypertension affecting Malnutrition following gastrointestinal surgery Procedures nonstress test - Maternal Medicine Sana Lima MD [address] [place] [address] Phone: tel: fax: Maternal- Medicine at [facility] [address] [place] [address] Phone: tel: fax: Referral IDStatusReasonStart DateExpiration DateVisits RequestedVisits [id number] Encounter Details DateTypeDepartmentCare Team (Latest Contact Info)Ejncaiqbaus75/08/2025 1:15 PM ESTSupport Visit Maternal- Medicine at [facility] [address] [place] [address] Class 3 severe obesity with body mass index (BMI) of 60.0 to 69.9 in adult, unspecified obesity type, unspecified whether serious comorbidity present ([facility]) (Primary Dx); Pre-diabetes; History of gestational diabetes in prior , currently ; History of Arlene-en-Y gastric bypass; Chronic hypertension affecting ; Malnutrition following gastrointestinal surgery; History of pulmonary embolism; H/O gastric bypass Social History Tobacco UseTypesPacks/DayYears UsedDateSmoking Tobacco: NeverSmokeless Tobacco: Never Tobacco Cessation:Counseling Given: Not Answered Alcohol UseStandard Drinks/WeekCommentsNot Currently0 (1 standard drink = 0.6 oz pure alcohol)socialAH UtilitiesAnswerDate RecordedIn the past 12 months has the [employer], gas, oil, or water [employer] threatened to shut off services in your [...] care, and heating?Not hard at all06/23/2025PHQ-2AnswerDate RecordedTotal Geryi055RAPARE - TransportationAnswerDate RecordedIn the past 12 months, [...] a household?No06/23/2025hildcareAnswerDate RecordedDo problems getting child and family services worker make it difficult for you to work or study?No06/23/2025 EmploymentAnswerDate FrnnkfxaMficgxezasQnhuhxr83/06/2019Hunger ScreeningAnswer Date RecordedWithin the past 12 months we worried whether our food would run out before we got money to buy more.Never True06/23/2025Within the past 12 months the food we bought just didn't last and we didn't have money to get more.Never True06/23/2025Purpose - LifeAnswerDate RecordedPurpose and direction in life Dzilezq69/27/2021Estimated Date of WrhulafxDefbxosiEwu55/06/2026Based on last menstrual period of 01/09/2025Sex and Gender InformationValueDate RecordedSex Assigned at XekvzPmewgb73/20/2022 9:31 PM ESTLegal LfbFzfisd91/06/2015 11:49 AM EDTGender KepuhgqmJtyanh11/20/2022 9:31 PM ESTSexual OrientationStraight 07/30/2022 9:31 PM ESTdocumented as of this encounter Last Filed Vital Signs Vital SignReadingTime TakenCommentsBlood Lsvwyoii317/7508/17/2025 2:16 PM EST done at office tnkhuXovaj7378/08/2025 2:15 PM ESTTemperature--Respiratory Rate16 08/17/2025 2:15 PM ESTOxygen Saturation--Inhaled Oxygen Concentration--Weight-- Height--Body Mass Index--documented in this encounter Progress Notes * Génesis Charles RN - 08/17/2025 1:15 PM EST Denies current cramping or contractions. Denies LOF, abnormal vaginal discharge or vaginal bleeding. +FM per patient. Denies headache, epigastric pain, visual disturbance or swelling. Instructed to notify physician if experiencing any of the following: intermittent low back pain abdominal or menstrual like cramping that is comes and goes or is constant vaginal pressure uterine contractions that are regular and timeable water breaks or feels a gush of fluid any vaginal bleeding that is heavier than a menstrual period decrease or absence of baby movement Advised to drink plenty of fluids, take all prescribed medications, and to keep all scheduled appointments documented in this encounter Plan of Treatment DateTypeDepartmentCare Team (Latest Contact Info)Xmrwtgncrkk40/30/2025 2:15 PM ESTAppointment [facility] - [facility] [address] [facility] [address] 09/17/2025 10:15 AM ESTOffice Visit [facility] [address] [facility] [place] [place] [address] Jalyn Vidal, DO [address] [address] 09/22/2025 3:15 PM ESTAppointment [facility] - [facility]ound [address] [place] [phone] documented as of this encounter Goals GoalPatient Goal TypeAssociated ProblemsRecent ProgressPatient-Stated?Author safe discharge to home Kate Malave RN Note: Evaluation of progress towards goal: safe transition from hospital to home with family support. documented as of this encounter Procedures Procedure NamePriorityDate/TimeAssociated DiagnosisCommentsFETAL NONSTRESS TEST Ockuzsb7208/21/2025 9:29 AM EST Pre-diabetes History of gestational diabetes in prior , currently History of Arlene-en-Y gastric bypass Chronic hypertension affecting Malnutrition following gastrointestinal surgery documented in this encounter Results * nonstress test - Maternal Medicine (08/21/2025 9:29 AM EST) Narrative [facility] - 08/21/2025 9:29 AM EST Patient Name: Shira Jett Patient : 1995 NST Objective Findings: Variability: Moderate Decelerations: None Accelerations: Yes Acoustic Stimulator: No Baseline: 135 BPM Uterine Irritability: Yes (not felt by pt) Contractions: Not present Comments: FKC, bleeding, and labor precautions reviewed and pt verbalizes understanding. Pt eating ice chips aand drinking cold water. Dr Lima here and looked at efm tracing and states pt is OKto be discharged. NST Interpretation: Nonstress Test Interpretation: Reactive (Sana Lima MD) ? NST performed by: Génesis Charles RN ?08/17/2025 ? Authorizing ProviderResult TypeResult StatusSana Lima MDOB GYNE ORDERABLESFinal ResultPerforming OrganizationAddressCity/State/ZIP CodePhone Number ASOBGYN documented in this encounter Visit Diagnoses Diagnosis Class 3 severe obesity with body mass index (BMI) of 60.0 to 69.9 in adult, unspecified obesity type, unspecified whether serious comorbidity present ([facility])- Primary Pre-diabetes Other abnormal glucose History of gestational diabetes in prior , currently with other poor obstetric history History of Arlene-en-Y gastric bypass Chronic hypertension affecting Malnutrition following gastrointestinal surgery Other and unspecified postsurgical nonabsorption History of pulmonary embolism Personal history of venous thrombosis and embolism H/O gastric bypass documented in this encounter Additional Health Concerns AssessmentNoted TimePHQ-9 Depression Total Score: 3:05 PM EDT documented as of this encounter Care Teams Team MemberRelationshipSpecialtyStart DateEnd Date Riddhi Plata MD PCP - GeneralFamily Medicine12/09/23documented as of this encounter
--- OUTSIDE RECORDS SUMMARY | 2025-08-24 14:26 | XMS_ITS | Encounter Summary ---
Author Organization [facility] tem Address [id number] [address] [place] [address] Care Team Providers Care Trimming Press Operator Name Role Phone Riddhi Plata MD Primary Care Provider [phone] Reason for Referral * Diagnostic Imaging (Routine) - Pending ReviewSpecialtyDiagnoses / Procedures Referred By ContactReferred To ContactMaternal and Medicine Diagnoses Obesity in , antepartum Intrauterine growth restriction affecting care of mother, unspecified trimester, not applicable or unspecified fetus Procedures US [facility] with or without consult Sana Lima MD [address] [place] [address] Phone: tel: fax: Maternal- Medicine at [facility] [address] [place] [address] Phone: tel: fax: Referral IDStatusReasonStart DateExpiration DateVisits RequestedVisits [id number] Reason for Visit * Diagnostic Imaging (Routine) - Pending ReviewSpecialtyDiagnoses / Procedures Referred By ContactReferred To ContactMaternal and Medicine Diagnoses Obesity in , antepartum Intrauterine growth restriction affecting care of mother, unspecified trimester, not applicable or unspecified fetus Procedures US [facility] with or without consult Sana Lima MD [address] [place] [address] Phone: tel: fax: Maternal- Medicine at [facility] [address] [place] [address] Phone: tel: fax: Referral IDStatusReasonStart DateExpiration DateVisits RequestedVisits [id number] Encounter Details DateTypeDepartmentCare Team (Latest Contact Info)Ralaoizoewd54/15/2025 2:26 PM EST - 08/24/2025 11:59 PM ESTHospital Encounter [facility] US Imaging [address] [place] [address] Obesity in , antepartum; Intrauterine growth restriction affecting care of mother, unspecified trimester, not applicable or unspecified fetus Discharge Disposition: Home Social History Tobacco UseTypesPacks/DayYears UsedDateSmoking Tobacco: NeverSmokeless Tobacco: NeverAlcohol UseStandard Drinks/WeekCommentsNot Currently0 (1 standard drink = 0.6 oz pure alcohol)InnaVirVax UtilitiesAnswerDate RecordedIn the past 12 months has the [employer], [employer], or water [employer] threatened to shut off services in your [...] care, and heating?Not hard at all06/23/2025PHQ-2AnswerDate RecordedTotal Fxsdn451 PRAPARE - TransportationAnswerDate RecordedIn the past 12 [...] part of a household?No06/23/2025hildcareAnswerDate RecordedDo problems getting residential child care counselor make it difficult for you to work or study?No06/23/2025 EmploymentAnswerDate QvuzeowxTwtlgxdphnAnxnqyt78/06/2019Hunger ScreeningAnswer Date RecordedWithin the past 12 months we worried whether our food would run out before we got money to buy more.Never True06/23/2025Within the past 12 months the food we bought just didn't last and we didn't have money to get more.Never True06/23/2025Purpose - LifeAnswerDate RecordedPurpose and direction in life Mxnnkdd09/27/2021Estimated Date of UrcshhwaMaicijzpKhg37/06/2026Based on last menstrual period of 01/09/2025Sex and Gender InformationValueDate RecordedSex Assigned at CmnivQpayet23/20/2022 9:31 PM ESTLegal ZfhFghauy06/06/2015 11:49 AM EDTGender LbvwkgczVunovc07/20/2022 9:31 PM ESTSexual OrientationStraight 07/30/2022 9:31 PM [...] the start of a meal 100 strip blood-glucose sensor (DEXCOM G7 SENSOR) device Indications:Severe obesity due to excess calories affecting in second trimester ([facility]),Hx of gastric bypass1 Device by miscellaneous route every 21 days for 30 days. 3 each / busPIRone (BUSPAR) 15 mg tablet Take 1 [...] by mouth in the morning. 90 tablet 109/ folic acid (FOLVITE) 400 MCG tablet Take 1 tablet (400 mcg total) by mouth in the morning. 30 tablet 6006/08/2025 labetaloL (NORMODYNE) 200 mg tablet Take 1 [...] Plan of Treatment DateTypeDepartmentCare Team (Latest Contact Info)Aviyhkjjzlb60/30/2025 2:15 PM ESTAppointment [facility] - [facility]ound [address] [place] [address] 09/17/2025 10:15 AM ESTOffice Visit [facility] Pul[facility]Sleep Medicine [address] [place] [address] Jalyn Vidal, DO [address] [address] 09/22/2025 3:15 PM ESTAppointment [facility] - Ultrasound [address] [place] [address] documented as of this encounter Goals GoalPatient Goal TypeAssociated ProblemsRecent ProgressPatient-Stated?Author safe discharge to home Kate Malave RN Note: Evaluation of progress towards goal: safe transition from hospital to home with family support. documented as of this encounter Procedures Procedure NamePriorityDate/TimeAssociated DiagnosisCommentsUS MFM LMTD OB, 1 OR MORE EGQNBNpaaboi68/15/2025 3:21 PM EST Obesity in , antepartum Intrauterine growth restriction affecting care of mother, unspecified trimester, not applicable or unspecified fetus documented in this encounter Results * US MFM LMTD OB, 1 OR MORE FETUS (08/24/2025 3:21 PM EST)Anatomical Region LateralityModalityOB-GYNUltrasoundSpecimen (Source)Anatomical Location / LateralityCollection Method / VolumeCollection TimeReceived Time08/24/2025 2:47 PM EST Narrative 08/24/2025 3:36 PM EST NAME: ??TARA PERKINS : 1995 SEX: F Accession Number: [id number] ORDERING PHYSICIAN: SANA LIMA REFERRING PHYSICIAN: GONZALEZ PASCAL Coding Procedures ? 93457: Ultrasound, uterus, real time with image documentation, limited one or more fetuses ? 48826: Doppler velocimetry, ; umbilical artery Indication IUGR-Poor growth, Bariatric surgery complicating , Obesity in , history of PE , History of gestational hypertension , History of prior with gestational diabetes , Supervision of high risk , Obesity in . History OB History ? 3. Para 2 ? H3W5W8G6 Current Cell free DNA ?low risk analysis Maternal Assessment Physical Exam ??Height 152 cm, 5 ft. Weight 107 kg, 235 lb. Initial weight 108 kg, 239 lb. BMI 45.90 kg/m??. Initial BMI ? 46.68 kg/m??. Weight gain -2 kg, -4 lb Method Transabdominal ultrasound examination. Wilder . Number of fetuses: 1 Dating LMP on: ?01/09/2025 GA by LMP ?32 w + 3 d SEBASTIAN by LMP: ?10/16/2025 Previous Ultrasound on: ?03/20/2025 Type of prior assessment: ?GA GA at prior assessment date ?9 w + 2 d GA by previous U/S ? 31 w + 5 d SEBASTIAN by previous Ultrasound: ?10/21/2025 Assigned: ?based on the LMP, selected on 05/29/2025 Assigned GA (weeks days) ? 32 w + 3 d Assigned SEBASTIAN: ??10/16/2025 General Evaluation Cardiac activity Present. FHR 136 bpm. Presentation: cephalic Placenta: Placental site: anterior, previously documented away from cervical os Amniotic fluid: Amount of AF: normal amount. MVP 5.3 cm Doppler Umbilical Artery: PI ?0.97 ?? 65% ? Ebbing PS ?-59.51 cm/s TAmax ??-40.45 ??cm/s MD ?-21.52 cm/s S / D ??2.77 ?57% ? Rita Impression Single live intrauterine with a working diagnosis of non-severe FGR at 32w 3d. Umbilical artery Doppler S/D ratio in normal range. Amniotic fluid MVP measures 5.3 cm. Recommendations Please see [facility] recommendations from prior clinical and/or ultrasound report documentation. The patient is scheduled in 2 week(s) for growth and Doppler. The patient is scheduled in 4 week(s) for Doppler and MVP. Subsequent follow up or other follow up as clinically determined by primary OB provider unless otherwise specified by MFM. Results forwarded to ordering provider so they can follow up with the patient as necessary. Procedure Note Sana Lima MD - 08/24/2025 NAME: TARA PERKINS : 1995 SEX: F Accession Number: [id number] ORDERING PHYSICIAN: SANA LIMA REFERRING PHYSICIAN: GONZALEZ PASCAL Coding Procedures 69952: Ultrasound, uterus, real time with image documentation, limited one or more fetuses 03480: Doppler velocimetry, ; umbilical artery Indication IUGR-Poor growth, Bariatric surgery complicating , Obesityin , history of PE , History of gestational hypertension , History of prior with gestationaldiabetes , Supervision of high risk , Obesity in . History OB History 3. Para 2 [id number] Current Cell free DNA low risk analysis Maternal Assessment Physical Exam Height 152 cm, 5 ft. Weight 107 kg, 235 lb. Initial kg, 239 lb. BMI 45.90 kg/m??. Initial BMI 46.68 kg/m??. Weight gain -2 kg, -4 lb Method Transabdominal ultrasound examination. Wilder . Number of fetuses: 1 Dating LMP on: 01/09/2025 GA by LMP 32 w + 3 d SEBASTIAN by LMP: 10/16/2025 Previous Ultrasound on: 03/20/2025 Type of prior assessment: GA GA at prior assessment date 9 w + 2 d GA by previous U/S 31 w + 5 d SEBASTIAN by previous Ultrasound: 10/21/2025 Assigned: based on the LMP, selected on 05/29/2025 Assigned GA (weeks days) 32 w + 3 d Assigned SEBASTIAN: 10/16/2025 General Evaluation Cardiac activity Present. FHR 136 bpm. Presentation: cephalic Placenta: Placental site: anterior, previously documented away fromcervical os Amniotic fluid: Amount of AF: normal amount. MVP 5.3 cm Doppler Umbilical Artery: PI 0.97 65% Ebbing PS -59.51 cm/s TAmax -40.45 cm/s MD -21.52 cm/s S / D 2.77 57% Rita Impression Single live intrauterine with a working diagnosis of non-severeFGR at 32w 3d. Umbilical artery Doppler S/D ratio in normal range. Amniotic fluid MVP measures 5.3 cm. Recommendations Please see [facility] recommendations from prior clinical and/or ultrasoundreport documentation. The patient is scheduled in 2 week(s) for growth and Doppler. The patient is scheduled in 4 week(s) for Doppler and MVP. Subsequent follow up or other follow up as clinically determined byprimary OB provider unless otherwise specified by [facility]. Results forwarded to ordering provider so they can follow up with thepatient as necessary. Authorizing ProviderResult TypeResult StatusSana Lima MDIMG ORDERABLESFinal Result documented in this encounter Visit Diagnoses Diagnosis Obesity in , antepartum Obesity complicating , childbirth, or the puerperium, antepartum condition or complication Intrauterine growth restriction affecting care of mother, unspecified trimester, not applicable or unspecified fetus documented in this encounter Additional Health Concerns AssessmentNoted TimePHQ-9 Depression Total Score: 3:05 PM EDT documented as of this encounter Care Teams Team MemberRelationshipSpecialtyStart DateEnd Date Riddhi Plata MD PCP - GeneralFamily Medicine12/09/23documented as of this encounter
--- NOTE | 2025-08-25 10:58 | US_ITS ---
[facility] [place] [address] Patient Name: MADDIE PACHECO MRN: [id number] date: 1995 Sex: F Assigned Patient Location: [facility] Current Patient Location: Accession/Order Number: [id number] Exam Date: 08/25/2025 11:00 Report Date: 08/25/2025 12:15 At the request of: GONZALEZ PASCAL DO Procedure: US OB BPP w non-stress BIOPHYSICAL PROFILE: CLINICAL INFORMATION: Primary hypertension. Preeclampsia in period COMPARISON: None There is a single live intrauterine gestation in breech presentation. The reported gestational age is 32 weeks 4 days. The heart rate measures 144 beats per minute. FINDINGS: TONE: 1 or more episodes of activity extension and flexion of extremity or opening and closing of the hand [Y] 2/2 GROSS BODY MOVEMENTS: 3 or more discrete body or limb movements [Y] 2/2 BREATHING MOVEMENTS: 1 or more episodes of breathing lasting at least 30 seconds [Y] 2/2 MELY: A single deepest vertical pocket of amniotic fluid greater than 2 cm [Y] 2/2 MELY: 12.9 cm Total score: 8/8 US/US OB BPP w non-stress IMPRESSION: NORMAL BIOPHYSICAL PROFILE . Impression dictated by: Lakshmi Harmon M.D. 08/25/2025 12:15 PM Dictation Location: [place] [address] Electronically authenticated by: [id number] Y Date: 08/25/2025 12:15
--- OUTSIDE RECORDS SUMMARY | 2025-08-25 10:59 | XMS_ITS | Clinical Summary ---
Author Organization [email or web address] Address [id number] [address] [place] [address] Care Team Providers Care Breaker Operator Name Role Phone Riddhi Plata MD Primary Care Provider [phone] Allergies Active AllergyReactionsCriticalityNoted DateCommentsSumatriptanAnaphylaxis,Other (See Comments)High11/28/2018 IMITREX FOR MIGRAINES Medications MedicationSigDispense QuantityRefillsLast FilledStart DateEnd DateStatus albuterol (PROVENTIL HFA;VENTOLIN HFA) 90 mcg/actuation inhaler Indications:Mild intermittent asthma, unspecified whether complicatedInhale 2 puffs every 4 (four) hours as needed for wheezing. 18 g 2Active citalopram (CeleXA) 20 mg tablet Indications:anxiety with depressionTake 1 tablet (20 mg total) by mouth nightly Indications: anxiousness associated with depression.Active cyanocobalamin (VITAMIN B-12) 1,000 mcg/mL injection Indications:History of Arlene-en-Y gastric bypass,Postsurgical malabsorption, Malnutrition following gastrointestinal surgery,B12 deficiencyInject 1 mL (1,000 mcg total) into the appropriate muscle every 30 (thirty) days. 3 mL 5Active syringe with needle (BD LUER-KARENA SYRINGE) 3 [...] mouth in the morning. 30 tablet 5Active enoxaparin (LOVENOX) 40 mg/0.4 mL syringe [...] hours as needed for pain Indications: pain.Active blood sugar diagnostic strip Indications:Pre-diabetes,20 weeks gestation of ,History of gestational diabetes in prior , currently 1 strip by other route as needed for high blood sugar. Strips that will be compatible with patient glucometer and supported by her insurance 100 strip 5Active blood sugar diagnostic strip Indications:Pre-diabetes,20 weeks gestation of ,History of gestational diabetes in prior , currently Check fingersticks 4 times daily, fasting and 1 hour after the start of a meal 100 strip 5Active blood-glucose sensor (DEXCOM G7 SENSOR) device Indications:Severe obesity due to excess calories affecting in second trimester ([facility]),Hx of gastric bypass1 Device by miscellaneous route every 21 days for 30 days. 3 each 101506Active Active Problems ProblemNoted DateDiagnosed DateH/O gastric csotni3812/30/2024Postsurgical gtrjhcfrixaqn88/22/2025Malnutrition following gastrointestinal rbpbjpl2712/30/2024 Class 3 severe obesity with body mass index (BMI) of 60.0 to 69.9 in adult 04/23/2024OSA on CPAP02/22/2023History of pulmonary cfuoinlu50/08/2022Family history of dpjbbplymz60/08/1330Igxjpd83/01/2019Estimated Date of DdcsndypPmtannbjIyq46/06/2026Based on last menstrual period of 01/09/2025 Resolved Problems ProblemNoted DateDiagnosed DateResolved DatePneumonia due to infectious organism, unspecified laterality, unspecified part of lung/ Gestational maroqpqy324Preeclampsia, xakiwt96 Encounters DateTypeDepartmentCare TqwvAfpqnhlwqlh33/16/2025Orders Only Maternal- Medicine at [facility] [address] [place] [address] Josie Corona, RN Poor growth affecting management of mother in third trimester, single or unspecified fetus (Primary Dx)08/24/2025 2:26 PM EST - 08/24/2025 11:59 PM EST Hospital Encounter [facility] US Imaging [address] [place] [phone] Obesity in , antepartum; Intrauterine growth restriction affecting care of mother, unspecified trimester, not applicable or unspecified fetus Discharge Disposition: Home12/15/2025Orders Only Maternal- Medicine at [facility] [address] [place] [address] Sana Rowe MD Severe obesity due to excess calories affecting in second trimester ([facility]) (Primary Dx); Hx of gastric xsuprg7308/24/20253476Xfbmmd40/08/2025 1:15 PM ESTSupport Visit Maternal- Medicine at [facility] [address] [place] [address] Class 3 severe obesity with body mass index (BMI) of 60.0 to 69.9 in adult, unspecified obesity type, unspecified whether serious comorbidity present ([facility]) (Primary Dx); Pre-diabetes; History of gestational diabetes in prior , currently ; History of Arlene-en-Y gastric bypass; Chronic hypertension affecting ; Malnutrition following gastrointestinal surgery; History of pulmonary embolism; H/O gastric szbeyz4808/17/2025 12:30 PM ESTOffice Visit Maternal- Medicine at [facility] [address] [place] [address] Sana Rowe MD 31 weeks gestation of (Primary Dx); Poor growth affecting management of mother in third trimester, single or unspecified fetus; H/O gastric bypass; History of pulmonary embolism; Chronic hypertension affecting ampuenfam40/08/2025 11:02 AM EST - 08/17/2025 11:59 PM ESTHospital Encounter [facility] US Imaging [address] [place] [address] Pre-diabetes; History of gestational diabetes in prior , currently ; History of Arlene-en-Y gastric bypass; Chronic hypertension affecting ; History of pre-eclampsia in prior , currently in second trimester Discharge Disposition: Home08/17/2025Documentation Maternal- Medicine at [facility] [address] [place] [address] Anne Pozo RN 08/17/2025Orders Only Maternal- Medicine at [facility] [address] [place] [address] Anne Pozo RN Pre-diabetes (Primary Dx); History of gestational diabetes in prior , currently ; History of Arlene-en-Y gastric bypass; Chronic hypertension affecting ; Malnutrition following gastrointestinal ylrkhfg6208/17/20251168Xxzame13/25/2025Refill [facility] General Surgery-Bariatric [address] [facility] [address] [place] [address] Moriah Lira PA-C History of Arlene-en-Y gastric bypass; Postsurgical malabsorption; Malnutrition following gastrointestinal surgery; B12 ikyeghucug53/20/2025Refill [facility] General [facility]-Bariatric [address] [facility] [address] [place] [address] Moriah Lira PA-C History of Arlene-en-Y gastric bypass; Postsurgical malabsorption; Malnutrition following gastrointestinal surgery; B12 qaohxebolt06/07/2025Telephone [facility] Pulmonary/Sleep Medicine [address] [place] [address] [address] [place] [address] Lyla Btut RN 07/09/2025 11:30 AM EDTOffice Visit Maternal- Medicine at [facility] [address] [place] [address] Sana Rowe MD Pre-diabetes (Primary Dx); 20 weeks gestation of ; History of gestational diabetes in prior , currently snbitvbn98/30/2025 9:45 AM EDT - 07/09/2025 11:59 PM EDTHospital Encounter [facility] US Imaging [address] [place] [address] 20 weeks gestation of ; Chronic hypertension affecting ; History of pre-eclampsia in prior , currently in second trimester; History of gestational diabetes in prior , currently in second trimester; History of prediabetes; Bariatric surgery status complicating , second trimester; Severe obesity due to excess calories affecting , antepartum ([facility]); History of maternal pulmonary embolus; Obstructive sleep apnea; History of gestational diabetes in prior , currently ; Depression affecting ; Anxiety disorder affecting , antepartum Discharge Disposition: Home07/09/2025Orders Only Maternal- Medicine at [facility] [address] [place] [address] Anne Pozo RN Pre-diabetes (Primary Dx); History of gestational diabetes in prior , currently ; History of Arlene-en-Y gastric bypass; Chronic hypertension affecting ; History of pre-eclampsia in prior , currently in second unbupjwtl52/30/0915Ddtxrh83/24/2025Telephone [facility] General Surgery-Bariatric [address] [facility] [address] [place] [address] Ken Manzo MD 06/25/2025Orders Only Maternal- Medicine at [address] [address] Winter Gibbons LPN History of gestational diabetes in prior , currently in second trimester (PrimaryDx); History of prediabetes; History of gestational diabetes in prior , currently amzgbqvc30/14/2025 4:05 AM EDT - 06/23/2025 9:28 [facility] [address] [place] [address] Spencer Melendez DO Kovach, Corie L, MD Abdominal pain of multiple sites (Primary Dx) Discharge Disposition: Home06/23/20257234Otmehy25/13/2025Telephone Maternal- Medicine at [place] [address] [place] [address] Winter Gibbons LPN 06/17/2025 10:39 AM EDT - 06/17/2025 12:10 PM EDTEmerC[facility] [address] [place] [address] Jaswinder Melvin MD Symptomatic cholelithiasis (Primary Dx) Discharge Disposition: Home06/17/20250592Eomrgt77/08/2025Telephone Maternal- Medicine at [address] [address] Edwige WinterWANG 06/16/2025Refill [facility] General Surgery-Bariatric [address] [facility] [place] [address] Moriah Lira PAPamelaC History of Arlene-en-Y gastric bypass; Postsurgical malabsorption; Malnutrition following gastrointestinal surgery; B12 czobbcujtk94/29/2025Orders Only Maternal- Medicine at [address] [address] Maisha Pratt MD History of Arlene-en-Y gastric bypass; Postsurgical malabsorption; Malnutrition following gastrointestinal surgery; Folate deficiency; Iron xhqcauktxz25/22/2025Results Follow-Up Maternal- Medicine at [address] [phone] Maisha Pratt MD B-type natriuretic peptide, CBC without diff, Comprehensive metabolic panel, Additional followed-upresults: 11:00 AM EDTOffice Visit Maternal- Medicine at [address] [address] Maisha Pratt MD History of maternal pulmonary embolus (Primary Dx); 20 weeks gestation of ; Chronic hypertension affecting ; History of pre-eclampsia in prior , currently in second trimester; History of gestational diabetes in prior , currently in second trimester; History of prediabetes; Bariatric surgery status complicating , second trimester; Severe obesity due to excess calories affecting , antepartum ([facility]); Obstructive sleep apnea; History of gestational diabetes in prior , currently ; Depression affecting ; Anxiety disorder affecting , nzurmktnmd22/19/2025 9:30 AM EDT - 05/29/2025 11:59 PM EDTHospital Encounter [facility] [address] [place] [phone] Screening, , for anatomic survey Discharge Disposition: Home05/29/2025Orders Only Maternal- Medicine at [facility] [address] [place] [address] Winter Gibbons LPN 20 weeks gestation of (Primary Dx); Chronic hypertension affecting ; History of pre-eclampsia in prior , currently in second trimester; History of gestational diabetes in prior , currently in second trimester; History of prediabetes; Bariatric surgery status complicating , second trimester; Severe obesity due to excess calories affecting , antepartum ([facility]); History of maternal pulmonary embolus; Obstructive sleep apnea; History of gestational diabetes in prior , currently ; Depression affecting ; Anxiety disorder affecting , dphyzkompn74/19/1477Mfbydj95/18/2025Orders Only Maternal- Medicine at [place] [address] [place] [address] Ref Prov, Not In System 05/28/2025bstract Maternal- Medicine at [facility] [address] [place] [address] Maisha Pratt MD 05/26/2025Refill [facility] General Surgery-[facility]ric [address] [facility] [address] [place] [address] Moriah Lira PA-C History of [...] (1 standard drink = 0.6 oz pure alcohol)[employer] Exchange UtilitiesAnswerDate RecordedIn the past 12 months has the [employer], gas, oil, or water [employer] threatened to shut off services in your [...] care, and heating?Not hard at all06/23/2025PHQ-2AnswerDate RecordedTotal Cxzyi946RAPARE - TransportationAnswerDate RecordedIn the past 12 months, [...] for you to work or study?No06/23/2025 EmploymentAnswerDate HpykkeewBbeycerjweVqihnkp98/06/2019Hunger ScreeningAnswer Date RecordedWithin the past 12 months we worried whether our food would run out before we got money to buy more.Never True06/23/2025Within the past 12 months the food we bought just didn't last and we didn't have money to get more.Never True06/23/2025Purpose - LifeAnswerDate RecordedPurpose and direction in life Axvqbxp08/27/2021Estimated Date of UigbyjcaWbvgmiupOrh68/06/2026ased on last menstrual period of 01/09/2025Sex and Gender InformationValueDate RecordedSex Assigned at VjzsyTfsgrl90/20/2022 9:31 PM ESTLegal KuhArscup53/06/2015 11:49 AM EDTGender NbrmozrkWgycxj45/20/2022 9:31 PM ESTSexual OrientationStraight 07/30/2022 9:31 PM EST Last Filed Vital Signs Vital SignReadingTime TakenCommentsBlood Okdjrjzi932/7508/17/2025 2:16 PM EST done at office flnfwZlfqe1907/08/2025 2:15 PM PWOYflertxoleu45.8 ??C (98.2 ??F) 06/23/2025 7:07 AM EDTRespiratory Igou511910/18/2024 2:15 PM ESTOxygen Saturation 99%06/23/2025 5:39 AM EDTInhaled Oxygen Concentration--Xdtpsx879.7 kg (235 lb 3.2 oz)07/09/2025 10:52 AM ANWNhzogx916.9 cm (5' 0.98 )07/09/2025 10:52 AM EDT Body Mass Index44.4607/09/2025 10:52 AM EDT Plan of Treatment DateTypeDepartmentCare Team (Latest Contact Info)Pjhqpulztvt13/30/2025 2:15 PM ESTAppointment [facility] [address] [facility] [place] [address] 09/17/2025 10:15 AM ESTOffice Visit [facility] [address] [place] [phone] Jalyn Vidal, DO [address] [address] 09/22/2025 3:15 PM ESTAppointment [facility] - Ultrasound [address] [facility] [place] [address] Health MaintenanceDue DateLast DoneCommentsDTaP,Tdap and Td Vaccines (7 - Td or Tdap), 01/14/1999, 10/23/1996, Additional history exists Depression Iqsztjblj06/dult BMI Follow Up Plan05/01/2025 05/01/2024Influenza Fqctwnh89/10/2018, 07/11/2011RSV ( or age 60+ yrs) (1 - Risk 1-dose series)08/21/2025dult BMI Screening Tobacco Nzwsrozhw58/04/2025Pap Smear06/10/2028 06/10/2025 Goals GoalPatient Goal TypeAssociated ProblemsRecent ProgressPatient-Stated?Author safe discharge to home Kate Malave, LEANDRO Note: Evaluation of progress towards goal: safe transition from hospital to home with family support. Medical Devices Not on file Procedures Procedure NamePriorityDate/TimeAssociated DiagnosisCommentsUS MFM LMTD OB, 1 OR MORE OBZIMEyuqtig31/15/2025 3:21 PM EST Obesity in , antepartum Intrauterine growth restriction affecting care of mother, unspecified trimester, not applicable or unspecified fetus NONSTRESS YASRLcfqwmf73/12/2025 9:29 AM EST Pre-diabetes History of gestational diabetes in prior , currently History of Arlene-en-Y gastric bypass Chronic hypertension affecting Malnutrition following gastrointestinal surgery [facility] OB FOLLOW-UP, 1 IKRZZCgjymyo88/08/2025 12:46 PM EST Pre-diabetes History of gestational diabetes in prior , currently History of Arlene-en-Y gastric bypass Chronic hypertension affecting History of pre-eclampsia in prior , currently in second trimester [facility] OB FOLLOW-UP, 1 MESKNZzggkwe35/30/2025 11:17 AM EDT 20 weeks gestation of Chronic hypertension affecting History of pre-eclampsia in prior , currently in second trimester History of gestational diabetes in prior , currently in second trimester History of prediabetes Bariatric surgery status complicating , second trimester Severe obesity due to excess calories affecting , antepartum ([facility]) History of maternal pulmonary embolus Obstructive sleep apnea History of gestational diabetes in prior , currently Depression affecting Anxiety disorder affecting , antepartum CT CTA YLPOMEZJU99/14/2025 8:40 AM EDT SNFPVLLTMZIZQR51/14/2025 5:20 AM EDT JAMBIGUPIG83/14/2025 4:21 AM EDT COMPREHENSIVE METABOLIC EJZCKXHMK33/14/2025 4:21 AM EDT CBC WITH AUTO VJUHKHWLBGMMGFCA59/14/2025 4:21 AM EDT US ABDOMEN QZDELPGY11/08/2025 11:31 AM EDT ER EXTRA DEQPUGVYN04/08/2025 11:24 AM EDT POCT NURSING URINE MACROSCOPIC LZLfdkwgx79/08/2025 11:09 AM EDT EXTRA TUBES BLUE ODRTlkwsmg92/08/2025 11:04 AM EDT EXTRA YURTRPafvamr39/08/2025 11:04 AM EDT COMPREHENSIVE METABOLIC CSZFXCRXB23/08/2025 11:04 AM EDT ZLOVKSKFSW85/08/2025 11:04 AM EDT CBC WITH AUTO CPJBETFUFXDOOZNX06/08/2025 11:04 AM EDT ANTI THROMBIN 3 VAWUEAeguqnn51/19/2025 1:48 PM EDT 20 weeks gestation of History of maternal pulmonary embolus PROTEIN C GUMPQIWWXznxpgn14/19/2025 1:48 PM EDT 20 weeks gestation of History of maternal pulmonary embolus PROTEIN S DVPWFAXCIqshcaq27/19/2025 1:48 PM EDT 20 weeks gestation of History of maternal pulmonary embolus IRON AND SMTGQqliffo62/19/2025 1:48 PM EDT 20 weeks gestation of Bariatric surgery status complicating , second trimester WBCCYFRNVbllwuj17/19/2025 1:48 PM EDT 20 weeks gestation of Bariatric surgery status complicating , second trimester BRYIJZEcjgxss98/19/2025 1:48 PM EDT 20 weeks gestation of Bariatric surgery status complicating , second trimester ZINC, IDPFRNjsunof29/19/2025 1:48 PM EDT 20 weeks gestation of Bariatric surgery status complicating , second trimester VITAMIN D 25 CCIAECUSookkvb19/19/2025 1:48 PM EDT 20 weeks gestation of Bariatric surgery status complicating , second trimester VITAMIN P18Kkszdiz61/19/2025 1:48 PM EDT 20 weeks gestation of Bariatric surgery status complicating , second trimester THIAMIN (VITAMIN B1), BQCauyrai86/19/2025 1:48 PM EDT 20 weeks gestation of Bariatric surgery status complicating , second trimester TOYQiloclc24/19/2025 1:48 PM EDT 20 weeks gestation of Chronic hypertension affecting URIC RMKGAlvsfha06/19/2025 1:48 PM EDT 20 weeks gestation of Chronic hypertension affecting PROTEIN CREAT ZXTIBIjoyrfs04/19/2025 1:48 PM EDT 20 weeks gestation of Chronic hypertension affecting COMPREHENSIVE METABOLIC SDUJFDsttxnj45/19/2025 1:48 PM EDT 20 weeks gestation of Chronic hypertension affecting CBC (NO DIFF)Gzkodpe4605/29/2025 1:48 PM EDT 20 weeks gestation of Chronic hypertension affecting B-TYPE NATRIURETIC VODKNHQVckciza11/19/2025 1:48 PM EDT 20 weeks gestation of Chronic hypertension affecting [facility] COMPREHENSIVE ANATOMIC YEPFUEPpfoflw00/19/2025 12:07 PM EDT Screening, , for anatomic survey US PREG LMTD 1 OR MORE JLKFTZerojkh45/18/2025 11:41 AM EDTUNLISTED LAB TEST Xfhcrpv8705/28/2025 11:15 AM EDTfrom Last 3 Months Results * [facility] LMTD OB, 1 OR MORE FETUS (08/24/2025 3:21 PM EST) Only the most recent of4 resultswithin the time period is included. Anatomical RegionLateralityModalityOB-GYNUltrasoundSpecimen (Source)Anatomical Location / LateralityCollection Method / VolumeCollection TimeReceived Time 08/24/2025 2:47 PM EST Narrative 08/24/2025 3:36 PM EST NAME: ??TARA PERKINS : 1995 SEX: F Accession Number: [id number] ORDERING PHYSICIAN: SANA ROWE REFERRING PHYSICIAN: GONZALEZ PASCAL Coding Procedures ? 72550: Ultrasound, uterus, real time with image documentation, limited one or more fetuses ? 94433: Doppler velocimetry, ; umbilical artery Indication IUGR-Poor growth, Bariatric surgery complicating , Obesity in , history of PE , History of gestational hypertension , History of prior with gestational diabetes , Supervision of high risk , Obesity in . History OB History ? 3. Para 2 ? D4M5Z0H6 Current Cell free DNA ?low risk analysis [...] Ebbing PS ?-59.51 cm/s TAmax ??-40.45 ??cm/s ?-21.52 cm/s S / D ??2.77 ?57% ? Rita Impression Single live intrauterine with a working diagnosis of non-severe FGR at 32w 3d. Umbilical artery Doppler S/D ratio in normal range. Amniotic fluid MVP measures 5.3 cm. Recommendations Please see [facility] recommendations from prior clinical and/or ultrasound report documentation. The patient is scheduled in 2 week(s) for growth and Doppler. The patient is scheduled in 4 week(s) for Doppler and MVP. Subsequent follow up or other follow up as clinically determined by primary OB provider unless otherwise specified by [facility]. Results forwarded to ordering provider so they can follow up with the patient as necessary. Procedure Note Sana Rowe MD - 08/24/2025 NAME: TARA PERKINS : 1995 SEX: F Accession Number: [id number] ORDERING PHYSICIAN: SANA ROWE REFERRING PHYSICIAN: GONZALEZ PASCAL Coding Procedures 14849: Ultrasound, uterus, real time with image documentation, limited one or more fetuses [address]4475: Doppler velocimetry, ; umbilical artery Indication IUGR-Poor growth, Bariatric surgery complicating , Obesityin , history of PE , History of gestational hypertension , History of prior with gestationaldiabetes , Supervision of high risk , Obesity in . History OB History 3. Para 2 C6R9C5K9 Current Cell free DNA low risk analysis Maternal Assessment Physical Exam Height 152 cm, 5 ft. Weight 107 kg, 235 lb. Initial habbwh332 kg, 239 lb. BMI 45.90 kg/m??. Initial [...] MVP measures 5.3 cm. Recommendations Please see M recommendations from prior clinical and/or ultrasoundreport documentation. [...] with thepatient as necessary. Authorizing ProviderResult TypeResult Marco VEGA US ORDERABLESFinal Result * nonstress test - Maternal Medicine (08/21/2025 [...] ice chips aand drinking cold water. Dr Rowe here and looked at efm tracing and states pt is OKto be discharged. NST Interpretation: Nonstress Test Interpretation: Reactive (Sana Rowe MD) ? NST performed by: Génesis Charles RN ?08/17/2025 ? Authorizing ProviderResult TypeResnehemias RODRIGUES GYNE ORDERABLESFinal ResultPerforming OrganizationAddressCity/State/ZIP CodePhone Number ASOBGYN * CT angiogram chest (06/23/2025 8:40 AM [...] on 06/23/2025 8:49 AM Authorizing ProviderResult TypeResult StatusCorie Naveen Dunlap [facility]IN[facility] [facility] ORDERABLES Final Result * Urinalysis (06/23/2025 5:20 AM EDT)ComponentValueRef RangeTest MethodAnalysis TimePerformed AtPathologist HblebloqhJQTQXJexmzbUukkek78/14/2025 6:36 AM EDT [facility] SOUTHTURBIDITYClearClear06/23/2025 6:36 AM EDT [facility] GRAVITY1.0201.003 - 1.035 06/23/2025 6:36 AM [facility] DAYTONNITRITENegative Uwlzdkwc01/14/2025 6:36 AM [facility]TONPH,URINE6.0 5.0 - 8.510 6:36 AM [facility] DAYTONLEUKOCYTE FKRXKYDASouhcmqwHthvdevw87/14/2025 6:36 AM EDMIDDLETOWN HOSPITALPROTEINNegativeNegative06/23/2025 6:36 AM EDMIDDLETOWN HOSPITALKETONES (URINE)WvnkypylBgqzqcoj56/14/2025 6:36 AM EDT [facility] SOUTHUROBILINOGEN1.0 eu/dL0.2 eu/dL, 1.0 eu/dL 06/23/2025 6:36 AM EDMIDDLETOWN HOSPITALBILIRUBIN (URINE) SgcgfexqPxcovmjb95/14/2025 6:36 AM [facility] BLOOD/SPUUclmpumsMrgmwhhw56/14/2025 6:36 AM EDMIDDLETOWN HOSPITALGLUCOSE (URINE)NegativeNegative, 250 mg/dL06/23/2025 6:36 AM EDT [facility] HEALTHpecimen (Source)Anatomical Location / LateralityCollection Method / VolumeCollection TimeReceived TimeUrineUrine specimen collection, clean catch / Asvoxnf9406/23/2025 5:20 AM EDT1 6:32 AM EDT Narrative Authorizing ProviderResult TypeResult StatusCojyoti UNGER ORDERABLES Final ResultPerforming OrganizationAddressCity/State/ZIP CodePhone Number [facility] [address] [place] [address], * (ABNORMAL) CBC auto differential (06/23/2025 4:21 AM EDT) Only the most recent of2 resultswithin the time period is included. ComponentValueRef RangeTest MethodAnalysis TimePerformed AtPathologist Signature WBC9.74 - 11 x10E9/L1 4:49 AM EDMIDDLETOWN HOSPITALRBC Count3.38(L)3.8 - 5.2 X10E12/L1 4:49 AM EDTPWESTERN RESERVE HOSPITALHemoglobin10.6(L)11.7 - 15.5 g/dL06/23/2025 4:49 AM EDMIDDLETOWN HOSPITALHematocrit29.9(L)35 - 47 %06/23/2025 4:49 AM EDTPWESTERN RESERVE HOSPITALMCV8880 - 100 fL06/23/2025 4:49 AM EDTPWESTERN RESERVE HOSPITALMCH31.327 - 34 pg06/23/2025 4:49 AM EDTPWESTERN RESERVE HOSPITALMCHC35.332 - 36 g/dL06/23/2025 4:49 AM EDMIDDLETOWN HOSPITALRDW13.011.5 - 15 %06/23/2025 4:49 AM EDMIDDLETOWN HOSPITALPlatelet Mtwah305196 - 450 X10E9/L1 4:49 AM EDT [facility] SOUTHMPV7.87 - 12 fL06/23/2025 4:49 AM EDT [facility] SOUTHNeutrophils %69.6%06/23/2025 4:49 AM EDT [facility] SOUTHLymphocytes %24.9%06/23/2025 4:49 AM EDT [facility]OS[facility]ITALMonocytes %4.0%06/23/2025 4:49 AM EDT [facility] HOSPITALEosinophils %1.1%06/23/2025 4:49 AM EDT [facility]ophils %0.4%06/23/2025 4:49 AM EDT [facility]Neutrophils Absolute (A)6.8(H)1.5 - 6.6 10*3/uL06/23/2025 4:49 AM [facility]TONLymphocytes Absolute2.41.0 - 3.5 10*3/uL06/23/2025 4:49 AM [facility]TP[facility] HOSPITALMonocytes Absolute0.40.0 - 0.9 10*3/uL06/23/2025 4:49 AM [facility]ALEosinophils Absolute0.10.0 - 0.4 10*3/uL06/23/2025 4:49 AM [facility]Basophils Absolute0.00.0 - 0.2 10*3/uL 06/23/2025 4:49 AM [facility]TONDifferential Type AUTOMATED YJGQJPVOEWKG08/14/2025 4:49 AM [facility] Specimen (Source)Anatomical Location / LateralityCollection Method / Volume Collection TimeReceived TimeBloodVenous blood / UnknownVenipuncture / Unknown 06/23/2025 4:21 AM EDT1 4:44 AM EDT Narrative Authorizing ProviderResult TypeResult StatusJesse Lou TRIPP BLOOD ORDERABLES Final ResultPerforming OrganizationAddressCity/State/ZIP CodePhone Number [facility] [address] [place] [address], [place] * Lipase (06/23/2025 4:21 AM EDT) Only the most recent of2 resultswithin the time period is included. ComponentValueRef RangeTest MethodAnalysis TimePerformed AtPathologist Signature MJNAKC6898 - 40 U/L1 5:02 AM [facility] Specimen (Source)Anatomical Location / LateralityCollection Method / Volume Collection TimeReceived TimeBloodVenous blood / UnknownVenipuncture / Unknown 06/23/2025 4:21 AM EDT1 4:44 AM EDT Narrative Authorizing ProviderResult TypeResult StatusJesse Lou Melendez [facility] BLOOD ORDERABLES Final ResultPerforming OrganizationAddressCity/State/ZIP CodePhone Number [facility] [address] [place] [address], * (ABNORMAL) Comprehensive metabolic panel (06/23/2025 4:21 AM EDT) Only the most recent of3 resultswithin the time period is included. ComponentValueRef RangeTest MethodAnalysis TimePerformed AtPathologist Signature [id number] - 146 mmol/L1 5:05 AM [facility]TONPOTASSIUM3.93.5 - 5.0 mmol/L1 5:05 AM [facility] DAYTONCHLORIDE10898 - 109 mmol/L1 5:05 AM [facility] DAYTONCARBON OFFCECY36(L)22 - 32 mmol/L1 5:05 AM EDT [facility]ANION GAP85 - 15 mmol/L1 5:05 AM EDT [facility]BLOOD UREA SLJPHRLK36 - 23 mg/dL06/23/2025 5:05 AM [facility] DAYTONCREATININE0.440.40 - 1.00 mg/dL 06/23/2025 5:05 AM [facility]TONComment:METHOD TRACEABLE TO IDMS ZDDNDDFPLYUFLDC0078 - 99 mg/dL06/23/2025 5:05 AM [facility] DAYTONCALCIUM8.78.5 - 10.5 mg/dL06/23/2025 5:05 AM EDT [facility]TOTAL PROTEIN6.36.0 - 8.0 g/dL06/23/2025 5:05 AM [facility] DAYTONALBUMIN3.1(L)3.2 - 5.3 g/dL06/23/2025 5:05 AM [facility] DAYTONALKALINE QMCMVZCTFTC7398 - 130 U/L 06/23/2025 5:05 AM [facility] DAYTONAST11<=41 U/L1 5:05 AM [facility]TONALT16<=31 U/L1 5:05 AM [facility] DAYTONBILIRUBIN,TOTAL0.50.3 - 1.2 mg/dL 06/23/2025 5:05 AM [facility] DAYTONEGFR Non-Race Dependent >90>=60 ml/min/1.73sq.m1 5:05 AM [facility] Comment: eGFR not reported due to non-numeric value for Creatinine. Reported eGFR is based on the CKD-EPI 2020 equation that does not use a race coefficient. Specimen (Source)Anatomical Location / LateralityCollection Method / Volume Collection TimeReceived TimeBloodVenous blood / UnknownVenipuncture / Unknown 06/23/2025 4:21 AM EDT1 4:44 AM EDT Narrative Authorizing ProviderResult TypeResult StatusJesse Lou Melendez [facility] BLOOD ORDERABLES Final ResultPerforming OrganizationAddressCity/State/ZIP CodePhone Number [facility] [address] [place] [address], [place] * Ultrasound abdomen limited (06/17/2025 11:31 [...] 11:35 AM Authorizing ProviderResult TypeResult StatusJaswinder Melvin MDTrini US ORDERABLES Final Result * Er Extra Urine (06/17/2025 11:24 AM EDT)ComponentValueRef RangeTest Method Analysis TimePerformed AtPathologist SignatureExtra TubeAuto Resulted 06/17/2025 1:01 PM EDTPROMEDSCRIPPS [facility]CY HOSPITALpecimen (Source) Anatomical Location / LateralityCollection Method / VolumeCollection Time Received TimeUrineUrine / UnknownCollection / Rwpwlxb5506/17/2025 11:24 AM EDT 06/17/2025 11:24 AM EDT Narrative Authorizing ProviderResult TypeResult StatusJaswinder UNGER ORDERABLES Final ResultPerforming OrganizationAddressCity/State/ZIP CodePhone Number [facility] [address] [place] [address], [place] * POCT Nursing Urine Macroscopic UA (06/17/2025 11:09 AM EDT)ComponentValueRef RangeTest MethodAnalysis TimePerformed AtPathologist [facility] Urine Specific Gravity1.0251.010, 1.015, 1.020, 1.8416506/17/2025 11:[address] [facility] Urine Leukocyte EsteraseNegative Gnqaagcv79/08/2025 [facility]rine RzjxqdjEopavnpuTnqqmzpq85/08/2025 11:10 [facility] Urine pH6.55.0, 6.0, 6.5, 7.0, 7.5, 8.0, 8.5, 5.510 11:10 AM [facility] Urine ProteinNegativeNegative 06/17/2025 11:10 AM [facility] Urine Glucose DoinpvjwChpbbzug38/08/2025 11:10 AM [facility] Urine NuodefeQmjpcjneCadaukff57/08/2025 11:10 AM [facility] Urine Urobilinogen2.0 E.U./dL06/17/2025 11:10 AM [facility] Urine RbelrrrhzXfqkffnbXwjagbqj76/08/2025 11:10 AM [facility] Urine Blood/HGBNegativeNegative 06/17/2025 11:10 AM [facility] Centerimen (Source) Anatomical Location / LateralityCollection Method / VolumeCollection Time Received YlnqSdjgb55/08/2025 11:09 AM EDT1 11:10 AM EDT Narrative Authorizing ProviderResult TypeResult StatusJaswinder Melvin MDPOINT OF CARE TEST ORDERABLESFinal ResultPerforming OrganizationAddressCity/State/ZIP CodePhone Number [address] [address], * Light Blue Top (06/17/2025 11:04 AM EDT)ComponentValueRef RangeTest Method Analysis TimePerformed AtPathologist SignatureExtra TubeAuto Resulted 06/17/2025 1:[address] [facility]ENTERpecimen (Source) Anatomical Location / LateralityCollection Method / VolumeCollection Time Received TimeBloodVenous blood / Aiyurcl8406/17/2025 11:04 AM EDT1 11:12 AM EDT Narrative Authorizing ProviderResult TypeResult StatusJaswinder Melvin MDLAB BLOOD ORDERABLES Final ResultPerforming OrganizationAddressCity/State/ZIP CodePhone Number [address] [place] [address], * Thiamin (Vitamin B1), WB (05/29/2025 1:48 PM EDT)ComponentValueRef RangeTest MethodAnalysis TimePerformed AtPathologist SignatureTHIAMIN (VITAMIN B1), [place] [address] - 180 nmol/L06/02/2025 2:13 PM [facility] LABORATORIESComment: ADDITIONAL INFORMATION This test was developed and its performance characteristics determined by [facility] in a manner consistent with CLIA requirements. This test has not been cleared or approved by the U.S. Food and Drug Administration. Test Performed by: [facility] - [address] [address] Private Household Worker: Jayce Daniels Ph.D.; CLIA# [id number] Specimen (Source)Anatomical Location / LateralityCollection Method / Volume Collection TimeReceived TimeBloodVenous blood / UnknownVenipuncture / Unknown 05/29/2025 1:48 PM EDT05/29/2025 1:48 PM EDT Narrative Authorizing ProviderResult TypeResult StatusMaisha Pratt TNLAB BLOOD ORDERABLES Final ResultPerforming OrganizationAddressCity/State/ZIP CodePhone Number [facility] [address] [place] [address], * Zinc, Serum (05/29/2025 1:48 PM EDT)ComponentValueRef RangeTest MethodAnalysis TimePerformed AtPathologist SignatureZINC, S6260 - 106 mcg/dL05/30/2025 2:14 PM [facility] LABORATORIESComment: ADDITIONAL INFORMATION This test was developed and its performance characteristics determined by [facility] in a manner consistent with CLIA requirements. This test has not been cleared or approved by the U.S. Food and Drug Administration. Test Performed by: [facility] - [place] [id number] [place] [address] Private Household Worker: Jayce Daniels Ph.D.; CLIA# [id number] Specimen (Source)Anatomical Location / LateralityCollection Method / Volume Collection TimeReceived TimeBloodVenous blood / UnknownVenipuncture / Unknown 05/29/2025 1:48 PM EDT05/29/2025 1:48 PM EDT Narrative Authorizing ProviderResult TypeResult [facility] CenterLAB BLOOD ORDERABLES Final ResultPerforming OrganizationAddressCity/State/ZIP CodePhone Number [facility] [address] [place] [address], [place] * Protein creat ratio (05/29/2025 1:48 PM EDT)ComponentValueRef RangeTest Method Analysis TimePerformed AtPathologist SignatureURINE PROTEIN, RANDOM (MG/L)110 <120 mg/L05/29/2025 3:58 PM [facility] LABORATORYURINE CREATININE,GAC732.80mg/dL05/29/2025 3:58 PM [facility] LABORATORYU/PRO/DANCING INSTRUCTOR RATIO CALC0.08<=0. 3:58 PM [facility] LABORATORYSpecimen (Source)Anatomical Location / LateralityCollection Method / VolumeCollection TimeReceived TimeUrineUrine specimen collection, clean catch / UnknownCollection / Lsepiyt6805/29/2025 1:48 PM EDT05/29/2025 1:48 PM EDT Narrative [facility] - 05/29/2025 3:58 PM EDT Nephrotic Syndrome is associated with ratios >3.5 Authorizing ProviderResult TypeResult StatusMaisha UNGER ORDERABLESFinal ResultPerforming OrganizationAddressCity/State/ZIP CodePhone Number [facility] [address] [place] [address], * LDH (05/29/2025 1:48 PM EDT)ComponentValueRef RangeTest MethodAnalysis Time Performed AtPathologist AsakxtutbPYO561463 - 235 U/L05/29/2025 3:58 PM EDT [facility] LABORATORYSpecimen (Source)Anatomical Location / LateralityCollection Method / VolumeCollection TimeReceived TimeBloodVenous blood / UnknownVenipuncture / Ctsmosl2405/29/2025 1:48 PM EDT05/29/2025 1:48 PM EDT Narrative Authorizing ProviderResult TypeResult StatusMaisha GILBERT BLOOD ORDERABLES Final ResultPerforming OrganizationAddressty/State/ZIP CodePhone Number [facility] [address] [place] [address], * (ABNORMAL) Iron and TIBC (05/29/2025 1:48 PM EDT)ComponentValueRef RangeTest MethodAnalysis TimePerformed AtPathologist IybwlxvpiDQUY8488 - 170 ug/dL 05/29/2025 3:58 PM [facility] TXHYWQHJWUAXZQPEKUKJE319715 - 336 mg/dL05/29/2025 3:58 PM [facility] LABORATORYIRON BINDING 465(H)250 - 425 ug/dL05/29/2025 3:58 PM [facility] IRON KMFZPTIWTG8660 - 50 % XLLTPOFBBK34/19/2025 3:58 PM [facility] LABORATORYSpecimen (Source)Anatomical Location / LateralityCollection Method / VolumeCollection TimeReceived TimeBloodVenous blood / Unknown Venipuncture / Hofmcij8105/29/2025 1:48 PM EDT05/29/2025 1:48 PM EDT Narrative Authorizing ProviderResult TypeResult StatusSt. Francis Medical CenterLAB BLOOD ORDERABLES Final ResultPerforming OrganizationAddressCity/State/ZIP CodePhone Number [facility] [address] [place] [address], * (ABNORMAL) Vitamin D 25 hydroxy (05/29/2025 1:48 PM EDT)ComponentValueRef RangeTest MethodAnalysis TimePerformed AtPathologist SignatureVITAMIN D 25 HYD TOT27.1(L)30.0 - 100.0 ng/mL05/29/2025 4:18 PM [facility] LABORATORYSpecimen (Source)Anatomical Location / LateralityCollection Method / VolumeCollection TimeReceived TimeBloodVenous blood / UnknownVenipuncture / Zawxylp0005/29/2025 1:48 PM EDT05/29/2025 1:48 PM EDT Narrative [facility] - 05/29/2025 4:18 PM EDT Vitamin D status 25 [place] Vitamin D Deficiency <20 ng/mL Insufficiency ? 20-29 ng/mL Sufficiency ? 30-100 ng/mL Toxicity >100 ng/mL NOTE: A pediatric reference range has not been established by the mechanic welder of this kit. The [place] [employer] recommends a Vitamin D level of = or >20ng/mL in infants and children. Authorizing ProviderResult TypeResult StatusIra [facility] Mental Health CenterLAB BLOOD ORDERABLES Final ResultPerforming OrganizationAddressCity/State/ZIP CodePhone Number [facility] [address] [place] [address], * (ABNORMAL) Protein S activity (05/29/2025 1:48 PM EDT)ComponentValueRef Range Test MethodAnalysis TimePerformed AtPathologist SignaturePROTEIN S AYGDJUTV40 (L)64 - 149 %06/05/2025 9:14 AM [facility] LABORATORYComment: Oral contraceptives, hormonal therapy, [...] 1:48 PM EDT Narrative Authorizing ProviderResult TypeResult [facility] BLOOD ORDERABLES Final ResultPerforming OrganizationAddressCity/State/ZIP CodePhone Number [facility] [address] [place] [address], * Protein C activity (05/29/2025 1:48 PM EDT)ComponentValueRef RangeTest Method Analysis TimePerformed AtPathologist SignaturePROTEIN C BJDURVJD59197 - 140 % 06/05/2025 9:14 AM [facility] LABORATORYSpecimen (Source) Anatomical Location / LateralityCollection Method / VolumeCollection Time Received TimeBloodVenous blood / UnknownVenipuncture / Yxfnzxi6905/29/2025 1:48 PM EDT05/29/2025 1:48 PM EDT Narrative Authorizing ProviderResult TypeResult [facility] BLOOD ORDERABLES Final ResultPerforming OrganizationAddressty/State/ZIP CodePhone Number [facility] [address] [place] [address], * Anti thrombin 3 funct (05/29/2025 1:48 PM EDT)ComponentValueRef RangeTest MethodAnalysis TimePerformed AtPathologist SignatureANTI THROMBIN 3 KFBRP9266 - 128 %06/05/2025 9:14 AM [facility] LABORATORYSpecimen (Source)Anatomical Location / LateralityCollection Method / VolumeCollection TimeReceived TimeBloodVenous blood / UnknownVenipuncture / Dpjaejj1605/29/2025 1:48 PM EDT05/29/2025 1:48 PM EDT Narrative Authorizing ProviderResult TypeResult Lara GILBERT BLOOD ORDERABLES Final ResultPerforming OrganizationAddressCity/State/ZIP CodePhone Number [facility] [address] [place] [address], * (ABNORMAL) CBC without diff (05/29/2025 1:48 PM EDT)ComponentValueRef Range Test MethodAnalysis TimePerformed AtPathologist SignatureWBC9.84 - 11 x10E9/L 05/29/2025 3:30 PM [facility] LABORATORYRBC Count3.813.8 - 5.2 X10E12/L05/29/2025 3:30 PM [facility] Mdjrmfgxyi15.811.7 - 15.5 g/dL05/29/2025 3:30 PM [facility] GNXGSBLDWAPozjcjjwrv28.8(L)35 - 47 %05/29/2025 3:30 PM [facility] DKCQIXTNSSDXV2219 - 100 fL05/29/2025 3:30 PM [facility] WANNYRWWFGCZG29.927 - 34 pg05/29/2025 3:30 PM [facility] FKMWJAQRLEKBFO09.832 - 36 g/dL05/29/2025 3:30 PM [facility] TPRJRCRSFBCPK95.511.5 - 15 %05/29/2025 3:30 PM [facility] LABORATORYPlatelet Sndaq986861 - 450 X10E9/L05/29/2025 3:30 PM EDT [facility] LABORATORYMPV8.47 - 12 fL05/29/2025 3:30 PM [facility] LABORATORYSpecimen (Source)Anatomical Location / Laterality Collection Method / VolumeCollection TimeReceived TimeBloodVenous blood / UnknownVenipuncture / Ptfsulc1405/29/2025 1:48 PM EDT05/29/2025 1:48 PM EDT Narrative Authorizing ProviderResult TypeResult StatusIra Pratt MDLAB BLOOD ORDERABLES Final ResultPerforming OrganizationAddressCity/State/ZIP CodePhone Number [facility] [address] [place] [address], * Uric acid (05/29/2025 1:48 PM EDT)ComponentValueRef RangeTest MethodAnalysis TimePerformed AtPathologist SignatureURIC ACID4.42.6 - 7.2 mg/dL05/29/2025 3:58 PM [facility] LABORATORYSpecimen (Source)Anatomical Location / LateralityCollection Method / VolumeCollection TimeReceived Time BloodVenous blood / UnknownVenipuncture / Acqlwga5405/29/2025 1:48 PM EDT 05/29/2025 1:48 PM EDT Narrative Authorizing ProviderResult TypeResult [facility]LAB BLOOD ORDERABLES Final ResultPerforming OrganizationAddressCity/State/ZIP CodePhone Number [facility] [address] [place] [address], * B-type natriuretic peptide (05/29/2025 1:48 PM EDT)ComponentValueRef RangeTest MethodAnalysis TimePerformed AtPathologist PcfcpwntxUIQ74<=100 pg/mL05/29/2025 4:03 PM [facility] LABORATORYSpecimen (Source)Anatomical Location / LateralityCollection Method / VolumeCollection TimeReceived Time BloodVenous blood / UnknownVenipuncture / Fcdmqrl5505/29/2025 1:48 PM EDT 05/29/2025 1:48 PM EDT Narrative Authorizing ProviderResult TypeResult StatusSt. [facility] CenterLAB BLOOD ORDERABLES Final ResultPerforming OrganizationAddressCity/State/ZIP CodePhone Number [facility] [address] [place] [address], * Folate (05/29/2025 1:48 PM EDT)ComponentValueRef RangeTest MethodAnalysis Time Performed AtPathologist SignatureFOLIC ACID13.3>5.8 ng/mL05/29/2025 4:18 PM [facility] LABORATORYSpecimen (Source)Anatomical Location / LateralityCollection Method / VolumeCollection TimeReceived TimeBloodVenous blood / UnknownVenipuncture / Xbxnoed8405/29/2025 1:48 PM EDT05/29/2025 1:48 PM EDT Narrative Authorizing ProviderResult TypeResult Lara Pratt MDLAB BLOOD ORDERABLES Final ResultPerforming OrganizationAddressCity/State/ZIP CodePhone Number [facility] [address] [place] [address], * Ferritin (05/29/2025 1:48 PM EDT)ComponentValueRef RangeTest MethodAnalysis TimePerformed AtPathologist UpmxpmoroVGBLDXZG1864 - 307 ng/mL05/29/2025 4:12 PM [facility] LABORATORYSpecimen (Source)Anatomical Location / LateralityCollection Method / VolumeCollection TimeReceived TimeBloodVenous blood / UnknownVenipuncture / Cimodka5805/29/2025 1:48 PM EDT05/29/2025 1:48 PM EDT Narrative Authorizing ProviderResult TypeResult Lara Pratt MDLAB BLOOD ORDERABLES Final ResultPerforming OrganizationAddressCity/State/ZIP CodePhone Number [facility] [address] [place] [address], [place] [phone] * Vitamin B12 (05/29/2025 1:48 PM EDT)ComponentValueRef RangeTest MethodAnalysis TimePerformed AtPathologist SignatureVITAMIN S03818716 - 914 pg/mL05/29/2025 4:20 PM [facility] LABORATORYSpecimen (Source)Anatomical Location / LateralityCollection Method / VolumeCollection TimeReceived Time BloodVenous blood / UnknownVenipuncture / Ypbouaa1905/29/2025 1:48 PM EDT 05/29/2025 1:48 PM EDT Narrative Authorizing ProviderResult TypeResult Lara Pratt MDLAB BLOOD ORDERABLES Final ResultPerforming OrganizationAddressCity/State/ZIP CodePhone Number [facility] [address] [place] [address], * Ultrasound limited 1 or more fetus [...] (Latest Code Status on File) Date ActivatedDate KcltuizoiijZlovxqky08/14/2025 9:38 AM06/23/2025 11:46 AM * Full Code Date ActivatedDate InactivatedComments04/23/2024 11:06 AM04/24/2024 4:47 PM * Full Code Date ActivatedDate BfopoiwwwsjHktczwzl21/20/2022 11:42 PM07/31/2022 2:48 PM * Full Code Date ActivatedDate InactivatedComments11/24/2018 10:44 PM11/27/2018 4:48 PM Care Teams Team MemberRelationshipSpecialtyStart DateEnd Date Riddhi Plata MD PCP - GeneralFatnly Medicine12/09/23
--- OUTSIDE RECORDS SUMMARY | 2025-08-25 10:59 | XMS_ITS | Encounter Summary ---
Author Organization [facility] Address [address] [place] [address] Care Team Providers Care Cardiovascular Surgeon Name Role Phone Riddhi Plata MD Primary Care Provider [phone] Encounter Details DateTypeDepartmentCare Team (Latest Contact Info)Oclnbiepyjt97/03/2025Telephone [facility] [address] [place] [address] Roseanne Jones MA Social History Tobacco UseTypesPacks/DayYears UsedDateSmoking Tobacco: NeverSmokeless Tobacco: NeverAlcohol UseStandard Drinks/WeekCommentsNever0 (1 standard drink = 0.6 oz pure alcohol)Caffeine intake: 1-2 cups per day coffeeEstimated Date of IraiqeeqXadddfwjJol19/06/2026ased on last menstrual period of 01/09/2025Sex and Gender InformationValueDate RecordedSex Assigned at BirthNot on fileLegal Sex Pbnlmr0111/22/2022 9:44 PM EDTGender IdentityNot on fileSexual OrientationNot on filedocumented as of this encounter Miscellaneous Notes * Telephone Encounter - Roseanne Jones MA - 08/12/2025 12:11 PM EST Pt requesting refills on celexa. Pharmacy confirmed and medication sent. documented in this encounter Plan of Treatment DateTypeDepartmentCare Team (Latest Contact Info)Hklrslirknh37/17/2025 11:20 AM ESTRoutine [facility] [address] [place] [address] Winter English PA [address] [address] documented as of this encounter Goals GoalPatient Goal TypeAssociated ProblemsRecent ProgressPatient-Stated?Author Help patient manage antidepressant medication Care PlanPatient on antidepressant monitoring Riddhi Mcdonald MD Baseline PHQ-9 Care PlanBaseline PHQ-9Riddhi Lerma, MDdocumented as of this encounter Visit Diagnoses Diagnosis Anxiety Anxiety state, unspecified documented in this encounter Additional Health Concerns Active ProblemsNoted DateDiagnosed DatePatient on antidepressant monitoring plan 4Baseline PHQ-904documented as of this encounter Care Teams Team MemberRelationshipSpecialtyStart DateEnd Date Riddhi Plata MD [address] [place] [address] PCP - GeneralFamily Medicine01/16/23documented as of this encounter
--- OUTSIDE RECORDS SUMMARY | 2025-08-25 10:59 | XMS_ITS | Encounter Summary ---
Author Organization [facility] tem Address [id number] [address] [place] [address] Care Team Providers Care Lead Caster Name Role Phone Riddhi Plata MD Primary Care Provider [phone] Encounter Details DateTypeDepartmentCare Team (Latest Contact Info)Aqyenszlymk97/08/2025 Documentation Maternal- Medicine at [facility] [address] [facility] [place] [place] [phone] Anne Pozo, LEANDRO Social History Tobacco UseTypesPacks/DayYears UsedDateSmoking Tobacco: NeverSmokeless Tobacco: NeverAlcohol UseStandard Drinks/WeekCommentsNot Currently0 (1 standard drink = 0.6 oz pure alcohol)[facility] UtilitiesAnswerDate RecordedIn the past 12 months has the [employer], gas, oil, or water [employer] threatened to shut off services in your [...] care, and heating?Not hard at all06/23/2025PHQ-2AnswerDate RecordedTotal Fywyh896 PRAPARE - TransportationAnswerDate RecordedIn the past 12 [...] a household?No06/23/2025hildcareAnswerDate RecordedDo problems getting child adolescent care make it difficult for you to work or study?No06/23/2025 EmploymentAnswerDate HzzpzimgRfowzqukczKqmdwsp42/06/2019Hunger ScreeningAnswer Date RecordedWithin the past 12 months we worried whether our food would run out before we got money to buy more.Never True06/23/2025Within the past 12 months the food we bought just didn't last and we didn't have money to get more.Never True06/23/2025Purpose - LifeAnswerDate RecordedPurpose and direction in life Sdsxmho62/27/2021Estimated Date of IlzhgthsLlnicdbfBpv80/06/2026Based on last menstrual period of 01/09/2025Sex and Gender InformationValueDate RecordedSex Assigned at IgsazPqlcci58/20/2022 9:31 PM ESTLegal AomGxwrfd97/06/2015 11:49 AM EDTGender OjrfsrafGpqcsn83/20/2022 9:31 PM ESTSexual OrientationStraight 07/30/2022 9:31 PM ESTdocumented as of this encounter Progress Notes * Anne Pozo RN - 08/17/2025 1:45 PM EST Inserted Dexcom G7 sample sensor into left posterior upper arm without difficulty.Dexcom G7 sly downloaded on phone and used to start sensor.Instructed on sensor care including dressing,bathing,swimming and removal for radiology. Instructed on logging 4x/daily (fasting and 1 hour after each meal).Connected to M practice through [employer] sly. documented in this encounter Plan of Treatment DateTypeDepartmentCare Team (Latest Contact Info)Xmqhxilvcuv56/30/2025 2:15 PM ESTAppointment [facility] - [facility]ound [address] [place] [phone] 09/17/2025 10:15 AM ESTOffice Visit [facility] Physicians Pulmonary/Sleep Medicine [address] [facility] [place] [phone] Jalyn Vidal, DO [address] [address] 09/22/2025 3:15 PM ESTAppointment [facility] - [facility]trasound [address] [place] [address] documented as of this encounter Goals GoalPatient [...]
--- OUTSIDE RECORDS SUMMARY | 2025-08-25 10:59 | XMS_ITS | Encounter Summary ---
Author Organization [facility] tem Address [id number] [address] [place] [address] Care Team Providers Care International Sourcing Manager Name Role Phone Riddhi Plata MD Primary Care Provider [phone] Encounter Details DateTypeDepartmentCare Team (Latest Contact Info)Qrtdgonnbfe94/15/2025Orders Only Maternal- Medicine at [facility] [address] [place] [phone] Sana Lima MD [address] [place] [address] Severe obesity due to excess calories affecting in second trimester ([facility]) (Primary Dx); Hx of gastric bypass Social History Tobacco UseTypesPacks/DayYears UsedDateSmoking Tobacco: NeverSmokeless Tobacco: NeverAlcohol UseStandard Drinks/WeekCommentsNot Currently0 (1 standard drink = 0.6 oz pure alcohol)[facility] UtilitiesAnswerDate RecordedIn the past 12 months [...] care, and heating?Not hard at all06/23/2025PHQ-2AnswerDate RecordedTotal Csgiv033 PRAPARE - TransportationAnswerDate RecordedIn the past 12 [...] a household?No06/23/2025hildcareAnswerDate RecordedDo problems getting child care centre manager make it difficult for you to work or study?No06/23/2025 EmploymentAnswerDate WwyoygymXkresjuejvEfgaimp81/06/2019Hunger ScreeningAnswer Date RecordedWithin the past 12 months we worried whether our food would run out before we got money to buy more.Never True06/23/2025Within the past 12 months the food we bought just didn't last and we didn't have money to get more.Never True06/23/2025Purpose - LifeAnswerDate RecordedPurpose and direction in life Oexcxnm82/27/2021Estimated Date of XkhljaayKwiddifwIym94/06/2026Based on last menstrual period of 01/09/2025Sex and Gender InformationValueDate RecordedSex Assigned at ZslrqZzwyjr06/20/2022 9:31 PM ESTLegal WwlJzmfqc77/06/2015 11:49 AM EDTGender OfmgmipuWviunm46/20/2022 9:31 PM ESTSexual OrientationStraight 07/30/2022 9:31 PM ESTdocumented as of this encounter Plan of Treatment DateTypeDepartmentCare Team (Latest Contact Info)Rnbaqiiknim02/30/2025 2:15 PM ESTAppointment [facility] - Ultrasound [address] [place] [address] 09/17/2025 10:15 AM ESTOffice Visit [facility] [address] [facility] [place] [address] Jalyn Vidal, DO [address] [address] 09/22/2025 3:15 PM ESTAppointment [facility] - Ultrasound [address] [place] [address] documented as of this encounter Goals GoalPatient Goal TypeAssociated ProblemsRecent ProgressPatient-Stated?Author safe discharge to home Kate Malave RN Note: Evaluation of progress towards goal: safe transition from hospital to home with family support. documented as of this encounter Visit Diagnoses Diagnosis Severe obesity due to excess calories affecting in second trimester (CMS-HCC)- Primary Hx of gastric bypass documented in this encounter Additional Health Concerns AssessmentNoted TimePHQ-9 Depression Total Score: 3:05 PM EDT documented as of this encounter Care Teams Team MemberRelationshipSpecialtyStart DateEnd Date Riddhi Plata MD PCP - GeneralFamily Medicine12/09/23documented as of this encounter
--- OUTSIDE RECORDS SUMMARY | 2025-08-25 10:59 | XMS_ITS | Encounter Summary ---
Author Organization [facility] Address [address] [place] [address] Care Team Providers Care Roadside Mechanic Name Role Phone Riddhi Plata MD Primary Care Provider [phone] Encounter Details DateTypeDepartmentCare Team (Latest Contact Info)Lqhcneggkjt58/16/2025bstract CHEVY TAYLOR [address] [place] [address] Bin Morales DO [address] [facility] [address] Kenneth Varela, [facility]11 Social History Tobacco UseTypesPacks/DayYears UsedDateSmoking Tobacco: NeverSmokeless Tobacco: NeverAlcohol UseStandard Drinks/WeekCommentsNever0 (1 standard drink = 0.6 oz pure alcohol)Caffeine intake: 1-2 cups per day coffeeEstimated Date of EutwyakyXjwsxlwdSks45/06/2026Based on last menstrual period of 01/09/2025Sex and Gender InformationValueDate RecordedSex Assigned at BirthNot on fileLegal Sex Etpvkq6111/22/2022 9:44 PM EDTGender IdentityNot on fileSexual OrientationNot on filedocumented as of this encounter Plan of Treatment DateTypeDepartmentCare Team (Latest Contact Info)Skqnxcogjyb40/17/2025 11:[address] [place] [address] Winter English PA [address] [facility] [address] [address] [place], [facility]11 documented as of this encounter Goals [...] DateEnd Date Riddhi Plata MD [address] [place] [address] PCP - GeneralFamily Medicine01/16/23documented as of this encounter
--- OUTSIDE RECORDS SUMMARY | 2025-08-25 10:59 | XMS_ITS | Encounter Summary ---
Author Organization [facility] tem Address [facility]-[id number] [address] [place] [address] Care Team Providers Care Cream Cheese Maker Name Role Phone Riddhi Plata MD Primary Care Provider [phone] Reason for Referral * Diagnostic Imaging (Routine) - Pending ReviewSpecialtyDiagnoses / Procedures Referred By ContactReferred To ContactMaternal and Medicine Diagnoses Poor growth affecting management of mother in third trimester, single or unspecified fetus Procedures US MF with or without consult Sana Lima MD [address] [place] [address] Phone: tel: fax: Maternal- Medicine at [facility] [address] [place] [address] Phone: tel: fax: Referral IDStatusReasonStart DateExpiration DateVisits RequestedVisits [id number] Encounter Details DateTypeDepartmentCare Team (Latest Contact Info)Joxmkddgshe04/16/2025Orders Only Maternal- Medicine at [facility] [address] [place] [address] Josie Corona, RN Poor growth affecting management of mother in third trimester, single or unspecified fetus (Primary Dx) Social History Tobacco UseTypesPacks/DayYears UsedDateSmoking Tobacco: NeverSmokeless Tobacco: NeverAlcohol UseStandard Drinks/WeekCommentsNot Currently0 (1 standard drink = 0.6 oz pure alcohol)[facility] UtilitiesAnswerDate RecordedIn the past 12 months has the [employer], gas, oil, or water [employer] threatened to shut off services in your [...] care, and heating?Not hard at all06/23/2025PHQ-2AnswerDate RecordedTotal Bbgjw409 PRAPARE - TransportationAnswerDate RecordedIn the past 12 [...] of a household?No06/23/2025hildcareAnswerDate RecordedDo problems getting childcare attendant make it difficult for you to work or study?No06/23/2025 EmploymentAnswerDate GoqfsaadVfahhpdibwBwyupde47/06/2019Hunger ScreeningAnswer Date RecordedWithin the past 12 months we worried whether our food would run out before we got money to buy more.Never True10/14/2025Within the past 12 months the food we bought just didn't last and we didn't have money to get more.Never True06/23/2025Purpose - LifeAnswerDate RecordedPurpose and direction in life Wohqada61/27/2021Estimated Date of DqnyfszrOamdicgoQyz26/06/2026Based on last menstrual period of 01/09/2025Sex and Gender InformationValueDate RecordedSex Assigned at XpckqKmjehn41/20/2022 9:31 PM ESTLegal RpeEcfatn39/06/2015 11:49 AM EDTGender FxovtlwzNtvovf59/20/2022 9:31 PM ESTSexual OrientationStraight 07/30/2022 9:31 PM ESTdocumented as of this encounter Plan of Treatment DateTypeDepartmentCare Team (Latest Contact Info)Tnvhsewvnrn70/30/2025 2:15 PM ESTAppointment [facility] - Ultrasound [address] [place] [phone] 09/17/2025 10:15 AM ESTOffice Visit [facility] Physicians Pulmonary/Sleep Medicine [address] [facility] [place] [address] Jalyn Vidal, [address] [place] [address] 09/22/2025 3:15 PM ESTAppointment [facility] - Ultrasound [address] [place] [address] NameTypePriorityAssociated DiagnosesOrder ScheduleUS MFM with or without consult ImagingRoutine Poor growth affecting management of mother in third trimester, single or unspecified fetus Expected: 08/25/2026 (Approximate), Expires: 08/25/2026documented as of this encounter Goals GoalPatient Goal TypeAssociated ProblemsRecent ProgressPatient-Stated?Author safe discharge to home Kate Malave RN Note: Evaluation of progress towards goal: safe transition from hospital to home with family support. documented as of this encounter Visit Diagnoses Diagnosis Poor growth affecting management of mother in third trimester, single or unspecified fetus- Primary documented in this encounter Additional Health Concerns AssessmentNoted TimePHQ-9 Depression Total Score: 3:05 PM EDT documented as of this encounter Care Teams Team MemberRelationshipSpecialtyStart DateEnd Date Riddhi Plata MD PCP - GeneralFamily Medicine12/09/23documented as of this encounter
--- OUTSIDE RECORDS SUMMARY | 2025-08-25 10:59 | XMS_ITS | Encounter Summary ---
Author Organization [employer] tem Address [id number] [address] [place] [address] Care Team Providers Care Glass Installer Name Role Phone Riddhi Plata MD Primary Care Provider [phone] Encounter Details DateTypeDepartmentCare Team (Latest Contact Info)Zucirofmyex27/15/2025Travel Social History Tobacco UseTypesPacks/DayYears UsedDateSmoking Tobacco: NeverSmokeless Tobacco: NeverAlcohol UseStandard Drinks/WeekCommentsNot Currently0 (1 standard drink = 0.6 oz pure alcohol)socialAH UtilitiesAnswerDate RecordedIn the past 12 months has the [employer], gas, oil, or water [employer] threatened to shut off services in your [...] care, and heating?Not hard at all06/23/2025PHQ-2AnswerDate RecordedTotal Xolqb372/ PRAPARE - TransportationAnswerDate RecordedIn the past 12 [...] part of a household?No06/23/2025hildcareAnswerDate RecordedDo problems getting teacher early childhood development make it difficult for you to work or study?No06/23/2025 EmploymentAnswerDate GaqnxquwBrqvmrlofxSffyaej99/06/2019Hunger ScreeningAnswer Date RecordedWithin the past 12 months we worried whether our food would run out before we got money to buy more.Never True06/23/2025Within the past 12 months the food we bought just didn't last and we didn't have money to get more.Never True06/23/2025Purpose - LifeAnswerDate RecordedPurpose and direction in life Jvhdaah50/27/2021Estimated Date of VjkekhuoRmmjjqsuZst52/06/2026Based on last menstrual period of 01/09/2025Sex and Gender InformationValueDate RecordedSex Assigned at TesatJzjzdw04/20/2022 9:31 PM ESTLegal LdxCsyfni08/06/2015 11:49 AM EDTGender EwjbjcuxOfdahd66/20/2022 9:31 PM ESTSexual OrientationStraight 07/30/2022 9:31 PM ESTdocumented as of this encounter Plan of Treatment DateTypeDepartmentCare Team (Latest Contact Info)Lgmnjpxatrd30/30/2025 2:15 PM ESTAppointment [facility] - [facility]trasound [address] [place] [address] 09/17/2025 10:15 AM ESTOffice Visit [facility] [address] [place] [address] Jalyn Vidal, DO [address] [address] 09/22/2025 3:15 PM ESTAppointment [facility] - Ultrasound [address] [place] [address] documented as of this encounter [...]
--- OUTSIDE RECORDS SUMMARY | 2025-08-25 10:59 | XMS_ITS | Encounter Summary ---
Author Organization [facility] Address [address] [place] [address] Care Team Providers Care Brim Stiffener Name Role Phone Riddhi Plata MD Primary Care Provider Encounter Details DateTypeDepartmentCare Team (Latest Contact Info)Gkuvigsdqdb85/02/2025amboo flowsheet CHEVY TAYLOR [address] [place] [address] Bin Morales DO [address] [facility] [address] Kenneth Varela, [facility]11 Social History Tobacco UseTypesPacks/DayYears UsedDateSmoking Tobacco: NeverSmokeless Tobacco: NeverAlcohol UseStandard Drinks/WeekCommentsNever0 (1 standard drink = 0.6 oz pure alcohol)Caffeine intake: 1-2 cups per day coffeeEstimated Date of JhauxwitEdtulzzyUvt13/06/2026Based on last menstrual period of 01/09/2025Sex and Gender InformationValueDate RecordedSex Assigned at BirthNot on fileLegal Sex Qgjapa1911/22/2022 9:44 PM EDTGender IdentityNot on fileSexual OrientationNot on filedocumented as of this encounter Plan of Treatment DateTypeDepartmentCare Team (Latest Contact Info)Pbhjklwsgbj78/17/2025 11:[address] [place] [address] Winter English PA [address] [place], [facility]11 documented as of this encounter Goals GoalPatient [...] DateEnd Date Riddhi Plata MD [address] [place] [address] PCP - GeneralFamily Medicine01/16/23documented as of this encounter
--- OUTSIDE RECORDS SUMMARY | 2025-08-25 10:59 | XMS_ITS | Encounter Summary ---
Author Organization [employer] tem Address [id number] [address] [place] [address] Care Team Providers Care Movie Stunt Performer Name Role Phone Riddhi Plata MD Primary Care Provider [phone] Encounter Details DateTypeDepartmentCare Team (Latest Contact Info)Mqwblctzclq62/08/2025Travel Social History Tobacco UseTypesPacks/DayYears UsedDateSmoking Tobacco: NeverSmokeless Tobacco: NeverAlcohol UseStandard Drinks/WeekCommentsNot Currently0 (1 standard drink = 0.6 oz pure alcohol)socialAH UtilitiesAnswerDate RecordedIn the past 12 months has the [employer], gas, oil, or water [employer] threatened to shut off services in your [...] care, and heating?Not hard at all06/23/2025PHQ-2AnswerDate RecordedTotal Krahl239/ PRAPARE - TransportationAnswerDate RecordedIn the past 12 [...] a household?No06/23/2025hildcareAnswerDate RecordedDo problems getting child care cook make it difficult for you to work or study?No06/23/2025 EmploymentAnswerDate MjcknodoRybifmtfnkGutgwpl81/06/2019Hunger ScreeningAnswer Date RecordedWithin the past 12 months we worried whether our food would run out before we got money to buy more.Never True06/23/2025Within the past 12 months the food we bought just didn't last and we didn't have money to get more.Never True06/23/2025Purpose - LifeAnswerDate RecordedPurpose and direction in life Xwgrmis56/27/2021Estimated Date of BkhtvxptCfgsmcbdLmg67/06/2026Based on last menstrual period of 01/09/2025Sex and Gender InformationValueDate RecordedSex Assigned at PuctaBohsbt50/20/2022 9:31 PM ESTLegal RebYlmpdl58/06/2015 11:49 AM EDTGender KtynmbbiKxxydd20/20/2022 9:31 PM ESTSexual OrientationStraight 07/30/2022 9:31 PM ESTdocumented as of this encounter Plan of Treatment DateTypeDepartmentCare Team (Latest Contact Info)Eexelhjzlxm91/30/2025 2:15 PM ESTAppointment [facility] - Ultrasound [address] [place] [address] 09/17/2025 10:15 AM ESTOffice Visit [facility] [address] [place] [address] Jalyn Vidal, DO [address] [address] 09/22/2025 3:15 PM ESTAppointment [facility] - Ultrasound [address] [place] [address] documented as of this encounter [...]
--- OUTSIDE RECORDS SUMMARY | 2025-08-25 10:59 | XMS_ITS | Encounter Summary ---
Author Organization [facility] tem Address [id number] [address] [place] [address] Care Team Providers Care Ichthyologist Name Role Phone Riddhi Plata MD Primary Care Provider [phone] Reason for Referral * OBGYN (Routine) - Pending ReviewSpecialtyDiagnoses / ProceduresReferred By ContactReferred To ContactMaternal and Medicine Diagnoses Pre-diabetes History of gestational diabetes in prior , currently History of Arlene-en-Y gastric bypass Chronic hypertension affecting Malnutrition following gastrointestinal surgery Procedures nonstress test - Maternal Medicine Sana Lima MD [address] [place] [address] Phone: tel: fax: Maternal- Medicine at [facility] [address] [place] [address] Phone: tel: fax: Referral IDStatusReasonStart DateExpiration DateVisits RequestedVisits [id number] Encounter Details DateTypeDepartmentCare Team (Latest Contact Info)Rwvugygnzgt19/08/2025Orders Only Maternal- Medicine at [facility] [address] [place] [address] Anne Pozo RN Pre-diabetes (Primary Dx); History of gestational diabetes in prior , currently ; History of Arlene-en-Y gastric bypass; Chronic hypertension affecting ; Malnutrition following gastrointestinal surgery Social History Tobacco UseTypesPacks/DayYears UsedDateSmoking Tobacco: NeverSmokeless Tobacco: NeverAlcohol UseStandard Drinks/WeekCommentsNot Currently0 (1 standard drink = 0.6 oz pure alcohol)socialSELECT [facility] UtilitiesAnswerDate RecordedIn the past 12 months has the [employer], gas, oil, or water [employer] threatened to shut off services in your [...] care, and heating?Not hard at all06/23/2025PHQ-2AnswerDate RecordedTotal Jxqzv279 PRAPARE - TransportationAnswerDate RecordedIn the past 12 [...] a household?No06/23/2025hildcareAnswerDate RecordedDo problems getting child care group leader make it difficult for you to work or study?No06/23/2025 EmploymentAnswerDate XzgcgnvoEndvealdiqBgmfbjy57/06/2019Hunger ScreeningAnswer Date RecordedWithin the past 12 months we worried whether our food would run out before we got money to buy more.Never True06/23/2025Within the past 12 months the food we bought just didn't last and we didn't have money to get more.Never True06/23/2025Purpose - LifeAnswerDate RecordedPurpose and direction in life Qkleupe93/27/2021Estimated Date of MzmsucgePyfiiimrKfa16/06/2026Based on last menstrual period of 01/09/2025Sex and Gender InformationValueDate RecordedSex Assigned at PqabpUzktkz07/20/2022 9:31 PM ESTLegal ZqbXteild20/06/2015 11:49 AM EDTGender DzfmvgkfLjkfwd54/20/2022 9:31 PM ESTSexual OrientationStraight 07/30/2022 9:31 PM ESTdocumented as of this encounter Plan of Treatment DateTypeDepartmentCare Team (Latest Contact Info)Dpltqqbrtbg65/30/2025 2:15 PM ESTAppointment [facility] - Ul[facility]ound [address] [place] [address] 09/17/2025 10:15 AM ESTOffice Visit [facility] Physicians Pulmonary/Sleep Medicine [address] [place] [address] [place] [address] [place] [address] 09/22/2025 3:15 PM ESTAppointment [facility] - Ultrasound [address] [place] [address] documented as of this encounter Goals GoalPatient Goal TypeAssociated ProblemsRecent ProgressPatient-Stated?Author safe discharge to home Kate Malave RN Note: Evaluation of progress towards goal: safe transition from hospital to home with family support. documented as of this encounter Results * nonstress test - [...] obesity type, unspecified whether serious comorbidity present ([facility])- Primary Pre-diabetes Other abnormal glucose History of gestational diabetes in prior , currently with other poor obstetric history History of Arlene-en-Y gastric bypass Chronic hypertension affecting Malnutrition following gastrointestinal surgery Other and unspecified postsurgical nonabsorption History of pulmonary embolism Personal history of venous thrombosis and embolism H/O gastric bypass Pre-diabetes- Primary Other abnormal glucose History of gestational diabetes in prior , currently with other poor obstetric history History of Arlene-en-Y gastric bypass Chronic hypertension affecting Malnutrition following gastrointestinal surgery Other and unspecified postsurgical nonabsorption documented in this encounter Additional Health Concerns AssessmentNoted TimePHQ-9 Depression Total Score: 3:05 PM EDT documented as of this encounter Care Teams Team MemberRelationshipSpecialtyStart DateEnd Date Riddhi Plata MD PCP - GeneralFamily Medicine12/09/23documented as of this encounter
--- OUTSIDE RECORDS SUMMARY | 2025-08-25 11:00 | XMS_ITS | Clinical Summary ---
Author Organization [facility] Address [address] [place] [address] Care Team Providers Care Corporate Communications Specialist Name Role Phone Riddhi Plata MD Primary Care Provider [phone] Allergies Active AllergyReactionsCriticalityNoted DateCommentsSumatriptanAnaphylaxis, PrywmhjPxvz38/21/2019 IMITREX FOR MIGRAINES Other Reaction(s): Other (See Comments) Medications MedicationSigDispense QuantityRefillsLast FilledStart DateEnd DateStatus albuterol HFA 90 mcg/act inhaler Indications:Moderate persistent asthma without complication (HCC)Inhale 2 puffs every 4 (four) hours if needed for shortness of breath 18 g ctive omeprazole (PriLOSEC) [address] capsule Indications:Gastroesophageal reflux disease without esophagitisTAKE 1 CAPSULE BY MOUTH DAILY 30 MINUTES BEFORE MORNING MEAL 100 capsule ctive cyanocobalamin (Vitamin B-12) 1000 MCG/ML injection 07/14/2024ctive Vit-Fe Fumarate-FA ( Vitamins) 28-0.8 MG tablet Indications:, unspecified gestational age ([facility]),Encounter for supervision of normal first in first trimester ([facility])Take 1 tablet by mouth Daily 30 tablet 60506Active busPIRone (Buspar) 15 MG tablet Indications:AnxietyTAKE 1 TABLET BY MOUTH 2 TIMES A DAY (MORNING AND BEFORE BEDTIME) 180 tablet 5Active labetalol (Normodyne) 200 MG tablet Indications:Pre-existing essential hypertension during , antepartum ([facility]),Primary hypertension,History of pulmonary embolismTAKE 1 TABLET BY MOUTH 3 TIMES A DAY IN THE MORNING, EVENING AND BEFORE BEDTIME 90 tablet 5Active Enoxaparin Sodium 40 MG/0.4ML solution prefilled syringe Inject 40 mg under the skin in the morning and 40 mg in the evening.05/29/2025 Active folic acid (Folvite) 400 MCG tablet Take 400 mcg by mouth in the morning.5Active ferrous sulfate 325 (65 Fe) MG tablet Take 325 mg by mouth in the morning.5Active cholecalciferol (Vitamin D3) 25 MCG (1000 UT) tablet Take 1 tablet by mouth Daily5Active senna-docusate (Indira-Colace) 8.6-50 MG tablet Take 1 tablet by mouth in the morning.5Active citalopram (CeleXA) 20 MG tablet Indications:AnxietyTake 1 tablet (20 mg) by mouth in the morning. 90 tablet /6Active citalopram (CeleXA) 20 MG tablet Indications:AnxietyTake 1 tablet (20 mg) by mouth in the morning. 100 tablet Discontinued(Reorder) Active Problems ProblemNoted DateDiagnosed DateH/O gastric tptpin1204/20/20253728Tqkzecj34/07/2023 Disorder of endocrine vsavzn8005/17/2023Frequent ggcmvpubf58/07/2023Irregular gyyaimi0405/17/2023Menorrhagia with regular cycle05/17/2023lass 3 severe obesity due to excess calories with serious comorbidity and body mass index (BMI) of50.0 to 59.9 in adult05/17/2023Nausea and btfajkrm86/07/2023cute pulmonary embolism 05/17/2023Single subsegmental pulmonary embolism without acute cor pulmonale 05/17/2023Thyroid ofdrdt6905/17/2023Urinary tract infection without hematuria 05/17/2023OSA on CPAP02/22/2023Morbid obesity with body mass index of 60.0-69.9 in adult01/26/2023olycystic ovarian mjprobc4501/26/2023rimary hypertension 01/26/2023neumonia due to infectious /20/2022Family history of lrjyximfky84/08/2022History of pulmonary xbrfszxu30/08/2022djustment disorder with cahqvhz6811/30/2021History of diet controlled gestational diabetes mellitus (GDM)11/30/2021Family history of diabetes during hsargooyl21/21/2022reeclampsia in period ([facility])11/26/2021 Overview (05/17/2023): 11/29/21: Discharged home with Labetalol 600 QID and Procardia 90 XL qd. Pt has appt with Dr. Morales in [place] 11/30/21 for her PP appt. Pt has BP cuff at home already and would like to f/u with [facility] 12/09/21: Decreased to Labetalol 600 TID 12/26/21: Decreased to Procardia 90 XL qd. Iron deficiency eilgyi9312/29/2019Gastroesophageal reflux qtaldpz0812/15/2019 Seasonal allergic rhinitis due to ncmksd7512/15/20197916Gipgrkg07/28/2019Anemia 06/26/20196517Rcgkjasoge11/04/2019 Overview (05/17/2023): Started on Celexa Gestational diabetes mellitus (GDM) ([facility])12/09/20180272Faapgu55/01/2019 Estimated Date of SrmrvhacVzkuyfnvZes09/06/2026Based on last menstrual period of 01/09/2025 Encounters DateTypeDepartmentCare BqbsFuumhitnnwy62/16/2025bstract N[facility] [address] [place] [address] Gonzalez Morales DO 08/12/2025Telephone [facility] [address] [place] [address] Roseanne Jones MA 08/11/2025 8:40 AM ESTRoutine NOMS Nichole [facility] [address] [place] [address] Gonzalez Morales, DO 30 weeks gestation of ([facility]); Third trimester ([facility]); History of diet controlled gestational diabetes mellitus (GDM); Preeclampsia in period ([facility]); History of pulmonary embolism; Primary bguzficslcol93/02/2025amboo flowsheet [facility] [place] [facility] [address] [place] [address] Gonzalez Morales, DO 08/10/2025Telephone [facility] [address] [address] Roseanne Jones MA 07/30/2025 9:10 AM ESTRoutine N[facility] [place] [facility] [address] [place] [address] Gonzalez Morales, DO 28 weeks gestation of ([facility]); Third trimester ([facility]); Pruritus; History of diet controlled gestational diabetes mellitus (GDM); Preeclampsia in period ([facility]); History of pulmonary embolism; Primary hypertension; History of pbladx9307/30/2025amboo flowsheet [facility] [address] [place] [address] Gonzalez Morales, DO 07/10/2025bstract [facility] [address] [place] [address] Gonzalez Morales, DO 07/10/2025bstract [facility] [place] [facility] [address] [address] Gonzalez Morales, DO 07/08/2025 8:30 AM EDTRoutine NOMS [facility] [address] [place] [address] Winter English PA Second trimester ([facility]); 25 weeks gestation of ([facility]); Jokvdzox79/29/2025linisync Result Encounter NOMS External Department Unsolicited Winter English PA 07/08/2025amboo flowsheet NOMS Nichole Robles [address] [place] [address] Winter English PA 07/05/2025linisync Result Encounter NOMS External Department Unsolicited Gonzalez Morales DO 07/01/2025linisync Result Encounter NOMS External Department Unsolicited Provider, Generic External Data 06/27/2025Refill NOMS Nichole Robles [address] [place] [address] Gonzalez Morales DO Pre-existing essential hypertension during , antepartum ([facility]); Primary hypertension; History of pulmonary hgrohxln04/15/2025 1:40 PM EDTRoutine NOMEl Rob[facility] [place] [address] Winter English PA Gallstones and inflammation of gallbladder without obstruction (Primary Dx); Second trimester ([facility]); 23 weeks gestation of ([facility]); History of diet controlled gestational diabetes mellitus (GDM); Preeclampsia in period ([facility]); History of pulmonary embolism; Primary hypertension; Diabetes mellitus rrqrkedto16/14/2025Telephone CHEYV Robles [address] [place] [address] Gonzalez Morales DO 06/18/2025Orders Only NOMEl Robles [address] [place] [address] Leslye Chairez LPN 06/10/2025 8:50 AM EDTRoutine NOMS [facility] [place] [address] Nena Spicer NP 21 weeks gestation of ([facility]); Well woman exam; Second trimester ([facility]); Screen for STD (sexually transmitted disease); Well woman exam with routine gynecological exam; Diabetes mellitus screening; Iron deficiency anemia, unspecified iron deficiency anemia type06/10/2025 Clinisync Result Encounter NOMS External Department Unsolicited Dannielle Nena, UNDERWRITING OPERATIONS MANAGER 06/10/2025amboo flowsheet NOMS Nichole [facility] [address] [place] [address] Nena Spicer, UNDERWRITING OPERATIONS MANAGER 06/02/2025bstract NOMS Nichole TAYL[facility] [address] [place] [address] Gonzalez Morales DO 06/01/2025External Result Encounter N[facility] Nichole TAYL[facility] [address] [place] [address] Gonzalez Morales DO from Last 3 Months Immunizations ImmunizationAdministration DatesNext DueDTaP, Fhqvpkoirya00/07/1999,10/23/1996, 01/17/1996,09/28/1995,03/28/1995HPV, Ghkjlyxwdsiz34/29/2009,02/05/2009, 12/01/2008Hep A, ped/adol, 2 dose02/08/2012,02/05/2009,12/01/2008Hep B, Adolescent or Zhvpjnttz92/09/1996,09/28/1995,03/28/1995HiB, unspecified 10/23/1996,01/17/1996,09/28/1995,03/28/1995Influenza, injectable, quadrivalent, preservative free08/11/2019Influenza, seasonal, yjjmlclomc20/01/2011MMR 01/14/1999,03/28/1995Meningococcal BAK2K7012/01/2008Polio, Gitpurewepa23/07/1999, 01/17/1996,09/28/1995,03/28/1995Tdap12/01/2008 Family History Medical HistoryRelationNameCommentsDiabetesFatherHypertensionFatherMental illnessFatherCancerMaternal GrandmotherHypertensionMotherDiabetesPaternal GrandfatherCancerPaternal KlitawcbsvfIcsjfjztBlwnLpubipDpcxxkkiUuvxwym2Fpkhvxba5 FatherAliveMaternal GrandmotherMotherAlivePaternal GrandfatherPaternal DrttljqjwqoGrpzbg5Sgj1 Social History Tobacco UseTypesPacks/DayYears UsedDateSmoking Tobacco: NeverSmokeless Tobacco: Never Tobacco Cessation:Counseling Given: Not Answered Alcohol UseStandard Drinks/WeekCommentsNever0 (1 standard drink = 0.6 oz pure alcohol)Caffeine intake: 1-2 cups per day coffeeEstimated Date of EffxoqpyLgjnnlxvVfp06/06/2026Based on last menstrual period of 01/09/2025Sex and Gender InformationValueDate RecordedSex Assigned at BirthNot on fileLegal Sex Jykfxw4411/22/2022 9:44 PM EDTGender IdentityNot on fileSexual OrientationNot on file Last Filed Vital Signs Vital SignReadingTime TakenCommentsBlood Lnwcouex110/6008/11/2025 9:02 AM EST Vwvpw689210/10/2024 3:32 PM ESTTemperature--Respiratory Uhej317610/10/2024 3:32 PM ESTOxygen Qmcewdgzqr77%10/10/2024 3:32 PM ESTInhaled Oxygen Concentration-- Iaqkns774 kg (235 lb 12.8 oz)08/11/2025 9:02 AM KVVMlfvld939.9 cm (5' 1 ) 10/10/2024 3:32 PM ESTBody Mass Index44.55010/10/2024 3:32 PM EST Plan of Treatment DateTypeDepartmentCare Team (Latest Contact Info)Ubvrpfkzuya82/17/2025 11:20 AM ESTRoutine NOMS Nichole TAYLOR [address] [place] [address] Winter English PA [address] [place] [address] Health MaintenanceDue DateLast DoneCommentsPneumococcal Vaccine: Pediatrics (0 to 5 Years) and At-Risk Patients (6 to 64 Years) (1 of 2 - PCV)2013COVID- 19 Vaccine ( - 2024- season)2025Influenza Vaccine (#1)2025 08/11/2019, 07/11/2011HPV/Oeqrza87, 12/11/2017Cervical Cancer Bahoqcuso28/01/2028Pap Smear Goals GoalPatient Goal TypeAssociated ProblemsRecent ProgressPatient-Stated?Author Help patient manage antidepressant medication Care PlanPatient on antidepressant monitoring Riddhi Mcdonald MD Baseline PHQ-9 Care PlanBaseline PHQ-9Riddhi Lerma MD Procedures Procedure NamePriorityDate/TimeAssociated DiagnosisCommentsPOCT URINALYSIS DLQLMSZTRcayiby99/02/2025 9:11 AM EST 30 weeks gestation of ([facility]) Third trimester ([facility]) History of diet controlled gestational diabetes mellitus (GDM) Preeclampsia in period ([facility]) History of pulmonary embolism Primary hypertension POCT URINALYSIS RCNZACEXEmafroa11/20/2025 9:11 AM EST 28 weeks gestation of ([facility]) Third trimester ([facility]) [facility] BILE ACIDS FRACT PHUJrjxlqe26/29/2025 9:40 AM EDT ALL HEPATITIS C GYNcebizq11/29/2025 9:40 AM EDT ALL THYROID STIM ECDCVQXRindzpo28/29/2025 9:40 AM EDT HMHP LIVER SDEPLZukmgij12/29/2025 9:40 AM EDT ALL CBC WITH AUTO ZVVQFwschto92/29/2025 9:40 AM EDT POCT URINALYSIS IWCXSSIACzhdbtq22/29/2025 8:48 AM EDT 25 weeks gestation of ([facility]) HQFHYYAJDofsugn21/26/2025 8:00 PM EDT TBH UA (CLEAN/CATCH) SELF SEALING FUEL TANK REPAIRER/MICRO IF IND.Hnmktwy1607/05/2025 7:50 PM EDT ALL CBC WITH AUTO KPVUObeeacx76/22/2025 9:21 AM EDT MLR HEMOGLOBIN J6QYswxihd14/22/2025 9:21 AM EDT RECURRENT VAGINITIS (HTRX)Odphomz7006/10/2025 10:04 AM EDT POCT URINALYSIS NPBWNSZNAuupmrr80/01/2025 9:14 AM EDT 21 weeks gestation of ([facility]) IGP,APTIMA HPV,AGE KZWSGuqvbyy74/01/2025 9:06 AM EDT PAP OCFOXZqjyyxz47/01/2025 12:00 AM EDTUS OB 14+ WEEKS ANATOMY SCAN06/01/2025 5:47 PM EDT THINPREP PAP AND HPV MRNA E6/E7 W/RFL HPV 16,18/96Lqxizth43/28/2023 4:13 PM EDT Well woman exam with routine gynecological exam from Last 3 Months or Most Recently Relevant to Health Maintenance Results * (ABNORMAL) POCT urinalysis dipstick manually resulted (08/11/2025 9:11 AM EST) Only the most recent of4 resultswithin the time period is included. ComponentValueRef RangeTest MethodAnalysis TimePerformed AtPathologist Signature Color, UAYellowClarity, UAClearGlucose, UANegativeNegative - 2000(110) ++++ mg/dLBilirubin, UANegativeNegative - 4(70) +++ mg/dLKetones, UANegativeNegative - 160(16) ++++ mg/dLSpec Grav, UA1.0301 - 1.03Blood, UANegativeNegative - 50 Raul/mcLpH, UA6.05 - 9Protein, UAPositiveNegative - 2000(20) ++++ mg/dL Urobilinogen, UA1.00.2 - 12 mg/dLLeukocytes, UA2+Negative - 500+++ Ramo/mcL Nitrite, UANegativeNegative - PositiveSpecimen (Source)Anatomical Location / LateralityCollection Method / VolumeCollection TimeReceived SlvpDgptx22/02/2025 9:11 AM EST Narrative Authorizing ProviderResult TypeResult StatusCorey Carmen DOPOINT OF CARE TEST ENTER/EDIT ORDERABLESFinal Result * (ABNORMAL) [facility] LIVER PANEL (07/08/2025 9:40 AM EDT)ComponentValueRef Range Test MethodAnalysis TimePerformed AtPathologist SignatureBILIRUBIN TOTAL0.20.2 - 1.0 mg/dLTBHBILIRUBIN DIRECT0.10.0 - 0.2 mg/dLTBHASPARTATE AMINO TRANSFERASE 8(L)15 - 37 U/LTBHALANINE XITXKJEDJLETNZCU0783 - 59 U/LTBHALKALINE PHOSPHATASE 7446 - 116 U/LTBHTOTAL PROTEIN6.66.4 - 8.2 g/dLTBHALBUMIN LEVEL2.9(L)3.4 - 5.0 g/dLTBHGLOBULIN3.7g/dLTBHALBUMIN GLOBULIN RATIO0.8TBHSpecimen (Source) Anatomical Location / LateralityCollection Method / VolumeCollection Time Received Time07/08/2025 9:40 AM EDT1 9:52 AM EDT Narrative CLINISYNC - 07/08/2025 11:42 AM EDT Authorizing ProviderResult TypeResult StatusAmy [place] PACLINISYNCFinal Result Performing OrganizationAddressCity/State/ZIP CodePhone Number CLINISYNC [facility] * [facility] BILE ACIDS FRACT BLD (07/08/2025 9:40 AM EDT)ComponentValueRef RangeTest MethodAnalysis TimePerformed AtPathologist SignatureBILE ACIDS9.20.0 - 10.0 umol/LTBHComment: Performed at: ??BN - [facility] [address] ??[id number] Re Examiner: Alexis Carrizales MD, Phone: ??[phone] Specimen (Source)Anatomical Location / LateralityCollection Method / Volume Collection TimeReceived Time07/08/2025 9:40 AM EDT1 9:52 AM EDT Narrative CLINISYNC - 07/10/2025 7:08 AM EDT Authorizing ProviderResult TypeResult StatusAmy [place] PACLINISYNCFinal Result Performing OrganizationAddressCity/State/ZIP CodePhone Number [facility] * ALL THYROID STIM HORMONE (07/08/2025 9:40 AM EDT)ComponentValueRef RangeTest MethodAnalysis TimePerformed AtPathologist SignatureTHYROID STIMULATING HORMONE2.1800.358 - 3.740 uIU/mLTBHSpecimen (Source)Anatomical Location / LateralityCollection Method / VolumeCollection TimeReceived Time07/08/2025 9:40 AM EDT1 9:52 AM EDT Narrative [facility] - 07/08/2025 11:42 AM EDT Authorizing ProviderResult TypeResult StatusAmy [place] PACLINISYNCFinal Result Performing OrganizationAddressCity/State/ZIP CodePhone Number [facility] * ALL HEPATITIS C AB (07/08/2025 9:40 AM EDT)ComponentValueRef RangeTest Method Analysis TimePerformed AtPathologist SignatureHCV ANTIBODYNon ReactiveNon ReactiveTBHComment: HCV antibody alone does not differentiate between previously resolved infection and active infection. Equivocal and Reactive HCV antibody results should be followed up with an HCV RNA test to support the diagnosis of active HCV infection. Performed at: ?? - [facility] ??[id number] Re Examiner: Sedrick Snider PhD, Phone: ??[phone] Specimen (Source)Anatomical Location / LateralityCollection Method / Volume Collection TimeReceived Time07/08/2025 9:40 AM EDT1 9:52 AM EDT Narrative CLINISYID - 07/09/2025 4:07 AM EDT Authorizing ProviderResult TypeResult StatusAmy [place] PACLINISYNCFinal Result Performing OrganizationAddEncompass Health Rehabilitation Hospital of Harmarvillety/State/ZIP CodePhone Number [facility] * (ABNORMAL) ALL CBC WITH AUTO DIFF (07/08/2025 9:40 AM EDT) Only the most recent of2 resultswithin the time period is included. ComponentValueRef RangeTest MethodAnalysis TimePerformed AtPathologist Signature TBH WBC11.5(H)4.0 - 11.0 10 3/uLTBHTBH RBC3.40(L)4.20 - 5.40 10 6/uLTBHTBH HGB 10.4(L)12.0 - 16.0 g/dLTBHTBH HCT31.3(L)36.0 - 48.0 %TBHTBH MCV92.181.0 - 99.0 fLTBHTBH MCH30.626.7 - 34.0 pgTBHTBH MCHC33.229.9 - 35.2 g/dLTBHTBH RDW13.211.0 - 15.0 %TBHTBH EDN033386 - 450 10 3/uLTBHTBH MPV9.99.5 - 13.5 fLTBHNEUTROPHILS PERCENT AUTO69.343.0 - 75.0 %TBHLYMPHOCYTES PERCENT AUTO24.320.5 - 60.0 %TBH MONOCYTES PERCENT AUTO4.51.7 - 12.0 %TBHTBH EO %1.00.9 - 7.0 %TBHBASOPHILS PERCENT AUTO0.40.2 - 2.0 %TBHIMMATURE GRANULOCYTES PCT AUTO0.50.0 - 0.5 %TBH NEUTROPHILS ABSOLUTE AUTO8.0(H)1.4 - 6.5 10 3/uLTBHLYMPHOCYTES ABSOLUTE AUTO2.8 1.2 - 3.8 10 3/uLTBHMONOCYTES ABSOLUTE AUTO0.50.3 - 0.8 10 3/uLTBHTBH EO #0.10.0 - 0.7 10 3/uLTBHBASOPHILS ABSOLUTE AUTO0.10.0 - 0.1 10 3/uLTBHIMMATURE GRANULOCYTES ABS AUTO0.06(H)0.00 - 0.03 10 3/uLTBHSpecimen (Source)Anatomical Location / LateralityCollection Method / VolumeCollection TimeReceived Time 07/08/2025 9:40 AM EDT1 9:52 AM EDT Narrative CLINISYNC - 07/08/2025 10:06 AM EDT Authorizing ProviderResult TypeResult StatusAmy Amador PACLINISYNCFinal Result Performing OrganizationAddressCity/State/ZIP CodePhone Number CLINISYNC TB * AMNISURE (07/05/2025 8:00 PM EDT)ComponentValueRef RangeTest MethodAnalysis TimePerformed AtPathologist SignatureTBH AMNISURENEGATIVENEGATIVETBHSpecimen (Source)Anatomical Location / LateralityCollection Method / VolumeCollection TimeReceived Time07/05/2025 8:00 PM EDT1 8:21 PM EDT Narrative [facility] - 07/05/2025 8:27 PM EDT Authorizing ProviderResult TypeResult StatusValejyoti Blood CNMLAB BLOOD ORDERABLESFinal ResultPerforming OrganizationAddressCity/State/ZIP CodePhone Number [facility] * (ABNORMAL) [facility] UA (CLEAN/CATCH) SELF SEALING FUEL TANK REPAIRER/MICRO IF IND. (07/05/2025 7:50 PM EDT) ComponentValueRef RangeTest MethodAnalysis TimePerformed AtPathologist SignatureCOLOR URINEYELLOWYELLOWTBHCLARITY URINECLEARCLEARTBHSPECIFIC GRAVITY URINE1.0201.005 - 1.025TBHPH URINE6.05.0 - 9.0TBHPROTEIN URINENEGATIVE NEG/TRACE mg/dLTBHGLUCOSE URINE UANEGATIVENEGATIVE mg/dLTBHBILIRUBIN URINE NEGATIVENEGATIVETBHKETONES URINETRACE(A)NEGATIVE mg/dLTBHBLOOD URINENEGATIVE NEGATIVETBHNITRITE URINENEGATIVENEGATIVETBHUROBILINOGEN URINE2.0(A)0.2 - 1.0 EU/dLTBHLEUKOCYTE ESTERASE URINENEGATIVENEGATIVETBHURINE MICROSCOPIC INDICATED NOTBHSpecimen (Source)Anatomical Location / LateralityCollection Method / VolumeCollection TimeReceived Time07/05/2025 7:50 PM EDT1 8:17 PM EDT Narrative [facility] - 07/05/2025 8:22 PM EDT Authorizing ProviderResult TypeResult StatusCoremalena Morales DOCLINISYNCFinal Result Performing OrganizationAddressCity/State/ZIP CodePhone Number [facility] * MLR HEMOGLOBIN A1C (07/01/2025 9:21 AM EDT)ComponentValueRef RangeTest Method Analysis TimePerformed AtPathologist SignatureGLYCOHEMOGLOBIN A1C4.84.5 - 6.2 %TBHComment: ADA RECOMMENDED LIMIT 4.0 - 6.0 ADA THERAPEUTIC TARGET < 7.0 ACTION SUGGESTED > 7.0 ESTIMATED AVERAGE OOYWZUN87iv/dLTBHSpecimen (Source)Anatomical Location / LateralityCollection Method / VolumeCollection TimeReceived Time07/01/2025 9:21 AM EDT1 9:38 AM EDT Narrative CLINISYNC - 07/01/2025 9:54 AM EDT Authorizing ProviderResult TypeResult StatusGeneric External Data Provider CLINISYNCFinal ResultPerforming OrganizationAddressCity/State/ZIP CodePhone Number CLINPRITESH [facility] * RECURRENT VAGINITIS (HTRX) (06/10/2025 10:04 AM EDT)ComponentValueRef Range Test MethodAnalysis TimePerformed AtPathologist SignatureATOPOBIUM VAGINAE0 19.961 - 24.689 ppm06/11/2025 6:30 AM EDTHealthTrackRx at [facility] HospitalATOPOBIUM VAGINAENot Fiimvygb35.961 - 24.689 ppm06/11/2025 6:30 AM EDTHealthTrackRx at [facility]AB 2,3 (BACTERIAL VAGINOSIS ASSOCIATED BACTERIA 2, 3); MOBILUNCUS SPP 019.961 - 24.689 ppm06/11/2025 6:30 AM EDTHealthTrackRx at [facility] HospitalBVAB 2,3 (BACTERIAL VAGINOSIS ASSOCIATED BACTERIA 2, 3); MOBILUNCUS SPPNot Detected 19.961 - 24.689 ppm06/11/2025 6:30 AM EDTHealthTrackRx at [facility] HospitalCANDIDA ALBICANS, PARAPSILOSIS, RQXHFHVVNX258.000 - 30.347 ppm06/11/2025 6:30 AM EDT [facility]CAND[facility] ALBICANS, PARAPSILOSIS, TROPICALISNot Detected 23.000 - 30.347 ppm06/11/2025 6:30 AM EDTHealthTrackRx at [facility] HospitalPortCANDIDA ROGDAOWF854.000 - 31.618 ppm06/11/2025 6:30 AM EDTHealth[facility]Rx [facility] YUAN GLABRATANot Txedkxee31.000 - 31.618 ppm06/11/2025 6:30 AM EDT [facility] HospitalPortCANDIDA AXJKJQ186.000 - 30.873 ppm06/11/2025 6:30 AM EDTHealthTrackRx at [facility]Henry [facility] HospitalCANDIDA KRUSEINot Anbctdom46.000 - 30.873 ppm 06/11/2025 6:30 AM EDTHealthTrackRx at LabPortCHLAMYDIA OTEXFWAAZSP340.000 - 31.586 ppm06/11/2025 6:30 AM EDTHealthTrackRx at LabPortCHLAMYDIA TRACHOMATIS Not Hifhswdj41.000 - 31.586 ppm06/11/2025 6:30 AM EDTHealthTrackRx at [facility] GARDNERELLA EGEMBLFAV727.961 - 24.689 ppm06/11/2025 6:30 AM EDTHealthTrackRx at LabHenry [facility] HospitalGARDNERELLA VAGINALISNot Gyzwmksl89.961 - 24.689 ppm06/11/2025 6:30 AM EDTHealthTrackRx at LabPortMEGASPHAERA (TYPES 1, 2)019.961 - 24.689 ppm 06/11/2025 6:30 AM EDTHealthTrackRx at LabHenry [facility] HospitalMEGASPHAERA (TYPES 1, 2)Not Conccawn08.961 - 24.689 ppm06/11/2025 6:30 AM EDTHealthTrackRx at [facility] NEISSERIA FCUZEVBMKAA625.000 - 32.587 ppm06/11/2025 6:30 AM EDTHealthTrackRx at LabHenry [facility] HospitalNEISSERIA GONORRHOEAENot Oyuulxqj88.000 - 32.587 ppm06/11/2025 6:30 AM EDTHealthTrackRx at LabPortTRICHOMONAS GFQQZSOUV366.000 - 31.995 ppm 06/11/2025 6:30 AM EDTHealthTrackRx at LabPortTRICHOMONAS VAGINALISNot Iqvqjdny58.000 - 31.995 ppm06/11/2025 6:30 AM EDTHealthTrackRx at [facility] MYCOPLASMA PZPWLRECXK557.961 - 24.689 ppm06/11/2025 6:30 AM EDTHealthTrackRx at LabPortMYCOPLASMA GENITALIUMNot Lnebkkep91.961 - 24.689 ppm06/11/2025 6:30 AM EDTHealthTrackRx at LabPortSpecimen (Source)Anatomical Location / LateralityCollection Method / VolumeCollection TimeReceived TimeTissue 06/10/2025 10:04 AM EDT1 1:43 AM EDT Narrative Authorizing ProviderResult TypeResult StatusWayneconstantin Dannielle NPLAB BLOOD ORDERABLESFinal ResultPerforming OrganizationAddressCity/State/ZIP CodePhone Number [facility] [address] [address] * IGP,APTIMA HPV,AGE GDLN (06/10/2025 9:06 AM [...] at: 01 =G ?[facility] [address], [place] ??[phone] ?? Flores Rodgers MD, IGP, APTIMA HPV, RFX 16/18,45Note.TBHComment: ?? TESTS ? RESULT ??FLAG ??UNITS ?REF RANGE ??LAB DIAGNOSIS: ?02 ?? NEGATIVE FOR INTRAEPITHELIAL LESION OR MALIGNANCY. Specimen adequacy: ?02 ?? Satisfactory for evaluation. No endocervical component is identified. Performed by: ? 02 ?? Jorge Whittington, [employer] (ASCP) . ? 02 Note: ? Note [...] Low,>-Panic High,A-Abnormal,AA-Critical Abnormal Performed at: 02 WB ?[facility] ?? [address], [place] ??[id number] ?? Flores Rodgers MD, HPV APTIMANegativeNegativeTBHComment: This nucleic acid amplification test detects fourteen high- risk HPV types (16,18,31,33,35,39,45,51,52,56,58,59,66,68) without differentiation. Performed at: ??=G - [facility] ??[id number] Re Examiner: Flores Rodgers MD, Phone: ??[phone] Performed at: ??WB - [facility] ??[id number] Re Examiner: Flores Rodgers MD, Phone: ??[phone] Specimen (Source)Anatomical Location / LateralityCollection Method / Volume Collection TimeReceived Time06/10/2025 9:06 AM EDT1 8:57 PM EDT Narrative SUZANISYNC - 06/17/2025 3:09 PM EDT [facility] Authorizing ProviderResult TypeResult StatusGeneric External Data ProviderLAB BLOOD ORDERABLESFinal ResultPerforming OrganizationAddressCity/State/ZIP Code Phone Number [facility] * Pap Smear (06/10/2025 12:00 [...] PM EDT THIS EXAM WAS PERFORMED AT [facility] NAME: ??TARA PERKINS : 1995 SEX: F Accession Number: [id number] ORDERING PHYSICIAN: ESTER PRATT REFERRING PHYSICIAN: GONZALEZ MORALES Coding Procedures ? 56435: Ultrasound, uterus, real time with image documentation, and maternal evaluation ? plus detailed anatomic examination, transabdominal approach;single or first gestation ? 42258: Ultrasound, uterus, real time with image documentation, [...] (oz) ? 11 oz EFW by: ?Hadlock ([id number]) Extended Tibia ??24.7 mm 18w 5d 17% Natalya Tacking Machine Operator ? 5.8 mm CM ? [...] Heart/Thorax: RVOT view. LVOT view. 3-vessel view. 3-xquhss-eufkqcr view. Situs. Aortic arch view. Bicaval view. [...] Marginal cord insertion noted. Recommendations Please see [facility] documentation from today. The patient is scheduled in four to six week(s) to complete anatomic survey. Subsequent follow up or other follow up as clinically determined by primary OB provider unless otherwise specified by [facility]. Results forwarded to ordering provider so they can follow up with the patient as necessary. The copy-to physician of this order is GONZALEZ Jenkins The ordering physician of this order is ESTER Lopez Procedure Note Radiology, Radiologist, MD - 06/01/2025 THIS EXAM WAS PERFORMED AT [facility] NAME: TARA PERKINS : 1995 SEX: F Accession Number: [id number] ORDERING PHYSICIAN: ESTER PRATT REFERRING PHYSICIAN: GONZALEZ MORALES Coding Procedures 51067: Ultrasound, uterus, real time with image documentation, and maternal evaluation plus detailed anatomic examination, transabdominalapproach;single or first gestation 26199: Ultrasound, uterus, real time with imagedocumentation, transvaginal [...] ft. Weight 108 kg, 239 lb. Initial ianoky031 kg, 239 lb. BMI 46.68 kg/m???. Initial [...] EFW (oz) 11 oz EFW by: Hadlock ([id number]-FL) Extended Tibia 24.7 mm 18w 5d 17% Natalya Tacking Machine Operator 5.8 mm CM 4.6 mm [...] Heart/Thorax: RVOT view. LVOT view. 3-vessel view. 7-thftki-vzkvlxx view.Situs. Aortic arch view. Bicaval view. Ductal [...] byprimary OB provider unless otherwise specified by [facility]. Results forwarded to ordering provider so they can follow up with thepatient as necessary. The copy-to physician of this order is GONZALEZ Jenkins The ordering physician of this order is ESTER Lopez Authorizing ProviderResult TypeResult StatusGonzalez GARCIA OB US PROCEDURES Final Result * THINPREP PAP AND HPV MRNA E6/E7 W/RFL HPV 16,18/45 (06/07/2023 4:13 PM EDT) Narrative Authorizing ProviderResult TypeResult StatusWinter GIVENS BLOOD ORDERABLES Final ResultPerforming OrganizationAddressCity/State/ZIP CodePhone Number EXTERNAL LAB from Last 3 Months or Most Recently Relevant to Health Maintenance Additional Health Concerns Active ProblemsNoted DateDiagnosed DatePatient on antidepressant monitoring plan 02/01/2024aseline PHQ-9002/01/2024 Insurance * Guarantor: Shira Jett TypeRelation to PatientDate of BirthPhone Billing AddressPersonal/QrupiwYawm1995 [facility] [place] [address] Care Teams Team MemberRelationshipSpecialtyStart DateEnd Date Riddhi Plata MD [address] [place] [address] PCP - GeneralFamily Medicine01/16/23
[2025-08-25 11:57] VITALS: BP 114/58; PULSE 76
== END 2025-08-25 12:02 | disposition home or self-care (01) ==
LOC: US 10:57 → FBC 10:58
PROVIDERS: PCP Family Medicine; Visit Provider Obstetrics & Gynecology
DX: O24.419 Gestational diabetes mellitus in pregnancy, unspecified control (principal); Z3A.32 32 weeks gestation of pregnancy
CPT/HCPCS: 76818

== ENCOUNTER 2025-09-01 11:02 | Outpatient (OUT) | payer OTHER, SELFPAY ==
--- OUTSIDE RECORDS SUMMARY | 2025-08-17 11:02 | XMS_ITS | Encounter Summary ---
Author Organization [facility] tem Address [facility] [id number] [address] [place] [address] Care Team Providers Care Screedman Name Role Phone Riddhi Plata MD Primary Care Provider [phone] Reason for Referral * Diagnostic Imaging (Routine) - Pending ReviewSpecialtyDiagnoses / Procedures Referred By ContactReferred To ContactMaternal and Medicine Diagnoses Pre-diabetes History of gestational diabetes in prior , currently History of Arlene-en-Y gastric bypass Chronic hypertension affecting History of pre-eclampsia in prior , currently in second trimester Procedures US MF with or without consult Sana Lima MD [address] [place] [address] Phone: tel: fax: Maternal- Medicine at [facility] [address] [place] [address] Phone: tel: fax: Referral IDStatusReasonStart DateExpiration DateVisits RequestedVisits [id number] Reason for Visit * Diagnostic Imaging (Routine) - Pending ReviewSpecialtyDiagnoses / Procedures Referred By ContactReferred To ContactMaternal and Medicine Diagnoses Pre-diabetes History of gestational diabetes in prior , currently History of Arlene-en-Y gastric bypass Chronic hypertension affecting History of pre-eclampsia in prior , currently in second trimester Procedures US [facility] with or without consult Sana Lima MD [address] [place] [address] Phone: tel: fax: Maternal- Medicine at [facility] [address] [place] [address] Phone: tel: fax: Referral IDStatusReasonStart DateExpiration DateVisits RequestedVisits [id number] Encounter Details DateTypeDepartmentCare Team (Latest Contact Info)Obpkvtcqqno48/08/2025 11:02 AM EST - 08/17/2025 11:59 PM ESTHospital Encounter [facility] - [facility] US Imaging [address] [place] [address] Pre-diabetes; History of gestational diabetes in prior , currently ; History of Arlene-en-Y gastric bypass; Chronic hypertension affecting ; History of pre-eclampsia in prior , currently in second trimester Discharge Disposition: Home Social History Tobacco UseTypesPacks/DayYears UsedDateSmoking Tobacco: NeverSmokeless Tobacco: NeverAlcohol UseStandard Drinks/WeekCommentsNot Currently0 (1 standard drink = 0.6 oz pure alcohol)Xiaohongshu UtilitiesAnswerDate RecordedIn the past 12 months has the [employer], [employer], or water [employer] threatened to shut off services in your [...] care, and heating?Not hard at all06/23/2025PHQ-2AnswerDate RecordedTotal Heace454 PRAPARE - TransportationAnswerDate RecordedIn the past 12 [...] of a household?No06/23/2025hildcareAnswerDate RecordedDo problems getting child study team director make it difficult for you to work or study?No06/23/2025 EmploymentAnswerDate DvopjnvnDfvjmaawhqYvtxcwi53/06/2019Hunger ScreeningAnswer Date RecordedWithin the past 12 months we worried whether our food would run out before we got money to buy more.Never True06/23/2025Within the past 12 months the food we bought just didn't last and we didn't have money to get more.Never True06/23/2025Purpose - LifeAnswerDate RecordedPurpose and direction in life Gnmuiix33/27/2021Estimated Date of BfjftjnoCzqfuoneZez68/06/2026Based on last menstrual period of 01/09/2025Sex and Gender InformationValueDate RecordedSex Assigned at CbaonNuydoc82/20/2022 9:31 PM ESTLegal LrvCdddae88/06/2015 11:49 AM EDTGender HvntugdsQimzfg14/20/2022 9:31 PM ESTSexual OrientationStraight 07/30/2022 9:31 PM ESTdocumented as of this encounter Medications at Time [...] 30 tablet 6005/29/2025 blood sugar diagnostic strip Indications:Pre-diabetes,20 weeks gestation of ,History of gestational diabetes in prior , currently 1 strip by other route as needed for high blood sugar. Strips that will be compatible with patient glucometer and supported by her insurance 100 strip blood sugar diagnostic strip Indications:Pre-diabetes,20 weeks gestation of ,History of gestational diabetes [...] 3 each documented as of this encounter Plan of Treatment DateTypeDepartmentCare Team (Latest Contact Info)Sjwlscwcbwi58/29/2025 2:30 PM ESTTelemedicine Maternal- Medicine at [facility] [address] [place] [address] Lara Looney PA-C [address] [address] 09/08/2025 2:15 PM ESTAppointment [facility] [address] [place] [address] 09/17/2025 10:15 AM ESTOffice Visit [facility] [address] [place] [address] Jalyn Vidal, [address] [address] 09/22/2025 3:15 PM ESTAppointment [facility] - [facility]ound [address] [place] [address] documented as of this encounter Goals GoalPatient Goal TypeAssociated ProblemsRecent ProgressPatient-Stated?Author safe discharge to home Kate Malave RN Note: Evaluation of progress towards goal: safe transition from hospital to home with family support. documented as of this encounter Procedures Procedure NamePriorityDate/TimeAssociated DiagnosisCommentsUS [facility] OB FOLLOW-UP, 1 FRXCGAxgzscd17/08/2025 12:46 PM EST Pre-diabetes History of gestational diabetes in prior , currently History of Arlene-en-Y gastric bypass Chronic hypertension affecting History of pre-eclampsia in prior , currently in second trimester documented in this encounter Results * [facility] OB FOLLOW-UP, 1 FETUS (08/17/2025 12:46 PM EST)Anatomical Region LateralityModalityOB-GYNUltrasoundSpecimen (Source)Anatomical Location / LateralityCollection Method / VolumeCollection TimeReceived Time08/17/2025 11:44 AM EST Narrative 08/17/2025 1:15 PM EST NAME: ??TARA PERKINS : 1995 SEX: F Accession Number: [id number] ORDERING PHYSICIAN: SANA LIMA REFERRING PHYSICIAN: SANA LIMA Coding Procedures ? 43719: Ultrasound, uterus, real time with image documentation, follow up,transabdominal ? approach per fetus ? 97732: Doppler velocimetry, ; umbilical artery Indication Screening for follow-up survey, Obesity in , history of gastric bypass , history of PE , History of gestational hypertension , History of prior with gestational diabetes , Supervision of high risk , IUGR-Poor growth. History OB History ? 3. Para 2 ? Children born living ?37w 2 ? T2L2 Current Cell free DNA ?low risk analysis Maternal Assessment Physical Exam ??Height 152 cm, 5 ft. Initial weight 108 kg, 239 lb. Initial BMI 46.68 kg/m?? Method Transabdominal ultrasound examination. View: Suboptimal view: limited by position and maternal body habitus. Images of optimal diagnostic quality could not be obtained. Wilder . Number of fetuses: 1 Dating LMP on: ?01/09/2025 GA by LMP ?31 w + 3 d SEBASTIAN by LMP: ?10/16/2025 Previous Ultrasound on: ?03/20/2025 Type of prior assessment: ?GA GA at prior assessment date ?9 w + 2 d GA by previous U/S ? 30 w + 5 d SEBASTIAN by previous Ultrasound: ?10/21/2025 Ultrasound examination on: ? 08/17/2025 GA by U/S based upon: ??AC, BPD, Femur, HC GA by U/S ?30 w + 1 d SEBASTIAN by U/S: ?10/25/2025 Assigned: ?based on the LMP, selected on 05/29/2025 Assigned GA (weeks days) ? 31 w + 3 d Assigned SEBASTIAN: ??10/16/2025 General Evaluation Cardiac activity Present. FHR 142 bpm. Presentation: breech Placenta: Placental site: anterior, fundal, previously documented away from cervical os Umbilical cord: Cord vessels: 3 vessel cord. Insertion site: documented previously Amniotic fluid: Amount of AF: normal amount. MVP 4.8 cm Biometry Standard BPD ?76.0 mm 30w 3d 15% Hadlock OFD ?101.5 mm ?32w 6d 84% Natalya HC ? 282.8 mm ?31w 0d 9% Hadlock Cerebellum tr ??40.0 mm 32w 1d 53% Hill AC ? 256.2 mm ?29w 6d 9% Hadlock Femur ??56.0 mm 29w 3d 3% Hadlock Humerus ?50.8 mm 29w 5d 10% Natalya HC / AC ?1.10 EFW ? 1,466 g ? 6% Hadlock EFW (lb) ? 3 lb EFW (oz) ? 4 oz EFW by: ?Hadlock (QIT-[id number]-FL) Extended Tibia ??48.6 mm 29w 2d 8% Natalya CM ? 8.3 mm ?? 79% Nicolaides Head / Face / Neck Cephalic index 0.75 ? 9% Nicolaides Nasal bone: ?documented previously Extremities / Bony Struc FL / BPD ? 0.74 FL / HC ?0.20 FL / AC ?0.22 Other Structures FHR ?142 bpm Anatomy The following structures appear normal: Head/Neck: Cranium. Cavum septi pellucidi. Cerebellum. Cisterna magna. Parenchyma. Vermis. Heart/Thorax: Situs. Cardiac position. Cardiac axis. Cardiac size. Cardiac rhythm. ? Diaphragm. Abdomen: Abdom. wall. Stomach. Kidneys. Bladder. The following structures could not be adequately visualized: Heart / Thorax 4-chamber view. Interventricular septum. Great vessels. Spine: Cervical spine. Thoracic spine. Lumbar spine. Sacral spine. The following structures were documented previously: Head / Neck ?Lateral ventricles. Choroid plexus. Midline falx. ? Neck. Nuchal fold. Face: Lips. Profile. Nose. Nasal bone. Maxilla. Mandible. Orbits. Heart / Thorax RVOT view. LVOT view. 3-vessel view. 6-vtervh-bjlxkhi view. Aortic arch view. Bicaval view. Ductal arch ? view. ? Right lung. Left lung. Abdomen ?Cord insertion. Right renal artery. Left renal artery. Genitals. Extremities/Skeleton: Right upper arm. Right forearm. Right hand. Left upper arm. Left forearm. Left hand. Right upper leg. ? Right lower leg. Right foot. Left upper leg. Left lower leg. Left foot. Doppler Umbilical Artery: normal PI ?1.17 ? 93% ? Ebbing PS ?-47.60 cm/s TAmax ??-28.84 ??cm/s MD ?-14.47 cm/s S / D ??3.62 ?89% ? Rita Maternal Structures Uterus Visualized Cervix Suboptimal ? Approach - Transabdominal Right Ovary ?Not visualized Left Ovary ? Not visualized Cul de Sac ? Suboptimal Impression Single live intrauterine . growth restriction with EFW measuring at the 6%. AC measures at the 9%. Amniotic fluid MVP measures 4.8 cm. Umbilical artery S/D ratio in normal range. Recommendations Please see follow up MFM documentation from today's encounter. The patient is scheduled in 1 week for Doppler and MVP. The patient is scheduled in 3 weeks for growth and Doppler. Subsequent follow up or other follow up as clinically determined by primary OB provider unless otherwise specified by MFM. Results forwarded to ordering provider so they can follow up with the patient as necessary. Procedure Note Sana Lima MD - 08/17/2025 NAME: TARA PERKINS : 1995 SEX: F Accession Number: [id number] ORDERING PHYSICIAN: SANA LIMA REFERRING PHYSICIAN: SANA LIMA Coding Procedures 99052: Ultrasound, uterus, real time with image documentation, follow up, transabdominal approach per fetus 95965: Doppler velocimetry, ; umbilical artery Indication Screening for follow-up survey, Obesity in , history of gastricbypass , history of PE , History of gestational hypertension , History of prior with gestationaldiabetes , Supervision of high risk , IUGR-Poor growth. History OB History 3. Para 2 Children born living ?37w 2 T2L2 Current Cell free DNA low risk analysis Maternal Assessment Physical Exam Height 152 cm, 5 ft. Initial weight 108 kg, 239 lb. InitialBMI 46.68 kg/m?? Method Transabdominal ultrasound examination. View: Suboptimal view: limited byfetal position and maternal body habitus. Images of optimal diagnostic quality could not be obtained. Wilder . Number of fetuses: 1 Dating LMP on: 01/09/2025 GA by LMP 31 w + 3 d SEBASTIAN by LMP: 10/16/2025 Previous Ultrasound on: 03/20/2025 Type of prior assessment: GA GA at prior assessment date 9 w + 2 d GA by previous U/S 30 w + 5 d SEBASTIAN by previous Ultrasound: 10/21/2025 Ultrasound examination on: 08/17/2025 GA by U/S based upon: AC, BPD, Femur, HC GA by U/S 30 w + 1 d SEBASTIAN by U/S: 10/25/2025 Assigned: based on the LMP, selected on 05/29/2025 Assigned GA (weeks days) 31 w + 3 d Assigned SEBASTIAN: 10/16/2025 General Evaluation Cardiac activity Present. FHR 142 bpm. Presentation: breech Placenta: Placental site: anterior, fundal, previously documented awayfrom cervical os Umbilical cord: Cord vessels: 3 vessel cord. Insertion site: documented previously Amniotic fluid: Amount of AF: normal amount. MVP 4.8 cm Biometry Standard BPD 76.0 mm 30w 3d 15% Hadlock OFD 101.5 mm 32w 6d 84% Natalya HC 282.8 mm 31w 0d 9% Hadlock Cerebellum tr 40.0 mm 32w 1d 53% Hill AC 256.2 mm 29w 6d 9% Hadlock Femur 56.0 mm 29w 3d 3% Hadlock Humerus 50.8 mm 29w 5d 10% Natalya HC / AC 1.10 EFW 1,466 g 6% Hadlock EFW (lb) 3 lb EFW (oz) 4 oz EFW by: Hadlock (PKE-KN-UK-FL) Extended Tibia 48.6 mm 29w 2d 8% Natalya CM 8.3 mm 79% Nicolaides Head / Face / Neck Cephalic index 0.75 9% Nicolaides Nasal bone: documented previously Extremities / Bony Struc FL / BPD 0.74 FL / HC 0.20 FL / AC 0.22 Other Structures FHR 142 bpm Anatomy The following structures appear normal: Head/Neck: Cranium. Cavum septi pellucidi. Cerebellum. Cisterna magna. Parenchyma. Vermis. Heart/Thorax: Situs. Cardiac position. Cardiac axis. Cardiac size. Cardiac rhythm. Diaphragm. Abdomen: Abdom. wall. Stomach. Kidneys. Bladder. The following structures could not be adequately visualized: Heart / Thorax 4-chamber view. Interventricular septum. Great vessels. Spine: Cervical spine. Thoracic spine. Lumbar spine. Sacral spine. The following structures were documented previously: Head / Neck Lateral ventricles. Choroid plexus. Midline falx. Neck. Nuchal fold. Face: Lips. Profile. Nose. Nasal bone. Maxilla. Mandible. Orbits. Heart / Thorax RVOT view. LVOT view. 3-vessel view. 7-hrtmva-ktkmhuo view.Aortic arch view. Bicaval view. Ductal arch view. Right lung. Left lung. Abdomen Cord insertion. Right renal artery. Left renal artery.Genitals. Extremities/Skeleton: Right upper arm. Right forearm. Right hand. Leftupper arm. Left forearm. Left hand. Right upper leg. Right lower leg. Right foot. Left upper leg. Left lower leg. Leftfoot. Doppler Umbilical Artery: normal PI 1.17 93% Ebbing PS -47.60 cm/s TAmax -28.84 cm/s MD -14.47 cm/s S / D 3.62 89% Rita Maternal Structures Uterus Visualized Cervix Suboptimal Approach - Transabdominal Right Ovary Not visualized Left Ovary Not visualized Cul de Sac Suboptimal Impression Single live intrauterine . growth restriction with EFW measuring at the 6%. AC measuresat the 9%. Amniotic fluid MVP measures 4.8 cm. Umbilical artery S/D ratio in normal range. Recommendations Please see follow up MFM documentation from today's encounter. The patient is scheduled in 1 week for Doppler and MVP. The patient is scheduled in 3 weeks for growth and Doppler. Subsequent follow up or other follow up as clinically determined byprimary OB provider unless otherwise specified by MFM. Results forwarded to ordering provider so they can follow up with thepatient as necessary. Authorizing ProviderResult TypeResult StatusSana Lima MDIMG ORDERABLESFinal Result documented in this encounter Visit Diagnoses Diagnosis Pre-diabetes Other abnormal glucose History of gestational diabetes in prior , currently with other poor obstetric history History of Arlene-en-Y gastric bypass Chronic hypertension affecting History of pre-eclampsia in prior , currently in second trimester documented in this encounter Additional Health Concerns AssessmentNoted TimePHQ-9 Depression Total Score: 3:05 PM EDT documented as of this encounter Care Teams Team MemberRelationshipSpecialtyStart DateEnd Date Riddhi Plata MD PCP - GeneralFamily Medicine12/09/23documented as of this encounter
--- OUTSIDE RECORDS SUMMARY | 2025-08-17 13:15 | XMS_ITS | Encounter Summary ---
Author Organization [employer] [facility] westSnabboteket tem Address [id number] [address] [place] [address] Care Team Providers Care Hand Paster Name Role Phone Riddhi Plata MD Primary Care Provider [phone] Reason for Visit * OBGYN (Routine) - Pending ReviewSpecialtyDiagnoses / ProceduresReferred By ContactReferred To ContactMaternal and Medicine Diagnoses Pre-diabetes History of gestational diabetes in prior , currently History of Arlene-en-Y gastric bypass Chronic hypertension affecting Malnutrition following gastrointestinal surgery Procedures nonstress test - Maternal Medicine Sana Lima MD [address] [place] [address] Phone: tel: fax: Maternal- Medicine at [facility] [address] [place] [address] Phone: tel: fax: Referral IDStatusReasonStart DateExpiration DateVisits RequestedVisits [id number] Encounter Details DateTypeDepartmentCare Team (Latest Contact Info)Bbrjnactejx44/08/2025 1:15 PM ESTSupport Visit Maternal- Medicine at [facility] [address] [place] [address] Class 3 severe obesity with body mass index (BMI) of 60.0 to 69.9 in adult, unspecified obesity type, unspecified whether serious comorbidity present ([facility]) (Primary Dx); Pre-diabetes; History of [...] RecordedIn the past 12 months has the [employer], gas, oil, or water [employer] threatened to shut off services in your [...] care, and heating?Not hard at all06/23/2025PHQ-2AnswerDate RecordedTotal Bbviy641RAPARE - TransportationAnswerDate RecordedIn the past 12 months, [...] a household?No06/23/2025hildcareAnswerDate RecordedDo problems getting child welfare assistant make it difficult for you to work or study?No06/23/2025 EmploymentAnswerDate YkffsxrnXlgqrnlstrUiyvwlm55/06/2019Hunger ScreeningAnswer Date RecordedWithin the past 12 months we worried whether our food would run out before we got money to buy more.Never True06/23/2025Within the past 12 months the food we bought just didn't last and we didn't have money to get more.Never True06/23/2025Purpose - LifeAnswerDate RecordedPurpose and direction in life Esryiql46/27/2021Estimated Date of XcjxladqFdcjyqcoVpk32/06/2026Based on last menstrual period of 01/09/2025Sex and Gender InformationValueDate RecordedSex Assigned at OwcxdCagcap68/20/2022 9:31 PM ESTLegal OdySlrqre57/06/2015 11:49 AM EDTGender SwbyviozUztldg14/20/2022 9:31 PM ESTSexual OrientationStraight 07/30/2022 9:31 PM ESTdocumented as of this encounter Last Filed Vital Signs Vital SignReadingTime TakenCommentsBlood Ozpgikzm737/7508/17/2025 2:16 PM EST done at office hkyifDvdmf0576/08/2025 2:15 PM ESTTemperature--Respiratory Rate16 08/17/2025 2:15 PM ESTOxygen Saturation--Inhaled Oxygen Concentration--Weight-- Height--Body Mass Index--documented in this encounter Functional Status * PulseAnswerDate of WvbydkxhktShpaun4356/08/2025 2:15 PM Génesis Saleh RN * RespAnswerDate of EsmwvmrownVwkxlt8218/08/2025 2:15 PM Génesis Saleh RN * NST FHR Assessment FetusQuestionAnswerDate of AssessmentAuthorVariability6-25 BPM08/17/2025 2:23 PM Génesis Saleh RNDecelerationsNone110/18/2024 2:23 PM Génesis Saleh RNAccelerationsYes110/18/2024 2:23 PM Génesis Saleh RNAcoustic WrbuiawfnpRr90/08/2025 2:23 PM Génesis Saleh RN Vdeldrfm16833/08/2025 2:23 PM Génesis Saleh RN * Interpretation (Provider Documentation)QuestionAnswerDate of AssessmentAuthor Multiple Gestation?No08/17/2025 2:23 PM Sana Preston MDNonstress Test JnwqlypxqmgpvfVnzzqngl75/08/2025 2:23 PM Sana Preston MD * VitalsQuestionAnswerDate of AzdsyghghtXgpvgiRQ379/7508/17/2025 2:16 PM Génesis Saleh RN * NST Indication & Uterine AssessmentQuestionAnswerDate of AssessmentAuthor CommentsFKC, bleeding, and labor precautions reviewed and pt verbalizes understanding. Pt eating ice chips aand drinking cold water. Dr Lima here and looked at efm tracing and states pt is OK to be discharged.08/17/2025 2:23 PM Génesis Saleh RNUterine MwypbobuimzjGlo25/08/2025 2:23 PM Génesis Howard RNContractionsNot hysdzea4008/17/2025 2:23 PM Génesis Saleh RN * PulseAnswerDate of GygnmhzvcgOsjiyv5732/08/2025 2:15 PM Génesis Saleh RN * RespAnswerDate of DrlmxyvihnZdycri6866/08/2025 2:15 PM Génesis Saleh RN * VitalsQuestionAnswerDate of EllempmlxsLsznmgLG455/7508/17/2025 2:16 PM Génesis Saleh RN documented as of this encounter Mental Status * PulseAnswerEntry ZosjFgvdnd0796/08/2025 2:15 PM Génesis Saleh RN * RespAnswerEntry OcoqRcdhgh0037/08/2025 2:15 PM Génesis Saleh RN * VitalsQuestionAnswerEntry GmucNxsksqEU0687508/17/2025 2:16 PM Génesis Howard RN documented in this encounter Progress Notes * Génesis [...] Plan of Treatment DateTypeDepartmentCare Team (Latest Contact Info)Dokzcjlhqbb77/29/2025 2:30 PM ESTTelemedicine Maternal- Medicine at [facility] [address] [place] [address] Lara Looney, PAPamelaC [address] [address] 09/08/2025 2:15 PM ESTAppointment [facility] - Ultrasound [address] [place] [address] 09/17/2025 10:15 AM ESTOffice Visit [facility] Pul[facility]Sleep Medicine [address] [place] [address] Jalyn Vidal, DO [address] [address] 09/22/2025 3:15 PM ESTAppointment [facility] - Ultrasound [address] [place] [address] documented as of this encounter Goals GoalPatient Goal TypeAssociated ProblemsRecent ProgressPatient-Stated?Author safe discharge to home Kate Malave RN Note: Evaluation of progress towards goal: safe transition from hospital to home with family support. documented as of this encounter Procedures Procedure NamePriorityDate/TimeAssociated DiagnosisCommentsFETAL NONSTRESS TEST Dddmvft5908/21/2025 9:29 AM EST Pre-diabetes History of gestational [...] obesity type, unspecified whether serious comorbidity present ([facility])- Primary Pre-diabetes Other abnormal glucose History of [...]
--- OUTSIDE RECORDS SUMMARY | 2025-08-24 14:26 | XMS_ITS | Encounter Summary ---
Author Organization [facility] tem Address [facility] [address] [place] [address] Care Team Providers Care Sr. Director Product Management Name Role Phone Riddhi Plata MD Primary Care Provider [phone] Reason for Referral * Diagnostic Imaging (Routine) - Pending ReviewSpecialtyDiagnoses / Procedures Referred By ContactReferred To ContactMaternal and Medicine Diagnoses Obesity in , antepartum Intrauterine growth restriction affecting care of mother, unspecified trimester, not applicable or unspecified fetus Procedures US [facility] with or without consult Sana Lima MD [address] [place] [address] Phone: tel: fax: Maternal- Medicine at [facility] [address] [place] [address] Phone: tel: fax: Referral IDStatusReasonStart DateExpiration DateVisits RequestedVisits [id number] Reason for Visit * Diagnostic Imaging (Routine) - Pending ReviewSpecialtyDiagnoses / Procedures Referred By ContactReferred To ContactMaternal and Medicine Diagnoses Obesity in , antepartum Intrauterine growth restriction affecting care of mother, unspecified trimester, not applicable or unspecified fetus Procedures US [facility] with or without consult Sana Lima MD [address] [place] [address] Phone: tel: fax: Maternal- Medicine at [facility] [address] [place] [address] Phone: tel: fax: Referral IDStatusReasonStart DateExpiration DateVisits RequestedVisits [id number] Encounter Details DateTypeDepartmentCare Team (Latest Contact Info)Klcbbnrfheu18/15/2025 2:26 PM EST - 08/24/2025 11:59 PM ESTHospital Encounter [facility] - [facility] US Imaging [address] [place] [address] Obesity in , antepartum; Intrauterine growth restriction affecting care of mother, unspecified trimester, not applicable or unspecified fetus Discharge Disposition: Home Social History Tobacco UseTypesPacks/DayYears UsedDateSmoking Tobacco: NeverSmokeless Tobacco: NeverAlcohol UseStandard Drinks/WeekCommentsNot Currently0 (1 standard drink = 0.6 oz pure alcohol)[employer] UtilitiesAnswerDate RecordedIn the past 12 months has the [place], [employer], or water [employer] threatened to shut off services in your [...] care, and heating?Not hard at all06/23/2025PHQ-2AnswerDate RecordedTotal Egvkb895 PRAPARE - TransportationAnswerDate RecordedIn the past 12 [...] part of a household?No06/23/2025hildcareAnswerDate RecordedDo problems getting assistant child care teacher make it difficult for you to work or study?No06/23/2025 EmploymentAnswerDate ZjjizdviTunhmsethcJuiyigf08/06/2019Hunger ScreeningAnswer Date RecordedWithin the past 12 months we worried whether our food would run out before we got money to buy more.Never True06/23/2025Within the past 12 months the food we bought just didn't last and we didn't have money to get more.Never True06/23/2025Purpose - LifeAnswerDate RecordedPurpose and direction in life Osubitf33/27/2021Estimated Date of UrkxlatlHehsehkiCma64/06/2026Based on last menstrual period of 01/09/2025Sex and Gender InformationValueDate RecordedSex Assigned at JblgvZiuigk31/20/2022 9:31 PM ESTLegal MgtMdhlir72/06/2015 11:49 AM EDTGender TktzzdrgYikhtm92/20/2022 9:31 PM ESTSexual OrientationStraight 07/30/2022 9:31 PM [...] mouth in the morning. 30 tablet 6005/29/2025 syringe with needle (BD LUER-KARENA SYRINGE) 3 mL 25 x 1 1/2 syringe Indications:History of Arlene-en-Y gastric bypass,Postsurgical malabsorption, Malnutrition following gastrointestinal surgery,B12 deficiency1 SYRG by miscellaneous route every 30 (thirty) days. 3 each blood-glucose sensor (DEXCOM G7 SENSOR) device Indications:Severe obesity due to excess calories affecting in second trimester ([facility]),Hx of gastric bypass1 Device by miscellaneous route every 21 days for 30 days. 3 each /documented as of this encounter Plan of Treatment DateTypeDepartmentCare Team (Latest Contact Info)Khnikfobbxt01/29/2025 2:30 PM ESTTelemedicine Maternal- Medicine at [facility] [address] [place] [phone] Lara Looney, PAPing [address] [address] 09/08/2025 2:15 PM ESTAppointment [facility] - Ultrasound [address] [place] [address] 09/17/2025 10:15 AM ESTOffice Visit [facility] [address] [place] [address] Jalyn Vidal, [address] [address] 09/22/2025 3:15 PM ESTAppointment [facility] - Ultrasound [address] [place] [address] documented as of this encounter Goals GoalPatient Goal TypeAssociated ProblemsRecent ProgressPatient-Stated?Author safe discharge to home Kate Malave RN Note: Evaluation of progress towards goal: safe transition from hospital to home with family support. documented as of this encounter Procedures Procedure NamePriorityDate/TimeAssociated DiagnosisCommentsUS MFM LMTD OB, 1 OR MORE EHBEVAscybbq68/15/2025 3:21 PM EST Obesity in , antepartum [...] PERKINS : 1995 SEX: F Accession Number: [id number] ORDERING PHYSICIAN: SANA LIMA REFERRING PHYSICIAN: GONZALEZ PASCAL Coding Procedures ? 43593: Ultrasound, uterus, real time with image documentation, limited one or more fetuses ? 61907: Doppler velocimetry, ; umbilical artery Indication IUGR-Poor growth, Bariatric surgery complicating , Obesity in , history of PE , History of gestational hypertension , History of prior with gestational diabetes , Supervision of high risk , Obesity in . History OB History ? 3. Para 2 ? [id number] Current Cell free DNA ?low risk analysis [...] MVP measures 5.3 cm. Recommendations Please see [facility] recommendations from prior clinical and/or ultrasound report documentation. The patient is scheduled in 2 week(s) for growth and Doppler. The patient is scheduled in 4 week(s) for Doppler and MVP. Subsequent follow up or other follow up as clinically determined by primary OB provider unless otherwise specified by [facility]. Results forwarded to ordering provider so they can follow up with the patient as necessary. Procedure Note Sana Lima MD - 08/24/2025 NAME: TARA PERKINS : 1995 SEX: F Accession Number: [id number] ORDERING PHYSICIAN: SANA LIMA REFERRING PHYSICIAN: GONZALEZ PASCAL Coding Procedures 97195: Ultrasound, uterus, real time with image documentation, limited one or more fetuses 96718: Doppler velocimetry, ; umbilical artery Indication IUGR-Poor growth, Bariatric surgery complicating , Obesityin , history of PE , History of gestational hypertension , History of prior with gestationaldiabetes , Supervision of high risk , Obesity in . History OB History 3. Para 2 Z4H7O5E0 Current Cell free DNA low risk analysis Maternal Assessment Physical Exam Height 152 cm, 5 ft. Weight 107 kg, 235 lb. Initial iedxle223 kg, 239 lb. BMI 45.90 kg/m??. Initial [...] MVP measures 5.3 cm. Recommendations Please see [facility] recommendations from prior clinical and/or ultrasoundreport [...]
--- OUTSIDE RECORDS SUMMARY | 2025-08-26 11:20 | XMS_ITS | Encounter Summary ---
Author Organization [facility] Address [address] [place] [address] Care Team Providers Care Consumer Advocate Name Role Phone Riddhi Plata MD Primary Care Provider [phone] Reason for Visit * ReasonCommentsRoutine Visit Encounter Details DateTypeDepartmentCare Team (Latest Contact Info)Bgdnkcmddtj17/17/2025 11:20 AM ESTRoutine [facility] Nichole OBLEROY [address] [place] [address] Winter English PA [address] [place] [address] Third trimester ([facility]); 32 weeks gestation of ([facility]); History of diet controlled gestational diabetes mellitus (GDM); H/O gastric bypass; Preeclampsia in period ([facility]); History of pulmonary embolism; Gestational diabetes mellitus (GDM) in third trimester, gestational diabetes method of control unspecified ([facility]) Social History Tobacco UseTypesPacks/DayYears UsedDateSmoking Tobacco: NeverSmokeless Tobacco: NeverAlcohol UseStandard Drinks/WeekCommentsNever0 (1 standard drink = 0.6 oz pure alcohol)Caffeine intake: 1-2 cups per day coffeeEstimated Date of QcydalhgWwtnvugzOyl68/06/2026Based on last menstrual period of 01/09/2025Sex and Gender InformationValueDate RecordedSex Assigned at BirthNot on fileLegal Sex Qqqgtm8111/22/2022 9:44 PM EDTGender IdentityNot on fileSexual OrientationNot on filedocumented as of this encounter Last Filed Vital Signs Vital SignReadingTime TakenCommentsBlood Yvwmmiad488/7012 11:35 AM EST Pulse--Temperature--Respiratory Rate--Oxygen Saturation--Inhaled Oxygen Concentration--Cqjyjk527 kg (236 lb)08/26/2025 11:35 AM ESTHeight--Body Mass [...] body mass index of 60.0-69.9 in adult ([facility]) 01/26/2023 Polycystic ovarian disease 01/26/2023 Primary hypertension 01/26/2023 Adjustment disorder with anxiety 11/30/2021 Amnesia 05/17/2023 Anxiety 07/07/2019 Anemia 06/26/2019 Depression 06/13/2019 Disorder of endocrine system 05/17/2023 Family history of diabetes during 11/28/2021 Family history of thrombosis 03/17/2022 Frequent headaches 05/17/2023 Gastroesophageal reflux disease 12/15/2019 Gestational diabetes mellitus (GDM) ([facility]) 12/09/2018 History of diet controlled gestational diabetes mellitus (GDM) 11/30/2021 Iron deficiency anemia 12/29/2019 Irregular periods 05/17/2023 Menorrhagia with regular cycle 05/17/2023 Asthma (HCC) 12/09/2018 Class 3 severe obesity due to excess calories with serious comorbidity and body mass index (BMI) of50.0 to 59.9 in adult ([facility] [place] [place] 05/17/2023 Nausea and vomiting 05/17/2023 Pneumonia due to infectious organism 07/30/2022 Preeclampsia in period ([facility]) 11/26/2021 Acute pulmonary embolism ([facility]) 05/17/2023 Single subsegmental pulmonary embolism without acute cor pulmonale ([facility]) 05/17/2023 Seasonal allergic rhinitis due to pollen 12/15/2019 Thyroid nodule 05/17/2023 Urinary tract infection without hematuria 05/17/2023 LUCIANO on CPAP 02/22/2023 History of pulmonary embolism 03/17/2022 H/O gastric bypass 04/20/2025 Resolved Ambulatory Problems Diagnosis Date Noted No Resolved Ambulatory Problems Past Medical History: Diagnosis Date Acute memory impairment COVID 02/2020 Encounter for insertion of Mirena IUD GERD without esophagitis Gestational diabetes ([facility]) H/O blood clots H/O: hypertension High blood pressure History of being hospitalized Hormone imbalance Intrauterine device surveillance Irregular bleeding Morbid obesity with BMI of 50.0-59.9, adult ([facility] [place] [place]) Nausea Nausea with vomiting Pneumonia 07/30/2022 hypertension ([facility]) Pulmonary embolism ([facility]) 11/2021 Well woman exam HISTORY PAST MEDICAL HISTORY SOCIAL HISTORY Past Medical History: Diagnosis Date Acute memory impairment Anemia Asthma (HCC) COVID 02/2020 Depression Encounter for insertion of Mirena IUD Frequent headaches GERD without esophagitis Gestational diabetes ([facility]) H/O blood clots H/O gastric bypass H/O: hypertension High blood pressure History of being hospitalized Pt was re-admitted to [facility] for HTN (11/2021) , Pt had a baby (11/21/21) Hormone imbalance Intrauterine device surveillance Irregular bleeding Morbid obesity with BMI of 50.0-59.9, adult ([facility]) Nausea Nausea with vomiting Pneumonia 07/30/2022 hypertension ([facility]) Pulmonary embolism (HCC) 11/2021 Rt. ; [address]. [...] was 01/09/2025. Assessment/Plan ICD-10-CM 1. Third trimester ([facility]) Z34.93 2. 32 weeks gestation of ([facility]) Z3A.32 3. History of diet controlled gestational diabetes mellitus (GDM) Z86.32 4. H/O gastric bypass Z98.84 5. Preeclampsia in period ([facility]) O14.95 6. History of pulmonary embolism Z86.711 7. Gestational diabetes mellitus (GDM) in third trimester, gestational diabetes method of control unspecified ([facility]) O24.419 Assessment/Plan Return OB: Patient presents [...] Plan of Treatment DateTypeDepartmentCare Team (Latest Contact Info)Dvmyuercquv40/31/2025 9:40 AM ESTRoutine [facility] Nichole OBGYN [address] [place] [address] Nena Spicer NP [address] [place] [address] documented as of this encounter Goals GoalPatient Goal TypeAssociated ProblemsRecent ProgressPatient-Stated?Author Help patient manage antidepressant medication Care PlanPatient on antidepressant monitoring Riddhi Mcdonald MD Baseline PHQ-9 Care PlanBaseline PHQ-9Riddhi Lerma MDdocumented as of this encounter Procedures Procedure NamePriorityDate/TimeAssociated DiagnosisCommentsPOCT URINALYSIS PHQCUGAOCkgphpd36/17/2025 11:37 AM EST Third trimester ([facility]) documented in this encounter Results * [...] / LateralityCollection Method / VolumeCollection Time Received HrjsSiygn20/17/2025 11:37 AM EST Narrative Authorizing ProviderResult TypeResult StatusWinchester Medical Center TEST ENTER/EDIT ORDERABLESFinal Result documented in this encounter Visit Diagnoses Diagnosis Third trimester ([facility]) state, incidental 32 weeks gestation of ([facility]) History of diet controlled gestational diabetes mellitus (GDM) H/O gastric bypass Preeclampsia in period ([facility]) History of pulmonary embolism Personal history of venous thrombosis and embolism Gestational diabetes mellitus (GDM) in third trimester, gestational diabetes method of control unspecified ([facility]) documented in this encounter Additional Health Concerns Active ProblemsNoted DateDiagnosed DatePatient on antidepressant monitoring plan 4Baseline PHQ-904documented as of this encounter Care Teams Team MemberRelationshipSpecialtyStart DateEnd Date Riddhi Plata MD [address] [place] [address] PCP - GeneralFamily Medicine01/16/23documented as of this encounter
--- OUTSIDE RECORDS SUMMARY | 2025-08-27 14:30 | XMS_ITS | Encounter Summary ---
Author Organization [facility] tem Address [id number] [address] [place] [address] Care Team Providers Care Wood Preserving Plant Laborer Name Role Phone Riddhi Plata MD Primary Care Provider [phone] Encounter Details DateTypeDepartmentCare Team (Latest Contact Info)Whoaedicoht79/18/2025 2:30 PM ESTTelemedicine Maternal- Medicine at [facility] [address] [place] [phone] Viky Romano, RESERVATIONS AGENT-ANGLE SHEAR OPERATOR [address] [place] [address] Anxiety and depression (Primary Dx); History of pulmonary embolism; Mild intermittent asthma, unspecified whether complicated; Severe obesity due to excess calories affecting in second trimester ([facility]); Hx of gastric bypass Social History [...] care, and heating?Not hard at all06/23/2025PHQ-2AnswerDate RecordedTotal Fpzym919 PRAPARE - TransportationAnswerDate RecordedIn the past 12 [...] of a household?No06/23/2025hildcareAnswerDate RecordedDo problems getting children's zoo caretaker make it difficult for you to work or study?No06/23/2025 EmploymentAnswerDate OzstzoegIcftacxaedAfrubca18/06/2019Hunger ScreeningAnswer Date RecordedWithin the past 12 months we worried whether our food would run out before we got money to buy more.Never True06/23/2025Within the past 12 months the food we bought just didn't last and we didn't have money to get more.Never True06/23/2025Purpose - LifeAnswerDate RecordedPurpose and direction in life Sgeplzu46/27/2021Estimated Date of NfpemhwzCcwilhduCwm44/06/2026Based on last menstrual period of 01/09/2025Sex and Gender InformationValueDate RecordedSex Assigned at DqpynVkyaay08/20/2022 9:31 PM ESTLegal TdwPplirg28/06/2015 11:49 AM EDTGender MmmjcbufXliqxp92/20/2022 9:31 PM ESTSexual OrientationStraight 07/30/2022 9:31 PM ESTdocumented as of this encounter Progress Notes * Viky Romano, RESERVATIONS AGENT-ANGLE SHEAR OPERATOR - 08/27/2025 2:30 PM EST REASON FOR OFFICE VISIT: Video Visit via Real-time Synchronous Audiovisual Provider Location: [facility]- MEDICINE AT [address] [phone] Patient Location: Patient's home Video Visit Consent [...] that there are some limitations compared to swin-to-zuwy evaluations. The patient consented to the presence [...] pain. +. She is being followed at [facility] due to GDMA2. States she is [...] 04/23/2024 Performed by Ken Manzo MD at [facility] 06/14/2020 US Guided [...] TSH 1.53 03/24/2024 No results found for: [id number] Lab Results Component Value Date CREATININE 0.44 [...] baby. Little research has been done on mcc effects of Metformin exposure to the fetus. [...] values to us weekly by e-mail to: [email or web address] or by fax to: [phone] TIME OF CONSULTATION: 45 minutes with the patient, >50% in discussion and counseling, coordination of care which was ejox-zz-tyqn, review of records and communication back to referring provider. MARCEL Renee 08/27/25 1517 documented in this encounter Plan of Treatment DateTypeDepartmentCare Team (Latest Contact Info)Pxyyypvqubi86/29/2025 2:30 PM ESTTelemedicine Maternal- Medicine at [facility] [address] [place] [address] Lara Looney PA-C [address] [address] 09/08/2025 2:15 PM ESTAppointment [facility] - Ultrasound [address] [place] [address] 09/17/2025 10:15 AM ESTOffice Visit [facility] Pulmonary/Sleep Medicine [address] [address] Jalyn Vidal, DO [address] [address] 09/22/2025 3:15 PM ESTAppointment [facility] - Ultrasound [address] [place] [address] documented as of this encounter Goals GoalPatient [...] to excess calories affecting in second trimester ([facility]) Hx of gastric bypass documented in this encounter Additional Health Concerns AssessmentNoted TimePHQ-9 Depression Total Score: 3:05 PM EDT documented as of this encounter Care Teams Team MemberRelationshipSpecialtyStart DateEnd Date Riddhi Plata MD PCP - GeneralFamily Medicine12/09/23documented as of this encounter
--- NOTE | 2025-09-01 | US_ITS ---
The [address] [address] Patient Name: MADDIE PACHECO MRN: [id number] date: 1995 Sex: F Assigned Patient Location: US Current Patient Location: US Accession/Order Number: [id number] Exam Date: 09/01/2025 11:05 Report Date: 09/01/2025 11:45 At the request of: GONZALEZ PASCAL DO Procedure: US OB BPP w non-stress BIOPHYSICAL PROFILE: CLINICAL INFORMATION: PRIMARY HYPERTENSION COMPARISON: 08/25/2025 There is a single live intrauterine gestation in cephalic presentation. The reported gestational age is 33 weeks 4 days. The heart rate measures 148 beats per minute. FINDINGS: TONE: 1 or more episodes of activity extension and flexion of extremity or opening and closing of the hand [Y] 2/2 GROSS BODY MOVEMENTS: 3 or more discrete body or limb movements [Y] 2/2 BREATHING MOVEMENTS: 1 or more episodes of breathing lasting at least 30 seconds [Y] 2/2 MELY: A single deepest vertical pocket of amniotic fluid greater than 2 cm [Y] 2/2 MELY: 15.6 cm Total score: 8/8 US/US OB BPP w non-stress IMPRESSION: NORMAL BIOPHYSICAL PROFILE Impression dictated by: Lakshmi Harmon M.D. 09/01/2025 11:45 AM Dictation Location: [place] [address] Electronically authenticated by: [id number] Y Date: 09/01/2025 11:45
--- OUTSIDE RECORDS SUMMARY | 2025-09-01 11:06 | XMS_ITS | Encounter Summary ---
Author Organization [facility] tem Address [id number] [address] [place] [address] Care Team Providers Care Supervisor Intermediates Name Role Phone Riddhi Plata MD Primary Care Provider [phone] Reason for Referral * Diagnostic Imaging (Routine) - Pending ReviewSpecialtyDiagnoses / Procedures Referred By ContactReferred To ContactMaternal and Medicine Diagnoses Poor growth affecting management of mother in third trimester, single or unspecified fetus Procedures US MFM with or without consult Sana Lima MD [address] [place] [address] Phone: tel: fax: Maternal- Medicine at [facility] [address] [place] [address] Phone: tel: fax: Referral IDStatusReasonStart DateExpiration DateVisits RequestedVisits [id number] [id number] Encounter Details DateTypeDepartmentCare Team (Latest Contact Info)Bopoegwkddv48/16/2025Orders Only Maternal- Medicine at [facility] [address] [place] [address] Josie Corona, RN Poor growth affecting management of mother in third trimester, single or unspecified fetus (Primary Dx) Social History Tobacco UseTypesPacks/DayYears UsedDateSmoking Tobacco: NeverSmokeless Tobacco: NeverAlcohol UseStandard Drinks/WeekCommentsNot Currently0 (1 standard drink = 0.6 oz pure alcohol)Pending sale to [facility] UtilitiesAnswerDate RecordedIn the past 12 months has the [employer], gas, oil, or water [facility] threatened to shut off services in your [...] care, and heating?Not hard at all06/23/2025PHQ-2AnswerDate RecordedTotal Rnrww147 PRAPARE - TransportationAnswerDate RecordedIn the past 12 [...] part of a household?No06/23/2025hildcareAnswerDate RecordedDo problems getting registered nurse maternal child make it difficult for you to work or study?No06/23/2025 EmploymentAnswerDate KtpatjofUcuanbidvyMpfuaqs62/06/2019Hunger ScreeningAnswer Date RecordedWithin the past 12 months we worried whether our food would run out before we got money to buy more.Never True10/14/2025Within the past 12 months the food we bought just didn't last and we didn't have money to get more.Never True06/23/2025Purpose - LifeAnswerDate RecordedPurpose and direction in life Sfhhyvn98/27/2021Estimated Date of TkxwohciZhvlzdsqDss56/06/2026Based on last menstrual period of 01/09/2025Sex and Gender InformationValueDate RecordedSex Assigned at JphfaDvzadx14/20/2022 9:31 PM ESTLegal LllWlfpye01/06/2015 11:49 AM EDTGender FqyvxdvvOjxfca02/20/2022 9:31 PM ESTSexual OrientationStraight 07/30/2022 9:31 PM ESTdocumented as of this encounter Plan of Treatment DateTypeDepartmentCare Team (Latest Contact Info)Jycuemffuai03/29/2025 2:30 PM ESTTelemedicine Maternal- Medicine at [facility] [address] [place] [address] Lara Looney PA-C [address] [address] 09/08/2025 2:15 PM ESTAppointment [facility] - Ultrasound [address] [place] [phone] 09/17/2025 10:15 AM ESTOffice Visit [facility]icians Pulmonary/Sleep Medicine [address] [place] [place] [address] Jalyn Vidal, DO [address] [address] 09/22/2025 3:15 PM ESTAppointment [facility] - Ultrasound [address] [place] [phone] NameTypePriorityAssociated DiagnosesOrder ScheduleUS MFM with or without [...]
--- OUTSIDE RECORDS SUMMARY | 2025-09-01 11:06 | XMS_ITS | Encounter Summary ---
Author Organization [facility] tem Address [id number] [address] [place] [address] Care Team Providers Care Tool Profiling Machine Set Up Operator Name Role Phone Riddhi Plata MD Primary Care Provider Encounter Details DateTypeDepartmentCare Team (Latest Contact Info)Yblyxotmhwb39/15/2025Orders Only Maternal- Medicine at [facility] [address] [place] [phone] Sana Lima MD [address] [place] [address] Severe obesity due to excess calories affecting in second trimester ([facility]) (Primary Dx); Hx of gastric bypass Social History Tobacco UseTypesPacks/DayYears UsedDateSmoking Tobacco: NeverSmokeless Tobacco: NeverAlcohol UseStandard Drinks/WeekCommentsNot Currently0 (1 standard drink = 0.6 oz pure alcohol)socialMEM[facility]IAL [facility] UtilitiesAnswerDate RecordedIn the past 12 [...] care, and heating?Not hard at all06/23/2025PHQ-2AnswerDate RecordedTotal Xdoaz691 PRAPARE - TransportationAnswerDate RecordedIn the past 12 [...] for you to work or study?No06/23/2025 EmploymentAnswerDate RbhqrmhyIrgbcojqsrRixooqd56/06/2019Hunger ScreeningAnswer Date RecordedWithin the past 12 months we worried whether our food would run out before we got money to buy more.Never True06/23/2025Within the past 12 months the food we bought just didn't last and we didn't have money to get more.Never True06/23/2025Purpose - LifeAnswerDate RecordedPurpose and direction in life Lhtlzma66/27/2021Estimated Date of JmcujmbdPgyhgmkdSiz60/06/2026Based on last menstrual period of 01/09/2025Sex and Gender InformationValueDate RecordedSex Assigned at DlyhsLsjzvf76/20/2022 9:31 PM ESTLegal FfwHrhzub61/06/2015 11:49 AM EDTGender AnghuvliAyvpcx16/20/2022 9:31 PM ESTSexual OrientationStraight 07/30/2022 9:31 PM ESTdocumented as of this encounter Plan of Treatment DateTypeDepartmentCare Team (Latest Contact Info)Oqutgkocgmp13/29/2025 2:30 PM ESTTelemedicine Maternal- Medicine at [facility] [address] [place] [address] Lara Looney PA-C [address] [place] [address] 09/08/2025 2:15 PM ESTAppointment [facility] - Ultrasound [address] [place] [phone] 09/17/2025 10:15 AM ESTOffice Visit [facility] Pul[facility]Sleep Medicine [address] [facility] [place] [phone] Jalyn Vidal, DO [address] [address] 09/22/2025 3:15 PM ESTAppointment [facility] - Ultrasound [address] [place] [address] documented as of this encounter Goals GoalPatient Goal TypeAssociated ProblemsRecent ProgressPatient-Stated?Author safe discharge to home Kate Malave RN Note: Evaluation of progress towards goal: safe transition from hospital to home with family support. documented as of this encounter Visit Diagnoses Diagnosis Severe obesity due to excess calories affecting in second trimester ([facility])- Primary Hx of gastric bypass documented in this encounter Additional Health Concerns AssessmentNoted TimePHQ-9 Depression Total Score: 3:05 PM EDT documented as of this encounter Care Teams Team MemberRelationshipSpecialtyStart DateEnd Date Riddhi Plata MD PCP - GeneralFamily Medicine12/09/23documented as of this encounter
--- OUTSIDE RECORDS SUMMARY | 2025-09-01 11:06 | XMS_ITS | Encounter Summary ---
Author Organization [employer] tem Address [facility][id number] [address] [place] [address] Care Team Providers Care Oracle Business Analyst Name Role Phone Riddhi Plata MD Primary Care Provider [phone] Encounter Details DateTypeDepartmentCare Team (Latest Contact Info)Mzyqrfinveq59/15/2025Travel Social History Tobacco UseTypesPacks/DayYears UsedDateSmoking Tobacco: NeverSmokeless Tobacco: NeverAlcohol UseStandard Drinks/WeekCommentsNot Currently0 (1 standard drink = 0.6 oz pure alcohol)socialAH UtilitiesAnswerDate RecordedIn the past 12 months has the [employer], gas, oil, or water [employer] threatened to shut off services in your [...] care, and heating?Not hard at all06/23/2025PHQ-2AnswerDate RecordedTotal Cohla938/ PRAPARE - TransportationAnswerDate RecordedIn the past 12 [...] for you to work or study?No06/23/2025 EmploymentAnswerDate PuruhuydQrvsttgghaUxeejfa17/06/2019Hunger ScreeningAnswer Date RecordedWithin the past 12 months we worried whether our food would run out before we got money to buy more.Never True06/23/2025Within the past 12 months the food we bought just didn't last and we didn't have money to get more.Never True06/23/2025Purpose - LifeAnswerDate RecordedPurpose and direction in life Vbhqzca85/27/2021Estimated Date of OdxunyyuLrbdlndiAdq46/06/2026Based on last menstrual period of 01/09/2025Sex and Gender InformationValueDate RecordedSex Assigned at PdcooOjsibd21/20/2022 9:31 PM ESTLegal JwtXyiuie76/06/2015 11:49 AM EDTGender WhncfcydJuzklx93/20/2022 9:31 PM ESTSexual OrientationStraight 07/30/2022 9:31 PM ESTdocumented as of this encounter Plan of Treatment DateTypeDepartmentCare Team (Latest Contact Info)Ghsxzvwfrxn99/29/2025 2:30 PM ESTTelemedicine Maternal- Medicine at [facility] [address] [place] [phone] Lara Looney, AMARILYS [address] [address] 09/08/2025 2:15 PM ESTAppointment [facility] - Ultrasound [address] [facility] [place] [phone] 09/17/2025 10:15 AM ESTOffice Visit [facility] [address] [place] [address] Jalyn Vidal, DO [address] [address] 09/22/2025 3:15 PM ESTAppointment [facility] - Ultrasound [address] [place] [place] [phone] documented as of this encounter Goals GoalPatient [...]
--- OUTSIDE RECORDS SUMMARY | 2025-09-01 11:06 | XMS_ITS | Encounter Summary ---
Author Organization [facility] Address [address] [place] [address] Care Team Providers Care Master Naval Parachutist Name Role Phone Riddhi Plata MD Primary Care Provider [phone] Encounter Details DateTypeDepartmentCare Team (Latest Contact Info)Ibxurqvtkcd81/16/2025bstract CHEVY TAYLOR [address] [place] [address] Bin Morales DO [address] [place], [facility] Social History Tobacco UseTypesPacks/DayYears UsedDateSmoking Tobacco: NeverSmokeless Tobacco: NeverAlcohol UseStandard Drinks/WeekCommentsNever0 (1 standard drink = 0.6 oz pure alcohol)Caffeine intake: 1-2 cups per day coffeeEstimated Date of KfropcyyKpjucnadBrf28/06/2026Based on last menstrual period of 01/09/2025Sex and Gender InformationValueDate RecordedSex Assigned at BirthNot on fileLegal Sex Ozthdk2211/22/2022 9:44 PM EDTGender IdentityNot on fileSexual OrientationNot on filedocumented as of this encounter Plan of Treatment DateTypeDepartmentCare Team (Latest Contact Info)Dzroooarhia03/31/2025 9:[address] [place] [address] Nena Spicer, STEM ASSEMBLER [address] [place] [address] documented as of this encounter Goals [...] DateEnd Date Riddhi Plata MD [address] [place] [address] PCP - GeneralFamily Medicine01/16/23documented as of this encounter
--- OUTSIDE RECORDS SUMMARY | 2025-09-01 11:06 | XMS_ITS | Encounter Summary ---
Author Organization [facility] tem Address [id number] [address] [place] [address] Care Team Providers Care Forming Operator Name Role Phone Riddhi Plata MD Primary Care Provider [phone] Encounter Details DateTypeDepartmentCare Team (Latest Contact Info)Mbvjkeydurf04/18/2025Telephone Maternal- Medicine at [facility] [address] [facility] [place] [phone] Cristhian Taylor Social History Tobacco UseTypesPacks/DayYears UsedDateSmoking Tobacco: NeverSmokeless Tobacco: NeverAlcohol UseStandard Drinks/WeekCommentsNot Currently0 (1 standard drink = 0.6 oz pure alcohol)[facility] UtilitiesAnswerDate RecordedIn the past 12 months has the [employer], gas, oil, or water [employer] threatened to shut off services in your [...] care, and heating?Not hard at all06/23/2025PHQ-2AnswerDate RecordedTotal [id number] PRAPARE - TransportationAnswerDate RecordedIn the past 12 [...] a household?No06/23/2025hildcareAnswerDate RecordedDo problems getting child care worker make it difficult for you to work or study?No06/23/2025 EmploymentAnswerDate ThuzrkjaKpbceeckdtSwpzewe03/06/2019Hunger ScreeningAnswer Date RecordedWithin the past 12 months we worried whether our food would run out before we got money to buy more.Never True06/23/2025Within the past 12 months the food we bought just didn't last and we didn't have money to get more.Never True06/23/2025Purpose - LifeAnswerDate RecordedPurpose and direction in life Uirlcvk68/27/2021Estimated Date of WzlycpzjOeosuoyjVtb90/06/2026Based on last menstrual period of 01/09/2025Sex and Gender InformationValueDate RecordedSex Assigned at DhtzuCfrdzo88/20/2022 9:31 PM ESTLegal FfzHecpts64/06/2015 11:49 AM EDTGender PsycugcxEarljr23/20/2022 9:31 PM ESTSexual OrientationStraight 07/30/2022 9:31 PM ESTdocumented as of this encounter Miscellaneous Notes * Telephone Encounter - Cristhian Taylor - 08/27/2025 3:14 PM EST Called pt and lmom in regards to scheduling 2 week follow up with a provider for diabetes. Told to call schedulers when able to do so. ramya documented in this encounter Plan of Treatment DateTypeDepartmentCare Team (Latest Contact Info)Rqqqogiqaqb72/29/2025 2:30 PM ESTTelemedicine Maternal- Medicine at [facility] [address] [place] [address] Lara Looney PA-C [address] [facility] [address] [place] [address] 09/08/2025 2:15 PM ESTAppointment [facility] [address] [place] [phone] 09/17/2025 10:15 AM ESTOffice Visit [facility] [address] [facility] [place] [phone] Jalyn Vidal DO [address] [address] 09/22/2025 3:15 PM ESTAppointment [facility] [address] [place] [phone] documented as of this encounter Goals GoalPatient [...]
--- OUTSIDE RECORDS SUMMARY | 2025-09-01 11:06 | XMS_ITS | Clinical Summary ---
Author Organization [employer] tem Address [id number] [place] [address] Care Team Providers Care Riverboat Captain Name Role Phone Riddhi Plata MD Primary Care Provider [phone] Allergies Active AllergyReactionsCriticalityNoted DateCommentsSumatriptanAnaphylaxis,Other (See Comments)High11/28/2018 IMITREX [...] start of a meal 100 strip 5Active insulin lispro (HumaLOG) 100 unit/mL insulin pen Prime with 2 units then inject 2 units before breakfast, 2 units before lunch and 2 units before dinner 15 mL 5Active pen needle, diabetic (BD ULTRA-FINE RENATA PEN NEEDLE) 32 gauge x 5/32 needle Use a new needle with each injection ( 3 to 5 times per day) 100 each 5Active blood-glucose sensor (DEXCOM G7 SENSOR) device Indications:Severe obesity due to excess calories affecting in second trimester ([facility]),Hx of gastric bypass1 Device by miscellaneous route every 10 days for 30 days. 3 each 506Active blood-glucose sensor (DEXCOM G7 SENSOR) device Indications:Severe obesity due to excess calories affecting in second trimester ([facility]),Hx of gastric bypass1 Device by miscellaneous route every 21 days for 30 days. 3 each Discontinued(Reorder) Active Problems ProblemNoted DateDiagnosed DateH/O gastric uullue5012/30/2024Postsurgical ectsdphrqwhgv08/22/2025Malnutrition following gastrointestinal veldtku6712/30/2024 Class 3 severe obesity with body mass index (BMI) of 60.0 to 69.9 in adult 04/23/2024OSA on CPAP02/22/2023History of pulmonary ygirilhs19/08/2022Family history of faosgeohpb94/08/5249Gdhdal44/01/2019Estimated Date of DdswjffyEqyjbdapWaw93/06/2026ased on last menstrual period of 01/09/2025 Resolved Problems ProblemNoted DateDiagnosed DateResolved DatePneumonia due to infectious organism, unspecified laterality, unspecified part of lung/ Gestational mcfufbpx84reeclampsia, Encounters DateTypeDepartmentCare CnwnAfxpawdspnl03/18/2025 2:30 PM ESTTelemedicine Maternal- Medicine at [facility] [address] [place] [address] Viky Romano APRN-DEREK Anxiety and depression (Primary Dx); History of pulmonary embolism; Mild intermittent asthma, unspecified whether complicated; Severe obesity due to excess calories affecting in second trimester ([facility]); Hx of gastric vrilft3308/27/2025Telephone Maternal- Medicine at [facility] [address] [place] [address] Cristhian Taylor 08/25/2025Telephone Maternal- Medicine at [facility] [address] [place] [address] Shayla Alex RN 08/25/2025Orders Only Maternal- Medicine at [facility] [address] [place] [address] Josie Corona RN Poor growth affecting management of mother in third trimester, single or unspecified fetus (Primary Dx)08/24/2025 2:26 PM EST - 08/24/2025 11:59 PM EST Hospital Encounter [facility] - [facility] US Imaging [address] [place] [address] Obesity in , antepartum; Intrauterine growth restriction affecting care of mother, unspecified trimester, not applicable or unspecified fetus Discharge Disposition: Home08/24/2025Orders Only Maternal- Medicine at [facility] [address] [place] [address] Sana Rowe MD Severe obesity due to excess calories affecting in second trimester ([facility]) (Primary Dx); Hx of gastric lestoo1708/24/20255919Gpyjcc78/08/2025 1:15 PM ESTSupport Visit Maternal- Medicine at [facility] [address] [place] [address] Class 3 severe obesity with body mass index (BMI) of 60.0 to 69.9 in adult, unspecified obesity type, unspecified whether serious comorbidity present ([facility]) (Primary Dx); Pre-diabetes; History of gestational diabetes in prior , currently ; History of Arlene-en-Y gastric bypass; Chronic hypertension affecting ; Malnutrition following gastrointestinal surgery; History of pulmonary embolism; H/O gastric fciypo6108/17/2025 12:30 PM ESTOffice Visit Maternal- Medicine at [facility] [address] [place] [address] Sana Rowe MD 31 weeks gestation of (Primary Dx); Poor growth affecting management of mother in third trimester, single or unspecified fetus; H/O gastric bypass; History of pulmonary embolism; Chronic hypertension affecting dddutpihy39/08/2025 11:02 AM EST - 08/17/2025 11:59 PM ESTHospital Encounter [facility] - [facility] US Imaging [address] [place] [address] Pre-diabetes; History of gestational diabetes in prior , currently ; History of Arlene-en-Y gastric bypass; Chronic hypertension affecting ; History of pre-eclampsia in prior , currently in second trimester Discharge Disposition: Home08/17/2025Documentation Maternal- Medicine at [facility] [address] [place] [address] Anne Pozo RN 08/17/2025Orders Only Maternal- Medicine at [facility] [address] [place] [address] Anne Pozo, RN Pre-diabetes (Primary Dx); History of gestational diabetes in prior , currently ; History of Arlene-en-Y gastric bypass; Chronic hypertension affecting ; Malnutrition following gastrointestinal klaonrn9708/17/20250210Nnknfc31/25/2025Refill [facility] General Surgery-Bariatric [address] [facility] [address] [place] [address] Moriah Liar PA-C History of Arlene-en-Y gastric bypass; Postsurgical malabsorption; Malnutrition following gastrointestinal surgery; B12 alayuquprw12/20/2025Refill [facility] General [facility]-Bariatric [address] [facility] [place] [address] Moriah Lira PA-C History of Arlene-en-Y gastric bypass; Postsurgical malabsorption; Malnutrition following gastrointestinal surgery; B12 /07/2025Telephone [facility] Pulmonary/Sleep Medicine [address] [facility] [address] [place] [address] Lyla Butt RN 07/09/2025 11:30 AM EDTOffice Visit Maternal- Medicine at [facility] [address] [place] [address] Sana Rowe MD Pre-diabetes (Primary Dx); 20 weeks gestation of ; History of gestational diabetes in prior , currently pgenlciz75/30/2025 9:45 AM EDT - 07/09/2025 11:59 PM EDTHospital Encounter [facility] - [facility] US Imaging [address] [place] [address] 20 weeks gestation of ; Chronic hypertension affecting ; History of pre-eclampsia in prior , currently in second trimester; History of gestational diabetes in prior , currently in second trimester; History of prediabetes; Bariatric surgery status complicating , second trimester; Severe obesity due to excess calories affecting , antepartum ([facility]); History of maternal pulmonary embolus; Obstructive sleep apnea; History of gestational diabetes in prior , currently ; Depression affecting ; Anxiety disorder affecting , antepartum Discharge Disposition: Home07/09/2025Orders Only Maternal- Medicine at [facility] [address] [place] [address] Anne Pozo RN Pre-diabetes (Primary Dx); History of gestational diabetes in prior , currently ; History of Arlene-en-Y gastric bypass; Chronic hypertension affecting ; History of pre-eclampsia in prior , currently in second plxzeszdg51/30/3950Vatuvj96/24/2025Telephone [facility] General Surgery-Bariatric [address] [facility] [place] [address] Ken Manzo MD 06/25/2025Orders Only Maternal- Medicine at [facility] [address] [place] [address] Winter Gibbons LPN History of gestational diabetes in prior , currently in second trimester (PrimaryDx); History of prediabetes; History of gestational diabetes in prior , currently wrqnluuw91/14/2025 4:05 AM EDT - 06/23/2025 9:28 AM EDTEmerFort [facility] - [facility] [address] [place] [address] Spencer Melendez DO Kovach, Corie L, MD Abdominal pain of multiple sites (Primary Dx) Discharge Disposition: Home06/23/20255257Ddkdfi18/13/2025Telephone Maternal- Medicine at [facility] [address] [place] [address] Winter Gibbons LPN 06/17/2025 10:39 AM EDT - 06/17/2025 12:10 PM EDTEmerFort [facility] - [facility] [address] [place] [address] Jaswinder Melvin MD Symptomatic cholelithiasis (Primary Dx) Discharge Disposition: Home06/17/20258659Urpwgd74/08/2025Telephone Maternal- Medicine at [facility] [address] [place] [address] Winter Gibbons LPN 06/16/2025Refill [facility] General Surgery-Bariatric [address] [facility] [place] [address] Moriah Lira, PA-C History of Arlene-en-Y gastric bypass; Postsurgical malabsorption; Malnutrition following gastrointestinal surgery; B12 xlcbzlvloa94/29/2025Orders Only Maternal- Medicine at [facility] [address] [place] [address] Maisha Pratt MD History of Arlene-en-Y gastric bypass; Postsurgical malabsorption; Malnutrition following gastrointestinal surgery; Folate deficiency; Iron deficiencyfrom Last 3 Months Immunizations No known [...] drink = 0.6 oz pure alcohol)[facility] UtilitiesAnswerDate RecordedIn the past 12 months has the [employer], gas, oil, or water [employer] threatened to shut off services in [...] care, and heating?Not hard at all06/23/2025PHQ-2AnswerDate RecordedTotal Iqpfi822RAPARE - TransportationAnswerDate RecordedIn the past 12 months, [...] household?No06/23/2025hildcareAnswerDate RecordedDo problems getting child care associate teacher make it difficult for you to work or study?No06/23/2025 EmploymentAnswerDate KiolwgeeIlkftsbaqfChbgrwl11/06/2019Hunger ScreeningAnswer Date RecordedWithin the past 12 months we worried whether our food would run out before we got money to buy more.Never True06/23/2025Within the past 12 months the food we bought just didn't last and we didn't have money to get more.Never True06/23/2025Purpose - LifeAnswerDate RecordedPurpose and direction in life Inbingn81/27/2021Estimated Date of IxdmwfzqAzbhffexOsg63/06/2026Based on last menstrual period of 01/09/2025Sex and Gender InformationValueDate RecordedSex Assigned at CxmxiAtclds04/20/2022 9:31 PM ESTLegal AxcTrbmvu00/06/2015 11:49 AM EDTGender OjzrpvsfPvsefl57/20/2022 9:31 PM ESTSexual OrientationStraight 07/30/2022 9:31 PM EST Last Filed Vital Signs Vital SignReadingTime TakenCommentsBlood Uyrjzofy864/7508/17/2025 2:16 PM EST done at office dzmnsClwfg5403/08/2025 2:15 PM AGZNzkufvmshhz72.8 ??C (98.2 ??F) 06/23/2025 7:07 AM EDTRespiratory Dvgn822710/18/2024 2:15 PM ESTOxygen Saturation 99%06/23/2025 5:39 AM EDTInhaled Oxygen Concentration--Upvatr411.7 kg (235 lb 3.2 oz)07/09/2025 10:52 AM FCGJlnkxo135.9 cm (5' 0.98 )07/09/2025 10:52 AM EDT Body Mass Index44.4607/09/2025 10:52 AM EDT Plan of Treatment DateTypeDepartmentCare Team (Latest Contact Info)Clngrtrmtwv91/29/2025 2:30 PM ESTTelemedicine Maternal- Medicine at [facility] [address] [place] [address] Lara Looney, AMARILYS [address] [address] 09/08/2025 2:15 PM ESTAppointment [facility] - [facility]ound [address] [place] [address] 09/17/2025 10:15 AM ESTOffice Visit [facility] Pulmonary/Sleep Medicine [address] [place] [address] Jalyn Vidal, DO [address] [address] 09/22/2025 3:15 PM ESTAppointment [facility] - Ultrasound [address] [place] [address] Health MaintenanceDue DateLast DoneCommentsDTaP,Tdap and Td Vaccines (7 - Td or Tdap), 01/14/1999, 10/23/1996, Additional history exists Depression Lfldsptqe43/dult BMI Follow Up Plan05/01/2025 05/01/2024Influenza Ioykewp62, 07/11/2011RSV ( or age 60+ yrs) (1 - Risk 1-dose series)08/21/2025dult BMI Screening Tobacco Cqfqfdndq45Pap Smear06/10/2028 06/10/2025 Goals GoalPatient Goal TypeAssociated ProblemsRecent ProgressPatient-Stated?Author safe discharge to home Kate Malave RN Note: Evaluation of progress towards goal: safe transition from hospital to home with family support. Medical Devices Not on file Procedures Procedure NamePriorityDate/TimeAssociated DiagnosisCommentsUS [facility] LMTD OB, 1 OR MORE YSUBVAabrhmn37/15/2025 3:21 PM EST Obesity in , antepartum Intrauterine growth restriction affecting care of mother, unspecified trimester, not applicable or unspecified fetus NONSTRESS QQZLEmusidu10/12/2025 9:29 AM EST Pre-diabetes History of gestational diabetes in prior , currently History of Arlene-en-Y gastric bypass Chronic hypertension affecting Malnutrition following gastrointestinal surgery [facility] OB FOLLOW-UP, 1 RGHDSQswkuyr13/08/2025 12:46 PM EST Pre-diabetes History of gestational diabetes in prior , currently History of Arlene-en-Y gastric bypass Chronic hypertension affecting History of pre-eclampsia in prior , currently in second trimester [facility] OB FOLLOW-UP, 1 NNJTOPwwcjle58/30/2025 11:17 AM EDT 20 weeks gestation of Chronic hypertension affecting History of pre-eclampsia in prior , currently in second trimester History of gestational diabetes in prior , currently in second trimester History of prediabetes Bariatric surgery status complicating , second trimester Severe obesity due to excess calories affecting , antepartum ([facility]) History of maternal pulmonary embolus Obstructive sleep apnea History of gestational diabetes in prior , currently Depression affecting Anxiety disorder affecting , antepartum CT CTA YXGQUDLZF79/14/2025 8:40 AM EDT JIIUTZQBLIWFJH00/14/2025 5:20 AM EDT RGNEPOEQSP29/14/2025 4:21 AM EDT COMPREHENSIVE METABOLIC FGXUVHVPQ44/14/2025 4:21 AM EDT CBC WITH AUTO DKOUEEYEHRBAEMQS94/14/2025 4:21 AM EDT US ABDOMEN JBIONHBM02/08/2025 11:31 AM EDT ER EXTRA XAFIPHXRO86/08/2025 11:24 AM EDT POCT NURSING URINE MACROSCOPIC AVHvapxdq99/08/2025 11:09 AM EDT EXTRA TUBES BLUE RWYJwsbtvm78/08/2025 11:04 AM EDT EXTRA MGAMMPldmwgj41/08/2025 11:04 AM EDT COMPREHENSIVE METABOLIC NMYPGJYLP50/08/2025 11:04 AM EDT JKFUXONTZG99/08/2025 11:04 AM EDT CBC WITH AUTO UPVQBERHWJNFGNCZ93/08/2025 11:04 AM EDT from Last 3 Months Results * US MFM LMTD OB, 1 OR MORE FETUS (08/24/2025 3:21 PM EST) Only the most recent of3 resultswithin the time period is included. Anatomical RegionLateralityModalityOB-GYNUltrasoundSpecimen (Source)Anatomical Location / LateralityCollection Method / VolumeCollection TimeReceived Time 08/24/2025 2:47 PM EST Narrative 08/24/2025 3:36 PM EST NAME: ??TARA PERKINS : 1995 SEX: F Accession Number: [id number] ORDERING PHYSICIAN: SANA ROWE REFERRING PHYSICIAN: GONZALEZ PASCAL Coding Procedures ? 58392: Ultrasound, uterus, real time with image documentation, limited one or more fetuses ? 89002: Doppler velocimetry, ; umbilical artery Indication IUGR-Poor growth, Bariatric surgery complicating , Obesity in , history of PE , History of gestational hypertension , History of prior with gestational diabetes , Supervision of high risk , Obesity in . History OB History ? 3. Para 2 ? [id number] Current Cell free DNA ?low risk analysis [...] MVP measures 5.3 cm. Recommendations Please see [facility] recommendations from prior clinical and/or ultrasound report documentation. The patient is scheduled in 2 week(s) for growth and Doppler. The patient is scheduled in 4 week(s) for Doppler and MVP. Subsequent follow up or other follow up as clinically determined by primary OB provider unless otherwise specified by [facility]. Results forwarded to ordering provider so they can follow up with the patient as necessary. Procedure Note Sana Rowe MD - 08/24/2025 NAME: TARA PERKINS : 1995 SEX: F Accession Number: [id number] ORDERING PHYSICIAN: SANA ROWE REFERRING PHYSICIAN: GONZALEZ PASCAL Coding Procedures 68372: Ultrasound, uterus, real time with image documentation, limited one or more fetuses 80402: Doppler velocimetry, ; umbilical artery Indication IUGR-Poor growth, Bariatric surgery complicating , Obesityin , history of PE , History of gestational hypertension , History of prior with gestationaldiabetes , Supervision of high risk , Obesity in . History OB History 3. Para 2 [id number] Current Cell free DNA low risk analysis Maternal Assessment Physical Exam Height 152 cm, 5 ft. Weight 107 kg, 235 lb. Initial ejqvhr965 kg, 239 lb. BMI 45.90 kg/m??. Initial [...] MVP measures 5.3 cm. Recommendations Please see [facility] recommendations from prior clinical and/or ultrasoundreport documentation. [...] thepatient as necessary. Authorizing ProviderResult TypeResult Marco Rowe MDIMTrini ORDERABLESFinal Result * nonstress test - Maternal [...] Charles RN ?08/17/2025 ? Authorizing ProviderResult TypeResult Marco Mixondskaya MDOB GYNE ORDERABLESFinal ResultPerforming OrganizationAddressCity/State/ZIP CodePhone Number [...] 8:49 AM Authorizing ProviderResult TypeResult StatusCoribridget Dunlap [facility] ORDERABLES Final Result * Urinalysis (06/23/2025 5:20 AM EDT)ComponentValueRef RangeTest MethodAnalysis TimePerformed AtPathologist JeabiatwiLQZUOAhclhcJrrwwc32/14/2025 6:36 [address] ED[address] [facility]ITALTURBIDITYClearClear06/23/2025 6:36 AM EDT [facility] LIMAPECIFIC GRAVITY1.0201.003 - 1.035 06/23/2025 6:36 AM EDWESTERN RESERVE HOSPITALNITRITENegative Tbgwopck09/14/2025 6:36 AM EDWESTERN RESERVE HOSPITALPH,URINE6.0 5.0 - 8.510 6:36 AM EDWESTERN RESERVE HOSPITALLEUKOCYTE JBMVNWCTGcosauzwXxkbtlvs99/14/2025 6:36 AM EDTPHIGHLAND DISTRICT HOSPITALPROTEINNegativeNegative06/23/2025 6:36 AM EDWESTERN RESERVE HOSPITALKETONES (URINE)QnfsihchGfszmpvi98/14/2025 6:[address] [facility] HOSPITALUROBILINOGEN1.0 eu/dL0.2 eu/dL, 1.0 eu/dL 06/23/2025 6:36 AM EDTPHIGHLAND DISTRICT HOSPITALBILIRUBIN (URINE) GpwfcucwSclnlpnx64/14/2025 6:36 AM EDWESTERN [facility]ERVE [facility]OSPITAL BLOOD/PAWQdxsxsckAjruzadm19/14/2025 6:36 AM [facility]OSPITALGLUCOSE (URINE)NegativeNegative, 250 mg/dL06/23/2025 6:36 AM EDT [facility] LIMApecimen (Source)Anatomical Location / LateralityCollection Method / VolumeCollection TimeReceived TimeUrineUrine specimen collection, clean catch / Uqndbsp7906/23/2025 5:20 AM EDT1 6:32 AM EDT Narrative Authorizing ProviderResult TypeResult StatusCoribridget UNGER ORDERABLES Final ResultPerforming OrganizationAddressCity/State/ZIP CodePhone Number [facility] [address] [place] [address], * (ABNORMAL) CBC auto differential (06/23/2025 4:21 AM EDT) Only the most recent of2 resultswithin the time period is included. ComponentValueRef RangeTest MethodAnalysis TimePerformed AtPathologist Signature WBC9.74 - 11 x10E9/L1 4:49 AM [facility] HOSPITALRBC Count3.38(L)3.8 - 5.2 X10E12/L1 4:49 AM [facility]OSPITALHemoglobin10.6(L)11.7 - 15.5 g/dL06/23/2025 4:49 AM EDWESTERN RESERVE HOSPITALHematocrit29.9(L)35 - 47 %06/23/2025 4:49 AM [facility]OSPITALMCV8880 - 100 fL06/23/2025 4:49 AM [facility]OSPITALMCH31.327 - 34 pg06/23/2025 4:49 AM [facility]OSPITALMCHC35.332 - 36 g/dL06/23/2025 4:49 AM [facility] HOSPITALRDW13.011.5 - 15 %06/23/2025 4:49 AM EDWESTERN RESERVE HOSPITALPlatelet Qozjs184687 - 450 X10E9/L1 4:[address]OSPITALMPV7.87 - 12 fL06/23/2025 4:[address] [facility] HOSPITALNeutrophils %69.6%06/23/2025 4:[address] [facility] HOSPITALLymphocytes %24.9%06/23/2025 4:49 AM EDT [facility] HOSPITALMonocytes %4.0%06/23/2025 4:[address] [facility] HOSPITALEosinophils %1.1%06/23/2025 4:[address] [facility]OSPITALBasophils %0.4%06/23/2025 4:[address] [facility] HOSPITALNeutrophils Absolute (A)6.8(H)1.5 - 6.6 10*3/uL06/23/2025 4:49 AM EDWESTERN RESERVE HOSPITALLymphocytes Absolute2.41.0 - 3.5 10*3/uL06/23/2025 4:49 AM EDWESTERN RESERVE HOSPITALMonocytes Absolute0.40.0 - 0.9 10*3/uL06/23/2025 4:49 AM EDWESTERN RESERVE HOSPITALEosinophils Absolute0.10.0 - 0.4 10*3/uL06/23/2025 4:49 AM EDWESTERN RESERVE HOSPITALBasophils Absolute0.00.0 - 0.2 10*3/uL 06/23/2025 4:49 AM [facility] HOSPITALDifferential Type AUTOMATED PZUIFOMYESVA41/14/2025 4:49 AM [facility] Specimen (Source)Anatomical Location / LateralityCollection Method / Volume Collection TimeReceived TimeBloodVenous blood / UnknownVenipuncture / Unknown 06/23/2025 4:21 AM EDT1 4:44 AM EDT Narrative Authorizing ProviderResult TypeResult StatusJesse A Park DOLAB BLOOD ORDERABLES Final ResultPerforming OrganizationAddressCity/State/ZIP CodePhone Number [address] [address], * Lipase (06/23/2025 4:21 AM EDT) Only the most recent of2 resultswithin the time period is included. ComponentValueRef RangeTest MethodAnalysis TimePerformed AtPathologist Signature QHQURI8805 - 40 U/L1 5:02 AM [facility] Specimen (Source)Anatomical Location / LateralityCollection Method / Volume Collection TimeReceived TimeBloodVenous blood / UnknownVenipuncture / Unknown 06/23/2025 4:21 AM EDT1 4:44 AM EDT Narrative Authorizing ProviderResult TypeResult StatusJesse A Runnells DOLAB BLOOD ORDERABLES Final ResultPerforming OrganizationAddressCity/State/ZIP CodePhone Number [address] [place] [address], [place] * (ABNORMAL) Comprehensive metabolic panel (06/23/2025 4:21 AM EDT) Only the most recent of2 resultswithin the time period is included. ComponentValueRef RangeTest MethodAnalysis TimePerformed AtPathologist Signature HYZPAP164654 - 146 mmol/L1 5:05 AM [facility]OSPITALPOTASSIUM3.93.5 - 5.0 mmol/L1 5:05 AM [facility] HOSPITALCHLORIDE10898 - 109 mmol/L1 5:05 AM [facility] HOSPITALCARBON XMCHDLK67(L)22 - 32 mmol/L1 5:05 [address] ED[address] [facility] HOSPITALANION GAP85 - 15 mmol/L1 5:[address] [facility] HOSPITALBLOOD UREA LRFLQEEL14 - 23 mg/dL06/23/2025 5:05 AM [facility] HOSPITALCREATININE0.440.40 - 1.00 mg/dL 06/23/2025 5:05 AM [facility]OSPITALComment:METHOD TRACEABLE TO IDMS FQEHZQKWMDLPUCA7129 - 99 mg/dL06/23/2025 5:05 AM [facility] HOSPITALCALCIUM8.78.5 - 10.5 mg/dL06/23/2025 5:[address] ED[address] [facility] HOSPITALTOTAL PROTEIN6.36.0 - 8.0 g/dL06/23/2025 5:05 AM [facility] HOSPITALALBUMIN3.1(L)3.2 - 5.3 g/dL06/23/2025 5:05 AM [facility]OSPITALALKALINE FITZRUDAPZY2476 - 130 U/L 06/23/2025 5:05 AM [facility]OS[facility]ITALAST11<=41 U/L1 5:05 AM [facility]ALT16<=31 U/L1 5:05 AM [facility] HOSPITALBILIRUBIN,TOTAL0.50.3 - 1.2 mg/dL 06/23/2025 5:05 AM [facility] HOSPITALEGFR Non-Race Dependent >90>=60 ml/min/1.73sq.m1 5:05 AM [facility] Comment: eGFR not reported due to non-numeric [...] ORDERABLES Final ResultPerforming OrganizationAddressCity/State/ZIP CodePhone Number [facility] [address] [place] [address], [place] * Ultrasound abdomen limited (06/17/2025 11:31 [...] AtPathologist SignatureExtra TubeAuto Resulted 06/17/2025 1:01 PM EDLOUIS STOKES CLEVELAND VA MEDICAL CENTERpecimen (Source) Anatomical Location / LateralityCollection Method / VolumeCollection Time Received TimeUrineUrine / UnknownCollection / Hubzgbp2406/17/2025 11:24 AM EDT 06/17/2025 11:24 AM EDT Narrative Authorizing ProviderResult TypeResult StatusJaswinder UNGER ORDERABLES Final ResultPerforming OrganizationAddressCity/State/ZIP CodePhone Number [facility] [address] [place] [address], * POCT Nursing Urine Macroscopic UA (06/17/2025 11:09 AM EDT)ComponentValueRef RangeTest MethodAnalysis TimePerformed AtPathologist SignatureBARRE CITY [facility] Urine Specific Gravity1.0251.010, 1.015, 1.020, 1.9536006/17/2025 11:10 AM EDT [facility] Urine Leukocyte EsteraseNegative Ijlpxlzd21/08/2025 11:[address] [facility] Urine KruakqqEdbfcnniFyxbjgmp83/08/2025 11:[address] [facility] Urine pH6.55.0, 6.0, 6.5, 7.0, 7.5, 8.0, 8.5, 5. 11:[address] [facility] Urine ProteinNegativeNegative 06/17/2025 11:10 AM [facility] Urine Glucose NwujowisLtmuvrva46/08/2025 11:10 AM [facility] Urine OmnmulqOslalqyjUselmpra50/08/2025 11:[address] [facility] Urine Urobilinogen2.0 E.U./dL06/17/2025 11:10 AM [facility] Urine RgbvvwpcvWkbjfstmHahqctxi36/08/2025 11:10 AM [facility] Urine Blood/HGBNegativeNegative 06/17/2025 11:10 AM [facility] (Source) Anatomical Location / LateralityCollection Method / VolumeCollection Time Received HmotNqusi75/08/2025 11:09 AM EDT1 11:10 AM EDT Narrative Authorizing ProviderResult TypeResult StatusJaswinder Melvin MDPOINT OF CARE TEST ORDERABLESFinal ResultPerforming OrganizationAddressCity/State/ZIP CodePhone Number [address] [address], * Light Blue Top (06/17/2025 11:04 AM EDT)ComponentValueRef RangeTest Method Analysis TimePerformed AtPathologist SignatureExtra TubeAuto Resulted 06/17/2025 1:01 PM EDPro[facility] (Source) Anatomical Location / LateralityCollection Method / VolumeCollection Time Received TimeBloodVenous blood / Qjeccdk3606/17/2025 11:04 AM EDT1 11:12 AM EDT Narrative Authorizing ProviderResult TypeResult StatusJaswinder Melvin MDLAB BLOOD ORDERABLES Final ResultPerforming OrganizationAddressCity/State/ZIP CodePhone Number [address] [address], from Last 3 Months Insurance Advance Directives * Full Code (Latest Code Status on File) Date ActivatedDate EjiaihsjposRrwgjrrd15/14/2025 9:38 AM06/23/2025 11:46 AM * Full Code Date ActivatedDate InactivatedComments04/23/2024 11:06 AM04/24/2024 4:47 PM * Full Code Date ActivatedDate AnnualxfocaOngjslmi54/20/2022 11:42 PM07/31/2022 2:48 PM * Full Code Date ActivatedDate InactivatedComments11/24/2018 10:44 PM11/27/2018 4:48 PM Care Teams Team MemberRelationshipSpecialtyStart DateEnd Date Riddhi Plata MD PCP - Generalmi Medicine12/09/23
--- OUTSIDE RECORDS SUMMARY | 2025-09-01 11:06 | XMS_ITS | Encounter Summary ---
Author Organization [facility] tem Address [id number] [address] [place] [address] Care Team Providers Care Manager Ship Name Role Phone Riddhi Plata MD Primary Care Provider [phone] Encounter Details DateTypeDepartmentCare Team (Latest Contact Info)Ylcrhnfpvom58/16/2025Telephone Maternal- Medicine at [facility] [address] [facility] [place] [phone] Shayla Alex RN Social History Tobacco UseTypesPacks/DayYears UsedDateSmoking Tobacco: NeverSmokeless Tobacco: NeverAlcohol UseStandard Drinks/WeekCommentsNot Currently0 (1 standard drink = 0.6 oz pure alcohol)[facility] UtilitiesAnswerDate RecordedIn the past 12 months has the [employer], gas, oil, or water [employer] threatened to shut off services in your [...] care, and heating?Not hard at all06/23/2025PHQ-2AnswerDate RecordedTotal Rzpha566 PRAPARE - TransportationAnswerDate RecordedIn the past 12 [...] of a household?No06/23/2025hildcareAnswerDate RecordedDo problems getting child protective services social worker make it difficult for you to work or study?No06/23/2025 EmploymentAnswerDate KuuofjxwDerobbggawImntbhc03/06/2019Hunger ScreeningAnswer Date RecordedWithin the past 12 months we worried whether our food would run out before we got money to buy more.Never True06/23/2025Within the past 12 months the food we bought just didn't last and we didn't have money to get more.Never True06/23/2025Purpose - LifeAnswerDate RecordedPurpose and direction in life Lmxdvdq78/27/2021Estimated Date of AvhixcgwYcnizipjCdt83/06/2026Based on last menstrual period of 01/09/2025Sex and Gender InformationValueDate RecordedSex Assigned at RdbtwVztmsq17/20/2022 9:31 PM ESTLegal PuoFitsdx65/06/2015 11:49 AM EDTGender KyuhrvuhSoczkr58/20/2022 9:31 PM ESTSexual OrientationStraight 07/30/2022 9:31 PM ESTdocumented as of this encounter Miscellaneous Notes * Telephone Encounter - Shayla Alex RN - 08/25/2025 6:03 PM EST Called pt to discuss her blood sugars and that Lara Looney reviewed her dexcom and she feels thatthe pt needs to come in for a med start appt and to discuss her blood sugars with a provider. Pt agreed and number given for her to call for appt tomorrow to get on the sched. documented in this encounter Plan of Treatment DateTypeDepartmentCare Team (Latest Contact Info)Jujdaosetdu84/29/2025 2:30 PM ESTTelemedicine Maternal- Medicine at [facility] [address] [place] [address] Lara Looney PA-C [address] [address] 09/08/2025 2:15 PM ESTAppointment [facility] [address] [place] [phone] 09/17/2025 10:15 AM ESTOffice Visit [facility] [address] [facility] [place] [phone] Jalyn Vidal, DO [address] [address] 09/22/2025 3:15 PM ESTAppointment [facility] [address] [place] [phone] documented as of this encounter Goals GoalPatient [...]
--- OUTSIDE RECORDS SUMMARY | 2025-09-01 11:07 | XMS_ITS | Encounter Summary ---
Author Organization [facility] Address [address] [facility] [place] [address] Care Team Providers Care Clinical Psychologist Private Practice Name Role Phone Jessica Mariscal MD Primary Care Provider [phone] Encounter Details DateTypeDepartmentCare Team (Latest Contact Info)Hixtpokdsxg52/16/2025linisync Result Encounter [facility] External Department Unsolicited Gonzalez Morales DO [address] [place] [address] Social History Tobacco UseTypesPacks/DayYears UsedDateSmoking Tobacco: NeverSmokeless Tobacco: NeverAlcohol UseStandard Drinks/WeekCommentsNever0 (1 standard drink = 0.6 oz pure alcohol)Caffeine intake: 1-2 cups per day coffeeEstimated Date of WukrhzzoKohnxaedQbq47/06/2026ased on last menstrual period of 01/09/2025Sex and Gender InformationValueDate RecordedSex Assigned at BirthNot on fileLegal Sex Vgirtg3311/22/2022 9:44 PM EDTGender IdentityNot on fileSexual OrientationNot on filedocumented as of this encounter Plan of Treatment DateTypeDepartmentCare Team (Latest Contact Info)Gixokehplkw17/31/2025 9:40 AM ESTRoutine [facility] Nichole TAYLOR [address] [place] [address] Nena Spicer, RONALD [address] [place] [address] documented as of this encounter Goals GoalPatient Goal TypeAssociated ProblemsRecent ProgressPatient-Stated?Author Help patient manage antidepressant medication Care PlanPatient on antidepressant monitoring Jessica Mcdonald MD Baseline PHQ-9 Care PlanBaseline PHQ-9Jessica Lerma MDdocumented as of this encounter Procedures Procedure NamePriorityDate/TimeAssociated DiagnosisCommentsUS OB BPP W NON-SRKBQM3008/25/2025 12:15 PM EST documented in this encounter Results * US OB BPP W NON-STRESS (08/25/2025 12:15 PM EST)Anatomical Region LateralityModalityOtherSpecimen (Source)Anatomical Location / Laterality Collection Method / VolumeCollection TimeReceived Time08/25/2025 12:15 PM EST Narrative 08/25/2025 12:18 PM EST [facility] ?[address] ? [place] [address] ? Ultrasound Report ? Signed ? Patient: SHIRA JETT L ? MR#: [id number] ?? : 1995 ?Acct:[id number] ?? Age/Sex: 30 / F ?ADM Date: 08/25/25 ?? Loc: US ? Attending Dr: Gonzalez Moarles D.O. ? Ordering Physician: Gonzalez Morales D.O. ?? Date of Service: 08/25/25 ?? Procedure(s): US OB BPP w non-stress ?? Accession Number(s): [id number] ? cc: JESSICA MARISCAL ; Gonzalez Morales D.O. ? [facility] ? [address] ? [place] [address] ? Patient Name: ?? SHIRA JETT ? MRN: [id number] ? date: 1995 ?Sex: F ?? Assigned Patient Location: [facility] ?? Current Patient Location: ? Accession/Order Number: [id number] ?? Exam Date: 08/25/2025 ??11:00 ?Report Date: 08/25/2025 ??12:15 ? At the request of: ?? GONZALEZ ??CARMEN ??DO ? Procedure: ??US OB BPP w non-stress ? BIOPHYSICAL PROFILE: ? CLINICAL INFORMATION: Primary hypertension. Preeclampsia in period ? COMPARISON: None ? There is a single live intrauterine gestation in breech presentation. ??The ?? reported gestational age is 32 weeks 4 days. ??The heart rate measures ?? 144 beats per minute. ? FINDINGS: ? TONE: 1 or more episodes of activity extension and flexion of ?? extremity or opening and closing of the hand ?[Y] ? 2/2 ?? GROSS BODY MOVEMENTS: 3 or more discrete body or limb movements ?[Y] ? 2/2 ?? BREATHING MOVEMENTS: 1 or more episodes of breathing lasting at ?? least 30 seconds ? [Y] ? 2/2 ?? MELY: A single deepest vertical pocket of amniotic fluid greater than 2 cm ? [Y] ? 2/2 ?MELY: 12.9 cm ? Total score: ? 8/8 ? US/US OB BPP w non-stress ?? IMPRESSION: ? NORMAL BIOPHYSICAL PROFILE . ? Impression dictated by: Lakshmi Harmon M.D. ??08/25/2025 12:15 PM ? Dictation Location: RADIO-PC-30 ? Electronically authenticated by: [id number] ??Y ?? Date: 08/25/2025 ??12:15 ? Dictated By: ?Lakshmi Harmon M.D. ? Signed By: ?12/16/25 1218 ? DD/ 1215 ? TD/TT: ? Internet Site Designer: Procedure Note Radiology, Radiologist, MD - 08/25/2025 [place] [address] Ultrasound Report Signed Patient: SHIRA JETT LMR#: [id number] : 1995Acct:[id number] Age/Sex: 30 / FADM Date: 08/25/25 Loc: US Attending Dr: Gonzalez Morales D.O. Ordering Physician: Gonzalez Morales D.O. Date of Service: 08/25/25 Procedure(s): US OB BPP w non-stress Accession Number(s): [id number] cc: JESSICA MARISCAL ; Gonzalez Morales D.O. [facility] [place] [id number] Patient Name: SHIRA JETT MRN: [id number] date: 1995 Sex: F Assigned Patient [facility]: [facility] Current Patient Location: Accession/Order Number: [id number] Exam Date: 08/25/2025 11:00 Report Date: 08/25/2025 12:15 At the request of: GONZALEZ MORALES DO Procedure: US OB BPP w non-stress BIOPHYSICAL PROFILE: CLINICAL INFORMATION: Primary hypertension. Preeclampsia in postpartumperiod COMPARISON: None There is a single live intrauterine gestation in breech presentation. The reported gestational age is 32 weeks 4 days. The heart ratemeasures 144 beats per minute. FINDINGS: TONE: 1 or more episodes of activity extension and flexion of extremity or opening and closing of the hand [Y] 2/2 GROSS BODY MOVEMENTS: 3 or more discrete body or limb movements [Y] 2/2 BREATHING MOVEMENTS: 1 or more episodes of breathing lastingat least 30 seconds [Y] 2/2 MELY: A single deepest vertical pocket of amniotic fluid greater than 2 cm [Y] 2/2 MELY: 12.9 cm Total score: 8/8 US/US OB BPP w non-stress IMPRESSION: NORMAL BIOPHYSICAL PROFILE . Impression dictated by: Lakshmi Harmon M.D. 08/25/2025 12:15 PM Dictation Location: [employer] Electronically authenticated by: [id number] Y Date: 2:15 Dictated By: Lakshmi Harmon M.D. Signed By:08/25/258 DD/ 14 TD/TT: Internet Site Designer: Authorizing ProviderResult TypeResult StatusCorey Carmen DOCLINISYNC IMAGINGFinal Result documented in this encounter Visit Diagnoses Not on filedocumented in this encounter Additional Health Concerns Active ProblemsNoted DateDiagnosed DatePatient on antidepressant monitoring plan 4Baseline PHQ-904documented as of this encounter Care Teams Team MemberRelationshipSpecialtyStart DateEnd Date Jessica Mariscal MD [address] [place] [address] PCP - GeneralFamily Medicine01/16/23documented as of this encounter
--- OUTSIDE RECORDS SUMMARY | 2025-09-01 11:07 | XMS_ITS | Encounter Summary ---
Author Organization [facility] Address [address] [facility] [place] [address] Care Team Providers Care Director [employer] Name Role Phone Riddhi Plata MD Primary Care Provider [phone] Encounter Details DateTypeDepartmentCare Team (Latest Contact Info)Lhrzxgrhwhc34/17/2025amboo flowsheet CHEVY TAYLOR [address] [place] [address] Winter English PA [address] [facility] [address] [place], [facility] Social History Tobacco UseTypesPacks/DayYears UsedDateSmoking Tobacco: NeverSmokeless Tobacco: NeverAlcohol UseStandard Drinks/WeekCommentsNever0 (1 standard drink = 0.6 oz pure alcohol)Caffeine intake: 1-2 cups per day coffeeEstimated Date of UdfqyvyrXfygxhplNoa87/06/2026Based on last menstrual period of 01/09/2025Sex and Gender InformationValueDate RecordedSex Assigned at BirthNot on fileLegal Sex Kaaqvm0611/22/2022 9:44 PM EDTGender IdentityNot on fileSexual OrientationNot on filedocumented as of this encounter Plan of Treatment DateTypeDepartmentCare Team (Latest Contact Info)Xxerpvzyvht62/31/2025 9:40 AM ESTRoutine NOMEl TAYLOR [address] [place] [address] Nena Spicer, RONALD [address] [facility] [place] [address] documented as of this encounter Goals [...] DateEnd Date Riddhi Plata MD [address] [place] [address] PCP - GeneralFamily Medicine01/16/23documented as of this encounter
--- OUTSIDE RECORDS SUMMARY | 2025-09-01 11:07 | XMS_ITS | Clinical Summary ---
Author Organization [facility] Healthcare Address [address] [place] [address] Care Team Providers Care Sash Sticker Name Role Phone Riddhi Plata MD Primary Care Provider [phone] Allergies Active AllergyReactionsCriticalityNoted DateCommentsSumatriptanAnaphylaxis, HkgjwvpLubj85/21/2019 IMITREX FOR MIGRAINES Other Reaction(s): Other (See [...] 28-0.8 MG tablet Indications:, unspecified gestational age ([facility]),Encounter for supervision of normal first in first trimester ([facility])Take 1 tablet by mouth Daily 30 tablet 60506Active busPIRone (Buspar) 15 MG tablet Indications:AnxietyTAKE 1 TABLET BY MOUTH 2 TIMES A DAY (MORNING AND BEFORE BEDTIME) 180 tablet 5Active labetalol (Normodyne) 200 MG tablet Indications:Pre-existing essential hypertension during , antepartum ([facility]),Primary hypertension,History of pulmonary embolismTAKE 1 TABLET [...] Discontinued(Reorder) Active Problems ProblemNoted DateDiagnosed DateH/O gastric vvtegg1604/20/20251227Dyhcnjo02/07/2023 Disorder of endocrine hirnhq5005/17/2023Frequent /07/2023Irregular ysdztkr4505/17/2023Menorrhagia with regular cycle05/17/2023lass 3 severe obesity due to excess calories with serious comorbidity and body mass index (BMI) of50.0 to 59.9 in adult05/17/2023Nausea and mutxbhfw98/07/2023cute pulmonary embolism 05/17/2023Single subsegmental pulmonary embolism without acute cor pulmonale 05/17/2023Thyroid mvwwsr7005/17/2023Urinary tract infection without hematuria 05/17/2023OSA on CPAP02/22/2023Morbid obesity with body mass index of 60.0-69.9 in adult01/26/2023olycystic ovarian oawitnn6901/26/2023rimary hypertension 01/26/2023neumonia due to infectious lwasoxgl87/20/2022Family history of yssiuyhcah84/08/2022History of pulmonary wpydlnts54/08/2022djustment disorder with oyjqrml0211/30/2021History of diet controlled gestational diabetes mellitus (GDM)11/30/2021Family history of diabetes during /21/2022reeclampsia in period ([facility])11/26/2021 Overview (05/17/2023): 11/29/21: Discharged home with Labetalol 600 QID and Procardia 90 XL qd. Pt has appt with Dr. Morales in [place] 11/30/21 for her PP appt. Pt has BP cuff at home already and would like to f/u with [facility] [employer] 12/09/21: Decreased to Labetalol 600 TID 12/26/21: Decreased to Procardia 90 XL qd. Iron deficiency qsaaqr7112/29/2019Gastroesophageal reflux ectfazq7512/15/2019 Seasonal allergic rhinitis due to fxpxcf7512/15/20199249Rdvgtxq27/28/2019Anemia 06/26/20199830Ipmtyhmyrx29/04/2019 Overview (05/17/2023): Started on Celexa Gestational diabetes mellitus (GDM) ([facility])12/09/20180537Lbajez88/01/2019 Estimated Date of AktlqkrnUjsjshyzHtd37/06/2026Based on last menstrual period of 01/09/2025 Encounters DateTypeDepartmentCare VmchHawmtnxqtyb83/17/2025 11:20 AM ESTRoutine [address] [address] [place] [address] Winter English PA Third trimester ([facility]); 32 weeks gestation of ([facility]); History of diet controlled gestational diabetes mellitus (GDM); H/O gastric bypass; Preeclampsia in period ([facility]); History of pulmonary embolism; Gestational diabetes mellitus (GDM) in third trimester, gestational diabetes method of control unspecified ([facility])5Bamboo flowsheet [facility] [address] [address] [place] [address] Winter English PA 5Clinisync Result Encounter NOMS External Department Unsolicited Gonzalez Morales, DO 5Abstract [facility] [address] [place] [address] Gonzalez Morales, DO 08/12/2025Telephone [facility] [place] [facility] [address] [place] [address] [place], [place] 08/11/2025 8:40 AM ESTRoutine [facility] [address] [place] [address] Gonzalez Morales, DO 30 weeks gestation of ([facility]); Third trimester ([facility]); History of diet controlled gestational diabetes mellitus (GDM); Preeclampsia in period ([facility]); History of pulmonary embolism; Primary cvmbgygjswcu28/02/2025amboo flowsheet [facility] [address] [place] [address] Gonzalez Morales, DO 08/10/2025Telephone [facility] [address] [place] [address] [place] 07/30/2025 9:10 AM ESTRoutine [facility] [address] [place] [address] Gonzalez Morales, DO 28 weeks gestation of ([facility]); Third trimester ([facility]); Pruritus; History of diet controlled gestational diabetes mellitus (GDM); Preeclampsia in period ([facility]); History of pulmonary embolism; Primary hypertension; History of kaabih775Bamboo flowsheet [facility] [address] [place] [address] Gonzalez Morales, DO 07/10/2025bstract [facility] [address] [place] [address] Gonzalez Morales, DO 07/10/2025bstract [facility] [address] [place] [address] Gonzalez Morales, DO 07/08/2025 8:30 AM EDTRoutine [facility] [place] [facility] [address] [place] [address] Winter English PA Second trimester ([facility]); 25 weeks gestation of ([facility]); Yjkttceh87/29/2025linisync Result Encounter NOMS External Department Unsolicited Winter English PA 07/08/2025amboo flowsheet [facility] [address] [place] [address] Winter English PA 5Clinisync Result Encounter NOMS External Department Unsolicited Gonzalez Morales, DO 07/01/2025linisync Result Encounter NOMS External Department Unsolicited Provider, Generic External Data 06/27/2025Refill [facility] [address] [place] [address] Gonzalez Morales, DO Pre-existing essential hypertension during , antepartum ([facility]); Primary hypertension; History of pulmonary ddkskeyi33/15/2025 1:40 PM EDTRoutine [facility] [address] [place] [address] Winter English PA Gallstones and inflammation of gallbladder without obstruction (Primary Dx); Second trimester ([facility]); 23 weeks gestation of ([facility]); History of diet controlled gestational diabetes mellitus (GDM); Preeclampsia in period ([facility]); History of pulmonary embolism; Primary hypertension; Diabetes mellitus siacwhqeq65/14/2025Telephone [facility] [place] [facility] [address] [place] [address] Gonzalez Morales DO 06/18/2025Orders Only [facility] [address] [facility] [place] [address] Mihaela LeslyeWANG 06/10/2025 8:50 [place] [address] Nena Spicer, RONALD 21 weeks gestation of ([facility]); Well woman exam; Second trimester ([facility]); Screen for STD (sexually transmitted disease); Well woman exam with routine gynecological exam; Diabetes mellitus screening; Iron deficiency anemia, unspecified iron deficiency anemia type06/10/2025 Clinisync Result Encounter NOMS External Department Unsolicited Nena Spicer, RONALD 5Bamboo flowsheet [facility] [place] [address] [address] [facility] [place] [address] Nena Spicer, RONALD 5Abstract [facility] [place] [facility] [address] [facility] [place] [phone] Gonzalez Morales, from Last 3 Months Immunizations ImmunizationAdministration DatesNext DueDTaP, Ntuiptvogka61/07/1999,10/23/1996, 01/17/1996,09/28/1995,03/28/1995HPV, Almtocpcnwpw87/29/2009,02/05/2009, 12/01/2008Hep A, ped/adol, 2 dose02/08/2012,02/05/2009,12/01/2008Hep B, Adolescent or Gwezihpcd09/09/1996,09/28/1995,03/28/1995HiB, unspecified 10/23/1996,01/17/1996,09/28/1995,03/28/1995Influenza, injectable, quadrivalent, preservative free08/11/2019Influenza, seasonal, jjggurixci50/01/2011MMR 01/14/1999,03/28/1995Meningococcal FJM5D4012/01/2008Polio, Nrqlofnlqod28/07/1999, 01/17/1996,09/28/1995,03/28/1995Tdap12/01/2008 Family History Medical HistoryRelationNameCommentsDiabetesFatherHypertensionFatherMental illnessFatherCancerMaternal GrandmotherHypertensionMotherDiabetesPaternal GrandfatherCancerPaternal QhwrqyydeypQyjkmcknNjneIpolbuPzssextiWphjvmj8Fwhvrmkh8 FatherAliveMaternal GrandmotherMotherAlivePaternal GrandfatherPaternal GisurveocwwUoffpq5Bme0 Social History Tobacco UseTypesPacks/DayYears UsedDateSmoking Tobacco: NeverSmokeless Tobacco: Never Tobacco Cessation:Counseling Given: Not Answered Alcohol UseStandard Drinks/WeekCommentsNever0 (1 standard drink = 0.6 oz pure alcohol)Caffeine intake: 1-2 cups per day coffeeEstimated Date of DuelrbymRjnqhwkoJjh59/06/2026Based on last menstrual period of 01/09/2025Sex and Gender InformationValueDate RecordedSex Assigned at BirthNot on fileLegal Sex Yocygl6911/22/2022 9:44 PM EDTGender IdentityNot on fileSexual OrientationNot on file Last Filed Vital Signs Vital SignReadingTime TakenCommentsBlood Qthuwcog470/7008/26/2025 11:35 AM EST Laizs484610/10/2024 3:32 PM ESTTemperature--Respiratory Cxpm360210/10/2024 3:32 PM ESTOxygen Mxjlcqtvux64%10/10/2024 3:32 PM ESTInhaled Oxygen Concentration-- Hykxjt476 kg (236 lb)08/26/2025 11:35 AM RAVEpwlzz427.9 cm (5' 1 )10/10/2024 3:32 PM ESTBody Mass Index44.59010/10/2024 3:32 PM EST Plan of Treatment DateTypeDepartmentCare Team (Latest Contact Info)Clasofcrqrp74/31/2025 9:40 AM ESTRoutine [facility] [place] [facility] [address] [place] [address] [place] [address] Nena Spicer, [employer] INST[employer]ER [address] [place] [address] Health MaintenanceDue DateLast DoneCommentsPneumococcal Vaccine: Pediatrics (0 to 5 Years) and At-Risk Patients (6 to 64 Years) (1 of 2 - PCV)2013 Influenza Vaccine (#1), 07/11/2011HPV/Hqgvbc7906/07/2028 06/07/2023, 12/11/2017Cervical Cancer Aydcekzah63/01/2028Pap Smear06/10/2028 06/10/2025 Goals GoalPatient Goal TypeAssociated ProblemsRecent ProgressPatient-Stated?Author Help patient manage antidepressant medication Care PlanPatient on antidepressant monitoring Riddhi Mcdonald MD Baseline PHQ-9 Care PlanBaseline PHQ-9Riddhi Lerma MD Procedures Procedure NamePriorityDate/TimeAssociated DiagnosisCommentsPOCT URINALYSIS ZCHQMXXNYfsjeee44/17/2025 11:37 AM EST Third trimester ([facility]) US OB BPP W NON-DWVCXO1808/25/2025 12:15 PM EST POCT URINALYSIS BBAKUEFIVbitmcx67/02/2025 9:11 AM EST 30 weeks gestation of ([facility]) Third trimester ([facility]) History of diet controlled gestational diabetes mellitus (GDM) Preeclampsia in period ([facility]) History of pulmonary embolism Primary hypertension POCT URINALYSIS VRTPKGTTVldjjwq38/20/2025 9:11 AM EST 28 weeks gestation of ([facility]) Third trimester ([facility]) [facility] BILE ACIDS FRACT YIKXsfseam30/29/2025 9:40 AM EDT ALL HEPATITIS C ETIwcxuaq40/29/2025 9:40 AM EDT ALL THYROID STIM GTHVUVFVaxyvyz30/29/2025 9:40 AM EDT HMHP LIVER FWUIFOdfvmqd99/29/2025 9:40 AM EDT ALL CBC WITH AUTO OSGGHoqswqr20/29/2025 9:40 AM EDT POCT URINALYSIS NEQFUDGVJulwtuq55/29/2025 8:48 AM EDT 25 weeks gestation of ([facility]) MCZICKAYIkncojt08/26/2025 8:00 PM EDT [facility] UA (CLEAN/CATCH) FILLER SHAKER/MICRO IF IND.Dyknplj2707/05/2025 7:50 PM EDT ALL CBC WITH AUTO PZLVLogrqdq94/22/2025 9:21 AM EDT MLR HEMOGLOBIN G2TQzzuhgy15/22/2025 9:21 AM EDT RECURRENT VAGINITIS (HTRX)Vsjsnij5206/10/2025 10:04 AM EDT POCT URINALYSIS YBYYGQLYShbqkwx73/01/2025 9:14 AM EDT 21 weeks gestation of ([facility]) IGP,APTIMA HPV,AGE VARMObrthxp17/01/2025 9:06 AM EDT PAP URAHJNtvnfia97/01/2025 12:00 AM EDTTHINPREP PAP AND HPV MRNA E6/E7 W/RFL HPV 16,18/25Wkcxero30/28/2023 4:13 PM EDT Well woman exam with routine gynecological exam from Last 3 Months or Most Recently Relevant to Health Maintenance Results * (ABNORMAL) POCT urinalysis dipstick manually resulted (08/26/2025 11:37 AM EST) Only the most recent of5 resultswithin the time period is included. ComponentValueRef RangeTest MethodAnalysis TimePerformed AtPathologist Signature Color, UAYellowClarity, UAClearGlucose, UANegativeNegative - 2000(110) ++++ mg/dLBilirubin, UANegativeNegative - 4(70) +++ mg/dLKetones, UANegativeNegative - 160(16) ++++ mg/dLSpec Grav, UA1.0201 - 1.03Blood, UANegativeNegative - 50 Raul/mcLpH, UA6.05 - 9Protein, UANegativeNegative - 2000(20) ++++ mg/dL Urobilinogen, UA1.00.2 - 12 mg/dLLeukocytes, UA1+Negative - 500+++ Ramo/mcL Nitrite, UANegativeNegative - PositiveSpecimen (Source)Anatomical Location / LateralityCollection Method / VolumeCollection TimeReceived YpfwThqfo21/17/2025 11:37 AM EST Narrative Authorizing ProviderResult TypeResult StatusFederal Medical Center, DevensOINT OF CARE TEST ENTER/EDIT ORDERABLESFinal Result * OB BPP W NON-STRESS (08/25/2025 12:15 PM EST)Anatomical Region LateralityModalityOtherSpecimen (Source)Anatomical Location / Laterality Collection Method / VolumeCollection TimeReceived Time08/25/2025 12:15 PM EST Narrative 08/25/2025 12:18 PM EST [facility] ?[address] ? [place] [address] ? Ultrasound Report ? Signed ? Patient: SHIRA JETT ? MR#: [id number] ?? : 1995 ?Acct:[id number] ?? Age/Sex: 30 / F ?ADM Date: 08/25/25 ?? Loc: US ? Attending Dr: Gonzalez Morales D.O. ? Ordering Physician: Gonzalez Morales D.O. ?? Date of Service: 08/25/25 ?? Procedure(s): US OB BPP w non-stress ?? Accession Number(s): [id number] ? cc: RIDDHI PLATA ; Gonzalez Morales D.O. ? [facility] ? [address] ? [place] [address] ? Patient Name: ?? SHIRA JETT ? MRN: [facility]:[id number] ? date: 1995 ?Sex: F ?? Assigned Patient Location: [facility] ?? Current Patient Location: ? Accession/Order Number: [id number] ?? Exam Date: 08/25/2025 ??11:00 ?Report Date: [...] Dictation Location: RADIO-PC-30 ? Electronically authenticated by: [id number] ??Y ?? Date: 08/25/2025 ??12:15 ? Dictated By: ?Lakshmi Harmon M.D. ? Signed By: ?08/25/25 1218 ? DD/ 1215 ? TD/TT: ? Brake Drum Molder: Procedure Note Radiology, Radiologist, - 08/25/2025 [place] [address] Ultrasound Report Signed Patient: SHIRA JETT LMR#: [id number] : 1995Acct:[id number] Age/Sex: 30 / FADM Date: 08/25/25 Loc: US Attending Dr: Gonzalez Morales D.O. Ordering Physician: Gonzalez Morales D.O. Date of Service: 08/25/25 Procedure(s): US OB BPP w non-stress Accession Number(s): [id number] cc: RIDDHI PLATA ; Gonzalez Morales D.O. The [address] [address] Patient Name: SHIRA JETT MRN: [facility]:[id number] date: 1995 Sex: F Assigned Patient Location: [facility] Current Patient Location: Accession/Order Number: [id number] Exam Date: 08/25/2025 11:00 Report Date: 08/25/2025 [...] Harmon M.D. 08/25/2025 12:15 PM Dictation Location: [place] [address] Electronically authenticated by: [id number] Y Date: 2:15 Dictated By: Lakshmi Harmon M.D. Signed By:08/25/258 DD/ 14 TD/TT: Brake Drum Molder: Authorizing ProviderResult TypeResult StatusCorey Carmen DOCLINISYNC IMAGINGFinal Result * (ABNORMAL) [facility] LIVER PANEL (07/08/2025 9:40 AM EDT)ComponentValueRef Range Test MethodAnalysis TimePerformed AtPathologist SignatureBILIRUBIN TOTAL0.20.2 - 1.0 mg/dLTBHBILIRUBIN DIRECT0.10.0 - 0.2 mg/dLTBHASPARTATE AMINO TRANSFERASE8(L)15 - 37 U/LTBHALANINE GORQVWYCMXRLXPVV4051 - 59 U/LTBHALKALINE BLCMZTYRMZW6607 - 116 U/LTBHTOTAL PROTEIN6.66.4 - 8.2 g/dLTBHALBUMIN LEVEL2.9 (L)3.4 - 5.0 g/dLTBHGLOBULIN3.7g/dLTBHALBUMIN GLOBULIN RATIO0.8TBHSpecimen (Source)Anatomical Location / LateralityCollection Method / VolumeCollection TimeReceived Time07/08/2025 9:40 AM EDT1 9:52 AM EDT Narrative [facility] - 07/08/2025 11:42 AM EDT Authorizing ProviderResult TypeResult StatusAmy Amador PACLINISYNCFinal Result Performing OrganizationAddressCity/State/ZIP CodePhone Number [facility] * [facility] BILE ACIDS FRACT BLD (07/08/2025 9:40 AM EDT)ComponentValueRef RangeTest MethodAnalysis TimePerformed AtPathologist SignatureBILE ACIDS9.20.0 - 10.0 umol/LTBHComment: Performed at: ?? - [facility] ??[id number] [employer] Mechanic: Alexis Carrizales MD, Phone: ??[phone] Specimen (Source)Anatomical Location / LateralityCollection Method / Volume Collection TimeReceived Time07/08/2025 9:40 AM EDT1 9:52 AM EDT N[facility]ative [facility] - 07/10/2025 7:08 AM EDT Authorizing ProviderResult TypeResult StatusAmy Amador PACLINISYNCFinal Result Performing OrganizationAddBryn Mawr Rehabilitation [facility] CodePhone Number [facility] * ALL THYROID STIM HORMONE (07/08/2025 9:40 AM EDT)ComponentValueRef RangeTest MethodAnalysis TimePerformed AtPathologist SignatureTHYROID STIMULATING HORMONE2.1800.358 - 3.740 uIU/mLTBHSpecimen (Source)Anatomical Location / LateralityCollection Method / VolumeCollection TimeReceived Time07/08/2025 9:40 AM EDT1 9:52 AM EDT Narrative [facility] - 07/08/2025 11:42 AM EDT Authorizing ProviderResult TypeResult StatusAmy Amador PACLINISYNCFinal Result Performing OrganizationAddressCity/State/ZIP CodePhone Number [facility] * ALL HEPATITIS C AB (07/08/2025 9:40 AM EDT)ComponentValueRef RangeTest Method Analysis TimePerformed AtPathologist SignatureHCV ANTIBODYNon ReactiveNon ReactiveTBHComment: HCV antibody alone does not differentiate between previously resolved infection and active infection. Equivocal and Reactive HCV antibody results should be followed up with an HCV RNA test to support the diagnosis of active HCV infection. Performed at: ?? - [facility] ??[id number] [employer] Mechanic: Sedrick Snider PhD, Phone: ??[phone] Specimen (Source)Anatomical Location / LateralityCollection Method / Volume Collection TimeReceived Time07/08/2025 9:40 AM EDT1 9:52 AM EDT Narrative [facility] - 07/09/2025 4:07 AM EDT Authorizing ProviderResult TypeResult StatusAmy Amador PACLINISYNCFinal Result Performing OrganizationAddressCity/State/ZIP CodePhone Number [facility] * (ABNORMAL) ALL CBC WITH AUTO DIFF [...] - 35.2 g/dLTBHTBH RDW13.211.0 - 15.0 %TBHTBH VCJ633504 - 450 10 3/uLTBHTBH MPV9.99.5 - 13.5 [...] 9:40 AM EDT1 9:52 AM EDT Narrative [facility] - 07/08/2025 10:06 AM EDT Authorizing ProviderResult TypeResult StatusAmy Huntington PACLINISYNCFinal Result Performing OrganizationAddressCity/State/ZIP CodePhone Number [facility] * AMNISURE (07/05/2025 8:00 PM EDT)ComponentValueRef RangeTest MethodAnalysis TimePerformed AtPathologist SignatureTBH AMNISURENEGATIVENEGATIVETBHSpecimen (Source)Anatomical Location / LateralityCollection Method / VolumeCollection TimeReceived Time07/05/2025 8:00 PM EDT1 8:21 PM EDT Narrative [facility] - 07/05/2025 8:27 PM EDT Authorizing ProviderResult TypeResult StatusValejyoti Blood CNMLAB BLOOD ORDERABLESFinal ResultPerforming OrganizationAddressCity/State/ZIP CodePhone Number [facility] * (ABNORMAL) [facility] UA (CLEAN/CATCH) FILLER SHAKER/MICRO IF IND. (07/05/2025 7:50 PM EDT) ComponentValueRef [...] Carmen DOCLINISYNCFinal Result Performing OrganizationAddressCity/State/ZIP CodePhone Number [facility] * MLR HEMOGLOBIN A1C (07/01/2025 9:21 AM EDT)ComponentValueRef RangeTest Method Analysis TimePerformed AtPathologist SignatureGLYCOHEMOGLOBIN A1C4.84.5 - 6.2 %TBHComment: ADA RECOMMENDED LIMIT 4.0 - 6.0 ADA THERAPEUTIC TARGET < 7.0 ACTION SUGGESTED > 7.0 ESTIMATED AVERAGE XKPWJCM25my/dLTBHSpecimen (Source)Anatomical Location / LateralityCollection Method / VolumeCollection TimeReceived Time07/01/2025 9:21 AM EDT1 9:38 AM EDT Narrative [facility] - 07/01/2025 9:54 AM EDT Authorizing ProviderResult TypeResult StatusGeneric External Data Provider CLINISYNCFinal ResultPerforming OrganizationAddressCity/State/ZIP CodePhone Number [facility] * RECURRENT VAGINITIS (HTRX) (06/10/2025 10:04 AM EDT)ComponentValueRef Range Test MethodAnalysis TimePerformed AtPathologist SignatureATOPOBIUM VAGINAE0 19.961 - 24.689 ppm06/11/2025 6:30 AM EDTHealthTrackRx at LabPortATOPOBIUM VAGINAENot Ypzrrvmc64.961 - 24.689 ppm06/11/2025 6:[address] [facility] HospitalBVAB 2,3 (BACTERIAL VAGINOSIS ASSOCIATED BACTERIA 2, 3); MOBILUNCUS SPP 019.961 - 24.689 ppm06/11/2025 6:[address] Anne HospitalBVAB 2,3 (BACTERIAL VAGINOSIS ASSOCIATED BACTERIA 2, 3); MOBILUNCUS SPPNot Detected 19.961 - 24.689 ppm06/11/2025 6:[address] Anne HospitalCANDIDA ALBICANS, PARAPSILOSIS, UDFMPSJBRG962.000 - 30.347 ppm06/11/2025 6:30 AM EDT [facility] HospitalCANDIDA ALBICANS, PARAPSILOSIS, TROPICALISNot Detected 23.000 - 30.347 ppm06/11/2025 6:[address] Anne HospitalCANDIDA FGZJQHFC682.000 - 31.618 ppm06/11/2025 6:[address] [facility] YUAN GLABRATANot Fkgvzxug65.000 - 31.618 ppm06/11/2025 6:30 AM EDT [facility] HospitalCANDIDA UDJXSB307.000 - 30.873 ppm06/11/2025 6:[address] Anne HospitalCANDIDA KRUSEINot Wobtxtps35.000 - 30.873 ppm 06/11/2025 6:[address] Anne HospitalCHLAMYDIA RXHXTQDKMAK825.000 - 31.586 ppm06/11/2025 6:[address] [facility] HospitalCHLAMYDIA TRACHOMATIS Not Owkzhowb45.000 - 31.586 ppm06/11/2025 6:[address] [facility] GARDNERELLA VTKOZOQQW942.961 - 24.689 ppm06/11/2025 6:[address] Anne HospitalGARDNERELLA VAGINALISNot Wjeykkgk71.961 - 24.689 ppm06/11/2025 6:[address] Anne HospitalMEGASPHAERA (TYPES 1, 2)019.961 - 24.689 ppm 06/11/2025 6:[address] Anne HospitalMEGASPHAERA (TYPES 1, 2)Not Hmiykprq68.961 - 24.689 ppm06/11/2025 6:[address] [facility] NEISSERIA FJVKQCVXIZL402.000 - 32.587 ppm06/11/2025 6:[address] Anne HospitalNEISSERIA GONORRHOEAENot Jrevzhme99.000 - 32.587 ppm06/11/2025 6:[address] Anne HospitalTRICHOMONAS QZWPBOMQU630.000 - 31.995 ppm 06/11/2025 6:[address] Anne HospitalTRICHOMONAS VAGINALISNot Mymsngfu50.000 - 31.995 ppm06/11/2025 6:[address] [facility] MYCOPLASMA UWUUZQRSQA898.961 - 24.689 ppm06/11/2025 6:[address] Anne HospitalMYCOPLASMA GENITALIUMNot Yfirjwqd39.961 - 24.689 ppm06/11/2025 6:[address] Anne HospitalSpecimen (Source)Anatomical Location / LateralityCollection Method / VolumeCollection TimeReceived TimeTissue 06/10/2025 10:04 AM EDT1 1:43 AM EDT Narrative Authorizing ProviderResult TypeResult StatusNena Spicer NPLAB BLOOD ORDERABLESFinal ResultPerforming OrganizationAddressCity/State/ZIP CodePhone Number [facility] [address] [address] * IGP,APTIMA HPV,AGE GDLN (06/10/2025 9:06 AM EDT)ComponentValueRef RangeTest MethodAnalysis TimePerformed AtPathologist SignatureAGE GDLN ACOG TESTINGNote. TBHComment: ?? TESTS ? RESULT ??FLAG ??UNITS ?REF RANGE ??LAB ?? Clinician Provided Cytology Information ?? Source.............[facility] ?? No. of containers..01 ThinPrep Vial Age Algo ACOG Luisa... ??29- ? 01 ?FLAG LEGEND: ?L-Low Normal,H-High Normal,LL-Alert Low,HH-Alert High <-Panic Low,>-Panic High,A-Abnormal,AA-Critical Abnormal Performed at: 01 =G ?[facility] ?? [address] [place] ??[id number] ?? Flores Rodgers MD, IGP, APTIMA HPV, RFX 16/18,45Note.TBHComment: ?? TESTS ? RESULT ??FLAG ??UNITS ?REF RANGE ??LAB DIAGNOSIS: ?02 ?? NEGATIVE FOR INTRAEPITHELIAL LESION OR MALIGNANCY. Specimen adequacy: ?02 ?? Satisfactory for evaluation. No endocervical component is identified. Performed by: ? 02 ?? Jorge Whittington, Manager Testing (ASCP) . ? 02 Note: ? Note [...] High,A-Abnormal,AA-Critical Abnormal Performed at: 02 WB ?[facility] ?? [address], [place] ??[id number] ?? Flores Rodgers MD, HPV APTIMANegativeNegativeTBHComment: This nucleic acid amplification test detects fourteen high- risk HPV types (16,18,31,33,35,39,45,51,52,56,58,59,66,68) without differentiation. Performed at: ??=G - [facility] [address], [place] ??[id number] Imitation Marble Mechanic: Flores Rodgers MD, Phone: ??[phone] Performed at: ?? - [facility] [address] ??[id number] [employer] Mar[employer] Mechanic: Flores Rodgers MD, Phone: ??[phone] Specimen (Source)Anatomical Location / LateralityCollection Method / Volume Collection TimeReceived Time06/10/2025 9:06 AM EDT1 8:57 PM EDT Narrative [facility] - 06/17/2025 3:09 PM EDT SPATULA-ALONE ENDOCERVIX Authorizing ProviderResult TypeResult StatusGeneric External Data ProviderLAB BLOOD ORDERABLESFinal ResultPerforming OrganizationAddressCity/State/ZIP Code Phone Number [facility] * Pap Smear (06/10/2025 12:00 AM EDT)Specimen (Source)Anatomical Location / LateralityCollection Method / VolumeCollection TimeReceived TimeSwabCervical swab / Unknown Narrative Authorizing ProviderResult TypeResult StatusFazio Nurse Noms Bcp ObLAB CYTOLOGY ORDERABLESFinal ResultPerforming OrganizationAddressCity/State/ZIP CodePhone Number EXTERNAL LAB * THINPREP PAP AND HPV MRNA E6/E7 W/RFL HPV 16,18/45 (06/07/2023 4:13 PM EDT) Narrative Authorizing ProviderResult TypeResult StatusAmy Amador PALAB BLOOD ORDERABLES Final ResultPerforming OrganizationAddressCity/State/ZIP CodePhone Number EXTERNAL LAB from Last 3 Months or Most Recently Relevant to Health Maintenance Additional Health Concerns Active ProblemsNoted DateDiagnosed DatePatient on antidepressant monitoring plan 02/01/2024aseline PHQ-9002/01/2024 Insurance Care Teams Team MemberRelationshipSpecialtyStart DateEnd Date Riddhi Plata MD [address] [place] [address] PCP - GeneralFamily Medicine01/16/23
[2025-09-01 11:43] VITALS: BP 111/51; PULSE 101
== END 2025-09-01 12:21 | disposition home or self-care (01) ==
LOC: US 11:02 → FBC 11:42
PROVIDERS: PCP Family Medicine; Visit Provider Obstetrics & Gynecology
DX: O24.419 Gestational diabetes mellitus in pregnancy, unspecified control (principal); Z3A.33 33 weeks gestation of pregnancy
CPT/HCPCS: 76818

== ENCOUNTER 2025-09-04 11:21 | Outpatient (OUT) | payer OTHER, SELFPAY ==
--- OUTSIDE RECORDS SUMMARY | 2025-08-17 13:15 | XMS_ITS | Encounter Summary ---
Author Organization [facility] tem Address [id number] [address] [place] [address] Care Team Providers Care Textile Conversion Manager Name Role Phone Riddhi Plata MD Primary Care Provider [phone] Reason for Visit * OBGYN (Routine) - Pending ReviewSpecialtyDiagnoses / ProceduresReferred By ContactReferred To ContactMaternal and Medicine Diagnoses Pre-diabetes History of gestational diabetes in prior , currently History of Arlene-en-Y gastric bypass Chronic hypertension affecting Malnutrition following gastrointestinal surgery Procedures nonstress test - Maternal Medicine Sana Lima MD [address] [place] [address] Phone: tel: fax: Maternal- Medicine at [facility] [address] [place] [address] Phone: tel: fax: Referral IDStatusReasonStart DateExpiration DateVisits RequestedVisits [id number] Encounter Details DateTypeDepartmentCare Team (Latest Contact Info)Xidahqjynyj93/08/2025 1:15 PM ESTSupport Visit Maternal- Medicine at [facility] [address] [place] [address] Class 3 severe obesity with body mass index (BMI) of 60.0 to 69.9 in adult, unspecified obesity type, unspecified whether serious comorbidity present ([facility]) (Primary Dx); Pre-diabetes; History of gestational diabetes [...] RecordedIn the past 12 months has the [employer], gas, oil, or water [employer] threatened to shut off services in your [...] care, and heating?Not hard at all06/23/2025PHQ-2AnswerDate RecordedTotal Emtls263RAPARE - TransportationAnswerDate RecordedIn the past 12 months, [...] part of a household?No06/23/2025hildcareAnswerDate RecordedDo problems getting exceptional children teacher make it difficult for you to work or study?No06/23/2025 EmploymentAnswerDate UttxdpqmDtlaqlumusAflyavh18/06/2019Hunger ScreeningAnswer Date RecordedWithin the past 12 months we worried whether our food would run out before we got money to buy more.Never True06/23/2025Within the past 12 months the food we bought just didn't last and we didn't have money to get more.Never True06/23/2025Purpose - LifeAnswerDate RecordedPurpose and direction in life Esazgys20/27/2021Estimated Date of SpkoohlbGaxttolrKau47/06/2026Based on last menstrual period of 01/09/2025Sex and Gender InformationValueDate RecordedSex Assigned at TygneCrktdf68/20/2022 9:31 PM ESTLegal ObsQgrxmm21/06/2015 11:49 AM EDTGender CaymnsphGavlvq63/20/2022 9:31 PM ESTSexual OrientationStraight 07/30/2022 9:31 PM ESTdocumented as of this encounter Last Filed Vital Signs Vital SignReadingTime TakenCommentsBlood Sfsmrjga981/7508/17/2025 2:16 PM EST done at office bhpqdFcqhb0262/08/2025 2:15 PM ESTTemperature--Respiratory Rate16 08/17/2025 2:15 PM ESTOxygen Saturation--Inhaled Oxygen Concentration--Weight-- Height--Body Mass Index--documented in this encounter Functional Status * PulseAnswerDate of NguchvqbrjGrglpw4906/08/2025 2:15 PM Génesis Saleh RN * RespAnswerDate of LobwwzkrxdXuujku5672/08/2025 2:15 PM Génesis Saleh RN * NST FHR Assessment FetusQuestionAnswerDate of AssessmentAuthorVariability6-25 BPM08/17/2025 2:23 PM Génesis Saleh RNDecelerationsNone110/18/2024 2:23 PM Génesis Saleh RNAccelerationsYes110/18/2024 2:23 PM Génesis Saleh RNAcoustic MchbzqvxanNm48/08/2025 2:23 PM Génesis Saleh RN Xtbigkww11298/08/2025 2:23 PM Génesis Saleh RN * Interpretation (Provider Documentation)QuestionAnswerDate of AssessmentAuthor Multiple Gestation?No08/17/2025 2:23 PM Sana Preston MDNonstress Test JgsompjtrmyshqVonvpjsf92/08/2025 2:23 PM Sana Preston MD * VitalsQuestionAnswerDate of LykdfuhhgwLaiufeWG132/7508/17/2025 2:16 PM Génesis Saleh RN * NST Indication & Uterine AssessmentQuestionAnswerDate of AssessmentAuthor CommentsFKC, bleeding, and labor precautions reviewed and pt verbalizes understanding. Pt eating ice chips aand drinking cold water. Dr Lima here and looked at efm tracing and states pt is OK to be discharged.08/17/2025 2:23 PM Génesis Saleh RNUterine NdtrffbcfpdgSeh17/08/2025 2:23 PM Génesis Howard RNContractionsNot mfzovub8908/17/2025 2:23 PM Génesis Saleh RN * PulseAnswerDate of DgplsebasuOqsnqj5415/08/2025 2:15 PM Génesis Saleh RN * RespAnswerDate of LixrugtgbvGcmgby8575/08/2025 2:15 PM Génesis Saleh RN * VitalsQuestionAnswerDate of DzijedryslMguxugST274/7508/17/2025 2:16 PM Génesis Saleh RN documented as of this encounter Mental Status * PulseAnswerEntry NtywQapnsp5448/08/2025 2:15 PM Génesis Saleh RN * RespAnswerEntry HnitSzuqxs8603/08/2025 2:15 PM Génesis Saleh RN * VitalsQuestionAnswerEntry UwleLvtpwfBP4277508/17/2025 2:16 PM Génesis Howard RN documented in [...] Plan of Treatment DateTypeDepartmentCare Team (Latest Contact Info)Wkaohqznnuw97/29/2025 2:30 PM ESTTelemedicine Maternal- Medicine at [facility] [address] [place] [address] Lara Looney, PA-C [address] [address] 09/08/2025 2:15 PM ESTAppointment [facility]ound [address] [place] [address] 09/15/2025 8:30 AM ESTTelemedicine Maternal- Medicine at [facility] [address] [place] [address] Sana Lima MD [address] [place] [address] Dinah Jacobsen RN [address] [address] Aquino, Stacy E, LD [address] [place] [address] 09/17/2025 10:[address] [facility] [address] [place] [phone] Jalyn Vidal, DO [address] [address] 09/22/2025 3:15 PM ESTAppointment [facility] - [facility]trasound [address] [place] [address] documented as of this encounter Goals GoalPatient Goal TypeAssociated ProblemsRecent ProgressPatient-Stated?Author safe discharge to home Kate Malave RN Note: Evaluation of progress towards goal: safe transition from hospital to home with family support. documented as of this encounter Procedures Procedure NamePriorityDate/TimeAssociated DiagnosisCommentsFETAL NONSTRESS TEST Qifsbow5408/21/2025 9:29 AM EST Pre-diabetes History of gestational [...] RN ?08/17/2025 ? Authorizing ProviderResult TypeResult StatusSana RODRIGUES GYNE ORDERABLESFinal ResultPerforming OrganizationAddressCity/State/ZIP CodePhone Number ASOBGYN documented in this encounter Visit Diagnoses Diagnosis Class 3 severe obesity with body mass index (BMI) of 60.0 to 69.9 in adult, unspecified obesity type, unspecified whether serious comorbidity present ([facility])- Primary Pre-diabetes Other abnormal glucose History of [...] this encounter Care Teams Team MemberRelationshipSpecialtyStart DateEnd Riddhi Plata MD PCP - GeneralFamily Medicine12/09/23documented as of this encounter
--- OUTSIDE RECORDS SUMMARY | 2025-08-24 14:26 | XMS_ITS | Encounter Summary ---
Author Organization [facility] tem Address [facility] [address] [place] [address] Care Team Providers Care Electric Meter Reader Name Role Phone Riddhi Plata MD Primary Care Provider [phone] Reason for Referral * Diagnostic Imaging (Routine) - Pending ReviewSpecialtyDiagnoses / Procedures Referred By ContactReferred To ContactMaternal and Medicine Diagnoses Obesity in , antepartum Intrauterine growth restriction affecting care of mother, unspecified trimester, not applicable or unspecified fetus Procedures US [facility] with or without consult Sana Lima MD [address] [place] [address] Phone: tel: fax: Maternal- Medicine at [facility] [address] [place] [address] Phone: tel: fax: Referral IDStatusReasonStart DateExpiration DateVisits RequestedVisits [id number] Reason for Visit * Diagnostic Imaging (Routine) - Pending ReviewSpecialtyDiagnoses / Procedures Referred By ContactReferred To ContactMaternal and Medicine Diagnoses Obesity in , antepartum Intrauterine growth restriction affecting care of mother, unspecified trimester, not applicable or unspecified fetus Procedures US [facility] with or without consult Sana Lima MD [address] [place] [address] Phone: tel: fax: Maternal- Medicine at [facility] [address] [place] [address] Phone: tel: fax: Referral IDStatusReasonStart DateExpiration DateVisits RequestedVisits [id number] Encounter Details DateTypeDepartmentCare Team (Latest Contact Info)Ppezyhtfoun35/15/2025 2:26 PM EST - 08/24/2025 11:59 PM ESTHospital Encounter [facility] - [facility] US Imaging [address] [place] [address] Obesity in , antepartum; Intrauterine growth restriction affecting care of mother, unspecified trimester, not applicable or unspecified fetus Discharge Disposition: Home Social History Tobacco UseTypesPacks/DayYears UsedDateSmoking Tobacco: NeverSmokeless Tobacco: NeverAlcohol UseStandard Drinks/WeekCommentsNot Currently0 (1 standard drink = 0.6 oz pure alcohol)[employer] UtilitiesAnswerDate RecordedIn the past 12 months has the [employer], [employer], or water [employer] threatened to shut off services in your [...] care, and heating?Not hard at all06/23/2025PHQ-2AnswerDate RecordedTotal Abmvi245 PRAPARE - TransportationAnswerDate RecordedIn the past 12 [...] of a household?No06/23/2025hildcareAnswerDate RecordedDo problems getting children's nursery assistant make it difficult for you to work or study?No06/23/2025 EmploymentAnswerDate AwzwurszTmovfwbfopBmphbzr53/06/2019Hunger ScreeningAnswer Date RecordedWithin the past 12 months we worried whether our food would run out before we got money to buy more.Never True06/23/2025Within the past 12 months the food we bought just didn't last and we didn't have money to get more.Never True06/23/2025Purpose - LifeAnswerDate RecordedPurpose and direction in life Qrfrqth99/27/2021Estimated Date of SkeefkakBwfxbaptNwq40/06/2026Based on last menstrual period of 01/09/2025Sex and Gender InformationValueDate RecordedSex Assigned at WyttrRqceaj81/20/2022 9:31 PM ESTLegal PqdSifqup64/06/2015 11:49 AM EDTGender ZykjkpmbHyixnt67/20/2022 9:31 PM ESTSexual OrientationStraight 07/30/2022 9:31 PM [...] morning. 30 tablet blood sugar diagnostic strip Indications:Pre-diabetes,20 weeks gestation of ,History of gestational diabetes in prior , currently 1 strip by other route as needed for high blood sugar. Strips that will be compatible with patient glucometer and supported by her insurance 100 strip busPIRone (BUSPAR) 15 mg tablet [...] route every 30 (thirty) days. 3 each blood sugar diagnostic strip Indications:Pre-diabetes,20 weeks gestation of ,History of gestational diabetes in prior , currently Check fingersticks 4 times daily, fasting and 1 hour after the start of a meal 100 strip blood-glucose sensor (DEXCOM G7 SENSOR) device Indications:Severe obesity due to excess calories affecting in second trimester ([facility]),Hx of gastric bypass1 Device by miscellaneous route every 21 days for 30 days. 3 each /documented as of this encounter Plan of Treatment DateTypeDepartmentCare Team (Latest Contact Info)Lykeeffzbgw16/29/2025 2:30 PM ESTTelemedicine Maternal- Medicine at [facility] [address] [place] [address] Lara Looney PA-C [address] [address] 09/08/2025 2:15 PM ESTAppointment [facility] [address] [place] [address] 09/15/2025 8:30 AM ESTTelemedicine Maternal- Medicine at [facility] [address] [place] [phone] Sana Lima MD [address] [place] [address] Dinah Jacobsen RN [address], [address] [place] [address] Stacy Aquino LD [address] [place] [address] 09/17/2025 10:15 AM ESTOffice Visit [facility] [address] [place] [phone] Jalyn Vidal, DO [address] [address] 09/22/2025 3:15 PM ESTAppointment [facility] [address] [place] [address] documented as of this encounter Goals GoalPatient Goal TypeAssociated ProblemsRecent ProgressPatient-Stated?Author safe discharge to home Kate Malave RN Note: Evaluation of progress towards goal: safe transition from hospital to home with family support. documented as of this encounter Procedures Procedure NamePriorityDate/TimeAssociated DiagnosisCommentsUS MFM LMTD OB, 1 OR MORE RDQRAJhkrsmc21/15/2025 3:21 PM EST Obesity in , antepartum Intrauterine growth restriction affecting care of mother, unspecified trimester, not applicable or unspecified fetus documented in this encounter Results * MFM LMTD OB, 1 OR MORE FETUS (08/24/2025 3:21 PM EST)Anatomical Region LateralityModalityOB-GYNUltrasoundSpecimen (Source)Anatomical Location / LateralityCollection Method / VolumeCollection TimeReceived Time08/24/2025 2:47 PM EST Narrative 08/24/2025 3:36 PM EST NAME: ??TARA PERKINS : 1995 SEX: F Accession Number: [id number] ORDERING PHYSICIAN: SANA LIMA REFERRING PHYSICIAN: GONZALEZ PASCAL Coding Procedures ? 02641: Ultrasound, uterus, real time with image documentation, limited one or more fetuses ? 47958: Doppler velocimetry, ; umbilical artery Indication IUGR-Poor growth, Bariatric surgery complicating , Obesity in , history of PE , History of gestational hypertension , History of prior with gestational diabetes , Supervision of high risk , Obesity in . History OB History ? 3. Para 2 ? [id number] Current Cell free DNA ?low risk analysis [...] MVP measures 5.3 cm. Recommendations Please see [facility] recommendations from prior clinical and/or ultrasound report [...] PERKINS : 1995 SEX: F Accession Number: [id number] ORDERING PHYSICIAN: SANA LIMA REFERRING PHYSICIAN: GONZALEZ PASCAL Coding Procedures 33644: Ultrasound, uterus, real time with image documentation, limited one or more fetuses 69111: Doppler velocimetry, ; umbilical artery Indication IUGR-Poor growth, Bariatric surgery complicating , Obesityin , history of PE , History of gestational hypertension , History of prior with gestationaldiabetes , Supervision of high risk , Obesity in . History OB History 3. Para 2 [id number] Current Cell free DNA low risk analysis [...] MVP measures 5.3 cm. Recommendations Please see [facility] recommendations from prior clinical and/or ultrasoundreport documentation. The patient is scheduled in 2 week(s) for growth and Doppler. The patient is scheduled in 4 week(s) for Doppler and MVP. Subsequent follow up or other follow up as clinically determined byprimary OB provider unless otherwise specified by [facility]. Results forwarded to ordering provider so [...]
--- OUTSIDE RECORDS SUMMARY | 2025-08-26 11:20 | XMS_ITS | Encounter Summary ---
Author Organization [facility] Address [address] [place] [address] Care Team Providers Care Collar Runner Name Role Phone Riddhi Plata MD Primary Care Provider [phone] Reason for Visit * ReasonCommentsRoutine Visit Encounter Details DateTypeDepartmentCare Team (Latest Contact Info)Ysqisodnizq05/17/2025 11:20 AM ESTRoutine [facility] [address] [place] [address] Winter English PA [address] [place] [address] Third trimester ([facility]); 32 weeks gestation of ([facility]); History of diet controlled gestational diabetes mellitus (GDM); H/O gastric bypass; Preeclampsia in period ([facility]); History of pulmonary embolism; Gestational diabetes mellitus (GDM) in third trimester, gestational diabetes method of control unspecified ([facility]) Social History Tobacco UseTypesPacks/DayYears UsedDateSmoking Tobacco: NeverSmokeless Tobacco: NeverAlcohol UseStandard Drinks/WeekCommentsNever0 (1 standard drink = 0.6 oz pure alcohol)Caffeine intake: 1-2 cups per day coffeeEstimated Date of QqqcyrinHsxdmsavSrn50/06/2026Based on last menstrual period of 01/09/2025Sex and Gender InformationValueDate RecordedSex Assigned at BirthNot on fileLegal Sex Iewmxk8711/22/2022 9:44 PM EDTGender IdentityNot on fileSexual OrientationNot on filedocumented as of this encounter Last Filed Vital Signs Vital SignReadingTime TakenCommentsBlood Ldcoglag389/7012 11:35 AM EST Pulse--Temperature--Respiratory Rate--Oxygen Saturation--Inhaled Oxygen Concentration--Fpvvsb973 kg (236 lb)08/26/2025 11:35 AM ESTHeight--Body Mass Index44.5901 3:32 PM ESTdocumented in this encounter Progress Notes * JOSEPHINE Chinchilla - 08/26/2025 11:20 AM EST Reason for Appointment: Patient ID: [...] mass index of 60.0-69.9 in adult ([facility]) 01/26/2023 Polycystic ovarian disease 01/26/2023 Primary hypertension 01/26/2023 Adjustment disorder with anxiety 11/30/2021 Amnesia 05/17/2023 Anxiety 07/07/2019 Anemia 06/26/2019 Depression 06/13/2019 Disorder of endocrine system 05/17/2023 Family history of diabetes during 11/28/2021 Family history of thrombosis 03/17/2022 Frequent headaches 05/17/2023 Gastroesophageal reflux disease 12/15/2019 Gestational diabetes mellitus (GDM) ([facility]) 12/09/2018 History of diet controlled gestational [...] to infectious organism 07/30/2022 Preeclampsia in period ([facility]) 11/26/2021 Acute pulmonary embolism ([facility]) 05/17/2023 Single subsegmental pulmonary embolism without acute cor pulmonale ([facility]) 05/17/2023 Seasonal allergic rhinitis due to pollen 12/15/2019 Thyroid nodule 05/17/2023 Urinary tract infection without hematuria 05/17/2023 LUCIANO on CPAP 02/22/2023 History of pulmonary embolism 03/17/2022 H/O gastric bypass 04/20/2025 Resolved Ambulatory Problems Diagnosis Date Noted No Resolved Ambulatory Problems Past Medical History: Diagnosis Date Acute memory impairment COVID 02/2020 Encounter for insertion of Mirena IUD GERD without esophagitis Gestational diabetes ([facility]) H/O blood clots H/O: hypertension High blood pressure History of being hospitalized Hormone imbalance Intrauterine device surveillance Irregular bleeding Morbid obesity with BMI of 50.0-59.9, adult ([facility]) Nausea Nausea with vomiting Pneumonia 07/30/2022 hypertension ([facility]) Pulmonary embolism ([facility]) 11/2021 Well woman exam HISTORY PAST MEDICAL HISTORY SOCIAL HISTORY Past Medical History: Diagnosis Date Acute memory impairment Anemia Asthma (HCC) COVID 02/2020 Depression Encounter for insertion of Mirena IUD Frequent headaches GERD without esophagitis Gestational diabetes ([facility]) H/O blood clots H/O gastric bypass H/O: hypertension High blood pressure History of being hospitalized Pt was re-admitted to [facility] for HTN (11/2021) , Pt had a baby (11/21/21) Hormone imbalance Intrauterine device surveillance Irregular bleeding Morbid obesity with BMI of 50.0-59.9, adult ([facility]) Nausea Nausea with vomiting Pneumonia 07/30/2022 hypertension ([facility]) Pulmonary embolism (HCC) 11/2021 Rt. ; [facility] Well woman exam Social History Tobacco [...] Negative. Gastrointestinal: Negative. Genitourinary: Negative. Musculoskeletal: Negative. Neurological: Negative. Psychiatric/Behavioral: Negative. OBJECTIVE Objective: Physical Exam Constitutional: Appearance: Normal appearance. She is normal weight. HENT: Head: Normocephalic. Cardiovascular: Rate and Rhythm: Normal rate. Pulses: Normal pulses. Pulmonary: Effort: Pulmonary effort is normal. Breath sounds: Normal breath sounds. Abdominal: Palpations: Abdomen is soft. Musculoskeletal: General: Normal range of motion. Neurological: General: No focal deficit present. Mental Status: She is alert and oriented to person, place, and time. Psychiatric: Mood and Affect: Mood normal. Behavior: Behavior normal. Thought Content: Thought content normal. Judgment: Judgment normal. Vitals and nursing note reviewed. Vitals: Estimated body mass index is 44.55 kg/m?? as calculated from the following: Height as of 10/10/24: 5' 1 . Weight as of 08/11/25: 235 lb 12.8 oz. BP: Patient's last menstrual period was 01/09/2025. Assessment/Plan ICD-10-CM 1. Third trimester ([facility]) Z34.93 2. 32 weeks gestation of ([facility]) Z3A.32 3. History of diet controlled gestational diabetes mellitus (GDM) Z86.32 4. H/O gastric bypass Z98.84 5. Preeclampsia in period ([facility]) O14.95 6. History of pulmonary embolism Z86.711 7. Gestational diabetes mellitus (GDM) in third trimester, gestational diabetes method of control unspecified ([facility]) O24.419 Assessment/Plan Return OB: Patient presents today for a routine obstetrics appointment. Patient is currently 32w5d . Patient states she is doing well but has complaints of being tired due to current . Patient has verbalizes frequent movement. labor precautions was discussed/given and patient was instructed to perform kick counts three times a day. No orders of the defined types were placed in this encounter. Follow Up: Patient is to return to office in 2 week for routine OB appointment. Documented by Marva Cooney MA on behalf of: JOSEPHINE Chinchilla documented in this encounter Plan of Treatment DateTypeDepartmentCare Team (Latest Contact Info)Avwxmhkflyp54/31/2025 9:40 AM ESTRoutine [facility] [address] [place] [address] Nena Spicer NP [address] [place] [address] documented as of this encounter Goals GoalPatient Goal TypeAssociated ProblemsRecent ProgressPatient-Stated?Author Help patient manage antidepressant medication Care PlanPatient on antidepressant monitoring Riddhi Mcdonald MD Baseline PHQ-9 Care PlanBaseline PHQ-9Riddhi Lerma MDdocumented as of this encounter Procedures Procedure NamePriorityDate/TimeAssociated DiagnosisCommentsPOCT URINALYSIS QXROYQRUPjhozwe92/17/2025 11:37 AM EST Third trimester ([facility]) documented in this encounter Results * (ABNORMAL) POCT urinalysis dipstick manually resulted (08/26/2025 11:37 AM EST)ComponentValueRef RangeTest MethodAnalysis TimePerformed AtPathologist SignatureColor, UAYellowClarity, UAClearGlucose, UANegativeNegative - 2000(110) ++++ mg/dLBilirubin, UANegativeNegative - 4(70) +++ mg/dLKetones, UA NegativeNegative - 160(16) ++++ mg/dLSpec Grav, UA1.0201 - 1.03Blood, UA NegativeNegative - 50 Raul/mcLpH, UA6.05 - 9Protein, UANegativeNegative - 2000(20) ++++ mg/dLUrobilinogen, UA1.00.2 - 12 mg/dLLeukocytes, UA1+Negative - 500+++ Ramo/mcLNitrite, UANegativeNegative - PositiveSpecimen (Source) Anatomical Location / LateralityCollection Method / VolumeCollection Time Received VtwaKskef99/17/2025 11:37 AM EST Narrative Authorizing ProviderResult TypeResult StatusSentara [facility] TEST ENTER/EDIT ORDERABLESFinal Result documented in this encounter Visit Diagnoses Diagnosis Third trimester ([facility]) state, incidental 32 weeks gestation of ([facility]) History of diet controlled gestational diabetes mellitus (GDM) H/O gastric bypass Preeclampsia in period ([facility]) History of pulmonary embolism Personal history of venous thrombosis and embolism Gestational diabetes mellitus (GDM) in third trimester, gestational diabetes method of control unspecified ([facility]) documented in this encounter Additional Health Concerns Active ProblemsNoted DateDiagnosed DatePatient on antidepressant monitoring plan 4Baseline PHQ-904documented as of this encounter Care Teams Team MemberRelationshipSpecialtyStart DateEnd Date Riddhi Plata MD [address] [place] [address] PCP - GeneralFamily Medicine01/16/23documented as of this encounter
--- OUTSIDE RECORDS SUMMARY | 2025-08-27 14:30 | XMS_ITS | Encounter Summary ---
Author Organization [facility] Address [id number] [address] [place] [address] Care Team Providers Care Air Conditioning Installer Supervisor Name Role Phone Riddhi Plata MD Primary Care Provider [phone] Encounter Details DateTypeDepartmentCare Team (Latest Contact Info)Dlafektzrnu27/18/2025 2:30 PM ESTTelemedicine Maternal- [facility] at [facility] [address] [place] [phone] Viky Romano, RAPIER INSERTION LOOM FIXER-BUILDING CONSTRUCTION ENGINEER [address] [place] [address] Anxiety and depression (Primary Dx); History of pulmonary embolism; Mild intermittent asthma, unspecified whether complicated; Severe obesity due to excess calories affecting in second trimester ([facility]); Hx of gastric bypass Social History Tobacco UseTypesPacks/DayYears UsedDateSmoking Tobacco: NeverSmokeless Tobacco: NeverAlcohol UseStandard Drinks/WeekCommentsNot Currently0 (1 standard drink = 0.6 oz pure alcohol)socialAH UtilitiesAnswerDate RecordedIn the past 12 months has the electric, gas, oil, or water company threatened to shut off services in your home?No5AUDIT-CAnswerDate RecordedQ1: How often do you have a [...] care, and heating?Not hard at all06/23/2025PHQ-2AnswerDate RecordedTotal Xsxtw822 PRAPARE - TransportationAnswerDate RecordedIn the past 12 [...] of a household?No06/23/2025hildcareAnswerDate RecordedDo problems getting child development assistant make it difficult for you to work or study?No06/23/2025 EmploymentAnswerDate XhqucfceDnhjyspbpvXanjqha99/06/2019Hunger ScreeningAnswer Date RecordedWithin the past 12 months we worried whether our food would run out before we got money to buy more.Never True06/23/2025Within the past 12 months the food we bought just didn't last and we didn't have money to get more.Never True06/23/2025Purpose - LifeAnswerDate RecordedPurpose and direction in life Lngptxt74/27/2021Estimated Date of QaweusjvLxalivkeOjf68/06/2026Based on last menstrual period of 01/09/2025Sex and Gender InformationValueDate RecordedSex Assigned at YdtmyWsqehm75/20/2022 9:31 PM ESTLegal UpzZsngwl93/06/2015 11:49 AM EDTGender GcthmxolSwwgul40/20/2022 9:31 PM ESTSexual OrientationStraight 07/30/2022 9:31 PM ESTdocumented as of this encounter Progress Notes * Viky Romano, RAPIER INSERTION LOOM FIXER-BUILDING CONSTRUCTION ENGINEER - 08/27/2025 2:30 PM EST REASON FOR OFFICE VISIT: Video Visit via Real-time Synchronous Audiovisual Provider Location: [facility] AT [address] [phone] Patient Location: Patient's home Video Visit Consent Statement: I discussed risks, benefits, and alternatives of a real-time synchronous audiovisual consultation with the patient (and any accompanying persons) including the risks that the patient's personal health details and medical records will be discussed over real-time, synchronous, interactive video/audio/telecommunication technology, the visit will not be recorded withoutthe express consent of both the provider and the patient, and that there are some limitations compared to xoet-pd-vdsm evaluations. The patient consented to the presence of additional virtual and/or in-person participants. We elected to proceed. 1. GDMA2; A1c 5.0% on 03/25/25 2. Anxiety/depression on buspar - reports stability- declined zoloft due to not working well 3. Hx PE - on lovenox 4. Hx gastric bypass sx in 04/2024 5. cHTN prior to gastric bypass 6. gHTN- 20wks BP increased this - now on labetalol 200mg TID 7. Hx post pre-eclampsia in G1 and G2 HISTORY OF PRESENT ILLNESS: Shira Jett is a pleasant 30 y.o. at 32w6d due on Estimated Date of Delivery: 10/16/25. Currently the patient has no complaints. The patient denies RIZVI, nausea, vomiting, abdominal pain, vaginal bleeding, contractions, leaking fluid or chest pain. +. She is being followed at [facility] due to GDMA2. States she is following meal plan as much as possible and eating evening snack. See CGM Past Medical History PAST OBSTETRICAL HISTORY: OB History 3 Para 2 Term 2 0 AB 0 Living 2 SAB 0 IAB 0 Ectopic 0 Multiple 0 Live Births 2 SURGICAL HISTORY: Past Surgical History: Procedure Laterality Date CARDIAC CATHETERIZATION 07/30/2022 CARDIAC CATHETERIZATION 11/23/2018 SHIRLEYLETTY DV5 BYPASS GASTRIC BONNIE-EN Y N/A 04/23/2024 Performed by Ken Manzo MD at [place] [facility] FINE NEEDLE ASPIRATION 06/14/2020 US Guided Percutaneous Aspiration MINI-LAPAROTOMY removal of IUD PELVIC LAPAROSCOPY 11/03/2022 with removal of IUD ALLERGIES: Allergies Allergen Reactions Sumatriptan Anaphylaxis and Other (See Comments) IMITREX FOR MIGRAINES CURRENT MEDICATIONS: Current Outpatient Medications: acetaminophen (TYLENOL EXTRA STRENGTH) [...] a meal, Disp: 100 strip, Rfl: 1 blood-glucose sensor (DEXCOM G7 SENSOR) device, 1 Device by miscellaneous route every 21 days for 30 days., Disp: 3 each, Rfl: 10 busPIRone (BUSPAR) 15 mg tablet, Take 1 [...] the morning. (Patient not taking: Reported on 08/17/2025), Disp: , Rfl: 115/iron/folic acid ( 19 ORAL), Take by mouth., Disp: , Rfl: sennosides-docusate sodium (SENOKOT-S) 8.6-50 mg, Take 1 tablet by mouth in the morning., Disp: 30 tablet, Rfl: 6 syringe with needle (BD LUER-KARENA SYRINGE) 3 mL 25 x 1 1/2 syringe, 1 SYRG by miscellaneous route every 30 (thirty) days., Disp: 3 each, Rfl: 1 LABS: Lab Results Component Value Date LDLCALC 109 03/24/2024 CREATININE 0.44 06/23/2025 Lab Results Component Value Date TSH 1.53 03/24/2024 No results found for: COGFANQYN08 Lab Results Component Value Date CREATININE 0.44 06/23/2025 BUN 9 06/23/2025 K 3.9 06/23/2025 CL 108 06/23/2025 CO2 20 (L) 06/23/2025 Lab Results Component Value Date ALT 16 06/23/2025 AST 11 06/23/2025 ALKPHOS 62 06/23/2025 Lab Results Component Value Date HGBA1C 5.0 03/25/2025 HGBA1C 6.0 (H) 03/24/2024 HGBA1C 6.1 (H) 11/08/2023 REVIEW OF SYSTEMS: Head and Neck: Negative for any dizziness and headaches. Cardiovascular and Respiratory System: Denies any chest pain, shortness of breath, and coughing. Abdominal and System: Denies any abdominal pain, nausea, vomiting, vaginal bleeding, and vaginal discharge PHYSICAL EXAMINATION: LMP 01/09/2025 Gravid abdomen, Alert & Oriented. Respirations not labored. DISCUSSION: Hyperglycemia Importance of good blood sugar control was emphasized. The potential effects of uncontrolled diabetes before and during on herself were discussed including: preeclampsia, induced hypertension, labor, C- section, and polyhydramnios. Potential effects on baby were explained: stillbirth, miscarriage, macrosomia, jaundice, trauma, hypoglycemia, respiratory distress and hypocalcemia. Long-term risk to offspring from poor maternal glycemic control include: obesity, cardiovascular disease, impaired glucose tolerance and Type 2 diabetes. Medication initiation Initiation of medication: When diet and exercise fail to maintain normal blood glucose level, medication therapy is indicated. Medication is initiated when > 20% of the blood glucose values in oneweek are out of range, or BG values are repeatedly elevated a specific time of day; and meal plan or activity cannot be modified to correct elevated blood glucose. Oral vs. SQ treatment Discussed oral hyperglycemic agent Metformin. Explained this medication does cross the placenta andreach the baby. Little research has been done on fpc effects of Metformin exposure to the fetus. We do use in with every effort to minimize exposure. Also discussed possible GI side effects from this medication. Discussed insulin which does not cross the placenta, nor have the GI side effects like Metformin. Insulin is the recommended first line of treatment for diabetes in . Insulin administration Patient was instructed on: action of prescribed insulin, when to take prescribed doses in relation to daily schedule/meals, use of an insulin pen, how to given an injection into the sub-Q tissues with recommendation on use of abdomen, rotation of injections within designated site, proper disposal of sharps, and hypoglycemia. Patient education materials emailed: insulin action chart, hypoglycemia management, proper disposal of sharps, and procedure guide sheet for use of an insulin pen. Recommended carbohydrate allocation ranges: 30-45 g for breakfast, 45-60 g for lunch and dinner, and 15-g snacks roughly 2-3 hours after each meal. A1c less than 6% has the lowest risk for LGA SUMMARY/RECOMMENDATION: The following is a summary of our recommendations: 1. Blood work: Pre-eclampsia bw per primary ob in the presence of concerning s/s for pre-eclampsia 2. Medication: Humalog initiated at 2 units before breakfast lunch and dinner Other medications as above 3. testing: Twice weekly NST w/ weekly DVP growth ultrasounds every 4 weeks starting at 28 weeks 4. Delivery timing: See previous MFM consult note- 37wks for gHTN or before if pre-eclampsia presents Use 1/2 dose of insulin the night before her planned delivery. GDMA2:may monitor patient's BG every 4hrs during latent labor, every 1 hr during active labor with goal BG to be less than 140mg/dl. Can use insulin sliding scale prn hyperglycemia. 5. Post : Please obtain a 2-hour GTT directly while still hospitalized after delivery or 4-12 weeks out patient and then A1c yearly as the patient has a 20% risk of having or developing diabetes later on. 6. Follow-up appointment: In 2 weeks to Maternal- Medicine. I asked her to keep sending values to us weekly by e-mail to: [email or web address] or by fax to: [phone] TIME OF CONSULTATION: 45 minutes with the patient, >50% in discussion and counseling, coordination of care which was xlhc-gm-sffi, review of records and communication back to referring provider. MARCEL Renee 08/27/25 1517 documented in this encounter Plan of Treatment DateTypeDepartmentCare Team (Latest Contact Info)Mubtifcggno12/29/2025 2:30 PM ESTTelemedicine [facility]aternal- [facility] at [facility] [address] [place] [phone] Lara Looney PA-C [address] [facility] [facility] [place] CITYRam[place] [address] [address] 09/08/2025 2:15 PM ESTAppointment [facility] [address] [place] [address] 09/15/2025 8:30 AM ESTTelemedicine Maternal- Medicine at [facility] [address] [place] [phone] Sana Lima MD [address] [place] [address] Dinah Jacobsen, RN [address] [place] [address] Stacy Aquino, TED [address] [place] [address] 09/17/2025 10:15 AM ESTOffice Visit [facility] [address] [facility] [place] [phone] Jalyn Vidal, DO [address] [address] 09/22/2025 3:15 PM ESTAppointment [facility] [address] [place] [phone] documented as of this encounter Goals GoalPatient Goal TypeAssociated ProblemsRecent ProgressPatient-Stated?Author safe discharge to home Kate Malave, LEANDRO Note: Evaluation of progress towards goal: safe transition from hospital to home with family support. documented as of this encounter Visit Diagnoses Diagnosis Anxiety and depression- Primary History of pulmonary embolism Personal history of venous thrombosis and embolism Mild intermittent asthma, unspecified whether complicated Severe obesity due to excess calories affecting in second trimester ([facility]) Hx of gastric bypass documented in this encounter Additional Health Concerns AssessmentNoted TimePHQ-9 Depression Total Score: 3:05 PM EDT documented as of this encounter Care Teams Team MemberRelationshipSpecialtyStart DateEnd Date Riddhi Plata MD PCP - GeneralFamily Medicine12/09/23documented as of this encounter
--- OUTSIDE RECORDS SUMMARY | 2025-09-04 11:25 | XMS_ITS | Encounter Summary ---
Author Organization [facility] tem Address [id number] [address] [place] [address] Care Team Providers Care Sewing Machine Repairer Name Role Phone Riddhi Plata MD Primary Care Provider [phone] Encounter Details DateTypeDepartmentCare Team (Latest Contact Info)Oseyvrqpptm88/18/2025Telephone Maternal- Medicine at [facility] [address] [facility] [place] [phone] Cristhian Taylor Social History Tobacco UseTypesPacks/DayYears UsedDateSmoking Tobacco: NeverSmokeless Tobacco: NeverAlcohol UseStandard Drinks/WeekCommentsNot Currently0 (1 standard drink = 0.6 oz pure alcohol)[facility] UtilitiesAnswerDate RecordedIn the past 12 months has the [employer], gas, oil, or water [employer] threatened to shut off services in your [...] care, and heating?Not hard at all06/23/2025PHQ-2AnswerDate RecordedTotal Lrupq156 PRAPARE - TransportationAnswerDate RecordedIn the past 12 [...] of a household?No06/23/2025hildcareAnswerDate RecordedDo problems getting childcare director make it difficult for you to work or study?No06/23/2025 EmploymentAnswerDate RwbixclmJcmekfckstXtjapss83/06/2019Hunger ScreeningAnswer Date RecordedWithin the past 12 months we worried whether our food would run out before we got money to buy more.Never True06/23/2025Within the past 12 months the food we bought just didn't last and we didn't have money to get more.Never True06/23/2025Purpose - LifeAnswerDate RecordedPurpose and direction in life Xqgxjlr89/27/2021Estimated Date of GwqzcrskJzuyjmlrUcj29/06/2026Based on last menstrual period of 01/09/2025Sex and Gender InformationValueDate RecordedSex Assigned at YdnpjWyhtxk60/20/2022 9:31 PM ESTLegal ZkaPjytea11/06/2015 11:49 AM EDTGender EzfqnpvbYjifmp57/20/2022 9:31 PM ESTSexual OrientationStraight 07/30/2022 9:31 PM ESTdocumented as of this encounter Miscellaneous Notes * Telephone Encounter - Cristhian Taylor - 08/27/2025 3:14 PM EST Called pt and lmom in regards to scheduling 2 week follow up with a provider for diabetes. Told to call schedulers when able to do so. ramya documented in this encounter Plan of Treatment DateTypeDepartmentCare Team (Latest Contact Info)Yncqsisbqkm12/29/2025 2:30 PM ESTTelemedicine Maternal- Medicine at [facility] [address] [place] [address] Lara Looney PA-C [address] [address] 09/08/2025 2:15 PM ESTAppointment [facility] [address] [place] [address] 09/15/2025 8:30 AM ESTTelemedicine Maternal- Medicine at [facility] [address] [place] [address] Sana Lima MD [address] [place] [address] Dinah Jacobsen, RN [address] [address] Stacy Aquino LD [address] [address] 09/17/2025 10:15 AM ESTOffice Visit [facility] [address] [phone] Jalyn Vidal, DO [address] [address] 09/22/2025 3:15 PM ESTAppointment [facility] [address] [place] [address] documented as of this encounter Goals GoalPatient Goal TypeAssociated ProblemsRecent ProgressPatient-Stated?Author safe discharge to home Kate Mlaave RN Note: Evaluation of progress towards goal: [...]
--- OUTSIDE RECORDS SUMMARY | 2025-09-04 11:25 | XMS_ITS | Encounter Summary ---
Author Organization [facility] Address [address] [place] [address] Care Team Providers Care Candy Catcher Name Role Phone Jessica Mariscal MD Primary Care Provider [phone] Encounter Details DateTypeDepartmentCare Team (Latest Contact Info)Azbghgpmcuh87/23/2025linisync Result Encounter [facility] External Department Unsolicited Gonzalez Morales DO [address] [place] [address] Social History Tobacco UseTypesPacks/DayYears UsedDateSmoking Tobacco: NeverSmokeless Tobacco: NeverAlcohol UseStandard Drinks/WeekCommentsNever0 (1 standard drink = 0.6 oz pure alcohol)Caffeine intake: 1-2 cups per day coffeeEstimated Date of JenujkdkUnsouywfUyx99/06/2026ased on last menstrual period of 01/09/2025Sex and Gender InformationValueDate RecordedSex Assigned at BirthNot on fileLegal Sex Fxgiwv3111/22/2022 9:44 PM EDTGender IdentityNot on fileSexual OrientationNot on filedocumented as of this encounter Plan of Treatment DateTypeDepartmentCare Team (Latest Contact Info)Tqskiecqsxz47/31/2025 9:40 AM ESTRoutine [facility] Nichole TAYLOR [address] [place] [address] Nena Spicer, RONALD [address] [place] [address] documented as of this encounter Goals GoalPatient Goal TypeAssociated ProblemsRecent ProgressPatient-Stated?Author Help patient manage antidepressant medication Care PlanPatient on antidepressant monitoring Jessica Mcdonald MD Baseline PHQ-9 Care PlanBaseline PHQ-9Jessica Lerma MDdocumented as of this encounter Procedures Procedure NamePriorityDate/TimeAssociated DiagnosisCommentsUS OB BPP W NON-VNQUJN4009/01/2025 11:45 AM EST documented in this encounter Results * US OB BPP W NON-STRESS (09/01/2025 11:45 AM EST)Anatomical Region LateralityModalityOtherSpecimen (Source)Anatomical Location / Laterality Collection Method / VolumeCollection TimeReceived Time09/01/2025 11:45 AM EST Narrative 09/01/2025 11:47 AM EST [facility] ?[address] ? [place] [address] ? Ultrasound Report ? Signed ? Patient: SHIRA JETT L ? MR#: [id number] ?? : 1995 ?Acct:[id number] ?? Age/Sex: 30 / F ?ADM Date: 09/01/25 ?? Loc: [facility] ??256-1 ? Attending Dr: Gonzalez Morales D.O. ? Ordering Physician: Gonzalez Morales D.O. ?? Date of Service: 09/01/25 ?? Procedure(s): US OB BPP w non-stress ?? Accession Number(s): [id number] ? cc: JESSICA MARISCAL ; Gonzalez Morales D.O. ? [facility] ? [address] ? [place] [address] ? Patient Name: ?? SHIRA JETT ? MRN: [id number] ? date: 1995 ?Sex: F ?? Assigned Patient Location: US ?? Current Patient Location: US ?? Accession/Order Number: [id number] ?? Exam Date: 09/01/2025 ??11:05 ?Report Date: 09/01/2025 ??11:45 ? At the request of: ?? GONZALEZ ??CARMEN ??DO ? Procedure: ??US OB BPP w non-stress ? BIOPHYSICAL PROFILE: ? CLINICAL INFORMATION: PRIMARY HYPERTENSION ? COMPARISON: 08/25/2025 ? There is a single live intrauterine gestation in cephalic presentation. ??The ?? reported gestational age is 33 weeks 4 days. ??The heart rate measures ?? 148 beats per minute. ? FINDINGS: ? TONE: [...] 2 cm ? [Y] ? 2/2 ?MELY: 15.6 cm ? Total score: ? 8/8 ? US/US OB BPP w non-stress ?? IMPRESSION: ? NORMAL BIOPHYSICAL PROFILE ? Impression dictated by: Lakshmi Harmon M.D. ??09/01/2025 11:45 AM ? Dictation Location: RADIO-PC-30 ? Electronically authenticated by: [id number] ??Y ?? Date: 09/01/2025 ??11:45 ? Dictated By: ?Lakshmi Harmon M.D. ? Signed By: ?12/23/25 1147 ? DD/ 1145 ? TD/TT: ? [employer] Employee: Procedure Note Radiology, Radiologist, MD - 09/01/2025 [place] [address] Ultrasound Report Signed Patient: SHIRA JETT LMR#: [id number] : 1995Acct:[id number] Age/Sex: 30 / FADM Date: 09/01/25 Loc: [facility] 256-[address]: Gonzalez Morales D.O. Ordering Physician: Gonzalez Morales D.O. Date of Service: 09/01/25 Procedure(s): US OB BPP w non-stress Accession Number(s): [id number] cc: JESSICA MARISCAL ; Gonzalez Morales D.O. [facility] [place] [id number] Patient Name: SHIRA JETT MRN: [id number] date: 1995 Sex: F Assigned Patient Location: US Current Patient Location: US Accession/Order Number: [id number] Exam Date: 09/01/2025 11:05 Report Date: 09/01/2025 11:45 At the request of: GONZALEZ MORALES DO Procedure: US OB BPP w non-stress BIOPHYSICAL PROFILE: CLINICAL INFORMATION: PRIMARY HYPERTENSION COMPARISON: 08/25/2025 There is a single live intrauterine gestation in cephalic presentation.The reported gestational age is 33 weeks 4 days. The heart ratemeasures 148 beats per minute. FINDINGS: TONE: 1 or [...] greater than 2 cm [Y] 2/2 MELY: 15.6 cm Total score: 8/8 US/US OB BPP w non-stress IMPRESSION: NORMAL BIOPHYSICAL PROFILE Impression dictated by: Lakshmi Harmon M.D. 09/01/2025 11:45 AM Dictation Location: [address] Electronically authenticated by: [id number] Y Date: 1:45 Dictated By: Lakshmi Harmon M.D. Signed By:09/01/25 1147 DD/ 1145 TD/TT: [employer] Employee: Authorizing ProviderResult TypeResult StatusCorey Carmen DOCLINISYNC IMAGINGFinal Result documented in this encounter Visit Diagnoses Not on filedocumented in this encounter Additional Health Concerns Active ProblemsNoted DateDiagnosed DatePatient on antidepressant monitoring plan 4Baseline PHQ-904documented as of this encounter Care Teams Team MemberRelationshipSpecialtyStart DateEnd Date Jessica Mariscal MD [address] [place] [address] PCP - GeneralFamily Medicine01/16/23documented as of this encounter
--- OUTSIDE RECORDS SUMMARY | 2025-09-04 11:25 | XMS_ITS | Encounter Summary ---
Author Organization [facility] tem Address [id number] [address] [place] [address] Care Team Providers Care Wiper Blender Name Role Phone Riddhi Plata MD Primary Care Provider [phone] Encounter Details DateTypeDepartmentCare Team (Latest Contact Info)Agrboxeycbe10/15/2025Orders Only Maternal- Medicine at [facility] [address] [place] [phone] Sana Lima MD [address] [place] [address] Severe obesity due to excess calories affecting in second trimester ([facility]) (Primary Dx); Hx of gastric bypass Social History Tobacco UseTypesPacks/DayYears UsedDateSmoking Tobacco: NeverSmokeless Tobacco: NeverAlcohol UseStandard Drinks/WeekCommentsNot Currently0 (1 standard drink = 0.6 oz pure alcohol)socialH[facility] UtilitiesAnswerDate RecordedIn the past 12 months [...] care, and heating?Not hard at all06/23/2025PHQ-2AnswerDate RecordedTotal Fdddu247 PRAPARE - TransportationAnswerDate RecordedIn the past 12 [...] a household?No06/23/2025hildcareAnswerDate RecordedDo problems getting child care assistant make it difficult for you to work or study?No06/23/2025 EmploymentAnswerDate YnxwwjmsKdotmxjaapJeoxhbh00/06/2019Hunger ScreeningAnswer Date RecordedWithin the past 12 months we worried whether our food would run out before we got money to buy more.Never True06/23/2025Within the past 12 months the food we bought just didn't last and we didn't have money to get more.Never True06/23/2025Purpose - LifeAnswerDate RecordedPurpose and direction in life Knmkvgq94/27/2021Estimated Date of HpshndsrYfuuxrzlYac95/06/2026Based on last menstrual period of 01/09/2025Sex and Gender InformationValueDate RecordedSex Assigned at WjodwElrmux84/20/2022 9:31 PM ESTLegal OhkPaeibq20/06/2015 11:49 AM EDTGender FpgetvulNuaroy96/20/2022 9:31 PM ESTSexual OrientationStraight 07/30/2022 9:31 PM ESTdocumented as of this encounter Plan of Treatment DateTypeDepartmentCare Team (Latest Contact Info)Ybaidnwklii38/29/2025 2:30 PM ESTTelemedicine Maternal- Medicine at [facility] [address] [place] [address] Lara Looney PA-C [address] [address] 09/08/2025 2:15 PM ESTAppointment [facility] [address] [place] [address] 09/15/2025 8:30 AM ESTTelemedicine Maternal- Medicine at [facility] [address] [place] [address] Sana Lima MD [address] [place] [address] Dinah Jacobsen RN [address] [address] Stacy Aquino LD [address] [facility] [address] [address] 09/17/2025 10:15 AM ESTOffice Visit [facility] [address] [place] [phone] Jalyn Vidal, DO [address] [address] 09/22/2025 3:15 PM ESTAppointment [facility] [address] [place] [address] documented as of this encounter [...]
--- OUTSIDE RECORDS SUMMARY | 2025-09-04 11:25 | XMS_ITS | Encounter Summary ---
Author Organization [facility] tem Address [facility] [address] [place] [address] Care Team Providers Care Mobile Paint Specialist Name Role Phone Riddhi Plata MD Primary Care Provider [phone] Encounter Details DateTypeDepartmentCare Team (Latest Contact Info)Bhcpavrkklw36/24/2025Orders Only Maternal- Medicine at [facility] [address] [facility] [place] [phone] Tracy Kolb, IS [facility]ST[facility] [address] [facility] [address] [place] [address] H/O gastric bypass (Primary Dx) Social History Tobacco UseTypesPacks/DayYears UsedDateSmoking Tobacco: NeverSmokeless Tobacco: NeverAlcohol UseStandard Drinks/WeekCommentsNot Currently0 (1 standard drink = 0.6 oz pure alcohol)socialCLEVELAND CLINIC [facility] UtilitiesAnswerDate RecordedIn the past 12 months has the [employer], gas, oil, or water [employer] threatened to shut off services in your [...] care, and heating?Not hard at all06/23/2025PHQ-2AnswerDate RecordedTotal Qsmwg029 PRAPARE - TransportationAnswerDate RecordedIn the past 12 [...] of a household?No06/23/2025hildcareAnswerDate RecordedDo problems getting children's literature professor make it difficult for you to work or study?No06/23/2025 EmploymentAnswerDate KfdkshmiPsfretfamxKhroxzb19/06/2019Hunger ScreeningAnswer Date RecordedWithin the past 12 months we worried whether our food would run out before we got money to buy more.Never True06/23/2025Within the past 12 months the food we bought just didn't last and we didn't have money to get more.Never True06/23/2025Purpose - LifeAnswerDate RecordedPurpose and direction in life Xxzfxmj86/27/2021Estimated Date of YshnnjizNtxjiiwtEgv56/06/2026Based on last menstrual period of 01/09/2025Sex and Gender InformationValueDate RecordedSex Assigned at PyrhhPojymg14/20/2022 9:31 PM ESTLegal NmyJxedon75/06/2015 11:49 AM EDTGender MdzgjmgfKozzop85/20/2022 9:31 PM ESTSexual OrientationStraight 07/30/2022 9:31 PM ESTdocumented as of this encounter Plan of Treatment DateTypeDepartmentCare Team (Latest Contact Info)Bxqybqruhdh43/29/2025 2:30 PM ESTTelemedicine Maternal- Medicine at [facility] [address] [place] [address] Lara Looney PA-C [address] [facility] [address] [address] 09/08/2025 2:15 PM ESTAppointment [facility] - Ultrasound [address] [place] [address] 09/15/2025 8:30 AM ESTTelemedicine Maternal- Medicine at [facility] [address] [facility] [place] [address] Sana Lima MD [address] [place] [address] Dinah Jacobsen RN [address] [facility] [address] [address] Stacy Aquino LD [address] [facility] [address] [address] 09/17/2025 10:15 AM ESTOffice Visit [facility] [address] [place] [address] Jalyn Vidal, DO [address] [id number] 09/22/2025 3:15 PM ESTAppointment [facility] - Ultrasound [address] [place] [address] documented as of this encounter Goals GoalPatient Goal TypeAssociated ProblemsRecent ProgressPatient-Stated?Author safe discharge to home Kate Malave, RN Note: Evaluation of progress towards goal: safe transition from hospital to home with family support. documented as of this encounter Visit Diagnoses Diagnosis H/O gastric bypass- Primary documented in this encounter Additional Health Concerns AssessmentNoted TimePHQ-9 Depression Total Score: 3:05 PM EDT documented as of this encounter Care Teams Team MemberRelationshipSpecialtyStart DateEnd Date Riddhi Plata MD PCP - GeneralFamily Medicine12/09/23documented as of this encounter
--- OUTSIDE RECORDS SUMMARY | 2025-09-04 11:25 | XMS_ITS | Clinical Summary ---
Author Organization [facility] Healthcare Address [address] [place] [address] Care Team Providers Care Solar Site Assessment Specialist Name Role Phone Riddhi Plata MD Primary Care Provider [phone] Allergies Active AllergyReactionsCriticalityNoted DateCommentsSumatriptanAnaphylaxis, UnxhnhiBbqo42/21/2019 IMITREX FOR MIGRAINES Other Reaction(s): Other (See [...] 28-0.8 MG tablet Indications:, unspecified gestational age ([facility]),Encounter for supervision of normal first in first trimester ([facility])Take 1 tablet by mouth Daily 30 tablet 60506Active busPIRone (Buspar) 15 MG tablet Indications:AnxietyTAKE 1 TABLET BY MOUTH 2 TIMES A DAY (MORNING AND BEFORE BEDTIME) 180 tablet 5Active labetalol (Normodyne) 200 MG tablet Indications:Pre-existing essential hypertension during , antepartum ([facility]),Primary hypertension,History of pulmonary embolismTAKE 1 TABLET [...] Discontinued(Reorder) Active Problems ProblemNoted DateDiagnosed DateH/O gastric tlkluq1604/20/20258143Udbmpuy11/07/2023 Disorder of endocrine knufzf8105/17/2023Frequent nradrxqcu58/07/2023Irregular zuffpci6305/17/2023Menorrhagia with regular cycle05/17/2023lass 3 severe obesity due to excess calories with serious comorbidity and body mass index (BMI) of50.0 to 59.9 in adult05/17/2023Nausea and tygrckyn64/07/2023cute pulmonary embolism 05/17/2023Single subsegmental pulmonary embolism without acute cor pulmonale 05/17/2023Thyroid lszile3005/17/2023Urinary tract infection without hematuria 05/17/2023OSA on CPAP02/22/2023Morbid obesity with body mass index of 60.0-69.9 in adult01/26/2023olycystic ovarian dhslcdt3401/26/2023rimary hypertension 01/26/2023neumonia due to infectious ziaxksnw11/20/2022Family history of vpxtkodldc12/08/2022History of pulmonary fuaeqgnw99/08/2022djustment disorder with cgopbat4211/30/2021History of diet controlled gestational diabetes mellitus (GDM)11/30/2021Family history of diabetes during wlnfixnqc79/21/2022reeclampsia in period ([facility])11/26/2021 Overview (05/17/2023): 11/29/21: Discharged home with Labetalol 600 QID and Procardia 90 XL qd. Pt has appt with Dr. Morales in [place] 11/30/21 for her PP appt. Pt has BP cuff at home already and would like to f/u with [facility] Analyst Programmer 12/09/21: Decreased to Labetalol 600 TID 12/26/21: Decreased to Procardia 90 XL qd. Iron deficiency nunfvj1612/29/2019Gastroesophageal reflux hpvjlei9512/15/2019 Seasonal allergic rhinitis due to kcghag2712/15/20191158Avtiiqg96/28/2019Anemia 06/26/20190121Bckespkvoy42/04/2019 Overview (05/17/2023): Started on Celexa Gestational diabetes mellitus (GDM) ([facility])12/09/20183841Mdxzcg62/01/2019 Estimated Date of IdwmtcxwXbvpqzimUkc24/06/2026Based on last menstrual period of 01/09/2025 Encounters DateTypeDepartmentCare HgsfXwwluzotbxq51/23/2025Clinisync Result Encounter NOMS External Department Unsolicited Gonzalez Morales DO 08/26/2025 11:20 AM ESTRoutine [facility] [address] [place] [address] [place] [address] Winter English PA Third trimester ([facility]); 32 weeks gestation of ([facility]); History of diet controlled gestational diabetes mellitus (GDM); H/O gastric bypass; Preeclampsia in period ([facility]); History of pulmonary embolism; Gestational diabetes mellitus (GDM) in third trimester, gestational diabetes method of control unspecified ([facility])08/26/2025amboo flowsheet [facility] [address] [place] [address] Winter English PA 08/25/2025linisync Result Encounter NOMS External Department Unsolicited Gonzalez Morales, DO 08/25/2025bstract [facility] [place] [facility] [address] [place] [address] Gonzalez Morales, DO 08/12/2025Telephone [facility] [place] [facility] [address] [place] [address] Roseanne JonesARVADA, MA 08/11/2025 8:40 AM ESTRoutine [facility] [address] [address] Gonzalez Morales, 30 weeks gestation of ([facility]); Third trimester ([facility]); History of diet controlled gestational diabetes mellitus (GDM); Preeclampsia in period ([facility]); History of pulmonary embolism; Primary idaryglbrwmr17/02/2025amboo flowsheet [facility] [address] [place] [address] Gonzalez Morales, 08/10/2025Telephone [facility] [place] [facility] [address] [address] Roseanne Jones NE 07/30/2025 9:10 AM ESTRoutine [facility] [address] [address] Gonzalez Morales, 28 weeks gestation of ([facility]); Third trimester ([facility]); Pruritus; History of diet controlled gestational diabetes mellitus (GDM); Preeclampsia in period ([facility]); History of pulmonary embolism; Primary hypertension; History of /20/2025Bamboo flowsheet [facility] [place] [facility] [address] [place] [address] Gonzalez Morales, DO 07/10/2025bstract [facility] [place] [facility] [address] [phone] Gonzalez Morales, DO 07/10/2025bstract [facility] [address] [address] Gonzalez Morales, DO 07/08/2025 8:30 AM EDTRoutine [facility] [address] [place] [address] Winter English PA Second trimester ([facility]); 25 weeks gestation of ([facility]); Vvyqkpch81/29/2025linisync Result Encounter NOMS External Department Unsolicited Winter English PA 07/08/2025amboo flowsheet [facility] [place] [facility] [address] [place] [address] [place] [address] Winter English PA 5Clinisync Result Encounter NOMS External Department Unsolicited Gonzalez Morales, 07/01/2025linisync Result Encounter NOMS External Department Unsolicited Provider, Generic External Data 06/27/2025Refill [facility] [address] [place] [address] Gonzalez Morales, Pre-existing essential hypertension during , antepartum ([facility]); Primary hypertension; History of pulmonary hzaubnfi38/15/2025 1:40 PM EDTRoutine N[facility] [address] Winter English PA Gallstones and inflammation of gallbladder without obstruction (Primary Dx); Second trimester ([facility]); 23 weeks gestation of ([facility]); History of diet controlled gestational diabetes mellitus (GDM); Preeclampsia in period ([facility]); History of pulmonary embolism; Primary hypertension; Diabetes mellitus stfrkoyui45/14/2025Telephone [facility] [address] [place] [address] Gonzalez Morales DO 06/18/2025Orders Only [facility] [address] [place] [address] Leslye Chairez LPN 06/10/2025 8:50 AM EDTRoutine N[facility]S [address] [address] [place] [address] Nena Spicer NP 21 weeks gestation of ([facility]); Well woman exam; Second trimester ([facility]); Screen for STD (sexually transmitted disease); Well woman exam with routine gynecological exam; Diabetes mellitus screening; Iron deficiency anemia, unspecified iron deficiency anemia type06/10/2025 Clinisync Result Encounter NOMS External Department Unsolicited Nena Spicer NP 06/10/2025amboo flowsheet [facility] [address] [place] [address] Nena Spicer NP from Last 3 Months Immunizations ImmunizationAdministration DatesNext DueDTaP, Atvjpnxocek49/07/1999,10/23/1996, 01/17/1996,09/28/1995,03/28/1995HPV, Unsptmqogvpr21/29/2009,02/05/2009, 12/01/2008Hep A, ped/adol, 2 dose02/08/2012,02/05/2009,12/01/2008Hep B, Adolescent or Tflmrlspg61/09/1996,09/28/1995,03/28/1995HiB, unspecified 10/23/1996,01/17/1996,09/28/1995,03/28/1995Influenza, injectable, quadrivalent, preservative free08/11/2019Influenza, seasonal, puyyqwuowc53/01/2011MMR 01/14/1999,03/28/1995Meningococcal EEM0L6212/01/2008Polio, Ksohcjlzjsa16/07/1999, 01/17/1996,09/28/1995,03/28/1995Tdap12/01/2008 Family History Medical HistoryRelationNameCommentsDiabetesFatherHypertensionFatherMental illnessFatherCancerMaternal GrandmotherHypertensionMotherDiabetesPaternal GrandfatherCancerPaternal FoiasedxnzfSsodkhsaUtvnQwssjgAxgicgpnNyaphab7Acxmqtnq4 FatherAliveMaternal GrandmotherMotherAlivePaternal GrandfatherPaternal XeddqgosbmqOldzrf6Qcs6 Social History Tobacco UseTypesPacks/DayYears UsedDateSmoking Tobacco: NeverSmokeless Tobacco: Never Tobacco Cessation:Counseling Given: Not Answered Alcohol UseStandard Drinks/WeekCommentsNever0 (1 standard drink = 0.6 oz pure alcohol)Caffeine intake: 1-2 cups per day coffeeEstimated Date of HjjesdcqQntcwuvaVdy97/06/2026Based on last menstrual period of 01/09/2025Sex and Gender InformationValueDate RecordedSex Assigned at BirthNot on fileLegal Sex Hqhtko9411/22/2022 9:44 PM EDTGender IdentityNot on fileSexual OrientationNot on file Last Filed Vital Signs Vital SignReadingTime TakenCommentsBlood Bimaxlkk428/7008/26/2025 11:35 AM EST Nfjql212610/10/2024 3:32 PM ESTTemperature--Respiratory Hbbd335610/10/2024 3:32 PM ESTOxygen Usywzpaixt34%10/10/2024 3:32 PM ESTInhaled Oxygen Concentration-- Cwjkcx942 kg (236 lb)08/26/2025 11:35 AM SKGPrccpw165.9 cm (5' 1 )10/10/2024 3:32 PM ESTBody Mass Index44.59010/10/2024 3:32 PM EST Plan of Treatment DateTypeDepartmentCare Team (Latest Contact Info)Mxfvxbxljho29/31/2025 9:40 AM ESTRoutine [facility] [address] [place] [address] Nena Spicer, CLIENT EXPERIENCE ADMINISTRATOR [address] [place] [address] Health MaintenanceDue DateLast DoneCommentsPneumococcal Vaccine: Pediatrics (0 to 5 Years) and At-Risk Patients (6 to 64 Years) (1 of 2 - PCV)2013 Influenza Vaccine (#1)5110/12/2018, 07/11/2011HPV/Nxbbwa9306/07/2028 06/07/2023, 12/11/2017Cervical Cancer Olailalxl73/01/2028Pap Smear06/10/2028 06/10/2025 Goals GoalPatient Goal TypeAssociated ProblemsRecent ProgressPatient-Stated?Author Help patient manage antidepressant medication Care PlanPatient on antidepressant monitoring Riddhi Mcdonald MD Baseline PHQ-9 Care PlanBaseline PHQ-9Riddhi Lerma MD Procedures Procedure NamePriorityDate/TimeAssociated DiagnosisCommentsUS OB BPP W NON-ZYKLPD8209/01/2025 11:45 AM EST POCT URINALYSIS IKMBNHPPHcefjyu16/17/2025 11:37 AM EST Third trimester ([facility]) OB BPP W NON-HMRTEO1108/25/2025 12:15 PM EST POCT URINALYSIS AEKKTKZJPwjxmna71/02/2025 9:11 AM EST 30 weeks gestation of ([facility]) Third trimester ([facility]) History of diet controlled gestational diabetes mellitus (GDM) Preeclampsia in period ([facility]) History of pulmonary embolism Primary hypertension POCT URINALYSIS HIPHVMZFSpubdlv29/20/2025 9:11 AM EST 28 weeks gestation of ([facility]) Third trimester ([facility]) [facility] BILE ACIDS FRACT QNAZakhglk05/29/2025 9:40 AM EDT ALL HEPATITIS C RKCpzkhvn70/29/2025 9:40 AM EDT ALL THYROID STIM XPGMSGUNygmjbb93/29/2025 9:40 AM EDT HMHP LIVER POCWMSfwsmwu50/29/2025 9:40 AM EDT ALL CBC WITH AUTO XYZAIvxilau95/29/2025 9:40 AM EDT POCT URINALYSIS HWXUTVYTSgzernh19/29/2025 8:48 AM EDT 25 weeks gestation of ([facility]) FGNQPRNBIehdagn51/26/2025 8:00 PM EDT [facility] UA (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Jfgrhhs1007/05/2025 7:50 PM EDT ALL CBC WITH AUTO SJZGAytkkyt26/22/2025 9:21 AM EDT MLR HEMOGLOBIN D1SFbmoedc34/22/2025 9:21 AM EDT RECURRENT VAGINITIS (HTRX)Wxxgsog2506/10/2025 10:04 AM EDT POCT URINALYSIS YOMDAUOSZqgquef79/01/2025 9:14 AM EDT 21 weeks gestation of ([facility]) IGP,APTIMA HPV,AGE GDSHDqedifd64/01/2025 9:06 AM EDT PAP VLWJFLvteyjo00/01/2025 12:00 AM EDTTHINPREP PAP AND HPV MRNA E6/E7 W/RFL HPV 16,18/70Lpevyvs35/28/2023 4:13 PM EDT Well woman exam with routine gynecological exam from Last 3 Months or Most Recently Relevant to Health Maintenance Results * US OB BPP W NON-STRESS (09/01/2025 11:45 AM EST) Only the most recent of2 resultswithin the time period is included. Anatomical RegionLateralityModalityOtherSpecimen (Source)Anatomical Location / LateralityCollection Method / VolumeCollection TimeReceived Time09/01/2025 11:45 AM EST Narrative 09/01/2025 11:47 AM EST [facility] ?[address] ? [place] [address] ? Ultrasound Report ? Signed ? Patient: TARA,SHIRA L ? MR#: [id number] ?? : 1995 ?Acct:[id number] ?? Age/Sex: 30 / F ?ADM Date: 09/01/25 ?? Loc: [facility] ??256-1 ? Attending Dr: Gonzalez Morales D.O. ? Ordering Physician: Gonzalez Morales D.O. ?? Date of Service: 09/01/25 ?? Procedure(s): US OB BPP w non-stress ?? Accession Number(s): [id number] ? cc: RIDDHI PLATA ; Gonzalez Morales D.O. ? [facility] ? [address] ? [place] [address] ? Patient Name: ?? SHIRA JETT ? MRN: [facility]:[id number] ? date: 1995 ?Sex: F ?? Assigned Patient Location: US ?? Current Patient Location: US ?? Accession/Order Number: [id number] ?? Exam Date: 09/01/2025 ??11:05 ?Report Date: [...] Dictation Location: RADIO-PC-30 ? Electronically authenticated by: [id number] ??Y ?? Date: 09/01/2025 ??11:45 ? Dictated By: ?Lakshmi Harmon M.D. ? Signed By: ?12/23/25 1147 ? DD/ 1145 ? TD/TT: ? [employer] Courtesy Clerk: Procedure Note Radiology, Radiologist, - 09/01/2025 [place] [address] Ultrasound Report Signed Patient: SHIRA JETT LMR#: [id number] : 1995Acct:[id number] Age/Sex: 30 / FADM Date: 09/01/25 Loc: [facility] 256-[address]: Gonzalez Morales D.O. Ordering Physician: Gonzalez Morales D.O. Date of Service: 09/01/25 Procedure(s): US OB BPP w non-stress Accession Number(s): [id number] cc: RIDDHI PLATA ; Gonzalez Morales D.O. The [place] [address] Patient Name: SHIRA JETT MRN: [facility]:[id number] date: 1995 Sex: F Assigned Patient Location: US Current Patient Location: US Accession/Order Number: [id number] Exam Date: 09/01/2025 11:05 Report Date: 09/01/2025 [...] Harmon M.D. 09/01/2025 11:45 AM Dictation Location: [place] [address] Electronically authenticated by: [id number] Y Date: 1:45 Dictated By: Lakshmi Harmon M.D. Signed By:09/01/25 1147 DD/ 1145 TD/TT: [employer] Courtesy Clerk: Authorizing ProviderResult TypeResult StatusCorey Carmen DOCLINISYNC IMAGINGFinal Result * (ABNORMAL) POCT urinalysis dipstick manually resulted [...] Location / LateralityCollection Method / VolumeCollection TimeReceived BgxzDmixm41/17/2025 11:37 AM EST Narrative Authorizing ProviderResult TypeResult StatusAmy [facility] TEST ENTER/EDIT ORDERABLESFinal Result * (ABNORMAL) [facility]IVER PANEL (07/08/2025 9:40 AM EDT)ComponentValueRef Range Test MethodAnalysis TimePerformed AtPathologist SignatureBILIRUBIN TOTAL0.20.2 - 1.0 mg/dLTBHBILIRUBIN DIRECT0.10.0 - 0.2 mg/dLTBHASPARTATE AMINO TRANSFERASE8(L)15 - 37 U/LTBHALANINE HOFIYDLKSXICHKEJ4026 - 59 U/LTBHALKALINE NJQHLUJBPKW2154 - 116 U/LTBHTOTAL PROTEIN6.66.4 - 8.2 g/dLTBHALBUMIN LEVEL2.9 (L)3.4 - 5.0 g/dLTBHGLOBULIN3.7g/dLTBHALBUMIN GLOBULIN RATIO0.8TBHSpecimen (Source)Anatomical Location / LateralityCollection Method / VolumeCollection TimeReceived Time07/08/2025 9:40 AM EDT1 9:52 AM EDT Narrative [facility] - 07/08/2025 11:42 AM EDT Authorizing ProviderResult TypeResult StatusAmy Amador PACLINISYNCFinal Result Performing OrganizationAddressCity/State/ZIP CodePhone Number [facility] * [facility] BILE ACIDS FRACT BLD (07/08/2025 9:40 AM EDT)ComponentValueRef RangeTest MethodAnalysis TimePerformed AtPathologist SignatureBILE ACIDS9.20.0 - 10.0 umol/LTBHComment: Performed at: ??BN - [facility] [address] ??[id number] Maintainer [employer]: Alexis Carrizales MD, Phone: ??[phone] Specimen (Source)Anatomical Location / LateralityCollection Method / Volume Collection TimeReceived Time07/08/2025 9:40 AM EDT1 9:52 AM EDT Narrative [facility] - 07/10/2025 7:08 AM EDT Authorizing ProviderResult TypeResult StatusAmy Amador PACLINISYNCFinal Result Performing OrganizationAddressCity/[facility]/ZIP CodePhone Number [facility] * ALL THYROID STIM HORMONE (07/08/2025 9:40 AM EDT)ComponentValueRef RangeTest MethodAnalysis TimePerformed AtPathologist SignatureTHYROID STIMULATING HORMONE2.1800.358 - 3.740 uIU/mLTBHSpecimen (Source)Anatomical Location / LateralityCollection Method / VolumeCollection TimeReceived Time07/08/2025 9:40 AM EDT1 9:52 AM EDT Narrative [facility] - 07/08/2025 11:42 AM EDT Authorizing ProviderResult TypeResult StatusAmy Amador PACLINISYNCFinal Result Performing OrganizationAddressCity/State/ZIP CodePhone Number [facility] * ALL HEPATITIS C AB (07/08/2025 9:40 AM EDT)ComponentValueRef RangeTest Method Analysis TimePerformed AtPathologist SignatureHCV ANTIBODYNon ReactiveNon ReactiveTBHComment: HCV antibody alone does not differentiate between previously resolved infection and active infection. Equivocal and Reactive HCV antibody results should be followed up with an HCV RNA test to support the diagnosis of active HCV infection. Performed at: ??CB - [facility] [address] ??[id number] Maintainer [employer]: Sedrick Snider PhD, Phone: ??[phone] Specimen (Source)Anatomical Location / LateralityCollection Method / Volume Collection TimeReceived Time07/08/2025 9:40 AM EDT1 9:52 AM EDT Narrative [facility] - 07/09/2025 4:07 AM EDT Authorizing ProviderResult TypeResult StatusAmy Amador PACLINISYNCFinal Result Performing OrganizationAddressCity/State/ZIP CodePhone Number [facility] * (ABNORMAL) ALL CBC WITH AUTO [...] - 35.2 g/dLTBHTBH RDW13.211.0 - 15.0 %TBHTBH [id number] - 450 10 3/uLTBHTBH MPV9.99.5 - 13.5 [...] Amador PACLINISYNCFinal Result Performing OrganizationAddressCity/State/ZIP CodePhone Number [facility] * AMNISURE (07/05/2025 8:00 PM EDT)ComponentValueRef RangeTest MethodAnalysis TimePerformed AtPathologist SignatureTBH AMNISURENEGATIVENEGATIVETBHSpecimen (Source)Anatomical Location / LateralityCollection Method / VolumeCollection TimeReceived Time07/05/2025 8:00 PM EDT1 8:21 PM EDT Narrative [facility] - 07/05/2025 8:27 PM EDT Authorizing ProviderResult TypeResult StatusValejyoti Blood CNMLAB BLOOD ORDERABLESFinal ResultPerforming OrganizationAddressCity/State/ZIP CodePhone Number [facility] * (ABNORMAL) [facility] UA (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 (07/05/2025 7:50 PM EDT) ComponentValueRef RangeTest MethodAnalysis TimePerformed AtPathologist SignatureCOLOR URINEYELLOWYELLOWTBHCLARITY URINECLEARCLEARTBHSPECIFIC GRAVITY URINE1.0201.005 - 1.025TBHPH URINE6.05.0 - 9.0TBHPROTEIN URINENEGATIVE NEG/TRACE mg/dLTBHGLUCOSE URINE UANEGATIVENEGATIVE mg/dLTBHBILIRUBIN URINE NEGATIVENEGATIVETBHKETONES URINETRACE(A)NEGATIVE mg/dLTBHBLOOD URINENEGATIVE NEGATIVETBHNITRITE URINENEGATIVENEGATIVETBHUROBILINOGEN URINE2.0(A)0.2 - 1.0 EU/dLTBHLEUKOCYTE ESTERASE URINENEGATIVENEGATIVETBHURINE MICROSCOPIC INDICATED NOTBHSpecimen (Source)Anatomical Location / LateralityCollection Method / VolumeCollection TimeReceived Time07/05/2025 7:50 PM EDT1 8:17 PM EDT Narrative [facility] - 07/05/2025 8:22 PM EDT Authorizing ProviderResult TypeResult StatusCorey Carmen DOCLINISYNCFinal Result Performing OrganizationAddressCity/State/ZIP CodePhone Number [facility] * MLR HEMOGLOBIN A1C (07/01/2025 9:21 AM EDT)ComponentValueRef RangeTest Method Analysis TimePerformed AtPathologist SignatureGLYCOHEMOGLOBIN A1C4.84.5 - 6.2 %TBHComment: ADA RECOMMENDED LIMIT 4.0 - 6.0 ADA THERAPEUTIC TARGET < 7.0 ACTION SUGGESTED > 7.0 ESTIMATED AVERAGE AVETLKJ39pp/dLTBHSpecimen (Source)Anatomical Location / LateralityCollection Method / VolumeCollection TimeReceived Time07/01/2025 9:21 AM EDT1 9:38 AM EDT Narrative [facility] - 07/01/2025 9:54 AM EDT Authorizing ProviderResult TypeResult StatusGeneric External Data Provider CLINISYNCFinal ResultPerforming OrganizationAddressCity/State/ZIP CodePhone Number [facility] * RECURRENT VAGINITIS (HTRX) (06/10/2025 10:04 AM EDT)ComponentValueRef Range Test MethodAnalysis TimePerformed AtPathologist SignatureATOPOBIUM VAGINAE0 19.961 - 24.689 ppm06/11/2025 6:30 AM EDTHealthTrackRx at [facility] HospitalATOPOBIUM VAGINAENot Clpqhvrd51.961 - 24.689 ppm06/11/2025 6:30 AM EDTHealthTrackRx at [facility] HospitalBVAB 2,3 (BACTERIAL VAGINOSIS ASSOCIATED BACTERIA 2, 3); MOBILUNCUS SPP 019.961 - 24.689 ppm06/11/2025 6:30 AM EDTHealthTrackRx at [facility] HospitalBVAB 2,3 (BACTERIAL VAGINOSIS ASSOCIATED BACTERIA 2, 3); MOBILUNCUS SPPNot Detected 19.961 - 24.689 ppm06/11/2025 6:30 AM EDTHealthTrackRx at [facility] HospitalCANDIDA ALBICANS, PARAPSILOSIS, RCIBURXCWC311.000 - 30.347 ppm06/11/2025 6:30 AM EDT [facility] HospitalCANDIDA ALBICANS, PARAPSILOSIS, TROPICALISNot Detected 23.000 - 30.347 ppm06/11/2025 6:30 AM EDTHealthTrackRx at [facility] HospitalCANDIDA TPZPSSFS308.000 - 31.618 ppm06/11/2025 6:30 AM EDTHealthTrackRx at [facility] YUAN GLABRATANot Cszhllpx34.000 - 31.618 ppm06/11/2025 6:30 AM EDT [facility] HospitalCANDIDA ONSMNN609.000 - 30.873 ppm06/11/2025 6:30 AM EDTHealthTrackRx at [facility] HospitalCANDIDA KRUSEINot Qtbitupd08.000 - 30.873 ppm 06/11/2025 6:30 AM EDTHealthTrackRx at [facility] HospitalCHLAMYDIA JUEETOCZMAS328.000 - 31.586 ppm06/11/2025 6:30 AM EDTHealthTrackRx at [facility] HospitalCHLAMYDIA TRACHOMATIS Not Jomkzglx94.000 - 31.586 ppm06/11/2025 6:30 AM EDTHealthTrackRx at [facility] GARDNERELLA NIYJLWROC915.961 - 24.689 ppm06/11/2025 6:30 AM EDTHealthTrackRx at [facility] HospitalGARDNERELLA VAGINALISNot Sbqygzzj06.961 - 24.689 ppm06/11/2025 6:30 AM EDTHealthTrackRx at [facility] HospitalMEGASPHAERA (TYPES 1, 2)019.961 - 24.689 ppm 06/11/2025 6:30 AM EDTHealthTrackRx at [facility] HospitalMEGASPHAERA (TYPES 1, 2)Not Tgocaymf00.961 - 24.689 ppm06/11/2025 6:30 AM EDTHealthTrackRx at [facility] NEISSERIA EVUVLGZAQDB624.000 - 32.587 ppm06/11/2025 6:30 AM EDTHealthTrackRx at [facility] HospitalNEISSERIA GONORRHOEAENot Uzmhwcnp37.000 - 32.587 ppm06/11/2025 6:30 AM EDTHealthTrackRx at [facility] HospitalTRICHOMONAS NZSPWZPZG846.000 - 31.995 ppm 06/11/2025 6:30 AM EDTHealthTrackRx at [facility] HospitalTRICHOMONAS VAGINALISNot Zqihdqvr66.000 - 31.995 ppm06/11/2025 6:30 AM EDTHealthTrackRx at [facility] MYCOPLASMA XBQFQLITDX249.961 - 24.689 ppm06/11/2025 6:30 AM EDTHealthTrackRx at [facility] HospitalMYCOPLASMA GENITALIUMNot Lqtolsjt25.961 - 24.689 ppm06/11/2025 6:30 AM EDTHealthTrackRx at [facility] HospitalSpecimen (Source)Anatomical Location / LateralityCollection Method / VolumeCollection TimeReceived TimeTissue 06/10/2025 10:04 AM EDT1 1:43 AM EDT Narrative Authorizing ProviderResult TypeResult StatusKrconstantin Spicer NPLAB BLOOD ORDERABLESFinal ResultPerforming OrganizationAddressCity/State/ZIP CodePhone Number [facility] [address] [address] * IGP,APTIMA HPV,AGE GDLN (06/10/2025 9:06 AM [...] at: 01 =G ?[facility] [address] [place] ??[phone] ?? Flores Rodgers MD, IGP, APTIMA HPV, RFX 16/18,45Note.TBHComment: ?? TESTS ? RESULT ??FLAG ??UNITS ?REF RANGE ??LAB DIAGNOSIS: ?02 ?? NEGATIVE FOR INTRAEPITHELIAL LESION OR MALIGNANCY. Specimen adequacy: ?02 ?? Satisfactory for evaluation. No endocervical component is identified. Performed by: ? 02 ?? Jorge Whittington Food Beverage Attendant (ASCP) . ? 02 Note: ? Note [...] High,A-Abnormal,AA-Critical Abnormal Performed at: [address] ?[facility] ?? [address], [place] ??[id number] ?? Flores Rodgers MD, HPV APTIMANegativeNegativeTBHComment: This nucleic acid amplification test detects fourteen high- risk HPV types (16,18,31,33,35,39,45,51,52,56,58,59,66,68) without differentiation. Performed at: ??=G - [facility] [address] ??[id number] [employer]: Flores Rodgers MD, Phone: ??[phone] Performed at: ?? - [facility] [address] ??[id number] [employer]: Flores Rodgers MD, Phone: ??[phone] Specimen (Source)Anatomical Location / LateralityCollection Method / [...] PM EDT) Narrative Authorizing ProviderResult TypeResult StatusAmy Meldrim PALAB BLOOD ORDERABLES Final ResultPerforming OrganizationAddressCity/State/ZIP CodePhone Number EXTERNAL LAB from Last 3 Months or Most Recently Relevant to Health Maintenance Additional Health Concerns Active ProblemsNoted DateDiagnosed DatePatient on antidepressant monitoring plan 02/01/2024aseline PHQ-9002/01/2024 [place] [address] Care Teams Team MemberRelationshipSpecialtyStart DateEnd Date Riddhi Plata MD [address] [place] [address] PCP - GeneralFamily Medicine01/16/23
--- OUTSIDE RECORDS SUMMARY | 2025-09-04 11:25 | XMS_ITS | Encounter Summary ---
Author Organization [employer] tem Address [id number] [address] [place] [address] Care Team Providers Care Attenuator Name Role Phone Riddhi Plata MD Primary Care Provider [phone] Encounter Details DateTypeDepartmentCare Team (Latest Contact Info)Ryrubltsvkb32/15/2025Travel Social History Tobacco UseTypesPacks/DayYears UsedDateSmoking Tobacco: NeverSmokeless Tobacco: NeverAlcohol UseStandard Drinks/WeekCommentsNot Currently0 (1 standard drink = 0.6 oz pure alcohol)socialAH UtilitiesAnswerDate RecordedIn the past 12 months has the [employer], gas, oil, or water [employer] threatened to shut off services in your [...] care, and heating?Not hard at all06/23/2025PHQ-2AnswerDate RecordedTotal Xmksx980/ PRAPARE - TransportationAnswerDate RecordedIn the past 12 [...] for you to work or study?No06/23/2025 EmploymentAnswerDate NjzueeqfGkynyvgktfHxdnlym71/06/2019Hunger ScreeningAnswer Date RecordedWithin the past 12 months we worried whether our food would run out before we got money to buy more.Never True06/23/2025Within the past 12 months the food we bought just didn't last and we didn't have money to get more.Never True06/23/2025Purpose - LifeAnswerDate RecordedPurpose and direction in life Skotfyj32/27/2021Estimated Date of FcpgwxgxDjtjkaufXbq90/06/2026Based on last menstrual period of 01/09/2025Sex and Gender InformationValueDate RecordedSex Assigned at VzsikMyygkb65/20/2022 9:31 PM ESTLegal IxbLozboq33/06/2015 11:49 AM EDTGender GhwofsxrFzuzyr82/20/2022 9:31 PM ESTSexual OrientationStraight 07/30/2022 9:31 PM ESTdocumented as of this encounter Plan of Treatment DateTypeDepartmentCare Team (Latest Contact Info)Qcrqicbpgnb34/29/2025 2:30 PM ESTTelemedicine Maternal- Medicine at [facility] [address] [place] [phone] Lara Looney, AMARILYS [address] [address] 09/08/2025 2:15 PM ESTAppointment [facility] - Ultrasound [address] [place] [address] 09/15/2025 8:30 AM ESTTelemedicine Maternal- Medicine at [facility] [address] [place] [address] Sana Lima MD [address] [facility] [place] [address] Dinah Jacobsen RN [address] [facility] [address] [facility] [place] [address] Stacy Aquino LD [address]ST [place] [address] 09/17/2025 10:15 AM ESTOffice Visit [facility] Physicians Pul[facility]Sleep Medicine [address] [place] [address] Jalyn Vidal, DO [address] [address] 09/22/2025 3:15 PM ESTAppointment [facility] - Ultrasound [address] [place] [address] documented as of this encounter Goals GoalPatient [...]
--- OUTSIDE RECORDS SUMMARY | 2025-09-04 11:25 | XMS_ITS | Encounter Summary ---
Author Organization [facility] Address [address] [place] [address] Care Team Providers Care Hedis Review Nurse Name Role Phone Riddhi Plata MD Primary Care Provider [phone] Encounter Details DateTypeDepartmentCare Team (Latest Contact Info)Yksokbbggjr08/16/2025bstract CHEVY TAYLOR [address] [place] [address] Bin Morales DO [address] [place] Nora [place], [facility]11 Social History Tobacco UseTypesPacks/DayYears UsedDateSmoking Tobacco: NeverSmokeless Tobacco: NeverAlcohol UseStandard Drinks/WeekCommentsNever0 (1 standard drink = 0.6 oz pure alcohol)Caffeine intake: 1-2 cups per day coffeeEstimated Date of DkzypwiqSispzizuUgt41/06/2026Based on last menstrual period of 01/09/2025Sex and Gender InformationValueDate RecordedSex Assigned at BirthNot on fileLegal Sex Xkvppe9211/22/2022 9:44 PM EDTGender IdentityNot on fileSexual OrientationNot on filedocumented as of this encounter Plan of Treatment DateTypeDepartmentCare Team (Latest Contact Info)Znzvtgbhqdt15/31/2025 9:[address] [place] [address] Nena Spicer, TENNIS RACKET REPAIRER [address] [place] [address] documented as of this encounter Goals [...] DateEnd Date Riddhi Plata MD [address] [place] [address] PCP - GeneralFamily Medicine01/16/23documented as of this encounter
--- OUTSIDE RECORDS SUMMARY | 2025-09-04 11:25 | XMS_ITS | Encounter Summary ---
Author Organization [employer] tem Address [facility][id number] [address] [place] [address] Care Team Providers Care Boat Builder Name Role Phone Riddhi Plata MD Primary Care Provider [phone] Reason for Referral * Consultation (Routine) - Pending ReviewSpecialtyDiagnoses / ProceduresReferred By ContactReferred To ContactMaternal and Medicine Diagnoses Insulin controlled gestational diabetes mellitus (GDM) in third trimester H/O gastric bypass Sana Lima MD [address] [place] [address] Phone: tel: fax: Maternal- Medicine at [facility] [address] [place] [address] Phone: tel: fax: Referral IDStatusReasonStart DateExpiration DateVisits RequestedVisits [id number] Review Specialty Services Required Encounter Details DateTypeDepartmentCare Team (Latest Contact Info)Irwtuxnyoin80/24/2025Orders Only Maternal- Medicine at [facility] [address] [place] [address] Stacy Aquino, TED [address] [facility] 1ST [place] [address] Insulin controlled gestational diabetes mellitus (GDM) in third trimester (Primary Dx); H/O gastric bypass Social History Tobacco UseTypesPacks/DayYears UsedDateSmoking Tobacco: NeverSmokeless Tobacco: NeverAlcohol UseStandard Drinks/WeekCommentsNot Currently0 (1 standard drink = 0.6 oz pure alcohol)[facility] UtilitiesAnswerDate RecordedIn the past 12 months has the [employer], gas, oil, or water [facility] threatened to shut off services in your [...] care, and heating?Not hard at all06/23/2025PHQ-2AnswerDate RecordedTotal Yleve870 PRAPARE - TransportationAnswerDate RecordedIn the past 12 [...] part of a household?No06/23/2025hildcareAnswerDate RecordedDo problems getting director child development center make it difficult for you to work or study?No06/23/2025 EmploymentAnswerDate XlmneaakGegbtcbicgQjtmpbb60/06/2019Hunger ScreeningAnswer Date RecordedWithin the past 12 months we worried whether our food would run out before we got money to buy more.Never True06/23/2025Within the past 12 months the food we bought just didn't last and we didn't have money to get more.Never True06/23/2025Purpose - LifeAnswerDate RecordedPurpose and direction in life Uokgplk37/27/2021Estimated Date of FtlfgcmyMxqtpnweMiq00/06/2026Based on last menstrual period of 01/09/2025Sex and Gender InformationValueDate RecordedSex Assigned at HlfvwGcavml86/20/2022 9:31 PM ESTLegal RghMkenwb56/06/2015 11:49 AM EDTGender ImagfiqzJjhxxx90/20/2022 9:31 PM ESTSexual OrientationStraight 07/30/2022 9:31 PM ESTdocumented as of this encounter Plan of Treatment DateTypeDepartmentCare Team (Latest Contact Info)Uhkidbebkoi58/29/2025 2:30 PM ESTTelemedicine Maternal- Medicine at [facility] [address] [place] [address] Lara Looney, PAPamelaC [address] [address] 09/08/2025 2:15 PM ESTAppointment [facility] - Ultrasound [address] [place] [address] 09/15/2025 8:30 AM ESTTelemedicine Maternal- Medicine at [facility] [address] [place] [address] Sana Lima MD [address] [place] [address] Dinah Jacobsen RN [address] [address] [place] Stacy Ramona, LD [address] [place] [address] 09/17/2025 10:15 AM ESTOffice Visit [facility] Physicians Pulmonary/Sleep Medicine [address] [facility] [place] [phone] Jalyn Vidal, DO [address] [address] 09/22/2025 3:15 PM ESTAppointment [facility] - Ultrasound [address] [place] [address] NameTypePriorityAssociated DiagnosesOrder ScheduleMaternal- Medicine at [facility] - Nutrition and Diabetes EducationOutpatient Referral Routine Insulin controlled gestational diabetes mellitus (GDM) in third trimester H/O gastric bypass 1 Occurrences starting 09/02/2025 until 09/02/2026documented as of this encounter Goals GoalPatient Goal TypeAssociated ProblemsRecent ProgressPatient-Stated?Author safe discharge to home Kate aMlave, RN Note: Evaluation of progress towards goal: safe transition from hospital to home with family support. documented as of this encounter Visit Diagnoses Diagnosis Insulin controlled gestational diabetes mellitus (GDM) in third trimester- Primary H/O gastric bypass documented in this encounter Additional Health Concerns AssessmentNoted TimePHQ-9 Depression Total Score: 3:05 PM EDT documented as of this encounter Care Teams Team MemberRelationshipSpecialtyStart DateEnd Date Riddhi Plata MD PCP - GeneralFamily Medicine12/09/23documented as of this encounter
--- OUTSIDE RECORDS SUMMARY | 2025-09-04 11:25 | XMS_ITS | Encounter Summary ---
Author Organization [facility] [email or web address] [facility] tem Address [facility] [place]-[id number] [address] [place] [address] Care Team Providers Care Incinerator Operator Name Role Phone Riddhi Plata MD Primary Care Provider [phone] Reason for Referral * Diagnostic Imaging (Routine) - Pending ReviewSpecialtyDiagnoses / Procedures Referred By ContactReferred To ContactMaternal and Medicine Diagnoses Poor growth affecting management of mother in third trimester, single or unspecified fetus Procedures US MFM with or without consult Sana Lima MD [address] [place] [address] Phone: tel: fax: Maternal- Medicine at [facility] [address] [place] [address] Phone: tel: fax: Referral IDStatusReasonStart DateExpiration DateVisits RequestedVisits [id number] Encounter Details DateTypeDepartmentCare Team (Latest Contact Info)Oupedfdlaet94/16/2025Orders Only Maternal- Medicine at [facility] [address] [place] [address] Josie Corona, RN Poor growth affecting management of mother in third trimester, single or unspecified fetus (Primary Dx) Social History Tobacco UseTypesPacks/DayYears UsedDateSmoking Tobacco: NeverSmokeless Tobacco: NeverAlcohol UseStandard Drinks/WeekCommentsNot Currently0 (1 standard drink = 0.6 oz pure alcohol)[facility] UtilitiesAnswerDate RecordedIn the past 12 months has the [employer], gas, oil, or water [employer] threatened to shut off services in your [...] care, and heating?Not hard at all06/23/2025PHQ-2AnswerDate RecordedTotal Sbjfk442 PRAPARE - TransportationAnswerDate RecordedIn the past 12 [...] of a household?No06/23/2025hildcareAnswerDate RecordedDo problems getting child life therapist make it difficult for you to work or study?No06/23/2025 EmploymentAnswerDate MknemdfjElwxvfnnopEprdlbq84/06/2019Hunger ScreeningAnswer Date RecordedWithin the past 12 months we worried whether our food would run out before we got money to buy more.Never True10/14/2025Within the past 12 months the food we bought just didn't last and we didn't have money to get more.Never True06/23/2025Purpose - LifeAnswerDate RecordedPurpose and direction in life Ojgvrnt38/27/2021Estimated Date of YhzhkqprVwsjftcvFkd22/06/2026Based on last menstrual period of 01/09/2025Sex and Gender InformationValueDate RecordedSex Assigned at NnqdrIvtkra06/20/2022 9:31 PM ESTLegal GnbJgnvdx59/06/2015 11:49 AM EDTGender JaluckmqQbpakf41/20/2022 9:31 PM ESTSexual OrientationStraight 07/30/2022 9:31 PM ESTdocumented as of this encounter Plan of Treatment DateTypeDepartmentCare Team (Latest Contact Info)Yixsddrmusg71/29/2025 2:30 PM ESTTelemedicine Maternal- Medicine at [facility] [address] [place] [address] Lara Looney, PAPamelaC [address] [address] 09/08/2025 2:15 PM ESTAppointment [facility] - Ultrasound [address] [place] [address] 09/15/2025 8:30 AM ESTTelemedicine Maternal- Medicine at [facility] [address] [place] [address] Sana Lima MD [address] [place] [address] Dinah Jacobsen RN [address] [facility] [address] [address] Stacy Aquino LD [address] [address] 09/17/2025 10:15 AM ESTOffice Visit [facility] Physicians Pulmonary/Sleep Medicine [address] [place] [address] Jalyn Vidal, DO [address] [address] 09/22/2025 3:15 PM ESTAppointment [facility] - Ultrasound [address] [place] [address] NameTypePriorityAssociated DiagnosesOrder ScheduleUS MFM with or without [...]
--- OUTSIDE RECORDS SUMMARY | 2025-09-04 11:25 | XMS_ITS | Encounter Summary ---
Author Organization [facility] tem Address [facility]-[id number] [address] [place] [address] Care Team Providers Care Technology Officer Name Role Phone Riddhi Plata MD Primary Care Provider [phone] Encounter Details DateTypeDepartmentCare Team (Latest Contact Info)Kpmhozjmbop64/24/2025Orders Only Maternal- Medicine at [facility] [address] [place] [address] Stacy Aquino, [address] [facility] 1ST [place] [address] Insulin controlled gestational diabetes mellitus (GDM) in third trimester (Primary Dx) Social History Tobacco UseTypesPacks/DayYears UsedDateSmoking [...] care, and heating?Not hard at all06/23/2025PHQ-2AnswerDate RecordedTotal Qbscp051 PRAPARE - TransportationAnswerDate RecordedIn the past 12 [...] household?No06/23/2025hildcareAnswerDate RecordedDo problems getting child care centre director make it difficult for you to work or study?No06/23/2025 EmploymentAnswerDate NaqshtoeBvxoduascqHulmivg95/06/2019Hunger ScreeningAnswer Date RecordedWithin the past 12 months we worried whether our food would run out before we got money to buy more.Never True06/23/2025Within the past 12 months the food we bought just didn't last and we didn't have money to get more.Never True06/23/2025Purpose - LifeAnswerDate RecordedPurpose and direction in life Dltjjdn97/27/2021Estimated Date of OtjjmkajDplrwhsuCfh24/06/2026Based on last menstrual period of 01/09/2025Sex and Gender InformationValueDate RecordedSex Assigned at SmucgOytpyq76/20/2022 9:31 PM ESTLegal MtaLsjjec59/06/2015 11:49 AM EDTGender EscyigvpTkineb42/20/2022 9:31 PM ESTSexual OrientationStraight 07/30/2022 9:31 PM ESTdocumented as of this encounter Plan of Treatment DateTypeDepartmentCare Team (Latest Contact Info)Ujrfyxjiixf38/29/2025 2:30 PM ESTTelemedicine Maternal- Medicine at [facility] [address] [place] [address] Lara Looney PA-C [address] [facility] [address] [address] 09/08/2025 2:15 PM ESTAppointment [facility] - Ultrasound [address] [place] [address] 09/15/2025 8:30 AM ESTTelemedicine Maternal- Medicine at [facility] [address] [facility] [place] [address] Sana Lima MD [address] [place] [address] Dinah Jacobsen RN [address] [facility], [address] [place] [address] Stacy Aquino LD [address] [facility] [address] [address] 09/17/2025 10:15 AM ESTOffice Visit [facility] Pul[facility]Sleep Medicine [address] [facility] [place] [address] [place] [address] [place] [phone] 09/22/2025 3:15 PM ESTAppointment [facility] - Ultrasound [address] [place] [address] documented as of this encounter Goals GoalPatient Goal TypeAssociated ProblemsRecent ProgressPatient-Stated?Author safe discharge to home Kate Malave, RN Note: Evaluation of progress towards goal: safe transition from hospital to home with family support. documented as of this encounter Visit Diagnoses Diagnosis Insulin controlled gestational diabetes mellitus (GDM) in third trimester- Primary documented in this encounter Additional Health Concerns AssessmentNoted TimePHQ-9 Depression Total Score: 3:05 PM EDT documented as of this encounter Care Teams Team MemberRelationshipSpecialtyStart DateEnd Date Riddhi Plata MD PCP - GeneralFamily Medicine12/09/23documented as of this encounter
--- OUTSIDE RECORDS SUMMARY | 2025-09-04 11:25 | XMS_ITS | Encounter Summary ---
Author Organization [facility] tem Address [id number] [address] [place] [address] Care Team Providers Care Stamp Pad Finisher Name Role Phone Riddhi Plata MD Primary Care Provider [phone] Encounter Details DateTypeDepartmentCare Team (Latest Contact Info)Yfubxgjpyeo06/24/2025Telephone Maternal- Medicine at [facility] [address] [place] [address] Stacy Aquino, [address] [facility] 1ST [place] [address] Social History Tobacco UseTypesPacks/DayYears UsedDateSmoking Tobacco: NeverSmokeless Tobacco: NeverAlcohol UseStandard Drinks/WeekCommentsNot Currently0 (1 standard drink = 0.6 oz pure alcohol)[facility] UtilitiesAnswerDate RecordedIn the past 12 months has the [employer], gas, oil, or water [employer] threatened to shut off services in your [...] care, and heating?Not hard at all06/23/2025PHQ-2AnswerDate RecordedTotal Dgnhi859 PRAPARE - TransportationAnswerDate RecordedIn the past 12 [...] a household?No06/23/2025hildcareAnswerDate RecordedDo problems getting early childhood lead teacher make it difficult for you to work or study?No06/23/2025 EmploymentAnswerDate AcqebspdNquhvkpqmuMdogsre02/06/2019Hunger ScreeningAnswer Date RecordedWithin the past 12 months we worried whether our food would run out before we got money to buy more.Never True06/23/2025Within the past 12 months the food we bought just didn't last and we didn't have money to get more.Never True06/23/2025Purpose - LifeAnswerDate RecordedPurpose and direction in life Xtpudsf56/27/2021Estimated Date of WanxynzmHhrvvnpkUwv89/06/2026Based on last menstrual period of 01/09/2025Sex and Gender InformationValueDate RecordedSex Assigned at UflcgKqpsdk04/20/2022 9:31 PM ESTLegal PidGoxtfb02/06/2015 11:49 AM EDTGender KvezqafmKkfoda90/20/2022 9:31 PM ESTSexual OrientationStraight 07/30/2022 9:31 PM ESTdocumented as of this encounter Miscellaneous Notes * Telephone Encounter - TED Kelley - 09/02/2025 9:57 AM EST Called patient and reached voicemail. I let patient know that Dr. Lima reviewed her Dexcom report and increased her before lunch Humalog to 3 units. She also would like patient to complete diabetes and nutrition education. Instructed patient to please call [phone], option 1, to schedulethis either in person or video visit. Will also send patient a [employer] message and asked patient tocontact us to let us know that she received her insulin change. documented in this encounter Plan of Treatment DateTypeDepartmentCare Team (Latest Contact Info)Likafjmzmlo94/29/2025 2:30 PM ESTTelemedicine Maternal- Medicine at [facility] [address] [place] [address] Lara Looney, PA-C [address] [address] 09/08/2025 2:15 PM ESTAppointment [facility] - Ultrasound [address] [place] [address] 09/15/2025 8:30 AM ESTTelemedicine Maternal- Medicine at [facility] [address] [place] [address] Sana Lima MD [address] [place] [address] Dinah Jacobsen RN [address] [address] Stacy Aquino LD [address] [phone] 09/17/2025 10:15 AM ESTOffice Visit [facility]Sleep [facility] [address] [place] [address] Jalyn Vidal, DO [address] [address] 09/22/2025 3:15 PM ESTAppointment [facility] - Ultrasound [address] [place] [address] documented as of this encounter [...]
--- OUTSIDE RECORDS SUMMARY | 2025-09-04 11:25 | XMS_ITS | Encounter Summary ---
Author Organization [facility] tem Address [id number] [place] [address] Care Team Providers Care Hvac Refrigeration Technician Name Role Phone Riddhi Plata MD Primary Care Provider [phone] Encounter Details DateTypeDepartmentCare Team (Latest Contact Info)Vaawignmtue07/16/2025Telephone Maternal- Medicine at [facility] [address] [facility] [place] [phone] Shayla Alex RN Social History Tobacco UseTypesPacks/DayYears UsedDateSmoking Tobacco: NeverSmokeless Tobacco: NeverAlcohol UseStandard Drinks/WeekCommentsNot Currently0 (1 standard drink = 0.6 oz pure alcohol)formerly [facility] UtilitiesAnswerDate RecordedIn the past 12 months has the [employer], gas, oil, or water [employer] threatened to shut off services in your [...] care, and heating?Not hard at all06/23/2025PHQ-2AnswerDate RecordedTotal Dceml768 PRAPARE - TransportationAnswerDate RecordedIn the past 12 [...] a household?No06/23/2025hildcareAnswerDate RecordedDo problems getting child care specialist make it difficult for you to work or study?No06/23/2025 EmploymentAnswerDate ZnocqbimCqggjjwjshVwdwjyx28/06/2019Hunger ScreeningAnswer Date RecordedWithin the past 12 months we worried whether our food would run out before we got money to buy more.Never True06/23/2025Within the past 12 months the food we bought just didn't last and we didn't have money to get more.Never True06/23/2025Purpose - LifeAnswerDate RecordedPurpose and direction in life Kdlvmnn45/27/2021Estimated Date of BmjdqscgFgamdddgTij70/06/2026Based on last menstrual period of 01/09/2025Sex and Gender InformationValueDate RecordedSex Assigned at WdggeTsjghw69/20/2022 9:31 PM ESTLegal QyvEdfzbx03/06/2015 11:49 AM EDTGender ApuozdoePwotlb03/20/2022 9:31 PM ESTSexual OrientationStraight 07/30/2022 9:31 PM [...] Plan of Treatment DateTypeDepartmentCare Team (Latest Contact Info)Aizetgzuhbj25/29/2025 2:30 PM ESTTelemedicine Maternal- Medicine at [facility] [address] [place] [address] Lara Looney PA-C [address] [address] 09/08/2025 2:15 PM ESTAppointment [facility] [address] [place] [phone] 09/15/2025 8:30 AM ESTTelemedicine Maternal- Medicine at [facility] [address] [place] [address] Sana Lima MD [address] [place] [address] Dinah Jacobsen RN [address] [address] Stacy Aquino LD [address] [address] 09/17/2025 10:15 AM ESTOffice Visit [facility] [address] [place] [phone] Jalyn Vidal, DO [address] [address] 09/22/2025 3:15 PM ESTAppointment [facility] [address] [place] [address] documented as of this encounter [...]
--- OUTSIDE RECORDS SUMMARY | 2025-09-04 11:25 | XMS_ITS | Clinical Summary ---
Author Organization [employer] tem Address [id number] [address] [place] [address] Care Team Providers Care Utilization Management Manager Name Role Phone Riddhi Plata MD Primary Care Provider [phone] Allergies Active AllergyReactionsCriticalityNoted DateCommentsSumatriptanAnaphylaxis,Other (See Comments)High11/28/2018 IMITREX [...] supported by her insurance 100 strip 5Active pen needle, diabetic (BD ULTRA-FINE RENATA PEN NEEDLE) 32 gauge x 5/32 needle Use a new needle with each injection ( 3 to 5 times per day) 100 each tive blood-glucose sensor (DEXCOM G7 SENSOR) device Indications:Severe obesity due to excess calories affecting in second trimester ([facility]),Hx of gastric bypass1 Device by miscellaneous route every 10 days for 30 days. 3 each /6Active insulin lispro (HumaLOG) 100 unit/mL insulin pen Indications:H/O gastric bypassPrime with 2 units then inject 2 units before breakfast, 2 units before lunch and 2 units before dinner 15 mL tive blood-glucose meter [facility] [place] Indications:Insulin controlled gestational diabetes mellitus (GDM) in third trimesterUse as directed to check blood sugar four times per day: fasting, and 1 hour after the start of each meal. Dispense per insurance 1 each 09/02/2025tive blood sugar diagnostic strip Indications:Insulin controlled gestational diabetes mellitus (GDM) in third trimesterCheck fingersticks 4 times daily, fasting and 1 hour after the start of a meal 100 strip tive lancets 33 gauge [facility] [place] Indications:Insulin controlled gestational diabetes mellitus (GDM) in third trimesterChange with each blood sugar check. Check fingersticks 4 times daily, fasting and 1 hour after the start of a meal. Use as directed. Dispense per insurance. 100 each tive blood sugar diagnostic strip Indications:Pre-diabetes,20 weeks gestation of ,History of gestational diabetes in prior , currently Check fingersticks 4 times daily, fasting and 1 hour after the start of a meal 100 strip /20240911/Discontinued blood-glucose sensor (DEXCOM G7 SENSOR) device Indications:Severe obesity due to excess calories affecting in second trimester ([facility]),Hx of gastric bypass1 Device by miscellaneous route every 21 days for 30 days. 3 each Discontinued(Reorder) insulin lispro (HumaLOG) 100 unit/mL insulin pen Prime with 2 units then inject 2 units before breakfast, 2 units before lunch and 2 units before dinner 15 mL Discontinued insulin lispro (HumaLOG) 100 unit/mL insulin pen Prime with 2 units then inject 2 units before breakfast, 3 units before lunch and 2 units before dinner 15 mL 5111/03/2024Discontinued Active Problems ProblemNoted DateDiagnosed DateH/O gastric xcyqie4312/30/2024Postsurgical bpjoqiqzypkib56/22/2025Malnutrition following gastrointestinal plwubds5612/30/2024 Class 3 severe obesity with body mass index (BMI) of 60.0 to 69.9 in adult 04/23/2024OSA on CPAP02/22/2023History of pulmonary wbxvavgg25/08/2022Family history of bhessutaca25/08/6805Lliisg90/01/2019Estimated Date of SzqkycvxPsnqccpoXnb63/06/2026ased on last menstrual period of 01/09/2025 Resolved Problems ProblemNoted DateDiagnosed DateResolved DatePneumonia due to infectious organism, unspecified laterality, unspecified part of lung/ Gestational pfeobbte62reeclampsia, Encounters DateTypeDepartmentCare BxtlTgmztrkiqyj55/24/2025Orders Only Maternal- Medicine at [facility] [address] [place] [address] Stacy Aquino LD Insulin controlled gestational diabetes mellitus (GDM) in third trimester (Primary Dx)09/02/2025Telephone Maternal- Medicine at [facility] [address] [place] [address] Stacy Aquino LD 09/02/2025Orders Only Maternal- Medicine at [facility] [address] [place] [address] Tracy Kolb APRN-CNM H/O gastric bypass (Primary Dx)09/02/2025Telephone Maternal- Medicine at [facility] [address] [place] [address] Stacy Aquino LD 09/02/2025Orders Only Maternal- Medicine at [facility] [address] [place] [address] Stacy Aquino LD Insulin controlled gestational diabetes mellitus (GDM) in third trimester (Primary Dx); H/O gastric pgbutl9609/01/2025Orders Only [facility] - Labor [address] [place] [address] Sana Rowe MD 08/27/2025 2:30 PM ESTTelemedicine Maternal- Medicine at [facility] [address] [place] [address] Viky Romano APRN-DEREK Anxiety and depression (Primary Dx); History of pulmonary embolism; Mild intermittent asthma, unspecified whether complicated; Severe obesity due to excess calories affecting in second trimester ([facility]); Hx of gastric kaqemd1708/27/2025Telephone Maternal- Medicine at [facility] [address] [place] [address] Cristhian Taylor 08/25/2025Telephone Maternal- Medicine at [facility] [address] [place] [address] Shayla Alex RN 08/25/2025Orders Only Maternal- Medicine at [facility] [address] [place] [address] Josie Corona, LEANDRO Poor growth affecting management of mother in third trimester, single or unspecified fetus (Primary Dx)08/24/2025 2:26 PM EST - 08/24/2025 11:59 PM EST Hospital Encounter [facility] - [facility] US Imaging [address] [place] [address] Obesity in , antepartum; Intrauterine growth restriction affecting care of mother, unspecified trimester, not applicable or unspecified fetus Discharge Disposition: Home12/15/2025Orders Only Maternal- Medicine at [facility] [address] [place] [address] Sana Rowe MD Severe obesity due to excess calories affecting in second trimester ([facility]) (Primary Dx); Hx of gastric vlqtvp9208/24/20258273Jvjrxo24/08/2025 1:15 PM ESTSupport Visit Maternal- Medicine at [facility] [address] [facility] [place] [address] Class 3 severe obesity with body mass index (BMI) of 60.0 to 69.9 in adult, unspecified obesity type, unspecified whether serious comorbidity present ([facility]) (Primary Dx); Pre-diabetes; History of gestational diabetes in prior , currently ; History of Arlene-en-Y gastric bypass; Chronic hypertension affecting ; Malnutrition following gastrointestinal surgery; History of pulmonary embolism; H/O gastric juvrkq3908/17/2025 12:30 PM ESTOffice Visit Maternal- Medicine at [facility] [address] [facility] [place] [address] Sana Rowe MD 31 weeks gestation of (Primary Dx); Poor growth affecting management of mother in third trimester, single or unspecified fetus; H/O gastric bypass; History of pulmonary embolism; Chronic hypertension affecting drqnbincp71/08/2025 11:02 AM EST - 08/17/2025 11:59 PM ESTHospital Encounter [facility] - [facility] [address] [facility] [place] [address] Pre-diabetes; History of gestational diabetes in prior , currently ; History of Arlene-en-Y gastric bypass; Chronic hypertension affecting ; History of pre-eclampsia in prior , currently in second trimester Discharge Disposition: Home08/17/2025Documentation Maternal- Medicine at [facility] [address] [place] [address] Anne oPzo RN 08/17/2025Orders Only Maternal- Medicine at [facility] [address] [place] [address] Anne Pozo RN Pre-diabetes (Primary Dx); History of gestational diabetes in prior , currently ; History of Arlene-en-Y gastric bypass; Chronic hypertension affecting ; Malnutrition following gastrointestinal yjocisj9308/17/20250260Rxqsdx32/25/2025Refill [facility] General Surgery-Bariatric [address] [facility] [address] [place] [address] Moriah Lira PA-C History of Arlene-en-Y gastric bypass; Postsurgical malabsorption; Malnutrition following gastrointestinal surgery; B12 gaezzlwkar11/20/2025Refill [facility] General Surgery-Bariatric [address] [facility] [address] [place] [address] Moriah Lira PA-C History of Arlene-en-Y gastric bypass; Postsurgical malabsorption; Malnutrition following gastrointestinal surgery; B12 olkeyouidk65/07/2025Telephone [facility] Pulmonary/Sleep Medicine [address] [place] [address] [address] [place] [address] Lyla Butt RN 07/09/2025 11:30 AM EDTOffice Visit Maternal- Medicine at [facility] [address] [place] [address] Sana Rowe MD Pre-diabetes (Primary Dx); 20 weeks gestation of ; History of gestational diabetes in prior , currently zcccevls97/30/2025 9:45 AM EDT - 07/09/2025 11:59 PM EDTHospital Encounter [facility] [address] [place] [address] 20 weeks gestation of ; Chronic hypertension affecting ; History of pre-eclampsia in prior , currently in second trimester; History of gestational diabetes in prior , currently in second trimester; History of prediabetes; Bariatric surgery status complicating , second trimester; Severe obesity due to excess calories affecting , antepartum ([facility]); History of maternal pulmonary embolus; Obstructive sleep apnea; History of gestational diabetes in prior , currently ; Depression affecting ; Anxiety disorder affecting , antepartum Discharge Disposition: Home07/09/2025Orders Only Maternal- Medicine at [facility] [address] [place] [address] Anne Pozo RN Pre-diabetes (Primary Dx); History of gestational diabetes in prior , currently ; History of Arlene-en-Y gastric bypass; Chronic hypertension affecting ; History of pre-eclampsia in prior , currently in second vagwexnqp83/30/9699Nswsvo64/24/2025Telephone [facility] General Surgery-Bariatric [address] [facility] [address] [place] [address] Ken Manzo MD 06/25/2025Orders Only Maternal- Medicine at [address] [address] Winter Gibbons LPN History of gestational diabetes in prior , currently in second trimester (PrimaryDx); History of prediabetes; History of gestational diabetes in prior , currently qggmahfw72/14/2025 4:05 AM EDT - 06/23/2025 9:28 AM [facility] [address] [place] [address] Spencer Melendez DO Kovach, Corie L, MD Abdominal pain of multiple sites (Primary Dx) Discharge Disposition: Home06/23/20258880Rqqrri22/13/2025Telephone Maternal- Medicine at [place] [address] [place] [address] Winter Gibbons LPN 06/17/2025 10:39 AM EDT - 06/17/2025 12:10 PM [facility] [address] [place] [address] Jaswinder Melvin MD Symptomatic cholelithiasis (Primary Dx) Discharge Disposition: Home06/17/20256700Ziqisz92/08/2025Telephone Maternal- Medicine at [facility] [address] [place] [address] Winter Gibbons LPN 06/16/2025Refill [facility] General Surgery-Bariatric [address] [employer] [place] [address] Moriah Lira PA-C History of Arlene-en-Y gastric bypass; Postsurgical malabsorption; Malnutrition following gastrointestinal surgery; B12 kvjurbvdmj82/29/2025Orders Only Maternal- Medicine at [facility] [address] [place] [address] Maisha Pratt MD History of Arlene-en-Y gastric [...] (1 standard drink = 0.6 oz pure alcohol)socialLAKEHEALTH [facility] UtilitiesAnswerDate RecordedIn the past 12 [...] care, and heating?Not hard at all06/23/2025PHQ-2AnswerDate RecordedTotal Ifaay269RAPARE - TransportationAnswerDate RecordedIn the past 12 months, [...] of a household?No06/23/2025hildcareAnswerDate RecordedDo problems getting children's court magistrate make it difficult for you to work or study?No06/23/2025 EmploymentAnswerDate KrbgdyopMfgmlopuryNaouexk55/06/2019Hunger ScreeningAnswer Date RecordedWithin the past 12 months we worried whether our food would run out before we got money to buy more.Never True06/23/2025Within the past 12 months the food we bought just didn't last and we didn't have money to get more.Never True06/23/2025Purpose - LifeAnswerDate RecordedPurpose and direction in life Pmcmtxw15/27/2021Estimated Date of LdjbsszoSnenrsqaLbb83/06/2026Based on last menstrual period of 01/09/2025Sex and Gender InformationValueDate RecordedSex Assigned at VatdwCsnquc06/20/2022 9:31 PM ESTLegal OvqUputym36/06/2015 11:49 AM EDTGender HljuqynrSskrzv48/20/2022 9:31 PM ESTSexual OrientationStraight 07/30/2022 9:31 PM EST Last Filed Vital Signs Vital SignReadingTime TakenCommentsBlood Ninftayk565/7508/17/2025 2:16 PM EST done at office mdyefXaarf8057/08/2025 2:15 PM XAOVxlxmmsqryj65.8 ??C (98.2 ??F) 06/23/2025 7:07 AM EDTRespiratory Bdxe841410/18/2024 2:15 PM ESTOxygen Saturation 99%06/23/2025 5:39 AM EDTInhaled Oxygen Concentration--Apqnrt589.7 kg (235 lb 3.2 oz)07/09/2025 10:52 AM KYLPdyvhl111.9 cm (5' 0.98 )07/09/2025 10:52 AM EDT Body Mass Index44.4607/09/2025 10:52 AM EDT Plan of Treatment DateTypeDepartmentCare Team (Latest Contact Info)Xtwsifuitpg61/29/2025 2:30 PM ESTTelemedicine Maternal- Medicine at [facility] [address] [place] [address] Lara Looney PA-C [address] [place] [address] 09/08/2025 2:15 PM ESTAppointment [facility] - [facility]ound [address] [place] [address] 09/15/2025 8:30 AM ESTTelemedicine Maternal- Medicine at [facility] [address] [place] [address] Sana Rowe MD [address] [place] [address] Dinah Jacobsen RN 2 [facility], [address] [place] [address] [phone] Stacy Aquino LD 2 [facility] [address] [place] [address] 09/17/2025 10:[address] [facility] Pul[facility]/Sleep Medicine [address] [facility] [place] [address] Jalyn Vidal, DO [address] [address] 09/22/2025 3:15 PM ESTAppointment [facility] - Ultrasound [address] [place] [address] Health MaintenanceDue DateLast DoneCommentsDTaP,Tdap and Td Vaccines (7 - Td or Tdap), 01/14/1999, 10/23/1996, Additional history exists Depression Cwbcasels63/dult BMI Follow Up Plan05/01/2025 05/01/2024Influenza Xiwuqoy42, 07/11/2011RSV ( or age 60+ yrs) (1 - Risk 1-dose series)08/21/2025dult BMI Screening Tobacco Cbnemhfqi85Pap Smear06/10/2028 06/10/2025 Goals GoalPatient Goal TypeAssociated ProblemsRecent ProgressPatient-Stated?Author safe discharge to home Kate Malave, LEANDRO Note: Evaluation of progress towards goal: safe transition from hospital to home with family support. Medical Devices Not on file Procedures Procedure NamePriorityDate/TimeAssociated DiagnosisCommentsUS [facility] L[facility]D OB, 1 OR MORE XFHCKBtooeth18/15/2025 3:21 PM EST Obesity in , antepartum Intrauterine growth restriction affecting care of mother, unspecified trimester, not applicable or unspecified fetus NONSTRESS XZEHAtdbpcu38/12/2025 9:29 AM EST Pre-diabetes History of gestational diabetes in prior , currently History of Arlene-en-Y gastric bypass Chronic hypertension affecting Malnutrition following gastrointestinal surgery [email or web address] OB FOLLOW-UP, 1 IVGQOCpzgedi95/08/2025 12:46 PM EST Pre-diabetes History of gestational diabetes in prior , currently History of Arlene-en-Y gastric bypass Chronic hypertension affecting History of pre-eclampsia in prior , currently in second trimester [facility] [[email or web address]] OB FOLLOW-UP, 1 DZZCEVcwnkjm82/30/2025 11:17 AM EDT 20 weeks gestation of Chronic hypertension affecting History of pre-eclampsia in prior , currently in second trimester History of gestational diabetes in prior , currently in second trimester History of prediabetes Bariatric surgery status complicating , second trimester Severe obesity due to excess calories affecting , antepartum ([facility]) History of maternal pulmonary embolus Obstructive sleep apnea History of gestational diabetes in prior , currently Depression affecting Anxiety disorder affecting , antepartum CT CTA SYFRIIXGZ41/14/2025 8:40 AM EDT RBTOLEDHRXJLAC36/14/2025 5:20 AM EDT SJKHOACXXC53/14/2025 4:21 AM EDT COMPREHENSIVE METABOLIC JURNBHJUJ57/14/2025 4:21 AM EDT CBC WITH AUTO JTYMWSUVQXKEXPWE68/14/2025 4:21 AM EDT US ABDOMEN NYABUUIX76/08/2025 11:31 AM EDT ER EXTRA BRTRXAUTP37/08/2025 11:24 AM EDT POCT NURSING URINE MACROSCOPIC ONRnpvxgp68/08/2025 11:09 AM EDT EXTRA TUBES BLUE ZMSFtbzdat07/08/2025 11:04 AM EDT EXTRA IRTCRAvkstac12/08/2025 11:04 AM EDT COMPREHENSIVE METABOLIC FANVKLDYT50/08/2025 11:04 AM EDT QJTXLJUJGL32/08/2025 11:04 AM EDT CBC WITH AUTO QHZGBFSNISTJGTAW68/08/2025 11:04 AM EDT from Last 3 Months Results * US M[facility] LMTD OB, 1 OR MORE FETUS (08/24/2025 3:21 PM EST) Only the most recent of3 resultswithin the time period is included. Anatomical RegionLateralityModalityOB-GYNUltrasoundSpecimen (Source)Anatomical Location / LateralityCollection Method / VolumeCollection TimeReceived Time 08/24/2025 2:47 PM EST Narrative 08/24/2025 3:36 PM EST NAME: ??TRAA PERKINS : 1995 SEX: F Accession Number: [id number] ORDERING PHYSICIAN: SANA ROWE REFERRING PHYSICIAN: GONZALEZ PASCAL Coding Procedures ? 94805: Ultrasound, uterus, real time with image documentation, limited one or more fetuses ? 45751: Doppler velocimetry, ; umbilical artery Indication IUGR-Poor growth, Bariatric surgery complicating , Obesity in , history of PE , History of gestational hypertension , History of prior with gestational diabetes , Supervision of high risk , Obesity in . History OB History ? 3. Para 2 ? O1H3A1S7 Current Cell free DNA ?low risk analysis [...] MVP measures 5.3 cm. Recommendations Please see [facility] recommendations from prior clinical and/or ultrasound report documentation. The patient is scheduled in 2 week(s) for growth and Doppler. The patient is scheduled in 4 week(s) for Doppler and MVP. Subsequent follow up or other follow up as clinically determined by primary OB provider unless otherwise specified by [facility]. Results forwarded to ordering provider so they can follow up with the patient as necessary. Procedure Note Sana Rowe MD - 08/24/2025 NAME: TARA PERKINS : 1995 SEX: F Accession Number: [id number] ORDERING PHYSICIAN: SANA ROWE REFERRING PHYSICIAN: GONZALEZ PASCAL Coding Procedures 19701: Ultrasound, uterus, real time with image documentation, limited one or more fetuses 42030: Doppler velocimetry, ; umbilical artery Indication IUGR-Poor growth, Bariatric surgery complicating , Obesityin , history of PE , History of gestational hypertension , History of prior with gestationaldiabetes , Supervision of high risk , Obesity in . History OB History 3. Para 2 K5Q7N0G5 Current Cell free DNA low risk analysis Maternal Assessment Physical Exam Height 152 cm, 5 ft. Weight 107 kg, 235 lb. Initial ejbjfn274 kg, 239 lb. BMI 45.90 kg/m??. Initial [...] MVP measures 5.3 cm. Recommendations Please see [facility] recommendations from prior clinical and/or ultrasoundreport documentation. [...] as necessary. Authorizing ProviderResult TypeResult Marco Rowe MDIMG US ORDERABLESFinal Result * nonstress test - [...] Génesis Charles RN ?08/17/2025 ? Authorizing ProviderResult TypeLinda Rowe MDOB GYNE ORDERABLESFinal ResultPerforming OrganizationAddressCity/State/ZIP CodePhone Number [...] 06/23/2025 8:49 AM Authorizing ProviderResult TypeResult StatusCoribridget GARRIDOG CT ORDERABLES Final Result * Urinalysis (06/23/2025 5:20 AM EDT)ComponentValueRef RangeTest MethodAnalysis TimePerformed AtPathologist RlbbxtmyzRZJNLSswvutQxacla70/14/2025 6:36 AM EDT [facility] CAMPUSTURBIDITYClearClear06/23/2025 6:36 AM EDT [facility]ITALPECIFIC GRAVITY1.0201.003 - 1.035 06/23/2025 6:36 AM EDHOLZER [facility]ENTER – JACKSONNITRITENegative Twgkcxjz94/14/2025 6:36 AM [facility]PH,URINE6.0 5.0 - 8.510 6:36 AM [facility]ENTERLEUKOCYTE EHKQHTMWGhgzxvtpPdlprymb20/14/2025 6:36 AM [facility]ENTERPROTEINNegativeNegative06/23/2025 6:36 AM EDTPST. ANTHONY'S HOSPITALKETONES (URINE)KjggnwbdIbsycjiz50/14/2025 6:36 AM EDT [facility] CAMPUSUROBILINOGEN1.0 eu/dL0.2 eu/dL, 1.0 eu/dL 06/23/2025 6:36 AM EDHOLZER MEDICAL CENTER – JACKSONBILIRUBIN (URINE) TbnixlwvXyumbzhd17/14/2025 6:36 AM [facility] BLOOD/CDURvstqfalFixgqsko00/14/2025 6:36 AM [facility] CENTERGLUCOSE (URINE)NegativeNegative, 250 mg/dL06/23/2025 6:36 AM EDT [facility]ITALpecimen (Source)Anatomical Location / LateralityCollection Method / VolumeCollection TimeReceived TimeUrineUrine specimen collection, clean catch / Bvmobxs1806/23/2025 5:20 AM EDT1 6:32 AM EDT Narrative Authorizing ProviderResult TypeResult StatusCojyoti UNGER ORDERABLES Final ResultPerforming OrganizationAddressCity/State/ZIP CodePhone Number [facility] [address] [place] [address], * (ABNORMAL) CBC auto differential (06/23/2025 4:21 AM EDT) Only the most recent of2 resultswithin the time period is included. ComponentValueRef RangeTest MethodAnalysis TimePerformed AtPathologist Signature WBC9.74 - 11 x10E9/L1 4:49 AM EDTPST. ANTHONY'S HOSPITALRBC Count3.38(L)3.8 - 5.2 X10E12/L1 4:49 AM EDTPST. ANTHONY'S HOSPITALHemoglobin10.6(L)11.7 - 15.5 g/dL06/23/2025 4:49 AM EDHOLZER MEDICAL CENTER – JACKSONHematocrit29.9(L)35 - 47 %06/23/2025 4:49 AM EDHOLZER MEDICAL CENTER – JACKSONMCV8880 - 100 fL06/23/2025 4:49 AM EDTPST. ANTHONY'S HOSPITALMCH31.327 - 34 pg06/23/2025 4:49 AM EDTPST. ANTHONY'S HOSPITALMCHC35.332 - 36 g/dL06/23/2025 4:49 AM EDHOLZER MEDICAL CENTER – JACKSONRDW13.011.5 - 15 %06/23/2025 4:49 AM EDHOLZER MEDICAL CENTER – JACKSONPlatelet Lhatj841938 - 450 X10E9/L1 4:49 AM EDT [facility] CAMPUSMPV7.87 - 12 fL06/23/2025 4:49 AM EDT [facility]AMPUSNeutrophils %69.6%06/23/2025 4:49 AM EDT [facility] CAMPUSLymphocytes %24.9%06/23/2025 4:49 AM EDT [facility]AMPUSMonocytes %4.0%06/23/2025 4:49 AM EDT [facility] CAMPUSEosinophils %1.1%06/23/2025 4:49 AM EDT [facility]AMPUSBasophils %0.4%06/23/2025 4:49 AM EDT [facility] CAMPUSNeutrophils Absolute (A)6.8(H)1.5 - 6.6 10*3/uL06/23/2025 4:49 AM [facility] CENTERLymphocytes Absolute2.41.0 - 3.5 10*3/uL06/23/2025 4:49 AM EDTPST. ANTHONY'S HOSPITALMonocytes Absolute0.40.0 - 0.9 10*3/uL06/23/2025 4:49 AM EDHOLZER MEDICAL CENTER – JACKSONEosinophils Absolute0.10.0 - 0.4 10*3/uL06/23/2025 4:49 AM EDHOLZER MEDICAL CENTER – JACKSONBasophils Absolute0.00.0 - 0.2 10*3/uL 06/23/2025 4:49 AM [facility] CENTERDifferential Type AUTOMATED GZCHDFXNRZPD19/14/2025 4:49 AM [facility] Specimen (Source)Anatomical Location / LateralityCollection Method / Volume Collection TimeReceived TimeBloodVenous blood / UnknownVenipuncture / Unknown 06/23/2025 4:21 AM EDT1 4:44 AM EDT Narrative Authorizing ProviderResult TypeResult StatusJesse A [facility] BLOOD ORDERABLES Final ResultPerforming OrganizationAddressCity/State/ZIP CodePhone Number [facility] [address] [place] [address], * Lipase (06/23/2025 4:21 AM EDT) Only the most recent of2 resultswithin the time period is included. ComponentValueRef RangeTest MethodAnalysis TimePerformed AtPathologist Signature GFVWME0011 - 40 U/L1 5:02 AM [facility] Specimen (Source)Anatomical Location / LateralityCollection Method / Volume Collection TimeReceived TimeBloodVenous blood / UnknownVenipuncture / Unknown 06/23/2025 4:21 AM EDT1 4:44 AM EDT Narrative Authorizing ProviderResult TypeResult StatusJemanjula TRIPP BLOOD ORDERABLES Final ResultPerforming OrganizationAddressCity/State/ZIP CodePhone Number [facility] [address] [place] [address], * (ABNORMAL) Comprehensive metabolic panel (06/23/2025 4:21 AM EDT) Only the most recent of2 resultswithin the time period is included. ComponentValueRef RangeTest MethodAnalysis TimePerformed AtPathologist Signature [id number] - 146 mmol/L1 5:05 AM [facility]ENTERPOTASSIUM3.93.5 - 5.0 mmol/L1 5:05 AM [facility]ENTERCHLORIDE10898 - 109 mmol/L1 5:05 AM [facility] CENTERCARBON OAEUUZS23(L)22 - 32 mmol/L1 5:05 AM [facility]ENTERANION GAP85 - 15 mmol/L1 5:05 AM [facility]ENTERBLOOD UREA PVXUWMFK96 - 23 mg/dL06/23/2025 5:05 AM [facility]ENTERCREATININE0.440.40 - 1.00 mg/dL 06/23/2025 5:05 AM [facility]ENTERComment:METHOD TRACEABLE TO IDMS PHZSXXEMSVDGWZC7838 - 99 mg/dL06/23/2025 5:05 AM [facility]ENTERCALCIUM8.78.5 - 10.5 mg/dL06/23/2025 5:05 AM EDT [facility] CAMPUSTOTAL PROTEIN6.36.0 - 8.0 g/dL06/23/2025 5:05 AM [facility] CENTERALBUMIN3.1(L)3.2 - 5.3 g/dL06/23/2025 5:05 AM [facility] CENTERALKALINE FAYAGTAPNBJ5641 - 130 U/L 06/23/2025 5:05 AM [facility]ENTERAST11<=41 U/L1 5:05 AM [facility]ENTERALT16<=31 U/L1 5:05 AM [facility] CENTERBILIRUBIN,TOTAL0.50.3 - 1.2 mg/dL 06/23/2025 5:05 AM [facility] CENTEREGFR Non-Race Dependent >90>=60 ml/min/1.73sq.m1 5:05 AM [facility] Comment: eGFR not reported due to non-numeric value for Creatinine. Reported eGFR is based on the CKD-EPI 2020 equation that does not use a race coefficient. Specimen (Source)Anatomical Location / LateralityCollection Method / Volume Collection TimeReceived TimeBloodVenous blood / UnknownVenipuncture / Unknown 06/23/2025 4:21 AM EDT1 4:44 AM EDT Narrative Authorizing ProviderResult TypeResult StatusJesse Lou Melendez [facility] BLOOD ORDERABLES Final ResultPerforming OrganizationAddressCity/State/ZIP CodePhone Number [facility] [address] [place] [address], [place] * Ultrasound abdomen limited (06/17/2025 11:31 [...] AtPathologist SignatureExtra TubeAuto Resulted 06/17/2025 1:01 PM EDTPROMEDORCHARD HOSPITALpecimen (Source) Anatomical Location / LateralityCollection Method / VolumeCollection Time Received TimeUrineUrine / UnknownCollection / Ewayjoh1006/17/2025 11:24 AM EDT 06/17/2025 11:24 AM EDT Narrative Authorizing ProviderResult TypeResult StatusJaswinder Melvin MDURINE ORDERABLES Final ResultPerforming OrganizationAddressCity/State/ZIP CodePhone Number [facility] [address] [place] [address], [place] * POCT Nursing Urine Macroscopic UA (06/17/2025 11:09 AM EDT)ComponentValueRef RangeTest MethodAnalysis TimePerformed AtPathologist [facility] Urine Specific Gravity1.0251.010, 1.015, 1.020, 1.1476006/17/2025 11:10 AM EDT [facility] Urine Leukocyte EsteraseNegative Fxpxvhig60/08/2025 11:10 AM [facility] Urine LjtknypEkridateDrvwjbdw38/08/2025 11:10 AM [facility] Urine pH6.55.0, 6.0, 6.5, 7.0, 7.5, 8.0, 8.5, 5.510 11:10 AM [facility] Urine ProteinNegativeNegative 06/17/2025 11:10 AM [facility] Urine Glucose XftejosgHzdjzzvn22/08/2025 11:10 AM [facility] Urine MlbtpivYyfuhkglOiavndbv14/08/2025 11:10 AM [facility] Urine Urobilinogen2.0 E.U./dL06/17/2025 11:10 AM [facility] Urine UwcohejivWynjwxryTxrlhbll87/08/2025 11:10 AM [facility] Urine Blood/HGBNegativeNegative 06/17/2025 11:[address] [facility]pecimen (Source) Anatomical Location / LateralityCollection Method / VolumeCollection Time Received DkikAiocm21/08/2025 11:09 AM EDT1 11:10 AM EDT Narrative Authorizing ProviderResult TypeResult StatusJaswinder Melvin MDPOINT OF CARE TEST ORDERABLESFinal ResultPerforming OrganizationAddressCity/State/ZIP CodePhone Number [facility] [address] [place] [address], * Light Blue Top (06/17/2025 11:04 AM EDT)ComponentValueRef RangeTest Method Analysis TimePerformed AtPathologist SignatureExtra TubeAuto Resulted 06/17/2025 1:01 PM EDTPROMEDICA STANF[facility] MEDICAL CENTERpecimen (Source) Anatomical Location / LateralityCollection Method / VolumeCollection Time Received TimeBloodVenous blood / Jovjqhw4406/17/2025 11:04 AM EDT1 11:12 AM EDT Narrative Authorizing ProviderResult TypeResult StatusJaswinder Melvin MDLAB BLOOD ORDERABLES Final ResultPerforming OrganizationAddressCity/State/ZIP CodePhone Number [facility] [address] [place] [address], from Last 3 Months Insurance Advance Directives * Full Code (Latest Code Status on File) Date ActivatedDate VsclicsrwasKrqhohab18/14/2025 9:38 AM06/23/2025 11:46 AM * Full Code Date ActivatedDate InactivatedComments04/23/2024 11:06 AM04/24/2024 4:47 PM * Full Code Date ActivatedDate JqecucqzcqePxvyokgu94/20/2022 11:42 PM07/31/2022 2:48 PM * Full Code Date ActivatedDate InactivatedComments11/24/2018 10:44 PM11/27/2018 4:48 PM Care Teams Team MemberRelationshipSpecialtyStart DateEnd Date Riddhi Plata MD PCP - GeneralFamily Medicine12/09/23
--- OUTSIDE RECORDS SUMMARY | 2025-09-04 11:25 | XMS_ITS | Encounter Summary ---
Author Organization [facility] tem Address [id number] [address] [place] [address] Care Team Providers Care Farmworker Turkey Farm Name Role Phone Riddhi Plata MD Primary Care Provider [phone] Encounter Details DateTypeDepartmentCare Team (Latest Contact Info)Pbhdkrpdcch87/24/2025Telephone Maternal- Medicine at [facility] [address] [place] [phone] Stacy Aquino, [address] [facility] [address] [place] [phone] Social History Tobacco UseTypesPacks/DayYears UsedDateSmoking Tobacco: NeverSmokeless Tobacco: NeverAlcohol UseStandard Drinks/WeekCommentsNot Currently0 (1 standard drink = 0.6 oz pure alcohol)[facility] UtilitiesAnswerDate RecordedIn the past 12 months has the [employer], gas, oil, or water zoidu threatened to shut off services in your [...] care, and heating?Not hard at all06/23/2025PHQ-2AnswerDate RecordedTotal Bglar576 PRAPARE - TransportationAnswerDate RecordedIn the past 12 [...] household?No06/23/2025hildcareAnswerDate RecordedDo problems getting child and adolescent psychiatrist make it difficult for you to work or study?No06/23/2025 EmploymentAnswerDate ZkyriilwKnmamkvrowBuzcxhv78/06/2019Hunger ScreeningAnswer Date RecordedWithin the past 12 months we worried whether our food would run out before we got money to buy more.Never True06/23/2025Within the past 12 months the food we bought just didn't last and we didn't have money to get more.Never True06/23/2025Purpose - LifeAnswerDate RecordedPurpose and direction in life Uwixcxo46/27/2021Estimated Date of FcifrccqCgysezcsVfk59/06/2026Based on last menstrual period of 01/09/2025Sex and Gender InformationValueDate RecordedSex Assigned at ZfebcUoqcnn47/20/2022 9:31 PM ESTLegal KccDbrtvy09/06/2015 11:49 AM EDTGender NlolvqkrOzdzsq62/20/2022 9:31 PM ESTSexual OrientationStraight 07/30/2022 9:31 PM ESTdocumented as of this encounter Miscellaneous Notes * Telephone Encounter - TED Kelley - 09/02/2025 11:21 AM EST Talked to patient about her concerns about going up to 3 units at lunch. (She sent a [email or web address] message mentioning fear of taking Humalog if she was starting a meal at a sensor glucose of 65. She didn'ttake it at lunch yesterday and her glucose went up to 181 mg/dL). Explained to patient that she should do a fingerstick to verify when her Dexcom says a low or concerning reading. Patient states thatshe doesn't currently have a traditional meter and supplies. I will ask a M provider to order these to [facility] in [place]. Also explained that the purpose of meal insulin is to cover the carbs that she is about to eat so that her glucose will stay below a goal of 140 mg/dL. Patient expressed understanding of this and will start taking Humalog before each carb containing meal as ordered. Tracy Kolb CNM, changed her lunch dose back to 2 units to help patient feel confident that she will not go low. Answered patient's questions about how to treat a low. Patient has not been to diabetes education yet. I transferred her to our scheduling department to set up that appointment. We will print her Dexcom report again next Sunday. documented in this encounter Plan of Treatment DateTypeDepartmentCare Team (Latest Contact Info)Cscmvvfzrzr93/29/2025 2:30 PM ESTTelemedicine Maternal- Medicine at [facility] [address] [place] [phone] Lara Looney PA-C [address] [address] 09/08/2025 2:15 PM ESTAppointment [facility] [address] [place] [address] 09/15/2025 8:30 AM ESTTelemedicine Maternal- Medicine at [facility] [address] [place] [phone] Sana Lima MD [address] [place] [address] Dinah Jacobsen, RN [address] [place] [address] Stacy Aquino LD [address] [place] [address] 09/17/2025 10:15 AM ESTOffice Visit [facility] [address] [place] [phone] Jalyn Vidal, DO [address] [address] 09/22/2025 3:15 PM ESTAppointment [facility] [address] [place] [phone] documented as of this encounter Goals GoalPatient [...]
--- OUTSIDE RECORDS SUMMARY | 2025-09-04 11:25 | XMS_ITS | Encounter Summary ---
Author Organization [facility] tem Address [id number] [address] [place] [address] Care Team Providers Care Vp Platforms Name Role Phone Riddhi Plata MD Primary Care Provider [phone] Encounter Details DateTypeDepartmentCare Team (Latest Contact Info)Ciahbzoyjye41/23/2025Orders Only [facility] - Labor [address] [place] [phone] Sana Lima MD [address] [place] [address] Social History Tobacco UseTypesPacks/DayYears UsedDateSmoking Tobacco: NeverSmokeless Tobacco: NeverAlcohol UseStandard Drinks/WeekCommentsNot Currently0 (1 standard drink = 0.6 oz pure alcohol)[facility] UtilitiesAnswerDate RecordedIn the past 12 months has [...] care, and heating?Not hard at all06/23/2025PHQ-2AnswerDate RecordedTotal Mqkbb652 PRAPARE - TransportationAnswerDate RecordedIn the past 12 [...] part of a household?No06/23/2025hildcareAnswerDate RecordedDo problems getting childrens club attendant make it difficult for you to work or study?No06/23/2025 EmploymentAnswerDate DfxdfcaxThrhhohsrgPxttyay74/06/2019Hunger ScreeningAnswer Date RecordedWithin the past 12 months we worried whether our food would run out before we got money to buy more.Never True06/23/2025Within the past 12 months the food we bought just didn't last and we didn't have money to get more.Never True06/23/2025Purpose - LifeAnswerDate RecordedPurpose and direction in life Qfwnjwh52/27/2021Estimated Date of IrlomeusPvmbrluyJwo36/06/2026Based on last menstrual period of 01/09/2025Sex and Gender InformationValueDate RecordedSex Assigned at IvlvlZkyvvu28/20/2022 9:31 PM ESTLegal UhbNvgpll54/06/2015 11:49 AM EDTGender ZuxwayqjGeimyz01/20/2022 9:31 PM ESTSexual OrientationStraight 07/30/2022 9:31 PM ESTdocumented as of this encounter Plan of Treatment DateTypeDepartmentCare Team (Latest Contact Info)Byrgrpbupeo32/29/2025 2:30 PM ESTTelemedicine Maternal- Medicine at [facility] [address] [place] [address] Lara Looney PA-C [address] [place] [address] [place] [address] 09/08/2025 2:15 PM ESTAppointment [facility] - [facility]trasound [address] [place] [address] 09/15/2025 8:30 AM ESTTelemedicine Maternal- Medicine at [facility] [address] [place] [address] Sana Lima MD [address] [place] [address] Dinah Jacobsen RN [address], [address] [place] [address] Stacy Aquino LD [address] [place] [address] 09/17/2025 10:15 AM ESTOffice Visit [facility]Sleep Medicine [address] [place] [phone] Jalyn Vidal, DO [address] [address] 09/22/2025 3:15 PM ESTAppointment [facility] - [facility]trasound [address] [place] [address] documented as of this encounter [...]
--- OUTSIDE RECORDS SUMMARY | 2025-09-04 11:26 | XMS_ITS | Encounter Summary ---
Author Organization [facility] Address [address] [facility] [place] [address] Care Team Providers Care Embossing Toolsetter Name Role Phone Riddhi Plata MD Primary Care Provider [phone] Encounter Details DateTypeDepartmentCare Team (Latest Contact Info)Amyzpuiqlko59/17/2025amboo flowsheet CHEVY TAYLOR [address] [place] [address] Winter English PA [address] [place], [facility] Social History Tobacco UseTypesPacks/DayYears UsedDateSmoking Tobacco: NeverSmokeless Tobacco: NeverAlcohol UseStandard Drinks/WeekCommentsNever0 (1 standard drink = 0.6 oz pure alcohol)Caffeine intake: 1-2 cups per day coffeeEstimated Date of VmvkyhoiHxzcvoooEck51/06/2026Based on last menstrual period of 01/09/2025Sex and Gender InformationValueDate RecordedSex Assigned at BirthNot on fileLegal Sex Jeqtzn3811/22/2022 9:44 PM EDTGender IdentityNot on fileSexual OrientationNot on filedocumented as of this encounter Plan of Treatment DateTypeDepartmentCare Team (Latest Contact Info)Gysgqsosrkz22/31/2025 9:40 AM ESTRoutine NOMEl TAYLOR [address] [address] Nena Spicer, RONALD [address] [place] [address] documented as of this encounter Goals [...] DateEnd Date Riddhi Plata MD [address] [place] [address] PCP - GeneralFamily Medicine01/16/23documented as of this encounter
--- OUTSIDE RECORDS SUMMARY | 2025-09-04 11:26 | XMS_ITS | Encounter Summary ---
Author Organization [facility] Address [address] [facility] [place] [address] Care Team Providers Care Slice Plug Cutter Operator Name Role Phone Jesisca Mariscal MD Primary Care Provider [phone] Encounter Details DateTypeDepartmentCare Team (Latest Contact Info)Wzjupfcqmfg09/16/2025linisync Result Encounter [facility] External Department Unsolicited Gonzalez Morales DO [address] [facility] [place] [address] Social History Tobacco UseTypesPacks/DayYears UsedDateSmoking Tobacco: NeverSmokeless Tobacco: NeverAlcohol UseStandard Drinks/WeekCommentsNever0 (1 standard drink = 0.6 oz pure alcohol)Caffeine intake: 1-2 cups per day coffeeEstimated Date of NsaeylouSvxopuosYva69/06/2026ased on last menstrual period of 01/09/2025Sex and Gender InformationValueDate RecordedSex Assigned at BirthNot on fileLegal Sex Jrzywi0911/22/2022 9:44 PM EDTGender IdentityNot on fileSexual OrientationNot on filedocumented as of this encounter Plan of Treatment DateTypeDepartmentCare Team (Latest Contact Info)Igojlwdykbf20/31/2025 9:40 AM ESTRoutine [facility] Nichole TAYLOR [address] [place] [address] Nena Spicer, RONALD [address] [facility] [place] [address] documented as of this encounter Goals GoalPatient Goal TypeAssociated ProblemsRecent ProgressPatient-Stated?Author Help patient manage antidepressant medication Care PlanPatient on antidepressant monitoring Jessica Mcdonald MD Baseline PHQ-9 Care PlanBaseline PHQ-9Jessica Lerma MDdocumented as of this encounter Procedures Procedure NamePriorityDate/TimeAssociated DiagnosisCommentsUS OB BPP W NON-EUEPVY5808/25/2025 12:15 PM EST documented in this encounter Results * US OB BPP W NON-STRESS (08/25/2025 12:15 PM EST)Anatomical Region LateralityModalityOtherSpecimen (Source)Anatomical Location / Laterality Collection Method / VolumeCollection TimeReceived Time08/25/2025 12:15 PM EST Narrative 08/25/2025 12:18 PM EST [facility] ?[address] ? [place] [address] ? Ultrasound Report ? Signed ? Patient: SHIRA JETT L ? MR#: [id number] ?? : 1995 ?Acct:[id number] ?? Age/Sex: 30 / F ?ADM Date: 08/25/25 ?? Loc: US ? Attending Dr: Gonzalez Morales D.O. ? Ordering Physician: Gonzalez Morales D.O. ?? Date of Service: 08/25/25 ?? Procedure(s): US OB BPP w non-stress ?? Accession Number(s): [id number] ? cc: JESSICA MARISCAL ; Gonzalez Morales D.O. ? [facility] ? [address] ? [place] [address] ? Patient Name: ?? SHIRA JETT ? MRN: [id number] ? date: 1995 ?Sex: F ?? Assigned Patient Location: [facility]BC ?? Current Patient Location: ? Accession/Order Number: [id number] ?? Exam Date: 08/25/2025 ??11:00 ?Report Date: [...] Dictation Location: RADIO-PC-30 ? Electronically authenticated by: [id number] ??Y ?? Date: 08/25/2025 ??12:15 ? Dictated By: ?Lakshmi Harmon M.D. ? Signed By: ?12/16/25 1218 ? DD/ 1215 ? TD/TT: ? Boiler Tester: Procedure Note Radiology, Radiologist, MD - 08/25/2025 [place] [address] Ultrasound Report Signed Patient: SHIRA JETT LMR#: [id number] : 1995Acct:[id number] Age/Sex: 30 / FADM Date: 08/25/25 Loc: US Attending Dr: Gonzalez Morales D.O. Ordering Physician: Gonzalez Morales D.O. Date of Service: 08/25/25 Procedure(s): US OB BPP w non-stress Accession Number(s): [id number] cc: JESSICA MARISCAL ; Gonzalez Morales D.O. The [place] [id number] Patient Name: SHIRA JETT MRN: [id number] date: 1995 Sex: F Assigned Patient Location: [facility] Current Patient Location: Accession/Order Number: [id number] Exam Date: 08/25/2025 11:00 Report Date: 08/25/2025 [...] Harmon M.D. 08/25/2025 12:15 PM Dictation Location: 48domain Electronically authenticated by: [id number] Y Date: 2:15 Dictated By: Lakshmi Harmon M.D. Signed By:08/25/258 DD/ 14 TD/TT: Boiler Tester: Authorizing ProviderResult TypeResult StatusCorey Carmen DOCLINISYNC IMAGINGFinal Result documented in this encounter Visit Diagnoses Not on filedocumented in this encounter Additional Health Concerns Active ProblemsNoted DateDiagnosed DatePatient on antidepressant monitoring plan 4Baseline PHQ-904documented as of this encounter Care Teams Team MemberRelationshipSpecialtyStart DateEnd Date Jessica Mariscal MD [address] [place] [address] PCP - GeneralFamily Medicine01/16/23documented as of this encounter
[2025-09-04 11:36] VITALS: BP 85/47; PULSE 91
== END 2025-09-04 12:47 | disposition home or self-care (01) ==
LOC: FBCO 11:21 → FBC 11:24
PROVIDERS: PCP Family Medicine; Visit Provider Obstetrics & Gynecology
DX: O36.5930 Maternal care for other known or suspected poor fetal growth, third trimester, not applicable or unspecified (principal); Z3A.34 34 weeks gestation of pregnancy
CPT/HCPCS: 59025

== ENCOUNTER 2025-09-08 11:03 | Outpatient (OUT) | payer OTHER, SELFPAY ==
--- OUTSIDE RECORDS SUMMARY | 2025-08-24 14:26 | XMS_ITS | Encounter Summary ---
Author Organization [facility] Address [facility] [address] [place] [address] Care Team Providers Care Top Hat Body Maker Name Role Phone Riddhi Plata MD Primary Care Provider [phone] Reason for Referral * Diagnostic Imaging (Routine) - Pending ReviewSpecialtyDiagnoses / Procedures Referred By ContactReferred To ContactMaternal and Medicine Diagnoses Obesity in , antepartum Intrauterine growth restriction affecting care of mother, unspecified trimester, not applicable or unspecified fetus Procedures US [facility] with or without consult Sana Lima MD [address] [place] [address] Phone: tel: fax: Maternal- Medicine at [facility] [address] [place] [address] Phone: tel: fax: Referral IDStatusReasonStart DateExpiration DateVisits RequestedVisits [id number] Reason for Visit * Diagnostic Imaging (Routine) - Pending ReviewSpecialtyDiagnoses / Procedures Referred By ContactReferred To ContactMaternal and Medicine Diagnoses Obesity in , antepartum Intrauterine growth restriction affecting care of mother, unspecified trimester, not applicable or unspecified fetus Procedures US [facility] with or without consult Sana Lima MD [address] [place] [address] Phone: tel: fax: Maternal- Medicine at [facility] [address] [place] [address] Phone: tel: fax: Referral IDStatusReasonStart DateExpiration DateVisits RequestedVisits [id number] Encounter Details DateTypeDepartmentCare Team (Latest Contact Info)Jnwnmxlcayt07/15/2025 2:26 PM EST - 08/24/2025 11:59 PM ESTHospital Encounter [facility] - [facility] US Imaging [address] [place] [address] Obesity in , antepartum; Intrauterine growth restriction affecting care of mother, unspecified trimester, not applicable or unspecified fetus Discharge Disposition: Home Social History Tobacco UseTypesPacks/DayYears UsedDateSmoking Tobacco: NeverSmokeless Tobacco: NeverAlcohol UseStandard Drinks/WeekCommentsNot Currently0 (1 standard drink = 0.6 oz pure alcohol)[employer] UtilitiesAnswerDate RecordedIn the past 12 months has the [employer], [employer], or water [employer] threatened to shut off services in your [...] care, and heating?Not hard at all06/23/2025PHQ-2AnswerDate RecordedTotal Qwpbk299 PRAPARE - TransportationAnswerDate RecordedIn the past 12 [...] of a household?No06/23/2025hildcareAnswerDate RecordedDo problems getting child adolescent psychiatrist make it difficult for you to work or study?No06/23/2025 EmploymentAnswerDate WojiirbaFzdxoteyktZshvrsc08/06/2019Hunger ScreeningAnswer Date RecordedWithin the past 12 months we worried whether our food would run out before we got money to buy more.Never True06/23/2025Within the past 12 months the food we bought just didn't last and we didn't have money to get more.Never True06/23/2025Purpose - LifeAnswerDate RecordedPurpose and direction in life Mhybsvn40/27/2021Estimated Date of QsguuhnrJphhvohsNno74/06/2026Based on last menstrual period of 01/09/2025Sex and Gender InformationValueDate RecordedSex Assigned at BtyozGdqvxd37/20/2022 9:31 PM ESTLegal AobOmvjfy49/06/2015 11:49 AM EDTGender FuuxfoefEcotdx29/20/2022 9:31 PM ESTSexual OrientationStraight 07/30/2022 9:31 PM [...] to excess calories affecting in second trimester ([facility]),Hx of gastric bypass1 Device by miscellaneous route every 21 days for 30 days. 3 each /documented as of this encounter Plan of Treatment DateTypeDepartmentCare Team (Latest Contact Info)Jhfrwxbgejx20/30/2025 2:15 PM ESTHospital Encounter [facility] - Ultrasound [address] [place] [address] 09/15/2025 8:30 AM ESTTelemedicine Maternal- Medicine at [facility] [address] [place] [phone] Sana Lima MD [address] [place] [address] Dinah Jacobsen RN [address] [facility], [address] [place] [address] Stacy Aquino LD [address] [phone] 09/15/2025 11:00 AM ESTOffice Visit Maternal- Medicine at [facility] [address] [place] [phone] Lara Looney PA-C [address] [facility] [address] [place] [address] 09/17/2025 10:15 AM ESTOffice Visit [facility]Sleep Medicine [address] [place] [phone] Jalyn Vidal, DO [address] [id number] 09/22/2025 3:15 PM ESTAppointment [facility] - Ultrasound [address] [place] [address] documented as of this encounter Goals GoalPatient Goal TypeAssociated ProblemsRecent ProgressPatient-Stated?Author safe discharge to home Kate Malave RN Note: Evaluation of progress towards goal: safe transition from hospital to home with family support. documented as of this encounter Procedures Procedure NamePriorityDate/TimeAssociated DiagnosisCommentsUS MFM LMTD OB, 1 OR MORE MAQQIDxdskbn91/15/2025 3:21 PM EST Obesity in , antepartum [...] PERKINS : 1995 SEX: F Accession Number: [id number] ORDERING PHYSICIAN: SANA LIMA REFERRING PHYSICIAN: GONZALEZ PASCAL Coding Procedures ? 35737: Ultrasound, uterus, real time with image documentation, limited one or more fetuses ? 60252: Doppler velocimetry, ; umbilical artery Indication IUGR-Poor growth, Bariatric surgery complicating , Obesity in , history of PE , History of gestational hypertension , History of prior with gestational diabetes , Supervision of high risk , Obesity in . History OB History ? 3. Para 2 ? [id number] Current Cell free DNA ?low risk analysis [...] MVP measures 5.3 cm. Recommendations Please see [facility] recommendations from prior clinical and/or ultrasound [...] PERKINS : 1995 SEX: F Accession Number: [id number] ORDERING PHYSICIAN: SANA LIMA REFERRING PHYSICIAN: GONZALEZ PASCAL Coding Procedures 92316: Ultrasound, uterus, real time with image documentation, limited one or more fetuses 95706: Doppler velocimetry, ; umbilical artery Indication IUGR-Poor growth, Bariatric surgery complicating , Obesityin , history of PE , History of gestational hypertension , History of prior with gestationaldiabetes , Supervision of high risk , Obesity in . History OB History 3. Para 2 Y2D9T1L2 Current Cell free DNA low risk analysis Maternal Assessment Physical Exam Height 152 cm, 5 ft. Weight 107 kg, 235 lb. Initial lrccby978 kg, 239 lb. BMI 45.90 kg/m??. Initial [...] MVP measures 5.3 cm. Recommendations Please see [facility] recommendations from prior clinical and/or ultrasoundreport documentation. The patient is scheduled in 2 week(s) for growth and Doppler. The patient is scheduled in 4 week(s) for Doppler and MVP. Subsequent follow up or other follow up as clinically determined byprimary OB provider unless otherwise specified by [facility]. Results forwarded to ordering provider [...]
--- OUTSIDE RECORDS SUMMARY | 2025-08-26 11:20 | XMS_ITS | Encounter Summary ---
Author Organization [facility] Address [address] [place] [address] Care Team Providers Care Fire Alarm Operator Name Role Phone Riddhi Plata MD Primary Care Provider [phone] Reason for Visit * ReasonCommentsRoutine Visit Encounter Details DateTypeDepartmentCare Team (Latest Contact Info)Tayieiuflcu72/17/2025 11:20 AM ESTRoutine [facility] [address] [place] [address] Winter English PA [address] [place] [address] Third trimester ([facility]); 32 weeks gestation of ([facility]); History of diet controlled gestational diabetes mellitus (GDM); H/O gastric bypass; Preeclampsia in period ([facility]); History of pulmonary embolism; Gestational diabetes mellitus (GDM) in third trimester, gestational diabetes method of control unspecified ([facility]) Social History Tobacco UseTypesPacks/DayYears UsedDateSmoking Tobacco: NeverSmokeless Tobacco: NeverAlcohol UseStandard Drinks/WeekCommentsNever0 (1 standard drink = 0.6 oz pure alcohol)Caffeine intake: 1-2 cups per day coffeeEstimated Date of CicubingSwnajvuaKqo13/06/2026Based on last menstrual period of 01/09/2025Sex and Gender InformationValueDate RecordedSex Assigned at BirthNot on fileLegal Sex Hhaiig8711/22/2022 9:44 PM EDTGender IdentityNot on fileSexual OrientationNot on filedocumented as of this encounter Last Filed Vital Signs Vital SignReadingTime TakenCommentsBlood Ezpiwosu076/7012 11:35 AM EST Pulse--Temperature--Respiratory Rate--Oxygen Saturation--Inhaled Oxygen Concentration--Lrgdpx375 kg (236 lb)08/26/2025 11:35 AM ESTHeight--Body Mass [...] body mass index of 60.0-69.9 in adult ([facility]) 01/26/2023 Polycystic ovarian disease 01/26/2023 Primary hypertension 01/26/2023 Adjustment disorder with anxiety 11/30/2021 Amnesia 05/17/2023 Anxiety 07/07/2019 Anemia 06/26/2019 Depression 06/13/2019 Disorder of endocrine system 05/17/2023 Family history of diabetes during 11/28/2021 Family history of thrombosis 03/17/2022 Frequent headaches 05/17/2023 Gastroesophageal reflux disease 12/15/2019 Gestational diabetes mellitus (GDM) ([facility]) 12/09/2018 History of diet controlled gestational diabetes mellitus (GDM) 11/30/2021 Iron deficiency anemia 12/29/2019 Irregular periods 05/17/2023 Menorrhagia with regular cycle 05/17/2023 Asthma (HCC) 12/09/2018 Class 3 severe obesity due to excess calories with serious comorbidity and body mass index (BMI) of50.0 to 59.9 in adult ([facility]) 05/17/2023 Nausea and vomiting 05/17/2023 Pneumonia due to infectious organism 07/30/2022 Preeclampsia in period ([facility]) 11/26/2021 Acute pulmonary embolism ([facility]) 05/17/2023 Single subsegmental pulmonary embolism without acute cor pulmonale ([facility]) 05/17/2023 Seasonal allergic rhinitis due to pollen 12/15/2019 Thyroid nodule 05/17/2023 Urinary tract infection without hematuria 05/17/2023 LUCIANO on CPAP 02/22/2023 History of pulmonary embolism 03/17/2022 H/O gastric bypass 04/20/2025 Resolved Ambulatory Problems Diagnosis Date Noted No Resolved Ambulatory Problems Past Medical History: Diagnosis Date Acute memory impairment COVID 02/2020 Encounter for insertion of Mirena IUD GERD without esophagitis Gestational diabetes ([facility]) H/O blood clots H/O: hypertension High blood pressure History of being hospitalized Hormone imbalance Intrauterine device surveillance Irregular bleeding Morbid obesity with BMI of 50.0-59.9, adult ([facility]) Nausea Nausea with vomiting Pneumonia 07/30/2022 hypertension ([facility]) Pulmonary embolism ([facility]) 11/2021 Well woman exam HISTORY PAST MEDICAL HISTORY SOCIAL HISTORY Past Medical History: Diagnosis Date Acute memory impairment Anemia Asthma (HCC) COVID 02/2020 Depression Encounter for insertion of Mirena IUD Frequent headaches GERD without esophagitis Gestational diabetes ([facility]) H/O blood clots H/O gastric bypass H/O: hypertension High blood pressure History of being hospitalized Pt was re-admitted to [facility] for HTN (11/2021) , Pt had a baby (11/21/21) Hormone imbalance Intrauterine device surveillance Irregular bleeding Morbid obesity with BMI of 50.0-59.9, adult ([facility]) Nausea Nausea with vomiting Pneumonia 07/30/2022 hypertension ([facility]) Pulmonary embolism (HCC) 11/2021 Rt. ; [facility] [...] was 01/09/2025. Assessment/Plan ICD-10-CM 1. Third trimester ([facility]) Z34.93 2. 32 weeks gestation of ([facility]) Z3A.32 3. History of diet controlled gestational diabetes mellitus (GDM) Z86.32 4. H/O gastric bypass Z98.84 5. Preeclampsia in period ([facility]) O14.95 6. History of pulmonary embolism Z86.711 7. Gestational diabetes mellitus (GDM) in third trimester, gestational diabetes method of control unspecified ([facility]) O24.419 Assessment/Plan Return OB: Patient presents today [...] Plan of Treatment DateTypeDepartmentCare Team (Latest Contact Info)Clbfqbxqjsy47/31/2025 9:40 AM ESTRoutine [facility] [address] [place] [address] Nena Spicer NP [address] [place] [address] documented as of this encounter Goals GoalPatient Goal TypeAssociated ProblemsRecent ProgressPatient-Stated?Author Help patient manage antidepressant medication Care PlanPatient on antidepressant monitoring Riddhi Mcdonald MD Baseline PHQ-9 Care PlanBaseline PHQ-9Riddhi Lerma MDdocumented as of this encounter Procedures Procedure NamePriorityDate/TimeAssociated DiagnosisCommentsPOCT URINALYSIS OJXFCBLZYgkahog32/17/2025 11:37 AM EST Third trimester ([facility]) documented in this encounter Results * (ABNORMAL) [...] / LateralityCollection Method / VolumeCollection Time Received AzmvIcynd69/17/2025 11:37 AM EST Narrative Authorizing ProviderResult TypeResult Status[facility] TEST ENTER/EDIT ORDERABLESFinal Result documented in this encounter Visit Diagnoses Diagnosis Third trimester ([facility]) state, incidental 32 weeks gestation of ([facility]) History of diet controlled gestational diabetes mellitus (GDM) H/O gastric bypass Preeclampsia in period ([facility]) History of pulmonary embolism Personal history of venous thrombosis and embolism Gestational diabetes mellitus (GDM) in third trimester, gestational diabetes method of control unspecified ([facility]) documented in this encounter Additional Health Concerns Active ProblemsNoted DateDiagnosed DatePatient on antidepressant monitoring plan 4Baseline PHQ-904documented as of this encounter Care Teams Team MemberRelationshipSpecialtyStart DateEnd Date Riddhi Plata MD [address] [place] [address] PCP - GeneralFamily Medicine01/16/23documented as of this encounter
--- OUTSIDE RECORDS SUMMARY | 2025-08-27 14:30 | XMS_ITS | Encounter Summary ---
Author Organization [facility] tem Address [id number] [address] [place] [address] Care Team Providers Care Cutter Woodwind Reeds Name Role Phone Riddhi Plata MD Primary Care Provider Encounter Details DateTypeDepartmentCare Team (Latest Contact Info)Wykhpnjglit42/18/2025 2:30 PM ESTTelemedicine Maternal- Medicine at [facility] [address] [place] [address] Viky Romano, YEAST PUMPER-ARTS AND HUMANITIES COUNCIL DIRECTOR [address] [place] [address] Anxiety and depression (Primary Dx); History of pulmonary embolism; Mild intermittent asthma, unspecified whether complicated; Severe obesity due to excess calories affecting in second trimester ([facility]); Hx of gastric bypass Social History Tobacco [...] care, and heating?Not hard at all06/23/2025PHQ-2AnswerDate RecordedTotal Walry427 PRAPARE - TransportationAnswerDate RecordedIn the past 12 [...] part of a household?No06/23/2025hildcareAnswerDate RecordedDo problems getting salesperson children's shoes make it difficult for you to work or study?No06/23/2025 EmploymentAnswerDate WbuqwdjsAscqmztcpqOrykosv48/06/2019Hunger ScreeningAnswer Date RecordedWithin the past 12 months we worried whether our food would run out before we got money to buy more.Never True06/23/2025Within the past 12 months the food we bought just didn't last and we didn't have money to get more.Never True06/23/2025Purpose - LifeAnswerDate RecordedPurpose and direction in life Tjcncxa29/27/2021Estimated Date of UrgdamwdJvtmxerbNzm99/06/2026Based on last menstrual period of 01/09/2025Sex and Gender InformationValueDate RecordedSex Assigned at KmknuDxxacj71/20/2022 9:31 PM ESTLegal AblXzdjoe23/06/2015 11:49 AM EDTGender IeuxcimbOvxcdc49/20/2022 9:31 PM ESTSexual OrientationStraight 07/30/2022 9:31 PM ESTdocumented as of this encounter Progress Notes * Vkiy Romano, YEAST PUMPER-ARTS AND HUMANITIES COUNCIL DIRECTOR - 08/27/2025 2:30 PM EST REASON FOR OFFICE VISIT: Video Visit via Real-time Synchronous Audiovisual Provider Location: [facility]- MEDICINE AT [address] [phone] Patient Location: Patient's home Video Visit Consent [...] that there are some limitations compared to ktwl-ry-fmsr evaluations. The patient consented to the presence [...] pain. +. She is being followed at [facility] due to GDMA2. States she is following [...] 04/23/2024 Performed by Ken Manzo MD at [facility] 06/14/2020 US Guided [...] TSH 1.53 03/24/2024 No results found for: [id number] Lab Results Component Value Date CREATININE 0.44 [...] baby. Little research has been done on fdc effects of Metformin exposure to the fetus. [...] values to us weekly by e-mail to: [email or web address] or by fax to: [phone] TIME OF CONSULTATION: 45 minutes with the patient, >50% in discussion and counseling, coordination of care which was leha-ap-vnte, review of records and communication back to referring provider. MARCEL Renee 08/27/25 1517 documented in this encounter Plan of Treatment DateTypeDepartmentCare Team (Latest Contact Info)Maufuuoeerq06/30/2025 2:15 PM ESTHospital Encounter [facility] - Ultrasound [address] [place] [address] 09/15/2025 8:30 AM ESTTelemedicine Maternal- Medicine at [facility] [address] [facility] [place] [phone] Sana Lima MD [address] [place] [address] Dinah Jacobsen RN [address] [facility] [address] [place] [address] Stacy Aquino LD [address] [facility] 1ST [place] [address] 09/15/2025 11:00 AM ESTOffice Visit Maternal- Medicine at [facility] [address] [place] [address] Lara Looney PA-C [address] [facility] [address] [place] [address] 09/17/2025 10:15 AM ESTOffice Visit [facility] Medicine [address] [place] [phone] Jalyn Vidal, DO [address] [address] 09/22/2025 3:15 PM ESTAppointment [facility] - Ultrasound [address] [place] [address] documented as of this encounter Goals GoalPatient Goal TypeAssociated ProblemsRecent ProgressPatient-Stated?Author safe discharge to home Kate Malave, RN Note: Evaluation of progress towards goal: safe transition from hospital to home with family support. documented as of this encounter Visit Diagnoses Diagnosis Anxiety and depression- Primary History of pulmonary embolism Personal history of venous thrombosis and embolism Mild intermittent asthma, unspecified whether complicated Severe obesity due to excess calories affecting in second trimester ([facility]) Hx of gastric bypass documented in this encounter Additional Health Concerns AssessmentNoted TimePHQ-9 Depression Total Score: 3:05 PM EDT documented as of this encounter Care Teams Team MemberRelationshipSpecialtyStart DateEnd Date Riddhi Plata MD PCP - GeneralFamily Medicine12/09/23documented as of this encounter
--- NOTE | 2025-09-08 11:06 | US_ITS ---
[place] [id number] Patient Name: MADDIE PACHECO MRN: [id number] date: 1995 Sex: F Assigned Patient Location: [facility] Current Patient Location: [facility] Accession/Order Number: [id number] Exam Date: 09/08/2025 11:07 Report Date: 09/08/2025 12:40 At the request of: GONZALEZ PASCAL DO Procedure: US OB BPP w non-stress BIOPHYSICAL PROFILE: CLINICAL INFORMATION: Primary hypertension COMPARISON: 09/01/2025 There is a single live intrauterine gestation in cephalic presentation. The reported gestational age is 34 weeks 4 days. The heart rate measures 134 beats per minute. FINDINGS: TONE: 1 or more episodes of activity extension and flexion of extremity or opening and closing of the hand [Y] 2/2 GROSS BODY MOVEMENTS: 3 or more discrete body or limb movements [Y] 2/2 BREATHING MOVEMENTS: 1 or more episodes of breathing lasting at least 30 seconds [Y] 2/2 MELY: A single deepest vertical pocket of amniotic fluid greater than 2 cm [Y] 2/2 MELY: 13.7 cm Total score: 8/8 US/US OB BPP w non-stress IMPRESSION: NORMAL BIOPHYSICAL PROFILE Impression dictated by: Lakshmi Harmon M.D. 09/08/2025 12:40 PM Dictation Location: [place] [address] Electronically authenticated by: [id number] Y Date: 09/08/2025 12:40
--- OUTSIDE RECORDS SUMMARY | 2025-09-08 11:06 | XMS_ITS | Clinical Summary ---
Author Organization [employer] Address [id number] [address] [place] [address] Care Team Providers Care Manufacturing Controls Engineer Name Role Phone Riddhi Plata MD Primary Care Provider [phone] Allergies Active AllergyReactionsCriticalityNoted DateCommentsSumatriptanAnaphylaxis,Other (See Comments)High11/28/2018 IMITREX [...] to excess calories affecting in second trimester ([facility]),Hx of gastric bypass1 Device by miscellaneous route every 10 days for 30 days. 3 each /6Active insulin lispro (HumaLOG) 100 unit/mL insulin pen Indications:H/O gastric bypassPrime with 2 units then inject 2 units before breakfast, 2 units before lunch and 2 units before dinner 15 mL tive blood-glucose meter [facility] Indications:Insulin controlled gestational diabetes mellitus (GDM) in [...] meal 100 strip tive lancets 33 gauge [facility] Indications:Insulin controlled gestational diabetes mellitus (GDM) in [...] to excess calories affecting in second trimester ([facility]),Hx of gastric bypass1 Device by miscellaneous route [...] 5111/03/2024Discontinued Active Problems ProblemNoted DateDiagnosed DateH/O gastric ckofxc8012/30/2024Postsurgical lkfomcyoofcjg88/22/2025Malnutrition following gastrointestinal khjdydl2312/30/2024 Class 3 severe obesity with body mass index (BMI) of 60.0 to 69.9 in adult 04/23/2024OSA on CPAP02/22/2023History of pulmonary oaitzplc42/08/2022Family history of wbmsueyobi73/08/0361Aykmcd04/01/2019Estimated Date of JmnfppodEnsstbudBdj85/06/2026ased on last menstrual period of 01/09/2025 Resolved Problems ProblemNoted DateDiagnosed DateResolved DatePneumonia due to infectious organism, unspecified laterality, unspecified part of lung/ Gestational vexsviry64reeclampsia, kvtamu00 Encounters DateTypeDepartmentCare BinzOmqxsogodcs44/30/2025 2:15 PM ESTHospital Encounter [facility] - Ultrasound [address] [place] [address] 09/02/2025Orders Only Maternal- Medicine at [facility] [address] [place] [address] Stacy Aquino LD Insulin controlled gestational diabetes mellitus (GDM) in third trimester (Primary Dx)09/02/2025Telephone Maternal- Medicine at [facility] [address] [place] [address] Stacy Aquino LD 09/02/2025Orders Only Maternal- Medicine at [facility] [address] [place] [address] Tracy Kolb APRN-MARLENE H/O gastric bypass (Primary Dx)09/02/2025Telephone Maternal- Medicine at [facility] [address] [facility] [place] [address] Stacy Aquino LD 09/02/2025Orders Only Maternal- Medicine at [facility] [address] [place] [address] Stacy Aquino LD Insulin controlled gestational diabetes mellitus (GDM) in third trimester (Primary Dx); H/O gastric qbemlm8409/01/2025Orders Only [facility] - Labor [address] [facility] [place] [address] Sana Rowe MD 08/27/2025 2:30 PM ESTTelemedicine Maternal- Medicine at [facility] [address] [place] [address] Viky Romano APRN-DEREK Anxiety and depression (Primary Dx); History of pulmonary embolism; Mild intermittent asthma, unspecified whether complicated; Severe obesity due to excess calories affecting in second trimester ([facility]); Hx of gastric autcwg1708/27/2025Telephone Maternal- Medicine at [facility] [address] [place] [address] Cristhian Taylor 08/25/2025Telephone Maternal- Medicine at [facility] [address] [facility] [place] [address] Shayla Alex RN 08/25/2025Orders Only Maternal- Medicine at [facility] [address] [place] [address] Josie Corona, LEANDRO Poor growth affecting management of mother in third trimester, single or unspecified fetus (Primary Dx)08/24/2025 2:26 PM EST - 08/24/2025 11:59 PM EST Hospital Encounter [facility] - [facility] US Imaging [address] [facility] [place] [address] Obesity in , antepartum; Intrauterine growth restriction affecting care of mother, unspecified trimester, not applicable or unspecified fetus Discharge Disposition: Home08/24/2025Orders Only Maternal- Medicine at [facility] [address] [place] [address] Sana Rowe MD Severe obesity due to excess calories affecting in second trimester ([facility]) (Primary Dx); Hx of gastric cwzjbp0708/24/20255368Iypatk51/08/2025 1:15 PM ESTSupport Visit Maternal- Medicine at [facility] [address] [place] [address] Class 3 severe obesity with body mass index (BMI) of 60.0 to 69.9 in adult, unspecified obesity type, unspecified whether serious comorbidity present ([facility]) (Primary Dx); Pre-diabetes; History of gestational diabetes in prior , currently ; History of Arlene-en-Y gastric bypass; Chronic hypertension affecting ; Malnutrition following gastrointestinal surgery; History of pulmonary embolism; H/O gastric qnjhnh8708/17/2025 12:30 PM ESTOffice Visit Maternal- Medicine at [facility] [address] [place] [address] Sana Rowe MD 31 weeks gestation of (Primary Dx); Poor growth affecting management of mother in third trimester, single or unspecified fetus; H/O gastric bypass; History of pulmonary embolism; Chronic hypertension affecting jsmxdmhxy34/08/2025 11:02 AM EST - 08/17/2025 11:59 PM ESTHospital Encounter [facility] - [facility] US Imaging [address] [place] [address] Pre-diabetes; History of gestational diabetes in prior , currently ; History of Arlene-en-Y gastric bypass; Chronic hypertension affecting ; History of pre-eclampsia in prior , currently in second trimester Discharge Disposition: Home08/17/2025Documentation Maternal- Medicine at [facility] [address] [place] [address] Anne Pozo, LEANDRO 08/17/2025Orders Only Maternal- Medicine at [place] [address] [place] [address] Anne Pozo, RN Pre-diabetes (Primary Dx); History of gestational diabetes in prior , currently ; History of Arlene-en-Y gastric bypass; Chronic hypertension affecting ; Malnutrition following gastrointestinal sveyxzn7208/17/20254790Oxnedj15/25/2025Refill [facility] General Surgery-Bariatric [address] [facility] [address] [place] [address] Moriah Lira PA-C History of Arlene-en-Y gastric bypass; Postsurgical malabsorption; Malnutrition following gastrointestinal surgery; B12 /20/2025Refill [facility] General Surgery-Bariatric [address] [facility] [address] [place] [address] Moriah Lira PA-C History of Arlene-en-Y gastric bypass; Postsurgical malabsorption; Malnutrition following gastrointestinal surgery; B12 lplodbuunm33/07/2025Telephone [facility] Pulmonary/Sleep Medicine [address] [facility] [address] [place] [address] Lyla Butt RN 07/09/2025 11:30 AM EDTOffice Visit Maternal- Medicine at [facility] [address] [place] [address] Sana Rowe MD Pre-diabetes (Primary Dx); 20 weeks gestation of ; History of gestational diabetes in prior , currently kodvdpcp94/30/2025 9:45 AM EDT - 07/09/2025 11:59 PM EDTHospital Encounter [facility] - [facility] US Imaging [address] [place] [address] 20 weeks gestation of ; Chronic hypertension affecting ; History of pre-eclampsia in prior , currently in second trimester; History of gestational diabetes in prior , currently in second trimester; History of prediabetes; Bariatric surgery status complicating , second trimester; Severe obesity due to excess calories affecting , antepartum ([facility]); History of maternal pulmonary embolus; Obstructive sleep apnea; History of gestational diabetes in prior , currently ; Depression affecting ; Anxiety disorder affecting , antepartum Discharge Disposition: Home07/09/2025Orders Only Maternal- Medicine at [facility] [address] [place] [address] Anne Pozo RN Pre-diabetes (Primary Dx); History of gestational diabetes in prior , currently ; History of Arlene-en-Y gastric bypass; Chronic hypertension affecting ; History of pre-eclampsia in prior , currently in second hcjeorqgc26/30/8480Koqief73/24/2025Telephone [facility] General Surgery-Bariatric [address] [facility] [address] [place] [address] Ken Manzo MD 06/25/2025Orders Only Maternal- Medicine at [place] [address] [place] [address] Winter Gibbons LPN History of gestational diabetes in prior , currently in second trimester (PrimaryDx); History of prediabetes; History of gestational diabetes in prior , currently uvlfeeee05/14/2025 4:05 AM EDT - 06/23/2025 9:[address] [facility] [address] [place] [address] Spencer Melendez DO Kovach, Corie L, MD Abdominal pain of multiple sites (Primary Dx) Discharge Disposition: Home06/23/20252820Lcvplh51/13/2025Telephone Maternal- Medicine at [facility] [address] [place] [address] Winter Gibbons LPN 06/17/2025 10:39 AM EDT - 06/17/2025 12:10 PM EDTEmergency [facility] [address] [place] [address] Jaswinder Melvin MD Symptomatic cholelithiasis (Primary Dx) Discharge Disposition: Home06/17/20252073Mwarzy94/08/2025Telephone Maternal- Medicine at [facility] [address] [place] [address] Winter Gibbons LPN 06/16/2025Refill [facility] General Surgery-Bariatric [address] [place] [address] Moriah Lira PA-C History of [...] (1 standard drink = 0.6 oz pure alcohol)[facility] UtilitiesAnswerDate RecordedIn the past 12 months [...] care, and heating?Not hard at all06/23/2025PHQ-2AnswerDate RecordedTotal Bkaqi119RAPARE - TransportationAnswerDate RecordedIn the past 12 months, [...] for you to work or study?No06/23/2025 EmploymentAnswerDate NlybwfleMcakdhmkkqVpjtfmo23/06/2019Hunger ScreeningAnswer Date RecordedWithin the past 12 months we worried whether our food would run out before we got money to buy more.Never True06/23/2025Within the past 12 months the food we bought just didn't last and we didn't have money to get more.Never True06/23/2025Purpose - LifeAnswerDate RecordedPurpose and direction in life Yqztyxg00/27/2021Estimated Date of GgueaqrxOnlbizefLon25/06/2026ased on last menstrual period of 01/09/2025Sex and Gender InformationValueDate RecordedSex Assigned at QxpotKoyorj43/20/2022 9:31 PM ESTLegal AxzMmsnml51/06/2015 11:49 AM EDTGender QcryusbxSdricj74/20/2022 9:31 PM ESTSexual OrientationStraight 07/30/2022 9:31 PM EST Last Filed Vital Signs Vital SignReadingTime TakenCommentsBlood Yubrlecj712/7508/17/2025 2:16 PM EST done at office ogwmrZhjjq6556/08/2025 2:15 PM FGXUdleluphxyq41.8 ??C (98.2 ??F) 06/23/2025 7:07 AM EDTRespiratory Nolr248610/18/2024 2:15 PM ESTOxygen Saturation 99%06/23/2025 5:39 AM EDTInhaled Oxygen Concentration--Swtdkj119.7 kg (235 lb 3.2 oz)07/09/2025 10:52 AM YOIBbyzyq201.9 cm (5' 0.98 )07/09/2025 10:52 AM EDT Body Mass Index44.4607/09/2025 10:52 AM EDT Plan of Treatment DateTypeDepartmentCare Team (Latest Contact Info)Ovkphetqtkt20/30/2025 2:15 PM ESTHospital Encounter [facility] - Ultrasound [address] [place] [address] 09/15/2025 8:30 AM ESTTelemedicine Maternal- Medicine at [facility] [address] [facility] [place] [address] Sana Rowe MD [address] [place] [address] Dinah Jacobsen RN [address], [address] [place] [address] Stacy Aquino LD [address] [facility] [address] [place] [address] 09/15/2025 11:00 AM ESTOffice Visit Maternal- Medicine at [facility] [address] [place] [address] Lara Looney PA-C [address] [facility] [address] [place] [address] 09/17/2025 10:15 AM ESTOffice Visit [facility] Pulmonary/Sleep Medicine [address] [facility] [place] [address] Jalyn Vidal, DO [address] [address] 09/22/2025 3:15 PM ESTAppointment [facility] - Ultrasound [address] [place] [address] Health MaintenanceDue DateLast DoneCommentsDTaP,Tdap and Td Vaccines (7 - Td or Tdap), 01/14/1999, 10/23/1996, Additional history exists Depression Vdvhtlojr54/dult BMI Follow Up Plan05/01/2025 05/01/2024Influenza Bdukcww97, 07/11/2011RSV ( or age 60+ yrs) (1 - Risk 1-dose series)08/21/2025dult BMI Screening Tobacco Fjlciqbav11Pap Smear06/10/2028 06/10/2025 Goals GoalPatient Goal TypeAssociated ProblemsRecent ProgressPatient-Stated?Author safe discharge to home Kate Malave, RN Note: Evaluation of progress towards goal: safe transition from hospital to home with family support. Medical Devices Not on file Procedures Procedure NamePriorityDate/TimeAssociated DiagnosisCommentsUS [facility] LMTD OB, 1 OR MORE PCVRBUswjnpg95/15/2025 3:21 PM EST Obesity in , antepartum Intrauterine growth restriction affecting care of mother, unspecified trimester, not applicable or unspecified fetus NONSTRESS ZHPZAphderr33/12/2025 9:29 AM EST Pre-diabetes History of gestational diabetes in prior , currently History of Arlene-en-Y gastric bypass Chronic hypertension affecting Malnutrition following gastrointestinal surgery [facility] OB FOLLOW-UP, 1 LTOUDIaupwtg10/08/2025 12:46 PM EST Pre-diabetes History of gestational diabetes in prior , currently History of Arlene-en-Y gastric bypass Chronic hypertension affecting History of pre-eclampsia in prior , currently in second trimester [facility] OB FOLLOW-UP, 1 HJEDQNyrqmdg51/30/2025 11:17 AM EDT 20 weeks gestation of Chronic hypertension affecting History of pre-eclampsia in prior , currently in second trimester History of gestational diabetes in prior , currently in second trimester History of prediabetes Bariatric surgery status complicating , second trimester Severe obesity due to excess calories affecting , antepartum ([facility]) History of maternal pulmonary embolus Obstructive sleep apnea History of gestational diabetes in prior , currently Depression affecting Anxiety disorder affecting , antepartum CT CTA DQFWMUOSJ43/14/2025 8:40 AM EDT CKMVLQDODDGGWV38/14/2025 5:20 AM EDT JJWVMLYETS22/14/2025 4:21 AM EDT COMPREHENSIVE METABOLIC IAVPRCVKO95/14/2025 4:21 AM EDT CBC WITH AUTO XKUPGTEGSDHWNPGU57/14/2025 4:21 AM EDT US ABDOMEN LLYKSWWM21/08/2025 11:31 AM EDT ER EXTRA VKPOEEJXT39/08/2025 11:24 AM EDT POCT NURSING URINE MACROSCOPIC GRBaipysf68/08/2025 11:09 AM EDT EXTRA TUBES BLUE LGTTwokovo48/08/2025 11:04 AM EDT EXTRA VIGDYGxwiwpe41/08/2025 11:04 AM EDT COMPREHENSIVE METABOLIC SVYZOKUAJ01/08/2025 11:04 AM EDT TRDCQQSDTD09/08/2025 11:04 AM EDT CBC WITH AUTO TOXWTLYLYGELFYOB97/08/2025 11:04 AM EDT from Last 3 Months Results * US MFM LMTD OB, 1 OR MORE FETUS (08/24/2025 3:21 PM EST) Only the most recent of3 resultswithin the time period is included. Anatomical RegionLateralityModalityOB-GYNUltrasoundSpecimen (Source)Anatomical Location / LateralityCollection Method / VolumeCollection TimeReceived Time 08/24/2025 2:47 PM EST Narrative 08/24/2025 3:36 PM EST NAME: ??TARA PERKINS : 1995 SEX: F Accession Number: [id number] ORDERING PHYSICIAN: SANA ROWE REFERRING PHYSICIAN: GONZALEZ PASCAL Coding Procedures ? 58260: Ultrasound, uterus, real time with image documentation, limited one or more fetuses ? 08079: Doppler velocimetry, ; umbilical artery Indication IUGR-Poor growth, Bariatric surgery complicating , Obesity in , history of PE , History of gestational hypertension , History of prior with gestational diabetes , Supervision of high risk , Obesity in . History OB History ? 3. Para 2 ? N4N7G3G1 Current Cell free DNA ?low risk analysis [...] MVP measures 5.3 cm. Recommendations Please see [facility] recommendations from prior clinical and/or ultrasound [...] PERKINS : 1995 SEX: F Accession Number: [id number] ORDERING PHYSICIAN: SANA ROWE REFERRING PHYSICIAN: GONZALEZ PASCAL Coding Procedures 67669: Ultrasound, uterus, real time with image documentation, limited one or more fetuses 63457: Doppler velocimetry, ; umbilical artery Indication IUGR-Poor growth, Bariatric surgery complicating , Obesityin , history of PE , History of gestational hypertension , History of prior with gestationaldiabetes , Supervision of high risk , Obesity in . History OB History 3. Para 2 G0Z9L3D9 Current Cell free DNA low risk analysis Maternal Assessment Physical Exam Height 152 cm, 5 ft. Weight 107 kg, 235 lb. Initial ygnwad136 kg, 239 lb. BMI 45.90 kg/m??. Initial [...] MVP measures 5.3 cm. Recommendations Please see [facility] recommendations from prior clinical and/or ultrasoundreport [...] RN ?08/17/2025 ? Authorizing ProviderResult TypeResult Marco Rowe MDOB GYNE ORDERABLESFinal ResultPerforming OrganizationAddressCity/State/ZIP CodePhone [...] on 06/23/2025 8:49 AM Authorizing ProviderResult TypeResult MahsaCojyoti Dunlap [facility] ORDERABLES Final Result * Urinalysis (06/23/2025 5:20 AM EDT)ComponentValueRef RangeTest MethodAnalysis TimePerformed AtPathologist KugumhwxzBFONXYttsqpMzrbep62/14/2025 6:36 AM EDT [facility]ENTERTURBIDITYClearClear06/23/2025 6:36 AM EDT [facility]ITALPECIFIC GRAVITY1.0201.003 - 1.035 06/23/2025 6:36 AM EDTPAVITA HEALTH SYSTEMNITRITENegative Sdlegmhf36/14/2025 6:[address] [facility]PITALPH,URINE6.0 5.0 - 8.510 6:[address] [facility] HOSPITALLEUKOCYTE NHKYDVLOIlxvysinPnfutfcf25/14/2025 6:36 AM [facility]ENTERPROTEINNegativeNegative06/23/2025 6:[address] [facility] HOSPITALKETONES (URINE)TxuygccwAyblnhbn36/14/2025 6:36 AM EDT [facility] CENTERUROBILINOGEN1.0 eu/dL0.2 eu/dL, 1.0 eu/dL 06/23/2025 6:[address] [facility] HOSPITALBILIRUBIN (URINE) MgzzusdqDnkysyxn38/14/2025 6:36 AM [facility] BLOOD/AUVEbnxcevuNfnojrov27/14/2025 6:36 AM [facility] CENTERGLUCOSE (URINE)NegativeNegative, 250 mg/dL06/23/2025 6:36 AM EDT [facility]OSPITALpecimen (Source)Anatomical Location / LateralityCollection Method / VolumeCollection TimeReceived TimeUrineUrine specimen collection, clean catch / Kmbsbwz5706/23/2025 5:20 AM EDT1 6:32 AM EDT Narrative Authorizing ProviderResult TypeResult StatusCoribridget UNGER ORDERABLES Final ResultPerforming OrganizationAddressCity/State/ZIP CodePhone Number [facility] [address] [place] [address], [place] * (ABNORMAL) CBC auto differential (06/23/2025 4:21 AM EDT) Only the most recent of2 resultswithin the time period is included. ComponentValueRef RangeTest MethodAnalysis TimePerformed AtPathologist Signature WBC9.74 - 11 x10E9/L1 4:49 AM EDTPAVITA HEALTH SYSTEMRBC Count3.38(L)3.8 - 5.2 X10E12/L1 4:49 AM EDTPAVITA HEALTH SYSTEMHemoglobin10.6(L)11.7 - 15.5 g/dL06/23/2025 4:49 AM EDTPAVITA HEALTH SYSTEMHematocrit29.9(L)35 - 47 %06/23/2025 4:49 AM EDSUMMA HEALTH AKRON CAMPUSV8880 - 100 fL06/23/2025 4:[address] [facility] HOSPITALMCH31.327 - 34 pg06/23/2025 4:49 AM EDTPAVITA HEALTH SYSTEMMCHC35.332 - 36 g/dL06/23/2025 4:[address] [facility] WARR[facility] HOSPITALRDW13.011.5 - 15 %06/23/2025 4:[address] [facility]SEPH WARR[facility] HOSPITALPlatelet Phjut402926 - 450 X10E9/L1 4:49 AM EDT [facility] CENTERMPV7.87 - 12 fL06/23/2025 4:49 AM EDT [facility] CENTERNeutrophils %69.6%06/23/2025 4:49 AM EDT [facility] CENTERLymphocytes %24.9%06/23/2025 4:49 AM EDT [facility] CENTERMonocytes %4.0%06/23/2025 4:49 AM EDT [facility] CENTEREosinophils %1.1%06/23/2025 4:49 AM EDT [facility]ENTERBasophils %0.4%06/23/2025 4:49 AM EDT [facility] CENTERNeutrophils Absolute (A)6.8(H)1.5 - 6.6 10*3/uL06/23/2025 4:49 AM [facility] CENTERLymphocytes Absolute2.41.0 - 3.5 10*3/uL06/23/2025 4:49 AM [facility] CENTERMonocytes Absolute0.40.0 - 0.9 10*3/uL06/23/2025 4:49 AM [facility] CENTEREosinophils Absolute0.10.0 - 0.4 10*3/uL06/23/2025 4:49 AM [facility] CENTERBasophils Absolute0.00.0 - 0.2 10*3/uL 06/23/2025 4:49 AM [facility] CENTERDifferential Type AUTOMATED ASIKDRNRWDEW19/14/2025 4:49 AM [facility] Specimen (Source)Anatomical Location / LateralityCollection Method / Volume Collection TimeReceived TimeBloodVenous blood / UnknownVenipuncture / Unknown 06/23/2025 4:21 AM EDT1 4:44 AM EDT Narrative Authorizing ProviderResult TypeResult StatusJesse A Park DOLAB BLOOD ORDERABLES Final ResultPerforming OrganizationAddressCity/State/ZIP CodePhone Number [facility] [address] [place] [address], * Lipase (06/23/2025 4:21 AM EDT) Only the most recent of2 resultswithin the time period is included. ComponentValueRef RangeTest MethodAnalysis TimePerformed AtPathologist Signature PWLARJ1270 - 40 U/L1 5:02 AM [facility] Specimen (Source)Anatomical Location / LateralityCollection Method / Volume Collection TimeReceived TimeBloodVenous blood / UnknownVenipuncture / Unknown 06/23/2025 4:21 AM EDT1 4:44 AM EDT Narrative Authorizing ProviderResult TypeResult StatusJesse A Park DOLAB BLOOD ORDERABLES Final ResultPerforming OrganizationAddressCity/State/ZIP CodePhone Number [facility] [address] [place] [address], * (ABNORMAL) Comprehensive metabolic panel (06/23/2025 4:21 AM EDT) Only the most recent of2 resultswithin the time period is included. ComponentValueRef RangeTest MethodAnalysis TimePerformed AtPathologist Signature MWTOQF877919 - 146 mmol/L1 5:[address] [facility]SE[facility] WARR[facility] HOSPITALPOTASSIUM3.93.5 - 5.0 mmol/L1 5:05 AM [facility] CENTERCHLORIDE10898 - 109 mmol/L1 5:05 AM [facility] CENTERCARBON CEZAYTB24(L)22 - 32 mmol/L1 5:05 AM EDT [facility] CENTERANION GAP85 - 15 mmol/L1 5:05 AM EDT [facility] CENTERBLOOD UREA ZPQVDWPZ97 - 23 mg/dL06/23/2025 5:05 AM [facility] CENTERCREATININE0.440.40 - 1.00 mg/dL 06/23/2025 5:05 AM [facility] CENTERComment:METHOD TRACEABLE TO IDMS QXLCRRTUTKIBDVX1579 - 99 mg/dL06/23/2025 5:05 AM [facility] CENTERCALCIUM8.78.5 - 10.5 mg/dL06/23/2025 5:05 AM EDT [facility] CENTERTOTAL PROTEIN6.36.0 - 8.0 g/dL06/23/2025 5:05 AM [facility] CENTERALBUMIN3.1(L)3.2 - 5.3 g/dL06/23/2025 5:05 AM [facility]ENTERALKALINE UWZXLGXSXPC1082 - 130 U/L 06/23/2025 5:05 AM [facility]ENTERAST11<=41 U/L1 5:05 AM [facility]ENTERALT16<=31 U/L1 5:05 AM [facility] CENTERBILIRUBIN,TOTAL0.50.3 - 1.2 mg/dL 06/23/2025 5:05 AM [facility] MEDICAL CENTEREGFR Non-Race Dependent >90>=60 ml/min/1.73sq.m1 5:05 AM [facility] Comment: eGFR not reported due to non-numeric value for Creatinine. Reported eGFR is based on the CKD-EPI 2020 equation that does not use a race coefficient. Specimen (Source)Anatomical Location / LateralityCollection Method / Volume Collection TimeReceived TimeBloodVenous blood / UnknownVenipuncture / Unknown 06/23/2025 4:21 AM EDT1 4:44 AM EDT Narrative Authorizing ProviderResult TypeResult StatusJesse Lou Melendez COUNTS INCLUDE 234 BEDS AT THE [facility] BLOOD ORDERABLES Final ResultPerforming OrganizationAddressCity/State/ZIP CodePhone Number [facility] [address] [place] [address], [place] * Ultrasound abdomen limited (06/17/2025 11:31 [...] AtPathologist SignatureExtra TubeAuto Resulted 06/17/2025 1:01 PM EDTPTRIHEALTH BETHES[facility]LER HOSPITALpecimen (Source) Anatomical Location / LateralityCollection Method / VolumeCollection Time Received TimeUrineUrine / UnknownCollection / Yaetefc1706/17/2025 11:24 AM EDT 06/17/2025 11:24 AM EDT Narrative Authorizing ProviderResult TypeResult StatusJaswinder Melvin MDURINE ORDERABLES Final ResultPerforming OrganizationAddressCity/State/ZIP CodePhone Number [facility] [address] [place] [address], [place] * POCT Nursing Urine Macroscopic UA (06/17/2025 11:09 AM EDT)ComponentValueRef RangeTest MethodAnalysis TimePerformed AtPathologist SignaturePOC Urine Specific Gravity1.0251.010, 1.015, 1.020, 1.79795 11:10 AM EDT [facility] Urine Leukocyte EsteraseNegative Tyssmaap18/08/2025 11:10 [facility] Urine MngjzzwVeurqwjaVnkyqjva29/08/2025 11:10 AM [facility] Urine pH6.55.0, 6.0, 6.5, 7.0, 7.5, 8.0, 8.5, 5.510 11:10 [facility] Urine ProteinNegativeNegative 06/17/2025 11:10 AM [facility] Urine Glucose XzjnyhpeAqwlwqyg11/08/2025 11:10 AM [facility] Urine PtxlkpnEqpzltssFsznnoce74/08/2025 11:10 AM [facility] Urine Urobilinogen2.0 E.U./dL06/17/2025 11:10 [facility] Urine GrdiowfejRxslimwdJkefyjpz99/08/2025 11:10 [facility] Urine Blood/HGBNegativeNegative 06/17/2025 11:10 AM [facility] (Source) Anatomical Location / LateralityCollection Method / VolumeCollection Time Received MtvkFixfl71/08/2025 11:09 AM EDT1 11:10 AM EDT Narrative Authorizing ProviderResult TypeResult StatusJaswinder Melvin [facility] TEST ORDERABLESFinal ResultPerforming OrganizationAddressCity/State/ZIP CodePhone Number [facility] [address] [place] [address], * Light Blue Top (06/17/2025 11:04 AM EDT)ComponentValueRef RangeTest Method Analysis TimePerformed AtPathologist SignatureExtra TubeAuto Resulted 06/17/2025 1:01 PM [facility] ([facility] Anatomical Location / LateralityCollection Method / VolumeCollection Time Received TimeBloodVenous blood / Myvltwg6506/17/2025 11:04 AM EDT1 11:12 AM EDT Narrative Authorizing ProviderResult TypeResult StatusJaswinder Melvin [facility] BLOOD ORDERABLES Final ResultPerforming OrganizationAddressCity/State/ZIP CodePhone Number [facility] [address] [place] [address], from Last 3 Months Insurance Advance Directives * Full Code (Latest Code Status on File) Date ActivatedDate AbaduxnennpGsrenxkx74/14/2025 9:38 AM06/23/2025 11:46 AM * Full Code Date ActivatedDate InactivatedComments04/23/2024 11:06 AM04/24/2024 4:47 PM * Full Code Date ActivatedDate LzyoqclnpieFoaisyka96/20/2022 11:42 PM07/31/2022 2:48 PM * Full Code Date ActivatedDate InactivatedComments11/24/2018 10:44 PM11/27/2018 4:48 PM Care Teams Team MemberRelationshipSpecialtyStart DateEnd Date Riddhi Plata MD PCP - GeneralFamily Medicine12/09/23
--- OUTSIDE RECORDS SUMMARY | 2025-09-08 11:06 | XMS_ITS | Encounter Summary ---
Author Organization [facility] Address [address] [place] [address] Care Team Providers Care P 3 Armament/Ordnance Ima Technician Name Role Phone Jessica Mariscal MD Primary Care Provider [phone] Encounter Details DateTypeDepartmentCare Team (Latest Contact Info)Gsbtsveusrn24/23/2025linisync Result Encounter [facility] Unsolicited Gonzalez Morales DO [address] [place] [address] Social History Tobacco UseTypesPacks/DayYears UsedDateSmoking Tobacco: NeverSmokeless Tobacco: NeverAlcohol UseStandard Drinks/WeekCommentsNever0 (1 standard drink = 0.6 oz pure alcohol)Caffeine intake: 1-2 cups per day coffeeEstimated Date of EdvhgtkjUyukplzbKjr25/06/2026ased on last menstrual period of 01/09/2025Sex and Gender InformationValueDate RecordedSex Assigned at BirthNot on fileLegal Sex Vehbav7011/22/2022 9:44 PM EDTGender IdentityNot on fileSexual OrientationNot on filedocumented as of this encounter Plan of Treatment DateTypeDepartmentCare Team (Latest Contact Info)Tkcmejgwgjy77/31/2025 9:40 AM ESTRoutine [facility] [address] [place] [address] Nena Spicer, RONALD [address] [place] [address] documented as of this encounter Goals GoalPatient Goal TypeAssociated ProblemsRecent ProgressPatient-Stated?Author Help patient manage antidepressant medication Care PlanPatient on antidepressant monitoring Jessica Mcdonald MD Baseline PHQ-9 Care PlanBaseline PHQ-9Jessica Lerma MDdocumented as of this encounter Procedures Procedure NamePriorityDate/TimeAssociated DiagnosisCommentsUS OB BPP W NON-KKIHHM5609/01/2025 11:45 AM EST documented in this encounter Results * US OB BPP W NON-STRESS (09/01/2025 11:45 AM EST)Anatomical Region LateralityModalityOtherSpecimen (Source)Anatomical Location / Laterality Collection Method / VolumeCollection TimeReceived Time09/01/2025 11:45 AM EST Narrative 09/01/2025 11:47 AM EST [facility] ?[address] ? [place] [address] ? Ultrasound Report ? Signed ? Patient: SHIRA JETT L ? MR#: [id number] ?? : 1995 ?Acct:[id number] ?? Age/Sex: 30 / F ?ADM Date: 09/01/25 ?? Loc: [facility] ??256-1 ? Attending Dr: Gonzalez Morales D.O. ? Ordering Physician: Gonzalez Morales D.O. ?? Date of Service: 09/01/25 ?? Procedure(s): US OB BPP w non-stress ?? Accession Number(s): [id number] ? cc: JESSICA MARISCAL ; Gonzalez Morales D.O. ? [facility] ? [address] ? [place] [address] ? Patient Name: ?? SHIRA JETT ? MRN: [id number] ? date: 1995 ?Sex: F ?? Assigned Patient Location: [place] ?? Current Patient Location: [place] ?? Accession/Order Number: [id number] ?? Exam Date: 09/01/2025 ??11:05 ?Report Date: [...] Dictation Location: RADIO-PC-30 ? Electronically authenticated by: [id number] ??Y ?? Date: 09/01/2025 ??11:45 ? Dictated By: ?Lakshmi Harmon M.D. ? Signed By: ?12/23/25 1147 ? DD/ 1145 ? TD/TT: ? Real Estate Developer: Procedure Note Radiology, Radiologist, MD - 09/01/2025 [place] [address] Ultrasound Report Signed Patient: SHIRA JETT LMR#: [id number] : 1995Acct:[id number] Age/Sex: 30 / FADM Date: 09/01/25 Loc: [facility] 256-[address]: Gonzalez Morales D.O. Ordering Physician: Gonzalez Morales D.O. Date of Service: 09/01/25 Procedure(s): US OB BPP w non-stress Accession Number(s): [id number] cc: JESSICA MARISCAL ; Gonzalez Morales D.O. The [place] [id number] Patient Name: SHIRA JETT MRN: [id number] date: 1995 Sex: F Assigned Patient Location: [place] Current Patient Location: [place] Accession/Order Number: [id number] Exam Date: 09/01/2025 11:05 Report Date: 09/01/2025 [...] Harmon M.D. 09/01/2025 11:45 AM Dictation Location: [place] Electronically authenticated by: [id number] Y Date: 1:45 Dictated By: Lakshmi Harmon M.D. Signed By:09/01/25 1147 DD/ 1145 TD/TT: Real Estate Developer: Authorizing ProviderResult TypeResult StatusCorey Carmen DOCLINISYNC IMAGINGFinal Result documented in this encounter Visit Diagnoses Not on filedocumented in this encounter Additional Health Concerns Active ProblemsNoted DateDiagnosed DatePatient on antidepressant monitoring plan 4Baseline PHQ-904documented as of this encounter Care Teams Team MemberRelationshipSpecialtyStart DateEnd Date Jessica Mariscal MD [address] [place] [address] PCP - GeneralFamily Medicine01/16/23documented as of this encounter
--- OUTSIDE RECORDS SUMMARY | 2025-09-08 11:07 | XMS_ITS | Clinical Summary ---
Author Organization [facility] Healthcare Address [address] [place] [address] Care Team Providers Care Walking Dragline Oiler Name Role Phone Riddhi Plata MD Primary Care Provider [phone] Allergies Active AllergyReactionsCriticalityNoted DateCommentsSumatriptanAnaphylaxis, CvcdjzeEzez99/21/2019 IMITREX FOR MIGRAINES Other Reaction(s): Other (See [...] 28-0.8 MG tablet Indications:, unspecified gestational age ([facility]),Encounter for supervision of normal first in first trimester ([facility])Take 1 tablet by mouth Daily 30 tablet 60506Active busPIRone (Buspar) 15 MG tablet Indications:AnxietyTAKE 1 TABLET BY MOUTH 2 TIMES A DAY (MORNING AND BEFORE BEDTIME) 180 tablet 5Active labetalol (Normodyne) 200 MG tablet Indications:Pre-existing essential hypertension during , antepartum ([facility]),Primary hypertension,History of pulmonary embolismTAKE 1 TABLET BY [...] Discontinued(Reorder) Active Problems ProblemNoted DateDiagnosed DateH/O gastric ojjant0304/20/20258365Cxlaqff19/07/2023 Disorder of endocrine dzrsxa2305/17/2023Frequent gjctoquuu58/07/2023Irregular msinqmo4805/17/2023Menorrhagia with regular cycle05/17/2023lass 3 severe obesity due to excess calories with serious comorbidity and body mass index (BMI) of50.0 to 59.9 in adult05/17/2023Nausea and shehebka76/07/2023cute pulmonary embolism 05/17/2023Single subsegmental pulmonary embolism without acute cor pulmonale 05/17/2023Thyroid lxltgr5705/17/2023Urinary tract infection without hematuria 05/17/2023OSA on CPAP02/22/2023Morbid obesity with body mass index of 60.0-69.9 in adult01/26/2023olycystic ovarian umfdhse1701/26/2023rimary hypertension 01/26/2023neumonia due to infectious njnoubxv05/20/2022Family history of /08/2022History of pulmonary kwghvvuu45/08/2022djustment disorder with fbwuabt0111/30/2021History of diet controlled gestational diabetes mellitus (GDM)11/30/2021Family history of diabetes during qmrmubfga12/21/2022reeclampsia in period ([facility])11/26/2021 Overview (05/17/2023): 11/29/21: Discharged home with Labetalol 600 QID and Procardia 90 XL qd. Pt has appt with Dr. Morales in [place] 11/30/21 for her PP appt. Pt has BP cuff at home already and would like to f/u with [facility] Philosophy And Religion Instructor 12/09/21: Decreased to Labetalol 600 TID 12/26/21: Decreased to Procardia 90 XL qd. Iron deficiency veqssp9912/29/2019Gastroesophageal reflux udtoovw8212/15/2019 Seasonal allergic rhinitis due to lusnkw4912/15/20197821Czsuiyw95/28/2019Anemia 06/26/20197564Rmouulbxow27/04/2019 Overview (05/17/2023): Started on Celexa Gestational diabetes mellitus (GDM) ([facility])12/09/20180829Fafhfv92/01/2019 Estimated Date of QlksiuusZjlbmyupWws91/06/2026Based on last menstrual period of 01/09/2025 Encounters DateTypeDepartmentCare CfawUxvbzaabzsp67/23/2025Clinisync Result Encounter NOMS External Department Unsolicited Gonzalez Morales DO 08/26/2025 11:20 AM ESTRoutine [facility] [address] [place] [address] [place] [address] Winter English PA Third trimester ([facility]); 32 weeks gestation of ([facility]); History of diet controlled gestational diabetes mellitus (GDM); H/O gastric bypass; Preeclampsia in period ([facility]); History of pulmonary embolism; Gestational diabetes mellitus (GDM) in third trimester, gestational diabetes method of control unspecified ([facility])08/26/2025amboo flowsheet [facility] [address] [place] [address] Winter English PA 08/25/2025linisync Result Encounter NOMS External Department Unsolicited Gonzalez Morales, DO 08/25/2025bstract [facility] [place] [facility] [address] [address] Gonzalez Morales, DO 08/12/2025Telephone [facility] [place] [facility] [address] [place] [address] [place] 08/11/2025 8:40 AM ESTRoutine [facility] [address] [address] Gonzalez Morales, 30 weeks gestation of ([facility]); Third trimester ([facility]); History of diet controlled gestational diabetes mellitus (GDM); Preeclampsia in period ([facility]); History of pulmonary embolism; Primary mdwpakyprgfw76/02/2025amboo flowsheet [facility] [address] [place] [address] Gonzalez Morales, 08/10/2025Telephone [facility] [place] [facility] [address] [place] [address] Roseanne Jones [place] 07/30/2025 9:10 AM ESTRoutine [facility] [address] [address] Gonzalez Morales, 28 weeks gestation of ([facility]); Third trimester ([facility]); Pruritus; History of diet controlled gestational diabetes mellitus (GDM); Preeclampsia in period ([facility]); History of pulmonary embolism; Primary hypertension; History of bxgtod50/20/2025Bamboo flowsheet [facility] [place] [facility] [address] [place] [address] Gonzalez Morales, DO 07/10/2025bstract [facility] [place] [facility] [address] [place] [phone] Gonzalez Morales, DO 07/10/2025bstract [facility] [address] [place] [address] Gonzalez Morales, DO 07/08/2025 8:30 AM EDTRoutine [facility] [address] [address] Winter English PA Second trimester ([facility]); 25 weeks gestation of ([facility]); Gaafjhpq05/29/2025linisync Result Encounter NOMS External Department Unsolicited Winter English PA 07/08/2025amboo flowsheet [facility] [place] [facility] [address] [place] [address] [place] [address] Winter English PA 5Clinisync Result Encounter NOMS External Department Unsolicited Gonzalez Morales, 07/01/2025linisync Result Encounter NOMS External Department Unsolicited Provider, Generic External Data 06/27/2025Refill [facility] [address] [address] Gonzalez Morales, Pre-existing essential hypertension during , antepartum ([facility]); Primary hypertension; History of pulmonary /15/2025 1:40 PM EDTRoutine NOMS [facility] [facility] [place] [address] Winter English PA Gallstones and inflammation of gallbladder without obstruction (Primary Dx); Second trimester ([facility]); 23 weeks gestation of ([facility]); History of diet controlled gestational diabetes mellitus (GDM); Preeclampsia in period ([facility]); History of pulmonary embolism; Primary hypertension; Diabetes mellitus qygmufybf16/14/2025Telephone [facility] [address] [place] [address] Gonzalez Morales DO 06/18/2025Orders Only [facility] [address] [address] Leslye Chairez LPN 06/10/2025 8:50 AM EDTRoutine N[facility]S [facility] [address] [facility] [place] [address] Nena Spicer NP 21 weeks gestation of ([facility]); Well woman exam; Second trimester ([facility]); Screen for STD (sexually transmitted disease); Well woman exam with routine gynecological exam; Diabetes mellitus screening; Iron deficiency anemia, unspecified iron deficiency anemia type06/10/2025 Clinisync Result Encounter NOMS External Department Unsolicited Nena Spicer NP 06/10/2025amboo flowsheet N[facility]S [facility] [address] [address] Nena Spicer NP from Last 3 Months Immunizations ImmunizationAdministration DatesNext DueDTaP, Dhelwwawper59/07/1999,10/23/1996, 01/17/1996,09/28/1995,03/28/1995HPV, Yvszwbugmlat80/29/2009,02/05/2009, 12/01/2008Hep A, ped/adol, 2 dose02/08/2012,02/05/2009,12/01/2008Hep B, Adolescent or Rruyrrzwt49/09/1996,09/28/1995,03/28/1995HiB, unspecified 10/23/1996,01/17/1996,09/28/1995,03/28/1995Influenza, injectable, quadrivalent, preservative free08/11/2019Influenza, seasonal, npfkxpwyka15/01/2011MMR 01/14/1999,03/28/1995Meningococcal TIJ2R9812/01/2008Polio, Qcykmwonowf75/07/1999, 01/17/1996,09/28/1995,03/28/1995Tdap12/01/2008 Family History Medical HistoryRelationNameCommentsDiabetesFatherHypertensionFatherMental illnessFatherCancerMaternal GrandmotherHypertensionMotherDiabetesPaternal GrandfatherCancerPaternal FtjdxxcysbbPrgusxpsKvmjPoarncPptwdjdpRdpzoas9Fcqfwzqt2 FatherAliveMaternal GrandmotherMotherAlivePaternal GrandfatherPaternal HftvhjcctsuJzghfm4Vtz3 Social History Tobacco UseTypesPacks/DayYears UsedDateSmoking Tobacco: NeverSmokeless Tobacco: Never Tobacco Cessation:Counseling Given: Not Answered Alcohol UseStandard Drinks/WeekCommentsNever0 (1 standard drink = 0.6 oz pure alcohol)Caffeine intake: 1-2 cups per day coffeeEstimated Date of MeqlvvegXiluvcryIoi87/06/2026Based on last menstrual period of 01/09/2025Sex and Gender InformationValueDate RecordedSex Assigned at BirthNot on fileLegal Sex Cgyzgd1411/22/2022 9:44 PM EDTGender IdentityNot on fileSexual OrientationNot on file Last Filed Vital Signs Vital SignReadingTime TakenCommentsBlood Yjhlmpen795/7008/26/2025 11:35 AM EST Vohyk613810/10/2024 3:32 PM ESTTemperature--Respiratory Mnnp990810/10/2024 3:32 PM ESTOxygen Jteorvcugq17%10/10/2024 3:32 PM ESTInhaled Oxygen Concentration-- Zpyjek677 kg (236 lb)08/26/2025 11:35 AM RDFIeilvr709.9 cm (5' 1 )10/10/2024 3:32 PM ESTBody Mass Index44.59010/10/2024 3:32 PM EST Plan of Treatment DateTypeDepartmentCare Team (Latest Contact Info)Xrbuqtnzjzo93/31/2025 9:40 AM ESTRoutine [facility] [address] [place] [address] Nena Spicer, O AND M SUPERVISOR [address] [place] [address] Health MaintenanceDue DateLast DoneCommentsPneumococcal Vaccine: Pediatrics (0 to 5 Years) and At-Risk Patients (6 to 64 Years) (1 of 2 - PCV)2013 Influenza Vaccine (#1)5110/12/2018, 07/11/2011HPV/Ziuida6706/07/2028 06/07/2023, 12/11/2017Cervical Cancer Wmbnilfag09/01/2028Pap Smear06/10/2028 06/10/2025 Goals GoalPatient Goal TypeAssociated ProblemsRecent ProgressPatient-Stated?Author Help patient manage antidepressant medication Care PlanPatient on antidepressant monitoring Riddhi Mcdonald MD Baseline PHQ-9 Care PlanBaseline PHQ-9Riddhi Lerma MD Procedures Procedure NamePriorityDate/TimeAssociated DiagnosisCommentsUS OB BPP W NON-JLJHDQ8709/01/2025 11:45 AM EST POCT URINALYSIS OUYYXQSXCqjzhad33/17/2025 11:37 AM EST Third trimester ([facility]) OB BPP W NON-DUDHJC0008/25/2025 12:15 PM EST POCT URINALYSIS UCMHUFERUcoenyp13/02/2025 9:11 AM EST 30 weeks gestation of ([facility]) Third trimester ([facility]) History of diet controlled gestational diabetes mellitus (GDM) Preeclampsia in period ([facility]) History of pulmonary embolism Primary hypertension POCT URINALYSIS ZHFKAVZISirickv01/20/2025 9:11 AM EST 28 weeks gestation of ([facility]) Third trimester ([facility]) [facility] BILE ACIDS FRACT QVVDqqowzi11/29/2025 9:40 AM EDT ALL HEPATITIS C LIQgivzqx06/29/2025 9:40 AM EDT ALL THYROID STIM EDSQVRDIsohboy25/29/2025 9:40 AM EDT HMHP LIVER RURRMVlwaskj92/29/2025 9:40 AM EDT ALL CBC WITH AUTO ROGLYddrabk34/29/2025 9:40 AM EDT POCT URINALYSIS QFTKCRUJIztmoih71/29/2025 8:48 AM EDT 25 weeks gestation of ([facility]) SSPZZYLEOfcvfzi81/26/2025 8:00 PM EDT [facility] UA (CLEAN/CATCH) PAD ASSEMBLER/MICRO IF IND.Oyflvgc0107/05/2025 7:50 PM EDT ALL CBC WITH AUTO STTBDkcrlit19/22/2025 9:21 AM EDT MLR HEMOGLOBIN V2RNusoyqj38/22/2025 9:21 AM EDT RECURRENT VAGINITIS (HTRX)Zbhztni6206/10/2025 10:04 AM EDT POCT URINALYSIS SPOYJOLVUqbuhmj00/01/2025 9:14 AM EDT 21 weeks gestation of ([facility]) IGP,APTIMA HPV,AGE TASQHgdueqk04/01/2025 9:06 AM EDT PAP JQHOXJldiste01/01/2025 12:00 AM EDTTHINPREP PAP AND HPV MRNA E6/E7 W/RFL HPV 16,18/62Auovpnn88/28/2023 4:13 PM EDT Well woman exam with routine gynecological exam from Last 3 Months or Most Recently Relevant to Health Maintenance Results * US OB BPP W NON-STRESS (09/01/2025 11:45 AM EST) Only the most recent of2 resultswithin the time period is included. Anatomical RegionLateralityModalityOtherSpecimen (Source)Anatomical Location / LateralityCollection Method / VolumeCollection TimeReceived Time09/01/2025 11:45 AM EST Narrative 09/01/2025 11:47 AM EST [facility] ?[address] ? [place] [address] ? Ultrasound Report ? Signed ? Patient: TARA,SHIRA L ? MR#: [id number] ?? : 1995 ?Acct:[id number] ?? Age/Sex: 30 / F ?ADM Date: 09/01/25 ?? Loc: [facility] ??256-1 ? Attending Dr: Gonzalez Morales D.O. ? Ordering Physician: Gonzalez Morales D.O. ?? Date of Service: 09/01/25 ?? Procedure(s): US OB BPP w non-stress ?? Accession Number(s): [id number] ? cc: RIDDHI PLATA ; Gonzalez Morales D.O. ? [facility] ? [address] ? [place] [address] ? Patient Name: ?? SHIRA JETT ? MRN: [facility]:[id number] ? date: 1995 ?Sex: F ?? Assigned Patient Location: US ?? Current Patient Location: US ?? Accession/Order Number: [id number] ?? Exam Date: 09/01/2025 ??11:05 ?Report Date: [...] Dictation Location: RADIO-PC-30 ? Electronically authenticated by: [id number] ??Y ?? Date: 09/01/2025 ??11:45 ? Dictated By: ?Lakshmi Harmon M.D. ? Signed By: ?12/23/25 1147 ? DD/ 1145 ? TD/TT: ? Cook'S Assistant: Procedure Note Radiology, Radiologist, - 09/01/2025 [place] [address] Ultrasound Report Signed Patient: SHIRA JETT LMR#: [id number] : 1995Acct:[id number] Age/Sex: 30 / FADM Date: 09/01/25 Loc: [facility] 256-[address]: Gonzalez Morales D.O. Ordering Physician: Gonzalez Morales D.O. Date of Service: 09/01/25 Procedure(s): US OB BPP w non-stress Accession Number(s): [id number] cc: RIDDHI PLATA ; Gonzalez Morales D.O. The [place] [address] Patient Name: SHIRA JTET MRN: [facility]:[id number] date: 1995 Sex: F Assigned Patient Location: US Current Patient Location: [place] Accession/Order Number: [id number] Exam Date: 09/01/2025 11:05 Report Date: 09/01/2025 [...] Harmon M.D. 09/01/2025 11:45 AM Dictation Location: [place] [address] Electronically authenticated by: [id number] Y Date: 1:45 Dictated By: Lakshmi Harmon M.D. Signed By:09/01/25 1147 DD/ 1145 TD/TT: Cook'S Assistant: Authorizing ProviderResult TypeResult StatusCorey Carmen DOCLINISYNC IMAGINGFinal [...] Location / LateralityCollection Method / VolumeCollection TimeReceived LvxzCmzio14/17/2025 11:37 AM EST Narrative Authorizing ProviderResult TypeResult StatusAmy [facility] TEST ENTER/EDIT ORDERABLESFinal Result * (ABNORMAL) [facility] LIVER PANEL (07/08/2025 9:40 AM EDT)ComponentValueRef Range Test MethodAnalysis TimePerformed AtPathologist SignatureBILIRUBIN TOTAL0.20.2 - 1.0 mg/dLTBHBILIRUBIN DIRECT0.10.0 - 0.2 mg/dLTBHASPARTATE AMINO TRANSFERASE8(L)15 - 37 U/LTBHALANINE YNFGPMLQKANNGAUV9819 - 59 U/LTBHALKALINE BYGBCLYRDEQ4452 - 116 U/LTBHTOTAL PROTEIN6.66.4 - 8.2 g/dLTBHALBUMIN LEVEL2.9 (L)3.4 - 5.0 g/dLTBHGLOBULIN3.7g/dLTBHALBUMIN GLOBULIN RATIO0.8TBHSpecimen (Source)Anatomical Location / LateralityCollection Method / VolumeCollection TimeReceived Time07/08/2025 9:40 AM EDT1 9:52 AM EDT Narrative [facility] - 07/08/2025 11:42 AM EDT Authorizing ProviderResult TypeResult StatusAmy Amador PACLINISYNCFinal Result Performing OrganizationAddressCity/State/ZIP CodePhone Number [facility] * [facility] BILE ACIDS FRACT BLD (07/08/2025 9:40 AM EDT)ComponentValueRef RangeTest MethodAnalysis TimePerformed AtPathologist SignatureBILE ACIDS9.20.0 - 10.0 umol/LTBHComment: Performed at: ??BN - [facility] [address] ??[id number] Lab Technologist: Alexis Carrizales MD, Phone: ??[phone] Specimen (Source)Anatomical Location / LateralityCollection Method / Volume Collection TimeReceived Time07/08/2025 9:40 AM EDT1 9:52 AM EDT Narrative [facility] - 07/10/2025 7:08 AM EDT Authorizing ProviderResult TypeResult StatusAmy Amador PACLINISYNCFinal Result Performing OrganizationAddressCity/[facility]/ZIP CodePhone Number [facility] * ALL THYROID STIM HORMONE (07/08/2025 9:40 AM EDT)ComponentValueRef RangeTest MethodAnalysis TimePerformed AtPathologist SignatureTHYROID STIMULATING HORMONE2.1800.358 - 3.740 uIU/mLTBHSpecimen (Source)Anatomical Location / LateralityCollection Method / VolumeCollection TimeReceived Time07/08/2025 9:40 AM EDT1 9:52 AM EDT Narrative [facility] - 07/08/2025 11:42 AM EDT Authorizing ProviderResult TypeResult StatusAmy Amador PACLINISYNCFinal Result Performing OrganizationAddressCity/State/ZIP CodePhone Number [facility] * ALL HEPATITIS C AB (07/08/2025 9:40 AM EDT)ComponentValueRef RangeTest Method Analysis TimePerformed AtPathologist SignatureHCV ANTIBODYNon ReactiveNon ReactiveTBHComment: HCV antibody alone does not differentiate between previously resolved infection and active infection. Equivocal and Reactive HCV antibody results should be followed up with an HCV RNA test to support the diagnosis of active HCV infection. Performed at: ??CB - [facility] [address] ??[id number] Lab Technologist: Sedrick Snider PhD, Phone: ??[phone] Specimen (Source)Anatomical Location / LateralityCollection Method / Volume Collection TimeReceived Time07/08/2025 9:40 AM EDT1 9:52 AM EDT Narrative [facility] - 07/09/2025 4:07 AM EDT Authorizing ProviderResult TypeResult StatusAmy Amador PACLINISYNCFinal Result Performing OrganizationAddressCity/State/ZIP CodePhone Number [facility] * (ABNORMAL) ALL CBC WITH [...] - 35.2 g/dLTBHTBH RDW13.211.0 - 15.0 %TBHTBH RQT350611 - 450 10 3/uLTBHTBH MPV9.99.5 - 13.5 [...] Amador PACLINISYNCFinal Result Performing OrganizationAddressCity/State/ZIP CodePhone Number [facility] * AMNISURE (07/05/2025 8:00 PM EDT)ComponentValueRef RangeTest MethodAnalysis TimePerformed AtPathologist SignatureTBH AMNISURENEGATIVENEGATIVETBHSpecimen (Source)Anatomical Location / LateralityCollection Method / VolumeCollection TimeReceived Time07/05/2025 8:00 PM EDT1 8:21 PM EDT Narrative [facility] - 07/05/2025 8:27 PM EDT Authorizing ProviderResult TypeResult StatusValejyoti Blood CNMLAB BLOOD ORDERABLESFinal ResultPerforming OrganizationAddressCity/State/ZIP CodePhone Number [facility] * (ABNORMAL) [facility] UA (CLEAN/CATCH) PAD ASSEMBLER/MICRO IF IND. (07/05/2025 7:50 PM EDT) ComponentValueRef [...] Carmen DOCLINISYNCFinal Result Performing OrganizationAddressCity/State/ZIP CodePhone Number [facility] * MLR HEMOGLOBIN A1C (07/01/2025 9:21 AM EDT)ComponentValueRef RangeTest Method Analysis TimePerformed AtPathologist SignatureGLYCOHEMOGLOBIN A1C4.84.5 - 6.2 %TBHComment: ADA RECOMMENDED LIMIT 4.0 - 6.0 ADA THERAPEUTIC TARGET < 7.0 ACTION SUGGESTED > 7.0 ESTIMATED AVERAGE JDPLSSE00vn/dLTBHSpecimen (Source)Anatomical Location / LateralityCollection Method / VolumeCollection TimeReceived Time07/01/2025 9:21 AM EDT1 9:38 AM EDT Narrative [facility] - 07/01/2025 9:54 AM EDT Authorizing ProviderResult TypeResult StatusGeneric External Data Provider CLINISYNCFinal ResultPerforming OrganizationAddressCity/State/ZIP CodePhone Number [facility] * RECURRENT VAGINITIS (HTRX) (06/10/2025 10:04 AM EDT)ComponentValueRef Range Test MethodAnalysis TimePerformed AtPathologist SignatureATOPOBIUM VAGINAE0 19.961 - 24.689 ppm06/11/2025 6:30 AM EDTHealthTrackRx at [facility] HospitalATOPOBIUM VAGINAENot Awphhzqt97.961 - 24.689 ppm06/11/2025 6:30 AM EDTHealthTrackRx at [facility] HospitalBVAB 2,3 (BACTERIAL VAGINOSIS ASSOCIATED BACTERIA 2, 3); MOBILUNCUS SPP 019.961 - 24.689 ppm06/11/2025 6:30 AM EDTHealthTrackRx at [facility] HospitalBVAB 2,3 (BACTERIAL VAGINOSIS ASSOCIATED BACTERIA 2, 3); MOBILUNCUS SPPNot Detected 19.961 - 24.689 ppm06/11/2025 6:30 AM EDTHealthTrackRx at [facility] HospitalCANDIDA ALBICANS, PARAPSILOSIS, ZIFOYBVSWU006.000 - 30.347 ppm06/11/2025 6:30 AM EDT [facility] HospitalCANDIDA ALBICANS, PARAPSILOSIS, TROPICALISNot Detected 23.000 - 30.347 ppm06/11/2025 6:30 AM EDTHealthTrackRx at [facility] HospitalCANDIDA RTTHWUXX596.000 - 31.618 ppm06/11/2025 6:30 AM EDTHealthTrackRx at [facility] YUAN GLABRATANot Aghlsdnx11.000 - 31.618 ppm06/11/2025 6:30 AM EDT [facility] HospitalCANDIDA CRAKPW417.000 - 30.873 ppm06/11/2025 6:30 AM EDTHealthTrackRx at [facility] HospitalCANDIDA KRUSEINot Jjsuvsrv14.000 - 30.873 ppm 06/11/2025 6:30 AM EDTHealthTrackRx at [facility] HospitalCHLAMYDIA HDMHOBXWBHF536.000 - 31.586 ppm06/11/2025 6:30 AM EDTHealthTrackRx at [facility] HospitalCHLAMYDIA TRACHOMATIS Not Lgflfetw91.000 - 31.586 ppm06/11/2025 6:30 AM EDTHealthTrackRx at [facility] GARDNERELLA RZLTPPKNS742.961 - 24.689 ppm06/11/2025 6:30 AM EDTHealthTrackRx at [facility] HospitalGARDNERELLA VAGINALISNot Iskkvanu28.961 - 24.689 ppm06/11/2025 6:30 AM EDTHealthTrackRx at [facility] HospitalMEGASPHAERA (TYPES 1, 2)019.961 - 24.689 ppm 06/11/2025 6:30 AM EDTHealthTrackRx at [facility] HospitalMEGASPHAERA (TYPES 1, 2)Not Aoheabne57.961 - 24.689 ppm06/11/2025 6:30 AM EDTHealthTrackRx at [facility] NEISSERIA SYZOTIWIQSZ267.000 - 32.587 ppm06/11/2025 6:30 AM EDTHealthTrackRx at [facility] HospitalNEISSERIA GONORRHOEAENot Jhsewwhn81.000 - 32.587 ppm06/11/2025 6:30 AM EDTHealthTrackRx at [facility] HospitalTRICHOMONAS USLTVQCCM280.000 - 31.995 ppm 06/11/2025 6:30 AM EDTHealthTrackRx at [facility] HospitalTRICHOMONAS VAGINALISNot Lujqvqzi32.000 - 31.995 ppm06/11/2025 6:30 AM EDTHealthTrackRx at [facility] MYCOPLASMA ZSQONIRRHN103.961 - 24.689 ppm06/11/2025 6:30 AM EDTHealthTrackRx at [facility] Healthcare HospitalMYCOPLASMA GENITALIUMNot Awpzkqzx26.961 - 24.689 ppm06/11/2025 6:30 AM EDTHealthTrackRx at LabDeacon[facility]inte CenterSpecimen (Source)Anatomical Location / LateralityCollection Method / VolumeCollection TimeReceived TimeTissue 06/10/2025 10:04 AM EDT1 1:43 AM EDT Narrative Authorizing ProviderResult TypeResult StatusKrconstantin Spicer NPLAB BLOOD ORDERABLESFinal ResultPerforming OrganizationAddressCity/State/ZIP CodePhone Number [facility]De[facility] [address] [address] * IGP,APTIMA HPV,AGE GDLN (06/10/2025 9:06 AM [...] ?[facility] [address] ?? [address] [place] ??[address] ?? Flores Rodgers MD, IGP, APTIMA HPV, RFX 16/18,45Note.TBHComment: ?? TESTS ? RESULT ??FLAG ??UNITS ?REF RANGE ??LAB DIAGNOSIS: ?02 ?? NEGATIVE FOR INTRAEPITHELIAL LESION OR MALIGNANCY. Specimen adequacy: ?02 ?? Satisfactory for evaluation. No endocervical component is identified. Performed by: ? 02 ?? Jorge Whittington Private Branch Exchange Repairer (ASCP) . ? 02 Note: ? Note [...] High,A-Abnormal,AA-Critical Abnormal Performed at: 02 WB ?[facility] [place] ?? [address], [place] ??[address] ?? Flores Rodgers MD, HPV APTIMANegativeNegativeTBHComment: This nucleic acid amplification test detects fourteen high- risk HPV types (16,18,31,33,35,39,45,51,52,56,58,59,66,68) without differentiation. Performed at: ??=G - [facility] [address] ??[id number] Lab Technologist: Flores Rodgers MD, Phone: ??[phone] Performed at: ?? - [facility] [address] ??[id number] Lab Technologist: Flores Rodgers MD, Phone: ??[phone] Specimen (Source)Anatomical Location / LateralityCollection Method / [...] PM EDT) Narrative Authorizing ProviderResult TypeResult StatusAmy [place] PALAB BLOOD ORDERABLES Final ResultPerforming OrganizationAddressCity/State/ZIP CodePhone Number EXTERNAL LAB from Last 3 Months or Most Recently Relevant to Health Maintenance Additional Health Concerns Active ProblemsNoted DateDiagnosed DatePatient on antidepressant monitoring plan 02/01/2024aseline PHQ-9002/01/2024 [place] [address] Care Teams Team MemberRelationshipSpecialtyStart DateEnd Date Riddhi Plata MD [address] [place] [address] PCP - GeneralFamily Medicine01/16/23
--- OUTSIDE RECORDS SUMMARY | 2025-09-08 11:07 | XMS_ITS | Encounter Summary ---
Author Organization [facility] tem Address [id number] [address] [place] [address] Care Team Providers Care Machine Stacker Name Role Phone Riddhi Plata MD Primary Care Provider [phone] Encounter Details DateTypeDepartmentCare Team (Latest Contact Info)Gwyvfytuaqp44/15/2025Orders Only Maternal- Medicine at [facility] [address] [place] [phone] Sana Lima MD [address] [place] [address] Severe obesity due to excess calories affecting in second trimester ([facility]) (Primary Dx); Hx of gastric bypass Social History Tobacco UseTypesPacks/DayYears UsedDateSmoking Tobacco: NeverSmokeless Tobacco: NeverAlcohol UseStandard Drinks/WeekCommentsNot Currently0 (1 standard drink = 0.6 oz pure alcohol)socialREG[facility] H[facility] UtilitiesAnswerDate RecordedIn the past 12 months has [...] care, and heating?Not hard at all06/23/2025PHQ-2AnswerDate RecordedTotal Dqqtt549 PRAPARE - TransportationAnswerDate RecordedIn the past 12 [...] for you to work or study?No06/23/2025 EmploymentAnswerDate IhwmboubQxebzpnpsdLvajxgp50/06/2019Hunger ScreeningAnswer Date RecordedWithin the past 12 months we worried whether our food would run out before we got money to buy more.Never True06/23/2025Within the past 12 months the food we bought just didn't last and we didn't have money to get more.Never True06/23/2025Purpose - LifeAnswerDate RecordedPurpose and direction in life Fookxep76/27/2021Estimated Date of XndswfnmPgpqjttpJtm37/06/2026Based on last menstrual period of 01/09/2025Sex and Gender InformationValueDate RecordedSex Assigned at YlnbuMkywpv58/20/2022 9:31 PM ESTLegal VxhBpzbbe20/06/2015 11:49 AM EDTGender SkvjdameRogugy40/20/2022 9:31 PM ESTSexual OrientationStraight 07/30/2022 9:31 PM ESTdocumented as of this encounter Plan of Treatment DateTypeDepartmentCare Team (Latest Contact Info)Jobnvdqpebr92/30/2025 2:15 PM ESTHospital Encounter [facility] - Ultrasound [address] [place] [address] 09/15/2025 8:30 AM ESTTelemedicine Maternal- Medicine at [facility] [address] [place] [address] Sana Lima MD [address] [place] [address] Dinah Jacobsen RN [address] [address] Stacy Aquino LD [address] [address] 09/15/2025 11:00 AM ESTOffice Visit Maternal- Medicine at [facility] [address] [place] [address] Lara Looney, PAPamelaC [address] [address] 09/17/2025 10:15 AM ESTOffice Visit [facility] [address] [place] [phone] Jalyn Vidal, DO [address] [address] 09/22/2025 3:15 PM ESTAppointment [facility] - Ultrasound [address] [place] [phone] documented as of this encounter Goals GoalPatient [...]
--- OUTSIDE RECORDS SUMMARY | 2025-09-08 11:07 | XMS_ITS | Encounter Summary ---
Author Organization [facility] tem Address [facility] [id number] [address] [place] [address] Care Team Providers Care Lumber Buyer Name Role Phone Riddhi Plata MD Primary Care Provider [phone] Reason for Referral * Consultation (Routine) - Pending ReviewSpecialtyDiagnoses / ProceduresReferred By ContactReferred To ContactMaternal and Medicine Diagnoses Insulin controlled gestational diabetes mellitus (GDM) in third trimester H/O gastric bypass Sana Lima MD [address] [place] [address] Phone: tel: fax: Maternal- Medicine at [facility] [address] [place] [address] Phone: tel: fax: Referral IDStatusReasonStart DateExpiration DateVisits RequestedVisits [id number] Review Specialty Services Required Encounter Details DateTypeDepartmentCare Team (Latest Contact Info)Snkoiwkunnw62/24/2025Orders Only Maternal- Medicine at [facility] [address] [place] [address] Stacy Aquino, TED [address] [facility] [address] [place] [address] Insulin controlled gestational diabetes mellitus (GDM) in third trimester (Primary Dx); H/O gastric bypass Social History Tobacco UseTypesPacks/DayYears UsedDateSmoking Tobacco: NeverSmokeless Tobacco: NeverAlcohol UseStandard Drinks/WeekCommentsNot Currently0 (1 standard drink = 0.6 oz pure alcohol)[facility] UtilitiesAnswerDate RecordedIn the past 12 months has the [employer], gas, oil, or water [employer] threatened to shut off services in [...] care, and heating?Not hard at all06/23/2025PHQ-2AnswerDate RecordedTotal Ltqer994 PRAPARE - TransportationAnswerDate RecordedIn the past 12 [...] of a household?No06/23/2025hildcareAnswerDate RecordedDo problems getting child caregiver make it difficult for you to work or study?No06/23/2025 EmploymentAnswerDate NsnrjvezSyvxcjpigvIwivpox45/06/2019Hunger ScreeningAnswer Date RecordedWithin the past 12 months we worried whether our food would run out before we got money to buy more.Never True06/23/2025Within the past 12 months the food we bought just didn't last and we didn't have money to get more.Never True06/23/2025Purpose - LifeAnswerDate RecordedPurpose and direction in life Nafvlao68/27/2021Estimated Date of CkhxjqfxAvvdzzobYyu20/06/2026Based on last menstrual period of 01/09/2025Sex and Gender InformationValueDate RecordedSex Assigned at QomcpHixtom70/20/2022 9:31 PM ESTLegal CroDcflvq12/06/2015 11:49 AM EDTGender JbicbtxeHgozwu36/20/2022 9:31 PM ESTSexual OrientationStraight 07/30/2022 9:31 PM ESTdocumented as of this encounter Plan of Treatment DateTypeDepartmentCare Team (Latest Contact Info)Cgwxzxewujg31/30/2025 2:15 PM ESTHospital Encounter [facility] - Ultrasound [address] [place] [address] 09/15/2025 8:30 AM ESTTelemedicine Maternal- Medicine at [facility] [address] [place] [address] Sana Lima MD [address] [place] [address] Dinah Jacobsen RN [address] [facility], [address] [place] [address] Stacy Aquino LD [address] [address] 09/15/2025 11:00 AM ESTOffice Visit Maternal- Medicine at [facility] [address] [place] [place] [phone] Lara Looney, PA-C [address] [place] [address] 09/17/2025 10:15 AM ESTOffice Visit [facility] Pulmonary/Sleep Medicine [address] [facility] [place] [phone] Jalyn Vidal, DO [address] [address] 09/22/2025 3:15 PM ESTAppointment [facility] - Ultrasound [address] [place] [address] NameTypePriorityAssociated DiagnosesOrder ScheduleMaternal- Medicine at [facility] - Nutrition and Diabetes EducationOutpatient Referral [...]
--- OUTSIDE RECORDS SUMMARY | 2025-09-08 11:07 | XMS_ITS | Encounter Summary ---
Author Organization [facility] tem Address [id number] [address] [place] [address] Care Team Providers Care Financial Reporting Director Name Role Phone Riddhi Plata MD Primary Care Provider [phone] Encounter Details DateTypeDepartmentCare Team (Latest Contact Info)Zvsiecnpqhg19/18/2025Telephone Maternal- Medicine at [facility] [address] [facility] [place] [address] Cristhian Taylor Social History Tobacco UseTypesPacks/DayYears UsedDateSmoking Tobacco: NeverSmokeless Tobacco: NeverAlcohol UseStandard Drinks/WeekCommentsNot Currently0 (1 standard drink = 0.6 oz pure alcohol)[facility] UtilitiesAnswerDate RecordedIn the past 12 months has the [employer], gas, oil, or water [employer] threatened to shut off services in your [...] care, and heating?Not hard at all06/23/2025PHQ-2AnswerDate RecordedTotal Xocdg470 PRAPARE - TransportationAnswerDate RecordedIn the past 12 [...] of a household?No06/23/2025hildcareAnswerDate RecordedDo problems getting childcare teacher make it difficult for you to work or study?No06/23/2025 EmploymentAnswerDate OtenuxceWjqwedhxckZzuicfr77/06/2019Hunger ScreeningAnswer Date RecordedWithin the past 12 months we worried whether our food would run out before we got money to buy more.Never True06/23/2025Within the past 12 months the food we bought just didn't last and we didn't have money to get more.Never True06/23/2025Purpose - LifeAnswerDate RecordedPurpose and direction in life Kzxcfil52/27/2021Estimated Date of MglklmweIhpfwilmMji26/06/2026Based on last menstrual period of 01/09/2025Sex and Gender InformationValueDate RecordedSex Assigned at DhsqdZnutzm85/20/2022 9:31 PM ESTLegal MzuUppgxv55/06/2015 11:49 AM EDTGender BuorpsqbNdkrtc67/20/2022 9:31 PM ESTSexual OrientationStraight 07/30/2022 9:31 PM ESTdocumented as of this encounter Miscellaneous Notes * Telephone Encounter - Cristhian Taylor - 08/27/2025 3:14 PM EST Called pt and lmom in regards to scheduling 2 week follow up with a provider for diabetes. Told to call schedulers when able to do so. ramya documented in this encounter Plan of Treatment DateTypeDepartmentCare Team (Latest Contact Info)Nsihvgbpljp27/30/2025 2:15 PM ESTHospital Encounter [facility] - Ultrasound [address] [place] [address] 09/15/2025 8:30 AM ESTTelemedicine Maternal- Medicine at [facility] [address] [place] [address] Sana Lima MD [address] [place] [address] Dinah Jacobsen RN [address] [address] Stacy Aquino LD [address] [facility] [address] [address] 09/15/2025 11:00 AM ESTOffice Visit Maternal- Medicine at [facility] [address] [facility] [place] [address] Lara Looney, PAPamelaC [address] [address] 09/17/2025 10:15 AM ESTOffice Visit [facility] [address] [facility] [place] [phone] Jalyn Vidal, DO [address] [address] 09/22/2025 3:15 PM ESTAppointment [facility] - Ultrasound [address] [place] [address] documented as of this encounter Goals GoalPatient [...]
--- OUTSIDE RECORDS SUMMARY | 2025-09-08 11:07 | XMS_ITS | Encounter Summary ---
Author Organization [facility] tem Address [id number] [address] [place] [address] Care Team Providers Care Repairer Welding Systems And Equipment Name Role Phone Riddhi Plata MD Primary Care Provider [phone] Encounter Details DateTypeDepartmentCare Team (Latest Contact Info)Vmjgjxqtfvc76/23/2025Orders Only [facility] - Labor [address] [place] [address] Sana Lima MD [address] [place] [address] Social History Tobacco UseTypesPacks/DayYears UsedDateSmoking Tobacco: NeverSmokeless Tobacco: NeverAlcohol UseStandard Drinks/WeekCommentsNot Currently0 (1 standard drink = 0.6 oz pure alcohol)[facility] UtilitiesAnswerDate RecordedIn the past 12 months has [...] care, and heating?Not hard at all06/23/2025PHQ-2AnswerDate RecordedTotal Irsdb212 PRAPARE - TransportationAnswerDate RecordedIn the past 12 [...] for you to work or study?No06/23/2025 EmploymentAnswerDate CeufxrqdDlrhgzgstiTjanwui02/06/2019Hunger ScreeningAnswer Date RecordedWithin the past 12 months we worried whether our food would run out before we got money to buy more.Never True06/23/2025Within the past 12 months the food we bought just didn't last and we didn't have money to get more.Never True06/23/2025Purpose - LifeAnswerDate RecordedPurpose and direction in life Yzioifs51/27/2021Estimated Date of EwqsnefoJwoibdbvGxm00/06/2026Based on last menstrual period of 01/09/2025Sex and Gender InformationValueDate RecordedSex Assigned at OlgitPrbkvp95/20/2022 9:31 PM ESTLegal WxvCpsexx14/06/2015 11:49 AM EDTGender UjrwgsuwTlihjo73/20/2022 9:31 PM ESTSexual OrientationStraight 07/30/2022 9:31 PM ESTdocumented as of this encounter Plan of Treatment DateTypeDepartmentCare Team (Latest Contact Info)Gjfyivyvjqn95/30/2025 2:15 PM ESTHospital Encounter [facility] - Ultrasound [address] [place] [address] 09/15/2025 8:30 AM ESTTelemedicine Maternal- Medicine at [facility] [address] [place] [address] Sana Lima MD [address] [place] [address] Dinah Jacobsen RN [address] [facility], [address] [place] [address] Stacy Aquino LD [address] [address] 09/15/2025 11:00 AM ESTOffice Visit Maternal- Medicine at [facility] [address] [place] [address] Lara Looney, PA-C [address] [address] 09/17/2025 10:[address] [facility] [address] [facility] [place] [phone] Jalyn Vidal, DO [address] [address] 09/22/2025 3:15 PM ESTAppointment [facility] - Ultrasound [address] [place] [address] documented as of this encounter [...]
--- OUTSIDE RECORDS SUMMARY | 2025-09-08 11:07 | XMS_ITS | Encounter Summary ---
Author Organization [facility] tem Address [facility] [place][id number] [address] [place] [address] Care Team Providers Care Manager Bilingual Name Role Phone Riddhi Plata MD Primary Care Provider [phone] Reason for Referral * Diagnostic Imaging (Routine) - Pending ReviewSpecialtyDiagnoses / Procedures Referred By ContactReferred To ContactMaternal and Medicine Diagnoses Poor growth affecting management of mother in third trimester, single or unspecified fetus Procedures US MFM with or without consult Sana Lima MD [address] [place] [address] Phone: tel: fax: Maternal- Medicine at [place] [address] [place] [address] Phone: tel: fax: Referral IDStatusReasonStart DateExpiration DateVisits RequestedVisits [id number] Encounter Details DateTypeDepartmentCare Team (Latest Contact Info)Jfbxvwvzdly49/16/2025Orders Only Maternal- Medicine at [place] [address] [place] [address] Josie Corona, RN Poor growth affecting management of mother in third trimester, single or unspecified fetus (Primary Dx) Social History Tobacco UseTypesPacks/DayYears UsedDateSmoking Tobacco: NeverSmokeless Tobacco: NeverAlcohol UseStandard Drinks/WeekCommentsNot Currently0 (1 standard drink = 0.6 oz pure alcohol)[facility] UtilitiesAnswerDate RecordedIn the past 12 months has the [employer], gas, oil, or water [employer] threatened to shut off services in [...] care, and heating?Not hard at all06/23/2025PHQ-2AnswerDate RecordedTotal Uqfmb327 PRAPARE - TransportationAnswerDate RecordedIn the past 12 [...] a household?No06/23/2025hildcareAnswerDate RecordedDo problems getting child care coordinator make it difficult for you to work or study?No06/23/2025 EmploymentAnswerDate BdpkjrrpAcepszldwxChxjziq21/06/2019Hunger ScreeningAnswer Date RecordedWithin the past 12 months we worried whether our food would run out before we got money to buy more.Never True10/14/2025Within the past 12 months the food we bought just didn't last and we didn't have money to get more.Never True06/23/2025Purpose - LifeAnswerDate RecordedPurpose and direction in life Jqcrdrb44/27/2021Estimated Date of InjzpksfKdcaohzrNgg90/06/2026Based on last menstrual period of 01/09/2025Sex and Gender InformationValueDate RecordedSex Assigned at DmrekTrukqf27/20/2022 9:31 PM ESTLegal IwuJujhkz81/06/2015 11:49 AM EDTGender QqdyunfeHbyrec00/20/2022 9:31 PM ESTSexual OrientationStraight 07/30/2022 9:31 PM ESTdocumented as of this encounter Plan of Treatment DateTypeDepartmentCare Team (Latest Contact Info)Vreemcyzwix57/30/2025 2:15 PM ESTHospital Encounter [facility] - Ultrasound [address] [place] [address] 09/15/2025 8:30 AM ESTTelemedicine Maternal- Medicine at [place] [address] [place] [address] Sana Lima MD [address] [place] [address] Dinah Jacobsen RN [address], [address] [place] [address] Stacy Aquino LD [address] [phone] 09/15/2025 11:00 AM ESTOffice Visit Maternal- Medicine at [place] [address] [place] [address] Lara Looney, PAPamelaC [address] [address] 09/17/2025 10:15 AM ESTOffice Visit [facility]icians Pulmonary/Sleep Medicine [address] [place] [address] Jalyn Vidal, DO [address] [address] 09/22/2025 3:15 PM ESTAppointment [facility] - Ultrasound [address] [place] [address] NameTypePriorityAssociated DiagnosesOrder ScheduleUS MFM with [...]
--- OUTSIDE RECORDS SUMMARY | 2025-09-08 11:07 | XMS_ITS | Encounter Summary ---
Author Organization [facility] Address [address] [facility] [place] [address] Care Team Providers Care Paint Laboratory Technician Name Role Phone Jessica Mariscal MD Primary Care Provider [phone] Encounter Details DateTypeDepartmentCare Team (Latest Contact Info)Ktjvmiyyxmf83/16/2025linisync Result Encounter [facility] External Department Unsolicited Gonzalez Morales DO [address] [facility] [place] [address] Social History Tobacco UseTypesPacks/DayYears UsedDateSmoking Tobacco: NeverSmokeless Tobacco: NeverAlcohol UseStandard Drinks/WeekCommentsNever0 (1 standard drink = 0.6 oz pure alcohol)Caffeine intake: 1-2 cups per day coffeeEstimated Date of YbwpqpzsDyogatsyQck25/06/2026ased on last menstrual period of 01/09/2025Sex and Gender InformationValueDate RecordedSex Assigned at BirthNot on fileLegal Sex Lacnpl0711/22/2022 9:44 PM EDTGender IdentityNot on fileSexual OrientationNot on filedocumented as of this encounter Plan of Treatment DateTypeDepartmentCare Team (Latest Contact Info)Skstxddigoa47/31/2025 9:40 AM ESTRoutine [facility] Nichole TAYLOR [address] [place] [address] Nena Spicer, RONALD [address] [facility] [address] [place] [address] documented as of this encounter Goals GoalPatient Goal TypeAssociated ProblemsRecent ProgressPatient-Stated?Author Help patient manage antidepressant medication Care PlanPatient on antidepressant monitoring Jessica Mcdonald MD Baseline PHQ-9 Care PlanBaseline PHQ-9Jessica Lerma MDdocumented as of this encounter Procedures Procedure NamePriorityDate/TimeAssociated DiagnosisCommentsUS OB BPP W NON-HGRNHC6308/25/2025 12:15 PM EST documented in this encounter Results * US OB BPP W NON-STRESS (08/25/2025 12:15 PM EST)Anatomical Region LateralityModalityOtherSpecimen (Source)Anatomical Location / Laterality Collection Method / VolumeCollection TimeReceived Time08/25/2025 12:15 PM EST Narrative 08/25/2025 12:18 PM EST [facility] ?[address] ? [place] [address] ? Ultrasound Report ? Signed ? Patient: SHIRA JETT L ? MR#: [id number] ?? : 1995 ?Acct:[id number] ?? Age/Sex: 30 / F ?ADM Date: 08/25/25 ?? Loc: US ? Attending Dr: Gonzalez Morales D.O. ? Ordering Physician: Gonzalez Morales D.O. ?? Date of Service: 08/25/25 ?? Procedure(s): US OB BPP w non-stress ?? Accession Number(s): [id number] ? cc: JESSICA MARISCAL ; Gonzalez Morales D.O. ? [facility] ? [address] ? [place] [address] ? Patient Name: ?? SHIRA JETT ? MRN: [id number] ? date: 1995 ?Sex: F ?? Assigned Patient Location: [facility]BC ?? Current Patient Location: ? Accession/Order Number: [id number] ?? Exam Date: 08/25/2025 ??11:00 ?Report Date: 08/25/2025 ??12:15 ? At the request of: ?? GONZALEZ ??CAMREN ??DO ? Procedure: ??US OB BPP w [...] Dictation Location: RADIO-PC-30 ? Electronically authenticated by: [id number] ??Y ?? Date: 08/25/2025 ??12:15 ? Dictated By: ?Lakshmi Harmon M.D. ? Signed By: ?12/16/25 1218 ? DD/ 1215 ? TD/TT: ? Client Care Specialist: Procedure Note Radiology, Radiologist, MD - 08/25/2025 [place] [address] Ultrasound Report Signed Patient: SHIRA JETT LMR#: [id number] : 1995Acct:[id number] Age/Sex: 30 / FADM Date: 08/25/25 Loc: US Attending Dr: Gonzalez Morales D.O. Ordering Physician: Gonzalez Morales D.O. Date of Service: 08/25/25 Procedure(s): US OB BPP w non-stress Accession Number(s): [id number] cc: JESSICA MARISCAL ; Gonzalez Morales D.O. The [place] [id number] Patient Name: SHIRA JETT MRN: [id number] date: 1995 Sex: F Assigned Patient Location: [facility] Current Patient Location: Accession/Order Number: [id number] Exam Date: 08/25/2025 11:00 Report Date: 08/25/2025 [...] Harmon M.D. 08/25/2025 12:15 PM Dictation Location: [employer] Electronically authenticated by: [id number] Y Date: 2:15 Dictated By: Lakshmi Harmon M.D. Signed By:08/25/258 DD/ 14 TD/TT: Client Care Specialist: Authorizing ProviderResult TypeResult StatusCorey Carmen DOCLINISYNC IMAGINGFinal Result documented in this encounter Visit Diagnoses Not on filedocumented in this encounter Additional Health Concerns Active ProblemsNoted DateDiagnosed DatePatient on antidepressant monitoring plan 4Baseline PHQ-904documented as of this encounter Care Teams Team MemberRelationshipSpecialtyStart DateEnd Date Jessica Mariscal MD [address] [place] [address] PCP - GeneralFamily Medicine01/16/23documented as of this encounter
--- OUTSIDE RECORDS SUMMARY | 2025-09-08 11:07 | XMS_ITS | Encounter Summary ---
Author Organization [facility] tem Address [id number] [address] [place] [address] Care Team Providers Care Telephone Order Supervisor Name Role Phone Riddhi Plata MD Primary Care Provider [phone] Encounter Details DateTypeDepartmentCare Team (Latest Contact Info)Wxtukrrgtjt58/24/2025Telephone Maternal- Medicine at [facility] [address] [place] [address] Stacy Aquino, [address] [facility] 1ST [place] [address] Social History Tobacco UseTypesPacks/DayYears UsedDateSmoking Tobacco: NeverSmokeless Tobacco: NeverAlcohol UseStandard Drinks/WeekCommentsNot Currently0 (1 standard drink = 0.6 oz pure alcohol)[facility] UtilitiesAnswerDate RecordedIn the past 12 months has the [employer], gas, oil, or water [employer] threatened to shut off services in your [...] care, and heating?Not hard at all06/23/2025PHQ-2AnswerDate RecordedTotal Njclz374 PRAPARE - TransportationAnswerDate RecordedIn the past 12 [...] a household?No06/23/2025hildcareAnswerDate RecordedDo problems getting child life assistant make it difficult for you to work or study?No06/23/2025 EmploymentAnswerDate RugnpxldFxorhramciXqgsznd41/06/2019Hunger ScreeningAnswer Date RecordedWithin the past 12 months we worried whether our food would run out before we got money to buy more.Never True06/23/2025Within the past 12 months the food we bought just didn't last and we didn't have money to get more.Never True06/23/2025Purpose - LifeAnswerDate RecordedPurpose and direction in life Etenwts73/27/2021Estimated Date of GfworwghDpvkslyhDlm52/06/2026Based on last menstrual period of 01/09/2025Sex and Gender InformationValueDate RecordedSex Assigned at WercsCfxcdn46/20/2022 9:31 PM ESTLegal TrsGitwwm33/06/2015 11:49 AM EDTGender CuddaczzTcejbm43/20/2022 9:31 PM ESTSexual OrientationStraight 07/30/2022 9:31 PM ESTdocumented as of this encounter Miscellaneous Notes * Telephone Encounter - TED Kelley - 09/02/2025 11:21 AM EST Talked to patient about her concerns about going up to 3 units at lunch. (She sent a [employer] message mentioning fear of taking Humalog if [...] provider to order these to Antoine in [place]. Also explained that the purpose of meal insulin is to cover the carbs that she is about to eat so that her glucose will stay below a goal of 140 mg/dL. Patient expressed understanding of this and will start taking Humalog before each carb containing meal as ordered. KIERA GuerraM, changed her lunch dose back to 2 [...] Plan of Treatment DateTypeDepartmentCare Team (Latest Contact Info)Yoxberzhiru53/30/2025 2:15 PM ESTHospital Encounter [facility] - Ultrasound [address] [place] [address] 09/15/2025 8:30 AM ESTTelemedicine Maternal- Medicine at [facility] [address] [place] [phone] Sana Lima MD [address] [place] [address] Dinah Jacobsen RN [address] [facility], [address] [place] [address] Stacy Aquino LD [address] 1ST [place] [address] 09/15/2025 11:00 AM ESTOffice Visit Maternal- Medicine at [facility] [address] [place] [address] Lara Looney, PA-C [address] [place] [address] 09/17/2025 10:15 AM ESTOffice Visit [facility] Physicians Pulmonary/Sleep Medicine [address] [facility] [place] [phone] Jalyn Vidal, DO [address] [phone] 09/22/2025 3:15 PM ESTAppointment [facility] - Ultrasound [address] [place] [address] documented as of this encounter Goals GoalPatient [...]
--- OUTSIDE RECORDS SUMMARY | 2025-09-08 11:07 | XMS_ITS | Encounter Summary ---
Author Organization [facility] Address [address] [place] [address] Care Team Providers Care Security And Privacy Consultant Name Role Phone Riddhi Plata MD Primary Care Provider [phone] Encounter Details DateTypeDepartmentCare Team (Latest Contact Info)Fduepzxdwgl15/16/2025bstract [address] [place] [address] Bin Morales DO [address] [place], [facility]11 Social History Tobacco UseTypesPacks/DayYears UsedDateSmoking Tobacco: NeverSmokeless Tobacco: NeverAlcohol UseStandard Drinks/WeekCommentsNever0 (1 standard drink = 0.6 oz pure alcohol)Caffeine intake: 1-2 cups per day coffeeEstimated Date of TuiuqyfjGgkzxdxlYiq51/06/2026Based on last menstrual period of 01/09/2025Sex and Gender InformationValueDate RecordedSex Assigned at BirthNot on fileLegal Sex Crlqin3111/22/2022 9:44 PM EDTGender IdentityNot on fileSexual OrientationNot on filedocumented as of this encounter Plan of Treatment DateTypeDepartmentCare Team (Latest Contact Info)Vnltrhiynuq98/31/2025 9:[address] [place] [address] Nena Spicer, STORES LABORER [address] [place] [address] documented as of this encounter Goals [...] DateEnd Date Riddhi Plata MD [address] [place] [address] PCP - GeneralFamily Medicine01/16/23documented as of this encounter
--- OUTSIDE RECORDS SUMMARY | 2025-09-08 11:07 | XMS_ITS | Encounter Summary ---
Author Organization [facility] tem Address [id number] [address] [place] [address] Care Team Providers Care Skylights Assembler Name Role Phone Riddhi Plata MD Primary Care Provider [phone] Encounter Details DateTypeDepartmentCare Team (Latest Contact Info)Lkibrqayedc89/24/2025Orders Only Maternal- Medicine at [facility] [address] [facility] [place] [address] Tracy Kolb, FOUNDRY OPERATORAUSTEN RIG[facility] [address] [facility] 1[place] [address] H/O gastric bypass (Primary Dx) Social History Tobacco UseTypesPacks/DayYears UsedDateSmoking Tobacco: NeverSmokeless Tobacco: NeverAlcohol UseStandard Drinks/WeekCommentsNot Currently0 (1 standard drink = 0.6 oz pure alcohol)socialPRE[facility] UtilitiesAnswerDate RecordedIn the past 12 months has the [employer], gas, oil, or water [employer] threatened to shut off services in your [...] care, and heating?Not hard at all06/23/2025PHQ-2AnswerDate RecordedTotal Okpdx205 PRAPARE - TransportationAnswerDate RecordedIn the past 12 [...] of a household?No06/23/2025hildcareAnswerDate RecordedDo problems getting child center assistant make it difficult for you to work or study?No06/23/2025 EmploymentAnswerDate XeeytohmIjndjosbgbRvgdicp89/06/2019Hunger ScreeningAnswer Date RecordedWithin the past 12 months we worried whether our food would run out before we got money to buy more.Never True06/23/2025Within the past 12 months the food we bought just didn't last and we didn't have money to get more.Never True06/23/2025Purpose - LifeAnswerDate RecordedPurpose and direction in life Yyljqhb86/27/2021Estimated Date of ShfwompgMyuyiviyYvx64/06/2026Based on last menstrual period of 01/09/2025Sex and Gender InformationValueDate RecordedSex Assigned at VqsdfGxcrvp55/20/2022 9:31 PM ESTLegal KmwSjcfsr85/06/2015 11:49 AM EDTGender HdnklbthNwqtvo28/20/2022 9:31 PM ESTSexual OrientationStraight 07/30/2022 9:31 PM ESTdocumented as of this encounter Plan of Treatment DateTypeDepartmentCare Team (Latest Contact Info)Tkekmlnrykt22/30/2025 2:15 PM ESTHospital Encounter [facility] - Ultrasound [address] [place] [address] 09/15/2025 8:30 AM ESTTelemedicine Maternal- Medicine at [facility] [address] [place] [address] Sana Lima MD [address] [place] [address] Dinah Jacobsen RN [address] [facility], [address] [place] [address] Stacy Aquino LD [address] [facility] 1ST [place] [address] 09/15/2025 11:00 AM ESTOffice Visit Maternal- Medicine at [facility] [address] [facility] [place] [address] Lara Looney, PA-C [address] [place] [address] 09/17/2025 10:15 AM ESTOffice Visit [facility] [address] [facility] [place] [address] Jalyn Vidal, DO [address] [address] 09/22/2025 3:15 PM ESTAppointment [facility] - Ultrasound [address] [facility] [place] [address] documented as of this encounter Goals GoalPatient [...]
--- OUTSIDE RECORDS SUMMARY | 2025-09-08 11:07 | XMS_ITS | Encounter Summary ---
Author Organization [facility] tem Address [id number] [address] [place] [address] Care Team Providers Care Algebraist Name Role Phone Riddhi Plata MD Primary Care Provider [phone] Encounter Details DateTypeDepartmentCare Team (Latest Contact Info)Pdzphhdkski45/24/2025Telephone Maternal- Medicine at [facility] [address] [place] [address] Stacy Aquino, [address] [facility] 1ST [place] [address] Social History Tobacco UseTypesPacks/DayYears UsedDateSmoking Tobacco: NeverSmokeless Tobacco: NeverAlcohol UseStandard Drinks/WeekCommentsNot Currently0 (1 standard drink = 0.6 oz pure alcohol)[facility] UtilitiesAnswerDate RecordedIn the past 12 months has the [employer], gas, oil, or water [employer] threatened to shut off services in your [...] care, and heating?Not hard at all06/23/2025PHQ-2AnswerDate RecordedTotal Jgngk137 PRAPARE - TransportationAnswerDate RecordedIn the past 12 [...] of a household?No06/23/2025hildcareAnswerDate RecordedDo problems getting child psychiatrist make it difficult for you to work or study?No06/23/2025 EmploymentAnswerDate RktjzdymNgezsachdvImdbqbt17/06/2019Hunger ScreeningAnswer Date RecordedWithin the past 12 months we worried whether our food would run out before we got money to buy more.Never True06/23/2025Within the past 12 months the food we bought just didn't last and we didn't have money to get more.Never True06/23/2025Purpose - LifeAnswerDate RecordedPurpose and direction in life Oygrmlf01/27/2021Estimated Date of HrfuvvxvPiaqqvnsQah34/06/2026Based on last menstrual period of 01/09/2025Sex and Gender InformationValueDate RecordedSex Assigned at XjvvnDufpdv92/20/2022 9:31 PM ESTLegal ZfyGhaluo88/06/2015 11:49 AM EDTGender WnietwkaBukfaj79/20/2022 9:31 PM ESTSexual OrientationStraight 07/30/2022 9:31 PM [...] nutrition education. Instructed patient to please call [phone], option 1, to schedulethis either in person or video visit. Will also send patient a [employer] message and asked patient tocontact us to let us know that she received her insulin change. documented in this encounter Plan of Treatment DateTypeDepartmentCare Team (Latest Contact Info)Zxmqicucgpo13/30/2025 2:15 PM ESTHospital Encounter [facility] - Ultrasound [address] [place] [address] 09/15/2025 8:30 AM ESTTelemedicine Maternal- Medicine at [facility] [address] [place] [address] Sana Lima MD [address] [place] [address] Dinah Jacobsen RN [address] [facility], [address] [place] [address] Stacy Aquino LD [address] [place] [address] 09/15/2025 11:00 AM ESTOffice Visit Maternal- Medicine at [facility] [address] [place] [address] Lara Looney PAPamelaC [address] [facility] [address] [address] 09/17/2025 10:15 AM ESTOffice Visit [facility] Pul[facility]Sleep [facility] [address] [place] [address] Jalyn Vidal, DO [address] [address] 09/22/2025 3:15 PM ESTAppointment [facility] - Ultrasound [address] [place] [address] documented as of this encounter [...]
--- OUTSIDE RECORDS SUMMARY | 2025-09-08 11:07 | XMS_ITS | Encounter Summary ---
Author Organization [facility] tem Address [id number] [address] [place] [address] Care Team Providers Care Senior It Recruiter Name Role Phone Riddhi Plata MD Primary Care Provider [phone] Encounter Details DateTypeDepartmentCare Team (Latest Contact Info)Remfpzriubr46/16/2025Telephone Maternal- Medicine at [facility] [address] [facility] [place] [address] Shayla Alex RN Social History Tobacco UseTypesPacks/DayYears UsedDateSmoking Tobacco: NeverSmokeless Tobacco: NeverAlcohol UseStandard Drinks/WeekCommentsNot Currently0 (1 standard drink = 0.6 oz pure alcohol)[facility] UtilitiesAnswerDate RecordedIn the past 12 months has the [employer], gas, oil, or water [employer] threatened to shut off services in [...] care, and heating?Not hard at all06/23/2025PHQ-2AnswerDate RecordedTotal Axszs992 PRAPARE - TransportationAnswerDate RecordedIn the past 12 [...] a household?No06/23/2025hildcareAnswerDate RecordedDo problems getting child support specialist make it difficult for you to work or study?No06/23/2025 EmploymentAnswerDate BxidvppxFvnfkkbfutHpmxqpc74/06/2019Hunger ScreeningAnswer Date RecordedWithin the past 12 months we worried whether our food would run out before we got money to buy more.Never True06/23/2025Within the past 12 months the food we bought just didn't last and we didn't have money to get more.Never True06/23/2025Purpose - LifeAnswerDate RecordedPurpose and direction in life Wavcskj40/27/2021Estimated Date of GydadrhyUdvckyrlIat86/06/2026Based on last menstrual period of 01/09/2025Sex and Gender InformationValueDate RecordedSex Assigned at WlupoKcvquw32/20/2022 9:31 PM ESTLegal SeeJgklvk25/06/2015 11:49 AM EDTGender NnxaiogjShyamh17/20/2022 9:31 PM ESTSexual OrientationStraight 07/30/2022 9:31 PM [...] Plan of Treatment DateTypeDepartmentCare Team (Latest Contact Info)Owlakyiyqun54/30/2025 2:15 PM ESTHospital Encounter [facility] - Ultrasound [address] [place] [address] 09/15/2025 8:30 AM ESTTelemedicine Maternal- Medicine at [facility] [address] [place] [address] Sana Lima MD 2 [place] [address] Dinah Jacobsen RN [address] [address] Stacy Aquino LD [address] [address] 09/15/2025 11:00 AM ESTOffice Visit Maternal- Medicine at [facility] [address] [place] [address] Lara Looney PAPing [address] [facility] [address] [address] 09/17/2025 10:15 AM ESTOffice Visit [facility] Pul[facility]/Sleep Medicine [address] [facility] [place] [address] Jalyn Vidal, DO [address] [address] 09/22/2025 3:15 PM ESTAppointment [facility] - Ultrasound [address] [place] [address] documented as of this encounter [...]
--- OUTSIDE RECORDS SUMMARY | 2025-09-08 11:07 | XMS_ITS | Encounter Summary ---
Author Organization [facility] Address [address] [facility] [place] [address] Care Team Providers Care Demand Planning Manager Name Role Phone Riddhi Plata MD Primary Care Provider [phone] Encounter Details DateTypeDepartmentCare Team (Latest Contact Info)Nhqkkrmzqed19/17/2025amboo flowsheet [address] [place] [address] Winter English PA [address] [facility] [address] [place], [facility]11 Social History Tobacco UseTypesPacks/DayYears UsedDateSmoking Tobacco: NeverSmokeless Tobacco: NeverAlcohol UseStandard Drinks/WeekCommentsNever0 (1 standard drink = 0.6 oz pure alcohol)Caffeine intake: 1-2 cups per day coffeeEstimated Date of SycqmjirZollnmcmAhy55/06/2026Based on last menstrual period of 01/09/2025Sex and Gender InformationValueDate RecordedSex Assigned at BirthNot on fileLegal Sex Zfwzxp3611/22/2022 9:44 PM EDTGender IdentityNot on fileSexual OrientationNot on filedocumented as of this encounter Plan of Treatment DateTypeDepartmentCare Team (Latest Contact Info)Hasqqvvefwy19/31/2025 9:40 AM ESTRoutine NOMEl TAYLOR [address] [facility] [place] [address] Nena Spicer, RONALD [address] [facility] [place] [address] documented as of this encounter Goals [...] DateEnd Date Riddhi Plata MD [address] [place] [address] PCP - GeneralFamily Medicine01/16/23documented as of this encounter
--- OUTSIDE RECORDS SUMMARY | 2025-09-08 11:07 | XMS_ITS | Encounter Summary ---
Author Organization [facility] tem Address [id number] [address] [place] [address] Care Team Providers Care Hydraulic Operator Name Role Phone Riddhi Plata MD Primary Care Provider [phone] Encounter Details DateTypeDepartmentCare Team (Latest Contact Info)Ymevmfdhsqf76/24/2025Orders Only Maternal- Medicine at [facility] [address] [place] [address] Stacy Aquino, [address] [facility] 1ST [place] [address] Insulin controlled gestational diabetes mellitus (GDM) in third trimester (Primary Dx) Social History Tobacco UseTypesPacks/DayYears UsedDateSmoking Tobacco: NeverSmokeless Tobacco: NeverAlcohol UseStandard Drinks/WeekCommentsNot Currently0 (1 standard drink = 0.6 oz pure alcohol)[facility] UtilitiesAnswerDate RecordedIn the past 12 [...] care, and heating?Not hard at all06/23/2025PHQ-2AnswerDate RecordedTotal Ecgwt741 PRAPARE - TransportationAnswerDate RecordedIn the past 12 [...] a household?No06/23/2025hildcareAnswerDate RecordedDo problems getting child care director make it difficult for you to work or study?No06/23/2025 EmploymentAnswerDate YlhlqnmjXenyhbyanqMzmbfix72/06/2019Hunger ScreeningAnswer Date RecordedWithin the past 12 months we worried whether our food would run out before we got money to buy more.Never True06/23/2025Within the past 12 months the food we bought just didn't last and we didn't have money to get more.Never True06/23/2025Purpose - LifeAnswerDate RecordedPurpose and direction in life Eldmtsj71/27/2021Estimated Date of WtkftnwmKczyhfgkZua63/06/2026Based on last menstrual period of 01/09/2025Sex and Gender InformationValueDate RecordedSex Assigned at QmvqlMkzdpk83/20/2022 9:31 PM ESTLegal GpmYmlzek77/06/2015 11:49 AM EDTGender FrziiyjwYgtvxn72/20/2022 9:31 PM ESTSexual OrientationStraight 07/30/2022 9:31 PM ESTdocumented as of this encounter Plan of Treatment DateTypeDepartmentCare Team (Latest Contact Info)Afpiffehaco02/30/2025 2:15 PM ESTHospital Encounter [facility] - Ultrasound [address] [place] [address] 09/15/2025 8:30 AM ESTTelemedicine Maternal- Medicine at [facility] [address] [place] [address] Sana Lima MD [address] [place] [address] Dinah Jacobsen RN [address] [address] Stacy Aquino LD [address] [address] 09/15/2025 11:00 AM ESTOffice Visit Maternal- Medicine at [facility] [address] [place] [address] Lara Looney PAPing [address] [address] 09/17/2025 10:15 AM ESTOffice Visit [facility]icians Pulmonary/Sleep Medicine [address] [facility] [place] [address] [place] [address] [place] [address] 09/22/2025 3:15 PM ESTAppointment [facility] - Ultrasound [address] [place] [address] documented as of this encounter [...]
[2025-09-08 11:24] VITALS: BP 106/63; PULSE 78
[2025-09-08 12:05] LABS: Glucose Urine UA NEGATIVE (NEGATIVE)
[2025-09-08 12:14] LABS: Cast Seen? SEEN #/LPF (NONE SEEN); Starch Urine FEW
[2025-09-08 12:15] LABS: Crystals Seen? None Seen #/HPF (None Seen)
[2025-09-08 12:16] LABS: Urine Culture Indicated YES-FRMC
[2025-09-08] MEDS: 0.9 % SODIUM CHLORIDE 1,000 ML 1000 ML IV (12:44)
--- OUTSIDE RECORDS SUMMARY | 2025-09-08 14:15 | XMS_ITS | Encounter Summary ---
Author Organization [facility] tem Address [facility][id number] [address] [place] [address] Care Team Providers Care Psychological Operations Specialist Name Role Phone Riddhi Plata MD Primary Care Provider [phone] Reason for Visit * Diagnostic Imaging (Routine) - Pending ReviewSpecialtyDiagnoses / Procedures Referred By ContactReferred To ContactMaternal and Medicine Diagnoses IUGR (intrauterine growth restriction) affecting care of mother, third trimester, other fetus Procedures [facility] with or without consult Bin Morales, DO [address] [facility] [place] [address] Phone: tel: fax: Maternal- Medicine at [facility] [address] [facility] [place] [address] Phone: tel: fax: Referral IDStatusReasonStart DateExpiration DateVisits RequestedVisits [id number] Encounter Details DateTypeDepartmentCare Team (Latest Contact Info)Ozvqtrjrzoj42/30/2025 2:15 PM ESTHospital Encounter [facility] - Ultrasound [address] [place] [address] Social History Tobacco UseTypesPacks/DayYears UsedDateSmoking Tobacco: NeverSmokeless Tobacco: NeverAlcohol UseStandard Drinks/WeekCommentsNot Currently0 (1 standard drink = 0.6 oz pure alcohol)[facility] UtilitiesAnswerDate RecordedIn the past 12 [...] care, and heating?Not hard at all06/23/2025PHQ-2AnswerDate RecordedTotal Ulamq793 PRAPARE - TransportationAnswerDate RecordedIn the past 12 [...] of a household?No06/23/2025hildcareAnswerDate RecordedDo problems getting children's lunchroom supervisor make it difficult for you to work or study?No06/23/2025 EmploymentAnswerDate SwonlmquGfsslgklqpKbrnmem55/06/2019Hunger ScreeningAnswer Date RecordedWithin the past 12 months we worried whether our food would run out before we got money to buy more.Never True06/23/2025Within the past 12 months the food we bought just didn't last and we didn't have money to get more.Never True06/23/2025Purpose - LifeAnswerDate RecordedPurpose and direction in life Bzaoqsm95/27/2021Estimated Date of SzxqekytYojvcyewFca38/06/2026Based on last menstrual period of 01/09/2025Sex and Gender InformationValueDate RecordedSex Assigned at MvrizBfinbx27/20/2022 9:31 PM ESTLegal IovLywaiw17/06/2015 11:49 AM EDTGender PbivrzcuFjldmf15/20/2022 9:31 PM ESTSexual OrientationStraight 07/30/2022 9:31 PM ESTdocumented as of this encounter Plan of Treatment DateTypeDepartmentCare Team (Latest Contact Info)Mujzpyjjbql11/06/2026 8:30 AM ESTTelemedicine Maternal- Medicine at [facility] [address] [place] [address] Sana Lima MD [address] [place] [address] Dinah Jacobsen RN [address] [address] Stacy Aquino LD [address] [facility] [address] [address] 09/15/2025 11:00 AM ESTOffice Visit Maternal- Medicine at [facility] [address] [place] [address] Lara Looney, PAPamelaC [address] [facility] [address] [address] 09/17/2025 10:15 AM ESTOffice Visit [facility] [address] [place] [address] [place] [address] [place] [address] 09/22/2025 3:15 PM ESTAppointment [facility] [address] [place] [address] NameTypePriorityAssociated DiagnosesOrder ScheduleUS MFM with or without consult ImagingRoutine IUGR (intrauterine growth restriction) affecting care of mother, third trimester, other fetus Expected: 09/07/2025, Expires: 09/07/2026documented as of this encounter Goals GoalPatient Goal [...]
== END 2025-09-08 14:00 | disposition home or self-care (01) ==
LOC: US 11:03 → FBC 11:05
PROVIDERS: Obstetrics & Gynecology; PCP Family Medicine; Visit Provider Obstetrics & Gynecology
DX: O16.3 Unspecified maternal hypertension, third trimester (principal); Z3A.34 34 weeks gestation of pregnancy
CPT/HCPCS: 76818; 81001; 87086; 87804